=== PATIENT | male | born 1955 | race Caucasian/White ===

== ENCOUNTER 2022-08-20 06:45 | Outpatient (OUT) | payer OTHER, SELFPAY ==
[2022-08-20 09:53] LABS: Alanine Aminotransferase 31 U/L (16-63); Albumin Globulin Ratio 1.2; Albumin Level 3.7 g/dL (3.4-5.0); Alkaline Phosphatase 68 U/L (46-116); Anion Gap 9.7; Aspartate Amino Transferase 19 U/L (15-37); BUN Creatinine Ratio 23.3; Bilirubin Total 0.9 mg/dL (0.2-1.0); Calcium 9.3 mg/dL (8.5-10.1); Chloride 105 mmol/L (98-107); Estimated GFR (African America >60 (>=60); Estimated GFR (Non-African Ame >60 (>=60); Globulin 3.2 g/dL; Glucose 95 mg/dL (74-106); Potassium 4.7 mmol/L (3.5-5.1); Sodium 142 mmol/L (136-145); Total Protein 6.9 g/dL (6.4-8.2)
[2022-08-21 08:12] LABS: PSA, Free 0.71 ng/mL; Prostate Specific Ag 7.3 ng/mL (0.0-4.0)
== END 2022-08-20 06:46 ==
LOC: LAB 06:53
PROVIDERS: PCP Family Medicine; Visit Provider Family Medicine
DX: M54.16 Radiculopathy, lumbar region (principal)
CPT/HCPCS: 36415; 80053; 84153; 84154

== ENCOUNTER 2022-09-18 06:06 | Outpatient (OUT) | payer OTHER, SELFPAY ==
[2022-09-19 05:09] LABS: PSA, Free 0.59 ng/mL; Prostate Specific Ag 4.5 ng/mL (0.0-4.0)
== END 2022-09-18 06:07 | disposition home or self-care (01) ==
LOC: LAB 06:07
PROVIDERS: PCP Family Medicine; Visit Provider Urology
DX: R97.20 Elevated prostate specific antigen [PSA] (principal)
CPT/HCPCS: 36415; 84153; 84154

== ENCOUNTER 2022-11-20 07:47 | Outpatient (OUT) | payer OTHER, SELFPAY ==
--- NOTE | 2022-11-20 07:53 | ECG_ITS ---
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
--- NOTE | 2022-11-20 08:41 | PM.PRESUREVA ---
History of Present Illness History of Present Illness Chief complaint: elevated PSA Narrative: Patient presents for preadmission testing. Please see HPI from Dr. Guillory dated 10/30/2022. Review of Systems ROS Narrative Please see ROS from Dr. Guillory dated 10/30/2022. [facility] Medical History (Updated 11/20/22 @ 08:26 by Felicia Garcia NP) Surgical History (Updated 11/20/22 @ 08:26 by Felicia Garcia NP) Family History (Updated 11/20/22 @ 08:26 by Felicia Garcia NP) Other Family history of diabetes mellitus Family history of heart disease Melanoma Social History (Updated 11/20/22 @ 08:21 by Felicia Garcia NP) Within the past year, how often did you have a drink containing alcohol: never Score interpretation: A score less than 4 is consistent with normal alcohol consumption. Smoking status: Never smoker Highest level of school completed/degree received: high school graduate Meds Home Medications and Allergies Home Medications Medication Instructions Recorded Confirmed Type carvedilol 6.25 mg tablet 6.25 mg PO QDAY 11/20/22 11/20/22 History hydrocodone 5 mg-acetaminophen 325 1 tab PO Q8H PRN pain 11/20/22 11/20/22 History mg tablet magnesium 200 mg tablet 200 mg PO DAILY 11/20/22 11/20/22 History multivitamin (Daily Multi-Vitamin 1 tab PO DAILY 11/20/22 11/20/22 History tablet) sildenafil 100 mg tablet 100 mg PO Q24H PRN sexual activity 11/20/22 11/20/22 History tizanidine 4 mg tablet 8 mg PO QPM PRN muscle spasticity 11/20/22 11/20/22 History Allergies Allergy/AdvReac Type Severity Reaction Status Date / Time Penicillins Allergy Hives Verified 11/20/22 08:17 Exam Narrative Exam Narrative: Constitutional: Awake, alert, comfortable, well-appearing, nontoxic, interactive, vital signs as charted Head: Normocephalic, atraumatic Neck: Supple, normal appearance, normal range of motion, no meningeal signs, no lymphadenopathy Respiratory: No respiratory distress, breath sounds clear Cardiovascular: Regular rate and rhythm, strong and regular heart tones Abdomen: Nontender, normal bowel sounds, soft, no CVA tenderness Musculoskeletal: Normal gait, no swelling or edema Skin: No rashes or induration, no lesions, only visible skin inspected Neuro: No neurological deficits, normal sensation Psychiatric: Oriented ?3, normal affect Assessment and Plan Assessment and Plan (1) BPH with obstruction/lower urinary tract symptoms: (2) Elevated PSA: Plan Transperineal prostate biopsy scheduled with Dr. Guillory 11/30/2022.
[2022-11-20 08:51] LABS: Basophils Absolute Auto 0.1 10^3/uL (0.0-0.1); Basophils Percent Auto 0.6 % (0.2-2.0); Eosinophils Absolute Auto 0.2 10^3/uL (0.0-0.7); Eosinophils Percent Auto 2.4 % (0.9-7.0); Immature Granulocytes Abs Auto 0.09 10^3/uL (0.00-0.03); Immature Granulocytes Pct Auto 0.9 % (0.0-0.5); Lymphocytes Absolute Auto 2.1 10^3/uL (1.2-3.8); Lymphocytes Percent Auto 21.3 % (20.5-60.0); Mean Corpuscular HGB Conc 33.3 g/dL (29.9-35.2); Mean Corpuscular Hemoglobin 32.3 pg (25.9-34.0); Mean Platelet Volume 9.3 fL (9.5-13.5); Monocytes Percent Auto 10.4 % (1.7-12.0); Neutrophils Absolute Auto 6.3 10^3/uL (1.4-6.5); Neutrophils Percent Auto 64.4 % (43.0-75.0); Platelet Count 272 10^3/uL (150-450); Red Blood Count 4.64 10^6/uL (4.70-6.10); Red Cell Distribution Width 12.1 % (11.0-15.0); White Blood Count 9.8 10^3/uL (4.0-11.0)
[2022-11-20 09:00] LABS: Anion Gap 11.3; Calcium 9.8 mg/dL (8.5-10.1); Carbon Dioxide 30.8 mmol/L (21.0-32.0); Chloride 105 mmol/L (98-107); Estimated GFR (African America >60 (>=60); Estimated GFR (Non-African Ame >60 (>=60); Glucose 100 mg/dL (74-106); Potassium 5.1 mmol/L (3.5-5.1); Sodium 142 mmol/L (136-145)
== END 2022-11-20 07:48 | disposition home or self-care (01) ==
LOC: PST 07:48
PROVIDERS: PCP Family Medicine; Visit Provider Urology
DX: Z01.810 Encounter for preprocedural cardiovascular examination (principal); Z01.812 Encounter for preprocedural laboratory examination; R97.20 Elevated prostate specific antigen [PSA]; I10 Essential (primary) hypertension
CPT/HCPCS: 36415; 80048; 85025; 93005; G0463

== ENCOUNTER 2022-11-27 12:08 | Day surgery (SDC) | payer OTHER, SELFPAY ==
[2022-11-20 08:38] VITALS: BP 150/96; PULSE 66; RESP 16; TEMP 36.3; O2SAT 98; BMI 26.0
[2022-11-27] VITALS (12 sets, daily range): BP systolic 133–176; BP diastolic 69–97; PULSE 54–83; RESP 10–21; TEMP 36.3–36.9; O2SAT 96–99; BMI 24.0
[2022-11-27] MEDS: LACTATED RINGER'S SOLUTION 1,000 ML 50 ML IV ×2 (12:42→15:26)
[2022-11-27] MEDS: CEFAZOLIN SODIUM/DEXTROSE,ISO 2 GM/50 ML PIGGYBACK IV (14:05)
[2022-11-27] MEDS: LIDOCAINE HCL 1% 100 MG/10 ML MDV INJ (14:37)
[2022-11-27] MEDS: BACITRACIN OINTMENT 28.4 GM TUBE 1 APPLIC TOPICAL (14:53)
--- NOTE | 2022-11-27 15:04 | P.URON_ITS ---
Urology Surgery Operative Note Operative Note Procedure Date: 11/27/22 Time Out Performed: yes Pre-op Diagnosis: 1. Elevated PSA Post-op Diagnosis: same as pre-op Procedures performed: 1. Needle prostate biopsy, transperineal approach 2. Transrectal ultrasound of prostate and seminal vesicles 3. Nerve block of prostate Anesthesia: MAC (Dr. Loera) Primary Surgeon: Shae Guillory Complications: none Estimated blood loss (mL): 1 Findings: Scattered prostate calcifications. No discrete hypoechoic lesions. GALILEA benign. Uneventful standard transperineal prostate biopsy per below. Specimens: 1. Right posterior medial (2 cores) 2. Right posterior lateral (2 cores) 3. Right base (2 cores) 4. Right anterior lateral (2 cores) 5. Right anterior medial (2 cores) 6. Left anterior medial (2 cores) 7. Left anterior lateral (2 cores) 8. Left base (2 cores) 9. Left posterior lateral (2 cores) 10. Left posterior medial (2 cores) Indications for Procedures: 67 year old male with history of elevated PSA 4.5, 13.1% free on 09/18/22 (decreased from 7.3, 9.7% free on 08/20/22), PSA density 0.14. MP-MRI prostate 10/28/22 negative for concerning lesions. Prostate volume 32 ml. After discussion of risks/benefits of management options and biopsy approaches, he elected to proceed with MRI fusion transperineal prostate biopsy. Risks were discussed to include but not limited to bleeding, pain, infection, damage to surrounding structures, hematuria, difficulty urinating, ecchymosis, swelling, injury from positioning, and need for additional procedures. Detailed description of Procedure: After informed consent was obtained, the patient was brought to the operating suite and transferred onto the operating table in supine position. Sequential c ompression devices were placed on bilateral lower extremities. He received the appropriate dose of preoperative IV antibiotics (Cefazolin 2 g) and MAC was induced. He was positioned in the dorsal lithotomy position with scrotum secured out of the perineum with tape, and the appropriate pressure points padded, prepped and draped in the usual fashion for this procedure. An operative timeout was performed confirming the patient's identity, procedure and safety checks. A digital rectal exam was performed noting mildly enlarged prostate, no firm nodules. A well lubricated biplane transrectal ultrasound probe was inserted into the rectum and the prostate was aligned. The gland was visualized fully in axial and sagittal views to allow for identification of anatomy and location of the urethra as noted in findings. The skin followed by periprostatic local anesthetic lidocaine 1% was delivered. The Precision Point device was placed on the ultrasound probe for transperineal approach. Two biopsies were obtained in a systematic fashion from 10 regions of the prostate including the medial and lateral aspects of the anterior and posterior prostate, as well as base of the right and left lobes. The ultrasound probe was removed and the perineum was cleaned and dressed with antibiotic ointment, fluffs and scrotal support. The patient was awakened from anesthesia and sent to PACU in stable condition. Plan: Void prior to discharge home. Follow up in 1-2 weeks for pathology review. Other Provider present: No Post Operative care instructions: see discharge instructions
--- NOTE | 2022-11-27 16:15 | PC.NURSE ---
PATIENT' BLOOD PRESSURE WAS UP AT ADMISSION SLIGHTLY UP AT DISCHARGE, PATIENT DENIES ANY DISCOMFORT AND WANTED TO LEAVE
== END 2022-11-27 16:18 | disposition home or self-care (01) ==
PROVIDERS: PCP Family Medicine; Visit Provider Urology
PROC: (CPT 55700; principal; 2022-11-27 13:15)
DX: R97.20 Elevated prostate specific antigen [PSA] (principal); I10 Essential (primary) hypertension; N40.1 Benign prostatic hyperplasia with lower urinary tract symptoms; Z90.49 Acquired absence of other specified parts of digestive tract
CPT/HCPCS: 55700; 36415; 88305; J2704

== ENCOUNTER 2023-02-25 08:28 | Outpatient (OUT) | payer OTHER, SELFPAY ==
--- NOTE | 2023-02-25 08:35 | MR_ITS ---
[address] [address] Patient Name: BRADEN PAYNE MRN: [id number] date: 1955 Sex: M Assigned Patient Location: MRI Current Patient Location: MRI Accession/Order Number: [id number] Exam Date: 02/25/2023 08:46 Report Date: 02/25/2023 10:03 At the request of: ESTER CAIN Procedure: MR lumbar spine wo con EXAM: MR lumbar spine wo con HISTORY: Radiculopathy Lumbar Region M54.16, COMPARISON: MR lumbar spine 08/08/2017. TECHNIQUE: Multiplanar multisequence MR imaging of lumbar spine was performed without intravenous contrast. FINDINGS: Alignment: No substantial subluxation. Vertebrae: Vertebral body heights are maintained. No marrow signal abnormalities to suggest neoplasm. Conus medullaris: Conus terminates in normal position at L1. Normal signal and contour. Degenerative changes: T12-L1: Moderate disc height loss greater posteriorly. Mild diffuse disc bulge. Mild facet arthropathy. Mild canal stenosis. Mild bilateral foraminal stenosis. L1-L2: Mild to moderate disc height loss greater posteriorly. Mild diffuse disc bulge. Mild facet arthropathy slightly greater on the left. Minimal thickening of ligamentum flavum. Mild canal stenosis. Minimal bilateral foraminal stenosis. Small Schmorl's node with minimal inferior plate of L1. L2-L3: Probable prior partial discectomy change with improved canal patency compared to 2018. Moderate disc height loss with fatty degenerative endplate change surrounding the disc. Diffuse disc bulge slightly eccentric to left with marginal osteophytic spurring. Mild facet arthropathy. Minimal narrowing of left subarticular recess without substantial canal stenosis. Moderate bilateral foraminal stenosis similar to minimally progressed from 2018. L3-L4: Moderate disc height loss. Diffuse disc bulge with superimposed left central/subarticular protrusion. Moderate facet arthropathy. Posterior decompressive change. No substantial canal stenosis, improved from 2018.. Advanced bilateral foraminal stenosis, similar to prior. L4-L5: Mild to moderate disc height loss. Small Schmorl's node involving the endplates surrounding the disc space. Eccentric right diffuse disc bulge with marginal osteophytic spurring. Mild facet arthropathy. Posterior decompressive change. No substantial canal stenosis. Moderate to advanced bilateral foraminal stenosis. Progressed. L5-S1: No substantial canal or foraminal stenosis. Upper Sacrum: No focal lesion identified. Multifocal fatty replacement of the sacrum greater involving the posterior aspect of the S2 and S3 vertebral bodies, partially visualized and unchanged from 2018. Additional comments: Visualized soft tissues of the abdomen appear grossly unremarkable. MR/MR lumbar spine wo con IMPRESSION: 1. Posterior decompressive change at L3 and L4 with likely interval discectomy at L2-L3 with improved canal patency at L2-L3 and L3-L4 compared to 2018. 2. Moderate degenerative change of lumbar spine as detailed above without substantial canal stenosis. 3. Multilevel moderate and/or advanced foraminal stenosis detailed above. This is similar to minimally progressed from 2018. Electronically authenticated by: ISAEL HERNANDEZ Date: 02/25/2023 10:03
== END 2023-02-25 08:29 | disposition home or self-care (01) ==
LOC: MRI 08:28
PROVIDERS: PCP Family Medicine; Visit Provider Family Medicine
DX: M54.16 Radiculopathy, lumbar region (principal)
CPT/HCPCS: 72148

== ENCOUNTER 2023-03-06 08:06 | Outpatient (OUT) | payer OTHER, SELFPAY ==
--- OUTSIDE RECORDS SUMMARY | 2023-03-06 08:09 | XMS_ITS | CCD ---
Author Name Unknown Address [address] [place] [address] Organization [facility] Care Team Providers Care Custodian [employer] Name Role Phone ESTER CRAVEN Referring Unavailable ESTER CRAVEN Primary Care Unavailable DOMENIC UREÑA Attending Unavailable DOMENIC UREÑA Admitting Unavailable Ester Craven Primary Care Physician Dr. Ester Craven Primary Care Unavail able Edenilson Knight Consulting Unavailable CARLITOSY ., DR NORMAN Primary Care Unavailable LATISHA ., MECHE Admitting Unavailable LATISHA ., MECHE Attending Unavailable LATISHA ., MECHE Consulting Unavailable HOY ., DR NORMAN Admitting Unavailable HOY ., DR NORMAN Primary Care Unavailable HOY ., DR NORMAN Consulting Unavailable HOY ., DR NORMAN Attending Unavailable ZIEBER, DR WILTON Rodriguez Consulting Unavailable HOY ., DR NORMAN Attending Unavailable HOY ., DR NORMAN Admitting Unavailable HOY ., DR NORMAN Primary Care Unavailable HOY ., DR NORMAN Consulting Unavailable ZIEBER, DR WILTON Rodriguez Consulting Unavailable NILL ., DR COWAN Admitting Unavailable NILL ., DR COWAN Attending Unavailable HOY ., DR NORMAN Primary Care Unavailable NILL ., DR COWAN Consulting Unavailable HOY ., DR NORMAN Admitting Unavailable HOY ., DR NORMAN Primary Care Unavailable HOY ., DR NORMAN Consulting Unavailable HOY ., DR NORMAN Attending Unavailable HOY ., DR NORMAN Admandrew Unavailable HOY ., DR NORMAN Primary Care Unavailable HOY ., DR NORMAN Attending Unavailable HOY ., DR NORMAN Admandrew Unavailable HOY ., DR NORMAN Primary Care Unavailable HOY ., DR NORMAN Consulting Unavailable CARLITOSY ., DR NORMAN Attending Unavailable MD Ester Craven Primary Care Provider [phone] MD Shae Guillory Attending Provider [phone] Ester Craven Primary Care Unavailable Shae Guillory Attending Unavailable Shae Guillory Admitting Unavailable NILL, Camryn R Attending Unavailable NILL, Camryn R Attending Unavailable NILL, Camryn R Attending Unavailable Ester Craven Referring Unavailable NILL, Camryn R Attending Unavailable NILL, Camryn R Attending Unavailable Shae Guillory. Attending Unavailable Shae Guillory. Attending Unavailable Shae Guillory. Attending Unavailable Ester Craven Referring Unavailable Shae Guillory. Attending Unavailable Shae Guillory Attending Unavailable Shae Guillory. Attending Unavailable NILL, Camryn R Attending Unavailable NILL, Camryn R Referring Unavailable NILL, Camryn R Admitting Unavailable NILL, Camryn R Admitting Unavailable NILL, Camryn R Attending Unavailable NILL, Camryn R Referring Unavailable Allergies Allergy Classification Reported Allergen(s) Allergy Type Date of Onset Reaction(s) Facility Penicillins (antibiotic) (1 source) Penicillins Drug Allergy 1 [facility] Repository (7 sources) Penicillin; Translations: [penicillin] Drug Allergy Eruption of skin (disorder) [facility] [place] (1 source) Penicillins Drug allergy (disorder) 3 [facility] Repository (1 source) Unable to Assess Drug allergy (disorder) 3 [facility] Repository (1 source) No Known Medication Allergies; Translations: [No Known Medication Allergies] Propensity to adverse reactions (disorder) [facility] Repository Medications Current Medications Medication Drug Class(es) Dates Sig (Normalized) Sig (Original) acetaminophen 325 mg / HYDROcodone bitartrate 5 mg oral tablet (6 sources) Opioid Agonist Start: 09-11-2022 take 1 tablet by mouth every eight hours as needed for pain acetaminophen-hyd rocodone 325 mg-5 mg oral tablet 1 tab(s), Oral, q8hr as needed for pain, Refill(s) 0 Start Date: 09/11/22 Status: Ordered Start: 09-26-2020 take 1 tablet by raya th every eight hours as needed for pain acetaminophen-hydrocodone 300 mg-5 mg or al tablet 1 tab(s), Oral, q8hr as needed for pain, Refill(s) 0 Start Date: 09/26/20 Status: Ordered carvedilol 6.25 mg oral tablet (6 sources) alpha-Adrenergic Janak, beta-Adrenergic Janak Start: 09-11-2022 take 1 tablet by mouth twice daily carvedilol 6.25 mg Tab 6.25 mg = 1 tab(s), Oral, BID, Refills(s) 0 Start Date: 09/11/22 Status: Ordered Start: 04-03-2022 take 1 tablet by raya th twice daily carvedilol 25 mg Tab 25 mg = 1 tab(s), Oral, BID, Refills(s) 0, High blood pressure Start Date: 04/03/22 Status: Ordered Celebrate Multivitamin (5 sources) Start: 04-22-2022 take 1 tablet by mouth once daily Celebrate Multivitamin 1 tab(s), Oral, Daily, Prophylaxis Start Date: 04/22/22 Status: Ordered Fish Oils (3 sources) Start: 04-22-2022 take 1 capsule by mouth once daily Fish Oil 1 cap, Oral, Daily, Prophylaxis Start Date: 04/22/22 Status: Ordered isoniazid 300 mg oral tablet (1 source) Antimycobacterial Start: 09-26-2020 take 1 tablet by mouth once daily isoniazid 300 mg Tab 300 mg = 1 tab(s), Oral, Daily, Refills(s) 0 Start Date: 09/26/20 Status: Ordered lisinopril 20 mg oral tablet (1 source) Angiotensin Converting Enzyme Inhibitor Start: 04-03-2022 take 1 tablet by mouth once daily lisinopril 20 mg Tab 20 mg = 1 tab(s), Oral, Daily, Refills(s) 0 Start Date: 04/03/22 Status: Ordered magnesium oxide 400 mg oral tablet (6 sources) Start: 09-26-2020 take 1 tablet by mouth once daily magnesium oxide 400 mg Tab 400 mg = 1 tab(s), Oral, Daily, Refills(s) 0, Prophylaxis Start Date: 09/26/20 Status: Ordered sildenafil 100 mg oral tablet (2 sources) Phosphodiesterase 5 Inhibitor Start: 09-11-2022 take 1 tablet by mouth once daily as needed sildenafil 100 mg Tab 100 mg = 1 tab(s), Oral, Daily, PRN as needed, Refills(s) 0 Start Date: 09/11/22 Status: Ordered tiZANidine 4 mg oral tablet (6 sources) Central alpha-2 Adrenergic Agonist Start: 04-03-2022 take 2 tablets by mouth at bedtime tiZANidine 4 mg Tab 8 mg = 2 tab(s), Oral, Bedtime, Refills(s) 0, Insomnia Start Date: 04/03/22 Status: Ordered turmeric extract 500 mg oral capsule (5 sources) Start: 04-22-2022 take 1 capsule by mouth once daily turmeric 500 mg oral capsule 500 mg = 1 cap(s), Oral, Daily, Prophylaxis Start Date: 04/22/22 Status: Ordered Problems Problem Classification Problem Date Documented Date Episodic/Chronic Abdominal hernia (16 sources) Hernia of anterior abdominal wall; Translations: [Ventral hernia without obstruction or gangrene] Onset: 03-18-2022 Episodic Abdominal pain (11 sources) Epigastric pain; Translations: [Epigastric pain] Onset: 03-16-2022 Episodic Cardiac dysrhythmias (12 sources) Supraventricular tachycardia; Translations: [Ventricular premature beats] 09-26-2020 Chronic Disorders of lipid metabolism (6 sources) Pure hypercholesterolemia, unspecified; Translations: [Pure hypercholesterolemia] Onset: 03-06-2022 Chronic Diverticulosis and diverticulitis (8 sources) Diverticular disease 09-26-2020 Chronic Essential hypertension (6 sources) Hypertensive disorder 05-27-2019 Chronic Genitourinary symptoms and ill-defined conditions (2 sources) Blood in urine; Translations: [Gross hematuria] Onset: 12-05-2022 Episodic Hemorrhoids (6 sources) Internal hemorrhoids 09-26-2020 Episodic Hyperplasia of prostate (6 sources) Benign prostatic hypertrophy with outflow obstruction; Translations: [Benign prostatic hyperplasia with lower urinary tract symptoms] Onset: 09-04-2022 Chronic Neoplasms of unspecified nature or uncertain behavior (6 sources) Neoplasm of uncertain behavior of skin 05-27-2019 Episodic Other and unspecified benign neoplasm (6 sources) Dermal cellular nevus 06-15-2019 Episodic Other diseases of kidney and ureters (1 source) Urinary tract obstruction; Translations: [Other obstructive and reflux uropathy] Onset: 09-04-2022 Episodic Other non-epithelial cancer of skin (6 sources) 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 05-26-2019 Episodic Other nutritional; endocrine; and metabolic disorders (6 sources) Overweight in adulthood with body mass index of 25 or more but less than 30 04-03-2022 Episodic Other screening for suspected conditions (not mental disorders or infectious disease) (12 sources) Abnormal results of liver function studies; Translations: [Encounter for screening for malignant neoplasm of prostate] Onset: 01-01-2022 Episodic Other skin disorders (6 sources) Inflamed seborrheic keratosis 09-28-2020 Episodic Other skin disorders (6 sources) Senile hyperkeratosis 05-26-2019 Episodic Other skin disorders (6 sources) Skin tag 09-28-2020 Episodic Spondylosis; intervertebral disc disorders; other back problems (6 sources) Lumbar spondylosis 09-26-2020 Chronic Spondylosis; intervertebral disc disorders; other back problems (12 sources) Lumbar radiculopathy; Translations: [Radiculopathy, cervical region] Onset: 01-18-2022 09-26-2020 Episodic Unclassified (6 sources) Patient encounter status 09-28-2020 Varicose veins of lower extremity (2 sources) Varicose veins of lower extremity 09-11-2022 Episodic Results Test Name Value Interpretation Reference Range Facility Reminderson 12-31-2022 Reminders - From: Marika Roberson To: EU - Recalls Lue; Sent: 10/30/2022 12:50:59 EDT Show up: 11/30/2022 12:50:00 EDT Subject: Reminder Message Due Date/Time: 12/30/2022 12:50:00 EDT Pt is to get PSA prior to f/u appt. Order was given to pt. Patient was seen in office 12/05/22 [facility] Lab Reportson 12-23-2022 Lab Reports [id number] .00TIFF [facility] Formson 12-06-2022 Forms [id number] .00CD:127 [facility] Pathology Noteon 12-06-2022 Pathology Note [id number]# 1.00CD:127 [facility] Screenson 12-06-2022 Screens [id number] 1.00CD:[address] [facility] Screens [id number] .00CD:[address] [facility] Patient Educationon 12-06-19 Patient Education Oncology Prostate Cancer Screening Prostate cancer screening is testing that is done to check for the presence of prostate cancer in men. The prostate gland is a walnut-sized gland that is located below the bladder and in front of the rectum in males. The function of the prostate is to add fluid to semen during ejaculation. Prostate cancer is one of the most common types of cancer in men. Who should have prostate cancer screening? Screening recommendations vary based on age and other risk factors, as well as between the professional organizations who make the recommendations. In general, screening is recommended if: ? You are age 50 to 70 and have an average risk for prostate cancer. You should talk with your health care provider about your need for screening and how often screening should be done. Because most prostate cancers are slow growing and will not cause , screening in this age group is generally reserved for men who have a 10- to 15-year life expectancy. ? You are younger than age 50, and you have these risk factors: ? Having a father, brother, or uncle who has been diagnosed with prostate cancer. The risk is higher if your family member's cancer occurred at an early age or if you have multiple family members with prostate cancer at an early age. ? Being a male who is Black or is of [place] or sub-Saharan descent. In general, screening is not recommended if: ? You are younger than age 40. ? You are between the ages of 40 and 49 and you have no risk factors. ? You are 70 years of age or older. At this age, the risks that screening can cause are greater than the benefits that it may provide. If you are at high risk for prostate cancer, your health care provider may recommend that you have screenings more often or that you start screening at a younger age. How is screening for prostate cancer done? The recommended prostate cancer screening test is a blood test called the prostate-specific antigen (PSA) test. PSA is a protein that is made in the prostate. As you age, your prostate naturally produces more PSA. Abnormally high PSA levels may be caused by: ? Prostate cancer. ? An enlarged prostate that is not caused by cancer (benign prostatic hyperplasia, or BPH). This condition is very common in older men. ? A prostate gland infection (prostatitis) or urinary tract infection. ? Certain medicines such as male hormones (like testosterone) or other medicines that raise testosterone levels. A rectal exam may be done as part of prostate cancer screening to help provide information about the size of your prostate gland. When a rectal exam is performed, it should be done after the PSA level is drawn to avoid any effect on the results. Depending on the PSA results, you may need more tests, such as: ? A physical exam to check the size of your prostate gland, if not done as part of screening. ? Blood and imaging tests. ? A procedure to remove tissue samples from your prostate gland for testing (biopsy). This is the only way to know for certain if you have prostate cancer. What are the benefits of prostate cancer screening? ? Screening can help to identify cancer at an early stage, before symptoms start and when the cancer can be treated more easily. ? There is a small chance that screening may lower your risk of dying from prostate cancer. The chance is small because prostate cancer is a slow-growing cancer, and most men with prostate cancer from a different cause. What are the risks of prostate cancer screening? The main risk of prostate cancer screening is diagnosing and treating prostate cancer that would never have caused any symptoms or problems. This is called overdiagnosisand overtreatment. PSA screening cannot tell you if your PSA is high due to cancer or a different cause. A prostate biopsy is the only procedure to diagnose prostate cancer. Even the results of a biopsy may not tell you if your cancer needs to be treated. Slow-growing prostate cancer may not need any treatment other than monitoring, so diagnosing and treating it may cause unnecessary stress or other side effects. Questions to ask your health care provider ? When should I start prostate cancer screening? ? What is my risk for prostate cancer? ? How often do I need screening? ? What type of screening tests do I need? ? How do I get my test results? ? What do my results mean? ? Do I need treatment? Where to find more information ? The [place] [employer]: www.cancer.org ? [place] [employer]: www.auanet.org Contact a health care provider if: ? You have difficulty urinating. ? You have pain when you urinate or ejaculate. ? You have blood in your urine or semen. ? You have pain in your back or in the area of your prostate. Summary ? Prostate cancer is a common type of cancer in men. The prostate gland is located below the bladder and in front of the rectum. This gland adds flu (more content not included)... Normal [facility] Urology Office/Clinic Noteon 12-05-2022 Urology Office/Clinic Note Chief Complaint Pt is here for PO TP biopsy HPI Staff Braden is a 67 y.o. male here for PO TP prostate biopsy. Previous Dx: PBH w/ obstruction/lower urinary tract symptoms, elevated PSA. S/P TP prostate biopsy done on 11/27/22. Dysuria: denies Incomplete bladder emptying: denies Hematuria: last seen a couple days ago Frequency: mild depending on fluid intake Urgency: denies Nocturia: 1x a night Stream: steady stream Leaking: denies Post void dripping: denies Wearing pads/ Depends: denies Urge incontinence: denies Stress incontinence: denies Incontinence without Sensory Awareness: denies Abdominal pain: denies Flank pain: denies Sexual complaints: _ History of Present Illness Tests reviewed: reviewed UA, op note, path I have reviewed the previous health record information and history for this patient from Dr. Guillory. I have reviewed and verified the staff HPI to be accurate for this encounter. There have been no associated fever, chills, flank pain, or blood in the urine. Denies any urinary infections since last encounter. Review of Systems PHQ Score Initial Depression Screen Score: 0 ROS - Provider Constitutional: denies weight loss, denies hot flashes. Eyes: denies eye problems. Gastrointestinal: denies nausea, denies vomiting. Cardiovascular: denies chest pain or angina. Integumentary: no dryness Musculoskeletal: denies musculoskeletal symptoms. ENMT: denies otolaryngeal symptoms. Respiratory: no shortness of breath. Heme/Lymph: denies easy bleeding tendency, denies easy bruising tendency. Psychiatric: no confusion, no anxiety. Genitourinary: See HPI. Physical Exam Vitals & Measurements HT: 72 in HT: 182 cm WT: 84 kg WT: 184.8 lb BMI: 25.36 General Appearance: alert, no distress, well nourished, well developed male. Genitourinary: Flank Pain: none. Bladder: nonpalpable. Assessment/Plan Pt here with family member today. SINDY 14 (15). CT ab 04/11/22 - shows a fat filled ventral hernia approx 5.3 x 5.1 cm in diameter and 1.2cm in thickness protruding through a 1cm wide neck, midway between sternal xiphoid and umbilicus. 1. Elevated PSA (R97.20: Elevated prostate specific antigen [PSA]) PSA: 06/07/19 - 0.54 10/23/20 - 0.58 12/28/21 - 0.69. Testosterone - 766. 08/20/22 - 7.3 & 10% 09/18/22 - 4.5 & 13%. PSAD 0.14. GALILEA 09/04/22 - moderately enlarged prostate, no hard nodule observed, Rt side a little higher then Lt side, non tender [1]. Select [facility] 09/04/22 - 44% likelihood of prostate cancer upon bx. and 17% likelihood of detecting Coleraine scores >=7 cancer. MRI of prostate 10/28/22 - No MRI evidence of prostate malignancy. Prostate Volume 32 mL. No family hx of prostate cancer or contributory malignancies. [1] S/p TP prostate bx 11/27/22 - All benign. No inflammation noted. Reviewed path with pt. Discussed possible causes of false PSA elevation. Discussed further genetic testing with Conf[facility]. Pt would like to proceed Follow up 6 mos with PSA F/T or sooner if needed. Pt understands and agrees with plan. -Send tissue for [facility]. Will call pt with results. -Limit prostate manipulation at least 5 day prior to blood draw. 2. Gross hematuria (R31.0: Gross hematuria) Last saw gross blood a couple days ago. Expected after bx, will cont to monitor for resolution with time (about a month) and healing. 3. BPH with obstruction/lower urinary tract symptoms (N40.1: Benign prostatic hyperplasia with lower urinary tract symptoms) 09/04/22- PVR 13 ml IPSS 11 (1). Still having some soreness from bx for #1. Not taking any BPH meds. States he had episode where he was unable to void for about a day. Started taking d-mannose and OTC prostate supplement, was able to void. Nocturia 1x/night. -Limit/stop fluid 2 hr before bed. -Pt knows to notify the office if sx were to worsen/become bothersome. I spent 35 minutes today with the patient: reviewing tests in preparation to see and discuss them with the patient, documenting clinical information in the electronic health records, and care coordination. Time was spent performing a medical exam and evaluation, counseling and educating the patient/family, and ordering medications, tests, and procedures in caring for the patient. Follow-up With When Contact Information Kahlil JERNIGAN, Shae Powell, URL, URO Additional Instructions: 6 mos with PSA FT Patient Education Prostate Cancer Screening I, Mary Marino, personally scribed for Dr. Guillory on 12/05/2022 13:23:09. . Documentation recorded by the scribe, Mary Marino, accurately reflects the services(s) I performed and decisions made by me. Authenticated by Dr. Guillory on 12/05/2022 13:40:23. Problem List/Past Medical History Ongoing BMI 26.0-26.9,adult BPH with obstruction/lower urinary tract symptoms Cervical radiculopathy Diverticular disease Diverticulosis Elevated PSA Epigastric pain Gross hematur (more content not included)... Normal [facility] Comment on above: Result Comment: Elec tronically Signed By: Shae Guillory MD\.br\Date and Time Signed: 12/05/22 13:41 EDT\.br\Electronically Co-Signed By: Mary Marino\.br\Date and Time Co-Signed: 12/05/22 13:23 EDT Operative Reporton Operative Report [id number] .00CD:[address] [facility] Lab Reportson 11-20-2022 Lab Reports [id number]. 00CD:[address] [facility] Insurance Correspondenceon 0 11-04-2022 Insurance Correspondence [id number]# 1.00CD:127 [facility] Formson 10-31-2022 Forms [id number]# 1.00CD:127 [facility] Forms [id number] .00CD:127 [facility] Ambulatory Visit Summaryon 0 10-30-2022 Ambulatory Visit Summary BRADEN PAYNE :1955 Visit Date:10/30/2022 Ambulatory Visit Instructions Your Diagnosis Elevated PSA BPH with obstruction/lower urinary tract symptoms Your Care Team Attending Physician - Shae Guillory MD Primary Care Physician - Ester Craven MD This Is Your Medications List Contact prescribing physician if questions or concerns Turmeric (turmeric 500 mg oral capsule) acetaminophen-hydroco done (acetaminophen-hydroc odone 325 mg-5 mg oral tablet) carvedilol (carvedilol 6.25 mg Tab) magnesium oxide (magnesium oxide 400 mg Tab) multivitamin with minerals (Celebrate Multivitamin) sildenafil (sildenafil 100 mg Tab) tizanidine (tiZANidine 4 mg Tab) Procedures Performed Laparoscopic repair of obstructed ventral hernia (04/29/2022), Back (03/10/2012), Back (1999), Cholecystectomy (03/10/1993), Excision of lesion of skin, Laminectomy. Discharge Vitals Heart Rate (Peripheral) 73 Blood Pressure 145/92 Height 182 cm Height 72 in Weight 84.36 kg Weight 185.592 lb BMI 25.47 What to do next Scheduled Follow-Up Appointments Friday 9:00 AM EDT With: Shae Guillory MD Where: [facility] Patient Educationon 10-31-19 Patient Education Oncology Prostate Cancer Screening Prostate cancer screening is testing that is done to check for the presence of prostate cancer in men. The prostate gland is a walnut-sized gland that is located below the bladder and in front of the rectum in males. The function of the prostate is to add fluid to semen during ejaculation. Prostate cancer is one of the most common types of cancer in men. Who should have prostate cancer screening? Screening recommendations vary based on age and other risk factors, as well as between the professional organizations who make the recommendations. In general, screening is recommended if: ? You are age 50 to 70 and have an average risk for prostate cancer. You should talk with your health care provider about your need for screening and how often screening should be done. Because most prostate cancers are slow growing and will not cause , screening in this age group is generally reserved for men who have a 10- to 15-year life expectancy. ? You are younger than age 50, and you have these risk factors: ? Having a father, brother, or uncle who has been diagnosed with prostate cancer. The risk is higher if your family member's cancer occurred at an early age or if you have multiple family members with prostate cancer at an early age. ? Being a male who is Black or is of [place] or sub-Saharan descent. In general, screening is not recommended if: ? You are younger than age 40. ? You are between the ages of 40 and 49 and you have no risk factors. ? You are 70 years of age or older. At this age, the risks that screening can cause are greater than the benefits that it may provide. If you are at high risk for prostate cancer, your health care provider may recommend that you have screenings more often or that you start screening at a younger age. How is screening for prostate cancer done? The recommended prostate cancer screening test is a blood test called the prostate-specific antigen (PSA) test. PSA is a protein that is made in the prostate. As you age, your prostate naturally produces more PSA. Abnormally high PSA levels may be caused by: ? Prostate cancer. ? An enlarged prostate that is not caused by cancer (benign prostatic hyperplasia, or BPH). This condition is very common in older men. ? A prostate gland infection (prostatitis) or urinary tract infection. ? Certain medicines such as male hormones (like testosterone) or other medicines that raise testosterone levels. A rectal exam may be done as part of prostate cancer screening to help provide information about the size of your prostate gland. When a rectal exam is performed, it should be done after the PSA level is drawn to avoid any effect on the results. Depending on the PSA results, you may need more tests, such as: ? A physical exam to check the size of your prostate gland, if not done as part of screening. ? Blood and imaging tests. ? A procedure to remove tissue samples from your prostate gland for testing (biopsy). This is the only way to know for certain if you have prostate cancer. What are the benefits of prostate cancer screening? ? Screening can help to identify cancer at an early stage, before symptoms start and when the cancer can be treated more easily. ? There is a small chance that screening may lower your risk of dying from prostate cancer. The chance is small because prostate cancer is a slow-growing cancer, and most men with prostate cancer from a different cause. What are the risks of prostate cancer screening? The main risk of prostate cancer screening is diagnosing and treating prostate cancer that would never have caused any symptoms or problems. This is called overdiagnosisand overtreatment. PSA screening cannot tell you if your PSA is high due to cancer or a different cause. A prostate biopsy is the only procedure to diagnose prostate cancer. Even the results of a biopsy may not tell you if your cancer needs to be treated. Slow-growing prostate cancer may not need any treatment other than monitoring, so diagnosing and treating it may cause unnecessary stress or other side effects. Questions to ask your health care provider ? When should I start prostate cancer screening? ? What is my risk for prostate cancer? ? How often do I need screening? ? What type of screening tests do I need? ? How do I get my test results? ? What do my results mean? ? Do I need treatment? Where to find more information ? The [place] [employer]: www.cancer.org ? [place] [employer]: www.auanet.org Contact a health care provider if: ? You have difficulty urinating. ? You have pain when you urinate or ejaculate. ? You have blood in your urine or semen. ? You have pain in your back or in the area of your prostate. Summary ? Prostate cancer is a common type of cancer in men. The prostate gland is located below the bladder and in front of the rectum. This gland adds flu (more content not included)... [facility] RAD - MRI Reporton RAD - MRI Report [id number] .00CD:[address] [facility] Urology Office/Clinic Noteon 10-30-2022 Urology Office/Clinic Note Chief Complaint 2 month follow up HPI Staff 2 month follow up to review MRI Prostate 10/28/22. Previous DX: BPH w/LUTS, elevated PSA. IPSS 1, SINDY 15. Select MDx done at time of last encounter Repeat PSA F/T 09/18/22 4.5 & 13.1% Dysuria: denies pain or burning Incomplete bladder emptying: denies Hematuria: denies visible blood Frequency: denies Urgency: denies Nocturia: denies Stream: denies hesitancy, denies weak stream Leaking: denies Post void dripping: denies Wearing pads/ Depends: denies Urge incontinence: denies Stress incontinence: denies Incontinence without Sensory Awareness: denies Abdominal pain: denies Flank pain: denies Sexual complaints: denies History of Present Illness Tests reviewed: reviewed UA, MRI, and PSA. I have reviewed the previous health record information and history for this patient from . I have reviewed and verified the staff HPI to be accurate for this encounter. There have been no associated fever, chills, flank pain, or blood in the urine. Denies any urinary infections since last encounter. Review of Systems PHQ Score Initial Depression Screen Score: 0 ROS - Provider Constitutional: denies weight loss, denies hot flashes. Eyes: denies eye problems. Gastrointestinal: denies nausea, denies vomiting. Cardiovascular: denies chest pain or angina. Integumentary: no dryness Musculoskeletal: denies musculoskeletal symptoms. ENMT: denies otolaryngeal symptoms. Respiratory: no shortness of breath. Heme/Lymph: denies easy bleeding tendency, denies easy bruising tendency. Psychiatric: no confusion, no anxiety. Genitourinary: See HPI. Physical Exam Vitals & Measurements HR: 73(Peripheral) BP: 145/92 HT: 72 in HT: 182 cm WT: 84.36 kg WT: 185.592 lb BMI: 25.47 General Appearance: alert, no distress, well nourished, well developed male. Assessment/Plan 67 yo male referred for follow up of elevated PSA. CT ab w04/11/22 - shows a fat filled ventral hernia approx 5.3 x 5.1 cm in diameter and 1.2cm in thickness protruding through a 1cm wide neck, midway between sternal xiphoid and umbilicus 1. Elevated PSA (R97.20: Elevated prostate specific antigen [PSA]) PSA 06/07/19 - 0.54 10/23/20 - 0.58 12/28/21 - 0.69 08/20/22 - 7.3 & 9.7% 09/18/22 - 4.5 & 13.1%, PSAD 0.14 Testosterone 12/28/21 - 766 Select MDX 09/04/22 - shows 44% likelihood of prostate cancer upon bx. and 17% likelihood of detecting Coleraine scores >=7 cancer. MRI Prostate wo/w Con - Prostate Volume 32mL, negative for malignancy Pt denies any family hx of prostate cancer or contributory malignancies. Pt denies any hx of infections. Today I reviewed the patients past history including voiding symptoms, PSA history and test results above. We discussed the controversies that exist in the field of PSA based cancer testing and the absence of exact correlation of PSA data to the presence or absence of prostate cancer on biopsy. I discussed the production of PSA by the prostate gland as well as common causes of elevated serum PSA including infection, inflammation, BPH and prostate cancer. He understood that his PSA level may also be falsely elevated due to any manipulation/instrume ntation around the time of a PSA draw. I discussed the absolute value of PSA as well as PSA velocity and age specific PSA and the implications with the patient. I gave the patient management options moving forward and explained the risks/benefits of each one: -Continue monitoring PSA with repeat in 6-12 months -Proceed with systemic prostate biopsy Plan: -Pt states he would like to get a repeat PSA level done 3 months from last, if still elevated/rising will then proceed with biopsy. Discussed the implications and risks of too frequent PSA checks. -Follow up in 2mos w/PSA F/T. All questions/concerns were discussed. Pt to call the office if he encounters any issues prior. Pt acknowledges understanding. 2. 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 IPSS 1(9), QoL 1(3), ISNDY 15(13) 09/04/22- PVR 13 ml Difficulty voiding, having straining, urgency, frequency and dysuria a few wks ago. Stopped around 08/25/22 after starting D-mannose recommended by . Recently started OTC prostate supplements, improved stream and symptoms. Declines further workup/tx. -Timed voids -Bowel regimen I spent 25 minutes today with the patient: reviewing tests in preparation to see and discuss them with the patient, documenting clinical information in the electronic health records, and care coordination. Time was spent performing a medical exam and evaluation, counseling and educating the patient/family, and ordering tests in caring for the patient. Follow-up With When Contact Information Kahlil JERNIGAN, Shae Powell, URL, URO In 2 months Additional Instructions: w/PSA Patient Education Prostate Cancer Screen (more content not included)... [facility] Comment on above: Result Comment: Elec tronically Signed By: Kahlil JERNIGAN, Shae Powell\.br\Date and Time Signed: 10/30/22 18:20 EDT\.br\Electronically Co-Signed By: Marika Roberson\.br\Date and Time Co-Signed: 10/30/22 11:03 EDT Creatinine (Bld) [Mass/Vol]O rdered By: Shae Guillory on 10-28-2022 Creatinine [Mass/Vol] 1.0 mg/dL 0.6-1.3 [facility] Comment on above: ER/ESD physician is notified/shown all ISTAT results.Critical values may be confirmed by laboratory testing ifdeemed necessary by ER attending doctor. MR prostate wo/w conon 10-28 MR prostate wo/w con [facility] [place] [address] MRI Report Signed Patient: Braden Payne MR#: [id number] : 1955 Acct:[id number] Age/Sex: 67 / M ADM Date: 10/28/22 Loc: MR Room: Type: [facility] Attending Dr: Shae Guillory MD Copies to: Shae Guillory MD Ordering Provider: Shae Guillory MD Date of Service: 10/28/22 MR/MR prostate wo/w con: R97.20 EXAMINATION: MR prostate wo/w con HISTORY: Elevated PSA COMPARISON: NONE TECHNIQUE: Multiparametric imaging of the prostate gland was performed with IV contrast. FINDINGS: Prostate Dimensions: 4.6 x 3.4 x 3.9 cm Prostate Volume: 32 mL Peripheral Zone: Heterogenous inT2 signal suggestive of prior prostatitis. No suspicious T2 or ADC map abnormality is identified to suggest prostate malignancy. Central/Transitional Zone: BPH changes. Seminal Vesicles: Unremarkable Neurovascular bundles: Unremarkable. Lymphadenopathy: No evidence of lymphadenopathy. Bladder: No focal lesion. Bowel: Diverticulosis. Peritoneal Cavity: No free fluid. Bones: No suspicious bony lesion. MR/MR prostate wo/w con IMPRESSION: No MRI evidence of prostate malignancy. BPH changes. Impression dictated by: James Pisano Jr., D.OMauri10/28/2022 1:56 PM Dictation Location: [facility] Transcribed By: [facility] 10/28/22 1356 Dictated By: James Pisano Jr, DO 10/28/22 1351 Signed By: 10/28/22 1356 [facility] Lab Reportson 10-20-2022 Lab Reports [id number] .00CD:[address] [facility] Reminderson 10-16-2022 Reminders - From: Marika Roberson To: EU - Recalls Lue; Sent: 09/04/2022 08:35:23 EDT Show up: 10/02/2022 08:35:00 EDT Subject: Reminder Message Actions: Reminder call the patient with results Due Date/Time: 10/02/2022 08:35:00 EDT Call pt with PSA results and sched MRI if PSA is still elevated. Select MDx also sent today MRI is scheduled for 10/28/22. Select MDx in que and waiting to be dropped into pt's chart. Pt has f/u appt w/r Lue 10/30/22 to review results[address] [facility] Lab Reportson 09-20-2022 Lab Reports [id number] .00CD:[address] [facility] Ambulatory Visit Summaryon 0 09-04-2022 Ambulatory Visit Summary BRADEN PAYNE :1955 Visit Date:09/04/2022 Ambulatory Visit Instructions Your Diagnosis Elevated PSA BPH with obstruction/lower urinary tract symptoms Other obstructive and reflux uropathy Tests Performed Urnls Dip Stick Auto w/o Microscopy POC [id number] Your Care Team Attending Physician - Kahlil JERNIGAN, Shae Powell Primary Care Physician - Ester Craven MD Referring Physician - Ester Craven MD This Is Your Medications List Contact prescribing physician if questions or concerns Fish Oil Turmeric (turmeric 500 mg oral capsule) acetaminophen-hydroco done (acetaminophen-hydroc odone 300 mg-5 mg oral tablet) carvedilol (carvedilol 25 mg Tab) magnesium oxide (magnesium oxide 400 mg Tab) multivitamin with minerals (Celebrate Multivitamin) tizanidine (tiZANidine 4 mg Tab) Procedures Performed Laparoscopic repair of obstructed ventral hernia (04/29/2022), Back (03/10/2012), Back (1999), Cholecystectomy (03/10/1993), Excision of lesion of skin, Laminectomy. Discharge Vitals Heart Rate (Peripheral) 51 Respiratory Rate 16 Blood Pressure 175/98 Height 182.88 cm Height 72 in Weight 84.36 kg Weight 185.592 lb BMI 25.22 What to do next Scheduled Follow-Up Appointments Friday 1:40 PM EDT With: Camryn SNELL MD Where: General Surgery [facility] Formson 09-04-2022 Forms [id number] .00CD:127 [facility] Patient Educationon 09-05-19 23 Patient Education Oncology Prostate Cancer Screening Prostate cancer screening is testing that is done to check for the presence of prostate cancer in men. The prostate gland is a walnut-sized gland that is located below the bladder and in front of the rectum in males. The function of the prostate is to add fluid to semen during ejaculation. Prostate cancer is one of the most common types of cancer in men. Who should have prostate cancer screening? Screening recommendations vary based on age and other risk factors, as well as between the professional organizations who make the recommendations. In general, screening is recommended if: ? You are age 50 to 70 and have an average risk for prostate cancer. You should talk with your health care provider about your need for screening and how often screening should be done. Because most prostate cancers are slow growing and will not cause , screening in this age group is generally reserved for men who have a 10- to 15-year life expectancy. ? You are younger than age 50, and you have these risk factors: ? Having a father, brother, or uncle who has been diagnosed with prostate cancer. The risk is higher if your family member's cancer occurred at an early age or if you have multiple family members with prostate cancer at an early age. ? Being a male who is Black or is of [place] or sub-Saharan descent. In general, screening is not recommended if: ? You are younger than age 40. ? You are between the ages of 40 and 49 and you have no risk factors. ? You are 70 years of age or older. At this age, the risks that screening can cause are greater than the benefits that it may provide. If you are at high risk for prostate cancer, your health care provider may recommend that you have screenings more often or that you start screening at a younger age. How is screening for prostate cancer done? The recommended prostate cancer screening test is a blood test called the prostate-specific antigen (PSA) test. PSA is a protein that is made in the prostate. As you age, your prostate naturally produces more PSA. Abnormally high PSA levels may be caused by: ? Prostate cancer. ? An enlarged prostate that is not caused by cancer (benign prostatic hyperplasia, or BPH). This condition is very common in older men. ? A prostate gland infection (prostatitis) or urinary tract infection. ? Certain medicines such as male hormones (like testosterone) or other medicines that raise testosterone levels. A rectal exam may be done as part of prostate cancer screening to help provide information about the size of your prostate gland. When a rectal exam is performed, it should be done after the PSA level is drawn to avoid any effect on the results. Depending on the PSA results, you may need more tests, such as: ? A physical exam to check the size of your prostate gland, if not done as part of screening. ? Blood and imaging tests. ? A procedure to remove tissue samples from your prostate gland for testing (biopsy). This is the only way to know for certain if you have prostate cancer. What are the benefits of prostate cancer screening? ? Screening can help to identify cancer at an early stage, before symptoms start and when the cancer can be treated more easily. ? There is a small chance that screening may lower your risk of dying from prostate cancer. The chance is small because prostate cancer is a slow-growing cancer, and most men with prostate cancer from a different cause. What are the risks of prostate cancer screening? The main risk of prostate cancer screening is diagnosing and treating prostate cancer that would never have caused any symptoms or problems. This is called overdiagnosisand overtreatment. PSA screening cannot tell you if your PSA is high due to cancer or a different cause. A prostate biopsy is the only procedure to diagnose prostate cancer. Even the results of a biopsy may not tell you if your cancer needs to be treated. Slow-growing prostate cancer may not need any treatment other than monitoring, so diagnosing and treating it may cause unnecessary stress or other side effects. Questions to ask your health care provider ? When should I start prostate cancer screening? ? What is my risk for prostate cancer? ? How often do I need screening? ? What type of screening tests do I need? ? How do I get my test results? ? What do my results mean? ? Do I need treatment? Where to find more information ? The [place] [employer]: www.cancer.org ? [place] [employer]: www.auanet.org Contact a health care provider if: ? You have difficulty urinating. ? You have pain when you urinate or ejaculate. ? You have blood in your urine or semen. ? You have pain in your back or in the area of your prostate. Summary ? Prostate cancer is a common type of cancer in men. The prostate gland is located below the bladder and in front of the rectum. This gland adds flu (more content not included)... [facility] Physician Referralon 023 Physician Referral [id number] .[id number]:[address] [facility] Screenson 09-04-2022 Screens [id number] .00CD:[address] [facility] Screens [id number] .[id number]:127 [facility] Urology Office/Clinic Noteon 09-04-2022 Urology Office/Clinic Note Chief Complaint elevated psa HPI Staff Evaluation requested by Dr Ester Craven due to elevated PSA. Pt is a new pt, never before seen in our office. PSA 06/07/19- 0.54 PSA 10/23/20- 0.58 PSA 12/28/21- 0.69 PSA F/T 08/20/22- 7.3 & 9.7% CT ab 04/11/22 Painful urination: no Blood in urine: no urinary frequency: no urinary urgency: no incomplete emptying: no nocturia: yes 2-3x ongoing for a long time weak stream: no post void dribbling: no urinary incontinence: yes mild intermittently before reaching the restroom. patient states mostly when he's working, he tries to hold it longer to avoid removing his work attire. History of Present Illness Tests reviewed: reviewed UA, external records including PSA I have reviewed the previous health record information and history for this patient from Dr Ester Craven, PCP I have reviewed and verified the staff HPI to be accurate for this encounter. There have been no associated fever, chills, flank pain, or blood in the urine. Review of Systems PHQ Score Initial Depression Screen Score: 0 ROS - Provider Constitutional: denies weight loss, denies hot flashes. Eyes: denies eye problems. Gastrointestinal: denies nausea, denies vomiting. Cardiovascular: denies chest pain or angina. Integumentary: no dryness Musculoskeletal: denies musculoskeletal symptoms. ENMT: denies otolaryngeal symptoms. Respiratory: no shortness of breath. Heme/Lymph: denies easy bleeding tendency, denies easy bruising tendency. Psychiatric: no confusion, no anxiety. Genitourinary: See HPI. Physical Exam Vitals & Measurements HR: 51(Peripheral) RR: 16 BP: 175/98 HT: 72 in HT: 182.88 cm WT: 84.36 kg WT: 185.592 lb BMI: 25.22 General Appearance: alert, no distress, well nourished, well developed male. Head: normocephalic . Eyes: normal orbit and globe. ENMT: normal examination of external ears. Chest: symmetric chest rise, respirations non labored. Cardiovascular: regular rate and rhythm. Abdomen: soft, non distended, no tenderness Genitourinary: Flank Pain: none. Bladder: nonpalpable. Prostate: moderately enlarged prostate, no hard nodule observed, Rt side a little higher then Lt side, non tender Skin: warm, dry, no bruising. Psychiatric: cooperative, affect appropriate for age, normal judgement, euthymic mood. Assessment/Plan 67 yo male referred for new pt evaluation of elevated PSA. CT ab / 04/11/22 - shows a fat filled ventral hernia approx 5.3 x 5.1 cm in diameter and 1.2cm in thickness protruding through a 1cm wide neck, midway between sternal xiphoid and umbilicus 1. Elevated PSA (R97.20: Elevated prostate specific antigen [PSA]) PSA 06/07/19 - 0.54 10/23/20 - 0.58 12/28/21 - 0.69 08/20/22 - 7.3 & 9.7% Testosterone 12/28/21 - 766 Pt denies any family hx of prostate cancer or contributory malignancies. Pt states he started having urinary problems a few weeks ago, it was hard to start voiding, but stopped around 08/25/22 after starting OTC prostate supplements and D-mannose. Pt states he had his most recent PSA tested around this time. Pt denies any hx of infections. Discussed potential etiologies for elevated PSA including infections, inflammation and malignancy. Risks/benefits of management options including repeating PSA level for confirmation, MRI, biomarkers, and/or biopsy. -Select MDx today -Will send an order for repeat PSA F/T in 3 wks. Educated pt to not have any sexual activity/stimulate prostate before his PSA test. -Will call pt w/ PSA results and if still elevated, will order MRI prostate. - Follow up after the above, or sooner if needed. Pt understands and agrees with plan. 2. 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 IPSS 9, QoL 3, SINDY 13 PVR 13 ml Difficulty voiding, having straining, urgency, frequency and dysuria a few wks ago. Stopped around 08/25/22 after starting D-mannose recommended by . Recently started OTC prostate supplements, improved stream and symptoms. Declines further workup/tx. -Timed voids -Bowel regimen I spent 30 minutes today with the patient: reviewing tests in preparation to see and discuss them with the patient, obtaining and reviewing external separately obtained history, documenting clinical information in the electronic health records, and care coordination. Over half the time was spent performing a medical exam and evaluation, and counseling and educating the patient, and ordering tests, procedures in caring for the patient. Follow-up With When Contact Information Kahlil JERNIGAN, Shae Powell, URL, URO In 4 weeks Additional Instructions: w/ PSA Patient Education Prostate Cancer Screening I, Marika Roberson, personally scribed for Dr. Guillory on 09/04/2022 08:37:41. . Documentation recorded by the scri (more content not included)... [facility] Comment on above: Result Comment: Elec tronically Signed By: Shae Guillory MD\.br\Date and Time Signed: 09/04/22 21:05 EDT\.br\Electronically Co-Signed By: Marika Roberson\.br\Date and Time Co-Signed: 09/04/22 08:38 EDT Lab Reportson 09-01-2022 Lab Reports [id number] .[id number]:127 [facility] Physician Referralon 023 Physician Referral [id number] .00CD:127 [facility] Provider Letter FTMCon 06-[address] [facility] June 03, 2022 BRADEN PAYNE [address] [place] [id number] BRADEN PAYNE 1955 To Whom It May Concern, The above named person may return to work without restrictions 06/03/22. Sincerely, Dr. Camryn Snell MD General Surgery [facility] Ambulatory Visit Summaryon 0 05-21-2022 Ambulatory Visit Summary BRADEN PAYNE :1955 MRN:[id number] Visit Date:05/21/2022 Ambulatory Visit Instructions Your Diagnosis Incarcerated epigastric hernia Your Care Team Attending Physician - Camryn SNELL MD Primary Care Physician - Ester Craven MD This Is Your Medications List Contact prescribing physician if questions or concerns Fish Oil Turmeric (turmeric 500 mg oral capsule) acetaminophen-hydroco done (acetaminophen-hydroc odone 300 mg-5 mg oral tablet) carvedilol (carvedilol 25 mg Tab) magnesium oxide (magnesium oxide 400 mg Tab) multivitamin with minerals (Celebrate Multivitamin) tizanidine (tiZANidine 4 mg Tab) Procedures Performed Laparoscopic repair of obstructed ventral hernia (04/29/2022), Back (03/10/2012), Back (1999), Cholecystectomy (03/10/1993), Excision of lesion of skin, Laminectomy. What to do next You Need to Schedule the Following Appointments Follow Up with VAMSI JERNIGAN, Camryn Rodriguez, OJ When: Only if needed Where: [address] [place] [address]- Medications What How Much When Instructions Unchanged acetaminophen-hydroco done (acetaminophen-hydroc odone 300 mg-5 mg oral tablet) 1 Tablets By Mouth Every 8 hours as needed for as needed for pain Contact prescribing physician if questions or concerns Unchanged carvedilol (carvedilol 25 mg Tab) 1 Tablets By Mouth 2 times a day Contact prescribing physician if questions or concerns Unchanged Fish Oil 1 cap By Mouth Every day Contact prescribing physician if questions or concerns Unchanged magnesium oxide (magnesium oxide 400 mg Tab) 1 Tablets By Mouth Every day Contact prescribing physician if questions or concerns Unchanged multivitamin with minerals (Celebrate Multivitamin) 1 Tablets By Mouth Every day Contact prescribing physician if questions or concerns Unchanged tizanidine (tiZANidine 4 mg Tab) 2 Tablets By Mouth At bedtime Contact prescribing physician if questions or concerns Unchanged Turmeric (turmeric 500 mg oral capsule) 1 Capsules By Mouth Every day Contact prescribing physician if questions or concerns Allergies penicillin (Rash) Problems Ongoing - Any problem that you are currently receiving treatment for. 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 Denies pain, no use of pain medication. Denies bleeding or drainage. Bowels moving well. Not wearing abdominal binder. History of Present Illness 3 weeks s/p primary repair of epigastric hernia; doing well, denies pain; no N/V; no drainage from incision. no pain meds. Review of Systems ROS - Provider Constitutional: no fever, no sweats, no weight loss. Eyes: no glasses, no blurred vision, no visual loss. ENMT: no dentures, no hoarseness, no swallowing difficulties, no hearing loss, no ear infection(s), no nose bleeds. Cardiovascular: normal blood pressure, no chest pain, regular heartbeat, no heart murmur. Respiratory: no shortness of breath, no cough, no asthma, no wheezing. Gastrointestinal: no nausea, no vomiting, no diarrhea, no constipation, no blood in stool, no change in bowel habits, no abdominal pain, no hepatitis. Genitourinary: no kidney stones, no urine infection, no dysuria. Musculoskeletal: no pain, no weakness. Skin: no changing moles, no rash, no skin lumps. Neurologic: no seizures, no epilepsy, no headache. Psychiatric: no emotional or psychiatric problem. Heme/Lymph: no bleeding problems, no anemia, no blood clots, no transfusions. Allergy/Immunologic: no swollen lymph nodes/glands, no IV drug abuse. Other: Additional ROS info: Except as noted in the above Review of Systems and in the History of Present Illness, all other systems have been reviewed and are negative or noncontributory. Physical Exam abd: soft, nontender, nondistended, incision healing well, no drainage, minimal erythema around left lateral suture knot; no drainage, no induration, no seroma. Assessment/Plan 1. Incarcerated epigastric hernia (K43.6: Other and unspecified ventral hernia with obstruction, without gangrene) doing well, suture knot removed, keep area clean and dry; in 1 week, gradually resume regular activities; call with problems/questions. 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 Medications acetaminophen-hydroco done 300 mg-5 mg oral tablet, 1 tab(s), Oral, q8hr, PRN carvedilol 25 mg Tab, 25 mg= 1 tab(s), Oral, BID Celebrate Multivitamin, 1 tab(s), Oral, Daily Fish Oil, 1 cap, Oral, Daily magnesium oxide 400 mg Tab, 400 mg= 1 tab(s), Oral, Daily tiZANidine 4 mg Tab, 8 mg= 2 tab(s), Oral, Bedtime turmeric 500 mg oral capsule, 500 mg= 1 cap(s), Oral, Daily Allergies penicillin (Rash) Social History Alcohol - Denies Alcohol Use, 05/27/2019 Substance Abuse - Denies Substance Abuse, 05/27/2019 Tobacco - Denies Tobacco Use, 04/22/2022 Never (less than 100 in lifetime) Tobacco Use:. Never Smokeless Tobacco Use:., 04/03/2022 Family History Breast cancer: Brother. Diabetes mellitus type 2: Father. Hypertension: Mother and Father. Melanoma: Father and Brother. Primary malignant neoplasm of skin: Father. Immunizations Vaccine Date Status Comments influenza virus vaccine, inactivated - Not Given Patient Refuses SARS-CoV-2 (COVID-19) mRNA BNT-162b2 vax 12/29/2020 Recorded SARS-CoV-2 (COVID-19) mRNA BNT-162b2 vax 06/09/2020 Recorded SARS-CoV-2 (COVID-19) mRNA BNT-162b2 vax 05/19/2020 Recorded 2022-03-29: TPV60 influenza virus vaccine, live, trivalent - Not Given Patient Refuses Normal [facility] Comment on above: Result Comment: Elec tronically Signed By: VAMSI JERNIGAN, Camryn Baker\Date and Time Signed: 05/21/22 15:01 EDT Coding Summary.on 05-15-2022 Coding Summary. [id number] G h0bWw+PGhlYWQ+RX0OUOX pF00ybOAljK2yR2QJWQrN SywgQVBQTElOSyIgbmFtZ M7mbPFtDRDz IC8+SN1gDUFmDyggbNGsb 7C4rCX2L69hdg7kBKahiV Y6FLWaLcRtgczgh7riuVv 6IDcuNmluOyBt YPJijU56ZVG0pA83Ic70n QFbbNJpl5jwnSl7PrXiOW KtWPO4mQrhCGeiq6KmRAH lL25llPWty5M5 APXlwGkknLQkWjFpuFC4d Z7qQDrhybppp4dfijjtNm x2bb97wILje9L7tHL9F1I ukcQ1ADDgpKOl EtiqkYGFsC1gcwddp9ryp hasOvSkDMOpAJi9JXg5NP PgnYvuYoNiVY27DAX7HXQ khjIiG3TbDZTm iOcePrY2s9P7Zx5RY4SMK lvkM8QMZXCNCVgykIW+PC 90bf99H8PoGwykZbp5LUP pPYK8wYY4uT3y RLOmBBerh4D6iEU7G6Sin qBjzj1ax8qzUENoIOhzW2 3zkIYxs8X3OIXqyIS5DGW jhWujOyEhuS19 Oyc+QCRooWqpv5QzFxlre 7wkx2aceHk7TvruDQZslb GxnAtjRZF5j9BkUk0uWXO fuDU6nPA5qU8h LtAqPdJ3IUsmL151ChVfp MBtRcqwG77bF7EwwSH+PH TzYhg9BWTbgZdkLM6aZ0U hZGRpbmctbGVm dTcyCL0sIYZuysrwWCGrg K0qHYIsG9i5EsBbNgT9RQ zfT2AlXSCrgihbBz00sY5 kLxOsAqW6LMmi D6CztsF8EJQpwGXrSZslU NW9S73iv8T6DIDtGPCwBL F7aYH5rO4jiPtqvaqtyEA mdDsgdmVydGlj WBteTSwjP087BOIcyHquP kNvZGluZyBEYXRlOiAgMD MvMDgvMjAyMzwvdGQ+PHR yESB2gToaNEFw bGXqYKzbLy4oqMjpzAnuJ Y0wFRPxmikpCYIfuX2vQP YvcPKspAphVW7sQORfixp lc697EbDyZYN4 PHIgqQNtG6LwfS3rDeNrZ PIdGUWjA0TksIXgNYdoC4 19YOeuNxX5AKRfhcJmA1C sLWFsaWduOiB0 c8M6So3Nb2ZkkvbeB2Bkv EFcSlYnKhvyZWj9E1UgAt wvdHI+LS45SXQgTP73QBh 5QKX1uYtlMOwx YGRuT8JbiV0kWpIrZROyS GRkOyc+PHRhYmxlIHdpZH RoPScxMDAlJyBzdHlsZT0 eYt1dGVOoMNUm kLxhcHZqJtStj2buWHSmY MjmMQ0mtAteS3WzbMV4BW Bia2a5Lq31J82lH4CpbMD +KDVwdAW0tTG6 lO3bZtQhRaK7QPgrH881D sGhsVRaNmxgu1ysm1sqcP b9KnO7JAKqkgHalEksGQM 8s8YbBf55K88b IHdpZHRoPSIxNSUiIHZhb Zjdiu2ahK8jAh4+PGNvbC L8bRC5sK6dRuVoCpI6AWp jM373EyGqgKRi Rlbxf2esj8epdVb3GzOeK BPzqaOjnGycJBC8i2TjFe 26H3DbgMifg3CnVwu7mx0 1hUFze6I5jML6 F2PwREErcdakyEBtcJltO S1sNIOolnfyBQPcsJ3fCD GwA1c3IeJcJtA5AEgcO2X xrkL5QYVleOYd SRJjvEILkQ0dejydt4xoe aaaWtRuBZLgOVp7PIl7GQ MomHinExNxZGQ2UoR4VNX 0pXAnvA8haAgn jntguM6mNyt+WWJ7hVCpu JUVTU1xCzbcuYM+PHRkIH P7dNwbDFjkHVYxqJ7ySLJ yC0q6SnKzDdU9 RPakU8AkvjT5IJBprQAzM TDjvENFiP2ttdaoz5rlxv kaVrDwSOKdTXp3POt4NBR saWduOiBsZWZ0 FjO3DHM5xEGvaC2fhMadw xtowQ7hHeg+QmlydGggRG A1TPj5N5GeYcq8SRReeZp hHP6nmLDcVTgl De3zzUiwaVwlFV6wXVBhh jlun361GqIdx4lqKDToxC ArNCzkQAM0Q44fz6F9LLC xFJKvDOW3yDH8 nJ0qaRwksgtsaBApoPntv tSjzDjhRSdnZCejN803LV KndSreZbIbLWw1B1FxEpr 5XDUvcGhfJS0c zGLvWIlsGg2fxFxjuJggF O5iWCLfyvunc600QzEcq4 kvNTUymSBgGCieGCW5H94 zg1M4CDZbPXCi YAS4hGR0mI5lyTpnlrila GVmdDsgdmVydGljYWwtYW ymZ421SCRdiQtzCyMdhJl 8F4GxRox5SCFh gEpoVF8wkOCpHPtuRt5fh TlarDrsWQ7dDCOqtqisz3 38XtPwc5urTOSezDXkPBg fHDP5V57uy2K7 STPuVPKwNCH2qCT8bM5ui GlnbjogbGVmdDsgdmVydG xdEDtiOYmtX683DDOvoPq nPlBhdGllbnQg WImvACz5N6AqZxyheJL+P G99PGCwHN75eBOfeWKul9 nwiLf4NrAvECXqYMZ7kUq dDBblp1AnZXQa Z09qqYBqc3R8JCSodOxtx MYuXvVwhIC9eM8kRSrpju mpr0trysxuMiybl7gxmm7 8cF65N98oSYsx ZHRoPSIzMCUiIHZhbGlnb b5acL2sPc1+TQCwbPM7yL Y4qQ4yXFGiKuV7RWrsT52 9InRvcCIvPjxj b7nyx0efhYr2GjU5ZRNgx dMjsIooCXU0t2UuFx49X8 9sIHdpZHRoPSIyMCUiIHZ daRwjqf0ktW4x Ii8+SFZrmYO7cRN0xP8mV kZlJjO7TYolS837YeLgnE FaLhxhV63oF3MtpCJ+PHR gCvp3JSJfwDen MI2abSKsZXqhMi6qGPI3Q xWgMqPxLRnsE2KzGCCbbw zazfseqTJ0YGAfRCJdzA2 0Hq1pnOwnPKSa oLEEiR2xnikro7eyeuwlJ bDtPWZnNBh4AGr8QTSugN qrOzQeGGU5TkR7QSV8mET yfM2ijXvwjhmm wQ0mR5VmAXOtnbumGr55a M0pMdOdXbX3MZljFey+T0 xJVkVSLCBSSUNIQVJEIEw 8T4IeDjl3ZHMv lPywPO8zaIQwHKmbEo5xe VrqpZcoBR3hXNGjfmrsQB TvzT3zZJIhoOXglBnjFG0 lNGBqlhyyv907 KmLiOOG0WOThrJAtE9Kxh A7pYbHjRCPhVIYqH3CjxT LdSYrnA450DCdqDkG8KMZ mrrSaU9VvUQCj gNouJxY5a6U0Zb2iTA9pT d6gYUL4NO09IS75gYJbg3 S6rTL1J7KnCRMrlobmokb rnUH5BAQhQQTb vL65vWIhBNogFr0pf3P4w 627UUFlKQTloH98Bb6piE pdXXBbwHHRnE5wgkjzc7b vcjogIzAwMDAw GLn3YIq0NCKaiFrqMhAaW MQ0IzL9BYQ2mLXcbM6ruV apnoxvfU6dZve+NjUgWWV blyO8Q1NlPrp6 MKCmnOomHC2xmWBgIEyyJ o1mjPhrqYpjME9mHKOjpr bfGJXrsL1aYNAfbOXtgCm gNO9zYRRlgama c218NpAzMWN0WDVorRVlW 8WowY1fJyMaIQCtJNOnL6 AxhSOvRYapW207HMidQbR 9VEIrqzNyX6Bj JNJrmKpmFvX0z5C0Nq2CZ DgjTD99XH20iNApd3J4jM A7B2MoYNWpulwhjypboDN 7OPKnMTCcdG42 dCRdCShvZh3nq6N5y472J YQiSHQwpL35Zv2ktHouBN AegXRQwC4fpsmkh5cwpln gIzAwMDAwMDt0 RTt9RFTenIqiFvPnCUF4Z gB5XCI3yMCxcW2dbWjvjo fluM2mTjn+C8R5jGY2vBN udDwvdGQ+PC90 al63A5XcHyqmPmz3RALcE RM3dTV2vF9tDUSeXQles1 O2jPO1L0BvulEliq0xe3j sUPGeWPopF81k aUEis2R7UGUbfJP8HMXau EuaGaBbhC63Bpc+PGNvbG tmi5OyLqdrh5gdh4nvqUv 9IjMwJSIgdmFs qMkiMTN1o6XaUu15Y64iM HdpZHRoPSIzMCUiIHZhbG unph4ysK5jOi8+PGNvbCB 5kGS8tB8vRpJi AoW3EZwdX767DxAcdPHmX qhwm7efj6oqvPe9ZfFaER AabxGgkOzmQDI0g7CuDz5 6O1HpuXrar0Ws Bro8qo66oSAns3W0qZC0J 3BhZGRpbmctbGVmdDogMC 6sXIJqlodiHDHuvP6jWSP eV3g0MbZdGeD7 FCmkK9NxfzW8AQKyxZTrD FEmiQHMrQ4fkxzic1nqwg chPoHyKJKfMTw1WDp0LFX saWduOiBsZWZ0 OmH0OGP6dORgzM6axFool jllqW3zAnj+XId6a1iugO VdAT5neZH5XR56EQ70rEG do9L4zDS8S2Ao CXWnxravpbsfhPE2SCJcY ESubP71Cg9mdSkbFm4yEP XkZHT3IZUylGBuE5LgeE6 yOiAjMDAwMDAw Y4HfkRHxACyqR045BKxfJ mS2KAGtvjCvN6HvXIYetX aeFtK7d3E4Oj3HYG76NI3 3RI21zKMfr9O3 dKN1G7HsNIQazsrruieie JF7XBHvOQQeaJ58Kf1rbH qaIs8hFZRiIWG6LTWphEX eI3NexM3kBkDf SOUkJVNwT2GcbYUvIBehN 277ADmgPfD4IHNctuUxK1 DeGTCkuEohEkA9x9V1Tb4 AKz60AH90MT49 mPYrs8I5vDQ5S2MfIHXma fgsbjffqKN4PZEcLVWjrE 05Gr3ejWvgPp8lXFAdWFM 1SUSpyRUbJ5Aq oW3tJxYaSZBvBXAcT1Wma ZLnTWqmT351RNlyXwL5AT TuqjKeO2QiOCPilJgsWkK 4v4O2Br3QQRvt ycr6B5TsYusgqFP+PC90Y EIyAC78bWJboLVlg2asdX k4SoWzLYMiLFS2qRdrEPs ww3VxAWPmL90x bGFw (more content not included)... [facility] Physician Orderon 05-14-2022 Physician Order [id number]#1 .00CD:127 [facility] Formson 05-10-2022 Forms [id number]#1 .00CD:127 [facility] Ambulatory Visit Summaryon 0 05-07-2022 Ambulatory Visit Summary BRADEN PAYNE Lew :1955 Visit Date:05/07/2022 Ambulatory Visit Instructions Your Diagnosis Incarcerated epigastric hernia Your Care Team Attending Physician - VAMSI JERNIGAN, Camryn Rodriguez Primary Care Physician - Ester Craven MD This Is Your Medications List Contact prescribing physician if questions or concerns Fish Oil Turmeric (turmeric 500 mg oral capsule) acetaminophen-hydroco done (acetaminophen-hydroc odone 300 mg-5 mg oral tablet) carvedilol (carvedilol 25 mg Tab) magnesium oxide (magnesium oxide 400 mg Tab) multivitamin with minerals (Celebrate Multivitamin) tizanidine (tiZANidine 4 mg Tab) Procedures Performed Laparoscopic repair of obstructed ventral hernia (04/29/2022), Back (03/10/2012), Back (1999), Cholecystectomy (03/10/1993), Excision of lesion of skin, Laminectomy. What to do next Scheduled Follow-Up Appointments Friday. 2022 2:40 PM EDT With: Camryn SNELL MD Where: General Surgery [facility]Lois [facility] General Surgery Office/Clini c Noteon 05-07-2022 General Surgery Office/Clinic Note Chief Complaint post operative follow up HPI Staff 8 day post operative follow up post incarcerated incisional hernia repair. Minimal discomfort, taking Ibuprofen 600-800mg TID. Denies bleeding or drainage. Bowels moving well. History of Present Illness 8 days s/p primary repair of incarcerated incisional subxiphoid hernia; doing well, mild soreness; no N/V; no drainage from incision; only taking ibuprofen for pain; normal bms; not wearing abd binder. no strenuous activities. Review of Systems ROS - Provider Constitutional: no fever, no sweats, no weight loss. Eyes: no glasses, no blurred vision, no visual loss. ENMT: no dentures, no hoarseness, no swallowing difficulties, no hearing loss, no ear infection(s), no nose bleeds. Cardiovascular: normal blood pressure, no chest pain, regular heartbeat, no heart murmur. Respiratory: no shortness of breath, no cough, no asthma, no wheezing. Gastrointestinal: no nausea, no vomiting, no diarrhea, no constipation, no blood in stool, no change in bowel habits, no abdominal pain, no hepatitis. Genitourinary: no kidney stones, no urine infection, no dysuria. Musculoskeletal: no pain, no weakness. Skin: no changing moles, no rash, no skin lumps. Neurologic: no seizures, no epilepsy, no headache. Psychiatric: no emotional or psychiatric problem. Heme/Lymph: no bleeding problems, no anemia, no blood clots, no transfusions. Allergy/Immunologic: no swollen lymph nodes/glands, no IV drug abuse. Other: Additional ROS info: Except as noted in the above Review of Systems and in the History of Present Illness, all other systems have been reviewed and are negative or noncontributory. Physical Exam abd: soft, normal bs, nontender, nondistended; incision without erythema or drainage, no ecchymoses; glue intact. Assessment/Plan 1. Incarcerated epigastric hernia (K43.6: Other and unspecified ventral hernia with obstruction, without gangrene) doing well; wear abd binder when up; no lifting > 10 lbs for 3 weeks; follow up in 2 weeks; call sooner if problems/questions. 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 Medications acetaminophen-hydroco done 300 mg-5 mg oral tablet, 1 tab(s), Oral, q8hr, PRN carvedilol 25 mg Tab, 25 mg= 1 tab(s), Oral, BID Celebrate Multivitamin, 1 tab(s), Oral, Daily Fish Oil, 1 cap, Oral, Daily magnesium oxide 400 mg Tab, 400 mg= 1 tab(s), Oral, Daily tiZANidine 4 mg Tab, 8 mg= 2 tab(s), Oral, Bedtime turmeric 500 mg oral capsule, 500 mg= 1 cap(s), Oral, Daily Allergies penicillin (Rash) Social History Alcohol - Denies Alcohol Use, 05/27/2019 Substance Abuse - Denies Substance Abuse, 05/27/2019 Tobacco - Denies Tobacco Use, 04/22/2022 Never (less than 100 in lifetime) Tobacco Use:. Never Smokeless Tobacco Use:., 04/03/2022 Family History Breast cancer: Brother. Diabetes mellitus type 2: Father. Hypertension: Mother and Father. Melanoma: Father and Brother. Primary malignant neoplasm of skin: Father. Immunizations Vaccine Date Status Comments influenza virus vaccine, inactivated - Not Given Patient Refuses SARS-CoV-2 (COVID-19) mRNA BNT-162b2 vax 12/29/2020 Recorded SARS-CoV-2 (COVID-19) mRNA BNT-162b2 vax 06/09/2020 Recorded SARS-CoV-2 (COVID-19) mRNA BNT-162b2 vax 05/19/2020 Recorded 2022-03-29: TPV60 influenza virus vaccine, live, trivalent - Not Given Patient Refuses Normal [facility] Comment on above: Result Comment: Elec tronically Signed By: VAMSI JERNIGAN, Camryn Baker\Date and Time Signed: 05/07/22 15:22 EST IntraOperative Documentson 0 05-03-2022 IntraOperative Documents [id number]# 1.00CD:[address] [facility] IntraOperative Documents [id number]# 1.00CD:[address] [facility] Coding Summary.on 05-01-2022 Coding Summary. CD:[id number] G h0bWw+PGhlYWQ+WU2FSJS cU79ghSVktR3OW8qGLI7P OAOHZSBVJM4PCX7flHM5Z XcsM7VfxaBe ZtifwCSlKZ48NAp1WZF5g SgdKKtaiM1bxTSqL9n4Np BmUJ02bJ09RMszAAGdGrT 3LjZpbjsgbWFy S9vnMrHiwOGmMan+PHRhY mxlIHdpZHRoPScxMDAlJy IdjJugXX7kEv0mOGUaHTD vbGxhcHNlOiBj l6qmOXWnGIclSB4naFlqX 7WyfYT4LBBmr3q4Lx57xZ I+FWCvEFN8rOizIPvfe26 3PjKbb7nzDUY0 fVPiFOkwYLI1Z54mb0O1D HDrXADeVIC8rQM1wV7sqZ xjhyuiB7KpbOMcWrZ6FBV 0fOEqfW8paFwz gvgzfT8aZma+P98WKC0PV LDCCA6ADxj3T6MlKtajqB I+SJ03ZJKaFX73dYSthMT ph0iflGy4LkNh OGNbEVR6lWmmCTgjc8CpY FVzJ32zyAIrd7L0ZXBhaY lbtXXrNfLjuWR0nP4rPFy ewjrac7kodifc Crema8uvrw29gR18K49vH KboYUDyHCK7YKTbYYOnuI ccqh6bhO4aBm3+ZEptn7o id2kleQy0HgWy VAJpcdNpdViqCIE6c7JkK i34X4FpcYnoo9JmZxc1wv 02uFHqq4R6sTL4JMhlNDY joW3hIVvnHlT1 IWRdUrFvzW80gKXyAXthI s0puQqwdBctRD3aIHUnwi upEUHcvP4wJOZjjIPxbQg zNF7oMOJzjxuj a062EeWpDTY7FLLtaOWbG 6TebF6xQqToCCXwYMMhJ3 ClrKFaCHraV424FCsiRqI 8PIMbixHfZ2Zo CSCobRzoJxV3p1C7Kt3Bw 5DittzlRYI1GWsyWOKwBy KpXyLnCjQ0D3ClYjd7MQI toRdpII7lF3Hx OMZgeomzhjxfhYZ7RTSjW GEqmD81iZVfSDruXq6ma9 U3r892HKUzMNWbpI34Tn6 udDogMTBwdCBU dK6oqvzus2ycwyanApDhL INcXZa4XHc6VRCwjWufRt XkMFP4EkF4LUF2yNDopI6 zgWjrjlheeW8m Oyc+P27apB5nYNB3AAK4a qnyIWUrvyVwBI33OF25H1 RyPjwvdGFibGU+PGRpdiB maKeaJV3fWgBg g4lte7AuYGehY0ZtIPJvC RshQfh5GZKoWFG4sPS2jL 2kKJPjSYurd8Y7oNL9E8H seoGebx2jl3jf IYPpGThsE66vcDHbx2Y9O MRawHL4BWKtzSogUrNzkV 93Oyc+HBAktOrkq8XgJcj sm8qal4tpzBz4 PqRlCSAaxsMonCyzRQF9p 3EsYs70Q85mBGgpTJHzCW IqPKIgLEQnkUicvx8lbC6 wIi8+PGNvbCB3 kFI3dV0vCOXkYgO3NDqlC 115OwSwdCNlVkhvq1hra1 zqzLp6IcVrPOQdwcGriSe uEVC6w4DjZq23 H58xIYmsYJKkAAWfXMSxW UQwvEstyu9mzY4sXp4+PC 0gs7tzyd00wP03hJK+PHR zZWW8gYwdWGzz GFAvrO6rMMldSeW5RDYhV tDfoW20vUUbILcaTz3jkW thxLanZX6aYVGyjeckh73 3MdJmc7bsPMHn cANhLTldZBK4K37sd3Z4Z DBeECOwQBH9cEM0vH6lbH lnbjogbGVmdDsgdmVydGl jAKnmXSweJ813 IHRvcDsnPlBhdGllbnQgT oZaYQh8L0NgTsf3JNNmwD kcUM0ixUKjFArnKq4qnAv ovGltRS7pSPLm wggqn615XzKys9slXHWpd ZGxCHqgNJE1R88du9C7CY ApSVVeWJT0qER8kA8hvEm nbjogbGVmdDsg xaYfjLfvFZcrKMsaC054P HRvcDsnPkJpcnRoIERhdG N6DU93CI53sVNil2V4iDM 7X1SdOUHfyvhe padawGC9FESwCVNkaP73J p8dgZveBw2cPXSnXRH9AV GbcSCnS9BtbJ4qCxDhJMD cZBOgC2MonMIj PKnbD410LSivQfE6TMEfl xVeX1HiNHGumIqqRpX8f4 A5Ci6XC3L2AC15GH10rHD uc2O7eCF4C9Ul XMNppqgkccynmGC0HMBmS BLjkN80Cf4ivDchTt0qGC HeDRQ2KZUijUErW2GrzF9 yOiAjMDAwMDAw A2ZoqPIqNTauK679JCcsX rU1MMRannGmS7NqTVFuqW xtFoI1l2B3Ut9ILTy4OA1 6VG85aTIcb8P4 vGP4O7LzSYTptexfrsihp VE3YCXgGQIpfJ61Uf4iuX qpBp6tASPnKNY6XVKwpZT bY2FdkA6yPaPj VXZlLVHaH0IcvVMmQWbmI 309ZSlvQzG2AXUuarXgB9 OcVUEruSljPkC6a7Q5Cj1 ZXHRqNL16SAW3 qIA5II06YR01P3ZaCancn GFibGU+PHRhYmxlIHdpZH RoPScxMDAlJyBzdHlsZT0 yCt2pULVlRYGo oJwnyBWlOxCam3qoNKSiX TkhFR3qaGbdK5JelVJ8XB Lho5k5Tq80I61zI6ZbuAK +WZFdjAL1nOO4 iI5wGgFsWdQ0IPeaF742C nEhtHCuUqlyl3jzv5inlT y0RbN3ALPosdJqoZfrSJQ 7i4AzXv69S82z IHdpZHRoPSIxNSUiIHZhb Cenyf1puS5cPe3+PGNvbC O3pDU4nZ2eUtCgLpK8ADk sW029DmSocPXt Vynjq3omp4kwlAt3LiZfZ VLsdjJfcEqoABS4s8WkXa 08P2HnmKykt4ShHvt2yz7 4jRPas8J0wEH1 U6HcYCNmsyoatPZnhLgjK J9hGGMgicwcQYZlqP7eBA NnR1e6ClUaBeI8UGgdM3D yqcU7WCMqqGZn WNerDWX2I49zd7A4DTYcS QHbIHR4jLL6sP8xxMhyxg ogbGVmdDsgdmVydGljYWw oINilC532UBCz fKxrJAAipP0yOENvdBCut UhtDC7tNZQqnsjeLi9SOL ZFUiwgUklDSEFSRCBMPC9 1BT87xYGpa2D5 eUX4O4BjKOBxlpchjcbkz XR2DNJlRQIddC31wTWvOT gyOx1lb2H8t168TVGdGBZ gfL09Ac7ukFfl YMTtrRSWyP8exlcpf2mju bnsSjAzTMXjSPu8USr6EV FzzMqyPnVqBGV7XrR5ZXF 5aOGizG6siCib fsgosI8jEbm+MDEvMDMvM Wt2TQyvyDJ+EAIlJHA8kI sxKMlkXTNmfB9gULHiV9h 2DaZyXnU8VMbw L1GyDDRerocaCo20iQ7fP dXwMtQ0KTghJ5InshT9DR MbgLQlVTcgWOR3B91hh7I 2JCEsNJCcCXG8 cME3yJ7ntPrqzxghrLAsp DsgdmVydGljYWwtYWxpZ2 34AYKboKpbBiH2DPmlCEH tMB85EH21oVVw q8X9nTQ4T7JsWQXcfzrvn tzyhDQ0NLUlJIBmrD41uO WqEWueSx5wm6C3h828OYA aIVBiiO77Gk0h dIexZKGprDWSxM3jfvouq 4fpokfkMvAwKJWpVMx1NW k4ICZypDdcFtRsQBO8FbC 4TZO4nBNplZ8y oKxydlmkrC3fKnw+TWFsZ TwvdGQ+QDKsSUX9jQlcWJ cdXKZhqX3gNBDdJ5h7HeN bNbU8DTzlH7Ia EDXhlfclDc08oA8wZbVfY iU8CYnbC4RnhdN7FIHmzQ BsCFbcFUZ7O61qu2L1RHE qLGLpKQN6pBI9 aC8xjOtxeuemsLBuzOzdy zPolYgzLNuhYGicA657GR RvcDsnPkFtYnVsYXRvcnk nM4XmRNDEGPul G2JxO9EshDlmfPJ+PC90c n32H1WnLohfJef2HHDdYO Q3rVN3tR1cJCExAOivg6J 2fNO9F7MgwiZj hk2cg0ilUOAvPGibY30az DCsr7O1VFEtcQL2SOSoaU zxZaXjiA69Lel+PGNvbGd pd2BbQgxes3qg m1szqTs9ScRxHTTumxObn WvvGBQ4k9IyHi26V68tSV dpZHRoPSIzMCUiIHZhbGl zff6ohT2mDg7+ QHRwiEB8vHB7eM5jPyXrS sH6DJksC308KlKwoHIsWu zlb2eso6rjqTn1GaRcSVF gdmFsaWduPSJ0 u6JlKh82C8HhrLupr2BnF sj4mx14qQRch5L2rMS8S5 BhZGRpbmctbGVmdDogMC4 yMDBpbjtwYWRk tY1eEOUvX2n1DbUqOnU4W TyeB2AnwuH3VUSnsDYiRY BgaZHLwT8aperzc7twfgc gIzAwMDAwMDt0 MBn5YEEfxRjcKdYyAOX4N yU3REI5oMPmfH8acXqjya vgiU6cEtk+BWx4q7azyUV gDK6gqZP1NG16 YB91tHOuq6I5uGV6F6StU WSanrlasghrfHJ8GVSuOA DsnT19Xg1soHngTk4bTNE iKZU6JXNrtPKg M9CvlP0oNhHqKVXpITLzA 0UtsUMkSJblP188CKdrQm O5QDOpqxWzD9QaMQLrfUd nFjH9x5Y1Kk7K LN99YY76RA08bTCqy2C9d PP8V8YzKNZxullffxaxyL K3ZVUxLKBneW68At4owJt jRq5gBJFaQFA3 MFZlwJDbF4VcaA0iJlNaF VJoWVJiG9NjuPSdHMxpK5 71JJleMoV8IPXjknZqR7D sLWFsaWduOiB0 c7I8Ds1NLo98QG47EX27p RJwm4L7aSI2C7LxYROyuf imgojbxOK9BHPzTNZdeQ7 7Nk0doIyaQe0d XYIlPQE9OOWajWOlT4Iwt K7bYzFkISFtJCZeN6KgiX EzFWobR048TLuhSjL1JHX xbqBxL2IwGAWc qSjqZtQ6v7C1Za8ZOKhhx hh7C8XfRdaehNJ+PC90YW VbWW57cYXxfCTgg6zaqUg 8GtUoNKPmZJI2 eWxl (more content not included)... Normal [facility] Progress Note-Physicianon Progress Note-Physician Patient: BRADEN PAYNE Age: 67 years Sex: Male : 1955 Associated Diagnoses: None Author: Rich Abreu MD Postoperative Information Postoperative disposition: Postoperative disposition: To PACU. Optimetrix number: Optimetrix number [id number]. Anesthetic utilized: General. Special techniques: Warming device. Health Status Problem list: All Problems BMI 26.0-26.9,adult / SNOMED CT 6465611469 / Confirmed Diverticulosis / SNOMED CT 4448866713 / Confirmed Epigastric pain / SNOMED CT 815527039 / Confirmed Hernia, epigastric / SNOMED CT 369304835 / Confirmed Hypertension / SNOMED CT 0081452940 / Confirmed Incarcerated epigastric hernia / SNOMED CT 369593569 / Confirmed Inflamed skin tag / SNOMED CT 320756976 / Confirmed Internal hemorrhoid / SNOMED CT 061004112 / Confirmed Intradermal nevus / SNOMED CT 079330458 / Confirmed Lumbar radiculopathy / SNOMED CT 496365353 / Confirmed Lumbar spondylosis / SNOMED CT 072837880 / Confirmed Neoplasm of uncertain behavior of skin / SNOMED CT 963877979 / Confirmed Screening for malignant neoplasm of colon / SNOMED CT 237431991 / Confirmed Seborrheic keratosis / SNOMED CT 4769834169 / Confirmed Seborrheic keratosis, inflamed / SNOMED CT 4017747129 / Confirmed 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 General: Awake, Alert, Appropriate. Respiratory: Adequate air exchange. Cardiovascular: Stable. Neurological: Normal sensory function, Normal motor function. Assessment Anesthetic outcome No anesthetic complications noted. Adequate pain relief. Review / Management Condition: Stable. Plan Transfer/Discharge: Transfer/Discharge Discharge when meets criteria ( From PACU to Ambulatory Surgery Unit, and To home ). Normal [facility] Comment on above: Result Comment: Elec tronically Signed By: Brady JERNIGAN, Rich Aviles.br\Date and Time Signed: 05/01/22 14:10 EST Consent for Anesthesiaon Consent for Anesthesia [id number]# 1.00CD:[address] [facility] Discharge Instructionson Discharge Instructions [id number]# 1.00CD:127 [facility] IntraOperative Documentson 0 04-30-2022 IntraOperative Documents [id number]# 1.00CD:[address] [facility] Main OR Intraoperative Recor don 04-30-2022 Main OR Intraoperative Record IntraOp Document Type FT Summary Primary Physician: Camryn SNELL MD Finalized Date/Time: 04/30/22 14:38:14 Pt. Name: BRADEN PAYNE Lew JeronimoB./Sex: 1955 Male Med Rec #: [id number] Physician: Camryn SNELL MD Financial #: [id number] Pt. Type: A Room/Bed: [place] [address] Admit/Disch: 04/29/22 06:06:35 - 04/29/22 11:30:00 Institution: Case Times FT Entry 1 Patient Times In Room 04/29/22 08:43:00 Out Room 04/29/22 09:34:00 Procedure Times Start 04/29/22 08:58:00 Stop 04/29/22 09:32:00 Anesthesia Times Start 04/29/22 08:43:00 Stop 04/29/22 09:34:00 Last Modified By: June Rowell RN 04/29/22 09:34:44 General Comments: 04/30/22 Chart opened to review and send charges LRoth CSFA Case Attendance FT Entry 1 Entry 2 Entry 3 Case Attendee Robert WIATE, Francis SNELL MD, Camryn Mccann RN, Eugenia Peña Role Performed AIR QUALITY INSTRUMENT SPECIALIST Surgeon - Primary TOLL TRANSMISSION WORKER Time In 04/29/22 08:43:00 04/29/22 08:43:00 04/29/22 08:43:00 Time Out 04/29/22 09:34:00 04/29/22 09:34:00 04/29/22 09:34:00 Procedure HERNIA REPAIR VENTRAL HERNIA REPAIR VENTRAL HERNIA REPAIR VENTRAL ADULT(.) ADULT(.) ADULT(.) Comments Dr. Mendez supervising Last Modified By: Lelia GOMEZ, June Rowell RN, June Pinto RN 04/29/22 09:34:47 04/29/22 09:34:47 04/29/22 09:34:47 Entry 4 Entry 5 Entry 6 Case Attendee Lelia GOMEZ, June Alan RN, Anastacia Votino, Zhang A Martina P Role Performed Javascript Software Engineer - Primary Javascript Software Engineer - Primary Scrub - Primary Time In 04/29/22 08:43:00 04/29/22 08:43:00 04/29/22 08:43:00 Time Out 04/29/22 09:34:00 04/29/22 09:34:00 04/29/22 09:34:00 Procedure HERNIA REPAIR VENTRAL HERNIA REPAIR VENTRAL HERNIA REPAIR VENTRAL ADULT(.) ADULT(.) ADULT(.) Comments Last Modified By: June Rowell RN, RN, June Pinto RN 04/29/22 09:34:47 04/29/22 09:34:47 04/29/22 09:34:47 Entry 7 Case Attendee Parris Griffith Role Performed Scrub - Primary Time In 04/29/22 08:43:00 Time Out 04/29/22 09:18:00 Procedure HERNIA REPAIR VENTRAL ADULT(.) Comments In and out of the room, available staff for scrub. Last Modified By: June Rowell RN 04/29/22 09:34:47 Perioperative Protocols FT Pre-Care Text: Implements protective measures prior to operative or invasive procedure, confirms identity before the operative or invasive procedure, verifies operative procedure, surgical site, and laterality Entry 1 Procedure(s) HERNIA REPAIR VENTRAL Patient Identity Birthday, ID Band ADULT(.) Verified (select at Check, Patient least 2): Participation Consents / H and P Anesthesia Consent, Operative Site N/A Verified HandP, Surgery/Procedure Marking Verified Consent, Transfusion Consent Surgical Site Yes Laterality Verified Yes Verified Procedure Verified Yes Correct Patient Yes Position Verified Availability Equipment, Medication Prep Dry No Verified (If Applicable) PreOp Antibiotic Yes Time Out Francis Jones CRNA, NILL MD, Siobhan Kraus RN, Lelia Bello RN, Waqas Monk RN, Gualberto Saldaña Adam A, Felton, Lauren R Time Out Complete 04/29/22 08:57:00 Outcomes Met? Yes Last Modified By: June Rowell RN 04/29/22 09:22:57 Post-Care Text: The patient is free from signs and symptoms of injury caused by extraneous objects Allergy Information FT Pre-Care Text: Verifies allergies Entry 1 Allergies Reviewed? Yes Allergies Reviewed Self/Patient With Outcomes Met? Yes Last Modified By: June Rowell RN 04/29/22 09:00:50 Post-Care Text: The patient received appropriate medication(s) safely administered during the perioperative period Surgical Procedures FT Entry 1 Procedure Description Procedure HERNIA REPAIR VENTRAL Modifiers . ADULT Surgeon Description EPIGASTRIC HERNIA REPAIR Primary Procedure Yes Primary Surgeon Camryn SNELL MD 04/29/22 08:58:00 Stop 04/29/22 09:32:00 Anesthesia Type General Surgical Service General Wound Class 1 - Clean Last Modified By: June Rowell RN 04/29/22 09:34:53 General Case Data FT Pre-Care Text: Classifies surgical wound, implements aseptic technique, initiates traffic control Entry 1 Case Information OR OR 6 FT Case Level Level 2 Wound Class 1 - Clean Specialty General ASA Class 2 Preop Diagnosis K43.9 EPIGASTRIC HERNIA Postop Same As Preop Yes Postop Diagnosis K43.9 EPIGASTRIC HERNIA Outcomes Met? Yes Last Modified By: Carol Plummer CST 04/30/22 14:35:34 Post-Care Text: The patient is free from signs and symptoms of infection Skin Assessment (Pre Procedure) FT Pre-Care Text: Implements protective measures to prevent skin/ tissue injury due to thermal or mechanical sources Evaluates for signs and symptoms of physical injury to skin and tissue Entry 1 Skin Integrity Intact, [place], Warm, and Skin Abnormality No Dry, Other/See Comments Outcomes Met? Y (more content not included)... Normal [facility] Preoperative Documentson Preoperative Documents [id number]# 1.00CD:[address] [facility] Consent for Treatmenton 04-11 Consent for Treatment [id number]#1 .00CD:[address] [facility] Inpatient Patient Summaryon 04-29-2022 Inpatient Patient Summary [place] [id number] [facility] Clinical Discharge Instructions PERSON INFORMATION Name: [facility]#:[id number] PHYSICIANS Admitting Physician: Camryn SNELL MD Attending Physician: Camryn SNELL MD PCP: Merissa JERNIGAN, Ester Discharge Diagnosis: Incarcerated incisional hernia; Unspecified abdominal pain Comment: PATIENT EDUCATION INFORMATION Instructions: Laparoscopic Ventral Hernia Repair, Care After; Post Op Patient Instructions - FT (CUSTOM) Medication Leaflets: Follow up: With: Address: When: [address], [address], [facility] [address] [place] [address] Business (1) Within 7 to 10 days MEDICATION LIST New Medications [id number], [address], [place] [id number], [phone] acetaminophen-oxycodo ne (acetaminophen-oxycod one 325 mg-5 mg Tab) 1 Tablets By Mouth every 6 hours as needed Pain. take with food or milk. Refills: 0. Medications to Continue with No Changes Other Medications acetaminophen-hydroco done (acetaminophen-hydroc odone 300 mg-5 mg oral tablet) 1 Tablets By Mouth every 8 hours as needed as needed for pain. carvedilol (carvedilol 25 mg Tab) 1 Tablets By Mouth 2 times a day. Fish Oil 1 cap By Mouth every day. magnesium oxide (magnesium oxide 400 mg Tab) 1 Tablets By Mouth every day. multivitamin with minerals (Celebrate Multivitamin) 1 Tablets By Mouth every day. tizanidine (tiZANidine 4 mg Tab) 2 Tablets By Mouth at bedtime. Turmeric (turmeric 500 mg oral capsule) 1 Capsules By Mouth every day. Comment: Normal [facility] Main OR PACU I Recordon 04-11 Main OR PACU I Record PACU Phase I Docum ent Type FT Summary Primary Physician: Camryn SNELL MD Finalized Date/Time: 04/29/22 10:13:04 Pt. Name: BRADEN PAYNE/Sex: 1955 Male Med Rec #: [id number] Physician: Camryn SNELL MD Financial #: [id number] Pt. Type: A Room/Bed: / Admit/Disch: 04/29/22 06:06:35 - Institution: Case Times PACU I FT Pre-Care Text: Identifies barriers to communication and implements measures to provide psychological support Develops individualized plan of care, and ensures continuity of care Maintains patient's dignity and privacy, and maintains patient confidentiality Identifies and reports philosophical, cultural, and spiritual beliefs and values Identifies individual values and wishes concerning care Implements aseptic technique, and administers prescribed antibiotic therapy and immunizing agents as ordered Evaluates postoperative tissue perfusion Implements thermoregulation measures, and monitors body temperature Evaluates postoperative respiratory status Evaluates postoperative cardiac status Evaluates postoperative neurological status Assesses pain control, collaborated in initiating patient-controlled analgesia and implements alternative methods of pain control Verifies allergies, administers prescribed medications and solutions, evaluates response to medications Entry 1 In PACU I 04/29/22 09:39:00 Discharge from PACU 04/29/22 10:09:00 I Outcomes Met? Yes Last Modified By: Lovely Johnson RN 04/29/22 10:12:43 Post-Care Text: The patient demonstrates knowledge of the expected response to the operative or invasive procedure The patient's care is consistent with the individualized perioperative plan of care The patient's right to privacy is maintained The patient's value system, lifestyle, ethnicity, and culture are considered, respected, and incorporated into the perioperative plan of care The patient participates in decisions affecting his or her perioperative plan of care The patient is free from signs and symptoms of infection The patient has wound/tissue perfusion consistent with or improved from baseline levels established preoperatively The patient is at or returning to normothermia at the conclusion of the immediate postoperative period The patient's respiratory function is consistent with or improved from baseline levels established preoperatively The patient's cardiovascular status is consistent with or improved from baseline levels established preoperatively The patient's cardiovascular status is consistent with or improved from baseline levels established preoperatively The patient demonstrates and/or reports adequate pain control throughout the perioperative period The patient received appropriate medication(s), safely administered during the perioperative period Acuity Level PACU I FT Entry 1 Start Time 04/29/22 09:39:00 Stop Time 04/29/22 10:09:00 Acuity Level Acuity Level I Last Modified By: Lovely Johnson RN 04/29/22 10:13:03 Finalized By: Lovely Johnson RN Document Signatures Signed By: Lovely Johnson RN 04/29/22 10:13 [facility] Main OR Preoperative Recordo n 04-29-2022 Main OR Preoperative Record PreOp Document Type FT Summary Primary Physician: Camryn SNELL MD Finalized Date/Time: 04/29/22 08:59:43 Pt. Name: BRADEN PAYNE Lew Myers/Sex: 1955 Male Med Rec #: [id number] Physician: Camryn SNELL MD Financial #: [id number] Pt. Type: A Room/Bed: [place] [address] Admit/Disch: 04/29/22 06:06:35 - Institution: Case Times PreOp FT Pre-Care Text: Verifies consent for planned procedure, identifies individual values and wishes concerning care, includes family members in perioperative teaching Entry 1 Patient Times. In Pre Surgery 04/29/22 06:10:00 Out Pre Surgery 04/29/22 08:41:00 Outcomes Met? Yes Last Modified By: June Rowell RN 04/29/22 08:59:38 Post-Care Text: The patient participates in decisions affecting his or her perioperative plan of care Finalized By: June Rowell RN Document Signatures Signed By: June Rowell RN 04/29/22 08:[address] [facility] Monitor Recordon 04-29-2022 Monitor Record [id number]# 1.00CD:[address] [facility] Operative Reporton Operative Report SURGERY DATE: 04/29/2022 PREOPERATIVE DIAGNOSIS: Incarcerated incisional hernia from laparoscopic cholecystectomy port site in the subxiphoid area POSTOPERATIVE DIAGNOSIS: Incarcerated incisional hernia from laparoscopic cholecystectomy port site in the subxiphoid area OPERATION: Primary repair of incarcerated incisional hernia in the subxiphoid area, defect was 1 cm ANESTHESIA: General with laryngeal mask airway ESTIMATED BLOOD LOSS: Less than 5 mL INDICATIONS AND CONSENT: The patient is a 67 year old male with history of remote laparoscopic cholecystectomy. He developed increasing bulge in the subxiphoid area. Workup revealed an incarcerated fat containing hernia in the subxiphoid area likely from the subxiphoid port from his cholecystectomy. Indications, risks, benefits, alternatives of proceeding with primary repair were explained extensively to the patient including risk of bleeding, infection, scarring, pain, recurrence, bowel injury, blood clot, pulmonary embolus, heart attack, anesthetic complications, need for further surgery. All of his questions were answered. Informed consent was obtained. PROCEDURE: The patient was brought to the Operating Room and placed in the supine position. General anesthesia was induced. He was prepped and drape din the usual sterile fashion. The previous subxiphoid port site incision was opened with a scalpel blade and carried down through subcutaneous tissue using sharp dissection as well as electrocautery. There was noted to be incarcerated preperitoneal fat within a 1 cm defect. Fat was reduced. The defect was freed up circumferentially. It was then closed transversely with interrupted 2-0 Prolene sutures. There was good hemostasis. The deep subcutaneous tissues was reapproximated with interrupted 2-0 Monocryl suture. The subcutaneous tissue was reapproximated with interrupted 3-0 Monocryl suture. The skin was then closed with a running 4-0 subcuticular Monocryl suture. Subcutaneous tissues were infiltrated with Exparel solution for postoperative pain control. Glue as well as a sterile pressure dressing was applied. Sponge and needle counts were correct x2 per Nursing personnel. The patient tolerated the procedure well. Abdominal binder is placed. He was then sent to Recovery Room in good condition. Camryn Snell M.D. FACS lr Dictated: 04/29/2022 [id number] Transcribed: 04/29/2022 cc:Ester Craven M.D. [facility] Comment on above: Result Comment: Elec tronically Signed By: Camryn SNELL MD\.br\Date and Time Signed: 04/29/22 10:49 EST Outpatient Surgery Discharge Instructionon 04-29-2022 Outpatient Surgery Discharge Instruction [place] [id number] Patient Discharge Instructions PERSON INFORMATION Name: BRADEN PAYNE Date of : 1955 Current Date: 04/29/2022 10:19:14 PHYSICIANS Admitting Physician: Camryn SNELL MD Discharge Diagnosis: Incarcerated incisional hernia; Unspecified abdominal pain BRADEN PAYNE has been given the following list of follow-up instructions, prescriptions, and patient education materials: PATIENT FOLLOW-UP INFORMATION Diet: Regular Discharge Activity: Arrange for a responsible adult supervision for 24 hours Discharge Restrictions: No driving, Do not operate machinery or tools, Do not make important decisions for 24 hours, Do not drink alcoholic beverages for 24 hours Call Your Doctor For: Persistent or heavy bleeding, Temperature above 101.5 degrees, Redness, swelling, or pus at operative site, Severe pain at the operative site, Persistent vomiting Wound Care Instructions: Keep incision dry, Remove dressing as instructed Remove Your Dressing In 1 Days Additional Instructions: may shower tomorrow, remove dressing and leave open to air; wear cotton t-shirt under binder so it doesn't rub on incision; wear binder at all times; no lifting > 10 lbs for 4 weeks; no driving while taking the percocet; take ibuprofen scheduled IF UNABLE TO CONTACT YOUR PHYSICIAN AND YOU FEEL IT IS AN EMERGENCY, GO TO THE NEAREST EMERGENCY ROOM OR CALL [address] [place] RICHARD L, have received the attached patient education materials/instruction s and have verbalized understanding: May we do a follow up call? Yes No I was present when discharge instructions were given Patient Signature Date Clinican/Nurse Signature Date Follow up: With: Address: When: [address], [address], [place] [id number] [facility] (1) Within 7 to 10 days Pharmacy Information: You may receive a survey from [employer] asking you to rate your care experience. Your feedback is important and will help us understand what we do well and how we can improve the quality of care we provide to you, your loved ones and our community. It?s an honor to serve you. Thank you for choosing [facility] HERE ARE THE MEDICATION CHANGES THAT OCCURRED DURING YOUR HOSPITAL STAY New Medications [id number], [address], [place] [id number], [phone] acetaminophen-oxycodo ne (acetaminophen-oxycod one 325 mg-5 mg Tab) 1 Tablets By Mouth every 6 hours as needed Pain. take with food or milk. Refills: 0. Medications to Continue with No Changes Other Medications acetaminophen-hydroco done (acetaminophen-hydroc odone 300 mg-5 mg oral tablet) 1 Tablets By Mouth every 8 hours as needed as needed for pain. carvedilol (carvedilol 25 mg Tab) 1 Tablets By Mouth 2 times a day. Fish Oil 1 cap By Mouth every day. magnesium oxide (magnesium oxide 400 mg Tab) 1 Tablets By Mouth every day. multivitamin with minerals (Celebrate Multivitamin) 1 Tablets By Mouth every day. tizanidine (tiZANidine 4 mg Tab) 2 Tablets By Mouth at bedtime. Turmeric (turmeric 500 mg oral capsule) 1 Capsules By Mouth every day. PATIENT EDUCATION INFORMATION Instructions: Laparoscopic Ventral Hernia Repair, Care After This sheet gives you information about how to care for yourself after your procedure. Your health care provider may also give you more specific instructions. If you have problems or questions, contact your health care provider. What can I expect after the procedure? After the procedure, it is common to have: ? Pain, discomfort, or soreness. Follow these instructions at home: Incision care ? Follow instructions from your health care provider about how to take care of your incision. Make sure you: ? Wash your hands with soap and water before you change your bandage (dressing) or before you touch your abdomen. If soap and water are not available, use hand cnc milling machine operator. ? Change your dressing as told by your health care provider. ? Leave stitches (sutures), skin glue, or adhesive strips in place. These skin closures may need to stay in place for 2 weeks or longer. If adhesive strip edges start to loosen and curl up, you may trim the loose edges. Do not remove adhesive strips completely unless your health care provider tells you to do that. ? Check your incision area every day for signs of infection. Check for: ? Redness, swelling, or pain. ? Fluid or blood. ? Warmth. ? Pus or a bad smell. Bathing ? Do not take baths, swim, or use a h (more content not included)... [facility] Patient Education - Texton 0 04-29-2022 Patient Education - Text Gastroenterology Laparoscopic Ventral Hernia Repair, Care After This sheet gives you information about how to care for yourself after your procedure. Your health care provider may also give you more specific instructions. If you have problems or questions, contact your health care provider. What can I expect after the procedure? After the procedure, it is common to have: ? Pain, discomfort, or soreness. Follow these instructions at home: Incision care ? Follow instructions from your health care provider about how to take care of your incision. Make sure you: ? Wash your hands with soap and water before you change your bandage (dressing) or before you touch your abdomen. If soap and water are not available, use hand cnc milling machine operator. ? Change your dressing as told by your health care provider. ? Leave stitches (sutures), skin glue, or adhesive strips in place. These skin closures may need to stay in place for 2 weeks or longer. If adhesive strip edges start to loosen and curl up, you may trim the loose edges. Do not remove adhesive strips completely unless your health care provider tells you to do that. ? Check your incision area every day for signs of infection. Check for: ? Redness, swelling, or pain. ? Fluid or blood. ? Warmth. ? Pus or a bad smell. Bathing ? Do not take baths, swim, or use a hot tub until your health care provider approves. Ask your health care provider if you can take showers. You may only be allowed to take sponge baths for bathing. ? Keep your bandage (dressing) dry until your health care provider says it can be removed. Activity ? Do not lift anything that is heavier than 10 lb (4.5 kg) until your health care provider approves. ? Do not drive or use heavy machinery while taking prescription pain medicine. Ask your health care provider when it is safe for you to drive or use heavy machinery. ? Do not drive for 24 hours if you were given a medicine to help you relax (sedative) during your procedure. ? Rest as told by your health care provider. You may return to your normal activities when your health care provider approves. General instructions ? Take lntg-tsl-egmvvwd and prescription medicines only as told by your health care provider. ? To prevent or treat constipation while you are taking prescription pain medicine, your health care provider may recommend that you: ? Take jmyk-gdt-emnmzbv or prescription medicines. ? Eat foods that are high in fiber, such as fresh fruits and vegetables, whole grains, and beans. ? Limit foods that are high in fat and processed sugars, such as fried and sweet foods. ? Drink enough fluid to keep your urine clear or pale yellow. ? Hold a pillow over your abdomen when you cough or sneeze. This helps with pain. ? Keep all follow-up visits as told by your health care provider. This is important. Contact a health care provider if: ? You have: ? A fever or chills. ? Redness, swelling, or pain around your incision. ? Fluid or blood coming from your incision. ? Pus or a bad smell coming from your incision. ? Pain that gets worse or does not get better with medicine. ? Nausea or vomiting. ? A cough. ? Shortness of breath. ? Your incision feels warm to the touch. ? You have not had a bowel movement in three days. ? You are not able to urinate. Get help right away if: ? You have severe pain in your abdomen. ? You have persistent nausea and vomiting. ? You have redness, warmth, or pain in your leg. ? You have chest pain. ? You have trouble breathing. Summary ? After this procedure, it is common to have pain, discomfort, or soreness. ? Follow instructions from your health care provider about how to take care of your incision. ? Check your incision area every day for signs of infection. Report any signs of infection to your health care provider. ? Keep all follow-up visits as told by your health care provider. This is important. This information is not intended to replace advice given to you by your health care provider. Make sure you discuss any questions you have with your health care provider. Document Released: 02/10/2013 Document Revised: 02/06/2018 Document Reviewed: 10/16/2016 [employer] Patient Education ? 2019 [employer]. [facility] Progress Note-Physicianon Progress Note-Physician Patient: BRADEN PAYNE Age: 67 years Sex: Male : 1955 Associated Diagnoses: None Author: Rich Abreu MD Preoperative Information Anesthesia Preop Info: Time patient last ate or drank 04/28/2022 22:00:00. Anesthesia history: Patient history: None. Family history+: None. Anesthesia results: Reviewed Results: Anesthesia results from flowsheet : Results(Date Range: 04/22/2022 9:01 EST - 04/29/2022 6:21 EST) . Informed consent: Signed by patient. Including risks, benefits, and alternatives related to the: Anesthetic plan. Re-evaluation prior to induction: Rich Abreu MD. Initial evaluation reviewed: No significant change. Review of Systems Eye: Negative. Ear/Nose/Mouth/Throat : Negative. Respiratory: Negative. Cardiovascular: Negative. Gastrointestinal: Negative except as documented in history of present illness. Genitourinary: Negative. Hematology/Lymphatics : Negative. Endocrine: Negative. Musculoskeletal: Negative. Neurologic: Negative. Health Status Allergies: Allergic Reactions (Selected) Severity Not Documented Penicillin- Rash., Allergies (1) Active Reaction penicillin Rash Current medications: (Selected) Inpatient Medications Ordered Lactated Ringers IV Hawa 1000 mL 1,000 mL: 1,000 mL, IV, 150 mL/hr, Routine, Start date 04/29/22 6:30:00 EST, 6.7 hour(s), Total volume (mL): 1,000, 87.4 kg, 2.11, m2 clindamycin additive + Premix Dextrose 5% Diluent 50 mL: 900 mg = 50 mL, Soln-IV, IV Piggyback, PREOP, Routine, Start date 04/29/22 6:30:00 EST, 100 mL/hr, Infuse over 30 minute(s) famotidine 10 mg/mL IV Hawa: 20 mg = 2 mL, Soln-IV, IV Push, Once, Stop date 04/29/22 7:00:00 EST, Routine, Start date 04/29/22 7:00:00 EST, 04/29/22 6:30:00 EST Documented Medications Documented Celebrate Multivitamin: 1 tab(s), Oral, Daily, Prophylaxis Fish Oil: 1 cap, Oral, Daily, Prophylaxis acetaminophen-hydroco done 300 mg-5 mg oral tablet: 1 tab(s), Oral, q8hr as needed for pain, Refill(s) 0 carvedilol 25 mg Tab: 25 mg = 1 tab(s), Oral, BID, Refills(s) 0, High blood pressure magnesium oxide 400 mg Tab: 400 mg = 1 tab(s), Oral, Daily, Refills(s) 0, Prophylaxis tiZANidine 4 mg Tab: 8 mg = 2 tab(s), Oral, Bedtime, Refills(s) 0, Insomnia turmeric 500 mg oral capsule: 500 mg = 1 cap(s), Oral, Daily, Prophylaxis, Home Medications (7) Active acetaminophen-hydroco done 300 mg-5 mg oral tablet 1 tab(s), PRN, Oral, q8hr carvedilol 25 mg Tab 25 mg = 1 tab(s), Oral, BID Celebrate Multivitamin 1 tab(s), Oral, Daily Fish Oil 1 cap, Oral, Daily magnesium oxide 400 mg Tab 400 mg = 1 tab(s), Oral, Daily tiZANidine 4 mg Tab 8 mg = 2 tab(s), Oral, Bedtime turmeric 500 mg oral capsule 500 mg = 1 cap(s), Oral, Daily , Medications (3) Active Scheduled: (2) clindamycin 900 mg/50 mL-D5W + Dextrose 5% Premix Diluent 50 mL 900 mg 50 mL, IV Piggyback, PREOP famotidine 10 mg/mL IV Hawa [F] 20 mg 2 mL, IV Push, Once Continuous: (1) Lactated Ringers 1,000 mL 1,000 mL, IV, 150 mL/hr PRN: (0) Problem list: All Problems BMI 26.0-26.9,adult / SNOMED CT 6024077594 / Confirmed Diverticulosis / SNOMED CT 6730488485 / Confirmed Epigastric pain / SNOMED CT 777518011 / Confirmed Hernia, epigastric / SNOMED CT 525732584 / Confirmed Hypertension / SNOMED CT 8296085159 / Confirmed Incarcerated epigastric hernia / SNOMED CT 016735358 / Confirmed Inflamed skin tag / SNOMED CT 962970004 / Confirmed Internal hemorrhoid / SNOMED CT 643700005 / Confirmed Intradermal nevus / SNOMED CT 726432452 / Confirmed Lumbar radiculopathy / SNOMED CT 762999758 / Confirmed Lumbar spondylosis / SNOMED CT 880489830 / Confirmed Neoplasm of uncertain behavior of skin / SNOMED CT 859825367 / Confirmed Screening for malignant neoplasm of colon / SNOMED CT 132269976 / Confirmed Seborrheic keratosis / SNOMED CT 1769237640 / Confirmed Seborrheic keratosis, inflamed / SNOMED CT 8701471533 / Confirmed 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 / SNOMED CT 9158261882 / Confirmed SVT (supraventricular tachycardia) / SNOMED CT 45062881 / Confirmed Ventricular premature contractions / SNOMED CT 12610264 / Confirmed, Active Problems (18) BMI 26.0-26.9,adult Diverticulosis Epigastric pain Hernia, epigastric Hypertension Incarcerated epigastric hernia Inflamed skin tag Internal hemorrhoid Intradermal nevus Lumbar radiculopathy Lumbar spondylosis Neoplasm of uncertain behavior of skin Screening for malignant neoplasm of colon Seborrheic keratosis Seborrheic keratosis, inflamed 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 Family History: Primary malignant neoplasm of skin Father Breast cancer Brother Hypertension Father Mother Diabetes mellitus type 2 Fat (more content not included)... Normal [facility] Comment on above: Result Comment: Elec tronically Signed By: Brady JERNIGAN, Rich Ortizbr\Date and Time Signed: 04/29/22 06:29 EST Formson 04-26-2022 Forms [id number] .00CD:[address] [facility] Consent for Procedure/Surger yon 04-24-2022 Consent for Procedure/Surgery [id number] .00CD:[address] [facility] Ambulatory Visit Summaryon 0 04-23-2022 Ambulatory Visit Summary BRADEN PAYNE :1955 Visit Date:04/19/2022 Ambulatory Visit Instructions Your Diagnosis Incarcerated epigastric hernia Your Care Team Attending Physician - VAMSI JERNIGAN, Camryn Rodriguez Primary Care Physician - Merissa JERNIGAN, Ester This Is Your Medications List Fish Oil Turmeric (turmeric 500 mg oral capsule) multivitamin with minerals (Celebrate Multivitamin) Contact prescribing physician if questions or concerns acetaminophen-hydroco done (acetaminophen-hydroc odone 300 mg-5 mg oral tablet) carvedilol (carvedilol 25 mg Tab) magnesium oxide (magnesium oxide 400 mg Tab) tizanidine (tiZANidine 4 mg Tab) Procedures Performed Back (03/10/2012), Back (1999), Cholecystectomy (03/10/1993), Excision of lesion of skin, Laminectomy. What to do next Scheduled Follow-Up Appointments Friday 8:30 AM EST Where: [facility] Medications What How Much When Instructions Unchanged Fish Oil 1 cap By Mouth Every day Unchanged multivitamin with minerals (Celebrate Multivitamin) 1 Tablets By Mouth Every day Unchanged Turmeric (turmeric 500 mg oral capsule) 1 Capsules By Mouth Every day Unchanged acetaminophen-hydroco done (acetaminophen-hydroc odone 300 mg-5 mg oral tablet) 1 Tablets By Mouth Every 8 hours as needed for as needed for pain Contact prescribing physician if questions or concerns Unchanged carvedilol (carvedilol 25 mg Tab) 1 Tablets By Mouth 2 times a day Contact prescribing physician if questions or concerns Unchanged magnesium oxide (magnesium oxide 400 mg Tab) 1 Tablets By Mouth Every day Contact prescribing physician if questions or concerns Unchanged tizanidine (tiZANidine 4 mg Tab) 2 Tablets By Mouth At bedtime Contact prescribing physician if questions or concerns Allergies penicillin (Rash) Problems Ongoing - Any problem that you are currently receiving treatment for. 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 BUNon 04-22-2022 Urea nitrogen [Mass/Vol] 25 mg/dL High 5-21 [facility] Comment on above: Performed By: #### 2 683072, 4619767, 6585497, 4513224, 14121300, 6298815 ####[facility] [address] [place] [address] CBC w/Indiceson 04-22-2022 Erythrocyte distribution width (RBC) [Ratio] 12.2 % Normal 10.9-14.2 [facility] Comment on above: Performed By: #### 2 139776, 8688964, 8340823, 8419023, 53572000, 6906392 ####[facility] [address] [place] [address] Hematocrit (Bld) [Volume fraction] 44.4 % Normal 37.7-49.0 [facility] Comment on above: Performed By: #### 2 531687, 9134500, 6263523, 2180541, 66779566, 7271530 ####[facility] [address] [place] [address] Hemoglobin (Bld) [Mass/Vol] 14.8 g/dL Normal 13.5-17.5 [facility] Comment on above: Performed By: #### 2 161796, 0122546, 3807742, 2460215, 25111887, 8870757 ####[facility] [address] [place] [address] MCH (RBC) [Entitic mass] 31.6 pg Normal 27.0-34.0 [facility] Comment on above: Performed By: #### 2 051400, 7175361, 3641840, 9539669, 80829899, 7235430 ####[address] [place] [address] MCHC (RBC) [Mass/Vol] 33.3 g/dL Normal 31.4-36.0 [facility] Comment on above: Performed By: #### 2 771731, 1216478, 0976633, 1950529, 74767152, 9986114 ####[address] [address] MCV (RBC) [Entitic vol] 95.1 fL Normal 80.0-100.0 [facility] Comment on above: Performed By: #### 2 294877, 5737248, 9104765, 1584102, 95281336, 2160785 ####[address] [address] Platelet mean volume (Bld) [Entitic vol] 8.4 fL Normal 6.4-10.8 [facility] Comment on above: Performed By: #### 2 873336, 4367661, 4638304, 3706208, 93521914, 2417820 ####[address] [address] Platelets (Bld) [#/Vol] 286.0 E9/L Normal 150.0-500.0 [facility] Comment on above: Performed By: #### 2 782118, 6395879, 6845854, 2554645, 90725873, 9110363 ####[address] [place] [address] RBC (Bld) [#/Vol] 4.7 E12/L Normal 4.3-5.9 [facility] Comment on above: Performed By: #### 2 728669, 0736992, 7930549, 2613623, 54673103, 7889309 ####[address] [place] [address] WBC corrected for nucl RBC Auto (Bld) [#/Vol] 9.2 E9/L Normal 4.0-11.0 [facility] Comment on above: Performed By: #### 2 820258, 3883051, 3077857, 9378203, 25136145, 7363760 ####[facility] [address] [place] [address] Consent for Procedure/Surger yon 04-22-2022 Consent for Procedure/Surgery [id number] .00CD:[address] [facility] Consent for Treatmenton 04-10 Consent for Treatment [id number] .00CD:[address] [facility] Creatinineon 04-22-2022 Creatinine [Mass/Vol] 1.0 mg/dL Normal 0.5-1.3 [facility] Comment on above: Performed By: #### 2 324859, 1976255, 8684267, 2637813, 70845085, 6318400 ####[facility] [address] [place] [address] Glucoseon 04-22-2022 Glucose [Mass/Vol] 114 mg/dL Normal 55-199 [facility] Comment on above: Performed By: #### 2 640934, 8606256, 5501654, 7712101, 02072839, 6156835 ####[facility] [address] [place] [address] Lyteson 04-22-2022 Anion gap [Moles/Vol] 12 mmol/L Normal 6-16 [facility] Comment on above: Performed By: #### 2 496461, 5608248, 8062766, 6869772, 68207026, 5166760 ####[facility] [address] [place] [address] Chloride [Moles/Vol] 103 mmol/L Normal 101-111 [facility] Comment on above: Performed By: #### 2 078441, 9374976, 5891156, 0632913, 74232671, 0663360 ####[facility] [address] [place] [address] CO2 [Moles/Vol] 27 mmol/L Normal 21-31 [facility] Comment on above: Performed By: #### 2 284024, 0692089, 8214515, 3377550, 01169506, 0543000 ####[facility] [address] [place] [address] Potassium [Moles/Vol] 3.6 mmol/L Normal 3.5-5.3 [facility] Comment on above: Performed By: #### 2 473793, 0032183, 4391681, 8754855, 39631043, 2356702 ####[facility] [address] [place] [address] Sodium [Moles/Vol] 138 mmol/L Normal 135-145 [facility] Comment on above: Performed By: #### 2 878949, 6975005, 7770136, 3116583, 00643502, 9645442 ####[facility] [address] [facility] [place] [place] [address] XR Chest 2 Viewson 3 XR Chest 2 Views Exam Date/Time: 04/22/2022 09:56 EST Reason for Exam: pre op Report IMPRESSION: There are no acute cardiopulmonary changes. CLINICAL HISTORY: pre op TECHNIQUE: AP chest x-ray COMPARISON: FINDINGS: The cardiomediastinal silhouette is unremarkable. The lungs are free of infiltrates effusions or consolidations. There are no acute osseous changes. FINAL REPORT Dictated: 04/22/2022 5:05 pm Filipe Samson MD, V. Signed (Electronic Signature): 04/22/2022 5:05 pm Signed by: Filipe Samson MD, V. Transcribed by: YONAS Technologist: ARLEN Normal [facility] eGFRon 04-22-2022 GFR/1.73 sq M.predicted among blacks MDRD (S/P/Bld) [Vol rate/Area] mL/min/{1.73_m2} Normal >=59 [facility] Comment on above: Order Comment: Order added by Discern Expert. Result Comment: eGFR is race adjusted. AA=. Performed By: #### 2 966088, 6187331, 9029949, 1114175, 74940532, 1221836 ####[facility] [address] [place] [address] GFR/1.73 sq M.predicted among non-blacks MDRD (S/P/Bld) [Vol rate/Area] mL/min/{1.73_m2} Normal >=59 [facility] Comment on above: Order Comment: Order added by Discern Expert. Result Comment: Flexo Operator mars kidney disease could be indicated at eGFR's of less than 60 mL/min/1.73m2. Kidney failure is indicated at less than 15 mL/min/1.73m2. Performed By: #### 2 471115, 1904790, 7962057, 7284696, 37230609, 8650247 ####[facility] [address] [place] [address] General Surgery Office/Clini c Noteon 04-19-2022 General Surgery Office/Clinic Note Chief Complaint discuss ventral hernia repair HPI Staff Presents to discuss recommended primary epigastric hernia repair. CT completed 2/2 with fat filled ventral hernia. Denies change in symptoms since last evaluation. History of Present Illness 67 yo male with h/o htn, lumbar radiculopathy, SVT, presents for reevaluation of epigastric hernia; patient had abd ct scan that revealed epigastric, far- containing hernia; only 1 cm defect; likely at trochar site from LS cholecystectomy; no change since previous evaluation, mild soreness; partially reducible; no skin changes; no N/V or bowel changes; no other abd operations; no asa or NSAID use; no tobacco use. Review of Systems ROS - Provider Constitutional: no fever, no sweats, no weight loss. Eyes: no glasses, no blurred vision, no visual loss. ENMT: no dentures, no hoarseness, no swallowing difficulties, no hearing loss, no ear infection(s), no nose bleeds. Cardiovascular: normal blood pressure, no chest pain, regular heartbeat, no heart murmur. Respiratory: no shortness of breath, no cough, no asthma, no wheezing. Gastrointestinal: no nausea, no vomiting, no diarrhea, no constipation, no blood in stool, no change in bowel habits, yes abdominal pain, no hepatitis. Genitourinary: no kidney stones, no urine infection, no dysuria. Musculoskeletal: no pain, no weakness. Skin: no changing moles, no rash, no skin lumps. Neurologic: no seizures, no epilepsy, no headache. Psychiatric: no emotional or psychiatric problem. Heme/Lymph: no bleeding problems, no anemia, no blood clots, no transfusions. Allergy/Immunologic: no swollen lymph nodes/glands, no IV drug abuse. Other: Additional ROS info: Except as noted in the above Review of Systems and in the History of Present Illness, all other systems have been reviewed and are negative or noncontributory. Physical Exam HEENT: normal conjunctiva, sclera clear, no scleral icterus, EOM intact, PERRLA, oral mucosa moist without lesions. Neck: trachea midline, no mass, symmetric, no thyromegaly or nodules, no adenopathy Respiratory: lungs CTA, respirations non labored. Cardiovascular: regular rate and rhythm, no murmur, no pedal edema or varicosities. Gastrointestinal: soft, non distended, no tenderness, no masses, incarcerated epigastric hernia, partially reducible; no skin changes, nontender, diastasis recti yes, no hepatosplenomegaly; normal bs Lymphatic: no cervical adenopathy, no supraclavicular adenopathy Musculoskeletal: normal gait, digits and nails without infection, nodes, cyanosis, clubbing. Skin: no rashes, no lesions, no ulcers, no subcutaneous nodules, induration. Psychiatric/Neuro: oriented to time, place, person, judgement normal, affect appropriate for age, insight intact, no focal deficits. Tests: labs reviewed, x-rays reviewed, review of old records completed, Discussed surgical options, risks, and possible complications with patient. Assessment/Plan 1. Incarcerated epigastric hernia (K43.6: Other and unspecified ventral hernia with obstruction, without gangrene) 1 cm defect on abd ct scan; plan primary repair under anesthesia; informed consent obtained. 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 Medications acetaminophen-hydroco done 300 mg-5 mg oral tablet, 1 tab(s), Oral, q8hr, Not taking carvedilol 25 mg Tab, 25 mg= 1 tab(s), Oral, BID isoniazid 300 mg Tab, 300 mg= 1 tab(s), Oral, Daily, Not taking lisinopril 20 mg Tab, 20 mg= 1 tab(s), Oral, Daily magnesium oxide 400 mg Tab, 400 mg= 1 tab(s), Oral, Daily, Not taking tiZANidine 4 mg Tab, 8 mg= 2 tab(s), Oral, Bedtime Allergies penicillin (Rash) Social History Alcohol - Denies Alcohol Use, 05/27/2019 Substance Abuse - Denies Substance Abuse, 05/27/2019 Tobacco Never (less than 100 in lifetime) Tobacco Use:. Never Smokeless Tobacco Use:., 04/03/2022 Family History Breast cancer: Brother. Diabetes mellitus type 2: Father. Hypertension: Mother and Father. Melanoma: Father and Brother. Primary malignant neoplasm of skin: Father. Immunizations Vaccine Date Status Comments influenza virus vaccine, inactivated - Not Given Patient Refuses SARS-CoV-2 (COVID-19) mRNA BNT-162b2 vax 12/29/2020 Recorded SARS-CoV-2 (COV (more content not included)... Normal [facility] Comment on above: Result Comment: Elec tronically Signed By: VAMSI JERNIGAN, Camryn Baker\Date and Time Signed: 04/19/22 16:[address] ABDOMEN W CONon 3 CT ABDOMEN W CON EXAMINATION: CT ABDOMEN W CON HISTORY: Epigastric pain , ventral hernia COMPARISON: No relevant comparison available. TECHNIQUE: CT images were created with IV contrast. Axial, Coronal, and Sagittal images. Dose reduction techniques were achieved by using automated exposure control and/or adjustment of mA and/or kV according to patient size and/or use of iterative reconstruction technique FINDINGS: LUNG BASES: No visible pulmonary or pleural disease. LIVER: No enlargement, atrophy, abnormal density, or significant focal lesion. BILIARY: Cholecystectomy. PANCREAS: No lesion, fluid collection, ductal dilatation, or atrophy. SPLEEN: No enlargement or focal lesion. ADRENALS: No mass or enlargement. KIDNEYS: No mass, obstruction, or calcification. BOWEL/MESENTERY: No visible mass, obstruction, or bowel wall thickening. AORTA/VASCULAR: No aneurysm or dissection. RETROPERITONEUM: No mass or adenopathy. ABDOMINAL WALL: Midline ventral hernia approximately 5.3 x 5.1 cm in diameter by 1.2 cm in thickness protruding through a 1.0 cm wide neck, located midway between the sternal xiphoid and umbilicus. No bowel involvement or strangulation. BONES: No bony lesion or fracture. OTHER: Negative. IMPRESSION: 1. Fat filled ventral hernia midway between sternal xiphoid and umbilicus; no strangulation or bowel involvement. Electronically authenticated by: WILTON NICHOLE Date: 2022-04-12 08:12 Normal [facility] Lab Reportson 04-12-2022 Lab Reports [id number] .00CD:[address] [facility] RAD - CT Reporton 04-12-2022 RAD - CT Report [id number] .00CD:[address] [facility] CREATININEon 04-11-2022 Creatinine [Mass/Vol] 0.80 mg/dL Normal 0.70-1.30 [facility] Comment on above: Performed By: #### P [facility], VITAD #### [facility] [address] [address] [address] Max Peck EGFR-AF STATELESS >60 Normal >=60 [facility] Comment on above: Performed By: #### P [facility], VITAD #### [facility] [address] [address] [address] Max Peck EGFR-NON AF STATELESS >60 Normal >=60 [facility] Comment on above: Performed By: #### P [facility], VITAD #### [facility] [address] [address] [address] Max Peck Ambulatory Visit Summaryon 0 04-10-2022 Ambulatory Visit Summary BRADEN PAYNE :1955 Visit Date:04/03/2022 Ambulatory Visit Instructions Your Diagnosis Hernia, epigastric Epigastric pain, Acute epigastric pain Tests Performed CT Abdomen w/ Contrast -- Results Pending -- Please visit your patient portal for your results or contact your primary care physician. Your Care Team Attending Physician - VAMSI JERNIGAN, Camryn Rodriguez Primary Care Physician - Ester Craven MD This Is Your Medications List Contact prescribing physician if questions or concerns acetaminophen-hydroco done (acetaminophen-hydroc odone 300 mg-5 mg oral tablet) carvedilol (carvedilol 25 mg Tab) isoniazid (isoniazid 300 mg Tab) lisinopril (lisinopril 20 mg Tab) magnesium oxide (magnesium oxide 400 mg Tab) tizanidine (tiZANidine 4 mg Tab) Procedures Performed Back (03/10/2012), Back (1999), Cholecystectomy (03/10/1993), Excision of lesion of skin, Laminectomy. Medications What How Much When Instructions Unchanged acetaminophen-hydroco done (acetaminophen-hydroc odone 300 mg-5 mg oral tablet) 1 Tablets By Mouth Every 8 hours Contact prescribing physician if questions or concerns Unchanged carvedilol (carvedilol 25 mg Tab) 1 Tablets By Mouth 2 times a day Contact prescribing physician if questions or concerns Unchanged isoniazid (isoniazid 300 mg Tab) 1 Tablets By Mouth Every day Contact prescribing physician if questions or concerns Unchanged lisinopril (lisinopril 20 mg Tab) 1 Tablets By Mouth Every day Contact prescribing physician if questions or concerns Unchanged magnesium oxide (magnesium oxide 400 mg Tab) 1 Tablets By Mouth Every day Contact prescribing physician if questions or concerns Unchanged tizanidine (tiZANidine 4 mg Tab) 2 Tablets By Mouth At bedtime Contact prescribing physician if questions or concerns Medications and Immunizations Administered Not Given influenza virus vaccine, inactivated, Patient Refuses Allergies penicillin (Rash) Problems Ongoing - Any problem that you are currently receiving treatment for. 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 Facesheeton 04-04-2022 Facesheet [id number] .00CD:[address] [facility] ED Note-Physicianon 03-21-19 ED Note-Physician [id number] .00CD:[address] [facility] RAD - MISCon 03-18-2022 RAD - MISC [id number] .00CD:[address] [facility] XR ABD FLAT UP_PA Kuldip 03-16 XR ABD FLAT UP_PA CH ACUTE ABDOMINAL SERIES WITH CHEST X-RAY HISTORY: Abdominal pain. Comparison: None. FINDINGS: The lungs are clear and the costophrenic angles are sharp. There is no infiltrate, effusion, or pneumothorax seen. There is air and stool seen scattered throughout the colon. There is no evidence for free air or air-fluid levels present. IMPRESSION: No acute cardiopulmonary disease. No evidence of obstruction or ileus. Electronically authenticated by: EDENILSON KNIGHT Date: 2022-03-16 10:42 Normal [facility] LIPID PROFILEon 03-06-2022 CHOL-HDL RATIO NORM SEE BELOW Normal [facility] Comment on above: Result Comment: 3.3 - 4.4 LOW RISK 4.4 - 7.1 AVERAGE RISK 7.1 - 11.0 MODERATE RISK >11.0 HIGH RISK Performed By: #### [facility] #### [facility] [address] [address] [address] Max Peck Cholesterol [Mass/Vol] 163 mg/dL Normal <=200 [facility] Comment on above: Performed By: #### P ANDREE ARIAS #### [facility] [address] [address] [address] Max Peck Cholesterol in HDL [Mass/Vol] 50 mg/dL Normal 40-60 [facility] Comment on above: Performed By: #### P [facility], VITAD #### [facility] [facility] [address] [address] [address] Max Peck Cholesterol in LDL [Mass/Vol] 100.0 mg/dL Normal [facility] Comment on above: Performed By: #### P SASC, VITAD #### [facility] [address] [address] [address] Max Peck Cholesterol.total/Cho lesterol in HDL [Mass ratio] 3.3 {ratio} Normal [facility] Comment on above: Performed By: #### P SASC, VITAD #### [facility] [address] [place] [address] Dr. Max Peck HDL NORMAL > or = 60 mg/dl - LO W CARDIOVASCULAR RISK <40 mg/dl - HIGH CARDIOVASCULAR RISK Normal [facility] Comment on above: Performed By: #### P SASC, VITAD #### [facility] [address] [place] [address] Dr. Max Peck LDL CALC NORMAL SEE BELOW Normal [facility] Comment on above: Result Comment: <100 mg/dl OPTIMAL 100 - 129 mg/dl NEAR OR ABOVE OPTIMAL 130 - 159 mg/dl BORDERLINE HIGH 160 - 189 mg/dl HIGH >190 mg/dl VERY HIGH Performed By: #### P SASC, VITAD #### [facility] [address] [place] [address] Dr. Max Peck Triglyceride [Mass/Vol] 65 mg/dL Normal <=150 [facility] Comment on above: Performed By: #### P SASC, VITAD #### [facility] [address] [address] [address] Max Peck VLDL CALC 13.0 mg/dL Normal [facility] Comment on above: Performed By: #### P SASC, VITAD #### [facility] [address] [place] [address] Dr. Max Peck PROF 14(COMP METB)on 022 Albumin [Mass/Vol] 3.9 g/dL Normal 3.4-5.0 [facility] Comment on above: Performed By: #### P SASC, VITAD #### [facility] [address] [address] [address] Max Peck Albumin/Globulin [Mass ratio] 1.3 {ratio} Normal [facility] Comment on above: Performed By: #### P SASC, VITAD #### [facility] [address] [address] [address] Max Peck ALP [Catalytic activity/Vol] 79 U/L Normal 46-116 [facility] Comment on above: Performed By: #### P SASC, VITAD #### [facility] [address] [address] [address] Max Peck ALT [Catalytic activity/Vol] 24 U/L Normal 16-63 [facility] Comment on above: Performed By: #### P SASC, VITAD #### [facility] [address] [address] [address] Max Peck Anion gap [Moles/Vol] 12.3 mmol/L Normal [facility] Comment on above: Performed By: #### P SASC, VITAD #### [facility] [address] [place] [address] Dr. Max Peck AST [Catalytic activity/Vol] 25 U/L Normal 15-37 [facility] Comment on above: Performed By: #### P SASC, VITAD #### [facility] [address] [address] [address] Max Peck Bilirubin [Mass/Vol] 1.4 mg/dL Critically high 0.2-1.0 [facility] Comment on above: Performed By: #### P SASC, VITAD #### [facility] [address] [place] [address] Dr. Max Peck Calcium [Mass/Vol] 9.1 mg/dL Normal 8.5-10.1 [facility] Comment on above: Performed By: #### P SASC, VITAD #### [facility] [address] [place] [address] Dr. Max Peck Chloride [Moles/Vol] 100 mmol/L Normal 98-107 [facility] Comment on above: Performed By: #### P SASC, VITAD #### [facility] [address] [place] [address] Dr. Max Peck CO2 [Moles/Vol] 30.7 mmol/L Normal 21.0-32.0 [facility] Comment on above: Performed By: #### P SASC, VITAD #### [facility] [address] [place] [address] Dr. Max Peck Creatinine [Mass/Vol] 0.86 mg/dL Normal 0.70-1.30 [facility] Comment on above: Performed By: #### P SASC, VITAD #### [facility] [address] [place] [address] Dr. Max Peck EGFR-AF STATELESS 60 mL/min/1.73m2 Normal >=60 [facility] Comment on above: Performed By: #### P SASC, VITAD #### [facility] [address] [place] [address] Dr. Max Peck EGFR-NON AF STATELESS 60 mL/min/1.73m2 Normal >=60 [facility] Comment on above: Performed By: #### P SASC, VITAD #### [facility] [address] [place] [address] Dr. Max Peck Globulin (S) [Mass/Vol] 3.1 g/dL Normal [facility] Comment on above: Performed By: #### P SASC, VITAD #### [facility] [address] [place] [address] Dr. Max Peck Glucose [Mass/Vol] 102 mg/dL Normal 74-106 [facility] Comment on above: Performed By: #### P SASC, VITAD #### [facility] [address] [place] [address] Dr. Max Peck Potassium [Moles/Vol] 4.0 mmol/L Normal 3.5-5.1 [facility] Comment on above: Performed By: #### P SASC, VITAD #### [facility] [address] [address] [address] Max Peck Protein [Mass/Vol] 7.0 g/dL Normal 6.4-8.2 [facility] Comment on above: Performed By: #### P SASC, VITAD #### [facility] [address] [address] [address] Max Peck Sodium [Moles/Vol] 139 mmol/L Normal 136-145 [facility] Comment on above: Performed By: #### P SASC, VITAD #### [facility] [address] [address] [address] Max Peck Urea nitrogen [Mass/Vol] 10.0 mg/dL Normal 7.0-18.0 [facility] Comment on above: Performed By: #### P SASC, VITAD #### [facility] [address] [place] [address] Dr. Max Peck Urea nitrogen/Creatinine [Mass ratio] 11.6 mg/mg Normal [facility] Comment on above: Performed By: #### P SASC, VITAD #### [facility] [address] [place] [address] Dr. Max Peck XR CSPINE MIN 4 VIEWSon 01-08 XR CSPINE MIN 4 VIEWS EXAMINATION: XR CSPINE MIN 4 VIEWS HISTORY: Cervical radiculopathy ; acute neck pain radiating into right arm, no known injury COMPARISON: No relevant comparison available. FINDINGS: BONES: Straightening of the normal lordotic curvature. No fracture or spondylolisthesis. Mild facet arthropathy. Multilevel moderate foramen narrowing secondary to facet hypertrophy and uncovertebral joint spurring. DISC SPACES: Moderate narrowing C3-C4, C5-C6. Mild narrowing C4-C5 and C6-C7. PARASPINOUS: Negative. No paraspinous abnormality is seen. OTHER: Negative. IMPRESSION: 1. No appreciable acute abnormality. 2. Suspect multilevel moderate foramen narrowing secondary to moderate degenerative disc disease and mild degenerative facet arthropathy. Electronically authenticated by: WILTON NICHOLE Date: 2022-01-19 07:14 Normal [facility] HEPATITIS PANEL, ACUTEon HBsAg Screen Negative Normal Negative [facility] Comment on above: Performed By: #### P SASC, VITAD #### [facility] [address] [address] [address] Max Peck HCV AB <0.1 Normal 0.0-0.9 [facility] Comment on above: Performed By: #### P SASC, VITAD #### [facility] [address] [place] [address] Dr. Max Peck Hep A Ab, IgM Negative Normal Negative [facility] Comment on above: Performed By: #### P SASC, VITAD #### [facility] [address] [place] [address] Dr. Max Peck Hep B Core Ab, IgM Negative Normal Negative [facility] Comment on above: Performed By: #### P SASC, VITAD #### [facility] [address] [place] [address] Dr. Max Peck Interpretation: Comment Normal [facility] Comment on above: Result Comment: Nega tive Not infected with HCV, unless recent infection is suspected or other evidence exists to indicate HCV infection. Performed By: #### P SASC, VITAD #### [facility] [address] [place] [address] Dr. Max Peck INSULINon 12-29-2021 Insulin 15.1 uIU/mL Normal 2.6-24.9 [facility] Comment on above: Performed By: #### P SASC, VITAD #### [facility] [address] [place] [address] Dr. Max Peck TESTOSTERONE, TOTALon 2021 Testosterone [Mass/Vol] 766 ng/dL Normal 264-916 [facility] Comment on above: Result Comment: Adul t male reference interval is based on a population of healthy nonobese males (BMI <30) between 19 and 39 years old. yeni Espinal.al. JCEM 2017,102;1823-5595. PMID: [id number]. Performed By: #### P SASC, VITAD #### [facility] [address] [place] [address] Dr. Max Peck CBC AUTO DIFFon 12-28-2021 BASO # 0.0 103/ul Normal 0.0-0.1 [facility] Comment on above: Performed By: #### P SASC, VITAD #### [facility] [address] [place] [address] Dr. Max Peck Basophils/100 WBC (Bld) 0.4 % Normal 0.2-2.0 [facility] Comment on above: Performed By: #### P SASC, VITAD #### [facility] [address] [place] [address] Dr. Max Peck EO # 0.0 103/ul Normal 0.0-0.7 [facility] Comment on above: Performed By: #### P SASC, VITAD #### [facility] [address] [place] [address] Dr. Max Peck Eosinophils/100 WBC (Bld) 0.3 % Critically low 0.9-7.0 [facility] Comment on above: Performed By: #### P SASC, VITAD #### [facility] [address] [place] [address] Dr. Max Peck Erythrocyte distribution width (RBC) [Ratio] 12.5 % Normal 11.0-15.0 [facility] Comment on above: Performed By: #### P SASC, VITAD #### [facility] [address] [place] [address] Dr. Max Peck Hematocrit (Bld) [Volume fraction] 41.5 % Critically low 42.0-54.0 [facility] Comment on above: Performed By: #### P SASC, VITAD #### [facility] [address] [place] [address] Dr. Max Peck Hemoglobin (Bld) [Mass/Vol] 14.0 g/dL Normal 14.0-18.0 [facility] Comment on above: Performed By: #### P SASC, VITAD #### [facility] [address] [place] [address] Dr. Max Peck IG # 0.09 10e3/ul Critically high 0.00-0.03 [facility] Comment on above: Performed By: #### P SASC, VITAD #### [facility] [address] [address] [address] Max Peck IG % 0.9 % Critically high 0.0-0.5 [facility] Comment on above: Performed By: #### P SASC, VITAD #### [facility] [address] [place] [address] Dr. Max Peck LYMPH # 2.6 103/ul Normal 1.2-3.8 [facility] Comment on above: Performed By: #### P SASC, VITAD #### [facility] [address] [place] [address] Dr. Max Peck Lymphocytes/100 WBC (Bld) 25.0 % Normal 20.5-60.0 [facility] Comment on above: Performed By: #### P SASC, VITAD #### [facility] [address] [place] [address] Dr. Max Peck MANUAL DIFF REQ NO Normal [facility] Comment on above: Performed By: #### P SASC, VITAD #### [facility] [address] [place] [address] Dr. Max Peck MCH (RBC) [Entitic mass] 32.6 pg Normal 25.9-34.0 [facility] Comment on above: Performed By: #### P SASC, VITAD #### [facility] [address] [place] [address] Dr. Max Peck MCHC (RBC) [Mass/Vol] 33.7 g/dL Normal 29.9-35.2 [facility] Comment on above: Performed By: #### P SASC, VITAD #### [facility] [address] [place] [address] Dr. Max Peck MCV (RBC) [Entitic vol] 96.7 fL Critically high 80.0-94.0 [facility] Comment on above: Performed By: #### P SASC, VITAD #### [facility] [address] [place] [address] Dr. Max Peck MONO # 1.2 103/ul Critically high 0.3-0.8 [facility] Comment on above: Performed By: #### P BILLYC, VITAD #### [facility] [address] [place] [address] Dr. Max Peck Monocytes/100 WBC (Bld) 11.1 % Normal 1.7-12.0 [facility] Comment on above: Performed By: #### P BILLYC, VITAD #### [facility] [address] [place] [address] Dr. Max Peck NEUT # 6.4 103/ul Normal 1.4-6.5 [facility] Comment on above: Performed By: #### P BILLYC, VITAD #### [facility] [address] [place] [address] Dr. Max Peck Neutrophils/100 WBC (Bld) 62.3 % Normal 43.0-75.0 [facility] Comment on above: Performed By: #### P HUGO, VITAD #### [facility] [address] [place] [address] Dr. Max Peck Platelet mean volume (Bld) [Entitic vol] 9.6 fL Normal 9.5-13.5 [facility] Comment on above: Performed By: #### P HUGO, VITAD #### [facility] [address] [place] [address] Dr. Max Peck PLT 323 103/ul Normal 150-450 [facility] Comment on above: Performed By: #### P BILLYC, VITAD #### [facility] [address] [place] [address] Dr. Max Peck RBC 4.29 106/ul Critically low 4.70-6.10 [facility] Comment on above: Performed By: #### P SASC, VITAD #### [facility] [address] [place] [address] Dr. Max Peck WBC 10.3 103/ul Normal 4.0-11.0 [facility] Comment on above: Performed By: #### P BILLYC, VITAD #### [facility] [address] [address] [address] Max Peck FREE THYROXINE INDEX T7on FTI 2.41 Normal 1.30-4.50 [facility] Comment on above: Performed By: #### T SH, URIC, T7, LIPID, CMP #### [facility] [address] [address] [address] Max Peck T3U 36.0 % Normal 33.0-40.0 [facility] Comment on above: Performed By: #### T SH, URIC, T7, LIPID, CMP #### [facility] [address] [address] [address] Max Peck T4 [Mass/Vol] 6.70 ug/dL Normal 4.50-12.10 [facility] Comment on above: Performed By: #### T SH, URIC, T7, LIPID, CMP #### [facility] [address] [place] [address] Dr. Max Peck GLYCOHEMOGLOBIN A1Con 2021 ADA RECOMMENDATION SEE BELOW Normal [facility] Comment on above: Result Comment: ADA RECOMMENDED LIMIT 4.0 - 6.0 ADA THERAPEUTIC TARGET < 7.0 ACTION SUGGESTED > 7.0 Performed By: #### P HUGO, VITAD #### [facility] [address] [place] [address] Dr. Max Peck Glucose [Mass/Vol] 97 mg/dL Normal [facility] Comment on above: Performed By: #### P BILLYC, VITAD #### [facility] [address] [place] [address] Dr. Max Peck HbA1c (Bld) [Mass fraction] 5.0 % Normal 4.5-6.2 [facility] Comment on above: Performed By: #### P HUGO, VITAD #### [facility] [address] [place] [address] Dr. Max Peck LIPID PROFILEon 12-28-2021 CHOL-HDL RATIO NORM SEE BELOW Normal [facility] Comment on above: Result Comment: 3.3 - 4.4 LOW RISK 4.4 - 7.1 AVERAGE RISK 7.1 - 11.0 MODERATE RISK >11.0 HIGH RISK Performed By: #### T SH, URIC, T7, LIPID, CMP #### [facility] [address] [address] [address] Max Peck Cholesterol [Mass/Vol] 221 mg/dL Critically high <=200 [facility] Comment on above: Performed By: #### T SH, URIC, T7, LIPID, CMP #### [facility] [address] [address] [address] Max Peck Cholesterol in HDL [Mass/Vol] 41 mg/dL Normal 40-60 [facility] Comment on above: Performed By: #### T SH, URIC, T7, LIPID, CMP #### [facility] [address] [address] [address] Max Peck Cholesterol in LDL [Mass/Vol] 157.2 mg/dL Normal [facility] Comment on above: Performed By: #### T SH, URIC, T7, LIPID, CMP #### [facility] [address] [address] [address] Max Peck Cholesterol.total/Cho lesterol in HDL [Mass ratio] 5.4 {ratio} Normal [facility] Comment on above: Performed By: #### T SH, URIC, T7, LIPID, CMP #### [facility] [address] [address] [address] Max Peck HDL NORMAL > or = 60 mg/dl - LO W CARDIOVASCULAR RISK <40 mg/dl - HIGH CARDIOVASCULAR RISK Normal [facility] Comment on above: Performed By: #### T SH, URIC, T7, LIPID, CMP #### [facility] [address] [address] [address] Max Peck LDL CALC NORMAL SEE BELOW Normal [facility] Comment on above: Result Comment: <100 mg/dl OPTIMAL 100 - 129 mg/dl NEAR OR ABOVE OPTIMAL 130 - 159 mg/dl BORDERLINE HIGH 160 - 189 mg/dl HIGH >190 mg/dl VERY HIGH Performed By: #### T SH, URIC, T7, LIPID, CMP #### [facility] [address] [address] [address] Max Peck Triglyceride [Mass/Vol] 114 mg/dL Normal <=150 [facility] Comment on above: Performed By: #### T SH, URIC, T7, LIPID, CMP #### [facility] [address] [address] [address] Max Peck VLDL CALC 22.8 mg/dL Normal [facility] Comment on above: Performed By: #### T SH, URIC, T7, LIPID, CMP #### [facility] [address] [place] [address] Dr. Max Peck PROF 14(COMP METB)on 022 Albumin [Mass/Vol] 3.9 g/dL Normal 3.4-5.0 [facility] Comment on above: Performed By: #### T SH, URIC, T7, LIPID, CMP #### [facility] [address] [place] [address] Dr. Max Peck Albumin/Globulin [Mass ratio] 1.3 {ratio} Normal [facility] Comment on above: Performed By: #### T SH, URIC, T7, LIPID, CMP #### [facility] [address] [place] [address] Dr. Max Peck ALP [Catalytic activity/Vol] 63 U/L Normal 46-116 [facility] Comment on above: Performed By: #### T SH, URIC, T7, LIPID, CMP #### [facility] [address] [place] [address] Dr. Max Peck ALT [Catalytic activity/Vol] 75 U/L Critically high 16-63 [facility] Comment on above: Performed By: #### T SH, URIC, T7, LIPID, CMP #### [facility] [address] [place] [address] Dr. Max Peck Anion gap [Moles/Vol] 8.8 mmol/L Normal [facility] Comment on above: Performed By: #### T SH, URIC, T7, LIPID, CMP #### [facility] [address] [place] [address] Dr. Max Peck AST [Catalytic activity/Vol] 41 U/L Critically high 15-37 [facility] Comment on above: Performed By: #### T SH, URIC, T7, LIPID, CMP #### [facility] [address] [place] [address] Dr. Max Peck Bilirubin [Mass/Vol] 0.8 mg/dL Normal 0.2-1.0 [facility] Comment on above: Performed By: #### T SH, URIC, T7, LIPID, CMP #### [facility] [address] [place] [address] Dr. Max Peck Calcium [Mass/Vol] 9.1 mg/dL Normal 8.5-10.1 [facility] Comment on above: Performed By: #### T SH, URIC, T7, LIPID, CMP #### [facility] [address] [place] [address] Dr. Max Peck Chloride [Moles/Vol] 102 mmol/L Normal 98-107 [facility] Comment on above: Performed By: #### T SH, URIC, T7, LIPID, CMP #### [facility] [address] [place] [address] Dr. Max Peck CO2 [Moles/Vol] 33.8 mmol/L Critically high 21.0-32.0 [facility] Comment on above: Performed By: #### T SH, URIC, T7, LIPID, CMP #### [facility] [address] [place] [address] Dr. Max Peck Creatinine [Mass/Vol] 0.80 mg/dL Normal 0.70-1.30 [facility] Comment on above: Performed By: #### T SH, URIC, T7, LIPID, CMP #### [facility] [address] [place] [address] Dr. Max Peck EGFR-AF STATELESS >60 Normal >=60 [facility] Comment on above: Performed By: #### T SH, URIC, T7, LIPID, CMP #### [facility] [address] [place] [address] Dr. Max Peck EGFR-NON AF STATELESS >60 Normal >=60 [facility] Comment on above: Performed By: #### T SH, URIC, T7, LIPID, CMP #### [facility] [address] [place], [place] [id number] Dr. Max Peck Globulin (S) [Mass/Vol] 2.9 g/dL Normal [facility] Comment on above: Performed By: #### T SH, URIC, T7, LIPID, CMP #### [facility] [address] [place] [address] Dr. Max Peck Glucose [Mass/Vol] 99 mg/dL Normal 74-106 [facility] Comment on above: Performed By: #### T SH, URIC, T7, LIPID, CMP #### [facility] [address] [place] [address] Dr. Max Peck Potassium [Moles/Vol] 3.6 mmol/L Normal 3.5-5.1 [facility] Comment on above: Performed By: #### T SH, URIC, T7, LIPID, CMP #### [facility] [address] [place] [address] Dr. Max Peck Protein [Mass/Vol] 6.8 g/dL Normal 6.4-8.2 [facility] Comment on above: Performed By: #### T SH, URIC, T7, LIPID, CMP #### [facility] [address] [place] [address] Dr. Max Peck Sodium [Moles/Vol] 141 mmol/L Normal 136-145 [facility] Comment on above: Performed By: #### T SH, URIC, T7, LIPID, CMP #### [facility] [address] [place] [address] Dr. Max Peck Urea nitrogen [Mass/Vol] 16.0 mg/dL Normal 7.0-18.0 [facility] Comment on above: Performed By: #### T SH, URIC, T7, LIPID, CMP #### [facility] [address] [place] [address] Dr. Max Peck Urea nitrogen/Creatinine [Mass ratio] 20.0 mg/mg Normal [facility] Comment on above: Performed By: #### T SH, URIC, T7, LIPID, CMP #### [facility] [address] [place] [address] Dr. Max Peck TSHon 12-28-2021 TSH 1.544 uIU/mL Normal 0.358-3.740 [facility] Comment on above: Performed By: #### T SH, URIC, T7, LIPID, CMP #### [facility] [address] [address] [address] Max Peck URIC ACID SERUMon 12-28-2021 Urate [Mass/Vol] 5.4 mg/dL Normal 3.5-7.2 [facility] Comment on above: Performed By: #### T SH, URIC, T7, LIPID, CMP #### [facility] [address], [place] [address] Dr. Max Peck VITAMIN D 25 OHon 12-28-2021 VIT D 25-OH 51.2 ng/mL Normal [facility] Comment on above: Performed By: #### P SASC, VITAD #### [facility] [address] [place] [address] Dr. Max Peck VIT D RANGES SEE BELOW Normal [facility] Comment on above: Result Comment: <20 ng/mL Vit D deficient 20 - <30 ng/mL Vit D insufficient 30 - 100 ng/mL Vit D sufficient >100 ng/mL Potential Toxicity Performed By: #### P SASC, VITAD #### [facility] [address] [address] [address] Max Peck Cardiovascular Lab Reporton 09-01-2020 Cardiovascular Lab Report [facility] Patient Name: Braden Payne [facility] MR #: [id number] Physician: Domenic Ureña MD Department of Service Date: 07/31/2020 Medicine Birthdate: 1955 Division of Room #: CC Cardiology Adult Cardiovascular Services [place] [id number] Cardiovascular Laboratory Report The patient is a gentleman who is known to have significant symptomatic PVCs, who presented for PVC ablation. On the day of presentation, he was noted to have scant PVCs and hence the decision was made to proceed with administration of Isuprel and see whether he had enough PVC to follow with an ablation. However, the patient was brought to the EP lab but he could not lie down because of back pain and hence the procedure was aborted. This will be rescheduled under anesthesia if he continues to have symptomatic PVCs. Electronically Signed by: Domenic Ureña MD 09/01/2020 11:57 A Domenic Ureña MD Date Dict: 09/01/2020/10:26 A/Domenic Ureña MD Date Trans: 09/01/2020 10:51 A/sergio [id number] cc: Ester Craven M.D. [address], [facility] [address] [facility] LUMBAR SPINE 2 OR 3 VIEWSon 05-19-2019 LUMBAR SPINE 2 OR 3 VIEWS STUDY: LUMBAR SPINE 2 OR 3 VIEWS; 05/19/2019 9:49 am INDICATION: PAIN. COMPARISON: None. ACCESSION NUMBER(S): [id number] ORDERING CLINICIAN: Edgar Fairchild FINDINGS: No fracture or subluxation of the lumbar spine. L3-L5 laminectomy defects. Moderate to severe multilevel degenerative disc height loss with endplate sclerosis and osteophyte formation. Multilevel facet arthropathy. Moderate dextroscoliosis centered at L2. IMPRESSION: Severe degenerative changes of the lumbar spine. L3-L5 laminectomy defects. Normal [facility] Vital Signs Date Time Vital Sign Value Performing Clinician Rob witt 10-30-2022 10:15-0400 Blood Pressure Location Shae Guillory [facility] 10-30-2022 10:15-0400 Diastolic blood pressure 92 mm[Hg] Shae Guillory [facility] 10-30-2022 10:15-0400 Heart rate 73 /min Shae Guillory [facility] 10-30-2022 10:15-0400 Systolic blood pressure 145 mm[Hg] Shae Lue [facility] 10-28-2022 06:50-0400 Body height 182.88 cm MD Ester Craven Work Phone: [facility] 10-28-2022 06:50-0400 Body weight 83.91 kg MD Ester Craven Work Phone: [facility] 09-04-2022 07:45-0400 Blood Pressure Location Shae Lue [facility] 09-04-2022 07:45-0400 Diastolic blood pressure 98 mm[Hg] Shae Lue [facility] 09-04-2022 07:45-0400 Heart rate 51 /min Shae Lue [facility] 09-04-2022 07:45-0400 Respiratory rate 16 /min Shae Lue [facility] 09-04-2022 07:45-0400 Systolic blood pressure 175 mm[Hg] Shae Lue [facility] 04-03-2022 15:00-0500 Blood Pressure Location Camryn MOOREL [facility] 04-03-2022 15:00-0500 Diastolic blood pressure 96 mm[Hg] Camryn MOOREL [facility] [place] 04-03-2022 15:00-0500 Heart rate 80 /min Camyrn MOOREL [facility] 04-03-2022 15:00-0500 Respiratory rate 16 /min Camryn MOOREL [facility] [place] 04-03-2022 15:00-0500 Systolic blood pressure 144 mm[Hg] Camryn SNELL [facility] Encounters Encounter Date Encounter Type Care Provider Facility Start: 04-23-2023 ambulatory Shae M. Lue Facility:[facility] Start: 01-08-2023 ambulatory Shae M. Lue Facility:[facility] Start: 12-05-2022 End: 12-06-2022 ambulatory Shae M. Lue Facility:[facility] Start: 12-05-2022 End: 12-05-2022 Patient encounter procedure Shae M. Laurae [facility] Start: 11-27-2022 End: 11-28-2022 ambulatory Shae M. Laruae Facility:[id number] Start: 10-30-2022 End: 10-31-2022 ambulatory Shae M. Lue Facility:[facility] Start: 10-30-2022 End: 10-30-2022 Patient encounter procedure Shae Sancheze [facility] Start: 10-28-2022 End: 10-28-2022 ambulatory Ester Craven Facility:[facility] Start: 10-28-2022 End: 10-28-2022 ambulatory MD Ester Craven Work Phone: [facility] Work Phone: Start: 10-28-2022 End: 10-28-2022 Patient encounter procedure MD Ester Craven Work Phone: [facility] [place] Work Phone: Start: 09-24-2022 ambulatory Camryn SNELL Facility :[facility] Start: 09-04-2022 End: 09-05-2022 ambulatory Sahe M. Lue Facility:[facility] [place] Start: 09-04-2022 End: 09-04-2022 Patient encounter procedure Shae Manning. Lue [facility] Start: 08-26-2022 ambulatory Camryn SNELL Facility:[facility] Start: 08-16-2022 End: 08-17-2022 ambulatory Camryn R NILL Facility:[facility] Start: 05-21-2022 End: 05-21-2022 Patient encounter procedure Camryn R TERESAL [facility] N[facility]/Said [place] Start: 05-07-2022 End: 05-08-2022 ambulatory Camryn R NILL Facility:[facility] Start: 05-07-2022 End: 05-07-2022 Patient encounter procedure Camryn R TERESAL [facility] Surgery N[place]/[facility] [place] Start: 04-29-2022 End: 04-29-2022 ambulatory Camryn SNELL [facility] Start: 04-22-2022 End: 04-23-[address] Ester Craven Facility:[id number] Start: 04-19-2022 End: 04-20-2022 ambulatory Camryn SNELL Facility:[facility] Start: 04-14-2022 Encounter for preprocedural laboratory examination DR CAMRYN SNELL . [facility] Start: 04-11-2022 End: 04-12-2022 Encounter for preprocedural laboratory examination DR WILTON NICHOLE Facility:[facility] Start: 04-11-2022 End: 04-12-[address] WILTON NICHOLE Facility: Start: 04-03-2022 End: 04-04-2022 ambulatory Camryn SNELL Facility:[facility] Start: 04-03-2022 End: 04-03-2022 Patient encounter procedure Camryn MOOREL [facility] N[facility]/Said [facility] Start: 03-16-2022 End: 03-16-2022 ambulatory Edenilson Knight Facility:[facility] Start: 03-06-2022 End: 03-07-[address] ESTER CRAVEN . Facility:[facility] Start: 01-18-2022 End: 01-19-[address] ESTER CRAVEN . Facility:[facility] Start: 01-02-2022 Encounter for genera l adult medical examination without abnormal findings DR ESTER CRAVEN . [facility] Start: 01-01-2022 End: 01-02-[address] ESTER CRAVEN . Facility:[facility] Start: 12-28-2021 End: 12-29-[address] ESTER CRAVEN . Facility:[facility] Start: 12-28-2021 End: 12-29-2021 Encounter for general adult medical examination without abnormal findings DR ESTER CRAVEN . Facility:[facility] Start: 07-31-2020 End: 08-01-2020 ambulatory ESTER CRAVEN Facility:[facility] Procedures Date Procedure Procedure Detail Performing Clinician Start: 11-27-2022 Transperineal needle biopsy of prostate Shae Sanchezakhil Start: 10-28-2022 MR prostate wo/w con MD Ester Craven Work Phone: Start: 04-29-2022 Laparoscopic repair of obstructed hernia of anterior abdominal wall Camryn MOOREL Start: 12-28-2021 PSA screening Edenilson delgado Comment on above: Performed By: #### P [facility], [facility] #### [facility] [address] [place] [address] Dr. Max Peck Start: 03-10-2012 Back structure, excl uding neck (body structure) Camryn MOOREL Start: 03-10-1999 Back structure, excl uding neck (body structure) Camryn MOOREL Start: 03-10-1993 Cholecystectomy Camryn NILL Excision of lesion of skin Nigel pineda VAMSI Comment on above: latter day and shave les on left neck Laminectomy aCmryn MOOREL Comment on above: x 3-- 2012, 20 00 Plan of Treatment Date Care Activity Detail Author [place] Immunizations Immunization Date Immunization Notes Care Provider Fa felisha 12-29-2020 influenza virus vaccine, unspecified formulation Shae Guillory [facility] 12-29-2020 SARS-CoV-2 (COVID-19 ) mRNA BNT-162b2 vax Camryn NILL [facility] [place] 06-09-2020 SARS-CoV-2 (COVID-19 ) mRNA BNT-162b2 vax Camryn NILL [facility] 05-19-2020 SARS-CoV-2 (COVID-19 ) mRNA BNT-162i3 vax Camryn NILL [facility] Comment on above: Result Comment: 2022: [id number] NEGATED: Highlighted row has not occurred!04-03-2022 influenza virus vaccine, unspecified formulation [facility] NEGATED: Highlighted row has not occurred!05-27-2019 influenza virus vaccine, live, attenuated, for intranasal use [facility] Payers Date Payer Category Payer Self-pay 1957 Private Health Insurance [id number] 1955 Unknown [id number] 1955 Unknown [id number] 2.16.840.1.187420.3.579.2.356 1955 Unknown [id number] 2.16.840.1.909485.3.579.2.593 1955 Unknown [id number] 2.840.1.491955.3.579.2.593 1955 Unknown [id number] 2..840.1.829868.3.579.2.593 1955 Unknown [id number] 2.16.840.1.783759.3.579.2.593 1955 Unknown [id number] 2.16.840.1.118038.3.579.2.593 1955 Unknown [id number] 2.16.840.1.389964.3.579.2.593 1955 Unknown [id number] 2.16.840.1.963926.3.579.2.593 1955 Unknown [id number] 2.16.840.1.130186.3.579.2.72 1955 Unknown [id number] 2.16.840.1.181625.3.579.272 1955 Unknown [id number] 2.16.840.1.771363.3.579.272 1955 Unknown [id number] 2.16.840.1.818895.3.579.272 1955 Unknown [id number] 2.16.840.1.949040.3.579.272 1955 Unknown [id number] 2.16.840.1.279188.3.579.272 1955 Unknown [id number] 2.16.840.1.353825.3.579.272 1955 Unknown [id number] 2.16.840.1.602011.3.579.272 1955 Unknown [id number] 2.16.840.1.675461.3.579.2.72 1955 Unknown [id number] 2.16.840.1.533351.3.579.272 1955 Unknown [id number] 2.16.840.1.966109.3.579.2.72 1955 Unknown [id number] 2.16.840.1.000358.3.579.2.727 1955 Unknown [id number] 2.16.840.1.209043.3.579.2.727 Unknown Regular Insurance [id number] Unknown [id number] 2.16.840.1.449445.3.579.2.531 Social History Date Type Detail Facility Start: 04-03-2022 End: 10-30-2022 Tobacco smoking status Never smoked tobacco (finding) [facility] [place] Tobacco smoking status Never Gener [facility] [place] Sex Assigned At Male [facility] Start: 1955 Sex Assigned At Male [facility] Functional Status Date Assessment Result Facility 12-05-2022 Functional Status N/A [facility] 10-30-2022 Functional Status N/A [facility] 09-04-2022 Functional Status No [facility] 04-03-2022 Functional Status N/A [facility] 04-03-2022 to 12-05-2022 Note Date & Type Note Facility 12-05-2022 Hospital Discharge instructions Patient Education 12/05/2022 12:42:33 Prostate Cancer Screening Prostate Cancer Screening Prostate cancer screening is testing that is done to check for the presence of prostate cancer in men. The prostate gland is a walnut-sized gland that is located below the bladder and in front of the rectum in males. The function of the prostate is to add fluid to semen during ejaculation. Prostate cancer is one of the most common types of cancer in men. Who should have prostate cancer screening? Screening recommendations vary based on age and other risk factors, as well as between the professional organizations who make the recommendations. In general, screening is recommended if: You are age 50 to 70 and have an average risk for prostate cancer. You should talk with your health care provider about your need for screening and how often screening should be done. Because most prostate cancers are slow growing and will not cause , screening in this age group is generally reserved for men who have a 10- to 15-year life expectancy. You are younger than age 50, and you have these risk factors: ?Having a father, brother, or uncle who has been diagnosed with prostate cancer. The risk is higher if your family member's cancer occurred at an early age or if you have multiple family members with prostate cancer at an early age. ?Being a male who is Black or is of [place] or sub-Saharan descent. In general, screening is not recommended if: You are younger than age 40. You are between the ages of 40 and 49 and you have no risk factors. You are 70 years of age or older. At this age, the risks that screening can cause are greater than the benefits that it may provide. If you are at high risk for prostate cancer, your health care provider may recommend that you have screenings more often or that you start screening at a younger age. How is screening for prostate cancer done? The recommended prostate cancer screening test is a blood test called the prostate-specific antigen (PSA) test. PSA is a protein that is made in the prostate. As you age, your prostate naturally produces more PSA. Abnormally high PSA levels may be caused by: Prostate cancer. An enlarged prostate that is not caused by cancer (benign prostatic hyperplasia, or BPH). This condition is very common in older men. A prostate gland infection (prostatitis) or urinary tract infection. Certain medicines such as male hormones (like testosterone) or other medicines that raise testosterone levels. A rectal exam may be done as part of prostate cancer screening to help provide information about the size of your prostate gland. When a rectal exam is performed, it should be done after the PSA level is drawn to avoid any effect on the results. Depending on the PSA results, you may need more tests, such as: A physical exam to check the size of your prostate gland, if not done as part of screening. Blood and imaging tests. A procedure to remove tissue samples from your prostate gland for testing (biopsy). This is the only way to know for certain if you have prostate cancer. What are the benefits of prostate cancer screening? Screening can help to identify cancer at an early stage, before symptoms start and when the cancer can be treated more easily. There is a small chance that screening may lower your risk of dying from prostate cancer. The chance is small because prostate cancer is a slow-growing cancer, and most men with prostate cancer from a different cause. What are the risks of prostate cancer screening? The main risk of prostate cancer screening is diagnosing and treating prostate cancer that would never have caused any symptoms or problems. This is called overdiagnosisand overtreatment. PSA screening cannot tell you if your PSA is high due to cancer or a different cause. A prostate biopsy is the only procedure to diagnose prostate cancer. Even the results of a biopsy may not tell you if your cancer needs to be treated. Slow-growing prostate cancer may not need any treatment other than monitoring, so diagnosing and treating it may cause unnecessary stress or other side effects. Questions to ask your health care provider When should I start prostate cancer screening? What is my risk for prostate cancer? How often do I need screening? What type of screening tests do I need? How do I get my test results? What do my results mean? Do I need treatment? Where to find more information The [place] [employer]: www.cancer.org [place] [employer]: www.auanet.org Contact a health care provider if: You have difficulty urinating. You have pain when you urinate or ejaculate. You have blood in your urine or semen. You have pain in your back or in the area of your prostate. Summary Prostate cancer is a common type of cancer in men. The prostate gland is located below the bladder and in front of the rectum. This gland adds fluid to semen during ejaculation. Prostate cancer screening may identify cancer at an early stage, when the cancer can be treated more easily and is less likely to have spread to other areas of the body. The prostate-specific antigen (PSA) test is the recommended screening test for prostate cancer, but it has associated risks. Discuss the risks and benefits of prostate cancer screening with your health care provider. If you are age 70 or older, the risks that screening can cause are greater than the benefits that it may provide. This information is not intended to replace advice given to you by your health care provider. Make sure you discuss any questions you have with your health care provider. Document Revised: 08/20/2021 Document Reviewed: 08/20/2021 [employer] Patient Education 2022 [employer] Follow Up Care 11/27/2022 14:43:00 With:Kahlil JERNIGAN, MARLENA Salmon, URO Address: When: Unknown [facility] 10-30-2022 Hospital Discharge instructions Patient Education 10/30/2022 11:02:30 Prostate Cancer Screening Prostate Cancer Screening Prostate cancer screening is testing that is done to check for the presence of prostate cancer in men. The prostate gland is a walnut-sized gland that is located below the bladder and in front of the rectum in males. The function of the prostate is to add fluid to semen during ejaculation. Prostate cancer is one of the most common types of cancer in men. Who should have prostate cancer screening? Screening recommendations vary based on age and other risk factors, as well as between the professional organizations who make the recommendations. In general, screening is recommended if: You are age 50 to 70 and have an average risk for prostate cancer. You should talk with your health care provider about your need for screening and how often screening should be done. Because most prostate cancers are slow growing and will not cause , screening in this age group is generally reserved for men who have a 10- to 15-year life expectancy. You are younger than age 50, and you have these risk factors: ?Having a father, brother, or uncle who has been diagnosed with prostate cancer. The risk is higher if your family member's cancer occurred at an early age or if you have multiple family members with prostate cancer at an early age. ?Being a male who is Black or is of [place] or sub-Saharan descent. In general, screening is not recommended if: You are younger than age 40. You are between the ages of 40 and 49 and you have no risk factors. You are 70 years of age or older. At this age, the risks that screening can cause are greater than the benefits that it may provide. If you are at high risk for prostate cancer, your health care provider may recommend that you have screenings more often or that you start screening at a younger age. How is screening for prostate cancer done? The recommended prostate cancer screening test is a blood test called the prostate-specific antigen (PSA) test. PSA is a protein that is made in the prostate. As you age, your prostate naturally produces more PSA. Abnormally high PSA levels may be caused by: Prostate cancer. An enlarged prostate that is not caused by cancer (benign prostatic hyperplasia, or BPH). This condition is very common in older men. A prostate gland infection (prostatitis) or urinary tract infection. Certain medicines such as male hormones (like testosterone) or other medicines that raise testosterone levels. A rectal exam may be done as part of prostate cancer screening to help provide information about the size of your prostate gland. When a rectal exam is performed, it should be done after the PSA level is drawn to avoid any effect on the results. Depending on the PSA results, you may need more tests, such as: A physical exam to check the size of your prostate gland, if not done as part of screening. Blood and imaging tests. A procedure to remove tissue samples from your prostate gland for testing (biopsy). This is the only way to know for certain if you have prostate cancer. What are the benefits of prostate cancer screening? Screening can help to identify cancer at an early stage, before symptoms start and when the cancer can be treated more easily. There is a small chance that screening may lower your risk of dying from prostate cancer. The chance is small because prostate cancer is a slow-growing cancer, and most men with prostate cancer from a different cause. What are the risks of prostate cancer screening? The main risk of prostate cancer screening is diagnosing and treating prostate cancer that would never have caused any symptoms or problems. This is called overdiagnosisand overtreatment. PSA screening cannot tell you if your PSA is high due to cancer or a different cause. A prostate biopsy is the only procedure to diagnose prostate cancer. Even the results of a biopsy may not tell you if your cancer needs to be treated. Slow-growing prostate cancer may not need any treatment other than monitoring, so diagnosing and treating it may cause unnecessary stress or other side effects. Questions to ask your health care provider When should I start prostate cancer screening? What is my risk for prostate cancer? How often do I need screening? What type of screening tests do I need? How do I get my test results? What do my results mean? Do I need treatment? Where to find more information The [place] [employer]: www.cancer.org [place] [employer]: www.auanet.org Contact a health care provider if: You have difficulty urinating. You have pain when you urinate or ejaculate. You have blood in your urine or semen. You have pain in your back or in the area of your prostate. Summary Prostate cancer is a common type of cancer in men. The prostate gland is located below the bladder and in front of the rectum. This gland adds fluid to semen during ejaculation. Prostate cancer screening may identify cancer at an early stage, when the cancer can be treated more easily and is less likely to have spread to other areas of the body. The prostate-specific antigen (PSA) test is the recommended screening test for prostate cancer, but it has associated risks. Discuss the risks and benefits of prostate cancer screening with your health care provider. If you are age 70 or older, the risks that screening can cause are greater than the benefits that it may provide. This information is not intended to replace advice given to you by your health care provider. Make sure you discuss any questions you have with your health care provider. Document Revised: 08/20/2021 Document Reviewed: 08/20/2021 [employer] Patient Education 2022 [employer]. Follow Up Care 09/04/2022 08:48:35 With:Kahlil JERNIGAN, MARLENA Salmon, URO Address: When:Within 2 Month(s) Comments:w/NINA [facility] Hospital Discharge instructions Patient Education 09/04/2022 08:36:45 Prostate Cancer Screening Prostate Cancer Screening Prostate cancer screening is testing that is done to check for the presence of prostate cancer in men. The prostate gland is a walnut-sized gland that is located below the bladder and in front of the rectum in males. The function of the prostate is to add fluid to semen during ejaculation. Prostate cancer is one of the most common types of cancer in men. Who should have prostate cancer screening? Screening recommendations vary based on age and other risk factors, as well as between the professional organizations who make the recommendations. In general, screening is recommended if: You are age 50 to 70 and have an average risk for prostate cancer. You should talk with your health care provider about your need for screening and how often screening should be done. Because most prostate cancers are slow growing and will not cause , screening in this age group is generally reserved for men who have a 10- to 15-year life expectancy. You are younger than age 50, and you have these risk factors: ?Having a father, brother, or uncle who has been diagnosed with prostate cancer. The risk is higher if your family member's cancer occurred at an early age or if you have multiple family members with prostate cancer at an early age. ?Being a male who is Black or is of [place] or sub-Saharan descent. In general, screening is not recommended if: You are younger than age 40. You are between the ages of 40 and 49 and you have no risk factors. You are 70 years of age or older. At this age, the risks that screening can cause are greater than the benefits that it may provide. If you are at high risk for prostate cancer, your health care provider may recommend that you have screenings more often or that you start screening at a younger age. How is screening for prostate cancer done? The recommended prostate cancer screening test is a blood test called the prostate-specific antigen (PSA) test. PSA is a protein that is made in the prostate. As you age, your prostate naturally produces more PSA. Abnormally high PSA levels may be caused by: Prostate cancer. An enlarged prostate that is not caused by cancer (benign prostatic hyperplasia, or BPH). This condition is very common in older men. A prostate gland infection (prostatitis) or urinary tract infection. Certain medicines such as male hormones (like testosterone) or other medicines that raise testosterone levels. A rectal exam may be done as part of prostate cancer screening to help provide information about the size of your prostate gland. When a rectal exam is performed, it should be done after the PSA level is drawn to avoid any effect on the results. Depending on the PSA results, you may need more tests, such as: A physical exam to check the size of your prostate gland, if not done as part of screening. Blood and imaging tests. A procedure to remove tissue samples from your prostate gland for testing (biopsy). This is the only way to know for certain if you have prostate cancer. What are the benefits of prostate cancer screening? Screening can help to identify cancer at an early stage, before symptoms start and when the cancer can be treated more easily. There is a small chance that screening may lower your risk of dying from prostate cancer. The chance is small because prostate cancer is a slow-growing cancer, and most men with prostate cancer from a different cause. What are the risks of prostate cancer screening? The main risk of prostate cancer screening is diagnosing and treating prostate cancer that would never have caused any symptoms or problems. This is called overdiagnosisand overtreatment. PSA screening cannot tell you if your PSA is high due to cancer or a different cause. A prostate biopsy is the only procedure to diagnose prostate cancer. Even the results of a biopsy may not tell you if your cancer needs to be treated. Slow-growing prostate cancer may not need any treatment other than monitoring, so diagnosing and treating it may cause unnecessary stress or other side effects. Questions to ask your health care provider When should I start prostate cancer screening? What is my risk for prostate cancer? How often do I need screening? What type of screening tests do I need? How do I get my test results? What do my results mean? Do I need treatment? Where to find more information The [place] [employer]: www.cancer.org [place] [employer]: www.auanet.org Contact a health care provider if: You have difficulty urinating. You have pain when you urinate or ejaculate. You have blood in your urine or semen. You have pain in your back or in the area of your prostate. Summary Prostate cancer is a common type of cancer in men. The prostate gland is located below the bladder and in front of the rectum. This gland adds fluid to semen during ejaculation. Prostate cancer screening may identify cancer at an early stage, when the cancer can be treated more easily and is less likely to have spread to other areas of the body. The prostate-specific antigen (PSA) test is the recommended screening test for prostate cancer, but it has associated risks. Discuss the risks and benefits of prostate cancer screening with your health care provider. If you are age 70 or older, the risks that screening can cause are greater than the benefits that it may provide. This information is not intended to replace advice given to you by your health care provider. Make sure you discuss any questions you have with your health care provider. Document Revised: 08/20/2021 Document Reviewed: 08/20/2021 [employer] Patient Education 2022 Med.ly. Follow Up Care 08/26/2022 10:02:45 With:Kahlil JERNIGAN, MARLENA Salmon, URO Address: When:Within 4 Week(s) Comments:w/ PSA [facility] 05-07-2022 Hospital Discharge instructions Follow Up Care 05/07/2022 15:08:01 With:VAMSI JERNIGAN, OJ Kraus Address: [address] [place] [id number] When: only if needed General Surgery [place] 04-29-2022 Note Patient: LISETTE PAYNE Age: 67 years Sex: Male : 1955 Associated Diagnoses: None Author: Camryn SNELL MD Subjective no changes to [facility] Comment on above: Result Comment: Elec tronically Signed By: Camryn SNELL MD\.br\Date and Time Signed: 04/29/22 08:33 EST 04-16-2022 Note [id number]:[id number] [facility] 04-03-2022 Note Chief Complaint consultation for ventral hernia HPI Staff 67 year old male presents on consultation from [place] ED for ventral hernia. Presented to ED 03/16 with complaint of LUQ pain and bulge. Had intermittent cough at time of ED visit. Reports bulge has been intermittent since ED visit. He wears a belt around his abdomen which he believes helps with bulge and discomfort. Reports intermittent nausea when bulge is more pronounced. Denies vomiting. Bowels moving well. No imaging completed. History of Present Illness 67 yo male with h/o htn, lumbar radiculopathy, h/o SVT, referred from [facility] ED for possible abd wall hernia; was seen in ED 03/16/22 fro LUQ pain and abd wall bulge, reportedly bulge was reduced and pain resolved; patient reports no h/o previous bulge; only abdominal operation LS cholecystectomy; now reports intermittent bulge that is sore, patient can reduce area, no skin changes, no N/V; no bowel changes; no imaging studies; no tobacco use. Review of Systems PHQ Score Initial Depression Screen Score: 0 ROS - Provider Constitutional: no fever, no sweats, no weight loss. Eyes: no glasses, no blurred vision, no visual loss. ENMT: no dentures, no hoarseness, no swallowing difficulties, no hearing loss, no ear infection(s), no nose bleeds. Cardiovascular: normal blood pressure, no chest pain, regular heartbeat, no heart murmur. Respiratory: no shortness of breath, no cough, no asthma, no wheezing. Gastrointestinal: no nausea, no vomiting, no diarrhea, no constipation, no blood in stool, no change in bowel habits, yes abdominal pain, no hepatitis. Genitourinary: no kidney stones, no urine infection, no dysuria. Musculoskeletal: no pain, no weakness. Skin: no changing moles, no rash, no skin lumps. Neurologic: no seizures, no epilepsy, no headache. Psychiatric: no emotional or psychiatric problem. Heme/Lymph: no bleeding problems, no anemia, no blood clots, no transfusions. Allergy/Immunologic: no swollen lymph nodes/glands, no IV drug abuse. Other: Additional ROS info: Except as noted in the above Review of Systems and in the History of Present Illness, all other systems have been reviewed and are negative or noncontributory. Physical Exam Vitals & Measurements HR: 80(Peripheral) RR: 16 BP: 144/96 HT: 72 in HT: 182.9 cm WT: 89 kg WT: 195.8 lb BMI: 26.6 HEENT: normal conjunctiva, sclera clear, no scleral icterus, EOM intact, PERRLA, oral mucosa moist without lesions. Neck: trachea midline, no mass, symmetric, no thyromegaly or nodules, no adenopathy Respiratory: lungs CTA, respirations non labored. Cardiovascular: regular rate and rhythm, no murmur, no pedal edema or varicosities. Gastrointestinal: obese, soft, non distended, no tenderness, no masses, no reducible epigastric hernia, only noted on standing, unable to palpate size of defect; diastasis recti yes, no hepatosplenomegaly; normal bs Lymphatic: no cervical adenopathy, no supraclavicular adenopathy Musculoskeletal: normal gait, digits and nails without infection, nodes, cyanosis, clubbing. Skin: no rashes, no lesions, no ulcers, no subcutaneous nodules, induration. Psychiatric/Neuro: oriented to time, place, person, judgement normal, affect appropriate for age, insight intact, no focal deficits. Tests: , review of old records completed, Discussed surgical options, risks, and possible complications with patient. Assessment/Plan 1. Hernia, epigastric (K43.9: Ventral hernia without obstruction or gangrene) small, possible port site hernia from cholecystectomy; will check abd ct scan with contrast to evaluate size of defect and degree of diastasis, may be eligible for primary repair, verses robotic-assisted herniorrhaphy with mesh insertion. will call patient with ct scan results; call sooner if problems/questions. 2. 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 Medications acetaminophen-hydrocodone 300 mg-5 mg oral tablet, 1 tab(s), Oral, q8hr, Not taking carvedilol 25 mg Tab, 25 mg= 1 tab(s), Oral, BID isoniazid 300 mg Tab, 300 mg= 1 tab(s), Oral, Daily, Not taking lisinopril 20 mg Tab, 20 mg= 1 tab(s), Oral, Daily magnesium oxide 400 mg Tab, 400 mg= 1 tab(s), Oral, Daily, Not taki (more content not included)... [facility] Comment on above: Result Comment: Elec tronically Signed By: Camryn SNELL MD\.br\Date and Time Signed: 04/03/22 16:28 EST Evaluation + Plan note No data available for this section General Surgery [place] Evaluation + Plan note Future Appointments Appointment Date:05/21/2022 02:40:00 PM Scheduled Provider:Camryn SNELL MD Location:[facility] Appointment Type: Post Op 15 General Surgery [place] Evaluation + Plan note Future Appointments Appointment Date:09/24/2022 01:40:00 PM Scheduled Provider:Camryn SNELL MD Location:[facility] Appointment Type:GS Established 15 Appointment Date:09/25/2022 08:45:00 AM Scheduled Provider:Shae Guillory MD Location:[facility] Appointment Type:URO Office Visit Diagnostic Tests PendingPSA Total 09/04/22PSA Free & Total 09/04/22 [facility] [place] Evaluation + Plan note Future Appointments Appointment Date:01/08/2023 09:00:00 AM Scheduled Provider:Shae Guillory MD Location:[facility] Appointment Type:URO Office Visit Diagnostic Tests PendingPSA Free & Total 10/30/22 [facility] Future Appointments Appointment Date:04/23/2023 09:45:00 AM Scheduled Provider:Shae Guillory MD Location:[facility] Appointment Type:URO Office Visit Diagnostic Tests PendingPSA Free & Total 12/05/22 [facility] [place] Evaluation note No assessment inform ation available [facility] Work Phone: Hospital Discharge instructions No data available for this section General Surgery [place] Progress note No data available for this section General Surgery [facility] Summary Purpose Family History No Family History Records FoundNo Family History Records FoundNo Family History Records FoundNo Family History Records FoundNo Family History Records Found No data available for this section No Family History Records Found Advance Directives No Advanced Directives Records Found Advance Directive Response Recorded Date/ Time Advance Directives No October 01 3:21pm Chief Complaint and Reason for Visit Chief Complaint r97.20 Additional Source Comments (unrecognized sect ion and content) No Status Records FoundNo Status Records FoundNo Status Records FoundNo Status Records FoundNo Status Records FoundNo Status Records Found INFORMATION SOURCE (unrecogn ized section and content) DATE CREATED AUTHOR 05/16/2020 [facility] DATE CREATED AUTHOR AUTHOR'S ORGANIZ ATION 09/06/2020 [facility] DATE CREATED AUTHOR AUTHOR'S ORGANIZ ATION 05/18/2022 [facility] DATE CREATED AUTHOR AUTHOR'S ORGANIZ ATION 06/13/2022 [facility] DATE CREATED AUTHOR AUTHOR'S ORGANIZ ATION 11/06/2022 [facility] DATE CREATED AUTHOR AUTHOR'S ORGANIZ ATION 01/01/2023 [facility] Patient Care team informatio n (unrecognized section and content) Team Status: Active Member Role Status Dates Ester Craven MD Primary Care Provider Active Team Status: Inactive Member Role Status Dates Ester Craven MD Primary Care Provider Active Shae Guillory MD Attending Provider Active Goals (unrecognized section and content) Goals may be documented in a n alternate section FOR RECORDS PERTAINING TO PATIENTS WHO ARE OR HAVE BEEN ENROLLED IN A CHEMICAL DEPENDENCY/SUBSTANCEABUSE PROGRAM, SOME INFORMATION MAY BE OMITTED. This clinical summary was aggregated from multiple sources. Caution should be exercised in using it in the provision of clinical care. This summary normalizes information from multiple sources, and as a consequence, information in this document may materially change the coding, format and clinical context of patient data. In addition, data may be omitted in some cases. CLINICAL DECISIONS SHOULD BE BASED ON THE PRIMARY CLINICAL RECORDS. [employer] provides no warranty or guarantee of the accuracy or completeness of information in this document.
[2023-03-07 04:07] LABS: PSA, Free 0.18 ng/mL; Prostate Specific Ag 0.4 ng/mL (0.0-4.0)
== END 2023-03-06 08:07 | disposition home or self-care (01) ==
LOC: LAB 08:07
PROVIDERS: PCP Family Medicine; Visit Provider Urology
DX: R97.20 Elevated prostate specific antigen [PSA] (principal)
CPT/HCPCS: 36415; 84153; 84154

== ENCOUNTER 2023-03-20 10:00 | Outpatient (RCR) | payer OTHER, SELFPAY | END 2023-04-12 13:59 | disposition home or self-care (01) | LOC: PT 10:00 | PROVIDERS: PCP Family Medicine | DX: M21.379 Foot drop, unspecified foot (principal); R26.9 Unspecified abnormalities of gait and mobility; R26.89 Other abnormalities of gait and mobility | CPT/HCPCS: 97032; 97110; 97162 ==

== ENCOUNTER 2023-03-31 09:07 | Outpatient (REF) | payer OTHER, SELFPAY ==
--- OUTSIDE RECORDS SUMMARY | 2023-03-31 09:13 | XMS_ITS | CCD ---
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 Attending Unavailable Shae Guillory. Attending Unavailable Ester Craven Referring Unavailable Shae Guillory. Attending Unavailable Shae Guillory Attending Unavailable Shae Guillory Attending Unavailable NILL, Camryn R Admitting Unavailable NILL, Camryn R Attending Unavailable NILL, Camryn R Referring Unavailable NILL, Camryn R Attending Unavailable NILL, Camryn R Referring Unavailable NILL, Camryn R Admitting Unavailable Ester Craven MD Primary Care Provider [phone] Allergies Allergy Classification Reported Allergen(s) Allergy Type Date of Onset Reaction(s) Facility Penicillins (antibiotic) (1 source) Penicillins Drug Allergy 1 [facility] Repository (7 sources) Penicillin; Translations: [penicillin] Drug Allergy Eruption of skin (disorder) [facility] [place] (1 source) Penicillins Drug allergy (disorder) 3 [facility] Repository (1 source) Unable to Assess Drug allergy (disorder) 3 [facility] Repository (1 source) No Known Medication Allergies; Translations: [No Known Medication Allergies] Propensity to adverse reactions (disorder) [facility] Repository (1 source) Penicillins Propensity to adverse reactions 7 Rash [facility] Medications Current Medications Medication Drug Class(es) Dates [...] Status: Ordered lisinopril 20 mg oral tablet (2 sources) Angiotensin Converting Enzyme Inhibitor Start: 04-03-2022 take 1 tablet by mouth once daily lisinopril 20 mg Tab 20 mg = 1 tab(s), Oral, Daily, Refills(s) 0 Start Date: 04/03/22 Status: Ordered Start: 07-04-2006 take 1 tablet by raya th once daily lisinopril 10 mg ORAL Tab Take one(1) tablet daily. 0 07/04/2006 Active Comment on above: Take one(1) tablet d aily. magnesium oxide 400 mg oral tablet (6 sources) Start: 09-27-19 take 1 tablet by mouth once daily magnesium oxide 400 mg Tab 400 mg = 1 tab(s), Oral, Daily, Refills(s) 0, Prophylaxis Start Date: 09/26/20 Status: Ordered sildenafil 100 mg oral tablet (2 sources) Phosphodiesterase 5 Inhibitor Start: 09-12-19 take 1 tablet by mouth once daily as needed sildenafil 100 mg Tab 100 mg = 1 tab(s), Oral, Daily, PRN as needed, Refills(s) 0 Start Date: 09/11/22 Status: Ordered tiZANidine 4 mg oral tablet (6 sources) Central alpha-2 Adrenergic Agonist Start: 04-03-19 take 2 tablets by mouth at bedtime tiZANidine 4 mg Tab 8 mg = 2 tab(s), Oral, Bedtime, Refills(s) 0, Insomnia Start Date: 04/03/22 Status: Ordered turmeric extract 500 mg oral capsule (5 sources) Start: 04-22-19 take 1 capsule by mouth once daily turmeric 500 mg oral capsule 500 mg = 1 cap(s), Oral, Daily, Prophylaxis Start Date: 04/22/22 Status: Ordered Completed/Discontinued Medications Medication Drug Class(es) Dates Sig (Normalized) Sig (Original) fluorouracil 50 mg/ml topical cream (1 source) Nucleoside Metabolic Inhibitor Start: 07-04-2006 Fluorouracil 5 % TOPICAL Crea bid 15 days R and L lat face to behind ears as discussed--wait 2 wk before starting 45gm 0 07/04/2006 Active Comment on above: bid 15 days R and L lat face to behind ears as discussed--wait 2 wk before starting Problems Active Problems Problem Classification Problem Date Documented Date [...] lower urinary tract symptoms] Onset: 09-04-2022 Chronic Other and unspecified benign neoplasm (6 sources) [...] Spondylosis; intervertebral disc disorders; other back problems (13 sources) Lumbar radiculopathy; Translations: [Radiculopathy, cervical region] Onset: 01-18-2022 09-26-2020 Episodic Unclassified (6 sources) Patient encounter status 09-28-2020 Varicose veins of lower extremity (2 sources) Varicose veins of lower extremity 09-11-2022 Episodic Past or Other Problems Problem Classification Problem Date Documented Da te Episodic/Chronic Neoplasms of unspecified nature or uncertain behavior (7 sources) Neoplasm of uncertain behavior of skin; Translations: [Neoplasm of uncertain behavior of skin] Onset: 08-05-2008 05-27-2019 Episodic Other and unspecified benign neoplasm (2 sources) Benign neoplasm of skin; Translations: [Other benign neoplasm of skin, unspecified] Onset: 08-05-2008 08-05-2008 Episodic Other skin disorders (1 source) Seborrheic keratosis; Translations: [Other seborrheic keratosis] Onset: 09-08-2008 09-08-2008 Episodic Results Test Name Value Interpretation Reference Range Facility [facility] 03-07-2023 Lab Reports [id number]#1 .00TIFF [facility] Reminderson 12-31-2022 Reminders - From: Marika Roberson To: EU - Recalls Lue; Sent: 10/30/2022 12:50:59 EDT Show up: 11/30/2022 12:50:00 EDT Subject: Reminder Message Due Date/Time: 12/30/2022 12:50:00 EDT Pt is to get PSA prior to f/u appt. Order was given to pt. Patient was seen in office 12/05/22 [facility] 12-23-2022 Lab Reports [id number]#1 .00TIFF [facility] Formson 12-06-2022 Forms [id number]#1 .00CD:127 [facility] Pathology Noteon 12-06-2022 Pathology Note [id number]# 1.00CD:127 [facility] Screenson 12-06-2022 Screens [id number]# 1.00CD:127 [facility] Screens [id number]#1 .00CD:127 [facility] Patient Educationon 12-06-19 Patient Education Oncology Prostate [...] Where to find more information ? The [place] [employer]: www.cancer.org ? [place] [employer]: www.auanet.org Contact a health care [...] adds flu (more content not included)... [facility] Urology Office/Clinic Noteon 12-05-2022 Urology Office/Clinic Note [...] member today. SINDY 14 (15). CT ab w04/11/22 - shows a fat filled ventral hernia approx 5.3 x 5.1 cm in diameter and 1.2cm in thickness protruding through a 1cm wide neck, midway between sternal xiphoid and umbilicus. 1. Elevated PSA (R97.20: Elevated prostate specific antigen [PSA]) PSA: 06/07/19 - 0.54 10/23/20 - 0.58 10/21/22 - 0.69. Testosterone - 766. 08/20/22 - 7.3 & 10% 09/18/22 - 4.5 & 13%. PSAD 0.14. GALILEA 09/04/22 - moderately enlarged prostate, no hard nodule observed, Rt side a little higher then Lt side, non tender [1]. Select MDX 09/04/22 - 44% likelihood of prostate cancer upon bx. and 17% likelihood of detecting Calliham scores >=7 cancer. MRI of prostate 10/28/22 [...] 12/05/2022 13:23:09. . Documentation recorded by the scribakhil, Mary Marino, accurately reflects the services(s) I performed and decisions made by me. Authenticated by Dr. Guillory on 12/05/2022 13:40:23. Problem List/Past Medical History Ongoing BMI 26.0-26.9,adult BPH with obstruction/lower urinary tract symptoms Cervical radiculopathy Diverticular disease Diverticulosis Elevated PSA Epigastric pain Gross hematur (more content not included)... [facility] Comment on above: Result Comment: Elec tronically Signed By: aKhlil JERNIGAN, Shae Powell\.br\Date and Time Signed: 12/05/22 13:41 EDT\.br\Electronically Co-Signed By: Mary Marino\.br\Date and Time Co-Signed: 12/05/22 13:23 EDT Operative Reporton Operative Report [id number]#1 .00CD:127 [facility] 11-20-2022 Lab Reports [id number]#1. 00CD:127 [facility] Insurance Correspondenceon 0 11-04-2022 Insurance Correspondence [id number]# 1.00CD:127 [facility] Formson 10-31-2022 Forms [id number]# 1.00CD:127 [facility] Forms [id number]#1 .00CD:127 [facility] Ambulatory Visit Summaryon 0 10-30-2022 Ambulatory Visit [...] Follow-Up Appointments Friday 9:00 AM EDT With: Kahlil JERNIGAN, Shae Powell Where: [facility] Patient Educationon 10-31-19 Patient Education Oncology Prostate [...] Where to find more information ? The [place] [employer]: www.cancer.org ? [place] [employer]: www.auanet.org Contact a health care [...] adds flu (more content not included)... [facility] RAD - MRI Reporton RAD - MRI Report [id number]#1 .00CD:127 [facility] Urology Office/Clinic Noteon 10-30-2022 Urology Office/Clinic Note [...] follow up of elevated PSA. CT ab 04/11/22 - shows a fat [...] upon bx. and 17% likelihood of detecting Calliham scores >=7 cancer. MRI Prostate wo/w Con [...] blood and infection. IPSS 1(9), QoL 1(3), SINDY 15(13) 09/04/22- PVR 13 ml Difficulty voiding, [...] Follow-up With When Contact Information Kahlil JERNIGAN, MARLENA [place], URO In 2 months Additional Instructions: w/PSA Patient Education Prostate Cancer Screen (more content not included)... [facility] Comment on above: Result Comment: Elec tronically Signed By: Kahlil JERNIGAN, Shae Powell\.br\Date and Time Signed: 10/30/22 18:20 EDT\.br\Electronically Co-Signed By: Marika Roberson\.br\Date and Time Co-Signed: 10/30/22 11:03 EDT Creatinine (Bld) [Mass/Vol]O rdered By: Shae Guillory on 10-28-2022 Creatinine [Mass/Vol] 1.0 mg/dL 0.6-1.3 [facility] Comment on above: ER/ESD physician is notified/shown all ISTAT results.Critical values may be confirmed by laboratory testing ifdeemed necessary by ER attending doctor. MR prostate wo/w conon 10-28 MR prostate wo/w con [facility] Main [place] [address] [place] [address] MRI Report Signed Patient: Braden Payne MR#: [id number] : 1955 Acct:[id number] Age/Sex: 67 / M ADM Date: 10/28/22 Loc: MR Room: Type: [facility] Attending Dr: Shae Guillory MD Copies to: [...] changes. Impression dictated by: James Pisano Jr., D.O.10/28/2022 1:56 PM Dictation Location: [facility]15 Transcribed By: [facility] 10/28/22 1356 Dictated By: James Pisano Jr, DO 10/28/22 1351 Signed By: 10/28/22 1356 [facility] 10-20-2022 Lab Reports [id number]#1 .00CD:127 [facility] Reminderson 10-16-2022 Reminders - From: Marika Roberson To: ALFRED - Jay Guillory; Sent: 09/04/2022 08:35:23 EDT Show up: 10/02/2022 [...] w/r Lue 10/30/22 to review results. 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 The [place] [employer]: www.cancer.org ? [place] [employer]: www.auanet.org Contact a health care [...] adds flu (more content not included)... [facility] Physician Referralon 023 Physician Referral [id number]#1 .00CD:127 [facility] Screenson 09-04-2022 Screens [id number]#1 .00CD:127 [facility] Screens [id number]#1 .00CD:127 [facility] Urology Office/Clinic Noteon 09-04-2022 Urology Office/Clinic Note Chief Complaint elevated psa HPI Staff Evaluation requested by Dr Ester Craven due to elevated PSA. Pt is a new pt, never before seen in our office. PSA 06/07/19- 0.54 PSA 10/23/20- 0.58 PSA 12/28/21- 0.69 PSA F/T 08/20/22- 7.3 & 9.7% CT ab w/ 04/11/22 Painful urination: no Blood in urine: [...] pt evaluation of elevated PSA. CT ab w04/11/22 - [...] With When Contact Information Kahlil JERNIGAN, Shae Powell URLew, URO In 4 weeks Additional Instructions: w/ PSA Patient Education Prostate Cancer Screening I, Marika Roberson, personally scribed for Dr. Guillory on 09/04/2022 08:37:41. . Documentation recorded by the scri (more content not included)... [facility] Comment on above: Result Comment: Elec tronically Signed By: Kahlil JERNIGAN, Shae Powell\.br\Date and Time Signed: 09/04/22 21:05 EDT\.br\Electronically Co-Signed By: Marika Roberson\.br\Date and Time Co-Signed: 09/04/22 08:38 EDT [facility] 09-01-2022 Lab Reports [id number]#1 .00CD:127 [facility] Physician Referralon 023 Physician Referral [id number]#1 .00CD:127 [facility] Provider Letter FTMCon 06-03 Provider Letter [facility] June 03, 2022 BRADEN PAYNE [address] [place] [id number] BRADEN PAYNE 1955 To Whom It May Concern, The above named person may return to work without restrictions 06/03/22. Sincerely, Dr. Camryn Snell MD General Surgery [facility] Ambulatory Visit Summaryon 0 05-21-2022 Ambulatory Visit Summary BRADEN PAYNE :1955 Visit Date:05/21/2022 Ambulatory Visit Instructions Your Diagnosis [...] obstructed ventral hernia (04/29/2022), Back (03/10/2012), Back (2000), Cholecystectomy (03/10/1993), Excision of lesion of skin, Laminectomy. What to do next You Need to Schedule the Following Appointments Follow Up with VAMSI JERNIGAN, OJ Kraus When: Only if needed Where: [address] [facility] [place] [address]- Medications What How Much When Instructions Unchanged [...] SVT (supraventricular tachycardia) Ventricular premature contractions [facility] General Surgery Office/Clini c Noteon 05-21-2022 General [...] VAMSI JERNIGAN, OJ Kraus Only if needed [address] [place] [address]- Additional Instructions: Problem List/Past Medical [...] trivalent - Not Given Patient Refuses [facility] Comment on above: Result Comment: Elec tronically Signed By: VAMSI JERNIGAN, Camryn Baker\Date and Time Signed: 05/21/22 15:01 EDT Coding Summary.on 05-15-2022 Coding Summary. CD:[id number] G h0bWw+PGhlYWQ+TD5ZVCM xX56hqHZhlO3eR0TOYSlA SywgQVBQTElOSyIgbmFtZ E1aeITsQVHn IC8+WM3yCLEtBgudeMIdh 9Z9rUN4T27qsc1qMLcyjV Y8FAMxCuYzocnfl8asaOd 6IDcuNmluOyBt LCUkkO77VVO9lF83Uw38s EWlrYPrb9zxzBx9PyFrPS SjLIZ6dEawOUvxy7WhRFD xA50vqXQwy8K0 EPDpeEvbqMTbViIarJG5c Z6hQKkzmvenp5kjnfsqCo q7mh82iYDme5T2fYL6N3E uiqE3EFMitFRf AcytuRRLlB3eduzis5yli jfoAgFaIIUaOSz3ETp1BO TwzFajRqZkPI53AAN4EYB xvjEfB3FnCDNr kGfnFrB8d6W4Cm2KN8ERA groV9CRHKPGVXdypRB+PC 30xl16Y3GkCblhZsw0MTM rPZV3kBM3yA7k SYYfZFrxf3N6mID4G1Xdr lCtmu7bo6pmEUDiDEinK3 2qqZOqs6X0JUGuzND8WTE rlAqyHdYvuW43 Oyc+CVVayFdfe1KyInohr 3jzx4cdwBc0SfewXTKuvt AwlXozKXV0a9BkMi1uKEH inMG1fKY6kO7f FlJqWgJ1CHyfZ363CbNuj CWzWzzpX38oD4YadIX+PH ZzXxt7PBGreAsmOJ5aP2B hZGRpbmctbGVm tEisSF7rQFSbubwmZODww I0fNRVoI9i9SnKwLcE3PI tsV6RdSZHoqbqhAp05fG7 sHyZcPqZ2SVmx J8IojqY3SXQyjMHjKWbuD CB9E83uv7Y0FDZnTTXfBN N7zZB2oI0ltPuarfappLY mdDsgdmVydGlj YSzaPFciD913RQVhbNvrI kNvZGluZyBEYXRlOiAgMD MvMDgvMjAyMzwvdGQ+PHR mRLD4iZyhOBQb kEImJMqpBa5klAqcsRifM R6cDKVjsopkDAJtsI8nZC QffLFhmSupYM4cUMMcvuz fn349FkOlGAR3 DJWerZBpG2CpkZ0eKsRhB QDpZXLuN7StlQPmEUroU9 92SUxmJaE6KFFkkmYoV0P sLWFsaWduOiB0 c9W8Rv5Nh6ZentylL4Aen VAiWmZlPbbvDYz1D9PfUv wvdHI+PY00CPBdYU87ZZv 2TCA4yWdlHKcl XETbL5JujU1qXzWmZYIuL GRkOyc+PHRhYmxlIHdpZH RoPScxMDAlJyBzdHlsZT0 nFk1yCFSgPELv mDuvtPOuRaGrw4eyMZZfR VspPK5waVxqS1YglDO1BV Uoq0s0Nk40Z82kG5WplOW +RMAukSX6cLP1 iJ1xKzBqLwH1LLwhG277T jYnlHGvCvako8drk3qgvK z9XeJ1OPCtfzLfdFqjGXN 0u7LgXb42Q94g IHdpZHRoPSIxNSUiIHZhb Drfvx4hrF7hUs3+PGNvbC Q6lPS8yC8eNxUrYrO5HLa pH342ArXujMWp Barzh9eqa0orgFu0CjYvM DIhsjNupGgnATV8m6MxNg 25H7OisRqrl1LqZem0jv2 2vPCco4L2mVC2 B0EcHDDkfxmkrILxmKuxA E8aTJSbgharKGUuxE0lGS ZzJ2q2ZdTjHxZ3MPwfS1U lriO8QPMrlAGh PRVqdWJDlQ7knxxey1ygp oktOaFmNIVkBDp7NXq8VK GswLipToVySAJ6MzT9DUL 8dFAfhW2haUpo nluagF5fImc+LKN5zFYzg JTHQR2lAzmcpXS+PHRkIH C7iHaqNDvmYVZdcY7rJRC iQ1u8BmQeVaD6 PLasX2FvvtX1KYIwbBFkH KDvqGYBsN9hiovlh1dyme xcBlRjKHRiFCi6LAa7EHF saWduOiBsZWZ0 HyV2FHF4iIMpfG4eaWdqp bhnyI4cHll+QmlydGggRG R4FAc5V2FyRrw4UHJtgSi wVL8hgPPnPYrl Pf1waLepwXzhLH7lKMUbg qciw126TxPiu2yuZQZowH UtTLjgKVZ7Y54qq6K0KVZ pHKTkJLL0bIF6 hQ7qgHnmwxkaqEOghAgzm wWouNvqDMlmDAefK332EZ GpuFxgCwGwVNz8I5RdYcs 6WSRtpTmgRP1p qLKjQTyyYg7gaAlztGikI S4jAAEyrpcyx396BnZdy2 fbMSQydMVhWKfqDHQ2V94 nx8M9SNIuTTZc PYI7zBQ7mD2xhItlvpzhr GVmdDsgdmVydGljYWwtYW vuM029NOAmcMqbCfTziJy 6G9NwHow1UBQv xKsrJZ9pyPNkNPzjPb5sa IzczBzcUQ5kHXGpkgqny5 60ZfXnx5evTDCdfAVdKSl jNFC7Q63yu1E5 GZZeVIOdDYW6gBD7zB8rd GlnbjogbGVmdDsgdmVydG ipUMgxTXclU584LMLcrUt nPlBhdGllbnQg HBrhNWd4A4BiKjdulAV+P R30PTQbKT96gHQehZFwt7 nvfTe9KiEqRGMnDUS6iJa oJBqdr3PwHYBy M14zyJCsb9G9KYNlxEcnu TGpKsZdkTU2tM2oDBiber ddp5jwxyukArbse5sfjn3 6vO61T74xKZag ZHRoPSIzMCUiIHZhbGlnb v2puE2kYz1+JVLqmUL9eF Y1oK6uDJOrEsW7NBccE42 9InRvcCIvPjxj u2gbh7rufOl2KkC1QNDsi kCwjTbqQWO6n9RrAk50I9 9sIHdpZHRoPSIyMCUiIHZ prBkqxe5xrB4h Ii8+EOGvmDM7nXO9aS8eQ eEzYvM9ERqeG020XkUozB PgKsazJ40rZ3AtiGT+PHR uPbc1RNNkpRcf TB4rgGIkOVnlGg5hEBF5A jEeJuCqXKnkW3TzNQEiti jmidklqBF9DLKrVJLkbO5 5Zx1jkBmlNRQw qMITtC4orcxet1pcxhneV gXhIYUxUWb7CZo7KCFjzC fsRoMyGKP8ZuR7IRU2yHJ ntE4orYnrpwzt eY0tD2HmZEGxjslqMr25z B6jEcZuXbG2IYqbRgu+T0 xJVkVSLCBSSUNIQVJEIEw 4A1OdXsx3BQFb bMjvPV2bfTTfAMuwEi9hf YjkaBjtBZ0zZBGzprmiHT OahI4oBNGgbHChmPqbFR5 eUFRmbvtby049 MdUkVEK3XCFtvQXnA8Lei Q8dGwBoHMAeMIPnR7IibP EkQVsuP810TCysFpV6CVR flgAqF1McOFHk sVdzHlR1b0T6Zx7vHR0wD u5dNXV6JW66NL86mIBqx8 M3bKC0G4AjCJUnvumkwcu npDX9AGUkWZAf sT47qADgRCrbSp8cu0C5d 938UJGdQDQxtD70Rr5elX fqHONioMYRdK4pmhmon7q vcjogIzAwMDAw DFt7FXn3IRTlxCnnIhWhF KT1OeO1YUR4kHEmlY0jiG ajfdonoA3rRjb+NjUgWWV opmE4J8RgUon3 QIJjoQraPG5wrLBdUKljE f5zdNgefKgtWM9bGCJwjf kpCQLhyU9sNKYvfHZkmPd kNL8tKIWnvesn m418UnEmDPE3ZRBkeNAhA 5CurC5cKnFaQGJqXCPbH8 TphPWsJBqrC363CGmuYlX 6MBIrjcJrC3Pa YVRtaWsaSkS3l3F9Yn4VU QlaFI62OP22pIJkc5N7pR X5F7CqAYFibydjkilceEF 3AAGfCEIcoY09 qURaDKfwAq0ia6T3y685C RMjORCgbY48Fs9etRxbQH KmoFBMrR0gqhate5djoys gIzAwMDAwMDt0 ZNy6NWXcfUieKyCsEGE2W mD1DKH6sMVmhN2vhVqyjv bkaC7aEff+K5D6vUQ8rOX udDwvdGQ+PC90 lr89A5FaUavjWms4UBGaY KS4mNK8lK6bOIFbHZxrh2 A8rGB8X6ErifIgyt4zp7x hJGKzLRifD16e rDGek1R8HEUpnZL8IGMah CrdSbEkiS27Elw+PGNvbG pes1ScFuckb4buy5nnpHu 9IjMwJSIgdmFs rUfiNFJ6c3YgXj03C92gL HdpZHRoPSIzMCUiIHZhbG jdzt5itH8tRv0+PGNvbCB 0cVK3qE8eNcUz IqE6JGnzI142QhGgdPMjQ oyiv9yvi0cxtSj6YjPxCY XlwiMcvUrjQSW8w9UpBs6 7W3VkhXybl4Fw Wzn9dm60eYIid5K6aTR9X 3BhZGRpbmctbGVmdDogMC 7qKWHjoaiqXWHasE7zRGE cH3a8ZfJgAyM1 ZJagN0KuqpV1LZCjlIIgQ STpkGNYrL1tushhp2neea pjRcBkAHEbWBi7PFh2REB saWduOiBsZWZ0 PyF4YWH1ySYyyJ6nlYotl wyotB6uKgd+JEb7z3wphA FqGW0xmJK0FP03IX61iVV hu0F1pZB6A5Lw OXMjzjykghamhBV2NFNsJ BLioS59Yd7siPzoDs9cSE YcJMB1EAQsdPNgX2ZhwU7 yOiAjMDAwMDAw X0YnrOMkXSzqU461ISvgC mA8LWNzhpPlU1AfPZVhjZ xqDxH7k2E9Me7XPW11FT9 6KC85bHNgm0V4 tJF9M6ZcQLSjgassevxsi CT8VFRaZJEusN00Tv2jjK ncBf4uLNHjCZD2ZFVteZP hO2BrsH9gKdBq NVMmCNSwD9MysIWmQPueH 652HPpxLaP0VNMjorDyT0 SuUWLcoLjqAeV8x2D7Px6 WFf36XG93KW63 xOEvl0C1dXC7J0VgTYBfr mugfiqndIF3XPRsSSKmvC 47Vv3iwQvfSg1nMJDcDBP 1UDVjhOSyM1Wp wN9tMwMlHMVvSBYtG8Avo WIeOYdrE798EErcKtP4VR ZttuVnT1ZbKLGlmPicRkO 3h0Z9Ym0MNZsd dlk0I4BxPkpgqRK+PC90Y QIiYE02uWQgbZZlg5inaZ n4EnVzWSBbIGR8xJfuDZn gx0AjTNRpB59q bGFw (more content not included)... [facility] Physician Orderon 05-14-2022 Physician Order [id number]#1 .00CD:127 [facility] Formson 05-10-2022 Forms [id number]#1 .00CD:127 [facility] Ambulatory Visit Summaryon 0 05-07-2022 Ambulatory Visit Summary BRADEN PAYNE :1955 Visit Date:05/07/2022 Ambulatory Visit Instructions Your [...] With: Camryn SNELL MD Where: General Surgery Vamsi/oLis B[facility] General Surgery Office/Clini c Noteon 05-07-2022 General [...] - Not Given Patient Refuses Normal [facility] Comment on above: Result Comment: Elec tronically Signed By: VAMSI JERNIGAN, Camryn Baker\Date and Time Signed: 05/07/22 15:22 EST [facility] Documentson 0 05-03-2022 [facility] Documents [id number]# 1.00CD:127 [facility] IntraOperative Documents [id number]# 1.00CD:127 [facility] Coding Summary.on 05-01-2022 Coding Summary. CD:[id number]:[id number] G h0bWw+PGhlYWQ+EE1RRLP uF98vqRBfdX3QJ1fVEN5B UNNBYMXPYB6YTF6mlTZ4O UoaM9AqxoLs ZflbrMIjIM57JCf9LQP8c EtiYUcwbB3zwSKsP5u5Wx ItPA77fD93OIkiRKEzEeO 3LjZpbjsgbWFy I4vgUpVvaMZyUna+PHRhY mxlIHdpZHRoPScxMDAlJy QnpRmbWB0rGs8gETVfFCT vbGxhcHNlOiBj s5raTONvEDoyFT6qiGanI 5GkhBB8RHCpe9b3Xl70rM I+HOFmHRY2xRksRCygo04 9XjGzx7beAMP1 nWTpNFecSKV1K69rd3K4P OCsUWHlDSW1jNY8iB7inL gajwbvO0FkfAEfGaX3XYL 9hURtpX8tdAra hlqyiU3dLvy+T93FNU5VS AGOCV5WMdw1U3CmLcfnoU I+IQ91XJXsTY33qXQvhBK cv2ohrZp3ZlJl JALkCZP9dXnhZInyo4SoD YDlM49mjNNkm6G6SSLbqN xpgTTtDpKbnCN2fU3bGJe tlhnvp9gybwbl Mnlvw2vnvc25oX50U60eL WexMZGaFGZ7XJIdJFFyeI fuwd5hzG6oLw7+DGupm9y sb0eqqMw2BpSf CVEpzcIarCcoTQX0b4AhV f55Y8YwgBdgx3WfNhz5zs 83pENhw5W6aKF2HTbzSZZ tkL4eQCyjWqA3 FEAgElBirN04jMBlMVsqH v9ddMsnfGekMH2xQSTqqh ivFDHjkP9oTQDwkDCbwTe tBL8bTHQzessa k239XbQhFEP7UBBxjBXsO 1FfiX0wMgOtMBFwRKKyU2 WtgHSiITciU000KGifUmC 9LOSmndYpL7Zu PXOksYvnBrF9r4U4Xv8Sa 5VkczocHTB3CHwaTWVbLd NkTfKxMpL6J9ArNdo0VPI eoXpdVA4sY5Qo UJPvricdvwdnvCP5DWKhV LRpeY83vQLwUHliOo6qa9 R9j811VDCcBZBruU71Pw4 udDogMTBwdCBU uN1mugnws1fllwtmCnEvL EEbVGh2FQn2GMNthYkkVw GwAUV8EbC3PLJ9zJRpxR8 mxShkdjrodN0t Oyc+S74xuY1lNZM5DLP1g aldBBNuasFhOA27EH60J3 RyPjwvdGFibGU+PGRpdiB ouYynAA4dMcDb o4lpe2CeGEpnF7ZlMVUoD WmoNpz0MKTmYDX6bJH7qZ 3cGRTmPBbkg0W2lRH6R5Z qcfMxay4xf6tm GNLvPDqbD15zkFYxr9R6Y APbjLU2PDSpjKndErCdhB 93Oyc+CGNrxIanu9QoLtx kp7bte5mvlGn8 PaYiCYXrfrMqwJhxKEN9k 7LzQt67U34hEPvaMXCpWI BcJLPoSHZelSntnv5lzA1 wIi8+PGNvbCB3 kAO8eZ0lMEJlEvM6VOmjY 923YtQhoGIoDnkij5ecy6 uouYa7UkFsWRDrahVjkSx oAKT7k1XwLa54 A87cMCfmTNCvWNRtBYRzL RMqiPhyrk3fbH2gTi5+PC 5nf3fyfp89sZ14vBU+PHR oDXP8jFmzQQzw HIKamI8hMPrcWuN9MSZrK uHyuM93tXBoYCeyMr7fmK jywIosNG8kXCPgoagwh03 2TnUjx0brWLIe jTLzXOqxHKN7J88cu7G2S OYaDNCwIXZ9qKJ9aB1fnN lnbjogbGVmdDsgdmVydGl aCBasBCysB008 IHRvcDsnPlBhdGllbnQgT yZkLEm0D1EqWuc7NHEsaB zoTR9biJGcFIodHa5uoCp xvKosDR7sSEIx ajtst949DhEla6tiLGZhl XMeHXrhOMG9S55ic6E1WG VuNNPlJPQ4rTD3lK7biQy nbjogbGVmdDsg uoBlcGsfLOtaGBcsI831S HRvcDsnPkJpcnRoIERhdG Y6EK64GB59tGPjv6R5nAC 2Z3EkZDHldnrn aerhuRF6FLDtTIYaeH73P q3xbOrbJy4xABVxOWF9JZ PehUQzZ7TzjX4nOrZgREO vUZAmN0WtqHTj KWrnO714FMzsThS5YRRqn tRiE1PyRFPhuWldRdA6k9 O8As8WM6K9PZ35NA39hMO rd9H9pXN6T2Iu ISDsimobkwuzuWR1QVLnV ZPeeM08Gs3spJjwWi0oWJ HtDTN9NRQwwYYlZ3YduN2 yOiAjMDAwMDAw T9BzsZJuXCopJ051JRzyR mY1BYDnqaNbU5OhRIBzjF xhLzE2c1Y7Du4LMVh5HU6 8PX63tRFaq0B0 zEA5U8IzDAQabipustfbp WN4HWKlVZZzjY12Pf8vdG qzSx8mICZbZRG6AHQmsCO wA1PmlH8oCaMh FGNxVJSkW6NbfQShKYrwN 534TVpyAdB8MIOnflBmE9 JuBYYtxAdrUlI8f6J8Xm5 MUQHxKK69TNQ9 tNW5OR46SF77C9LhNmrqu GFibGU+PHRhYmxlIHdpZH RoPScxMDAlJyBzdHlsZT0 aXr3gIVNyTQAf rPwkmASfSrCxs4itOJHzJ UuiFX8ylNvuL4GqsQX6ZI Ifh5p4Px67R63tI4JwhPG +DLGgdJO8yVA6 qF0lHtUaBeZ9ZEbaY096J lIoyVTtGbcqf7nog2mliE f8NjK2ZFWsbgSqaOinPDA 8k0NqYs52B35h IHdpZHRoPSIxNSUiIHZhb Uzlhb6vcP6tZb3+PGNvbC Y8iDW2nH5sBpQrTiB9OUg mT187IcQvdQGh Lbqhn0yxq6pxoNg5AtLxF MBoqoYrvKcyOYK9e4FcIc 87Q5ZvnMwmj1HjHmk0xr1 8tDFhi0R7hDS6 P7IeUYLftlewgKUlfEbpX R7lVBOoqziaFWZcmM0jNA OwY3s3FbIgYvD1QVwcG5M mjwG8JASehBCm OTlzIDS1O29by2G2FFIwZ IArHCC3jEP3wE0uoTfkix ogbGVmdDsgdmVydGljYWw sIAdpR117DCNt yDkbKDPruR2vBQQnmKWee UeeHL5vXXIbmyztLa2VHK ZFUiwgUklDSEFSRCBMPC9 8VR41tAOrx1B5 fFB8D6YtHEMzvgfrvepbq ND0QAFfGVLwzF96dNKbGC vsSh9go7G7u317XXClLGH mxE20Jq9dfMgv AAMpzWAUqD7amdzrw0hcc mywOtRqCHGyDRa2NEi9DA MatPdcYzZnLZV4EhW6JUM 8lVKdbH6agZyw qqvwcG5qLrn+MDEvMDMvM Fs6NAjddQD+XNPjGYM0cB lfENsiRLKkhO4qKRGrS9p 5MsRvVaI1EZan B1VlHFLgnbyqVn85vT7cX nIxCtN7OHgfE2QsqsU4XK ZpuQHdEGfoGVB1Y28mi4D 8JMAqJZZpZQU4 fFQ0dO7khKqdrurcaWTvg DsgdmVydGljYWwtYWxpZ2 94IJIgzGrwMuH5CIxwDCS cVI78FS57cYOd e0I2uWJ8Y5SnBQHcfifwh bcbaZF0DKIvGCPvsF89iZ GvZCneMf8ct5E1x676BNO dRWXhfL91Pc6z yDzrWNNsqESHvG0vysaes 0rxmgxbJlUnLDWjSCq7NZ x6WCXnhXsvBzOuJQE1VkZ 6EAP5sXFtxD4e fVwnmikdbY3iTcz+TWFsZ TwvdGQ+GZYhSOF9qAdzCY dgAGTzcL0jYQRfP4y2CaY xGvF1XGlkZ4Hc ZRGzqswqUx17mL6vKcEyP uN3FKvuJ3MiyzK7FEQkwD RpJKqnFQY1N85ju7R5HTY rIMVlISM0hTE7 yF0wsEfhjmvjcZKwoEbju vAquFcqYBtwBNomD206XY RvcDsnPkFtYnVsYXRvcnk tK9SpINCLMLie W2ZgM0PypXpikZK+PC90c c42H9AvWrffSbc1QVFqLD T8mGP6rX7tCLJnEEcea2Y 3lSQ8E1YrnwCz mf6bb3lbJGPsMIpgO82hw DJxq3T6WLYpcIK2OAOpeB abLgMojT84Fcb+PGNvbGd by2OxRxwcz3lj x0bskPm0CmTuDLEgetLpp EqbVWL4j9VjSj34D09eGK dpZHRoPSIzMCUiIHZhbGl lqv5ucU9sYh3+ MIYtkIY8wQU2lG6dWePsF tZ8LHygL324JvFppKGsGx qde2ulj9jahQa7SqEwOMZ gdmFsaWduPSJ0 c9GoRc25S7UiwWhlw9UzQ fi8yf89cORbe6A4fFX9N8 BhZGRpbmctbGVmdDogMC4 yMDBpbjtwYWRk hO4aMBTkG5n2TcVcPfA4A PgsE0YpylD9SSPtsJAeFU VoqKSOzH8tubimq9nifem gIzAwMDAwMDt0 IHn5UUDiuGjvRdAjXFE2V wJ4RUS6zZGfpM2bdDukfd xsjL7kHdr+TOt2y6xahAO cQD4qgNE1SG79 AM15eFCug9X7yDA3U2UzF LQbcgyvuaqxxAV4YZXjON RexD29Zr6tnBfsXg7jYSI rWUT9GHJaeURg U7LhqG1dVkMkITVcMJNoL 1GheGTkTKhkO836XIzlQy W5QQCrqlZlQ4AmQVJfzUz vXyC4l2J9Dp7E WP93JU15FM63lDKue5I4b BS3T9OoHPWejfwyleatwS V1SYMwZFDlcD77Wv9jwJa aOl7vZDPoAAC7 CTIxwUSqU7EhaJ4zYuYpA USkCYQbD2CtpDCbUBytZ4 15QOanGqB7YDIgcpEwP7K sLWFsaWduOiB0 i9S0Gk3DYb52TY11ID46b YJqe9H0oVH5Y0CqDIVgxk zjicpstXK2GPMmFRCstX8 2Su1nxDupKs6r SXSnVSB6LQOeuDJeE3Ztr H2hCaFbHDUiVZWgK5IpyJ UjYJrmE926FRykGcL5CSR uieNaI6JnWVEt pIplClG7x2N8Ok0NNVzrb tk3W7KxQvowtKE+PC90YW RhKF68uUHgqGOcx9tzsLi 0JiTzZLJkFRQ9 eWxl (more content not included)... Normal [facility] Progress Note-Physicianon Progress Note-Physician Patient: BRADEN PAYNE Age: 67 years Sex: Male : 1955 Associated Diagnoses: None Author: Rich Abreu MD Postoperative Information Postoperative disposition: Postoperative disposition: To PACU. Optimetrix number: Optimetrix number [id number]. Anesthetic utilized: General. Special techniques: Warming device. Health Status Problem list: All Problems BMI 26.0-26.9,adult / SNOMED CT 5871063959 / Confirmed Diverticulosis / SNOMED CT 9892969201 / Confirmed Epigastric pain / SNOMED CT 385677130 / Confirmed Hernia, epigastric / SNOMED CT 062395332 / Confirmed Hypertension / SNOMED CT 8939945824 / Confirmed Incarcerated epigastric hernia / SNOMED CT 966758710 / Confirmed Inflamed skin tag / SNOMED CT 647323245 / Confirmed Internal hemorrhoid / SNOMED CT 180256187 / Confirmed Intradermal nevus / SNOMED CT 358157889 / Confirmed Lumbar radiculopathy / SNOMED CT 046011090 / Confirmed Lumbar spondylosis / SNOMED CT 378404601 / Confirmed Neoplasm of uncertain behavior of skin / SNOMED CT 615039034 / Confirmed Screening for malignant neoplasm of colon / SNOMED CT 219666929 / Confirmed Seborrheic keratosis / SNOMED CT 7337520125 / Confirmed Seborrheic keratosis, inflamed / SNOMED CT 7269693975 / Confirmed 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 [facility] Comment on above: Result Comment: Elec tronically Signed By: Brady JERNIGAN, Rich Aviles.br\Date and Time Signed: 05/01/22 14:10 EST Consent for Anesthesiaon Consent for Anesthesia [id number]# 1.00CD:127 [facility] Discharge Instructionson Discharge Instructions [id number]# 1.00CD:127 [facility] IntraOperative Documentson 0 04-30-2022 IntraOperative Documents [id number]# 1.00CD:127 [facility] Main OR Intraoperative Recor don 04-30-2022 Main OR Intraoperative Record IntraOp Document Type FT Summary Primary Physician: Camryn SNELL MD Finalized Date/Time: 04/30/22 14:38:14 Pt. Name: BRADEN PAYNE/Sex: 1955 Male Med Rec #: [id number] Physician: Camryn SNELL MD Financial #: [id number] Pt. Type: A Room/Bed: Admit/Disch: 04/29/22 06:06:35 - 04/29/22 11:30:00 Institution: [...] Entry 2 Entry 3 Case Attendee Robert WAITE, Francis SNELL MD, Camryn Mccann RN, Eugenia Peña Role Performed [employer] Surgeon - Primary PARTS ROOM ASSISTANT Time In 04/29/22 08:43:00 04/29/22 08:43:00 04/29/22 08:43:00 Time Out 04/29/22 09:34:00 04/29/22 09:34:00 04/29/22 09:34:00 Procedure HERNIA REPAIR VENTRAL HERNIA REPAIR VENTRAL HERNIA REPAIR VENTRAL ADULT(.) ADULT(.) ADULT(.) Comments Dr. Mendez supervising Last Modified By: Lelia RN, June Rowell RN, June Pinto RN 04/29/22 09:34:47 04/29/22 09:34:47 04/29/22 09:34:47 Entry 4 Entry 5 Entry 6 Case Attendee June Rowell RN, RN, Zhang Braun Role Performed Double End Production Grinder - Primary Double End Production Grinder - Primary Scrub - Primary Time In 04/29/22 08:43:00 04/29/22 08:43:00 04/29/22 08:43:00 Time Out 04/29/22 09:34:00 04/29/22 09:34:00 04/29/22 09:34:00 Procedure HERNIA REPAIR VENTRAL HERNIA REPAIR VENTRAL HERNIA REPAIR VENTRAL ADULT(.) ADULT(.) ADULT(.) Comments Last Modified By: Lelia GOMEZ, June Rowell RN, June Pinto RN 04/29/22 09:34:47 04/29/22 09:34:47 04/29/22 09:34:47 Entry 7 Case Attendee Parirs Griffith Role Performed Scrub - Primary Time [...] Procedure Yes Primary Surgeon Camryn SNELL MD Start 04/29/22 08:58:00 Stop 04/29/22 09:32:00 Anesthesia Type [...] and tissue Entry 1 Skin Integrity Intact, [place], Warm, and Skin Abnormality No Dry, Other/See Comments Outcomes Met? Y (more content not included)... Normal [facility] Preoperative Documentson Preoperative Documents [id number]# 1.00CD:127 Normal [facility] Consent for Treatmenton 04-11 Consent for Treatment [id number]#1 .00CD:127 Normal [facility] Inpatient Patient Summaryon 04-29-2022 Inpatient Patient Summary [address] [address] [facility] Clinical Discharge Instructions PERSON INFORMATION Name: BRADEN PAYNE [facility]#:[id number] PHYSICIANS Admitting Physician: Camryn SNELL MD Attending Physician: Camryn SNELL MD PCP: Merissa JERNIGAN, Ester Discharge Diagnosis: Incarcerated incisional hernia; Unspecified abdominal pain Comment: PATIENT EDUCATION INFORMATION Instructions: Laparoscopic Ventral Hernia Repair, Care After; Post Op Patient Instructions - FT (CUSTOM) Medication Leaflets: Follow up: With: Address: When: Camryn SNELL [address] [place] [address], [address], [address] [address] Business (1) Within 7 to 10 days MEDICATION LIST New Medications [id number], [address], [place] [id number], [phone] acetaminophen-oxycodo ne (acetaminophen-oxycod one 325 mg-5 mg [...] Capsules By Mouth every day. Comment: Normal [facility] Main OR PACU I Recordon 04-11 Main OR PACU I Record PACU Phase I Docum ent Type FT Summary Primary Physician: Camryn SNELL MD Finalized Date/Time: 04/29/22 10:13:04 Pt. Name: BRADEN PAYNE./Sex: 1955 Male Med Rec #: [id number] Physician: Camryn SNELL MD Financial #: [id number] Pt. Type: A Room/Bed: [place] [address] Admit/Disch: 04/29/22 06:06:35 - Institution: Case Times [...] Signed By: Lovely Johnson RN 04/29/22 10:13 Normal [facility] Main OR Preoperative Recordo n 04-29-2022 Main OR Preoperative Record PreOp Document Type FT Summary Primary Physician: Camryn SNELL MD Finalized Date/Time: 04/29/22 08:59:43 Pt. Name: BRADEN PAYNE/Sex: 1955 Male Med Rec #: [id number] Physician: Camryn SNELL MD Financial #: [id number] Pt. Type: A Room/Bed: [facility] Admit/Disch: 04/29/22 06:06:35 - Institution: Case Times [...] By: June Rowell RN 04/29/22 08:59 Normal [facility] Monitor Recordon 04-29-2022 Monitor Record [id number]# 1.00CD:127 Normal [facility] Operative Reporton Operative Report SURGERY DATE: 04/29/2022 [...] Camryn Snell M.D. FACS lr Dictated: 04/29/2022 [id number] Transcribed: 04/29/2022 cc:Ester Craven M.D. [facility] Comment on above: Result Comment: Elec tronically Signed By: Camryn SNELL MD\.br\Date and Time Signed: 04/29/22 10:49 EST Outpatient Surgery Discharge Instructionon 04-29-2022 Outpatient Surgery Discharge Instruction [place] [id number] Patient Discharge Instructions PERSON INFORMATION Name: BRADEN PAYNE Date of : 1955 Current Date: 04/29/2022 10:19:14 PHYSICIANS Admitting Physician: Camryn SNELL MD Discharge Diagnosis: Incarcerated incisional hernia; Unspecified abdominal pain ELMER BRADEN Lew has been given the following list of [...] Date Follow up: With: Address: When: Camryn SNELL [facility] [place], [address], [address] [address] Business (1) Within 7 to 10 days Pharmacy [...] to serve you. Thank you for choosing [facility] HERE ARE THE MEDICATION CHANGES THAT OCCURRED DURING YOUR HOSPITAL STAY New Medications [id number], [address], [place] [id number], [phone] acetaminophen-oxycodo ne (acetaminophen-oxycod one 325 mg-5 mg [...] and water are not available, use hand lump room supervisor. ? Change your dressing as told by [...] use a h (more content not included)... Normal [facility] Patient Education - Texton 0 04-29-2022 Patient [...] and water are not available, use hand lump room supervisor. ? Change your dressing as told by [...] care provider approves. General instructions ? Take kfwo-iwn-mhorrdc and prescription medicines only as told by your health care provider. ? To prevent or treat constipation while you are taking prescription pain medicine, your health care provider may recommend that you: ? Take xkma-prg-wzhpfph or prescription medicines. ? Eat foods that [...] 02/10/2013 Document Revised: 02/06/2018 Document Reviewed: 10/16/2016 [employer] Patient Education ? 2019 [employer]. [facility] Progress Note-Physicianon Progress Note-Physician Patient: BRADEN PAYNE [...] All Problems BMI 26.0-26.9,adult / SNOMED CT 8153232863 / Confirmed Diverticulosis / SNOMED CT 5457487166 / Confirmed Epigastric pain / SNOMED CT 446080109 / Confirmed Hernia, epigastric / SNOMED CT 691950032 / Confirmed Hypertension / SNOMED CT 5157883534 / Confirmed Incarcerated epigastric hernia / SNOMED CT 932380864 / Confirmed Inflamed skin tag / SNOMED CT 913763456 / Confirmed Internal hemorrhoid / SNOMED CT 846376461 / Confirmed Intradermal nevus / SNOMED CT 678018133 / Confirmed Lumbar radiculopathy / SNOMED CT 226455045 / Confirmed Lumbar spondylosis / SNOMED CT 555184505 / Confirmed Neoplasm of uncertain behavior of skin / SNOMED CT 685916510 / Confirmed Screening for malignant neoplasm of colon / SNOMED CT 187003631 / Confirmed Seborrheic keratosis / SNOMED CT 8814697445 / Confirmed Seborrheic keratosis, inflamed / SNOMED CT 9300847033 / Confirmed 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 Normal [facility] Comment on above: Result Comment: Elec tronically Signed By: Brady JERNIGAN, Rich Aviles.br\Date and Time Signed: 04/29/22 06:29 EST Formson 04-26-2022 Forms [id number]#1 .00CD:127 Normal [facility] Consent for Procedure/Surger yon 04-24-2022 Consent for Procedure/Surgery [id number]#1 .00CD:127 [facility] Ambulatory Visit Summaryon 0 04-23-2022 Ambulatory Visit Summary BRADEN PAYNE :1955 Visit Date:04/19/2022 Ambulatory Visit Instructions Your Diagnosis Incarcerated epigastric hernia Your Care Team Attending Physician - VAMSI JERNIGAN, Camryn Rodriguez Primary Care Physician - Ester Craven MD This Is Your Medications List Fish Oil [...] Follow-Up Appointments Friday 8:30 AM EST Where: [facility] Surgical Services Medications What How Much When [...] SVT (supraventricular tachycardia) Ventricular premature contractions Normal [facility] BUNon 04-22-2022 Urea nitrogen [Mass/Vol] 25 mg/dL High 5-21 [facility] Comment on above: Performed By: #### 2 278841, 4942355, 6738284, 6705675, 26381700, 8758058 ####[facility] [address] [place] [address] CBC w/Indiceson 04-22-2022 Erythrocyte distribution width (RBC) [Ratio] 12.2 % Normal 10.9-14.2 [facility] Comment on above: Performed By: #### 2 166659, 0733613, 7565466, 6032075, 02999682, 7293660 ####[facility] [address] [place] [address] Hematocrit (Bld) [Volume fraction] 44.4 % Normal 37.7-49.0 [facility] Comment on above: Performed By: #### 2 218416, 1121273, 5794193, 4151069, 42397694, 0779432 ####[place] [address] [place] [address] Hemoglobin (Bld) [Mass/Vol] 14.8 g/dL Normal 13.5-17.5 [facility] Comment on above: Performed By: #### 2 997430, 0670511, 2018543, 1444635, 80581638, 9061184 ####[place] [address] [place] [address] MCH (RBC) [Entitic mass] 31.6 pg Normal 27.0-34.0 [facility] Comment on above: Performed By: #### 2 718216, 3623566, 3817200, 2952939, 79205022, 8055818 ####[facility] [address] [place] [address] MCHC (RBC) [Mass/Vol] 33.3 g/dL Normal 31.4-36.0 [facility] Comment on above: Performed By: #### 2 425563, 8136095, 3825379, 7603179, 89488472, 9221027 ####[address] [address] [place] [address] MCV (RBC) [Entitic vol] 95.1 fL Normal 80.0-100.0 [facility] Comment on above: Performed By: #### 2 718956, 0428740, 9507374, 3357884, 57899121, 3684349 ####[facility] [address] [place] [address] Platelet mean volume (Bld) [Entitic vol] 8.4 fL Normal 6.4-10.8 [facility] Comment on above: Performed By: #### 2 824052, 5044317, 9432173, 5078734, 36553146, 9421746 ####[facility] [address] [place] [address] Platelets (Bld) [#/Vol] 286.0 E9/L Normal 150.0-500.0 [facility] Comment on above: Performed By: #### 2 288558, 3891161, 4353208, 4696762, 58301383, 2605610 ####[address] [address] RBC (Bld) [#/Vol] 4.7 E12/L Normal 4.3-5.9 [facility] Comment on above: Performed By: #### 2 098492, 4199131, 4984937, 6944318, 41678940, 8512525 ####[address] [place] [address] WBC corrected for nucl RBC Auto (Bld) [#/Vol] 9.2 E9/L Normal 4.0-11.0 [facility] Comment on above: Performed By: #### 2 560003, 1303994, 0245732, 3231121, 10009515, 9247472 ####[address] [place] [address] Consent for Procedure/Surger yon 04-22-2022 Consent for Procedure/Surgery [id number]#1 .00CD:127 Normal [facility] Consent for Treatmenton 04-10 Consent for Treatment [id number]#1 .00CD:127 Normal [facility] Creatinineon 04-22-2022 Creatinine [Mass/Vol] 1.0 mg/dL Normal 0.5-1.3 [facility] Comment on above: Performed By: #### 2 307314, 0351946, 2846466, 9313767, 19522756, 2039858 ####[facility] [address] [place] [address] Glucoseon 04-22-2022 Glucose [Mass/Vol] 114 mg/dL Normal 55-199 [facility] Comment on above: Performed By: #### 2 986110, 0787798, 7722458, 9220149, 10618686, 6152228 ####[facility] [address] [facility] [place] [address] Lyteson 04-22-2022 Anion gap [Moles/Vol] 12 mmol/L Normal 6-16 [facility] Comment on above: Performed By: #### 2 376128, 3150689, 5637464, 1866597, 67971479, 0005366 ####[facility] [address] [place] [address] Chloride [Moles/Vol] 103 mmol/L Normal 101-[address] [facility] Comment on above: Performed By: #### 2 918866, 2300248, 5694713, 0310092, 46132288, 3674882 ####[facility] [address] [place] [address] CO2 [Moles/Vol] 27 mmol/L Normal 21-31 [facility] Comment on above: Performed By: #### 2 011677, 1084814, 4065239, 6369261, 27724219, 1816561 ####[facility] [address] [place] [address] Potassium [Moles/Vol] 3.6 mmol/L Normal 3.5-5.3 [facility] Comment on above: Performed By: #### 2 575413, 6873801, 7251591, 9215280, 13001392, 1807214 ####[facility] [address] [place] [address] Sodium [Moles/Vol] 138 mmol/L Normal 135-145 [facility] Comment on above: Performed By: #### 2 449035, 2593665, 1794618, 0559180, 16293889, 1884118 ####[facility] [address] [place] [address] XR Chest 2 Viewson 3 XR Chest [...] V. Transcribed by: YONAS Technologist: ARLEN Normal [facility] eGFRon 04-22-2022 GFR/1.73 sq M.predicted among blacks MDRD (S/P/Bld) [Vol rate/Area] mL/min/{1.73_m2} Normal >=59 [facility] Comment on above: Order Comment: Order added by Discern Expert. Result Comment: eGFR is race adjusted. AA=. Performed By: #### 2 272347, 3535342, 6669862, 4823077, 97227843, 2052232 ####[facility] [address] [place] [address] GFR/1.73 sq M.predicted among non-blacks MDRD (S/P/Bld) [Vol rate/Area] mL/min/{1.73_m2} Normal >=59 [facility] Comment on above: Order Comment: Order added by Discern Expert. Result Comment: Field Sales Agent mars kidney disease could be indicated at eGFR's of less than 60 mL/min/1.73m2. Kidney failure is indicated at less than 15 mL/min/1.73m2. Performed By: #### 2 593725, 6567203, 3009068, 3402069, 89134333, 9277129 ####[facility] [address] [place] [address] General Surgery Office/Clini c Noteon 04-19-2022 General [...] SARS-CoV-2 (COV (more content not included)... Normal [facility] Comment on above: Result Comment: Elec tronically Signed By: VAMSI JERNIGAN, Camryn Will.br\Date and Time Signed: 04/19/22 16:[address] [...] or bowel involvement. Electronically authenticated by: WILTON DIONISIO Date: 2022-04-12 08:12 Normal [facility] Lab Reportson 04-12-2022 Lab Reports [id number]#1 .00CD:127 Normal [facility] RAD - CT Reporton 04-12-2022 RAD - CT Report [id number]#1 .00CD:127 Normal [facility] CREATININEon 04-11-2022 Creatinine [Mass/Vol] 0.80 mg/dL Normal 0.70-1.30 [facility] Comment on above: Performed By: #### P [facility], VITAD #### [facility] [address] [address] [address] Max Peck EGFR-AF MAURITANIAN >60 Normal >=60 [facility] Comment on above: Performed By: #### P [facility], [facility] #### [facility] [address] [address] [address] Max Pekc EGFR-NON AF MAURITANIAN >60 Normal >=60 [facility] Comment on above: Performed By: #### P [facility], [facility] #### [facility] [address] [address] [address] Max Peck Ambulatory Visit Summaryon 0 04-10-2022 Ambulatory Visit Summary ELMERBRADEN :1955 Visit Date:04/03/2022 Ambulatory Visit Instructions Your [...] SVT (supraventricular tachycardia) Ventricular premature contractions Normal [facility] Facesheeton 04-04-2022 Facesheet [id number]#1 .00CD:127 Normal [facility] ED Note-Physicianon 03-21-19 ED Note-Physician [id number]#1 .00CD:127 Normal [facility] RAD - MISCon 03-18-2022 [facility] MIS [id number]#1 .00CD:127 Normal [facility] XR ABD FLAT UP_PA Kuldip 03-16 XR [...] by: EDENILSON KNIGHT Date: 2022-03-16 10:42 Normal [facility] LIPID PROFILEon 03-06-2022 CHOL-HDL RATIO NORM SEE BELOW Normal [facility] Comment on above: Result Comment: 3.3 - 4.4 LOW RISK 4.4 - 7.1 AVERAGE RISK 7.1 - 11.0 MODERATE RISK >11.0 HIGH RISK Performed By: #### P [facility], VITAD #### [facility] [address] [address] [address] Max Peck Cholesterol [Mass/Vol] 163 mg/dL Normal <=200 [facility] Comment on above: Performed By: #### P [facility], VITAD #### [facility] [address] [address] [address] Max Peck Cholesterol in HDL [Mass/Vol] 50 mg/dL Normal 40-60 [facility] Comment on above: Performed By: #### P [facility], VITAD #### [facility] [address] [address] [address] Max Peck Cholesterol in LDL [Mass/Vol] 100.0 mg/dL Normal [facility] Comment on above: Performed By: #### P [facility], VITAD #### [facility] [address] [address] [address] Max Peck Cholesterol.total/Cho lesterol in HDL [Mass ratio] 3.3 {ratio} Normal [facility] Comment on above: Performed By: #### P [facility], VITAD #### [facility] [address] [address] [address] Max Peck HDL NORMAL > or = 60 mg/dl - LO W CARDIOVASCULAR RISK <40 mg/dl - HIGH CARDIOVASCULAR RISK Normal [facility] Comment on above: Performed By: #### P [facility], VITAD #### [facility] [address] [address] [address] Max Peck LDL CALC NORMAL SEE BELOW Normal [facility] Comment on above: Result Comment: <100 mg/dl OPTIMAL 100 - 129 mg/dl NEAR OR ABOVE OPTIMAL 130 - 159 mg/dl BORDERLINE HIGH 160 - 189 mg/dl HIGH >190 mg/dl VERY HIGH Performed By: #### P [facility], VITAD #### [facility] [address] [place] [address] Dr. Max Peck Triglyceride [Mass/Vol] 65 mg/dL Normal <=150 [facility] Comment on above: Performed By: #### P [facility], VITAD #### [facility] [address] [place] [address] Dr. Max Peck VLDL CALC 13.0 mg/dL Normal [facility] Comment on above: Performed By: #### P SASC, VITAD #### [facility] [address] [place] [address] Dr. Mxa Peck PROF 14(COMP METB)on 022 Albumin [Mass/Vol] 3.9 g/dL Normal 3.4-5.0 [facility] Comment on above: Performed By: #### P SASC, VITAD #### [facility] [address] [place] [address] Dr. Max Peck Albumin/Globulin [Mass ratio] 1.3 {ratio} Normal [facility] Comment on above: Performed By: #### P SASC, VITAD #### [facility] [address] [place] [address] Dr. Max Peck ALP [Catalytic activity/Vol] 79 U/L Normal 46-116 [facility] Comment on above: Performed By: #### P SASC, VITAD #### [facility] [address] [address] [address] Max Peck ALT [Catalytic activity/Vol] 24 U/L Normal 16-63 [facility] Comment on above: Performed By: #### P SASC, VITAD #### [facility] [address] [address] [address] Max Peck Anion gap [Moles/Vol] 12.3 mmol/L Normal [facility] Comment on above: Performed By: #### P SASC, VITAD #### [facility] [address] [address] [address] Max Peck AST [Catalytic activity/Vol] 25 U/L Normal 15-37 [facility] Comment on above: Performed By: #### P SASC, VITAD #### [facility] [address] [place] [address] Dr. Max Peck Bilirubin [Mass/Vol] 1.4 mg/dL Critically high 0.2-1.0 [facility] Comment on above: Performed By: #### P SASC, VITAD #### [facility] [address] [address] [address] Max Pcek Calcium [Mass/Vol] 9.1 mg/dL Normal 8.5-10.1 [facility] Comment on above: Performed By: #### P SASC, VITAD #### [facility] [address] [address] [address] Max Peck Chloride [Moles/Vol] 100 mmol/L Normal 98-107 [facility] Comment on above: Performed By: #### P SASC, VITAD #### [facility] [address] [address] [address] Max Peck CO2 [Moles/Vol] 30.7 mmol/L Normal 21.0-32.0 [facility] Comment on above: Performed By: #### P SASC, VITAD #### [facility] [address] [address] [address] Max Peck Creatinine [Mass/Vol] 0.86 mg/dL Normal 0.70-1.30 [facility] Comment on above: Performed By: #### P SASC, VITAD #### [facility] [address] [place] [address] Dr. Max Peck EGFR-AF MAURITANIAN 60 mL/min/1.73m2 Normal >=60 [facility] Comment on above: Performed By: #### P SASC, VITAD #### [facility] [address] [place] [address] Dr. Max Peck EGFR-NON AF MAURITANIAN 60 mL/min/1.73m2 Normal >=60 [facility] Comment on above: Performed By: #### P SASC, VITAD #### [facility] [address] [place] [address] Dr. Max Peck Globulin (S) [Mass/Vol] 3.1 g/dL Normal [facility] Comment on above: Performed By: #### P SASC, VITAD #### [facility] [address] [place] [address] Dr. Max Peck Glucose [Mass/Vol] 102 mg/dL Normal 74-106 [facility] Comment on above: Performed By: #### P SASC, VITAD #### [facility] [address] [place] [address] Dr. Max Peck Potassium [Moles/Vol] 4.0 mmol/L Normal 3.5-5.1 [facility] Comment on above: Performed By: #### P SASC, VITAD #### [facility] [address] [place] [address] Dr. Max Peck Protein [Mass/Vol] 7.0 g/dL Normal 6.4-8.2 [facility] Comment on above: Performed By: #### P SASC, VITAD #### [facility] [address] [place] [address] Dr. Max Peck Sodium [Moles/Vol] 139 mmol/L Normal 136-145 [facility] Comment on above: Performed By: #### P SASC, VITAD #### [facility] [address] [place] [address] Dr. Max Peck Urea nitrogen [Mass/Vol] 10.0 mg/dL Normal 7.0-18.0 [facility] Comment on above: Performed By: #### P HUGO, VITAD #### [facility] [address] [address] [address] Max Peck Urea nitrogen/Creatinine [Mass ratio] 11.6 mg/mg Normal [facility] Comment on above: Performed By: #### P HUGO, VITAD #### [facility] [address] [address] [address] Max Peck XR CSPINE MIN 4 [...] WILTON NICHOLE Date: 2022-01-19 07:14 Normal [facility] HEPATITIS PANEL, ACUTEon HBsAg Screen Negative Normal Negative [facility] Comment on above: Performed By: #### P HUGO, VITAD #### [facility] [address] [place] [address] Dr. Max Peck HCV AB <0.1 Normal 0.0-0.9 [facility] Comment on above: Performed By: #### P HUGO, VITAD #### [facility] [address] [address] [address] Max Peck Hep A Ab, IgM Negative Normal Negative [facility] Comment on above: Performed By: #### P HUGO, VITAD #### [facility] [address] [address] [address] Max Peck Hep B Core Ab, IgM Negative Normal Negative [facility] Comment on above: Performed By: #### P SASC, VITAD #### [facility] [address] [place] [address] Dr. Max Peck Interpretation: Comment Normal [facility] Comment on above: Result Comment: Nega tive Not infected with HCV, unless recent infection is suspected or other evidence exists to indicate HCV infection. Performed By: #### P SASC, VITAD #### [facility] [address] [place] [address] Dr. Max Peck INSULINon 12-29-2021 Insulin 15.1 uIU/mL Normal 2.6-24.9 [facility] Comment on above: Performed By: #### P SASC, VITAD #### [facility] [address] [place] [address] Dr. Max Peck TESTOSTERONE, TOTALon 2021 Testosterone [Mass/Vol] 766 ng/dL Normal 264-916 [facility] Comment on above: Result Comment: Adul t male reference interval is based on a population of healthy nonobese males (BMI <30) between 19 and 39 years old. Teddy, et.al. JCEM 2017,102;2998-5548. PMID: [id number]. Performed By: #### P SASC, VITAD #### [facility] [address] [place] [address] Dr. Max Peck CBC AUTO DIFFon 12-28-2021 BASO # 0.0 103/ul Normal 0.0-0.1 [facility] Comment on above: Performed By: #### P SASC, VITAD #### [facility] [address] [place] [address] Dr. Max Peck Basophils/100 WBC (Bld) 0.4 % Normal 0.2-2.0 [facility] Comment on above: Performed By: #### P SASC, VITAD #### [facility] [address] [place] [address] Dr. Max Peck EO # 0.0 103/ul Normal 0.0-0.7 [facility] Comment on above: Performed By: #### P SASC, VITAD #### [facility] [address] [place] [address] Dr. Max Peck Eosinophils/100 WBC (Bld) 0.3 % Critically low 0.9-7.0 [facility] Comment on above: Performed By: #### P SASC, VITAD #### [facility] [address] [place] [address] Dr. Max Peck Erythrocyte distribution width (RBC) [Ratio] 12.5 % Normal 11.0-15.0 [facility] Comment on above: Performed By: #### P SASC, VITAD #### [facility] [address] [place] [address] Dr. Max Peck Hematocrit (Bld) [Volume fraction] 41.5 % Critically low 42.0-54.0 [facility] Comment on above: Performed By: #### P SASC, VITAD #### [facility] [address] [place] [address] Dr. Max Peck Hemoglobin (Bld) [Mass/Vol] 14.0 g/dL Normal 14.0-18.0 [facility] Comment on above: Performed By: #### P SASC, VITAD #### [facility] [address] [place] [address] Dr. Max Peck IG # 0.09 10e3/ul Critically high 0.00-0.03 [facility] Comment on above: Performed By: #### P SASC, VITAD #### [facility] [address] [place] [address] Dr. Max Peck IG % 0.9 % Critically high 0.0-0.5 [facility] Comment on above: Performed By: #### P SASC, VITAD #### [facility] [address] [place] [address] Dr. Max Peck LYMPH # 2.6 103/ul Normal 1.2-3.8 [facility] Comment on above: Performed By: #### P SASC, VITAD #### [facility] [address] [place] [address] Dr. Max Peck Lymphocytes/100 WBC (Bld) 25.0 % Normal 20.5-60.0 [facility] Comment on above: Performed By: #### P SASC, VITAD #### [facility] [address] [place] [address] Dr. Max Peck MANUAL DIFF REQ NO Normal [facility] Comment on above: Performed By: #### P SASC, VITAD #### [facility] [address] [place] [address] Dr. Max Peck MCH (RBC) [Entitic mass] 32.6 pg Normal 25.9-34.0 [facility] Comment on above: Performed By: #### P SASC, VITAD #### [facility] [address] [place] [address] Dr. Max Peck MCHC (RBC) [Mass/Vol] 33.7 g/dL Normal 29.9-35.2 [facility] Comment on above: Performed By: #### P SASC, VITAD #### [facility] [address] [place] [address] Dr. Max Peck MCV (RBC) [Entitic vol] 96.7 fL Critically high 80.0-94.0 [facility] Comment on above: Performed By: #### P SASC, VITAD #### [facility] [address] [place] [address] Dr. Max Peck MONO # 1.2 103/ul Critically high 0.3-0.8 [facility] Comment on above: Performed By: #### P SASC, VITAD #### [facility] [address] [place] [address] Dr. Max Peck Monocytes/100 WBC (Bld) 11.1 % Normal 1.7-12.0 [facility] Comment on above: Performed By: #### P SASC, VITAD #### [facility] [address] [place] [address] Dr. Max Peck NEUT # 6.4 103/ul Normal 1.4-6.5 [facility] Comment on above: Performed By: #### P SASC, VITAD #### [facility] [address] [place] [address] Dr. Max Peck Neutrophils/100 WBC (Bld) 62.3 % Normal 43.0-75.0 [facility] Comment on above: Performed By: #### P SASC, VITAD #### [facility] [address] [place] [address] Dr. Max Peck Platelet mean volume (Bld) [Entitic vol] 9.6 fL Normal 9.5-13.5 [facility] Comment on above: Performed By: #### P SASC, VITAD #### [facility] [address] [place] [address] Dr. Max Peck PLT 323 103/ul Normal 150-450 [facility] Comment on above: Performed By: #### P SASC, VITAD #### [facility] [address] [place] [address] Dr. Max Peck RBC 4.29 106/ul Critically low 4.70-6.10 [facility] Comment on above: Performed By: #### P SASC, VITAD #### [facility] [address] [place] [address] Dr. Max Peck WBC 10.3 103/ul Normal 4.0-11.0 [facility] Comment on above: Performed By: #### P SASC, VITAD #### [facility] [address] [place] [address] Dr. Mxa Peck FREE THYROXINE INDEX T7on FTI 2.41 Normal 1.30-4.50 [facility] Comment on above: Performed By: #### T SH, URIC, T7, LIPID, CMP #### [facility] [address] [place] [address] Dr. Max Peck T3U 36.0 % Normal 33.0-40.0 [facility] Comment on above: Performed By: #### T SH, URIC, T7, LIPID, CMP #### [facility] [address] [place] [address] Dr. Max Peck T4 [Mass/Vol] 6.70 ug/dL Normal 4.50-12.10 [facility] Comment on above: Performed By: #### T SH, URIC, T7, LIPID, CMP #### [facility] [address] [address] [address] Max Peck GLYCOHEMOGLOBIN A1Con 2021 ADA RECOMMENDATION SEE BELOW Normal [facility] Comment on above: Result Comment: ADA RECOMMENDED LIMIT 4.0 - 6.0 ADA THERAPEUTIC TARGET < 7.0 ACTION SUGGESTED > 7.0 Performed By: #### P SASC, VITAD #### [facility] [address] [address] [address] Max Peck Glucose [Mass/Vol] 97 mg/dL Normal [facility] Comment on above: Performed By: #### P SASC, VITAD #### [facility] [address] [address] [address] Max Peck HbA1c (Bld) [Mass fraction] 5.0 % Normal 4.5-6.2 [facility] Comment on above: Performed By: #### P SASC, VITAD #### [facility] [address] [address] [address] Max Peck LIPID PROFILEon 12-28-2021 CHOL-HDL RATIO NORM SEE BELOW Normal [facility] Comment on above: Result Comment: 3.3 - 4.4 LOW RISK 4.4 - 7.1 AVERAGE RISK 7.1 - 11.0 MODERATE RISK >11.0 HIGH RISK Performed By: #### T SH, URIC, T7, LIPID, CMP #### [facility] [address] [address] [address] Max Peck Cholesterol [Mass/Vol] 221 mg/dL Critically high <=200 [facility] Comment on above: Performed By: #### T SH, URIC, T7, LIPID, CMP #### [facility] [address] [address] [address] Max Peck Cholesterol in HDL [Mass/Vol] 41 mg/dL Normal 40-60 [facility] Comment on above: Performed By: #### T SH, URIC, T7, LIPID, CMP #### [facility] [address] [address] [address] Max Peck Cholesterol in LDL [Mass/Vol] 157.2 mg/dL Normal [facility] Comment on above: Performed By: #### T SH, URIC, T7, LIPID, CMP #### [facility] [address] [address] [address] Max Peck Cholesterol.total/Cho lesterol in HDL [Mass ratio] 5.4 {ratio} Normal [facility] Comment on above: Performed By: #### T SH, URIC, T7, LIPID, CMP #### [facility] [address] [address] [address] Max Peck HDL NORMAL > or = 60 mg/dl - LO W CARDIOVASCULAR RISK <40 mg/dl - HIGH CARDIOVASCULAR RISK Normal [facility] Comment on above: Performed By: #### T SH, URIC, T7, LIPID, CMP #### [facility] [address] [address] [address] Max Peck LDL CALC NORMAL SEE BELOW Normal [facility] Comment on above: Result Comment: <100 mg/dl OPTIMAL 100 - 129 mg/dl NEAR OR ABOVE OPTIMAL 130 - 159 mg/dl BORDERLINE HIGH 160 - 189 mg/dl HIGH >190 mg/dl VERY HIGH Performed By: #### T SH, URIC, T7, LIPID, CMP #### [facility] [address] [address] [address] Max Peck Triglyceride [Mass/Vol] 114 mg/dL Normal <=150 [facility] Comment on above: Performed By: #### T SH, URIC, T7, LIPID, CMP #### [facility] [address] [address] [address] Max Peck VLDL CALC 22.8 mg/dL Normal [facility] Comment on above: Performed By: #### T SH, URIC, T7, LIPID, CMP #### [facility] [address] [address] [address] Max Peck PROF 14(COMP METB)on 12-28- 022 Albumin [Mass/Vol] 3.9 g/dL Normal 3.4-5.0 [facility] Comment on above: Performed By: #### T SH, URIC, T7, LIPID, CMP #### [facility] [address] [place] [address] Dr. Max Peck Albumin/Globulin [Mass ratio] 1.3 {ratio} Normal [facility] Comment on above: Performed By: #### T SH, URIC, T7, LIPID, CMP #### [facility] [address] [place] [address] Dr. Max Peck ALP [Catalytic activity/Vol] 63 U/L Normal 46-116 [facility] Comment on above: Performed By: #### T SH, URIC, T7, LIPID, CMP #### [facility] [address] [place] [address] Dr. Max Peck ALT [Catalytic activity/Vol] 75 U/L Critically high 16-63 [facility] Comment on above: Performed By: #### T SH, URIC, T7, LIPID, CMP #### [facility] [address] [place] [address] Dr. Max Peck Anion gap [Moles/Vol] 8.8 mmol/L Normal [facility] Comment on above: Performed By: #### T SH, URIC, T7, LIPID, CMP #### [facility] [address] [place] [address] Dr. Max Peck AST [Catalytic activity/Vol] 41 U/L Critically high 15-37 [facility] Comment on above: Performed By: #### T SH, URIC, T7, LIPID, CMP #### [facility] [address] [place] [address] Dr. Max Peck Bilirubin [Mass/Vol] 0.8 mg/dL Normal 0.2-1.0 [facility] Comment on above: Performed By: #### T SH, URIC, T7, LIPID, CMP #### [facility] [address] [place] [address] Dr. Max Peck Calcium [Mass/Vol] 9.1 mg/dL Normal 8.5-10.1 [facility] Comment on above: Performed By: #### T SH, URIC, T7, LIPID, CMP #### [facility] [address] [address] [address] Max Peck Chloride [Moles/Vol] 102 mmol/L Normal 98-107 [facility] Comment on above: Performed By: #### T SH, URIC, T7, LIPID, CMP #### [facility] [address] [address] [address] Max Peck CO2 [Moles/Vol] 33.8 mmol/L Critically high 21.0-32.0 [facility] Comment on above: Performed By: #### T SH, URIC, T7, LIPID, CMP #### [facility] [address] [address] [address] Max Peck Creatinine [Mass/Vol] 0.80 mg/dL Normal 0.70-1.30 [facility] Comment on above: Performed By: #### T SH, URIC, T7, LIPID, CMP #### [facility] [address] [place] [address] Dr. Max Peck EGFR-AF MAURITANIAN >60 Normal >=60 [facility] Comment on above: Performed By: #### T SH, URIC, T7, LIPID, CMP #### [facility] [address] [place] [address] Dr. Max Peck EGFR-NON AF MAURITANIAN >60 Normal >=60 [facility] Comment on above: Performed By: #### T SH, URIC, T7, LIPID, CMP #### [facility] [address] [address] [address] Max Peck Globulin (S) [Mass/Vol] 2.9 g/dL Normal [facility] Comment on above: Performed By: #### T SH, URIC, T7, LIPID, CMP #### [facility] [address] [address] [address] Max Peck Glucose [Mass/Vol] 99 mg/dL Normal 74-106 [facility] Comment on above: Performed By: #### T SH, URIC, T7, LIPID, CMP #### [facility] [address] [place] [address] Dr. Max Peck Potassium [Moles/Vol] 3.6 mmol/L Normal 3.5-5.1 [facility] Comment on above: Performed By: #### T SH, URIC, T7, LIPID, CMP #### [facility] [address] [place] [address] Dr. Max Peck Protein [Mass/Vol] 6.8 g/dL Normal 6.4-8.2 [facility] Comment on above: Performed By: #### T SH, URIC, T7, LIPID, CMP #### [facility] [address] [place] [address] Dr. Max Peck Sodium [Moles/Vol] 141 mmol/L Normal 136-145 [facility] Comment on above: Performed By: #### T SH, URIC, T7, LIPID, CMP #### [facility] [address] [place] [address] Dr. Max Peck Urea nitrogen [Mass/Vol] 16.0 mg/dL Normal 7.0-18.0 [facility] Comment on above: Performed By: #### T SH, URIC, T7, LIPID, CMP #### [facility] [address] [place] [address] Dr. Max Peck Urea nitrogen/Creatinine [Mass ratio] 20.0 mg/mg Normal [facility] Comment on above: Performed By: #### T SH, URIC, T7, LIPID, CMP #### [facility] [address] [place] [address] Dr. Max Peck TSHon 12-28-2021 TSH 1.544 uIU/mL Normal 0.358-3.740 [facility] Comment on above: Performed By: #### T SH, URIC, T7, LIPID, CMP #### [facility] [address] [place] [address] Dr. Max Peck URIC ACID SERUMon 12-28-2021 Urate [Mass/Vol] 5.4 mg/dL Normal 3.5-7.2 [facility] Comment on above: Performed By: #### T SH, URIC, T7, LIPID, CMP #### [facility] [address] [place] [address] Dr. Max Peck VITAMIN D 25 OHon 12-28-2021 VIT D 25-OH 51.2 ng/mL Normal [facility] Comment on above: Performed By: #### P SAS, VITAD #### [facility] [address] [address] [address] Max Peck VIT D RANGES SEE BELOW Normal [facility] Comment on above: Result Comment: <20 ng/mL Vit D deficient 20 - <30 ng/mL Vit D insufficient 30 - 100 ng/mL Vit D sufficient >100 ng/mL Potential Toxicity Performed By: #### P SAS, VITAD #### [facility] [address] [address] [address] Max Peck Cardiovascular Lab Reporton 09-01-2020 Cardiovascular Lab Report [facility] Patient Name: Braden Payne [facility] MR #: [id number] Physician: Domenic Ureña MD Department of Service Date: 07/31/2020 Medicine Birthdate: 1955 Division of Room #: CC Cardiology Adult Cardiovascular Services [place] [address] Cardiovascular Laboratory Report The patient is a [...] Ureña MD Date Trans: 09/01/2020 10:51 A/sergio [id number] cc: Ester Craven M.D. [address], Alireza Moncada [facility] [id number] Normal [facility] LUMBAR SPINE 2 OR 3 VIEWSon 05-19-2019 LUMBAR SPINE 2 OR 3 VIEWS STUDY: LUMBAR SPINE 2 OR 3 VIEWS; 05/19/2019 9:49 am INDICATION: PAIN. COMPARISON: None. ACCESSION NUMBER(S): [id number] ORDERING CLINICIAN: Edgar Fairchild FINDINGS: No fracture or subluxation of the lumbar spine. L3-L5 laminectomy defects. Moderate to severe multilevel degenerative disc height loss with endplate sclerosis and osteophyte formation. Multilevel facet arthropathy. Moderate dextroscoliosis centered at L2. IMPRESSION: Severe degenerative changes of the lumbar spine. L3-L5 laminectomy defects. Normal [facility] Vital Signs Date Time Vital Sign Value Performing Clinician Rob witt 10-30-2022 10:15-0400 Blood Pressure Location Shae Lue [facility] 10-30-2022 10:15-0400 Diastolic blood pressure 92 mm[Hg] Shae Lue [facility] 10-30-2022 10:15-0400 Heart rate 73 /min Shae L[facility] 10-30-2022 10:15-0400 Systolic blood pressure 145 mm[Hg] Shae Lue [facility] 10-28-2022 06:50-0400 Body height 182.88 cm MD Ester Craven Work Phone: [facility] 10-28-2022 06:50-0400 Body weight 83.91 kg MD Ester Craven Work Phone: [facility] 09-04-2022 07:45-0400 Blood Pressure Location Shae Lue [facility] 09-04-2022 07:45-0400 Diastolic blood pressure 98 mm[Hg] Shae Lue [facility] 09-04-2022 07:45-0400 Heart rate 51 /min Shae Lue [facility] 09-04-2022 07:45-0400 Respiratory rate 16 /min Shae Lue [facility] 09-04-2022 07:45-0400 Systolic blood pressure 175 mm[Hg] Shae Lue [facility] 04-03-2022 15:00-0500 Blood Pressure Location Camryn TERESAL [facility] [place] 04-03-2022 15:00-0500 Diastolic blood pressure 96 mm[Hg] Camryn NILL [facility] [place] 04-03-2022 15:00-0500 Heart rate 80 /min Camryn NILL [facility] [place] 04-03-2022 15:00-0500 Respiratory rate 16 /min Camryn NILL [facility] [place] 04-03-2022 15:00-0500 Systolic blood pressure 144 mm[Hg] Camryn NILL General [facility] Encounters Encounter Date Encounter Type Care Provider Facility Start: 04-23-2023 ambulatory Shae M. Lue Facility:[facility] Start: 03-19-2023 Chart abstracting Jones landaverde MD Work Phone: Neurology Start: 01-08-2023 ambulatory Shae M. Lue Facility:[facility] Start: 12-05-2022 End: 12-06-2022 ambulatory Shae M. Lue Facility:ALFRED [facility] Start: 12-05-2022 End: 12-05-2022 Patient encounter procedure Shae M. Lue [facility] Start: 11-27-2022 End: 11-28-2022 ambulatory Shae Guillory Facility:[id number] Start: 10-30-2022 End: 10-31-2022 ambulatory Shae Guillory Facility:[facility] Start: 10-30-2022 End: 10-30-2022 Patient encounter procedure Shae Guillory [facility] [place] Start: 10-28-2022 End: 10-28-2022 ambulatory Ester Craven Facility:[facility] Start: 10-28-2022 End: 10-28-2022 ambulatory MD Ester Carven Work Phone: [facility] Work Phone: Start: 10-28-2022 End: 10-28-2022 Patient encounter procedure MD Ester Craven Work Phone: [facility] [place] Work Phone: Start: 09-24-2022 ambulatory Camryn MOOREL Facility :MARIA[facility] [place] Start: 09-04-2022 End: 09-05-2022 ambulatory Shae MMauri Sanchezakhil Facility:[facility] Start: 09-04-2022 End: 09-04-2022 Patient encounter procedure Shae Guillory [facility] Start: 08-26-2022 ambulatory Camryn NILL Facility:[facility] [place] Start: 08-16-2022 End: 08-17-2022 ambulatory Camryn R NILL Facility:[facility] Start: 05-21-2022 End: 05-21-2022 Patient encounter procedure Camryn R TERESAL General Surgery Nill/Said [place] Start: 05-07-2022 End: 05-08-2022 ambulatory Camryn SNELL Facility:[facility] Start: 05-07-2022 End: 05-07-2022 Patient encounter procedure Camryn SNELL General Surgery [facility] Start: 04-29-2022 End: 04-29-2022 ambulatory Camryn SNELL Facility:[facility] Start: 04-22-2022 End: 04-23-[address] Ester Craven Facility:[id number] Start: 04-19-2022 End: 04-20-2022 ambulatory Camryn SNELL Facility:[facility] Start: 04-14-2022 Encounter for preprocedural laboratory examination DR CAMRYN SNELL . [facility] Start: 04-11-2022 End: 04-12-2022 Encounter for preprocedural laboratory examination DR WILTON NICHOLE Facility:H1 Start: 04-11-2022 End: 04-12-[address] WILTON NICHOLE Facility: Start: 04-03-2022 End: 04-04-2022 ambulatory Camryn SNELL Facility:[facility] Start: 04-03-2022 End: 04-03-2022 Patient encounter procedure Camryn SNELL General Surgery [facility]/[facility] Start: 03-16-2022 End: 03-16-2022 ambulatory [facility] Facility:H1 Start: 03-06-2022 End: 03-07-[address] ESTER CRAVEN . Facility:[facility] Start: 01-18-2022 End: 01-19-[address] ESTER CRAVEN . Facility:[facility] Start: 01-02-2022 Encounter for genera l adult medical examination without abnormal findings DR ESTER CRAVEN . [facility] Start: 01-01-2022 End: 01-02-[address] ESTER CRAVEN . Facility:H1 Start: 12-28-2021 End: 12-29-[address] ESTER CRAVEN . Facility:[facility] Start: 12-28-2021 End: 12-29-2021 Encounter for general adult medical examination without abnormal findings DR ESTER CRAVEN . Facility: Start: 07-31-2020 End: 08-01-2020 ambulatory ESTER CRAVEN Facility:[facility] Procedures Date Procedure Procedure Detail Performing Clinician Start: 11-27-2022 Transperineal needle biopsy of prostate Shae Guillory Start: 10-28-2022 MR prostate wo/w con MD Ester Craven Work Phone: Start: 04-29-2022 Laparoscopic repair of obstructed hernia of anterior abdominal wall Camryn SNELL Start: 12-28-2021 PSA screening Edenilson delgado Comment on above: Performed By: #### P SAS, VITAD #### [facility] [address] [place] [address] Dr. Max Peck Start: 03-10-2012 Back structure, excl uding neck (body structure) Camryn NILL Start: 03-10-1999 Back structure, excl uding neck (body structure) Camryn NILL Start: 03-10-1993 Cholecystectomy Camryn NILL Excision of lesion of skin Nigel MOOREL Comment on above: orthodoxy and shave les on left neck Laminectomy Camryn NILL Comment on above: x 3-- 2018, 2012, 20 00 Plan of Treatment Date Care Activity Detail Author Start: 03-10-2023 Advance Directive Discussion Advance Directive Discussion [facility] Start: 03-10-2023 Depression Assessment Depression Ass essment [facility] Start: 11-08-2022 Influenza vaccination Influenza Vacc ine (#1) [facility] Start: 2022 Pneumococcal Vaccine : 65+ (1 of 1 - PCV) Pneumococcal Vaccine: 65+ (1 of 1 - PCV) [facility] Start: 2017 RSV Vaccine (1 - 1-d ose 60+ series) RSV Vaccine (1 - 1-dose 60+ series) [facility] Start: 2012 Prostate specific antigen measurement Prostate Cancer Screening Discussion [facility] Start: 2007 Shingrix Vaccine (1 of 2) Shingrix Vaccine (1 of 2) [facility] Start: 2002 Diabetes Screening Diabetes Screenin g [facility] Start: 2002 Screening for malign ant neoplasm of colon [facility] Start: 1992 Lipid panel Lipid Screening [facility] Start: 1976 Urine microalbumin profile DTaP,Tdap,Td Vaccine (1 - Tdap) [facility] Start: 1975 Hepatitis C screening Hepatitis C Sc irasema [facility] Start: 1957 Covid-19 Vaccine (#1) Covid-19 Vacci ne (#1) [facility] End: 04-19-2024 Radex spine lumbosacral minimum 4 views XR LUMBAR MOTION 4V AP/LAT/ FLEX/EXT Radiology Routine Spinal stenosis, lumbar region with neurogenic claudication 1 Occurrences starting 03/21/2023 until 04/19/2024 [facility] Work Phone: Comment on above: 1 Occurrences starti ng 03/21/2023 until 04/19/2024 [facility] Immunizations Immunization Date Immunization Notes Care Provider Fa [facility] 12-29-2020 influenza virus vaccine, unspecified formulation Shae Guillory [facility] 12-29-2020 SARS-CoV-2 (COVID-19 ) mRNA BNT-162b2 vax 7 [employer] [facility] [facility] [place] 06-09-2020 SARS-CoV-2 (COVID-19 ) mRNA BNT-162b2 vax Camryn NILL [facility] [place] 05-19-2020 SARS-CoV-2 (COVID-19 ) mRNA BNT-162b3 vax Camryn NILL [facility] [place] Comment on above: Result Comment: 2022: [id number] NEGATED: Highlighted row has not occurred!04-03-2022 influenza virus vaccine, unspecified formulation Camryn NILL [facility] [place] NEGATED: Highlighted row has not occurred!05-27-2019 influenza virus vaccine, live, attenuated, for intranasal use Camryn VAMSI [facility] [place] Payers Date Payer Category Payer Self-pay 2015 Private Health Insurance [facility] [employer] CHOICE PLUS [id number] 2015-Present [phone] [address] [address] [place] [address] HMO [id number] 1959 Private Health Insurance [id number] 1957 Unknown [id number] 2.16.840.1.224963.3.579.2 .647 1957 Unknown [id number] 2.16.840.1.216948.3.579.2 .356 1957 Unknown [id number] 2.16.840.1.977108.3.579.2 .593 1957 Unknown [id number] 2.16.840.1.584564.3.579.2 .593 1957 Unknown [id number] 2.16.840.1.107473.3.579.2 .593 1957 Unknown [id number] 2.16.840.1.096618.3.579.2 .593 1957 Unknown [id number] 2.16.840.1.465481.3.579.2 .593 1957 Unknown [id number] 2.16.840.1.735499.3.579.2 .593 1957 Unknown [id number] 2.16.840.1.426655.3.579.2 .593 1957 Unknown [id number] 2.16.840.1.018476.3.579.2 .727 1957 Unknown [id number] 2.16.840.1.761664.3.579.2 .727 1957 Unknown [id number] 2.16.840.1.158658.3.579.2 .7 1957 Unknown [id number] 2.16.840.1.738369.3.579.2 .1957 Unknown [id number] 2.16.840.1.641312.3.579.2 .1957 Unknown [id number] 2.16.840.1.089403.3.579.2 .1957 Unknown [id number] 2.16.840.1.526129.3.579.2 .1957 Unknown [id number] 2.16.840.1.798808.3.579.2 .7 1957 Unknown [id number] 2.16.840.1.272862.3.579.2 .1957 Unknown [id number] 2.16.840.1.188967.3.579.2 .1957 Unknown [id number] 2.16.840.1.087436.3.579.2 .7 1957 Unknown [id number] 2.16.840.1.248995.3.579.2 .1957 Unknown [id number] 2.16.840.1.185207.3.579.2 .72 Unknown Regular Insurance [id number] Unknown [id number] 2.16.840.1.466743.3.579.2 .531 Social History Date Type Detail Facility Start: 04-03-2022 End: 10-30-2022 Tobacco smoking status Never smoked tobacco (finding) [facility] [place] Tobacco smoking status Never [facility] Sex Assigned At Male [facility] Start: 1955 Sex Assigned At Male F [facility] Start: 09-12-2008 Alcohol intake Not Asked Jah wagner [facility] Start: 03-20-2023 Gender identity Identifies as male gender (finding) [facility] Start: 03-20-2023 Sexual orientation Heterosexual (fin haseeb) [facility] Functional Status Date Assessment Result Facility 12-05-2022 Functional Status N/A [facility] 10-30-2022 Functional Status N/A [facility] 09-04-2022 Functional Status No [facility] 04-03-2022 Functional Status N/A [facility] Clinical Notes 04-03-2022 to 03-21-2023 Alfonso Loyd PA-C - 03/21/2023 5:54 AM ESTSims, Gabbi N - 03/19/2023 10:11 AM EST Note Date & Type Note Facility 03-21-2023 Note HNO ID: [id number] Author: ALFONSO LOYD PA-C Service: ? Author Type: Physician Arabic Professor Type: Progress Notes Filed: 03/21/2023 05:56 Note Text: Requesting to see Dr. Keith Left leg pain, trouble walking, numbness in the leg, weakness. He has tried: PT, NSAID, steroids, MR, Tramadol Previous surgery x 3 at [facility] Lumbar MRI report with severe central stenosis of L3-4 and L4-5. XR ordered for an appointment with Dr. Keith. [facility] 03-21-2023 History of Present illness Narrative Requesting to see Dr. Keith Left leg pain, trouble walking, numbness in the leg, weakness. He has tried: PT, NSAID, steroids, MR, Tramadol Previous surgery x 3 at [facility] Lumbar MRI report with severe central stenosis of L3-4 and L4-5. XR ordered for an appointment with Dr. Keith. Patient name: Braden Payne Are you being referred by a Center for Spine Health Provider or Pain Management Provider at [facility]? No If answer is YES please schedule directly with surgeon, triage does not need to be completed. Is this a self-referral No If not, who is the Referring Provider Dr. Tobi Angeles Is this a 2nd opinion from another spine surgeon? Yes Were you offered surgery? No MRI/CT/myelogram within 12 months? Yes If NO , please refer to medical spine or PCP to complete above imaging, triage does not need to be completed If YES, please ask for the name/address of the facility where the MRI/CT/myelogram was completed: [place] [address] MRI/CT/myelogram viewable in Epic: No If not, please provide [phone] to fax in imaging reports for review. Also, please inform patient to hand carry imaging disc to appointment. XR (spine) within 12 months: Yes If YES, please ask for the name/address of the facility where the XR was completed: Dr. Tobi Angeles MD [address], [place] [address] Dr. Davis's patients: Have you had previous EMG/Nerve Conduction Study, Ultrasound, or MRI for these same symptoms? If YES, please ask for the name/address of the facility where they were completed: Requested provider (First and Last name): Dr. Keith Are you interested in a virtual visit if offered? Yes 1. Where are you having symptoms related to this visit? Lumbar spine Back pain No Leg pain Yes L leg Arm pain No Neck pain No 2. Are you having any of the following symptoms: drop foot-L Difficulty walking Yes Numbness Yes tingling/burning outside L leg Weakness Yes L leg Trouble using your hands? No 3. Have you had any injections or physical therapy in the last 12 months? No If YES then please ask for the name/address of the facility where the injections and/or physical therapy was completed Starting PT 03/20/2023 for drop foot [place] [address] [place] [id number] Have you tried any other kinds of non-surgical treatments in the last 12 months? (For example: NSAIDS, muscle relaxants, analgesics, oral steroids, Chiropractor, Acupuncture): oral steroids, muscle relaxants, NSAIDS 4. Are you currently taking daily prescribed narcotic medications for your current symptoms (For example Oxycodone, Hydrocodone, Tramadol, Morphine, Other)? Yes Tramadol 5. Have you had previous spinal surgery for this same symptoms? Yes If YES please ask for the name of facility/address of where the surgery was completed: 1999 laminectomy [facility] 2012 lumbar surgery [facility] 2019 lumbar surgery [facility] Additional Comments [phone] documented in this encounter [facility] 03-19-2023 Note HNO ID: [id number] Author: ?, ?, ? Service: ? Author Type: ? Type: Progress Notes Filed: 03/21/2023 05:56 Note Text: Patient name: Braden Payne Are you being referred by a [facility] Spine Health Provider or Pain Management Provider at [facility]? No If answer is YES please schedule directly with surgeon, triage does not need to be completed. Is this a self-referral No If not, who is the Referring Provider Dr. Tobi Angeles Is this a 2nd opinion from another spine surgeon? Yes Were you offered surgery? No MRI/CT/myelogram within 12 months? Yes If NO , please refer to medical spine or PCP to complete above imaging, triage does not need to be completed If YES,? please ask for the name/address of the facility where the MRI/CT/myelogram was completed: MRI [facility] [address] [place] [address] MRI/CT/myelogram viewable in Epic: No If not, please provide [phone] to fax in imaging reports for review. Also, please inform patient to hand carry imaging disc to appointment. XR (spine) within 12 months: Yes If YES,? please ask for the name/address of the facility where the XR was completed: Dr. Tobi Angeles MD [address], [place] [address] Dr. Davis's patients: Have you had previous EMG/Nerve Conduction Study, Ultrasound, or MRI for these same symptoms? If YES,? please ask for the name/address of the facility where they were completed: Requested provider (First and Last name): Dr. Keith Are you interested in a virtual visit if offered? Yes 1. Where are you having symptoms related to this visit? Lumbar spine Back pain No Leg pain Yes L leg Arm pain No Neck pain No 2. Are you having any of the following symptoms: drop foot-L Difficulty walking Yes Numbness Yes tingling/burning outside L leg Weakness Yes L leg Trouble using your hands? No 3. Have you had any injections or physical therapy in the last 12 months? No If YES then please ask for the name/address of the facility where the injections and/or physical therapy was completed Starting PT 03/20/2023 for drop foot [facility] [address] [place] [address] Have you tried any other kinds of non-surgical treatments in the last 12 months? (For example: NSAIDS, muscle relaxants, analgesics, oral steroids, Chiropractor, Acupuncture): oral steroids, muscle relaxants, NSAIDS 4. Are you currently taking daily prescribed narcotic medications for your current symptoms (For example Oxycodone, Hydrocodone, Tramadol, Morphine, Other)? Yes Tramadol 5. Have you had previous spinal surgery for this same symptoms? Yes If YES? please ask for the name of facility/address of where the surgery was completed: 1999 laminectomy [facility] 2012 lumbar surgery [facility] 2019 lumbar surgery [facility] Additional Comments [phone] [facility] 12-05-2022 Hospital Discharge instructions Patient Education 12/05/2022 [...] treatment? Where to find more information [employer] [employer]: www.cancer.org [place] [employer]: www.auanet.org Contact a health care [...] provider. Document Revised: 08/20/2021 Document Reviewed: 08/20/2021 [employer] Patient Education 2022 [employer]. Follow Up Care 11/27/2022 14:43:00 With:Kahlil JERNIGAN, MARLENA Salmon, URO Address: When: Unknown [facility] 10-30-2022 Hospital Discharge instructions Patient Education 10/30/2022 [...] treatment? Where to find more information The [place] [employer]: www.cancer.org [employer] [employer]: www.auanet.org Contact a health care [...] provider. Document Revised: 08/20/2021 Document Reviewed: 08/20/2021 [employer] Patient Education 2022 [employer]. Follow Up Care 09/04/2022 08:48:35 With:Kahlil JERNIGAN, MARLENA Salmon, URO Address: When:Within 2 Month(s) Comments:w/PSA [facility] 09-04-2022 Hospital Discharge instructions Patient Education 09/04/2022 [...] treatment? Where to find more information The [place] [employer]: www.cancer.org [employer]: www.auanet.org Contact a health care [...] provider. Document Revised: 08/20/2021 Document Reviewed: 08/20/2021 [employer] Patient Education 2022 [employer]. Follow Up Care 08/26/2022 10:02:45 With:Kahlil JERNIGAN, MARLENA Salmon, URO Address: When:Within 4 Week(s) Comments:w/ PSA [facility] 05-07-2022 Hospital Discharge instructions Follow Up Care 05/07/2022 15:08:01 With:VAMSI JERNIGAN, OJ Kraus Address: [address] [place] [phone]- When: only if needed [facility] [place] 04-29-2022 Note Patient: LISETTE PAYNE Age: 67 years Sex: Male : 1955 Associated Diagnoses: None Author: Camryn SNELL MD Subjective no changes to [facility] Comment on above: Result Comment: Elec tronically Signed By: Camryn SNELL MD\.br\Date and Time Signed: 04/29/22 08:33 EST 04-16-2022 Note [id number] [facility] 04-03-2022 Note Chief Complaint consultation for ventral hernia HPI Staff 67 year old male presents on consultation from [place] ED for ventral hernia. Presented to ED [...] htn, lumbar radiculopathy, h/o SVT, referred from [facility] ED for possible abd wall hernia; [...] Daily, Not taki (more content not included)... [facility] Comment on above: Result Comment: Elec tronically Signed By: Camryn SNELL MD\.br\Date and Time Signed: 04/03/22 16:28 EST Evaluation + Plan note No data available for this section [facility] [place] Evaluation + Plan note Future Appointments Appointment Date:05/21/2022 02:40:00 PM Scheduled Provider:Camryn SNELL MD Location:[facility] Appointment Type: Post Op 15 [facility] [place] Evaluation + Plan note Future Appointments Appointment Date:09/24/2022 01:40:00 PM Scheduled Provider:Camryn SNELL MD Location:[facility] Appointment Type: Established 15 Appointment Date:09/25/2022 08:45:00 AM Scheduled Provider:Shae Guillory MD Location:[facility] Appointment Type:URO Office Visit Diagnostic Tests PendingPSA Total 09/04/22PSA Free & Total 09/04/22 [facility] Evaluation + Plan note Future Appointments Appointment Date:01/08/2023 09:00:00 AM Scheduled Provider:Shae Guillory MD Location:[facility] Appointment Type:URO Office Visit Diagnostic Tests PendingPSA Free & Total 10/30/22 [facility] Evaluation + Plan note Future Appointments Appointment Date:04/23/2023 09:45:00 AM Scheduled Provider:Shae Guillory MD Location:[facility] Appointment Type:URO Office Visit Diagnostic Tests PendingPSA Free & Total 12/05/22 [facility] Evaluation note No assessment inform ation available [facility] Work Phone: Evaluation note Diagnosis Spinal stenosis, lumbar region with neurogenic claudication- Primary documented in this encounter [facility] Discharge instructions No data available for this section [facility] [place] Progress note No data available for this section [facility] [place] Reason for referral (narrative)* Diagnostic Procedure Only (Routine) - Pending Review Specialty Diagnoses / Procedures Referred By Lencho atkins Referred To Contact XR IMAGING Diagnoses Spinal stenosis, lumbar region with neurogenic claudication Procedures XR LUMBAR MOTION 4V AP/LAT/ FLEX/EXT RADEX SPINE LUMBOSACRAL MINIMUM 4 VIEWS Alfonso Loyd PA-C [address] [facility] [place] [address] Xr Imaging [id number] Referral ID Status Reason Start Date Expiration Date Visits Requested Visits Authorized [id number] Pending Review Auto-Generat ed Referral 03/21/2023 04/19/2024 1 1 [facility] Summary Purpose Family History No Family History Records FoundNo Family History Records FoundNo Family History Records FoundNo Family History Records FoundNo Family History Records Found No data available for this section No Family History Records FoundNo Family History Records Found Advance Directives No [...] section and content) DATE CREATED AUTHOR 05/16/2020 [facility] DATE CREATED AUTHOR AUTHOR'S ORGANIZ ATION 09/06/2020 [facility] DATE CREATED AUTHOR AUTHOR'S ORGANIZ ATION 05/18/2022 [facility] DATE CREATED AUTHOR AUTHOR'S ORGANIZ ATION 06/13/2022 [facility] DATE CREATED AUTHOR AUTHOR'S ORGANIZ ATION 11/06/2022 [facility] DATE CREATED AUTHOR AUTHOR'S ORGANIZ ATION 03/09/2023 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 [facility] [employer] [facility]. provides no warranty or guarantee of the accuracy or completeness of information in this document.
[2023-03-31 09:43] LABS: SARS-CoV-2 Ag NEGATIVE (NEGATIVE)
== END 2023-03-31 09:08 | disposition home or self-care (01) ==
LOC: LAB 09:07
PROVIDERS: PCP Family Medicine; Visit Provider Family Medicine
DX: R09.81 Nasal congestion (principal)
CPT/HCPCS: 87811

== ENCOUNTER 2023-08-27 17:22 | Outpatient (OUT) | payer OTHER, SELFPAY ==
--- NOTE | 2023-08-27 17:29 | US_ITS ---
The [address] [address] Patient Name: BRADEN PAYNE MRN: [id number] date: 1955 Sex: M Assigned Patient Location: [place] Current Patient Location: Accession/Order Number: [id number] Exam Date: 08/27/2023 17:37 Report Date: 08/28/2023 07:06 At the request of: ESTER CAIN Procedure: US venous doppler LE BI EXAMINATION: US venous doppler LE BI HISTORY: EDEMA R60.9 COMPARISON: No relevant comparison available. FINDINGS: REGION: Bilateral lower extremities THROMBI: None. COMPRESSIBILITY: Normal compressibility. FLOW: Normal waveform and antegrade flow between 5 and 20 cm/s. OTHER: None. US/US venous doppler LE BI IMPRESSION: 1. No deep vein thrombus within the right or left lower extremity. Electronically authenticated by: WILTON NICHOLE Date: 08/28/2023 07:06
== END 2023-08-27 17:23 | disposition home or self-care (01) ==
LOC: US 17:23
PROVIDERS: PCP Family Medicine; Visit Provider Family Medicine
DX: R60.9 Edema, unspecified (principal)
CPT/HCPCS: 93970

== ENCOUNTER 2023-08-28 11:40 | Outpatient (OUT) | payer OTHER, SELFPAY ==
--- OUTSIDE RECORDS SUMMARY | 2023-08-28 11:57 | XMS_ITS | CCD ---
Author Organization [facility] Care Team Providers Care Fumigator And Sterilizer Name Role Phone ESTER CAIN Referring Unavailable ESTER CAIN Primary Care Unavailable DOMENIC KOHLER Attending Unavailable DOMENIC KOHLER Admitting Unavailable Ester Cain Primary Care Physician Dr. Ester Cain Primary Care Unavail able Edenilson Knight Consulting Unavailable HOY ., DR NORMAN Primary Care Unavailable LATISHA [...] Unavailable HOY ., DR NORMAN Consulting Unavailable ANT ., DR NORMAN Attending Unavailable MD Ester Cain Primary Care Provider [phone] MD Shae Guillory Attending Provider [phone] Ester Cain M Primary Care Unavailable Lue, Shae M Attending Unavailable Lue, Shae M Admitting Unavailable NILL, Camryn R Attending Unavailable NILL, Camryn R Attending Unavailable NILL, Camryn R Attending Unavailable Hoy, Ester Referring Unavailable NILL, Camryn R Attending Unavailable NILL, Camryn R Attending Unavailable Lue, Shae M. Attending Unavailable Lue, Shae M. Attending Unavailable Lue, Shae M. Attending Unavailable Hoy, Ester Referring Unavailable Lue, Shae M. Attending Unavailable Lue, Shae M. Attending Unavailable Lue, Shae M. Attending Unavailable NILL, Camryn R Admitting Unavailable NILL, Camryn R Attending Unavailable NILL, Camryn R Referring Unavailable NILL, Camryn R Attending Unavailable NILL, Camryn R Referring Unavailable NILL, Camryn R Admitting Unavailable Ester Cain MD Primary Care Provider [phone] Ester Cain MD Primary Care Provider [phone] PELLE, KATHERINE Referring Unavailable HOY, ESTER M Primary Care Unavailable PELLE, KATHERINE Referring Unavailable HOY, ESTER M Primary Care Unavailable BONUS, ALFONSO M Referring Unavailable HOY, ESTER M Primary Care Unavailable HOY, ESTER M Primary Care Unavailable HOY, ESTER M Primary Care Unavailable HOY, ESTER M Primary Care Unavailable PELLE, KATHERINE Referring Unavailable HOY, ESTER M Primary Care Unavailable PELLE, KATHERINE Referring Unavailable HOY, ESTER M Primary Care Unavailable TELLO GASPAR Referring Unavailable PELLE, KATHERINE Attending Unavailable HOY, ESTER M Primary Care Unavailable BONUS, ALFONSO Referring Unavailable HOY, ESTER M Primary Care Unavailable PELLE, KATHERINE Referring Unavailable HOY, ESTER M Primary Care Unavailable PELLE, KATHERINE Admitting Unavailable PELLE, KATHERINE Attending Unavailable Allergies Allergy Classification Reported Allergen(s) Allergy Type Date of Onset Reaction(s) Facility Penicillins (antibiotic) (1 source) Penicillins Drug Allergy 1 [facility] Rep[facility] (7 sources) Penicillin; Translations: [penicillin] Drug Allergy Eruption of skin (disorder) General [facility] (3 sources) Penicillins; Translations: [PENICILLINS] Drug allergy (disorder) 7 [facility] Repository (1 source) Unable to Assess Drug allergy (disorder) 3 [facility] Repository (1 source) No Known Medication Allergies; Translations: [No Known Medication Allergies] Propensity to adverse reactions (disorder) [facility] Repository (19 sources) Penicillins Propensity to adverse reactions 7 Rash [facility] Medications Current Medications Medication Drug Class(es) [...] 0 Start Date: 09/26/20 Status: Ordered carvedilol 12.5 mg oral tablet (20 sources) alpha-Adrenergic Janak, beta-Adrenergic Janak Start: 03-11-2023 take 1 tablet by mouth twice daily at mealtime carvedilol (COREG) 12.5 mg tablet Take 12.5 mg by mouth two times a day with meals. 0 03/11/2023 Active Start: 09-11-2022 take 1 tablet by raya th twice daily carvedilol 6.25 mg Tab 6.25 mg = 1 tab(s), Oral, BID, Refills(s) 0 Start Date: 09/11/22 Status: Ordered Start: 04-03-2022 take 1 tablet by raya th twice daily carvedilol 25 mg Tab 25 mg = 1 tab(s), Oral, BID, Refills(s) 0, High blood pressure Start Date: 04/03/22 Status: Ordered Comment on above: Take 12.5 mg by mout h two times a day with meals. Celebrate Multivitamin (5 sources) Start: take 1 tablet by mouth once daily Celebrate Multivitamin 1 tab(s), Oral, Daily, Prophylaxis Start Date: 04/22/22 Status: Ordered Fish Oils (3 sources) Start: 023 take 1 capsule by mouth once daily Fish Oil 1 cap, Oral, Daily, Prophylaxis Start Date: 04/22/22 Status: Ordered isoniazid 300 mg oral tablet (1 source) Antimycobacterial Start: 021 take 1 tablet by mouth once daily isoniazid 300 mg Tab 300 mg = 1 tab(s), Oral, Daily, Refills(s) 0 Start Date: 09/26/20 Status: Ordered lisinopril 20 mg oral tablet (18 sources) Angiotensin Converting Enzyme Inhibitor Start: 023 take 1 tablet by mouth once daily lisinopril 20 mg Tab 20 mg = 1 tab(s), Oral, Daily, Refills(s) 0 Start Date: 04/03/22 Status: Ordered Start: 07-04-2006 End: 08-06-2023 take 1 tablet by mouth once daily lisinopril 10 mg ORAL Tab Take one(1) tablet daily. 0 07/04/2006 08/06/2023 Discontinued (Discontinued by Patient) Comment on above: Take one(1) tablet d aily. magnesium oxide 500 mg oral capsule (9 sources) Start: 08-06-2023 take 1 capsule by mouth twice daily Magnesium Oxide 500 mg cap Take 1 capsule by mouth two times a day. 0 08/06/2023 Active Start: 09-26-2020 take 1 tablet by raya th once daily magnesium oxide 400 mg Tab 400 mg = 1 tab(s), Oral, Daily, Refills(s) 0, Prophylaxis Start Date: 09/26/20 Status: Ordered mupirocin 0.02 mg/mg topical ointment (3 sources) RNA Synthetase Inhibitor Antibacterial Start: 08-06-2023 End: 08-11-2023 mupirocin (BACTROBAN) 2 % ointment two times a day for 5 days. Apply 0.5 inch with cotton swab (Q-tip) to each nostril in the morning and evening for 5 days prior to and including day of surgery. 22 g 0 08/06/2023 08/11/2023 Active sildenafil 100 mg oral tablet (2 sources) Phosphodiesterase 5 Inhibitor Start: 09-11-2022 take 1 tablet by mouth once daily as needed sildenafil 100 mg Tab 100 mg = 1 tab(s), Oral, Daily, PRN as needed, Refills(s) 0 Start Date: 09/11/22 Status: Ordered tiZANidine 4 mg oral tablet (20 sources) Central alpha-2 Adrenergic Agonist Start: 03-13-2023 take 2 tablets by mouth once daily at bedtime tiZANidine (ZANAFLEX) 4 mg tablet Take 2 tablets by mouth daily at bedtime. 0 03/13/2023 Active Start: 04-03-2022 take 2 tablets by mo uth at bedtime tiZANidine 4 mg Tab 8 mg = 2 tab(s), Oral, Bedtime, Refills(s) 0, Insomnia Start Date: 04/03/22 Status: Ordered Comment on above: Take 2 tablets by mo uth daily at bedtime. turmeric extract 500 mg oral capsule (5 sources) Start: 04-22-2022 take 1 capsule by mouth once daily turmeric 500 mg oral capsule 500 mg = 1 cap(s), Oral, Daily, Prophylaxis Start Date: 04/22/22 Status: Ordered Completed/Discontinued Medications Medication Drug Class(es) Dates Sig (Normalized) Sig (Original) fluorouracil 50 mg/ml topical cream (17 sources) Nucleoside Metabolic Inhibitor Start: 07-04-2006 End: 08-06-2023 Fluorouracil 5 % TOPICAL Crea bid 15 days R and L lat face to behind ears as discussed--wait 2 wk before starting 45gm 0 07/04/2006 08/06/2023 Discontinued (Discontinued by Patient) Comment on above: bid 15 days R and L lat face to behind ears as discussed--wait 2 wk before starting Problems Active Problems Problem Classification Problem Date Documented Date Episodic/Chronic Abdominal hernia (16 sources) Hernia of anterior abdominal wall; Translations: [Ventral hernia without obstruction or gangrene] Onset: 03-18-2022 Episodic Abdominal pain (11 sources) Epigastric pain; Translations: [Epigastric pain] Onset: 03-16-2022 Episodic Allergic reactions (5 sources) Allergy to penicillin; Translations: [Allergy status to penicillin] Onset: 08-06-2023 08-06-2023 Episodic Cardiac dysrhythmias (17 sources) Supraventricular tachycardia; Translations: [Ventricular premature beats] Onset: 08-06-2023 09-26-2020 Chronic Deficiency and other anemia (1 source) Iron deficiency anemia; Translations: [Iron deficiency anemia, unspecified] 07-11-2023 Episodic Deficiency and other anemia (1 source) Iron deficiency anemia, unspecified; Translations: [Iron deficiency anemia, unspecified iron deficiency anemia type] Onset: 08-06-2023 Episodic Disorders of lipid metabolism (6 sources) Pure hypercholesterolemia, unspecified; Translations: [Pure hypercholesterolemia] Onset: 03-06-2022 Chronic Diverticulosis and diverticulitis (8 sources) Diverticular disease 09-26-2020 Chronic Essential hypertension (11 sources) Hypertensive disorder; Translations: [Essential hypertension] Onset: 08-06-2023 05-27-2019 Chronic Genitourinary symptoms and ill-defined conditions (2 sources) Blood in urine; Translations: [Gross hematuria] Onset: 12-05-2022 Episodic Hemorrhoids (6 sources) Internal hemorrhoids 09-26-2020 Episodic Hyperplasia of prostate (6 sources) Benign prostatic hypertrophy with outflow obstruction; Translations: [Benign prostatic hyperplasia with lower urinary tract symptoms] Onset: 09-04-2022 Chronic Other acquired deformities (5 sources) Other secondary scoliosis, site unspecified; Translations: [Disorder of bone and cartilage, unspecified] Onset: 05-13-2023 04-30-2023 Chronic Other and unspecified benign neoplasm (6 sources) Dermal cellular nevus 06-15-2019 Episodic Other diseases of kidney and ureters (1 source) Urinary tract obstruction; Translations: [Other obstructive and reflux uropathy] Onset: 09-04-2022 Episodic Other nervous system disorders (2 sources) Other chronic pain; Translations: [Chronic low back pain, unspecified back pain laterality, unspecified whether sciatica present] Onset: 05-04-2023 Chronic Other nervous system disorders (1 source) Other acute postprocedural pain; Translations: [Acute post-operative pain] Onset: 08-20-2023 Episodic Other non-epithelial cancer of skin (6 [...] disorders (6 sources) Skin tag 09-28-2020 Episodic Residual codes; unclassified (1 source) H/O Spinal surgery; Translations: [Other specified postprocedural states] 07-11-2023 Episodic Spondylosis; intervertebral disc disorders; other back problems (6 sources) Lumbar spondylosis 09-26-2020 Chronic Unclassified (6 sources) Patient encounter status 09-28-2020 Unclassified (2 sources) Chronic low back pain, unspecified back pain laterality, unspecified whether sciatica present; Translations: [Chronic low back pain, unspecified back pain laterality, unspecified whether sciatica present] Onset: 05-04-2023 Varicose veins of lower extremity (2 sources) Varicose veins of lower extremity 09-11-2022 Episodic Past or Other Problems Problem Classification Problem Date Documented Date Episodic/Chronic Neoplasms of unspecified nature or uncertain behavior (20 sources) Neoplasm of uncertain behavior of skin; Translations: [Neoplasm of uncertain behavior of skin] Onset: 08-05-2008 05-27-2019 Episodic Other and unspecified benign neoplasm (20 sources) Benign neoplasm of skin; Translations: [Other benign neoplasm of skin, unspecified] Onset: 08-05-2008 08-05-2008 Episodic Other skin disorders (19 sources) Seborrheic keratosis; Translations: [Other seborrheic keratosis] Onset: 09-08-2008 09-08-2008 Episodic Residual codes; unclassified (2 sources) Other specified postprocedural states; Translations: [History of laminectomy] Onset: 05-13-2023 Episodic Spondylosis; intervertebral disc disorders; other back problems (18 sources) Lumbar radiculopathy; Translations: [Radiculopathy, cervical region] Onset: 01-18-2022 09-26-2020 Episodic Results Test Name Value Interpretation Reference Range Facility CNCOon 08-25-2023 CNCO Letter Text Normal [facility] Basic metabolic 2000 panelon 08-22-2023 Anion gap [Moles/Vol] 9 mmol/L Normal 8-15 [facility] Comment on above: Order Comment: Speci men Type: BLOOD SPECIMENOrdering Facility: [facility] Address: [address] [id number] Performed By: #### 2 4321-2 ####[facility] LABCLIA [id number] [address] [address] [place] Calcium [Mass/Vol] 9.4 mg/dL Normal 8.5-10.2 [facility] Comment on above: Order Comment: Speci men Type: BLOOD SPECIMENOrdering Facility: [facility] Address: [address] [place], [place] [address] Performed By: #### 2 4321-2 ####[facility] LABCLIA [id number] [place] [address] [place] Chloride [Moles/Vol] 103 mmol/L Normal 98-107 [facility] Comment on above: Order Comment: Speci men Type: BLOOD SPECIMENOrdering Facility: [facility] Address: [address] [place] [address] Performed By: #### 2 4321-2 ####[facility] LABCLIA [id number] [place] [address] [place] CO2 [Moles/Vol] 26 mmol/L Normal 22-30 [facility] Comment on above: Order Comment: Speci men Type: BLOOD SPECIMENOrdering Facility: [facility] Address: [address] [place], [place] [address] Performed By: #### 2 4321-2 ####[facility] LABCLIA [id number] [facility] [place] [id number] [place] Creatinine [Mass/Vol] 0.77 mg/dL Normal 0.73-1.22 [facility] Comment on above: Order Comment: Speci men Type: BLOOD SPECIMENOrdering Facility: [facility] Address: [address] [place], [place] [address] Performed By: #### 2 4321-2 ####[facility] LABCLIA [id number] [place] [address] [place] Creatinine and Glomerular filtration rate.predicted panel (S/P/Bld) 99 mL/min/1.73m??? Normal >=60 [facility] Comment on above: Order Comment: Roberto Carlos lion Type: BLOOD SPECIMENOrdering Facility: [facility] Address: [address] [place] [address] Result Comment: Yesica mated Glomerular Filtration Rate (eGFR) is calculated using the 2020 CKD-EPI creatinine equation. This equation utilizes serum creatinine, sex, and age as parameters. The creatinine assay has traceable calibration to isotope dilution-mass spectrometry. Refer to KDIGO guidelines for clinical interpretation. In patients with unstable renal function, e.g. those with acute kidney injury, the eGFR may not accurately reflect actual GFR. Performed By: #### 2 4321-2 ####[facility] LABCLIA [id number] [place] [address] [place] Glucose [Mass/Vol] 112 mg/dL High 74-99 [facility] Comment on above: Order Comment: Roberto Carlos lion Type: BLOOD SPECIMENOrdering Facility: [facility] Address: [address] [place] [address] Result Comment: The [place] [employer] (ADA) provides guidance for cutoff values for fasting glucose and random glucose. The ADA defines fasting as no caloric intake for at least 8 hours. Fasting plasma glucose results between 100 to 125 mg/dL indicate increased risk for diabetes (prediabetes). Fasting plasma glucose results greater than or equal to 126 mg/dL meet the criteria for diagnosis of diabetes. In the absence of unequivocal hyperglycemia, results should be confirmed by repeat testing. In a patient with classic symptoms of hyperglycemia or hyperglycemic crisis, random plasma glucose results greater than or equal to 200 mg/dL meet the criteria for diagnosis of diabetes. Reference: Standards of Medical Care in Diabetes 2016, [place] [employer]. Diabetes Care. 2016.39(Suppl 1). Performed By: #### 2 4321-2 ####[facility] LABCLIA [id number] [place] [address] [place] Potassium [Moles/Vol] 5.1 mmol/L Normal 3.7-5.1 [facility] Comment on above: Order Comment: Speci men Type: BLOOD SPECIMENOrdering Facility: [facility] Address: [address] [place] [address] Performed By: #### 2 4321-2 ####[facility] LABCLIA [id number] [place] [address] [place] Sodium [Moles/Vol] 138 mmol/L Normal 136-144 [facility] Comment on above: Order Comment: Speci men Type: BLOOD SPECIMENOrdering Facility: [facility] Address: [address] [place] [place] [address] Performed By: #### 2 4321-2 ####[facility] LABCLIA [id number] [place] [address] [place] Urea nitrogen [Mass/Vol] 16 mg/dL Normal 9-24 [facility] Comment on above: Order Comment: Speci men Type: BLOOD SPECIMENOrdering Facility: [facility] Address: [address] [place] [place] [address] Performed By: #### 2 4321-2 ####[facility] LABIA [id number] [place] [address] [place] CBC panel Auto (Bld)on 08-21 Erythrocyte distribution width (RBC) [Ratio] 13.2 % Normal 11.5-15.0 [facility] Comment on above: Order Comment: Speci men Type: BLOOD SPECIMENOrdering Facility: [facility] Address: [address] [place] [address] Performed By: #### 5 8410-2 ####[facility] LABIA [id number] [place] [address] [place] Hematocrit (Bld) [Volume fraction] 34.6 % Low 39.0-51.0 [facility] Comment on above: Order Comment: Speci men Type: BLOOD SPECIMENOrdering Facility: [facility] Address: [address] [place], [place] [id number] Performed By: #### 5 8410-2 ####[facility] LABCLIA [id number] [place] [address] [place] Hemoglobin (Bld) [Mass/Vol] 11.6 g/dL Low 13.0-17.0 [facility] Comment on above: Order Comment: Speci men Type: BLOOD SPECIMENOrdering Facility: [facility] Address: [address] [place] [address] Performed By: #### 5 8410-2 ####[facility] LABIA [id number] [place] [address] [place] MCH (RBC) [Entitic mass] 31.9 pg Normal 26.0-34.0 [facility] Comment on above: Order Comment: Speci men Type: BLOOD SPECIMENOrdering Facility: [facility] Address: [address] [place] [place] [address] Performed By: #### 5 8410-2 ####[facility] LABIA [id number] [place] [address] [place] MCHC (RBC) [Mass/Vol] 33.5 g/dL Normal 30.5-36.0 [facility] Comment on above: Order Comment: Speci men Type: BLOOD SPECIMENOrdering Facility: [facility] Address: [address] [place] [address] Performed By: #### 5 8410-2 ####[facility] LABIA [id number] [place] [address] [place] MCV (RBC) [Entitic vol] 95.1 fL Normal 80.0-100.0 [facility] Comment on above: Order Comment: Speci men Type: BLOOD SPECIMENOrdering Facility: [facility] Address: [address] [place] [address] Performed By: #### 5 8410-2 ####[facility] LABIA [id number] [place] [address] [place] Nucleated RBC (Bld) [#/Vol] 10*3/uL Normal <0.01 [facility] Comment on above: Order Comment: Speci men Type: BLOOD SPECIMENOrdering Facility: [facility] Address: [address] [place] [address] Performed By: #### 5 8410-2 ####[facility] LABCLIA [id number] [place] [address] [place] Platelet mean volume (Bld) [Entitic vol] 9.7 fL Normal 9.0-12.7 [facility] Comment on above: Order Comment: Speci men Type: BLOOD SPECIMENOrdering Facility: [facility] Address: [address] [place] [address] Performed By: #### 5 8410-2 ####[facility] LABCLIA [id number] [place] [address] [place] Platelets (Bld) [#/Vol] 393 10*3/uL Normal 150-400 [facility] Comment on above: Order Comment: Speci men Type: BLOOD SPECIMENOrdering Facility: [facility] Address: [address] [place] [address] Performed By: #### 5 8410-2 ####[facility] LABIA [id number] [place] [address] [place] RBC (Bld) [#/Vol] 3.64 10*6/uL Low 4.20-6.00 [facility] Comment on above: Order Comment: Speci men Type: BLOOD SPECIMENOrdering Facility: [facility] Address: [address] [place] [address] Performed By: #### 5 8410-2 ####[facility] LABCLIA [id number] [place] [address] [place] WBC (Bld) [#/Vol] 17.35 10*3/uL High 3.70-11.00 [facility] Comment on above: Order Comment: Speci men Type: BLOOD SPECIMENOrdering Facility: [facility] Address: [address] [place] [address] Performed By: #### 5 8410-2 ####[facility] LABCLIA [id number] [place] [address] [place] THERAPY NTon 08-22-2023 THERAPY NT HNO ID: [id number] Author: DONN ARDON, PT Service: Physical Therapy Author Type: Physical Therapist Type: Therapy (PT/OT/Speech/Resp) Filed: 08/22/2023 12:08 Note Text: PHYSICAL THERAPY MISSED VISIT SERVICE DATE: 08/22/2023 SERVICE TIME: 1000 ROOM: [address] [address] Patient not seen due to Refused Treatment. Discussed functional mobility with pt, answered all questions within scope. Pt reports no concerns regarding d/c to home, declined ambulation with PT at this time. SIGNATURE: Donn Ardon, PT PATIENT NAME: Braden Rodriguez DATE: August 22, 2023 TIME: 12:08 PM Normal [facility] Basic metabolic 2000 panelon 08-21-2023 Anion gap [Moles/Vol] 10 mmol/L Normal 8-15 [facility] Comment on above: Order Comment: Speci men Type: BLOOD SPECIMENOrdering Facility: [facility] Address: [address] [place] [address] Performed By: #### 2 4321-2 ####[facility] LABCLIA [id number] [place] [address] [place] Calcium [Mass/Vol] 9.5 mg/dL Normal 8.5-10.2 [facility] Comment on above: Order Comment: Speci men Type: BLOOD SPECIMENOrdering Facility: [facility] Address: [address] [place] [address] Performed By: #### 2 4321-2 ####[facility] LABCLIA [id number] [place] [address] [place] Chloride [Moles/Vol] 106 mmol/L Normal 98-107 [facility] Comment on above: Order Comment: Speci men Type: BLOOD SPECIMENOrdering Facility: [facility] Address: [address] [place], [place] [address] Performed By: #### 2 4321-2 ####[facility] LABCLIA [id number] [place] [id number] [place] CO2 [Moles/Vol] 22 mmol/L Normal 22-30 [facility] Comment on above: Order Comment: Speci men Type: BLOOD SPECIMENOrdering Facility: [facility] Address: [address] [place] [address] Performed By: #### 2 4321-2 ####[facility] LABIA [id number] [place] [address] [place] Creatinine [Mass/Vol] 0.84 mg/dL Normal 0.73-1.22 [facility] Comment on above: Order Comment: Speci men Type: BLOOD SPECIMENOrdering Facility: [facility] Address: [address] [place] [address] Performed By: #### 2 4321-2 ####[facility] LABIA [id number] [place] [address] [place] Creatinine and Glomerular filtration rate.predicted panel (S/P/Bld) 96 mL/min/1.73m??? Normal >=60 [facility] Comment on above: Order Comment: Speci men Type: BLOOD SPECIMENOrdering Facility: [facility] Address: [address] [place] [address] Result Comment: Yesica mated Glomerular Filtration Rate (eGFR) is calculated using the 2020 CKD-EPI creatinine equation. This equation utilizes serum creatinine, sex, and age as parameters. The creatinine assay has traceable calibration to isotope dilution-mass spectrometry. Refer to KDIGO guidelines for clinical interpretation. In patients with unstable renal function, e.g. those with acute kidney injury, the eGFR may not accurately reflect actual GFR. Performed By: #### 2 4321-2 ####[facility] LABCLIA [id number] [place] [address] [place] Glucose [Mass/Vol] 140 mg/dL High 74-99 [facility] Comment on above: Order Comment: Speci men Type: BLOOD SPECIMENOrdering Facility: [facility] Address: [address] [place] [address] Result Comment: The [place] Diabetes [employer] (ADA) provides guidance for cutoff values for fasting glucose and random glucose. The ADA defines fasting as no caloric intake for at least 8 hours. Fasting plasma glucose results between 100 to 125 mg/dL indicate increased risk for diabetes (prediabetes). Fasting plasma glucose results greater than or equal to 126 mg/dL meet the criteria for diagnosis of diabetes. In the absence of unequivocal hyperglycemia, results should be confirmed by repeat testing. In a patient with classic symptoms of hyperglycemia or hyperglycemic crisis, random plasma glucose results greater than or equal to 200 mg/dL meet the criteria for diagnosis of diabetes. Reference: Standards of Medical Care in Diabetes 2016, [place] [employer]. Diabetes Care. 2016.39(Suppl 1). Performed By: #### 2 4321-2 ####[facility] LABCLIA [id number] [place] [address] [place] Potassium [Moles/Vol] 4.4 mmol/L Normal 3.7-5.1 [facility] Comment on above: Order Comment: Speci men Type: BLOOD SPECIMENOrdering Facility: [facility] Address: [address] [place] [address] Performed By: #### 2 4321-2 ####[facility] LABCLIA [id number] [place] [address] [place] Sodium [Moles/Vol] 138 mmol/L Normal 136-144 [facility] Comment on above: Order Comment: Speci men Type: BLOOD SPECIMENOrdering Facility: [facility] Address: [address] [place] [address] Performed By: #### 2 4321-2 ####[facility] LABCLIA [id number] [place] [address] [place] Urea nitrogen [Mass/Vol] 14 mg/dL Normal 9-24 [facility] Comment on above: Order Comment: Speci men Type: BLOOD SPECIMENOrdering Facility: [facility] Address: [address] [place] [address] Performed By: #### 2 4321-2 ####[facility] LABCLIA [id number] [place] [id number] [place] CASE MANAGEMon 08-21-2023 CASE MANAGEM HNO ID: [id number] Author: ANGELITO ZENDEJAS RN Service: ? 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 Team aware via [employer] chat. Per spouse Marycarmen [phone] discharge transportation will be provided by a family member. CM to continue to follow. SIGNATURE: Angelito Zendeajs RN PATIENT NAME: Braden Rodriguez DATE: August 21, 2023 TIME: 2:52 PM PAGER/CONTACT #: [phone] Normal [facility] CBC panel Auto (Bld)on 08-20 Erythrocyte distribution width (RBC) [Ratio] 13.1 % Normal 11.5-15.0 [facility] Comment on above: Order Comment: Speci men Type: BLOOD SPECIMENOrdering Facility: [facility] Address: [address] [place] [address] Performed By: #### 5 8410-2 ####[facility] LABIA [id number] [place] [id number] [place] Hematocrit (Bld) [Volume fraction] 34.2 % Low 39.0-51.0 [facility] Comment on above: Order Comment: Speci men Type: BLOOD SPECIMENOrdering Facility: [facility] Address: [address] [place] [address] Performed By: #### 5 8410-2 ####[facility] LABCLIA [id number] [place] [address] [place] Hemoglobin (Bld) [Mass/Vol] 11.6 g/dL Low 13.0-17.0 [facility] Comment on above: Order Comment: Speci men Type: BLOOD SPECIMENOrdering Facility: [facility] Address: [address] [place] [address] Performed By: #### 5 8410-2 ####[facility] LABCLIA [id number] [place] [address] [place] MCH (RBC) [Entitic mass] 31.7 pg Normal 26.0-34.0 [facility] Comment on above: Order Comment: Speci men Type: BLOOD SPECIMENOrdering Facility: [facility] Address: [address] [place] [address] Performed By: #### 5 8410-2 ####[facility] LABCLIA [id number] [place] [address] [place] MCHC (RBC) [Mass/Vol] 33.9 g/dL Normal 30.5-36.0 [facility] Comment on above: Order Comment: Speci men Type: BLOOD SPECIMENOrdering Facility: [facility] Address: [address] [place] [place] [address] Performed By: #### 5 8410-2 ####[facility] LABCLIA [id number] [place] [address] [place] MCV (RBC) [Entitic vol] 93.4 fL Normal 80.0-100.0 [facility] Comment on above: Order Comment: Speci men Type: BLOOD SPECIMENOrdering Facility: [facility] Address: [address] [place] [place] [address] Performed By: #### 5 8410-2 ####[facility] LABCLIA [id number] [place] [address] [place] Nucleated RBC (Bld) [#/Vol] 10*3/uL Normal <0.01 [facility] Comment on above: Order Comment: Speci men Type: BLOOD SPECIMENOrdering Facility: [facility] Address: [address] [place] [place] [address] Performed By: #### 5 8410-2 ####[facility] LABIA [id number] [place] [address] [place] Platelet mean volume (Bld) [Entitic vol] 9.3 fL Normal 9.0-12.7 [facility] Comment on above: Order Comment: Speci men Type: BLOOD SPECIMENOrdering Facility: [facility] Address: [address] [place] [place] [address] Performed By: #### 5 8410-2 ####[facility] LABIA [id number] [place] [address] [place] Platelets (Bld) [#/Vol] 324 10*3/uL Normal 150-400 [facility] Comment on above: Order Comment: Speci men Type: BLOOD SPECIMENOrdering Facility: [facility] Address: [address] [place] [place] [address] Performed By: #### 5 8410-2 ####[facility] LABIA [id number] [place] [address] [place] RBC (Bld) [#/Vol] 3.66 10*6/uL Low 4.20-6.00 [facility] Comment on above: Order Comment: Speci men Type: BLOOD SPECIMENOrdering Facility: [facility] Address: [address] [place] [address] Performed By: #### 5 8410-2 ####[facility] LABIA [id number] [place] [address] [place] WBC (Bld) [#/Vol] 13.46 10*3/uL High 3.70-11.00 [facility] Comment on above: Order Comment: Speci men Type: BLOOD SPECIMENOrdering Facility: [facility] Address: [address] [place] [address] Performed By: #### 5 8410-2 ####[facility] LABCLIA [id number] [id number] THERAPY NTon 08-21-2023 THERAPY NT HNO ID: [id number] Author: DONN ARDON, PT Service: Physical Therapy Author Type: Physical Therapist Type: Therapy (PT/OT/Speech/Resp) Filed: 08/21/2023 15:29 Note Text: Physical Therapy Treatment Summary SERVICE DATE: 08/21/2023 SERVICE TIME: 1429 to 1453 ROOM: [place] [address] PT 6 Clicks Score: 19 DISCHARGE RECOMMENDATIONS Home PT Recommended Discharge Equipment: Wheeled Walker ASSESSMENT Response to Therapy Interventions: Good Participation in Activities, Improved Tolerance for Activity Pt continues to demo appropriate activity tolerance with WW and LLE AFO. Pt reporting he ordered a RLE AFO to have at home. Pt participating in stair training, pt with trendelenburg while weightbearing on RLE, leading to R lateral lean when ascending stairs with R leg leading. Pt instructed to lead with L leg with improved stability. Pt with steady stair navigation requiring CGA and bilateral hand rails, reportedly feeling more confident regarding d/c to home. PRECAUTIONS Spine CURRENT HOSPITAL COURSE 08/18 L2-L5 OLIF and percutaneous PSF Relevant Past Medical History: left foot drop and wears an AFO brace, 3 previous lumbar surgeries with the last in 2019 HOME LIVING Patient Lives With: Spouse Assistance Available: 24-Hour Entry To Home: Stairs Number Of Stairs Into Home: 4 Number Of Stairs To Bed/Bath: 14 Stairs to Bed/Bath with: Unilateral Rail Laundry: Basement - pt and spouse both complete Equipment Owned: Walker- Wheeled PRIOR FUNCTIONAL LEVEL Within Functional Limits Pt reporting IND with ADLs and most iADLs, recently requiring assist d/t pain. Ambulating without AD primarily but occasionally uses a cane. +works. +drives. SUBJECTIVE Agreeable to PT THERAPY DIAGNOSIS Reduced mobility-other, Decreased activities of daily living (ADL), Unsteadiness on feet, Abnormalities of gait and mobility-other TREATMENT INTERVENTIONS Therapeutic Activity (39759), Gait Training (74813) Timed Code Treatment (minutes): 24 Skilled Treatment Time (minutes): 24 TRAINING AND EDUCATION PROVIDED Discharge Planning, Energy Conservation, Equipment, Exercise Program, Expected Functional Level, Falls Prevention, Gait Pattern, Reduction of Deviations, Role of Physical Therapy, Standing Balance, Transfers, Treatment Protocol, Benefits of In-Hospital Mobility THERAPEUTIC SKILLS USED Activity Dosing, Assessment of Tolerance Including Vitals Response to Activity, Cues for Sequencing/Proper Technique for Activity, Cuing Tactile, Cuing Verbal, Cuing Visual, Movement Facilitation, Muscle Activation Facilitation, Physical Assist, Teach-Back for Education FUNCTIONAL STATUS Bed Mobility Rolling: Minimal Assistance Supine To Sit: Minimal Assistance Scooting: Stand By Assistance Transfers Sit To Stand: Stand By Assistance Stand To Sit: Stand By Assistance Bed to Chair Contact Guard Assistance Bed To Chair Transfer Type: Stepping Bed To Chair Transfer Equipment: Wheeled Walker Gait Contact Guard Assistance, Additional Information shoes AND LLE AFO donned Gait Device: Wheeled Walker General Deviations/Observatio ns: Narrow Base of Support, Scissoring of LEs, Step length decreased, UE weight bearing on assistive device excessive Gait Distance (feet): 75 ft x2 Gait Deviations Right Lower Extremity: Foot clearance decreased, Hyperextension during stance, Lacks hip extension beyond mid-stance Stairs Contact Guard Assistance, Additional Information Stairs Device: Rail (Bilateral) Number of Stairs: 10 (2 trials) GOALS Patient will demonstrate progress with functional mobility to allow safe discharge to home with available support and/or physical assistance. Rehab Potential: Excellent Progress Toward Goals: Progressing as expected PLAN PT Frequency: Once Daily (BID PRN) Treatment Interventions: Education, Energy Conservation Training, Self Care / Home Management, Strengthening, Balance Training, Functional Mobility Training, Neuromuscular Re-education Plan for Next Visit: Bed Mobility, Gait Training, Standing Balance, Standing Tolerance, Walker Training, Stair Training SIGNATURE: Donn Ardon PT PATIENT NAME: Braden Rodriguez DATE: August 21, 2023 TIME: 3:29 PM Normal [facility] THERAPY NT HNO ID: [id number] Author: RUBÉN ORTEGA OT/L Service: Occupational Therapy Author Type: Occupational Therapist Type: Therapy (PT/OT/Speech/Resp) Filed: 08/21/2023 15:05 Note Text: OCCUPATIONAL THERAPY MISSED VISIT SERVICE DATE: 08/21/2023 SERVICE TIME: 1502 ROOM: [place] [address] Patient not seen due to (No OT needs). Per conversation with pt and family and staff, no OT needs SIGNATURE: RUBÉN ORTEGA OT/Lew PATIENT NAME: Braden Rodriguez DATE: August 21, 2023 TIME: 3:04 PM Normal [facility] THERAPY NT HNO ID: [id number] Author: DONN ARDON, PT Service: Physical Therapy Author Type: Physical Therapist Type: Therapy (PT/OT/Speech/Resp) Filed: 08/21/2023 11:35 Note Text: PHYSICAL THERAPY MISSED VISIT SERVICE DATE: 08/21/2023 SERVICE TIME: 1127 ROOM: [place] [address] ( [id number]-X-RAY 215) Patient not seen due to Patient Not Available. Transport arrived for x-ray. PT will follow up as able. SIGNATURE: Donn Ardon PT PATIENT NAME: Braden Rodriguez DATE: August 21, 2023 TIME: 11:35 AM Normal [facility] XR LUMBAR 2V AP/LATon 2023 XR LUMBAR 2V AP/LAT * * *Final Report* * * DATE OF EXAM: Aug 21 2023 11:37AM DONALD 5229 - XR LUMBAR 2V AP/LAT / PROCEDURE REASON: Postoperative assessment * * * * Physician Interpretation * * * * EXAMINATION: XR LUMBAR 2V AP/LAT CLINICAL HISTORY: Postoperative assessment TECHNIQUE: XR LUMBAR 2V AP/LAT with views on images MQ: XLS_1 COMPARISON: August 19, 2023 RESULT: Status post recent fusion and instrumentation of the lumbar spine with good alignment and intact hardware. No fracture identified. IMPRESSION: Adequate recent postsurgical changes of the lumbar spine. Observer Helper: PSCB Transcribe Date/Time: Aug 21 2023 11:38A Dictated by : MANA TSAI MD This examination was interpreted and the report reviewed and electronically signed by: MANA TSAI MD on Aug 21 2023 11:39AM EST [id number] Normal [facility] Basic metabolic 2000 panelon 08-20-2023 Anion gap [Moles/Vol] 11 mmol/L Normal 8-15 [facility] Comment on above: Order Comment: Speci men Type: BLOOD SPECIMENOrdering Facility: [facility] Address: [address] [place] [address] Performed By: #### 2 4321-2 ####[facility] LABCLIA [id number] [address] [address] [place] Calcium [Mass/Vol] 9.3 mg/dL Normal 8.5-10.2 [facility] Comment on above: Order Comment: Speci men Type: BLOOD SPECIMENOrdering Facility: [facility] Address: [address] [place] [address] Performed By: #### 2 4321-2 ####[facility] LABCLIA [id number] [place] [address] [place] Chloride [Moles/Vol] 105 mmol/L Normal 98-107 [facility] Comment on above: Order Comment: Speci men Type: BLOOD SPECIMENOrdering Facility: [facility] Address: [address] [place] [address] Performed By: #### 2 4321-2 ####[facility] LABCLIA [id number] [place] [address] [place] CO2 [Moles/Vol] 24 mmol/L Normal 22-30 [facility] Comment on above: Order Comment: Speci men Type: BLOOD SPECIMENOrdering Facility: [facility] Address: [address] [place] [address] Performed By: #### 2 4321-2 ####[facility] LABCLIA [id number] [place] [address] [place] Creatinine [Mass/Vol] 0.86 mg/dL Normal 0.73-1.22 [facility] Comment on above: Order Comment: Speci men Type: BLOOD SPECIMENOrdering Facility: [facility] Address: [address] [place] [address] Performed By: #### 2 4321-2 ####[facility] LABCLIA [id number] [place] [address] [place] Creatinine and Glomerular filtration rate.predicted panel (S/P/Bld) 95 mL/min/1.73m??? Normal >=60 [facility] Comment on above: Order Comment: Roberto Carlos lion Type: BLOOD SPECIMENOrdering Facility: [facility] Address: [address] [place] [address] Result Comment: Yesica mated Glomerular Filtration Rate (eGFR) is calculated using the 2020 CKD-EPI creatinine equation. This equation utilizes serum creatinine, sex, and age as parameters. The creatinine assay has traceable calibration to isotope dilution-mass spectrometry. Refer to KDIGO guidelines for clinical interpretation. In patients with unstable renal function, e.g. those with acute kidney injury, the eGFR may not accurately reflect actual GFR. Performed By: #### 2 4321-2 ####[facility] LABCLIA [id number] [place] [address] [place] Glucose [Mass/Vol] 111 mg/dL High 74-99 [facility] Comment on above: Order Comment: Roberto Carlos lion Type: BLOOD SPECIMENOrdering Facility: [facility] Address: [address] [place] [address] Result Comment: The [place] [employer] (ADA) provides guidance for cutoff values for fasting glucose and random glucose. The ADA defines fasting as no caloric intake for at least 8 hours. Fasting plasma glucose results between 100 to 125 mg/dL indicate increased risk for diabetes (prediabetes). Fasting plasma glucose results greater than or equal to 126 mg/dL meet the criteria for diagnosis of diabetes. In the absence of unequivocal hyperglycemia, results should be confirmed by repeat testing. In a patient with classic symptoms of hyperglycemia or hyperglycemic crisis, random plasma glucose results greater than or equal to 200 mg/dL meet the criteria for diagnosis of diabetes. Reference: Standards of Medical Care in Diabetes 2016, [place] [employer]. Diabetes Care. 2016.39(Suppl 1). Performed By: #### 2 4321-2 ####[facility] LABCLIA [id number] [place] [address] [place] Potassium [Moles/Vol] 4.0 mmol/L Normal 3.7-5.1 [facility] Comment on above: Order Comment: Speci men Type: BLOOD SPECIMENOrdering Facility: [facility] Address: [address] [place] [address] Performed By: #### 2 4321-2 ####[facility] LABCLIA [id number] [place] [address] [place] Sodium [Moles/Vol] 140 mmol/L Normal 136-144 [facility] Comment on above: Order Comment: Speci men Type: BLOOD SPECIMENOrdering Facility: [facility] Address: [address] [place] [place] [address] Performed By: #### 2 4321-2 ####[facility] LABCLIA [id number] [place] [address] [place] Urea nitrogen [Mass/Vol] 10 mg/dL Normal 9-24 [facility] Comment on above: Order Comment: Speci men Type: BLOOD SPECIMENOrdering Facility: [facility] Address: [address] [place] [place] [address] Performed By: #### 2 4321-2 ####[facility] LABCLIA [id number] [place] [address] [place] CBC panel Auto (Bld)on 08-19 Erythrocyte distribution width (RBC) [Ratio] 13.2 % Normal 11.5-15.0 [facility] Comment on above: Order Comment: Speci men Type: BLOOD SPECIMENOrdering Facility: [facility] Address: [address] [place] [address] Performed By: #### 5 8410-2 ####[facility] LABCLIA [id number] [place] [address] [place] Hematocrit (Bld) [Volume fraction] 39.0 % Normal 39.0-51.0 [facility] Comment on above: Order Comment: Speci men Type: BLOOD SPECIMENOrdering Facility: [facility] Address: [address] [place] [place] [address] Performed By: #### 5 8410-2 ####[facility] LABIA [id number] [place] [address] [place] Hemoglobin (Bld) [Mass/Vol] 12.9 g/dL Low 13.0-17.0 [facility] Comment on above: Order Comment: Speci men Type: BLOOD SPECIMENOrdering Facility: [facility] Address: [address] [place] [address] Performed By: #### 5 8410-2 ####[facility] LABIA [id number] [place] [address] [place] MCH (RBC) [Entitic mass] 32.4 pg Normal 26.0-34.0 [facility] Comment on above: Order Comment: Speci men Type: BLOOD SPECIMENOrdering Facility: [facility] Address: [address] [place] [address] Performed By: #### 5 8410-2 ####[facility] LABIA [id number] [place] [address] [place] MCHC (RBC) [Mass/Vol] 33.1 g/dL Normal 30.5-36.0 [facility] Comment on above: Order Comment: Speci men Type: BLOOD SPECIMENOrdering Facility: [facility] Address: [address] [place] [address] Performed By: #### 5 8410-2 ####[facility] LABIA [id number] [place] [address] [place] MCV (RBC) [Entitic vol] 98.0 fL Normal 80.0-100.0 [facility] Comment on above: Order Comment: Speci men Type: BLOOD SPECIMENOrdering Facility: [facility] Address: [address] [place] [place] [address] Performed By: #### 5 8410-2 ####[facility] LABCLIA [id number] [place] [address] [place] Nucleated RBC (Bld) [#/Vol] 10*3/uL Normal <0.01 [facility] Comment on above: Order Comment: Speci men Type: BLOOD SPECIMENOrdering Facility: [facility] Address: [address] [place] [place] [address] Performed By: #### 5 8410-2 ####[facility] LABIA [id number] [place] [address] [place] Platelet mean volume (Bld) [Entitic vol] 9.7 fL Normal 9.0-12.7 [facility] Comment on above: Order Comment: Speci men Type: BLOOD SPECIMENOrdering Facility: [facility] Address: [address] [place] [place] [address] Performed By: #### 5 8410-2 ####[facility] LABIA [id number] [place] [address] [place] Platelets (Bld) [#/Vol] 389 10*3/uL Normal 150-400 [facility] Comment on above: Order Comment: Speci men Type: BLOOD SPECIMENOrdering Facility: [facility] Address: [address] [place] [address] Performed By: #### 5 8410-2 ####[facility] LABIA [id number] [place] [address] [place] RBC (Bld) [#/Vol] 3.98 10*6/uL Low 4.20-6.00 [facility] Comment on above: Order Comment: Speci men Type: BLOOD SPECIMENOrdering Facility: [facility] Address: [address] [place] [place] [address] Performed By: #### 5 8410-2 ####[facility] LABIA [id number] [place] [address] [place] WBC (Bld) [#/Vol] 11.15 10*3/uL High 3.70-11.00 [facility] Comment on above: Order Comment: Speci men Type: BLOOD SPECIMENOrdering Facility: [facility] Address: [address] [place] [address] Performed By: #### 5 8410-2 ####[facility] LABCLIA [id number] [facility][NOTE 3][id number] [address] [place] LUMBAR SPINE WO IVCONon 0 08-20-2023 CT LUMBAR SPINE WO IVCON * * *Final Report* * * DATE OF EXAM: Aug 20 2023 9:34AM [facility] [place] LUMBAR SPINE WO IVCON / PROCEDURE REASON: post op neuro deficit * * * * Physician Interpretation * * * * EXAMINATION: CT LUMBAR SPINE WO IVCON CLINICAL HISTORY: post op neuro deficit TECHNIQUE: Spiral, high resolution axial unenhanced images were obtained from the thoracolumbar junction to the sacrum with sagittal and coronal planar reconstructions. MQ: [id number] CT Radiation dose: Integrated Dose-Length Product (DLP) for this visit = 1073 mGy*cm. CT Dose Reduction Employed: Automated exposure control (AEC) COMPARISON: CT lumbar spine 05/04/2023 RESULT: Counting reference: Lumbosacral junction. For the purposes of this report, L4-5 is considered the level of the iliac crest and there are 5 lumbar-type vertebrae. Anatomic variant: Transitional L5 vertebral body. The most caudal rib-bearing vertebral body is designated T12. Occup Therapist (topogram) images: No additional findings. Alignment: Mild dextrocurvature of the thoracolumbar junction with a rightward apex centered at L1. Bone marrow /fracture: Postoperative findings related dorsal decompression laminectomies at L3-L5. Interval discectomy at L2-L3, L3-L4, and L4-L5 with intra-articular disc spacers at these levels. Interval placement of dorsal fusion hardware with transpedicular screws present bilaterally at L2, L3, L4, and L5. No evidence of acute or chronic fracture. No evidence of hardware failure, loosening, or hardware fracture. Paraspinal soft tissues: Postoperative retroperitoneal and paraspinal intra-abdominal gas left greater than right. Lower thoracic spine: The visualized lower thoracic bony canal and foramina are patent. T11-T12: Canal and foramina are patent. T12-L1: Disc bulge with superimposed left paracentral disc protrusion and mild ligamentous hypertrophy causes mild spinal canal stenosis. The neural foramina are patent. L1-L2: Disc bulge with superimposed left paracentral disc protrusion and mild ligamentous hypertrophy results in mild spinal canal stenosis. Facet hypertrophy contributes to up to mild bilateral neural foraminal stenosis. L2-L3: Canal is patent although suboptimally assessed due to excessive streak artifact at this level. Facet hypertrophy contributes to moderate right and moderate to severe left neural foraminal stenosis. L3-L4: Decompress spinal level dorsally. Residual endplate spurring and facet hypertrophy contributes to mild spinal canal stenosis with moderate right and severe left neural foraminal stenosis. L4-L5: The compressed spinal level dorsally. Residual endplate spurring and facet hypertrophy contributes to moderate to severe right and minimal left neural foraminal stenosis. L5-S1: Canal and foramina are patent Sacrum and iliac wings: The visualized sacrum and iliac wings are within normal limits. IMPRESSION: Interval postoperative changes with discectomies at L2-L5 and placement of inter articular disc spacers with dorsal fusion hardware placement spanning L2-L5. No evidence of hardware failure, loosening, or fracture. Varying degrees of neural foraminal stenosis as detailed above level by level. Anatomic Lumbar Variant: Transitional L5 vertebral body. L4-5 is considered the level of the iliac crest and there are 5 lumbar-type vertebrae. Observer Helper: [facility]ADISONVILLEAdonis Transcribe Date/Time: Aug 20 2023 9:38A Dictated by : RICHARD WEI MD This examination was interpreted and the report reviewed and electronically signed by: JO ANN BARR MD on Aug 20 2023 10:22AM EST [id number] Normal [facility] MRI LUMBAR SPINE WO IVCONon 08-20-2023 MRI LUMBAR SPINE WO IVCON * * *Final Report* * * DATE OF EXAM: Aug 20 2023 10:47PM QBM 0303 - MRI LUMBAR SPINE WO IVCON / PROCEDURE REASON: Post operative complication suspected * * * * Physician Interpretation * * * * EXAMINATION: MRI LUMBAR SPINE WO IVCON CLINICAL HISTORY: Post operative complication suspected. Status post L2-3, L3-4, and L4-5 interbody fusions and posterior spinal instrumentation from L2 through L5 performed 08/19/2023. TECHNIQUE: Routine lumbosacral spine MR protocol without gadolinium. MQ: [id number] COMPARISON: CT lumbar spine 08/20/2023, 05/04/2023 RESULT: Counting reference: Lumbosacral junction. For the purposes of this report, L4-5 is considered the level of the iliac crest and there are 5 lumbar-type vertebrae. Anatomic variant: Transitional L5 vertebral body. Localizer images: No significant findings. Alignment: Alignment is anatomic. Postsurgical changes of L2-L5 dorsal fusion. Status post L3-4 laminectomies. Bone marrow signal/fracture: No evidence of pathologic marrow infiltration. No evidence of prior fracture. Conus: The conus is within normal limits of signal intensity and morphology. Paraspinal soft tissues: Postsurgical changes in the dorsal paraspinal soft tissues. Lower thoracic spine: Mild spinal canal stenosis at T12-L1 due to disc bulge. No significant foraminal stenosis of the lower thoracic spine. L1-L2: Mild narrowing of the left subarticular recess due to disc bulge and facet arthropathy. Spinal canal is otherwise patent. Foramina are patent. L2-L3: Spinal canal is patent status post laminectomy. Mild bilateral foraminal stenosis due to endplate spurring and facet arthropathy. L3-L4: Spinal canal is patent status post laminectomy. Moderate to severe bilateral foraminal stenosis due to endplate spurring and facet arthropathy. L4-L5: Spinal canal is patent status post laminectomy. Moderate to severe bilateral foraminal stenosis due to endplate spurring and facet arthropathy. L5-S1: Spinal canal and foramina are grossly patent. Sacrum and iliac wings: The visualized sacrum and iliac wings are within normal limits. IMPRESSION: 1. Recent postsurgical changes of L2-L5 interbody fusions and posterior fusion hardware. Status post prior L3-4 laminectomies. 2. Multilevel degenerative changes as described with relatively high-grade foraminal stenosis at L3-4 and L4-5. Anatomic Lumbar Variant: None. L4-5 is considered the level of the iliac crest and assume there are 5 lumbar-type vertebrae. Observer Helper: [facility] Transcribe Date/Time: Aug 20 2023 10:48P Dictated by : EMMA JERNIGAN MD This examination was interpreted and the report reviewed and electronically signed by: EMMA JERNIGAN MD on Aug 20 2023 11:01PM EST [id number] Normal [facility] THERAPY NTon 08-20-2023 THERAPY NT HNO ID: [id number] Author: DONN ARDON PT Service: Physical Therapy Author Type: Physical Therapist Type: Therapy (PT/OT/Speech/Resp) Filed: 08/20/2023 15:41 Note Text: Physical Therapy Treatment Summary SERVICE DATE: 08/20/2023 SERVICE TIME: 1455 to 1520 ROOM: [place] [address] PT 6 Clicks Score: 17 DISCHARGE RECOMMENDATIONS Home PT Recommended Discharge Equipment: Wheeled Walker ASSESSMENT Response to Therapy Interventions: Good Participation in Activities, Improved Tolerance for Activity Shoes and LLE AFO donned at onset of session, pt with improved gait pattern and stability. 1 mild LOB with initial stand d/t inappropriate distancing from WW. Pt continues to demo RLE foot drop, compensating with hip and knee flexion during swing. Pt able to ambulate further distance since AM session with improved stability and confidence. PRECAUTIONS Spine CURRENT HOSPITAL COURSE 08/18 L2-L5 OLIF and percutaneous PSF Relevant Past Medical History: left foot drop and wears an AFO brace, 3 previous lumbar surgeries with the last in 2019 HOME LIVING Patient Lives With: Spouse Assistance Available: 24-Hour Entry To Home: Stairs Number Of Stairs Into Home: 4 Number Of Stairs To Bed/Bath: 14 Stairs to Bed/Bath with: Unilateral Rail Laundry: Basement - pt and spouse both complete Equipment Owned: Walker- Wheeled PRIOR FUNCTIONAL LEVEL Within Functional Limits Pt reporting IND with ADLs and most iADLs, recently requiring assist d/t pain. Ambulating without AD primarily but occasionally uses a cane. +works. +drives. SUBJECTIVE Agreeable to PT THERAPY DIAGNOSIS Reduced mobility-other, Decreased activities of daily living (ADL), Unsteadiness on feet, Abnormalities of gait and mobility-other TREATMENT INTERVENTIONS Gait Training (99419), Therapeutic Activity (46060) Timed Code Treatment (minutes): 25 Skilled Treatment Time (minutes): 25 TRAINING AND EDUCATION PROVIDED Discharge Planning, Energy Conservation, Equipment, Exercise Program, Expected Functional Level, Falls Prevention, Gait Pattern, Reduction of Deviations, Role of Physical Therapy, Standing Balance, Transfers, Treatment Protocol, Benefits of In-Hospital Mobility THERAPEUTIC SKILLS USED Activity Dosing, Assessment of Tolerance Including Vitals Response to Activity, Cues for Sequencing/Proper Technique for Activity, Cuing Tactile, Cuing Verbal, Cuing Visual, Movement Facilitation, Muscle Activation Facilitation, Physical Assist, Teach-Back for Education FUNCTIONAL STATUS Bed Mobility Rolling: Minimal Assistance Supine To Sit: Minimal Assistance Scooting: Stand By Assistance Transfers Sit To Stand: Contact Guard Assistance Stand To Sit: Contact Guard Assistance Bed to Chair Contact Guard Assistance Bed To Chair Transfer Type: Stepping Bed To Chair Transfer Equipment: Wheeled Walker Gait Contact Guard Assistance shoes AND LLE AFO donned Gait Device: Wheeled Walker General Deviations/Observatio ns: Narrow Base of Support, Scissoring of LEs, Step length decreased, UE weight bearing on assistive device excessive Gait Distance (feet): 55 Gait Deviations Left Lower Extremity: Foot clearance decreased, Lacks hip extension beyond mid-stance Stairs GOALS Patient will demonstrate progress with functional mobility to allow safe discharge to home with available support and/or physical assistance. Rehab Potential: Excellent Progress Toward Goals: Progressing as expected PLAN PT Frequency: Once Daily (BID PRN) Treatment Interventions: Education, Energy Conservation Training, Self Care / Home Management, Strengthening, Balance Training, Functional Mobility Training, Neuromuscular Re-education Plan for Next Visit: Bed Mobility, Pre-gait Activities, Gait Training, Standing Balance, Standing Tolerance, Walker Training, Stair Training SIGNATURE: Donn Ardon PT PATIENT NAME: Braden Rodriguez DATE: August 20, 2023 TIME: 3:29 PM Normal [facility] THERAPY NT HNO ID: [id number] Author: DONN ARDON PT Service: ? Author Type: Physical Therapist Type: Therapy (PT/OT/Speech/Resp) Filed: 08/20/2023 11:43 Note Text: Physical Therapy Evaluation Summary SERVICE DATE: 08/20/2023 SERVICE TIME: 1025 to 1110 ROOM: [place] [address] PT 6 Clicks Score: 17 DISCHARGE RECOMMENDATIONS Home PT Recommended Discharge Equipment: Wheeled Walker ASSESSMENT Response to Therapy Interventions: Good Participation in Activities Pt cleared for PT by RN. Pt demo good activity tolerance, limited this date by pain. Pt presenting with bilateral foot drop, (L recent baseline, uses AFO) with R foot drop new since surgery. Pt did not have shoes or L AFO at bedside, able to ambulate room distances without AFO and WW but demo gait deviations including scissoring gait pattern, bilateral foot drop compensated with increased hip and knee flexion, hyperextension of R knee during R stance, and shortened step length. Pt with 2-3 mild LOB requiring min A but otherwise ambulating with CGA. Pt hopeful for d/c to home, anticipate pt will continue to progress to safe home d/c with home PT pending continued PT and ambulation with nursing staff while in house. PRECAUTIONS Spine CURRENT HOSPITAL COURSE 08/18 L2-L5 OLIF and percutaneous PSF Relevant Past Medical History: left foot drop and wears an AFO brace, 3 previous lumbar surgeries with the last in 2019 HOME LIVING Patient Lives With: Spouse Assistance Available: 24-Hour Entry To Home: Stairs Number Of Stairs Into Home: 4 Number Of Stairs To Bed/Bath: 14 Stairs to Bed/Bath with: Unilateral Rail Laundry: Basement - pt and spouse both complete Equipment Owned: Walker- Wheeled PRIOR FUNCTIONAL LEVEL Within Functional Limits Pt reporting IND with ADLs and most iADLs, recently requiring assist d/t pain. Ambulating without AD primarily but occasionally uses a cane. +works. +drives. SUBJECTIVE Agreeable to PT THERAPY DIAGNOSIS Reduced mobility-other, Decreased activities of daily living (ADL), Unsteadiness on feet, Abnormalities of gait and mobility-other TREATMENT INTERVENTIONS Evaluation, Therapeutic Activity (46957), Gait Training (42269) Timed Code Treatment (minutes): 30 Skilled Treatment Time (minutes): 45 TRAINING AND EDUCATION PROVIDED Advanced Balance Activities, Assistive Device Use, Bed Mobility, Benefits of In-Hospital Mobility, Discharge Planning, Energy Conservation, Equipment, Exercise Program, Expected Functional Level, Falls Prevention, Gait Pattern, Reduction of Deviations, Home Safety, Home Set-up/Modifications, Precautions/Restricti ons, Positioning, Pre-gait Activities, Role of Physical Therapy, Sitting Balance, Standing Balance, Transfers, Treatment Protocol THERAPEUTIC SKILLS USED Activity Dosing, Assessment of Tolerance Including Vitals Response to Activity, Cues for Sequencing/Proper Technique for Activity, Cuing Tactile, Cuing Verbal, Cuing Visual, Movement Facilitation, Muscle Activation Facilitation, Physical Assist, Teach-Back for Education FUNCTIONAL STATUS Bed Mobility Rolling: Minimal Assistance Supine To Sit: Minimal Assistance Scooting: Stand By Assistance Transfers Sit To Stand: Minimal Assistance Stand To Sit: Contact Guard Assistance Bed to Chair Contact Guard Assistance Bed To Chair Transfer Type: Stepping Bed To Chair Transfer Equipment: Wheeled Walker Gait Contact Guard Assistance, Additional Information 2-3 mild LOB events requiring min A, related to scissoring of LE, R knee hyperextension during stance, and shortened step length Gait Device: Wheeled Walker General Deviations/Observatio ns: Narrow Base of Support, Scissoring of LEs, Step length decreased, UE weight bearing on assistive device excessive Gait Distance (feet): 25 Gait Deviations Right Lower Extremity: Foot clearance decreased, Hyperextension during stance, Lacks hip extension beyond mid-stance Gait Deviations Left Lower Extremity: Foot clearance decreased, Lacks hip extension beyond mid-stance Stairs GOALS Patient will demonstrate progress with functional mobility to allow safe discharge to home with available support and/or physical assistance. Rehab Potential: Excellent PLAN PT Frequency: Once Daily (BID PRN) Treatment Interventions: Education, Energy Conservation Training, Self Care / Home Management, Strengthening, Balance Training, Functional Mobility Training, Neuromuscular Re-education Plan for Next Visit: Bed Mobility, Pre-gait Activities, Gait Training, Standing Balance, Standing Tolerance, Walker Training, Stair Training SIGNATURE: Donn Ardon, PT PATIENT NAME: Braden Rodriguez DATE: August 20, 2023 TIME: 11:43 AM Normal [facility] ANES POSTPROC EVALon 024 ANES POSTPROC EVAL HNO ID: [id number] Author: OMARI PALACIOS MD Service: ? Author Type: Anesthesiologist Type: Anesthesia Postprocedure Evaluation Filed: 08/19/2023 20:50 Note Text: POST ANESTHESIA EVALUATION NOTE : 1955 Procedure Summary Date: 08/19/23 Room / Location: [address] [facility] Anesthesia Start: 1046 Anesthesia Stop: 1906 Procedures: LAT LUMBAR SPINE FUSION (Spine Lumbar) LAT THOR/LUMB, ADD'L SEG (Spine Lumbar) INSERTION INTERBODY BIOMED DEVICE(S) W/ANT INSTR ANCHORING TO DISC SPACE W/INTERBODY FUSION,EA INTERSPACE (Spine) MINIMALLY INVASIVE POSTERIOR NONSEGMENTAL INSTRUMENTATION (Spine Lumbar) Diagnosis: History of laminectomy Degenerative scoliosis in adult patient Pre-op testing (History of laminectomy [Z98.890]) (Degenerative scoliosis in adult patient [M41.50]) (Pre-op testing [Z01.818]) Surgeons: Katherine Keith MD Responsible Provider: Omari Palacios MD Anesthesia Type: general ASA Status: 3 Anesthesia Type: general Airway Type: ETT Last Vitals Vitals Value Taken Time BP 142/66 08/19/232014 Temp 36.5 ?C (97.7 ?F) 08/19/231999 HR SpO2 79 08/19/232014 Resp 20 08/19/232023 SpO2 100 % 08/19/232023 Vitals shown include unfiled device data. Post Anesthesia Patient Status Patient Evaluation: PACU. PACU/ICU Patient Condition: stable. Anticipated Disposition: inpatient floor planned admission. Neurological Status: sleepy but arousable. Pulmonary Status: breathing comfortably on supplemental oxygen Airway Control: returned to baseline unsupported. Cardiovascular Status: stable. Pain Management: clinically adequate Postoperative Hydration: acceptable. Intraoperative Events: no significant anesthesia events Post Operative Nausea/Vomiting Status: no significant post operative nausea or vomiting Recommendation: further care per PACU/ICU/floor team. Anesthesia Observations No Documentation SIGNATURE: Omari Cyr MD PATIENT NAME: Braden Rodriguez DATE: August 19, 2023 TIME: 8:50 PM CSN: [id number] Normal [facility] ANES PRE-OPon 08-19-2023 ANES PRE-OP HNO ID: [id number] Author: AGATA MCLEOD MD Service: ? Author Type: Anesthesiologist Type: Anesthesia Preprocedure Evaluation Filed: 08/19/2023 09:47 Note Text: ANESTHESIOLOGY DAY OF SURGERY NOTE : 1955 Procedure Information Date/Time: 08/19/23 1006 Procedures: LAT LUMBAR SPINE FUSION (Spine Lumbar) LAT THOR/LUMB, ADD'L SEG (Spine Lumbar) INSERTION INTERBODY BIOMED DEVICE(S) W/ANT INSTR ANCHORING TO DISC SPACE W/INTERBODY FUSION,EA INTERSPACE (Spine) MINIMALLY INVASIVE POSTERIOR NONSEGMENTAL INSTRUMENTATION (Spine Lumbar) Location: MAIN [facility] Surgeons: Katherine Keith MD Estimated body mass index is 26.31 kg/m? as calculated from the following: Height as of this encounter: 182.9 cm (6'). Weight as of this encounter: 88 kg (194 lb). Most recent hematocrit and potassium results: Hematocrit 46.3 08/06/2023 Potassium 4.1 08/06/2023 Relevant Problems CARDIO (+) Primary hypertension (+) SVT (supraventricular tachycardia) (HCC) I - PHYSICAL EVALUATION AIRWAY Patient intubated: No. Tracheostomy tube not present Mallampati: III. TM distance: >3 FB. Neck ROM: full ROM without neurological symptoms. Mouth opening: adequate. Short neck: no. Thick neck: no Han present: yes Lip Bite Test: II Microretrognathia/Kd ronagthia/Recessed Chin: No DENTAL Dental findings: teeth intact. Additional exam findings: no II - ANESTHESIA PLAN ASA Score: 3 Anesthetic Plan: general Airway type: ETT NPO Status: adequate Beta Janak Monitoring Plan Monitoring plan: standard ASA. Post Procedure Analgesic Plan Postoperative analgesic plan: multimodal analgesia. Informed Consent Anesthetic risks, benefits, alternatives, personnel and consent discussed: yes. Patient / Responsible Democrat agrees to proceed: yes Patient / Surrogate agrees to blood products: Yes DNR status not reviewed with patient and/or family prior to surgery. Significant changes in the patient condition since the History and Physical, not otherwise documented in primary service progress note: no. Potential Anesthesia issues that may suggest increased risk of complications or contraindication to planned procedure: none. Vitals Value Taken Time BP 180/82 08/19/23 0859 Pulse 54 08/19/23 0859 Resp 18 08/19/23 0859 Temp 36.6 ?C (97.9 ?F) 08/19/23 0859 SpO2 98 % 08/19/23 0859 No current facility-administered medications on file as of 08/19/2023. Outpatient Medications as of 08/19/2023 Medication Sig - carvedilol (COREG) 12.5 mg tablet Take 12.5 mg by mouth two times a day with meals. - tiZANidine (ZANAFLEX) 4 mg tablet Take 2 tablets by mouth daily at bedtime. I have interviewed and examined the patient. I have reviewed the medical record and/or the pre-anesthesia evaluation, pertinent labs, and test results. This contains updated information obtained within 48 hours of Surgery/Procedure. SIGNATURE: Agata Mcleod MD PATIENT NAME: Braden Rodriguez DATE: August 19, 2023 TIME: 9:47 AM CSN: [id number] Normal [facility] BRIEF OP NOTon 08-19-2023 BRIEF OP NOT HNO ID: [id number] Author: SCHUYLER GOFF MD Service: Neurosurgery Author Type: Resident Type: Brief Op Note Filed: 08/19/2023 18:40 Note Text: BRIEF OP NOTE LOG ID: [id number] Surgery/Procedure Date: 08/19/2023 Incision/Procedure Start Time: 12:23 PM Incision Close/Procedure End Time: Surgeon(s)/Procedural ist(s) and Sausage Smoker(s): Surgeon(s) and Role: * Katherine Keith MD - Primary * Schuyler Goff MD - Resident - Assisting * Parris Whyte MD - Fellow Procedure(s): L2-L5 OLIF and percutaneous PSF Anesthesia: General Findings: lumbar radiculopathy Estimated Blood Loss: 50 mls Specimens: * No specimens in log * Implants: Implant Name Type Inv. Item Serial No. Mis Manager Lot No. LRB No. Used Action GRAFT INFUSE 20GA MEDIUM BOVINE COLLAGEN RHBMP-2 2X1IN BONE VIAL ABSORBABLE - [id number] Bone GRAFT INFUSE 20GA MEDIUM BOVINE COLLAGEN RHBMP-2 2X1IN BONE VIAL ABSORBABLE [id number] N/A 1 Implanted SIGNIFY GEL INSTAFILL CARTRIDGE 5CC [id number] Bone [employer] [id number] N/A 1 Implanted SIGNIFY GEL INSTAFILL CARTRIDGE 5CC [id number] Accessories [employer] [id number] N/A 1 Implanted SEALER EVS AQUAMANTYS TRANSCOLLATION .156IN 15D .025IN SPACE FLAT 5.49IN - [id number] Sealant - Tissue SEALER EVS AQUAMANTYS TRANSCOLLATION .156IN 15D .025IN SPACE FLAT 5.49IN [employer] ADVANCED ENERGY [id number] N/A 1 Non-Implant KNIFE BAYONET SURGICAL ANNULOTOMY SPINE Accessories [employer] N/A 1 Non-Implant CREO MIS LOCKING CAP Accessories [employer] N/A 8 Implanted CREO MIS 5.5MM CURVED CRYSTAL TI ALLOY 10CM Crystal [employer] N/A 1 Implanted SPACER RISE-L 3D LORDOTIC [id number] SPINAL NONSTERILE [employer] N/A 1 Implanted CREO MIS 5.5MM CURVED CRYSTAL TI ALLOY 11CM Crystal [employer] N/A 1 Implanted SPACER RISE-L 3D LORDOTIC [id number] SPINAL NONSTERILE [employer] N/A 2 Implanted 4.5X45 Screw [employer] N/A 1 Implanted 5.0X45 Screw [employer] N/A 1 Implanted CREO ONE ROBOTIC MODULAR SCREW 6.5MM X 50MM Screw [employer] N/A 2 Implanted CREO ONE ROBOTIC MODULAR SCREW 6.5MM X 55MM Screw [employer] N/A 4 Implanted Complications: None Pre-Op/Pre-Procedure Diagnosis: lumbar stenosis Post-Op/Post-Procedur e Diagnosis: same as preop SIGNATURE: Schuyler Goff MD PATIENT NAME: Braden Rodriguez DATE: August 19, 2023 TIME: 6:38 PM PAGER/CONTACT #: [phone] [facility] NURSING PROGon 08-19-2023 NURSING PROG HNO ID: [id number] Author: SINCERE RODRIGUEZ RN Service: Nursing Author Type: Registered Nurse Type: Nursing Progress Note Filed: 08/19/2023 20:51 Note Text: Transfer Note: PATIENT NAME: Braden Rodriguez Patient Location: [place] [address] Room: [place] [address] Patient transferred into room/unit [place] [address] in stable condition. Actions taken: No futher actions taken at this time. Will continue to monitor and check with patient. Normal [facility] NURSING PROG HNO ID: [id number] Author: AKASH STARK RN Service: Nursing Author Type: Registered Nurse Type: Nursing Progress Note Filed: 08/19/2023 09:09 Note Text: 0909 Good morning this is M21-14 R Michael reported to me in preop assessment that he fell in hallway and landed on left hip. States left foot drop weak and gave out. No LOC, No abrasion to left hip or leg. SANDY [place] [id number] [facility] OPERATIVE NOon 08-19-2023 OPERATIVE NO HNO ID: [id number] Author: KATHERINE KEITH MD Service: Neurosurgery Author Type: Physician Type: Operative Report Filed: 08/20/2023 08:34 Note Text: OPERATIVE/PROCEDURE REPORT LOG ID: [id number] SURGERY/PROCEDURE DATE: 08/19/2023 INCISION/PROCEDURE START TIME: 12:23 PM INCISION CLOSE/PROCEDURE END TIME: 6:39 PM SURGEON(S)/PROCEDURAL IST(S) AND CAKE DECORATOR(S): Surgeon(s) and Role: * Katherine Keith MD - Primary * Schuyler Goff MD - Resident - Assisting * Parris Whyte MD - Fellow No Additional Staff Dr. Whyte assisted in the absence of a qualified resident. Dr. Goff is architectural intern level and not qualified. SURGERY/PROCEDURE(S): L2-L3 oblique interbody fusion L3-L4 oblique interbody fusion L4-L5 oblique interbody fusion Application of expandable cage at L2-L3, L3-L4, and L4-L5 Use of BMP and allograft for fusion within interbody cage at L2-L3, L3-L4, and L4-L5 Lateral retroperitoneal exposure of the spine from a left-sided approach L2-L5 Posterior spinal instrumentation, L2-L5 Use of intra-operative navigation for interbody prep Use of intra-operative fluoroscopy for interbody placement Use of intra-operative robot for pedicle screw placement and planning ANESTHESIA: General INDICATION: Patient is a 68yo male with multiple prior laminectomies who presented to clinic with numbness in bilateral legs and weakness in left leg. Foot drop on the left requiring AFO since February 2023. His symptoms did not improve with conservative treatment including PT, medication, and injections. Imaging was consistent with prior laminectomies with good central decompression at L2-L5 but degenerative changes leading to lateral recess and foraminal stenosis throughout. Risks, benefits, and alternative options were discussed with the patient and he was indicated for L2-L5 OLIF with percutaneous posterior screw fixation. Risks of surgery were discussed in detail with the patient. Risks of surgery discussed include but are not limited to, the risk of DVT, PE, and/or . Cardiovascular and pulmonary risk, as related to the patient's preoperative clearance and assessment by the perioperative team as well as anesthesia. The risk of neurological injury was discussed in great detail, including discussion of a spectrum of partial dysfunction through complete dysfunction. The risk of nerve root injury was discussed that may result in weakness, paralysis, sensory loss, and/or intractable pain and supplied nerve root that might either be transient and/or permanent in nature. The risk of compressive epidural hematoma and/or compressive epidural abscess was discussed with the patient that may or may not result in transient and/or permanent bowel and bladder dysfunction and/or transient and/or permanent lower extremity dysfunction such as weakness, paralysis, sensory loss, and/or intractable pain. The risk of instability status post surgery was discussed, the risk of superficial and deep infection was discussed. The risk of durotomy, and potential complications of spinal headache, and/or persistent leakage, resulting in the need for further surgery, and/or drain placement was discussed. The risk of no improvement in symptoms despite technically adequate decompression of the compressed structures was discussed in extreme detail. The risk of need for further surgery for any reason was discussed. The risk of complications related to fusion were discussed in detail. The risk of pseudoarthrosis was discussed. The risk of hardware failure including hardware pullout, crystal breakage, screw breakage was discussed. The risk of screw loosening was discussed. The risk of need for further surgery for hardware failure, pseudoarthrosis was discussed. The risk of screw misplacement resulting in radiculopathy or neurological injury was discussed. Discussed hip weakness and pain due to approach and other associated risks that are unique to lateral approach to the spine including but not limited to bowel injury, nerve root injury, psoas weakness, etc etc The risk of need for further surgery to alter trajectory of hardware was discussed. The risk of needing to extend the fusion cephalad and/or caudad and the reasoning behind this was discussed. Adjacent segment breakdown that may or may not be symptomatic was discussed. No guarantees were offered nor implied regarding final outcome status post surgery or presence or absence of complication perioperatively. After a thorough discussion, the patient had many appropriate questions, all questions were answered to the patient's stated satisfaction. The patient voiced excellent understanding of both the reasoning for offering surgery, the potential complications regarding this particular surgery, and has elected to proceed. Informed consent was obtained on the day of surgery. SURGERY/PROCEDURE DETAILS: The patient was brought to the operating room and a safety huddle was (more content not included)... Normal [facility] XR LUMBAR 2V AP/LATon 2023 XR LUMBAR 2V AP/LAT * * *Final Report* * * DATE OF EXAM: Aug 19 2023 6:09PM ESX 5229 - XR LUMBAR 2V AP/LAT / PROCEDURE REASON: intra op * * * * Physician Interpretation * * * * EXAMINATION: XR LUMBAR 2V AP/LAT CLINICAL HISTORY: Intraoperative imaging TECHNIQUE: XR LUMBAR 2V AP/LAT with views on images MQ: XLS_1 COMPARISON: Today RESULT: PA and lateral projection of the lumbar spine demonstrating pedicle screw fixation involving L2 down to L5. IMPRESSION: Intraoperative imaging. Observer Helper: [facility] Transcribe Date/Time: Aug 19 2023 6:11P Dictated by : MANA TSAI MD This examination was interpreted and the report reviewed and electronically signed by: MANA TSAI MD on Aug 19 2023 6:12PM EST [id number] Normal [facility] XR LUMBAR 2V AP/LAT * * *Final Report* * * DATE OF EXAM: Aug 19 2023 5:56PM ESX 5229 - XR LUMBAR 2V AP/LAT / PROCEDURE REASON: INTRA OP * * * * Physician Interpretation * * * * EXAMINATION: XR LUMBAR 2V AP/LAT CLINICAL HISTORY: Intraoperative imaging TECHNIQUE: XR LUMBAR 2V AP/LAT with views on images MQ: XLS_1 COMPARISON: Today RESULT: PA and lateral projection of the lumbar spine for surgical planning of pedicle screw fixation. IMPRESSION: Intraoperative imaging. Observer Helper: [facility] Transcribe Date/Time: Aug 19 2023 5:57P Dictated by : MANA TSAI MD This examination was interpreted and the report reviewed and electronically signed by: MANA TSAI MD on Aug 19 2023 5:58PM EST [id number] Normal [facility] XR LUMBAR 2V AP/LAT * * *Final Report* * * DATE OF EXAM: Aug 19 2023 3:45PM ESX 5229 - XR LUMBAR 2V AP/LAT / PROCEDURE REASON: ?INSERTION INTERBODY BIOMED DEVICE(S) W/ANT INSTR ANCHORING TO DISC SPACE W/INTE * * * * Physician Interpretation * * * * EXAMINATION: XR LUMBAR 2V AP/LAT CLINICAL HISTORY: Intraoperative imaging TECHNIQUE: XR LUMBAR 2V AP/LAT with views on images MQ: XLS_1 COMPARISON: None. RESULT: PA and lateral intraoperative image of lumbar spine for surgical planning of discectomy. IMPRESSION: Intraoperative imaging. Observer Helper: [facility] Transcribe Date/Time: Aug 19 2023 5:21P Dictated by : MANA TSAI MD This examination was interpreted and the report reviewed and electronically signed by: MANA TSAI MD on Aug 19 2023 5:22PM EST [id number] N Normal [facility] 08-11-2023 CNPN Telephone (SPNSMN) MICHAELBRADEN Lew ([id number]) 1955 M Date Time Provider Department 08/11/23 ANGELINA MAJOR [facility] During your visit today, we recorded the following information about you: Angelina Major LSW 08/11/2023 12:57 PM Signed CM was able to leave a brief detailed message on identifed vm requesting call back to discuss post op care. CM provided contact information. Allergies As of Date: 08/11/2023 Noted Allergy Reaction PENICILLINS 07/04/2006 2 - Rash Date Reviewed: 08/06/2023 Reviewed by: Sanam Gill PA-C - Fully Assessed Reason for Visit: Follow Up [171] Prescriptions as of 08/11/2023 - mupirocin (BACTROBAN) 2 % ointment two times a day for 5 days. Apply 0.5 inch with cotton swab (Q-tip) to each nostril in the morning and evening for 5 days prior to and including day of surgery. - Magnesium Oxide 500 mg cap Take 1 capsule by mouth two times a day. - carvedilol (COREG) 12.5 mg tablet Take 12.5 mg by mouth two times a day with meals. - tiZANidine (ZANAFLEX) 4 mg tablet Take 2 tablets by mouth daily at bedtime. Problem List As Of Date 08/11/2023 Noted Resolved BENIGN NEOPLASM SKIN NEC-exam [D23.9] 08/05/2008 UNCERTAIN BEHAV NEOPL SKIN [D48.5] 08/05/2008 BENIGN NEOPLASM SKIN NOS [D23.9] 09/08/2008 SEBORRHEIC KERATOSIS NOS [L82.1] 09/08/2008 Primary hypertension [I10] 08/06/2023 History of penicillin allergy [Z88.0] 08/06/2023 SVT (supraventricular tachycardia) (HCC) [I47.1*08/06/2023 Encounter Status:Closed by ANGELINA MAJOR on 08/11/23 Normal [facility] Basic metabolic 2000 panelon 08-06-2023 Anion gap [Moles/Vol] 13 mmol/L 9 - 18 mmol/L [facility] Calcium [Mass/Vol] 9.2 mg/dL 8.5 - 10. 2 mg/dL [facility] Chloride [Moles/Vol] 100 mmol/L 97 - 10 5 mmol/L [facility] CO2 [Moles/Vol] 24 mmol/L 22 - 30 mmol/L [facility] Creatinine [Mass/Vol] 1.00 mg/dL 0.73 - 1.22 mg/dL [facility] GFR/1.73 sq M.predicted among non-blacks MDRD (S/P/Bld) [Vol rate/Area] 83 mL/min/{1.73_m2} - PINF [facility] Comment on above: Estimated Glomerular Filtration Rate (eGFR) is calculated using the 2020 CKD-EPI creatinine equation. This equation utilizes serum creatinine, sex, and age as parameters. The creatinine assay has traceable calibration to isotope dilution-mass spectrometry. Refer to KDIGO guidelines for clinical interpretation. In patients with unstable renal function, e.g. those with acute kidney injury, the eGFR may not accurately reflect actual GFR. Glucose [Mass/Vol] 100 mg/dL High 74 - 99 mg/dL [facility] Comment on above: The [place] Diab[employer] s Association (ADA) provides guidance for cutoff values for fasting glucose and random glucose. The ADA defines fasting as no caloric intake for at least 8 hours. Fasting plasma glucose results between 100 to 125 mg/dL indicate increased risk for diabetes (prediabetes). Fasting plasma glucose results greater than or equal to 126 mg/dL meet the criteria for diagnosis of diabetes. In the absence of unequivocal hyperglycemia, results should be confirmed by repeat testing. In a patient with classic symptoms of hyperglycemia or hyperglycemic crisis, random plasma glucose results greater than or equal to 200 mg/dL meet the criteria for diagnosis of diabetes. Reference: Standards of Medical Care in Diabetes 2016, [place] [employer]. Diabetes Care. 2016.39(Suppl 1). Interpretation and review of laboratory results Abnormal [facility] Potassium [Moles/Vol] 4.1 mmol/L 3.7 - 5.1 mmol/L [facility] Sodium [Moles/Vol] 137 mmol/L 136 - 144 mmol/L [facility] Urea nitrogen [Mass/Vol] 23 mg/dL 9 - 24 mg/dL [facility] Anion gap [Moles/Vol] 13 mmol/L Normal 9-18 [facility] Comment on above: Order Comment: Speci men Type: BLOOD SPECIMEN Ordering Facility: [facility] Address: [address] [place] [address] Performed By: #### 2 4321-2, 2276-4, 11710-8 #### [facility] CLIA [id number] [address] [place] [address] [place] Calcium [Mass/Vol] 9.2 mg/dL Normal 8.5-10.2 [facility] Comment on above: Order Comment: Speci men Type: BLOOD SPECIMEN Ordering Facility: [facility] Address: [address] [place] [address] Performed By: #### 2 4321-2, 6-4, 11844-7 #### [facility] CLIA [id number] [address] [place] [address] [place] Chloride [Moles/Vol] 100 mmol/L Normal 97-105 [facility] Comment on above: Order Comment: Speci men Type: BLOOD SPECIMEN Ordering Facility: [facility] Address: [address] [place] [address] Performed By: #### 2 4321-2, 6-4, 04051-3 #### [facility] CLIA [id number] [address] [place] [address] [place] CO2 [Moles/Vol] 24 mmol/L Normal 22-30 [facility] Comment on above: Order Comment: Speci men Type: BLOOD SPECIMEN Ordering Facility: [facility] Address: [address] [place] [address] Performed By: #### 2 4321-2, 2276-4, 54797-2 #### [facility] CLIA [id number] [facility] [place] [address] [place] Creatinine [Mass/Vol] 1.00 mg/dL Normal 0.73-1.22 [facility] Comment on above: Order Comment: [facility] Type: BLOOD SPECIMEN Ordering Facility: [facility] Address: [address] [place] [address] Performed By: #### 2 4321-2, 2276-4, 26231-8 #### [facility] CLIA [id number] [address] [place] [address] [place] Creatinine and Glomerular filtration rate.predicted panel (S/P/Bld) 83 mL/min/1.73m??? Normal >=60 [facility] Comment on above: Order Comment: [facility] Type: BLOOD SPECIMEN Ordering Facility: [facility] Address: [address] [place] [address] Result Comment: Yesica mated Glomerular Filtration Rate (eGFR) is calculated using the 2020 CKD-EPI creatinine equation. This equation utilizes serum creatinine, sex, and age as parameters. The creatinine assay has traceable calibration to isotope dilution-mass spectrometry. Refer to KDIGO guidelines for clinical interpretation. In patients with unstable renal function, e.g. those with acute kidney injury, the eGFR may not accurately reflect actual GFR. Performed By: #### 2 4321-2, 2276-4, 33135-9 #### [facility] CLIA [id number] [address] [facility] [place] [address] [place] Glucose [Mass/Vol] 100 mg/dL High 74-99 [facility] Comment on above: Order Comment: [facility] Type: BLOOD SPECIMEN Ordering Facility: [facility] Address: [address] [place] [address] Result Comment: The [place] Diabetes Association (ADA) provides guidance for cutoff values for fasting glucose and random glucose. The ADA defines fasting as no caloric intake for at least 8 hours. Fasting plasma glucose results between 100 to 125 mg/dL indicate increased risk for diabetes (prediabetes). Fasting plasma glucose results greater than or equal to 126 mg/dL meet the criteria for diagnosis of diabetes. In the absence of unequivocal hyperglycemia, results should be confirmed by repeat testing. In a patient with classic symptoms of hyperglycemia or hyperglycemic crisis, random plasma glucose results greater than or equal to 200 mg/dL meet the criteria for diagnosis of diabetes. Reference: Standards of Medical Care in Diabetes 2016, [place] [employer]. Diabetes Care. 2016.39(Suppl 1). Performed By: #### 2 4321-2, 6-4, 01713-4 #### [facility] CLIA [id number] [address] [place] [address] [place] Potassium [Moles/Vol] 4.1 mmol/L Normal 3.7-5.1 [facility] Comment on above: Order Comment: [facility] Type: BLOOD SPECIMEN Ordering Facility: [facility] Address: [address] [place], [place] [address] Performed By: #### 2 4321-2, 6-4, 58253-0 #### [facility] CLIA [id number] [address] [place] [address] [place] Sodium [Moles/Vol] 137 mmol/L Normal 136-144 [facility] Comment on above: Order Comment: [facility] Type: BLOOD SPECIMEN Ordering Facility: [facility] Address: [address] [place], [place] [address] Performed By: #### 2 4321-2, 6-4, 17850-3 #### [facility] CLIA [id number] [place] [address] [place] Urea nitrogen [Mass/Vol] 23 mg/dL Normal 9-24 [facility] Comment on above: Order Comment: Smitai men Type: BLOOD SPECIMEN Ordering Facility: [facility] Address: [address] [place] [place] [address] Performed By: #### 2 4321-2, 6-4, 20721-9 #### [facility] CLIA [id number] [address] [place] [address] [place] CBC W Auto Differential pane l (Bld)on 08-06-2023 Basophils (Bld) [#/Vol] 0.08 10*3/uL Normal <0.11 [facility] Comment on above: Order Comment: Speci men Type: BLOOD SPECIMEN Ordering Facility: [facility] Address: [address] [place] [place] [address] Performed By: #### 5 7021-8 #### [facility] CLIA [id number] [address] [facility] [place] [address] [place] Basophils/100 WBC (Bld) 0.9 % Normal [facility] Comment on above: Order Comment: Speci men Type: BLOOD SPECIMEN Ordering Facility: [facility] Address: [address] [place] [address] Performed By: #### 5 7021-8 #### [facility] CLIA [id number] [address] [place] [address] [place] Differential cell count method Nom (Bld) Auto Normal [facility] Comment on above: Order Comment: Speci men Type: BLOOD SPECIMEN Ordering Facility: [facility] Address: [address] [place] [address] Performed By: #### 5 7021-8 #### [facility] CLIA [id number] [address] [place] [address] [place] Eosinophils (Bld) [#/Vol] 0.43 10*3/uL Normal <0.46 [facility] Comment on above: Order Comment: Speci men Type: BLOOD SPECIMEN Ordering Facility: [facility] Address: [address] [place] [address] Performed By: #### 5 7021-8 #### [facility] CLIA [id number] [address] [facility] [place] [address] [place] Eosinophils/100 WBC (Bld) 4.6 % Normal [facility] Comment on above: Order Comment: Speci men Type: BLOOD SPECIMEN Ordering Facility: [facility] Address: [address] [place] [address] Performed By: #### 5 7021-8 #### [facility] CLIA [id number] [address] [facility] [place], [place] [address] [place] [address] [place] Erythrocyte distribution width (RBC) [Ratio] 12.7 % Normal 11.5-15.0 [facility] Comment on above: Order Comment: Speci men Type: BLOOD SPECIMEN Ordering Facility: [facility] Address: [address] [place] [address] Performed By: #### 5 7021-8 #### [facility] [place] [id number] [address] [place] Hematocrit (Bld) [Volume fraction] 46.3 % Normal 39.0-51.0 [facility] Comment on above: Order Comment: Speci men Type: BLOOD SPECIMEN Ordering Facility: [facility] Address: [address] [place] [address] Performed By: #### 5 7021-8 #### [facility] IA [id number] [address] [place] [address] [place] Hemoglobin (Bld) [Mass/Vol] 15.1 g/dL Normal 13.0-17.0 [facility] Comment on above: Order Comment: Speci men Type: BLOOD SPECIMEN Ordering Facility: [facility] Address: [address] [place] [address] Performed By: #### 5 7021-8 #### [facility] [place] [id number] [address] [place] Immature granulocytes (Bld) [#/Vol] 0.21 10*3/uL High <0.10 [facility] Comment on above: Order Comment: Speci men Type: BLOOD SPECIMEN Ordering Facility: [facility] Address: [address] [place] [address] Performed By: #### 5 7021-8 #### [facility] [place] [id number] [address] [place] Immature granulocytes/100 WBC (Bld) 2.3 % Normal [facility] Comment on above: Order Comment: Speci men Type: BLOOD SPECIMEN Ordering Facility: [facility] Address: [address] [place] [address] Performed By: #### 5 7021-8 #### [facility] IA [id number] [address] [place] [address] [place] Lymphocytes (Bld) [#/Vol] 1.59 10*3/uL Normal 1.00-4.00 [facility] Comment on above: Order Comment: Speci men Type: BLOOD SPECIMEN Ordering Facility: [facility] Address: [address] [place] [address] Performed By: #### 5 7021-8 #### [facility] IA [id number] [address] [place], [place] [id number] [place] [address] [place] Lymphocytes/100 WBC (Bld) 17.2 % Normal [facility] Comment on above: Order Comment: Speci men Type: BLOOD SPECIMEN Ordering Facility: [facility] Address: [address] [place] [address] Performed By: #### 5 7021-8 #### [facility] IA [id number] [place], [place] [id number] [place] MCH (RBC) [Entitic mass] 31.9 pg Normal 26.0-34.0 [facility] Comment on above: Order Comment: Speci men Type: BLOOD SPECIMEN Ordering Facility: [facility] Address: [address] [place] [address] Performed By: #### 5 7021-8 #### [facility] IA [id number] [address] [place] [address] [place] MCHC (RBC) [Mass/Vol] 32.6 g/dL Normal 30.5-36.0 [facility] Comment on above: Order Comment: Speci men Type: BLOOD SPECIMEN Ordering Facility: [facility] Address: [address] [place] [address] Performed By: #### 5 7021-8 #### [facility] IA [id number] [address] [place] [address] [place] MCV (RBC) [Entitic vol] 97.9 fL Normal 80.0-100.0 [facility] Comment on above: Order Comment: Speci men Type: BLOOD SPECIMEN Ordering Facility: [facility] Address: [address] [place] [address] Performed By: #### 5 7021-8 #### [facility] IA [id number] [address] [place] [address] [place] Monocytes (Bld) [#/Vol] 1.13 10*3/uL High <0.87 [facility] Comment on above: Order Comment: Speci men Type: BLOOD SPECIMEN Ordering Facility: [facility] Address: [address] [place] [address] Performed By: #### 5 7021-8 #### [facility] IA [id number] [address] [place] [address] [place] Monocytes/100 WBC (Bld) 12.2 % Normal [facility] Comment on above: Order Comment: Speci men Type: BLOOD SPECIMEN Ordering Facility: [facility] Address: [address] [place] [address] Performed By: #### 5 7021-8 #### [facility] IA [id number] [address] [place] [address] [place] Neutrophils (Bld) [#/Vol] 5.82 10*3/uL Normal 1.45-7.50 [facility] Comment on above: Order Comment: Speci men Type: BLOOD SPECIMEN Ordering Facility: [facility] Address: [address] [place] [address] Performed By: #### 5 7021-8 #### [facility] IA [id number] [address] [place] [address] [place] Neutrophils/100 WBC (Bld) 62.8 % Normal [facility] Comment on above: Order Comment: Speci men Type: BLOOD SPECIMEN Ordering Facility: [facility] Address: [address] [place] [address] Performed By: #### 5 7021-8 #### [facility] IA [id number] [address] [facility] [place] [address] [place] Nucleated RBC (Bld) [#/Vol] 10*3/uL Normal <0.01 [facility] Comment on above: Order Comment: Speci men Type: BLOOD SPECIMEN Ordering Facility: [facility] Address: [address] [place] [address] Performed By: #### 5 7021-8 #### [facility] CLIA [id number] [address] [place] [address] [place] Nucleated RBC/100 WBC (Bld) [Ratio] 0.0 /100 WBC Normal [facility] Comment on above: Order Comment: Speci men Type: BLOOD SPECIMEN Ordering Facility: [facility] Address: [address] [place] [address] Performed By: #### 5 7021-8 #### [facility] CLIA [id number] [address] [place] [address] [place] Platelet mean volume (Bld) [Entitic vol] 9.6 fL Normal 9.0-12.7 [facility] Comment on above: Order Comment: Speci men Type: BLOOD SPECIMEN Ordering Facility: [facility] Address: [address] [place] [address] Performed By: #### 5 7021-8 #### [facility] CLIA [id number] [address] [place] [address] [place] Platelets (Bld) [#/Vol] 270 10*3/uL Normal 150-400 [facility] Comment on above: Order Comment: Speci men Type: BLOOD SPECIMEN Ordering Facility: [facility] Address: [address] [place] [address] Performed By: #### 5 7021-8 #### [facility] CLIA [id number] [address] [place] [address] [place] RBC (Bld) [#/Vol] 4.73 10*6/uL Normal 4.20-6.00 [facility] Comment on above: Order Comment: Speci men Type: BLOOD SPECIMEN Ordering Facility: [facility] Address: [address] [place] [address] Performed By: #### 5 7021-8 #### [facility] CLIA [id number] WBC (Bld) [#/Vol] 9.26 10*3/uL Normal 3.70-11.00 [facility] Comment on above: Order Comment: Speci men Type: BLOOD SPECIMEN Ordering Facility: [facility] Address: [address] [place] [address] Performed By: #### 5 7021-8 #### [facility] CLIA [id number] [address] [place] [address] CONFIRM BLOOD TYPEon 024 ABO O Normal [facility] Comment on above: Order Comment: Speci men Type: BLOOD SPECIMEN Ordering Facility: [facility] Address: [address] [place] [address] Performed By: #### C ONABO #### [facility] [place] [id number] [address] [place] [address] Rh Nom (Bld) Negative Normal [facility] Comment on above: Order Comment: Speci men Type: BLOOD SPECIMEN Ordering Facility: [facility] Address: [address] [place] [address] Performed By: #### C ONABO #### [facility] [place] [id number] [address] [address] Performed By: #### T SCR30 #### [facility] IA [id number] [address] [address] ECG COMPLETEon 08-06-2023 ECG COMPLETE Ventricular Rate : 5 5 BPM Atrial Rate : 55 BPM P-R Interval : 132 ms QRS Duration : 96 ms Q-T Interval : 420 ms QTC Calculation(Bazett) : 401 ms Calculated P Pennock : 57 degrees Calculated R Pennock : 63 degrees Calculated T Pennock : 73 degrees Sinus bradycardia Possible Left atrial enlargement Borderline ECG Confirmed by LEX ACUNA DO ([id number]) on 08/18/2023 10:08:16 AM NAME : BRADEN RODRIGUEZ PID : [id number] : 1955 Gender : Male Race : ORD : [id number] Procedure Date : Aug 06 2023 08:48:24 Edit Date : Aug 18 2023 10:08:19 Diagnosis: Sinus bradycardia Possible Left atrial enlargement Borderline ECG Confirmed by LEX ACUNA DO ([id number]) on 08/18/2023 10:08:16 AM Test Reason : HCS Location : 301 : PACC Overread By : LEX ACUNA DO Edited By : LEX ACUNA DO Referred By : KATHERINE KEITH Acquired by : dm, Normal [facility] Ferritin SerPl-mCncon 2023 Ferritin [Mass/Vol] 322.8 ng/mL Normal 30.3-565.7 [facility] Comment on above: Order Comment: Speci men Type: BLOOD SPECIMEN Ordering Facility: [facility] Address: [facility] [place] [address] Performed By: #### 2 4321-2, 2276-4, 40035-1 #### [facility] CLIA [id number] [place] [address] [facility] HISTORY PHYSICALon HISTORY PHYSICAL HNO ID: [id number] Author: SANAM GILL PA-C Service: ? Author Type: Physician Sausage Smoker Type: H&P Filed: 08/06/2023 12:03 Note Text: HISTORY AND PHYSICAL EXAMINATION SERVICE DATE: 08/06/2023 SERVICE TIME: 9:48 AM PRIMARY CARE PHYSICIAN: Jae Eduardo DO Assessment/Plan 1. Pre-op exam Surgery 08/19/2023 - BASIC METABOLIC PANEL; Future - TYPE AND SCREEN,30 DAY; Future - CONFIRM BLOOD TYPE; Future - ECG COMPLETE 2. Primary hypertension Bp in office 154/69 continue carvedilol (Coreg) Last 14 Encounter BP Readings: Date: BP: 08/06/2023 154/69 04/30/2023 137/69 3. SVT (supraventricular tachycardia) (HCC) Stable with carvedilol (Coreg) and magnesium. Has not felt any palpations in a long time. 4. History of penicillin allergy Patient given Penicillin allergy handout. Allergy testing is highly recommended in the future, but not mandatory. Penicillin allergy consult placed - CONSULT TO PENICILLIN ALLERGY METS: Walking 2.5-5 miles a day Do moderate work around the house such as vacuuming, sweeping floors, or carrying in groceries (3.50 METs) Do yardwork, such as raking leaves, weeding,or pushing a power mower (4.50 METs) Climb a flight of stairs or walk up a hill (5.50 METs) Patient denies any chest pain or undue shortness of breath with the above physical activity. ANESTHESIA FINDINGS: Intubation History: No history of difficult intubation Significant Anesthesia Considerations: None Airway Exam: General: Normal appearance Mallampati Score is CLASS III ULBT: Class I - Lower incisors can bite the upper lip above the rhett line Neck: Normal appearance and function, Distance from hyoid to mentum during neck extension is at least 3 finger breaths Mouth: Normal tongue size and Mouth opening greater than 2 finger breaths Dentition: Intact Airway History: No history of difficult intubation STOP BANG Score: Criteria: Hypertension Age over 50 (68 year old) Male gender Score = 3 REASON FOR VISIT: Braden Rodriguez is a 68 year old year old male who is scheduled for LAT LUMBAR SPINE FUSION LAT THOR/LUMB, ADD'L SEG INSERTION INTERBODY BIOMED DEVICE(S) W/ANT INSTR ANCHORING TO DISC SPACE W/INTERBODY FUSION,EA INTERSPACE MINIMALLY INVASIVE POSTERIOR NONSEGMENTAL INSTRUMENTATION at the request of Katherine Hogue MD for consultation. My final recommendation will be communicated back to the requesting physician by way of shared medical record or letter. The patient has the following: ACTIVE PROBLEM LIST BENIGN NEOPLASM SKIN NEC-exam Neoplasm of Uncertain Behavior of Skin Benign Neoplasm of Skin, Site Unspecified Other Seborrheic Keratosis Primary Hypertension History of Penicillin Allergy Svt (Supraventricular Tachycardia) (Hcc) Subjective CHIEF COMPLAINT: Back pain HPI: Patient is a 68 year old male presenting for pre-anesthesia consultation. Patient has history of back pain with 3 previous lumbar surgeries with the last in 2019. He has a left foot drop and wears an AFO brace. He has been having some left leg pain and spasming over the last year. Relieving factors include [place] and steroids. Aggravating factors include repetitive movement. Patient has been recommended for above surgery. PAST MEDICAL HISTORY Diagnosis Date Benign neoplasm of skin, site unspecified 08/2008 right anterior shoulder; Inflamed seborrheic keratosis 08/2008 left anterior axillary line PAST SURGICAL HISTORY Procedure Laterality Date PAST SURGICAL HISTORY OF 2019 lumbar surgeries x 3 REMOVAL GALLBLADDER REPAIR INCISIONAL HERNIA,REDUCIBLE FAMILY HISTORY Problem Relation Age of Onset Cancer Father malignant melanoma SOCIAL HISTORY: Social History Tobacco Use Smoking status: Never Smokeless tobacco: Former Types: Chew Quit date: 1999 Substance Use Topics Alcohol use: Never Drug use: Never MEDICATIONS: Prior to Admission medications as of 08/06/23 0948 Medication Sig Last Dose Taking carvedilol (COREG) 12.5 mg tablet Take 12.5 mg by mouth two times a day with meals. Taking Yes tiZANidine (ZANAFLEX) 4 mg tablet Take 2 tablets by mouth daily at bedtime. Taking Yes mupirocin (BACTROBAN) 2 % ointment two times a day for 5 days. Apply 0.5 inch with cotton swab (Q-tip) to each nostril in the morning and evening for 5 days prior to and including day of surgery. Magnesium Oxide 500 mg cap Take 1 capsule by mouth two times a day. No medication comments found. CURRENT ALLERGIES: ALLERGIES Allergen Reactions Penicillins Rash COVID VACCINATION STATUS: Covid Immunization Dates Overdue - Covid-19 Vaccine () Overdue since 11/08/2022 12/29/2020 Imm Admin: COVID-19 original vaccine, age 12+ yr, monovalent (PFIZER-BIONTECH - PURPLE TOP) 06/09/2020 Imm Admin: COVID-19 original vaccine, age 12+ yr, monovalent (PFIZER-BIONTECH - PURPLE TOP) 05/19/2020 Imm Admin: COVID-19 original vaccine, a (more content not included)... Normal [facility] Iron and Iron binding capaci ty panelon 08-06-2023 Iron [Mass/Vol] 99 ug/dL Normal 41-186 [facility] ital Comment on above: Order Comment: Roberto Carlos lion Type: BLOOD SPECIMEN Ordering Facility: [facility] Address: [address] [place] [address] Performed By: #### 2 4321-2, 2276-4, 27054-7 #### [facility] CLIA [id number] [facility] [place] [address] [place] Iron binding capacity [Mass/Vol] 252 ug/dL Normal 232-386 [facility] Comment on above: Order Comment: Roberto Carlos lion Type: BLOOD SPECIMEN Ordering Facility: [facility] Address: [address] [place] [address] Performed By: #### 2 4321-2, 2276-4, 13213-3 #### [facility] CLIA [id number] [place] [address] [facility] Iron/TIBC [Molar ratio] 39.3 % Normal 15.0-57.0 [facility] Comment on above: Order Comment: Speci men Type: BLOOD SPECIMEN Ordering Facility: [facility] Address: [address] [place] [place] [address] Performed By: #### 2 4321-2, 2276-4, 86456-2 #### [facility] CLIA [id number] [address] [place] [address] [facility] Laboratory - Blood bankon ABO group Nom (Bld) O [facility] No Panel Informationon 08-05 [facility] STAPHYLOCOCCUS AUREUS AND MR SA SCREEN, PCR, NASALon 08-06-2023 S. aureus and MRSA panel BARBARA+probe (Nose) Not detected Normal Not Detected [facility] Comment on above: Order Comment: Speci men Type: SWAB Ordering Facility: [facility] Address: [address] [place] [place] [address] Performed By: #### S APCR #### [facility] CLIA [id number] [address] [place] [address] [id number] [place] TYPE AND SCREEN,30 DAYon Blood group antibody screen Ql Negative [facility] ABO O Normal [facility] Comment on above: Order Comment: Speci men Type: BLOOD SPECIMEN Ordering Facility: [facility] Address: [address] [place] [address] Performed By: #### T SCR30 #### [facility] CLIA [id number] [address] [place] [address] [facility] [place] HIstorical Ab Scr Status Negative Normal [facility] Comment on above: Order Comment: Speci men Type: BLOOD SPECIMEN Ordering Facility: [facility] Address: [address] [place] [place] [address] Performed By: #### T SCR30 #### [facility] [id number] OF [facility] Linda 08-01-2023 CNPN Telephone (SPNSMN) BRADEN RODRIGUEZ ([id number]) 1955 M Date Time Provider Department 08/01/23 KATHERINE KEITH [facility] During your visit today, we recorded the following information about you: Wellington Castaneda, PATRICIA 08/01/2023 9:02 AM Signed Called patient to offer sooner surgery date Left message to return call to the office [employer] SupervisorMelia Vieyra 08/01/2023 9:43 AM Signed Patient is returning nurse call pertaining to below message, sooner appt call back [phone] Wellington Castaneda RN 08/01/2023 10:53 AM Signed Patient accepts sooner date of 08/18 New education class on 08/11 at 2 PM Will change post ops He voiced appreciation. No further questions. Allergies As of Date: 08/01/2023 Noted Allergy Reaction PENICILLINS 07/04/2006 2 - Rash Date Reviewed: 04/30/2023 Reviewed by: Lynne Ma LPN - Fully Assessed Reason for Visit: Patient Update [1234] Prescriptions as of 08/01/2023 - carvedilol (COREG) 12.5 mg tablet Take 12.5 mg by mouth two times a day with meals. - tiZANidine (ZANAFLEX) 4 mg tablet Take 2 tablets by mouth daily at bedtime. - lisinopril 10 mg ORAL Tab Take one(1) tablet daily. - Fluorouracil 5 % TOPICAL Crea bid 15 days R and L lat face to behind ears as discussed--wait 2 wk before starting Problem List As Of Date 08/01/2023 Noted Resolved BENIGN NEOPLASM SKIN NEC-exam [D23.9] 08/05/2008 UNCERTAIN BEHAV NEOPL SKIN [D48.5] 08/05/2008 BENIGN NEOPLASM SKIN NOS [D23.9] 09/08/2008 SEBORRHEIC KERATOSIS NOS [L82.1] 09/08/2008 Encounter Status:Closed by WELLINGTON CASTANEDA on 08/01/23 [facility] BRAD[facility]IGUE[facility] ([id number]) 1955 M Date Time Provider Department 07/14/23 KATHERINE KEITH [facility] During your visit today, we recorded the following information about you: Alyssa Lomax LPN 07/14/2023 12:15 PM Signed Received, Reviewed [facility] Attending Physician Statement [employer] forms and need signed by Dr. Keith Sent to Dr. Keith via [employer] for signature Leave dates: 09/02/23-11/07/23 No Post op appt scheduled as of yet. Alyssa Maldonado LPN Allergies As of Date: 07/14/2023 Noted Allergy Reaction PENICILLINS 07/04/2006 2 - Rash Date Reviewed: 04/30/2023 Reviewed by: Lynne Ma LPN - Fully Assessed Reason for Visit: Forms [913] Prescriptions as of 07/14/2023 - carvedilol (COREG) 12.5 mg tablet Take 12.5 mg by mouth two times a day with meals. - tiZANidine (ZANAFLEX) 4 mg tablet Take 2 tablets by mouth daily at bedtime. - lisinopril 10 mg ORAL Tab Take one(1) tablet daily. - Fluorouracil 5 % TOPICAL Crea bid 15 days R and L lat face to behind ears as discussed--wait 2 wk before starting Problem List As Of Date 07/14/2023 Noted Resolved BENIGN NEOPLASM SKIN NEC-exam [D23.9] 08/05/2008 UNCERTAIN BEHAV NEOPL SKIN [D48.5] 08/05/2008 BENIGN NEOPLASM SKIN NOS [D23.9] 09/08/2008 SEBORRHEIC KERATOSIS NOS [L82.1] 09/08/2008 Encounter Status:Closed by ALYSSA LOMAX on 07/14/23 Normal [facility] 06-11-2023 CNPN Telephone (SPNSMN) BRADEN RODRIGUEZ ([id number]) 1955 M Date Time Provider Department 06/11/23 KATHERINE KEITH SPNS[facility] During your visit today, we recorded the following information about you: Tara Sarabia 06/11/2023 5:31 PM Signed Received Attending Physician's Statement from [employer]. Sent via [employer] for processing. Alyssa Lomax LPN 06/12/2023 2:44 PM Signed I received [employer] forms for LTD. I called patient to explain we don't complete LTD, but he stated that he is not currently working and have exhausted his STD. He states the form is due 06/12/23. Sending to CC. Oliver to review Wellington Castaneda, PATRICIA 06/12/2023 4:42 PM Signed Neuro SPINE CARE COORDINATION QUICK NOTE Called patient to discuss disability paperwork. His PCP has completed his previous STD paperwork Patient is not scheduled for surgery until August. Discussed this office will be able to complete his disability paperwork postop Advised to reach out to his PCP to continue with disability until surgery. Patient states [employer] needs office note. This office will fax over the office note from 04/30 No further questions. Alyssa Lomax LPN 07/15/2023 8:47 AM Signed Forms completed. Documented in 07/14/23 Telephone encounter. Allergies As of Date: 06/11/2023 Noted Allergy Reaction PENICILLINS 07/04/2006 2 - Rash Date Reviewed: 04/30/2023 Reviewed by: Lynne Ma LPN - Fully Assessed Reason for Visit: Forms [913] Prescriptions as of 07/15/2023 - carvedilol (COREG) 12.5 mg tablet Take 12.5 mg by mouth two times a day with meals. - tiZANidine (ZANAFLEX) 4 mg tablet Take 2 tablets by mouth daily at bedtime. - lisinopril 10 mg ORAL Tab Take one(1) tablet daily. - Fluorouracil 5 % TOPICAL Crea bid 15 days R and L lat face to behind ears as discussed--wait 2 wk before starting Problem List As Of Date 06/11/2023 Noted Resolved BENIGN NEOPLASM SKIN NEC-exam [D23.9] 08/05/2008 UNCERTAIN BEHAV NEOPL SKIN [D48.5] 08/05/2008 BENIGN NEOPLASM SKIN NOS [D23.9] 09/08/2008 SEBORRHEIC KERATOSIS NOS [L82.1] 09/08/2008 Encounter Status:Closed by WELLINGTON CASTANEDA on 06/12/23 [facility]20[facility] BRADEN RODRIGUEZ ([id number]) 1955 M Date Time Provider Department 05/29/23 KATHERINE KEITH [facility] During your visit today, we recorded the following information about you: Wellington Castaneda RN 05/29/2023 1:10 PM Signed Surgery Planning Name: Braden Hackett Michael Age: [age] year old Wt: 91.5 kg (201 lb 11.5 oz) BMI: 27.36 kg/(m2) Procedure: 2-5 ATP Fusion with perc Diagnosis: (Z98.890) History of lumbar laminectomy for spinal cord decompression (primary encounter diagnosis) (M41.50) Degenerative scoliosis in adult patient Length of Surgery:6 Expected Length of Hospital Stay:3 Special needs: n/a PMH: PAST MEDICAL HISTORY Diagnosis Date Benign neoplasm of skin, site unspecified 08/2008 right anterior shoulder; Inflamed seborrheic keratosis 08/2008 left anterior axillary line PSH: No past surgical history on file. Nicotine: Tobacco Use: Never HGBA1C: No results found for: HBA1C CBC:No results found for: HB , HCT , WBC , PLT Optimization Labs:Blood Management Last In-person appointment w/ Dr. Katherine Keith:04/30 Please schedule PAT for [place] the week of 08/04. Please schedule pre op consent with Dr Keith: n/a Please schedule pre op RN education phone call: 08/27 at 10 AM Nurse ROBERTO Please schedule 2 week post op C Bonus ( virtual visit) Please schedule post op Xray before follow up visit Please schedule post op in person with Dr Keith 6-8wks post op [place] call: anytime Blood Thinner: No Consults: Type(s):None Provider: Conservative Therapy: Has done 3 surgeries, injections, PT>6 weeks, OTC and Rx medications for his back issues since onset in 1999. Currently with subacute foot drop as stated above Other Medication/Concerns: n/a Orders Nicotine N/A HGBA1C N/A Blood MGMT X Mupriocin/swab X XRAY X Surg Elective X PACC X Education X Urology/CT Lumbar N/A TREK/ N/A Wellington Castaneda, RN 05/29/2023 1:10 PM Signed Neuro SPINE CARE COORDINATION SURGERY SCHEDULING Patient accepts surgery date of 09/[address] Keith. Planned procedure is 2-5 ATP Fusion with perc . PACC will be in person. Medications reviewed : Yes}. Meds to be stopped prior to surgery : NSAIDS and Vitamins and supplements. Additional pre op clearances needed : none. Any implanted devices : No. Transplant History No Patient will get optimization lab work : Blood Management . Questions answered. Patient verbalizes understanding via teach back. Additional comments : lives at home with who will help with post op care Preoperative Needs Assessment Do you live alone or with someone that can help you? Lives with caregiver Will you have assistance available at home after your surgery to help with physical activities such a toileting or dressing? Always How many steps do you need to climb to get into your home? 1-10 Once in your home, how many steps do you need to climb to access your bedroom or bathroom? 0 Do you use a mobility aid for walking/getting around? (note, if more than one type of aid is used, select the one that is used more frequently) None Anticipated LOS > 5 days: No Significant home social issues or Current history or past history of substance abuse: No Wheelchair baseline, Homebound baseline, Significant gait instability, or History of significant falls: No Thora/lumbar fusion any level planned or 2+ level posterior cervical fusion planned: Yes Myelopathic or Spine tumor: No Probability of non-home discharge disposition : Low [5.2] Wellington Castaneda RN Allergies As of Date: 05/29/2023 Noted Allergy Reaction PENICILLINS 07/04/2006 2 - Rash Date Reviewed: 04/30/2023 Reviewed by: Lynne Ma LPN - Fully Assessed Reason for Visit: Schedule Surgery [1330] Prescriptions as of 05/29/2023 - carvedilol (COREG) 12.5 mg tablet Take 12.5 mg by mouth two times a day with meals. - tiZANidine (ZANAFLEX) 4 mg tablet Take 2 tablets by mouth daily at bedtime. - lisinopril 10 mg ORAL Tab Take one(1) tablet daily. - Fluorouracil 5 % TOPICAL Crea bid 15 days R and L lat face to behind ears as discussed--wait 2 wk before starting Problem List As Of Date 05/29/2023 Noted Resolved BENIGN NEOPLASM SKIN NEC-exam [D23.9] 08/05/2008 UNCERTAIN BEHAV NEOPL SKIN [D48.5] 08/05/2008 BENIGN NEOPLASM SKIN NOS [D23.9] 09/08/2008 SEBORRHEIC KERATOSIS NOS [L82.1] 09/08/2008 Encounter Status:Closed by WELLINGTON CASTANEDA on 05/29/23 Normal [facility] CT LUMBAR SPINE WO IVCONon 0 05-04-2023 CT LUMBAR SPINE WO IVCON * * *Final Report* * * DATE OF EXAM: May 04 2023 8:14AM [facility] 0508 - CT LUMBAR SPINE WO IVCON / PROCEDURE REASON: multiple diagnoses * * * * Physician Interpretation * * * * EXAMINATION: CT LUMBAR SPINE WO IVCON CLINICAL HISTORY: Chronic low back pain, unspecified back pain laterality, unspecified whether sciatica present Chronic low back pain, unspecified back pain laterality, unspecified whether sciatica present TECHNIQUE: Spiral, high resolution axial unenhanced images were obtained from the thoracolumbar junction to the sacrum with sagittal and coronal planar reconstructions. MQ: [id number] CT Radiation dose: Integrated Dose-Length Product (DLP) for this visit = 1348 mGy*cm. CT Dose Reduction Employed: Automated exposure control(AEC) and iterative recon COMPARISON: Scoliosis radiographs 04/30/2023, MRI 02/25/2023 RESULT: Counting reference: Lumbosacral junction. For the purposes of this report, L4-5 is considered the level of the iliac crest and there are 5 lumbar-type vertebrae. Anatomic variant: Transitional L5 vertebral body. The most caudal rib-bearing vertebra is counted as T12. Occup Therapist (topogram) images: No significant additional findings Alignment: Dextroscoliotic curvature of the lumbar spine with apex at L1. Bone marrow /fracture: There are postoperative findings of dorsal decompression laminectomies at L3-L5. Severe degenerative disc space narrowing at multiple levels, most pronounced at the L2-L5 levels, eccentric to the left at L2-L4 from scoliotic curvature with vacuum disc phenomenon, endplate sclerosis and irregularity. Schmorl's nodes with sclerosis along the endplates at the T10-T12 endplates. Chronic fracture of the right L3 pars interarticularis likely contributes to scoliotic curvature. No evidence of a lytic or blastic process in the visualized spine. No evidence of acute fracture. Paraspinal soft tissues: The paraspinal soft tissues planes are maintained. Lower thoracic spine: At T10-T11, mild bilateral foraminal stenoses from facet hypertrophy. Small left paracentral disc protrusion with disc bulging minimally narrows the canal. T11-T12: No significant canal or foraminal stenosis. T12-L1: Eccentric disc height loss and disc bulge with facet and ligamentous hypertrophy result in mild right foraminal stenosis and mild canal stenosis. Left foramen is patent. L1-L2: Disc height loss and bulging with left paracentral disc protrusion, facet and ligamentous hypertrophy result in mild canal and foraminal stenoses. L2-L3: Eccentric disc height loss and disc bulge from scoliotic curvature and facet subluxation result in effacement of the left lateral subarticular zones with mild to moderate canal stenosis. Severe left and moderate right foraminal stenoses. L3-L4: The canal is dorsally decompressed. Severe degenerative disc space narrowing with posterior disc osteophyte complex, eccentric disc bulge from scoliotic curvature result in moderate to severe bilateral foraminal stenoses, worse on the left. There is effacement of the subarticular zones from facet arthropathy. L4-L5: Posterior disc osteophyte complex and disc height loss with facet arthropathy result in moderate left and severe right foraminal stenoses. There is effacement of the right subarticular zone mildly impinging on the traversing right L5 nerve. The canal is dorsally decompressed. L5-S1: Canal and foramina are patent Sacrum and iliac wings: The visualized sacrum and iliac wings are within normal limits. IMPRESSION: Multilevel lumbar spondylosis with scoliotic curvature result in canal and foraminal stenoses as detailed. High-grade foraminal stenoses at L2-L5. Postoperative findings of dorsal decompression at L3-L5 with patent canal. Anatomic Lumbar Variant: Transitional L5 vertebral body. L4-5 is considered the level of the iliac crest and there are 5 lumbar-type vertebrae. Observer Helper: PSCB Transcribe Date/Time: May 04 2023 9:20A Dictated by : CLAIRE LAZAR MD This examination was interpreted and the report reviewed and electronically signed by: CLAIRE LAZAR MD on May 04 2023 9:32AM EST [id number] Normal [facility] CT Lumbar spine WO contrasto n 05-04-2023 [facility] CNOVon 04-30-2023 CNOV Office Visit (SPNSMN ) BRADEN RODRIGUEZ ([id number]) 1955 Date Time Provider Department 04/30/23 12:20 PM KATHERINE KEITH SPNSMN During your visit today, we recorded the following information about you: Pulse Blood pressure Weight Height 78/minute 137/69 91.5 kg 1.829 m Katherine Keith MD 05/12/2023 8:04 AM Signed SPINE SURGERY OUTPATIENT CONSULT This is an in-person visit. Staff note: Previous decompression 2-5 with good central decompression, Advanced degenerative changes leading to LR stenosis and foraminal stenosis throughout L2-L5 ATP Fusion with perc screws, RBAEO reviewed in comprehensive detail, all questions were answered to stated satisfaction, patient elected to proceed Risks of surgery were discussed in detail with the patient. Risks of surgery discussed include but are not limited to, the risk of DVT, PE, and/or . Cardiovascular and pulmonary risk, as related to the patient's preoperative clearance and assessment by the perioperative team as well as anesthesia. The risk of neurological injury was discussed in great detail, including discussion of a spectrum of partial dysfunction through complete dysfunction. The risk of nerve root injury was discussed that may result in weakness, paralysis, sensory loss, and/or intractable pain and supplied nerve root that might either be transient and/or permanent in nature. The risk of compressive epidural hematoma and/or compressive epidural abscess was discussed with the patient that may or may not result in transient and/or permanent bowel and bladder dysfunction and/or transient and/or permanent lower extremity dysfunction such as weakness, paralysis, sensory loss, and/or intractable pain. The risk of instability status post surgery was discussed, the risk of superficial and deep infection was discussed. The risk of durotomy, and potential complications of spinal headache, and/or persistent leakage, resulting in the need for further surgery, and/or drain placement was discussed. The risk of no improvement in symptoms despite technically adequate decompression of the compressed structures was discussed in extreme detail. The risk of need for further surgery for any reason was discussed. The risk of complications related to fusion were discussed in detail. The risk of pseudoarthrosis was discussed. The risk of hardware failure including hardware pullout, crystal breakage, screw breakage was discussed. The risk of screw loosening was discussed. The risk of need for further surgery for hardware failure, pseudoarthrosis was discussed. The risk of screw misplacement resulting in radiculopathy or neurological injury was discussed. Discussed hip weakness and pain due to approach and other associated risks that are unique to lateral approach to the spine including but not limited to bowel injury, nerve root injury, psoas weakness, etc etc The risk of need for further surgery to alter trajectory of hardware was discussed. The risk of needing to extend the fusion cephalad and/or caudad and the reasoning behind this was discussed. Adjacent segment breakdown that may or may not be symptomatic was discussed. No guarantees were offered nor implied regarding final outcome status post surgery or presence or absence of complication perioperatively. After a thorough discussion, the patient had many appropriate questions, all questions were answered to the patient's stated satisfaction. The patient voiced excellent understanding of both the reasoning for offering surgery, the potential complications regarding this particular surgery, and has elected to proceed. We discussed the minimum criteria for elective surgery: A. Imaging fits with history and examination and has surgical correctable findings B. Conservative modalities have been trialed in a meaningful way that have failed to provide relief C. The pain is significant enough to interfere with QOL and undergoing an irreversible surgical procedure makes sense to the patient from a symptom severity standpoint A and B were confirmed by me, C was confirmed by the patient. With this in mind it is reasonable to proceed with: As above Katherine Keith MD SERVICE DATE: 04/30/2023 PCP: Ester Cain MD REFERRING PROVIDER: Tello Gaspar [address] [facility] [place] [address] Consult requested for an opinion regarding the evaluation and treatment of Mr Rodriguez. My final impression and recommendations will be communicated back to the requesting physician by way of the shared medical record or letter via US mail. SUBJECTIVE Braden Rodriguez is a 68 year old male presenting with spouse. CHIEF COMPLAINT: Left Foot Drop, BLE L4 Numbness HISTORY OF PRESENT ILLNESS PRECIPITATING EVENT: Injury at home, sitting in low chair in February 2023 DURATION OF SYMPTOMS (more content not included)... Normal [facility] XR LUMBAR 4V AP/LAT/ FLEX/EX Ton 04-30-2023 XR LUMBAR 4V AP/LAT/ FLEX/EXT * * *Final Report* * * DATE OF EXAM: Apr 30 2023 10:29AM JIX 5231 - XR LUMBAR 4V AP/LAT/ FLEX/EXT / PROCEDURE REASON: Spinal stenosis, lumbar region with neurogenic claudication * * * * Physician Interpretation * * * * HISTORY: Spinal stenosis, lumbar region with neurogenic claudication TECHNIQUE: Lumbar spine, 3 views COMPARISON: None. RESULT: Transitional lumbosacral junction. L5 is partially sacralized with sacralized transverse processes and bony bridging across L5-S1 disc space. There is dextroscoliotic curvature of the lumbar spine. No significant subluxations on the sagittal view. No significant change in alignment between flexion or extension. Postsurgical change from prior posterior decompression L3 and L4. There is severe disc space narrowing eccentrically to the left at L 2-3. Moderate disc space narrowing eccentrically to the right at L3-4. Mild disc space narrowing eccentrically to the right at L4-5. Small multilevel anterior endplate osteophytes. There are lower lumbar facet degenerative changes. IMPRESSION: LUMBAR DEXTROSCOLIOTIC CURVATURE WITH POSTSURGICAL AND DEGENERATIVE CHANGE DESCRIBED. NO INSTABILITY Observer Helper: [facility]on[facility] Transcribe Date/Time: Apr 30 2023 10:33A Dictated by : HANK LUCIO MD This examination was interpreted and the report reviewed and electronically signed by: HANK LUCIO MD on Apr 30 2023 10:37AM EST [id number] Normal [facility] XR Lumbar spine Views W flex ion and W extensionon 04-30-2023 [facility] XR SCOLIOSIS 2V PA STAND/LAT on 04-30-2023 XR SCOLIOSIS 2V PA STAND/LAT * * *Final Report* * * DATE OF EXAM: Apr 30 2023 1:41PM AOX 5251 - XR SCOLIOSIS 2V PA STAND/LAT / PROCEDURE REASON: multiple diagnoses * * * * Physician Interpretation * * * * EXAMINATION: XR SCOLIOSIS 2V PA STAND/LAT HISTORY: Scoliosis. Pain in spine. History of lumbar laminectomy for spinal cord decompression Degenerative scoliosis in adult patient Chronic low back pain, unspecified back pain laterality, unspecified whether sciatica present Chronic low back pain, unspecified back pain laterality, unspecified whether sciatica present. TECHNIQUE: XR SCOLIOSIS 2V PA STAND/LAT Laterality: NOT APPLICABLE Number of different views (projections): 2 M: XB_1 COMPARISON: RESULT: Moderate thoracolumbar scoliosis measuring 21 degrees between T11 and L4-5. Lower lumbar laminectomies. Normal vertebral body heights. Mild to moderate degenerative disc changes more so in the lumbar spine. Maintained sacroiliac joints and pubic symphysis. Hip joints are maintained. No acute fracture or dislocation. There are no bony erosions. IMPRESSION: Moderate thoracolumbar scoliosis. Observer Helper: [facility] Transcribe Date/Time: Apr 30 2023 2:05P Dictated by : CAMRYN MOSES MD This examination was interpreted and the report reviewed and electronically signed by: CAMRYN MOSES MD on Apr 30 2023 2:06PM EST [id number] N Normal [facility] XR Thoracic and lumbar spine Views for scoliosis W standingon 04-30-2023 [facility] Lab Reportson 03-07-2023 Lab Reports [id number]#1 .00TIFF [facility] Reminderson 12-31-2022 Reminders - From: Marika Roberson To: EU - Recalls Lue; Sent: 10/30/2022 12:50:59 EDT Show up: 11/30/2022 12:50:00 EDT Subject: Reminder Message Due Date/Time: 12/30/2022 12:50:00 EDT Pt is to get PSA prior to f/u appt. Order was given to pt. Patient was seen in office 12/05/22 [facility] Lab Reportson 12-23-2022 Lab Reports [id number]#1 .00TIFF [facility] Formson 12-06-2022 Forms [id number]#1 .00CD:127 [facility] Pathology Noteon 12-06-2022 Pathology Note [id number]# 1.00CD:127 [facility] Screenson 12-06-2022 Screens [id number]# 1.00CD:127 [facility] Screens [id number]#1 .00CD:127 [facility] Patient Educationon 12-06-19 23 Patient Education Oncology Prostate Cancer Screening [...] Where to find more information ? The [place] [employer]: www.cancer.org ? [employer]: www.auanet.org Contact a health care [...] flu (more content not included)... Normal [facility] Urology Office/Clinic Noteon 12-05-2022 Urology Office/Clinic Note [...] member today. SINDY 14 (15). CT ab w/ 04/11/22 - shows a fat filled ventral [...] upon bx. and 17% likelihood of detecting Garrick scores >=7 cancer. MRI of prostate 10/28/22 [...] pain Gross hematur (more content not included)... [facility] Comment on above: Result Comment: Elec tronically Signed By: Shae Guillory MD\.br\Date and Time Signed: 12/05/22 13:41 EDT\.br\Electronically Co-Signed By: Mary Marino\.br\Date and Time Co-Signed: 12/05/22 13:23 EDT Operative Reporton Operative Report [id number]#1 .00CD:127 [facility] Lab Reportson 11-20-2022 Lab Reports [id number]#1. 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 The [place] [employer]: www.cancer.org ? [employer]: www.auanet.org Contact a health care [...] adds flu (more content not included)... Normal [facility] RAD - MRI Reporton RAD - MRI Report [id number]#1 .00CD:127 Normal [facility] Urology Office/Clinic Noteon 10-30-2022 Urology Office/Clinic [...] upon bx. and 17% likelihood of detecting Mansfield scores >=7 cancer. MRI Prostate wo/w Con [...] Cancer Screen (more content not included)... Normal [facility] Comment on above: Result Comment: Elec tronically Signed By: Shae Guillory MD\.br\Date and Time Signed: 10/30/22 18:20 EDT\.br\Electronically Co-Signed By: Marika Roberson\.br\Date and Time Co-Signed: 10/30/22 11:03 EDT Creatinine (Bld) [Mass/Vol]O rdered By: Shae Guillory on 10-28-2022 Creatinine [Mass/Vol] 1.0 mg/dL 0.6-1.3 [facility] Comment on above: ER/ESD physician is notified/shown all ISTAT results.Critical values may be confirmed by laboratory testing ifdeemed necessary by ER attending doctor. MR prostate wo/w conon 10-28 MR prostate wo/w con [facility] [place] [address] [place] [address] MRI Report Signed Patient: Braden Rodriguez MR#: [id number] : 1955 Acct:[id number] Age/Sex: 67 / M ADM Date: 10/28/22 Loc: Room: Type: [facility] Attending Dr: Shae Guillory MD Copies to: [...] Pisano Jr., D.O.10/28/2022 1:56 PM Dictation Location: [place] [address] Transcribed By: [facility] 10/28/22 1356 Dictated By: James Pisano Jr DO 10/28/22 1351 Signed By: 10/28/22 1356 [facility] Lab Reportson 10-20-2022 Lab Reports [id number]#1 .00CD:127 Normal [facility] Reminderson 10-16-2022 Reminders - From: Marika Roberson To: ALFRED - Jay Lue; Sent: 09/04/2022 08:35:23 EDT Show up: [...] w/r Lue 10/30/22 to review results. 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 The [place] [employer]: www.cancer.org ? [employer]: www.auanet.org Contact a health care [...] adds flu (more content not included)... Normal [facility] Physician Referralon 023 Physician Referral [id number]#1 .00CD:127 Normal [facility] Screenson 09-04-2022 Screens [id number]#1 .00CD:127 [facility] Screens [id number]#1 .00CD:127 [facility] Urology Office/Clinic Noteon 09-04-2022 Urology Office/Clinic Note Chief Complaint elevated psa HPI Staff Evaluation requested by Dr Ester Cain due to elevated PSA. Pt is a [...] history for this patient from Dr Ester Cain, PCP I have reviewed and verified the [...] pt evaluation of elevated PSA. CT ab w/ 04/11/22 - shows a fat filled ventral [...] by the scri (more content not included)... [facility] Comment on above: Result Comment: Elec tronically Signed By: Shae Guillory MD\.br\Date and Time Signed: 09/04/22 21:05 EDT\.br\Electronically Co-Signed By: Marika Roberson\.br\Date and Time Co-Signed: 09/04/22 08:38 EDT Lab Reportson 09-01-2022 Lab Reports [id number]#1 .00CD:127 [facility] Physician Referralon 023 Physician Referral [id number]#1 .00CD:127 [facility] Provider Letter FTon 06-03 Provider Letter [facility] June 03, 2022 BRADEN RODRIGUEZ [address] [place] [phone] BRADEN RODRIGUEZ 1955 To Whom It May Concern, The above named person may return to work without restrictions 06/03/22. Sincerely, Dr. Camryn Agustin MD General Surgery [facility] Ambulatory Visit Summaryon 0 05-21-2022 Ambulatory Visit Summary BRADEN RODRIGUEZ :1955 Visit Date:05/21/2022 Ambulatory Visit Instructions Your Diagnosis Incarcerated epigastric hernia Your Care Team Attending Physician - VAMSI JERNIGAN, Camryn Rodriguez Primary Care Physician - Ant JERNIGAN, Ester This Is Your Medications List Contact prescribing [...] Kraus When: Only if needed Where: [address] [place] [address]- Medications What How Much When Instructions Unchanged [...] SVT (supraventricular tachycardia) Ventricular premature contractions Normal [facility] General Surgery Office/Clini c Noteon 05-21-2022 General [...] VAMSI JERNIGAN, OJ Kraus Only if needed [address] [place] [address]- Additional Instructions: Problem List/Past Medical [...] - Not Given Patient Refuses Normal [facility] Comment on above: Result Comment: Elec tronically Signed By: VAMSI JERNIGAN, Camryn Baker\Date and Time Signed: 05/21/22 15:01 EDT Coding Summary.on 05-15-2022 Coding Summary. CD:[id number]:[id number] G h0bWw+PGhlYWQ+UA4OCWG xD43ghQZsnB2pY3TZPHkD SywgQVBQTElOSyIgbmFtZ Y1jbQJsGZBc IC8+DK9mDQZaPsngpTPun 1Q8oBI7F73owz1kXPmvhR N2FUYgMiSprfxsd1bscVt 6IDcuNmluOyBt HKIipV08RXG5zK07Zw99i GIylVAqc9ykeDg2HqLgJN GsBSG6sCuoOPuia9RiKDQ hC07eiSFpb6T2 QFOsxFbtuQDiWvVdyCY6v K2oULsclczee7mrumenLa a8be09dMIsy4X5nRV2L4J rifN0NTDtrWNt UpkioOZSjC8uiplns3tfe faeIeChFOIgYEe2HFv4UK DrhBaiPuTbME56DAF1CYG pxaCbS5PtUEYt sFnmVaF1l3C4Da7MZ3XKD sgiI3SNTDPCEEljqWU+PC 74hi49J4SbCvyaVit6IBA uEMY5iVU6qS1p FDXrWYdpk2E8tIQ9B3Myn cYwak5ab1tkVGZaJHqzC2 8opLYss9Q2SQTkmHT4RLZ qoKvtGnVnpL38 Oyc+SWVmbZdyz4PlBaqxc 5arr0tbwFt8GuquUDSvfc QskHwiPRB9p2DqLa4tRFA kyPW5fAC8iD3b BqMjHzV8YPoaM688QoHvw WFsGrktI85iQ3MvlIZ+PH VyDwi0EAOhrHarPF2hV7B hZGRpbmctbGVm bJwmAP3uIOVrnqgbCBRwy O6gKCWdI9b9VwCxMnV1RN svP9CjSBAavzdiKs14eK5 wUlAsKrP0KXhs V0RefwO2UCIafEBhNBiyI RZ6R23zu8S7HOZxGDRgYA T3oGT3aT7xaHwjeeadrNS mdDsgdmVydGlj ICvaAMmyP556JHWskJzlP kNvZGluZyBEYXRlOiAgMD MvMDgvMjAyMzwvdGQ+PHR yDZF2lVxnOOCn eNGqMStsZm7mfXittZfqE X7vKKSzvaatFPKwpU5vZV KofBXowXikKV8eWUWryio bp626AlZvUQL9 OPVlzUOdO0CdbC7tWbXbW BNaEXUlO7XdvDVrLVurQ8 67CRwhBfZ9QZNzxsHqP6Z sLWFsaWduOiB0 j9U1Vj9Ko6QxnmxuG8Vsx TTsQqViUadnZDa6J4ZtGn wvdHI+OO09ISOvTO37GEp 7MNO1gTrjYXzz RAVrP0MqgP8lHaTtEGClT GRkOyc+PHRhYmxlIHdpZH RoPScxMDAlJyBzdHlsZT0 jZo3xQPHlDLMg eDxieVFqGpSmy4dkWBNwM BvlPP3yeYcwG9AamLZ4ZG Ctg7u6To64C29kU7SldRC +XZLppMD0bBC2 pC5iSqPcOlB1POkqQ930T vLzxYTlUaoaj2fxx2ypsR i3WyM0TKOcklZtpGwgDXE 5w3SjNe68E48l IHdpZHRoPSIxNSUiIHZhb Bqyzb2awI7pYr2+PGNvbC I0mRK4gF3zAbDkOpU1OOw qF758OvOztJVp Hgyhs7bly7zqqRk5IgLcK QXxltSkjIpwMRL1z3MuAu 79C8VpuZszm8EbBwe4ab8 2aLXfj5G8sXI3 T1LvXHDmbbblwXVocGmbJ M0hXKIialgoPPPeqM2lZB YtD0s3JaIhEgW0CPvzA5G afnW2NMZwoNVs GDHhoDAFpR5egntrp6wfm iuvWoJpSVHiGYs7KPc8EF AyuThuScQeXHU1SuK5KRD 8aPAjoY2tpFox uedkkR8tVsp+AUN4iHDjj IXLTK3gYqvmyIZ+PHRkIH S1eCbaOBazQPXdoT6tNBR oJ0z0BkIlQuW2 RKveP0OofcB3DLQwlTHbP OUwvPEElD2kumyhj0jbfv upFbFpZVTaFJo2GTo3EFA saWduOiBsZWZ0 JuM0CNY0aZDzpI8xtDxog jsqdT3sGby+QmlydGggRG C6CRb0Z2ByUgv2EQGnyAs lZH3vdRCdCMaw Wx0dvZxvuXskDP2iZTWdn xfom251OjQrh4pvHGCtiC MlDMlbMMJ0U47xe6E0RMB rJGJjZTW6cWI4 vI2dyOrmqablhXPbiKfvp qQnlOqmVQnnCMkrA745AD GvlRsbExBpUVi3D5ZcSxz 6QEFjgWjxGV7l mHWyCAigIb6psZrcnCioA B5cFXBixlkka308GiKcd2 vnKWNgnNMjDMflJGS2N17 yd0S4JMJpHRDt GBX6iKD1qX4grGfwiymgt GVmdDsgdmVydGljYWwtYW prW035JTXrdCeoEsYzzVa 4X0UbXyn5JKJa xNzmEQ6sjWHhSNjdOq1sz TatyLtsGG7bTJLipxqpc1 40GqKhk9zwRVVvsUXuOKw oQRT7K50dg6D9 QJAjZVTqZWZ5xFL7sR9la GlnbjogbGVmdDsgdmVydG nuGCayTKgpL384UIKftCu nPlBhdGllbnQg FWmcSMe9J3TvCckhiOZ+P D50OBSdND74eSWfeBWds7 bzcKv9RsCxFFVyZQW7hQc xUJxkg7VlJCPz C24yyYTmp6Z6SEDeuDfog BWfPiAwoLG1yQ0iOIyzqm xnz7jimsyxAdmar6fkbt4 1oT89J21bLBjj ZHRoPSIzMCUiIHZhbGlnb e3fxA3bUo9+IHNkuKV4xO M7tZ0cYPHeJaD4GKgwO01 9InRvcCIvPjxj b7evi0byuKj4HsL8QJDpv hRdtDocBWI3r8WsLc65W3 9sIHdpZHRoPSIyMCUiIHZ dkXujjs0pyK7k Ii8+SZCxbHL8yUO8gB5vQ qWfGzS4KZshZ203WqSkyN LfMpadA32uL8EjzEG+PHR aSkb2SHFzaCww NR8flBIzTJdxTy5gEQI0Y jDxQmMjDOxfM2IoQFRfgg dskndfvEQ7WKWxFMJskH8 1Vw5tqDbdZBDm rDFZaL3ckwnbr2kravnrG qXfOSOtFUq0DMq5DKWorB vmGzXuZMN2IxS6UZR8yKJ ofO6cmOnprpvg qI7aU6IeLTAapfpeXc43t P2wNsSsUjJ1GGnvLxq+T0 xJVkVSLCBSSUNIQVJEIEw 5W9WwFga9OEBr mPfeTA0awKNkXMssFk7oi ZdfvZydCW5oYYAirvfpGN AaeV9rYGFrlAPuiXknIU8 oIZUsoqlst331 OtAlLHF6VNBueVPvY3Wab F8rQbFsNVWcRPBjM7UyzQ VkYWkwG303CUlsQeE3QRB jkwCuS4OnDWMm nUmeZbH1q0B6Fd9xJM4dD j3oKBZ7RP88MN39hOBix5 V3aIJ6H6TyCRBadkiixdc sxDT9VIWdHWUe qJ55eGNjMSfhGf8fl8J1l 651QSVtFDYbzB04Aq2ptA jkTDAhzFYPqV0xpypsg6j vcjogIzAwMDAw TId2IYk0TVCydZejYtZwD ZN7JiK7BSP6bOHnaP6cmV rcvyqvtK5rHih+NjUgWWV zolF4Y0AhSju0 SNApdHkaLB9mmVYhMFrgW w0xpIhjoCflSS8jGJAxrj kqNIBydY3vFPHlyVMceJa bUI1mHDYrjuvt s548PiIjALW2MWNluQEyT 8GiaW2gVxUgJGDyWAExX5 VqpDCzJPlgM054DQulMiJ 5KZZneiXtW5Yq XQBodNslSmS5v8P8Bz5OB BaaPV29PS69eCBtn5T7xX E6D8ZbHERmqfzzgyuyeBR 2WJNeKVZgbH39 yYVzPQpyCg3fi5D3v155O PZeLCEisH86Aj6isFojGT SooGMYeZ7sghxis4mjvsr gIzAwMDAwMDt0 NYz6ZVUtnZdmUxAkPRH9G uY5SXD7vVTydJ7pzJfoha fskL4eOal+H2M0iHL8rSO udDwvdGQ+PC90 ai88E4LfNmgaKyq2NCXjB OQ6hTP3aT5qWMKjOVpnk2 Q2bRP1P8ArirTmyb1cq8b tXANsPMgaW80t oFQrx0T4CMLnnTG3OGRks UubWiZcmL76Hef+PGNvbG eaq4AkZqqtr3zue7oztMa 9IjMwJSIgdmFs sBbiZZM5q2MdKr03V66yF HdpZHRoPSIzMCUiIHZhbG yirq2qlW3mFh3+PGNvbCB 1zOP2hS6gJnOy SbM3TFiuA391DiVhgGQiV kgfo4jkw9ihdIc1KxWkMQ NwfbGaoDxhQKC7h9AdZv2 0K1UvtBrke3Up Oeo7jb69cYDrg3A7oBV2V 3BhZGRpbmctbGVmdDogMC 6tIQOcdyfdTDEtsV2jEKV aX2e5XkUnNvI9 JMwtF2QpsvQ1ZRLyySDhO LPmwIYIkP1pesceo3yfro zdCpRdQTYqUGk0URy1YOI saWduOiBsZWZ0 CiW2FQI8mCEfqF3vxPtwr kbtsH8qNnf+BIa5v3axoZ NpSN6szBU7FF39VO58pUQ ok7Q5eXQ4Z7Cq BQCcdxtzvqhhiKW0YFFrT SMyjJ79Nk8jvVbkMf6hBH RvOUU9BLWuuTTjZ1VokT2 yOiAjMDAwMDAw B1EoeGFxUWudL265UBlqU oP4XQTornUiO7AsXNIajT aoYxD1v7A5Ye1HFJ34GZ2 4LO01tWRms0G6 fWY0U6NiTAMqcfanocfku IQ0ILOoSWWwuE00Bw0gcF efKb4cDATrSHS3NLFnlWJ dC1XaqC3iGtVq PIUoFYIdH3XgrLYsFBkrP 829ZVgkBlC8MSDphsObU3 KxZYOvpRokQhI5p2G0Gy1 QYk79AG78SB48 hXOde6K4fBI1X5OqVOEyy nccvjxszLQ2TMJvOUMglN 09Tr1ekRiyXa4tAFXhFLC 3XWWriOMgW0Si qN7yDzLfCAZvWMNyT7Tif DHuQMtpK409FTqqIqI6DU AinpShB4DkPZXhaDvyCpK 1k6Y2Lx4GVExd qsp5S7JvPgzkeFZ+PC90Y YEdBF32rFKgkEKgx5xoiQ g4BuKhFEPiKQX6qBpoLTf am3MuECTpC38c bGFw (more content not included)... [facility] Physician Orderon 05-14-2022 Physician Order [id number]#1 .00CD:127 [facility] Formson 05-10-2022 Forms [id number]#1 .00CD:127 [facility] Ambulatory Visit Summaryon 0 05-07-2022 Ambulatory Visit Summary BRADEN RODRIGUEZ :1955 Visit Date:05/07/2022 Ambulatory Visit Instructions Your Diagnosis Incarcerated epigastric hernia Your Care Team Attending Physician - Camryn AGUSTIN MD Primary Care Physician - Ester Cain MD This Is Your Medications List Contact [...] Friday. 2022 2:40 PM EDT With: Camryn AGUSTIN MD Where: General Surgery Nill/Lois Burt [facility] General Surgery Office/Clini c Noteon 05-07-2022 General [...] - Not Given Patient Refuses Normal [facility] Comment on above: Result Comment: Elec tronically Signed By: VAMSI JERNIGAN, Camryn Baker\Date and Time Signed: 05/07/22 15:22 EST IntraOperative Documentson 0 05-03-2022 [employer] [employer] [id number]# 1.00CD:127 Normal [facility] [employer] Documents [id number]# 1.00CD:127 Normal [facility] Coding Summary.on 05-01-2022 Coding Summary. CD:[id number] G h0bWw+PGhlYWQ+PO4JWEC xH65jjTLikJ1GO5zTBC4B TPYEVRKDMI6EMJ1vnEA5G XrzA7XjqaMo KvkggMGcAO39YPq7XNU3i RtjKSxjzT7urCCwH3j3Np WkBN22dS51KQjyLSBsLjI 3LjZpbjsgbWFy L0bdMoPnfZSuDtd+PHRhY mxlIHdpZHRoPScxMDAlJy EncImcWY9tIi9iITDuMQW vbGxhcHNlOiBj p4uaCYXxZYcbKL4ujUzgU 3BdxJF0UDAjb3d2Pm80iL I+VODfRVA5iYwqIHvnd32 7NmSbt3dpFOZ5 dGNdQHlhTXG9L67mu9T3V SVtNFFjCWM4oDJ3eB3toB vzdczvG0DdmDIeSzL8FZH 1jZGacS8deFlh lcbtrM7aZlr+F36YYJ8VU ZAAEK1LWln0S8EvUrainX I+YF64IFSnMH21iUGhfDD ya1olrCz4RjJb XIMsCKD2eAwuLSoyd7BoZ XQmB79dxTYog8B9ITQdxK jsqEKaAnKcaFZ4dA6tHWj ridohx3gavexi Doglc8nvmo65vU53Y17qH ZefUUPdQLN2CNDlALWndU vibt2gmJ8uZn2+IBtrw7h on3jofXt0QmWq IYQevgMhhOasMQY4h5UwH d72Q8EncAzxd8RtBam3hu 41mKIpt5N8dIF7XPolFBY thD9oLJzvIqR9 YIVdZoGvqP97aDEgLOxvW d2piOcpaYbmIV8lCXJcns jjTXDxeP7wMBIesIFsgEf mMI0pLXMxajfr l985GjNgKEM6NHOqgCDbN 0HybY3hHoOcOGWfWQPvC9 MymTQeAOqoL493RXdzBnU 4FFFsfmUzL2Jb OCBetZgyAqN3w2Z1En4Ae 1JypxipFUF3SBevJVUcNi JcTlNgYrK5V5GkIhz7NRO qwYkvGX8hI3Um OKCdndnogtvkxQV2AARnS ANggA58xOYiJCbrCq5jg5 H6l730ZDFlUYEcpG01Ot0 udDogMTBwdCBU xN8swwdcb3amexpbXuRsD PDpJQu6MQc5NNZobNwmCg RjRLR4LbE9BRC0xBCbfZ7 rcYhgapowzN2q Oyc+P78pvW7fUAW1AMD0n jtwNGLqqhGpDW85UP19F9 RyPjwvdGFibGU+PGRpdiB tjLfsOP0uYvCw c5qnl8ZvIQlfW4PqSJMjP HtmJkm8GBMiVCE1yYT7kW 8tZLAnDEuqm3J0eSL3U0Z eypQfwq6tp5ct TDJpLIciK32qpXYeb5B7E DYtiTT7EXEliNzfJiRcxN 93Oyc+CHSliMrvl8WsEwp he9wqu9gaeAs0 LrRnYSVzgyEkiHskRUQ6k 3EsEu63W53mPZphXPHhAJ MdRQPhJHMhsNfsbh4pjX5 wIi8+PGNvbCB3 vGA3lT5wSTOpTaB6GOlfR 694KjYjoTBaPuubq5dvv6 bokBk5TmEkQNTxtcHgrHy vTLP3i8QtCk92 S21tRIvbCIFeWDYbZXNdL PWmaUdrln6zeW8dEn9+PC 7ky0hjnn35jD51wXD+PHR rWBC9xFgpSTse PERxuV0bSUkbSoC0VJPuG fBxxF49mNHjRVwyAy8ulD dmcEmyHY3aZXMzupjvs15 5ZeTzf7jmAVAv tFVuFXxaWRX9U42ln0U0H JCyCPVtBUI9yPP2xI6eaI lnbjogbGVmdDsgdmVydGl vYVryNZazT868 IHRvcDsnPlBhdGllbnQgT bNmRWu7L5TgGsz8BFQqgU ncQU8juRZzFLjcJx9huOv mmEvkCK4kRJCb ptnpb075IgNor2bvKLIst YOrMPueGUI4L66pv5R8FZ PxHCJwQVA8xMM2xC9cjPm nbjogbGVmdDsg bzEetCzwTJodKSbfR068I HRvcDsnPkJpcnRoIERhdG I1IX16MS97vANfr8V7hBB 8S9CxPCObtody fbuflLH9YEJcDEBnzH87I d3yhWgaRz4wECXiEPE4IU JkrTVjE7UoxG4dRiDbTYF oIGZxS2ZwtZNh QQxeK976TTzoRgQ1ZXMzz oJkW2IvZDXtmItoFoW2l6 L8Nq2BO1Z0JS94SC47uQR za8R0zCN3E5Fg KXOjzkwvfvktrGG7UMVqG ALukP35Ad6dgCrkNu8mPE BdFIF4TUSbjCQjF6DekA2 yOiAjMDAwMDAw L3AtkPAuUGqbJ702BQoxF bI9YCSvvfDyD4RqENHtwY flDnS4b8K6Kt5HWNr3AJ4 1DN25vDWwy9D6 tJU3P9CdZEHqnkvaehnnp YH2VMAuPPHazQ57Aj0faH piKb9zXGDoUGR4WVQxaBR eK7XcfS4dJiFe NAXrZYWgL0UexQLaSRsqO 159EUpdZnO1CYWbtwKiQ8 GmKSDasSmjPfY6u9D6Lw8 DSRSwAD80ADR5 nGU2GN86ZK57V4ZsZzgcl GFibGU+PHRhYmxlIHdpZH RoPScxMDAlJyBzdHlsZT0 bCn4dEITiXMMz lMqeoYAmZnKgm8vgIRDzH SwiEF1uaJzuD3BkxTO0VW Eey0v0Tf11D46xI9CnzOC +XYRjfFU7hSQ1 dD5wGaUmUvP6GXxqQ096B bOcdYChUwlod6zbg1ycyD y0SfU4ZSMgmxZxzVhsMFA 2p4GgLt14U10i IHdpZHRoPSIxNSUiIHZhb Glbic9ifZ9aHv7+PGNvbC A6eQA4bY0uMvEfAuX5WXt zC697HeQbtWUn Yenut3lsu0pztQq7PhTdW FBlyhYxzExvCSS2u1EvCd 49Y8HucOyap0GaIoj2ol4 8rVJkd5E4hWS2 R9MzCJNtkdyecUVkzYypP A7bNSMgbzdbLVRxzL9vGL PxK7u9BnQfGhX9BOqoD4P hddQ6KBCgkKCc IQxoLFI3N20ov5A6FXJaB GZzEFV1sGY9sU5fiXdskr ogbGVmdDsgdmVydGljYWw xKSzfR656CMPl oDnzFBKtrF4kRSIzbNSyc VzpQD2aPJTcneqeZu9AOW ZFUiwgUklDSEFSRCBMPC9 3WD68sDOgs7O4 rBR1T2MtCTNxfibxpllxy IA9BXUtELTigB95sIDjOG mlJc0ap5Y3c740MTMmWQM ueP66Vp0puTps KCZaqHBAlL3knyojd6zif wzeMgYqNNTyMOx3FRd2SW GfyMgkKbChZLB7MoD4BJX 2kBDigD6iaAvc avrnbT1hVft+MDEvMDMvM Ij2QOanjBR+NBYxBMQ7wT vwNVgsSNAxyF0jUSWjF6e 2UqVyNcM4NAbl I1EyTGPafxhyMd91hB1xX aTnExP5WSsjD1VdjlS0ES QkqZXyTPqfPMH7N85xt6X 8VKWtYLEtOJB6 eQR2zO6oqScarzqbkVNzl DsgdmVydGljYWwtYWxpZ2 18GJXlpQivRwA6LNshHFS dMN14AB54sMYg p7J1uCP7G8YkYFAasgsoa mgztXP9ZHMkCOXruZ34rR ZfQVmtWy3hk1I8f984WAK rHPIjsI15Wo2x mDdqHOThlKFUwY4fyvhzt 9ormgffBjPkNMHpRAm6EE z8BFIcjZhkLfBcXLM2BpN 8CBW6zBQvrU3v eUvhiedcpS0hVvl+TWFsZ TwvdGQ+AJFaIHD6vKhhDH yxTSFlkR2vJFRfP9n6LpZ qVoT6IFgtR2Uv ZSZrhezeXz66kU0fEmJsY yL8QZitR4JpdpK3LTFjeL TcHHnqNSP0N04fo0S2DQR fPFLoUFK0gMU5 uQ5miDdxxapmgMYzyEswj bZcsPiuQTuyXIphH750YZ RvcDsnPkFtYnVsYXRvcnk sM6ByQOXRLJue B0SoQ7FrhLrqkSF+PC90c d54P5EiXvkvSpo3WFFuQC S1oEB1cK0wLUElKXdlb4G 2rGP7L3JpegNq fo0cu4gcGZRoABfaK99jv PBuh2W5WMLvjIM4HVAeqY hhOuZklF32Rde+PGNvbGd zu8LpTppmr0te e3dyzSx0LtYkEJPkgnOld DmrQGE7c9EsAj43M17mDU dpZHRoPSIzMCUiIHZhbGl kps8jeR9hNj7+ XBUpmOP3sYR3qV4cEhIaL gX3KWziI684UoUwkAInQq oji8obq3yrgTr0AkAgPLU gdmFsaWduPSJ0 s5XxDv25F2EbsCoar3WuE qh5ty63pLFbk6M0cEL8F4 BhZGRpbmctbGVmdDogMC4 yMDBpbjtwYWRk qU0kUYBbT3v3JlNqDtG7W JvcM4AqgzF8TFKixDXvEQ KhqUYJbF8zlvfcu0izpqc gIzAwMDAwMDt0 FTb1SDVscDyuFwZfUZQ6F jK4OTB6mVAodM7miBxbmg adiQ5eQdb+PQm1v7qmcWL kCK4ozOJ0DZ87 OM35mNIos5C5xDP3Q4OyM DMubtxqcjdwvAG8CHXyWS XuyU27Ba8ktBzuGy0qBLY bSHW4RFJrhGVo E9CvhR8yPcEjLOEqMPRdV 1CoyJNqGSndE899FWleKp H6KZYvboKqG9VaGWVilNe lIbO0z9G7He8G IV88GR68FY70rOPch6K2i WA5I1SaHEGznjrtpadzeF R1FASrTZNhsD17Db2cfUy rEb4cLVCbVAX5 WVPwiIEgB2ZayT4iYjKjU HRhODYyR5HrbKYjHUctU2 78TUwoGdZ9IZFdoqJvC3A sLWFsaWduOiB0 r6I9Tw7ACb85VJ10KP62s SSiy7B9oAH4W9CkCIAqkl uciagarTC6WZYkYAIdoP2 8Ia2wxPmxVs2v WDJfJSC9PWTzoOKoN3Pld Z0vCiZpIJOtZJDlY4JjgV HcBYhvU950TXkrFzD6ZTT bnlRpR3TtLNBo bCpfLrR8u1T2Im5DGLxfh ob6A9IsGbibbZP+PC90YW CxDP50aAVvbAOji7hgqNd 6PbHjAKQmZOV0 eWxl (more content not included)... Normal [facility] Progress Note-Physicianon Progress Note-Physician Patient: BRADEN RODRIGUEZ Age: 67 years Sex: Male : 1955 Associated Diagnoses: None Author: Rich Abreu MD Postoperative Information Postoperative disposition: Postoperative disposition: To PACU. Optimetrix number: Optimetrix number [id number]. Anesthetic utilized: General. Special techniques: Warming device. Health Status Problem list: All Problems BMI 26.0-26.9,adult / SNOMED CT 7830187103 / Confirmed Diverticulosis / SNOMED CT 7600463322 / Confirmed Epigastric pain / SNOMED CT 187690923 / Confirmed Hernia, epigastric / SNOMED CT 284131960 / Confirmed Hypertension / SNOMED CT 6401867188 / Confirmed Incarcerated epigastric hernia / SNOMED CT 898933041 / Confirmed Inflamed skin tag / SNOMED CT 980482089 / Confirmed Internal hemorrhoid / SNOMED CT 732637203 / Confirmed Intradermal nevus / SNOMED CT 729488518 / Confirmed Lumbar radiculopathy / SNOMED CT 330682605 / Confirmed Lumbar spondylosis / SNOMED CT 756938802 / Confirmed Neoplasm of uncertain behavior of skin / SNOMED CT 847647855 / Confirmed Screening for malignant neoplasm of colon / SNOMED CT 224980287 / Confirmed Seborrheic keratosis / SNOMED CT 7956911566 / Confirmed Seborrheic keratosis, inflamed / SNOMED CT 7045961977 / Confirmed 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 Normal [facility] Comment on above: Result Comment: Elec tronically Signed By: Brady JERNIGAN, Rich Hernandez\.br\Date and Time Signed: 05/01/22 14:10 EST Consent for Anesthesiaon Consent for Anesthesia [id number]# 1.00CD:127 [facility] Discharge Instructionson Discharge Instructions [id number]# 1.00CD:127 [facility] IntraOperative Documentson 0 04-30-2022 IntraOperative Documents [id number]# 1.00CD:127 [facility] Main OR Intraoperative Recor don 04-30-2022 Main OR Intraoperative Record IntraOp Document Type FT Summary Primary Physician: VAMSI JERNIGAN, Camryn Rodriguez Finalized Date/Time: 04/30/22 14:38:14 Pt. Name: BRADEN RODRIGUEZ/Sex: 1955 Male Med Rec #: [id number] Physician: VAMSI JERNIGAN, Camryn Rodriguez Financial #: [id number] Pt. Type: A Room/Bed: [place] [address] Admit/Disch: 04/29/22 06:06:35 - 04/29/22 11:30:00 Institution: Case Times FT Entry 1 Patient Times In Room 04/29/22 08:43:00 Out Room 04/29/22 09:34:00 Procedure Times Start 04/29/22 08:58:00 Stop 04/29/22 09:32:00 Anesthesia Times Start 04/29/22 08:43:00 Stop 04/29/22 09:34:00 Last Modified By: Lelia GOMEZ, June Moncada 04/29/22 09:34:44 General Comments: 04/30/22 Chart opened to review and send charges LRoth CSFA Case Attendance FT Entry 1 Entry 2 Entry 3 Case Attendee Robert WAITE, Francis AGUSTIN MD, Camryn Mccann RN, Eugenia Peña Role Performed RULES EXAMINER Surgeon - Primary BALANCE RECESSER Time In 04/29/22 08:43:00 04/29/22 08:43:00 04/29/22 08:43:00 Time Out 04/29/22 09:34:00 04/29/22 09:34:00 04/29/22 09:34:00 Procedure HERNIA REPAIR VENTRAL HERNIA REPAIR VENTRAL HERNIA REPAIR VENTRAL ADULT(.) ADULT(.) ADULT(.) Comments Dr. Mendez supervising Last Modified By: Lelia GOMEZ, June Rowell RN, June Pinto RN 04/29/22 09:34:47 04/29/22 09:34:47 04/29/22 09:34:47 Entry 4 Entry 5 Entry 6 Case Attendee Lelia GOMEZ, June Alan RN, Zhang Braun Role Performed Material Manager - Primary Material Manager - Primary Scrub - Primary Time In [...] REPAIR Primary Procedure Yes Primary Surgeon Camryn AGUSTIN MD Start 04/29/22 08:58:00 Stop 04/29/22 09:32:00 [...] and tissue Entry 1 Skin Integrity Intact, [place], Warm, and Skin Abnormality No Dry, Other/See Comments Outcomes Met? Y (more content not included)... Normal [facility] Preoperative Documentson Preoperative Documents [id number]# 1.00CD:127 Normal [facility] Consent for Treatmenton 04-11 Consent for Treatment [id number]#1 .00CD:127 Normal [facility] Inpatient Patient Summaryon 04-29-2022 Inpatient Patient Summary [place] [id number] [facility] Clinical Discharge Instructions PERSON INFORMATION Name: BRADEN RODRIGUEZ [facility]#:[id number] PHYSICIANS Admitting Physician: Camryn AGUSTIN MD Attending Physician: Camryn AGUSTIN MD PCP: Ant JERNIGAN, Ester Discharge Diagnosis: Incarcerated incisional hernia; Unspecified abdominal pain Comment: PATIENT EDUCATION INFORMATION Instructions: Laparoscopic Ventral Hernia Repair, Care After; Post Op Patient Instructions - FT (CUSTOM) Medication Leaflets: Follow up: With: Address: When: Camryn AGUSTIN [facility] [address], [address], [facility] [address] [place] [address] Business (1) Within 7 to 10 days MEDICATION LIST New Medications [id number], [address], [place] [id number], [phone] acetaminophen-oxycodo ne (acetaminophen-oxycod one 325 mg-5 mg [...] Capsules By Mouth every day. Comment: Normal [facility] Main OR PACU I Recordon 04-11 Main OR PACU I Record PACU Phase I Docum ent Type FT Summary Primary Physician: Camryn AGUSTIN MD Finalized Date/Time: 04/29/22 10:13:04 Pt. Name: BRADEN RODRIGUEZ/Sex: 1955 Male Med Rec #: [id number] Physician: Camryn AGUSTIN MD Financial #: [id number] Pt. Type: A Room/Bed: AS04/ Admit/Disch: 04/29/22 06:06:35 - Institution: Case Times [...] By: Lovely Johnson RN 04/29/22 10:13 Normal [facility] Main OR Preoperative Recordo n 04-29-2022 Main OR Preoperative Record PreOp Document Type FT Summary Primary Physician: Camryn AGUSTIN MD Finalized Date/Time: 04/29/22 08:59:43 Pt. Name: BRADEN RODRIGUEZ D.O.B./Sex: 1955 Male Med Rec #: [id number] Physician: Camryn AGUSTIN MD Financial #: [id number] Pt. Type: A Room/Bed: [place] [address] Admit/Disch: 04/29/22 06:06:35 - Institution: Case Times [...] By: June Rowell RN 04/29/22 08:59 Normal [facility] Monitor Recordon 04-29-2022 Monitor Record [id number]# 1.00CD:127 Normal [facility] Operative Reporton 3 Operative Report SURGERY DATE: 04/29/2022 PREOPERATIVE DIAGNOSIS: [...] to Recovery Room in good condition. Camryn Agustin M.D. FACS lr Dictated: 04/29/2022 [id number] Transcribed: 04/29/2022 cc:Ester Cain M.D. [facility] Comment on above: Result Comment: Elec tronically Signed By: Camryn AGUSTIN MD\.br\Date and Time Signed: 04/29/22 10:49 EST Outpatient Surgery Discharge Instructionon 04-29-2022 Outpatient Surgery Discharge Instruction [place] [id number] Patient Discharge Instructions PERSON INFORMATION Name: MICHAELBRADEN Date of : 1955 Current Date: 04/29/2022 10:19:14 PHYSICIANS Admitting Physician: Camryn AGUSTIN MD Discharge Diagnosis: Incarcerated incisional hernia; Unspecified abdominal pain BRADEN RODRIGUEZ has been given the following list of [...] THE NEAREST EMERGENCY ROOM OR CALL 911 MICHAEL Vernon RICHARD L, have received the attached patient education materials/instruction s and have verbalized understanding: May we do a follow up call? Yes No I was present when discharge instructions were given Patient Signature Date Clinican/Nurse Signature Date Follow up: With: Address: When: Camryn [address], [address], [place] [id number] Business (1) Within 7 to 10 days [...] to serve you. Thank you for choosing [facility] HERE ARE THE MEDICATION CHANGES THAT OCCURRED DURING YOUR HOSPITAL STAY New Medications [id number], [address], [place] [id number], [phone] acetaminophen-oxycodo ne (acetaminophen-oxycod one 325 mg-5 mg [...] and water are not available, use hand allocation analyst. ? Change your dressing as told by [...] a h (more content not included)... Normal [facility] Patient Education - Texton 0 04-29-2022 [...] and water are not available, use hand allocation analyst. ? Change your dressing as told by [...] care provider approves. General instructions ? Take cayj-mtv-dlbjksd and prescription medicines only as told by your health care provider. ? To prevent or treat constipation while you are taking prescription pain medicine, your health care provider may recommend that you: ? Take rbbr-kdu-hmzsegt or prescription medicines. ? Eat foods that [...] 02/10/2013 Document Revised: 02/06/2018 Document Reviewed: 10/16/2016 [employer] Patient Education ? 2019 [employer] Paramjit [facility] Progress Note-Physicianon Progress Note-Physician Patient: BRADEN RODRIGUEZ Age: 67 years Sex: Male : 1955 [...] All Problems BMI 26.0-26.9,adult / SNOMED CT 4050344523 / Confirmed Diverticulosis / SNOMED CT 2021937320 / Confirmed Epigastric pain / SNOMED CT 637513339 / Confirmed Hernia, epigastric / SNOMED CT 737023360 / Confirmed Hypertension / SNOMED CT 9004001920 / Confirmed Incarcerated epigastric hernia / SNOMED CT 102360695 / Confirmed Inflamed skin tag / SNOMED CT 073718046 / Confirmed Internal hemorrhoid / SNOMED CT 386524734 / Confirmed Intradermal nevus / SNOMED CT 419467921 / Confirmed Lumbar radiculopathy / SNOMED CT 005330532 / Confirmed Lumbar spondylosis / SNOMED CT 596219361 / Confirmed Neoplasm of uncertain behavior of skin / SNOMED CT 430373749 / Confirmed Screening for malignant neoplasm of colon / SNOMED CT 961289449 / Confirmed Seborrheic keratosis / SNOMED CT 1619185345 / Confirmed Seborrheic keratosis, inflamed / SNOMED CT 2004893953 / Confirmed 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 Normal [facility] Comment on above: Result Comment: Elec tronically Signed By: Brady JERNIGAN, Rich Aviles.br\Date and Time Signed: 04/29/22 06:29 EST Formson 04-26-2022 Forms [id number]#1 .00CD:127 [facility] Consent for Procedure/Surger yon 04-24-2022 Consent for Procedure/Surgery [id number]#1 .00CD:127 [facility] Ambulatory Visit Summaryon 0 04-23-2022 Ambulatory Visit Summary BRADEN RODRIGUEZ :1955 Visit Date:04/19/2022 Ambulatory Visit Instructions Your Diagnosis Incarcerated epigastric hernia Your Care Team Attending Physician - VAMSI JERNIGAN, Camryn Rodriguez Primary Care Physician - Ant JERNIGAN, Ester This Is Your Medications List [...] Follow-Up Appointments Friday 8:30 AM EST Where: [facility] Medications What How Much When [...] SVT (supraventricular tachycardia) Ventricular premature contractions Normal [facility] BUNon 04-22-2022 Urea nitrogen [Mass/Vol] 25 mg/dL High 5-21 [facility] Comment on above: Performed By: #### 2 844682, 4835092, 6633114, 6419216, 57522439, 1117932 ####[facility] [address] [place] [address] CBC w/Indiceson 04-22-2022 Erythrocyte distribution width (RBC) [Ratio] 12.2 % Normal 10.9-14.2 [facility] Comment on above: Performed By: #### 2 156593, 1128197, 5202992, 0976998, 27503336, 2568173 ####[facility] [address] [place] [address] Hematocrit (Bld) [Volume fraction] 44.4 % Normal 37.7-49.0 [facility] Comment on above: Performed By: #### 2 450811, 6048769, 1048928, 3696343, 22787004, 2561958 ####[facility] [address] [place] [address] Hemoglobin (Bld) [Mass/Vol] 14.8 g/dL Normal 13.5-17.5 [facility] Comment on above: Performed By: #### 2 965763, 6655651, 0212631, 6107539, 10811521, 6283992 ####[facility] [address] [place] [address] MCH (RBC) [Entitic mass] 31.6 pg Normal 27.0-34.0 [facility] Comment on above: Performed By: #### 2 398235, 7847311, 1564834, 5068160, 66664266, 0405721 ####[facility] [address] [place] [address] MCHC (RBC) [Mass/Vol] 33.3 g/dL Normal 31.4-36.0 [facility] Comment on above: Performed By: #### 2 888058, 7483097, 8285203, 0994532, 53433724, 1922769 ####[place] [address] [place] [address] MCV (RBC) [Entitic vol] 95.1 fL Normal 80.0-100.0 [facility] Comment on above: Performed By: #### 2 089184, 6094096, 4106635, 2365981, 05072410, 0769137 ####[address] [address] Platelet mean volume (Bld) [Entitic vol] 8.4 fL Normal 6.4-10.8 [facility] Comment on above: Performed By: #### 2 106945, 3476780, 9016401, 6857531, 31427415, 9592883 ####[address] [address] Platelets (Bld) [#/Vol] 286.0 E9/L Normal 150.0-500.0 [facility] Comment on above: Performed By: #### 2 745665, 3654245, 4308222, 2241587, 91164125, 1626597 ####[address] [address] RBC (Bld) [#/Vol] 4.7 E12/L Normal 4.3-5.9 [facility] Comment on above: Performed By: #### 2 052812, 3997628, 9735784, 8461846, 70983037, 2981704 ####[place] [address] [place] [address] WBC corrected for nucl RBC Auto (Bld) [#/Vol] 9.2 E9/L Normal 4.0-11.0 [facility] Comment on above: Performed By: #### 2 144912, 3192370, 4566198, 9590622, 75736223, 1036769 ####[address] [address] Consent for Procedure/Surger yon 04-22-2022 Consent for Procedure/Surgery [id number]#1 .00CD:127 Normal [facility] Consent for Treatmenton 04-10 Consent for Treatment [id number]#1 .00CD:127 Normal [facility] Creatinineon 04-22-2022 Creatinine [Mass/Vol] 1.0 mg/dL Normal 0.5-1.3 [facility] Comment on above: Performed By: #### 2 055383, 7435277, 2612312, 0014082, 74355957, 0726834 ####[facility] [address] [place] [address] Glucoseon 04-22-2022 Glucose [Mass/Vol] 114 mg/dL Normal 55-199 [facility] Comment on above: Performed By: #### 2 112804, 9637814, 3744871, 8926305, 02167781, 9822398 ####[facility] [address] [address] Lyteson 04-22-2022 Anion gap [Moles/Vol] 12 mmol/L Normal 6-16 [facility] Comment on above: Performed By: #### 2 910877, 3169394, 1240714, 2375637, 15417970, 2793744 ####[facility] [address] [place] [address] Chloride [Moles/Vol] 103 mmol/L Normal 101-111 [facility] Comment on above: Performed By: #### 2 756704, 1227076, 7290217, 1450999, 16144792, 8006791 ####[facility] [address] [place] [address] CO2 [Moles/Vol] 27 mmol/L Normal 21-31 [facility] Comment on above: Performed By: #### 2 191461, 0035358, 3303182, 1654961, 93309561, 7602621 ####[facility] [address] [place] [address] Potassium [Moles/Vol] 3.6 mmol/L Normal 3.5-5.3 [facility] Comment on above: Performed By: #### 2 249067, 6864850, 7900554, 3432429, 22139549, 6650845 ####[facility] [address] [place] [address] Sodium [Moles/Vol] 138 mmol/L Normal 135-145 [facility] Comment on above: Performed By: #### 2 830010, 7377921, 6363428, 3816362, 67378330, 2364595 ####[facility] [address] [place] [address] XR Chest 2 Viewson 3 XR Chest [...] Samson MD, V. Transcribed by: YONAS Technologist: Normal [facility] eGFRon 04-22-2022 GFR/1.73 sq M.predicted among blacks MDRD (S/P/Bld) [Vol rate/Area] mL/min/{1.73_m2} Normal >=59 [facility] Comment on above: Order Comment: Order added by Discern Expert. Result Comment: eGFR is race adjusted. AA=. Performed By: #### 2 916943, 2881687, 9264664, 3999585, 50807223, 9709929 ####[facility] [address] [place] [address] GFR/1.73 sq M.predicted among non-blacks MDRD (S/P/Bld) [Vol rate/Area] mL/min/{1.73_m2} Normal >=59 [facility] Comment on above: Order Comment: Order added by Discern Expert. Result Comment: Post Doc [facility] kidney disease could be indicated at eGFR's of less than 60 mL/min/1.73m2. Kidney failure is indicated at less than 15 mL/min/1.73m2. Performed By: #### 2 434156, 3344783, 6654895, 9503297, 92418745, 0836288 ####[facility] [address] [place] [address] General Surgery Office/Clini c Noteon 04-19-2022 General Surgery Office/Clinic Note Chief Complaint discuss ventral hernia repair HPI Staff Presents to discuss recommended primary epigastric hernia repair. CT completed 2/ with fat filled ventral hernia. Denies change [...] (COV (more content not included)... Normal [facility] Comment on above: Result Comment: Elec tronically Signed By: VAMSI JERNIGAN, Camryn Rodriguez\ronald\Date and Time Signed: 04/19/22 16:[address] [...] by: WILTON NICHOLE Date: 2022-04-12 08:12 Normal [facility] Lab Reportson 04-12-2022 Lab Reports [id number]#1 .00CD:127 Normal [facility] RAD - CT Reporton 04-12-[address] - [address] Report [id number]#1 .00CD:127 Normal [facility] CREATININEon 04-11-2022 Creatinine [Mass/Vol] 0.80 mg/dL Normal 0.70-1.30 [facility] Comment on above: Performed By: #### P [facility], VITAD #### [facility] [address] [place] [address] [address] Max Peck EGFR-AF [place]ER >60 Normal >=60 [facility] Comment on above: Performed By: #### P [facility], VITAD #### [facility] [address] [place] [address] [address] Max Peck EGFR-NON AF [place]ER >60 Normal >=60 [facility] Comment on above: Performed By: #### P [facility], VITAD #### [facility] [address] [place] [address] Dr. Max Peck Ambulatory Visit Summaryon 0 04-10-2022 Ambulatory Visit Summary BRADEN RODRIGUEZ :1955 MRN:[id number] Visit Date:04/03/2022 Ambulatory Visit Instructions Your Diagnosis Hernia, epigastric Epigastric pain, Acute epigastric pain Tests Performed CT Abdomen w/ Contrast -- Results Pending -- Please visit your patient portal for your results or contact your primary care physician. Your Care Team Attending Physician - VAMSI JERNIGAN, Camryn Rodriguez Primary Care Physician - Ester Cain MD This Is Your Medications List Contact [...] SVT (supraventricular tachycardia) Ventricular premature contractions Normal [facility] Facesheeton 04-04-2022 Facesheet [id number]#1 .00CD:127 Normal [facility] ED Note-Physicianon 03-21-19 ED Note-Physician [id number]#1 .00CD:127 Normal [facility] RAD - MISCon 03-18-2022 RAD - MISC [id number]#1 .00CD:127 Normal [facility] XR ABD FLAT UP_PA Kuldip 03-16 [...] EDENILSON KNIGHT Date: 2022-03-16 10:42 Normal [facility] LIPID PROFILEon 03-06-2022 CHOL-HDL RATIO NORM SEE BELOW Normal [facility] Comment on above: Result Comment: 3.3 - 4.4 LOW RISK 4.4 - 7.1 AVERAGE RISK 7.1 - 11.0 MODERATE RISK >11.0 HIGH RISK Performed By: #### P SASC, VITAD #### [facility] [address] [address] [address] Max Peck Cholesterol [Mass/Vol] 163 mg/dL Normal <=200 [facility] Comment on above: Performed By: #### P SASC, VITAD #### [facility] [address], [place] [address] Dr. Max Peck Cholesterol in HDL [Mass/Vol] 50 mg/dL Normal 40-60 [facility] Comment on above: Performed By: #### P SASC, VITAD #### [facility] [address], [place] [address] Dr. Max Peck Cholesterol in LDL [Mass/Vol] 100.0 mg/dL Normal [facility] Comment on above: Performed By: #### P SASC, VITAD #### [facility] [address] [place] [address] Dr. Max Peck Cholesterol.total/Cho lesterol in HDL [Mass ratio] 3.3 {ratio} Normal [facility] Comment on above: Performed By: #### P SASC, VITAD #### [facility] [address] [place] [address] Dr. Max Peck HDL NORMAL > or = 60 mg/dl - LO W CARDIOVASCULAR RISK <40 mg/dl - HIGH CARDIOVASCULAR RISK Normal [facility] Comment on above: Performed By: #### P SASC, VITAD #### [facility] [address] [place] [address] Dr. Max Peck LDL CALC NORMAL SEE BELOW Normal [facility] Comment on above: Result Comment: <100 mg/dl OPTIMAL 100 - 129 mg/dl NEAR OR ABOVE OPTIMAL 130 - 159 mg/dl BORDERLINE HIGH 160 - 189 mg/dl HIGH >190 mg/dl VERY HIGH Performed By: #### P SASC, VITAD #### [facility] [address] [place] [address] Dr. Max Peck Triglyceride [Mass/Vol] 65 mg/dL Normal <=150 [facility] Comment on above: Performed By: #### P SASC, VITAD #### [facility] [address] [place] [address] Dr. Max Peck VLDL CALC 13.0 mg/dL Normal [facility] Comment on above: Performed By: #### P SASC, VITAD #### [facility] [address] [place] [address] Dr. Max Peck PROF 14(COMP METB)on 022 Albumin [Mass/Vol] 3.9 g/dL Normal 3.4-5.0 [facility] Comment on above: Performed By: #### P SASC, VITAD #### [facility] [address] [place] [address] Dr. Max Peck Albumin/Globulin [Mass ratio] 1.3 {ratio} Normal [facility] Comment on above: Performed By: #### P SASC, VITAD #### [facility] [address] [address] [address] Max Peck ALP [Catalytic activity/Vol] 79 U/L Normal 46-116 [facility] Comment on above: Performed By: #### P SASC, VITAD #### [facility] [address] [address] [address] Max Peck ALT [Catalytic activity/Vol] 24 U/L Normal 16-63 [facility] Comment on above: Performed By: #### P SASC, VITAD #### [facility] [address] [address] [address] Max Peck Anion gap [Moles/Vol] 12.3 mmol/L Normal [facility] Comment on above: Performed By: #### P SASC, VITAD #### [facility] [address] [address] [address] Max Peck AST [Catalytic activity/Vol] 25 U/L Normal 15-37 [facility] Comment on above: Performed By: #### P SASC, VITAD #### [facility] [address] [address] [address] Max Peck Bilirubin [Mass/Vol] 1.4 mg/dL Critically high 0.2-1.0 [facility] Comment on above: Performed By: #### P SASC, VITAD #### [facility] [address] [address] [address] Max Peck Calcium [Mass/Vol] 9.1 mg/dL Normal 8.5-10.1 [facility] Comment on above: Performed By: #### P SASC, VITAD #### [facility] [address] [address] [address] Max Peck Chloride [Moles/Vol] 100 mmol/L Normal 98-107 [facility] Comment on above: Performed By: #### P SASC, VITAD #### [facility] [address] [address] [address] Max Peck CO2 [Moles/Vol] 30.7 mmol/L Normal 21.0-32.0 [facility] Comment on above: Performed By: #### P SASC, VITAD #### [facility] [address] [place] [address] Dr. Max Peck Creatinine [Mass/Vol] 0.86 mg/dL Normal 0.70-1.30 [facility] Comment on above: Performed By: #### P SASC, VITAD #### [facility] [address] [place] [address] Dr. Max Peck EGFR-AF [place]LANDER 60 mL/min/1.73m2 Normal >=60 [facility] Comment on above: Performed By: #### P SASC, VITAD #### [facility] [address] [place] [address] Dr. Max Peck EGFR-NON AF [place]ER 60 mL/min/1.73m2 Normal >=60 [facility] Comment on above: Performed By: #### P SASC, VITAD #### [facility] [address] [place] [address] Dr. Max Peck Globulin (S) [Mass/Vol] 3.1 g/dL Normal [facility] Comment on above: Performed By: #### P SASC, VITAD #### [facility] [address] [place] [address] Dr. Max Peck Glucose [Mass/Vol] 102 mg/dL Normal 74-106 [facility] Comment on above: Performed By: #### P SASC, VITAD #### [facility] [address] [place] [address] Dr. Max Peck Potassium [Moles/Vol] 4.0 mmol/L Normal 3.5-5.1 [facility] Comment on above: Performed By: #### P SASC, VITAD #### [facility] [address] [place] [address] Dr. Max Peck Protein [Mass/Vol] 7.0 g/dL Normal 6.4-8.2 [facility] Comment on above: Performed By: #### P SASC, VITAD #### [facility] [address] [address] [address] Max Peck Sodium [Moles/Vol] 139 mmol/L Normal 136-145 [facility] Comment on above: Performed By: #### P SASC, VITAD #### [facility] [address] [place] [address] Dr. Max Peck Urea nitrogen [Mass/Vol] 10.0 mg/dL Normal 7.0-18.0 [facility] Comment on above: Performed By: #### P SASC, VITAD #### [facility] [address] [address] [address] Max Peck Urea nitrogen/Creatinine [Mass ratio] 11.6 mg/mg Normal [facility] Comment on above: Performed By: #### P BILLYC, VITAD #### [facility] [address] [place] [address] Dr. Max Peck XR CSPINE MIN 4 [...] WILTON NICHOLE Date: 2022-01-19 07:14 Normal [facility] HEPATITIS PANEL, ACUTEon HBsAg Screen Negative Normal Negative [facility] Comment on above: Performed By: #### P BILLYC, VITAD #### [facility] [address] [place] [address] Dr. Max Peck HCV AB <0.1 Normal 0.0-0.9 [facility] Comment on above: Performed By: #### P SASC, VITAD #### [facility] [address] [address] [address] Max Peck Hep A Ab, IgM Negative Normal Negative [facility] Comment on above: Performed By: #### P SASC, VITAD #### [facility] [address] [address] [address] Max Peck Hep B Core Ab, IgM Negative Normal Negative [facility] Comment on above: Performed By: #### P SASC, VITAD #### [facility] [id number] Max Peck Interpretation: Comment Normal [facility] Comment on above: Result Comment: Nega tive Not infected with HCV, unless recent infection is suspected or other evidence exists to indicate HCV infection. Performed By: #### P SASC, VITAD #### [facility] [address] [place] [address] Dr. Max Peck INSULINon 12-29-2021 Insulin 15.1 uIU/mL Normal 2.6-24.9 [facility] Comment on above: Performed By: #### P SASC, VITAD #### [facility] [address] [address] [address] Max Peck TESTOSTERONE, TOTALon 2021 Testosterone [Mass/Vol] 766 ng/dL Normal 264-916 [facility] Comment on above: Result Comment: Adul t male reference interval is based on a population of healthy nonobese males (BMI <30) between 19 and 39 years old. Teddy et.al. JCEM 2017,102;1715-6873. PMID: [id number]. Performed By: #### P SASC, VITAD #### [facility] [address] [address] [address] Max Peck CBC AUTO DIFFon 12-28-2021 BASO # 0.0 103/ul Normal 0.0-0.1 [facility] Comment on above: Performed By: #### P SASC, VITAD #### [facility] [address] [address] [address] Max Peck Basophils/100 WBC (Bld) 0.4 % Normal 0.2-2.0 [facility] Comment on above: Performed By: #### P SASC, VITAD #### [facility] [address] [place] [address] Dr. Max Peck EO # 0.0 103/ul Normal 0.0-0.7 [facility] Comment on above: Performed By: #### P SASC, VITAD #### [facility] [address] [place] [address] Dr. Max Peck Eosinophils/100 WBC (Bld) 0.3 % Critically low 0.9-7.0 [facility] Comment on above: Performed By: #### P SASC, VITAD #### [facility] [address] [place] [address] Dr. Max Peck Erythrocyte distribution width (RBC) [Ratio] 12.5 % Normal 11.0-15.0 [facility] Comment on above: Performed By: #### P SASC, VITAD #### [facility] [address] [place] [address] Dr. Max Peck Hematocrit (Bld) [Volume fraction] 41.5 % Critically low 42.0-54.0 [facility] Comment on above: Performed By: #### P SASC, VITAD #### [facility] [address] [place] [address] Dr. Max Peck Hemoglobin (Bld) [Mass/Vol] 14.0 g/dL Normal 14.0-18.0 [facility] Comment on above: Performed By: #### P SASC, VITAD #### [facility] [address] [place] [address] Dr. Max Peck IG # 0.09 10e3/ul Critically high 0.00-0.03 [facility] Comment on above: Performed By: #### P SASC, VITAD #### [facility] [address] [place] [address] Dr. Max Peck IG % 0.9 % Critically high 0.0-0.[address] [facility] Comment on above: Performed By: #### P SASC, VITAD #### [facility] [address] [address] [address] Max Peck LYMPH # 2.6 103/ul Normal 1.2-3.8 [facility] Comment on above: Performed By: #### P SASC, VITAD #### [facility] [address] [address] [address] Max Peck Lymphocytes/100 WBC (Bld) 25.0 % Normal 20.5-60.0 [facility] Comment on above: Performed By: #### P SASC, VITAD #### [facility] [address] [place] [address] Dr. Max Peck MANUAL DIFF REQ NO Normal [facility] Comment on above: Performed By: #### P SASC, VITAD #### [facility] [address] [place] [address] Dr. Mxa Peck MCH (RBC) [Entitic mass] 32.6 pg Normal 25.9-34.0 [facility] Comment on above: Performed By: #### P SASC, VITAD #### [facility] [address] [place] [address] Dr. Max Peck MCHC (RBC) [Mass/Vol] 33.7 g/dL Normal 29.9-35.2 [facility] Comment on above: Performed By: #### P SASC, VITAD #### [facility] [address] [place] [address] Dr. Max Peck MCV (RBC) [Entitic vol] 96.7 fL Critically high 80.0-94.0 [facility] Comment on above: Performed By: #### P SASC, VITAD #### [facility] [address] [place] [address] Dr. Max Peck MONO # 1.2 103/ul Critically high 0.3-0.8 [facility] Comment on above: Performed By: #### P SASC, VITAD #### [facility] [address] [place] [address] Dr. Max Peck Monocytes/100 WBC (Bld) 11.1 % Normal 1.7-12.0 [facility] Comment on above: Performed By: #### P SASC, VITAD #### [facility] [address] [place] [address] Dr. Max Peck NEUT # 6.4 103/ul Normal 1.4-6.5 [facility] Comment on above: Performed By: #### P SASC, VITAD #### [facility] [address] [place] [address] Dr. Max Peck Neutrophils/100 WBC (Bld) 62.3 % Normal 43.0-75.0 [facility] Comment on above: Performed By: #### P SASC, VITAD #### [facility] [address] [place] [address] Dr. Max Peck Platelet mean volume (Bld) [Entitic vol] 9.6 fL Normal 9.5-13.5 [facility] Comment on above: Performed By: #### P SASC, VITAD #### [facility] [address] [place] [address] Dr. Max Peck PLT 323 103/ul Normal 150-450 [facility] Comment on above: Performed By: #### P SASC, VITAD #### [facility] [address] [place] [address] Dr. Max Peck RBC 4.29 106/ul Critically low 4.70-6.[address] [facility] Comment on above: Performed By: #### P SASC, VITAD #### [facility] [address] [place] [address] Dr. Max Peck WBC 10.3 103/ul Normal 4.0-11.0 [facility] Comment on above: Performed By: #### P SASC, VITAD #### [facility] [address] [place] [address] Dr. Max Peck FREE THYROXINE INDEX T7on FTI 2.41 Normal 1.30-4.50 [facility] Comment on above: Performed By: #### T SH, URIC, T7, LIPID, CMP #### [facility] [address] [place] [address] Dr. Max Peck T3U 36.0 % Normal 33.0-40.0 [facility] Comment on above: Performed By: #### T SH, URIC, T7, LIPID, CMP #### [facility] [address] [address] [address] Max Peck T4 [Mass/Vol] 6.70 ug/dL Normal 4.50-12.10 [facility] Comment on above: Performed By: #### T SH, URIC, T7, LIPID, CMP #### [facility] [address] [address] [address] Max Peck GLYCOHEMOGLOBIN A1Con 2021 ADA RECOMMENDATION SEE BELOW Normal [facility] Comment on above: Result Comment: ADA RECOMMENDED LIMIT 4.0 - 6.0 ADA THERAPEUTIC TARGET < 7.0 ACTION SUGGESTED > 7.0 Performed By: #### P SASC, VITAD #### [facility] [address] [place] [address] Dr. Max Peck Glucose [Mass/Vol] 97 mg/dL Normal [facility] Comment on above: Performed By: #### P SASC, VITAD #### [facility] [address] [address] [address] Max Peck HbA1c (Bld) [Mass fraction] 5.0 % Normal 4.5-6.2 [facility] Comment on above: Performed By: #### P SASC, VITAD #### [facility] [address] [place] [address] Dr. Max Peck LIPID PROFILEon 12-28-2021 CHOL-HDL RATIO NORM SEE BELOW Normal [facility] Comment on above: Result Comment: 3.3 - 4.4 LOW RISK 4.4 - 7.1 AVERAGE RISK 7.1 - 11.0 MODERATE RISK >11.0 HIGH RISK Performed By: #### T SH, URIC, T7, LIPID, CMP #### [facility] [address] [address] [address] Max Peck Cholesterol [Mass/Vol] 221 mg/dL Critically high <=200 [facility] Comment on above: Performed By: #### T SH, URIC, T7, LIPID, CMP #### [facility] [address] [address] [address] Max Peck Cholesterol in HDL [Mass/Vol] 41 mg/dL Normal 40-60 [facility] Comment on above: Performed By: #### T SH, URIC, T7, LIPID, CMP #### [facility] [address] [address] [address] Max Peck Cholesterol in LDL [Mass/Vol] 157.2 mg/dL Normal [facility] Comment on above: Performed By: #### T SH, URIC, T7, LIPID, CMP #### [facility] [address] [address] [address] Max Peck Cholesterol.total/Cho lesterol in HDL [Mass ratio] 5.4 {ratio} Normal [facility] Comment on above: Performed By: #### T SH, URIC, T7, LIPID, CMP #### [facility] [address] [address] [address] Max Peck HDL NORMAL > or = 60 mg/dl - LO W CARDIOVASCULAR RISK <40 mg/dl - HIGH CARDIOVASCULAR RISK Normal [facility] Comment on above: Performed By: #### T SH, URIC, T7, LIPID, CMP #### [facility] [address] [address] [address] Max Peck LDL CALC NORMAL SEE BELOW Normal [facility] Comment on above: Result Comment: <100 mg/dl OPTIMAL 100 - 129 mg/dl NEAR OR ABOVE OPTIMAL 130 - 159 mg/dl BORDERLINE HIGH 160 - 189 mg/dl HIGH >190 mg/dl VERY HIGH Performed By: #### T SH, URIC, T7, LIPID, CMP #### [facility] [address] [address] [address] Max Peck Triglyceride [Mass/Vol] 114 mg/dL Normal <=150 [facility] Comment on above: Performed By: #### T SH, URIC, T7, LIPID, CMP #### [facility] [address] [address] [address] Max Peck VLDL CALC 22.8 mg/dL Normal [facility] Comment on above: Performed By: #### T SH, URIC, T7, LIPID, CMP #### [facility] [address] [place] [address] Dr. Max Peck PROF 14(COMP METB)on 022 Albumin [Mass/Vol] 3.9 g/dL Normal 3.4-5.0 [facility] Comment on above: Performed By: #### T SH, URIC, T7, LIPID, CMP #### [facility] [address] [place] [address] Dr. Max Peck Albumin/Globulin [Mass ratio] 1.3 {ratio} Normal [facility] Comment on above: Performed By: #### T SH, URIC, T7, LIPID, CMP #### [facility] [address] [place] [address] Dr. Max Peck ALP [Catalytic activity/Vol] 63 U/L Normal 46-116 [facility] Comment on above: Performed By: #### T SH, URIC, T7, LIPID, CMP #### [facility] [address] [place] [address] Dr. Max Peck ALT [Catalytic activity/Vol] 75 U/L Critically high 16-63 [facility] Comment on above: Performed By: #### T SH, URIC, T7, LIPID, CMP #### [facility] [address] [place] [address] Dr. Max Peck Anion gap [Moles/Vol] 8.8 mmol/L Normal [facility] Comment on above: Performed By: #### T SH, URIC, T7, LIPID, CMP #### [facility] [address] [place] [address] Dr. Max Peck AST [Catalytic activity/Vol] 41 U/L Critically high 15-37 [facility] Comment on above: Performed By: #### T SH, URIC, T7, LIPID, CMP #### [facility] [address] [place] [address] Dr. Max Peck Bilirubin [Mass/Vol] 0.8 mg/dL Normal 0.2-1.0 [facility] Comment on above: Performed By: #### T SH, URIC, T7, LIPID, CMP #### [facility] [address] [place] [address] Dr. Max Peck Calcium [Mass/Vol] 9.1 mg/dL Normal 8.5-10.1 [facility] Comment on above: Performed By: #### T SH, URIC, T7, LIPID, CMP #### [facility] [address] [place] [address] Dr. Max Peck Chloride [Moles/Vol] 102 mmol/L Normal 98-107 [facility] Comment on above: Performed By: #### T SH, URIC, T7, LIPID, CMP #### [facility] [address] [place] [address] Dr. Max Peck CO2 [Moles/Vol] 33.8 mmol/L Critically high 21.0-32.0 [facility] Comment on above: Performed By: #### T SH, URIC, T7, LIPID, CMP #### [facility] [address] [place] [address] Dr. Max Peck Creatinine [Mass/Vol] 0.80 mg/dL Normal 0.70-1.30 [facility] Comment on above: Performed By: #### T SH, URIC, T7, LIPID, CMP #### [facility] [address] [place] [address] Dr. Max Peck EGFR-AF [place]OOK ISLANDER >60 Normal >=60 [facility] Comment on above: Performed By: #### T SH, URIC, T7, LIPID, CMP #### [facility] [address] [place] [address] Dr. Max Peck EGFR-NON AF [place] ISLANDER >60 Normal >=60 [facility] Comment on above: Performed By: #### T SH, URIC, T7, LIPID, CMP #### [facility] [address] [place] [address] Dr. Max Peck Globulin (S) [Mass/Vol] 2.9 g/dL Normal [facility] Comment on above: Performed By: #### T SH, URIC, T7, LIPID, CMP #### [facility] [address] [place] [address] Dr. Max Peck Glucose [Mass/Vol] 99 mg/dL Normal 74-106 [facility] Comment on above: Performed By: #### T SH, URIC, T7, LIPID, CMP #### [facility] [address] [place] [address] Dr. Max Peck Potassium [Moles/Vol] 3.6 mmol/L Normal 3.5-5.1 [facility] Comment on above: Performed By: #### T SH, URIC, T7, LIPID, CMP #### [facility] [address] [place] [address] Dr. Max Peck Protein [Mass/Vol] 6.8 g/dL Normal 6.4-8.2 [facility] Comment on above: Performed By: #### T SH, URIC, T7, LIPID, CMP #### [facility] [address] [place] [address] Dr. Max Peck Sodium [Moles/Vol] 141 mmol/L Normal 136-145 [facility] Comment on above: Performed By: #### T SH, URIC, T7, LIPID, CMP #### [facility] [address] [place] [address] Dr. Max Peck Urea nitrogen [Mass/Vol] 16.0 mg/dL Normal 7.0-18.0 [facility] Comment on above: Performed By: #### T SH, URIC, T7, LIPID, CMP #### [facility] [address] [place] [address] Dr. Max Peck Urea nitrogen/Creatinine [Mass ratio] 20.0 mg/mg Normal [facility] Comment on above: Performed By: #### T SH, URIC, T7, LIPID, CMP #### [facility] [address] [place] [address] Dr. Max Peck TSHon 12-28-2021 TSH 1.544 uIU/mL Normal 0.358-3.740 [facility] Comment on above: Performed By: #### T SH, URIC, T7, LIPID, CMP #### [facility] [address] [place] [address] Dr. Max Peck URIC ACID SERUMon 12-28-2021 Urate [Mass/Vol] 5.4 mg/dL Normal 3.5-7.2 [facility] Comment on above: Performed By: #### T SH, URIC, T7, LIPID, CMP #### [facility] [address] [place] [address] Dr. Max Peck VITAMIN D 25 OHon 12-28-2021 VIT D 25-OH 51.2 ng/mL Normal [facility] Comment on above: Performed By: #### P SASC, VITAD #### [facility] [address] [address] [address] Max Peck VIT D RANGES SEE BELOW Normal [facility] Comment on above: Result Comment: <20 ng/mL Vit D deficient 20 - <30 ng/mL Vit D insufficient 30 - 100 ng/mL Vit D sufficient >100 ng/mL Potential Toxicity Performed By: #### P SASC, VITAD #### [facility] [address] [place] [address] Dr. Max Peck Cardiovascular Lab Reporton 09-01-2020 Cardiovascular Lab Report [facility] Patient Name: Braden Rodriguez [facility] MR #: [id number] Physician: Domenic Kohler MD Department of Service Date: 07/31/2020 Medicine Birthdate: 1955 Division of Room #: [facility] Adult Cardi[facility] Services [address] [place] [address] Cardiovascular Laboratory Report The patient is a [...] have symptomatic PVCs. Electronically Signed by: Domenic Kohler MD 09/01/2020 11:57 A Domenic Kohler MD Date Dict: 09/01/2020/10:26 Antwan/Domenic Kohler MD Date Trans: 09/01/2020 10:51 A/sergio [id number] cc: Ester Cain M.D. [address], [facility] [place] [id number] [facility] LUMBAR SPINE 2 OR 3 VIEWSon 05-19-2019 LUMBAR SPINE 2 OR 3 VIEWS STUDY: LUMBAR SPINE 2 OR 3 VIEWS; 05/19/2019 9:49 am INDICATION: PAIN. COMPARISON: None. ACCESSION NUMBER(S): [id number] ORDERING CLINICIAN: Edgar Fairchild FINDINGS: No fracture or subluxation of the lumbar spine. L3-L5 laminectomy defects. Moderate to severe multilevel degenerative disc height loss with endplate sclerosis and osteophyte formation. Multilevel facet arthropathy. Moderate dextroscoliosis centered at L2. IMPRESSION: Severe degenerative changes of the lumbar spine. L3-L5 laminectomy defects. Normal [facility] Vital Signs Date Time Vital Sign Value Performing Clinician Rob witt 08-06-2023 09:43-0400 Body height 182.9 cm Pacc 1 Other Phone: [facility] 08-06-2023 09:43-0400 Body mass index (BMI) [Ratio] 26.43 kg/m2 Pacc 1 Other Phone: [facility] 08-06-2023 09:43-0400 Body temperature 98.1 [degF] Pacc 1 Other Phone: [facility] 08-06-2023 09:43-0400 Body weight 88.4 kg Pacc 1 Other Phone: [facility] 08-06-2023 09:43-0400 Diastolic blood pressure 69 mm[Hg] Pacc 1 Other Phone: [facility] 08-06-2023 09:43-0400 Heart rate 56 /min Pacc 1 Other Phone: [facility] 08-06-2023 09:43-0400 Respiratory rate 18 /min Pacc 1 Other Phone: [facility] 08-06-2023 09:43-0400 SaO2% (BldA) [Mass fraction] 100 % Pacc 1 Other Phone: [facility] 08-06-2023 09:43-0400 Systolic blood pressure 154 mm[Hg] Pacc 1 Other Phone: [facility] 04-30-2023 11:31-0500 Body height 182.9 cm Katherine Keith MD Work Phone: [facility] 04-30-2023 11:31-0500 Body weight 91.5 kg Katherine Keith MD Work Phone: [facility] 04-30-2023 11:31-0500 Diastolic blood pressure 69 mm[Hg] Katherine Keith MD Work Phone: [facility] 04-30-2023 11:31-0500 Heart rate 78 /min Katherine Keith MD Work Phone: [facility] 04-30-2023 11:31-0500 SaO2% (BldA) [Mass fraction] 96 % Katherine Keith MD Work Phone: [facility] 04-30-2023 11:31-0500 Systolic blood pressure 137 mm[Hg] Katherine eKith MD Work Phone: [facility] 10-30-2022 10:15-0400 Blood Pressure Location Shae Lue [facility] 10-30-2022 10:15-0400 Diastolic blood pressure 92 mm[Hg] Shae Lue [facility] 10-30-2022 10:15-0400 Heart rate 73 /min Shae Lue [facility] 10-30-2022 10:15-0400 Systolic blood pressure 145 mm[Hg] Shae Lue [facility] 10-28-2022 06:50-0400 Body height 182.88 cm MD Ester Cain Work Phone: [facility] 10-28-2022 06:50-0400 Body weight 83.91 kg MD Ester Cain Work Phone: [facility] 09-04-2022 07:45-0400 Blood Pressure Location Shae Lue [facility] 09-04-2022 07:45-0400 Diastolic blood pressure 98 mm[Hg] Shae Lue [facility] 09-04-2022 07:45-0400 Heart rate 51 /min Shae Lue [facility] 09-04-2022 07:45-0400 Respiratory rate 16 /min Shae Lue [facility] 09-04-2022 07:45-0400 Systolic blood pressure 175 mm[Hg] Shae Lue [facility] 04-03-2022 15:00-0500 Blood Pressure Location Camryn AGUSTIN [facility] 04-03-2022 15:00-0500 Diastolic blood pressure 96 mm[Hg] Camryn MOOREL [facility] [place] 04-03-2022 15:00-0500 Heart rate 80 /min Camryn AGUSTIN [facility] 04-03-2022 15:00-0500 Respiratory rate 16 /min Camryn AGUSTIN [facility] [place] 04-03-2022 15:00-0500 Systolic blood pressure 144 mm[Hg] Camrny AGUSTIN [facility] [place] Encounters Encounter Date Encounter Type Care Provider Facility Start: 08-22-2023 End: 08-22-2023 Evaluation and management of inpatient ESTER CAIN Facility:[facility] Start: 08-19-2023 End: 08-22-2023 Evaluation and management of inpatient ESTER CAIN Facility:[facility] Start: 08-12-2023 End: 08-12-2023 ambulatory ESTER CAIN Facility:[facility] Start: 08-11-2023 Telephone encounter Angelina Hackett [facility] Comment on above: Follow Up Start: 08-10-2023 ambulatory Sharif Veras RN [place] [address] Comment on above: Blood Management Start: 08-06-2023 End: 08-06-2023 ambulatory ALFONSO LOYD [facility] Start: 08-06-2023 Encounter for other preprocedural examination [facility] Start: 08-06-2023 End: 08-06-2023 Admission to [facility] Pacc Av 1 Other Phone: Pre Anesthesia Start: 08-06-2023 End: 08-06-2023 Patient encounter procedure Pacc Av 1 Other Phone: Pre Anesthesia Comment on above: Pre-op exam (Primary Dx); Primary hypertension; SVT (supraventricular tachycardia) (HCC); History of penicillin allergy Start: 08-06-2023 End: 08-06-2023 Preprocedural examination done Pacc Av 1 Other Phone: [facility] Work Phone: Start: 08-06-2023 End: 08-06-2023 ambulatory [facility] Start: 08-06-2023 Encounter for other preprocedural examination [facility] Start: 08-01-2023 Admission to [facility] Katherine Keith MD Work Phone: [facility] Comment on above: Soon[facility] Surgery Date Start: 08-01-2023 ambulatory Katherine Keith MD Work Phone: [facility] Start: 08-01-2023 Telephone encounter Katherine wright MD Work Phone: [facility] Comment on above: Patient Update Start: 07-30-2023 End: 07-30-2023 ambulatory ESTER CAIN Facility:[facility] Start: 07-14-2023 Telephone encounter Katherine wright MD Work Phone: [facility] Comment on above: Forms Start: 07-11-2023 ambulatory Katherine Keith MD Work Phone: [facility] Start: 07-11-2023 Patient encounter status Margarette Keith MD Work Phone: [facility] Start: 06-22-2023 Admission to [facility] Katherine Keith MD Work Phone: [facility] Comment on above: Surgery date Start: 06-22-2023 ambulatory Katherine Keith MD Work Phone: [facility] Start: 06-11-2023 ambulatory Katherine Keith MD Work Phone: [facility] Start: 06-11-2023 Documentation procedure Mark Keith MD Work Phone: [facility] Comment on above: LTD Documents Start: 06-11-2023 Telephone encounter Katherine wright MD Work Phone: [facility] Comment on above: Forms Start: 05-29-2023 Telephone encounter Katherine wright MD Work Phone: [facility] Comment on above: Schedule Surgery Start: 05-28-2023 Admission to same [facility] Katherine Keith MD Work Phone: [facility] Comment on above: Surgery date Start: 05-28-2023 ambulatory Katherine Keith MD Work Phone: [facility] Start: 05-23-2023 Admission to same [facility] Katherine Keith MD Work Phone: [facility] Comment on above: Surgery date Start: 05-23-2023 ambulatory Katherine Keith MD Work Phone: [facility] Start: 05-19-2023 Admission to [facility] Katherine Keith MD Work Phone: [facility] Comment on above: Surgery schedule Start: 05-19-2023 ambulatory Katherine Keith MD Work Phone: [facility] Start: 05-13-2023 End: 05-13-2023 ambulatory ESTER CAIN Facility:[facility] Start: 05-04-2023 ambulatory KATHERINE KEITH Facility: [facility] Start: 05-04-2023 End: 05-04-2023 Subsequent hospital visit by physician [facility] ([facility] Work Phone: [facility] Radiology CT Scan Comment on above: Chronic low back simba n, unspecified back pain laterality, unspecified whether sciatica present [M54.50, G89.29] Start: 04-30-2023 End: 04-30-2023 ambulatory ESTER CAIN Facility:[facility] Start: 04-30-2023 End: 04-30-2023 Subsequent hospital visit by physician [facility] Main A21 Radiology Comment on above: History of lumbar la minectomy for spinal cord decompression [Z98.890] Start: 04-30-2023 End: 04-30-2023 Patient encounter procedure Katherine Keith MD Work Phone: [facility] Comment on above: History of lumbar la minectomy for spinal cord decompression (Primary Dx); Degenerative scoliosis in adult patient; Chronic low back pain, unspecified back pain laterality, unspecified whether sciatica present Start: 04-30-2023 End: 04-30-2023 ambulatory ESTER CAIN Facility:[facility] Start: 04-30-2023 End: 04-30-2023 Subsequent hospital visit by physician X[facility] Main J1-4 Work Phone: Radiology Comment on above: Spinal stenosis, lum bar region with neurogenic claudication [M48.062] Start: 04-23-2023 ambulatory Shae Guillory Facility:[facility] Start: 03-19-2023 Chart abstracting Katherine landaverde MD Work Phone: Neurology Start: 01-08-2023 ambulatory Shae M. Lue Facility:[facility] Start: 12-05-2022 End: 12-06-2022 ambulatory Shae M. Lue Facility:[facility] Start: 12-05-2022 End: 12-05-2022 Patient encounter procedure Shae Sancheze [facility] Start: 11-27-2022 End: 11-28-2022 ambulatory Shae M. Laurae Facility:CD:[id number] Start: 10-30-2022 End: 10-31-2022 ambulatory Shae M. Lue Facility:[facility] Start: 10-30-2022 End: 10-30-2022 Patient encounter procedure Shae Sancheze [facility] Start: 10-28-2022 End: 10-28-2022 ambulatory Ester Cain Facility:[facility] Start: 10-28-2022 End: 10-28-2022 ambulatory MD Ester Cain Work Phone: [facility] Work Phone: Start: 10-28-2022 End: 10-28-2022 Patient encounter procedure MD Ester Cain Work Phone: [facility] [place] Work Phone: Start: 09-24-2022 ambulatory Camryn R TERESAL Facility :[facility] [place] Start: 09-04-2022 End: 09-05-2022 ambulatory Shae M. Lue Facility:[facility] Start: 09-04-2022 End: 09-04-2022 Patient encounter procedure Shae Powell Lue [facility] Start: 08-26-2022 ambulatory Camryn NILL Facility:[facility] [place] Start: 08-16-2022 End: 08-17-2022 ambulatory Camryn R NILL Facility:[facility] Start: 05-21-2022 End: 05-21-2022 Patient encounter procedure Camryn R NILL General Surgery [facility] Start: 05-07-2022 End: 05-08-2022 ambulatory Camryn R NILL Facility:[facility] Start: 05-07-2022 End: 05-07-2022 Patient encounter procedure Camryn R NILL General Surgery N[facility] [place] Start: 04-29-2022 End: 04-29-2022 ambulatory Camryn R TERESAL Facility:[facility] Start: 04-22-2022 End: 04-23-[address] Ester Cain Facility:[id number] Start: 04-19-2022 End: 04-20-2022 ambulatory Camryn R VAMSI Facility:[facility] Start: 04-14-2022 Encounter for preprocedural laboratory examination DR CAMRYN AGUSTIN . [facility] Start: 04-11-2022 End: 04-12-2022 Encounter for preprocedural laboratory examination DR WILTON NICHOLE Facility: Start: 04-11-2022 End: 04-12-[address] WILTON NICHOLE Facility: Start: 04-03-2022 End: 04-04-2022 ambulatory Camryn AGUSTIN Facility:[facility] Start: 04-03-2022 End: 04-03-2022 Patient encounter procedure Camryn R TERESAL General Surgery [facility] Start: 03-16-2022 End: 03-16-2022 ambulatory Edenilson Knight Facility:[facility] Start: 03-06-2022 End: 03-07-[address] ESTER CAIN . Facility:[facility] Start: 01-18-2022 End: 01-19-[address] ESTER CAIN . Facility:[facility] Start: 01-02-2022 Encounter for genera l adult medical examination without abnormal findings DR ESTER CAIN . [facility] Start: 01-01-2022 End: 01-02-[address] ESTER CAIN . Facility:[facility] Start: 12-28-2021 End: 12-29-[address] ESTER CAIN . Facility:[facility] Start: 12-28-2021 End: 12-29-2021 Encounter for general adult medical examination without abnormal findings DR ESTER CAIN . Facility:[facility] Start: 07-31-2020 End: 08-01-2020 ambulatory ESTER CAIN Facility:[email or web address] Procedures Date Procedure Procedure Detail Performing Clinician Start: 08-06-2023 Antibody screen KATHERINE KEITH Comment on above: Order Comment: Speci men Type: BLOOD SPECIMEN Ordering Facility: [facility] Address: [address] [place] [address] Performed By: #### T [id number] #### [facility] CLIA [id number] [place], [place] [id number] [place] [address] OF [place] Start: 08-06-2023 Ecg routine ecg w/le ast 12 lds i&r only Sanam KHALIL-C Work Phone: Start: 05-04-2023 Ct lumbar spine w/o contrast material Katherine Keith MD Work Phone: Start: 04-30-2023 Radex entir thrc lmb r crv sac spi w/skull 2/3 vw Katherine Keith MD Work Phone: Start: 04-30-2023 Radex spine lumbosac ral minimum 4 views Alfonso Loyd PA-C Work Phone: Start: 11-27-2022 Transperineal needle biopsy of prostate Shae Kahlil Start: 10-28-2022 MR prostate wo/w con MD Ester Cain Work Phone: Start: 04-29-2022 Laparoscopic repair of obstructed hernia of anterior abdominal wall Camryn AGUSTIN Start: 12-28-2021 PSA screening Edenilson delgado Comment on above: Performed By: #### P SASC, VITAD #### [facility] [address] [address] [address] Max Peck Start: 03-10-2012 Back structure, excl uding neck (body structure) Camryn NILL Start: 03-10-1999 Back structure, excl uding neck (body structure) Camryn NILL Start: 03-10-1993 Cholecystectomy Camryn NILL Excision of lesion o f skin Camryn NILL Comment on above: jehovah's witness and shave les on left neck History of excision of lamina of lumbar vertebra for decompression of spinal cord History of lumbar laminectomy for spinal cord decompression Xr A21 History of excision of lamina of lumbar vertebra for decompression of spinal cord History of lumbar laminectomy for spinal cord decompression Katherine Keith MD Work Phone: Laminectomy Camryn NILL Comment on above: x 3-- 2018, 2012, 20 Plan of Treatment Date Care Activity Detail Author Start: 12-28-2026 Prostate specific an tigen measurement Prostate Cancer Screening Discussion [facility] Start: 08-05-2026 Diabetes Screening Diabetes Screenin g [facility] Start: 11-09-2023 Influenza vaccination Influenz a Vaccine (Season Ended) [facility] Start: 10-14-2023 End: 10-14-2023 Patient encounter procedure Radiology Comment on above: post op lumbar post op in person Start: 10-08-2023 End: 10-08-2023 Patient encounter procedure 10/08/2023 12:40 PM EDT Office Visit [facility] [address] [place] [address] Katherine Keith MD [address] [place] [address] post op in person [facility] Comment on above: post op in person Start: 10-08-2023 End: 10-08-2023 Patient encounter procedure 10/08/2023 11:30 AM EDT Appointment Radiology [address] [place] [address] post op lumbar Radiology Comment on above: post op lumbar Start: 09-16-2023 End: 09-16-2023 ambulatory 09/16/2023 10:10 AM EDT [facility] [address] [place] [address] Alfonso Loyd PA-C [address] [place] [address] 2 week post op( virtual visit) [facility] Comment on above: 2 week post op( virt ual visit) Start: 09-02-2023 End: 09-02-2023 Admission to same day surgery center 09/02/2023 7:30 AM EDT - 09/02/2023 2:00 PM EDT Surgery Admitting [address] [place] [address] Katherine Keith MD [address] [place] [address] LAT LUMBAR SPINE FUSION Admitting Comment on above: LAT LUMBAR SPINE FUS ION Start: 09-02-2023 End: 09-02-2023 Arthrodesis lat extracavitary ea addl thrc/lmbr LAT THOR/LUMB, ADD'L SEG History of laminectomy Degenerative scoliosis in adult patient Pre-op testing 09/02/2023 7:30 AM EDT [facility] Start: 09-02-2023 End: 09-02-2023 Arthrodesis lateral extracavitary lumbar LAT LUMBAR SPINE FUSION History of laminectomy Degenerative scoliosis in adult patient Pre-op testing 09/02/2023 7:30 AM EDT [facility] Start: 09-02-2023 End: 09-02-2023 Insj biomchn dev intervertebral dsc spc w/arthrd INSERTION INTERBODY BIOMED DEVICE(S) W/ANT INSTR ANCHORING TO DISC SPACE W/INTERBODY FUSION,EA INTERSPACE History of laminectomy Degenerative scoliosis in adult patient Pre-op testing 09/02/2023 7:30 AM EDT [facility] Start: 09-02-2023 End: 09-02-2023 Posterior non-segmental instrumentation MINIMALLY INVASIVE POSTERIOR NONSEGMENTAL INSTRUMENTATION History of laminectomy Degenerative scoliosis in adult patient Pre-op testing 09/02/2023 7:30 AM EDT [facility] Start: 09-02-2023 Subsequent hospital visit by physician 09/02/2023 7:30 AM EDT Hospital Encounter Admitting [address] [place] [address] Katherine Keith MD [address] [place] [address] History of laminectomy [Z98.890] Admitting Comment on above: History of laminecto my [Z98.890] Start: 08-29-2023 End: 08-29-2023 ambulatory 08/29/2023 8:30 AM EDT [facility] [address] [place] [address] Alfonso Loyd PA-C [address] [place] [address] 2 week post op( virtual visit) [facility] Comment on above: 2 week post op( virt ual visit) Start: 08-28-2023 End: 08-28-2023 ambulatory 08/28/2023 10:00 AM EDT [facility] Patient Outreach [facility] [address] [place] [address] Provider, Nurse dAolfo Keating [address] [place] [address] Nurse KEATING [facility] Comment on above: Nurse KEATING Start: 08-19-2023 End: 08-19-2023 Admission to same day surgery center 08/19/2023 7:30 AM EDT - 08/19/2023 2:00 PM EDT Surgery Admitting [address] [place] [address] Katherine Keith MD [address] [place] [address] LAT LUMBAR SPINE FUSION Admitting Comment on above: LAT LUMBAR SPINE FUS ION Start: 08-19-2023 End: 08-19-2023 Arthrodesis lat extracavitary ea addl thrc/lmbr LAT THOR/LUMB, ADD'L SEG History of laminectomy Degenerative scoliosis in adult patient Pre-op testing 08/19/2023 7:30 AM EDT [facility] Start: 08-19-2023 End: 08-19-2023 Arthrodesis lateral extracavitary lumbar LAT LUMBAR SPINE FUSION History of laminectomy Degenerative scoliosis in adult patient Pre-op testing 08/19/2023 7:30 AM EDT [facility] Start: 08-19-2023 End: 08-19-2023 Insj biomchn dev intervertebral dsc spc w/arthrd INSERTION INTERBODY BIOMED DEVICE(S) W/ANT INSTR ANCHORING TO DISC SPACE W/INTERBODY FUSION,EA INTERSPACE History of laminectomy Degenerative scoliosis in adult patient Pre-op testing 08/19/2023 7:30 AM EDT [facility] Start: 08-19-2023 End: 08-19-2023 Posterior non-segmental instrumentation MINIMALLY INVASIVE POSTERIOR NONSEGMENTAL INSTRUMENTATION History of laminectomy Degenerative scoliosis in adult patient Pre-op testing 08/19/2023 7:30 AM EDT [facility] Start: 08-19-2023 Subsequent hospital visit by physician 08/19/2023 7:30 AM EDT Hospital Encounter Admitting [address] [place] [address] Katherine Keith MD [address] [place] [address] History of laminectomy [Z98.890] Admitting Comment on above: History of laminecto my [Z98.890] Start: 08-12-2023 End: 08-12-2023 ambulatory 08/12/2023 2:00 PM EDT [facility] [address] [place] [address] Provider, Nurse Adolfo Keating [address] [place] [address] Nurse KEATING [facility] Comment on above: Nurse KEATING Start: 08-11-2023 End: 11-10-2023 CBC W Auto Differential panel - Blood COMPLETE BLOOD COUNT AND DIFFERENTIAL Lab Routine History of laminectomy Degenerative scoliosis in adult patient Pre-op testing Iron deficiency anemia, unspecified iron deficiency anemia type Expected: 08/11/2023 (Approximate), Expires: 11/10/2023 [facility] Comment on above: Expected: 08/11/2023 (Approximate), Expires: 11/10/2023 Start: 08-11-2023 End: 11-10-2023 Ferritin [Mass/volume] in Serum or Plasma FERRITIN Lab Routine History of laminectomy Degenerative scoliosis in adult patient Pre-op testing Iron deficiency anemia, unspecified iron deficiency anemia type Expected: 08/11/2023 (Approximate), Expires: 11/10/2023 [facility] Comment on above: Expected: 08/11/2023 (Approximate), Expires: 11/10/2023 Start: 08-11-2023 End: 11-10-2023 Iron and Iron binding capacity panel - Serum or Plasma IRON AND TIBC Lab Routine History of laminectomy Degenerative scoliosis in adult patient Pre-op testing Iron deficiency anemia, unspecified iron deficiency anemia type Expected: 08/11/2023 (Approximate), Expires: 11/10/2023 [facility] Work Phone: Comment on above: Expected: 08/11/2023 (Approximate), Expires: 11/10/2023 Start: 08-11-2023 End: 11-10-2023 STAPHYLOCOCCUS AUREUS & MRSA SCREEN, PCR, NASAL STAPHYLOCOCCUS AUREUS & MRSA SCREEN, PCR, NASAL Lab Routine History of laminectomy Degenerative scoliosis in adult patient Pre-op testing Expected: 08/11/2023 (Approximate), Expires: 11/10/2023 [facility] Comment on above: Expected: 08/11/2023 (Approximate), Expires: 11/10/2023 Start: 08-06-2023 End: 08-06-2023 Patient encounter procedure Pre Anesthesia Comment on above: pre op pre op labs Start: 07-30-2023 End: 07-30-2023 Patient encounter procedure 07/30/2023 10:30 AM EDT Office [place] [id number] pre op gc [employer] [facility] Comment on above: pre op gc Start: 03-10-2023 Advance Directive Discussion Advance Directive Discussion [facility] Start: 03-10-2023 Behavioral Health Screening Behavioral Health Screening [facility] Start: 03-10-2023 Depression Assessment Depression Ass essment [facility] Start: 11-08-2022 Covid-19 Vaccine ( season) Covid-19 Vaccine ( season) [facility] Start: 11-08-2022 Influenza vaccination Influenza Vacc ine (#1) [facility] Start: 2022 Pneumococcal Vaccine : 65+ (1 of 1 - PCV) Pneumococcal Vaccine: 65+ (1 of 1 - PCV) [facility] Start: 2017 RSV Vaccine (1 - 1-d ose 60+ series) RSV Vaccine (1 - 1-dose 60+ series) [facility] Start: 2012 Prostate specific an tigen measurement Prostate Cancer Screening Discussion [facility] Start: 2007 Shingrix Vaccine (1 of 2) Mckinney grix Vaccine (1 of 2) [facility] Start: 2002 Diabetes Screening Diabetes Screenin g [facility] Start: 2002 Screening for malign ant neoplasm of colon [facility] Start: 1992 Lipid panel Lipid Screening [facility] Start: 1976 Urine microalbumin profile DTaP,Tdap,Td Vaccine (1 - Tdap) [facility] Start: 1975 Annual PCP Team Post Doc Fellowship mars Disease Visit Annual PCP Team Chronic Disease Visit [facility] Start: 1975 BP Controlled (<130/80) BP Controlle d (<130/80) [facility] Start: 1975 Hepatitis C screening Hepatitis C Sc irasema [facility] Start: 1957 Covid-19 Vaccine (#1) Covid-19 Vacci ne (#1) [facility] ECG COMPLETE ECG COMPLETE ECG Routine Pre-op exam 08/06/2023 8:48 AM EDT [facility] Work Phone: End: 04-30-2024 EMG(NEURO/NI) EMG(NEURO/NI) EMG Routine History of lumbar laminectomy for spinal cord decompression Degenerative scoliosis in adult patient Chronic low back pain, unspecified back pain laterality, unspecified whether sciatica present 1 Occurrences starting 04/30/2023 until 04/30/2024 [facility] Work Phone: Comment on above: 1 Occurrences starti ng 04/30/2023 until 04/30/2024 End: 04-19-2024 Radex spine lumbosacral minimum 4 views XR LUMBAR MOTION 4V AP/LAT/ FLEX/EXT Radiology Routine Spinal stenosis, lumbar region with neurogenic claudication 1 Occurrences starting 03/21/2023 until 04/19/2024 [facility] Work Phone: Comment on above: 1 Occurrences starti ng 03/21/2023 until 04/19/2024 End: 08-10-2024 XR Lumbar spine AP and Lateral XR LUMBAR LIMITED 2V AP/LAT Radiology Routine History of laminectomy Degenerative scoliosis in adult patient 1 Occurrences starting 07/11/2023 until 08/10/2024 [facility] Comment on above: 1 Occurrences starti ng 07/11/2023 until 08/10/2024 [facility] Immunizations Immunization Date Immunization Notes Care Provider Asmita baeza 12-29-2020 influenza virus vaccine, unspecified formulation Shae Guillory [facility] 12-29-2020 SARS-CoV-2 (COVID-19 ) mRNA BNT-162b2 vax turntable.fmL [facility] 06-09-2020 SARS-CoV-2 (COVID-19 ) mRNA BNT-162b2 vax turntable.fmL [facility] 05-19-2020 SARS-CoV-2 (COVID-19 ) mRNA BNT-162b2 vax turntable.fmL [facility] Comment on above: Result Comment: 2022: [id number] NEGATED: Highlighted row has not occurred!04-03-2022 influenza virus vaccine, unspecified formulation Camryn TERESAL [facility] NEGATED: Highlighted row has not occurred!05-27-2019 influenza virus vaccine, live, attenuated, for intranasal use Camryn AG[facility] [place] Payers Date Payer Category Payer Self-pay 2015 Private Health Insurance [facility] CHOICE PLUS [id number] 2015-Present [phone] [address] [address] [place] [address] HMO [id number] 1959 Private Health Insurance [id number] 1957 Unknown [id number] 2.16.840.1.813438.3.579.2 .647 1957 Unknown [id number] 2.16.840.1.943377.3.579.2 .356 1957 Unknown [id number] 2.16.840.1.984463.3.579.2 .593 1957 Unknown [id number] 2.16.840.1.401113.3.579.2 .593 1957 Unknown [id number] 2.16.840.1.306401.3.579.2 .593 1957 Unknown [id number] 2.16.840.1.731642.3.579.2 .593 1957 Unknown [id number] 2.16.840.1.728532.3.579.2 .593 1957 Unknown [id number] 2.16.840.1.145891.3.579.2 .593 1957 Unknown [id number] 2.16.840.1.606577.3.579.2 .593 1957 Unknown [id number] 2.16.840.1.285524.3.579.2 .727 1957 Unknown [id number] 2.16.840.1.707360.3.579.2 .727 1957 Unknown [id number] 2.16.840.1.826909.3.579.2 .727 1957 Unknown [id number] 2.16.840.1.721831.3.579.2 .727 1957 Unknown [id number] 2.16.840.1.955439.3.579.2 .727 1957 Unknown [id number] 2.16.840.1.122536.3.579.2 .727 1957 Unknown [id number] 2.16.840.1.025001.3.579.2 .727 1957 Unknown [id number] 2.16.840.1.205449.3.579.2 .727 1957 Unknown [id number] 2.16.840.1.442372.3.579.2 .727 1957 Unknown [id number] 2.16.840.1.142528.3.579.2 .727 1957 Unknown [id number] 2.16.840.1.095227.3.579.2 .727 1957 Unknown [id number] 2.16.840.1.979956.3.579.2 .727 1957 Unknown [id number] 2.16.840.1.101416.3.579.2 .727 Unknown Regular Insurance [id number] Unknown [id number] 2.16.840.1.963383.3.579.2 .531 Social History Date Type Detail Facility Start: 04-03-2022 End: 04-30-2023 Tobacco smoking status Never smoked tobacco (finding) [facility] Tobacco smoking status Never [facility] [place] Start: 04-30-2023 End: 08-06-2023 Sex Assigned At Male [facility] Start: 1955 Sex Assigned At Male [facility] Start: 09-12-2008 End: 04-30-2023 Alcohol intake Not Asked [facility] Start: 03-20-2023 Gender identity Identifies as male gender (finding) [facility] Start: 03-20-2023 Sexual orientation Heterosexual (prashanth membreno) [facility] Start: 04-30-2023 Tobacco use and exposure Former smokeless tobacco user [facility] End: 03-10-1999 History of tobacco use Chews Tobacco [facility] Start: 04-30-2023 End: 08-06-2023 History of Social function [facility] Start: 08-06-2023 Alcohol intake Lifetime non-d holger (finding) [facility] Functional Status Date Assessment Result Facility 12-05-2022 Functional Status N/A [facility] 10-30-2022 Functional Status N/A [facility] 09-04-2022 Functional Status No [facility] 04-03-2022 Functional Status N/A [facility] Clinical Notes 04-03-2022 to 08-22-2023 Telephone Encounter - Angelina Major LSW - 08/11/2023 12:57 PM EDTTelephone Encounter - Angelina Major LSW - 08/11/2023 12:57 PM EDTMc Sharif De La Cruz RN - 08/10/2023 10:56 AM EDTPatient Instructions Note Date & Type Note Facility 08-22-2023 Note HNO ID: [id number] Author: JUSTIN BEE CPhT Service: Pharmacy Author Type: Concrete Fence Builder Type: Plan of Care Filed: 08/22/2023 12:33 Note Text: PHARMACY BEDSIDE DELIVERY SERVICE Patient Name: Braden Rodriguez The marked outpatient medications were Filled at: [facility] and delivered to the patient's bedside to patient Medication List START taking these medications acetaminophen 325 mg tablet Commonly known as: TYLENOL 2 tablets by ORAL/FEEDING TUBE route every 4 hours. otc methocarbamol 750 mg tablet Commonly known as: ROBAXIN Take 1 tablet by mouth every 6 hours. Delivered oxyCODONE IR 5 mg immediate release tablet Commonly known as: ROXICODONE Take 1-2 tablets by mouth every 6 hours as needed for up to 7 days. Delivered senna-docusate 8.6-50 mg per tablet Commonly known as: SENNA-S Take 2 tablets by mouth two times a day. otc CONTINUE taking these medications carvedilol 12.5 mg tablet Commonly known as: COREG You might also be taking other medications not listed above. If you have questions about any of your other medications, talk to the person who prescribed them or your Primary Care Provider. STOP taking these medications Magnesium Oxide 500 mg Cap tiZANidine 4 mg tablet Commonly known as: ZANAFLEX Justin Bee CPhT PAGER: [phone] August 22, 2023 12:32 PM [facility] 08-21-2023 Note HNO ID: [id number] Author: SAE HOSKINS ? Service: Pharmacy Author Type: Concrete Fence Builder Type: Plan of Care Filed: 08/21/2023 16:02 Note Text: Insurance investigation completed Patient has active prescription insurance: Yes - Patient's insurance is in-network with [facility] Insurance loaded into [place]: Yes Test claim was completed to verify insurance is active: Successful Any questions, please contact your medication teller coordinator. Pager #: [phone] [facility] 08-21-2023 Note HNO ID: [id number] Author: APRIL COTTO PA-C Service: Neurosurgery Author Type: Physician Sausage Smoker Type: Progress Notes Filed: 08/21/2023 10:31 Note Text: SERVICE DATE: 08/21/2023 SERVICE TIME: 10:30 AM SPINE SURGERY TEAM PROGRESS NOTE After 6 PM (1800) please page Haley Floyd PA-C [phone], backup pager [phone]. Attending: Katherine Hogue MD Location: H060 [id number]/[id number] Hospital Day: 3 08/19/2023 2 Days Post-Op S/P: L2-5 OLIF and percutaneous pedicle screw instrumentation MEDICATIONS: Current medications and allergies reviewed. Recommended/planned medication changes discussed in detail in the A/P section below. INTERVAL HPI (Subjective): is a 68 year old male who reports unchanged foot drop this morning. Reviewed MRI results with patient. Dr. Keith discussed plan of care with patient, plan to continue observation of RLE symptoms. Denies bleeding, drainage, nausea, vomiting, chest pain, shortness of breath, light headedness, and swelling. Overnight events noted: none. Bowel / Bladder dysfunction: No OBJECTIVE: LABS: CBC: Recent Labs 08/21/23 0529 08/20/23 0728 WBC 13.46* 11.15* HB 11.6* 12.9* HCT 34.2* 39.0 PLT 324 389 MCV 93.4 98.0 RDWCV 13.1 13.2 BMP: Recent Labs 08/21/23 0529 08/20/23 0728 GLUC 140* 111* NA 138 140 K 4.4 4.0 CHLOR 106 105 CO2 22 24 ANION 10 11 BUN 14 10 CREAT 0.84 0.86 CHEM: Recent Labs 08/21/23 0529 08/20/23 0728 CA 9.5 9.3 Estimated Creatinine Clearance: 94.9 mL/min (based on SCr of 0.84 mg/dL). 08/21/23 0558 08/21/23 0646 08/21/23 0849 08/21/23 0943 BP: 164/81 139/67 Pulse: (!) 52 (!) 58 Resp: 18 16 15 Temp: 36.4 ?C (97.5 ?F) TempSrc: Oral SpO2: 98% 99% Weight: Height: General: A AND O x Oriented to: person, place, and time, awake and alert. Speech is Normal, full, fluent. Appears stated age, well built, in no apparent distress. Psychiatric: Mood and affect: Appropriate. Skin: Color, texture, turgor normal. No rashes or lesions - Inspection: No evidence of eythema, warmth, bruising, abrasions, scars, deformity, or lacerations. Dressings c/d/i CV: Normal heart sounds, rate, rhythm, pedal pulses. No audible murmurs, carotid bruits, LE edema. Respiratory: unlabored breathing Abdomen: Soft and Non-tender Musculoskeletal: Motor: UE BICEPS TRICEPS DELTS Wrist Ext Wrist Flex Hand Bander HI R 5/5 5/5 5/5 5/5 5/5 5/5 5/5 L 5/5 5/5 5/5 5/5 5/5 5/5 5/5 LE Hip Flex Knee Flex Knee Extend Plantarflex Dorsiflex EHL R 4-/5 (pain limitation 5/5 4+/5 5/5 2/5 3/5 L 4/5 (pain limitation 5/5 4+/5 5/5 0/5 2/5 New RLE foot drop, chronic LLE foot drop per patient Sensory: Diminished sensation in R anterior thigh (baseline per patient) . Gait: not assessed. Reflexes: Long Tract Signs: No clonus, Babinski, or Hoffmans. QUALITY CHECKLIST: Lines, Drains, and Airways Line Duration Peripheral 08/19/23 0906 [facility] Short Right Forearm 20 Gauge 2 days Peripheral 08/19/23 1150 [facility] Short Left Forearm 16 Gauge 1 day Current restraint orders: None Assessment AND Plan Active Hospital Problems as of 08/21/2023 Noted - Resolved POA Hospital Primary hypertension 08/06/2023 - Present Yes Current Assessment AND Plan Assessment: POA PLAN: -Resume coreg SVT (supraventricular tachycardia) (HCC) 08/06/2023 - Present Yes Current Assessment AND Plan Assessment: POA PLAN: -Resume home coreg * (Principal) S/P lumbar fusion 08/19/2023 - Present Yes Current Assessment AND Plan Assessment: S/p L2-5 OLIF with perc screws PLAN: -See degenerative scoliosis POC Acute post-operative pain 08/20/2023 - Present Yes Current Assessment AND Plan Assessment: Post-op pain PLAN: -Improved pain control, continue present regimen Scoliosis of lumbar region due to degenerative disease of spine in adult 08/20/2023 - Present Yes Current Assessment AND Plan Assessment: S/p L2-5 OLIF and percutaneous instrumentation PLAN: -CT and MRI of lumbar spine reviewed -Concern for possible stretch injury from L4-5 cage placement. -Continue dex 4mg q6h x 48h. -Pain control: continue present regimen -PT/OT rec [facility]HC -Upright x-rays when able -DVT ppx: continue IPCs, heparin SQ bid -OOB for meals, mobilize at least 3x daily -Bowel regimen -Anticipate d/c in 1-2 days -D/w Dr. Keith Foot drop, right foot 08/20/2023 - Present No Current Assessment AND Plan Assessment: New RLE foot drop postoperatively PLAN: -CT lumbar reviewed, hardware in good position -Concern for possible stretch injury from L4-5 cage placement. -Dex 4mg q6h x 24 hours -SSI, PPI while on steroids -Monitor for improvement in R foot drop Medication and Non-Pharmacologic VTE Prophylaxis/Anticoagulants Anticoagulant AND Antiplatelet Medications (From admission, onward) Start Dose Route Frequency Last Action Ordered Stop 08/21/23 0900 heparin 5,000 Un (more content not included)... [facility] 08-20-2023 Note HNO ID: [id number] Author: NEREIDA MARQUES RT(R) Service: Radiology Author Type: Inspector And Clipper Type: Progress Notes Filed: 08/20/2023 22:24 Note Text: Radiology Service Progress Note PATIENT NAME: Braden Rodriguez DATE OF SERVICE: August 20, 2023 TIME: 10:23 PM PATIENT IDENTITY VERIFICATION COMPLETED USING TWO (2) IDENTIFIERS: Name and Date of confirmed by patient verbally and Name and Date of confirmed by identification band. FALL SCREENING: Has the patient had 2 falls in the last year or 1 fall with injury or currently using an Ambulatory Assistive Device (Walker, Cane, Wheelchair, Crutches, etc.)? Inpatient: Screened on floor PATIENT GENDER DATA: Male PATIENT RELEVANT IMPLANT DATA REVIEWED: Yes PATIENT PRESENTS WITH AN IMPLANTABLE OR ATTACHED NEWS BROADCASTER: No RADIOLOGY DEPARTMENT: MR; Exam(s) Completed: Spine: Lumbar spine PERIPHERAL IV DATA: Not applicable SIGNED BY: RT Indra(R) August 20, 2023 10:23 PM [facility] 08-20-2023 Note HNO ID: [id number] Author: APRIL COTTO PA-C Service: Neurosurgery Author Type: Physician Sausage Smoker Type: Progress Notes Filed: 08/20/2023 11:04 Note Text: SERVICE DATE: 08/20/2023 SERVICE TIME: 11:04 AM SPINE SURGERY TEAM PROGRESS NOTE After 6 PM (1800) please page Haley Floyd PA-C [phone] or Oly Rowe PA-C [phone], backup pager [phone]. Attending: Katherine Hogue MD Location: [id number]/[id number] Hospital Day: 2 08/19/2023 1 Day Post-Op S/P: L2-5 OLIF and percutaneous pedicle screw instrumentation MEDICATIONS: Current medications and allergies reviewed. Recommended/planned medication changes discussed in detail in the A/P section below. INTERVAL HPI (Subjective): is a 68 year old male who reports severe low back pain following surgery. Denies any radicular pain. Reporting new R foot drop this morning. Has not passed flatus yet. Denies bleeding, drainage, nausea, vomiting, chest pain, shortness of breath, light headedness, and swelling. Overnight events noted: none. Bowel / Bladder dysfunction: No OBJECTIVE: LABS: CBC: Recent Labs 08/20/23 0728 WBC 11.15* HB 12.9* HCT 39.0 PLT 389 MCV 98.0 RDWCV 13.2 BMP: Recent Labs 08/20/23 0728 GLUC 111* NA 140 K 4.0 CHLOR 105 CO2 24 ANION 11 BUN 10 CREAT 0.86 CHEM: Recent Labs 08/20/23 0728 CA 9.3 Estimated Creatinine Clearance: 92.7 mL/min (based on SCr of 0.86 mg/dL). 08/19/23205608/20/23 0139 08/20/23 0513 08/20/23 0945 BP: 146/71 134/72 150/68 142/71 Pulse: 78 82 76 73 Resp: 18 18 18 17 Temp: 36.8 ?C (98.2 ?F) 37.4 ?C (99.3 ?F) 36.4 ?C (97.5 ?F) 37.1 ?C (98.8 ?F) TempSrc: Oral Axillary Oral Oral SpO2: 99% 95% 95% 96% Weight: Height: General: A AND O x Oriented to: person, place, and time, awake and alert. Speech is Normal, full, fluent. Appears stated age, well built, in no apparent distress. Psychiatric: Mood and affect: Appropriate. Skin: Color, texture, turgor normal. No rashes or lesions - Inspection: No evidence of eythema, warmth, bruising, abrasions, scars, deformity, or lacerations. Dressings c/d/i CV: Normal heart sounds, rate, rhythm, pedal pulses. No audible murmurs, carotid bruits, LE edema. Respiratory: unlabored breathing Abdomen: Soft and Non-tender Musculoskeletal: Motor: UE BICEPS TRICEPS DELTS Wrist Ext Wrist Flex Hand Bander HI R 5/5 5/5 5/5 5/5 5/5 5/5 5/5 L 5/5 5/5 5/5 5/5 5/5 5/5 5/5 LE Hip Flex Knee Flex Knee Extend Plantarflex Dorsiflex EHL R 4-/5 (pain limitation 5/5 4+/5 5/5 1/5 3/5 L 4/5 (pain limitation 5/5 4+/5 5/5 0/5 2/5 New RLE foot drop, chronic LLE foot drop per patient Sensory: Diminished sensation in R anterior thigh (baseline per patient) . Gait: not assessed. Reflexes: Long Tract Signs: No clonus, Babinski, or Hoffmans. QUALITY CHECKLIST: Lines, Drains, and Airways Line Duration Peripheral 08/19/23 0906 [facility] Short Right Forearm 20 Gauge 1 day Peripheral 08/19/23 1150 [facility] Short Left Forearm 16 Gauge <1 day Drain Duration Indwelling Urinary Catheter 08/19/23 1200 Coude 16 Fr <1 day D/c romero catheter Current restraint orders: None Assessment AND Plan Active Hospital Problems as of 08/20/2023 Noted - Resolved POA Hospital Primary hypertension 08/06/2023 - Present Yes Current Assessment AND Plan Assessment: POA PLAN: -Resume coreg SVT (supraventricular tachycardia) ([facility]) 08/06/2023 - Present Yes Current Assessment AND Plan Assessment: POA PLAN: -Resume home coreg * (Principal) S/P lumbar fusion 08/19/2023 - Present Yes Current Assessment AND Plan Assessment: S/p L2-5 OLIF with perc screws PLAN: -See degenerative scoliosis POC Acute post-operative pain 08/20/2023 - Present Yes Current Assessment AND Plan Assessment: Post-op pain PLAN: -Add Toradol -Increase robaxin to 750mg q6h -Continue prn oxycodone Scoliosis of lumbar region due to degenerative disease of spine in adult 08/20/2023 - Present Yes Current Assessment AND Plan Assessment: S/p L2-5 OLIF and percutaneous instrumentation PLAN: -CT lumbar reviewed, hardware in good position -Concern for possible stretch injury from L4-5 cage placement. -Dex 10mg x1, followed by 4mg q6h, assess for improvement in R foot drop -Pain control: continue present regimen -PT/OT evals pending -Upright x-rays when able -DVT ppx: continue IPCs, heparin SQ beginning POD2 -OOB for meals, mobilize at least 3x daily -Bowel regimen -D/c romero catheter -Anticipate d/c in 2-3 days -D/w Dr. Keith Foot drop, right foot 08/20/2023 - Present No Current Assessment AND Plan Assessment: New RLE foot drop postoperatively PLAN: -CT lumbar reviewed, hardware in good position -Concern for possible stretch injury from L4-5 cage placement. -Dex 10mg x1, followed by 4mg q6h -SSI, PPI while on steroids -Monitor for improvement in R foot drop Medi (more content not included)... [facility] 08-20-2023 Note HNO ID: [id number] Author: STEPAN ROSALES RT(R) Service: Radiology Author Type: Technologist Type: Progress Notes Filed: 08/20/2023 09:35 Note Text: Radiology Service Progress Note PATIENT NAME: Braden Rodriguez DATE OF SERVICE: August 20, 2023 TIME: 9:35 AM PATIENT IDENTITY VERIFICATION COMPLETED USING TWO (2) IDENTIFIERS: Name and Date of confirmed by patient verbally and Name and Date of confirmed by identification band. FALL SCREENING: Has the patient had 2 falls in the last year or 1 fall with injury or currently using an Ambulatory Assistive Device (Walker, Cane, Wheelchair, Crutches, etc.)? No PATIENT GENDER DATA: Male PATIENT RELEVANT IMPLANT DATA REVIEWED: Not Applicable PATIENT PRESENTS WITH AN IMPLANTABLE OR ATTACHED NEWS BROADCASTER: No RADIOLOGY DEPARTMENT: CT; Exam(s) Completed: Spine PERIPHERAL IV DATA: Not applicable SIGNED BY: RT uTcker(R) August 20, 2023 9:35 AM [facility] 08-20-2023 Note HNO ID: [id number] Author: SCHUYLER GOFF MD Service: Neurosurgery Author Type: Resident Type: Progress Notes Filed: 08/20/2023 06:52 Note Text: ORTHOPAEDIC SPINE SURGERY DAILY PROGRESS NOTE PATIENT NAME: Braden Rodriguez Attending: Katherine Hogue MD Date of Admission: 08/19/2023 8:21 AM Date of Surgery: 08/19/2023 Overnight events: NAEON S: Resting comfortably in bed. Drinking water well. Clear urine. Not passing gas yet. Doing well, pain well controlled, denies n/v/cp/sob VITALS: 08/19/23201408/19/23 2057 08/20/23 0139 08/20/23 0513 BP: 142/66 146/71 134/72 150/68 Pulse: 79 78 82 76 Resp: Temp: 36.8 ?C (98.2 ?F) 37.4 ?C (99.3 ?F) 36.4 ?C (97.5 ?F) TempSrc: Oral Axillary Oral SpO2: 98% 99% 95% 95% Weight: Height: Intake/Output Summary (Last 24 hours) at 08/20/2023 0649 Last data filed at 08/20/2023 0546 Gross per 24 hour Intake 3575 ml Output 2000 ml Net 1575 ml Physical Exam: Gen: awake, alert, converses appropriately, in no acute distress Resp: Unlabored on room air, no obvious wheezing Spine Exam: Dressing clean, dry, intact Spine Exam Upper Extremities UE Arm Abduction Arm Flexion Arm Extension Wrist Ext Wrist Flex Hand Bander HI R 5 5 5 5 5 5 5 L 5 5 5 5 5 5 5 Sensation to light touch intact to bilateral upper extremities Marino negative bilaterally Lower Extremities LE Hip Flex Knee Flex Knee Extend Plantarflex Dorsiflex EHL R 5 5 5 5 1 3 L 4 5 5 5 0 2 Sensation to light touch intact to bilateral lower extremities Clonus negative bilaterally Surgical Site: dressing c/d/i; no surrounding erythema or swelling, Labs: CBC:No results for input(s): WBC , HB , HCT , PLT , MCV , RDWCV , NEUTP , ABSNEUT , LYMPHP , MONOP , EODINP in the last 168 hours. COAG: No results for input(s): APTT , INR in the last 168 hours. BMP: No results for input(s): GLUC , NA , K , CHLOR , CO2 , ANION , BUN , CREAT in the last 168 hours. CHEM: No results for input(s): ALB , TPROT , CA , MG in the last 168 hours. URINALYSIS:No results for input(s): PH , SPGR , UGLUC , UBILI , UKET , UHB , UPROT , UROBIL , UWBC , SSA in the last 168 hours. Invalid input(s): NITR Lines, Drains, and Airways Line Duration Peripheral 08/19/23 0906 [facility] Short Right Forearm 20 Gauge <1 day Peripheral 08/19/23 1150 [facility] Short Left Forearm 16 Gauge <1 day Drain Duration Indwelling Urinary Catheter 08/19/23 1200 Coude 16 Fr <1 day Assessment/Plan Assessment: 68 year old year old male s/p L2-5 OLIF and percutaneous PSF w/ Katherine Keith MD on 08/19/2023 Plan: Weightbearing status: WBAT, no heavy lifting or twisting Activity restrictions: OOBAT Dressing: intact Drain: none Antibiotics: Completing 24 hours of perioperative ancef then DC Imaging: Standing Lumbar XR POD2 Pain - PO and IV breakthrough DVT prophylaxis - SCDs, SQH POD2 HLIV when tolerating sufficient PO Romero: dc POD1 Acute blood loss anemia: pending Electrolytes/renal: pending Discharge planning Physical therapy recs: pending assessment today Case Management: assessment today Disposition: pending assessment Plan of care discussed with: Provider, RN, Patient. Schuyler Goff MD PGY-1 Orthopaedic Surgery [facility] C: [phone] - [employer] message me for any questions or concerns [facility] 08-19-2023 Note HNO ID: [id number] Author: SCHUYLER GOFF MD Service: Neurosurgery Author Type: Resident Type: Progress Notes Filed: 08/20/2023 06:49 Note Text: ORTHOPAEDIC SPINE SURGERY POSTOPERATIVE EXAMINATION PATIENT NAME: Braden Rodriguez Attending: Katherine Keith MD A/P: 68 year old yo male s/p L2-5 OLIF and percutaneous PSF w/ Katherine Keith MD on 08/19/2023. No complications with EBL 50 mL. - Activity: WBAT, no heavy bending lifting or twisting - No drain - Antibiotics x 24 hrs periop - DVT prophylaxis - SCDs, SQH BID starting POD2 - Upright x-rays POD2 - Romero: remove POD1 - Pain - PO and IV breakthrough - Home meds reordered - PT/OT, appreciate recs for discharge Post Op Physical Exam: Gen: awake, alert, converses appropriately, NAD Resp: Unlabored, no wheeze Cardio: regular rate on monitor Neck/Back Upper Extremities UE Arm Abduction Arm Flexion Arm Extension Wrist Ext Wrist Flex Hand Bander HI R 5 5 5 5 5 5 5 L 5 5 5 5 5 5 5 Sensation to light touch intact to bilateral upper extremities Hands warm and well perfused Lower Extremities LE Hip Flex Knee Flex Knee Extend Plantarflex Dorsiflex EHL R 4 4 5 5 3 3 L 4 4 4 5 0 3 Sensation to light touch intact to bilateral lower extremities Feet warm and well perfused Surgical Site: dressing c/d/i; no surrounding erythema or swelling Schuyler Goff MD Orthopaedic Surgery PGY-1 For [facility] floor related issues [place], [place] [phone] If unable to reach the PA team between 6 am and 5 pm, please page me at [phone] At all other times, or if urgent, please page the orthopaedic on-call resident at: [phone] for [facility] patients [id number] for [facility] patients [id number] for [facility] patients [id number] for [facility] patients [id number] for [facility] patients [facility] 08-19-2023 Note HNO ID: [id number] Author: AGATA MCLEOD MD Service: ? 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 and patient sedated or unresponsive Staffing Anesthesiologist: Agata Mcleod MD Resident: Oswaldo Clinton MD Performed by: resident and anesthesiologist Indications and Patient Condition Indications for airway management: anesthesia Preoxygenated: yes anesthesia circuit Patient position: sniffing Method: asleep Difficult Mask: Yes Airway Accessory: oral airway Final Airway Details Final airway type: endotracheal airway Final Endotracheal Airway: ETT Cuffed: yes Successful intubation technique: flexible bronchoscopy Endotracheal tube insertion site: oral ETT size (mm): 7.5 Measured from: lips Measurement (cm): 23 Placement verified by: capnometry Number of attempts at approach: 3 or more Ventilation between attempts: 2 hand mask Other Attempts Unsuccessful attempted endotracheal techniques: video laryngoscopy Airway trauma: lip and oral cavity Airway not difficult Comments 2 attempts with Cisneros video laryngoscopy, able to obtain grade IIa view both times with BURP, however airway anterior and unable to manipulate ETT through glottis despite stylet with Cisneros on 2 attempts. Final airway secured with flexible bronchoscopy without issue. The patient maintained SpO2 >=98% between the intubation attempts with bag mask ventilation without difficulty. SIGNATURE: Oswaldo Clinton MD PATIENT NAME: Braden Rodriguez DATE: August 19, 2023 TIME: 12:30 PM CSN: [id number] [facility] 08-19-2023 Note HNO ID: [id number] Author: SCHUYLER GOFF MD Service: Neurosurgery Author Type: Resident Type: Progress Notes Filed: 08/19/2023 10:40 Note Text: ORTHOPAEDIC SPINE SURGERY PREOPERATIVE EXAMINATION PATIENT NAME: Braden Rodriguez Attending: Katherine Keith MD Braden Rodriguez presents today for surgery on their Lumbar spine. They report no changes to their baseline level of collette or function since last being seen in clinic. Pre-Op Physical Exam: Gen: awake, alert, converses appropriately, NAD Resp: Unlabored, no wheeze Cardio: regular rate to peripheral palpation Spine Exam Neck Full range of motion. No stepoffs/deformities. No tenderness or instability to palpation along spinous processes or paravertebral musculature Back No stepoffs/deformities. No tenderness or instability to palpation along spinous processes or paravertebral musculature Upper Extremities UE BICEPS TRICEPS DELTS Wrist Ext Wrist Flex Hand Bander HI R 5 5 5 5 5 5 5 L 5 5 5 5 5 5 5 Sensation to light touch intact to bilateral upper extremities +2 radial pulse Right: Triceps, Biceps, Brachial normoreflexic Left: Triceps, Biceps, Brachial normoreflexic Marino's: negative Lower Extremities LE Hip Flex Knee Flex Knee Extend Plantarflex Dorsiflex EHL R 5 5 5 5 5 5 L 5 5 5 5 0 2 Sensation to light touch intact to bilateral lower extremities - diminished sensation along L5 bilaterally +2 dorsalis pedis pulse Right: Patellar, Ankle normoreflexic Left: Patellar, Ankle normoreflexic Clonus: 0 Babinski: downgoing Braden Rodriguez is well appearing and appears stated age and is in no acute distress. No changes to previous plan for surgery. All questions answered. Schuyler Goff MD Orthopaedic Surgery PGY-1 For [facility] floor related issues [place] [phone] If unable to reach the PA team between 6 am and 5 pm, please page me at [phone] At all other times, or if urgent, please page the orthopaedic on-call resident at: [phone]) for [facility] patients [id number] for [facility] patients [id number] for [facility] patients [id number] for [facility] patients [phone] for [facility] patients [facility] 08-11-2023 Telephone encounter Note CM was able to leave a brief detailed message on identifed vm requesting call back to discuss post op care. CM provided contact information. [facility] 08-11-2023 Miscellaneous Notes CM was able to leave a brief detailed message on identifed vm requesting call back to discuss post op care. CM provided contact information. documented in this encounter [facility] 08-10-2023 Note HNO ID: [id number] Author: SHARIF VERAS RN Service: ? Author Type: Registered Nurse Type: Progress Notes Filed: 08/10/2023 10:56 Note Text: Patient referred to Blood Management for pre-surgical optimization. Hgb 15.1 which exceeds Blood Management guidelines for intervention. [facility] 08-10-2023 History of Presen t illness Narrative Patient referred to Blood Management for pre-surgical optimization. Hgb 15.1 which exceeds Blood Management guidelines for intervention. documented in this encounter [facility] 08-06-2023 History and physical note HISTORY AND PHYSICAL EXAMINATION SERVICE DATE: 08/06/2023 SERVICE TIME: 9:48 AM PRIMARY CARE PHYSICIAN: Jae Eduardo, DO Assessment/Plan 1. Pre-op exam Surgery 08/19/2023 - BASIC METABOLIC PANEL; Future - TYPE AND SCREEN,30 DAY; Future - CONFIRM BLOOD TYPE; Future - ECG COMPLETE 2. Primary hypertension Bp in office 154/69 continue carvedilol (Coreg) Last 14 Encounter BP Readings: Date: BP: 08/06/2023 154/69 04/30/2023 137/69 3. SVT (supraventricular tachycardia) (HCC) Stable with carvedilol (Coreg) and magnesium. Has not felt any palpations in a long time. 4. History of penicillin allergy Patient given Penicillin allergy handout. Allergy testing is highly recommended in the future, but not mandatory. Penicillin allergy consult placed - CONSULT TO PENICILLIN ALLERGY METS: Walking 2.5-5 miles a day Do moderate work around the house such as vacuuming, sweeping floors, or carrying in groceries (3.50 METs) Do yardwork, such as raking leaves, weeding,or pushing a power mower (4.50 METs) Climb a flight of stairs or walk up a hill (5.50 METs) Patient denies any chest pain or undue shortness of breath with the above physical activity. ANESTHESIA FINDINGS: Intubation History: No history of difficult intubation Significant Anesthesia Considerations: None Airway Exam: General: Normal appearance Mallampati Score is CLASS III ULBT: Class I - Lower incisors can bite the upper lip above the rhett line Neck: Normal appearance and function, Distance from hyoid to mentum during neck extension is at least 3 finger breaths Mouth: Normal tongue size and Mouth opening greater than 2 finger breaths Dentition: Intact Airway History: No history of difficult intubation STOP BANG Score: Criteria: Hypertension Age over 50 (68 year old) Male gender Score = 3 REASON FOR VISIT: Braden Rodriguez is a 68 year old year old male who is scheduled for LAT LUMBAR SPINE FUSION LAT THOR/LUMB, ADD'L SEG INSERTION INTERBODY BIOMED DEVICE(S) W/ANT INSTR ANCHORING TO DISC SPACE W/INTERBODY FUSION,EA INTERSPACE MINIMALLY INVASIVE POSTERIOR NONSEGMENTAL INSTRUMENTATION at the request of Katherine Hogue MD for consultation. My final recommendation will be communicated back to the requesting physician by way of shared medical record or letter. The patient has the following: ACTIVE PROBLEM LIST BENIGN NEOPLASM SKIN NEC-exam Neoplasm of Uncertain Behavior of Skin Benign Neoplasm of Skin, Site Unspecified Other Seborrheic Keratosis Primary Hypertension History of Penicillin Allergy Svt (Supraventricular Tachycardia) (Hcc) Subjective CHIEF COMPLAINT: Back pain HPI: Patient is a 68 year old male presenting for pre-anesthesia consultation. Patient has history of back pain with 3 previous lumbar surgeries with the last in 2019. He has a left foot drop and wears an AFO brace. He has been having some left leg pain and spasming over the last year. Relieving factors include [place] and steroids. Aggravating factors include repetitive movement. Patient has been recommended for above surgery. PAST MEDICAL HISTORY Diagnosis Date Benign neoplasm of skin, site unspecified 08/2008 right anterior shoulder; Inflamed seborrheic keratosis 08/2008 left anterior axillary line PAST SURGICAL HISTORY Procedure Laterality Date PAST SURGICAL HISTORY OF 2019 lumbar surgeries x 3 REMOVAL GALLBLADDER REPAIR INCISIONAL HERNIA,REDUCIBLE FAMILY HISTORY Problem Relation Age of Onset Cancer Father malignant melanoma SOCIAL HISTORY: Social History Tobacco Use Smoking status: Never Smokeless tobacco: Former Types: Chew Quit date: 1999 Substance Use Topics Alcohol use: Never Drug use: Never MEDICATIONS: Prior to Admission medications as of 08/06/23 0948 Medication Sig Last Dose Taking carvedilol (COREG) 12.5 mg tablet Take 12.5 mg by mouth two times a day with meals. Taking Yes tiZANidine (ZANAFLEX) 4 mg tablet Take 2 tablets by mouth daily at bedtime. Taking Yes mupirocin (BACTROBAN) 2 % ointment two times a day for 5 days. Apply 0.5 inch with cotton swab (Q-tip) to each nostril in the morning and evening for 5 days prior to and including day of surgery. Magnesium Oxide 500 mg cap Take 1 capsule by mouth two times a day. No medication comments found. CURRENT ALLERGIES: ALLERGIES Allergen Reactions Penicillins Rash COVID VACCINATION STATUS: Covid Immunization Dates Overdue - Covid-19 Vaccine ( season) Overdue since 11/08/2022 12/29/2020 Imm Admin: COVID-19 original vaccine, age 12+ yr, monovalent ([employer] - PURPLE TOP) 06/09/2020 Imm Admin: COVID-19 original vaccine, age 12+ yr, monovalent ([employer] - PURPLE TOP) 05/19/2020 Imm Admin: COVID-19 original vaccine, age 12+ yr, monovalent ([employer] - PURPLE TOP) REVIEW OF SYSTEMS: PAIN ASSESSMENT: Pain Pain Level: 5 Pain Location: Leg-Left Description: Aching, Burning, Cramping, Numbness, Pulsating, Raw, Sharp, Shooting, Spasm, Throbbing, Tingling Duration Amount of Time: 5 Duration Units: Months Frequency: Continuous Intervention/Comfort measure: Medication General: No weight loss, malaise or fevers. Neuro: No history of TIA's, stroke, DELIVERY TECHNICIAN tumor, impaired sensorium, hemiplegia, paraplegia or quadraplegia. No neurological symptoms or problems. Respiratory: No history of current cough or dyspnea, or pneumonia in the past 6 weeks. No history of respiratory/pulmonary symptoms or problems. Cardiovascular:+htn, SVT Negative for Recent AK, Angina, CAD, Chest Pain GI: No history of GI symptoms or problems. No history of esophageal varices, recent ascites, or ETOH greater than 2 drinks per day. : No history of dysuria, frequency or incontinence,, stones or chronic kidney disease Endocrine: No history of diabetes. Has not taken steroids within the past 30 days. No history of endocrinological symptoms or problems. Hematology: No history of bleeding or clotting disorder. Pt is not taking anti-coagulation or platelet medications. No history of hematological symptoms or problems. Oncology: No history of CA metastasis, chemo within 30 days, or radiotherapy within 90 days. Has not lost 10% of body wt in 6 months. No history of oncological symptoms or problems. Psych: No history of psychiatric symptoms or problems. Musculoskeletal: See HPI Skin: Negative for lesions, rash and itching. Objective PHYSICAL EXAM: VITALS: BP 154/69 Pulse 56 Temp (Src) 98.1 (Temporal) Resp 18 Ht 6' 0 (1.83m) Wt 194 lb 14.2 oz (88.4kg) SpO2 100% BMI 26.43 kg/(m^2). General: Alert and oriented, No acute distress Skin: Normal color, no rash, no lesions. HEENT: EOM, pupils equal, round and reactive. Cardiovascular: Normal S1 & S2, no rubs, murmurs or gallops. No JVD. Pulse regular. No carotid bruits appreciated. Lungs: Normal breath sounds, no wheezes or crackles. Abdomen: Soft, non-tender, no rigidity., Positive bowel sounds Extremities: No deformity, no edema or tenderness, no joint swelling or clubbing. Neurological: Normal cognition and motor skills. Pulses: Carotid and radial pulses normal +2. Diagnostic tests reviewed for today's visit: Lab Value Units Date High Low HB 15.1 g/dL 08/06/2023 17.0 13.0 HCT 46.3 % 08/06/2023 51.0 39.0 WBC 9.26 k/uL 08/06/2023 11.00 3.70 PLT 270 k/uL 08/06/2023 400 150 NA 137 mmol/L 08/06/2023 144 136 K 4.1 mmol/L 08/06/2023 5.1 3.7 GLUC 100 mg/dL 08/06/2023 99 74 BUN 23 mg/dL 08/06/2023 24 9 CREAT 1.00 mg/dL 08/06/2023 1.22 0.73 PTSEC No results within date range. INR No results within date range. APTT No results within date range. ALT No results within date range. AST No results within date range. TBILI No results within date range. TSH No results within date range. Lab Value Units Date High Low HCGQT No results within date range. UHCG No results within date range. HCG, BODY* No results within date range. Lab Value Units Date High Low ABORHD No results within date range. ABSCREEN No results within date range. No results found for: HBA1C All in Epic Most recent EK08/06/2023 preliminary Sinus bradycardia Possible left atrial enlargement Borderline ECG EKG 07/31/20 in care everywhere Sinus bradycardia Otherwise normal ECG No previous ECGs available Confirmed by Domenic Kohler ([id number]) on 07/31/2020 4:09:23 PM PLAN This patient is optimally prepared for surgery CONSULTS: Patient does not require consults for optimization at this time. The Following Tests/Procedures Have Been Initiated: Orders Placed This Encounter BMP Standing Status: Future Number of Occurrences: 1 Standing Expiration Date: 11/05/2023 CONSULT TO PENICILLIN ALLERGY Order Specific Question: Does consulting provider have [facility] Epic access? Answer: Yes Type and Screen, 30 day Standing Status: Future Number of Occurrences: 1 Standing Expiration Date: 11/05/2023 Confirm Blood Type Standing Status: Future Number of Occurrences: 1 Standing Expiration Date: 11/05/2023 Order Specific Question: Did Blood Bank direct you to place this order: Answer: No - Presurgical Workflow mupirocin (BACTROBAN) 2 % ointment Sig: two times a day for 5 days. Apply 0.5 inch with cotton swab (Q-tip) to each nostril in the morning and evening for 5 days prior to and including day of surgery. Dispense: 22 g Refill: 0 Magnesium Oxide 500 mg cap Sig: Take 1 capsule by mouth two times a day. ECG (IN OFFICE) Planned Anesthetic: Per anesthesia choice Instructions Given to Patient: Instructions located in the after visit summary. Patient given verbal and written preop instructions and voices comprehension and compliance. SIGNATURE: Sanam Gill PA-C PATIENT NAME: Braden Rodriguez DATE: 08/06/2023 TIME: 10:18 AM [facility] 08-06-2023 History and physical note HISTORY AND PHYSICAL EXAMINATION SERVICE DATE: 08/06/2023 SERVICE TIME: 9:48 AM PRIMARY CARE PHYSICIAN: Jae Eduardo, Assessment/Plan 1. Pre-op exam Surgery 08/19/2023 - BASIC METABOLIC PANEL; Future - TYPE AND SCREEN,30 DAY; Future - CONFIRM BLOOD TYPE; Future - ECG COMPLETE 2. Primary hypertension Bp in office 154/69 continue carvedilol (Coreg) Last 14 Encounter BP Readings: Date: BP: 08/06/2023 154/69 04/30/2023 137/69 3. SVT (supraventricular tachycardia) (HCC) Stable with carvedilol (Coreg) and magnesium. Has not felt any palpations in a long time. 4. History of penicillin allergy Patient given Penicillin allergy handout. Allergy testing is highly recommended in the future, but not mandatory. Penicillin allergy consult placed - CONSULT TO PENICILLIN ALLERGY METS: Walking 2.5-5 miles a day Do moderate work around the house such as vacuuming, sweeping floors, or carrying in groceries (3.50 METs) Do yardwork, such as raking leaves, weeding,or pushing a power mower (4.50 METs) Climb a flight of stairs or walk up a hill (5.50 METs) Patient denies any chest pain or undue shortness of breath with the above physical activity. ANESTHESIA FINDINGS: Intubation History: No history of difficult intubation Significant Anesthesia Considerations: None Airway Exam: General: Normal appearance Mallampati Score is CLASS III ULBT: Class I - Lower incisors can bite the upper lip above the rhett line Neck: Normal appearance and function, Distance from hyoid to mentum during neck extension is at least 3 finger breaths Mouth: Normal tongue size and Mouth opening greater than 2 finger breaths Dentition: Intact Airway History: No history of difficult intubation STOP BANG Score: Criteria: Hypertension Age over 50 (68 year old) Male gender Score = 3 REASON FOR VISIT: Braden Rodriguez is a 68 year old year old male who is scheduled for LAT LUMBAR SPINE FUSION LAT THOR/LUMB, ADD'L SEG INSERTION INTERBODY BIOMED DEVICE(S) W/ANT INSTR ANCHORING TO DISC SPACE W/INTERBODY FUSION,EA INTERSPACE MINIMALLY INVASIVE POSTERIOR NONSEGMENTAL INSTRUMENTATION at the request of Katherine Hogue MD for consultation. My final recommendation will be communicated back to the requesting physician by way of shared medical record or letter. The patient has the following: ACTIVE PROBLEM LIST BENIGN NEOPLASM SKIN NEC-exam Neoplasm of Uncertain Behavior of Skin Benign Neoplasm of Skin, Site Unspecified Other Seborrheic Keratosis Primary Hypertension History of Penicillin Allergy Svt (Supraventricular Tachycardia) (Hcc) Subjective CHIEF COMPLAINT: Back pain HPI: Patient is a 68 year old male presenting for pre-anesthesia consultation. Patient has history of back pain with 3 previous lumbar surgeries with the last in 2019. He has a left foot drop and wears an AFO brace. He has been having some left leg pain and spasming over the last year. Relieving factors include [place] and steroids. Aggravating factors include repetitive movement. Patient has been recommended for above surgery. PAST MEDICAL HISTORY Diagnosis Date Benign neoplasm of skin, site unspecified 08/2008 right anterior shoulder; Inflamed seborrheic keratosis 08/2008 left anterior axillary line PAST SURGICAL HISTORY Procedure Laterality Date PAST SURGICAL HISTORY OF 2019 lumbar surgeries x 3 REMOVAL GALLBLADDER REPAIR INCISIONAL HERNIA,REDUCIBLE FAMILY HISTORY Problem Relation Age of Onset Cancer Father malignant melanoma SOCIAL HISTORY: Social History Tobacco Use Smoking status: Never Smokeless tobacco: Former Types: Chew Quit date: 1999 Substance Use Topics Alcohol use: Never Drug use: Never MEDICATIONS: Prior to Admission medications as of 08/06/23 0948 Medication Sig Last Dose Taking carvedilol (COREG) 12.5 mg tablet Take 12.5 mg by mouth two times a day with meals. Taking Yes tiZANidine (ZANAFLEX) 4 mg tablet Take 2 tablets by mouth daily at bedtime. Taking Yes mupirocin (BACTROBAN) 2 % ointment two times a day for 5 days. Apply 0.5 inch with cotton swab (Q-tip) to each nostril in the morning and evening for 5 days prior to and including day of surgery. Magnesium Oxide 500 mg cap Take 1 capsule by mouth two times a day. No medication comments found. CURRENT ALLERGIES: ALLERGIES Allergen Reactions Penicillins Rash COVID VACCINATION STATUS: Covid Immunization Dates Overdue - Covid-19 Vaccine () Overdue since 11/08/2022 12/29/2020 Imm Admin: COVID-19 original vaccine, age 12+ yr, monovalent ([employer] - PURPLE TOP) 06/09/2020 Imm Admin: COVID-19 original vaccine, age 12+ yr, monovalent (P[employer] - PURPLE TOP) 05/19/2020 Imm Admin: COVID-19 original vaccine, age 12+ yr, monovalent (P[employer] - PURPLE TOP) REVIEW OF SYSTEMS: PAIN ASSESSMENT: Pain Pain Level: 5 Pain Location: Leg-Left Description: Aching, Burning, Cramping, Numbness, Pulsating, Raw, Sharp, Shooting, Spasm, Throbbing, Tingling Duration Amount of Time: 5 Duration Units: Months Frequency: Continuous Intervention/Comfort measure: Medication General: No weight loss, malaise or fevers. Neuro: No history of TIA's, stroke, DELIVERY TECHNICIAN tumor, impaired sensorium, hemiplegia, paraplegia or quadraplegia. No neurological symptoms or problems. Respiratory: No history of current cough or dyspnea, or pneumonia in the past 6 weeks. No history of respiratory/pulmonary symptoms or problems. Cardiovascular:+htn, SVT Negative for Recent AK, Angina, CAD, Chest Pain GI: No history of GI symptoms or problems. No history of esophageal varices, recent ascites, or ETOH greater than 2 drinks per day. : No history of dysuria, frequency or incontinence,, stones or chronic kidney disease Endocrine: No history of diabetes. Has not taken steroids within the past 30 days. No history of endocrinological symptoms or problems. Hematology: No history of bleeding or clotting disorder. Pt is not taking anti-coagulation or platelet medications. No history of hematological symptoms or problems. Oncology: No history of CA metastasis, chemo within 30 days, or radiotherapy within 90 days. Has not lost 10% of body wt in 6 months. No history of oncological symptoms or problems. Psych: No history of psychiatric symptoms or problems. Musculoskeletal: See HPI Skin: Negative for lesions, rash and itching. Objective PHYSICAL EXAM: VITALS: BP 154/69 Pulse 56 Temp (Src) 98.1 (Temporal) Resp 18 Ht 6' 0 (1.83m) Wt 194 lb 14.2 oz (88.4kg) SpO2 100% BMI 26.43 kg/(m^2). General: Alert and oriented, No acute distress Skin: Normal color, no rash, no lesions. HEENT: EOM, pupils equal, round and reactive. Cardiovascular: Normal S1 & S2, no rubs, murmurs or gallops. No JVD. Pulse regular. No carotid bruits appreciated. Lungs: Normal breath sounds, no wheezes or crackles. Abdomen: Soft, non-tender, no rigidity., Positive bowel sounds Extremities: No deformity, no edema or tenderness, no joint swelling or clubbing. Neurological: Normal cognition and motor skills. Pulses: Carotid and radial pulses normal +2. Diagnostic tests reviewed for today's visit: Lab Value Units Date High Low HB 15.1 g/dL 08/06/2023 17.0 13.0 HCT 46.3 % 08/06/2023 51.0 39.0 WBC 9.26 k/uL 08/06/2023 11.00 3.70 PLT 270 k/uL 08/06/2023 400 150 NA 137 mmol/L 08/06/2023 144 136 K 4.1 mmol/L 08/06/2023 5.1 3.7 GLUC 100 mg/dL 08/06/2023 99 74 BUN 23 mg/dL 08/06/2023 24 9 CREAT 1.00 mg/dL 08/06/2023 1.22 0.73 PTSEC No results within date range. INR No results within date range. APTT No results within date range. ALT No results within date range. AST No results within date range. TBILI No results within date range. TSH No results within date range. Lab Value Units Date High Low HCGQT No results within date range. UHCG No results within date range. HCG, BODY* No results within date range. Lab Value Units Date High Low ABORHD No results within date range. ABSCREEN No results within date range. No results found for: HBA1C All in Epic Most recent EK08/06/2023 preliminary Sinus bradycardia Possible left atrial enlargement Borderline ECG EKG 07/31/20 in care everywhere Sinus bradycardia Otherwise normal ECG No previous ECGs available Confirmed by Domenic Kohler ([id number]) on 07/31/2020 4:09:23 PM PLAN This patient is optimally prepared for surgery CONSULTS: Patient does not require consults for optimization at this time. The Following Tests/Procedures Have Been Initiated: Orders Placed This Encounter BMP Standing Status: Future Number of Occurrences: 1 Standing Expiration Date: 11/05/2023 CONSULT TO PENICILLIN ALLERGY Order Specific Question: Does consulting provider have [facility] access? Answer: Yes Type and Screen, 30 day Standing Status: Future Number of Occurrences: 1 Standing Expiration Date: 11/05/2023 Confirm Blood Type Standing Status: Future Number of Occurrences: 1 Standing Expiration Date: 11/05/2023 Order Specific Question: Did Blood Bank direct you to place this order: Answer: No - Presurgical Workflow mupirocin (BACTROBAN) 2 % ointment Sig: two times a day for 5 days. Apply 0.5 inch with cotton swab (Q-tip) to each nostril in the morning and evening for 5 days prior to and including day of surgery. Dispense: 22 g Refill: 0 Magnesium Oxide 500 mg cap Sig: Take 1 capsule by mouth two times a day. ECG (IN OFFICE) Planned Anesthetic: Per anesthesia choice Instructions Given to Patient: Instructions located in the after visit summary. Patient given verbal and written preop instructions and voices comprehension and compliance. SIGNATURE: Sanam Gill PA-C PATIENT NAME: Braden Rodriguez DATE: 08/06/2023 TIME: 10:18 AM documented in this encounter [facility] 08-01-2023 Telephone encounter Note Duplicate, patient already spoke to RN (see phone encounter). [facility] 08-01-2023 Miscellaneous Notes Duplicate, patient already spoke to RN (see phone encounter). documented in this encounter [facility] 08-01-2023 Telephone encounter Note Patient accepts sooner date of 08/18 New education class on 08/11 at 2 PM Will change post ops He voiced appreciation. No further questions. [facility] 08-01-2023 Miscellaneous Notes Patient accepts sooner date of 08/18 New education class on 08/11 at 2 PM Will change post ops He voiced appreciation. No further questions. Patient is returning nurse call pertaining to below message, sooner appt call back [phone] Called patient to offer sooner surgery date Left message to return call to the office documented in this encounter [facility] 08-01-2023 Telephone encounter Note Patient is returning nurse call pertaining to below message, sooner appt call back [phone] [facility] 08-01-2023 Instructions Sanam Gill PA-C - 08/01/2023 9:35 AM EDT PATIENT PREOPERATIVE INSTRUCTIONS Katherine Keith MD has scheduled you for your procedure at this surgery center: [facility] [place] Scheduling Office: [phone] --[id number] [place] [address]. Please read below carefully for your personalized instructions. Arrival Time for Surgery: - To obtain your arrival time for surgery, call your physician's office the day before your surgery. - If your surgery is scheduled for Friday, call the Friday before. Your surgeon s gusset edger will tell you what time to call the office. - If you have not reached the departmental gusset edger by 5 P.M., call [phone] after 5 P.M. the day before your surgery. Please be aware that emergency situations arise, which may delay or change your surgical time. If this happens, we will notify you as soon as possible and regret any inconvenience. Dietary Restrictions: - No solid food after midnight. - You may have 12 ounces of clear liquids (water, clear juices such as apple juice or gatorade, carbonated beverages, clear tea, black coffee, jello) until 2 hours before scheduled arrival at facility. Medications: Unless instructed differently below, stay on all of your medications until your surgery. Approved medications to take the morning of surgery with a sip of water: carvedilol (Coreg) DO NOT TAKE YOUR lisinopril THE NIGHT BEFORE OR MORNING OF SURGERY If you take any medications for erectile dysfunction-Cialis (Tadalafil), Levitra, Staxyn (Vardenafil) Viagra (Sildenenafil please do not take these for 48 hours before surgery. If you start any new medications after today's visit, please contact the surgeon's office. Blood Thinning Medications: - Stop NSAIDS (Ibuprofen, Advil, Aleve, Motrin, Celebrex, Mobic, etc.) 7 days before surgery, as directed by your surgeon. - Stop Aspirin 7 days before surgery, as directed by your surgeon. - Stop Vitamin E, ALL multi-vitamins, herbals and dietary supplements 7 days before surgery. - You may take Tylenol (Acetaminophen) or any of your pain medications that do not contain aspirin or NSAIDS as needed. Important Reminders: - Use nasal ointment for 5 days before and day of surgery in both nostril 2 times per day. - Candy, mints, and tobacco products are NOT permitted the morning of surgery. - Hearing aids, dentures and glasses may be worn the morning of surgery. - NO jewelry, body piercings, makeup, hairpins or contacts are to be worn the day of surgery. If you develop symptoms such as a fever, cold, or flu, or have other changes to your health within TWO DAYS of scheduled surgery or the morning of surgery, please contact the surgery center above. Personal Belongings: -Please have photo ID and insurance cards. -If you do not have a copy of advance directives on file with us, please bring a copy with you on the day of surgery. - Leave ALL valuables and money at home or with family members. If you already have an Advance Directive, please fax a copy to [phone] or email to for it to be added to your chart. If you do not have an Advance Directive, you can find the appropriate form and more information at [email or web address]. We recommend that you complete the Advance Directive form found on the website and bring it with you the day of your surgery. It can be witnessed and scanned into your chart that day. Sanam Gill PA-C documented in this encounter [facility] 08-01-2023 Telephone encounter Note Called patient to offer sooner surgery date Left message to return call to the office [facility] 07-14-2023 Telephone encounter Note Received, Reviewed Jamey Disability Attending Physician Statement [employer] forms and need signed by Dr. Keith Sent to Dr. Keith via [employer] for signature Leave dates: 09/02/23-11/07/23 No Post op appt scheduled as of yet. Alyssa Maldonado LPN [facility] 07-14-2023 Miscellaneous Notes Received, Reviewed [employer] Disability Attending Physician Statement [employer] forms and need signed by Dr. Keith Sent to Dr. Keith via [employer] for signature Leave dates: 09/02/23-11/07/23 No Post op appt scheduled as of yet. Alyssa Maldonado LPN documented in this encounter [facility] 06-12-2023 Miscellaneous Notes Neuro SPINE CARE COORDINATION QUICK NOTE Called patient to discuss disability paperwork. His PCP has completed his previous STD paperwork Patient is not scheduled for surgery until August. Discussed this office will be able to complete his disability paperwork postop Advised to reach out to his PCP to continue with disability until surgery. Patient states Jamey Chatalog only needs office note. This office will fax over the office note from 04/30 No further questions. I received [employer] forms for LTD. I called patient to explain we don't complete LTD, but he stated that he is not currently working and have exhausted his STD. He states the form is due 06/12/23. Sending to CC. Oliver to review Received Attending Physician's Statement from [email or web address]. Sent via [employer] for processing. documented in this encounter [facility] 05-29-2023 Miscellaneous Notes Neuro SPINE CARE COORDINATION SURGERY SCHEDULING Patient accepts surgery date of 09/[address] Keith. Planned procedure is 2-5 ATP Fusion with perc . PACC will be in person. Medications reviewed : Yes}. Meds to be stopped prior to surgery : NSAIDS and Vitamins and supplements. Additional pre op clearances needed : none. Any implanted devices : No. Transplant History No Patient will get optimization lab work : Blood Management . Questions answered. Patient verbalizes understanding via teach back. Additional comments : lives at home with who will help with post op care Preoperative Needs Assessment Do you live alone or with someone that can help you? Lives with caregiver Will you have assistance available at home after your surgery to help with physical activities such a toileting or dressing? Always How many steps do you need to climb to get into your home? 1-10 Once in your home, how many steps do you need to climb to access your bedroom or bathroom? 0 Do you use a mobility aid for walking/getting around? (note, if more than one type of aid is used, select the one that is used more frequently) None Anticipated LOS > 5 days: No Significant home social issues or Current history or past history of substance abuse: No Wheelchair baseline, Homebound baseline, Significant gait instability, or History of significant falls: No Thora/lumbar fusion any level planned or 2+ level posterior cervical fusion planned: Yes Myelopathic or Spine tumor: No Probability of non-home discharge disposition : Low [5.2] Wellington Castaneda RN Surgery Planning Name: Braden Rodriguez Age: [age] year old Wt: 91.5 kg (201 lb 11.5 oz) BMI: 27.36 kg/(m^2) Procedure: 2-5 ATP Fusion with perc Diagnosis: (Z98.890) History of lumbar laminectomy for spinal cord decompression (primary encounter diagnosis) (M41.50) Degenerative scoliosis in adult patient Length of Surgery:6 Expected Length of Hospital Stay:3 Special needs: n/a PMH: PAST MEDICAL HISTORY Diagnosis Date Benign neoplasm of skin, site unspecified 08/2008 right anterior shoulder; Inflamed seborrheic keratosis 08/2008 left anterior axillary line PSH: No past surgical history on file. Nicotine: Tobacco Use: Never HGBA1C: No results found for: HBA1C CBC:No results found for: HB , HCT , WBC , PLT Optimization Labs:Blood Management Last In-person appointment w/ Dr. Katherine Keith:04/30 Please schedule PAT for Gayathri the week of 08/04. Please schedule pre op consent with Dr Keith: n/a Please schedule pre op RN education phone call: 08/27 at 10 AM Nurse ROBERTO Please schedule 2 week post op C Bonus ( virtual visit) Please schedule post op Xray before follow up visit Please schedule post op in person with Dr Keith 6-8wks post op [place] call: anytime Blood Thinner: No Consults: Type(s):None Provider: Conservative Therapy: Has done 3 surgeries, injections, PT>6 weeks, OTC and Rx medications for his back issues since onset in 1999. Currently with subacute foot drop as stated above Other Medication/Concerns: n/a Orders Nicotine N/A HGBA1C N/A Blood MGMT X Mupriocin/swab X XRAY X Surg Elective X PACC X Education MC X Urology/CT Lumbar N/A TREK/MC N/A documented in this encounter [facility] 05-13-2023 Note HNO ID: [id number] Author: KARAN FERNANDO MD Service: ? Author Type: Physician Type: Progress Notes Filed: 05/13/2023 13:33 Note Text: UNIVERSAL PROTOCOL / SAFETY CHECKLIST Procedure to be Performed: EMG Sign In: A Moment of CARE was completed. Personnel directly involved with the procedure wore the appropriate PPE (Personal Protective Equipment). Patient/Surrogate Stated/Verified: PATIENT VERIFIED(optional for EMERGENT procedures): Patient name, Date of , Relevant allergies, and The intended procedure Time Out Communication: Intended patient and procedure match the source documents. Correct side/site marked and visible. Sign Out: SIGN OUT (optional for EMERGENT procedures): Post-procedure follow-up management communicated and Plan of Care Visit completed when applicable. Blanca Cain, EMG Tech Karan Fernando MD [facility] 05-04-2023 History of Presen t illness Narrative Radiology Service Progress Note PATIENT NAME: Braden Rodriguez DATE OF SERVICE: May 04, 2023 TIME: 8:09 AM PATIENT IDENTITY VERIFICATION COMPLETED USING TWO (2) IDENTIFIERS: Name and Date of confirmed by patient verbally and Name and Date of confirmed by identification band. FALL SCREENING: Has the patient had 2 falls in the last year or 1 fall with injury or currently using an Ambulatory Assistive Device (Walker, Cane, Wheelchair, Crutches, etc.)? No PATIENT GENDER DATA: Male PATIENT RELEVANT IMPLANT DATA REVIEWED: Not Applicable PATIENT PRESENTS WITH AN IMPLANTABLE OR ATTACHED NEWS BROADCASTER: No RADIOLOGY DEPARTMENT: CT; Exam(s) Completed: Spine PERIPHERAL IV DATA: Not applicable SIGNED BY: MARY Gomes) May 04, 2023 8:09 AM documented in this encounter [facility] 05-04-2023 Note HNO ID: [id number] Author: BLANCA PRICE RT (R) Service: Radiology Author Type: Technologist Type: Progress Notes Filed: 05/04/2023 08:09 Note Text: Radiology Service Progress Note PATIENT NAME: Braden Rodriguez DATE OF SERVICE: May 04, 2023 TIME: 8:09 AM PATIENT IDENTITY VERIFICATION COMPLETED USING TWO (2) IDENTIFIERS: Name and Date of confirmed by patient verbally and Name and Date of confirmed by identification band. FALL SCREENING: Has the patient had 2 falls in the last year or 1 fall with injury or currently using an Ambulatory Assistive Device (Walker, Cane, Wheelchair, Crutches, etc.)? No PATIENT GENDER DATA: Male PATIENT RELEVANT IMPLANT DATA REVIEWED: Not Applicable PATIENT PRESENTS WITH AN IMPLANTABLE OR ATTACHED NEWS BROADCASTER: No RADIOLOGY DEPARTMENT: CT; Exam(s) Completed: Spine PERIPHERAL IV DATA: Not applicable SIGNED BY: MARY Gomes) May 04, 2023 8:09 AM [facility] 04-30-2023 History of Presen t illness Narrative Radiology Service Progress Note PATIENT NAME: Braden Rodriguez DATE OF SERVICE: April 30, 2023 TIME: 1:42 PM PATIENT IDENTITY VERIFICATION COMPLETED USING TWO (2) IDENTIFIERS: Name and Date of confirmed by patient verbally. FALL SCREENING: Has the patient had 2 falls in the last year or 1 fall with injury or currently using an Ambulatory Assistive Device (Walker, Cane, Wheelchair, Crutches, etc.)? No PATIENT GENDER DATA: Male PATIENT RELEVANT IMPLANT DATA REVIEWED: Not Applicable PATIENT PRESENTS WITH AN IMPLANTABLE OR ATTACHED NEWS BROADCASTER: No RADIOLOGY DEPARTMENT: General X-ray: Exam(s) Completed: Spine X-Ray(s): Scoliosis Series PERIPHERAL IV DATA: Not applicable SIGNED BY: RT Jimbo(Michael) April 30, 2023 1:42 PM documented in this encounter [facility] 04-30-2023 Note HNO ID: [id number] Author: CHERYL MENCHACA RT(R) Service: Radiology Author Type: Technologist Type: Progress Notes Filed: 04/30/2023 13:42 Note Text: Radiology Service Progress Note PATIENT NAME: Braden Rodriguez DATE OF SERVICE: April 30, 2023 TIME: 1:42 PM PATIENT IDENTITY VERIFICATION COMPLETED USING TWO (2) IDENTIFIERS: Name and Date of confirmed by patient verbally. FALL SCREENING: Has the patient had 2 falls in the last year or 1 fall with injury or currently using an Ambulatory Assistive Device (Walker, Cane, Wheelchair, Crutches, etc.)? No PATIENT GENDER DATA: Male PATIENT RELEVANT IMPLANT DATA REVIEWED: Not Applicable PATIENT PRESENTS WITH AN IMPLANTABLE OR ATTACHED NEWS BROADCASTER: No RADIOLOGY DEPARTMENT: General X-ray: Exam(s) Completed: Spine X-Ray(s): Scoliosis Series PERIPHERAL IV DATA: Not applicable SIGNED BY: RT Jimbo(Michael) April 30, 2023 1:42 PM [facility] 04-30-2023 Note HNO ID: [id number] Author: KATHERINE KEITH MD Service: ? Author Type: Physician Type: Progress Notes Filed: 05/12/2023 08:04 Note Text: SPINE SURGERY OUTPATIENT CONSULT This is an in-person visit. Staff note: Previous decompression 2-5 with good central decompression, Advanced degenerative changes leading to LR stenosis and foraminal stenosis throughout L2-L5 ATP Fusion with perc screws, RBAEO reviewed in comprehensive detail, all questions were answered to stated satisfaction, patient elected to proceed Risks of surgery were discussed in detail with the patient. Risks of surgery discussed include but are not limited to, the risk of DVT, PE, and/or . Cardiovascular and pulmonary risk, as related to the patient's preoperative clearance and assessment by the perioperative team as well as anesthesia. The risk of neurological injury was discussed in great detail, including discussion of a spectrum of partial dysfunction through complete dysfunction. The risk of nerve root injury was discussed that may result in weakness, paralysis, sensory loss, and/or intractable pain and supplied nerve root that might either be transient and/or permanent in nature. The risk of compressive epidural hematoma and/or compressive epidural abscess was discussed with the patient that may or may not result in transient and/or permanent bowel and bladder dysfunction and/or transient and/or permanent lower extremity dysfunction such as weakness, paralysis, sensory loss, and/or intractable pain. The risk of instability status post surgery was discussed, the risk of superficial and deep infection was discussed. The risk of durotomy, and potential complications of spinal headache, and/or persistent leakage, resulting in the need for further surgery, and/or drain placement was discussed. The risk of no improvement in symptoms despite technically adequate decompression of the compressed structures was discussed in extreme detail. The risk of need for further surgery for any reason was discussed. The risk of complications related to fusion were discussed in detail. The risk of pseudoarthrosis was discussed. The risk of hardware failure including hardware pullout, crystal breakage, screw breakage was discussed. The risk of screw loosening was discussed. The risk of need for further surgery for hardware failure, pseudoarthrosis was discussed. The risk of screw misplacement resulting in radiculopathy or neurological injury was discussed. Discussed hip weakness and pain due to approach and other associated risks that are unique to lateral approach to the spine including but not limited to bowel injury, nerve root injury, psoas weakness, etc etc The risk of need for further surgery to alter trajectory of hardware was discussed. The risk of needing to extend the fusion cephalad and/or caudad and the reasoning behind this was discussed. Adjacent segment breakdown that may or may not be symptomatic was discussed. No guarantees were offered nor implied regarding final outcome status post surgery or presence or absence of complication perioperatively. After a thorough discussion, the patient had many appropriate questions, all questions were answered to the patient's stated satisfaction. The patient voiced excellent understanding of both the reasoning for offering surgery, the potential complications regarding this particular surgery, and has elected to proceed. We discussed the minimum criteria for elective surgery: A. Imaging fits with history and examination and has surgical correctable findings B. Conservative modalities have been trialed in a meaningful way that have failed to provide relief C. The pain is significant enough to interfere with QOL and undergoing an irreversible surgical procedure makes sense to the patient from a symptom severity standpoint A and B were confirmed by me, C was confirmed by the patient. With this in mind it is reasonable to proceed with: As above Katherine Keith MD SERVICE DATE: 04/30/2023 PCP: Ester Cain MD REFERRING PROVIDER: Tello Gaspar [id number] [facility] [id number] Consult requested for an opinion regarding the evaluation and treatment of Mr Rodriguez. My final impression and recommendations will be communicated back to the requesting physician by way of the shared medical record or letter via [place] mail. SUBJECTIVE Braden Rodriguez is a 68 year old male presenting with spouse. CHIEF COMPLAINT: Left Foot Drop, BLE L4 Numbness HISTORY OF PRESENT ILLNESS PRECIPITATING EVENT: Injury at home, sitting in low chair in February 2023 DURATION OF SYMPTOMS: Greater Than 6 Weeks 68M with 3 prior Lumbar decompressions for lumbar radiculopathy, all done at outside facilities. In 1999 he had a single level decompression which resolved his LLE radicular pain. In 2012 his sx returned but in the RLE, so a revision at (more content not included)... [facility] 04-30-2023 History of Presen t illness Narrative Images from the original note were not included. SPINE SURGERY OUTPATIENT CONSULT This is an in-person visit. Staff note: Previous decompression 2-5 with good central decompression, Advanced degenerative changes leading to LR stenosis and foraminal stenosis throughout L2-L5 ATP Fusion with perc screws, RBAEO reviewed in comprehensive detail, all questions were answered to stated satisfaction, patient elected to proceed Risks of surgery were discussed in detail with the patient. Risks of surgery discussed include but are not limited to, the risk of DVT, PE, and/or . Cardiovascular and pulmonary risk, as related to the patient's preoperative clearance and assessment by the perioperative team as well as anesthesia. The risk of neurological injury was discussed in great detail, including discussion of a spectrum of partial dysfunction through complete dysfunction. The risk of nerve root injury was discussed that may result in weakness, paralysis, sensory loss, and/or intractable pain and supplied nerve root that might either be transient and/or permanent in nature. The risk of compressive epidural hematoma and/or compressive epidural abscess was discussed with the patient that may or may not result in transient and/or permanent bowel and bladder dysfunction and/or transient and/or permanent lower extremity dysfunction such as weakness, paralysis, sensory loss, and/or intractable pain. The risk of instability status post surgery was discussed, the risk of superficial and deep infection was discussed. The risk of durotomy, and potential complications of spinal headache, and/or persistent leakage, resulting in the need for further surgery, and/or drain placement was discussed. The risk of no improvement in symptoms despite technically adequate decompression of the compressed structures was discussed in extreme detail. The risk of need for further surgery for any reason was discussed. The risk of complications related to fusion were discussed in detail. The risk of pseudoarthrosis was discussed. The risk of hardware failure including hardware pullout, crystal breakage, screw breakage was discussed. The risk of screw loosening was discussed. The risk of need for further surgery for hardware failure, pseudoarthrosis was discussed. The risk of screw misplacement resulting in radiculopathy or neurological injury was discussed. Discussed hip weakness and pain due to approach and other associated risks that are unique to lateral approach to the spine including but not limited to bowel injury, nerve root injury, psoas weakness, etc etc The risk of need for further surgery to alter trajectory of hardware was discussed. The risk of needing to extend the fusion cephalad and/or caudad and the reasoning behind this was discussed. Adjacent segment breakdown that may or may not be symptomatic was discussed. No guarantees were offered nor implied regarding final outcome status post surgery or presence or absence of complication perioperatively. After a thorough discussion, the patient had many appropriate questions, all questions were answered to the patient's stated satisfaction. The patient voiced excellent understanding of both the reasoning for offering surgery, the potential complications regarding this particular surgery, and has elected to proceed. We discussed the minimum criteria for elective surgery: A. Imaging fits with history and examination and has surgical correctable findings B. Conservative modalities have been trialed in a meaningful way that have failed to provide relief C. The pain is significant enough to interfere with QOL and undergoing an irreversible surgical procedure makes sense to the patient from a symptom severity standpoint A and B were confirmed by me, C was confirmed by the patient. With this in mind it is reasonable to proceed with: As above Katherine Keith MD SERVICE DATE: 04/30/2023 PCP: Ester Cain MD REFERRING PROVIDER: Tello Gaspar [id number] [facility] [place] [address] Consult requested for an opinion regarding the evaluation and treatment of Mr Rodriguez. My final impression and recommendations will be communicated back to the requesting physician by way of the shared medical record or letter via [place] mail. SUBJECTIVE Braden Rodriguez is a 68 year old male presenting with spouse. CHIEF COMPLAINT: Left Foot Drop, BLE L4 Numbness HISTORY OF PRESENT ILLNESS PRECIPITATING EVENT: Injury at home, sitting in low chair in February 2023 DURATION OF SYMPTOMS: Greater Than 6 Weeks 68M with 3 prior Lumbar decompressions for lumbar radiculopathy, all done at outside facilities. In 1999 he had a single level decompression which resolved his LLE radicular pain. In 2012 his sx returned but in the RLE, so a revision at the same level was done. This resolved his RLE pain. In 2018, he developed more stenosis with BLE radicular pain resulting in a revision L3-S1 decompression. This worked well until February 2023, when he sat in a low chair resulting in BLE L4 numbness (not pain) and left foot drop requiring AFO. Has since been in PT for 6 weeks which has not helped. Has taken medications and injections in the past for his issues. Failed conservative management thus far. XR and MR obtained listed below. Denies b/b changes. Does note changes in posture. Denies changes in dexterity, denies neck pain. Does have balance issues which he attributes to foot drop PAIN EVALUATION 04/28/2023 1006 Pain Level: 5 Pain Location: Leg-Left Description: Aching;Burning;Cramping;Dull;Num bness;Pulsating;Sharp;Shooting;S tabbing;Throbbing;Tingling Duration Amount of Time: 2 Duration Units: Months Frequency: Intermittent Intervention/Comfort measure: Medication;Exercise;Positioning Pain Radiation: to the left and right foot/feet Aggravating Factors: Extension, Change of position (sit to stand), Standing, Walking Alleviating Factors: Rest, His AFO Pain Ratio: Pain in the leg(s) is greater than in the back DERMATOMAL DISTRIBUTION: Right: L4 Left: L4 AMBULATORY STATUS: Impaired Community Distances ANTIPLATELET OR ANTICOAGULATION STATUS: No PREVIOUS CONSERVATIVE TREATMENTS: Has done 3 surgeries, injections, PT>6 weeks, OTC and Rx medications for his back issues since onset in 1999. Currently with subacute foot drop as stated above PREVIOUS SPINAL SURGERY: Listed above ACTIVE PROBLEM LIST BENIGN NEOPLASM SKIN NEC-exam Neoplasm of Uncertain Behavior of Skin Benign Neoplasm of Skin, Site Unspecified Other Seborrheic Keratosis PAST MEDICAL HISTORY Diagnosis Date Benign neoplasm of skin, site unspecified 08/2008 right anterior shoulder; Inflamed seborrheic keratosis 08/2008 left anterior axillary line No past surgical history on file. FAMILY HISTORY Problem Relation Age of Onset Cancer Father malignant melanoma Social History Tobacco Use Smoking status: Never Smokeless tobacco: Former Types: Chew Quit date: 1999 ALLERGIES Allergen Reactions Penicillins Rash MEDICATIONS: carvedilol (COREG) 12.5 mg tablet Take 12.5 mg by mouth two times a day with meals. tiZANidine (ZANAFLEX) 4 mg tablet Take 2 tablets by mouth daily at bedtime. lisinopril 10 mg ORAL Tab Take one(1) tablet daily. Fluorouracil 5 % TOPICAL Crea bid 15 days R and L lat face to behind ears as discussed--wait 2 wk before starting REVIEW OF SYSTEMS: (Aside from above) GENERAL: No weight loss or malaise MUSCULOSKELETAL: Negative for joint pain, swelling or muscle pain NEURO: No history of headaches, syncope, paralysis, seizures or tremors Patient Entered Questionnaires Spine Questions 04/28/2023 Pain Location: Leg Pain Duration: 1-3 months Symptoms from neck/cervical spine: No Employment Status: Sick leave or maternity leave Off work 1 month or more due to back/neck pain: Yes Applied for/receive disability/WC due to low back/neck pain Yes Involved in law suit/legal claim: No PROMIS Score Percentiles Physical Health 04/28/2023 Physical Function Percentile 2 Sleep Percentile 38 Fatigue Percentile 16* Pain Interference Percentile 7 PROMIS SOCIAL ROLE SCORE 04/28/2023 Social Role Satisfaction Percentile 5 PROMIS Global Health Scale 04/28/2023 Physical Health Percentile 15 Mental Health Percentile 9 Percentiles provide an indication of how the patient's score ranks in relation to the general population. Higher percentile rankings indicate better function/quality of life. 50th percentile is the average of the general population and indicates half of respondents had a worse score. Depression Screening: PHQ-9 04/28/2023 Score 7 PHQ-9 Self-harm Question 04/28/2023 Thoughts that you would be better off , or of hurting yourself in some way 0 PHQ-9 Self-Harm (Item 9) response options: 0 Not at all 1 Several days 2 More than half the days 3 Nearly every day PHQ-9 Levels: 0-4 No to mild depression 5-9 Mild depression 10-14 Moderate depression 15-19 Moderately severe depression 20-27 Severe depression OBJECTIVE: PHYSICAL EXAM BP 137/69 Pulse 78 Ht 182.9 cm (6') Wt 91.5 kg (201 lb 11.5 oz) SpO2 96% BMI 27.36 kg/m GENERAL APPEARANCE: Well nourished, well developed, and no apparent distress. NEURO PSYCH: Patient oriented to person, place, and time. Mood pleasant. Benign affect. MUSCULOSKELETAL VISUAL INSPECTION CERVICAL: WNL THORACIC: WNL LUMBAR: WNL MOTOR: 5/5 in all muscle groups. Except for 0/5 DF left and 2/5 EHL left SENSORY: Normal sensory exam GAIT: Abnormal. Requires AFO. Cannot heel walk or tandem safely without it REFLEXES: +2 to bilateral U/L extremities. PROPRIOCEPTION: Normal. LONG TRACT SIGNS: No clonus. No Hoffmans. Does have inverted reflex in the right hand, but normal reflexes otherwise without Marino STRAIGHT LEG TEST: Ipsilateral: Negative. Contralateral: Negative. L'HERMITTES SIGN: Negative. SPURLING'S TEST: Negative. NEURO TESTS: None DATA REVIEW [facility] records independently reviewed Imaging and outside records independently reviewed XR - LUMBAR DEXTROSCOLIOTIC CURVATURE WITH POSTSURGICAL AND DEGENERATIVE CHANGE. DECOMPRESSION L3-S1 (No fusion) MRI - Adequate decompression L3-S1 with some residual stenosis at L2-3. Multi-level degenerative discs from L2-S1. ASSESSMENT/PLAN (Z98.890) History of lumbar laminectomy for spinal cord decompression (primary encounter diagnosis) (M41.50) Degenerative scoliosis in adult patient (M54.50, G89.29) Chronic low back pain, unspecified back pain laterality, unspecified whether sciatica present Braden Rodriguez has a condition that requires further workup. We will need a CT to assess bone structure given post-surgical changes. We will also need standing Scoliosis XR to better assess total alignment/balance in the coronal and sagittal planes. 1. Imaging: Scoliosis X-Ray and Lumbar CT Without Contrast Preoperative planning, Postop recurring or worsening symptoms, Symptoms of neuro deficit or red flag symptoms listed in HPI, and Failure of conservative treatments as listed in HPI 2. Follow up: Following above Imaging Ordered: For possible Lumbar Spinal Stenosis due to presence of red flags detailed in HPI. I reviewed the information obtained and documented by the fellow. I examined the patient and evaluated all available films and pertinent documents. We discussed the case and I agree with the plans as outlined in this note. Jan Leon MD Fellow SIGNATURE: Katherine Keith MD PATIENT NAME: Braden Rodriguez DATE: April 30, 2023 TIME: 11:51 AM PAGER: documented in this encounter [facility] 04-30-2023 History of Presen t illness Narrative Radiology Service Progress Note PATIENT NAME: Braden Rodriguez DATE OF SERVICE: April 30, 2023 TIME: 10:47 AM PATIENT IDENTITY VERIFICATION COMPLETED USING TWO (2) IDENTIFIERS: Name and Date of confirmed by patient verbally. FALL SCREENING: Has the patient had 2 falls in the last year or 1 fall with injury or currently using an Ambulatory Assistive Device (Walker, Cane, Wheelchair, Crutches, etc.)? No PATIENT GENDER DATA: Male PATIENT RELEVANT IMPLANT DATA REVIEWED: Not Applicable PATIENT PRESENTS WITH AN IMPLANTABLE OR ATTACHED NEWS BROADCASTER: No RADIOLOGY DEPARTMENT: General X-ray: Exam(s) Completed: Spine X-Ray(s): Lumbar AP / LAT / L5-S1 / FLEX-EXT PERIPHERAL IV DATA: Not applicable SIGNED BY: RT Guillermo(R) April 30, 2023 10:47 AM documented in this encounter [facility] 04-30-2023 Note HNO ID: [id number] Author: RIN MAYBERRY RT(R) Service: Radiology Author Type: Technologist Type: Progress Notes Filed: 04/30/2023 10:47 Note Text: Radiology Service Progress Note PATIENT NAME: Braden Rodriguez DATE OF SERVICE: April 30, 2023 TIME: 10:47 AM PATIENT IDENTITY VERIFICATION COMPLETED USING TWO (2) IDENTIFIERS: Name and Date of confirmed by patient verbally. FALL SCREENING: Has the patient had 2 falls in the last year or 1 fall with injury or currently using an Ambulatory Assistive Device (Walker, Cane, Wheelchair, Crutches, etc.)? No PATIENT GENDER DATA: Male PATIENT RELEVANT IMPLANT DATA REVIEWED: Not Applicable PATIENT PRESENTS WITH AN IMPLANTABLE OR ATTACHED NEWS BROADCASTER: No RADIOLOGY DEPARTMENT: General X-ray: Exam(s) Completed: Spine X-Ray(s): Lumbar AP / LAT / L5-S1 / FLEX-EXT PERIPHERAL IV DATA: Not applicable SIGNED BY: RT Guillermo(R) April 30, 2023 10:47 AM [facility] 03-21-2023 Note HNO ID: [id number] Author: ALFONSO LOYD PA-C Service: ? Author Type: Physician Sausage Smoker Type: Progress Notes Filed: 03/21/2023 05:56 Note Text: Requesting to see Dr. Keith Left leg pain, trouble walking, numbness in the leg, weakness. He has tried: PT, NSAID, steroids, MR, Tramadol Previous surgery x 3 at [facility] Lumbar MRI report with severe central stenosis of L3-4 and L4-5. XR ordered for an appointment with Dr. Keith. [facility] 03-21-2023 History of Presen t illness Narrative Requesting to see Dr. Keith Left leg pain, trouble walking, numbness in the leg, weakness. He has tried: PT, NSAID, steroids, MR, Tramadol Previous surgery x 3 at [facility] Lumbar MRI report with severe central stenosis of L3-4 and L4-5. XR ordered for an appointment with Dr. Keith. Patient name: Braden Rodriguez Are you being referred by a Center for [facility] Provider or Pain Management Provider at [facility]? No If answer is YES please schedule directly with surgeon, triage does not need to be completed. Is this a self-referral No If not, who is the Referring Provider Dr. Tello Gaspar Is this a 2nd opinion from another spine surgeon? Yes Were you offered surgery? No MRI/CT/myelogram within 12 months? Yes If NO , please refer to medical spine or PCP to complete above imaging, triage does not need to be completed If YES, please ask for the name/address of the facility where the MRI/CT/myelogram was completed: MRI [facility] [address] [id number] MRI/CT/myelogram viewable in Epic: No If not, please provide [phone] to fax in imaging reports for review. Also, please inform patient to hand carry imaging disc to appointment. XR (spine) within 12 months: Yes If YES, please ask for the name/address of the facility where the XR was completed: Dr. Tello Gaspar MD [address], [place] [address] Dr. Davis's patients: Have you had previous [...] completed Starting PT 03/20/2023 for drop foot [facility] [address] [place] [address] Have you tried any other kinds of [...] where the surgery was completed: 1999 laminectomy [facility] 2012 lumbar surgery [facility] 2019 lumbar surgery [facility] Additional Comments [phone] documented in this encounter [facility] 03-19-2023 Note HNO ID: [id number] Author: ?, ?, ? Service: ? Author Type: ? Type: Progress Notes Filed: 03/21/2023 05:56 Note Text: Patient name: Braden Rodriguez Are you being referred by a [facility] for [facility] Health Provider or Pain Management Provider at [facility]? No If answer is YES please schedule directly with surgeon, triage does not need to be completed. Is this a self-referral No If not, who is the Referring Provider Dr. Tello Gaspar Is this a 2nd opinion from another spine surgeon? Yes Were you offered surgery? No MRI/CT/myelogram within 12 months? Yes If NO , please refer to medical spine or PCP to complete above imaging, triage does not need to be completed If YES,? please ask for the name/address of the facility where the MRI/CT/myelogram was completed: MRI [facility] [place] [facility] [address] [place] [address] MRI/CT/myelogram viewable in Epic: No If not, please provide [phone] to fax in imaging reports for review. Also, please inform patient to hand carry imaging disc to appointment. XR (spine) within 12 months: Yes If YES,? please ask for the name/address of the facility where the XR was completed: Dr. Tello Gaspar MD [address], [place] [address] Dr. Davis's patients: Have you had previous [...] completed Starting PT 03/20/2023 for drop foot [facility] [address] [place] [address] Have you tried any other kinds of [...] where the surgery was completed: 1999 [place] [facility] [place] [facility] 2019 lumbar surgery [facility] Additional Comments [phone] [facility] 12-05-2022 Hospital Discharg e instructions Patient Education 12/05/2022 12:42:33 Prostate Cancer [...] treatment? Where to find more information The [employer]: www.cancer.org [employer] Association: www.auanet.org Contact a health care [...] provider. Document Revised: 08/20/2021 Document Reviewed: 08/20/2021 Elsevier Patient Education 2022 [employer]. Follow Up Care 11/27/2022 14:43:00 With:Kahlil JERNIGAN, MARLENA Salmon, URO Address: When: Unknown [facility] 10-30-2022 Hospital Discharg e instructions Patient Education 10/30/2022 11:02:30 Prostate Cancer [...] treatment? Where to find more information The [place]: www.cancer.org [employer] U[employer] Association: www.auanet.org Contact a health care [...] provider. Document Revised: 08/20/2021 Document Reviewed: 08/20/2021 [employer] Patient Education 2022 [employer] Follow Up Care 09/04/2022 08:48:35 With:Kahlil JERNIGAN, Shae Powell URLew, URO Address: When:Within 2 Month(s) Comments:w/PSA [facility] Hospital Discharg e instructions Patient Education 09/04/2022 08:36:45 Prostate Cancer [...] treatment? Where to find more information The [employer]: www.cancer.org [employer] U[employer] Association: www.auanet.org Contact a health care [...] provider. Document Revised: 08/20/2021 Document Reviewed: 08/20/2021 [employer] Patient Education 2022 [employer]. Follow Up Care 08/26/2022 10:02:45 With:Kahlil JERNIGAN, MARLENA Salmon URO Address: When:Within 4 Week(s) Comments:w/ PSA [facility] 05-07-2022 Hospital Discharg e instructions Follow Up Care 05/07/2022 15:08:01 With:VAMSI JERNIGAN, OJ Kraus Address: [place] [address]- When: only if needed General [facility] [place] 04-29-2022 Note Patient: LISETTE RODRIGUEZ Age: 67 years Sex: Male : 1955 Associated Diagnoses: None Author: Camryn AGUSTIN MD Subjective no changes to H & P [facility] Comment on above: Result Comment: Elec tronically Signed By: Camryn AGUSTIN MD\.br\Date and Time Signed: 04/29/22 08:33 EST 04-16-2022 Note [id number]:127 [facility] 04-03-2022 Note Chief Complaint consultation for ventral hernia HPI Staff 67 year old male presents on consultation from [place] [facility] for ventral hernia. Presented to ED [...] htn, lumbar radiculopathy, h/o SVT, referred from [facility] ED for possible abd wall hernia; [...] Daily, Not taki (more content not included)... [facility] Comment on above: Result Comment: Elec tronically Signed By: Camryn AGUSTIN MD\.br\Date and Time Signed: 04/03/22 16:28 EST Evaluation + Plan note No data available for this section General Surgery [place] Evaluation + Plan note Future Appointments Appointment Date:05/21/2022 02:40:00 PM Scheduled Provider:Camryn AGUSTIN MD Location:[facility] Appointment Type: Post Op 15 General Surgery [place] Evaluation + Plan note Future Appointments Appointment Date:09/24/2022 01:40:00 PM Scheduled Provider:[facility]USTIN [facility]: Established 15 Appointment Date:09/25/2022 08:45:00 AM Scheduled Provider:Shae Guillory MD Location:[facility] Appointment Type:URO Office Visit Diagnostic Tests PendingPSA Total 09/04/22PSA Free & Total 09/04/[address] [facility] Plan note Future Appointments Appointment Date:01/08/2023 09:00:00 AM Scheduled Provider:Shae Guillory MD Location:[facility] Appointment Type:URO Office Visit Diagnostic Tests PendingPSA Free & Total 10/30/22 [facility] Evaluation + Plan note Future Appointments Appointment Date:04/23/2023 09:45:00 AM Scheduled Provider:Shae Guillory MD Location:[facility] Appointment Type:URO Office Visit Diagnostic Tests PendingPSA Free & Total 12/05/22 [facility] Evaluation note No assessment inform ation available [facility] Work Phone: Evaluation note Diagnosis Spinal stenosis, lumbar region with neurogenic claudication- Primary [facility] History of lumbar laminectomy for spinal cord decompression Other postprocedural status Degenerative scoliosis in adult patient Chronic low back pain, unspecified back pain laterality, unspecified whether sciatica present [facility] Diagnosis Spinal stenosis, lumbar region with neurogenic claudication [facility] Diagnosis Chronic low back pain, unspecified back pain laterality, unspecified whether sciatica present [facility] History of lumbar laminectomy for spinal cord decompression- Primary Other postprocedural status Degenerative scoliosis in adult patient Chronic low back pain, unspecified back pain laterality, unspecified whether sciatica present [facility] History of laminectomy- Primary Other postprocedural status Degenerative scoliosis in adult patient Pre-op testing Preoperative examination, unspecified Iron deficiency anemia, unspecified iron deficiency anemia type History of laminectomy Other postprocedural status Degenerative scoliosis in adult patient Pre-op testing Preoperative examination, unspecified [facility] Pre-op exam- Primary Preoperative examination, unspecified Primary hypertension Unspecified essential hypertension SVT (supraventricular tachycardia) (HCC) Other specified cardiac dysrhythmias History of penicillin allergy Personal history of allergy to penicillin History of laminectomy Other postprocedural status Degenerative scoliosis in adult patient Pre-op testing Preoperative examination, unspecified documented in this encounter [facility] Discharge instructions No data available for this section General Surgery [employer] Progress note No data available for this section General Surgery [employer] Reason for referral (narrative)* Diagnostic Procedure Only (Routine) - Pending Review Specialty Diagnoses / Procedures Referred By Contac t Referred To Contact XR IMAGING Diagnoses Spinal stenosis, lumbar region with neurogenic claudication Procedures XR LUMBAR MOTION 4V AP/LAT/ FLEX/EXT RADEX SPINE LUMBOSACRAL MINIMUM 4 VIEWS Alfonso Loyd PA-C [address] [phone] Xr [facility] [place] [address] Referral ID Status Reason Start Date Expiration Date Visits Requested Visits Authorized [id number] Pending Review Auto-Generat ed Referral 03/21/2023 04/19/2024 1 1 [facility] for referral (narrative)* Diagnostic Procedure Only (Routine) - Closed Specialty Diagnoses / Procedures Referred By Contac t Referred To Contact XR IMAGING Diagnoses History of lumbar laminectomy for spinal cord decompression Degenerative scoliosis in adult patient Chronic low back pain, unspecified back pain laterality, unspecified whether sciatica present Procedures XR SCOLIOSIS PA STAND/LAT 2V RADEX ENTIR THRC LMBR CRV SAC SPI W/SKULL 2/3 Katherine Keith MD [address] [phone] [facility] [place] [address] Referral ID Status Reason Start Date Expiration Date V isits Requested Visits Authorized [id number] Closed Auto-Generate d Referral 04/30/2023 05/29/2024 1 1 [facility] for referral (narrative)* Diagnostic Procedure Only (Routine) - Closed Specialty Diagnoses / Procedures Referred By Contac t Referred To Contact XR IMAGING Diagnoses Spinal stenosis, lumbar region with neurogenic claudication Procedures XR LUMBAR MOTION 4V AP/LAT/ FLEX/EXT RADEX SPINE LUMBOSACRAL MINIMUM 4 VIEWS Alfonso Loyd PA-C [address] [place] [address] [facility] Referral ID Status Reason Start Date Expiration Date V isits Requested Visits Authorized [id number] Closed Auto-Generate d Referral 03/21/2023 04/19/2024 1 [facility] Procedure (Routine) - Pending Review Specialty Diagnoses / Procedures Referred By Lencho atkins Referred To [facility] Diagnoses Pre-op exam Procedures ECG COMPLETE ECG ROUTINE ECG W/LEAST 12 LDS W/I&R Sanam Gill PA-C [address] [place] [address] [facility] [address] [phone] Referral ID Status Reason Start Date Expiration Date Visits Requested Visits Authorized [id number] Pending Review Auto-Generat ed Referral 08/06/2023 08/05/2024 1 1 [facility] Summary Purpose Family History No Family [...] and Reason for Visit Chief Complaint r97.20 Reason for Referral Specialty Diagnoses / Procedures Referred By Lencho atkins Referred To Contact Diagnoses History of laminectomy Degenerative scoliosis in adult patient Pre-op testing Procedures REFER TO PACC - PRE ANESTHESIA CONSULTATION CLINIC OFFICE/OUTPATIENT [facility] MDM 60 MINUTES Alfonso Loyd PA-C [address] [place] [address] Referral ID Status Reason Start Date Expiration Date Visits Requested Visits Authorized [id number] Authorized PCP Requested Referral 07/11/2023 07/10/2024 1 1 Specialty Diagnoses / Procedures Referred By Contac t Referred To Contact XR IMAGING Diagnoses History of laminectomy Degenerative scoliosis in adult patient Procedures XR LUMBAR LIMITED 2V AP/LAT RADEX SPINE LUMBOSACRAL 2/3 VIEWS Alfonso Loyd PA-C [address] [place] [address] [facility] Referral ID Status Reason Start Date Expiration Date Visits Requested Visits Authorized [id number] Pending Review Auto-Generat ed Referral 07/11/2023 08/09/2024 1 1 Specialty Diagnoses / Procedures Referred By Contac t Referred [facility] Diagnoses History of lumbar laminectomy for spinal cord decompression Degenerative scoliosis in adult patient Chronic low back pain, unspecified back pain laterality, unspecified whether sciatica present Procedures EMG(NEURO/NI) NERVE CONDUCTION STUDIES 9-10 STUDIES Katherine Keith MD [address] [place] [address] [facility] [address] [place] [address] Referral ID Status Reason Start Date Expiration Date Visits Requested Visits Authorized [id number] Authorized Auto-Generat ed Referral 05/06/2023 03/09/2024 1 1 Specialty Diagnoses / Procedures Referred By Contac t Referred To Contact CT IMAGING Diagnoses Chronic low back pain, unspecified back pain laterality, unspecified whether sciatica present Procedures CT LUMBAR SPINE WO IVCON CT LUMBAR SPINE W/O CONTRAST MATERIAL Katherine Keith MD [address] [phone] [address] [facility] [place] [address] Referral ID Status Reason Start Date Expiration Date V isits Requested Visits Authorized [id number] Closed Auto-Generate d Referral 04/30/2023 05/29/2024 1 1 Specialty Diagnoses / Procedures Referred By Contac t Referred To Contact XR IMAGING Diagnoses History of lumbar laminectomy for spinal cord decompression Degenerative scoliosis in adult patient Chronic low back pain, unspecified back pain laterality, unspecified whether sciatica present Procedures XR SCOLIOSIS PA STAND/LAT 2V RADEX ENTIR THRC LMBR CRV SAC SPI W/SKULL 2/3 VW Katherine Keith MD [address] [place] [address] [place] [address] Referral ID Status Reason Start Date Expiration Date V isits Requested Visits Authorized [id number] Closed Auto-Generate d Referral 04/30/2023 05/29/2024 1 1 Specialty Diagnoses / Procedures Referred By Contac t Referred To Contact CT IMAGING Diagnoses Chronic low back pain, unspecified back pain laterality, unspecified whether sciatica present Procedures CT LUMBAR SPINE WO IVCON CT LUMBAR SPINE W/O CONTRAST MATERIAL Katherine Keith MD [address] [phone] [place] [address] Referral ID Status Reason Start Date Expiration Date V isits Requested Visits Authorized [id number] Closed Auto-Generate d Referral 04/30/2023 05/29/2024 1 1 Additional Source Comments (unrecognized sect ion and content) No Status Records FoundNo Status Records FoundNo Status Records FoundNo Status Records FoundNo Status Records FoundNo Status Records FoundNo Status Records FoundNo Status Records Found INFORMATION SOURCE (unrecogn ized section and content) DATE CREATED AUTHOR 05/16/2020 [facility] DATE CREATED AUTHOR AUTHOR'S ORGANIZ ATION 09/06/2020 [facility] DATE CREATED AUTHOR AUTHOR'S ORGANIZ ATION 05/18/2022 [facility] DATE CREATED AUTHOR AUTHOR'S ORGANIZ ATION 06/13/2022 [facility] DATE CREATED AUTHOR AUTHOR'S ORGANIZ ATION 11/06/2022 [facility] DATE CREATED AUTHOR AUTHOR'S ORGANIZ ATION 03/09/[address] [facility] DATE CREATED AUTHOR AUTHOR'S ORGANIZ ATION 08/18/2023 [facility] DATE CREATED AUTHOR AUTHOR'S ORGANIZ ATION 08/27/2023 [facility] Patient Care team informatio n (unrecognized section and content) Team Status: Active Member Role Status Dates Ester Cain MD Primary Care Provider Active Team Status: Inactive Member Role Status Dates Ester Cain MD Primary Care Provider Active Shae Guillory MD Attending Provider Active F[employer]igator And Sterilizer Relationship Specialty Start Date End Date Ester Cain MD PCP - General 05/05/06 [employer]izer Relationship Specialty Start Date End Date Ester Cain MD PCP - General 05/05/06 [employer]igator And Sterilizer Relationship Specialty Start Date End Date Ester Cain MD PCP - General 05/05/06 F[employer]igator And Sterilizer Relationship Specialty Start Date End Date Ester Cain MD PCP - General 05/05/06 Fumigator And Sterilizer Relationship Specialty Start Date End Date Ester Cain MD PCP - General 05/05/06 Fumigator And Sterilizer Relationship Specialty Start Date End Date Ester Cain MD PCP - General 05/05/06 Fumigator And Sterilizer Relationship Specialty Start Date End Date Ester Cain MD PCP - General 05/05/06 [employer] Relationship Specialty Start Date End Date Ester Cain MD PCP - General 05/05/06 [employer] Relationship Specialty Start Date End Date Ester Cain MD PCP - General 05/05/06 [employer] Relationship Specialty Start Date End Date Ester Cain MD PCP - General 05/05/06 [employer] Relationship Specialty Start Date End Date Ester Cain MD PCP General 05/05/06 [employer] Relationship Specialty Start Date End Date Ester Cain MD PCP - General 05/05/06 Goals (unrecognized [...] or prosecute any alcohol or drug abuse patient.[facility] the event this information is protected by the Federal Confidentiality of Alcohol and Drug Abuse Patient Records regulations: The Federal rules restrict any use of the information to criminally investigate or prosecute any alcohol or drug abuse patient.[facility]In the event this information is protected by the Federal Confidentiality of Alcohol and Drug Abuse Patient Records regulations: The Federal rules restrict any use of the information to criminally investigate or prosecute any alcohol or drug abuse patient.[facility] HospitalIn the event this information is protected by the Federal Confidentiality of Alcohol and Drug Abuse Patient Records regulations: The Federal rules restrict any use of the information to criminally investigate or prosecute any alcohol or drug abuse patient.[facility]In the event this information is protected by the Federal Confidentiality of Alcohol and Drug Abuse Patient Records regulations: The Federal rules restrict any use of the information to criminally investigate or prosecute any alcohol or drug abuse patient.[facility] HospitalIn the event this information is protected by the Federal Confidentiality of Alcohol and Drug Abuse Patient Records regulations: The Federal rules restrict any use of the information to criminally investigate or prosecute any alcohol or drug abuse patient.[facility] HospitalIn the event this information is protected by the Federal Confidentiality of Alcohol and Drug Abuse Patient Records regulations: The Federal rules restrict any use of the information to criminally investigate or prosecute any alcohol or drug abuse patient.[facility]In the event this information is protected by the Federal Confidentiality of Alcohol and Drug Abuse Patient Records regulations: The Federal rules restrict any use of the information to criminally investigate or prosecute any alcohol or drug abuse patient.[facility] HospitalIn the event this information is protected by the Federal Confidentiality of Alcohol and Drug Abuse Patient Records regulations: The Federal rules restrict any use of the information to criminally investigate or prosecute any alcohol or drug abuse patient.[facility] HospitalIn the event this information is protected by the Federal Confidentiality of Alcohol and Drug Abuse Patient Records regulations: The Federal rules restrict any use of the information to criminally investigate or prosecute any alcohol or drug abuse patient.[facility] HospitalIn the event this information is protected by the Federal Confidentiality of Alcohol and Drug Abuse Patient Records regulations: The Federal rules restrict any use of the information to criminally investigate or prosecute any alcohol or drug abuse patient.[facility] HospitalIn the event this information is protected by the Federal Confidentiality of Alcohol and Drug Abuse Patient Records regulations: The Federal rules restrict any use of the information to criminally investigate or prosecute any alcohol or drug abuse patient.[facility] HospitalIn the event this information is protected by the Federal Confidentiality of Alcohol and Drug Abuse Patient Records regulations: The Federal rules restrict any use of the information to criminally investigate or prosecute any alcohol or drug abuse patient.[facility] HospitalIn the event this information is protected by the Federal Confidentiality of Alcohol and Drug Abuse Patient Records regulations: The Federal rules restrict any use of the information to criminally investigate or prosecute any alcohol or drug abuse patient.[facility] HospitalIn the event this information is protected by the Federal Confidentiality of Alcohol and Drug Abuse Patient Records regulations: The Federal rules restrict any use of the information to criminally investigate or prosecute any alcohol or drug abuse patient.[facility] HospitalIn the event this information is protected by the Federal Confidentiality of Alcohol and Drug Abuse Patient Records regulations: The Federal rules restrict any use of the information to criminally investigate or prosecute any alcohol or drug abuse patient.[facility] HospitalIn the event this information is protected by the Federal Confidentiality of Alcohol and Drug Abuse Patient Records regulations: The Federal rules restrict any use of the information to criminally investigate or prosecute any alcohol or drug abuse patient.[facility] HospitalIn the event this information is protected by the Federal Confidentiality of Alcohol and Drug Abuse Patient Records regulations: The Federal rules restrict any use of the information to criminally investigate or prosecute any alcohol or drug abuse patient.[facility] HospitalIn the event this information is protected by the Federal Confidentiality of Alcohol and Drug Abuse Patient Records regulations: The Federal rules restrict any use of the information to criminally investigate or prosecute any alcohol or drug abuse patient.[facility] Reason for Visit (unrecogniz ed section and content) Reason Comments Radio Gen A21 Specialty Diagnoses / Procedures Referred By Contac t Referred To Contact XR IMAGING Diagnoses History of lumbar laminectomy for spinal cord decompression Degenerative scoliosis in adult patient Chronic low back pain, unspecified back pain laterality, unspecified whether sciatica present Procedures XR SCOLIOSIS PA STAND/LAT 2V RADEX ENTIR THRC LMBR CRV SAC SPI W/SKULL 2/3 VW Katherine Keith MD [address] [place] [address] [facility] [place] [address] Referral ID Status Reason Start Date Expiration Date V isits Requested Visits Authorized [id number] Closed Auto-Generate d Referral 04/30/2023 05/29/2024 1 1 Reason Comments Radio Main J1 Specialty Diagnoses / Procedures Referred By Contac t Referred To Contact XR IMAGING Diagnoses Spinal stenosis, lumbar region with neurogenic claudication Procedures XR LUMBAR MOTION 4V AP/LAT/ FLEX/EXT RADEX SPINE LUMBOSACRAL MINIMUM 4 VIEWS Alfonso Loyd PA-C [address] [place] [id number] [facility] [place] [address] Referral ID Status Reason Start Date Expiration Date V isits Requested Visits Authorized [id number] Closed Auto-Generate d Referral 03/21/2023 04/19/2024 1 1 Specialty Diagnoses / Procedures Referred By Contac t Referred To Contact CT IMAGING Diagnoses Chronic low back pain, unspecified back pain laterality, unspecified whether sciatica present Procedures CT LUMBAR SPINE WO IVCON CT LUMBAR SPINE W/O CONTRAST MATERIAL Katherine Keith MD [address] [place] [id number] [place] [id number] Referral ID Status Reason Start Date Expiration Date V isits Requested Visits Authorized [id number] Closed Auto-Generate d Referral 04/30/2023 05/29/2024 1 1 Reason Comments New Patient Reason Comments Schedule Surgery Reason Comments Forms Reason Comments Patient Update Reason Comments Blood Management Reason Comments Follow Up FOR RECORDS PERTAINING TO PATIENTS WHO ARE [...] BE BASED ON THE PRIMARY CLINICAL RECORDS. [facility] [employer] [facility]. provides no warranty or guarantee of the accuracy or completeness of information in this document.
[2023-08-28 11:59] LABS: Hematocrit 35.1 % (42.0-54.0); Hemoglobin 11.5 g/dL (14.0-18.0); Mean Corpuscular HGB Conc 32.8 g/dL (29.9-35.2); Mean Corpuscular Hemoglobin 31.7 pg (25.9-34.0); Mean Corpuscular Volume 96.7 fL (80.0-94.0); Mean Platelet Volume 9.4 fL (9.5-13.5); Platelet Count 406 10^3/uL (150-450); Red Blood Count 3.63 10^6/uL (4.70-6.10); Red Cell Distribution Width 13.2 % (11.0-15.0)
[2023-08-28 12:31] LABS: Alanine Aminotransferase 49 U/L (16-63); Albumin Level 3.2 g/dL (3.4-5.0); Alkaline Phosphatase 97 U/L (46-116); Anion Gap 11.8; Aspartate Amino Transferase 45 U/L (15-37); BUN Creatinine Ratio 22.3; Bilirubin Total 1.1 mg/dL (0.2-1.0); Carbon Dioxide 31.5 mmol/L (21.0-32.0); Chloride 100 mmol/L (98-107); Estimated GFR (African America >60 (>=60); Estimated GFR (Non-African Ame >60 (>=60); Globulin 3.2 g/dL; Glucose 113 mg/dL (74-106); Potassium 4.3 mmol/L (3.5-5.1); Sodium 139 mmol/L (136-145); Total Protein 6.4 g/dL (6.4-8.2)
[2023-08-28 12:55] LABS: Band Neutrophils Absolute 0.1 10^3/uL (0.0-0.3); Basophils Abs Manual 0.26 10^3/uL (0.00-0.10); Lymphocytes Absolute Manual 2.86 10^3/uL (1.20-3.80); Metamyelocytes Absolute Manual 0.78; Monocytes Absolute Manual 1.43 10^3/uL (0.30-0.80); Myelocytes Absolute Manual 0.13; Segmented Neut Absolute Manual 7.41 10^3/uL (1.4-6.5)
== END 2023-08-28 11:41 | disposition home or self-care (01) ==
LOC: LAB 11:42
PROVIDERS: PCP Family Medicine; Visit Provider Family Medicine
DX: R53.83 Other fatigue (principal)
CPT/HCPCS: 36415; 80053; 85007; 85027

== ENCOUNTER 2023-10-16 06:58 | Outpatient (OUT) | payer OTHER, SELFPAY ==
--- OUTSIDE RECORDS SUMMARY | 2023-10-16 07:03 | XMS_ITS | CCD ---
Author Organization [facility] Care Team Providers Care Experimental Display Builder Name Role Phone ESTER CAIN Referring Unavailable ESTER CAIN Primary Care Unavailable DOMENIC KOHLER Attending Unavailable DOMENIC KOHLER Admitting Unavailable Ester Cain Primary Care Physician [phone] Dr. Ester Cain Primary Care Unavail able [...] Unavailable MD Ester Cain Primary Care Provider [phone] MD Shae Guillory Attending Provider Hoy, Ester M Primary Care Unavailable Lue, Shae M [...] Unavailable Ester Cain MD Primary Care Provider [phone] Ester Cain MD Primary Care Provider [phone] PELLE, KATHERINE Referring Unavailable HOY, ESTER M Primary Care Unavailable PELLE, KATHERINE Referring Unavailable HOY, ESTER M Primary Care Unavailable BONUS, ALFONSO M Referring Unavailable HOY, ESTER M Primary Care Unavailable Katherine Sagar JERNIGAN Md Unavailable Unavailable HOY, ESTER M Primary Care Unavailable HOY, ESTER M Primary Care Unavailable PELLE, KATHERINE Referring Unavailable HOY, ESTER M Primary Care Unavailable BONUS, ALFONSO Attending Unavailable PELLE, KATHERINE Referring Unavailable PELLE, KATHERINE Admitting Unavailable PELLE, KATHERINE Attending Unavailable HOY, ESTER M Primary Care Unavailable PELLE, KATHERINE Admitting Unavailable HOY, ESTER M Primary Care Unavailable PELLE, KATHERINE Attending Unavailable HOY, ESTER M Primary Care Unavailable CHRISTIANNE ZIEGLER Admitting Unavailable PELLE, KATHERINE Attending Unavailable HOY, ESTER M Primary Care Unavailable HOY, ESTER M Primary Care Unavailable HOY, ESTER M Primary Care Unavailable BONUS, ALFONSO Referring Unavailable HOY, ESTER M Primary Care Unavailable HOY, ESTER M Primary Care Unavailable TELLO GASPAR Referring Unavailable PELLE, KATHERINE Attending Unavailable PELLE, KATHERINE Referring Unavailable HOY, ESTER M Primary Care Unavailable PELLE, KATHERINE Referring Unavailable HOY, ESTER M Primary Care Unavailable Allergies Allergy Classification Reported Allergen(s) Allergy Type Date of Onset Reaction(s) Facility Penicillins (antibiotic) (4 sources) Penicillins Drug Allergy 7 Rash [facility] Repository (7 sources) Penicillin; Translations: [penicillin] Drug Allergy Eruption of skin (disorder) General Surgery [facility] (3 sources) Penicillins; Translations: [PENICILLINS] Drug allergy (disorder) 7 [facility] Repository (1 source) Unable to Assess Drug allergy (disorder) 3 [facility] Repository (1 source) No Known Medication Allergies; Translations: [No Known Medication Allergies] Propensity to adverse reactions (disorder) [facility] Repository (20 sources) Penicillins Propensity to adverse reactions 7 Rash [facility] Medications Current Medications Medication Drug Class(es) Dates Sig (Normalized) Sig (Original) acetaminophen 325 mg oral tablet (20 sources) Start: 10-04-2023 take 2 tablets enteral route every six hours as needed acetaminophen (TYLENOL) 325 mg tablet 2 tablets by ORAL/FEEDING TUBE route every 6 hours as needed for pain. 0 10/04/2023 Active Start: 08-22-2023 take 2 tablets by mo uth every four hours acetaminophen (TYLENOL) 325 mg tablet 2 tablets by ORAL/FEEDING TUBE route every 4 hours. 0 08/22/2023 Active acetaminophen 325 mg / HYDROcodone bitartrate 5 mg oral tablet (6 sources) Opioid Agonist Start: 09-11-2022 take 1 tablet by mouth every eight hours as needed for pain acetaminophen-hydrocodone 325 mg-5 mg oral tablet 1 tab(s), Oral, q8hr as needed for pain, Refill(s) 0 Start Date: 09/11/22 Status: Ordered Start: 09-26-2020 take 1 tablet by raya th every eight hours as needed for pain acetaminophen-hydrocodone 300 mg-5 mg or al tablet 1 tab(s), Oral, q8hr as needed for pain, Refill(s) 0 Start Date: 09/26/20 Status: Ordered carvedilol 25 mg oral tablet (20 sources) alpha-Adrenergic Janak, beta-Adrenergic Janak Start: 10-04-2023 End: 11-03-2023 take 1 tablet by mouth twice daily at mealtime carvedilol (COREG) 25 mg tablet Take 1 tablet by mouth two times a day with meals. 60 tablet 0 10/04/2023 11/03/2023 Active Start: 03-11-2023 take 1 tablet by raya th twice daily at mealtime carvedilol (COREG) 12.5 [...] Daily, Prophylaxis Start Date: 04/22/22 Status: Ordered diclofenac sodium 0.01 mg/mg topical gel (11 sources) Nonsteroidal Anti-inflammatory Drug Start: End: diclofenac (VOLTAREN ARTHRITIS PAIN) 1 % topical gel Apply 2 g to affected area two times a day. 120 g 1 09/12/2023 11/11/2023 Active docusate sodium 50 mg / sennosides, [facility] 8.6 mg oral tablet (20 sources) Start: take 2 tablets by mouth twice daily senna-docusate (SENNA-S) 8.6-50 mg per tablet Take 2 tablets by mouth two times a day. 20 tablet 0 08/22/2023 Active Fish Oils (3 sources) Start: take 1 capsule by mouth once daily Fish Oil 1 cap, Oral, Daily, Prophylaxis Start Date: 04/22/22 Status: Ordered furosemide 40 mg oral tablet (2 sources) Loop Diuretic take 1 tablet by mouth once daily furosemide (LASIX) 40 mg tablet Take 40 mg by mouth once daily. 0 Active gabapentin 300 mg oral capsule (12 sources) Anti-epileptic Agent Start: End: take 1 capsule by mouth every eight hours gabapentin (NEURONTIN) 300 mg capsule Take 1 capsule by mouth every 8 hours for 30 days. 90 capsule 0 10/09/2023 11/08/2023 Active isoniazid 300 mg oral tablet (1 source) Antimycobacterial Start: take 1 tablet by mouth once daily isoniazid 300 mg Tab 300 mg = 1 tab(s), Oral, Daily, Refills(s) 0 Start Date: 09/26/20 Status: Ordered lidocaine 0.05 mg/mg medicated patch (12 sources) Antiarrhythmic, Amide Local Anesthetic Start: End: lidocaine (LIDODERM) 5 % Take as instructed on package 10 Patch 1 10/09/2023 Active lisinopril 20 mg oral tablet (18 sources) Angiotensin Converting Enzyme Inhibitor Start: take 1 tablet by mouth once [...] surgery. 22 g 0 08/06/2023 08/11/2023 Active oxyCODONE hydrochloride 5 mg oral tablet (20 sources) Opioid Agonist Start: 10-15-2023 End: 10-22-2023 take 1 tablet by mouth every six hours as needed for pain oxyCODONE IR (ROXICODONE) 5 mg immediate release tablet Indications: Post-op pain Take 1 tablet by mouth every 6 hours as needed for pain for up to 7 days. 28 tablet 0 10/15/2023 10/22/2023 Active Start: 10-09-2023 End: 10-16-2023 take 1 tablet by mouth every four hours oxyCODONE IR (ROXICODONE) 5 mg immediate release tablet Indications: Post-op pain Take 1 tablet by mouth every 4 hours for 7 days. 42 tablet 0 10/09/2023 10/15/2023 Discontinued Start: 10-04-2023 End: 10-11-2023 take 1 tablet by mouth every six hours as needed oxyCODONE IR (ROXICODONE) 5 mg immediate release tablet Indications: Acute post-operative pain Take 1-2 tablets by mouth every 6 hours as needed for up to 7 days. 28 tablet 0 10/04/2023 10/11/2023 Active Start: 09-28-2023 End: 10-05-2023 take 1 tablet by mouth every four hours as needed for pain oxyCODONE IR (ROXICODONE) 10 mg tab Indications: S/P lumbar fusion Take 1 tablet by mouth every 4 hours as needed for pain for up to 7 days. Do not start before September 28, 2023. 42 tablet 0 09/28/2023 10/05/2023 Active Start: 09-15-2023 End: 09-26-2023 take 1 tablet by mouth every four hours as needed for pain oxyCODONE IR (ROXICODONE) 10 mg tab Indications: S/P lumbar fusion Take 1 tablet by mouth every 4 hours as needed for pain for up to 7 days. 42 tablet 0 09/19/2023 09/26/2023 Active Start: 09-10-2023 End: 09-17-2023 take 1 tablet by mouth every six hours as needed oxyCODONE IR (ROXICODONE) 10 mg tab Indications: Spondylosis of lumbar region without myelopathy or radiculopathy Take 1 tablet by mouth every 6 hours as needed for up to 7 days. 28 tablet 0 09/10/2023 09/15/2023 Discontinued (Course of therapy completed) Start: 09-04-2023 End: 09-11-2023 take 1 tablet by mouth every six hours as needed for pain oxyCODONE IR (ROXICODONE) 5 mg immediate release tablet Indications: Acute post-operative pain Take 1 tablet by mouth every 6 hours as needed for pain for up to 7 days. Do not start before September 04, 2023. 28 tablet 0 09/04/2023 09/11/2023 Suspended Start: 08-29-2023 End: 09-05-2023 take 1 tablet by mouth every four hours oxyCODONE IR (ROXICODONE) 5 mg immediate release tablet Indications: Acute post-operative pain Take 1 tablet by mouth every 4 hours for 7 days. 42 tablet 0 08/29/2023 09/02/2023 Discontinued Start: 08-22-2023 End: 08-29-2023 take 1 tablet by mouth every six hours as needed oxyCODONE IR (ROXICODONE) 5 mg immediate release tablet Indications: Acute post-operative pain Take 1-2 tablets by mouth every 6 hours as needed for up to 7 days. 56 tablet 0 08/22/2023 08/29/2023 Discontinued sildenafil 100 mg oral tablet (2 sources) Phosphodiesterase 5 Inhibitor Start: 09-11-2022 take 1 tablet by mouth once daily as needed sildenafil 100 mg Tab 100 mg = 1 tab(s), Oral, Daily, PRN as needed, Refills(s) 0 Start Date: 09/11/22 Status: Ordered tiZANidine 2 mg oral tablet (20 sources) Central alpha-2 Adrenergic Agonist Start: 09-10-2023 take 1 tablet by mouth every eight hours tiZANidine (ZANAFLEX) 2 mg tablet Take 3 tablets by mouth every 8 hours. 90 tablet 0 09/10/2023 Active Start: 03-13-2023 take 2 tablets by mo ut once daily at bedtime tiZANidine (ZANAFLEX) 4 [...] ears as discussed--wait 2 wk before starting methocarbamol 750 mg oral tablet (11 sources) Muscle Relaxant Start: 08-22-2023 take 1 tablet by mouth every six hours methocarbamol (ROBAXIN) 750 mg tablet Take 1 tablet by mouth every 6 hours. 60 tablet 0 08/22/2023 Suspended Problems Active Problems Problem Classification Problem Date Documented Date Episodic/Chronic Abdominal hernia (16 sources) Hernia of anterior abdominal wall; Translations: [Ventral hernia without obstruction or gangrene] Onset: 03-18-2022 Episodic Abdominal pain (11 sources) Epigastric pain; Translations: [Epigastric pain] Onset: 03-16-2022 Episodic Acquired foot deformities (20 sources) Right foot drop; Translations: [Foot drop, right foot] Onset: 08-20-2023 08-20-2023 Episodic Allergic reactions (20 sources) Allergy to penicillin; Translations: [Allergy status to penicillin] Onset: 08-06-2023 08-06-2023 Episodic Cardiac dysrhythmias (20 sources) Supraventricular tachycardia; Translations: [Ventricular premature beats] [...] sources) Diverticular disease 09-26-2020 Chronic Essential hypertension (20 sources) Hypertensive disorder; Translations: [Essential hypertension] Onset: 08-06-2023 05-27-2019 Chronic Genitourinary symptoms and ill-defined conditions (2 sources) Blood in urine; Translations: [Gross hematuria] Onset: 12-05-2022 Episodic Hemorrhoids (6 sources) Internal hemorrhoids 09-26-2020 Episodic Hyperplasia of prostate (6 sources) Benign prostatic hypertrophy with outflow obstruction; Translations: [Benign prostatic hyperplasia with lower urinary tract symptoms] Onset: 09-04-2022 Chronic Other acquired deformities (20 sources) Other secondary scoliosis, site unspecified; Translations: [Disorder of bone and cartilage, unspecified] Onset: 04-30-2023 04-30-2023 Chronic Other and unspecified benign neoplasm (6 sources) Dermal cellular nevus 06-15-2019 Episodic Other connective tissue disease (20 sources) History of lumbar fusion; Translations: [Arthrodesis status] Onset: 08-19-2023 08-19-2023 Episodic Other connective tissue disease (14 sources) Swelling of lower limb; Translations: [Other specified soft tissue disorders] Onset: 09-08-2023 09-08-2023 Episodic Other connective tissue disease (14 sources) Pain in lower limb; Translations: [Pain in leg, unspecified] Onset: 09-08-2023 09-08-2023 Episodic Other connective tissue disease (2 sources) Arthrodesis status; Translations: [S/P lumbar spinal fusion] Onset: 09-08-2023 Episodic Other connective tissue disease (2 sources) Other specified soft tissue disorders; Translations: [Localized swelling of lower extremity] Onset: 09-08-2023 Episodic Other connective tissue disease (1 source) Pain in leg, unspecified; Translations: [Pain and swelling of lower extremity, unspecified laterality] Onset: 09-08-2023 Episodic Other diseases of kidney and ureters (1 source) Urinary tract obstruction; Translations: [Other obstructive and reflux uropathy] Onset: 09-04-2022 Episodic Other nervous system disorders (2 sources) Other chronic pain; Translations: [Chronic low back pain, unspecified back pain laterality, unspecified whether sciatica present] Onset: 04-30-2023 Chronic Other nervous system disorders (20 sources) Acute postoperative pain; Translations: [Other acute postprocedural pain] Onset: 08-20-2023 08-29-2023 Episodic Other nervous system disorders (1 source) Other acute postprocedural pain; Translations: [Acute post-operative pain] Onset: 08-20-2023 Episodic Other nervous system disorders (2 sources) Postoperative pain ; Translations: [Other acute postprocedural pain] 10-09-2023 Episodic Other non-epithelial cancer of skin (6 [...] Translations: [Other specified postprocedural states] 07-11-2023 Episodic Residual codes; unclassified (14 sources) Pain; Translations: [Pain, unspecified] Onset: 09-08-2023 09-08-2023 Episodic Residual codes; unclassified (14 sources) Bilateral lower limb edema; Translations: [Localized edema] Onset: 09-08-2023 09-08-2023 Episodic Spondylosis; intervertebral disc disorders; other back problems (7 sources) Lumbar spondylosis; Translations: [Spondylosis without myelopathy or radiculopathy, lumbar region] Onset: 09-07-2023 09-26-2020 Chronic Spondylosis; intervertebral disc disorders; other back problems (20 sources) Lumbar radiculopathy; Translations: [Radiculopathy, cervical region] Onset: 01-18-2022 09-26-2020 Episodic Unclassified (6 sources) Patient encounter status 09-28-2020 Unclassified (2 sources) Chronic low back pain, unspecified back pain laterality, unspecified whether sciatica present; Translations: [Chronic low back pain, unspecified back pain laterality, unspecified whether sciatica present] Onset: 04-30-2023 Varicose veins of lower extremity (2 sources) [...] Onset: 08-05-2008 08-05-2008 Episodic Other skin disorders (20 sources) Seborrheic keratosis; Translations: [Other seborrheic keratosis] Onset: 09-08-2008 09-08-2008 Episodic Residual codes; unclassified (2 sources) Other specified postprocedural states; Translations: [History of laminectomy] Onset: 04-30-2023 Episodic Results Test Name Value Interpretation Reference Range Facility [facility] 10-06-2023 [facility]CO Letter Text Normal [facility] Basic metabolic 2000 panelon 10-04-2023 Anion gap [Moles/Vol] 10 mmol/L Normal 8-15 [facility] Comment on above: Order Comment: Speci men Type: BLOOD SPECIMEN Ordering Facility: [facility] Address: [address] [place] [address] Performed By: #### 2 4321-2 #### [facility] CLIA [id number] [address] [place] [address] [place] Calcium [Mass/Vol] 9.4 mg/dL Normal 8.5-10.2 [facility] Comment on above: Order Comment: Speci men Type: BLOOD SPECIMEN Ordering Facility: [facility] Address: [address] [place] [address] Performed By: #### 2 4321-2 #### [facility] CLIA [id number] [address] [place] [address] [place] Chloride [Moles/Vol] 104 mmol/L Normal 98-107 [facility] Comment on above: Order Comment: Speci men Type: BLOOD SPECIMEN Ordering Facility: [facility] Address: [address] [place] [address] Performed By: #### 2 4321-2 #### [facility] CLIA [id number] [address] [place] [address] [place] CO2 [Moles/Vol] 27 mmol/L Normal 22-30 [facility] Comment on above: Order Comment: Speci men Type: BLOOD SPECIMEN Ordering Facility: [facility] Address: [address] [place] [address] Performed By: #### 2 4321-2 #### [facility] CLIA [id number] [address] [place] [address] [place] Creatinine [Mass/Vol] 0.83 mg/dL Normal 0.73-1.22 [facility] Comment on above: Order Comment: Speci men Type: BLOOD SPECIMEN Ordering Facility: [facility] Address: [address] [place] [address] Performed By: #### 2 4321-2 #### [facility] CLIA [id number] [address] [place] [address] [place] Creatinine and Glomerular filtration rate.predicted panel (S/P/Bld) 97 mL/min/1.73m??? Normal >=60 [facility] Comment on above: Order Comment: Speci men Type: BLOOD SPECIMEN Ordering Facility: [facility] Address: [address] [place] [address] Result Comment: Yesica mated Glomerular Filtration Rate [...] actual GFR. Performed By: #### 2 4321-2 #### [facility] CLIA [id number] [address] [place] [address] [place] Glucose [Mass/Vol] 100 mg/dL High 74-99 [facility] Comment on above: Order Comment: Roberto Carlos lion Type: BLOOD SPECIMEN Ordering Facility: [facility] Address: [address] [place] [address] Result Comment: The [place] Diabetes Association (ADA) provides guidance for cutoff [...] Standards of Medical Care in Diabetes 2016, [place] [employer]. Diabetes Care. 2016.39(Suppl 1). Performed By: #### 2 4321-2 #### [facility] CLIA [id number] [address] [place] [address] [place] Potassium [Moles/Vol] 3.9 mmol/L Normal 3.7-5.1 [facility] Comment on above: Order Comment: Roberto Carlos lion Type: BLOOD SPECIMEN Ordering Facility: [facility] Address: [address] [place] [address] Performed By: #### 2 4321-2 #### [facility] CLIA [id number] [address] [place] [address] [place] Sodium [Moles/Vol] 141 mmol/L Normal 136-144 [facility] Comment on above: Order Comment: Speci men Type: BLOOD SPECIMEN Ordering Facility: [facility] Address: [address] [place] [address] Performed By: #### 2 4321-2 #### [facility] CLIA [id number] [address] [place] [address] [place] Urea nitrogen [Mass/Vol] 15 mg/dL Normal 9-24 [facility] Comment on above: Order Comment: Speci men Type: BLOOD SPECIMEN Ordering Facility: [facility] Address: [address] [place] [address] Performed By: #### 2 4321-2 #### [facility] CLIA [id number] [address] [place] [address] [place] CBC panel Auto (Bld)on 10-03 Erythrocyte distribution width (RBC) [Ratio] 12.4 % Normal 11.5-15.0 [facility] Comment on above: Order Comment: Speci men Type: BLOOD SPECIMEN Ordering Facility: [facility] Address: [address] [place] [address] Performed By: #### 5 8410-2 #### [facility] CLIA [id number] [address] [place] [address] [place] Hematocrit (Bld) [Volume fraction] 37.6 % Low 39.0-51.0 [facility] Comment on above: Order Comment: Speci men Type: BLOOD SPECIMEN Ordering Facility: [facility] Address: [address] [place] [address] Performed By: #### 5 8410-2 #### [facility] CLIA [id number] [address] [place] [address] [place] Hemoglobin (Bld) [Mass/Vol] 12.1 g/dL Low 13.0-17.0 [facility] Comment on above: Order Comment: Speci men Type: BLOOD SPECIMEN Ordering Facility: [facility] Address: [address] [place], [place] [address] Performed By: #### 5 8410-2 #### [facility] CLIA [id number] [address] [place] [address] [place] MCH (RBC) [Entitic mass] 32.5 pg Normal 26.0-34.0 [facility] Comment on above: Order Comment: Speci men Type: BLOOD SPECIMEN Ordering Facility: [facility] Address: [address] [place] [address] Performed By: #### 5 8410-2 #### [facility] CLIA [id number] [address] [place] [address] [place] MCHC (RBC) [Mass/Vol] 32.2 g/dL Normal 30.5-36.0 [facility] Comment on above: Order Comment: Speci men Type: BLOOD SPECIMEN Ordering Facility: [facility] Address: [address] [place] [address] Performed By: #### 5 8410-2 #### [facility] CLIA [id number] [address] [place] [address] [place] MCV (RBC) [Entitic vol] 101.1 fL High 80.0-100.0 [facility] Comment on above: Order Comment: Speci men Type: BLOOD SPECIMEN Ordering Facility: [facility] Address: [address] [place] [address] Performed By: #### 5 8410-2 #### [facility] CLIA [id number] [address] [place] [address] [place] Nucleated RBC (Bld) [#/Vol] 10*3/uL Normal <0.01 [facility] Comment on above: Order Comment: Speci men Type: BLOOD SPECIMEN Ordering Facility: [facility] Address: [address] [place] [address] Performed By: #### 5 8410-2 #### [facility] CLIA [id number] [address] [place] [address] [place] Platelet mean volume (Bld) [Entitic vol] 10.1 fL Normal 9.0-12.7 [facility] Comment on above: Order Comment: Speci men Type: BLOOD SPECIMEN Ordering Facility: [facility] Address: [address] [place] [address] Performed By: #### 5 8410-2 #### [facility] CLIA [id number] [address] [place] [address] [place] Platelets (Bld) [#/Vol] 352 10*3/uL Normal 150-400 [facility] Comment on above: Order Comment: Speci men Type: BLOOD SPECIMEN Ordering Facility: [facility] Address: [address] [place] [address] Performed By: #### 5 8410-2 #### [facility] CLIA [id number] [address] [place] [address] [place] RBC (Bld) [#/Vol] 3.72 10*6/uL Low 4.20-6.00 [facility] Comment on above: Order Comment: Speci men Type: BLOOD SPECIMEN Ordering Facility: [facility] Address: [address] [place] [address] Performed By: #### 5 8410-2 #### [facility] CLIA [id number] [address] [place] [address] [place] WBC (Bld) [#/Vol] 10.84 10*3/uL Normal 3.70-11.00 [facility] Comment on above: Order Comment: Speci men Type: BLOOD SPECIMEN Ordering Facility: [facility] Address: [address] [place] [address] Performed By: #### 5 8410-2 #### [facility] CLIA [id number] [address] [place] [address] [place] THERAPY NTon 10-04-2023 THERAPY NT HNO ID: [id number] Author: RUBÉN HILLS, PT, DPT Service: Physical Therapy Author Type: Physical Therapist Type: Therapy (PT/OT/Speech/Resp) Filed: 10/04/2023 11:16 Note Text: Physical Therapy Treatment Summary SERVICE DATE: 10/04/2023 SERVICE TIME: 1053 to 1105 ROOM: [place] [address] PT 6 Clicks Score: 24 DISCHARGE RECOMMENDATIONS Home Recommended Discharge Disposition Comments: Progression to OP PT ASSESSMENT Response to Therapy Interventions: Good Participation in Activities, Improved Tolerance for Activity Pt pleasant and cooperative, demos good effort and tolerance with long distance hallway ambulation and stairs. Education provided, no further skilled PT needs, d/c PT. PRECAUTIONS Spine, Fall Risk CURRENT HOSPITAL COURSE s/p R L4/5 facetectomy Relevant Past Medical History: SVT, HTN, seborrheic keratosis, scoliosis, prior spine surgeries, navneet foot drop HOME LIVING Patient Lives With: Spouse Assistance Available: 24-Hour Entry To Home: Stairs Number Of Stairs Into Home: 4 Number Of Stairs To Bed/Bath: 1st level set up available Laundry: has assist Equipment Owned: Walker- Wheeled, Rollator, Shower Chair PRIOR FUNCTIONAL LEVEL Within Functional Limits Pt reports mod I with ww, navneet foot drop, has AFOs. 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 Does not perform IADLs. SUBJECTIVE I'm doing better THERAPY DIAGNOSIS Reduced mobility-other TREATMENT INTERVENTIONS Gait Training (92920) Timed Code Treatment (minutes): 12 Skilled Treatment Time (minutes): 12 TRAINING AND EDUCATION PROVIDED Benefits of In-Hospital Mobility, Energy Conservation, Gait Pattern, Reduction of Deviations, Home Safety, Stair Navigation, Transfers, Treatment Protocol THERAPEUTIC SKILLS USED Activity Dosing, Assessment of Tolerance Including Vitals Response to Activity, Cues for Sequencing/Proper Technique for Activity, Cuing Visual, Teach-Back for Education FUNCTIONAL STATUS Bed Mobility Rolling: Modified Independent Supine To Sit: Modified Independent Transfers Sit To Stand: Supervision Stand To Sit: Supervision Bed to Chair Gait Stand By Assistance Improved foot clearance Gait Device: Wheeled Walker General Deviations/Observatio ns: Daphne decreased, Step length decreased Gait Distance (feet): 400 Stairs Stand By Assistance Stairs Device: Rail Number of Stairs: 10 GOALS Patient will demonstrate progress with functional mobility to allow safe discharge to home with available support and/or physical assistance. Rehab Potential: Excellent Progress Toward Goals: Progressing as expected PLAN PT Frequency: Discontinue Therapy Services Reasons Therapy Services Discontinued: Goals met Treatment Interventions: Functional Mobility Training Plan for Next Visit: Stair Training SIGNATURE: Rubén Hills PT, DPT PATIENT NAME: Braden Rodriguez DATE: October 04, 2023 TIME: 11:16 AM Normal [facility] Basic metabolic 2000 panelon 10-03-2023 Anion gap [Moles/Vol] 10 mmol/L Normal 8-15 [facility] Comment on above: Order Comment: Speci men Type: BLOOD SPECIMEN Ordering Facility: [facility] Address: [address] [place] [address] Performed By: #### 2 4321-2 #### [facility] CLIA [id number] [address] [place] [address] [place] Calcium [Mass/Vol] 9.0 mg/dL Normal 8.5-10.2 [facility] Comment on above: Order Comment: Speci men Type: BLOOD SPECIMEN Ordering Facility: [facility] Address: [address] [place] [address] Performed By: #### 2 4321-2 #### [facility] CLIA [id number] [address] [place] [address] [place] Chloride [Moles/Vol] 105 mmol/L Normal 98-107 [facility] Comment on above: Order Comment: Speci men Type: BLOOD SPECIMEN Ordering Facility: [facility] Address: [address] [place] [address] Performed By: #### 2 4321-2 #### [facility] CLIA [id number] [address] [place] [address] [place] CO2 [Moles/Vol] 23 mmol/L Normal 22-30 [facility] Comment on above: Order Comment: Speci men Type: BLOOD SPECIMEN Ordering Facility: [facility] Address: [address] [place] [address] Performed By: #### 2 4321-2 #### [facility] CLIA [id number] [address] [place] [address] [place] Creatinine [Mass/Vol] 0.92 mg/dL Normal 0.73-1.22 [facility] Comment on above: Order Comment: Roberto Carlos lion Type: BLOOD SPECIMEN Ordering Facility: [facility] Address: [address] [place] [address] Performed By: #### 2 4321-2 #### [facility] CLIA [id number] [address] [place] [address] [place] Creatinine and Glomerular filtration rate.predicted panel (S/P/Bld) 92 mL/min/1.73m??? Normal >=60 [facility] Comment on above: Order Comment: Roberto Carlos lion Type: BLOOD SPECIMEN Ordering Facility: [facility] Address: [address] [place] [address] Result Comment: Yesica mated Glomerular Filtration Rate [...] actual GFR. Performed By: #### 2 4321-2 #### [facility] CLIA [id number] [address] [place] [address] [place] Glucose [Mass/Vol] 121 mg/dL High 74-99 [facility] Comment on above: Order Comment: Roberto Carlos lion Type: BLOOD SPECIMEN Ordering Facility: [facility] Address: [address] [place] [address] Result Comment: The [place] Diabetes Association (ADA) provides guidance for cutoff [...] Standards of Medical Care in Diabetes 2016, [place] [employer]. Diabetes Care. 2016.39(Suppl 1). Performed By: #### 2 4321-2 #### [facility] CLIA [id number] [address] [place] [address] [place] Potassium [Moles/Vol] 4.0 mmol/L Normal 3.7-5.1 [facility] Comment on above: Order Comment: Speci men Type: BLOOD SPECIMEN Ordering Facility: [facility] Address: [address] [place] [address] Performed By: #### 2 4321-2 #### [facility] CLIA [id number] [address] [place] [address] [place] Sodium [Moles/Vol] 138 mmol/L Normal 136-144 [facility] Comment on above: Order Comment: Speci men Type: BLOOD SPECIMEN Ordering Facility: [facility] Address: [address] [place] [address] Performed By: #### 2 4321-2 #### [facility] CLIA [id number] [address] [place] [address] [place] Urea nitrogen [Mass/Vol] 21 mg/dL Normal 9-24 [facility] Comment on above: Order Comment: Speci men Type: BLOOD SPECIMEN Ordering Facility: [facility] Address: [address] [place] [address] Performed By: #### 2 4321-2 #### [facility] CLIA [id number] [address] [place] [address] [place] CBC panel Auto (Bld)on 10-02 Erythrocyte distribution width (RBC) [Ratio] 11.9 % Normal 11.5-15.0 [facility] Comment on above: Order Comment: Speci men Type: BLOOD SPECIMEN Ordering Facility: [facility] Address: [address] [place] [address] Performed By: #### 2 4321-2 #### [facility] CLIA [id number] [address] [place] [address] [place] Hematocrit (Bld) [Volume fraction] 35.0 % Low 39.0-51.0 [facility] Comment on above: Order Comment: Speci men Type: BLOOD SPECIMEN Ordering Facility: [facility] Address: [address] [place] [address] Performed By: #### 2 4321-2 #### [facility] CLIA [id number] [address] [place] [address] [place] Hemoglobin (Bld) [Mass/Vol] 11.5 g/dL Low 13.0-17.0 [facility] Comment on above: Order Comment: Speci men Type: BLOOD SPECIMEN Ordering Facility: [facility] Address: [address] [place] [address] Performed By: #### 2 4321-2 #### [facility] CLIA [id number] [address] [place] [address] [place] MCH (RBC) [Entitic mass] 32.0 pg Normal 26.0-34.0 [facility] Comment on above: Order Comment: Speci men Type: BLOOD SPECIMEN Ordering Facility: [facility] Address: [address] [place] [address] Performed By: #### 2 4321-2 #### [facility] CLIA [id number] [address] [place] [address] [place] MCHC (RBC) [Mass/Vol] 32.9 g/dL Normal 30.5-36.0 [facility] Comment on above: Order Comment: Speci men Type: BLOOD SPECIMEN Ordering Facility: [facility] Address: [address] [place] [address] Performed By: #### 2 4321-2 #### [facility] CLIA [id number] [address] [place] [address] [place] MCV (RBC) [Entitic vol] 97.5 fL Normal 80.0-100.0 [facility] Comment on above: Order Comment: Speci men Type: BLOOD SPECIMEN Ordering Facility: [facility] Address: [address] [place] [address] Performed By: #### 2 4321-2 #### [facility] CLIA [id number] [address] [place] [address] [place] Nucleated RBC (Bld) [#/Vol] 10*3/uL Normal <0.01 [facility] Comment on above: Order Comment: Speci men Type: BLOOD SPECIMEN Ordering Facility: [facility] Address: [address] [place] [address] Performed By: #### 2 4321-2 #### [facility] CLIA [id number] [address] [place] [address] [place] Platelet mean volume (Bld) [Entitic vol] 10.4 fL Normal 9.0-12.7 [facility] Comment on above: Order Comment: Speci men Type: BLOOD SPECIMEN Ordering Facility: [facility] Address: [address] [place] [address] Performed By: #### 2 4321-2 #### [facility] CLIA [id number] [address] [place] [address] [place] Platelets (Bld) [#/Vol] 354 10*3/uL Normal 150-400 [facility] Comment on above: Order Comment: Speci men Type: BLOOD SPECIMEN Ordering Facility: [facility] Address: [address] [place] [address] Performed By: #### 2 4321-2 #### [facility] CLIA [id number] [address] [place] [address] [place] RBC (Bld) [#/Vol] 3.59 10*6/uL Low 4.20-6.00 [facility] Comment on above: Order Comment: Speci men Type: BLOOD SPECIMEN Ordering Facility: [facility] Address: [address] [place] [address] Performed By: #### 2 4321-2 #### [facility] CLIA [id number] [address] [place], [place] [address] [place] [address] [place] WBC (Bld) [#/Vol] 11.20 10*3/uL High 3.70-11.00 [facility] Comment on above: Order Comment: Speci men Type: BLOOD SPECIMEN Ordering Facility: [facility] Address: [address] [place] [address] Performed By: #### 2 4321-2 #### [facility] CLIA [id number] [address] [place] [address] [place] CNDSon 10-03-2023 CNDS HNO ID: [id number] Author: KATHERINE KEITH MD Service: Neurosurgery Author Type: Fellow Type: Discharge Summary Filed: 10/07/2023 09:59 Note Text: Attestation signed by Katherine Keith MD at 10/07/2023 9:59 AM Katherine Keith MD DISCHARGE SUMMARY NEUROLOGICAL [facility] PATIENT NAME: Braden Rodriguez ADMISSION DATE: 10/02/2023 DISCHARGE DATE: 10/04/2023 Attending Physician: Katherine Keith MD PCP: Ester Cain MD [phone] Code Status: Prior Discharged Against Medical Advice? No Highest Readmission Risk Score: 18 The 30 day readmissions risk score is derived from an internally validated risk model which evaluates patient level characteristics, utilization history, medication orders and lab results up until the day of discharge. Patients with a score of 40 or above are considered highest risk for readmission. Specific patient level drivers will be listed at the bottom of the summary. The 30 day readmissions risk score is derived from an internally validated risk model which evaluates patient level characteristics, utilization history, medication orders and lab results up until the day of discharge. Patients with a score of 40 or above are considered highest risk for readmission. Specific patient level drivers will be listed at the bottom of the summary Transitions of Care Critical Issues: none LABS AND PROCEDURES PENDING AT DISCHARGE: No pending results. Operations During Hospitalization: 10/02/2023: Right L4/5 facetectomy Operative Duration: 3 Hr 20 Min 57 Sec Implants Used for Surgery: * No implants in log * Surgical Specimens: * No specimens in log * Incision/Procedure Start Time: 3:13 PM Incision Close/Procedure End Time: 5:29 PM Surgeon(s) and Role: * Katherine Keith MD - Primary * Hui Whyte MD - Fellow Sign Manufacturer: Lindsay Lew RN Sign Manufacturer (Relief): Magaly Brasher RN Scrub Orientee: Indiana Orantes RN Scrub Person: Brandi Campos ST Scrub Person (Relief): Lindsay Lew RN Procedures During Hospitalization: No procedures performed Hospital Course: The patient was electively admitted to the [facility] with lumbar radiculopathy. After being optimized for surgery by the PACE teams, Braden Rodriguez was identified and brought into the Operating Room by the anesthesia and nursing teams. Prior to surgery the patient was treated with antibiotics and continued with antibiotics postoperatively. The patient underwent a Right L4/5 facetectomy on 10/02/2023. The patient tolerated the procedure and was taken to PACU, and then to the hospital surgical floor when PACU criteria was made. The patient was then transferred up to H060 007/H060-07 hospital room for postoperative management. Patient was fitted with fitted with sequential compression devices for DVT prophylaxis. The patient was discharged on POD # 2 in stable condition. Complete and comprehensive discharge instructions were provided to the patient as well as necessary prescriptions. The patient had no further questions and was advised to call with any questions, concerns, or problems. Patient's pain was well controlled with Oral Pain Medications. Physical Therapy was started on POD # 1. Patient progressed satisfactorily through physical therapy until discharge. Based upon the appropriate milestones the patient met during the hospital course, Physical Therapy recommended patient be discharged to [facility]- discharged home. Patient was hemodynamically stable postoperatively. Active Hospital Problems as of 10/04/2023 Noted - Resolved A Hospital Primary hypertension 08/06/2023 - Present Yes * (Principal) Low back pain 10/02/2023 - Present Yes Resolved Hospital Problems as of 10/04/2023 None The patient was discharged on POD # 2 Days Post-Op in stable condition. Complete and comprehensive discharge instructions were provided to the patient as well as necessary prescriptions. The patient had no further questions and was advised to call with any questions, concerns, or problems. Consulting Teams During Hospitalization: None Treatment Team: Attending Provider: Katherine Keith MD [facility] bernstein APRN.MICE RAISER Patient's pain was well controlled with Oral Pain Medications. Physical Therapy was started on POD # 1. Patient progressed satisfactorily through physical therapy until discharge. Based upon the appropriate milestones the patient met during the hospital course, Physical Therapy recommended patient be discharged to [facility]- discharged home. Relevant labs included: CBC: Recent Labs 10/04/23 0941 10/03/23 0454 WBC 10.84 11.20* HB 12.1* 11.5* HCT 37.6* 35.0* PLT 352 354 MCV 101.1* 97.5 RD (more content not included)... Normal [facility] THERAPY NTon 10-03-2023 THERAPY NT HNO ID: [id number] Author: XIN BUTLER OT/Lew Service: Occupational Therapy Author Type: Occupational Therapist Type: Therapy (PT/OT/Speech/Resp) Filed: 10/03/2023 09:40 Note Text: OCCUPATIONAL THERAPY MISSED VISIT SERVICE DATE: 10/03/2023 SERVICE TIME: 936 ROOM: [place] [address] Patient not seen due to no skilled OT needs. Occupational Therapy (OT) consult received. Per department protocol, will defer initial discharge planning to Physical Therapy (PT). Per chart review, patient has mobility deficits; but no acute vision, cognition, or upper extremity needs identified. OT will sign off and d/c orders at this time. SIGNATURE: Xin Butler OT/Lew PATIENT NAME: Braden Rodriguez DATE: October 03, 2023 TIME: 9:38 AM Normal [facility] THERAPY NT HNO ID: [id number] Author: RUBÉN HILLS, PT, DPT Service: Physical Therapy Author Type: Physical Therapist Type: Therapy (PT/OT/Speech/Resp) Filed: 10/03/2023 09:23 Note Text: Physical Therapy Evaluation Summary SERVICE DATE: 10/03/2023 SERVICE TIME: 824 to 904 ROOM: [place] [address] PT 6 Clicks Score: 23 DISCHARGE RECOMMENDATIONS Home Recommended Discharge Disposition Comments: Progression to OP PT ASSESSMENT Response to Therapy Interventions: Good Participation in Activities Pt initially dismissive but more cordial as session progressed. Navneet foot drop but able to clear feet well without use of navneet AFOs (which he owns). One instance of LOB when pt standing with 1 hand on ww performing SLS to adjust sock, cues for safety awareness. Pt agreeable to 1 additional PT visit for stair negotiation. PRECAUTIONS Spine, Fall Risk CURRENT HOSPITAL COURSE s/p R L4/5 facetectomy Relevant Past Medical History: SVT, HTN, seborrheic keratosis, scoliosis, prior spine surgeries, navneet foot drop HOME LIVING Patient Lives With: Spouse Assistance Available: 24-Hour Entry To Home: Stairs Number Of Stairs Into Home: 4 Number Of Stairs To Bed/Bath: 1st level set up available Laundry: has assist Equipment Owned: Walker- Wheeled, Rollator, Shower Chair PRIOR FUNCTIONAL LEVEL Within Functional Limits Pt reports mod I with ww, navneet foot drop, has AFOs. 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 Does not perform IADLs. SUBJECTIVE We're not doing this right now. I still have the catheter in and I haven't eaten breakfast THERAPY DIAGNOSIS Reduced mobility-other TREATMENT INTERVENTIONS Evaluation, Therapeutic Activity (49983) Timed Code Treatment (minutes): 25 Skilled Treatment Time (minutes): 40 TRAINING AND EDUCATION PROVIDED Anatomy and Impact on Deficits, Assistive Device Use, Benefits of In-Hospital Mobility, Discharge Planning, Energy Conservation, Exercise Program, Expected Functional Level, Gait Pattern, Reduction of Deviations, Handout Issued, Home Safety, Positioning, Precautions/Restricti ons, Falls Prevention, Role of Physical Therapy, Transfers, Treatment Protocol THERAPEUTIC SKILLS USED Activity Dosing, Assessment of Tolerance Including Vitals Response to Activity, Cuing Verbal, Cuing Visual, Cues for Sequencing/Proper Technique for Activity, Teach-Back for Education FUNCTIONAL STATUS Bed Mobility Rolling: Modified Independent Supine To Sit: Modified Independent Transfers Sit To Stand: Supervision Stand To Sit: Supervision Bed to Chair Gait Stand By Assistance Increased navneet hip flexion to clear feet d/t navneet foot drop Gait Device: Wheeled Walker General Deviations/Observatio ns: Daphne decreased, Improper distancing from assistive device, UE weight bearing on assistive device excessive Gait Distance (feet): 15ft and 400ft Stairs GOALS Patient will demonstrate progress with functional mobility to allow safe discharge to home with available support and/or physical assistance. Rehab Potential: Excellent PLAN PT Frequency: One Additional Visit Treatment Interventions: Functional Mobility Training Plan for Next Visit: Stair Training SIGNATURE: Rubén Hills PT, DPT PATIENT NAME: Braden Rodriguez DATE: October 03, 2023 TIME: 9:23 AM Normal [facility] ANES POSTPROC EVALon 024 ANES POSTPROC EVAL HNO ID: [id number] Author: ANITA VILLAFUERTE MD Service: ? Author Type: Anesthesiologist Type: Anesthesia Postprocedure Evaluation Filed: 10/02/2023 18:47 Note Text: POST ANESTHESIA EVALUATION NOTE : 1955 Procedure Summary Date: 10/02/23 Room / Location: [address] [facility] Anesthesia Start: 1434 Anesthesia Stop: 1800 Procedures: EXPLORATION OF SPINAL FUSION (Spine Lumbar) DECOMPRESSION LAMINECTOMY LUMBAR POSTERIOR LEVEL 1 (Spine level L3) DECOMPRESSION LAMINECTOMY 1ST ADD'L LUMBAR SEGMENT (Spine levels L4-5) POSTERIOR SEGMENTAL INSTRUMENTATION FOLLOWING LUMBAR FUSION 3-6 LEVELS (Spine Lumbar) Diagnosis: S/P lumbar spinal fusion (S/P lumbar spinal fusion [Z98.1]) Surgeons: Katherine Keith MD Responsible Provider: Anita Villafuerte MD Anesthesia Type: general ASA Status: 3 Anesthesia Type: general Airway Type: ETT Last Vitals Vitals Value Taken Time BP 137/68 10/02/23 1845 Temp 36.4 ?C (97.5 ?F) 10/02/23 1800 Pulse 68 10/02/23 1845 Resp 13 10/02/23 1845 SpO2 99 % 10/02/231844 Vitals shown include unfiled device data. Post Anesthesia Patient Status Patient Evaluation: PACU. PACU/ICU Patient Condition: stable. Neurological Status: aware and responsive. Pulmonary Status: breathing comfortably on room air Airway Control: returned to baseline unsupported. Cardiovascular Status: stable. Pain Management: clinically adequate Postoperative Hydration: acceptable. Intraoperative Events: no significant anesthesia events Post Operative Nausea/Vomiting Status: no significant post operative nausea or vomiting Recommendation: continue current plan of care. Anesthesia Observations No Documentation SIGNATURE: Viktor De Guzman MD PATIENT NAME: Braden Rodriguez DATE: October 02, 2023 TIME: 6:46 PM CSN: [id number] Normal [facility] ANES PRE-OPon 10-02-2023 ANES PRE-OP HNO ID: [id number] Author: FELICIA PEREZ MD Service: ? Author Type: Anesthesiologist Type: Anesthesia Preprocedure Evaluation Filed: 10/02/2023 11:43 Note Text: ANESTHESIOLOGY DAY OF SURGERY NOTE : 1955 Procedure Information Date/Time: 10/02/23 1445 Procedures: EXPLORATION OF SPINAL FUSION (Spine Lumbar) DECOMPRESSION LAMINECTOMY LUMBAR POSTERIOR LEVEL 1 (Spine level L3) DECOMPRESSION LAMINECTOMY 1ST ADD'L LUMBAR SEGMENT (Spine levels L4-5) POSTERIOR SEGMENTAL INSTRUMENTATION FOLLOWING LUMBAR FUSION 3-6 LEVELS (Spine Lumbar) Location: [place] [address] [facility] Surgeons: Katherine Keith MD Estimated body mass index is 26.31 kg/m? as calculated from the following: Height as of 08/19/23: 182.9 cm (6'). Weight as of 08/19/23: 88 kg (194 lb). Most recent hematocrit and potassium results: Hematocrit 38.1 09/07/2023 Potassium 4.3 09/10/2023 Relevant Problems CARDIO (+) Primary hypertension (+) SVT (supraventricular tachycardia) (HCC) Treadmill stress test negative, EKG with sinus carly. I - PHYSICAL EVALUATION AIRWAY Patient intubated: No. Tracheostomy tube not present Mallampati: III. TM distance: >3 FB. Neck ROM: full ROM without neurological symptoms. Mouth opening: adequate. Short neck: no. Thick neck: no Han present: yes Lip Bite Test: II DENTAL Dental findings: teeth intact. II - ANESTHESIA PLAN ASA Score: 3 Anesthetic Plan: general Airway type: ETT The patient is not a current smoker. NPO Status: adequate Beta Janak Monitoring Plan Monitoring plan: standard ASA. Post Procedure Analgesic Plan Postoperative analgesic plan: parenteral or oral opioids and multimodal analgesia. Informed Consent Anesthetic risks, benefits, alternatives, personnel and consent discussed: yes. Patient / Responsible Republican agrees to proceed: yes Patient / Surrogate agrees to blood products: Yes Potential Anesthesia issues that may suggest increased risk of complications or contraindication to planned procedure: none. No vitals data found for the desired time range. No current facility-administered medications on file as of . Outpatient Medications as of Medication Sig diclofenac (VOLTAREN ARTHRITIS PAIN) 1 % topical gel Apply 2 g to affected area two times a day. lidocaine (LIDODERM) 5 % Take as instructed on package tiZANidine (ZANAFLEX) 2 mg tablet Take 3 tablets by mouth every 8 hours. gabapentin (NEURONTIN) 300 mg capsule Take 1 capsule by mouth every 8 hours for 30 days. acetaminophen (TYLENOL) 325 mg tablet 2 tablets by ORAL/FEEDING TUBE route every 4 hours. senna-docusate (SENNA-S) 8.6-50 mg per tablet Take 2 tablets by mouth two times a day. carvedilol (COREG) 12.5 mg tablet Take 12.5 mg by mouth two times a day with meals. I have interviewed and examined the patient. I have reviewed the medical record and/or the pre-anesthesia evaluation, pertinent labs, and test results. This contains updated information obtained within 48 hours of Surgery/Procedure. SIGNATURE: Felicia Perez MD PATIENT NAME: Braden Rodriguez DATE: October 02, 2023 TIME: 11:30 AM CSN: [id number] Normal [facility] BRIEF OP NOTon 10-02-2023 BRIEF OP NOT HNO ID: [id number] Author: HUI WHYTE MD Service: Neurosurgery Author Type: Fellow Type: Brief Op Note Filed: 10/02/2023 17:36 Note Text: BRIEF OP NOTE LOG ID: [id number] Surgery/Procedure Date: 10/02/2023 Incision/Procedure Start Time: 3:13 PM Incision Close/Procedure End Time: Surgeon(s)/Procedural ist(s) and Mold Washer(s): Surgeon(s) and Role: * Katherine Keith MD - Primary * Hui Whyte MD - Fellow Pre-Op/Pre-Procedure Diagnosis: lumbar radiculopathy Post-Op/Post-Procedur e Diagnosis: same Procedure(s): Right L4/5 facetectomy Anesthesia: General Estimated Blood Loss: 62 mls Specimens Removed: * No specimens in log * Drain: None Complications: None SIGNATURE: Hui Whyte MD PATIENT NAME: Braden Rodriguez DATE: October 02, 2023 TIME: 5:35 PM PAGER/CONTACT #: [phone] Patient was accompanied to the next level of care by a licensed practitioner from the surgical team pending completion of this brief op note (or operative note) Please page [facility] ([phone]) from 5p-6a and on weekends for any issues. Between 5PM to 7AM, or if urgent, please page the orthopaedic on-call resident at: [phone] ([phone]) for [facility] patients [phone] for [facility] patients Normal [facility] TYPE + SCREENon 10-02-2023 ABO O Normal [facility] Comment on above: Order Comment: Speci men Type: BLOOD SPECIMENOrdering Facility: [facility] Address: [address] [place] [address] Performed By: #### T SCR ####CC MAIN BLOOD BANKCLIA [id number] [place] [address] [place] HISTORICAL AB SCR STATUS Negative Normal [facility] Comment on above: Order Comment: Speci men Type: BLOOD SPECIMENOrdering Facility: [facility] Address: [address] [place] [address] Performed By: #### T SCR ####CC MAIN BLOOD BANKCLIA [id number] [place] [address] [place] Rh Nom (Bld) Negative Normal [facility] Comment on above: Order Comment: Speci men Type: BLOOD SPECIMENOrdering Facility: [facility] Address: [address] [place] [id number] Performed By: #### T SCR ####CC MAIN BLOOD BANKCLIA [id number] [place] [id number] [facility] TYPE AND SCREEN EXPIRATION 10/05/2023 23:59 Normal [facility] Comment on above: Order Comment: Speci men Type: BLOOD SPECIMENOrdering Facility: [facility] Address: [address] [facility] [place] [address] Performed By: #### T SCR ####CC MAIN BLOOD BANKCLIA [id number] [address] XR LUMBAR SPECIFY 1Von 10-01 XR LUMBAR SPECIFY 1V * * *Final Report* * * DATE OF EXAM: Oct 02 2023 4:23PM ESX [id number] - XR LUMBAR SPECIFY 1V / PROCEDURE REASON: DECOMPRESSION LAMINECTOMY LUMBAR POSTERIOR LEVEL 1 * * * * Physician Interpretation * * * * HISTORY: intra op. DECOMPRESSION LAMINECTOMY LUMBAR POSTERIOR LEVEL 1. TECHNIQUE: XR LUMBAR SPECIFY 1V Laterality: RIGHT Number of different views (projections): 3 COMPARISON: August 21, 2023 RESULT: 3 lateral intraoperative images obtained for surgical planning. The patient is status post discectomy and cage fixation as well as pedicle screw fixation at multiple levels lower lumbar spine. IMPRESSION: Intraoperative imaging. 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: PSCB Transcribe Date/Time: Oct 02 2023 4:35P Dictated by : MANA TSAI MD This examination was interpreted and the report reviewed and electronically signed by: MANA TSAI MD on Oct 02 2023 4:37PM EST [id number] Normal [facility] CNNURSEon 09-30-2023 CNNURSE Nurse Visit (SPNSMN) BRADEN [id number]) 1955 Date Time Provider Department 09/30/23 10:00 AM WELLINGTON CASTANEDA SPNSMN During your visit today, we recorded the following information about you: Wellington Castaneda RN 09/30/2023 10:11 AM Signed Neuro SPINE CARE COORDINATION PRE-OP VISIT Met with patient via phone for pre op education. Given both written and verbal instructions re : Skin prep, wound care, pain management and post op restrictions. Provided to patient: [facility] Surgery Guide, skin prep supplies, Spine Surgery Pre/post op education packet. Yes Reviewed with patient to report to desk JRezee for surgery ? Yes. Reviewed with the patient to call [phone] the day before to get surgery report time? Yes. Patient aware eat nothing after midnight prior to surgery, clear liquids only until 2 hours before report time. Yes. Patient aware surgery will be INPATIENT. Discussed care post discharge : Self care and Home Health Care ( PT-OT-nurse). Does patient have transportation to and from surgery ? Yes. Falls Education provided ? Yes Nasal swab obtained ? No. Patient instructed in mupirocin treatment : n/a. Questions answered and patient voice(s) understanding via teach back. Physical Therapy : n/a Additional Comments : Post -op Support lives at home and has support of son and daughter. Wellington Castaneda RN Allergies As of Date: 09/30/2023 Noted Allergy Reaction PENICILLINS 07/04/2006 2 - Rash Date Reviewed: 09/09/2023 Reviewed by: Hui Whyte MD - Fully Assessed Primary Visit Diagnosis:S/P lumbar spinal fusion [Z98.1] Prescriptions as of 09/30/2023 - oxyCODONE IR (ROXICODONE) 10 mg tab Take 1 tablet by mouth every 4 hours as needed for pain for up to 7 days. Do not start before September 28, 2023. - diclofenac (VOLTAREN ARTHRITIS PAIN) 1 % topical gel Apply 2 g to affected area two times a day. - lidocaine (LIDODERM) 5 % Take as instructed on package - tiZANidine (ZANAFLEX) 2 mg tablet Take 3 tablets by mouth every 8 hours. - gabapentin (NEURONTIN) 300 mg capsule Take 1 capsule by mouth every 8 hours for 30 days. - acetaminophen (TYLENOL) 325 mg tablet 2 tablets by ORAL/FEEDING TUBE route every 4 hours. - senna-docusate (SENNA-S) 8.6-50 mg per tablet Take 2 tablets by mouth two times a day. - carvedilol (COREG) 12.5 mg tablet Take 12.5 mg by mouth two times a day with meals. Problem List As Of Date 09/30/2023 Noted Resolved BENIGN NEOPLASM SKIN NEC-exam [D23.9] 08/05/2008 UNCERTAIN BEHAV NEOPL SKIN [D48.5] 08/05/2008 BENIGN NEOPLASM SKIN NOS [D23.9] 09/08/2008 SEBORRHEIC KERATOSIS NOS [L82.1] 09/08/2008 Primary hypertension [I10] 08/06/2023 History of penicillin allergy [Z88.0] 08/06/2023 SVT (supraventricular tachycardia) (HCC) [I47.1*08/06/2023 S/P lumbar fusion [Z98.1] 08/19/2023 Acute post-operative pain [G89.18] 08/20/2023 Scoliosis of lumbar region due to degenerative *08/20/2023 Foot drop, right foot [M21.371] 08/20/2023 Intractable pain [R52] 09/08/2023 Edema of both lower extremities [R60.0] 09/08/2023 Localized swelling of lower extremity [M79.89] 09/08/2023 Pain and swelling of lower extremity [M79.606, *09/08/2023 Encounter Status:Closed by WELLINGTON CASTANEDA on 09/30/23 [facility] BRAD[facility] RODRIGUEZ ([id number]) 1955 M Date Time Provider Department 09/30/23 JULIANNE BROCK ([facility]) OTREMN During your visit today, we recorded the following information about you: Julianne Brock 09/30/2023 3:28 PM Signed I spoke with Braden Rodriguez, over the phone on 09/30/2023 regarding the study IRB# [id number]: Postoperative urinary retention in patients after noncardiac surgery and reversal of neuromuscular block by neostigmine or sugammadex: A randomized control trial. The PI of the study is Dr. Saleem Chen. The study was briefly explained. The patient did not show interest in the research project. If interested, patient will still need to be consented in-person and will sign the approved IRB consent form before surgery. I provided the patient with all of my contact information for any other questions and/or concerns. I thanked the patient for their time and wished him/her luck with the upcoming procedure. Signed, Julianne Brock Medical Student Visiting Researcher OUTCOMES RESEARCH MAIN Allergies As of Date: 09/30/2023 Noted Allergy Reaction PENICILLINS 07/04/2006 2 - Rash Date Reviewed: 09/09/2023 Reviewed by: Hui Whyte MD - Fully Assessed Reason for Visit: Research [293] Prescriptions as of 09/30/2023 - oxyCODONE IR (ROXICODONE) 10 mg tab Take 1 tablet by mouth every 4 hours as needed for pain for up to 7 days. Do not start before September 28, 2023. - diclofenac (VOLTAREN ARTHRITIS PAIN) 1 % topical gel Apply 2 g to affected area two times a day. - lidocaine (LIDODERM) 5 % Take as instructed on package - tiZANidine (ZANAFLEX) 2 mg tablet Take 3 tablets by mouth every 8 hours. - gabapentin (NEURONTIN) 300 mg capsule Take 1 capsule by mouth every 8 hours for 30 days. - acetaminophen (TYLENOL) 325 mg tablet 2 tablets by ORAL/FEEDING TUBE route every 4 hours. - senna-docusate (SENNA-S) 8.6-50 mg per tablet Take 2 tablets by mouth two times a day. - carvedilol (COREG) 12.5 mg tablet Take 12.5 mg by mouth two times a day with meals. Problem List As Of Date 09/30/2023 Noted Resolved BENIGN NEOPLASM SKIN NEC-exam [D23.9] 08/05/2008 UNCERTAIN BEHAV NEOPL SKIN [D48.5] 08/05/2008 BENIGN NEOPLASM SKIN NOS [D23.9] 09/08/2008 SEBORRHEIC KERATOSIS NOS [L82.1] 09/08/2008 Primary hypertension [I10] 08/06/2023 History of penicillin allergy [Z88.0] 08/06/2023 SVT (supraventricular tachycardia) (HCC) [I47.1*08/06/2023 S/P lumbar fusion [Z98.1] 08/19/2023 Acute post-operative pain [G89.18] 08/20/2023 Scoliosis of lumbar region due to degenerative *08/20/2023 Foot drop, right foot [M21.371] 08/20/2023 Intractable pain [R52] 09/08/2023 Edema of both lower extremities [R60.0] 09/08/2023 Localized swelling of lower extremity [M79.89] 09/08/2023 Pain and swelling of lower extremity [M79.606, *09/08/2023 Encounter Status:Closed by JULIANNE BROCK on 09/30/23 [facility] 09-24-2023 CNPN Telephone (SPNSMN) BRADEN RODRIGUEZ ([id number]) 1955 Date Time Provider Department 09/24/23 ANGELINA MAJOR [facility] During your visit today, we recorded the following information about you: Angelina Major LSW 09/24/2023 12:58 PM Signed CM was able to leave a brief detailed message on identified vm requesting call back to discuss post op care. CM provided contact information. Angelina Major LSW 09/24/2023 1:04 PM Signed CARE CONTINUUM ADVISOR ASSESSMENT PRIMARY CARE PHYSICIAN: Ester Cain MD OR Surgery Date: 10/02/23 Health Insurance: [employer] Financial Resources: Retired Primary Contact: Extended Emergency Contact Information Primary Emergency Contact: Marycarmen Rodriguez Address: [address] [place] [address] [place] Mobile Relation: Spouse Secondary Emergency Contact: NORA RODRIGUEZ Mobile Relation: Son Other Important Patient Contacts: None Patient/Representativ e Stated Goals: To have reduction in pain, To have reduction in symptoms, To improve my functional status, and To return home to life as it was 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 Yes, requested copies for chart Does Patient Have Concerns About Advance Directives? No Education Provided: No SOCIAL: Living Arrangement: Home Lives With: Spouse Stairs: 2 story home Do you have any concerns with food and/or affording food?: No Do you have reliable transportation to and from surgery/appointments? : Yes Medication Adherence: Do you have any concerns with your prescription medication?: No Who do you use for pharmacy?: [facility] pharmacy d/c Pre-Hospital Baseline Mental Status: Alert AND Oriented Informant: Self What is your current functional status?: Perform ADLs independently Equipment: Do you currently use any equipment at home for your medical condition or to help you get around? Walker Active Services/Needs: None Fall: none reported Do you have a community mental health worker contact through your insurance or AAA?: No Has the Patient Been in a Residential Facility in the Past 30 days? No FREEDOM OF CHOICE: Level of Care Discussed: Home Care Financial Disclosure Provided: No Financial Disclaimer Provided: No Provider List: Home Care Provider list within the patient's requested geographic area shared with the patient/family: Yes - Within [address] [place] [address] Provider Choices Collected Home Health: no prefernece Interventions: N/A SIGNATURE: DALLAS Barros PATIENT NAME: Braden Rodriguez DATE: September 24, 2023 TIME: 1:00 PM PAGER/CONTACT #: Allergies As of Date: 09/24/2023 Noted Allergy Reaction PENICILLINS 07/04/2006 2 - Rash Date Reviewed: 09/09/2023 Reviewed by: Hui Whyte MD - Fully Assessed Reason for Visit: CARE CONTINUUM ADVISOR ASSESSMENT [Other] Prescriptions as of 09/24/2023 - oxyCODONE IR (ROXICODONE) 10 mg tab Take 1 tablet by mouth every 4 hours as needed for pain for up to 7 days. Do not start before September 28, 2023. - diclofenac (VOLTAREN ARTHRITIS PAIN) 1 % topical gel Apply 2 g to affected area two times a day. - lidocaine (LIDODERM) 5 % Take as instructed on package - tiZANidine (ZANAFLEX) 2 mg tablet Take 3 tablets by mouth every 8 hours. - gabapentin (NEURONTIN) 300 mg capsule Take 1 capsule by mouth every 8 hours for 30 days. - acetaminophen (TYLENOL) 325 mg tablet 2 tablets by ORAL/FEEDING TUBE route every 4 hours. - senna-docusate (SENNA-S) 8.6-50 mg per tablet Take 2 tablets by mouth two times a day. - carvedilol (COREG) 12.5 mg tablet Take 12.5 mg by mouth two times a day with meals. Problem List As Of Date 09/24/2023 Noted Resolved BENIGN NEOPLASM SKIN NEC-exam [D23.9] 08/05/2008 UNCERTAIN BEHAV NEOPL SKIN [D48.5] 08/05/2008 BENIGN NEOPLASM SKIN NOS [D23.9] 09/08/2008 SEBORRHEIC KERATOSIS NOS [L82.1] 09/08/2008 Primary hypertension [I10] 08/06/2023 History of penicillin allergy [Z88.0] 08/06/2023 SVT (supraventricular tachycardia) (HCC) [I47.1*08/06/2023 S/P lumbar fusion [Z98.1] 08/19/2023 Acute post-operative pain [G89.18] 08/20/2023 Scoliosis of lumbar region due to degenerative *08/20/2023 Foot drop, right foot [M21.371] 08/20/2023 Intractable pain [R52] 09/08/2023 Edema of both lower extremities [R60.0] 09/08/2023 Localized swelling of lower extremity [M79.89] 09/08/2023 Pain and swelling of lower extremity [M79.606, *09/08/2023 Encounter Status:Closed by ANGELINA MAJOR on 09/24/23 [facility] MICHAELBRADEN Hackett ([id number]) 1955 M Date Time Provider Department 09/16/23 KATHERINE KEITH During your visit today, we recorded the following information about you: Don Restrooms Or Lounges MaidMelia Vieyra 09/16/2023 3:19 PM Signed Call received for Katherine Keith MD regarding Braden Rodriguez. Caller: Other: Devin with [facility] Patient Identified by Name and : Yes Reason for Call: Devin is calling to notify Dr. Keith that patient has not been seen for PT Devin states patient will not return calls Is there any additional information the provider should know? No, no response needed Last Office Visit: 09/04/2023 Next scheduled appointment: 10/08/2023 Best number to reach caller: Devin [phone] Best time to reach caller: 9 am till 5 pm Is it OK to leave a detailed voice message? Yes Wellington Valenzuela, RN 09/16/2023 3:37 PM Signed Attempted to return call to home care PT Patient is coming back in for surgery in 2 weeks. Does not nee home care at this time. Allergies As of Date: 09/16/2023 Noted Allergy Reaction PENICILLINS 07/04/2006 2 - Rash Date Reviewed: 09/09/2023 Reviewed by: Hui Whyte MD - Fully Assessed Reason for Visit: Patient Update [1234] Prescriptions as of 09/16/2023 - oxyCODONE IR (ROXICODONE) 10 mg tab Take 1 tablet by mouth every 4 hours as needed for pain for up to 7 days. - diclofenac (VOLTAREN ARTHRITIS PAIN) 1 % topical gel Apply 2 g to affected area two times a day. - lidocaine (LIDODERM) 5 % Take as instructed on package - tiZANidine (ZANAFLEX) 2 mg tablet Take 3 tablets by mouth every 8 hours. - gabapentin (NEURONTIN) 300 mg capsule Take 1 capsule by mouth every 8 hours for 30 days. - acetaminophen (TYLENOL) 325 mg tablet 2 tablets by ORAL/FEEDING TUBE route every 4 hours. - senna-docusate (SENNA-S) 8.6-50 mg per tablet Take 2 tablets by mouth two times a day. - carvedilol (COREG) 12.5 mg tablet Take 12.5 mg by mouth two times a day with meals. Problem List As Of Date 09/16/2023 Noted Resolved BENIGN NEOPLASM SKIN NEC-exam [D23.9] 08/05/2008 UNCERTAIN BEHAV NEOPL SKIN [D48.5] 08/05/2008 BENIGN NEOPLASM SKIN NOS [D23.9] 09/08/2008 SEBORRHEIC KERATOSIS NOS [L82.1] 09/08/2008 Primary hypertension [I10] 08/06/2023 History of penicillin allergy [Z88.0] 08/06/2023 SVT (supraventricular tachycardia) (HCC) [I47.1*08/06/2023 S/P lumbar fusion [Z98.1] 08/19/2023 Acute post-operative pain [G89.18] 08/20/2023 Scoliosis of lumbar region due to degenerative *08/20/2023 Foot drop, right foot [M21.371] 08/20/2023 Intractable pain [R52] 09/08/2023 Edema of both lower extremities [R60.0] 09/08/2023 Localized swelling of lower extremity [M79.89] 09/08/2023 Pain and swelling of lower extremity [M79.606, *09/08/2023 Encounter Status:Closed by WELLINGTON CASTANEDA on 09/16/23 Normal [facility] CNCOon 09-15-2023 CNCO Letter Text Normal [facility] ALLIED HEALTHon 09-10-2023 ALLIED HEALTH HNO ID: [id number] Author: ROSAMARIA DOLAN RT(R) Service: Radiology Author Type: Technologist Type: Allied Health Filed: 09/10/2023 13:39 Note Text: Radiology Service Progress Note PATIENT NAME: Braden Rodriguez DATE OF SERVICE: September 10, 2023 TIME: 1:39 PM PATIENT IDENTITY VERIFICATION COMPLETED USING TWO [...] PATIENT PRESENTS WITH AN IMPLANTABLE OR ATTACHED OFFICE AUDITOR: No RADIOLOGY DEPARTMENT: MR; Exam(s) Completed: Spine: Lumbar spine PERIPHERAL IV DATA: Inpatient: see LDA documentation SIGNED BY: Rosamaria Dolan RT(R) September 10, 2023 1:39 PM Normal [facility] Basic metabolic 2000 panelon 09-10-2023 Anion gap [Moles/Vol] 10 mmol/L Normal 8-15 [facility] Comment on above: Order Comment: Speci men Type: BLOOD SPECIMEN [facility] Address: [address] [place] [address] Performed By: #### 2 4321-2 #### [facility] CLIA [id number] [address] [place] [address] [place] Calcium [Mass/Vol] 9.6 mg/dL Normal 8.5-10.2 [facility] Comment on above: Order Comment: Speci men Type: BLOOD SPECIMEN [facility] Address: [address] [place] [address] Performed By: #### 2 4321-2 #### [facility] CLIA [id number] [address] [place] [address] [place] Chloride [Moles/Vol] 102 mmol/L Normal 98-107 [facility] Comment on above: Order Comment: Speci men Type: BLOOD SPECIMEN [facility] Address: [address] [place] [address] Performed By: #### 2 4321-2 #### [facility] CLIA [id number] [address] [place] [address] [place] CO2 [Moles/Vol] 27 mmol/L Normal 22-30 [facility] Comment on above: Order Comment: Speci men Type: BLOOD SPECIMEN [facility] Address: [address] [place] [address] Performed By: #### 2 4321-2 #### [facility] CLIA [id number] [address] [place] [address] [place] Creatinine [Mass/Vol] 0.88 mg/dL Normal 0.73-1.22 [facility] Comment on above: Order Comment: Speci men Type: BLOOD SPECIMEN [facility] Address: [address] [place] [address] Performed By: #### 2 4321-2 #### [facility] CLIA [id number] [address] [place] [address] [place] Creatinine and Glomerular filtration rate.predicted panel (S/P/Bld) 95 mL/min/1.73m??? Normal >=60 [facility] Comment on above: Order Comment: Speci men Type: BLOOD SPECIMEN [facility] Address: [address] [place] [address] Result Comment: Yesica mated Glomerular Filtration Rate [...] actual GFR. Performed By: #### 2 4321-2 #### [facility] CLIA [id number] [address] [place] [address] [place] Glucose [Mass/Vol] 82 mg/dL Normal 74-99 [facility] Comment on above: Order Comment: Speci men Type: BLOOD SPECIMEN [facility] Address: [address] [place] [address] Result Comment: The [place] Diabetes Association (ADA) provides guidance for cutoff [...] Standards of Medical Care in Diabetes 2016, [place] Diabetes Association. Diabetes Care. 2016.39(Suppl 1). Performed By: #### 2 4321-2 #### [facility] CLIA [id number] [address] [place] [address] [place] Potassium [Moles/Vol] 4.3 mmol/L Normal 3.7-5.1 [facility] Comment on above: Order Comment: Speci men Type: BLOOD SPECIMEN [facility] Address: [address] [place] [address] Performed By: #### 2 4321-2 #### [facility] CLIA [id number] [address] [place] [address] [place] Sodium [Moles/Vol] 139 mmol/L Normal 136-144 [facility] Comment on above: Order Comment: Speci men Type: BLOOD SPECIMEN [facility] Address: [address] [place] [address] Performed By: #### 2 4321-2 #### [facility] CLIA [id number] [address] [place] [address] [place] Urea nitrogen [Mass/Vol] 22 mg/dL Normal 9-24 [facility] Comment on above: Order Comment: Speci men Type: BLOOD SPECIMEN [facility] Address: [address] [place] [address] Performed By: #### 2 4321-2 #### [facility] CLIA [id number] [address] [id number] [facility] CASE MANAGEMon 09-10-2023 CASE MANAGEM HNO ID: [id number] Author: MAREK SOL RN Service: ? Author Type: Registered Nurse Type: Care Mgt Progress Note Filed: 09/10/2023 15:45 Note Text: CARE MANAGEMENT DISCHARGE NOTE SERVICE DATE: September 10, 2023 SERVICE TIME: 3:43 PM Admission Date: 09/07/2023 LOS: 2 days Discharge Arrangement Discharge Arrangement: Home with Home Health Services Arranged Medical Services: Skilled Home Health Care Type: Home Health Agency Caregiver Assessment Caregiver is ready, willing and able to meet the patient's needs as recommended by the inter-professional team: No Caregiver needed Transportation Arrangements Transportation Arrangements: Car Date of Trip: 09/10/23 Destination: [address] [place] [id number] Handoff Communication: Handoff to: Primary Care Physician;Other Caregiver Primary Care Physician Name/Phone: Ester Cain MD [phone] Other Caregiver Name/Phone: [facility] Additional Information: N/A Discharge Information Row Name ED to Hosp-Admission (Current) from 09/07/2023 in HOSP MAIN H060 Home Health Care Agency [facility] Start of Care 09/12/23 Patient will discharge home today with [facility]. [facility] accepting with SOC 24-48 hrs from discharge. Contact info for HC agency placed on After Visit Summary for patient. DC paperwork sent to HC agency via [employer]. Daughter to transport. SIGNATURE: Marek Sol RN PATIENT NAME: Braden Rodriguez DATE: September 10, 2023 TIME: 3:42 PM CONTACT #: [phone] [facility] CASE MANAGEM HNO ID: [id number] Author: MAREK SOL RN Service: ? Author Type: Registered Nurse Type: Erik Mgt Progress Note Filed: 09/10/2023 13:16 Note Text: CARE MANAGEMENT PROGRESS NOTE SERVICE DATE: 09/10/2023 SERVICE TIME: 1:11 PM LOS: 2 days CM Update Re-admit for right leg pain and swelling. Anticipate DC home today following MRI. Skilled for Home PT with [facility] accepting. Daughter to transport. CM will follow. SIGNATURE: Marek Sol RN PATIENT NAME: Braden Rodriguez DATE: September 10, 2023 TIME: 1:11 PM PAGER/CONTACT #: [phone] Normal [facility] CNDSon 09-10-2023 CNDS HNO ID: [id number] Author: CHILANGO COTTO PA-C Service: Neurosurgery Author Type: Physician Mold Washer Type: Discharge Summary Filed: 09/10/2023 15:11 Note Text: Attestation signed by Katherine Keith MD at 09/14/2023 11:01 AM Katherine Keith MD DISCHARGE SUMMARY [facility] PATIENT NAME: Braden Rodriguez ADMISSION DATE: 09/07/2023 DISCHARGE DATE: 09/10/2023 Attending Physician: Katherine Keith MD PCP: Ester Cain MD [phone] Code Status: Full Code Discharged Against Medical Advice? No Highest Readmission Risk Score: 15 The 30 day readmissions risk score is derived from an internally validated risk model which evaluates patient level characteristics, utilization history, medication orders and lab results up until the day of discharge. Patients with a score of 40 or above are considered highest risk for readmission. Specific patient level drivers will be listed at the bottom of the summary. The 30 day readmissions risk score is derived from an internally validated risk model which evaluates patient level characteristics, utilization history, medication orders and lab results up until the day of discharge. Patients with a score of 40 or above are considered highest risk for readmission. Specific patient level drivers will be listed at the bottom of the summary HPI: Operations During Hospitalization: : None Operative Duration: * Surgery not found * Implants Used for Surgery: * No surgical log found * Surgical Specimens: * Cannot find log * Incision/Procedure Start Time: Incision Close/Procedure End Time: * Surgery not found * * Surgery not found * Procedures During Hospitalization: No procedures performed Hospital Course: 68 yo M w/ hx of HTN and prior lumbar stenosis s/p laminectomies, most recently s/p L2-5 OLIF (08/19/23, Dr. Keith), who presents with worsening BLE edema and pain. XR lumbar spine shows intact hardware and normal alignment. CT L spine does not show any fractures or lucency around hardware. Patient has bilateral foot drop, which is stable since surgery, with interval development of BLE edema. Incisions are healing well with no evidence of infection or swelling. Etiology of BLE edema unclear, though unlikely related to recent surgery. Patient was admitted to internal medicine service. DVT US was negative and trial of lasix and JULIA hose was completed for lower extremity swelling. MRI of the lumbar spine was unremarkable. Pain medications were titrated. The patient was discharged home with plan to readmit for surgery later this month. Active Hospital Problems as of 09/10/2023 Noted - Resolved [facility] Primary hypertension 08/06/2023 - Present Yes S/P lumbar fusion 08/19/2023 - Present Yes * (Principal) Intractable pain 09/08/2023 - Present Yes Edema of both lower extremities 09/08/2023 - Present Yes Localized swelling of lower extremity 09/08/2023 - Present Unknown Pain and swelling of lower extremity 09/08/2023 - Present Unknown Resolved Hospital Problems as of 09/10/2023 None The patient was discharged on POD # * No surgery found * in stable condition. Complete and comprehensive discharge instructions were provided to the patient as well as necessary prescriptions. The patient had no further questions and was advised to call with any questions, concerns, or problems. Consulting Teams During Hospitalization: Internal Medicine Treatment Team: Attending Provider: Katherine Keith MD Primary Service: Chilango Cotto PA-C Patient's pain was well controlled with Oral Pain Medications. Physical Therapy was started on POD # 1. Patient progressed satisfactorily through physical therapy until discharge. Based upon the appropriate milestones the patient met during the hospital course, Physical Therapy recommended patient be discharged to home with [facility]. Relevant labs included: CBC: Recent Labs 09/07/232047 WBC 13.43* HB 12.5* HCT 38.1* PLT 285 MCV 99.2 RDWCV 13.3 NEUTP 77.4 ABSNEUT 10.39* LYMPHP 12.2 MONOP 10.4 COAG: No results for input(s): APTT , INR in the last 168 hours. BMP: Recent Labs 09/10/23 0858 09/09/23 0808 09/07/232047 GLUC 82 123* 90 NA 139 139 141 K 4.3 4.4 3.8 CHLOR 102 101 105 CO2 27 25 26 ANION 10 13 10 BUN 22 25* 29* CREAT 0.88 0.99 0.93 CHEM: Recent Labs 09/10/2358 09/09/23 0808 09/07/232047 ALB -- 3.9 4.0 TPROT -- -- 6.0* CA 9.6 9.7 9.7 MG -- 2.1 2.1 P -- 3.3 -- HEPATIC: Recent Labs 09/07/232047 ALKPHOS 136* ALT 20 AST 19 TBILI 0.6 URINALYSIS: Recent Labs 09/07/23 2311 SPGR 1.007 UGLUC Negative UBILI Negative UKET Negative UHB Negative UPROT Negative UWBC 0-5 /HPF CARDIAC: Recent Labs 09/07/232047 (more content not included)... Normal [facility] MRI LUMBAR SPINE WO IVCONon 09-10-2023 MRI LUMBAR SPINE WO IVCON * * *Final Report* * * DATE OF EXAM: Sep 10 2023 2:04PM QBM 0303 - MRI LUMBAR SPINE WO IVCON / PROCEDURE REASON: Post operative complication suspected * * * * Physician Interpretation * * * * EXAMINATION: MRI LUMBAR SPINE WO IVCON CLINICAL HISTORY: Post operative complication suspected TECHNIQUE: Routine lumbosacral spine MR protocol without gadolinium. MQ: [id number] COMPARISON: CT lumbar spine 09/07/2023, MRI lumbar spine 08/20/2023 RESULT: Counting reference: Lumbosacral junction. For the purposes of this report, L4-5 is considered the level of the iliac crest and there are 5 lumbar-type vertebrae. Anatomic variant: Transitional L5 vertebral body. Localizer images: No additional findings. Alignment: Dextroconvex curvature of the upper lumbar spine apex at L2. 6 levoconvex curvature of the lower lumbar spine apex at L4. Minimal degenerative retrolisthesis of L1 on L2. Fixed minimal retrolisthesis of L3 on L4. Postoperative changes: Postoperative changes of L3-L5 posterior decompressive laminectomy, L2-L5 discectomy with interbody spacers, and L2-L5 posterior instrumented fixation with transpedicular screws and interconnecting rods. Susceptibility artifact from hardware limits complete evaluation of the adjacent anatomy. Bone marrow signal/fracture: No evidence of pathologic marrow infiltration. No evidence of prior fracture. Scattered degenerative disc disease with disc desiccation and mild height loss at T12-L2. Prominent Schmorl's nodes within the marginating T11-T12 endplates. Conus: The conus terminates at L1 and is within normal limits of morphology and signal. Normal course and caliber of the descending cauda equina nerve roots. Paraspinal soft tissues: Disruption of the posterior paraspinal soft tissues overlying the operative bed. No loculated collections. Lower thoracic spine: Shallow disc bulges at T10-11 and T12-L1 resulting in mild spinal canal narrowing. No high-grade thoracic spinal canal stenosis. Mild bilateral neural foraminal narrowing at T10-T11 secondary to bilateral facet arthropathy. L1-L2: Mild spinal canal and mild RIGHT neural foraminal narrowing secondary to shallow disc bulge, bilateral ligamentum flavum infolding, and bilateral facet arthropathy. L2-L3: Posterior decompression without significant residual spinal canal narrowing. Moderate bilateral neural foraminal narrowing secondary to facet arthropathy and shallow residual annular bulge. L3-L4: Posterior decompression without significant residual spinal canal narrowing. Moderate bilateral neural foraminal narrowing secondary to facet arthropathy and shallow residual annular bulge. L4-L5: Posterior decompression without significant residual spinal canal narrowing. Severe RIGHT and moderate LEFT neural foraminal narrowing secondary to facet arthropathy and shallow residual annular bulge. L5-S1: Canal and foramina are patent Sacrum and iliac wings: The visualized sacrum and iliac wings are within normal limits. IMPRESSION: Postoperative and degenerative changes, as detailed. No evidence of acute complication. Anatomic Lumbar Variant: Transitional L5 vertebral body. L4-5 is considered the level of the iliac crest and there are 5 lumbar-type vertebrae. 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: [employer]on[employer] Transcribe Date/Time: Sep 10 2023 2:41P Dictated by : NEREIDA ORTIZ MD This examination was interpreted and the report reviewed and electronically signed by: NEREIDA ORTIZ MD on Sep 10 2023 2:53PM EST [id number] Normal [facility] THERAPY NTon 09-10-2023 THERAPY NT HNO ID: [id number] Author: TERESA DE GUZMAN, PT Service: Physical Therapy Author Type: Physical Therapist Type: Therapy (PT/OT/Speech/Resp) Filed: 09/10/2023 15:12 Note Text: Physical Therapy Treatment Summary SERVICE DATE: 09/10/2023 SERVICE TIME: 1412 to 1427 ROOM: [place] [address] PT 6 Clicks Score: 20 DISCHARGE RECOMMENDATIONS Home PT Recommended Discharge Equipment: No equipment needs anticipated ASSESSMENT Response to Therapy Interventions: Good Participation in Activities, On-Track to Achieve Discharge Goals, Pain, Requires Additional Time to Complete Activities VSS on RA; Pt seated in chair upon entry with questions regarding discharge and resuming activity prior to scheudled sx on 10/02/23. PT provided verbal and written education concerning home safety. walking program and stair training with pt verbalizing understanding and satisfaction with answers provided. PRECAUTIONS Spine CURRENT HOSPITAL COURSE most recently s/p L2-5 OLIF (08/19/23, Dr. Keith), who presents with worsening BLE edema and pain Relevant Past Medical History: bilateral foot drop, wears an AFO brace, 3 previous lumbar surgeries with the last in 2019, HTN HOME LIVING Patient Lives With: Spouse Assistance Available: 24-Hour Entry To Home: Stairs Number Of Stairs Into Home: 4 Number Of Stairs To Bed/Bath: 14 Stairs to Bed/Bath with: Unilateral Rail Tub/Shower Type: tub combo Laundry: basement, spouse can assist Equipment Owned: Walker- Wheeled, Shower Chair PRIOR FUNCTIONAL LEVEL Within Functional Limits Pt reports prior to most recent surgery, was IND with ADLs and most IADLs 2/2 pain. Since discharged home from hospital earlier this month, requiring assist for LB ADLs and IADLs 2/2 pain. Amb with cane or WW and B AFOs (though unable to wear AFOs with acute edema). SUBJECTIVE pt agreeable to PT THERAPY DIAGNOSIS Reduced mobility-other, Unsteadiness on feet, Abnormalities of gait and mobility-other TREATMENT INTERVENTIONS Therapeutic Activity (53554) Treatment Minutes: 15 $ Therapeutic Activity (23272) Billed Units: 1 unit Therapeutic Activity (96224) Timed Code Treatment (minutes): 15 Skilled Treatment Time (minutes): 15 TRAINING AND EDUCATION PROVIDED Benefits of In-Hospital Mobility, Energy Conservation, Expected Functional Level, Falls Prevention, Home Safety, Patient Exercise/Therapy Program Support Needs, Positioning, Role of Physical Therapy, Sitting Balance, Transfers, Pain Neuroscience, Assistive Device Use THERAPEUTIC SKILLS USED Activity Dosing, Assessment of Tolerance Including Vitals Response to Activity, Cues for Sequencing/Proper Technique for Activity, Cuing Verbal, Cuing Visual, Facilitation of Joint Range of Motion, Movement Facilitation, Physical Assist, Teach-Back for Education, Postural Alignment Correction FUNCTIONAL STATUS Bed Mobility Rolling: Stand By Assistance Supine To Sit: Stand By Assistance Sit to Supine: Stand By Assistance Scooting: Stand By Assistance Transfers Sit To Stand: Contact Guard Assistance Stand To Sit: Contact Guard Assistance Bed to Chair Contact Guard Assistance Bed To Chair Transfer Type: Stepping Bed To Chair Transfer Equipment: Wheeled Walker Gait Contact Guard Assistance Gait Device: Wheeled Walker Gait Distance (feet): 150, 20, 20 (seated rest between trials) (09/09/23) Stairs GOALS Patient will demonstrate progress with functional mobility to allow safe discharge to home with available support and/or physical assistance. Rehab Potential: Good Progress Toward Goals: Progressing as expected PLAN PT Frequency: Discontinue Therapy Services Reasons Therapy Services Discontinued: Goals met Treatment Interventions: Education, Energy Conservation Training, Self Care / Home Management, Joint Mobility, Strengthening, Functional Mobility Training, Balance Training, Neuromuscular Re-education Plan for Next Visit: Gait Training, Stair Training SIGNATURE: Teresa De Guzman, PT PATIENT NAME: Braden Rodriguez DATE: September 10, 2023 TIME: 3:12 PM Normal [facility] Magnesium Camryn-Darren 09-08 Magnesium [Mass/Vol] 2.1 mg/dL Normal 1.7-2.3 [facility] Comment on above: Order Comment: Speci men Type: BLOOD SPECIMEN Ordering Facility: [facility] Address: [address] [place] [address] [place] [address] Performed By: #### 2 4362-6, #### [facility] CLIA [id number] [address] [place] [address] [place] Renal function 2000 panelon 09-09-2023 Albumin [Mass/Vol] 3.9 g/dL Normal 3.9-4.9 [facility] Comment on above: Order Comment: Speci men Type: BLOOD SPECIMEN Ordering Facility: [facility] Address: [address] [place] [address] Performed By: #### 2 4362-6, #### [facility] CLIA [id number] [address] [place] [address] [place] Anion gap [Moles/Vol] 13 mmol/L Normal 8-15 [facility] Comment on above: Order Comment: Speci men Type: BLOOD SPECIMEN Ordering Facility: [facility] Address: [address] [place] [address] Performed By: #### 2 4362-6, #### [facility] CLIA [id number] [address] [place] [address] [place] Calcium [Mass/Vol] 9.7 mg/dL Normal 8.5-10.2 [facility] Comment on above: Order Comment: Speci men Type: BLOOD SPECIMEN Ordering Facility: [facility] Address: [address] [place] [address] Performed By: #### 2 4362-6, #### [facility] CLIA [id number] [address] [place], [place] [id number] [place] Chloride [Moles/Vol] 101 mmol/L Normal 98-107 [facility] Comment on above: Order Comment: Speci men Type: BLOOD SPECIMEN Ordering Facility: [facility] Address: [address] [place] [address] Performed By: #### 2 4362-6, #### [facility] CLIA [id number] [address] [place] [address] [place] CO2 [Moles/Vol] 25 mmol/L Normal 22-30 [facility] Comment on above: Order Comment: Roberto Carlos lion Type: BLOOD SPECIMEN Ordering Facility: [facility] Address: [address] [place] [address] Performed By: #### 2 4362-6, #### [facility] CLIA [id number] [address] [place] [address] [place] Creatinine [Mass/Vol] 0.99 mg/dL Normal 0.73-1.22 [facility] Comment on above: Order Comment: Roberto Carlos lion Type: BLOOD SPECIMEN Ordering Facility: [facility] Address: [address] [place] [address] Performed By: #### 2 4362-6, #### [facility] CLIA [id number] [address] [place] [address] [place] Creatinine and Glomerular filtration rate.predicted panel (S/P/Bld) 84 mL/min/1.73m??? Normal >=60 [facility] Comment on above: Order Comment: Roberto Carlos lion Type: BLOOD SPECIMEN Ordering Facility: [facility] Address: [address] [place] [address] Result Comment: Yesica mated Glomerular Filtration Rate [...] reflect actual GFR. Performed By: #### 2 4362-6, #### [facility] CLIA [id number] [address] [place] [address] [place] Glucose [Mass/Vol] 123 mg/dL High 74-99 [facility] Comment on above: Order Comment: Roberto Carlos lion Type: BLOOD SPECIMEN Ordering Facility: [facility] Address: [address] [place] [address] Result Comment: The [place] Diabetes Association (ADA) provides guidance for cutoff [...] Standards of Medical Care in Diabetes 2016, [place] [employer]. Diabetes Care. 2016.39(Suppl 1). Performed By: #### 2 4362-6, #### [facility] CLIA [id number] [address] [place] [address] [place] Phosphate [Mass/Vol] 3.3 mg/dL Normal 2.7-4.8 [facility] Comment on above: Order Comment: Roberto Carlos lion Type: BLOOD SPECIMEN Ordering Facility: [facility] Address: [address] [place] [address] Performed By: #### 2 4362-6, #### [facility] CLIA [id number] [address] [place] [address] [place] Potassium [Moles/Vol] 4.4 mmol/L Normal 3.7-5.1 [facility] Comment on above: Order Comment: Roberto Carlos lion Type: BLOOD SPECIMEN Ordering Facility: [facility] Address: [address] [place], [place] [address] Performed By: #### 2 4362-6, #### [facility] CLIA [id number] [address] [place], [place] [id number] [place] Sodium [Moles/Vol] 139 mmol/L Normal 136-144 [facility] Comment on above: Order Comment: Speci men Type: BLOOD SPECIMEN Ordering Facility: [facility] Address: [address] [place] [address] Performed By: #### 2 4362-6, #### [facility] CLIA [id number] [address] [place] [address] [place] Urea nitrogen [Mass/Vol] 25 mg/dL High 9-24 [facility] Comment on above: Order Comment: Speci men Type: BLOOD SPECIMEN Ordering Facility: [facility] Address: [address] [place] [address] Performed By: #### 2 4362-6, #### [facility] CLIA [id number] [address] [place] [address] [place] THERAPY NTon 09-09-2023 THERAPY NT HNO ID: [id number] Author: TERESA DE GUZMAN, PT Service: Physical Therapy Author Type: Physical Therapist Type: Therapy (PT/OT/Speech/Resp) Filed: 09/09/2023 13:29 Note Text: Physical Therapy Evaluation Summary SERVICE DATE: 09/09/2023 SERVICE TIME: 1033 to 1128 ROOM: [place] [address] PT 6 Clicks Score: 20 DISCHARGE RECOMMENDATIONS Home PT Recommended Discharge Equipment: To Be Determined ASSESSMENT Response to Therapy Interventions: Good Participation in Activities, On-Track to Achieve Discharge Goals, Low Activity Tolerance, Pain, Requires Additional Time to Complete Activities VSS on RA; Pt tolerated session fairly though with increased pain throughout. Pt able to complete ambulation and seated exercises with CGA and VC for safe completion. PT provided verbal and written educaiton concerning, HEP, pain neuroscience and safe return to function post-op with pt verbalizing understanding. PT to see for one additional visit for stair training prior to d/c. PRECAUTIONS Spine CURRENT HOSPITAL COURSE most recently s/p L2-5 OLIF (08/19/23, Dr. Keith), who presents with worsening BLE edema and pain Relevant Past Medical History: bilateral foot drop, wears an AFO brace, 3 previous lumbar surgeries with the last in 2019, HTN HOME LIVING Patient Lives With: Spouse Assistance Available: 24-Hour Entry To Home: Stairs Number Of Stairs Into Home: 4 Number Of Stairs To Bed/Bath: 14 Stairs to Bed/Bath with: Unilateral Rail Tub/Shower Type: tub combo Laundry: basement, spouse can assist Equipment Owned: Walker- Wheeled, Shower Chair PRIOR FUNCTIONAL LEVEL Within Functional Limits Pt reports prior to most recent surgery, was IND with ADLs and most IADLs 2/2 pain. Since discharged home from hospital earlier this month, requiring assist for LB ADLs and IADLs 2/2 pain. Amb with cane or WW and B AFOs (though unable to wear AFOs with acute edema). SUBJECTIVE pt agreeable to PT THERAPY DIAGNOSIS Reduced mobility-other, Unsteadiness on feet, Abnormalities of gait and mobility-other TREATMENT INTERVENTIONS $ Evaluation-Moderate (20387) Billed Units: 1 unit Therapeutic Exercise (90729) Treatment Minutes: 15 $ Therapeutic Exercise (85825) Billed Units: 1 unit Gait Training (92402) Treatment Minutes: 25 $ Gait Training (74163) Billed Units: 2 units Evaluation, Gait Training (00174), Therapeutic Exercise (33352) Timed Code Treatment (minutes): 40 Skilled Treatment Time (minutes): 55 TRAINING AND EDUCATION PROVIDED Anatomy and Impact on Deficits, Assistive Device Use, Bed Mobility, Benefits of In-Hospital Mobility, Disease Specific Education, Energy Conservation, Expected Functional Level, Exercise Program, Falls Prevention, Gait Pattern, Reduction of Deviations, Handout Issued, Home Safety, Patient Exercise/Therapy Program Support Needs, Positioning, Role of Physical Therapy, Sitting Balance, Standing Balance, Transfers, Pain Neuroscience THERAPEUTIC SKILLS USED Activity Dosing, Assessment of Tolerance Including Vitals Response to Activity, Cues for Sequencing/Proper Technique for Activity, Cuing Verbal, Cuing Visual, Facilitation of Joint Range of Motion, Movement Facilitation, Physical Assist, Teach-Back for Education, Postural Alignment Correction FUNCTIONAL STATUS Bed Mobility Rolling: Stand By Assistance Supine To Sit: Stand By Assistance Sit to Supine: Stand By Assistance Scooting: Stand By Assistance Transfers Sit To Stand: Contact Guard Assistance Stand To Sit: Contact Guard Assistance Bed to Chair Contact Guard Assistance Bed To Chair Transfer Type: Stepping Bed To Chair Transfer Equipment: Wheeled Walker Gait Contact Guard Assistance Gait Device: Wheeled Walker General Deviations/Observatio ns: Daphne decreased, Scissoring of LEs Gait Distance (feet): 150, 20, 20 (seated rest between trials) Gait Deviations Right Lower Extremity: Hip Hike, Steppage gait, Trendelenburg Gait Deviations Left Lower Extremity: Hip Hike, Steppage gait, Trendelenburg Stairs B seated LE exercises w/ red tband; 20x; hip flexion, hip abd, knee ext Exercise completed with cuing and assistance provided for proper pacing, alignment, and technique. GOALS Patient will demonstrate progress with functional mobility to allow safe discharge to home with available support and/or physical assistance. Rehab Potential: Good Progress Toward Goals: Progressing as expected PLAN PT Frequency: One Additional Visit Treatment Interventions: Education, Self Care / Home Management, Energy Conservation Training, Joint Mobility, Strengthening, Functional Mobility Training, Balance Training, Neuromuscular Re-education Plan for Next Visit: Gait Training, Stair Training SIGNATURE: Teresa De Guzman PT PATIENT NAME: Braden Rodriguez DATE: September 09, 2023 TIME: 1:28 PM Normal [facility] THERAPY NT HNO ID: [id number] Author: AGA GREENE OT/L Service: Occupational Therapy Author Type: Occupational Therapist Type: Therapy (PT/OT/Speech/Resp) Filed: 09/09/2023 12:20 Note Text: Occupational Therapy Evaluation Summary SERVICE DATE: 09/09/2023 SERVICE TIME: 1149 to 1208 ROOM: [place] [address] OT 6 Clicks Score: 20 DISCHARGE RECOMMENDATIONS Home Recommended Discharge Disposition Comments: Would benefit from Home OT to optimize independence with I/ADLs in home setting, but pt declining at this time Anticipated Discharge Needs: Physical Assist at Home, Equipment Physical Assist at Home for: Laundry, Cleaning, Meals, Shopping, Self Care, Transportation Recommended Discharge Equipment: Shower Chair, Court Bailiff ASSESSMENT Response to Therapy Interventions: Pain, Good Participation in Activities Pt reports difficulty with ADLs and IADLs post-op; receptive to use of dairy farm manager to assist with LB ADLs, though declining education on additional AE/DME at this time to maximize independendence with ADLs. Pt would likely benefit from Home OT to optimize independence with I/ADLs in home setting, but declining at this time. Pt denies any further OT needs at this time, thus OT will sign off. Please re-consult if additional OT needs arise. PRECAUTIONS Spine CURRENT HOSPITAL COURSE most recently s/p L2-5 OLIF (08/19/23, Dr. Keith), who presents with worsening BLE edema and pain Relevant Past Medical History: bilateral foot drop, wears an AFO brace, 3 previous lumbar surgeries with the last in 2019, HTN HOME LIVING Patient Lives With: Spouse Tub/Shower Type: tub combo Laundry: basement, spouse can assist Equipment Owned: Walker- Wheeled, Shower Chair PRIOR FUNCTIONAL LEVEL Within Functional Limits Pt reports prior to most recent surgery, was IND with ADLs and most IADLs 2/2 pain. Since discharged home from hospital earlier this month, requiring assist for LB ADLs and IADLs 2/2 pain. Amb with cane or WW and B AFOs (though unable to wear AFOs with acute edema). Baseline Cognition: Oriented to self, Oriented to place, Oriented to time, Oriented to situation SUBJECTIVE Honestly I don't think I would use any of that stuff anyway COGNITION Orientation Deficits: (AANDOx4) Responsiveness: Alert, Awake Cog 6 Start of Session Total Points (Max Score = 24): 24 (09/09/23) Cog 6 End of Session Total Points (Max Score = 24): 24 (09/09/23) 4AT Score: 0 (09/09/23) Delirium Positive/Negative: Negative (09/09/23) THERAPY DIAGNOSIS Decreased activities of daily living (ADL), Reduced mobility-other TREATMENT INTERVENTIONS Evaluation Skilled Treatment Time (minutes): 19 TRAINING AND EDUCATION PROVIDED Activity Adaptation/Compensato ry Strategies, Adaptive Equipment/DME, Benefits of In-Hospital Mobility, Disease Specific Education, Discharge Planning, Lower Extremity Dressing, Precautions/Restricti ons, Pain Management, Role of Occupational Therapy, Standing Balance to Improve [place] with ADLs/Self-Care, Transfer - Sit to Stand, Toileting , Transfer - Toilet/Commode THERAPEUTIC SKILLS USED Activity Dosing, Assessment of Tolerance Including Vitals Response to Activity, Cuing Verbal, Cuing Visual, Physical Assist, Therapeutic Use of Self, Task Analysis Learning, Teach-Back for Education FUNCTIONAL STATUS Activities of Daily Living Assist Level Additional Information Feeding Independent Grooming Modified Independent Bathing Upper Body Independent Bathing Lower Body Moderate Assistance Dressing Upper Body Independent Dressing Lower Body Moderate Assistance Toileting Modified Independent Mobility Assist Level Additional Information Bed Mobility Supine To Sit: Verbal Cues Only, Additional Information verbal cues for log roll technique Sit To Supine: Verbal Cues Only, Additional Information verbal cues for log roll technique Sit to Stand Supervision Stand to Sit Supervision Bed to Chair Toilet/Commode Supervision Shower Functional Mobility Supervision Functional Mobility Device: Wheeled Walker GOALS Patient will demonstrate understanding of importance of mobility during hospital stay and resolve all self-care, cognitive and/or coping needs identified. PLAN OT Frequency: Discontinue Therapy Services Reasons Therapy Services Discontinued: Declines care SIGNATURE: Aga Greene OT/L PATIENT NAME: Braden Rodriguez DATE: September 09, 2023 TIME: 12:19 PM Normal [facility] CASE MGT INIT ASSESon 2023 CASE MGT INIT ASSES HNO ID: [id number] Author: ZACHARY QUINTANA RN Service: Nursing Author Type: Registered Nurse Type: Care Mgt Initial Assessment Filed: 09/08/2023 09:49 Note Text: CARE MANAGEMENT: ASSESSMENT AND DISCHARGE PLAN SERVICE DATE: September 08, 2023 SERVICE TIME: 9:45 AM PCP: Ester Cain MD Primary Contact: Extended Emergency Contact Information Primary Emergency Contact: Marycarmen Rodriguez Address: [address] [place] [address] Mobile Relation: Spouse Admission Status: Inpatient Insurance Provider: [facility] CHOICE PLUS Discharge Planning requested by: Per Department Practice Potential Transition Plans To Be Determined Advance Directives Current Living Arrangements and Support Lives with: Spouse/significant other Type of Residence: Private Residence (House) Does the patient have to climb stairs at home?: stairs outside the home;stairs within the home;Yes Support: Spouse/significant other, Family members How do you manage to accomplish the following: Independent: Ambulation;Bathe/Show er;Dress;Meals/Meal Prep;Going to the bathroom;Medication Management;Transporta tion to appointments/communit y Current Services/Equipment Discharge Planning Patient Goal(s): Be able to go home, Increase strength, Less pain [place] [facility] [place] Explained: Are you interested in bedside delivery of your medications? Yes Discharge Planning Participant(s): Patient/Family Comments: Caregiver Assessment: Caregiver is ready, willing and able to meet the patient's needs as recommended by the inter-professional team: Other: See Comment (TBD) Transport at Discharge: Transportation Arrangements: To Be Determined Needs Prior to Discharge: Post-Acute Discharge Plan: Patient admitted 08/19/23-08/22/23 for L2-L5 OLIF and percutaneous PSF and discharged with [facility]. Readmitted on 09/07/23 for worsening BLE edema and pain. Awaiting PT/OT recs. Per Neuro no acute surgical intervention . CM will continue to follow. SIGNATURE: Zachary Quintana RN PATIENT NAME: Braden Rodriguez DATE: September 08, 2023 TIME: 9:45 AM CONTACT #: [phone] [facility] ED PROV NOTEon 09-08-2023 ED PROV NOTE HNO ID: [id number] Author: SINCERE KUHN MD Service: Emergency Medicine Author Type: Physician Type: ED Provider Notes Filed: 09/08/2023 00:38 Note Text: ED Provider Note Patient Name: Braden Rodriguez : 1955 SERVICE DATE: 09/07/23 History Patient presents with: Edema: Pt had L2-5 fusion and has been experiencing more pain in BL legs with swelling. Pt is on steroids, has taken lasix previously, and is not on blood thinners. HPI 68-year-old male status post recent L2 L5 fusion who presents with bilateral lower extremity swelling and significant pain. He has a history of a foot drop but he says it is worse. He is on steroids. He cannot deal with his pain. He is not on any blood thinners. He has no new trauma. He states he thinks his wounds have been doing well otherwise. He is now have to use a walker. He states his right leg was good before the surgery and now he can barely walk. He also states he has not had fevers chills or any infectious symptoms. 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 HENT: Negative for sore throat and trouble swallowing. Eyes: Negative for pain. Cardiovascular: Positive for leg swelling. Negative for chest pain. Gastrointestinal: Negative for abdominal pain, nausea and vomiting. Genitourinary: Negative for dysuria. Musculoskeletal: Positive for arthralgias and back pain. Skin: Negative for rash. Neurological: Negative for light-headedness and headaches. Psychiatric/Behaviora l: Negative for behavioral problems and confusion. Physical Exam Vitals [09/07/231913] BP Pulse Temp Temp src Resp SpO2 Weight Height 168/86 66 36.7 ?C (98 ?F) Oral 16 100 % -- -- Physical Exam Vitals and nursing note reviewed. Constitutional: Appearance: He is well-developed. HENT: Head: Normocephalic and atraumatic. Eyes: Conjunctiva/sclera: Conjunctivae normal. Pupils: Pupils are equal, round, and reactive to light. Cardiovascular: Rate and Rhythm: Normal rate and regular rhythm. Heart sounds: Normal heart sounds. No murmur heard. No friction rub. No gallop. Pulmonary: Effort: Pulmonary effort is normal. No respiratory distress. Breath sounds: Normal breath sounds. Abdominal: General: Bowel sounds are normal. Palpations: Abdomen is soft. Tenderness: There is no abdominal tenderness. Musculoskeletal: General: Normal range of motion. Cervical back: Normal range of motion and neck supple. Comments: Back incisions are clean dry and intact, no swelling, he has some residual bruising from his surgery. Lower extremity with trace pedal edema. Skin: General: Skin is warm and dry. Neurological: Mental Status: He is alert and oriented to person, place, and time. Psychiatric: Behavior: Behavior normal. Diagnostic Testing ED Labs Ordered and Reviewed COMPLETE BLOOD COUNT AND DIFFERENTIAL - Abnormal; Notable for the following components: Result Value Ref Range WBC 13.43 (*) 3.70 - 11.00 k/uL RBC 3.84 (*) 4.20 - 6.00 m/uL Hemoglobin 12.5 (*) 13.0 - 17.0 g/dL Hematocrit 38.1 (*) 39.0 - 51.0 % Abs Neut (Segs + Bands) 10.39 (*) 1.45 - 7.50 k/uL Abs Thayer 1.40 (*) <0.87 k/uL All other components within normal limits Narrative: This is an appended report. These results have been appended to a previously verified report. COMPREHENSIVE METABOLIC PANEL - Abnormal; Notable for the following components: Protein, Total 6.0 (*) 6.3 - 8.0 g/dL Alkaline Phosphatase 136 (*) 38 - 113 U/L BUN 29 (*) 9 - 24 mg/dL All other components within normal limits NT PRO BNP - Abnormal; Notable for the following components: NT Pro BNP 153 (*) <125 pg/mL All other components within normal limits MAGNESIUM - Normal SEDIMENTATION RATE, WESTERGREN - Normal C-REACTIVE PROTEIN - Normal URINALYSIS, WITH MICROSCOPIC Narrative: This test was developed and its performance characteristics determined by [facility]'s [facility] [place] ([facility]). It has not been cleared or approved by the FDA. -[facility] is regulated under CLIA as qualified to perform high-complexity testing. This test is used for clinical purposes. It should not be regarded as investigation (more content not included)... Normal [facility] HISTORY PHYSICALon HISTORY PHYSICAL HNO ID: [id number] Author: TREVOR FRY MD Service: Hospital Medicine Author Type: Physician Type: H&P Filed: 09/08/2023 01:47 Note Text: DEPARTMENT OF HOSPITAL MEDICINE HISTORY AND PHYSICAL EXAM SERVICE DATE: 09/08/2023 SERVICE TIME: 1:23 AM Primary Care Physician: Ester Cain MD NIGHT AND WEEKEND COVERAGE: Days: [phone], please page primary service provider on [facility] for patient issues. Nights: [phone], please page [facility] Hospitalist Night Coverage pager: Subjective CHIEF COMPLAINT: leg pain, leg swelling HPI: This is a 68 year old male with past medical history of HTN, and prior lumbar stenosis s/p laminectomies, most recently s/p L2-5 OLIF (08/19/23, Dr. Keith), who presents with worsening BLE edema and pain. Patient had a left foot drop before surgery and now having consistent right foot drop and weakness of right leg. He was able to walk independently before surgery but now using a walker for ambulation. Also started having bilateral leg edema with numbness, burning, tingling and aching pain, not relieved with home Oxycodone 5mg q6h prn. Denied any bowel or bladder incontinence. Also taking PO steroid in tapering dose. Denied any trauma, headache, fever, chest pain, shortness of breath, cough, palpitation, hemoptysis, abdominal pain, nausea, vomiting, diarrhea or any urinary symptoms. In ER, vitals - stable, afebrile Labs: mild anemia and leucocytosis, otherwise, unremarkable US DVT bilateral : Negative Patient was seen by Neurosurgery who recommended no acute surgical intervention. PAST MEDICAL HISTORY Diagnosis Date Benign neoplasm [...] Alcohol use: Never Drug use: Never MEDICATIONS: Reviewed ALLERGIES Allergen Reactions Penicillins Rash REVIEW OF SYSTEM: 10 points system reviews were done and negative except for those mentioned in HPI. Objective PHYSICAL EXAM: BP 168/86 Pulse 70 Temp (Src) 98 (Oral) Resp 16 SpO2 98% O2 Therapy: Room Air GENERAL: Alert, no distress, cooperative SKIN: Skin color, texture, turgor normal. No rashes or lesions. HEAD/SINUSES: No significant findings EYES: PERRLA, EOMI NECK: No jugulovenous distention, Supple LUNGS: Bilateral equal air entry, no added sounds CARDIAC: Normal S1 and S2; no rubs, murmurs, or gallops ABDOMEN: soft, non-tender, BS normal, No masses or organomegaly EXTREMITIES: no deformities, no ulcers, no pedal edema NEURO: A and O x 3, 3/5 power right LE, 4/5 power right LE, bilateral foot drop+, sensory decreased from thigh PULSES: 2+ radial DATA: Diagnostic tests reviewed for today's visit: Most recent labs and imaging results. Assessment/Plan Patient Active Hospital Problem List: Intractable pain (09/08/2023) Primary hypertension (08/06/2023) S/P lumbar fusion (08/19/2023) Edema of both lower extremities (09/08/2023) 68 year old male with past medical history of HTN, and prior lumbar stenosis s/p laminectomies, most recently s/p L2-5 OLIF (08/19/23, Dr. Keith), who presents with worsening BLE edema and pain. #Intractable pain #lumbar stenosis s/p laminectomies, most recently s/p L2-5 OLIF (08/19/23, Dr. Keith) - Neurosurgery note appreciated - continue with Steroid tapering - Start Gabapentin 300mg tid - continue with Zanaflex 4mg tid prn - increased Oxycodone to 10mg q6h prn - get PT/OT #Bilateral lower extremities edema - no h/o CHF, renal failure or liver disease - likely salt and water retention from steroid, could be aggravated by inactivity post surgery resulting dependent edema - will give Lasix 40mg IV x 1 in am - might need short course of diuretics while on steroid #HTN - BP stable - continue with home Coreg 12.5mg bid CODE STATUS: Full Code VTE Prophylaxis: Heparin 5000 units Sub Q BID Disposition: To be determined Plan of care discussed with: Provider, RN, Patient SIGNATURE: Trevor Fry MD PATIENT NAME: Braden Rodriguez DATE: September 08, 2023 TIME: 1:23 AM Normal [facility] CBC W Auto Differential pane l (Bld)on 09-07-2023 Basophils (Bld) [#/Vol] 0.00 10*3/uL Normal <0.11 [facility] Comment on above: Order Comment: Roberto Carlos lion Type: BLOOD SPECIMEN Ordering Facility: [facility] Address: [address] [place] [address] Performed By: #### 5 7021-8, 4537-7 #### [facility] CLIA [id number] [address] [place] [address] [place] Basophils/100 WBC (Bld) 0.0 % Normal [facility] Comment on above: Order Comment: Roberto Carlos lion Type: BLOOD SPECIMEN Ordering Facility: [facility] Address: [address] [place] [address] Performed By: #### 5 7021-8, 4537-7 #### [facility] CLIA [id number] [address] [place] [address] [place] Differential cell count method Nom (Bld) Manual Normal [facility] Comment on above: Order Comment: Speci men Type: BLOOD SPECIMEN Ordering Facility: [facility] Address: [address] [place] [address] Performed By: #### 5 7021-8, 4537-7 #### [facility] CLIA [id number] [address] [place] [address] [place] Eosinophils (Bld) [#/Vol] 0.00 10*3/uL Normal <0.46 [facility] Comment on above: Order Comment: Speci men Type: BLOOD SPECIMEN Ordering Facility: [facility] Address: [address] [place] [address] Performed By: #### 5 7021-8, 4537-7 #### [facility] CLIA [id number] [address] [place] [address] [place] Eosinophils/100 WBC (Bld) 0.0 % Normal [facility] Comment on above: Order Comment: Speci men Type: BLOOD SPECIMEN Ordering Facility: [facility] Address: [address] [place] [address] Performed By: #### 5 7021-8, 4536-7 #### [facility] CLIA [id number] [address] [place] [address] [place] Erythrocyte distribution width (RBC) [Ratio] 13.3 % Normal 11.5-15.0 [facility] Comment on above: Order Comment: Speci men Type: BLOOD SPECIMEN Ordering Facility: [facility] Address: [address] [place] [address] Performed By: #### 5 7021-8, 7-7 #### [facility] CLIA [id number] [address] [place] [address] [place] Hematocrit (Bld) [Volume fraction] 38.1 % Low 39.0-51.0 [facility] Comment on above: Order Comment: Speci men Type: BLOOD SPECIMEN Ordering Facility: [facility] Address: [address] [place] [address] Performed By: #### 5 7021-8, 453-7 #### [facility] CLIA [id number] [address] [place] [address] [place] Hemoglobin (Bld) [Mass/Vol] 12.5 g/dL Low 13.0-17.0 [facility] Comment on above: Order Comment: Speci men Type: BLOOD SPECIMEN Ordering Facility: [facility] Address: [address] [place] [address] Performed By: #### 5 7021-8, 453-7 #### [facility] CLIA [id number] [address] [place] [address] [place] Lymphocytes (Bld) [#/Vol] 1.64 10*3/uL Normal 1.00-4.00 [facility] Comment on above: Order Comment: Speci men Type: BLOOD SPECIMEN Ordering Facility: [facility] Address: [address] [place] [address] Performed By: #### 5 7021-8, 4536-7 #### [facility] CLIA [id number] [address] [place] [address] [place] Lymphocytes/100 WBC (Bld) 12.2 % Normal [facility] Comment on above: Order Comment: Speci men Type: BLOOD SPECIMEN Ordering Facility: [facility] Address: [address] [place] [address] Performed By: #### 5 7021-8, 4536-7 #### [facility] CLIA [id number] [address] [place] [address] [place] MCH (RBC) [Entitic mass] 32.6 pg Normal 26.0-34.0 [facility] Comment on above: Order Comment: Speci men Type: BLOOD SPECIMEN Ordering Facility: [facility] Address: [address] [place] [address] Performed By: #### 5 7021-8, 4537-7 #### [facility] CLIA [id number] [address] [place] [address] [place] MCHC (RBC) [Mass/Vol] 32.8 g/dL Normal 30.5-36.0 [facility] Comment on above: Order Comment: Speci men Type: BLOOD SPECIMEN Ordering Facility: [facility] Address: [address] [place] [address] Performed By: #### 5 7021-8, 453-7 #### [facility] CLIA [id number] [address] [place] [address] [place] MCV (RBC) [Entitic vol] 99.2 fL Normal 80.0-100.0 [facility] Comment on above: Order Comment: Speci men Type: BLOOD SPECIMEN Ordering Facility: [facility] Address: [address] [place] [address] Performed By: #### 5 7021-8, 453-7 #### [facility] CLIA [id number] [address] [place] [address] [place] Monocytes (Bld) [#/Vol] 1.40 10*3/uL High <0.87 [facility] Comment on above: Order Comment: Speci men Type: BLOOD SPECIMEN Ordering Facility: [facility] Address: [address] [place] [address] Performed By: #### 5 7021-8, 4537-7 #### [facility] CLIA [id number] [address] [place] [address] [place] Monocytes/100 WBC (Bld) 10.4 % Normal [facility] Comment on above: Order Comment: Speci men Type: BLOOD SPECIMEN Ordering Facility: [facility] Address: [address] [place] [address] Performed By: #### 5 7021-8, 4537-7 #### [facility] CLIA [id number] [address] [place] [address] [place] Neutrophils (Bld) [#/Vol] 10.39 10*3/uL High 1.45-7.50 [facility] Comment on above: Order Comment: Speci men Type: BLOOD SPECIMEN Ordering Facility: [facility] Address: [address] [place] [address] Performed By: #### 5 7021-8, 4537-7 #### [facility] CLIA [id number] [address] [place] [address] [place] Neutrophils/100 WBC (Bld) 77.4 % Normal [facility] Comment on above: Order Comment: Speci men Type: BLOOD SPECIMEN Ordering Facility: [facility] Address: [address] [place] [address] Performed By: #### 5 7021-8, 4537-7 #### [facility] CLIA [id number] [address] [place] [address] [place] Nucleated RBC (Bld) [#/Vol] 10*3/uL Normal <0.01 [facility] Comment on above: Order Comment: Speci men Type: BLOOD SPECIMEN Ordering Facility: [facility] Address: [address] [place] [address] Performed By: #### 5 7021-8, 4537-7 #### [facility] CLIA [id number] [address] [place] [address] [place] Nucleated RBC/100 WBC (Bld) [Ratio] 0.0 /100 WBC Normal [facility] Comment on above: Order Comment: Speci men Type: BLOOD SPECIMEN Ordering Facility: [facility] Address: [address] [place] [address] Performed By: #### 5 7021-8, 4537-7 #### [facility] CLIA [id number] [address] [place] [address] [place] Platelet mean volume (Bld) [Entitic vol] 9.9 fL Normal 9.0-12.7 [facility] Comment on above: Order Comment: Speci men Type: BLOOD SPECIMEN Ordering Facility: [facility] Address: [address] [place] [address] Performed By: #### 5 7021-8, 4537-7 #### [facility] CLIA [id number] [address] [place] [address] [place] Platelets (Bld) [#/Vol] 285 10*3/uL Normal 150-400 [facility] Comment on above: Order Comment: Speci men Type: BLOOD SPECIMEN Ordering Facility: [facility] Address: [address] [place] [address] Performed By: #### 5 7021-8, 453-7 #### [facility] CLIA [id number] [address] [place] [address] [place] Platelets Estimate (Bld) [#/Vol] Adequate Normal [facility] Comment on above: Order Comment: Speci men Type: BLOOD SPECIMEN Ordering Facility: [facility] Address: [address] [place] [address] Performed By: #### 5 7021-8, 4536-7 #### [facility] CLIA [id number] [address] [place] [address] [place] RBC (Bld) [#/Vol] 3.84 10*6/uL Low 4.20-6.00 [facility] Comment on above: Order Comment: Speci men Type: BLOOD SPECIMEN Ordering Facility: [facility] Address: [address] [place] [address] Performed By: #### 5 7021-8, 4536-7 #### [facility] CLIA [id number] [address] [place] [address] [place] RED CELL MORPH Reviewed: unremarkable Normal [facility] Comment on above: Order Comment: Speci men Type: BLOOD SPECIMEN Ordering Facility: [facility] Address: [address] [place] [address] Performed By: #### 5 7021-8, 4537-7 #### [facility] CLIA [id number] [address] [place] [address] [place] [address] [place] WBC (Bld) [#/Vol] 13.43 10*3/uL High 3.70-11.00 [facility] Comment on above: Order Comment: Speci men Type: BLOOD SPECIMEN Ordering Facility: [facility] Address: [address] [place] [address] Performed By: #### 5 7021-8, 4537-7 #### [facility] CLIA [id number] [address] [place], [place] [address] [place] CONSULTon 09-07-2023 CONSULT HNO ID: [id number] Author: VIJAY DIEGO MD Service: Neurosurgery Author Type: Resident Type: Consults Filed: 09/08/2023 01:16 Note Text: NEUROSURGERY CONSULT HISTORY AND PHYSICAL EXAMINATION PLEASE DO NOT REMOVE FROM THE CHART OR MODIFY PRINTED COPY Patient Name: Braden Rodriguez CONSULTED BY: ED CONSULTED FOR: BLE pain CHIEF COMPLAINT: BLE edema and pain HPI: 68 yo M w/ hx of HTN and prior lumbar stenosis s/p laminectomies, most recently s/p L2-5 OLIF (08/19/23, Dr. Keith), who presents with worsening BLE edema and pain. XR lumbar spine shows intact hardware and normal alignment. Per patient, he had a prior L foot drop before surgery. Following surgery, he developed a R foot drop. He was started on steroids but has not had any improvement. MRI post op did not show any worsening compression or hematoma. The foot drop has remained constant, but the pain and edema of BLE is worsening. He describes the feeling as constant, aching, 9/10, circumferential, below the knees going towards the toes. Also describes significant symmetric swelling bilaterally, which did not resolve with lasix. He has no prior hx of heart failure or edema. Denies dyspnea or orthopnea. Given persistence of symptoms, patient presents to ER for evaluation. Denies recent episodes of chest pain/SOB, fever/chills, [place], abdominal pain, nausea/emesis, blurry vision, seizures, traumas/falls Anti-platelets/anti-c oagulants: none PAST MEDICAL HISTORY: PAST MEDICAL HISTORY Diagnosis Date Benign neoplasm of skin, site unspecified 08/2008 right anterior shoulder; Inflamed seborrheic keratosis 08/2008 left anterior axillary line PAST SURGICAL HISTORY: PAST SURGICAL HISTORY Procedure Laterality Date PAST SURGICAL HISTORY OF 2019 lumbar surgeries x 3 REMOVAL GALLBLADDER REPAIR INCISIONAL HERNIA,REDUCIBLE FAMILY HISTORY: FAMILY HISTORY Problem Relation Age of Onset Cancer Father malignant melanoma SOCIAL HISTORY: Social History Tobacco Use Smoking status: Never Smokeless tobacco: Former Types: Chew Quit date: 1999 Substance Use Topics Alcohol use: Never Drug use: Never MEDICATIONS: oxyCODONE IR (ROXICODONE) 5 mg immediate release tabletTake 1 tablet by mouth every 6 hours as needed for pain for up to 7 days. Do not start before September 04, 2023.Disp: 28 tabletRfl: 0 acetaminophen (TYLENOL) 325 mg tablet2 tablets by ORAL/FEEDING TUBE route every 4 hours.Disp: Rfl: methocarbamol (ROBAXIN) 750 mg tabletTake 1 tablet by mouth every 6 hours.Disp: 60 tabletRfl: 0 senna-docusate (SENNA-S) 8.6-50 mg per tabletTake 2 tablets by mouth two times a day.Disp: 20 tabletRfl: 0 carvedilol (COREG) 12.5 mg tabletTake 12.5 mg by mouth two times a day with meals.Disp: Rfl: No current facility-administered medications for this encounter. ALLERGIES: ALLERGIES Allergen Reactions Penicillins Rash COMPLETE REVIEW OF SYSTEMS: See HPI PHYSICAL EXAM: AAOx3 EOMI Speech intact No drift RUE Delt 5 Bi 5 Tri 5 HG 5 IO 5 LUE Delt 5 Bi 5 Tri 5 HG 5 IO 5 RLE HF 5 KE 5 DF 0 PF 5 EHL 0 LLE HF 5 KE 5 DF 0 PF 5 EHL 0 Negative Hoffmans Negative clonus Negative babinksi Cannot elicit patellar reflex Numbness bilateral toes, otherwise intact CV: Regular rate/rhythm Chest: Comfortable on room air Abdomen: Soft, NT/ND Back incisions c/d/I, closed with skin adhesive DATA: Radiology: See HPI Laboratory: Recent Labs 09/07/232047 WBC 13.43* HB 12.5* HCT 38.1* PLT 285 NA 141 K 3.8 CHLOR 105 CO2 26 BUN 29* CREAT 0.93 GLUC 90 CA 9.7 MG 2.1 ASSESSMENT AND PLAN: 68 yo M w/ hx of HTN and prior lumbar stenosis s/p laminectomies, most recently s/p L2-5 OLIF (08/19/23, Dr. Keith), who presents with worsening BLE edema and pain. XR lumbar spine shows intact hardware and normal alignment. CT L spine does not show any fractures or lucency around hardware. Patient has bilateral foot drop, which is stable since surgery, with interval development of BLE edema. Incisions are healing well with no evidence of infection or swelling. Etiology of BLE edema unclear, though unlikely related to recent surgery. - no indication for acute neurosurgical intervention at this time - recommend admission to medicine to work up BLE edema/pain - no further imaging from nsgy perspective Rest per primary. We will continue to follow along. Above plan discussed with chief and staff, Dr. Sauceda. Signature: Vijay Diego MD PGY-3, Neurosurgery [facility] On-call pager: [phone] Normal [facility] CRP SerPl-mCncon 09-07-2023 CRP [Mass/Vol] mg/L Normal <0.9 [facility] Comment on above: Order Comment: Speci men Type: BLOOD SPECIMEN Ordering Facility: [facility] Address: [address] [place] [address] Performed By: #### 2 4321-2 #### [facility] CLIA [id number] [address] [place], [place] [address] [place] [address] [place] LUMBAR SPINE WO IVCONon 0 09-07-2023 CT LUMBAR SPINE WO IVCON * * *Final Report* * * DATE OF EXAM: Sep 07 2023 10:36PM [facility] 0508 - CT LUMBAR SPINE WO IVCON / PROCEDURE REASON: Spinal stenosis, lumbar * * * * Physician Interpretation * * * * EXAMINATION: CT LUMBAR SPINE WO IVCON CLINICAL HISTORY: Spinal stenosis, lumbar TECHNIQUE: Spiral, high resolution axial unenhanced images were obtained from the thoracolumbar junction to the sacrum with sagittal and coronal planar reconstructions. MQ: [id number] CT Radiation dose: Integrated Dose-Length Product (DLP) for this visit = 1016 mGy*cm. CT Dose Reduction Employed: No dose reduction techniques were required COMPARISON: MRI L-spine 08/20/2023 RESULT: Counting reference: Lumbosacral junction. For the purposes of this report, L4-5 is considered the level of the iliac crest and there are 5 lumbar-type vertebrae. Anatomic variant: Transitional L5 vertebral body. Spring Assembler (topogram) images: No additional findings. Alignment: Mild curvature of the thoracic lumbar spine, concave to the LEFT. Mild curvature lumbar spine, concave to the RIGHT. Bone marrow /fracture: L3-L4 laminectomy with interbody spacers at L2-L3 through L4-L5 and L2-L5 posterior instrumented fusion with interpedicular screws and rods. No hardware failure or periprosthetic lucency. No evidence of a lytic or blastic process in the visualized spine. No evidence of acute or chronic fracture. Paraspinal soft tissues: Surgical clips present within the gallbladder fossa. Diverticulosis. Lower thoracic spine: The visualized lower thoracic bony canal and foramina are patent. Degenerative change: Multilevel degenerative changes with high-grade foraminal stenosis, for example at L3-L4 level where there is severe bilateral foraminal stenosis. Additional foraminal stenosis most severe at L4-L5 and L2-L3 on the LEFT. No clear high-grade canal stenosis. Sacrum and iliac wings: The visualized sacrum and iliac wings are within normal limits. IMPRESSION: Postoperative and degenerative changes as above. Anatomic Lumbar Variant: None. L4-5 is considered the level of the iliac crest and assume there are 5 lumbar-type vertebrae. 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: CITLALLI Transcribe Date/Time: Sep 07 2023 10:45P Dictated by : CHRIS BOYD, DO This examination was interpreted and the report reviewed and electronically signed by: CHERYL BROWN MD on Sep 07 2023 11:02PM EST [id number] N Normal [facility] Comprehensive metabolic 2000 panelon 09-07-2023 Albumin [Mass/Vol] 4.0 g/dL Normal 3.9-4.9 [facility] Comment on above: Order Comment: Speci men Type: BLOOD SPECIMEN Ordering Facility: [facility] Address: [address] [place] [address] Performed By: #### 2 4321-2 #### [facility] CLIA [id number] [address] [place] [address] [place] ALP [Catalytic activity/Vol] 136 U/L High 38-113 [facility] Comment on above: Order Comment: Speci men Type: BLOOD SPECIMEN Ordering Facility: [facility] Address: [address] [place] [address] Performed By: #### 2 4321-2 #### [facility] CLIA [id number] [address] [place] [address] [place] ALT [Catalytic activity/Vol] 20 U/L Normal 10-54 [facility] Comment on above: Order Comment: Speci men Type: BLOOD SPECIMEN Ordering Facility: [facility] Address: [address] [place] [address] Performed By: #### 2 4321-2 #### [facility] CLIA [id number] [address] [place] [address] [place] Anion gap [Moles/Vol] 10 mmol/L Normal 8-15 [facility] Comment on above: Order Comment: Speci men Type: BLOOD SPECIMEN Ordering Facility: [facility] Address: [address] [place] [address] Performed By: #### 2 4321-2 #### [facility] CLIA [id number] [address] [place] [address] [place] AST [Catalytic activity/Vol] 19 U/L Normal 14-40 [facility] Comment on above: Order Comment: Speci men Type: BLOOD SPECIMEN Ordering Facility: [facility] Address: [address] [place] [address] Performed By: #### 2 4321-2 #### [facility] CLIA [id number] [address] [place] [address] [place] Bilirubin [Mass/Vol] 0.6 mg/dL Normal 0.2-1.3 [facility] Comment on above: Order Comment: Speci men Type: BLOOD SPECIMEN Ordering Facility: [facility] Address: [address] [place] [address] Performed By: #### 2 4321-2 #### [facility] CLIA [id number] [address] [place] [address] [place] Calcium [Mass/Vol] 9.7 mg/dL Normal 8.5-10.2 [facility] Comment on above: Order Comment: Speci men Type: BLOOD SPECIMEN Ordering Facility: [facility] Address: [address] [place] [address] Performed By: #### 2 4321-2 #### [facility] CLIA [id number] [address] [place] [address] [place] Chloride [Moles/Vol] 105 mmol/L Normal 98-107 [facility] Comment on above: Order Comment: Speci men Type: BLOOD SPECIMEN Ordering Facility: [facility] Address: [address] [place] [address] Performed By: #### 2 4321-2 #### [facility] CLIA [id number] [address] [place] [address] [place] CO2 [Moles/Vol] 26 mmol/L Normal 22-30 [facility] Comment on above: Order Comment: Speci men Type: BLOOD SPECIMEN Ordering Facility: [facility] Address: [address] [place] [address] Performed By: #### 2 4321-2 #### [facility] CLIA [id number] [address] [place] [address] [place] Creatinine [Mass/Vol] 0.93 mg/dL Normal 0.73-1.22 [facility] Comment on above: Order Comment: Speci men Type: BLOOD SPECIMEN Ordering Facility: [facility] Address: [address] [place], [place] [address] Performed By: #### 2 4321-2 #### [facility] CLIA [id number] [address] [place] [address] [place] Creatinine and Glomerular filtration rate.predicted panel (S/P/Bld) 91 mL/min/1.73m??? Normal >=60 [facility] Comment on above: Order Comment: Roberto Carlos lion Type: BLOOD SPECIMEN Ordering Facility: [facility] Address: [address] [place] [address] Result Comment: Yesica mated Glomerular Filtration Rate [...] actual GFR. Performed By: #### 2 4321-2 #### [facility] CLIA [id number] [address] [place] [address] [place] Glucose [Mass/Vol] 90 mg/dL Normal 74-99 [facility] Comment on above: Order Comment: Roberto Carlos lion Type: BLOOD SPECIMEN Ordering Facility: [facility] Address: [address] [place] [address] Result Comment: The [place] Diabetes Association (ADA) provides guidance for cutoff [...] Standards of Medical Care in Diabetes 2016, [place] [employer]. Diabetes Care. 2016.39(Suppl 1). Performed By: #### 2 4321-2 #### [facility] CLIA [id number] [address] [place] [address] [place] Potassium [Moles/Vol] 3.8 mmol/L Normal 3.7-5.1 [facility] Comment on above: Order Comment: Speci men Type: BLOOD SPECIMEN Ordering Facility: [facility] Address: [address] [place] [address] Performed By: #### 2 4321-2 #### [facility] CLIA [id number] [address] [place] [address] [place] Protein [Mass/Vol] 6.0 g/dL Low 6.3-8.0 [facility] Comment on above: Order Comment: Speci men Type: BLOOD SPECIMEN Ordering Facility: [facility] Address: [address] [place] [address] Performed By: #### 2 4321-2 #### [facility] CLIA [id number] [address] [place] [address] [place] Sodium [Moles/Vol] 141 mmol/L Normal 136-144 [facility] Comment on above: Order Comment: Speci men Type: BLOOD SPECIMEN Ordering Facility: [facility] Address: [address] [place] [address] Performed By: #### 2 4321-2 #### [facility] CLIA [id number] [address] [place] [address] [place] Urea nitrogen [Mass/Vol] 29 mg/dL High 9-24 [facility] Comment on above: Order Comment: Speci men Type: BLOOD SPECIMEN Ordering Facility: [facility] Address: [address] [place] [address] Performed By: #### 2 4321-2 #### [facility] CLIA [id number] [address] [place] [address] [place] ESR Westergren method (Bld) [Velocity]on 09-07-2023 ESR (Bld) [Velocity] 5 mm/h Normal 0-15 [facility] Comment on above: Order Comment: Speci men Type: BLOOD SPECIMEN Ordering Facility: [facility] Address: [address] [place] [address] Performed By: #### 5 7021-8, 4537-7 #### [facility] CLIA [id number] [address] [place] [address] [place] Magnesium SerPl-mCncon 09-06 Magnesium [Mass/Vol] 2.1 mg/dL Normal 1.7-2.3 [facility] Comment on above: Order Comment: Speci men Type: BLOOD SPECIMEN Ordering Facility: [facility] Address: [address] [place] [address] Performed By: #### 2 4321-2 #### [facility] CLIA [id number] [address] [place] [address] [place] NT-proBNP SerPl-ncon 09-06 Natriuretic peptide.B prohormone N-Terminal [Mass/Vol] 153 pg/mL High <125 [facility] Comment on above: Order Comment: Speci men Type: BLOOD SPECIMEN Ordering Facility: [facility] Address: [address] [place] [address] Performed By: #### 2 4321-2 #### [facility] CLIA [id number] [address] [place] [address] [place] US DVT LOWER BILon 4 US DVT LOWER NAVNEET * * *Final Report* * * DATE OF EXAM: Sep 07 2023 11:43PM [facility] 1005 - US DVT LOWER NAVNEET / PROCEDURE REASON: Leg deep vein thrombosis (DVT) suspected * * * * Physician Interpretation * * * * EXAMINATION: RIGHT AND LEFT LOWER EXTREMITY DEEP VENOUS ULTRASOUND WITH DOPPLER IMAGING CLINICAL HISTORY: Leg pain or tenderness. TECHNIQUE: Grayscale with compression maneuvers, color Doppler and spectral Doppler imaging of the right and left proximal deep veins was performed. Grayscale with compression maneuvers of the right and left peroneal and posterior tibial veins was performed. The right and left great and small saphenous veins were evaluated at their insertion to the deep system. Images were obtained and stored in a permanent archive. MQ: [id number]_1 COMPARISON: None RESULT: RIGHT LOWER EXTREMITY PROXIMAL DEEP VEINS Distal External Iliac, Common Femoral and Proximal Profunda Veins: Compression: Normal Doppler: Normal, spontaneous respirophasic flow. Normal response to augmentation. Femoral vein: Compression: Normal Doppler: Normal, spontaneous respirophasic flow. Normal response to augmentation. Popliteal vein: Compression: Normal Doppler: Normal, spontaneous respirophasic flow. Normal response to augmentation. CALF DEEP VEINS Peroneal veins: Normal compression. Posterior tibial veins: Normal compression. Gastrocnemius and Soleal veins: Not imaged. SUPERFICIAL VEINS Great saphenous: Patent and compressible at insertion into common femoral vein; not otherwise assessed. Small Saphenous: Patent and compressible in the proximal calf, not otherwise assessed. LEFT LOWER EXTREMITY PROXIMAL DEEP VEINS Distal External Iliac, Common Femoral and Proximal Profunda Veins: Compression: Normal Doppler: Normal, spontaneous respirophasic flow. Normal response to augmentation. Femoral vein: Compression: Normal Doppler: Normal, spontaneous respirophasic flow. Normal response to augmentation. Popliteal vein: Compression: Normal Doppler: Normal, spontaneous respirophasic flow. Normal response to augmentation. CALF DEEP VEINS Peroneal veins: Normal compression. Posterior tibial veins: Normal compression. Gastrocnemius and Soleal veins: Not imaged. SUPERFICIAL VEINS Great saphenous: Patent and compressible at insertion into common femoral vein; not otherwise assessed. Small Saphenous: Patent and compressible in the proximal calf, not otherwise assessed. IMPRESSION: Negative study for proximal DVT in the left and right lower extremities. Negative study for calf DVT in the left and right lower extremities. Negative study for superficial thrombophlebitis in the imaged segments of the left and right lower extremities. 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: CITLALLI Transcribe Date/Time: Sep 07 2023 11:44P Dictated by : CHRIS BOYD DO This examination was interpreted and the report reviewed and electronically signed by: BRANDON CARRILLO MD on Sep 08 2023 12:06AM EST [id number] N Normal [facility] Urinalysis complete panel (U )on 09-07-2023 Bacteria LM.HPF (Urine sed) [#/Area] Negative Normal Negative [facility] Comment on above: Order Comment: Speci men Type: BLOOD SPECIMEN Ordering Facility: [facility] Address: [address] [place] [address] Performed By: #### 2 4321-2 #### [facility] CLIA [id number] [address] [place] [id number] [place] Bilirubin Ql (U) Negative Normal Negative [facility] Comment on above: Order Comment: Speci men Type: BLOOD SPECIMEN Ordering Facility: [facility] Address: [address] [place], [place] [address] Performed By: #### 2 4321-2 #### [facility] CLIA [id number] [address] [place] [address] [place] Clarity (Unsp spec) Clear Normal Clear [facility] Comment on above: Order Comment: Speci men Type: BLOOD SPECIMEN Ordering Facility: [facility] Address: [address] [place] [address] Performed By: #### 2 4321-2 #### [facility] CLIA [id number] [address] [place] [address] [place] Color (U) Yellow Normal Yellow [facility] Comment on above: Order Comment: Speci men Type: BLOOD SPECIMEN Ordering Facility: [facility] Address: [address] [place] [address] Performed By: #### 2 4321-2 #### [facility] CLIA [id number] [address] [place] [address] [place] Epithelial cells LM.HPF (Urine sed) [#/Area] None Seen Normal [facility] Comment on above: Order Comment: Speci men Type: BLOOD SPECIMEN Ordering Facility: [facility] Address: [address] [place] [address] Performed By: #### 2 4321-2 #### [facility] CLIA [id number] [address] [place] [address] [place] Glucose Test strip (U) [Mass/Vol] Negative Normal Negative [facility] Comment on above: Order Comment: Speci men Type: BLOOD SPECIMEN Ordering Facility: [facility] Address: [address] [place] [address] Performed By: #### 2 4321-2 #### [facility] CLIA [id number] [address] [place] [address] [place] Hemoglobin Ql (U) Negative Normal Negative [facility] Comment on above: Order Comment: Speci men Type: BLOOD SPECIMEN Ordering Facility: [facility] Address: [address] [place] [address] Performed By: #### 2 4321-2 #### [facility] CLIA [id number] [address] [place] [address] [place] Hyaline casts (Urine sed) [#/Area] 0 /[LPF] Normal 0 /LPF [facility] Comment on above: Order Comment: Speci men Type: BLOOD SPECIMEN Ordering Facility: [facility] Address: [address] [place] [address] Performed By: #### 2 4321-2 #### [facility] CLIA [id number] [address] [place] [address] [place] Ketones Ql (U) Negative Normal Negative [facility] Comment on above: Order Comment: Speci men Type: BLOOD SPECIMEN Ordering Facility: [facility] Address: [address] [place] [address] Performed By: #### 2 4321-2 #### [facility] CLIA [id number] [address] [place] [address] [place] Leukocyte esterase Test strip Ql (U) Negative Normal Negative [facility] Comment on above: Order Comment: Speci men Type: BLOOD SPECIMEN Ordering Facility: [facility] Address: [address] [place], [place] [address] Performed By: #### 2 4321-2 #### [facility] CLIA [id number] [address] [place] [address] [place] Nitrite Ql (U) Negative Normal Negative [facility] Comment on above: Order Comment: Speci men Type: BLOOD SPECIMEN Ordering Facility: [facility] Address: [address] [place] [address] Performed By: #### 2 4321-2 #### [facility] CLIA [id number] [address] [place] [address] [place] pH (U) 7.0 [pH] Normal <8.5 [facility] Comment on above: Order Comment: Speci men Type: BLOOD SPECIMEN Ordering Facility: [facility] Address: [address] [place] [address] Performed By: #### 2 4321-2 #### [facility] CLIA [id number] [address] [place] [address] [place] Protein (U) [Mass/Vol] Negative Normal Negative [facility] Comment on above: Order Comment: Speci men Type: BLOOD SPECIMEN Ordering Facility: [facility] Address: [address] [place] [address] Performed By: #### 2 4321-2 #### [facility] CLIA [id number] [address] [place] [address] [place] RBC LM.HPF (Urine sed) [#/Area] 0-2 /HPF Normal 0-2 /HPF [facility] Comment on above: Order Comment: Speci men Type: BLOOD SPECIMEN Ordering Facility: [facility] Address: [address] [place] [address] Performed By: #### 2 4321-2 #### [facility] CLIA [id number] [address] [place] [address] [place] Specific gravity (U) [Rel density] 1.007 Normal 1.005-1.030 [facility] Comment on above: Order Comment: Speci men Type: BLOOD SPECIMEN Ordering Facility: [facility] Address: [address] [place] [address] Performed By: #### 2 4321-2 #### [facility] CLIA [id number] [address] [place] [address] [place] Urobilinogen Ql (U) 0.2 EU/dL Normal 0.2-1.0 EU/dL Cl [facility] Comment on above: Order Comment: Speci men Type: BLOOD SPECIMEN Ordering Facility: [facility] Address: [address] [place] [address] Performed By: #### 2 4321-2 #### [facility] CLIA [id number] [address] [place] [address] [place] WBC LM.HPF (Urine sed) [#/Area] 0-5 /HPF Normal 0-5 /HPF [facility] Comment on above: Order Comment: Speci men Type: BLOOD SPECIMEN Ordering Facility: [facility] Address: [address] [place] [address] Performed By: #### 2 4321-2 #### [facility] CLIA [id number] [address] [place] [address] [place] XR LUMBAR 3V AP/LAT/L5-S1on 09-07-2023 XR LUMBAR 3V AP/LAT/L5-S1 * * *Final Report* * * DATE OF EXAM: Sep 07 2023 9:25PM [facility] 5228 - XR LUMBAR 3V AP/LAT/L5-S1 / PROCEDURE REASON: Back pain * * * * Physician Interpretation * * * * EXAMINATION: XR LUMBAR 3V AP/LAT/L5-S1 HISTORY: Back pain COMPARISON: 08.21.23 FINDINGS: Bone: No fracture or dislocation . Soft tissue: Moderate fecal accumulation Other: L3-S1 posterior fusion hardware identified with intervertebral disc spacers. Moderate osteoarthritis elsewhere. Right upper quadrant cholecystectomy clips. IMPRESSION: Degenerative changes. Intact orthopedic hardware. 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: PSCB Transcribe Date/Time: Sep 07 2023 9:29P Dictated by : BRANDON CARRILLO MD This examination was interpreted and the report reviewed and electronically signed by: BRANDON CARRILLO MD on Sep 07 2023 9:31PM EST [id number] N Normal [facility] CNPNon 09-04-2023 CNPN Telephone (NI) BRADEN RODRIGUEZ ([id number]) 1955 M Date Time Provider Department 09/04/23 KATHERINE KEITH During your visit today, we recorded the following information about you: Winnie Quesada 09/04/2023 12:57 PM Addendum Pt has an order that is from [facility]. For Home Health Care. Marianne from [facility] called and said pt was refusing Home Health. I did as her to call the ordering PA, she wanted it noted in his chart here, as well Allergies As of Date: 09/04/2023 Noted Allergy Reaction PENICILLINS 07/04/2006 2 - Rash Date Reviewed: 08/22/2023 Reviewed by: Angelito Lees, RN - Fully Assessed Reason for Visit: Patient Update [1234] Prescriptions as of 09/05/2023 - oxyCODONE IR (ROXICODONE) 5 mg immediate release tablet Take 1 tablet by mouth every 6 hours as needed for pain for up to 7 days. Do not start before September 04, 2023. - acetaminophen (TYLENOL) 325 mg tablet 2 tablets by ORAL/FEEDING TUBE route every 4 hours. - methocarbamol (ROBAXIN) 750 mg tablet Take 1 tablet by mouth every 6 hours. - senna-docusate (SENNA-S) 8.6-50 mg per tablet Take 2 tablets by mouth two times a day. - carvedilol (COREG) 12.5 mg tablet Take 12.5 mg by mouth two times a day with meals. Problem List As Of Date 09/04/2023 Noted Resolved BENIGN NEOPLASM SKIN NEC-exam [D23.9] 08/05/2008 UNCERTAIN BEHAV NEOPL SKIN [D48.5] 08/05/2008 BENIGN NEOPLASM SKIN NOS [D23.9] 09/08/2008 SEBORRHEIC KERATOSIS NOS [L82.1] 09/08/2008 Primary hypertension [I10] 08/06/2023 History of penicillin allergy [Z88.0] 08/06/2023 SVT (supraventricular tachycardia) (HCC) [I47.1*08/06/2023 S/P lumbar fusion [Z98.1] 08/19/2023 Acute post-operative pain [G89.18] 08/20/2023 Scoliosis of lumbar region due to degenerative *08/20/2023 Foot drop, right foot [M21.371] 08/20/2023 Encounter Status:Closed by TARA RODRIGUEZ on 09/05/23 Normal [facility] CNPNon 08-29-2023 CNPN Telephone (NIQ) BRADEN RODRIGUEZ ([id number]) 1955 M Date Time Provider Department 08/29/23 KATHERINE KEITH During your visit today, we recorded the following information about you: Winnie Quesada 08/29/2023 9:33 AM Signed Call received for Katherine Keith MD regarding Braden Rodriguez. Caller: Sandeep, Pharmacist [facility] Patient Identified by Name and : Yes Reason for Call: General Question Pharmacist called about refill request for Oxycodone, He had just filled one 4 days ago and the a prescription for Narco. Concerned, about the amount of narcotics. Please advise. Is there any additional information the provider should know? No Last Office Visit: 08/01/2023 Next scheduled appointment: 10/08/2023 Best number to reach caller: [phone] Best time to reach caller: any Is it OK to leave a detailed voice message? Yes Wellington Zendejas, RN 08/29/2023 10:32 AM Signed Returned call to pharmacy. Kori Loyd did speak to patient regarding stopping the [place] and taking Oxy. Also getting his pain medication through us during this post op time period. He voiced appreciation. No further questions. Allergies As of Date: 08/29/2023 Noted Allergy Reaction PENICILLINS 07/04/2006 2 - Rash Date Reviewed: 08/22/2023 Reviewed by: Angelito Lees RN - Fully Assessed Reason for Visit: Medication Problem [65] Prescriptions as of 08/29/2023 - oxyCODONE IR (ROXICODONE) 5 mg immediate release tablet Take 1 tablet by mouth every 4 hours for 7 days. - acetaminophen (TYLENOL) 325 mg tablet 2 tablets by ORAL/FEEDING TUBE route every 4 hours. - methocarbamol (ROBAXIN) 750 mg tablet Take 1 tablet by mouth every 6 hours. - senna-docusate (SENNA-S) 8.6-50 mg per tablet Take 2 tablets by mouth two times a day. - carvedilol (COREG) 12.5 mg tablet Take 12.5 mg by mouth two times a day with meals. Problem List As Of Date 08/29/2023 Noted Resolved BENIGN NEOPLASM SKIN NEC-exam [D23.9] 08/05/2008 UNCERTAIN BEHAV NEOPL SKIN [D48.5] 08/05/2008 BENIGN NEOPLASM SKIN NOS [D23.9] 09/08/2008 SEBORRHEIC KERATOSIS NOS [L82.1] 09/08/2008 Primary hypertension [I10] 08/06/2023 History of penicillin allergy [Z88.0] 08/06/2023 SVT (supraventricular tachycardia) (HCC) [I47.1*08/06/2023 S/P lumbar fusion [Z98.1] 08/19/2023 Acute post-operative pain [G89.18] 08/20/2023 Scoliosis of lumbar region due to degenerative *08/20/2023 Foot drop, right foot [M21.371] 08/20/2023 Encounter Status:Closed by WELLINGTON CASTANEDA on 08/29/23 Normal [facility] CNCOon 08-25-2023 CNCO Letter Text Normal [facility] Basic metabolic 2000 panelon 08-22-2023 Anion gap [Moles/Vol] 9 mmol/L Normal 8-15 [facility] Comment on above: Order Comment: Speci men Type: BLOOD SPECIMENOrdering Facility: [facility] Address: [address] [place] [address] Performed By: #### 2 4321-2 ####[facility] [id number] [address] [address] [place] Calcium [Mass/Vol] 9.4 mg/dL Normal 8.5-10.2 [facility] Comment on above: Order Comment: Speci men Type: BLOOD SPECIMENOrdering Facility: [facility] Address: [address] [place], [place] [address] Performed By: #### 2 4321-2 ####[facility] [id number] [place] [address] [place] Chloride [Moles/Vol] 103 mmol/L Normal 98-107 [facility] Comment on above: Order Comment: Speci men Type: BLOOD SPECIMENOrdering Facility: [facility] Address: [address] [place] [address] Performed By: #### 2 4321-2 ####[facility] [id number] [place] [address] [place] CO2 [Moles/Vol] 26 mmol/L Normal 22-30 [facility] Comment on above: Order Comment: Speci men Type: BLOOD SPECIMENOrdering Facility: [facility] Address: [address] [place], [place] [address] Performed By: #### 2 4321-2 ####[facility] [id number] [place] [address] [place] Creatinine [Mass/Vol] 0.77 mg/dL Normal 0.73-1.22 [facility] Comment on above: Order Comment: Speci men Type: BLOOD SPECIMENOrdering Facility: [facility] Address: [address] [place], [place] [address] Performed By: #### 2 4321-2 ####[facility] [id number] [place] [address] [place] Creatinine and Glomerular filtration rate.predicted panel (S/P/Bld) 99 mL/min/1.73m??? Normal >=60 [facility] Comment on above: Order Comment: Roberto Carlos lion Type: BLOOD SPECIMENOrdering Facility: [facility] Address: [address] [place] [address] Result Comment: Yesica mated Glomerular Filtration Rate [...] actual GFR. Performed By: #### 2 4321-2 ####[facility] [id number] [place] [address] [place] Glucose [Mass/Vol] 112 mg/dL High 74-99 [facility] Comment on above: Order Comment: Roberto Carlos lion Type: BLOOD SPECIMENOrdering Facility: [facility] Address: [address] [place] [address] Result Comment: The [place] Diabetes Association (ADA) provides guidance for cutoff [...] Standards of Medical Care in Diabetes 2016, [employer]. Diabetes Care. 2016.39(Suppl 1). Performed By: #### 2 4321-2 ####[facility] [id number] [place] [address] [place] Potassium [Moles/Vol] 5.1 mmol/L Normal 3.7-5.1 [facility] Comment on above: Order Comment: Speci men Type: BLOOD SPECIMENOrdering Facility: [facility] Address: [address] [place] [address] Performed By: #### 2 4321-2 ####[facility] [id number] [place] [address] [place] Sodium [Moles/Vol] 138 mmol/L Normal 136-144 [facility] Comment on above: Order Comment: Speci men Type: BLOOD SPECIMENOrdering Facility: [facility] Address: [address] [place] [address] Performed By: #### 2 4321-2 ####[facility] [id number] [place] [address] [place] Urea nitrogen [Mass/Vol] 16 mg/dL Normal 9-24 [facility] Comment on above: Order Comment: Speci men Type: BLOOD SPECIMENOrdering Facility: [facility] Address: [address] [place] [address] Performed By: #### 2 4321-2 ####[facility] [id number] [place] [address] [place] CBC panel Auto (Bld)on 08-21 Erythrocyte distribution width (RBC) [Ratio] 13.2 % Normal 11.5-15.0 [facility] Comment on above: Order Comment: Speci men Type: BLOOD SPECIMEN [facility] Address: [address] [place] [address] Performed By: #### 2 4321-2 #### [facility] CLIA [id number] [address] [place] [address] [place] Hematocrit (Bld) [Volume fraction] 34.6 % Low 39.0-51.0 [facility] Comment on above: Order Comment: Speci men Type: BLOOD SPECIMEN [facility] Address: [address] [place] [address] Performed By: #### 2 4321-2 #### [facility] CLIA [id number] [address] [place] [address] [place] Hemoglobin (Bld) [Mass/Vol] 11.6 g/dL Low 13.0-17.0 [facility] Comment on above: Order Comment: Speci men Type: BLOOD SPECIMEN [facility] Address: [address] [place] [address] Performed By: #### 2 4321-2 #### [facility] CLIA [id number] [address] [place] [address] [place] MCH (RBC) [Entitic mass] 31.9 pg Normal 26.0-34.0 [facility] Comment on above: Order Comment: Speci men Type: BLOOD SPECIMEN [facility] Address: [address] [place] [address] Performed By: #### 2 4321-2 #### [facility] CLIA [id number] [address] [place] [address] [place] MCHC (RBC) [Mass/Vol] 33.5 g/dL Normal 30.5-36.0 [facility] Comment on above: Order Comment: Speci men Type: BLOOD SPECIMEN [facility] Address: [address] [place] [address] Performed By: #### 2 4321-2 #### [facility] CLIA [id number] [address] [place] [address] [place] MCV (RBC) [Entitic vol] 95.1 fL Normal 80.0-100.0 [facility] Comment on above: Order Comment: Speci men Type: BLOOD SPECIMEN [facility] Address: [address] [place] [address] Performed By: #### 2 4321-2 #### [facility] CLIA [id number] [address] [place] [address] [place] Nucleated RBC (Bld) [#/Vol] 10*3/uL Normal <0.01 [facility] Comment on above: Order Comment: Speci men Type: BLOOD SPECIMEN [facility] Address: [address] [place] [address] Performed By: #### 2 4321-2 #### [facility] CLIA [id number] [address] [place] [address] [place] Platelet mean volume (Bld) [Entitic vol] 9.7 fL Normal 9.0-12.7 [facility] Comment on above: Order Comment: Speci men Type: BLOOD SPECIMEN [facility] Address: [address] [place] [address] Performed By: #### 2 4321-2 #### [facility] CLIA [id number] [address] [place] [address] [place] Platelets (Bld) [#/Vol] 393 10*3/uL Normal 150-400 [facility] Comment on above: Order Comment: Speci men Type: BLOOD SPECIMEN [facility] Address: [address] [place] [address] Performed By: #### 2 4321-2 #### [facility] CLIA [id number] [address] [place] [address] [place] RBC (Bld) [#/Vol] 3.64 10*6/uL Low 4.20-6.00 [facility] Comment on above: Order Comment: Speci men Type: BLOOD SPECIMEN [facility] Address: [address] [place] [address] Performed By: #### 2 4321-2 #### [facility] CLIA [id number] [address] [place] [address] [place] WBC (Bld) [#/Vol] 17.35 10*3/uL High 3.70-11.00 [facility] Comment on above: Order Comment: Speci men Type: BLOOD SPECIMEN [facility] Address: [address] [place] [address] Performed By: #### 2 4321-2 #### [facility] CLIA [id number] [address] [place] [id number] OF [facility] CNDSon 08-22-2023 CNDS HNO ID: [id number] Author: CHILANGO COTTO PA-C Service: Neurosurgery Author Type: Physician Mold Washer Type: Discharge Summary Filed: 08/22/2023 10:39 Note Text: Attestation signed by Katherine Keith MD at 09/08/2023 11:23 AM Katherine Keith MD DISCHARGE SUMMARY NEUROLOGICAL [facility] PATIENT NAME: Braden Rodriguez ADMISSION DATE: 08/19/2023 DISCHARGE DATE: 08/22/2023 Attending Physician: Katherine Keith MD PCP: Ester Cain MD [phone] Code Status: Not on file Discharged Against Medical Advice? No Highest Readmission Risk Score: 12 The 30 day readmissions risk score is derived from an internally validated risk model which evaluates patient level characteristics, utilization history, medication orders and lab results up until the day of discharge. Patients with a score of 40 or above are considered highest risk for readmission. Specific patient level drivers will be listed at the bottom of the summary. The 30 day readmissions risk score is derived from an internally validated risk model which evaluates patient level characteristics, utilization history, medication orders and lab results up until the day of discharge. Patients with a score of 40 or above are considered highest risk for readmission. Specific patient level drivers will be listed at the bottom of the summary HPI: Operations During Hospitalization: 08/19/2023: L2-L5 OLIF with posterior percutaneous pedicle screw instrumentation Operative Duration: 8 Hr 12 Min 46 Sec Implants Used for Surgery: Implant Name Type Inv. Item Serial No. Clean Rice Broker Lot No. LRB No. Used Action GRAFT INFUSE 20GA MEDIUM BOVINE COLLAGEN RHBMP-2 2X1IN BONE VIAL ABSORBABLE - [id number] Bone GRAFT INFUSE 20GA MEDIUM BOVINE COLLAGEN RHBMP-2 2X1IN BONE VIAL ABSORBABLE [employer]ONIC [id number] N/A 1 Implanted SIGNIFY GEL INSTAFILL CARTRIDGE 5CC [id number] Bone [employer] [id number] N/A 1 Implanted SIGNIFY GEL INSTAFILL CARTRIDGE 5CC [id number] Accessories [employer] [id number] N/A 1 Implanted CREO MIS LOCKING CAP Accessories [employer] N/A 8 Implanted CREO MIS 5.5MM CURVED CRYSTAL TI ALLOY 10CM Crystal [employer] N/A 1 Implanted SPACER RISE-L 3D LORDOTIC [id number] SPINAL NONSTERILE [employer] N/A 1 Implanted CREO MIS 5.5MM CURVED CRYSTAL TI ALLOY 11CM Crystal [employer] N/A 1 Implanted SPACER RISE-L 3D LORDOTIC [id number] SPINAL NONSTERILE [employer] N/A 2 Implanted 4.5X45 Screw [employer] N/A 1 Implanted 5.0X45 Screw [employer] N/A 1 Implanted CREO ONE ROBOTIC MODULAR SCREW 6.5MM X 50MM Screw [employer] N/A 2 Implanted CREO ONE ROBOTIC MODULAR SCREW 6.5MM X 55MM Screw [employer] N/A 4 Implanted Surgical Specimens: * No specimens in log * Incision/Procedure Start Time: 12:23 PM Incision Close/Procedure End Time: 6:39 PM Surgeon(s) and Role: * Katherine Keith MD - Primary * Schuyler Goff MD - Resident - Assisting * Hui Whyte MD - Fellow Sign Manufacturer: Lindsay Lew RN Sign Manufacturer (Relief): Connie Mendosa RN; April Blackmon RN Scrub Person: Radha Chaudhary ST Scrub Person (Relief): Connie Mendosa RN; Jodi Moore ST Procedures During Hospitalization: No procedures performed Hospital Course: 68 y/o M with degenerative scoliosis who presents for elective spine surgery. The patient was electively admitted to the [facility]. After being optimized for surgery by the PACE teams, Braden Rodriguez was identified and brought into the Operating Room by the anesthesia and nursing teams. Prior to surgery the patient was treated with antibiotics and continued with antibiotics postoperatively. The patient underwent a L2-L5 OLIF with posterior percutaneous pedicle screw instrumentation done under General. The patient tolerated the procedure and was taken to PACU, and then to the hospital surgical floor when PACU criteria was made. The patient was then transferred up to [place] [address] [address] hospital room for postoperative management. Patient was fitted with fitted with sequential compression devices and used Heparin for DVT prophylaxis. POD1: New R foot drop after surgery. CT scan demonstrated appropriate position of instrumentation. Started on dexamethasone for suspected stretch injury to nerve POD2: MRI L spine negative for hematoma. Steroids continued. POD3: Patient had BM. On date of discharge pain well controlled on oral medications. Patient mobilizing independently. Patient voiding and passing flatus. Patient was discharged to home in stable condition. Active Hospital Problems as of 08/22/2023 Noted - Resolved POA Hospital Primary hypertension 08/06/2023 - Present Yes Current Assessment AND Plan Assessment: POA PLAN: -Resume coreg (more content not included)... Normal [facility] THERAPY NTon 08-22-2023 THERAPY NT HNO ID: [id number] Author: DONN ARDON PT Service: Physical Therapy Author Type: Physical Therapist Type: Therapy (PT/OT/Speech/Resp) Filed: 08/22/2023 12:08 Note Text: PHYSICAL THERAPY MISSED VISIT SERVICE DATE: 08/22/2023 SERVICE TIME: 1000 ROOM: [place] [address] Patient not seen due to Refused Treatment. Discussed functional mobility with pt, answered all questions within scope. Pt reports no concerns regarding d/c to home, declined ambulation with PT at this time. SIGNATURE: Donn Ardon PT PATIENT NAME: Braden Rodriguez DATE: August 22, 2023 TIME: 12:08 PM Normal [facility] Basic metabolic 2000 panelon 08-21-2023 Anion gap [Moles/Vol] 10 mmol/L Normal 8-15 [facility] Comment on above: Order Comment: Speci men Type: BLOOD SPECIMEN [facility] Address: [address] [place] [address] Performed By: #### 2 4321-2 #### [facility] CLIA [id number] [address] [place] [address] [place] Calcium [Mass/Vol] 9.5 mg/dL Normal 8.5-10.2 [facility] Comment on above: Order Comment: Speci men Type: BLOOD SPECIMEN [facility] Address: [address] [place] [address] Performed By: #### 2 4321-2 #### [facility] CLIA [id number] [address] [place] [address] [place] Chloride [Moles/Vol] 106 mmol/L Normal 98-107 [facility] Comment on above: Order Comment: Speci men Type: BLOOD SPECIMEN [facility] Address: [address] [place] [address] Performed By: #### 2 4321-2 #### [facility] CLIA [id number] [address] [place] [address] [place] CO2 [Moles/Vol] 22 mmol/L Normal 22-30 [facility] Comment on above: Order Comment: Speci men Type: BLOOD SPECIMEN [facility] Address: [address] [place] [address] Performed By: #### 2 4321-2 #### [facility] CLIA [id number] [address] [place] [address] [place] Creatinine [Mass/Vol] 0.84 mg/dL Normal 0.73-1.22 [facility] Comment on above: Order Comment: Speci men Type: BLOOD SPECIMEN [facility] Address: [address] [place] [address] Performed By: #### 2 4321-2 #### [facility] CLIA [id number] [address] [place] [address] [place] Creatinine and Glomerular filtration rate.predicted panel (S/P/Bld) 96 mL/min/1.73m??? Normal >=60 [facility] Comment on above: Order Comment: Roberto Carlos lion Type: BLOOD SPECIMEN [facility] Address: [address] [place] [address] Result Comment: Yesica mated Glomerular Filtration Rate [...] actual GFR. Performed By: #### 2 4321-2 #### [facility] CLIA [id number] [address] [place] [address] [place] Glucose [Mass/Vol] 140 mg/dL High 74-99 [facility] Comment on above: Order Comment: Roberto Carlos lion Type: BLOOD SPECIMEN [facility] Address: [address] [place] [address] Result Comment: The [place] Diabetes Association (ADA) provides guidance for cutoff [...] Standards of Medical Care in Diabetes 2016, [place] Diabetes Association. Diabetes Care. 2016.39(Suppl 1). Performed By: #### 2 4321-2 #### [facility] CLIA [id number] [address] [place] [address] [place] Potassium [Moles/Vol] 4.4 mmol/L Normal 3.7-5.1 [facility] Comment on above: Order Comment: Speci men Type: BLOOD SPECIMEN [facility] Address: [address] [place] [address] Performed By: #### 2 4321-2 #### [facility] CLIA [id number] [address] [place] [address] [place] Sodium [Moles/Vol] 138 mmol/L Normal 136-144 [facility] Comment on above: Order Comment: Speci men Type: BLOOD SPECIMEN [facility] Address: [address] [place] [address] Performed By: #### 2 4321-2 #### [facility] CLIA [id number] [address] [place] [address] [place] Urea nitrogen [Mass/Vol] 14 mg/dL Normal 9-24 [facility] Comment on above: Order Comment: Speci men Type: BLOOD SPECIMEN [facility] Address: [address] [place] [address] Performed By: #### 2 4321-2 #### [facility] CLIA [id number] [address] [place] [address] [place] CASE MANAGEMon 08-21-2023 CASE MANAGEM HNO ID: [id number] Author: ANGELITO ZENDEJAS RN Service: ? 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 Team aware via [employer] chat. Per spouse Marycarmen [phone] discharge transportation will be provided by a family member. CM to continue to follow. SIGNATURE: Angelito Zendejas RN PATIENT NAME: Braden Rodriguez DATE: August 21, 2023 TIME: 2:52 PM PAGER/CONTACT #: [phone] Normal [facility] CBC panel Auto (Bld)on 08-20 Erythrocyte distribution width (RBC) [Ratio] 13.1 % Normal 11.5-15.0 [facility] Comment on above: Order Comment: Speci men Type: BLOOD SPECIMEN [facility] Address: [address] [place] [address] Performed By: #### 2 4321-2 #### [facility] CLIA [id number] [address] [place] [address] [place] Hematocrit (Bld) [Volume fraction] 34.2 % Low 39.0-51.0 [facility] Comment on above: Order Comment: Speci men Type: BLOOD SPECIMEN [facility] Address: [address] [place] [address] Performed By: #### 2 4321-2 #### [facility] CLIA [id number] [address] [place] [address] [place] Hemoglobin (Bld) [Mass/Vol] 11.6 g/dL Low 13.0-17.0 [facility] Comment on above: Order Comment: Speci men Type: BLOOD SPECIMEN [facility] Address: [address] [place] [address] Performed By: #### 2 4321-2 #### [facility] CLIA [id number] [address] [place] [address] [place] MCH (RBC) [Entitic mass] 31.7 pg Normal 26.0-34.0 [facility] Comment on above: Order Comment: Speci men Type: BLOOD SPECIMEN [facility] Address: [address] [place] [address] Performed By: #### 2 4321-2 #### [facility] CLIA [id number] [address] [place] [address] [place] MCHC (RBC) [Mass/Vol] 33.9 g/dL Normal 30.5-36.0 [facility] Comment on above: Order Comment: Speci men Type: BLOOD SPECIMEN [facility] Address: [address] [place] [address] Performed By: #### 2 4321-2 #### [facility] CLIA [id number] [address] [place] [address] [place] MCV (RBC) [Entitic vol] 93.4 fL Normal 80.0-100.0 [facility] Comment on above: Order Comment: Speci men Type: BLOOD SPECIMEN [facility] Address: [address] [place] [address] Performed By: #### 2 4321-2 #### [facility] CLIA [id number] [address] [place] [address] [place] Nucleated RBC (Bld) [#/Vol] 10*3/uL Normal <0.01 [facility] Comment on above: Order Comment: Speci men Type: BLOOD SPECIMEN [facility] Address: [address] [place] [address] Performed By: #### 2 4321-2 #### [facility] CLIA [id number] [address] [place] [address] [place] Platelet mean volume (Bld) [Entitic vol] 9.3 fL Normal 9.0-12.7 [facility] Comment on above: Order Comment: Speci men Type: BLOOD SPECIMEN [facility] Address: [address] [place] [address] Performed By: #### 2 4321-2 #### [facility] CLIA [id number] [address] [place] [address] [place] Platelets (Bld) [#/Vol] 324 10*3/uL Normal 150-400 [facility] Comment on above: Order Comment: Speci men Type: BLOOD SPECIMEN [facility] Address: [address] [place] [address] Performed By: #### 2 4321-2 #### [facility] CLIA [id number] [address] [place] [address] [place] RBC (Bld) [#/Vol] 3.66 10*6/uL Low 4.20-6.00 [facility] Comment on above: Order Comment: Speci men Type: BLOOD SPECIMEN [facility] Address: [address] [place] [address] Performed By: #### 2 4321-2 #### [facility] CLIA [id number] [address] [place] [address] [place] WBC (Bld) [#/Vol] 13.46 10*3/uL High 3.70-11.00 [facility] Comment on above: Order Comment: Speci men Type: BLOOD SPECIMEN [facility] Address: [address] [place] [address] Performed By: #### 2 4321-2 #### [facility] CLIA [id number] [address] [place] [address] [place] THERAPY NTon 08-21-2023 THERAPY NT HNO ID: [id number] Author: DONN ARDON, PT Service: Physical Therapy Author Type: Physical Therapist Type: Therapy (PT/OT/Speech/Resp) Filed: 08/21/2023 15:29 Note Text: Physical Therapy Treatment Summary SERVICE DATE: 08/21/2023 SERVICE TIME: 1429 to 1453 ROOM: [place] [address] PT 6 Clicks Score: 19 DISCHARGE RECOMMENDATIONS [...] gait and mobility-other TREATMENT INTERVENTIONS Therapeutic Activity (44229), Gait Training (30284) Timed Code Treatment (minutes): 24 Skilled Treatment [...] August 21, 2023 TIME: 3:29 PM Normal [facility] THERAPY NT HNO ID: [id number] Author: RUBÉN ORTEGA OT/L Service: Occupational Therapy Author Type: Occupational Therapist Type: Therapy (PT/OT/Speech/Resp) Filed: 08/21/2023 15:05 Note Text: OCCUPATIONAL THERAPY MISSED VISIT SERVICE DATE: 08/21/2023 SERVICE TIME: 1502 ROOM: [place] [address] Patient not seen due to (No OT needs). Per conversation with pt and family and staff, no OT needs SIGNATURE: RUBÉN ORTEGA OT/L PATIENT NAME: Braden Rodriguez DATE: August 21, 2023 TIME: 3:04 PM [facility] THERAPY NT HNO ID: [id number] Author: DONN ARDON, PT Service: Physical Therapy Author Type: Physical Therapist Type: Therapy (PT/OT/Speech/Resp) Filed: 08/21/2023 11:35 Note Text: PHYSICAL THERAPY MISSED VISIT SERVICE DATE: 08/21/2023 SERVICE TIME: 1127 ROOM: [place] [address] ( HB-X-RAY 215) Patient not seen due to Patient Not Available. Transport arrived for x-ray. PT will follow up as able. SIGNATURE: Donn Ardon PT PATIENT NAME: Braden Rodriguez DATE: August 21, 2023 TIME: 11:35 AM Normal [facility] XR LUMBAR 2V AP/LATon 2023 XR LUMBAR [...] recent postsurgical changes of the lumbar spine. 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: PSCB Transcribe Date/Time: Aug 21 2023 11:38A Dictated by : MANA TSAI MD This examination was interpreted and the report reviewed and electronically signed by: MANA TSAI MD on Aug 21 2023 11:39AM EST [id number] Normal [facility] Basic metabolic 2000 panelon 08-20-2023 Anion gap [Moles/Vol] 11 mmol/L Normal 8-15 [facility] Comment on above: Order Comment: Speci men Type: BLOOD SPECIMEN Ordering Facility: [facility] Address: [address] [place] [address] Performed By: #### 2 4321-2 #### [facility] CLIA [id number] [address] [place] [address] [place] Calcium [Mass/Vol] 9.3 mg/dL Normal 8.5-10.2 [facility] Comment on above: Order Comment: Speci men Type: BLOOD SPECIMEN Ordering Facility: [facility] Address: [address] [place] [address] Performed By: #### 2 4321-2 #### [facility] CLIA [id number] [address] [place] [address] [place] Chloride [Moles/Vol] 105 mmol/L Normal 98-107 [facility] Comment on above: Order Comment: Speci men Type: BLOOD SPECIMEN Ordering Facility: [facility] Address: [address] [place] [address] Performed By: #### 2 4321-2 #### [facility] CLIA [id number] [address] [place] [address] [place] CO2 [Moles/Vol] 24 mmol/L Normal 22-30 [facility] Comment on above: Order Comment: Speci men Type: BLOOD SPECIMEN Ordering Facility: [facility] Address: [address] [place] [address] Performed By: #### 2 4321-2 #### [facility] CLIA [id number] [address] [place] [address] [place] Creatinine [Mass/Vol] 0.86 mg/dL Normal 0.73-1.22 [facility] Comment on above: Order Comment: Speci men Type: BLOOD SPECIMEN Ordering Facility: [facility] Address: [address] [place] [address] Performed By: #### 2 4321-2 #### [facility] CLIA [id number] [address] [place] [address] [place] Creatinine and Glomerular filtration rate.predicted panel (S/P/Bld) 95 mL/min/1.73m??? Normal >=60 [facility] Comment on above: Order Comment: Speci men Type: BLOOD SPECIMEN Ordering Facility: [facility] Address: [address] [place] [address] Result Comment: Yesica mated Glomerular Filtration Rate [...] actual GFR. Performed By: #### 2 4321-2 #### [facility] CLIA [id number] [address] [place] [address] [place] Glucose [Mass/Vol] 111 mg/dL High 74-99 [facility] Comment on above: Order Comment: Roberto Carlos lion Type: BLOOD SPECIMEN Ordering Facility: [facility] Address: [address] [place] [address] Result Comment: The [place] Diabetes Association (ADA) provides guidance for cutoff [...] Standards of Medical Care in Diabetes 2016, [place] Diabetes Association. Diabetes Care. 2016.39(Suppl 1). Performed By: #### 2 4321-2 #### [facility] CLIA [id number] [address] [place] [address] [place] Potassium [Moles/Vol] 4.0 mmol/L Normal 3.7-5.1 [facility] Comment on above: Order Comment: Roberto Carlos lion Type: BLOOD SPECIMEN Ordering Facility: [facility] Address: [address] [place] [address] Performed By: #### 2 4321-2 #### [facility] CLIA [id number] [address] [place] [address] [place] Sodium [Moles/Vol] 140 mmol/L Normal 136-144 [facility] [place] Comment on above: Order Comment: Roberto Carlos men Type: BLOOD SPECIMEN Ordering Facility: [facility] Address: [address] [place] [address] Performed By: #### 2 4321-2 #### [facility] CLIA [id number] [address] [place] [address] [place] Urea nitrogen [Mass/Vol] 10 mg/dL Normal 9-24 [facility] Comment on above: Order Comment: Speci men Type: BLOOD SPECIMEN Ordering Facility: [facility] Address: [address] [place] [address] Performed By: #### 2 4321-2 #### [facility] CLIA [id number] [address] [place] [address] [place] CBC panel Auto (Bld)on 08-19 Erythrocyte distribution width (RBC) [Ratio] 13.2 % Normal 11.5-15.0 [facility] Comment on above: Order Comment: Speci men Type: BLOOD SPECIMEN Ordering Facility: [facility] Address: [address] [place] [address] Performed By: #### 2 4321-2 #### [facility] CLIA [id number] [address] [place] [address] [place] Hematocrit (Bld) [Volume fraction] 39.0 % Normal 39.0-51.0 [facility] Comment on above: Order Comment: Speci men Type: BLOOD SPECIMEN Ordering Facility: [facility] Address: [address] [place] [address] Performed By: #### 2 4321-2 #### [facility] CLIA [id number] [address] [place] [address] [place] Hemoglobin (Bld) [Mass/Vol] 12.9 g/dL Low 13.0-17.0 [facility] Comment on above: Order Comment: Speci men Type: BLOOD SPECIMEN Ordering Facility: [facility] Address: [address] [place] [address] Performed By: #### 2 4321-2 #### [facility] CLIA [id number] [address] [place] [address] [place] MCH (RBC) [Entitic mass] 32.4 pg Normal 26.0-34.0 [facility] Comment on above: Order Comment: Speci men Type: BLOOD SPECIMEN Ordering Facility: [facility] Address: [address] [place] [address] Performed By: #### 2 4321-2 #### [facility] CLIA [id number] [address] [place] [address] [place] MCHC (RBC) [Mass/Vol] 33.1 g/dL Normal 30.5-36.0 [facility] Comment on above: Order Comment: Speci men Type: BLOOD SPECIMEN Ordering Facility: [facility] Address: [address] [place] [address] Performed By: #### 2 4321-2 #### [facility] CLIA [id number] [address] [place] [address] [place] MCV (RBC) [Entitic vol] 98.0 fL Normal 80.0-100.0 [facility] Comment on above: Order Comment: Speci men Type: BLOOD SPECIMEN Ordering Facility: [facility] Address: [address] [place] [address] Performed By: #### 2 4321-2 #### [facility] CLIA [id number] [address] [place] [address] [place] Nucleated RBC (Bld) [#/Vol] 10*3/uL Normal <0.01 [facility] Comment on above: Order Comment: Speci men Type: BLOOD SPECIMEN Ordering Facility: [facility] Address: [address] [place] [address] Performed By: #### 2 4321-2 #### [facility] CLIA [id number] [address] [place] [address] [place] Platelet mean volume (Bld) [Entitic vol] 9.7 fL Normal 9.0-12.7 [facility] Comment on above: Order Comment: Speci men Type: BLOOD SPECIMEN Ordering Facility: [facility] Address: [address] [place] [address] Performed By: #### 2 4321-2 #### [facility] CLIA [id number] [address] [place] [address] [place] Platelets (Bld) [#/Vol] 389 10*3/uL Normal 150-400 [facility] Comment on above: Order Comment: Speci men Type: BLOOD SPECIMEN Ordering Facility: [facility] Address: [address] [place] [address] Performed By: #### 2 4321-2 #### [facility] CLIA [id number] [address] [place] [address] [place] RBC (Bld) [#/Vol] 3.98 10*6/uL Low 4.20-6.00 [facility] Comment on above: Order Comment: Speci men Type: BLOOD SPECIMEN Ordering Facility: [facility] Address: [address] [place] [address] Performed By: #### 2 4321-2 #### [facility] CLIA [id number] [address] [place] [address] [place] WBC (Bld) [#/Vol] 11.15 10*3/uL High 3.70-11.00 [facility] Comment on above: Order Comment: Speci men Type: BLOOD SPECIMEN Ordering Facility: [facility] Address: [address] [place] [address] Performed By: #### 2 4321-2 #### [facility] CLIA [id number] [address] [place] [address] [place] LUMBAR SPINE WO IVCONon 0 08-20-2023 CT LUMBAR SPINE WO IVCON * * *Final Report* * * DATE OF EXAM: Aug 20 2023 9:34AM [facility] 0508 - CT LUMBAR SPINE WO IVCON [...] caudal rib-bearing vertebral body is designated T12. Spring Assembler (topogram) images: No additional findings. Alignment: Mild [...] crest and there are 5 lumbar-type vertebrae. 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: CITLALLI Transcribe Date/Time: Aug 20 2023 9:38A Dictated by : RICHARD WEI MD This examination was interpreted and the report reviewed and electronically signed by: JO ANN BARR MD on Aug 20 2023 10:22AM EST [id number] Normal [facility] MRI LUMBAR SPINE WO IVCONon 08-20-2023 MRI [...] and assume there are 5 lumbar-type vertebrae. 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: CITLALLI Transcribe Date/Time: Aug 20 2023 10:48P Dictated by : EMMA JERNIGAN MD This examination was interpreted and the report reviewed and electronically signed by: EMMA JERNIGAN MD on Aug 20 2023 11:01PM EST [id number] Normal [facility] THERAPY NTon 08-20-2023 THERAPY NT HNO ID: [id number] Author: DONN ARDON, PT Service: Physical Therapy Author Type: Physical Therapist Type: Therapy (PT/OT/Speech/Resp) Filed: 08/20/2023 15:41 Note Text: Physical Therapy Treatment Summary SERVICE DATE: 08/20/2023 SERVICE TIME: 1455 to 1520 ROOM: [facility] PT 6 Clicks Score: 17 DISCHARGE RECOMMENDATIONS [...] gait and mobility-other TREATMENT INTERVENTIONS Gait Training (20692), Therapeutic Activity (51663) Timed Code Treatment (minutes): 25 Skilled Treatment [...] August 20, 2023 TIME: 3:29 PM Normal [facility] THERAPY NT HNO ID: [id number] Author: DONN ARDON PT Service: ? Author Type: Physical Therapist Type: Therapy (PT/OT/Speech/Resp) Filed: 08/20/2023 11:43 Note Text: Physical Therapy Evaluation Summary SERVICE DATE: 08/20/2023 SERVICE TIME: 1025 to 1110 ROOM: [place] [address] PT 6 Clicks Score: 17 DISCHARGE RECOMMENDATIONS [...] and mobility-other TREATMENT INTERVENTIONS Evaluation, Therapeutic Activity (81145), Gait Training (25498) Timed Code Treatment (minutes): 30 Skilled Treatment [...] August 20, 2023 TIME: 11:43 AM Normal [facility] POSTPROC EVALon 024 ANES POSTPROC EVAL HNO ID: [id number] Author: OMARI PALACIOS MD Service: ? Author Type: Anesthesiologist Type: Anesthesia Postprocedure Evaluation Filed: 08/19/2023 20:50 Note Text: POST ANESTHESIA EVALUATION NOTE : 1955 Procedure Summary Date: 08/19/23 Room / Location: [address] [facility] Anesthesia Start: 1046 Anesthesia Stop: [...] August 19, 2023 TIME: 8:50 PM CSN: [id number] Normal [facility] ANES PRE-OPon 08-19-2023 ANES PRE-OP HNO ID: [id number] Author: AGATA MCLEOD MD Service: ? Author [...] POSTERIOR NONSEGMENTAL INSTRUMENTATION (Spine Lumbar) Location: MAIN IA[facility] Surgeons: Katherine Keith MD [...] and consent discussed: yes. Patient / Responsible Republican agrees to proceed: yes Patient / Surrogate [...] August 19, 2023 TIME: 9:47 AM CSN: [id number] Normal [facility] BRIEF OP NOTon 08-19-2023 BRIEF OP NOT HNO ID: [id number] Author: SCHUYLER GOFF MD Service: Neurosurgery Author Type: Resident Type: Brief Op Note Filed: 08/19/2023 18:40 Note Text: BRIEF OP NOTE LOG ID: [id number] Surgery/Procedure Date: 08/19/2023 Incision/Procedure Start Time: 12:23 PM Incision Close/Procedure End Time: Surgeon(s)/Procedural ist(s) and Mold Washer(s): Surgeon(s) and Role: * Katherine Keith MD - Primary * Schuyler Goff MD - Resident - Assisting * Hui Whyte MD - Fellow Procedure(s): L2-L5 OLIF and percutaneous PSF Anesthesia: General Findings: lumbar radiculopathy Estimated Blood Loss: 50 mls Specimens: * No specimens in log * Implants: Implant Name Type Inv. Item Serial No. Clean Rice Broker Lot No. LRB No. Used Action GRAFT INFUSE 20GA MEDIUM BOVINE COLLAGEN RHBMP-2 2X1IN BONE VIAL ABSORBABLE - [id number] Bone GRAFT INFUSE 20GA MEDIUM BOVINE COLLAGEN RHBMP-2 2X1IN BONE VIAL ABSORBABLE [id number] N/A 1 Implanted SIGNIFY GEL INSTAFILL CARTRIDGE 5CC [id number] Bone [employer] [id number] N/A 1 Implanted SIGNIFY GEL INSTAFILL CARTRIDGE 5CC [id number] Accessories [employer] [id number] N/A 1 Implanted SEALER EVS AQUAMANTYS TRANSCOLLATION .156IN 15D .025IN SPACE FLAT 5.49IN - [id number] Sealant - Tissue SEALER EVS AQUAMANTYS TRANSCOLLATION .156IN 15D .025IN SPACE FLAT 5.49IN [employer] ADVANCED ENERGY [id number] N/A 1 Non-Implant KNIFE BAYONET SURGICAL ANNULOTOMY SPINE Accessories [employer] N/A 1 Non-Implant CREO MIS LOCKING CAP Accessories [employer] N/A 8 Implanted CREO MIS 5.5MM CURVED CRYSTAL TI ALLOY 10CM Crystal [employer] N/A 1 Implanted SPACER RISE-L 3D LORDOTIC [id number] SPINAL NONSTERILE [employer] N/A 1 Implanted CREO MIS 5.5MM CURVED CRYSTAL TI ALLOY 11CM Crystal [employer] N/A 1 Implanted SPACER RISE-L 3D LORDOTIC [id number] SPINAL NONSTERILE [employer] N/A 2 Implanted [...] 19, 2023 TIME: 6:38 PM PAGER/CONTACT #: [phone] [facility] NURSING PROGon 08-19-2023 NURSING PROG HNO ID: [id number] Author: SINCERE RODRIGUEZ RN Service: Nursing Author Type: Registered Nurse Type: Nursing Progress Note Filed: 08/19/2023 20:51 Note Text: Transfer Note: PATIENT NAME: Braden Rodriguez [address]: [place] [address] Patient transferred into room/unit [place] [address] in stable condition. Actions taken: No futher actions taken at this time. Will continue to monitor and check with patient. Normal [facility] NURSING PROG HNO ID: [id number] Author: AKASH STARK RN Service: Nursing Author Type: Registered Nurse Type: Nursing Progress Note Filed: 08/19/2023 09:09 Note Text: 09 Good morning this is M21-14 R Michael reported to me in preop assessment that he fell in hallway and landed on left hip. States left foot drop weak and gave out. No LOC, No abrasion to left hip or leg. FYI Akash [address] Normal [facility] OPERATIVE NOon 08-19-2023 OPERATIVE NO HNO ID: [id number] Author: KATHERINE KEITH MD Service: Neurosurgery Author Type: Physician Type: Operative Report Filed: 08/20/2023 08:34 Note Text: OPERATIVE/PROCEDURE REPORT LOG ID: [id number] SURGERY/PROCEDURE DATE: 08/19/2023 INCISION/PROCEDURE START TIME: 12:23 PM INCISION CLOSE/PROCEDURE END TIME: 6:39 PM SURGEON(S)/PROCEDURAL IST(S) AND RESIDENTIAL GAS HEAT TECHNICIAN(S): Surgeon(s) and Role: * Katherine Keith MD - Primary * Schuyler Goff MD - Resident - Assisting * Hui Whyte MD - Fellow No Additional Staff Dr. Whyte assisted in the absence of a qualified resident. Dr. Goff is post graduate internship level and not qualified. SURGERY/PROCEDURE(S): L2-L3 oblique [...] huddle was (more content not included)... Normal [facility] XR LUMBAR 2V AP/LATon 2023 XR LUMBAR [...] L2 down to L5. IMPRESSION: Intraoperative imaging. 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: [employer] Transcribe Date/Time: Aug 19 2023 6:11P Dictated by : MANA TSAI MD This examination was interpreted and the report reviewed and electronically signed by: MANA TSAI MD on Aug 19 2023 6:12PM EST [id number] Normal [facility] XR LUMBAR 2V AP/LAT * * *Final [...] of pedicle screw fixation. IMPRESSION: Intraoperative imaging. 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: [employer]Simply Transcribe Date/Time: Aug 19 2023 5:57P Dictated by : MANA TSAI MD This examination was interpreted and the report reviewed and electronically signed by: MANA TSAI MD on Aug 19 2023 5:58PM EST [id number] [facility] XR LUMBAR 2V AP/LAT * * [...] surgical planning of discectomy. IMPRESSION: Intraoperative imaging. 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: PSCB Transcribe Date/Time: Aug 19 2023 5:21P Dictated by : MANA TSAI MD This examination was interpreted and the report reviewed and electronically signed by: MANA TSAI MD on Aug 19 2023 5:22PM EST [id number] Normal [facility] Linda 08-11-2023 CNPN Telephone (SPNSMN) BRADEN RODRIGUEZ ([id number]) 1955 M Date Time Provider Department 08/11/23 ANGELINA MAJOR During your visit today, we recorded the [...] Status:Closed by ANGELINA MAJOR on 08/11/23 Normal [facility] Basic metabolic 2000 panelon 08-06-2023 Anion gap [Moles/Vol] 13 mmol/L 9 - 18 mmol/L [facility] Calcium [Mass/Vol] 9.2 mg/dL 8.5 - 10. 2 mg/dL [facility] Chloride [Moles/Vol] 100 mmol/L 97 - 10 5 mmol/L [facility] CO2 [Moles/Vol] 24 mmol/L 22 - 30 mmol/L [facility] Creatinine [Mass/Vol] 1.00 mg/dL 0.73 - 1.22 mg/dL [facility] GFR/1.73 sq M.predicted among non-blacks MDRD (S/P/Bld) [Vol rate/Area] 83 mL/min/{1.73_m2} - PINF [facility] Comment on above: Estimated Glomerular Filtration [...] 100 mg/dL High 74 - 99 mg/dL [facility] Comment on above: The [place] Diabete s Association (ADA) provides guidance for [...] Standards of Medical Care in Diabetes 2016, [place] Diabetes Association. Diabetes Care. 2016.39(Suppl 1). Interpretation and review of laboratory results Abnormal [facility] Potassium [Moles/Vol] 4.1 mmol/L 3.7 - 5.1 mmol/L [facility] Sodium [Moles/Vol] 137 mmol/L 136 - 144 mmol/L [facility] Urea nitrogen [Mass/Vol] 23 mg/dL 9 - 24 mg/dL [facility] Anion gap [Moles/Vol] 13 mmol/L Normal 9-18 [facility] Comment on above: Order Comment: Roberto Carlos lion Type: BLOOD SPECIMEN Ordering Facility: [facility] Address: [address] [place] [address] Performed By: #### 2 4321-2, 2276-4, 77396-9 #### [facility] CLIA [id number] [address] [place] [address] [place] Calcium [Mass/Vol] 9.2 mg/dL Normal 8.5-10.2 [facility] Comment on above: Order Comment: Roberto Carlos lion Type: BLOOD SPECIMEN Ordering Facility: [facility] Address: [address] [place] [address] Performed By: #### 2 4321-2, 2276-4, 11006-8 #### [facility] CLIA [id number] [address] [place] [address] [place] Chloride [Moles/Vol] 100 mmol/L Normal 97-105 [facility] Comment on above: Order Comment: Speci men Type: BLOOD SPECIMEN Ordering Facility: [facility] Address: [address] [place] [address] Performed By: #### 2 4321-2, 2276-4, 54488-0 #### [facility] CLIA [id number] [address] [place] [address] [place] CO2 [Moles/Vol] 24 mmol/L Normal 22-30 [facility] Comment on above: Order Comment: Speci men Type: BLOOD SPECIMEN Ordering Facility: [facility] Address: [address] [place] [address] Performed By: #### 2 4321-2, 2276-4, 03589-6 #### [facility] CLIA [id number] [address] [place] [address] [place] Creatinine [Mass/Vol] 1.00 mg/dL Normal 0.73-1.22 [facility] Comment on above: Order Comment: Speci men Type: BLOOD SPECIMEN Ordering Facility: [facility] Address: [address] [place] [address] Performed By: #### 2 4321-2, 2276-4, 10692-3 #### [facility] CLIA [id number] [address] [place] [address] [place] Creatinine and Glomerular filtration rate.predicted panel (S/P/Bld) 83 mL/min/1.73m??? Normal >=60 [facility] Comment on above: Order Comment: Speci men Type: BLOOD SPECIMEN Ordering Facility: [facility] Address: [address] [place] [address] Result Comment: Yesica mated Glomerular Filtration Rate [...] actual GFR. Performed By: #### 2 4321-2, 6-4, 99566-0 #### [facility] CLIA [id number] [address] [place] [address] [place] Glucose [Mass/Vol] 100 mg/dL High 74-99 [facility] Comment on above: Order Comment: Speci men Type: BLOOD SPECIMEN Ordering Facility: [facility] Address: [address] [place] [address] Result Comment: The [place] Diabetes Association (ADA) provides guidance for cutoff [...] Standards of Medical Care in Diabetes 2016, [place] Diabetes Association. Diabetes Care. 2016.39(Suppl 1). Performed By: #### 2 4321-2, 6-4, 43557-6 #### [facility] CLIA [id number] [address] [place] [address] [place] Potassium [Moles/Vol] 4.1 mmol/L Normal 3.7-5.1 [facility] Comment on above: Order Comment: Smitai men Type: BLOOD SPECIMEN Ordering Facility: [facility] Address: [address] [place] [address] Performed By: #### 2 4321-2, 6-4, 88676-1 #### [facility] CLIA [id number] [address] [place] [address] [place] Sodium [Moles/Vol] 137 mmol/L Normal 136-144 [facility] Comment on above: Order Comment: Speci men Type: BLOOD SPECIMEN Ordering Facility: [facility] Address: [address] [place] [address] Performed By: #### 2 4321-2, 2276-4, 62822-0 #### [facility] CLIA [id number] [address] [place] [address] [place] Urea nitrogen [Mass/Vol] 23 mg/dL Normal 9-24 [facility] Comment on above: Order Comment: Speci men Type: BLOOD SPECIMEN Ordering Facility: [facility] Address: [address] [place] [address] Performed By: #### 2 4321-2, 6-4, 66103-8 #### [facility] [place] [id number] [address] [place] [address] [place] CBC W Auto Differential pane l (Bld)on 08-06-2023 Basophils (Bld) [#/Vol] 0.08 10*3/uL Normal <0.11 [facility] Comment on above: Order Comment: Speci men Type: BLOOD SPECIMEN Ordering Facility: [facility] Address: [address] [place] [address] Performed By: #### 5 7021-8 #### [facility] IA [id number] [address] [place] [address] [place] Basophils/100 WBC (Bld) 0.9 % Normal [facility] Comment on above: Order Comment: Speci men Type: BLOOD SPECIMEN Ordering Facility: [facility] Address: [address] [place] [address] Performed By: #### 5 7021-8 #### [facility] IA [id number] [address] [place] [address] [place] Differential cell count method Nom (Bld) Auto Normal [facility] Comment on above: Order Comment: Speci men Type: BLOOD SPECIMEN Ordering Facility: [facility] Address: [address] [place] [address] Performed By: #### 5 7021-8 #### [facility] CLIA [id number] [address] [facility] [place] [address] [place] Eosinophils (Bld) [#/Vol] 0.43 10*3/uL Normal <0.46 [facility] Comment on above: Order Comment: Speci men Type: BLOOD SPECIMEN Ordering Facility: [facility] Address: [address] [place] [address] Performed By: #### 5 7021-8 #### [facility] IA [id number] [address] [place] [address] [place] Eosinophils/100 WBC (Bld) 4.6 % Normal [facility] Comment on above: Order Comment: Speci men Type: BLOOD SPECIMEN Ordering Facility: [facility] Address: [address] [place] [address] Performed By: #### 5 7021-8 #### [facility] IA [id number] [address] [place] [address] [place] Erythrocyte distribution width (RBC) [Ratio] 12.7 % Normal 11.5-15.0 [facility] Comment on above: Order Comment: Speci men Type: BLOOD SPECIMEN Ordering Facility: [facility] Address: [address] [place] [address] Performed By: #### 5 7021-8 #### [facility] IA [id number] [address] [place] [address] [place] Hematocrit (Bld) [Volume fraction] 46.3 % Normal 39.0-51.0 [facility] Comment on above: Order Comment: Speci men Type: BLOOD SPECIMEN Ordering Facility: [facility] Address: [address] [place] [address] Performed By: #### 5 7021-8 #### [facility] IA [id number] [address] [place] [address] [place] Hemoglobin (Bld) [Mass/Vol] 15.1 g/dL Normal 13.0-17.0 [facility] Comment on above: Order Comment: Speci men Type: BLOOD SPECIMEN Ordering Facility: [facility] Address: [address] [place] [address] Performed By: #### 5 7021-8 #### [facility] IA [id number] [address] [place] [address] [place] Immature granulocytes (Bld) [#/Vol] 0.21 10*3/uL High <0.10 [facility] Comment on above: Order Comment: Speci men Type: BLOOD SPECIMEN Ordering Facility: [facility] Address: [address] [place] [address] Performed By: #### 5 7021-8 #### [facility] IA [id number] [address] [place] Immature granulocytes/100 WBC (Bld) 2.3 % Normal [facility] Comment on above: Order Comment: Speci men Type: BLOOD SPECIMEN Ordering Facility: [facility] Address: [address] [place] [address] Performed By: #### 5 7021-8 #### [facility] IA [id number] [address] [place] [address] [place] Lymphocytes (Bld) [#/Vol] 1.59 10*3/uL Normal 1.00-4.00 [facility] Comment on above: Order Comment: Speci men Type: BLOOD SPECIMEN Ordering Facility: [facility] Address: [address] [place] [address] Performed By: #### 5 7021-8 #### [facility] IA [id number] [address] [place] [address] [place] Lymphocytes/100 WBC (Bld) 17.2 % Normal [facility] Comment on above: Order Comment: Speci men Type: BLOOD SPECIMEN Ordering Facility: [facility] Address: [address] [place] [address] Performed By: #### 5 7021-8 #### [facility] IA [id number] [address] [place] [address] [place] MCH (RBC) [Entitic mass] 31.9 pg Normal 26.0-34.0 [facility] Comment on above: Order Comment: Speci men Type: BLOOD SPECIMEN Ordering Facility: [facility] Address: [address] [place] [address] Performed By: #### 5 7021-8 #### [facility] IA [id number] [address] [place] [address] [place] MCHC (RBC) [Mass/Vol] 32.6 g/dL Normal 30.5-36.0 [facility] Comment on above: Order Comment: Speci men Type: BLOOD SPECIMEN Ordering Facility: [facility] Address: [address] [place] [address] Performed By: #### 5 7021-8 #### [facility] IA [id number] [place] [address] [place] MCV (RBC) [Entitic vol] 97.9 fL Normal 80.0-100.0 [facility] Comment on above: Order Comment: Speci men Type: BLOOD SPECIMEN Ordering Facility: [facility] Address: [address] [place] [address] Performed By: #### 5 7021-8 #### [facility] IA [id number] [address] [place] [address] [place] Monocytes (Bld) [#/Vol] 1.13 10*3/uL High <0.87 [facility] Comment on above: Order Comment: Speci men Type: BLOOD SPECIMEN Ordering Facility: [facility] Address: [address] [place] [address] Performed By: #### 5 7021-8 #### [facility] CLIA [id number] [address] [place], [place] [address] [place] [address] [place] Monocytes/100 WBC (Bld) 12.2 % Normal [facility] Comment on above: Order Comment: Speci men Type: BLOOD SPECIMEN Ordering Facility: [facility] Address: [address] [place] [address] Performed By: #### 5 7021-8 #### [facility] CLIA [id number] [address] [place] [address] [place] Neutrophils (Bld) [#/Vol] 5.82 10*3/uL Normal 1.45-7.50 [facility] Comment on above: Order Comment: Speci men Type: BLOOD SPECIMEN Ordering Facility: [facility] Address: [address] [place] [address] Performed By: #### 5 7021-8 #### [facility] CLIA [id number] [address] [place] [id number] [place] Neutrophils/100 WBC (Bld) 62.8 % Normal [facility] Comment on above: Order Comment: Speci men Type: BLOOD SPECIMEN Ordering Facility: [facility] Address: [address] [place] [address] Performed By: #### 5 7021-8 #### [facility] CLIA [id number] [address] [place] [address] [place] Nucleated RBC (Bld) [#/Vol] 10*3/uL Normal <0.01 [facility] Comment on above: Order Comment: Speci men Type: BLOOD SPECIMEN Ordering Facility: [facility] Address: [address] [place] [address] Performed By: #### 5 7021-8 #### [facility] IA [id number] [address] [place] Nucleated RBC/100 WBC (Bld) [Ratio] 0.0 /[address] [facility] Comment on above: Order Comment: Speci men Type: BLOOD SPECIMEN Ordering Facility: [facility] Address: [address] [place] [address] Performed By: #### 5 7021-8 #### [facility] CLIA [id number] [address] [place] [id number] [place] Platelet mean volume (Bld) [Entitic vol] 9.6 fL Normal 9.0-12.7 [facility] Comment on above: Order Comment: Speci men Type: BLOOD SPECIMEN Ordering Facility: [facility] Address: [address] [place] [address] Performed By: #### 5 7021-8 #### [facility] CLIA [id number] [address] [facility] [place] [address] [place] Platelets (Bld) [#/Vol] 270 10*3/uL Normal 150-400 [facility] Comment on above: Order Comment: Speci men Type: BLOOD SPECIMEN Ordering Facility: [facility] Address: [address] [place] [address] Performed By: #### 5 7021-8 #### [facility] IA [id number] [address] [place] [address] [place] RBC (Bld) [#/Vol] 4.73 10*6/uL Normal 4.20-6.00 [facility] Comment on above: Order Comment: Speci men Type: BLOOD SPECIMEN Ordering Facility: [facility] Address: [address] [place] [address] Performed By: #### 5 7021-8 #### [facility] IA [id number] [address] [facility] [place] [address] [place] WBC (Bld) [#/Vol] 9.26 10*3/uL Normal 3.70-11.00 [facility] Comment on above: Order Comment: Speci men Type: BLOOD SPECIMEN Ordering Facility: [facility] Address: [address] [place] [address] Performed By: #### 5 7021-8 #### [facility] IA [id number] [address] [place] [address] [facility] [place] CONFIRM BLOOD TYPEon [address] [facility] Comment on above: Order Comment: Speci men Type: BLOOD SPECIMEN Ordering Facility: [facility] Address: [address] [place] [address] Performed By: #### C ONABO #### [facility] CLIA [id number] [address] [place] [address] [place] Rh Nom (Bld) Negative Normal [facility] Comment on above: Order Comment: Speci men Type: BLOOD SPECIMEN Ordering Facility: [facility] Address: [address] [place], [place] [address] Performed By: #### C ONABO #### [facility] CLIA [id number] [address] [place] [address] [facility] Performed By: #### T SCR30 #### [facility] CLIA [id number] [address] [place] [address] [facility] ECG COMPLETEon 08-06-2023 ECG COMPLETE Ventricular Rate : 5 5 BPM Atrial Rate : 55 BPM P-R Interval : 132 ms QRS Duration : 96 ms Q-T Interval : 420 ms QTC Calculation(Bazett) : 401 ms Calculated P Kempton : 57 degrees Calculated R Kempton : 63 degrees Calculated T Kempton : 73 degrees Sinus bradycardia Possible Left atrial enlargement Borderline ECG Confirmed by LEX ACUNA DO ([id number]) on 08/18/2023 10:08:16 AM NAME : BRADEN RODRIGUEZ PID : [id number] : 1955 Gender : Male Race : ORD : [id number] Procedure Date : Aug 06 2023 08:48:24 [...] KATHERINE KEITH Acquired by : dm, Normal [facility] Ferritin SerPl-mCncon 2023 Ferritin [Mass/Vol] 322.8 ng/mL Normal 30.3-565.7 [facility] Comment on above: Order Comment: Speci men Type: BLOOD SPECIMEN Ordering Facility: [facility] Address: [address] [place] [address] Performed By: #### 2 4321-2, 2276-4, 97102-4 #### [facility] CLIA [id number] [address] [facility] [place] [address] [facility] HISTORY PHYSICALon HISTORY PHYSICAL HNO ID: [id number] Author: SANAM GILL PA-C Service: ? Author Type: Physician Mold Washer Type: H&P Filed: 08/06/2023 12:03 Note Text: [...] over the last year. Relieving factors include Brocton and steroids. Aggravating factors include repetitive movement. [...] COVID-19 original vaccine, age 12+ yr, monovalent ([employer] - PURPLE TOP) 06/09/2020 Imm Admin: COVID-19 original vaccine, age 12+ yr, monovalent (PFIZER-BIONTECH - PURPLE TOP) 05/19/2020 Imm Admin: COVID-19 original vaccine, a (more content not included)... Normal [facility] Iron and Iron binding capaci ty panelon 08-06-2023 Iron [Mass/Vol] 99 ug/dL Normal 41-186 [facility] ital Comment on above: Order Comment: Speci men Type: BLOOD SPECIMEN Ordering Facility: [facility] Address: [address] [place] [address] Performed By: #### 2 4321-2, 2276-4, 74564-6 #### [facility] CLIA [id number] [address] [place], [place] [address] [place] [address] Iron binding capacity [Mass/Vol] 252 ug/dL Normal 232-386 [facility] Comment on above: Order Comment: Speci men Type: BLOOD SPECIMEN Ordering Facility: [facility] Address: [address] [place] [address] Performed By: #### 2 4321-2, 2276-4, 33971-8 #### [facility] CLIA [id number] [address] [place], [place] [address] [place] [address] Iron/TIBC [Molar ratio] 39.3 % Normal 15.0-57.0 [facility] Comment on above: Order Comment: Speci men Type: BLOOD SPECIMEN Ordering Facility: [facility] Address: [address] [place] [address] Performed By: #### 2 4321-2, 2276-4, 90785-2 #### [facility] CLIA [id number] [address] [place] [address] [place] Laboratory - Blood bankon ABO group Nom (Bld) O [facility] No Panel Informationon 08-05 [facility] STAPHYLOCOCCUS AUREUS AND MR SA SCREEN, PCR, NASALon 08-06-2023 S. aureus and MRSA panel BARBARA+probe (Nose) Not detected Normal Not Detected [facility] Comment on above: Order Comment: Speci men Type: SWAB Ordering Facility: [facility] Address: [address] [place] [address] Performed By: #### S APCR #### [facility] CLIA [id number] [address] [place] [address] [id number] TYPE AND SCREEN,30 DAYon Blood group antibody screen Ql Negative [facility] ABO O Normal [facility] Comment on above: Order Comment: Speci men Type: BLOOD SPECIMEN Ordering Facility: [facility] Address: [address] [place] [address] Performed By: #### T SCR30 #### [facility] CLIA [id number] [place] HIstorical Ab Scr Status Negative Normal [facility] Comment on above: Order Comment: Speci men Type: BLOOD SPECIMEN Ordering Facility: [facility] Address: [address] [place] [address] Performed By: #### T SCR30 #### [facility] CLIA [id number] [address] CNPNon 08-01-2023 CNPN Telephone (SPNSMN) BRADEN RODRIGUEZ ([id number]) 1955 M Date Time Provider Department 08/01/23 KATHERINE KEITH NSIA During your visit today, we recorded the following information about you: Wellington Castaneda RN 08/01/2023 9:02 AM Signed Called patient to offer sooner surgery date Left message to return call to the office [employer] MaidMelia Vieyra 08/01/2023 9:43 AM Signed Patient is returning nurse call pertaining to below message, sooner appt call back [phone] Wellington Castaneda RN 08/01/2023 10:53 AM Signed [...] Encounter Status:Closed by WELLINGTON CASTANEDA on 08/01/23 [facility] BRAD[facility] RODRIGUEZ ([id number]) 1955 M Date Time Provider Department 07/14/23 KATHERINE KEITH ZEIA During your visit today, we recorded the following information about you: Alyssa Lomax LPN 07/14/2023 12:15 PM Signed [facility]ceived, [facility] Statement [employer] forms and need signed by Dr. Keith Sent to Dr[facility] Keith via [facility] for signature Leave dates: 09/02/23-11/07/23 No Post [...] Encounter Status:Closed by ALYSSA LOMAX on 07/14/23 [facility]20[facility] BRADEN RODRIGUEZ ([id number]) 1955 M Date Time Provider Department 06/11/23 KATHERINE KEITH ZEIA During your visit today, we recorded the following information about you: Tara Rodriguez 06/11/2023 5:31 PM Signed Received Attending Physician's Statement from [facility]. Sent via [employer] for processing. Alyssa Lomax LPN 06/12/2023 2:44 PM Signed I received Jamey [employer] forms for LTD. I called patient to explain we don't complete LTD, but he stated that he is not currently working and have exhausted his STD. He states the form is due 06/12/23. Sending to CC. Oliver to review Wellington Castaneda RN 06/12/2023 4:42 PM Signed Neuro SPINE CARE COORDINATION QUICK NOTE Called patient to discuss disability paperwork. His PCP has completed his previous STD paperwork Patient is not scheduled for surgery until August. Discussed this office will be able to complete his disability paperwork postop Advised to reach out to his PCP to continue with disability until surgery. Patient states [employer] only needs office note. This office will [...] Encounter Status:Closed by WELLINGTON CASTANEDA on 06/12/23 [facility]29[facility]2023 [facility]SP[facility] BRADEN RODRIGUEZ ([id number]) 1955 M Date Time Provider Department 05/29/23 KATHERINE KEITH During your visit today, we recorded the following information about you: Wellington Castaneda, RN 05/29/2023 1:10 PM Signed Surgery Planning Name: Braden Rodriguez Age: [age] [...] phone call: 08/27 at 10 AM Nurse KEATING Please schedule 2 week post op Vikas Loyd ( virtual visit) Please schedule post op [...] X Education MC X Urology/CT Lumbar N/A TREK/ N/A Wellington Castaneda RN 05/29/2023 1:10 PM Signed Neuro SPINE [...] Status:Closed by WELLINGTON CASTANEDA on 05/29/[address] [facility] [address] LUMBAR SPINE WO IVCONon 0 05-04-2023 CT LUMBAR SPINE WO IVCON * * *Final Report* * * DATE OF EXAM: May 04 2023 8:14AM [facility] 0508 - CT LUMBAR SPINE WO IVCON [...] caudal rib-bearing vertebra is counted as T12. Spring Assembler (topogram) images: No significant additional findings Alignment: [...] crest and there are 5 lumbar-type vertebrae. 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: CITLALLI Transcribe Date/Time: May 04 2023 9:20A Dictated by : CLAIRE LAZAR MD This examination was interpreted and the report reviewed and electronically signed by: CLAIRE LAZAR MD on May 04 2023 9:32AM EST [id number] N Normal [facility] CT Lumbar spine WO contrasto n 05-04-2023 [facility] CNOVon 04-30-2023 CNOV Office Visit (SPNSMN ) BRADEN RODRIGUEZ ([id number]) 1955 M Date Time Provider Department 04/30/23 12:20 PM [...] Ester Cain MD REFERRING PROVIDER: Tello Gaspar [address] [facility] [address] Consult requested for an opinion regarding the [...] OF SYMPTOMS (more content not included)... Normal [facility] XR LUMBAR 4V AP/LAT/ FLEX/EX Ton 04-30-2023 [...] POSTSURGICAL AND DEGENERATIVE CHANGE DESCRIBED. NO INSTABILITY 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: PSCB Transcribe Date/Time: Apr 30 2023 10:33A Dictated by : HANK LUCIO MD This examination was interpreted and the report reviewed and electronically signed by: HANK LUCIO MD on Apr 30 2023 10:37AM EST [id number] N Normal [facility] XR Lumbar spine Views W flex ion and W extensionon 04-30-2023 [facility] XR SCOLIOSIS 2V PA STAND/LAT on [...] no bony erosions. IMPRESSION: Moderate thoracolumbar scoliosis. 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: PSCB Transcribe Date/Time: Apr 30 2023 2:05P Dictated by : CAMRYN MOSES MD This examination was interpreted and the report reviewed and electronically signed by: CAMRYN MOSES MD on Apr 30 2023 2:06PM EST [id number] N Normal [facility] XR Thoracic and lumbar spine Views for scoliosis W standingon 04-30-2023 [facility] Lab Reportson 03-07-2023 Lab Reports [id number]#1 .00TIFF Normal [facility] Reminderson 12-31-2022 Reminders - From: Marika Roberson To: EU - Recalls Lue; Sent: 10/30/2022 12:50:59 EDT Show up: 11/30/2022 12:50:00 EDT Subject: Reminder Message Due Date/Time: 12/30/2022 12:50:00 EDT Pt is to get PSA prior to f/u appt. Order was given to pt. Patient was seen in office 12/05/22 [facility] Lab Reportson 12-23-2022 Lab Reports [id number]#1 .00TIFF [facility] Formson 12-06-2022 Forms [id number]#1 .00CD:127 [facility] Pathology Noteon 12-06-2022 Pathology Note [id number]# 1.00CD:127 [facility] Screenson 12-06-2022 Screens [id number]# 1.00CD:127 [facility] Screens [id number]#1 .00CD:127 [facility] Patient Educationon 12-06-19 Patient Education Oncology Prostate [...] Where to find more information ? The [employer]: www.cancer.org ? [employer] Association: www.auanet.org Contact a health care [...] adds flu (more content not included)... Normal [facility] Urology Office/Clinic Noteon 12-05-2022 Urology Office/Clinic Note [...] upon bx. and 17% likelihood of detecting [place] scores >=7 cancer. MRI of prostate 10/28/22 [...] PSA FT Patient Education Prostate Cancer Screening Mary Vernon, personally scribed for Dr. Guillory on 12/05/2022 13:23:09. . Documentation recorded by the scribeMary, accurately reflects the services(s) I performed and decisions made by me. Authenticated by Dr. Guillory on 12/05/2022 13:40:23. Problem List/Past Medical History Ongoing BMI 26.0-26.9,adult BPH with obstruction/lower urinary tract symptoms Cervical radiculopathy Diverticular disease Diverticulosis Elevated PSA Epigastric pain Gross hematur (more content not included)... Normal [facility] Comment on above: Result Comment: Elec tronically Signed By: Kahlil JERNIGAN, Shae Powell\.br\Date and Time Signed: 09/28/23 13:41 EDT\.br\Electronically Co-Signed By: Mary Marino\.br\Date and Time Co-Signed: 12/05/22 13:23 EDT Operative Reporton Operative Report [id number]#1 .00CD:127 [facility] Lab Reportson 11-20-2022 Lab Reports [id number]#1. 00CD:127 [facility] Insurance Correspondenceon 0 11-04-2022 Insurance Correspondence [id number]# 1.00CD:127 [facility] Formson 10-31-2022 Forms [id number]# 1.00CD:127 [facility] Forms [id number]#1 .00CD:127 [facility] Ambulatory Visit Summaryon 0 10-30-2022 Ambulatory Visit Summary BRADEN RODRIGUEZ :1955 Visit Date:10/30/2022 Ambulatory Visit Instructions Your Diagnosis Elevated PSA BPH with obstruction/lower urinary tract symptoms Your Care Team Attending Physician - Kahlil [...] Shae Guillory MD Where: [facility] Javed Normal [facility] Patient Educationon 10-31-19 Patient Education Oncology [...] Where to find more information ? The [employer] Cancer [employer]: www.cancer.org ? [employer] Association: www.auanet.org Contact a health care [...] adds flu (more content not included)... Normal [facility] RAD - MRI Reporton 3 RAD - MRI Report [id number]#1 .00CD:127 Normal [facility] Urology Office/Clinic Noteon 10-30-2022 Urology Office/Clinic [...] follow up of elevated PSA. CT ab / 04/11/22 [...] of detecting Garrick scores >=7 cancer. MRI Prostate wo/w Con [...] the patient. Follow-up With When Contact Information Shae Guillory MD, URL, URO In 2 months Additional Instructions: w/PSA Patient Education Prostate Cancer Screen (more content not included)... Normal [facility] Comment on above: Result Comment: Elec tronically Signed By: Shae Guillory MD\.br\Date and Time Signed: 10/30/22 18:20 EDT\.br\Electronically Co-Signed By: Marika Roberson\.br\Date and Time Co-Signed: 10/30/22 11:03 EDT Creatinine (Bld) [Mass/Vol]O rdered By: Shae Guillory on 10-28-2022 Creatinine [Mass/Vol] 1.0 mg/dL 0.6-1.3 [facility] Comment on above: ER/ESD physician is notified/shown all ISTAT results.Critical values may be confirmed by laboratory testing ifdeemed necessary by ER attending doctor. MR prostate wo/w belinda 10-28 MR prostate wo/[place] [address] MRI Report Signed Patient: Braden Rodriguez MR#: [id number] : 1955 Acct:[id number] Age/Sex: 67 / M ADM Date: 10/28/22 Loc: MR Room: Type: [facility] Attending Dr: Shae Guillory MD Copies to: [...] Pisano Jr., D.O.10/28/2022 1:56 PM Dictation Location: [place] [address] Transcribed By: [facility] 10/28/22 1356 Dictated By: James Pisano Jr, DO 10/28/22 1351 Signed By: 10/28/[address] [place] [address] Lab Reportson 10-20-2022 Lab Reports [id number]#1 .00CD:127 [facility] Reminderson 10-16-2022 Reminders - From: Marika Roberson [...] pt's chart. Pt has f/u appt w/r Laurae 10/30/22 to review results. 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 Patient Educationon 09-05-19 23 Patient Education [...] Where to find more information ? The [employer]: www.cancer.org ? [employer] Association: www.auanet.org Contact a health care [...] adds flu (more content not included)... Normal [facility] Physician Referralon 023 Physician Referral [id number]#1 .00CD:127 Normal [facility] Screenson 09-04-2022 Screens [id number]#1 .00CD:127 Normal [facility] Screens [id number]#1 .00CD:127 Normal [facility] Urology Office/Clinic Noteon 09-04-2022 Urology Office/Clinic Note Chief Complaint elevated psa HPI Staff Evaluation requested by Dr Ester Cain due to elevated PSA. Pt is a new pt, never before seen in our office. PSA 06/07/19- 0.54 PSA 10/23/20- 0.58 PSA 12/28/21- 0.69 PSA F/T 08/20/22- 7.3 & 9.7% CT ab / 04/11/22 Painful urination: no Blood in urine: [...] pt evaluation of elevated PSA. CT ab 04/11/22 - [...] the patient. Follow-up With When Contact Information Shae Guillory MD, URL, URO In 4 weeks Additional Instructions: w/ PSA Patient Education Prostate Cancer Screening I, Marika Roberson, personally scribed for Dr. Guillory on 09/04/2022 08:37:41. . Documentation recorded by the scri (more content not included)... [facility] Comment on above: Result Comment: Elec tronically Signed By: Shae Guillory MD\.br\Date and Time Signed: 09/04/22 21:05 EDT\.br\Electronically Co-Signed By: Marika Roberson\.br\Date and Time Co-Signed: 09/04/22 08:38 EDT Lab Reportson 09-01-2022 Lab Reports [id number]#1 .00CD:127 Normal [facility] Physician Referralon 023 Physician Referral [id number]#1 .00CD:127 [facility] Provider Letter FTon 06-03 Provider Letter [facility] June 03, 2022 BRADEN RODRIGUEZ [address] [place] [address] BRADEN RODRIGUEZ 1955 To Whom It May Concern, The above named person may return to work without restrictions 06/03/22. Sincerely, Dr. Camryn Agustin MD General Surgery [facility] Ambulatory Visit Summaryon 0 05-21-2022 Ambulatory Visit Summary MICHAELBRADEN :1955 Visit Date:05/21/2022 Ambulatory Visit Instructions Your [...] OJ When: Only if needed Where: [address] [place] [address]- Medications What How Much When Instructions Unchanged [...] SVT (supraventricular tachycardia) Ventricular premature contractions Normal [facility] General Surgery Office/Clini c Noteon 05-21-2022 [...] JERNIGAN, OJ Kraus Only if needed [address] [place] [address]- Additional Instructions: Problem List/Past Medical History Ongoing [...] - Not Given Patient Refuses Normal [facility] Comment on above: Result Comment: Elec tronically Signed By: VAMSI JERNIGAN, Camryn Baker\Date and Time Signed: 05/21/22 15:01 EDT Coding Summary.on 05-15-2022 Coding Summary. CD:[id number] G h0bWw+PGhlYWQ+QU6HIII jP28clIDqhQ5uM0HZNIlR SywgQVBQTElOSyIgbmFtZ Q4usERkJFZj IC8+KF2tVQDbMmtkhHOva 4I9nIX6Y87ksy4iOIrfoU V9DZEmNwVasouqa7cayAs 6IDcuNmluOyBt CUGwaK03KRZ1vG18Fd18j HVujTUzi4ilgSo3NaPiPW KeXNY2rBetRMoha9OhPKR jN62uqYQsg6M8 SSPfuJfypGQqOdOewFC3r X3vCXwuqnxbd1htxyatAq m7px18oRFvb7R5cIX6F1P egwX1EAPysXGj CqgcrKEZcC8nvjpfm5icf nrvEzDkFEFgOJu5BRx8MV DisRqaWtSjLW61KXL4EHM hhyMuU5IlLBPp xQhkBmK9n1F8Sb5AG2NNT cltA7XLGKWDXIjyaNZ+PC 59tv79S0SzAvdqAmu1THD zUOE1xHE4cE1r HLAkTOvtn0P2dZH8Z7Ojx mMcet2gn8syXJCuLPqoS2 1zoQCxi1L3DNBbsTL6BWW wkQgnPnCxoV29 Oyc+ZINlgOymp0BdBnbcp 4qpp6xasZm7LipcNUEzbo EmoJlpKKJ5g7DwQb3hFTA brTV9yOT7cE0j UpVmXoU9VMnvK556RlYwc YKiSjwsX80cZ6TbpWQ+PH PtMeq4SUWfkAofCM0xR9Q hZGRpbmctbGVm oAfvYO6oRGQrlgduTVXus I1aIYOdE9g3XuQfOiT9ZA idF0WlOKMudegrMr96zJ8 uHuInYpL1CXhj H9GpmlV2ENIhcMIgYVjhA FH4D55po5M5EKUgHHHtRK Q1tYO4xC7oiAhqgcykpBF mdDsgdmVydGlj GCkiFNpxU871PNAyxGewF kNvZGluZyBEYXRlOiAgMD MvMDgvMjAyMzwvdGQ+PHR sPJJ0vExdSDEu eZVrVGvbXc4lgBjgaVavC T3vPNYbzrqhNKWkhR3bLE EvaORuoXiuWQ1hGQArdeh oa117OhFtTDH5 WTHokGCpW0LvkV4aLgEpV KTvAKNpO2ZiyVRfMAktM5 05IRgbUmN4VQFvvmKoQ0T sLWFsaWduOiB0 o0U5As4Tp1EphpaaP4Oqa KEuPdKqSiqsOWn9H1VnTz wvdHI+VE64AVWoHV44NPq 5ICK0aLqkDOjw YXUlO6CzrG9hDqEwLVQxJ GRkOyc+PHRhYmxlIHdpZH RoPScxMDAlJyBzdHlsZT0 vZf2jKHJrVBRw cBnotFVdGyNib8unQKKoY HpzHT7jpMyoF1JxiCN9KT Nyp8b1Jo84B02oX3LjrCW +UDIzvTD7qYC1 aG3vKbUoGiD3TJfcT302D dZbkNDzMvcxa3doo0ixoG g3DfF8GMBzuwCjhTbmOEV 0o5FaTt96X85d IHdpZHRoPSIxNSUiIHZhb Rypew1tzZ6pZf7+PGNvbC G8eTP8fZ2rLbYdUiX2MSi tP122TpUmuDDy Efzxt8zcz7sbbJw1VlOzK BXwtlBjaYebBHF7v1VpIl 21W4CzlBpox6FqTyc4xa8 3oNKpp0I7lGI5 X6OiPFLdzkfwfYCjcZvsG C8vYLTfiitrWRRzdK1bPZ XlT3m7VhEwEuX1MBwsK7V tkgI2SIHqzLQs YOTmaZRDmG2sjstcs8uim vwrUsOiQCAiNTu7BOt6HQ XrcAnuKmXiLKJ4GjY3RQP 6nTIgiB5rcIqz nfestT7gXvl+WST9iQLsr LCFPD2pYzyntFP+PHRkIH M5iGndCZszCGXkuK2aYHM kT2r1TwJfJnW7 SGntN1ElkdU9LPRnsGLpH OJgoULZaS5gwtgzp4nxdw qqEwFjLBBcUDl3BZy8VUH saWduOiBsZWZ0 HiB3MUX5dIMucD5gpBcyz acubH9hLgz+QmlydGggRG P4VTh6S8PhUyz5OCSzuNu iVC2asSApFWwq Cv6gqFgotKpdPZ2oLYRwy svuj730WeNqw4hbZKUxpT PtQPccUSM5I24hh8F9ZLW hNOApFXY8aVB2 eT9pwZehzgjueTFgsEple vJbkHrcFOdhSQauE495QO MmlHyoCyHaZEl4X8WnXth 1WLSzhBpcQY5c cVQgBGuwRd3qjFhdkTrpE O0dHWMwepney510JxCqq0 xlFNBrfDLhPZjuMWR5Q48 pi7Z5RXHaDJKl XTF8oCD9wX2lgNuuxjjnc GVmdDsgdmVydGljYWwtYW uyO381JMAuwUlsWtXtfGr 3A9GmIgn1KLHa cBcfPM8koTUbMTfhCe1rd RaueAkmFM9tAXZcksivn0 05CyRlz1vdILGfuYRlMZp xQUB2A26hq7A5 GRXnBTWcZUM4mGB0rH6mh GlnbjogbGVmdDsgdmVydG ceTAhhBXevH639XOHftCa nPlBhdGllbnQg CDghMFn0S2IcQfgkbEZ+P U47RPBgAW82uHRmsZTyg5 mncWz6QcRzBQFmTVI5cUa hJXwtf9LsPMOs W04yjOLjf4J3EQZzeDukc XZwYtIgaOJ9lM6eGYplgo szm4jnioqyYdmpk6gxmr4 9sU22S76yMPno ZHRoPSIzMCUiIHZhbGlnb s1acQ6lLr5+RSImsBK3uX T5hS3wSUJtBqN2YOhpN69 9InRvcCIvPjxj b1tts5twyPl7RhP4HXHsy lDmqWesHZS3x6QyOv27B1 9sIHdpZHRoPSIyMCUiIHZ xsUefmu4alE2s Ii8+CCNjsUY1uMH3dY9uE xMwUlR2ZEfbE825DvJejC UfSzsfF84eI3OegXL+PHR dLbp8BERgxIol HR8gaNBxCKvuWd3zXFL6N yQvDuIhIHmdX3TsYTTzoa trgypbdEF4WVPxFWTuhU6 3Vz5wtLjaVPKn lOSIdS0kpwaue6girjkgJ zMvKSGjHOh9TNq3NIPcqH gzMqIqQIT0AfF2SSN4pYB fwW9adWgoqyoo aU9kE5LaBJQwwxvwIm09b V5nCkQgKaV3ELbtXep+T0 xJVkVSLCBSSUNIQVJEIEw 8Q3BlGrn9KSJd aDikRY6sgXJmPThwPu0ox UwxvYbzCG7sFGZyedcbZI MquI4oCHYjeYQtfJbeCD3 pHFDcfjcvp711 QhHiZGY5WSQtwQNbY3Rzd N2yAeLtPAKkULWeX2RdpQ AbBRedH884SHunWqQ5LDB lqrJvX9GuYLCj kLelMoS3d1G7Uh9wLO4bL n8mUQF2VO55ZN43vSHet0 P1sZF3B5AkUIXvasdeqnw xpGI5URPyHFGo wC57tCRdTEpwJl0ug1B2t 587LYLeLBZywT11Wl3ibW qaDGXuzVCCeM1knlzvi1k vcjogIzAwMDAw IMo5GUz4NLUdaXhgQuPiN VK3ZbP4CIC7cAGecQ2phY ebejfiqY9nLzj+NjUgWWV vlxB3S1VvZmx8 QHUlkXqbNI5wcAHgWZwfH e9bdVcluTmjYL0wULBdwo zfYQKtlA2rPDGesXEwaQp tAL9vCUUrivtz e332ZeLcNSK4FIZiyBUrI 2EzyE1sAiGlYSQvVLEoB7 SnxKKbKZvlK953ZJzkTcK 8VFNddrOyE5Fh PQQxjErjUbS7n1V3Wm8AE MacMR71WW90jVDvc7E5sR F9D3HiLCVuchwvuajptOY 0WFUzAMEqiT72 zSMpSCevXz7su4V1p611K BXzEIVccB90Qo1xnPnmVZ PyuBEDxO7nesmvb8tfjdi gIzAwMDAwMDt0 GNm6RADtoRlfUvJtYUZ1C vH2GRD5kCHkvU3kiNpzcp gszH3tLqa+Y4Q3vLZ0mOU udDwvdGQ+PC90 ql63P3ThQhynYjy1BCZqH OQ3oCS3oK4bHVOwSAeet7 T7lND1V0XmizKscd4sz2h kLIKvZLkkH76f bTFsg9Q7ZYEptYP4ACFvp KmhNyYunN44Vxp+PGNvbG wzp9QyGoibp7ykj3imcAo 9IjMwJSIgdmFs gJoeZRJ8p5LqTe75T00bW HdpZHRoPSIzMCUiIHZhbG monr1xhX2zXg6+PGNvbCB 1tIQ5uH2pAgDd PrL5EQgwW914NfQrjDPzV yicf7wsr6cveTm9SpJuOY PxytBraZokRTP1l7IeSk6 0L7OpmSibj0Mn Voc7cc46rCDqq2K1dUY4V 3BhZGRpbmctbGVmdDogMC 6kKYBvzdxnKUIfbJ9vCME aO8w8ZvWiHrE8 QPucB7JgswL2GCMnnWGfS FXhnXKUeV7vukacb1bvka nnYfNtYFWiZJd5REz1JVX saWduOiBsZWZ0 FbD8PVR9cKVypI2vsDymm cuhuO0gZmp+OUm3c1pkxM AtGK1nzRH4KW33HF75oSC ax9T1yVC6V8Vt ZRPvundbhwgmzTR8TJAqW UGgbU17Ul0vaLkkMh9fWR PvDKR2HCQivITdM3NvxT9 yOiAjMDAwMDAw N6NqySVjVQfgK455NHzoG fK1FFAppeXfN7JrWKPhdR ncPpC5t0V2Ja6AQR05UW1 2OM62pJUkn0B4 cJQ9B6NhYLVzgkrxxakkk WP8TNVeCUDtvA80Hb1kbO viQz2lAUYqHCZ7XUJorGG jV8QbwS3pHlQq OZUbZXTvH1FwqVXeSKgjC 013BTxsPcP0JHPlqhEvD1 TjIXJcrGlxOuG8d1Y1Sq9 ZFk50WG35YE34 vWMdq2U1jGZ9E2AcWIBzp cptftxcpYF2EVGzAJWlcD 88Vi0viMnrMg6kNWMyQLG 6ORYhwEJdF1Zy gO3nWdXvYCTcUQWsW2Ahj XViEKqjG865VGrwYbV6EC UhhrLxG3IfLJGevQwbKnB 5c4C0Zo0RWJce hxh8W7YiDaeqmHE+PC90Y UPdJB24hXKphNOsx0aivK o9CiPrBMNbDHD1eQpuXKd wy5CmXJNpZ82p bGFw (more content not included)... Normal [facility] Physician Orderon 05-14-2022 Physician Order [id number]#1 .00CD:127 [facility] Formson 05-10-2022 Forms [id number]#1 .00CD:127 [facility] Ambulatory Visit Summaryon 0 05-07-2022 Ambulatory Visit [...] Camryn AGUSTIN MD Where: General Surgery Vamsi/Lois Yusuf [facility] General Surgery Office/Clini c Noteon 05-07-2022 [...] trivalent - Not Given Patient Refuses Normal [facility] Comment on above: Result Comment: Elec tronically Signed By: VAMSI JERNIGAN, Camryn Rodriguez\ronald\Date and Time Signed: 05/07/22 15:22 EST IntraOperative Documentson 0 05-03-2022 IntraOperative Documents [id number]# 1.00CD:127 [facility] IntraOperative Documents [id number]# 1.00CD:127 [facility] Coding Summary.on 05-01-2022 Coding Summary. CD:[id number] G h0bWw+PGhlYWQ+KU9QLFK zA23ycWCplY3JQ8tDNP4H XYMLDWHKAZ4PXQ0laYK3A JghK1LxucKh AfqdlHJiFZ36CQl0CCX1n JtgQFvwtR0xhFTxC3z1Tw OiFP39pN00YVkrUGGbSkS 3LjZpbjsgbWFy T4hjBjNudBDcBnk+PHRhY mxlIHdpZHRoPScxMDAlJy ReoLobZB5kGm8xCPPkWVG vbGxhcHNlOiBj m4oxFBUaFKdeXL1xaOjwL 1EwpQB6ATKfk7z6Ml92dP I+PNPfFHQ9yRsaOCxid07 0NvWfe0heKHB8 bWSaHNzoSGX6W24yu6W3S GTvOMGdJRR0zDY1aJ3zfD iiprvlV2TqnQAyZfA3DQX 0xMIesS3uxKsw xujpiD0gYwj+S84PMG1TH NWQXZ2RJdi7G7ZqXxxoxU I+NZ83WQAhHL00iHJhiTG hz6mlrLu6WvTn KXBhXZR0eIgoYFdlf0OkO IGzN80lsWReo2H4FTHlaI kdfXZuSnKtcQW2lV0oHEa gprowd1aulgex Kfeim4mvid48iO33M88uB LaeWOBgTZP9NQHgXTBupV sstj9ttC0mFa0+HVyoc6h jo6frjVl7OrTt CCSensXkhByqVYU6c2TrS t58S0IjxKrdc5DvRgt2tl 95kBOzl8A9gMX0IDuzTSQ lzK3wXBmdVlB7 GFUrMbJonM60xRGiKDbbK t9spWqrtNffMZ0mHWExlm upWDBicI8uMPTjdAZqeBv qIN6xLOEjzfjp b928TxXsCGW9XKLblAWlS 6TpdQ0rDwQzVLGxLKQlD1 XpzQWaJIxxZ598MKjhYkW 7VEWrfvDqI7Yw GXVkwZwxTeC3i3M0Lx0Ay 2IismstPCC7EMqeYLDbNm BkZqZuMtT9A6ImZio4GXZ fiMxcWE4uC1Cp QVHpsxwftqvkfXG2FANuQ YNrbB98yDVhUFpjBq1zr6 G1t200ELUnADHijT52Ma0 udDogMTBwdCBU mQ7wczpxt5wcsdlkEdNvL YUhGMf8KTj9SCPnkPtxPd XnJIL4KoA1YNH0hSAcyA2 qyHcmbmclkO6h Oyc+P83ajH5lTTQ1HVG9m nddVQQieuQqHJ97VE84Q5 RyPjwvdGFibGU+PGRpdiB niHesGL2bPrPp q4bss0FwHWabJ3GrACHlS ElhDww0IGGbKGG4bJG4rE 2sIVFtUQgwg0J4iDZ1T9V eztBwbx2yq9el DUNiBAljF84xyTPot0A2Q LYbrNS7URGarAdtKoYyxI 93Oyc+JKBftHfwh5TrEff iu7amh2stmYj6 LkCfLDThpoVmbAzrUDT4c 0IbJq76E84fGYruSMFrQD TiYIMzKYQvrEyrlk2jcF0 wIi8+PGNvbCB3 xVN8eR5kNQHfJyN3OJcgB 379FpRtyHMjAxrxm4rby8 vwaLt8UoTtVCYpcmIzqKo sNOP2q7OgKs82 G49pPMycQODgSCJyRHMnG TMrcLzswr1ugG5tUc3+PC 5ij5mmjb98jX02kEK+PHR cUVL7fEmvAQaf RFXehU6rFGiuGuH2UNFfK mKsqB61mDRqGFazFh1fbX vvfFvmCK4sYKTtbowtw22 6ZsRel5ioRHKb gLNuIWzkAZW4F54ly4N6U CXpWGFhWLG0eYS0eU7sgY lnbjogbGVmdDsgdmVydGl qLGkpSEseY642 IHRvcDsnPlBhdGllbnQgT mCcNPj1G1QbLus8YZFiqK zrIR9lwVLlINyeEl0jhCn szEalXE0qYDVx xxydw406OkCps3vwARZel XOpUBpbSXA0F17xj2X6QL RvWBPmNWY2lSH2eR4weTh nbjogbGVmdDsg jeHmkHtbMEpfNUrwT697V HRvcDsnPkJpcnRoIERhdG K6KZ64QK19aLKbo3G0sKU 6A3MvOJCohyta gezofUU7JKVbOQYvsA54B v7zyHrpZc3tEVDhWIM4PX YzpDBmY1EztU3yJtEsWNB lUKKqV3KngSPq FXwlD594CFwhIjW4PWLiw zBlO4InHRNrbYslWpM5g4 C1Dt4LW6B9ZS34EE74nQL gh9F8iLQ4R9Vv IOUzjlggmedzuXD2AWGsD FDvfR35Mi2fqUogKl0lQX JoEMP6URYcbGGqO0EygW2 yOiAjMDAwMDAw M6RqjGUoZCxvU280ICnjI mF1SUGxhaBsU9ZmMDKcpY ajYcS5n5Y4Ac1OEMv7CW0 9ZG98vAEmk8P4 wQV2Z6YzHIWmesdcuudxl FQ1FJLpIMLbwV75Vb5quF lsMj6lDZHdLMH6BTEkdUA wH0FdtK2bGeQq THRiJXNlP8UdjFHqIWfuV 248LRnmXiH3MFOepeGhJ6 VuPBXgdZezOdW9t8O9Qv7 OQQAkMI35RKL7 iDX9MZ66FH37U4XlPftpa GFibGU+PHRhYmxlIHdpZH RoPScxMDAlJyBzdHlsZT0 iUn6kPOCrKGXa sTswuWZjRzIkk2bkLGDcG ZnpNI1irDkgW2LuqZT6GI Fsu0w2Oc45V65pH4VfqMP +YQFrbKR6aGH7 aH1hZuOcIvA2VKksG476O vHbhEDtJywqk3mpo0mptO k4YhJ8DDLayqFliPcgVIZ 4m5ChDr48I95s IHdpZHRoPSIxNSUiIHZhb Sggfa7ajZ4sPn0+PGNvbC K4fZE3aV7pMhAtIuR9PYf qV965BaScuYKv Dxhqy3flg7avgQk6DjLwK RXwzqEchBquPKD9t4TxWd 97J4DvdBdqs3YuKjt6pk6 1wMYmh8K8gJI2 B6BcCMQnnmoqjPTpyOrqX F8gTKSzwpnjNLTejX0pRW GaO3q2NdUeBrY8LEwpZ6M njtR6UZUhzXSm EDgxFEE6L27tv7I8VFLhL PDkCOL3uBJ7gN8avTnunf ogbGVmdDsgdmVydGljYWw yYMfcT539VLXw cCvdTKWzvQ6pDQPxqJYag KteHK8yMCEmlpokDh3KEL ZFUiwgUklDSEFSRCBMPC9 7RC22nDItt2T1 jTM6S8KgJYJvligcskvat DB0HKHxVNOybA65cINtZD moYv1jb0R2t250FIGyRAC drA34Nm0oyFks VHTneJENiP3nuzucz5orz aadDeAbTNZwRQq3RPt3PT BcgTzuNcAgMAG3JzS6NII 6xVHriZ1lsTad ykuugT6zIrz+MDEvMDMvM Xt0GVaxiCJ+CGDuNFR2uJ mrYLvjRUObxF5yRBKpD4h 0TgBmJeW6AJwa Y3KmDEQozvjwNh99eH3vV zEaAeI9YLqmV2HnjfR1SJ UriUZpHXutDNP4C33ar4S 2JMAiNDIuTQB3 fOQ0tL3qfCsogxcitSGal DsgdmVydGljYWwtYWxpZ2 53VBZhzUfeNwN3DSfkEHH rHX50XX79iDBx f5H6kEE3D5VaWNEbomgdg vefzPA6FRNdFFLfzJ50bF JwSBweUa4kd5D3f201BFG nOQZegY54Lb3p uUynDQJlyXQZiT7zoyhib 8wjurtuRaQuBOUhVNr2ST k9HSQzaEepPfGcMFC6WtT 5XUQ7pKBnkS2t sEpleitvgI1zBml+TWFsZ TwvdGQ+SGDuSCA8gEcxXX wdWWIbjQ2zWCLoS3k8VvU aUvD4TKtdD4Da QRLbavnwAp28hX1oCjMwL jQ2BRpvE8LsmmZ2TXCygB IgHOmvZTC1V39nv7I9OIQ eBSNdUSN3gSL5 pL1vdRraceyzxNQesZjmg aByiSxoTMsjJEecY618WF RvcDsnPkFtYnVsYXRvcnk yK7SxWASYHDtb J5KlM9VgwUfejOM+PC90c q13R7SyYhsyHxe2EKWaXQ X9pAC9gF1dKHExSQtzx0T 0jSY6D2OuimXi ix5vx3mwJBIuNBocY30jv EVfo7Q6OSDreYM1UCRfwB exBuPdvR44Cau+PGNvbGd dd4GeWkboc3da z6wtaRg0EzOxVTAhhsJgp MtzJJG9l0BtGp45R64tCN dpZHRoPSIzMCUiIHZhbGl yxs3fiC8oVf8+ OCHquOX8gNI7oB0wUqTgX zE1ZMgeK990KpEuaIYnPv jau1wng1dkfOn8JhNeJNI gdmFsaWduPSJ0 m3BsUf19S1ZwrTdtg9EqG np7cn58zVQll8M6kBW1Q2 BhZGRpbmctbGVmdDogMC4 yMDBpbjtwYWRk gP3cKPWzP1x7JxTnOyC9C NwiT5LlvrB0KWNkiTYvIQ MlcLWJcD9wwphkz7llesy gIzAwMDAwMDt0 SQk5WWUpnTlhNaAbMRF1S qO8XWJ0jIEctT9thAhyhp vkkY2tKmu+JDi9c1kceBV pOR5uwZA2QA27 BO83dLSus8T3tSU8W9LjK CNgjyxeoeczsIK4OSRfRZ YorS99Xj4qwSvlGy9kVMY mYVT8SMLtoZIb N1KhjA2iDuPgGEKzIKLlF 2XxoXPcBAszM061LOefZd B7KNEpghLtG7FnUDJunLn xDpL6g5J0Lr4M QD53BO28QM74qSWbf3R8s MY8C4MyFWZprqfqdadrfQ P7AQYaEWRhcS53Vn3ipZl jQl6kJDCjKUX3 ZBTxwTFqL0JzvA1mAqMnZ ZBuQHMtL8WieEEhTDybV4 20GXpuTxZ0AJKtkkQkR6M sLWFsaWduOiB0 p3W9Oz0CQr53UK28DP73j KCjc5C8aBQ9J5TfTOUjin bvxiproIG9TUWyUEBphW6 3Mi1rjMynYh6u OMMkLYR9HRFasCNzE2Dvm N8rUvKzOWPpAYZoQ0PczR SxXAatH749FAnkLuV6KHP cbcVgW9HoJHVr yKffFgH0g6I0Ls8TRAnux xf8G6UxFtpfxKH+PC90YW PiOZ91vRNfmOQua1pubCq 2IzOjYPQhAFP0 eWxl (more content not included)... Normal [facility] Progress Note-Physicianon Progress Note-Physician Patient: BRADEN RODRIGUEZ Age: 67 years Sex: Male : 1955 Associated Diagnoses: None Author: Rich Abreu MD Postoperative Information Postoperative disposition: Postoperative disposition: To PACU. Optimetrix number: Optimetrix number [id number]. Anesthetic utilized: General. Special techniques: Warming device. Health Status Problem list: All Problems BMI 26.0-26.9,adult / SNOMED CT 9828952263 / Confirmed Diverticulosis / SNOMED CT 9522220238 / Confirmed Epigastric pain / SNOMED CT 347350225 / Confirmed Hernia, epigastric / SNOMED CT 625965752 / Confirmed Hypertension / SNOMED CT 2110515233 / Confirmed Incarcerated epigastric hernia / SNOMED CT 096244331 / Confirmed Inflamed skin tag / SNOMED CT 923028352 / Confirmed Internal hemorrhoid / SNOMED CT 103064586 / Confirmed Intradermal nevus / SNOMED CT 132857830 / Confirmed Lumbar radiculopathy / SNOMED CT 029047678 / Confirmed Lumbar spondylosis / SNOMED CT 090630045 / Confirmed Neoplasm of uncertain behavior of skin / SNOMED CT 471066928 / Confirmed Screening for malignant neoplasm of colon / SNOMED CT 530789433 / Confirmed Seborrheic keratosis / SNOMED CT 3397655394 / Confirmed Seborrheic keratosis, inflamed / SNOMED CT 9187848539 / Confirmed 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 Normal [facility] Comment on above: Result Comment: Elec tronically Signed By: Rich Abreu MD\.br\Date and Time Signed: 05/01/22 14:10 EST Consent for Anesthesiaon Consent for Anesthesia [id number]# 1.00CD:127 Normal [facility] Discharge Instructionson Discharge Instructions [id number]# 1.00CD:127 Normal [facility] IntraOperative Documentson 0 04-30-2022 IntraOperative Documents [id number]# 1.00CD:127 Normal [facility] Main OR Intraoperative Recor don 04-30-2022 Main OR Intraoperative Record IntraOp Document Type FT Summary Primary Physician: Camryn AGUSTIN MD Finalized Date/Time: 04/30/22 14:38:14 Pt. Name: BRADEN RODRIGUEZO.B./Sex: 1955 Male Med Rec #: [id number] Physician: Camryn AGUSTIN MD Financial #: [id number] Pt. Type: A Room/Bed: [place] [address] Admit/Disch: 04/29/22 06:06:35 - 04/29/22 11:30:00 Institution: [...] Camryn Mccann RN, Eugenia Peña Role Performed MARIANN Surgeon - Primary BEAUTICIAN APPRENTICE Time In 04/29/22 08:43:00 04/29/22 08:43:00 04/29/22 08:43:00 Time Out 04/29/22 09:34:00 04/29/22 09:34:00 04/29/22 09:34:00 Procedure HERNIA REPAIR VENTRAL HERNIA REPAIR VENTRAL HERNIA REPAIR VENTRAL ADULT(.) ADULT(.) ADULT(.) Comments Dr. Mendez supervising Last Modified By: Lelia RN, June Rowell RN, June Rowell RN, June Moncada 04/29/22 09:34:47 04/29/22 09:34:47 04/29/22 09:34:47 Entry 4 Entry 5 Entry 6 Case Attendee Lelia GOMEZ, June Alan RN, Zhang Braun Role Performed Sign Manufacturer - Primary Sign Manufacturer - Primary Scrub - Primary Time In 04/29/22 08:43:00 04/29/22 08:43:00 04/29/22 08:43:00 Time Out 04/29/22 09:34:00 04/29/22 09:34:00 04/29/22 09:34:00 Procedure HERNIA REPAIR VENTRAL HERNIA REPAIR VENTRAL HERNIA REPAIR VENTRAL ADULT(.) ADULT(.) ADULT(.) Comments Last Modified By: Lelia RN, June Rowell RN, June Rowell RN, June Moncada 04/29/22 09:34:47 04/29/22 09:34:47 04/29/22 09:34:47 Entry 7 Case Attendee Hui Griffith Role Performed Scrub - Primary Time [...] RN, Lelia Bello RN, Waqas Monk RN, Gualbetro Saldaña Adam A, Felton, Lauren R Time [...] and tissue Entry 1 Skin Integrity Intact, [place], Warm, and Skin Abnormality No Dry, Other/See Comments Outcomes Met? Y (more content not included)... Normal [facility] Preoperative Documentson Preoperative Documents [id number]# 1.00CD:127 Normal [facility] Consent for Treatmenton 04-11 Consent for Treatment [id number]#1 .00CD:127 Normal [facility] Inpatient Patient Summaryon 04-29-2022 Inpatient Patient Summary [address] [id number] [facility] Clinical Discharge Instructions PERSON INFORMATION Name: BRADEN RODRIGUEZ [facility]#:[id number] PHYSICIANS Admitting Physician: Camryn AGUSTIN MD Attending Physician: Camryn AGUSTIN MD PCP: Ant JERNIGAN, Ester Discharge Diagnosis: Incarcerated incisional hernia; Unspecified abdominal pain Comment: PATIENT EDUCATION INFORMATION Instructions: Laparoscopic Ventral Hernia Repair, Care After; Post Op Patient Instructions - FT (CUSTOM) Medication Leaflets: Follow up: With: Address: When: Camryn AGUSTIN [address] [place] [address], [address], [address] [address] Business (1) Within 7 to 10 days MEDICATION LIST New Medications [id number], [address], [place] [id number], [phone] acetaminophen-oxycodo ne (acetaminophen-oxycod one 325 mg-5 mg [...] Capsules By Mouth every day. Comment: Normal [facility] Main OR PACU I Recordon 04-11 Main OR PACU I Record PACU Phase I Docum ent Type FT Summary Primary Physician: Camryn AGUSTIN MD Finalized Date/Time: 04/29/22 10:13:04 Pt. Name: BRADEN RODRIGUEZ Lew Balderas./Sex: 1955 Male Med Rec #: [id number] Physician: Camryn AGUSTIN MD Financial #: [id number] Pt. Type: A Room/Bed: [place] [address] Admit/Disch: 04/29/22 06:06:35 - Institution: Case Times [...] By: Lovely Johnson RN 04/29/22 10:13 Normal [facility] Main OR Preoperative Recordo n 04-29-2022 Main OR Preoperative Record PreOp Document Type FT Summary Primary Physician: Camryn AGUSTIN MD Finalized Date/Time: 04/29/22 08:59:43 Pt. Name: MICHAELBRADENO.B./Sex: 1955 Male Med Rec #: [id number] Physician: Camryn AGUSTIN MD Financial #: [id number] Pt. Type: A Room/Bed: [place] [address] Admit/Disch: 04/29/22 06:06:35 - Institution: Case Times [...] By: June Rowell RN 04/29/22 08:59 Normal [facility] Monitor Recordon 04-29-2022 Monitor Record [id number]# 1.00CD:127 Normal [facility] Operative Reporton Operative Report SURGERY DATE: [...] sent to Recovery Room in good condition. Diamond Romano FACS Dictated: 04/29/2022 [id number] Transcribed: 04/29/2022 cc:Ester Cain M.D. [facility] Comment on above: Result Comment: Elec tronically Signed By: VAMSI JERNIGAN, Camryn Rodriguez\.br\Date and Time Signed: 04/29/22 10:49 EST Outpatient Surgery Discharge Instructionon 04-29-2022 Outpatient Surgery Discharge Instruction [place] [id number] Patient Discharge Instructions PERSON INFORMATION Name: BRADEN RODRIGUEZ Date of : 1955 Current Date: 04/29/2022 [...] THE NEAREST EMERGENCY ROOM OR CALL 911 I, BRADEN RODRIGUEZ, have received the attached patient education materials/instruction s and have verbalized understanding: May we do a follow up call? Yes No I was present when discharge instructions were given Patient Signature Date Clinican/Nurse Signature Date Follow up: With: Address: When: Camryn Pope, [address], [facility] [address] [place] [address] Business (1) Within 7 to 10 days Pharmacy Information: You may receive a survey from [employer] asking you to rate your care experience. Your feedback is important and will help us understand what we do well and how we can improve the quality of care we provide to you, your loved ones and our community. It?s an honor to serve you. 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 ? Change your dressing as [...] a h (more content not included)... 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 ? Change your dressing as [...] care provider approves. General instructions ? Take vmak-sub-qcapfdw and prescription medicines only as told by your health care provider. ? To prevent or treat constipation while you are taking prescription pain medicine, your health care provider may recommend that you: ? Take dowl-lvj-tbvxdff or prescription medicines. ? Eat foods that [...] 02/10/2013 Document Revised: 02/06/2018 Document Reviewed: 10/16/2016 [employer] Patient Education ? 2019 [employer]. [facility] Progress Note-Physicianon Progress Note-Physician Patient: BRADEN RODRIGUEZ [...] All Problems BMI 26.0-26.9,adult / SNOMED CT 5318502891 / Confirmed Diverticulosis / SNOMED CT 0612031730 / Confirmed Epigastric pain / SNOMED CT 534476481 / Confirmed Hernia, epigastric / SNOMED CT 707811389 / Confirmed Hypertension / SNOMED CT 9286878956 / Confirmed Incarcerated epigastric hernia / SNOMED CT 950830613 / Confirmed Inflamed skin tag / SNOMED CT 295070487 / Confirmed Internal hemorrhoid / SNOMED CT 803520284 / Confirmed Intradermal nevus / SNOMED CT 180832358 / Confirmed Lumbar radiculopathy / SNOMED CT 910821067 / Confirmed Lumbar spondylosis / SNOMED CT 228254804 / Confirmed Neoplasm of uncertain behavior of skin / SNOMED CT 245879330 / Confirmed Screening for malignant neoplasm of colon / SNOMED CT 730076012 / Confirmed Seborrheic keratosis / SNOMED CT 1171766954 / Confirmed Seborrheic keratosis, inflamed / SNOMED CT 0391810257 / Confirmed 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 Normal [facility] Comment on above: Result Comment: Elec tronically Signed By: Brady JERNIGAN, Rich Hernandez\.ju\Date and Time Signed: 04/29/22 06:29 EST Formson 04-26-2022 Forms [id number] .00CD:127 Normal [facility] Consent for Procedure/Surger yon 04-24-2022 Consent for Procedure/Surgery [id number] .00CD:127 Normal [facility] Ambulatory Visit Summaryon 0 04-23-2022 Ambulatory Visit Summary BRADEN RODRIGUEZ Lew :1955 Visit Date:04/19/2022 Ambulatory Visit Instructions Your [...] Follow-Up Appointments Friday 8:30 AM EST Where: [facility] Services Medications What How Much When [...] SVT (supraventricular tachycardia) Ventricular premature contractions Normal [facility] BUNon 04-22-2022 Urea nitrogen [Mass/Vol] 25 mg/dL High 5-21 [facility] Comment on above: Performed By: #### 2 569503, 3502580, 2710000, 9011081, 41957453, 3511700 ####[facility] [address] [place] [address] CBC w/Indiceson 04-22-2022 Erythrocyte distribution width (RBC) [Ratio] 12.2 % Normal 10.9-14.2 [facility] Comment on above: Performed By: #### 2 920449, 9635985, 7958897, 4843934, 76685864, 2381868 ####[facility] [address] [place] [address] Hematocrit (Bld) [Volume fraction] 44.4 % Normal 37.7-49.0 [facility] Comment on above: Performed By: #### 2 218624, 3144821, 0154782, 5634498, 16461070, 9145495 ####[facility] [address] [place] [address] Hemoglobin (Bld) [Mass/Vol] 14.8 g/dL Normal 13.5-17.5 [facility] Comment on above: Performed By: #### 2 883784, 4563193, 7063662, 2708645, 74045574, 3831798 ####[place] [id number] MCH (RBC) [Entitic mass] 31.6 pg Normal 27.0-34.0 [facility] Comment on above: Performed By: #### 2 660866, 7048314, 7979160, 6120229, 27029313, 9656745 ####[place] [address] MCHC (RBC) [Mass/Vol] 33.3 g/dL Normal 31.4-36.0 [facility] Comment on above: Performed By: #### 2 407034, 9001835, 9335127, 2264799, 69781041, 3797709 ####[address] [address] MCV (RBC) [Entitic vol] 95.1 fL Normal 80.0-100.0 [facility] Comment on above: Performed By: #### 2 683580, 3228915, 4343342, 0314284, 52234123, 0370513 ####[address] [address] Platelet mean volume (Bld) [Entitic vol] 8.4 fL Normal 6.4-10.8 [facility] Comment on above: Performed By: #### 2 376735, 1772934, 1548334, 1670935, 54912231, 3114047 ####[place] [address] [place] [address] Platelets (Bld) [#/Vol] 286.0 E9/L Normal 150.0-500.0 [facility] Comment on above: Performed By: #### 2 794587, 2393175, 3778214, 8990254, 84391126, 7700299 ####[facility] [address] [place] [address] RBC (Bld) [#/Vol] 4.7 E12/L Normal 4.3-5.9 [facility] Comment on above: Performed By: #### 2 626996, 0401261, 6155437, 7455922, 53935064, 5127421 ####[facility] [address] [place] [address] WBC corrected for nucl RBC Auto (Bld) [#/Vol] 9.2 E9/L Normal 4.0-11.0 [facility] Comment on above: Performed By: #### 2 415608, 0889654, 1106917, 7911457, 01292890, 1618281 ####[place] [address] [place] [id number] Consent for Procedure/Surger yon 04-22-2022 Consent for Procedure/Surgery [id number] .00CD:127 Normal [facility] Consent for Treatmenton 04-10 Consent for Treatment [id number] .00CD:127 Normal [facility] Creatinineon 04-22-2022 Creatinine [Mass/Vol] 1.0 mg/dL Normal 0.5-1.3 [facility] Comment on above: Performed By: #### 2 082911, 9902872, 8910628, 7340765, 95397813, 3451827 ####[facility] [address] [place] [address] Glucoseon 04-22-2022 Glucose [Mass/Vol] 114 mg/dL Normal 55-199 [facility] Comment on above: Performed By: #### 2 054759, 0359135, 9844848, 6019897, 51397853, 3436828 ####[facility] [address] [place] [address] Lyteson 04-22-2022 Anion gap [Moles/Vol] 12 mmol/L Normal 6-16 [facility] Comment on above: Performed By: #### 2 517218, 1825962, 6184460, 8769362, 36539891, 6022376 ####[facility] [address] [place] [address] Chloride [Moles/Vol] 103 mmol/L Normal 101-111 [facility] Comment on above: Performed By: #### 2 056077, 0375362, 1730203, 5112810, 73839695, 1738677 ####[facility] [address] [place] [address] CO2 [Moles/Vol] 27 mmol/L Normal 21-31 [facility] Comment on above: Performed By: #### 2 606513, 2607346, 2880890, 3338906, 09413355, 7874389 ####[facility] [address] [place] [address] Potassium [Moles/Vol] 3.6 mmol/L Normal 3.5-5.3 [facility] Comment on above: Performed By: #### 2 563293, 9077055, 6642885, 0491756, 87721958, 8036306 ####[facility] [address] [place] [address] Sodium [Moles/Vol] 138 mmol/L Normal 135-145 [facility] Comment on above: Performed By: #### 2 773075, 4396370, 1203226, 2966225, 00861587, 6628538 ####[facility] [address] [place] [address] XR Chest 2 Viewson 3 XR Chest [...] MD, V. Transcribed by: YONAS Technologist: ARLEN Yusuf [facility] eGFRon 04-22-2022 GFR/1.73 sq M.predicted among blacks MDRD (S/P/Bld) [Vol rate/Area] mL/min/{1.73_m2} Normal >=59 [facility] Comment on above: Order Comment: Order added by Discern Expert. Result Comment: eGFR is race adjusted. AA=. Performed By: #### 2 530848, 5209706, 5897513, 5200729, 80821995, 7603893 ####[facility] [address] [place] [address] GFR/1.73 sq M.predicted among non-blacks MDRD (S/P/Bld) [Vol rate/Area] mL/min/{1.73_m2} Normal >=59 [facility] Comment on above: Order Comment: Order added by Discern Expert. Result Comment: Learning Support Teacher mars kidney disease could be indicated at eGFR's of less than 60 mL/min/1.73m2. Kidney failure is indicated at less than 15 mL/min/1.73m2. Performed By: #### 2 830789, 1832401, 1352839, 5737123, 14464578, 8898677 ####[facility] [address] [place] [address] General Surgery Office/Clini c Noteon 04-19-2022 General [...] SARS-CoV-2 (COV (more content not included)... Normal [facility] Comment on above: Result Comment: Elec [...] by: WILTON NICHOLE Date: 2022-04-12 08:12 Normal [facility] Lab Reportson 04-12-2022 Lab Reports [id number] .00CD:127 Normal [facility] RAD - CT Reporton 04-12-2022 RAD - CT Report [id number] .00CD:127 Normal [facility] CREATININEon 04-11-2022 Creatinine [Mass/Vol] 0.80 mg/dL Normal 0.70-1.30 [facility] Comment on above: Performed By: #### P SASC, VITAD #### [facility] [address] [place] [address] [address] Max Peck EGFR-AF MALTESE >60 Normal >=60 [facility] Comment on above: Performed By: #### P SASC, VITAD #### [facility] [address] [place] [address] [address] Max Peck EGFR-NON AF MALTESE >60 Normal >=60 [facility] Comment on above: Performed By: #### P SASC, VITAD #### [facility] [address] [place] [address] [address] Max Peck Ambulatory Visit Summaryon 0 04-10-2022 Ambulatory Visit Summary BRADEN RODRIGUEZ Lew :1955 Visit Date:04/03/2022 Ambulatory Visit Instructions Your [...] SVT (supraventricular tachycardia) Ventricular premature contractions Normal [facility] Facesheeton 04-04-2022 Facesheet [id number] .00CD:127 Normal [facility] ED Note-Physicianon 03-21-19 ED Note-Physician [id number] .00CD:127 Normal [facility] RAD - MISCon 03-18-2022 RAD - MISC [id number] .00CD:127 Normal [facility] XR ABD FLAT UP_PA Kuldip 03-16 [...] by: EDENILSON KNIGHT Date: 2022-03-16 10:42 Normal [facility] LIPID PROFILEon 03-06-2022 CHOL-HDL RATIO NORM SEE BELOW Normal [facility] Comment on above: Result Comment: 3.3 - 4.4 LOW RISK 4.4 - 7.1 AVERAGE RISK 7.1 - 11.0 MODERATE RISK >11.0 HIGH RISK Performed By: #### P SASC, VITAD #### [facility] [address] [address] [address] Max Peck Cholesterol [Mass/Vol] 163 mg/dL Normal <=200 [facility] Comment on above: Performed By: #### P SASC, VITAD #### [facility] [address] [address] [address] Max Peck Cholesterol in HDL [Mass/Vol] 50 mg/dL Normal 40-60 [facility] Comment on above: Performed By: #### P SASC, VITAD #### [facility] [address] [place] [address] Dr. Max Peck Cholesterol in LDL [Mass/Vol] 100.0 mg/dL Normal [facility] Comment on above: Performed By: #### P SASC, VITAD #### [facility] [address] [address] [address] Max Peck Cholesterol.total/Cho lesterol in HDL [Mass ratio] 3.3 {ratio} Normal [facility] Comment on above: Performed By: #### P SASC, VITAD #### [facility] [address] [address] [address] Max Peck HDL NORMAL > or = 60 mg/dl - LO W CARDIOVASCULAR RISK <40 mg/dl - HIGH CARDIOVASCULAR RISK Normal [facility] Comment on above: Performed By: #### P SASC, VITAD #### [facility] [address] [address] [address] Max Peck LDL CALC NORMAL SEE BELOW Normal [facility] Comment on above: Result Comment: <100 mg/dl OPTIMAL 100 - 129 mg/dl NEAR OR ABOVE OPTIMAL 130 - 159 mg/dl BORDERLINE HIGH 160 - 189 mg/dl HIGH >190 mg/dl VERY HIGH Performed By: #### P SASC, VITAD #### [facility] [address] [place] [address] Dr. Max Peck Triglyceride [Mass/Vol] 65 mg/dL Normal <=150 [facility] Comment on above: Performed By: #### P SASC, VITAD #### [facility] [address] [place] [address] Dr. Max Peck VLDL CALC 13.0 mg/dL Normal [facility] Comment on above: Performed By: #### P BILLYC, VITAD #### [facility] [address] [place] [address] Dr. Max Peck PROF 14(COMP METB)on 022 Albumin [Mass/Vol] 3.9 g/dL Normal 3.4-5.0 [facility] Comment on above: Performed By: #### P BILLYC, VITAD #### [facility] [address] [place] [address] Dr. Max Peck Albumin/Globulin [Mass ratio] 1.3 {ratio} Normal [facility] Comment on above: Performed By: #### P BILLYC, VITAD #### [facility] [address] [place] [address] Dr. Max Peck ALP [Catalytic activity/Vol] 79 U/L Normal 46-116 [facility] Comment on above: Performed By: #### P BILLYC, VITAD #### [facility] [address] [place] [address] Dr. Max Peck ALT [Catalytic activity/Vol] 24 U/L Normal 16-63 [facility] Comment on above: Performed By: #### P SASC, VITAD #### [facility] [address] [place] [address] Dr. Max Peck Anion gap [Moles/Vol] 12.3 mmol/L Normal [facility] Comment on above: Performed By: #### P SASC, VITAD #### [facility] [address] [place] [address] Dr. Max Peck AST [Catalytic activity/Vol] 25 U/L Normal 15-37 [facility] Comment on above: Performed By: #### P SASC, VITAD #### [facility] [address] [address] [address] Max Peck Bilirubin [Mass/Vol] 1.4 mg/dL Critically high 0.2-1.0 [facility] Comment on above: Performed By: #### P SASC, VITAD #### [facility] [address] [address] [address] Max Peck Calcium [Mass/Vol] 9.1 mg/dL Normal 8.5-10.1 [facility] Comment on above: Performed By: #### P SASC, VITAD #### [facility] [address] [address] [address] Max Peck Chloride [Moles/Vol] 100 mmol/L Normal 98-107 [facility] Comment on above: Performed By: #### P SASC, VITAD #### [facility] [address] [place] [address] Dr. Max Peck CO2 [Moles/Vol] 30.7 mmol/L Normal 21.0-32.0 [facility] Comment on above: Performed By: #### P SASC, VITAD #### [facility] [address] [address] [address] Max Peck Creatinine [Mass/Vol] 0.86 mg/dL Normal 0.70-1.30 [facility] Comment on above: Performed By: #### P SASC, VITAD #### [facility] [address] [address] [address] Max Peck EGFR-AF MALTESE 60 mL/min/1.73m2 Normal >=60 [facility] Comment on above: Performed By: #### P SASC, VITAD #### [facility] [address] [address] [address] Max Peck EGFR-NON AF MALTESE 60 mL/min/1.73m2 Normal >=60 [facility] Comment on above: Performed By: #### P SASC, VITAD #### [facility] [address] [place] [address] Dr. Max Peck Globulin (S) [Mass/Vol] 3.1 g/dL Normal [facility] Comment on above: Performed By: #### P SASC, VITAD #### [facility] [address] [place] [address] Dr. Max Peck Glucose [Mass/Vol] 102 mg/dL Normal 74-[address] [facility] Comment on above: Performed By: #### P SASC, VITAD #### [facility] [address] [place] [address] Dr. Max Peck Potassium [Moles/Vol] 4.0 mmol/L Normal 3.5-5.1 [facility] Comment on above: Performed By: #### P SASC, VITAD #### [facility] [address] [place] [address] Dr. Max Peck Protein [Mass/Vol] 7.0 g/dL Normal 6.4-8.[address] [facility] Comment on above: Performed By: #### P SASC, VITAD #### [facility] [address] [place] [address] Dr. Max Peck Sodium [Moles/Vol] 139 mmol/L Normal 136-[address] [facility] Comment on above: Performed By: #### P SASC, VITAD #### [facility] [address] [place] [address] Dr. Max Peck Urea nitrogen [Mass/Vol] 10.0 mg/dL Normal 7.0-18.0 [facility] Comment on above: Performed By: #### P SASC, VITAD #### [facility] [address] [place] [address] Dr. Max Peck Urea nitrogen/Creatinine [Mass ratio] 11.6 mg/mg Normal [facility] Comment on above: Performed By: #### P SASC, VITAD #### [facility] [address] [place] [address] Dr. Max Peck XR CSPINE MIN 4 [...] WILTON NICHOLE Date: 2022-01-19 07:14 Normal [facility] HEPATITIS PANEL, ACUTEon HBsAg Screen Negative Normal Negative [facility] Comment on above: Performed By: #### P SASC, VITAD #### [facility] [address] [place] [address] Dr. Max Peck HCV AB <0.1 Normal 0.0-0.9 [facility] Comment on above: Performed By: #### P SASC, VITAD #### [facility] [address] [place] [address] Dr. Max Peck Hep A Ab, IgM Negative Normal Negative [facility] Comment on above: Performed By: #### P SASC, VITAD #### [facility] [address] [address] [address] Max Peck Hep B Core Ab, IgM Negative Normal Negative [facility] Comment on above: Performed By: #### P SASC, VITAD #### [facility] [address] [address] [address] Max Peck Interpretation: Comment Normal [facility] Comment on above: Result Comment: Nega tive Not infected with HCV, unless recent infection is suspected or other evidence exists to indicate HCV infection. Performed By: #### P SASC, VITAD #### [facility] [address] [address] [address] Max Peck INSULINon 12-29-2021 Insulin 15.1 uIU/mL Normal 2.6-24.9 [facility] Comment on above: Performed By: #### P SASC, VITAD #### [facility] [address] [address] [address] Max Peck TESTOSTERONE, TOTALon 2021 Testosterone [Mass/Vol] 766 ng/dL Normal 264-916 [facility] Comment on above: Result Comment: Adul t male reference interval is based on a population of healthy nonobese males (BMI <30) between 19 and 39 years old. Teddy et.al. JCEM 2017,102;8604-6362. PMID: [id number]. Performed By: #### P SASC, VITAD #### [facility] [address] [place] [address] Dr. Max Peck CBC AUTO DIFFon 12-28-2021 BASO # 0.0 103/ul Normal 0.0-0.1 [facility] Comment on above: Performed By: #### P SASC, VITAD #### [facility] [address] [place] [address] Dr. Max Peck Basophils/100 WBC (Bld) 0.4 % Normal 0.2-2.0 [facility] Comment on above: Performed By: #### P SASC, VITAD #### [facility] [address] [address] [address] Max Peck EO # 0.0 103/ul Normal 0.0-0.7 [facility] Comment on above: Performed By: #### P SASC, VITAD #### [facility] [address] [address] [address] Max Peck Eosinophils/100 WBC (Bld) 0.3 % Critically low 0.9-7.0 [facility] Comment on above: Performed By: #### P SASC, VITAD #### [facility] [address] [address] [address] Max Peck Erythrocyte distribution width (RBC) [Ratio] 12.5 % Normal 11.0-15.0 [facility] Comment on above: Performed By: #### P SASC, VITAD #### [facility] [address] [place] [address] Dr. Max Peck Hematocrit (Bld) [Volume fraction] 41.5 % Critically low 42.0-54.0 [facility] Comment on above: Performed By: #### P SASC, VITAD #### [facility] [address] [place] [address] Dr. Max Peck Hemoglobin (Bld) [Mass/Vol] 14.0 g/dL Normal 14.0-18.0 [facility] Comment on above: Performed By: #### P SASC, VITAD #### [facility] [address] [place] [address] Dr. Max Peck IG # 0.09 10e3/ul Critically high 0.00-0.[address] [facility] Comment on above: Performed By: #### P SASC, VITAD #### [facility] [address] [place] [address] Dr. Max Peck IG % 0.9 % Critically high 0.0-0.5 [facility] Comment on above: Performed By: #### P SASC, VITAD #### [facility] [address] [place] [address] Dr. Max Peck LYMPH # 2.6 103/ul Normal 1.2-3.8 [facility] Comment on above: Performed By: #### P SASC, VITAD #### [facility] [address] [place] [address] Dr. Max Peck Lymphocytes/100 WBC (Bld) 25.0 % Normal 20.5-60.0 [facility] Comment on above: Performed By: #### P SASC, VITAD #### [facility] [address] [place] [address] Dr. Max Peck MANUAL DIFF REQ NO Normal [facility] Comment on above: Performed By: #### P SASC, VITAD #### [facility] [address] [place] [address] Dr. Max Peck MCH (RBC) [Entitic mass] 32.6 pg Normal 25.9-34.0 [facility] Comment on above: Performed By: #### P SASC, VITAD #### [facility] [address] [place] [address] Dr. Max Peck MCHC (RBC) [Mass/Vol] 33.7 g/dL Normal 29.9-35.2 [facility] Comment on above: Performed By: #### P SASC, VITAD #### [facility] [address] [place] [address] Dr. Max Peck MCV (RBC) [Entitic vol] 96.7 fL Critically high 80.0-94.0 [facility] Comment on above: Performed By: #### P SASC, VITAD #### [facility] [address] [place] [address] Dr. Max Peck MONO # 1.2 103/ul Critically high 0.3-0.8 [facility] Comment on above: Performed By: #### P SASC, VITAD #### [facility] [address] [place] [address] Dr. Max Peck Monocytes/100 WBC (Bld) 11.1 % Normal 1.7-12.0 [facility] Comment on above: Performed By: #### P SASC, VITAD #### [facility] [address] [place] [address] Dr. Max Peck NEUT # 6.4 103/ul Normal 1.4-6.5 [facility] Comment on above: Performed By: #### P SASC, VITAD #### [facility] [address] [place] [address] Dr. Max Peck Neutrophils/100 WBC (Bld) 62.3 % Normal 43.0-75.0 [facility] Comment on above: Performed By: #### P SASC, VITAD #### [facility] [address] [place] [address] Dr. Max Peck Platelet mean volume (Bld) [Entitic vol] 9.6 fL Normal 9.5-13.5 [facility] Comment on above: Performed By: #### P SASC, VITAD #### [facility] [address] [place] [address] Dr. Max Peck PLT 323 103/ul Normal 150-450 [facility] Comment on above: Performed By: #### P SASC, VITAD #### [facility] [address] [address] [address] Max Peck RBC 4.29 106/ul Critically low 4.70-6.10 [facility] Comment on above: Performed By: #### P SASC, VITAD #### [facility] [address] [place] [address] Dr. Max Peck WBC 10.3 103/ul Normal 4.0-11.0 [facility] Comment on above: Performed By: #### P SASC, VITAD #### [facility] [address] [place] [address] Dr. Max Peck FREE THYROXINE INDEX T7on FTI 2.41 Normal 1.30-4.50 [facility] Comment on above: Performed By: #### T SH, URIC, T7, LIPID, CMP #### [facility] [address] [place] [address] Dr. Max Peck T3U 36.0 % Normal 33.0-40.0 [facility] Comment on above: Performed By: #### T SH, URIC, T7, LIPID, CMP #### [facility] [address] [address] [address] Max Peck T4 [Mass/Vol] 6.70 ug/dL Normal 4.50-12.10 [facility] Comment on above: Performed By: #### T SH, URIC, T7, LIPID, CMP #### [facility] [address] [address] [address] Max Peck GLYCOHEMOGLOBIN A1Con 2021 ADA RECOMMENDATION SEE BELOW Normal [facility] Comment on above: Result Comment: ADA RECOMMENDED LIMIT 4.0 - 6.0 ADA THERAPEUTIC TARGET < 7.0 ACTION SUGGESTED > 7.0 Performed By: #### P SASC, VITAD #### [facility] [address] [place] [address] Dr. Max Peck Glucose [Mass/Vol] 97 mg/dL Normal [facility] Comment on above: Performed By: #### P SASC, VITAD #### [facility] [address] [address] [address] Max Peck HbA1c (Bld) [Mass fraction] 5.0 % Normal 4.5-6.2 [facility] Comment on above: Performed By: #### P SASC, VITAD #### [facility] [address] [address] [address] Max Peck LIPID PROFILEon 12-28-2021 CHOL-HDL RATIO NORM SEE BELOW Normal [facility] Comment on above: Result Comment: 3.3 - 4.4 LOW RISK 4.4 - 7.1 AVERAGE RISK 7.1 - 11.0 MODERATE RISK >11.0 HIGH RISK Performed By: #### T SH, URIC, T7, LIPID, CMP #### [facility] [address] [address] [address] Max Peck Cholesterol [Mass/Vol] 221 mg/dL Critically high <=200 [facility] Comment on above: Performed By: #### T SH, URIC, T7, LIPID, CMP #### [facility] [address] [address] [address] Max Peck Cholesterol in HDL [Mass/Vol] 41 mg/dL Normal 40-60 [facility] Comment on above: Performed By: #### T SH, URIC, T7, LIPID, CMP #### [facility] [address] [address] [address] Max Peck Cholesterol in LDL [Mass/Vol] 157.2 mg/dL Normal [facility] Comment on above: Performed By: #### T SH, URIC, T7, LIPID, CMP #### [facility] [address] [address] [address] Max Peck Cholesterol.total/Cho lesterol in HDL [Mass ratio] 5.4 {ratio} Normal [facility] Comment on above: Performed By: #### T SH, URIC, T7, LIPID, CMP #### [facility] [address] [address] [address] Max Peck HDL NORMAL > or = 60 mg/dl - LO W CARDIOVASCULAR RISK <40 mg/dl - HIGH CARDIOVASCULAR RISK Normal [facility] Comment on above: Performed By: #### T SH, URIC, T7, LIPID, CMP #### [facility] [address] [address] [address] Max Peck LDL CALC NORMAL SEE BELOW Normal [facility] Comment on above: Result Comment: <100 mg/dl OPTIMAL 100 - 129 mg/dl NEAR OR ABOVE OPTIMAL 130 - 159 mg/dl BORDERLINE HIGH 160 - 189 mg/dl HIGH >190 mg/dl VERY HIGH Performed By: #### T SH, URIC, T7, LIPID, CMP #### [facility] [address] [address] [address] Max Peck Triglyceride [Mass/Vol] 114 mg/dL Normal <=150 [facility] Comment on above: Performed By: #### T SH, URIC, T7, LIPID, CMP #### [facility] [address] [address] [address] Max Peck VLDL CALC 22.8 mg/dL Normal [facility] Comment on above: Performed By: #### T SH, URIC, T7, LIPID, CMP #### [facility] [address] [address] [address] Max Peck PROF 14(COMP METB)on 022 Albumin [Mass/Vol] 3.9 g/dL Normal 3.4-5.0 [facility] Comment on above: Performed By: #### T SH, URIC, T7, LIPID, CMP #### [facility] [address] [address] [address] Max Peck Albumin/Globulin [Mass ratio] 1.3 {ratio} Normal [facility] Comment on above: Performed By: #### T SH, URIC, T7, LIPID, CMP #### [facility] [address] [address] [address] Max Peck ALP [Catalytic activity/Vol] 63 U/L Normal 46-116 [facility] Comment on above: Performed By: #### T SH, URIC, T7, LIPID, CMP #### [facility] [address] [address] [address] Max Peck ALT [Catalytic activity/Vol] 75 U/L Critically high 16-63 [facility] Comment on above: Performed By: #### T SH, URIC, T7, LIPID, CMP #### [facility] [address] [place] [address] Dr. Max Peck Anion gap [Moles/Vol] 8.8 mmol/L Normal [facility] Comment on above: Performed By: #### T SH, URIC, T7, LIPID, CMP #### [facility] [address] [place] [address] Dr. Max Peck AST [Catalytic activity/Vol] 41 U/L Critically high 15-37 [facility] Comment on above: Performed By: #### T SH, URIC, T7, LIPID, CMP #### [facility] [address] [place] [address] Dr. Max Peck Bilirubin [Mass/Vol] 0.8 mg/dL Normal 0.2-1.0 [facility] Comment on above: Performed By: #### T SH, URIC, T7, LIPID, CMP #### [facility] [address] [place] [address] Dr. Max Peck Calcium [Mass/Vol] 9.1 mg/dL Normal 8.5-10.1 [facility] Comment on above: Performed By: #### T SH, URIC, T7, LIPID, CMP #### [facility] [address] [place] [address] Dr. Max Peck Chloride [Moles/Vol] 102 mmol/L Normal 98-107 [facility] Comment on above: Performed By: #### T SH, URIC, T7, LIPID, CMP #### [facility] [address] [place] [address] Dr. Max Peck CO2 [Moles/Vol] 33.8 mmol/L Critically high 21.0-32.0 [facility] Comment on above: Performed By: #### T SH, URIC, T7, LIPID, CMP #### [facility] [address] [place] [address] Dr. Max Peck Creatinine [Mass/Vol] 0.80 mg/dL Normal 0.70-1.30 [facility] Comment on above: Performed By: #### T SH, URIC, T7, LIPID, CMP #### [facility] [address] [address] [address] Max Peck EGFR-AF MALTESE >60 Normal >=60 [facility] Comment on above: Performed By: #### T SH, URIC, T7, LIPID, CMP #### [facility] [address] [place] [address] Dr. Max Peck EGFR-NON AF MALTESE >60 Normal >=60 [facility] Comment on above: Performed By: #### T SH, URIC, T7, LIPID, CMP #### [facility] [address] [place] [address] Dr. Max Peck Globulin (S) [Mass/Vol] 2.9 g/dL Normal [facility] Comment on above: Performed By: #### T SH, URIC, T7, LIPID, CMP #### [facility] [address] [place] [address] Dr. Max Peck Glucose [Mass/Vol] 99 mg/dL Normal 74-106 [facility] Comment on above: Performed By: #### T SH, URIC, T7, LIPID, CMP #### [facility] [address] [address] [address] Max Peck Potassium [Moles/Vol] 3.6 mmol/L Normal 3.5-5.1 [facility] Comment on above: Performed By: #### T SH, URIC, T7, LIPID, CMP #### [facility] [address] [place] [address] Dr. Max Peck Protein [Mass/Vol] 6.8 g/dL Normal 6.4-8.[address] [facility] Comment on above: Performed By: #### T SH, URIC, T7, LIPID, CMP #### [facility] [address] [place] [address] Dr. Max Peck Sodium [Moles/Vol] 141 mmol/L Normal 136-145 [facility] Comment on above: Performed By: #### T SH, URIC, T7, LIPID, CMP #### [facility] [address] [place] [address] Dr. Max Peck Urea nitrogen [Mass/Vol] 16.0 mg/dL Normal 7.0-18.0 [facility] Comment on above: Performed By: #### T SH, URIC, T7, LIPID, CMP #### [facility] [address] [place] [address] Dr. Max Peck Urea nitrogen/Creatinine [Mass ratio] 20.0 mg/mg Normal [facility] Comment on above: Performed By: #### T SH, URIC, T7, LIPID, CMP #### [facility] [address] [place] [address] Dr. Max Peck TSHon 12-28-2021 TSH 1.544 uIU/mL Normal 0.358-3.740 [facility] Comment on above: Performed By: #### T SH, URIC, T7, LIPID, CMP #### [facility] [address] [place] [address] Dr. Max Peck URIC ACID SERUMon 12-28-2021 Urate [Mass/Vol] 5.4 mg/dL Normal 3.5-7.2 [facility] Comment on above: Performed By: #### T SH, URIC, T7, LIPID, CMP #### [facility] [address] [place] [address] Dr. Max Peck VITAMIN D 25 OHon 12-28-2021 VIT D 25-OH 51.2 ng/mL Normal [facility] Comment on above: Performed By: #### P HUGO, VITAD #### [facility] [address] [place] [address] Dr. Max Peck VIT D RANGES SEE BELOW Normal [facility] Comment on above: Result Comment: <20 ng/mL Vit D deficient 20 - <30 ng/mL Vit D insufficient 30 - 100 ng/mL Vit D sufficient >100 ng/mL Potential Toxicity Performed By: #### P SASC, VITAD #### [facility] [address] [place] [address] Dr. Max Peck Cardiovascular Lab Reporton 09-01-2020 Cardiovascular Lab Report [facility] Patient Name: Michael Braden [facility] MR #: [id number] Physician: Domenic Kohler MD Department of Service Date: 07/31/2020 Medicine Birthdate: 1955 Division of Room #: [facility] Adult Cardi[facility] Services [address] [place] [address] Cardiovascular Laboratory Report The patient is a [...] A Domenic Kohler MD Date Dict: 09/01/2020/10:26 A/Domenic Kohler MD Date Trans: 09/01/2020 10:51 A/sergio [id number] cc: Ester Cain M.D. [address] [facility] [id number] Normal [facility] LUMBAR SPINE 2 OR 3 VIEWSon 05-19-2019 LUMBAR SPINE 2 OR 3 VIEWS STUDY: LUMBAR SPINE 2 OR 3 VIEWS; 05/19/2019 9:49 am INDICATION: PAIN. COMPARISON: None. ACCESSION NUMBER(S): [id number] ORDERING CLINICIAN: Edgar Fairchild FINDINGS: No fracture or subluxation of the lumbar spine. L3-L5 laminectomy defects. Moderate to severe multilevel degenerative disc height loss with endplate sclerosis and osteophyte formation. Multilevel facet arthropathy. Moderate dextroscoliosis centered at L2. IMPRESSION: Severe degenerative changes of the lumbar spine. L3-L5 laminectomy defects. Normal [facility] Vital Signs Date Time Vital Sign Value Performing Clinician Faci lity 08-06-2023 09:43-0400 Body height 182.9 cm Pacc 1 Other Phone: [facility] 08-06-2023 09:43-0400 Body mass index (BMI) [Ratio] 26.43 kg/m2 Pacc 1 Other Phone: [facility] 08-06-2023 09:43-0400 Body temperature 98.1 [degF] Pacc 1 Other Phone: [facility] 08-06-2023 09:43-0400 Body weight 88.4 kg Pacc 1 Other Phone: [facility] 08-06-2023 09:43-0400 Diastolic blood pressure 69 mm[Hg] Pacc 1 Other Phone: [facility] 08-06-2023 09:43-0400 Heart rate 56 /min Pacc 1 Other Phone: [facility] 08-06-2023 09:43-0400 Respiratory rate 18 /min Pacc 1 Other Phone: [facility] 08-06-2023 09:43-0400 SaO2% (BldA) [Mass fraction] 100 % Pacc 1 Other Phone: [facility] 08-06-2023 09:43-0400 Systolic blood pressure 154 mm[Hg] Pacc 1 Other Phone: [facility] 04-30-2023 11:31-0500 Body height 182.9 cm Katherine Keith MD Work Phone: [facility] 04-30-2023 11:31-0500 Body weight 91.5 kg Katherine Keith MD Work Phone: [facility] 04-30-2023 11:31-0500 Diastolic blood pressure 69 mm[Hg] Katherine Keith MD Work Phone: [facility] 04-30-2023 11:31-0500 Heart rate 78 /min Katherine Keith MD Work Phone: [facility] 04-30-2023 11:31-0500 SaO2% (BldA) [Mass fraction] 96 % Katherine Keith MD Work Phone: [facility] 04-30-2023 11:31-0500 Systolic blood pressure 137 mm[Hg] Katherine Keith MD Work Phone: [facility] 10-30-2022 10:15-0400 Blood Pressure Location Shae Lue [facility] 10-30-2022 10:15-0400 Diastolic blood pressure 92 mm[Hg] Shae Lue [facility] 10-30-2022 10:15-0400 Heart rate 73 /min Shae Lue [facility] 10-30-2022 10:15-0400 Systolic blood pressure 145 mm[Hg] Shae Lue [facility] 10-28-2022 06:50-0400 Body height 182.88 cm MD Ester Cain Work Phone: [facility] 10-28-2022 06:50-0400 Body weight 83.91 kg MD Ester Cain Work Phone: [facility] 09-04-2022 07:45-0400 Blood Pressure Location Shae Lue [facility] 09-04-2022 07:45-0400 Diastolic blood pressure 98 mm[Hg] Shae Lue [facility] 09-04-2022 07:45-0400 Heart rate 51 /min Shae Lue [facility] 09-04-2022 07:45-0400 Respiratory rate 16 /min Shae Lue [facility] 09-04-2022 07:45-0400 Systolic blood pressure 175 mm[Hg] Shae Guillory [facility] 04-03-2022 15:00-0500 Blood Pressure Location Camryn NILL [facility] 04-03-2022 15:00-0500 Diastolic blood pressure 96 mm[Hg] Camryn NILL [facility] 04-03-2022 15:00-0500 Heart rate 80 /min Camryn NILL [facility] 04-03-2022 15:00-0500 Respiratory rate 16 /min Camryn NILL [facility] 04-03-2022 15:00-0500 Systolic blood pressure 144 mm[Hg] Camryn NILL [facility] Encounters Encounter Date Encounter Type Care Provider Facility Start: 10-15-2023 Refill Alfonso Loyd PA-C Work Phone: [facility] Comment on above: Refill Request Start: 10-09-2023 [facility] Get Medical Advice Katherine Keith MD Work Phone: [facility] Comment on above: Script refills Start: 10-02-2023 End: 10-04-2023 Evaluation and management of inpatient KATHERINE KEITH Facility:[facility] Start: 09-30-2023 Telephone encounter Julianne (Rsr [facility] Comment on above: Research Start: 09-30-2023 End: 09-30-2023 Nursing evaluation of patient and report Wellington aCstaneda RN [facility] Comment on above: S/P lumbar spinal fu grace (Primary Dx) Start: 09-30-2023 End: 09-30-2023 ambulatory ESTER CAIN Facility:[facility] Start: 09-24-2023 Telephone encounter Angelina MCKEON [facility] Comment on above: CARE CONTINUUM ADVIS OR ASSESSMENT Start: 09-18-2023 End: 09-18-2023 Refill Stephane Fair PA-C Work Phone: [facility] Comment on above: Refill Request Start: 09-17-2023 ambulatory Katherine Keith MD Work Phone: [facility] Start: 09-17-2023 Patient encounter status Margarette Keith MD Work Phone: [facility] Start: 09-16-2023 ambulatory Katherine Keith MD Work Phone: [facility] Comment on above: Legs swelling Start: 09-16-2023 Telephone encounter Katherine wright MD Work Phone: Neurology Comment on above: Patient Update Start: 09-15-2023 MC Get Medical Advice Katherine Keith MD Work Phone: [facility] Comment on above: Med refill Start: 09-11-2023 ambulatory Katherine Keith MD Work Phone: [facility] Comment on above: Meds at home discuss ion Start: 09-09-2023 ambulatory Alfonso Bonus PA-C Work Phone: [facility] Comment on above: Phyo Ruymilly Braden Rodriguez Start: 09-09-2023 Follow-up encounter Katherine wright MD Work Phone: [facility] Comment on above: Surgery followup Start: 09-07-2023 End: 09-10-2023 Evaluation and management of inpatient ESTER CAIN Facility:[facility] Start: 09-05-2023 Refill Alfonsovitaliy Haqus PA-C Work Phone: Medical Records Comment on above: Refill Request Start: 09-04-2023 Telephone encounter Katherine wright MD Work Phone: Neurology Comment on above: Patient Update Start: 09-02-2023 Refill Alfonso Bonus PA-C Work Phone: [facility] Comment on above: Refill Request Med refill Start: 09-01-2023 Admission to [facility] Katherine Keith MD Work Phone: [facility] Comment on above: 08/19/23 surgery Start: 09-01-2023 ambulatory Katherine Keith MD Work Phone: [facility] Start: 08-29-2023 Telephone encounter Katherine wright MD Work Phone: Neurology Comment on above: Medication Problem Start: 08-29-2023 End: 08-29-2023 ambulatory Alfonso Loyd [facility] Work Phone: [facility] Comment on above: Acute post-operative pain Start: 08-29-2023 End: 08-29-2023 Telemedicine consultation with patient Alfonso Loyd [facility] Work Phone: [facility] Start: 08-22-2023 End: 08-22-2023 Evaluation and management of inpatient ESTER CAIN Facility:[facility] Start: 08-19-2023 End: 08-22-2023 Evaluation and management of inpatient KATHERINE SAGAR Facility:[facility] Start: 08-12-2023 End: 08-12-2023 ambulatory ESTER M ANT Facility:[facility] Start: 08-11-2023 Telephone encounter Angelina Hackett [facility] Comment on above: Follow Up Start: 08-10-2023 ambulatory Sharif Veras RN [facility] [place] [id number] Comment on above: Blood Management Start: 08-06-2023 End: 08-06-2023 ambulatory ALFONSO LOYD Facility:[facility] Start: 08-06-2023 Encounter for other preprocedural examination KATHERINE SAGAR [facility] Start: 08-06-2023 End: 08-06-2023 Admission to establishment [address] [address] Other Phone: Pre Anesthesia Start: 08-06-2023 End: 08-06-2023 Patient encounter procedure Pacc [address] Other Phone: Pre Anesthesia Comment on above: Pre-op exam (Primary Dx); Primary hypertension; SVT (supraventricular tachycardia) (HCC); History of penicillin allergy Start: 08-06-2023 End: 08-06-2023 Preprocedural examination done [address]acc [address] Other Phone: [facility] Work Phone: Start: 08-06-2023 End: 08-06-2023 ambulatory KATHERINE KEITH Facility:[facility] Start: 08-06-2023 Encounter for other preprocedural examination KATHERINE KEITH [facility] Start: 08-01-2023 Admission to [facility] Katherine Keith MD Work Phone: [facility] Comment on above: Sooner Surgery Date Start: 08-01-2023 ambulatory Katherine Keith MD Work Phone: [facility] Start: 08-01-2023 Telephone encounter Katherine wright MD Work Phone: [facility] Comment on above: Patient Update Start: 07-30-2023 End: 07-30-2023 ambulatory ESTER CAIN Facility:[facility] Start: 07-14-2023 Telephone encounter Katherine wright MD Work Phone: [facility] Comment on above: Forms Start: 07-11-2023 ambulatory Katherine Keith MD Work Phone: [facility] Start: 07-11-2023 Patient encounter status Margarette Keith MD Work Phone: [facility] Start: 06-22-2023 Admission to [facility] Katherine Keith MD Work Phone: [facility] Comment on above: Surgery date Start: 06-22-2023 ambulatory Katherine Keith MD Work Phone: [facility] Start: 06-11-2023 ambulatory Katherine Keith MD Work Phone: [facility] Start: 06-11-2023 Documentation procedure Mark Keith MD Work Phone: [facility] Comment on above: LTD Documents Start: 06-11-2023 Telephone encounter Katherine wright MD Work Phone: [facility] Comment on above: Forms Start: 05-29-2023 Telephone encounter Katherine wright MD Work Phone: [facility] Comment on above: Schedule Surgery Start: 05-28-2023 [facility] Katherine Keith MD Work Phone: [facility] Comment on above: Surgery date Start: 05-28-2023 ambulatory Katherine Keith MD Work Phone: [facility] Start: 05-23-2023 Admission to [facility] Katherine Keith MD Work Phone: [facility] Comment on above: Surgery date Start: 05-23-2023 ambulatory Katherine Keith MD Work Phone: [facility] Start: 05-19-2023 Admission to [facility] Katherine Keith MD Work Phone: [facility] Comment on above: Surgery schedule Start: 05-19-2023 ambulatory Katherine Keith MD Work Phone: [facility] Start: 05-13-2023 End: 05-13-[address] [facility] Facility:[facility] Start: 05-04-[address] [facility] Facility: [facility] Start: 05-04-2023 End: 05-04-2023 Subsequent hospital visit by physician Otilia [facility] ([facility]) Work Phone: [facility] Radiology CT Scan Comment on above: Chronic low back simba n, unspecified back pain laterality, unspecified whether sciatica present [M54.50, G89.29] Start: 04-30-2023 End: 04-30-2023 ambulatory [facility] Facility:[facility] Start: 04-30-2023 End: 04-30-2023 Subsequent hospital visit by physician [facility] Radiology Comment on above: History of lumbar la minectomy for spinal cord decompression [Z98.890] Start: 04-30-2023 End: 04-30-2023 Patient encounter procedure Katherine Keith MD Work Phone: [facility] Comment on above: History of lumbar la minectomy for spinal cord decompression (Primary Dx); Degenerative scoliosis in adult patient; Chronic low back pain, unspecified back pain laterality, unspecified whether sciatica present Start: 04-30-2023 End: 04-30-2023 ambulatory ESTER CAIN Facility:[facility] Start: 04-30-2023 End: 04-30-2023 Subsequent hospital visit by physician Vaishnavi Ochoa J1-4 Work Phone: Radiology Comment on above: Spinal stenosis, lum bar region with neurogenic claudication [M48.062] Start: 04-23-2023 ambulatory Shae NigelMauri Guillory Facility:[facility] Start: 03-19-2023 Chart abstracting Katherine landaverde MD Work Phone: Neurology Start: 01-08-2023 ambulatory Shae NigelMauri Guillory Facility:[facility] Start: 12-05-2022 End: 12-06-2022 ambulatory Shaejon Guillory Facility:[facility] Start: 12-05-2022 End: 12-05-2022 Patient encounter procedure Shae MMauri Sanchezdanuta [facility] Umer Start: 11-27-2022 End: 11-28-2022 ambulatory Shae Guillory Facility:[id number] Start: 10-30-2022 End: 10-31-2022 ambulatory Shae Guillory Facility:[facility] Start: 10-30-2022 End: 10-30-2022 Patient encounter procedure Shae MMauri Kahlil [facility] Javed Start: 10-28-2022 End: 10-28-2022 ambulatory Ester Cain Facility:[facility] Start: 10-28-2022 End: 10-28-2022 ambulatory MD Ester Cain Work Phone: [facility] Work Phone: Start: 10-28-2022 End: 10-28-2022 Patient encounter procedure MD Ester Cain Work Phone: [facility] [place] Work Phone: Start: 09-24-2022 ambulatory Camryn R NILL Facility :[facility] Start: 09-04-2022 End: 09-05-2022 ambulatory Shae Guillory Facility:[facility] Start: 09-04-2022 End: 09-04-2022 Patient encounter procedure Shae Guillory [facility] Start: 08-26-2022 ambulatory Camryn NILL Facility:[facility] Start: 08-16-2022 End: 08-17-2022 ambulatory Camryn R NILL Facility:[facility] Start: 05-21-2022 End: 05-21-2022 Patient encounter procedure Camryn R NILL General Surgery Nill/Said Javed Start: 05-07-2022 End: 05-08-2022 ambulatory Camryn R NILL Facility:[facility] Start: 05-07-2022 End: 05-07-2022 Patient encounter procedure Camryn R NILL General Surgery Nill/Said Javed Start: 04-29-2022 End: 04-29-2022 ambulatory Camryn R NILL Facility:[facility] Start: 04-22-2022 End: 04-23-[address] Ester Cain Facility:[id number] Start: 04-19-2022 End: 04-20-2022 ambulatory Camryn R NILL Facility:[facility] Start: 04-14-2022 Encounter for preprocedural laboratory examination DR CAMRYN AGUSTIN . [facility] Start: 04-11-2022 End: 04-12-2022 Encounter for preprocedural laboratory examination DR WILTON NICHOLE Facility:[facility] Start: 04-11-2022 End: 04-12-[address] WILTON NICHOLE Facility:[facility] Start: 04-03-2022 End: 04-04-2022 ambulatory Camryn Rodriguez NILLew Facility:[facility] Start: 04-03-2022 End: 04-03-2022 Patient encounter procedure Camryn AGUSTIN General Surgery Nill/[facility] Start: 03-16-2022 End: 03-16-2022 [facility] Start: 03-06-2022 End: 03-07-[address] ESTER CAIN . Facility:[facility] Start: 01-18-2022 End: 01-19-[address] ESTER CAIN . Facility: Start: 01-02-2022 Encounter for genera l adult medical examination without abnormal findings DR ESTER CAIN . [facility] Start: 01-01-2022 End: 01-02-[address] ESTER CAIN . Facility: Start: 12-28-2021 End: 12-29-[address] ESTER CAIN . Facility:[facility] Start: 12-28-2021 End: 12-29-2021 Encounter for general adult medical examination without abnormal findings DR ESTER CAIN . Facility: Start: 07-31-2020 End: 08-01-2020 ambulatory ESTER CAIN Facility:[facility] Procedures Date Procedure Procedure Detail Performing Clinician Start: 10-02-2023 Antibody screen ESTER CAIN Comment on above: Order Comment: Speci men Type: BLOOD SPECIMENOrdering Facility: [facility] Address: [address] [place] [address] Performed By: #### T SCR ####CC MAIN BLOOD BANKCLIA [id number] [place] [id number] [id number] [facility] Start: 08-06-2023 Antibody screen KATHERINE KEITH Comment on above: Order Comment: Speci men Type: BLOOD SPECIMEN [facility]ing [facility]: [facility] Address: [address] [place] [address] Performed By: #### T SCR30 #### [facility] CLIA [id number] [address] [place] [address] [place] Start: 08-06-2023 Ecg routine ecg w/le ast 12 lds i&r only Sanam Gill PA-C Work Phone: Start: 05-04-2023 Ct lumbar spine [...] Performed By: #### P SASC, VITAD #### [facility] [address] [place] [address] Dr. Max Peck Start: 03-10-2012 Back structure, excl uding neck (body structure) Camryn AGUSTIN Start: 03-10-1999 Back structure, excl uding neck (body structure) Camryn AGUSTIN Start: 03-10-1993 Cholecystectomy Camryn AGUSTIN Excision of lesion of skin Nigel pineda VAMSI Comment on above: presybeterian and shave les on left neck History of excision of lamina of lumbar vertebra for decompression of spinal cord History of lumbar laminectomy for spinal cord decompression Xr A21 History of excision of lamina of lumbar vertebra for decompression of spinal cord History of lumbar laminectomy for spinal cord decompression Katherine Keith MD Work Phone: Laminectomy Camryn AGUSTIN Comment on above: x 3-- 2019, 2012, 20 00 Plan of Treatment Date Care Activity Detail Author Start: 12-28-2026 Prostate specific an tigen measurement Prostate Cancer Screening Discussion [facility] Start: 10-03-2026 Diabetes Screening Diabetes Screenin g [facility] Start: 09-09-2026 Diabetes Screening Diabetes Screenin g [facility] Start: 09-06-2026 Diabetes Screening Diabetes Screenin g [facility] Start: 08-21-2026 Diabetes Screening Diabetes Screenin g [facility] Start: 08-05-2026 Diabetes Screening Diabetes Screenin g [facility] Start: 11-12-2023 End: 11-12-2023 Patient encounter procedure 11/12/2023 2:20 PM EDT Office Visit [facility] [address] [place] [id number] Katherine Keith MD [address] [place] [address] post op in person [facility] Comment on above: post op in person Start: 11-12-2023 End: 11-12-2023 Patient encounter procedure 11/12/2023 1:10 PM EDT Appointment Radiology [address] [place] [phone] post op lumbar Radiology Comment on above: post op lumbar Start: 11-09-2023 [facility] Start: 10-21-2023 End: 10-21-2023 ambulatory 10/21/2023 8:50 AM EDT [facility] [address] [place] [id number] Alfonso Loyd PA-C [address] [place], [place] [id number] [facility] Postop [facility] Comment on above: MYC Postop Start: 10-14-2023 End: 10-14-2023 Patient encounter procedure Radiology Comment on above: post op lumbar post op in person Start: 10-08-2023 End: 10-08-2023 Patient encounter procedure 10/08/2023 12:40 PM EDT Office Visit [facility] [address] [place] [phone] Katherine Keith MD [address] [place] [address] post op in person [facility] Comment on above: post op in person Start: 10-08-2023 End: 10-08-2023 Patient encounter procedure 10/08/2023 11:30 AM EDT Appointment Radiology [address] [place] [address] post op lumbar Radiology Comment on above: post op lumbar Start: 10-02-2023 End: 10-02-2023 Admission to same day surgery center Admitting Comment on above: EXPLORATION OF SPINA L FUSION Start: 10-02-2023 End: 10-02-2023 Exploration spinal fusion [facility] Start: 10-02-2023 End: 10-02-2023 Celaya facetectomy & foramotomy 1 segment lumbar [facility] Start: 10-02-2023 End: 10-02-2023 Celaya facetectomy&foramtomy 1 sgm ea crv thrc/lmbr [facility] Start: 10-02-2023 End: 10-02-2023 Posterior segmental instrumentation 3-6 vrt seg [facility] Start: 10-02-2023 Subsequent hospital visit by physician Admitting Comment on above: S/P lumbar spinal fu grace [Z98.1] Start: 09-30-2023 End: 09-30-2023 Nursing evaluation of patient and report 09/30/2023 10:00 AM EDT Nurse Visit [facility] [address] [place] [address] Wellington Castaneda, RN Phone Education [facility] Comment on above: Phone Education Start: 09-18-2023 End: 09-18-2023 Patient encounter procedure 09/18/2023 2:00 PM EDT Office Visit [facility] Phone Screening [place] [phone] Hillary [facility] Phone Screening Comment on above: Hillary Start: 09-17-2023 End: 12-17-2023 STAPHYLOCOCCUS AUREUS & MRSA SCREEN, PCR, NASAL STAPHYLOCOCCUS AUREUS & MRSA SCREEN, PCR, NASAL Lab Routine S/P lumbar spinal fusion Pre-op testing Expected: 09/17/2023, Expires: 12/17/2023 [facility] Work Phone: Comment on above: Expected: 09/17/2023 , Expires: 12/17/2023 Start: 09-16-2023 End: 09-16-2023 ambulatory 09/16/2023 10:10 AM EDT [facility] [address] [place] [address] Alfonso Loyd PA-C [address] [place] [address] 2 week post op( virtual visit) [facility] Comment on above: 2 week post op( virt ual visit) Start: 09-02-2023 End: 09-02-2023 Admission to same day surgery center 09/02/2023 7:30 AM EDT - 09/02/2023 2:00 PM EDT Surgery Admitting [address] [place] [address] Katherine Keith MD [address] [place] [address] LAT LUMBAR SPINE FUSION Admitting Comment on [...] 7:30 AM EDT Hospital Encounter Admitting [address] [place] [address] Katherine Keith MD [address] [place] [address] History of laminectomy [Z98.890] Admitting Comment on above: History of laminecto my [Z98.890] Start: 08-29-2023 End: 08-29-2023 ambulatory 08/29/2023 8:30 AM EDT [facility] [address] [place] [address] Alfonso Loyd PA-C [address] [place] [address] 2 week post op( virtual visit) [facility] Comment on above: 2 week post op( virt ual visit) Start: 08-28-2023 End: 08-28-2023 ambulatory 08/28/2023 10:00 AM EDT [facility] Patient Outreach [facility] [address] [place] [address] Provider, Nurse Adolfo Keating [address] [place] [address] Nurse KEATING [facility] Comment on above: Nurse KEATING Start: 08-19-2023 End: 08-19-2023 Admission to same day surgery center 08/19/2023 7:30 AM EDT - 08/19/2023 2:00 PM EDT Surgery Admitting [address] [place] [address] Katherine Keith MD [address] [place] [address] LAT LUMBAR SPINE FUSION Admitting Comment on [...] 7:30 AM EDT Hospital Encounter Admitting [address] [place] [address] Katherine Keith MD [address] [place] [address] History of laminectomy [Z98.890] Admitting Comment on above: History of laminecto my [Z98.890] Start: 08-12-2023 End: 08-12-2023 ambulatory 08/12/2023 2:00 PM EDT [facility] Patient Outreach [facility] [address] [place] [address] Provider, Nurse Adolfo Keating [address] [place] [address] Nurse KEATING [facility] Comment on above: Nurse KEATING Start: 08-11-2023 End: 11-10-2023 CBC W Auto Differential panel - Blood COMPLETE BLOOD COUNT AND DIFFERENTIAL Lab Routine History of laminectomy Degenerative scoliosis in adult patient Pre-op testing Iron deficiency anemia, unspecified iron deficiency anemia type Expected: 08/11/2023 (Approximate), Expires: 11/10/2023 [facility] Comment on above: Expected: 08/11/2023 (Approximate), Expires: 11/10/2023 Start: 08-11-2023 End: 11-10-2023 Ferritin [Mass/volume] in Serum or Plasma FERRITIN Lab Routine History of laminectomy Degenerative scoliosis in adult patient Pre-op testing Iron deficiency anemia, unspecified iron deficiency anemia type Expected: 08/11/2023 (Approximate), Expires: 11/10/2023 [facility] Comment on above: Expected: 08/11/2023 (Approximate), Expires: 11/10/2023 Start: 08-11-2023 End: 11-10-2023 Iron and Iron binding capacity panel - Serum or Plasma IRON AND TIBC Lab Routine History of laminectomy Degenerative scoliosis in adult patient Pre-op testing Iron deficiency anemia, unspecified iron deficiency anemia type Expected: 08/11/2023 (Approximate), Expires: 11/10/2023 [facility] Work Phone: Comment on above: Expected: 08/11/2023 (Approximate), Expires: 11/10/2023 Start: 08-11-2023 End: 11-10-2023 STAPHYLOCOCCUS AUREUS & MRSA SCREEN, PCR, NASAL STAPHYLOCOCCUS AUREUS & MRSA SCREEN, PCR, NASAL Lab Routine History of laminectomy Degenerative scoliosis in adult patient Pre-op testing Expected: 08/11/2023 (Approximate), Expires: 11/10/2023 [facility] Comment on above: Expected: 08/11/2023 (Approximate), Expires: 11/10/2023 Start: 08-06-2023 End: 08-06-2023 Patient encounter procedure Pre Anesthesia Comment on above: pre op pre op labs Start: 07-30-2023 End: 07-30-2023 Patient encounter procedure 07/30/2023 10:30 AM EDT Office [place] [phone] pre op gc [facility] Phone Screening Comment on above: pre op gc Start: 03-10-2023 Advance Directive Discussion Advance Directive Discussion [facility] Start: 03-10-2023 Behavioral Health Screening Behavioral Health Screening [facility] Start: 03-10-2023 Depression Assessment Depression Ass essment [facility] Start: 11-08-2022 Covid-19 Vaccine ( season) Covid-19 Vaccine ( season) [facility] Start: 11-08-2022 Influenza vaccination Influenza Vacc ine (#1) [facility] Start: 2022 Pneumococcal Vaccine : 65+ (1 of 1 - PCV) Pneumococcal Vaccine: 65+ (1 of 1 - PCV) [facility] Start: 2017 RSV Vaccine (1 - 1-d ose 60+ series) RSV Vaccine (1 - 1-dose 60+ series) [facility] Start: 2012 Prostate specific an tigen measurement Prostate Cancer Screening Discussion [facility] Start: 2007 Shingrix Vaccine (1 of 2) Mckinney grix Vaccine (1 of 2) [facility] Start: 2002 Diabetes Screening Diabetes Screenin g [facility] Start: 2002 Screening for malign ant neoplasm of colon [facility] Start: 1992 Lipid panel Lipid Screening [facility] Start: 1976 Urine microalbumin profile DTaP,Tdap,Td Vaccine (1 - Tdap) [facility] Start: 1975 Annual PCP Team Learning Support Teacher mars Disease Visit Annual PCP Team Chronic Disease Visit [facility] Start: 1975 Anxiety Screening Anxiety Screening [facility] Start: 1975 BP Controlled (<130/80) BP Controlle d (<130/80) [facility] Start: 1975 Depression Screening Depression Scre ening [facility] Start: 1975 Hepatitis C screening Hepatitis C Sc irasema [facility] Start: 1957 Covid-19 Vaccine (#1) Covid-19 Vacci ne (#1) [facility] ECG COMPLETE ECG COMPLETE ECG Routine Pre-op exam 08/06/2023 8:48 AM EDT [facility] Work Phone: End: 04-30-2024 EMG(NEURO/NI) EMG(NEURO/NI) EMG Routine History of lumbar laminectomy for spinal cord decompression Degenerative scoliosis in adult patient Chronic low back pain, unspecified back pain laterality, unspecified whether sciatica present 1 Occurrences starting 04/30/2023 until 04/30/2024 [facility] Work Phone: Comment on above: 1 Occurrences starti ng 04/30/2023 until 04/30/2024 End: 04-19-2024 Radex spine lumbosacral minimum 4 views XR LUMBAR MOTION 4V AP/LAT/ FLEX/EXT Radiology Routine Spinal stenosis, lumbar region with neurogenic claudication 1 Occurrences starting 03/21/2023 until 04/19/2024 [facility] Work Phone: Comment on above: 1 Occurrences starti ng 03/21/2023 until 04/19/2024 End: 08-10-2024 XR Lumbar spine AP and Lateral XR LUMBAR LIMITED 2V AP/LAT Radiology Routine History of laminectomy Degenerative scoliosis in adult patient 1 Occurrences starting 07/11/2023 until 08/10/2024 [facility] Comment on above: 1 Occurrences starti ng 07/11/2023 until 08/10/2024 [facility] Immunizations Immunization Date Immunization Notes Care Provider [facility] 12-29-2020 influenza virus vaccine, unspecified formulation Shae Kahlil [facility] 12-29-2020 SARS-CoV-2 (COVID-19 ) mRNA BNT-162b2 vax Camryn NILL [facility] 06-09-2020 SARS-CoV-2 (COVID-19 ) mRNA BNT-162b2 vax Camryn NILL [facility] 05-19-2020 SARS-CoV-2 (COVID-19 ) mRNA BNT-162b2 vax Camryn NILL [facility] Comment on above: Result Comment: 2022: [id number] NEGATED: Highlighted row has not occurred!04-03-2022 influenza virus vaccine, unspecified formulation Camryn NILL [facility] NEGATED: Highlighted row has not occurred!05-27-2019 influenza virus vaccine, live, attenuated, for intranasal use Camryn AGUSTIN [facility] Payers Date Payer Category Payer Self-pay 2015 Private Health Insurance [facility] [employer] [id number] 2015-Present [phone] [address] [address] [place] [address] HMO [id number] 1959 Private Health Insurance [id number] 1957 Unknown [id number] 2.16.840.1.756224.3.579.2 .647 1957 Unknown [id number] 2.16.840.1.568284.3.579.2 .356 1957 Unknown [id number] 2.16.840.1.922263.3.579.2 .593 1957 Unknown [id number] 2.16.840.1.441124.3.579.2 .593 1957 Unknown [id number] 2.16.840.1.473327.3.579.2 .593 1957 Unknown [id number] 2.16.840.1.361619.3.579.2 .593 1957 Unknown [id number] 2.16.840.1.181533.3.579.2 .593 1957 Unknown [id number] 2.16.840.1.364598.3.579.2 .593 1957 Unknown [id number] 2.16.840.1.184840.3.579.2 .593 1957 Unknown [id number] 2.16.840.1.060757.3.579.2 .727 1957 Unknown [id number] 2.16.840.1.873940.3.579.2 .727 1957 Unknown [id number] 2.16.840.1.440747.3.579.2 .727 1957 Unknown [id number] 2.16.840.1.271621.3.579.2 .727 1957 Unknown [id number] 2.16.840.1.447764.3.579.2 .727 1957 Unknown [id number] 2.16.840.1.559862.3.579.2 .727 1957 Unknown [id number] 2.16.840.1.670659.3.579.2 .7 1957 Unknown [id number] 2.16.840.1.383195.3.579.2 .727 1957 Unknown [id number] 2.16.840.1.483603.3.579.2 .7 1957 Unknown [id number] 2.16.840.1.274817.3.579.2 .727 1957 Unknown [id number] 2.16.840.1.219366.3.579.2 .7 1957 Unknown [id number] 2.16.840.1.387285.3.579.2 .727 1957 Unknown [id number] 2.16.840.1.268690.3.579.2 .72 Unknown Regular Insurance [id number] Unknown [id number] 2.16.840.1.236336.3.579.2 .531 Social History Date Type Detail Facility Start: 04-03-2022 End: 04-30-2023 Tobacco smoking status Never smoked tobacco (finding) [facility] Tobacco smoking status Never [facility] Start: 04-30-2023 End: 08-06-2023 Sex Assigned At Male [facility] Start: 1955 Sex Assigned At Male [facility] Start: 09-12-2008 End: 04-30-2023 Alcohol intake Not Asked [facility] Start: 03-20-2023 Gender identity Identifies as male gender (finding) [facility] Start: 03-20-2023 Sexual orientation Heterosexual (prashanth membreno) [facility] Start: 04-30-2023 Tobacco use and exposure Former smokeless tobacco user [facility] End: 03-10-1999 History of tobacco use Chews Tobacco [facility] Start: 04-30-2023 End: 08-06-2023 History of Social function [facility] Start: 08-06-2023 Alcohol intake Lifetime non-d holger (finding) [facility] Has the [employer], oil, or water company threatened to shut off services in your home in past 12Mo No [facility] (I/We) worried miranda er (my/our) food would run out before (I/we) got money to buy more. Never true [facility] Medical Equipment Procedure Code Equipment Code Equipment Origin al Text Equipment Identifier Dates Signify Gel Instafill Cartridge 5cc [id number] Start: 08-19-2023 Creo Mis Locking Cap [id number] Sta rt: 08-19-2023 Graft Infuse 20g a Medium Bovine Collagen Rhbmp-2 2x1in Bone Vial Absorbable - [id number] Start: 08-19-2023 Signify Gel Instafill Cartridge 5cc [id number] Start: 08-19-2023 Creo Mis 5.5mm Curved Crystal Ti Alloy 10cm [id number] Start: 08-19-2023 Creo Mis 5.5mm Curved Crystal Ti Alloy 11cm [id number] Start: 08-19-2023 5.0x45 [id number] Start: 08-19-2023 Creo One Robotic Modular Screw 6.5mm X 50mm [id number] Start: 08-19-2023 Creo One Robotic Modular Screw 6.5mm X 55mm [id number] Start: 08-19-2023 4.5x45 [id number] Start: 08-19-2023 Spacer Rise-L 3d Lordotic [id number] Spinal Nonsterile [id number] Start: 08-19-2023 Spacer Rise-L 3d Lordotic [id number] Spinal Nonsterile [id number] Start: 08-19-2023 Functional Status Date Assessment Result Facility 12-05-2022 Functional Status N/A [facility] 10-30-2022 Functional Status N/A [facility] 09-04-2022 Functional Status No [facility] 04-03-2022 Functional Status N/A General [facility] Clinical Notes 04-03-2022 to 10-09-2023 Addendum Note - Alfonso Loyd PA-C - 10/09/2023 3:44 PM EDTAddendum Note - Alfonso Loyd PA-C - 10/09/2023 3:44 PM EDTTelephone Encounter - RadhaJulainne - 09/30/2023 3:28 PM EDT Note Date & Type Note Facility 10-09-2023 Note Addended by: ALFONSO LOYD on: 10/09/2023 03:44 PM Modules accepted: Orders [facility] 10-09-2023 Miscellaneous Notes Addended by: ALFONSO LOYD on: 10/09/2023 03:44 PM Modules accepted: Orders documented in this encounter [facility] 10-04-2023 Note HNO ID: [id number] Author: MANUEL VERA ? Service: Pharmacy Author Type: Drawbench Operator Helper Type: Plan of Care Filed: 10/04/2023 14:27 Note Text: PHARMACY BEDSIDE DELIVERY SERVICE Patient Name: Braden Rodriguez The marked outpatient medications were Filled at: [facility] and delivered to the patient's bedside to patient Medication List CHANGE how you take these medications acetaminophen 325 mg tablet Commonly known as: TYLENOL 2 tablets by ORAL/FEEDING TUBE route every 6 hours as needed for pain. What changed: when to take this reasons to take this carvedilol 25 mg tablet Commonly known as: COREG Take 1 tablet by mouth two times a day with meals. What changed: medication strength how much to take MEDICATION: REFILL TOO SOON oxyCODONE IR 5 mg immediate release tablet Commonly known as: ROXICODONE Take 1-2 tablets by mouth every 6 hours as needed for up to 7 days. What changed: medication strength how much to take when to take this reasons to take this MEDICATION: DELIVERED CONTINUE taking these medications diclofenac 1 % topical gel Commonly known as: VOLTAREN ARTHRITIS PAIN Apply 2 g to affected area two times a day. gabapentin 300 mg capsule Commonly known as: NEURONTIN Take 1 capsule by mouth every 8 hours for 30 days. LASIX 40 mg tablet Generic drug: furosemide lidocaine 5 % Commonly known as: LIDODERM Take as instructed on package senna-docusate 8.6-50 mg per tablet Commonly known as: SENNA-S Take 2 tablets by mouth two times a day. tiZANidine 2 mg tablet Commonly known as: ZANAFLEX Take 3 tablets by mouth every 8 hours. You might also be taking other medications not listed above. If you have questions about any of your other medications, talk to the person who prescribed them or your Primary Care Provider. Manuel Vera PAGER: [phone] October 04, 2023 12:09 PM [facility] 10-04-2023 Note HNO ID: [id number] Author: MANUEL VERA ? Service: Pharmacy Author Type: Drawbench Operator Helper Type: Plan of Care Filed: 10/04/2023 12:09 Note Text: Insurance investigation completed Patient has active prescription insurance: Yes - Patient's insurance is in-network with [facility] Insurance loaded into [employer]: Yes Test claim was completed to verify insurance is active: Successful Any questions, please contact your medication identity access management architect. Pager #: [phone] [facility] 10-04-2023 Note HNO ID: [id number] Author: HUI WHYTE MD Service: Neurosurgery Author Type: Fellow Type: Progress Notes Filed: 10/04/2023 11:43 Note Text: ORTHOPAEDIC SURGERY SPINE PROGRESS NOTE PATIENT NAME: Braden Rodriguez Attending: Katherine Hogue MD Hospital Day: 1 Date of Surgery: 10/02/2023 2 Days Post-Op Assessment: 68 year old yo male s/p right L4/5 facetectomy on above date. Plan: - Activity: WBAT, no heavy bending lifting or twisting - Antibiotics x 24 hrs periop complete - Pain - PO and IV breakthrough - DVT prophylaxis - SCDs, SQH BID starting POD2 - Acute blood loss anemia: H/H stable, no indication for transfusion at this time - PT/OT, appreciate recs for discharge Dispo: home today Subjective: Doing well today. Pre op pain is gone. Has appropriate post operative incisional pain. Denies chest pain, SOB, N/V. Tolerating regular diet and voiding independently. VITALS: 10/03/23 2148 10/04/23 0134 10/04/23 0647 10/04/23 0915 BP: 141/72 113/50 93/50 109/65 Pulse: 66 67 (!) 56 (!) 58 Resp: 18 18 18 17 Temp: 36.9 ?C (98.4 ?F) 37 ?C (98.6 ?F) 36.4 ?C (97.5 ?F) 36.5 ?C (97.7 ?F) TempSrc: Oral Oral Oral Oral SpO2: 98% 97% 97% 100% Weight: Height: Intake/Output Summary (Last 24 hours) at 10/04/2023 1141 Last data filed at 10/04/2023 0930 Gross per 24 hour Intake 2600 ml Output -- Net 2600 ml Physical Exam: Gen: awake, NAD Resp: Unlabored, no wheeze Cardio: regular rate to peripheral palpation Spine Exam Sensation grossly intact L LE: HF 5/5 KE 5/5 DF 2/5 EHL 3/5 PF 5/5 R LE: HF 5/5 KE 5/5 DF 1/5 EHL 1/5 PF 5/5 Labs: CBC: Recent Labs 10/04/23 0941 10/03/23 0454 WBC 10.84 11.20* HB 12.1* 11.5* HCT 37.6* 35.0* PLT 352 354 MCV 101.1* 97.5 RDWCV 12.4 11.9 COAG: No results for input(s): APTT , INR in the last 168 hours. BMP: Recent Labs 10/04/23 0942 10/03/23 0454 GLUC 100* 121* NA 141 138 K 3.9 4.0 CHLOR 104 105 CO2 27 23 ANION 10 10 BUN 15 21 CREAT 0.83 0.92 CHEM: Recent Labs 10/04/23 0942 10/03/23 0454 CA 9.4 9.0 URINALYSIS:No results for input(s): PH , SPGR , UGLUC , UBILI , UKET , UHB , UPROT , UROBIL , UWBC , SSA in the last 168 hours. Invalid input(s): NITR Intake/Output Summary (Last 24 hours) at 10/04/2023 1141 Last data filed at 10/04/2023 0930 Gross per 24 hour Intake 2600 ml Output -- Net 2600 ml Lines, Drains, and Airways Line Duration Peripheral 10/02/23 1245 [facility] Right Hand 18 Gauge 1 day Plan of care discussed with: Provider, RN, Patient. Hui Whyte MD If Urgent/5p-7a/Wknd Main [place]: [facility] Spine Fellow [facility] 10-03-2023 Note HNO ID: [id number] Author: JAYLON CARABALLO LSW Service: Care Management Author Type: Director Of Maintenance Type: Care Mgt Initial Assessment Filed: 10/03/2023 12:11 Note Text: CARE MANAGEMENT: ASSESSMENT AND DISCHARGE PLAN SERVICE DATE: October 03, 2023 SERVICE TIME: 12:09 PM PCP: Ester Cain MD Primary Contact: Extended Emergency Contact Information Primary Emergency Contact: MichaelMarycarmen Address: [address] [place] [address] Mobile Relation: Spouse Secondary Emergency Contact: MICHAEL,ANDY Mobile Relation: Son Admission Status: Inpatient Insurance Provider: [facility] CHO[employer] PL[facility] Post-Acute Discharge Plan: Chart reviewed. PT/OT skilled patient for home. Pt lives at home with his spouse. Pt on Room Air. Pt is not on any notable IV meds at this time. This patient has been screened for Care Management Transitional Planning Services. At this time, it does not appear this patient will require transition planning services. Should this change, and the patient require transition planning services during this admission, please contact Case Management. Please see Treatment Team for Care Management Weekend/Holiday coverage. SIGNATURE: DALLAS Larsen PATIENT NAME: Braden Rodriguez DATE: October 03, 2023 TIME: 12:09 PM CONTACT #: [phone] [facility] 10-03-2023 Note HNO ID: [id number] Author: SARAY NARAYANAN APRN.MICE RAISER Service: Neurosurgery Author Type: Nurse Practitioner Type: Progress Notes Filed: 10/03/2023 11:30 Note Text: SERVICE DATE: 10/03/2023 SERVICE TIME: 11:29 AM SPINE SURGERY TEAM PROGRESS NOTE After 6 PM (1800) please page Camryn Cope PA-C [phone], backup pager [phone]. Attending: Katherine Hogue MD Location: [id number]/[id number] 10/02/2023 1 Day Post-Op S/P: right L4/5 facetectomy MEDICATIONS: Current medications and allergies reviewed. Recommended/planned medication changes discussed in detail in the A/P section below. INTERVAL HPI (Subjective): is a 68 year old male who reports no complaints overnight. Pain is controlled. Skilled for home by PT. Plan to DC romero and dispo home tomorrow. Overnight events noted: none. Bowel / Bladder dysfunction: No OBJECTIVE: LABS: CBC: Recent Labs 10/03/234 WBC 11.20* HB 11.5* HCT 35.0* PLT 354 MCV 97.5 RDWCV 11.9 COAG: No results for input(s): APTT , INR in the last 168 hours. BMP: Recent Labs 10/03/23 0454 GLUC 121* NA 138 K 4.0 CHLOR 105 CO2 23 ANION 10 BUN 21 CREAT 0.92 CHEM: Recent Labs 10/03/234 CA 9.0 HEPATIC: No results for input(s): ALKPHOS , ALT , AST , TBILI , LIPASE in the last 168 hours. URINALYSIS:No results for input(s): PH , SPGR , UGLUC , UBILI , UKET , UHB , UPROT , UROBIL , UWBC , LEUKEST , SSA in the last 168 hours. Invalid input(s): NITR CARDIAC: No results for input(s): CKTEST , CKMB , CKMBP , TROPT , PBNP in the last 168 hours. HbA1C: No results found for: HBA1C CRP: Lab Results Component Value Date CRP <0.3 09/07/2023 ESR: Lab Results Component Value Date WSR 5 09/07/2023 Blood Glucose Checks: Lab Results Component Value Date PCGLUCOSE 130 (A) 08/22/2023 PCGLUCOSE 224 (A) 08/21/2023 PCGLUCOSE 115 (A) 08/21/2023 PCGLUCOSE 175 (A) 08/21/2023 Vitamin D: No results found for: VITD25 CULTURES: N/A Estimated Creatinine Clearance: 95.4 mL/min (based on SCr of 0.92 mg/dL). 10/02/23 2140 10/03/23 0207 10/03/23 0521 10/03/23 0922 BP: 100/56 128/65 106/51 Pulse: 81 71 71 Resp: 16 16 16 Temp: 36.9 ?C (98.4 ?F) 37.1 ?C (98.8 ?F) 36.4 ?C (97.5 ?F) TempSrc: Oral Oral Oral SpO2: 95% 98% 100% Weight: 97 kg (213 lb 13.5 oz) Height: 182.9 cm (6') General: A AND O x Oriented to: person, place, and time, awake, alert, and oriented. Speech is Normal, full, fluent. Appears stated age, well built, in no apparent distress. Psychiatric: Mood and affect: Appropriate. Skin: Color, texture, turgor normal. No rashes or lesions - Inspection: No evidence of eythema, warmth, bruising, abrasions, scars, deformity, or lacerations. -Incision: Cleam, dry and intact CV: Normal heart sounds, rate, rhythm, pedal pulses. No audible murmurs, carotid bruits, LE edema.. Tele: normal sinus rhythm Respiratory: lungs CTA bilat Abdomen: Soft and Non-tender Musculoskeletal: Motor: UE BICEPS TRICEPS DELTS Wrist Ext Wrist Flex Information Technology Manager HI R 5/5 5/5 5/5 5/5 5/5 5/5 5/5 L 5/5 5/5 5/5 5/5 5/5 5/5 5/5 LE Hip Flex Knee Flex Knee Extend Plantarflex Dorsiflex EHL R 5/5 5/5 5/5 4/5 2/5 3/5 L 5/5 5/5 5/5 4/5 1/5 2/5 Sensory: intact. Gait: normal-based. Long Tract Signs: No clonus, Babinski, or Hoffmans. QUALITY CHECKLIST: Lines, Drains, and Airways Line Duration Peripheral 10/02/23 1245 [facility] Facility Right Hand 18 Gauge <1 day Reviewed lines and will discuss with nurse to discontinue. Current restraint orders: None Assessment AND Plan Active Hospital Problems as of 10/03/2023 Noted - Resolved POA Hospital Primary hypertension 08/06/2023 - Present Yes Current Assessment AND Plan Assessment: HTN PLAN: -Continue home CARVEDILOL 12.5 MG TABLET Take 12.5 mg by mouth two times a day with meals. FUROSEMIDE 40 MG TABLET Take 40 mg by mouth once daily. -Monitor: signs, symptoms, disease progression, disease regression. -Evaluate: test results, medication effectiveness, response to treatment. * (Principal) Low back pain 10/02/2023 - Present Yes Current Assessment AND Plan lumbar radiculopathy S/P Right L4/5 facetectomy -Activity: WBAT, no heavy bending lifting or twisting - Antibiotics x 24 hrs periop - Romero: remove POD1 if present - Pain - PO and IV breakthrough - DVT prophylaxis - SCDs, SQH BID starting POD2 - H/H stable, no indication for transfusion at this time - PT/OT, appreciate recs for discharge -To follow up with neurology outpatient for foot drop after discharge Medication and Non-Pharmacologic VTE Prophylaxis/Anticoagulants Anticoagulant AND Antiplatelet Medications (From admission, onward) Start Dose Route Frequency Last Action Ordered Stop 10/04/23 0900 heparin 5,000 Units injection (Surgical Risk Categories) 5,000 Units SUBCUTANEOUS EVERY 12 HOURS Ordered 10/02/232 -- 10/02/23 (more content not included)... [facility] 10-03-2023 Note HNO ID: [id number] Author: TANISHA HERRERA MD Service: Orthopaedic Surgery Author Type: Resident Type: Progress Notes Filed: 10/03/2023 07:58 Note Text: ORTHOPAEDIC SURGERY SPINE PROGRESS NOTE PATIENT NAME: Braden Rodriguez Attending: Katherine Hogue MD Hospital Day: 2 Date of Surgery: 10/02/2023 Day of Surgery Assessment: 68 year old yo male s/p right L4/5 facetectomy on above date. Plan: - Activity: WBAT, no heavy bending lifting or twisting - Antibiotics x 24 hrs periop - Romero: remove POD1 if present - Pain - PO and IV breakthrough - DVT prophylaxis - SCDs, SQH BID starting POD2 - H/H stable, no indication for transfusion at this time - PT/OT, appreciate recs for discharge -To follow up with neurology outpatient for foot drop after discharge Dispo: pending pain/PT Subjective: Recovering post op. Pain controlled.Had a good night rest. No headaches. VITALS: 10/02/23 1900 10/02/23 1915 10/02/23 1930 10/02/231999 BP: 141/71 139/75 136/65 135/69 Pulse: 70 73 68 70 Resp: 14 12 14 12 Temp: 36.4 ?C (97.5 ?F) TempSrc: Temporal SpO2: 98% 99% 97% 98% Weight: Height: Intake/Output Summary (Last 24 hours) at 10/02/20232025 Last data filed at 10/02/20232014 Gross per 24 hour Intake 2498 ml Output 987 ml Net 1511 ml Physical Exam: Gen: awake, NAD Resp: Unlabored, no wheeze Cardio: regular rate to peripheral palpation Spine Exam Sensation grossly intact L LE: HF 5/5 KE 5/5 DF 2/5 EHL 3/5 PF 5/5 R LE: HF 5/5 KE 5/5 DF 1/5 EHL 1/5 PF 5/5 Labs: CBC:No results for input(s): WBC , [...] the last 168 hours. Invalid input(s): NITR Intake/Output Summary (Last 24 hours) at 10/02/20232025 Last data filed at 10/02/20232014 Gross per 24 hour Intake 2498 ml Output 987 ml Net 1511 ml Lines, Drains, and Airways Line Duration Peripheral 10/02/23 1245 [facility] Right Hand 18 Gauge <1 day Drain Duration Indwelling Urinary Catheter 10/02/23 1445 Coude 16 Fr <1 day Plan of care discussed with: Provider, RN, Patient. Tanisha Herrera MD, MS PGY-1 Orthopaedic Surgery Personal cell/pager: [phone] Between 5PM to 7AM, on weekends or if urgent, please page the orthopaedic on-call resident at: [phone] for [facility] patients [phone] for [facility] patients [id number] for [facility] patients [id number] for [facility] patients [phone] for [facility] patients [facility] 10-02-2023 Note HNO ID: [id number] Author: HUI WHYTE MD Service: Neurosurgery Author Type: Fellow Type: Progress Notes Filed: 10/02/2023 17:49 Note Text: ORTHOPAEDIC SURGERY SPINE PROGRESS NOTE PATIENT NAME: Braden Rodriguez Attending: Katherine Hogue MD Hospital Day: 1 Date of Surgery: 10/02/2023 Day of Surgery Assessment: 68 year old yo male s/p right L4/5 facetectomy on above date. Plan: - Activity: WBAT, no heavy bending lifting or twisting - Antibiotics x 24 hrs periop - Romero: remove POD1 if present - Pain - PO and IV breakthrough - DVT prophylaxis - SCDs, SQH BID starting POD2 - Acute blood loss anemia: H/H stable, no indication for transfusion at this time - PT/OT, appreciate recs for discharge Dispo: pending pain/PT Subjective: Recovering post op. Pain controlled. VITALS: 10/02/23 1235 BP: 142/77 Pulse: 67 Resp: 18 Temp: 37 ?C (98.6 ?F) TempSrc: Temporal SpO2: 100% Weight: 91.6 kg (202 lb) Height: 182.9 cm (6') Intake/Output Summary (Last 24 hours) at 10/02/2023 1746 Last data filed at 10/02/2023 1727 Gross per 24 hour Intake 1700 ml Output 62 ml Net 1638 ml Physical Exam: Gen: awake, NAD Resp: Unlabored, no wheeze Cardio: regular rate to peripheral palpation Spine Exam Sensation grossly intact L LE: HF 5/5 KE 5/5 DF 2/5 EHL 3/5 PF 5/5 R LE: HF 5/5 KE 5/5 DF 1/5 EHL 1/5 PF 5/5 Labs: CBC:No results for input(s): WBC , [...] the last 168 hours. Invalid input(s): NITR Intake/Output Summary (Last 24 hours) at 10/02/2023 1746 Last data filed at 10/02/2023 1727 Gross per 24 hour Intake 1700 ml Output 62 ml Net 1638 ml Lines, Drains, and Airways Line Duration Peripheral 10/02/23 1245 [facility] Right Hand 18 Gauge <1 day Drain Duration Indwelling Urinary Catheter 10/02/23 1445 Coude 16 Fr <1 day Plan of care discussed with: Provider, RN, Patient. Hui Whyte MD If Urgent/5p-7a/Wknd [facility] [place] 10-02-2023 Note HNO ID: [id number] Author: DARIUS JONES, DO Service: ? Author Type: Resident Type: Anesthesia Procedure Notes Filed: 10/02/2023 15:08 Note Text: ANESTHESIOLOGY PROCEDURE NOTE Airway General Information Procedure Start Time/Medication Administration: 10/02/2023 2:42 PM Procedure End Time: 10/02/2023 3:08 PM Patient location during procedure: OR Timeout Performed Pre-procedure: timeout performed Consent Obtained: Yes Patient identity confirmed: arm band Staffing Resident: Darius Jones DO Performed by: resident Indications and Patient Condition Indications for airway management: anesthesia Preoxygenated: yes anesthesia circuit Method: sleep Difficult Mask: No Final Airway Details Final airway type: endotracheal airway Final Endotracheal Airway: ETT Cuffed: yes Successful intubation technique: video laryngoscopy Devices used: Glidescope Endotracheal tube insertion site: oral Blade size: #4 ETT size (mm): 7.5 Measured from: lips Measurement (cm): 21 Placement verified by: capnometry Cormack-Lehane Classification: grade I - full view of glottis Number of attempts at approach: 1 Airway not difficult SIGNATURE: Darius Jones DO PATIENT NAME: Braden Rodriguez DATE: October 02, 2023 TIME: 3:07 PM CSN: [id number] [facility] 09-30-2023 Telephone encounter Note Summary: Research Interest: POUR study I spoke with Braden Rodriguez, over the phone on 09/30/2023 regarding the study IRB# [id number]: Postoperative urinary retention in patients after noncardiac surgery and reversal of neuromuscular block by neostigmine or sugammadex: A randomized control trial. The PI of the study is Dr. Saleem Chen. The study was briefly explained. The patient did not show interest in the research project. If interested, patient will still need to be consented in-person and will sign the approved IRB consent form before surgery. I provided the patient with all of my contact information for any other questions and/or concerns. I thanked the patient for their time and wished him/her luck with the upcoming procedure. Julianne Levy Medical Student Visiting Researcher OUTCOMES RESEARCH MAIN [facility] 09-30-2023 Miscellaneous Notes Summary: Research Interest: POUR study I spoke with Braden Rodriguez, over the phone on 09/30/2023 regarding the study IRB# [id number]: Postoperative urinary retention in patients after noncardiac surgery and reversal of neuromuscular block by neostigmine or sugammadex: A randomized control trial. The PI of the study is Dr. Saleem Chen. The study was briefly explained. The patient did not show interest in the research project. If interested, patient will still need to be consented in-person and will sign the approved IRB consent form before surgery. I provided the patient with all of my contact information for any other questions and/or concerns. I thanked the patient for their time and wished him/her luck with the upcoming procedure. Mildred, Julianne Brock Medical Student Visiting Researcher OUTCOMES RESEARCH MAIN documented in this encounter [facility] 09-30-2023 Note HNO ID: [id number] Author: WELLINGTON CASTANEDA, RN Service: ? Author Type: Registered Nurse Type: Progress Notes Filed: 09/30/2023 10:11 Note Text: Neuro SPINE CARE COORDINATION PRE-OP VISIT Met with patient via phone for pre op education. Given both written and verbal instructions re : Skin prep, wound care, pain management and post op restrictions. Provided to patient: [facility] Surgery Guide, skin prep supplies, Spine Surgery Pre/post op education packet. Yes Reviewed with patient to report to desk J19 for surgery ? Yes. Reviewed with the patient to call [phone] the day before to get surgery report time? Yes. Patient aware eat nothing after midnight prior to surgery, clear liquids only until 2 hours before report time. Yes. Patient aware surgery will be INPATIENT. Discussed care post discharge : Self care and Home Health Care ( PT-OT-nurse). Does patient have transportation to and from surgery ? Yes. Falls Education provided ? Yes Nasal swab obtained ? No. Patient instructed in mupirocin treatment : n/a. Questions answered and patient voice(s) understanding via teach back. Physical Therapy : n/a Additional Comments : Post -op Support lives at home and has support of son and daughter. Wellington Castaneda RN [facility] 09-30-2023 History of Presen t illness Narrative Neuro SPINE CARE COORDINATION PRE-OP VISIT Met with patient via phone for pre op education. Given both written and verbal instructions re : Skin prep, wound care, pain management and post op restrictions. Provided to patient: [facility] Surgery Guide, skin prep supplies, Spine Surgery Pre/post op education packet. Yes Reviewed with patient to report to desk J19 for surgery ? Yes. Reviewed with the patient to call [phone] the day before to get surgery report time? Yes. Patient aware eat nothing after midnight prior to surgery, clear liquids only until 2 hours before report time. Yes. Patient aware surgery will be INPATIENT. Discussed care post discharge : Self care and Home Health Care ( PT-OT-nurse). Does patient have transportation to and from surgery ? Yes. Falls Education provided ? Yes Nasal swab obtained ? No. Patient instructed in mupirocin treatment : n/a. Questions answered and patient voice(s) understanding via teach back. Physical Therapy : n/a Additional Comments : Post -op Support lives at home and has support of son and daughter. Wellington Castaneda RN documented in this encounter [facility] 09-24-2023 Telephone encounter Note CARE CONTINUUM ADVISOR ASSESSMENT PRIMARY CARE PHYSICIAN: Ester Cain MD OR Surgery Date: 10/02/23 Health Insurance: [employer] [facility] Financial Resources: Retired Primary Contact: Extended Emergency Contact Information Primary Emergency Contact: Marycarmen Rodriguez Address: [address] [place] [address] OF [facility] Mobile Relation: Spouse Secondary Emergency Contact: NORA RODRIGUEZ Mobile Relation: Son Other Important Patient Contacts: None 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 Yes, requested copies for chart Does Patient Have Concerns About Advance Directives? No Education Provided: No SOCIAL: Living Arrangement: Home Lives With: Spouse Stairs: 2 story home Do you have any concerns with food and/or affording food?: No Do you have reliable transportation to and from surgery/appointments?: Yes Medication Adherence: Do you have any concerns with your prescription medication?: No Who do you use for pharmacy?: [facility] d/c Pre-Hospital Baseline Mental Status: Alert & Oriented Informant: Self What is your current functional status?: Perform ADLs independently Equipment: Do you currently use any equipment at home for your medical condition or to help you get around? Walker Active Services/Needs: None Fall: none reported Do you have a community mental health worker contact through your insurance or WRAAA?: No Has the Patient Been in a Residential Facility in the Past 30 days? No FREEDOM OF CHOICE: Level of Care Discussed: Home Care Financial Disclosure Provided: No Financial Disclaimer Provided: No Provider List: Home Care Provider list within the patient's requested geographic area shared with the patient/family: Yes - Within [address] of [address] [place] [address] Provider Choices Collected Home Health: no prefernece Interventions: N/A SIGNATURE: DALLAS Barros PATIENT NAME: Braden Rodriguez DATE: September 24, 2023 TIME: 1:00 PM PAGER/CONTACT #: [facility] 09-24-2023 Miscellaneous Notes CARE CONTINUUM ADVISOR ASSESSMENT PRIMARY CARE PHYSICIAN: Ester Cain MD OR Surgery Date: 10/02/23 Health Insurance: [employer] [facility] Financial Resources: Retired Primary Contact: Extended Emergency Contact Information Primary Emergency Contact: Marycarmen Rodriguez Address: [address] [place] [address] OF [facility] Mobile Relation: Spouse Secondary Emergency Contact: NORA RODRIGUEZ Mobile Relation: Son Other Important Patient Contacts: None 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 Yes, requested copies for chart Does Patient Have Concerns About Advance Directives? No Education Provided: No SOCIAL: Living Arrangement: Home Lives With: Spouse Stairs: 2 story home Do you have any concerns with food and/or affording food?: No Do you have reliable transportation to and from surgery/appointments?: Yes Medication Adherence: Do you have any concerns with your prescription medication?: No Who do you use for pharmacy?: [facility] d/c Pre-Hospital Baseline Mental Status: Alert & Oriented Informant: Self What is your current functional status?: Perform ADLs independently Equipment: Do you currently use any equipment at home for your medical condition or to help you get around? Walker Active Services/Needs: None Fall: none reported Do you have a community mental health worker contact through your insurance or WRAAA?: No Has the Patient Been in a Residential Facility in the Past 30 days? No FREEDOM OF CHOICE: Level of Care Discussed: Home Care Financial Disclosure Provided: No Financial Disclaimer Provided: No Provider List: Home Care Provider list within the patient's requested geographic area shared with the patient/family: Yes - Within [address] of [address] [place] [address] Provider Choices Collected Home Health: no prefernece Interventions: N/A SIGNATURE: DALLAS Barros PATIENT NAME: Braden Rodriguez DATE: September 24, 2023 TIME: 1:00 PM PAGER/CONTACT #: CM was able to leave a brief detailed message on identified vm requesting call back to discuss post op care. CM provided contact information. documented in this encounter [facility] 09-24-2023 Telephone encounter Note CM was able to leave a brief detailed message on identified vm requesting call back to discuss post op care. CM provided contact information. [facility] 09-16-2023 Telephone encounter Note Attempted to return call to home care PT Patient is coming back in for surgery in 2 weeks. Does not nee home care at this time. [facility] 09-16-2023 Miscellaneous Notes Attempted to return call to home care PT Patient is coming back in for surgery in 2 weeks. Does not nee home care at this time. Call received for Katherine Keith MD regarding Braden Rodriguez. Caller: Other: Devin with [facility] Patient Identified by Name and : Yes Reason for Call: Devin is calling to notify Dr. Keith that patient has not been seen for PT Devin states patient will not return calls Is there any additional information the provider should know? No, no response needed Last Office Visit: 09/04/2023 Next scheduled appointment: 10/08/2023 Best number to reach caller: Devin [phone] Best time to reach caller: 9 am till 5 pm Is it OK to leave a detailed voice message? Yes Melia Vieyra documented in this encounter [facility] 09-16-2023 Telephone encounter Note Call received for Katherine Keith MD regarding Braden Rodriguez. Caller: Other: Devin with [facility] Patient Identified by Name and : Yes Reason for Call: Devin is calling to notify Dr. Keith that patient has not been seen for PT Devin states patient will not return calls Is there any additional information the provider should know? No, no response needed Last Office Visit: 09/04/2023 Next scheduled appointment: 10/08/2023 Best number to reach caller: Devin [phone] Best time to reach caller: 9 am till 5 pm Is it OK to leave a detailed voice message? Yes Melia Vieyra [facility] 09-15-2023 Note Addended by: STEPHANE FAIR on: 09/15/2023 01:41 PM Modules accepted: Orders [facility] 09-15-2023 Miscellaneous Notes Addended by: STEPHANE FAIR on: 09/15/2023 01:41 PM Modules accepted: Orders Reviewed in patient notes Covering provider for Alfonso Loyd PA-C and Katherine Keith MD Patient's request for medication is as follows: Requested Prescriptions Pending Prescriptions Disp Refills oxyCODONE IR (ROXICODONE) 10 mg tab 42 tablet 0 Sig: Take 1 tablet by mouth every 4 hours as needed for pain for up to 7 days. Stephane Fair PA-C Spine Surgery documented in this encounter [facility] 09-15-2023 Telephone encounter Note Reviewed in patient notes Covering provider for Alfonso Loyd PA-C and Katherine Keith MD Patient's request for medication is as follows: Requested Prescriptions Pending Prescriptions Disp Refills oxyCODONE IR (ROXICODONE) 10 mg tab 42 tablet 0 Sig: Take 1 tablet by mouth every 4 hours as needed for pain for up to 7 days. Stephane Fair PA-C Spine Surgery [facility] 09-12-2023 Note Addended by: ALFONSO LOYD on: 09/12/2023 02:35 PM Modules accepted: Orders [facility] 09-12-2023 Miscellaneous Notes Addended by: ALFONSO LOYD on: 09/12/2023 02:35 PM Modules accepted: Orders documented in this encounter [facility] 09-10-2023 Note HNO ID: [id number] Author: MANUEL VERA, ? Service: Pharmacy Author Type: Drawbench Operator Helper Type: Plan of Care Filed: 09/10/2023 16:32 Note Text: PHARMACY BEDSIDE DELIVERY SERVICE Patient Name: Braden Rodriguez The marked outpatient medications were Filled at: [facility] and delivered to the patient's bedside to patient Medication List START taking these medications gabapentin 300 mg capsule Commonly known as: NEURONTIN Take 1 capsule by mouth every 8 hours for 30 days. MEDICATION: DELIVERED tiZANidine 2 mg tablet Commonly known as: ZANAFLEX Take 3 tablets by mouth every 8 hours. MEDICATION: DELIVERED CHANGE how you take these medications oxyCODONE IR 10 mg Tab Commonly known as: ROXICODONE Take 1 tablet by mouth every 6 hours as needed for up to 7 days. What changed: medication strength how much to take reasons to take this MEDICATION: DELIVERED CONTINUE taking these medications acetaminophen 325 mg tablet Commonly known as: TYLENOL 2 tablets by ORAL/FEEDING TUBE route every 4 hours. carvedilol 12.5 mg tablet Commonly known as: COREG senna-docusate 8.6-50 mg per tablet Commonly known as: SENNA-S Take 2 tablets by mouth two times a day. You might also be taking other medications not listed above. If you have questions about any of your other medications, talk to the person who prescribed them or your Primary Care Provider. STOP taking these medications methocarbamol 750 mg tablet Commonly known as: ROBAXIN Manuel Vera PAGER: [phone] September 10, 2023 4:30 PM [facility] 09-10-2023 Note HNO ID: [id number] Author: MANUEL VERA, ? Service: Pharmacy Author Type: Drawbench Operator Helper Type: Plan of Care Filed: 09/10/2023 15:06 Note Text: Insurance investigation completed Patient has active prescription insurance: Yes - Patient's insurance is in-network with [facility] Insurance loaded into [employer]: Yes Test claim was completed to verify insurance is active: Successful Any questions, please contact your medication identity access management architect. Pager #: [phone] [facility] 09-10-2023 Note HNO ID: [id number] Author: CHILANGO COTTO PA-C Service: Neurosurgery Author Type: Physician Mold Washer Type: Progress Notes Filed: 09/10/2023 12:52 Note Text: SERVICE DATE: 09/10/2023 SERVICE TIME: 12:52 PM SPINE SURGERY TEAM PROGRESS NOTE After 6 PM (1800) please page Camryn Cope PA-C [phone], backup pager [phone]. Attending: Katherine Hogue MD Location: [place] [address] Hospital Day: 4 MEDICATIONS: Current medications and allergies reviewed. Recommended/planned medication changes discussed in detail in the A/P section below. INTERVAL HPI (Subjective): is a 68 year old male who reports continued RLE pain although states that it is somewhat improved today after medication changes were made. Reviewed plan for MRI today and likely d/c home afterwards if there are no acute findings. Denies excessive pain, bleeding, drainage, nausea, vomiting, chest pain, shortness of breath, and light headedness. Overnight events noted: none. Bowel / Bladder dysfunction: No OBJECTIVE: LABS: CBC: Recent Labs 09/07/232047 WBC 13.43* HB 12.5* HCT 38.1* PLT 285 MCV 99.2 RDWCV 13.3 NEUTP 77.4 ABSNEUT 10.39* LYMPHP 12.2 MONOP 10.4 COAG: No results for input(s): APTT , INR in the last 168 hours. BMP: Recent Labs 09/10/23 0858 09/09/23 0808 09/07/232047 GLUC 82 123* 90 NA 139 139 141 K 4.3 4.4 3.8 CHLOR 102 101 105 CO2 27 25 26 ANION 10 13 10 BUN 22 25* 29* CREAT 0.88 0.99 0.93 CHEM: Recent Labs 09/10/23 0858 09/09/23 0808 09/07/232047 ALB -- 3.9 4.0 TPROT -- -- 6.0* CA 9.6 9.7 9.7 MG -- 2.1 2.1 P -- 3.3 -- HEPATIC: Recent Labs 09/07/232047 ALKPHOS 136* ALT 20 AST 19 TBILI 0.6 URINALYSIS: Recent Labs 09/07/23 2311 SPGR 1.007 UGLUC Negative UBILI Negative UKET Negative UHB Negative UPROT Negative UWBC 0-5 /HPF LEUKEST Negative CARDIAC: Recent Labs 09/07/232047 PBNP 153* CrCl cannot be calculated (Unknown ideal weight.). 09/09/23203109/10/23 0053 09/10/23 0552 09/10/23 0909 BP: 163/83 125/57 107/55 157/77 Pulse: 72 63 60 (!) 59 Resp: 18 18 18 18 Temp: 36.6 ?C (97.9 ?F) 36.4 ?C (97.5 ?F) TempSrc: Oral Oral Oral Oral SpO2: 99% 100% 97% 100% General: A AND O x Oriented to: person, place, and time, awake and alert. Speech is Normal, full, fluent. Appears stated age, well built, in no apparent distress. Psychiatric: Mood and affect: Appropriate. Skin: Color, texture, turgor normal. No rashes or lesions - Inspection: No evidence of eythema, warmth, bruising, abrasions, scars, deformity, or lacerations. Prior incisions well healing CV: Normal heart sounds, rate, rhythm, pedal pulses. No audible murmurs, carotid bruits, LE edema.. Respiratory: unlabored breathing Abdomen: Soft and Non-tender Musculoskeletal: Motor: UE BICEPS TRICEPS DELTS Wrist Ext Wrist Flex Information Technology Manager HI R 5/5 5/5 5/5 5/5 5/5 5/5 5/5 L 5/5 5/5 5/5 5/5 5/5 5/5 5/5 LE Hip Flex Knee Flex Knee Extend Plantarflex Dorsiflex EHL R 5/5 5/5 5/5 4+/5 0/5 0/5 L 5/5 5/5 5/5 5/5 0/5 0/5 Sensory: Diminished sensation on dorsal aspect of foot bilaterally QUALITY CHECKLIST: Lines, Drains, and Airways Line Duration Peripheral 09/07/232047 [facility] Short Right Antecubital 20 Gauge 2 days Patient does not currently have any lines, drains or airways. Current restraint orders: None Assessment AND Plan Active Hospital Problems as of 09/10/2023 Noted - Resolved POA Hospital Primary hypertension 08/06/2023 - Present Yes Current Assessment AND Plan Assessment: POA PLAN: -Continue present regimen S/P lumbar fusion 08/19/2023 - Present Yes Current Assessment AND Plan Assessment: S/p L2-5 OLIF on 08/18 PLAN: -Pain control: continue present regimen -PT/OT rec [facility]HC -MRI today -DVT ppx: continue IPCs, heparin SQ bid -OOB for meals, mobilize at least 3x daily -Bowel regimen -Likely d/c following MRI pending imaging results -D/w Dr. Keith * (Principal) Intractable pain 09/08/2023 - Present Yes Current Assessment AND Plan Assessment: POA PLAN: -Continued RLE pain, improved with medication adjustments -Continue gabapentin 300 tida -Continue zanaflex -Continue prn oxycodone Edema of both lower extremities 09/08/2023 - Present Yes Localized swelling of lower extremity 09/08/2023 - Present Unknown Pain and swelling of lower extremity 09/08/2023 - Present Unknown Current Assessment AND Plan Assessment: POA PLAN: -DVT scan negative -Continue JULIA hose Medication and Non-Pharmacologic VTE Prophylaxis/Anticoagulants Anticoagulant AND Antiplatelet Medications (From admission, onward) Start Dose Route Frequency Last Action Ordered Stop 09/08/23 0130 heparin 5,000 Units injection (Medical Risk Categories) 5,000 Units SUBCUTANEOUS EVERY 12 HOURS Given, 09/09 0815 09/08/23 0122 -- 09/08/23 1400 graduated compression stockings ([place]) 09/08/23 013 (more content not included)... [facility] 09-09-2023 Note HNO ID: [id number] Author: HUI WHYTE MD Service: Neurosurgery Author Type: Fellow Type: Plan of Care Filed: 09/09/2023 15:57 Note Text: Spine Surgery Note Saw patient this afternoon with Dr. Keith. Patient is s/p 08/19/23 L2-L5 OLIF. Developed right foot drop post-operatively that was painless and was discharged home. Was admitted to medicine service for uncontrolled pain that began a few days after surgery. He now has pain radiating down his right leg in L5 distribution as well as ongoing foot drop. Chronic foot drop on the left without radicular pain. Otherwise NVI. Plan: - Transfer to Dr. Keith's service. This was communicated to the medicine team who is in agreement. - Acute pain consult. Spoke with [facility] team who states they normally do not provide recs this far out from surgery but understand the situation and will make an exception. Appreciate recommendations. Will start by adding Zanaflex to be alternated with oxycodone. - MRI lumbar spine ordered - PT/OT - Discussed with patient and family that his XR and CT show appropriate position of hardware. There is a spike of bone that may be causing stretch and compression on his nerve root. Dr. Keith will be out of town and unable to take patient to the OR until he returns. Plan to take to OR 10/01 for facetectomy. In the meantime, would like to get pain better controlled and appreciate recs from [facility]. Goal to discharge patient home tomorrow if pain is controlled, imaging complete, and cleared by PT/OT. Patient and family in agreement with the plan. Hui Whyte MD Spine Fellow Please page JUDY covering patient or 2BONE for any questions or concerns regarding this patient [facility] 09-09-2023 Note HNO ID: [id number] Author: LISE JONES RN Service: Care Management Author Type: Registered Nurse Type: Care Mgt Progress Note Filed: 09/09/2023 13:13 Note Text: CARE MANAGEMENT PROGRESS NOTE SERVICE DATE: 09/09/2023 SERVICE TIME: 1:12 PM LOS: 1 day Needs Prior to Discharge: To Be Determined DISCHARGE PLAN Discharge plan discussed with: medical team Anticipated Discharge Plan: Home with Home Care, tasked [facility] to build home care referral. Anticipated Discharge Date: Within 48 hours DISCHARGE TRANSPORTATION Patient has been informed that discharge time is 12pm on day of discharge. Discharge Transportation: Patient stated that discharge transportation will be by car, provided by: family. Discharge Barriers: medical clearance CM will continue to follow for discharge needs. SIGNATURE: Lise Jones RN, BSN PATIENT NAME: Braden Rodriguez DATE: September 09, 2023 TIME: 1:12 PM PAGER/CONTACT #: [phone] [facility] 09-09-2023 Note HNO ID: [id number] Author: CHRISTINE WASHINGTON PA-C Service: Hospital Medicine Author Type: Physician Mold Washer Type: Progress Notes Filed: 09/09/2023 10:36 Note Text: DEPARTMENT OF HOSPITAL MEDICINE PROGRESS NOTE SERVICE DATE: 09/09/2023 SERVICE TIME: 8:23 AM Hospital Medicine/Primary Attending: Mamta Redding MD NIGHT AND WEEKEND COVERAGE: Please page me at [phone] from 7:30AM to 5:30PM For Overnight (5:30PM --> 07:30AM): For patients on H80/H81/G80/G81 please page [phone] For patients on Any Other Floor please page [phone] Subjective INTERVAL HPI: Swelling and pain are rather unchanged since yesterday. Swelling of the legs is improved though overall since admission. Will redose 1x dose of IV lasix today. For pain we discussed increasing his Zanaflex. He had tried Robaxin in the past which did not help. Will add lido patches as well. He states he knows he needs to be up moving more frequently and will work on that today, awaiting PT eval. Reports feeling slightly ''backed up and will thus increase his bowel regimen which he agrees with. Current Facility-Administered Medications Medication Dose Route Frequency carvedilol 12.5 mg tab(s) (COREG) 12.5 mg ORAL BID w MEALS oxyCODONE IR 10 mg tab(s) (ROXICODONE) 10 mg ORAL q 6 H PRN senna-docusate 8.6-50 mg 2 tablet (SENNA-S) 2 tablet ORAL/FEEDING TUBE BID gabapentin 300 mg cap(s) (NEURONTIN) 300 mg ORAL q 8 H heparin 5,000 Units injection 5,000 Units SUBCUTANEOUS q 12 H NaCl 0.9% iv flush bag 20 mL INTRAVENOUS PRN predniSONE (DELTASONE) tab(s) 30 mg 30 mg ORAL DAILY tiZANidine 4 mg tab(s) (ZANAFLEX) 4 mg ORAL q 8 H PRN acetaminophen 1,000 mg tab(s) (TYLENOL) 1,000 mg ORAL/FEEDING TUBE q 8 H diclofenac 1 % 2 g topical gel (VOLTAREN) 2 g TOPICAL QID calcium carbonate 500 mg chewable tab(s) (TUMS) 500 mg ORAL BID PRN Objective PHYSICAL EXAM: BP 127/67 Pulse 60 Temp (Src) 97.8 (Oral) Resp 18 SpO2 98% O2 Therapy: Room Air Physical Exam Performed GENERAL: Alert, no distress, cooperative, Sitting up in chair in NAD LUNGS: RA and unlabored in full sentences. CARDIAC: Normal S1 and S2; no rubs, murmurs, or gallops ABDOMEN: Abdomen soft, non-tender, BS normal, No masses or organomegaly EXTREMITIES: 2-3+ LE edema bilaterally without tenderness of the legs. Compression stockings are being worn bilaterally. NEURO: Grossly normal cognition, motor function, and cranial nerves III-XII PULSES: 2+ radial Lines, Drains, and Airways Line Duration Peripheral 09/07/232047 [facility] Short Right Antecubital 20 Gauge 1 day Reviewed lines and needs to be continued: REASONS: Intravenous fluids and Electrolyte replacement DATA: Diagnostic tests reviewed for today's visit: Most recent labs Most recent imaging Assessment/Plan Problem List Intractable pain (POA: Yes) Primary hypertension (POA: Yes) S/P lumbar fusion (POA: Yes) Edema of both lower extremities (POA: Yes) Localized swelling of lower extremity (POA: Status not on file) Pain and swelling of lower extremity (POA: Status not on file) 68 year old male with past medical history of HTN, and prior lumbar stenosis s/p laminectomies, most recently s/p L2-5 OLIF (08/19/23, Dr. Keith), who presents with worsening BLE edema and pain. # Intractable pain # Lumbar stenosis s/p laminectomies, most recently s/p L2-5 OLIF (08/19/23, Dr. Keith) # Bilateral foot drop PLAN: - Neurosurgery note appreciated - Continue with Steroid tapering (to finish on 09/10). - Started Gabapentin 300mg tid (Needs Rx at d/c) - Tylenol 1000mg Q8 - Added voltaren gel. - Add Lidocaine patch - Increase Zanaflex to 6mg TID prn - increased Oxycodone to 10mg q6h prn - Can consider adding Toradol once off steroids. - PT/OT consulted - Pain Medicine follow up (patient reports he lives [place]min from [facility] in [facility] and knows they have a pain center, encouraged him today for an appointment). # Bilateral lower extremities edema No h/o CHF, renal failure or liver disease Likely salt and water retention from steroid, could be aggravated by inactivity post surgery resulting dependent edema PLAN: - Added compression stocking today - Lasix 40mg IV x 1 dose. # HTN - BP stable - continue with home Coreg 12.5mg bid Medication and Non-Pharmacologic VTE Prophylaxis/Anticoagulants Anticoagulant AND Antiplatelet Medications (From admission, onward) Start Dose Route Frequency Last Action Ordered Stop 09/08/23 0130 heparin 5,000 Units injection (Medical Risk Categories) 5,000 Units SUBCUTANEOUS EVERY 12 HOURS Given, 09/07 204909/08/23 0122 -- 09/08/23 1400 graduated compression stockings ([place]) 09/08/23 0130 activity - mobilize patient ([place]) VTE Prophylaxis: VTE prophylaxis appropriate Disposition: To be determined Plan of care discussed with Provider, RN, Patient Plan communicated to: Patient prefers to communicate with family (more content not included)... [facility] 09-09-2023 Note HNO ID: [id number] Author: CHRISTINE POLK MD Service: Neurosurgery Author Type: Resident Type: Progress Notes Filed: 09/09/2023 07:46 Note Text: Neurosurgery Inpatient Progress Note Interval HPI: No acute events overnight. -4.5L urine output. Edema in BLE appears slightly improved compared to day prior. Complaints of leg pain and numbness, denies low back pain. Objective: 09/08/23 1307 09/08/23 1741 09/08/23 2046 09/09/23 0639 BP: (!) 113/45 134/75 132/76 127/67 Pulse: 63 71 65 60 Resp: 18 14 18 18 Temp: 36.7 ?C (98.1 ?F) 36.4 ?C (97.5 ?F) 36.4 ?C (97.5 ?F) 36.6 ?C (97.8 ?F) TempSrc: Oral Oral Oral Oral SpO2: 100% 99% 97% 98% Intake/Output Summary (Last 24 hours) at 09/09/2023 0745 Last data filed at 09/09/2023 0200 Gross per 24 hour Intake 950 ml Output 5425 ml Net -4475 ml EXAM: AO x 3 CN grossly intact Strength: RUE: D 5 Bi 5 Tri 5 HG 5 HI 5 LUE: D 5 Bi 5 Tri 5 HG 5 HI 5 RLE: HF 5 KE 5 DF 0 EHL 0 PF 5 LLE: HF 5 KE 5 DF 0 EHL 0 PF 5 SILT in all dermatomes Clonus negative Reflexes: 0 patellar BLE 2+ pitting edema BP 127/67 Pulse 60 Temp (Src) 97.8 (Oral) Resp 18 SpO2 98% O2 Therapy: Room Air A/P: 68 yo M w/ hx of HTN and prior lumbar stenosis s/p laminectomies, most recently s/p L2-5 OLIF (08/19/23, Dr. Keith), who presents with worsening BLE edema and pain. XR lumbar spine shows intact hardware and normal alignment. CT L spine does not show any fractures or lucency around hardware. Patient has bilateral foot drop, which is stable since surgery, with interval development of BLE edema. Incisions are healing well with no evidence of infection or swelling. - Appreciate medicine care - No acute neurosurgical intervention - Avoid NSAIDs - Pain management per primary - Agree with edema treatment - NSGY to sign off at this time, continue medical management Staff: Dr. Sagar Polk MD PGY-2, Neurological Surgery Pager: [phone] Neurosurgery On-Call: [phone] 4:40 PM 09/08/23 Page [phone] after 6pm and on weekends / holidays [facility] 09-08-2023 Note HNO ID: [id number] Author: CHRISTINE POLK MD Service: Neurosurgery Author Type: Resident Type: Progress Notes Filed: 09/08/2023 16:52 Note Text: Neurosurgery Inpatient Progress Note Interval HPI: No acute events overnight. Diuresis given with increased UOP. Gabapentin started. Steroids tapered. Objective: 09/08/23 0522 09/08/23 0929 09/08/23 0946 09/08/23 1307 BP: 144/61 96/57 99/54 (!) 113/45 Pulse: 70 66 65 63 Resp: 18 14 18 Temp: 36.9 ?C (98.4 ?F) 37.1 ?C (98.8 ?F) 36.7 ?C (98.1 ?F) TempSrc: Oral Oral Oral SpO2: 100% 97% 97% 100% Intake/Output Summary (Last 24 hours) at 09/08/2023 1640 Last data filed at 09/08/2023 1600 Gross per 24 hour Intake -- Output 4925 ml Net -4925 ml EXAM: AO x 3 CN grossly intact Strength: RUE: D 5 Bi 5 Tri 5 HG 5 HI 5 LUE: D 5 Bi 5 Tri 5 HG 5 HI 5 RLE: HF 5 KE 5 DF 0 EHL 0 PF 5 LLE: HF 5 KE 5 DF 0 EHL 0 PF 5 SILT in all dermatomes Clonus negative Reflexes: 0 patellar BLE 2+ pitting edema BP 113/45 Pulse 63 Temp (Src) 98.1 (Oral) Resp 18 SpO2 100% O2 Therapy: Room Air A/P: 68 yo M w/ hx of HTN and prior lumbar stenosis s/p laminectomies, most recently s/p L2-5 OLIF (08/19/23, Dr. Keith), who presents with worsening BLE edema and pain. XR lumbar spine shows intact hardware and normal alignment. CT L spine does not show any fractures or lucency around hardware. Patient has bilateral foot drop, which is stable since surgery, with interval development of BLE edema. Incisions are healing well with no evidence of infection or swelling. - Appreciate medicine care - No acute neurosurgical intervention - Imaging reviewed, no evidence of acute hardware complication - Avoid NSAIDs - Pain management per primary - Agree with edema treatment - We will continue to follow Staff: Dr. Sagar Polk MD PGY-2, Neurological Surgery Pager: [phone] Neurosurgery On-Call: [phone] 4:40 PM 09/08/23 Page [phone] after 6pm and on weekends / holidays [facility] 09-08-2023 Note HNO ID: [id number] Author: CHRISTINE WASHINGTON PA-C Service: Hospital Medicine Author Type: Physician Mold Washer Type: Progress Notes Filed: 09/08/2023 14:01 Note Text: DEPARTMENT OF HOSPITAL MEDICINE PROGRESS NOTE SERVICE DATE: 09/08/2023 SERVICE TIME: 9:05 AM Hospital Medicine/Primary Attending: Mamta Redding MD NIGHT AND WEEKEND COVERAGE: Please page me at [phone] from 7:30AM to 5:30PM For Overnight (5:30PM --> 07:30AM): For patients on H80/H81/G80/G81 please page [phone] For patients on Any Other Floor please page [phone] Subjective INTERVAL HPI: Reports his back pain is what is bothering him most. Reports he has had little to no relief and has been to the point where he has been unable to work with PT at home. Gabapentin was started today. Will adjust tylenol and add voltaren gel today. Reports his swelling is improving since admission. Will hold on further diuretic today and add compression stocking. We discussed he may need another dose of lasix tomorrow but we can hold off. Reports he is urinating a significant amount without issues at this time. Current Facility-Administered Medications Medication Dose Route Frequency acetaminophen 650 mg tab(s) (TYLENOL) 650 mg ORAL/FEEDING TUBE q 6 H PRN carvedilol 12.5 mg tab(s) (COREG) 12.5 mg ORAL BID w MEALS oxyCODONE IR 10 mg tab(s) (ROXICODONE) 10 mg ORAL q 6 H PRN senna-docusate 8.6-50 mg 2 tablet (SENNA-S) 2 tablet ORAL/FEEDING TUBE BID gabapentin 300 mg cap(s) (NEURONTIN) 300 mg ORAL q 8 H heparin 5,000 Units injection 5,000 Units SUBCUTANEOUS q 12 H NaCl 0.9% iv flush bag 20 mL INTRAVENOUS PRN predniSONE 40 mg tab(s) (DELTASONE) 40 mg ORAL DAILY [START ON 09/09/2023] predniSONE (DELTASONE) tab(s) 30 mg 30 mg ORAL DAILY furosemide 40 mg injection (LASIX) 40 mg INTRAVENOUS ONCE tiZANidine 4 mg tab(s) (ZANAFLEX) 4 mg ORAL q 8 H PRN Objective PHYSICAL EXAM: BP 144/61 Pulse 70 Temp (Src) 98.4 (Oral) Resp 18 SpO2 100% O2 Therapy: Room Air Physical Exam Performed GENERAL: Alert, no distress, cooperative, Sitting up ini chair eating lunch LUNGS: Lungs clear to auscultation, Good diaphragmatic excursion, RA CARDIAC: Normal S1 and S2; no rubs, murmurs, or gallops ABDOMEN: Abdomen soft, non-tender, BS normal, No masses or organomegaly EXTREMITIES: 2-3+ bilateral LE edema, non-tender. Noted open wound to right leg just superior to knee. NEURO: Grossly normal cognition, motor function, and cranial nerves III-XII PULSES: 2+ radial Lines, Drains, and Airways Line Duration Peripheral 09/07/232047 [facility] Short Right Antecubital 20 Gauge <1 day Reviewed lines and needs to be continued: REASONS: Telemetry and Electrolyte replacement DATA: Diagnostic tests reviewed for today's visit: Most recent labs Most recent imaging Assessment/Plan Problem List Intractable pain (POA: Yes) Primary hypertension (POA: Yes) S/P lumbar fusion (POA: Yes) Edema of both lower extremities (POA: Yes) 68 year old male with past medical history of HTN, and prior lumbar stenosis s/p laminectomies, most recently s/p L2-5 OLIF (08/19/23, Dr. Keith), who presents with worsening BLE edema and pain. # Intractable pain # Lumbar stenosis s/p laminectomies, most recently s/p L2-5 OLIF (08/19/23, Dr. Keith) # Bilateral foot drop PLAN: - Neurosurgery note appreciated - Continue with Steroid tapering - Start Gabapentin 300mg tid - Tylenol 1000mg Q8 - Add voltaren gel. - Continue with Zanaflex 4mg tid prn - increased Oxycodone to 10mg q6h prn - Can consider adding Toradol once off steroids. - PT/OT consulted # Bilateral lower extremities edema No h/o CHF, renal failure or liver disease Likely salt and water retention from steroid, could be aggravated by inactivity post surgery resulting dependent edema PLAN: - might need short course of diuretics while on steroid - Add compression stocking today - Can redose lasix tomorrow if needed. # HTN - BP stable - continue with home Coreg 12.5mg bid Medication and Non-Pharmacologic VTE Prophylaxis/Anticoagulants Anticoagulant AND Antiplatelet Medications (From admission, onward) Start Dose Route Frequency Last Action Ordered Stop 09/08/23 0130 heparin 5,000 Units injection (Medical Risk Categories) 5,000 Units SUBCUTANEOUS EVERY 12 HOURS Given, 09/07 0134 09/08/23 0122 -- 09/08/23 0130 activity - mobilize patient ([place]) VTE Prophylaxis: VTE prophylaxis appropriate Disposition: To be determined Plan of care discussed with Provider, RN, Patient Plan communicated to: Patient prefers to communicate with family. SIGNATURE: Christine Washington PA-C PATIENT NAME: Braden Rodriguez DATE: September 08, 2023 TIME: 2:00 PM [facility] 09-05-2023 Telephone encounter Note Script was sent on 09/03. [facility] 09-05-2023 Miscellaneous Notes Script was sent on 09/03. documented in this encounter [facility] 09-04-2023 Telephone encounter Note Pt has an order that is from PA. [facility]. Marianne from [facility] called and said pt was refusing Home Health. I did as her to call the ordering PA, she wanted it noted in his chart here, as well [facility] 09-04-2023 Miscellaneous Notes Pt has an order that is from PA. Arianne [facility]. Marianne from [facility] called and said pt was refusing Home Health. I did as her to call the ordering PA, she wanted it noted in his chart here, as well documented in this encounter [facility] 09-02-2023 Telephone encounter Note Patient phones requesting refills as follows: Requested Prescriptions Pending Prescriptions Disp Refills oxyCODONE IR (ROXICODONE) 5 mg immediate release tablet 42 tablet 0 Sig: Take 1 tablet by mouth every 4 hours for 7 days. Last visit: 08/29/2023 Pharmacy: [facility], [id number] Pharmacy Current Dosage: Patient is currently taking 1 tab every 4 hrs; Has enough for several days left. Please review and advise; ph: [phone] Tara Mix [facility] 09-02-2023 Miscellaneous Notes Patient phones requesting refills as follows: Requested Prescriptions Pending Prescriptions Disp Refills oxyCODONE IR (ROXICODONE) 5 mg immediate release tablet 42 tablet 0 Sig: Take 1 tablet by mouth every 4 hours for 7 days. Last visit: 08/29/2023 Pharmacy: [facility], [id number] Pharmacy Current Dosage: Patient is currently taking 1 tab every 4 hrs; Has enough for several days left. Please review and advise; ph: [phone] Tara Gavi Mix documented in this encounter [facility] 09-01-2023 Telephone encounter Note Returned call to patient to further discuss his my chart message. Right foot drop has not improved since hospital discharge. (Left foot drop existed before surgery) Patient states his right leg feels weaker now than while in the hospital. He is able raise his leg against gravity. Feels the weakness only when standing. Pain is still a problem. Discussed spacing out medication to help with pain control coverage. He voiced understanding and will try this. Will review with Dr Keith and follow up. [facility] 09-01-2023 Miscellaneous Notes Returned call to patient to further discuss his my chart message. Right foot drop has not improved since hospital discharge. (Left foot drop existed before surgery) Patient states his right leg feels weaker now than while in the hospital. He is able raise his leg against gravity. Feels the weakness only when standing. Pain is still a problem. Discussed spacing out medication to help with pain control coverage. He voiced understanding and will try this. Will review with Dr Keith and follow up. documented in this encounter [facility] 08-29-2023 Telephone encounter Note Returned call to pharmacy. Kroi Loyd did speak to patient regarding stopping the Brocton and taking Oxy. Also getting his pain medication through us during this post op time period. He voiced appreciation. No further questions. [facility] 08-29-2023 Miscellaneous Notes Returned call to pharmacy. Kori Bean Severino did speak to patient regarding stopping the Brocton and taking Oxy. Also getting his pain medication through us during this post op time period. He voiced appreciation. No further questions. Call received for Katherine Keith MD regarding Braden Simthr. Caller: Viviane Hopkins [facility] Patient Identified by Name and : Yes Reason for Call: General Question Pharmacist called about refill request for Oxycodone, He had just filled one 4 days ago and the a prescription for Narco. Concerned, about the amount of narcotics. Please advise. Is there any additional information the provider should know? No Last Office Visit: 08/01/2023 Next scheduled appointment: 10/08/2023 Best number to reach caller: [phone] Best time to reach caller: any Is it OK to leave a detailed voice message? Yes Winnie Quesada documented in this encounter [facility] 08-29-2023 Telephone encounter Note Call received for Katherine Keith MD regarding Braden Smithr. Caller: Viviane Hopkins [facility] [place] Patient Identified by Name and : Yes Reason for Call: General Question Pharmacist called about refill request for Oxycodone, He had just filled one 4 days ago and the a prescription for Narco. Concerned, about the amount of narcotics. Please advise. Is there any additional information the provider should know? No Last Office Visit: 08/01/2023 Next scheduled appointment: 10/08/2023 Best number to reach caller: [phone] Best time to reach caller: any Is it OK to leave a detailed voice message? Yes Winnie Quesada [facility] 08-29-2023 Note HNO ID: [id number] Author: ALFONSO LOYD PA-C Service: ? Author Type: Physician Mold Washer Type: Progress Notes Filed: 08/29/2023 08:50 Note Text: SPINE SURGERY FOLLOW UP This is a virtual visit using [employer] Video Visit. It required patient-provider interaction for the medical decision making as documented below. I have communicated my name and active licensure. The patient's identity and physical location were verified at the time of this visit. Either the patient or their legal guest service representative has been informed of the risks and benefits of -- and alternatives to -- treatment through a remote evaluation and consents to proceed with the evaluation remotely. SERVICE DATE: 08/29/2023 SURGERY DATE: 08/19/23 SURGERY/PROCEDURE(S): L2-L3 oblique interbody fusion L3-L4 oblique [...] robot for pedicle screw placement and planning Seen virtually for 2 week operative appointment. Since surgery he has continued to have bilateral drop foot (left baseline and right developed after surgery). He continues to use steroids. He saw his local PCP regarding swelling in the legs and US was negative. They started him on lasix and it has improved. Symptoms are slowly improving. Post operative pain is now more tolerable. Using Brocton from his PCP which is not as helpful as the Roxicodone was. Using Zanaflex which helps with the low back pain. Incision is healing well without any complications. Patient Entered Questionnaires 04/28/2023 Spine Questions Pain Location: Leg Pain Duration: 1-3 months Symptoms from neck/cervical spine: No Employment Status: Sick leave or maternity leave Off work 1 month or more due to back/neck pain: Yes Applied for/receive disability/WC due to low back/neck pain Yes Involved in law suit/legal claim: No PROMIS Score Percentiles 04/28/2023 Physical Health Physical Function Percentile 2 Sleep Percentile 38 Fatigue Percentile 16* Pain Interference Percentile 7 04/28/2023 PROMIS SOCIAL ROLE SCORE Social Role Satisfaction Percentile 5 04/28/2023 07/30/2023 PROMIS Global Health Scale Physical Health Percentile 15 22* Mental Health Percentile 9 19* Percentiles provide an indication of how the patient's score ranks in relation to the general population. Higher percentile rankings indicate better function/quality of life. 50th percentile is the average of the general population and indicates half of respondents had a worse score. Depression Screenin04/28/2023 PHQ-9 Score 7 04/28/2023 PHQ-9 Self-harm Question Question 9 Not at all PHQ-9 Self-Harm (Item 9) response options: 0 Not at all 1 Several days 2 More than half the days 3 Nearly every day PHQ-9 Levels: 0-4 No to mild depression 5-9 Mild depression 10-14 Moderate depression 15-19 Moderately severe depression 20-27 Severe depression PHYSICAL EXAM: There were no vitals taken for this visit. Virtual visit DATA REVIEW [facility] records independently reviewed ASSESSMENT/PLAN (G89.18) Acute post-operative pain Seen virtually for post operative check in. He developed a right foot drop after surgery. Revision was discussed but he wanted to hold off and see if it improved with time. He continues to have bilateral foot drop (left baseline). Post operative pain is slowly improving. Did an US with his PCP which was negative for DVT. He was started on Lasix which is helping with the swelling in his legs. His PCP filled his lat prescription for Brocton which is not providing relief. We discussed stopping and restarting the Roxicodone every 4 hours, refill provided. He will continue to use Zanaflex which helps better than the Robaxin. Incision is healing well. Follow up with Dr. Keith at 6 weeks. He will call with any changes. The majority of the visit was spent counseling and/or coordinating care for the patient. Total face to face time was 30 minutes. SIGNATURE: Alfonso Loyd PA-C PATIENT NAME: Braden Rodriguez DATE: August 29, 2023 TIME: 8:20 AM PAGER: [facility] 08-29-2023 History of Presen t illness Narrative SPINE SURGERY FOLLOW UP This is a virtual visit using [employer] Video Visit. It required patient-provider interaction for the medical decision making as documented below. I have communicated my name and active licensure. The patient's identity and physical location were verified at the time of this visit. Either the patient or their legal guest service representative has been informed of the risks and benefits of -- and alternatives to -- treatment through a remote evaluation and consents to proceed with the evaluation remotely. SERVICE DATE: 08/29/2023 SURGERY DATE: 08/19/23 SURGERY/PROCEDURE(S): L2-L3 oblique interbody fusion L3-L4 oblique [...] robot for pedicle screw placement and planning Seen virtually for 2 week operative appointment. Since surgery he has continued to have bilateral drop foot (left baseline and right developed after surgery). He continues to use steroids. He saw his local PCP regarding swelling in the legs and US was negative. They started him on lasix and it has improved. Symptoms are slowly improving. Post operative pain is now more tolerable. Using Brocton from his PCP which is not as helpful as the Roxicodone was. Using Zanaflex which helps with the low back pain. Incision is healing well without any complications. Patient Entered Questionnaires 04/28/2023 Spine Questions Pain Location: Leg Pain Duration: 1-3 months Symptoms from neck/cervical spine: No Employment Status: Sick leave or maternity leave Off work 1 month or more due to back/neck pain: Yes Applied for/receive disability/WC due to low back/neck pain Yes Involved in law suit/legal claim: No PROMIS Score Percentiles 04/28/2023 Physical Health Physical Function Percentile 2 Sleep Percentile 38 Fatigue Percentile 16* Pain Interference Percentile 7 04/28/2023 PROMIS SOCIAL ROLE SCORE Social Role Satisfaction Percentile 5 04/28/2023 07/30/2023 PROMIS Global Health Scale Physical Health Percentile 15 22* Mental Health Percentile 9 19* Percentiles provide an indication of how the patient's score ranks in relation to the general population. Higher percentile rankings indicate better function/quality of life. 50th percentile is the average of the general population and indicates half of respondents had a worse score. Depression Screenin04/28/2023 PHQ-9 Score 7 04/28/2023 PHQ-9 Self-harm Question Question 9 Not at all PHQ-9 Self-Harm (Item 9) response options: 0 Not at all 1 Several days 2 More than half the days 3 Nearly every day PHQ-9 Levels: 0-4 No to mild depression 5-9 Mild depression 10-14 Moderate depression 15-19 Moderately severe depression 20-27 Severe depression PHYSICAL EXAM: There were no vitals taken for this visit. Virtual visit DATA REVIEW [facility] records independently reviewed ASSESSMENT/PLAN (G89.18) Acute post-operative pain Seen virtually for post operative check in. He developed a right foot drop after surgery. Revision was discussed but he wanted to hold off and see if it improved with time. He continues to have bilateral foot drop (left baseline). Post operative pain is slowly improving. Did an US with his PCP which was negative for DVT. He was started on Lasix which is helping with the swelling in his legs. His PCP filled his lat prescription for Brocton which is not providing relief. We discussed stopping and restarting the Roxicodone every 4 hours, refill provided. He will continue to use Zanaflex which helps better than the Robaxin. Incision is healing well. Follow up with Dr. Keith at 6 weeks. He will call with any changes. The majority of the visit was spent counseling and/or coordinating care for the patient. Total face to face time was 30 minutes. SIGNATURE: Alfonso Loyd PA-C PATIENT NAME: Braden Rodriguez DATE: August 29, 2023 TIME: 8:20 AM PAGER: documented in this encounter [facility] 08-22-2023 Note HNO ID: [id number] Author: JUSTIN BEE CPhT Service: Pharmacy Author Type: Drawbench Operator Helper Type: Plan of Care Filed: 08/22/2023 12:33 Note Text: PHARMACY BEDSIDE DELIVERY SERVICE Patient Name: Braden Rodriguez The marked outpatient medications were Filled at: [facility] and delivered to the patient's bedside [...] known as: ZANAFLEX Justin Bee CPhT PAGER: [phone] August 22, 2023 12:32 PM [facility] 08-21-2023 Note HNO ID: [id number] Author: SAE HOSKINS ? Service: Pharmacy Author Type: Drawbench Operator Helper Type: Plan of Care Filed: 08/21/2023 16:02 Note Text: Insurance investigation completed Patient has active prescription insurance: Yes - Patient's insurance is in-network with [facility] Insurance loaded into [employer]: Yes Test claim was completed to verify insurance is active: Successful Any questions, please contact your medication identity access management architect. Pager #: [phone] [facility] 08-21-2023 Note HNO ID: [id number] Author: CHILANGO COTTO PA-C Service: Neurosurgery Author Type: Physician Mold Washer Type: Progress Notes Filed: 08/21/2023 10:31 Note Text: SERVICE DATE: 08/21/2023 SERVICE TIME: 10:30 AM SPINE SURGERY TEAM PROGRESS NOTE After 6 PM (1800) please page Haley Floyd PA-C [phone], backup pager [phone]. Attending: Katherine Hogue MD Location: [id number] [id number]/[id number] [...] BICEPS TRICEPS DELTS Wrist Ext Wrist Flex Information Technology Manager HI R 5/5 5/5 5/5 5/5 5/5 [...] and Airways Line Duration Peripheral 08/19/23 0906 [facility] Short Right Forearm 20 Gauge 2 days Peripheral 08/19/23 1150 [facility] Short Left Forearm 16 Gauge 1 day [...] heparin 5,000 Un (more content not included)... [facility] 08-20-2023 Note HNO ID: [id number] Author: NEREIDA MARQUES RT(R) Service: Radiology Author Type: Criminal Justice Professor Type: Progress Notes Filed: 08/20/2023 22:24 Note [...] PATIENT PRESENTS WITH AN IMPLANTABLE OR ATTACHED OFFICE AUDITOR: No RADIOLOGY DEPARTMENT: MR; Exam(s) Completed: Spine: Lumbar spine PERIPHERAL IV DATA: Not applicable SIGNED BY: RT Indra(R) August 20, 2023 10:23 PM [facility] 08-20-2023 Note HNO ID: [id number] Author: CHILANGO COTTO PA-C Service: Neurosurgery Author Type: Physician Mold Washer Type: Progress Notes Filed: 08/20/2023 11:04 Note Text: SERVICE DATE: 08/20/2023 SERVICE TIME: 11:04 AM SPINE SURGERY TEAM PROGRESS NOTE After 6 PM (1800) please page Haley Floyd PA-C [phone] or Oly Rowe PA-C [phone], backup pager [phone]. Attending: Katherine Hogue MD Location: [id number]/[id number] [...] BICEPS TRICEPS DELTS Wrist Ext Wrist Flex Information Technology Manager HI R 5/5 5/5 5/5 5/5 5/5 [...] and Airways Line Duration Peripheral 08/19/23 0906 [facility] Short Right Forearm 20 Gauge 1 day Peripheral 08/19/23 1150 [facility] Short Left Forearm 16 Gauge <1 day Drain Duration Indwelling Urinary Catheter 08/19/23 1200 [facility] 16 Fr <1 day D/c romero catheter Current restraint orders: None Assessment AND Plan Active Hospital Problems as of 08/20/2023 Noted - Resolved POA Hospital Primary hypertension 08/06/2023 - Present Yes Current Assessment AND Plan Assessment: POA PLAN: -Resume coreg SVT (supraventricular tachycardia) ([facility]) 08/06/2023 - Present Yes Current Assessment AND [...] foot drop Medi (more content not included)... [facility] 08-20-2023 Note HNO ID: [id number] Author: STEPAN ROSALES RT(R) Service: Radiology Author [...] PATIENT PRESENTS WITH AN IMPLANTABLE OR ATTACHED OFFICE AUDITOR: No RADIOLOGY DEPARTMENT: CT; Exam(s) Completed: Spine PERIPHERAL IV DATA: Not applicable SIGNED BY: RT Tucker(R) August 20, 2023 9:35 AM [facility] 08-20-2023 Note HNO ID: [id number] Author: SCHUYLER GOFF MD Service: Neurosurgery Author [...] well, pain well controlled, denies n/v/cp/sob VITALS: 08/19/23201408/19/23205608/20/239 08/20/23512 BP: 142/66 146/71 134/72 150/68 Pulse: 79 [...] Flexion Arm Extension Wrist Ext Wrist Flex Information Technology Manager HI R 5 5 5 5 5 [...] and Airways Line Duration Peripheral 08/19/23 0906 [facility] Short Right Forearm 20 Gauge <1 day Peripheral 08/19/23 1150 [facility] Short Left Forearm 16 Gauge <1 day [...] Patient. Schuyler Goff MD PGY-1 Orthopaedic Surgery [facility] C: [phone] - [facility] message me for any questions or concerns [facility] 08-19-2023 Note HNO ID: [id number] Author: SCHUYLER GOFF MD Service: Neurosurgery Author [...] Flexion Arm Extension Wrist Ext Wrist Flex Information Technology Manager HI R 5 5 5 5 5 [...] Schuyler Goff MD Orthopaedic Surgery PGY-1 For [facility] floor related issues [place], [place] [phone] If unable to reach the PA team between 6 am and 5 pm, please page me at [phone] At all other times, or if urgent, please page the orthopaedic on-call resident at: [phone] ([phone]) for [facility] patients [phone] for [facility] patients [phone] for [facility] patients [phone] for [facility] patients [phone] for [facility] patients [facility] 08-19-2023 Note HNO ID: [id number] Author: AGATA MCLEOD MD Service: ? 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 Staffing Anesthesiologist: [...] August 19, 2023 TIME: 12:30 PM CSN: [id number] [facility] 08-19-2023 Note HNO ID: [id number] Author: SCHUYLER GOFF MD Service: Neurosurgery Author [...] BICEPS TRICEPS DELTS Wrist Ext Wrist Flex Information Technology Manager HI R 5 5 5 5 5 [...] Goff MD Orthopaedic Surgery PGY-1 For [facility] floor related issues [place], [place] [phone] If unable to reach the PA team between 6 am and 5 pm, please page me at [phone] At all other times, or if urgent, please page the orthopaedic on-call resident at: [phone] ([phone]) for [facility] patients [phone] for [facility] patients [address] for [facility] patients [phone] for [facility] patients [phone] for [facility] patients [facility] 08-11-2023 Telephone encounter Note CM was able to leave a brief detailed message on identifed vm requesting call back to discuss post op care. CM provided contact information. [facility] 08-11-2023 Miscellaneous Notes AYANA was able to leave a brief detailed message on identifed vm requesting call back to discuss post op care. AYANA provided contact information. documented in this encounter [facility] 08-10-2023 Note HNO ID: [id number] Author: SHARIF VERAS RN Service: ? Author Type: Registered Nurse Type: Progress Notes Filed: 08/10/2023 10:56 Note Text: Patient referred to Blood Management for pre-surgical optimization. Hgb 15.1 which exceeds Blood Management guidelines for intervention. [facility] 08-10-2023 History of Presen t illness Narrative Patient referred to Blood Management for pre-surgical optimization. Hgb 15.1 which exceeds Blood Management guidelines for intervention. documented in this encounter [facility] 08-06-2023 History and physical note HISTORY [...] over the last year. Relieving factors include Brocton and steroids. Aggravating factors include repetitive movement. [...] fevers. Neuro: No history of TIA's, stroke, CAKE DECORATOR tumor, impaired sensorium, hemiplegia, paraplegia or quadraplegia. No neurological symptoms or problems. Respiratory: No history of current cough or dyspnea, or pneumonia in the past 6 weeks. No history of respiratory/pulmonary symptoms or problems. Cardiovascular:+htn, SVT Negative for Recent [place], Angina, CAD, Chest Pain GI: No history [...] Braden Rodriguez DATE: 08/06/2023 TIME: 10:18 AM [facility] 08-06-2023 History and physical note HISTORY [...] over the last year. Relieving factors include Brocton and steroids. Aggravating factors include repetitive movement. [...] age 12+ yr, monovalent ([facility] [facility]) 06/09/2020 Imm Admin: COVID-19 original vaccine, age 12+ yr, monovalent (PFI[employer]ER-[employer]IONTE[employer] - [employer]) 05/19/2020 Imm Admin: COVID-19 original vaccine, age 12+ yr, monovalent ([facility]TECH - [facility]) REVIEW OF SYSTEMS: PAIN ASSESSMENT: Pain Pain Level: 5 Pain Location: Leg-Left Description: Aching, Burning, Cramping, Numbness, Pulsating, Raw, Sharp, Shooting, Spasm, Throbbing, Tingling Duration Amount of Time: 5 Duration Units: Months Frequency: Continuous Intervention/Comfort measure: Medication General: No weight loss, malaise or fevers. Neuro: No history of TIA's, stroke, CAKE DECORATOR tumor, impaired sensorium, hemiplegia, paraplegia or quadraplegia. No neurological symptoms or problems. Respiratory: No history of current cough or dyspnea, or pneumonia in the past 6 weeks. No history of respiratory/pulmonary symptoms or problems. Cardiovascular:+htn, SVT Negative for Recent [place], Angina, CAD, Chest Pain GI: No history [...] Specific Question: Does consulting provider have [facility] access? Answer: Yes Type and Screen, [...] TIME: 10:18 AM documented in this encounter [facility] 08-01-2023 Telephone encounter Note Duplicate, patient already spoke to RN (see phone encounter). [facility] 08-01-2023 Miscellaneous Notes Duplicate, patient already spoke to RN (see phone encounter). documented in this encounter [facility] 08-01-2023 Telephone encounter Note Patient accepts sooner date of 08/18 New education class on 08/11 at 2 PM Will change post ops He voiced appreciation. No further questions. [facility] 08-01-2023 Miscellaneous Notes Patient accepts sooner date of 08/18 New education class on 08/11 at 2 PM Will change post ops He voiced appreciation. No further questions. Patient is returning nurse call pertaining to below message, sooner appt call back [phone] Called patient to offer sooner surgery date Left message to return call to the office documented in this encounter [facility] 08-01-2023 Telephone encounter Note Patient is returning nurse call pertaining to below message, sooner appt call back [phone] [facility] 08-01-2023 Instructions Sanam Gill PA-C - 08/01/2023 9:35 AM EDT PATIENT PREOPERATIVE INSTRUCTIONS Katherine Keith MD has scheduled you for your procedure at this surgery center: [facility] Scheduling Office: [phone] --[address] [place] [address]. Please read below carefully for your personalized instructions. Arrival Time for Surgery: - To obtain your arrival time for surgery, call your physician's office the day before your surgery. - If your surgery is scheduled for Friday, call the Friday before. Your surgeon s senior software project manager will tell you what time to call the office. - If you have not reached the departmental senior software project manager by 5 P.M., call [phone] after 5 P.M. the day before your [...] Advance Directive, please fax a copy to [phone] or email to for it to be [...] Sanam Gill PA-C documented in this encounter [facility] 08-01-2023 Telephone encounter Note Called patient to offer sooner surgery date Left message to return call to the office [facility] 07-14-2023 Telephone encounter Note Received, Reviewed Jamey Disability Attending Physician Statement [employer] forms and need signed by Dr. Keith Sent to Dr. Keith via [employer] for signature Leave dates: 09/02/23-11/07/23 No Post op appt scheduled as of yet. Alyssa Maldonado LPN [facility] 07-14-2023 Miscellaneous Notes Received, Reviewed Jamey Disability Attending Physician Statement [employer] forms and need signed by Dr. Keith Sent to Dr. Keith via [employer] for signature Leave dates: 09/02/23-11/07/23 No Post op appt scheduled as of yet. Alyssa Maldonado LPN documented in this encounter [facility] 06-12-2023 Miscellaneous Notes Neuro SPINE CARE COORDINATION QUICK NOTE Called patient to discuss disability paperwork. His PCP has completed his previous STD paperwork Patient is not scheduled for surgery until August. Discussed this office will be able to complete his disability paperwork postop Advised to reach out to his PCP to continue with disability until surgery. Patient states [employer] only needs office note. This office will fax over the office note from 04/30 No further questions. I received [employer] forms for LTD. I called patient to explain we don't complete LTD, but he stated that he is not currently working and have exhausted his STD. He states the form is due 06/12/23. Sending to CC. Oliver to review Received Attending Physician's Statement from [employer]. Sent via [employer] for processing. documented in this encounter [facility] 05-29-2023 Miscellaneous Notes Neuro SPINE CARE [...] non-home discharge disposition : Low [5.2] Wellington Castaneda, RN Surgery Planning Name: Braden Rodriguez Age: [...] Dr. Katherine Keith:04/30 Please schedule PAT for [place] the week of 08/04. Please schedule pre [...] X Education [facility] X Urology/CT Lumbar N/A TREK/ N/A documented in this encounter [facility] 05-13-2023 Note HNO ID: [id number] Author: KARAN FERNANDO MD Service: ? Author [...] Care Visit completed when applicable. Blanca Cain, [facility] Tech Karan Fernando MD [facility] 05-04-2023 History of Presen t illness Narrative [...] PATIENT PRESENTS WITH AN IMPLANTABLE OR ATTACHED OFFICE AUDITOR: No RADIOLOGY DEPARTMENT: CT; Exam(s) Completed: Spine PERIPHERAL IV DATA: Not applicable SIGNED BY: MARY Gomes) May 04, 2023 8:09 AM documented in this encounter [facility] 05-04-2023 Note HNO ID: [id number] Author: BLANCA PRICE RT (R) Service: Radiology [...] PATIENT PRESENTS WITH AN IMPLANTABLE OR ATTACHED OFFICE AUDITOR: No RADIOLOGY DEPARTMENT: CT; Exam(s) Completed: Spine PERIPHERAL IV DATA: Not applicable SIGNED BY: MARY Gomes) May 04, 2023 8:[address] [facility] 04-30-2023 History of Presen t illness [...] PATIENT PRESENTS WITH AN IMPLANTABLE OR ATTACHED OFFICE AUDITOR: No RADIOLOGY DEPARTMENT: General X-ray: Exam(s) Completed: Spine X-Ray(s): Scoliosis Series PERIPHERAL IV DATA: Not applicable SIGNED BY: RT Jimbo(Michael) April 30, 2023 1:42 PM documented in this encounter [facility] 04-30-2023 Note HNO ID: [id number] Author: CHERYL MENCHACA RT(Michael) Service: Radiology Author Type: Technologist Type: Progress [...] PATIENT PRESENTS WITH AN IMPLANTABLE OR ATTACHED OFFICE AUDITOR: No RADIOLOGY DEPARTMENT: General X-ray: Exam(s) Completed: Spine X-Ray(s): Scoliosis Series PERIPHERAL IV DATA: Not applicable SIGNED BY: RT Jimbo(Michael) April 30, 2023 1:42 PM [facility] 04-30-2023 Note HNO ID: [id number] Author: KATHERINE KEITH MD Service: ? Author [...] Ester Cain MD REFERRING PROVIDER: Tello Gaspar [id number] [facility]opa[facility] Specialties [place] [id number] Consult requested for an opinion regarding the [...] a revision at (more content not included)... [facility] 04-30-2023 History of Presen t illness Narrative [...] Ester Cain MD REFERRING PROVIDER: Tello Gaspar [address] [facility] Orthopaedics [place] [id number] Consult requested for an opinion regarding the [...] the plans as outlined in this note. Jna Leon MD Fellow SIGNATURE: Katherine Keith MD PATIENT NAME: Braden Rodriguez DATE: April 30, 2023 TIME: 11:51 AM PAGER: documented in this encounter [facility] 04-30-2023 History of Presen t illness [...] PATIENT PRESENTS WITH AN IMPLANTABLE OR ATTACHED OFFICE AUDITOR: No RADIOLOGY DEPARTMENT: General X-ray: Exam(s) Completed: Spine X-Ray(s): Lumbar AP / LAT / L5-S1 / FLEX-EXT PERIPHERAL IV DATA: Not applicable SIGNED BY: RT Guillermo(R) April 30, 2023 10:47 AM documented in this encounter [facility] 04-30-2023 Note HNO ID: [id number] Author: RIN MAYBERRY RT(R) Service: Radiology Author [...] PATIENT PRESENTS WITH AN IMPLANTABLE OR ATTACHED OFFICE AUDITOR: No RADIOLOGY DEPARTMENT: General X-ray: Exam(s) Completed: Spine X-Ray(s): Lumbar AP / LAT / L5-S1 / FLEX-EXT PERIPHERAL IV DATA: Not applicable SIGNED BY: RT Guillermo(Michael) April 30, 2023 10:47 AM [facility] 03-21-2023 Note HNO ID: [id number] Author: ALFONSO LOYD PA-C Service: ? Author Type: Physician Mold Washer Type: Progress Notes Filed: 03/21/2023 05:56 Note Text: Requesting to see Dr. Keith Left leg pain, trouble walking, numbness in the leg, weakness. He has tried: PT, NSAID, steroids, MR, Tramadol Previous surgery x 3 at [place] Lumbar MRI report with severe central stenosis of L3-4 and L4-5. XR ordered for an appointment with Dr. Keith. [facility] 03-21-2023 History of Presen t illness Narrative Requesting to see Dr. Keith Left leg pain, trouble walking, numbness in the leg, weakness. He has tried: PT, NSAID, steroids, MR, Tramadol Previous surgery x 3 at [place] Lumbar MRI report with severe central stenosis of L3-4 and L4-5. XR ordered for an appointment with Dr. Keith. Patient name: Braden Rodriguez Are you being referred by a Center for Spine Health Provider or Pain Management Provider at [facility]? No If answer is YES please [...] where the MRI/CT/myelogram was completed: [facility] [place] [address] [place] [address] MRI/CT/myelogram viewable in Epic: No If not, please provide [phone] to fax in imaging reports for review. Also, please inform patient to hand carry imaging disc to appointment. XR (spine) within 12 months: Yes If YES, please ask for the name/address of the facility where the XR was completed: Dr. Tello Gaspar MD [address], [place] [address] Dr. Davis's patients: Have you had previous [...] completed Starting PT 03/20/2023 for drop foot [facility] [address] [place] [address] Have you tried any other kinds of [...] where the surgery was completed: 1999 laminectomy [place] 2012 lumbar surgery [place] 2019 lumbar surgery [place] [facility] Additional Comments [phone] documented in this encounter [facility] 03-19-2023 Note HNO ID: [id number] Author: ?, ?, ? Service: ? Author Type: ? Type: Progress Notes Filed: 03/21/2023 05:56 Note Text: Patient name: Braden Rodriguez Are you being referred by a [facility] Spine Health Provider or Pain Management Provider at [facility]? No If answer is YES please [...] where the MRI/CT/myelogram was completed: MRI [facility] [address] [place] [id number] MRI/CT/myelogram viewable in Epic: No If not, please provide [phone] to fax in imaging reports for review. Also, please inform patient to hand carry imaging disc to appointment. XR (spine) within 12 months: Yes If YES,? please ask for the name/address of the facility where the XR was completed: Dr. Tello Gaspar MD [address], [place] [address] Dr. Davis's patients: Have you had previous [...] Starting PT 03/20/2023 for drop foot [facility] [place] [address] [place] [address] Have you tried any other kinds of [...] where the surgery was completed: 1999 laminectomy [place] 2012 lumbar surgery [place] 2019 lumbar surgery [place] Additional Comments [phone] [facility] 12-05-2022 Hospital Discharg e instructions Patient Education [...] treatment? Where to find more information The [employer]: www.cancer.org [employer] Association: www.auanet.org Contact a health care [...] Document Reviewed: 08/20/2021 Elsevier Patient Education 2022 CyberSense. Follow Up Care 11/27/2022 14:43:00 With:Kahlil JERNIGAN, MARLENA Salmon, URO Address: When: Unknown [facility] 10-30-2022 Hospital Discharg e instructions [...] treatment? Where to find more information The [employer]: www.cancer.org [employer] U[employer] Association: www.auanet.org Contact a health care [...] provider. Document Revised: 08/20/2021 Document Reviewed: 08/20/2021 Enohm Patient Education 2022 TimeGenius Follow Up Care 09/04/2022 08:48:35 With:Kahlil JERNIGAN, MARLENA Salmon, URO Address: When:Within 2 Month(s) Comments:w/PSA [facility] 09-04-2022 Hospital Discharg e instructions Patient Education [...] treatment? Where to find more information The [employer] Society: www.cancer.org [employer] U[employer] Association: www.auanet.org Contact a health care [...] provider. Document Revised: 08/20/2021 Document Reviewed: 08/20/2021 Enohm Patient Education 2022 [employer]Sense. Follow Up Care 08/26/2022 10:02:45 With:Kahlil JERNIGAN, Shae Powell URL, URO Address: When:Within 4 Week(s) Comments:w/ PSA [facility] 05-07-2022 Hospital Discharg e instructions Follow Up Care 05/07/2022 15:08:01 With:Camryn AGUSTIN MD, SUR Address: [address] [place] [address] [place] [address]- When: only if needed General [facility] 04-29-2022 Note Patient: LISETTE RODRIGUEZ Age: 67 years Sex: Male : 1955 Associated Diagnoses: None Author: Camryn AGUSTIN MD Subjective no changes to H & P [facility] Comment on above: Result Comment: Elec tronically Signed By: Camryn AGUSTIN MD\.br\Date and Time Signed: 04/29/22 08:33 EST 04-16-2022 Note [id number]:[id number] [facility] 04-03-2022 Note Chief Complaint consultation for ventral hernia HPI Staff 67 year old male presents on consultation from [facility] for ventral hernia. Presented to ED [...] htn, lumbar radiculopathy, h/o SVT, referred from [facility] ED for possible abd wall hernia; [...] Daily, Not taki (more content not included)... [facility] Comment on above: Result Comment: Elec tronically Signed By: Camryn AGUSTIN MD\.br\Date and Time Signed: 04/03/22 16:28 EST Evaluation + Plan note No data available for this section General Surgery [facility] Evaluation + Plan note Future Appointments Appointment Date:05/21/2022 02:40:00 PM Scheduled Provider:Camryn AGUTSIN MD Location:[facility] Appointment Type: Post Op 15 General Surgery [facility] Evaluation + Plan note Future Appointments Appointment Date:09/24/2022 01:40:00 PM Scheduled Provider:Camryn AGUSTIN MD Location:[facility] Appointment Type:[place] [id number] Appointment Date:09/25/2022 08:45:00 AM Scheduled Provider:Shae Guillory MD Location:[facility] Appointment Type:URO Office Visit Diagnostic Tests PendingPSA Total 09/04/22PSA Free & Total 09/04/22 [facility] Evaluation + Plan note Future Appointments Appointment Date:01/08/2023 09:00:00 AM Scheduled Provider:Shae Guillory MD Location:[facility] Appointment Type:URO Office Visit Diagnostic Tests PendingPSA Free & Total 10/30/22 [facility] Evaluation + Plan note Future Appointments Appointment Date:04/23/2023 09:45:00 AM Scheduled Provider:Shae Guillory MD Location:[facility] Appointment Type:URO Office Visit Diagnostic Tests PendingPSA Free & Total 12/05/22 [facility] Evaluation note No assessment inform ation available [facility] Work Phone: Evaluation note Diagnosis Spinal stenosis, lumbar region with neurogenic claudication- Primary [facility] Diagnosis History of lumbar laminectomy for spinal cord decompression Other postprocedural status Degenerative scoliosis in adult patient Chronic low back pain, unspecified back pain laterality, unspecified whether sciatica present [facility] Diagnosis Spinal stenosis, lumbar region with neurogenic claudication [facility] Diagnosis Chronic low back pain, unspecified back pain laterality, unspecified whether sciatica present [facility] Diagnosis History of lumbar laminectomy for spinal cord decompression- Primary Other postprocedural status Degenerative scoliosis in adult patient Chronic low back pain, unspecified back pain laterality, unspecified whether sciatica present documented in this encounter [facility] note* Diagnosis History of laminectomy- Primary Other postprocedural status Degenerative scoliosis in adult patient Pre-op testing Preoperative examination, unspecified Iron deficiency anemia, unspecified iron deficiency anemia type History of laminectomy Other postprocedural status Degenerative scoliosis in adult patient Pre-op testing Preoperative examination, unspecified documented in this encounter [facility] note* Diagnosis Pre-op exam- Primary Preoperative examination, unspecified Primary hypertension Unspecified essential hypertension SVT (supraventricular tachycardia) (HCC) Other specified cardiac dysrhythmias History of penicillin allergy Personal history of allergy to penicillin History of laminectomy Other postprocedural status Degenerative scoliosis in adult patient Pre-op testing Preoperative examination, unspecified documented in this encounter [facility] note* Diagnosis Acute post-operative pain documented in this encounter [facility] note* Diagnosis Acute post-operative pain documented in this encounter [facility] note* Diagnosis Acute post-operative pain documented in this encounter [facility] note* Diagnosis S/P lumbar fusion- Primary Arthrodesis status documented in this encounter [facility] note* Diagnosis S/P lumbar spinal fusion- Primary Arthrodesis status Pre-op testing Preoperative examination, unspecified S/P lumbar spinal fusion Arthrodesis status documented in this encounter [facility] note* Diagnosis S/P lumbar fusion Arthrodesis status S/P lumbar spinal fusion Arthrodesis status documented in this encounter [facility] note* Diagnosis S/P lumbar spinal fusion- Primary Arthrodesis status S/P lumbar spinal fusion Arthrodesis status documented in this encounter [facility] note* Diagnosis Post-op pain- Primary Other acute postoperative pain documented in this encounter [facility] note* Diagnosis Post-op pain Other acute postoperative pain documented in this encounter [facility] Discharge instructions No data available for this section [facility] Progress note No data available for this section [facility] Reason for referral (narrative)* Diagnostic Procedure Only (Routine) - Pending Review Specialty Diagnoses / Procedures Referred By Lencho t Referred To Contact XR IMAGING Diagnoses Spinal stenosis, lumbar region with neurogenic claudication Procedures XR LUMBAR MOTION 4V AP/LAT/ FLEX/EXT RADEX SPINE LUMBOSACRAL MINIMUM 4 VIEWS Alfonso Loyd PA-C [address] [place] [id number] Xr Imaging [facility]95 Referral ID Status Reason Start Date Expiration Date Visits Requested Visits Authorized [id number] Pending Review Auto-Generat ed Referral 03/21/2023 04/19/2024 1 1 Medical Center for referral (narrative)* Diagnostic Procedure Only (Routine) [...] SPI W/SKULL 2/3 VW Katherine Keith MD [address] [place] [id number] Xr Imaging [facility] Referral ID Status Reason Start Date Expiration Date V isits Requested Visits Authorized [id number] Closed Auto-Generate d Referral 04/30/2023 05/29/2024 1 1 Medical Center for referral (narrative)* Diagnostic Procedure Only (Routine) - Closed Specialty Diagnoses / Procedures Referred By Contac t Referred To Contact XR IMAGING Diagnoses Spinal stenosis, lumbar region with neurogenic claudication Procedures XR LUMBAR MOTION 4V AP/LAT/ FLEX/EXT RADEX SPINE LUMBOSACRAL MINIMUM 4 VIEWS Alfonso Loyd PA-C [address] [place] [address] Xr Imaging [facility]95 Referral ID Status Reason Start Date Expiration Date V isits Requested Visits Authorized [id number] Closed Auto-Generate d Referral 03/21/2023 04/19/2024 1 1 [facility] Out[facility] Procedure (Routine) - Pending Review Specialty Diagnoses / Procedures Referred By Contac t Referred To [facility] Diagnoses Pre-op exam Procedures ECG COMPLETE ECG ROUTINE ECG W/LEAST 12 LDS W/I&R Sanam Gill PA-C [address] [place] [address] [facility] [place] [address] [place] [address] Referral ID Status Reason Start Date Expiration Date Visits Requested Visits Authorized [id number] Pending Review Auto-Generat ed Referral 08/06/2023 08/05/2024 1 1 [facility] Summary Purpose Family History No Family History Records FoundNo Family History Records FoundNo Family History Records FoundNo Family History Records FoundNo Family History Records Found No data available for this section No Family History Records FoundNo Family History Records FoundNo Family History Records Found Advance Directives Date Activated Date Inactivated Comments 09/08/2023 1:22 AM 09/10/2023 7:51 PM Question Answer Comments Full Code Order Discussed With: Patient Advance Directive Response Recorded Date/ Time Advance Directives No October 01 3:21pm Date Activated Date Inactivated Comments 09/08/2023 1:22 AM Chief Complaint and Reason for Visit Chief Complaint r97.20 Reason for Referral Specialty Diagnoses / Procedures Referred By Contac t Referred To Contact Diagnoses History of laminectomy Degenerative scoliosis in adult patient Pre-op testing Procedures REFER TO PACC - PRE ANESTHESIA CONSULTATION CLINIC OFFICE/OUTPATIENT NEW HIGH MDM 60 MINUTES Alfonso Loyd PA-C [address] [place] [address] Referral ID Status Reason Start Date Expiration Date Visits Requested Visits Authorized [id number] Authorized PCP Requested Referral 07/11/2023 07/10/2024 1 1 Specialty Diagnoses / Procedures Referred By Facundoac t Referred To Contact XR IMAGING Diagnoses History of laminectomy Degenerative scoliosis in adult patient Procedures XR LUMBAR LIMITED 2V AP/LAT RADEX SPINE LUMBOSACRAL 2/3 VIEWS Alfonso Loyd PA-C [address] [place] [address] Xr Imaging [id number] Referral ID Status Reason Start Date Expiration Date Visits Requested Visits Authorized [id number] Pending Review Auto-Generat ed Referral 07/11/2023 08/09/2024 1 1 Specialty Diagnoses / Procedures Referred By Contac t Referred To Contact [facility] Diagnoses History of lumbar laminectomy for spinal cord decompression Degenerative scoliosis in adult patient Chronic low back pain, unspecified back pain laterality, unspecified whether sciatica present Procedures EMG(NEURO/NI) NERVE CONDUCTION STUDIES 9-[place] [address] [place] [address] [facility] [place] [address] [place] [address] Referral ID Status Reason Start Date Expiration Date Visits Requested Visits Authorized [id number] Authorized Auto-Generat ed Referral 05/06/2023 03/09/2024 1 1 Specialty Diagnoses / Procedures Referred By Contac t Referred To Contact CT IMAGING Diagnoses Chronic low back pain, unspecified back pain laterality, unspecified whether sciatica present Procedures CT LUMBAR SPINE WO IVCON CT LUMBAR SPINE W/O CONTRAST MATERIAL Katherine Keith MD [address] [place] [address] Ct Imaging [id number] Referral ID Status Reason Start Date Expiration Date V isits Requested Visits Authorized [id number] Closed Auto-Generate d Referral 04/30/2023 05/29/2024 1 [...] SPI W/SKULL 2/3 VW Katherine Keith MD [address] [place] [address] Xr Imaging [facility] Referral ID Status Reason Start Date Expiration Date V isits Requested Visits Authorized [id number] Closed Auto-Generate d Referral 04/30/2023 05/29/2024 1 1 Specialty Diagnoses / Procedures Referred By Contac t Referred To Contact CT IMAGING Diagnoses Chronic low back pain, unspecified back pain laterality, unspecified whether sciatica present Procedures CT LUMBAR SPINE WO IVCON CT LUMBAR SPINE W/O CONTRAST MATERIAL Katherine Keith MD [address] [place] [id number] Imaging [place] [address] Referral ID Status Reason Start Date Expiration Date V isits Requested Visits Authorized [id number] Closed Auto-Generate d Referral 04/30/2023 05/29/2024 1 1 Additional Source Comments (unrecognized sect ion and content) No Status Records FoundNo Status Records FoundNo Status Records FoundNo Status Records FoundNo Status Records FoundNo Status Records FoundNo Status Records FoundNo Status Records Found INFORMATION SOURCE (unrecogn ized section and content) DATE CREATED AUTHOR 05/16/2020 [facility] DATE CREATED AUTHOR AUTHOR'S ORGANIZ ATION 09/06/2020 [facility] DATE CREATED AUTHOR AUTHOR'S ORGANIZ ATION 05/18/2022 [facility] DATE CREATED AUTHOR AUTHOR'S ORGANIZ ATION 06/13/2022 [facility] DATE CREATED AUTHOR AUTHOR'S ORGANIZ ATION 11/06/2022 [facility] DATE CREATED AUTHOR AUTHOR'S ORGANIZ ATION 03/09/2023 [facility] DATE CREATED AUTHOR AUTHOR'S ORGANIZ ATION 08/18/2023 [facility] DATE CREATED AUTHOR AUTHOR'S ORGANIZ ATION 10/08/2023 [facility] Patient Care team informatio n (unrecognized section and content) Team Status: Active Member Role Status Dates Ester Cain MD Primary Care Provider Active Team Status: Inactive Member Role Status Dates Ester Cain MD Primary Care Provider Active Shae Guillory MD Attending Provider Active Experimental Display Builder Relationship Specialty Start Date End Date Ester Cain MD PCP - General 05/05/06 Experimental Display Builder Relationship Specialty Start Date End Date Ester Cain MD PCP - General 05/05/06 Experimental Display Builder Relationship Specialty Start Date End Date Ester Cain MD PCP - General 05/05/06 Experimental Display Builder Relationship Specialty Start Date End Date Ester Cain MD PCP - General 05/05/06 Experimental Display Builder Relationship Specialty Start Date End Date Ester Cain MD PCP - General 05/05/06 Experimental Display Builder Relationship Specialty Start Date End Date Ester Cain MD PCP - General 05/05/06 Experimental Display Builder Relationship Specialty Start Date End Date Ester Cain MD PCP - General 05/05/06 Experimental Display Builder Relationship Specialty Start Date End Date Ester Cain MD PCP - General 05/05/06 Experimental Display Builder Relationship Specialty Start Date End Date Ester Cian MD PCP - General 05/05/06 Experimental Display Builder Relationship Specialty Start Date End Date Ester Cain MD PCP - General 05/05/06 Experimental Display Builder Relationship Specialty Start Date End Date Ester Cain MD PCP - General 05/05/06 Experimental Display Builder Relationship Specialty Start Date End Date Ester Cain MD PCP - General 05/05/06 Experimental Display Builder Relationship Specialty Start Date End Date Ester Cain MD PCP - General 05/05/06 Experimental Display Builder Relationship Specialty Start Date End Date Ester Cain MD PCP - General 05/05/06 Experimental Display Builder Relationship Specialty Start Date End Date Ester Cain MD PCP - General 05/05/06 Experimental Display Builder Relationship Specialty Start Date End Date Ester Cain MD PCP - General 05/05/06 Experimental Display Builder Relationship Specialty Start Date End Date Ester Cain MD PCP - General 05/05/06 Experimental Display Builder Relationship Specialty Start Date End Date Ester Cain MD PCP - General 05/05/06 Experimental Display Builder Relationship Specialty Start Date End Date Ester Cain MD PCP - General 05/05/06 Katherine Keith Md, [facility] 09/07/23 Experimental Display Builder Relationship Specialty Start Date End Date Ester Cain MD PCP - General 05/05/06 Katherine Keith Md, [facility] 09/07/23 Experimental Display Builder Relationship Specialty Start Date End Date Ester Cain MD PCP - General 05/05/06 Katherine Keith Md, MD [facility]ine [facility] 09/07/23 Experimental Display Builder Relationship Specialty Start Date End Date Ester Cain MD PCP - General 05/05/06 Katherine Keith Md, MD Spine Health 09/07/23 Experimental Display Builder Relationship Specialty Start Date End Date Ester Cain MD PCP - General 05/05/06 Katherine Keith Md, MD [facility] 09/07/23 Experimental Display Builder Relationship Specialty Start Date End Date Ester Cain MD PCP - General 05/05/06 Katherine Keith Md, MD [facility] 09/07/23 Experimental Display Builder Relationship Specialty Start Date End Date Ester Cain MD PCP - General 05/05/06 Katherine Keith Md, MD [facility] 09/07/23 Experimental Display Builder Relationship Specialty Start Date End Date Ester Cain MD PCP - General 05/05/06 Katherine Keith Md, MD [facility] 09/07/23 Experimental Display Builder Relationship Specialty Start Date End Date Ester Cain MD PCP - General 05/05/06 Katherine Keith Md, MD [facility] 09/07/23 Goals (unrecognized section and content) Goals may be documented in a n alternate section Source Comments (unrecognize d section and content) In the event this informatio n is protected by the Federal Confidentiality of Alcohol and Drug Abuse Patient Records regulations: The Federal rules restrict any use of the information to criminally investigate or prosecute any alcohol or drug abuse patient.[facility] the event this information is protected by the Federal Confidentiality of Alcohol and Drug Abuse Patient Records regulations: The Federal rules restrict any use of the information to criminally investigate or prosecute any alcohol or drug abuse patient.[facility] HospitalIn the event this information is protected by the Federal Confidentiality of Alcohol and Drug Abuse Patient Records regulations: The Federal rules restrict any use of the information to criminally investigate or prosecute any alcohol or drug abuse patient.[facility] HospitalIn the event this information is protected by the Federal Confidentiality of Alcohol and Drug Abuse Patient Records regulations: The Federal rules restrict any use of the information to criminally investigate or prosecute any alcohol or drug abuse patient.[facility] HospitalIn the event this information is protected by the Federal Confidentiality of Alcohol and Drug Abuse Patient Records regulations: The Federal rules restrict any use of the information to criminally investigate or prosecute any alcohol or drug abuse patient.[facility] HospitalIn the event this information is protected by the Federal Confidentiality of Alcohol and Drug Abuse Patient Records regulations: The Federal rules restrict any use of the information to criminally investigate or prosecute any alcohol or drug abuse patient.[facility] HospitalIn the event this information is protected by the Federal Confidentiality of Alcohol and Drug Abuse Patient Records regulations: The Federal rules restrict any use of the information to criminally investigate or prosecute any alcohol or drug abuse patient.[facility] HospitalIn the event this information is protected by the Federal Confidentiality of Alcohol and Drug Abuse Patient Records regulations: The Federal rules restrict any use of the information to criminally investigate or prosecute any alcohol or drug abuse patient.[facility] HospitalIn the event this information is protected by the Federal Confidentiality of Alcohol and Drug Abuse Patient Records regulations: The Federal rules restrict any use of the information to criminally investigate or prosecute any alcohol or drug abuse patient.[facility] HospitalIn the event this information is protected by the Federal Confidentiality of Alcohol and Drug Abuse Patient Records regulations: The Federal rules restrict any use of the information to criminally investigate or prosecute any alcohol or drug abuse patient.[facility] HospitalIn the event this information is protected by the Federal Confidentiality of Alcohol and Drug Abuse Patient Records regulations: The Federal rules restrict any use of the information to criminally investigate or prosecute any alcohol or drug abuse patient.[facility] HospitalIn the event this information is protected by the Federal Confidentiality of Alcohol and Drug Abuse Patient Records regulations: The Federal rules restrict any use of the information to criminally investigate or prosecute any alcohol or drug abuse patient.[facility] HospitalIn the event this information is protected by the Federal Confidentiality of Alcohol and Drug Abuse Patient Records regulations: The Federal rules restrict any use of the information to criminally investigate or prosecute any alcohol or drug abuse patient.[facility] the event this information is protected by the Federal Confidentiality of Alcohol and Drug Abuse Patient Records regulations: The Federal rules restrict any use of the information to criminally investigate or prosecute any alcohol or drug abuse patient.[facility] HospitalIn the event this information is protected by the Federal Confidentiality of Alcohol and Drug Abuse Patient Records regulations: The Federal rules restrict any use of the information to criminally investigate or prosecute any alcohol or drug abuse patient.[facility] HospitalIn the event this information is protected by the Federal Confidentiality of Alcohol and Drug Abuse Patient Records regulations: The Federal rules restrict any use of the information to criminally investigate or prosecute any alcohol or drug abuse patient.[facility] the event this information is protected by the Federal Confidentiality of Alcohol and Drug Abuse Patient Records regulations: The Federal rules restrict any use of the information to criminally investigate or prosecute any alcohol or drug abuse patient.[facility] HospitalIn the event this information is protected by the Federal Confidentiality of Alcohol and Drug Abuse Patient Records regulations: The Federal rules restrict any use of the information to criminally investigate or prosecute any alcohol or drug abuse patient.[facility] HospitalIn the event this information is protected by the Federal Confidentiality of Alcohol and Drug Abuse Patient Records regulations: The Federal rules restrict any use of the information to criminally investigate or prosecute any alcohol or drug abuse patient.[facility] HospitalIn the event this information is protected by the Federal Confidentiality of Alcohol and Drug Abuse Patient Records regulations: The Federal rules restrict any use of the information to criminally investigate or prosecute any alcohol or drug abuse patient.[facility] HospitalIn the event this information is protected by the Federal Confidentiality of Alcohol and Drug Abuse Patient Records regulations: The Federal rules restrict any use of the information to criminally investigate or prosecute any alcohol or drug abuse patient.[facility] HospitalIn the event this information is protected by the Federal Confidentiality of Alcohol and Drug Abuse Patient Records regulations: The Federal rules restrict any use of the information to criminally investigate or prosecute any alcohol or drug abuse patient.[facility] HospitalIn the event this information is protected by the Federal Confidentiality of Alcohol and Drug Abuse Patient Records regulations: The Federal rules restrict any use of the information to criminally investigate or prosecute any alcohol or drug abuse patient.[facility] HospitalIn the event this information is protected by the Federal Confidentiality of Alcohol and Drug Abuse Patient Records regulations: The Federal rules restrict any use of the information to criminally investigate or prosecute any alcohol or drug abuse patient.[facility] HospitalIn the event this information is protected by the Federal Confidentiality of Alcohol and Drug Abuse Patient Records regulations: The Federal rules restrict any use of the information to criminally investigate or prosecute any alcohol or drug abuse patient.[facility] HospitalIn the event this information is protected by the Federal Confidentiality of Alcohol and Drug Abuse Patient Records regulations: The Federal rules restrict any use of the information to criminally investigate or prosecute any alcohol or drug abuse patient.[facility] HospitalIn the event this information is protected by the Federal Confidentiality of Alcohol and Drug Abuse Patient Records regulations: The Federal rules restrict any use of the information to criminally investigate or prosecute any alcohol or drug abuse patient.[facility] HospitalIn the event this information is protected by the Federal Confidentiality of Alcohol and Drug Abuse Patient Records regulations: The Federal rules restrict any use of the information to criminally investigate or prosecute any alcohol or drug abuse patient.[facility] HospitalIn the event this information is protected by the Federal Confidentiality of Alcohol and Drug Abuse Patient Records regulations: The Federal rules restrict any use of the information to criminally investigate or prosecute any alcohol or drug abuse patient.[facility] HospitalIn the event this information is protected by the Federal Confidentiality of Alcohol and Drug Abuse Patient Records regulations: The Federal rules restrict any use of the information to criminally investigate or prosecute any alcohol or drug abuse patient.[facility] HospitalIn the event this information is protected by the Federal Confidentiality of Alcohol and Drug Abuse Patient Records regulations: The Federal rules restrict any use of the information to criminally investigate or prosecute any alcohol or drug abuse patient.[facility] HospitalIn the event this information is protected by the Federal Confidentiality of Alcohol and Drug Abuse Patient Records regulations: The Federal rules restrict any use of the information to criminally investigate or prosecute any alcohol or drug abuse patient.[facility] HospitalIn the event this information is protected by the Federal Confidentiality of Alcohol and Drug Abuse Patient Records regulations: The Federal rules restrict any use of the information to criminally investigate or prosecute any alcohol or drug abuse patient.[facility] HospitalIn the event this information is protected by the Federal Confidentiality of Alcohol and Drug Abuse Patient Records regulations: The Federal rules restrict any use of the information to criminally investigate or prosecute any alcohol or drug abuse patient.[facility] HospitalIn the event this information is protected by the Federal Confidentiality of Alcohol and Drug Abuse Patient Records regulations: The Federal rules restrict any use of the information to criminally investigate or prosecute any alcohol or drug abuse patient.[facility] HospitalIn the event this information is protected by the Federal Confidentiality of Alcohol and Drug Abuse Patient Records regulations: The Federal rules restrict any use of the information to criminally investigate or prosecute any alcohol or drug abuse patient.[facility] HospitalIn the event this information is protected by the Federal Confidentiality of Alcohol and Drug Abuse Patient Records regulations: The Federal rules restrict any use of the information to criminally investigate or prosecute any alcohol or drug abuse patient.[facility] HospitalIn the event this information is protected by the Federal Confidentiality of Alcohol and Drug Abuse Patient Records regulations: The Federal rules restrict any use of the information to criminally investigate or prosecute any alcohol or drug abuse patient.[facility] HospitalIn the event this information is protected by the Federal Confidentiality of Alcohol and Drug Abuse Patient Records regulations: The Federal rules restrict any use of the information to criminally investigate or prosecute any alcohol or drug abuse patient.[facility] HospitalIn the event this information is protected by the Federal Confidentiality of Alcohol and Drug Abuse Patient Records regulations: The Federal rules restrict any use of the information to criminally investigate or prosecute any alcohol or drug abuse patient.[facility] HospitalIn the event this information is protected by the Federal Confidentiality of Alcohol and Drug Abuse Patient Records regulations: The Federal rules restrict any use of the information to criminally investigate or prosecute any alcohol or drug abuse patient.[facility] Reason for Visit (unrecogniz ed section [...] SPI W/SKULL 2/3 VW Katherine Keith MD [address] [place] [address] [facility] [place] [address] Referral ID Status Reason Start Date Expiration Date V isits Requested Visits Authorized [id number] Closed Auto-Generate d Referral 04/30/2023 05/29/2024 1 1 Reason Comments Radio Main J1 Specialty Diagnoses / Procedures Referred By Contac t Referred To Contact XR IMAGING Diagnoses Spinal stenosis, lumbar region with neurogenic claudication Procedures XR LUMBAR MOTION 4V AP/LAT/ FLEX/EXT RADEX SPINE LUMBOSACRAL MINIMUM 4 VIEWS Alfonso Loyd PA-C [address] [place] [address] [place] [address] Referral ID Status Reason Start Date Expiration Date V isits Requested Visits Authorized [id number] Closed Auto-Generate d Referral 03/21/2023 04/19/2024 1 1 Specialty Diagnoses / Procedures Referred By Contac t Referred To Contact CT IMAGING Diagnoses Chronic low back pain, unspecified back pain laterality, unspecified whether sciatica present Procedures CT LUMBAR SPINE WO IVCON CT LUMBAR SPINE W/O CONTRAST MATERIAL Katherine Keith MD [address] [place] [address] [place] [address] Referral ID Status Reason Start Date Expiration Date V isits Requested Visits Authorized [id number] Closed Auto-Generate d Referral 04/30/2023 05/29/2024 1 1 Reason Comments New Patient Reason Comments Schedule Surgery Reason Comments Forms Reason Comments Patient Update Reason Comments Blood Management Reason Comments Follow Up Reason Comments Established Patient Reason Comments Medication Problem Reason Onset Date Comments Refill Request 09/02/2023 Reason Onset Date Comments Refill Request 09/05/2023 Reason Onset Date Comments Refill Request 09/18/2023 Reason Comments CARE CONTINUUM ADVISOR ASSESSMENT Reason Comments Research Reason Onset Date Comments Refill Request 10/15/2023 FOR RECORDS PERTAINING TO PATIENTS WHO ARE [...] BE BASED ON THE PRIMARY CLINICAL RECORDS. [employer] provides no warranty or guarantee of the accuracy or completeness of information in this document.
[2023-10-16 07:37] LABS: Basophils Absolute Auto 0.1 10^3/uL (0.0-0.1); Basophils Percent Auto 0.5 % (0.2-2.0); Eosinophils Absolute Auto 0.2 10^3/uL (0.0-0.7); Hematocrit 39.3 % (42.0-54.0); Hemoglobin 13.2 g/dL (14.0-18.0); Immature Granulocytes Abs Auto 0.04 10^3/uL (0.00-0.03); Immature Granulocytes Pct Auto 0.4 % (0.0-0.5); Lymphocytes Absolute Auto 2.5 10^3/uL (1.2-3.8); Lymphocytes Percent Auto 27.6 % (20.5-60.0); Mean Corpuscular HGB Conc 33.6 g/dL (29.9-35.2); Mean Corpuscular Hemoglobin 32.5 pg (25.9-34.0); Mean Corpuscular Volume 96.8 fL (80.0-94.0); Mean Platelet Volume 9.6 fL (9.5-13.5); Monocytes Absolute Auto 0.8 10^3/uL (0.3-0.8); Monocytes Percent Auto 8.7 % (1.7-12.0); Neutrophils Absolute Auto 5.5 10^3/uL (1.4-6.5); Neutrophils Percent Auto 60.8 % (43.0-75.0); Platelet Count 337 10^3/uL (150-450); Red Blood Count 4.06 10^6/uL (4.70-6.10); Red Cell Distribution Width 11.9 % (11.0-15.0); White Blood Count 9.1 10^3/uL (4.0-11.0)
[2023-10-16 07:54] LABS: Alanine Aminotransferase 32 U/L (16-63); Albumin Globulin Ratio 1.2; Albumin Level 3.5 g/dL (3.4-5.0); Alkaline Phosphatase 89 U/L (46-116); Anion Gap 11.8; Aspartate Amino Transferase 22 U/L (15-37); BUN Creatinine Ratio 18.9; Bilirubin Total 0.7 mg/dL (0.2-1.0); Calcium 9.5 mg/dL (8.5-10.1); Carbon Dioxide 29.5 mmol/L (21.0-32.0); Chloride 105 mmol/L (98-107); Estimated GFR (African America >60 (>=60); Estimated GFR (Non-African Ame >60 (>=60); Free T3 2.59 pg/mL (2.18-3.98); Globulin 2.9 g/dL; Glucose 102 mg/dL (74-106); Potassium 4.3 mmol/L (3.5-5.1); Sodium 142 mmol/L (136-145); Thyroid Stimulating Hormone 1.293 uIU/mL (0.358-3.740); Total Protein 6.4 g/dL (6.4-8.2)
[2023-10-16 09:32] LABS: Estimated Average Glucose 91 mg/dL; Glycohemoglobin A1C 4.8 % (4.5-6.2)
[2023-10-17 03:07] LABS: Insulin 13.1 uIU/mL (2.6-24.9)
== END 2023-10-16 06:59 | disposition home or self-care (01) ==
LOC: LAB 06:59
PROVIDERS: PCP Family Medicine; Visit Provider Family Medicine
DX: E16.2 Hypoglycemia, unspecified (principal); M54.12 Radiculopathy, cervical region; M54.16 Radiculopathy, lumbar region; E03.9 Hypothyroidism, unspecified
CPT/HCPCS: 36415; 80053; 83036; 83525; 84436; 84443; 84481; 85025

== ENCOUNTER 2023-10-27 12:57 | Outpatient (RCR) | payer OTHER, SELFPAY | END 2024-01-01 13:26 | disposition home or self-care (01) | LOC: PT 12:57 | PROVIDERS: PCP Family Medicine | DX: R29.898 Other symptoms and signs involving the musculoskeletal system (principal); Z98.1 Arthrodesis status | CPT/HCPCS: 97110; 97162 ==

== ENCOUNTER 2023-11-18 09:36 | Outpatient (OUT) | payer OTHER, SELFPAY | END 2023-11-18 09:37 | disposition home or self-care (01) | LOC: PST 09:36 | PROVIDERS: PCP Family Medicine; Visit Provider Surgery | DX: Z01.818 Encounter for other preprocedural examination (principal); Z12.11 Encounter for screening for malignant neoplasm of colon ==

== ENCOUNTER 2023-11-26 08:03 | Day surgery (SDC) | payer OTHER, SELFPAY ==
--- NOTE | 2023-11-26 | OP_ITS ---
OPERATION DATE: 11/26/2023 PREOPERATIVE DIAGNOSIS: Colorectal screening. POSTOPERATIVE DIAGNOSIS: 1.2 cm cecal sessile polyp, as well as moderate sigmoid diverticulosis. PROCEDURE: Colonoscopy to cecum with cold snare polypectomy x1. SURGEON: Cayetano Snell M.D. ANESTHESIA: Monitored anesthesia care. PREP: The prep was fair. INDICATIONS AND CONSENT: Patient is a 68-year-old male presents for colorectal screening. Indications, risks, benefits, alternatives of proceeding with colonoscopy were explained extensively to the patient, including the risks of bleeding, colon perforation or anesthetic complications. All of his questions were answered. Informed consent was obtained. PROCEDURE: Patient brought to the operating room, placed in the left lateral decubitus position. Monitored anesthesia care was provided. Rectal exam was performed which showed no masses or blood. The scope was inserted into the anal canal. Under direct visualization was advanced. With the aid of abdominal compression, it was advanced to the cecum where cecal markings were clearly identified. There was noted to be a fair prep with some brown liquid stool throughout the colon that was partially irrigated clear. Cecal markings were clearly identified. Within the cecum, there was noted to be a 1.2 cm irregular villous type sessile polyp that was removed with cold snare with good hemostasis. It was retrieved with a Plummer net. No other mass lesions or polyps were noted. There was moderate sigmoid diverticulosis without inflammatory changes or scarring. The scope was retroflexed in the anal canal. There was no significant hemorrhoidal disease. Scope was then withdrawn. Patient tolerated procedure well, was sent to recovery room in good condition. Follow up colonoscopy likely in one year, but will depend on pathology report. CC: Devon Craven M.D. [facility]
[2023-11-26 08:10] VITALS: BP 172/91; PULSE 55; TEMP 36.1; O2SAT 99; BMI 26.8
[2023-11-26] MEDS: LACTATED RINGER'S SOLUTION 1,000 ML 50 ML IV (08:29)
[2023-11-26 10:49] VITALS: BP 108/70; PULSE 54; TEMP 36.8; O2SAT 100
[2023-11-26 11:04] VITALS: BP 156/85; PULSE 60; O2SAT 99
[2023-11-26 11:19] VITALS: BP 149/91; PULSE 62; O2SAT 98
== END 2023-11-26 11:19 | disposition home or self-care (01) ==
PROVIDERS: PCP Family Medicine; Visit Provider Surgery
PROC: (CPT 812; principal; 2023-11-26 09:10)
DX: Z12.11 Encounter for screening for malignant neoplasm of colon (principal); D12.0 Benign neoplasm of cecum; K57.30 Diverticulosis of large intestine without perforation or abscess without bleeding; I10 Essential (primary) hypertension; E78.00 Pure hypercholesterolemia, unspecified; M47.816 Spondylosis without myelopathy or radiculopathy, lumbar region; Z90.49 Acquired absence of other specified parts of digestive tract; N40.0 Benign prostatic hyperplasia without lower urinary tract symptoms
CPT/HCPCS: 45385; 88305; J2704

== ENCOUNTER 2023-12-09 06:16 | Outpatient (OUT) | payer OTHER, SELFPAY ==
--- OUTSIDE RECORDS SUMMARY | 2023-12-09 06:21 | XMS_ITS | CCD ---
Author Organization [facility] Care Team Providers Care Software Technician Name Role Phone ESTER CAIN Referring Unavailable [...] NORMAN Primary Care Unavailable HOY ., DR NORAMN Consulting Unavailable HOY ., DR NORMAN Attending [...] DR NORMAN Consulting Unavailable CARLITOSY ., DR ONRMAN Attending Unavailable MD Ester Cain Primary Care Provider MD Shae Guillory Attending Provider Ester Cain MD Primary Care Provider [phone] Ester Cain MD Primary Care Provider [phone] PELLE, KATHERINE Referring Unavailable HOY, ESTER M Primary Care Unavailable PELLE, KATHERINE Referring Unavailable HOY, ESTER M Primary Care Unavailable BONUS, ALFONSO M Referring Unavailable HOY, ESTER M Primary Care Unavailable Katherine Keith MD, Md Unavailable Unavailable MD Ester Cain Primary Care Provider [phone] MD Camryn Agustin Attending Provider [phone] Shae Guillory Attending Unavailable VAMSI, Camryn Rodriguez Attending Unavailable VAMSI, Camryn Rodriguez Attending Unavailable VAMSI, Camryn Rodriguez Attending Unavailable Shae Guillory Attending Unavailable Shae Guillory Attending Unavailable Hoy, Ester M Primary Care Unavailable Teresal, Camryn Rodriguez Attending Unavailable Camryn Agustin Admitting Unavailable BONUS, ALFONSO Referring Unavailable HOY, ESTER M Primary Care Unavailable HOY, ESTER M Primary Care Unavailable PELLE, KATHERINE Referring Unavailable PELLE, KATHERINE Attending Unavailable HOY, [...] Primary Care Unavailable BONUS, ALFONSO Attending Unavailable HOY, ESTER M Primary Care Unavailable PELLE, KATHERINE Referring Unavailable HOY, ESTER M Primary Care Unavailable HOY, ESTER M Primary Care Unavailable BONUS, ALFONSO Attending Unavailable HOY, ESTER M Primary Care Unavailable BONUS, ALFONSO Referring Unavailable HOY, ESTER M Primary Care Unavailable CHRISTIANNE ZIEGLER Admitting Unavailable HOY, ESTER M Primary Care Unavailable PELLE, KATHERINE Attending Unavailable HOY, ESTER M Primary Care Unavailable PELLE, KATHERINE Admitting Unavailable PELLE, KATHERINE Attending Unavailable HOY, ESTER M Primary Care Unavailable PELLE, KATHERINE Attending Unavailable PELLE, KATHERINE Admitting Unavailable Allergies Allergy Classification Reported Allergen(s) Allergy Type Date of Onset Reaction(s) Facility Penicillins (antibiotic) (4 sources) Penicillins Drug Allergy 7 Rash [facility] Repository (8 sources) Penicillin; Translations: [penicillin] Drug Allergy Eruption of skin (disorder) [facility] [place] (3 sources) Penicillins; Translations: [PENICILLINS] Drug allergy (disorder) 7 [facility] Repository (20 sources) Penicillins Propensity to adverse reactions 7 Rash [facility] (6 sources) Methocarbamol; Translations: [methocarbamol] Drug Allergy 4 Patient reported problems (finding), Intolerance [facility] [place] (1 source) No Known Medication Allergies; Translations: [No Known Medication Allergies] Propensity to adverse reactions (disorder) [facility] Repository (1 source) Unable to Assess Drug allergy (disorder) 3 [facility] Repository Medications Current Medications Medication Drug Class(es) Dates Sig (Normalized) Sig (Original) acetaminophen 325 mg oral tablet (20 sources) Start: 10-04-2023 take 2 tablets enteral route every six hours as needed acetaminophen (TYLENOL) 325 mg tablet 2 tablets by ORAL/FEEDING TUBE route every 6 hours as needed for pain. 10/04/2023 Active Start: 08-22-2023 take 2 tablets by mo uth every four hours acetaminophen (TYLENOL) 325 mg tablet 2 tablets by ORAL/FEEDING TUBE route every 4 hours. 0 08/22/2023 Active carvedilol 25 mg oral tablet (20 sources) alpha-Adrenergic Janak, beta-Adrenergic Janak Start: 11-11-2023 take 1 tablet by mouth once daily carvedilol 25 mg Tab 25 mg = 1 tab(s), Oral, Daily, Refills(s) 0 Start Date: 11/11/23 Status: Ordered Start: 10-04-2023 End: 11-03-2023 take 1 tablet by mouth twice daily at mealtime carvedilol (COREG) 25 mg tablet Take 1 tablet by mouth two times a day with meals. 60 tablet 10/04/2023 Active Start: 03-11-2023 take 1 tablet by raya twice daily at mealtime carvedilol (COREG) 12.5 [...] with meals. Celebrate Multivitamin (5 sources) Start: 2022 take 1 tablet by mouth once daily Celebrate Multivitamin 1 tab(s), Oral, Daily, Prophylaxis Start Date: 04/22/22 Status: Ordered cyclobenzaprine hydrochloride 10 mg oral tablet (1 source) Muscle Relaxant Start: 2023 take 1 tablet by mouth three times daily as needed for muscle spasms cyclobenzaprine 10 mg Tab 10 mg = 1 tab(s), Oral, TID, PRN for spasm, Refills(s) 0 Start Date: 10/23/23 Status: Ordered diclofenac sodium 0.01 mg/mg topical gel (20 sources) Nonsteroidal Anti-inflammatory Drug Start: 2023 End: 2023 diclofenac (VOLTAREN ARTHRITIS PAIN) 1 % topical gel Apply 2 g to affected area two times a day. 120 g 1 09/12/2023 11/11/2023 Active docusate sodium 50 mg / sennosides, skilled nursing 8.6 mg oral tablet (20 sources) Start: 2023 take 2 tablets by mouth twice daily senna-docusate (SENNA-S) 8.6-50 mg per tablet Take 2 tablets by mouth two times a day. 20 tablet 08/22/2023 Active Fish Oils (3 sources) Start: 2022 take 1 capsule by mouth once daily Fish Oil 1 cap, Oral, Daily, Prophylaxis Start Date: 04/22/22 Status: Ordered furosemide 40 mg oral tablet (16 sources) Loop Diuretic take 1 tablet by mouth once daily furosemide (LASIX) 40 mg tablet Take 40 mg by mouth once daily. Active gabapentin 300 mg oral capsule (20 sources) Anti-epileptic Agent Start: 2023 End: 2023 take 1 capsule by mouth every eight hours gabapentin (NEURONTIN) 300 mg capsule Take 1 capsule by mouth every 8 hours for 30 days. 90 capsule 10/09/2023 Active isoniazid 300 mg oral tablet (1 source) Antimycobacterial Start: 2020 take 1 tablet by mouth once daily isoniazid 300 mg Tab 300 mg = 1 tab(s), Oral, Daily, Refills(s) 0 Start Date: 09/26/20 Status: Ordered lidocaine 0.05 mg/mg medicated patch (20 sources) Antiarrhythmic, Amide Local Anesthetic Start: 2023 End: 2023 lidocaine (LIDODERM) 5 % Take as instructed on package 10 Patch 1 10/09/2023 Active lisinopril 20 mg oral tablet (18 sources) Angiotensin Converting Enzyme Inhibitor Start: 2022 take 1 tablet by mouth once daily [...] aily. magnesium oxide 500 mg oral capsule (10 sources) Start: 08-06-2023 take 1 capsule by mouth twice daily Magnesium Oxide 500 mg cap Take 1 capsule by mouth two times a day. 0 08/06/2023 Active Start: 09-26-2020 take 1 tablet by raya th once daily magnesium oxide 400 mg Tab 400 mg = 1 tab(s), Oral, Daily, Refills(s) 0, Prophylaxis Start Date: 09/26/20 Status: Ordered methylPREDNISolone (1 source) Corticosteroid Start: 11-13-2023 End: 11-19-2023 methylPREDNISolone (MEDROL, NIKHIL,) 4 mg Dose-Pack As instructed per package 21 tablet 11/13/2023 11/19/2023 Active mupirocin 0.02 mg/mg topical ointment (3 sources) [...] days. 56 tablet 0 08/22/2023 08/29/2023 Discontinued pregabalin 50 mg oral capsule (5 sources) Start: 10-23-2023 End: 02-10-2024 take 1 capsule by mouth twice daily pregabalin (LYRICA) 50 mg capsule Indications: Adverse effect of treatment, sequela Take 1 capsule by mouth two times a day for 90 days. 60 capsule 2 11/12/2023 02/10/2024 Active sildenafil 100 mg oral tablet (2 [...] by mouth every 8 hours. 90 tablet 09/10/2023 Active Start: 04-03-2022 take 2 tablets by mo uth once daily at bedtime tiZANidine (ZANAFLEX) 4 mg tablet Take 2 tablets by mouth daily at bedtime. 0 03/13/2023 Active Comment on above: Take 2 tablets by [...] / HYDROcodone bitartrate 5 mg oral tablet (18 sources) Opioid Agonist Start: 11-12-2023 End: 11-19-2023 take 1 tablet by mouth every six hours as needed for pain HYDROcodone-aceta minophen (NORCO) 5-325 mg per tablet Indications: Adverse effect of treatment, sequela Take 1 tablet by mouth every 6 hours as needed for pain for up to 7 days. 28 tablet 11/12/2023 11/19/2023 Start: 11-05-2023 End: 11-12-2023 take 1 tablet by mouth twice daily HYDROcodone-acetaminophen (NORCO) 5-325 mg per tablet Indications: Post-op pain Take 1 tablet by mouth two times a day for 7 days. 14 tablet 11/05/2023 11/12/2023 Start: 10-23-2023 End: 11-06-2023 take 1 tablet by mouth every eight hours as needed for pain HYDROcodone-acetaminophen (NORCO) 5-325 mg per tablet Indications: Post-op pain Take 1 tablet by mouth every 8 hours as needed for pain for up to 7 days. 21 tablet 10/30/2023 11/05/2023 Discontinued Start: 09-11-2022 take 1 tablet by raya th every eight hours as needed for pain acetaminophen-hydrocodone 325 mg-5 mg or al tablet 1 tab(s), Oral, q8hr as needed for pain, Refill(s) 0 Start Date: 09/11/22 Status: Ordered Start: 09-26-2020 take 1 tablet by raya th every eight hours as needed for pain acetaminophen-hydrocodone 300 mg-5 mg or al tablet 1 tab(s), Oral, q8hr as needed for pain, Refill(s) 0 Start Date: 09/26/20 Status: Ordered fluorouracil 50 mg/ml topical cream (17 sources) [...] Problem Date Documented Date Episodic/Chronic Abdominal hernia (17 sources) Hernia of anterior abdominal wall; Translations: [Ventral hernia without obstruction or gangrene] Onset: 03-18-2022 Episodic Abdominal pain (12 sources) Epigastric pain; Translations: [Epigastric pain] Onset: 03-16-2022 Episodic Cardiac dysrhythmias (20 sources) Supraventricular tachycardia; Translations: [Ventricular premature beats] Onset: 08-06-2023 09-26-2020 Chronic Complications of surgical procedures or medical care (1 source) Complication of procedure; Translations: [Complication of surgical and medical care, unspecified, sequela] 11-12-2023 Episodic Deficiency and other anemia (1 source) Iron deficiency anemia; Translations: [Iron deficiency anemia, unspecified] 07-11-2023 Episodic Deficiency and other anemia (1 source) Iron deficiency anemia, unspecified; Translations: [Iron deficiency anemia, unspecified iron deficiency anemia type] Onset: 08-06-2023 Episodic Disorders of lipid metabolism (7 sources) Pure hypercholesterolemia, unspecified; Translations: [Pure hypercholesterolemia] Onset: 03-06-2022 Chronic Diverticulosis and diverticulitis (9 sources) Diverticular disease 09-26-2020 Chronic Essential hypertension (20 sources) Hypertensive disorder; Translations: [Essential hypertension] Onset: 08-06-2023 05-27-2019 Chronic Genitourinary symptoms and ill-defined conditions (3 sources) Blood in urine; Translations: [Gross hematuria] Onset: 12-05-2022 Episodic Hemorrhoids (7 sources) Internal hemorrhoids 09-26-2020 Episodic Hyperplasia of prostate (7 sources) Benign prostatic hypertrophy with outflow obstruction; Translations: [Benign prostatic hyperplasia with lower urinary tract symptoms] Onset: 09-04-2022 Chronic Other acquired deformities (20 sources) Other secondary scoliosis, site unspecified; Translations: [Disorder of bone and cartilage, unspecified] Onset: 04-30-2023 04-30-2023 Chronic Other and unspecified benign neoplasm (7 sources) Dermal cellular nevus 06-15-2019 Episodic Other connective tissue disease (20 sources) Swelling of lower limb; Translations: [Other specified soft tissue disorders] Onset: 09-08-2023 09-08-2023 Episodic Other connective tissue disease (20 sources) Pain in lower limb; Translations: [Pain in leg, unspecified] Onset: 09-08-2023 09-08-2023 Episodic Other connective tissue disease (1 source) Other symptoms and signs involving the musculoskeletal system; Translations: [Other musculoskeletal symptoms referable to limbs] 10-21-2023 Episodic Other connective tissue disease (2 sources) [...] Onset: 04-30-2023 Chronic Other nervous system disorders (5 sources) Postoperative pain ; Translations: [Other acute postprocedural pain] 10-09-2023 Episodic Other non-epithelial cancer of skin (7 sources) 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 05-26-2019 Episodic Other nutritional; endocrine; and metabolic disorders (7 sources) Overweight in adulthood with body mass index of 25 or more but less than 30 04-03-2022 Episodic Other nutritional; endocrine; and metabolic disorders (1 source) Overweight 11-11-2023 Episodic Other screening for suspected conditions (not mental disorders or infectious disease) (13 sources) Abnormal results of liver function studies; Translations: [Encounter for screening for malignant neoplasm of prostate] Onset: 01-01-2022 Episodic Other skin disorders (7 sources) Inflamed seborrheic keratosis 09-28-2020 Episodic Other skin disorders (7 sources) Senile hyperkeratosis 05-26-2019 Episodic Other skin disorders (7 sources) Skin tag 09-28-2020 Episodic Residual codes; unclassified (2 sources) H/O Spinal surgery; Translations: [Other specified postprocedural states] 07-11-2023 Episodic Residual codes; unclassified (20 sources) Pain; Translations: [Pain, unspecified] Onset: 09-08-2023 09-08-2023 Episodic Residual codes; unclassified (20 sources) Bilateral lower limb edema; Translations: [Localized edema] Onset: 09-08-2023 09-08-2023 Episodic Spondylosis; intervertebral disc disorders; other back problems (8 sources) Lumbar spondylosis; Translations: [Spondylosis without myelopathy or radiculopathy, lumbar region] Onset: 09-07-2023 09-26-2020 Chronic Unclassified (7 sources) Patient encounter status 09-28-2020 Unclassified (2 sources) Chronic low back pain, unspecified back pain laterality, unspecified whether sciatica present; Translations: [Chronic low back pain, unspecified back pain laterality, unspecified whether sciatica present] Onset: 04-30-2023 Varicose veins of lower extremity (3 sources) Varicose veins of lower extremity 09-11-2022 Episodic Past or Other Problems Problem Classification Problem Date Documented Date Episodic/Chronic Acquired foot deformities (20 sources) Right foot drop; Translations: [Foot drop, right foot] Onset: 08-20-2023 08-20-2023 Episodic Allergic reactions (20 sources) Allergy to penicillin; Translations: [Allergy status to penicillin] Onset: 08-06-2023 08-06-2023 Episodic Neoplasms of unspecified nature or uncertain behavior (20 sources) Neoplasm of uncertain behavior of skin; Translations: [Neoplasm of uncertain behavior of skin] Onset: 08-05-2008 05-27-2019 Episodic Other and unspecified benign neoplasm (20 sources) Benign neoplasm of skin; Translations: [Other benign neoplasm of skin, unspecified] Onset: 08-05-2008 08-05-2008 Episodic Other connective tissue disease (20 sources) History of lumbar fusion; Translations: [Arthrodesis status] Onset: 08-19-2023 08-19-2023 Episodic Other nervous system disorders (20 sources) Acute postoperative pain; Translations: [Other acute postprocedural pain] Onset: 08-20-2023 08-29-2023 Episodic Other nervous system disorders (1 source) Other acute postprocedural pain; Translations: [Acute post-operative pain] Onset: 08-20-2023 Episodic Other skin disorders (20 sources) Seborrheic keratosis; Translations: [Other seborrheic keratosis] Onset: 09-08-2008 09-08-2008 Episodic Residual codes; unclassified (2 sources) Other specified postprocedural states; Translations: [History of laminectomy] Onset: 04-30-2023 Episodic Spondylosis; intervertebral disc disorders; other back problems (20 sources) Lumbar radiculopathy; Translations: [Radiculopathy, cervical region] Onset: 01-18-2022 09-26-2020 Episodic Results Test Name Value Interpretation Reference Range Facility [facility] 12-05-2023 [facility] Telephone ([facility]NSMN) BRADEN RODRIGUEZ ([id number]) 1955 M Date Time Provider Department 9/27/24 KATHERINE KEITH During your visit today, we recorded the following information about you: Wellington Castaneda RN 12/05/2023 9:11 AM Signed Called patient to follow up after steroid taper. No answer. Left message to return call to the office. 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 - gabapentin (NEURONTIN) 300 mg capsule Take 1 capsule by mouth every 8 hours for 30 days. - lidocaine (LIDODERM) 5 % Take as instructed on package - acetaminophen (TYLENOL) 325 mg tablet 2 tablets by ORAL/FEEDING TUBE route every 6 hours as needed for pain. - carvedilol (COREG) 25 mg tablet Take 1 tablet by mouth two times a day with meals. - furosemide (LASIX) 40 mg tablet Take 40 mg by mouth once daily. - tiZANidine (ZANAFLEX) 2 mg tablet Take 3 tablets by mouth every 8 hours. - senna-docusate (SENNA-S) 8.6-50 mg per tablet Take 2 tablets by mouth two times a day. Problem List As Of Date 12/05/2023 Noted Resolved BENIGN NEOPLASM SKIN NEC-exam [D23.9] [...] and swelling of lower extremity [M79.606, *09/08/2023 Low back pain [M54.50] 10/02/2023 Encounter Status:Closed by WELLINGTON CASTANEDA on 12/05/23 Normal [facility] 11-26-2023 L Specimen: [id number] Received: 11/27/23 Status: CASANDRA Thurman Num: [id number] Spec Type: Surgical Subm Dr: Camryn Agustin MD FACS Tissues: A Colon Biopsy (CECAL COLON POLYP) Procedures: HE/2, Gross/Micro L4 Age/ Patient Sex Location Account Attending Physician Braden Rodriguez 68/M [facility] [id number] Camryn Agustin MD FACS SPEC NUM: [id number] RECD: 11/27/23 STATUS: CASANDRA THURMAN NUM: [id number] KIM: 11/26/[address]: Camryn Agustin MD FACS ENTERED: 11/27/[address]: Kale Burt SPEC TYPE: Surgical DEPT: [facility] ENTERED BY: [id number] RECV BY: [id number] ORDERED: HE/2, Gross/Micro L4 ORDERED: HE/2, Gross/Micro L4 Pathological Diagnosis Cecal polyp: Tubulovillous adenoma. Clinical Information Not given Gross Description The specimen is received in formalin with the patient's name and cecal polyp and consists of 3 og portions of soft tissue ranging in size from 0.2 to 1.1 cm in greatest dimension. The largest portion is trisected. The specimen is entirely submitted in cassette A1. CPT Codes 88 305 -------- -------- Specimen: [id number] Received: 11/27/23 Status: CASANDRA Thurman Num: [id number] Spec Type: Surgical Subm Dr: Camryn Agustin MD FACS Tissues: A Colon Biopsy (CECAL COLON POLYP) Procedures: LINDA, Sheree/Jhon Ascencio -------- Patient: Braden Rodriguez [id number] (Continued) -------- Signed (signature on file) Edward Byers MD 12/02/23 8320 Normal [facility] TJOVhanna 11-12-2023 TJOV Office Visit (SPNSMN ) BRADEN RODRIGUEZ ([id number]) 1955 M Date Time Provider Department 11/12/23 2:20 PM KATHERINE KEITH SPNSMN During your visit today, we recorded the following information about you: Pulse Respiration Blood pressure Weight 71/minute 18/minute 146/77 93.1 kg Height 1.829 m Katherine Keith MD 12/05/2023 4:56 AM Signed SPINE SURGERY FOLLOW UP This is an in-person visit. Staff note: We had a long discussion regarding his clinical course, At this juncture I would like to get more imaging and understand this weakness better The pain in his leg is much improved since surgery, however he has not had return of function to the ankle I am uncertain as to why, but I stressed the need to investigate any potential reversible ongoing issues As such imaging was ordered as well as EMG We reviewed current imaging in the office All questions were answered to stated satisfaction Katherine Keith MD SERVICE DATE: 11/12/2023 SURGERY DATE: 08/19/23 L2-L3 oblique interbody fusion L3-L4 oblique interbody [...] robot for pedicle screw placement and planning Operations During Hospitalization: 10/02/2023: Right L4/5 facetectomy Braden Rodriguez is seen for 1 month post operative follow up. Since last visit he is no different with regards to his R foot dorsiflexion weakness. Did get some relief of pain with oral steroid use. PAIN EVALUATION 11/05/2023 1307 11/12/2023 1409 Pain Level: 6 4 Pain Location: -- Leg-Right Description: Cramping;Shooting;Spa sm;Stabbing;Stiffness ;Tenderness;Tightness ;Tingling Throbbing;Pulsating Duration Amount of Time: 3 4 Duration Units: Months Months Frequency: Continuous Continuous Intervention/Comfort measure: Medication;Reposition Relaxation;Medication ;Heat;Exercise;Positi oning Pain Radiation: Pain does not radiate ANTIPLATELET OR ANTICOAGULATION STATUS: No Patient Entered Questionnaires 04/28/2023 09/23/2023 11/05/2023 Spine Questions Pain Location: Leg Leg Leg Pain Duration: 1-3 months 1-3 months Symptoms from neck/cervical spine: No No No Employment Status: Sick leave or maternity leave Disabled due to back pain, permanently or temporarily Off work 1 month or more due to back/neck pain: Yes Yes Applied for/receive disability/WC due to low back/neck pain Yes Yes Involved in law suit/legal claim: No PROMIS Score Percentiles 04/28/2023 09/23/2023 11/05/2023 Physical Health Physical Function Percentile 2 0 2 Sleep Percentile 38 12 27* Fatigue Percentile 16* 31 12 Pain Interference Percentile 7 4 10 04/28/2023 09/23/2023 11/05/2023 PROMIS SOCIAL ROLE SCORE Social Role Satisfaction Percentile 5 12 2 04/28/2023 07/30/2023 11/05/2023 PROMIS Global Health Scale Physical Health Percentile 15 22* 4 Mental Health Percentile 9 19* 9 Percentiles provide an indication of how the patient's score ranks in relation to the general population. Higher percentile rankings indicate better function/quality of life. 50th percentile is the average of the general population and indicates half of respondents had a worse score. Descriptive Summary for PROMIS Physical Function T-score = 30 (Percentile 2) Unable - Do 2 hours of physical labor Unable - Walk at a normal speed. Depression Screenin04/28/2023 09/23/2023 11/05/2023 PHQ-9 Score 7 6 10 04/28/2023 09/23/2023 11/05/2023 PHQ-9 Self-harm Question Question 9 Not at all Not at all Not at all PHQ-9 Self-Harm (Item 9) response options: 0 Not at all 1 Several days 2 More than half the days 3 Nearly every day PHQ-9 Levels: 0-4 No to mild depression 5-9 Mild depression 10-14 Moderate depression 15-19 Moderately severe depression 20-27 Severe depression PHYSICAL EXAM: BP 146/77 Pulse 71 Resp 18 Ht 182.9 cm (6') Wt 93.1 kg (205 lb 4 oz) SpO2 100% BMI 27.84 kg/m? GENERAL APPEARANCE: Well nourished, well developed, and no apparent distress. NEURO PSYCH: Patient oriented to person, place, and time. Mood pleasant. Benign affect. MUSCULOSKELETAL VISUAL INSPECTION CERVICAL: WNL THORACIC: WNL LUMBAR: WNL MOTOR: 2/5 R ankle DF and EHL, 2/5 L ankle DF and EHL SENSORY: Normal sensory exam GAIT: Normal. DATA REVIEW [facility] records independently reviewed XR L spine from today show appropriately placed positioning of hardware with no acute abnormalities ASSESSMENT/PLAN (T88.9XXS) Adverse effect of treatment, seque (more content not included)... Normal [facility] XR LUMBAR 2V AP/LATon 2023 XR LUMBAR 2V AP/LAT * * *Final Report* * * DATE OF EXAM: Nov 12 2023 1:11PM JIX [id number] - XR LUMBAR 2V AP/LAT / PROCEDURE REASON: multiple diagnoses * * * * Physician Interpretation * * * * EXAMINATION / TECHNIQUE: XR LUMBAR 2V AP/LAT HISTORY: post op follow up History of laminectomy Degenerative scoliosis in adult patient COMPARISON: 09/10/2023. RESULT: See impression IMPRESSION: Intact spinal fusion hardware. Vertebral body heights and sagittal alignment are maintained. [employer]iz[employer] Software Developer: [email or web address] Transcribe Date/Time: Nov 12 2023 1:25P Dictated by : LONNIE HERNANDEZ MD This examination was interpreted and the report reviewed and electronically signed by: LONNIE HERNANDEZ MD on Nov 12 2023 1:25PM EST [id number] Normal [facility] XR Lumbar spine AP and Later dustin 11-12-2023 IMPRESSION: Intact spinal fusion hardware. Vertebral body heights and sagittal alignment are maintained. [employer]iz[employer] Software Developer: [email or web address] Transcribe Date/Time: Nov 12 2023 1:25P Dictated by : LONNIE HERNANDEZ MD This examination was interpreted and the report reviewed and electronically signed by: LONNIE HERNANDEZ MD on Nov 12 2023 1:25PM EST DIVISION OF RADIOLOGY * * *Final Report* * * DATE OF EXAM: Nov 12 2023 1:11PM [id number] - XR LUMBAR 2V AP/LAT / PROCEDURE REASON: multiple diagnoses * * * * Physician Interpretation * * * * EXAMINATION / TECHNIQUE: XR LUMBAR 2V AP/LAT HISTORY: post op follow up History of laminectomy Degenerative scoliosis in adult patient COMPARISON: 09/10/2023. RESULT: See impression DIVISION OF RADIOLOGY Provider, Félix Cariascornelius cueto [place] - 11/12/2023 * * *Final Report* * * DATE OF EXAM: Nov 12 2023 1:11PM JIX [id number] - XR LUMBAR 2V AP/LAT / PROCEDURE REASON: multiple diagnoses * * * * Physician Interpretation * * * * EXAMINATION / TECHNIQUE: XR LUMBAR 2V AP/LAT HISTORY: post op follow up History of laminectomy Degenerative scoliosis in adult patient COMPARISON: 09/10/2023. RESULT: See impression IMPRESSION IMPRESSION: Intact spinal fusion hardware. Vertebral body heights and sagittal alignment are maintained. [employer] Software Developer: [facility] Transcribe Date/Time: Nov 12 2023 1:25P Dictated by : LONNIE HERNANDEZ MD This examination was interpreted and the report reviewed and electronically signed by: LONNIE HERNANDEZ MD on Nov 12 2023 1:25PM EST [facility] Radiology Study observation (narrative) [facility] XR Lumbar spine AP and Later alOrdered By: Cctrevin Provider on 11-12-2023 [facility] CNPTrupti [facility] BRADEN RODRIGUEZ ([id number]) 1955 M Date Time Provider Department 11/05/23 ALFONSO LOYD During your visit today, we recorded the following information about you: Tara Rodriguez 11/05/2023 2:07 PM Signed Received a fax from [employer] requesting a prior authorization for: Hydrocodone-Acetamino phen 5-325 MG Tablets [employer] Gibbons: [id number] Pharmacy: [id number] Fax scanned in to pt's chart for our records. Wellington Castaneda RN 11/05/2023 3:43 PM Signed Prior auth completed [id number] Allergies As of Date: 11/05/2023 Noted Allergy Reaction PENICILLINS 07/04/2006 2 - Rash Date Reviewed: 10/04/2023 Reviewed by: Hayley Vivas RN - Fully Assessed Reason for Visit: Insurance Authorization [[id number]] Prescriptions as of 11/05/2023 - HYDROcodone-acetamino phen (NORCO) 5-325 mg per tablet Take 1 tablet by mouth two times a day for 7 days. - gabapentin (NEURONTIN) 300 mg capsule Take 1 capsule by mouth every 8 hours for 30 days. - lidocaine (LIDODERM) 5 % Take as instructed on package - acetaminophen (TYLENOL) 325 mg tablet 2 tablets by ORAL/FEEDING TUBE route every 6 hours as needed for pain. - carvedilol (COREG) 25 mg tablet Take 1 tablet by mouth two times a day with meals. - furosemide (LASIX) 40 mg tablet Take 40 mg by mouth once daily. - diclofenac (VOLTAREN ARTHRITIS PAIN) 1 % topical gel Apply 2 g to affected area two times a day. - tiZANidine (ZANAFLEX) 2 mg tablet Take 3 tablets by mouth every 8 hours. - senna-docusate (SENNA-S) 8.6-50 mg per tablet Take 2 tablets by mouth two times a day. Problem List As Of Date 11/05/2023 Noted Resolved BENIGN NEOPLASM SKIN NEC-exam [D23.9] [...] and swelling of lower extremity [M79.606, *09/08/2023 Low back pain [M54.50] 10/02/2023 Encounter Status:Closed by WELLINGTON CASTANEDA on 11/05/23 [facility] Telephone (SPNSMN) BRADEN RODRIGUEZ ([id number]) 1955 Date Time Provider Department 11/05/23 ALFONSO LOYD [facility] During your visit today, we recorded the following information about you: Mann Benavides 11/05/2023 12:41 PM Signed [facility] re Rx Refill, needs a Pre-auth because insurance only cover 2 refills. Pls do the pre-auth through: covermymeds. The gibbons: [id number] (low/upper is ok). Pls let [facility] know once it's approved by call [phone] Wellington Castaneda RN 11/05/2023 3:44 PM Signed Prior auth completed, awaiting approval Allergies As of Date: 11/05/2023 Noted Allergy Reaction PENICILLINS 07/04/2006 2 - Rash Date Reviewed: 10/04/2023 Reviewed by: Hayley Vivas RN - Fully Assessed Reason for Visit: Refill Request [94] Visit Diagnosis:Post-op pain [G89.18] Order(s):HYDROcodone- acetaminophen (NORCO) 5-325 mg per tabletTake 1 tablet by mouth two times a day for 7 days.Disp: 14 tabletRfl: 0 Prescriptions as of 11/05/2023 - HYDROcodone-acetamino phen (NORCO) 5-325 mg per tablet Take 1 tablet by mouth two times a day for 7 days. - gabapentin (NEURONTIN) 300 mg capsule Take 1 capsule by mouth every 8 hours for 30 days. - lidocaine (LIDODERM) 5 % Take as instructed on package - acetaminophen (TYLENOL) 325 mg tablet 2 tablets by ORAL/FEEDING TUBE route every 6 hours as needed for pain. - carvedilol (COREG) 25 mg tablet Take 1 tablet by mouth two times a day with meals. - furosemide (LASIX) 40 mg tablet Take 40 mg by mouth once daily. - diclofenac (VOLTAREN ARTHRITIS PAIN) 1 % topical gel Apply 2 g to affected area two times a day. - tiZANidine (ZANAFLEX) 2 mg tablet Take 3 tablets by mouth every 8 hours. - senna-docusate (SENNA-S) 8.6-50 mg per tablet Take 2 tablets by mouth two times a day. Problem List As Of Date 11/05/2023 Noted Resolved BENIGN NEOPLASM SKIN NEC-exam [D23.9] [...] and swelling of lower extremity [M79.606, *09/08/2023 Low back pain [M54.50] 10/02/2023 Prescriptions ordered this encounter Disp Refills Start End HYDROCODONE 5 MG-ACETAMINOPHEN 325 M* 14 t* 0 11/05/2023 11/12/2023 Route: ORAL Sig: Take 1 tablet by mouth two times a day for 7 days. Medications Discontinued During This Encounter Prescriptions - HYDROcodone-acetamino phen (NORCO) 5-325 mg per tablet (Discontinued) Take 1 tablet by mouth every 8 hours as needed for pain for up to 7 days. Encounter Status:Closed by ALFONSO LOYD on 11/05/23 [facility] 10-16-2023 [facility] Telephone (NIQ) BRADEN RODRIGUEZ ([id number]) 1955 Date Time Provider Department 10/16/23 KATHERINE KEITH During your visit today, we recorded the following information about you: Vanessa Aguirre 10/16/2023 10:24 AM Signed Naye from Dr. Ester Cain's office called. Pt was seen yesterday complaining of the side effect from Gabapentin and the doctor change the medication to Lyrica 50 mg. Wellington Castaneda RN 10/16/2023 4:59 PM Signed Noted medication update. No Issue for change from surgical standpoint. Allergies As of Date: 10/16/2023 Noted Allergy Reaction PENICILLINS 07/04/2006 2 - Rash Date Reviewed: 10/04/2023 Reviewed by: Hayley Vivas, PATRICIA - Fully Assessed Reason for Visit: medication [Other] Prescriptions as of 10/16/2023 - oxyCODONE IR (ROXICODONE) 5 mg immediate release tablet Take 1 tablet by mouth every 6 hours as needed for pain for up to 7 days. - gabapentin (NEURONTIN) 300 mg capsule Take 1 capsule by mouth every 8 hours for 30 days. - lidocaine (LIDODERM) 5 % Take as instructed on package - acetaminophen (TYLENOL) 325 mg tablet 2 tablets by ORAL/FEEDING TUBE route every 6 hours as needed for pain. - carvedilol (COREG) 25 mg tablet Take 1 tablet by mouth two times a day with meals. - furosemide (LASIX) 40 mg tablet Take 40 mg by mouth once daily. - diclofenac (VOLTAREN ARTHRITIS PAIN) 1 % topical gel Apply 2 g to affected area two times a day. - tiZANidine (ZANAFLEX) 2 mg tablet Take 3 tablets by mouth every 8 hours. - senna-docusate (SENNA-S) 8.6-50 mg per tablet Take 2 tablets by mouth two times a day. Problem List As Of Date 10/16/2023 Noted Resolved BENIGN NEOPLASM SKIN NEC-exam [D23.9] 08/05/2008 UNCERTAIN BEHAV NEOPL SKIN [D48.5] 08/05/2008 BENIGN NEOPLASM SKIN NOS [D23.9] 09/08/2008 SEBORRHEIC KERATOSIS NOS [L82.1] 09/08/2008 Primary hypertension [I10] 08/06/2023 History of penicillin allergy [Z88.0] 08/06/2023 SVT (supraventricular tachycardia) ([facility]) [I47.1*08/06/2023 S/P lumbar fusion [Z98.1] 08/19/2023 Acute post-operative pain [G89.18] 08/20/2023 Scoliosis of lumbar region due to degenerative *08/20/2023 Foot drop, right foot [M21.371] 08/20/2023 Intractable pain [R52] 09/08/2023 Edema of both lower extremities [R60.0] 09/08/2023 Localized swelling of lower extremity [M79.89] 09/08/2023 Pain and swelling of lower extremity [M79.606, *09/08/2023 Low back pain [M54.50] 10/02/2023 Encounter Status:Closed by WELLINGTON CASTANEDA on 10/16/23 Normal [facility] CNCOon 10-06-2023 CNCO Letter Text Normal [facility] Basic metabolic 2000 panelon 10-04-2023 Anion gap [Moles/Vol] 10 mmol/L Normal 8-15 [facility] Comment on above: Order Comment: Speci men Type: BLOOD SPECIMEN Ordering Facility: [facility] Address: [address] [place], [place] [address] Performed By: #### 2 4321-2 #### [facility] CLIA [id number] [address] [place] [address] [place] Calcium [Mass/Vol] 9.4 mg/dL Normal 8.5-10.2 [facility] Comment on above: Order Comment: Speci men Type: BLOOD SPECIMEN Ordering Facility: [facility] Address: [address] [place] [address] Performed By: #### 2 4321-2 #### [facility] CLIA [id number] [address] [place] [address] [place] Chloride [Moles/Vol] 104 mmol/L Normal 98-107 [facility] Comment on above: Order Comment: Speci men Type: BLOOD SPECIMEN Ordering Facility: [facility] Address: [address] [place] [address] Performed By: #### 2 4321-2 #### [facility] CLIA [id number] [address] [place] [address] [place] CO2 [Moles/Vol] 27 mmol/L Normal 22-30 [facility] Comment on above: Order Comment: Speci men Type: BLOOD SPECIMEN Ordering Facility: [facility] Address: [address] [place] [address] Performed By: #### 2 4321-2 #### [facility] CLIA [id number] [address] [place] [id number] [place] Creatinine [Mass/Vol] 0.83 mg/dL Normal 0.73-1.22 [facility] Comment on above: Order Comment: Speci men Type: BLOOD SPECIMEN Ordering Facility: [facility] Address: [address] [place], [place] [address] Performed By: #### 2 4321-2 #### [facility] CLIA [id number] [address] [place] [address] [place] Creatinine and Glomerular filtration rate.predicted panel (S/P/Bld) 97 mL/min/1.73m??? Normal >=60 [facility] Comment on above: Order Comment: Roberto Carlos lion Type: BLOOD SPECIMEN Ordering Facility: [facility] Address: [address] [place] [address] Result Comment: Yesica mated Glomerular Filtration Rate [...] GFR. Performed By: #### 2 4321-2 #### [facility] CLIA [id number] [address] [place] [address] [place] Glucose [Mass/Vol] 100 mg/dL High 74-99 [facility] Comment on above: Order Comment: Roberto Carlos lion Type: BLOOD SPECIMEN Ordering Facility: [facility] Address: [address] [place] [address] Result Comment: The English Diabetes Association (ADA) provides guidance for cutoff [...] Standards of Medical Care in Diabetes 2016, English Diabetes Association. Diabetes Care. 2016.39(Suppl 1). Performed By: #### 2 4321-2 #### [facility] CLIA [id number] [address] [place] [address] [place] Potassium [Moles/Vol] 3.9 mmol/L Normal 3.7-5.1 [facility] Comment on above: Order Comment: Speci men Type: BLOOD SPECIMEN Ordering Facility: [facility] Address: [address] [place] [address] Performed By: #### 2 4321-2 #### [facility] CLIA [id number] [address] [place] [address] [place] Sodium [Moles/Vol] 141 mmol/L Normal 136-144 [facility] Comment on above: Order Comment: Speci men Type: BLOOD SPECIMEN Ordering Facility: [facility] Address: [address] [place] [address] Performed By: #### 2 4321-2 #### [facility] CLIA [id number] [address] [place] [address] [place] Urea nitrogen [Mass/Vol] 15 mg/dL Normal 9-24 [facility] Comment on above: Order Comment: Speci men Type: BLOOD SPECIMEN Ordering Facility: [facility] Address: [address] [place] [address] Performed By: #### 2 4321-2 #### [facility] CLIA [id number] [address] [place] [address] [place] CBC panel Auto (Bld)on 10-03 Erythrocyte distribution width (RBC) [Ratio] 12.4 % Normal 11.5-15.0 [facility] Comment on above: Order Comment: Speci men Type: BLOOD SPECIMEN Ordering Facility: [facility] Address: [address] [place] [address] Performed By: #### 5 8410-2 #### [facility] CLIA [id number] [address] [place] [address] [place] Hematocrit (Bld) [Volume fraction] 37.6 % Low 39.0-51.0 [facility] Comment on above: Order Comment: Speci men Type: BLOOD SPECIMEN Ordering Facility: [facility] Address: [address] [place] [address] Performed By: #### 5 8410-2 #### [facility] CLIA [id number] [address] [place] [address] [place] Hemoglobin (Bld) [Mass/Vol] 12.1 g/dL Low 13.0-17.0 [facility] Comment on above: Order Comment: Speci men Type: BLOOD SPECIMEN Ordering Facility: [facility] Address: [address] [place] [address] Performed By: #### 5 8410-2 #### [facility] CLIA [id number] [address] [place] [address] [place] MCH (RBC) [Entitic mass] 32.5 pg Normal 26.0-34.0 [facility] Comment on above: Order Comment: Speci men Type: BLOOD SPECIMEN Ordering Facility: [facility] Address: [address] [place] [address] Performed By: #### 5 8410-2 #### [facility] CLIA [id number] [address] [place] [address] [place] MCHC (RBC) [Mass/Vol] 32.2 g/dL Normal 30.5-36.0 [facility] Comment on above: Order Comment: Speci men Type: BLOOD SPECIMEN Ordering Facility: [facility] Address: [address] [place] [address] Performed By: #### 5 8410-2 #### [facility] CLIA [id number] [address] [place] [address] [place] MCV (RBC) [Entitic vol] 101.1 fL High 80.0-100.0 [facility] Comment on above: Order Comment: Speci men Type: BLOOD SPECIMEN Ordering Facility: [facility] Address: [address] [place] [address] Performed By: #### 5 8410-2 #### [facility] CLIA [id number] [address] [place] [address] [place] Nucleated RBC (Bld) [#/Vol] 10*3/uL Normal <0.01 [facility] Comment on above: Order Comment: Speci men Type: BLOOD SPECIMEN Ordering Facility: [facility] Address: [address] [place] [address] Performed By: #### 5 8410-2 #### [facility] CLIA [id number] [address] [place] [address] [place] Platelet mean volume (Bld) [Entitic vol] 10.1 fL Normal 9.0-12.7 [facility] Comment on above: Order Comment: Speci men Type: BLOOD SPECIMEN Ordering Facility: [facility] Address: [address] [place] [address] Performed By: #### 5 8410-2 #### [facility] CLIA [id number] [address] [place] [address] [place] Platelets (Bld) [#/Vol] 352 10*3/uL Normal 150-400 [facility] Comment on above: Order Comment: Speci men Type: BLOOD SPECIMEN Ordering Facility: [facility] Address: [address] [place] [address] Performed By: #### 5 8410-2 #### [facility] CLIA [id number] [address] [place] [address] [place] RBC (Bld) [#/Vol] 3.72 10*6/uL Low 4.20-6.00 [facility] Comment on above: Order Comment: Speci men Type: BLOOD SPECIMEN Ordering Facility: [facility] Address: [address] [place] [address] Performed By: #### 5 8410-2 #### [facility] CLIA [id number] [address] [place] [address] [place] WBC (Bld) [#/Vol] 10.84 10*3/uL Normal 3.70-11.00 [facility] Comment on above: Order Comment: Speci men Type: BLOOD SPECIMEN Ordering Facility: [facility] Address: [address] [place] [address] Performed By: #### 5 8410-2 #### [facility] CLIA [id number] [address] [place] [address] [place] [address] [place] THERAPY NTon 10-04-2023 THERAPY NT HNO ID: [id number] Author: RUBÉN HILLS, PT, DPT Service: Physical Therapy Author Type: Physical Therapist Type: Therapy (PT/OT/Speech/Resp) Filed: 10/04/2023 11:16 Note Text: Physical Therapy Treatment Summary SERVICE DATE: 10/04/2023 SERVICE TIME: 1053 to 1105 ROOM: [place] [address] PT 6 Clicks Score: 24 DISCHARGE RECOMMENDATIONS [...] drop, has AFOs. 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 SUBJECTIVE I'm doing better THERAPY DIAGNOSIS Reduced mobility-other TREATMENT INTERVENTIONS Gait Training (65940) Timed Code Treatment (minutes): 12 Skilled Treatment [...] October 04, 2023 TIME: 11:16 AM Normal [facility] Basic metabolic 2000 panelon 10-03-2023 Anion gap [Moles/Vol] 10 mmol/L Normal 8-15 [facility] Comment on above: Order Comment: Speci men Type: BLOOD SPECIMEN Ordering Facility: [facility] Address: [address] [place] [address] Performed By: #### 2 4321-2 #### [facility] CLIA [id number] [address] [place] [address] [place] Calcium [Mass/Vol] 9.0 mg/dL Normal 8.5-10.2 [facility] Comment on above: Order Comment: Speci men Type: BLOOD SPECIMEN Ordering Facility: [facility] Address: [address] [place] [address] Performed By: #### 2 4321-2 #### [facility] CLIA [id number] [address] [place] [address] [place] Chloride [Moles/Vol] 105 mmol/L Normal 98-107 [facility] Comment on above: Order Comment: Speci men Type: BLOOD SPECIMEN Ordering Facility: [facility] Address: [address] [place] [address] Performed By: #### 2 4321-2 #### [facility] CLIA [id number] [address] [place] [address] [place] CO2 [Moles/Vol] 23 mmol/L Normal 22-30 [facility] Comment on above: Order Comment: Smitai ayad Type: BLOOD SPECIMEN Ordering Facility: [facility] Address: [address] [place] [address] Performed By: #### 2 4321-2 #### [facility] CLIA [id number] [address] [place] [address] [place] Creatinine [Mass/Vol] 0.92 mg/dL Normal 0.73-1.22 [facility] Comment on above: Order Comment: Smitai men Type: BLOOD SPECIMEN Ordering Facility: [facility] Address: [address] [place] [address] Performed By: #### 2 4321-2 #### [facility] CLIA [id number] [address] [place] [address] [place] Creatinine and Glomerular filtration rate.predicted panel (S/P/Bld) 92 mL/min/1.73m??? Normal >=60 [facility] Comment on above: Order Comment: Roberto Carlos men Type: BLOOD SPECIMEN Ordering Facility: [facility] Address: [address] [place] [address] Result Comment: Yesica mated Glomerular Filtration Rate [...] GFR. Performed By: #### 2 4321-2 #### [facility] CLIA [id number] [address] [place] [address] [place] Glucose [Mass/Vol] 121 mg/dL High 74-99 [facility] Comment on above: Order Comment: Smitai men Type: BLOOD SPECIMEN Ordering Facility: [facility] Address: [address] [id number] Result Comment: The English Diabetes Association (ADA) provides guidance for cutoff [...] Standards of Medical Care in Diabetes 2016, English Diabetes Association. Diabetes Care. 2016.39(Suppl 1). Performed By: #### 2 4321-2 #### [facility] CLIA [id number] [address] [place] [address] [place] Potassium [Moles/Vol] 4.0 mmol/L Normal 3.7-5.1 [facility] Comment on above: Order Comment: Speci men Type: BLOOD SPECIMEN Ordering Facility: [facility] Address: [address] [place] [address] Performed By: #### 2 4321-2 #### [facility] CLIA [id number] [address] [place] [address] [place] Sodium [Moles/Vol] 138 mmol/L Normal 136-144 [facility] Comment on above: Order Comment: Speci men Type: BLOOD SPECIMEN Ordering Facility: [facility] Address: [address] [place] [address] Performed By: #### 2 4321-2 #### [facility] CLIA [id number] [address] [place] [address] [place] Urea nitrogen [Mass/Vol] 21 mg/dL Normal 9-24 [facility] Comment on above: Order Comment: Speci men Type: BLOOD SPECIMEN Ordering Facility: [facility] Address: [address] [place] [address] Performed By: #### 2 4321-2 #### [facility] CLIA [id number] [address] [place] [address] [place] CBC panel Auto (Bld)on 10-02 Erythrocyte distribution width (RBC) [Ratio] 11.9 % Normal 11.5-15.0 [facility] Comment on above: Order Comment: Speci men Type: BLOOD SPECIMEN Ordering Facility: [facility] Address: [address] [place] [address] Performed By: #### 2 4321-2 #### [facility] CLIA [id number] [address] [place] [address] [place] Hematocrit (Bld) [Volume fraction] 35.0 % Low 39.0-51.0 [facility] Comment on above: Order Comment: Speci men Type: BLOOD SPECIMEN Ordering Facility: [facility] Address: [address] [place] [address] Performed By: #### 2 4321-2 #### [facility] CLIA [id number] [address] [place] [address] [place] Hemoglobin (Bld) [Mass/Vol] 11.5 g/dL Low 13.0-17.0 [facility] Comment on above: Order Comment: Speci men Type: BLOOD SPECIMEN Ordering Facility: [facility] Address: [address] [place] [address] Performed By: #### 2 4321-2 #### [facility] CLIA [id number] [address] [place] [address] [place] MCH (RBC) [Entitic mass] 32.0 pg Normal 26.0-34.0 [facility] Comment on above: Order Comment: Speci men Type: BLOOD SPECIMEN Ordering Facility: [facility] Address: [address] [place] [address] Performed By: #### 2 4321-2 #### [facility] CLIA [id number] [address] [place] [address] [place] MCHC (RBC) [Mass/Vol] 32.9 g/dL Normal 30.5-36.0 [facility] Comment on above: Order Comment: Speci men Type: BLOOD SPECIMEN Ordering Facility: [facility] Address: [address] [place] [address] Performed By: #### 2 4321-2 #### [facility] CLIA [id number] [address] [place] [address] [place] MCV (RBC) [Entitic vol] 97.5 fL Normal 80.0-100.0 [facility] Comment on above: Order Comment: Speci men Type: BLOOD SPECIMEN Ordering Facility: [facility] Address: [address] [place] [address] Performed By: #### 2 4321-2 #### [facility] CLIA [id number] [address] [place] [address] [place] Nucleated RBC (Bld) [#/Vol] 10*3/uL Normal <0.01 [facility] Comment on above: Order Comment: Speci men Type: BLOOD SPECIMEN Ordering Facility: [facility] Address: [address] [place] [address] Performed By: #### 2 4321-2 #### [facility] CLIA [id number] [address] [place] [address] [place] Platelet mean volume (Bld) [Entitic vol] 10.4 fL Normal 9.0-12.7 [facility] Comment on above: Order Comment: Speci men Type: BLOOD SPECIMEN Ordering Facility: [facility] Address: [address] [place] [address] Performed By: #### 2 4321-2 #### [facility] CLIA [id number] [address] [place] [address] [place] Platelets (Bld) [#/Vol] 354 10*3/uL Normal 150-400 [facility] Comment on above: Order Comment: Speci men Type: BLOOD SPECIMEN Ordering Facility: [facility] Address: [address] [place] [address] Performed By: #### 2 4321-2 #### [facility] CLIA [id number] [address] [place] [address] [place] RBC (Bld) [#/Vol] 3.59 10*6/uL Low 4.20-6.00 [facility] Comment on above: Order Comment: Speci men Type: BLOOD SPECIMEN Ordering Facility: [facility] Address: [address] [place] [address] Performed By: #### 2 4321-2 #### [facility] CLIA [id number] [address] [place] [address] [place] WBC (Bld) [#/Vol] 11.20 10*3/uL High 3.70-11.00 [facility] Comment on above: Order Comment: Speci men Type: BLOOD SPECIMEN Ordering Facility: [facility] Address: [address] [place] [address] Performed By: #### 2 4321-2 #### [facility] CLIA [id number] [address] [place] [address] [place] CNDSon 10-03-2023 CNDS HNO ID: [id number] Author: KATHERINE KEITH MD Service: Neurosurgery Author Type: Fellow Type: Discharge Summary Filed: 10/07/2023 09:59 Note Text: Attestation signed by Katherine Keith MD at 10/07/2023 9:59 AM Katherine Keith MD DISCHARGE SUMMARY NEUROLOGICAL [facility] PATIENT NAME: Braden Rodriguez ADMISSION DATE: 10/02/2023 DISCHARGE DATE: 10/04/2023 Attending Physician: Katherine Keith MD PCP: Ester Cain MD [phone] Code Status: Prior Discharged Against Medical Advice? [...] Primary * Hui Whyte MD - Fellow Extractions Technician: Lindsay Lew RN Extractions Technician (Relief): Magaly Brasher RN Scrub Orientee: Indiana Orantes RN Scrub Person: Brandi Campos ST Scrub Person (Relief): Lindsay Lew RN Procedures During Hospitalization: No procedures performed Hospital Course: The patient was electively admitted to the [facility] with lumbar radiculopathy. After being optimized for surgery by the PACE teams, Braden L Michael was identified and brought into the Operating [...] The patient was then transferred up to [place] [address]/H060- hospital room for postoperative management. Patient was [...] Problems as of 10/04/2023 Noted - Resolved [facility] Primary hypertension 08/06/2023 - Present Yes * [...] Attending Provider: Katherine Keith MD Primary Service: Saray Vigil APRN.VISCOSITY TESTER Patient's pain was well controlled with Oral [...] 97.[address] RD (more content not included)... Normal [facility] THERAPY NTon 10-03-2023 THERAPY NT HNO ID: [id number] Author: XIN BUTLER OT/L Service: Occupational Therapy Author Type: Occupational Therapist Type: Therapy (PT/OT/Speech/Resp) Filed: 10/03/2023 09:40 Note Text: OCCUPATIONAL THERAPY MISSED VISIT SERVICE DATE: 10/03/2023 SERVICE TIME: 936 ROOM: [place] [address] Patient not seen due to no skilled [...] October 03, 2023 TIME: 9:38 AM Normal [facility] THERAPY NT HNO ID: [id number] Author: RBUÉN HILLS, PT, DPT Service: Physical Therapy Author Type: Physical Therapist Type: Therapy (PT/OT/Speech/Resp) Filed: 10/03/2023 09:23 Note Text: Physical Therapy Evaluation Summary SERVICE DATE: 10/03/2023 SERVICE TIME: 824 to 904 ROOM: [place] [address] PT 6 Clicks Score: 23 DISCHARGE RECOMMENDATIONS [...] drop, has 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 SUBJECTIVE We're not doing this right now. I still have the catheter in and I haven't eaten breakfast THERAPY DIAGNOSIS Reduced mobility-other TREATMENT INTERVENTIONS Evaluation, Therapeutic Activity (82689) Timed Code Treatment (minutes): 25 Skilled Treatment [...] October 03, 2023 TIME: 9:23 AM Normal [facility] ANES POSTPROC EVALon 024 ANES POSTPROC EVAL HNO ID: [id number] Author: ANITA VILLAFUERTE MD Service: ? Author Type: Anesthesiologist Type: Anesthesia Postprocedure Evaluation Filed: 10/02/2023 18:47 Note Text: POST ANESTHESIA EVALUATION NOTE : 1955 Procedure Summary Date: 10/02/23 Room / Location: [place] [address] / [facility]IN [facility] Anesthesia Start: 1434 Anesthesia Stop: 1800 Procedures: [...] October 02, 2023 TIME: 6:46 PM CSN: [id number] Normal [facility] ANES PRE-OPon 10-02-2023 ANES PRE-OP HNO ID: [id number] Author: FELICIA PEREZ MD Service: ? Author [...] LUMBAR FUSION 3-6 LEVELS (Spine Lumbar) Location: MAIN [facility] Surgeons: Katherine Keith MD [...] October 02, 2023 TIME: 11:30 AM CSN: [id number] Normal [facility] BRIEF OP NOTon 10-02-2023 BRIEF OP NOT HNO ID: [id number] Author: KATHERINE KEITH MD Service: Neurosurgery Author Type: Physician Type: Brief Op Note Filed: 10/27/2023 06:32 Note Text: BRIEF OP NOTE LOG ID: [id number] Surgery/Procedure Date: 10/02/2023 Incision/Procedure Start Time: 3:13 PM Incision Close/Procedure End Time: Incision/Procedure Start Time: 3:13 PM Incision Close/Procedure End Time: 5:29 PM Surgeon(s)/Procedural ist(s) and Emergency Technician(s): Surgeon(s) and Role: * Katherine Keith MD - Primary * Hui Whyte MD - Fellow Pre-Op/Pre-Procedure Diagnosis: lumbar radiculopathy Post-Op/Post-Procedur e Diagnosis: same Procedure(s): Right L4/5 facetectomy Anesthesia: General Estimated Blood Loss: 62 mls Specimens Removed: * No specimens in log * Drain: None Complications: None SIGNATURE: Hui Whyte MD PATIENT NAME: Braden Rodriguez DATE: October 02, 2023 TIME: 5:35 PM PAGER/CONTACT #: [phone] Patient was accompanied to the next level of care by a licensed practitioner from the surgical team pending completion of this brief op note (or operative note) Please page [phone] ([phone]) from 5p-6a and on weekends for any issues. Between 5PM to 7AM, or if urgent, please page the orthopaedic on-call resident at: [phone] ([phone]) for [facility] patients [phone] for [facility] patients Normal [facility] OPERATIVE NOon 10-02-2023 OPERATIVE NO HNO ID: [id number] Author: KATHERINE KEITH MD Service: Neurosurgery Author Type: Physician Type: Operative Report Filed: 10/27/2023 13:01 Note Text: [facility] - Operative Report [address] [place] [address] [place] BRADEN RODRIGUEZ : 1955 AGE: 68. SEX: M PATIENT TYPE: I HOSP [facility] [place] [facility] LOCATION: [id number] ATTENDING PHYSICIAN: Katherine Keith M.D. [facility] NUMBER: [id number] DATE OF SURGERY/PROCEDURE: 10/02/2023 INCISION/PROCEDURE START TIME: 3:13 p.m. INCISION CLOSE/PROCEDURE END TIME: 5:29 p.m. PREOPERATIVE DIAGNOSIS: Right lower extremity foot drop and recalcitrant radiculopathy. POSTOPERATIVE DIAGNOSIS: Right lower extremity foot drop and recalcitrant radiculopathy. SURGEON: Katherine Keith M.D. ACCELERATOR TECHNICIAN: Dr. Hui Whyte. Dr. Whyte assisted in the absence of a qualified resident being available. SURGERY/PROCEDURE: Exploration of spinal fusion at the L4-L5 most caudal level with a right-sided complete facetectomy of L4-L5 for decompressing the exiting nerve root. ANESTHESIA: General endotracheal anesthesia. ESTIMATED BLOOD LOSS: 60 mL. SPECIMENS: None. COMPLICATIONS: None apparent intraoperatively. DRAINS: None. OPERATIVE INDICATIONS: A very pleasant 68-year-old man, who underwent the aforementioned procedure for the aforementioned diagnosis. The patient had previously underwent multilevel lateral fusion and a right lower extremity painless footdrop transition to a painful radiculopathy. Risks, benefits, alternative treatments, and expected outcomes of the aforementioned surgery were discussed in comprehensive detail with the patient and the patient's family preoperatively and consent was written on day of surgery without change in operative plan. DESCRIPTION OF PROCEDURE: The patient was brought to the operating room theater. Appropriate huddle was performed per hospital guideline standards. After the huddle was performed, the patient anesthetized per Anesthesia documentation, flipped prone on Sav table with all bony prominences padded. The previous incision was prepped and draped in a sterile fashion. Audible time-out was performed. An incision was made and the right-sided screws and facet joint at 4-5 was exposed subperiosteally. Localization ensued via [facility] guidelines. After that, the facet joint was fully exposed and removed with a high-speed pneumatic drill after curette was used to develop theplane between the dura and the facet joint due to previous surgery. The facet joint was removed. The exiting traversing root was identified and skeletonized and cleared of all compression. Of note, there was a ventral osteophyte that was removed that resulted in the nerve orienting in a more relaxed position, status post decompression. The wound hemostasis was achieved meticulously. Copious irrigation was used. X-rays were taken to demonstrate the foraminal presence of the surgery. The wound was closed in layers without a drain. I performed the surgery aside from the initial positioning, opening and closing, which was done by Dr. Whyte under my direct supervision. Katherine Keith M.D. DP:[id number] /[id number] Normal [facility] TYPE + SCREENon 10-02-2023 ABO O Normal [facility] Comment on above: Order Comment: Speci men Type: BLOOD SPECIMENOrdering Facility: [facility] Address: [address] [place] [address] Performed By: #### T SCR ####CC MAIN BLOOD BANKCLIA [id number] [address] [place] HISTORICAL AB SCR STATUS Negative Normal [facility] Comment on above: Order Comment: Speci men Type: BLOOD SPECIMENOrdering Facility: [facility] Address: [address] [place] [address] Performed By: #### T SCR ####CC MAIN BLOOD BANKCLIA [id number] [address] [place] Rh Nom (Bld) Negative Normal [facility] Comment on above: Order Comment: Speci men Type: BLOOD SPECIMENOrdering Facility: [facility] Address: [address] [place] [address] Performed By: #### T SCR ####CC MAIN BLOOD BANKCLIA [id number] [address] [place] TYPE AND SCREEN EXPIRATION 10/05/2023 23:59 Normal [facility] Comment on above: Order Comment: Speci men Type: BLOOD SPECIMENOrdering Facility: [facility] Address: [address] [place] [address] Performed By: #### T SCR ####CC [facility] [id number] [facility] [place] [address] [place] XR LUMBAR SPECIFY 1Von 10-01 XR LUMBAR [...] levels lower lumbar spine. IMPRESSION: Intraoperative imaging. Biztalk Software Developer: CITLALLI Transcribe Date/Time: Oct 02 2023 4:35P Dictated by : MANA TSAI MD This examination was interpreted and the report reviewed and electronically signed by: MANA TSAI MD on Oct 02 2023 4:37PM EST [id number] Normal [facility] CNNURSEon 09-30-2023 CNNURSE Nurse Visit (SPNSMN) BRADEN RODRIGUEZ ([id number]) 1955 M Date Time Provider Department 09/30/23 10:00 AM [facility] CASTANEDA SPZEMN During your visit today, we recorded the following information about you: Wellington Castaneda, PATRICIA 09/30/2023 10:11 AM Signed Neuro SPINE CARE COORDINATION PRE-OP VISIT Met with patient via phone for pre op education. Given both written and verbal instructions re : Skin prep, wound care, pain management and post op restrictions. Provided to patient: [facility] Surgery Guide, skin prep supplies, Spine Surgery Pre/post op education packet. Yes Reviewed with patient to report to desk J19 for surgery ? Yes. Reviewed with the patient to call [phone] the day before to get surgery report [...] Encounter Status:Closed by [facility] CASTANEDA on 09/30/23 [facility]AD[facility]ODRIGUE[facility] ([id number]) 1955 Date Time Provider Department 09/30/23 JULIANNE BROCK ([facility]) OTREMN During your visit today, we [...] Encounter Status:Closed by JULIANNE BROCK on 09/30/23 Normal [facility] CNPNon 09-24-2023 CNPN Telephone (SPNSMN) BRADEN RODRIGUEZ ([id number]) 1955 Date Time Provider Department 09/24/23 ANGELINA MAJOR SPNSMN During your visit today, we recorded [...] MD OR Surgery Date: 10/02/23 Health Insurance: [employer] [facility] Financial Resources: Retired Primary Contact: Extended Emergency Contact Information Primary Emergency Contact: Marycarmen Rodriguez Address: [address] [place] [address] [place] Mobile Relation: Spouse Secondary Emergency Contact: NORA RODRIGUEZ Mobile Relation: Son Other Important Patient Contacts: None Patient/Representativ e Stated Goals: To have reduction in pain, To have reduction in symptoms, To improve my functional status, and To return home to life as it was Operating Engineer needed?: No ADVANCE DIRECTIVES: Does Patient Have [...] none reported Do you have a community fundraiser contact through your insurance or WRAAA?: No Has the Patient Been in a Chcf Facility in the Past 30 days? No FREEDOM OF CHOICE: Level of Care Discussed: Home Care Financial Disclosure Provided: No Financial Disclaimer Provided: No Provider List: Home Care Provider list within the patient's requested geographic area shared with the patient/family: Yes - Within [address] of [address] [place] [address] Provider Choices Collected Home Health: no prefernece [...] by ANGELINA MAJOR on 09/24/23 [facility] Linda 09-16-2023 CNPN Telephone (NIQ) BRADEN RODRIGUEZ ([id number]) 1955 M Date Time Provider Department 09/16/23 KATHERINE KEITH During your visit today, we recorded the following information about you: Speed Communication Clerk, Melia 09/16/2023 3:19 PM Signed Call received for Katherine Keith MD regarding Braden Rodriguez. Caller: Other: Devin with [facility] Patient Identified by Name and : Yes Reason for Call: Devin is calling to notify Dr. Keith that patient has not been seen for PT Devin states patient will not return calls Is there any additional information the provider should know? No, no response needed Last Office Visit: 09/04/2023 Next scheduled appointment: 10/08/2023 Best number to reach caller: Devin [phone] Best time to reach caller: 9 am till 5 pm Is it OK to leave a detailed voice message? Yes Melia Ochoa Communication ClerkWellington Kapoor, PATRICIA 09/16/2023 3:37 PM Signed Attempted to return [...] Status:Closed by WELL[facility] CASTANEDA on 09/16/23 Normal [facility] CNCOon 09-15-2023 CNCO Letter Text Normal [facility] ALLIED HEALTHon 09-10-2023 ALLIED HEALTH HNO ID: [id number] Author: ROSAMARIA DOLAN RT(R) Service: Radiology Author [...] PATIENT PRESENTS WITH AN IMPLANTABLE OR ATTACHED ORDER MANAGEMENT SPECIALIST: No RADIOLOGY DEPARTMENT: MR; Exam(s) Completed: Spine: Lumbar spine PERIPHERAL IV DATA: Inpatient: see LDA documentation SIGNED BY: Rosamaria Dolan RT(R) September 10, 2023 1:39 PM Normal [facility] Basic metabolic 2000 panelon 09-10-2023 Anion gap [Moles/Vol] 10 mmol/L Normal 8-15 [facility] Comment on above: Order Comment: Speci men Type: BLOOD SPECIMEN Ordering Facility: [facility] Address: [address] [place] [address] Performed By: #### 2 4321-2 #### [facility] CLIA [id number] [address] [place] [address] [place] Calcium [Mass/Vol] 9.6 mg/dL Normal 8.5-10.2 [facility] Comment on above: Order Comment: Speci men Type: BLOOD SPECIMEN Ordering Facility: [facility] Address: [address] [place] [address] Performed By: #### 2 4321-2 #### [facility] CLIA [id number] [address] [place] [address] [place] Chloride [Moles/Vol] 102 mmol/L Normal 98-107 [facility] Comment on above: Order Comment: Speci men Type: BLOOD SPECIMEN Ordering Facility: [facility] Address: [address] [place] [address] Performed By: #### 2 4321-2 #### [facility] CLIA [id number] [address] [place] [address] [place] CO2 [Moles/Vol] 27 mmol/L Normal 22-30 [facility] Comment on above: Order Comment: Speci men Type: BLOOD SPECIMEN Ordering Facility: [facility] Address: [address] [place] [address] Performed By: #### 2 4321-2 #### [facility] CLIA [id number] [address] [place], [place] [address] [place] Creatinine [Mass/Vol] 0.88 mg/dL Normal 0.73-1.22 [facility] Comment on above: Order Comment: Roberto Carlos lion Type: BLOOD SPECIMEN Ordering Facility: [facility] Address: [address] [place] [address] Performed By: #### 2 4321-2 #### [facility] CLIA [id number] [address] [place] [address] [place] Creatinine and Glomerular filtration rate.predicted panel (S/P/Bld) 95 mL/min/1.73m??? Normal >=60 [facility] Comment on above: Order Comment: Roberto Carlos lion Type: BLOOD SPECIMEN Ordering Facility: [facility] Address: [address] [place] [address] Result Comment: Yesica mated Glomerular Filtration Rate [...] GFR. Performed By: #### 2 4321-2 #### [facility] CLIA [id number] [address] [place] [address] [place] Glucose [Mass/Vol] 82 mg/dL Normal 74-99 [facility] Comment on above: Order Comment: Roberto Carlos lion Type: BLOOD SPECIMEN Ordering Facility: [facility] Address: [address] [place] [address] Result Comment: The English Diabetes Association (ADA) provides guidance for cutoff [...] Standards of Medical Care in Diabetes 2016, English Diabetes Association. Diabetes Care. 2016.39(Suppl 1). Performed By: #### 2 4321-2 #### [facility] CLIA [id number] [address] [place] [address] [place] Potassium [Moles/Vol] 4.3 mmol/L Normal 3.7-5.1 [facility] Comment on above: Order Comment: Speci men Type: BLOOD SPECIMEN Ordering Facility: [facility] Address: [address] [place] [address] Performed By: #### 2 4321-2 #### [facility] CLIA [id number] [address] [place] [address] [place] Sodium [Moles/Vol] 139 mmol/L Normal 136-144 [facility] Comment on above: Order Comment: Speci men Type: BLOOD SPECIMEN Ordering Facility: [facility] Address: [address] [place] [address] Performed By: #### 2 4321-2 #### [facility] CLIA [id number] [address] [place] [address] [place] Urea nitrogen [Mass/Vol] 22 mg/dL Normal 9-24 [facility] Comment on above: Order Comment: Speci men Type: BLOOD SPECIMEN Ordering Facility: [facility] Address: [address] [place] [address] Performed By: #### 2 4321-2 #### [facility] CLIA [id number] [address] [place] [address] [place] CASE MANAGEMon 09-10-2023 CASE MANAGEM HNO ID: [id number] Author: MAREK SOL RN Service: ? Author [...] Arrangements: Car Date of Trip: 09/10/23 Destination: [address] [place] [address] Handoff Communication: Handoff to: Primary Care Physician;Other Caregiver Primary Care Physician Name/Phone: Ester Cain MD [phone] Other Caregiver Name/Phone: [facility] Additional Information: N/A Discharge Information Row Name ED to Hosp-Admission (Current) from 09/07/2023 in HOSP MAIN H060 Home Health Care Agency [facility] Start of Care 09/12/23 Patient will discharge home today with [facility]. [facility] accepting with SOC 24-48 hrs from discharge. Contact info for HC agency placed on After Visit Summary for patient. DC paperwork sent to HC agency via [employer]. Daughter to transport. SIGNATURE: Marek Sol RN PATIENT NAME: Braden Rodriguez DATE: September 10, 2023 TIME: 3:42 PM CONTACT #: [phone] [facility] CASE MANAGEM HNO ID: [id number] Author: MAREK SOL RN Service: ? Author Type: Registered Nurse Type: Care Mgt Progress Note Filed: 09/10/2023 13:16 Note Text: CARE MANAGEMENT PROGRESS NOTE SERVICE DATE: 09/10/2023 SERVICE TIME: 1:11 PM LOS: 2 days CM Update Re-admit for right leg pain and swelling. Anticipate DC home today following MRI. Skilled for Home PT with [facility] accepting. Daughter to transport. CM will follow. SIGNATURE: Marek Sol RN PATIENT NAME: Braden Rodriguez DATE: September 10, 2023 TIME: 1:11 PM PAGER/CONTACT #: [phone] [facility] CNDSon 09-10-2023 CNDS HNO ID: [id number] Author: CHILANGO COTTO PA-C Service: Neurosurgery Author Type: Physician Emergency Technician Type: Discharge Summary Filed: 09/10/2023 15:11 Note Text: Attestation signed by Katherine Keith MD at 09/14/2023 11:01 AM Katherine Keith MD DISCHARGE SUMMARY NEUROLOGICAL [facility] PATIENT NAME: Braden Rodriguez ADMISSION DATE: 09/07/2023 DISCHARGE DATE: 09/10/2023 Attending Physician: Katherine Keith MD PCP: Ester Cain MD [phone] Code Status: Full Code Discharged Against Medical [...] Hospital Primary hypertension 08/06/2023 - Present Yes S/P [...] Provider: Katherine Keith MD Primary Service: Chilango Cotto, EFREN Patient's pain was well controlled with Oral Pain Medications. Physical Therapy was started on POD # 1. Patient progressed satisfactorily through physical therapy until discharge. Based upon the appropriate milestones the patient met during the hospital course, Physical Therapy recommended patient be discharged to home with [facility]. Relevant labs included: CBC: Recent Labs 09/07/23 2048 WBC 13.43* HB 12.5* HCT 38.1* PLT [...] Labs 09/07/232047 (more content not included)... Normal [facility] MRI LUMBAR SPINE WO IVCONon 09-10-2023 MRI [...] crest and there are 5 lumbar-type vertebrae. Biztalk Software Developer: PSCB Transcribe Date/Time: Sep 10 2023 2:41P Dictated by : NEREIDA ORTIZ MD This examination was interpreted and the report reviewed and electronically signed by: NEREIDA ORTIZ MD on Sep 10 2023 2:53PM EST [id number] Normal [facility] THERAPY NTon 09-10-2023 THERAPY NT HNO ID: [id number] Author: TERESA DE GUZMAN PT Service: Physical Therapy Author Type: Physical Therapist Type: Therapy (PT/OT/Speech/Resp) Filed: 09/10/2023 15:12 Note Text: Physical Therapy Treatment Summary SERVICE DATE: 09/10/2023 SERVICE TIME: 1412 to 1427 ROOM: [place] [address] PT 6 Clicks Score: 20 DISCHARGE RECOMMENDATIONS [...] gait and mobility-other TREATMENT INTERVENTIONS Therapeutic Activity (82768) Treatment Minutes: 15 $ Therapeutic Activity (78886) Billed Units: 1 unit Therapeutic Activity (54774) Timed Code Treatment (minutes): 15 Skilled Treatment [...] September 10, 2023 TIME: 3:12 PM Normal [facility] Magnesium SerPl-mCncon 09-08 Magnesium [Mass/Vol] 2.1 mg/dL Normal 1.7-2.3 [facility] Comment on above: Order Comment: Speci men Type: BLOOD SPECIMEN Ordering Facility: [facility] Address: [address] [place] [address] Performed By: #### 2 4362-6, 36404-6 #### [facility] CLIA [id number] [address] [place] [address] [place] Renal function 2000 panelon 09-09-2023 Albumin [Mass/Vol] 3.9 g/dL Normal 3.9-4.9 [facility] Comment on above: Order Comment: Speci men Type: BLOOD SPECIMEN Ordering Facility: [facility] Address: [address] [place] [address] Performed By: #### 2 4362-6, #### [facility] CLIA [id number] [address] [place] [address] [place] Anion gap [Moles/Vol] 13 mmol/L Normal 8-15 [facility] Comment on above: Order Comment: Speci men Type: BLOOD SPECIMEN Ordering Facility: [facility] Address: [address] [place] [address] Performed By: #### 2 4362-6, #### [facility] CLIA [id number] [address] [place] [address] [place] Calcium [Mass/Vol] 9.7 mg/dL Normal 8.5-10.2 [facility] Comment on above: Order Comment: Speci men Type: BLOOD SPECIMEN Ordering Facility: [facility] Address: [address] [place] [address] Performed By: #### 2 436-6, #### [facility] CLIA [id number] [address] [place] [address] [place] Chloride [Moles/Vol] 101 mmol/L Normal 98-107 [facility] Comment on above: Order Comment: Speci men Type: BLOOD SPECIMEN Ordering Facility: [facility] Address: [address] [place] [address] Performed By: #### 2 4362-6, #### [facility] CLIA [id number] [address] [place], [place] [address] [place] CO2 [Moles/Vol] 25 mmol/L Normal 22-30 [facility] Comment on above: Order Comment: Speci men Type: BLOOD SPECIMEN Ordering Facility: [facility] Address: [address] [place], [place] [address] Performed By: #### 2 4362-6, #### [facility] CLIA [id number] [address] [place] [address] [place] Creatinine [Mass/Vol] 0.99 mg/dL Normal 0.73-1.22 [facility] Comment on above: Order Comment: Roberto Carlos lion Type: BLOOD SPECIMEN Ordering Facility: [facility] Address: [address] [place] [address] Performed By: #### 2 4362-6, #### [facility] CLIA [id number] [address] [place] [address] [place] Creatinine and Glomerular filtration rate.predicted panel (S/P/Bld) 84 mL/min/1.73m??? Normal >=60 [facility] Comment on above: Order Comment: Roberto Carlos lion Type: BLOOD SPECIMEN Ordering Facility: [facility] Address: [address] [place] [address] Result Comment: Yesica mated Glomerular Filtration Rate [...] GFR. Performed By: #### 2 4362-6, #### [facility] CLIA [id number] [address] [place] [address] [place] Glucose [Mass/Vol] 123 mg/dL High 74-99 [facility] Comment on above: Order Comment: Roberto Carlos lion Type: BLOOD SPECIMEN Ordering Facility: [facility] Address: [address] [place] [address] Result Comment: The [place] Diabetes Association (ADA) provides guidance for cutoff [...] Standards of Medical Care in Diabetes 2016, English Diabetes Association. Diabetes Care. 2016.39(Suppl 1). Performed By: #### 2 4362-6, #### [facility] CLIA [id number] [address] [place] [address] [place] Phosphate [Mass/Vol] 3.3 mg/dL Normal 2.7-4.8 [facility] Comment on above: Order Comment: Speci men Type: BLOOD SPECIMEN Ordering Facility: [facility] Address: [address] [place] [address] Performed By: #### 2 436-6, #### [facility] CLIA [id number] [address] [place] [address] [place] Potassium [Moles/Vol] 4.4 mmol/L Normal 3.7-5.1 [facility] Comment on above: Order Comment: Speci men Type: BLOOD SPECIMEN Ordering Facility: [facility] Address: [address] [place] [address] Performed By: #### 2 436-6, #### [facility] CLIA [id number] [address] [place] [address] [place] Sodium [Moles/Vol] 139 mmol/L Normal 136-144 [facility] Comment on above: Order Comment: Speci men Type: BLOOD SPECIMEN Ordering Facility: [facility] Address: [address] [place] [address] Performed By: #### 2 4362-6, #### [facility] CLIA [id number] [address] [place], [place] [address] [place] Urea nitrogen [Mass/Vol] 25 mg/dL High 9-24 [facility] Comment on above: Order Comment: Speci men Type: BLOOD SPECIMEN Ordering Facility: [facility] Address: [address] [place] [address] Performed By: #### 2 4362-6, 24890-4 #### [facility] CLIA [id number] [address] [place] [address] [place] [address] [place] THERAPY NTon 09-09-2023 THERAPY NT HNO ID: [id number] Author: TERESA DE GUZMAN, PT Service: Physical Therapy Author Type: Physical Therapist Type: Therapy (PT/OT/Speech/Resp) Filed: 09/09/2023 13:29 Note Text: Physical Therapy Evaluation Summary SERVICE DATE: 09/09/2023 SERVICE TIME: 1033 to 1128 ROOM: [place] [address] PT 6 Clicks Score: 20 DISCHARGE RECOMMENDATIONS [...] gait and mobility-other TREATMENT INTERVENTIONS $ Evaluation-Moderate (40156) Billed Units: 1 unit Therapeutic Exercise (47591) Treatment Minutes: 15 $ Therapeutic Exercise (79158) Billed Units: 1 unit Gait Training (72281) Treatment Minutes: 25 $ Gait Training (12138) Billed Units: 2 units Evaluation, Gait Training (47757), Therapeutic Exercise (62482) Timed Code Treatment (minutes): 40 Skilled Treatment [...] September 09, 2023 TIME: 1:28 PM Normal [facility] THERAPY NT HNO ID: [id number] Author: AGA GREENE, OT/L Service: Occupational Therapy Author Type: Occupational Therapist Type: Therapy (PT/OT/Speech/Resp) Filed: 09/09/2023 12:20 Note Text: Occupational Therapy Evaluation Summary SERVICE DATE: 09/09/2023 SERVICE TIME: 1149 to 1208 ROOM: [place] [address] OT 6 Clicks Score: 20 DISCHARGE RECOMMENDATIONS Home Recommended Discharge Disposition Comments: Would benefit from Home OT to optimize independence with I/ADLs in home setting, but pt declining at this time Anticipated Discharge Needs: Physical Assist at Home, Equipment Physical Assist at Home for: Laundry, Cleaning, Meals, Shopping, Self Care, Transportation Recommended Discharge Equipment: Shower Chair, Cabin Equipment Supervisor ASSESSMENT Response to Therapy Interventions: Pain, Good Participation in Activities Pt reports difficulty with ADLs and IADLs post-op; receptive to use of bag bleacher to assist with LB ADLs, though declining [...] of Occupational Therapy, Standing Balance to Improve [place] with ADLs/Self-Care, Transfer - Sit to Stand, [...] Services Discontinued: Declines care SIGNATURE: Aga Greene OT/Lew PATIENT NAME: Braden Rodriguez DATE: September 09, 2023 TIME: 12:19 PM Normal [facility] CASE MGT INIT [facility] 2023 CASE MGT INIT [facility] HNO ID: [id number] Author: ZACHARY QUINTANA RN Service: Nursing Author Type: Registered Nurse Type: Care Mgt Initial Assessment Filed: 09/08/2023 09:49 Note Text: CARE MANAGEMENT: ASSESSMENT AND DISCHARGE PLAN SERVICE DATE: September 08, 2023 SERVICE TIME: 9:45 AM PCP: Ester Cain MD Primary Contact: Extended Emergency Contact Information Primary Emergency Contact: Marycarmen Rodriguez Address: [address] [place] [address] Mobile Relation: Spouse Admission Status: Inpatient Insurance Provider: [facility] CHOICE PLUS Discharge Planning requested by: Per [...] to go home, Increase strength, Less pain [place] of Choice Explained: Are you interested in [...] OLIF and percutaneous PSF and discharged with [facility]. Readmitted on 09/07/23 for worsening BLE edema and pain. Awaiting PT/OT recs. Per Neuro no acute surgical intervention . CM will continue to follow. SIGNATURE: Zachary Quintana RN PATIENT NAME: Braden Rodriguez DATE: September 08, 2023 TIME: 9:45 AM CONTACT #: [phone] [facility] ED PROV NOTEon 09-08-2023 ED PROV NOTE HNO ID: [id number] Author: SINCERE KUHN MD Service: Emergency Medicine [...] behavioral problems and confusion. Physical Exam Vitals [09/07/23 1914] BP Pulse Temp Temp src Resp SpO2 [...] 10.39 (*) 1.45 - 7.50 k/uL Abs Scott 1.40 (*) <0.87 k/uL All other components [...] developed and its performance characteristics determined by [facility]'s Rich Olmedo [facility] Pathology and Laboratory Medicine [place] ([facility]). It has not been cleared or approved by the FDA. -[facility] is regulated under CLIA as qualified to perform high-complexity testing. This test is used for clinical purposes. It should not be regarded as investigation (more content not included)... Normal [facility] HISTORY PHYSICALon HISTORY PHYSICAL HNO ID: [id number] Author: TREVOR FRY MD Service: Hospital Medicine Author Type: Physician Type: H&P Filed: 09/08/2023 01:47 Note Text: DEPARTMENT OF HOSPITAL MEDICINE HISTORY AND PHYSICAL EXAM SERVICE DATE: 09/08/2023 SERVICE TIME: 1:23 AM Primary Care Physician: Ester Cain MD NIGHT AND WEEKEND COVERAGE: Days: [phone], please page primary service provider on EPIC for patient issues. Nights: [phone], please page [facility] Hospitalist Night Coverage pager: [...] September 08, 2023 TIME: 1:23 AM Normal [facility] CBC W Auto Differential pane l (Bld)on 09-07-2023 Basophils (Bld) [#/Vol] 0.00 10*3/uL Normal <0.11 [facility] Comment on above: Order Comment: Roberto Carlos ilon Type: BLOOD SPECIMEN Ordering Facility: [facility] Address: [address] [place] [address] Performed By: #### 5 7021-8, 4537-7 #### [facility] CLIA [id number] [address] [place] [address] [place] Basophils/100 WBC (Bld) 0.0 % Normal [facility] Comment on above: Order Comment: Roberto Carlos lion Type: BLOOD SPECIMEN Ordering Facility: [facility] Address: [address] [place] [address] Performed By: #### 5 7021-8, 4537-7 #### [facility] CLIA [id number] [address] [place] [address] [place] Differential cell count method Nom (Bld) Manual Normal [facility] Comment on above: Order Comment: Roberto Carlos lion Type: BLOOD SPECIMEN Ordering Facility: [facility] Address: [address] [place] [address] Performed By: #### 5 7021-8, 4537-7 #### [facility] CLIA [id number] [address] [place] [address] [place] Eosinophils (Bld) [#/Vol] 0.00 10*3/uL Normal <0.46 [facility] Comment on above: Order Comment: Speci men Type: BLOOD SPECIMEN Ordering Facility: [facility] Address: [address] [place] [address] Performed By: #### 5 7021-8, 4537-7 #### [facility] CLIA [id number] [address] [place] [address] [place] Eosinophils/100 WBC (Bld) 0.0 % Normal [facility] Comment on above: Order Comment: Speci men Type: BLOOD SPECIMEN Ordering Facility: [facility] Address: [address] [place] [address] Performed By: #### 5 7021-8, 4537-7 #### [facility] CLIA [id number] [address] [place] [address] [place] Erythrocyte distribution width (RBC) [Ratio] 13.3 % Normal 11.5-15.0 [facility] Comment on above: Order Comment: Speci men Type: BLOOD SPECIMEN Ordering Facility: [facility] Address: [address] [place] [address] Performed By: #### 5 7021-8, 4537-7 #### [facility] CLIA [id number] [address] [place] [address] [place] Hematocrit (Bld) [Volume fraction] 38.1 % Low 39.0-51.0 [facility] Comment on above: Order Comment: Speci men Type: BLOOD SPECIMEN Ordering Facility: [facility] Address: [address] [place] [address] Performed By: #### 5 7021-8, 4537-7 #### [facility] CLIA [id number] [address] [place] [address] [place] Hemoglobin (Bld) [Mass/Vol] 12.5 g/dL Low 13.0-17.0 [facility] Comment on above: Order Comment: Speci men Type: BLOOD SPECIMEN Ordering Facility: [facility] Address: [address] [place], [place] [address] Performed By: #### 5 7021-8, 7-7 #### [facility] CLIA [id number] [address] [place] [address] [place] Lymphocytes (Bld) [#/Vol] 1.64 10*3/uL Normal 1.00-4.00 [facility] Comment on above: Order Comment: Speci men Type: BLOOD SPECIMEN Ordering Facility: [facility] Address: [address] [place] [address] Performed By: #### 5 7021-8, 4536-7 #### [facility] CLIA [id number] [address] [place] [address] [place] Lymphocytes/100 WBC (Bld) 12.2 % Normal [facility] Comment on above: Order Comment: Speci men Type: BLOOD SPECIMEN Ordering Facility: [facility] Address: [address] [place] [address] Performed By: #### 5 7021-8, 4536-7 #### [facility] CLIA [id number] [address] [place] [address] [place] MCH (RBC) [Entitic mass] 32.6 pg Normal 26.0-34.0 [facility] Comment on above: Order Comment: Speci men Type: BLOOD SPECIMEN Ordering Facility: [facility] Address: [address] [place] [address] Performed By: #### 5 7021-8, 4536-7 #### [facility] CLIA [id number] [address] [place] [address] [place] MCHC (RBC) [Mass/Vol] 32.8 g/dL Normal 30.5-36.0 [facility] Comment on above: Order Comment: Speci men Type: BLOOD SPECIMEN Ordering Facility: [facility] Address: [address] [place] [address] Performed By: #### 5 7021-8, 4536-7 #### [facility] CLIA [id number] [address] [place] [address] [place] MCV (RBC) [Entitic vol] 99.2 fL Normal 80.0-100.0 [facility] Comment on above: Order Comment: Speci men Type: BLOOD SPECIMEN Ordering Facility: [facility] Address: [address] [place] [address] Performed By: #### 5 7021-8, 4537-7 #### [facility] CLIA [id number] [address] [place] [address] [place] Monocytes (Bld) [#/Vol] 1.40 10*3/uL High <0.87 [facility] Comment on above: Order Comment: Speci men Type: BLOOD SPECIMEN Ordering Facility: [facility] Address: [address] [place] [address] Performed By: #### 5 7021-8, 4537-7 #### [facility] CLIA [id number] [address] [place] [address] [place] Monocytes/100 WBC (Bld) 10.4 % Normal [facility] Comment on above: Order Comment: Speci men Type: BLOOD SPECIMEN Ordering Facility: [facility] Address: [address] [place] [address] Performed By: #### 5 7021-8, 4537-7 #### [facility] CLIA [id number] [address] [place] [address] [place] Neutrophils (Bld) [#/Vol] 10.39 10*3/uL High 1.45-7.50 [facility] Comment on above: Order Comment: Speci men Type: BLOOD SPECIMEN Ordering Facility: [facility] Address: [address] [place] [address] Performed By: #### 5 7021-8, 4537-7 #### [facility] CLIA [id number] [address] [place] [address] [place] Neutrophils/100 WBC (Bld) 77.4 % Normal [facility] Comment on above: Order Comment: Speci men Type: BLOOD SPECIMEN Ordering Facility: [facility] Address: [address] [place] [address] Performed By: #### 5 7021-8, 4537-7 #### [facility] CLIA [id number] [address] [place] [address] [place] Nucleated RBC (Bld) [#/Vol] 10*3/uL Normal <0.01 [facility] Comment on above: Order Comment: Speci men Type: BLOOD SPECIMEN Ordering Facility: [facility] Address: [address] [place] [address] Performed By: #### 5 7021-8, 4537-7 #### [facility] CLIA [id number] [address] [place] [address] [place] Nucleated RBC/100 WBC (Bld) [Ratio] 0.0 /100 WBC Normal [facility] Comment on above: Order Comment: Speci men Type: BLOOD SPECIMEN Ordering Facility: [facility] Address: [address] [place] [address] Performed By: #### 5 7021-8, 4537-7 #### [facility] CLIA [id number] [address] [place] [address] [place] Platelet mean volume (Bld) [Entitic vol] 9.9 fL Normal 9.0-12.7 [facility] Comment on above: Order Comment: Speci men Type: BLOOD SPECIMEN Ordering Facility: [facility] Address: [address] [place] [address] Performed By: #### 5 7021-8, 4537-7 #### [facility] CLIA [id number] [address] [place] [address] [place] Platelets (Bld) [#/Vol] 285 10*3/uL Normal 150-400 [facility] Comment on above: Order Comment: Speci men Type: BLOOD SPECIMEN Ordering Facility: [facility] Address: [address] [place] [address] Performed By: #### 5 7021-8, 4537-7 #### [facility] CLIA [id number] [address] [place] [address] [place] Platelets Estimate (Bld) [#/Vol] Adequate Normal [facility] Comment on above: Order Comment: Speci men Type: BLOOD SPECIMEN Ordering Facility: [facility] Address: [address] [place] [address] Performed By: #### 5 7021-8, 4537-7 #### [facility] CLIA [id number] [address] [place] [address] [place] RBC (Bld) [#/Vol] 3.84 10*6/uL Low 4.20-6.00 [facility] Comment on above: Order Comment: Speci men Type: BLOOD SPECIMEN Ordering Facility: [facility] Address: [address] [place] [address] Performed By: #### 5 7021-8, 4537-7 #### [facility] CLIA [id number] [address] [place] [address] [place] RED CELL MORPH Reviewed: unremarkable Normal [facility] Comment on above: Order Comment: Speci men Type: BLOOD SPECIMEN Ordering Facility: [facility] Address: [address] [place] [address] Performed By: #### 5 7021-8, 4537-7 #### [facility] CLIA [id number] [address] [place] [address] [place] WBC (Bld) [#/Vol] 13.43 10*3/uL High 3.70-11.00 [facility] Comment on above: Order Comment: Speci men Type: BLOOD SPECIMEN Ordering Facility: [facility] Address: [address] [place] [address] Performed By: #### 5 7021-8, 4537-7 #### [facility] CLIA [id number] [address] [place] [address] [place] CONSULTon 09-07-2023 CONSULT HNO ID: [id number] Author: VIJAY DIEGO MD Service: Neurosurgery Author [...] [place]. Signature: Vijay Diego MD PGY-3, Neurosurgery [facility] On-call pager: [phone] Normal [facility] CRP SerPl-mCncon 09-07-2023 CRP [Mass/Vol] mg/L Normal <0.9 [facility] Comment on above: Order Comment: Speci men Type: BLOOD SPECIMEN Ordering Facility: [facility] Address: [address] [place] [address] Performed By: #### 2 4321-2 #### [facility] CLIA [id number] [address] [place] [address] [place] [address] [place] LUMBAR SPINE WO IVCONon 0 09-07-2023 CT LUMBAR SPINE WO IVCON * * *Final Report* * * DATE OF EXAM: Sep 07 2023 10:36PM [facility] 0508 - CT LUMBAR SPINE WO [...] vertebrae. Anatomic variant: Transitional L5 vertebral body. Np (topogram) images: No additional findings. Alignment: Mild [...] and assume there are 5 lumbar-type vertebrae. [employer] Software Developer: [email or web address] Transcribe Date/Time: Sep 07 2023 10:45P Dictated by : CHRIS BOYD, This examination was interpreted and the report reviewed and electronically signed by: CHERYL BROWN MD on Sep 07 2023 11:02PM EST [id number] Normal [facility] Comprehensive metabolic 2000 panelon 09-07-2023 Albumin [Mass/Vol] 4.0 g/dL Normal 3.9-4.9 [facility] Comment on above: Order Comment: Speci men Type: BLOOD SPECIMEN Ordering Facility: [facility] Address: [address] [place] [address] Performed By: #### 2 4321-2 #### [facility] CLIA [id number] [address] [place] [address] [place] ALP [Catalytic activity/Vol] 136 U/L High 38-113 [facility] Comment on above: Order Comment: Speci men Type: BLOOD SPECIMEN Ordering Facility: [facility] Address: [address] [place] [address] Performed By: #### 2 4321-2 #### [facility] CLIA [id number] [address] [place] [address] [place] ALT [Catalytic activity/Vol] 20 U/L Normal 10-54 [facility] Comment on above: Order Comment: Speci men Type: BLOOD SPECIMEN Ordering Facility: [facility] Address: [address] [place] [address] Performed By: #### 2 4321-2 #### [facility] CLIA [id number] [address] [place] [address] [place] Anion gap [Moles/Vol] 10 mmol/L Normal 8-15 [facility] Comment on above: Order Comment: Speci men Type: BLOOD SPECIMEN Ordering Facility: [facility] Address: [address] [place] [address] Performed By: #### 2 4321-2 #### [facility] CLIA [id number] [address] [place] [address] [place] AST [Catalytic activity/Vol] 19 U/L Normal 14-40 [facility] Comment on above: Order Comment: Speci men Type: BLOOD SPECIMEN Ordering Facility: [facility] Address: [address] [place] [address] Performed By: #### 2 4321-2 #### [facility] CLIA [id number] [address] [place] [address] [place] Bilirubin [Mass/Vol] 0.6 mg/dL Normal 0.2-1.3 [facility] Comment on above: Order Comment: Speci men Type: BLOOD SPECIMEN Ordering Facility: [facility] Address: [address] [place] [address] Performed By: #### 2 4321-2 #### [facility] CLIA [id number] [address] [place] [address] [place] Calcium [Mass/Vol] 9.7 mg/dL Normal 8.5-10.2 [facility] Comment on above: Order Comment: Speci men Type: BLOOD SPECIMEN Ordering Facility: [facility] Address: [address] [place] [address] Performed By: #### 2 4321-2 #### [facility] CLIA [id number] [address] [place] [address] [place] Chloride [Moles/Vol] 105 mmol/L Normal 98-107 [facility] Comment on above: Order Comment: Speci men Type: BLOOD SPECIMEN Ordering Facility: [facility] Address: [address] [place] [address] Performed By: #### 2 4321-2 #### [facility] CLIA [id number] [address] [place] [address] [place] CO2 [Moles/Vol] 26 mmol/L Normal 22-30 [facility] Comment on above: Order Comment: Speci men Type: BLOOD SPECIMEN Ordering Facility: [facility] Address: [address] [place] [address] Performed By: #### 2 4321-2 #### [facility] CLIA [id number] [address] [place] [address] [place] Creatinine [Mass/Vol] 0.93 mg/dL Normal 0.73-1.22 [facility] Comment on above: Order Comment: Speci men Type: BLOOD SPECIMEN Ordering Facility: [facility] Address: [address] [place] [address] Performed By: #### 2 4321-2 #### [facility] CLIA [id number] [address] [place] [address] [place] Creatinine and Glomerular filtration rate.predicted panel (S/P/Bld) 91 mL/min/1.73m??? Normal >=60 [facility] Comment on above: Order Comment: Speci men Type: BLOOD SPECIMEN Ordering Facility: [facility] Address: [address] [place] [address] Result Comment: Yesica mated Glomerular Filtration Rate [...] GFR. Performed By: #### 2 4321-2 #### [facility] CLIA [id number] [address] [place] [address] [place] Glucose [Mass/Vol] 90 mg/dL Normal 74-99 [facility] Comment on above: Order Comment: Roberto Carlos lion Type: BLOOD SPECIMEN Ordering Facility: [facility] Address: [address] [place] [address] Result Comment: The English Diabetes Association (ADA) provides guidance for cutoff [...] Standards of Medical Care in Diabetes 2016, English Diabetes Association. Diabetes Care. 2016.39(Suppl 1). Performed By: #### 2 4321-2 #### [facility] CLIA [id number] [address] [place] [address] [place] Potassium [Moles/Vol] 3.8 mmol/L Normal 3.7-5.1 [facility] Comment on above: Order Comment: Roberto Carlos lion Type: BLOOD SPECIMEN Ordering Facility: [facility] Address: [address] [place] [address] Performed By: #### 2 4321-2 #### [facility] CLIA [id number] [address] [place] [address] [place] Protein [Mass/Vol] 6.0 g/dL Low 6.3-8.0 [facility] Comment on above: Order Comment: Roberto Carlos lion Type: BLOOD SPECIMEN Ordering Facility: [facility] Address: [address] [place] [address] Performed By: #### 2 4321-2 #### [facility] CLIA [id number] [address] [place] [address] [place] Sodium [Moles/Vol] 141 mmol/L Normal 136-144 [facility] Comment on above: Order Comment: Speci men Type: BLOOD SPECIMEN Ordering Facility: [facility] Address: [address] [place] [address] Performed By: #### 2 4321-2 #### [facility] CLIA [id number] [address] [place] [address] [place] Urea nitrogen [Mass/Vol] 29 mg/dL High 9-24 [facility] Comment on above: Order Comment: Speci men Type: BLOOD SPECIMEN Ordering Facility: [facility] Address: [address] [place] [address] Performed By: #### 2 4321-2 #### [facility] CLIA [id number] [address] [place] [address] [place] ESR Westergren method (Bld) [Velocity]on 09-07-2023 ESR (Bld) [Velocity] 5 mm/h Normal 0-15 [facility] Comment on above: Order Comment: Speci men Type: BLOOD SPECIMEN Ordering Facility: [facility] Address: [address] [place] [address] Performed By: #### 5 7021-8, 4537-7 #### [facility] CLIA [id number] [address] [place] [address] [place] Magnesium SerPl-mCncon 09-06 Magnesium [Mass/Vol] 2.1 mg/dL Normal 1.7-2.3 [facility] Comment on above: Order Comment: Speci men Type: BLOOD SPECIMEN Ordering Facility: [facility] Address: [address] [place] [address] Performed By: #### 2 4321-2 #### [facility] CLIA [id number] [address] [place] [address] [place] NT-proBNP [facility] 09-06 Natriuretic peptide.B prohormone N-Terminal [Mass/Vol] 153 pg/mL High <125 [facility] Comment on above: Order Comment: Speci men Type: BLOOD SPECIMEN Ordering Facility: [facility] Address: [address] [place] [address] Performed By: #### 2 4321-2 #### [facility] CLIA [id number] [address] [place] [address] [place] US DVT LOWER BILon 4 US DVT LOWER NAVNEET * * *Final Report* * * DATE OF EXAM: Sep 07 2023 11:43PM RIU 1005 - US DVT LOWER NAVNEET / [...] of the left and right lower extremities. [employer]iz[employer] Software Developer: [email or web address] Transcribe Date/Time: Sep 07 2023 11:44P Dictated by : CHRIS BOYD, This examination was interpreted and the report reviewed and electronically signed by: BRANDON CARRILLO MD on Sep 08 2023 12:06AM EST [id number] N Normal [facility] Urinalysis complete panel (U )on 09-07-2023 Bacteria LM.HPF (Urine sed) [#/Area] Negative Normal Negative [facility] Comment on above: Order Comment: Roberto Carlos lion Type: BLOOD SPECIMEN Ordering Facility: [facility] Address: [address] [place] [address] Performed By: #### 2 4321-2 #### [facility] CLIA [id number] [address] [place] [address] [place] Bilirubin Ql (U) Negative Normal Negative [facility] Comment on above: Order Comment: Speci ayad Type: BLOOD SPECIMEN Ordering Facility: [facility] Address: [address] [place] [address] Performed By: #### 2 4321-2 #### [facility] CLIA [id number] [address] [place] [address] [place] Clarity (Unsp spec) Clear Normal Clear [facility] Comment on above: Order Comment: Speci men Type: BLOOD SPECIMEN Ordering Facility: [facility] Address: [address] [place] [address] Performed By: #### 2 4321-2 #### [facility] CLIA [id number] [address] [place] [address] [place] Color (U) Yellow Normal Yellow [facility] Comment on above: Order Comment: Speci men Type: BLOOD SPECIMEN Ordering Facility: [facility] Address: [address] [place] [address] Performed By: #### 2 4321-2 #### [facility] CLIA [id number] [address] [place] [address] [place] Epithelial cells LM.HPF (Urine sed) [#/Area] None Seen Normal [facility] Comment on above: Order Comment: Speci men Type: BLOOD SPECIMEN Ordering Facility: [facility] Address: [address] [place] [address] Performed By: #### 2 4321-2 #### [facility] CLIA [id number] [address] [place] [address] [place] Glucose Test strip (U) [Mass/Vol] Negative Normal Negative [facility] Comment on above: Order Comment: Speci men Type: BLOOD SPECIMEN Ordering Facility: [facility] Address: [address] [place] [address] Performed By: #### 2 4321-2 #### [facility] CLIA [id number] [address] [place] [address] [place] Hemoglobin Ql (U) Negative Normal Negative [facility] Comment on above: Order Comment: Speci men Type: BLOOD SPECIMEN Ordering Facility: [facility] Address: [address] [place] [address] Performed By: #### 2 4321-2 #### [facility] CLIA [id number] [address] [place] [address] [place] Hyaline casts (Urine sed) [#/Area] 0 /[LPF] Normal 0 /LPF [facility] Comment on above: Order Comment: Speci men Type: BLOOD SPECIMEN Ordering Facility: [facility] Address: [address] [place] [address] Performed By: #### 2 4321-2 #### [facility] CLIA [id number] [address] [place] [address] [place] Ketones Ql (U) Negative Normal Negative [facility] Comment on above: Order Comment: Speci men Type: BLOOD SPECIMEN Ordering Facility: [facility] Address: [address] [place] [address] Performed By: #### 2 4321-2 #### [facility] CLIA [id number] [address] [place] [address] [place] Leukocyte esterase Test strip Ql (U) Negative Normal Negative [facility] Comment on above: Order Comment: Speci men Type: BLOOD SPECIMEN Ordering Facility: [facility] Address: [address] [place] [address] Performed By: #### 2 4321-2 #### [facility] CLIA [id number] [address] [place] [address] [place] Nitrite Ql (U) Negative Normal Negative [facility] Comment on above: Order Comment: Speci men Type: BLOOD SPECIMEN Ordering Facility: [facility] Address: [address] [place] [address] Performed By: #### 2 4321-2 #### [facility] CLIA [id number] [address] [place] [address] [place] pH (U) 7.0 [pH] Normal <8.5 [facility] Comment on above: Order Comment: Speci men Type: BLOOD SPECIMEN Ordering Facility: [facility] Address: [address] [place] [address] Performed By: #### 2 4321-2 #### [facility] CLIA [id number] [address] [place] [address] [place] Protein (U) [Mass/Vol] Negative Normal Negative [facility] Comment on above: Order Comment: Speci men Type: BLOOD SPECIMEN Ordering Facility: [facility] Address: [address] [place] [address] Performed By: #### 2 4321-2 #### [facility] CLIA [id number] [address] [place] [address] [place] RBC LM.HPF (Urine sed) [#/Area] 0-2 /HPF Normal 0-2 /HPF [facility] Comment on above: Order Comment: Speci men Type: BLOOD SPECIMEN Ordering Facility: [facility] Address: [address] [place] [address] Performed By: #### 2 4321-2 #### [facility] CLIA [id number] [address] [place] [address] [place] Specific gravity (U) [Rel density] 1.007 Normal 1.005-1.030 [facility] Comment on above: Order Comment: Speci men Type: BLOOD SPECIMEN Ordering Facility: [facility] Address: [address] [place] [address] Performed By: #### 2 4321-2 #### [facility] CLIA [id number] [address] [place] [address] [place] Urobilinogen Ql (U) 0.2 EU/dL Normal 0.2-1.0 EU/dL [facility] Comment on above: Order Comment: Speci men Type: BLOOD SPECIMEN Ordering Facility: [facility] Address: [address] [place] [address] Performed By: #### 2 4321-2 #### [facility] CLIA [id number] [address] [place] [address] [place] WBC LM.HPF (Urine sed) [#/Area] 0-5 /HPF Normal 0-5 /HPF [facility] Comment on above: Order Comment: Speci men Type: BLOOD SPECIMEN Ordering Facility: [facility] Address: [address] [place] [address] Performed By: #### 2 4321-2 #### [facility] CLIA [id number] [address] [place] [address] [id number] [address] [place] XR LUMBAR 3V AP/LAT/L5-S1on [...] clips. IMPRESSION: Degenerative changes. Intact orthopedic hardware. [employer]iztalk Software Developer: PSCB Transcribe Date/Time: Sep 07 2023 9:29P Dictated by : BRANDON CARRILLO MD This examination was interpreted and the report reviewed and electronically signed by: BRANDON CARRILLO MD on Sep 07 2023 9:31PM EST [id number] N Normal [facility] CNPTrupti 09-04-2023 CNPN Telephone (NIQ) BRADEN RODRIGUEZ ([id number]) 1955 M Date Time Provider Department 09/04/23 KATHERINE KEITH During your visit today, we recorded the following information about you: Winnie Quesada 09/04/2023 12:57 PM Addendum Pt has an order that is from [facility]. For Home Health Care. Marianne from [facility] called and said pt was refusing Home [...] Encounter Status:Closed by TARA RODRIGUEZ on 09/05/23 [facility] 08-29-2023 [facility] Telephone (NIQ) BRADEN RODRIGUEZ ([id number]) 1955 M Date Time Provider Department 08/29/23 KATHERINE KEITH During your visit today, we recorded the following information about you: Winnie Quesada 08/29/2023 9:33 AM Signed Call received for Katherine Keith MD regarding Braden Rodriguez. Caller: [facility] Patient Identified by Name and : [...] appointment: 10/08/2023 Best number to reach caller: [phone] Best time to reach caller: any Is it OK to leave a detailed voice message? Yes Wellington Zendejas, RN 08/29/2023 10:32 AM Signed Returned call to pharmacy. Kori Loyd did speak to patient regarding stopping the Sheldon and taking Oxy. Also getting his pain [...] Status:Closed by WELLINGTON CASTANEDA on 08/29/23 Normal [facility] CNCOon 08-25-2023 CNCO Letter Text Normal [facility] Basic metabolic 2000 panelon 08-22-2023 Anion gap [Moles/Vol] 9 mmol/L Normal 8-15 [facility] Comment on above: Order Comment: Speci men Type: BLOOD SPECIMENOrdering Facility: [facility] Address: [address] [place] [address] Performed By: #### 2 4321-2 ####[facility] [id number] [place] [address] [place] Calcium [Mass/Vol] 9.4 mg/dL Normal 8.5-10.2 [facility] Comment on above: Order Comment: Speci men Type: BLOOD SPECIMENOrdering Facility: [facility] Address: [address] [place] [address] Performed By: #### 2 4321-2 ####[facility] [id number] [place] [address] [place] Chloride [Moles/Vol] 103 mmol/L Normal 98-107 [facility] Comment on above: Order Comment: Speci men Type: BLOOD SPECIMENOrdering Facility: [facility] Address: [address] [place] [address] Performed By: #### 2 4321-2 ####[facility] [id number] [place] [address] [place] CO2 [Moles/Vol] 26 mmol/L Normal 22-30 [facility] Comment on above: Order Comment: Speci men Type: BLOOD SPECIMENOrdering Facility: [facility] Address: [address] [place] [address] Performed By: #### 2 4321-2 ####[facility] [id number] [place] [address] [place] [facility] Creatinine [Mass/Vol] 0.77 mg/dL Normal 0.73-1.22 [facility] Comment on above: Order Comment: Speci men Type: BLOOD SPECIMENOrdering Facility: [facility] Address: [address] [place] [address] Performed By: #### 2 4321-2 ####[facility] [id number] [address] [place] Creatinine and Glomerular filtration rate.predicted panel (S/P/Bld) 99 mL/min/1.73m??? Normal >=60 [facility] Comment on above: Order Comment: Speci men Type: BLOOD SPECIMENOrdering Facility: [facility] Address: [address] [place] [address] Result Comment: Yesica mated Glomerular Filtration Rate [...] actual GFR. Performed By: #### 2 4321-2 ####[facility] [id number] [place] [address] [place] Glucose [Mass/Vol] 112 mg/dL High 74-99 [facility] Comment on above: Order Comment: Roberto Carlos lion Type: BLOOD SPECIMENOrdering Facility: [facility] Address: [address] [place] [address] Result Comment: The English Diabetes Association (ADA) provides guidance for cutoff [...] Standards of Medical Care in Diabetes 2016, English Diabetes Association. Diabetes Care. 2016.39(Suppl 1). Performed By: #### 2 4321-2 ####[facility] [id number] [place] [address] [place] Potassium [Moles/Vol] 5.1 mmol/L Normal 3.7-5.1 [facility] Comment on above: Order Comment: Roberto Carlos lion Type: BLOOD SPECIMENOrdering Facility: [facility] Address: [address] [place] [address] Performed By: #### 2 4321-2 ####[facility] [id number] [place] [address] [place] Sodium [Moles/Vol] 138 mmol/L Normal 136-144 [facility] Comment on above: Order Comment: Roberto Carlos lion Type: BLOOD SPECIMENOrdering Facility: [facility] Address: [address] [place] [address] Performed By: #### 2 4321-2 ####[facility] [id number] [place] [address] [place] Urea nitrogen [Mass/Vol] 16 mg/dL Normal 9-24 [facility] Comment on above: Order Comment: Speci men Type: BLOOD SPECIMENOrdering Facility: [facility] Address: [address] [place] [address] Performed By: #### 2 4321-2 ####[facility] [id number] [place] [address] [place] CBC panel Auto (Bld)on 08-21 Erythrocyte distribution width (RBC) [Ratio] 13.2 % Normal 11.5-15.0 [facility] Comment on above: Order Comment: Speci men Type: BLOOD SPECIMEN Ordering Facility: [facility] Address: [address] [place] [address] Performed By: #### 2 4321-2 #### [facility] CLIA [id number] [address] [place] [address] [place] Hematocrit (Bld) [Volume fraction] 34.6 % Low 39.0-51.0 [facility] Comment on above: Order Comment: Speci men Type: BLOOD SPECIMEN Ordering Facility: [facility] Address: [address] [place] [address] Performed By: #### 2 4321-2 #### [facility] CLIA [id number] [address] [place] [address] [place] Hemoglobin (Bld) [Mass/Vol] 11.6 g/dL Low 13.0-17.0 [facility] Comment on above: Order Comment: Speci men Type: BLOOD SPECIMEN Ordering Facility: [facility] Address: [address] [place] [address] Performed By: #### 2 4321-2 #### [facility] CLIA [id number] [address] [place] [address] [place] MCH (RBC) [Entitic mass] 31.9 pg Normal 26.0-34.0 [facility] Comment on above: Order Comment: Speci men Type: BLOOD SPECIMEN Ordering Facility: [facility] Address: [address] [place] [address] Performed By: #### 2 4321-2 #### [facility] CLIA [id number] [address] [place] [address] [place] MCHC (RBC) [Mass/Vol] 33.5 g/dL Normal 30.5-36.0 [facility] Comment on above: Order Comment: Speci men Type: BLOOD SPECIMEN Ordering Facility: [facility] Address: [address] [place] [address] Performed By: #### 2 4321-2 #### [facility] CLIA [id number] [address] [place] [address] [place] MCV (RBC) [Entitic vol] 95.1 fL Normal 80.0-100.0 [facility] Comment on above: Order Comment: Speci men Type: BLOOD SPECIMEN Ordering Facility: [facility] Address: [address] [place] [address] Performed By: #### 2 4321-2 #### [facility] CLIA [id number] [address] [place] [address] [place] Nucleated RBC (Bld) [#/Vol] 10*3/uL Normal <0.01 [facility] Comment on above: Order Comment: Speci men Type: BLOOD SPECIMEN Ordering Facility: [facility] Address: [address] [place] [address] Performed By: #### 2 4321-2 #### [facility] CLIA [id number] [address] [place] [address] [place] Platelet mean volume (Bld) [Entitic vol] 9.7 fL Normal 9.0-12.7 [facility] Comment on above: Order Comment: Speci men Type: BLOOD SPECIMEN Ordering Facility: [facility] Address: [address] [place] [address] Performed By: #### 2 4321-2 #### [facility] CLIA [id number] [address] [place] [address] [place] Platelets (Bld) [#/Vol] 393 10*3/uL Normal 150-400 [facility] Comment on above: Order Comment: Speci men Type: BLOOD SPECIMEN Ordering Facility: [facility] Address: [address] [place] [address] Performed By: #### 2 4321-2 #### [facility] CLIA [id number] [address] [place] [address] [place] RBC (Bld) [#/Vol] 3.64 10*6/uL Low 4.20-6.00 [facility] Comment on above: Order Comment: Speci men Type: BLOOD SPECIMEN Ordering Facility: [facility] Address: [address] [place] [address] Performed By: #### 2 4321-2 #### [facility] CLIA [id number] [address] [place] [address] [place] WBC (Bld) [#/Vol] 17.35 10*3/uL High 3.70-11.00 [facility] Comment on above: Order Comment: Speci men Type: BLOOD SPECIMEN Ordering Facility: [facility] Address: [address] [place] [address] Performed By: #### 2 4321-2 #### [facility] CLIA [id number] [address] [place] [address] [place] CNDSon 08-22-2023 CNDS HNO ID: [id number] Author: CHILANGO COTTO PA-C Service: Neurosurgery Author Type: Physician Emergency Technician Type: Discharge Summary Filed: 08/22/2023 10:39 Note Text: Attestation signed by Katherine Keith MD at 09/08/2023 11:23 AM Katherine Keith MD DISCHARGE SUMMARY NEUROLOGICAL [facility] PATIENT NAME: Braden Rodriguez ADMISSION DATE: 08/19/2023 DISCHARGE DATE: 08/22/2023 Attending Physician: Katherine Keith MD PCP: Ester Cain MD [phone] Code Status: Not on file Discharged Against [...] Implant Name Type Inv. Item Serial No. Fashion Stylist Lot No. LRB No. Used Action GRAFT INFUSE 20GA MEDIUM BOVINE COLLAGEN RHBMP-2 2X1IN BONE VIAL ABSORBABLE - [id number] Bone GRAFT INFUSE 20GA MEDIUM BOVINE COLLAGEN RHBMP-2 2X1IN BONE VIAL ABSORBABLE [employer] [id number] N/A 1 Implanted SIGNIFY GEL INSTAFILL CARTRIDGE 5CC [id number] Bone [employer] [id number] N/A 1 Implanted SIGNIFY GEL INSTAFILL CARTRIDGE 5CC [id number] Accessories [employer] [id number] N/A 1 Implanted CREO MIS LOCKING CAP Accessories [employer] N/A 8 Implanted CREO MIS 5.5MM CURVED CRYSTAL TI ALLOY 10CM Crystal [employer] N/A 1 Implanted SPACER RISE-L 3D LORDOTIC [id number] SPINAL NONSTERILE [employer] N/A 1 Implanted CREO MIS 5.5MM CURVED CRYSTAL TI ALLOY 11CM Crystal [employer] N/A 1 Implanted SPACER RISE-L 3D LORDOTIC [id number] SPINAL NONSTERILE [employer] N/A 2 Implanted [...] Assisting * Hui Whyte MD - Fellow Extractions Technician: Lindsay Lew RN Extractions Technician (Relief): Connie Mendosa RN; April Blackmon RN Scrub Person: Radha Chaudhary ST Scrub Person (Relief): Connie Mendosa RN; Jodi Moore ST Procedures During Hospitalization: No procedures performed Hospital Course: 68 y/o M with degenerative scoliosis who presents for elective spine surgery. The patient was electively admitted to the [facility]. After being optimized for surgery by [...] The patient was then transferred up to [place] [address] [address] hospital room for postoperative management. Patient was [...] Present Yes Current Assessment AND Plan Assessment: [facility] PLAN: -Resume coreg (more content not included)... Normal [facility] THERAPY NTon 08-22-2023 THERAPY NT HNO ID: [id number] Author: DONN ARDON, PT Service: Physical Therapy Author Type: Physical Therapist Type: Therapy (PT/OT/Speech/Resp) Filed: 08/22/2023 12:08 Note Text: PHYSICAL THERAPY MISSED VISIT SERVICE DATE: 08/22/2023 SERVICE TIME: 1000 ROOM: [place] [address] Patient not seen due to Refused Treatment. Discussed functional mobility with pt, answered all questions within scope. Pt reports no concerns regarding d/c to home, declined ambulation with PT at this time. SIGNATURE: Donn Ardon, PT PATIENT NAME: Braden Rodriguez DATE: August 22, 2023 TIME: 12:08 PM Normal [facility] Basic metabolic 2000 panelon 08-21-2023 Anion gap [Moles/Vol] 10 mmol/L Normal 8-15 [facility] Comment on above: Order Comment: Speci men Type: BLOOD SPECIMEN Ordering Facility: [facility] Address: [address] [place] [address] Performed By: #### 2 4321-2 #### [facility] CLIA [id number] [address] [place] [address] [place] [address] [place] Calcium [Mass/Vol] 9.5 mg/dL Normal 8.5-10.2 [facility] Comment on above: Order Comment: Speci men Type: BLOOD SPECIMEN Ordering Facility: [facility] Address: [address] [place] [address] Performed By: #### 2 4321-2 #### [facility] CLIA [id number] [address] [place] [address] [place] Chloride [Moles/Vol] 106 mmol/L Normal 98-107 [facility] Comment on above: Order Comment: Speci men Type: BLOOD SPECIMEN Ordering Facility: [facility] Address: [address] [place] [address] Performed By: #### 2 4321-2 #### [facility] CLIA [id number] [address] [place] [address] [place] CO2 [Moles/Vol] 22 mmol/L Normal 22-30 [facility] Comment on above: Order Comment: Speci men Type: BLOOD SPECIMEN Ordering Facility: [facility] Address: [address] [place] [address] Performed By: #### 2 4321-2 #### [facility] CLIA [id number] [address] [place] [address] [place] Creatinine [Mass/Vol] 0.84 mg/dL Normal 0.73-1.22 [facility] Comment on above: Order Comment: Speci men Type: BLOOD SPECIMEN Ordering Facility: [facility] Address: [address] [place] [address] Performed By: #### 2 4321-2 #### [facility] CLIA [id number] [address] [place] [address] [place] Creatinine and Glomerular filtration rate.predicted panel (S/P/Bld) 96 mL/min/1.73m??? Normal >=60 [facility] Comment on above: Order Comment: Speci men Type: BLOOD SPECIMEN Ordering Facility: [facility] Address: [address] [place] [address] Result Comment: Yesica mated Glomerular Filtration Rate [...] GFR. Performed By: #### 2 4321-2 #### [facility] CLIA [id number] [address] [place] [address] [place] Glucose [Mass/Vol] 140 mg/dL High 74-99 [facility] Comment on above: Order Comment: Roberto Carlos lion Type: BLOOD SPECIMEN Ordering Facility: [facility] Address: [address] [place] [address] Result Comment: The English Diabetes Association (ADA) provides guidance for cutoff [...] Standards of Medical Care in Diabetes 2016, English Diabetes Association. Diabetes Care. 2016.39(Suppl 1). Performed By: #### 2 4321-2 #### [facility] CLIA [id number] [address] [place] [address] [place] Potassium [Moles/Vol] 4.4 mmol/L Normal 3.7-5.1 [facility] Comment on above: Order Comment: Roberto Carlos lion Type: BLOOD SPECIMEN Ordering Facility: [facility] Address: [address] [place] [address] Performed By: #### 2 4321-2 #### [facility] CLIA [id number] [address] [place] [address] [place] Sodium [Moles/Vol] 138 mmol/L Normal 136-144 [facility] Comment on above: Order Comment: Speci men Type: BLOOD SPECIMEN Ordering Facility: [facility] Address: [address] [place] [address] Performed By: #### 2 4321-2 #### [facility] CLIA [id number] [address] [place] [address] [place] Urea nitrogen [Mass/Vol] 14 mg/dL Normal 9-24 [facility] Comment on above: Order Comment: Speci men Type: BLOOD SPECIMEN Ordering Facility: [facility] Address: [address] [place] [address] Performed By: #### 2 4321-2 #### [facility] CLIA [id number] [address] [place] [address] [place] CASE MANAGEMon 08-21-2023 CASE MANAGEM HNO ID: [id number] Author: ANGELITO ZENDEJAS RN Service: ? Author Type: Registered Nurse Type: Care Mgt Progress Note Filed: 08/21/2023 15:10 Note Text: CARE MANAGEMENT PROGRESS NOTE SERVICE DATE: 08/21/2023 SERVICE TIME: 2:52 PM LOS: 2 days Needs Prior to Discharge: To Be Determined Per team anticipated discharge tomorrow, prescription benefit specialist for HHC, no accepting HHC at this time, additional referral sent awaiting response. Team aware via Chatterous chat. Per spouse Marycarmen [phone] discharge transportation will be provided by a family member. CM to continue to follow. SIGNATURE: Angelito Zendejas RN PATIENT NAME: Braden Rodriguez DATE: August 21, 2023 TIME: 2:52 PM PAGER/CONTACT #: [phone] Normal [facility] CBC panel Auto (Bld)on 08-20 Erythrocyte distribution width (RBC) [Ratio] 13.1 % Normal 11.5-15.0 [facility] Comment on above: Order Comment: Speci men Type: BLOOD SPECIMEN Ordering Facility: [facility] Address: [address] [place] [address] Performed By: #### 2 4321-2 #### [facility] CLIA [id number] [address] [place] [address] [place] Hematocrit (Bld) [Volume fraction] 34.2 % Low 39.0-51.0 [facility] Comment on above: Order Comment: Speci men Type: BLOOD SPECIMEN Ordering Facility: [facility] Address: [address] [place] [address] Performed By: #### 2 4321-2 #### [facility] CLIA [id number] [address] [place] [address] [place] Hemoglobin (Bld) [Mass/Vol] 11.6 g/dL Low 13.0-17.0 [facility] Comment on above: Order Comment: Speci men Type: BLOOD SPECIMEN Ordering Facility: [facility] Address: [address] [place] [address] Performed By: #### 2 4321-2 #### [facility] CLIA [id number] [address] [place] [address] [place] MCH (RBC) [Entitic mass] 31.7 pg Normal 26.0-34.0 [facility] Comment on above: Order Comment: Speci men Type: BLOOD SPECIMEN Ordering Facility: [facility] Address: [address] [place] [address] Performed By: #### 2 4321-2 #### [facility] CLIA [id number] [address] [place] [address] [place] MCHC (RBC) [Mass/Vol] 33.9 g/dL Normal 30.5-36.0 [facility] Comment on above: Order Comment: Speci men Type: BLOOD SPECIMEN Ordering Facility: [facility] Address: [address] [place] [address] Performed By: #### 2 4321-2 #### [facility] CLIA [id number] [address] [place] [address] [place] MCV (RBC) [Entitic vol] 93.4 fL Normal 80.0-100.0 [facility] Comment on above: Order Comment: Speci men Type: BLOOD SPECIMEN Ordering Facility: [facility] Address: [address] [place] [address] Performed By: #### 2 4321-2 #### [facility] CLIA [id number] [address] [place] [address] [place] Nucleated RBC (Bld) [#/Vol] 10*3/uL Normal <0.01 [facility] Comment on above: Order Comment: Speci men Type: BLOOD SPECIMEN Ordering Facility: [facility] Address: [address] [place] [address] Performed By: #### 2 4321-2 #### [facility] CLIA [id number] [address] [place] [address] [place] Platelet mean volume (Bld) [Entitic vol] 9.3 fL Normal 9.0-12.7 [facility] Comment on above: Order Comment: Speci men Type: BLOOD SPECIMEN Ordering Facility: [facility] Address: [address] [place] [address] Performed By: #### 2 4321-2 #### [facility] CLIA [id number] [address] [place] [address] [place] Platelets (Bld) [#/Vol] 324 10*3/uL Normal 150-400 [facility] Comment on above: Order Comment: Speci men Type: BLOOD SPECIMEN Ordering Facility: [facility] Address: [address] [place] [address] Performed By: #### 2 4321-2 #### [facility] CLIA [id number] [address] [place] [address] [place] RBC (Bld) [#/Vol] 3.66 10*6/uL Low 4.20-6.00 [facility] Comment on above: Order Comment: Speci men Type: BLOOD SPECIMEN Ordering Facility: [facility] Address: [address] [place] [address] Performed By: #### 2 4321-2 #### [facility] CLIA [id number] [address] [place] [address] [place] WBC (Bld) [#/Vol] 13.46 10*3/uL High 3.70-11.00 [facility] Comment on above: Order Comment: Speci men Type: BLOOD SPECIMEN Ordering Facility: [facility] Address: [address] [place] [address] Performed By: #### 2 4321-2 #### [facility] CLIA [id number] [address] [place] [address] [place] THERAPY NTon 08-21-2023 THERAPY NT HNO ID: [id number] Author: DONN ARDON PT Service: Physical Therapy Author Type: Physical Therapist Type: Therapy (PT/OT/Speech/Resp) Filed: 08/21/2023 15:29 Note Text: Physical Therapy Treatment Summary SERVICE DATE: 08/21/2023 SERVICE TIME: 1429 to 1453 ROOM: [place] [address] PT 6 Clicks Score: 19 DISCHARGE RECOMMENDATIONS [...] gait and mobility-other TREATMENT INTERVENTIONS Therapeutic Activity (94469), Gait Training (78198) Timed Code Treatment (minutes): 24 Skilled Treatment [...] August 21, 2023 TIME: 3:29 PM Normal [facility] THERAPY NT HNO ID: [id number] Author: RUBÉN ORTEGA OT/L Service: Occupational Therapy Author Type: Occupational Therapist Type: Therapy (PT/OT/Speech/Resp) Filed: 08/21/2023 15:05 Note Text: OCCUPATIONAL THERAPY MISSED VISIT SERVICE DATE: 08/21/2023 SERVICE TIME: 1502 ROOM: [place] [address] Patient not seen due to (No OT needs). Per conversation with pt and family and staff, no OT needs SIGNATURE: RUBÉN ORTEGA OT/L PATIENT NAME: Braden Rodriguez DATE: August 21, 2023 TIME: 3:04 PM Normal [facility] NT HNO ID: [id number] Author: DONN ARDON, PT Service: Physical Therapy Author Type: Physical Therapist Type: Therapy (PT/OT/Speech/Resp) Filed: 08/21/2023 11:35 Note Text: PHYSICAL THERAPY MISSED VISIT SERVICE DATE: 08/21/2023 SERVICE TIME: 1127 ROOM: [place] [address] ([facility]-X[facility]RAY 215) Patient not seen due to Patient Not Available. Transport arrived for x-ray. PT will follow up as able. SIGNATURE: Donn Ardon PT PATIENT NAME: Braden Rodriguez DATE: August 21, 2023 TIME: 11:35 AM Normal [facility] XR LUMBAR 2V AP/LATon 2023 XR [...] recent postsurgical changes of the lumbar spine. Biztalk Software Developer: [email or web address] Transcribe Date/Time: Aug 21 2023 11:38A Dictated by : MANA TSAI MD This examination was interpreted and the report reviewed and electronically signed by: MANA TSAI MD on Aug 21 2023 11:39AM EST [id number] Normal [facility] Basic metabolic 2000 panelon 08-20-2023 Anion gap [Moles/Vol] 11 mmol/L Normal 8-15 [facility] Comment on above: Order Comment: Speci men Type: BLOOD SPECIMEN Ordering Facility: [facility] Address: [address] [place] [address] Performed By: #### 2 4321-2 #### [facility] CLIA [id number] [address] [place] [address] [place] Calcium [Mass/Vol] 9.3 mg/dL Normal 8.5-10.2 [facility] Comment on above: Order Comment: Speci men Type: BLOOD SPECIMEN Ordering Facility: [facility] Address: [address] [place] [address] Performed By: #### 2 4321-2 #### [facility] CLIA [id number] [address] [place] [address] [place] Chloride [Moles/Vol] 105 mmol/L Normal 98-107 [facility] Comment on above: Order Comment: Speci men Type: BLOOD SPECIMEN Ordering Facility: [facility] Address: [address] [place] [address] Performed By: #### 2 4321-2 #### [facility] CLIA [id number] [address] [place] [address] [place] CO2 [Moles/Vol] 24 mmol/L Normal 22-30 [facility] Comment on above: Order Comment: Speci men Type: BLOOD SPECIMEN Ordering Facility: [facility] Address: [address] [place] [address] Performed By: #### 2 4321-2 #### [facility] CLIA [id number] [address] [place] [address] [place] Creatinine [Mass/Vol] 0.86 mg/dL Normal 0.73-1.22 [facility] Comment on above: Order Comment: Roberto Carlos lion Type: BLOOD SPECIMEN Ordering Facility: [facility] Address: [address] [place] [address] Performed By: #### 2 4321-2 #### [facility] CLIA [id number] [address] [place] [address] OF [facility] Creatinine and Glomerular filtration rate.predicted panel (S/P/Bld) 95 mL/min/1.73m??? Normal >=60 [facility] Comment on above: Order Comment: Roberto Carlos lion Type: BLOOD SPECIMEN Ordering Facility: [facility] Address: [address] [place] [address] Result Comment: Yesica mated Glomerular Filtration Rate [...] GFR. Performed By: #### 2 4321-2 #### [facility] CLIA [id number] [address] [place] [address] [place] Glucose [Mass/Vol] 111 mg/dL High 74-99 [facility] Comment on above: Order Comment: Roberto Carlos lion Type: BLOOD SPECIMEN Ordering Facility: [facility] Address: [address] [place] [address] Result Comment: The English Diabetes Association (ADA) provides guidance for cutoff [...] Standards of Medical Care in Diabetes 2016, English Diabetes Association. Diabetes Care. 2016.39(Suppl 1). Performed By: #### 2 4321-2 #### [facility] CLIA [id number] [address] [place] [address] [place] Potassium [Moles/Vol] 4.0 mmol/L Normal 3.7-5.1 [facility] Comment on above: Order Comment: Speci men Type: BLOOD SPECIMEN Ordering Facility: [facility] Address: [address] [place] [address] Performed By: #### 2 4321-2 #### [facility] CLIA [id number] [address] [place] [address] [place] Sodium [Moles/Vol] 140 mmol/L Normal 136-144 [facility] Comment on above: Order Comment: Smitai men Type: BLOOD SPECIMEN Ordering Facility: [facility] Address: [address] [place] [address] Performed By: #### 2 4321-2 #### [facility] CLIA [id number] [address] [place] [address] [place] Urea nitrogen [Mass/Vol] 10 mg/dL Normal 9-24 [facility] Comment on above: Order Comment: Smitai men Type: BLOOD SPECIMEN Ordering Facility: [facility] Address: [address] [place] [address] Performed By: #### 2 4321-2 #### [facility] CLIA [id number] [address] [place] [address] [place] CBC panel Auto (Bld)on 08-19 Erythrocyte distribution width (RBC) [Ratio] 13.2 % Normal 11.5-15.0 [facility] Comment on above: Order Comment: Smitai men Type: BLOOD SPECIMEN Ordering Facility: [facility] Address: [address] [place] [address] Performed By: #### 2 4321-2 #### [facility] CLIA [id number] [address] [place] [address] [place] Hematocrit (Bld) [Volume fraction] 39.0 % Normal 39.0-51.0 [facility] Comment on above: Order Comment: Speci men Type: BLOOD SPECIMEN Ordering Facility: [facility] Address: [address] [place] [address] Performed By: #### 2 4321-2 #### [facility] CLIA [id number] [address] [place] [address] [place] Hemoglobin (Bld) [Mass/Vol] 12.9 g/dL Low 13.0-17.0 [facility] Comment on above: Order Comment: Speci men Type: BLOOD SPECIMEN Ordering Facility: [facility] Address: [address] [place] [address] Performed By: #### 2 4321-2 #### [facility] CLIA [id number] [address] [place] [address] [place] MCH (RBC) [Entitic mass] 32.4 pg Normal 26.0-34.0 [facility] Comment on above: Order Comment: Speci men Type: BLOOD SPECIMEN Ordering Facility: [facility] Address: [address] [place] [address] Performed By: #### 2 4321-2 #### [facility] CLIA [id number] [address] [place] [address] [place] MCHC (RBC) [Mass/Vol] 33.1 g/dL Normal 30.5-36.0 [facility] Comment on above: Order Comment: Speci men Type: BLOOD SPECIMEN Ordering Facility: [facility] Address: [address] [place] [address] Performed By: #### 2 4321-2 #### [facility] CLIA [id number] [address] [place] [address] [place] MCV (RBC) [Entitic vol] 98.0 fL Normal 80.0-100.0 [facility] Comment on above: Order Comment: Speci men Type: BLOOD SPECIMEN Ordering Facility: [facility] Address: [address] [place] [address] Performed By: #### 2 4321-2 #### [facility] CLIA [id number] [address] [place] [address] [place] Nucleated RBC (Bld) [#/Vol] 10*3/uL Normal <0.01 [facility] Comment on above: Order Comment: Speci men Type: BLOOD SPECIMEN Ordering Facility: [facility] Address: [address] [place] [address] Performed By: #### 2 4321-2 #### [facility] CLIA [id number] [address] [place] [address] [place] Platelet mean volume (Bld) [Entitic vol] 9.7 fL Normal 9.0-12.7 [facility] Comment on above: Order Comment: Speci men Type: BLOOD SPECIMEN Ordering Facility: [facility] Address: [address] [place] [address] Performed By: #### 2 4321-2 #### [facility] CLIA [id number] [address] [place] [address] [place] Platelets (Bld) [#/Vol] 389 10*3/uL Normal 150-400 [facility] Comment on above: Order Comment: Speci men Type: BLOOD SPECIMEN Ordering Facility: [facility] Address: [address] [place] [address] Performed By: #### 2 4321-2 #### [facility] CLIA [id number] [address] [place] [address] [place] RBC (Bld) [#/Vol] 3.98 10*6/uL Low 4.20-6.00 [facility] Comment on above: Order Comment: Speci men Type: BLOOD SPECIMEN Ordering Facility: [facility] Address: [address] [place] [address] Performed By: #### 2 4321-2 #### [facility] CLIA [id number] [address] [place] [address] [place] WBC (Bld) [#/Vol] 11.15 10*3/uL High 3.70-11.00 [facility] Comment on above: Order Comment: Speci men Type: BLOOD SPECIMEN Ordering Facility: [facility] Address: [address] [place] [address] Performed By: #### 2 4321-2 #### [facility] CLIA [id number] [address] [place] [address] [place] LUMBAR SPINE WO IVCONon 0 08-20-2023 CT LUMBAR SPINE WO IVCON * * *Final Report* * * DATE OF EXAM: Aug 20 2023 9:34AM [facility] 0508 - CT LUMBAR SPINE WO IVCON [...] caudal rib-bearing vertebral body is designated T12. Np (topogram) images: No additional findings. Alignment: Mild [...] crest and there are 5 lumbar-type vertebrae. Biztalk Software Developer: PSCB Transcribe Date/Time: Aug 20 2023 9:38A Dictated by : RICHARD WEI MD This examination was interpreted and the report reviewed and electronically signed by: JO ANN BARR MD on Aug 20 2023 10:22AM EST [id number] Normal [facility] MRI LUMBAR SPINE WO IVCONon 06-12-2024 MRI LUMBAR SPINE WO IVCON * * [...] and assume there are 5 lumbar-type vertebrae. [employer] Software Developer: [email or web address] Transcribe Date/Time: Aug 20 2023 10:48P Dictated by : EMMA JERNIGAN MD This examination was interpreted and the report reviewed and electronically signed by: EMMA JERNIGAN MD on Aug 20 2023 11:01PM EST [id number] Normal [facility] THERAPY NTon 08-20-2023 THERAPY NT HNO ID: [id number] Author: DONN ARDON, PT Service: Physical Therapy Author Type: Physical Therapist Type: Therapy (PT/OT/Speech/Resp) Filed: 08/20/2023 15:41 Note Text: Physical Therapy Treatment Summary SERVICE DATE: 08/20/2023 SERVICE TIME: 1455 to 1520 ROOM: [place] [address] PT 6 Clicks Score: 17 DISCHARGE RECOMMENDATIONS [...] gait and mobility-other TREATMENT INTERVENTIONS Gait Training (52357), Therapeutic Activity (39145) Timed Code Treatment (minutes): 25 Skilled Treatment [...] August 20, 2023 TIME: 3:29 PM Normal [facility] THERAPY NT HNO ID: [id number] Author: DONN ARDON PT Service: ? Author Type: Physical Therapist Type: Therapy (PT/OT/Speech/Resp) Filed: 08/20/2023 11:43 Note Text: Physical Therapy Evaluation Summary SERVICE DATE: 08/20/2023 SERVICE TIME: 1025 to 1110 ROOM: [place] [address] PT 6 Clicks Score: 17 DISCHARGE RECOMMENDATIONS [...] previous lumbar surgeries with the last in 2018 HOME LIVING Patient Lives With: Spouse Assistance [...] and mobility-other TREATMENT INTERVENTIONS Evaluation, Therapeutic Activity (11796), Gait Training (01221) Timed Code Treatment (minutes): 30 Skilled Treatment [...] August 20, 2023 TIME: 11:43 AM Normal [facility] ANES POSTPROC EVALon 024 ANES POSTPROC EVAL HNO ID: [id number] Author: OMARI PALACIOS MD Service: ? Author Type: Anesthesiologist Type: Anesthesia Postprocedure Evaluation Filed: 08/19/2023 20:50 Note Text: POST ANESTHESIA EVALUATION NOTE : 1955 Procedure Summary Date: 08/19/23 Room / Location: [address] [facility] Anesthesia Start: 1047 Anesthesia Stop: 1906 Procedures: LAT LUMBAR SPINE [...] August 19, 2023 TIME: 8:50 PM CSN: [id number] Normal [facility] ANES PRE-OPon 08-19-2023 ANES PRE-OP HNO ID: [id number] Author: AGATA MCLEOD MD Service: ? Author [...] POSTERIOR NONSEGMENTAL INSTRUMENTATION (Spine Lumbar) Location: MAIN IN14 / MAIN [facility]AV[facility] Surgeons: Katherine Keith MD [...] August 19, 2023 TIME: 9:47 AM CSN: [id number] Normal [facility] BRIEF OP NOTon 08-19-2023 BRIEF OP NOT HNO ID: [id number] Author: SCHUYLER GOFF MD Service: Neurosurgery Author Type: Resident Type: Brief Op Note Filed: 08/19/2023 18:40 Note Text: BRIEF OP NOTE LOG ID: [id number] Surgery/Procedure Date: 08/19/2023 Incision/Procedure Start Time: 12:23 PM Incision Close/Procedure End Time: Surgeon(s)/Procedural ist(s) and Emergency Technician(s): Surgeon(s) and Role: * Katherine Keith MD - Primary * Schuyler Goff MD - Resident - Assisting * Hui Whyte MD - Fellow Procedure(s): L2-L5 OLIF and percutaneous PSF Anesthesia: General Findings: lumbar radiculopathy Estimated Blood Loss: 50 mls Specimens: * No specimens in log * Implants: Implant Name Type Inv. Item Serial No. Fashion Stylist Lot No. [id number] No. Used Action GRAFT INFUSE 20GA MEDIUM BOVINE COLLAGEN RHBMP-2 2X1IN BONE VIAL ABSORBABLE - [id number] Bone GRAFT INFUSE 20GA MEDIUM BOVINE COLLAGEN RHBMP-2 2X1IN BONE VIAL ABSORBABLE [employer] [id number] N/A 1 Implanted SIGNIFY GEL INSTAFILL CARTRIDGE 5CC [id number] Bone GLOB[employer] MEDICAL [id number] N/A 1 Implanted SIGNIFY GEL INSTAFILL CARTRIDGE 5CC [id number] Accessories GLOB[employer] MEDICAL [id number] N/A 1 Implanted SEALER EVS AQUAMANTYS TRANSCOLLATION .156IN 15D .025IN SPACE FLAT 5.49IN - [id number] Sealant - Tissue SEALER EVS AQUAMANTYS TRANSCOLLATION .156IN 15D .025IN SPACE FLAT 5.49IN [employer]ED [employer] [id number] N/A 1 Non-Implant KNIFE BAYONET SURGICAL ANNULOTOMY SPINE Accessories [employer] N/A 1 Non-Implant CREO MIS LOCKING CAP Accessories [employer] N/A 8 Implanted CREO MIS 5.5MM CURVED CRYSTAL TI ALLOY 10CM Crystal [employer] N/A 1 Implanted SPACER RISE-L 3D LORDOTIC [id number] SPINAL NONSTERILE [employer] N/A 1 Implanted CREO MIS 5.5MM CURVED CRYSTAL TI ALLOY 11CM Crystal [employer] N/A 1 Implanted SPACER RISE-L 3D LORDOTIC [id number] SPINAL NONSTERILE [employer] N/A 2 Implanted [...] 19, 2023 TIME: 6:38 PM PAGER/CONTACT #: [phone] Normal [facility] NURSING PROGon 08-19-2023 NURSING PROG HNO ID: [id number] Author: SINCERE RODRIGUEZ RN Service: Nursing Author Type: Registered Nurse Type: Nursing Progress Note Filed: 08/19/2023 20:51 Note Text: Transfer Note: PATIENT NAME: Braden Rodriguez Patient Location: [place] [address] Room: [place] [address] Patient transferred into room/unit [place] [address] in stable condition. Actions taken: No futher actions taken at this time. Will continue to monitor and check with patient. Normal [facility] NURSING PROG HNO ID: [id number] Author: AKASH STARK RN Service: Nursing Author Type: Registered Nurse Type: Nursing Progress Note Filed: 08/19/2023 09:09 Note Text: 0909 Good morning this is M21-14 Michael Rodriguez reported to me in preop assessment that he fell in hallway and landed on left hip. States left foot drop weak and gave out. No LOC, No abrasion to left hip or leg. [place] [id number] Normal [facility] OPERATIVE NOon 08-19-2023 OPERATIVE NO HNO ID: [id number] Author: KATHERINE KEITH MD Service: Neurosurgery Author Type: Physician Type: Operative Report Filed: 08/20/2023 08:34 Note Text: OPERATIVE/PROCEDURE REPORT LOG ID: [id number] SURGERY/PROCEDURE DATE: 08/19/2023 INCISION/PROCEDURE START TIME: 12:23 PM INCISION CLOSE/PROCEDURE END TIME: 6:39 PM SURGEON(S)/PROCEDURAL IST(S) AND ACCELERATOR TECHNICIAN(S): Surgeon(s) and Role: * Katherine Keith MD - Primary * Schuyler Goff MD - Resident - Assisting * Hui Whyte MD - Fellow No Additional Staff Dr. Whyte assisted in the absence of a qualified resident. Dr. Goff is web design intern level and not qualified. SURGERY/PROCEDURE(S): L2-L3 [...] huddle was (more content not included)... Normal [facility] XR LUMBAR 2V AP/LATon 2023 XR [...] L2 down to L5. IMPRESSION: Intraoperative imaging. [employer]iz[employer] Software Developer: [facility] Transcribe Date/Time: Aug 19 2023 6:11P Dictated by : MANA TSAI MD This examination was interpreted and the report reviewed and electronically signed by: MANA TSAI MD on Aug 19 2023 6:12PM EST [id number] Normal [facility] XR LUMBAR 2V AP/LAT * [...] of pedicle screw fixation. IMPRESSION: Intraoperative imaging. [employer] Software Developer: [facility] Transcribe Date/Time: Aug 19 2023 5:57P Dictated by : MANA TSAI MD This examination was interpreted and the report reviewed and electronically signed by: MANA TSAI MD on Aug 19 2023 5:58PM EST [id number] Normal [facility] XR LUMBAR 2V AP/LAT * [...] surgical planning of discectomy. IMPRESSION: Intraoperative imaging. [employer] Software Developer: [employer] Transcribe Date/Time: Aug 19 2023 5:21P Dictated by : MANA TSAI MD This examination was interpreted and the report reviewed and electronically signed by: MANA TSAI MD on Aug 19 2023 5:22PM EST [id number] Normal [facility] CNPNon 08-11-2023 CNPN Telephone (SPNSMN) BRADEN RODRIGUEZ ([id number]) 1955 Date Time Provider Department 08/11/23 ANGELINA MAJOR SPNSMN During your visit today, we recorded [...] Status:Closed by ANGELINA MAJOR on 08/11/23 Normal [facility] Basic metabolic 2000 panelon 08-06-2023 Anion gap [Moles/Vol] 13 mmol/L 9 - 18 mmol/L [facility] Calcium [Mass/Vol] 9.2 mg/dL 8.5 - 10. 2 mg/dL [facility] Chloride [Moles/Vol] 100 mmol/L 97 - 10 5 mmol/L [facility] CO2 [Moles/Vol] 24 mmol/L 22 - 30 mmol/L [facility] Creatinine [Mass/Vol] 1.00 mg/dL 0.73 - 1.22 mg/dL [facility] GFR/1.73 sq M.predicted among non-blacks MDRD (S/P/Bld) [Vol rate/Area] 83 mL/min/{1.73_m2} - PINF [facility] Comment on above: Estimated Glomerular Filtration [...] 100 mg/dL High 74 - 99 mg/dL [facility] Comment on above: The English Diabete s Association (ADA) provides guidance for [...] Standards of Medical Care in Diabetes 2016, English Diabetes Association. Diabetes Care. 2016.39(Suppl 1). Interpretation and review of laboratory results Abnormal [facility] Potassium [Moles/Vol] 4.1 mmol/L 3.7 - 5.1 mmol/L [facility] Sodium [Moles/Vol] 137 mmol/L 136 - 144 mmol/L [facility] Urea nitrogen [Mass/Vol] 23 mg/dL 9 - 24 mg/dL [facility] Anion gap [Moles/Vol] 13 mmol/L Normal 9-18 [facility] Comment on above: Order Comment: Roberto Carlos lion Type: BLOOD SPECIMEN Ordering Facility: [facility] Address: [address] [place] [address] Performed By: #### 2 4321-2, 2276-4, 62767-7 #### [facility] CLIA [id number] [address] [place] [address] [place] Calcium [Mass/Vol] 9.2 mg/dL Normal 8.5-10.2 [facility] Comment on above: Order Comment: Roberto Carlos lion Type: BLOOD SPECIMEN Ordering Facility: [facility] Address: [address] [place], [place] [address] Performed By: #### 2 4321-2, 6-4, 97276-8 #### [facility] CLIA [id number] [address] [place] [address] [place] Chloride [Moles/Vol] 100 mmol/L Normal 97-105 [facility] Comment on above: Order Comment: Roberto Carlos lion Type: BLOOD SPECIMEN Ordering Facility: [facility] Address: [address] [place], [place] [address] Performed By: #### 2 4321-2, 2276-4, 44924-2 #### [facility] CLIA [id number] [address] [place] [address] [place] CO2 [Moles/Vol] 24 mmol/L Normal 22-30 [facility] Comment on above: Order Comment: Roberto Carlos lion Type: BLOOD SPECIMEN Ordering Facility: [facility] Address: [address] [place] [address] Performed By: #### 2 4321-2, 2276-4, 84052-0 #### [facility] CLIA [id number] [address] [place] [address] [place] Creatinine [Mass/Vol] 1.00 mg/dL Normal 0.73-1.22 [facility] Comment on above: Order Comment: Roberto Carlos men Type: BLOOD SPECIMEN Ordering Facility: [facility] Address: [address] [place] [address] Performed By: #### 2 4321-2, 2276-4, 91803-7 #### [facility] IA [id number] [address] [place], [place] [id number] [place] [address] [place] Creatinine and Glomerular filtration rate.predicted panel (S/P/Bld) 83 mL/min/1.73m??? Normal >=60 [facility] Comment on above: Order Comment: Roberto Carlos lion Type: BLOOD SPECIMEN Ordering Facility: [facility] Address: [address] [place] [address] Result Comment: Yesica mated Glomerular Filtration Rate [...] GFR. Performed By: #### 2 4321-2, 2276-4, 18844-3 #### [facility] CLIA [id number] [address] [place] [address] [place] Glucose [Mass/Vol] 100 mg/dL High 74-99 [facility] Comment on above: Order Comment: Roberto Carlos lion Type: BLOOD SPECIMEN Ordering Facility: [facility] Address: [address] [place] [id number] Result Comment: The English Diabetes Association (ADA) provides guidance for cutoff [...] Standards of Medical Care in Diabetes 2016, English Diabetes Association. Diabetes Care. 2016.39(Suppl 1). Performed By: #### 2 4321-2, 2276-4, 78651-6 #### [facility] CLIA [id number] [place] [address] [place] Potassium [Moles/Vol] 4.1 mmol/L Normal 3.7-5.1 [facility] Comment on above: Order Comment: Speci men Type: BLOOD SPECIMEN Ordering Facility: [facility] Address: [address] [place] [address] Performed By: #### 2 4321-2, 2276-4, 54640-1 #### [facility] CLIA [id number] [address] [place] [address] [place] Sodium [Moles/Vol] 137 mmol/L Normal 136-144 [facility] Comment on above: Order Comment: Speci men Type: BLOOD SPECIMEN Ordering Facility: [facility] Address: [address] [place] [id number] Performed By: #### 2 4321-2, 2276-4, 78895-1 #### [facility] CLIA [id number] [address] [place] [address] [place] Urea nitrogen [Mass/Vol] 23 mg/dL Normal 9-24 [facility] Comment on above: Order Comment: Speci men Type: BLOOD SPECIMEN Ordering Facility: [facility] Address: [address] [place] [address] Performed By: #### 2 4321-2, 2276-4, 18095-4 #### [facility] CLIA [id number] [address] [place] [address] [place] CBC W Auto Differential pane l (Bld)on 08-06-2023 Basophils (Bld) [#/Vol] 0.08 10*3/uL Normal <0.11 [facility] Comment on above: Order Comment: Speci men Type: BLOOD SPECIMEN Ordering Facility: [facility] Address: [address] [place] [address] Performed By: #### 5 7021-8 #### [facility] CLIA [id number] [address] [place] [address] [place] Basophils/100 WBC (Bld) 0.9 % Normal [facility] Comment on above: Order Comment: Speci men Type: BLOOD SPECIMEN Ordering Facility: [facility] Address: [address] [place] [address] Performed By: #### 5 7021-8 #### [facility] CLIA [id number] [address] [place] [id number] [place] Differential cell count method Nom (Bld) Auto Normal [facility] Comment on above: Order Comment: Speci men Type: BLOOD SPECIMEN Ordering Facility: [facility] Address: [address] [place] [address] Performed By: #### 5 7021-8 #### [facility] CLIA [id number] [address] [place] [address] [place] Eosinophils (Bld) [#/Vol] 0.43 10*3/uL Normal <0.46 [facility] Comment on above: Order Comment: Speci men Type: BLOOD SPECIMEN Ordering Facility: [facility] Address: [address] [place] [address] Performed By: #### 5 7021-8 #### [facility] CLIA [id number] [address] [place] [address] [place] Eosinophils/100 WBC (Bld) 4.6 % Normal [facility] Comment on above: Order Comment: Speci men Type: BLOOD SPECIMEN Ordering Facility: [facility] Address: [address] [place] [address] Performed By: #### 5 7021-8 #### [facility] CLIA [id number] [address] [place] [address] [place] Erythrocyte distribution width (RBC) [Ratio] 12.7 % Normal 11.5-15.0 [facility] Comment on above: Order Comment: Speci men Type: BLOOD SPECIMEN Ordering Facility: [facility] Address: [address] [place] [address] Performed By: #### 5 7021-8 #### [facility] IA [id number] [address] [place] [address] [place] Hematocrit (Bld) [Volume fraction] 46.3 % Normal 39.0-51.0 [facility] Comment on above: Order Comment: Speci men Type: BLOOD SPECIMEN Ordering Facility: [facility] Address: [address] [place] [address] Performed By: #### 5 7021-8 #### [facility] IA [id number] [address] [place] [address] [place] Hemoglobin (Bld) [Mass/Vol] 15.1 g/dL Normal 13.0-17.0 [facility] Comment on above: Order Comment: Speci men Type: BLOOD SPECIMEN Ordering Facility: [facility] Address: [address] [place] [address] Performed By: #### 5 7021-8 #### [facility] CLIA [id number] [address] [place] [address] [place] Immature granulocytes (Bld) [#/Vol] 0.21 10*3/uL High <0.10 [facility] Comment on above: Order Comment: Speci men Type: BLOOD SPECIMEN Ordering Facility: [facility] Address: [address] [place] [address] Performed By: #### 5 7021-8 #### [facility] CLIA [id number] [address] [place] [address] [place] Immature granulocytes/100 WBC (Bld) 2.3 % Normal [facility] Comment on above: Order Comment: Speci men Type: BLOOD SPECIMEN Ordering Facility: [facility] Address: [address] [place] [address] Performed By: #### 5 7021-8 #### [facility] CLIA [id number] [address] [place] [address] [place] Lymphocytes (Bld) [#/Vol] 1.59 10*3/uL Normal 1.00-4.00 [facility] Comment on above: Order Comment: Speci men Type: BLOOD SPECIMEN Ordering Facility: [facility] Address: [address] [place] [address] Performed By: #### 5 7021-8 #### [facility] IA [id number] [address] [place] [address] [place] Lymphocytes/100 WBC (Bld) 17.2 % Normal [facility] Comment on above: Order Comment: Speci men Type: BLOOD SPECIMEN Ordering Facility: [facility] Address: [address] [place] [address] Performed By: #### 5 7021-8 #### [facility] IA [id number] [address] [place] [address] [place] MCH (RBC) [Entitic mass] 31.9 pg Normal 26.0-34.0 [facility] Comment on above: Order Comment: Speci men Type: BLOOD SPECIMEN Ordering Facility: [facility] Address: [address] [place] [address] Performed By: #### 5 7021-8 #### [facility] IA [id number] [address] [place] [address] [place] MCHC (RBC) [Mass/Vol] 32.6 g/dL Normal 30.5-36.0 [facility] Comment on above: Order Comment: Speci men Type: BLOOD SPECIMEN Ordering Facility: [facility] Address: [address] [place] [address] Performed By: #### 5 7021-8 #### [facility] IA [id number] [address] [place] [address] [place] MCV (RBC) [Entitic vol] 97.9 fL Normal 80.0-100.0 [facility] Comment on above: Order Comment: Speci men Type: BLOOD SPECIMEN Ordering Facility: [facility] Address: [address] [place] [address] Performed By: #### 5 7021-8 #### [facility] IA [id number] [address] [place] [address] [place] Monocytes (Bld) [#/Vol] 1.13 10*3/uL High <0.87 [facility] Comment on above: Order Comment: Speci men Type: BLOOD SPECIMEN Ordering Facility: [facility] Address: [address] [place] [address] Performed By: #### 5 7021-8 #### [facility] IA [id number] [address] [place] [address] [place] Monocytes/100 WBC (Bld) 12.2 % Normal [facility] Comment on above: Order Comment: Speci men Type: BLOOD SPECIMEN Ordering Facility: [facility] Address: [address] [place] [address] Performed By: #### 5 7021-8 #### [facility] IA [id number] [address] [place] [address] [place] Neutrophils (Bld) [#/Vol] 5.82 10*3/uL Normal 1.45-7.50 [facility] Comment on above: Order Comment: Speci men Type: BLOOD SPECIMEN Ordering Facility: [facility] Address: [address] [place] [address] Performed By: #### 5 7021-8 #### [facility] IA [id number] [address] [place] [address] [place] Neutrophils/100 WBC (Bld) 62.8 % Normal [facility] Comment on above: Order Comment: Speci men Type: BLOOD SPECIMEN Ordering Facility: [facility] Address: [address] [place] [address] Performed By: #### 5 7021-8 #### [facility] IA [id number] [address] [place] [address] [place] Nucleated RBC (Bld) [#/Vol] 10*3/uL Normal <0.01 [facility] Comment on above: Order Comment: Speci men Type: BLOOD SPECIMEN Ordering Facility: [facility] Address: [address] [place] [address] Performed By: #### 5 7021-8 #### [facility] IA [id number] [address] [place] [address] [place] Nucleated RBC/100 WBC (Bld) [Ratio] 0.0 /100 WBC Normal [facility] Comment on above: Order Comment: Speci men Type: BLOOD SPECIMEN Ordering Facility: [facility] Address: [address] [place] [address] Performed By: #### 5 7021-8 #### [facility] IA [id number] [address] [place] [address] [place] Platelet mean volume (Bld) [Entitic vol] 9.6 fL Normal 9.0-12.7 [facility] Comment on above: Order Comment: Speci men Type: BLOOD SPECIMEN Ordering Facility: [facility] Address: [address] [place] [address] Performed By: #### 5 7021-8 #### [facility] IA [id number] [address] [place] [address] [place] Platelets (Bld) [#/Vol] 270 10*3/uL Normal 150-400 [facility] Comment on above: Order Comment: Speci men Type: BLOOD SPECIMEN Ordering Facility: [facility] Address: [address] [place] [address] Performed By: #### 5 7021-8 #### [facility] IA [id number] [address] [place] [address] [place] RBC (Bld) [#/Vol] 4.73 10*6/uL Normal 4.20-6.00 [facility] Comment on above: Order Comment: Speci men Type: BLOOD SPECIMEN Ordering Facility: [facility] Address: [address] [place] [address] Performed By: #### 5 7021-8 #### [facility] CLIA [id number] [address] [place] [address] [place] WBC (Bld) [#/Vol] 9.26 10*3/uL Normal 3.70-11.00 [facility] Comment on above: Order Comment: Speci men Type: BLOOD SPECIMEN Ordering Facility: [facility] Address: [address] [place] [address] Performed By: #### 5 7021-8 #### [facility] CLIA [id number] [address] [place] BLOOD TYPEon 024 ABO O Normal [facility] Comment on above: Order Comment: Speci men Type: BLOOD SPECIMEN Ordering Facility: [facility] Address: [address] [place] [address] Performed By: #### C ONABO #### [facility] IA [id number] [address] Rh Nom (Bld) Negative Normal [facility] Comment on above: Order Comment: Speci men Type: BLOOD SPECIMEN Ordering Facility: [facility] Address: [address] [place] [address] Performed By: #### C ONABO #### [facility] CLIA [id number] [address] Performed By: #### T SCR30 #### [facility] CLIA [id number] [address] [place] [id number] [facility] [place] ECG COMPLETEon 08-06-2023 ECG COMPLETE Ventricular Rate : 5 5 BPM Atrial Rate : 55 BPM P-R Interval : 132 ms QRS Duration : 96 ms Q-T Interval : 420 ms QTC Calculation(Bazett) : 401 ms Calculated P [place] : 57 degrees Calculated R [place] : 63 degrees Calculated T [place] : 73 degrees Sinus bradycardia Possible Left atrial enlargement Borderline ECG Confirmed by LEX ACUNA DO ([id number]) on 08/18/2023 10:08:16 AM NAME : BRADEN RODRIGUEZ PID : [id number] : 1955 Gender : Male Race : ORD : [id number] Procedure Date : Aug 06 2023 08:48:24 Edit Date : Aug 18 2023 10:08:19 Diagnosis: Sinus bradycardia Possible Left atrial enlargement Borderline ECG Confirmed by LEX ACUNA DO ([id number]) on 08/18/2023 10:08:16 AM Test Reason : HCS Location : 301 : PACC Overread By : LEX ACUNA DO Edited By : LEX ACUNA DO Referred By : KATHERINE KEITH Acquired by : Paramjit machuca [facility] Ferritin SerPl-mCncon 2023 Ferritin [Mass/Vol] 322.8 ng/mL Normal 30.3-565.7 [facility] Comment on above: Order Comment: Speci men Type: BLOOD SPECIMEN Ordering Facility: [facility] Address: [address] [place] [address] Performed By: #### 2 4321-2, 2276-4, 42963-8 #### [facility] CLIA [id number] OF [facility] HISTORY PHYSICALon HISTORY PHYSICAL HNO ID: [id number] Author: SANAM GILL PA-C Service: ? Author Type: Physician Emergency Technician Type: H&P Filed: 08/06/2023 12:03 Note Text: [...] over the last year. Relieving factors include Sheldon and steroids. Aggravating factors include repetitive movement. [...] vaccine, a (more content not included)... Normal [facility] Iron and Iron binding capaci ty panelon 08-06-2023 Iron [Mass/Vol] 99 ug/dL Normal 41-186 [facility] Comment on above: Order Comment: Speci men Type: BLOOD SPECIMEN Ordering Facility: [facility] Address: [address] [place], [place] [address] [address] Performed By: #### 2 4321-2, 2276-4, 74498-4 #### [facility] CLIA [id number] [place] [address] [place] Iron binding capacity [Mass/Vol] 252 ug/dL Normal 232-386 [facility] Comment on above: Order Comment: Speci men Type: BLOOD SPECIMEN Ordering Facility: [facility] Address: [address] [place] [address] Performed By: #### 2 4321-2, 2276-4, 59360-2 #### [facility] CLIA [id number] [address] [place] [address] [place] Iron/TIBC [Molar ratio] 39.3 % Normal 15.0-57.0 [facility] Comment on above: Order Comment: Speci men Type: BLOOD SPECIMEN Ordering Facility: [facility] Address: [address] [place] [address] Performed By: #### 2 4321-2, 2276-4, 48222-4 #### [facility] IA [id number] [address] [place] [address] [place] Laboratory - Blood bankon ABO group Nom (Bld) O [facility] No Panel Informationon 08-05 [facility] STAPHYLOCOCCUS AUREUS AND MR SA SCREEN, PCR, NASALon 08-06-2023 S. aureus and MRSA panel BARBARA+probe (Nose) Not detected Normal Not Detected [facility] Comment on above: Order Comment: Speci men Type: SWAB Ordering Facility: [facility] Address: [address] [place] [address] Performed By: #### S APCR #### [facility] CLIA [id number] [address] [place] [address] [place] [address] [place] TYPE AND SCREEN,30 DAYon Blood group antibody screen Ql Negative [facility] ABO O Normal [facility] Comment on above: Order Comment: Speci men Type: BLOOD SPECIMEN Ordering Facility: [facility] Address: [address] [place] [address] Performed By: #### T SCR30 #### [facility] CLIA [id number] [address] [place] [address] [place] HIstorical Ab Scr Status Negative Normal [facility] Comment on above: Order Comment: Speci men Type: BLOOD SPECIMEN Ordering Facility: [facility] Address: [address] [place] [address] Performed By: #### T SCR30 #### [facility] CLIA [id number] [address] [place] [address] [facility] CNPNon 08-01-2023 CNPN Telephone (SPNSMN) BRADEN RODRIGUEZ ([id number]) 1955 M Date Time Provider Department 08/01/23 KATHERINE KEITH [facility] During your visit today, we recorded the following information about you: Wellington Castaneda RN 08/01/2023 9:02 AM Signed Called patient to offer sooner surgery date Left message to return call to the office Speed Communication ClerkMelia Vieyra 08/01/2023 9:43 AM Signed Patient is returning nurse call pertaining to below message, sooner appt call back [phone] Wellington Castaneda RN 08/01/2023 10:53 AM Signed [...] Encounter Status:Closed by WELLINGTON CASTANEDA on 08/01/23 [facility] BRADEN RODRIGUEZ ([id number]) 1955 M Date Time Provider Department 07/14/23 KATHERINE KEITH [facility] During your visit today, we recorded the following information about you: Alyssa Lomax LPN 07/14/2023 12:15 PM Signed Received, Reviewed [facility] Attending Physician Statement [facility] forms and need signed by Dr. Keith Sent to Dr. Keith via [employer] for signature Leave dates: 09/02/23-11/07/23 No Post [...] by ALYSSA LOMAX on 07/14/23 [facility]11[facility]20[facility] BRADEN RODRIGUEZ ([id number]) 1955 M Date Time Provider Department 06/11/23 KATHERINE KEITH [facility] During your visit today, we recorded the following information about you: Tara Rodriguez 06/11/2023 5:31 PM Signed Received Attending Physician's Statement from [employer]. Sent via [employer] for processing. Alyssa Lomax LPN 06/12/2023 2:44 PM Signed I received [employer] forms for [employer]. I called patient to explain we don't [...] with disability until surgery. Patient states Jamey Clarke only needs office note. This office will [...] Encounter Status:Closed by WELLINGTON CASTANEDA on 06/12/23 [facility]29[facility] BRADEN RODRIGUEZ ([id number]) 1955 M Date Time Provider Department 05/29/23 [...] Urology/CT Lumbar N/A TREK/ N/A Wellington Castaneda, PATRICIA 05/29/2023 1:10 PM Signed Neuro SPINE CARE [...] Status:Closed by WELLINGTON CASTANEDA on 05/29/23 Normal [facility] CT LUMBAR SPINE WO IVCONon 0 05-04-2023 CT LUMBAR SPINE WO IVCON * * *Final Report* * * DATE OF EXAM: May 04 2023 8:14AM [facility] 0508 - CT LUMBAR SPINE WO [...] caudal rib-bearing vertebra is counted as T12. Np (topogram) images: No significant additional findings Alignment: [...] crest and there are 5 lumbar-type vertebrae. [employer] Software Developer: [facility] Transcribe Date/Time: May 04 2023 9:20A Dictated by : CLAIRE LAZAR MD This examination was interpreted and the report reviewed and electronically signed by: CLAIRE LAZAR MD on May 04 2023 9:32AM EST [id number] N Normal [facility] CT Lumbar spine WO contrasto n 05-04-2023 [facility] CNOVon 04-30-2023 CNOV Office Visit (SPNSMN ) MICHAELBRADEN ([id number]) 1955 M Date Time Provider Department 04/30/23 [...] Ester Cain MD REFERRING PROVIDER: Tello Gaspar [address] [facility] [address] Consult requested for an opinion regarding the [...] OF SYMPTOMS (more content not included)... Normal [facility] XR LUMBAR 4V AP/LAT/ FLEX/EX Ton [...] POSTSURGICAL AND DEGENERATIVE CHANGE DESCRIBED. NO INSTABILITY [employer] Software Developer: [facility] Transcribe Date/Time: Apr 30 2023 10:33A Dictated by : HANK LUCIO MD This examination was interpreted and the report reviewed and electronically signed by: HANK LUCIO MD on Apr 30 2023 10:37AM EST [id number] N Normal [facility] XR Lumbar spine Views W flex ion and W extensionon 04-30-2023 [facility] XR SCOLIOSIS 2V PA STAND/LAT on [...] no bony erosions. IMPRESSION: Moderate thoracolumbar scoliosis. [employer] Developer: [employer] Transcribe Date/Time: Apr 30 2023 2:05P Dictated by : CAMRYN MOSES MD This examination was interpreted and the report reviewed and electronically signed by: CAMRYN MOSES MD on Apr 30 2023 2:06PM EST [id number] N Normal [facility] XR Thoracic and lumbar spine Views for scoliosis W standingon 04-30-2023 [facility] Lab Reportson 03-07-2023 Lab Reports [id number] Normal [facility] Formson 12-06-2022 Forms [id number] .00CD:127 Normal [facility] Screenson 12-06-2022 Screens [id number] 1.00CD:127 Normal [facility] Screens [id number] .00CD:127 Normal [facility] Patient Educationon 12-06-19 23 Patient Education [...] Where to find more information ? The [employer]: www.cancer.org ? [employer] U[employer] Association: www.auanet.org Contact a health care [...] adds flu (more content not included)... Normal [facility] Urology Office/Clinic Noteon 12-05-2022 Urology Office/Clinic [...] upon bx. and 17% likelihood of detecting [place] scores >=7 cancer. MRI of prostate 10/28/22 [...] When Contact Information Kahlil JERNIGAN, Shae Powell, URLew, URO Additional Instructions: 6 mos with PSA [...] Gross hematur (more content not included)... Normal [facility] Comment on above: Result Comment: Elec tronically Signed By: Shae Guillory MD\.br\Date and Time Signed: 12/05/22 13:41 EDT\.br\Electronically Co-Signed By: Mary Marino\.br\Date and Time Co-Signed: 12/05/22 13:23 EDT Creatinine (Bld) [Mass/Vol]O rdered By: Shae Guillory on 10-28-2022 Creatinine [Mass/Vol] 1.0 mg/dL 0.6-1.3 [facility] Comment on above: ER/ESD physician is notified/shown all ISTAT results.Critical values may be confirmed by laboratory testing ifdeemed necessary by ER attending doctor. CT ABDOMEN W CONon CT ABDOMEN W CON EXAMINATION: CT ABDOMEN [...] by: WILTON NICHOLE Date: 2022-04-12 08:12 Normal [facility] CREATININEon 04-11-2022 Creatinine [Mass/Vol] 0.80 mg/dL Normal 0.70-1.30 [facility] Comment on above: Performed By: #### P SASC, VITAD #### [facility] [address] [address] [address] Max Peck EGFR-AF MALIAN >60 Normal >=60 [facility] Comment on above: Performed By: #### P SASC, VITAD #### [facility] [address] [address] [address] Max Peck EGFR-NON AF MALIAN >60 Normal >=60 [facility] Comment on above: Performed By: #### P SASC, VITAD #### [facility] [address] [address] [address] Max Peck XR ABD FLAT UP_PA Kuldip 03-16 XR [...] by: EDENILSON KNIGHT Date: 2022-03-16 10:42 Normal [facility] LIPID PROFILEon 03-06-2022 CHOL-HDL RATIO NORM SEE BELOW Normal [facility] Comment on above: Result Comment: 3.3 - 4.4 LOW RISK 4.4 - 7.1 AVERAGE RISK 7.1 - 11.0 MODERATE RISK >11.0 HIGH RISK Performed By: #### P SASC, VITAD #### [facility] [address] [address] [address] Max Peck Cholesterol [Mass/Vol] 163 mg/dL Normal <=200 [facility] Comment on above: Performed By: #### P SASC, VITAD #### [facility] [address] [place] [address] Dr. Max Peck Cholesterol in HDL [Mass/Vol] 50 mg/dL Normal 40-60 [facility] Comment on above: Performed By: #### P SASC, VITAD #### [facility] [address] [address] [address] Max Peck Cholesterol in LDL [Mass/Vol] 100.0 mg/dL Normal [facility] Comment on above: Performed By: #### P SASC, VITAD #### [facility] [address] [place] [address] Dr. Max Peck Cholesterol.total/Ch olesterol in HDL [Mass ratio] 3.3 {ratio} Normal [facility] Comment on above: Performed By: #### P SASC, VITAD #### [facility] [address] [place] [address] Dr. Max Peck HDL NORMAL > or = 60 mg/dl - LO W CARDIOVASCULAR RISK <40 mg/dl - HIGH CARDIOVASCULAR RISK Normal [facility] Comment on above: Performed By: #### P SASC, VITAD #### [facility] [address] [place] [address] Dr. Max Peck LDL CALC NORMAL SEE BELOW Normal [facility] Comment on above: Result Comment: <100 mg/dl OPTIMAL 100 - 129 mg/dl NEAR OR ABOVE OPTIMAL 130 - 159 mg/dl BORDERLINE HIGH 160 - 189 mg/dl HIGH >190 mg/dl VERY HIGH Performed By: #### P SASC, VITAD #### [facility] [address] [place] [address] Dr. Max Peck Triglyceride [Mass/Vol] 65 mg/dL Normal <=150 [facility] Comment on above: Performed By: #### P SASC, VITAD #### [facility] [address] [place] [address] Dr. Max Peck VLDL CALC 13.0 mg/dL Normal [facility] Comment on above: Performed By: #### P SASC, VITAD #### [facility] [address] [place] [address] Dr. Max Peck PROF 14(COMP METB)on 022 Albumin [Mass/Vol] 3.9 g/dL Normal 3.4-5.0 [facility] Comment on above: Performed By: #### P SASC, VITAD #### [facility] [address] [place] [address] Dr. Max Peck Albumin/Globulin [Mass ratio] 1.3 {ratio} Normal [facility] Comment on above: Performed By: #### P SASC, VITAD #### [facility] [address] [place] [address] Dr. Max Peck ALP [Catalytic activity/Vol] 79 U/L Normal 46-116 [facility] Comment on above: Performed By: #### P SASC, VITAD #### [facility] [address] [place] [address] Dr. Max Peck ALT [Catalytic activity/Vol] 24 U/L Normal 16-63 [facility] Comment on above: Performed By: #### P SASC, VITAD #### [facility] [address] [place] [address] Dr. Max Peck Anion gap [Moles/Vol] 12.3 mmol/L Normal [facility] Comment on above: Performed By: #### P SASC, VITAD #### [facility] [address] [place] [address] Dr. Max Peck AST [Catalytic activity/Vol] 25 U/L Normal 15-37 [facility] Comment on above: Performed By: #### P SASC, VITAD #### [facility] [address] [place] [address] Dr. Max Peck Bilirubin [Mass/Vol] 1.4 mg/dL Critically high 0.2-1.0 [facility] Comment on above: Performed By: #### P SASC, VITAD #### [facility] [address] [place] [address] Dr. Max Peck Calcium [Mass/Vol] 9.1 mg/dL Normal 8.5-10.1 [facility] Comment on above: Performed By: #### P SASC, VITAD #### [facility] [address] [place] [address] Dr. Max Peck Chloride [Moles/Vol] 100 mmol/L Normal 98-107 [facility] Comment on above: Performed By: #### P SASC, VITAD #### [facility] [address] [place] [address] Dr. Max Peck CO2 [Moles/Vol] 30.7 mmol/L Normal 21.0-32.0 [facility] Comment on above: Performed By: #### P SASC, VITAD #### [facility] [address] [place] [address] Dr. Max Peck Creatinine [Mass/Vol] 0.86 mg/dL Normal 0.70-1.30 [facility] Comment on above: Performed By: #### P SASC, VITAD #### [facility] [address] [place] [address] Dr. Max Peck EGFR-AF MALIAN 60 mL/min/1.73m2 Normal >=60 [facility] Comment on above: Performed By: #### P SASC, VITAD #### [facility] [address] [place] [address] Dr. Max Peck EGFR-NON AF MALIAN 60 mL/min/1.73m2 Normal >=60 [facility] Comment on above: Performed By: #### P SASC, VITAD #### [facility] [address] [place] [address] Dr. Max Peck Globulin (S) [Mass/Vol] 3.1 g/dL Normal [facility] Comment on above: Performed By: #### P SASC, VITAD #### [facility] [address] [place] [address] Dr. Max Peck Glucose [Mass/Vol] 102 mg/dL Normal 74-106 [facility] Comment on above: Performed By: #### P SASC, VITAD #### [facility] [address] [address] [address] Max Peck Potassium [Moles/Vol] 4.0 mmol/L Normal 3.5-5.1 [facility] Comment on above: Performed By: #### P SASC, VITAD #### [facility] [address] [place] [address] Dr. Max Peck Protein [Mass/Vol] 7.0 g/dL Normal 6.4-8.[address] [facility] Comment on above: Performed By: #### P SASC, VITAD #### [facility] [address] [place] [address] Dr. Max Peck Sodium [Moles/Vol] 139 mmol/L Normal 136-[address] [facility] Comment on above: Performed By: #### P SASC, VITAD #### [facility] [address] [place] [address] Dr. Max Peck Urea nitrogen [Mass/Vol] 10.0 mg/dL Normal 7.0-18.0 [facility] Comment on above: Performed By: #### P SASC, VITAD #### [facility] [address] [place] [address] Dr. Max Peck Urea nitrogen/Creatinine [Mass ratio] 11.6 mg/mg Normal [facility] Comment on above: Performed By: #### P SASC, VITAD #### [facility] [address] [place] [address] Dr. Max Peck XR CSPINE MIN 4 [...] WILTON NICHOLE Date: 2022-01-19 07:14 Normal [facility] HEPATITIS PANEL, ACUTEon HBsAg Screen Negative Normal Negative [facility] Comment on above: Performed By: #### P SASC, VITAD #### [facility] [address] [address] [address] Max Peck HCV AB <0.1 Normal 0.0-0.9 [facility] Comment on above: Performed By: #### P SASC, VITAD #### [facility] [address] [address] [address] Max Peck Hep A Ab, IgM Negative Normal Negative [facility] Comment on above: Performed By: #### P SASC, VITAD #### [facility] [address] [address] [address] Max Peck Hep B Core Ab, IgM Negative Normal Negative [facility] Comment on above: Performed By: #### P SASC, VITAD #### [facility] [address] [address] [address] Max Peck Interpretation: Comment Normal [facility] Comment on above: Result Comment: Nega tive Not infected with HCV, unless recent infection is suspected or other evidence exists to indicate HCV infection. Performed By: #### P SASC, VITAD #### [facility] [address] [address] [address] Max Peck INSULINon 12-29-2021 Insulin 15.1 uIU/mL Normal 2.6-24.9 [facility] Comment on above: Performed By: #### P SASC, VITAD #### [facility] [address] [address] [address] Max Peck TESTOSTERONE, TOTALon 2021 Testosterone [Mass/Vol] 766 ng/dL Normal 264-916 [facility] Comment on above: Result Comment: Adul t male reference interval is based on a population of healthy nonobese males (BMI <30) between 19 and 39 years old. Teddy et.al. JCEM 2017,102;3248-0449. PMID: [id number]. Performed By: #### P SASC, VITAD #### [facility] [address] [place] [address] Dr. Max Peck CBC AUTO DIFFon 12-28-2021 BASO # 0.0 103/ul Normal 0.0-0.1 [facility] Comment on above: Performed By: #### P SASC, VITAD #### [facility] [address] [place] [address] Dr. Max Peck Basophils/100 WBC (Bld) 0.4 % Normal 0.2-2.0 [facility] Comment on above: Performed By: #### P SASC, VITAD #### [facility] [address] [place] [address] Dr. Max Peck EO # 0.0 103/ul Normal 0.0-0.7 [facility] Comment on above: Performed By: #### P SASC, VITAD #### [facility] [address] [place] [address] Dr. Max Peck Eosinophils/100 WBC (Bld) 0.3 % Critically low 0.9-7.0 [facility] Comment on above: Performed By: #### P SASC, VITAD #### [facility] [address] [place] [address] Dr. Max Pekc Erythrocyte distribution width (RBC) [Ratio] 12.5 % Normal 11.0-15.0 [facility] Comment on above: Performed By: #### P SASC, VITAD #### [facility] [address] [place] [address] Dr. Max Peck Hematocrit (Bld) [Volume fraction] 41.5 % Critically low 42.0-54.0 [facility] Comment on above: Performed By: #### P SASC, VITAD #### [facility] [address] [place] [address] Dr. Max Peck Hemoglobin (Bld) [Mass/Vol] 14.0 g/dL Normal 14.0-18.0 [facility] Comment on above: Performed By: #### P SASC, VITAD #### [facility] [address] [address] [address] Max Peck IG # 0.09 10e3/ul Critically high 0.00-0.03 [facility] Comment on above: Performed By: #### P SASC, VITAD #### [facility] [address] [address] [address] Max Peck IG % 0.9 % Critically high 0.0-0.5 [facility] Comment on above: Performed By: #### P SASC, VITAD #### [facility] [address] [address] [address] Max Peck LYMPH # 2.6 103/ul Normal 1.2-3.8 [facility] Comment on above: Performed By: #### P SASC, VITAD #### [facility] [address] [place] [address] Dr. Max Peck Lymphocytes/100 WBC (Bld) 25.0 % Normal 20.5-60.0 [facility] Comment on above: Performed By: #### P SASC, VITAD #### [facility] [address] [address] [address] Max Peck MANUAL DIFF REQ NO Normal [facility] Comment on above: Performed By: #### P SASC, VITAD #### [facility] [address] [address] [address] Max Peck MCH (RBC) [Entitic mass] 32.6 pg Normal 25.9-34.0 [facility] Comment on above: Performed By: #### P SASC, VITAD #### [facility] [address] [address] [address] Max Peck MCHC (RBC) [Mass/Vol] 33.7 g/dL Normal 29.9-35.2 [facility] Comment on above: Performed By: #### P SASC, VITAD #### [facility] [address] [address] [address] Max Peck MCV (RBC) [Entitic vol] 96.7 fL Critically high 80.0-94.0 [facility] Comment on above: Performed By: #### P SASC, VITAD #### [facility] [address] [place] [address] Dr. Max Peck MONO # 1.2 103/ul Critically high 0.3-0.8 [facility] Comment on above: Performed By: #### P SASC, VITAD #### [facility] [address] [place] [address] Dr. Max Peck Monocytes/100 WBC (Bld) 11.1 % Normal 1.7-12.0 [facility] Comment on above: Performed By: #### P SASC, VITAD #### [facility] [address] [place] [address] Dr. Max Peck NEUT # 6.4 103/ul Normal 1.4-6.5 [facility] Comment on above: Performed By: #### P SASC, VITAD #### [facility] [address] [place] [address] Dr. Max Peck Neutrophils/100 WBC (Bld) 62.3 % Normal 43.0-75.0 [facility] Comment on above: Performed By: #### P SASC, VITAD #### [facility] [address] [place] [address] Dr. Max Peck Platelet mean volume (Bld) [Entitic vol] 9.6 fL Normal 9.5-13.5 [facility] Comment on above: Performed By: #### P SASC, VITAD #### [facility] [address] [place] [address] Dr. Max Peck PLT 323 103/ul Normal 150-450 [facility] Comment on above: Performed By: #### P SASC, VITAD #### [facility] [address] [place] [address] Dr. Max Peck RBC 4.29 106/ul Critically low 4.70-6.10 [facility] Comment on above: Performed By: #### P SASC, VITAD #### [facility] [address] [place] [address] Dr. Max Peck WBC 10.3 103/ul Normal 4.0-11.0 [facility] Comment on above: Performed By: #### P SASC, VITAD #### [facility] [address] [place] [address] Dr. Max Peck FREE THYROXINE INDEX T7on FTI 2.41 Normal 1.30-4.50 [facility] Comment on above: Performed By: #### T SH, URIC, T7, LIPID, CMP #### [facility] [address] [place] [address] Dr. Max Peck T3U 36.0 % Normal 33.0-40.0 [facility] Comment on above: Performed By: #### T SH, URIC, T7, LIPID, CMP #### [facility] [address] [place] [address] Dr. Max Peck T4 [Mass/Vol] 6.70 ug/dL Normal 4.50-12.10 [facility] Comment on above: Performed By: #### T SH, URIC, T7, LIPID, CMP #### [facility] [address] [place] [address] Dr. Max Peck GLYCOHEMOGLOBIN A1Con 2021 ADA RECOMMENDATION SEE BELOW Normal [facility] Comment on above: Result Comment: ADA RECOMMENDED LIMIT 4.0 - 6.0 ADA THERAPEUTIC TARGET < 7.0 ACTION SUGGESTED > 7.0 Performed By: #### P SASC, VITAD #### [facility] [address] [place] [address] Dr. Max Peck Glucose [Mass/Vol] 97 mg/dL Normal [facility] Comment on above: Performed By: #### P SASC, VITAD #### [facility] [address] [place] [address] Dr. Max Peck HbA1c (Bld) [Mass fraction] 5.0 % Normal 4.5-6.2 [facility] Comment on above: Performed By: #### P SASC, VITAD #### [facility] [address] [place] [address] Dr. Max Peck LIPID PROFILEon 12-28-2021 CHOL-HDL RATIO NORM SEE BELOW Normal [facility] Comment on above: Result Comment: 3.3 - 4.4 LOW RISK 4.4 - 7.1 AVERAGE RISK 7.1 - 11.0 MODERATE RISK >11.0 HIGH RISK Performed By: #### T SH, URIC, T7, LIPID, CMP #### [facility] [address] [address] [address] Max Peck Cholesterol [Mass/Vol] 221 mg/dL Critically high <=200 [facility] Comment on above: Performed By: #### T SH, URIC, T7, LIPID, CMP #### [facility] [address] [address] [address] Max Peck Cholesterol in HDL [Mass/Vol] 41 mg/dL Normal 40-60 [facility] Comment on above: Performed By: #### T SH, URIC, T7, LIPID, CMP #### [facility] [address] [address] [address] Max Peck Cholesterol in LDL [Mass/Vol] 157.2 mg/dL Normal [facility] Comment on above: Performed By: #### T SH, URIC, T7, LIPID, CMP #### [facility] [address] [address] [address] Max Peck Cholesterol.total/Ch olesterol in HDL [Mass ratio] 5.4 {ratio} Normal [facility] Comment on above: Performed By: #### T SH, URIC, T7, LIPID, CMP #### [facility] [address] [address] [address] Max Peck HDL NORMAL > or = 60 mg/dl - LO W CARDIOVASCULAR RISK <40 mg/dl - HIGH CARDIOVASCULAR RISK Normal [facility] Comment on above: Performed By: #### T SH, URIC, T7, LIPID, CMP #### [facility] [address] [place] [address] Dr. Max Peck LDL CALC NORMAL SEE BELOW Normal [facility] Comment on above: Result Comment: <100 mg/dl OPTIMAL 100 - 129 mg/dl NEAR OR ABOVE OPTIMAL 130 - 159 mg/dl BORDERLINE HIGH 160 - 189 mg/dl HIGH >190 mg/dl VERY HIGH Performed By: #### T SH, URIC, T7, LIPID, CMP #### [facility] [address] [address] [address] Max Peck Triglyceride [Mass/Vol] 114 mg/dL Normal <=150 [facility] Comment on above: Performed By: #### T SH, URIC, T7, LIPID, CMP #### [facility] [address] [address] [address] Max Peck VLDL CALC 22.8 mg/dL Normal [facility] Comment on above: Performed By: #### T SH, URIC, T7, LIPID, CMP #### [facility] [address] [address] [address] Max Peck PROF 14(COMP METB)on 022 Albumin [Mass/Vol] 3.9 g/dL Normal 3.4-5.0 [facility] Comment on above: Performed By: #### T SH, URIC, T7, LIPID, CMP #### [facility] [address] [place] [address] Dr. Max Peck Albumin/Globulin [Mass ratio] 1.3 {ratio} Normal [facility] Comment on above: Performed By: #### T SH, URIC, T7, LIPID, CMP #### [facility] [address] [place] [address] Dr. Max Peck ALP [Catalytic activity/Vol] 63 U/L Normal 46-116 [facility] Comment on above: Performed By: #### T SH, URIC, T7, LIPID, CMP #### [facility] [address] [place] [address] Dr. Max Peck ALT [Catalytic activity/Vol] 75 U/L Critically high 16-63 [facility] Comment on above: Performed By: #### T SH, URIC, T7, LIPID, CMP #### [facility] [address] [place] [address] Dr. Max Peck Anion gap [Moles/Vol] 8.8 mmol/L Normal [facility] Comment on above: Performed By: #### T SH, URIC, T7, LIPID, CMP #### [facility] [address] [place] [address] Dr. Max Peck AST [Catalytic activity/Vol] 41 U/L Critically high 15-37 [facility] Comment on above: Performed By: #### T SH, URIC, T7, LIPID, CMP #### [facility] [address] [place] [address] Dr. Max Peck Bilirubin [Mass/Vol] 0.8 mg/dL Normal 0.2-1.0 [facility] Comment on above: Performed By: #### T SH, URIC, T7, LIPID, CMP #### [facility] [address] [place] [address] Dr. Max Peck Calcium [Mass/Vol] 9.1 mg/dL Normal 8.5-10.1 [facility] Comment on above: Performed By: #### T SH, URIC, T7, LIPID, CMP #### [facility] [address] [place] [address] Dr. Max Peck Chloride [Moles/Vol] 102 mmol/L Normal 98-107 [facility] Comment on above: Performed By: #### T SH, URIC, T7, LIPID, CMP #### [facility] [address] [place] [address] Dr. Max Peck CO2 [Moles/Vol] 33.8 mmol/L Critically high 21.0-32.0 [facility] Comment on above: Performed By: #### T SH, URIC, T7, LIPID, CMP #### [facility] [address] [place] [address] Dr. Max Peck Creatinine [Mass/Vol] 0.80 mg/dL Normal 0.70-1.30 [facility] Comment on above: Performed By: #### T SH, URIC, T7, LIPID, CMP #### [facility] [address] [place] [address] Dr. Max Peck EGFR-AF MALIAN >60 Normal >=60 [facility] Comment on above: Performed By: #### T SH, URIC, T7, LIPID, CMP #### [facility] [address] [place] [address] Dr. Max Peck EGFR-NON AF MALIAN >60 Normal >=60 [facility] Comment on above: Performed By: #### T SH, URIC, T7, LIPID, CMP #### [facility] [address] [address] [address] Max Peck Globulin (S) [Mass/Vol] 2.9 g/dL Normal [facility] Comment on above: Performed By: #### T SH, URIC, T7, LIPID, CMP #### [facility] [address] [address] [address] Max Peck Glucose [Mass/Vol] 99 mg/dL Normal 74-[address] [facility] Comment on above: Performed By: #### T SH, URIC, T7, LIPID, CMP #### [facility] [address] [place] [address] Dr. Max Peck Potassium [Moles/Vol] 3.6 mmol/L Normal 3.5-5.1 [facility] Comment on above: Performed By: #### T SH, URIC, T7, LIPID, CMP #### [facility] [address] [place] [address] Dr. Max Peck Protein [Mass/Vol] 6.8 g/dL Normal 6.4-8.[address] [facility] Comment on above: Performed By: #### T SH, URIC, T7, LIPID, CMP #### [facility] [address] [place] [address] Dr. Max Peck Sodium [Moles/Vol] 141 mmol/L Normal 136-[address] [facility] Comment on above: Performed By: #### T SH, URIC, T7, LIPID, CMP #### [facility] [address] [place] [address] Dr. Max Peck Urea nitrogen [Mass/Vol] 16.0 mg/dL Normal 7.0-18.0 [facility] Comment on above: Performed By: #### T SH, URIC, T7, LIPID, CMP #### [facility] [address] [place] [address] Dr. Max Peck Urea nitrogen/Creatinine [Mass ratio] 20.0 mg/mg Normal [facility] Comment on above: Performed By: #### T SH, URIC, T7, LIPID, CMP #### [facility] [address] [address] [address] Max Peck TSHon 12-28-2021 TSH 1.544 uIU/mL Normal 0.358-3.740 [facility] Comment on above: Performed By: #### T SH, URIC, T7, LIPID, CMP #### [facility] [address] [address] [address] Max Peck URIC ACID SERUMon 12-28-2021 Urate [Mass/Vol] 5.4 mg/dL Normal 3.5-7.2 [facility] Comment on above: Performed By: #### T SH, URIC, T7, LIPID, CMP #### [facility] [address] [address] [address] Max Peck VITAMIN D 25 OHon 12-28-2021 VIT D 25-OH 51.2 ng/mL Normal [facility] Comment on above: Performed By: #### P SASC, VITAD #### [facility] [address] [place] [address] Dr. Max Peck VIT D RANGES SEE BELOW Normal [facility] Comment on above: Result Comment: <20 ng/mL Vit D deficient 20 - <30 ng/mL Vit D insufficient 30 - 100 ng/mL Vit D sufficient >100 ng/mL Potential Toxicity Performed By: #### P SASC, VITAD #### [facility] [address] [place] [address] Dr. Max Peck Cardiovascular Lab Reporton 09-01-2020 Cardiovascular Lab Report [facility] Patient Name: Braden Rodriguez [facility] MR #: [id number] Physician: Domenic Kohler MD Department of Service Date: 07/31/2020 Medicine Birthdate: 1955 Division of Room #: CC Cardiology [facility] [address] [address] Cardiovascular Laboratory Report The patient is a [...] Kohler MD Date Trans: 09/01/2020 10:51 A/sergio [id number] cc: Ester Cain M.D. [address] [id number] Normal [facility] LUMBAR SPINE 2 OR 3 VIEWSon 05-19-2019 LUMBAR SPINE 2 OR 3 VIEWS STUDY: LUMBAR SPINE 2 OR 3 VIEWS; 05/19/2019 9:49 am INDICATION: PAIN. COMPARISON: None. ACCESSION NUMBER(S): [id number] ORDERING CLINICIAN: Edgar Fairchild FINDINGS: No fracture or subluxation of the lumbar spine. L3-L5 laminectomy defects. Moderate to severe multilevel degenerative disc height loss with endplate sclerosis and osteophyte formation. Multilevel facet arthropathy. Moderate dextroscoliosis centered at L2. IMPRESSION: Severe degenerative changes of the lumbar spine. L3-L5 laminectomy defects. Normal [facility] Vital Signs Date Time Vital Sign Value Performing Clinician Facility 11-12-2023 14:[id number] Body height 182.9 cm Katherine Keith MD Work Phone: [facility] 11-12-2023 14:16-040 Body mass index (BMI) [Ratio] 27.84 kg/m2 Katherine Keith MD Work Phone: [facility] 11-12-2023 14:16-0400 Body weight 93.1 kg Katherine Keith MD Work Phone: [facility] 11-12-2023 14:16-0400 Diastolic blood pressure 77 mm[Hg] Katherine Keith MD Work Phone: [facility] 11-12-2023 14:16-0400 Heart rate 71 /min Katherine Keith MD Work Phone: [facility] 11-12-2023 14:16-0400 Respiratory rate 18 /min Katherine Keith MD Work Phone: [facility] 11-12-2023 14:16-0400 SaO2% (BldA) [Mass fraction] 100 % Katherine Keith MD Work Phone: [facility] Comment on above: room air 11-12-2023 14:16-0400 Systolic blood pressure 146 mm[Hg] Katherine Keith MD Work Phone: [facility] 11-11-2023 13:43-0400 Blood Pressure Location Camryn MOORELew [facility] 11-11-2023 13:43-0400 Diastolic blood pressure 96 mm[Hg] Camryn TERESAL [facility] 11-11-2023 13:43-0400 Heart rate 72 /min Camryn VAMSI [facility] 11-11-2023 13:43-0400 Respiratory rate 16 /min Camryn NILLew [facility] 11-11-2023 13:43-0400 Systolic blood pressure 136 mm[Hg] Camryn MOOREL [facility] 08-06-2023 09:43-0400 Body height 182.9 cm Pac 1 Other Phone: [facility] 08-06-2023 09:43-0400 Body mass index (BMI) [Ratio] 26.43 kg/m2 Pacc 1 Other Phone: [facility] 08-06-2023 09:43-0400 Body temperature 98.1 [degF] Pacc 1 Other Phone: [facility] 08-06-2023 09:43-0400 Body weight 88.4 kg Pacc 1 Other Phone: [facility] 08-06-2023 09:43-0400 Diastolic blood pressure 69 mm[Hg] Pacc 1 Other Phone: [facility] 08-06-2023 09:43-0400 Heart rate 56 /min Pacc 1 Other Phone: [facility] 08-06-2023 09:43-0400 Respiratory rate 18 /min Pacc 1 Other Phone: [facility] 08-06-2023 09:43-0400 SaO2% (BldA) [Mass fraction] 100 % Pacc 1 Other Phone: [facility] 08-06-2023 09:43-0400 Systolic blood pressure 154 mm[Hg] Pacc 1 Other Phone: [facility] 04-30-2023 11:31-0500 Body height 182.9 cm Katherine Keith MD Work Phone: [facility] 04-30-2023 11:31-0500 Body weight 91.5 kg Katherine Keith MD Work Phone: [facility] 04-30-2023 11:31-0500 Diastolic blood pressure 69 mm[Hg] Katherine Keith MD Work Phone: [facility] 04-30-2023 11:31-0500 Heart rate 78 /min Katherine Keith MD Work Phone: [facility] 04-30-2023 11:31-0500 SaO2% (BldA) [Mass fraction] 96 % Katherine Keith MD Work Phone: [facility] 04-30-2023 11:31-0500 Systolic blood pressure 137 mm[Hg] Katherine Keith MD Work Phone: [facility] 10-30-2022 10:15-0400 Blood Pressure Location Shae Lue [facility] 10-30-2022 10:15-0400 Diastolic blood pressure 92 mm[Hg] Shae Lue [facility] 10-30-2022 10:15-0400 Heart rate 73 /min Shae Lue [facility] 10-30-2022 10:15-0400 Systolic blood pressure 145 mm[Hg] Shae Lue [facility] 10-28-2022 06:50-0400 Body height 182.88 cm MD Ester Cain Work Phone: [facility] 10-28-2022 06:50-0400 Body weight 83.91 kg MD Ester Cain Work Phone: [facility] 09-04-2022 07:45-0400 Blood Pressure Location Shae Lue [facility] 09-04-2022 07:45-0400 Diastolic blood pressure 98 mm[Hg] Shae Lue [facility] 09-04-2022 07:45-0400 Heart rate 51 /min Shae Lue [facility] 09-04-2022 07:45-0400 Respiratory rate 16 /min Shae Lue [facility] 09-04-2022 07:45-0400 Systolic blood pressure 175 mm[Hg] Shae Lue [facility] 04-03-2022 15:00-0500 Blood Pressure Location Camryn MOORELew [facility] 04-03-2022 15:00-0500 Diastolic blood pressure 96 mm[Hg] Camryn MOOREL [facility] 04-03-2022 15:00-0500 Heart rate 80 /min Camryn MOOREL [facility] 04-03-2022 15:00-0500 Respiratory rate 16 /min Camryn MOOREL [facility] 04-03-2022 15:00-0500 Systolic blood pressure 144 mm[Hg] Camryn MOOREL [facility] Encounters Encounter Date Encounter Type Care Provider Facility Start: 12-05-2023 End: 12-05-2023 Telephone encounter Katherine Keith MD Work Phone: [facility] Comment on above: [employer] Start: 11-26-2023 End: 11-26-2023 ambulatory MD Ester Cain Work Phone: [facility] Work Phone: Start: 11-26-2023 End: 11-26-2023 Departed Referred MD Ester Cain Work Phone: [facility] Start: 11-26-2023 End: 11-26-2023 ambulatory Camryn AGUSTIN Facility:[id number] Start: 11-21-2023 End: 11-24-2023 ambulatory Alfonso Loyd PA-C Work Phone: [facility] Comment on above: Tests Start: 11-12-2023 End: 11-12-2023 Patient encounter procedure Katherine Keith MD Work Phone: [facility] Comment on above: Adverse effect of tr eatment, sequela (Primary Dx); Acute low back pain, unspecified back pain laterality, unspecified whether sciatica present Start: 11-12-2023 End: 11-13-2023 Follow-up encounter Katherine Keith MD Work Phone: [facility] Comment on above: Follow up med reques t Start: 11-12-2023 End: 11-13-2023 ambulatory Katherine Keith MD Work Phone: [facility] Start: 11-12-2023 End: 11-12-2023 Subsequent hospital visit by physician Xr Main J1-4 Work Phone: Radiology Comment on above: History of laminecto my [Z98.890] Start: 11-11-2023 End: 11-11-2023 Follow-up encounter Katherine Keith MD Work Phone: [facility] Comment on above: Surgery followup Start: 11-11-2023 End: 11-11-2023 ambulatory Katherine Keith MD Work Phone: [facility] Start: 11-11-2023 End: 11-11-2023 Patient encounter procedure Camryn AGUSTIN [facility] [place] Start: 11-05-2023 End: 11-05-2023 Telephone encounter Alfonso Bonus PA-C Work Phone: [facility] Comment on above: Refill Request Insurance Authorizat ion Start: 10-29-2023 End: 10-30-2023 Refill Alfonso Bonus PA-C Work Phone: [facility] Comment on above: Refill Request Start: 10-23-2023 ambulatory Alfonso Bonus PA-C Work Phone: [facility] Comment on above: Office number Start: 10-22-2023 ambulatory Alfonso Bonus PA-C Work Phone: [facility] Comment on above: Medication Start: 10-21-2023 End: 10-21-2023 ambulatory Alfonso Bonus PA-C Work Phone: [facility] Comment on above: Right leg weakness ( Primary Dx); S/P lumbar fusion Fax numbers Start: 10-21-2023 End: 10-21-2023 Telemedicine consultation with patient Alfonso Karina SCHWARTZ Work Phone: [facility] Start: 10-16-2023 Telephone encounter Katherine wright MD Work Phone: Neurology Comment on above: medication Start: 10-15-2023 Refill Alfonso Karina SCHWARTZ Work Phone: [facility] Comment on above: Refill Request Start: 10-09-2023 MC Get Medical Advice Katherine Keith MD Work Phone: [facility] Comment on above: Script refills Start: 10-02-2023 End: 10-04-2023 Evaluation and management of inpatient ESTER Manning [facility] Facility:[facility] Start: 09-30-2023 Telephone encounter Julianne (Rsr Roc[facility] Comment on above: Research Start: 09-30-2023 End: 09-30-2023 Nursing evaluation of patient and report Wellington Castaneda RN [facility] Comment on above: S/P lumbar spinal fu grace (Primary Dx) Start: 09-30-2023 End: 09-30-2023 ambulatory ESTER CAIN Facility:[facility] Start: 09-24-2023 Telephone encounter Angelina MCKEON [facility] Comment on above: CARE CONTINUUM ADVIS OR ASSESSMENT Start: 09-18-2023 End: 09-18-2023 Refill Stephane Fair PA-C Work Phone: [facility] Comment on above: Refill Request Start: 09-17-2023 ambulatory Katherine Keith MD Work Phone: [facility] Start: 09-17-2023 Patient encounter status Margarette Keith MD Work Phone: [facility] Start: 09-16-2023 ambulatory Katherine Keith MD Work Phone: [facility] Comment on above: Legs swelling Start: 09-16-2023 Telephone encounter Katherine wright MD Work Phone: Neurology Comment on above: Patient Update Start: 09-15-2023 SELWYN Get Medical Advice Katherine Keith MD Work Phone: [facility] Comment on above: Med refill Start: 09-11-2023 ambulatory Katherine Keith MD Work Phone: [facility] Comment on above: Meds at home discuss ion Start: 09-09-2023 ambulatory Alfonso Bonus PA-C Work Phone: [facility] Comment on above: Phyo Ang Rodriguez Start: 09-09-2023 Follow-up encounter Katherine wright MD Work Phone: [facility] Comment on above: Surgery followup Start: 09-07-2023 End: 09-10-2023 Evaluation and management of inpatient CHRISTIANNE ZIEGLER Facility:[facility] Start: 09-05-2023 Refill Alfonso Bonus PA-C Work Phone: Medical Records Comment on above: Refill Request Start: 09-04-2023 Telephone encounter Katherine wright MD Work Phone: Neurology Comment on above: Patient Update Start: 09-02-2023 Refill Alofnso Bonus PA-C Work Phone: [facility] Comment on above: Refill Request Med refill Start: 09-01-2023 Admission to [facility] Katherine Keith MD Work Phone: [facility] Comment on above: 08/19/23 surgery Start: 09-01-2023 ambulatory Katherine Keith MD Work Phone: [facility] Start: 08-29-2023 Telephone encounter Katherine wright MD Work Phone: Neurology Comment on above: Medication Problem Start: 08-29-2023 End: 08-29-2023 ambulatory Alfonso Bonus PA-C Work Phone: [facility] Comment on above: Acute post-operative pain Start: 08-29-2023 End: 08-29-2023 Telemedicine consultation with patient Alfonso Bonus PA-C Work Phone: [facility] Start: 08-22-2023 End: 08-22-2023 Evaluation and management of inpatient ESTER CAIN Facility:[facility] Start: 08-19-2023 End: 08-22-2023 Evaluation and management of inpatient ESTER CAIN Facility:[facility] Start: 08-12-2023 End: 08-12-2023 ambulatory ESTER CAIN Facility:[facility] Start: 08-11-2023 Telephone encounter Angelina Hackett [facility] Comment on above: Follow Up Start: 08-10-2023 ambulatory Sharif Veras RN [address] [place] [id number] Comment on above: Blood Management Start: 08-06-2023 End: 08-06-2023 ambulatory ALFONSO LOYD Facility:[facility] Start: 08-06-2023 Encounter for other preprocedural examination [facility] Start: 08-06-2023 End: 08-06-2023 Admission to establishment [address] [address] Other Phone: Pre Anesthesia Start: 08-06-2023 End: 08-06-2023 Patient encounter procedure [address] [address] Other Phone: Pre Anesthesia Comment on above: Pre-op exam (Primary Dx); Primary hypertension; SVT (supraventricular tachycardia) (HCC); History of penicillin allergy Start: 08-06-2023 End: 08-06-2023 Preprocedural examination done [address] Other Phone: [facility] Work Phone: Start: 08-06-2023 End: 08-06-2023 ambulatory KATHERINE ALICIADanuta Facility:[facility] Start: 08-06-2023 Encounter for other preprocedural examination [facility] Start: 08-01-2023 Admission to [facility] Katherine Keith MD Work Phone: [facility] Comment on above: Sooner Surgery Date Start: 08-01-2023 ambulatory Katherine Keith MD Work Phone: [facility] Start: 08-01-2023 Telephone encounter Katherine wright MD Work Phone: [facility] Comment on above: Patient Update Start: 07-30-2023 End: 07-30-2023 ambulatory ESTER CAIN Facility:[facility] Start: 07-14-2023 Telephone encounter Katherine wright MD Work Phone: [facility] Comment on above: Forms Start: 07-11-2023 ambulatory Katherine Keith MD Work Phone: [facility] Start: 07-11-2023 Patient encounter status Margarette Keith MD Work Phone: [facility] Start: 06-22-2023 [facility] Katherine Keith MD Work Phone: [facility] Comment on above: Surgery date Start: 06-22-2023 ambulatory Katherine Keith MD Work Phone: [facility] Start: 06-11-2023 ambulatory Katherine Keith MD Work Phone: [facility] Start: 06-11-2023 Documentation procedure Mark Keith MD Work Phone: [facility] Comment on above: LTD Documents Start: 06-11-2023 Telephone encounter Katherine wright MD Work Phone: [facility] Comment on above: Forms Start: 05-29-2023 Telephone encounter Katherine wright MD Work Phone: [facility] Comment on above: Schedule Surgery Start: 05-28-2023 Admission to [facility] Katherine Keith MD Work Phone: [facility] Comment on above: Surgery date Start: 05-28-2023 ambulatory Katherine Keith MD Work Phone: [facility] Start: 05-23-2023 Admission to [facility] Katherine Keith MD Work Phone: [facility] Comment on above: Surgery date Start: 05-23-2023 ambulatory Katherine Keith MD Work Phone: [facility] Start: 05-19-2023 Admission to [facility] surgery center Katherine Keith MD Work Phone: [facility] Comment on above: Surgery schedule Start: 05-19-2023 ambulatory Katehrine Keith MD Work Phone: [facility] Start: 05-13-2023 End: 05-13-2023 ambulatory ESTER CAIN Facility:[facility] Start: 05-04-2023 ambulatory KATHERINE KEITH Facility: [facility] Start: 05-04-2023 End: 05-04-2023 Subsequent hospital visit by physician [facility] Work Phone: [facility] Radiology CT Scan Comment on above: Chronic low back simba n, unspecified back pain laterality, unspecified whether sciatica present [M54.50, G89.29] Start: 04-30-2023 End: 04-30-2023 ambulatory ESTER CAIN Facility:[facility] Start: 04-30-2023 End: 04-30-2023 Subsequent hospital visit by physician Xr Main A21 Radiology Comment on above: History of lumbar la minectomy for spinal cord decompression [Z98.890] Start: 04-30-2023 End: 04-30-2023 Patient encounter procedure Katherine Keith MD Work Phone: [facility] Comment on above: History of lumbar la minectomy for spinal cord decompression (Primary Dx); Degenerative scoliosis in adult patient; Chronic low back pain, unspecified back pain laterality, unspecified whether sciatica present Start: 04-30-2023 End: 04-30-2023 ambulatory ESTER CAIN Facility:[facility] Start: 04-30-2023 End: 04-30-2023 Subsequent hospital visit by physician Xr Main J1-4 Work Phone: Radiology Comment on above: Spinal stenosis, lum bar region with neurogenic claudication [M48.062] Start: 04-23-2023 ambulatory Shae Guillory Facility:[facility] Start: 03-19-2023 Chart abstracting Katherine landaverde MD Work Phone: Neurology Start: 01-08-2023 ambulatory Shae Guillory Facility:[facility] Start: 12-05-2022 End: 12-05-2022 ambulatory Shae M. Kahlil Facility:[facility] Start: 12-05-2022 End: 12-05-2022 Patient encounter procedure Shae Guillory [facility] Start: 10-30-2022 End: 10-30-2022 Patient encounter procedure Shae Guillory [facility] Start: 10-28-2022 End: 10-28-2022 ambulatory MD Ester Cain Work Phone: [facility] Work Phone: Start: 10-28-2022 End: 10-28-2022 Patient encounter procedure MD Ester Cain Work Phone: [facility] [place] Work Phone: Start: 09-04-2022 End: 09-04-2022 Patient encounter procedure Shae Guillory [facility] [facility] Start: 05-21-2022 End: 05-21-2022 Patient encounter procedure Camryn AGUSTNI General Surgery Nill/Said [facility] Start: 05-07-2022 End: 05-07-2022 Patient encounter procedure Camryn AGUSTIN General Surgery Nill/Said [facility] Start: 04-22-[address] Ester Cain Facility: Start: 04-14-2022 Encounter for preprocedural laboratory examination DR CAMRYN AGUSTIN . [facility] Start: 04-11-2022 End: 04-12-2022 Encounter for preprocedural laboratory examination DR WILTON NICHOEL Facility:[facility] Start: 04-11-2022 End: 04-12-[address] WILTON NICHOLE Facility:[facility] Start: 04-03-2022 End: 04-03-2022 Patient encounter procedure Camryn AGUSTIN General Surgery Nill/Lois [facility] Start: 03-16-2022 End: 03-16-2022 ambulatory Edenilson [facility] Facility:[facility]1 Start: 03-06-2022 End: 03-07-[address] ESTER CAIN . Facility:[facility]1 Start: 01-18-2022 End: 01-19-[address] ESTER CAIN . Facility:[facility]1 Start: 01-02-2022 Encounter for genera l adult medical examination without abnormal findings DR ESTER CAIN . [facility] Start: 01-01-2022 End: 01-02-[address] ESTER CAIN . Facility:[facility]1 Start: 12-28-2021 End: 12-29-[address] ESTER CAIN . Facility:[facility] Start: 12-28-2021 End: 12-29-2021 Encounter for general adult medical examination without abnormal findings DR ESTER CAIN . Facility:[facility] Start: 07-31-2020 End: 08-01-2020 ambulatory ESTER CAIN Facility:[facility] Procedures Date Procedure Procedure Detail Performing Clinician Start: 11-12-2023 Radex spine lumbosac ral 2/3 views Alfonso Loyd PA-C Work Phone: Start: 10-02-2023 Antibody screen ALFONSO LOYD Comment on above: Order Comment: Speci men Type: BLOOD SPECIMENOrdering Facility: [facility] Address: [address] [place] [address] Performed By: #### T SCR ####CC MAIN BLOOD BANKCLIA [id number] [place] [address] [place] Start: 10-02-2023 Exploration spinal fusion Camryn AGUSTIN Start: 10-02-2023 Celaya facetectomy&fora mtomy 1 sgm ea crv thrc/lmbr Camryn AGUSTIN Start: 08-06-2023 Antibody screen KATHERINE KEITH Comment on above: Order Comment: Speci men Type: BLOOD SPECIMEN Ordering Facility: [facility] Address: [address] [place] [address] Performed By: #### T [id number] #### [facility] CLIA [id number] [address] [place] [address] [place] Start: 08-06-2023 Ecg routine ecg w/le ast 12 lds i&r only Sanam Gill PA-C Work Phone: Start: 05-04-2023 Ct lumbar spine w/o contrast material Katherine Keith MD Work Phone: Start: 04-30-2023 Radex entir thrc lmb r crv sac spi w/skull 2/3 vw Katehrine Keith MD Work Phone: Start: 04-30-2023 Radex [...] Performed By: #### P SASC, VITAD #### [facility] [address] [place] [address] Dr. 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 Extraction of cataract Sergio el VAMSI History of excision of lamina of lumbar vertebra for decompression of spinal cord History of lumbar laminectomy for spinal cord decompression Xr A21 History of excision of lamina of lumbar vertebra for decompression of spinal cord History of lumbar laminectomy for spinal cord decompression Katherine Keith MD Work Phone: Laminectomy Camryn VAMSI Comment on above: x 3-- 2018, 2012, 20 00 Lumbar spinal fusion Camryn VAMSI Revision of fusion o f lumbar spine Camryn AGUSTIN Plan of Treatment Date Care Activity Detail Author Start: 12-28-2026 Prostate specific an tigen measurement Prostate Cancer Screening Discussion [facility] Start: 10-03-2026 Diabetes Screening Diabetes Screenin g [facility] Start: 09-09-2026 Diabetes Screening Diabetes Screenin g [facility] Start: 09-06-2026 Diabetes Screening Diabetes Screenin g [facility] Start: 08-21-2026 Diabetes Screening Diabetes Screenin g [facility] Start: 08-05-2026 Diabetes Screening Diabetes Screenin g [facility] Start: 01-13-2024 End: 01-13-2024 Patient encounter procedure 01/13/2024 1:40 PM EST Office Visit [facility] [address] [place] [phone] Katherine Keith MD [address] [place] [address] f/u with provider [facility] Comment on above: f/u with provider Start: 01-13-2024 End: 01-13-2024 ambulatory 01/13/2024 9:30 AM EST Procedure Neurology [address] [place] [id number] Adverse effect of treatment, sequela [T88.9XXS] Neurology Comment on above: Adverse effect of tr eatment, sequela [T88.9XXS] Start: 01-13-2024 End: 01-13-2024 Patient encounter procedure 01/13/2024 8:30 AM EST Appointment MRI Q [address] [address] MRI LUMBAR SPINE WO IVCON MRI Q Comment on above: MRI LUMBAR SPINE WO IVCON Start: 01-13-2024 End: 01-13-2024 Patient encounter procedure MRI Q Comment on above: MRI THORACIC SPINE W O IVCON Acute low back pain, unspecified back pain laterality, unspecified whether sciatica present [M54.50] Start: 12-16-2023 ambulatory Ambulatory Facility:[facility] Start: 11-12-2023 End: 11-12-2023 Patient encounter procedure 11/12/2023 2:20 PM EDT Office Visit [facility] [address] [place] [id number] Katherine Keith MD [address] [place] [address] post op in person [facility] Comment on above: post op in person Start: 11-12-2023 End: 11-12-2023 Patient encounter procedure 11/12/2023 1:10 PM EDT Appointment Radiology [address] [place], [place] [phone] post op lumbar Radiology Comment on above: post op lumbar Start: 11-09-2023 Covid-19 Vaccine ( season) Covid-19 Vaccine ( season) [facility] Start: 11-09-2023 Covid-19 Vaccine ( season) Covid-19 Vaccine ( season) [facility] Start: 11-09-2023 Influenza vaccination [facility] Start: 10-21-2023 End: 10-21-2023 ambulatory 10/21/2023 8:50 AM EDT [facility] [address] [place] [address] Alfonso Loyd PA-C [address] [place] [address] MYC Postop [facility] Comment on above: MYC Postop Start: 10-14-2023 End: 10-14-2023 Patient encounter procedure Radiology Comment on above: post op lumbar post op in person Start: 10-08-2023 End: 10-08-2023 Patient encounter procedure 10/08/2023 12:40 PM EDT Office Visit [facility] [address] [place], [place] [phone] Katherine Keith MD [address] [place], [place] [phone] post op in person [facility] Comment on above: post op in person Start: 10-08-2023 End: 10-08-2023 Patient encounter procedure 10/08/2023 11:30 AM EDT Appointment Radiology [address] [place] [address] post op lumbar Radiology Comment on above: [...] 09/30/2023 10:00 AM EDT Nurse Visit [facility] [address] [place], [place] [phone] Wellington Castaneda, PATRICIA Phone Education [facility] Comment on above: Phone Education Start: 09-18-2023 End: 09-18-2023 Patient encounter procedure 09/18/2023 2:00 PM EDT Office Visit [facility] Phone Screening [place] [address] Hillary [facility] Phone Screening Comment on above: Hillary Start: 09-17-2023 End: 12-17-2023 STAPHYLOCOCCUS AUREUS & MRSA SCREEN, PCR, NASAL STAPHYLOCOCCUS AUREUS & MRSA SCREEN, PCR, NASAL Lab Routine S/P lumbar spinal fusion Pre-op testing Expected: 09/17/2023, Expires: 12/17/2023 [facility] Work Phone: Comment on above: Expected: 09/17/2023 , Expires: 12/17/2023 Start: 09-16-2023 End: 09-16-2023 ambulatory 09/16/2023 10:10 AM EDT [facility] [address] [place] [phone] Alfonso Loyd PA-C [address] [place], [place] [phone] 2 week post op( virtual visit) [facility] Comment on above: 2 week post op( virt ual visit) Start: 09-02-2023 End: 09-02-2023 Admission to same day surgery center 09/02/2023 7:30 AM EDT - 09/02/2023 2:00 PM EDT Surgery Admitting [address] [place] [address] Katherine Keith MD [address] [place], [place] [phone] LAT LUMBAR SPINE FUSION Admitting Comment on [...] 7:30 AM EDT Hospital Encounter Admitting [address] [place] [address] Katherine Keith MD [address] [place] [address] History of laminectomy [Z98.890] Admitting Comment on above: History of laminecto my [Z98.890] Start: 08-29-2023 End: 08-29-2023 ambulatory 08/29/2023 8:30 AM EDT [facility] [address] [phone] Alfonso Loyd PA-C [address] [place] [address] 2 week post op( virtual visit) [facility] Comment on above: 2 week post op( virt ual visit) Start: 08-28-2023 End: 08-28-2023 ambulatory 08/28/2023 10:00 AM EDT [facility] Patient Outreach [facility] [address] [place], [place] [phone] Provider, Nurse Adolfo Keating [address] [place] [address] Nurse KEATING [facility] Comment on above: Nurse KEATING Start: 08-19-2023 End: 08-19-2023 Admission to same day surgery center 08/19/2023 7:30 AM EDT - 08/19/2023 2:00 PM EDT Surgery Admitting [address] [place] [address] Katherine Keith MD [address] [place] [address] LAT LUMBAR SPINE FUSION Admitting Comment on [...] 7:30 AM EDT Hospital Encounter Admitting [address] [place] [address] Katherine Keith MD [address] [place] [address] History of laminectomy [Z98.890] Admitting Comment on above: History of laminecto my [Z98.890] Start: 08-12-2023 End: 08-12-2023 ambulatory 08/12/2023 2:00 PM EDT [facility] Patient Outreach [facility] [address] [place] [address] Provider, Nurse Adolfo Keating [address] [place] [phone] Nurse KEATING [facility] Comment on above: Nurse KEATING Start: 08-11-2023 End: 11-10-2023 CBC W Auto Differential panel - Blood COMPLETE BLOOD COUNT AND DIFFERENTIAL Lab Routine History of laminectomy Degenerative scoliosis in adult patient Pre-op testing Iron deficiency anemia, unspecified iron deficiency anemia type Expected: 08/11/2023 (Approximate), Expires: 11/10/2023 [facility] Comment on above: Expected: 08/11/2023 (Approximate), Expires: 11/10/2023 Start: 08-11-2023 End: 11-10-2023 Ferritin [Mass/volume] in Serum or Plasma FERRITIN Lab Routine History of laminectomy Degenerative scoliosis in adult patient Pre-op testing Iron deficiency anemia, unspecified iron deficiency anemia type Expected: 08/11/2023 (Approximate), Expires: 11/10/2023 [facility] Comment on above: Expected: 08/11/2023 (Approximate), Expires: 11/10/2023 Start: 08-11-2023 End: 11-10-2023 Iron and Iron binding capacity panel - Serum or Plasma IRON AND TIBC Lab Routine History of laminectomy Degenerative scoliosis in adult patient Pre-op testing Iron deficiency anemia, unspecified iron deficiency anemia type Expected: 08/11/2023 (Approximate), Expires: 11/10/2023 [facility] Work Phone: Comment on above: Expected: 08/11/2023 (Approximate), Expires: 11/10/2023 Start: 08-11-2023 End: 11-10-2023 STAPHYLOCOCCUS AUREUS & MRSA SCREEN, PCR, NASAL STAPHYLOCOCCUS AUREUS & MRSA SCREEN, PCR, NASAL Lab Routine History of laminectomy Degenerative scoliosis in adult patient Pre-op testing Expected: 08/11/2023 (Approximate), Expires: 11/10/2023 [facility] Comment on above: Expected: 08/11/2023 (Approximate), Expires: 11/10/2023 Start: 08-06-2023 End: 08-06-2023 Patient encounter procedure Pre Anesthesia Comment on above: pre op pre op labs Start: 07-30-2023 End: 07-30-2023 Patient encounter procedure 07/30/2023 10:30 AM EDT Office [place] [phone] pre op gc [facility] Comment on above: pre op gc Start: 03-10-2023 Advance Directive Discussion Advance Directive Discussion [facility] Start: 03-10-2023 Behavioral Health Screening Behavioral Health Screening [facility] Start: 03-10-2023 Depression Assessment Depression Ass essment [facility] Start: 11-08-2022 Covid-19 Vaccine () Covid-19 Vaccine () [facility] Start: 11-08-2022 Influenza vaccination Influenza Vacc ine (#1) [facility] Start: 2022 Pneumococcal Vaccine : 65+ (1 of 1 - PCV) Pneumococcal Vaccine: 65+ (1 of 1 - PCV) [facility] Start: 2017 RSV Vaccine (1 - 1-d ose 60+ series) RSV Vaccine (1 - 1-dose 60+ series) [facility] Start: 2017 RSV Vaccine (1 - Ris k 60-74 years 1-dose series) RSV Vaccine (1 - Risk 60-74 years 1-dose series) [facility] Start: 2012 Prostate specific an tigen measurement Prostate Cancer Screening Discussion [facility] Start: 2007 Shingrix Vaccine (1 of 2) Mckinney grix Vaccine (1 of 2) [facility] Start: 2002 Diabetes Screening Diabetes Screenin g [facility] Start: 2002 Screening for malign ant neoplasm of colon [facility] Start: 1992 Lipid panel [facility] Start: 1976 Urine microalbumin profile DTaP,Tdap,Td Vaccine (1 - Tdap) [facility] Start: 1975 Annual PCP Team [employer] Disease Visit Annual PCP Team Chronic Disease Visit [facility] Start: 1975 Anxiety Screening Anxiety Screening [facility] Start: 1975 BP Controlled (<130/80) BP Controlle d (<130/80) [facility] Start: 1975 Depression Screening Depression Scre ening [facility] Start: 1975 Hepatitis C screening Hepatitis C Sc irasema [facility] Start: 1957 Covid-19 Vaccine (#1) Covid-19 Vacci ne (#1) [facility] End: 12-11-2024 CT Lumbar spine WO contrast CT LUMBAR SPINE WO IVCON Radiology Routine Acute low back pain, unspecified back pain laterality, unspecified whether sciatica present 1 Occurrences starting 11/12/2023 until 12/11/2024 [facility] Comment on above: 1 Occurrences starti ng 11/12/2023 until 12/11/2024 ECG COMPLETE ECG COMPLETE ECG Routine Pre-op exam 08/06/2023 8:48 AM EDT [facility] Work Phone: End: 04-30-2024 EMG(NEURO/NI) EMG(NEURO/NI) EMG Routine History of lumbar laminectomy for spinal cord decompression Degenerative scoliosis in adult patient Chronic low back pain, unspecified back pain laterality, unspecified whether sciatica present 1 Occurrences starting 04/30/2023 until 04/30/2024 [facility] Work Phone: Comment on above: 1 Occurrences starti ng 04/30/2023 until 04/30/2024 End: 11-11-2024 EMG(NEURO/NI) EMG(NEURO/NI) EMG Routine Adverse effect of treatment, sequela 1 Occurrences starting 11/12/2023 until 11/11/2024 [facility] Comment on above: 1 Occurrences starti ng 11/12/2023 until 11/11/2024 End: 12-11-2024 MR Lumbar spine WO contrast MRI LUMBAR SPINE WO IVCON Radiology Routine Adverse effect of treatment, sequela 1 Occurrences starting 11/12/2023 until 12/11/2024 [facility] Comment on above: 1 Occurrences starti ng 11/12/2023 until 12/11/2024 End: 12-11-2024 MR Thoracic spine WO contrast MRI THORACIC SPINE WO IVCON Radiology Routine Adverse effect of treatment, sequela 1 Occurrences starting 11/12/2023 until 12/11/2024 [facility] Work Phone: Comment on above: 1 Occurrences starti ng 11/12/2023 until 12/11/2024 End: 04-19-2024 Radex spine lumbosacral minimum 4 views XR LUMBAR MOTION 4V AP/LAT/ FLEX/EXT Radiology Routine Spinal stenosis, lumbar region with neurogenic claudication 1 Occurrences starting 03/21/2023 until 04/19/2024 [facility] Work Phone: Comment on above: 1 Occurrences starti ng 03/21/2023 until 04/19/2024 End: 08-10-2024 XR Lumbar spine AP and Lateral XR LUMBAR LIMITED 2V AP/LAT Radiology Routine History of laminectomy Degenerative scoliosis in adult patient 1 Occurrences starting 07/11/2023 until 08/10/2024 [facility] Comment on above: 1 Occurrences starti ng 07/11/2023 until 08/10/2024 [facility] Immunizations Immunization Date Immunization Notes Care Provider Asmita baeza 12-29-2020 influenza virus vaccine, unspecified formulation Shae Kahlil [facility] 12-29-2020 SARS-CoV-2 (COVID-19 ) mRNA BNT-162b2 vax Camryn NILL [facility] 06-09-2020 SARS-CoV-2 (COVID-19 ) mRNA BNT-162b2 vax Camryn NILL [facility] 05-19-2020 SARS-CoV-2 (COVID-19 ) mRNA BNT-162b2 vax Camryn NILL [facility] [place] Comment on above: Result Comment: 2022: [id number] NEGATED: Highlighted row has not occurred!04-03-2022 influenza virus vaccine, unspecified formulation Camryn NILL [facility] NEGATED: Highlighted row has not occurred!05-27-2019 influenza virus vaccine, live, attenuated, for intranasal use Camryn NILL [facility] Payers Date Payer Category Payer Self-pay 2015 Private Health Insurance [facility] [id number] 2015-Present [phone] [address] [address] [place] [address] HMO [id number] 1959 Private Health Insurance [id number] 1957 Unknown [id number] [id number] .647 1957 Unknown [id number] 2.16.840.1.001320.3.579.2 .356 1957 Unknown [id number] 2.16.840.1.822859.3.579.2 .593 1957 Unknown [id number] 2.16.840.1.066279.3.579.2 .593 1957 Unknown [id number] 2.16.840.1.745989.3.579.2 .593 1957 Unknown [id number] 2.16.840.1.872352.3.579.2 .593 1957 Unknown [id number] 2.16.840.1.632930.3.579.2 .593 1957 Unknown [id number] 2.16.840.1.331395.3.579.2 .593 1957 Unknown [id number] 2.16.840.1.440600.3.579.2 .593 1957 Unknown [id number] 2.16.840.1.982215.3.579.2 .727 1957 Unknown [id number] 2.16.840.1.958808.3.579.2 .727 1957 Unknown [id number] 2.16.840.1.775572.3.579.2 .727 1957 Unknown [id number] 2.16.840.1.981501.3.579.2 .727 1957 Unknown [id number] 2.16.840.1.248996.3.579.2 .727 1957 Unknown [id number] 2.16.840.1.534765.3.579.2 .727 Unknown Regular Insurance [id number] Unknown [id number] [id number] .531 Social History Date Type Detail Facility Start: 04-03-2022 End: 04-30-2023 Tobacco smoking status Never smoked tobacco (finding) [facility] [place] Tobacco smoking status Never [facility] Start: 04-30-2023 End: 08-06-2023 Sex Assigned At Male [facility] Start: 1955 [facility] Assigned At Male [facility] Start: 09-12-2008 End: 04-30-2023 Alcohol intake Not Asked [facility] Start: 03-20-2023 Gender identity Identifies as male gender (finding) [facility] Start: 03-20-2023 Sexual orientation Heterosexual (fin ding) [facility] Start: 04-30-2023 Tobacco use and exposure Former smokeless tobacco user [facility] End: 03-10-1999 History of tobacco use Chews Tobacco [facility] Start: 04-30-2023 End: 08-06-2023 History of Social function [facility] Start: 08-06-2023 End: 11-12-2023 Alcohol intake Lifetime non-drinker (finding) [facility] Has the Spredfast, Wishpot, or water Pinstant Karma threatened to shut off services in your home in past 12Mo No [facility] (I/We) worried wheth er (my/our) food would run out before (I/we) got money to buy more. Never true [facility] Medical Equipment Procedure Code Equipment Code Equipment Origin al Text Equipment Identifier Dates Signify Gel Instafill Cartridge 5cc [id number] Start: 08-19-2023 Creo Mis Locking Cap [id number] Sta rt: 08-19-2023 Graft Infuse 20g a Medium Bovine Collagen Rhbmp-2 2x1in Bone Vial Absorbable - [id number] Start: 08-19-2023 Signify Gel Instafill Cartridge [...] [id number] Start: 08-19-2023 Spacer Rise-L 3d Lordotic [id number] Spinal Nonsterile [id number] Start: 08-19-2023 Spacer Rise-L 3d Lordotic [id number] Spinal Nonsterile [id number] Start: 08-19-2023 Functional Status Date Assessment Result Facility 11-11-2023 Functional Status N/A [facility] 12-05-2022 Functional Status N/A [facility] 10-30-2022 Functional Status N/A [facility] 09-04-2022 Functional Status No [facility] 04-03-2022 Functional Status N/A [facility] Clinical Notes 05-07-2022 to 12-05-2023 Telephone Encounter - Wellington Castaneda RN - 12/05/2023 9:11 AM EDTTelephone Encounter - Wellington Castaneda RN - 12/05/2023 9:11 AM EDTAddendum Note - Alfonso Loyd PA-C - 11/13/2023 4:25 PM EDT Note Date & Type Note Facility 12-05-2023 Telephone encounter Note Called patient to follow up after steroid taper. No answer. Left message to return call to the office. [facility] 12-05-2023 Miscellaneous Notes Called patient to follow up after steroid taper. No answer. Left message to return call to the office. documented in this encounter [facility] 11-13-2023 Note Addended by: ALFONSO LOYD on: 11/13/2023 04:25 PM Modules accepted: Orders [facility] 11-13-2023 Miscellaneous Notes Addended by: ALFONSO LOYD on: 11/13/2023 04:25 PM Modules accepted: Orders documented in this encounter [facility] 11-12-2023 Note HNO ID: [id number] Author: KATHERINE KEITH MD Service: ? Author Type: Physician Type: Progress Notes Filed: 12/05/2023 04:56 Note Text: SPINE SURGERY FOLLOW UP This is an in-person visit. Staff note: We had a long discussion regarding his clinical course, At this juncture I would like to get more imaging and understand this weakness better The pain in his leg is much improved since surgery, however he has not had return of function to the ankle I am uncertain as to why, but I stressed the need to investigate any potential reversible ongoing issues As such imaging was ordered as well as EMG We reviewed current imaging in the office All questions were answered to stated satisfaction Katherine Keith MD SERVICE DATE: 11/12/2023 SURGERY DATE: 08/19/23 L2-L3 oblique interbody fusion L3-L4 oblique interbody [...] robot for pedicle screw placement and planning Operations During Hospitalization: 10/02/2023: Right L4/5 facetectomy Braden Rodriguez is seen for 1 month post operative follow up. Since last visit he is no different with regards to his R foot dorsiflexion weakness. Did get some relief of pain with oral steroid use. PAIN EVALUATION 11/05/2023 1307 11/12/2023 1409 Pain Level: 6 4 Pain Location: -- Leg-Right Description: Cramping;Shooting;Spasm;Stabbing;S tiffness;Tenderness;Tightness;Ting ling Throbbing;Pulsating Duration Amount of Time: 3 4 Duration Units: Months Months Frequency: Continuous Continuous Intervention/Comfort measure: Medication;Reposition Relaxation;Medication;Heat;Exercis e;Positioning Pain Radiation: Pain does not radiate ANTIPLATELET OR ANTICOAGULATION STATUS: No Patient Entered Questionnaires 04/28/2023 09/23/2023 11/05/2023 Spine Questions Pain Location: Leg Leg Leg Pain Duration: 1-3 months 1-3 months Symptoms from neck/cervical spine: No No No Employment Status: Sick leave or maternity leave Disabled due to back pain, permanently or temporarily Off work 1 month or more due to back/neck pain: Yes Yes Applied for/receive disability/WC due to low back/neck pain Yes Yes Involved in law suit/legal claim: No PROMIS Score Percentiles 04/28/2023 09/23/2023 11/05/2023 Physical Health Physical Function Percentile 2 0 2 Sleep Percentile 38 12 27* Fatigue Percentile 16* 31 12 Pain Interference Percentile 7 4 10 04/28/2023 09/23/2023 11/05/2023 PROMIS SOCIAL ROLE SCORE Social Role Satisfaction Percentile 5 12 2 04/28/2023 07/30/2023 11/05/2023 PROMIS Global Health Scale Physical Health Percentile 15 22* 4 Mental Health Percentile 9 19* 9 Percentiles provide an indication of how the patient's score ranks in relation to the general population. Higher percentile rankings indicate better function/quality of life. 50th percentile is the average of the general population and indicates half of respondents had a worse score. Descriptive Summary for PROMIS Physical Function T-score = 30 (Percentile 2) Unable - Do 2 hours of physical labor Unable - Walk at a normal speed. Depression Screenin04/28/2023 09/23/2023 11/05/2023 PHQ-9 Score 7 6 10 04/28/2023 09/23/2023 11/05/2023 PHQ-9 Self-harm Question Question 9 Not at all Not at all Not at all PHQ-9 Self-Harm (Item 9) response options: 0 Not at all 1 Several days 2 More than half the days 3 Nearly every day PHQ-9 Levels: 0-4 No to mild depression 5-9 Mild depression 10-14 Moderate depression 15-19 Moderately severe depression 20-27 Severe depression PHYSICAL EXAM: BP 146/77 Pulse 71 Resp 18 Ht 182.9 cm (6') Wt 93.1 kg (205 lb 4 oz) SpO2 100% BMI 27.84 kg/m? GENERAL APPEARANCE: Well nourished, well developed, and no apparent distress. NEURO PSYCH: Patient oriented to person, place, and time. Mood pleasant. Benign affect. MUSCULOSKELETAL VISUAL INSPECTION CERVICAL: WNL THORACIC: WNL LUMBAR: WNL MOTOR: 2/5 R ankle DF and EHL, 2/5 L ankle DF and EHL SENSORY: Normal sensory exam GAIT: Normal. DATA REVIEW [facility] records independently reviewed XR L spine from today show appropriately placed positioning of hardware with no acute abnormalities ASSESSMENT/PLAN (T88.9XXS) Adverse effect of treatment, sequela (primary encounter diagnosis) (M54.50) Acute low back pain, unspecified back pain laterality, unspecified whether sciatica present Braden Rodriguez has a condition that requires further workup. 1. MRI T and L spine ordered 2. CT L spine ordered 3. EMG lumbar plexus ordered t (more content not included)... [facility] 11-12-2023 History of Present illness Narrative Images from the original note were not included. SPINE SURGERY FOLLOW UP This is an in-person visit. Staff note: We had a long discussion regarding his clinical course, At this juncture I would like to get more imaging and understand this weakness better The pain in his leg is much improved since surgery, however he has not had return of function to the ankle I am uncertain as to why, but I stressed the need to investigate any potential reversible ongoing issues As such imaging was ordered as well as EMG We reviewed current imaging in the office All questions were answered to stated satisfaction Katherine Keith MD SERVICE DATE: 11/12/2023 SURGERY DATE: 08/19/23 L2-L3 oblique interbody fusion L3-L4 oblique interbody [...] robot for pedicle screw placement and planning Operations During Hospitalization: 10/02/2023: Right L4/5 facetectomy Braden Rodriguez is seen for 1 month post operative follow up. Since last visit he is no different with regards to his R foot dorsiflexion weakness. Did get some relief of pain with oral steroid use. PAIN EVALUATION 11/05/2023 1307 11/12/2023 1409 Pain Level: 6 4 Pain Location: -- Leg-Right Description: Cramping;Shooting;Spasm;Stabbing;S tiffness;Tenderness;Tightness;Ting ling Throbbing;Pulsating Duration Amount of Time: 3 4 Duration Units: Months Months Frequency: Continuous Continuous Intervention/Comfort measure: Medication;Reposition Relaxation;Medication;Heat;Exercis e;Positioning Pain Radiation: Pain does not radiate ANTIPLATELET OR ANTICOAGULATION STATUS: No Patient Entered Questionnaires 04/28/2023 09/23/2023 11/05/2023 Spine Questions Pain Location: Leg Leg Leg Pain Duration: 1-3 months 1-3 months Symptoms from neck/cervical spine: No No No Employment Status: Sick leave or maternity leave Disabled due to back pain, permanently or temporarily Off work 1 month or more due to back/neck pain: Yes Yes Applied for/receive disability/WC due to low back/neck pain Yes Yes Involved in law suit/legal claim: No PROMIS Score Percentiles 04/28/2023 09/23/2023 11/05/2023 Physical Health Physical Function Percentile 2 0 2 Sleep Percentile 38 12 27* Fatigue Percentile 16* 31 12 Pain Interference Percentile 7 4 10 04/28/2023 09/23/2023 11/05/2023 PROMIS SOCIAL ROLE SCORE Social Role Satisfaction Percentile 5 12 2 04/28/2023 07/30/2023 11/05/2023 PROMIS Global Health Scale Physical Health Percentile 15 22* 4 Mental Health Percentile 9 19* 9 Percentiles provide an indication of how the patient's score ranks in relation to the general population. Higher percentile rankings indicate better function/quality of life. 50th percentile is the average of the general population and indicates half of respondents had a worse score. Descriptive Summary for PROMIS Physical Function T-score = 30 (Percentile 2) Unable - Do 2 hours of physical labor Unable - Walk at a normal speed. Depression Screenin04/28/2023 09/23/2023 11/05/2023 PHQ-9 Score 7 6 10 04/28/2023 09/23/2023 11/05/2023 PHQ-9 Self-harm Question Question 9 Not at all Not at all Not at all PHQ-9 Self-Harm (Item 9) response options: 0 Not at all 1 Several days 2 More than half the days 3 Nearly every day PHQ-9 Levels: 0-4 No to mild depression 5-9 Mild depression 10-14 Moderate depression 15-19 Moderately severe depression 20-27 Severe depression PHYSICAL EXAM: BP 146/77 Pulse 71 Resp 18 Ht 182.9 cm (6') Wt 93.1 kg (205 lb 4 oz) SpO2 100% BMI 27.84 kg/m GENERAL APPEARANCE: Well nourished, well developed, and no apparent distress. NEURO PSYCH: Patient oriented to person, place, and time. Mood pleasant. Benign affect. MUSCULOSKELETAL VISUAL INSPECTION CERVICAL: WNL THORACIC: WNL LUMBAR: WNL MOTOR: 2/5 R ankle DF and EHL, 2/5 L ankle DF and EHL SENSORY: Normal sensory exam GAIT: Normal. DATA REVIEW [facility] records independently reviewed XR L spine from today show appropriately placed positioning of hardware with no acute abnormalities ASSESSMENT/PLAN (T88.9XXS) Adverse effect of treatment, sequela (primary encounter diagnosis) (M54.50) Acute low back pain, unspecified back pain laterality, unspecified whether sciatica present Braden Rodriguez has a condition that requires further workup. 1. MRI T and L spine ordered 2. CT L spine ordered 3. EMG lumbar plexus ordered to assess for possible sites of compression 4. Lyrica 50mg BID, norco refilled 2. Follow up: Following above Meenakshi Morin MD Spine Surgery Fellow [phone] [address] [place]: [facility] ([facility]) [facility]: [id number] I reviewed the information obtained and documented by the fellow. I examined the patient and evaluated all available films and pertinent documents. We discussed the case and I agree with the plans as outlined in this note. SIGNATURE: Katherine Keith MD PATIENT NAME: Braden Rodriguez DATE: November 12, 2023 TIME: 2:47 PM PAGER: documented in this encounter [facility] 11-12-2023 History of Present illness Narrative Radiology Service Progress Note PATIENT NAME: Braden Rodriguez DATE OF SERVICE: November 12, 2023 TIME: 1:13 PM PATIENT IDENTITY VERIFICATION COMPLETED USING TWO [...] PATIENT PRESENTS WITH AN IMPLANTABLE OR ATTACHED ORDER MANAGEMENT SPECIALIST: No RADIOLOGY DEPARTMENT: General X-ray: Exam(s) Completed: Spine X-Ray(s): Lumbar AP / LAT / L5-S1 PERIPHERAL IV DATA: Not applicable SIGNED BY: MARY Li) November 12, 2023 1:13 PM documented in this encounter [facility] 11-12-2023 Note HNO ID: [id number] Author: RIN MAYBERRY RT(R) Service: Radiology Author Type: Technologist Type: Progress Notes Filed: 11/12/2023 13:13 Note Text: Radiology Service Progress Note PATIENT NAME: Braden Rodriguez DATE OF SERVICE: November 12, 2023 TIME: 1:13 PM PATIENT IDENTITY VERIFICATION COMPLETED USING TWO [...] PATIENT PRESENTS WITH AN IMPLANTABLE OR ATTACHED ORDER MANAGEMENT SPECIALIST: No RADIOLOGY DEPARTMENT: General X-ray: Exam(s) Completed: Spine X-Ray(s): Lumbar AP / LAT / L5-S1 PERIPHERAL IV DATA: Not applicable SIGNED BY: RT Guillermo(R) November 12, 2023 1:13 PM [facility] 11-11-2023 Telephone encounter Note Patient returned call and was transferred to RN Discussed we will not be able to refill the narcotic until tomorrow, and will review in office tomorrow. Patient also has questions and concerns for the nerve pain and right foot drop that has persisted. No further questions, he voiced appreciation for the call [facility] 11-11-2023 Miscellaneous Notes Patient returned call and was transferred to RN Discussed we will not be able to refill the narcotic until tomorrow, and will review in office tomorrow. Patient also has questions and concerns for the nerve pain and right foot drop that has persisted. No further questions, he voiced appreciation for the call Attempted to contact patient to discuss his my chart message and medication refill request. Left message to return call to the office. documented in this encounter [facility] 11-11-2023 Telephone encounter Note Attempted to contact patient to discuss his my chart message and medication refill request. Left message to return call to the office. [facility] 11-11-2023 Note General Surgery Offi ce/Clinic Note Chief Complaint consultation for colonoscopy HPI Staff 68 year old male presents on consultation from Dr. Cain for anemia. Labs completed 10/15 with H/H 13.2 and 39.3. Patient had surgery 2 weeks prior to labs. Last colonoscopy completed 10/2012 with diverticulosis and internal hemorrhoids. Denies abdominal or rectal pain. No rectal bleeding or change in bowel habits. Denies nausea or vomiting. No unexplained weight loss. No known family history of colon cancer. History of Present Illness 68 yo male with h/o htn, hypercholesterolemia, lumbar spondylosis, h/o SVT, referred for colorectal screening; denies change in bms or blood in stools, no abd complaints; abd operations significant for cholecystectomy and primary repair of epigastric hernia; no asa or NSAID use; no tobacco use; no fmhx of GI malignancy or IBD. Review of Systems PHQ Score Initial Depression Screen Score: 0 SCORE ROS - Provider Constitutional: no fever, no sweats, no weight loss. Eyes: yes glasses, no blurred vision, no visual loss. [...] noncontributory. Physical Exam Vitals & Measurements HR: 72(Peripheral) RR: 16 BP: 136/96 HT: 72 in HT: 182.8 cm WT: 94 kg WT: 206.8 lb BMI: 28.13 HEENT: normal conjunctiva, sclera clear, no scleral icterus, EOM intact, PERRLA, oral mucosa moist without lesions. Neck: trachea midline, no mass, symmetric, no thyromegaly or nodules, no adenopathy Respiratory: lungs CTA, respirations non labored. Cardiovascular: regular rate and rhythm, no murmur, no pedal edema or varicosities. Gastrointestinal: soft, non distended, no tenderness, no masses, no palpable hernias, diastasis recti no, no hepatosplenomegaly; normal bs Lymphatic: no cervical adenopathy, no supraclavicular adenopathy. Musculoskeletal: normal gait, digits and nails without infection, nodes, cyanosis, clubbing. Skin: no rashes, no lesions, no ulcers, no subcutaneous nodules, induration. Psychiatric/Neuro: oriented to time, place, person, judgement normal, affect appropriate for age, insight intact, no focal deficits. Tests: labs reviewed, , review of old records completed , Discussed surgical options, risks, and possible complications with patient. Assessment/Plan 1. Screening for malignant neoplasm of colon (Z12.11: Encounter for screening for malignant neoplasm of colon) plan colonoscopy under anesthesia, informed consent obtained. 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 SVT (supraventricular tachycardia) Varicose veins of lower extremity Ventricular premature contractions Historical Epigastric pain Inflamed skin tag Neoplasm of uncertain behavior of skin Seborrheic keratosis Procedure/Surgical History Exploration of spinal fusion (10/02/2023), Laminectomy, facetectomy and foraminotomy (unilateral or bilateral with decompression of spinal cord, cauda equina and/or nerve root[s], [eg, spinal or lateral recess stenosis]), single vertebral segment; each additional vertebral segment, cervical, thora (10/02/2023), Transperineal needle biopsy of prostate (11/27/2022), Laparoscopic repair of obstructed ventral hernia (04/29/2022), Colonoscopy (10/2012), Cholecystectomy (03/10/1993), Cataract extraction, Excision of lesion of skin, Laminectomy, Lumbar spinal fusion, Revision of fusion of lumbar spine. Medications carvedilol 25 mg Tab, 25 mg= 1 tab(s), Oral, Daily cyclobenzaprine 10 mg Tab, 10 mg= 1 tab(s), Oral, TID, PRN Lyrica 50 mg Cap, 50 mg= 1 cap( (more content not included)... [facility] Comment on above: Result Comment: Elec tronically Signed By: VAMSI JERNIGAN, Camryn Baker\Date and Time Signed: 11/11/23 14:24 EDT 11-05-2023 Telephone encounter Note Prior auth completed, awaiting approval [facility] 11-05-2023 Miscellaneous Notes Prior auth completed, awaiting approval [facility] called re Rx Refill, needs a Pre-auth because insurance only cover 2 refills. Pls do the pre-auth through: covermymeds. The gibbons: [id number] (low/upper is ok). Pls let [facility] know once it's approved by call [phone] documented in this encounter [facility] 11-05-2023 Telephone encounter Note Prior auth completed [id number] [facility] 11-05-2023 Miscellaneous Notes Prior auth completed [id number] Received a fax from [employer] requesting a prior authorization for: Hydrocodone-Acetaminophen 5-325 MG Tablets Cover [employer] Gibbons: [id number] Pharmacy: [id number] Fax scanned in to pt's chart for our records. documented in this encounter [facility] 11-05-2023 Telephone encounter Note Received a fax from [employer] requesting a prior authorization for: Hydrocodone-Acetaminophen 5-325 MG Tablets Cover My Meds Gibbons: [id number] Pharmacy: [facility] #[id number] Fax scanned in to pt's chart for our records. [facility] 11-05-2023 Telephone encounter Note [facility] called re Rx Refill, needs a Pre-auth because insurance only cover 2 refills. Pls do the pre-auth through: covermymeds. The gibbons: [id number] (low/upper is ok). Pls let [facility] know once it's approved by call [phone] [facility] 10-23-2023 Note Addended by: ALFONSO LOYD on: 10/23/2023 11:22 AM Modules accepted: Orders [facility] 10-23-2023 Miscellaneous Notes Addended by: ALFONSO LOYD on: 10/23/2023 11:22 AM Modules accepted: Orders Called [facility] pharmacy and confirmed they do not have the Sheldon available. Pharmacist cancelled order. Will update JUDY to send to new pharmacy listed. documented in this encounter [facility] 10-23-2023 Telephone encounter Note Called [facility] pharmacy and confirmed they do not have the Sheldon available. Pharmacist cancelled order. Will update JUDY to send to new pharmacy listed. [facility] 10-21-2023 Note HNO ID: [id number] Author: ALFONSO LOYD PA-C Service: ? Author Type: Physician Emergency Technician Type: Progress Notes Filed: 10/21/2023 09:03 Note Text: SPINE SURGERY FOLLOW UP This is a virtual visit using [employer] Video Visit. It required patient-provider interaction for the medical decision making as documented below. I have communicated my name and active licensure. The patient's identity and physical location were verified at the time of this visit. Either the patient or their legal student services representative has been informed of the risks and benefits of -- and alternatives to -- treatment through a remote evaluation and consents to proceed with the evaluation remotely. SERVICE DATE: 10/21/2023 SURGERY DATE: 08/19/23 SURGERY/PROCEDURE(S): L2-L3 oblique interbody [...] robot for pedicle screw placement and planning Operations During Hospitalization: 10/02/2023: Right L4/5 facetectomy Seen virtually for 2 week post operative appointment. Since surgery he has noticed no improvement with his right leg weakness. He's still experiencing a drop foot. No new symptoms. He stopped using all medications. Incision is healing without any complications. Patient Entered Questionnaires 04/28/2023 09/23/2023 Spine Questions Pain Location: Leg Leg Pain Duration: 1-3 months Symptoms from neck/cervical spine: No No Employment Status: Sick leave or maternity leave Disabled due to back pain, permanently or temporarily Off work 1 month or more due to back/neck pain: Yes Yes Applied for/receive disability/WC due to low back/neck pain Yes Yes Involved in law suit/legal claim: No PROMIS Score Percentiles 04/28/2023 09/23/2023 Physical Health Physical Function Percentile 2 0 Sleep Percentile 38 12 Fatigue Percentile 16* 31 Pain Interference Percentile 7 4 04/28/2023 09/23/2023 PROMIS SOCIAL ROLE SCORE Social Role Satisfaction Percentile 5 12 04/28/2023 07/30/2023 PROMIS Global Health Scale Physical Health Percentile 15 22* Mental Health Percentile 9 19* Percentiles provide an indication of how the patient's score ranks in relation to the general population. Higher percentile rankings indicate better function/quality of life. 50th percentile is the average of the general population and indicates half of respondents had a worse score. Descriptive Summary for PROMIS Physical Function T-score = 24 (Percentile 0) Unable - Do chores such as vacuuming or yard work. Much difficulty - Run errands and shop. Much difficulty - Walk about the house. Depression Screenin04/28/2023 09/23/2023 PHQ-9 Score 7 6 04/28/2023 09/23/2023 PHQ-9 Self-harm Question Question 9 Not at all Not at all PHQ-9 Self-Harm (Item 9) [...] DATA REVIEW [facility] records independently reviewed ASSESSMENT/PLAN (R29.898) Right leg weakness (primary encounter diagnosis) (Z98.1) S/P lumbar fusion Seen virtually for 2 week post operative appointment. He continues to notices right sided weakness and foot drop which occurred after his first surgery in August. He has not noticed any improvements at this time. He's no longer using any medications. We discussed plan of starting PT with restrictions. Order placed and will be faxed to a local facility once he decides where he will be going. Follow up at [address] Keith as scheduled. Call with any changes prior. The majority of the visit was spent counseling and/or coordinating care for the patient. Total face to face time was 30 minutes. SIGNATURE: Alfonso Loyd PA-C PATIENT NAME: Braden Rodriguez DATE: October 21, 2023 TIME: 8:40 AM PAGER: [facility] 10-21-2023 History of Present illness Narrative SPINE SURGERY FOLLOW UP This is a virtual visit using [employer] Video Visit. It required patient-provider interaction for the medical decision making as documented below. I have communicated my name and active licensure. The patient's identity and physical location were verified at the time of this visit. Either the patient or their legal student services representative has been informed of the risks and benefits of -- and alternatives to -- treatment through a remote evaluation and consents to proceed with the evaluation remotely. SERVICE DATE: 10/21/2023 SURGERY DATE: 08/19/23 SURGERY/PROCEDURE(S): L2-L3 oblique interbody [...] robot for pedicle screw placement and planning Operations During Hospitalization: 10/02/2023: Right L4/5 facetectomy Seen virtually for 2 week post operative appointment. Since surgery he has noticed no improvement with his right leg weakness. He's still experiencing a drop foot. No new symptoms. He stopped using all medications. Incision is healing without any complications. Patient Entered Questionnaires 04/28/2023 09/23/2023 Spine Questions Pain Location: Leg Leg Pain Duration: 1-3 months Symptoms from neck/cervical spine: No No Employment Status: Sick leave or maternity leave Disabled due to back pain, permanently or temporarily Off work 1 month or more due to back/neck pain: Yes Yes Applied for/receive disability/WC due to low back/neck pain Yes Yes Involved in law suit/legal claim: No PROMIS Score Percentiles 04/28/2023 09/23/2023 Physical Health Physical Function Percentile 2 0 Sleep Percentile 38 12 Fatigue Percentile 16* 31 Pain Interference Percentile 7 4 04/28/2023 09/23/2023 PROMIS SOCIAL ROLE SCORE Social Role Satisfaction Percentile 5 12 04/28/2023 07/30/2023 PROMIS Global Health Scale Physical Health Percentile 15 22* Mental Health Percentile 9 19* Percentiles provide an indication of how the patient's score ranks in relation to the general population. Higher percentile rankings indicate better function/quality of life. 50th percentile is the average of the general population and indicates half of respondents had a worse score. Descriptive Summary for PROMIS Physical Function T-score = 24 (Percentile 0) Unable - Do chores such as vacuuming or yard work. Much difficulty - Run errands and shop. Much difficulty - Walk about the house. Depression Screenin04/28/2023 09/23/2023 PHQ-9 Score 7 6 04/28/2023 09/23/2023 PHQ-9 Self-harm Question Question 9 Not at all Not at all PHQ-9 Self-Harm (Item 9) [...] DATA REVIEW [facility] records independently reviewed ASSESSMENT/PLAN (U12.601) Right leg weakness (primary encounter diagnosis) (Z98.1) S/P lumbar fusion Seen virtually for 2 week post operative appointment. He continues to notices right sided weakness and foot drop which occurred after his first surgery in August. He has not noticed any improvements at this time. He's no longer using any medications. We discussed plan of starting PT with restrictions. Order placed and will be faxed to a local facility once he decides where he will be going. Follow up at [address] Keith as scheduled. Call with any changes prior. The majority of the visit was spent counseling and/or coordinating care for the patient. Total face to face time was 30 minutes. SIGNATURE: Alfonso Loyd PA-C PATIENT NAME: Braden Rodriguez DATE: October 21, 2023 TIME: 8:40 AM PAGER: documented in this encounter [facility] 10-16-2023 Telephone encounter Note Noted medication update. No Issue for change from surgical standpoint. [facility] 10-16-2023 Miscellaneous Notes Noted medication update. No Issue for change from surgical standpoint. Naye from Dr. Ester Cain's office called. Pt was seen yesterday complaining of the side effect from Gabapentin and the doctor change the medication to Lyrica 50 mg. documented in this encounter [facility] 10-16-2023 Telephone encounter Note Naye from Dr. Ester Cain's office called. Pt was seen yesterday complaining of the side effect from Gabapentin and the doctor change the medication to Lyrica 50 mg. [facility] Work Phone: 10-09-2023 Note Addended by: ALFONSO LOYD on: 10/09/2023 03:44 PM Modules accepted: Orders [facility] 10-09-2023 Miscellaneous Notes Addended by: ALFONSO LOYD on: 10/09/2023 03:44 PM Modules accepted: Orders documented in this encounter [facility] 10-04-2023 Note HNO ID: [id number] Author: MANUEL VERA ? Service: Pharmacy Author Type: Medical Insurance Coder Type: Plan of Care Filed: 10/04/2023 14:27 Note Text: PHARMACY BEDSIDE DELIVERY SERVICE Patient Name: Braden Rodriguez The marked outpatient medications were Filled at: [facility] and delivered to the [...] your Primary Care Provider. Manuel Vera PAGER: [phone] October 04, 2023 12:09 PM [facility] 10-04-2023 Note HNO ID: [id number] Author: MANUEL VERA ? Service: Pharmacy Author Type: Medical Insurance Coder Type: Plan of Care Filed: 10/04/2023 12:09 Note Text: Insurance investigation completed Patient has active prescription insurance: Yes - Patient's insurance is in-network with [facility] Insurance loaded into [place]: Yes Test claim was completed to verify insurance is active: Successful Any questions, please contact your medication employee benefits coordinator. Pager #: [phone] [facility] 10-04-2023 Note HNO ID: [id number] Author: HUI WHYTE MD Service: Neurosurgery Author [...] EHL 3/5 PF 5/5 R LE: HF 5/ KE 5/5 DF 1/5 EHL 1/ PF 5/5 Labs: CBC: Recent Labs 10/04/23 [...] and Airways Line Duration Peripheral 10/02/23 1245 [facility] Right Hand 18 Gauge 1 day Plan of care discussed with: Provider, RN, Patient. Hui Whyte MD If Urgent/5p-7a/Wknd Main [place]: [id number] Spine Fellow [facility] 10-03-2023 Note HNO ID: [id number] Author: JAYLON CARABALLO LSW Service: Care Management Author Type: Field Assistant Type: Care Mgt Initial Assessment Filed: 10/03/2023 12:11 Note Text: CARE MANAGEMENT: ASSESSMENT AND DISCHARGE PLAN SERVICE DATE: October 03, 2023 SERVICE TIME: 12:09 PM PCP: Ester Cain MD Primary Contact: Extended Emergency Contact Information Primary Emergency Contact: Marycarmen Rodriguez Address: [address] [place] [address] Mobile Relation: Spouse Secondary Emergency Contact: NORA RODRIGUEZ Mobile Relation: Son Admission Status: Inpatient Insurance Provider: [facility] UMR CHOICE PLUS Post-Acute Discharge Plan: Chart [...] 03, 2023 TIME: 12:09 PM CONTACT #: [phone] [facility] 10-03-2023 Note HNO ID: [id number] Author: SARAY VIGIL APRN.CNP Service: Neurosurgery Author Type: Nurse Practitioner Type: Progress Notes Filed: 10/03/2023 11:30 Note Text: SERVICE DATE: 10/03/2023 SERVICE TIME: 11:29 AM SPINE SURGERY TEAM PROGRESS NOTE After 6 PM (1800) please page Camryn Cope PA-C [phone], backup pager [phone]. Attending: Katherine Hogue MD Location: H060 [id number]/[id number] [...] dysfunction: No OBJECTIVE: LABS: CBC: Recent Labs 10/03/23453 WBC 11.20* HB 11.5* HCT 35.0* PLT 354 MCV 97.5 RDWCV 11.9 COAG: No results for input(s): APTT , INR in the last 168 hours. BMP: Recent Labs 10/03/23453 GLUC 121* NA 138 K 4.0 CHLOR 105 CO2 23 ANION 10 BUN 21 CREAT 0.92 CHEM: Recent Labs 10/03/23453 CA 9.0 HEPATIC: No results for input(s): [...] BICEPS TRICEPS DELTS Wrist Ext Wrist Flex Hospital Pharmacist HI R 5/5 5/5 5/5 5/5 5/5 [...] and Airways Line Duration Peripheral 10/02/23 1245 [facility] Right Hand 18 Gauge <1 day Reviewed lines and will discuss with nurse to discontinue. Current restraint orders: None Assessment AND Plan Active Hospital Problems as of 10/03/2023 Noted - Resolved [facility] Primary hypertension 08/06/2023 - Present Yes Current [...] 10/02/232 -- 10/02/23 (more content not included)... [facility] 10-03-2023 Note HNO ID: [id number] Author: TANISHA HERRERA MD Service: Orthopaedic Surgery [...] HF 5/5 KE 5/5 DF 1/5 EHL 1/ PF 5/5 Labs: CBC:No results for input(s): [...] and Airways Line Duration Peripheral 10/02/23 1245 [facility] Right Hand 18 Gauge <1 day Drain Duration Indwelling Urinary Catheter 10/02/23 1445 [place] 16 Fr <1 day Plan of care discussed with: Provider, RN, Patient. Tanisha Herrera MD, MS PGY-1 Orthopaedic Surgery Personal cell/pager: [phone] Between 5PM to 7AM, on weekends or if urgent, please page the orthopaedic on-call resident at: [phone] ([phone]) for [facility] patients [phone] for [facility] patients [phone] for [facility] patients [phone] for [facility] patients 59076 for [facility] patients [facility] 10-02-2023 Note HNO ID: [id number] Author: HUI WHYTE MD Service: Neurosurgery Author [...] and Airways Line Duration Peripheral 10/02/23 1245 [facility] Right Hand 18 Gauge <1 day Drain Duration Indwelling Urinary Catheter 10/02/23 1445 [place] 16 Fr <1 day Plan of care discussed with: Provider, RN, Patient. Hui Whyte MD If Urgent/5p-7a/Wknd Main [place]: [facility] [place] Spine Fellow [facility] 10-02-2023 Note HNO ID: [id number] Author: DARIUS JONES DO Service: ? Author Type: Resident Type: Anesthesia Procedure Notes Filed: 10/02/2023 15:08 Note Text: ANESTHESIOLOGY PROCEDURE NOTE Airway General Information Procedure Start Time/Medication Administration: 10/02/2023 2:42 PM Procedure End Time: 10/02/2023 3:08 PM Patient location during procedure: OR Timeout Performed Pre-procedure: timeout performed Consent Obtained: Yes Patient identity confirmed: arm band Staffing Resident: Darius Jonse DO Performed by: resident Indications and Patient [...] October 02, 2023 TIME: 3:07 PM CSN: [id number] [facility] 09-30-2023 Telephone encounter Note Summary: Research Interest: [...] Medical Student Visiting Researcher OUTCOMES RESEARCH MAIN [facility] 09-30-2023 Miscellaneous Notes Summary: Research Interest: [...] OUTCOMES RESEARCH MAIN documented in this encounter [facility] 09-30-2023 Note HNO ID: [id number] Author: WELLINGTON CASTANEDA RN Service: ? Author Type: Registered Nurse Type: Progress Notes Filed: 09/30/2023 10:11 Note Text: Neuro SPINE CARE COORDINATION PRE-OP VISIT Met with patient via phone for pre op education. Given both written and verbal instructions re : Skin prep, wound care, pain management and post op restrictions. Provided to patient: [facility] Surgery Guide, skin prep supplies, Spine Surgery Pre/post op education packet. Yes Reviewed with patient to report to desk J19 for surgery ? Yes. Reviewed with the patient to call [phone] the day before to get surgery report [...] of son and daughter. Wellington Castaneda RN [facility] 09-30-2023 History of Present illness Narrative Neuro SPINE CARE COORDINATION PRE-OP VISIT Met with patient via phone for pre op education. Given both written and verbal instructions re : Skin prep, wound care, pain management and post op restrictions. Provided to patient: [facility] Surgery Guide, skin prep supplies, Spine Surgery Pre/post op education packet. Yes Reviewed with patient to report to desk J19 for surgery ? Yes. Reviewed with the patient to call [phone] the day before to get surgery report [...] Wellington Castaneda RN documented in this encounter [facility] 09-24-2023 Telephone encounter Note CARE CONTINUUM ADVISOR ASSESSMENT PRIMARY CARE PHYSICIAN: Ester Cain MD OR Surgery Date: 10/02/23 Health Insurance: [employer] [facility] Financial Resources: Retired Primary Contact: Extended Emergency Contact Information Primary Emergency Contact: Marycarmen Rodriguez Address: [address] [place] [address] Mobile Relation: Spouse Secondary Emergency Contact: NORA RODRIGUEZ Mobile Relation: Son Other Important Patient Contacts: None 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 No FREEDOM OF CHOICE: Level of Care Discussed: Home Care Financial Disclosure Provided: No Financial Disclaimer Provided: No Provider List: Home Care Provider list within the patient's requested geographic area shared with the patient/family: Yes - Within [address] of [address] [place] [address] Provider Choices Collected Home Health: no prefernece Interventions: N/A SIGNATURE: DALLAS Barros PATIENT NAME: Braden Rodriguez DATE: September 24, 2023 TIME: 1:00 PM PAGER/CONTACT #: [facility] 09-24-2023 Miscellaneous Notes CARE CONTINUUM ADVISOR ASSESSMENT PRIMARY CARE PHYSICIAN: Ester aCin MD OR Surgery Date: 10/02/23 Health Insurance: [employer] [facility] Financial Resources: Retired Primary Contact: Extended Emergency Contact Information Primary Emergency Contact: Marycarmen Rodriguez Address: [address] [place] [address] Mobile Relation: Spouse Secondary Emergency Contact: NORA RODRIGUEZ Mobile Relation: Son Other Important Patient Contacts: None 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 No FREEDOM OF CHOICE: Level of Care Discussed: Home Care Financial Disclosure Provided: No Financial Disclaimer Provided: No Provider List: Home Care Provider list within the patient's requested geographic area shared with the patient/family: Yes - Within [address] miles of [address] [place] [address] PAC Provider Choices Collected Home Health: no prefernece Interventions: N/A SIGNATURE: DALLAS Barros PATIENT NAME: Braden Rodriguez DATE: September 24, 2023 TIME: 1:00 PM PAGER/CONTACT #: CM was able to leave a brief detailed message on identified vm requesting call back to discuss post op care. CM provided contact information. documented in this encounter [facility] 09-24-2023 Telephone encounter Note AYANA was able to leave a brief detailed message on identified vm requesting call back to discuss post op care. AYANA provided contact information. [facility] 09-16-2023 Telephone encounter Note Attempted to return call to home care PT Patient is coming back in for surgery in 2 weeks. Does not nee home care at this time. [facility] 09-16-2023 Miscellaneous Notes Attempted to return call to home care PT Patient is coming back in for surgery in 2 weeks. Does not nee home care at this time. Call received for Katherine Keith MD regarding Braden Rodriguez. Caller: Other: Devin with [facility] Patient Identified by Name and : Yes Reason for Call: Devin is calling to notify Dr. Keith that patient has not been seen for PT Devin states patient will not return calls Is there any additional information the provider should know? No, no response needed Last Office Visit: 09/04/2023 Next scheduled appointment: 10/08/2023 Best number to reach caller: Devin [phone] Best time to reach caller: 9 am till 5 pm Is it OK to leave a detailed voice message? Yes Melia Ochoa Communication Clerk documented in this encounter [facility] 09-16-2023 Telephone encounter Note Call received for Katherine Keith MD regarding Braden Rodriguez. Caller: Other: [facility] Patient Identified by Name and : Yes Reason for Call: Devin is calling to notify Dr. Keith that patient has not been seen for PT Devin states patient will not return calls Is there any additional information the provider should know? No, no response needed Last Office Visit: 09/04/2023 Next scheduled appointment: 10/08/2023 Best number to reach caller: Devin [phone] Best time to reach caller: 9 am till 5 pm Is it OK to leave a detailed voice message? Yes Melia Ochoa Communication Clerk [facility] 09-15-2023 Note Addended by: STEPHANE FAIR on: 09/15/2023 01:41 PM Modules accepted: Orders [facility] 09-15-2023 Miscellaneous Notes Addended by: STEPHANE [...] PA-C Spine Surgery documented in this encounter [facility] 09-15-2023 Telephone encounter Note Reviewed in [...] 7 days. Stephane Fair PA-C Spine Surgery [facility] 09-12-2023 Note Addended by: ALFONSO LOYD on: 09/12/2023 02:35 PM Modules accepted: Orders [facility] 09-12-2023 Miscellaneous Notes Addended by: ALFONSO LOYD on: 09/12/2023 02:35 PM Modules accepted: Orders documented in this encounter [facility] 09-10-2023 Note HNO ID: [id number] Author: MANUEL VERA ? Service: Pharmacy Author Type: Medical Insurance Coder Type: Plan of Care Filed: 09/10/2023 16:32 Note Text: PHARMACY BEDSIDE DELIVERY SERVICE Patient Name: Braden Rodriguez The marked outpatient medications were Filled at: [facility] and delivered to the [...] Commonly known as: ROBAXIN Manuel Vera PAGER: [phone] September 10, 2023 4:30 PM [facility] 09-10-2023 Note HNO ID: [id number] Author: MANUEL VERA, ? Service: Pharmacy Author Type: Medical Insurance Coder Type: Plan of Care Filed: 09/10/2023 15:06 Note Text: Insurance investigation completed Patient has active prescription insurance: Yes - Patient's insurance is in-network with [facility] Insurance loaded into [place]: Yes Test claim was completed to verify insurance is active: Successful Any questions, please contact your medication employee benefits coordinator. Pager #: [phone] [facility] 09-10-2023 Note HNO ID: [id number] Author: CHILANGO COTTO PA-C Service: Neurosurgery Author Type: Physician Emergency Technician Type: Progress Notes Filed: 09/10/2023 12:52 Note Text: SERVICE DATE: 09/10/2023 SERVICE TIME: 12:52 PM SPINE SURGERY TEAM PROGRESS NOTE After 6 PM (1800) please page Camryn Cope PA-C [phone], backup pager [phone]. Attending: Katherine Hogue MD Location: [place] [address] Hospital Day: 4 MEDICATIONS: Current medications and [...] CrCl cannot be calculated (Unknown ideal weight.). 09/09/232 09/10/23 0053 09/10/23 0552 09/10/23 0909 BP: 163/83 [...] BICEPS TRICEPS DELTS Wrist Ext Wrist Flex Hospital Pharmacist HI R 5/5 5/5 5/5 5/5 5/5 5/5 5/5 L 5/5 5/5 5/5 5/5 5/5 5/5 5/5 LE Hip Flex Knee Flex Knee Extend Plantarflex Dorsiflex EHL R 5/5 5/5 5/5 4+/5 0/5 0/5 L 5/5 5/5 5/5 5/5 0/5 0/5 Sensory: Diminished sensation on dorsal aspect of foot bilaterally QUALITY CHECKLIST: Lines, Drains, and Airways Line Duration Peripheral 09/07/232047 [facility] Short Right Antecubital 20 Gauge 2 days Patient does not currently have any lines, drains or airways. Current restraint orders: None Assessment AND Plan Active Hospital Problems as of 09/10/2023 Noted - Resolved [facility] Primary hypertension 08/06/2023 - Present Yes Current Assessment AND Plan Assessment: POA PLAN: -Continue present regimen S/P lumbar fusion 08/19/2023 - Present Yes Current Assessment AND Plan Assessment: S/p L2-5 OLIF on 08/18 PLAN: -Pain control: continue present regimen -PT/OT rec [facility] -MRI today -DVT ppx: continue IPCs, heparin [...] 0122 -- 09/08/23 1400 graduated compression stockings ([place]) 09/08/23 013 (more content not included)... [facility] 09-09-2023 Note HNO ID: [id number] Author: HUI WHYTE MD Service: Neurosurgery Author [...] any questions or concerns regarding this patient [facility] 09-09-2023 Note HNO ID: [id number] Author: LISE JONES RN Service: Care Management Author Type: Registered Nurse Type: Care Mgt Progress Note Filed: 09/09/2023 13:13 Note Text: CARE MANAGEMENT PROGRESS NOTE SERVICE DATE: 09/09/2023 SERVICE TIME: 1:12 PM LOS: 1 day Needs Prior to Discharge: To Be Determined DISCHARGE PLAN Discharge plan discussed with: medical team Anticipated Discharge Plan: Home with Home Care, tasked [facility] to build home care referral. Anticipated Discharge [...] 09, 2023 TIME: 1:12 PM PAGER/CONTACT #: [phone] [facility] 09-09-2023 Note HNO ID: [id number] Author: CHRISTINE WASHINGTON PA-C Service: Hospital Medicine Author Type: Physician Emergency Technician Type: Progress Notes Filed: 09/09/2023 10:36 Note Text: DEPARTMENT OF HOSPITAL MEDICINE PROGRESS NOTE SERVICE DATE: 09/09/2023 SERVICE TIME: 8:23 AM Hospital Medicine/Primary Attending: Mamta Redding MD NIGHT AND WEEKEND COVERAGE: Please page me at [phone] from 7:30AM to 5:30PM For Overnight (5:30PM --> 07:30AM): For patients on H80/H81/G80/G81 please page [phone] For patients on Any Other Floor please page [phone] Subjective INTERVAL HPI: Swelling and pain are [...] Drains, and Airways Line Duration Peripheral 09/07/232047 [facility] Short Right Antecubital 20 Gauge 1 [...] up (patient reports he lives 5min from [facility] in [facility] and knows they have a pain center, [...] 0122 -- 09/08/23 1400 graduated compression stockings ([place], [place]) 09/08/23 0130 activity - mobilize patient ([place]) VTE Prophylaxis: VTE prophylaxis appropriate Disposition: To be determined Plan of care discussed with Provider, RN, Patient Plan communicated to: Patient prefers to communicate with family (more content not included)... [facility] 09-09-2023 Note HNO ID: [id number] Author: CHRISTINE POLK MD Service: Neurosurgery Author [...] Sagar Polk MD PGY-2, Neurological Surgery Pager: [phone] Neurosurgery On-Call: [phone] 4:40 PM 09/08/23 Page [phone] after 6pm and on weekends / holidays [place] [address]-01-2024 Note HNO ID: [id number] Author: CHRISTINE POLK MD Service: Neurosurgery Author [...] Sagar Polk MD PGY-2, Neurological Surgery Pager: [phone] Neurosurgery On-Call: 4:40 PM 09/08/23 Page [phone] after 6pm and on weekends / holidays [facility] 09-08-2023 Note HNO ID: [id number] Author: CHRISTINE WASHINGTON PA-C Service: Hospital Medicine Author Type: Physician Emergency Technician Type: Progress Notes Filed: 09/08/2023 14:01 Note Text: DEPARTMENT OF HOSPITAL MEDICINE PROGRESS NOTE SERVICE DATE: 09/08/2023 SERVICE TIME: 9:05 AM Hospital Medicine/Primary Attending: Mamta Redding MD NIGHT AND WEEKEND COVERAGE: Please page me at [phone] from 7:30AM to 5:30PM For Overnight (5:30PM --> 07:30AM): For patients on H80/H81/G80/G81 please page [phone] For patients on Any Other Floor please page [phone] Subjective INTERVAL HPI: Reports his back pain [...] Drains, and Airways Line Duration Peripheral 09/07/232047 [facility] Short Right Antecubital 20 Gauge <1 [...] Route Frequency Last Action Ordered Stop 09/08/23 013 heparin 5,000 Units injection (Medical Risk Categories) 5,000 Units SUBCUTANEOUS EVERY 12 HOURS Given, 09/07 13309/08/23 0122 -- 09/08/23 0130 activity - mobilize patient ([place]) VTE Prophylaxis: VTE prophylaxis appropriate Disposition: To be determined Plan of care discussed with Provider, RN, Patient Plan communicated to: Patient prefers to communicate with family. SIGNATURE: Christine Washington PA-C PATIENT NAME: Braden Rodriguez DATE: September 08, 2023 TIME: 2:00 PM [facility] 09-05-2023 Telephone encounter Note Script was sent on 09/03. [facility] 09-05-2023 Miscellaneous Notes Script was sent on 09/03. documented in this encounter [facility] 09-04-2023 Telephone encounter Note Pt has an order that is from PA. Arianne For Home [facility]. Marianne from [facility] called and said pt was refusing Home Health. I did as her to call the ordering PA, she wanted it noted in his chart here, as well [facility] 09-04-2023 Miscellaneous Notes Pt has an order that is from PA. Arianne For Home [facility]. Marianne from [facility] called and said pt was refusing Home Health. I did as her to call the ordering PA, she wanted it noted in his chart here, as well documented in this encounter [facility] 09-02-2023 Telephone encounter Note Patient phones requesting refills as follows: Requested Prescriptions Pending Prescriptions Disp Refills oxyCODONE IR (ROXICODONE) 5 mg immediate release tablet 42 tablet 0 Sig: Take 1 tablet by mouth every 4 hours for 7 days. Last visit: 08/29/2023 Pharmacy: [facility], #[id number] Pharmacy Current Dosage: Patient is currently taking 1 tab every 4 hrs; Has enough for several days left. Please review and advise; ph: [phone] Tara Mix [facility] 09-02-2023 Miscellaneous Notes Patient phones requesting refills as follows: Requested Prescriptions Pending Prescriptions Disp Refills oxyCODONE IR (ROXICODONE) 5 mg immediate release tablet 42 tablet 0 Sig: Take 1 tablet by mouth every 4 hours for 7 days. Last visit: 08/29/2023 Pharmacy: [facility], #[id number] Pharmacy Current Dosage: Patient is currently taking 1 tab every 4 hrs; Has enough for several days left. Please review and advise; ph: [phone] Tara Dawkins documented in this encounter [facility] 09-01-2023 Telephone encounter Note Returned call [...] review with Dr Keith and follow up. [facility] 09-01-2023 Miscellaneous Notes Returned call to [...] and follow up. documented in this encounter [facility] 08-29-2023 Telephone encounter Note Returned call to pharmacy. Advised Vikas Loyd did speak to patient regarding stopping the Sheldon and taking Oxy. Also getting his pain medication through us during this post op time period. He voiced appreciation. No further questions. [facility] 08-29-2023 Miscellaneous Notes Returned call to pharmacy. Advised Vikas Loyd did speak to patient regarding stopping the Sheldon and taking Oxy. Also getting his pain medication through us during this post op time period. He voiced appreciation. No further questions. Call received for Katherine Keith MD regarding Braden Rodriguez. Caller: Sandeep, Pharmacist [facility] Patient Identified by Name and : [...] appointment: 10/08/2023 Best number to reach caller: [phone] Best time to reach caller: any Is it OK to leave a detailed voice message? Yes Winnie Quesada documented in this encounter [facility] 08-29-2023 Telephone encounter Note Call received for Katherine Keith MD regarding Braden Rodriguez. Caller: Sandeep, Pharmacist [facility] Patient Identified by Name and : [...] appointment: 10/08/2023 Best number to reach caller: [phone] Best time to reach caller: any Is it OK to leave a detailed voice message? Yes Winnie Quesada [facility] 08-29-2023 Note HNO ID: [id number] Author: ALFONSO LOYD PA-C Service: ? Author Type: Physician Emergency Technician Type: Progress Notes Filed: 08/29/2023 08:50 Note Text: SPINE SURGERY FOLLOW UP This is a virtual visit using [employer] Zoom Video Visit. It required patient-provider interaction for the medical decision making as documented below. I have communicated my name and active licensure. The patient's identity and physical location were verified at the time of this visit. Either the patient or their legal student services representative has been informed of the risks [...] operative pain is now more tolerable. Using Sheldon from his PCP which is not as [...] His PCP filled his lat prescription for Sheldon which is not providing relief. We discussed [...] August 29, 2023 TIME: 8:20 AM PAGER: [facility] 08-29-2023 History of Present illness Narrative SPINE SURGERY FOLLOW UP This is a virtual visit using [employer] Video Visit. It required patient-provider interaction for the medical decision making as documented below. I have communicated my name and active licensure. The patient's identity and physical location were verified at the time of this visit. Either the patient or their legal student services representative has been informed of the risks [...] operative pain is now more tolerable. Using Sheldon from his PCP which is not as [...] His PCP filled his lat prescription for Sheldon which is not providing relief. We discussed [...] 8:20 AM PAGER: documented in this encounter [facility] 08-22-2023 Note HNO ID: [id number] Author: JUSTIN BEE CPhT Service: Pharmacy Author Type: Medical Insurance Coder Type: Plan of Care Filed: 08/22/2023 12:33 Note Text: PHARMACY BEDSIDE DELIVERY SERVICE Patient Name: Braden Rodriguez The marked outpatient medications were Filled at: [facility] and delivered to the [...] known as: [employer]ANA[employer] Justin Bee CPhT PAGER: [phone] August 22, 2023 12:32 PM [facility] 08-21-2023 Note HNO ID: [id number] Author: SAE HOSKINS ? Service: Pharmacy Author Type: Medical Insurance Coder Type: Plan of Care Filed: 08/21/2023 16:02 Note Text: Insurance investigation completed Patient has active prescription insurance: Yes - Patient's insurance is in-network with [facility] Insurance loaded into [place]: Yes Test claim was completed to verify insurance is active: Successful Any questions, please contact your medication employee benefits coordinator. Pager #: [phone] [facility] 08-21-2023 Note HNO ID: [id number] Author: CHILANGO COTTO PA-C Service: Neurosurgery Author Type: Physician Emergency Technician Type: Progress Notes Filed: 08/21/2023 10:31 Note Text: SERVICE DATE: 08/21/2023 SERVICE TIME: 10:30 AM SPINE SURGERY TEAM PROGRESS NOTE After 6 PM (1800) please page Haley Floyd PA-C [phone], backup pager [phone]. Attending: Katherine Hogue MD Location: H060 027/H060-27 [...] BICEPS TRICEPS DELTS Wrist Ext [facility] Pharmacist HI R 5/5 5/5 5/5 5/5 5/5 [...] and Airways Line Duration Peripheral 08/19/23 0906 [facility] Short Right Forearm 20 Gauge 2 days Peripheral 08/19/23 1150 [facility] Short Left Forearm 16 Gauge 1 [...] heparin 5,000 Un (more content not included)... [facility] 08-20-2023 Note HNO ID: [id number] Author: NEREIDA MARQUES RT(R) Service: Radiology Author Type: Customer Support Technician Type: Progress Notes Filed: 08/20/2023 22:24 Note [...] PATIENT PRESENTS WITH AN IMPLANTABLE OR ATTACHED ORDER MANAGEMENT SPECIALIST: No RADIOLOGY DEPARTMENT: MR; Exam(s) Completed: Spine: Lumbar spine PERIPHERAL IV DATA: Not applicable SIGNED BY: RT Indra(R) August 20, 2023 10:23 PM [facility] 08-20-2023 Note HNO ID: [id number] Author: CHILANGO COTTO PA-C Service: Neurosurgery Author Type: Physician Emergency Technician Type: Progress Notes Filed: 08/20/2023 11:04 Note Text: SERVICE DATE: 08/20/2023 SERVICE TIME: 11:04 AM SPINE SURGERY TEAM PROGRESS NOTE After 6 PM (1800) please page Haley Floyd PA-C [phone] or Oly Rowe PA-C [phone], backup pager [phone]. Attending: Katherine Hogue MD Location: H060 027/H060-27 [...] mL/min (based on SCr of 0.86 mg/dL). 08/19/237 08/20/23 0139 08/20/23 0513 08/20/23 0945 BP: 146/71 [...] BICEPS TRICEPS DELTS Wrist Ext [facility] Pharmacist HI R 5/5 5/5 5/5 5/5 5/5 [...] and Airways Line Duration Peripheral 08/19/23 0906 [facility] Short Right Forearm 20 Gauge 1 day Peripheral 08/19/23 1150 [facility] Short Left Forearm 16 Gauge <1 [...] foot drop Medi (more content not included)... [facility] 08-20-2023 Note HNO ID: [id number] Author: STEPAN ROSALES RT(Michael) Service: Radiology Author Type: Technologist Type: [...] PATIENT PRESENTS WITH AN IMPLANTABLE OR ATTACHED ORDER MANAGEMENT SPECIALIST: No RADIOLOGY DEPARTMENT: CT; Exam(s) Completed: Spine PERIPHERAL IV DATA: Not applicable SIGNED BY: RT Tucker(Michael) August 20, 2023 9:35 AM [facility] 08-20-2023 Note HNO ID: [id number] Author: SCHUYLER GOFF MD Service: Neurosurgery Author [...] 150/68 Pulse: 79 [phone] 76 Resp: 16 18 18 18 Temp: 36.8 ?C (98.2 ?F) 37.4 ?C [...] Flexion Arm Extension Wrist Ext [facility] Pharmacist HI R 5 5 5 5 5 [...] and Airways Line Duration Peripheral 08/19/23 0906 [facility] Short Right Forearm 20 Gauge <1 day Peripheral 08/19/23 1150 [facility] Short Left Forearm 16 Gauge <1 [...] Patient. Schuyler Goff MD PGY-1 Orthopaedic Surgery [facility] C: [phone] - Docin message me for any questions or concerns [facility] 08-19-2023 Note HNO ID: [id number] Author: SCHUYLER GOFF MD Service: Neurosurgery Author [...] Flexion Arm Extension Wrist Ext [facility] Pharmacist HI R 5 5 5 5 5 [...] Goff MD Orthopaedic Surgery PGY-1 For [facility] floor related issues [place] [phone] If unable to reach the PA team between 6 am and 5 pm, please page me at [phone] At all other times, or if urgent, please page the orthopaedic on-call resident at: [phone] for [facility] patients [address] for [facility] patients [address] for [facility] patients [address] for [facility] patients [address] for [facility] patients [facility] 08-19-2023 Note HNO ID: [id number] Author: AGATA MCLEOD MD Service: ? 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 Staffing Anesthesiologist: [...] August 19, 2023 TIME: 12:30 PM CSN: [id number] [facility] 08-19-2023 Note HNO ID: [id number] Author: SCHUYLER GOFF MD Service: Neurosurgery Author [...] BICEPS TRICEPS DELTS Wrist Ext [facility] Pharmacist HI R 5 5 5 5 5 [...] Goff MD Orthopaedic Surgery PGY-1 [facility] floor related issues [place], [place] [phone] If unable to reach the PA team between 6 am and 5 pm, please page me at [phone] At all other times, or if urgent, please page the orthopaedic on-call resident at: [phone] for [facility] patients [address] for [facility] patients [address] for [facility] patients [address] for [facility] patients [address] for [facility] patients [facility] 08-11-2023 Telephone encounter Note CM was able to leave a brief detailed message on identifed vm requesting call back to discuss post op care. CM provided contact information. [facility] 08-11-2023 Miscellaneous Notes CM was able to leave a brief detailed message on identifed vm requesting call back to discuss post op care. CM provided contact information. documented in this encounter [facility] 08-10-2023 Note HNO ID: [id number] Author: SHARIF VERAS RN Service: ? Author Type: Registered Nurse Type: Progress Notes Filed: 08/10/2023 10:56 Note Text: Patient referred to Blood Management for pre-surgical optimization. Hgb 15.1 which exceeds Blood Management guidelines for intervention. [facility] 08-10-2023 History of Present illness Narrative Patient referred to Blood Management for pre-surgical optimization. Hgb 15.1 which exceeds Blood Management guidelines for intervention. documented in this encounter [facility] 08-06-2023 History and physical note HISTORY [...] over the last year. Relieving factors include Sheldon and steroids. Aggravating factors include repetitive movement. [...] fevers. 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 No neurological symptoms or problems. Respiratory: No history of current cough or dyspnea, or pneumonia in the past 6 weeks. No history of respiratory/pulmonary symptoms or problems. Cardiovascular:+htn, SVT Negative for Recent NE, Angina, CAD, Chest Pain GI: No history [...] Specific Question: Does consulting provider have [facility] access? Answer: Yes Type and Screen, 30 [...] Braden Rodriguez DATE: 08/06/2023 TIME: 10:18 AM [facility] 08-06-2023 History and physical note HISTORY [...] over the last year. Relieving factors include Sheldon and steroids. Aggravating factors include repetitive movement. [...] fevers. 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 No neurological symptoms or problems. Respiratory: No history of current cough or dyspnea, or pneumonia in the past 6 weeks. No history of respiratory/pulmonary symptoms or problems. Cardiovascular:+htn, SVT Negative for Recent NE, Angina, CAD, Chest Pain GI: No history [...] No results found for: HBA1C All in [facility] Most recent EK08/06/2023 preliminary Sinus bradycardia Possible [...] TIME: 10:18 AM documented in this encounter [facility] 08-01-2023 Telephone encounter Note Duplicate, patient already spoke to RN (see phone encounter). [facility] 08-01-2023 Miscellaneous Notes Duplicate, patient already spoke to RN (see phone encounter). documented in this encounter [facility] 08-01-2023 Telephone encounter Note Patient accepts sooner date of 08/18 New education class on 08/11 at 2 PM Will change post ops He voiced appreciation. No further questions. [facility] 08-01-2023 Miscellaneous Notes Patient accepts sooner date of 08/18 New education class on 08/11 at 2 PM Will change post ops He voiced appreciation. No further questions. Patient is returning nurse call pertaining to below message, sooner appt call back [phone] Called patient to offer sooner surgery date Left message to return call to the office documented in this encounter [facility] 08-01-2023 Telephone encounter Note Patient is returning nurse call pertaining to below message, sooner appt call back [phone] [facility] 08-01-2023 Instructions Sanam Gill PA-C - 08/01/2023 9:35 AM EDT PATIENT PREOPERATIVE INSTRUCTIONS Katherine Keith MD has scheduled you for your procedure at this surgery center: [facility] [place] Scheduling Office: [phone] [address] [place] [address]. Please read below carefully for your personalized instructions. Arrival Time for Surgery: - To obtain your arrival time for surgery, call your physician's office the day before your surgery. - If your surgery is scheduled for Friday, call the Friday before. Your surgeon s energy scheduler will tell you what time to call the office. - If you have not reached the departmental energy scheduler by 5 P.M., call [phone] after 5 P.M. the day before your [...] Advance Directive, please fax a copy to [phone] or email to for it to be [...] Sanam Gill PA-C documented in this encounter [facility] 08-01-2023 Telephone encounter Note Called patient to offer sooner surgery date Left message to return call to the office [facility] 07-14-2023 Telephone encounter Note Received, Reviewed Jamey Disability Attending Physician Statement [employer] forms and need signed by Dr. Keith Sent to Dr. Keith via Doc2can for signature Leave dates: 09/02/23-11/07/23 No Post op appt scheduled as of yet. Alyssa Maldonado LPN [facility] 07-14-2023 Miscellaneous Notes Received, Reviewed Jamey Disability Attending Physician Statement [employer] forms and need signed by Dr. Keith Sent to Dr. Keith via Gl[employer]Box for signature Leave dates: 09/02/23-11/07/23 No Post op appt scheduled as of yet. Alyssa Maldonado LPN documented in this encounter [facility] 06-12-2023 Miscellaneous Notes Neuro SPINE CARE COORDINATION QUICK NOTE Called patient to discuss disability paperwork. His PCP has completed his previous STD paperwork Patient is not scheduled for surgery until August. Discussed this office will be able to complete his disability paperwork postop Advised to reach out to his PCP to continue with disability until surgery. Patient states [employer] needs office note. This office will fax over the office note from 04/30 No further questions. I received [employer] forms for LTD. I called patient to explain we don't complete LTD, but he stated that he is not currently working and have exhausted his STD. He states the form is due 06/12/23. Sending to CC. Oliver to review Received Attending Physician's Statement from [employer]. Sent via [employer] for processing. documented in this encounter [facility] 05-29-2023 Miscellaneous Notes Neuro SPINE CARE [...] Dr. Katherine Keith:04/30 Please schedule PAT for [place] the week of 08/04. Please schedule pre op consent with Dr Keith: n/a Please schedule pre op RN education phone call: 08/27 at 10 AM Nurse ROBERTO Please schedule 2 week post op Vikas [...] N/A TREK/ N/A documented in this encounter [facility] 05-13-2023 Note HNO ID: [id number] Author: KARAN FERNANDO MD Service: ? Author [...] Blanca Cain, EMG Tech Karan Fernando MD [facility] 05-04-2023 History of Present illness Narrative Radiology Service Progress Note PATIENT [...] PATIENT PRESENTS WITH AN IMPLANTABLE OR ATTACHED ORDER MANAGEMENT SPECIALIST: No RADIOLOGY DEPARTMENT: CT; Exam(s) Completed: Spine PERIPHERAL IV DATA: Not applicable SIGNED BY: RT Eliseo(R) May 04, 2023 8:09 AM documented in this encounter [facility] 05-04-2023 Note HNO ID: [id number] Author: BLANCA PRICE RT(Michael) Service: Radiology Author Type: Technologist Type: [...] PATIENT PRESENTS WITH AN IMPLANTABLE OR ATTACHED ORDER MANAGEMENT SPECIALIST: No RADIOLOGY DEPARTMENT: CT; Exam(s) Completed: Spine PERIPHERAL IV DATA: Not applicable SIGNED BY: RT Eliseo(R) May 04, 2023 8:09 AM [facility] 04-30-2023 History of Present illness Narrative Radiology Service Progress Note PATIENT [...] PATIENT PRESENTS WITH AN IMPLANTABLE OR ATTACHED ORDER MANAGEMENT SPECIALIST: No RADIOLOGY DEPARTMENT: General X-ray: Exam(s) Completed: Spine X-Ray(s): Scoliosis Series PERIPHERAL IV DATA: Not applicable SIGNED BY: RT Jimbo(Michael) April 30, 2023 1:42 PM documented in this encounter [facility] 04-30-2023 Note HNO ID: [id number] Author: CHERYL MENCHACA RT(Michael) Service: Radiology Author [...] PATIENT PRESENTS WITH AN IMPLANTABLE OR ATTACHED ORDER MANAGEMENT SPECIALIST: No RADIOLOGY DEPARTMENT: General X-ray: Exam(s) Completed: Spine X-Ray(s): Scoliosis Series PERIPHERAL IV DATA: Not applicable SIGNED BY: RT Jimbo(Michael) April 30, 2023 1:42 PM [facility] 04-30-2023 Note HNO ID: [id number] Author: KATHERINE KEITH MD Service: ? Author [...] Ester Cain MD REFERRING PROVIDER: Tello Gaspar [address] [facility] [address] Consult requested for an opinion regarding the [...] a revision at (more content not included)... [facility] 04-30-2023 History of Present illness Narrative Images from the original note [...] Ester Cain MD REFERRING PROVIDER: Tello Gaspar [address] [facility] [address] Consult requested for an opinion regarding the [...] Pain Level: 5 Pain Location: Leg-Left Description: Aching;Burning;Cramping;Dull;Numbn ess;Pulsating;Sharp;Shooting;Stabb ing;Throbbing;Tingling Duration Amount of Time: 2 Duration Units: [...] 11:51 AM PAGER: documented in this encounter [facility] 04-30-2023 History of Present illness Narrative Radiology Service Progress Note PATIENT [...] PATIENT PRESENTS WITH AN IMPLANTABLE OR ATTACHED ORDER MANAGEMENT SPECIALIST: No RADIOLOGY DEPARTMENT: General X-ray: Exam(s) Completed: Spine X-Ray(s): Lumbar AP / LAT / L5-S1 / FLEX-EXT PERIPHERAL IV DATA: Not applicable SIGNED BY: RT Li (R) April 30, 2023 10:47 AM documented in this encounter [facility] 04-30-2023 Note HNO ID: [id number] Author: RIN MAYBERRY RT (R) Service: Radiology Author Type: Technologist [...] PATIENT PRESENTS WITH AN IMPLANTABLE OR ATTACHED ORDER MANAGEMENT SPECIALIST: No RADIOLOGY DEPARTMENT: General X-ray: Exam(s) Completed: Spine X-Ray(s): Lumbar AP / LAT / L5-S1 / FLEX-EXT PERIPHERAL IV DATA: Not applicable SIGNED BY: RT Guillermo(R) April 30, 2023 10:47 AM [facility] 03-21-2023 Note HNO ID: [id number] Author: ALFONSO LOYD PA-C Service: ? Author Type: Physician Emergency Technician Type: Progress Notes Filed: 03/21/2023 05:56 Note Text: Requesting to see Dr. Keith Left leg pain, trouble walking, numbness in the leg, weakness. He has tried: PT, NSAID, steroids, MR, Tramadol Previous surgery x 3 at [facility] Lumbar MRI report with severe central stenosis of L3-4 and L4-5. XR ordered for an appointment with Dr. Keith. [facility] 03-21-2023 History of Present illness Narrative Requesting to see Dr. Keith Left leg pain, trouble walking, numbness in the leg, weakness. He has tried: PT, NSAID, steroids, MR, Tramadol Previous surgery x 3 at [facility] Lumbar MRI report with severe central stenosis of L3-4 and L4-5. XR ordered for an appointment with Dr. Keith. Patient name: Braden Rodriguez Are you being referred by a Center for Spine Health Provider or Pain Management Provider at [facility]? No If answer is YES [...] where the MRI/CT/myelogram was completed: MRI [facility] [address] [place] [address] MRI/CT/myelogram viewable in Epic: No If not, please provide [phone] to fax in imaging reports for review. Also, please inform patient to hand carry imaging disc to appointment. XR (spine) within 12 months: Yes If YES, please ask for the name/address of the facility where the XR was completed: Dr. Tello Gaspar MD [address], [place] [address] Dr. Davis's patients: Have you had previous [...] Starting PT 03/20/2023 for drop foot [facility] [address] [place] [address] Have you tried any other kinds of [...] where the surgery was completed: 1999 laminectomy [facility] 2012 lumbar surgery [facility] 2019 lumbar surgery [facility] Additional Comments [phone] documented in this encounter [facility] 03-19-2023 Note HNO ID: [id number] Author: ?, ?, ? Service: ? Author Type: ? Type: Progress Notes Filed: 03/21/2023 05:56 Note Text: Patient name: Braden Rodriguez Are you being referred by a Center for Spine Health Provider or Pain Management Provider at [facility]? No If answer is YES [...] facility where the MRI/CT/myelogram was completed: [facility] [address] [place] [address] MRI/CT/myelogram viewable in Epic: No If not, please provide [phone] to fax in imaging reports for review. Also, please inform patient to hand carry imaging disc to appointment. XR (spine) within 12 months: Yes If YES,? please ask for the name/address of the facility where the XR was completed: Dr. Tello Gaspar MD [address], [place] [address] Dr. Davis's patients: Have you had previous [...] completed Starting PT 03/20/2023 for drop foot [facility] [address] [id number] Have you tried any other kinds of [...] where the surgery was completed: 1999 laminectomy [facility] 2012 lumbar surgery [facility] 2019 lumbar surgery [facility] Additional Comments [phone] [facility] 12-05-2022 Hospital Discharge instructions Patient Education [...] treatment? Where to find more information The [employer]: www.cancer.org English U[employer] Association: www.auanet.org Contact a health care [...] provider. Document Revised: 08/20/2021 Document Reviewed: 08/20/2021 [employer] Patient Education 2022 [employer]. Follow Up Care 11/27/2022 14:43:00 With:Kahlil JERNIGAN, MARLENA Salmon, URO Address: When: Unknown [facility] [place] 10-30-2022 Hospital Discharge instructions Patient Education 10/30/2022 [...] treatment? Where to find more information The [employer]: www.cancer.org English U[employer] Association: www.auanet.org Contact a health care [...] provider. Document Revised: 08/20/2021 Document Reviewed: 08/20/2021 [employer] Patient Education 2022 [employer]. Follow Up Care 09/04/2022 08:48:35 With:Kahlil JERNIGAN, MARLENA Salmon, URO Address: When:Within 2 Month(s) Comments:w/NINA [facility] [place] 09-04-2022 Hospital Discharge instructions Patient Education 09/04/2022 [...] treatment? Where to find more information The [employer]: www.cancer.org English U[employer] Association: www.auanet.org Contact a health care [...] provider. Document Revised: 08/20/2021 Document Reviewed: 08/20/2021 [employer] Patient Education 2022 [employer]. Follow Up Care 08/26/2022 10:02:45 With:Shae Guillory MD, MARLENA, URO Address: When:Within 4 Week(s) Comments:w/ PSA [facility] [place] 05-07-2022 Hospital Discharge instructions Follow Up Care 05/07/2022 15:08:01 With:Camryn AGUSTIN MD, SUR Address: [address] [place] [address]- When: only if needed General Surgery WebEvents Evaluation + Plan note No data available for this section General Surgery Javed Evaluation + Plan note Future Appointments Appointment Date:05/21/2022 02:40:00 PM Scheduled Provider:Camryn AGUSTIN MD Location:[facility] Appointment Type:GS Post Op 15 General Surgery Javed Evaluation + Plan note Future Appointments Appointment Date:09/24/2022 01:40:00 PM Scheduled Provider:[facility] Type:GS Established 15 Appointment Date:09/25/2022 08:45:00 AM Scheduled Provider:Shae Guillory MD Location:[facility] Appointment Type:URO Office Visit Diagnostic Tests PendingPSA Total 09/04/22PSA Free & Total 09/04/22 [facility] Plan note Future Appointments Appointment Date:01/08/2023 09:00:00 AM Scheduled Provider:Shae Guillory MD Location:[facility] Appointment Type:URO Office Visit Diagnostic Tests PendingPSA Free & Total 10/30/22 [facility] Evaluation + Plan note Future Appointments Appointment Date:04/23/2023 09:45:00 AM Scheduled Provider:Shae Guillory MD Location:[facility] Appointment Type:URO Office Visit Diagnostic Tests PendingPSA Free & Total 12/05/22 [facility] [place] Evaluation note No assessment inform ation available [facility] Work Phone: Evaluation note Diagnosis Spinal [...] Preoperative examination, unspecified [facility] Diagnosis Pre-op exam- Primary Preoperative examination, unspecified Primary hypertension Unspecified essential hypertension SVT (supraventricular tachycardia) (HCC) Other specified cardiac dysrhythmias History of penicillin allergy Personal history of allergy to penicillin History of laminectomy Other postprocedural status Degenerative scoliosis in adult patient Pre-op testing Preoperative examination, unspecified documented in this [facility] Diagnosis Acute post-operative pain documented in this [facility]* Diagnosis Acute post-operative pain documented in this encounter [facility] note* Diagnosis Acute post-operative pain documented in this [facility]* Diagnosis S/P lumbar fusion- Primary Arthrodesis status [facility] Diagnosis S/P lumbar spinal fusion- Primary Arthrodesis status Pre-op testing Preoperative examination, unspecified S/P lumbar spinal fusion Arthrodesis status documented in this encounter [facility] note* Diagnosis S/P lumbar fusion Arthrodesis status S/P lumbar spinal fusion Arthrodesis status [facility] Diagnosis S/P lumbar spinal fusion- Primary Arthrodesis status S/P lumbar spinal fusion Arthrodesis status documented [facility] this [facility] Diagnosis Post-op pain- Primary Other acute postoperative pain [facility] Diagnosis Post-op pain Other acute postoperative pain documented in this [facility] Diagnosis Right leg weakness- Primary Other musculoskeletal symptoms referable to limbs S/P lumbar fusion Arthrodesis status [facility] Diagnosis Post-op pain Other acute postoperative pain [facility] Diagnosis Acute post-operative pain SVT (supraventricular tachycardia) (HCC) Other specified cardiac dysrhythmias Acute post-operative pain Scoliosis of lumbar region due to degenerative disease of spine in adult Intractable pain- Primary Other chronic pain Pain and swelling of lower extremity, unspecified laterality Foot drop, right foot S/P lumbar fusion Arthrodesis status Primary hypertension Unspecified essential hypertension Acute post-operative pain Localized swelling of lower extremity 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 without myelopathy S/P lumbar fusion Arthrodesis status Edema of both lower extremities Localized swelling of lower extremity Pain and swelling of lower extremity Low back pain- Primary Lumbago Acute post-operative pain Primary hypertension Unspecified essential hypertension Post-op pain Other acute postoperative pain [facility] Diagnosis Acute post-operative pain SVT (supraventricular tachycardia) (HCC) Other specified cardiac dysrhythmias Acute post-operative pain Scoliosis of lumbar region due to degenerative disease of spine in adult Intractable pain- Primary Other chronic pain Pain and swelling of lower extremity, unspecified laterality Foot drop, right foot S/P lumbar fusion Arthrodesis status Primary hypertension Unspecified essential hypertension Acute post-operative pain Localized swelling of lower extremity 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 without myelopathy S/P lumbar fusion Arthrodesis status Edema of both lower extremities Localized swelling of lower extremity Pain and swelling of lower extremity Low back pain- Primary Lumbago Acute post-operative pain Primary hypertension Unspecified essential hypertension Post-op pain Other acute postoperative pain [facility] Diagnosis Acute post-operative pain SVT (supraventricular tachycardia) (HCC) Other specified cardiac dysrhythmias Acute post-operative pain Scoliosis of lumbar region due to degenerative disease of spine in adult Intractable pain- Primary Other chronic pain Pain and swelling of lower extremity, unspecified laterality Foot drop, right foot S/P lumbar fusion Arthrodesis status Primary hypertension Unspecified essential hypertension Acute post-operative pain Localized swelling of lower extremity 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 without myelopathy S/P lumbar fusion Arthrodesis status Edema of both lower extremities Localized swelling of lower extremity Pain and swelling of lower extremity Low back pain- Primary Lumbago Acute post-operative pain Primary hypertension Unspecified essential hypertension History of laminectomy Other postprocedural status Degenerative scoliosis in adult patient [facility] Diagnosis Acute post-operative pain SVT (supraventricular tachycardia) (HCC) Other specified cardiac dysrhythmias Acute post-operative pain Scoliosis of lumbar region due to degenerative disease of spine in adult Intractable pain- Primary Other chronic pain Pain and swelling of lower extremity, unspecified laterality Foot drop, right foot S/P lumbar fusion Arthrodesis status Primary hypertension Unspecified essential hypertension Acute post-operative pain Localized swelling of lower extremity 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 without myelopathy S/P lumbar fusion Arthrodesis status Edema of both lower extremities Localized swelling of lower extremity Pain and swelling of lower extremity Low back pain- Primary Lumbago Acute post-operative pain Primary hypertension Unspecified essential hypertension Adverse effect of treatment, sequela- Primary Acute low back pain, unspecified back pain laterality, unspecified whether sciatica present documented in this encounter [facility] Discharge instructions No data available for this section [facility] [place] Progress note No data available for this section [facility] [place] Reason for referral (narrative)* Diagnostic Procedure Only (Routine) - Pending Review Specialty Diagnoses / Procedures Referred By Contac t Referred To Contact XR IMAGING Diagnoses Spinal stenosis, lumbar region with neurogenic claudication Procedures XR LUMBAR MOTION 4V AP/LAT/ FLEX/EXT RADEX SPINE LUMBOSACRAL MINIMUM 4 VIEWS Alfonso Loyd PA-C [address] [id number] Xr Imaging [facility] Referral ID Status Reason Start Date Expiration Date Visits Requested Visits Authorized [id number] Pending Review Auto-Generat ed Referral 03/21/2023 04/19/2024 1 1 [facility] for referral (narrative)* Diagnostic Procedure Only (Routine) [...] SAC SPI W/SKULL 2/3 Katherine Keith MD [address] [place] [address] X[facility] [place] [address] Referral ID Status Reason Start Date Expiration Date V isits Requested Visits Authorized [id number] Closed Auto-Generate d Referral 04/30/2023 05/29/2024 1 1 [facility] for referral (narrative)* Diagnostic Procedure Only (Routine) - Closed Specialty Diagnoses / Procedures Referred By Contac t Referred To Contact XR IMAGING Diagnoses Spinal stenosis, lumbar region with neurogenic claudication Procedures XR LUMBAR MOTION 4V AP/LAT/ FLEX/EXT RADEX SPINE LUMBOSACRAL MINIMUM 4 VIEWS Alfonso Loyd PA-C [address] [place] [address] [place] [address] Referral ID Status Reason Start Date Expiration Date V isits Requested Visits Authorized [id number] Closed Auto-Generate d Referral 03/21/2023 04/19/2024 1 1 [facility] for referral (narrative)* Outpatient Procedure (Routine) - Pending Review Specialty Diagnoses / Procedures Referred By Contac t Referred To Contact [facility] Diagnoses Pre-op exam Procedures ECG COMPLETE ECG ROUTINE ECG W/LEAST 12 LDS W/I&R Sanam Gill PA-C [address] [place] [address] [facility] [place] [address] [place] [address] Referral ID Status Reason Start Date Expiration Date Visits Requested Visits Authorized [id number] Pending Review Auto-Generat ed Referral 08/06/2023 08/05/2024 1 1 [facility] for referral (narrative)* Diagnostic Procedure Only (Routine) - Closed Specialty Diagnoses / Procedures Referred By Contac t Referred To Contact XR IMAGING Diagnoses History of laminectomy Degenerative scoliosis in adult patient Procedures XR LUMBAR LIMITED 2V AP/LAT RADEX SPINE LUMBOSACRAL 2/3 VIEWS Alfonso Loyd PA-C [address] [place] [address] [place] [address] Referral ID Status Reason Start Date Expiration Date V isits Requested Visits Authorized [id number] Closed Auto-Generate d Referral 07/11/2023 08/09/2024 1 1 [facility] for referral (narrative)* Outpatient Procedure (Routine) - Pending Review Specialty Diagnoses / Procedures Referred By Contac t Referred To Contact [facility] Diagnoses Adverse effect of treatment, sequela Procedures EMG(NEURO/NI) NERVE CONDUCTION STUDIES 9-10 STUDIES Katherine Keith MD [address] [place] [address] [facility] [place] [address] [place] [address] Referral ID Status Reason Start Date Expiration Date Visits Requested Visits Authorized [id number] Pending Review Auto-Generat ed Referral 11/12/2023 11/11/2024 1 1 * MRI/CT (Routine) - Authorized Specialty Diagnoses / Procedures Referred By Contac t Referred To Contact CT IMAGING Diagnoses Acute low back pain, unspecified back pain laterality, unspecified whether sciatica present Procedures CT LUMBAR SPINE WO IVCON CT LUMBAR SPINE W/O CONTRAST MATERIAL Katherine Keith MD [address] [place] [address] Ct [facility] [place] [address] Referral ID Status Reason Start Date Expiration Date Visits Requested Visits Authorized [id number] Authorized Auto-Generat ed Referral 11/12/2023 12/11/2024 1 1 * MRI/CT (Routine) - Authorized Specialty Diagnoses / Procedures Referred By Contac t Referred To Contact MR IMAGING Diagnoses Adverse effect of treatment, sequela Procedures MRI LUMBAR SPINE WO IVCON MRI SPINAL CANAL LUMBAR W/O CONTRAST MATERIAL Katherine Keith MD [address] [place] [address] Mr Imaging [id number] Referral ID Status Reason Start Date Expiration Date Visits Requested Visits Authorized [id number] Authorized Auto-Generat ed Referral 11/12/2023 12/11/2024 1 1 * MRI/CT (Routine) - Authorized Specialty Diagnoses / Procedures Referred By Lencho t Referred To Contact MR IMAGING Diagnoses Adverse effect of treatment, sequela Procedures MRI THORACIC SPINE WO IVCON MRI SPINAL CANAL THORACIC W/O CONTRAST Katherine Solomon MD [address] [place] [address] [place] [address] Referral ID Status Reason Start Date Expiration Date Visits Requested Visits Authorized [id number] Authorized Auto-Generat ed Referral 11/12/2023 12/11/2024 1 1 [facility] Summary Purpose Family History No Family History Records FoundNo Family History Records FoundNo Family History Records FoundNo Family History Records Found No data available for this section No Family History Records Found No data available for this section No Family History Records FoundNo Family History Records FoundNo Family History Records Found Advance Directives No Advanced Directives Records Found Date Activated Date Inactivated Comments 09/08/2023 1:22 AM 09/10/2023 7:51 PM Question Answer Comments Full Code Order Discussed With: Patient Advance Directive Response Recorded Date/ Time Advance Directives No October 01 3:21pm Date Activated Date Inactivated Comments 09/08/2023 1:22 AM Date Activated Date Inactivated Comments 09/08/2023 1:22 AM 09/10/2023 7:51 PM Question Answer Comments Full Code Order Discussed With: Patient Chief Complaint and Reason for Visit Chief Complaint r97.20 Chief Complaint Unknown Reason for Referral Specialty Diagnoses / Procedures Referred By Lencho t Referred To Contact [facility] Diagnoses Right leg weakness S/P lumbar fusion Procedures CONSULT TO PHYSICAL THERAPY PHYSICAL THERAPY EVALUATION HIGH COMPLEX 45 MINS Alfonso Loyd PA-C [address] [place] [address] [facility] [place] [address] [place] [address] Referral ID Status Reason Start Date Expiration Date Visits Requested Visits Authorized [id number] Pending Review Auto-Generat ed Referral 10/21/2023 10/20/2024 1 1 Specialty Diagnoses / Procedures Referred By Contac t Referred To Contact Diagnoses History of laminectomy Degenerative scoliosis in adult patient Pre-op testing Procedures REFER TO PACC - PRE ANESTHESIA CONSULTATION CLINIC OFFICE/OUTPATIENT [facility] 60 MINUTES Alfonso Loyd PA-C [address] [place] [address] Referral ID Status Reason Start Date Expiration Date Visits Requested Visits Authorized [id number] Authorized PCP Requested Referral 07/11/2023 07/10/2024 1 1 Specialty Diagnoses / Procedures Referred By Contac t Referred To Contact XR IMAGING Diagnoses History of laminectomy Degenerative scoliosis in adult patient Procedures XR LUMBAR LIMITED 2V AP/LAT RADEX SPINE LUMBOSACRAL 2/3 VIEWS Alfonso Loyd PA-C [address] [place] [phone] Xr [facility] [place] [address] Referral ID Status Reason Start Date Expiration Date Visits Requested Visits Authorized [id number] Pending Review Auto-Generat ed Referral 07/11/2023 08/09/2024 1 1 Specialty Diagnoses / Procedures Referred By Contac t Referred To Contact [facility] Diagnoses History of lumbar laminectomy for spinal cord decompression Degenerative scoliosis in adult patient Chronic low back pain, unspecified back pain laterality, unspecified whether sciatica present Procedures EMG(NEURO/NI) NERVE CONDUCTION STUDIES 9-10 STUDIES Katherine Keith MD [address] [place] [phone] [facility] [place] [address] [place] [address] Referral ID Status Reason Start Date Expiration Date Visits Requested Visits Authorized [id number] Authorized Auto-Generat ed Referral 05/06/2023 03/09/2024 1 1 Specialty Diagnoses / Procedures Referred By Contac t Referred To Contact CT IMAGING Diagnoses Chronic low back pain, unspecified back pain laterality, unspecified whether sciatica present Procedures CT LUMBAR SPINE WO IVCON CT LUMBAR SPINE W/O CONTRAST MATERIAL Katherine Keith MD [address] [place] [phone] [facility] [place] [address] Referral ID Status Reason Start Date Expiration Date V isits Requested Visits Authorized [id number] Closed Auto-Generate d Referral 04/30/2023 05/29/2024 1 [...] SPI W/SKULL 2/3 VW Katherine Keith MD [address] [place] [address] [place] [facility] Referral ID Status Reason Start Date Expiration Date V isits Requested Visits Authorized [id number] Closed Auto-Generate d Referral 04/30/2023 05/29/2024 1 1 Specialty Diagnoses / Procedures Referred By Contac t Referred To Contact CT IMAGING Diagnoses Chronic low back pain, unspecified back pain laterality, unspecified whether sciatica present Procedures CT LUMBAR SPINE WO IVCON CT LUMBAR SPINE W/O CONTRAST MATERIAL Katherine Keith MD [address] [place] [address] Ct [facility] [place] [address] Referral ID Status Reason Start Date Expiration Date V isits Requested Visits Authorized [id number] Closed Auto-Generate d Referral 04/30/2023 05/29/2024 1 1 Additional Source Comments (unrecognized sect ion and content) No Status Records FoundNo Status Records FoundNo Status Records FoundNo Status Records FoundNo Status Records FoundNo Status Records FoundNo Status Records FoundNo Status Records Found INFORMATION SOURCE (unrecogn ized section and content) DATE CREATED AUTHOR 05/16/2020 [facility] DATE CREATED AUTHOR AUTHOR'S ORGANIZ ATION 09/06/2020 [facility] DATE CREATED AUTHOR AUTHOR'S ORGANIZ ATION 05/18/2022 [facility] DATE CREATED AUTHOR AUTHOR'S ORGANIZ ATION 06/13/[address] [facility] DATE CREATED AUTHOR AUTHOR'S ORGANIZ ATION 08/18/2023 [facility] DATE CREATED AUTHOR AUTHOR'S ORGANIZ ATION 12/04/2023 [facility] DATE CREATED AUTHOR AUTHOR'S ORGANIZ ATION 12/05/2023 [facility] DATE CREATED AUTHOR AUTHOR'S ORGANIZ ATION 12/06/2023 [facility] Patient Care team informatio n (unrecognized section and content) Team Status: Active Member Role Status Dates Ester Cain MD Primary Care Provider Active Team Status: Inactive Member Role Status Dates Ester aCin MD Primary Care Provider Active Shae Guillory MD Attending Provider Active Software Technician Relationship Specialty Start Date End Date Ester Cain MD PCP - General 05/05/06 Software Technician Relationship Specialty Start Date End Date Ester Cain MD PCP - General 05/05/06 Software Technician Relationship Specialty Start Date End Date Ester Cain MD PCP - General 05/05/06 Software Technician Relationship Specialty Start Date End Date Ester Cain MD PCP - General 05/05/06 Software Technician Relationship Specialty Start Date End Date Ester Cain MD PCP - General 05/05/06 Software Technician Relationship Specialty Start Date End Date Ester Cain MD PCP - General 05/05/06 Software Technician Relationship Specialty Start Date End Date Ester Cain MD PCP - General 05/05/06 Software Technician Relationship Specialty Start Date End Date Ester Cain MD PCP - General 05/05/06 Software Technician Relationship Specialty Start Date End Date Ester Cain MD PCP - General 05/05/06 Software Technician Relationship Specialty Start Date End Date Ester Cain MD PCP - General 05/05/06 Software Technician Relationship Specialty Start Date End Date Ester Cain MD PCP - General 05/05/06 Software Technician Relationship Specialty Start Date End Date Ester Cain MD PCP - General 05/05/06 Software Technician Relationship Specialty Start Date End Date Ester Cain MD PCP - General 05/05/06 Software Technician Relationship Specialty Start Date End Date Ester Cain MD PCP - General 05/05/06 Software Technician Relationship Specialty Start Date End Date Ester Cain MD PCP - General 05/05/06 Software Technician Relationship Specialty Start Date End Date Ester Cain MD PCP - General 05/05/06 Software Technician Relationship Specialty Start Date End Date Ester Cain MD PCP - General 05/05/06 Software Technician Relationship Specialty Start Date End Date Ester Cain MD PCP - General 05/05/06 Software Technician Relationship Specialty Start Date End Date Ester Cain MD PCP - General 05/05/06 Katherine Keith Md, [facility] 09/07/23 Software Technician Relationship Specialty Start Date End Date Ester Cain MD PCP - General 05/05/06 Katherine Keith Md, [facility] 09/07/23 Software Technician Relationship Specialty Start Date End Date Ester Cain MD PCP - General 05/05/06 Katherine Keith Md, [facility] 09/07/23 Software Technician Relationship Specialty Start Date End Date Ester Cain MD PCP - General 05/05/06 Katherine Keith Md, [facility] 09/07/23 Software Technician Relationship Specialty Start Date End Date Ester Cain MD PCP - General 05/05/06 Katherine Keith Md, [facility] 09/07/23 Software Technician Relationship Specialty Start Date End Date Ester Cain MD PCP - General 05/05/06 Katherine Keith Md, [facility] 09/07/23 Software Technician Relationship Specialty Start Date End Date Ester Cain MD PCP - General 05/05/06 Katherine Keith Md, [facility] 09/07/23 Software Technician Relationship Specialty Start Date End Date Ester Cain MD PCP - General 05/05/06 Katherien Keith Md, MD [facility] 09/07/23 Software Technician Relationship Specialty Start Date End Date Ester Cain MD PCP - General 05/05/06 Katherine Keith Md, [facility] 09/07/23 Software Technician Relationship Specialty Start Date End Date Ester Cain MD PCP - General 05/05/06 Katherine Keith Md, [facility] 09/07/23 Software Technician Relationship Specialty Start Date End Date Ester Cain MD PCP - General 05/05/06 Katherine Keith Md, [facility] 09/07/23 Software Technician Relationship Specialty Start Date End Date Ester Cain MD PCP - General 05/05/06 Katherine Keith Md, [facility] 09/07/23 Software Technician Relationship Specialty Start Date End Date Ester Cain MD PCP - General 05/05/06 Katherine Keith Md, [facility] 09/07/23 Software Technician Relationship Specialty Start Date End Date Ester Cain MD PCP - General 05/05/06 Katherine Keith Md, [facility] 09/07/23 Software Technician Relationship Specialty Start Date End Date Ester Cain MD PCP - General 05/05/06 Katherine Keith Md, [facility] 09/07/23 Software Technician Relationship Specialty Start Date End Date Ester Cain MD PCP - General 05/05/06 Katherine Keith Md, [facility] 09/07/23 Software Technician Relationship Specialty Start Date End Date Ester Cain MD PCP - General 05/05/06 Katherine Keith Md, MD [facility] 09/07/23 Team Status: Inactive Member Role Status Dates Ester Cain MD Primary Care Provider Active Start: November 26, 2023 End: November 26, 2023 Camryn Agustin MD [facility] Attending Provider Active Start: November 26, 2023 End: November 26, 2023 Software Technician Relationship Specialty Start Date End Date Ester Cain MD PCP - General 05/05/06 Katherine Keith Md, MD [facility] 09/07/23 Software Technician Relationship Specialty Start Date End Date Ester [...] or prosecute any alcohol or drug abuse patient.[facility] the event this information is protected by the Federal Confidentiality of Alcohol and Drug Abuse Patient Records regulations: The Federal rules restrict any use of the information to criminally investigate or prosecute any alcohol or drug abuse patient.[facility] the event this information is protected by the Federal Confidentiality of Alcohol and Drug Abuse Patient Records regulations: The Federal rules restrict any use of the information to criminally investigate or prosecute any alcohol or drug abuse patient.[facility] the event this information is protected by the Federal Confidentiality of Alcohol and Drug Abuse Patient Records regulations: The Federal rules restrict any use of the information to criminally investigate or prosecute any alcohol or drug abuse patient.[facility] the event this information is protected by the Federal Confidentiality of Alcohol and Drug Abuse Patient Records regulations: The Federal rules restrict any use of the information to criminally investigate or prosecute any alcohol or drug abuse patient.[facility] the event this information is protected by the Federal Confidentiality of Alcohol and Drug Abuse Patient Records regulations: The Federal rules restrict any use of the information to criminally investigate or prosecute any alcohol or drug abuse patient.[facility] the event this information is protected by the Federal Confidentiality of Alcohol and Drug Abuse Patient Records regulations: The Federal rules restrict any use of the information to criminally investigate or prosecute any alcohol or drug abuse patient.[facility] the event this information is protected by the Federal Confidentiality of Alcohol and Drug Abuse Patient Records regulations: The Federal rules restrict any use of the information to criminally investigate or prosecute any alcohol or drug abuse patient.[facility] the event this information is protected by the Federal Confidentiality of Alcohol and Drug Abuse Patient Records regulations: The Federal rules restrict any use of the information to criminally investigate or prosecute any alcohol or drug abuse patient.[facility] the event this information is protected by the Federal Confidentiality of Alcohol and Drug Abuse Patient Records regulations: The Federal rules restrict any use of the information to criminally investigate or prosecute any alcohol or drug abuse patient.[facility] the event this information is protected by the Federal Confidentiality of Alcohol and Drug Abuse Patient Records regulations: The Federal rules restrict any use of the information to criminally investigate or prosecute any alcohol or drug abuse patient.[facility] the event this information is protected by the Federal Confidentiality of Alcohol and Drug Abuse Patient Records regulations: The Federal rules restrict any use of the information to criminally investigate or prosecute any alcohol or drug abuse patient.[facility] the event this information is protected by the Federal Confidentiality of Alcohol and Drug Abuse Patient Records regulations: The Federal rules restrict any use of the information to criminally investigate or prosecute any alcohol or drug abuse patient.[facility] the event this information is protected by the Federal Confidentiality of Alcohol and Drug Abuse Patient Records regulations: The Federal rules restrict any use of the information to criminally investigate or prosecute any alcohol or drug abuse patient.[facility] the event this information is protected by the Federal Confidentiality of Alcohol and Drug Abuse Patient Records regulations: The Federal rules restrict any use of the information to criminally investigate or prosecute any alcohol or drug abuse patient.[facility] HospitalIn the event this information is protected by the Federal Confidentiality of Alcohol and Drug Abuse Patient Records regulations: The Federal rules restrict any use of the information to criminally investigate or prosecute any alcohol or drug abuse patient.[facility] HospitalIn the event this information is protected by the Federal Confidentiality of Alcohol and Drug Abuse Patient Records regulations: The Federal rules restrict any use of the information to criminally investigate or prosecute any alcohol or drug abuse patient.[facility] HospitalIn the event this information is protected by the Federal Confidentiality of Alcohol and Drug Abuse Patient Records regulations: The Federal rules restrict any use of the information to criminally investigate or prosecute any alcohol or drug abuse patient.[facility] HospitalIn the event this information is protected by the Federal Confidentiality of Alcohol and Drug Abuse Patient Records regulations: The Federal rules restrict any use of the information to criminally investigate or prosecute any alcohol or drug abuse patient.[facility] HospitalIn the event this information is protected by the Federal Confidentiality of Alcohol and Drug Abuse Patient Records regulations: The Federal rules restrict any use of the information to criminally investigate or prosecute any alcohol or drug abuse patient.[facility] HospitalIn the event this information is protected by the Federal Confidentiality of Alcohol and Drug Abuse Patient Records regulations: The Federal rules restrict any use of the information to criminally investigate or prosecute any alcohol or drug abuse patient.[facility] HospitalIn the event this information is protected by the Federal Confidentiality of Alcohol and Drug Abuse Patient Records regulations: The Federal rules restrict any use of the information to criminally investigate or prosecute any alcohol or drug abuse patient.[facility] HospitalIn the event this information is protected by the Federal Confidentiality of Alcohol and Drug Abuse Patient Records regulations: The Federal rules restrict any use of the information to criminally investigate or prosecute any alcohol or drug abuse patient.[facility] HospitalIn the event this information is protected by the Federal Confidentiality of Alcohol and Drug Abuse Patient Records regulations: The Federal rules restrict any use of the information to criminally investigate or prosecute any alcohol or drug abuse patient.[facility] HospitalIn the event this information is protected by the Federal Confidentiality of Alcohol and Drug Abuse Patient Records regulations: The Federal rules restrict any use of the information to criminally investigate or prosecute any alcohol or drug abuse patient.[facility] HospitalIn the event this information is protected by the Federal Confidentiality of Alcohol and Drug Abuse Patient Records regulations: The Federal rules restrict any use of the information to criminally investigate or prosecute any alcohol or drug abuse patient.[facility] HospitalIn the event this information is protected by the Federal Confidentiality of Alcohol and Drug Abuse Patient Records regulations: The Federal rules restrict any use of the information to criminally investigate or prosecute any alcohol or drug abuse patient.[facility] HospitalIn the event this information is protected by the Federal Confidentiality of Alcohol and Drug Abuse Patient Records regulations: The Federal rules restrict any use of the information to criminally investigate or prosecute any alcohol or drug abuse patient.[facility] HospitalIn the event this information is protected by the Federal Confidentiality of Alcohol and Drug Abuse Patient Records regulations: The Federal rules restrict any use of the information to criminally investigate or prosecute any alcohol or drug abuse patient.[facility] HospitalIn the event this information is protected by the Federal Confidentiality of Alcohol and Drug Abuse Patient Records regulations: The Federal rules restrict any use of the information to criminally investigate or prosecute any alcohol or drug abuse patient.[facility] HospitalIn the event this information is protected by the Federal Confidentiality of Alcohol and Drug Abuse Patient Records regulations: The Federal rules restrict any use of the information to criminally investigate or prosecute any alcohol or drug abuse patient.[facility] HospitalIn the event this information is protected by the Federal Confidentiality of Alcohol and Drug Abuse Patient Records regulations: The Federal rules restrict any use of the information to criminally investigate or prosecute any alcohol or drug abuse patient.[facility] HospitalIn the event this information is protected by the Federal Confidentiality of Alcohol and Drug Abuse Patient Records regulations: The Federal rules restrict any use of the information to criminally investigate or prosecute any alcohol or drug abuse patient.[facility] HospitalIn the event this information is protected by the Federal Confidentiality of Alcohol and Drug Abuse Patient Records regulations: The Federal rules restrict any use of the information to criminally investigate or prosecute any alcohol or drug abuse patient.[facility] HospitalIn the event this information is protected by the Federal Confidentiality of Alcohol and Drug Abuse Patient Records regulations: The Federal rules restrict any use of the information to criminally investigate or prosecute any alcohol or drug abuse patient.[facility] HospitalIn the event this information is protected by the Federal Confidentiality of Alcohol and Drug Abuse Patient Records regulations: The Federal rules restrict any use of the information to criminally investigate or prosecute any alcohol or drug abuse patient.[facility] HospitalIn the event this information is protected by the Federal Confidentiality of Alcohol and Drug Abuse Patient Records regulations: The Federal rules restrict any use of the information to criminally investigate or prosecute any alcohol or drug abuse patient.[facility] HospitalIn the event this information is protected by the Federal Confidentiality of Alcohol and Drug Abuse Patient Records regulations: The Federal rules restrict any use of the information to criminally investigate or prosecute any alcohol or drug abuse patient.[facility] HospitalIn the event this information is protected by the Federal Confidentiality of Alcohol and Drug Abuse Patient Records regulations: The Federal rules restrict any use of the information to criminally investigate or prosecute any alcohol or drug abuse patient.[facility] HospitalIn the event this information is protected by the Federal Confidentiality of Alcohol and Drug Abuse Patient Records regulations: The Federal rules restrict any use of the information to criminally investigate or prosecute any alcohol or drug abuse patient.[facility] HospitalIn the event this information is protected by the Federal Confidentiality of Alcohol and Drug Abuse Patient Records regulations: The Federal rules restrict any use of the information to criminally investigate or prosecute any alcohol or drug abuse patient.[facility] HospitalIn the event this information is protected by the Federal Confidentiality of Alcohol and Drug Abuse Patient Records regulations: The Federal rules restrict any use of the information to criminally investigate or prosecute any alcohol or drug abuse patient.[facility] HospitalIn the event this information is protected by the Federal Confidentiality of Alcohol and Drug Abuse Patient Records regulations: The Federal rules restrict any use of the information to criminally investigate or prosecute any alcohol or drug abuse patient.[facility] HospitalIn the event this information is protected by the Federal Confidentiality of Alcohol and Drug Abuse Patient Records regulations: The Federal rules restrict any use of the information to criminally investigate or prosecute any alcohol or drug abuse patient.[facility] HospitalIn the event this information is protected by the Federal Confidentiality of Alcohol and Drug Abuse Patient Records regulations: The Federal rules restrict any use of the information to criminally investigate or prosecute any alcohol or drug abuse patient.[facility] HospitalIn the event this information is protected by the Federal Confidentiality of Alcohol and Drug Abuse Patient Records regulations: The Federal rules restrict any use of the information to criminally investigate or prosecute any alcohol or drug abuse patient.[facility] HospitalIn the event this information is protected by the Federal Confidentiality of Alcohol and Drug Abuse Patient Records regulations: The Federal rules restrict any use of the information to criminally investigate or prosecute any alcohol or drug abuse patient.[facility] HospitalIn the event this information is protected by the Federal Confidentiality of Alcohol and Drug Abuse Patient Records regulations: The Federal rules restrict any use of the information to criminally investigate or prosecute any alcohol or drug abuse patient.[facility] HospitalIn the event this information is protected by the Federal Confidentiality of Alcohol and Drug Abuse Patient Records regulations: The Federal rules restrict any use of the information to criminally investigate or prosecute any alcohol or drug abuse patient.[facility] HospitalIn the event this information is protected by the Federal Confidentiality of Alcohol and Drug Abuse Patient Records regulations: The Federal rules restrict any use of the information to criminally investigate or prosecute any alcohol or drug abuse patient.[facility] HospitalIn the event this information is protected by the Federal Confidentiality of Alcohol and Drug Abuse Patient Records regulations: The Federal rules restrict any use of the information to criminally investigate or prosecute any alcohol or drug abuse patient.[facility] HospitalIn the event this information is protected by the Federal Confidentiality of Alcohol and Drug Abuse Patient Records regulations: The Federal rules restrict any use of the information to criminally investigate or prosecute any alcohol or drug abuse patient.[facility] HospitalIn the event this information is protected by the Federal Confidentiality of Alcohol and Drug Abuse Patient Records regulations: The Federal rules restrict any use of the information to criminally investigate or prosecute any alcohol or drug abuse patient.[facility] HospitalIn the event this information is protected by the Federal Confidentiality of Alcohol and Drug Abuse Patient Records regulations: The Federal rules restrict any use of the information to criminally investigate or prosecute any alcohol or drug abuse patient.[facility] HospitalIn the event this information is protected by the Federal Confidentiality of Alcohol and Drug Abuse Patient Records regulations: The Federal rules restrict any use of the information to criminally investigate or prosecute any alcohol or drug abuse patient.[facility] Reason for Visit (unrecogniz ed section [...] SPI W/SKULL 2/3 VW Katherine Keith MD [address] [facility] [place] [id number] [facility] [place] [facility] Referral ID Status Reason Start Date Expiration Date V isits Requested Visits Authorized [id number] Closed Auto-Generate d Referral 04/30/2023 05/29/2024 1 1 Reason Comments Radio Main J1 Specialty Diagnoses / Procedures Referred By Contac t Referred To Contact XR IMAGING Diagnoses Spinal stenosis, lumbar region with neurogenic claudication Procedures XR LUMBAR MOTION 4V AP/LAT/ FLEX/EXT RADEX SPINE LUMBOSACRAL MINIMUM 4 VIEWS Alfonso Loyd PA-C [address] [place] [address] Xr Imaging [place] [address] Referral ID Status Reason Start Date Expiration Date V isits Requested Visits Authorized [id number] Closed Auto-Generate d Referral 03/21/2023 04/19/2024 1 1 Specialty Diagnoses / Procedures Referred By Contac t Referred To Contact CT IMAGING Diagnoses Chronic low back pain, unspecified back pain laterality, unspecified whether sciatica present Procedures CT LUMBAR SPINE WO IVCON CT LUMBAR SPINE W/O CONTRAST MATERIAL Katherine Keith MD [address] [place] [address] [place] [address] Referral ID Status Reason Start Date Expiration Date V isits Requested Visits Authorized [id number] Closed Auto-Generate d Referral 04/30/2023 05/29/2024 1 [...] Reason Onset Date Comments Refill Request 10/15/2023 Reason Comments medication Reason Comments Established Patient Reason Onset Date Comments Refill Request 10/29/2023 Reason Onset Date Comments Refill Request 11/05/2023 Reason Comments Insurance Authorization Specialty Diagnoses / Procedures Referred By Lencho t Referred To Contact XR IMAGING Diagnoses History of laminectomy Degenerative scoliosis in adult patient Procedures XR LUMBAR LIMITED 2V AP/LAT RADEX SPINE LUMBOSACRAL 2/3 VIEWS Alfonso Loyd PA-C [address] [place] [phone] [place] [address] Referral ID Status Reason Start Date Expiration Date V isits Requested Visits Authorized [id number] Closed Auto-Generate d Referral 07/11/2023 08/09/2024 1 1 Reason Comments Post Op Reason Comments [employer] - Other FOR RECORDS PERTAINING TO PATIENTS WHO ARE [...] BE BASED ON THE PRIMARY CLINICAL RECORDS. [employer] provides no warranty or guarantee of the accuracy or completeness of information in this document.
[2023-12-09 07:13] LABS: Cholesterol 163 mg/dL (<=200); HDL Cholesterol 54 mg/dL (40-60); LDL Cholesterol Calculated 93.2 mg/dL; Triglycerides 79 mg/dL (<=150); VLDL CHOLESTEROL 15.8 mg/dL
== END 2023-12-09 06:17 | disposition home or self-care (01) ==
LOC: LAB 06:17
PROVIDERS: PCP Family Medicine; Visit Provider Family Medicine
DX: E78.00 Pure hypercholesterolemia, unspecified (principal)
CPT/HCPCS: 36415; 80061

== ENCOUNTER 2024-05-03 16:05 | Outpatient (OUT) | payer OTHER, SELFPAY ==
--- NOTE | 2024-05-03 16:26 | XR_ITS ---
The [address] [address] Patient Name: BRADEN PAYNE MRN: [id number] date: 1955 Sex: M Assigned Patient Location: RAD Current Patient Location: [facility] Accession/Order Number: [id number] Exam Date: 05/03/2024 16:35 Report Date: 05/03/2024 16:41 At the request of: ESTER CAIN MD Procedure: XR ankle LT min 3V LEFT ANKLE - 3 views CLINICAL DATA: Patient fell 2 weeks ago and has continued medial left ankle pain. COMPARISON: None AP, lateral and oblique views were obtained. There is question of a subtle bony spicule along the tip of the medial malleolus. An avulsion injury is not completely excluded however there is no associated asymmetric soft tissue swelling. The remaining bony structures are intact. No dislocation is seen. Atherosclerotic disease is noted. XR/XR ankle LT min 3V IMPRESSION: EQUIVOCAL AVULSION INJURY AT THE TIP OF THE MEDIAL MALLEOLUS. FOCAL CLINICAL CORRELATION IS SUGGESTED. Impression dictated by: Charlene Souza M.D.05/03/2024 4:41 PM Dictation Location: [place] [address] Electronically authenticated by: [id number] Y Date: 05/03/2024 16:41
== END 2024-05-03 16:06 | disposition home or self-care (01) ==
LOC: RAD 16:09
PROVIDERS: PCP Family Medicine; Visit Provider Family Medicine
DX: S93.409A Sprain of unspecified ligament of unspecified ankle, initial encounter (principal)
CPT/HCPCS: 73610

== ENCOUNTER 2024-06-29 17:09 | Outpatient (OUT) | payer OTHER, SELFPAY ==
--- NOTE | 2024-06-29 17:25 | XR_ITS ---
[place] [id number] Patient Name: BRADEN PAYNE MRN: [id number] date: 1955 Sex: M Assigned Patient Location: [facility] Current Patient Location: [facility] Accession/Order Number: [id number] Exam Date: 06/29/2024 17:59 Report Date: 06/29/2024 18:00 At the request of: NON-STAFF PHYSICIAN MD Procedure: XR cervical spine 2-3V CERVICAL SPINE 3 views: CLINICAL HISTORY: S/P cervical spinal fusion, Z98.1 COMPARISON: Cervical spine 01/18/2022 FINDINGS: Posterior hardware fixation C4-C6 without hardware complication. Vertebral body heights appear maintained. Diffuse moderate disc space narrowing. No prevertebral soft tissue swelling. XR/XR cervical spine 2-3V IMPRESSION: NO HARDWARE COMPLICATION. Impression dictated by: James Pisano Jr., D.O.06/29/2024 6:00 PM Dictation Location: [employer] Electronically authenticated by: [id number] Y Date: 06/29/2024 18:00
== END 2024-06-29 17:10 | disposition home or self-care (01) ==
LOC: RAD 17:10
PROVIDERS: PCP Family Medicine
DX: M43.22 Fusion of spine, cervical region (principal); Z98.1 Arthrodesis status
CPT/HCPCS: 72040

== ENCOUNTER 2024-07-06 06:38 | Outpatient (OUT) | payer OTHER, SELFPAY ==
[2024-07-06 07:09] LABS: Basophils Absolute Auto 0.1 10^3/uL (0.0-0.1); Basophils Percent Auto 0.7 % (0.2-2.0); Eosinophils Absolute Auto 0.4 10^3/uL (0.0-0.7); Eosinophils Percent Auto 5.3 % (0.9-7.0); Hematocrit 37.4 % (42.0-54.0); Hemoglobin 12.8 g/dL (14.0-18.0); Immature Granulocytes Abs Auto 0.05 10^3/uL (0.00-0.03); Immature Granulocytes Pct Auto 0.7 % (0.0-0.5); Lymphocytes Absolute Auto 2.7 10^3/uL (1.2-3.8); Mean Corpuscular HGB Conc 34.2 g/dL (29.9-35.2); Mean Corpuscular Hemoglobin 32.3 pg (25.9-34.0); Mean Corpuscular Volume 94.4 fL (80.0-94.0); Monocytes Percent Auto 14.1 % (1.7-12.0); Neutrophils Absolute Auto 2.8 10^3/uL (1.4-6.5); Neutrophils Percent Auto 40.2 % (43.0-75.0); Platelet Count 226 10^3/uL (150-450); Red Blood Count 3.96 10^6/uL (4.70-6.10); Red Cell Distribution Width 12.5 % (11.0-15.0); White Blood Count 6.9 10^3/uL (4.0-11.0)
[2024-07-06 07:10] LABS: Estimated Average Glucose 105 mg/dL; Glycohemoglobin A1C 5.3 % (4.5-6.2)
[2024-07-06 08:17] LABS: Alanine Aminotransferase 14 U/L (16-63); Albumin Globulin Ratio 1.4; Albumin Level 3.6 g/dL (3.4-5.0); Alkaline Phosphatase 67 U/L (46-116); Anion Gap 14.5; Aspartate Amino Transferase 17 U/L (15-37); BUN Creatinine Ratio 21.1; Bilirubin Total 0.9 mg/dL (0.2-1.0); Calcium 9.2 mg/dL (8.5-10.1); Carbon Dioxide 27.4 mmol/L (21.0-32.0); Chloride 105 mmol/L (98-107); Chol HDL Ratio 3.8; Cholesterol 165 mg/dL (<=200); Estimated GFR (African America >60 (>=60 mL/min/1.73m^2); Estimated GFR (Non-African Ame >60 (>=60 mL/min/1.73m^2); Free T3 3.52 pg/mL (2.18-3.98); Globulin 2.5 g/dL; Glucose 88 mg/dL (74-106); HDL Cholesterol 44 mg/dL (40-60); LDL Cholesterol Calculated 101.4 mg/dL; Potassium 3.9 mmol/L (3.5-5.1); Sodium 143 mmol/L (136-145); Thyroid Stimulating Hormone 2.326 uIU/mL (0.358-3.740); Total Protein 6.1 g/dL (6.4-8.2); Triglycerides 98 mg/dL (<=150); VLDL CHOLESTEROL 19.6 mg/dL
[2024-07-06 08:22] LABS: Prostate Specific Antigen Scrn 1.08 ng/mL (<=4.00)
== END 2024-07-06 06:39 | disposition home or self-care (01) ==
LOC: LAB 06:39
PROVIDERS: PCP Family Medicine; Visit Provider Family Medicine
DX: E16.2 Hypoglycemia, unspecified (principal); Z12.5 Encounter for screening for malignant neoplasm of prostate; I50.30 Unspecified diastolic (congestive) heart failure; R77.8 Other specified abnormalities of plasma proteins; I11.0 Hypertensive heart disease with heart failure
CPT/HCPCS: 36415; 80053; 80061; 83036; 83880; 84436; 84443; 84481; 84484; 85025; G0103

== ENCOUNTER 2024-07-26 10:00 | Outpatient (RCR) | payer OTHER, SELFPAY | END 2024-10-30 13:07 | disposition home or self-care (01) | LOC: PT 10:00 | PROVIDERS: PCP Family Medicine; Visit Provider Physician Assistant | DX: M79.671 Pain in right foot (principal); Z98.1 Arthrodesis status; M79.672 Pain in left foot; M21.379 Foot drop, unspecified foot; R26.81 Unsteadiness on feet | CPT/HCPCS: 97014; 97110; 97112; 97161 ==

== ENCOUNTER 2024-09-28 06:47 | Outpatient (OUT) | payer OTHER, SELFPAY ==
--- OUTSIDE RECORDS SUMMARY | 2023-04-30 08:20 | XMS_ITS | Continuity of Care Document ---
Author Organization [facility] o Address [address] [place] [address] Phone Care Team Providers Care Hand Former Helper Name Role Phone Tobi Angeles MD Unavailable [...] BUCCAL - Active Procedures Procedure Date Office/outpatient visit,[facility] 2023 X-ray exam lower spine 2-3 views 2023 Advance Directives Directive Yes / No Effective Date File Name No Information Encounters Encounter Description Practice Location Reason(s) For Visit Diagnoses Date Provider Providers [facility]ied on [facility] [address] [place], [place], [facility], tel:[phone] No Information 4 Bridgette Britton. [address], [place], [place], [id number] , [place]. tel:[phone] Referring Provider: Tobi Musa, [address], [place], [address] . tel:[phone] Office/outpat ient visit,[facility], [facility] [place], [address], [place] tel:[phone] POS[facility] Alejandra Radiculopath y, lumbar region 4 Bridgette Britton. [address], [place], [place], [id number] , [place]. tel:[phone] Referring Provider: Tobi Musa, [address], [place], [address] . tel:[phone] [facility] [place], [address], [place], [address], [place] tel:[phone] POSI Alejandra No Information 4 Bridgette Britton. [address], [place], [place], [id number] , [place]. tel:[phone] Family History Family Member Type Diagnosis Age At Onset No Information Payers Payer name Insurance type Covered alliance party ID Marcin greer(s) UMR - [id number] Social History Type Description Quantity Date Captured [...]
--- OUTSIDE RECORDS SUMMARY | 2024-09-13 06:15 | XMS_ITS ---
Author Organization [facility] in [place] Address [address] [place] [address] Care Team Providers Care Rubber Extrusion Machine Operator Name Role Phone Micheal Craven Primary Care Provider [phone] Allergies Allergen (clinical drug ingredient) Drug/Non Drug Allergy documented on EMR Reaction Allergy Type Onset Date Status methocarbamol Robaxin Unknown Drug Allergy Act samy Penicillin hives Drug Allergy Active REASON FOR VISIT Presents to office alone for recheck on Toe. Says it is no any better. Medications Medication SIG (Take, Route, Frequency, Duration) Notes Start Date End Date Status Magnesium 400 MG 1 tablet Orally once daily Active Lasix 20 MG 1 tablet Orally Once a day for 30 days 09/22/2023 Active Mupirocin 2 % 1 application Sausage Linker ally Twice a day for 5 days 09/13/2024 Active Bactrim DS 800-160 MG 1 tablet Orally bi d for 10 days 09/13/2024 Active Ferrous Sulfate 325 (65 Fe) MG 1 tablet Orally bid for 30 days 07/06/2024 Active Cialis 5 MG 1 tables Orally jona y for 30 days 12/22/2023 Active oxyCODONE HCl 5 MG 1 tablets Orally janeth ry 4 hours for 14 days 09/13/2024 Active Cymbalta 30 MG 1 capsule Orally Onc e a day for 14 days 09/13/2024 Active Terbinafine HCl 250 MG 1 tablet Orally O nce a day for 30 days 08/16/2024 Active tiZANidine HCl 4 MG TAKE 2 TABLETS BY [facility] ONCE DAILY AT BEDTIME for 90 Active Cipro 500 MG 1 tablet Orally ever y 12 hrs for 3 day(s) 09/13/2024 Active Social History Tobacco Use: Social History Observation Description Date Details (start date - stop date) Never Smoker NA - NA Tobacco Use/Smoking Question Answer Notes Patient is a nonsmoker AUDIT-C (Standard) Question Answer Notes Did you have a drink containing alcohol in the p ast year? No Points 0 Interpretation Negative Vital Signs Weight 210.6 lbs 09/13/2024 Height 72 in 09/13/2024 Blood pressure systolic 164 mm Hg 09/14/19 25 Blood pressure diastolic 96 mm Hg 025 BMI 28.56 kg/m2 09/13/2024 Encounters Encounter Location Date Provider Diagnosis [facility] [address] [place] [address] 09/13/2024 Micheal Craven Cellulitis L03.9 0 Assessments Encounter Date Diagnosis (ICD Code) Assessment Notes Treatment Notes Treatment Clinical Notes Section Notes 09/13/2024 Cellulitis (ICD-10 - L03.90) Plan Of Treatment Medication Medication Name Sig Start Date Stop Date Notes Amitriptyline HCl 50 MG 1 tablet at bedt clotilde Orally Once a day 08/16/2024 Mupirocin 2 % 1 application Sausage Linker ally Twice a day for 5 days 09/13/2024 Bactrim DS 800-160 MG 1 tablet Orally bid for 10 days 09/2024 oxyCODONE HCl 5 MG 1 tablets Orally janeth ry 4 hours for 14 days 09/13/2024 Cymbalta 30 MG 1 capsule Orally Onc e a day for 14 days 09/13/2024 Lyrica 100 MG 1 cap Orally 1 in am and 2 at hs 08/30/2024 Cipro 500 MG 1 tablet Orally ever y 12 hrs for 3 day(s) 09/13/2024 Next Appt Details Provider Name:Micheal Craven, 09:00:00 AM, [address] [place], [address], Medications Administered Medication Instructions Date of Administration Dosage Notes Ketorolac Tromethamine 09/13/2024 60 mg Orphenadrine Citrate 09/13/2024 60 mg Progress Notes * Raza RODRIGUEZ LDOB: [birth year] (69 yo M)Acc No.[id number]:09/13/2024 Progress Note Patient: Raza HUITRON Provider: Mary Craven ([facility])MD :1955 A ge:69 Y S ex:Male Date:09/13/2024 Address:[address] [place] [address], [id number] Check In:10:13 AM ESTCheck O ut:11:24 AM EST Subjective: * Chief Complaints: * P resents to office alone for recheck on Toe. Says it is no any better. * HPI: G eneral: Left great toe =- underside with open area seeing Dr Jeter in 5 day stil onmeds for antifungal. * Active Problem List M54.16 Radiculopathy, lumba r region Modified On:06/06/2023 Status:confirmed E78.00 Pure hypercholestero lemia, unspecified Modified On:07/01/2022 Status:confirmed M54.12 Radiculopathy, cervi miranda region Modified On:07/01/2022 Status:confirmed M75.40 Impingement syndrome of unspecified shoulder Modified On:07/01/2022 Status:confirmed E16.2 Hypoglycemia, unspec ified Modified On:07/01/2022 Status:confirmed I83.90 Asymptomatic varicos e veins of unspecified lower extremity Modified On:07/01/2022 Status:confirmed I47.1 Supraventricular tac hycardia Modified On:07/01/2022 Status:confirmed I49.3 Ventricular prematur e depolarization Modified On:07/01/2022 Status:confirmed M46.1 Sacroiliitis, not el sewhere classified Modified On:07/01/2022 Status:confirmed I10 Essential (primary) hypertension Modified On:01/01/2023 Status:confirmed K57.90 Diverticulosis of in testine, part unspecified, without perforation or abscess without bleeding Modified On:07/01/2022 Status:confirmed R97.20 Elevated prostate sp ecific antigen [PSA] Modified On:06/14/2023W/U Status:confirmed K63.5 Cecal polyp Modified On:11/28/2023W/U Status:confirmed N40.0 BPH (benign prostati c hyperplasia) Modified On:12/22/2023/U Status:confirmed S93.409A Ankle sprain Modified On:05/03/2024/U Status:confirmed M54.12 Cervical radiculopat hy Modified On:05/13/2024/U Status:confirmed L03.90 Cellulitis Modified On:08/16/2024/U Status:confirmed * Medical History: * Surgical History: h ernia repair 05/02laminectomy, lumbar exc Bx lesion nasal bridge 11/2016Lumbar Fusion L2-L5 08/19/2023olonoscopy- Dr. Snell 11/26/2023Laminoplasty Cervical Spine 06/01 * Hospitalization/Major Diagno stic Procedure: s ee above * Family History: F ather: , Melanoma, diagnosed with Unspecified heart disease. M other: , CVA. B rother(s): alive, one from Melanoma. 3 brother(s) . . * Social History: T obacco Use: T obacco Use/Smoking P atient is a n onsmoker D rug/Alcohol: A TAY-C (Standard) D id you have a drink containing alcohol in the past year? N o P oints 0 I nterpretation N egative * Medications: T akingAmitriptyline HCl 50 MG Tablet 1 tablet at bedtime Orally Once a day Cialis(Tadalafil) 5 MG Tablet 1 tables Orally daily Ferrous Sulfate 325 (65 Fe) MG Tablet 1 tablet Orally bid Lasix(Furosemide) 20 MG Tablet 1 tablet Orally Once a day Lyrica(Pregabalin) 100 MG Capsule 1 cap Orally 1 in am and 2 at hs Magnesium 400 MG Tablet 1 tablet Orally once daily oxyCODONE HCl 5 MG Tablet 1 tablets Orally every 4 hours Terbinafine HCl 250 MG Tablet 1 tablet Orally Once a day tiZANidine HCl 4 MG Tablet TAKE 2 TABLETS BY MOUTH ONCE DAILY AT BEDTIME Taking Amitriptyline HCl 50 MG Tablet 1 tablet at bedtime Orally Once a day Taking Cialis(Tadalafil) 5 MG Tablet 1 tables Orally daily Taking Ferrous Sulfate 325 (65 Fe) MG Tablet 1 tablet Orally bid Taking Lasix(Furosemide) 20 MG Tablet 1 tablet Orally Once a day Taking Lyrica(Pregabalin) 100 MG Capsule 1 cap Orally 1 in am and 2 at hs Taking Magnesium 400 MG Tablet 1 tablet Orally once daily Taking oxyCODONE HCl 5 MG Tablet 1 tablets Orally every 4 hours Taking Terbinafine HCl 250 MG Tablet 1 tablet Orally Once a day Taking tiZANidine HCl 4 MG Tablet TAKE 2 TABLETS BY MOUTH ONCE DAILY AT BEDTIME DiscontinuedCefdinir 300 MG Capsule 2 capsule Orally once a day Doxycycline Monohydrate 100 MG Capsule 1 capsule Orally bid Mupirocin 2 % Ointment 1 application Externally Twice a day Medication List reviewed and reconciled with the patientDiscontinued Cefdinir 300 MG Capsule 2 capsule Orally once a day Discontinued Doxycycline Monohydrate 100 MG Capsule 1 capsule Orally bid Discontinued Mupirocin 2 % Ointment 1 application Externally Twice a day Medication List reviewed and reconciled with the patient * Allergies: P enicillin: hives - AllergyRobaxin: Side Effectsno[Allergies Verified] Objective: * Vitals: W t:210.6lbs, Ht: 72 in, BP:164/96mm Hg, BMI:28.56Index, Ht-cm: 182.88 cm, Wt-k.53 kg. * Physical Examination: L eft grae to toe stage 2 decubitus. Assessment: * Assessment: 1Mauri zapien - L03.90 (Primary) Plan: * Treatment: * Therapeutic Injections: Ketorolac Tromethamine : 60 mg (Route: Intramuscular) given by Zayra Livingston , MR on right deltoid (Cellulitis) Orphenadrine Citrate : 60 mg (Route: Intramuscular) given by Zayra Livingston , MR on left deltoid (Cellulitis) * Procedure Codes: 9 [id number] THERAP.INJ. OF MED. INTRAMUSCULAR OR [id number] TORADOL, PER 15 MG, Units: 4.00 , Modifiers: JAYLIN [id number] NORFLEX,UP TO 60MG. * Preventive Medicine: Screenings/Counseling: B RI ACTION PLAN Above Normal BMI Follow-up D ietary management education, guidance, and counseling See treatment section of progress note for complete details of management plan. F ALL RISK SCREENING Fall Risk Assessment: N o falls in the past year * * Sign off status: Completed Visit Status: C HK (Check Out) true * Provider: Mary Craven ([facility])MD Date: 0 09/13/2024 Generated for James crane/Luis Angel/eTransmitting on: 0 09/28/2024 06:52 AM EDT History and Physical Notes * HPI (History of Present Illness) Category Sub-Category Detail Notes Category Not es General Left great toe =- underside with open area seeing Dr Jeter in 5 day stil onmeds for antifungal Physical Examination Category Sub-Category Detail Notes Section Note s Left grae to to e stage 2 decubitus
--- OUTSIDE RECORDS SUMMARY | 2024-09-17 10:30 | XMS_ITS | Encounter Summary ---
Author Organization [facility] Address [address] [place] [address] Care Team Providers Care Head Gauge Unit Operator Name Role Phone Devon Craven MD Primary Care Provider [phone] Reason for Referral * Imaging (Urgent) - Authorized Specialty Diagnoses / Procedures Referred By Contnel t Referred To Contact Radiology Diagnoses Neurogenic ulcer, 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) PAD (peripheral artery disease) Absent pulse Procedures VASC US PVR WITH MARCIAL Mahamed Jeter DPM [address] [address] Phone: tel: fax: [facility] [address] [place] [address] fax: Referral ID Status Reason Start Date Expiration Date V isits Requested Visits Authorized [id number] Authorized 09/17/2024 03/16/2025 1 1 Encounter Details Date Type Department Care Team (Late st Contact Info) Description 09/17/2024 10:30 AM EDT Office Visit [facility] [address] [facility] [address] [place] [address] Mahamed Jeter DPM [address] [facility] [address] [place] [address] Neurogenic ulcer, 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); PAD (peripheral artery disease); Absent pulse Social History Tobacco Use Types Packs/Day Years Used Date Smoking Tobacco: Never Smokeless Tobacco: Never Tobacco Cessation:Counseling Given: Not Answered Alcohol Use Standard Drinks/Week Comments Never 0 (1 standard drink = 0.6 oz pur e alcohol) Sex and Gender Information Value Date Recorded Sex Assigned at Not on file Legal Sex Male 7:12 PM EDT Gender Identity Not on file Sexual Orientation Not on file documented as of this encounter Last Filed Vital Signs Vital Sign Reading Time Taken Comments Blood Pressure 94/56 09/17/2024 10:41 AM EDT Pulse 58 09/17/2024 10:41 AM EDT Temperature 37.1 C (98.7 F) 09/17/2024 10:41 AM EDT Respiratory Rate - - Oxygen Saturation - - Inhaled Oxygen Concentration - - Weight - - Height - - Body Mass Index - - documented in this encounter Plan of Treatment Upcoming Encounters Date Type Department Care Team (Late st Contact Info) Description 10/06/2024 4:15 PM EDT Office Visit [facility] [address] [place] [phone] Mahamed Jeter DPM [address] [place] [address] Scheduled Orders Name Type Priority Associated Diagnoses Orde r Schedule VASC US PVR WITH MARCIAL Imaging High Priority Neurogenic ulcer, 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) PAD (peripheral artery disease) Absent pulse Expected: 09/17/2024 (Approximate), Expires: 09/17/2025 documented as of this encounter Procedures Procedure Name Priority Date/Time Associated Diagnosis Comments SED RATE BY MODIFIED WESTERGREN Routine 09/17/2024 12:44 PM EDT Neurogenic ulcer, 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) CBC (INCLUDES DIFF/PLT) Routine 09/17/2024 12:44 PM EDT Neurogenic ulcer, 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) C-REACTIVE PROTEIN Routine 09/17/2024 12 :44 PM EDT Neurogenic ulcer, 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) PREALBUMIN Routine 09/17/2024 12:44 PM EDT Neurogenic ulcer, 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) COMPREHENSIVE METABOLIC PANEL Routine 09/17/2024 12:44 PM EDT Neurogenic ulcer, 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) documented in this encounter Results * Prealbumin (09/17/2024 12:44 PM EDT) PREALBUMIN 26 10 - 36 mg/dL [facility] Blood Venous blood specimen / Unknown 09/17/2024 12:44 PM EDT 09/17/2024 Narrative [facility] - 09/18/2024 6:07 AM EDT Performed at: [address] [id number] Date Night Sitter: Scout Ludwig PhD, Phone: [phone] Mahamed Jeter DPM LAB BLOOD ORDERABLES Final R esult [facility] * (ABNORMAL) Comprehensive metabolic panel (09/17/2024 12:44 PM EDT) Glucose 89 70 - 99 mg/dL [facility] BUN 23 8 - 27 mg/dL [facility] Creat 1.23 0.76 - 1.27 mg/dL [facility] EGFR 64 >59 mL/min/1.7 3 [facility] BUN/Creat Ratio 19 10 - 24 [facility] Sodium 139 134 - 144 mmol/L [facility] Potassium 5.5(H) 3.5 - 5.2 mmol/L [facility] Chloride 101 96 - 106 mmol/L [facility] Carbon Dioxide 24 20 - 29 mmol/L [facility] Calcium 9.3 8.6 - 10.2 mg/dL [facility] Protein Total 5.8(L) 6.0 - 8.5 g/dL [facility] Albumin 4.2 3.9 - 4.9 g/dL [facility] Globulin Total 1.6 1.5 - 4.5 g/dL [facility] Bili Total 0.5 0.0 - 1.2 mg/dL [facility] Alk Phosphatase 67 44 - 121 IU/L [facility] AST 31 0 - 40 IU/L [facility] ALT 22 0 - 44 IU/L [facility] Blood Venous blood specimen / Unknown 09/17/2024 12:44 PM EDT 09/17/2024 Narrative [facility] - 09/18/2024 6:07 AM EDT Performed at: [address] [place] [id number] Date Night Sitter: Scout Ludwig PhD, Phone: [phone] us Mahamed Jeter DPM LAB BLOOD ORDERABLES Final R esult [facility] * Sedimentation rate, automated (09/17/2024 12:44 PM EDT) [facility] Sed Rate-Westergren 5 0 - 30 mm/hr [facility] Blood Venous blood specimen / Unknown 09/17/2024 12:44 PM EDT 09/17/2024 Narrative [facility] - 09/18/2024 6:07 AM EDT Performed at: [address] [id number] Date Night Sitter: Scout Ludwig PhD, Phone: [phone] us Mahamed Jeter DPM LAB BLOOD ORDERABLES Final R esult Performing Organization Address City/[facility]/ZIP Co de Phone Number [facility] * C-reactive protein (09/17/2024 12:44 PM EDT) [facility] C-Reactive Protein Quant 9 0 - 10 mg/L [facility] Blood Venous blood specimen / Unknown 09/17/2024 12:44 PM EDT 09/17/2024 Narrative [facility] - 09/18/2024 6:07 AM EDT Performed at: [address] [place] [id number] Date Night Sitter: Scout Ludwig PhD, Phone: [phone] us Mahamed R Kubitz DPM LAB BLOOD ORDERABLES Final R esult [facility] * (ABNORMAL) CBC and differential (09/17/2024 12:44 PM EDT) WBC 9.2 3.4 - 10.8 x10E3/uL [facility] RBC 4.11(L) 4.14 - 5.80 x10E6/uL [facility] Hgb 12.8(L) 13.0 - 17.7 g/dL [facility] Hct 39.0 37.5 - 51.0 % [facility] MCV 95 79 - 97 fL [facility] MCH 31.1 26.6 - 33.0 pg [facility] MCHC 32.8 31.5 - 35.7 g/dL [facility] RDW 13.2 11.6 - 15.4 % [facility] Platelets 235 150 - 450 x10E3/uL [facility] Neutrophils 52 Not Estab. % [facility] Lymphs 31 Not Estab. % [facility] Monocytes 12 Not Estab. % [facility] Eos 3 Not Estab. % [facility] Basos 1 Not Estab. % [facility] Neutrophils Abs 4.8 1.4 - 7.0 x10E3/uL [facility] Lymphs Abs 2.9 0.7 - 3.1 x10E3/uL [facility] MonocytesAbs 1.1(H) 0.1 - 0.9 x10E3/uL [facility] Eos Abs 0.2 0.0 - 0.4 x10E3/uL [facility] Baso Abs 0.1 0.0 - 0.2 x10E3/uL [facility] Immature Granulocytes 1 Not Estab. % [facility] Immature Grans Abs 0.1 0.0 - 0.1 x10E3/uL [facility] Blood Venous blood specimen / Unknown 09/17/2024 12:44 PM EDT 09/17/2024 Narrative [facility] - 09/18/2024 6:07 AM EDT Performed at: 01 - [facility] [id number] Date Night Sitter: Scout Ludwig PhD, Phone: [phone] Mahamed Jeter DPM LAB BLOOD ORDERABLES Final R esult [facility] documented in this encounter Visit Diagnoses Diagnosis Neurogenic ulcer, 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) PAD (peripheral artery disease) Unspecified peripheral vascular disease Absent pulse Other symptoms involving cardiovascular system documented in this encounter Care Teams Head Gauge Unit Operator Relationship Specialty Start Date End Date Devon Craven MD [address] [place] [id number] PCP - General Family Medicine 09/08/24 documented as of this encounter
--- OUTSIDE RECORDS SUMMARY | 2024-09-27 05:00 | XMS_ITS ---
Author Organization [facility] in [place] Address [address] [place] [address] Care Team Providers Care Ocularist Name Role Phone Micheal Craven Primary Care Provider Allergies Allergen (clinical drug ingredient) Drug/Non Drug Allergy documented on EMR Reaction Allergy Type Onset Date Status methocarbamol Robaxin Unknown Drug Allergy Act samy Penicillin hives Drug Allergy Active REASON FOR VISIT patient said for the past week in the morning his bs is around 122 Medications Medication SIG (Take, Route, Frequency, Duration) Notes Start Date End Date Status tiZANidine HCl 4 MG TAKE 2 TABLETS BY MO [facility] ONCE DAILY AT BEDTIME for 90 Active oxyCODONE HCl 5 MG 1 tablets Orally janeth ry 4 hours for 14 days 09/13/2024 Active Magnesium 400 MG 1 tablet Orally once daily Active Ferrous Sulfate 325 (65 Fe) MG 1 tablet Orally bid for 30 days 07/06/2024 Active Cialis 5 MG 1 tables Orally jona y for 30 days 12/22/2023 Active Social History Tobacco Use: Social History Observation Description Date Details (start date - stop date) Never Smoker NA - NA Tobacco Use/Smoking Question Answer Notes Patient is a nonsmoker AUDIT-C (Standard) Question Answer Notes Did you have a drink containing alcohol in the p ast year? No Points 0 Interpretation Negative Problems Problem Type SNOMED Code ICD Code Onset Dates Problem Status W/U Status Risk Notes Problem Acute anemia (D64.9) Active confirmed Vital Signs Weight 213.4 lbs 09/27/2024 Height 72 in 09/27/2024 Blood pressure systolic 122 mm Hg 09/28/19 25 Blood pressure diastolic 82 mm Hg 025 BMI 28.94 kg/m2 09/27/2024 Encounters Encounter Location Date Provider Diagnosis [facility] [address] [place] [address] 09/27/2024 Micheal Craven Hypoglycemia, unspecified E16.2 ; Acute anemia D64.9 and Radiculopathy, lumbar region M54.16 Assessments Encounter Date Diagnosis (ICD Code) Assessment Notes Treatment Notes Treatment Clinical Notes Section Notes 09/27/2024 Hypoglycemia, unspecified (ICD-10 - E16.2) 09/27/2024 Acute anemia (ICD-10 - D64.9) 09/27/2024 Radiculopathy, lumbar region (ICD-10 - M54.16) Plan Of Treatment Medication Medication Name Sig Start Date Stop Date Notes oxyCODONE HCl 5 MG 1 tablets Orally janeth ry 4 hours for 14 days 09/13/2024 Pending Test Test Name Order Date HEMOGLOBIN A1C (GLYCO) 09/27/2024 IRON 09/27/2024 CMP (COMP MET OCASIO) w/eGFR CKD-EPI 2024 CBC WITH DIFF 09/27/2024 Next Appt Details Provider Name:Micheal Craven, 09:00:00 AM, [address] [place], [address], Medications Administered Medication Instructions Date of Administration Dosage Notes Ketorolac Tromethamine 09/27/2024 60 mg Orphenadrine Citrate 09/27/2024 60 mg Progress Notes * Raza RODRIGUEZ LDOB: [birth year] (69 yo M)Acc No.[id number]:09/27/2024 UNLOCKED PROGRESS NOTE Progress Note Patient: Raza HUITRON Provider: Mary Craven ([facility])MD :1955 A ge:69 Y S ex:Male Date:09/27/2024 Address:[address] [place], [place] [id number] Check In:08:50 AM ESTCheck O ut:10:02 AM EST Subjective: * Chief Complaints: * 1 . Patient said for the past week in the morning his bs is around 122. * HPI: G eneral: foot ulcer - still there but better withthe AB - using a cream to put on it from podiatry - seeing htem next week - discussed sugars - running - 85 is the lowest - sugar running 120's Doin vascular studies - later today. * ROS: E ENT: hearing changes d enies. v isual changes d enies.?non-healing mouth sores d enies. s wollen glands or neck lumps d enies. h oarseness d enies. s ore throat d enies. d ifficulty swallowing d enies. n ose bleeds d enies. n dahlia congestion d enies. e ar ache d enies. e ar discharge?denies. r inging in ears d enies. l ight sensitivity d enies. e ye pain d enies. b lurring d enies. e ye irritation d enies. d ouble vision d enies.?vision loss d enies. G eneral/Constitutional: Sweats: D enies. F atigue d enies. S leep problems d enies. A norexia d enies. M alaise d enies. W eight loss d enies.?Fatigue or Weakness d enies. F ever or Chills d enies. C ardiovascular: Shortness of Breath w/lying flat d enies. L ightheadedness/dizziness d enies. C hest tightness/ heavy pressure d enies. S welling of legs, ankles, or feet d enies. W aking up with shortness of breath d enies. C hest pain denies. P alpitations d enies. W eight gain d enies. R espiratory: Chronic or frequent cough d enies. C oughing up blood?denies. D ifficulty breathing d enies. P roductive cough d enies. S noring?denies. S hortness of breath that awakens from sleep (PND) d enies. C hest pain d enies. S putum production d enies. W heezing d enies. M usculoskeletal: Joint pain d enies. J oint Fluid d enies. B ack pain d enies. K nee pain d enies. N fidelia pain d enies. J oint Stiffness d enies. M uscle cramps d enies. W eakness of muscles d enies. A rthritis d enies. M uscle aches d enies. P ain in shoulder(s) d enies. S wollen joints d enies. * Medical History: B ack pain, Cervical radiculopathy, COVID-19, Diverticulosis, Hypertension, Hypoglycemia, Lumbar disc disease, Lumbar radiculopathy, Pure hypercholesterolemia, Shoulder impingement syndrome, Other specified cardiac arrhythmias, Ventricular tachycardia, PVC (premature ventricular contraction), Varicose veins. * Surgical History: h ernia repair 05/02, laminectomy, lumbar , exc Bx lesion nasal bridge 11/2016, Lumbar Fusion L2-L5 08/19/2023, Colonoscopy- Dr. Snell 11/26/2023, Laminoplasty Cervical Spine 06/01. * Hospitalization/Major Diagno stic Procedure: s ee above . * Family History: F ather: , Melanoma, [...] I nterpretation N egative * Medications: T aking Cialis(Tadalafil) 5 MG Tablet 1 tables Orally daily , Taking Ferrous Sulfate 325 (65 Fe) MG Tablet 1 tablet Orally bid , Taking Magnesium 400 MG Tablet 1 tablet Orally once daily , Taking oxyCODONE HCl 5 MG Tablet 1 tablets Orally every 4 hours , Taking tiZANidine HCl 4 MG Tablet TAKE 2 TABLETS BY MOUTH ONCE DAILY AT BEDTIME , Medication List reviewed and reconciled with the patient * Allergies: P enicillin: hives - Allergy, Robaxin: Side Effects. Objective: * Vitals: W t:213.4lbs, Ht: 72 in, BP:122/82mm Hg, BMI:28.94Index, Ht-cm: 182.88 cm, Wt-k.8 kg. * Examination: P hysical Exam: GENERAL: w ell developed, well nourished, in no acute distress. HEAD: n ormocephalic/atraumatic. EYES: p upils equal, round and reactive to light, conjunctivae and sclerae normal. EARS: n o deformity or lesion of external ear, canals and TM appear normal bilaterally, TM's intact, not inflamed with normal light reflex, hearing grossly normal to conversational speech. NOSE: n o deformity, discharge, inflammation, or lesions.? MOUTH: m ucous membranes moist, normal oropharynx and posterior pharynx without lesions or exudates, tongue normal, dentition normal. NECK: n fidelia supple, no masses or palpable cervical nodes, trachea midline, thyroid without nodules, masses, tenderness, or enlargement. CHEST: n o chest wall deformity, no chest wall tenderness.? LUNGS: n ormal respiratory effort and clear to auscultation, no wheezes, rales, or rhonchi, good air exchange. CARDIO: r egular rate and rhythm, normal S1 and S2, nor murmur, rub, or gallop. PULSES: n ormal capillary refill. ABDOMEN: s oft, non-distended, non-tender, no masses. MUSCULOSKELETAL: n o deformity or scoliosis noted, normal range of motion, joints normal, no erythema, edema, effusion, or ecchymosis. EXTREMITY: n o clubbing, cyanosis, edema, or deformity with normal ROM in both upper and lower bilateral extremities. NEUROLOGIC: g rossly normal. SKIN: n o rashes, ulcerations, or suspicious lesions. LYMPH NODES: n o cervical adenopathy, nodes normal. MENTAL STATUS: a lert and oriented x3, normal mood and affect. Assessment: * Assessment: 1. H ypoglycemia, unspecified - E16.2 (Primary) 2 . A cute anemia - D64.9? 3. R adiculopathy, lumbar region - M54.16 Plan: * Treatment: 2. A cute anemia L AB: HEMOGLOBIN A1C (GLYCO) L AB: IRON L AB: CMP (COMP MET OCASIO) w/eGFR CKD-EPI L AB: CBC WITH DIFF 3. R adiculopathy, lumbar region Refill oxyCODONE HCl Tablet, 5 MG, 1 tablets, Orally, every 4 hours, 14 days, 84 Tablet, Refills 0.? * Therapeutic Injections: Ketorolac Tromethamine : 60 mg (Route: Intramuscular) given by Zayra Livingston , MR on right deltoid (Radiculopathy, lumbar region) Orphenadrine Citrate : 60 mg (Route: Intramuscular) given by Zayra Livingston , MR on right deltoid (Radiculopathy, lumbar region) * Procedure Codes: J 1885 TORADOL, PER 15 MG, 32632 THERAP.INJ. OF MED. INTRAMUSCULAR OR SUBCUTANEOUS, J2360 NORFLEX,UP TO 60MG. * Preventive Medicine: Screenings/Counseling: B AR ACTION PLAN Above Normal BMI Follow-up D ietary management education, guidance, and counseling See treatment section of progress note for complete details of management plan. F ALL RISK SCREENING Fall Risk Assessment: N o falls in the past year * * Electronic signature of Micheal Craven MD, [phone] on 09/28/2024 at 06:53 AM EDT Sign off status: Pending Visit Status: C HK (Check Out) * Provider: Mary Craven ([facility])MD Date: 0 09/27/2024 Generated for Printi ng/Luis Angel/eTransmitting on: 0 09/28/2024 06:53 AM EDT History and Physical Notes * HPI (History of Present Illness) Category Sub-Category Detail Notes Category Not es General foot ulcer - still there but better withthe AB - using a cream to put on it from podiatry - seeing htem next week - discussed sugars - running - 85 is the lowest - sugar running 120's Doin vascular studies - later today Examination Category Sub-Category Detail Notes Category Not es Physical Exam GENERAL: well developed, well nourished, in no acute distress HEAD: normocephalic/atraum atic EYES: pupils equal, round and reactive to light, conjunctivae and sclerae normal EARS: no deformity or lesi on of external ear, canals and TM appear normal bilaterally, TM's intact, not inflamed with normal light reflex, hearing grossly normal to conversational speech NOSE: no deformity, discha rge, inflammation, or lesions MOUTH: mucous membranes sumeet st, normal oropharynx and posterior pharynx without lesions or exudates, tongue normal, dentition normal NECK: neck supple, no mass es or palpable cervical nodes, trachea midline, thyroid without nodules, masses, tenderness, or enlargement CHEST: no chest wall deform ity, no chest wall tenderness LUNGS: normal respiratory e ffort and clear to auscultation, no wheezes, rales, or rhonchi, good air exchange CARDIO: regular rate and rhy thm, normal S1 and S2, nor murmur, rub, or gallop PULSES: normal capillary ref ill ABDOMEN: soft, non-distended, non-tender, no masses RECTAL: MUSCULOSKELETAL: no deformity or scol iosis noted, normal range of motion, joints normal, no erythema, edema, effusion, or ecchymosis EXTREMITY: no clubbing, cyanosi s, edema, or deformity with normal ROM in both upper and lower bilateral extremities NEUROLOGIC: grossly normal SKIN: no rashes, ulceratio ns, or suspicious lesions LYMPH NODES: no cervical adenopat hy, nodes normal MENTAL STATUS: alert and oriented x 3, normal mood and affect
--- OUTSIDE RECORDS SUMMARY | 2024-09-27 07:46 | XMS_ITS ---
Author Organization [facility] in [place] Address [address] [place] [address] Care Team Providers Care Ware Finisher Name Role Phone Micheal Craven Primary Care Provider REASON FOR VISIT refill Medications Medication SIG (Take, Route, Fr equency, Duration) Notes Start Date End Date Status oxyCODONE HCl 5 MG 1 tablets Orally janeth ry 4 hours for 14 days 09/27/2024 Active Encounters Encounter Location Date Provider Diagnosis [facility] [address] [place] [address] 09/27/2024 Micheal Craven Radiculopathy, lumb ar region M54.16 Assessments Encounter Date Diagnosis (ICD Code) Assessment Notes Treatment Notes Treatment Clinical Notes Section Notes 09/27/2024 Radiculopathy, lumbar region (ICD-10 - M54.16) Plan Of Treatment Medication Medication Name Sig Start Date Stop Date Notes oxyCODONE HCl 5 MG 1 tablets Orally janeth ry 4 hours for 14 days 09/27/2024 Next Appt Details Provider Name:Micheal Craven, 09:00:00 AM, [address] [place], [address], Progress Notes * Raza RODRIGUEZ LDOB: [birth year] (69 yo M)Acc No.[id number]:09/27/2024 Patient: Raza HUITRON :1955 A ge:69 Y S ex:Male Address:[address] [place] [address], [id number] * Refills Refill oxyCODONE HCl Tablet, 5 MG, Orally, 84 Tablet, 1 tablets, every 4 hours, 14 days, Refills=0 * true * Date: Generated for James crane/Luis Angel/Kofiitting on: 0 09/28/2024 06:53 AM EDT
--- OUTSIDE RECORDS SUMMARY | 2024-09-28 06:53 | XMS_ITS | Encounter Summary ---
Author Organization [facility] Address [address] [place] [address] Care Team Providers Care Professor Of Oceanography Name Role Phone Devon Craven MD Primary Care Provider [phone] Jones Keith Md MD Unavailable Unavailable Source Comments In the event this information is protected by the Federal Confidentiality of Alcohol and Drug AbusePatient Records regulations: The Federal rules restrict any use of the information to criminally investigate or prosecute any alcohol or drug abuse patient.[facility] Encounter Details Date Type Department Care Team (Late st Contact Info) Description 06/29/2024 Patient Msg Cardiology [address] [place] [address] Provider, [facility] Appointment Cancellation Request Social History Tobacco Use Types Packs/Day Years Used Date Smoking Tobacco: Never Smokeless Tobacco: Former Chew Quit: 1999 Alcohol Use Standard Drinks/Week Comments Never 0 (1 standard drink = 0.6 oz pur e alcohol) [facility] Utilities Answer Date Recorded In the past 12 months has e electric, gas, oil, or water company threatened to shut off services in your home? No 08/20/2023 PHQ-2 Answer Date Recorded PHQ-2 score 2 06/14/2024 Hunger Vital Sign Answer Date Recorded Within the past 12 months, y ou worried that your food would run out before you got the money to buy more. Never true 08/20/19 24 Within the past 12 months, t he food you bought just didn't last and you didn't have money to get more. Never true 08/20/2023 PRAPARE - Transportation Answer Date Re corded In the past 12 months, has l ack of transportation kept you from medical appointments or from getting medications? No 08/08 In the past 12 months, has l ack of transportation kept you from meetings, work, or from getting things needed for daily living? No 08/20/2023 Housing Stability Vital Sign Answer Andrews e Recorded In the last 12 months, was t here a time when you were not able to pay the mortgage or rent on time? No 08/20/2023 [address] of [address] Lived in the Last Year Not on f ile 08/20/2023 In the last 12 months, was t here a time when you did not have a steady place to sleep or slept in a half-way (including now)? No 08/20/2023 Area Deprivation Index Answer Date Cole rded National Score (1-100), lower number is lower ri sk 61 08/06/2023 State Score (1-10), lower number is lower risk 4 08/06/2023 Data from: https://www.neighborhoodatlas.medicine.[facility].edu/. Last address used for calculation [address] 08/06/2023 Sex and Gender Information Value Date Recorded Sex Assigned at Male 03/20/2023 4:19 AM EST Legal Sex Male 10:36 AM EST Gender Identity Male 03/20/2023 4:19 AM EST Sexual Orientation Straight 03/20/2023 4: 19 AM EST documented as of this encounter Functional Status * Are you deaf or do you have serious difficulty hearing? Answer Date of Assessment Author No 06/08/2024 3:04 PM Gin Crews, PATRICIA * Are you blind or do you have serious difficulty seeing, even when wearing glasses? Answer Date of Assessment Author No 06/08/2024 3:04 PM Gin Crews, PATRICIA * Do you have serious difficulty walking or climbing stairs? Answer Date of Assessment Author No 06/08/2024 3:04 PM Gin Crews RN * Do you have difficulty dressing or bathing? Answer Date of Assessment Author Yes 06/08/2024 3:04 PM Gin Crews RN * Because of a physical, mental, or emotional condition, do you have difficulty doing errands alone such as visiting a doctor's office or shopping? Answer Date of Assessment Author Yes 06/08/2024 3:04 PM Gin Crews RN documented as of this encounter Mental Status * Because of a physical, mental, or emotional condition, do you have serious difficulty concentrating, remembering, or making decisions? Answer Entry Date Author Yes 06/08/2024 3:04 PM Gin Crews RN documented in this encounter Plan of Treatment Not on file documented as of this encounter Visit Diagnoses Not on filedocumented in this encounter Care Teams Professor Of Oceanography Relationship Specialty Start Date End Date Devon Craven MD PCP - General 05/05/06 Jones Keith Md, Spine Health 09/07/23 documented as of this encounter
--- OUTSIDE RECORDS SUMMARY | 2024-09-28 06:53 | XMS_ITS | Encounter Summary ---
Author Organization [facility] Address [address] [place], [place] [id number] Care Team Providers Care Coke Handling Supervisor Name Role Phone Devon Craven MD Primary Care Provider [phone] Jones Keith Md MD Unavailable Unavailable Source Comments In the event this information is protected by the Federal Confidentiality of Alcohol and Drug AbusePatient Records regulations: The Federal rules restrict any use of the information to criminally investigate or prosecute any alcohol or drug abuse patient.[facility] Encounter Details Date Type Department Care Team (Late st Contact Info) Description 08/06/2023 Patient Msg Pre Anesthesia [address] [place], [place] [id number] Mayelin Long PA-C [address] [place], [place] [id number] Penicilin Allergy Testing Social History Tobacco Use Types Packs/Day Years Used Date Smoking Tobacco: Never Smokeless Tobacco: Former Chew Quit: 1999 Alcohol Use Standard Drinks/Week Comments Never 0 (1 standard drink = 0.6 oz pur e alcohol) PHQ-2 Answer Date Recorded PHQ-2 score 3 04/28/2023 Area Deprivation Index Answer Date Cole rded National Score (1-100), lower number is lower ri sk 61 08/06/2023 State Score (1-10), lower number is lower risk 4 08/06/2023 Data from: https://www.neighborhoodatlas.medicine.[facility].edu/. Last address used for calculation [address] 08/06/2023 Sex and Gender Information Value Date Recorded Sex Assigned at Male 03/20/2023 4:19 AM EST Legal Sex Male 10:36 AM EST Gender Identity Male 03/20/2023 4:19 AM EST Sexual Orientation Straight 03/20/2023 4: 19 AM EST documented as of this encounter Plan of Treatment Not on file documented as of this encounter Visit Diagnoses Not on filedocumented in this encounter Care Teams Coke Handling Supervisor Relationship Specialty Start Date End Date Devon Craven MD PCP - General 05/05/06 Jones Keith Md, MD Spine Health 09/07/23 documented as of this encounter
--- OUTSIDE RECORDS SUMMARY | 2024-09-28 06:53 | XMS_ITS | Encounter Summary ---
Author Organization [facility] Address [address] [place] [address] Care Team Providers Care Drum Carrier Name Role Phone Devon Craven MD Primary Care Provider [phone] Jones Keith Md MD Unavailable Unavailable Source Comments In the event this information is protected by the Federal Confidentiality of Alcohol and Drug AbusePatient Records regulations: The Federal rules restrict any use of the information to criminally investigate or prosecute any alcohol or drug abuse patient.[facility] Encounter Details Date Type Department Care Team (Late st Contact Info) Description 06/01/2024 Patient Msg Spine [place] [address] [place] [address] Provider, [facility] ACTION REQUIRED: Skin Preparation before your surgery Social History Tobacco Use Types Packs/Day Years Used Date Smoking Tobacco: Never Smokeless Tobacco: Former Chew Quit: 1999 Alcohol Use Standard Drinks/Week Comments Never 0 (1 standard drink = 0.6 oz pur e alcohol) [facility] Utilities Answer Date Recorded In the past 12 months has [employer] electric, gas, oil, or water company threatened to shut off services in your home? No 08/20/2023 PHQ-2 Answer Date Recorded PHQ-2 score 2 05/07/2024 Hunger Vital Sign Answer Date Recorded Within [...] place to sleep or slept in a usp (including now)? No 08/20/2023 Area Deprivation Index Answer Date Cole rded National Score (1-100), lower number is lower ri sk 61 08/06/2023 State Score (1-10), lower number is lower risk 4 08/06/2023 Data from: https://www.neighborhoodatlas.medicine.[facility].edu/. Last address used for calculation [address] [...] hearing? Answer Date of Assessment Author No 10/04/2023 11:49 AM Luis Parrish RN * Are you blind or do you have serious difficulty seeing, even when wearing glasses? Answer Date of Assessment Author No 10/04/2023 11:49 AM Luis Parrish RN * Do you have serious difficulty walking or climbing stairs? Answer Date of Assessment Author No 10/04/2023 11:49 AM Luis Parrish RN * Do you have difficulty dressing or bathing? Answer Date of Assessment Author No 10/04/2023 11:49 AM Luis Parrish RN * Because of a physical, mental, or emotional condition, do you have difficulty doing errands alone such as visiting a doctor's office or shopping? Answer Date of Assessment Author No 10/04/2023 11:49 AM Luis Parrish RN documented as of this encounter Mental Status * Because of a physical, mental, or emotional condition, do you have serious difficulty concentrating, remembering, or making decisions? Answer Entry Date Author No 10/04/2023 11:49 AM Luis Parrish RN documented in this encounter Plan of Treatment Not on file documented as of this encounter Visit Diagnoses Not on filedocumented in this encounter Care Teams Drum Carrier Relationship Specialty Start Date End Date Devon Craven MD PCP - General 05/05/06 Jones Keith Md, Spine Health 09/07/23 documented as of this encounter
--- OUTSIDE RECORDS SUMMARY | 2024-09-28 06:53 | XMS_ITS | Encounter Summary ---
Author Organization [facility] Address [address] [place], [place] [id number] Care Team Providers Care Golf Ball Inspector Name Role Phone Devon Craven MD Primary Care Provider [phone] Jones Keith Md MD Unavailable Unavailable Source Comments In the event this information is protected by the Federal Confidentiality of Alcohol and Drug AbusePatient Records regulations: The Federal rules restrict any use of the information to criminally investigate or prosecute any alcohol or drug abuse patient.[facility] Encounter Details Date Type Department Care Team (Late st Contact Info) Description 01/14/2024 [place] [address] Provider, [facility] Actionable Imaging Result Notification Patient Outreach Social History Tobacco Use Types Packs/Day Years Used Date Smoking Tobacco: Never Smokeless Tobacco: Former Chew Quit: 1999 Alcohol Use Standard Drinks/Week Comments Never 0 (1 standard drink = 0.6 oz pur e alcohol) [facility] Utilities Answer Date Recorded In the past 12 months has e electric, gas, oil, or water company threatened to shut off services in your home? No 08/20/2023 PHQ-2 Answer Date Recorded PHQ-2 score 4 11/05/2023 Hunger Vital Sign Answer Date Recorded Within [...] place to sleep or slept in a nursing home (including now)? No 08/20/2023 Area Deprivation Index Answer Date Cole rded National Score (1-100), lower number is lower ri sk 61 08/06/2023 State Score (1-10), lower number is lower risk 4 08/06/2023 Data from: https://www.neighborhoodatlas.medicine.[facility].edu/. Last address used for calculation [address] [...] on filedocumented in this encounter Care Teams Golf Ball Inspector Relationship Specialty Start Date End Date Devon Craven MD PCP - General 05/05/06 Jones Keith Md, Spine Health 09/07/23 documented as of this encounter
--- OUTSIDE RECORDS SUMMARY | 2024-09-28 06:53 | XMS_ITS | Encounter Summary ---
Author Organization [facility] Address [address] [place] [address] Care Team Providers Care Websphere Commerce Consultant Name Role Phone Devon Craven MD Primary Care Provider [phone] Keith Md MD Unavailable Unavailable Source Comments In the event this information is protected by the Federal Confidentiality of Alcohol and Drug AbusePatient Records regulations: The Federal rules restrict any use of the information to criminally investigate or prosecute any alcohol or drug abuse patient.[facility] Encounter Details Date Type Department Care Team (Late st Contact Info) Description 09/18/2023 Patient Msg Spine [place] [address] [place] [address] Provider, Ccf Important Reminder for Preparing Your Skin for Surgery Social History Tobacco Use Types Packs/Day Years Used Date Smoking Tobacco: Never Smokeless Tobacco: Former Chew Quit: 1999 Alcohol Use Standard Drinks/Week Comments Never 0 (1 standard drink = 0.6 oz pur e alcohol) [facility] Utilities Answer Date Recorded In the past 12 months has [employer] electric, gas, oil, or water company threatened to shut off services in your home? No 08/20/2023 PHQ-2 Answer Date Recorded PHQ-2 score 3 04/28/2023 Hunger Vital Sign Answer Date Recorded Within [...] place to sleep or slept in a chcf (including now)? No 08/20/2023 Area Deprivation Index Answer Date Cole rded National Score (1-100), lower number is lower ri sk 61 08/06/2023 State Score (1-10), lower number is lower risk 4 08/06/2023 Data from: https://www.neighborhoodatlas.medicine.[facility].edu/. Last address used for calculation [address] [...] hearing? Answer Date of Assessment Author No 09/10/2023 4:31 PM Yoseph Ritter LPN * Are you blind or do you have serious difficulty seeing, even when wearing glasses? Answer Date of Assessment Author No 09/10/2023 4:31 PM Yoseph Ritter LPN * Do you have serious difficulty walking or climbing stairs? Answer Date of Assessment Author No 09/10/2023 4:31 PM EDYoseph Ellison LPN * Do you have difficulty dressing or bathing? Answer Date of Assessment Author No 09/10/2023 4:31 PM EDYoseph Ellison LPN * Because of a physical, mental, or emotional condition, do you have difficulty doing errands alone such as visiting a doctor's office or shopping? Answer Date of Assessment Author No 09/10/2023 4:31 PM EDYoseph Ellison LPN documented as of this encounter Mental Status * Because of a physical, mental, or emotional condition, do you have serious difficulty concentrating, remembering, or making decisions? Answer Entry Date Author No 09/10/2023 4:31 PM Yoseph Ritter LPN documented in this encounter Plan of Treatment Not on file documented as of this encounter Visit Diagnoses Not on filedocumented in this encounter Care Teams Websphere Commerce Consultant Relationship Specialty Start Date End Date Devon Craven MD PCP - General 05/05/06 Jones Keith Md, Spine Health 09/07/23 documented as of this encounter
--- OUTSIDE RECORDS SUMMARY | 2024-09-28 06:53 | XMS_ITS | Encounter Summary ---
Author Organization [facility] Address [address] [place] [address] Care Team Providers Care Drive Tester Name Role Phone Devon Craven MD Primary Care Provider [phone] Jones Keith Md MD Unavailable Unavailable Source Comments In the event this information is protected by the Federal Confidentiality of Alcohol and Drug AbusePatient Records regulations: The Federal rules restrict any use of the information to criminally investigate or prosecute any alcohol or drug abuse patient.[facility] Encounter Details Date Type Department Care Team (Late st Contact Info) Description 05/06/2024 Patient Msg Spine [place] [address] [place] [address] Provider, Ccf PRE-OP appt are scheduled and PLEASE read all instructions. Social History Tobacco Use Types Packs/Day Years Used Date Smoking Tobacco: Never Smokeless Tobacco: Former Chew Quit: 1999 Alcohol Use Standard Drinks/Week Comments Never 0 (1 standard drink = 0.6 oz pur e alcohol) [facility] Utilities Answer Date Recorded In the past 12 months has [employer] electric, gas, oil, or water company threatened [...] is lower risk 4 08/06/2023 Data from: https://www.neighborhoodatlas.medicine.[facility].edu/. Last address used for calculation [...] on filedocumented in this encounter Care Teams Drive Tester Relationship Specialty Start Date End Date Devon Craven MD PCP - General 05/05/06 Jones Keith Md, Spine Health 09/07/23 documented as of this encounter
--- OUTSIDE RECORDS SUMMARY | 2024-09-28 06:53 | XMS_ITS | Encounter Summary ---
Author Organization [facility] Address [address] [place] [address] Care Team Providers Care Automatic Nailing Machine Feeder Name Role Phone Devon Craven MD Primary Care Provider [phone] Jones Keith Md MD Unavailable Unavailable Source Comments In the event this information is protected by the Federal Confidentiality of Alcohol and Drug AbusePatient Records regulations: The Federal rules restrict any use of the information to criminally investigate or prosecute any alcohol or drug abuse patient.[facility] Encounter Details Date Type Department Care Team (Late st Contact Info) Description 08/11/2023 Patient Msg Spine [place] [address] [place] [address] Provider, Félix Preop Education Class 6/4 @ 2pm Social History Tobacco Use Types Packs/Day Years [...] is lower risk 4 08/06/2023 Data from: https://www.neighborhoodatlas.[facility].edu/. Last address used for calculation [address] [...] on filedocumented in this encounter Care Teams Automatic Nailing Machine Feeder Relationship Specialty Start Date End Date Devon Craven MD PCP - General 05/05/06 Jones Keith Md, MD Spine Health 09/07/23 documented as of this encounter
--- OUTSIDE RECORDS SUMMARY | 2024-09-28 06:53 | XMS_ITS | Encounter Summary ---
Author Organization [facility] Address [address] [place] [address] Care Team Providers Care Extension Clerk Name Role Phone Devon Craven MD Primary Care Provider [phone] Jones Keith Md MD Unavailable Unavailable Source Comments In the event this information is protected by the Federal Confidentiality of Alcohol and Drug AbusePatient Records regulations: The Federal rules restrict any use of the information to criminally investigate or prosecute any alcohol or drug abuse patient.[facility] Encounter Details Date Type Department Care Team (Late st Contact Info) Description 08/29/2023 Get Medical Advice Spine [place] [address] [place] [address] Vivian Collins PA-C [address] [place] [address] Back brace Social History Tobacco Use Types Packs/Day Years Used Date Smoking Tobacco: Never Smokeless Tobacco: Former Chew Quit: 1999 Alcohol Use Standard Drinks/Week Comments Never 0 (1 standard drink = 0.6 oz pur e alcohol) [facility] Utilities Answer Date Recorded In the past 12 months has th e electric, gas, oil, or water company [...] place to sleep or slept in a snf (including now)? No 08/20/2023 Area Deprivation Index Answer Date Cole rded National Score (1-100), lower number is lower ri sk 61 08/06/2023 State Score (1-10), lower number is lower risk 4 08/06/2023 Data from: https://www.neighborhoodatlas.medicine.[facility].edu/. Last address used for calculation [...] on filedocumented in this encounter Care Teams Extension Clerk Relationship Specialty Start Date End Date Devon Craven MD PCP - General 05/05/06 Jones Keith Md, Spine Health 09/07/23 documented as of this encounter
--- OUTSIDE RECORDS SUMMARY | 2024-09-28 06:53 | XMS_ITS | Encounter Summary ---
Author Organization [facility] Address [address] [place] [address] Care Team Providers Care [employer] Name Role Phone Devon Craven MD Primary Care Provider [phone] Jones Keith Md MD Unavailable Unavailable Source Comments In the event this information is protected by the Federal Confidentiality of Alcohol and Drug AbusePatient Records regulations: The Federal rules restrict any use of the information to criminally investigate or prosecute any alcohol or drug abuse patient.[facility] Encounter Details Date Type Department Care Team (Late st Contact Info) Description 02/26/2024 Patient Msg Spine [place] [address] [place] [address] Vivian Collins PA-C [address] [place] [address] MRI Social History Tobacco Use Types Packs/Day Years Used Date Smoking Tobacco: Never Smokeless Tobacco: Former Chew Quit: 1999 Alcohol Use Standard Drinks/Week Comments Never 0 (1 standard drink = 0.6 oz pur e alcohol) [facility] Utilities Answer Date Recorded In the [...] place to sleep or slept in a retirement (including now)? No 08/20/2023 Area Deprivation Index Answer Date Cole rded National Score (1-100), lower number is lower ri sk 61 08/06/2023 State Score (1-10), lower number is lower risk 4 08/06/2023 Data from: https://www.neighborhoodatlas.medicine.[facility].edu/. Last address used for calculation [address] [...] on filedocumented in this encounter Care Teams [employer] Relationship Specialty Start Date End Date Devon Craven MD PCP - General 05/05/06 Jones Keith Md, Spine Health 09/07/23 documented as of this encounter
--- OUTSIDE RECORDS SUMMARY | 2024-09-28 06:53 | XMS_ITS | Encounter Summary ---
Author Organization [facility] Address [address] [place] [address] Care Team Providers Care Piping Supervisor Name Role Phone Devon Craven MD Primary Care Provider [phone] Encounter Details Date Type Department Care Team (Latest Contact Info) Description 09/17/2024 Travel Social History Tobacco Use Types Packs/Day Years Used Date Smoking Tobacco: Never Smokeless Tobacco: Never Alcohol Use Standard Drinks/Week Comments Never 0 (1 standard drink = 0.6 oz pur e alcohol) Sex and Gender Information Value Date Recorded Sex Assigned at Not on file Legal Sex Male 7:12 PM EDT Gender Identity Not on file Sexual Orientation Not on file documented as of this encounter Plan of Treatment Upcoming Encounters Date Type Department Care Team (Late st Contact Info) Description 10/06/2024 4:15 PM EDT Office Visit [facility] [address] [facility] [address] [place] [address] Mahamed Jeter, DPM [address] [facility] [address] [place] [address] documented as of this encounter Visit Diagnoses Not on filedocumented in this encounter Care Teams Piping Supervisor Relationship Specialty Start Date End Date Devon Craven MD [address] [place] [address] PCP - General Family Medicine 09/08/24 documented as of this encounter
--- OUTSIDE RECORDS SUMMARY | 2024-09-28 06:53 | XMS_ITS | Encounter Summary ---
Author Organization [facility] Address [address] [place] [address] Care Team Providers Care Policy Writer Name Role Phone Devon Craven MD Primary Care Provider [phone] Jones Keith Md MD Unavailable Unavailable Source Comments In the event this information is protected by the Federal Confidentiality of Alcohol and Drug AbusePatient Records regulations: The Federal rules restrict any use of the information to criminally investigate or prosecute any alcohol or drug abuse patient.[facility] Encounter Details Date Type Department Care Team (Late st Contact Info) Description 06/06/2023 Get Medical Advice Spine [place] [address] [place] [address] Jones Keith MD [address] [place] [address] Surgery schedule Social History Tobacco Use Types Packs/Day Years Used Date Smoking Tobacco: Never Smokeless Tobacco: Former Chew Quit: 1999 Alcohol Use Standard Drinks/Week Comments Not Asked 0 (1 standard drink = 0.6 oz pur e alcohol) PHQ-2 Answer Date Recorded PHQ-2 score 3 04/28/2023 Area Deprivation Index Answer Date Cole rded National Score (1-100), lower number is lower ri sk 61 04/30/2023 State Score (1-10), lower number is lower risk 4 04/30/2023 Data from: https://www.neighborhoodatlas.medicine.[facility].edu/. Last address used for calculation [address] 04/30/2023 Sex and Gender Information Value Date Recorded Sex Assigned at Male 03/20/2023 4:19 AM EST Legal Sex Male 10:36 AM EST Gender Identity Male 03/20/2023 4:19 AM EST Sexual Orientation Straight 03/20/2023 4: 19 AM EST documented as of this encounter Plan of Treatment Not on file documented as of this encounter Visit Diagnoses Not on filedocumented in this encounter Care Teams Policy Writer Relationship Specialty Start Date End Date Devon Craven MD PCP - General 05/05/06 Jones Keith Md, Spine Health 09/07/23 documented as of this encounter
--- OUTSIDE RECORDS SUMMARY | 2024-09-28 06:53 | XMS_ITS | Encounter Summary ---
Author Organization [facility] Address [address] [place] [address] Care Team Providers Care Rewinder Operator Helper Name Role Phone Devon Craven MD Primary Care Provider [phone] Jones Keith Md MD Unavailable Unavailable Source Comments In the event this information is protected by the Federal Confidentiality of Alcohol and Drug AbusePatient Records regulations: The Federal rules restrict any use of the information to criminally investigate or prosecute any alcohol or drug abuse patient.[facility] Encounter Details Date Type Department Care Team (Late st Contact Info) Description 06/29/2024 Patient Msg Cardiology [address] [place] [address] Provider, Ccf Appointment Cancellation Request Social History Tobacco Use Types Packs/Day Years Used Date Smoking Tobacco: Never Smokeless Tobacco: Former Chew Quit: 1999 Alcohol Use Standard Drinks/Week Comments Never 0 (1 standard drink = 0.6 oz pur e alcohol) [facility] Utilities Answer Date Recorded In the past [...] place to sleep or slept in a mcc (including now)? No 08/20/2023 Area Deprivation Index Answer Date Cole rded National Score (1-100), lower number is lower ri sk 61 08/06/2023 State Score (1-10), lower number is lower risk 4 08/06/2023 Data from: https://www.neighborhoodatlas.medicine.[facility].edu/. Last address used for calculation [address] [...] on filedocumented in this encounter Care Teams Rewinder Operator Helper Relationship Specialty Start Date End Date Devon Craven MD PCP - General 05/05/06 Jones Keith Md, Spine Health 09/07/23 documented as of this encounter
--- OUTSIDE RECORDS SUMMARY | 2024-09-28 06:53 | XMS_ITS | Encounter Summary ---
Author Organization [facility] Address [address] [place] [address] Care Team Providers Care Nuclear Technologist Name Role Phone Devon Craven MD Primary Care Provider [phone] Jones Keith Md MD Unavailable Unavailable Source Comments In the event this information is protected by the Federal Confidentiality of Alcohol and Drug AbusePatient Records regulations: The Federal rules restrict any use of the information to criminally investigate or prosecute any alcohol or drug abuse patient.[facility] Encounter Details Date Type Department Care Team (Late st Contact Info) Description 10/01/2023 Patient Msg Spine [place] [address] [place] [address] Provider, Ccf ACTION REQUIRED: Skin Preparation before your surgery Social History Tobacco Use Types Packs/Day Years Used Date Smoking Tobacco: Never Smokeless Tobacco: Former Chew Quit: 1999 Alcohol Use Standard Drinks/Week Comments Never 0 (1 standard drink = 0.6 oz pur e alcohol) [facility] Utilities Answer Date Recorded In the past 12 months has [employer] electric, gas, oil, or water company threatened to shut off services in your home? No 08/20/2023 PHQ-2 Answer Date Recorded PHQ-2 score 2 09/23/2023 Hunger Vital Sign Answer Date Recorded Within [...] place to sleep or slept in a [place] [facility] facility (including now)? No 08/20/2023 Area Deprivation Index Answer Date Cole rded National Score (1-100), lower number is lower ri sk 61 08/06/2023 State Score (1-10), lower number is lower risk 4 08/06/2023 Data from: https://www.neighborhoodatlas.medicine.[facility].edu/. Last address used for calculation [address] [...] on filedocumented in this encounter Care Teams Nuclear Technologist Relationship Specialty Start Date End Date Devon Craven MD PCP - General 05/05/06 Jones Keith Md, Spine Health 09/07/23 documented as of this encounter
--- OUTSIDE RECORDS SUMMARY | 2024-09-28 06:53 | XMS_ITS | Encounter Summary ---
Author Organization [facility] Address [address] [place] [address] Care Team Providers Care Amalgamator Name Role Phone Devon Craven MD Primary Care Provider [phone] Jones Keith Md MD Unavailable Unavailable Source Comments In the event this information is protected by the Federal Confidentiality of Alcohol and Drug AbusePatient Records regulations: The Federal rules restrict any use of the information to criminally investigate or prosecute any alcohol or drug abuse patient.[facility] Encounter Details Date Type Department Care Team (Late st Contact Info) Description 02/26/2024 Patient Msg Spine [place] [address] [place] [address] Vivian Collins PA-C [address] [place] [address] Appointment Request Social History Tobacco Use Types Packs/Day Years Used Date Smoking Tobacco: Never Smokeless Tobacco: Former Chew Quit: 1999 Alcohol Use Standard Drinks/Week Comments Never 0 (1 standard drink = 0.6 oz pur e alcohol) [facility] Utilities Answer Date Recorded In the [...] place to sleep or slept in a prison (including now)? No 08/20/2023 Area Deprivation Index Answer Date Cole rded National Score (1-100), lower number is lower ri sk 61 08/06/2023 State Score (1-10), lower number is lower risk 4 08/06/2023 Data from: https://www.neighborhoodatlas.medicine.[facility].edu/. Last address used for calculation [address] [...] on filedocumented in this encounter Care Teams Amalgamator Relationship Specialty Start Date End Date Devon Craven MD PCP - General 05/05/06 Jones Keith Md, Spine Health 09/07/23 documented as of this encounter
--- OUTSIDE RECORDS SUMMARY | 2024-09-28 06:53 | XMS_ITS | Encounter Summary ---
Author Organization [facility] Address [address] [place] [address] Care Team Providers Care Meter And Service Line Inspector Name Role Phone Devon Craven MD Primary Care Provider [phone] Jones Keith Md MD Unavailable Unavailable Source Comments In the event this information is protected by the Federal Confidentiality of Alcohol and Drug AbusePatient Records regulations: The Federal rules restrict any use of the information to criminally investigate or prosecute any alcohol or drug abuse patient.[facility] Reason for Visit * Reason Onset Date Comments Refill Request 11/19/2023 Encounter Details Date Type Department Care Team (Late st Contact Info) Description 11/19/2023 Refill Spine [place] [address] [place] [id number] Vivian Collins PA-C [address] [place] [address] Refill Request Social History Tobacco Use Types Packs/Day Years Used Date Smoking Tobacco: Never Smokeless Tobacco: Former Chew Quit: 1999 Alcohol Use Standard Drinks/Week Comments Never 0 (1 standard drink = 0.6 oz pur e alcohol) [facility] Utilities Answer Date Recorded In the past [...] place to sleep or slept in a halfway (including now)? No 08/20/2023 Area Deprivation Index Answer Date Cole rded National Score (1-100), lower number is lower ri sk 61 08/06/2023 State Score (1-10), lower number is lower risk 4 08/06/2023 Data from: https://www.neighborhoodatlas.medicine.[facility].edu/. Last address used for calculation [address] [...] of Assessment Author No 10/04/2023 11:49 AM EDT Tayer, K jenny, RN * Are you blind or do [...] Luis Parrish RN documented in this encounter Miscellaneous Notes * Telephone Encounter - Melody Castaneda RN - 11/19/2023 12:25 PM EDT Attempted to return call to patient. When he saw Dr Keith last week he was advised that was his last refill. Left detailed message to return call with any further questions. documented in this encounter Plan of Treatment Not on file documented as of this encounter Visit Diagnoses Diagnosis Post-op pain Other acute postoperative pain documented in this encounter Care Teams Meter And Service Line Inspector Relationship Specialty Start Date End Date Devon Craven MD PCP - General 05/05/06 Jones Keith Md, MD Spine Health 09/07/23 documented as of this encounter
--- OUTSIDE RECORDS SUMMARY | 2024-09-28 06:53 | XMS_ITS | Encounter Summary ---
Author Organization [facility] Address [address] [place] [address] Care Team Providers Care Documentation Engineer Name Role Phone Devon Craven MD Primary Care Provider [phone] Jones Keith Md MD Unavailable Unavailable Source Comments In the event this information is protected by the Federal Confidentiality of Alcohol and Drug AbusePatient Records regulations: The Federal rules restrict any use of the information to criminally investigate or prosecute any alcohol or drug abuse patient.[facility] Encounter Details Date Type Department Care Team (Late st Contact Info) Description 06/29/2024 Patient Msg Cardiology [address] [place] [address] Maco Tse MD [address] [place] [address] Appointment Cancellation Request Social History Tobacco Use Types Packs/Day Years Used Date Smoking Tobacco: Never Smokeless Tobacco: Former Chew Quit: 1999 Alcohol Use Standard Drinks/Week Comments Never 0 (1 standard drink = 0.6 oz pur e alcohol) [facility] Utilities Answer Date Recorded In the [...] is lower risk 4 08/06/2023 Data from: https://www.neighborhoodatlas.medicine.[facility].edu/. Last address used for calculation [...] 06/08/2024 3:04 PM Gin Crews RN * Are you blind or do you have serious difficulty seeing, even when wearing glasses? Answer Date of Assessment Author No 06/08/2024 3:04 PM Gin Crews RN * Do you have serious difficulty [...] on filedocumented in this encounter Care Teams Documentation Engineer Relationship Specialty Start Date End Date Devon Craven MD PCP - General 05/05/06 Jones Keith Md, MD Spine Health 09/07/23 documented as of this encounter
--- OUTSIDE RECORDS SUMMARY | 2024-09-28 06:53 | XMS_ITS | Clinical Summary ---
Author Organization [facility] Address [address] [place] [address] Phone Care Team Providers Care Sack Filler Name Role Phone Devon Craven MD Primary Care Provider [phone] Social History Tobacco Use Types Packs/Day Years Used Date Smoking Tobacco: Never Assessed Sex and Gender Information Value Date Recorded Sex Assigned at Not on file Legal Sex Male 11:16 PM EST Gender Identity Not on file Sexual Orientation Not on file Plan of Treatment Health Maintenance Due Date Last Done Comments CT Colonography 1957 Colonoscopy 1957 Colorectal Cancer Screening 1957 FIT-DNA (Cologuard) 1957 FIT 1957 Lipid Panel 1957 Sigmoidoscopy 1957 Yearly Adult Physical 1957 MMR Vaccines (1 of 1 - Stand justino series) 1958 Hepatitis C Screening 1975 DTaP/Tdap/Td Vaccines (1 - Tdap) 1979 Pneumococcal Vaccine (1 of 1 - PCV) 2007 Zoster Vaccines (1 of 2) 2007 COVID-19 Vaccine ( - 2023-2 5 season) 2023 Influenza Vaccine (#1) 2024 RSV High Risk: (Elderly (60+ ) or Population) (1 - 1-dose 75+ series) 2032 HIB Vaccines Aged Out No longer eligi ble based on patient's age to complete this topic HPV Vaccines Aged Out No longer eligi ble based on patient's age to complete this topic Hepatitis A Vaccines Aged Out No long er eligible based on patient's age to complete this topic Hepatitis B Vaccines Aged Out No long er eligible based on patient's age to complete this topic IPV Vaccines Aged Out No longer eligi ble based on patient's age to complete this topic Meningococcal Vaccine Aged Out No earline lilia eligible based on patient's age to complete this topic Rotavirus Vaccines Aged Out No longer eligible based on patient's age to complete this topic Care Teams Sack Filler Relationship Specialty Start Date End Date Devon Craven MD [address] [id number] PCP - General 05/03/11
--- OUTSIDE RECORDS SUMMARY | 2024-09-28 06:53 | XMS_ITS | Encounter Summary ---
Author Organization [facility] Address [address] [place] [address] Care Team Providers Care Local City Driver Name Role Phone Devon Craven MD Primary Care Provider [phone] Jones Keith Md MD Unavailable Unavailable Source Comments In the event this information is protected by the Federal Confidentiality of Alcohol and Drug AbusePatient Records regulations: The Federal rules restrict any use of the information to criminally investigate or prosecute any alcohol or drug abuse patient.[facility] Encounter Details Date Type Department Care Team (Late st Contact Info) Description 05/19/2024 Patient Msg [facility] [place] [address] [place] [address] Provider, [facility] Important Reminder for Preparing Your Skin for Surgery Social History Tobacco Use Types Packs/Day Years Used Date Smoking Tobacco: Never Smokeless Tobacco: Former Chew Quit: 1999 Alcohol Use Standard Drinks/Week Comments Never 0 (1 standard drink = 0.6 oz pur e alcohol) [facility] Utilities Answer Date Recorded In the past 12 months has Exec electric, gas, oil, or water company threatened [...] is lower risk 4 08/06/2023 Data from: https://www.neighborhoodatlas.medicine.[facility].edu/. Last address used for calculation [address] [...] on filedocumented in this encounter Care Teams Local City Driver Relationship Specialty Start Date End Date Devon Craven MD PCP - General 05/05/06 Jones Keith Md, Spine Health 09/07/23 documented as of this encounter
--- OUTSIDE RECORDS SUMMARY | 2024-09-28 06:53 | XMS_ITS | Encounter Summary ---
Author Organization [facility] Address [address] [place] [address] Care Team Providers Care Dialysis Tech Name Role Phone Devon Craven MD Primary Care Provider [phone] Reason for Visit * Reason Onset Date Comments Lab results 09/18/2024 Encounter Details Date Type Department Care Team (Late st Contact Info) Description 09/18/2024 Results Follow-Up [facility] [address] [facility] [address] [place] [phone] Mahamed Jeter, DPM [address] [facility] [address] [place] [address] Social History Tobacco Use Types Packs/Day Years [...] on file documented as of this encounter Miscellaneous Notes * Telephone Encounter - RT. Michael Keating - 09/20/2024 10:26 AM EDT LM on patient's voice mail. Also, sent a [employer] message. * Telephone Encounter - RT. Michael Keating - 09/20/2024 10:26 AM EDT ----- Message from Dr. Mahamed Jeter sent at 09/18/2024 3:57 PM EDT ----- Please inform patient that all labs look good. ----- Message ----- From: Stormy, [facility] Lab Results In Sent: 09/18/2024 6:07 AM EDT To: Mahamed Jeter DPM * Result Encounter Note - Mahamed Jeter DPM - 09/18/2024 3:57 PM EDT Please inform patient that all labs look good. documented in this encounter Plan of Treatment Upcoming Encounters Date Type Department Care Team (Late st Contact Info) Description 10/06/2024 4:15 PM EDT Office Visit [facility] [address] [address] [place] [phone] Mahamed Jeter DPM [address] [place] [address] [place] [address] documented as of this encounter Visit Diagnoses Not on filedocumented in this encounter Care Teams Dialysis Tech Relationship Specialty Start Date End Date Devon Craven MD [address] [place] [phone] PCP - General Family Medicine 09/08/24 documented as of this encounter
--- OUTSIDE RECORDS SUMMARY | 2024-09-28 06:53 | XMS_ITS | Encounter Summary ---
Author Organization [facility] Address [address] [place] [address] Care Team Providers Care Hoop Maker Machine Name Role Phone Devon Craven MD Primary Care Provider [phone] Keith Md MD Unavailable Unavailable Source Comments In the event this information is protected by the Federal Confidentiality of Alcohol and Drug AbusePatient Records regulations: The Federal rules restrict any use of the information to criminally investigate or prosecute any alcohol or drug abuse patient.[facility] Reason for Visit * Reason Onset Date Comments Refill Request 10/23/2023 Encounter Details Date Type Department Care Team (Late st Contact Info) Description 10/23/2023 Refill [facility] [address] [phone] Vivian Collins PA-C [address] [place] [address] Refill Request Social History Tobacco Use Types Packs/Day Years Used Date Smoking Tobacco: Never Smokeless Tobacco: Former Chew Quit: 1999 Alcohol Use Standard Drinks/Week Comments Never 0 (1 standard drink = 0.6 oz pur e alcohol) [facility] Utilities Answer Date Recorded In the [...] place to sleep or slept in a fdc (including now)? No 08/20/2023 Area Deprivation Index Answer Date Cole rded National Score (1-100), lower number is lower ri sk 61 08/06/2023 State Score (1-10), lower number is lower risk 4 08/06/2023 Data from: https://www.neighborhoodatlas.medicine.[facility].edu/. Last address used for calculation [address] [...] Assessment Author No 10/04/2023 11:49 AM EDT Luis Vivas RN * Do you have serious difficulty walking or climbing stairs? Answer Date of Assessment Author No 10/04/2023 11:49 AM Luis Parrish RN * Do you have difficulty dressing or bathing? Answer Date of Assessment Author No 10/04/2023 11:49 AM EDT Luis Vivas RN * Because of a physical, mental, [...] Telephone Encounter - Melody Castaneda RN - 10/23/2023 10:39 AM EDT Already filled [place] documented in this encounter Plan of Treatment Not on file documented as of this encounter Visit Diagnoses Diagnosis Post-op pain Other acute postoperative pain documented in this encounter Care Teams Hoop Maker Machine Relationship Specialty Start Date End Date Devon Craven MD PCP - General 05/05/06 Jones Keith Md, Spine Health 09/07/23 documented as of this encounter
--- OUTSIDE RECORDS SUMMARY | 2024-09-28 06:53 | XMS_ITS | Clinical Summary ---
Author Organization [facility] Address [address] [place] [address] Care Team Providers Care Scow Derrick Operator Name Role Phone Unavailable Primary Care Provider Unavailabl e Social History Tobacco Use Types Packs/Day Years Used Date Smoking Tobacco: Never Assessed Sex and Gender Information Value Date Recorded Sex Assigned at Not on file Legal Sex Male 11:07 PM EDT Gender Identity Not on file Sexual Orientation Not on file Last Filed Vital Signs Vital Sign Reading Time Taken Comments Blood Pressure 128/78 05/30/2020 8:55 AM EDT Pulse 58 05/30/2020 8:54 AM EDT Temperature - - Respiratory Rate - - Oxygen Saturation 98% 05/30/2020 8:54 AM EDT Inhaled Oxygen Concentration - - Weight 113 kg (249 lb) 06/27/2020 10:24 AM EDT Height 182.9 cm (6') 06/27/2020 10:21 AM EDT Body Mass Index 33.77 06/27/2020 10:21 AM EDT Plan of Treatment Not on file
--- OUTSIDE RECORDS SUMMARY | 2024-09-28 06:53 | XMS_ITS | Encounter Summary ---
Author Organization [facility] Address [address] [place] [address] Care Team Providers Care Computer Systems Auditor Name Role Phone Devon Craven MD Primary Care Provider [phone] Reason for Visit * Reason Onset Date Comments Complete 09-17-2024 office note for Smita 0 09/27/2024 Encounter Details Date Type Department Care Team (Late st Contact Info) Description 09/27/2024 Telephone [facility] [address] [place] [address] [place] [phone] [place] RT. R Complete 09-17-2024 office note for Smita Social History Tobacco Use Types Packs/Day Years [...] Telephone Encounter - RT. Michael Keating - 09/27/2024 10:44 AM EDT Smita needs patient's 09-17-2024 office notes so they can do precert for his brace. Please complete note so I can fax it to them. FAX # [phone]. Thanks. documented in this encounter Plan of Treatment Upcoming Encounters Date Type Department Care Team (Late st Contact Info) Description 10/06/2024 4:15 PM EDT Office Visit [facility] [address] [facility] [address] [place] [phone] Mahamed Jeter DPM [address] [facility] [address] [place] [address] documented as of this encounter Visit Diagnoses Not on filedocumented in this encounter Care Teams Computer Systems Auditor Relationship Specialty Start Date End Date Devon Craven MD [address] [place] [address] PCP - General Family Medicine 09/08/24 documented as of this encounter
--- OUTSIDE RECORDS SUMMARY | 2024-09-28 06:53 | XMS_ITS | Patient Health Record ---
Author Organization [facility] in [place] Address [address] [place] [address] Care Team Providers Care Medical Assistant Dermatology Name Role Phone Micheal Cain Primary Care Provider Allergies Allergen (clinical drug ingredient) Drug/Non Drug Allergy documented on EMR Reaction Allergy Type Onset Date Status methocarbamol Robaxin Unknown Drug Allergy Act samy Penicillin hives Drug Allergy Active Results Component Value Reference Range Notes INSULIN Reviewed date:10/19/2023 10:23:04 AM Interpretation: Performing Lab: Notes/Report: [facility] , Insulin 13.1 2.6-24.9 uIU/mL Microbiology Lab Analyst: Scout Ludwig PhD, Phone: [phone] Performed at: [address] [id number] Performing Lab: see note - [facility] LB XR ankle LT min 3V Reviewed date:05/03/2024 08:28:40 PM Interpretation: Performing Lab: Notes/Report: Source Facility: [place] [address] [place] [address] XRay Report Signed Patient: RAZA RODRIGUEZ MR#: [id number] : 1955 Acct:[id number] Age/Sex: 69 / M ADM Date: 05/03/24 Loc: RAD Attending Dr: Ester Cain M.D. Ordering Physician: Ester Cain M.D. Date of Service: 05/03/24 Procedure(s): XR ankle LT min 3V Accession Number(s): [id number] cc: Ester Cain M.D. [address] [address] Patient Name: RAZA RODRIGUEZ MRN: [id number] date: 1955 Sex: M Assigned Patient Location: [facility] Current Patient Location: [facility] Accession/Order Number: [id number] Exam Date: 05/03/2024 16:35 Report Date: 05/03/2024 16:41 At the request of: ESTER CAIN MD Procedure: XR ankle LT min 3V LEFT ANKLE - 3 views CLINICAL DATA: Patient fell 2 weeks ago and has continued medial left ankle pain. COMPARISON: None AP, lateral and oblique views were obtained. There is question of a subtle bony spicule along the tip of the medial malleolus. An avulsion injury is not completely excluded however there is no associated asymmetric soft tissue swelling. The remaining bony structures are intact. No dislocation is seen. Atherosclerotic disease is noted. XR/XR ankle LT min 3V IMPRESSION: EQUIVOCAL AVULSION INJURY AT THE TIP OF THE MEDIAL MALLEOLUS. FOCAL CLINICAL CORRELATION IS SUGGESTED. Impression dictated by: Charlene Souza M.D.05/03/2024 4:41 PM Dictation Location: [place] [address] Electronically authenticated by: [id number] Y Date: 05/03/2024 16:41 Dictated By: Charlene Souza M.D. Signed By: 05/03/241643 DD/ 40 TD/TT: Floors Buffer: The [address] [address] XRay Report Signed Patient: MARSHA RODRIGUEZ MR#: [id number] : 1955 Acct:[id number] Age/Sex: 69 / M ADM Date: 05/03/24 Loc: RAD Attending Dr: Saeed Cain M.D. Ordering Physician: Ester Cain M.D. Date of Service: 05/03/24 Procedure(s): XR ank le LT min 3V Accession Number(s): [id number] cc: Ester Cain M.D. The [place] [id number] Patient Name: RAZA RODRIGUEZ MRN: [id number] date: 1955 Sex: M Assigned Patient Location: RAD Current Patient Location: RAD Accession/Order Numb er: [id number] Exam Date: 05/03/2024 16:35 Report Date: 05/03/2024 16:41 At the request of: ESTER CAIN MD Procedure: XR ankle LT min 3V LEFT ANKLE - 3 views CLINICAL DATA: Patie nt fell 2 weeks ago and has continued medial left ankle pain. COMPARISON: None AP, lateral and obli que views were obtained. There is question of a subtle bony spicule along t he tip of the medial malleolus. An avulsion injury is not completely excluded however there is no associated asymmetric soft tissue swelling. The remain ing bony structures are intact. No dislocation is seen. Atherosclerotic dise ase is noted. XR/XR ankle LT min 3V IMPRESSION: EQUIVOCAL AVULSION INJURY AT THE TIP OF THE MEDIAL MALLEOLUS. FOCAL CLINICAL CORRELATION IS SUGGESTED. Impression dictated by: Charlene Souza M.D.05/03/2024 4:41 PM Dictation Location: [place] [address] Electronically authenticated by: [id number] Y Date: 05/03/2024 16:41 Dictated By: Charlene Souza M.D. Signed By: 05/03/24 1644 DD/ 40 TD/TT: Floors Buffer: TSH Reviewed date:10/16/2023 06:12:21 PM Interpretation: Performing Lab: Notes/Report: [facility] , Thyroid Stimulating Hormone 1.293 0.358-3.740 uIU/mL Performing Lab: see note ML - [facility] LB T4 Reviewed date:10/16/2023 06:12:21 PM Interpretation: Performing Lab: Notes/Report: [facility] , T4 Thyroxine 5.20 4.50-12.10 ug/dL Performing Lab: see note ML - [facility] LB PROF 14(COMP METB) Reviewed date:10/16/2023 06:12:21 PM Interpretation: Performing Lab: Notes/Report: [facility] , Sodium 142 136-145 mmol/L Potassium 4.3 3.5-5.1 mmol/L Chloride 105 98-107 mmol/L Carbon Dioxide 29.5 21.0-32.0 mmol/L Anion Gap 11.8 Glucose 102 74-106 mg/dL Blood Urea Nitrogen 18.0 7.0-18.0 mg/dL Creatinine 0.95 0.70-1.30 mg/dL Estimated GFR ( Eugenie >60 >=60 Estimated GFR (Non- Gracie >60 >=60 BUN Creatinine Ratio 18.9 Calcium 9.5 8.5-10.1 mg/dL Bilirubin Total 0.7 0.2-1.0 mg/dL Aspartate Amino Transferase 22 15-37 U/L Alanine Aminotransferase 32 16-63 U/L Alkaline Phosphatase 89 46-116 U/L Total Protein 6.4 6.4-8.2 g/dL Albumin Level 3.5 3.4-5.0 g/dL Globulin 2.9 Albumin Globulin Ratio 1.2 Performing Lab: see note ML - [facility] LB GLYCOHEMOGLOBIN A1C Reviewed date:10/16/2023 06:12:21 PM Interpretation: Performing Lab: Notes/Report: [facility] , Glycohemoglobin A1C 4.8 4.5-6.2 % ADA RECOMMENDED LIMIT 4.0 - 6.0 ADA THERAPEUTIC TARGET < 7.0 ACTION SUGGESTED > 7.0 Estimated Average Glucose 91 Performing Lab: see note ML - [facility] LB FREE T3 Reviewed date:10/16/2023 06:12:21 PM Interpretation: Performing Lab: Notes/Report: [facility] , Free T3 2.59 2.18-3.98 pg/mL Performing Lab: see note ML - [facility] LB CBC AUTO DIFF Reviewed date:10/16/2023 06:12:21 PM Interpretation: Performing Lab: Notes/Report: [facility] , White Blood Count 9.1 4.0-11.0 10 3/uL Red Blood Count 4.06 4.70-6.10 10 6/uL Hemoglobin 13.2 14.0-18.0 g/dL Hematocrit 39.3 42.0-54.0 % Mean Corpuscular Volume 96.8 80.0-94.0 fL Mean Corpuscular Hemoglobin 32.5 25.9-34.0 pg Mean Corpuscular HGB Conc 33.6 29.9-35.2 g/dL Red Cell Distribution Width 11.9 11.0-15.0 % Platelet Count 337 150-450 10 3/uL Mean Platelet Volume 9.6 9.5-13.5 fL Neutrophils Percent Auto 60.8 43.0-75.0 % Lymphocytes Percent Auto 27.6 20.5-60.0 % Monocytes Percent Auto 8.7 1.7-12.0 % Eosinophils Percent Auto 2.0 0.9-7.0 % Basophils Percent Auto 0.5 0.2-2.0 % Immature Granulocytes Pct Auto 0.4 0.0-0.5 % Neutrophils Absolute Auto 5.5 1.4-6.5 10 3/uL Lymphocytes Absolute Auto 2.5 1.2-3.8 10 3/uL Monocytes Absolute Auto 0.8 0.3-0.8 10 3/uL Eosinophils Absolute Auto 0.2 0.0-0.7 10 3/uL Basophils Absolute Auto 0.1 0.0-0.1 10 3/uL Immature Granulocytes Abs Auto 0.04 0.00-0.03 10 3/uL Performing Lab: see note ML - [facility] LB LIPID PROFILE Reviewed date:12/09/2023 07:13:27 PM Interpretation: Performing Lab: Notes/Report: [facility] , Triglycerides 79 <=150 mg/dL Cholesterol 163 <=200 mg/dL HDL Cholesterol 54 40-60 mg/dL <40 mg/dl - HIGH CARDIOVASCULAR RISK > or =60 mg/dl - LOW CARDIOVASCULAR RISK LDL Cholesterol Calculated 93.2 100-129 mg/dl NEAR OR ABOVE OPTIMAL <100 mg/dl OPTIMAL 160-189 mg/dl HIGH >190 mg/dl VERY HIGH 130-159 mg/dl BORDERLINE HIGH VLDL CHOLESTEROL 15.8 Chol HDL Ratio 3.0 >11.0 HIGH RISK 7.1 - 11.0 MODERATE RISK 4.4 - 7.1 AVERAGE RISK 3.3 - 4.4 LOW RISK Performing Lab: see note ML - [facility] LB BNP Reviewed date:07/06/2024 12:21:03 PM Interpretation: Performing Lab: Notes/Report: [facility] , NT Pro B Type Natriuretic Pept 226.0 <=900.0 pg/mL Performing Lab: see note ML - [facility] LB Troponin I High Sensitivity Reviewed date:07/06/2024 12:21:03 PM Interpretation: Performing Lab: Notes/Report: [facility] , Troponin I High Sensitivity 10.0 4.0-76.1 pg/mL USED IN ISOLATION BUT SHOULD BE INTERPRETED IN CONJUNCTION WITH OTHER DIAGNOSTIC AND CLINICAL INFORMATION. CUT-OFF POINTS HAVE BEEN ESTABLISHED BASED ON THE FOURTH UNIVERSAL DEFINITION OF MYOCARDIAL INFARCTION. THE UPPER NOTE: HIGH-SENSITIVITY TROPONIN ASSAY IS NOT INTENDED TO BE DIAGNOSIS. HAS BEEN CONFIRMED THE DECISION THRESHOLD FOR IA 99TH PERCENTILE = 76.2 PG/ML PERCENTILE OF cTnI DISTRIBUTION IN A REFERENCE POPULATION, REFERENCE LIMIT (URL) OF TROPONIN, DEFINED THE 99TH Performing Lab: see note ML - [facility] LB TSH Reviewed date:07/06/2024 12:21:03 PM Interpretation: Performing Lab: Notes/Report: [facility] , Thyroid Stimulating Hormone 2.326 0.358-3.740 uIU/mL Performing Lab: see note ML - [facility] LB T4 Reviewed date:07/06/2024 12:21:03 PM Interpretation: Performing Lab: Notes/Report: [facility] , T4 Thyroxine 5.40 4.50-12.10 ug/dL Performing Lab: see note ML - [facility] LB PSA SCREENING Reviewed date:07/06/2024 12:21:03 PM Interpretation: Performing Lab: Notes/Report: [facility] , Prostate Specific Antigen Scrn 1.08 <=4.00 ng/mL Performing Lab: see note ML - [facility] LB PROF 14(COMP METB) Reviewed date:07/06/2024 12:21:03 PM Interpretation: Performing Lab: Notes/Report: [facility] , Sodium 143 136-145 mmol/L Potassium 3.9 3.5-5.1 mmol/L Chloride 105 98-107 mmol/L Carbon Dioxide 27.4 21.0-32.0 mmol/L Anion Gap 14.5 Glucose 88 74-106 mg/dL Blood Urea Nitrogen 20.0 7.0-18.0 mg/dL Creatinine 0.95 0.70-1.30 mg/dL Estimated GFR ( Eugenie >60 >=60 mL/min/1.73m 2 Estimated GFR (Non- Gracie >60 >=60 mL/min/1.73m 2 BUN Creatinine Ratio 21.1 Calcium 9.2 8.5-10.1 mg/dL Bilirubin Total 0.9 0.2-1.0 mg/dL Aspartate Amino Transferase 17 15-37 U/L Alanine Aminotransferase 14 16-63 U/L Alkaline Phosphatase 67 46-116 U/L Total Protein 6.1 6.4-8.2 g/dL Albumin Level 3.6 3.4-5.0 g/dL Globulin 2.5 Albumin Globulin Ratio 1.4 Performing Lab: see note ML - [facility] LB LIPID PROFILE Reviewed date:07/06/2024 12:21:03 PM Interpretation: Performing Lab: Notes/Report: [facility] , Triglycerides 98 <=150 mg/dL Cholesterol 165 <=200 mg/dL HDL Cholesterol 44 40-60 mg/dL <40 mg/dl - HIGH CARDIOVASCULAR RISK > or =60 mg/dl - LOW CARDIOVASCULAR RISK LDL Cholesterol Calculated 101.4 >190 mg/dl VERY HIGH 130-159 mg/dl BORDERLINE HIGH 160-189 mg/dl HIGH <100 mg/dl OPTIMAL 100-129 mg/dl NEAR OR ABOVE OPTIMAL VLDL CHOLESTEROL 19.6 Chol HDL Ratio 3.8 3.3 - 4.4 LOW RISK 7.1 - 11.0 MODERATE RISK 4.4 - 7.1 AVERAGE RISK >11.0 HIGH RISK Performing Lab: see note ML - [facility] LB GLYCOHEMOGLOBIN A1C Reviewed date:07/06/2024 12:21:03 PM Interpretation: Performing Lab: Notes/Report: [facility] , Glycohemoglobin A1C 5.3 4.5-6.2 % ACTION SUGGESTED ADA RECOMMENDED LIMIT 4.0 - 6.0 ADA THERAPEUTIC TARGET < 7.0 > 7.0 Estimated Average Glucose 105 Performing Lab: see note ML - [facility] LB FREE T3 Reviewed date:07/06/2024 12:21:03 PM Interpretation: Performing Lab: Notes/Report: [facility] , Free T3 3.52 2.18-3.98 pg/mL Performing Lab: see note ML - [facility] CBC AUTO DIFF Reviewed date:07/06/2024 12:21:03 PM Interpretation: Performing Lab: Notes/Report: [facility] , White Blood Count 6.9 4.0-11.0 10 3/uL Red Blood Count 3.96 4.70-6.10 10 6/uL Hemoglobin 12.8 14.0-18.0 g/dL Hematocrit 37.4 42.0-54.0 % Mean Corpuscular Volume 94.4 80.0-94.0 fL Mean Corpuscular Hemoglobin 32.3 25.9-34.0 pg Mean Corpuscular HGB Conc 34.2 29.9-35.2 g/dL Red Cell Distribution Width 12.5 11.0-15.0 % Platelet Count 226 150-450 10 3/uL Mean Platelet Volume 10.0 9.5-13.5 fL Neutrophils Percent Auto 40.2 43.0-75.0 % Lymphocytes Percent Auto 39.0 20.5-60.0 % Monocytes Percent Auto 14.1 1.7-12.0 % Eosinophils Percent Auto 5.3 0.9-7.0 % Basophils Percent Auto 0.7 0.2-2.0 % Immature Granulocytes Pct Auto 0.7 0.0-0.5 % Neutrophils Absolute Auto 2.8 1.4-6.5 10 3/uL Lymphocytes Absolute Auto 2.7 1.2-3.8 10 3/uL Monocytes Absolute Auto 1.0 0.3-0.8 10 3/uL Eosinophils Absolute Auto 0.4 0.0-0.7 10 3/uL Basophils Absolute Auto 0.1 0.0-0.1 10 3/uL Immature Granulocytes Abs Auto 0.05 0.00-0.03 10 3/uL Performing Lab: see note ML - [facility] LB XR cervical spine 2-3V Reviewed date:06/29/2024 08:32:50 PM Interpretation: Performing Lab: Notes/Report: Source Facility: [facility]-[address] [place] [address] [place] [address] XRay Report Signed Patient: RAZA RODRIGUEZ MR#: [id number] : 1955 Acct:[id number] Age/Sex: 69 / M ADM Date: 06/29/24 Loc: RAD Attending Dr: Trupti-Staff Physician Fields Ordering Physician: Jennyfer Garber M.D. Date of Service: 06/29/24 Procedure(s): XR cervical spine 2-3V Accession Number(s): [id number] cc: Ester Cain M.D.; PhysicianJennyfer M.D. [address] [address] Patient Name: RAZA RODRIGUEZ MRN: [id number] date: 1955 Sex: M Assigned Patient Location: [facility] Current Patient Location: RAD Accession/Order Number: [id number] Exam Date: 06/29/2024 17:59 Report Date: 06/29/2024 18:00 At the request of: NON-STAFF PHYSICIAN Procedure: XR cervical spine 2-3V CERVICAL SPINE 3 views: CLINICAL HISTORY: S/P cervical spinal fusion, Z98.1 COMPARISON: Cervical spine 01/18/2022 FINDINGS: Posterior hardware fixation C4-C6 without hardware complication. Vertebral body heights appear maintained. Diffuse moderate disc space narrowing. No prevertebral soft tissue swelling. XR/XR cervical spine 2-3V IMPRESSION: NO HARDWARE COMPLICATION. Impression dictated by: James Pisano Jr. DMauriOMauri06/29/2024 6:00 PM Dictation Location: [place] [address] Electronically authenticated by: [id number] Y Date: 06/29/2024 18:00 Dictated By: James Pisano M.D. Signed By: 06/29/241801 DD/ 1800 TD/TT: Floors Buffer: The [place] [id number] XRay Report Signed Patient: MARSHA RODRIGUEZ MR#: [id number] : 1955 Acct:[id number] Age/Sex: 69 / M ADM Date: 06/29/24 Loc: [facility] Attending Dr: Dasia Garber M.D. Ordering Physician: Jennyfer Garber M.D. Date of Service: 06/29/24 Procedure(s): XR cervical spine 2-3V Accession Number(s): [id number] cc: Ester Cain M.D. ; PhysicianJennyfer M.D. The [address] [address] Patient Name: RAZA RODRIGUEZ MRN: [id number] date: 1955 Sex: M Assigned Patient Location: [facility] Current Patient Location: [facility] Accession/Order Ney er: [id number] Exam Date: 06/29/2024 17:59 Report Date: 06/29/2024 18:00 At the request of: NON-STAFF PHYSICIAN MD Procedure: XR cervic al spine 2-3V CERVICAL SPINE 3 views: CLINICAL HISTORY: S/ P cervical spinal fusion, Z98.1 COMPARISON: Cervical spine 01/18/2022 FINDINGS: Posterior hardware fixation C4-C6 without hardware complication. Vertebral body heights appear maintained. Diffuse moderate disc space narrowing. No prevertebral soft tissue swelling. XR/XR cervical spine 2-3V IMPRESSION: NO HARDWARE COMPLICATION. Impression dictated by: James Pisano Jr., D.O.06/29/2024 6:00 PM Dictation Location: [place] [address] Electronically authenticated by: [id number] Y Date: 06/29/2024 18:00 Dictated By: James Pisano M.D. Signed By: 06/29/241801 DD/ 99 TD/TT: Floors Buffer: Reason For Referral Diagnosis 1 Screening for colon cancer (Z12.11) Referral Organization [facility] Referring Provider First Name Micheal Referring Provider Last Name Merissa Referring Provider Speciality Family [facility] branden Referred Provider Cayetano Snell Referred Provider Specialty General Surg talia Referral Priority Routine Medications Medication SIG (Take, Route, Frequency, Duration) Notes Start Date End Date Status tiZANidine HCl 4 MG TAKE 2 TABLETS BY [facility] ONCE DAILY AT BEDTIME for 90 Active oxyCODONE HCl 5 MG 1 tablets Orally janeth ry 4 hours for 14 days 09/27/2024 Active Magnesium 400 MG 1 tablet Orally [...] Question Answer Notes Patient is a nonsmoker Alcohol Screen (Audit-C) Question Answer Notes Did you have a drink containing alcohol in the p ast year? No Points 0 Interpretation Negative AUDIT-C (Standard) Question Answer Notes Did you have a drink containing alcohol in the p ast year? No Points 0 Interpretation Negative Problems Problem Type SNOMED Code ICD Code Onset Dates Problem Status W/U Status Risk Notes Problem 19889673 Essential (primary) hypertension (I10) Active confirmed Problem 232648303 Hypoglycemia, unspecified (E16.2) Active confirmed Problem 0087666 Supraventricular tachycardia (I47.1) Active confirmed Problem 858249394 Ventricular premature depolarization (I49.3) Active confirmed Problem 44823471 Asymptomatic varicose veins of unspecified lower extremity (I83.90) Active confirmed Problem 090880784 Diverticulosis o f intestine, part unspecified, without perforation or abscess without bleeding (K57.90) Active confirmed Problem 39058607578837854 Sacroiliitis, not elsewhere classified (M46.1) Active confirmed Problem 11115146 Radiculopathy, cervical region (M54.12) Active confirmed Problem 256906450 Radiculopathy, lumbar region (M54.16) Active confirmed Problem 015180615 Impingement syndrome of unspecified shoulder (M75.40) Active confirmed Problem Cervical radiculopathy (11081783) Cervical radiculopathy (M54.12) Active confirmed Problem Benign prostatic hyperplasia (597035274) BPH (benign prostatic hyperplasia) (N40.0) Active confirmed Problem Ankle sprain (08046869) Ankle sprain (S93.409A) Active confirmed Problem Cellulitis (309494178) Cellulitis (L03.90) Active confirmed Problem 744652864 Pure hypercholesterolem ia, unspecified (E78.00) Active confirmed Problem 785822896 Elevated prostat e specific antigen [PSA] (R97.20) Active confirmed Problem Anemia (655026665) Acute anemia (D64.9) Active confirmed Problem Cecal polyp (730834117) Cecal polyp (K63.5) Active confirmed Vital Signs Temperature 97.9 degrees Fahrenheit 12/22/2023 Blood pressure diastolic 82 mm Hg 09/27/2024 Height 72 in 09/27/2024 Blood pressure systolic 122 mm Hg 09/27/2024 Weight 213.4 lbs 09/27/2024 BMI 28.94 kg/m2 09/27/2024 Encounters Encounter Location Date Provider Diagnosis [facility] [address] [place] [address] 10/15/2023 Micheal Hoy Hypoglycemia, unspecified E16.2 ; Radiculopathy, cervical region M54.12 and Radiculopathy, lumbar region M54.16 [facility] [address] [place] [address] 11/17/2023 Micheal Hoy Radiculopathy, lumba r region M54.16 [facility] [address] [place] [address] 12/22/2023 Micheal Hoy BPH (benign prostati c hyperplasia) N40.0 and Impingement syndrome of unspecified shoulder M75.40 [facility] [address] [place] [address] 01/21/2024 Micheal Hoy Radiculopathy, lumba r region M54.16 [facility] [address] [place] [address] 02/11/2024 Micheal Hoy Radiculopathy, lumba r region M54.16 and Radiculopathy, cervical region M54.12 [facility] [address] [place] [address] 03/01/2024 Micheal Hoy Radiculopathy, lumba r region M54.16 ; Pure hypercholesterolemia, unspecified E78.00 ; Essential (primary) hypertension I10 and Radiculopathy, cervical region M54.12 [facility] [address] [place] [address] 2024 Micheal Hoy Radiculopathy, lumba r region M54.16 and Radiculopathy, cervical region M54.12 [facility] [address] [place] [address] 05/03/2024 Micheal Hoy Ankle sprain S93.409 A ; Essential (primary) hypertension I10 ; Hypoglycemia, unspecified E16.2 ; BPH (benign prostatic hyperplasia) N40.0 and Pure hypercholesterolemia, unspecified E78.00 [facility] [address] [place] [address] 05/13/2024 Micheal Hoy Radiculopathy, lumba r region M54.16 and Cervical radiculopathy M54.12 [facility] [address] [place] [address] 07/05/2024 Micheal Hoy Elevated troponin R7 7.8 ; Essential (primary) hypertension I10 ; Hypoglycemia, unspecified E16.2 and Iron deficiency E61.1 [facility] [address] [place] [address] 08/16/2024 Micheal Hoy Cellulitis L03.90 [facility] [address] [place] [address] 09/13/2024 Micheal Hoy Cellulitis L03.90 [facility] [address] [place] [address] 09/27/2024 Micheal Hoy Hypoglycemia, unspecified E16.2 ; Acute anemia D64.9 and Radiculopathy, lumbar region M54.16 [facility] [address] [place] [address] 10/16/2023 Micheal Hoy [facility] [address] [place] [address] 10/16/2023 Micheal Hoy Screening for colon cancer Z12.11 [facility] [address] [place] [address] 10/23/2023 Micheal Hoy [facility] [address] [place] [address] 11/17/2023 Micheal Hoy [facility] [address] [place] [address] 12/04/2023 Micheal Hoy Pure hypercholesterolemia, unspecified E78.00 [facility] [address] [place] [address] 12/09/2023 Micheal Hoy [facility] [address] [place] [address] 12/16/2023 Micheal Hoy [facility] [address] [place] [address] 01/15/2024 Micheal Hoy BPH (benign prostati c hyperplasia) N40.0 [facility] [address] [place] [address] 01/23/2024 Micheal Hoy [facility] [address] [place] [address] 02/27/2024 Micheal Hoy [facility] [address] [place] [address] 03/15/2024 Micheal Hoy Radiculopathy, lumba r region M54.16 [facility] [address] [place] [address] 03/29/2024 Micheal Hoy Radiculopathy, lumba r region M54.16 and BPH (benign prostatic hyperplasia) N40.0 [facility] [address] [place] [address] 03/29/2024 Micheal Hoy [facility] [address] [place] [address] 04/12/2024 Micheal Hoy Radiculopathy, lumba r region M54.16 [facility] [address] [place] [address] 04/26/2024 Micheal Hoy Radiculopathy, lumba r region M54.16 [facility] [address] [place] [address] 05/03/2024 Micheal Hoy [facility] [address] [place] [address] 05/06/2024 Micheal Hoy [facility] [address] [place] [address] 05/10/2024 Micheal Hoy Radiculopathy, lumba r region M54.16 [facility] [address] [place] [address] 05/24/2024 Micheal Hoy Radiculopathy, lumba r region M54.16 [facility] [address] [place] [address] 06/11/2024 Micheal Hoy Radiculopathy, lumb ar region M54.16 [facility] [address] [place] [address] 07/06/2024 Micheal Hoy [facility] [address] [place] [address] 07/19/2024 Micheal Hoy Elevated troponin R7 7.8 [facility] [address] [place] [address] 08/03/2024 Micheal Hoy Elevated troponin R7 7.8 [facility] [address] [place] [address] 08/16/2024 Micheal Hoy [facility] [address] [place] [address] 08/30/2024 Micheal Hoy Cellulitis L03.90 [facility] [address] [place] [address] 09/27/2024 Micheal Hoy Radiculopathy, lumb ar region M54.16 Assessments Encounter Date Diagnosis (ICD Code) Assessment Notes Treatment Notes Treatment Clinical Notes Section Notes 10/15/2023 Hypoglycemia, unspecified (ICD-10 - E16.2) 10/15/2023 Radiculopathy, cervical region (ICD-10 - M54.12) 11/17/2023 Radiculopathy, lumbar region (ICD-10 - M54.16) 7 weeks since secdon surgery - R hip and R leg pain persisting - getting more testing in nov - avoidin narcotix 12/22/2023 Impingement syndrome of unspecified shoulder (ICD-10 - M75.40) 12/22/2023 BPH (benign prostatic hyperplasia) (ICD-10 - N40.0) 01/21/2024 Radiculopathy, lumbar region (ICD-10 - M54.16) 02/11/2024 Radiculopathy, cervical region (ICD-10 - M54.12) 02/11/2024 Radiculopathy, lumbar region (ICD-10 - M54.16) 03/01/2024 Radiculopathy, lumbar region (ICD-10 - M54.16) 03/01/2024 Pure hypercholesterole laurent, unspecified (ICD-10 - E78.00) 2024 Radiculopathy, cervical region (ICD-10 - M54.12) 2024 Radiculopathy, lumbar region (ICD-10 - M54.16) 05/03/2024 Essential (primary) hypertension (ICD-10 - I10) 05/03/2024 Hypoglycemia, unspecified (ICD-10 - E16.2) 05/03/2024 BPH (benign prostatic hyperplasia) (ICD-10 - N40.0) 05/03/2024 Ankle sprain (ICD-10 - S93.409A) 05/03/2024 Pure hypercholesterole laurent, unspecified (ICD-10 - E78.00) 05/13/2024 Radiculopathy, lumbar region (ICD-10 - M54.16) Unalbe to work due to cervical radiculopathy still wtih l;umbar radiculopathy 05/13/2024 Cervical radiculopathy (ICD-10 - M54.12) 07/05/2024 Essential (primary) hypertension (ICD-10 - I10) 09/27/2024 Acute anemia (ICD-10 - D64.9) 10/16/2023 Screening for colon cancer (ICD-10 - Z12.11) 12/04/2023 Pure hypercholesterole laurent, unspecified (ICD-10 - E78.00) 01/15/2024 BPH (benign prostatic hyperplasia) (ICD-10 - N40.0) 03/15/2024 Radiculopathy, lumbar region (ICD-10 - M54.16) 03/29/2024 Radiculopathy, lumbar region (ICD-10 - M54.16) 07/05/2024 Elevated troponin (ICD-10 - R77.8) repeating - trop - he prefers - to repeat labs - sebas do stress lexiscan 08/16/2024 Cellulitis (ICD-10 - L03.90) 09/13/2024 Cellulitis (ICD-10 - L03.90) 09/27/2024 Hypoglycemia, unspecified (ICD-10 - E16.2) 04/12/2024 Radiculopathy, lumbar region (ICD-10 - M54.16) 04/26/2024 Radiculopathy, lumbar region (ICD-10 - M54.16) 05/10/2024 Radiculopathy, lumbar region (ICD-10 - M54.16) 05/24/2024 Radiculopathy, lumbar region (ICD-10 - M54.16) 06/11/2024 Radiculopathy, lumbar region (ICD-10 - M54.16) 07/19/2024 Elevated troponin (ICD-10 - R77.8) 08/03/2024 Elevated troponin (ICD-10 - R77.8) 08/30/2024 Cellulitis (ICD-10 - L03.90) 09/27/2024 Radiculopathy, lumbar region (ICD-10 - M54.16) 09/27/2024 Radiculopathy, lumbar region (ICD-10 - M54.16) 03/29/2024 BPH (benign prostatic hyperplasia) (ICD-10 - N40.0) 07/05/2024 Hypoglycemia, unspecified (ICD-10 - E16.2) 03/01/2024 Essential (primary) hypertension (ICD-10 - I10) 10/15/2023 Radiculopathy, lumbar region (ICD-10 - M54.16) 03/01/2024 Radiculopathy, cervical region (ICD-10 - M54.12) cervical mri iwht severe senosis but pt doesnt want surgeyr 07/05/2024 Iron deficiency (ICD-10 - E61.1) 11/17/2023 Other Recommended to rest and use a heating pad on the area. Take NSAIDs for pain as needed 02/11/2024 Other Recommended to rest and use a heating pad on the area. Take NSAIDs for pain as needed 2024 Other Recommended to rest and use a heating pad on the area. Take NSAIDs for pain as needed Plan Of Treatment Pending Test Test Name Order Date Colonoscopy 08/15/2022 CMP (COMPLETE METABOLIC PANEL) CMP (COMPLETE METABOLIC PANEL) HEMOGLOBIN A1C (GLYCO) 05/03/2024 HEMOGLOBIN A1C (GLYCO) 10/15/2023 HEMOGLOBIN A1C (GLYCO) 07/05/2024 HEMOGLOBIN A1C (GLYCO) 09/27/2024 LIPID PANEL (CHOL/TRIG/HDL/LDL) 07/06/19 25 LIPID PANEL (CHOL/TRIG/HDL/LDL) 05/03/19 25 CBC WITH DIFF 05/03/2024 CBC WITH DIFF 10/15/2023 Insulin Level 10/15/2023 CBC W/AUTO DIFF 08/28/2023 PSA, TOTAL 08/19/2022 High Sensitivity Troponin 07/05/2024 IRON 09/27/2024 PROF 14(COMP METB) 08/19/2022 MRI LSPINE WO CON 02/19/2023 US TANMAY DOP LEG LT 08/27/2023 US TANMAY DOP LEG RT 08/27/2023 XR ANKLE LT MIN 3 V 05/03/2024 THYROID PANEL (T4/TSH/FREE T3) 5 THYROID PANEL (T4/TSH/FREE T3) 4 THYROID PANEL (T4/TSH/FREE T3) 5 Free PSA 08/19/2022 PSA, SCREENING 05/03/2024 PSA, SCREENING 07/05/2024 CMP (COMP MET OCASIO) w/eGFR CKD-EPI 2024 CMP (COMP MET OCASIO) w/eGFR CKD-EPI 2024 CMP (COMP MET OCASIO) w/eGFR CKD-EPI 2024 CBC WITH DIFF 09/27/2024 CBC WITH DIFF 07/05/2024 Next Appt Details Provider Name:Micheal Cain, 09:00:00 AM, [address] [place], [address], Insurance Providers Payer Name Payer Address Payer Phone Subscriber Number Group Number Insured Name Patient Relationship to Insured Coverage Start Date Coverage End Date [employer] [address] [address] [place] [address] [id number] Raza Rodriguez Self - patient is the insured 6 Medications Administered Medication Instructions Date of Administration Dosage Notes DEPO-Medrol 07/01/2022 80 mg 80 Dexamethasone, 4mg/mL 09/30/2022 12 mg 12 Kenalog-40 07/24/2022 120 mg 120 mg Kenalog-40 08/08/2022 120 mg 120 Kenalog-40 01/01/2023 120 mg 120 Kenalog-40 01/29/2023 80 mg Kenalog-40 02/19/2023 120 mg 120 Kenalog-40 02/20/2023 120 mg Kenalog-40 06/06/2023 120 mg 120 Kenalog-40 11/17/2023 120 mg Ketorolac Tromethamine 07/01/2022 60 mg 60 Ketorolac Tromethamine 08/08/2022 60 60 Ketorolac Tromethamine 08/19/2022 60 mg 60 Ketorolac Tromethamine 09/30/2022 60 mg 69 Ketorolac Tromethamine 10/30/2022 60 mg 60 Ketorolac Tromethamine 01/01/2023 60 mg 60 Ketorolac Tromethamine 01/29/2023 60 mg Ketorolac Tromethamine 02/19/2023 60 mg 60 Ketorolac Tromethamine 02/20/2023 60 mg Ketorolac Tromethamine 06/06/2023 60 mg 60 Ketorolac Tromethamine 09/22/2023 60 mg Ketorolac Tromethamine 10/15/2023 60 mg Ketorolac Tromethamine 11/17/2023 60 mg Ketorolac Tromethamine 08/16/2024 60 mg Ketorolac Tromethamine 09/13/2024 60 mg Ketorolac Tromethamine 09/27/2024 60 mg Orphenadrine Citrate 07/01/2022 60 mg 60 Orphenadrine Citrate 08/08/2022 60 mg 60 Orphenadrine Citrate 08/19/2022 60 mg 60 Orphenadrine Citrate 09/30/2022 60 mg 60 Orphenadrine Citrate 10/30/2022 60 mg 60 Orphenadrine Citrate 01/01/2023 60 mg 60 Orphenadrine Citrate 01/29/2023 60 mg Orphenadrine Citrate 02/19/2023 60 mg 60 Orphenadrine Citrate 02/20/2023 60 mg Orphenadrine Citrate 06/06/2023 60 mg 60 Orphenadrine Citrate 09/22/2023 60 mg Orphenadrine Citrate 10/15/2023 60 mg Orphenadrine Citrate 08/16/2024 60 mg Orphenadrine Citrate 09/13/2024 60 mg Orphenadrine Citrate 09/27/2024 60 mg Medical (General) History Medical History History ICD Code Back pain M54.9 Cervical radiculopathy M54.12 COVID-19 U07.1 Diverticulosis K57.90 Hypertension I10 Hypoglycemia E16.2 Lumbar disc disease M51.9 Lumbar radiculopathy M54.16 Pure hypercholesterolemia E78.00 Shoulder impingement syndrome M75.40 Other specified cardiac arrhythmias I49. 8 Ventricular tachycardia I47.20 PVC (premature ventricular contraction) I49.3 Varicose veins I86.8 Surgical History Surgery Date(Month/Year) hernia repair 05/02 laminectomy, lumbar exc Bx lesion nasal bridge 11/2016 Lumbar Fusion L2-L5 08/19/2023 Colonoscopy- Dr. Snell 11/26/2023 Laminoplasty Cervical Spine 06/01 Hospitalization History Reason Date(Month/Year) see above
--- OUTSIDE RECORDS SUMMARY | 2024-09-28 06:53 | XMS_ITS | Encounter Summary ---
Author Organization [facility] Address [address] [facility] [place] [address] Care Team Providers Care Crm Coordinator Name Role Phone Devon Craven MD Primary Care Provider [phone] Reason for Visit * Reason Onset Date Comments Smita 09/21/2024 Encounter Details Date Type Department Care Team (Late st Contact Info) Description 09/21/2024 Telephone [facility] [address] [place] [address] [place] RT. R Smita Social History Tobacco Use Types Packs/Day [...] Telephone Encounter - RT. Michael Keating - 09/24/2024 3:[address] Jeter spoke to Wes today. * Telephone Encounter - RT. Michael Keating - 09/21/2024 3:57 PM EDT Wes at [facility] left a message wanting Dr. Jeter to call him regarding treatment plan for patient. Please call [phone]. documented in this encounter Plan of Treatment Upcoming Encounters Date Type Department Care Team (Late st Contact Info) Description 10/06/2024 4:15 PM EDT Office Visit [facility] [address] [facility] [address] [place] [address] Mahamed Jeter, DPM [address] [facility] [address] [place] [address] documented as of this encounter Visit Diagnoses Not on filedocumented in this encounter Care Teams Crm Coordinator Relationship Specialty Start Date End Date Devon Craven MD [address] [place] [address] PCP - General Family Medicine 09/08/24 documented as of this encounter
--- OUTSIDE RECORDS SUMMARY | 2024-09-28 06:53 | XMS_ITS | Encounter Summary ---
Author Organization [facility] Address [address] [place] [address] Care Team Providers Care Floor Specialist Name Role Phone Devon Craven MD Primary Care Provider [phone] Jones Keith Md MD Unavailable Unavailable Source Comments In the event this information is protected by the Federal Confidentiality of Alcohol and Drug AbusePatient Records regulations: The Federal rules restrict any use of the information to criminally investigate or prosecute any alcohol or drug abuse patient.[facility] Encounter Details Date Type Department Care Team (Late st Contact Info) Description 05/06/2024 Patient Msg Spine [place] [address] [place] [address] Provider, Ccf Spine surgery information Social History Tobacco Use Types Packs/Day Years Used Date Smoking Tobacco: Never Smokeless Tobacco: Former Chew Quit: 1999 Alcohol Use Standard Drinks/Week Comments Never 0 (1 standard drink = 0.6 oz pur e alcohol) [facility] Utilities Answer Date Recorded In [...] place to sleep or slept in a senior care (including now)? No 08/20/2023 Area Deprivation Index Answer Date Cole rded National Score (1-100), lower number is lower ri sk 61 08/06/2023 State Score (1-10), lower number is lower risk 4 08/06/2023 Data from: https://www.neighborhoodatlas.medicine.[facility].edu/. Last address used for calculation [address] [...] on filedocumented in this encounter Care Teams Floor Specialist Relationship Specialty Start Date End Date Devon Craven MD PCP - General 05/05/06 Jones Keith Md, MD Spine Health 09/07/23 documented as of this encounter
--- OUTSIDE RECORDS SUMMARY | 2024-09-28 06:53 | XMS_ITS | Encounter Summary ---
Author Organization [facility] Address [address] [place] [address] Care Team Providers Care Tooth Cutter Name Role Phone Devon Craven MD Primary Care Provider [phone] Encounter Details Date Type Department Care Team ([facility] Contact Info) Description 09/17/2024 Bamboo flowsheet [facility] [address] [place] [address] Mahamed Jeter DPM [address] [place] [address] Social History Tobacco Use Types Packs/Day Years [...] Encounters Date Type Department Care Team (Late Contact Info) Description 10/06/2024 4:15 PM EDT Office Visit [facility] [address] [place] [phone] Mahamed Jeter DPM [address] [place] [address] documented as of this encounter Visit Diagnoses Not on filedocumented in this encounter Care Teams Tooth Cutter Relationship Specialty Start Date End Date Devon Craven MD [address] [place] [address] PCP - General Family Medicine 09/08/24 documented as of this encounter
--- OUTSIDE RECORDS SUMMARY | 2024-09-28 06:53 | XMS_ITS | Encounter Summary ---
Author Organization [facility] Address [address] [place] [address] Care Team Providers Care Diesel Mechanic Name Role Phone Devon Craven MD Primary Care Provider [phone] Jones Keith Md MD Unavailable Unavailable Source Comments In the event this information is protected by the Federal Confidentiality of Alcohol and Drug AbusePatient Records regulations: The Federal rules restrict any use of the information to criminally investigate or prosecute any alcohol or drug abuse patient.[facility] Encounter Details Date Type Department Care Team (Late st Contact Info) Description 02/03/2024 Get Medical Advice Spine [place] [address] [place] [address] Jones Keith MD [address] [place] [address] Cervical mri Social History Tobacco Use Types Packs/Day Years Used Date Smoking Tobacco: Never Smokeless Tobacco: Former Chew Quit: 1999 Alcohol Use Standard Drinks/Week Comments Never 0 (1 standard drink = 0.6 oz pur e alcohol) [facility] Utilities Answer Date Recorded In the past 12 months has [employer], gas, oil, or water company threatened to [...] place to sleep or slept in a assisted (including now)? No 08/20/2023 Area Deprivation Index Answer Date Cole rded National Score (1-100), lower number is lower ri sk 61 08/06/2023 State Score (1-10), lower number is lower risk 4 08/06/2023 Data from: https://www.neighborhoodatlas.medicine.[facility].edu/. Last address used for calculation [address] [...] on filedocumented in this encounter Care Teams Diesel Mechanic Relationship Specialty Start Date End Date Devon Craven MD PCP - General 05/05/06 Jones Keith Md, Spine Health 09/07/23 documented as of this encounter
--- OUTSIDE RECORDS SUMMARY | 2024-09-28 06:53 | XMS_ITS | Encounter Summary ---
Author Organization [facility] Address [address] [place], [place] [id number] Care Team Providers Care Patrol Sergeant Name Role Phone Devon Craven MD Primary Care Provider [phone] Jones Keith Md MD Unavailable Unavailable Source Comments In the event this information is protected by the Federal Confidentiality of Alcohol and Drug AbusePatient Records regulations: The Federal rules restrict any use of the information to criminally investigate or prosecute any alcohol or drug abuse patient.[facility] Encounter Details Date Type Department Care Team (Late st Contact Info) Description 07/31/2023 Patient Msg Pre Anesthesia [address] [place], [place] [id number] Provider, [facility] appt check in Social History Tobacco Use Types Packs/Day Years [...] is lower risk 4 04/30/2023 Data from: https://www.neighborhoodatlas.[facility].edu/. Last address used for calculation [...] on filedocumented in this encounter Care Teams Patrol Sergeant Relationship Specialty Start Date End Date Devon Craven MD PCP - General 05/05/06 Jones Keith Md, MD Spine Health 09/07/23 documented as of this encounter
--- OUTSIDE RECORDS SUMMARY | 2024-09-28 06:54 | XMS_ITS | Clinical Summary ---
Author Organization [facility] Address [address] [place] [address] Care Team Providers Care Back Closer Name Role Phone Devon Craven MD Primary Care Provider [phone] Allergies Active Allergy Reactions Criticality Noted Date Comments Penicillins Hives 09/17/2024 Methocarbamol 09/17/2024 Medications Magnesium 400 MG capsule Take 1 tablet by mouth Daily Active ferrous sulfate 325 (65 Fe) MG EC tablet Take 325 mg by mouth in the morning and 325 mg in the evening. Take with meals. Do not crush, chew, or split. Active oxyCODONE (Oxy-IR) 5 MG immediate release capsule Take 5 mg by mouth every 4 (four) hours if needed for severe pain Active tiZANidine (Zanaflex) 4 MG capsule Take 8 mg by mouth at bedtime Active tadalafil (Cialis) 5 MG tablet Take 5 mg by mouth Daily Active sulfamethoxazol e-trimethoprim (Bactrim DS) 800-160 MG per tablet Take 1 tablet by mouth every 12 (twelve) hours 09/13/2024 09/23/19 25 Encounters Date Type Department Care Team Description 09/27/2024 Telephone [facility] [address] [place] [address] [place], RT. R Complete 09-17-2024 office note for Smita 09/21/2024 Telephone [facility] [address] [place] [address] [place], RT. 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); PAD (peripheral artery disease); Absent pulse 09/17/2024 Bamboo flowsheet [facility] [address] [place] [address] Mahamed Jeter DPM 09/17/2024 Travel from Last 3 Months Family History Medical History Relation Name Comments Melanoma Brother Heart disease Father Melanoma Father cva Mother Relation Name Status Comments Brother Father Mother Social History Tobacco Use Types Packs/Day Years [...] - - Body Mass Index - - Plan of Treatment Upcoming Encounters Date Type Department Care Team (Late st Contact Info) Description 10/06/2024 4:15 PM EDT Office Visit [facility] [address] [place] [phone] Mahamed Jeter DPM [address] [place] [address] Health Maintenance Due Date Last Done Comments CT Colonography 1957 FIT-DNA 1957 FIT 1957 FOBT 1957 Sigmoidoscopy 1955 Pneumococcal Vaccine: 65+ Years (1 of 1 - PCV) 008 Influenza Vaccine (#1) 2024 12/29/2020 Colonoscopy 11/25/2033 11/26/2023 Colorectal Cancer Screening 11/25/2033 Procedures Procedure Name Priority Date/Time Associated Diagnosis Comments PREALBUMIN Routine 09/17/2024 12:44 PM EDT Neurogenic ulcer, 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) COMPREHENSIVE METABOLIC PANEL Routine 09/17/2024 12:44 PM EDT Neurogenic ulcer, 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) SED RATE BY MODIFIED WESTERGREN Routine 09/17/2024 12:44 PM EDT Neurogenic ulcer, 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) C-REACTIVE PROTEIN Routine 09/17/2024 12 :44 PM EDT Neurogenic ulcer, 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) CBC (INCLUDES DIFF/PLT) Routine 09/17/2024 12:44 PM EDT Neurogenic ulcer, 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) from Last 3 Months Results * Sedimentation rate, automated (09/17/2024 12:44 PM EDT) Sed Rate-Westergren 5 0 - 30 mm/hr [facility] Blood Venous blood specimen / Unknown 09/17/2024 12:44 PM EDT 09/17/2024 Narrative [facility] - 09/18/2024 6:07 AM EDT Performed at: 01 - [facility] [id number] Industrial Maintenance Tech: Scout Ludwig PhD, Phone: [phone] us Mahamed Jeter DPM LAB BLOOD ORDERABLES [...] 6:07 AM EDT Performed at: 01 - [facility] [id number] Industrial Maintenance Tech: Scout Ludwig PhD, Phone: [phone] Mahamed Jeter DPM LAB BLOOD ORDERABLES Final R esult [facility] * C-reactive protein (09/17/2024 12:44 PM EDT) [facility] C-Reactive Protein Quant 9 0 - 10 mg/L [facility] Blood Venous blood specimen / Unknown 09/17/2024 12:44 PM EDT 09/17/2024 Narrative [facility] - 09/18/2024 6:07 AM EDT Performed at: [address] [id number] Industrial Maintenance Tech: Scout Ludwig PhD, Phone: [phone] us Mahamed Jeter DPM LAB BLOOD ORDERABLES Final R esult Performing Organization Address [facility] Co de Phone Number [facility] * Prealbumin (09/17/2024 12:44 PM EDT) [facility] PREALBUMIN 26 10 - 36 mg/dL [facility] Blood Venous blood specimen / Unknown 09/17/2024 12:44 PM EDT 09/17/2024 Narrative [facility] - 09/18/2024 6:07 AM EDT Performed at: [address] [id number] Industrial Maintenance Tech: Scout Ludwig PhD, Phone: [phone] us Mahamed Jeter DPM LAB BLOOD ORDERABLES Final R esult Performing Organization Address City/[facility]/ZIP Co de Phone Number [facility] * (ABNORMAL) Comprehensive metabolic panel (09/17/2024 12:44 PM EDT) Pathologist [facility] Glucose 89 70 - 99 mg/dL [facility] [...] 6:07 AM EDT Performed at: 01 - [facility] [address] [id number] Industrial Maintenance Tech: Scout Ludwig PhD, Phone: [phone] Mahamed Jeter DPM LAB BLOOD ORDERABLES Final R esult [facility] from Last 3 Months Insurance [facility] Care Teams Back Closer Relationship Specialty Start Date End Date Devon Craven MD [address] [place] [address] PCP - General Family Medicine 09/08/24
--- OUTSIDE RECORDS SUMMARY | 2024-09-28 06:54 | XMS_ITS | CCD ---
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 Ester Cain Primary Care Unavail able [...] DR NORMAN Consulting Unavailable CARLITOSY ., DR NROMAN Attending Unavailable MD Ester Cain Primary Care Provider [phone] MD Shae Guillory Attending Provider [phone] Ester Cain MD Primary Care Provider [phone] Ester Cain MD Primary Care Provider PELLE, KATHERINE Referring Unavailable HOY, ESTER M Primary Care Unavailable PELLE, KATHERINE Referring Unavailable HOY, ESTER M Primary Care Unavailable BONUS, ALFONSO M Referring Unavailable HOY, ESTER M Primary Care Unavailable Katherine Sagar JERNIGAN Md Unavailable Unavailable MD Ester Cain M Primary Care Provider [phone] MD Camryn Agustin Attending Provider [phone] Hoy, Ester M Primary Care Unavailable Nill, Camryn Rodriguez Attending Unavailable Vamsi, Camryn Rodriguez Admitting Unavailable Shae Guillory Attending Unavailable VAMSI, Camryn Rodriguez Attending Unavailable VAMSI, Camryn Rodriguez Attending Unavailable VAMSI, Camryn Rodriguez Attending Unavailable Shae Guillory Attending Unavailable PELLE, KATHERINE Referring Unavailable HOY, ESTER M Primary Care Unavailable HOY, ESTER M Primary Care Unavailable BONUS, ALFONSO Attending Unavailable HOY, ESTER M Primary Care Unavailable BONUS, ALFONSO Referring Unavailable HOY, ESTER M Primary Care Unavailable PELLE, KATHERINE Referring Unavailable HOY, ESTER M Primary Care Unavailable PELLE, KATHERINE Attending Unavailable PELLE, KATHERINE Attending Unavailable PELLE, KATHERINE Referring Unavailable HOY, ESTER M Primary Care Unavailable HOY, ESTER M Primary Care Unavailable HOY, ESTER M Primary Care Unavailable PELLE, KATHERINE Referring Unavailable HOY, ESTER M Primary Care Unavailable HOY, ESTER M Primary Care Unavailable PELLE, KATHERINE Referring Unavailable PELLE, KATHERINE Referring Unavailable HOY, ESTER [...] Primary Care Unavailable PELLE, KATHERINE Referring Unavailable BONUS, ALFONSO Attending Unavailable HOY, ESTER M Primary Care Unavailable HOY, ESTER M Primary Care Unavailable HOY, ESTER M Primary Care Unavailable PELLE, KATHERINE Attending Unavailable PELLE, KATHERINE Admitting Unavailable HOY, ESTER M Primary Care Unavailable PELLE, KATHERINE Admitting Unavailable HOY, ESTER M Primary Care Unavailable PELLE, KATHERINE Attending Unavailable PELLE, KATHERINE Admitting Unavailable PELLE, KATHERINE Attending Unavailable HOY, ESTER M Primary Care Unavailable MUSCUTARRHONA Attending Unavailable PELLE, KATHERINE Referring Unavailable HOY, ESTER M Primary Care Unavailable PELLE, KATHERINE Referring Unavailable HOY, ESTER M Primary Care Unavailable PELLE, KATHERINE Referring Unavailable HOY, ESTER M Primary Care Unavailable PELLE, KATHERINE Referring Unavailable BONUS, ALFONSO Attending Unavailable HOY, ESTER M Primary Care Unavailable PELLE, KATHERINE Referring Unavailable BONUS, ALFONSO Attending Unavailable HOY, ESTER M Primary Care Unavailable HOY, ESTER M Primary Care Unavailable PELLE, KATHERINE Referring Unavailable Ester Cain MD Primary Care Provider [phone] MAHAMED GRAY Attending Unavailable Ester Cain MD Primary Care Provider [phone] Mahamed Gray DPM Attending Provider Allergies Allergy Classification Reported Allergen(s) Allergy Type Date of Onset Reaction(s) Facility Penicillins (antibiotic) (4 sources) Penicillins Drug Allergy 7 Rash [facility] Repository (9 sources) Penicillin; Translations: [penicillin] Drug Allergy Eruption of skin (disorder) [facility] [place] (13 sources) Penicillins; Translations: [PENICILLINS] Drug allergy (disorder) 7 Rash [facility] Repository (20 sources) Penicillins Propensity to adverse reactions 7 Rash [facility] (20 sources) Methocarbamol; Translations: [methocarbamol] Drug Allergy 4 Patient reported problems (finding), Intolerance [facility] [place] (1 source) Unable to Assess Drug allergy (disorder) 3 [facility] Repository (1 source) No Known Medication Allergies; Translations: [No Known Medication Allergies] Propensity to adverse reactions (disorder) [facility] Repository (15 sources) Penicillins Propensity to adverse reactions 7 Rash [facility] Medications Current Medications Medication Drug Class(es) Dates [...] route every 4 hours. 0 08/22/2023 Active aspirin 81 mg delayed release oral tablet (15 sources) Platelet Aggregation Inhibitor, Nonsteroidal Anti-inflammatory Drug Start: 06-08-2024 take 1 tablet by mouth once daily aspirin, enteric coated (ASPIRIN, ENTERIC COATED) 81 mg EC tablet Take 1 tablet by mouth once daily. 06/08/2024 Active carvedilol 25 mg oral tablet (20 [...] Ordered cyclobenzaprine hydrochloride 10 mg oral tablet (2 sources) Muscle Relaxant Start: take 1 tablet by mouth three times daily as needed for muscle spasms cyclobenzaprine 10 mg Tab 10 mg = 1 tab(s), Oral, TID, PRN for spasm, Refills(s) 0 Start Date: 10/23/23 Status: Ordered diclofenac sodium 0.01 mg/mg topical gel (20 sources) Nonsteroidal Anti-inflammatory Drug Start: End: diclofenac (VOLTAREN ARTHRITIS PAIN) 1 % topical gel Apply 2 g to affected area two times a day. 120 g 1 09/12/2023 11/11/2023 Active docusate sodium 50 mg / sennosides, fci 8.6 mg oral tablet (20 sources) Start: take 2 tablets by mouth every twelve hours as needed senna-docusate (SENNA-S) 8.6-50 mg per tablet Take 2 tablets by mouth two times a day as needed for constipation. 20 tablet 06/08/2024 Active Start: 08-22-2023 take 2 tablets by [facility] twice daily senna-docusate (SENNA-S) 8.6-50 mg per tablet Take 2 tablets by mouth two times a day. 20 tablet 08/22/2023 Suspended Fish Oils (3 sources) Start: 04-22-2022 take 1 capsule by mouth once daily Fish Oil 1 cap, Oral, Daily, Prophylaxis Start Date: 04/22/22 Status: Ordered furosemide 40 mg oral tablet (20 sources) Loop Diuretic take 1 tablet by mouth once daily furosemide (LASIX) 40 mg tablet Take 40 mg by mouth once daily. Active gabapentin 300 mg oral capsule (20 sources) Anti-epileptic Agent Start: 09-10-2023 End: 11-08-2023 take 1 capsule by mouth every eight [...] (20 sources) Antiarrhythmic, Amide Local Anesthetic Start: 09-12-2023 End: 10-09-2023 lidocaine (LIDODERM) 5 % Take as instructed on package 10 Patch 1 10/09/2023 Active lisinopril 20 mg oral tablet (18 sources) Angiotensin Converting Enzyme Inhibitor Start: 04-03-2022 [...] aily. magnesium oxide 500 mg oral capsule (11 sources) Start: 08-06-2023 take 1 capsule by [...] surgery. 22 g 0 08/06/2023 08/11/2023 Active naloxone 4 mg/actuation nasal spray (NARCAN) (15 sources) Start: 06-08-2024 naloxone 4 mg/actuation nasal spray (NARCAN) Indications: Acute postoperative pain , S/P cervical spinal fusion , Cervical spondylosis with myelopathy Use 1 spray in one nostril as needed for overdose. May repeat every 2 to 3 min in alternating nostrils until medical assistance is available 2 Each 06/08/2024 Active oxyCODONE hydrochloride 5 mg oral tablet (20 sources) Opioid Agonist Start: 06-21-2024 End: 07-05-2024 take 1 tablet by mouth every six hours as needed for pain oxyCODONE IR (ROXICODONE) 5 mg immediate release tablet Indications: Post-op pain Take 1 tablet by mouth every 6 hours as needed for pain for up to 7 days. 28 tablet 06/28/2024 07/05/2024 Active Start: 06-15-2024 End: 06-22-2024 take 1 tablet by mouth every four hours oxyCODONE IR (ROXICODONE) 5 mg immediate release tablet Indications: Post-op pain Take 1 tablet by mouth every 4 hours for 7 days. 42 tablet 06/15/2024 06/21/2024 Discontinued Start: 06-08-2024 End: 06-13-2024 take 1 tablet by mouth every four hours as needed oxyCODONE IR (ROXICODONE) 5 mg immediate release tablet Indications: Acute postoperative pain , S/P cervical spinal fusion , Cervical spondylosis with myelopathy Take 1-2 tablets by mouth every 4 hours as needed for pain (Moderate to severe postop pain) for up to 5 days. 60 tablet 06/08/2024 2:54 PM EDT 06/08/2024 06/13/2024 Active Start: 10-15-2023 End: 10-22-2023 take 1 tablet [...] to 7 days. 42 tablet 0 09/19/2023 09/21/2023 Discontinued Start: 09-10-2023 End: 09-17-2023 take 1 tablet [...] 08/29/2023 Discontinued pregabalin 50 mg oral capsule (20 sources) Start: 06-08-2024 End: 09-06-2024 take 2 capsules by mouth three times daily pregabalin (LYRICA) 50 mg capsule Indications: Adverse effect of treatment, sequela Take 2 capsules by mouth three times a day for 90 days. 180 capsule 2 06/08/2024 09/06/2024 Active Start: 10-23-2023 End: 02-10-2024 take 1 capsule by mouth twice daily pregabalin (LYRICA) 50 mg capsule Indications: Adverse effect of treatment, sequela Take 1 capsule by mouth two times a day for 90 days. 60 capsule 2 11/12/2023 Suspended sildenafil 100 mg oral tablet (2 sources) Phosphodiesterase 5 Inhibitor Start: 09-11-2022 take 1 tablet by mouth once daily as needed sildenafil 100 mg Tab 100 mg = 1 tab(s), Oral, Daily, PRN as needed, Refills(s) 0 Start Date: 09/11/22 Status: Ordered tiZANidine 2 mg oral tablet (20 sources) Central alpha-2 Adrenergic Agonist Start: 06-08-2024 End: 06-15-2024 take 1 tablet by mouth every eight hours as needed tiZANidine (ZANAFLEX) 2 mg tablet Indications: Acute postoperative pain , S/P cervical spinal fusion , Cervical spondylosis with myelopathy Take 3 tablets by mouth every 8 hours as needed for up to 7 days. 20 tablet 06/08/2024 2:54 PM EDT 06/08/2024 06/15/2024 Active Start: 09-10-2023 take 1 tablet by raya th every eight hours in the evening tiZANidine (ZANAFLEX) 2 mg tablet Take 3 tablets by mouth every 8 hours. 90 tablet 09/10/2023 3:56 PM EDT 09/10/2023 Suspended Start: 04-03-2022 take 2 tablets by mo [...] before starting methocarbamol 750 mg oral tablet (12 sources) Muscle Relaxant Start: 08-22-2023 take 1 tablet by mouth every six hours methocarbamol (ROBAXIN) 750 mg tablet Take 1 tablet by mouth every 6 hours. 60 tablet 0 08/22/2023 Suspended predniSONE 20 mg oral tablet (1 source) take 1 tablet by mouth once daily predniSONE (DELTASONE) 20 mg tablet Take 20 mg by mouth once daily. Suspended Problems Active Problems Problem Classification Problem Date Documented Date Episodic/Chronic Abdominal hernia (18 sources) Hernia of anterior abdominal wall; Translations: [Ventral hernia without obstruction or gangrene] Onset: 03-18-2022 Episodic Abdominal pain (13 sources) Epigastric pain; Translations: [Epigastric pain] Onset: 03-16-2022 Episodic Cardiac dysrhythmias (20 sources) Supraventricular tachycardia; Translations: [Ventricular premature beats] Onset: 08-06-2023 09-26-2020 Chronic Deficiency and other anemia (2 sources) Iron deficiency anemia; Translations: [Iron deficiency anemia, unspecified] 07-11-2023 Episodic Deficiency and other anemia (2 sources) Iron deficiency anemia, unspecified; Translations: [Iron deficiency anemia, unspecified iron deficiency anemia type] Onset: 08-06-2023 Episodic Disorders of lipid metabolism (8 sources) Pure hypercholesterolemia, unspecified; Translations: [Pure hypercholesterolemia] Onset: 03-06-2022 Chronic Diverticulosis and diverticulitis (12 sources) Diverticular disease; Translations: [Diverticula of intestine] Onset: 12-16-2023 09-26-2020 Chronic Essential hypertension (20 sources) Hypertensive disorder; Translations: [Essential hypertension] Onset: 08-06-2023 05-27-2019 Chronic Genitourinary symptoms and ill-defined conditions (4 sources) Blood in urine; Translations: [Gross hematuria] Onset: 12-05-2022 Episodic Hemorrhoids (8 sources) Internal hemorrhoids 09-26-2020 Episodic Hyperplasia of prostate (8 sources) Benign prostatic hypertrophy with outflow obstruction; Translations: [Benign prostatic hyperplasia with lower urinary tract symptoms] Onset: 09-04-2022 Chronic Malaise and fatigue (1 source) Asthenia; Translations: [Weakness] 01-14-2024 Episodic Other acquired deformities (20 sources) Other secondary scoliosis, site unspecified; Translations: [Disorder of bone and cartilage, unspecified] Onset: 08-06-2023 04-30-2023 Chronic Other acquired deformities (1 source) Spondylolysis; Translations: [Spondylolysis, lumbar region] 06-29-2024 Episodic Other acquired deformities (1 source) Spondylolysis, lumbar region; Translations: [Spondylolysis, lumbar region] Onset: 06-29-2024 Episodic Other aftercare (1 source) Surgical follow-up; Translations: [Encounter for removal of sutures] 06-16-2024 Episodic Other and unspecified benign neoplasm (8 sources) Dermal cellular nevus 06-15-2019 Episodic Other and unspecified benign neoplasm (1 source) Benign neoplasm of colon; Translations: [Benign neoplasm of colon, unspecified] Onset: 12-16-2023 Episodic Other and unspecified benign neoplasm (1 source) Adenomatous polyp of colon 12-16-2023 Episodic Other connective tissue disease (17 sources) History of cervical spine fusion; Translations: [Arthrodesis status] Onset: 06-08-2024 06-08-2024 Episodic Other connective tissue disease (3 sources) Arthrodesis status; Translations: [S/P cervical spinal fusion] Onset: 09-08-2023 Episodic Other diseases of kidney and ureters (1 source) Urinary tract obstruction; Translations: [Other obstructive and reflux uropathy] Onset: 09-04-2022 Episodic Other nervous system disorders (1 source) Other chronic pain; Translations: [Chronic low back pain, unspecified back pain laterality, unspecified whether sciatica present] Onset: 05-04-2023 Chronic Other nervous system disorders (1 source) Lumbosacral plexus neuropathy; Translations: [Lumbosacral plexus disorders] 01-14-2024 Chronic Other nervous system disorders (20 sources) Acute postoperative pain; Translations: [Other acute postprocedural pain] Onset: 08-20-2023 08-29-2023 Episodic Other nervous system disorders (7 sources) Postoperative pain ; Translations: [Other acute postprocedural pain] 10-09-2023 Episodic Other nervous system disorders (1 source) Finding related to ability to move; Translations: [Other abnormalities of gait and mobility] 01-14-2024 Episodic Other nervous system disorders (3 sources) Other acute postprocedural pain; Translations: [Postoperative pain after spinal surgery] Onset: 08-20-2023 Episodic Other non-epithelial cancer of skin (8 sources) 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 05-26-2019 Episodic Other nutritional; endocrine; and metabolic disorders (8 sources) Overweight in adulthood with body mass index of 25 or more but less than 30 04-03-2022 Episodic Other nutritional; endocrine; and metabolic disorders (2 sources) Overweight 11-11-2023 Episodic Other screening for suspected conditions (not mental disorders or infectious disease) (20 sources) Abnormal results of liver function studies; Translations: [Encounter for screening for malignant neoplasm of prostate] Onset: 01-01-2022 Episodic Other skin disorders (8 sources) Inflamed seborrheic keratosis 09-28-2020 Episodic Other skin disorders (8 sources) Senile hyperkeratosis 05-26-2019 Episodic Other skin disorders (8 sources) Skin tag 09-28-2020 Episodic Residual codes; unclassified (2 sources) H/O Spinal surgery; Translations: [Other specified postprocedural states] 07-11-2023 Episodic Residual codes; unclassified (1 source) Other specified postprocedural states; Translations: [History of laminectomy] Onset: 08-06-2023 Episodic Spondylosis; intervertebral disc disorders; other back problems (20 sources) Lumbar spondylosis; Translations: [Cervical spondylosis] Onset: 09-07-2023 09-26-2020 Chronic Unclassified (8 sources) Patient encounter status 09-28-2020 Unclassified (1 source) Chronic low back pain, unspecified back pain laterality, unspecified whether sciatica present; Translations: [Chronic low back pain, unspecified back pain laterality, unspecified whether sciatica present] Onset: 05-04-2023 Varicose veins of lower extremity (4 sources) Varicose veins of lower extremity 09-11-2022 Episodic Past or Other Problems Problem Classification Problem Date Documented Date Episodic/Chronic Acquired foot deformities (20 sources) Right foot drop; Translations: [Foot drop, right foot] Onset: 08-20-2023 08-20-2023 Episodic Allergic reactions (20 sources) Allergy to penicillin; Translations: [Allergy status to penicillin] Onset: 08-06-2023 08-06-2023 Episodic Complications of surgical procedures or medical care (5 sources) Complication of procedure; Translations: [Complication of surgical and medical care, unspecified, sequela] Onset: 01-13-2024 11-12-2023 Episodic Neoplasms of unspecified nature or uncertain [...] 08-19-2023 08-19-2023 Episodic Other connective tissue disease (20 sources) Swelling of lower limb; Translations: [Other specified soft tissue disorders] Onset: 09-08-2023 09-08-2023 Episodic Other connective tissue disease (20 sources) Pain in lower limb; Translations: [Pain in leg, unspecified] Onset: 09-08-2023 09-08-2023 Episodic Other connective tissue disease (3 sources) Other symptoms and signs involving the musculoskeletal system; Translations: [Other musculoskeletal symptoms referable to limbs] Onset: 01-13-2024 10-21-2023 Episodic Other connective tissue disease (2 sources) Other specified soft tissue disorders; Translations: [Localized swelling of lower extremity] Onset: 09-08-2023 Episodic Other connective tissue disease (1 source) Pain in leg, unspecified; Translations: [Pain and swelling of lower extremity, unspecified laterality] Onset: 09-08-2023 Episodic Other skin disorders (20 sources) Seborrheic keratosis; Translations: [Other seborrheic keratosis] Onset: 09-08-2008 09-08-2008 Episodic Residual codes; unclassified (20 sources) Pain; Translations: [Pain, unspecified] Onset: 09-08-2023 09-08-2023 Episodic Residual codes; unclassified (20 sources) Bilateral lower limb edema; Translations: [Localized edema] Onset: 09-08-2023 09-08-2023 Episodic Spondylosis; intervertebral disc disorders; other back problems (20 sources) Lumbar radiculopathy; Translations: [Radiculopathy, cervical region] Onset: 01-18-2022 09-26-2020 Episodic Unclassified (2 sources) History of cervical spine fusion 06-29-2024 Results Test Name Value Interpretation Reference Range Facility CNOVon 06-16-2024 CNOV Normal [facility] CNPNon 06-11-2024 CNPN Normal [facility] 25(OH)D3 SerPl-mCncon 2024 25-hydroxyvitamin D3 [Mass/Vol] 42.5 ng/mL Normal 31.0-80.0 [facility] Comment on above: Order Comment: Roberto Carlos lion Type: BLOOD SPECIMENOrdering Facility: [facility] Address: [address] [place] [address] Result Comment: Clas sification of 25 [place] Vitamin D status:Deficiency/Insufficiency: < or = 30 ng/ml.Sufficiency/Optimal Levels: 31-80 ng/mLToxicity: > 100 ng/mL.Test performed by chemiluminescent immunoassay. Performed By: #### 1 989-3 ####[facility] LABCLIA [id number] [place] [address] [place] CBC panel Auto (Bld)on 06-08 Erythrocyte distribution width (RBC) [Ratio] 12.7 % Normal 11.5-15.0 [facility] Comment on above: Order Comment: Roberto Carlos lion Type: BLOOD SPECIMENOrdering Facility: [facility] Address: [address] [place] [address] Performed By: #### 5 8410-2 ####[facility] LABCLIA [id number] [place] [address] [place] Hematocrit (Bld) [Volume fraction] 40.4 % Normal 39.0-51.0 [facility] Comment on above: Order Comment: Speci men Type: BLOOD SPECIMENOrdering Facility: [facility] Address: [address] [place] [address] Performed By: #### 5 8410-2 ####[facility] LABIA [id number] [place] [address] [place] Hemoglobin (Bld) [Mass/Vol] 13.2 g/dL Normal 13.0-17.0 [facility] Comment on above: Order Comment: Speci men Type: BLOOD SPECIMENOrdering Facility: [facility] Address: [address] [place] [address] Performed By: #### 5 8410-2 ####[facility] LABIA [id number] [place] [address] [place] MCH (RBC) [Entitic mass] 30.9 pg Normal 26.0-34.0 [facility] Comment on above: Order Comment: Speci men Type: BLOOD SPECIMENOrdering Facility: [facility] Address: [address] [place] [address] Performed By: #### 5 8410-2 ####[facility] LABCLIA [id number] [place] [address] [place] MCHC (RBC) [Mass/Vol] 32.7 g/dL Normal 30.5-36.0 [facility] Comment on above: Order Comment: Speci men Type: BLOOD SPECIMENOrdering Facility: [facility] Address: [address] [place] [address] Performed By: #### 5 8410-2 ####[facility] LABCLIA [id number] [place] [address] [place] MCV (RBC) [Entitic vol] 94.6 fL Normal 80.0-100.0 [facility] Comment on above: Order Comment: Speci men Type: BLOOD SPECIMENOrdering Facility: [facility] Address: [address] [place] [address] Performed By: #### 5 8410-2 ####[facility] LABIA [id number] [place] [address] [place] Nucleated RBC (Bld) [#/Vol] 10*3/uL Normal <0.01 [facility] Comment on above: Order Comment: Speci men Type: BLOOD SPECIMENOrdering Facility: [facility] Address: [address] [place] [address] Performed By: #### 5 8410-2 ####[facility] LABIA [id number] [place] [address] [place] Platelet mean volume (Bld) [Entitic vol] 10.7 fL Normal 9.0-12.7 [facility] Comment on above: Order Comment: Speci men Type: BLOOD SPECIMENOrdering Facility: [facility] Address: [address] [place] [address] Performed By: #### 5 8410-2 ####[facility] LABIA [id number] [place] [address] [place] Platelets (Bld) [#/Vol] 277 10*3/uL Normal 150-400 [facility] Comment on above: Order Comment: Speci men Type: BLOOD SPECIMENOrdering Facility: [facility] Address: [address] [place] [address] Performed By: #### 5 8410-2 ####[facility] LABCLIA [id number] [place] [address] [place] RBC (Bld) [#/Vol] 4.27 10*6/uL Normal 4.20-6.00 [facility] Comment on above: Order Comment: Speci men Type: BLOOD SPECIMENOrdering Facility: [facility] Address: [address] [place] [address] Performed By: #### 5 8410-2 ####[facility] LABCLIA [id number] [facility] [address] [place] [address] [place] WBC (Bld) [#/Vol] 8.97 10*3/uL Normal 3.70-11.00 [facility] Comment on above: Order Comment: Speci men Type: BLOOD SPECIMENOrdering Facility: [facility] Address: [address] [place] [address] Performed By: #### 5 8410-2 ####[facility] LABCLIA [id number] [address] [place] [address] [place] CNDSon 06-08-2024 CNDS Normal [facility] Comprehensive metabolic 2000 panelon 06-08-2024 Albumin [Mass/Vol] 3.5 g/dL Low 3.9-4.9 [facility] Comment on above: Order Comment: Speci men Type: BLOOD SPECIMENOrdering Facility: [facility] Address: [address] [place] [address] Performed By: #### 1 9123-9, 47224-6, HSTNT, 2777-1 ####[facility] LABCLIA [id number] [address] [place] [address] [place] ALP [Catalytic activity/Vol] 80 U/L Normal 38-113 [facility] Comment on above: Order Comment: Speci men Type: BLOOD SPECIMENOrdering Facility: [facility] Address: [address] [place], [place] [id number] Performed By: #### 1 9123-9, 25719-8, HSTNT, 2777-1 ####[facility] LABCLIA [id number] [facility] C[facility] [id number], [place] [address] [place] ALT [Catalytic activity/Vol] 10 U/L Normal 10-54 [facility] Comment on above: Order Comment: Speci men Type: BLOOD SPECIMENOrdering Facility: [facility] Address: [address] [place] [address] Performed By: #### 1 9123-9, 78839-8, HSTNT, 2777-1 ####[facility] LABCLIA [id number] [facility] [address] [place] [address] [place] Anion gap [Moles/Vol] 13 mmol/L Normal 8-15 [facility] Comment on above: Order Comment: Speci men Type: BLOOD SPECIMENOrdering Facility: [facility] Address: [address] [place] [address] Performed By: #### 1 9123-9, 20775-9, HSTNT, 277-1 ####[facility] LABCLIA [id number] [address] [address] [place] AST [Catalytic activity/Vol] 25 U/L Normal 14-40 [facility] Comment on above: Order Comment: Speci men Type: BLOOD SPECIMENOrdering Facility: [facility] Address: [address] [place] [address] Result Comment: Resu lts may be falsely increased due to interference from hemolysis. Suggest reorder as clinically indicated. Performed By: #### 1 9123-9, 73585-8, HSTNT, 277-1 ####[facility] LABCLIA [id number] [address] [place] [address] [place] Bilirubin [Mass/Vol] 0.8 mg/dL Normal 0.2-1.3 [facility] Comment on above: Order Comment: Speci men Type: BLOOD SPECIMENOrdering Facility: [facility] Address: [address] [place] [address] Performed By: #### 1 9123-9, 29956-4, HSTNT, 2777-1 ####[facility] LABCLIA [id number] [address] [address] [place] Calcium [Mass/Vol] 9.5 mg/dL Normal 8.5-10.2 [facility] Comment on above: Order Comment: Speci men Type: BLOOD SPECIMENOrdering Facility: [facility] Address: [address] [place] [address] Performed By: #### 1 9123-9, 03611-8, HSTNT, 2777-1 ####[facility] LABCLIA [id number] [place] [address] [place] Chloride [Moles/Vol] 106 mmol/L Normal 98-107 [facility] Comment on above: Order Comment: Speci men Type: BLOOD SPECIMENOrdering Facility: [facility] Address: [address] [place] [address] Performed By: #### 1 9123-9, 62779-3, HSTNT, 2777-1 ####[facility] LABIA [id number] [place] [address] [place] CO2 [Moles/Vol] 24 mmol/L Normal 22-30 [facility] Comment on above: Order Comment: Speci men Type: BLOOD SPECIMENOrdering Facility: [facility] Address: [address] [place] [address] Performed By: #### 1 9123-9, 74717-8, HSTNT, 2777-1 ####[facility] LABIA [id number] [place] [address] [place] Creatinine [Mass/Vol] 0.76 mg/dL Normal 0.73-1.22 [facility] Comment on above: Order Comment: Speci men Type: BLOOD SPECIMENOrdering Facility: [facility] Address: [address] [place] [address] Performed By: #### 1 9123-9, 83399-5, HSTNT, 2777-1 ####[facility] LABCLIA [id number] [address] [address] [place] Creatinine and Glomerular filtration rate.predicted panel (S/P/Bld) 99 mL/min/1.73m??? Normal >=60 [facility] Comment on above: Order Comment: Roberto Carlos lion Type: BLOOD SPECIMENOrdering Facility: [facility] Address: [address] [place] [address] Result Comment: Yesica mated Glomerular Filtration Rate [...] accurately reflect actual GFR. Performed By: #### 1 9123-9, 71570-5, HSTNT, 2776- ####[facility] LABCLIA [id number] [place] [id number] [place] Glucose [Mass/Vol] 90 mg/dL Normal 74-99 [facility] Comment on above: Order Comment: Roberto Carlos lion Type: BLOOD SPECIMENOrdering Facility: [facility] Address: [address] [place] [address] Result Comment: The [place] Diabetes [employer] (ADA) provides guidance for cutoff values for fasting glucose and random glucose. The ADA defines fasting as no caloric intake for at least 8 hours. Fasting plasma glucose results between 100 to 125 mg/dL indicate increased risk for diabetes (prediabetes).Fasting plasma glucose results greater than or equal to 126 mg/dL meet the criteria for diagnosis of diabetes. In the absence of unequivocal hyperglycemia, results should be confirmed by repeat testing. In a patient with classic symptoms of hyperglycemia or hyperglycemic crisis, random plasma glucose results greater than or equal to 200 mg/dL meet the criteria for diagnosis of diabetes.Reference: Standards of Medical Care in Diabetes 2016, [place] [employer]. Diabetes Care. 2016.39(Suppl 1). Performed By: #### 1 9123-9, 63823-6, HSTNT, 277- ####[facility] LABCLIA [id number] [address] [address] [place] Potassium [Moles/Vol] 4.2 mmol/L Normal 3.7-5.1 [facility] Comment on above: Order Comment: Speci men Type: BLOOD SPECIMENOrdering Facility: [facility] Address: [address] [place] [address] Performed By: #### 1 9123-9, 14895-1, HSTNT, 2777-1 ####[facility] LABCLIA [id number] [facility] [address] [place] [address] [place] Protein [Mass/Vol] 6.1 g/dL Low 6.3-8.0 [facility] Comment on above: Order Comment: Speci men Type: BLOOD SPECIMENOrdering Facility: [facility] Address: [address] [place] [address] Performed By: #### 1 9123-9, 53898-4, HSTNT, 2777-1 ####[facility] LABCLIA [id number] [address], [facility] [place] Sodium [Moles/Vol] 143 mmol/L Normal 136-144 [facility] Comment on above: Order Comment: Speci men Type: BLOOD SPECIMENOrdering Facility: [facility] Address: [address] [place] [address] Performed By: #### 1 9123-9, 42803-4, HSTNT, 2777-1 ####[facility] LABCLIA [id number] [address] [place] [address] [place] Urea nitrogen [Mass/Vol] 16 mg/dL Normal 9-24 [facility] Comment on above: Order Comment: Speci men Type: BLOOD SPECIMENOrdering Facility: [facility] Address: [address] [place] [address] Performed By: #### 1 9123-9, 33367-1, HSTNT, 2777-1 ####[facility] LABCLIA [id number] [facility] [address] [place] [address] [place] ECG COMPLETEon 06-08-2024 ECG COMPLETE Normal [facility] HIGH SENSITIVITY TROPONIN To n 06-08-2024 Troponin T.cardiac High sensitivity method [Mass/Vol] 28 ng/L High <12 [facility] Comment on above: Order Comment: Speci men Type: BLOOD SPECIMENOrdering Facility: [facility] Address: [address] [place] [address] Performed By: #### 1 9123-9, 83646-1, HSTNT, 2777-1 ####[facility] LABCLIA [id number] [place] [id number] [place] Magnesium SerPl-mCncon 06-08 Magnesium [Mass/Vol] 2.0 mg/dL Normal 1.7-2.3 [facility] Comment on above: Order Comment: Speci men Type: BLOOD SPECIMENOrdering Facility: [facility] Address: [address] [place] [address] Performed By: #### 1 9123-9, 85991-2, HSTNT, 2777-1 ####[facility] LABCLIA [id number] [place] [id number] [place] Phosphate SerPl-mCncon 06-08 Phosphate [Mass/Vol] 3.3 mg/dL Normal 2.7-4.8 [facility] Comment on above: Order Comment: Speci men Type: BLOOD SPECIMENOrdering Facility: [facility] Address: [address] [place] [address] Performed By: #### 1 9123-9, 83839-7, HSTNT, 2777-1 ####[facility] LABIA [id number] [place] [id number] [place] CASE MANAGEMon 06-07-2024 CASE MANAGEM Normal [facility] CBC W Auto Differential pane l (Bld)on 06-07-2024 Basophils (Bld) [#/Vol] 0.06 10*3/uL Normal <0.11 [facility] Comment on above: Order Comment: Speci men Type: BLOOD SPECIMENOrdering Facility: [facility] Address: [address] [place] [address] Performed By: #### 5 7021-8 ####[facility] LABCLIA [id number] [address] [place] [address] [place] Basophils/100 WBC (Bld) 0.6 % Normal [facility] Comment on above: Order Comment: Speci men Type: BLOOD SPECIMENOrdering Facility: [facility] Address: [address] [place] [address] Performed By: #### 5 7021-8 ####[facility] LABCLIA [id number] [address], [place] [address] [place] Differential cell count method Nom (Bld) Auto Normal [facility] Comment on above: Order Comment: Speci men Type: BLOOD SPECIMENOrdering Facility: [facility] Address: [address] [place] [address] Performed By: #### 5 7021-8 ####[facility] LABCLIA [id number] [address], [place] [address] [place] Eosinophils (Bld) [#/Vol] 0.32 10*3/uL Normal <0.46 [facility] Comment on above: Order Comment: Speci men Type: BLOOD SPECIMENOrdering Facility: [facility] Address: [address] [place] [address] Performed By: #### 5 7021-8 ####[facility] LABCLIA [id number] [facility] [address], [facility] [place] Eosinophils/100 WBC (Bld) 3.2 % Normal [facility] Comment on above: Order Comment: Speci men Type: BLOOD SPECIMENOrdering Facility: [facility] Address: [address] [place] [address] Performed By: #### 5 7021-8 ####[facility] LABCLIA [id number] [place] [id number] [place] Erythrocyte distribution width (RBC) [Ratio] 13.0 % Normal 11.5-15.0 [facility] Comment on above: Order Comment: Speci men Type: BLOOD SPECIMENOrdering Facility: [facility] Address: [address] [place] [address] Performed By: #### 5 7021-8 ####[facility] LABIA [id number] [place] [address] [place] Hematocrit (Bld) [Volume fraction] 37.7 % Low 39.0-51.0 [facility] Comment on above: Order Comment: Speci men Type: BLOOD SPECIMENOrdering Facility: [facility] Address: [address] [place] [address] Performed By: #### 5 7021-8 ####[facility] LABIA [id number] [place] [address] [place] Hemoglobin (Bld) [Mass/Vol] 12.4 g/dL Low 13.0-17.0 [facility] Comment on above: Order Comment: Speci men Type: BLOOD SPECIMENOrdering Facility: [facility] Address: [address] [place] [address] Performed By: #### 5 7021-8 ####[facility] LABIA [id number] [place] [address] [place] Immature granulocytes (Bld) [#/Vol] 0.14 10*3/uL High <0.10 [facility] Comment on above: Order Comment: Speci men Type: BLOOD SPECIMENOrdering Facility: [facility] Address: [address] [place] [address] Performed By: #### 5 7021-8 ####[facility] LABIA [id number] [place] [address] [place] Immature granulocytes/100 WBC (Bld) 1.4 % Normal [facility] Comment on above: Order Comment: Speci men Type: BLOOD SPECIMENOrdering Facility: [facility] Address: [address] [place] [address] Performed By: #### 5 7021-8 ####[facility] LABCLIA [id number] [place] [address] [place] Lymphocytes (Bld) [#/Vol] 2.70 10*3/uL Normal 1.00-4.00 [facility] Comment on above: Order Comment: Speci men Type: BLOOD SPECIMENOrdering Facility: [facility] Address: [address] [place] [address] Performed By: #### 5 7021-8 ####[facility] LABCLIA [id number] [place] [address] [place] Lymphocytes/100 WBC (Bld) 26.8 % Normal [facility] Comment on above: Order Comment: Speci men Type: BLOOD SPECIMENOrdering Facility: [facility] Address: [address] [place] [address] Performed By: #### 5 7021-8 ####[facility] LABCLIA [id number] [place] [address] [place] MCH (RBC) [Entitic mass] 31.1 pg Normal 26.0-34.0 [facility] Comment on above: Order Comment: Speci men Type: BLOOD SPECIMENOrdering Facility: [facility] Address: [address] [place] [address] Performed By: #### 5 7021-8 ####[facility] LABCLIA [id number] [place] [address] [place] MCHC (RBC) [Mass/Vol] 32.9 g/dL Normal 30.5-36.0 [facility] Comment on above: Order Comment: Speci men Type: BLOOD SPECIMENOrdering Facility: [facility] Address: [address] [place] [address] Performed By: #### 5 7021-8 ####[facility] LABCLIA [id number] [place] [id number] [place] MCV (RBC) [Entitic vol] 94.5 fL Normal 80.0-100.0 [facility] Comment on above: Order Comment: Speci men Type: BLOOD SPECIMENOrdering Facility: [facility] Address: [address] [place] [address] Performed By: #### 5 7021-8 ####[facility] LABCLIA [id number] [place] [address] [place] Monocytes (Bld) [#/Vol] 1.26 10*3/uL High <0.87 [facility] Comment on above: Order Comment: Speci men Type: BLOOD SPECIMENOrdering Facility: [facility] Address: [address] [place] [address] Performed By: #### 5 7021-8 ####[facility] LABCLIA [id number] [place] [address] [place] Monocytes/100 WBC (Bld) 12.5 % Normal [facility] Comment on above: Order Comment: Speci men Type: BLOOD SPECIMENOrdering Facility: [facility] Address: [address] [place] [address] Performed By: #### 5 7021-8 ####[facility] LABCLIA [id number] [place] [address] [place] Neutrophils (Bld) [#/Vol] 5.60 10*3/uL Normal 1.45-7.50 [facility] Comment on above: Order Comment: Speci men Type: BLOOD SPECIMENOrdering Facility: [facility] Address: [address] [place] [address] Performed By: #### 5 7021-8 ####[facility] LABCLIA [id number] [place] [id number] [place] Neutrophils/100 WBC (Bld) 55.5 % Normal [facility] Comment on above: Order Comment: Speci men Type: BLOOD SPECIMENOrdering Facility: [facility] Address: [address] [place] [address] Performed By: #### 5 7021-8 ####[facility] LABIA [id number] [place] [id number] [place] Nucleated RBC (Bld) [#/Vol] 10*3/uL Normal <0.01 [facility] Comment on above: Order Comment: Speci men Type: BLOOD SPECIMENOrdering Facility: [facility] Address: [address] [place] [address] Performed By: #### 5 7021-8 ####[facility] LABIA [id number] [place] [address] [place] Nucleated RBC/100 WBC (Bld) [Ratio] 0.0 /100 WBC Normal [facility] Comment on above: Order Comment: Speci men Type: BLOOD SPECIMENOrdering Facility: [facility] Address: [address] [place] [address] Performed By: #### 5 7021-8 ####[facility] LABIA [id number] [place] [address] [place] Platelet mean volume (Bld) [Entitic vol] 10.2 fL Normal 9.0-12.7 [facility] Comment on above: Order Comment: Speci men Type: BLOOD SPECIMENOrdering Facility: [facility] Address: [address] [place] [address] Performed By: #### 5 7021-8 ####[facility] LABIA [id number] [place] [id number] [place] Platelets (Bld) [#/Vol] 290 10*3/uL Normal 150-400 [facility] Comment on above: Order Comment: Speci men Type: BLOOD SPECIMENOrdering Facility: [facility] Address: [address] [place] [address] Performed By: #### 5 7021-8 ####[facility] LABCLIA [id number] [address] [address] [place] RBC (Bld) [#/Vol] 3.99 10*6/uL Low 4.20-6.00 [facility] Comment on above: Order Comment: Speci men Type: BLOOD SPECIMENOrdering Facility: [facility] Address: [address] [place] [address] Performed By: #### 5 7021-8 ####[facility] LABIA [id number] [address] [address] [place] WBC (Bld) [#/Vol] 10.08 10*3/uL Normal 3.70-11.00 [facility] Comment on above: Order Comment: Speci men Type: BLOOD SPECIMENOrdering Facility: [facility] Address: [address] [place] [address] Performed By: #### 5 7021-8 ####[facility] LABIA [id number] [place] [id number] [place] Comprehensive metabolic 2000 panelon 06-07-2024 Albumin [Mass/Vol] 3.9 g/dL Normal 3.9-4.9 [facility] Comment on above: Order Comment: Speci men Type: BLOOD SPECIMENOrdering Facility: [facility] Address: [address] [place] [address] Performed By: #### 1 9123-9, 2777-1, 58800-9, HSTNT ####[facility] [id number] [place] [id number] [place] ALP [Catalytic activity/Vol] 76 U/L Normal 38-113 [facility] Comment on above: Order Comment: Speci men Type: BLOOD SPECIMENOrdering Facility: [facility] Address: [address] [place] [address] Performed By: #### 1 9123-9, 2777-1, 52140-4, HSTNT ####[facility] LABCLIA [id number] [address] [address] [place] ALT [Catalytic activity/Vol] 12 U/L Normal 10-54 [facility] Comment on above: Order Comment: Speci men Type: BLOOD SPECIMENOrdering Facility: [facility] Address: [address] [place] [address] Performed By: #### 1 9123-9, 2777-1, 04978-5, HSTNT ####[facility] LABCLIA [id number] [address] [address] [place] Anion gap [Moles/Vol] 16 mmol/L High 8-15 [facility] Comment on above: Order Comment: Speci men Type: BLOOD SPECIMENOrdering Facility: [facility] Address: [address] [place] [address] Performed By: #### 1 9123-9, 2777-, 13208-9, HSTNT ####[facility] LABCLIA [id number] [address] [address] [place] AST [Catalytic activity/Vol] 24 U/L Normal 14-40 [facility] Comment on above: Order Comment: Speci men Type: BLOOD SPECIMENOrdering Facility: [facility] Address: [address] [place] [address] Performed By: #### 1 9123-9, 2777-1, 92226-5, HSTNT ####[facility] LABCLIA [id number] [address] [address] [place] Bilirubin [Mass/Vol] 1.0 mg/dL Normal 0.2-1.3 [facility] Comment on above: Order Comment: Speci men Type: BLOOD SPECIMENOrdering Facility: [facility] Address: [address] [place], [place] [address] Performed By: #### 1 9123-9, 2777-1, 65612-2, HSTNT ####[facility] LABCLIA [id number] [address] [address] [place] Calcium [Mass/Vol] 9.6 mg/dL Normal 8.5-10.2 [facility] Comment on above: Order Comment: Speci men Type: BLOOD SPECIMENOrdering Facility: [facility] Address: [address] [place], [place] [address] Performed By: #### 1 9123-9, 2777-, 43267-7, HSTNT ####[facility] LABCLIA [id number] [address] [address] [place] Chloride [Moles/Vol] 99 mmol/L Normal 98-107 [facility] Comment on above: Order Comment: Speci men Type: BLOOD SPECIMENOrdering Facility: [facility] Address: [address] [place] [address] Performed By: #### 1 9123-9, 277-, 45868-8, HSTNT ####[facility] LABCLIA [id number] [address] [address] [place] CO2 [Moles/Vol] 24 mmol/L Normal 22-30 [facility] Comment on above: Order Comment: Speci men Type: BLOOD SPECIMENOrdering Facility: [facility] Address: [address] [place], [place] [address] Performed By: #### 1 9123-9, 277-, 48287-7, HSTNT ####[facility] LABCLIA [id number] [address] [address] [place] Creatinine [Mass/Vol] 1.04 mg/dL Normal 0.73-1.22 [facility] Comment on above: Order Comment: Speci men Type: BLOOD SPECIMENOrdering Facility: [facility] Address: [address] [place], [place] [address] Performed By: #### 1 9123-9, 2777-1, 40297-1, HSTNT ####[facility] LABCLIA [id number] [place] [address] [place] Creatinine and Glomerular filtration rate.predicted panel (S/P/Bld) 79 mL/min/1.73m??? Normal >=60 [facility] Comment on above: Order Comment: Roberto Carlos lion Type: BLOOD SPECIMENOrdering Facility: [facility] Address: [address] [place] [address] Result Comment: Yesica mated Glomerular Filtration Rate [...] accurately reflect actual GFR. Performed By: #### 1 9123-9, 2777-1, 95606-6, HSTNT ####[facility] [id number] [place] [address] [place] Glucose [Mass/Vol] 110 mg/dL High 74-99 [facility] Comment on above: Order Comment: Roberto Carlos lion Type: BLOOD SPECIMENOrdering Facility: [facility] Address: [address] [place] [address] Result Comment: The [place] [employer] (ADA) provides guidance for cutoff values for fasting glucose and random glucose. The ADA defines fasting as no caloric intake for at least 8 hours. Fasting plasma glucose results between 100 to 125 mg/dL indicate increased risk for diabetes (prediabetes).Fasting plasma glucose results greater than or equal to 126 mg/dL meet the criteria for diagnosis of diabetes. In the absence of unequivocal hyperglycemia, results should be confirmed by repeat testing. In a patient with classic symptoms of hyperglycemia or hyperglycemic crisis, random plasma glucose results greater than or equal to 200 mg/dL meet the criteria for diagnosis of diabetes.Reference: Standards of Medical Care in Diabetes 2016, [place] [employer]. Diabetes Care. 2016.39(Suppl 1). Performed By: #### 1 9123-9, 2777-1, 38433-3, HSTNT ####[facility] LABCLIA [id number] [address] [address] [place] Potassium [Moles/Vol] 3.9 mmol/L Normal 3.7-5.1 [facility] Comment on above: Order Comment: Speci men Type: BLOOD SPECIMENOrdering Facility: [facility] Address: [address] [place] [address] Performed By: #### 1 9123-9, 2777-1, 52666-1, HSTNT ####[facility] LABCLIA [id number] [address] [address] [place] Protein [Mass/Vol] 6.3 g/dL Normal 6.3-8.0 [facility] Comment on above: Order Comment: Speci men Type: BLOOD SPECIMENOrdering Facility: [facility] Address: [address] [place] [address] Performed By: #### 1 9123-9, 27709-07, 46034-9, HSTNT ####[facility] LABCLIA [id number] [address] [address] [place] Sodium [Moles/Vol] 139 mmol/L Normal 136-144 [facility] Comment on above: Order Comment: Speci men Type: BLOOD SPECIMENOrdering Facility: [facility] Address: [address] [place] [address] Performed By: #### 1 9123-9, 277-, 33306-7, HSTNT ####[facility] LABCLIA [id number] [address] [address] [place] Urea nitrogen [Mass/Vol] 17 mg/dL Normal 9-24 [facility] Comment on above: Order Comment: Speci men Type: BLOOD SPECIMENOrdering Facility: [facility] Address: [address] [place], [place] [address] Performed By: #### 1 9123-9, 2777-, 08981-9, HSTNT ####[facility] LABCLIA [id number] [address] [address] [place] ECG COMPLETEon 06-07-2024 ECG COMPLETE Normal [place] [facility] HIGH SENSITIVITY TROPONIN To n 06-07-2024 Troponin T.cardiac High sensitivity method [Mass/Vol] 31 ng/L High <12 [facility] Comment on above: Order Comment: Speci men Type: BLOOD SPECIMENOrdering Facility: [facility] Address: [address] [place] [address] Performed By: #### 1 9123-9, 2777-1, 16495-2, HSTNT ####[facility] LABCLIA [id number] [place] [id number] [place] MEDICAL EMERon 06-07-2024 MEDICAL KAITLYN Normal [facility] Magnesium SerPl-mCncon 06-07 Magnesium [Mass/Vol] 1.9 mg/dL Normal 1.7-2.3 [facility] Comment on above: Order Comment: Speci men Type: BLOOD SPECIMENOrdering Facility: [facility] Address: [address] [place] [address] Performed By: #### 1 9123-9, 277-1, 17402-0, HSTNT ####[facility] LABCLIA [id number] [place] [id number] [place] NURSING PROGon 06-07-2024 NURSING PROG Normal [facility] NURSING PROG Normal [facility] Phosphate SerPl-mCncon 06-07 Phosphate [Mass/Vol] 3.3 mg/dL Normal 2.7-4.8 [facility] Comment on above: Order Comment: Speci men Type: BLOOD SPECIMENOrdering Facility: [facility] Address: [address] [place] [address] Performed By: #### 1 9123-9, 2777-1, 03612-6, HSTNT ####[facility] LABCLIA [id number] [address] [address] [place] ARTERIAL BLOOD GASESon 06-06 Base excess Calc (Bld) [Moles/Vol] 4 mmol/L High 0-2 [facility] Comment on above: Order Comment: Speci men Type: ARTERIAL BLOOD SPECIMENOrdering Facility: [facility] Address: [address] [place] [address] Performed By: #### A LLBG ####[facility] LABCLIA [id number] [address] [place] Body temperature 98.6 [degF] Normal [facility] Comment on above: Order Comment: Speci men Type: ARTERIAL BLOOD SPECIMENOrdering Facility: [facility] Address: [address] [place] [address] Performed By: #### A LLBG ####[facility] LABCLIA [id number] [address] [place] Calcium.ionized (Bld) [Mass/Vol] 1.23 mmol/L Normal 1.08-1.30 [facility] Comment on above: Order Comment: Speci men Type: ARTERIAL BLOOD SPECIMENOrdering Facility: [facility] Address: [address] [place] [address] Performed By: #### A LLBG ####[facility] LABIA [id number] [address] [place] Calcium.ionized adjusted to pH 7.4 (BldA) [Moles/Vol] 1.26 mmol/L Normal 1.08-1.30 [facility] Comment on above: Order Comment: Speci men Type: ARTERIAL BLOOD SPECIMENOrdering Facility: [facility] Address: [address] [place] [address] Performed By: #### A LLBG ####[facility] LABCLIA [id number] [place] [id number] [place] Carboxyhemoglobin (BldA) [Mass fraction] 1.2 % Normal 0.0-2.0 [facility] Comment on above: Order Comment: Speci men Type: ARTERIAL BLOOD SPECIMENOrdering Facility: [facility] Address: [address] [place] [address] Result Comment: Carb oxyhemoglobin Reference Range for Smokers: 2.0-8.0% Performed By: #### A LLBG ####[facility] LABCLIA [id number] [place] [address] [place] CO2 (Bld) [Partial pressure] 39 mm Hg Normal 36-46 [facility] Comment on above: Order Comment: Speci men Type: ARTERIAL BLOOD SPECIMENOrdering Facility: [facility] Address: [address] [place] [address] Performed By: #### A LLBG ####[facility] LABCLIA [id number] [place] [address] [place] Glucose [Mass/Vol] 116 mg/dL High 60-105 [facility] Comment on above: Order Comment: Speci men Type: ARTERIAL BLOOD SPECIMENOrdering Facility: [facility] Address: [address] [place] [address] Performed By: #### A LLBG ####[facility] LABCLIA [id number] [place] [address] [place] HCO3 (Bld) [Moles/Vol] 27 mmol/L High 22-26 [facility] Comment on above: Order Comment: Speci men Type: ARTERIAL BLOOD SPECIMENOrdering Facility: [facility] Address: [address] [place] [address] Performed By: #### A LLBG ####[facility] LABCLIA [id number] [place] [address] [place] Hematocrit (Bld) [Volume fraction] 39.5 % Normal 39.0-51.0 [facility] Comment on above: Order Comment: Speci men Type: ARTERIAL BLOOD SPECIMENOrdering Facility: [facility] Address: [address] [place] [address] Performed By: #### A LLBG ####[facility] LABCLIA [id number] [address] [address] [place] Hemoglobin (Bld) [Mass/Vol] 12.9 g/dL Low 13.0-17.0 [facility] Comment on above: Order Comment: Speci men Type: ARTERIAL BLOOD SPECIMENOrdering Facility: [facility] Address: [address] [place] [address] Performed By: #### A LLBG ####[facility] LABCLIA [id number] [address] [address] [place] Lactate [Moles/Vol] 0.6 mmol/L Normal 0.5-2.2 [facility] Comment on above: Order Comment: Speci men Type: ARTERIAL BLOOD SPECIMENOrdering Facility: [facility] Address: [address] [place] [address] Performed By: #### A LLBG ####[facility] LABIA [id number] [place] [address] [place] Methemoglobin (Bld) [Mass fraction] 0.5 % Normal 0.0-1.5 [facility] Comment on above: Order Comment: Speci men Type: ARTERIAL BLOOD SPECIMENOrdering Facility: [facility] Address: [address] [place] [address] Performed By: #### A LLBG ####[facility] LABIA [id number] [place] [id number] [place] O2 THERAPY RA=Room Air Normal [facility] Comment on above: Order Comment: Speci men Type: ARTERIAL BLOOD SPECIMENOrdering Facility: [facility] Address: [address] [place] [address] Performed By: #### A LLBG ####[facility] LABIA [id number] [address] [address] [place] Oxygen (Bld) [Partial pressure] 74 mm Hg Low 85-95 [facility] Comment on above: Order Comment: Speci men Type: ARTERIAL BLOOD SPECIMENOrdering Facility: [facility] Address: [address] [place] [address] Performed By: #### A LLBG ####[facility] LABCLIA [id number] [address] [address] [place] Oxyhemoglobin (BldA) [Mass fraction] 94 % Low 95-98 [facility] Comment on above: Order Comment: Speci men Type: ARTERIAL BLOOD SPECIMENOrdering Facility: [facility] Address: [address] [place] [address] Performed By: #### A LLBG ####[facility] LABIA [id number] [place] [id number] [place] pH (Bld) 7.46 [pH] High 7.35-7.45 [facility] Comment on above: Order Comment: Speci men Type: ARTERIAL BLOOD SPECIMENOrdering Facility: [facility] Address: [address] [place] [address] Performed By: #### A LLBG ####[facility] LABCLIA [id number] [place] [address] [place] PO2 / FIO2 RATIO 352 mmHg Normal >300 [facility] Comment on above: Order Comment: Speci men Type: ARTERIAL BLOOD SPECIMENOrdering Facility: [facility] Address: [address] [place] [address] Performed By: #### A LLBG ####[facility] LABCLIA [id number] [place] [id number] [place] Potassium [Moles/Vol] 3.8 mmol/L Normal 3.5-5.0 [facility] Comment on above: Order Comment: Speci men Type: ARTERIAL BLOOD SPECIMENOrdering Facility: [facility] Address: [address] [place] [address] Performed By: #### A LLBG ####[facility] LABCLIA [id number] [place] [id number] [place] Sodium [Moles/Vol] 137 mmol/L Normal 136-144 [facility] Comment on above: Order Comment: Speci men Type: ARTERIAL BLOOD SPECIMENOrdering Facility: [facility] Address: [address] [place] [address] Performed By: #### A LLBG ####[facility] LABCLIA [id number] [place] [address] [place] Basic metabolic 2000 panelon 06-06-2024 Anion gap [Moles/Vol] 11 mmol/L Normal 8-15 [facility] Comment on above: Order Comment: Speci men Type: BLOOD SPECIMENOrdering Facility: [facility] Address: [address] [place] [address] Performed By: #### 2 4321-2, HSTNT ####[facility] LABCLIA [id number] [place] [address] [place] Calcium [Mass/Vol] 9.8 mg/dL Normal 8.5-10.2 [facility] Comment on above: Order Comment: Speci men Type: BLOOD SPECIMENOrdering Facility: [facility] Address: [address] [place] [address] Performed By: #### 2 4321-2, HSTNT ####[facility] LABCLIA [id number] [place] [address] [place] Chloride [Moles/Vol] 102 mmol/L Normal 98-107 [facility] Comment on above: Order Comment: Speci men Type: BLOOD SPECIMENOrdering Facility: [facility] Address: [address] [place] [address] Performed By: #### 2 4321-2, HSTNT ####[facility] LABCLIA [id number] [place] [id number] [place] CO2 [Moles/Vol] 27 mmol/L Normal 22-30 [facility] Comment on above: Order Comment: Speci men Type: BLOOD SPECIMENOrdering Facility: [facility] Address: [address] [place] [address] Performed By: #### 2 4321-2, HSTNT ####[facility] LABCLIA [id number] [address] [address] [place] Creatinine [Mass/Vol] 1.00 mg/dL Normal 0.73-1.22 [facility] Comment on above: Order Comment: Speci men Type: BLOOD SPECIMENOrdering Facility: [facility] Address: [address] [place] [address] Performed By: #### 2 4321-2, HSTNT ####[facility] LABCLIA [id number] [place] [address] [place] Creatinine and Glomerular filtration rate.predicted panel (S/P/Bld) 82 mL/min/1.73m??? Normal >=60 [facility] Comment on above: Order Comment: Speci men Type: BLOOD SPECIMENOrdering Facility: [facility] Address: [address] [place] [address] Result Comment: Yesica mated Glomerular Filtration Rate [...] actual GFR. Performed By: #### 2 4321-2, HSTNT ####[facility] LABCLIA [id number] [address] [address] [place] Glucose [Mass/Vol] 94 mg/dL Normal 74-99 [facility] Comment on above: Order Comment: Speci men Type: BLOOD SPECIMENOrdering Facility: [facility] Address: [address] [place], [place] [address] Result Comment: The [place] [employer] (ADA) provides guidance for cutoff values for fasting glucose and random glucose. The ADA defines fasting as no caloric intake for at least 8 hours. Fasting plasma glucose results between 100 to 125 mg/dL indicate increased risk for diabetes (prediabetes).Fasting plasma glucose results greater than or equal to 126 mg/dL meet the criteria for diagnosis of diabetes. In the absence of unequivocal hyperglycemia, results should be confirmed by repeat testing. In a patient with classic symptoms of hyperglycemia or hyperglycemic crisis, random plasma glucose results greater than or equal to 200 mg/dL meet the criteria for diagnosis of diabetes.Reference: Standards of Medical Care in Diabetes 2016, [place] [employer]. Diabetes Care. 2016.39(Suppl 1). Performed By: #### 2 4321-2, HSTNT ####[facility] LABCLIA [id number] [place] [address] [place] Potassium [Moles/Vol] 4.3 mmol/L Normal 3.7-5.1 [facility] Comment on above: Order Comment: Speci men Type: BLOOD SPECIMENOrdering Facility: [facility] Address: [address] [place] [address] Performed By: #### 2 4321-2, HSTNT ####[facility] LABCLIA [id number] [place] [address] [place] Sodium [Moles/Vol] 140 mmol/L Normal 136-144 [facility] Comment on above: Order Comment: Speci men Type: BLOOD SPECIMENOrdering Facility: [facility] Address: [address] [place] [address] Performed By: #### 2 4321-2, HSTNT ####[facility] LABCLIA [id number] [place] [id number] [place] Urea nitrogen [Mass/Vol] 16 mg/dL Normal 9-24 [facility] Comment on above: Order Comment: Speci men Type: BLOOD SPECIMENOrdering Facility: [facility] Address: [address] [place] [address] Performed By: #### 2 4321-2, HSTNT ####[facility] LABCLIA [id number] [place] [address] [place] CBC panel Auto (Bld)on 06-06 Erythrocyte distribution width (RBC) [Ratio] 13.0 % Normal 11.5-15.0 [facility] Comment on above: Order Comment: Speci men Type: BLOOD SPECIMENOrdering Facility: [facility] Address: [address] [place] [address] Performed By: #### 5 8410-2 ####[facility] LABIA [id number] [place] [address] [place] Hematocrit (Bld) [Volume fraction] 39.7 % Normal 39.0-51.0 [facility] Comment on above: Order Comment: Speci men Type: BLOOD SPECIMENOrdering Facility: [facility] Address: [address] [place] [address] Performed By: #### 5 8410-2 ####[facility] LABIA [id number] [address] [place] Hemoglobin (Bld) [Mass/Vol] 13.0 g/dL Normal 13.0-17.0 [facility] Comment on above: Order Comment: Speci men Type: BLOOD SPECIMENOrdering Facility: [facility] Address: [address] [place] [address] Performed By: #### 5 8410-2 ####[facility] LABIA [id number] [place] [address] [place] MCH (RBC) [Entitic mass] 31.5 pg Normal 26.0-34.0 [facility] Comment on above: Order Comment: Speci men Type: BLOOD SPECIMENOrdering Facility: [facility] Address: [address] [place] [address] Performed By: #### 5 8410-2 ####[facility] LABIA [id number] [place] [address] [place] MCHC (RBC) [Mass/Vol] 32.7 g/dL Normal 30.5-36.0 [facility] Comment on above: Order Comment: Speci men Type: BLOOD SPECIMENOrdering Facility: [facility] Address: [address] [place] [address] Performed By: #### 5 8410-2 ####[facility] LABCLIA [id number] [place] [address] [place] MCV (RBC) [Entitic vol] 96.1 fL Normal 80.0-100.0 [facility] Comment on above: Order Comment: Speci men Type: BLOOD SPECIMENOrdering Facility: [facility] Address: [address] [place] [address] Performed By: #### 5 8410-2 ####[facility] LABIA [id number] [place] [address] [place] Nucleated RBC (Bld) [#/Vol] 10*3/uL Normal <0.01 [facility] Comment on above: Order Comment: Speci men Type: BLOOD SPECIMENOrdering Facility: [facility] Address: [address] [place] [address] Performed By: #### 5 8410-2 ####[facility] LABIA [id number] [place] [address] [place] Platelet mean volume (Bld) [Entitic vol] 10.4 fL Normal 9.0-12.7 [facility] Comment on above: Order Comment: Speci men Type: BLOOD SPECIMENOrdering Facility: [facility] Address: [address] [place] [address] Performed By: #### 5 8410-2 ####[facility] LABCLIA [id number] [place] [address] [place] Platelets (Bld) [#/Vol] 320 10*3/uL Normal 150-400 [facility] Comment on above: Order Comment: Speci men Type: BLOOD SPECIMENOrdering Facility: [facility] Address: [address] [place] [address] Performed By: #### 5 8410-2 ####[facility] LABIA [id number] [place] [address] [place] RBC (Bld) [#/Vol] 4.13 10*6/uL Low 4.20-6.00 [facility] Comment on above: Order Comment: Speci men Type: BLOOD SPECIMENOrdering Facility: [facility] Address: [address] [place] [address] Performed By: #### 5 8410-2 ####[facility] [id number] [place] [address] [place] WBC (Bld) [#/Vol] 9.89 10*3/uL Normal 3.70-11.00 [facility] Comment on above: Order Comment: Speci men Type: BLOOD SPECIMENOrdering Facility: [facility] Address: [address] [place] [address] Performed By: #### 5 8410-2 ####[facility] [id number] [place] [address] [place] HIGH SENSITIVITY TROPONIN To n 06-06-2024 Troponin T.cardiac High sensitivity method [Mass/Vol] 25 ng/L High <12 [facility] Comment on above: Order Comment: Speci men Type: BLOOD SPECIMENOrdering Facility: [facility] Address: [address] [place] [address] Performed By: #### 2 4321-2, HSTNT ####[facility] [id number] [place] [id number] [place] NURSING PROGon 06-06-2024 NURSING PROG Normal [facility] NURSING PROG Normal [facility] XR CERVICAL 2V AP/LATon - XR CERVICAL 2V AP/LAT Normal [facility] APAP SerPl-mCncon 06-04-2024 Acetaminophen [Mass/Vol] ug/mL Low 10-30 [facility] Comment on above: Order Comment: Speci men Type: BLOOD SPECIMENOrdering Facility: [facility] Address: [address] [place] [address] Result Comment: Toxi c > 150 ug/mL 4 hours post ingestionThe Anahi Terrell nomogram can be used to estimate the probability of hepatotoxicity via the relationship of plasma acetaminophen concentration to the post ingestion interval. (Greg. Pediatrics. 1975. 55:871 to 876 and Anahi et al. Arch [employer] Super[employer] Med. 1981. 141:380 to 385).Reference ranges and high/low indicator flags are provided as general guidelines only. The treating physician must determine appropriate target levels/dosing based on the specific clinical situation. Performed By: #### 3 298-7 ####[facility] LABCLIA [id number] [place] [address] [place] Basic metabolic 2000 panelon 06-04-2024 Anion gap [Moles/Vol] 9 mmol/L Normal 8-15 [facility] Comment on above: Order Comment: Roberto Carlos lion Type: BLOOD SPECIMENOrdering Facility: [facility] Address: [address] [place] [address] Performed By: #### 2 4321-2 ####[facility] LABCLIA [id number] [place] [address] [place] Calcium [Mass/Vol] 9.4 mg/dL Normal 8.5-10.2 [facility] Comment on above: Order Comment: Smitai ayad Type: BLOOD SPECIMENOrdering Facility: [facility] Address: [address] [place] [address] Performed By: #### 2 4321-2 ####[facility] LABCLIA [id number] [place] [address] [place] Chloride [Moles/Vol] 106 mmol/L Normal 98-107 [facility] Comment on above: Order Comment: Speci men Type: BLOOD SPECIMENOrdering Facility: [facility] Address: [address] [place] [id number] Performed By: #### 2 4321-2 ####[facility] LABCLIA [id number] [address] [address] [place] CO2 [Moles/Vol] 27 mmol/L Normal 22-30 [facility] Comment on above: Order Comment: Speci men Type: BLOOD SPECIMENOrdering Facility: [facility] Address: [address] [place] [address] Performed By: #### 2 4321-2 ####[facility] LABCLIA [id number] [address] [address] [place] Creatinine [Mass/Vol] 1.07 mg/dL Normal 0.73-1.22 [facility] Comment on above: Order Comment: Speci men Type: BLOOD SPECIMENOrdering Facility: [facility] Address: [address] [place] [address] Performed By: #### 2 4321-2 ####[facility] LABIA [id number] [address] [address] [place] Creatinine and Glomerular filtration rate.predicted panel (S/P/Bld) 76 mL/min/1.73m??? Normal >=60 [facility] Comment on above: Order Comment: Speci men Type: BLOOD SPECIMENOrdering Facility: [facility] Address: [address] [place] [address] Result Comment: Yesica mated Glomerular Filtration Rate [...] actual GFR. Performed By: #### 2 4321-2 ####[facility] LABCLIA [id number] [address] [address] [place] Glucose [Mass/Vol] 98 mg/dL Normal 74-99 [facility] Comment on above: Order Comment: Speci men Type: BLOOD SPECIMENOrdering Facility: [facility] Address: [address] [place] [address] Result Comment: The [place] [employer] (ADA) provides guidance for cutoff values for fasting glucose and random glucose. The ADA defines fasting as no caloric intake for at least 8 hours. Fasting plasma glucose results between 100 to 125 mg/dL indicate increased risk for diabetes (prediabetes).Fasting plasma glucose results greater than or equal to 126 mg/dL meet the criteria for diagnosis of diabetes. In the absence of unequivocal hyperglycemia, results should be confirmed by repeat testing. In a patient with classic symptoms of hyperglycemia or hyperglycemic crisis, random plasma glucose results greater than or equal to 200 mg/dL meet the criteria for diagnosis of diabetes.Reference: Standards of Medical Care in Diabetes 2016, [place] [employer]. Diabetes Care. 2016.39(Suppl 1). Performed By: #### 2 4321-2 ####[facility] LABCLIA [id number] [place] [address] [place] Potassium [Moles/Vol] 4.3 mmol/L Normal 3.7-5.1 [facility] Comment on above: Order Comment: Speci men Type: BLOOD SPECIMENOrdering Facility: [facility] Address: [address] [place] [address] Performed By: #### 2 4321-2 ####[facility] LABCLIA [id number] [place] [id number] [place] Sodium [Moles/Vol] 142 mmol/L Normal 136-144 [facility] Comment on above: Order Comment: Speci men Type: BLOOD SPECIMENOrdering Facility: [facility] Address: [address] [place], [place] [address] Performed By: #### 2 4321-2 ####[facility] LABCLIA [id number] [facility] [address] [address] [place] Urea nitrogen [Mass/Vol] 12 mg/dL Normal 9-24 [facility] Comment on above: Order Comment: Speci men Type: BLOOD SPECIMENOrdering Facility: [facility] Address: [address] [place] [address] Performed By: #### 2 4321-2 ####[facility] [id number] [place] [address] [place] CBC panel Auto (Bld)on 06-04 Erythrocyte distribution width (RBC) [Ratio] 13.5 % Normal 11.5-15.0 [facility] Comment on above: Order Comment: Speci men Type: BLOOD SPECIMENOrdering Facility: [facility] Address: [address] [place] [address] Performed By: #### 5 8410-2 ####[facility] [id number] [place] [address] [place] Hematocrit (Bld) [Volume fraction] 38.8 % Low 39.0-51.0 [facility] Comment on above: Order Comment: Speci men Type: BLOOD SPECIMENOrdering Facility: [facility] Address: [address] [place] [address] Performed By: #### 5 8410-2 ####[facility] [id number] [place] [address] [place] Hemoglobin (Bld) [Mass/Vol] 12.2 g/dL Low 13.0-17.0 [facility] Comment on above: Order Comment: Speci men Type: BLOOD SPECIMENOrdering Facility: [facility] Address: [address] [place] [address] Performed By: #### 5 8410-2 ####[facility] [id number] [place] [id number] [place] MCH (RBC) [Entitic mass] 31.1 pg Normal 26.0-34.0 [facility] Comment on above: Order Comment: Speci men Type: BLOOD SPECIMENOrdering Facility: [facility] Address: [address] [place] [address] Performed By: #### 5 8410-2 ####[facility] [id number] [place] [address] [place] MCHC (RBC) [Mass/Vol] 31.4 g/dL Normal 30.5-36.0 [facility] Comment on above: Order Comment: Speci men Type: BLOOD SPECIMENOrdering Facility: [facility] Address: [address] [place] [address] Performed By: #### 5 8410-2 ####[facility] [id number] [place] [address] [place] MCV (RBC) [Entitic vol] 99.0 fL Normal 80.0-100.0 [facility] Comment on above: Order Comment: Speci men Type: BLOOD SPECIMENOrdering Facility: [facility] Address: [address] [place] [address] Performed By: #### 5 8410-2 ####[facility] [id number] [place] [address] [place] Nucleated RBC (Bld) [#/Vol] 10*3/uL Normal <0.01 [facility] Comment on above: Order Comment: Speci men Type: BLOOD SPECIMENOrdering Facility: [facility] Address: [address] [place] [address] Performed By: #### 5 8410-2 ####[facility] [id number] [place] [address] [place] Platelet mean volume (Bld) [Entitic vol] 10.2 fL Normal 9.0-12.7 [facility] Comment on above: Order Comment: Speci men Type: BLOOD SPECIMENOrdering Facility: [facility] Address: [address] [place] [address] Performed By: #### 5 8410-2 ####[facility] [id number] [place] [address] [place] Platelets (Bld) [#/Vol] 239 10*3/uL Normal 150-400 [facility] Comment on above: Order Comment: Speci men Type: BLOOD SPECIMENOrdering Facility: [facility] Address: [address] [place] [address] Performed By: #### 5 8410-2 ####[facility] [id number] [place] [address] [place] RBC (Bld) [#/Vol] 3.92 10*6/uL Low 4.20-6.00 [facility] Comment on above: Order Comment: Speci men Type: BLOOD SPECIMENOrdering Facility: [facility] Address: [address] [place] [address] Performed By: #### 5 8410-2 ####[facility] [id number] [place] [address] [place] WBC (Bld) [#/Vol] 10.60 10*3/uL Normal 3.70-11.00 [facility] Comment on above: Order Comment: Speci men Type: BLOOD SPECIMENOrdering Facility: [facility] Address: [address] [place] [address] Performed By: #### 5 8410-2 ####[facility] [id number] [place] [id number] [place] Hepatic function 2000 panelo n 06-04-2024 Albumin [Mass/Vol] 4.0 g/dL Normal 3.9-4.9 [facility] Comment on above: Order Comment: Speci men Type: BLOOD SPECIMENOrdering Facility: [facility] Address: [address] [place] [address] Performed By: #### 2 4325-3 ####[facility] [id number] [place] [id number] [place] ALP [Catalytic activity/Vol] 62 U/L Normal 38-113 [facility] Comment on above: Order Comment: Speci men Type: BLOOD SPECIMENOrdering Facility: [facility] Address: [address] [place], [place] [address] Performed By: #### 2 4325-3 ####[facility] [id number] [address] [address] [place] ALT [Catalytic activity/Vol] 9 U/L Low 10-54 [facility] Comment on above: Order Comment: Speci men Type: BLOOD SPECIMENOrdering Facility: [facility] Address: [address] [place] [address] Performed By: #### 2 4325-3 ####[facility] [id number] [place] [address] [place] AST [Catalytic activity/Vol] 26 U/L Normal 14-40 [facility] Comment on above: Order Comment: Speci men Type: BLOOD SPECIMENOrdering Facility: [facility] Address: [address] [place] [address] Performed By: #### 2 4325-3 ####[facility] [id number] [place] [id number] [place] Bilirubin [Mass/Vol] 0.5 mg/dL Normal 0.2-1.3 [facility] Comment on above: Order Comment: Speci men Type: BLOOD SPECIMENOrdering Facility: [facility] Address: [address] [place] [address] Performed By: #### 2 4325-3 ####[facility] [id number] [place] [id number] [place] Bilirubin.conjugated [Mass/Vol] 0.2 mg/dL Normal <0.3 [facility] Comment on above: Order Comment: Speci men Type: BLOOD SPECIMENOrdering Facility: [facility] Address: [address] [place] [address] Performed By: #### 2 4325-3 ####[facility] [id number] [address] [address] [place] Protein [Mass/Vol] 6.0 g/dL Low 6.3-8.0 [facility] Comment on above: Order Comment: Speci men Type: BLOOD SPECIMENOrdering Facility: [facility] Address: [address] [place], [place] [id number] Performed By: #### 2 4325-3 ####[facility] LABIA [id number] [place] [id number] [place] THERAPY NTon 06-04-2024 THERAPY NT Normal [facility] XR CERVICAL 2V AP/LATon 05-09 XR CERVICAL 2V AP/LAT Normal [facility] Basic metabolic 2000 panelon 06-03-2024 Anion gap [Moles/Vol] 14 mmol/L Normal 8-15 [facility] Comment on above: Order Comment: Speci men Type: BLOOD SPECIMENOrdering Facility: [facility] Address: [address] [place], [place] [id number] Performed By: #### 2 4321-2 ####[facility] LAB[facility] [id number] [place] [id number] [place] Calcium [Mass/Vol] 9.5 mg/dL Normal 8.5-10.2 [facility] Comment on above: Order Comment: Speci men Type: BLOOD SPECIMENOrdering Facility: [facility] Address: [address] [place], [place] [address] Performed By: #### 2 4321-2 ####[facility] LABIA [id number] [address] [address] [place] Chloride [Moles/Vol] 103 mmol/L Normal 98-107 [facility] Comment on above: Order Comment: Speci men Type: BLOOD SPECIMENOrdering Facility: [facility] Address: [address] [place] [address] Performed By: #### 2 4321-2 ####[facility] [id number] [place] [id number] [place] CO2 [Moles/Vol] 23 mmol/L Normal 22-30 [facility] Comment on above: Order Comment: Speci men Type: BLOOD SPECIMENOrdering Facility: [facility] Address: [address] [place] [address] Performed By: #### 2 4321-2 ####[facility] LABIA [id number] [place] [address] [place] Creatinine [Mass/Vol] 0.88 mg/dL Normal 0.73-1.22 [facility] Comment on above: Order Comment: Speci men Type: BLOOD SPECIMENOrdering Facility: [facility] Address: [address] [place] [address] Performed By: #### 2 4321-2 ####[facility] [id number] [place] [address] [place] Creatinine and Glomerular filtration rate.predicted panel (S/P/Bld) 94 mL/min/1.73m??? Normal >=60 [facility] Comment on above: Order Comment: Speci men Type: BLOOD SPECIMENOrdering Facility: [facility] Address: [address] [place] [address] Result Comment: Yesica mated Glomerular Filtration Rate [...] actual GFR. Performed By: #### 2 4321-2 ####[facility] LABIA [id number] [place] [id number] [place] Glucose [Mass/Vol] 135 mg/dL High 74-99 [facility] Comment on above: Order Comment: Speci men Type: BLOOD SPECIMENOrdering Facility: [facility] Address: [address] [place] [phone] Result Comment: The [place] [employer] (ADA) provides guidance for cutoff values for fasting glucose and random glucose. The ADA defines fasting as no caloric intake for at least 8 hours. Fasting plasma glucose results between 100 to 125 mg/dL indicate increased risk for diabetes (prediabetes).Fasting plasma glucose results greater than or equal to 126 mg/dL meet the criteria for diagnosis of diabetes. In the absence of unequivocal hyperglycemia, results should be confirmed by repeat testing. In a patient with classic symptoms of hyperglycemia or hyperglycemic crisis, random plasma glucose results greater than or equal to 200 mg/dL meet the criteria for diagnosis of diabetes.Reference: Standards of Medical Care in Diabetes 2016, [place] [employer]. Diabetes Care. 2016.39(Suppl 1). Performed By: #### 2 4321-2 ####[facility] LABIA [id number] [place] [address] [place] Potassium [Moles/Vol] 4.2 mmol/L Normal 3.7-5.1 [facility] Comment on above: Order Comment: Speci men Type: BLOOD SPECIMENOrdering Facility: [facility] Address: [address] [place] [phone] Performed By: #### 2 4321-2 ####[facility] LABIA [id number] [place] [address] [place] Sodium [Moles/Vol] 140 mmol/L Normal 136-144 [facility] Comment on above: Order Comment: Speci men Type: BLOOD SPECIMENOrdering Facility: [facility] Address: [address] [place] [phone] Performed By: #### 2 4321-2 ####[facility] LABIA [id number] [place] [address] [place] Urea nitrogen [Mass/Vol] 15 mg/dL Normal 9-24 [facility] Comment on above: Order Comment: Speci men Type: BLOOD SPECIMENOrdering Facility: [facility] Address: [address] [place] [address] Performed By: #### 2 4321-2 ####[facility] LABIA [id number] [place] [id number] [place] CASE MGT INIT ASSESon 2024 CASE MGT INIT ASSES Normal [facility] CBC panel Auto (Bld)on 06-03 Erythrocyte distribution width (RBC) [Ratio] 13.0 % Normal 11.5-15.0 [facility] Comment on above: Order Comment: Speci men Type: BLOOD SPECIMENOrdering Facility: [facility] Address: [address] [place] [address] Performed By: #### 5 8410-2 ####[facility] LABIA [id number] [place] [address] [place] Hematocrit (Bld) [Volume fraction] 37.5 % Low 39.0-51.0 [facility] Comment on above: Order Comment: Speci men Type: BLOOD SPECIMENOrdering Facility: [facility] Address: [address] [place] [address] Performed By: #### 5 8410-2 ####[facility] LABIA [id number] [place] [address] [place] Hemoglobin (Bld) [Mass/Vol] 12.4 g/dL Low 13.0-17.0 [facility] Comment on above: Order Comment: Speci men Type: BLOOD SPECIMENOrdering Facility: [facility] Address: [address] [place] [address] Performed By: #### 5 8410-2 ####[facility] LABIA [id number] [place] [id number] [place] MCH (RBC) [Entitic mass] 31.2 pg Normal 26.0-34.0 [facility] Comment on above: Order Comment: Speci men Type: BLOOD SPECIMENOrdering Facility: [facility] Address: [address] [place] [address] Performed By: #### 5 8410-2 ####[facility] LABIA [id number] [place] [address] [place] MCHC (RBC) [Mass/Vol] 33.1 g/dL Normal 30.5-36.0 [facility] Comment on above: Order Comment: Speci men Type: BLOOD SPECIMENOrdering Facility: [facility] Address: [address] [place] [address] Performed By: #### 5 8410-2 ####[facility] LABIA [id number] [place] [address] [place] MCV (RBC) [Entitic vol] 94.5 fL Normal 80.0-100.0 [facility] Comment on above: Order Comment: Speci men Type: BLOOD SPECIMENOrdering Facility: [facility] Address: [address] [place] [address] Performed By: #### 5 8410-2 ####[facility] LABIA [id number] [place] [address] [place] Nucleated RBC (Bld) [#/Vol] 10*3/uL Normal <0.01 [facility] Comment on above: Order Comment: Speci men Type: BLOOD SPECIMENOrdering Facility: [facility] Address: [address] [place] [address] Performed By: #### 5 8410-2 ####[facility] LABIA [id number] [place] [address] [place] Platelet mean volume (Bld) [Entitic vol] 10.4 fL Normal 9.0-12.7 [facility] Comment on above: Order Comment: Speci men Type: BLOOD SPECIMENOrdering Facility: [facility] Address: [address] [place] [address] Performed By: #### 5 8410-2 ####[facility] LABIA [id number] [place] [address] [place] Platelets (Bld) [#/Vol] 266 10*3/uL Normal 150-400 [facility] Comment on above: Order Comment: Speci men Type: BLOOD SPECIMENOrdering Facility: [facility] Address: [address] [place] [address] Performed By: #### 5 8410-2 ####[facility] LABCLIA [id number] [place] [address] [place] RBC (Bld) [#/Vol] 3.97 10*6/uL Low 4.20-6.00 [facility] Comment on above: Order Comment: Speci men Type: BLOOD SPECIMENOrdering Facility: [facility] Address: [address] [place] [address] Performed By: #### 5 8410-2 ####[facility] LABCLIA [id number] [place] [address] [place] WBC (Bld) [#/Vol] 13.37 10*3/uL High 3.70-11.00 [facility] Comment on above: Order Comment: Speci men Type: BLOOD SPECIMENOrdering Facility: [facility] Address: [address] [place] [address] Performed By: #### 5 8410-2 ####[facility] LABCLIA [id number] [place] [address] [place] THERAPY NTon 06-03-2024 THERAPY NT Normal [facility] ANES POSTPROC EVALon 025 ANES POSTPROC EVAL Normal [facility] ANES PRE-OPon 06-02-2024 ANES PRE-OP Normal [facility] BRIEF OP NOTon 06-02-2024 BRIEF OP NOT Normal [facility] OPERATIVE NOon 06-02-2024 OPERATIVE NO Normal [facility] XR CERVICAL SPECIFY 1Von XR CERVICAL SPECIFY 1V Normal [facility] XR VERIFY LEVEL [id number] 06-02-2024 XR VERIFY LEVEL C-SPINE-NB Normal [facility] CT Cervical spine WO contras ton 05-16-2024 IMPRESSION: Developmental cervical canal stenosis with superimposed degenerative changes that are most prominent at C5-6 where there is severe cord compression. Multilevel bony foraminal narrowing as detailed above. Anatomic Variant: None. Assume 7 cervical vertebrae with counting from the craniocervical junction. [employer] Buff[employer] Machine Operator: CITLALLI Transcribe Date/Time: May 16 2024 7:44A Dictated by : DOMENIC FORD MD This examination was interpreted and the report reviewed and electronically signed by: DOMENIC FORD MD on May 16 2024 7:54AM EST [facility] * * *Final Report* * * DATE OF EXAM: May 14 2024 9:37AM [facility] 0505 - CT CERVICAL SPINE WO IVCON / PROCEDURE REASON: Spinal stenosis of cervical region * * * * Physician Interpretation * * * * EXAMINATION: CT CERVICAL SPINE WO IVCON CLINICAL HISTORY: Intermittent hand numbness, reduced manually dexterity and imbalance. Cervical spondylosis. TECHNIQUE: Spiral, high resolution axial unenhanced images were obtained from the skull base to the cervicothoracic junction with sagittal and coronal planar reconstructions. MQ: CTCSPWO_5 CT Radiation dose: Integrated CT Dose-Length Product (DLP) for this visit = 484.44 mGy*cm CT Dose Reduction Employed: Automated exposure control(AEC) and iterative recon COMPARISON: 02/21/2024 RESULT: Counting reference: Craniocervical junction. Anatomic Variants: None. Building Associate (topogram) images: No additional findings. Alignment: There is straightening and slight reversal of the normal cervical lordosis. Severe disc space narrowing is noted at C3-4 and C5-6 and moderate disc space narrowing is noted at C4-5 and C6-7. There is relative narrowing of the canal and foramina on a developmental basis. Craniocervical junction: Alignment at the craniocervical junction is within normal limits. Osseous structures/fracture: No evidence of a lytic or blastic process in the visualized spine. No evidence of acute or chronic fracture. 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 Cervical soft tissues: The paraspinal soft tissues are within normal limits. C2-C3: The canal and left neural foramen are patent. Facet degenerative changes cause mild right foraminal stenosis. No significant change. C3-C4: Mild disc osteophyte complex which is eccentric to the right of midline and accounts for mild eccentric cord compression. Facet and uncinate processes hypertrophy cause severe right and moderate left foraminal stenosis. C4-C5: Mild disc osteophyte complex which is eccentric to the left of midline which, in conjunction with ossification of posterior longitudinal ligament, accounts for mild eccentric cord compression. Facet and uncinate processes hypertrophy cause mild bilateral foraminal stenosis. C5-C6: Moderate disc osteophyte complex, ossification of posterior longitudinal ligament, and dorsal ligamentous hypertrophy cause severe cord compression. Facet and uncinate processes hypertrophy cause moderate to severe bilateral foraminal stenosis. C6-C7: Mild disc osteophyte complex and ossification of posterior longitudinal ligament mildly impinge on the adjacent spinal cord. Facet and uncinate processes hypertrophy cause moderate left foraminal stenosis. C7-T1: The canal remains patent. Facet degenerative changes cause mild bilateral foraminal stenosis. [facility] Provider, [facility] - 05/16/2024 * * *Final Report* * * DATE OF EXAM: May 14 2024 9:37AM [facility] [address] - CT CERVICAL SPINE WO IVCON / PROCEDURE REASON: Spinal stenosis of cervical region * * * * Physician Interpretation * * * * EXAMINATION: CT CERVICAL SPINE WO IVCON CLINICAL HISTORY: Intermittent hand numbness, reduced manually dexterity and imbalance. Cervical spondylosis. TECHNIQUE: Spiral, high resolution axial unenhanced images were obtained from the skull base to the cervicothoracic junction with sagittal and coronal planar reconstructions. MQ: CTCSPWO_5 CT Radiation dose: Integrated CT Dose-Length Product (DLP) for this visit = 484.44 mGy*cm CT Dose Reduction Employed: Automated exposure control(AEC) and iterative recon COMPARISON: 02/21/2024 RESULT: Counting reference: Craniocervical junction. Anatomic Variants: None. Building Associate (topogram) images: No additional findings. Alignment: There is straightening and slight reversal of the normal cervical lordosis. Severe disc space narrowing is noted at C3-4 and C5-6 and moderate disc space narrowing is noted at C4-5 and C6-7. There is relative narrowing of the canal and foramina on a developmental basis. Craniocervical junction: Alignment at the craniocervical junction is within normal limits. Osseous structures/fracture: No evidence of a lytic or blastic process in the visualized spine. No evidence of acute or chronic fracture. 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 Cervical soft tissues: The paraspinal soft tissues are within normal limits. C2-C3: The canal and left neural foramen are patent. Facet degenerative changes cause mild right foraminal stenosis. No significant change. C3-C4: Mild disc osteophyte complex which is eccentric to the right of midline and accounts for mild eccentric cord compression. Facet and uncinate processes hypertrophy cause severe right and moderate left foraminal stenosis. C4-C5: Mild disc osteophyte complex which is eccentric to the left of midline which, in conjunction with ossification of posterior longitudinal ligament, accounts for mild eccentric cord compression. Facet and uncinate processes hypertrophy cause mild bilateral foraminal stenosis. C5-C6: Moderate disc osteophyte complex, ossification of posterior longitudinal ligament, and dorsal ligamentous hypertrophy cause severe cord compression. Facet and uncinate processes hypertrophy cause moderate to severe bilateral foraminal stenosis. C6-C7: Mild disc osteophyte complex and ossification of posterior longitudinal ligament mildly impinge on the adjacent spinal cord. Facet and uncinate processes hypertrophy cause moderate left foraminal stenosis. C7-T1: The canal remains patent. Facet degenerative changes cause mild bilateral foraminal stenosis. IMPRESSION IMPRESSION: Developmental cervical canal stenosis with superimposed degenerative changes that are most prominent at C5-6 where there is severe cord compression. Multilevel bony foraminal narrowing as detailed above. Anatomic Variant: None. Assume 7 cervical vertebrae with counting from the craniocervical junction. Silverware Buffing Machine Operator: PSCB Transcribe Date/Time: May 16 2024 7:44A Dictated by : DOMENIC FORD MD This examination was interpreted and the report reviewed and electronically signed by: DOMENIC FORD MD on May 16 2024 7:54AM EST [facility] CT Cervical spine WO cam tOrdered By: [facility] Provider on 05-16-[address] [facility] [address] CERVICAL SPINE WO IVCONon 05-14-2024 CT CERVICAL SPINE WO IVCON * * *Final Report* * * DATE OF EXAM: May 14 2024 9:37AM [facility] [address] - CT CERVICAL SPINE WO IVCON / PROCEDURE REASON: Spinal stenosis of cervical region * * * * Physician Interpretation * * * * EXAMINATION: CT CERVICAL SPINE WO IVCON CLINICAL HISTORY: Intermittent hand numbness, reduced manually dexterity and imbalance. Cervical spondylosis. TECHNIQUE: Spiral, high resolution axial unenhanced images were obtained from the skull base to the cervicothoracic junction with sagittal and coronal planar reconstructions. MQ: CTCSPWO_5 CT Radiation dose: Integrated CT Dose-Length Product (DLP) for this visit = 484.44 mGy*cm CT Dose Reduction Employed: Automated exposure control(AEC) and iterative recon COMPARISON: 02/21/2024 RESULT: Counting reference: Craniocervical junction. Anatomic Variants: None. Building Associate (topogram) images: No additional findings. Alignment: There is straightening and slight reversal of the normal cervical lordosis. Severe disc space narrowing is noted at C3-4 and C5-6 and moderate disc space narrowing is noted at C4-5 and C6-7. There is relative narrowing of the canal and foramina on a developmental basis. Craniocervical junction: Alignment at the craniocervical junction is within normal limits. Osseous structures/fracture: No evidence of a lytic or blastic process in the visualized spine. No evidence of acute or chronic fracture. 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 Cervical soft tissues: The paraspinal soft tissues are within normal limits. C2-C3: The canal and left neural foramen are patent. Facet degenerative changes cause mild right foraminal stenosis. No significant change. C3-C4: Mild disc osteophyte complex which is eccentric to the right of midline and accounts for mild eccentric cord compression. Facet and uncinate processes hypertrophy cause severe right and moderate left foraminal stenosis. C4-C5: Mild disc osteophyte complex which is eccentric to the left of midline which, in conjunction with ossification of posterior longitudinal ligament, accounts for mild eccentric cord compression. Facet and uncinate processes hypertrophy cause mild bilateral foraminal stenosis. C5-C6: Moderate disc osteophyte complex, ossification of posterior longitudinal ligament, and dorsal ligamentous hypertrophy cause severe cord compression. Facet and uncinate processes hypertrophy cause moderate to severe bilateral foraminal stenosis. C6-C7: Mild disc osteophyte complex and ossification of posterior longitudinal ligament mildly impinge on the adjacent spinal cord. Facet and uncinate processes hypertrophy cause moderate left foraminal stenosis. C7-T1: The canal remains patent. Facet degenerative changes cause mild bilateral foraminal stenosis. IMPRESSION: Developmental cervical canal stenosis with superimposed degenerative changes that are most prominent at C5-6 where there is severe cord compression. Multilevel bony foraminal narrowing as detailed above. Anatomic Variant: None. Assume 7 cervical vertebrae with counting from the craniocervical junction. [employer] Buff[employer] Machine Operator: CITLALLI Transcribe Date/Time: May 16 2024 7:44A Dictated by : DOMENIC FORD MD This examination was interpreted and the report reviewed and electronically signed by: DOMENIC FORD MD on May 16 2024 7:54AM EST [id number] Normal [facility] CT Cervical spine WO contras ton 05-14-2024 Radiology Study observation (narrative) [facility] Basic metabolic 2000 panelon 05-12-2024 Anion gap [Moles/Vol] 11 mmol/L 8 - 15 mmol/L [facility] Calcium [Mass/Vol] 9.8 mg/dL 8.5 - 10. 2 mg/dL [facility] Chloride [Moles/Vol] 99 mmol/L 98 - 10 7 mmol/L [facility] CO2 [Moles/Vol] 28 mmol/L 22 - 30 mmol/L [facility] Creatinine [Mass/Vol] 0.91 mg/dL 0.73 - 1.22 mg/dL [facility] GFR/1.73 sq M.predicted among non-blacks MDRD (S/P/Bld) [Vol rate/Area] 92 mL/min/{1.73_m2} - PINF [facility] Comment on above: Estimated Glomerular Filtration Rate [...] not accurately reflect actual GFR. Glucose [Mass/Vol] 120 mg/dL High 74 - 99 mg/dL [facility] Comment on above: The [place] Diabete s Association (ADA) provides guidance for [...] Standards of Medical Care in Diabetes 2016, [place] [employer]. Diabetes Care. 2016.39(Suppl 1). Interpretation and review of laboratory results Abnormal [facility] Potassium [Moles/Vol] 4.4 mmol/L 3.7 - 5.1 mmol/L [facility] Sodium [Moles/Vol] 138 mmol/L 136 - 144 mmol/L [facility] Urea nitrogen [Mass/Vol] 23 mg/dL 9 - 24 mg/dL [facility] Anion gap [Moles/Vol] 11 mmol/L Normal 8-15 [facility] Comment on above: Order Comment: Speci men Type: BLOOD SPECIMENOrdering Facility: [facility] Address: [address] [place] [address] Performed By: #### 5 0190-8, 55992-6, 2275-06 ####[facility] LABIA [id number] [place] [address] [place] Calcium [Mass/Vol] 9.8 mg/dL Normal 8.5-10.2 [facility] Comment on above: Order Comment: Speci men Type: BLOOD SPECIMENOrdering Facility: [facility] Address: [address] [place] [address] Performed By: #### 5 0190-8, 29517-5, 2275-06 ####[facility] LABIA [id number] [place] [address] [place] Chloride [Moles/Vol] 99 mmol/L Normal 98-107 [facility] Comment on above: Order Comment: Speci men Type: BLOOD SPECIMENOrdering Facility: [facility] Address: [address] [place] [address] Performed By: #### 5 0190-8, 46702-7, 2275-06 ####[facility] LABIA [id number] [address] [address] [place] CO2 [Moles/Vol] 28 mmol/L Normal 22-30 [facility] Comment on above: Order Comment: Speci men Type: BLOOD SPECIMENOrdering Facility: [facility] Address: [address] [place] [address] Performed By: #### 5 0190-8, 00539-7, 2275-06 ####[facility] LABIA [id number] [address] [address] [place] Creatinine [Mass/Vol] 0.91 mg/dL Normal 0.73-1.22 [facility] Comment on above: Order Comment: Speci men Type: BLOOD SPECIMENOrdering Facility: [facility] Address: [address] [place] [address] Performed By: #### 5 0190-8, , 2275-06 ####[facility] LABIA [id number] [address] [address] [place] Creatinine and Glomerular filtration rate.predicted panel (S/P/Bld) 92 mL/min/1.73m??? Normal >=60 [facility] Comment on above: Order Comment: Speci men Type: BLOOD SPECIMENOrdering Facility: [facility] Address: [address] [place] [address] Result Comment: Yesica mated Glomerular Filtration Rate [...] accurately reflect actual GFR. Performed By: #### 5 0190-8, 10035-0, 2275-06 ####[facility] LABIA [id number] [address] [place] [address] [place] Glucose [Mass/Vol] 120 mg/dL High 74-99 [facility] Comment on above: Order Comment: Speci men Type: BLOOD SPECIMENOrdering Facility: [facility] Address: [address] [place] [address] Result Comment: The [place] Diabetes Association (ADA) provides guidance for cutoff values for fasting glucose and random glucose. The ADA defines fasting as no caloric intake for at least 8 hours. Fasting plasma glucose results between 100 to 125 mg/dL indicate increased risk for diabetes (prediabetes).Fasting plasma glucose results greater than or equal to 126 mg/dL meet the criteria for diagnosis of diabetes. In the absence of unequivocal hyperglycemia, results should be confirmed by repeat testing. In a patient with classic symptoms of hyperglycemia or hyperglycemic crisis, random plasma glucose results greater than or equal to 200 mg/dL meet the criteria for diagnosis of diabetes.Reference: Standards of Medical Care in Diabetes 2016, [place] Diabetes Association. Diabetes Care. 2016.39(Suppl 1). Performed By: #### 5 0190-8, 51499-1, 2275- ####[facility] LABCLIA [id number] [place] [address] [place] Potassium [Moles/Vol] 4.4 mmol/L Normal 3.7-5.1 [facility] Comment on above: Order Comment: Speci men Type: BLOOD SPECIMENOrdering Facility: [facility] Address: [address] [place] [address] Performed By: #### 5 0190-8, 45392-6, 2275-06 ####[facility] LABCLIA [id number] [place] [address] [place] Sodium [Moles/Vol] 138 mmol/L Normal 136-144 [facility] Comment on above: Order Comment: Speci men Type: BLOOD SPECIMENOrdering Facility: [facility] Address: [address] [place] [address] Performed By: #### 5 0190-8, 43391-4, 2275- ####[facility] LABCLIA [id number] [place] [address] [place] Urea nitrogen [Mass/Vol] 23 mg/dL Normal 9-24 [facility] Comment on above: Order Comment: Speci men Type: BLOOD SPECIMENOrdering Facility: [facility] Address: [address] [place] [address] Performed By: #### 5 0190-8, 99570-6, 2276-4 ####[facility] LABCLIA [id number] [place] [address] [place] CBC W Auto Differential pane l (Bld)on 05-12-2024 Basophils (Bld) [#/Vol] 0.03 10*3/uL Normal <0.11 [facility] Comment on above: Order Comment: Speci men Type: BLOOD SPECIMENOrdering Facility: [facility] Address: [address] [place] [address] Performed By: #### 5 7021-8 ####[facility] LABCLIA [id number] [place] [address] [place] Basophils/100 WBC (Bld) 0.3 % Normal [facility] Comment on above: Order Comment: Speci men Type: BLOOD SPECIMENOrdering Facility: [facility] Address: [address] [place] [address] Performed By: #### 5 7021-8 ####[facility] LABCLIA [id number] [place] [address] [place] Differential cell count method Nom (Bld) Auto Normal [facility] Comment on above: Order Comment: Speci men Type: BLOOD SPECIMENOrdering Facility: [facility] Address: [address] [place] [address] Performed By: #### 5 7021-8 ####[facility] LABCLIA [id number] [place] [id number] [place] Eosinophils (Bld) [#/Vol] 10*3/uL Normal <0.46 [facility] Comment on above: Order Comment: Speci men Type: BLOOD SPECIMENOrdering Facility: [facility] Address: [address] [place] [address] Performed By: #### 5 7021-8 ####[facility] LABCLIA [id number] [address] [address] [place] Eosinophils/100 WBC (Bld) 0.1 % Normal [facility] Comment on above: Order Comment: Speci men Type: BLOOD SPECIMENOrdering Facility: [facility] Address: [address] [place] [address] Performed By: #### 5 7021-8 ####[facility] LABCLIA [id number] [place] [address] [place] Erythrocyte distribution width (RBC) [Ratio] 12.4 % Normal 11.5-15.0 [facility] Comment on above: Order Comment: Speci men Type: BLOOD SPECIMENOrdering Facility: [facility] Address: [address] [place] [address] Performed By: #### 5 7021-8 ####[facility] LABCLIA [id number] [place] [address] [place] Hematocrit (Bld) [Volume fraction] 45.6 % Normal 39.0-51.0 [facility] Comment on above: Order Comment: Speci men Type: BLOOD SPECIMENOrdering Facility: [facility] Address: [address] [place] [address] Performed By: #### 5 7021-8 ####[facility] LABCLIA [id number] [address] [address] [place] Hemoglobin (Bld) [Mass/Vol] 14.9 g/dL Normal 13.0-17.0 [facility] Comment on above: Order Comment: Speci men Type: BLOOD SPECIMENOrdering Facility: [facility] Address: [address] [place] [address] Performed By: #### 5 7021-8 ####[facility] LABCLIA [id number] [place] [address] [place] Immature granulocytes (Bld) [#/Vol] 0.11 10*3/uL High <0.10 [facility] Comment on above: Order Comment: Speci men Type: BLOOD SPECIMENOrdering Facility: [facility] Address: [address] [place] [address] Performed By: #### 5 7021-8 ####[facility] LABCLIA [id number] [place] [address] [place] Immature granulocytes/100 WBC (Bld) 1.3 % Normal [facility] Comment on above: Order Comment: Speci men Type: BLOOD SPECIMENOrdering Facility: [facility] Address: [address] [place] [address] Performed By: #### 5 7021-8 ####[facility] LABCLIA [id number] [place] [address] [place] Lymphocytes (Bld) [#/Vol] 0.83 10*3/uL Low 1.00-4.00 [facility] Comment on above: Order Comment: Speci men Type: BLOOD SPECIMENOrdering Facility: [facility] Address: [address] [place] [address] Performed By: #### 5 7021-8 ####[facility] LABCLIA [id number] [place] [address] [place] Lymphocytes/100 WBC (Bld) 9.5 % Normal [facility] Comment on above: Order Comment: Speci men Type: BLOOD SPECIMENOrdering Facility: [facility] Address: [address] [place] [address] Performed By: #### 5 7021-8 ####[facility] LABCLIA [id number] [place] [address] [place] MCH (RBC) [Entitic mass] 31.0 pg Normal 26.0-34.0 [facility] Comment on above: Order Comment: Speci men Type: BLOOD SPECIMENOrdering Facility: [facility] Address: [address] [place] [address] Performed By: #### 5 7021-8 ####[facility] LABIA [id number] [place] [address] [place] MCHC (RBC) [Mass/Vol] 32.7 g/dL Normal 30.5-36.0 [facility] Comment on above: Order Comment: Speci men Type: BLOOD SPECIMENOrdering Facility: [facility] Address: [address] [place] [address] Performed By: #### 5 7021-8 ####[facility] LABIA [id number] [place] [address] [place] MCV (RBC) [Entitic vol] 94.8 fL Normal 80.0-100.0 [facility] Comment on above: Order Comment: Speci men Type: BLOOD SPECIMENOrdering Facility: [facility] Address: [address] [place] [address] Performed By: #### 5 7021-8 ####[facility] LABIA [id number] [place] [address] [place] Monocytes (Bld) [#/Vol] 0.26 10*3/uL Normal <0.87 [facility] Comment on above: Order Comment: Speci men Type: BLOOD SPECIMENOrdering Facility: [facility] Address: [address] [place] [address] Performed By: #### 5 7021-8 ####[facility] LABIA [id number] [address] [place] Monocytes/100 WBC (Bld) 3.0 % Normal [facility] Comment on above: Order Comment: Speci men Type: BLOOD SPECIMENOrdering Facility: [facility] Address: [address] [place] [address] Performed By: #### 5 7021-8 ####[facility] LABCLIA [id number] [address] [address] [place] Neutrophils (Bld) [#/Vol] 7.47 10*3/uL Normal 1.45-7.50 [facility] Comment on above: Order Comment: Speci men Type: BLOOD SPECIMENOrdering Facility: [facility] Address: [address] [place] [address] Performed By: #### 5 7021-8 ####[facility] LABCLIA [id number] [place] [address] [place] Neutrophils/100 WBC (Bld) 85.8 % Normal [facility] Comment on above: Order Comment: Speci men Type: BLOOD SPECIMENOrdering Facility: [facility] Address: [address] [place] [address] Performed By: #### 5 7021-8 ####[facility] LABCLIA [id number] [place] [address] [place] Nucleated RBC (Bld) [#/Vol] 10*3/uL Normal <0.01 [facility] Comment on above: Order Comment: Speci men Type: BLOOD SPECIMENOrdering Facility: [facility] Address: [address] [place] [address] Performed By: #### 5 7021-8 ####[facility] LABCLIA [id number] [facility] [place] [address] [place] Nucleated RBC/100 WBC (Bld) [Ratio] 0.0 /100 WBC Normal [facility] Comment on above: Order Comment: Speci men Type: BLOOD SPECIMENOrdering Facility: [facility] Address: [address] [place] [address] Performed By: #### 5 7021-8 ####[facility] LABCLIA [id number] [address], [facility] [place] Platelet mean volume (Bld) [Entitic vol] 10.0 fL Normal 9.0-12.7 [facility] Comment on above: Order Comment: Speci men Type: BLOOD SPECIMENOrdering Facility: [facility] Address: [address] [place] [address] Performed By: #### 5 7021-8 ####[facility] LABCLIA [id number] [facility] [place] [address] [place] Platelets (Bld) [#/Vol] 394 10*3/uL Normal 150-400 [facility] Comment on above: Order Comment: Speci men Type: BLOOD SPECIMENOrdering Facility: [facility] Address: [address] [place] [address] Performed By: #### 5 7021-8 ####[facility] LABCLIA [id number] [place] [address] [place] RBC (Bld) [#/Vol] 4.81 10*6/uL Normal 4.20-6.00 [facility] Comment on above: Order Comment: Speci men Type: BLOOD SPECIMENOrdering Facility: [facility] Address: [address] [place] [address] Performed By: #### 5 7021-8 ####[facility] LABCLIA [id number] [place] [address] [place] WBC (Bld) [#/Vol] 8.71 10*3/uL Normal 3.70-11.00 [facility] Comment on above: Order Comment: Speci men Type: BLOOD SPECIMENOrdering Facility: [facility] Address: [address] [place] [address] Performed By: #### 5 7021-8 ####[facility] LABCLIA [id number] [place] [id number] [place] CNOVon 05-12-2024 CNOV Normal [facility] Ferritin SerPl-mCncon 2024 Ferritin [Mass/Vol] 204.0 ng/mL Normal 30.3-565.7 [facility] Comment on above: Order Comment: Speci men Type: BLOOD SPECIMENOrdering Facility: [facility] Address: [address] [place] [address] Performed By: #### 5 0190-8, 30450-5, 2275- ####[facility] LABCLIA [id number] [address] [address] [place] HISTORY PHYSICALon HISTORY PHYSICAL Normal [facility] Iron and Iron binding capaci ty panelon 05-12-2024 Iron [Mass/Vol] 81 ug/dL Normal 41-186 [facility] Comment on above: Order Comment: Speci men Type: BLOOD SPECIMENOrdering Facility: [facility] Address: [address] [place] [address] Performed By: #### 5 0190-8, 80577-1, 2275-06 ####[facility] LABCLIA [id number] [place] [id number] [place] Iron binding capacity [Mass/Vol] 342 ug/dL Normal 232-386 [facility] Comment on above: Order Comment: Speci men Type: BLOOD SPECIMENOrdering Facility: [facility] Address: [address] [place] [address] Performed By: #### 5 0190-8, 80537-8, 2275-06 ####[facility] LABCLIA [id number] [place] [id number] [place] Iron/TIBC [Molar ratio] 23.7 % Normal 15.0-57.0 [facility] Comment on above: Order Comment: Speci men Type: BLOOD SPECIMENOrdering Facility: [facility] Address: [address] [place] [address] Performed By: #### 5 0190-8, 47609-2, 2275-06 ####[facility] LABCLIA [id number] [place] [id number] [place] STAPHYLOCOCCUS AUREUS AND MR SA SCREEN, PCR, NASALon 05-12-2024 S. aureus and MRSA panel BARBARA+probe (Nose) Not detected Normal Not Detected [facility] Comment on above: Order Comment: Speci ayad Type: SWABOrdering Facility: [facility] Address: [address] [place] [address] Performed By: #### S APCR ####[facility] LABCLIA [id number] [place] [address] [place] TYPE AND SCREEN,30 DAYon ABO group Nom (Bld) O [facility] Blood group antibody screen Ql Negative [facility] Rh Nom (Bld) Negative [facility] ABO O Normal [facility] Comment on above: Order Comment: Speci men Type: BLOOD SPECIMENOrdering Facility: [facility] Address: [address] [place] [address] Performed By: #### T SCR30 ####[facility] BLOOD BANKCLIA [id number] [address] [place] Rh Nom (Bld) Negative Normal [facility] Comment on above: Order Comment: Smitai ayad Type: BLOOD SPECIMENOrdering Facility: [facility] Address: [address] [place] [address] Performed By: #### T SCR30 ####[facility] BLOOD BANKCLIA [id number] [place] [address] [place] MR Cervical spine WO contras ton 02-21-2024 IMPRESSION: Advanced multilevel degenerative canal stenoses, most pronounced at C5-6 where there is severe canal narrowing with significant cord compression. No definite cord signal abnormality, although degree of canal stenosis in this region somewhat limits evaluation for cord signal abnormality. Additional severe canal stenoses at C4-5 and C6-7, with areas of cord compression and deformity as discussed Severe scattered neural foraminal stenoses, most pronounced at C3-4 on the right, C4-5 on the left, C5-6 bilaterally, and C6-7 bilaterally. Questionable partial ossification of the posterior longitudinal ligament from C3 to C5 which would be better evaluated on the basis of CT. Anatomic Variant: None. Assume 7 cervical vertebrae with counting from the craniocervical junction. COMMUNICATION: Communicated to ALFONSO LOYD on 02/21/2024 5:11 PM via [employer] staff message. [employer] Buffing Machine Operator: CITLALLI Transcribe Date/Time: Feb 21 2024 4:44P Dictated by : KEVIN MASON MD This examination was interpreted and the report reviewed and electronically signed by: KEVIN MASON MD on Feb 21 2024 8:57PM [facility] DIVISION OF RADIOLOGY * * *Final Report* * * DATE OF EXAM: Feb 21 2024 4:37PM QBM [id number] - MRI CERVICAL SPINE WO IVCON / PROCEDURE REASON: Spinal stenosis of cervical region * * * * Physician Interpretation * * * * EXAMINATION: MRI CERVICAL SPINE WO IVCON CLINICAL HISTORY: Spinal stenosis of cervical region TECHNIQUE: Routine cervical spine MR protocol without gadolinium. MQ: [id number] COMPARISON: None available RESULT: Counting reference: Craniocervical junction. Anatomic Variants: None. Localizer images: No additional findings Alignment: Straightening of the normal cervical lordosis. Craniocervical junction: Craniocervical junction is normal. Cord: Multilevel areas of cord deformity/compression, as described below. No definite cord signal abnormality. Bone marrow signal/fracture: There is a T1/T2 hyperintense focus within the T1 vertebral body which likely represents an intraosseous hemangioma or area of focal fat. No evidence of prior fracture. Multilevel disc height loss and degenerative endplate changes. There could be an element of ossification of the posterior longitudinal ligament from C3 to C5. Cervical soft tissues: The paraspinal soft tissues are within normal limits. C2-C3: No significant canal stenosis. Mild bilateral neural foraminal stenosis due to uncovertebral and facet hypertrophy. C3-C4: Moderate to severe canal stenosis with contributions from a disc bulge with overlying osteophytes and right paracentral protrusion and dorsal ligamentum flavum thickening, causing complete effacement of the ventral and dorsal CSF spaces. There could be partial ossification of the posterior longitudinal ligament in this region. There is right ventral cord flattening. Severe right and moderate left neural foraminal stenosis due to uncovertebral and facet hypertrophy. C4-C5: Severe canal stenosis with contributions from a disc osteophyte complex/protrusion eccentric to the left, as well as dorsal ligamentum flavum thickening, causing complete effacement of the ventral and dorsal CSF spaces and left ventral cord deformity. There could be ossification of the posterior longitudinal ligament in this region. Moderate right and severe left neural foraminal stenosis due to uncovertebral and facet hypertrophy. C5-C6: Severe canal stenosis with contributions from a large suspected disc extrusion with superior migration, and potential osteophyte, as well as dorsal ligamentum flavum thickening, causing complete circumferential effacement of CSF. There is significant ventral cord compression and mild dorsal cord compression. There could be ossification of the posterior longitudinal ligament in this region Severe bilateral neural foraminal stenosis due to uncovertebral and facet hypertrophy. C6-C7: Severe canal stenosis with contributions from a disc extrusion with superior migration and probable underlying osteophyte, as well as dorsal ligamentum flavum thickening. There is complete effacement of the ventral and dorsal CSF spaces with mild ventral cord deformity. Moderate to severe right and severe left neural foraminal stenosis due to uncovertebral and facet hypertrophy. C7-T1: No significant canal stenosis. Moderate bilateral neural foraminal stenosis due to uncovertebral and facet hypertrophy DIVISION OF RADIOLOGY Provider, [facility] - 02/21/2024 * * *Final Report* * * DATE OF EXAM: Feb 21 2024 4:37PM QBM [id number] - MRI CERVICAL SPINE WO IVCON / PROCEDURE REASON: Spinal stenosis of cervical region * * * * Physician Interpretation * * * * EXAMINATION: MRI CERVICAL SPINE WO IVCON CLINICAL HISTORY: Spinal stenosis of cervical region TECHNIQUE: Routine cervical spine MR protocol without gadolinium. MQ: [id number] COMPARISON: None available RESULT: Counting reference: Craniocervical junction. Anatomic Variants: None. Localizer images: No additional findings Alignment: Straightening of the normal cervical lordosis. Craniocervical junction: Craniocervical junction is normal. Cord: Multilevel areas of cord deformity/compression, as described below. No definite cord signal abnormality. Bone marrow signal/fracture: There is a T1/T2 hyperintense focus within the T1 vertebral body which likely represents an intraosseous hemangioma or area of focal fat. No evidence of prior fracture. Multilevel disc height loss and degenerative endplate changes. There could be an element of ossification of the posterior longitudinal ligament from C3 to C5. Cervical soft tissues: The paraspinal soft tissues are within normal limits. C2-C3: No significant canal stenosis. Mild bilateral neural foraminal stenosis due to uncovertebral and facet hypertrophy. C3-C4: Moderate to severe canal stenosis with contributions from a disc bulge with overlying osteophytes and right paracentral protrusion and dorsal ligamentum flavum thickening, causing complete effacement of the ventral and dorsal CSF spaces. There could be partial ossification of the posterior longitudinal ligament in this region. There is right ventral cord flattening. Severe right and moderate left neural foraminal stenosis due to uncovertebral and facet hypertrophy. C4-C5: Severe canal stenosis with contributions from a disc osteophyte complex/protrusion eccentric to the left, as well as dorsal ligamentum flavum thickening, causing complete effacement of the ventral and dorsal CSF spaces and left ventral cord deformity. There could be ossification of the posterior longitudinal ligament in this region. Moderate right and severe left neural foraminal stenosis due to uncovertebral and facet hypertrophy. C5-C6: Severe canal stenosis with contributions from a large suspected disc extrusion with superior migration, and potential osteophyte, as well as dorsal ligamentum flavum thickening, causing complete circumferential effacement of CSF. There is significant ventral cord compression and mild dorsal cord compression. There could be ossification of the posterior longitudinal ligament in this region Severe bilateral neural foraminal stenosis due to uncovertebral and facet hypertrophy. C6-C7: Severe canal stenosis with contributions from a disc extrusion with superior migration and probable underlying osteophyte, as well as dorsal ligamentum flavum thickening. There is complete effacement of the ventral and dorsal CSF spaces with mild ventral cord deformity. Moderate to severe right and severe left neural foraminal stenosis due to uncovertebral and facet hypertrophy. C7-T1: No significant canal stenosis. Moderate bilateral neural foraminal stenosis due to uncovertebral and facet hypertrophy IMPRESSION IMPRESSION: Advanced multilevel degenerative canal stenoses, most pronounced at C5-6 where there is severe canal narrowing with significant cord compression. No definite cord signal abnormality, although degree of canal stenosis in this region somewhat limits evaluation for cord signal abnormality. Additional severe canal stenoses at C4-5 and C6-7, with areas of cord compression and deformity as discussed Severe scattered neural foraminal stenoses, most pronounced at C3-4 on the right, C4-5 on the left, C5-6 bilaterally, and C6-7 bilaterally. Questionable partial ossification of the posterior longitudinal ligament from C3 to C5 which would be better evaluated on the basis of CT. Anatomic Variant: None. Assume 7 cervical vertebrae with counting from the craniocervical junction. COMMUNICATION: Communicated to ALFONSO LOYD on 02/21/2024 5:11 PM via [employer] staff message. [employer] Machine Operator: CITLALLI Transcribe Date/Time: Feb 21 2024 4:44P Dictated by : KEVIN MASON MD This examination was interpreted and the report reviewed and electronically signed by: KEVIN MASON MD on Feb 21 2024 8:57PM EST [facility] Study observation (narrative) [facility] MR Cervical spine WO contras tOrdered By: [facility] Provider on 02-21-2024 [facility] MRI CERVICAL SPINE WO IVCONo n 02-21-2024 MRI CERVICAL SPINE WO IVCON Normal [facility] CNPNon 02-03-2024 CNPN Normal [facility] CNOVon 01-13-2024 CNOV Normal [facility] CT LUMBAR SPINE WO IVCONon 1 03-14-2023 CT LUMBAR SPINE WO IVCON Normal [facility] CT Lumbar spine WO contrasto n 01-13-2024 IMPRESSION: Interval L4-5 right facetectomy. Stable additional prior postoperative changes as described. Healing fracture along L5 pedicle screws. 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 Anatomic Lumbar Variant: Transitional L5 vertebral body. L4-5 is considered the level of the iliac crest and there are 5 lumbar-type vertebrae. [employer] Machine Operator: CITLALLI Transcribe Date/Time: Jan 13 2024 9:06A Dictated by : MORGAN SANCHEZ MD This examination was interpreted and the report reviewed and electronically signed by: ADALBERTO MAYS MD on Jan 13 2024 11:37AM [facility] DIVISION OF RADIOLOGY * * *Final Report* * * DATE OF EXAM: Jan 13 2024 8:57AM [facility] [place] [address] - CT LUMBAR SPINE WO IVCON / PROCEDURE REASON: Acute low back pain, unspecified back pain laterality, unspecified whether sciat * * * * Physician Interpretation * * * * EXAMINATION: CT LUMBAR SPINE WO IVCON CLINICAL HISTORY: Status post L2/L5 OLIF 08/19/2023 and right L4/5 facetectomy 10/02/2023. Persistent right foot dorsiflexion weakness one month postop. TECHNIQUE: Spiral, high resolution axial unenhanced images were obtained from the thoracolumbar junction to the sacrum with sagittal and coronal planar reconstructions. MQ: CTLSPWO_3 CT Radiation dose: Integrated Dose-Length Product (DLP) for this visit = 812 mGy*cm. CT Dose Reduction Employed: Automated exposure control(AEC) and iterative recon COMPARISON: CT lumbar spine 09/07/2023, MRI lumbar spine 09/10/2023 RESULT: Counting reference: Lumbosacral junction. For the purposes of this report, L4-5 is considered the level of the iliac crest and there are 5 lumbar-type vertebrae. Anatomic variant: Transitional L5 vertebral body. Building Associate (topogram) images: No additional findings. Alignment: There is mild levoscoliosis of the lumbar spine. Bone marrow /fracture: Osteopenic decreased bone density. Interval L4-5 right facetectomy. L3-L4 laminectomy. Interbody spaces at L2-L3, L3-L4, and L4-L5. L2-L5 posterior fusion with interpeduncular screws and rods. No evidence of hardware failure or periprosthetic lucency. Otherwise remote remaining surgical changes of L4-L3 decompression and L2-L3-L4-L5 bilateral pedicle screws. The pedicle screws are traversing through the bone without any extension into the central canal except for there is a small medial breech of the pedicle cortex without compromise of the subarticular recesses at L2 level. Remaining pedicle screws extending through the bone. Linear lucencies are identified in relation to the pedicle screws at L5 vertebral body best appreciated on coronal sequences seen on series 4 image 52 extending superiorly. These may represent remote hardware placement related fractures with partial healing. This does not extend through the opposite cortex and there is no clear displacement of the bony fragments. No evidence of a lytic or blastic process in the visualized spine. No evidence of additional fracture Paraspinal soft tissues: The paraspinal soft tissues planes are maintained. Sigmoid diverticulosis. Lower thoracic spine: The visualized lower thoracic bony canal and foramina are patent. T12 -- L1: Patent canal and foramina. L1 -- 2: Joint degeneration. Patent canal and foramina. L2 -- 3: Joint degeneration. Patent canal and right foramina. Moderate left subarticular recesses and foramina narrowing potentially impinging exiting left L2 and traversing left L3 nerves. L3 -- 4: Satisfactory decompression. Patent canal. Mild right and moderate left foramina narrowing. Left subarticular recesses disc osteophyte narrows it and potentially impinges upon the traversing left L4 nerve. L4 -- 5: Disc/joint degeneration. Patent canal. Soft tissue within the right subarticular recess and foramina is likely epidural scar encasing the exiting right L4 nerve. Patent left foramina. L5 -- S1: Patent canal and foramina (transitional vertebral body). Sacrum and iliac wings: The visualized sacrum and iliac wings are within normal limits. DIVISION OF RADIOLOGY Provider, [facility] - 01/13/2024 * * *Final Report* * * DATE OF EXAM: Jan 13 2024 8:57AM [facility] [place] [address] - CT LUMBAR SPINE WO IVCON / PROCEDURE REASON: Acute low back pain, unspecified back pain laterality, unspecified whether sciat * * * * Physician Interpretation * * * * EXAMINATION: CT LUMBAR SPINE WO IVCON CLINICAL HISTORY: Status post L2/L5 OLIF 08/19/2023 and right L4/5 facetectomy 10/02/2023. Persistent right foot dorsiflexion weakness one month postop. TECHNIQUE: Spiral, high resolution axial unenhanced images were obtained from the thoracolumbar junction to the sacrum with sagittal and coronal planar reconstructions. MQ: CTLSPWO_3 CT Radiation dose: Integrated Dose-Length Product (DLP) for this visit = 812 mGy*cm. CT Dose Reduction Employed: Automated exposure control(AEC) and iterative recon COMPARISON: CT lumbar spine 09/07/2023, MRI lumbar spine 09/10/2023 RESULT: Counting reference: Lumbosacral junction. For the purposes of this report, L4-5 is considered the level of the iliac crest and there are 5 lumbar-type vertebrae. Anatomic variant: Transitional L5 vertebral body. Building Associate (topogram) images: No additional findings. Alignment: There is mild levoscoliosis of the lumbar spine. Bone marrow /fracture: Osteopenic decreased bone density. Interval L4-5 right facetectomy. L3-L4 laminectomy. Interbody spaces at L2-L3, L3-L4, and L4-L5. L2-L5 posterior fusion with interpeduncular screws and rods. No evidence of hardware failure or periprosthetic lucency. Otherwise remote remaining surgical changes of L4-L3 decompression and L2-L3-L4-L5 bilateral pedicle screws. The pedicle screws are traversing through the bone without any extension into the central canal except for there is a small medial breech of the pedicle cortex without compromise of the subarticular recesses at L2 level. Remaining pedicle screws extending through the bone. Linear lucencies are identified in relation to the pedicle screws at L5 vertebral body best appreciated on coronal sequences seen on series 4 image 52 extending superiorly. These may represent remote hardware placement related fractures with partial healing. This does not extend through the opposite cortex and there is no clear displacement of the bony fragments. No evidence of a lytic or blastic process in the visualized spine. No evidence of additional fracture Paraspinal soft tissues: The paraspinal soft tissues planes are maintained. Sigmoid diverticulosis. Lower thoracic spine: The visualized lower thoracic bony canal and foramina are patent. T12 -- L1: Patent canal and foramina. L1 -- 2: Joint degeneration. Patent canal and foramina. L2 -- 3: Joint degeneration. Patent canal and right foramina. Moderate left subarticular recesses and foramina narrowing potentially impinging exiting left L2 and traversing left L3 nerves. L3 -- 4: Satisfactory decompression. Patent canal. Mild right and moderate left foramina narrowing. Left subarticular recesses disc osteophyte narrows it and potentially impinges upon the traversing left L4 nerve. L4 -- 5: Disc/joint degeneration. Patent canal. Soft tissue within the right subarticular recess and foramina is likely epidural scar encasing the exiting right L4 nerve. Patent left foramina. L5 -- S1: Patent canal and foramina (transitional vertebral body). Sacrum and iliac wings: The visualized sacrum and iliac wings are within normal limits. IMPRESSION IMPRESSION: Interval L4-5 right facetectomy. Stable additional prior postoperative changes as described. Healing fracture along L5 pedicle screws. 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 Anatomic Lumbar Variant: Transitional L5 vertebral body. L4-5 is considered the level of the iliac crest and there are 5 lumbar-type vertebrae. Silverware Buffing Machine Operator: CITLALLI Transcribe Date/Time: Jan 13 2024 9:06A Dictated by : MORGAN SANCHEZ MD This examination was interpreted and the report reviewed and electronically signed by: ADALBERTO MAYS MD on Jan 13 2024 11:37AM EST [facility] CT Lumbar spine WO contrastO rdered By: [facility] Provider on 01-13-2024 [facility](NEURO/NI)on 01-13-2024 Results can be seen in attached scanned documents. If you are a patient reviewing this test result, call the doctor who ordered the test with any questions. [facility] MR Lumbar spine WO contrasto n 01-13-2024 * * *Final Report* * * DATE OF EXAM: Jan 13 2024 8:38AM [facility] [id number] - MRI LUMBAR SPINE WO IVCON / PROCEDURE REASON: Adverse effect of treatment, sequela * * * * Physician Interpretation * * * * EXAMINATION: MRI THORACIC SPINE WO IVCON, MRI LUMBAR SPINE WO IVCON CLINICAL HISTORY: Adverse effect of treatment, sequela TECHNIQUE: Routine lumbosacral and thoracic spine MR protocol without gadolinium. MQ: [id number]_3 COMPARISON: Concurrent CT lumbar spine MRI lumbar spine 09/10/2023 RESULT: THORACIC: Counting reference: Craniocervical and lumbosacral junctions. For the purposes of this report, L4-5 is considered the level of the iliac crest and assume there are 5 lumbar-type vertebrae. Anatomic variant: None. Localizer images: Multilevel degenerative changes through the cervical spine such as at at C5-C6 causing at least moderate spinal canal stenosis. Mild dextrocurvature of the thoracolumbar spine centered at T12-L1 Alignment: Alignment is near anatomic. Cord: The thoracic spinal cord is within normal limits of signal intensity and morphology. Bone marrow signal/fracture: No evidence of pathologic marrow infiltration. No evidence of prior fracture. Multilevel mild and moderate disc height reduction and Schmorl's nodes. No marrow edema. Multilevel mild facet joint arthrosis. Thoracic soft tissues: The paraspinal soft tissues are within normal limits. Canal and foramina: Multilevel mild disc protrusion with partial effacement of the anterior subarachnoid space. At T12-L1, diffuse moderate disc height reduction, posterior disc bulge asymmetric to the right causing partial effacement of the anterior subarachnoid space and mild to moderate spinal canal stenosis and mild right foraminal stenosis. No left foraminal stenosis. Elsewhere, no significant spinal canal or foraminal stenosis. No mass effect upon the spinal cord. LUMBAR: Counting reference: Craniocervical and lumbosacral junctions. For the purposes of this report, L4-5 is considered the level of the iliac crest and assume there are 5 lumbar-type vertebrae. Anatomic variant: None. Localizer images: No additional findings. Alignment: Alignment is near anatomic. Mild dextrocurvature of the thoracolumbar spine centered at T12-L1. Bone marrow signal/fracture: Susceptibility artifacts from interbody spacers and posterior fusion hardware at L2-L5. Refer to concurrent CT lumbar spine for detailed evaluation of the hardware. No evidence of pathologic marrow infiltration in the visualized osseous structures. No evidence of prior fracture. Conus: The conus is within normal limits of signal intensity and morphology, and terminates at T12-L1. Paraspinal soft tissues: Postsurgical changes including fat stranding, soft tissue swelling, and scar formation. Loculated fluid collection centered at L4 laminectomy site in the right paramidline measuring 3.4 x 2.4 x 4.9 cm in axial and craniocaudal dimensions (18/30 and 15/10). Fluid collection is new in comparison to prior MRI lumbar spine 09/10/2023 L1-L2: Mild disc height reduction. Diffuse mild posterior disc bulge. Facet joint arthrosis. Prominent posterior epidural fat. Mild spinal canal stenosis. No foraminal stenosis. Mild narrowing of the bilateral lateral recesses. L2-L3: Limited evaluation due to susceptibility artifacts from fusion hardware and interbody spacers. Decompressed spinal canal. Moderate to severe left foraminal stenosis. Mild right foraminal stenosis. L3-L4: Limited evaluation due to susceptibility artifacts from fusion hardware and interbody spacers. Decompressed spinal canal. Bilateral moderate to severe foraminal stenosis. L4-L5: Limited evaluation due to susceptibility artifacts from fusion hardware and interbody spacers. Decompressed spinal canal. Severe right foraminal stenosis. Mild left foraminal stenosis. L5-S1: Rudimentary disc at L5-S1. Mild facet joint arthrosis. Canal and foramina are patent Sacrum and iliac wings: The visualized sacrum and iliac wings are within normal limits. The presacral soft tissues are normal in appearance. DIVISION OF RADIOLOGY Provider, [facility] - 01/13/2024 * * *Final Report* * * DATE OF EXAM: Jan 13 2024 8:38AM [facility] [id number] - MRI LUMBAR SPINE WO IVCON / PROCEDURE REASON: Adverse effect of treatment, sequela * * * * Physician Interpretation * * * * EXAMINATION: MRI THORACIC SPINE WO IVCON, MRI LUMBAR SPINE WO IVCON CLINICAL HISTORY: Adverse effect of treatment, sequela TECHNIQUE: Routine lumbosacral and thoracic spine MR protocol without gadolinium. MQ: MRTLWO_3 COMPARISON: Concurrent CT lumbar spine MRI lumbar spine 09/10/2023 RESULT: THORACIC: Counting reference: Craniocervical and lumbosacral junctions. For the purposes of this report, L4-5 is considered the level of the iliac crest and assume there are 5 lumbar-type vertebrae. Anatomic variant: None. Localizer images: Multilevel degenerative changes through the cervical spine such as at at C5-C6 causing at least moderate spinal canal stenosis. Mild dextrocurvature of the thoracolumbar spine centered at T12-L1 Alignment: Alignment is near anatomic. Cord: The thoracic spinal cord is within normal limits of signal intensity and morphology. Bone marrow signal/fracture: No evidence of pathologic marrow infiltration. No evidence of prior fracture. Multilevel mild and moderate disc height reduction and Schmorl's nodes. No marrow edema. Multilevel mild facet joint arthrosis. Thoracic soft tissues: The paraspinal soft tissues are within normal limits. Canal and foramina: Multilevel mild disc protrusion with partial effacement of the anterior subarachnoid space. At T12-L1, diffuse moderate disc height reduction, posterior disc bulge asymmetric to the right causing partial effacement of the anterior subarachnoid space and mild to moderate spinal canal stenosis and mild right foraminal stenosis. No left foraminal stenosis. Elsewhere, no significant spinal canal or foraminal stenosis. No mass effect upon the spinal cord. LUMBAR: Counting reference: Craniocervical and lumbosacral junctions. For the purposes of this report, L4-5 is considered the level of the iliac crest and assume there are 5 lumbar-type vertebrae. Anatomic variant: None. Localizer images: No additional findings. Alignment: Alignment is near anatomic. Mild dextrocurvature of the thoracolumbar spine centered at T12-L1. Bone marrow signal/fracture: Susceptibility artifacts from interbody spacers and posterior fusion hardware at L2-L5. Refer to concurrent CT lumbar spine for detailed evaluation of the hardware. No evidence of pathologic marrow infiltration in the visualized osseous structures. No evidence of prior fracture. Conus: The conus is within normal limits of signal intensity and morphology, and terminates at T12-L1. Paraspinal soft tissues: Postsurgical changes including fat stranding, soft tissue swelling, and scar formation. Loculated fluid collection centered at L4 laminectomy site in the right paramidline measuring 3.4 x 2.4 x 4.9 cm in axial and craniocaudal dimensions (18/30 and 15/10). Fluid collection is new in comparison to prior MRI lumbar spine 09/10/2023 L1-L2: Mild disc height reduction. Diffuse mild posterior disc bulge. Facet joint arthrosis. Prominent posterior epidural fat. Mild spinal canal stenosis. No foraminal stenosis. Mild narrowing of the bilateral lateral recesses. L2-L3: Limited evaluation due to susceptibility artifacts from fusion hardware and interbody spacers. Decompressed spinal canal. Moderate to severe left foraminal stenosis. Mild right foraminal stenosis. L3-L4: Limited evaluation due to susceptibility artifacts from fusion hardware and interbody spacers. Decompressed spinal canal. Bilateral moderate to severe foraminal stenosis. L4-L5: Limited evaluation due to susceptibility artifacts from fusion hardware and interbody spacers. Decompressed spinal canal. Severe right foraminal stenosis. Mild left foraminal stenosis. L5-S1: Rudimentary disc at L5-S1. Mild facet joint arthrosis. Canal and foramina are patent Sacrum and iliac wings: The visualized sacrum and iliac wings are within normal limits. The presacral soft tissues are normal in appearance. IMPRESSION IMPRESSION: * Susceptibility artifacts from posterior fusion hardware at L2 L5 and interbody spacers at L2-L3 through L4-L5. Refer to concurrent CT lumbar spine for detailed evaluation of the fusion hardware and interbody spacers. * Postsurgical changes from prior laminectomies between L2-L3 and L4-L5. In comparison to prior MRI lumbar spine 09/10/2023, interval fluid collection at the L4 laminectomy site on the right likely secondary to postoperative seroma versus pseudomeningocele. Differential also includes abscess formation, although thought to be less likely. Correlate clinically. Fluid sampling might be obtained if clinically judy (more content not included)... [facility] Study observation (narrative) [facility] MR Thoracic spine WO contras ton 01-13-2024 * * *Final Report* * * DATE OF EXAM: Jan 13 2024 8:38AM [id number] - MRI THORACIC SPINE WO IVCON / PROCEDURE REASON: Adverse effect of treatment, sequela * * * * Physician Interpretation * * * * EXAMINATION: MRI THORACIC SPINE WO IVCON, MRI LUMBAR SPINE WO IVCON CLINICAL HISTORY: Adverse effect of treatment, sequela TECHNIQUE: Routine lumbosacral and thoracic spine MR protocol without gadolinium. MQ: MRTLWO_3 COMPARISON: Concurrent CT lumbar spine MRI lumbar spine 09/10/2023 RESULT: THORACIC: Counting reference: Craniocervical and lumbosacral junctions. For the purposes of this report, L4-5 is considered the level of the iliac crest and assume there are 5 lumbar-type vertebrae. Anatomic variant: None. Localizer images: Multilevel degenerative changes through the cervical spine such as at at C5-C6 causing at least moderate spinal canal stenosis. Mild dextrocurvature of the thoracolumbar spine centered at T12-L1 Alignment: Alignment is near anatomic. Cord: The thoracic spinal cord is within normal limits of signal intensity and morphology. Bone marrow signal/fracture: No evidence of pathologic marrow infiltration. No evidence of prior fracture. Multilevel mild and moderate disc height reduction and Schmorl's nodes. No marrow edema. Multilevel mild facet joint arthrosis. Thoracic soft tissues: The paraspinal soft tissues are within normal limits. Canal and foramina: Multilevel mild disc protrusion with partial effacement of the anterior subarachnoid space. At T12-L1, diffuse moderate disc height reduction, posterior disc bulge asymmetric to the right causing partial effacement of the anterior subarachnoid space and mild to moderate spinal canal stenosis and mild right foraminal stenosis. No left foraminal stenosis. Elsewhere, no significant spinal canal or foraminal stenosis. No mass effect upon the spinal cord. LUMBAR: Counting reference: Craniocervical and lumbosacral junctions. For the purposes of this report, L4-5 is considered the level of the iliac crest and assume there are 5 lumbar-type vertebrae. Anatomic variant: None. Localizer images: No additional findings. Alignment: Alignment is near anatomic. Mild dextrocurvature of the thoracolumbar spine centered at T12-L1. Bone marrow signal/fracture: Susceptibility artifacts from interbody spacers and posterior fusion hardware at L2-L5. Refer to concurrent CT lumbar spine for detailed evaluation of the hardware. No evidence of pathologic marrow infiltration in the visualized osseous structures. No evidence of prior fracture. Conus: The conus is within normal limits of signal intensity and morphology, and terminates at T12-L1. Paraspinal soft tissues: Postsurgical changes including fat stranding, soft tissue swelling, and scar formation. Loculated fluid collection centered at L4 laminectomy site in the right paramidline measuring 3.4 x 2.4 x 4.9 cm in axial and craniocaudal dimensions (18/30 and 15/10). Fluid collection is new in comparison to prior MRI lumbar spine 09/10/2023 L1-L2: Mild disc height reduction. Diffuse mild posterior disc bulge. Facet joint arthrosis. Prominent posterior epidural fat. Mild spinal canal stenosis. No foraminal stenosis. Mild narrowing of the bilateral lateral recesses. L2-L3: Limited evaluation due to susceptibility artifacts from fusion hardware and interbody spacers. Decompressed spinal canal. Moderate to severe left foraminal stenosis. Mild right foraminal stenosis. L3-L4: Limited evaluation due to susceptibility artifacts from fusion hardware and interbody spacers. Decompressed spinal canal. Bilateral moderate to severe foraminal stenosis. L4-L5: Limited evaluation due to susceptibility artifacts from fusion hardware and interbody spacers. Decompressed spinal canal. Severe right foraminal stenosis. Mild left foraminal stenosis. L5-S1: Rudimentary disc at L5-S1. Mild facet joint arthrosis. Canal and foramina are patent Sacrum and iliac wings: The visualized sacrum and iliac wings are within normal limits. The presacral soft tissues are normal in appearance. DIVISION OF RADIOLOGY Provider, [facility] - 01/13/2024 * * *Final Report* * * DATE OF EXAM: Jan 13 2024 8:38AM QBM 0325 - MRI THORACIC SPINE WO IVCON / PROCEDURE REASON: Adverse effect of treatment, sequela * * * * Physician Interpretation * * * * EXAMINATION: MRI THORACIC SPINE WO IVCON, MRI LUMBAR SPINE WO IVCON CLINICAL HISTORY: Adverse effect of treatment, sequela TECHNIQUE: Routine lumbosacral and thoracic spine MR protocol without gadolinium. MQ: [id number] COMPARISON: Concurrent CT lumbar spine MRI lumbar spine 09/10/2023 RESULT: THORACIC: Counting reference: Craniocervical and lumbosacral junctions. For the purposes of this report, L4-5 is considered the level of the iliac crest and assume there are 5 lumbar-type vertebrae. Anatomic variant: None. Localizer images: Multilevel degenerative changes through the cervical spine such as at at C5-C6 causing at least moderate spinal canal stenosis. Mild dextrocurvature of the thoracolumbar spine centered at T12-L1 Alignment: Alignment is near anatomic. Cord: The thoracic spinal cord is within normal limits of signal intensity and morphology. Bone marrow signal/fracture: No evidence of pathologic marrow infiltration. No evidence of prior fracture. Multilevel mild and moderate disc height reduction and Schmorl's nodes. No marrow edema. Multilevel mild facet joint arthrosis. Thoracic soft tissues: The paraspinal soft tissues are within normal limits. Canal and foramina: Multilevel mild disc protrusion with partial effacement of the anterior subarachnoid space. At T12-L1, diffuse moderate disc height reduction, posterior disc bulge asymmetric to the right causing partial effacement of the anterior subarachnoid space and mild to moderate spinal canal stenosis and mild right foraminal stenosis. No left foraminal stenosis. Elsewhere, no significant spinal canal or foraminal stenosis. No mass effect upon the spinal cord. LUMBAR: Counting reference: Craniocervical and lumbosacral junctions. For the purposes of this report, L4-5 is considered the level of the iliac crest and assume there are 5 lumbar-type vertebrae. Anatomic variant: None. Localizer images: No additional findings. Alignment: Alignment is near anatomic. Mild dextrocurvature of the thoracolumbar spine centered at T12-L1. Bone marrow signal/fracture: Susceptibility artifacts from interbody spacers and posterior fusion hardware at L2-L5. Refer to concurrent CT lumbar spine for detailed evaluation of the hardware. No evidence of pathologic marrow infiltration in the visualized osseous structures. No evidence of prior fracture. Conus: The conus is within normal limits of signal intensity and morphology, and terminates at T12-L1. Paraspinal soft tissues: Postsurgical changes including fat stranding, soft tissue swelling, and scar formation. Loculated fluid collection centered at L4 laminectomy site in the right paramidline measuring 3.4 x 2.4 x 4.9 cm in axial and craniocaudal dimensions (18/30 and 15/10). Fluid collection is new in comparison to prior MRI lumbar spine 09/10/2023 L1-L2: Mild disc height reduction. Diffuse mild posterior disc bulge. Facet joint arthrosis. Prominent posterior epidural fat. Mild spinal canal stenosis. No foraminal stenosis. Mild narrowing of the bilateral lateral recesses. L2-L3: Limited evaluation due to susceptibility artifacts from fusion hardware and interbody spacers. Decompressed spinal canal. Moderate to severe left foraminal stenosis. Mild right foraminal stenosis. L3-L4: Limited evaluation due to susceptibility artifacts from fusion hardware and interbody spacers. Decompressed spinal canal. Bilateral moderate to severe foraminal stenosis. L4-L5: Limited evaluation due to susceptibility artifacts from fusion hardware and interbody spacers. Decompressed spinal canal. Severe right foraminal stenosis. Mild left foraminal stenosis. L5-S1: Rudimentary disc at L5-S1. Mild facet joint arthrosis. Canal and foramina are patent Sacrum and iliac wings: The visualized sacrum and iliac wings are within normal limits. The presacral soft tissues are normal in appearance. IMPRESSION IMPRESSION: * Susceptibility artifacts from posterior fusion hardware at L2 L5 and interbody spacers at L2-L3 through L4-L5. Refer to concurrent CT lumbar spine for detailed evaluation of the fusion hardware and interbody spacers. * Postsurgical changes from prior laminectomies between L2-L3 and L4-L5. In comparison to prior MRI lumbar spine 09/10/2023, interval fluid collection at the L4 laminectomy site on the right likely secondary to postoperative seroma versus pseudomeningocele. Differential also includes abscess formation, although thought to be less likely. Correlate clinically. Fluid sampling might be obtained if clinically a (more content not included)... [facility] MRI LUMBAR SPINE WO IVCONon 01-13-2024 MRI LUMBAR SPINE WO IVCON Invalid Interpretation Code [facility] MRI THORACIC SPINE WO IVCONo n 01-13-2024 MRI THORACIC SPINE WO IVCON Invalid Interpretation Code [facility] No Panel InformationOrdered By: [facility] Provider on 01-13-2024 Interpretation and review of laboratory results Abnormal [facility] Radiology Result ACTIONABLE Abnormal [facility] Comment on above: This report contains an incidental or actionable finding. This finding may be a new finding separate from the reason your provider ordered the imaging test or it may be an already known finding that needs additional or continued follow-up. Because of this incidental or actionable finding, you may need another test (imaging or a different type of test). Please contact your provider for the next steps. [facility] No Panel Informationon 01-12 IMPRESSION: * Susceptibility artifacts from posterior fusion hardware at L2 L5 and interbody spacers at L2-L3 through L4-L5. Refer to concurrent CT lumbar spine for detailed evaluation of the fusion hardware and interbody spacers. * Postsurgical changes from prior laminectomies between L2-L3 and L4-L5. In comparison to prior MRI lumbar spine 09/10/2023, interval fluid collection at the L4 laminectomy site on the right likely secondary to postoperative seroma versus pseudomeningocele. Differential also includes abscess formation, although thought to be less likely. Correlate clinically. Fluid sampling might be obtained if clinically appropriate. * No high-grade spinal canal stenosis. Varying degrees of foraminal narrowing as above including severe right foraminal stenosis at L4-L5 . * Degenerative changes through the cervical spine such as at C5-C6 at least moderate spinal canal stenosis. Further imaging with dedicated nonurgent MRI cervical spine might be obtained if clinically deemed appropriate. Anatomic Thoracic/Lumbar Variant: None. L4-5 is considered the level of the iliac crest and assume there are 5 lumbar-type vertebrae. Rudimentary disc at L5-S1 and S1-S2. ACTIONABLE RESULT: FOLLOW-UP Acuity: Actionable Findings: Neurological System-SPINE Routing Code: NI_2 Recommendation: Unlisted Recommendation (see report) Time Frame: At the discretion of the clinical team. COMMUNICATION: Results will be communicated with the ordering provider via [employer] staff message or phone message by [employer] within 2 business days of report finalization. --END OF FINDING-- ACTIONABLE RESULT: FOLLOW-UP Acuity: Actionable Findings: Neurological System-SPINE Routing Code: NI_2 Recommendation: Unlisted Recommendation (see report) Time Frame: At the discretion of the clinical team. COMMUNICATION: Results will be communicated with the ordering provider via [employer] staff message or phone message by [facility] within 2 business days of report finalization. --END OF FINDING-- Silverware Buffing Machine Operator: CITLALLI Transcribe Date/Time: Jan 13 2024 8:57A Dictated by : TWAN SANTO MD This examination was interpreted and the report reviewed and electronically signed by: TWAN SANTO MD on Jan 13 2024 3:52PM [facility] DIVISION OF RADIOLOGY Radiology Study observation (narrative) [facility] Ambulatory Visit Summaryon 1 Ambulatory Visit Summary Ambulatory Visit Summary BRADEN RODRIGUEZ :1955 Visit Date:12/16/2023 Ambulatory Visit Instructions Your Diagnosis Tubulovillous adenoma of colon Sigmoid diverticulosis Your Care Team Attending Physician - VAMSI JERNIGAN, Camryn Rodriguez Primary Care Physician - Ant JERNIGAN, Ester This Is Your Medications List carvedilol (carvedilol 25 mg Tab) cyclobenzaprine (cyclobenzaprine 10 mg Tab) magnesium oxide (magnesium oxide 400 mg Tab) pregabalin (Lyrica 50 mg Cap) tizanidine (tiZANidine 4 mg Tab) Procedures Performed Colonoscopy (11/26/2023), Exploration of spinal fusion (10/02/2023), Laminectomy, facetectomy [...] Revision of fusion of lumbar spine. Medications What How Much When Instructions Unchanged carvedilol (carvedilol 25 mg Tab) 1 Tablets By Mouth Every day Unchanged cyclobenzaprine (cyclobenzaprine 10 mg Tab) 1 Tablets By Mouth 3 times a day as needed for for spasm Unchanged magnesium oxide (magnesium oxide 400 mg Tab) 1 Tablets By Mouth Every day Unchanged pregabalin (Lyrica 50 mg Cap) 1 Capsules By Mouth At bedtime Unchanged tizanidine (tiZANidine 4 mg Tab) 2 Tablets By Mouth At bedtime Allergies Robaxin (Patient reported problems) penicillin (Rash) Problems Ongoing - Any problem that you are currently receiving treatment for. 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 Epigastric pain Inflamed skin tag Neoplasm of uncertain behavior of skin Seborrheic keratosis Patient Survey You may receive a survey via text or e-mail asking about your office visit. Please share your experience with us by completing your survey. We appreciate your feedback and thank you for choosing us for your care. Normal [facility] General Surgery Office/Clini c Noteon 12-16-2023 General Surgery Office/Clinic Note General Surgery Office/Clinic Note Chief Complaint colonoscopy follow up HPI Staff 20 day post operative follow up post colonoscopy with cecal polypectomy. History of Present Illness s/p colonoscopy for colorectal screening; patient had 1.5 cm tubulovillous adenoma removed from cecum; also moderate sigmoid diverticulosis noted; doing well, denies abd pain or blood in stools. Review of Systems ROS - Provider Constitutional: [...] been reviewed and are negative or noncontributory. Assessment/Plan 1. Tubulovillous adenoma of colon (D12.6: Benign neoplasm of colon, unspecified) recommend surveillance colonoscopy in 1 year, call sooner if problems/questions. 2. Sigmoid diverticulosis (K57.30: Diverticulosis of large intestine without perforation or abscess without bleeding) high fiber diet and daily fiber supplement. 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 Ventricular premature contractions Historical Epigastric pain Inflamed skin tag Neoplasm of uncertain behavior of skin Seborrheic keratosis Procedure/Surgical History Colonoscopy (11/26/2023), Exploration of spinal fusion (10/02/2023), Laminectomy, facetectomy [...] Lyrica 50 mg Cap, 50 mg= 1 cap(s), Oral, Bedtime magnesium oxide 400 mg Tab, 400 mg= 1 tab(s), Oral, Daily tiZANidine 4 mg Tab, 8 mg= 2 tab(s), Oral, Bedtime Allergies Robaxin (Patient reported problems) penicillin (Rash) Social History Alcohol - Denies Alcohol Use, 05/27/2019 Substance Abuse - Denies Substance Abuse, 05/27/2019 Tobacco - Denies Tobacco Use, 04/22/2022 Never (less than 100 in lifetime) Tobacco Use:. Never Smokeless Tobacco Use:., 11/11/2023 Family History Breast cancer: Brother. Diabetes mellitus type 2: Father. Hypertension: Mother and Father. Melanoma: Father and Brother. Primary malignant neoplasm of skin: Father. Immunizations Vaccine Date Status Comments influenza virus vaccine, inactivated - Not Given Patient Refuses influenza virus vaccine, inactivated 12/29/2020 Recorded SARS-CoV-2 (COVID-19) mRNA BNT-162b2 vax 12/29/2020 Recorded SARS-CoV-2 (COVID-19) mRNA BNT-162b2 vax 06/09/2020 Recorded SARS-CoV-2 (COVID-19) mRNA BNT-162b2 vax 05/19/2020 Recorded 2022-03-29: TPV60 influenza virus vaccine, live, trivalent - Not Given Patient Refuses Normal [facility] Comment on above: Result Comment: Elec tronically Signed By: VAMSI JERNIGAN, Camryn Baker\Date and Time Signed: 12/16/23 13:13 EDT Reminderson 12-16-2023 Reminders Reminders From: Caroline Bird LPN To: N - Clinical; Sent: 12/16/2023 13:08:21 EDT Show up: 10/25/2024 07:00:00 EDT Subject: colonoscopy follow up Due Date/Time: 11/25/2024 07:00:00 EDT Reminder/Recall Patient due for screening colonoscopy 11/25/2024 due to history of villous adenoma. Correction, this is surveillance. Normal [facility] CNPNon 12-05-2023 CNPN Normal [facility] Balta 11-26-2023 L Specimen: [id number] Received: 11/27/23 Status: CASANDRA Thurman Num: [id number] Spec Type: Surgical Subm Dr: Camryn Agustin MD FACS Tissues: A Colon Biopsy (CECAL COLON POLYP) Procedures: HE/2, Gross/Micro L4 Age/ Patient Sex Location Account Attending Physician Braden Rodriguez 68/M LABELL [id number] Camryn Agustin MD FACS SPEC NUM: [id number] RECD: 11/27/23 STATUS: CASANDRA THURMAN NUM: [id number] KIM: 11/26/[address] [facility] DR: Camryn Agustin MD FACS ENTERED: 11/27/[address] [facility] [address]: Javed,Lab SPEC TYPE: Surgical DEPT: ANI MCWILLIAMS ENTERED BY: [id number] RECV BY: [id number] ORDERED: HE/2, Gross/Micro L4 ORDERED: HE/2, Gross/Micro [...] in cassette A1. CPT Codes 88 305 Specimen: [id number] Received: 11/27/23 Status: CASANDRA Thurman Num: [id number] Spec Type: Surgical Subm Dr: Camryn Agustin MD FACS Tissues: A Colon Biopsy (CECAL COLON POLYP) Procedures: HE/2, Gross/Micro L4 Patient: Braden Rodriguez [id number] (Continued) Signed (signature on file) Edward Byers MD 12/02/23 1557 Normal [facility] CNOVon 11-12-2023 CNOV Normal [facility] XR LUMBAR 2V AP/LATon 2023 XR LUMBAR 2V AP/LAT Normal [facility] XR Lumbar spine AP and Later dustin 11-12-2023 IMPRESSION: Intact spinal fusion hardware. Vertebral body heights and sagittal alignment are maintained. [employer] Operator: PSCB Transcribe Date/Time: Nov 12 2023 1:25P Dictated by : LONNIE HERNANDEZ MD This examination was interpreted and the report reviewed and electronically signed by: LONNIE HERNANDEZ MD on Nov 12 2023 1:25PM [facility] DIVISION OF RADIOLOGY * * *Final Report* [...] See impression DIVISION OF RADIOLOGY Provider, Félix Rahman - 11/12/2023 * * *Final Report* * [...] body heights and sagittal alignment are maintained. Silver[employer] Buffing Machine Operator: CITLALLI Transcribe Date/Time: Nov 12 2023 1:25P Dictated by : LONNIE HERNANDEZ MD This examination was interpreted and the report reviewed and electronically signed by: LONNIE HERNANDEZ MD on Nov 12 2023 1:25PM EST [facility] Radiology Study observation (narrative) [facility] XR Lumbar spine AP and Later alOrdered By: [facility] Provider on 11-12-2023 [facility] CNPNon 11-05-2023 CNPN Normal [facility] CNPNon 10-16-2023 CNPN Normal [facility] CNCOon 10-06-2023 CNCO Letter Text Normal [facility] Basic metabolic 2000 panelon 10-04-2023 Anion gap [Moles/Vol] 10 mmol/L Normal 8-15 [facility] Comment on above: Order Comment: Speci men Type: BLOOD SPECIMENOrdering Facility: [facility] Address: [address] [place] [address] Performed By: #### 2 4321-2 ####[facility] LABIA [id number] [place] [address] [place] Calcium [Mass/Vol] 9.4 mg/dL Normal 8.5-10.2 [facility] Comment on above: Order Comment: Speci men Type: BLOOD SPECIMENOrdering Facility: [facility] Address: [address] [place] [address] Performed By: #### 2 4321-2 ####[facility] LABCLIA [id number] [place] [address] [place] Chloride [Moles/Vol] 104 mmol/L Normal 98-107 [facility] Comment on above: Order Comment: Speci men Type: BLOOD SPECIMENOrdering Facility: [facility] Address: [address] [place] [address] Performed By: #### 2 4321-2 ####[facility] LABCLIA [id number] [place] [id number] [place] CO2 [Moles/Vol] 27 mmol/L Normal 22-30 [facility] Comment on above: Order Comment: Speci men Type: BLOOD SPECIMENOrdering Facility: [facility] Address: [address] [place] [address] Performed By: #### 2 4321-2 ####[facility] LABCLIA [id number] [place] [address] [place] Creatinine [Mass/Vol] 0.83 mg/dL Normal 0.73-1.22 [facility] Comment on above: Order Comment: Speci men Type: BLOOD SPECIMENOrdering Facility: [facility] Address: [address] [place] [address] Performed By: #### 2 4321-2 ####[facility] LABIA [id number] [place] [address] [place] Creatinine and Glomerular filtration rate.predicted panel (S/P/Bld) 97 mL/min/1.73m??? Normal >=60 [facility] Comment on above: Order Comment: Speci men Type: BLOOD SPECIMENOrdering Facility: [facility] Address: [address] [place] [address] Result Comment: Yesica mated Glomerular Filtration Rate [...] actual GFR. Performed By: #### 2 4321-2 ####[facility] LABCLIA [id number] [place] [id number] [place] Glucose [Mass/Vol] 100 mg/dL High 74-99 [facility] Comment on above: Order Comment: Speci men Type: BLOOD SPECIMENOrdering Facility: [facility] Address: [address] [place] [address] Result Comment: The [place] [employer] (ADA) provides guidance for cutoff values for fasting glucose and random glucose. The ADA defines fasting as no caloric intake for at least 8 hours. Fasting plasma glucose results between 100 to 125 mg/dL indicate increased risk for diabetes (prediabetes).Fasting plasma glucose results greater than or equal to 126 mg/dL meet the criteria for diagnosis of diabetes. In the absence of unequivocal hyperglycemia, results should be confirmed by repeat testing. In a patient with classic symptoms of hyperglycemia or hyperglycemic crisis, random plasma glucose results greater than or equal to 200 mg/dL meet the criteria for diagnosis of diabetes.Reference: Standards of Medical Care in Diabetes 2016, [place] [employer]. Diabetes Care. 2016.39(Suppl 1). Performed By: #### 2 4321-2 ####[facility] LABCLIA [id number] [place] [address] [place] Potassium [Moles/Vol] 3.9 mmol/L Normal 3.7-5.1 [facility] Comment on above: Order Comment: Speci men Type: BLOOD SPECIMENOrdering Facility: [facility] Address: [address] [place] [address] Performed By: #### 2 4321-2 ####[facility] LABCLIA [id number] [place] [address] [place] Sodium [Moles/Vol] 141 mmol/L Normal 136-144 [facility] Comment on above: Order Comment: Speci men Type: BLOOD SPECIMENOrdering Facility: [facility] Address: [address] [place] [address] Performed By: #### 2 4321-2 ####[facility] LABCLIA [id number] [place] [address] [place] Urea nitrogen [Mass/Vol] 15 mg/dL Normal 9-24 [facility] Comment on above: Order Comment: Speci men Type: BLOOD SPECIMENOrdering Facility: [facility] Address: [address] [place] [address] Performed By: #### 2 4321-2 ####[facility] LABIA [id number] [place] [address] [place] CBC panel Auto (Bld)on 10-03 Erythrocyte distribution width (RBC) [Ratio] 12.4 % Normal 11.5-15.0 [facility] Comment on above: Order Comment: Speci men Type: BLOOD SPECIMENOrdering Facility: [facility] Address: [address] [place] [address] Performed By: #### 5 8410-2 ####[facility] [id number] [place] [address] [place] Hematocrit (Bld) [Volume fraction] 37.6 % Low 39.0-51.0 [facility] Comment on above: Order Comment: Speci men Type: BLOOD SPECIMENOrdering Facility: [facility] Address: [address] [place] [address] Performed By: #### 5 8410-2 ####[facility] [id number] [place] [address] [place] Hemoglobin (Bld) [Mass/Vol] 12.1 g/dL Low 13.0-17.0 [facility] Comment on above: Order Comment: Speci men Type: BLOOD SPECIMENOrdering Facility: [facility] Address: [address] [place] [address] Performed By: #### 5 8410-2 ####[facility] LABIA [id number] [place] [address] [place] MCH (RBC) [Entitic mass] 32.5 pg Normal 26.0-34.0 [facility] Comment on above: Order Comment: Speci men Type: BLOOD SPECIMENOrdering Facility: [facility] Address: [address] [place] [address] Performed By: #### 5 8410-2 ####[facility] LABCLIA [id number] [place] [address] [place] MCHC (RBC) [Mass/Vol] 32.2 g/dL Normal 30.5-36.0 [facility] Comment on above: Order Comment: Speci men Type: BLOOD SPECIMENOrdering Facility: [facility] Address: [address] [place] [address] Performed By: #### 5 8410-2 ####[facility] LABCLIA [id number] [place] [address] [place] MCV (RBC) [Entitic vol] 101.1 fL High 80.0-100.0 [facility] Comment on above: Order Comment: Speci men Type: BLOOD SPECIMENOrdering Facility: [facility] Address: [address] [place] [address] Performed By: #### 5 8410-2 ####[facility] LABIA [id number] [place] [address] [place] Nucleated RBC (Bld) [#/Vol] 10*3/uL Normal <0.01 [facility] Comment on above: Order Comment: Speci men Type: BLOOD SPECIMENOrdering Facility: [facility] Address: [address] [place] [address] Performed By: #### 5 8410-2 ####[facility] LABIA [id number] [place] [address] [place] Platelet mean volume (Bld) [Entitic vol] 10.1 fL Normal 9.0-12.7 [facility] Comment on above: Order Comment: Speci men Type: BLOOD SPECIMENOrdering Facility: [facility] Address: [address] [place] [address] Performed By: #### 5 8410-2 ####[facility] LABIA [id number] [place] [address] [place] Platelets (Bld) [#/Vol] 352 10*3/uL Normal 150-400 [facility] Comment on above: Order Comment: Speci men Type: BLOOD SPECIMENOrdering Facility: [facility] Address: [address] [place] [address] Performed By: #### 5 8410-2 ####[facility] LABCLIA [id number] [place] [address] [place] RBC (Bld) [#/Vol] 3.72 10*6/uL Low 4.20-6.00 [facility] Comment on above: Order Comment: Speci men Type: BLOOD SPECIMENOrdering Facility: [facility] Address: [address] [place] [address] Performed By: #### 5 8410-2 ####[facility] LABCLIA [id number] [place] [address] [place] WBC (Bld) [#/Vol] 10.84 10*3/uL Normal 3.70-11.00 [facility] Comment on above: Order Comment: Speci men Type: BLOOD SPECIMENOrdering Facility: [facility] Address: [address] [place] [address] Performed By: #### 5 8410-2 ####[facility] LABCLIA [id number] [place] [address] [place] THERAPY NTon 10-04-2023 THERAPY NT Normal [facility] Basic metabolic 2000 panelon 10-03-2023 Anion gap [Moles/Vol] 10 mmol/L Normal 8-15 [facility] Comment on above: Order Comment: Speci men Type: BLOOD SPECIMENOrdering Facility: [facility] Address: [address] [place] [address] Performed By: #### 2 4321-2 ####[facility] LABCLIA [id number] [place] [address] [place] Calcium [Mass/Vol] 9.0 mg/dL Normal 8.5-10.2 [facility] Comment on above: Order Comment: Speci men Type: BLOOD SPECIMENOrdering Facility: [facility] Address: [address] [place] [address] Performed By: #### 2 4321-2 ####[facility] LABCLIA [id number] [place] [address] [place] Chloride [Moles/Vol] 105 mmol/L Normal 98-107 [facility] Comment on above: Order Comment: Speci men Type: BLOOD SPECIMENOrdering Facility: [facility] Address: [address] [place] [address] Performed By: #### 2 4321-2 ####[facility] LABCLIA [id number] [place] [address] [place] CO2 [Moles/Vol] 23 mmol/L Normal 22-30 [facility] Comment on above: Order Comment: Speci men Type: BLOOD SPECIMENOrdering Facility: [facility] Address: [address] [place] [address] Performed By: #### 2 4321-2 ####[facility] LABCLIA [id number] [place] [address] [place] Creatinine [Mass/Vol] 0.92 mg/dL Normal 0.73-1.22 [facility] Comment on above: Order Comment: Speci men Type: BLOOD SPECIMENOrdering Facility: [facility] Address: [address] [place] [address] Performed By: #### 2 4321-2 ####[facility] LABCLIA [id number] [place] [address] [place] Creatinine and Glomerular filtration rate.predicted panel (S/P/Bld) 92 mL/min/1.73m??? Normal >=60 [facility] Comment on above: Order Comment: Speci men Type: BLOOD SPECIMENOrdering Facility: [facility] Address: [address] [place] [address] Result Comment: Yesica mated Glomerular Filtration Rate [...] actual GFR. Performed By: #### 2 4321-2 ####[facility] LABIA [id number] [place] [address] [place] Glucose [Mass/Vol] 121 mg/dL High 74-99 [facility] Comment on above: Order Comment: Specmartha lion Type: BLOOD SPECIMENOrdering Facility: [facility] Address: [address] [place] [address] Result Comment: The [place] [employer] (ADA) provides guidance for cutoff values for fasting glucose and random glucose. The ADA defines fasting as no caloric intake for at least 8 hours. Fasting plasma glucose results between 100 to 125 mg/dL indicate increased risk for diabetes (prediabetes).Fasting plasma glucose results greater than or equal to 126 mg/dL meet the criteria for diagnosis of diabetes. In the absence of unequivocal hyperglycemia, results should be confirmed by repeat testing. In a patient with classic symptoms of hyperglycemia or hyperglycemic crisis, random plasma glucose results greater than or equal to 200 mg/dL meet the criteria for diagnosis of diabetes.Reference: Standards of Medical Care in Diabetes 2016, [place] [employer]. Diabetes Care. 2016.39(Suppl 1). Performed By: #### 2 4321-2 ####[facility] LABIA [id number] [place] [address] [place] Potassium [Moles/Vol] 4.0 mmol/L Normal 3.7-5.1 [facility] Comment on above: Order Comment: Roberto Carlos lion Type: BLOOD SPECIMENOrdering Facility: [facility] Address: [address] [place] [address] Performed By: #### 2 4321-2 ####[facility] LABIA [id number] [place] [address] [place] Sodium [Moles/Vol] 138 mmol/L Normal 136-144 [facility] Comment on above: Order Comment: Speci men Type: BLOOD SPECIMENOrdering Facility: [facility] Address: [address] [place] [address] Performed By: #### 2 4321-2 ####[facility] LABCLIA [id number] [place] [address] [place] Urea nitrogen [Mass/Vol] 21 mg/dL Normal 9-24 [facility] Comment on above: Order Comment: Speci men Type: BLOOD SPECIMENOrdering Facility: [facility] Address: [address] [place] [address] Performed By: #### 2 4321-2 ####[facility] LABIA [id number] [place] [address] [place] CASE MGT INIT ASSESon 2023 CASE MGT INIT ASSES Normal [facility] CBC panel Auto (Bld)on 10-02 Erythrocyte distribution width (RBC) [Ratio] 11.9 % Normal 11.5-15.0 [facility] Comment on above: Order Comment: Speci men Type: BLOOD SPECIMENOrdering Facility: [facility] Address: [address] [place] [address] Performed By: #### 5 8410-2 ####[facility] LABIA [id number] [place] [address] [place] Hematocrit (Bld) [Volume fraction] 35.0 % Low 39.0-51.0 [facility] Comment on above: Order Comment: Speci men Type: BLOOD SPECIMENOrdering Facility: [facility] Address: [address] [place] [address] Performed By: #### 5 8410-2 ####[facility] LABCLIA [id number] [place] [address] [place] Hemoglobin (Bld) [Mass/Vol] 11.5 g/dL Low 13.0-17.0 [facility] Comment on above: Order Comment: Speci men Type: BLOOD SPECIMENOrdering Facility: [facility] Address: [address] [place] [address] Performed By: #### 5 8410-2 ####[facility] LABCLIA [id number] [place] [address] [place] MCH (RBC) [Entitic mass] 32.0 pg Normal 26.0-34.0 [facility] Comment on above: Order Comment: Speci men Type: BLOOD SPECIMENOrdering Facility: [facility] Address: [address] [place] [address] Performed By: #### 5 8410-2 ####[facility] LABIA [id number] [address] [place] MCHC (RBC) [Mass/Vol] 32.9 g/dL Normal 30.5-36.0 [facility] Comment on above: Order Comment: Speci men Type: BLOOD SPECIMENOrdering Facility: [facility] Address: [address] [place] [address] Performed By: #### 5 8410-2 ####[facility] LABIA [id number] [place] [address] [place] MCV (RBC) [Entitic vol] 97.5 fL Normal 80.0-100.0 [facility] Comment on above: Order Comment: Speci men Type: BLOOD SPECIMENOrdering Facility: [facility] Address: [address] [place] [address] Performed By: #### 5 8410-2 ####[facility] LABIA [id number] [place] [address] [place] Nucleated RBC (Bld) [#/Vol] 10*3/uL Normal <0.01 [facility] Comment on above: Order Comment: Speci men Type: BLOOD SPECIMENOrdering Facility: [facility] Address: [address] [place] [address] Performed By: #### 5 8410-2 ####[facility] LABIA [id number] [place] [address] [place] Platelet mean volume (Bld) [Entitic vol] 10.4 fL Normal 9.0-12.7 [facility] Comment on above: Order Comment: Speci men Type: BLOOD SPECIMENOrdering Facility: [facility] Address: [address] [place] [address] Performed By: #### 5 8410-2 ####[facility] LABIA [id number] [place] [address] [place] Platelets (Bld) [#/Vol] 354 10*3/uL Normal 150-400 [facility] Comment on above: Order Comment: Speci men Type: BLOOD SPECIMENOrdering Facility: [facility] Address: [address] [place] [address] Performed By: #### 5 8410-2 ####[facility] LABIA [id number] [place] [address] [place] RBC (Bld) [#/Vol] 3.59 10*6/uL Low 4.20-6.00 [facility] Comment on above: Order Comment: Speci men Type: BLOOD SPECIMENOrdering Facility: [facility] Address: [address] [place] [address] Performed By: #### 5 8410-2 ####[facility] LABIA [id number] [place] [address] [place] WBC (Bld) [#/Vol] 11.20 10*3/uL High 3.70-11.00 [facility] Comment on above: Order Comment: Speci men Type: BLOOD SPECIMENOrdering Facility: [facility] Address: [address] [place] [address] Performed By: #### 5 8410-2 ####[facility] LABCLIA [id number] [place] [address] [place] CNDSon 10-03-2023 CNDS Normal [facility] THERAPY NTon 10-03-2023 THERAPY NT Normal [facility] THERAPY NT Normal [facility] ANES POSTPROC EVALon 024 ANES POSTPROC EVAL Normal [facility] ANES PRE-OPon 10-02-2023 ANES PRE-OP Normal [facility] BRIEF OP NOTon 10-02-2023 BRIEF OP NOT Normal [facility] OPERATIVE NOon 10-02-2023 OPERATIVE NO Normal [facility] TYPE + SCREENon 10-02-2023 ABO O Normal [facility] Comment on above: Order Comment: Speci men Type: BLOOD SPECIMENOrdering Facility: [facility] Address: [address] [place] [address] Performed By: #### T SCR ####[facility] BANKCLIA [id number] [place] [address] [place] HISTORICAL AB SCR STATUS Negative Normal [facility] Comment on above: Order Comment: Speci men Type: BLOOD SPECIMENOrdering Facility: [facility] Address: [address] [place] [address] Performed By: #### T SCR ####[facility]LO[facility] BANKCLIA [id number] [place] [address] [place] Rh Nom (Bld) Negative Normal [facility] Comment on above: Order Comment: Speci men Type: BLOOD SPECIMENOrdering Facility: [facility] Address: [address] [place] [address] Performed By: #### T SCR ####[facility] BLOOD BANKCLIA [id number] [place] [id number] [place] TYPE AND SCREEN EXPIRATION 10/05/2023 23:59 Normal [facility] Comment on above: Order Comment: Speci men Type: BLOOD SPECIMENOrdering Facility: [facility] Address: [address] [place] [address] Performed By: #### T SCR ####[facility] [id number] [place] [address] [place] XR LUMBAR SPECIFY 1Von 10-01 XR LUMBAR SPECIFY 1V Normal [facility] CNNURSEon 09-30-2023 CNNURSE Normal [facility] CNPNon 09-30-2023 CNPN Normal [facility] CNPNon 09-24-2023 CNPN Normal [facility] CNPNon 09-16-2023 CNPN Normal [facility] CNCOon 09-15-2023 CNCO Letter Text Normal [facility] ALLIED HEALTHon 09-10-2023 ALLIED HEALTH Normal [facility] Basic metabolic 2000 panelon 09-10-2023 Anion gap [Moles/Vol] 10 mmol/L Normal 8-15 [facility] Comment on above: Order Comment: Speci men Type: BLOOD SPECIMENOrdering Facility: [facility] Address: [address] [place] [address] Performed By: #### 2 4321-2 ####[facility] LABIA [id number] [place] [address] [place] Calcium [Mass/Vol] 9.6 mg/dL Normal 8.5-10.2 [facility] Comment on above: Order Comment: Speci men Type: BLOOD SPECIMENOrdering Facility: [facility] Address: [address] [place] [address] Performed By: #### 2 4321-2 ####[facility] LABIA [id number] [place] [address] [place] Chloride [Moles/Vol] 102 mmol/L Normal 98-107 [facility] Comment on above: Order Comment: Speci men Type: BLOOD SPECIMENOrdering Facility: [facility] Address: [address] [place] [address] Performed By: #### 2 4321-2 ####[facility] LABCLIA [id number] [place] [address] [place] CO2 [Moles/Vol] 27 mmol/L Normal 22-30 [facility] Comment on above: Order Comment: Speci men Type: BLOOD SPECIMENOrdering Facility: [facility] Address: [address] [place] [address] Performed By: #### 2 4321-2 ####[facility] LABIA [id number] [place] [address] [place] Creatinine [Mass/Vol] 0.88 mg/dL Normal 0.73-1.22 [facility] Comment on above: Order Comment: Speci men Type: BLOOD SPECIMENOrdering Facility: [facility] Address: [address] [place] [address] Performed By: #### 2 4321-2 ####[facility] [id number] [place] [address] [place] Creatinine and Glomerular filtration rate.predicted panel (S/P/Bld) 95 mL/min/1.73m??? Normal >=60 [facility] Comment on above: Order Comment: Speci men Type: BLOOD SPECIMENOrdering Facility: [facility] Address: [address] [place] [address] Result Comment: Yesica mated Glomerular Filtration Rate [...] actual GFR. Performed By: #### 2 4321-2 ####[facility] LABIA [id number] [place] [address] [place] Glucose [Mass/Vol] 82 mg/dL Normal 74-99 [facility] Comment on above: Order Comment: Speci men Type: BLOOD SPECIMENOrdering Facility: [facility] Address: [address] [place] [address] Result Comment: The [place] [employer] (ADA) provides guidance for cutoff values for fasting glucose and random glucose. The ADA defines fasting as no caloric intake for at least 8 hours. Fasting plasma glucose results between 100 to 125 mg/dL indicate increased risk for diabetes (prediabetes).Fasting plasma glucose results greater than or equal to 126 mg/dL meet the criteria for diagnosis of diabetes. In the absence of unequivocal hyperglycemia, results should be confirmed by repeat testing. In a patient with classic symptoms of hyperglycemia or hyperglycemic crisis, random plasma glucose results greater than or equal to 200 mg/dL meet the criteria for diagnosis of diabetes.Reference: Standards of Medical Care in Diabetes 2016, [place] [employer]. Diabetes Care. 2016.39(Suppl 1). Performed By: #### 2 4321-2 ####[facility] LABCLIA [id number] [place] [address] [place] Potassium [Moles/Vol] 4.3 mmol/L Normal 3.7-5.1 [facility] Comment on above: Order Comment: Speci men Type: BLOOD SPECIMENOrdering Facility: [facility] Address: [address] [place] [address] Performed By: #### 2 4321-2 ####[facility] LABIA [id number] [place] [address] [place] Sodium [Moles/Vol] 139 mmol/L Normal 136-144 [facility] Comment on above: Order Comment: Speci men Type: BLOOD SPECIMENOrdering Facility: [facility] Address: [address] [place] [address] Performed By: #### 2 4321-2 ####[facility] LABIA [id number] [place] [address] [place] Urea nitrogen [Mass/Vol] 22 mg/dL Normal 9-24 [facility] Comment on above: Order Comment: Speci men Type: BLOOD SPECIMENOrdering Facility: [facility] Address: [address] [place] [address] Performed By: #### 2 4321-2 ####[facility] LABCLIA [id number] [address] [address] [place] CASE MANAGEMon 09-10-2023 CASE MANAGEM Normal [facility] CASE MANAGEM Normal [facility] CNDSon 09-10-2023 CNDS Normal [facility] MRI LUMBAR SPINE WO IVCONon 09-10-2023 MRI LUMBAR SPINE WO IVCON Normal [facility] THERAPY NTon 09-10-2023 THERAPY NT Normal [facility] CASE MANAGEMon 09-09-2023 CASE MANAGEM Normal [facility] Magnesium SerPl-mCncon 09-08 Magnesium [Mass/Vol] 2.1 mg/dL Normal 1.7-2.3 [facility] Comment on above: Order Comment: Speci men Type: BLOOD SPECIMENOrdering Facility: [facility] Address: [address] [place] [address] Performed By: #### 1 9123-9, 40201-8 ####[facility] LABCLIA [id number] [place] [id number] [place] Renal function 2000 panelon 09-09-2023 Albumin [Mass/Vol] 3.9 g/dL Normal 3.9-4.9 [facility] Comment on above: Order Comment: Speci men Type: BLOOD SPECIMENOrdering Facility: [facility] Address: [address] [place] [address] Performed By: #### 1 9123-9, 74871-9 ####[facility] LABCLIA [id number] [place] [id number] [place] Anion gap [Moles/Vol] 13 mmol/L Normal 8-15 [facility] Comment on above: Order Comment: Speci men Type: BLOOD SPECIMENOrdering Facility: [facility] Address: [address] [place] [address] Performed By: #### 1 9123-9, 98032-2 ####[facility] LABCLIA [id number] [address] [address] [place] Calcium [Mass/Vol] 9.7 mg/dL Normal 8.5-10.2 [facility] Comment on above: Order Comment: Speci men Type: BLOOD SPECIMENOrdering Facility: [facility] Address: [address] [place] [address] Performed By: #### 1 9123-9, 66608-1 ####[facility] LABCLIA [id number] [place] [address] [place] Chloride [Moles/Vol] 101 mmol/L Normal 98-107 [facility] Comment on above: Order Comment: Speci men Type: BLOOD SPECIMENOrdering Facility: [facility] Address: [address] [place] [address] Performed By: #### 1 9123-9, 37707-5 ####[facility] LABCLIA [id number] [place] [address] [place] CO2 [Moles/Vol] 25 mmol/L Normal 22-30 [facility] Comment on above: Order Comment: Speci men Type: BLOOD SPECIMENOrdering Facility: [facility] Address: [address] [place] [address] Performed By: #### 1 9123-9, 39970-0 ####[facility] LABCLIA [id number] [place] [address] [place] Creatinine [Mass/Vol] 0.99 mg/dL Normal 0.73-1.22 [facility] Comment on above: Order Comment: Speci men Type: BLOOD SPECIMENOrdering Facility: [facility] Address: [address] [place] [address] Performed By: #### 1 9123-9, 02569-3 ####[facility] LABCLIA [id number] [place] [address] [place] Creatinine and Glomerular filtration rate.predicted panel (S/P/Bld) 84 mL/min/1.73m??? Normal >=60 [facility] Comment on above: Order Comment: Roberto Carlos lion Type: BLOOD SPECIMENOrdering Facility: [facility] Address: [address] [place] [address] Result Comment: Yesica mated Glomerular Filtration Rate [...] accurately reflect actual GFR. Performed By: #### 1 9123-9, 27672-3 ####[facility] LABCLIA [id number] [place] [address] [place] Glucose [Mass/Vol] 123 mg/dL High 74-99 [facility] Comment on above: Order Comment: Roberto Carlos lion Type: BLOOD SPECIMENOrdering Facility: [facility] Address: [address] [place] [address] Result Comment: The [place] [employer] (ADA) provides guidance for cutoff values for fasting glucose and random glucose. The ADA defines fasting as no caloric intake for at least 8 hours. Fasting plasma glucose results between 100 to 125 mg/dL indicate increased risk for diabetes (prediabetes).Fasting plasma glucose results greater than or equal to 126 mg/dL meet the criteria for diagnosis of diabetes. In the absence of unequivocal hyperglycemia, results should be confirmed by repeat testing. In a patient with classic symptoms of hyperglycemia or hyperglycemic crisis, random plasma glucose results greater than or equal to 200 mg/dL meet the criteria for diagnosis of diabetes.Reference: Standards of Medical Care in Diabetes 2016, [place] [employer]. Diabetes Care. 2016.39(Suppl 1). Performed By: #### 1 9123-9, 96748-0 ####[facility] LABCLIA [id number] [place] [address] [place] Phosphate [Mass/Vol] 3.3 mg/dL Normal 2.7-4.8 [facility] Comment on above: Order Comment: Speci men Type: BLOOD SPECIMENOrdering Facility: [facility] Address: [address] [place], [place] [id number] Performed By: #### 1 9123-9, 56087-5 ####[facility] LABCLIA [id number] [address] [address] [place] Potassium [Moles/Vol] 4.4 mmol/L Normal 3.7-5.1 [facility] Comment on above: Order Comment: Speci men Type: BLOOD SPECIMENOrdering Facility: [facility] Address: [address] [place] [address] Performed By: #### 1 9123-9, 02366-4 ####[facility] LABCLIA [id number] [place] [address] [place] Sodium [Moles/Vol] 139 mmol/L Normal 136-144 [facility] Comment on above: Order Comment: Speci men Type: BLOOD SPECIMENOrdering Facility: [facility] Address: [address] [place] [address] Performed By: #### 1 9123-9, 47978-8 ####[facility] LABCLIA [id number] [place] [address] [place] Urea nitrogen [Mass/Vol] 25 mg/dL High 9-24 [facility] Comment on above: Order Comment: Speci men Type: BLOOD SPECIMENOrdering Facility: [facility] Address: [address] [place], [place] [id number] Performed By: #### 1 9123-9, 57542-6 ####[facility] LABCLIA [id number] [place] [id number] [place] THERAPY NTon 09-09-2023 THERAPY NT Normal [facility] THERAPY NT Normal [facility] CASE MGT INIT ASSESon 2023 CASE MGT INIT ASSES Normal [facility] ED PROV NOTEon 09-08-2023 ED PROV NOTE Normal [facility] HISTORY PHYSICALon HISTORY PHYSICAL [facility] CBC W Auto Differential pane l (Bld)on 09-07-2023 Basophils (Bld) [#/Vol] 0.00 10*3/uL Normal <0.11 [facility] Comment on above: Order Comment: Speci men Type: BLOOD SPECIMENOrdering Facility: [facility] Address: [address] [place] [address] Performed By: #### 5 7021-8, 4536-7 ####[facility] LABCLIA [id number] [place] [address] [place] Basophils/100 WBC (Bld) 0.0 % Normal [facility] Comment on above: Order Comment: Speci men Type: BLOOD SPECIMENOrdering Facility: [facility] Address: [address] [place] [address] Performed By: #### 5 7021-8, 4536-7 ####[facility] LABCLIA [id number] [place] [address] [place] Differential cell count method Nom (Bld) Manual Normal [facility] Comment on above: Order Comment: Speci men Type: BLOOD SPECIMENOrdering Facility: [facility] Address: [address] [place] [address] Performed By: #### 5 7021-8, 7-7 ####[facility] LABCLIA [id number] [place] [address] [place] Eosinophils (Bld) [#/Vol] 0.00 10*3/uL Normal <0.46 [facility] Comment on above: Order Comment: Speci men Type: BLOOD SPECIMENOrdering Facility: [facility] Address: [address] [place] [address] Performed By: #### 5 7021-8, 7-7 ####[facility] LABCLIA [id number] [place] [address] [place] Eosinophils/100 WBC (Bld) 0.0 % Normal [facility] Comment on above: Order Comment: Speci men Type: BLOOD SPECIMENOrdering Facility: [facility] Address: [address] [place] [address] Performed By: #### 5 7021-8, 4537-7 ####[facility] LABCLIA [id number] [place] [address] [place] Erythrocyte distribution width (RBC) [Ratio] 13.3 % Normal 11.5-15.0 [facility] Comment on above: Order Comment: Speci men Type: BLOOD SPECIMENOrdering Facility: [facility] Address: [address] [place] [address] Performed By: #### 5 7021-8, 4537-7 ####[facility] LABCLIA [id number] [place] [address] [place] Hematocrit (Bld) [Volume fraction] 38.1 % Low 39.0-51.0 [facility] Comment on above: Order Comment: Speci men Type: BLOOD SPECIMENOrdering Facility: [facility] Address: [address] [place] [address] Performed By: #### 5 7021-8, 7-7 ####[facility] LABCLIA [id number] [place] [address] [place] Hemoglobin (Bld) [Mass/Vol] 12.5 g/dL Low 13.0-17.0 [facility] Comment on above: Order Comment: Speci men Type: BLOOD SPECIMENOrdering Facility: [facility] Address: [address] [place] [address] Performed By: #### 5 7021-8, 4537-7 ####[facility] LABCLIA [id number] [place] [address] [place] Lymphocytes (Bld) [#/Vol] 1.64 10*3/uL Normal 1.00-4.00 [facility] Comment on above: Order Comment: Speci men Type: BLOOD SPECIMENOrdering Facility: [facility] Address: [address] [place] [address] Performed By: #### 5 7021-8, 4536-7 ####[facility] LABCLIA [id number] [place] [address] [place] Lymphocytes/100 WBC (Bld) 12.2 % Normal [facility] Comment on above: Order Comment: Speci men Type: BLOOD SPECIMENOrdering Facility: [facility] Address: [address] [place] [address] Performed By: #### 5 7021-8, 4536-7 ####[facility] LABCLIA [id number] [place] [address] [place] MCH (RBC) [Entitic mass] 32.6 pg Normal 26.0-34.0 [facility] Comment on above: Order Comment: Speci men Type: BLOOD SPECIMENOrdering Facility: [facility] Address: [address] [place] [address] Performed By: #### 5 7021-8, 4536-7 ####[facility] LABIA [id number] [place] [address] [place] MCHC (RBC) [Mass/Vol] 32.8 g/dL Normal 30.5-36.0 [facility] Comment on above: Order Comment: Speci men Type: BLOOD SPECIMENOrdering Facility: [facility] Address: [address] [place] [address] Performed By: #### 5 7021-8, 4536-7 ####[facility] LABIA [id number] [place] [address] [place] MCV (RBC) [Entitic vol] 99.2 fL Normal 80.0-100.0 [facility] Comment on above: Order Comment: Speci men Type: BLOOD SPECIMENOrdering Facility: [facility] Address: [address] [place], [place] [id number] Performed By: #### 5 7021-8, 7-7 ####[facility] LABCLIA [id number] [place] [address] [place] Monocytes (Bld) [#/Vol] 1.40 10*3/uL High <0.87 [facility] Comment on above: Order Comment: Speci men Type: BLOOD SPECIMENOrdering Facility: [facility] Address: [address] [place] [address] Performed By: #### 5 7021-8, 4536-7 ####[facility] LABCLIA [id number] [place] [address] [place] Monocytes/100 WBC (Bld) 10.4 % Normal [facility] Comment on above: Order Comment: Speci men Type: BLOOD SPECIMENOrdering Facility: [facility] Address: [address] [place] [address] Performed By: #### 5 7021-8, 4536-7 ####[facility] LABCLIA [id number] [place] [address] [place] Neutrophils (Bld) [#/Vol] 10.39 10*3/uL High 1.45-7.50 [facility] Comment on above: Order Comment: Speci men Type: BLOOD SPECIMENOrdering Facility: [facility] Address: [address] [place] [address] Performed By: #### 5 7021-8, 4536-7 ####[facility] LABCLIA [id number] [place] [address] [place] Neutrophils/100 WBC (Bld) 77.4 % Normal [facility] Comment on above: Order Comment: Speci men Type: BLOOD SPECIMENOrdering Facility: [facility] Address: [address] [place] [address] Performed By: #### 5 7021-8, 4537-7 ####[facility] LABCLIA [id number] [place] [address] [place] Nucleated RBC (Bld) [#/Vol] 10*3/uL Normal <0.01 [facility] Comment on above: Order Comment: Speci men Type: BLOOD SPECIMENOrdering Facility: [facility] Address: [address] [place] [address] Performed By: #### 5 7021-8, 4536-7 ####[facility] LABCLIA [id number] [place] [address] [place] Nucleated RBC/100 WBC (Bld) [Ratio] 0.0 /100 WBC Normal [facility] Comment on above: Order Comment: Speci men Type: BLOOD SPECIMENOrdering Facility: [facility] Address: [address] [place] [address] Performed By: #### 5 7021-8, 4536-7 ####[facility] LABIA [id number] [place] [address] [place] Platelet mean volume (Bld) [Entitic vol] 9.9 fL Normal 9.0-12.7 [facility] Comment on above: Order Comment: Speci men Type: BLOOD SPECIMENOrdering Facility: [facility] Address: [address] [place] [address] Performed By: #### 5 7021-8, 4536-7 ####[facility] LABIA [id number] [place] [address] [place] Platelets (Bld) [#/Vol] 285 10*3/uL Normal 150-400 [facility] Comment on above: Order Comment: Speci men Type: BLOOD SPECIMENOrdering Facility: [facility] Address: [address] [place] [address] Performed By: #### 5 7021-8, 4536-7 ####[facility] LABCLIA [id number] [place] [address] [place] Platelets Estimate (Bld) [#/Vol] Adequate Normal [facility] Comment on above: Order Comment: Speci men Type: BLOOD SPECIMENOrdering Facility: [facility] Address: [address] [place] [address] Performed By: #### 5 7021-8, 4537-7 ####[facility] LABCLIA [id number] [address] [address] [place] RBC (Bld) [#/Vol] 3.84 10*6/uL Low 4.20-6.00 [facility] Comment on above: Order Comment: Speci men Type: BLOOD SPECIMENOrdering Facility: [facility] Address: [address] [place] [address] Performed By: #### 5 7021-8, 4537-7 ####[facility] LABCLIA [id number] [place] [address] [place] RED CELL MORPH Reviewed: unremarkable Normal [facility] Comment on above: Order Comment: Speci men Type: BLOOD SPECIMENOrdering Facility: [facility] Address: [address] [place] [address] Performed By: #### 5 7021-8, 4537-7 ####[facility] LABCLIA [id number] [place] [address] [place] WBC (Bld) [#/Vol] 13.43 10*3/uL High 3.70-11.00 [facility] Comment on above: Order Comment: Speci men Type: BLOOD SPECIMENOrdering Facility: [facility] Address: [address] [place] [address] Performed By: #### 5 7021-8, 4537-7 ####[facility] LABCLIA [id number] [place] [address] [place] CONSULTon 09-07-2023 CONSULT Normal [facility] CRP SerPl-mCncon 09-07-2023 CRP [Mass/Vol] mg/L Normal <0.9 [facility] Comment on above: Order Comment: Speci men Type: BLOOD SPECIMENOrdering Facility: [facility] Address: [address] [place] [address] Performed By: #### 2 432-8, 1987-07, , ####[facility] LABCLIA [id number] [place] [id number] [place] LUMBAR SPINE WO IVCONon 0 09-07-2023 CT LUMBAR SPINE WO IVCON Normal [facility] metabolic 2000 panelon 09-07-2023 Albumin [Mass/Vol] 4.0 g/dL Normal 3.9-4.9 [facility] Comment on above: Order Comment: Speci men Type: BLOOD SPECIMENOrdering Facility: [facility] Address: [address] [place] [address] Performed By: #### 2 4328, 1987-07, , ####[facility] LABCLIA [id number] [place] [address] [place] ALP [Catalytic activity/Vol] 136 U/L High 38-113 [facility] Comment on above: Order Comment: Speci men Type: BLOOD SPECIMENOrdering Facility: [facility] Address: [address] [place] [address] Performed By: #### 2 4323-8, 1987-07, , ####[facility] LABCLIA [id number] [place] [id number] [place] ALT [Catalytic activity/Vol] 20 U/L Normal 10-54 [facility] Comment on above: Order Comment: Speci men Type: BLOOD SPECIMENOrdering Facility: [facility] Address: [address] [place] [address] Performed By: #### 2 4323-8, 1987-07, , ####[facility] LABCLIA [id number] [place] [id number] [place] Anion gap [Moles/Vol] 10 mmol/L Normal 8-15 [facility] Comment on above: Order Comment: Speci men Type: BLOOD SPECIMENOrdering Facility: [facility] Address: [address] [place] [address] Performed By: #### 2 432-8, 1987-07, , 13804-3 ####[facility] LABCLIA [id number] [place] [address] [place] AST [Catalytic activity/Vol] 19 U/L Normal 14-40 [facility] Comment on above: Order Comment: Speci men Type: BLOOD SPECIMENOrdering Facility: [facility] Address: [address] [place] [address] Performed By: #### 2 4328, 1987-07, , 00703-7 ####[facility] LABCLIA [id number] [place] [address] [place] Bilirubin [Mass/Vol] 0.6 mg/dL Normal 0.2-1.3 [facility] Comment on above: Order Comment: Speci men Type: BLOOD SPECIMENOrdering Facility: [facility] Address: [address] [place] [address] Performed By: #### 2 4328, 1987-07, , 84850-0 ####[facility] LABCLIA [id number] [place] [id number] [place] Calcium [Mass/Vol] 9.7 mg/dL Normal 8.5-10.2 [facility] Comment on above: Order Comment: Speci men Type: BLOOD SPECIMENOrdering Facility: [facility] Address: [address] [place] [address] Performed By: #### 2 432-8, 1987-07, , 46134-9 ####[facility] LABCLIA [id number] [place] [address] [place] Chloride [Moles/Vol] 105 mmol/L Normal 98-107 [facility] Comment on above: Order Comment: Speci men Type: BLOOD SPECIMENOrdering Facility: [facility] Address: [address] [place] [address] Performed By: #### 2 4323-8, 1987-07, , 67236-6 ####[facility] LABCLIA [id number] [place] [address] [place] CO2 [Moles/Vol] 26 mmol/L Normal 22-30 [facility] Comment on above: Order Comment: Speci men Type: BLOOD SPECIMENOrdering Facility: [facility] Address: [address] [place] [address] Performed By: #### 2 4323-8, 1987-07, , 29911-4 ####[facility] LABCLIA [id number] [place] [address] [place] Creatinine [Mass/Vol] 0.93 mg/dL Normal 0.73-1.22 [facility] Comment on above: Order Comment: Speci men Type: BLOOD SPECIMENOrdering Facility: [facility] Address: [address] [place] [address] Performed By: #### 2 4323-8, 1987-07, , 61708-5 ####[facility] LABCLIA [id number] [place] [address] [place] Creatinine and Glomerular filtration rate.predicted panel (S/P/Bld) 91 mL/min/1.73m??? Normal >=60 [facility] Comment on above: Order Comment: Speci men Type: BLOOD SPECIMENOrdering Facility: [facility] Address: [address] [place] [address] Result Comment: Yesica mated Glomerular Filtration Rate [...] reflect actual GFR. Performed By: #### 2 4322-10, 1987-07, , ####[facility] LABCLIA [id number] [facility] [address] [address] [place] Glucose [Mass/Vol] 90 mg/dL Normal 74-99 [facility] Comment on above: Order Comment: Roberto Carlos lion Type: BLOOD SPECIMENOrdering Facility: [facility] Address: [address] [place] [address] Result Comment: The [place] [employer] (ADA) provides guidance for cutoff values for fasting glucose and random glucose. The ADA defines fasting as no caloric intake for at least 8 hours. Fasting plasma glucose results between 100 to 125 mg/dL indicate increased risk for diabetes (prediabetes).Fasting plasma glucose results greater than or equal to 126 mg/dL meet the criteria for diagnosis of diabetes. In the absence of unequivocal hyperglycemia, results should be confirmed by repeat testing. In a patient with classic symptoms of hyperglycemia or hyperglycemic crisis, random plasma glucose results greater than or equal to 200 mg/dL meet the criteria for diagnosis of diabetes.Reference: Standards of Medical Care in Diabetes 2016, [place] [employer]. Diabetes Care. 2016.39(Suppl 1). Performed By: #### 2 4322-10, 1987-07, , 54819-8 ####[facility] LABCLIA [id number] [facility] [place] [id number] [place] Potassium [Moles/Vol] 3.8 mmol/L Normal 3.7-5.1 [facility] Comment on above: Order Comment: Roberto Carlos lion Type: BLOOD SPECIMENOrdering Facility: [facility] Address: [address] [place] [address] Performed By: #### 2 4322-10, 1987-07, , 18160-2 ####[facility] LABCLIA [id number] [facility] [place] [id number] [address] [place] Protein [Mass/Vol] 6.0 g/dL Low 6.3-8.0 [facility] Comment on above: Order Comment: Speci men Type: BLOOD SPECIMENOrdering Facility: [facility] Address: [address] [place] [address] Performed By: #### 2 4323-8, 1987-07, , 10072-6 ####[facility] LABCLIA [id number] [place] [address] [place] Sodium [Moles/Vol] 141 mmol/L Normal 136-144 [facility] Comment on above: Order Comment: Speci men Type: BLOOD SPECIMENOrdering Facility: [facility] Address: [address] [place] [address] Performed By: #### 2 432-8, 1987-07, , 05870-6 ####[facility] LABCLIA [id number] [place] [address] [place] Urea nitrogen [Mass/Vol] 29 mg/dL High 9-24 [facility] Comment on above: Order Comment: Speci men Type: BLOOD SPECIMENOrdering Facility: [facility] Address: [address] [place] [address] Performed By: #### 2 4323-8, 1987-07, , 19547-1 ####[facility] LABCLIA [id number] [place] [id number] [place] ESR Westergren method (Bld) [Velocity]on 09-07-2023 ESR (Bld) [Velocity] 5 mm/h Normal 0-15 [facility] Comment on above: Order Comment: Speci men Type: BLOOD SPECIMENOrdering Facility: [facility] Address: [address] [place] [address] Performed By: #### 5 7021-8, 4537-7 ####[facility] LABCLIA [id number] [place] [address] [place] Magnesium [facility] 09-06 Magnesium [Mass/Vol] 2.1 mg/dL Normal 1.7-2.3 [facility] Comment on above: Order Comment: Speci men Type: BLOOD SPECIMENOrdering Facility: [facility] Address: [address] [place] [address] Performed By: #### 2 4323-8, 1987-07, , 48745-9 ####[facility] LABIA [id number] [place] [address] [place] NT-proBNP [facility] 09-06 Natriuretic peptide.B prohormone N-Terminal [Mass/Vol] 153 pg/mL High <125 [facility] Comment on above: Order Comment: Speci men Type: BLOOD SPECIMENOrdering Facility: [facility] Address: [address] [place] [address] Performed By: #### 2 4323-8, 1987-07, , 45954-8 ####[facility] LABIA [id number] [place] [address] [place] US DVT LOWER BILon US DVT LOWER JAYDON Normal [facility] Urinalysis complete panel (U )on 09-07-2023 Bacteria LM.HPF (Urine sed) [#/Area] Negative Normal Negative [facility] Comment on above: Order Comment: Speci men Type: URINE SPECIMENOrdering Facility: [facility] Address: [address] [place] [address] Performed By: #### 2 4356-8 ####[facility] LABIA [id number] [place] [address] [place] Bilirubin Ql (U) Negative Normal Negative [facility] Comment on above: Order Comment: Speci men Type: URINE SPECIMENOrdering Facility: [facility] Address: [address] [place] [address] Performed By: #### 2 4356-8 ####[facility] LABCLIA [id number] [place] [address] [place] Clarity (Unsp spec) Clear Normal Clear [facility] Comment on above: Order Comment: Speci men Type: URINE SPECIMENOrdering Facility: [facility] Address: [address] [place] [address] Performed By: #### 2 4356-8 ####[facility] LABCLIA [id number] [place] [address] [place] Color (U) Yellow Normal Yellow [facility] Comment on above: Order Comment: Speci men Type: URINE SPECIMENOrdering Facility: [facility] Address: [address] [place] [address] Performed By: #### 2 4356-8 ####[facility] LABCLIA [id number] [place] [address] [place] Epithelial cells LM.HPF (Urine sed) [#/Area] None Seen Normal [facility] Comment on above: Order Comment: Speci men Type: URINE SPECIMENOrdering Facility: [facility] Address: [address] [place] [address] Performed By: #### 2 4356-8 ####[facility] LABCLIA [id number] [place] [address] [place] Glucose Test strip (U) [Mass/Vol] Negative Normal Negative [facility] Comment on above: Order Comment: Speci men Type: URINE SPECIMENOrdering Facility: [facility] Address: [address] [place] [address] Performed By: #### 2 4356-8 ####[facility] LABCLIA [id number] [place] [address] [place] Hemoglobin Ql (U) Negative Normal Negative [facility] Comment on above: Order Comment: Speci men Type: URINE SPECIMENOrdering Facility: [facility] Address: [address] [place] [address] Performed By: #### 2 4356-8 ####[facility] LABCLIA [id number] [place] [address] [place] Hyaline casts (Urine sed) [#/Area] 0 /[LPF] Normal 0 /LPF [facility] Comment on above: Order Comment: Speci men Type: URINE SPECIMENOrdering Facility: [facility] Address: [address] [place] [address] Performed By: #### 2 4356-8 ####[facility] LABCLIA [id number] [place] [address] [place] Ketones Ql (U) Negative Normal Negative [facility] Comment on above: Order Comment: Speci men Type: URINE SPECIMENOrdering Facility: [facility] Address: [address] [place] [address] Performed By: #### 2 4356-8 ####[facility] LABCLIA [id number] [place] [address] [place] Leukocyte esterase Test strip Ql (U) Negative Normal Negative [facility] Comment on above: Order Comment: Speci men Type: URINE SPECIMENOrdering Facility: [facility] Address: [address] [place] [address] Performed By: #### 2 4356-8 ####[facility] LABCLIA [id number] [place] [address] [place] Nitrite Ql (U) Negative Normal Negative [facility] Comment on above: Order Comment: Speci men Type: URINE SPECIMENOrdering Facility: [facility] Address: [address] [place] [address] Performed By: #### 2 4356-8 ####[facility] LABCLIA [id number] [place] [address] [place] pH (U) 7.0 [pH] Normal <8.5 [facility] Comment on above: Order Comment: Speci men Type: URINE SPECIMENOrdering Facility: [facility] Address: [address] [place] [address] Performed By: #### 2 4356-8 ####[facility] [id number] [place] [address] [place] Protein (U) [Mass/Vol] Negative Normal Negative [facility] Comment on above: Order Comment: Speci men Type: URINE SPECIMENOrdering Facility: [facility] Address: [address] [place] [address] Performed By: #### 2 4356-8 ####[facility] [id number] [place] [address] [place] RBC LM.HPF (Urine sed) [#/Area] 0-2 /HPF Normal 0-2 /HPF [facility] Comment on above: Order Comment: Speci men Type: URINE SPECIMENOrdering Facility: [facility] Address: [address] [place] [address] Performed By: #### 2 4356-8 ####[facility] [id number] [place] [address] [place] Specific gravity (U) [Rel density] 1.007 Normal 1.005-1.030 [facility] Comment on above: Order Comment: Speci men Type: URINE SPECIMENOrdering Facility: [facility] Address: [address] [place] [address] Performed By: #### 2 4356-8 ####[facility] [id number] [place] [address] [place] Urobilinogen Ql (U) 0.2 EU/dL Normal 0.2-1.0 EU/dL [facility] Comment on above: Order Comment: Speci men Type: URINE SPECIMENOrdering Facility: [facility] Address: [address] [place] [address] Performed By: #### 2 4356-8 ####[facility] LABCLIA [id number] [place] [address] [place] WBC LM.HPF (Urine sed) [#/Area] 0-5 /HPF Normal 0-5 /HPF [facility] Comment on above: Order Comment: Speci men Type: URINE SPECIMENOrdering Facility: [facility] Address: [address] [place] [address] Performed By: #### 2 4356-8 ####[facility] LABCLIA [id number] [place] [address] [place] XR LUMBAR 3V AP/LAT/L5-S1on 09-07-2023 XR LUMBAR 3V AP/LAT/L5-S1 Normal [facility] CNPNon 09-04-2023 CNPN Normal [facility] CNPNon 08-29-2023 CNPN Normal [facility] CNCOon 08-25-2023 CNCO Letter Text Normal [facility] Basic metabolic 2000 panelon 08-22-2023 Anion gap [Moles/Vol] 9 mmol/L Normal 8-15 [facility] Comment on above: Order Comment: Speci men Type: BLOOD SPECIMENOrdering Facility: [facility] Address: [address] [place] [address] Performed By: #### 2 4321-2 ####[facility] LABIA [id number] [place] [address] [place] Calcium [Mass/Vol] 9.4 mg/dL Normal 8.5-10.2 [facility] Comment on above: Order Comment: Speci men Type: BLOOD SPECIMENOrdering Facility: [facility] Address: [address] [place] [address] Performed By: #### 2 4321-2 ####[facility] LABCLIA [id number] [place] [address] [place] Chloride [Moles/Vol] 103 mmol/L Normal 98-107 [facility] Comment on above: Order Comment: Speci men Type: BLOOD SPECIMENOrdering Facility: [facility] Address: [address] [place] [address] Performed By: #### 2 4321-2 ####[facility] LABCLIA [id number] [place] [address] [place] CO2 [Moles/Vol] 26 mmol/L Normal 22-30 [facility] Comment on above: Order Comment: Speci men Type: BLOOD SPECIMENOrdering Facility: [facility] Address: [address] [place] [address] Performed By: #### 2 4321-2 ####[facility] LABIA [id number] [address] [place] Creatinine [Mass/Vol] 0.77 mg/dL Normal 0.73-1.22 [facility] Comment on above: Order Comment: Speci men Type: BLOOD SPECIMENOrdering Facility: [facility] Address: [address] [place] [address] Performed By: #### 2 4321-2 ####[facility] LABIA [id number] [address] [place] Creatinine and Glomerular filtration rate.predicted panel (S/P/Bld) 99 mL/min/1.73m??? Normal >=60 [facility] Comment on above: Order Comment: Speci men Type: BLOOD SPECIMENOrdering Facility: [facility] Address: [address] [place] [address] Result Comment: Yeisca mated Glomerular Filtration Rate (eGFR) is calculated [...] actual GFR. Performed By: #### 2 4321-2 ####[facility] LABIA [id number] [place] [address] [place] Glucose [Mass/Vol] 112 mg/dL High 74-99 [facility] Comment on above: Order Comment: Speci men Type: BLOOD SPECIMENOrdering Facility: [facility] Address: [address] [place] [address] Result Comment: The [place] [employer] (ADA) provides guidance for cutoff values for fasting glucose and random glucose. The ADA defines fasting as no caloric intake for at least 8 hours. Fasting plasma glucose results between 100 to 125 mg/dL indicate increased risk for diabetes (prediabetes).Fasting plasma glucose results greater than or equal to 126 mg/dL meet the criteria for diagnosis of diabetes. In the absence of unequivocal hyperglycemia, results should be confirmed by repeat testing. In a patient with classic symptoms of hyperglycemia or hyperglycemic crisis, random plasma glucose results greater than or equal to 200 mg/dL meet the criteria for diagnosis of diabetes.Reference: Standards of Medical Care in Diabetes 2016, [place] [employer]. Diabetes Care. 2016.39(Suppl 1). Performed By: #### 2 4321-2 ####[facility] LABCLIA [id number] [place] [address] [place] Potassium [Moles/Vol] 5.1 mmol/L Normal 3.7-5.1 [facility] Comment on above: Order Comment: Speci men Type: BLOOD SPECIMENOrdering Facility: [facility] Address: [address] [place] [address] Performed By: #### 2 4321-2 ####[facility] LABCLIA [id number] [place] [address] [place] Sodium [Moles/Vol] 138 mmol/L Normal 136-144 [facility] Comment on above: Order Comment: Speci men Type: BLOOD SPECIMENOrdering Facility: [facility] Address: [address] [place] [address] Performed By: #### 2 4321-2 ####[facility] LABCLIA [id number] [place] [address] [place] Urea nitrogen [Mass/Vol] 16 mg/dL Normal 9-24 [facility] Comment on above: Order Comment: Speci men Type: BLOOD SPECIMENOrdering Facility: [facility] Address: [address] [place] [address] Performed By: #### 2 4321-2 ####[facility] LABCLIA [id number] [place] [address] [place] CBC panel Auto (Bld)on 08-21 Erythrocyte distribution width (RBC) [Ratio] 13.2 % Normal 11.5-15.0 [facility] Comment on above: Order Comment: Speci men Type: BLOOD SPECIMENOrdering Facility: [facility] Address: [address] [place] [address] Performed By: #### 5 8410-2 ####[facility] LABCLIA [id number] [place] [address] [place] Hematocrit (Bld) [Volume fraction] 34.6 % Low 39.0-51.0 [facility] Comment on above: Order Comment: Speci men Type: BLOOD SPECIMENOrdering Facility: [facility] Address: [address] [place] [address] Performed By: #### 5 8410-2 ####[facility] LABCLIA [id number] [place] [address] [place] Hemoglobin (Bld) [Mass/Vol] 11.6 g/dL Low 13.0-17.0 [facility] Comment on above: Order Comment: Speci men Type: BLOOD SPECIMENOrdering Facility: [facility] Address: [address] [place] [address] Performed By: #### 5 8410-2 ####[facility] LABCLIA [id number] [place] [address] [place] MCH (RBC) [Entitic mass] 31.9 pg Normal 26.0-34.0 [facility] Comment on above: Order Comment: Speci men Type: BLOOD SPECIMENOrdering Facility: [facility] Address: [address] [place] [address] Performed By: #### 5 8410-2 ####[facility] LABCLIA [id number] [place] [address] [place] MCHC (RBC) [Mass/Vol] 33.5 g/dL Normal 30.5-36.0 [facility] Comment on above: Order Comment: Speci men Type: BLOOD SPECIMENOrdering Facility: [facility] Address: [address] [place] [address] Performed By: #### 5 8410-2 ####[facility] LABCLIA [id number] [place] [address] [place] MCV (RBC) [Entitic vol] 95.1 fL Normal 80.0-100.0 [facility] Comment on above: Order Comment: Speci men Type: BLOOD SPECIMENOrdering Facility: [facility] Address: [address] [place] [address] Performed By: #### 5 8410-2 ####[facility] LABIA [id number] [place] [address] [place] Nucleated RBC (Bld) [#/Vol] 10*3/uL Normal <0.01 [facility] Comment on above: Order Comment: Speci men Type: BLOOD SPECIMENOrdering Facility: [facility] Address: [address] [place] [address] Performed By: #### 5 8410-2 ####[facility] LABCLIA [id number] [place] [address] [place] Platelet mean volume (Bld) [Entitic vol] 9.7 fL Normal 9.0-12.7 [facility] Comment on above: Order Comment: Speci men Type: BLOOD SPECIMENOrdering Facility: [facility] Address: [address] [place] [address] Performed By: #### 5 8410-2 ####[facility] LABCLIA [id number] [address] [address] [place] Platelets (Bld) [#/Vol] 393 10*3/uL Normal 150-400 [facility] Comment on above: Order Comment: Speci men Type: BLOOD SPECIMENOrdering Facility: [facility] Address: [address] [place] [address] Performed By: #### 5 8410-2 ####[facility] [id number] [place] [address] [place] RBC (Bld) [#/Vol] 3.64 10*6/uL Low 4.20-6.00 [facility] Comment on above: Order Comment: Speci men Type: BLOOD SPECIMENOrdering Facility: [facility] Address: [address] [place] [address] Performed By: #### 5 8410-2 ####[facility] [id number] [place] [address] [place] WBC (Bld) [#/Vol] 17.35 10*3/uL High 3.70-11.00 [facility] Comment on above: Order Comment: Speci men Type: BLOOD SPECIMENOrdering Facility: [facility] Address: [address] [place] [address] Performed By: #### 5 8410-2 ####[facility] [id number] [place] [address] [place] CNDSon 08-22-2023 CNDS Normal [facility] THERAPY NTon 08-22-2023 THERAPY NT Normal [facility] Basic metabolic 2000 panelon 08-21-2023 Anion gap [Moles/Vol] 10 mmol/L Normal 8-15 [facility] Comment on above: Order Comment: Speci men Type: BLOOD SPECIMENOrdering Facility: [facility] Address: [address] [place] [address] Performed By: #### 2 4321-2 ####[facility] LABCLIA [id number] [address] [address] [place] Calcium [Mass/Vol] 9.5 mg/dL Normal 8.5-10.2 [facility] Comment on above: Order Comment: Speci men Type: BLOOD SPECIMENOrdering Facility: [facility] Address: [address] [place] [address] Performed By: #### 2 4321-2 ####[facility] LABCLIA [id number] [place] [address] [place] Chloride [Moles/Vol] 106 mmol/L Normal 98-107 [facility] Comment on above: Order Comment: Speci men Type: BLOOD SPECIMENOrdering Facility: [facility] Address: [address] [place] [address] Performed By: #### 2 4321-2 ####[facility] LABCLIA [id number] [place] [address] [place] CO2 [Moles/Vol] 22 mmol/L Normal 22-30 [facility] Comment on above: Order Comment: Speci men Type: BLOOD SPECIMENOrdering Facility: [facility] Address: [address] [place] [address] Performed By: #### 2 4321-2 ####[facility] LABCLIA [id number] [place] [address] [place] Creatinine [Mass/Vol] 0.84 mg/dL Normal 0.73-1.22 [facility] Comment on above: Order Comment: Speci men Type: BLOOD SPECIMENOrdering Facility: [facility] Address: [address] [place] [address] Performed By: #### 2 4321-2 ####[facility] LABCLIA [id number] [place] [address] [place] Creatinine and Glomerular filtration rate.predicted panel (S/P/Bld) 96 mL/min/1.73m??? Normal >=60 [facility] Comment on above: Order Comment: Roberto Carlos lion Type: BLOOD SPECIMENOrdering Facility: [facility] Address: [address] [place] [address] Result Comment: Yesica mated Glomerular Filtration Rate [...] actual GFR. Performed By: #### 2 4321-2 ####[facility] [id number] [place] [address] [place] Glucose [Mass/Vol] 140 mg/dL High 74-99 [facility] Comment on above: Order Comment: Roberto Carlos lion Type: BLOOD SPECIMENOrdering Facility: [facility] Address: [address] [place] [address] Result Comment: The [place] [employer] (ADA) provides guidance for cutoff values for fasting glucose and random glucose. The ADA defines fasting as no caloric intake for at least 8 hours. Fasting plasma glucose results between 100 to 125 mg/dL indicate increased risk for diabetes (prediabetes).Fasting plasma glucose results greater than or equal to 126 mg/dL meet the criteria for diagnosis of diabetes. In the absence of unequivocal hyperglycemia, results should be confirmed by repeat testing. In a patient with classic symptoms of hyperglycemia or hyperglycemic crisis, random plasma glucose results greater than or equal to 200 mg/dL meet the criteria for diagnosis of diabetes.Reference: Standards of Medical Care in Diabetes 2016, [place] [employer]. Diabetes Care. 2016.39(Suppl 1). Performed By: #### 2 4321-2 ####[facility] [id number] [place] [address] [place] Potassium [Moles/Vol] 4.4 mmol/L Normal 3.7-5.1 [facility] Comment on above: Order Comment: Roberto Carlos lion Type: BLOOD SPECIMENOrdering Facility: [facility] Address: [address] [place] [address] Performed By: #### 2 4321-2 ####[facility] LABCLIA [id number] [place] [id number] [place] Sodium [Moles/Vol] 138 mmol/L Normal 136-144 [facility] Comment on above: Order Comment: Speci men Type: BLOOD SPECIMENOrdering Facility: [facility] Address: [address] [place] [address] Performed By: #### 2 4321-2 ####[facility] LABCLIA [id number] [place] [address] [place] Urea nitrogen [Mass/Vol] 14 mg/dL Normal 9-24 [facility] Comment on above: Order Comment: Speci men Type: BLOOD SPECIMENOrdering Facility: [facility] Address: [address] [place] [address] Performed By: #### 2 4321-2 ####[facility] LABCLIA [id number] [place] [id number] [place] CASE MANAGEMon 08-21-2023 CASE MANAGEM Normal [facility] CBC panel Auto (Bld)on 08-20 Erythrocyte distribution width (RBC) [Ratio] 13.1 % Normal 11.5-15.0 [facility] Comment on above: Order Comment: Speci men Type: BLOOD SPECIMENOrdering Facility: [facility] Address: [address] [place] [address] Performed By: #### 5 8410-2 ####[facility] LABCLIA [id number] [place] [id number] [place] Hematocrit (Bld) [Volume fraction] 34.2 % Low 39.0-51.0 [facility] Comment on above: Order Comment: Speci men Type: BLOOD SPECIMENOrdering Facility: [facility] Address: [address] [place] [address] Performed By: #### 5 8410-2 ####[facility] LABIA [id number] [place] [address] [place] Hemoglobin (Bld) [Mass/Vol] 11.6 g/dL Low 13.0-17.0 [facility] Comment on above: Order Comment: Speci men Type: BLOOD SPECIMENOrdering Facility: [facility] Address: [address] [place] [address] Performed By: #### 5 8410-2 ####[facility] LABIA [id number] [place] [address] [place] MCH (RBC) [Entitic mass] 31.7 pg Normal 26.0-34.0 [facility] Comment on above: Order Comment: Speci men Type: BLOOD SPECIMENOrdering Facility: [facility] Address: [address] [place] [address] Performed By: #### 5 8410-2 ####[facility] [id number] [place] [address] [place] MCHC (RBC) [Mass/Vol] 33.9 g/dL Normal 30.5-36.0 [facility] Comment on above: Order Comment: Speci men Type: BLOOD SPECIMENOrdering Facility: [facility] Address: [address] [place] [address] Performed By: #### 5 8410-2 ####[facility] LABIA [id number] [place] [address] [place] MCV (RBC) [Entitic vol] 93.4 fL Normal 80.0-100.0 [facility] Comment on above: Order Comment: Speci men Type: BLOOD SPECIMENOrdering Facility: [facility] Address: [address] [place] [address] Performed By: #### 5 8410-2 ####[facility] LABIA [id number] [place] [address] [place] Nucleated RBC (Bld) [#/Vol] 10*3/uL Normal <0.01 [facility] Comment on above: Order Comment: Speci men Type: BLOOD SPECIMENOrdering Facility: [facility] Address: [address] [place] [address] Performed By: #### 5 8410-2 ####[facility] LABCLIA [id number] [place] [address] [place] Platelet mean volume (Bld) [Entitic vol] 9.3 fL Normal 9.0-12.7 [facility] Comment on above: Order Comment: Speci men Type: BLOOD SPECIMENOrdering Facility: [facility] Address: [address] [place] [address] Performed By: #### 5 8410-2 ####[facility] LABCLIA [id number] [place] [address] [place] Platelets (Bld) [#/Vol] 324 10*3/uL Normal 150-400 [facility] Comment on above: Order Comment: Speci men Type: BLOOD SPECIMENOrdering Facility: [facility] Address: [address] [place] [address] Performed By: #### 5 8410-2 ####[facility] LABIA [id number] [place] [address] [place] RBC (Bld) [#/Vol] 3.66 10*6/uL Low 4.20-6.00 [facility] Comment on above: Order Comment: Speci men Type: BLOOD SPECIMENOrdering Facility: [facility] Address: [address] [place] [address] Performed By: #### 5 8410-2 ####[facility] LABCLIA [id number] [place] [address] [place] WBC (Bld) [#/Vol] 13.46 10*3/uL High 3.70-11.00 [facility] Comment on above: Order Comment: Speci men Type: BLOOD SPECIMENOrdering Facility: [facility] Address: [address] [place], [place] [id number] Performed By: #### 5 8410-2 ####[facility] LABCLIA [id number] [place] [address] [place] THERAPY NTon 08-21-2023 THERAPY NT Normal [facility] THERAPY NT Normal [facility] THERAPY NT Normal [facility] XR LUMBAR 2V AP/LATon 2023 XR LUMBAR 2V AP/LAT Normal [facility] Basic metabolic 2000 panelon 08-20-2023 Anion gap [Moles/Vol] 11 mmol/L Normal 8-15 [facility] Comment on above: Order Comment: Speci men Type: BLOOD SPECIMENOrdering Facility: [facility] Address: [address] [place] [address] Performed By: #### 2 4321-2 ####[facility] LABCLIA [id number] [place] [address] [place] Calcium [Mass/Vol] 9.3 mg/dL Normal 8.5-10.2 [facility] Comment on above: Order Comment: Speci men Type: BLOOD SPECIMENOrdering Facility: [facility] Address: [address] [place] [address] Performed By: #### 2 4321-2 ####[facility] LABCLIA [id number] [place] [address] [place] Chloride [Moles/Vol] 105 mmol/L Normal 98-107 [facility] Comment on above: Order Comment: Speci men Type: BLOOD SPECIMENOrdering Facility: [facility] Address: [address] [place] [address] Performed By: #### 2 4321-2 ####[facility] LABCLIA [id number] [place] [address] [place] CO2 [Moles/Vol] 24 mmol/L Normal 22-30 [facility] Comment on above: Order Comment: Speci men Type: BLOOD SPECIMENOrdering Facility: [facility] Address: [address] [place] [address] Performed By: #### 2 4321-2 ####[facility] LABIA [id number] [place] [address] [place] Creatinine [Mass/Vol] 0.86 mg/dL Normal 0.73-1.22 [facility] Comment on above: Order Comment: Speci men Type: BLOOD SPECIMENOrdering Facility: [facility] Address: [address] [place] [address] Performed By: #### 2 4321-2 ####[facility] LABIA [id number] [place] [address] [place] Creatinine and Glomerular filtration rate.predicted panel (S/P/Bld) 95 mL/min/1.73m??? Normal >=60 [facility] Comment on above: Order Comment: Speci men Type: BLOOD SPECIMENOrdering Facility: [facility] Address: [address] [place] [address] Result Comment: Yesica mated Glomerular Filtration Rate [...] actual GFR. Performed By: #### 2 4321-2 ####[facility] LABIA [id number] [place] [address] [place] Glucose [Mass/Vol] 111 mg/dL High 74-99 [facility] Comment on above: Order Comment: Speci men Type: BLOOD SPECIMENOrdering Facility: [facility] Address: [address] [place] [address] Result Comment: The [place] [employer] (ADA) provides guidance for cutoff values for fasting glucose and random glucose. The ADA defines fasting as no caloric intake for at least 8 hours. Fasting plasma glucose results between 100 to 125 mg/dL indicate increased risk for diabetes (prediabetes).Fasting plasma glucose results greater than or equal to 126 mg/dL meet the criteria for diagnosis of diabetes. In the absence of unequivocal hyperglycemia, results should be confirmed by repeat testing. In a patient with classic symptoms of hyperglycemia or hyperglycemic crisis, random plasma glucose results greater than or equal to 200 mg/dL meet the criteria for diagnosis of diabetes.Reference: Standards of Medical Care in Diabetes 2016, [place] [employer]. Diabetes Care. 2016.39(Suppl 1). Performed By: #### 2 4321-2 ####[facility] LABCLIA [id number] [place] [address] [place] Potassium [Moles/Vol] 4.0 mmol/L Normal 3.7-5.1 [facility] Comment on above: Order Comment: Speci men Type: BLOOD SPECIMENOrdering Facility: [facility] Address: [address] [place] [address] Performed By: #### 2 1-2 ####[facility] LABIA [id number] [place] [address] [place] Sodium [Moles/Vol] 140 mmol/L Normal 136-144 [facility] Comment on above: Order Comment: Roberto Carlos lion Type: BLOOD SPECIMENOrdering Facility: [facility] Address: [address] [place] [address] Performed By: #### 2 1-2 ####[facility] LABCLIA [id number] [place] [address] [place] Urea nitrogen [Mass/Vol] 10 mg/dL Normal 9-24 [facility] Comment on above: Order Comment: Smitai men Type: BLOOD SPECIMENOrdering Facility: [facility] Address: [address] [place] [address] Performed By: #### 2 4321-2 ####[facility] LABCLIA [id number] [place] [address] [place] CBC panel Auto (Bld)on 08-19 Erythrocyte distribution width (RBC) [Ratio] 13.2 % Normal 11.5-15.0 [facility] Comment on above: Order Comment: Speci men Type: BLOOD SPECIMENOrdering Facility: [facility] Address: [address] [place] [address] Performed By: #### 5 8410-2 ####[facility] LABCLIA [id number] [place] [address] [place] Hematocrit (Bld) [Volume fraction] 39.0 % Normal 39.0-51.0 [facility] Comment on above: Order Comment: Speci men Type: BLOOD SPECIMENOrdering Facility: [facility] Address: [address] [place] [address] Performed By: #### 5 8410-2 ####[facility] LABCLIA [id number] [address] [place] Hemoglobin (Bld) [Mass/Vol] 12.9 g/dL Low 13.0-17.0 [facility] Comment on above: Order Comment: Speci men Type: BLOOD SPECIMENOrdering Facility: [facility] Address: [address] [place] [address] Performed By: #### 5 8410-2 ####[facility] LABIA [id number] [place] [address] [place] MCH (RBC) [Entitic mass] 32.4 pg Normal 26.0-34.0 [facility] Comment on above: Order Comment: Speci men Type: BLOOD SPECIMENOrdering Facility: [facility] Address: [address] [place] [address] Performed By: #### 5 8410-2 ####[facility] LABCLIA [id number] [place] [address] [place] MCHC (RBC) [Mass/Vol] 33.1 g/dL Normal 30.5-36.0 [facility] Comment on above: Order Comment: Speci men Type: BLOOD SPECIMENOrdering Facility: [facility] Address: [address] [place] [address] Performed By: #### 5 8410-2 ####[facility] LABIA [id number] [place] [address] [place] MCV (RBC) [Entitic vol] 98.0 fL Normal 80.0-100.0 [facility] Comment on above: Order Comment: Speci men Type: BLOOD SPECIMENOrdering Facility: [facility] Address: [address] [place] [address] Performed By: #### 5 8410-2 ####[facility] LABIA [id number] [place] [address] [place] Nucleated RBC (Bld) [#/Vol] 10*3/uL Normal <0.01 [facility] Comment on above: Order Comment: Speci men Type: BLOOD SPECIMENOrdering Facility: [facility] Address: [address] [place] [address] Performed By: #### 5 8410-2 ####[facility] LABIA [id number] [place] [address] [place] Platelet mean volume (Bld) [Entitic vol] 9.7 fL Normal 9.0-12.7 [facility] Comment on above: Order Comment: Speci men Type: BLOOD SPECIMENOrdering Facility: [facility] Address: [address] [place] [address] Performed By: #### 5 8410-2 ####[facility] LABIA [id number] [place] [address] [place] Platelets (Bld) [#/Vol] 389 10*3/uL Normal 150-400 [facility] Comment on above: Order Comment: Speci men Type: BLOOD SPECIMENOrdering Facility: [facility] Address: [address] [place] [address] Performed By: #### 5 8410-2 ####[facility] LABCLIA [id number] [address] [address] [place] RBC (Bld) [#/Vol] 3.98 10*6/uL Low 4.20-6.00 [facility] Comment on above: Order Comment: Speci men Type: BLOOD SPECIMENOrdering Facility: [facility] Address: [address] [place] [address] Performed By: #### 5 8410-2 ####[facility] LABCLIA [id number] [place] [address] [place] WBC (Bld) [#/Vol] 11.15 10*3/uL High 3.70-11.00 [facility] Comment on above: Order Comment: Speci men Type: BLOOD SPECIMENOrdering Facility: [facility] Address: [address] [place] [address] Performed By: #### 5 8410-2 ####[facility] LABCLIA [id number] [place] [address] [place] LUMBAR SPINE WO IVCONon 0 08-20-2023 CT LUMBAR SPINE WO IVCON Normal [facility] MRI LUMBAR SPINE WO IVCONon 08-20-2023 MRI LUMBAR SPINE WO IVCON Normal [facility] THERAPY NTon 08-20-2023 THERAPY NT Normal [facility] THERAPY NT Normal [facility] ANES POSTPROC EVALon 024 ANES POSTPROC EVAL Normal [facility] ANES PRE-OPon 08-19-2023 ANES PRE-OP Normal [facility] BRIEF OP NOTon 08-19-2023 BRIEF OP NOT Normal [facility] NURSING PROGon 08-19-2023 NURSING PROG Normal [facility] NURSING PROG Normal [facility] OPERATIVE NOon 08-19-2023 OPERATIVE NO Normal [facility] XR LUMBAR 2V AP/LATon 2023 XR LUMBAR 2V AP/LAT Normal [facility] XR LUMBAR 2V AP/LAT Normal [facility] XR LUMBAR 2V AP/LAT Normal [facility] CNPNon 08-11-2023 CNPN Normal [facility] Basic metabolic 2000 panelon 08-06-2023 Anion gap [Moles/Vol] 13 mmol/L 9 - 18 mmol/L [facility] Calcium [Mass/Vol] 9.2 mg/dL 8.5 - 10. 2 mg/dL [facility] Chloride [Moles/Vol] 100 mmol/L 97 - 10 5 mmol/L [facility] CO2 [Moles/Vol] 24 mmol/L 22 - 30 mmol/L [facility] Creatinine [Mass/Vol] 1.00 mg/dL 0.73 - 1.22 mg/dL [facility] GFR/1.73 sq M.predicted among non-blacks MDRD (S/P/Bld) [Vol rate/Area] 83 mL/min/{1.73_m2} - PINF [facility] Comment on above: Estimated Glomerular Filtration Rate [...] 100 mg/dL High 74 - 99 mg/dL [facility] Comment on above: The [place] Diabete s Association (ADA) provides guidance for [...] Standards of Medical Care in Diabetes 2016, [place] Diabetes Association. Diabetes Care. 2016.39(Suppl 1). Interpretation and review of laboratory results Abnormal [facility] Potassium [Moles/Vol] 4.1 mmol/L 3.7 - 5.1 mmol/L [facility] Sodium [Moles/Vol] 137 mmol/L 136 - 144 mmol/L [facility] Urea nitrogen [Mass/Vol] 23 mg/dL 9 - 24 mg/dL [facility] Anion gap [Moles/Vol] 13 mmol/L Normal 9-18 [facility] Comment on above: Order Comment: Speci men Type: BLOOD SPECIMEN [facility] Address: [address] [place] [address] Performed By: #### 2 4321-2, 6-4, 24327-3 #### [facility] CLIA [id number] [address] [place] [address] [place] Calcium [Mass/Vol] 9.2 mg/dL Normal 8.5-10.2 [facility] Comment on above: Order Comment: Speci men Type: BLOOD SPECIMEN [facility] Address: [address] [place] [address] Performed By: #### 2 4321-2, 6-4, 73261-4 #### [facility] CLIA [id number] [address] [place] [address] [place] Chloride [Moles/Vol] 100 mmol/L Normal 97-105 [facility] Comment on above: Order Comment: Speci men Type: BLOOD SPECIMEN [facility] Address: [address] [place] [address] Performed By: #### 2 4321-2, 6-4, 38220-2 #### [facility] CLIA [id number] [address] [place] [address] [place] CO2 [Moles/Vol] 24 mmol/L Normal 22-30 [facility] ital Comment on above: Order Comment: Speci men Type: BLOOD SPECIMEN [facility] Address: [address] [place], [place] [address] Performed By: #### 2 4321-2, 6-4, 13016-4 #### [facility] CLIA [id number] [address] [place] [address] [place] Creatinine [Mass/Vol] 1.00 mg/dL Normal 0.73-1.22 [facility] Comment on above: Order Comment: Roberto Carlos lion Type: BLOOD SPECIMEN [facility] Address: [address] [place] [address] Performed By: #### 2 4321-2, 2276-4, 15652-3 #### [facility] CLIA [id number] [address] [place] [address] [place] Creatinine and Glomerular filtration rate.predicted panel (S/P/Bld) 83 mL/min/1.73m??? Normal >=60 [facility] Comment on above: Order Comment: Roberto Carlos lion Type: BLOOD SPECIMEN [facility] Address: [address] [place] [address] Result Comment: Yesica mated Glomerular Filtration Rate [...] GFR. Performed By: #### 2 4321-2, 2276-4, 94400-2 #### [facility] CLIA [id number] [address] [place] [address] [place] Glucose [Mass/Vol] 100 mg/dL High 74-99 [facility] Comment on above: Order Comment: Roberto Carlos lion Type: BLOOD SPECIMEN [facility] Address: [address] [place] [address] Result Comment: The [place] Diabetes Association (ADA) provides guidance for cutoff [...] Standards of Medical Care in Diabetes 2016, [place] Diabetes Association. Diabetes Care. 2016.39(Suppl 1). Performed By: #### 2 4321-2, 6-4, 53277-7 #### [facility] CLIA [id number] [address] [place] [address] [place] Potassium [Moles/Vol] 4.1 mmol/L Normal 3.7-5.1 [facility] Comment on above: Order Comment: Speci men Type: BLOOD SPECIMEN [facility] Address: [address] [place], [place] [address] Performed By: #### 2 4321-2, 6-4, 85195-3 #### [facility] CLIA [id number] [address] [place] [address] [place] Sodium [Moles/Vol] 137 mmol/L Normal 136-144 [facility] Comment on above: Order Comment: Speci men Type: BLOOD SPECIMEN [facility] Address: [address] [place], [place] [address] Performed By: #### 2 4321-2, 6-4, 81193-0 #### [facility] CLIA [id number] [address] [place] [address] [place] Urea nitrogen [Mass/Vol] 23 mg/dL Normal 9-24 [facility] Comment on above: Order Comment: Speci men Type: BLOOD SPECIMEN [facility] Address: [address] [place] [address] Performed By: #### 2 4321-2, 6-4, 46071-3 #### [facility] CLIA [id number] [address] [place] [address] [place] CBC W Auto Differential pane l (Bld)on 08-06-2023 Basophils (Bld) [#/Vol] 0.08 10*3/uL Normal <0.11 [facility] Comment on above: Order Comment: Speci men Type: BLOOD SPECIMEN [facility] Address: [address] [place], [place] [address] Performed By: #### 5 7021-8 #### [facility] CLIA [id number] [address] [place] [address] [place] Basophils/100 WBC (Bld) 0.9 % Normal [facility] Comment on above: Order Comment: Speci men Type: BLOOD SPECIMEN [facility] Address: [address] [place] [address] Performed By: #### 5 7021-8 #### [facility] IA [id number] [address] [place] [address] [place] Differential cell count method Nom (Bld) Auto Normal [facility] Comment on above: Order Comment: Speci men Type: BLOOD SPECIMEN [facility] Address: [address] [place] [address] Performed By: #### 5 7021-8 #### [facility] IA [id number] [address] [place] [address] [place] Eosinophils (Bld) [#/Vol] 0.43 10*3/uL Normal <0.46 [facility] Comment on above: Order Comment: Speci men Type: BLOOD SPECIMEN [facility] Address: [address] [place] [address] Performed By: #### 5 7021-8 #### [facility] IA [id number] [address] [place] [address] [place] Eosinophils/100 WBC (Bld) 4.6 % Normal [facility] Comment on above: Order Comment: Speci men Type: BLOOD SPECIMEN [facility] Address: [address] [place] [address] Performed By: #### 5 7021-8 #### [facility] IA [id number] [address] [place] Erythrocyte distribution width (RBC) [Ratio] 12.7 % Normal 11.5-15.0 [facility] Comment on above: Order Comment: Speci men Type: BLOOD SPECIMEN [facility] Address: [address] [place] [address] Performed By: #### 5 7021-8 #### [facility] IA [id number] [address] [place] [address] [place] Hematocrit (Bld) [Volume fraction] 46.3 % Normal 39.0-51.0 [facility] Comment on above: Order Comment: Speci men Type: BLOOD SPECIMEN [facility] Address: [address] [place] [address] Performed By: #### 5 7021-8 #### [facility] IA [id number] [address] [place] [address] [place] Hemoglobin (Bld) [Mass/Vol] 15.1 g/dL Normal 13.0-17.0 [facility] Comment on above: Order Comment: Speci men Type: BLOOD SPECIMEN [facility] Address: [address] [place] [address] Performed By: #### 5 7021-8 #### [facility] IA [id number] [address] [place] [address] [place] Immature granulocytes (Bld) [#/Vol] 0.21 10*3/uL High <0.10 [facility] Comment on above: Order Comment: Speci men Type: BLOOD SPECIMEN [facility] Address: [address] [place] [address] Performed By: #### 5 7021-8 #### [facility] IA [id number] [address] [place] [address] [place] Immature granulocytes/100 WBC (Bld) 2.3 % Normal [facility] Comment on above: Order Comment: Speci men Type: BLOOD SPECIMEN [facility] Address: [facility] [place] [address] Performed By: #### 5 7021-8 #### [facility] IA [id number] [address] [place] [address] [place] Lymphocytes (Bld) [#/Vol] 1.59 10*3/uL Normal 1.00-4.00 [facility] Comment on above: Order Comment: Speci men Type: BLOOD SPECIMEN [facility] Address: [address] [place] [address] Performed By: #### 5 7021-8 #### [facility] CLIA [id number] [place] Lymphocytes/100 WBC (Bld) 17.2 % Normal [facility] Comment on above: Order Comment: Speci men Type: BLOOD SPECIMEN [facility] Address: [address] [place] [address] Performed By: #### 5 7021-8 #### [facility] IA [id number] [address] [place] [address] [place] MCH (RBC) [Entitic mass] 31.9 pg Normal 26.0-34.0 [facility] Comment on above: Order Comment: Speci men Type: BLOOD SPECIMEN [facility] Address: [address] [place] [address] Performed By: #### 5 7021-8 #### [facility] IA [id number] [address] [place] [address] [place] MCHC (RBC) [Mass/Vol] 32.6 g/dL Normal 30.5-36.0 [facility] Comment on above: Order Comment: Speci men Type: BLOOD SPECIMEN [facility] Address: [address] [place] [address] Performed By: #### 5 7021-8 #### [facility] CLIA [id number] [address] [place] [address] [place] MCV (RBC) [Entitic vol] 97.9 fL Normal 80.0-100.0 [facility] Comment on above: Order Comment: Speci men Type: BLOOD SPECIMEN [facility] Address: [address] [place] [address] Performed By: #### 5 7021-8 #### [facility] CLIA [id number] [address] [place] [address] [place] Monocytes (Bld) [#/Vol] 1.13 10*3/uL High <0.87 [facility] Comment on above: Order Comment: Speci men Type: BLOOD SPECIMEN [facility] Address: [address] [place] [address] Performed By: #### 5 7021-8 #### [facility] CLIA [id number] [address] [place] [address] [place] Monocytes/100 WBC (Bld) 12.2 % Normal [facility] Comment on above: Order Comment: Speci men Type: BLOOD SPECIMEN [facility] Address: [address] [place] [address] Performed By: #### 5 7021-8 #### [facility] CLIA [id number] [address] [place] [address] [place] Neutrophils (Bld) [#/Vol] 5.82 10*3/uL Normal 1.45-7.50 [facility] Comment on above: Order Comment: Speci men Type: BLOOD SPECIMEN [facility] Address: [address] [place] [address] Performed By: #### 5 7021-8 #### [facility] CLIA [id number] [address] [place] [address] [place] Neutrophils/100 WBC (Bld) 62.8 % Normal [facility] Comment on above: Order Comment: Speci men Type: BLOOD SPECIMEN [facility] Address: [address] [place] [address] Performed By: #### 5 7021-8 #### [facility] CLIA [id number] [address] [place] [address] [place] Nucleated RBC (Bld) [#/Vol] 10*3/uL Normal <0.01 [facility] Comment on above: Order Comment: Speci men Type: BLOOD SPECIMEN [facility] Address: [address] [place] [address] Performed By: #### 5 7021-8 #### [facility] IA [id number] [address] [place] [address] [place] Nucleated RBC/100 WBC (Bld) [Ratio] 0.0 /100 WBC Normal [facility] Comment on above: Order Comment: Speci men Type: BLOOD SPECIMEN [facility] Address: [address] [place] [address] Performed By: #### 5 7021-8 #### [facility] IA [id number] [address] [place] [address] [place] Platelet mean volume (Bld) [Entitic vol] 9.6 fL Normal 9.0-12.7 [facility] Comment on above: Order Comment: Speci men Type: BLOOD SPECIMEN [facility] Address: [address] [place] [address] Performed By: #### 5 7021-8 #### [facility] IA [id number] [address] [place] [address] [place] Platelets (Bld) [#/Vol] 270 10*3/uL Normal 150-400 [facility] Comment on above: Order Comment: Speci men Type: BLOOD SPECIMEN [facility] Address: [address] [place] [address] Performed By: #### 5 7021-8 #### [facility] IA [id number] [address] [place] [address] [place] RBC (Bld) [#/Vol] 4.73 10*6/uL Normal 4.20-6.00 [facility] Comment on above: Order Comment: Speci men Type: BLOOD SPECIMEN [facility] Address: [address] [place] [address] Performed By: #### 5 7021-8 #### [facility] IA [id number] [address] [place] [address] [place] WBC (Bld) [#/Vol] 9.26 10*3/uL Normal 3.70-11.00 [facility] Comment on above: Order Comment: Speci men Type: BLOOD SPECIMEN [facility] Address: [address] [place] [address] Performed By: #### 5 7021-8 #### [facility] CLIA [id number] [address] [place] [address] [facility] BLOOD TYPEon 024 ABO O Normal [facility] Comment on above: Order Comment: Speci men Type: BLOOD SPECIMEN [facility] Address: [address] [place] [address] Performed By: #### C ONABO #### [facility] CLIA [id number] [address] Rh Nom (Bld) Negative Normal [facility] Comment on above: Order Comment: Speci men Type: BLOOD SPECIMEN [facility] Address: [address] [place] [address] Performed By: #### C ONABO #### [facility] CLIA [id number] OF [facility] Performed By: #### T SCR30 #### [facility] CLIA [id number] [address] [place] [id number] [place] ECG COMPLETEon 08-06-2023 ECG COMPLETE Ventricular Rate : 5 5 BPM Atrial Rate : 55 BPM P-R Interval : 132 ms QRS Duration : 96 ms Q-T Interval : 420 ms QTC Calculation(Bazett) : 401 ms Calculated P [place] : 57 degrees Calculated R [place] : 63 degrees Calculated T [place] : 73 degrees Sinus bradycardia Possible Left atrial enlargement Borderline ECG Confirmed by LEX ACUNA DO ([id number]) on 08/18/2023 10:08:16 AM NAME : BRADEN RODRIGUEZ PID : [id number] : 1955 Gender : Male Race : ORD : [id number] Procedure Date : Aug 06 2023 08:48:24 [...] KATHERINE KEITH Acquired by : dm, Normal [facility] Ferritin SerPl-mCncon 2023 Ferritin [Mass/Vol] 322.8 ng/mL Normal 30.3-565.7 [facility] Comment on above: Order Comment: Speci men Type: BLOOD SPECIMEN [facility] Address: [address] [place] [address] Performed By: #### 2 4321-2, 2276-4, 02845-9 #### [facility] CLIA [id number] [address] [place] [address] [place] HISTORY PHYSICALon HISTORY PHYSICAL HNO ID: [id number] Author: SANAM GILL PA-C Service: ? Author Type: Physician Store Lead Type: H&P Filed: 08/06/2023 12:03 Note Text: [...] over the last year. Relieving factors include [place] and steroids. Aggravating factors include repetitive movement. [...] [facility] Iron and Iron binding capaci [facility] 08-06-2023 Iron [Mass/Vol] 99 ug/dL Normal 41-186 [facility] Comment on above: Order Comment: Speci men Type: BLOOD SPECIMEN [facility] Address: [address] [place] [address] Performed By: #### 2 4321-2, 2276-4, 69893-9 #### [facility] CLIA [id number] [address] [facility] [place] [address] [place] Iron binding capacity [Mass/Vol] 252 ug/dL Normal 232-386 [facility] Comment on above: Order Comment: Speci men Type: BLOOD SPECIMEN [facility] Address: [address] [place] [address] Performed By: #### 2 4321-2, 2276-4, 21840-2 #### [facility] CLIA [id number] [address] [place] [address]. [place], [place] [address] [place] [address] [place] Iron/TIBC [Molar ratio] 39.3 % Normal 15.0-57.0 [facility] Comment on above: Order Comment: Speci men Type: BLOOD SPECIMEN [facility] Address: [address] [place] [address] Performed By: #### 2 4321-2, 2276-4, 59621-6 #### [facility] CLIA [id number] [address] [place] [address]. [address] [place] Laboratory - Blood bankon ABO group Nom (d) O [facility] No Panel Informationon 08-05 [facility] STAPHYLOCOCCUS AUREUS AND MR SA SCREEN, PCR, NASALon 08-06-2023 S. aureus and MRSA panel BARBARA+probe (Nose) Not detected Normal Not Detected [facility] Comment on above: Order Comment: Speci men Type: SWAB [facility] Address: [address] [place] [address] Performed By: #### S APCR #### [facility] CLIA [id number] [address] [place], [place] [address] [id number] [place] [address] [place] TYPE AND SCREEN,30 DAYon Blood group antibody screen Ql Negative [facility] ABO O Normal [facility] Comment on above: Order Comment: Speci men Type: BLOOD SPECIMEN [facility] Address: [address] [place] [address] Performed By: #### T SCR30 #### [facility] CLIA [id number] [address] [place] [address] [place] HIstorical Ab Scr Status Negative Normal [facility] Comment on above: Order Comment: Speci men Type: BLOOD SPECIMEN [facility] Address: [address] [place] [address] Performed By: #### T SCR30 #### [facility] CLIA [id number] [address] [place] [address] [place] CNPNon 08-01-2023 CNPN Normal [facility] CT LUMBAR SPINE WO IVCONon 0 05-04-2023 CT LUMBAR SPINE WO IVCON * * *Final Report* * * DATE OF EXAM: May 04 2023 8:14AM [facility] 0508 - CT LUMBAR SPINE WO IVCON [...] caudal rib-bearing vertebra is counted as T12. Building Associate (topogram) images: No significant additional findings Alignment: [...] crest and there are 5 lumbar-type vertebrae. 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 IFF Normal [facility] Creatinine (Bld) [Mass/Vol]O rdered By: Shae Guillory on 10-28-2022 Creatinine [Mass/Vol] 1.0 mg/dL 0.6-1.3 [facility] Comment on above: ER/ESD physician is notified/shown all ISTAT results.Critical values may be confirmed by laboratory testing ifdeemed necessary by ER attending doctor. CT ABDOMEN W CONon CT ABDOMEN W CON EXAMINATION: CT ABDO MEN W CON HISTORY: Epigastric pain , ventral [...] by: WILTON NICHOLE Date: 2022-04-12 08:12 Normal [facility] CREATININEon 04-11-2022 Creatinine [Mass/Vol] 0.80 mg/dL Normal 0.70-1.30 [facility] Comment on above: Performed By: #### P SAS, VITAD #### [facility] [address] [place] [address] Dr. Max Peck EGFR-AF LUXEMBOURGER >60 Normal >=60 [facility] Comment on above: Performed By: #### P SASC, VITAD #### [facility] [address] [address] [address] Max Peck EGFR-NON AF LUXEMBOURGER >60 Normal >=60 [facility] Comment on above: Performed By: #### P SASC, VITAD #### [facility] [address] [place] [address] Dr. Max Peck XR ABD FLAT UP_PA Kuldip 03-16 XR ABD FLAT UP_PA CH ACUTE ABDOMINAL SER IES WITH CHEST X-RAY HISTORY: Abdominal pain. Comparison: [...] by: EDENILSON KNIGHT Date: 2022-03-16 10:42 Normal [facility] LIPID PROFILEon 03-06-2022 CHOL-HDL RATIO NORM SEE BELOW Normal [facility] Comment on above: Result Comment: 3.3 - 4.4 LOW RISK 4.4 - 7.1 AVERAGE RISK 7.1 - 11.0 MODERATE RISK >11.0 HIGH RISK Performed By: #### P SASC, VITAD #### [facility] [address] [place] [address] Dr. Max Peck Cholesterol [Mass/Vol] 163 mg/dL Normal <=200 [facility] Comment on above: Performed By: #### P SASC, VITAD #### [facility] [address] [place] [address] Dr. Max Peck Cholesterol in HDL [Mass/Vol] 50 mg/dL Normal 40-60 [facility] Comment on above: Performed By: #### P SASC, VITAD #### [facility] [address] [place] [address] Dr. Max Peck Cholesterol in LDL [Mass/Vol] 100.0 mg/dL Normal [facility] Comment on above: Performed By: #### P SASC, VITAD #### [facility] [address] [address] [address] Max Peck Cholesterol.total/Cho lesterol in HDL [Mass ratio] 3.3 {ratio} Normal [facility] Comment on above: Performed By: #### P SASC, VITAD #### [facility] [address] [address] [address] Max Peck HDL NORMAL > or = 60 mg/dl - LO W CARDIOVASCULAR RISK <40 mg/dl - HIGH CARDIOVASCULAR RISK Normal [facility] Comment on above: Performed By: #### P SASC, VITAD #### [facility] [address] [place] [address] Dr. Max Peck LDL CALC NORMAL SEE BELOW Normal [facility] Comment on above: Result Comment: <100 mg/dl OPTIMAL 100 - 129 mg/dl NEAR OR ABOVE OPTIMAL 130 - 159 mg/dl BORDERLINE HIGH 160 - 189 mg/dl HIGH >190 mg/dl VERY HIGH Performed By: #### P SASC, VITAD #### [facility] [address] [place] [address] Dr. Max Peck Triglyceride [Mass/Vol] 65 mg/dL Normal <=150 [facility] Comment on above: Performed By: #### P SASC, VITAD #### [facility] [address] [place] [address] Dr. Max Peck VLDL CALC 13.0 mg/dL Normal [facility] Comment on above: Performed By: #### P SASC, VITAD #### [facility] [address] [place] [address] Dr. Max Peck PROF 14(COMP METB)on 022 Albumin [Mass/Vol] 3.9 g/dL Normal 3.4-5.0 [facility] Comment on above: Performed By: #### P SASC, VITAD #### [facility] [address] [place] [address] Dr. Max Peck Albumin/Globulin [Mass ratio] 1.3 {ratio} Normal [facility] Comment on above: Performed By: #### P SASC, VITAD #### [facility] [address] [address] [address] Max Peck ALP [Catalytic activity/Vol] 79 U/L Normal 46-116 [facility] Comment on above: Performed By: #### P SASC, VITAD #### [facility] [address] [address] [address] Max Peck ALT [Catalytic activity/Vol] 24 U/L Normal 16-63 [facility] Comment on above: Performed By: #### P SASC, VITAD #### [facility] [address] [address] [address] Max Peck Anion gap [Moles/Vol] 12.3 mmol/L Normal [facility] Comment on above: Performed By: #### P SASC, VITAD #### [facility] [address] [place] [address] Dr. Max Peck AST [Catalytic activity/Vol] 25 U/L Normal 15-37 [facility] Comment on above: Performed By: #### P SASC, VITAD #### [facility] [address] [address] [address] Max Peck Bilirubin [Mass/Vol] 1.4 mg/dL Critically high 0.2-1.0 [facility] Comment on above: Performed By: #### P SASC, VITAD #### [facility] [address] [address] [address] Max Peck Calcium [Mass/Vol] 9.1 mg/dL Normal 8.5-10.1 [facility] Comment on above: Performed By: #### P SASC, VITAD #### [facility] [address] [address] [address] Max Peck Chloride [Moles/Vol] 100 mmol/L Normal 98-107 [facility] Comment on above: Performed By: #### P SASC, VITAD #### [facility] [address] [address] [address] Max Peck CO2 [Moles/Vol] 30.7 mmol/L Normal 21.0-32.0 [facility] Comment on above: Performed By: #### P SASC, VITAD #### [facility] [address] [place] [address] Dr. Max Peck Creatinine [Mass/Vol] 0.86 mg/dL Normal 0.70-1.30 [facility] Comment on above: Performed By: #### P SASC, VITAD #### [facility] [address] [place] [address] Dr. Max Peck EGFR-AF LUXEMBOURGER 60 mL/min/1.73m2 Normal >=60 [facility] Comment on above: Performed By: #### P SASC, VITAD #### [facility] [address] [place] [address] Dr. Max Peck EGFR-NON AF LUXEMBOURGER 60 mL/min/1.73m2 Normal >=60 [facility] Comment on above: Performed By: #### P SASC, VITAD #### [facility] [address] [place] [address] Dr. Max Peck Globulin (S) [Mass/Vol] 3.1 g/dL Normal [facility] Comment on above: Performed By: #### P SASC, VITAD #### [facility] [address] [place] [address] Dr. Max Peck Glucose [Mass/Vol] 102 mg/dL Normal 74-106 [facility] Comment on above: Performed By: #### P SASC, VITAD #### [facility] [address] [place] [address] Dr. Max Peck Potassium [Moles/Vol] 4.0 mmol/L Normal 3.5-5.1 [facility] Comment on above: Performed By: #### P SASC, VITAD #### [facility] [address] [place] [address] Dr. Max Peck Protein [Mass/Vol] 7.0 g/dL Normal 6.4-8.2 [facility] Comment on above: Performed By: #### P SASC, VITAD #### [facility] [address] [place] [address] Dr. Max Peck Sodium [Moles/Vol] 139 mmol/L Normal 136-145 [facility] Comment on above: Performed By: #### P HUGO, VITAD #### [facility] [address] [address] [address] Max Peck Urea nitrogen [Mass/Vol] 10.0 mg/dL Normal 7.0-18.0 [facility] Comment on above: Performed By: #### P BILLYC, VITAD #### [facility] [address] [place] [address] Dr. Max Peck Urea nitrogen/Creatinine [Mass ratio] 11.6 mg/mg Normal [facility] Comment on above: Performed By: #### P HUGO, VITAD #### [facility] [address] [place] [address] Dr. Max Peck XR CSPINE MIN 4 VIEWSon 01-08 XR CSPINE MIN 4 VIEWS EXAMINATION: XR CS PINE MIN 4 VIEWS HISTORY: Cervical radiculopathy ; [...] WILTON NICHOLE Date: 2022-01-19 07:14 Normal [facility] HEPATITIS PANEL, ACUTEon HBsAg Screen Negative Normal Negative [facility] Comment on above: Performed By: #### P HUGO, VITAD #### [facility] [address] [place] [address] Dr. Max Peck HCV AB <0.1 Normal 0.0-0.9 [facility] Comment on above: Performed By: #### P BILLYC, VITAD #### [facility] [address] [address] [address] Max Peck Hep A Ab, IgM Negative Normal Negative [facility] Comment on above: Performed By: #### P SASC, VITAD #### [facility] [address] [address] [address] Max Peck Hep B Core Ab, IgM Negative Normal Negative [facility] Comment on above: Performed By: #### P SASC, VITAD #### [facility] [id number] Max Peck Interpretation: Comment Normal [facility] Comment on above: Result Comment: Nega tive Not infected with HCV, unless recent infection is suspected or other evidence exists to indicate HCV infection. Performed By: #### P SASC, VITAD #### [facility] [address] [place] [address] Dr. Max Peck INSULINon 12-29-2021 Insulin 15.1 uIU/mL Normal 2.6-24.9 [facility] Comment on above: Performed By: #### P SASC, VITAD #### [facility] [address] [address] [address] Max Peck TESTOSTERONE, TOTALon 2021 Testosterone [Mass/Vol] 766 ng/dL Normal 264-916 [facility] Comment on above: Result Comment: Adul t male reference interval is based on a population of healthy nonobese males (BMI <30) between 19 and 39 years old. Teddy et.al. JCEM 2017,102;3105-5939. PMID: [id number]. Performed By: #### P SASC, VITAD #### [facility] [address] [address] [address] Max Peck CBC AUTO DIFFon 12-28-2021 BASO # 0.0 103/ul Normal 0.0-0.1 [facility] Comment on above: Performed By: #### P SASC, VITAD #### [facility] [address] [address] [address] Max Peck Basophils/100 WBC (Bld) 0.4 % Normal 0.2-2.0 [facility] Comment on above: Performed By: #### P SASC, VITAD #### [facility] [address] [place] [address] Dr. Max Peck EO # 0.0 103/ul Normal 0.0-0.7 [facility] Comment on above: Performed By: #### P SASC, VITAD #### [facility] [address] [place] [address] Dr. Max Peck Eosinophils/100 WBC (Bld) 0.3 % Critically low 0.9-7.0 [facility] Comment on above: Performed By: #### P SASC, VITAD #### [facility] [address] [place] [address] Dr. Max Peck Erythrocyte distribution width (RBC) [Ratio] 12.5 % Normal 11.0-15.0 [facility] Comment on above: Performed By: #### P SASC, VITAD #### [facility] [address] [place] [address] Dr. Max Peck Hematocrit (Bld) [Volume fraction] 41.5 % Critically low 42.0-54.0 [facility] Comment on above: Performed By: #### P SASC, VITAD #### [facility] [address] [place] [address] Dr. Max Peck Hemoglobin (Bld) [Mass/Vol] 14.0 g/dL Normal 14.0-18.0 [facility] Comment on above: Performed By: #### P SASC, VITAD #### [facility] [address] [place] [address] Dr. Max Peck IG # 0.09 10e3/ul Critically high 0.00-0.03 [facility] Comment on above: Performed By: #### P SASC, VITAD #### [facility] [address] [place] [address] Dr. Max Peck IG % 0.9 % Critically high 0.0-0.5 [facility] Comment on above: Performed By: #### P SASC, VITAD #### [facility] [address] [place] [address] Dr. Max Peck LYMPH # 2.6 103/ul Normal 1.2-3.8 [facility] Comment on above: Performed By: #### P SASC, VITAD #### [facility] [address] [place] [address] Dr. Max Peck Lymphocytes/100 WBC (Bld) 25.0 % Normal 20.5-60.0 [facility] Comment on above: Performed By: #### P SASC, VITAD #### [facility] [address] [place] [address] Dr. Max Peck MANUAL DIFF REQ NO Normal [facility] Comment on above: Performed By: #### P SASC, VITAD #### [facility] [address] [place] [address] Dr. Max Peck MCH (RBC) [Entitic mass] 32.6 pg Normal 25.9-34.0 [facility] Comment on above: Performed By: #### P SASC, VITAD #### [facility] [address] [place] [address] Dr. Max Peck MCHC (RBC) [Mass/Vol] 33.7 g/dL Normal 29.9-35.2 [facility] Comment on above: Performed By: #### P SASC, VITAD #### [facility] [address] [place] [address] Dr. Max Peck MCV (RBC) [Entitic vol] 96.7 fL Critically high 80.0-94.0 [facility] Comment on above: Performed By: #### P SASC, VITAD #### [facility] [address] [place] [address] Dr. Max Peck MONO # 1.2 103/ul Critically high 0.3-0.8 [facility] Comment on above: Performed By: #### P SASC, VITAD #### [facility] [address] [place] [address] Dr. Max Peck Monocytes/100 WBC (Bld) 11.1 % Normal 1.7-12.0 [facility] Comment on above: Performed By: #### P SASC, VITAD #### [facility] [address] [place] [address] Dr. Max Peck NEUT # 6.4 103/ul Normal 1.4-6.5 [facility] Comment on above: Performed By: #### P SASC, VITAD #### [facility] [address] [place] [address] Dr. Max Peck Neutrophils/100 WBC (Bld) 62.3 % Normal 43.0-75.0 [facility] Comment on above: Performed By: #### P SASC, VITAD #### [facility] [address] [place] [address] Dr. Max Peck Platelet mean volume (Bld) [Entitic vol] 9.6 fL Normal 9.5-13.5 [facility] Comment on above: Performed By: #### P SASC, VITAD #### [facility] [address] [place] [address] Dr. Max Peck PLT 323 103/ul Normal 150-450 [facility] Comment on above: Performed By: #### P SASC, VITAD #### [facility] [address] [place] [address] Dr. Max Peck RBC 4.29 106/ul Critically low 4.70-6.10 [facility] Comment on above: Performed By: #### P SASC, VITAD #### [facility] [address] [place] [address] Dr. Max Peck WBC 10.3 103/ul Normal 4.0-11.0 [facility] Comment on above: Performed By: #### P SASC, VITAD #### [facility] [address] [place] [address] Dr. Max Peck FREE THYROXINE INDEX T7on FTI 2.41 Normal 1.30-4.50 [facility] Comment on above: Performed By: #### T SH, URIC, T7, LIPID, CMP #### [facility] [address] [place] [address] Dr. Max Peck T3U 36.0 % Normal 33.0-40.0 [facility] Comment on above: Performed By: #### T SH, URIC, T7, LIPID, CMP #### [facility] [address] [address] [address] Mxa Peck T4 [Mass/Vol] 6.70 ug/dL Normal 4.50-12.10 [facility] Comment on above: Performed By: #### T SH, URIC, T7, LIPID, CMP #### [facility] [address] [address] [address] Max Peck GLYCOHEMOGLOBIN A1Con 2021 ADA RECOMMENDATION SEE BELOW Normal [facility] Comment on above: Result Comment: ADA RECOMMENDED LIMIT 4.0 - 6.0 ADA THERAPEUTIC TARGET < 7.0 ACTION SUGGESTED > 7.0 Performed By: #### P SASC, VITAD #### [facility] [address] [address] [address] Max Peck Glucose [Mass/Vol] 97 mg/dL Normal [facility] Comment on above: Performed By: #### P SASC, VITAD #### [facility] [address] [address] [address] Max Peck HbA1c (Bld) [Mass fraction] 5.0 % Normal 4.5-6.2 [facility] Comment on above: Performed By: #### P SASC, VITAD #### [facility] [address] [address] [address] Max Peck LIPID PROFILEon 12-28-2021 CHOL-HDL RATIO NORM SEE BELOW Normal [facility] Comment on above: Result Comment: 3.3 - 4.4 LOW RISK 4.4 - 7.1 AVERAGE RISK 7.1 - 11.0 MODERATE RISK >11.0 HIGH RISK Performed By: #### T SH, URIC, T7, LIPID, CMP #### [facility] [address] [place] [address] Dr. Max Peck Cholesterol [Mass/Vol] 221 mg/dL Critically high <=200 [facility] Comment on above: Performed By: #### T SH, URIC, T7, LIPID, CMP #### [facility] [address] [address] [address] Max Peck Cholesterol in HDL [Mass/Vol] 41 mg/dL Normal 40-60 [facility] Comment on above: Performed By: #### T SH, URIC, T7, LIPID, CMP #### [facility] [address] [address] [address] Max Peck Cholesterol in LDL [Mass/Vol] 157.2 mg/dL Normal [facility] Comment on above: Performed By: #### T SH, URIC, T7, LIPID, CMP #### [facility] [address] [address] [address] Max Peck Cholesterol.total/Cho lesterol in HDL [Mass ratio] 5.4 {ratio} Normal [facility] Comment on above: Performed By: #### T SH, URIC, T7, LIPID, CMP #### [facility] [address] [address] [address] Max Peck HDL NORMAL > or = 60 mg/dl - LO W CARDIOVASCULAR RISK <40 mg/dl - HIGH CARDIOVASCULAR RISK Normal [facility] Comment on above: Performed By: #### T SH, URIC, T7, LIPID, CMP #### [facility] [address] [address] [address] Max Peck LDL CALC NORMAL SEE BELOW Normal [facility] Comment on above: Result Comment: <100 mg/dl OPTIMAL 100 - 129 mg/dl NEAR OR ABOVE OPTIMAL 130 - 159 mg/dl BORDERLINE HIGH 160 - 189 mg/dl HIGH >190 mg/dl VERY HIGH Performed By: #### T SH, URIC, T7, LIPID, CMP #### [facility] [address] [address] [address] Max Peck Triglyceride [Mass/Vol] 114 mg/dL Normal <=150 [facility] Comment on above: Performed By: #### T SH, URIC, T7, LIPID, CMP #### [facility] [address] [address] [address] Max Peck VLDL CALC 22.8 mg/dL Normal [facility] Comment on above: Performed By: #### T SH, URIC, T7, LIPID, CMP #### [facility] [address] [place] [address] Dr. Max Peck PROF 14(COMP METB)on 022 Albumin [Mass/Vol] 3.9 g/dL Normal 3.4-5.0 [facility] Comment on above: Performed By: #### T SH, URIC, T7, LIPID, CMP #### [facility] [address] [place] [address] Dr. Max Peck Albumin/Globulin [Mass ratio] 1.3 {ratio} Normal [facility] Comment on above: Performed By: #### T SH, URIC, T7, LIPID, CMP #### [facility] [address] [place] [address] Dr. Max Peck ALP [Catalytic activity/Vol] 63 U/L Normal 46-116 [facility] Comment on above: Performed By: #### T SH, URIC, T7, LIPID, CMP #### [facility] [address] [place] [address] Dr. Max Peck ALT [Catalytic activity/Vol] 75 U/L Critically high 16-63 [facility] Comment on above: Performed By: #### T SH, URIC, T7, LIPID, CMP #### [facility] [address] [place] [address] Dr. Max Peck Anion gap [Moles/Vol] 8.8 mmol/L Normal [facility] Comment on above: Performed By: #### T SH, URIC, T7, LIPID, CMP #### [facility] [address] [place] [address] Dr. Max Peck AST [Catalytic activity/Vol] 41 U/L Critically high 15-37 [facility] Comment on above: Performed By: #### T SH, URIC, T7, LIPID, CMP #### [facility] [address] [place] [address] Dr. Max Peck Bilirubin [Mass/Vol] 0.8 mg/dL Normal 0.2-1.0 [facility] Comment on above: Performed By: #### T SH, URIC, T7, LIPID, CMP #### [facility] [address] [address] [address] Max Peck Calcium [Mass/Vol] 9.1 mg/dL Normal 8.5-10.1 [facility] Comment on above: Performed By: #### T SH, URIC, T7, LIPID, CMP #### [facility] [address] [address] [address] Max Peck Chloride [Moles/Vol] 102 mmol/L Normal 98-107 [facility] Comment on above: Performed By: #### T SH, URIC, T7, LIPID, CMP #### [facility] [address] [address] [address] Max Peck CO2 [Moles/Vol] 33.8 mmol/L Critically high 21.0-32.0 [facility] Comment on above: Performed By: #### T SH, URIC, T7, LIPID, CMP #### [facility] [address] [place] [address] Dr. Max Peck Creatinine [Mass/Vol] 0.80 mg/dL Normal 0.70-1.30 [facility] Comment on above: Performed By: #### T SH, URIC, T7, LIPID, CMP #### [facility] [address] [address] [address] Max Peck EGFR-AF LUXEMBOURGER >60 Normal >=60 [facility] Comment on above: Performed By: #### T SH, URIC, T7, LIPID, CMP #### [facility] [address] [place] [address] Dr. Max Peck EGFR-NON AF LUXEMBOURGER >60 Normal >=60 [facility] Comment on above: Performed By: #### T SH, URIC, T7, LIPID, CMP #### [facility] [address] [address] [address] Max Peck Globulin (S) [Mass/Vol] 2.9 g/dL Normal [facility] Comment on above: Performed By: #### T SH, URIC, T7, LIPID, CMP #### [facility] [address] [address] [address] Max Peck Glucose [Mass/Vol] 99 mg/dL Normal 74-106 [facility] Comment on above: Performed By: #### T SH, URIC, T7, LIPID, CMP #### [facility] [address] [place] [address] Dr. Max Peck Potassium [Moles/Vol] 3.6 mmol/L Normal 3.5-5.1 [facility] Comment on above: Performed By: #### T SH, URIC, T7, LIPID, CMP #### [facility] [address] [place] [address] Dr. Max Peck Protein [Mass/Vol] 6.8 g/dL Normal 6.4-8.2 [facility] Comment on above: Performed By: #### T SH, URIC, T7, LIPID, CMP #### [facility] [address] [place] [address] Dr. Max Peck Sodium [Moles/Vol] 141 mmol/L Normal 136-145 [facility] Comment on above: Performed By: #### T SH, URIC, T7, LIPID, CMP #### [facility] [address] [place] [address] Dr. Max Peck Urea nitrogen [Mass/Vol] 16.0 mg/dL Normal 7.0-18.0 [facility] Comment on above: Performed By: #### T SH, URIC, T7, LIPID, CMP #### [facility] [address] [place] [address] Dr. Max Peck Urea nitrogen/Creatinine [Mass ratio] 20.0 mg/mg Normal [facility] Comment on above: Performed By: #### T SH, URIC, T7, LIPID, CMP #### [facility] [address] [place] [address] Dr. Max Peck TSHon 12-28-2021 TSH 1.544 uIU/mL Normal 0.358-3.740 [facility] Comment on above: Performed By: #### T SH, URIC, T7, LIPID, CMP #### [facility] [address] [place] [address] Dr. Max Peck URIC ACID SERUMon 12-28-2021 Urate [Mass/Vol] 5.4 mg/dL Normal 3.5-7.2 [facility] Comment on above: Performed By: #### T SH, URIC, T7, LIPID, CMP #### [facility] [address] [address] [address] Max Peck VITAMIN D 25 OHon 12-28-2021 VIT D 25-OH 51.2 ng/mL Normal [facility] Comment on above: Performed By: #### P SASC, VITAD #### [facility] [address] [address] [address] Max Peck VIT D RANGES SEE BELOW Normal [facility] Comment on above: Result Comment: <20 ng/mL Vit D deficient 20 - <30 ng/mL Vit D insufficient 30 - 100 ng/mL Vit D sufficient >100 ng/mL Potential Toxicity Performed By: #### P SASC, VITAD #### [facility] [address] [address] [address] Max Peck Cardiovascular Lab Reporton 09-01-2020 Cardiovascular Lab Report [facility] Patient Name: Braden Rodriguez [facility] MR #: [id number] Physician: Domenic Kohler MD Department of Service Date: 07/31/2020 Medicine Birthdate: 1955 Division of Room #: CC Cardiology Adult Cardiovascular Services [address] [place] [address] Cardiovascular Laboratory Report The patient is a [...] Kohler MD Date Trans: 09/01/2020 10:51 A/sergio [id number]_[id number] cc: Ester Cain M.D. [address], [facility] [place] [address] [place] [facility] LUMBAR SPINE 2 OR 3 VIEWSon 05-19-2019 LUMBAR SPINE 2 OR 3 VIEWS STUDY: LUMBAR SPINE 2 OR 3 VIEWS; 05/19/2019 9:49 am INDICATION: PAIN. COMPARISON: None. ACCESSION NUMBER(S): [id number] ORDERING CLINICIAN: Edgar Fairchild FINDINGS: No fracture or subluxation of the lumbar spine. L3-L5 laminectomy defects. Moderate to severe multilevel degenerative disc height loss with endplate sclerosis and osteophyte formation. Multilevel facet arthropathy. Moderate dextroscoliosis centered at L2. IMPRESSION: Severe degenerative changes of the lumbar spine. L3-L5 laminectomy defects. Normal [facility] Vital Signs Date Time Vital Sign Value Performing Clinician Facility 06-16-2024 09:53-0400 Body temperature 98.29 [degF] Nurse S70 [facility] 06-16-2024 09:53-0400 Diastolic blood pressure 79 mm[Hg] Nurse S70 Malik casper [facility] 06-16-2024 09:53-0400 Heart rate 59 /min Nurse S70 [facility] 06-16-2024 09:53-0400 SaO2% (BldA) [Mass fraction] 97 % Nurse S70 [facility] 06-16-2024 09:53-0400 Systolic blood pressure 141 mm[Hg] Nurse S70 Jah hernandez [facility] 06-06-2024 20:51-0400 SaO2% (BldA) [Mass fraction] 96 % ESTER CAIN [facility] Comment on above: Order Comment: Specimen Type: ARTERIAL B LOOD SPECIMENOrdering Facility: [facility] Address: [address] [place] [id number] Performed By: #### A LL ####[facility] LABCLIA [id number] [address] [address] [place] 05-12-2024 11:13-0500 Body height 182.9 cm Katherine Keith MD Work Phone: [facility] 05-12-2024 11:13-0500 Body mass index (BMI) [Ratio] 27.8 kg/m2 Katherine Keith MD Work Phone: [facility] 05-12-2024 11:13-0500 Body weight 92.99 kg Katherine Keith MD Work Phone: [facility] 05-12-2024 11:13-0500 Diastolic blood pressure 79 mm[Hg] Katherine Hernandez Work Phone: [facility] 05-12-2024 11:13-0500 Heart rate 73 /min Katherine Keith MD Work Phone: [facility] 05-12-2024 11:13-0500 Respiratory rate 19 /min Katherine Keith MD Work Phone: [facility] 05-12-2024 11:13-0500 Systolic blood pressure 141 mm[Hg] Katherine Keith MD Work Phone: [facility] 05-12-2024 08:41-0500 Body height 182.9 cm Rhona Boss MD Work Phone: [facility] 05-12-2024 08:41-0500 Body mass index (BMI) [Ratio] 28.79 kg/m2 Rhona Boss MD Work Phone: [facility] 05-12-2024 08:41-0500 Body temperature 97 [degF] Rhona Boss MD Work Phone: [facility] 05-12-2024 08:41-0500 Body weight 96.3 kg Rhona Boss MD Work Phone: [facility] 05-12-2024 08:41-0500 Diastolic blood pressure 73 mm[Hg] Rhona Boss MD Work Phone: [facility] 05-12-2024 08:41-0500 Heart rate 67 /min Rhona Boss MD Work Phone: [facility] 05-12-2024 08:41-0500 SaO2% (BldA) [Mass fraction] 100 % Rhona Boss MD Work Phone: [facility] 05-12-2024 08:41-0500 Systolic blood pressure 157 mm[Hg] Rhona Hernandez Work Phone: [facility] 01-13-2024 13:17-0500 Body height 182.9 cm Katherine Keith MD Work Phone: [facility] 01-13-2024 13:17-0500 Body mass index (BMI) [Ratio] 27.8 kg/m2 Katherine Keith MD Work Phone: [facility] 01-13-2024 13:17-0500 Body weight 92.99 kg Katherine Keith MD Work Phone: [facility] 01-13-2024 13:17-0500 Diastolic blood pressure 68 mm[Hg] Katherine Hernandez Work Phone: [facility] 01-13-2024 13:17-0500 Heart rate 84 /min Katherine Keith MD Work Phone: [facility] 01-13-2024 13:17-0500 Systolic blood pressure 136 mm[Hg] Katherine Keith MD Work Phone: [facility] 11-12-2023 14:16-0400 Body height 182.9 cm Katherine Keith MD Work Phone: [facility] 11-12-2023 14:16-0400 Body mass index (BMI) [Ratio] 27.84 kg/m2 Katherine Keith MD Work Phone: [facility] 11-12-2023 14:16-0400 Body weight 93.1 kg Katherine Keith MD Work Phone: [facility] 11-12-2023 14:16-0400 Diastolic blood pressure 77 mm[Hg] Katherine Hernandez Work Phone: [facility] 11-12-2023 14:16-0400 Heart rate 71 /min Katherine Keith MD Work Phone: [facility] 11-12-2023 14:16-0400 Respiratory rate 18 /min Katherine Keith MD Work Phone: [facility] 11-12-2023 14:16-0400 SaO2% (BldA) [Mass fraction] 100 % Katherine Keith MD Work Phone: [facility] Comment on above: room air 11-12-2023 14:16-0400 Systolic blood pressure 146 mm[Hg] Katherine Keith MD Work Phone: [facility] 11-11-2023 13:43-0400 Blood Pressure Location Camryn MOOREL [facility] 11-11-2023 13:43-0400 Diastolic blood pressure 96 mm[Hg] Camryn NILL [facility] 11-11-2023 13:43-0400 Heart rate 72 /min Camryn NILL [facility] 11-11-2023 13:43-0400 Respiratory rate 16 /min Camryn NILL [facility] 11-11-2023 13:43-0400 Systolic blood pressure 136 mm[Hg] Camryn NILL [facility] 08-06-2023 09:43-0400 Body height 182.9 cm Pacc 1 Other Phone: [facility] 08-06-2023 09:43-0400 Body mass index (BMI) [Ratio] 26.43 kg/m2 Pacc 1 Other Phone: [facility] 08-06-2023 09:43-0400 Body temperature 98.1 [degF] Pacc 1 Other Phone: [facility] 08-06-2023 09:43-0400 Body weight 88.4 kg Pacc 1 Other Phone: [facility] 08-06-2023 09:43-0400 Diastolic blood pressure 69 mm[Hg] Pacc 1 Other Phone: [facility] 08-06-2023 09:43-0400 Heart rate 56 /min Pacc 1 Other Phone: [facility] 08-06-2023 09:43-0400 Respiratory rate 18 /min Pacc 1 Other Phone: [facility] 08-06-2023 09:43-0400 SaO2% (BldA) [Mass fraction] 100 % Pacc 1 Other Phone: [facility] 08-06-2023 09:43-0400 Systolic blood pressure 154 mm[Hg] Pacc 1 Other Phone: [facility] 04-30-2023 11:31-0500 Body height 182.9 cm Katherine Keith MD Work Phone: [facility] 04-30-2023 11:31-0500 Body weight 91.5 kg Katherine Keith MD Work Phone: [facility] 04-30-2023 11:31-0500 Diastolic blood pressure 69 mm[Hg] Katherine Hernandez Work Phone: [facility] 04-30-2023 11:31-0500 Heart rate 78 /min Katherine Keith MD Work Phone: [facility] 04-30-2023 11:31-0500 SaO2% (BldA) [Mass fraction] 96 % Katherine Keith MD Work Phone: [facility] 04-30-2023 11:31-0500 Systolic blood pressure 137 mm[Hg] Katherine Keith MD Work Phone: [facility] 10-30-2022 10:15-0400 Blood Pressure Location Shae Lue [facility] 10-30-2022 10:15-0400 Diastolic blood pressure 92 mm[Hg] Shae Lue [facility] 10-30-2022 10:15-0400 Heart rate 73 /min Shae Lue [facility] 10-30-2022 10:15-0400 Systolic blood pressure 145 mm[Hg] Shae Lue [facility] 10-28-2022 06:50-0400 Body height 182.88 cm MD Ester Cain Work Phone: [facility] 10-28-2022 06:50-0400 Body weight 83.91 kg MD Ester Cain Work Phone: [facility] 09-04-2022 07:45-0400 Blood Pressure Location Shae Lue [facility] 09-04-2022 07:45-0400 Diastolic blood pressure 98 mm[Hg] Shae Lue [facility] 09-04-2022 07:45-0400 Heart rate 51 /min Shae Lue [facility] 09-04-2022 07:45-0400 Respiratory rate 16 /min Shae Lue [facility] 09-04-2022 07:45-0400 Systolic blood pressure 175 mm[Hg] Shae Lue [facility] 04-03-2022 15:00-0500 Blood Pressure Location Camryn NILL [facility] [place] 04-03-2022 15:00-0500 Diastolic blood pressure 96 mm[Hg] Camryn MOORELew [facility] [place] 04-03-2022 15:00-0500 Heart rate 80 /min Camryn MOORELew [facility] [place] 04-03-2022 15:00-0500 Respiratory rate 16 /min Camryn MOORELew [facility] [place] 04-03-2022 15:00-0500 Systolic blood pressure 144 mm[Hg] Camryn MOOREL [facility] [place] Encounters Encounter Date Encounter Type Care Provider Facility Start: 09-27-2024 End: 09-27-2024 ambulatory Ester Cain MD Work Phone: [facility] Work Phone: Start: 09-27-2024 End: 09-27-2024 Patient encounter procedure CWS Mahamed Gray DPM [place] -Ultras[facility] Work Phone: Start: 09-17-2024 End: 09-17-2024 Bamboo flowsheet Mahamed Gray DPM Work Phone: [facility] Start: 09-17-2024 End: 09-17-2024 Bamboo flowsheet Mahamed Gray DPM Work Phone: [facility] Start: 09-17-2024 End: 09-17-2024 ambulatory MAHAMED GRAY Not Available Start: 07-19-2024 End: 07-19-2024 Admission to same day surgery center Alfonso Haqus PA-C Work Phone: Sp[facility] Surgery Comment on above: Therapy Start: 07-19-2024 End: 07-19-2024 ambulatory Alfonso Bonus PA-C Work Phone: [facility] Start: 07-15-2024 End: 07-15-2024 Admission to same day surgery center Alfonso Bonus PA-C Work Phone: [facility] Surgery Comment on above: S/P cervical spinal fusion (Primary Dx) Start: 07-15-2024 End: 07-15-2024 Telemedicine consultation with patient Alfonso Bonus PA-C Work Phone: [facility] Start: 07-15-2024 End: 07-15-2024 ambulatory KATHERINE KEITH Facility:[facility] Start: 06-29-2024 End: 06-29-2024 Telemedicine consultation with patient Alfonso Bonus PA-C Work Phone: [facility] [place] Start: 06-29-2024 End: 06-29-2024 ambulatory Alfonso Bonus PA-C Work Phone: [facility] [place] Comment on above: Spondylolysis, lumba r region (Primary Dx); S/P cervical spinal fusion X-ray scheduling Start: 06-28-2024 End: 06-28-2024 Refill Alfonso Bonus PA-C Work Phone: [facility] [place] Comment on above: Refill Request Start: 06-22-2024 End: 06-22-2024 ambulatory Alfonso Bonus PA-C Work Phone: [facility] [place] Comment on above: Add Prednisone? Start: 06-21-2024 End: 06-21-2024 Admission to same day surgery center Katherine Keith MD Work Phone: [facility] [place] Comment on above: Post surgery symptom s Refill Request Start: 06-21-2024 End: 06-21-2024 ambulatory Katherine Keith MD Work Phone: [facility] [place] Start: 06-16-2024 End: 06-16-2024 ambulatory ESTER Manning CARLITOSCandice Facility:[facility] Start: 06-16-2024 End: 06-16-2024 Patient encounter procedure Nurse Spine [facility] Main S[facility] [place] Comment on above: Encounter for remova l of sara (Primary Dx) Start: 06-14-2024 End: 06-14-2024 MC Get Medical Advice Alfonso Bonus PA-C Work Phone: [facility] [place] Comment on above: Med Refill Start: 06-11-2024 End: 06-11-2024 Telephone encounter Katherine Keith MD Work Phone: [facility] [place] Comment on above: Transition Of Care Start: 06-10-2024 End: 06-10-2024 ambulatory Alfonso Bonus PA-C Work Phone: [facility] [place] Comment on above: Sara removal Start: 06-09-2024 End: 06-09-2024 ambulatory Alfonso Bonus PA-C Work Phone: [facility] [place] Comment on above: Bathing instructions Start: 06-08-2024 End: 06-09-2024 Orders Only Maco Tse MD Work Phone: Cardiology Comment on above: SVT (supraventricula r tachycardia) (HCC) (Primary Dx); Elevated troponin Discharge Start: 06-04-2024 End: 06-04-2024 ambulatory Alfonso Bonus PA-C Work Phone: [facility] [place] Comment on above: Neck brace Start: 06-02-2024 End: 06-08-2024 Evaluation and management of inpatient KATHERINE KEITH Facility:[facility] Start: 06-01-2024 End: 06-01-2024 Admission to same day surgery center Alfonso Bonus PA-C Work Phone: [facility] [place] Comment on above: Phone number for charlette debbie time Start: 06-01-2024 End: 06-01-2024 ambulatory Alfonso Bonus PA-C Work Phone: [facility] [place] Start: 05-17-2024 End: 05-17-2024 ambulatory Olesya Veras RNdriver's license reviewing officer [facility] Start: 05-14-2024 ambulatory [facility] Facility: [facility] Start: 05-14-2024 End: 05-14-2024 Subsequent hospital visit by physician [facility] Work Phone: [facility] Comment on above: Spinal stenosis of c ervical region [M48.02] Start: 05-12-2024 End: 05-12-2024 ambulatory [facility] Facility:[facility] Start: 05-12-2024 End: 05-12-2024 Patient encounter procedure Katherine Keith MD Work Phone: [facility] [place] Comment on above: Cervical spondylosis with myelopathy (Primary Dx); Spinal stenosis of cervical region Start: 05-12-2024 End: 05-12-2024 Admission to establishment Rhona Boss MD Work Phone: [facility] Start: 05-12-2024 End: 05-12-2024 Preprocedural examination done Rhona Boss MD Work Phone: [facility] Work Phone: Start: 05-12-2024 End: 05-12-2024 ambulatory Rhona Boss MD Work Phone: [facility] Comment on above: Pre-op evaluation (P rimary Dx); Spinal stenosis of lumbar region, unspecified whether neurogenic claudication present; Primary hypertension Start: 05-12-2024 Encounter for other preprocedural examination RHONA BOSS [facility] Start: 05-10-2024 End: 05-10-2024 ambulatory ESTER CAIN Facility:[facility] Start: 05-06-2024 End: 05-06-2024 ambulatory Katherine Keith MD Work Phone: [facility] [place] Start: 05-06-2024 End: 05-06-2024 Patient encounter status Katherine Keith MD Work Phone: [facility] Start: 05-05-2024 End: 05-05-2024 Telemedicine consultation with patient Katherine Keith MD Work Phone: [facility] [place] Start: 05-05-2024 End: 05-05-2024 Admission to same day surgery center Katherine Keith MD Work Phone: [facility] [place] Comment on above: Neck surgery Start: 05-05-2024 End: 05-05-2024 ambulatory Katherine Keith MD Work Phone: [facility] [place] Comment on above: Cervical spondylosis with myelopathy (Primary Dx) Start: 04-06-2024 End: 04-06-2024 ambulatory Alfonso Loyd PA-C Work Phone: [facility] [place] Comment on above: Request for Medical records Start: 02-21-2024 End: 02-21-2024 ambulatory ESTER CAIN Facility:[facility] Start: 02-21-2024 End: 02-21-2024 Subsequent hospital visit by physician Mri 7 Radio Main Q (I-Stat/1.5t/3t) Work Phone: MRI Q Comment on above: Spinal stenosis of c ervical region [M48.02] Start: 02-03-2024 End: 02-03-2024 Orders Only Alfonso Karina SCHWARTZ Work Phone: [facility] [place] Comment on above: Spinal stenosis of c ervical region (Primary Dx) Start: 01-13-2024 End: 01-13-2024 Patient encounter procedure Katherine Keith MD Work Phone: [facility] [place] Comment on above: S/P lumbar fusion (P rimary Dx); Right leg weakness Start: 01-13-2024 End: 01-13-2024 ambulatory ESTER CAIN Facility:[facility] Start: 01-13-2024 End: 01-13-2024 Patient encounter procedure Emg 1 Neur Main (Max Weight: 1000) Work Phone: Neurology Start: 01-13-2024 End: 01-13-2024 ambulatory ESTER CAIN Neurology Comment on above: EMG Start: 01-13-2024 End: 01-13-2024 ambulatory KATHERINE KEITH Facility:[facility] Start: 01-13-2024 End: 01-13-2024 Subsequent hospital visit by physician Mri 4 Radio Main Q (I-Stat/1.5t/3t) Work Phone: MRI Q Comment on above: Adverse effect of tr eatment, sequela [T88.9XXS] Acute low back pain, unspecified back pain laterality, unspecified whether sciatica present [M54.50] Start: 12-16-2023 End: 12-16-2023 ambulatory Camryn AGUSTIN Facility:[facility] Start: 12-16-2023 End: 12-16-2023 Patient encounter procedure Camryn AGUSTIN [facility] [place] Start: 12-05-2023 End: 12-05-2023 Telephone encounter Katherine Keith MD Work Phone: [facility] [place] 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 Work Phone: Start: 11-26-2023 End: 11-26-2023 Departed Referred MD Ester Cain Work Phone: [facility] Start: 11-26-2023 End: 11-26-2023 ambulatory Camryn AGUSTIN Facility:[id number] Start: 11-21-2023 End: 11-24-2023 ambulatory Alfonso Loyd PA-C Work Phone: [facility] [place] Comment on above: Tests Start: 11-12-2023 End: 11-12-2023 Patient encounter procedure Katherine Keith MD Work Phone: [facility] [place] Comment on above: Adverse effect of tr eatment, sequela (Primary Dx); Acute low back pain, unspecified back pain laterality, unspecified whether sciatica present Start: 11-12-2023 End: 11-13-2023 Follow-up encounter Katherine Keith MD Work Phone: [facility] [place] Comment on above: Follow up med reques t Start: 11-12-2023 End: 11-13-2023 ambulatory Katherine Keith MD Work Phone: [facility] [place] Start: 11-12-2023 End: 11-12-2023 Subsequent hospital visit by physician Vaishnavi Main J1-4 Work Phone: Radiology Comment on above: History of laminecto my [Z98.890] Start: 11-11-2023 End: 11-11-2023 Follow-up encounter Katherine Keith MD Work Phone: [facility] [place] Comment on above: Surgery followup Start: 11-11-2023 End: 11-11-2023 ambulatory Katherine Keith MD Work Phone: [facility] [place] Start: 11-11-2023 End: 11-11-2023 Patient encounter procedure Camryn AGUSTIN [facility] Start: 11-05-2023 End: 11-05-2023 Telephone encounter Alfonso Bonus PA-C Work Phone: [facility] [place] Comment on above: Refill Request Insurance Authorizat ion Start: 10-29-2023 End: 10-30-2023 Refill Alfonso Bonus PA-C Work Phone: [facility] [place] Comment on above: Refill Request Start: 10-23-2023 ambulatory Alfonso Bonus PA-C Work Phone: [facility] [place] Comment on above: Office number Start: 10-22-2023 ambulatory Alfonso Bonus PA-C Work Phone: [facility] [place] Comment on above: Medication Start: 10-21-2023 End: 10-21-2023 ambulatory Alfonso Bonus PA-C Work Phone: [facility] [place] Comment on above: Right leg weakness ( Primary Dx); S/P lumbar fusion Fax numbers Start: 10-21-2023 End: 10-21-2023 Telemedicine consultation with patient Alfonso Bonus PA-C Work Phone: [facility] [place] Start: 10-16-2023 Telephone encounter Katherine wright MD Work Phone: Neurology Comment on above: medication Start: 10-15-2023 Refill Alfonso Bonus PA-C Work Phone: [facility] [place] Comment on above: Refill Request Start: 10-09-2023 MC Get Medical Advice Katherine Keith MD Work Phone: [facility] [place] Comment on above: Script refills Start: 10-02-2023 End: 10-04-2023 Evaluation and management of inpatient KATHERINE KEITH Facility:[facility] Start: 09-30-2023 Telephone encounter Aaron (Rsr [facility] Comment on above: Research Start: 09-30-2023 End: 09-30-2023 Nursing evaluation of patient and report Melody Castaneda RN [facility] [place] [facility] Comment on above: S/P lumbar spinal fu grace (Primary Dx) Start: 09-30-2023 End: 09-30-2023 ambulatory ESTER CAIN Facility:[facility] Start: 09-24-2023 Telephone encounter Judi Hackett [facility] [place] [facility] Comment on above: CARE CONTINUUM ADVIS OR ASSESSMENT Start: 09-21-2023 Refill Alfonso CANELAC Work Phone: [facility] [place] Comment on above: Refill Request Start: 09-18-2023 End: 09-18-2023 Refill Stephane CANELAC Work Phone: [facility] [place] Comment on above: Refill Request Start: 09-17-2023 ambulatory Katherine Keith MD Work Phone: [facility] [place] Start: 09-17-2023 Patient encounter status Margarette Keith MD Work Phone: [facility] Start: 09-16-2023 ambulatory Katherine Keith MD Work Phone: [facility] [place] Comment on above: Legs swelling Start: 09-16-2023 Telephone encounter Katherine wright MD Work Phone: Neurology Comment on above: Patient Update Start: 09-15-2023 MC Get Medical Advice Katherine Keith MD Work Phone: [facility] [place] Comment on above: Med refill Start: 09-11-2023 ambulatory Katherine Keith MD Work Phone: [facility] [place] Comment on above: Meds at home discuss ion Start: 09-09-2023 ambulatory Alfonso KHALIL-C Work Phone: [facility] [place] Comment on above: Trevor Rodriguez Start: 09-09-2023 Follow-up encounter Katherine wright MD Work Phone: [facility] [place] Comment on above: Surgery followup Start: 09-07-2023 End: 09-10-2023 Evaluation and management of inpatient CHRISTIANNE ZIEGLER Facility:[facility] Start: 09-05-2023 Refill Alfonso Haqus PA-C Work Phone: Medical Records Comment on above: Refill Request Start: 09-04-2023 Telephone encounter Katherine wright MD Work Phone: Neurology Comment on above: Patient Update Start: 09-02-2023 Refill Alfonso Bonus PA-C Work Phone: [facility] [place] Comment on above: Refill Request Med refill Start: 09-01-2023 Admission to [facility] Katherine Keith MD Work Phone: [facility] [place] Comment on above: 08/19/23 surgery Start: 09-01-2023 ambulatory Katherine Keith MD Work Phone: [facility] [place] Start: 08-29-2023 Telephone encounter Katherine wright MD Work Phone: Neurology Comment on above: Medication Problem Start: 08-29-2023 End: 08-29-2023 ambulatory Alfonso Bonus PA-C Work Phone: [facility] [place] Comment on above: Acute post-operative pain Start: 08-29-2023 End: 08-29-2023 Telemedicine consultation with patient Alfonso Haqus PA-C Work Phone: [facility] [place] Start: 08-26-2023 MC Get Medical Advice Katherine Keith MD Work Phone: [facility] [place] Comment on above: Oxicodone medication refill Start: 08-22-2023 End: 08-22-2023 Evaluation and management of inpatient ETSER M ANT Facility:[facility] Start: 08-19-2023 End: 08-22-2023 Evaluation and management of inpatient KATHERINEJON VARGASE Facility:[facility] Start: 08-12-2023 End: 08-12-2023 ambulatory KATHERINE PELLE Facility:[facility] Start: 08-11-2023 Telephone encounter Judi MCKEON [facility] [place] Comment on above: Follow Up Start: 08-10-2023 ambulatory Olesya Veras RN [place] [id number] Comment on above: Blood Management Start: 08-06-2023 End: 08-06-2023 ambulatory ALFONSO LOYD [facility] Start: 08-06-2023 Encounter for other preprocedural examination [facility] Start: 08-06-2023 End: 08-06-2023 Admission to establishment [address] Other Phone: Pre Anesthesia Start: 08-06-2023 End: 08-06-2023 Patient encounter procedure Pacc Av 1 Other Phone: Pre Anesthesia Comment on above: Pre-op exam (Primary Dx); Primary hypertension; SVT (supraventricular tachycardia) (HCC); History of penicillin allergy Start: 08-06-2023 End: 08-06-2023 Preprocedural examination done Pacc [address] Other Phone: [facility] Work Phone: Start: 08-06-2023 End: 08-06-2023 ambulatory KATHERINE KEITH [facility] Start: 08-06-2023 Encounter for other preprocedural examination [facility] Start: 08-01-2023 Admission to [facility] Katherine Keith MD Work Phone: [facility] [place] Comment on above: Sooner Surgery Date Start: 08-01-2023 ambulatory Katherine Keith MD Work Phone: [facility] [place] Start: 08-01-2023 Telephone encounter Katherine wright MD Work Phone: [facility] [place] Comment on above: Patient Update Start: 07-30-2023 End: 07-30-2023 ambulatory ESTER CAIN Facility:[facility] Start: 07-14-2023 Telephone encounter Katherine wright MD Work Phone: [facility] [place] Comment on above: Forms Start: 07-11-2023 ambulatory Katherine Keith MD Work Phone: [facility] [place] Start: 07-11-2023 Patient encounter status Margarette Keith MD Work Phone: [facility] Start: 06-22-2023 Admission to same da y surgery center Katherine Keith MD Work Phone: [facility] [place] Comment on above: Surgery date Start: 06-22-2023 ambulatory Katherine Keith MD Work Phone: [facility] Start: 06-11-2023 ambulatory Katherine Keith MD Work Phone: [facility] Start: 06-11-2023 Documentation procedure Mark Keith MD Work Phone: [facility] Comment on above: LTD Documents Start: 06-11-2023 Telephone encounter Katherine wright MD Work Phone: [facility] Comment on above: Forms Start: 05-29-2023 Telephone encounter Katherine wright MD Work Phone: [facility] Comment on above: Schedule Surgery Start: 05-28-2023 Admission to same da y surgery center Katherine Keith MD Work Phone: [facility] Comment on above: Surgery date Start: 05-28-2023 ambulatory Katherine Keith MD Work Phone: [facility] Start: 05-23-2023 Admission to same da y surgery center Katherien Keith MD Work Phone: [facility] Comment on above: Surgery date Start: 05-23-2023 ambulatory Katherine Keith MD Work Phone: [facility] Start: 05-19-2023 Admission to same da y surgery center Katherine Keith MD Work Phone: [facility] Comment on above: Surgery schedule Start: 05-19-2023 ambulatory Katherine Keith MD Work Phone: [facility] Start: 05-04-2023 monet KEITH Facility: [facility] Start: 05-04-2023 End: 05-04-2023 Subsequent hospital visit by physician [facility] ([facility]) Work Phone: [facility] Radiology CT Scan Comment on above: Chronic low back simba n, unspecified back pain laterality, unspecified whether sciatica present [M54.50, G89.29] Start: 04-30-2023 End: 04-30-2023 Subsequent hospital visit by physician Vaishnavi Main A21 Radiology Comment on above: History of lumbar la minectomy for spinal cord decompression [Z98.890] Start: 04-30-2023 End: 04-30-2023 Patient encounter procedure Katherine Keith MD Work Phone: [facility] Comment on above: History of lumbar la minectomy for spinal cord decompression (Primary Dx); Degenerative scoliosis in adult patient; Chronic low back pain, unspecified back pain laterality, unspecified whether sciatica present Start: 04-30-2023 End: 04-30-2023 Subsequent hospital visit by physician Vaishnavi Main J1-4 Work Phone: Radiology Comment on above: Spinal stenosis, lum bar region with neurogenic claudication [M48.062] Start: 04-23-2023 ambulatory Shae Guillory Facility:[facility] Start: 03-19-2023 Chart abstracting Katherine landaverde MD Work Phone: Neurology Start: 01-08-2023 ambulatory Shae Guillory Facility:[facility] [place] Start: 12-05-2022 End: 12-05-2022 Patient encounter procedure Shae Guillory [facility] Start: 10-30-2022 End: 10-30-2022 Patient encounter procedure Shae Guillory [facility] Start: 10-28-2022 End: 10-28-2022 ambulatory MD Ester Cain Work Phone: [facility] Work Phone: Start: 10-28-2022 End: 10-28-2022 Patient encounter procedure MD Ester Cain Work Phone: [facility] [place] Work Phone: Start: 09-04-2022 End: 09-04-2022 Patient encounter procedure Shae Guillory [facility] Start: 05-21-2022 End: 05-21-2022 Patient encounter procedure Camryn AGUSTIN General Surgery Nill/[facility] Start: 05-07-2022 End: 05-07-2022 Patient encounter procedure Camryn AGUSTIN General Surgery Nill/S[facility] [place] Start: 04-22-[address] Ester Cain Facility:[id number] Start: 04-14-2022 Encounter for preprocedural laboratory examination DR CAMRYN AGUSTIN . [facility] Start: 04-11-2022 End: 04-12-2022 Encounter for preprocedural laboratory examination DR WILTON NICHOLE Facility:[facility]1 Start: 04-11-2022 End: 04-12-[address] WILTON NICHOLE Facility:[facility] Start: 04-03-2022 End: 04-03-2022 Patient encounter procedure Camryn AGUSTIN General Surgery Nill/Said [place] Start: 03-16-2022 End: 03-16-2022 ambulatory [facility] Facility:H1 Start: 03-06-2022 End: 03-07-[address] ESTER CAIN . Facility:[facility]1 Start: 01-18-2022 End: 01-19-[address] ESTER CAIN . Facility:[facility]1 Start: 01-02-2022 Encounter for genera l adult medical examination without abnormal findings DR ESTER CAIN . [facility] Start: 01-01-2022 End: 01-02-[address] ESTER CAIN . Facility:[facility] Start: 12-28-2021 End: 12-29-[address] ESTER CAIN . Facility:[facility] Start: 12-28-2021 End: 12-29-2021 Encounter for general adult medical examination without abnormal findings DR ESTER CAIN . Facility:[facility] Start: 07-31-2020 End: 08-01-2020 ambulatory ESTER CAIN Facility:[facility] Procedures Date Procedure Procedure Detail Performing Clinician Start: 05-12-2024 Antibody screen ESTER CAIN Comment on above: Order Comment: Speci men Type: BLOOD SPECIMENOrdering Facility: [facility] Address: [address] [place] [address] Performed By: #### T SCR30 ####CC MAIN BLOOD BANKCLIA [id number] [address] Start: 02-21-2024 Mri spinal canal cer vical w/o contrast matrl Alfonso KHALIL-Vikas Work Phone: Start: 01-13-2024 Nerve conduction suri dies 5-6 studies Meenakshi Morin MD Work Phone: Start: 01-13-2024 Ct lumbar spine w/o contrast material Meenakshi Morin MD Work Phone: Start: 01-13-2024 Mri spinal canal lum bar w/o contrast material Meenakshi Morin MD Work Phone: Start: 11-26-2023 Colonoscopy Mahamed Kusaúl odalis DPM Work Phone: Start: 11-26-2023 Colonoscopy Camryn MOODY LL Start: 11-12-2023 Radex spine lumbosac ral 2/3 views Alfonso Loyd PA-C Work Phone: Start: 10-02-2023 Antibody screen ESTER CAIN Comment on above: Order Comment: Speci men Type: BLOOD SPECIMENOrdering Facility: [facility] Address: [address] [place] [address] Performed By: #### T SCR ####CC MAIN BLOOD BANKCLIA [id number] [address] Start: 10-02-2023 Exploration spinal fusion Camryn AGUSTIN Start: 10-02-2023 Celaya facetectomy&fora mtomy 1 sgm ea crv thrc/lmbr Camryn AGUSTIN Start: 08-06-2023 Antibody screen KATHERINE KEITH Comment on above: Order Comment: Speci men Type: BLOOD SPECIMEN [facility] Facility[facility] Address: [address] [place] [address] [place] [address] Performed By: #### T SCR30 #### [facility] CLIA [id number] [address] [place], [place] [id number] [place] [address] Start: 08-06-2023 Ecg routine ecg w/le ast 12 lds i&r only Sanam KHALIL-C Work Phone: Start: 05-04-2023 Ct lumbar spine w/o contrast material Katherine Keith MD Work Phone: Start: 04-30-2023 Radex entir thrc lmb r crv sac spi w/skull 2/3 vw Katherine Keith MD Work Phone: Start: 04-30-2023 Radex spine lumbosac ral minimum 4 views Alfonso KHALIL-C Work Phone: Start: 11-27-2022 Transperineal needle biopsy of prostate Shae Guillory Start: 10-28-2022 MR prostate wo/w con MD Ester Cain Work Phone: Start: 04-29-2022 Laparoscopic repair of obstructed hernia of anterior abdominal wall Camryn AGUSTIN Start: 12-28-2021 PSA screening Edenilson delgado Comment on above: Performed By: #### P SASC, VITAD #### [facility] [address] [place] [address] Dr. Max Peck Start: 10-08-2012 Colonoscopy Camryn MOODY LL Start: 03-10-2012 Back structure, excl uding neck (body structure) Camryn AGUSTIN Start: 03-10-1999 Back structure, excl uding neck (body structure) Camryn AGUSTIN Start: 03-10-1993 Cholecystectomy Camryn AGUSTIN Excision of lesion of skin Nigel AGUSTIN Comment on above: tenriism and shave les on left neck Extraction of cataract Sergio AGUSTIN History of excision of lamina of lumbar vertebra for decompression of spinal cord History of lumbar laminectomy for spinal cord decompression Xr A21 History of excision of lamina of lumbar vertebra for decompression of spinal cord History of lumbar laminectomy for spinal cord decompression Katherine Keith MD Work Phone: Laminectomy Camryn AGUSTIN Comment on above: x 3-- 2019, 2013, 20 00 Lumbar spinal fusion Camryn AGUSTIN Revision of fusion o f lumbar spine Camryn AGUSTIN Plan of Treatment Date Care Activity Detail Author Start: 11-25-2033 Screening for malignant neoplasm of colon [facility] Start: 06-09-2027 Diabetes Screening Diabetes Screening [facility] Start: 06-05-2027 Diabetes Screening Diabetes Screening [facility] Start: 05-13-2027 Diabetes Screening Diabetes Screening [facility] Start: 12-28-2026 Prostate specific antigen measurement Prostate Cancer Screening Discussion [facility] Start: 10-03-2026 Diabetes Screening Diabetes Screening [facility] Start: 09-09-2026 Diabetes Screening Diabetes Screening [facility] Start: 09-06-2026 Diabetes Screening Diabetes Screening [facility] Start: 08-21-2026 Diabetes Screening Diabetes Screening [facility] Start: 08-05-2026 Diabetes Screening Diabetes Screening [facility] Start: 11-08-2024 Influenza vaccination [facility] Start: 09-27-2024 Pulse volume recorder pneumoplethysmography [facility] Start: 09-17-2024 End: 09-17-2024 Patient encounter procedure 09/17/2024 10:30 AM EDT Office Visit [facility] [address] [place] [address] Mahamed Gray DPM [address] [place] [address] Arrived [facility] Comment on above: Arrived Start: 07-15-2024 End: 07-15-2024 Admission to same day surgery center 07/15/2024 9:[address] [facility] [address] [place] [address] [address] [place] [address] Alfonso Loyd PA-C [address] [place] [address] POST-OP 6-8WKS Spine Surgery Comment on above: POST-OP 6-8WKS Start: 07-09-2024 End: 07-09-2024 Patient encounter procedure Radiology Comment on above: POST-OP Elevated troponin af ter spine surgery Start: 06-29-2024 End: 06-29-2024 ambulatory 06/29/2024 9:[address] [facility] [address] [place] [address] Alfonso Loyd PA-C [address] [place] [address] POST-2WKS [facility] Comment on above: POST-2WKS Start: 06-16-2024 End: 06-16-2024 Patient encounter procedure 06/16/2024 10:00 AM EDT Office Visit [facility] [address] [place], [place] [phone] Staple Removal [facility] Comment on above: Staple Removal Start: 06-16-2024 End: 06-16-2024 ambulatory 06/16/2024 9:[address] [facility] [address] [place] [address] Alfonso Loyd PA-C [address] [place] [address] POST-2WKS [facility] Comment on above: POST-2WKS Start: 06-02-2024 End: 06-02-2024 Admission to same day surgery center [facility] Comment on above: Schedule surgery CERVICAL LAMINOPLAST Y WITH DECOMPRESSION 2 OR MORE SEGMENTS Start: 06-02-2024 End: 06-02-2024 Admission to same day surgery center 06/02/2024 8:30 AM EDT - 06/02/2024 11:27 AM EDT Surgery Admitting [address] [place] [address] Katherine Keith MD [address] [place] [address] CERVICAL LAMINOPLASTY WITH DECOMPRESSION 2 OR MORE SEGMENTS Admitting Comment on above: CERVICAL LAMINOPLASTY WITH DECOMPRESSION 2 OR MORE SEGMENTS Start: 06-02-2024 End: 06-02-2024 Lamop cervical w/dcmprn spi cord 2/> vert seg [facility] Start: 06-02-2024 End: 06-02-2024 Lamoplasty cervical dcmprn cord 2/> seg rcnstj [facility] Start: 06-02-2024 Subsequent hospital visit by physician Admitting Comment on above: Spinal stenosis of cervical region [M48. 02] Start: 05-12-2024 End: 06-02-2024 STAPHYLOCOCCUS AUREUS & MRSA SCREEN, PCR, NASAL STAPHYLOCOCCUS AUREUS & MRSA SCREEN, PCR, NASAL Lab Routine Pre-op testing Expected: 05/12/2024 (Approximate), Expires: 06/02/2024 [facility] Comment on above: Expected: 05/12/2024 (Approximate), Expi res: 06/02/2024 Start: 05-12-2024 End: 05-12-2024 Patient encounter procedure 05/12/2024 11:30 AM EST Office Visit [facility] [address] [place] [address] Katherine Keith MD [address] [place] [address] PRE-OP CLEARANCE [facility] Comment on above: PRE-OP CLEARANCE Start: 05-12-2024 End: 05-12-2024 Patient encounter procedure Admitting Comment on above: PRE-OP CLEARANCE Start: 05-12-2024 End: 05-12-2024 Anesthesia consultation 05/12/2024 9:20 AM EST PAT Pre Anesthesia [address] [place] [address] 9, Pacc Main [address] [place] [address] PRE-OP CLEARANCE Pre Anesthesia Comment on above: PRE-OP CLEARANCE Start: 05-10-2024 End: 05-10-2024 Patient encounter procedure 05/10/2024 10:00 AM EST Office Visit [facility] Screening [place] [address] REGISTRATION [facility] Screening Comment on above: REGISTRATION Start: 05-06-2024 End: 06-02-2024 CBC W Auto Differential panel - Blood COMPLETE BLOOD COUNT AND DIFFERENTIAL Lab Routine Iron deficiency anemia, unspecified iron deficiency anemia type Expected: 05/06/2024 (Approximate), Expires: 06/02/2024 [facility] Comment on above: Expected: 05/06/2024 (Approximate), Expi res: 06/02/2024 Start: 05-06-2024 End: 06-02-2024 Ferritin [Mass/volume] in Serum or Plasma FERRITIN Lab Routine Iron deficiency anemia, unspecified iron deficiency anemia type Expected: 05/06/2024 (Approximate), Expires: 06/02/2024 [facility] Comment on above: Expected: 05/06/2024 (Approximate), Expi res: 06/02/2024 Start: 05-06-2024 End: 06-02-2024 Iron and Iron binding capacity panel - Serum or Plasma IRON AND TIBC Lab Routine Iron deficiency anemia, unspecified iron deficiency anemia type Expected: 05/06/2024 (Approximate), Expires: 06/02/2024 [facility] Work Phone: Comment on above: Expected: 05/06/2024 (Approximate), Expi res: 06/02/2024 Start: 03-10-2024 Advance Directive Discussion Advance Directive Discussion [facility] Start: 01-13-2024 End: 01-13-2024 Patient encounter procedure 01/13/2024 1:40 PM EST Office Visit [facility] [address] [place] [address] Katherine Keith MD [address] [place] [address] f/u with provider [facility] Comment on above: f/u with provider Start: 01-13-2024 End: 01-13-2024 ambulatory 01/13/2024 9:30 AM EST Procedure Neurology [address] [place] [address] Adverse effect of treatment, sequela [T88.9XXS] Neurology Comment on above: Adverse effect of treatment, sequela [T8 8.9XXS] Start: 01-13-2024 End: 01-13-2024 Patient encounter procedure 01/13/2024 8:30 AM EST Appointment MRI Q [address] [address] MRI LUMBAR SPINE WO IVCON MRI Q Comment on above: MRI LUMBAR SPINE WO IVCON Start: 01-13-2024 End: 01-13-2024 Patient encounter procedure MRI Q Comment on above: MRI THORACIC SPINE WO IVCON Acute low back pain, unspecified back pain laterality, unspecified whether sciatica present [M54.50] Start: 11-12-2023 End: 11-12-2023 Patient encounter procedure 11/12/2023 2:20 PM EDT Office Visit [facility] [address] [place] [address] Katherine Keith MD [address] [place] [address] post op in person [facility] Comment on above: post op in person Start: 11-12-2023 End: 11-12-2023 Patient encounter procedure 11/12/2023 1:10 PM EDT Appointment Radiology [address] [place] [address] post op lumbar Radiology Comment on above: post op lumbar Start: 11-09-2023 Covid-19 Vaccine () Covid-19 Vaccine () [facility] Start: 11-09-2023 Covid-19 Vaccine ( season) Covid-19 Vaccine ( season) [facility] Start: 11-09-2023 Influenza vaccination [facility] Start: 10-21-2023 End: 10-21-2023 ambulatory 10/21/2023 8:[address] [facility] [address] [place] [address] Alfonso Loyd PA-C [address] [place] [address] MYC Postop [facility] Comment on above: MYC Postop Start: 10-14-2023 End: 10-14-2023 Patient encounter procedure Radiology Comment on above: post op lumbar post op in person Start: 10-08-2023 End: 10-08-2023 Patient encounter procedure 10/08/2023 12:40 PM EDT Office Visit [facility] [address] [place], [place] [phone] Katherine Keith MD [address] [place] [address] post op in person [facility] Comment on above: post op in person Start: 10-08-2023 End: 10-08-2023 Patient encounter procedure 10/08/2023 11:30 AM EDT Appointment Radiology [address] [place], [place] [phone] post op lumbar Radiology Comment on above: post op lumbar Start: 10-02-2023 End: 10-02-2023 Admission to same day surgery center Admitting Comment on above: EXPLORATION OF SPINAL FUSION Start: 10-02-2023 End: 10-02-2023 Exploration spinal fusion [facility] Start: 10-02-2023 End: 10-02-2023 Celaya facetectomy & foramotomy 1 segment lumbar [facility] Start: 10-02-2023 End: 10-02-2023 Celaya facetectomy&foramtomy 1 sgm ea crv thrc/lmbr [facility] Start: 10-02-2023 End: 10-02-2023 Posterior segmental instrumentation 3-6 vrt seg [facility] Start: 10-02-2023 Subsequent hospital visit by physician Admitting Comment on above: S/P lumbar spinal fusion [Z98.1] Start: 09-30-2023 End: 09-30-2023 Nursing evaluation of patient and report 09/30/2023 10:00 AM EDT Nurse Visit [facility] [address] [place], [place] [phone] Melody Castaneda, RN Phone Education [facility] Comment on above: Phone Education Start: 09-18-2023 End: 09-18-2023 Patient encounter procedure 09/18/2023 2:00 PM EDT Office Visit [facility] Screening [place] [phone] Hillary [employer] [facility] Screening Comment on above: Hillary Start: 09-17-2023 End: 12-17-2023 STAPHYLOCOCCUS AUREUS & MRSA SCREEN, PCR, NASAL STAPHYLOCOCCUS AUREUS & MRSA SCREEN, PCR, NASAL Lab Routine S/P lumbar spinal fusion Pre-op testing Expected: 09/17/2023, Expires: 12/17/2023 [facility] Work Phone: Comment on above: Expected: 09/17/2023, Expires: Start: 09-16-2023 End: 09-16-2023 ambulatory 09/16/2023 10:[address] [facility] [address] [place], [place] [phone] Alfonso Loyd PA-C [address] [place] [address] 2 week post op( virtual visit) [facility] Comment on above: 2 week post op( virtual visit) Start: 09-02-2023 End: 09-02-2023 Admission to same day surgery center 09/02/2023 7:30 AM EDT - 09/02/2023 2:00 PM EDT Surgery Admitting [address] [place] [address] Katherine Keith MD [address] [place] [address] LAT LUMBAR SPINE FUSION Admitting Comment on above: LAT LUMBAR SPINE FUSION Start: 09-02-2023 End: 09-02-2023 Arthrodesis lat extracavitary [...] 09/02/2023 7:30 AM EDT Hospital Encounter Admitting [address] [place] [address] Katherine Keith MD [address] [place] [address] History of laminectomy [Z98.890] Admitting Comment on above: History of laminectomy [Z98.890] Start: 08-29-2023 End: 08-29-2023 ambulatory 08/29/2023 8:[address] [facility] [address] [place] [id number] Alfonso Loyd PA-C [address] [place] [address] 2 week post op( virtual visit) [facility] Comment on above: 2 week post op( virtual visit) Start: 08-28-2023 End: 08-28-2023 ambulatory 08/28/2023 10:[address] [facility] Patient Outreach [facility] [address] [place] [phone] Provider, Nurse Adolfo Keating [address] [place] [address] Nurse KEATING [facility] Comment on above: ROBERTO Start: 08-19-2023 End: 08-19-2023 Admission to same day surgery center 08/19/2023 7:30 AM EDT - 08/19/2023 2:00 PM EDT Surgery Admitting [address] [place] [address] Katherine Keith MD [address] [place] [id number] LAT LUMBAR SPINE FUSION Admitting Comment on above: LAT LUMBAR SPINE FUSION Start: 08-19-2023 End: 08-19-2023 Arthrodesis lat extracavitary [...] 7:30 AM EDT Hospital Encounter Admitting [address] [place] [address] Katherine Keith MD [address] [place] [address] History of laminectomy [Z98.890] Admitting Comment on above: History of laminectomy [Z98.890] Start: 08-12-2023 End: 08-12-2023 ambulatory 08/12/2023 2:[address] [facility] [address] [place] [address] Provider, Nurse Adolfo Keating [address] [place] [address] Nurse KEATING [facility] Comment on above: Nurse KEATING Start: 08-11-2023 End: 11-10-2023 CBC W Auto Differential panel - Blood COMPLETE BLOOD COUNT AND DIFFERENTIAL Lab Routine History of laminectomy Degenerative scoliosis in adult patient Pre-op testing Iron deficiency anemia, unspecified iron deficiency anemia type Expected: 08/11/2023 (Approximate), Expires: 11/10/2023 [facility] Comment on above: Expected: 08/11/2023 (Approximate), Expi res: 11/10/2023 Start: 08-11-2023 End: 11-10-2023 Ferritin [Mass/volume] in Serum or Plasma FERRITIN Lab Routine History of laminectomy Degenerative scoliosis in adult patient Pre-op testing Iron deficiency anemia, unspecified iron deficiency anemia type Expected: 08/11/2023 (Approximate), Expires: 11/10/2023 [facility] Comment on above: Expected: 08/11/2023 (Approximate), Expi res: 11/10/2023 Start: 08-11-2023 End: 11-10-2023 Iron and Iron binding capacity panel - Serum or Plasma IRON AND TIBC Lab Routine History of laminectomy Degenerative scoliosis in adult patient Pre-op testing Iron deficiency anemia, unspecified iron deficiency anemia type Expected: 08/11/2023 (Approximate), Expires: 11/10/2023 [facility] Work Phone: Comment on above: Expected: 08/11/2023 (Approximate), Expi res: 11/10/2023 Start: 08-11-2023 End: 11-10-2023 STAPHYLOCOCCUS AUREUS & MRSA SCREEN, PCR, NASAL STAPHYLOCOCCUS AUREUS & MRSA SCREEN, PCR, NASAL Lab Routine History of laminectomy Degenerative scoliosis in adult patient Pre-op testing Expected: 08/11/2023 (Approximate), Expires: 11/10/2023 [facility] Comment on above: Expected: 08/11/2023 (Approximate), Expi res: 11/10/2023 Start: 08-06-2023 End: 08-06-2023 Patient encounter procedure Pre Anesthes ia Comment on above: pre op pre op labs Start: 07-30-2023 End: 07-30-2023 Patient encounter procedure 07/30/2023 10:30 AM EDT Office [place] [phone] pre op gc [employer] Screening Comment on above: pre op gc Start: 03-10-2023 Advance Directive Discussion Advance Directive Discussion [facility] Start: 03-10-2023 Behavioral Health Screening Behavioral Health Screening [facility] Start: 03-10-2023 Depression Assessment Depression Assessment [facility] Start: 11-08-2022 Covid-19 Vaccine ( season) Covid-19 Vaccine ( season) [facility] Start: 11-08-2022 Influenza [facility] Start: 2022 Pneumococcal Vaccine: 65+ (1 of 1 - PCV) Pneumococcal Vaccine: 65+ (1 of 1 - PCV) [facility] Start: 2017 RSV Vaccine (1 - 1-dose 60+ series) RSV Vaccine (1 - 1-dose 60+ series) [facility] Start: 2017 RSV Vaccine (1 - Risk 60-74 years 1-dose series) RSV Vaccine (1 - Risk 60-74 years 1-dose series) [facility] Start: 2012 Prostate specific antigen measurement Prostate Cancer Screening Discussion [facility] Start: 2007 Pneumococcal Vaccine: 50+ (1 of 1 - PCV) Pneumococcal Vaccine: 50+ (1 of 1 - PCV) [facility] Start: 2007 Pneumococcal Vaccine: 65+ Years (1 of 1 - PCV) Pneumococcal Vaccine: 65+ Years (1 of 1 - PCV) [facility] Start: 2007 Shingrix Vaccine (1 of 2) Shingrix Vaccine (1 of 2) [facility] Start: 2002 Diabetes Screening Diabetes Screening [facility] Start: 2002 Screening for malignant neoplasm of colon [facility] Start: 1992 Lipid panel Lipid Screening [facility] Start: 1976 Urine microalbumin profile DTaP,Tdap,Td Vaccine (1 - Tdap) [facility] Start: 1975 Annual PCP Team Chronic Disease Visit Annual PCP Team Chronic Disease Visit [facility] Start: 1975 Anxiety Screening Anxiety Screening [facility] Start: 1975 BP Controlled (<130/80) BP Controlled (<130/80) [facility] Start: 1975 Depression Screening Depression Screening [facility] Start: 1975 Hepatitis C screening Hepatitis C Screening [facility] Start: 1957 Covid-19 Vaccine (#1) Covid-19 Vaccine (#1) [facility] Start: 1957 Screening for malignant neoplasm of colon [facility] CT Cervical spine WO contrast CT CERVICAL SPINE WO IVCON Radiology Routine Spinal stenosis of cervical region 05/14/2024 9:43 AM EST [facility] Work Phone: End: 12-11-2024 CT Lumbar spine WO contrast CT LUMBAR SPINE WO IVCON Radiology Routine Acute low back pain, unspecified back pain laterality, unspecified whether sciatica present 1 Occurrences starting 11/12/2023 until 12/11/2024 [facility] Comment on above: 1 Occurrences starting 11/12/2023 until 12/11/2024 ECG COMPLETE ECG COMPLETE ECG Routine Pre-op exam 08/06/2023 8:48 AM EDT [facility] Work Phone: End: 06-08-2025 ECG COMPLETE ECG COMPLETE ECG Routine SVT (supraventricular tachycardia) (HCC) Elevated troponin 1 Occurrences starting 06/08/2024 until 06/08/2025 [facility] Work Phone: Comment on above: 1 Occurrences starting 06/08/2024 until 06/08/2025 End: 04-30-2024 EMG(NEURO/NI) EMG(NEURO/NI) EMG Routine History of lumbar laminectomy for spinal cord decompression Degenerative scoliosis in adult patient Chronic low back pain, unspecified back pain laterality, unspecified whether sciatica present 1 Occurrences starting 04/30/2023 until 04/30/2024 [facility] Work Phone: Comment on above: 1 Occurrences starting 04/30/2023 until 04/30/2024 End: 11-11-2024 EMG(NEURO/NI) EMG(NEURO/NI) EMG Routine Adverse effect of treatment, sequela 1 Occurrences starting 11/12/2023 until 11/11/2024 [facility] Comment on above: 1 Occurrences starting 11/12/2023 until 11/11/2024 End: 03-04-2025 MR Cervical spine WO contrast MRI CERVICAL SPINE WO IVCON Radiology Routine Spinal stenosis of cervical region 1 Occurrences starting 02/03/2024 until 03/04/2025 [facility] Work Phone: Comment on above: 1 Occurrences starting 02/03/2024 until 03/04/2025 End: 12-11-2024 MR Lumbar spine WO contrast MRI LUMBAR SPINE WO IVCON Radiology Routine Adverse effect of treatment, sequela 1 Occurrences starting 11/12/2023 until 12/11/2024 [facility] Comment on above: 1 Occurrences starting 11/12/2023 until 12/11/2024 End: 12-11-2024 MR Thoracic spine WO contrast MRI THORACIC SPINE WO IVCON Radiology Routine Adverse effect of treatment, sequela 1 Occurrences starting 11/12/2023 until 12/11/2024 [facility] Work Phone: Comment on above: 1 Occurrences starting 11/12/2023 until 12/11/2024 End: 04-19-2024 Radex spine lumbosacral minimum 4 views XR LUMBAR MOTION 4V AP/LAT/ FLEX/EXT Radiology Routine Spinal stenosis, lumbar region with neurogenic claudication 1 Occurrences starting 03/21/2023 until 04/19/2024 [facility] Work Phone: Comment on above: 1 Occurrences starting 03/21/2023 until 04/19/2024 End: 06-05-2025 XR Cervical spine AP and Lateral XR CERV GENERAL 2V AP/LAT Radiology Routine Spinal stenosis of cervical region 1 Occurrences starting 05/06/2024 until 06/05/2025 [facility] Comment on above: 1 Occurrences starting 05/06/2024 until 06/05/2025 End: 07-29-2025 XR Cervical spine AP and Lateral XR CERV GENERAL 2V AP/LAT Radiology Routine S/P cervical spinal fusion 1 Occurrences starting 06/29/2024 until 07/29/2025 [facility] Work Phone: Comment on above: 1 Occurrences starting 06/29/2024 until 07/29/2025 End: 08-10-2024 XR Lumbar spine AP and Lateral XR LUMBAR LIMITED 2V AP/LAT Radiology Routine History of laminectomy Degenerative scoliosis in adult patient 1 Occurrences starting 07/11/2023 until 08/10/2024 [facility] Comment on above: 1 Occurrences starting 07/11/2023 until 08/10/2024 [facility] Immunizations Immunization Date Immunization Notes Care Provider Asmita [facility] 12-29-2020 influenza virus vaccine, unspecified formulation Shae Kahlil [facility] 12-29-2020 SARS-CoV-2 (COVID-19 ) mRNA BNT-162b2 vax Camryn NILL [facility] 06-09-2020 SARS-CoV-2 (COVID-19 ) mRNA BNT-162b2 vax Camryn NILL [facility] 05-19-2020 SARS-CoV-2 (COVID-19 ) mRNA BNT-162b2 vax Camryn NILL [facility] Comment on above: Result Comment: 2022: [id number] NEGATED: Highlighted row has not occurred!04-03-2022 influenza virus vaccine, unspecified formulation [place] NILL [facility]: Highlighted row has not occurred!05-27-2019 influenza virus vaccine, live, attenuated, for intranasal use Camryn AGUSTIN [facility] [place] Payers Date Payer Category Payer Self-pay 2015 Private Health Insurance [id number] 1959 Private Health Insurance [id number] 1957 Unknown [id number] 1957 Unknown [id number] 1957 Unknown [id number] 1957 Unknown [id number] 1957 Unknown [id number] 1957 Unknown [id number] [id number] 1957 Unknown [id number] [id number] 1957 Unknown [id number] [id number] 1957 Unknown [id number] [id number] 1957 Unknown [id number] [id number] 1957 Unknown [id number] [id number] 1957 Unknown [id number] [id number] 1957 Unknown [id number] [id number] 1957 Unknown [id number] [id number] Unknown Regular Insurance [id number] Social History Date Type Detail Facility Start: 04-03-2022 End: 04-30-2023 Tobacco smoking status Never smoked tobacco (finding) [facility] Tobacco smoking status Never [facility] [place] Start: 04-30-2023 End: 08-06-2023 Sex Assigned At Male Johny Aleman [facility] Start: 1955 Sex Assigned At Male [facility] Start: 09-12-2008 End: 04-30-2023 Alcohol intake Not Asked [facility] Start: 03-20-2023 Gender identity Identifies as male gender (finding) [facility] Start: 03-20-2023 Sexual orientation Heterosexual (finding) [facility] Start: 04-30-2023 Tobacco use and exposure Former smokeless tobacco user [facility] End: 03-10-1999 History of tobacco use Chews Tobacco [facility] Start: 04-30-2023 End: 08-06-2023 History of Social function [facility] Start: 08-06-2023 End: 05-12-2024 Alcohol intake Lifetime non-drinker (finding) [facility] Has the [employer], [employer], or water [employer] threatened to shut off services in your home in past 12Mo No [facility] (I/We) worried miranda er (my/our) food would run out before (I/we) got money to buy more. Never true [facility] Tobacco smoking stat us NHIS Tobacco smoking consumption unknown [facility] Start: 1955 Sex assigned at Not on file [facility] Sex Male (finding) [facility] Medical Equipment Procedure Code Equipment Code Equipment Origin al Text Equipment Identifier Dates Signify Gel Inst afill Cartridge 5cc [id number] Start: 06-11-2024 Creo Mis Locking Cap [id number] Sta rt: 08-19-2023 Graft Infuse 20g a Medium Bovine Collagen Rhbmp-2 2x1in Bone Vial Absorbable - [id number] Start: 08-19-2023 Signify Gel Inst afill Cartridge 5cc [id number] Start: 08-19-2023 Creo Mis 5.5mm C urved Jw Ti Alloy 10cm [id number] Start: 08-19-2023 Creo Mis 5.5mm C urved Jw Ti Alloy 11cm [id number] Start: 08-19-2023 5.0x45 [id number] Start: 08-19-2023 Creo One Robotic Modular Screw 6.5mm X 50mm [id number] Start: 08-19-2023 Creo One Robotic Modular Screw 6.5mm X 55mm [id number] Start: 08-19-2023 4.5x45 [id number] Start: 08-19-2023 Spacer Rise-L 3d Lordotic [id number] Spinal Nonsterile [id number] Start: 08-19-2023 Spacer Rise-L 3d Lordotic [id number] Spinal Nonsterile [id number] Start: 08-19-2023 Plate Canopy 9mm Bone Shelf Inline Spine - [id number] Start: 06-02-2024 Screw Canopy 2.6 mm 4mm Bone Self Drill Laminoplasty Spine - [id number] Start: 06-02-2024 Canopy 2.6mm Scr ew Self-Drilling 6mm [id number] Start: 06-02-2024 Functional Status Date Assessment Result Facility 06-08-2024 Are you deaf, or do you have serious difficulty hearing No 06/08/2024 3:04 PM Markus Crews RN No [facility] 06-08-2024 Are you blind, or do you have serious difficulty seeing, even when wearing glasses No 06/08/2024 3:04 PM Markus Crews, PATRICIA No [facility] 06-08-2024 Do you have serious difficulty walking or climbing stairs No 06/08/2024 3:04 PM Markus Crews RN No [facility] 06-08-2024 Do you have difficul ty dressing or bathing Yes 06/08/2024 3:04 PM Markus Crews, PATRICIA Yes [facility] 06-08-2024 Because of a physica l, mental, or emotional condition, do you have difficulty doing errands alone such as visiting a physician's office or shopping Yes 06/08/2024 3:04 PM Markus Crews, RN Yes [facility] 11-11-2023 Functional Status N/A [facility] 10-04-2023 Are you deaf, or do you have serious difficulty hearing No 10/04/2023 11:49 AM Hayley Parrish, PATRICIA No [facility] 10-04-2023 Are you blind, or do you have serious difficulty seeing, even when wearing glasses No 10/04/2023 11:49 AM Hayley Parrish, PATRICIA No [facility] 10-04-2023 Do you have serious difficulty walking or climbing stairs No 10/04/2023 11:49 AM Hayley Parrish, PATRICIA No [facility] 10-04-2023 Do you have difficul ty dressing or bathing No 10/04/2023 11:49 AM Hayley Parrish, PATRICIA No [facility] 10-04-2023 Because of a physica l, mental, or emotional condition, do you have difficulty doing errands alone such as visiting a physician's office or shopping No 10/04/2023 11:49 AM Hayley Parrish, PATRICIA No [facility] 12-05-2022 Functional Status N/A [facility] 10-30-2022 Functional Status N/A [facility] 09-04-2022 Functional Status No [facility] 04-03-2022 Functional Status N/A [facility] Mental Status Date Assessment Result Facility 06-08-2024 Because of a physica l, mental, or emotional condition, do you have serious difficulty concentrating, remembering, or making decisions Yes 06/08/2024 3:04 PM EDT Markus Mccord, PATRICIA Yes [facility] 10-04-2023 Because of a physica l, mental, or emotional condition, do you have serious difficulty concentrating, remembering, or making decisions No 10/04/2023 11:49 AM EDT Hayley Vivas RN No [facility] Clinical Notes 05-07-2022 to 07-15-2024 Alfonso Loyd PA-C - 07/15/2024 9:04 AM EDTBAlfonso schwartz PA-C - 06/29/2024 9:18 AM EDTTelephone Encounter - Khushboo Mazariegos RN - 06/21/2024 8:30 AM Garcia Dorantes LPN - 06/16/2024 9:46 AM EDT Note Date & Type Note Facility 07-15-2024 Note [facility] 07-15-2024 History of Present illness Narrative Images from the original note were not included. SPINE SURGERY FOLLOW UP This is a virtual visit using [employer] Video Visit. It required patient-provider interaction for the medical decision making as documented below. I have communicated my name and active licensure. The patient's identity and physical location were verified at the time of this visit. Either the patient or their legal high school admissions representative has been informed of the risks and benefits of -- and alternatives to -- treatment through a remote evaluation and consents to proceed with the evaluation remotely. SERVICE DATE: 07/15/2024 SURGERY DATE: 06/02/24 Cervical laminoplasty Seen virtually for 6 week post operative check in. Since surgery he has been doing very well. He stopped wearing the C-collar last week and he's noticing improvements each day. Some aching in the neck but overall tolerable and improving. No new symptoms. No radiating pain. No numbness or weakness. He still feels somewhat off balance with walking but relates that more to his legs. Using Robaxin at bedtime and Tylenol/NSAIDs during the day PRN. Patient Entered Questionnaires 01/06/2024 05/07/2024 06/14/2024 Spine Questions Pain Location: Leg Leg Neck Pain Duration: 3-6 months Pain over last 6 months: At least half the days in the past 6 months Symptoms from neck/cervical spine: No No Yes Employment Status: Disabled for reasons other than back pain Disabled due to back pain, permanently or temporarily Off work 1 month or more due to back/neck pain: Yes Applied for/receive disability/WC due to low back/neck pain Yes Involved in law suit/legal claim: No 06/14/2024 Neck Questionnaires Benzel Modified CIRILO Score 15 (Mild Myelopathy Symptoms) PROMIS Score Percentiles 01/06/2024 05/07/2024 06/14/2024 Physical Health Physical Function Percentile 18* 5 0 Sleep Percentile 50 50 58 Fatigue Percentile 24* 16* 8 Pain Interference Percentile 18* 10 8 01/06/2024 05/07/2024 06/14/2024 PROMIS SOCIAL ROLE SCORE Social Role Satisfaction Percentile 12 8 5 07/30/2023 11/05/2023 05/07/2024 PROMIS Global Health Scale Physical Health Percentile 22* 4 22* Mental Health Percentile 19* 9 34 Patient-reported Percentiles provide an indication of how the patient's score ranks in relation to the general population. Higher percentile rankings indicate better function/quality of life. 50th percentile is the average of the general population and indicates half of respondents had a worse score. Depression Screenin11/05/2023 05/07/2024 06/14/2024 PHQ-9 Score 10 6 5 01/06/2024 05/07/2024 06/14/2024 PHQ-9 Self-harm Question Question 9 Not at [...] no vitals taken for this visit. Virtual DATA REVIEW [facility] records independently reviewed ASSESSMENT/PLAN No diagnosis found. Seen virtually for 6 week post operative appointment. He continues to do very well throughout the recovery process. He has noticed improvements with his neck pain since removing the c-collar last week. His X-Rays are stable and show a good alignment compared to his original post op. Incision fully healed without any complications. Discussed normal recovery goals and expectations. Reviewed plan of slowly increasing activity and lifting restrictions. Referral placed for PT. Mailed home. Continue to use Robaxin for pain control. He will call in a couple of weeks to let us know if he wants his next follow up to be virtual vs in person with Dr. Keith. The majority of the visit was spent counseling and/or coordinating care for the patient. Total face to face time was 20 minutes. SIGNATURE: Alfonso Loyd PA-C PATIENT NAME: Braden Rodriguez DATE: July 15, 2024 TIME: 9:13 AM PAGER: documented in this encounter [facility] 06-29-2024 Note [facility] 06-29-2024 History of Present illness Narrative Images from the original note were not included. SPINE SURGERY FOLLOW UP This is a virtual visit using [employer] Zoom Video Visit. It required patient-provider interaction for the medical decision making as documented below. I have communicated my name and active licensure. The patient's identity and physical location were verified at the time of this visit. Either the patient or their legal high school admissions representative has been informed of the risks and benefits of -- and alternatives to -- treatment through a remote evaluation and consents to proceed with the evaluation remotely. SERVICE DATE: 06/29/2024 SURGERY DATE: Braden is a 69-year-old male presenting for follow-up after recent surgery. Braden reports some improvement in pain control since his recent surgery. He is currently wearing a cervical collar. Arm pain has improved and overall pain has improved. He reports improvement in shooting pain in his arms and does not endorse any changes in numbness, dexterity, or balance. He experiences shoulder pain on both sides of the incision site, which he attributes to the healing process. He is taking oxycodone and muscle relaxers as prescribed but reduces the muscle relaxer dose during the day to avoid drowsiness, taking the full dose at night. He reports that the drowsiness is becoming less bothersome over time. He has an adequate supply of muscle relaxers and does not need refills. He continues to take Lasix and wear compression stockings to manage swelling from the knees down, which he experiences after every surgery. He does not report any new pain or redness in the calves. Sara were removed. Incision is healing well. Patient Entered Questionnaires 01/06/2024 05/07/2024 06/14/2024 Spine Questions Pain Location: Leg Leg Neck Pain Duration: 3-6 months Pain over last 6 months: At least half the days in the past 6 months Symptoms from neck/cervical spine: No No Yes Employment Status: Disabled for reasons other than back pain Disabled due to back pain, permanently or temporarily Off work 1 month or more due to back/neck pain: Yes Applied for/receive disability/WC due to low back/neck pain Yes Involved in law suit/legal claim: No 06/14/2024 Neck Questionnaires Benzel Modified CIRILO Score 15 (Mild Myelopathy Symptoms) PROMIS Score Percentiles 01/06/2024 05/07/2024 06/14/2024 Physical Health Physical Function Percentile 18* 5 0 Sleep Percentile 50 50 58 Fatigue Percentile 24* 16* 8 Pain Interference Percentile 18* 10 8 01/06/2024 05/07/2024 06/14/2024 PROMIS SOCIAL ROLE SCORE Social Role Satisfaction Percentile 12 8 5 07/30/2023 11/05/2023 05/07/2024 PROMIS Global Health Scale Physical Health Percentile 22* 4 22* Mental Health Percentile 19* 9 34 Patient-reported Percentiles provide an indication of how the patient's score ranks in relation to the general population. Higher percentile rankings indicate better function/quality of life. 50th percentile is the average of the general population and indicates half of respondents had a worse score. Descriptive Summary for PROMIS Physical Function T-score = 23 (Percentile 0) Unable - Do chores such as vacuuming or yard work. Much difficulty - Run errands and shop. Much difficulty - Walk about the house. 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 S/P cervical spinal fusion (Z98.1) - Post-operative status following cervical spinal fusion; patient currently in a cervical collar. - Ordered repeat cervical spine X-ray to assess alignment and healing; - If X-ray demonstrates appropriate alignment, will initiate weaning off cervical collar; advised to use collar during car rides and prolonged standing initially. - Advised against initiating physical therapy or strenuous activity until 6 weeks post-operatively; next evaluation scheduled for July 15 to assess readiness for increased activity and potential initiation of physical therapy. - Patient managing post-operative pain with oxycodone and muscle relaxants; taking full dose of muscle relaxants at night to minimize drowsiness during the day. - Monitoring for any changes in numbness, dexterity, or balance; no significant changes reported at this time. - Patient experiencing lower extremity edema, managed with Lasix and compression stockings; no signs of DVT. - Patient has follow-up with PCP for elevated troponin levels; advised to coordinate cardiology care with existing wig maker in [place] since he does not want to come to [facility]. The majority of the visit was spent counseling and/or coordinating care for the patient. Total face to face time was 30 minutes. SIGNATURE: Alfonso Loyd PA-C PATIENT NAME: Braden Rodriguez DATE: June 29, 2024 TIME: 9:20 AM PAGER: documented in this encounter [facility] 06-21-2024 Telephone encounter Note Neuro SPINE CARE COORDINATION QUICK NOTE Patient requesting oxycodone refill. Last filled: 06/15/24 Surgery: 06/02/24 F/U: 06/29/24 [facility] 06-21-2024 Miscellaneous Notes Neuro SPINE CARE COORDINATION QUICK NOTE Patient requesting oxycodone refill. Last filled: 06/15/24 Surgery: 06/02/24 F/U: 06/29/24 documented in this encounter [facility] 06-16-2024 Note [facility] 06-16-2024 History of Present illness Narrative Images from the original note were not included. Neuro SPINE CARE COORDINATION POST OP FOLLOW UP Verified name and date of with patient who is 14 days post C-LAMINOPLASTY W/GRAFT/PLATE . Presents today for removal of sara Pain is well controlled with pain meds Incisions is clean and dry (Picture Below) Ambulatory / Activity : walking well unassisted Additional patient concerns : None Follow up : 06/29/24 VV with Alfonso Loyd PA-C Additional Notes : The surgical incision is healing as expected, without complication or concern of infection. There is no evidence of dehiscence, redness, swelling, or drainage. The area was swabbed with Betadine. Patient tolerated well. Patient instructed on proper wound care and all questions answered. Patient will continue to monitor site for any red flags, and contact the office with any questions or concerns. Garcia Lomax LPN documented in this encounter [facility] 06-14-2024 Telephone encounter Note Had on 06/02/2024 SURGERY/PROCEDURE: 1. C4 through C6 instrumented laminoplasty. 2. Partial C3 laminectomy, dome laminectomy in inferior portion of C3, partial C7 laminectomy, dome laminectomy of the superior portion of C7. Spoke to patient states that he gets pain off to side of where his incision. His incision looks great. No redness or drainage. Pain level is a 6 today. Is taking the Tizanidine every 8 hours Taking Oxycodone 2 every 5 hours. [facility] 06-14-2024 Miscellaneous Notes Had on 06/02/2024 SURGERY/PROCEDURE: 1. C4 through C6 instrumented laminoplasty. 2. Partial C3 laminectomy, dome laminectomy in inferior portion of C3, partial C7 laminectomy, dome laminectomy of the superior portion of C7. Spoke to patient states that he gets pain off to side of where his incision. His incision looks great. No redness or drainage. Pain level is a 6 today. Is taking the Tizanidine every 8 hours Taking Oxycodone 2 every 5 hours. documented in this encounter [facility] 06-11-2024 Telephone encounter Note Neuro SPINE CARE COORDINATION POST OP FOLLOW UP Spoke to patient who is 9 days post C3, C7 dome laminectomy, C4-6 laminoplasty on 06/02. Pain is well controlled with Oxy 1.5 tabs every 4 hours, Tizanidine 1 tab BID, and Tylenol as needed Incision is clean, dry; sara; patient will schedule at for staple removal Ambulatory/Activity: walking well unassisted Additional patient concerns: none Follow up: VV with JUDY Bonus 06/29 Daily Plan of Care Visit during inpatient stay: no Plan of Care Visit helpful: n/a Additional Notes: Encouraged to call Dr. Keith's office if any questions/concerns prior to his follow up appointment Viridiana Luciano RN June 11, 2024 11:30 AM [facility] Work Phone: 06-11-2024 Miscellaneous Notes Neuro SPINE CARE COORDINATION POST OP FOLLOW UP Spoke to patient who is 9 days post C3, C7 dome laminectomy, C4-6 laminoplasty on 06/02. Pain is well controlled with Oxy 1.5 tabs every 4 hours, Tizanidine 1 tab BID, and Tylenol as needed Incision is clean, dry; sara; patient will schedule at for staple removal Ambulatory/Activity: walking well unassisted Additional patient concerns: none Follow up: VV with JUDY Karina 06/29 Daily Plan of Care Visit during inpatient stay: no Plan of Care Visit helpful: n/a Additional Notes: Encouraged to call Dr. Keith's office if any questions/concerns prior to his follow up appointment Viridiana Luciano RN June 11, 2024 11:30 AM documented in this encounter [facility] 06-10-2024 Telephone encounter Note Operations During Hospitalization: 06/02/2024: C3, C7 dome laminectomy, C4-6 laminoplasty [facility] 06-10-2024 Miscellaneous Notes Operations During Hospitalization: 06/02/2024: C3, C7 dome laminectomy, C4-6 laminoplasty documented in this encounter [facility] 06-09-2024 Telephone encounter Note Operations During Hospitalization: 06/02/2024: C3, C7 dome laminectomy, C4-6 laminoplasty Shared with RN team for review. [facility] 06-09-2024 Miscellaneous Notes Operations During Hospitalization: 06/02/2024: C3, C7 dome laminectomy, C4-6 laminoplasty Shared with RN team for review. documented in this encounter [facility] 06-08-2024 Note [facility] 06-08-2024 Note [facility] 06-08-2024 Note [facility] 06-07-2024 Note HNO ID: [id number] Author: MARKUS MCCORD RN Service: Nursing Author Type: Registered Nurse Type: Nursing Progress Note Filed: 06/07/2024 18:52 Note Text: Pt refusing telemetry. Mariel Oswaldlkarni notified. [facility] 06-07-2024 Note [facility] 06-07-2024 Note [facility] 06-06-2024 Note [facility] 06-05-2024 Note [facility] 06-04-2024 Note [facility] 06-03-2024 Note [facility] 06-03-2024 Note [facility] [facility] 06-03-2024 Note [facility] 06-03-2024 Note [facility] 06-03-2024 Note [facility] 06-02-2024 Note [facility] 06-02-2024 Note [facility] 06-02-2024 Note [facility] 06-02-2024 Note [facility] 05-17-2024 Note [facility] 05-17-2024 History of Present illness Narrative Patient referred to Blood Management for pre-surgical optimization. Hgb 14.9 which exceeds Blood Management guidelines for intervention. documented in this encounter [facility] 05-14-2024 History of Present illness Narrative Radiology Service Progress Note PATIENT NAME: Braden Rodriguez DATE OF SERVICE: May 14, 2024 TIME: 9:44 AM PATIENT IDENTITY VERIFICATION COMPLETED USING TWO (2) IDENTIFIERS: Name and Date of confirmed by patient verbally. FALL SCREENING: Has the patient had 2 falls in the last year or 1 fall with injury or currently using an Ambulatory Assistive Device (Walker, Cane, Wheelchair, Crutches, etc.)? No PATIENT GENDER DATA: Assigned male at PATIENT RELEVANT IMPLANT DATA REVIEWED: Not Applicable PATIENT PRESENTS WITH AN IMPLANTABLE OR ATTACHED PASSENGER BARGE MASTER: No RADIOLOGY DEPARTMENT: CT; Exam(s) Completed: CSP PERIPHERAL IV DATA: Not applicable SIGNED BY: DEON Sierra May 14, 2024 9:44 AM documented in this encounter [facility] 05-14-2024 Note HNO ID: [id number] Author: ZHANG RODRÍGUEZ CT Service: Radiology Author Type: Technologist Type: Progress Notes Filed: 05/14/2024 09:44 Note Text: Radiology Service Progress Note PATIENT NAME: Braden Rodriguez DATE OF SERVICE: May 14, 2024 TIME: 9:44 AM PATIENT IDENTITY VERIFICATION COMPLETED USING TWO (2) IDENTIFIERS: Name and Date of confirmed by patient verbally. FALL SCREENING: Has the patient had 2 falls in the last year or 1 fall with injury or currently using an Ambulatory Assistive Device (Walker, Cane, Wheelchair, Crutches, etc.)? No PATIENT GENDER DATA: Assigned male at PATIENT RELEVANT IMPLANT DATA REVIEWED: Not Applicable PATIENT PRESENTS WITH AN IMPLANTABLE OR ATTACHED PASSENGER BARGE MASTER: No RADIOLOGY DEPARTMENT: CT; Exam(s) Completed: CSP PERIPHERAL IV DATA: Not applicable SIGNED BY: DEON Sierra May 14, 2024 9:44 AM [facility] 05-12-2024 Note [facility] 05-12-2024 History of Present illness Narrative Images from the original note were not included. SPINE SURGERY ESTABLISHED VISIT This is an in-person visit. Staff note: Severe c spine stenosis Continues to have issues with gait (lumbar and c spine mediated? ) We discussed the minimum criteria for elective [...] is reasonable to proceed with: As above Laminoplasty The risks and benefits of surgery were discussed in very specific detail with the patient. Our discussion included but is not limited to the following: DVT, PE, and/or . Cardiovascular, pulmonary, or other visceral organ complication as discussed by her preoperative clearance team and/or anesthesia. I discussed the nature of the surgery the patient is undergoing. I discussed how a cervical spine surgery is different from a lumbar spine surgery in terms of being at spinal cord level. With this in mind, we discussed the risk of spinal cord injury. We discussed the risk of spinal cord injury from either positioning, maneuvering/reduction, contusion, or any other reason for spinal cord injury whether immediately evident or not evident during surgery. We discussed the clinical manifestations of a complete spinal cord injury resulting in tetraplegia, and depending upon the level either ventilator-dependent status or . We discussed that spinal cord injury may be incomplete and discussed the various manifestations of incomplete spinal cord injury. Vertebral artery injury was discussed, including a unilateral arterial injury that may result in excessive blood loss, and/or postoperative stroke, and the clinical manifestations of postoperative stroke were described. We discussed the risk of bilateral vertebral artery injury and that this may result in . We discussed the risk of pseudoarthrosis. We discussed the risk of C5 nerve root palsy and described the clinical entity of C5 nerve root palsy. We discussed hardware complications, such as hardware failure, screw breakage, jw breakage, hardware pullout, neurological injury resulting from hardware placement, and/or need for further surgery resulting from hardware complication or pseudoarthrosis or need for further surgery due to any other reason. We discussed the risk of adjacent segment breakdown whether clinically symptomatic or not, and the potential need for further surgery due to adjacent segment breakdown. We discussed myelopathy and the natural history of myelopathy in detail. We discussed that halting symptoms is more predictable than improving symptoms here, and we discussed how that pertained to the patient's particular clinical presentation. We discussed epidural hematoma, and potential for complete and/or partial spinal cord injury from a compressive epidural hematoma, and we discussed the various techniques use to mitigate this risk. We discussed the risk of infection, including superficial infection and/or deep infection that may or may not result in compressive epidural abscess and may or may not result in complete or incomplete spinal cord injury, and discussed the various techniques used to mitigate this risk. We discussed wound complications in the setting of posterior cervical surgery, we discussed long-term and/or permanent pain especially interscapular pain as related to posterior cervical surgery. We had a very lengthy discussion regarding these risks, positives and breaks were taken for the patient to absorb the information as well as to voiced their understanding of the information. The patient demonstrated excellent understanding of the risks, potential complications, and/or potential benefits of surgery. Appropriate time was given for the patient to ask questions. The patient's questions were all answered to their stated satisfaction. No guarantees were offered nor implied regarding final outcome and/or presence of or lack thereof complication as related to the surgery and/or perioperatively. The patient has elected to proceed with operative intervention Katherine Keith MD DATE OF SERVICE: 05/12/2024 DATE OF LAST VISIT: 01/13/2024 SUBJECTIVE: HPI:Braden Rodriguez is a 69 year old male presenting with spouse 8 and 7 months s/p L2-5 OLIF then right sided L4/5 facetectomy. Persistent bilateral foot drop with left starting to get slightly better. Has intermittent hand numbness, loss of dexterity and cramping, ongoing balance issues. Uses cane. MEDICATIONS: lidocaine (LIDODERM) 5 % Take as instructed on package acetaminophen (TYLENOL) 325 mg tablet 2 tablets by ORAL/FEEDING TUBE route every 6 hours as needed for pain. furosemide (LASIX) 40 mg tablet Take 40 mg by mouth once daily. tiZANidine (ZANAFLEX) 2 mg tablet Take 3 tablets by mouth every 8 hours. senna-docusate (SENNA-S) 8.6-50 mg per tablet Take 2 tablets by mouth two times a day. pregabalin (LYRICA) 50 mg capsule Take 1 capsule by mouth two times a day for 90 days. gabapentin (NEURONTIN) 300 mg capsule Take 1 capsule by mouth every 8 hours for 30 days. carvedilol (COREG) 25 mg tablet Take 1 tablet by mouth two times a day with meals. Patient Entered Questionnaires 11/05/2023 01/06/2024 05/07/2024 Spine Questions Pain Location: Leg Leg Leg Pain Duration: 1-3 months 3-6 months Pain over last 6 months: At least half the days in the past 6 months Symptoms from neck/cervical spine: No No No Employment Status: Disabled for reasons other than back pain Disabled due to back pain, permanently or temporarily Off work 1 month or more due to back/neck pain: Yes Applied for/receive disability/WC due to low back/neck pain Yes Involved in law suit/legal claim: No PROMIS Score Percentiles 11/05/2023 01/06/2024 05/07/2024 Physical Health Physical Function Percentile 2 18* 5 Sleep Percentile 27* 50 50 Fatigue Percentile 12 24* 16* Pain Interference Percentile 10 18* 10 11/05/2023 01/06/2024 05/07/2024 PROMIS SOCIAL ROLE SCORE Social Role Satisfaction Percentile 2 12 8 07/30/2023 11/05/2023 05/07/2024 PROMIS Global Health Scale Physical Health Percentile 22* 4 22* Mental Health Percentile 19* 9 34 Patient-reported Percentiles provide an indication of how the patient's score ranks in relation to the general population. Higher percentile rankings indicate better function/quality of life. 50th percentile is the average of the general population and indicates half of respondents had a worse score. Descriptive Summary for PROMIS Physical Function T-score = 34 (Percentile 5) Much difficulty - Carry a laundry basket up a flight of stairs. Some difficulty - Walk at a normal speed. Unable - Walk more than a mile (1.6 km). Depression Screenin09/23/2023 11/05/2023 05/07/2024 PHQ-9 Score 6 10 6 11/05/2023 01/06/2024 05/07/2024 PHQ-9 Self-harm Question Question 9 Not at all Not at all Not at all PHQ-9 Self-Harm (Item 9) response options: 0 Not at all 1 Several days 2 More than half the days 3 Nearly every day PHQ-9 Levels: 0-4 No to mild depression 5-9 Mild depression 10-14 Moderate depression 15-19 Moderately severe depression 20-27 Severe depression OBJECTIVE: PHYSICAL EXAM: GENERAL APPEARANCE: Well nourished, well developed, and no apparent distress. NEURO PSYCH: Patient oriented to person, place, and time. Mood pleasant. Benign affect. MOTOR: D, EF, EE, HG, Fabd 5 Full sensation BUE HF, KE, PF 5 EHL 2 on L, DF 0 EHL 0 on R, DF 0 Numbness in BLE on medial aspect of dorsum of foot No Babinski or AJ reflex BLE 3+ R KJ, 1+ L KJ No Marino, no clonus Wears bilateral AFOs ASSESSMENT/PLAN No diagnosis found. Braden Rodriguez presenting s/p L2-5 OLIF and R L4/5 facetectomy persistent bilateral foot drops left starting to get slightly better. Has balance and hand dexterity issues correlating with severe multilevel cervical stenosis on MRI. Will obtain Xrs and CT then discuss possible laminoplasty. SIGNATURE: Katherine Keith MD PATIENT NAME: Braden Rodriguez DATE: May 12, 2024 TIME: 12:22 PM PAGER: documented in this encounter [facility] 05-12-2024 Instructions Rhona Boss MD - 05/12/2024 8:53 AM EST Images from the original note were not included. [facility] PATIENT PREOPERATIVE INSTRUCTIONS Katherine Keith MD has scheduled you for your procedure at this surgery center: [facility] [place] Scheduling Office: [phone] --[address] [place] [address]. Please read below carefully for your personalized instructions. Dietary Restrictions: - You may have 12 ounces of clear liquids (water, clear juices such as apple juice or gatorade, carbonated beverages, clear tea, black coffee, jello) until 2 hours before scheduled arrival at facility. Medications: Unless instructed differently below, stay on all of your medications until your surgery. If you start any new medications after today's visit, please contact your surgeon. On the morning of surgery day take the following medicines: Carvedilol, Lyrica No outpatient medications have been marked as taking for the 05/12/24 encounter (PAT) with Rhona Boss MD. If you take any medications for erectile dysfunction-Cialis (Tadalafil), Levitra, Staxyn (Vardenafil) Viagra (Sildenenafil please do not take these for 48 hours before surgery. If you start any new medications after today's visit, please contact the surgeon's office. If you are currently using a cyoo-qzb-bpyi injectable or oral medication for diabetes or weight loss such as Dulaglutide (Trulicity), Exenatide (Byetta, Bydureon), Liraglutide (Victoza, Saxenda), Semaglutide (Ozempic, Wegovy, Rybelsus), or Tirzepatide (Mounjaro), the medicine should be stopped at least 7 days before surgery. These medicines can cause food to remain in your stomach for a very long time and increase the risks from surgery and anesthesia. Not stopping the medication for a long enough time may result in your surgery being rescheduled. Blood Thinning Medications: - Stop NSAIDS (Ibuprofen, Advil, Aleve, Motrin, Celebrex, Mobic, etc.) 7 days before surgery, as directed by your surgeon. - Do NOT stop aspirin or other anticoagulants without consulting with your wig maker or prescribing physician. - Stop ALL herbal and dietary supplements 7 days before surgery. - You may take Tylenol (Acetaminophen) or any of your pain medications that do not contain aspirin or NSAIDS as needed. Important Reminders: - If you use CPAP/BIPAP, bring the machine with you to the surgery center. - If you are prescribed inhalers for breathing, continue using them. If you are on dialysis, please check with your dialysis center or network relations consultant to see if any adjustments need to be made to your schedule for the week of your surgery - Candy, mints, and tobacco products are [...] money at home or with family members. - Please bring high-quality footwear, such as sneakers, to the hospital for ambulating post-surgery. For Outpatient Procedures: - YOU MUST HAVE A RESPONSIBLE OPTICS TECHNICAL OFFICER TAKE YOU HOME. A CASE MANAGER SPECIALIST OR CIGAR BANDER HAND CANNOT BE MADE A RESPONSIBLE OPTICS TECHNICAL OFFICER. - We recommend that a responsible person stays with you overnight to take care of you. - You cannot stay in a hotel alone after outpatient surgery. You will not be permitted to have your surgery, if you do not have someone to take care of you. Arrival Time for Surgery: - To obtain your arrival time for surgery, call your physician's office the day before your surgery. - If you have received different instructions about finding out your arrival time from your surgeon, please follow those instructions. - If your surgery is scheduled for Friday, call the Friday before. Your surgeon s monotype caster will tell you what time to call the office. - If you have not reached the departmental monotype caster by 5 P.M., call [phone] after 5 P.M. the day before your surgery. Please be aware that emergency situations arise, which may delay or change your surgical time. If this happens, we will notify you as soon as possible and regret any inconvenience. If you already have an Advance Directive, please fax a copy to [phone] or email to for it to be [...] and scanned into your chart that day. Rhona Boss MD documented in this encounter [facility] 05-12-2024 History and physical note Images from the original note were not included. [facility] HISTORY AND PHYSICAL EXAMINATION SERVICE DATE: 05/12/2024 SERVICE TIME: 8:38 AM PRIMARY CARE PHYSICIAN: Ester Cain MD Assessment Patient has the following medical conditions which may affect farzaneh-operative course: Braden Rodriguez is a 69 year old right male with PMH of HTN, SVT, s/p L2-5 OLIF on 08/31 and L4-5 right sided facetectomy on 09/[address] Keith. Patient walks with a cane and wears ankle braces due to feet drop. He is not on gabapentin anymore, he takes Lyrica. Primary hypertension - is on carvedilol 12.5 bid ( has not taken it yet today) H/o SVT (supraventricular tachycardia) (HCC) -Stable on carvedilol ANESTHESIA FINDINGS: Intubation History: No history of difficult intubation Significant Anesthesia Considerations: none Airway History: No history of difficult airway Rivas Activity Status Index: METS: Walk indoors, such as around the house (1.75 METs) Do light work around the house, such as dusting or washing dishes (2.70 METs) Take care of self; that is eating, dressing, bathing, using the toilet (2.75 METs) Walk a block or two on level ground (2.75 METs) Do moderate work around the house, such as vacuuming, sweeping floors, or carrying in groceries (3.50 METs) Climb a flight of stairs or walk up a hill (5.50 METs) Participate in moderate recreational activites, such as golf, bowling, dancing, doubles tennis, or throwing a baseball or football (6.00 METs) DASI Score: 24.95 I - PHYSICAL EVALUATION AIRWAY Patient intubated: No. Tracheostomy tube not present Mallampati: III. TM distance: >3 FB. Neck ROM: full ROM without neurological symptoms. Mouth opening: adequate. Short neck: no. Thick neck: no II - ANESTHESIA PLAN Beta Janak Monitoring Plan Post Procedure Analgesic Plan Prepared for Surgery: optimally prepared for surgery, pending [see comment]. labs CONSULTS: Planned Anesthetic: The Following Tests/Procedures Have Been Initiated: Orders Placed This Encounter BMP Standing Status: Future Expected Date: 05/12/2024 Expiration Date: 08/11/2024 Type and Screen, 30 day Standing Status: Future Expected Date: 05/12/2024 Expiration Date: 08/11/2024 [facility] Surgery or Procedure:: [facility] [place] Status of surgery/procedure:: Scheduled Date of surgery/procedure:: 06/02/2024 REASON FOR VISIT: Braden Rodriguez is a 69 year old male who is scheduled for Procedure(s): CERVICAL LAMINOPLASTY WITH DECOMPRESSION 2 OR MORE SEGMENTS (N/A) C-LAMINOPLASTY W/GRAFT/PLATE (N/A) at the request of Katherine Hogue MD for consultation. My final recommendation will be communicated back to the requesting physician by way of shared medical record or letter. Subjective The patient has the following: COVID-19 Immunization Status Current Care Gaps Covid-19 Vaccine ( season) Overdue since 11/09/2023 12/29/2020 Imm Admin: COVID-19 original vaccine, age 12+ yr, monovalent (PFIZER-BIONTECH - PURPLE TOP) 06/09/2020 Imm Admin: COVID-19 original vaccine, age 12+ yr, monovalent (PFIZER-BIONTECH - PURPLE TOP) 05/19/2020 Imm Admin: COVID-19 original vaccine, age 12+ yr, monovalent (PFIZER-BIONTECH - PURPLE TOP) Only the first 3 history entries have been loaded, but more history exists. CHIEF COMPLAINT: HPI: Braden Rodriguez is a 69 year old right male with PMH of HTN, SVT, s/p L2-5 OLIF on 08/31 and L4-5 right sided facetectomy on 09/[address] Keith. REVIEW OF SYSTEMS: General: No weight loss, malaise or fevers. Neurological: No history of TIA's, stroke, LUNCHEONETTE OPERATOR tumor, impaired sensorium, hemiplegia, paraplegia or quadraplegia. No neurological symptoms or problems. Respiratory: No history of current cough or dyspnea, or pneumonia in the past 6 weeks. No history of respiratory/pulmonary symptoms or problems. Cardiovascular: Positive for: hypertension GI: No history of GI symptoms or problems. No history of esophageal varices, recent ascites, or ETOH greater than 2 drinks per day. : No history of dysuria, frequency or incontinence, stones or chronic kidney disease. No difficulty urinating, nocturia > 1 time per night or hematuria. Endocrine: No history of diabetes. Has not taken steroids within the past 30 days. No history of endocrinological symptoms or problems. Hematology: No history of bleeding or clotting disorder. Patient is not taking anti-coagulation or platelet medications. No history of hematological symptoms or problems. Oncology: No history of CA metastasis, chemo within 30 days, or radiotherapy within 90 days. No history of oncological symptoms or problems. Psych: No history of psychiatric symptoms or problems. Musculoskeletal: Negative for joint pain or swelling, back pain or muscle pain. Skin: Negative for lesions, rash and itching. PAST MEDICAL HISTORY Diagnosis Date Benign neoplasm [...] Topics Alcohol use: Never Drug use: Never Prior to Admission medications as of 01/13/24 1317 Medication Sig Last Dose Taking pregabalin (LYRICA) 50 mg capsule Take 1 capsule by mouth two times a day for 90 days. gabapentin (NEURONTIN) 300 mg capsule Take 1 capsule by mouth every 8 hours for 30 days. lidocaine (LIDODERM) 5 % Take as instructed on package acetaminophen (TYLENOL) 325 mg tablet 2 tablets by ORAL/FEEDING TUBE route every 6 hours as needed for pain. carvedilol (COREG) 25 mg tablet Take 1 tablet by mouth two times a day with meals. furosemide (LASIX) 40 mg tablet Take 40 mg by mouth once daily. Patient not taking: Reported on 01/13/2024 tiZANidine (ZANAFLEX) 2 mg tablet Take 3 tablets by mouth every 8 hours. senna-docusate (SENNA-S) 8.6-50 mg per tablet Take 2 tablets by mouth two times a day. No medication comments found. ALLERGIES Allergen Reactions Penicillins Rash Robaxin [Methocarba* Intolerance Objective PHYSICAL EXAM: General: alert and oriented. Skin: normal color, no rash or lesions. HEENT: EOM intact. Cardiovascular: regular rate and rhythm, normal S1 and S2, no rub, murmurs, or gallop. Respiratory: normal breath sounds, no wheezes or crackles. Abdomen: bowel sounds present and soft. Pertinent negatives noted - not tender. Extremities: no deformity, no edema or tenderness, no joint swelling or clubbing. Neurological: normal cognition and motor skills. PAIN ASSESSMENT: Pain Pain Level: 2 Pain Location: (Patient-Rptd) Ankle-Left Description: (Patient-Rptd) Aching, Cramping, Numbness, Stiffness Duration Amount of Time: (Patient-Rptd) 2 Duration Units: (Patient-Rptd) Months Frequency: (Patient-Rptd) Continuous Intervention/Comfort measure: (Patient-Rptd) Medication, Relaxation, Cold, Heat VITALS: BP 157/73 Pulse 67 Temp (Src) 97 (Temporal) Ht 6' 0 (1.83m) Wt 212 lb 4.9 oz (96.3kg) SpO2 100% BMI 28.79 kg/(m^2). Diagnostic tests reviewed for today's visit: Lab Value Units Date High Low HB No results within date range. HCT No results within date range. WBC No results within date range. PLT No results within date range. NA No results within date range. K No results within date range. GLUC No results within date range. BUN No results within date range. CREAT No results within date range. PTSEC No results within date range. INR [...] date range. No results found for: HBA1C Recent Results (from the past 8760 hours) ECG COMPLETE Collection Time: 09/07/23 9:35 PM Result Value Ventricular Rate 63 Atrial Rate 63 P-R Interval 120 QRS Duration 82 QT Interval 402 QTC Calculation (Bazett) 411 Calculated P [place] 59 Calculated R [place] 48 Calculated T [place] 72 Impression NORMAL SINUS RHYTHM POSSIBLE LEFT ATRIAL ENLARGEMENT BORDERLINE ECG No results found for this or any previous visit (from the past 99032 hours). Instructions Given to Patient: Instructions located in the after visit summary. Patient given verbal and written preop instructions and voices comprehension and compliance. SIGNATURE: Rhona Boss MD PATIENT NAME: Braden Rodriguez DATE: May 12, 2024 TIME: 8:38 AM PAGER/CONTACT #: [facility] 05-12-2024 History and physical note Images from the original note were not included. [facility] HISTORY AND PHYSICAL EXAMINATION SERVICE DATE: 05/12/2024 SERVICE TIME: 8:38 AM PRIMARY CARE PHYSICIAN: Ester Cain MD Assessment Patient has the following medical conditions which may affect farzaneh-operative course: Braden Rodriguez is a 69 year old right male with PMH of HTN, SVT, s/p L2-5 OLIF on 08/31 and L4-5 right sided facetectomy on 09/[address] Keith. Patient walks with a cane and wears ankle braces due to feet drop. He is not on gabapentin anymore, he takes Lyrica. Primary hypertension - is on carvedilol 12.5 bid ( has not taken it yet today) H/o SVT (supraventricular tachycardia) (HCC) -Stable on carvedilol ANESTHESIA FINDINGS: Intubation History: No history of difficult intubation Significant Anesthesia Considerations: none Airway History: No history of difficult airway Rivas Activity Status Index: METS: Walk indoors, such as around the house (1.75 METs) Do light work around the house, such as dusting or washing dishes (2.70 METs) Take care of self; that is eating, dressing, bathing, using the toilet (2.75 METs) Walk a block or two on level ground (2.75 METs) Do moderate work around the house, such as vacuuming, sweeping floors, or carrying in groceries (3.50 METs) Climb a flight of stairs or walk up a hill (5.50 METs) Participate in moderate recreational activites, such as golf, bowling, dancing, doubles tennis, or throwing a baseball or football (6.00 METs) DASI Score: 24.95 I - PHYSICAL EVALUATION AIRWAY Patient intubated: No. Tracheostomy tube not present Mallampati: III. TM distance: >3 FB. Neck ROM: full ROM without neurological symptoms. Mouth opening: adequate. Short neck: no. Thick neck: no II - ANESTHESIA PLAN Beta Janak Monitoring Plan Post Procedure Analgesic Plan Prepared for Surgery: optimally prepared for surgery, pending [see comment]. labs CONSULTS: Planned Anesthetic: The Following Tests/Procedures Have Been Initiated: Orders Placed This Encounter BMP Standing Status: Future Expected Date: 05/12/2024 Expiration Date: 08/11/2024 Type and Screen, 30 day Standing Status: Future Expected Date: 05/12/2024 Expiration Date: 08/11/2024 Hospital of Planned Surgery or Procedure:: [facility] [place] Status of surgery/procedure:: Scheduled Date of surgery/procedure:: 06/02/2024 REASON FOR VISIT: Braden Rodriguez is a 69 year old male who is scheduled for Procedure(s): CERVICAL LAMINOPLASTY WITH DECOMPRESSION 2 OR MORE SEGMENTS (N/A) C-LAMINOPLASTY W/GRAFT/PLATE (N/A) at the request of Katherine Hogue MD for consultation. My final recommendation will be communicated back to the requesting physician by way of shared medical record or letter. Subjective The patient has the following: COVID-19 Immunization Status Current Care Gaps Covid-19 Vaccine () Overdue since 11/09/2023 12/29/2020 Imm Admin: COVID-19 original vaccine, age 12+ yr, monovalent (PFIZER-BIONTECH - PURPLE TOP) 06/09/2020 Imm Admin: COVID-19 original vaccine, age 12+ yr, monovalent (PFIZER-BIONTECH - PURPLE TOP) 05/19/2020 Imm Admin: COVID-19 original vaccine, age 12+ yr, monovalent (PFIZER-BIONTECH - PURPLE TOP) Only the first 3 history entries have been loaded, but more history exists. CHIEF COMPLAINT: HPI: Braden Rodriguez is a 69 year old right male with PMH of HTN, SVT, s/p L2-5 OLIF on 08/31 and L4-5 right sided facetectomy on 09/[address] Keith. REVIEW OF SYSTEMS: General: No weight loss, malaise or fevers. Neurological: No history of TIA's, stroke, LUNCHEONETTE OPERATOR tumor, impaired sensorium, hemiplegia, paraplegia or quadraplegia. No neurological symptoms or problems. Respiratory: No history of current cough or dyspnea, or pneumonia in the past 6 weeks. No history of respiratory/pulmonary symptoms or problems. Cardiovascular: Positive for: hypertension GI: No history of GI symptoms or problems. No history of esophageal varices, recent ascites, or ETOH greater than 2 drinks per day. : No history of dysuria, frequency or incontinence, stones or chronic kidney disease. No difficulty urinating, nocturia > 1 time per night or hematuria. Endocrine: No history of diabetes. Has not taken steroids within the past 30 days. No history of endocrinological symptoms or problems. Hematology: No history of bleeding or clotting disorder. Patient is not taking anti-coagulation or platelet medications. No history of hematological symptoms or problems. Oncology: No history of CA metastasis, chemo within 30 days, or radiotherapy within 90 days. No history of oncological symptoms or problems. Psych: No history of psychiatric symptoms or problems. Musculoskeletal: Negative for joint pain or swelling, back pain or muscle pain. Skin: Negative for lesions, rash and itching. PAST MEDICAL HISTORY Diagnosis Date Benign neoplasm [...] Topics Alcohol use: Never Drug use: Never Prior to Admission medications as of 01/13/24 1317 Medication Sig Last Dose Taking pregabalin (LYRICA) 50 mg capsule Take 1 capsule by mouth two times a day for 90 days. gabapentin (NEURONTIN) 300 mg capsule Take 1 capsule by mouth every 8 hours for 30 days. lidocaine (LIDODERM) 5 % Take as instructed on package acetaminophen (TYLENOL) 325 mg tablet 2 tablets by ORAL/FEEDING TUBE route every 6 hours as needed for pain. carvedilol (COREG) 25 mg tablet Take 1 tablet by mouth two times a day with meals. furosemide (LASIX) 40 mg tablet Take 40 mg by mouth once daily. Patient not taking: Reported on 01/13/2024 tiZANidine (ZANAFLEX) 2 mg tablet Take 3 tablets by mouth every 8 hours. senna-docusate (SENNA-S) 8.6-50 mg per tablet Take 2 tablets by mouth two times a day. No medication comments found. ALLERGIES Allergen Reactions Penicillins Rash Robaxin [Methocarba* Intolerance Objective PHYSICAL EXAM: General: alert and oriented. Skin: normal color, no rash or lesions. HEENT: EOM intact. Cardiovascular: regular rate and rhythm, normal S1 and S2, no rub, murmurs, or gallop. Respiratory: normal breath sounds, no wheezes or crackles. Abdomen: bowel sounds present and soft. Pertinent negatives noted - not tender. Extremities: no deformity, no edema or tenderness, no joint swelling or clubbing. Neurological: normal cognition and motor skills. PAIN ASSESSMENT: Pain Pain Level: 2 Pain Location: (Patient-Rptd) Ankle-Left Description: (Patient-Rptd) Aching, Cramping, Numbness, Stiffness Duration Amount of Time: (Patient-Rptd) 2 Duration Units: (Patient-Rptd) Months Frequency: (Patient-Rptd) Continuous Intervention/Comfort measure: (Patient-Rptd) Medication, Relaxation, Cold, Heat VITALS: BP 157/73 Pulse 67 Temp (Src) 97 (Temporal) Ht 6' 0 (1.83m) Wt 212 lb 4.9 oz (96.3kg) SpO2 100% BMI 28.79 kg/(m^2). Diagnostic tests reviewed for today's visit: Lab Value Units Date High Low HB No results within date range. HCT No results within date range. WBC No results within date range. PLT No results within date range. NA No results within date range. K No results within date range. GLUC No results within date range. BUN No results within date range. CREAT No results within date range. PTSEC No results within date range. INR [...] date range. No results found for: HBA1C Recent Results (from the past 8760 hours) ECG COMPLETE Collection Time: 09/07/23 9:35 PM Result Value Ventricular Rate 63 Atrial Rate 63 P-R Interval 120 QRS Duration 82 QT Interval 402 QTC Calculation (Bazett) 411 Calculated P [place] 59 Calculated R [place] 48 Calculated T [place] 72 Impression NORMAL SINUS RHYTHM POSSIBLE LEFT ATRIAL ENLARGEMENT BORDERLINE ECG No results found for this or any previous visit (from the past 87175 hours). Instructions Given to Patient: Instructions located in the after visit summary. Patient given verbal and written preop instructions and voices comprehension and compliance. SIGNATURE: Rhona Boss MD PATIENT NAME: Braden Rodriguez DATE: May 12, 2024 TIME: 8:38 AM PAGER/CONTACT #: documented in this encounter [facility] 05-05-2024 Note [facility] 05-05-2024 History of Present illness Narrative Virtual visit: I have communicated my name and active licensure. The patient's identity and physical location were verified at the time of this visit. Either the patient or their legal high school admissions representative has been informed of the risks and benefits of -- and alternatives to -- treatment through a remote evaluation and consents to proceed with the evaluation remotely. 10 minutes Follow up virtual visit. Last seen 01/12/25 and we decided to continuing to monitor his right foot drop which persisted. His left foot was starting to make some progress. 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 He feels like his walking is starting to get worse again. He feels like his foot drop is continuing to impact his balance and stability. He denies any numbness in the hands or declining dexterity. He denies any severe pain. Some neck pain when he's driving or has his arms extended forward. Cervical MRI was completed after the examination of patient and review of t spine mri Cervical MRI shows severe central stenosis with SC compression. We discussed cervical myelopathy, surgical intervention, red flags and goals in great detail. 1. Cervical laminoplasty Katherine Keith MD documented in this encounter [facility] 02-21-2024 History of Present illness Narrative Radiology Service Progress Note PATIENT NAME: Braden Rodriguez DATE OF SERVICE: February 21, 2024 TIME: 4:25 PM PATIENT IDENTITY VERIFICATION COMPLETED USING TWO (2) IDENTIFIERS: Name and Date of confirmed by identification band and Name and Date of obtained from a relative, guardian or prior caregiver.. FALL SCREENING: Has the patient had 2 falls in the last year or 1 fall with injury or currently using an Ambulatory Assistive Device (Walker, Cane, Wheelchair, Crutches, etc.)? No PATIENT GENDER DATA: Male PATIENT RELEVANT IMPLANT DATA REVIEWED: Yes PATIENT PRESENTS WITH AN IMPLANTABLE OR ATTACHED PASSENGER BARGE MASTER: No RADIOLOGY DEPARTMENT: MR; Exam(s) Completed: Spine: Cervical spine PERIPHERAL IV DATA: Not applicable SIGNED BY: RT Lydia(R) February 21, 2024 4:25 PM documented in this encounter [facility] 02-21-2024 Note [facility] 02-03-2024 Telephone encounter Note Attempted to contact patient regarding Cervical MRI that was ordered Left detailed message on patient identified voicemail. Number to schedule provided. [facility] 02-03-2024 Miscellaneous Notes Attempted to contact patient regarding Cervical MRI that was ordered Left detailed message on patient identified voicemail. Number to schedule provided. documented in this encounter [facility] 01-13-2024 Note [facility] 01-13-2024 History of Present illness Narrative Images from the original note were not included. Spine SURGERY CLINIC FOLLOW UP NOTE Encounter Date: 01/13/2024 Staff note: Patient seen and examined independently, Right foot drop persists , LEFT foot is starting to make improvements, MRI shows adequate decompression per my read, CT with facetectomy on the right EMG equivocal, radiculopathy vs neuropathy I would like to see some more improvement, OK for gym and golf Follow closely, ok for virtual, 3 month FU I had a long discussion with the patient in the office today, they had many appropriate questions, all were answered to their satisfaction, no guarantees were offer nor implied in our discussion. Katherine Keith MD Chief complaint: Bilateral foot drop History of present illness: Braden Rodriguez is a 68 year old right handed male who returns to clinic today s/p L2-5 OLIF on 08/31 and L4-5 right sided facetectomy on 09/[address] Keith. Braden Rodriguez was last seen on 11/12/23 at which time plan was to obtain CT L spine, MRI T,L spine, and EMG BLLE. Braden Rodriguez reports he is still experiencing bilateral lower extremity foot drop. He reports his RLE radicular pain has improved since surgery. He continues to attend PT sessions. He presents today wearing semi-rigid AFOs. Past Medical History PAST MEDICAL HISTORY Diagnosis Date Benign neoplasm of skin, site unspecified 08/2008 right anterior shoulder; Inflamed seborrheic keratosis 08/2008 left anterior axillary line Past Surgical History PAST SURGICAL HISTORY Procedure Laterality Date PAST SURGICAL HISTORY OF 2019 lumbar surgeries x 3 REMOVAL GALLBLADDER REPAIR INCISIONAL HERNIA,REDUCIBLE Social History Social History Tobacco Use Smoking status: Never Smokeless tobacco: Former Types: Chew Quit date: 1999 Substance Use Topics Alcohol use: Never Drug use: Never Family History Not contributory to consult. Review of Systems Per HPI Physical Exam BP 136/68 Pulse 84 Ht 182.9 cm (6') Wt 93 kg (205 lb) BMI 27.80 kg/m A&Ox3, NAD Breathing comfortably at rest RRR to peripheral palpation Focused Musculoskeletal Exam Spine Exam There was no gross deformity of the spine or obvious scoliosis Active range of motion of the neck normal with full flexion, extension, left and right rotation, left and right lateral bending Sensation to light touch: Upper Extremities Right Left Lateral arm (C5) present present Radial forearm, thumb (C6) present present Long finger (C7) present present Small finger (C8) present present Ulnar forearm (T1) present present Lower Extremities Medial upper thigh (L2) present present Medial knee (L3) present present Medial distal tibia (L4) reduced reduced Dorsum of first MTP (L5) reduced reduced Lateral heel (S1) reduced reduced Motor function: Upper Extremities Right Left Shoulder abduction (C5) 5/5 5/5 Elbow flexion (C6) 5/5 5/5 Elbow extension (C7) 5/5 5/5 Finger flexion (C8) 5/5 5/5 Finger abduction (T1) 5/5 5/5 Lower Extremities Hip flexion (L2) 5/5 5/5 Knee extension (L3) 5/5 5/5 Ankle dorsiflexion (L4) 1/5 1/5 Great toe extension (L5) 1/5 3/5 Ankle plantarflexion (S1) 5/5 5/5 Long tract signs: Upper Extremities Right Left Spasticity Absent Absent Co-contraction Absent Absent Marino's sign Absent Absent Lower Extremities Spasticity Absent Absent Babinski Downgoing Downgoing Clonus Absent Absent Rectal tone: deferred INVESTIGATIONS Imaging Studies MRI: T/L spine preliminary read from today: Susceptibility artifacts from posterior fusion hardware at L2 L5 and interbody spacers at L2-L3 through L4-L5. Refer to concurrent CT lumbar spine for detailed evaluation of the fusion hardware. * Postsurgical changes from prior laminectomies between L2-L3 and L4-L5. In comparison to prior MRI lumbar spine 09/10/2023, interval fluid collection at the L4 laminectomy site on the right likely secondary to postoperative seroma versus pseudomeningocele. Differential also includes abscess formation, although thought to be less likely. Correlate clinically. Fluid sampling might be obtained if clinically appropriate. * No high-grade spinal canal stenosis. Varying degrees of foraminal narrowing as above including severe right foraminal stenosis at L4-L5 . * Degenerative changes through the cervical spine such as at C5-C6 at least moderate spinal canal stenosis. Further imaging with dedicated nonurgent MRI cervical spine might be obtained if clinically deemed appropriate. CT scan from today: Interval L4-5 right facetectomy. Stable additional prior postoperative changes as described. Healing fracture along L5 pedicle screws. 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 Assessment/Plan ASSESSMENT Mr. Rodriguez is a 68 year old male who returns to clinic today s/p L2-5 OLIF on 08/31 and L4-5 right sided facetectomy on 09/[address] Keith. Patient continues to have bilateral foot drop. We discussed that given patient is 3 months post surgery, he will continue to recover from the surgery. PLAN Would like to continue following patient Plan for in person or virtual follow up in 3 months OK to discontinue physical therapy per patient's wishes Sampson Christopher MD (AJ) documented in this encounter [facility] 01-13-2024 Note [facility] 01-13-2024 History of Present illness Narrative UNIVERSAL PROTOCOL / SAFETY CHECKLIST Procedure to [...] Plan of Care Visit completed when applicable. Mis Grimes, electronic warfare specialist Brian Mckeon MD documented in this encounter [facility] 01-13-2024 History of Present illness Narrative Radiology Service Progress Note PATIENT NAME: Braden Rodriguez DATE OF SERVICE: January 13, 2024 TIME: 7:51 AM PATIENT IDENTITY VERIFICATION COMPLETED USING TWO [...] PATIENT PRESENTS WITH AN IMPLANTABLE OR ATTACHED PASSENGER BARGE MASTER: No RADIOLOGY DEPARTMENT: MR; Exam(s) Completed: Spine: Thoracic spine and Lumbar spine PERIPHERAL IV DATA: Not applicable SIGNED BY: RT Blossom(R) January 13, 2024 7:51 AM documented in this encounter [facility] 01-13-2024 Note [facility] 01-13-2024 History of Present illness Narrative Radiology Service Progress Note PATIENT NAME: Braden Rodriguez DATE OF SERVICE: January 13, 2024 TIME: 8:52 AM PATIENT IDENTITY VERIFICATION COMPLETED USING TWO [...] PATIENT PRESENTS WITH AN IMPLANTABLE OR ATTACHED PASSENGER BARGE MASTER: No RADIOLOGY DEPARTMENT: CT; Exam(s) Completed: Spine PERIPHERAL IV DATA: Not applicable SIGNED BY: RT Cj(R) January 13, 2024 8:52 AM documented in this encounter [facility] 01-13-2024 Note [facility] 12-05-2023 Telephone encounter Note Called patient to follow up after steroid taper. No answer. Left message to return call to the office. [facility] 12-05-2023 Miscellaneous Notes Called patient to follow up after steroid taper. No answer. Left message to return call to the office. documented in this encounter [facility] 11-13-2023 Note Addended by: ALFONSO LOYD on: 11/13/2023 04:25 PM Modules accepted: Orders [facility] 11-13-2023 Miscellaneous Notes Addended by: ALFONSO LODY on: 11/13/2023 04:25 PM Modules accepted: Orders documented in this encounter [facility] 11-12-2023 Note [facility] 11-12-2023 History of Present illness Narrative [...] above Meenakshi Morin MD Spine Surgery Fellow [phone] [facility] [place]: [id number] ([id number]) [facility]: [id number] I reviewed the information obtained and documented by the fellow. I examined the patient and evaluated all available films and pertinent documents. We discussed the case and I agree with the plans as outlined in this note. SIGNATURE: Katherine Keith MD PATIENT NAME: Braden Rodriguez DATE: November 12, 2023 TIME: 2:47 PM PAGER: documented in this encounter [facility] 11-12-2023 History of Present illness Narrative Radiology [...] PATIENT PRESENTS WITH AN IMPLANTABLE OR ATTACHED PASSENGER BARGE MASTER: No RADIOLOGY DEPARTMENT: General X-ray: Exam(s) Completed: Spine X-Ray(s): Lumbar AP / LAT / L5-S1 PERIPHERAL IV DATA: Not applicable SIGNED BY: RT Guillermo(Michael) November 12, 2023 1:13 PM documented in this encounter [facility] 11-12-2023 Note [facility] 11-11-2023 Telephone encounter Note Patient returned call and was transferred to RN Discussed we will not be able to refill the narcotic until tomorrow, and will review in office tomorrow. Patient also has questions and concerns for the nerve pain and right foot drop that has persisted. No further questions, he voiced appreciation for the call [facility] 11-11-2023 Miscellaneous Notes Patient returned call and [...] to the office. documented in this encounter [facility] 11-11-2023 Telephone encounter Note Attempted to contact patient to discuss his my chart message and medication refill request. Left message to return call to the office. [facility] 11-11-2023 Note General Surgery Offi ce/Clinic Note [...] mg= 1 cap( (more content not included)... [facility] Comment on above: Result Comment: Elec tronically Signed By: VAMSI JERNIGAN, Camryn Rodriguez\.ju\Date and Time Signed: 11/11/23 14:24 EDT 11-05-2023 Telephone encounter Note Prior auth completed, awaiting approval [facility] 11-05-2023 Miscellaneous Notes Prior auth completed, awaiting approval [facility] called re Rx Refill, needs a Pre-auth because insurance only cover 2 refills. Pls do the pre-auth through: covermymeds. The gibbons: [id number] (low/upper is ok). Pls let [facility] know once it's approved by call [phone] documented in this encounter [facility] 11-05-2023 Telephone encounter Note Prior auth completed [id number] [facility] 11-05-2023 Miscellaneous Notes Prior auth completed [id number] Received a fax from Cover My Meds requesting a prior authorization for: Hydrocodone-Acetaminophen 5-325 MG Tablets Cover My Meds Gibbons: [id number] Pharmacy: [id number] Fax scanned in to pt's chart for our records. documented in this encounter [facility] 11-05-2023 Telephone encounter Note Received a fax from Cover My Med[employer] requesting a prior authorization for: Hydrocodone-Acetaminophen 5-325 MG Tablets Cover My Meds Gibbons: [id number] Pharmacy: [id number] Fax scanned in to pt's chart for our records. [facility] 11-05-2023 Telephone encounter Note [facility] called re Rx Refill, needs a Pre-auth because insurance only cover 2 refills. Pls do the pre-auth through: covermymeds. The gibbons: [id number] (low/upper is ok). Pls let [facility] know once it's approved by call [phone] [facility] 10-23-2023 Note Addended by: ALFONSO LOYD on: 10/23/2023 11:22 AM Modules accepted: Orders [facility] 10-23-2023 Miscellaneous Notes Addended by: ALFONSO LOYD on: 10/23/2023 11:22 AM Modules accepted: Orders Called [facility] pharmacy and confirmed they do not have the [place] available. Pharmacist cancelled order. Will update JUDY to send to new pharmacy listed. documented in this encounter [facility] 10-23-2023 Telephone encounter Note Called [facility] pharmacy and confirmed they do not have the [place] available. Pharmacist cancelled order. Will update JUDY to send to new pharmacy listed. [facility] 10-21-2023 Note [facility] 10-21-2023 History of Present illness Narrative SPINE SURGERY FOLLOW UP This is a virtual visit using [employer] Video Visit. It required patient-provider interaction for the medical decision making as documented below. I have communicated my name and active licensure. The patient's identity and physical location were verified at the time of this visit. Either the patient or their legal high school admissions representative has been informed of the risks [...] 8:40 AM PAGER: documented in this encounter [facility] 10-16-2023 Telephone encounter Note Noted medication update. No Issue for change from surgical standpoint. [facility] 10-16-2023 Miscellaneous Notes Noted medication update. No Issue for change from surgical standpoint. Naye from Dr. Ester Cain's office called. Pt was seen yesterday complaining of the side effect from Gabapentin and the doctor change the medication to Lyrica 50 mg. documented in this encounter [facility] 10-16-2023 Telephone encounter Note Naye from Dr. Ester Cain's office called. Pt was seen yesterday complaining of the side effect from Gabapentin and the doctor change the medication to Lyrica 50 mg. [facility] Work Phone: 10-09-2023 Note Addended by: ALFONSO LOYD on: 10/09/2023 03:44 PM Modules accepted: Orders [facility] 10-09-2023 Miscellaneous Notes Addended by: ALFONSO LOYD on: 10/09/2023 03:44 PM Modules accepted: Orders documented in this encounter [facility] 10-04-2023 Note [facility] 10-04-2023 Note [facility] 10-04-2023 Note [facility] 10-03-2023 Note [facility] 10-03-2023 Note [facility] 10-02-2023 Note [facility] 10-02-2023 Note [facility] 09-30-2023 Telephone encounter Note Summary: Research [...] him/her luck with the upcoming procedure. Signed, Aaron Garcia Medical Student Visiting Researcher OUTCOMES RESEARCH MAIN [facility] 09-30-2023 Miscellaneous Notes Summary: Research Interest: POUR [...] wished him/her luck with the upcoming procedure. Aaron Levy Medical Student Visiting Researcher OUTCOMES RESEARCH MAIN documented in this encounter [facility] 09-30-2023 Note [facility] 09-30-2023 History of Present illness Narrative Neuro SPINE CARE COORDINATION PRE-OP VISIT Met with patient via phone for pre op education. Given both written and verbal instructions re : Skin prep, wound care, pain management and post op restrictions. Provided to patient: [facility] Surgery Guide, skin prep supplies, Spine Surgery Pre/post op education packet. Yes Reviewed with [facility] ? Yes. Reviewed with the patient to call [phone] the day before to get surgery report [...] and has support of son and daughter. 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 No FREEDOM OF CHOICE: Level of Care Discussed: Home Care Financial Disclosure Provided: No Financial Disclaimer Provided: No Provider List: Home Care Provider list within the patient's requested geographic area shared with the patient/family: Yes - Within [address] of [address] [place] [address] Provider Choices Collected Home Health: no prefernece Interventions: N/A SIGNATURE: DALLAS Barros PATIENT NAME: Braden Rodriguez DATE: September 24, 2023 TIME: 1:00 PM PAGER/CONTACT #: [facility] 09-24-2023 Miscellaneous Notes CARE CONTINUUM ADVISOR ASSESSMENT PRIMARY CARE PHYSICIAN: Ester Cain MD OR Surgery Date: 10/02/23 Health Insurance: [facility] Financial Resources: Retired Primary Contact: Extended Emergency Contact Information Primary Emergency Contact: Marycarmen Rodriguez Address: [address] [place] [address] Mobile Relation: Spouse Secondary Emergency Contact: NORA RODRIGUEZ Mobile Relation: Son Other Important Patient Contacts: 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 No FREEDOM OF CHOICE: Level of Care Discussed: Home Care Financial Disclosure Provided: No Financial Disclaimer Provided: No Provider List: Home Care Provider list within the patient's requested geographic area shared with the patient/family: Yes - Within [address] of [address] [place] [address] Provider Choices Collected Home Health: no prefernece Interventions: N/A SIGNATURE: DALLAS Barros PATIENT NAME: Braden Rodriguez DATE: September 24, 2023 TIME: 1:00 PM PAGER/CONTACT #: CM was able to leave a brief detailed message on identified vm requesting call back to discuss post op care. CM provided contact information. documented in this encounter [facility] 09-24-2023 Telephone encounter Note CM was able to leave a brief detailed message on identified vm requesting call back to discuss post op care. CM provided contact information. [facility] 09-16-2023 Telephone encounter Note Attempted to return call to home care PT Patient is coming back in for surgery in 2 weeks. Does not nee home care at this time. [facility] 09-16-2023 Miscellaneous Notes Attempted to return call to home care PT Patient is coming back in for surgery in 2 weeks. Does not nee home care at this time. Call received for Katherine Keith MD regarding Braden Rodriguez. Caller: Other: Devin with [facility] Patient Identified by Name and : Yes Reason for Call: Devin is calling to notify Dr. Keith that patient has not been seen for PT Devin states patient will not return calls Is there any additional information the provider should know? No, no response needed Last Office Visit: 09/04/2023 Next scheduled appointment: 10/08/2023 Best number to reach caller: Devin [phone] Best time to reach caller: 9 am till 5 pm Is it OK to leave a detailed voice message? Yes Melia Vieyra documented in this encounter [facility] 09-16-2023 Telephone encounter Note Call received for Katherine Keith MD regarding Braden Rodriguez. Caller: Other: Devin with [facility] Patient Identified by Name and : Yes Reason for Call: Devin is calling to notify Dr. Keith that patient has not been seen for PT Devin states patient will not return calls Is there any additional information the provider should know? No, no response needed Last Office Visit: 09/04/2023 Next scheduled appointment: 10/08/2023 Best number to reach caller: Devin [phone] Best time to reach caller: 9 am till 5 pm Is it OK to leave a detailed voice message? Yes Melia Ruizt [facility] 09-15-2023 Note Addended by: STEPHANE FAIR on: 09/15/2023 01:41 PM Modules accepted: Orders [facility] 09-15-2023 Miscellaneous Notes Addended by: STEPHANE FAIR [...] PA-C Spine Surgery documented in this encounter [facility] 09-15-2023 Telephone encounter Note Reviewed in patient notes Covering provider for Alfonso Loyd PA-C and Katherine Keith MD Patient's request for medication is as follows: Requested Prescriptions Pending Prescriptions Disp Refills oxyCODONE IR (ROXICODONE) 10 mg tab 42 tablet 0 Sig: Take 1 tablet by mouth every 4 hours as needed for pain for up to 7 days. Stephane Fair PA-C Spine Surgery [facility] 09-12-2023 Note Addended by: ALFONSO LOYD on: 09/12/2023 02:35 PM Modules accepted: Orders [facility] 09-12-2023 Miscellaneous Notes Addended by: ALFONSO LOYD on: 09/12/2023 02:35 PM Modules accepted: Orders documented in this encounter [facility] 09-10-2023 Note [facility] 09-10-2023 Note [facility] 09-10-2023 Note [facility] 09-09-2023 Note [facility] 09-09-2023 Note [facility] 09-09-2023 Note [facility] 09-08-2023 Note [facility] 09-08-2023 Note [facility] 09-05-2023 Telephone encounter Note Script was sent on 09/03. [facility] 09-05-2023 Miscellaneous Notes Script was sent on 09/03. documented in this encounter [facility] 09-04-2023 Telephone encounter Note Pt has an order that is from PA. Arianne For Home [facility]. Marianne from [facility] called and said pt was refusing Home Health. I did as her to call the ordering PA, she wanted it noted in his chart here, as well [facility] 09-04-2023 Miscellaneous Notes Pt has an order that is from PA. Arianne For [facility]. Marianne from [facility] called and said pt was refusing Home Health. I did as her to call the ordering PA, she wanted it noted in his chart here, as well documented in this encounter [facility] 09-02-2023 Telephone encounter Note Patient phones requesting refills as follows: Requested Prescriptions Pending Prescriptions Disp Refills oxyCODONE IR (ROXICODONE) 5 mg immediate release tablet 42 tablet 0 Sig: Take 1 tablet by mouth every 4 hours for 7 days. Last visit: 08/29/2023 Pharmacy: [id number] Pharm[facility] Current Dosage: Patient is currently taking 1 tab every 4 hrs; Has enough for several days left. Please review and advise; ph: [phone] Tara Mix [facility] 09-02-2023 Miscellaneous Notes Patient phones requesting refills as follows: Requested Prescriptions Pending Prescriptions Disp Refills oxyCODONE IR (ROXICODONE) 5 mg immediate release tablet 42 tablet 0 Sig: Take 1 tablet by mouth every 4 hours for 7 days. Last visit: 08/29/2023 Pharmacy: [id number] Pharm[facility] Current Dosage: Patient is currently taking 1 tab every 4 hrs; Has enough for several days left. Please review and advise; ph: [phone] Tara Mix documented in this encounter [facility] 09-01-2023 Telephone encounter Note Returned call to [...] review with Dr Keith and follow up. [facility] 09-01-2023 Miscellaneous Notes Returned call to patient [...] and follow up. documented in this encounter [facility] 08-29-2023 Telephone encounter Note Returned call to pharmacy. Kori Loyd did speak to patient regarding stopping the Rio Dell and taking Oxy. Also getting his pain medication through us during this post op time period. He voiced appreciation. No further questions. [facility] 08-29-2023 Miscellaneous Notes Returned call to pharmacy. Kori Loyd did speak to patient regarding stopping the Rio Dell and taking Oxy. Also getting his pain medication through us during this post op time period. He voiced appreciation. No further questions. Call received for Katherine Keith MD regarding Braden Rodriguez. Caller: Sandeep, Viviane [facility] Adelia MA Patient Identified by Name and : Yes [...] appointment: 10/08/2023 Best number to reach caller: [phone] Best time to reach caller: any Is it OK to leave a detailed voice message? Yes Winnie Quesada documented in this encounter [facility] 08-29-2023 Telephone encounter Note Call received for Katherine Keith MD regarding Braden Smithr. Caller: Viviane Hopkins [facility] Adelia MA Patient Identified by Name and : Yes [...] appointment: 10/08/2023 Best number to reach caller: [phone] Best time to reach caller: any Is it OK to leave a detailed voice message? Yes Winnie Quesada [facility] 08-29-2023 Note [facility] 08-29-2023 History of Present illness Narrative SPINE SURGERY FOLLOW UP This is a virtual visit using [employer] Video Visit. It required patient-provider interaction for the medical decision making as documented below. I have communicated my name and active licensure. The patient's identity and physical location were verified at the time of this visit. 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 Using Rio Dell from his PCP which is not as [...] His PCP filled his lat prescription for Rio Dell which is not providing relief. We discussed [...] 8:20 AM PAGER: documented in this encounter [facility] 08-22-2023 Note [facility] 08-21-2023 Note [facility] 08-21-2023 Note [facility] 08-20-2023 Note [facility] 08-20-2023 Note [facility] 08-20-2023 Note [facility] 08-20-2023 Note [facility] 08-19-2023 Note [facility] 08-19-2023 Note [facility] 08-19-2023 Note [facility] 08-11-2023 Telephone encounter Note CM was able to leave a brief detailed message on identifed vm requesting call back to discuss post op care. CM provided contact information. [facility] 08-11-2023 Miscellaneous Notes CM was able to leave a brief detailed message on identifed vm requesting call back to discuss post op care. CM provided contact information. documented in this encounter [facility] 08-10-2023 Note [facility] 08-10-2023 History of Present illness Narrative Patient referred to Blood Management for pre-surgical optimization. Hgb 15.1 which exceeds Blood Management guidelines for intervention. documented in this encounter [facility] 08-06-2023 History and physical note HISTORY AND [...] over the last year. Relieving factors include Rio Dell and steroids. Aggravating factors include repetitive movement. [...] fevers. Neuro: No history of TIA's, stroke, LUNCHEONETTE OPERATOR tumor, impaired sensorium, hemiplegia, paraplegia or quadraplegia. No neurological symptoms or problems. Respiratory: No history of current cough or dyspnea, or pneumonia in the past 6 weeks. No history of respiratory/pulmonary symptoms or problems. Cardiovascular:+htn, SVT Negative for Recent PA, Angina, CAD, Chest Pain GI: No history [...] Specific Question: Does consulting provider have [facility] access? Answer: Yes Type and Screen, [...] Braden Rodriguez DATE: 08/06/2023 TIME: 10:18 AM [facility] 08-06-2023 History and physical note HISTORY AND [...] over the last year. Relieving factors include Rio Dell and steroids. Aggravating factors include repetitive movement. [...] fevers. Neuro: No history of TIA's, stroke, LUNCHEONETTE OPERATOR tumor, impaired sensorium, hemiplegia, paraplegia or quadraplegia. No neurological symptoms or problems. Respiratory: No history of current cough or dyspnea, or pneumonia in the past 6 weeks. No history of respiratory/pulmonary symptoms or problems. Cardiovascular:+htn, SVT Negative for Recent PA, Angina, CAD, Chest Pain GI: No history [...] TIME: 10:18 AM documented in this encounter [facility] 08-01-2023 Telephone encounter Note Duplicate, patient already spoke to RN (see phone encounter). [facility] 08-01-2023 Miscellaneous Notes Duplicate, patient already spoke to RN (see phone encounter). documented in this encounter [facility] 08-01-2023 Telephone encounter Note Patient accepts sooner date of 08/18 New education class on 08/11 at 2 PM Will change post ops He voiced appreciation. No further questions. [facility] 08-01-2023 Miscellaneous Notes Patient accepts sooner date of 08/18 New education class on 08/11 at 2 PM Will change post ops He voiced appreciation. No further questions. Patient is returning nurse call pertaining to below message, sooner appt call back [phone] Called patient to offer sooner surgery date Left message to return call to the office documented in this encounter [facility] 08-01-2023 Telephone encounter Note Patient is returning nurse call pertaining to below message, sooner appt call back [phone] [facility] 08-01-2023 Instructions Sanam Gill PA-C - 08/01/2023 9:35 AM EDT PATIENT PREOPERATIVE INSTRUCTIONS Katherine Keith MD has scheduled you for your procedure at this surgery center: [facility] [place] Scheduling Office: [phone] --[address] [place] [address]. Please read below carefully for your personalized instructions. Arrival Time for Surgery: - To obtain your arrival time for surgery, call your physician's office the day before your surgery. - If your surgery is scheduled for Friday, call the Friday before. Your surgeon s monotype caster will tell you what time to call the office. - If you have not reached the departmental monotype caster by 5 P.M., call [phone] after 5 P.M. the day before your [...] Advance Directive, please fax a copy to [phone] or email to for it to be [...] Sanam Gill PA-C documented in this encounter [facility] 08-01-2023 Telephone encounter Note Called patient to offer sooner surgery date Left message to return call to the office [facility] 07-14-2023 Telephone encounter Note Received, Reviewed Jamey Disability Attending Physician Statement [employer] forms and need signed by Dr. Keith Sent to Dr. Keith via [employer] for signature Leave dates: 09/02/23-11/07/23 No Post op appt scheduled as of yet. Garcia Maldonado LPN [facility] 07-14-2023 Miscellaneous Notes Received, Reviewed Jamey Disability Attending Physician Statement [employer] forms and need signed by Dr. Keith Sent to Dr. Keith via [employer] for signature Leave dates: 09/02/23-11/07/23 No Post op appt scheduled as of yet. Garcia Maldonado LPN documented in this encounter [facility] 06-12-2023 Miscellaneous Notes Neuro SPINE CARE COORDINATION QUICK NOTE Called patient to discuss disability paperwork. His PCP has completed his previous STD paperwork Patient is not scheduled for surgery until August. Discussed this office will be able to complete his disability paperwork postop Advised to reach out to his PCP to continue with disability until surgery. Patient states [employer] only needs office note. This office will fax over the office note from 04/30 No further questions. I received [employer] forms for LTD. I called patient to explain we don't complete LTD, but he stated that he is not currently working and have exhausted his STD. He states the form is due 06/12/23. Sending to CC. Oliver to review Received Attending Physician's Statement from [employer]. Sent via [employer] for processing. documented in this encounter [facility] 05-29-2023 Miscellaneous Notes Neuro SPINE CARE COORDINATION [...] of non-home discharge disposition : Low [5.2] Melody Castaneda RN Surgery Planning Name: Braden Rodriguez [...] schedule post op in person with Dr Pelle 6-8wks post op [place] call: anytime [...] N/A TREK/MC N/A documented in this encounter [facility] 05-04-2023 History of Present illness Narrative Radiology [...] PATIENT PRESENTS WITH AN IMPLANTABLE OR ATTACHED PASSENGER BARGE MASTER: No RADIOLOGY DEPARTMENT: CT; Exam(s) Completed: Spine PERIPHERAL IV DATA: Not applicable SIGNED BY: MARY Gomes) May 04, 2023 8:09 AM documented in this encounter [facility] 05-04-2023 Note HNO ID: [id number] Author: BLANCA PRICE RT(R) Service: Radiology Author Type: Technologist Type: [...] PATIENT PRESENTS WITH AN IMPLANTABLE OR ATTACHED PASSENGER BARGE MASTER: No RADIOLOGY DEPARTMENT: CT; Exam(s) Completed: Spine [...] PATIENT PRESENTS WITH AN IMPLANTABLE OR ATTACHED PASSENGER BARGE MASTER: No RADIOLOGY DEPARTMENT: General X-ray: Exam(s) Completed: Spine X-Ray(s): Scoliosis Series PERIPHERAL IV DATA: Not applicable SIGNED BY: RT Jimbo(R) April 30, 2023 1:42 PM documented in this encounter [facility] 04-30-2023 History of Present illness Narrative Images [...] risk of hardware failure including hardware pullout, jw breakage, screw breakage was discussed. The risk [...] 04/30/2023 PCP: Ester Cain MD REFERRING PROVIDER: Tobi Angeles [id number] [facility] [place] [address] Consult requested for an opinion regarding the [...] 11:51 AM PAGER: documented in this encounter [facility] 04-30-2023 History of Present illness Narrative Radiology [...] PATIENT PRESENTS WITH AN IMPLANTABLE OR ATTACHED PASSENGER BARGE MASTER: No RADIOLOGY DEPARTMENT: General X-ray: Exam(s) Completed: Spine X-Ray(s): Lumbar AP / LAT / L5-S1 / FLEX-EXT PERIPHERAL IV DATA: Not applicable SIGNED BY: RT Guillermo(R) April 30, 2023 10:47 AM documented in this encounter [facility] 03-21-2023 History of Present illness Narrative Requesting to see Dr. Keith Left leg pain, trouble walking, numbness in the leg, weakness. He has tried: PT, NSAID, steroids, MR, Tramadol Previous surgery x 3 at [place] Lumbar MRI report with severe central stenosis of L3-4 and L4-5. XR ordered for an appointment with Dr. Keith. Patient name: Braden Rodriguez Are you being referred by a [place] for Spine Health Provider or Pain Management Provider at [facility]? No If answer is YES please [...] where the MRI/CT/myelogram was completed: MRI [facility] [address] [place] [address] MRI/CT/myelogram viewable in Epic: No If not, please provide [phone] to fax in imaging reports for review. Also, please inform patient to hand carry imaging disc to appointment. XR (spine) within 12 months: Yes If YES, please ask for the name/address of the facility where the XR was completed: Dr. Tobi Angeles MD [address], [place] [address] Dr. Davis's patients: Have you had previous [...] Starting PT 03/20/2023 for drop foot [facility] [address] [place] [address] Have you tried any other kinds of [...] where the surgery was completed: 1999 laminectomy [facility] [place] lumbar [facility] [place] 2019 lumbar surgery [facility] Additional Comments [phone] documented in this encounter [facility] 12-05-2022 Hospital Discharge instructions Patient Education 12/05/2022 [...] treatment? Where to find more information The [employer]: www.cancer.org [place]: www.auanet.org Contact a health care [...] provider. Document Revised: 08/20/2021 Document Reviewed: 08/20/2021 [employer] Patient Education 2022 [employer] [place]. Follow Up Care 11/27/2022 14:43:00 With:Kahlil JERNIGAN, MALRENA Salmon, URO Address: When: Unknown [facility] 10-30-2022 Hospital Discharge instructions Patient Education [...] treatment? Where to find more information The [employer]: www.cancer.org [place] Association: www.auanet.org Contact a health care [...] provider. Document Revised: 08/20/2021 Document Reviewed: 08/20/2021 [employer] Patient Education 2022 [employer] [place]. Follow Up Care 09/04/2022 08:48:35 With:Kahlil JERNIGAN, MARLENA Salmon, URO Address: When:Within 2 Month(s) Comments:w/PSA [facility] 09-04-2022 Hospital Discharge instructions Patient Education 09/04/2022 [...] treatment? Where to find more information The [place]: www.cancer.org [employer] Association: www.auanet.org Contact a health care [...] provider. Document Revised: 08/20/2021 Document Reviewed: 08/20/2021 [employer] Patient Education 2022 [employer] [place]. Follow Up Care 08/26/2022 10:02:45 With:Kahlil JERNIGAN, MARLENA Salmon URO Address: When:Within 4 Week(s) Comments:w/ PSA [facility] 05-07-2022 Hospital Discharge instructions Follow Up Care 05/07/2022 15:08:01 With:Camryn AGUSTIN MD, SUR Address: [address] [place] [id number]- When: only if needed General Surgery Javed Evaluation + Plan note No data available for this section General Surgery [employer] Evaluation + Plan note Future Appointments Appointment Date:05/21/2022 02:40:00 PM Scheduled Provider:Camryn AGUSTIN MD Location:[facility] Appointment Type: Post Op 15 General Surgery [place] Evaluation + Plan note Future Appointments Appointment Date:09/24/2022 01:40:00 PM Scheduled Provider:Camryn AGUSTIN MD Location:[facility] Appointment Type: Established 15 Appointment Date:09/25/2022 08:45:00 AM Scheduled Provider:Shae Guillory MD Location:[facility] Appointment Type:URO Office Visit Diagnostic Tests PendingPSA Total 09/04/22PSA Free & Total 09/04/[address] [facility] Evaluation + Plan note Future Appointments Appointment Date:01/08/2023 09:00:00 AM Scheduled Provider:Shae Guillory MD Location:[facility] Appointment Type:URO Office Visit Diagnostic Tests PendingPSA Free & Total 10/30/[address] [facility] Evaluation + Plan note Future Appointments Appointment Date:04/23/2023 09:45:00 AM Scheduled Provider:Shae Guillory MD Location:[facility] Appointment Type:URO Office Visit Diagnostic Tests PendingPSA Free & Total 12/05/22 [facility] Evaluation note No assessment inform ation available [facility] Work Phone: Evaluation note Diagnosis Spinal stenosis, lumbar region with neurogenic claudication- Primary [facility] Diagnosis History of lumbar laminectomy for spinal cord decompression Other postprocedural status Degenerative scoliosis in adult patient Chronic low back pain, unspecified back pain laterality, unspecified whether sciatica present [facility] Diagnosis Spinal stenosis, lumbar region with neurogenic claudication [facility] Diagnosis Chronic low back pain, unspecified back pain laterality, unspecified whether sciatica present [facility]* Diagnosis History of lumbar laminectomy for spinal cord decompression- Primary Other postprocedural status Degenerative scoliosis in adult patient Chronic low back pain, unspecified back pain laterality, unspecified whether sciatica present [facility]* Diagnosis History of laminectomy- Primary Other postprocedural status Degenerative scoliosis in adult patient Pre-op testing Preoperative examination, unspecified Iron deficiency anemia, unspecified iron deficiency anemia type History of laminectomy Other postprocedural status Degenerative scoliosis in adult patient Pre-op testing Preoperative examination, unspecified [facility]* Diagnosis Pre-op exam- Primary Preoperative examination, unspecified Primary hypertension Unspecified essential hypertension SVT (supraventricular tachycardia) (HCC) Other specified cardiac dysrhythmias History of penicillin allergy Personal history of allergy to penicillin History of laminectomy Other postprocedural status Degenerative scoliosis in adult patient Pre-op testing Preoperative examination, unspecified documented in this encounter [facility] Diagnosis Acute post-operative pain documented in this encounter [facility] Diagnosis Acute post-operative pain documented [facility] this [facility]* Diagnosis Acute post-operative pain documented in this encounter [facility]* Diagnosis S/P lumbar fusion- Primary Arthrodesis status documented in this encounter [facility]* Diagnosis S/P lumbar spinal fusion- Primary Arthrodesis status Pre-op testing Preoperative examination, unspecified S/P lumbar spinal fusion Arthrodesis status documented [facility] this [facility]* Diagnosis S/P lumbar fusion Arthrodesis status S/P lumbar spinal fusion Arthrodesis status documented [facility]* Diagnosis S/P lumbar spinal fusion- Primary Arthrodesis status S/P lumbar spinal fusion Arthrodesis status documented [facility]* Diagnosis Post-op pain- Primary Other acute postoperative pain [facility]* Diagnosis Post-op pain Other acute postoperative pain [facility]* Diagnosis Right leg weakness- Primary Other musculoskeletal symptoms referable to limbs S/P lumbar fusion Arthrodesis status [facility]* Diagnosis Post-op pain Other acute postoperative pain [facility]* Diagnosis Acute post-operative pain SVT (supraventricular [...] acute postoperative pain [facility]* Diagnosis Acute post-operative pain SVT (supraventricular [...] [facility] Acute post-operative pain SVT (supraventricular [...] in adult [facility] Diagnosis Acute post-operative pain SVT (supraventricular [...] whether sciatica present [facility] Diagnosis Acute post-operative [...] post-operative pain Primary hypertension Unspecified essential hypertension S/P lumbar fusion- Primary Arthrodesis status Right leg weakness Other musculoskeletal symptoms referable to limbs [facility]* Diagnosis Acute post-operative pain SVT (supraventricular [...] Unspecified essential hypertension Adverse effect of treatment, sequela [facility]* Diagnosis Acute post-operative pain SVT (supraventricular [...] Unspecified essential hypertension Adverse effect of treatment, sequela documented [facility] this [facility]* Diagnosis Acute post-operative [...] post-operative pain Primary hypertension Unspecified essential hypertension Acute low back pain, unspecified back pain laterality, unspecified whether sciatica present documented [facility] this [facility]* Diagnosis Acute post-operative [...] post-operative pain Primary hypertension Unspecified essential hypertension Lumbosacral plexus disorders- Primary Lumbosacral plexus lesions Adverse effect of treatment, sequela Radiculopathy, lumbosacral region Thoracic or lumbosacral neuritis or radiculitis, unspecified Other abnormalities of gait and mobility Weakness generalized Other malaise and fatigue [facility]* Diagnosis Acute post-operative pain SVT (supraventricular [...] post-operative pain Primary hypertension Unspecified essential hypertension Spinal stenosis of cervical region- Primary Spinal stenosis in cervical region documented [facility] Diagnosis Acute post-operative [...] post-operative pain Primary hypertension Unspecified essential hypertension Spinal stenosis of cervical region Spinal stenosis in cervical region documented in this [facility]* Diagnosis Acute post-operative [...] post-operative pain Primary hypertension Unspecified essential hypertension Spinal stenosis of cervical region- Primary Spinal stenosis in cervical region Iron deficiency anemia, unspecified iron deficiency anemia type Pre-op testing Preoperative examination, unspecified Spinal stenosis of cervical region Spinal stenosis in cervical region [facility]* Diagnosis Acute post-operative pain SVT (supraventricular [...] post-operative pain Primary hypertension Unspecified essential hypertension Pre-op evaluation- Primary Preoperative examination, unspecified Spinal stenosis of lumbar region, unspecified whether neurogenic claudication present Primary hypertension Unspecified essential hypertension Spinal stenosis of cervical region Spinal stenosis in cervical region [facility]* Diagnosis Acute post-operative pain SVT (supraventricular [...] post-operative pain Primary hypertension Unspecified essential hypertension Spinal stenosis of cervical region Spinal stenosis in cervical region Spinal stenosis of cervical region Spinal stenosis in cervical region [facility] Acute post-operative pain SVT [...] post-operative pain Primary hypertension Unspecified essential hypertension Cervical spondylosis with myelopathy- Primary Spinal stenosis of cervical region Spinal stenosis in cervical region [facility]* Diagnosis Acute post-operative pain SVT (supraventricular [...] post-operative pain Primary hypertension Unspecified essential hypertension Cervical spondylosis with myelopathy- Primary Spinal stenosis of cervical region Spinal stenosis in cervical region Spinal stenosis of cervical region Spinal stenosis in cervical region Spinal stenosis of cervical region Spinal stenosis in cervical region [facility]* Diagnosis Acute post-operative pain Scoliosis of lumbar region due to degenerative disease of spine in adult Intractable pain- Primary Other chronic pain Pain and swelling of lower extremity, unspecified laterality Foot drop, right foot S/P lumbar fusion Arthrodesis status Primary hypertension Unspecified essential hypertension Acute post-operative pain Localized swelling of lower extremity 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 without myelopathy Edema of both lower extremities Localized swelling of lower extremity Pain and swelling of lower extremity Low back pain- Primary Lumbago Acute post-operative pain Cervical spondylosis with myelopathy- Primary Postoperative pain after spinal surgery Adverse effect of treatment, sequela Acute postoperative pain Other acute postoperative pain S/P cervical spinal fusion Arthrodesis status Cervical spondylosis with myelopathy Primary hypertension Unspecified essential hypertension S/P cervical spinal fusion Arthrodesis status Acute postoperative pain Other acute postoperative pain Elevated troponin Other abnormal blood chemistry SVT (supraventricular tachycardia) (HCC)- Primary Other specified cardiac dysrhythmias Elevated troponin Other abnormal blood chemistry [facility]* Diagnosis Acute post-operative pain Scoliosis of lumbar region due to degenerative disease of spine in adult Intractable pain- Primary Other chronic pain Pain and swelling of lower extremity, unspecified laterality Foot drop, right foot S/P lumbar fusion Arthrodesis status Primary hypertension Unspecified essential hypertension Acute post-operative pain Localized swelling of lower extremity 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 without myelopathy Edema of both lower extremities Localized swelling of lower extremity Pain and swelling of lower extremity Low back pain- Primary Lumbago Acute post-operative pain Cervical spondylosis with myelopathy- Primary Postoperative pain after spinal surgery Adverse effect of treatment, sequela Acute postoperative pain Other acute postoperative pain S/P cervical spinal fusion Arthrodesis status Cervical spondylosis with myelopathy Primary hypertension Unspecified essential hypertension S/P cervical spinal fusion Arthrodesis status Acute postoperative pain Other acute postoperative pain Elevated troponin Other abnormal blood chemistry Encounter for removal of sara- Primary Encounter for removal of sutures [facility]* Diagnosis Acute post-operative pain Scoliosis of lumbar region due to degenerative disease of spine in adult Intractable pain- Primary Other chronic pain Pain and swelling of lower extremity, unspecified laterality Foot drop, right foot S/P lumbar fusion Arthrodesis status Primary hypertension Unspecified essential hypertension Acute post-operative pain Localized swelling of lower extremity 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 without myelopathy Edema of both lower extremities Localized swelling of lower extremity Pain and swelling of lower extremity Low back pain- Primary Lumbago Acute post-operative pain Cervical spondylosis with myelopathy- Primary Postoperative pain after spinal surgery Adverse effect of treatment, sequela Acute postoperative pain Other acute postoperative pain S/P cervical spinal fusion Arthrodesis status Cervical spondylosis with myelopathy Primary hypertension Unspecified essential hypertension S/P cervical spinal fusion Arthrodesis status Acute postoperative pain Other acute postoperative pain Elevated troponin Other abnormal blood chemistry Post-op pain Other acute postoperative pain documented in this encounter [facility]* Diagnosis Acute post-operative pain Scoliosis of lumbar region due to degenerative disease of spine in adult Intractable pain- Primary Other chronic pain Pain and swelling of lower extremity, unspecified laterality Foot drop, right foot S/P lumbar fusion Arthrodesis status Primary hypertension Unspecified essential hypertension Acute post-operative pain Localized swelling of lower extremity 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 without myelopathy Edema of both lower extremities Localized swelling of lower extremity Pain and swelling of lower extremity Low back pain- Primary Lumbago Acute post-operative pain Cervical spondylosis with myelopathy- Primary Postoperative pain after spinal surgery Adverse effect of treatment, sequela Acute postoperative pain Other acute postoperative pain S/P cervical spinal fusion Arthrodesis status Cervical spondylosis with myelopathy Primary hypertension Unspecified essential hypertension S/P cervical spinal fusion Arthrodesis status Acute postoperative pain Other acute postoperative pain Elevated troponin Other abnormal blood chemistry Post-op pain Other acute postoperative pain documented in this [facility]* Diagnosis Acute post-operative pain Scoliosis of lumbar region due to degenerative disease of spine in adult Intractable pain- Primary Other chronic pain Pain and swelling of lower extremity, unspecified laterality Foot drop, right foot S/P lumbar fusion Arthrodesis status Primary hypertension Unspecified essential hypertension Acute post-operative pain Localized swelling of lower extremity 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 without myelopathy Edema of both lower extremities Localized swelling of lower extremity Pain and swelling of lower extremity Low back pain- Primary Lumbago Acute post-operative pain Cervical spondylosis with myelopathy- Primary Postoperative pain after spinal surgery Adverse effect of treatment, sequela Acute postoperative pain Other acute postoperative pain S/P cervical spinal fusion Arthrodesis status Cervical spondylosis with myelopathy Primary hypertension Unspecified essential hypertension S/P cervical spinal fusion Arthrodesis status Acute postoperative pain Other acute postoperative pain Elevated troponin Other abnormal blood chemistry Spondylolysis, lumbar region- Primary Acquired spondylolisthesis S/P cervical spinal fusion Arthrodesis status [facility] Diagnosis Acute post-operative pain Scoliosis of lumbar region due to degenerative disease of spine in adult Intractable pain- Primary Other chronic pain Pain and swelling of lower extremity, unspecified laterality Foot drop, right foot S/P lumbar fusion Arthrodesis status Primary hypertension Unspecified essential hypertension Acute post-operative pain Localized swelling of lower extremity 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 without myelopathy Edema of both lower extremities Localized swelling of lower extremity Pain and swelling of lower extremity Low back pain- Primary Lumbago Acute post-operative pain Cervical spondylosis with myelopathy- Primary Postoperative pain after spinal surgery Adverse effect of treatment, sequela Acute postoperative pain Other acute postoperative pain S/P cervical spinal fusion Arthrodesis status Cervical spondylosis with myelopathy Primary hypertension Unspecified essential hypertension S/P cervical spinal fusion Arthrodesis status Acute postoperative pain Other acute postoperative pain Elevated troponin Other abnormal blood chemistry S/P cervical spinal fusion- Primary Arthrodesis status documented in this encounter [facility] Discharge instructions No data available for this section General Surgery [employer] note No data available for this section General Surgery [employer] [facility] (narrative)* Diagnostic Procedure Only (Routine) - Pending Review Specialty Diagnoses / Procedures Referred By Lencho t Referred To Contact XR IMAGING Diagnoses Spinal stenosis, lumbar region with neurogenic claudication Procedures XR LUMBAR MOTION 4V AP/LAT/ FLEX/EXT RADEX SPINE LUMBOSACRAL MINIMUM 4 VIEWS Alfonso Loyd PA-C [address] [place] [address] [place] [address] Referral ID Status Reason Start Date Expiration Date Visits Requested Visits Authorized [id number] Pending Review Auto-Generat ed Referral 03/21/2023 04/19/2024 1 1 [facility] for referral (narrative)* Diagnostic Procedure Only [...] SAC SPI W/SKULL 2/3 Katherine Keith MD [address] [place] [address] [id number] Referral ID Status Reason Start Date Expiration Date V isits Requested Visits Authorized [id number] Closed Auto-Generate d Referral 04/30/2023 05/29/2024 1 1 [facility] for referral (narrative)* Diagnostic Procedure Only (Routine) - Closed Specialty Diagnoses / Procedures Referred By Contac t Referred To Contact XR IMAGING Diagnoses Spinal stenosis, lumbar region with neurogenic claudication Procedures XR LUMBAR MOTION 4V AP/LAT/ FLEX/EXT RADEX SPINE LUMBOSACRAL MINIMUM 4 VIEWS Alfonso Loyd PA-C [address] [place] [address] [id number] Referral ID Status Reason Start Date Expiration Date V isits Requested Visits Authorized [id number] Closed Auto-Generate d Referral 03/21/2023 04/19/2024 1 1 [facility] for referral (narrative)* Outpatient Procedure (Routine) - Pending Review Specialty Diagnoses / Procedures Referred By Contac t Referred To Contact [facility] Diagnoses Pre-op exam Procedures ECG COMPLETE ECG ROUTINE ECG W/LEAST 12 LDS W/I&R Sanam Gill PA-C [address] [place] [address] [facility] [place] [address] [place] [address] Referral ID Status Reason Start Date Expiration Date Visits Requested Visits Authorized [id number] Pending Review Auto-Generat ed Referral 08/06/2023 08/05/2024 1 1 [facility] for referral (narrative)* Diagnostic Procedure Only (Routine) - Closed Specialty Diagnoses / Procedures Referred By Contac t Referred To Contact XR IMAGING Diagnoses History of laminectomy Degenerative scoliosis in adult patient Procedures XR LUMBAR LIMITED 2V AP/LAT RADEX SPINE LUMBOSACRAL 2/3 VIEWS Alfonso Loyd PA-C [address] [facility] [place] [address] Xr Imaging [place] [address] Referral ID Status Reason Start Date Expiration Date V isits Requested Visits Authorized [id number] Closed Auto-Generate d Referral 07/11/2023 08/09/2024 1 1 [facility] for referral (narrative)* Outpatient Procedure (Routine) - Pending Review Specialty Diagnoses / Procedures Referred By Contac t Referred To Contact [facility] Diagnoses Adverse effect of treatment, sequela Procedures EMG(NEURO/NI) NERVE CONDUCTION STUDIES 9-10 STUDIES Katherine Keith MD [address] [place] [address] [facility] [place] [address] [place] [address] Referral ID Status Reason Start Date Expiration Date Visits Requested Visits Authorized [id number] Pending Review Auto-Generat ed Referral 11/12/2023 11/11/2024 1 1 * MRI/CT (Routine) - Authorized Specialty Diagnoses / Procedures Referred By Contac t Referred To Contact CT IMAGING Diagnoses Acute low back pain, unspecified back pain laterality, unspecified whether sciatica present Procedures CT LUMBAR SPINE WO IVCON CT LUMBAR SPINE W/O CONTRAST MATERIAL Katherine Keith MD [address] [place] [id number] [facility] [place] [address] Referral ID Status Reason Start Date Expiration Date Visits Requested Visits Authorized [id number] Authorized Auto-Generat ed Referral 11/12/2023 12/11/2024 1 1 * MRI/CT (Routine) - Authorized Specialty Diagnoses / Procedures Referred By Contac t Referred To Contact MR IMAGING Diagnoses Adverse effect of treatment, sequela Procedures MRI LUMBAR SPINE WO IVCON MRI SPINAL CANAL LUMBAR W/O CONTRAST MATERIAL Katherine Keith MD [address] [facility] [place] [id number] Mr Imaging [id number] Referral ID Status Reason Start Date Expiration Date Visits Requested Visits Authorized [id number] Authorized Auto-Generat ed Referral 11/12/2023 12/11/2024 1 1 * MRI/CT (Routine) - Authorized Specialty Diagnoses / Procedures Referred By Contac t Referred To Contact MR IMAGING Diagnoses Adverse effect of treatment, sequela Procedures MRI THORACIC SPINE WO IVCON MRI SPINAL CANAL THORACIC W/O CONTRAST CHRISTIANL Katherine Keith MD [address] [place] [address] [id number] Referral ID Status Reason Start Date Expiration Date Visits Requested Visits Authorized [id number] Authorized Auto-Generat ed Referral 11/12/2023 12/11/2024 1 1 [facility] for referral (narrative)* Diagnostic Procedure Only (Routine) - Closed Specialty Diagnoses / Procedures Referred By Contac t Referred To Contact MR IMAGING Diagnoses Spinal stenosis of cervical region Procedures MRI CERVICAL SPINE WO IVCON MRI SPINAL CANAL CERVICAL W/O CONTRAST Alfonso Campos PA-C [address] [place] [address] [id number] Referral ID Status Reason Start Date Expiration Date V isits Requested Visits Authorized [id number] Closed Auto-Generate d Referral 02/21/2024 03/09/2024 1 1 [facility] Reason for visit Narrative* MRI/CT (Routine) - Closed Specialty Diagnoses / Procedures Referred By Contac t Referred To Contact CT IMAGING Diagnoses Spinal stenosis of cervical region Procedures CT CERVICAL SPINE WO IVCON CT CERVICAL SPINE W/O CONTRAST MATERIAL Katherine Keith MD [address] [place] [address] Phone: tel: fax: CT IMAGING [id number] Referral ID Status Reason Start Date Expiration Date V isits Requested Visits Authorized [id number] Closed Auto-Generate d Referral 05/14/2024 03/09/2025 1 1 [facility] Summary Purpose Family History No Family History [...] Visit Chief Complaint r97.20 Chief Complaint Unknown Chief Complaint Admit Date L98.491 I73.9 R09.89 September 27, 2024 1:1 4pm Reason for Referral Specialty Diagnoses / Procedures Referred By Contac t Referred To Contact MR IMAGING Diagnoses Spinal stenosis of cervical region Procedures MRI CERVICAL SPINE WO IVCON MRI SPINAL CANAL CERVICAL W/O CONTRAST MATRL Alfonso Loyd PA-C [address] [place] [address] [id number] Referral ID Status Reason Start Date Expiration Date Visits Requested Visits Authorized [id number] New Request Auto-Generat ed Referral 03/04/2025 1 1 Specialty Diagnoses / Procedures Referred By Contac t Referred To Contact CT IMAGING Diagnoses Acute low back pain, unspecified back pain laterality, unspecified whether sciatica present Procedures CT LUMBAR SPINE WO IVCON CT LUMBAR SPINE W/O CONTRAST MATERIAL Katherine Keith MD [address] [facility] [place] [id number] [id number] Referral ID Status Reason Start Date Expiration Date V isits Requested Visits Authorized [id number] Closed Auto-Generate d Referral 11/12/2023 12/11/2024 1 1 Specialty Diagnoses / Procedures Referred By Contac t Referred To Contact MR IMAGING Diagnoses Adverse effect of treatment, sequela Procedures MRI LUMBAR SPINE WO IVCON MRI SPINAL CANAL LUMBAR W/O CONTRAST MATERIAL Katherine Keith MD [address] [facility] [place] [phone] Mr Imaging [id number] Referral ID Status Reason Start Date Expiration Date V isits Requested Visits Authorized [id number] Closed Auto-Generate d Referral 11/12/2023 12/11/2024 1 1 Specialty Diagnoses / Procedures Referred By Contac t Referred To Contact [facility] Diagnoses Right leg weakness S/P lumbar fusion Procedures CONSULT TO PHYSICAL THERAPY PHYSICAL THERAPY EVALUATION HIGH COMPLEX 45 MINS Alfonso Loyd PA-C [address] [place] [address] [facility] [place] [id number] Referral ID Status Reason Start Date Expiration Date Visits Requested Visits Authorized [id number] Pending Review Auto-Generat ed Referral 10/21/2023 10/20/2024 1 1 Specialty Diagnoses / Procedures Referred By Contac t Referred To Contact Diagnoses History of laminectomy Degenerative scoliosis in adult patient Pre-op testing Procedures REFER TO [facility] - PRE ANESTHESIA CONSULTATION CLINIC OFFICE/OUTPATIENT NEW HIGH MDM 60 MINUTES Alfonso Loyd PA-C [address] [place] [address] Referral ID Status Reason Start Date Expiration Date Visits Requested Visits Authorized [id number] Authorized PCP Requested Referral 07/11/2023 07/10/2024 1 1 Specialty Diagnoses / Procedures Referred By Contac t Referred To Contact XR IMAGING Diagnoses History of laminectomy Degenerative scoliosis in adult patient Procedures XR LUMBAR LIMITED 2V AP/LAT RADEX SPINE LUMBOSACRAL 2/3 VIEWS Alfonso Loyd PA-C [address] [place] [address] Xr Imaging [place] [address] Referral ID Status Reason Start Date Expiration Date Visits Requested Visits Authorized [id number] Pending Review Auto-Generat ed Referral 07/11/2023 08/09/2024 1 1 Specialty Diagnoses / Procedures Referred By Contac t Referred To Contact [facility] Diagnoses History of lumbar laminectomy for spinal cord decompression Degenerative scoliosis in adult patient Chronic low back pain, unspecified back pain laterality, unspecified whether sciatica present Procedures EMG(NEURO/NI) NERVE CONDUCTION STUDIES 9-10 STUDIES Katherine Keith MD [address] [place] [address] [facility] [place] [address] [place] [address] Referral ID Status Reason Start Date Expiration Date Visits Requested Visits Authorized [id number] Authorized Auto-Generat ed Referral 05/06/2023 03/09/2024 1 1 Specialty Diagnoses / Procedures Referred By Contac t Referred To Contact CT IMAGING Diagnoses Chronic low back pain, unspecified back pain laterality, unspecified whether sciatica present Procedures CT LUMBAR SPINE WO IVCON CT LUMBAR SPINE W/O CONTRAST MATERIAL Katherine Keith MD [address] [place] [address] Ct Imaging [place] [id number] Referral ID Status Reason Start Date Expiration Date V isits Requested Visits Authorized [id number] Closed Auto-Generate d Referral 04/30/2023 05/29/2024 1 [...] W/SKULL 2/3 VW Katherine Keith MD [address] [place] [address] Xr Imaging [place] [id number] Referral ID Status Reason Start Date Expiration Date V isits Requested Visits Authorized [id number] Closed Auto-Generate d Referral 04/30/2023 05/29/2024 1 1 Specialty Diagnoses / Procedures Referred By Contac t Referred To Contact CT IMAGING Diagnoses Chronic low back pain, unspecified back pain laterality, unspecified whether sciatica present Procedures CT LUMBAR SPINE WO IVCON CT LUMBAR SPINE W/O CONTRAST MATERIAL Katherine Keith MD [address] [facility] [place] [address] Ct Imaging [place] [id number] Referral ID Status Reason Start Date Expiration Date V isits Requested Visits Authorized [id number] Closed Auto-Generate d Referral 04/30/2023 05/29/2024 1 1 Additional Source Comments (unrecognized sect ion and content) No Status Records FoundNo Status Records FoundNo Status Records FoundNo Status Records FoundNo Status Records FoundNo Status Records FoundNo Status Records FoundNo Status Records FoundNo Status Records FoundNo Status Records Found INFORMATION SOURCE (unrecogn ized section and content) DATE CREATED AUTHOR 05/16/2020 [facility] DATE CREATED AUTHOR AUTHOR'S ORGANIZ ATION 09/06/2020 [facility] DATE CREATED AUTHOR AUTHOR'S ORGANIZ ATION 05/18/2022 [facility] DATE CREATED AUTHOR AUTHOR'S ORGANIZ ATION 06/13/2022 [facility] DATE CREATED AUTHOR AUTHOR'S ORGANIZ ATION 08/18/2023 [facility] DATE CREATED AUTHOR AUTHOR'S ORGANIZ ATION 12/05/2023 [facility] DATE CREATED AUTHOR AUTHOR'S ORGANIZ ATION 12/18/2023 [facility] DATE CREATED AUTHOR AUTHOR'S ORGANIZ ATION 05/16/2024 [facility] DATE CREATED AUTHOR AUTHOR'S ORGANIZ ATION 07/17/2024 [facility] DATE CREATED AUTHOR AUTHOR'S ORGANIZ ATION 09/21/2024 [facility] EPIC Patient Care team informatio n (unrecognized section and content) Team Status: Active Member Role Status Dates Ester Cain MD Primary Care Provider Active Team Status: Inactive Member Role Status Dates Ester Cain MD Primary Care Provider Active Shae Guillory MD Attending Provider Active [employer] Relationship Specialty Start Date End Date Ester Cain MD PCP - General 05/05/06 [employer] Relationship Specialty Start Date End Date Ester Cain MD PCP - General 05/05/06 [employer] Relationship Specialty Start Date End Date Ester Cain MD PCP - General 05/05/06 [employer] Operator Relationship Specialty Start Date End Date Ester Cain MD PCP - General 05/05/06 [employer] Operator Relationship Specialty Start Date End Date Ester Cain MD PCP - General 05/05/06 [employer] Operator Relationship Specialty Start Date End Date Ester Cain MD PCP - General 05/05/06 [employer] Operator Relationship Specialty Start Date End Date Ester Cain MD PCP - General 05/05/06 [employer] Operator Relationship Specialty Start Date End Date Ester Cain MD PCP - General 05/05/06 [employer] Operator Relationship Specialty Start Date End Date Ester Cain MD PCP - General 05/05/06 [employer] Operator Relationship Specialty Start Date End Date Ester Cain MD PCP - General 05/05/06 [employer] Operator Relationship Specialty Start Date End Date Ester Cain MD PCP - General 05/05/06 [employer] Operator Relationship Specialty Start Date End Date Ester Cain MD PCP - General 05/05/06 [employer] Operator Relationship Specialty Start Date End Date Ester Cain MD PCP - General 05/05/06 [employer] Operator Relationship Specialty Start Date End Date Ester Cain MD PCP - General 05/05/06 [employer] Operator Relationship Specialty Start Date End Date Ester Cain MD PCP - General 05/05/06 [employer] Operator Relationship Specialty Start Date End Date Ester Cain MD PCP - General 05/05/06 [employer] Operator Relationship Specialty Start Date End Date Ester Cain MD PCP - General 05/05/06 [employer] Operator Relationship Specialty Start Date End Date Ester Cain MD PCP - General 05/05/06 [employer] Operator Relationship Specialty Start Date End Date Ester Cain MD PCP - General 05/05/06 Katherine Keith Md, [facility] 09/07/23 [employer] Operator Relationship Specialty Start Date End Date Ester Cain MD PCP - General 05/05/06 Katherine Keith Md, MD [facility] 09/07/23 [employer] Operator Relationship Specialty Start Date End Date Ester Cain MD PCP - General 05/05/06 Katherine Keith Md, [facility] 09/07/23 [employer] Operator Relationship Specialty Start Date End Date Ester Cain MD PCP - General 05/05/06 Katherine Keith Md, [facility] 09/07/23 [employer] Operator Relationship Specialty Start Date End Date Ester Cain MD PCP - General 05/05/06 Katherine Keith Md, [facility] 09/07/23 [employer] Operator Relationship Specialty Start Date End Date Ester Cain MD PCP - General 05/05/06 Katherine Keith Md, [facility] 09/07/23 [employer] Operator Relationship Specialty Start Date End Date Ester Cain MD PCP - General 05/05/06 Katherine Keith Md, [facility] 09/07/23 [employer] Operator Relationship Specialty Start Date End Date Ester Cain MD PCP - General 05/05/06 Katherine Keith Md, [facility] 09/07/23 [employer] Operator Relationship Specialty Start Date End Date Ester Cain MD PCP - General 05/05/06 Katherine Keith Md, [facility] 09/07/23 [employer] Operator Relationship Specialty Start Date End Date Ester Cain MD PCP - General 05/05/06 Katherine Keith Md, [facility] 09/07/23 [employer] Operator Relationship Specialty Start Date End Date Ester Cain MD PCP - General 05/05/06 Katherine Keith Md, [facility] 09/07/23 [employer] Operator Relationship Specialty Start Date End Date Ester Cain MD PCP - General 05/05/06 Katherine Keith Md, [facility] 09/07/23 [employer] Operator Relationship Specialty Start Date End Date Ester Cain MD PCP - General 05/05/06 Katherine Keith Md, [facility] 09/07/23 [employer] Operator Relationship Specialty Start Date End Date Ester Cain MD PCP - General 05/05/06 Katherine Keith Md, [facility] 09/07/23 [employer] Operator Relationship Specialty Start Date End Date Ester Cain MD PCP - General 05/05/06 Katherine Keith Md, [facility] 09/07/23 [employer] Operator Relationship Specialty Start Date End Date Ester Cain MD PCP - General 05/05/06 Katherine Keith Md, [facility] 09/07/23 [employer] Operator Relationship Specialty Start Date End Date Ester Cain MD PCP - General 05/05/06 Katherine Keith Md, [facility] 09/07/23 Team Status: Inactive Member Role Status Dates Ester Cain MD Primary Care Provider Active Start: November 26, 2023 End: November 26, 2023 Camryn Agustin MD [facility] Attending Provider Active Start: November 26, 2023 End: November 26, 2023 [employer] Operator Relationship Specialty Start Date End Date Ester Cain MD PCP - General 05/05/06 Katherine Keith Md, [facility] 09/07/23 [employer] Operator Relationship Specialty Start Date End Date Ester Cain MD PCP - General 05/05/06 Katherine Keith Md, [facility] 09/07/23 [employer] Operator Relationship Specialty Start Date End Date Ester Cain MD PCP - General 05/05/06 Katherine Keith Md, [facility] 09/07/23 [employer] Operator Relationship Specialty Start Date End Date Ester Cain MD PCP - General 05/05/06 Katherine Keith Md, [facility] 09/07/23 [employer] Operator Relationship Specialty Start Date End Date Ester Cain MD PCP - General 05/05/06 Katherine Keith Md, [facility] 09/07/23 [employer] Operator Relationship Specialty Start Date End Date Ester Cain MD PCP - General 05/05/06 Katherine Keith Md, MD [facility] 09/07/23 [employer] Operator Relationship Specialty Start Date End Date Ester Cain MD PCP - General 05/05/06 Katherine Keith Md, [facility] 09/07/23 [employer] Operator Relationship Specialty Start Date End Date Ester Cain MD PCP - General 05/05/06 Katherine Keith Md, [facility] 09/07/23 [employer] Operator Relationship Specialty Start Date End Date Ester Cain MD PCP - General 05/05/06 Katherine Keith Md, [facility] 09/07/23 [employer] Operator Relationship Specialty Start Date End Date Ester Cain MD PCP - General 05/05/06 Katherine Keith Md, MD [facility] 09/07/23 [employer] Operator Relationship Specialty Start Date End Date Ester Cain MD PCP - General 05/05/06 Katherine Keith Md, MD [facility] 09/07/23 [employer] Operator Relationship Specialty Start Date End Date Ester Cain MD PCP - General 05/05/06 Katherine Keith Md, [facility] 09/07/23 [employer] Operator Relationship Specialty Start Date End Date Ester Cain MD PCP - General 05/05/06 Katherine Keith Md, MD [facility] 09/07/23 [employer] Operator Relationship Specialty Start Date End Date Ester Cain MD PCP - General 05/05/06 Katherine Keith Md, MD [facility] 09/07/23 [employer] Operator Relationship Specialty Start Date End Date Ester Cain MD PCP - General 05/05/06 Katherine Keith Md, MD [facility] 09/07/23 [employer] Operator Relationship Specialty Start Date End Date Ester Cain MD PCP - General 05/05/06 Katherine Keith Md, [facility] 09/07/23 [employer] Operator Relationship Specialty Start Date End Date Ester Cain MD PCP - General 05/05/06 Katherine Keith Md, MD [facility] 09/07/23 [employer] Operator Relationship Specialty Start Date End Date Ester Cain MD PCP - General 05/05/06 Katherine Keith Md, MD [facility] 09/07/23 [employer] Operator Relationship Specialty Start Date End Date Ester Cain MD PCP - General 05/05/06 Katherine Keith Md, MD [facility] 09/07/23 [employer] Operator Relationship Specialty Start Date End Date Ester Cain MD PCP - General 05/05/06 Katherine Keith Md, [facility] 09/07/23 [employer] Operator Relationship Specialty Start Date End Date Ester Cain MD PCP - General 05/05/06 Katherine Keith Md, MD [facility] 09/07/23 [employer] Operator Relationship Specialty Start Date End Date Ester Cain MD PCP - General 05/05/06 Katherine Keith Md, MD [facility] 09/07/23 [employer] Operator Relationship Specialty Start Date End Date Ester Cain MD PCP - General 05/05/06 Katherine Keith Md, MD [facility] 09/07/23 [employer] Operator Relationship Specialty Start Date End Date Ester Cain MD PCP - General 05/05/06 Katherine Keith Md, MD [facility] 09/07/23 [employer] Operator Relationship Specialty Start Date End Date Ester Cain MD [address] [place] [address] PCP - General Family Medicine 09/08/24 Team Status: Inactive Member Role Status Dates Ester Cain MD Primary Care Provider Active Start: September 27, 2024 End: September 27, 2024 Mahamed Gray DPM Attending Provider Active Start: September 27, 2024 End: September 27, 2024 Goals (unrecognized section and content) Goals may be documented in a n alternate section Source Comments (unrecognize d section and content) In the event this informatio n is protected by the Federal Confidentiality of Alcohol and Drug Abuse Patient Records regulations: The Federal rules restrict any use of the information to criminally investigate or prosecute any alcohol or drug abuse patient.TrihealthIn the event this information is protected by the Federal Confidentiality of Alcohol and Drug Abuse Patient Records regulations: The Federal rules restrict any use of the information to criminally investigate or prosecute any alcohol or drug abuse patient.TrihealthIn the event this information is protected by the Federal Confidentiality of Alcohol and Drug Abuse Patient Records regulations: The Federal rules restrict any use of the information to criminally investigate or prosecute any alcohol or drug abuse patient.TrihealthIn the event this information is protected by the Federal Confidentiality of Alcohol and Drug Abuse Patient Records regulations: The Federal rules restrict any use of the information to criminally investigate or prosecute any alcohol or drug abuse patient.TrihealthIn the event this information is protected by the Federal Confidentiality of Alcohol and Drug Abuse Patient Records regulations: The Federal rules restrict any use of the information to criminally investigate or prosecute any alcohol or drug abuse patient.TrihealthIn the event this information is protected by the Federal Confidentiality of Alcohol and Drug Abuse Patient Records regulations: The Federal rules restrict any use of the information to criminally investigate or prosecute any alcohol or drug abuse patient.TrihealthIn the event this information is protected by the Federal Confidentiality of Alcohol and Drug Abuse Patient Records regulations: The Federal rules restrict any use of the information to criminally investigate or prosecute any alcohol or drug abuse patient.TrihealthIn the event this information is protected by the Federal Confidentiality of Alcohol and Drug Abuse Patient Records regulations: The Federal rules restrict any use of the information to criminally investigate or prosecute any alcohol or drug abuse patient.TrihealthIn the event this information is protected by [...] or prosecute any alcohol or drug abuse patient.TrihealthIn the event this information is protected by the Federal Confidentiality of Alcohol and Drug Abuse Patient Records regulations: The Federal rules restrict any use of the information to criminally investigate or prosecute any alcohol or drug abuse patient.TrihealthIn the event this information is protected by the Federal Confidentiality of Alcohol and Drug Abuse Patient Records regulations: The Federal rules restrict any use of the information to criminally investigate or prosecute any alcohol or drug abuse patient.TrihealthIn the event this information is protected by the Federal Confidentiality of Alcohol and Drug Abuse Patient Records regulations: The Federal rules restrict any use of the information to criminally investigate or prosecute any alcohol or drug abuse patient.TrihealthIn the event this information is protected by the Federal Confidentiality of Alcohol and Drug Abuse Patient Records regulations: The Federal rules restrict any use of the information to criminally investigate or prosecute any alcohol or drug abuse patient.TrihealthIn the event this information is protected by the Federal Confidentiality of Alcohol and Drug Abuse Patient Records regulations: The Federal rules restrict any use of the information to criminally investigate or prosecute any alcohol or drug abuse patient.TrihealthIn the event this information is protected by the Federal Confidentiality of Alcohol and Drug Abuse Patient Records regulations: The Federal rules restrict any use of the information to criminally investigate or prosecute any alcohol or drug abuse patient.TrihealthIn the event this information is protected by the Federal Confidentiality of Alcohol and Drug Abuse Patient Records regulations: The Federal rules restrict any use of the information to criminally investigate or prosecute any alcohol or drug abuse patient.TrihealthIn the event this information is protected by the Federal Confidentiality of Alcohol and Drug Abuse Patient Records regulations: The Federal rules restrict any use of the information to criminally investigate or prosecute any alcohol or drug abuse patient.TrihealthIn the event this information is protected by the Federal Confidentiality of Alcohol and Drug Abuse Patient Records regulations: The Federal rules restrict any use of the information to criminally investigate or prosecute any alcohol or drug abuse patient.TrihealthIn the event this information is protected by the Federal Confidentiality of Alcohol and Drug Abuse Patient Records regulations: The Federal rules restrict any use of the information to criminally investigate or prosecute any alcohol or drug abuse patient.TrihealthIn the event this information is protected by the Federal Confidentiality of Alcohol and Drug Abuse Patient Records regulations: The Federal rules restrict any use of the information to criminally investigate or prosecute any alcohol or drug abuse patient.TrihealthIn the event this information is protected by the Federal Confidentiality of Alcohol and Drug Abuse Patient Records regulations: The Federal rules restrict any use of the information to criminally investigate or prosecute any alcohol or drug abuse patient.TrihealthIn the event this information is protected by the Federal Confidentiality of Alcohol and Drug Abuse Patient Records regulations: The Federal rules restrict any use of the information to criminally investigate or prosecute any alcohol or drug abuse patient.TrihealthIn the event this information is protected by the Federal Confidentiality of Alcohol and Drug Abuse Patient Records regulations: The Federal rules restrict any use of the information to criminally investigate or prosecute any alcohol or drug abuse patient.TrihealthIn the event this information is protected by the Federal Confidentiality of Alcohol and Drug Abuse Patient Records regulations: The Federal rules restrict any use of the information to criminally investigate or prosecute any alcohol or drug abuse patient.TrihealthIn the event this information is protected by the Federal Confidentiality of Alcohol and Drug Abuse Patient Records regulations: The Federal rules restrict any use of the information to criminally investigate or prosecute any alcohol or drug abuse patient.TrihealthIn the event this information is protected by the Federal Confidentiality of Alcohol and Drug Abuse Patient Records regulations: The Federal rules restrict any use of the information to criminally investigate or prosecute any alcohol or drug abuse patient.TrihealthIn the event this information is protected by the Federal Confidentiality of Alcohol and Drug Abuse Patient Records regulations: The Federal rules restrict any use of the information to criminally investigate or prosecute any alcohol or drug abuse patient.TrihealthIn the event this information is protected by the Federal Confidentiality of Alcohol and Drug Abuse Patient Records regulations: The Federal rules restrict any use of the information to criminally investigate or prosecute any alcohol or drug abuse patient.TrihealthIn the event this information is protected by the Federal Confidentiality of Alcohol and Drug Abuse Patient Records regulations: The Federal rules restrict any use of the information to criminally investigate or prosecute any alcohol or drug abuse patient.TrihealthIn the event this information is protected by the Federal Confidentiality of Alcohol and Drug Abuse Patient Records regulations: The Federal rules restrict any use of the information to criminally investigate or prosecute any alcohol or drug abuse patient.TrihealthIn the event this information is protected by the Federal Confidentiality of Alcohol and Drug Abuse Patient Records regulations: The Federal rules restrict any use of the information to criminally investigate or prosecute any alcohol or drug abuse patient.TrihealthIn the event this information is protected by the Federal Confidentiality of Alcohol and Drug Abuse Patient Records regulations: The Federal rules restrict any use of the information to criminally investigate or prosecute any alcohol or drug abuse patient.TrihealthIn the event this information is protected by the Federal Confidentiality of Alcohol and Drug Abuse Patient Records regulations: The Federal rules restrict any use of the information to criminally investigate or prosecute any alcohol or drug abuse patient.TrihealthIn the event this information is protected by the Federal Confidentiality of Alcohol and Drug Abuse Patient Records regulations: The Federal rules restrict any use of the information to criminally investigate or prosecute any alcohol or drug abuse patient.TrihealthIn the event this information is protected by the Federal Confidentiality of Alcohol and Drug Abuse Patient Records regulations: The Federal rules restrict any use of the information to criminally investigate or prosecute any alcohol or drug abuse patient.TrihealthIn the event this information is protected by the Federal Confidentiality of Alcohol and Drug Abuse Patient Records regulations: The Federal rules restrict any use of the information to criminally investigate or prosecute any alcohol or drug abuse patient.TrihealthIn the event this information is protected by the Federal Confidentiality of Alcohol and Drug Abuse Patient Records regulations: The Federal rules restrict any use of the information to criminally investigate or prosecute any alcohol or drug abuse patient.TrihealthIn the event this information is protected by the Federal Confidentiality of Alcohol and Drug Abuse Patient Records regulations: The Federal rules restrict any use of the information to criminally investigate or prosecute any alcohol or drug abuse patient.TrihealthIn the event this information is protected by the Federal Confidentiality of Alcohol and Drug Abuse Patient Records regulations: The Federal rules restrict any use of the information to criminally investigate or prosecute any alcohol or drug abuse patient.TrihealthIn the event this information is protected by the Federal Confidentiality of Alcohol and Drug Abuse Patient Records regulations: The Federal rules restrict any use of the information to criminally investigate or prosecute any alcohol or drug abuse patient.TrihealthIn the event this information is protected by the Federal Confidentiality of Alcohol and Drug Abuse Patient Records regulations: The Federal rules restrict any use of the information to criminally investigate or prosecute any alcohol or drug abuse patient.TrihealthIn the event this information is protected by the Federal Confidentiality of Alcohol and Drug Abuse Patient Records regulations: The Federal rules restrict any use of the information to criminally investigate or prosecute any alcohol or drug abuse patient.TrihealthIn the event this information is protected by the Federal Confidentiality of Alcohol and Drug Abuse Patient Records regulations: The Federal rules restrict any use of the information to criminally investigate or prosecute any alcohol or drug abuse patient.TrihealthIn the event this information is protected by the Federal Confidentiality of Alcohol and Drug Abuse Patient Records regulations: The Federal rules restrict any use of the information to criminally investigate or prosecute any alcohol or drug abuse patient.TrihealthIn the event this information is protected by the Federal Confidentiality of Alcohol and Drug Abuse Patient Records regulations: The Federal rules restrict any use of the information to criminally investigate or prosecute any alcohol or drug abuse patient.TrihealthIn the event this information is protected by the Federal Confidentiality of Alcohol and Drug Abuse Patient Records regulations: The Federal rules restrict any use of the information to criminally investigate or prosecute any alcohol or drug abuse patient.TrihealthIn the event this information is protected by the Federal Confidentiality of Alcohol and Drug Abuse Patient Records regulations: The Federal rules restrict any use of the information to criminally investigate or prosecute any alcohol or drug abuse patient.TrihealthIn the event this information is protected by the Federal Confidentiality of Alcohol and Drug Abuse Patient Records regulations: The Federal rules restrict any use of the information to criminally investigate or prosecute any alcohol or drug abuse patient.TrihealthIn the event this information is protected by the Federal Confidentiality of Alcohol and Drug Abuse Patient Records regulations: The Federal rules restrict any use of the information to criminally investigate or prosecute any alcohol or drug abuse patient.TrihealthIn the event this information is protected by the Federal Confidentiality of Alcohol and Drug Abuse Patient Records regulations: The Federal rules restrict any use of the information to criminally investigate or prosecute any alcohol or drug abuse patient.TrihealthIn the event this information is protected by the Federal Confidentiality of Alcohol and Drug Abuse Patient Records regulations: The Federal rules restrict any use of the information to criminally investigate or prosecute any alcohol or drug abuse patient.TrihealthIn the event this information is protected by the Federal Confidentiality of Alcohol and Drug Abuse Patient Records regulations: The Federal rules restrict any use of the information to criminally investigate or prosecute any alcohol or drug abuse patient.TrihealthIn the event this information is protected by the Federal Confidentiality of Alcohol and Drug Abuse Patient Records regulations: The Federal rules restrict any use of the information to criminally investigate or prosecute any alcohol or drug abuse patient.TrihealthIn the event this information is protected by the Federal Confidentiality of Alcohol and Drug Abuse Patient Records regulations: The Federal rules restrict any use of the information to criminally investigate or prosecute any alcohol or drug abuse patient.TrihealthIn the event this information is protected by the Federal Confidentiality of Alcohol and Drug Abuse Patient Records regulations: The Federal rules restrict any use of the information to criminally investigate or prosecute any alcohol or drug abuse patient.TrihealthIn the event this information is protected by the Federal Confidentiality of Alcohol and Drug Abuse Patient Records regulations: The Federal rules restrict any use of the information to criminally investigate or prosecute any alcohol or drug abuse patient.TrihealthIn the event this information is protected by the Federal Confidentiality of Alcohol and Drug Abuse Patient Records regulations: The Federal rules restrict any use of the information to criminally investigate or prosecute any alcohol or drug abuse patient.TrihealthIn the event this information is protected by [...] or prosecute any alcohol or drug abuse patient.TrihealthIn the event this information is protected by the Federal Confidentiality of Alcohol and Drug Abuse Patient Records regulations: The Federal rules restrict any use of the information to criminally investigate or prosecute any alcohol or drug abuse patient.TrihealthIn the event this information is protected by the Federal Confidentiality of Alcohol and Drug Abuse Patient Records regulations: The Federal rules restrict any use of the information to criminally investigate or prosecute any alcohol or drug abuse patient.TrihealthIn the event this information is protected by the Federal Confidentiality of Alcohol and Drug Abuse Patient Records regulations: The Federal rules restrict any use of the information to criminally investigate or prosecute any alcohol or drug abuse patient.TrihealthIn the event this information is protected by the Federal Confidentiality of Alcohol and Drug Abuse Patient Records regulations: The Federal rules restrict any use of the information to criminally investigate or prosecute any alcohol or drug abuse patient.TrihealthIn the event this information is protected by the Federal Confidentiality of Alcohol and Drug Abuse Patient Records regulations: The Federal rules restrict any use of the information to criminally investigate or prosecute any alcohol or drug abuse patient.TrihealthIn the event this information is protected by the Federal Confidentiality of Alcohol and Drug Abuse Patient Records regulations: The Federal rules restrict any use of the information to criminally investigate or prosecute any alcohol or drug abuse patient.TrihealthIn the event this information is protected by the Federal Confidentiality of Alcohol and Drug Abuse Patient Records regulations: The Federal rules restrict any use of the information to criminally investigate or prosecute any alcohol or drug abuse patient.TrihealthIn the event this information is protected by the Federal Confidentiality of Alcohol and Drug Abuse Patient Records regulations: The Federal rules restrict any use of the information to criminally investigate or prosecute any alcohol or drug abuse patient.TrihealthIn the event this information is protected by the Federal Confidentiality of Alcohol and Drug Abuse Patient Records regulations: The Federal rules restrict any use of the information to criminally investigate or prosecute any alcohol or drug abuse patient.TrihealthIn the event this information is protected by the Federal Confidentiality of Alcohol and Drug Abuse Patient Records regulations: The Federal rules restrict any use of the information to criminally investigate or prosecute any alcohol or drug abuse patient.TrihealthIn the event this information is protected by the Federal Confidentiality of Alcohol and Drug Abuse Patient Records regulations: The Federal rules restrict any use of the information to criminally investigate or prosecute any alcohol or drug abuse patient.TrihealthIn the event this information is protected by the Federal Confidentiality of Alcohol and Drug Abuse Patient Records regulations: The Federal rules restrict any use of the information to criminally investigate or prosecute any alcohol or drug abuse patient.TrihealthIn the event this information is protected by the Federal Confidentiality of Alcohol and Drug Abuse Patient Records regulations: The Federal rules restrict any use of the information to criminally investigate or prosecute any alcohol or drug abuse patient.TrihealthIn the event this information is protected by the Federal Confidentiality of Alcohol and Drug Abuse Patient Records regulations: The Federal rules restrict any use of the information to criminally investigate or prosecute any alcohol or drug abuse patient.TrihealthIn the event this information is protected by the Federal Confidentiality of Alcohol and Drug Abuse Patient Records regulations: The Federal rules restrict any use of the information to criminally investigate or prosecute any alcohol or drug abuse patient.TrihealthIn the event this information is protected by the Federal Confidentiality of Alcohol and Drug Abuse Patient Records regulations: The Federal rules restrict any use of the information to criminally investigate or prosecute any alcohol or drug abuse patient.TrihealthIn the event this information is protected by the Federal Confidentiality of Alcohol and Drug Abuse Patient Records regulations: The Federal rules restrict any use of the information to criminally investigate or prosecute any alcohol or drug abuse patient.TrihealthIn the event this information is protected by the Federal Confidentiality of Alcohol and Drug Abuse Patient Records regulations: The Federal rules restrict any use of the information to criminally investigate or prosecute any alcohol or drug abuse patient.TrihealthIn the event this information is protected by the Federal Confidentiality of Alcohol and Drug Abuse Patient Records regulations: The Federal rules restrict any use of the information to criminally investigate or prosecute any alcohol or drug abuse patient.TrihealthIn the event this information is protected by the Federal Confidentiality of Alcohol and Drug Abuse Patient Records regulations: The Federal rules restrict any use of the information to criminally investigate or prosecute any alcohol or drug abuse patient.TrihealthIn the event this information is protected by the Federal Confidentiality of Alcohol and Drug Abuse Patient Records regulations: The Federal rules restrict any use of the information to criminally investigate or prosecute any alcohol or drug abuse patient.TrihealthIn the event this information is protected by the Federal Confidentiality of Alcohol and Drug Abuse Patient Records regulations: The Federal rules restrict any use of the information to criminally investigate or prosecute any alcohol or drug abuse patient.TrihealthIn the event this information is protected by the Federal Confidentiality of Alcohol and Drug Abuse Patient Records regulations: The Federal rules restrict any use of the information to criminally investigate or prosecute any alcohol or drug abuse patient.TrihealthIn the event this information is protected by the Federal Confidentiality of Alcohol and Drug Abuse Patient Records regulations: The Federal rules restrict any use of the information to criminally investigate or prosecute any alcohol or drug abuse patient.TrihealthIn the event this information is protected by the Federal Confidentiality of Alcohol and Drug Abuse Patient Records regulations: The Federal rules restrict any use of the information to criminally investigate or prosecute any alcohol or drug abuse patient.TrihealthIn the event this information is protected by the Federal Confidentiality of Alcohol and Drug Abuse Patient Records regulations: The Federal rules restrict any use of the information to criminally investigate or prosecute any alcohol or drug abuse patient.TrihealthIn the event this information is protected by the Federal Confidentiality of Alcohol and Drug Abuse Patient Records regulations: The Federal rules restrict any use of the information to criminally investigate or prosecute any alcohol or drug abuse patient.TrihealthIn the event this information is protected by the Federal Confidentiality of Alcohol and Drug Abuse Patient Records regulations: The Federal rules restrict any use of the information to criminally investigate or prosecute any alcohol or drug abuse patient.TrihealthIn the event this information is protected by the Federal Confidentiality of Alcohol and Drug Abuse Patient Records regulations: The Federal rules restrict any use of the information to criminally investigate or prosecute any alcohol or drug abuse patient.TrihealthIn the event this information is protected by the Federal Confidentiality of Alcohol and Drug Abuse Patient Records regulations: The Federal rules restrict any use of the information to criminally investigate or prosecute any alcohol or drug abuse patient.[facility] Reason for Visit (unrecogniz ed section and [...] SPI W/SKULL 2/3 VW Katherine Keith MD [address] [place] [address] [facility] [place] [facility] Referral ID Status Reason Start Date Expiration Date V isits Requested Visits Authorized [id number] Closed Auto-Generate d Referral 04/30/2023 05/29/2024 1 1 Reason Comments Radio Main J1 Specialty Diagnoses / Procedures Referred By Contac t Referred To Contact XR IMAGING Diagnoses Spinal stenosis, lumbar region with neurogenic claudication Procedures XR LUMBAR MOTION 4V AP/LAT/ FLEX/EXT RADEX SPINE LUMBOSACRAL MINIMUM 4 VIEWS Alfonso Loyd PA-C [address] [place] [address] [facility] [place] [facility] Referral ID Status Reason Start Date Expiration Date V isits Requested Visits Authorized [id number] Closed Auto-Generate d Referral 03/21/2023 04/19/2024 1 1 Specialty Diagnoses / Procedures Referred By Contac t Referred To Contact CT IMAGING Diagnoses Chronic low back pain, unspecified back pain laterality, unspecified whether sciatica present Procedures CT LUMBAR SPINE WO IVCON CT LUMBAR SPINE W/O CONTRAST MATERIAL Katherine Keith MD [address] [place] [address] [place] [address] Referral ID Status Reason Start Date Expiration Date V isits Requested Visits Authorized [id number] Closed Auto-Generate d Referral 04/30/2023 05/29/2024 1 [...] Authorization Specialty Diagnoses / Procedures Referred By Contac t Referred To Contact XR IMAGING Diagnoses History of laminectomy Degenerative scoliosis in adult patient Procedures XR LUMBAR LIMITED 2V AP/LAT RADEX SPINE LUMBOSACRAL 2/3 VIEWS Alfonso Loyd PA-C [address] [place] [address] [facility] [place] [facility] Referral ID Status Reason Start Date Expiration Date V isits Requested Visits Authorized [id number] Closed Auto-Generate d Referral 07/11/2023 08/09/2024 1 1 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 Comments 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 Onset Date Comments Refill Request 09/21/2023 Reason Comments Established Patient Follow Up Specialty Diagnoses / Procedures Referred By Contac t Referred To Contact MR IMAGING Diagnoses Adverse effect of treatment, sequela Procedures MRI LUMBAR SPINE WO IVCON MRI SPINAL CANAL LUMBAR W/O CONTRAST MATERIAL Katherine Keith MD [id number] [place] [address] Referral ID Status Reason Start Date Expiration Date V isits Requested Visits Authorized [id number] Closed Auto-Generate d Referral 11/12/2023 12/11/2024 1 1 Specialty Diagnoses / Procedures Referred By Contac t Referred To Contact MR IMAGING Diagnoses Adverse effect of treatment, sequela Procedures MRI THORACIC SPINE WO IVCON MRI SPINAL CANAL THORACIC W/O CONTRAST MATRL Katherine Keith MD [phone] [place] [address] Referral ID Status Reason Start Date Expiration Date V isits Requested Visits Authorized [id number] Closed Auto-Generate d Referral 11/12/2023 12/11/2024 1 1 Specialty Diagnoses / Procedures Referred By Contac t Referred To Contact CT IMAGING Diagnoses Acute low back pain, unspecified back pain laterality, unspecified whether sciatica present Procedures CT LUMBAR SPINE WO IVCON CT LUMBAR SPINE W/O CONTRAST MATERIAL Katherine Keith MD [phone] [facility] [place] [address] Referral ID Status Reason Start Date Expiration Date V isits Requested Visits Authorized [id number] Closed Auto-Generate d Referral 11/12/2023 12/11/2024 1 1 Reason Onset Date Comments [facility] 01/14/2024 Specialty Diagnoses / Procedures Referred By Contac t Referred To Contact [facility] Diagnoses Adverse effect of treatment, sequela Procedures [facility](NEURO/NI) NERVE CONDUCTION STUDIES 9-10 STUDIES Katherine Keith MD [address] [phone] [facility] [place] [address] [place] [address] Referral ID Status Reason Start Date Expiration Date V isits Requested Visits Authorized [id number] Closed Auto-Generate d Referral 01/13/2024 03/09/2024 1 1 Reason Comments Radiology MRI Specialty Diagnoses / Procedures Referred By Contac t Referred To Contact MR IMAGING Diagnoses Spinal stenosis of cervical region Procedures MRI CERVICAL SPINE WO IVCON MRI SPINAL CANAL CERVICAL W/O CONTRAST CHRISTIANL Alfonso Loyd PA-C [phone] [facility] [place] [address] Referral ID Status Reason Start Date Expiration Date V isits Requested Visits Authorized [id number] Closed Auto-Generate d Referral 02/21/2024 03/09/2024 1 1 Reason Comments Transition Of Care Reason Comments Post Op Reason Onset Date Comments Refill Request 06/21/2024 Reason Onset Date Comments Refill Request 06/28/2024 FOR RECORDS PERTAINING TO PATIENTS WHO ARE [...] BE BASED ON THE PRIMARY CLINICAL RECORDS. [facility] [employer] [facility]. provides no warranty or guarantee of the accuracy or completeness of information in this document.
--- OUTSIDE RECORDS SUMMARY | 2024-09-28 06:54 | XMS_ITS | Clinical Summary ---
Author Organization [facility] Address [address] [place], [place] [address] Care Team Providers Care Pilot Submersible Name Role Phone Devon Craven MD Primary Care Provider [phone] Jones Keith Md MD Unavailable Unavailable Allergies Active Allergy Reactions Criticality Noted Date Comments Penicillins Rash 07/04/2006 Methocarbamol Intolerance 11/12/2023 Medications furosemide (LASIX) 40 mg tablet Take 40 mg by mouth once daily. Active acetaminophen (TYLENOL) 325 mg tablet 2 tablets by ORAL/FEEDING TUBE route every 6 hours as needed for pain. 4 Active carvedilol (COREG) 25 mg tablet Take 1 tablet by mouth two times a day with meals. 60 tablet 4 Active lidocaine (LIDODERM) 5 % Take as instructed on package 10 Patch 1 4 Active pregabalin (LYRICA) 50 mg capsuleIndication s:Adverse effect of treatment, sequela Take 2 capsules by mouth three times a day for 90 days. 180 capsule 2 5 Active senna-docusate (SENNA-S) 8.6-50 mg per tablet Take 2 tablets by mouth two times a day as needed for constipation. 20 tablet 5 Active naloxone 4 mg/actuation nasal spray (NARCAN)Indicatio ns:Acute postoperative pain,S/P cervical spinal fusion,Cervical spondylosis with myelopathy Use 1 spray in one nostril as needed for overdose. May repeat every 2 to 3 min in alternating nostrils until medical assistance is available 2 Each 5 Active aspirin, enteric coated (ASPIRIN, ENTERIC COATED) 81 mg EC tablet Take 1 tablet by mouth once daily. 5 Active Active Problems Problem Noted Date Diagnosed Date S/P cervical spinal fusion 06/08/2024 Assessment & Plan (06/08/2024 10:15 AM EDT): Assessment: s/p cervical spinal fusion PLAN: -PT/OT continue -Out of bed to chair for meals. -Ambulate pt 3-4 x daily as able. -Monitor: signs, symptoms, disease progression, disease regression. -Evaluate: test results, medication effectiveness, response to treatment. -Pain control: analgesics titrated per consultation with Jones Hogue MD -Plan discussed with Jones Hogue MD Acute postoperative pain 06/08/2024 Assessment & Plan (06/08/2024 10:15 AM EDT): Assessment: Acute postop pain PLAN: -PRN analgesics. -PT/OT continue -Monitor: signs, symptoms, disease progression, disease regression. -Evaluate: test results, medication effectiveness, response to treatment. -Pain control: analgesics titrated per consultation with Jones Hogue MD -Plan discussed with Jones Hogue MD Elevated troponin 06/08/2024 Assessment & Plan (06/08/2024 2:03 PM EDT): Assessment: Elevated troponin PLAN: -f/u on Cards recs. Appreciate your assistance. -TTE as an outpatient -ASA 81 mg PO daily. -Monitor: signs, symptoms, disease progression, disease regression. -Evaluate: test results Assessment & Plan (06/08/2024 10:16 AM EDT): Assessment: Elevated troponin PLAN: -f/u on Cards recs. Appreciate your assistance. -TTE -Monitor: signs, symptoms, disease progression, disease regression. -Evaluate: test results Cervical spondylosis with myelopathy 06/03/2024 Assessment & Plan (06/08/2024 10:15 AM EDT): Assessment: Cervical spondylosis with myelopathy PLAN: -PT/OT continue -Out of bed to chair for meals. -Ambulate pt 3-4 x daily as able. -Monitor: signs, symptoms, disease progression, disease regression. -Evaluate: test results, medication effectiveness, response to treatment. -Pain control: analgesics titrated per consultation with Jones Hogue MD -Plan discussed with Jones Hogue MD -DC planning. Planned Date of Discharge: Within 24 hours Discharge Disposition: Home Assessment & Plan (06/07/2024 12:05 PM EDT): Assessment: S/p C3, C7 dome laminectomy, C4-6 laminoplasty PLAN: -Pain control: oxycodone decreased to 5mg q4h prn -PT/OT rec outpatient PT -Upright x-rays reviewed with Dr. Keith. Recommend patient wear a [place] cervical collar for 4 weeks after surgery -DVT ppx: continue IPCs, heparin SQ beginning POD2 -OOB for meals, mobilize at least 3x daily -Bowel regimen -Anticipate d/c tomorrow -D/w Dr. Keith Assessment & Plan (06/04/2024 12:55 PM EDT): Assessment: S/p C3, C7 dome laminectomy, C4-6 laminoplasty PLAN: -Pain control: continue present regimen -Trend drain output -PT/OT rec outpatient PT -Upright x-rays reviewed with Dr. Keith. Recommend patient wear a [place] J cervical collar for 4 weeks after surgery -DVT ppx: continue IPCs, heparin SQ beginning POD2 -OOB for meals, mobilize at least 3x daily -Bowel regimen -Anticipate d/c in 1-2 days -D/w Dr. Keith Assessment & Plan (06/03/2024 12:29 PM EDT): Assessment: S/p C3, C7 dome laminectomy, C4-6 laminoplasty PLAN: -Pain control: continue present regimen -Trend drain output -PT/OT evals pending -Upright x-rays when able -DVT ppx: continue IPCs, heparin SQ beginning POD2 -OOB for meals, mobilize at least 3x daily -Bowel regimen -Anticipate d/c in 2-3 days -D/w Dr. Keith Low back pain 10/02/2023 Assessment & Plan (10/03/2023 11:16 AM EDT): lumbar radiculopathy S/P Right L4/5 facetectomy -Activity: WBAT, no heavy bending lifting or twisting - Antibiotics x 24 hrs periop - George: remove POD1 if present - Pain - PO and IV breakthrough - DVT prophylaxis - SCDs, SQH BID starting POD2 - H/H stable, no indication for transfusion at this time - PT/OT, appreciate recs for discharge -To follow up with neurology outpatient for foot drop after discharge Intractable pain 09/08/2023 Assessment & Plan (09/10/2023 12:52 PM EDT): Assessment: POA PLAN: -Continued RLE pain, improved with medication adjustments -Continue gabapentin 300 tida -Continue zanaflex -Continue prn oxycodone Edema of both lower extremities 09/08/2023 Localized swelling of lower extremity 09/08/2023 Pain and swelling of lower extremity 09/08/2023 Assessment & Plan (09/10/2023 12:51 PM EDT): Assessment: POA PLAN: -DVT scan negative -Continue JULIA hose Scoliosis of lumbar region d ue to degenerative disease of spine in adult 08/20/2023 Assessment & Plan (08/22/2023 10:36 AM EDT): Assessment: S/p L2-5 OLIF and percutaneous instrumentation PLAN: -CT and MRI of lumbar spine reviewed -Concern for possible stretch injury from L4-5 cage placement. -48 hour course of dex completed -Pain control: continue present regimen -PT/OT rec HHC -Upright x-rays when able -DVT ppx: continue IPCs, heparin SQ bid -OOB for meals, mobilize at least 3x daily -Bowel regimen -Discharge today with plan for close follow-up for continued monitoring of R foot drop symptoms -D/w Dr. Keith Assessment & Plan (08/21/2023 10:30 AM EDT): Assessment: S/p L2-5 OLIF and percutaneous instrumentation [...] d/c in 1-2 days -D/w Dr. Keith Assessment & Plan (08/20/2023 11:02 AM EDT): Assessment: S/p L2-5 OLIF and percutaneous instrumentation [...] at least 3x daily -Bowel regimen -D/c george catheter -Anticipate d/c in 2-3 days -D/w Dr. Keith Foot drop, right foot 08/20/2023 Assessment & Plan (08/22/2023 10:37 AM EDT): Assessment: New RLE foot drop postoperatively PLAN: -CT lumbar reviewed, hardware in good position -Concern for possible stretch injury from L4-5 cage placement. -48 hour course of dex completed -Plan for discharge today with close follow-up for continued monitoring of R foot drop symptoms Assessment & Plan (08/21/2023 10:30 AM EDT): Assessment: New RLE foot drop postoperatively PLAN: -CT lumbar reviewed, hardware in good position -Concern for possible stretch injury from L4-5 cage placement. -Dex 4mg q6h x 24 hours -SSI, PPI while on steroids -Monitor for improvement in R foot drop Assessment & Plan (08/20/2023 11:04 AM EDT): Assessment: New RLE foot drop postoperatively PLAN: -CT lumbar reviewed, hardware in good position -Concern for possible stretch injury from L4-5 cage placement. -Dex 10mg x1, followed by 4mg q6h -SSI, PPI while on steroids -Monitor for improvement in R foot drop S/P lumbar fusion 08/19/2023 Assessment & Plan (09/10/2023 12:51 PM EDT): Assessment: S/p L2-5 OLIF on 08/18 PLAN: -Pain control: continue present regimen -PT/OT rec C -MRI today -DVT ppx: continue IPCs, heparin SQ bid -OOB for meals, mobilize at least 3x daily -Bowel regimen -Likely d/c following MRI pending imaging results -D/w Dr. Keith Assessment & Plan (08/22/2023 10:36 AM EDT): Assessment: S/p L2-5 OLIF with perc screws PLAN: -See degenerative scoliosis POC Assessment & Plan (08/21/2023 10:30 AM EDT): Assessment: S/p L2-5 OLIF with perc screws PLAN: -See degenerative scoliosis POC Assessment & Plan (08/20/2023 11:03 AM EDT): Assessment: S/p L2-5 OLIF with perc screws PLAN: -See degenerative scoliosis POC Primary hypertension 08/06/2023 Assessment & Plan (06/08/2024 10:16 AM EDT): Assessment: HTN PLAN: -Continue home FUROSEMIDE 40 MG TABLET Take 40 mg by mouth once daily. -Continue home CARVEDILOL 25 MG TABLET PO bid -Monitor: signs, symptoms, disease progression, disease regression. -Evaluate: test results, medication effectiveness, response to treatment. Assessment & Plan (06/07/2024 12:05 PM EDT): Assessment: POA PLAN: -Resume home coreg and furosemide Assessment & Plan (06/04/2024 12:54 PM EDT): Assessment: POA PLAN: -Resume home coreg and furosemide Assessment & Plan (06/03/2024 12:29 PM EDT): Assessment: POA PLAN: -Resume home coreg and furosemide Assessment & Plan (10/03/2023 11:16 AM EDT): Assessment: HTN PLAN: -Continue home CARVEDILOL 12.5 MG TABLET Take 12.5 mg by mouth two times a day with meals. FUROSEMIDE 40 MG TABLET Take 40 mg by mouth once daily. -Monitor: signs, symptoms, disease progression, disease regression. -Evaluate: test results, medication effectiveness, response to treatment. Assessment & Plan (09/10/2023 12:51 PM EDT): Assessment: POA PLAN: -Continue present regimen Assessment & Plan (08/22/2023 10:36 AM EDT): Assessment: POA PLAN: -Resume coreg Assessment & Plan (08/21/2023 10:30 AM EDT): Assessment: POA PLAN: -Resume coreg Assessment & Plan (08/20/2023 11:03 AM EDT): Assessment: POA PLAN: -Resume coreg History of penicillin allergy 08/06/2023 SVT (supraventricular tachycardia) 08/06/2023 Assessment & Plan (06/07/2024 12:05 PM EDT): Assessment: POA PLAN: -Resume home coreg Assessment & Plan (06/04/2024 12:54 PM EDT): Assessment: POA PLAN: -Resume home coreg Assessment & Plan (06/03/2024 12:29 PM EDT): Assessment: POA PLAN: -Resume home coreg Assessment & Plan (08/22/2023 10:35 AM EDT): Assessment: POA PLAN: -Resume home coreg Assessment & Plan (08/21/2023 10:29 AM EDT): Assessment: POA PLAN: -Resume home coreg Assessment & Plan (08/20/2023 11:00 AM EDT): Assessment: POA PLAN: -Resume home coreg Benign neoplasm of skin, site unspecified 2008 Other seborrheic keratosis 09/08/2008 BENIGN NEOPLASM SKIN NEC-exam 08/05/2008 Neoplasm of uncertain behavior of skin 9 Encounters Date Type Department Care Team Description 07/19/2024 [facility] [place] [facility] [place] [address] [id number] Vivian Collins PA-C Therapy 07/15/2024 9:00 AM EDT [facility] Spine Surgery [address] [facility] [address] [id number] Vivian Collins PA-C S/P cervical spinal fusion (Primary Dx) 06/29/2024 9:30 AM EDT [facility] [address] [place], [place] [phone] Vivian Collins PA-C Spondylolysis, lumbar region (Primary Dx); S/P cervical spinal fusion 06/29/2024 [facility] [place] [facility] [address] [place] [address] Vivian Collins PA-C X-ray scheduling 06/29/2024 [facility] [address] [place], [place] [phone] Maco Tse MD Appointment Cancellation Request 06/29/2024 Patient [facility] [address] [place], [place] [phone] Provider, [facility] Appointment Cancellation Request 06/29/2024 [facility] [address] [place], [place] [phone] Provider, [facility]cf Appointment Cancellation Request from Last 3 Months Family History Medical History Relation Comments Cancer Father malignant melano ma Relation Status Comments Father Social History Tobacco Use Types Packs/Day Years Used Date Smoking Tobacco: Never Smokeless Tobacco: Former Chew Quit: 1999 Tobacco Cessation:Counseling Given: Not Answered Alcohol Use Standard Drinks/Week Comments Never 0 (1 standard drink = 0.6 oz pur e alcohol) [facility] Utilities Answer Date Recorded In [...] Data from: https://www.neighborhoodatlas.medicine.[facility].edu/. Last address used for calculation [address] 08/06/2023 Sex and Gender Information Value Date Recorded Sex Assigned at Male 03/20/2023 4:19 AM EST Legal Sex Male 10:36 AM EST Gender Identity Male 03/20/2023 4:19 AM EST Sexual Orientation Straight 03/20/2023 4: 19 AM EST Last Filed Vital Signs Vital Sign Reading Time Taken Comments Blood Pressure 141/79 06/16/2024 9:53 AM EDT Pulse 59 06/16/2024 9:53 AM EDT Temperature 36.8 C (98.3 F) 06/16/2024 9:53 AM EDT Respiratory Rate 16 06/08/2024 1:48 PM EDT Oxygen Saturation 97% 06/16/2024 9:53 AM EDT Inhaled Oxygen Concentration - - Weight 93 kg (205 lb) 05/12/2024 11:13 AM EST Height 182.9 cm (6') 05/12/2024 11:13 AM EST Body Mass Index 27.8 05/12/2024 11:13 AM EST Plan of Treatment Health Maintenance Due Date Last Done Comments Annual PCP Team Chronic Dise ase Visit 1975 Anxiety Screening 1975 Depression Screening 1975 Hepatitis C Screening 1975 DTaP,Tdap,Td Vaccine (1 - Tdap) [address] Colonography 2002 Cologuard (FIT-DNA) 2002 Colonoscopy 2002 Colorectal Cancer Screening 2002 Fecal Occult Blood 2002 Sigmoidoscopy 2002 Pneumococcal Vaccine: 50+ (1 of 1 - PCV) 2007 Shingrix Vaccine (1 of 2) 2007 RSV Vaccine (1 - Risk 60-74 years 1-dose series) 2017 Covid-19 Vaccine (4 - 2023-2 5 season) 2023 12/29/2020, 06/09/2020, 05/19/2020 Advance Directive Discussion 03/10/2024 Influenza Vaccine (#1) 2024 12/29/2020 Prostate Cancer Screening Discussion 12/28/2026 12/28/2021 Diabetes Screening 06/09/2027 06/08/2024, 0 06/07/2024, 06/06/2024, Additional history exists Medical Devices Implanted Type Area Personnel Specialist Device Identifier Shelf Expiration Date Model / Serial / Lot Signify Gel Instafill Cartridge 5cc [id number] Implanted:Qty: 1 on 08/19/2023 at [facility] Accessories N/A: Spine - Lumbar [employer] 04/28/2027 [id number] S / / [id number] Creo Mis Locking Cap Implanted:Qty: 8 on 08/19/2023 at [facility] Accessories N/A: Spine - Lumbar [employer] 1134.0010 / / Graft Infuse 20ga Medium Bovine Collagen Rhbmp-2 2x1in Bone Vial Absorbable - [id number] Implanted:Qty: 1 on 08/19/2023 by Jones Keith MD at [facility] Bone N/A: Spine - Lumbar [employer]K 04/10/2025 [id number] / / [id number] C Signify Gel Instafill Cartridge 5cc [id number] Implanted:Qty: 1 on 08/19/2023 at [facility] Bone N/A: Spine - Lumbar [employer] 04/28/2027 8112.5105 S / / [id number] Plate Canopy 9mm Bone Shelf Inline Spine - [id number] Implanted:Qty: 3 on 06/02/2024 at [facility] Plate N/A: Spine - Cervical [employer] 1102.3009 / / Creo Mis 5.5mm Curved Asa Ti Alloy 10cm Implanted:Qty: 1 on 08/19/2023 at [facility] Asa N/A: Spine - Lumbar [employer] 1134.7100 / / Creo Mis 5.5mm Curved Asa Ti Alloy 11cm Implanted:Qty: 1 on 08/19/2023 at [facility] Asa N/A: Spine - Lumbar [employer] 1134.7110 / / [id number] Implanted:Qty: 1 on 08/19/2023 at [facility] Screw N/A: Spine - Lumbar [employer] 1134.1445 / / 5.0x45 Implanted:Qty: 1 on 08/19/2023 at [facility] Screw N/A: Spine - Lumbar [employer] 1134.1445 / / Creo One Robotic Modular Screw 6.5mm X 50mm Implanted:Qty: 2 on 08/19/2023 at [facility] Screw N/A: Spine - Lumbar [employer] 1134.1650 / / Creo One Robotic Modular Screw 6.5mm X 55mm Implanted:Qty: 4 on 08/19/2023 at [facility] Screw N/A: Spine - Lumbar [employer] 1134.1655 / / Screw Canopy 2.6mm 4mm Bone Self Drill Laminoplasty Spine - [id number] Implanted:Qty: 5 on 06/02/2024 at [facility] Screw N/A: Spine - Cervical [employer] 1102.6004 / / Canopy 2.6mm Screw Self-Drilling 6mm Implanted:Qty: 6 on 06/02/2024 at [facility] Screw N/A: Spine - Cervical [employer] 1102.6006 / / Bilat Iol 11/2022 Eye - Cornea Spacer Rise-L 3d Lordotic [id number] Spinal Nonsterile Implanted:Qty: 1 on 08/19/2023 at [facility] N/A: Spine - Lumbar [employer] 193.506 / / Spacer Rise-L 3d Lordotic [id number] Spinal Nonsterile Implanted:Qty: 2 on 08/19/2023 at [facility] N/A: Spine - Lumbar [employer] 193.505 / / Procedures Procedure Name Priority Date/Time Associated Diagnosis Comments XR OUTSIDE CD DICOM IMPORT 06/29/2024 COMPREHENSIVE METABOLIC PANEL Routine 06/08/2024 6:26 AM EDT from Last 3 Months or Most Recently Relevant to Health Maintenance Results * OT-XR CERVICAL SPINE 2-3V IMPORT (06/29/2024) Anatomical Region Laterality Modality Other 06/29/2024 Narrative 07/01/2024 4:06 AM EDT Images were obtained outside of [facility] Procedure Note Provider, f Imaging [facility] - 07/01/2024 Images were obtained outside of [facility] us Ccf Provider RADIOLOGY Final Result * (ABNORMAL) COMPREHENSIVE METABOLIC PANEL (06/08/2024 6:26 AM EDT) Pathologist [facility] Protein, Total 6.1(L) 6.3 - 8.0 g/dL 06/08/2024 9:32 AM EDT [facility] Albumin 3.5(L) 3.9 - 4.9 g/dL 06/08/2024 9:32 AM [facility] Calcium, Total 9.5 8.5 - 10.2 mg/dL 06/08/2024 9:32 AM [facility] Bilirubin, Total 0.8 0.2 - 1.3 mg/dL 06/08/2024 9:32 AM [facility] Alkaline Phosphatase 80 38 - 113 U/L 06/08/2024 9:32 AM [facility] AST 25 14 - 40 U/L 06/08/2024 9:32 AM [facility] Comment:Results may be false ly increased due to interference from hemolysis. Suggest reorder as clinically indicated. ALT 10 10 - 54 U/L 06/08/2024 9:32 AM [facility] Glucose 90 74 - 99 mg/dL 06/08/2024 9:32 AM [facility] Comment: The [place] Diabetes Association (ADA) provides guidance for cutoff [...] Standards of Medical Care in Diabetes 2016, [place] Diabetes Association. Diabetes Care. 2016.39(Suppl 1). BUN 16 9 - 24 mg/dL 06/08/2024 9:32 AM [facility] Creatinine 0.76 0.73 - 1.22 mg/dL 06/08/2024 9:32 AM [facility] Sodium 143 136 - 144 mmol/L 06/08/2024 9:32 AM [facility] Potassium 4.2 3.7 - 5.1 mmol/L 06/08/2024 9:32 AM [facility] Chloride 106 98 - 107 mmol/L 06/08/2024 9:32 AM [facility] CO2 24 22 - 30 mmol/L 06/08/2024 9:32 AM EDT [facility] Anion Gap 13 8 - 15 mmol/L 06/08/2024 9:32 AM EDT [facility] Estimated Glomerular Filtration Rate 99 >=60 mL/min/1.7 3m 06/08/2024 9:32 AM EDT [facility] Comment:Estimated Glomerular Filtration Rate (eGFR) is calculated using the 2020 CKD-EPI creatinine equation. This equation utilizes serum creatinine, sex, and age as parameters. The creatinine assay has traceable calibration to isotope dilution- mass spectrometry. Refer to KDIGO guidelines for clinical interpretation. In patients with unstable renal function, e.g. those with acute kidney injury, the eGFR may not accurately reflect actual GFR. Blood BLOOD SPECIMEN / Unknown Venipuncture / Unknown 06/08/2024 6:26 AM EDT 06/08/2024 7:[address] ANESTHESIA DIRECTOR.[facility] Final Result [facility] [address] [place] [address], from Last 3 Months or Most Recently Relevant to Health Maintenance Insurance [employer] Advance Directives * Full Code (Latest Code Status on File) Date Activated Date Inactivated Comments 09/08/2023 1:22 AM 09/10/2023 7:51 PM Question Answer Comments Full Code Order Discussed With: Patient Care Teams Pilot Submersible Relationship Specialty Start Date End Date Devon Craven MD PCP - General 05/05/06 Jones Keith Md, Spine Health 09/07/23
--- OUTSIDE RECORDS SUMMARY | 2024-09-28 06:54 | XMS_ITS | Encounter Summary ---
Author Organization [facility] Address [address] [place] [address] Care Team Providers Care Steel Engraver Name Role Phone Devon Craven MD Primary Care Provider [phone] Jones Keith Md MD Unavailable Unavailable Source Comments In the event this information is protected by the Federal Confidentiality of Alcohol and Drug AbusePatient Records regulations: The Federal rules restrict any use of the information to criminally investigate or prosecute any alcohol or drug abuse patient.[facility] Reason for Visit * Reason Onset Date Comments Refill Request 11/11/2023 Encounter Details Date Type Department Care Team (Late st Contact Info) Description 11/11/2023 Refill [facility] [place] [address] [id number] Vivian Collins PA-C [address] [place] [address] Refill Request Social History Tobacco Use Types Packs/Day Years Used Date Smoking Tobacco: Never Smokeless Tobacco: Former Chew Quit: 1999 Alcohol Use Standard Drinks/Week Comments Never 0 (1 standard drink = 0.6 oz pur e alcohol) [facility] Utilities Answer Date Recorded In [...] is lower risk 4 08/06/2023 Data from: https://www.neighborhoodatlas.medicine.[facility].edu/. Last address used for calculation [...] Telephone Encounter - Melody Castaneda RN - 11/12/2023 3:58 PM EDT Patient was seen in clinic and medication was refilled documented in this encounter Plan of Treatment Not on file documented as of this encounter Visit Diagnoses Diagnosis Post-op pain Other acute postoperative pain documented in this encounter Care Teams Steel Engraver Relationship Specialty Start Date End Date Devon Craven MD PCP - General 05/05/06 Jones Keith Md, MD [facility] 09/07/23 documented as of this encounter
[2024-09-28 07:06] LABS: Hematocrit 40.9 % (42.0-54.0); Hemoglobin 13.9 g/dL (14.0-18.0); Immature Granulocytes Abs Auto 0.05 10^3/uL (0.00-0.03); Immature Granulocytes Pct Auto 0.8 % (0.0-0.5); Lymphocytes Absolute Auto 2.0 10^3/uL (1.2-3.8); Mean Corpuscular HGB Conc 34.0 g/dL (29.9-35.2); Mean Corpuscular Hemoglobin 31.2 pg (25.9-34.0); Mean Corpuscular Volume 91.7 fL (80.0-94.0); Platelet Count 301 10^3/uL (150-450); Red Blood Count 4.46 10^6/uL (4.70-6.10); White Blood Count 6.3 10^3/uL (4.0-11.0)
[2024-09-28 07:25] LABS: Alanine Aminotransferase 29 U/L (16-63); Albumin Globulin Ratio 1.4; Albumin Level 3.8 g/dL (3.4-5.0); Alkaline Phosphatase 68 U/L (46-116); Anion Gap 12.8; Aspartate Amino Transferase 29 U/L (15-37); Blood Urea Nitrogen 26.0 mg/dL (7.0-18.0); Calcium 9.5 mg/dL (8.5-10.1); Carbon Dioxide 27.9 mmol/L (21.0-32.0); Chloride 105 mmol/L (98-107); Estimated GFR (African America >60 (>=60 mL/min/1.73m^2); Estimated GFR (Non-African Ame >60 (>=60 mL/min/1.73m^2); Globulin 2.8 g/dL; Glucose 96 mg/dL (74-106); Potassium 4.7 mmol/L (3.5-5.1); Sodium 141 mmol/L (136-145); Total Protein 6.6 g/dL (6.4-8.2)
[2024-09-28 07:59] LABS: Iron 111.0 ug/dL (65.0-175.0)
== END 2024-09-28 06:48 | disposition home or self-care (01) ==
LOC: LAB 06:51
PROVIDERS: PCP Family Medicine; Visit Provider Family Medicine
DX: R73.09 Other abnormal glucose (principal); D64.9 Anemia, unspecified
CPT/HCPCS: 36415; 80053; 83036; 83540; 85025

== ENCOUNTER 2024-10-18 08:47 | Outpatient (OUT) | payer OTHER, SELFPAY ==
--- NOTE | 2024-10-18 09:18 | CA_ITS ---
Patient Name: BRADEN PAYNE MR#: [id number] : 1955 Exam Date: 10/18/2024 Ordering Doctor: DR ESTER CAIN . ECHOCARDIOGRAM REPORT PROCEDURE: CA ECHO DOPPLER COMPLETE INDICATIONS: Edema COMPARISON: None. DESCRIPTION: COMPLETE ECHOCARDIOGRAM Real-time transthoracic echocardiography with 2D, M-mode, spectral and color flow Doppler performed. QUALITY: Technical quality was good. LEFT VENTRICLE: Normal chamber size. Borderline left ventricular hypertrophy. Global left ventricular systolic function is normal. LV EF: Estimated left ventricular ejection fraction is 70%. DIASTOLIC: Normal diastolic function. ATRIAL SEPTUM: LEFT ATRIUM: Moderate dilatation. RIGHT ATRIUM: Moderate dilatation. RIGHT VENTRICLE: Normal chamber size. Normal right ventricular systolic function. TRICUSPID VALVE: Normal mobility and thickness. No stenosis with trivial regurgitation. No evidence of pulmonary hypertension. RVSP 31 mmHg MITRAL VALVE: Normal mobility and thickness. No evidence of mitral valve stenosis. Mild mitral annular calcification. Trivial mitral regurgitation. AORTIC VALVE: Normal trileaflet appearance. No visible sclerosis. Normal leaflet mobility. No evidence of aortic valve stenosis. No aortic regurgitation. AORTIC ROOT: Normal diameter and appearance, measuring 3.6 cm. The ascending aorta measures 3.6 cm. PULMONIC VALVE: Normal thickness and mobility. No stenosis. Trivial regurgitation. PERICARDIUM: No evidence of pericardial effusion. IVC: Collapses with inspirations. Normal size. PLEURA: CONCLUSION: 1. Borderline left ventricular hypertrophy with normal systolic function. Estimated LVEF is 70%. 2. Normal right ventricular size and systolic function. 3. Normal diastolic function. 4. Moderate biatrial dilatation. 5. No significant valvular dysfunction. 6. Normal right-sided pressures. Adult Echocardiography Procedure Report Left Ventricle LVEDD (3.7 - 5.6 cm): 4.82 cm LVESD (2.2 - 4.0 cm): 3.25 cm LVIVS thickness (0.6 - 1.2 cm): 1.14 cm LVPW thickness (0.5 - 1.0 cm): 0.96 cm e': 0.10 m/s E - e': 7.11 LVOT Max Gradient: 3.97 mm[Hg] LVOT Area (cm2): 1.00 m/s Peak Velocity (LVOT): 1.00 m/s Mean Velocity (LVOT): 0.56 m/s LVOT Diameter 2.31 cm Left Ventricular Ejection Fraction: 70 % Left Atrium LA Volume Index (2D A2C): 58.87 ml/m2 Left Atrium Systolic Dimension: 5.17 cm Mitral Valve MV E to A Ratio: 0.77 Mitral Valve A-Wave Peak Velocity: 0.90 m/s Mitral Valve E-Wave Peak Velocity: 0.69 m/s Right Ventricle RV Internal Diastolic Dimension: 3.72 cm Aorta AO Root Diam: 3.61 cm Ascending Ao Diam: 3.56 cm Aortic Valve AoV Area (Peak Bladimir): 3.47 cm2, 3.47 cm2 AoV Area (VTI): 3.59 cm2, 3.59 cm2 Peak Velocity(Antegrade Flow): 1.20 m/s Peak Gradient(Antegrade Flow): 5.76 mm[Hg] Mean Velocity(Antegrade Flow): 0.77 m/s Mean Gradient(Antegrade Flow): 2.81 mm[Hg] Velocity Time Integral: 28.07 cm Tricuspid Valve Peak Velocity (Regurgitant Flow): 2.12 m/s, 2.30 m/s, 2.09 m/s Pulmonic Valve Peak Velocity: 0.82 m/s Peak Gradient: 2.47 mm[Hg], 2.93 mm[Hg] Right Atrium Right Atrium Systolic Pressure: 75.92 ml, 75.92 ml Dictated by: Tobi Mccullough M.D. on 10/18/2024 at 18:58 Approved by: Tobi Mccullough M.D. on 10/18/2024 at 19:01
== END 2024-10-18 08:48 | disposition home or self-care (01) ==
PROVIDERS: PCP Family Medicine; Visit Provider Family Medicine
DX: R60.9 Edema, unspecified (principal)
CPT/HCPCS: 93306

== ENCOUNTER 2024-11-03 12:46 | Outpatient (OUT) | payer OTHER, SELFPAY ==
--- OUTSIDE RECORDS SUMMARY | 2024-10-11 05:00 | XMS_ITS ---
Author Organization [facility] in [place] Address [address] [place] [address] Care Team Providers Care Pump House Engineer Name Role Phone Micheal Craven Primary Care Provider [phone] Allergies Allergen (clinical drug ingredient) Drug/Non Drug Allergy documented on EMR Reaction Allergy Type Onset Date Status methocarbamol Robaxin Unknown Drug Allergy Act samy Penicillin hives Drug Allergy Active REASON FOR VISIT Presents to office alone asking for his case to be reviewed and get a letter for disability, b/p very high today Medications Medication SIG (Take, Route, Frequency, Duration) Notes Start Date End Date Status Lisinopril 10 MG 1 tablet Orally Once a day for 30 days 10/11/2024 Active tiZANidine HCl 4 MG TAKE 2 TABLETS BY [facility] ONCE DAILY AT BEDTIME for 90 Active Cialis 5 MG 1 tables Orally jona y for 30 days 12/22/2023 Active Ferrous Sulfate 325 (65 Fe) MG 1 tablet Orally bid for 30 days 07/06/2024 Active Coreg 25 MG 1 tablet with food O rally Twice a day for 30 days 10/11/2024 Active Magnesium 400 MG 1 tablet Orally once daily Active oxyCODONE HCl 5 MG 1 tablets Orally janeth ry 4 hours for 14 days 10/11/2024 Active Social History Tobacco Use: Social History [...] Problem Status W/U Status Risk Notes Problem Lumbar radiculopathy ([id number]) Lumbar radiculopathy (M54.16) Active confirmed Vital Signs Blood pressure systolic 184 mm Hg 10/12/19 25 Blood pressure diastolic 106 mm Hg 025 Height 72 in 10/11/2024 Weight 215.6 lbs 10/11/2024 BMI 29.24 kg/m2 10/11/2024 Encounters Encounter Location Date Provider Diagnosis [facility] [address] [place] [address] 10/11/2024 Micheal Craven Essential (primary) hypertension I10 and Lumbar radiculopathy M54.16 Assessments Encounter Date Diagnosis (ICD Code) Assessment Notes Treatment Notes Treatment Clinical Notes Section Notes 10/11/2024 Essential (primary) hypertension (ICD-10 - I10) 10/11/2024 Lumbar radiculopathy (ICD-10 - M54.16) refill pain mes Stil in PT anadha sfoot drop wearing AFO breace due to faicled lumbar disk surgery Plan Of Treatment Medication Medication Name Sig Start Date Stop Date Notes Lisinopril 10 MG 1 tablet Orally Once a day for 30 days Coreg 25 MG 1 tablet with food O rally Twice a day for 30 days 10/11/2024 oxyCODONE HCl 5 MG 1 tablets Orally janeth ry 4 hours for 14 days 10/11/2024 Treatment Notes Assessment Notes Lumbar radiculopathy refill pain mes Stil in PT anadha sfoot drop wearing AFO breace due to faicled lumbar disk surgery Progress Notes * Raza RODRIGUEZ LDOB: [birth year] (69 yo M)Acc No.[id number]:10/11/2024 Progress Note Patient: Raza HUITRON Provider: Mary Craven ([facility])MD :1955 A ge:69 Y S ex:Male Date:10/11/2024 Address:[address] [place], [place] [id number] Check In:08:56 AM ESTCheck O ut:09:35 AM EST Subjective: * Chief Complaints: * P resents to office alone asking for his case to be reviewed and get a letter for disabilityB/p very high today * HPI: G eneral: Wa tried on lisinopril but dindt want to take it doesnt recall SE Back stil acting up - needs refil meds awaitkjng call about ultrasounds. * ROS: E ENT: hearing changes d [...] enies. S wollen joints d enies. * Active Problem List M54.16 Radiculopathy, lumba [...] Elevated prostate sp ecific antigen [PSA] Modified On:08/21/2022 Status:confirmed K63.5 Cecal polyp Modified On:11/28/2023 Status:confirmed N40.0 BPH (benign prostati c hyperplasia) Modified On:12/22/2023 Status:confirmed S93.409A Ankle sprain Modified On:05/03/2024 Status:confirmed M54.12 Cervical radiculopat hy Modified On:05/13/2024/U Status:confirmed L03.90 Cellulitis Modified On:08/16/2024/U Status:confirmed D64.9 Acute anemia Modified On:09/27/2024/U Status:confirmed R60.9 Edema Modified On:10/07/2024/U Status:confirmed I86.8 Varicose veins Modified On:10/07/2024/U Status:confirmed M54.16 Lumbar radiculopathy Modified On:10/11/2024/U Status:confirmed * Medical History: * Surgical History: [...] I nterpretation N egative * Medications: T akingCialis(Tadalafil) 5 MG Tablet 1 tables Orally daily Ferrous Sulfate 325 (65 Fe) MG Tablet 1 tablet Orally bid Magnesium 400 MG Tablet 1 tablet Orally once daily oxyCODONE HCl 5 MG Tablet 1 tablets Orally every 4 hours tiZANidine HCl 4 MG Tablet TAKE 2 TABLETS BY MOUTH ONCE DAILY AT BEDTIME Medication List reviewed and reconciled with the patientTaking Cialis(Tadalafil) 5 MG Tablet 1 tables Orally daily Taking Ferrous Sulfate 325 (65 Fe) MG Tablet 1 tablet Orally bid Taking Magnesium 400 MG Tablet 1 tablet Orally once daily Taking oxyCODONE HCl 5 MG Tablet 1 tablets Orally every 4 hours Taking tiZANidine HCl 4 MG Tablet TAKE 2 TABLETS BY MOUTH ONCE DAILY AT BEDTIME Medication List reviewed and reconciled with the patient * Allergies: P enicillin: hives - AllergyRobaxin: Side Effectsno[Allergies Verified] Objective: * Vitals: W t:215.6lbs, Ht: 72 in, BP:184/106mm Hg, BMI:29.24Index, Ht-cm: 182.88 cm, Wt-k.8 kg. * Examination: [...] mood and affect. Assessment: * Assessment: 1. E ssential (primary) hypertension - I10 (Primary) 2 . L umbar radiculopathy - M54.16 Plan: * Treatment: 2. L umbar radiculopathy Notes: refill pain mes Stil in PT anadha sfoot drop wearing AFO breace due to faicled lumbar disk surgery * Procedure Codes: * Preventive Medicine: Screenings/Counseling: B ND ACTION PLAN Above Normal BMI Follow-up D ietary management education, guidance, and counseling See treatment section of progress note for complete details of management plan. * * Sign off status: Completed Visit Status: C HK (Check Out) true * Provider: Mary Craven ([facility])MD Date: 10/11/2024 Generated for Printi ng/Faxing/eTransmitting on: 11/03/2024 12:48 PM EDT History and Physical Notes * HPI (History of Present Illness) Category Sub-Category Detail Notes Category Not es General Wa tried on lisinopril but dindt want to take it doesnt recall SE Back stil acting up - needs refil meds awaitkjng call about ultrasounds Examination Category Sub-Category Detail Notes Category Not [...]
--- OUTSIDE RECORDS SUMMARY | 2024-10-18 15:56 | XMS_ITS ---
Author Organization The [facility] in [place] Address [address] [place] [address] Care Team Providers Care Body Shop Floorperson Name Role Phone Micheal Craven Primary Care Provider [phone] REASON FOR VISIT echo Medications Medication SIG (Take, Route, Fr equency, Duration) Notes Start Date End Date Status Lisinopril 20 MG 1 tablet Orally Once a day for 30 days 10/11/2024 Active Encounters Encounter Location Date Provider Diagnosis [facility] [address] [place] [address] 10/18/2024 Micheal Craven Essential (primary) hypertension I10 Assessments Encounter Date Diagnosis (ICD Code) Assessment Notes Treatment Notes Treatment Clinical Notes Section Notes 10/18/2024 Essential (primary) hypertension (ICD-10 - I10) Plan Of Treatment Medication Medication Name Sig Start Date Stop Date Notes Lisinopril 20 MG 1 tablet Orally Once a day for 30 days Progress Notes * Raza RODRIGUEZ LDOB: [birth year] (69 yo M)Acc No.[id number]:10/18/2024 Patient: Vitaliy CHA Raza Hackett :1955 A ge:69 Y S ex:Male Address:[address] [place] [address], [address] * Refills Refill Lisinopril Tablet, 20 MG, Orally, 30, 1 tablet, Once a day, 30 days, Refills=11 * true * Date: Generated for Printi ng/Fanormag/eTransmitting on: 0 11/03/2024 12:50 PM EDT
--- OUTSIDE RECORDS SUMMARY | 2024-10-25 07:04 | XMS_ITS ---
Author Organization The [facility] in [place] Address [address] [place] [address] Care Team Providers Care Operations Leader Name Role Phone Micheal Craven Primary Care Provider REASON FOR VISIT Refill Oxycodone Medications Medication SIG (Take, Route, Fr equency, Duration) Notes Start Date End Date Status oxyCODONE HCl 5 MG 1 tablets Orally janeth ry 4 hours for 14 days 10/25/2024 Active Encounters Encounter Location Date Provider Diagnosis [facility] [address] [place] [address] 10/25/2024 Micheal Craven Essential (primary) hypertension I10 Assessments Encounter Date Diagnosis (ICD Code) Assessment Notes Treatment Notes Treatment Clinical Notes Section Notes 10/25/2024 Essential (primary) hypertension (ICD-10 - I10) Plan Of Treatment Medication Medication Name Sig Start Date Stop Date Notes oxyCODONE HCl 5 MG 1 tablets Orally janeth ry 4 hours for 14 days 10/25/2024 Progress Notes * Raza RODRIGUEZ LDOB: [birth year] (69 yo M)Acc No.[id number]:10/25/2024 Patient: Vitaliy CHA Raza Hackett :1955 A ge:69 Y S ex:Male Address:[address] [place] [address], [id number] * Refills Refill oxyCODONE HCl Tablet, 5 MG, Orally, 84 Tablet, 1 tablets, every 4 hours, 14 days, Refills=0 * true * Date: Generated for James crane/Luis Angel/Kofiitting on: 0 11/03/2024 12:48 PM EDT
--- OUTSIDE RECORDS SUMMARY | 2024-11-03 12:48 | XMS_ITS | Encounter Summary ---
Author Organization [facility] Address [address] [place] [address] Care Team Providers Care Rack Cleaner Name Role Phone Devon Craven MD Primary Care Provider [phone] Keith Md MD Unavailable Unavailable Source Comments In the event this information is protected by the Federal Confidentiality of Alcohol and Drug AbusePatient Records regulations: The Federal rules restrict any use of the information to criminally investigate or prosecute any alcohol or drug abuse patient.[facility] Encounter Details Date Type Department Care Team (Late st Contact Info) Description 10/01/2023 Patient Msg [facility] [place] [address] [place] [address] Provider, [facility] ACTION REQUIRED: Skin Preparation before your surgery Social History Tobacco Use Types Packs/Day Years Used Date Smoking Tobacco: Never Smokeless Tobacco: Former Chew Quit: 1999 Alcohol Use Standard Drinks/Week Comments Never 0 (1 standard drink = 0.6 oz pur e alcohol) [facility] Utilities Answer Date Recorded In the past 12 months has [employer] electric, gas, oil, or water company threatened [...] is lower risk 4 08/06/2023 Data from: https://www.neighborhoodatlas.medicine.[facility].edu/. Last address used for calculation [...] on filedocumented in this encounter Care Teams Rack Cleaner Relationship Specialty Start Date End Date Devon Craven MD PCP - General 05/05/06 Jones Keith Md, [facility] 09/07/23 documented as of this encounter
--- OUTSIDE RECORDS SUMMARY | 2024-11-03 12:48 | XMS_ITS | Clinical Summary ---
Author Organization [facility] Address [address] [place] [address] Care Team Providers Care Rn Acls Name Role Phone Unavailable Primary Care Provider [...]
--- OUTSIDE RECORDS SUMMARY | 2024-11-03 12:48 | XMS_ITS | Encounter Summary ---
Author Organization [facility] Address [address] [place] [address] Care Team Providers Care Poultry Killer Name Role Phone Devon Craven MD Primary Care Provider [phone] Jones Keith Md MD Unavailable Unavailable Source Comments In the event this information is protected by the Federal Confidentiality of Alcohol and Drug AbusePatient Records regulations: The Federal rules restrict any use of the information to criminally investigate or prosecute any alcohol or drug abuse patient.[facility] Encounter Details Date Type Department Care Team (Late st Contact Info) Description 06/06/2023 Get Medical Advice [facility] [place] [address] [place] [address] Jones Keith MD [address] [place] [address] Surgery schedule Social History Tobacco [...] is lower risk 4 04/30/2023 Data from: https://www.neighborhoodatlas.medicine.[facility].edu/. Last address used for calculation [...] on filedocumented in this encounter Care Teams Poultry Killer Relationship Specialty Start Date End Date Devon Craven MD PCP - General 05/05/06 Jones Keith Md, Sp[facility] 09/07/23 documented as of this encounter
--- OUTSIDE RECORDS SUMMARY | 2024-11-03 12:48 | XMS_ITS | Encounter Summary ---
Author Organization [facility] Address [address] [place] [address] Care Team Providers Care Protein Specialist Name Role Phone Devon Craven MD Primary Care Provider [phone] Jones Keith Md MD Unavailable Unavailable Source Comments In the event this information is protected by the Federal Confidentiality of Alcohol and Drug AbusePatient Records regulations: The Federal rules restrict any use of the information to criminally investigate or prosecute any alcohol or drug abuse patient.[facility] Encounter Details Date Type Department Care Team (Late st Contact Info) Description 02/26/2024 Patient Msg [facility] [place] [facility] [address] [place] [address] Vivian Collins PA-C [address] [place] [address] MRI Social History Tobacco Use Types Packs/Day Years Used Date Smoking Tobacco: Never Smokeless Tobacco: Former Chew Quit: 1999 Alcohol Use Standard Drinks/Week Comments Never 0 (1 standard drink = 0.6 oz pur e alcohol) [facility] Utilities Answer Date Recorded In the [...] place to sleep or slept in a correction (including now)? No 08/20/2023 Area Deprivation Index Answer Date Cole rded National Score (1-100), lower number is lower ri sk 61 08/06/2023 State Score (1-10), lower number is lower risk 4 08/06/2023 Data from: https://www.neighborhoodatlas.medicine.[facility].edu/. Last address used for calculation [address] [...] on filedocumented in this encounter Care Teams Protein Specialist Relationship Specialty Start Date End Date Devon Craven MD PCP - General 05/05/06 Jones Keith Md, Sp[facility] 09/07/23 documented as of this encounter
--- OUTSIDE RECORDS SUMMARY | 2024-11-03 12:48 | XMS_ITS | Encounter Summary ---
Author Organization [facility] Address [address] [place] [address] Care Team Providers Care Glassware Selector Name Role Phone Devon Craevn MD Primary Care Provider [phone] Jones Keith Md MD Unavailable Unavailable Source Comments In the event this information is protected by the Federal Confidentiality of Alcohol and Drug AbusePatient Records regulations: The Federal rules restrict any use of the information to criminally investigate or prosecute any alcohol or drug abuse patient.[facility] Encounter Details Date Type Department Care Team (Late st Contact Info) Description 08/11/2023 Patient Msg [facility] [place] [address] [place] [address] Provider, Félix Preop Education Class [...] is lower risk 4 08/06/2023 Data from: https://www.neighborhoodatlas.[facility].edu/. Last address used for calculation [address] [...] on filedocumented in this encounter Care Teams Glassware Selector Relationship Specialty Start Date End Date Devon Craven MD PCP - General 05/05/06 Jones Keith Md, MD [facility] 09/07/23 documented as of this encounter
--- OUTSIDE RECORDS SUMMARY | 2024-11-03 12:48 | XMS_ITS | Patient Health Record ---
Author Organization [facility] in [place] Address [address] [place] [address] Care Team Providers Care Newsagent Name Role Phone Micheal Cain Primary Care Provider [phone] Allergies Allergen (clinical drug ingredient) Drug/Non Drug Allergy documented on EMR Reaction Allergy Type Onset Date Status methocarbamol Robaxin Unknown Drug Allergy Act samy Penicillin hives Drug Allergy Active Results Component Value Reference Range Notes BNP Reviewed date:07/06/2024 12:21:03 PM Interpretation: Performing Lab: Notes/Report: [facility] , NT Pro B Type Natriuretic Pept 226.0 <=900.0 pg/mL Performing Lab: see note ML - [facility] IRON Reviewed date:09/28/2024 04:08:58 PM Interpretation: Performing Lab: Notes/Report: [facility] , Iron 111.0 65.0-175.0 ug/dL Performing Lab: see note ML - [facility] LB LIPID PROFILE Reviewed date:12/09/2023 07:13:27 PM Interpretation: Performing Lab: Notes/Report: [facility] , Triglycerides 79 <=150 mg/dL Cholesterol 163 <=200 mg/dL HDL Cholesterol 54 40-60 mg/dL > or =60 mg/dl - LOW CARDIOVASCULAR RISK <40 mg/dl - HIGH CARDIOVASCULAR RISK LDL Cholesterol Calculated 93.2 100-129 mg/dl NEAR OR ABOVE OPTIMAL <100 mg/dl OPTIMAL 160-189 mg/dl HIGH >190 mg/dl VERY HIGH 130-159 mg/dl BORDERLINE HIGH VLDL CHOLESTEROL 15.8 Chol HDL Ratio 3.0 >11.0 HIGH RISK 7.1 - 11.0 MODERATE RISK 4.4 - 7.1 AVERAGE RISK 3.3 - 4.4 LOW RISK Performing Lab: see note ML - [facility] FREE T3 Reviewed date:07/06/2024 12:21:03 PM Interpretation: Performing Lab: Notes/Report: [facility] , Free T3 3.52 2.18-3.98 pg/mL Performing Lab: see note ML - [facility] LB LIPID PROFILE Reviewed date:07/06/2024 12:21:03 PM Interpretation: Performing Lab: Notes/Report: [facility] , Triglycerides 98 <=150 mg/dL Cholesterol [...] RISK Performing Lab: see note ML - [facility] PROF 14(COMP METB) Reviewed date:07/06/2024 12:21:03 PM Interpretation: Performing Lab: Notes/Report: [facility] , Sodium 143 136-145 mmol/L Potassium [...] 1.4 Performing Lab: see note ML - [facility] LB T4 Reviewed date:07/06/2024 12:21:03 PM Interpretation: Performing Lab: Notes/Report: [facility] , T4 Thyroxine 5.40 4.50-12.10 ug/dL Performing Lab: see note ML - [facility] LB TSH Reviewed date:07/06/2024 12:21:03 PM Interpretation: Performing Lab: Notes/Report: [facility] , Thyroid Stimulating Hormone 2.326 0.358-3.740 uIU/mL Performing Lab: see note ML - [facility] LB Troponin I High Sensitivity Reviewed date:07/06/2024 12:21:03 PM Interpretation: Performing Lab: Notes/Report: [facility] , Troponin I High Sensitivity 10.0 4.0-76.1 pg/mL WITH OTHER DIAGNOSTIC AND CLINICAL INFORMATION. CUT-OFF POINTS HAVE BEEN ESTABLISHED BASED ON THE FOURTH USED IN ISOLATION BUT SHOULD BE INTERPRETED IN CONJUNCTION UNIVERSAL DEFINITION OF MYOCARDIAL INFARCTION. THE UPPER NOTE: HIGH-SENSITIVITY TROPONIN ASSAY IS NOT INTENDED TO BE DIAGNOSIS. HAS BEEN CONFIRMED THE DECISION THRESHOLD FOR OR 99TH PERCENTILE = 76.2 PG/ML PERCENTILE OF cTnI DISTRIBUTION IN A REFERENCE POPULATION, REFERENCE LIMIT (URL) OF TROPONIN, DEFINED THE 99TH Performing Lab: see note ML - [facility] LB CBC AUTO DIFF Reviewed date:09/28/2024 04:08:58 PM Interpretation: Performing Lab: Notes/Report: [facility] , White Blood Count 6.3 4.0-11.0 10 3/uL Red Blood Count 4.46 4.70-6.10 10 6/uL Hemoglobin 13.9 14.0-18.0 g/dL Hematocrit 40.9 42.0-54.0 % Mean Corpuscular Volume 91.7 80.0-94.0 fL Mean Corpuscular Hemoglobin 31.2 25.9-34.0 pg Mean Corpuscular HGB Conc 34.0 29.9-35.2 g/dL Red Cell Distribution Width 13.7 11.0-15.0 % Platelet Count 301 150-450 10 3/uL Mean Platelet Volume 9.4 9.5-13.5 fL Neutrophils Percent Auto 49.8 43.0-75.0 % Lymphocytes Percent Auto 32.1 20.5-60.0 % Monocytes Percent Auto 12.6 1.7-12.0 % Eosinophils Percent Auto 3.9 0.9-7.0 % Basophils Percent Auto 0.8 0.2-2.0 % Immature Granulocytes Pct Auto 0.8 0.0-0.5 % Neutrophils Absolute Auto 3.2 1.4-6.5 10 3/uL Lymphocytes Absolute Auto 2.0 1.2-3.8 10 3/uL Monocytes Absolute Auto 0.8 0.3-0.8 10 3/uL Eosinophils Absolute Auto 0.3 0.0-0.7 10 3/uL Basophils Absolute Auto 0.1 0.0-0.1 10 3/uL Immature Granulocytes Abs Auto 0.05 0.00-0.03 10 3/uL Performing Lab: see note ML - [facility] LB GLYCOHEMOGLOBIN A1C Reviewed date:09/28/2024 04:08:58 PM Interpretation: Performing Lab: Notes/Report: [facility] , Glycohemoglobin A1C 5.5 4.5-6.2 % > 7.0 ADA RECOMMENDED LIMIT 4.0 - 6.0 ACTION SUGGESTED ADA THERAPEUTIC TARGET < 7.0 Estimated Average Glucose 111 Performing Lab: see note - [facility] LB PROF 14(COMP METB) Reviewed date:09/28/2024 04:08:58 PM Interpretation: Performing Lab: Notes/Report: [facility] , Sodium 141 136-145 mmol/L Potassium 4.7 3.5-5.1 mmol/L Chloride 105 98-107 mmol/L Carbon Dioxide 27.9 21.0-32.0 mmol/L Anion Gap 12.8 Glucose 96 74-106 mg/dL Blood Urea Nitrogen 26.0 7.0-18.0 mg/dL Creatinine 1.02 0.70-1.30 mg/dL Estimated GFR ( Eugenie >60 >=60 mL/min/1.73m 2 Estimated GFR (Non- Gracie >60 >=60 mL/min/1.73m 2 BUN Creatinine Ratio 25.5 Calcium 9.5 8.5-10.1 mg/dL Bilirubin Total 1.0 0.2-1.0 mg/dL Aspartate Amino Transferase 29 15-37 U/L Alanine Aminotransferase 29 16-63 U/L Alkaline Phosphatase 68 46-116 U/L Total Protein 6.6 6.4-8.2 g/dL Albumin Level 3.8 3.4-5.0 g/dL Globulin 2.8 Albumin Globulin Ratio 1.4 Performing Lab: see note ML - [facility] LB CA echo doppler complete Reviewed date:10/18/2024 07:58:21 PM Interpretation: Performing Lab: Notes/Report: Source Facility: [place] [address] Cardiology Report Signed Patient: RAZA RODRIGUEZ MR#: [id number] : 1955 Acct:[id number] Age/Sex: 69 / M ADM Date: 10/18/24 Loc: CARD Attending Dr: Ester Cain M.D. Ordering Physician: Ester Cain M.D. Date of Service: 10/18/24 Procedure(s): CA echo doppler complete Accession Number(s): [id number] cc: Ester Cain M.D. Patient Name: RAZA RODRIGUEZ MR#: [id number] : 1955 Exam Date: 10/18/2024 Ordering Doctor: DR ESTER CAIN . ECHOCARDIOGRAM REPORT PROCEDURE: CA ECHO DOPPLER COMPLETE INDICATIONS: Edema COMPARISON: None. DESCRIPTION: COMPLETE ECHOCARDIOGRAM Real-time transthoracic echocardiography with 2D, M-mode, spectral and color flow Doppler performed. QUALITY: Technical quality was good. LEFT VENTRICLE: Normal chamber size. Borderline left ventricular hypertrophy. Global left ventricular systolic function is normal. LV EF: Estimated left ventricular ejection fraction is 70%. DIASTOLIC: Normal diastolic function. ATRIAL SEPTUM: LEFT ATRIUM: Moderate dilatation. RIGHT ATRIUM: Moderate dilatation. RIGHT VENTRICLE: Normal chamber size. Normal right ventricular systolic function. TRICUSPID VALVE: Normal mobility and thickness. No stenosis with trivial regurgitation. No evidence of pulmonary hypertension. RVSP 31 mmHg MITRAL VALVE: Normal mobility and thickness. No evidence of mitral valve stenosis. Mild mitral annular calcification. Trivial mitral regurgitation. AORTIC VALVE: Normal trileaflet appearance. No visible sclerosis. Normal leaflet mobility. No evidence of aortic valve stenosis. No aortic regurgitation. AORTIC ROOT: Normal diameter and appearance, measuring 3.6 cm. The ascending aorta measures 3.6 cm. PULMONIC VALVE: Normal thickness and mobility. No stenosis. Trivial regurgitation. PERICARDIUM: No evidence of pericardial effusion. IVC: Collapses with inspirations. Normal size. PLEURA: CONCLUSION: 1. Borderline left ventricular hypertrophy with normal systolic function. Estimated LVEF is 70%. 2. Normal right ventricular size and systolic function. 3. Normal diastolic function. 4. Moderate biatrial dilatation. 5. No significant valvular dysfunction. 6. Normal right-sided pressures. Adult Echocardiography Procedure Report Left Ventricle LVEDD (3.7 - 5.6 cm): 4.82 cm LVESD (2.2 - 4.0 cm): 3.25 cm LVIVS thickness (0.6 - 1.2 cm): 1.14 cm LVPW thickness (0.5 - 1.0 cm): 0.96 cm e': 0.10 m/s E - e': 7.11 LVOT Max Gradient: 3.97 mm[Hg] LVOT Area (cm2): 1.00 m/s Peak Velocity (LVOT): 1.00 m/s Mean Velocity (LVOT): 0.56 m/s LVOT Diameter 2.31 cm Left Ventricular Ejection Fraction: 70 % Left Atrium LA Volume Index (2D A2C): 58.87 ml/m2 Left Atrium Systolic Dimension: 5.17 cm Mitral Valve MV E to A Ratio: 0.77 Mitral Valve A-Wave Peak Velocity: 0.90 m/s Mitral Valve E-Wave Peak Velocity: 0.69 m/s Right Ventricle RV Internal Diastolic Dimension: 3.72 cm Aorta AO Root Diam: 3.61 cm Ascending Ao Diam: 3.56 cm Aortic Valve AoV Area (Peak Bladimir): 3.47 cm2, 3.47 cm2 AoV Area (VTI): 3.59 cm2, 3.59 cm2 Peak Velocity(Antegrade Flow): 1.20 m/s Peak Gradient(Antegrade Flow): 5.76 mm[Hg] Mean Velocity(Antegrade Flow): 0.77 m/s Mean Gradient(Antegrade Flow): 2.81 mm[Hg] Velocity Time Integral: 28.07 cm Tricuspid Valve Peak Velocity (Regurgitant Flow): 2.12 m/s, 2.30 m/s, 2.09 m/s Pulmonic Valve Peak Velocity: 0.82 m/s Peak Gradient: 2.47 mm[Hg], 2.93 mm[Hg] Right Atrium Right Atrium Systolic Pressure: 75.92 ml, 75.92 ml Dictated by: Tello Mccullough M.D. on 10/18/2024 at 18:58 Approved by: Tello Mccullough M.D. on 10/18/2024 at 19:01 Dictated By: TELLO MCCULLOUGH Signed By: 10/18/241901 DD/ 00 TD/TT: Tiler'S Assistant: [place] [address] Cardiology Report Signed Patient: MARSHA RODRIGUEZ MR#: [id number] : 1955 Acct:[id number] Age/Sex: 69 / M ADM Date: 10/18/24 Loc: CARD Attending Dr: Saeed Cain M.D. Ordering Physician: Ester Cain M.D. Date of Service: 10/18/24 Procedure(s): CA ech o doppler complete Accession Number(s): [id number] cc: Ester Cain M.D. Patient Name: RAZA RODRIGUEZ MR#: [id number] : 1955 Exam Date: 10/18/2024 Ordering Doctor: DR ESTER CAIN . ECHOCARDIOGRAM REPORT PROCEDURE: CA ECHO DOPPLER COMPLETE INDICATIONS: Edema COMPARISON: None. DESCRIPTION: COMPLET E ECHOCARDIOGRAM Real-time transthoracic echocardiography wit h 2D, M-mode, spectral and color flow Doppler performed. QUALITY: Technical quality was good. LEFT VENTRICLE: Norm al chamber size. Borderline left ventricular hypertrophy. Global left ventricular systolic function is normal. LV EF: Estimated lef t ventricular ejection fraction is 70%. DIASTOLIC: Normal diastolic function. ATRIAL SEPTUM: LEFT ATRIUM: Moderat e dilatation. RIGHT ATRIUM: Modera te dilatation. RIGHT VENTRICLE: Nor mal chamber size. Normal right ventricular systolic function. TRICUSPID VALVE: Nor mal mobility and thickness. No stenosis with trivial regurgitation. No evidence of pulmonary hypertension. RVSP 31 mmHg MITRAL VALVE: Normal mobility and thickness. No evidence of mitral valve stenosis. Mild ally l annular calcification. Trivial mitral regurgitation. AORTIC VALVE: Normal trileaflet appearance. No visible sclerosis. Normal leaflet mobility. No evidence of aortic valve stenosis. No aortic regurgitation. AORTIC ROOT: Normal diameter and appearance, measuring 3.6 cm. The ascending aorta gordon ures 3.6 cm. PULMONIC VALVE: Norm al thickness and mobility. No stenosis. Trivial regurgitation. PERICARDIUM: No evid ence of pericardial effusion. IVC: Collapses with inspirations. Normal size. PLEURA: CONCLUSION: 1. Borderline left ventricular hypertrophy with normal systolic function. Estimated LVEF is 70%. 2. Normal right ventricular size and systolic function. 3. Normal diastolic function. 4. Moderate biatrial dilatation. 5. No significant valvular dysfunction. 6. Normal right-side d pressures. Adult Echocardiograp hy Procedure Report Left Ventricle LVEDD (3.7 - 5.6 cm) : 4.82 cm LVESD (2.2 - 4.0 cm) : 3.25 cm LVIVS thickness (0.6 - 1.2 cm): 1.14 cm LVPW thickness (0.5 - 1.0 cm): 0.96 cm e': 0.10 m/s E - e': 7.11 LVOT Max Gradient: 3 .97 mm[Hg] LVOT Area (cm2): 1.0 0 m/s Peak Velocity (LVOT) : 1.00 m/s Mean Velocity (LVOT) : 0.56 m/s LVOT Diameter 2.31 cm Left Ventricular Ejection Fraction: 70 % Left Atrium LA Volume Index (2D A2C): 58.87 ml/m2 Left Atrium Systolic Dimension: 5.17 cm Mitral Valve MV E to A Ratio: 0.77 Mitral Valve A-Wave Peak Velocity: 0.90 m/s Mitral Valve E-Wave Peak Velocity: 0.69 m/s Right Ventricle RV Internal Diastoli c Dimension: 3.72 cm Aorta AO Root Diam: 3.61 cm Ascending Ao Diam: 3 .56 cm Aortic Valve AoV Area (Peak Bladimir): 3.47 cm2, 3.47 cm2 AoV Area (VTI): 3.59 cm2, 3.59 cm2 Peak Velocity(Antegr daily Flow): 1.20 m/s Peak Gradient(Antegr daily Flow): 5.76 mm[Hg] Mean Velocity(Antegr daily Flow): 0.77 m/s Mean Gradient(Antegr daily Flow): 2.81 mm[Hg] Velocity Time Integr al: 28.07 cm Tricuspid Valve Peak Velocity (Regurgitant Flow): 2.12 m/s, 2.30 m/s, 2.09 m/s Pulmonic Valve Peak Velocity: 0.82 m/s Peak Gradient: 2.47 mm[Hg], 2.93 mm[Hg] Right Atrium Right Atrium Systoli c Pressure: 75.92 ml, 75.92 ml Dictated by: Tello Mccullough M.D. on 10/18/2024 at 18:58 Approved by: Tello Mccullough M.D. on 10/18/2024 at 19:01 Dictated By: TELLO MCCULLOUGH Signed By: 10/18/241901 DD/ 00 TD/TT: Tiler'S Assistant: XR ankle LT min 3V Reviewed date:05/03/2024 08:28:40 PM Interpretation: Performing Lab: Notes/Report: Source Facility: [place] [address] XRay Report Signed Patient: RAZA RODRIGUEZ MR#: [id number] : 1955 Acct:[id number] Age/Sex: 69 / M ADM Date: 05/03/24 Loc: [facility] Attending Dr: Ester Cain M.D. Ordering Physician: Ester Cain M.D. Date of Service: 05/03/24 Procedure(s): XR ankle LT min 3V Accession Number(s): [id number] cc: Ester Cain M.D. [place] [address] Patient Name: RAZA RODRIGUEZ MRN: [id number] date: 1955 Sex: M Assigned Patient Location: [facility] Current Patient Location: [facility] Accession/Order Number: [id number] Exam Date: 05/03/2024 16:35 Report Date: 05/03/2024 [...] Charlene Souza M.D.05/03/2024 4:41 PM Dictation Location: [place] [address] Electronically authenticated by: [id number] Y Date: 05/03/2024 16:41 Dictated By: Charlene Souza M.D. Signed By: 05/03/241643 DD/ 40 TD/TT: Tiler'S Assistant: [place] [address] XRay Report Signed Patient: MARSHA RODRIGUEZ MR#: [id number] : 1955 Acct:[id number] Age/Sex: 69 / M ADM Date: 05/03/24 Loc: [facility] Attending Dr: Saeed Cain M.D. Ordering Physician: Ester Cain M.D. Date of Service: 05/03/24 Procedure(s): XR ank le LT min 3V Accession Number(s): [id number] cc: Ester Cain M.D. [place] [id number] Patient Name: RAZA RODRIGUEZ MRN: [id number] date: 1955 Sex: M Assigned Patient Location: [facility] Current Patient Location: [facility] Accession/Order Numb er: [id number] Exam Date: 05/03/2024 16:35 Report Date: 05/03/2024 [...] is seen. Atherosclerotic dise ase is noted. X R/XR ankle LT min 3V IMPRESSION: EQUIVOCAL AVULSION INJURY AT THE TIP OF THE MEDIAL MALLEOLUS. FOCAL CLINICAL CORRELATION IS SUGGESTED. Impression dictated by: Charlene Souza M.D.05/03/2024 4:41 PM Dictation Location: [place] [address] Electronically authenticated by: [id number] Y Date: 05/03/2024 16:41 Dictated By: Charlene Souza M.D. Signed By: 05/03/24 1644 DD/ 164 TD/TT: Tiler'S Assistant: PSA SCREENING Reviewed date:07/06/2024 12:21:03 PM Interpretation: Performing Lab: Notes/Report: [facility] , Prostate Specific Antigen Scrn 1.08 <=4.00 ng/mL Performing Lab: see note ML - [facility] LB GLYCOHEMOGLOBIN A1C Reviewed date:07/06/2024 12:21:03 PM Interpretation: Performing Lab: Notes/Report: [facility] , Glycohemoglobin A1C 5.3 4.5-6.2 % ACTION SUGGESTED ADA THERAPEUTIC TARGET < 7.0 ADA RECOMMENDED LIMIT 4.0 - 6.0 > 7.0 Estimated Average Glucose 105 Performing Lab: see note ML - [facility] LB CBC AUTO DIFF Reviewed date:07/06/2024 12:21:03 PM Interpretation: Performing Lab: Notes/Report: [facility] , White Blood Count 6.9 4.0-11.0 [...] 3/uL Performing Lab: see note ML - [facility] LB XR cervical spine 2-3V Reviewed date:06/29/2024 08:32:50 PM Interpretation: Performing Lab: Notes/Report: Source Facility: [place] [address] XRay Report Signed Patient: RAZA RODRIGUEZ MR#: [id number] : 1955 Acct:[id number] Age/Sex: 69 / M ADM Date: 06/29/24 Loc: RAD Attending Dr: StevoStaff Physician Fields Ordering Physician: Jennyfer Garber M.D. Date of Service: 06/29/24 Procedure(s): XR cervical spine 2-3V Accession Number(s): [id number] cc: Ester Cain M.D.; Jennyfer Garber M.D. [place] [address] Patient Name: RAZA RODRIGUEZ MRN: [id number] date: 1955 Sex: M Assigned Patient Location: [facility] Current Patient Location: [facility] Accession/Order Number: [id number] Exam Date: 06/29/2024 17:59 Report Date: 06/29/2024 [...] COMPLICATION. Impression dictated by: James Pisano Jr., DMauriOMauri06/29/2024 6:00 PM Dictation Location: [place] [address] Electronically authenticated by: [id number] Y Date: 06/29/2024 18:00 Dictated By: James Pisano M.D. Signed By: 06/29/241801 DD/ 1800 TD/TT: Tiler'S Assistant: [place] [address] XRay Report Signed Patient: MARSHA RODRIGUEZ MR#: [id number] : 1955 Acct:[id number] Age/Sex: 69 / M ADM Date: 06/29/24 Loc: [facility] Attending Dr: Dasia Garber M.D. Ordering Physician: PhysicianNon-Staff Diamond Date of Service: 06/29/24 Procedure(s): XR cervical spine 2-3V Accession Number(s): [id number] cc: Ester Cain M.D. ; PhysicianStevoStaff Diamond The [place] [id number] Patient Name: RAZA RODRIGUEZ MRN: [facility]:[id number] date: 1955 Sex: M Assigned Patient Location: RAD Current Patient Location: RAD Accession/Order Numb er: [id number] Exam Date: 06/29/2024 17:59 Report Date: 06/29/2024 18:00 At the request of: NON-STAFF PHYSICIAN Procedure: XR cervic al spine 2-3V CERVICAL SPINE 3 views: CLINICAL HISTORY: S/ P cervical spinal fusion, Z98.1 COMPARISON: Cervical spine 01/18/2022 FINDINGS: Posterior hardware fixation C4-C6 without hardware complication. Vertebral body heights appear maintained. Diffuse moderate disc space narrowing. No prevertebral soft ti ssue swelling. X R/XR cervical spine 2-3V IMPRESSION: NO HARDWARE COMPLICATION. Impression dictated by: James Pisano Jr., D.O.06/29/2024 6:00 PM Dictation Location: [employer] Electronically authenticated by: [id number] Y Date: 06/29/2024 18:00 Dictated By: James Pisano M.D. Signed By: 06/29/241801 DD/ 99 TD/TT: Tiler'S Assistant: Reason For Referral No Information Medications Medication SIG (Take, Route, Frequency, Duration) Notes Start Date End Date Status oxyCODONE HCl 5 MG 1 tablets Orally janeth ry 4 hours for 14 days 10/25/2024 Active Magnesium 400 MG 1 tablet Orally once daily Active tiZANidine HCl 4 MG TAKE 2 TABLETS BY [facility] ONCE DAILY AT BEDTIME for 90 Active Cialis 5 MG 1 tables Orally jona y for 30 days 12/22/2023 Active Ferrous Sulfate 325 (65 Fe) MG 1 tablet Orally bid for 30 days 07/06/2024 Active Coreg 25 MG 1 tablet with food O rally Twice a day for 30 days 10/11/2024 Active Lisinopril 20 MG 1 tablet Orally Once a day for 30 days 10/11/2024 Active Social History Tobacco Use: [...] Problem Status W/U Status Risk Notes Problem 90454945 Essential (primary) hypertension (I10) Active confirmed Problem 776089631 Hypoglycemia, unspecified (E16.2) Active confirmed Problem 5602791 Supraventricular tachycardia (I47.1) Active confirmed Problem 790779163 Ventricular premature depolarization (I49.3) Active confirmed Problem 01799716 Asymptomatic varicose veins of unspecified lower extremity (I83.90) Active confirmed Problem 539285809 Diverticulosis o f intestine, part unspecified, without perforation or abscess without bleeding (K57.90) Active confirmed Problem 79184076059843853 Sacroiliitis, not elsewhere classified (M46.1) Active confirmed Problem 16965374 Radiculopathy, cervical region (M54.12) Active confirmed Problem 745386305 Radiculopathy, lumbar region (M54.16) Active confirmed Problem 110217592 Impingement syndrome of unspecified shoulder (M75.40) Active confirmed Problem Cervical radiculopathy (12454639) Cervical radiculopathy (M54.12) Active confirmed Problem Edema (88938132) Edema (R60.9) Active confirmed Problem Benign prostatic hyperplasia (874215652) BPH (benign prostatic hyperplasia) (N40.0) Active confirmed Problem Lumbar radiculopathy (718087237) Lumbar radiculopathy (M54.16) Active confirmed Problem Ankle sprain (89737330) Ankle sprain (S93.409A) Active confirmed Problem Varicose veins (444283553) Varicose veins (I86.8) Active confirmed Problem Cellulitis (236213531) Cellulitis (L03.90) Active confirmed Problem 965187206 Pure hypercholesterolem ia, unspecified (E78.00) Active confirmed Problem 383105303 Elevated prostat e specific antigen [PSA] (R97.20) Active confirmed Problem Anemia (618715074) Acute anemia (D64.9) Active confirmed Problem Cecal polyp (104055326) Cecal polyp (K63.5) Active confirmed Vital Signs Temperature 97.9 degrees Fahrenheit 12/22/2023 Blood pressure diastolic 106 mm Hg 10/11/2024 Height 72 in 10/11/2024 Blood pressure systolic 184 mm Hg 10/11/2024 Weight 215.6 lbs 10/11/2024 BMI 29.24 kg/m2 10/11/2024 Procedures Procedure Date Ordered Date Performed Result Body Sit e CARDIO Echocardiogram 10/07/2024 N/A Encounters Encounter Location Date Provider Diagnosis [place] [id number] [place] [address] 09/13/2024 Micheal Hoy Cellulitis L03.[address] [place] [address] 01/21/2024 Micheal Hoy Radiculopathy, lumba r region M54.[address] [place] [address] 08/16/2024 Micheal Hoy Cellulitis L03.[address] [place] [address] 10/11/2024 Micheal Hoy Essential (primary) hypertension I10 and Lumbar radiculopathy M54.[address] [place] [address] 02/11/2024 Micheal Hoy Radiculopathy, lumba r region M54.16 and Radiculopathy, cervical region M54.[address] [place] [address] 2024 Micheal Hoy Radiculopathy, lumba r region M54.16 and Radiculopathy, cervical region M54.[address] [place] [address] 05/03/2024 Micheal Hoy Ankle sprain S93.409 A ; Essential (primary) hypertension I10 ; Hypoglycemia, unspecified E16.2 ; BPH (benign prostatic hyperplasia) N40.0 and Pure hypercholesterolemia, unspecified E78.[address] [place] [address] 05/13/2024 Micheal Hoy Radiculopathy, lumba r region M54.16 and Cervical radiculopathy M54.[address] [place] [address] 07/05/2024 Micheal Hoy Elevated troponin R7 7.8 ; Essential (primary) hypertension I10 ; Hypoglycemia, unspecified E16.2 and Iron deficiency E61.[address] [address] 11/17/2023 Micheal Hoy Radiculopathy, lumba r region M54.16 [facility] [address] [facility] [place] [address] 12/22/2023 Micheal Hoy BPH (benign prostati c hyperplasia) N40.0 and Impingement syndrome of unspecified shoulder M75.40 [facility] [address] [place] [address] 09/27/2024 Micheal Hoy Hypoglycemia, unspecified E16.2 ; Acute anemia D64.9 and Radiculopathy, lumbar region M54.16 [facility] [address] [place] [address] 10/07/2024 Micheal Hoy Edema R60.9 and Vari cose veins I86.8 [facility] [address] [facility] [place] [address] 03/01/2024 Micheal Hoy Radiculopathy, lumba r region M54.16 ; Pure hypercholesterolemia, unspecified E78.00 ; Essential (primary) hypertension I10 and Radiculopathy, cervical region M54.12 [facility] [address] [facility] [place] [address] 11/17/2023 Micheal Hoy [facility] [address] [facility] [place] [address] 12/04/2023 Micheal Hoy Pure hypercholesterolemia, unspecified E78.00 [facility] [address] [address] 12/09/2023 Micheal Hoy [facility] [address] [place] [address] 12/16/2023 Micheal Hoy [facility] [address] [place] [address] 01/15/2024 Micheal Hoy BPH (benign prostati c hyperplasia) N40.0 [facility] [address] [place] [address] 01/23/2024 Micheal Hoy [facility] [address] [place] [address] 02/27/2024 Micheal Hoy [facility] [address] [place] [address] 03/15/2024 Micheal Hoy Radiculopathy, lumba r region M54.16 [facility] [address] [place] [address] 03/29/2024 Micheal Hoy Radiculopathy, lumba r region M54.16 and BPH (benign prostatic hyperplasia) N40.0 [facility] [address] [place] [address] 03/29/2024 Micheal Hoy [facility] [address] [place] [address] 04/12/2024 Micheal Hoy Radiculopathy, lumba r region M54.16 [facility] [address] [facility] [place] [address] 04/26/2024 Micheal Hoy Radiculopathy, lumba r region M54.16 [facility] [address] [facility] [place] [address] 05/03/2024 Micheal Hoy [facility] [address] [facility] [place] [address] 05/06/2024 Micheal Hoy [facility] [address] [facility] [place] [address] 05/10/2024 Micheal Hoy Radiculopathy, lumba r region M54.16 [facility] [address] [facility] [place] [address] 05/24/2024 Micheal Hoy Radiculopathy, lumba r region M54.16 [facility] [address] [place] [place] [address] 06/11/2024 Micheal Hoy Radiculopathy, lumb ar region M54.16 [facility] [address] [place] [address] 07/06/2024 Micheal Hoy [facility] [address] [facility] [place] [address] 07/19/2024 Micheal Hoy Elevated troponin R7 7.8 [facility] [address] [place] [address] 08/03/2024 Micheal Hoy Elevated troponin R7 7.8 [facility] [address] [place] [place] [address] 08/16/2024 Micheal Hoy [facility] [address] [facility] [place] [address] 08/30/2024 Micheal Hoy Cellulitis L03.90 [facility] [address] [place] [address] 09/27/2024 Micheal Hoy Radiculopathy, lumb ar region M54.16 [facility] [address] [facility] [place] [address] 09/28/2024 Micheal Hoy [facility] [address] [facility] [place] [address] 10/18/2024 Micheal Hoy Essential (primary) hypertension I10 [facility] [address] [place] [address] 10/25/2024 Micheal Hoy Essential (primary) hypertension I10 Assessments Encounter Date Diagnosis (ICD Code) Assessment Notes Treatment Notes Treatment Clinical Notes Section Notes 11/17/2023 Radiculopathy, lumbar region (ICD-10 - M54.16) 7 weeks since secdon surgery - R hip and R leg pain persisting - getting more testing in nov - avoidin narcotix 12/22/2023 BPH (benign prostatic hyperplasia) (ICD-10 - N40.0) 12/22/2023 Impingement syndrome of unspecified shoulder (ICD-10 - M75.40) 01/21/2024 Radiculopathy, lumbar region (ICD-10 - M54.16) 02/11/2024 Radiculopathy, lumbar region (ICD-10 - M54.16) 02/11/2024 Radiculopathy, cervical region (ICD-10 - M54.12) 03/01/2024 Radiculopathy, lumbar region (ICD-10 - M54.16) 03/01/2024 Pure hypercholesterole laurent, unspecified (ICD-10 - E78.00) 10/07/2024 Edema (ICD-10 - R60.9) 10/07/2024 Varicose veins (ICD-10 - I86.8) 12/04/2023 Pure hypercholesterole laurent, unspecified (ICD-10 - E78.00) 01/15/2024 BPH (benign prostatic hyperplasia) (ICD-10 - N40.0) 03/15/2024 Radiculopathy, lumbar region (ICD-10 - M54.16) 03/29/2024 Radiculopathy, lumbar region (ICD-10 - M54.16) 2024 Radiculopathy, lumbar region (ICD-10 - M54.16) 2024 Radiculopathy, cervical region (ICD-10 - M54.12) 05/03/2024 Ankle sprain (ICD-10 - S93.409A) 05/03/2024 Essential (primary) hypertension (ICD-10 - I10) 05/03/2024 Hypoglycemia, unspecified (ICD-10 - E16.2) 05/03/2024 BPH (benign prostatic hyperplasia) (ICD-10 - N40.0) 05/03/2024 Pure hypercholesterole laurent, unspecified (ICD-10 - E78.00) 05/13/2024 Radiculopathy, lumbar region (ICD-10 - M54.16) Unalbe to work due to cervical radiculopathy still wtih l;umbar radiculopathy 05/13/2024 Cervical radiculopathy (ICD-10 - M54.12) 07/05/2024 Elevated troponin (ICD-10 - R77.8) repeating - trop - he prefers - to repeat labs - sebas do stress lexiscan 07/05/2024 Essential (primary) hypertension (ICD-10 - I10) 04/12/2024 Radiculopathy, lumbar region (ICD-10 - M54.16) 04/26/2024 Radiculopathy, lumbar region (ICD-10 - M54.16) 05/10/2024 Radiculopathy, lumbar region (ICD-10 - M54.16) 05/24/2024 Radiculopathy, lumbar region (ICD-10 - M54.16) 06/11/2024 Radiculopathy, lumbar region (ICD-10 - M54.16) 07/19/2024 Elevated troponin (ICD-10 - R77.8) 08/03/2024 Elevated troponin (ICD-10 - R77.8) 08/30/2024 Cellulitis (ICD-10 - L03.90) 09/27/2024 Radiculopathy, lumbar region (ICD-10 - M54.16) 10/18/2024 Essential (primary) hypertension (ICD-10 - I10) 10/25/2024 Essential (primary) hypertension (ICD-10 - I10) 08/16/2024 Cellulitis (ICD-10 - L03.90) 10/11/2024 Essential (primary) hypertension (ICD-10 - I10) 10/11/2024 Lumbar radiculopathy (ICD-10 - M54.16) refill pain mes Stil in PT anadha sfoot drop wearing AFO breace due to faicled lumbar disk surgery 09/13/2024 Cellulitis (ICD-10 - L03.90) 09/27/2024 Hypoglycemia, unspecified (ICD-10 - E16.2) 09/27/2024 Acute anemia (ICD-10 - D64.9) 09/27/2024 Radiculopathy, lumbar region (ICD-10 - M54.16) 07/05/2024 Hypoglycemia, unspecified (ICD-10 - E16.2) 03/29/2024 BPH (benign prostatic hyperplasia) (ICD-10 - N40.0) 03/01/2024 Essential (primary) hypertension (ICD-10 - I10) 03/01/2024 Radiculopathy, cervical region (ICD-10 - M54.12) [...] Date Colonoscopy 08/15/2022 CMP (COMPLETE METABOLIC PANEL) 4 CMP (COMPLETE METABOLIC PANEL) 4 HEMOGLOBIN A1C (GLYCO) 05/03/2024 HEMOGLOBIN A1C (GLYCO) 10/15/2023 HEMOGLOBIN A1C (GLYCO) 07/05/2024 HEMOGLOBIN A1C (GLYCO) 09/27/2024 LIPID PANEL (CHOL/TRIG/HDL/LDL) 07/06/19 25 LIPID PANEL (CHOL/TRIG/HDL/LDL) 05/03/19 25 CBC WITH DIFF 05/03/2024 CBC WITH DIFF 10/15/2023 CARDIO Echocardiogram 10/07/2024 Insulin Level 10/15/2023 CBC W/AUTO DIFF 08/28/2023 PSA, TOTAL 08/19/2022 High Sensitivity Troponin 07/05/2024 PROF 14(COMP METB) 08/19/2022 MRI LSPINE WO CON 02/19/2023 US TANMAY DOP LEG LT 08/27/2023 US TANMAY DOP LEG RT 08/27/2023 VC VENOUS REFLUX JAYDON LMT 10/07/2024 XR ANKLE LT MIN 3 V 05/03/2024 THYROID PANEL (T4/TSH/FREE T3) 5 THYROID PANEL (T4/TSH/FREE T3) 4 THYROID PANEL (T4/TSH/FREE T3) 5 Free PSA 08/19/2022 PSA, SCREENING 05/03/2024 PSA, SCREENING 07/05/2024 CMP (COMP MET OCASIO) w/eGFR CKD-EPI 2024 CMP (COMP MET OCASIO) w/eGFR CKD-EPI 2024 CMP (COMP MET OCASIO) w/eGFR CKD-EPI 2024 CBC WITH DIFF 09/27/2024 CBC WITH DIFF 07/05/2024 Insurance Providers Payer Name Payer Address Payer Phone Subscriber Number Group Number Insured Name Patient Relationship to Insured Coverage Start Date Coverage End Date R [address] [address] [place] [address] [id number] Raza Rodriguez Self - patient is the [...] 60 mg Ketorolac Tromethamine 09/27/2024 60 mg Ketorolac Tromethamine 10/07/2024 60 mg Orphenadrine Citrate 07/01/2022 60 mg [...] 60 mg Orphenadrine Citrate 09/27/2024 60 mg Orphenadrine Citrate 10/07/2024 60 mg Medical (General) History Medical History History ICD Code Back pain M54.9 Cervical radiculopathy M54.12 COVID-19 U07.1 Diverticulosis K57.90 Hypertension I10 Hypoglycemia E16.2 Lumbar disc disease M51.9 Lumbar radiculopathy M54.16 Pure hypercholesterolemia E78.00 Shoulder impingement syndrome M75.40 Other specified cardiac arrhythmias I49. 8 Ventricular tachycardia I47.20 PVC (premature ventricular contraction) I49.3 Varicose veins I86.8 LVH and atrial enlargement Surgical History Surgery Date(Month/Year) hernia repair 05/02 Colonoscopy- Dr. Snell 11/26/2023 Lumbar Fusion L2-L5 08/19/2023 exc Bx lesion nasal bridge 11/2016 laminectomy, lumbar Laminoplasty Cervical Spine 06/01 Hospitalization History Reason Date(Month/Year) see above
--- OUTSIDE RECORDS SUMMARY | 2024-11-03 12:48 | XMS_ITS | Encounter Summary ---
Author Organization [facility] Address [address] [place] [address] Care Team Providers Care Detacker Name Role Phone Devon Craven MD Primary Care Provider [phone] Jones Keith Md MD Unavailable Unavailable Source Comments In the event this information is protected by the Federal Confidentiality of Alcohol and Drug AbusePatient Records regulations: The Federal rules restrict any use of the information to criminally investigate or prosecute any alcohol or drug abuse patient.[facility] Encounter Details Date Type Department Care Team (Late st Contact Info) Description 06/29/2024 Patient Msg Cardiology [address] [place] [address] Maco Tse MD [address] [place] [address] Appointment Cancellation Request Social History Tobacco Use Types Packs/Day Years Used Date Smoking Tobacco: Never Smokeless Tobacco: Former Chew Quit: 1999 Alcohol Use Standard Drinks/Week Comments Never 0 (1 standard drink = 0.6 oz pur e alcohol) [facility] Utilities Answer Date Recorded In the [...] is lower risk 4 08/06/2023 Data from: https://www.neighborhoodatlas.medicine.[facility].edu/. Last address used for calculation [address] [...] on filedocumented in this encounter Care Teams Detacker Relationship Specialty Start Date End Date Devon Craven MD PCP - General 05/05/06 Jones Keith Md, MD Spine Health 09/07/23 documented as of this encounter
--- OUTSIDE RECORDS SUMMARY | 2024-11-03 12:48 | XMS_ITS | Encounter Summary ---
Author Organization [facility] Address [address] [place] [address] Care Team Providers Care Letterset Press Set Up Operator Name Role Phone Devon Craven MD Primary Care Provider [phone] Jones Keith Md MD Unavailable Unavailable Source Comments In the event this information is protected by the Federal Confidentiality of Alcohol and Drug AbusePatient Records regulations: The Federal rules restrict any use of the information to criminally investigate or prosecute any alcohol or drug abuse patient.[facility] Encounter Details Date Type Department Care Team (Late st Contact Info) Description 05/06/2024 Patient Msg Spine [place] [address] [place] [address] Provider, Ccf Spine surgery information Social History Tobacco Use Types Packs/Day Years Used Date Smoking Tobacco: Never Smokeless Tobacco: Former Chew Quit: 1999 Alcohol Use Standard Drinks/Week Comments Never 0 (1 standard drink = 0.6 oz pur e alcohol) [facility] Utilities Answer Date Recorded In the [...] place to sleep or slept in a jail (including now)? No 08/20/2023 Area Deprivation Index Answer Date Cole rded National Score (1-100), lower number is lower ri sk 61 08/06/2023 State Score (1-10), lower number is lower risk 4 08/06/2023 Data from: https://www.neighborhoodatlas.medicine.[facility].edu/. Last address used for calculation [address] [...] on filedocumented in this encounter Care Teams Letterset Press Set Up Operator Relationship Specialty Start Date End Date Devon Craven MD PCP - General 05/05/06 Jones Keith Md, MD Spine Health 09/07/23 documented as of this encounter
--- OUTSIDE RECORDS SUMMARY | 2024-11-03 12:48 | XMS_ITS | Encounter Summary ---
Author Organization [facility] Address [address] [place] [address] Care Team Providers Care Boilermaker Loftsman Name Role Phone Devon Craven MD Primary Care Provider [phone] Jones Keith Md MD Unavailable Unavailable Source [...] Info) Description 08/29/2023 Get Medical Advice [facility] [place] [address] [place] [address] Vivian Collins PA-C [address] [place] [address] Back brace Social History Tobacco Use Types Packs/Day Years Used Date Smoking Tobacco: Never Smokeless Tobacco: Former Chew Quit: 1999 Alcohol Use Standard Drinks/Week Comments Never 0 (1 standard drink = 0.6 oz pur e alcohol) [facility] Utilities Answer Date Recorded In the [...] is lower risk 4 08/06/2023 Data from: https://www.neighborhoodatlas.medicine.[facility].edu/. Last address used for calculation [address] [...] on filedocumented in this encounter Care Teams Boilermaker Loftsman Relationship Specialty Start Date End Date Devon Craven MD PCP - General 05/05/06 Jones Keith Md, Spine Health 09/07/23 documented as of this encounter
--- OUTSIDE RECORDS SUMMARY | 2024-11-03 12:48 | XMS_ITS | Encounter Summary ---
Author Organization [facility] Address [address] [place] [address] Care Team Providers Care Hog Scraper Name Role Phone Devon Craven MD Primary Care Provider [phone] Jones Keith Md MD Unavailable Unavailable Source [...] Contact Info) Description 09/18/2023 Patient Msg Spine [place] [address] [place] [address] Provider, Ccf Important Reminder for Preparing Your Skin for Surgery Social History Tobacco Use Types Packs/Day Years Used Date Smoking Tobacco: Never Smokeless Tobacco: Former Chew Quit: 1999 Alcohol Use Standard Drinks/Week Comments Never 0 (1 standard drink = 0.6 oz pur e alcohol) [facility] Utilities Answer Date Recorded In the past 12 months has [employer], gas, oil, or water company threatened [...] place to sleep or slept in a fpc (including now)? No 08/20/2023 Area Deprivation Index Answer Date Cole rded National Score (1-100), lower number is lower ri sk 61 08/06/2023 State Score (1-10), lower number is lower risk 4 08/06/2023 Data from: https://www.neighborhoodatlas.medicine.[facility].edu/. Last address used for calculation [...] on filedocumented in this encounter Care Teams Hog Scraper Relationship Specialty Start Date End Date Devon Craven MD PCP - General 05/05/06 Jones Keith Md, Spine Health 09/07/23 documented as of this encounter
--- OUTSIDE RECORDS SUMMARY | 2024-11-03 12:48 | XMS_ITS | Encounter Summary ---
Author Organization [facility] Address [address] [place] [address] Care Team Providers Care Mill Work Name Role Phone Devon Craven MD Primary Care Provider [phone] Jones Keith Md MD Unavailable Unavailable Source Comments In the event this information is protected by the Federal Confidentiality of Alcohol and Drug AbusePatient Records regulations: The Federal rules restrict any use of the information to criminally investigate or prosecute any alcohol or drug abuse patient.[facility] Encounter Details Date Type Department Care Team (Late st Contact Info) Description 06/01/2024 Patient Msg Spine [place] [address] [place] [address] Provider, Ccf ACTION REQUIRED: Skin Preparation before your surgery Social History Tobacco Use Types Packs/Day Years Used Date Smoking Tobacco: Never Smokeless Tobacco: Former Chew Quit: 1999 Alcohol Use Standard Drinks/Week Comments Never 0 (1 standard drink = 0.6 oz pur e alcohol) [facility] Utilities Answer Date Recorded In the past 12 months has [employer], gas, oil, or water company threatened [...] risk 4 08/06/2023 Data from: https://www.neighborhoodatlas.medicine.[facility].edu/. Last address used for calculation [address] [...] on filedocumented in this encounter Care Teams Mill Work Relationship Specialty Start Date End Date Devon Craven MD PCP - General 05/05/06 Jones Keith Md, Spine Health 09/07/23 documented as of this encounter
--- OUTSIDE RECORDS SUMMARY | 2024-11-03 12:48 | XMS_ITS | Encounter Summary ---
Author Organization [facility] Address [address] [place] [address] Care Team Providers Care Order Picker/Assembler Name Role Phone Devon Craven MD Primary Care Provider [phone] Jones Keith Md MD Unavailable Unavailable Source Comments In the event this information is protected by the Federal Confidentiality of Alcohol and Drug AbusePatient Records regulations: The Federal rules restrict any use of the information to criminally investigate or prosecute any alcohol or drug abuse patient.[facility] Encounter Details Date Type Department Care Team (Late st Contact Info) Description 05/06/2024 Patient Msg Spine [place] [address] [place] [address] Provider, Ccf PRE-OP appt are scheduled and PLEASE read all instructions. Social History Tobacco Use Types Packs/Day Years Used Date Smoking Tobacco: Never Smokeless Tobacco: Former Chew Quit: 1999 Alcohol Use Standard Drinks/Week Comments Never 0 (1 standard drink = 0.6 oz pur e alcohol) [facility] Utilities Answer Date Recorded In the past 12 months has [employer], gas, oil, or water company threatened [...] is lower risk 4 08/06/2023 Data from: https://www.neighborhoodatlas.medicine.[facility].edu/. Last address used for calculation [address] [...] on filedocumented in this encounter Care Teams Order Picker/Assembler Relationship Specialty Start Date End Date Devon Craven MD PCP - General 05/05/06 Jones Keith Md, Spine Health 09/07/23 documented as of this encounter
--- OUTSIDE RECORDS SUMMARY | 2024-11-03 12:48 | XMS_ITS | Encounter Summary ---
Author Organization [facility] Address [address] [place] [address] Care Team Providers Care Informatica Mdm Architect Name Role Phone Devon Craven MD Primary Care Provider [phone] Jones Keith Md MD Unavailable Unavailable Source Comments In the event this information is protected by the Federal Confidentiality of Alcohol and Drug AbusePatient Records regulations: The Federal rules restrict any use of the information to criminally investigate or prosecute any alcohol or drug abuse patient.[facility] Encounter Details Date Type Department Care Team (Late st Contact Info) Description 02/26/2024 Patient Msg Spine [place] [address] [place] [address] Vivian Collins PA-C [address] [place] [address] Appointment Request Social History Tobacco Use Types Packs/Day Years Used Date Smoking Tobacco: Never Smokeless Tobacco: Former Chew Quit: 1999 Alcohol Use Standard Drinks/Week Comments Never 0 (1 standard drink = 0.6 oz pur e alcohol) [facility] Utilities Answer Date Recorded In the [...] is lower risk 4 08/06/2023 Data from: https://www.neighborhoodatlas.medicine.[facility].edu/. Last address used for calculation [address] [...] on filedocumented in this encounter Care Teams Informatica Mdm Architect Relationship Specialty Start Date End Date Devon Craven MD PCP - General 05/05/06 Jones Keith Md, Spine Health 09/07/23 documented as of this encounter
--- OUTSIDE RECORDS SUMMARY | 2024-11-03 12:48 | XMS_ITS | Encounter Summary ---
Author Organization [facility] Address [address] [place] [address] Care Team Providers Care Cultural Centre Manager Name Role Phone Devon Craven MD Primary Care Provider [phone] Jones Keith Md MD Unavailable Unavailable Source Comments In the event this information is protected by the Federal Confidentiality of Alcohol and Drug AbusePatient Records regulations: The Federal rules restrict any use of the information to criminally investigate or prosecute any alcohol or drug abuse patient.[facility] Encounter Details Date Type Department Care Team (Late st Contact Info) Description 02/03/2024 Get Medical Advice Spine [place] [address] [place] [address] Jones Keith MD [address] [place] [address] Cervical mri Social History Tobacco Use Types Packs/Day Years Used Date Smoking Tobacco: Never Smokeless Tobacco: Former Chew Quit: 1999 Alcohol Use Standard Drinks/Week Comments Never 0 (1 standard drink = 0.6 oz pur e alcohol) [facility] Utilities Answer Date Recorded In the past 12 months has e [employer], gas, oil, or water company threatened to [...] is lower risk 4 08/06/2023 Data from: https://www.neighborhoodatlas.medicine.[facility].edu/. Last address used for calculation [...] on filedocumented in this encounter Care Teams Cultural Centre Manager Relationship Specialty Start Date End Date Devon Craven MD PCP - General 05/05/06 Jones Keith Md, Spine Health 09/07/23 documented as of this encounter
--- OUTSIDE RECORDS SUMMARY | 2024-11-03 12:48 | XMS_ITS | Encounter Summary ---
Author Organization [facility] Address [address] [place] [address] Care Team Providers Care Venetian Blind Tape Cutter Name Role Phone Devon Craven MD Primary Care Provider [phone] Jones Keith Md MD Unavailable Unavailable Source [...] Info) Description 06/29/2024 Patient Msg Cardiology [address] [place] [address] Provider, Ccf Appointment Cancellation Request Social History Tobacco Use Types Packs/Day Years Used Date Smoking Tobacco: Never Smokeless Tobacco: Former Chew Quit: 1999 Alcohol Use Standard Drinks/Week Comments Never 0 (1 standard drink = 0.6 oz pur e alcohol) [facility] Utilities Answer Date Recorded In [...] place to sleep or slept in a group home (including now)? No 08/20/2023 Area Deprivation Index Answer Date Cole rded National Score (1-100), lower number is lower ri sk 61 08/06/2023 State Score (1-10), lower number is lower risk 4 08/06/2023 Data from: https://www.neighborhoodatlas.medicine.[facility].edu/. Last address used for calculation [address] [...] on filedocumented in this encounter Care Teams Venetian Blind Tape Cutter Relationship Specialty Start Date End Date Devon Craven MD PCP - General 05/05/06 Jones Keith Md, Spine Health 09/07/23 documented as of this encounter
--- OUTSIDE RECORDS SUMMARY | 2024-11-03 12:48 | XMS_ITS | Encounter Summary ---
Author Organization [facility] Address [address] [place] [address] Care Team Providers Care Co Founder And President Name Role Phone Devon Craven MD Primary Care Provider [phone] Jones Keith Md MD Unavailable Unavailable Source [...] Info) Description 06/29/2024 Patient Msg Cardiology [address] [place] [address] Provider, Ccf Appointment Cancellation Request Social History Tobacco Use Types Packs/Day Years Used Date Smoking Tobacco: Never Smokeless Tobacco: Former Chew Quit: 1999 Alcohol Use Standard Drinks/Week Comments Never 0 (1 standard drink = 0.6 oz pur e alcohol) [facility] Utilities Answer Date Recorded In the [...] place to sleep or slept in a intermediate (including now)? No 08/20/2023 Area Deprivation Index Answer Date Cole rded National Score (1-100), lower number is lower ri sk 61 08/06/2023 State Score (1-10), lower number is lower risk 4 08/06/2023 Data from: https://www.neighborhoodatlas.medicine.[facility].edu/. Last address used for [...] on filedocumented in this encounter Care Teams Co Founder And President Relationship Specialty Start Date End Date Devon Craven MD PCP - General 05/05/06 Jones Keith Md, Spine Health 09/07/23 documented as of this encounter
--- OUTSIDE RECORDS SUMMARY | 2024-11-03 12:48 | XMS_ITS | Encounter Summary ---
Author Organization [facility] Address [address] [place] [address] Care Team Providers Care Care Support Representative Name Role Phone Devon Craven MD Primary Care Provider [phone] Jones Keith Md MD Unavailable Unavailable Source [...] Contact Info) Description 05/19/2024 Patient Msg [facility] [place] [address] [place] [address] Provider, Ccf Important Reminder for Preparing Your Skin for Surgery Social History Tobacco Use Types Packs/Day Years Used Date Smoking Tobacco: Never Smokeless Tobacco: Former Chew Quit: 1999 Alcohol Use Standard Drinks/Week Comments Never 0 (1 standard drink = 0.6 oz pur e alcohol) [facility] Utilities Answer Date Recorded In the past 12 months has [employer] electric, gas, oil, or water company threatened [...] lower risk 4 08/06/2023 Data from: https://www.neighborhoodatlas.medicine.[facility].edu/. Last address used for calculation [...] on filedocumented in this encounter Care Teams Care Support Representative Relationship Specialty Start Date End Date Devon Craven MD PCP - General 05/05/06 Jones Keith Md, Spine Health 09/07/23 documented as of this encounter
--- OUTSIDE RECORDS SUMMARY | 2024-11-03 12:48 | XMS_ITS | Encounter Summary ---
Author Organization [facility] Address [address] [place], [place] [id number] Care Team Providers Care Account Assistant Name Role Phone Devon Craven MD Primary Care Provider [phone] Jones Keith Md MD Unavailable Unavailable Source Comments In the event this information is protected by the Federal Confidentiality of Alcohol and Drug AbusePatient Records regulations: The Federal rules restrict any use of the information to criminally investigate or prosecute any alcohol or drug abuse patient.[facility] Encounter Details Date Type Department Care Team (Late st Contact Info) Description 07/31/2023 Patient Msg Pre Anesthesia [address] [place], [place] [id number] Provider, Ccf PACC appt check in Social [...] is lower risk 4 04/30/2023 Data from: https://www.neighborhoodatlas.[facility].edu/. Last address used for calculation [address] [...] on filedocumented in this encounter Care Teams Account Assistant Relationship Specialty Start Date End Date Devon Craven MD PCP - General 05/05/06 Jones Keith Md, MD Spine Health 09/07/23 documented as of this encounter
--- OUTSIDE RECORDS SUMMARY | 2024-11-03 12:50 | XMS_ITS | Encounter Summary ---
Author Organization [facility] Address [address] [place], [place] [id number] Care Team Providers Care Aircraft Refueler Name Role Phone Devon Craven MD Primary Care Provider [phone] Jones Keith Md MD Unavailable Unavailable Source Comments In the event this information is protected by the Federal Confidentiality of Alcohol and Drug AbusePatient Records regulations: The Federal rules restrict any use of the information to criminally investigate or prosecute any alcohol or drug abuse patient.[facility] Encounter Details Date Type Department Care Team (Late st Contact Info) Description 01/14/2024 [place] [address] Provider, Ccf Actionable Imaging Result Notification Patient Outreach Social History Tobacco Use Types Packs/Day Years Used Date Smoking Tobacco: Never Smokeless Tobacco: Former Chew Quit: 1999 Alcohol Use Standard Drinks/Week Comments Never 0 (1 standard drink = 0.6 oz pur e alcohol) [facility] Utilities Answer Date Recorded In [...] risk 4 08/06/2023 Data from: https://www.neighborhoodatlas.medicine.[facility].edu/. Last address used for calculation [address] [...] of Assessment Author No 10/04/2023 11:49 AM Lius Parrish RN * Because of a physical, [...] on filedocumented in this encounter Care Teams Aircraft Refueler Relationship Specialty Start Date End Date Devon Craven MD PCP - General 05/05/06 Jones Keith Md, Spine Health 09/07/23 documented as of this encounter
--- OUTSIDE RECORDS SUMMARY | 2024-11-03 12:50 | XMS_ITS | Encounter Summary ---
Author Organization [facility] Address [address] [place] [address] Care Team Providers Care Discotheque Dancer Name Role Phone Devon Craven MD Primary Care Provider [phone] Reason for Referral * Consultation (Stat) - Authorized Specialty Diagnoses / Procedures Referred By Lencho atkins Referred To Contact Vascular Surgery Diagnoses Neurogenic ulcer, 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) PAD (peripheral artery disease) Absent pulse Procedures [place] OFFICE/OUTPATIENT NEW HIGH MDM 60 MINUTES Mahamed Jeter DPM [address] [place] [address] Phone: tel: fax: Xander Zayas MD [address] [place] [address] Phone: tel: fax: Referral ID Status Reason Start Date Expiration Date Visits Requested Visits Authorized [id number] Authorized Specialty Services Required 09/28/2024 03/27/2025 1 1 Reason for Visit * Reason Onset Date Comments Vascular referral 09/28/2024 Encounter Details Date Type Department Care Team (Late st Contact Info) Description 09/28/2024 Results Follow-Up [facility] [address] [place] [address] Mahamed Jeter DPM [address] [place] [address] VASC US PVR/SEGMENTAL PRESSURES LOWER Social History Tobacco Use Types Packs/Day Years [...] Telephone Encounter - RT. Michael Keating - 09/28/2024 7:37 PM EDT LM for patient to contact office so I can let him know about referral to Vascular. Also sent patient a [employer] message. * Telephone Encounter - RT. Michael Keating - 09/28/2024 7:33 PM EDT Vascular consult ordered and sent to referral department to have approved by insurance and scheduled. * Telephone Encounter - RT. Michael Keating - 09/28/2024 7:33 PM EDT ----- Message from Dr. Mahamed Jeter sent at 09/28/2024 8:38 AM EDT ----- I would order a vascular Referral/consultation after seeing these results. ----- Message ----- From: Interface, Radiology Results In Sent: 09/28/2024 7:59 AM EDT To: Mahamed Jeter DPM * Result Encounter Note - Mahamed Jeter DPM - 09/28/2024 8:38 AM EDT I would order a vascular Referral/consultation after seeing these results. documented in this encounter Plan of Treatment Scheduled Referrals Name Type Priority Associated Diagnoses Order Schedule Ambulatory referral to Vascular Surgery Outpatient Referral STAT Neurogenic ulcer, 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) PAD (peripheral artery disease) Absent pulse Expected: 09/28/2024 (Approximate), Expires: 03/31/2025 documented as of this encounter Visit Diagnoses Diagnosis Neurogenic ulcer, 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) PAD (peripheral artery disease) Unspecified peripheral vascular disease Absent pulse Other symptoms involving cardiovascular system documented in this encounter Care Teams Discotheque Dancer Relationship Specialty Start Date End Date Devon Craven MD [address] [place] [address] PCP - General Family Medicine 09/08/24 documented as of this encounter
--- OUTSIDE RECORDS SUMMARY | 2024-11-03 12:50 | XMS_ITS | Encounter Summary ---
Author Organization [facility] Address [address] [place] [address] Care Team Providers Care Broach Grinder Name Role Phone Devon Craven MD Primary Care Provider [phone] Jones Keith Md MD Unavailable Unavailable Source Comments In the event this information is protected by the Federal Confidentiality of Alcohol and Drug AbusePatient Records regulations: The Federal rules restrict any use of the information to criminally investigate or prosecute any alcohol or drug abuse patient.[facility] Reason for Visit * Reason Onset Date Comments Refill Request 10/23/2023 Encounter Details Date Type Department Care Team (Late st Contact Info) Description 10/23/2023 Refill [facility] [place] [address] [place] [id number] Vivian Collins PA-C [address] [place] [address] Refill Request Social History Tobacco Use Types Packs/Day Years Used Date Smoking Tobacco: Never Smokeless Tobacco: Former Chew Quit: 1999 Alcohol Use Standard Drinks/Week Comments Never 0 (1 standard drink = 0.6 oz pur e alcohol) [facility] Utilities Answer Date Recorded In the [...] place to sleep or slept in a penitentiary (including now)? No 08/20/2023 Area Deprivation Index Answer Date Cole rded National Score (1-100), lower number is lower ri sk 61 08/06/2023 State Score (1-10), lower number is lower risk 4 08/06/2023 Data from: https://www.neighborhoodatlas.medicine.[facility].edu/. Last address used for calculation [address] [...] - 10/23/2023 10:39 AM EDT Already filled [facility] documented in this encounter Plan of Treatment Not on file documented as of this encounter Visit Diagnoses Diagnosis Post-op pain Other acute postoperative pain documented in this encounter Care Teams Broach Grinder Relationship Specialty Start Date End Date Devon Craven MD PCP - General 05/05/06 Jones Keith Md, Spine Health 09/07/23 documented as of this encounter
--- OUTSIDE RECORDS SUMMARY | 2024-11-03 12:50 | XMS_ITS | Encounter Summary ---
Author Organization [facility] Address [address] [place] [address] Care Team Providers Care Garment Tag Stringer Name Role Phone Devon Craven MD Primary Care Provider [phone] Reason for Visit * Reason Onset Date Comments Complete 09-17-2024 office note for Smita 0 09/27/2024 Encounter Details Date Type Department Care Team (Late st Contact Info) Description 09/27/2024 Telephone [facility] [address] [place] [address] [place] RT. R Complete 09-17-2024 office [...] Telephone Encounter - RT. Michael Keating - 10/20/2024 7:43 AM EDT Note still open. * Telephone Encounter - RT. Michael Keating - 10/05/2024 12:42 PM EDT Note still open. * Telephone Encounter - Mary Ann Alegria - 10/01/2024 9:57 AM EDT Florinda from [facility] she need clinical notes for 09/17/24 to proceed in getting pt stuff. * Telephone Encounter - RT. Zuri R - 09/27/2024 10:44 AM EDT Smita needs patient's 09-17-2024 office notes so they can do precert for his brace. Please complete note so I can fax it to them. FAX # [phone]. Thanks. documented in this encounter Plan of Treatment Not on file documented as of this encounter Visit Diagnoses Not on filedocumented in this encounter Care Teams Garment Tag Stringer Relationship Specialty Start Date End Date Devon Craven MD [address] [place] [address] PCP - General Family Medicine 09/08/24 documented as of this encounter
--- OUTSIDE RECORDS SUMMARY | 2024-11-03 12:50 | XMS_ITS | Clinical Summary ---
Author Organization [facility] Address [address] [place] [address] Phone Care Team Providers Care Chef'S Assistant Name Role Phone Devon Craven MD Primary Care Provider [phone] Social History Tobacco Use Types Packs/Day Years [...] 1975 DTaP/Tdap/Td Vaccines (1 - Tdap) 1979 PSA Prostate Cancer Screening 2007 Pneumococcal Vaccine (1 of 1 - PCV) [...] age to complete this topic Care Teams Chef'S Assistant Relationship Specialty Start Date End Date Devon Craven MD [address] [facility] [place] [address] PCP - General 05/03/11
--- OUTSIDE RECORDS SUMMARY | 2024-11-03 12:50 | XMS_ITS | Encounter Summary ---
Author Organization [facility] Address [address] [place] [address] Care Team Providers Care Sound Engineering Technician Name Role Phone Devon Craven MD Primary Care Provider [phone] Jones Keith Md MD Unavailable Unavailable Source Comments In the event this information is protected by the Federal Confidentiality of Alcohol and Drug AbusePatient Records regulations: The Federal rules restrict any use of the information to criminally investigate or prosecute any alcohol or drug abuse patient.[facility] Reason for Visit * Reason Onset Date Comments Refill Request 11/19/2023 Encounter Details Date Type Department Care Team (Late st Contact Info) Description 11/19/2023 Refill [facility] [place] [address] [id number] Vivian Collins PA-C [address] [place] [address] Refill Request Social History Tobacco Use Types Packs/Day Years Used Date Smoking Tobacco: Never Smokeless Tobacco: Former Chew Quit: 1999 Alcohol Use Standard Drinks/Week Comments Never 0 (1 standard drink = 0.6 oz pur e alcohol) [facility] Utilities Answer Date Recorded In the [...] is lower risk 4 08/06/2023 Data from: https://www.neighborhoodatlas.medicine.[facility].edu/. Last address used for calculation [address] [...] pain documented in this encounter Care Teams Sound Engineering Technician Relationship Specialty Start Date End Date Devon Craven MD PCP - General 05/05/06 Jones Keith Md, MD Spine Health 09/07/23 documented as of this encounter
--- OUTSIDE RECORDS SUMMARY | 2024-11-03 12:50 | XMS_ITS | Encounter Summary ---
Author Organization [facility] Address [address] [place] [address] Care Team Providers Care Draw Machine Operator Name Role Phone Devon Craven MD Primary Care Provider [phone] Encounter Details Date Type Department Care Team (Late st Contact Info) Description 09/28/2024 External Result Encounter [facility] External Department Unsolicited Mahamed Jeter, DPM [address] [place] [address] Social History Tobacco Use Types Packs/Day Years [...] on file documented as of this encounter Procedures Procedure Name Priority Date/Time Associated Diagnosis Comments VAS US PVR/SEGMENTAL PRESSURES LOWER 09/28/2024 7:55 AM EDT documented in this encounter Results * VASC US PVR/SEGMENTAL PRESSURES LOWER (09/28/2024 7:55 AM EDT) Anatomical Region Laterality Modality Right Ultrasound 09/28/2024 7:55 AM EDT Impressions 09/28/2024 7:58 AM EDT MILD PERIPHERAL ARTERIAL DISEASE OF THE bilateral LOWER EXTREMITY AT REST. THE PATIENT IS MOST LIKELY TO HAVE diffuse DISEASE OF THE bilateral LOWER EXTREMITY. Significant vessel calcification was identified in the bilateral lower extremities. However, based on waveform analysis the patient has mild disease. Impression dictated by: Xander Zayas MD,FACS,FSVS 09/28/2024 7:56 AM Dictation Location: [place] [address] Tech: Shania Aguilar Transcribed By: ERYN 09/28/24755 Dictated By: Xander Zayas MD 09/28/24754 Signed By: <Electronically signed by Xander Zayas MD in OV> 09/28/24755 Narrative 09/28/2024 7:58 AM EDT [place] [id number] Ultrasound Report Signed Patient: Raza Rodriguez MR#: [id number] : 1955 Acct:[id number] Age/Sex: 69 / M ADM Date: 09/27/24 Loc: Room: Type: [facility] Attending Dr: Mahamed Jeter DPM, Ordering Provider: Mahamed Jeter DPM, MS, CWS Date of Service: 09/27/24 US/US arterial pvr rest LE: L96.491, i73.9, R09.89 Copies to: Mahamed Jeter DPM, MS, CWS LOWER EXTREMITY SEGMENTAL ARTERIAL DOPSCAN (PVR) INDICATION: Bilateral great toe ulcers, left heel wound. PROCEDURE: Right arm blood pressure is 148 , left is 142 . Pressures throughout the right leg are cno at the high thigh, 207 at the low thigh, cno at the calf, cno at the ankle using the posterior tibial artery and cno at the ankle using the dorsalis pedis artery with ankle- brachial index of -NC- -NC- . Pressures throughout the left leg are cno at the high thigh, 211 at the low thigh, cno at the calf, cno at the ankle using the posterior tibial artery and cno at the ankle using the dorsalis pedis artery with ankle-brachial index of -NC- -NC- . Wave forms by plethysmography are multiphasic, bilaterally. US/US arterial pvr rest LE Procedure Note Xander Zayas MD - 09/28/[address] [place] [address] Ultrasound Report Signed Patient: Raza Rodriguez LMR#: [id number] : 8Acct:[id number] Age/Sex: 69 / MADM Date: 09/27/24 Loc: Room:Type: [facility] CLI Attending Dr: Mahamed Jeter DPM, Ordering Provider: Mahamed Jeter DPM, MS, CWS Date of Service: 09/27/24 US/US arterial pvr rest LE: L96.491, i73.9,R09.89 Copies to: Mahamed Jeter DPM, MS, CWS LOWER EXTREMITY SEGMENTAL ARTERIAL DOPSCAN (PVR) INDICATION: Bilateral great toe ulcers, left heel wound. PROCEDURE: Right arm blood pressure is 148 , left is 142 . Pressuresthroughout the right leg are cno at the high thigh, 207 at the low thigh, cno at the calf,cno at the ankle using the posterior tibial artery and cno at the ankle using the dorsalis pedisartery with ankle- brachial index of -NC- -NC- . Pressures throughout the left leg are cno at the high thigh, 211 at thelow thigh, cno at the calf, cno at the ankle using the posterior tibial artery and cno at theankle using the dorsalis pedis artery with ankle-brachial index of -NC- -NC- . Wave forms by plethysmography are multiphasic, bilaterally. US/US arterial pvr rest LE IMPRESSION: MILD PERIPHERAL ARTERIAL DISEASE OF THE bilateral LOWER EXTREMITY AT REST.THE PATIENT IS MOST LIKELY TO HAVE diffuse DISEASE OF THE bilateral LOWER EXTREMITY.Significant vessel calcification was identified in the bilateral lower extremities. However, based onwaveform analysis the patient has mild disease. Impression dictated by: Xander Zayas MD,FACS,FSVS 09/28/2024 7:56AM [facility] Tech: Shania Aguilar Transcribed By: ERYN 09/28/24 0756 Dictated By: Xander Zayas MD 09/28/24 0755 Signed By: <Electronically signed by Xander Zayas MD inOV> 09/28/24 0756 us Mahamed Jeter DPM IMG US PROCEDURES Final Resu lt documented in this encounter Visit Diagnoses Not on filedocumented in this encounter Care Teams Draw Machine Operator Relationship Specialty Start Date End Date Devon Craven MD [address] [place] [address] PCP - General Family Medicine 09/08/24 documented as of this encounter
--- OUTSIDE RECORDS SUMMARY | 2024-11-03 12:51 | XMS_ITS | Clinical Summary ---
Author Organization [facility] Address [address] [place], [place] [id number] Care Team Providers Care House Rn Name Role Phone Devon Craven MD Primary Care Provider [phone] Jones Keith Md MD Unavailable Unavailable Allergies [...] with Jones Hogue MD -Plan discussed with Joens Hogue MD Acute postoperative pain 06/08/2024 Assessment [...] with Dr. Keith. Recommend patient wear a [place] J cervical collar for 4 weeks after [...] with Dr. Keith. Recommend patient wear a [place] J cervical collar for 4 weeks after [...] Neoplasm of uncertain behavior of skin 9 Family History Medical History Relation Comments Cancer [...] the past 12 months has th e [employer], gas, oil, or water [employer] threatened to shut off services in your [...] place to sleep or slept in a alf (including now)? No 08/20/2023 Area Deprivation Index Answer Date Cole rded National Score (1-100), lower number is lower ri sk 61 08/06/2023 State Score (1-10), lower number is lower risk 4 08/06/2023 Data from: https://www.neighborhoodatlas.medicine.[facility].edu/. Last address used for calculation [...] - Risk 60-74 years 1-dose series) 2017 Advance Directive Discussion 03/10/2024 Influenza Vaccine (#1) 2024 12/29/2020 Prostate Cancer Screening Discussion 12/28/2026 12/28/2021 Diabetes Screening 06/09/2027 06/08/2024, 0 06/07/2024, 06/06/2024, Additional history exists Medical Devices Implanted Type Area Ela Teacher Device Identifier Shelf Expiration Date Model / Serial / Lot Signify Gel Instafill Cartridge 5cc [id number] Implanted:Qty: 1 on 08/19/2023 at [facility] Accessories N/A: Spine - Lumbar [employer] 04/28/2027 8112.5105 S / / [id number] Creo Mis Locking Cap Implanted:Qty: 8 on 08/19/2023 at [facility] Accessories N/A: Spine - Lumbar [employer] 1134.0010 / / Graft Infuse 20ga Medium Bovine Collagen Rhbmp-2 2x1in Bone Vial Absorbable - [id number] Implanted:Qty: 1 on 08/19/2023 by Jones Keith MD at [facility] Bone N/A: Spine - Lumbar [employer]K 04/10/2025 [id number] / / [id number] C Signify Gel Instafill Cartridge 5cc [id number] Implanted:Qty: 1 on 08/19/2023 at [facility] Bone N/A: Spine - Lumbar [employer] 04/28/2027 8112.5105 S / / [id number] Plate Canopy 9mm Bone Shelf Inline Spine - [id number] Implanted:Qty: 3 on 06/02/2024 at [facility] Plate N/A: Spine - Cervical [employer] 1102.3009 / / Creo Mis 5.5mm Curved Asa Ti Alloy 10cm Implanted:Qty: 1 on 08/19/2023 at [facility] Asa N/A: Spine - Lumbar [employer] 1134.7100 / / Creo Mis 5.5mm Curved Asa Ti Alloy 11cm Implanted:Qty: 1 on 08/19/2023 at [facility] Asa N/A: Spine - Lumbar [employer] 1134.7110 / / 4.5x45 Implanted:Qty: 1 on 08/19/2023 at [facility] Screw N/A: Spine - Lumbar [employer] 1134.1445 / / 5.0x45 Implanted:Qty: 1 on 08/19/2023 at [facility] Screw N/A: Spine - Lumbar [employer] 1134.1445 / / Creo One Robotic Modular Screw 6.5mm X 50mm Implanted:Qty: 2 on 08/19/2023 at [facility] Screw N/A: Spine - Lumbar [employer] 1134.1650 / / Creo One Robotic Modular Screw 6.5mm X 55mm Implanted:Qty: 4 on 08/19/2023 at [facility] Screw N/A: Spine - Lumbar [employer] 1134.1655 / / Screw Canopy 2.6mm 4mm Bone Self Drill Laminoplasty Spine - [id number] Implanted:Qty: 5 on 06/02/2024 at [facility] Screw N/A: Spine - Cervical [facility] 1102.6004 / / Canopy 2.6mm Screw Self-Drilling 6mm Implanted:Qty: 6 on 06/02/2024 at [facility] Screw N/A: Spine - Cervical [facility] MEDICAL 1102.6006 / / Bilat Iol 11/2022 Eye - Cornea Spacer Rise-L 3d Lordotic [id number] Spinal Nonsterile Implanted:Qty: 1 on 08/19/2023 at [facility] N/A: Spine - Lumbar [employer] 193.506 / / Spacer Rise-L 3d Lordotic [id number] Spinal Nonsterile Implanted:Qty: 2 on 08/19/2023 at [facility] N/A: Spine - Lumbar [facility] MEDICAL 193.505 / / Procedures Procedure Name Priority Date/Time Associated Diagnosis Comments COMPREHENSIVE METABOLIC PANEL Routine 06/08/2024 6:26 AM EDT from Last 3 Months or Most Recently Relevant to Health Maintenance Results * (ABNORMAL) COMPREHENSIVE METABOLIC PANEL (06/08/2024 6:26 AM EDT) Pathologist [facility] Protein, Total 6.1(L) 6.3 - 8.0 g/dL 06/08/2024 9:32 AM EDT [facility] Albumin 3.5(L) 3.9 - 4.9 g/dL 06/08/2024 9:32 AM EDT [facility] Calcium, Total 9.5 8.5 - 10.2 mg/dL 06/08/2024 9:32 AM [facility] Bilirubin, Total 0.8 0.2 - 1.3 mg/dL 06/08/2024 9:32 AM [facility] Alkaline Phosphatase 80 38 - 113 U/L 06/08/2024 9:32 AM [facility] AST 25 14 - 40 U/L 06/08/2024 9:32 AM [facility] Comment:Results may be false ly increased due to interference from hemolysis. Suggest reorder as clinically indicated. ALT 10 10 - 54 U/L 06/08/2024 9:32 AM [facility] Glucose 90 74 - 99 mg/dL 06/08/2024 9:32 AM [facility] Comment: The [place] Diabetes Association (ADA) provides guidance for cutoff [...] Standards of Medical Care in Diabetes 2016, [place] Diabetes Association. Diabetes Care. 2016.39(Suppl 1). BUN 16 9 - 24 mg/dL 06/08/2024 9:32 AM [facility] Creatinine 0.76 0.73 - 1.22 mg/dL 06/08/2024 9:32 AM [facility] Sodium 143 136 - 144 mmol/L 06/08/2024 9:32 AM [facility] Potassium 4.2 3.7 - 5.1 mmol/L 06/08/2024 9:32 AM [facility] Chloride 106 98 - 107 mmol/L 06/08/2024 9:32 AM [facility] CO2 24 22 - 30 mmol/L 06/08/2024 9:32 AM EDT [facility] Anion Gap 13 8 - 15 mmol/L 06/08/2024 9:32 AM EDT [facility] Estimated Glomerular Filtration Rate 99 >=60 mL/min/1.7 3m 06/08/2024 9:32 AM EDT [facility] Comment:Estimated Glomerular Filtration Rate (eGFR) is [...] 06/08/2024 7:[address] TREATING MACHINE OPERATOR.CRITICAL CARE TRANSPORT NURSE LABORATORY Final Result [facility] [address] [place] [address], from Last 3 Months or Most Recently Relevant to Health Maintenance Insurance [facility] [employer] CHOICE PLUS Advance Directives * Full Code (Latest Code Status on File) Date Activated Date Inactivated Comments 09/08/2023 1:22 AM 09/10/2023 7:51 PM Question Answer Comments Full Code Order Discussed With: Patient Care Teams House Rn Relationship Specialty Start Date End Date Devon Craven MD PCP - General 05/05/06 Jones Keith Md, Spine [facility] 09/07/23
--- OUTSIDE RECORDS SUMMARY | 2024-11-03 12:51 | XMS_ITS | Encounter Summary ---
Author Organization [facility] Address [address] [place] [address] Care Team Providers Care Recycling Specialist Name Role Phone Devon Craven MD Primary Care Provider [phone] Jones Keith Md MD Unavailable Unavailable Source Comments In the event this information is protected by the Federal Confidentiality of Alcohol and Drug AbusePatient Records regulations: The Federal rules restrict any use of the information to criminally investigate or prosecute any alcohol or drug abuse patient.[facility] Reason for Visit * Reason Onset Date Comments Refill Request 11/11/2023 Encounter Details Date Type Department Care Team (Late st Contact Info) Description 11/11/2023 Refill [facility] [place] [address] [id number] Vivian Collins PA-C [address] [place] [address] Refill Request Social History Tobacco Use Types Packs/Day Years Used Date Smoking Tobacco: Never Smokeless Tobacco: Former Chew Quit: 1999 Alcohol Use Standard Drinks/Week Comments Never 0 (1 standard drink = 0.6 oz pur e alcohol) [facility] Utilities Answer Date Recorded In the [...] place to sleep or slept in a skilled nursing (including now)? No 08/20/2023 Area Deprivation Index Answer Date Cole rded National Score (1-100), lower number is lower ri sk 61 08/06/2023 State Score (1-10), lower number is lower risk 4 08/06/2023 Data from: https://www.neighborhoodatlas.medicine.[facility].edu/. Last address used for calculation [...] Assessment Author No 10/04/2023 11:49 AM Luis Parirsh RN * Do you have serious difficulty [...] pain documented in this encounter Care Teams Recycling Specialist Relationship Specialty Start Date End Date Devon Craven MD PCP - General 05/05/06 Jones Keith Md, MD [facility] 09/07/23 documented as of this encounter
--- OUTSIDE RECORDS SUMMARY | 2024-11-03 12:51 | XMS_ITS | Clinical Summary ---
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 R Complete 09-17-2024 office note for Smita 09/21/2024 Telephone [facility] [place] [facility] [address] [place] [address] [place] RT. 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); PAD (peripheral artery disease); Absent pulse 09/17/2024 Bamboo flowsheet [facility] [place] [facility] [address] [place] [address] Mahamed Jeter DPM 09/17/2024 Travel from Last [...] Sign Reading Time Taken Comments Blood Pressure 148/80 10/06/2024 4:07 PM EDT Pulse 48 10/06/2024 4:07 PM EDT Temperature 37.1 C (98.7 F) 10/06/2024 4:07 PM EDT Respiratory Rate - - Oxygen Saturation - - Inhaled Oxygen Concentration - - Weight - - Height - - Body Mass Index - - Plan of Treatment Health Maintenance Due Date Last Done Comments CT Colonography 1957 FIT-DNA 1957 FIT 1957 FOBT 1955 Sigmoidoscopy 1955 Pneumococcal Vaccine: 65+ Years (1 of 1 - PCV) 008 Influenza Vaccine (#1) 2024 12/29/2020 Colonoscopy 11/25/2033 11/26/2023 Colorectal Cancer Screening 11/25/2033 Procedures Procedure Name Priority Date/Time Associated Diagnosis Comments VASC US PVR/SEGMENTAL PRESSURES LOWER 09/28/2024 7:55 AM EDT PREALBUMIN Routine 09/17/2024 12:44 PM EDT Neurogenic [...] (HCC) from Last 3 Months Results * VASC US PVR/SEGMENTAL PRESSURES LOWER [...] Zayas MD,FACS,FSVS 09/28/2024 7:56 AM Dictation Location: [place] [address] Tech: Shania Aguilar Transcribed By: ERYN 09/28/24755 Dictated By: Xander Zayas MD 09/28/24754 Signed By: <Electronically signed by Xander Zayas MD in OV> 09/28/24755 Narrative 09/28/2024 7:58 AM EDT [facility] Main [place] [address] [place] [address] Ultrasound Report Signed Patient: Raza Rodriguez MR#: [id number] : 1955 Acct:[id number] Age/Sex: 69 / M ADM Date: 09/27/24 Loc: Room: Type: [facility] Attending Dr: Mahamed Jeter DPM, Ordering Provider: Mahamed Jeter DPM, , [place] Date of Service: 09/27/24 US/US arterial pvr rest LE: L96.491, i73.9, R09.89 Copies to: Mahamed Jeter DPM, , [place] LOWER EXTREMITY SEGMENTAL ARTERIAL DOPSCAN (PVR) INDICATION: [...] Procedure Note Xander Zayas MD - 09/28/2024 [facility] Main [place] [address] [place] [address] Ultrasound Report Signed Patient: Raza Rodriguez LMR#: [id number] : 8Acct:[id number] Age/Sex: 69 / MADM Date: 09/27/24 Loc: Room:Type: [facility] Attending Dr: Mahamed Jeter DPM, Ordering Provider: Mahamed Jeter DPM, , [place] Date of Service: 09/27/24 US/US arterial pvr rest LE: L96.491, i73.9,R09.89 Copies to: Mahamed Jeter DPM, , [place] LOWER EXTREMITY SEGMENTAL ARTERIAL DOPSCAN (PVR) INDICATION: [...] Xander Zayas MD,FACS,FSVS 09/28/2024 7:56AM Dictation Location: [place] [address] Tech: Shania Aguilar Transcribed By: ERYN 09/28/24 075 Dictated By: Xander Zayas MD 09/28/24754 Signed By: <Electronically signed by Xander Zayas MD inOV> 09/28/24 075 us Mahamed Jeter DPM IMG US PROCEDURES Final Resu lt * Sedimentation rate, automated (09/17/2024 12:44 PM EDT) [facility] Sed Rate-Westergren 5 0 - 30 mm/hr [facility] Blood Venous blood specimen / Unknown 09/17/2024 12:44 PM EDT 09/17/2024 Narrative [facility] - 09/18/2024 6:07 AM EDT Performed at: - [place] [id number] Tripoler: Scout Ludwig PhD, Phone: [phone] us Mahamed Jeter DPM LAB BLOOD ORDERABLES Final R esult [facility] * (ABNORMAL) CBC and differential (09/17/2024 12:44 PM EDT) [facility] WBC 9.2 3.4 - 10.8 x10E3/uL [facility] [...] - 09/18/2024 6:07 AM EDT Performed at: [address] [place] [id number] Tripoler: Scout Ludwig PhD, Phone: [phone] Mahamed Jeter [facility] LAB BLOOD ORDERABLES Final R esult Performing Organization Address [facility] de Phone Number [facility] * C-reactive protein (09/17/2024 12:44 PM EDT) [facility] C-Reactive Protein Quant 9 0 - 10 mg/L [facility] Blood Venous blood specimen / Unknown 09/17/2024 12:44 PM EDT 09/17/2024 Narrative [facility] - 09/18/2024 6:07 AM EDT Performed at: [address] [place] [id number] Tripoler: Scout Ludwig PhD, Phone: [phone] Mahamed Jeter DP LAB BLOOD ORDERABLES Final R esult Performing Organization Address City/[facility]/ZIP Co de Phone Number [facility] * Prealbumin (09/17/2024 12:44 PM EDT) [facility] PREALBUMIN 26 10 - 36 mg/dL [facility] Blood Venous blood specimen / Unknown 09/17/2024 12:44 PM EDT 09/17/2024 Narrative [facility] - 09/18/2024 6:07 AM EDT Performed at: 01 - [facility] [id number] Tripoler: Scout Ludwig PhD, Phone: [phone] Mahamed Jeter DPM LAB BLOOD ORDERABLES Final R esult [facility] * (ABNORMAL) Comprehensive metabolic panel (09/17/2024 12:44 PM EDT) [facility] Glucose 89 70 - 99 mg/dL [facility] [...] 6:07 AM EDT Performed at: [address] - [facility] [id number] Tripoler: Scout Ludwig PhD, Phone: [phone] Mahamed Jeter DPM LAB BLOOD ORDERABLES Final R esult [facility] from Last 3 Months Insurance [facility] Care Teams Stenographer Secretary Relationship Specialty Start Date End Date Devon Craven MD [address] [place] [address] PCP - General Family Medicine 09/08/24
--- OUTSIDE RECORDS SUMMARY | 2024-11-03 13:00 | XMS_ITS | CCD ---
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 Name Role Phone ESTER CAIN Referring Unavailable [...] Unavailable MD Ester Cain Primary Care Provider [phone] MD Shae Guillory Attending Provider [phone] Ester Cain MD M Primary Care Provider [phone] Ester Cain MD M Primary Care Provider [phone] PELLE, KATHERINE Referring Unavailable HOY, ESTER M Primary Care Unavailable PELLE, KATHERINE Referring Unavailable HOY, ESTER M Primary Care Unavailable BONUS, ALFONSO M Referring Unavailable HOY, ESTER M Primary Care Unavailable Katherine Sagar JERNIGAN Md Unavailable Unavailable MD Ester Cain M Primary Care Provider [phone] MD Camryn Agustin Attending Provider PELLE, KATHERINE Referring Unavailable HOY, ESTER [...] Unavailable HOY, ESTER M Primary Care Unavailable RHONA BOSS Attending Unavailable PELLE, KATHERINE Referring Unavailable HOY, [...] Unavailable Ester Cain MD Primary Care Provider [phone] Ester Cain MD Primary Care Provider [phone] Mahamed Gray DPM Attending Provider [phone] Camryn Agustin Attending Unavailable Merliny, Ester M Primary Care Unavailable Camryn Agustin Admitting Unavailable Hoy, Ester M Primary Care Unavailable Mahamed Gray Admitting Unavailable Mahamed Gray Attending Unavailable Citlali Purcell Attending Provider MAHAMED GRAY Attending Unavailable MAHAMED GRAY Attending Unavailable NILLCamryn Attending Unavailable NILLCamryn Attending Unavailable NILLCamryn Attending Unavailable Allergies Allergy Classification Reported Allergen(s) Allergy Type Date of Onset Reaction(s) Facility Penicillins (antibiotic) (4 sources) Penicillins Drug Allergy 7 Rash [facility] Repository (9 sources) Penicillin; Translations: [penicillin] Drug Allergy Eruption of skin (disorder) [facility] [place] (13 sources) Penicillins; Translations: [PENICILLINS] Drug allergy (disorder) 7 Rash [facility] Repository (20 sources) Penicillins Propensity to adverse reactions 7 Rash [facility] (20 sources) Methocarbamol; Translations: [methocarbamol] Drug Allergy 4 Patient reported problems (finding), Intolerance [facility] [place] (15 sources) Penicillins Propensity to adverse reactions 7 Rash [facility] (1 source) Unable to Assess Drug allergy (disorder) 3 [facility] Repository (1 source) Methocarbamol Drug Allergy 5 [facility] (1 source) Penicillins Propensity to adverse reactions 5 Hives [facility] (1 source) No Known Medication Allergies; Translations: [No Known Medication Allergies] Propensity to adverse reactions (disorder) [facility] Repository Medications Current Medications Medication Drug Class(es) Dates Sig (Normalized) Sig (Original) acetaminophen 325 mg oral tablet (20 sources) Start: 10-04-2023 take 2 tablets enteral route every six hours as needed acetaminophen (TYLENOL) 325 mg tablet 2 tablets by ORAL/FEEDING TUBE route every 6 hours as needed for pain. 10/04/2023 Active Start: 08-22-2023 take 2 tablets by mo [facility] every four hours acetaminophen (TYLENOL) 325 mg [...] (20 sources) alpha-Adrenergic Janak, beta-Adrenergic Janak Start: 10-06-2024 take 1 tablet by mouth twice daily at mealtime Carvedilol (Coreg) 25 mg tablet Active 25 MG PO Twice daily October 06, 2024 12:00am must administer with a meal/food Complies with drug therapy Start: 11-11-2023 take 1 tablet by mouth once da alejandro carvedilol 25 mg Tab 25 mg = [...] 8.6 mg oral tablet (20 sources) Start: 025 take 2 tablets by mouth every twelve hours as needed senna-docusate (SENNA-S) 8.6-50 mg per tablet Take 2 tablets by mouth two times a day as needed for constipation. 20 tablet 06/08/2024 Active Start: 08-22-2023 take 2 tablets by mo [facility] twice daily senna-docusate (SENNA-S) 8.6-50 mg per tablet Take 2 tablets by mouth two times a day. 20 tablet 08/22/2023 Suspended ferrous sulfate 325 mg delayed release oral tablet (1 source) take 1 tablet by mouth in the morning ferrous sulfate 325 (65 Fe) MG EC tablet Take 325 mg by mouth in the morning and 325 mg in the evening. Take with meals. Do not crush, chew, or split. Active Fish Oils (3 sources) Start: 04-22-19 take 1 capsule by mouth once daily Fish Oil 1 cap, Oral, Daily, Prophylaxis Start Date: 04/22/22 Status: Ordered furosemide 40 mg oral tablet (20 sources) Loop Diuretic take 1 tablet by mouth once daily furosemide (LASIX) 40 mg tablet Take 40 mg by mouth once daily. Active gabapentin 300 mg oral capsule (20 sources) Anti-epileptic Agent Start: 09-10-19 End: 11-08-19 take 1 capsule by mouth every eight hours gabapentin (NEURONTIN) 300 mg capsule Take 1 capsule by mouth every 8 hours for 30 days. 90 capsule 10/09/2023 Active isoniazid 300 mg oral tablet (1 source) Antimycobacterial Start: 09-27-19 take 1 tablet by mouth once daily isoniazid 300 mg Tab 300 mg = 1 tab(s), Oral, Daily, Refills(s) 0 Start Date: 09/26/20 Status: Ordered lidocaine 0.05 mg/mg medicated patch (20 sources) Antiarrhythmic, Amide Local Anesthetic Start: 09-12-19 End: 10-09-19 lidocaine (LIDODERM) 5 % Take as instructed on package 10 Patch 1 10/09/2023 Active lisinopril 20 mg oral tablet (18 sources) Angiotensin Converting Enzyme Inhibitor Start: 04-03-19 take 1 tablet by mouth once daily lisinopril 20 mg Tab 20 mg = 1 tab(s), Oral, Daily, Refills(s) 0 Start Date: 04/03/22 Status: Ordered Start: 07-04-2006 End: 08-06-2023 take 1 tablet by mouth once daily lisinopril 10 mg ORAL Tab Take one(1) tablet daily. 0 07/04/2006 08/06/2023 Discontinued (Discontinued by Patient) Comment on above: Take one(1) tablet d aily. Magnesium (1 source) take 1 tablet by mouth once daily Magnesium 400 MG capsule Take 1 tablet by mouth Daily Active magnesium oxide 500 mg oral capsule (11 [...] oral tablet (20 sources) Opioid Agonist Start: 10-06-2024 Oxycodone 5 mg tablet Active MG PO October 06, 2024 12:00am Complies with drug therapy Start: 06-21-2024 End: 07-05-2024 take 1 tablet [...] days. 56 tablet 0 08/22/2023 08/29/2023 Discontinued take 1 capsule by [facility] every four hours as needed for pain oxyCODONE (Oxy-IR) 5 MG immediate release capsule Take 5 mg by mouth every 4 (four) hours if needed for severe pain Active pregabalin 50 mg oral capsule (20 sources) [...] Refills(s) 0 Start Date: 09/11/22 Status: Ordered tadalafil 5 mg oral tablet (1 source) Phosphodiesterase 5 Inhibitor take 1 tablet by mouth once daily tadalafil (Cialis) 5 MG tablet Take 5 mg by mouth Daily Active tiZANidine 4 mg oral tablet (20 sources) Central alpha-2 Adrenergic Agonist Start: 10-06-2024 Tizanidine 4 mg tablet Active MG PO October 06, 2024 12:00am Complies with drug therapy Start: 06-08-2024 End: 06-15-2024 take 1 tablet [...] 0, Insomnia Start Date: 04/03/22 Status: Ordered tiZANidine (George flex) 4 MG capsule Take 8 mg by mouth at bedtime Active Comment on above: Take 2 tablets [...] colon 12-16-2023 Episodic Other connective tissue disease (20 sources) History of lumbar fusion; Translations: [Arthrodesis status] Onset: 08-19-2023 08-19-2023 Episodic Other connective tissue disease (17 sources) [...] disorders (8 sources) Skin tag 09-28-2020 Episodic Peripheral and visceral atherosclerosis (1 source) Peripheral vascular disease, unspecified; Translations: [Peripheral vascular disease, unspecified] Onset: 09-27-2024 Chronic Residual codes; unclassified (4 sources) H/O Spinal surgery; Translations: [Other specified postprocedural states] 07-11-2023 Episodic Residual codes; unclassified (1 source) Other specified postprocedural states; Translations: [History of laminectomy] Onset: 08-06-2023 Episodic Residual codes; unclassified (1 source) History of hernia repair; Translations: [Other specified postprocedural states] 10-06-2024 Episodic Spondylosis; intervertebral disc disorders; other back [...] Name Value Interpretation Reference Range Facility [facility] 10-29-2024 Reminders Reminders From: Caroline Bird LPN To: N - Clinical; Sent: 12/16/2023 13:08:21 EDT Show up: 10/25/2024 07:00:00 EDT Subject: colonoscopy follow up Due Date/Time: 11/25/2024 07:00:00 EDT Reminder/Recall Patient due for screening colonoscopy 11/25/2024 due to history of villous adenoma. Correction, this is surveillance. Voice mail full. Will call again at later time. Mailbox is full. Will call again at later time. Normal [facility] US arterial pvr rest Coy US arterial pvr rest [place] [address] Ultrasound Report Signed Patient: Braden Rodriguez MR#: [id number] : 1955 Acct:[id number] Age/Sex: 69 / M ADM Date: 09/27/24 Loc: Room: Type: [facility] Attending Dr: Mahamed Gray DPM, Ordering Provider: Mahamed Gray DPM, MS, CWS Date of Service: 09/27/24 US/US arterial pvr rest LE: L96.491, i73.9, R09.89 Copies to: Mahamed Gray,DPM, MS, CWS LOWER EXTREMITY SEGMENTAL ARTERIAL DOPSCAN [...] Zayas MD,FACS,FSVS 09/28/2024 7:56 AM Dictation Location: [place] [address] Tech: Shania Aguilar Transcribed By: ERYN 09/28/24 075 Dictated By: Xander Zayas MD 09/28/24 0755 Signed By: 09/28/24 0756 Normal [facility] CNOVon 06-16-2024 CNOV Normal [facility] CNPNon 06-11-2024 CNPN Normal [facility] 25(OH)D3 SerPl-mCncon 2024 25-hydroxyvitamin D3 [Mass/Vol] 42.5 ng/mL Normal 31.0-80.0 [facility] Comment on above: Order Comment: Speci men Type: BLOOD SPECIMENOrdering Facility: [facility] Address: [address] [place] [address] Result Comment: Clas sification of 25 OH Vitamin D status:Deficiency/Insufficiency: < or = 30 ng/ml.Sufficiency/Optimal Levels: 31-80 ng/mLToxicity: > 100 ng/mL.Test performed by chemiluminescent immunoassay. Performed By: #### 1 989-3 ####[facility] [id number] [address] [address] [place] CBC panel Auto (Bld)on 06-08 Erythrocyte distribution width (RBC) [Ratio] 12.7 % Normal 11.5-15.0 [facility] Comment on above: Order Comment: Speci men Type: BLOOD SPECIMENOrdering Facility: [facility] Address: [address] [place] [address] Performed By: #### 5 8410-2 ####[facility] [id number] [address] [place] Hematocrit (Bld) [Volume fraction] 40.4 % Normal 39.0-51.0 [facility] Comment on above: Order Comment: Speci men Type: BLOOD SPECIMENOrdering Facility: [facility] Address: [address] [place] [address] Performed By: #### 5 8410-2 ####[facility] [id number] [address] [place] Hemoglobin (Bld) [Mass/Vol] 13.2 g/dL Normal 13.0-17.0 [facility] Comment on above: Order Comment: Speci men Type: BLOOD SPECIMENOrdering Facility: [facility] Address: [address] [place] [address] Performed By: #### 5 8410-2 ####[facility] [id number] [place] [id number] [place] MCH (RBC) [Entitic mass] 30.9 pg Normal 26.0-34.0 [facility] Comment on above: Order Comment: Speci men Type: BLOOD SPECIMENOrdering Facility: [facility] Address: [address] [place] [address] Performed By: #### 5 8410-2 ####[facility] LABCLIA [id number] [place] [address] [place] MCHC (RBC) [Mass/Vol] 32.7 g/dL Normal 30.5-36.0 [facility] Comment on above: Order Comment: Speci men Type: BLOOD SPECIMENOrdering Facility: [facility] Address: [address] [place] [address] Performed By: #### 5 8410-2 ####[facility] LABIA [id number] [place] [address] [place] MCV (RBC) [Entitic vol] 94.6 fL Normal 80.0-100.0 [facility] Comment on above: Order Comment: Speci men Type: BLOOD SPECIMENOrdering Facility: [facility] Address: [address] [place] [address] Performed By: #### 5 8410-2 ####[facility] LABIA [id number] [place] [address] [place] Nucleated RBC (Bld) [#/Vol] 10*3/uL Normal <0.01 [facility] Comment on above: Order Comment: Speci men Type: BLOOD SPECIMENOrdering Facility: [facility] Address: [address] [place] [address] Performed By: #### 5 8410-2 ####[facility] LABIA [id number] [place] [address] [place] Platelet mean volume (Bld) [Entitic vol] 10.7 fL Normal 9.0-12.7 [facility] Comment on above: Order Comment: Speci men Type: BLOOD SPECIMENOrdering Facility: [facility] Address: [address] [place] [address] Performed By: #### 5 8410-2 ####[facility] LABIA [id number] [address] [address] [place] Platelets (Bld) [#/Vol] 277 10*3/uL Normal 150-400 [facility] Comment on above: Order Comment: Speci men Type: BLOOD SPECIMENOrdering Facility: [facility] Address: [address] [place] [address] Performed By: #### 5 8410-2 ####[facility] LABCLIA [id number] [place] [address] [place] RBC (Bld) [#/Vol] 4.27 10*6/uL Normal 4.20-6.[address] [facility] Comment on above: Order Comment: Speci men Type: BLOOD SPECIMENOrdering Facility: [facility] Address: [address] [place] [address] Performed By: #### 5 8410-2 ####[facility] LABCLIA [id number] [place] [address] [place] WBC (Bld) [#/Vol] 8.97 10*3/uL Normal 3.70-11.[address] [facility] Comment on above: Order Comment: Speci men Type: BLOOD SPECIMENOrdering Facility: [facility] Address: [address] [place] [address] Performed By: #### 5 8410-2 ####[facility] LABCLIA [id number] [place] [address] [place] CNDSon 06-08-2024 CNDS Normal [facility] Comprehensive metabolic 2000 panelon 06-08-2024 Albumin [Mass/Vol] 3.5 g/dL Low 3.9-4.9 [facility] Comment on above: Order Comment: Speci men Type: BLOOD SPECIMENOrdering Facility: [facility] Address: [address] [place] [address] Performed By: #### 1 9123-9, 94023-8, HSTNT, 2777-1 ####[facility] LABCLIA [id number] [place] [address] [place] ALP [Catalytic activity/Vol] 80 U/L Normal 38-113 [facility] Comment on above: Order Comment: Speci men Type: BLOOD SPECIMENOrdering Facility: [facility] Address: [address] [place] [address] Performed By: #### 1 9123-9, 74604-5, HSTNT, 2777-1 ####[facility] LABCLIA [id number] [place] [address] [place] ALT [Catalytic activity/Vol] 10 U/L Normal 10-54 [facility] Comment on above: Order Comment: Speci men Type: BLOOD SPECIMENOrdering Facility: [facility] Address: [address] [place] [address] Performed By: #### 1 9123-9, 71599-6, HSTNT, 277-1 ####[facility] LABCLIA [id number] [place] [address] [place] Anion gap [Moles/Vol] 13 mmol/L Normal 8-15 [facility] Comment on above: Order Comment: Speci men Type: BLOOD SPECIMENOrdering Facility: [facility] Address: [address] [place] [address] Performed By: #### 1 9123-9, 68832-9, HSTNT, 277-1 ####[facility] LABCLIA [id number] [place] [address] [place] AST [Catalytic activity/Vol] 25 U/L Normal 14-40 [facility] Comment on above: Order Comment: Speci men Type: BLOOD SPECIMENOrdering Facility: [facility] Address: [address] [place] [address] Result Comment: Resu lts may be falsely increased due to interference from hemolysis. Suggest reorder as clinically indicated. Performed By: #### 1 9123-9, 26038-3, HSTNT, 2777-1 ####[facility] LABCLIA [id number] [address] [address] [place] Bilirubin [Mass/Vol] 0.8 mg/dL Normal 0.2-1.3 [facility] Comment on above: Order Comment: Speci men Type: BLOOD SPECIMENOrdering Facility: [facility] Address: [address] [place] [address] Performed By: #### 1 9123-9, 69483-6, HSTNT, 277-1 ####[facility] LABCLIA [id number] [place] [id number] [place] Calcium [Mass/Vol] 9.5 mg/dL Normal 8.5-10.2 [facility] Comment on above: Order Comment: Speci men Type: BLOOD SPECIMENOrdering Facility: [facility] Address: [address] [place] [address] Performed By: #### 1 9123-9, 12623-1, HSTNT, 2776- ####[facility] LABCLIA [id number] [place] [id number] [place] Chloride [Moles/Vol] 106 mmol/L Normal 98-107 [facility] Comment on above: Order Comment: Speci men Type: BLOOD SPECIMENOrdering Facility: [facility] Address: [address] [place] [address] Performed By: #### 1 9123-9, 58132-4, HSTNT, 277- ####[facility] LABCLIA [id number] [address] [address] [place] CO2 [Moles/Vol] 24 mmol/L Normal 22-30 [facility] Comment on above: Order Comment: Speci men Type: BLOOD SPECIMENOrdering Facility: [facility] Address: [address] [place], [place] [address] Performed By: #### 1 9123-9, 08967-2, HSTNT, 277-1 ####[facility] LABCLIA [id number] [place] [address] [place] Creatinine [Mass/Vol] 0.76 mg/dL Normal 0.73-1.22 [facility] Comment on above: Order Comment: Speci men Type: BLOOD SPECIMENOrdering Facility: [facility] Address: [address] [place] [address] Performed By: #### 1 9123-9, 14823-8, T, 2777-1 ####[facility] LABIA [id number] [place] [address] [place] Creatinine and Glomerular filtration rate.predicted panel (S/P/Bld) 99 mL/min/1.73m??? Normal >=60 [facility] Comment on above: Order Comment: Roberto Carlos lion Type: BLOOD SPECIMENOrdering Facility: [facility] Address: [address] [place] [address] Result Comment: Yesica mated Glomerular Filtration Rate [...] actual GFR. Performed By: #### 1 9123-9, 24185-7, [facility], 277-1 ####[facility] LABIA [id number] [place] [id number] [place] Glucose [Mass/Vol] 90 mg/dL Normal 74-99 [facility] Comment on above: Order Comment: Speci men Type: BLOOD SPECIMENOrdering Facility: [facility] Address: [address] [place] [address] Result Comment: The [place] [employer] (ADA) provides guidance for cutoff [...] Standards of Medical Care in Diabetes 2016, [place] [employer]. Diabetes Care. 2016.39(Suppl 1). Performed By: #### 1 9123-9, 00352-4, HSTNT, 2776-1 ####[facility] LABCLIA [id number] [address] [address] [place] Potassium [Moles/Vol] 4.2 mmol/L Normal 3.7-5.1 [facility] Comment on above: Order Comment: Speci men Type: BLOOD SPECIMENOrdering Facility: [facility] Address: [address] [place] [address] Performed By: #### 1 9123-9, 69100-1, HSTNT, 2776- ####[facility] LABIA [id number] [place] [id number] [place] Protein [Mass/Vol] 6.1 g/dL Low 6.3-8.0 [facility] Comment on above: Order Comment: Speci men Type: BLOOD SPECIMENOrdering Facility: [facility] Address: [address] [place] [address] Performed By: #### 1 9123-9, 08112-5, HSTNT, 2776- ####[facility] LABCLIA [id number] [place] [id number] [place] Sodium [Moles/Vol] 143 mmol/L Normal 136-144 [facility] Comment on above: Order Comment: Speci men Type: BLOOD SPECIMENOrdering Facility: [facility] Address: [address] [place] [address] Performed By: #### 1 9123-9, 56866-9, HSTNT, 277- ####[facility] LABCLIA [id number] [address] [address] [place] Urea nitrogen [Mass/Vol] 16 mg/dL Normal 9-24 [facility] Comment on above: Order Comment: Speci men Type: BLOOD SPECIMENOrdering Facility: [facility] Address: [address] [place] [address] Performed By: #### 1 9123-9, 90602-5, HSTNT, 2777-1 ####[facility] LABCLIA [id number] [address] [address] [place] ECG COMPLETEon 06-08-2024 ECG COMPLETE Normal [facility] HIGH SENSITIVITY TROPONIN To n 06-08-2024 Troponin T.cardiac High sensitivity method [Mass/Vol] 28 ng/L High <12 [facility] Comment on above: Order Comment: Speci men Type: BLOOD SPECIMENOrdering Facility: [facility] Address: [address] [place] [address] Performed By: #### 1 9123-9, 96862-9, HSTNT, 2777-1 ####[facility] LABIA [id number] [place] [id number] [place] Magnesium SerPl-mCncon 06-08 Magnesium [Mass/Vol] 2.0 mg/dL Normal 1.7-2.3 [facility] Comment on above: Order Comment: Speci men Type: BLOOD SPECIMENOrdering Facility: [facility] Address: [address] [place] [address] Performed By: #### 1 9123-9, 15675-6, HSTNT, 2777-1 ####[facility] LABIA [id number] [place] [id number] [place] Phosphate SerPl-mCncon 06-08 Phosphate [Mass/Vol] 3.3 mg/dL Normal 2.7-4.8 [facility] Comment on above: Order Comment: Speci men Type: BLOOD SPECIMENOrdering Facility: [facility] Address: [address] [place] [address] Performed By: #### 1 9123-9, 78118-6, HSTNT, 2777-1 ####[facility] LABCLIA [id number] [place] [address] [place] CASE MANAGEMon 06-07-2024 CASE MANAGEM Normal [facility] CBC W Auto Differential pane l (Bld)on 06-07-2024 Basophils (Bld) [#/Vol] 0.06 10*3/uL Normal <0.11 [facility] Comment on above: Order Comment: Speci men Type: BLOOD SPECIMENOrdering Facility: [facility] Address: [address] [place] [address] Performed By: #### 5 7021-8 ####[facility] LABCLIA [id number] [place] [address] [place] Basophils/100 WBC (Bld) 0.6 % Normal [facility] Comment on above: Order Comment: Speci men Type: BLOOD SPECIMENOrdering Facility: [facility] Address: [address] [place] [address] Performed By: #### 5 7021-8 ####[facility] LABCLIA [id number] [place] [address] [place] Differential cell count method Nom (Bld) Auto Normal [facility] Comment on above: Order Comment: Speci men Type: BLOOD SPECIMENOrdering Facility: [facility] Address: [address] [place] [address] Performed By: #### 5 7021-8 ####[facility] LABCLIA [id number] [place] [address] [place] Eosinophils (Bld) [#/Vol] 0.32 10*3/uL Normal <0.46 [facility] Comment on above: Order Comment: Speci men Type: BLOOD SPECIMENOrdering Facility: [facility] Address: [address] [place] [address] Performed By: #### 5 7021-8 ####[facility] LABCLIA [id number] [address], [facility] [place] Eosinophils/100 WBC (Bld) 3.2 % Normal [facility] Comment on above: Order Comment: Speci men Type: BLOOD SPECIMENOrdering Facility: [facility] Address: [address] [place] [address] Performed By: #### 5 7021-8 ####[facility] LABCLIA [id number] [address], [place] [address] [place] Erythrocyte distribution width (RBC) [Ratio] 13.0 % Normal 11.5-15.0 [facility] Comment on above: Order Comment: Speci men Type: BLOOD SPECIMENOrdering Facility: [facility] Address: [address] [place] [address] Performed By: #### 5 7021-8 ####[facility] LABIA [id number] [address], [facility]95 [place] Hematocrit (Bld) [Volume fraction] 37.7 % Low 39.0-51.0 [facility] Comment on above: Order Comment: Speci men Type: BLOOD SPECIMENOrdering Facility: [facility] Address: [address] [place] [address] Performed By: #### 5 7021-8 ####[facility] LABCLIA [id number] [address], [facility]95 [place] Hemoglobin (Bld) [Mass/Vol] 12.4 g/dL Low 13.0-17.0 [facility] Comment on above: Order Comment: Speci men Type: BLOOD SPECIMENOrdering Facility: [facility] Address: [address] [place] [address] Performed By: #### 5 7021-8 ####[facility] LABIA [id number] [address], [facility]95 [place] Immature granulocytes (Bld) [#/Vol] 0.14 10*3/uL High <0.10 [facility] Comment on above: Order Comment: Speci men Type: BLOOD SPECIMENOrdering Facility: [facility] Address: [address] [place] [address] Performed By: #### 5 7021-8 ####[facility] LABCLIA [id number] [place] [address] [place] Immature granulocytes/100 WBC (Bld) 1.4 % Normal [facility] Comment on above: Order Comment: Speci men Type: BLOOD SPECIMENOrdering Facility: [facility] Address: [address] [place] [address] Performed By: #### 5 7021-8 ####[facility] LABCLIA [id number] [place] [address] [place] Lymphocytes (Bld) [#/Vol] 2.70 10*3/uL Normal 1.00-4.00 [facility] Comment on above: Order Comment: Speci men Type: BLOOD SPECIMENOrdering Facility: [facility] Address: [address] [place] [address] Performed By: #### 5 7021-8 ####[facility] LABCLIA [id number] [place] [address] [place] Lymphocytes/100 WBC (Bld) 26.8 % Normal [facility] Comment on above: Order Comment: Speci men Type: BLOOD SPECIMENOrdering Facility: [facility] Address: [address] [place] [address] Performed By: #### 5 7021-8 ####[facility] LABCLIA [id number] [place] [address] [place] MCH (RBC) [Entitic mass] 31.1 pg Normal 26.0-34.0 [facility] Comment on above: Order Comment: Speci men Type: BLOOD SPECIMENOrdering Facility: [facility] Address: [address] [place] [address] Performed By: #### 5 7021-8 ####[facility] LABCLIA [id number] [place] [address] [place] MCHC (RBC) [Mass/Vol] 32.9 g/dL Normal 30.5-36.0 [facility] Comment on above: Order Comment: Speci men Type: BLOOD SPECIMENOrdering Facility: [facility] Address: [address] [place] [address] Performed By: #### 5 7021-8 ####[facility] LABIA [id number] [place] [address] [place] MCV (RBC) [Entitic vol] 94.5 fL Normal 80.0-100.0 [facility] Comment on above: Order Comment: Speci men Type: BLOOD SPECIMENOrdering Facility: [facility] Address: [address] [place] [address] Performed By: #### 5 7021-8 ####[facility] LABIA [id number] [place] [address] [place] Monocytes (Bld) [#/Vol] 1.26 10*3/uL High <0.87 [facility] Comment on above: Order Comment: Speci men Type: BLOOD SPECIMENOrdering Facility: [facility] Address: [address] [place] [address] Performed By: #### 5 7021-8 ####[facility] LABCLIA [id number] [place] [address] [place] Monocytes/100 WBC (Bld) 12.5 % Normal [facility] Comment on above: Order Comment: Speci men Type: BLOOD SPECIMENOrdering Facility: [facility] Address: [address] [place] [address] Performed By: #### 5 7021-8 ####[facility] LABCLIA [id number] [place] [address] [place] Neutrophils (Bld) [#/Vol] 5.60 10*3/uL Normal 1.45-7.50 [facility] Comment on above: Order Comment: Speci men Type: BLOOD SPECIMENOrdering Facility: [facility] Address: [address] [place] [address] Performed By: #### 5 7021-8 ####[facility] LABCLIA [id number] [facility] [place] [address] [place] Neutrophils/100 WBC (Bld) 55.5 % Normal [facility] Comment on above: Order Comment: Speci men Type: BLOOD SPECIMENOrdering Facility: [facility] Address: [address] [place] [address] Performed By: #### 5 7021-8 ####[facility] LABCLIA [id number] [place] [address] [place] Nucleated RBC (Bld) [#/Vol] 10*3/uL Normal <0.01 [facility] Comment on above: Order Comment: Speci men Type: BLOOD SPECIMENOrdering Facility: [facility] Address: [address] [place] [address] Performed By: #### 5 7021-8 ####[facility] LABCLIA [id number] [facility] [place] [address] [place] Nucleated RBC/100 WBC (Bld) [Ratio] 0.0 /100 WBC Normal [facility] Comment on above: Order Comment: Speci men Type: BLOOD SPECIMENOrdering Facility: [facility] Address: [address] [place] [address] Performed By: #### 5 7021-8 ####[facility] LABCLIA [id number] [place] [address] [place] Platelet mean volume (Bld) [Entitic vol] 10.2 fL Normal 9.0-12.7 [facility] Comment on above: Order Comment: Speci men Type: BLOOD SPECIMENOrdering Facility: [facility] Address: [address] [place] [address] Performed By: #### 5 7021-8 ####[facility] LABIA [id number] [place] [id number] [place] Platelets (Bld) [#/Vol] 290 10*3/uL Normal 150-400 [facility] Comment on above: Order Comment: Speci men Type: BLOOD SPECIMENOrdering Facility: [facility] Address: [address] [place] [address] Performed By: #### 5 7021-8 ####[facility] LABIA [id number] [place] [address] [place] RBC (Bld) [#/Vol] 3.99 10*6/uL Low 4.20-6.[address] [facility] Comment on above: Order Comment: Speci men Type: BLOOD SPECIMENOrdering Facility: [facility] Address: [address] [place] [address] Performed By: #### 5 7021-8 ####[facility] LABIA [id number] [place] [address] [place] WBC (Bld) [#/Vol] 10.08 10*3/uL Normal 3.70-11.00 [facility] Comment on above: Order Comment: Speci men Type: BLOOD SPECIMENOrdering Facility: [facility] Address: [address] [place] [address] Performed By: #### 5 7021-8 ####[facility] LABIA [id number] [place] [id number] [place] Comprehensive metabolic 2000 panelon 06-07-2024 Albumin [Mass/Vol] 3.9 g/dL Normal 3.9-4.9 [facility] Comment on above: Order Comment: Speci men Type: BLOOD SPECIMENOrdering Facility: [facility] Address: [address] [place] [address] Performed By: #### 1 9123-9, 2777-1, 28467-3, HSTNT ####[facility] LABIA [id number] [address] [address] [place] ALP [Catalytic activity/Vol] 76 U/L Normal 38-113 [facility] Comment on above: Order Comment: Speci men Type: BLOOD SPECIMENOrdering Facility: [facility] Address: [address] [place] [address] Performed By: #### 1 9123-9, 2777-1, 49215-5, HSTNT ####[facility] LABIA [id number] [place] [address] [place] ALT [Catalytic activity/Vol] 12 U/L Normal 10-54 [facility] Comment on above: Order Comment: Speci men Type: BLOOD SPECIMENOrdering Facility: [facility] Address: [address] [place] [address] Performed By: #### 1 9123-9, 2777-1, 92422-1, HSTNT ####[facility] [id number] [place] [id number] [place] Anion gap [Moles/Vol] 16 mmol/L High 8-15 [facility] Comment on above: Order Comment: Speci men Type: BLOOD SPECIMENOrdering Facility: [facility] Address: [address] [place] [address] Performed By: #### 1 9123-9, 2777-1, 96236-6, HSTNT ####[facility] LABIA [id number] [place] [id number] [place] AST [Catalytic activity/Vol] 24 U/L Normal 14-40 [facility] Comment on above: Order Comment: Speci men Type: BLOOD SPECIMENOrdering Facility: [facility] Address: [address] [place] [address] Performed By: #### 1 9123-9, 2777-1, 63510-0, HSTNT ####[facility] LABCLIA [id number] [address] [address] [place] Bilirubin [Mass/Vol] 1.0 mg/dL Normal 0.2-1.3 [facility] Comment on above: Order Comment: Speci men Type: BLOOD SPECIMENOrdering Facility: [facility] Address: [address] [place] [address] Performed By: #### 1 9123-9, 2777-, 16575-9, HSTNT ####[facility] LABCLIA [id number] [place] [id number] [place] Calcium [Mass/Vol] 9.6 mg/dL Normal 8.5-10.2 [facility] Comment on above: Order Comment: Speci men Type: BLOOD SPECIMENOrdering Facility: [facility] Address: [address] [place] [address] Performed By: #### 1 9123-9, 277-, 40133-6, HSTNT ####[facility] LABCLIA [id number] [place] [id number] [place] Chloride [Moles/Vol] 99 mmol/L Normal 98-107 [facility] Comment on above: Order Comment: Speci men Type: BLOOD SPECIMENOrdering Facility: [facility] Address: [address] [place], [place] [address] Performed By: #### 1 9123-9, 277-, 76543-0, HSTNT ####[facility] LABCLIA [id number] [place] [id number] [place] CO2 [Moles/Vol] 24 mmol/L Normal 22-30 [facility] Comment on above: Order Comment: Speci men Type: BLOOD SPECIMENOrdering Facility: [facility] Address: [address] [place] [address] Performed By: #### 1 9123-9, 2777-1, 03965-4, HSTNT ####[facility] LABIA [id number] [address] [address] [place] Creatinine [Mass/Vol] 1.04 mg/dL Normal 0.73-1.22 [facility] Comment on above: Order Comment: Speci men Type: BLOOD SPECIMENOrdering Facility: [facility] Address: [address] [place] [address] Performed By: #### 1 9123-9, 277-, 47229-9, HSTNT ####[facility] [id number] [place] [address] [place] Creatinine and Glomerular filtration rate.predicted panel (S/P/Bld) 79 mL/min/1.73m??? Normal >=60 [facility] Comment on above: Order Comment: [facility] Type: BLOOD SPECIMENOrdering Facility: [facility] Address: [address] [place] [address] Result Comment: Yesica mated Glomerular Filtration Rate [...] actual GFR. Performed By: #### 1 9123-9, 27709-07, 04504-9, HSTNT ####[facility] LABIA [id number] [address] [address] [place] Glucose [Mass/Vol] 110 mg/dL High 74-99 [facility] Comment on above: Order Comment: Speci men Type: BLOOD SPECIMENOrdering Facility: [facility] Address: [address] [place] [address] Result Comment: The [place] [employer] (ADA) provides guidance for cutoff [...] Standards of Medical Care in Diabetes 2016, [place] [employer]. Diabetes Care. 2016.39(Suppl 1). Performed By: #### 1 9123-9, 2777-, 87515-1, HSTNT ####[facility] LABIA [id number] [place] [id number] [place] Potassium [Moles/Vol] 3.9 mmol/L Normal 3.7-5.1 [facility] Comment on above: Order Comment: Speci men Type: BLOOD SPECIMENOrdering Facility: [facility] Address: [address] [place] [address] Performed By: #### 1 9123-9, 2777, 02772-0, HSTNT ####[facility] LABIA [id number] [place] [id number] [place] Protein [Mass/Vol] 6.3 g/dL Normal 6.3-8.0 [facility] Comment on above: Order Comment: Speci men Type: BLOOD SPECIMENOrdering Facility: [facility] Address: [address] [place], [place] [address] Performed By: #### 1 9123-9, 27709-07, 19971-8, HSTNT ####[facility] LABIA [id number] [place] [id number] [place] Sodium [Moles/Vol] 139 mmol/L Normal 136-144 [facility] Comment on above: Order Comment: Speci men Type: BLOOD SPECIMENOrdering Facility: [facility] Address: [address] [place], [place] [address] Performed By: #### 1 9123-9, 2777-1, 58786-8, HSTNT ####[facility] LABCLIA [id number] [address] [address] [place] Urea nitrogen [Mass/Vol] 17 mg/dL Normal 9-24 [facility] Comment on above: Order Comment: Speci men Type: BLOOD SPECIMENOrdering Facility: [facility] Address: [address] [place] [address] Performed By: #### 1 9123-9, 2777-1, 12992-7, HSTNT ####[facility] LABCLIA [id number] [address] [address] [place] ECG COMPLETEon 06-07-2024 ECG COMPLETE Normal [facility] HIGH SENSITIVITY TROPONIN To n 06-07-2024 Troponin T.cardiac High sensitivity method [Mass/Vol] 31 ng/L High <12 [facility] Comment on above: Order Comment: Speci men Type: BLOOD SPECIMENOrdering Facility: [facility] Address: [address] [place] [address] Performed By: #### 1 9123-9, 277-1, 85904-9, HSTNT ####[facility] LABCLIA [id number] [address] [address] [place] MEDICAL EMERon 06-07-2024 MEDICAL KAITLYN Normal [facility] Magnesium SerPl-mCncon 06-07 Magnesium [Mass/Vol] 1.9 mg/dL Normal 1.7-2.3 [facility] Comment on above: Order Comment: Speci men Type: BLOOD SPECIMENOrdering Facility: [facility] Address: [address] [place], [place] [address] Performed By: #### 1 9123-9, 2777-1, 42747-2, HSTNT ####[facility] LABCLIA [id number] [address] [address] [place] NURSING PROGon 06-07-2024 NURSING PROG Normal [facility] NURSING PROG Normal [facility] Phosphate SerPl-mCncon 06-07 Phosphate [Mass/Vol] 3.3 mg/dL Normal 2.7-4.8 [facility] Comment on above: Order Comment: Speci men Type: BLOOD SPECIMENOrdering Facility: [facility] Address: [address] [place] [address] Performed By: #### 1 9123-9, 2777-1, 92702-6, HSTNT ####[facility] LABCLIA [id number] [place] [address] [place] ARTERIAL BLOOD GASESon 06-06 Base excess Calc (Bld) [Moles/Vol] 4 mmol/L High 0-2 [facility] Comment on above: Order Comment: Speci men Type: ARTERIAL BLOOD SPECIMENOrdering Facility: [facility] Address: [address] [place] [address] Performed By: #### A LLBG ####[facility] LABCLIA [id number] [place] [address] [place] Body temperature 98.6 [degF] Normal [facility] Comment on above: Order Comment: Speci men Type: ARTERIAL BLOOD SPECIMENOrdering Facility: [facility] Address: [address] [place] [address] Performed By: #### A LLBG ####[facility] LABCLIA [id number] [place] [address] [place] Calcium.ionized (Bld) [Mass/Vol] 1.23 mmol/L Normal 1.08-1.30 [facility] Comment on above: Order Comment: Speci men Type: ARTERIAL BLOOD SPECIMENOrdering Facility: [facility] Address: [address] [place] [address] Performed By: #### A LLBG ####[facility] LABCLIA [id number] [place] [address] [place] Calcium.ionized adjusted to pH 7.4 (BldA) [Moles/Vol] 1.26 mmol/L Normal 1.08-1.30 [facility] Comment on above: Order Comment: Speci men Type: ARTERIAL BLOOD SPECIMENOrdering Facility: [facility] Address: [address] [place] [address] Performed By: #### A LLBG ####[facility] LABCLIA [id number] [place] [address] [place] Carboxyhemoglobin (BldA) [Mass fraction] 1.2 % Normal 0.0-2.0 [facility] Comment on above: Order Comment: Speci men Type: ARTERIAL BLOOD SPECIMENOrdering Facility: [facility] Address: [address] [place] [address] Result Comment: Carb oxyhemoglobin Reference Range for Smokers: 2.0-8.0% Performed By: #### A LLBG ####[facility] LABCLIA [id number] [place] [address] [place] CO2 (Bld) [Partial pressure] 39 mm Hg Normal 36-46 [facility] Comment on above: Order Comment: Speci men Type: ARTERIAL BLOOD SPECIMENOrdering Facility: [facility] Address: [address] [place] [address] Performed By: #### A LLBG ####[facility] LABCLIA [id number] [place] [address] [place] Glucose [Mass/Vol] 116 mg/dL High 60-105 [facility] Comment on above: Order Comment: Speci men Type: ARTERIAL BLOOD SPECIMENOrdering Facility: [facility] Address: [address] [place] [address] Performed By: #### A LLBG ####[facility] LABCLIA [id number] [place] [address] [place] HCO3 (Bld) [Moles/Vol] 27 mmol/L High 22-26 [facility] Comment on above: Order Comment: Speci men Type: ARTERIAL BLOOD SPECIMENOrdering Facility: [facility] Address: [address] [place] [address] Performed By: #### A LLBG ####[facility] LABCLIA [id number] [place] [address] [place] Hematocrit (Bld) [Volume fraction] 39.5 % Normal 39.0-51.0 [facility] Comment on above: Order Comment: Speci men Type: ARTERIAL BLOOD SPECIMENOrdering Facility: [facility] Address: [address] [place] [address] Performed By: #### A LLBG ####[facility] LABCLIA [id number] [place] [address] [place] Hemoglobin (Bld) [Mass/Vol] 12.9 g/dL Low 13.0-17.0 [facility] Comment on above: Order Comment: Speci men Type: ARTERIAL BLOOD SPECIMENOrdering Facility: [facility] Address: [address] [place] [address] Performed By: #### A LLBG ####[facility] LABCLIA [id number] [place] [address] [place] Lactate [Moles/Vol] 0.6 mmol/L Normal 0.5-2.[address] [facility] Comment on above: Order Comment: Speci men Type: ARTERIAL BLOOD SPECIMENOrdering Facility: [facility] Address: [address] [place] [address] Performed By: #### A LLBG ####[facility] LABCLIA [id number] [place] [id number] [place] Methemoglobin (Bld) [Mass fraction] 0.5 % Normal 0.0-1.5 [facility] Comment on above: Order Comment: Speci men Type: ARTERIAL BLOOD SPECIMENOrdering Facility: [facility] Address: [address] [place] [address] Performed By: #### A LLBG ####[facility] LABCLIA [id number] [address] [address] [place] O2 THERAPY RA=Room Air Normal [facility] Comment on above: Order Comment: Speci men Type: ARTERIAL BLOOD SPECIMENOrdering Facility: [facility] Address: [address] [place], [place] [address] Performed By: #### A LLBG ####[facility] LABCLIA [id number] [address] [address] [place] Oxygen (Bld) [Partial pressure] 74 mm Hg Low 85-95 [facility] Comment on above: Order Comment: Speci men Type: ARTERIAL BLOOD SPECIMENOrdering Facility: [facility] Address: [address] [place] [address] Performed By: #### A LLBG ####[facility] LABCLIA [id number] [place] [id number] [place] Oxyhemoglobin (BldA) [Mass fraction] 94 % Low 95-98 [facility] Comment on above: Order Comment: Speci men Type: ARTERIAL BLOOD SPECIMENOrdering Facility: [facility] Address: [address] [place] [address] Performed By: #### A LLBG ####[facility] LABCLIA [id number] [address] [address] [place] pH (Bld) 7.46 [pH] High 7.35-7.45 [facility] Comment on above: Order Comment: Speci men Type: ARTERIAL BLOOD SPECIMENOrdering Facility: [facility] Address: [address] [place], [place] [address] Performed By: #### A LLBG ####[facility] LABCLIA [id number] [address] [address] [place] PO2 / FIO2 RATIO 352 mmHg Normal >300 [facility] Comment on above: Order Comment: Speci men Type: ARTERIAL BLOOD SPECIMENOrdering Facility: [facility] Address: [address] [place] [address] Performed By: #### A LLBG ####[facility] LABCLIA [id number] [place] [id number] [place] Potassium [Moles/Vol] 3.8 mmol/L Normal 3.5-5.0 [facility] Comment on above: Order Comment: Speci men Type: ARTERIAL BLOOD SPECIMENOrdering Facility: [facility] Address: [address] [place] [address] Performed By: #### A LLBG ####[facility] LABCLIA [id number] [place] [id number] [place] Sodium [Moles/Vol] 137 mmol/L Normal 136-144 [facility] Comment on above: Order Comment: Speci men Type: ARTERIAL BLOOD SPECIMENOrdering Facility: [facility] Address: [address] [place] [address] Performed By: #### A LLBG ####[facility] LABCLIA [id number] [place] [id number] [place] Basic metabolic 2000 panelon 06-06-2024 Anion gap [Moles/Vol] 11 mmol/L Normal 8-15 [facility] Comment on above: Order Comment: Speci men Type: BLOOD SPECIMENOrdering Facility: [facility] Address: [address] [place] [address] Performed By: #### 2 4321-2, HSTNT ####[facility] LABCLIA [id number] [place] [id number] [place] Calcium [Mass/Vol] 9.8 mg/dL Normal 8.5-10.2 [facility] Comment on above: Order Comment: Speci men Type: BLOOD SPECIMENOrdering Facility: [facility] Address: [address] [place], [place] [address] Performed By: #### 2 4321-2, HSTNT ####[facility] LABCLIA [id number] [place] [id number] [place] Chloride [Moles/Vol] 102 mmol/L Normal 98-107 [facility] Comment on above: Order Comment: Speci men Type: BLOOD SPECIMENOrdering Facility: [facility] Address: [address] [place] [address] Performed By: #### 2 4321-2, HSTNT ####[facility] LABCLIA [id number] [place] [address] [place] CO2 [Moles/Vol] 27 mmol/L Normal 22-30 [facility] Comment on above: Order Comment: Speci men Type: BLOOD SPECIMENOrdering Facility: [facility] Address: [address] [place] [address] Performed By: #### 2 4321-2, HSTNT ####[facility] LABCLIA [id number] [address] [place] Creatinine [Mass/Vol] 1.00 mg/dL Normal 0.73-1.22 [facility] Comment on above: Order Comment: Speci men Type: BLOOD SPECIMENOrdering Facility: [facility] Address: [address] [place] [address] Performed By: #### 2 4321-2, HSTNT ####[facility] LABIA [id number] [address] OF [facility] Creatinine and Glomerular filtration rate.predicted panel (S/P/Bld) 82 mL/min/1.73m??? Normal >=60 [facility] Comment on above: Order Comment: Speci men Type: BLOOD SPECIMENOrdering Facility: [facility] Address: [address] [place] [address] Result Comment: Yesica mated Glomerular Filtration Rate [...] GFR. Performed By: #### 2 4321-2, HSTNT ####[facility] LABCLIA [id number] [place] [id number] [place] Glucose [Mass/Vol] 94 mg/dL Normal 74-99 [facility] Comment on above: Order Comment: Roberto Carlos men Type: BLOOD SPECIMENOrdering Facility: [facility] Address: [address] [place] [address] Result Comment: The [place] [employer] (ADA) provides guidance for cutoff [...] Standards of Medical Care in Diabetes 2016, [place] [employer]. Diabetes Care. 2016.39(Suppl 1). Performed By: #### 2 4321-2, HSTNT ####[facility] LABCLIA [id number] [place] [id number] [place] Potassium [Moles/Vol] 4.3 mmol/L Normal 3.7-5.1 [facility] Comment on above: Order Comment: Roberto Carlos men Type: BLOOD SPECIMENOrdering Facility: [facility] Address: [address] [place] [id number] Performed By: #### 2 4321-2, HSTNT ####[facility] LABIA [id number] [place] [id number] [place] Sodium [Moles/Vol] 140 mmol/L Normal 136-144 [facility] Comment on above: Order Comment: Roberto Carlos men Type: BLOOD SPECIMENOrdering Facility: [facility] Address: [address] [place] [address] Performed By: #### 2 4321-2, HSTNT ####[facility] LABCLIA [id number] [place] [id number] [place] Urea nitrogen [Mass/Vol] 16 mg/dL Normal 9-24 [facility] Comment on above: Order Comment: Speci men Type: BLOOD SPECIMENOrdering Facility: [facility] Address: [address] [place] [address] Performed By: #### 2 4321-2, HSTNT ####[facility] LABCLIA [id number] [place] [address] [place] CBC panel Auto (Bld)on 06-06 Erythrocyte distribution width (RBC) [Ratio] 13.0 % Normal 11.5-15.0 [facility] Comment on above: Order Comment: Speci men Type: BLOOD SPECIMENOrdering Facility: [facility] Address: [address] [place] [address] Performed By: #### 5 8410-2 ####[facility] LABCLIA [id number] [place] [address] [place] Hematocrit (Bld) [Volume fraction] 39.7 % Normal 39.0-51.0 [facility] Comment on above: Order Comment: Speci men Type: BLOOD SPECIMENOrdering Facility: [facility] Address: [address] [place] [address] Performed By: #### 5 8410-2 ####[facility] LABCLIA [id number] [place] [id number] [place] Hemoglobin (Bld) [Mass/Vol] 13.0 g/dL Normal 13.0-17.0 [facility] Comment on above: Order Comment: Speci men Type: BLOOD SPECIMENOrdering Facility: [facility] Address: [address] [place] [address] Performed By: #### 5 8410-2 ####[facility] LABIA [id number] [place] [address] [place] MCH (RBC) [Entitic mass] 31.5 pg Normal 26.0-34.0 [facility] Comment on above: Order Comment: Speci men Type: BLOOD SPECIMENOrdering Facility: [facility] Address: [address] [place] [address] Performed By: #### 5 8410-2 ####[facility] [id number] [place] [address] [place] MCHC (RBC) [Mass/Vol] 32.7 g/dL Normal 30.5-36.0 [facility] Comment on above: Order Comment: Speci men Type: BLOOD SPECIMENOrdering Facility: [facility] Address: [address] [place] [address] Performed By: #### 5 8410-2 ####[facility] [id number] [place] [address] [place] MCV (RBC) [Entitic vol] 96.1 fL Normal 80.0-100.0 [facility] Comment on above: Order Comment: Speci men Type: BLOOD SPECIMENOrdering Facility: [facility] Address: [address] [place] [address] Performed By: #### 5 8410-2 ####[facility] [id number] [place] [address] [place] Nucleated RBC (Bld) [#/Vol] 10*3/uL Normal <0.01 [facility] Comment on above: Order Comment: Speci men Type: BLOOD SPECIMENOrdering Facility: [facility] Address: [address] [place] [address] Performed By: #### 5 8410-2 ####[facility] LABS[facility] [id number] [place] [address] [place] Platelet mean volume (Bld) [Entitic vol] 10.4 fL Normal 9.0-12.7 [facility] Comment on above: Order Comment: Speci men Type: BLOOD SPECIMENOrdering Facility: [facility] Address: [address] [place] [address] Performed By: #### 5 8410-2 ####[facility] LABCLIA [id number] [place] [address] [place] Platelets (Bld) [#/Vol] 320 10*3/uL Normal 150-400 [facility] Comment on above: Order Comment: Speci men Type: BLOOD SPECIMENOrdering Facility: [facility] Address: [address] [place] [address] Performed By: #### 5 8410-2 ####[facility] LABCLIA [id number] [place] [address] [place] RBC (Bld) [#/Vol] 4.13 10*6/uL Low 4.20-6.[address] [facility] Comment on above: Order Comment: Speci men Type: BLOOD SPECIMENOrdering Facility: [facility] Address: [address] [place] [address] Performed By: #### 5 8410-2 ####[facility] LABIA [id number] [place] [address] [place] WBC (Bld) [#/Vol] 9.89 10*3/uL Normal 3.70-11.[address] [facility] Comment on above: Order Comment: Speci men Type: BLOOD SPECIMENOrdering Facility: [facility] Address: [address] [place] [address] Performed By: #### 5 8410-2 ####[facility] LABIA [id number] [place] [id number] [place] HIGH SENSITIVITY TROPONIN To n 06-06-2024 Troponin T.cardiac High sensitivity method [Mass/Vol] 25 ng/L High <12 [facility] Comment on above: Order Comment: Speci men Type: BLOOD SPECIMENOrdering Facility: [facility] Address: [address] [place] [id number] Performed By: #### 2 4321-2, HSTNT ####[facility] LABCLIA [id number] [address] [address] [place] NURSING PROGon 06-06-2024 NURSING PROG Normal [facility] NURSING PROG Normal [facility] XR CERVICAL 2V AP/LATon 05-09 XR CERVICAL 2V AP/LAT Normal [facility] APAP SerPl-mCncon 06-04-2024 Acetaminophen [Mass/Vol] ug/mL Low - [facility] Comment on above: Order Comment: Roberto Carlos men Type: BLOOD SPECIMENOrdering Facility: [facility] Address: [address] [place] [address] Result Comment: Toxi c > 150 ug/mL 4 hours post ingestionThe Anahi Terrell nomogram can be used to estimate the probability of hepatotoxicity via the relationship of plasma acetaminophen concentration to the post ingestion interval. (Greg. Pediatrics. 1975. 55:871 to 876 and Anahi et al. Arch Senior Report Developer Med. 1981. 141:380 to 385).Reference ranges and high/low indicator flags are provided as general guidelines only. The treating physician must determine appropriate target levels/dosing based on the specific clinical situation. Performed By: #### 3 298-7 ####[facility] LABCLIA [id number] [place] [id number] [place] Basic metabolic 2000 panelon 06-04-2024 Anion gap [Moles/Vol] 9 mmol/L Normal 8-15 [facility] Comment on above: Order Comment: Roberto Carlos lion Type: BLOOD SPECIMENOrdering Facility: [facility] Address: [address] [place] [address] Performed By: #### 2 4321-2 ####[facility] LABCLIA [id number] [facility] [place] [id number] [place] Calcium [Mass/Vol] 9.4 mg/dL Normal 8.5-10.2 [facility] Comment on above: Order Comment: Speci men Type: BLOOD SPECIMENOrdering Facility: [facility] Address: [address] [place] [address] Performed By: #### 2 4321-2 ####[facility] LABCLIA [id number] [facility] [address] [address] [place] Chloride [Moles/Vol] 106 mmol/L Normal 98-107 [facility] Comment on above: Order Comment: Speci men Type: BLOOD SPECIMENOrdering Facility: [facility] Address: [address] [place] [address] Performed By: #### 2 4321-2 ####[facility] LABCLIA [id number] [facility] [place] [address] [place] CO2 [Moles/Vol] 27 mmol/L Normal 22-30 [facility] Comment on above: Order Comment: Speci men Type: BLOOD SPECIMENOrdering Facility: [facility] Address: [address] [place] [address] Performed By: #### 2 4321-2 ####[facility] LABCLIA [id number] [place] [address] [place] Creatinine [Mass/Vol] 1.07 mg/dL Normal 0.73-1.22 [facility] Comment on above: Order Comment: Speci men Type: BLOOD SPECIMENOrdering Facility: [facility] Address: [address] [place] [address] Performed By: #### 2 4321-2 ####[facility] LABCLIA [id number] [place] [id number] [place] Creatinine and Glomerular filtration rate.predicted panel (S/P/Bld) 76 mL/min/1.73m??? Normal >=60 [facility] Comment on above: Order Comment: Speci men Type: BLOOD SPECIMENOrdering Facility: [facility] Address: [address] [place], [place] [address] Result Comment: Yesica mated Glomerular Filtration Rate [...] actual GFR. Performed By: #### 2 4321-2 ####[facility] LABIA [id number] [place] [address] [place] Glucose [Mass/Vol] 98 mg/dL Normal 74-99 [facility] Comment on above: Order Comment: Specmartha lion Type: BLOOD SPECIMENOrdering Facility: [facility] Address: [address] [place] [address] Result Comment: The [place] [employer] (ADA) provides guidance for cutoff [...] Standards of Medical Care in Diabetes 2016, [place] [employer]. Diabetes Care. 2016.39(Suppl 1). Performed By: #### 2 4321-2 ####[facility] LABIA [id number] [place] [address] [place] Potassium [Moles/Vol] 4.3 mmol/L Normal 3.7-5.1 [facility] Comment on above: Order Comment: Roberto Carlos lion Type: BLOOD SPECIMENOrdering Facility: [facility] Address: [address] [place] [address] Performed By: #### 2 4321-2 ####[facility] LABIA [id number] [place] [address] [place] Sodium [Moles/Vol] 142 mmol/L Normal 136-144 [facility] Comment on above: Order Comment: Speci men Type: BLOOD SPECIMENOrdering Facility: [facility] Address: [address] [place] [address] Performed By: #### 2 4321-2 ####[facility] LABCLIA [id number] [place] [address] [place] Urea nitrogen [Mass/Vol] 12 mg/dL Normal 9-24 [facility] Comment on above: Order Comment: Speci men Type: BLOOD SPECIMENOrdering Facility: [facility] Address: [address] [place] [address] Performed By: #### 2 4321-2 ####[facility] LABCLIA [id number] [place] [address] [place] CBC panel Auto (Bld)on 06-04 Erythrocyte distribution width (RBC) [Ratio] 13.5 % Normal 11.5-15.0 [facility] Comment on above: Order Comment: Speci men Type: BLOOD SPECIMENOrdering Facility: [facility] Address: [address] [place] [address] Performed By: #### 5 8410-2 ####[facility] LABCLIA [id number] [place] [address] [place] Hematocrit (Bld) [Volume fraction] 38.8 % Low 39.0-51.0 [facility] Comment on above: Order Comment: Speci men Type: BLOOD SPECIMENOrdering Facility: [facility] Address: [address] [place] [address] Performed By: #### 5 8410-2 ####[facility] LABCLIA [id number] [place] [id number] [place] Hemoglobin (Bld) [Mass/Vol] 12.2 g/dL Low 13.0-17.0 [facility] Comment on above: Order Comment: Speci men Type: BLOOD SPECIMENOrdering Facility: [facility] Address: [address] [place] [address] Performed By: #### 5 8410-2 ####[facility] LABIA [id number] [place] [address] [place] MCH (RBC) [Entitic mass] 31.1 pg Normal 26.0-34.0 [facility] Comment on above: Order Comment: Speci men Type: BLOOD SPECIMENOrdering Facility: [facility] Address: [address] [place] [address] Performed By: #### 5 8410-2 ####[facility] LABIA [id number] [place] [address] [place] MCHC (RBC) [Mass/Vol] 31.4 g/dL Normal 30.5-36.0 [facility] Comment on above: Order Comment: Speci men Type: BLOOD SPECIMENOrdering Facility: [facility] Address: [address] [place] [address] Performed By: #### 5 8410-2 ####[facility] LABIA [id number] [place] [address] [place] MCV (RBC) [Entitic vol] 99.0 fL Normal 80.0-100.0 [facility] Comment on above: Order Comment: Speci men Type: BLOOD SPECIMENOrdering Facility: [facility] Address: [address] [place] [address] Performed By: #### 5 8410-2 ####[facility] LABIA [id number] [place] [address] [place] Nucleated RBC (Bld) [#/Vol] 10*3/uL Normal <0.01 [facility] Comment on above: Order Comment: Speci men Type: BLOOD SPECIMENOrdering Facility: [facility] Address: [address] [place] [address] Performed By: #### 5 8410-2 ####[facility] LABCLIA [id number] [address] [place] [address] [place] Platelet mean volume (Bld) [Entitic vol] 10.2 fL Normal 9.0-12.7 [facility] Comment on above: Order Comment: Speci men Type: BLOOD SPECIMENOrdering Facility: [facility] Address: [address] [place] [address] Performed By: #### 5 8410-2 ####[facility] LABCLIA [id number] [address] [place] [address] [place] Platelets (Bld) [#/Vol] 239 10*3/uL Normal 150-400 [facility] Comment on above: Order Comment: Speci men Type: BLOOD SPECIMENOrdering Facility: [facility] Address: [address] [place] [address] Performed By: #### 5 8410-2 ####[facility] LABIA [id number] [place] [address] [place] RBC (Bld) [#/Vol] 3.92 10*6/uL Low 4.20-6.[address] [facility] Comment on above: Order Comment: Speci men Type: BLOOD SPECIMENOrdering Facility: [facility] Address: [address] [place] [address] Performed By: #### 5 8410-2 ####[facility] LABCLIA [id number] [address] [address] [place] WBC (Bld) [#/Vol] 10.60 10*3/uL Normal 3.70-11.00 [facility] Comment on above: Order Comment: Speci men Type: BLOOD SPECIMENOrdering Facility: [facility] Address: [address] [place] [address] Performed By: #### 5 8410-2 ####[facility] LABCLIA [id number] [address] [address] [place] Hepatic function 2000 panelo n 06-04-2024 Albumin [Mass/Vol] 4.0 g/dL Normal 3.9-4.9 [facility] Comment on above: Order Comment: Speci men Type: BLOOD SPECIMENOrdering Facility: [facility] Address: [address] [place] [address] Performed By: #### 2 4325-3 ####[facility] LABCLIA [id number] [place] [address] [place] ALP [Catalytic activity/Vol] 62 U/L Normal 38-113 [facility] Comment on above: Order Comment: Speci men Type: BLOOD SPECIMENOrdering Facility: [facility] Address: [address] [place] [address] Performed By: #### 2 4325-3 ####[facility] LABCLIA [id number] [place] [address] [place] ALT [Catalytic activity/Vol] 9 U/L Low 10-54 [facility] Comment on above: Order Comment: Speci men Type: BLOOD SPECIMENOrdering Facility: [facility] Address: [address] [place] [address] Performed By: #### 2 4325-3 ####[facility] LABCLIA [id number] [place] [id number] [place] AST [Catalytic activity/Vol] 26 U/L Normal 14-40 [facility] Comment on above: Order Comment: Speci men Type: BLOOD SPECIMENOrdering Facility: [facility] Address: [address] [place] [address] Performed By: #### 2 4325-3 ####[facility] LABCLIA [id number] [place] [id number] [place] Bilirubin [Mass/Vol] 0.5 mg/dL Normal 0.2-1.3 [facility] Comment on above: Order Comment: Speci men Type: BLOOD SPECIMENOrdering Facility: [facility] Address: [address] [place], [place] [address] Performed By: #### 2 4325-3 ####[facility] LABCLIA [id number] [place] [address] [place] Bilirubin.conjugated [Mass/Vol] 0.2 mg/dL Normal <0.3 [facility] Comment on above: Order Comment: Speci men Type: BLOOD SPECIMENOrdering Facility: [facility] Address: [address] [place] [address] Performed By: #### 2 4325-3 ####[facility] LABCLIA [id number] [place] [address] [place] Protein [Mass/Vol] 6.0 g/dL Low 6.3-8.0 [facility] Comment on above: Order Comment: Speci men Type: BLOOD SPECIMENOrdering Facility: [facility] Address: [address] [place] [address] Performed By: #### 2 4325-3 ####[facility] LABIA [id number] [place] [id number] [place] THERAPY NTon 06-04-2024 THERAPY NT Normal [facility] XR CERVICAL 2V AP/LATon 05-09 XR CERVICAL 2V AP/LAT Normal [facility] Basic metabolic 2000 panelon 06-03-2024 Anion gap [Moles/Vol] 14 mmol/L Normal 8-15 [facility] Comment on above: Order Comment: Speci men Type: BLOOD SPECIMENOrdering Facility: [facility] Address: [address] [place], [place] [address] Performed By: #### 2 4321-2 ####[facility] LABIA [id number] [place] [id number] [place] Calcium [Mass/Vol] 9.5 mg/dL Normal 8.5-10.2 [facility] Comment on above: Order Comment: Speci men Type: BLOOD SPECIMENOrdering Facility: [facility] Address: [address] [place] [address] Performed By: #### 2 4321-2 ####[facility] LABCLIA [id number] [place] [id number] [place] Chloride [Moles/Vol] 103 mmol/L Normal 98-107 [facility] Comment on above: Order Comment: Speci men Type: BLOOD SPECIMENOrdering Facility: [facility] Address: [address] [place] [address] Performed By: #### 2 4321-2 ####[facility] LABCLIA [id number] [place] [address] [place] CO2 [Moles/Vol] 23 mmol/L Normal 22-30 [facility] Comment on above: Order Comment: Speci men Type: BLOOD SPECIMENOrdering Facility: [facility] Address: [address] [place] [address] Performed By: #### 2 4321-2 ####[facility] LABCLIA [id number] [place] [id number] [place] Creatinine [Mass/Vol] 0.88 mg/dL Normal 0.73-1.22 [facility] Comment on above: Order Comment: Speci men Type: BLOOD SPECIMENOrdering Facility: [facility] Address: [address] [place] [address] Performed By: #### 2 4321-2 ####[facility] LABCLIA [id number] [place] [id number] [place] Creatinine and Glomerular filtration rate.predicted panel (S/P/Bld) 94 mL/min/1.73m??? Normal >=60 [facility] Comment on above: Order Comment: Speci men Type: BLOOD SPECIMENOrdering Facility: [facility] Address: [address] [place] [address] Result Comment: Yesica mated Glomerular Filtration Rate [...] actual GFR. Performed By: #### 2 4321-2 ####[facility] LABCLIA [id number] [address] [address] [place] Glucose [Mass/Vol] 135 mg/dL High 74-99 [facility] Comment on above: Order Comment: Specmartha lion Type: BLOOD SPECIMENOrdering Facility: [facility] Address: [address] [place] [address] Result Comment: The [place] [employer] (ADA) provides guidance for cutoff [...] Standards of Medical Care in Diabetes 2016, [place] [employer]. Diabetes Care. 2016.39(Suppl 1). Performed By: #### 2 4321-2 ####[facility] LABCLIA [id number] [address] [address] [place] Potassium [Moles/Vol] 4.2 mmol/L Normal 3.7-5.1 [facility] Comment on above: Order Comment: Roberto Carlos lion Type: BLOOD SPECIMENOrdering Facility: [facility] Address: [address] [place] [address] Performed By: #### 2 4321-2 ####[facility] LABCLIA [id number] [facility] [address] [address] [place] Sodium [Moles/Vol] 140 mmol/L Normal 136-144 [facility] Comment on above: Order Comment: Speci men Type: BLOOD SPECIMENOrdering Facility: [facility] Address: [address] [place] [address] Performed By: #### 2 4321-2 ####[facility] LABCLIA [id number] [address] [place] [address] [place] Urea nitrogen [Mass/Vol] 15 mg/dL Normal 9-24 [facility] Comment on above: Order Comment: Speci men Type: BLOOD SPECIMENOrdering Facility: [facility] Address: [address] [place] [address] Performed By: #### 2 4321-2 ####[facility] LABCLIA [id number] [address], [place] [address] [place] CASE MGT INIT ASSESon 2024 CASE MGT INIT ASSES Normal [facility] CBC panel Auto (Bld)on 06-03 Erythrocyte distribution width (RBC) [Ratio] 13.0 % Normal 11.5-15.0 [facility] Comment on above: Order Comment: Speci men Type: BLOOD SPECIMENOrdering Facility: [facility] Address: [address] [place] [address] Performed By: #### 5 8410-2 ####[facility] LABCLIA [id number] [place] [id number] [place] Hematocrit (Bld) [Volume fraction] 37.5 % Low 39.0-51.0 [facility] Comment on above: Order Comment: Speci men Type: BLOOD SPECIMENOrdering Facility: [facility] Address: [address] [place] [address] Performed By: #### 5 8410-2 ####[facility] LABCLIA [id number] [facility] [address] [place] [address] [place] Hemoglobin (Bld) [Mass/Vol] 12.4 g/dL Low 13.0-17.0 [facility] Comment on above: Order Comment: Speci men Type: BLOOD SPECIMENOrdering Facility: [facility] Address: [address] [place] [address] Performed By: #### 5 8410-2 ####[facility] LABIA [id number] [place] [address] [place] MCH (RBC) [Entitic mass] 31.2 pg Normal 26.0-34.0 [facility] Comment on above: Order Comment: Speci men Type: BLOOD SPECIMENOrdering Facility: [facility] Address: [address] [place] [address] Performed By: #### 5 8410-2 ####[facility] LABIA [id number] [place] [address] [place] MCHC (RBC) [Mass/Vol] 33.1 g/dL Normal 30.5-36.0 [facility] Comment on above: Order Comment: Speci men Type: BLOOD SPECIMENOrdering Facility: [facility] Address: [address] [place] [address] Performed By: #### 5 8410-2 ####[facility] [id number] [place] [address] [place] MCV (RBC) [Entitic vol] 94.5 fL Normal 80.0-100.0 [facility] Comment on above: Order Comment: Speci men Type: BLOOD SPECIMENOrdering Facility: [facility] Address: [address] [place] [address] Performed By: #### 5 8410-2 ####[facility] LABIA [id number] [place] [address] [place] Nucleated RBC (Bld) [#/Vol] 10*3/uL Normal <0.01 [facility] Comment on above: Order Comment: Speci men Type: BLOOD SPECIMENOrdering Facility: [facility] Address: [address] [place] [address] Performed By: #### 5 8410-2 ####[facility] LABCLIA [id number] [address] [place] [address] [place] Platelet mean volume (Bld) [Entitic vol] 10.4 fL Normal 9.0-12.7 [facility] Comment on above: Order Comment: Speci men Type: BLOOD SPECIMENOrdering Facility: [facility] Address: [address] [place] [address] Performed By: #### 5 8410-2 ####[facility] LABCLIA [id number] [address] [place] [address] [place] Platelets (Bld) [#/Vol] 266 10*3/uL Normal 150-400 [facility] Comment on above: Order Comment: Speci men Type: BLOOD SPECIMENOrdering Facility: [facility] Address: [address] [place] [address] Performed By: #### 5 8410-2 ####[facility] LABIA [id number] [address] [place] [address] [place] RBC (Bld) [#/Vol] 3.97 10*6/uL Low 4.20-6.[address] [facility] Comment on above: Order Comment: Speci men Type: BLOOD SPECIMENOrdering Facility: [facility] Address: [address] [place] [address] Performed By: #### 5 8410-2 ####[facility] LABIA [id number] [address] [address] [place] WBC (Bld) [#/Vol] 13.37 10*3/uL High 3.70-11.00 [facility] Comment on above: Order Comment: Speci men Type: BLOOD SPECIMENOrdering Facility: [facility] Address: [address] [place] [address] Performed By: #### 5 8410-2 ####[facility] LABCLIA [id number] [address] [address] [place] THERAPY NTon 06-03-2024 THERAPY NT Normal [facility] ANES POSTPROC EVALon 025 ANES POSTPROC EVAL Normal [facility] ANES PRE-OPon 06-02-2024 ANES PRE-OP Normal [facility] BRIEF OP NOTon 06-02-2024 BRIEF OP NOT Normal [facility] OPERATIVE NOon 06-02-2024 OPERATIVE NO Normal [facility] XR CERVICAL SPECIFY 1Von XR CERVICAL SPECIFY 1V Normal [facility] XR VERIFY LEVEL M-YCMKG-MJxb 06-02-2024 XR VERIFY LEVEL C-SPINE-NB Normal [facility] CT Cervical spine WO contras ton 05-16-2024 IMPRESSION: Developmental cervical canal stenosis with superimposed degenerative changes that are most prominent at C5-6 where there is severe cord compression. Multilevel bony foraminal narrowing as detailed above. Anatomic Variant: None. Assume 7 cervical vertebrae with counting from the craniocervical junction. 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 Anatomic Variants: None. Manager Gallery (topogram) images: No additional findings. Alignment: There [...] degenerative changes cause mild bilateral foraminal stenosis. [facility] Provider, [facility] - 05/16/2024 * * *Final Report* * * DATE OF EXAM: May 14 2024 9:37AM [facility] 0505 - CT CERVICAL SPINE WO IVCON [...] Counting reference: Craniocervical junction. Anatomic Variants: None. Manager Gallery (topogram) images: No additional findings. Alignment: There [...] vertebrae with counting from the craniocervical junction. Wireless Network Engineer: [employer] Transcribe Date/Time: May 16 2024 7:44A Dictated by : DOMENIC FORD MD This examination was interpreted and the report reviewed and electronically signed by: DOMENIC FORD MD on May 16 2024 7:54AM EST [facility] CT Cervical spine WO contras tOrdered By: Ccf Provider on 05-16-2024 [facility] [address] CERVICAL SPINE WO IVCONon 05-14-2024 CT CERVICAL SPINE WO IVCON * * *Final Report* * * DATE OF EXAM: May 14 2024 9:37AM [facility] 0505 - CT CERVICAL SPINE WO IVCON [...] Counting reference: Craniocervical junction. Anatomic Variants: None. Manager Gallery (topogram) images: No additional findings. Alignment: There [...] vertebrae with counting from the craniocervical junction. Wireless Network Engineer[facility] Transcribe Date/Time: May 16 2024 7:44A Dictated by : DOMENIC FORD MD This examination was interpreted and the report reviewed and electronically signed by: DOMENIC FORD MD on May 16 2024 7:54AM EST [id number] Normal [facility] CT Cervical spine WO contras ton 05-14-2024 Radiology Study observation (narrative) [facility] Basic metabolic 2000 panelon 05-12-2024 Anion gap [Moles/Vol] 11 mmol/L 8 - 15 mmol/L [facility] Calcium [Mass/Vol] 9.8 mg/dL 8.5 - 10. 2 mg/dL [facility] Chloride [Moles/Vol] 99 mmol/L 98 - 10 7 mmol/L [facility] CO2 [Moles/Vol] 28 mmol/L 22 - 30 mmol/L [facility] Creatinine [Mass/Vol] 0.91 mg/dL 0.73 - 1.22 mg/dL [facility] GFR/1.73 sq M.predicted among non-blacks MDRD (S/P/Bld) [Vol rate/Area] 92 mL/min/{1.73_m2} - PINF [facility] Comment on above: Estimated Glomerular Filtration Rate [...] 120 mg/dL High 74 - 99 mg/dL [facility] Comment on above: The [place] Di[employer] Association (ADA) provides guidance for [...] Standards of Medical Care in Diabetes 2016, [place] [employer]. Diabetes Care. 2016.39(Suppl 1). Interpretation and review of laboratory results Abnormal [facility] Potassium [Moles/Vol] 4.4 mmol/L 3.7 - 5.1 mmol/L [facility] Sodium [Moles/Vol] 138 mmol/L 136 - 144 mmol/L [facility] Urea nitrogen [Mass/Vol] 23 mg/dL 9 - 24 mg/dL [facility] Anion gap [Moles/Vol] 11 mmol/L Normal 8-15 [facility] Comment on above: Order Comment: Roberto Carlos lion Type: BLOOD SPECIMENOrdering Facility: [facility] Address: [address] [place] [address] Performed By: #### 5 0190-8, 69735-5, 2276-4 ####[facility] LABCLIA [id number] [place] [address] [place] Calcium [Mass/Vol] 9.8 mg/dL Normal 8.5-10.2 [facility] Comment on above: Order Comment: Roberto Carlos lion Type: BLOOD SPECIMENOrdering Facility: [facility] Address: [address] [place] [address] Performed By: #### 5 0190-8, 86549-0, 2275-4 ####[facility] LABIA [id number] [place] [address] [place] Chloride [Moles/Vol] 99 mmol/L Normal 98-107 [facility] Comment on above: Order Comment: Speci men Type: BLOOD SPECIMENOrdering Facility: [facility] Address: [address] [place] [address] Performed By: #### 5 0190-8, 08928-7, 2275- ####[facility] LABIA [id number] [place] [address] [place] CO2 [Moles/Vol] 28 mmol/L Normal 22-30 [facility] Comment on above: Order Comment: Speci men Type: BLOOD SPECIMENOrdering Facility: [facility] Address: [address] [place] [address] Performed By: #### 5 0190-8, 63056-8, 2275-06 ####[facility] LABIA [id number] [place] [address] [place] Creatinine [Mass/Vol] 0.91 mg/dL Normal 0.73-1.22 [facility] Comment on above: Order Comment: Speci men Type: BLOOD SPECIMENOrdering Facility: [facility] Address: [address] [place] [address] Performed By: #### 5 0190-8, 97436-6, 2275-06 ####[facility] LABIA [id number] [place] [address] [place] Creatinine and Glomerular filtration rate.predicted panel (S/P/Bld) 92 mL/min/1.73m??? Normal >=60 [facility] Comment on above: Order Comment: Speci men Type: BLOOD SPECIMENOrdering Facility: [facility] Address: [address] [place] [address] Result Comment: Yesica mated Glomerular Filtration Rate [...] actual GFR. Performed By: #### 5 0190-8, 99411-7, 2275- ####[facility] LABCLIA [id number] [place] [address] [place] Glucose [Mass/Vol] 120 mg/dL High 74-99 [facility] Comment on above: Order Comment: Speci men Type: BLOOD SPECIMENOrdering Facility: [facility] Address: [address] [place] [address] Result Comment: The [place] Diabetes Association (ADA) provides guidance for cutoff [...] Standards of Medical Care in Diabetes 2016, [place] [employer]. Diabetes Care. 2016.39(Suppl 1). Performed By: #### 5 0190-8, 86869-5, 2275-06 ####[facility] LABIA [id number] [place] [id number] [place] Potassium [Moles/Vol] 4.4 mmol/L Normal 3.7-5.1 [facility] Comment on above: Order Comment: Speci men Type: BLOOD SPECIMENOrdering Facility: [facility] Address: [address] [place] [address] Performed By: #### 5 0190-8, 16217-8, 2275- ####[facility] LABCLIA [id number] [address] [address] [place] Sodium [Moles/Vol] 138 mmol/L Normal 136-144 [facility] Comment on above: Order Comment: Speci men Type: BLOOD SPECIMENOrdering Facility: [facility] Address: [address] [place] [address] Performed By: #### 5 0190-8, 22141-6, 2275-06 ####[facility] LABCLIA [id number] [place] [address] [place] Urea nitrogen [Mass/Vol] 23 mg/dL Normal 9-24 [facility] Comment on above: Order Comment: Speci men Type: BLOOD SPECIMENOrdering Facility: [facility] Address: [address] [place] [address] Performed By: #### 5 0190-8, 09838-7, 2275-06 ####[facility] LABCLIA [id number] [place] [id number] [place] CBC W Auto Differential pane l (Bld)on 05-12-2024 Basophils (Bld) [#/Vol] 0.03 10*3/uL Normal <0.11 [facility] Comment on above: Order Comment: Speci men Type: BLOOD SPECIMENOrdering Facility: [facility] Address: [address] [place] [address] Performed By: #### 5 7021-8 ####[facility] LABCLIA [id number] [place] [id number] [place] Basophils/100 WBC (Bld) 0.3 % Normal [facility] Comment on above: Order Comment: Speci men Type: BLOOD SPECIMENOrdering Facility: [facility] Address: [address] [place] [address] Performed By: #### 5 7021-8 ####[facility] LABCLIA [id number] [address], [facility]95 [place] Differential cell count method Nom (Bld) Auto Normal [facility] Comment on above: Order Comment: Speci men Type: BLOOD SPECIMENOrdering Facility: [facility] Address: [address] [place] [address] Performed By: #### 5 7021-8 ####[facility] LABCLIA [id number] [address], [place] [address] [place] Eosinophils (Bld) [#/Vol] 10*3/uL Normal <0.46 [facility] Comment on above: Order Comment: Speci men Type: BLOOD SPECIMENOrdering Facility: [facility] Address: [address] [place] [address] Performed By: #### 5 7021-8 ####[facility] LABCLIA [id number] [address], [place] [address] [place] Eosinophils/100 WBC (Bld) 0.1 % Normal [facility] Comment on above: Order Comment: Speci men Type: BLOOD SPECIMENOrdering Facility: [facility] Address: [address] [place] [address] Performed By: #### 5 7021-8 ####[facility] LABCLIA [id number] [address], [place] [address] [place] Erythrocyte distribution width (RBC) [Ratio] 12.4 % Normal 11.5-15.0 [facility] Comment on above: Order Comment: Speci men Type: BLOOD SPECIMENOrdering Facility: [facility] Address: [address] [place] [address] Performed By: #### 5 7021-8 ####[facility] LABCLIA [id number] [address], [facility]95 [place] Hematocrit (Bld) [Volume fraction] 45.6 % Normal 39.0-51.0 [facility] Comment on above: Order Comment: Speci men Type: BLOOD SPECIMENOrdering Facility: [facility] Address: [address] [place] [address] Performed By: #### 5 7021-8 ####[facility] LABCLIA [id number] [place] [address] [place] Hemoglobin (Bld) [Mass/Vol] 14.9 g/dL Normal 13.0-17.0 [facility] Comment on above: Order Comment: Speci men Type: BLOOD SPECIMENOrdering Facility: [facility] Address: [address] [place] [address] Performed By: #### 5 7021-8 ####[facility] LABCLIA [id number] [place] [address] [place] Immature granulocytes (Bld) [#/Vol] 0.11 10*3/uL High <0.10 [facility] Comment on above: Order Comment: Speci men Type: BLOOD SPECIMENOrdering Facility: [facility] Address: [address] [place] [address] Performed By: #### 5 7021-8 ####[facility] LABCLIA [id number] [place] [address] [place] Immature granulocytes/100 WBC (Bld) 1.3 % Normal [facility] Comment on above: Order Comment: Speci men Type: BLOOD SPECIMENOrdering Facility: [facility] Address: [address] [place] [address] Performed By: #### 5 7021-8 ####[facility] LABCLIA [id number] [place] [address] [place] Lymphocytes (Bld) [#/Vol] 0.83 10*3/uL Low 1.00-4.00 [facility] Comment on above: Order Comment: Speci men Type: BLOOD SPECIMENOrdering Facility: [facility] Address: [address] [place] [address] Performed By: #### 5 7021-8 ####[facility] LABCLIA [id number] [place] [address] [place] Lymphocytes/100 WBC (Bld) 9.5 % Normal [facility] Comment on above: Order Comment: Speci men Type: BLOOD SPECIMENOrdering Facility: [facility] Address: [address] [place] [address] Performed By: #### 5 7021-8 ####[facility] LABIA [id number] [place] [address] [place] MCH (RBC) [Entitic mass] 31.0 pg Normal 26.0-34.0 [facility] Comment on above: Order Comment: Speci men Type: BLOOD SPECIMENOrdering Facility: [facility] Address: [address] [place] [address] Performed By: #### 5 7021-8 ####[facility] LABS[facility] [id number] [place] [address] [place] MCHC (RBC) [Mass/Vol] 32.7 g/dL Normal 30.5-36.0 [facility] Comment on above: Order Comment: Speci men Type: BLOOD SPECIMENOrdering Facility: [facility] Address: [address] [place] [address] Performed By: #### 5 7021-8 ####[facility] LABS[facility] [id number] [place] [address] [place] MCV (RBC) [Entitic vol] 94.8 fL Normal 80.0-100.0 [facility] Comment on above: Order Comment: Speci men Type: BLOOD SPECIMENOrdering Facility: [facility] Address: [address] [place] [address] Performed By: #### 5 7021-8 ####[facility] LABIA [id number] [place] [address] [place] Monocytes (Bld) [#/Vol] 0.26 10*3/uL Normal <0.87 [facility] Comment on above: Order Comment: Speci men Type: BLOOD SPECIMENOrdering Facility: [facility] Address: [address] [place] [address] Performed By: #### 5 7021-8 ####[facility] LABCLIA [id number] [address] [address] [place] Monocytes/100 WBC (Bld) 3.0 % Normal [facility] Comment on above: Order Comment: Speci men Type: BLOOD SPECIMENOrdering Facility: [facility] Address: [address] [place] [address] Performed By: #### 5 7021-8 ####[facility] LABCLIA [id number] [address], [facility]95 [place] Neutrophils (Bld) [#/Vol] 7.47 10*3/uL Normal 1.45-7.50 [facility] Comment on above: Order Comment: Speci men Type: BLOOD SPECIMENOrdering Facility: [facility] Address: [address] [place] [address] Performed By: #### 5 7021-8 ####[facility] LABCLIA [id number] [place] [id number] [place] Neutrophils/100 WBC (Bld) 85.8 % Normal [facility] Comment on above: Order Comment: Speci men Type: BLOOD SPECIMENOrdering Facility: [facility] Address: [address] [place], [place] [address] Performed By: #### 5 7021-8 ####[facility] LABCLIA [id number] [address] [address] [place] Nucleated RBC (Bld) [#/Vol] 10*3/uL Normal <0.01 [facility] Comment on above: Order Comment: Speci men Type: BLOOD SPECIMENOrdering Facility: [facility] Address: [address] [place], [place] [address] Performed By: #### 5 7021-8 ####[facility] LABCLIA [id number] [place] [address] [place] Nucleated RBC/100 WBC (Bld) [Ratio] 0.0 /100 WBC Normal [facility] Comment on above: Order Comment: Speci men Type: BLOOD SPECIMENOrdering Facility: [facility] Address: [address] [place] [address] Performed By: #### 5 7021-8 ####[facility] LABCLIA [id number] [place] [address] [place] Platelet mean volume (Bld) [Entitic vol] 10.0 fL Normal 9.0-12.7 [facility] Comment on above: Order Comment: Speci men Type: BLOOD SPECIMENOrdering Facility: [facility] Address: [address] [place] [address] Performed By: #### 5 7021-8 ####[facility] LABIA [id number] [place] [address] [place] Platelets (Bld) [#/Vol] 394 10*3/uL Normal 150-400 [facility] Comment on above: Order Comment: Speci men Type: BLOOD SPECIMENOrdering Facility: [facility] Address: [address] [place] [address] Performed By: #### 5 7021-8 ####[facility] LABIA [id number] [place] [address] [place] RBC (Bld) [#/Vol] 4.81 10*6/uL Normal 4.20-6.[address] [facility] Comment on above: Order Comment: Speci men Type: BLOOD SPECIMENOrdering Facility: [facility] Address: [address] [place] [address] Performed By: #### 5 7021-8 ####[facility] LABIA [id number] [place] [address] [place] WBC (Bld) [#/Vol] 8.71 10*3/uL Normal 3.70-11.[address] [facility] Comment on above: Order Comment: Speci men Type: BLOOD SPECIMENOrdering Facility: [facility] Address: [address] [place] [address] Performed By: #### 5 7021-8 ####[facility] LABCLIA [id number] [place] [address] [place] CNOVon 05-12-2024 CNOV Normal [facility] Ferritin SerPl-mCncon 2024 Ferritin [Mass/Vol] 204.0 ng/mL Normal 30.3-565.7 [facility] Comment on above: Order Comment: Speci men Type: BLOOD SPECIMENOrdering Facility: [facility] Address: [address] [place] [address] Performed By: #### 5 0190-8, 62305-2, 2275-4 ####[facility] LABCLIA [id number] [place] [address] [place] HISTORY PHYSICALon HISTORY PHYSICAL Normal [facility] Iron and Iron binding capaci ty panelon 05-12-2024 Iron [Mass/Vol] 81 ug/dL Normal 41-186 [facility] Comment on above: Order Comment: Speci men Type: BLOOD SPECIMENOrdering Facility: [facility] Address: [address] [place] [address] Performed By: #### 5 0190-8, 17878-7, 2275-4 ####[facility] LABCLIA [id number] [place] [id number] [place] Iron binding capacity [Mass/Vol] 342 ug/dL Normal 232-386 [facility] Comment on above: Order Comment: Speci men Type: BLOOD SPECIMENOrdering Facility: [facility] Address: [address] [place] [address] Performed By: #### 5 0190-8, 99018-2, 2275-4 ####[facility] LABCLIA [id number] [place] [address] [place] Iron/TIBC [Molar ratio] 23.7 % Normal 15.0-57.0 [facility] Comment on above: Order Comment: Speci men Type: BLOOD SPECIMENOrdering Facility: [facility] Address: [address] [place] [address] Performed By: #### 5 0190-8, 46531-9, 2276-4 ####[facility] LABCLIA [id number] [place] [address] [place] STAPHYLOCOCCUS AUREUS AND MR SA SCREEN, PCR, NASALon 05-12-2024 S. aureus and MRSA panel BARBARA+probe (Nose) Not detected Normal Not Detected [facility] Comment on above: Order Comment: Speci men Type: SWABOrdering Facility: [facility] Address: [address] [place] [address] Performed By: #### S APCR ####[facility] LABCLIA [id number] [place] [address] [place] TYPE AND SCREEN,30 DAYon ABO group Nom (Bld) O [facility] Blood group antibody screen Ql Negative [facility] Rh Nom (Bld) Negative [facility] ABO O Normal [facility] Comment on above: Order Comment: Speci men Type: BLOOD SPECIMENOrdering Facility: [facility] Address: [address] [place] [address] Performed By: #### T SCR30 ####[facility] BLOOD BANKCLIA [id number] [place] [address] [place] Rh Nom (Bld) Negative Normal [facility] Comment on above: Order Comment: Speci men Type: BLOOD SPECIMENOrdering Facility: [facility] Address: [address] [place] [address] Performed By: #### T SCR30 ####[facility] BLOOD BANKIA [id number] [address] [address] [place] MR Cervical spine WO cam ton 02-21-2024 IMPRESSION: Advanced multilevel degenerative canal [...] ALFONSO LOYD on 02/21/2024 5:11 PM via [employer] message. Wireless Network Engineer: [employer] Transcribe Date/Time: Feb 21 2024 4:44P Dictated by : KEVIN MASON MD This examination was interpreted and the report reviewed and electronically signed by: KEVIN MASON MD on Feb 21 2024 8:57PM [facility] DIVISION OF RADIOLOGY * * *Final Report* * * DATE OF EXAM: Feb 21 2024 4:37PM [facility] 0297 - MRI CERVICAL SPINE WO IVCON [...] and facet hypertrophy DIVISION OF RADIOLOGY Provider, [facility] - 02/21/2024 * * *Final Report* * [...] ALFONSO LOYD on 02/21/2024 5:11 PM via [employer] message. Wireless Network Engineer: [facility] Transcribe Date/Time: Feb 21 2024 4:44P Dictated by : KEVIN MASON MD This examination was interpreted and the report reviewed and electronically signed by: KEVIN MASON MD on Feb 21 2024 8:57PM EST [facility] Radiology Study observation (narrative) [facility] MR Cervical spine WO contras tOrdered By: Ccf Provider on 02-21-2024 [facility] MRI CERVICAL SPINE WO IVCONo n 02-21-2024 MRI CERVICAL SPINE WO IVCON Normal [facility] CNPNon 02-03-2024 CNPN Normal [facility] CNOVon 01-13-2024 CNOV Normal [facility] CT LUMBAR SPINE WO IVCONon 1 03-14-2023 CT LUMBAR SPINE WO IVCON Normal [facility] CT Lumbar spine WO contrasto n 01-13-2024 IMPRESSION: Interval L4-5 right facetectomy. Stable additional prior postoperative changes as described. Healing fracture along L5 pedicle screws. 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 Anatomic Lumbar Variant: Transitional L5 vertebral body. L4-5 is considered the level of the iliac crest and there are 5 lumbar-type vertebrae. Wireless Network Engineer: [facility] Transcribe Date/Time: Jan 13 2024 9:06A Dictated by : MORGAN SANCHEZ MD This examination was interpreted and the report reviewed and electronically signed by: ADALBERTO MAYS MD on Jan 13 2024 11:37AM [facility] DIVISION OF RADIOLOGY * * *Final Report* * * DATE OF EXAM: Jan 13 2024 8:57AM [facility] [place] LUMBAR SPINE WO IVCON [...] vertebrae. Anatomic variant: Transitional L5 vertebral body. Manager Gallery (topogram) images: No additional findings. Alignment: There [...] within normal limits. DIVISION OF RADIOLOGY Provider, [facility] - 01/13/2024 * * *Final Report* * * DATE OF EXAM: Jan 13 2024 8:57AM [facility] [place] LUMBAR SPINE WO IVCON [...] vertebrae. Anatomic variant: Transitional L5 vertebral body. Manager Gallery (topogram) images: No additional findings. Alignment: There [...] crest and there are 5 lumbar-type vertebrae. Wireless Network Engineer: [employer] Transcribe Date/Time: Jan 13 2024 9:06A Dictated by : MORGAN SANCHEZ MD This examination was interpreted and the report reviewed and electronically signed by: ADALBERTO MAYS MD on Jan 13 2024 11:37AM EST [facility] CT Lumbar spine WO contrastO rdered By: Ccf Provider on 01-13-2024 [facility] EMG(NEURO/NI)on 01-13-2024 Results can be seen in attached scanned documents. If you are a patient reviewing this test result, call the doctor who ordered the test with any questions. [facility] MR Lumbar spine WO contrasto n 01-13-2024 [...] normal in appearance. DIVISION OF RADIOLOGY Provider, [facility] - 01/13/2024 * * *Final Report* * [...] if clinically judy (more content not included)... [facility] Radiology Study observation (narrative) [facility] MR Thoracic spine WO contras ton 01-13-2024 [...] normal in appearance. DIVISION OF RADIOLOGY [facility] * * *Final Report* [...] 4.9 cm in axial and craniocaudal dimensions (1830 and 15/10). Fluid collection is new in [...] if clinically a (more content not included)... [facility] MRI LUMBAR SPINE WO IVCONon 01-13-2024 MRI LUMBAR SPINE WO IVCON Invalid Interpretation Code [facility] MRI THORACIC SPINE WO IVCONo n 01-13-2024 MRI THORACIC SPINE WO IVCON Invalid Interpretation Code [facility] No Panel InformationOrdered By: Ccf Provider on 01-13-2024 Interpretation and review of laboratory results Abnormal [facility] Radiology Result ACTIONABLE Abnormal [facility] Comment on above: This report contains an [...] contact your provider for the next steps. [facility] No Panel Informationon 01-12 IMPRESSION: * Susceptibility [...] be communicated with the ordering provider via [employer] staff message or phone message by [employer] within 2 business days of report finalization. --END OF FINDING-- ACTIONABLE RESULT: FOLLOW-UP Acuity: Actionable Findings: Neurological System-SPINE Routing Code: NI_2 Recommendation: Unlisted Recommendation (see report) Time Frame: At the discretion of the clinical team. COMMUNICATION: Results will be communicated with the ordering provider via [employer] staff message or phone message by [employer] within 2 business days of report finalization. --END OF FINDING-- Wireless Network Engineer: [employer] Transcribe Date/Time: Jan 13 2024 8:57A Dictated by : TWAN SANTO MD This examination was interpreted and the report reviewed and electronically signed by: TWAN SANTO MD on Jan 13 2024 3:52PM [facility] DIVISION OF RADIOLOGY Radiology Study observation (narrative) [facility] Ambulatory Visit Summaryon 1 Ambulatory Visit Summary Ambulatory Visit Summary BRADEN RODRIGUEZ :1955 Visit Date:12/16/2023 Ambulatory Visit Instructions Your Diagnosis Tubulovillous adenoma of colon Sigmoid diverticulosis Your Care Team Attending Physician - VAMSI JERNIGAN, Camryn Rodriguez Primary Care Physician - Ester Cain MD This Is Your Medications List carvedilol (carvedilol [...] you for choosing us for your care. [facility] General Surgery Office/Clini c Noteon 12-16-2023 [...] trivalent - Not Given Patient Refuses Normal [facility] Comment on above: Result Comment: Elec tronically Signed By: VAMSI JERNIGAN, Camryn Baker\Date and Time Signed: 12/16/23 13:13 EDT CNPNon 12-05-2023 CNPN Normal [facility] 11-26-2023 L Specimen: [id number] Received: 11/27/23 Status: CASANDRA Thurman Num: [id number] Spec Type: Surgical Subm Dr: Camryn Agustin MD FACS Tissues: A Colon Biopsy (CECAL COLON POLYP) Procedures: HE/2, Gross/Micro L4 Age/ Patient Sex Location Account Attending Physician Braden Rodriguez 68/M [place]ELL [id number] Camryn Agustin MD FACS SPEC NUM: [id number] RECD: 11/27/23 STATUS: CASANDRA THURMAN NUM: [id number] KIM: 11/26/23 [facility] DR: Camryn Agustin MD FACS ENTERED: 11/27/23 [facility] DR: Javed,Kale SPEC TYPE: Surgical DEPT: ANI [facility]WILLI[facility] ENTERED BY: [id number] RECV BY: [id number] ORDERED: HE/2, Gross/Micro L4 ORDERED: HE/2, Gross/Micro [...] cassette A1. CPT Codes 88 305 Specimen: [id number] Received: 11/27/23 Status: CASANDRA Thurman Num: [id number] Spec Type: Surgical Subm Dr: Camryn Agustin MD FACS Tissues: A Colon Biopsy (CECAL COLON POLYP) Procedures: HE/2, Gross/Micro L4 Patient: Braden Rodriguez [id number] (Continued) Signed (signature on file) Edward Byers MD 12/02/23 1557 Normal [facility] CNOVon 11-12-2023 CNOV Normal [facility] XR LUMBAR 2V AP/LATon 2023 XR LUMBAR 2V AP/LAT Normal [facility] XR Lumbar spine AP and Later dustin 11-12-2023 IMPRESSION: Intact spinal fusion hardware. Vertebral body heights and sagittal alignment are maintained. Wireless Network Engineer: [facility] Transcribe Date/Time: Nov 12 2023 1:25P Dictated by : LONNIE HERNANDEZ MD This examination was interpreted and the report reviewed and electronically signed by: LONNIE HERNANDEZ MD on Nov 12 2023 1:25PM [facility] DIVISION OF RADIOLOGY * * *Final [...] body heights and sagittal alignment are maintained. Wireless Network Engineer: [employer] Transcribe Date/Time: Nov 12 2023 1:25P Dictated by : LONNIE HERNANDEZ MD This examination was interpreted and the report reviewed and electronically signed by: LONNIE HERNANDEZ MD on Nov 12 2023 1:25PM EST [facility] Radiology Study observation (narrative) [facility] XR Lumbar spine AP and Later alOrdered By: Ccf Provider on 11-12-2023 [facility] CNPNon 11-05-2023 CNPN Normal [facility] CNPNon 10-16-2023 CNPN Normal [facility] CNCOon 10-06-2023 CNCO Letter Text Normal [facility] Basic metabolic 2000 panelon 10-04-2023 Anion gap [Moles/Vol] 10 mmol/L Normal 8-15 [facility] Comment on above: Order Comment: Speci men Type: BLOOD SPECIMENOrdering Facility: [facility] Address: [address] [place] [address] Performed By: #### 2 4321-2 ####[facility] LABIA [id number] [place] [address] [place] Calcium [Mass/Vol] 9.4 mg/dL Normal 8.5-10.2 [facility] Comment on above: Order Comment: Speci men Type: BLOOD SPECIMENOrdering Facility: [facility] Address: [address] [place] [address] Performed By: #### 2 4321-2 ####[facility] LABCLIA [id number] [place] [address] [place] Chloride [Moles/Vol] 104 mmol/L Normal 98-107 [facility] Comment on above: Order Comment: Speci men Type: BLOOD SPECIMENOrdering Facility: [facility] Address: [address] [place] [address] Performed By: #### 2 4321-2 ####[facility] LABCLIA [id number] [place] [address] [place] CO2 [Moles/Vol] 27 mmol/L Normal 22-30 [facility] Comment on above: Order Comment: Speci men Type: BLOOD SPECIMENOrdering Facility: [facility] Address: [address] [place] [address] Performed By: #### 2 4321-2 ####[facility] LABCLIA [id number] [place] [address] [place] Creatinine [Mass/Vol] 0.83 mg/dL Normal 0.73-1.22 [facility] Comment on above: Order Comment: Speci men Type: BLOOD SPECIMENOrdering Facility: [facility] Address: [address] [place] [address] Performed By: #### 2 4321-2 ####[facility] LABIA [id number] [place] [address] [place] Creatinine and Glomerular filtration rate.predicted panel (S/P/Bld) 97 mL/min/1.73m??? Normal >=60 [facility] Comment on above: Order Comment: Speci men Type: BLOOD SPECIMENOrdering Facility: [facility] Address: [address] [place] [address] Result Comment: Yesica mated Glomerular Filtration Rate [...] actual GFR. Performed By: #### 2 4321-2 ####[facility] LABCLIA [id number] [place] [address] [place] Glucose [Mass/Vol] 100 mg/dL High 74-99 [facility] Comment on above: Order Comment: Speci men Type: BLOOD SPECIMENOrdering Facility: [facility] Address: [address] [place] [address] Result Comment: The [place] [employer] (ADA) provides guidance for cutoff [...] Standards of Medical Care in Diabetes 2016, [place] [employer]. Diabetes Care. 2016.39(Suppl 1). Performed By: #### 2 4321-2 ####[facility] LABCLIA [id number] [place] [address] [place] Potassium [Moles/Vol] 3.9 mmol/L Normal 3.7-5.1 [facility] Comment on above: Order Comment: Speci men Type: BLOOD SPECIMENOrdering Facility: [facility] Address: [address] [place] [address] Performed By: #### 2 4321-2 ####[facility] LABCLIA [id number] [place] [address] [place] Sodium [Moles/Vol] 141 mmol/L Normal 136-144 [facility] Comment on above: Order Comment: Speci men Type: BLOOD SPECIMENOrdering Facility: [facility] Address: [address] [place] [address] Performed By: #### 2 4321-2 ####[facility] LABCLIA [id number] [place] [address] [place] Urea nitrogen [Mass/Vol] 15 mg/dL Normal 9-24 [facility] Comment on above: Order Comment: Speci men Type: BLOOD SPECIMENOrdering Facility: [facility] Address: [address] [place] [address] Performed By: #### 2 4321-2 ####[facility] LABCLIA [id number] [place] [address] [place] CBC panel Auto (Bld)on 10-03 Erythrocyte distribution width (RBC) [Ratio] 12.4 % Normal 11.5-15.0 [facility] Comment on above: Order Comment: Speci men Type: BLOOD SPECIMENOrdering Facility: [facility] Address: [address] [place] [address] Performed By: #### 5 8410-2 ####[facility] LABIA [id number] [place] [address] [place] Hematocrit (Bld) [Volume fraction] 37.6 % Low 39.0-51.0 [facility] Comment on above: Order Comment: Speci men Type: BLOOD SPECIMENOrdering Facility: [facility] Address: [address] [place] [address] Performed By: #### 5 8410-2 ####[facility] LABIA [id number] [place] [address] [place] Hemoglobin (Bld) [Mass/Vol] 12.1 g/dL Low 13.0-17.0 [facility] Comment on above: Order Comment: Speci men Type: BLOOD SPECIMENOrdering Facility: [facility] Address: [address] [place] [address] Performed By: #### 5 8410-2 ####[facility] LABIA [id number] [place] [address] [place] MCH (RBC) [Entitic mass] 32.5 pg Normal 26.0-34.0 [facility] Comment on above: Order Comment: Speci men Type: BLOOD SPECIMENOrdering Facility: [facility] Address: [address] [place] [address] Performed By: #### 5 8410-2 ####[facility] LABCLIA [id number] [place] [address] [place] MCHC (RBC) [Mass/Vol] 32.2 g/dL Normal 30.5-36.0 [facility] Comment on above: Order Comment: Speci men Type: BLOOD SPECIMENOrdering Facility: [facility] Address: [address] [place] [address] Performed By: #### 5 8410-2 ####[facility] LABCLIA [id number] [place] [address] [place] MCV (RBC) [Entitic vol] 101.1 fL High 80.0-100.0 [facility] Comment on above: Order Comment: Speci men Type: BLOOD SPECIMENOrdering Facility: [facility] Address: [address] [place] [address] Performed By: #### 5 8410-2 ####[facility] LABIA [id number] [place] [address] [place] Nucleated RBC (Bld) [#/Vol] 10*3/uL Normal <0.01 [facility] Comment on above: Order Comment: Speci men Type: BLOOD SPECIMENOrdering Facility: [facility] Address: [address] [place] [address] Performed By: #### 5 8410-2 ####[facility] LABCLIA [id number] [place] [address] [place] Platelet mean volume (Bld) [Entitic vol] 10.1 fL Normal 9.0-12.7 [facility] Comment on above: Order Comment: Speci men Type: BLOOD SPECIMENOrdering Facility: [facility] Address: [address] [place] [address] Performed By: #### 5 8410-2 ####[facility] LABCLIA [id number] [place] [address] [place] Platelets (Bld) [#/Vol] 352 10*3/uL Normal 150-400 [facility] Comment on above: Order Comment: Speci men Type: BLOOD SPECIMENOrdering Facility: [facility] Address: [address] [place] [address] Performed By: #### 5 8410-2 ####[facility] LABIA [id number] [place] [address] [place] RBC (Bld) [#/Vol] 3.72 10*6/uL Low 4.20-6.[address] [facility] Comment on above: Order Comment: Speci men Type: BLOOD SPECIMENOrdering Facility: [facility] Address: [address] [place] [address] Performed By: #### 5 8410-2 ####[facility] LABIA [id number] [place] [address] [place] WBC (Bld) [#/Vol] 10.84 10*3/uL Normal 3.70-11.00 [facility] Comment on above: Order Comment: Speci men Type: BLOOD SPECIMENOrdering Facility: [facility] Address: [address] [place] [address] Performed By: #### 5 8410-2 ####[facility] LABIA [id number] [place] [address] [place] THERAPY NTon 10-04-2023 THERAPY NT Normal [facility] Basic metabolic 2000 panelon 10-03-2023 Anion gap [Moles/Vol] 10 mmol/L Normal 8-15 [facility] Comment on above: Order Comment: Speci men Type: BLOOD SPECIMENOrdering Facility: [facility] Address: [address] [place] [address] Performed By: #### 2 4321-2 ####[facility] LABCLIA [id number] [id number] [address] [place] Calcium [Mass/Vol] 9.0 mg/dL Normal 8.5-10.2 [facility] Comment on above: Order Comment: Speci men Type: BLOOD SPECIMENOrdering Facility: [facility] Address: [address] [place] [address] Performed By: #### 2 4321-2 ####[facility] LABCLIA [id number] [place] [address] [place] Chloride [Moles/Vol] 105 mmol/L Normal 98-107 [facility] Comment on above: Order Comment: Speci men Type: BLOOD SPECIMENOrdering Facility: [facility] Address: [address] [place] [address] Performed By: #### 2 4321-2 ####[facility] LABCLIA [id number] [place] [address] [place] CO2 [Moles/Vol] 23 mmol/L Normal 22-30 [facility] Comment on above: Order Comment: Speci men Type: BLOOD SPECIMENOrdering Facility: [facility] Address: [address] [place] [address] Performed By: #### 2 4321-2 ####[facility] LABCLIA [id number] [place] [address] [place] Creatinine [Mass/Vol] 0.92 mg/dL Normal 0.73-1.22 [facility] Comment on above: Order Comment: Speci men Type: BLOOD SPECIMENOrdering Facility: [facility] Address: [address] [place] [address] Performed By: #### 2 4321-2 ####[facility] LABCLIA [id number] [place] [address] [place] Creatinine and Glomerular filtration rate.predicted panel (S/P/Bld) 92 mL/min/1.73m??? Normal >=60 [facility] Comment on above: Order Comment: Speci men Type: BLOOD SPECIMENOrdering Facility: [facility] Address: [address] [place] [address] Result Comment: Yesica mated Glomerular Filtration Rate [...] actual GFR. Performed By: #### 2 4321-2 ####[facility] [id number] [place] [address] [place] Glucose [Mass/Vol] 121 mg/dL High 74-99 [facility] Comment on above: Order Comment: Roberto Carlos lion Type: BLOOD SPECIMENOrdering Facility: [facility] Address: [address] [place] [address] Result Comment: The [place] [employer] (ADA) provides guidance for cutoff [...] Standards of Medical Care in Diabetes 2016, [place] [employer]. Diabetes Care. 2016.39(Suppl 1). Performed By: #### 2 4321-2 ####[facility] [id number] [place] [address] [place] Potassium [Moles/Vol] 4.0 mmol/L Normal 3.7-5.1 [facility] Comment on above: Order Comment: Roberto Carlos lion Type: BLOOD SPECIMENOrdering Facility: [facility] Address: [address] [place] [address] Performed By: #### 2 4321-2 ####[facility] LABCLIA [id number] [place] [address] [place] Sodium [Moles/Vol] 138 mmol/L Normal 136-144 [facility] Comment on above: Order Comment: Speci men Type: BLOOD SPECIMENOrdering Facility: [facility] Address: [address] [place] [address] Performed By: #### 2 4321-2 ####[facility] LABCLIA [id number] [place] [address] [place] Urea nitrogen [Mass/Vol] 21 mg/dL Normal 9-24 [facility] Comment on above: Order Comment: Speci men Type: BLOOD SPECIMENOrdering Facility: [facility] Address: [address] [place] [address] Performed By: #### 2 4321-2 ####[facility] LABIA [id number] [place] [address] [place] CASE MGT INIT ASSESon 2023 CASE MGT INIT ASSES Normal [facility] CBC panel Auto (Bld)on 10-02 Erythrocyte distribution width (RBC) [Ratio] 11.9 % Normal 11.5-15.0 [facility] Comment on above: Order Comment: Speci men Type: BLOOD SPECIMENOrdering Facility: [facility] Address: [address] [place] [address] Performed By: #### 5 8410-2 ####[facility] LABIA [id number] [place] [address] [place] Hematocrit (Bld) [Volume fraction] 35.0 % Low 39.0-51.0 [facility] Comment on above: Order Comment: Speci men Type: BLOOD SPECIMENOrdering Facility: [facility] Address: [address] [place] [address] Performed By: #### 5 8410-2 ####[facility] LABCLIA [id number] [place] [address] [place] Hemoglobin (Bld) [Mass/Vol] 11.5 g/dL Low 13.0-17.0 [facility] Comment on above: Order Comment: Speci men Type: BLOOD SPECIMENOrdering Facility: [facility] Address: [address] [place] [address] Performed By: #### 5 8410-2 ####[facility] LABIA [id number] [place] [address] [place] MCH (RBC) [Entitic mass] 32.0 pg Normal 26.0-34.0 [facility] Comment on above: Order Comment: Speci men Type: BLOOD SPECIMENOrdering Facility: [facility] Address: [address] [place] [address] Performed By: #### 5 8410-2 ####[facility] LABIA [id number] [place] [address] [place] MCHC (RBC) [Mass/Vol] 32.9 g/dL Normal 30.5-36.0 [facility] Comment on above: Order Comment: Speci men Type: BLOOD SPECIMENOrdering Facility: [facility] Address: [address] [place] [address] Performed By: #### 5 8410-2 ####[facility] LABIA [id number] [place] [address] [place] MCV (RBC) [Entitic vol] 97.5 fL Normal 80.0-100.0 [facility] Comment on above: Order Comment: Speci men Type: BLOOD SPECIMENOrdering Facility: [facility] Address: [address] [place] [address] Performed By: #### 5 8410-2 ####[facility] LABCLIA [id number] [place] [address] [place] Nucleated RBC (Bld) [#/Vol] 10*3/uL Normal <0.01 [facility] Comment on above: Order Comment: Speci men Type: BLOOD SPECIMENOrdering Facility: [facility] Address: [address] [place] [address] Performed By: #### 5 8410-2 ####[facility] LABIA [id number] [place] [address] [place] Platelet mean volume (Bld) [Entitic vol] 10.4 fL Normal 9.0-12.7 [facility] Comment on above: Order Comment: Speci men Type: BLOOD SPECIMENOrdering Facility: [facility] Address: [address] [place] [address] Performed By: #### 5 8410-2 ####[facility] LABIA [id number] [place] [address] [place] Platelets (Bld) [#/Vol] 354 10*3/uL Normal 150-400 [facility] Comment on above: Order Comment: Speci men Type: BLOOD SPECIMENOrdering Facility: [facility] Address: [address] [place] [address] Performed By: #### 5 8410-2 ####[facility] LABIA [id number] [place] [address] [place] RBC (Bld) [#/Vol] 3.59 10*6/uL Low 4.20-6.[address] [facility] Comment on above: Order Comment: Speci men Type: BLOOD SPECIMENOrdering Facility: [facility] Address: [address] [place] [address] Performed By: #### 5 8410-2 ####[facility] LABIA [id number] [place] [address] [place] WBC (Bld) [#/Vol] 11.20 10*3/uL High 3.70-11.00 [facility] Comment on above: Order Comment: Speci men Type: BLOOD SPECIMENOrdering Facility: [facility] Address: [address] [place] [address] Performed By: #### 5 8410-2 ####[facility] LABCLIA [id number] [place] [address] [place] CNDSon 10-03-2023 CNDS Normal [facility] THERAPY NTon 10-03-2023 THERAPY NT Normal [facility] NT Normal [facility] ANES POSTPROC EVALon 024 ANES POSTPROC EVAL Normal [facility] ANES PRE-OPon 10-02-2023 ANES PRE-OP Normal [facility] BRIEF OP NOTon 10-02-2023 BRIEF OP NOT Normal [facility] OPERATIVE NOon 10-02-2023 OPERATIVE NO Normal [facility] TYPE + SCREENon 10-02-2023 ABO O Normal [facility] Comment on above: Order Comment: Speci men Type: BLOOD SPECIMENOrdering Facility: [facility] Address: [address] [place] [address] Performed By: #### T SCR ####[facility]ANKCLIA [id number] [place] [address] [place] HISTORICAL AB SCR STATUS Negative Normal [facility] Comment on above: Order Comment: Speci men Type: BLOOD SPECIMENOrdering Facility: [facility] Address: [address] [place] [address] Performed By: #### T SCR ####[facility] BLOOD BANKCLIA [id number] [place] [address] [place] Rh Nom (Bld) Negative Normal [facility] Comment on above: Order Comment: Speci men Type: BLOOD SPECIMENOrdering Facility: [facility] Address: [address] [place] [address] Performed By: #### T SCR ####[facility] BLOOD BANKCLIA [id number] [place] [address] [place] TYPE AND SCREEN EXPIRATION 10/05/2023 23:59 Normal [facility] Comment on above: Order Comment: Speci men Type: BLOOD SPECIMENOrdering Facility: [facility] Address: [address] [place] [address] Performed By: #### T SCR ####CC [facility] [id number] [place] [address] [place] XR LUMBAR SPECIFY 1Von 10-01 XR LUMBAR SPECIFY 1V Normal [facility] CNNURSEon 09-30-2023 CNNURSE Normal [facility] CNPNon 09-30-2023 CNPN Normal [facility] CNPNon 09-24-2023 CNPN Normal [facility] CNPNon 09-16-2023 CNPN Normal [facility] CNCOon 09-15-2023 CNCO Letter Text Normal [facility] ALLIED HEALTHon 09-10-2023 ALLIED HEALTH Normal [facility] Basic metabolic 2000 panelon 09-10-2023 Anion gap [Moles/Vol] 10 mmol/L Normal 8-15 [facility] Comment on above: Order Comment: Speci men Type: BLOOD SPECIMENOrdering Facility: [facility] Address: [address] [place] [address] Performed By: #### 2 4321-2 ####[facility] LABIA [id number] [place] [address] [place] Calcium [Mass/Vol] 9.6 mg/dL Normal 8.5-10.2 [facility] Comment on above: Order Comment: Speci men Type: BLOOD SPECIMENOrdering Facility: [facility] Address: [address] [place] [address] Performed By: #### 2 4321-2 ####[facility] LABIA [id number] [place] [address] [place] Chloride [Moles/Vol] 102 mmol/L Normal 98-107 [facility] Comment on above: Order Comment: Speci men Type: BLOOD SPECIMENOrdering Facility: [facility] Address: [address] [place] [address] Performed By: #### 2 4321-2 ####[facility] LABCLIA [id number] [place] [address] [place] CO2 [Moles/Vol] 27 mmol/L Normal 22-30 [facility] Comment on above: Order Comment: Speci men Type: BLOOD SPECIMENOrdering Facility: [facility] Address: [address] [place] [address] Performed By: #### 2 4321-2 ####[facility] LABIA [id number] [place] [address] [place] Creatinine [Mass/Vol] 0.88 mg/dL Normal 0.73-1.22 [facility] Comment on above: Order Comment: Speci men Type: BLOOD SPECIMENOrdering Facility: [facility] Address: [address] [place] [address] Performed By: #### 2 4321-2 ####[facility] LABIA [id number] [place] [address] [place] Creatinine and Glomerular filtration rate.predicted panel (S/P/Bld) 95 mL/min/1.73m??? Normal >=60 [facility] Comment on above: Order Comment: Speci men Type: BLOOD SPECIMENOrdering Facility: [facility] Address: [address] [place] [address] Result Comment: Yesica mated Glomerular Filtration Rate [...] actual GFR. Performed By: #### 2 4321-2 ####[facility] LABIA [id number] [place] [id number] [place] Glucose [Mass/Vol] 82 mg/dL Normal 74-99 [facility] Comment on above: Order Comment: Speci men Type: BLOOD SPECIMENOrdering Facility: [facility] Address: [address] [place] [address] Result Comment: The [place] [employer] (ADA) provides guidance for cutoff [...] Standards of Medical Care in Diabetes 2016, [place] [employer]. Diabetes Care. 2016.39(Suppl 1). Performed By: #### 2 4321-2 ####[facility] LABCLIA [id number] [place] [address] [place] Potassium [Moles/Vol] 4.3 mmol/L Normal 3.7-5.1 [facility] Comment on above: Order Comment: Speci men Type: BLOOD SPECIMENOrdering Facility: [facility] Address: [address] [place] [id number] Performed By: #### 2 4321-2 ####[facility] LABCLIA [id number] [place] [address] [place] Sodium [Moles/Vol] 139 mmol/L Normal 136-144 [facility] Comment on above: Order Comment: Speci men Type: BLOOD SPECIMENOrdering Facility: [facility] Address: [address] [place] [address] Performed By: #### 2 4321-2 ####[facility] LABCLIA [id number] [place] [address] [place] Urea nitrogen [Mass/Vol] 22 mg/dL Normal 9-24 [facility] Comment on above: Order Comment: Speci men Type: BLOOD SPECIMENOrdering Facility: [facility] Address: [address] [place], [place] [address] Performed By: #### 2 4321-2 ####[facility] LABCLIA [id number] [place] [address] [place] CASE MANAGEMon 09-10-2023 CASE MANAGEM Normal [facility] CASE MANAGEM Normal [facility] CNDSon 09-10-2023 CNDS Normal [facility] MRI LUMBAR SPINE WO IVCONon 09-10-2023 MRI LUMBAR SPINE WO IVCON Normal [facility] THERAPY NTon 09-10-2023 THERAPY NT Normal [facility] CASE MANAGEMon 09-09-2023 CASE MANAGEM Normal [facility] Magnesium SerPl-mCncon 09-08 Magnesium [Mass/Vol] 2.1 mg/dL Normal 1.7-2.3 [facility] Comment on above: Order Comment: Speci men Type: BLOOD SPECIMENOrdering Facility: [facility] Address: [address] [place] [address] Performed By: #### 1 9123-9, 27818-3 ####[facility] LABCLIA [id number] [place] [address] [place] Renal function 2000 panelon 09-09-2023 Albumin [Mass/Vol] 3.9 g/dL Normal 3.9-4.9 [facility] Comment on above: Order Comment: Speci men Type: BLOOD SPECIMENOrdering Facility: [facility] Address: [address] [place] [address] Performed By: #### 1 9123-9, 54730-0 ####[facility] LABCLIA [id number] [place] [address] [place] Anion gap [Moles/Vol] 13 mmol/L Normal 8-15 [facility] Comment on above: Order Comment: Speci men Type: BLOOD SPECIMENOrdering Facility: [facility] Address: [address] [place] [address] Performed By: #### 1 9123-9, 88488-8 ####[facility] LABCLIA [id number] [place] [address] [place] Calcium [Mass/Vol] 9.7 mg/dL Normal 8.5-10.2 [facility] Comment on above: Order Comment: Speci men Type: BLOOD SPECIMENOrdering Facility: [facility] Address: [address] [place] [address] Performed By: #### 1 9123-9, 17483-5 ####[facility] LABCLIA [id number] [place] [address] [place] Chloride [Moles/Vol] 101 mmol/L Normal 98-107 [facility] Comment on above: Order Comment: Speci men Type: BLOOD SPECIMENOrdering Facility: [facility] Address: [address] [place] [address] Performed By: #### 1 9123-9, 87186-3 ####[facility] LABCLIA [id number] [place] [address] [place] CO2 [Moles/Vol] 25 mmol/L Normal 22-30 [facility] Comment on above: Order Comment: Speci men Type: BLOOD SPECIMENOrdering Facility: [facility] Address: [address] [place] [address] Performed By: #### 1 9123-9, 11410-7 ####[facility] LABCLIA [id number] [place] [address] [place] Creatinine [Mass/Vol] 0.99 mg/dL Normal 0.73-1.22 [facility] Comment on above: Order Comment: Speci men Type: BLOOD SPECIMENOrdering Facility: [facility] Address: [address] [place] [address] Performed By: #### 1 9123-9, 28245-7 ####[facility] LABCLIA [id number] [place] [address] [place] Creatinine and Glomerular filtration rate.predicted panel (S/P/Bld) 84 mL/min/1.73m??? Normal >=60 [facility] Comment on above: Order Comment: Roberto Carlos lion Type: BLOOD SPECIMENOrdering Facility: [facility] Address: [address] [place] [address] Result Comment: Yesica mated Glomerular Filtration Rate [...] actual GFR. Performed By: #### 1 9123-9, 61827-6 ####[facility] LABCLIA [id number] [place] [address] [place] Glucose [Mass/Vol] 123 mg/dL High 74-99 [facility] Comment on above: Order Comment: Roberto Carlos lion Type: BLOOD SPECIMENOrdering Facility: [facility] Address: [address] [place] [address] Result Comment: The [place] [employer] (ADA) provides guidance for cutoff [...] Standards of Medical Care in Diabetes 2016, [place] [employer]. Diabetes Care. 2016.39(Suppl 1). Performed By: #### 1 9123-9, 03310-5 ####[facility] LABIA [id number] [place] [address] [place] Phosphate [Mass/Vol] 3.3 mg/dL Normal 2.7-4.8 [facility] Comment on above: Order Comment: Speci men Type: BLOOD SPECIMENOrdering Facility: [facility] Address: [address] [place] [address] Performed By: #### 1 9123-9, 96320-3 ####[facility] LABCLIA [id number] [place] [address] [place] Potassium [Moles/Vol] 4.4 mmol/L Normal 3.7-5.1 [facility] Comment on above: Order Comment: Speci men Type: BLOOD SPECIMENOrdering Facility: [facility] Address: [address] [place] [address] Performed By: #### 1 9123-9, 31994-1 ####[facility] LABCLIA [id number] [place] [address] [place] Sodium [Moles/Vol] 139 mmol/L Normal 136-144 [facility] Comment on above: Order Comment: Speci men Type: BLOOD SPECIMENOrdering Facility: [facility] Address: [address] [place] [address] Performed By: #### 1 9123-9, 75074-7 ####[facility] LABCLIA [id number] [place] [address] [place] Urea nitrogen [Mass/Vol] 25 mg/dL High 9-24 [facility] Comment on above: Order Comment: Speci men Type: BLOOD SPECIMENOrdering Facility: [facility] Address: [address] [place] [address] Performed By: #### 1 9123-9, 75031-8 ####[facility] LABCLIA [id number] [place] [address] [place] THERAPY NTon 09-09-2023 THERAPY NT Normal [facility] THERAPY NT Normal [facility] CASE MGT INIT ASSESon 2023 CASE MGT INIT ASSES Normal [facility] ED PROV NOTEon 09-08-2023 ED PROV NOTE Normal [facility] HISTORY PHYSICALon HISTORY PHYSICAL Normal [facility] CBC W Auto Differential pane l (Bld)on 09-07-2023 Basophils (Bld) [#/Vol] 0.00 10*3/uL Normal <0.11 [facility] Comment on above: Order Comment: Speci men Type: BLOOD SPECIMENOrdering Facility: [facility] Address: [address] [place] [address] Performed By: #### 5 7021-8, 4537-7 ####[facility] LABCLIA [id number] [place] [address] [place] Basophils/100 WBC (Bld) 0.0 % Normal [facility] Comment on above: Order Comment: Speci men Type: BLOOD SPECIMENOrdering Facility: [facility] Address: [address] [place] [address] Performed By: #### 5 7021-8, 4537-7 ####[facility] LABCLIA [id number] [place] [address] [place] Differential cell count method Nom (Bld) Manual Normal [facility] Comment on above: Order Comment: Speci men Type: BLOOD SPECIMENOrdering Facility: [facility] Address: [address] [place] [address] Performed By: #### 5 7021-8, 4537-7 ####[facility] LABCLIA [id number] [place] [address] [place] Eosinophils (Bld) [#/Vol] 0.00 10*3/uL Normal <0.46 [facility] Comment on above: Order Comment: Speci men Type: BLOOD SPECIMENOrdering Facility: [facility] Address: [address] [place] [address] Performed By: #### 5 7021-8, 4537-7 ####[facility] LABCLIA [id number] [place] [address] [place] Eosinophils/100 WBC (Bld) 0.0 % Normal [facility] Comment on above: Order Comment: Speci men Type: BLOOD SPECIMENOrdering Facility: [facility] Address: [address] [place] [address] Performed By: #### 5 7021-8, 4537-7 ####[facility] LABCLIA [id number] [place] [address] [place] Erythrocyte distribution width (RBC) [Ratio] 13.3 % Normal 11.5-15.0 [facility] Comment on above: Order Comment: Speci men Type: BLOOD SPECIMENOrdering Facility: [facility] Address: [address] [place] [address] Performed By: #### 5 7021-8, 4537-7 ####[facility] LABCLIA [id number] [place] [address] [place] Hematocrit (Bld) [Volume fraction] 38.1 % Low 39.0-51.0 [facility] Comment on above: Order Comment: Speci men Type: BLOOD SPECIMENOrdering Facility: [facility] Address: [address] [place] [address] Performed By: #### 5 7021-8, 4537-7 ####[facility] LABCLIA [id number] [place] [address] [place] Hemoglobin (Bld) [Mass/Vol] 12.5 g/dL Low 13.0-17.0 [facility] Comment on above: Order Comment: Speci men Type: BLOOD SPECIMENOrdering Facility: [facility] Address: [address] [place] [address] Performed By: #### 5 7021-8, 4537-7 ####[facility] LABCLIA [id number] [place] [address] [place] Lymphocytes (Bld) [#/Vol] 1.64 10*3/uL Normal 1.00-4.00 [facility] Comment on above: Order Comment: Speci men Type: BLOOD SPECIMENOrdering Facility: [facility] Address: [address] [place] [address] Performed By: #### 5 7021-8, 4537-7 ####[facility] LABCLIA [id number] [place] [address] [place] Lymphocytes/100 WBC (Bld) 12.2 % Normal [facility] Comment on above: Order Comment: Speci men Type: BLOOD SPECIMENOrdering Facility: [facility] Address: [address] [place] [address] Performed By: #### 5 7021-8, 453-7 ####[facility] LABCLIA [id number] [place] [address] [place] MCH (RBC) [Entitic mass] 32.6 pg Normal 26.0-34.0 [facility] Comment on above: Order Comment: Speci men Type: BLOOD SPECIMENOrdering Facility: [facility] Address: [address] [place] [address] Performed By: #### 5 7021-8, 4537-7 ####[facility] LABIA [id number] [place] [address] [place] MCHC (RBC) [Mass/Vol] 32.8 g/dL Normal 30.5-36.0 [facility] Comment on above: Order Comment: Speci men Type: BLOOD SPECIMENOrdering Facility: [facility] Address: [address] [place] [address] Performed By: #### 5 7021-8, 4537-7 ####[facility] LABCLIA [id number] [place] [address] [place] MCV (RBC) [Entitic vol] 99.2 fL Normal 80.0-100.0 [facility] Comment on above: Order Comment: Speci men Type: BLOOD SPECIMENOrdering Facility: [facility] Address: [address] [place] [address] Performed By: #### 5 7021-8, 4536-7 ####[facility] LABCLIA [id number] [place] [address] [place] Monocytes (Bld) [#/Vol] 1.40 10*3/uL High <0.87 [facility] Comment on above: Order Comment: Speci men Type: BLOOD SPECIMENOrdering Facility: [facility] Address: [address] [place] [address] Performed By: #### 5 7021-8, 7 ####[facility] LABCLIA [id number] [place] [address] [place] Monocytes/100 WBC (Bld) 10.4 % Normal [facility] Comment on above: Order Comment: Speci men Type: BLOOD SPECIMENOrdering Facility: [facility] Address: [address] [place] [address] Performed By: #### 5 7021-8, 7 ####[facility] LABCLIA [id number] [place] [address] [place] Neutrophils (Bld) [#/Vol] 10.39 10*3/uL High 1.45-7.50 [facility] Comment on above: Order Comment: Speci men Type: BLOOD SPECIMENOrdering Facility: [facility] Address: [address] [place] [address] Performed By: #### 5 7021-8, 7 ####[facility] LABCLIA [id number] [place] [address] [place] Neutrophils/100 WBC (Bld) 77.4 % Normal [facility] Comment on above: Order Comment: Speci men Type: BLOOD SPECIMENOrdering Facility: [facility] Address: [address] [place] [address] Performed By: #### 5 7021-8, 4536-09 ####[facility] LABCLIA [id number] [place] [address] [place] Nucleated RBC (Bld) [#/Vol] 10*3/uL Normal <0.01 [facility] Comment on above: Order Comment: Speci men Type: BLOOD SPECIMENOrdering Facility: [facility] Address: [address] [place] [address] Performed By: #### 5 7021-8, 4536-7 ####[facility] LABIA [id number] [place] [address] [place] Nucleated RBC/100 WBC (Bld) [Ratio] 0.0 /100 WBC Normal [facility] Comment on above: Order Comment: Speci men Type: BLOOD SPECIMENOrdering Facility: [facility] Address: [address] [place] [address] Performed By: #### 5 7021-8, 4536-7 ####[facility] LABIA [id number] [place] [address] [place] Platelet mean volume (Bld) [Entitic vol] 9.9 fL Normal 9.0-12.7 [facility] Comment on above: Order Comment: Speci men Type: BLOOD SPECIMENOrdering Facility: [facility] Address: [address] [place] [address] Performed By: #### 5 7021-8, 7 ####[facility] LABIA [id number] [place] [address] [place] Platelets (Bld) [#/Vol] 285 10*3/uL Normal 150-400 [facility] Comment on above: Order Comment: Speci men Type: BLOOD SPECIMENOrdering Facility: [facility] Address: [address] [place] [address] Performed By: #### 5 7021-8, 7-7 ####[facility] LABIA [id number] [place] [address] [place] Platelets Estimate (Bld) [#/Vol] Adequate Normal [facility] Comment on above: Order Comment: Speci men Type: BLOOD SPECIMENOrdering Facility: [facility] Address: [address] [place] [address] Performed By: #### 5 7021-8, 4537-7 ####[facility] LABCLIA [id number] [place] [address] [place] RBC (Bld) [#/Vol] 3.84 10*6/uL Low 4.20-6.[address] [facility] Comment on above: Order Comment: Speci men Type: BLOOD SPECIMENOrdering Facility: [facility] Address: [address] [place] [address] Performed By: #### 5 7021-8, 4537-7 ####[facility] LABCLIA [id number] [place] [address] [place] RED CELL MORPH Reviewed: unremarkable Normal [facility] Comment on above: Order Comment: Speci men Type: BLOOD SPECIMENOrdering Facility: [facility] Address: [address] [place] [address] Performed By: #### 5 7021-8, 4537-7 ####[facility] LABCLIA [id number] [place] [address] [place] WBC (Bld) [#/Vol] 13.43 10*3/uL High 3.70-11.00 [facility] Comment on above: Order Comment: Speci men Type: BLOOD SPECIMENOrdering Facility: [facility] Address: [address] [place] [address] Performed By: #### 5 7021-8, 4537-7 ####[facility] LABCLIA [id number] [place] [address] [place] CONSULTon 09-07-2023 CONSULT Normal [facility] CRP SerPl-mCncon 09-07-2023 CRP [Mass/Vol] mg/L Normal <0.9 [facility] Comment on above: Order Comment: Speci men Type: BLOOD SPECIMENOrdering Facility: [facility] Address: [address] [place] [address] Performed By: #### 2 432-8, 1987-07, , ####[facility] LABCLIA [id number] [address] [address] [place] LUMBAR SPINE WO IVCONon 0 09-07-2023 CT LUMBAR SPINE WO IVCON Normal [facility] Comprehensive metabolic 2000 panelon 09-07-2023 Albumin [Mass/Vol] 4.0 g/dL Normal 3.9-4.9 [facility] Comment on above: Order Comment: Speci men Type: BLOOD SPECIMENOrdering Facility: [facility] Address: [address] [place] [address] Performed By: #### 2 4328, 1987-07, , ####[facility] LABCLIA [id number] [place] [id number] [place] ALP [Catalytic activity/Vol] 136 U/L High 38-113 [facility] Comment on above: Order Comment: Speci men Type: BLOOD SPECIMENOrdering Facility: [facility] Address: [address] [place] [address] Performed By: #### 2 4328, 1987-07, , ####[facility] LABCLIA [id number] [address] [address] [place] ALT [Catalytic activity/Vol] 20 U/L Normal 10-54 [facility] Comment on above: Order Comment: Speci men Type: BLOOD SPECIMENOrdering Facility: [facility] Address: [address] [place] [address] Performed By: #### 2 432-8, 1987-07, , ####[facility] LABCLIA [id number] [address] [address] [place] Anion gap [Moles/Vol] 10 mmol/L Normal 8-15 [facility] Comment on above: Order Comment: Speci men Type: BLOOD SPECIMENOrdering Facility: [facility] Address: [address] [place] [address] Performed By: #### 2 4323-8, 1987-07, , 87682-2 ####[facility] LABCLIA [id number] [address] [address] [place] AST [Catalytic activity/Vol] 19 U/L Normal 14-40 [facility] Comment on above: Order Comment: Speci men Type: BLOOD SPECIMENOrdering Facility: [facility] Address: [address] [place] [address] Performed By: #### 2 432-8, 1987-07, , 27795-4 ####[facility] LABCLIA [id number] [place] [address] [place] Bilirubin [Mass/Vol] 0.6 mg/dL Normal 0.2-1.3 [facility] Comment on above: Order Comment: Speci men Type: BLOOD SPECIMENOrdering Facility: [facility] Address: [address] [place] [address] Performed By: #### 2 4323-8, 1987-07, , 71474-8 ####[facility] LABCLIA [id number] [place] [address] [place] Calcium [Mass/Vol] 9.7 mg/dL Normal 8.5-10.2 [facility] Comment on above: Order Comment: Speci men Type: BLOOD SPECIMENOrdering Facility: [facility] Address: [address] [place] [address] Performed By: #### 2 4323-8, 1987-07, , 15604-7 ####[facility] LABCLIA [id number] [address] [address] [place] Chloride [Moles/Vol] 105 mmol/L Normal 98-107 [facility] Comment on above: Order Comment: Speci men Type: BLOOD SPECIMENOrdering Facility: [facility] Address: [address] [place] [address] Performed By: #### 2 4323-8, 1987-07, , 80979-9 ####[facility] LABCLIA [id number] [place] [address] [place] CO2 [Moles/Vol] 26 mmol/L Normal 22-30 [facility] Comment on above: Order Comment: Speci men Type: BLOOD SPECIMENOrdering Facility: [facility] Address: [address] [place] [address] Performed By: #### 2 4323-8, 1987-07, , 09411-0 ####[facility] LABIA [id number] [place] [address] [place] Creatinine [Mass/Vol] 0.93 mg/dL Normal 0.73-1.22 [facility] Comment on above: Order Comment: Speci men Type: BLOOD SPECIMENOrdering Facility: [facility] Address: [address] [place] [address] Performed By: #### 2 4323-8, 1987-07, , 74963-5 ####[facility] LABIA [id number] [place] [address] [place] Creatinine and Glomerular filtration rate.predicted panel (S/P/Bld) 91 mL/min/1.73m??? Normal >=60 [facility] Comment on above: Order Comment: Speci men Type: BLOOD SPECIMENOrdering Facility: [facility] Address: [address] [place] [address] Result Comment: Yesica mated Glomerular Filtration Rate [...] Performed By: #### 2 4322-10, 1987-07, , 18928-2 ####[facility] LABCLIA [id number] [address] [address] [place] Glucose [Mass/Vol] 90 mg/dL Normal 74-99 [facility] Comment on above: Order Comment: Speci men Type: BLOOD SPECIMENOrdering Facility: [facility] Address: [address] [place] [address] Result Comment: The [place] [employer] (ADA) provides guidance for cutoff [...] Standards of Medical Care in Diabetes 2016, [place] [employer]. Diabetes Care. 2016.39(Suppl 1). Performed By: #### 2 4322-10, 1987-07, , 43822-5 ####[facility] LABCLIA [id number] [address] [address] [place] Potassium [Moles/Vol] 3.8 mmol/L Normal 3.7-5.1 [facility] Comment on above: Order Comment: Roberto Carlos lion Type: BLOOD SPECIMENOrdering Facility: [facility] Address: [address] [place] [address] Performed By: #### 2 4322-10, 1987-07, , 97226-2 ####[facility] LABCLIA [id number] [address] [address] [place] Protein [Mass/Vol] 6.0 g/dL Low 6.3-8.0 [facility] Comment on above: Order Comment: Speci men Type: BLOOD SPECIMENOrdering Facility: [facility] Address: [address] [place] [address] Performed By: #### 2 4323-8, 1987-07, , 06954-6 ####[facility] LABIA [id number] [place] [address] [place] Sodium [Moles/Vol] 141 mmol/L Normal 136-144 [facility] Comment on above: Order Comment: Speci men Type: BLOOD SPECIMENOrdering Facility: [facility] Address: [address] [place] [address] Performed By: #### 2 4323-8, 1987-07, , 63831-6 ####[facility] LABIA [id number] [place] [id number] [place] Urea nitrogen [Mass/Vol] 29 mg/dL High 9-24 [facility] Comment on above: Order Comment: Speci men Type: BLOOD SPECIMENOrdering Facility: [facility] Address: [address] [place] [address] Performed By: #### 2 4323-8, 1987-07, , 69126-0 ####[facility] LABIA [id number] [address] [address] [place] ESR Westergren method (Bld) [Velocity]on 09-07-2023 ESR (Bld) [Velocity] 5 mm/h Normal 0-15 [facility] Comment on above: Order Comment: Speci men Type: BLOOD SPECIMENOrdering Facility: [facility] Address: [address] [place] [address] Performed By: #### 5 7021-8, 4537-7 ####[facility] LABCLIA [id number] [place] [address] [place] Magnesium [facility] 09-06 Magnesium [Mass/Vol] 2.1 mg/dL Normal 1.7-2.3 [facility] Comment on above: Order Comment: Speci men Type: BLOOD SPECIMENOrdering Facility: [facility] Address: [address] [place] [address] Performed By: #### 2 4323-8, 1987-07, , 50216-8 ####[facility] LABIA [id number] [place] [address] [place] NT-proBNP [facility] 09-06 Natriuretic peptide.B prohormone N-Terminal [Mass/Vol] 153 pg/mL High <125 [facility] Comment on above: Order Comment: Speci men Type: BLOOD SPECIMENOrdering Facility: [facility] Address: [address] [place] [address] Performed By: #### 2 4323-8, 1987-07, , 23986-9 ####[facility] LABIA [id number] [place] [address] [place] US DVT LOWER BILon US DVT LOWER JAYDON Normal [facility] Urinalysis complete panel (U )on 09-07-2023 Bacteria LM.HPF (Urine sed) [#/Area] Negative Normal Negative [facility] Comment on above: Order Comment: Speci men Type: URINE SPECIMENOrdering Facility: [facility] Address: [address] [place] [address] Performed By: #### 2 4356-8 ####[facility] LABIA [id number] [place] [address] [place] Bilirubin Ql (U) Negative Normal Negative [facility] Comment on above: Order Comment: Speci men Type: URINE SPECIMENOrdering Facility: [facility] Address: [address] [place] [address] Performed By: #### 2 4356-8 ####[facility] LABCLIA [id number] [place] [address] [place] Clarity (Unsp spec) Clear Normal Clear [facility] Comment on above: Order Comment: Speci men Type: URINE SPECIMENOrdering Facility: [facility] Address: [address] [place] [address] Performed By: #### 2 4356-8 ####[facility] LABCLIA [id number] [place] [address] [place] Color (U) Yellow Normal Yellow [facility] Comment on above: Order Comment: Speci men Type: URINE SPECIMENOrdering Facility: [facility] Address: [address] [place] [address] Performed By: #### 2 4356-8 ####[facility] LABCLIA [id number] [place] [address] [place] Epithelial cells LM.HPF (Urine sed) [#/Area] None Seen Normal [facility] Comment on above: Order Comment: Speci men Type: URINE SPECIMENOrdering Facility: [facility] Address: [address] [place] [address] Performed By: #### 2 4356-8 ####[facility] LABCLIA [id number] [place] [address] [place] Glucose Test strip (U) [Mass/Vol] Negative Normal Negative [facility] Comment on above: Order Comment: Speci men Type: URINE SPECIMENOrdering Facility: [facility] Address: [address] [place] [address] Performed By: #### 2 4356-8 ####[facility] LABCLIA [id number] [place] [address] [place] Hemoglobin Ql (U) Negative Normal Negative [facility] Comment on above: Order Comment: Speci men Type: URINE SPECIMENOrdering Facility: [facility] Address: [address] [place] [address] Performed By: #### 2 4356-8 ####[facility] LABCLIA [id number] [place] [address] [place] Hyaline casts (Urine sed) [#/Area] 0 /[LPF] Normal 0 /LPF [facility] Comment on above: Order Comment: Speci men Type: URINE SPECIMENOrdering Facility: [facility] Address: [address] [place] [address] Performed By: #### 2 4356-8 ####[facility] LABCLIA [id number] [place] [address] [place] Ketones Ql (U) Negative Normal Negative [facility] Comment on above: Order Comment: Speci men Type: URINE SPECIMENOrdering Facility: [facility] Address: [address] [place] [address] Performed By: #### 2 4356-8 ####[facility] LABCLIA [id number] [place] [address] [place] Leukocyte esterase Test strip Ql (U) Negative Normal Negative [facility] Comment on above: Order Comment: Speci men Type: URINE SPECIMENOrdering Facility: [facility] Address: [address] [place] [address] Performed By: #### 2 4356-8 ####[facility] LABCLIA [id number] [place] [address] [place] Nitrite Ql (U) Negative Normal Negative [facility] Comment on above: Order Comment: Speci men Type: URINE SPECIMENOrdering Facility: [facility] Address: [address] [place] [address] Performed By: #### 2 4356-8 ####[facility] LABCLIA [id number] [place] [address] [place] pH (U) 7.0 [pH] Normal <8.5 [facility] Comment on above: Order Comment: Speci men Type: URINE SPECIMENOrdering Facility: [facility] Address: [address] [place] [address] Performed By: #### 2 4356-8 ####[facility] LABIA [id number] [place] [address] [place] Protein (U) [Mass/Vol] Negative Normal Negative [facility] Comment on above: Order Comment: Speci men Type: URINE SPECIMENOrdering Facility: [facility] Address: [address] [place] [address] Performed By: #### 2 4356-8 ####[facility] LABIA [id number] [place] [address] [place] RBC LM.HPF (Urine sed) [#/Area] 0-2 /HPF Normal 0-2 /HPF [facility] Comment on above: Order Comment: Speci men Type: URINE SPECIMENOrdering Facility: [facility] Address: [address] [place] [address] Performed By: #### 2 4356-8 ####[facility] [id number] [place] [address] [place] Specific gravity (U) [Rel density] 1.007 Normal 1.005-1.030 [facility] Comment on above: Order Comment: Speci men Type: URINE SPECIMENOrdering Facility: [facility] Address: [address] [place] [address] Performed By: #### 2 4356-8 ####[facility] LABIA [id number] [place] [address] [place] Urobilinogen Ql (U) 0.2 EU/dL Normal 0.2-1.0 EU/dL [facility] Comment on above: Order Comment: Speci men Type: URINE SPECIMENOrdering Facility: [facility] Address: [address] [place] [address] Performed By: #### 2 4356-8 ####[facility] LABCLIA [id number] [place] [address] [place] WBC LM.HPF (Urine sed) [#/Area] 0-5 /HPF Normal 0-5 /HPF [facility] Comment on above: Order Comment: Speci men Type: URINE SPECIMENOrdering Facility: [facility] Address: [address] [place] [address] Performed By: #### 2 4356-8 ####[facility] LABIA [id number] [place] [address] [place] XR LUMBAR 3V AP/LAT/L5-S1on 09-07-2023 XR LUMBAR 3V AP/LAT/L5-S1 Normal [facility] CNPNon 09-04-2023 CNPN Normal [facility] CNPNon 08-29-2023 CNPN Normal [facility] CNCOon 08-25-2023 CNCO Letter Text Normal [facility] Basic metabolic 2000 panelon 08-22-2023 Anion gap [Moles/Vol] 9 mmol/L Normal 8-15 [facility] Comment on above: Order Comment: Speci men Type: BLOOD SPECIMENOrdering Facility: [facility] Address: [address] [place] [address] Performed By: #### 2 4321-2 ####[facility] LABCLIA [id number] [place] [address] [place] Calcium [Mass/Vol] 9.4 mg/dL Normal 8.5-10.2 [facility] Comment on above: Order Comment: Speci men Type: BLOOD SPECIMENOrdering Facility: [facility] Address: [address] [place], [place] [address] Performed By: #### 2 4321-2 ####[facility] LABCLIA [id number] [place] [address] [place] Chloride [Moles/Vol] 103 mmol/L Normal 98-107 [facility] Comment on above: Order Comment: Speci men Type: BLOOD SPECIMENOrdering Facility: [facility] Address: [address] [place] [address] Performed By: #### 2 4321-2 ####[facility] LABCLIA [id number] [place] [id number] [place] CO2 [Moles/Vol] 26 mmol/L Normal 22-30 [facility] Comment on above: Order Comment: Speci men Type: BLOOD SPECIMENOrdering Facility: [facility] Address: [address] [place] [address] Performed By: #### 2 4321-2 ####[facility] LABCLIA [id number] [address] STATES OF [facility] Creatinine [Mass/Vol] 0.77 mg/dL Normal 0.73-1.22 [facility] Comment on above: Order Comment: Speci men Type: BLOOD SPECIMENOrdering Facility: [facility] Address: [address] [place] [address] Performed By: #### 2 4321-2 ####[facility] LABCLIA [id number] [address] OF [facility] Creatinine and Glomerular filtration rate.predicted panel (S/P/Bld) 99 mL/min/1.73m??? Normal >=60 [facility] Comment on above: Order Comment: Speci men Type: BLOOD SPECIMENOrdering Facility: [facility] Address: [address] [place] [address] Result Comment: Yesica mated Glomerular Filtration Rate [...] actual GFR. Performed By: #### 2 4321-2 ####[facility] LABCLIA [id number] [place] [address] [place] Glucose [Mass/Vol] 112 mg/dL High 74-99 [facility] Comment on above: Order Comment: Speci men Type: BLOOD SPECIMENOrdering Facility: [facility] Address: [address] [place] [address] Result Comment: The [place] [employer] (ADA) provides guidance for cutoff [...] Standards of Medical Care in Diabetes 2016, [place] [employer]. Diabetes Care. 2016.39(Suppl 1). Performed By: #### 2 4321-2 ####[facility] LABCLIA [id number] [place] [address] [place] Potassium [Moles/Vol] 5.1 mmol/L Normal 3.7-5.1 [facility] Comment on above: Order Comment: Speci men Type: BLOOD SPECIMENOrdering Facility: [facility] Address: [address] [place] [address] Performed By: #### 2 4321-2 ####[facility] LABIA [id number] [place] [address] [place] Sodium [Moles/Vol] 138 mmol/L Normal 136-144 [facility] Comment on above: Order Comment: Speci men Type: BLOOD SPECIMENOrdering Facility: [facility] Address: [address] [place] [address] Performed By: #### 2 4321-2 ####[facility] LABIA [id number] [place] [address] [place] Urea nitrogen [Mass/Vol] 16 mg/dL Normal 9-24 [facility] Comment on above: Order Comment: Speci men Type: BLOOD SPECIMENOrdering Facility: [facility] Address: [address] [place] [address] Performed By: #### 2 4321-2 ####[facility] LABCLIA [id number] [place] [address] [place] CBC panel Auto (Bld)on 08-21 Erythrocyte distribution width (RBC) [Ratio] 13.2 % Normal 11.5-15.0 [facility] Comment on above: Order Comment: Speci men Type: BLOOD SPECIMENOrdering Facility: [facility] Address: [address] [place] [address] Performed By: #### 5 8410-2 ####[facility] LABCLIA [id number] [place] [address] [place] Hematocrit (Bld) [Volume fraction] 34.6 % Low 39.0-51.0 [facility] Comment on above: Order Comment: Speci men Type: BLOOD SPECIMENOrdering Facility: [facility] Address: [address] [place] [address] Performed By: #### 5 8410-2 ####[facility] LABCLIA [id number] [place] [address] [place] Hemoglobin (Bld) [Mass/Vol] 11.6 g/dL Low 13.0-17.0 [facility] Comment on above: Order Comment: Speci men Type: BLOOD SPECIMENOrdering Facility: [facility] Address: [address] [place] [address] Performed By: #### 5 8410-2 ####[facility] LABCLIA [id number] [place] [address] [place] MCH (RBC) [Entitic mass] 31.9 pg Normal 26.0-34.0 [facility] Comment on above: Order Comment: Speci men Type: BLOOD SPECIMENOrdering Facility: [facility] Address: [address] [place] [address] Performed By: #### 5 8410-2 ####[facility] LABCLIA [id number] [place] [address] [place] MCHC (RBC) [Mass/Vol] 33.5 g/dL Normal 30.5-36.0 [facility] Comment on above: Order Comment: Speci men Type: BLOOD SPECIMENOrdering Facility: [facility] Address: [address] [place] [address] Performed By: #### 5 8410-2 ####[facility] LABIA [id number] [place] [address] [place] MCV (RBC) [Entitic vol] 95.1 fL Normal 80.0-100.0 [facility] Comment on above: Order Comment: Speci men Type: BLOOD SPECIMENOrdering Facility: [facility] Address: [address] [place] [address] Performed By: #### 5 8410-2 ####[facility] LABIA [id number] [place] [address] [place] Nucleated RBC (Bld) [#/Vol] 10*3/uL Normal <0.01 [facility] Comment on above: Order Comment: Speci men Type: BLOOD SPECIMENOrdering Facility: [facility] Address: [address] [place] [address] Performed By: #### 5 8410-2 ####[facility] LABIA [id number] [place] [address] [place] Platelet mean volume (Bld) [Entitic vol] 9.7 fL Normal 9.0-12.7 [facility] Comment on above: Order Comment: Speci men Type: BLOOD SPECIMENOrdering Facility: [facility] Address: [address] [place] [address] Performed By: #### 5 8410-2 ####[facility] LABIA [id number] [address] [address] [place] Platelets (Bld) [#/Vol] 393 10*3/uL Normal 150-400 [facility] Comment on above: Order Comment: Speci men Type: BLOOD SPECIMENOrdering Facility: [facility] Address: [address] [place] [address] Performed By: #### 5 8410-2 ####[facility] LABIA [id number] [place] [address] [place] RBC (Bld) [#/Vol] 3.64 10*6/uL Low 4.20-6.[address] [facility] Comment on above: Order Comment: Speci men Type: BLOOD SPECIMENOrdering Facility: [facility] Address: [address] [place] [address] Performed By: #### 5 8410-2 ####[facility] [id number] [place] [address] [place] WBC (Bld) [#/Vol] 17.35 10*3/uL High 3.70-11.00 [facility] Comment on above: Order Comment: Speci men Type: BLOOD SPECIMENOrdering Facility: [facility] Address: [address] [place] [address] Performed By: #### 5 8410-2 ####[facility] [id number] [place] [id number] [place] CNDSon 08-22-2023 CNDS Normal [facility] THERAPY NTon 08-22-2023 THERAPY NT Normal [facility] Basic metabolic 2000 panelon 08-21-2023 Anion gap [Moles/Vol] 10 mmol/L Normal 8-15 [facility] Comment on above: Order Comment: Speci men Type: BLOOD SPECIMENOrdering Facility: [facility] Address: [address] [place] [address] Performed By: #### 2 4321-2 ####[facility] LABCLIA [id number] [place] [address] [place] Calcium [Mass/Vol] 9.5 mg/dL Normal 8.5-10.2 [facility] Comment on above: Order Comment: Speci men Type: BLOOD SPECIMENOrdering Facility: [facility] Address: [address] [place] [address] Performed By: #### 2 4321-2 ####[facility] LABCLIA [id number] [place] [address] [place] Chloride [Moles/Vol] 106 mmol/L Normal 98-107 [facility] Comment on above: Order Comment: Speci men Type: BLOOD SPECIMENOrdering Facility: [facility] Address: [address] [place] [address] Performed By: #### 2 4321-2 ####[facility] LABCLIA [id number] [place] [address] [place] CO2 [Moles/Vol] 22 mmol/L Normal 22-30 [facility] Comment on above: Order Comment: Speci men Type: BLOOD SPECIMENOrdering Facility: [facility] Address: [address] [place] [address] Performed By: #### 2 4321-2 ####[facility] LABCLIA [id number] [place] [address] [place] Creatinine [Mass/Vol] 0.84 mg/dL Normal 0.73-1.22 [facility] Comment on above: Order Comment: Speci men Type: BLOOD SPECIMENOrdering Facility: [facility] Address: [address] [place] [address] Performed By: #### 2 4321-2 ####[facility] LABCLIA [id number] [place] [address] [place] Creatinine and Glomerular filtration rate.predicted panel (S/P/Bld) 96 mL/min/1.73m??? Normal >=60 [facility] Comment on above: Order Comment: Roberto Carlos lion Type: BLOOD SPECIMENOrdering Facility: [facility] Address: [address] [place] [address] Result Comment: Yesica mated Glomerular Filtration Rate [...] actual GFR. Performed By: #### 2 4321-2 ####[facility] LABIA [id number] [place] [address] [place] Glucose [Mass/Vol] 140 mg/dL High 74-99 [facility] Comment on above: Order Comment: Roberto Carlos lino Type: BLOOD SPECIMENOrdering Facility: [facility] Address: [address] [place] [address] Result Comment: The [place] [employer] (ADA) provides guidance for cutoff [...] Standards of Medical Care in Diabetes 2016, [place] [employer]. Diabetes Care. 2016.39(Suppl 1). Performed By: #### 2 4321-2 ####[facility] LABIA [id number] [place] [address] [place] Potassium [Moles/Vol] 4.4 mmol/L Normal 3.7-5.1 [facility] Comment on above: Order Comment: Speci men Type: BLOOD SPECIMENOrdering Facility: [facility] Address: [address] [place] [address] Performed By: #### 2 4321-2 ####[facility] LABCLIA [id number] [address] [address] [place] Sodium [Moles/Vol] 138 mmol/L Normal 136-144 [facility] Comment on above: Order Comment: Speci men Type: BLOOD SPECIMENOrdering Facility: [facility] Address: [address] [place] [address] Performed By: #### 2 4321-2 ####[facility] LABCLIA [id number] [place] [address] [place] Urea nitrogen [Mass/Vol] 14 mg/dL Normal 9-24 [facility] Comment on above: Order Comment: Speci men Type: BLOOD SPECIMENOrdering Facility: [facility] Address: [address] [place] [address] Performed By: #### 2 4321-2 ####[facility] LABIA [id number] [place] [address] [place] CASE MANAGEMon 08-21-2023 CASE MANAGEM Normal [facility] CBC panel Auto (Bld)on 08-20 Erythrocyte distribution width (RBC) [Ratio] 13.1 % Normal 11.5-15.0 [facility] Comment on above: Order Comment: Speci men Type: BLOOD SPECIMENOrdering Facility: [facility] Address: [address] [place] [address] Performed By: #### 5 8410-2 ####[facility] LABCLIA [id number] [place] [address] [place] Hematocrit (Bld) [Volume fraction] 34.2 % Low 39.0-51.0 [facility] Comment on above: Order Comment: Speci men Type: BLOOD SPECIMENOrdering Facility: [facility] Address: [address] [place] [address] Performed By: #### 5 8410-2 ####[facility] LABIA [id number] [place] [address] [place] Hemoglobin (Bld) [Mass/Vol] 11.6 g/dL Low 13.0-17.0 [facility] Comment on above: Order Comment: Speci men Type: BLOOD SPECIMENOrdering Facility: [facility] Address: [address] [place] [address] Performed By: #### 5 8410-2 ####[facility] LABIA [id number] [place] [address] [place] MCH (RBC) [Entitic mass] 31.7 pg Normal 26.0-34.0 [facility] Comment on above: Order Comment: Speci men Type: BLOOD SPECIMENOrdering Facility: [facility] Address: [address] [place] [address] Performed By: #### 5 8410-2 ####[facility] LABIA [id number] [place] [address] [place] MCHC (RBC) [Mass/Vol] 33.9 g/dL Normal 30.5-36.0 [facility] Comment on above: Order Comment: Speci men Type: BLOOD SPECIMENOrdering Facility: [facility] Address: [address] [place] [address] Performed By: #### 5 8410-2 ####[facility] LABIA [id number] [place] [address] [place] MCV (RBC) [Entitic vol] 93.4 fL Normal 80.0-100.0 [facility] Comment on above: Order Comment: Speci men Type: BLOOD SPECIMENOrdering Facility: [facility] Address: [address] [place] [address] Performed By: #### 5 8410-2 ####[facility] LABIA [id number] [place] [address] [place] Nucleated RBC (Bld) [#/Vol] 10*3/uL Normal <0.01 [facility] Comment on above: Order Comment: Speci men Type: BLOOD SPECIMENOrdering Facility: [facility] Address: [address] [place] [address] Performed By: #### 5 8410-2 ####[facility] LABCLIA [id number] [place] [address] [place] Platelet mean volume (Bld) [Entitic vol] 9.3 fL Normal 9.0-12.7 [facility] Comment on above: Order Comment: Speci men Type: BLOOD SPECIMENOrdering Facility: [facility] Address: [address] [place] [address] Performed By: #### 5 8410-2 ####[facility] LABCLIA [id number] [place] [address] [place] Platelets (Bld) [#/Vol] 324 10*3/uL Normal 150-400 [facility] Comment on above: Order Comment: Speci men Type: BLOOD SPECIMENOrdering Facility: [facility] Address: [address] [place] [address] Performed By: #### 5 8410-2 ####[facility] LABCLIA [id number] [place] [address] [place] RBC (Bld) [#/Vol] 3.66 10*6/uL Low 4.20-6.[address] [facility] Comment on above: Order Comment: Speci men Type: BLOOD SPECIMENOrdering Facility: [facility] Address: [address] [place] [address] Performed By: #### 5 8410-2 ####[facility] LABCLIA [id number] [place] [address] [place] WBC (Bld) [#/Vol] 13.46 10*3/uL High 3.70-11.00 [facility] Comment on above: Order Comment: Speci men Type: BLOOD SPECIMENOrdering Facility: [facility] Address: [address] [place], [place] [address] Performed By: #### 5 8410-2 ####[facility] LABCLIA [id number] [address] [address] [place] THERAPY NTon 08-21-2023 THERAPY NT Normal [facility] THERAPY NT Normal [facility] THERAPY NT Normal [facility] XR LUMBAR 2V AP/LATon 2023 XR LUMBAR 2V AP/LAT Normal [facility] Basic metabolic 2000 panelon 08-20-2023 Anion gap [Moles/Vol] 11 mmol/L Normal 8-15 [facility] Comment on above: Order Comment: Speci men Type: BLOOD SPECIMENOrdering Facility: [facility] Address: [address] [place] [address] Performed By: #### 2 4321-2 ####[facility] LABCLIA [id number] [place] [address] [place] Calcium [Mass/Vol] 9.3 mg/dL Normal 8.5-10.2 [facility] Comment on above: Order Comment: Speci men Type: BLOOD SPECIMENOrdering Facility: [facility] Address: [address] [place] [address] Performed By: #### 2 4321-2 ####[facility] LABCLIA [id number] [place] [address] [place] Chloride [Moles/Vol] 105 mmol/L Normal 98-107 [facility] Comment on above: Order Comment: Speci men Type: BLOOD SPECIMENOrdering Facility: [facility] Address: [address] [place] [address] Performed By: #### 2 4321-2 ####[facility] LABCLIA [id number] [place] [address] [place] CO2 [Moles/Vol] 24 mmol/L Normal 22-30 [facility] Comment on above: Order Comment: Speci men Type: BLOOD SPECIMENOrdering Facility: [facility] Address: [address] [place] [address] Performed By: #### 2 4321-2 ####[facility] LABCLIA [id number] [place] [address] [place] Creatinine [Mass/Vol] 0.86 mg/dL Normal 0.73-1.22 [facility] Comment on above: Order Comment: Speci men Type: BLOOD SPECIMENOrdering Facility: [facility] Address: [address] [place] [address] Performed By: #### 2 4321-2 ####[facility] LABCLIA [id number] [place] [address] [place] Creatinine and Glomerular filtration rate.predicted panel (S/P/Bld) 95 mL/min/1.73m??? Normal >=60 [facility] Comment on above: Order Comment: Speci men Type: BLOOD SPECIMENOrdering Facility: [facility] Address: [address] [place] [address] Result Comment: Yesica mated Glomerular Filtration Rate [...] actual GFR. Performed By: #### 2 4321-2 ####[facility] LABIA [id number] [place] [address] [place] Glucose [Mass/Vol] 111 mg/dL High 74-99 [facility] Comment on above: Order Comment: Speci men Type: BLOOD SPECIMENOrdering Facility: [facility] Address: [address] [place] [address] Result Comment: The [place] [employer] (ADA) provides guidance for cutoff [...] Standards of Medical Care in Diabetes 2016, [place] [employer]. Diabetes Care. 2016.39(Suppl 1). Performed By: #### 2 4321-2 ####[facility] LABCLIA [id number] [place] [address] [place] Potassium [Moles/Vol] 4.0 mmol/L Normal 3.7-5.1 [facility] Comment on above: Order Comment: Speci men Type: BLOOD SPECIMENOrdering Facility: [facility] Address: [address] [place] [address] Performed By: #### 2 4321-2 ####[facility] LABIA [id number] [place] [address] [place] Sodium [Moles/Vol] 140 mmol/L Normal 136-144 [facility] Comment on above: Order Comment: Speci men Type: BLOOD SPECIMENOrdering Facility: [facility] Address: [address] [place] [address] Performed By: #### 2 4321-2 ####[facility] LABCLIA [id number] [place] [address] [place] Urea nitrogen [Mass/Vol] 10 mg/dL Normal 9-24 [facility] Comment on above: Order Comment: Speci men Type: BLOOD SPECIMENOrdering Facility: [facility] Address: [address] [place] [address] Performed By: #### 2 4321-2 ####[facility] LABCLIA [id number] [place] [address] [place] CBC panel Auto (Bld)on 08-19 Erythrocyte distribution width (RBC) [Ratio] 13.2 % Normal 11.5-15.0 [facility] Comment on above: Order Comment: Speci men Type: BLOOD SPECIMENOrdering Facility: [facility] Address: [address] [place] [address] Performed By: #### 5 8410-2 ####[facility] LABCLIA [id number] [address] [place] Hematocrit (Bld) [Volume fraction] 39.0 % Normal 39.0-51.0 [facility] Comment on above: Order Comment: Speci men Type: BLOOD SPECIMENOrdering Facility: [facility] Address: [address] [place] [address] Performed By: #### 5 8410-2 ####[facility] LABCLIA [id number] [address] [place] Hemoglobin (Bld) [Mass/Vol] 12.9 g/dL Low 13.0-17.0 [facility] Comment on above: Order Comment: Speci men Type: BLOOD SPECIMENOrdering Facility: [facility] Address: [address] [place] [address] Performed By: #### 5 8410-2 ####[facility] LABIA [id number] [place] [address] [place] MCH (RBC) [Entitic mass] 32.4 pg Normal 26.0-34.0 [facility] Comment on above: Order Comment: Speci men Type: BLOOD SPECIMENOrdering Facility: [facility] Address: [address] [place] [address] Performed By: #### 5 8410-2 ####[facility] LABCLIA [id number] [place] [address] [place] MCHC (RBC) [Mass/Vol] 33.1 g/dL Normal 30.5-36.0 [facility] Comment on above: Order Comment: Speci men Type: BLOOD SPECIMENOrdering Facility: [facility] Address: [address] [place] [address] Performed By: #### 5 8410-2 ####[facility] [id number] [address] [address] [place] MCV (RBC) [Entitic vol] 98.0 fL Normal 80.0-100.0 [facility] Comment on above: Order Comment: Speci men Type: BLOOD SPECIMENOrdering Facility: [facility] Address: [address] [place] [address] Performed By: #### 5 8410-2 ####[facility] LABS[facility] [id number] [place] [address] [place] Nucleated RBC (Bld) [#/Vol] 10*3/uL Normal <0.01 [facility] Comment on above: Order Comment: Speci men Type: BLOOD SPECIMENOrdering Facility: [facility] Address: [address] [place] [address] Performed By: #### 5 8410-2 ####[facility] LABS[facility] [id number] [place] [address] [place] Platelet mean volume (Bld) [Entitic vol] 9.7 fL Normal 9.0-12.7 [facility] Comment on above: Order Comment: Speci men Type: BLOOD SPECIMENOrdering Facility: [facility] Address: [address] [place] [address] Performed By: #### 5 8410-2 ####[facility] LABIA [id number] [place] [address] [place] Platelets (Bld) [#/Vol] 389 10*3/uL Normal 150-400 [facility] Comment on above: Order Comment: Speci men Type: BLOOD SPECIMENOrdering Facility: [facility] Address: [address] [place] [address] Performed By: #### 5 8410-2 ####[facility] LABCLIA [id number] [address] [address] [place] RBC (Bld) [#/Vol] 3.98 10*6/uL Low 4.20-6.[address] [facility] Comment on above: Order Comment: Speci men Type: BLOOD SPECIMENOrdering Facility: [facility] Address: [address] [place], [place] [address] Performed By: #### 5 8410-2 ####[facility] LABCLIA [id number] [place] [address] [place] WBC (Bld) [#/Vol] 11.15 10*3/uL High 3.70-11.00 [facility] Comment on above: Order Comment: Speci men Type: BLOOD SPECIMENOrdering Facility: [facility] Address: [address] [place], [place] [address] Performed By: #### 5 8410-2 ####[facility] LABCLIA [id number] [place] [id number] [place] LUMBAR SPINE WO IVCONon 0 08-20-2023 CT LUMBAR SPINE WO IVCON Normal [facility] MRI LUMBAR SPINE WO IVCONon 08-20-2023 MRI LUMBAR SPINE WO IVCON Normal [facility] THERAPY NTon 08-20-2023 THERAPY NT Normal [facility] THERAPY NT Normal [facility] ANES POSTPROC EVALon 024 ANES POSTPROC EVAL Normal [facility] ANES PRE-OPon 08-19-2023 ANES PRE-OP Normal [facility] BRIEF OP NOTon 08-19-2023 BRIEF OP NOT Normal [facility] NURSING PROGon 08-19-2023 NURSING PROG Normal [facility] NURSING PROG Normal [facility] OPERATIVE NOon 08-19-2023 OPERATIVE NO Normal [facility] XR LUMBAR 2V AP/LATon 2023 XR LUMBAR 2V AP/LAT Normal [facility] XR LUMBAR 2V AP/LAT Normal [facility] XR LUMBAR 2V AP/LAT Normal [facility] CNPNon 08-11-2023 CNPN Normal [facility] Basic metabolic 2000 panelon 08-06-2023 Anion gap [Moles/Vol] 13 mmol/L 9 - 18 mmol/L [facility] Calcium [Mass/Vol] 9.2 mg/dL 8.5 - 10. 2 mg/dL [facility] Chloride [Moles/Vol] 100 mmol/L 97 - 10 5 mmol/L [facility] CO2 [Moles/Vol] 24 mmol/L 22 - 30 mmol/L [facility] Creatinine [Mass/Vol] 1.00 mg/dL 0.73 - 1.22 mg/dL [facility] GFR/1.73 sq M.predicted among non-blacks MDRD (S/P/Bld) [Vol rate/Area] 83 mL/min/{1.73_m2} - PINF [facility] Comment on above: Estimated Glomerular Filtration Rate [...] 100 mg/dL High 74 - 99 mg/dL [facility] Comment on above: The [place] [employer] Association (ADA) provides guidance for [...] Standards of Medical Care in Diabetes 2016, [place] [employer]. Diabetes Care. 2016.39(Suppl 1). Interpretation and review of laboratory results Abnormal [facility] Potassium [Moles/Vol] 4.1 mmol/L 3.7 - 5.1 mmol/L [facility] Sodium [Moles/Vol] 137 mmol/L 136 - 144 mmol/L [facility] Urea nitrogen [Mass/Vol] 23 mg/dL 9 - 24 mg/dL [facility] Anion gap [Moles/Vol] 13 mmol/L Normal 9-18 [facility] Comment on above: Order Comment: Speci men Type: BLOOD SPECIMEN [facility] Address: [address] [place] [address] Performed By: #### 2 4321-2, 2276-4, 83033-3 #### [facility] CLIA [id number] [address] [place] [address] [place] Calcium [Mass/Vol] 9.2 mg/dL Normal 8.5-10.2 [facility] Comment on above: Order Comment: Speci men Type: BLOOD SPECIMEN [facility] Facility: [facility] Address: [address] [place] [address] Performed By: #### 2 4321-2, 2276-4, 64511-0 #### [facility] CLIA [id number] [address] [place] [address] [place] Chloride [Moles/Vol] 100 mmol/L Normal 97-105 [facility] Comment on above: Order Comment: Speci men Type: BLOOD SPECIMEN [facility] Address: [address] [place] [address] Performed By: #### 2 4321-2, 2276-4, 15256-3 #### [facility] CLIA [id number] [address] [place] [address] [place] CO2 [Moles/Vol] 24 mmol/L Normal 22-30 [facility] Comment on above: Order Comment: Speci men Type: BLOOD SPECIMEN [facility] Address: [address] [place] [address] Performed By: #### 2 4321-2, 2276-4, 87162-5 #### [facility] CLIA [id number] [address] [place] [address] [place] Creatinine [Mass/Vol] 1.00 mg/dL Normal 0.73-1.22 [facility] Comment on above: Order Comment: Roberto Carlos lion Type: BLOOD SPECIMEN [facility] Address: [address] [place] [id number] Performed By: #### 2 4321-2, 2276-4, 61217-8 #### [facility] CLIA [id number] [address] [place] [address] [place] Creatinine and Glomerular filtration rate.predicted panel (S/P/Bld) 83 mL/min/1.73m??? Normal >=60 [facility] Comment on above: Order Comment: Roberto Carlos lion Type: BLOOD SPECIMEN Ordering Facility: [facility] Address: [address] [place] [address] Result Comment: Yesica mated Glomerular Filtration Rate [...] GFR. Performed By: #### 2 4321-2, 2276-4, 53146-1 #### [facility] CLIA [id number] [address] [place] [address] [place] Glucose [Mass/Vol] 100 mg/dL High 74-99 [facility] Comment on above: Order Comment: Roberto Carlos lion Type: BLOOD SPECIMEN Ordering Facility: [facility] Address: [address] [place] [address] Result Comment: The [place] [employer] (ADA) provides guidance for cutoff [...] Standards of Medical Care in Diabetes 2016, [place] [employer]. Diabetes Care. 2016.39(Suppl 1). Performed By: #### 2 4321-2, 6-4, 20525-9 #### [facility] CLIA [id number] [address] [place] [address] [place] Potassium [Moles/Vol] 4.1 mmol/L Normal 3.7-5.1 [facility] Comment on above: Order Comment: Speci men Type: BLOOD SPECIMEN Ordering Facility: [facility] Address: [address] [place] [address] Performed By: #### 2 4321-2, 6-4, 06036-6 #### [facility] CLIA [id number] [address] [place] [address] [place] Sodium [Moles/Vol] 137 mmol/L Normal 136-144 [facility] Comment on above: Order Comment: Speci men Type: BLOOD SPECIMEN Ordering Facility: [facility] Address: [address] [place], [place] [address] Performed By: #### 2 4321-2, 6-4, 53066-4 #### [facility] CLIA [id number] [address] [place] [address] [place] Urea nitrogen [Mass/Vol] 23 mg/dL Normal 9-24 [facility] Comment on above: Order Comment: Speci men Type: BLOOD SPECIMEN Ordering Facility: [facility] Address: [address] [place], [place] [address] Performed By: #### 2 4321-2, 6-4, 31763-1 #### [facility] CLIA [id number] [address] [place] [address] [place] CBC W Auto Differential pane l (Bld)on 08-06-2023 Basophils (Bld) [#/Vol] 0.08 10*3/uL Normal <0.11 [facility] Comment on above: Order Comment: Speci men Type: BLOOD SPECIMEN Ordering Facility: [facility] Address: [address] [place] [address] Performed By: #### 5 7021-8 #### [facility] CLIA [id number] [address] [place] [address] [place] Basophils/100 WBC (Bld) 0.9 % Normal [facility] Comment on above: Order Comment: Speci men Type: BLOOD SPECIMEN Ordering Facility: [facility] Address: [address] [place] [address] Performed By: #### 5 7021-8 #### [facility] CLIA [id number] [address] [place] [address] [place] Differential cell count method Nom (Bld) Auto Normal [facility] Comment on above: Order Comment: Speci men Type: BLOOD SPECIMEN Ordering Facility: [facility] Address: [address] [place] [address] Performed By: #### 5 7021-8 #### [facility] IA [id number] [address] [place] [address] [place] Eosinophils (Bld) [#/Vol] 0.43 10*3/uL Normal <0.46 [facility] Comment on above: Order Comment: Speci men Type: BLOOD SPECIMEN Ordering Facility: [facility] Address: [address] [place] [address] Performed By: #### 5 7021-8 #### [facility] IA [id number] [address] [place] [address] [place] Eosinophils/100 WBC (Bld) 4.6 % Normal [facility] Comment on above: Order Comment: Speci men Type: BLOOD SPECIMEN Ordering Facility: [facility] Address: [address] [place] [address] Performed By: #### 5 7021-8 #### [facility] CLIA [id number] [address] [place] [address] [place] Erythrocyte distribution width (RBC) [Ratio] 12.7 % Normal 11.5-15.0 [facility] Comment on above: Order Comment: Speci men Type: BLOOD SPECIMEN Ordering Facility: [facility] Address: [address] [place] [address] Performed By: #### 5 7021-8 #### [facility] IA [id number] [address] [place] [address] [place] Hematocrit (Bld) [Volume fraction] 46.3 % Normal 39.0-51.0 [facility] Comment on above: Order Comment: Speci men Type: BLOOD SPECIMEN Ordering Facility: [facility] Address: [address] [place] [address] Performed By: #### 5 7021-8 #### [facility] IA [id number] [address] [place] [address] [place] Hemoglobin (Bld) [Mass/Vol] 15.1 g/dL Normal 13.0-17.0 [facility] Comment on above: Order Comment: Speci men Type: BLOOD SPECIMEN Ordering Facility: [facility] Address: [address] [place] [address] Performed By: #### 5 7021-8 #### [facility] IA [id number] [address] [place] [address] [place] Immature granulocytes (Bld) [#/Vol] 0.21 10*3/uL High <0.10 [facility] Comment on above: Order Comment: Speci men Type: BLOOD SPECIMEN Ordering Facility: [facility] Address: [address] [place] [address] Performed By: #### 5 7021-8 #### [facility] IA [id number] [address] [place] [address] [place] Immature granulocytes/100 WBC (Bld) 2.3 % Normal [facility] Comment on above: Order Comment: Speci men Type: BLOOD SPECIMEN Ordering Facility: [facility] Address: [address] [place] [address] Performed By: #### 5 7021-8 #### [facility] IA [id number] [address] [place] [address] [place] Lymphocytes (Bld) [#/Vol] 1.59 10*3/uL Normal 1.00-4.00 [facility] Comment on above: Order Comment: Speci men Type: BLOOD SPECIMEN Ordering Facility: [facility] Address: [address] [place] [address] Performed By: #### 5 7021-8 #### [facility] CLIA [id number] [address] [place] Lymphocytes/100 WBC (Bld) 17.2 % Normal [facility] Comment on above: Order Comment: Speci men Type: BLOOD SPECIMEN Ordering Facility: [facility] Address: [address] [place] [address] Performed By: #### 5 7021-8 #### [facility] CLIA [id number] [address] [place] [address] [place] MCH (RBC) [Entitic mass] 31.9 pg Normal 26.0-34.0 [facility] Comment on above: Order Comment: Speci men Type: BLOOD SPECIMEN Ordering Facility: [facility] Address: [address] [place] [address] Performed By: #### 5 7021-8 #### [facility] CLIA [id number] [address] [place] [address] [place] MCHC (RBC) [Mass/Vol] 32.6 g/dL Normal 30.5-36.0 [facility] Comment on above: Order Comment: Speci men Type: BLOOD SPECIMEN Ordering Facility: [facility] Address: [address] [place] [address] Performed By: #### 5 7021-8 #### [facility] CLIA [id number] [address] [place] [address] [place] MCV (RBC) [Entitic vol] 97.9 fL Normal 80.0-100.0 [facility] Comment on above: Order Comment: Speci men Type: BLOOD SPECIMEN Ordering Facility: [facility] Address: [address] [place] [address] Performed By: #### 5 7021-8 #### [facility] CLIA [id number] [address] [place] [address] [place] Monocytes (Bld) [#/Vol] 1.13 10*3/uL High <0.87 [facility] Comment on above: Order Comment: Speci men Type: BLOOD SPECIMEN Ordering Facility: [facility] Address: [address] [place] [address] Performed By: #### 5 7021-8 #### [facility] CLIA [id number] [address] [place] [address] [place] Monocytes/100 WBC (Bld) 12.2 % Normal [facility] Comment on above: Order Comment: Speci men Type: BLOOD SPECIMEN Ordering Facility: [facility] Address: [address] [place] [address] Performed By: #### 5 7021-8 #### [facility] CLIA [id number] [address] [place] [address] [place] Neutrophils (Bld) [#/Vol] 5.82 10*3/uL Normal 1.45-7.50 [facility] Comment on above: Order Comment: Speci men Type: BLOOD SPECIMEN Ordering Facility: [facility] Address: [address] [place] [address] Performed By: #### 5 7021-8 #### [facility] CLIA [id number] [address] [place] [address] [place] Neutrophils/100 WBC (Bld) 62.8 % Normal [facility] Comment on above: Order Comment: Speci men Type: BLOOD SPECIMEN Ordering Facility: [facility] Address: [address] [place] [address] Performed By: #### 5 7021-8 #### [facility] CLIA [id number] [address] [place] [address] [place] Nucleated RBC (Bld) [#/Vol] 10*3/uL Normal <0.01 [facility] Comment on above: Order Comment: Speci men Type: BLOOD SPECIMEN Ordering Facility: [facility] Address: [address] [place] [address] Performed By: #### 5 7021-8 #### [facility] IA [id number] [address] [place] [address] [place] Nucleated RBC/100 WBC (Bld) [Ratio] 0.0 /100 WBC Normal [facility] Comment on above: Order Comment: Speci men Type: BLOOD SPECIMEN Ordering Facility: [facility] Address: [address] [place] [address] Performed By: #### 5 7021-8 #### [facility] IA [id number] [address] [place] [address] [place] Platelet mean volume (Bld) [Entitic vol] 9.6 fL Normal 9.0-12.7 [facility] Comment on above: Order Comment: Speci men Type: BLOOD SPECIMEN Ordering Facility: [facility] Address: [address] [place] [address] Performed By: #### 5 7021-8 #### [facility] IA [id number] [address] [place] [address] [place] Platelets (Bld) [#/Vol] 270 10*3/uL Normal 150-400 [facility] Comment on above: Order Comment: Speci men Type: BLOOD SPECIMEN Ordering Facility: [facility] Address: [address] [place] [address] Performed By: #### 5 7021-8 #### [facility] IA [id number] [address] [place] [address] [place] RBC (Bld) [#/Vol] 4.73 10*6/uL Normal 4.20-6.00 [facility] Comment on above: Order Comment: Speci men Type: BLOOD SPECIMEN Ordering Facility: [facility] Address: [address] [place] [address] Performed By: #### 5 7021-8 #### [facility] IA [id number] [address] [place] [address] [place] WBC (Bld) [#/Vol] 9.26 10*3/uL Normal 3.70-11.00 [facility] Comment on above: Order Comment: Speci men Type: BLOOD SPECIMEN Ordering Facility: [facility] Address: [address] [place] [address] Performed By: #### 5 7021-8 #### [facility] CLIA [id number] [address] [place] [address] [facility] BLOOD TYPEon 024 ABO O Normal [facility] Comment on above: Order Comment: Speci men Type: BLOOD SPECIMEN Ordering Facility: [facility] Address: [address] [place] [address] Performed By: #### C ONABO #### [facility] CLIA [id number] [address] [place] [address] [place] Rh Nom (Bld) Negative Normal [facility] Comment on above: Order Comment: Speci men Type: BLOOD SPECIMEN Ordering Facility: [facility] Address: [address] [place] [address] Performed By: #### C ONABO #### [facility] CLIA [id number] [address] [place] [address] [place] Performed By: #### T SCR30 #### [facility] CLIA [id number] [address] [place] [address] [place] ECG COMPLETEon 08-06-2023 ECG COMPLETE Ventricular Rate : 5 5 BPM Atrial Rate : 55 BPM P-R Interval : 132 ms QRS Duration : 96 ms Q-T Interval : 420 ms QTC Calculation(Bazett) : 401 ms Calculated P Wellton : 57 degrees Calculated R [place] : 63 degrees Calculated T [place] : 73 degrees Sinus bradycardia Possible Left atrial enlargement Borderline ECG Confirmed by LEX ACUNA DO ([id number]) on 08/18/2023 10:08:16 AM NAME : BRADEN RODRIGUEZ PID : [id number] : 1955 Gender : Male Race : ORD : [id number] Procedure Date : Aug 06 2023 08:48:24 [...] KATHERINE KEITH Acquired by : dm, Normal [facility] Ferritin SerPl-mCncon 2023 Ferritin [Mass/Vol] 322.8 ng/mL Normal 30.3-565.7 [facility] Comment on above: Order Comment: Speci men Type: BLOOD SPECIMEN Ordering Facility: [facility] Address: [address] [place] [address] Performed By: #### 2 4321-2, 2276-4, 82412-7 #### [facility] CLIA [id number] [address] [facility] [place] [address] [place] HISTORY PHYSICALon HISTORY PHYSICAL HNO ID: [id number] Author: SANAM GILL PA-C Service: ? Author Type: Physician Curriculum Coordinator Type: H&P Filed: 08/06/2023 12:03 Note Text: [...] over the last year. Relieving factors include [employer] and steroids. Aggravating factors include repetitive movement. [...] vaccine, a (more content not included)... Normal [facility] Iron and Iron binding capaci [facility] 08-06-2023 Iron [Mass/Vol] 99 ug/dL Normal 41-186 [facility] Comment on above: Order Comment: Specmartha lion Type: BLOOD SPECIMEN Ordering Facility: [facility] Address: [address] [place] [address] Performed By: #### 2 4321-2, 6-4, 37165-3 #### [facility] CLIA [id number] [address] [place] [address] [place] Iron binding capacity [Mass/Vol] 252 ug/dL Normal 232-386 [facility] Comment on above: Order Comment: Speci men Type: BLOOD SPECIMEN Ordering Facility: [facility] Address: [address] [place] [address] Performed By: #### 2 4321-2, 6-4, 45326-1 #### [facility] CLIA [id number] [address] [place] [address] [place] Iron/TIBC [Molar ratio] 39.3 % Normal 15.0-57.0 [facility] Comment on above: Order Comment: Speci men Type: BLOOD SPECIMEN Ordering Facility: [facility] Address: [address] [place] [address] Performed By: #### 2 4321-2, 2276-4, 54820-3 #### [facility] CLIA [id number] [address] [place] [address] [facility] [place] Laboratory - Blood bankon ABO group Nom (Bld) O [facility] No Panel Informationon 08-05 [facility] STAPHYLOCOCCUS AUREUS AND MR SA SCREEN, PCR, NASALon 08-06-2023 S. aureus and MRSA panel BARBARA+probe (Nose) Not detected Normal Not Detected [facility] Comment on above: Order Comment: Speci men Type: SWAB Ordering Facility: [facility] Address: [address] [place] [address] Performed By: #### S APCR #### [facility] CLIA [id number] [address] [place] [address] [place] TYPE AND SCREEN,30 DAYon Blood group antibody screen Ql Negative [facility] ABO O Normal [facility] Comment on above: Order Comment: Speci men Type: BLOOD SPECIMEN Ordering Facility: [facility] Address: [address] [place] [address] Performed By: #### T SCR30 #### [facility] CLIA [id number] [address] [place] [address] [place] HIstorical Ab Scr Status Negative Normal [facility] Comment on above: Order Comment: Speci men Type: BLOOD SPECIMEN Ordering Facility: [facility] Address: [address] [place] [address] Performed By: #### T SCR30 #### [facility] CLIA [id number] [address] [place] [address] [place] CNPNon 08-01-2023 CNPN Normal [facility] CT LUMBAR SPINE WO IVCONon 0 05-04-2023 CT LUMBAR SPINE WO IVCON * * *Final Report* * * DATE OF EXAM: May 04 2023 8:14AM [facility] 0508 - CT LUMBAR SPINE [...] caudal rib-bearing vertebra is counted as T12. Manager Gallery (topogram) images: No significant additional findings Alignment: [...] crest and there are 5 lumbar-type vertebrae. Wireless Network Engineer: PSCB Transcribe Date/Time: May 04 2023 9:20A Dictated by : CLAIRE LAZAR MD This examination was interpreted and the report reviewed and electronically signed by: CLAIRE LAZAR MD on May 04 2023 9:32AM EST [id number] Normal [facility] CT Lumbar spine WO contrasto n 05-04-2023 [facility] XR Lumbar spine Views W flex ion and W extensionon 04-30-2023 [facility] XR Thoracic and lumbar spine Views for scoliosis W standingon 04-30-2023 [facility] Creatinine (Bld) [Mass/Vol]O rdered By: Shae Kahlil on 10-28-2022 Creatinine [Mass/Vol] 1.0 mg/dL 0.6-1.3 [facility] Comment on above: ER/ESD physician [...] WILTON NICHOLE Date: 2022-04-12 08:12 Normal [facility] CREATININEon 04-11-2022 Creatinine [Mass/Vol] 0.80 mg/dL Normal 0.70-1.30 [facility] Comment on above: Performed By: #### [facility] #### [facility] [address] [place] [address] Dr. Max Peck EGFR-AF [place]IZ[place] >60 Normal >=60 [facility] Comment on above: Performed By: #### P SASC, VITAD #### [facility] [address] [address] [address] Max Peck EGFR-NON AF [place] >60 Normal >=60 [facility] Comment on above: Performed By: #### P HUGO, VITAD #### [facility] [address] [address] [address] Max Peck XR ABD FLAT UP_PA [...] by: EDENILSON KNIGHT Date: 2022-03-16 10:42 Normal [facility] LIPID PROFILEon 03-06-2022 CHOL-HDL RATIO NORM SEE BELOW Normal [facility] Comment on above: Result Comment: 3.3 - 4.4 LOW RISK 4.4 - 7.1 AVERAGE RISK 7.1 - 11.0 MODERATE RISK >11.0 HIGH RISK Performed By: #### P HUGO, VITAD #### [facility] [address] [place] [address] Dr. Max Peck Cholesterol [Mass/Vol] 163 mg/dL Normal <=200 [facility] Comment on above: Performed By: #### P HUGO, VITAD #### [facility] [address] [address] [address] Max Peck Cholesterol in HDL [Mass/Vol] 50 mg/dL Normal 40-60 [facility] Comment on above: Performed By: #### P HUGO, VITAD #### [facility] [address] [place] [address] Dr. Max Peck Cholesterol in LDL [Mass/Vol] 100.0 mg/dL Normal [facility] Comment on above: Performed By: #### P HUGO, VITAD #### [facility] [address] [address] [address] Max Peck Cholesterol.total/Cho lesterol in HDL [Mass ratio] 3.3 {ratio} Normal [facility] Comment on above: Performed By: #### P SASC, VITAD #### [facility] [address] [place] [address] Dr. Max Peck HDL NORMAL > or = 60 mg/dl - LO W CARDIOVASCULAR RISK <40 mg/dl - HIGH CARDIOVASCULAR RISK Normal [facility] Comment on above: Performed By: #### P SASC, VITAD #### [facility] [address] [place] [address] Dr. Max Peck LDL CALC NORMAL SEE BELOW Normal [facility] Comment on above: Result Comment: <100 mg/dl OPTIMAL 100 - 129 mg/dl NEAR OR ABOVE OPTIMAL 130 - 159 mg/dl BORDERLINE HIGH 160 - 189 mg/dl HIGH >190 mg/dl VERY HIGH Performed By: #### P SASC, VITAD #### [facility] [address] [place] [address] Dr. Max Peck Triglyceride [Mass/Vol] 65 mg/dL Normal <=150 [facility] Comment on above: Performed By: #### P BILLYC, VITAD #### [facility] [address] [place] [address] Dr. Max Peck VLDL CALC 13.0 mg/dL Normal [facility] Comment on above: Performed By: #### P SASC, VITAD #### [facility] [address] [place] [address] Dr. Max Peck PROF 14(COMP METB)on 022 Albumin [Mass/Vol] 3.9 g/dL Normal 3.4-5.0 [facility] Comment on above: Performed By: #### P SASC, VITAD #### [facility] [address] [place] [address] Dr. Max Peck Albumin/Globulin [Mass ratio] 1.3 {ratio} Normal [facility] Comment on above: Performed By: #### P SASC, VITAD #### [facility] [address] [place] [address] Dr. Max Peck ALP [Catalytic activity/Vol] 79 U/L Normal 46-116 [facility] Comment on above: Performed By: #### P SASC, VITAD #### [facility] [address] [address] [address] Max Peck ALT [Catalytic activity/Vol] 24 U/L Normal 16-63 [facility] Comment on above: Performed By: #### P SASC, VITAD #### [facility] [address] [address] [address] Max Peck Anion gap [Moles/Vol] 12.3 mmol/L Normal [facility] Comment on above: Performed By: #### P SASC, VITAD #### [facility] [address] [place] [address] Dr. Max Peck AST [Catalytic activity/Vol] 25 U/L Normal 15-37 [facility] Comment on above: Performed By: #### P SASC, VITAD #### [facility] [address] [place] [address] Dr. Max Peck Bilirubin [Mass/Vol] 1.4 mg/dL Critically high 0.2-1.0 [facility] Comment on above: Performed By: #### P SASC, VITAD #### [facility] [address] [place] [address] Dr. Max Peck Calcium [Mass/Vol] 9.1 mg/dL Normal 8.5-10.1 [facility] Comment on above: Performed By: #### P SASC, VITAD #### [facility] [address] [place] [address] Dr. Max Peck Chloride [Moles/Vol] 100 mmol/L Normal 98-107 [facility] Comment on above: Performed By: #### P SASC, VITAD #### [facility] [address] [place] [address] Dr. Max Peck CO2 [Moles/Vol] 30.7 mmol/L Normal 21.0-32.0 [facility] Comment on above: Performed By: #### P SASC, VITAD #### [facility] [address] [address] [address] Max Peck Creatinine [Mass/Vol] 0.86 mg/dL Normal 0.70-1.30 [facility] Comment on above: Performed By: #### P SASC, VITAD #### [facility] [address] [address] [address] Max Peck EGFR-AF [place] 60 mL/min/1.73m2 Normal >=60 [facility] Comment on above: Performed By: #### P SASC, VITAD #### [facility] [address] [place] [address] Dr. Max Peck EGFR-NON AF [place] 60 mL/min/1.73m2 Normal >=60 [facility] Comment on above: Performed By: #### P SASC, VITAD #### [facility] [address] [place] [address] Dr. Max Peck Globulin (S) [Mass/Vol] 3.1 g/dL Normal [facility] Comment on above: Performed By: #### P SASC, VITAD #### [facility] [address] [place] [address] Dr. Max Peck Glucose [Mass/Vol] 102 mg/dL Normal 74-106 [facility] Comment on above: Performed By: #### P SASC, VITAD #### [facility] [address] [place] [address] Dr. Max Peck Potassium [Moles/Vol] 4.0 mmol/L Normal 3.5-5.1 [facility] Comment on above: Performed By: #### P SASC, VITAD #### [facility] [address] [place] [address] Dr. Max Peck Protein [Mass/Vol] 7.0 g/dL Normal 6.4-8.2 [facility] Comment on above: Performed By: #### P SASC, VITAD #### [facility] [address] [place] [address] Dr. Max Peck Sodium [Moles/Vol] 139 mmol/L Normal 136-145 [facility] Comment on above: Performed By: #### P SASC, VITAD #### [facility] [address] [address] [address] Max Peck Urea nitrogen [Mass/Vol] 10.0 mg/dL Normal 7.0-18.0 [facility] Comment on above: Performed By: #### P SASC, VITAD #### [facility] [address] [address] [address] Max Peck Urea nitrogen/Creatinine [Mass ratio] 11.6 mg/mg Normal [facility] Comment on above: Performed By: #### P SASC, VITAD #### [facility] [address] [address] [address] Max Peck XR CSPINE MIN 4 [...] WILTON NICHOLE Date: 2022-01-19 07:14 Normal [facility] HEPATITIS PANEL, ACUTEon HBsAg Screen Negative Normal Negative [facility] Comment on above: Performed By: #### P SASC, VITAD #### [facility] [address] [address] [address] Max Peck HCV AB <0.1 Normal 0.0-0.9 [facility] Comment on above: Performed By: #### P SASC, VITAD #### [facility] [address] [address] [address] Max Peck Hep A Ab, IgM Negative Normal Negative [facility] Comment on above: Performed By: #### P SASC, VITAD #### [facility] [address] [address] [address] Max Peck Hep B Core Ab, IgM Negative Normal Negative [facility] Comment on above: Performed By: #### P SASC, VITAD #### [facility] [address] [address] [address] Max Peck Interpretation: Comment Normal [facility] Comment on above: Result Comment: Nega tive Not infected with HCV, unless recent infection is suspected or other evidence exists to indicate HCV infection. Performed By: #### P SASC, VITAD #### [facility] [address] [place] [address] Dr. Max Peck INSULINon 12-29-2021 Insulin 15.1 uIU/mL Normal 2.6-24.9 [facility] Comment on above: Performed By: #### P SASC, VITAD #### [facility] [address] [place] [address] Dr. Max Peck TESTOSTERONE, TOTALon 2021 Testosterone [Mass/Vol] 766 ng/dL Normal 264-916 [facility] Comment on above: Result Comment: Adul t male reference interval is based on a population of healthy nonobese males (BMI <30) between 19 and 39 years old. yeni Espinal.al. JCEM 2017,102;[id number]. PMID: [id number]. Performed By: #### P SASC, VITAD #### [facility] [address] [place] [address] Dr. Max Peck CBC AUTO DIFFon 12-28-2021 BASO # 0.0 103/ul Normal 0.0-0.1 [facility] [facility] Comment on above: Performed By: #### P SASC, VITAD #### [facility] [address] [place] [address] Dr. Max Peck Basophils/100 WBC (Bld) 0.4 % Normal 0.2-2.0 [facility] Comment on above: Performed By: #### P SASC, VITAD #### [facility] [address] [place] [address] Dr. Max Peck EO # 0.0 103/ul Normal 0.0-0.7 [facility] Comment on above: Performed By: #### P SASC, VITAD #### [facility] [address] [place] [address] Dr. Max Peck Eosinophils/100 WBC (Bld) 0.3 % Critically low 0.9-7.0 [facility] Comment on above: Performed By: #### P SASC, VITAD #### [facility] [address] [place] [address] Dr. Max Peck Erythrocyte distribution width (RBC) [Ratio] 12.5 % Normal 11.0-15.0 [facility] Comment on above: Performed By: #### P SASC, VITAD #### [facility] [address] [place] [address] Dr. Max Peck Hematocrit (Bld) [Volume fraction] 41.5 % Critically low 42.0-54.0 [facility] Comment on above: Performed By: #### P SASC, VITAD #### [facility] [address] [place] [address] Dr. Max Peck Hemoglobin (Bld) [Mass/Vol] 14.0 g/dL Normal 14.0-18.0 [facility] Comment on above: Performed By: #### P SASC, VITAD #### [facility] [address] [place] [address] Dr. Max Peck IG # 0.09 10e3/ul Critically high 0.00-0.03 [facility] Comment on above: Performed By: #### P SASC, VITAD #### [facility] [address] [place] [address] Dr. Max Peck IG % 0.9 % Critically high 0.0-0.5 [facility] Comment on above: Performed By: #### P SASC, VITAD #### [facility] [address] [place] [address] Dr. Max Peck LYMPH # 2.6 103/ul Normal 1.2-3.8 [facility] Comment on above: Performed By: #### P SASC, VITAD #### [facility] [address] [place] [address] Dr. Max Peck Lymphocytes/100 WBC (Bld) 25.0 % Normal 20.5-60.0 [facility] Comment on above: Performed By: #### P SASC, VITAD #### [facility] [address] [place] [address] Dr. Max Peck MANUAL DIFF REQ NO Normal [facility] Comment on above: Performed By: #### P SASC, VITAD #### [facility] [address] [place] [address] Dr. Max Peck MCH (RBC) [Entitic mass] 32.6 pg Normal 25.9-34.0 [facility] Comment on above: Performed By: #### P SASC, VITAD #### [facility] [address] [place] [address] Dr. Max Peck MCHC (RBC) [Mass/Vol] 33.7 g/dL Normal 29.9-35.2 [facility] Comment on above: Performed By: #### P SASC, VITAD #### [facility] [address] [place] [address] Dr. Max Peck MCV (RBC) [Entitic vol] 96.7 fL Critically high 80.0-94.0 [facility] Comment on above: Performed By: #### P SASC, VITAD #### [facility] [address] [place] [address] Dr. Max Peck MONO # 1.2 103/ul Critically high 0.3-0.8 [facility] Comment on above: Performed By: #### P SASC, VITAD #### [facility] [address] [place] [address] Dr. Max Peck Monocytes/100 WBC (Bld) 11.1 % Normal 1.7-12.0 [facility] Comment on above: Performed By: #### P SASC, VITAD #### [facility] [address] [place] [address] Dr. Max Peck NEUT # 6.4 103/ul Normal 1.4-6.5 [facility] Comment on above: Performed By: #### P BILLYC, VITAD #### [facility] [address] [place] [address] Dr. Max Peck Neutrophils/100 WBC (Bld) 62.3 % Normal 43.0-75.0 [facility] Comment on above: Performed By: #### P SASC, VITAD #### [facility] [address] [place] [address] Dr. Max Peck Platelet mean volume (Bld) [Entitic vol] 9.6 fL Normal 9.5-13.5 [facility] Comment on above: Performed By: #### P SASC, VITAD #### [facility] [address] [place] [address] Dr. Max Peck PLT 323 103/ul Normal 150-450 [facility] Comment on above: Performed By: #### P BILLYC, VITAD #### [facility] [address] [place] [address] Dr. Max Peck RBC 4.29 106/ul Critically low 4.70-6.10 [facility] Comment on above: Performed By: #### P SASC, VITAD #### [facility] [address] [place] [address] Dr. Max Peck WBC 10.3 103/ul Normal 4.0-11.0 [facility] Comment on above: Performed By: #### P SASC, VITAD #### [facility] [address] [place] [address] Dr. Max Peck FREE THYROXINE INDEX T7on FTI 2.41 Normal 1.30-4.50 [facility] Comment on above: Performed By: #### T SH, URIC, T7, LIPID, CMP #### [facility] [address] [place] [address] Dr. Max Peck T3U 36.0 % Normal 33.0-40.0 [facility] Comment on above: Performed By: #### T SH, URIC, T7, LIPID, CMP #### [facility] [address] [address] [address] Max Peck T4 [Mass/Vol] 6.70 ug/dL Normal 4.50-12.10 [facility] Comment on above: Performed By: #### T SH, URIC, T7, LIPID, CMP #### [facility] [address] [address] [address] Max Peck GLYCOHEMOGLOBIN A1Con 2021 ADA RECOMMENDATION SEE BELOW Normal [facility] Comment on above: Result Comment: ADA RECOMMENDED LIMIT 4.0 - 6.0 ADA THERAPEUTIC TARGET < 7.0 ACTION SUGGESTED > 7.0 Performed By: #### P SASC, VITAD #### [facility] [address] [place] [address] Dr. Max Peck Glucose [Mass/Vol] 97 mg/dL Normal [facility] Comment on above: Performed By: #### P SASC, VITAD #### [facility] [address] [place] [address] Dr. Max Peck HbA1c (Bld) [Mass fraction] 5.0 % Normal 4.5-6.2 [facility] Comment on above: Performed By: #### P SASC, VITAD #### [facility] [address] [place] [address] Dr. Max Peck LIPID PROFILEon 12-28-2021 CHOL-HDL RATIO NORM SEE BELOW Normal [facility] Comment on above: Result Comment: 3.3 - 4.4 LOW RISK 4.4 - 7.1 AVERAGE RISK 7.1 - 11.0 MODERATE RISK >11.0 HIGH RISK Performed By: #### T SH, URIC, T7, LIPID, CMP #### [facility] [address] [place] [address] Dr. Max Peck Cholesterol [Mass/Vol] 221 mg/dL Critically high <=200 [facility] Comment on above: Performed By: #### T SH, URIC, T7, LIPID, CMP #### [facility] [address] [place] [address] Dr. Max Pcek Cholesterol in HDL [Mass/Vol] 41 mg/dL Normal 40-60 [facility] Comment on above: Performed By: #### T SH, URIC, T7, LIPID, CMP #### [facility] [address] [address] [address] Max Peck Cholesterol in LDL [Mass/Vol] 157.2 mg/dL Normal [facility] Comment on above: Performed By: #### T SH, URIC, T7, LIPID, CMP #### [facility] [address] [address] [address] Max Peck Cholesterol.total/Cho lesterol in HDL [Mass ratio] 5.4 {ratio} Normal [facility] Comment on above: Performed By: #### T SH, URIC, T7, LIPID, CMP #### [facility] [address] [place] [address] Dr. Max Peck HDL NORMAL > or = 60 mg/dl - LO W CARDIOVASCULAR RISK <40 mg/dl - HIGH CARDIOVASCULAR RISK Normal [facility] Comment on above: Performed By: #### T SH, URIC, T7, LIPID, CMP #### [facility] [address] [place] [address] Dr. Max Peck LDL CALC NORMAL SEE BELOW Normal [facility] Comment on above: Result Comment: <100 mg/dl OPTIMAL 100 - 129 mg/dl NEAR OR ABOVE OPTIMAL 130 - 159 mg/dl BORDERLINE HIGH 160 - 189 mg/dl HIGH >190 mg/dl VERY HIGH Performed By: #### T SH, URIC, T7, LIPID, CMP #### [facility] [address] [address] [address] Max Peck Triglyceride [Mass/Vol] 114 mg/dL Normal <=150 [facility] Comment on above: Performed By: #### T SH, URIC, T7, LIPID, CMP #### [facility] [address] [place] [address] Dr. Max Peck VLDL CALC 22.8 mg/dL Normal [facility] Comment on above: Performed By: #### T SH, URIC, T7, LIPID, CMP #### [facility] [address] [place] [address] Dr. Max Peck PROF 14(COMP METB)on 022 Albumin [Mass/Vol] 3.9 g/dL Normal 3.4-5.0 [facility] Comment on above: Performed By: #### T SH, URIC, T7, LIPID, CMP #### [facility] [address] [address] [address] Max Peck Albumin/Globulin [Mass ratio] 1.3 {ratio} Normal [facility] Comment on above: Performed By: #### T SH, URIC, T7, LIPID, CMP #### [facility] [address] [address] [address] Max Peck ALP [Catalytic activity/Vol] 63 U/L Normal 46-116 [facility] Comment on above: Performed By: #### T SH, URIC, T7, LIPID, CMP #### [facility] [address] [place] [address] Dr. Max Peck ALT [Catalytic activity/Vol] 75 U/L Critically high 16-63 [facility] Comment on above: Performed By: #### T SH, URIC, T7, LIPID, CMP #### [facility] [address] [address] [address] Max Peck Anion gap [Moles/Vol] 8.8 mmol/L Normal [facility] Comment on above: Performed By: #### T SH, URIC, T7, LIPID, CMP #### [facility] [address] [address] [address] Max Peck AST [Catalytic activity/Vol] 41 U/L Critically high 15-37 [facility] Comment on above: Performed By: #### T SH, URIC, T7, LIPID, CMP #### [facility] [address] [address] [address] Max Peck Bilirubin [Mass/Vol] 0.8 mg/dL Normal 0.2-1.0 [facility] Comment on above: Performed By: #### T SH, URIC, T7, LIPID, CMP #### [facility] [address] [address] [address] Max Peck Calcium [Mass/Vol] 9.1 mg/dL Normal 8.5-10.1 [facility] Comment on above: Performed By: #### T SH, URIC, T7, LIPID, CMP #### [facility] [address] [place] [address] Dr. Max Peck Chloride [Moles/Vol] 102 mmol/L Normal 98-107 [facility] Comment on above: Performed By: #### T SH, URIC, T7, LIPID, CMP #### [facility] [address] [address] [address] Max Peck CO2 [Moles/Vol] 33.8 mmol/L Critically high 21.0-32.0 [facility] Comment on above: Performed By: #### T SH, URIC, T7, LIPID, CMP #### [facility] [address] [place] [address] Dr. Max Peck Creatinine [Mass/Vol] 0.80 mg/dL Normal 0.70-1.30 [facility] Comment on above: Performed By: #### T SH, URIC, T7, LIPID, CMP #### [facility] [address] [place] [address] Dr. Max Peck EGFR-AF [place] >60 Normal >=60 [facility] Comment on above: Performed By: #### T SH, URIC, T7, LIPID, CMP #### [facility] [address] [place] [address] Dr. Max Peck EGFR-NON AF [place] >60 Normal >=60 [facility] Comment on above: Performed By: #### T SH, URIC, T7, LIPID, CMP #### [facility] [address] [place] [address] Dr. Max Peck Globulin (S) [Mass/Vol] 2.9 g/dL Normal [facility] Comment on above: Performed By: #### T SH, URIC, T7, LIPID, CMP #### [facility] [address] [place] [address] Dr. Max Peck Glucose [Mass/Vol] 99 mg/dL Normal 74-106 [facility] Comment on above: Performed By: #### T SH, URIC, T7, LIPID, CMP #### [facility] [address] [place] [address] Dr. Max Peck Potassium [Moles/Vol] 3.6 mmol/L Normal 3.5-5.1 [facility] Comment on above: Performed By: #### T SH, URIC, T7, LIPID, CMP #### [facility] [address] [place] [address] Dr. Max Peck Protein [Mass/Vol] 6.8 g/dL Normal 6.4-8.2 [facility] Comment on above: Performed By: #### T SH, URIC, T7, LIPID, CMP #### [facility] [address] [place] [address] Dr. Max Peck Sodium [Moles/Vol] 141 mmol/L Normal 136-145 [facility] Comment on above: Performed By: #### T SH, URIC, T7, LIPID, CMP #### [facility] [address] [place] [address] Dr. Max Peck Urea nitrogen [Mass/Vol] 16.0 mg/dL Normal 7.0-18.0 [facility] Comment on above: Performed By: #### T SH, URIC, T7, LIPID, CMP #### [facility] [address] [place] [address] Dr. Max Peck Urea nitrogen/Creatinine [Mass ratio] 20.0 mg/mg Normal [facility] Comment on above: Performed By: #### T SH, URIC, T7, LIPID, CMP #### [facility] [address] [place] [address] Dr. Max Peck TSHon 12-28-2021 TSH 1.544 uIU/mL Normal 0.358-3.740 [facility] Comment on above: Performed By: #### T SH, URIC, T7, LIPID, CMP #### [facility] [address] [place] [address] Dr. Max Peck URIC ACID SERUMon 12-28-2021 Urate [Mass/Vol] 5.4 mg/dL Normal 3.5-7.2 [facility] Comment on above: Performed By: #### T SH, URIC, T7, LIPID, CMP #### [facility] [address] [address] [address] Max Peck VITAMIN D 25 OHon 12-28-2021 VIT D 25-OH 51.2 ng/mL Normal [facility] Comment on above: Performed By: #### P SASC, VITAD #### [facility] [address] [id number] Max Peck VIT D RANGES SEE BELOW Normal [facility] Comment on above: Result Comment: <20 ng/mL Vit D deficient 20 - <30 ng/mL Vit D insufficient 30 - 100 ng/mL Vit D sufficient >100 ng/mL Potential Toxicity Performed By: #### P SASC, VITAD #### [facility] [address] [address] [address] Max Peck Cardiovascular Lab Reporton 09-01-2020 Cardiovascular Lab Report [facility] Patient Name: Braden Rodriguez [facility] MR #: [id number] Physician: Domenic Kohler MD Department of Service Date: 07/31/2020 Medicine Birthdate: 1955 Division of Room #: CC Cardiology Adult Cardiovascular Services [facility] [address] [address] Cardiovascular Laboratory Report The patient is a [...] Kohler MD Date Trans: 09/01/2020 10:51 A/sergio [id number] cc: Ester Cain M.D. [address], [place] [address] [facility] LUMBAR SPINE 2 OR 3 VIEWSon 05-19-2019 LUMBAR SPINE 2 OR 3 VIEWS STUDY: LUMBAR SPINE 2 OR 3 VIEWS; 05/19/2019 9:49 am INDICATION: PAIN. COMPARISON: None. ACCESSION NUMBER(S): [id number] ORDERING CLINICIAN: Edgar Fairchild FINDINGS: No fracture or subluxation of the lumbar spine. L3-L5 laminectomy defects. Moderate to severe multilevel degenerative disc height loss with endplate sclerosis and osteophyte formation. Multilevel facet arthropathy. Moderate dextroscoliosis centered at L2. IMPRESSION: Severe degenerative changes of the lumbar spine. L3-L5 laminectomy defects. Normal [facility] Vital Signs Date Time Vital Sign Value Performing Clinician Facility 10-06-2024 10:36-0400 Body height 182.88 cm Ester Cain MD [facility] Phone[facility] 10-06-2024 10:36-0400 Body mass index (BMI) [Ratio] 28.5 kg/m2 Ester Cain MD Work Phone: [facility] 10-06-2024 10:36-0400 Body temperature 97.4 [degF] Ester Cain MD Work Phone: [facility] 10-06-2024 10:36-0400 Body weight 95.25 kg Ester Cain MD Work Phone: [facility] 10-06-2024 10:36-0400 Diastolic blood pressure 60 mm[Hg] Ester Cain MD Work Phone: [facility] 10-06-2024 10:36-0400 Heart rate 50 /min Ester Cain MD Work Phone: [facility] 10-06-2024 10:36-0400 SaO2% (BldA) [Mass fraction] 100 % Ester Cain MD Work Phone: [facility] 10-06-2024 10:36-0400 Systolic blood pressure 150 mm[Hg] Ester Cain MD Work Phone: [facility] 06-16-2024 09:53-0400 Body temperature 98.29 [degF] Nurse [facility] 06-16-2024 09:53-0400 Diastolic blood pressure 79 mm[Hg] [facility] 06-16-2024 09:53-0400 Heart rate 59 /min Nurse S70 [facility] 06-16-2024 09:53-0400 SaO2% (BldA) [Mass fraction] 97 % Nurse S70 [facility] 06-16-2024 09:53-0400 Systolic blood pressure 141 mm[Hg] [facility] 06-06-2024 20:51-0400 SaO2% (BldA) [Mass fraction] 96 % ESTER CAIN [facility] Comment on above: Order Comment: Specimen Type: ARTERIAL B LOOD SPECIMENOrdering Facility: [facility] Address: [address] [place] [address] Performed By: #### A LLBG ####[facility] LABCLIA [id number] [place] [address] [place] 05-12-2024 11:13-0500 Body height 182.9 cm Katherine Keith MD Work Phone: [facility] 05-12-2024 11:13-0500 Body mass index (BMI) [Ratio] 27.8 kg/m2 Katherine Keith MD Work Phone: [facility] 05-12-2024 11:13-0500 Body weight 92.99 kg Katherine Keith MD Work Phone: [facility] 05-12-2024 11:13-0500 Diastolic blood pressure 79 mm[Hg] Katherine Hernandez Work Phone: [facility] 05-12-2024 11:13-0500 Heart rate 73 /min Katherine Keith MD Work Phone: [facility] 05-12-2024 11:13-0500 Respiratory rate 19 /min Katherine Keith MD Work Phone: [facility] 05-12-2024 11:13-0500 Systolic blood pressure 141 mm[Hg] Katherine Keith MD Work Phone: [facility] 05-12-2024 08:41-0500 Body height 182.9 cm Rhona Boss MD Work Phone: [facility] 05-12-2024 08:41-0500 Body mass index (BMI) [Ratio] 28.79 kg/m2 Rhona Boss MD Work Phone: [facility] 05-12-2024 08:41-0500 Body temperature 97 [degF] Rhona Boss MD Work Phone: [facility] 05-12-2024 08:41-0500 Body weight 96.3 kg Rhona Boss MD Work Phone: [facility] 05-12-2024 08:41-0500 Diastolic blood pressure 73 mm[Hg] Rhona Boss MD Work Phone: [facility] 05-12-2024 08:41-0500 Heart rate 67 /min Rhona Boss MD Work Phone: [facility] 05-12-2024 08:41-0500 SaO2% (BldA) [Mass fraction] 100 % Rhona Boss MD Work Phone: [facility] 05-12-2024 08:41-0500 Systolic blood pressure 157 mm[Hg] Rhona Hernandez Work Phone: [facility] 01-13-2024 13:17-0500 Body height 182.9 cm Katherine Keith MD Work Phone: [facility] 01-13-2024 13:17-0500 Body mass index (BMI) [Ratio] 27.8 kg/m2 Katherine Keith MD Work Phone: [facility] 01-13-2024 13:17-0500 Body weight 92.99 kg Katherine Keith MD Work Phone: [facility] 01-13-2024 13:17-0500 Diastolic blood pressure 68 mm[Hg] Katherine Hernandez Work Phone: [facility] 01-13-2024 13:17-0500 Heart rate 84 /min Katherine Keith MD Work Phone: [facility] 01-13-2024 13:17-0500 Systolic blood pressure 136 mm[Hg] Katherine Keith MD Work Phone: [facility] 11-12-2023 14:16-0400 Body height 182.9 cm Katherine Keith MD Work Phone: [facility] 11-12-2023 14:16-0400 Body mass index (BMI) [Ratio] 27.84 kg/m2 Katherine Keith MD Work Phone: [facility] 11-12-2023 14:16-0400 Body weight 93.1 kg Katherine Keith MD Work Phone: [facility] 11-12-2023 14:16-0400 Diastolic blood pressure 77 mm[Hg] Katherine Hernandez Work Phone: [facility] 11-12-2023 14:16-0400 Heart rate 71 /min Katherine Keith MD Work Phone: [facility] 11-12-2023 14:16-0400 Respiratory rate 18 /min Katherine Keith MD Work Phone: [facility] 11-12-2023 14:16-0400 SaO2% (BldA) [Mass fraction] 100 % Katherine Keith MD Work Phone: [facility] Comment on above: room air 11-12-2023 14:16-0400 Systolic blood pressure 146 mm[Hg] Katherine Keith MD Work Phone: [facility] 11-11-2023 13:43-0400 Blood Pressure Location Camryn NILL [facility] 11-11-2023 13:43-0400 Diastolic blood pressure 96 mm[Hg] Camryn NILL [facility] 11-11-2023 13:43-0400 Heart rate 72 /min Camryn NILL [facility] 11-11-2023 13:43-0400 Respiratory rate 16 /min Camryn NILL [facility] 11-11-2023 13:43-0400 Systolic blood pressure 136 mm[Hg] Camryn NILL [facility] 08-06-2023 09:43-0400 Body height 182.9 cm Pacc 1 Other Phone: [facility] 08-06-2023 09:43-0400 Body mass index (BMI) [Ratio] 26.43 kg/m2 Pacc 1 Other Phone: [facility] 08-06-2023 09:43-0400 Body temperature 98.1 [degF] Pacc 1 Other Phone: [facility] 08-06-2023 09:43-0400 Body weight 88.4 kg Pacc 1 Other Phone: [facility] 08-06-2023 09:43-0400 Diastolic blood pressure 69 mm[Hg] Pacc 1 Other Phone: [facility] 08-06-2023 09:43-0400 Heart rate 56 /min Pacc 1 Other Phone: [facility] 08-06-2023 09:43-0400 Respiratory rate 18 /min Pacc 1 Other Phone: [facility] 08-06-2023 09:43-0400 SaO2% (BldA) [Mass fraction] 100 % Pacc 1 Other Phone: [place] [address]-29-2024 09:43-0400 Systolic blood pressure 154 mm[Hg] Pacc 1 Other Phone: [facility] 04-30-2023 11:31-0500 Body height 182.9 cm Katherine Keith MD Work Phone: [facility] 04-30-2023 11:31-0500 Body weight 91.5 kg Katherine Keith MD Work Phone: [facility] 04-30-2023 11:31-0500 Diastolic blood pressure 69 mm[Hg] Katherine Hernandez Work Phone: [facility] 04-30-2023 11:31-0500 Heart rate 78 /min Katherine Keith MD Work Phone: [facility] 04-30-2023 11:31-0500 SaO2% (BldA) [Mass fraction] 96 % Katherine Keith MD Work Phone: [facility] 04-30-2023 11:31-0500 Systolic blood pressure 137 mm[Hg] Katherine Keith MD Work Phone: [facility] 10-30-2022 10:15-0400 Blood Pressure Location Shae Lue [facility] 10-30-2022 10:15-0400 Diastolic blood pressure 92 mm[Hg] Shae Lue [facility] 10-30-2022 10:15-0400 Heart rate 73 /min Shae Lue [facility] 10-30-2022 10:15-0400 Systolic blood pressure 145 mm[Hg] Shae Lue [facility] 10-28-2022 06:50-0400 Body height 182.88 cm MD Ester Cain Work Phone: [facility] 10-28-2022 06:50-0400 Body weight 83.91 kg MD Ester Cain Work Phone: [facility] 09-04-2022 07:45-0400 Blood Pressure Location Shae Lue [facility] 09-04-2022 07:45-0400 Diastolic blood pressure 98 mm[Hg] Shae Lue [facility] 09-04-2022 07:45-0400 Heart rate 51 /min Shae Lue [facility] 09-04-2022 07:45-0400 Respiratory rate 16 /min Shae Lue [facility] 09-04-2022 07:45-0400 Systolic blood pressure 175 mm[Hg] Shae Lue [facility] 04-03-2022 15:00-0500 Blood Pressure Location Camryn MOOREL [facility] 04-03-2022 15:00-0500 Diastolic blood pressure 96 mm[Hg] Camryn MOOREL [facility] 04-03-2022 15:00-0500 Heart rate 80 /min Camryn MOOREL [facility] 04-03-2022 15:00-0500 Respiratory rate 16 /min Camryn NILL [facility] 04-03-2022 15:00-0500 Systolic blood pressure 144 mm[Hg] Camryn MOOREL [facility] Encounters Encounter Date Encounter Type Care Provider Facility Start: 10-06-2024 End: 10-06-2024 ambulatory MAHAMED GRAY Not Available Start: 10-06-2024 End: 10-06-2024 Bamboo flowsheet Mahamed Gray DPM Work Phone: [facility] Start: 10-06-2024 End: 10-06-2024 Bamboo flowsheet Mahamed Gray DPM Work Phone: [facility] Start: 10-06-2024 End: 10-06-2024 ambulatory Ester Cain MD [facility] Phone: [facility] [facility] Work Phone: Start: 10-06-2024 End: 10-06-2024 Patient encounter procedure Citlali Black APRN -[facility] Work Phone: Start: 09-27-2024 End: 09-27-2024 Patient encounter procedure CWS Mahamed Gray DPM MS -Ultrasound Main [place] Work Phone: Start: 09-27-2024 End: 09-27-2024 ambulatory Ester Cain MD Work Phone: [facility] Work Phone: Start: 09-17-2024 End: 09-17-2024 Bamboo flowsheet Mahamed Gray DPM Work Phone: [facility] Start: 09-17-2024 End: 09-17-2024 Bamboo flowsheet Mahamed Gray DPM Work Phone: [facility] Start: 09-17-2024 End: 09-17-2024 ambulatory MAHAMED GRAY Not Available Start: 07-19-2024 End: 07-19-2024 Admission to same day surgery center Alfonso Loyd PA-C Work Phone: Spine Surgery Comment on above: Therapy Start: 07-19-2024 End: 07-19-2024 ambulatory Alfonso Bonus PA-C Work Phone: Spine Surgery Start: 07-15-2024 End: 07-15-2024 Admission to same day surgery center Alfonso Bonus PA-C Work Phone: Spine Surgery Comment on above: S/P cervical spinal fusion (Primary Dx) Start: 07-15-2024 End: 07-15-2024 Telemedicine consultation with patient Alfonso Loyd PA-C Work Phone: Spine Surgery Start: 07-15-2024 End: 07-15-2024 ambulatory KATHERINE KEITH Facility:[facility] Start: 06-29-2024 End: 06-29-2024 Telemedicine consultation with patient Alfonso Loyd PA-C Work Phone: [facility] [place] Start: 06-29-2024 End: 06-29-2024 ambulatory Alfonso Bonus PA-C Work Phone: [facility] [place] Comment on above: Spondylolysis, lumba r region (Primary Dx); S/P cervical spinal fusion X-ray scheduling Start: 06-28-2024 End: 06-28-2024 Refill Alfonso Bonus PA-C Work Phone: [facility] [place] Comment on above: Refill Request Start: 06-22-2024 End: 06-22-2024 ambulatory Alfonso Bonus PA-C Work Phone: [facility] [place] Comment on above: Add Prednisone? Start: 06-21-2024 End: 06-21-2024 Admission to same day surgery center Katherine Keith MD Work Phone: [facility] [place] Comment on above: Post surgery symptom s Refill Request Start: 06-21-2024 End: 06-21-2024 ambulatory Katherine Keith MD Work Phone: [facility] [place] Start: 06-16-2024 End: 06-16-2024 ambulatory ESTER CAIN Facility:[facility] Start: 06-16-2024 End: 06-16-2024 Patient encounter procedure Nurse Spine Surg Main [facility] [place] Comment on above: Encounter for remova l of sara (Primary Dx) Start: 06-14-2024 End: 06-14-2024 MC Get Medical Advice Alfonso Haqus PA-C Work Phone: [facility] [place] Comment on above: Med Refill Start: 06-11-2024 End: 06-11-2024 Telephone encounter Katherine Keith MD Work Phone: [facility] [place] Comment on above: Transition Of Care Start: 06-10-2024 End: 06-10-2024 ambulatory Alfonso Bonus PA-C Work Phone: [facility] [place] Comment on above: [place] removal Start: 06-09-2024 End: 06-09-2024 ambulatory Alfonso Bonus PA-C Work Phone: [facility] [place] Comment on above: Bathing instructions Start: 06-08-2024 End: 06-09-2024 Orders Only Maco Tse MD Work Phone: Cardiology Comment on above: SVT (supraventricula r tachycardia) (HCC) (Primary Dx); Elevated troponin Discharge Start: 06-04-2024 End: 06-04-2024 ambulatory Alfonso Bonus PA-C Work Phone: [facility] [place] Comment on above: Neck brace Start: 06-02-2024 End: 06-08-2024 Evaluation and management of inpatient KATHERINE PELLE Facility:[facility] Start: 06-01-2024 End: 06-01-2024 Admission to same day surgery center Alfonso Bonus PA-C Work Phone: [facility] [place] Comment on above: Phone number for charlette debbie time Start: 06-01-2024 End: 06-01-2024 ambulatory Alfonso Bonus PA-C Work Phone: [facility] [place] Start: 05-17-2024 End: 05-17-2024 ambulatory Olesya Veras RNcapacitor tester [facility] Start: 05-14-2024 [facility] Start: 05-14-2024 End: 05-14-2024 Subsequent hospital visit by physician [facility] Work Phone: RADIO [facility] Comment on above: Spinal stenosis of c ervical region [M48.02] Start: 05-12-2024 End: 05-12-2024 [facility] Start: 05-12-2024 End: 05-12-2024 Patient encounter procedure Katherine Keith MD Work Phone: [facility] [place] Comment on above: Cervical spondylosis with myelopathy (Primary Dx); Spinal stenosis of cervical region Start: 05-12-2024 End: 05-12-2024 Admission to establishment Rhona Boss MD Work Phone: [facility] Start: 05-12-2024 End: 05-12-2024 Preprocedural examination done Rhona Boss MD Work Phone: [facility] Work Phone: Start: 05-12-2024 End: 05-12-2024 ambulatory Rhona Boss MD Work Phone: [facility] Comment on above: Pre-op evaluation (P rimary Dx); Spinal stenosis of lumbar region, unspecified whether neurogenic claudication present; Primary hypertension Start: 05-12-2024 Encounter for other preprocedural examination RHONA BOSS [facility] Start: 05-10-2024 End: 05-10-2024 ambulatory ESTER CAIN Facility:[facility] Start: 05-06-2024 End: 05-06-2024 ambulatory Katherine Keith MD Work Phone: [facility] [place] Start: 05-06-2024 End: 05-06-2024 Patient encounter status Katherine Keith MD Work Phone: [facility] Start: 05-05-2024 End: 05-05-2024 Telemedicine consultation with patient Katherine Keith MD Work Phone: [facility] [place] Start: 05-05-2024 End: 05-05-2024 Admission to same day surgery center Katherine Keith MD Work Phone: [facility] [place] Comment on above: Neck surgery Start: 05-05-2024 End: 05-05-2024 ambulatory Katherine Keith MD Work Phone: [facility] [place] Comment on above: Cervical spondylosis with myelopathy (Primary Dx) Start: 04-06-2024 End: 04-06-2024 ambulatory Alfonso Karina SCHWARTZ Work Phone: [facility] [place] Comment on above: Request for Medical records Start: 02-21-2024 End: 02-21-2024 ambulatory ESTER CAIN Facility:[facility] Start: 02-21-2024 End: 02-21-2024 Subsequent hospital visit by physician Mri 7 Radio Main Q (I-Stat/1.5t/3t) Work Phone: MRI Q Comment on above: Spinal stenosis of c ervical region [M48.02] Start: 02-03-2024 End: 02-03-2024 Orders Only Alfonso Karina SCHWARTZ Work Phone: [facility] [place] Comment on above: Spinal stenosis of c ervical region (Primary Dx) Start: 01-13-2024 End: 01-13-2024 Patient encounter procedure Katherine Keith MD Work Phone: [facility] [place] Comment on above: S/P lumbar fusion (P rimary Dx); Right leg weakness Start: 01-13-2024 End: 01-13-2024 ambulatory ESTER CAIN Facility:[facility] Start: 01-13-2024 End: 01-13-2024 Patient encounter procedure Emg 1 Neur Main (Max Weight: 1000) Work Phone: Neurology Start: 01-13-2024 End: 01-13-2024 ambulatory ESTER CAIN Neurology Comment on above: EMG Start: 01-13-2024 End: 01-13-2024 ambulatory KATHERINE KEITH Facility:[facility] Start: 01-13-2024 End: 01-13-2024 Subsequent hospital visit by physician Mri 4 Radio Main Q (I-Stat/1.5t/3t) Work Phone: MRI Q Comment on above: Adverse effect of tr eatment, sequela [T88.9XXS] Acute low back pain, unspecified back pain laterality, unspecified whether sciatica present [M54.50] Start: 12-16-2023 End: 12-16-2023 ambulatory Camryn AGUSTIN Facility: [facility] Start: 12-16-2023 End: 12-16-2023 Patient encounter procedure Camryn AGUSTIN [facility] [place] Start: 12-05-2023 End: 12-05-2023 Telephone encounter Katherine Keith MD Work Phone: [facility] [place] Comment on above: Textbook [employer] - O ther Start: 11-26-2023 End: 11-26-2023 ambulatory MD Ester Cain Work Phone: [facility] Work Phone: Start: 11-26-2023 End: 11-26-2023 Departed Referred MD Ester Cain Work Phone: [facility] Start: 11-26-2023 End: 11-26-2023 ambulatory Camryn Rodriguez [facility] Facility::[id number] Start: 11-21-2023 End: 11-24-2023 ambulatory Alfonso CANELAC Work Phone: [facility] [place] Comment on above: Tests Start: 11-12-2023 End: 11-12-2023 Patient encounter procedure Katherine Keith MD Work Phone: [facility] [place] Comment on above: Adverse effect of tr eatment, sequela (Primary Dx); Acute low back pain, unspecified back pain laterality, unspecified whether sciatica present Start: 11-12-2023 End: 11-13-2023 Follow-up encounter Katherine Keith MD Work Phone: [facility] [place] Comment on above: Follow up med reques t Start: 11-12-2023 End: 11-13-2023 ambulatory Katherine Keith MD Work Phone: [facility] [place] Start: 11-12-2023 End: 11-12-2023 Subsequent hospital visit by physician Vaishnavi Ochoa J1-4 Work Phone: Radiology Comment on above: History of laminecto my [Z98.890] Start: 11-11-2023 End: 11-11-2023 Follow-up encounter Katherine Keith MD Work Phone: [facility] [place] Comment on above: Surgery followup Start: 11-11-2023 End: 11-11-2023 ambulatory Katherine Keith MD Work Phone: [facility] [place] Start: 11-11-2023 End: 11-11-2023 Patient encounter procedure Camryn AGUSTIN [facility] [place] Start: 11-05-2023 End: 11-05-2023 Telephone encounter Alfonso Bonus PA-C Work Phone: [facility] [place] Comment on above: Refill Request Insurance Authorizat ion Start: 10-29-2023 End: 10-30-2023 Refill Alfonso Bonus PA-C Work Phone: [facility] [place] Comment on above: Refill Request Start: 10-23-2023 ambulatory Alfonso Bonus PA-C Work Phone: [facility] [place] Comment on above: Office number Start: 10-22-2023 ambulatory Alfonso Bonus PA-C Work Phone: [facility] [place] Comment on above: Medication Start: 10-21-2023 End: 10-21-2023 ambulatory Alfonso Bonus PA-C Work Phone: [facility] [place] Comment on above: Right leg weakness ( Primary Dx); S/P lumbar fusion Fax numbers Start: 10-21-2023 End: 10-21-2023 Telemedicine consultation with patient Alfonso Bonus PA-C Work Phone: [facility] [place] Start: 10-16-2023 Telephone encounter Katherine wright MD Work Phone: Neurology Comment on above: medication Start: 10-15-2023 Refill Alfonso Bonus PA-C Work Phone: [facility] [place] Comment on above: Refill Request Start: 10-09-2023 MC Get Medical Advice Katherine Keith MD Work Phone: [facility] [place] Comment on above: Script refills Start: 10-02-2023 End: 10-04-2023 Evaluation and management of inpatient KATHERINE KEITH Facility:[facility] Start: 09-30-2023 Telephone encounter Aaron (Rsr Rocio Mcleod Comment on above: Research Start: 09-30-2023 End: 09-30-2023 Nursing evaluation of patient and report Melody Castaneda RN [facility] [place] Comment on above: S/P lumbar spinal fu grace (Primary Dx) Start: 09-30-2023 End: 09-30-2023 ambulatory ESTER CAIN Facility:[facility] Start: 09-24-2023 Telephone encounter Judi MCKEON [facility] [place] Comment on above: CARE CONTINUUM ADVIS OR ASSESSMENT Start: 09-21-2023 Refill Alfonso Loyd PA-C Work Phone: [facility] [place] Comment on above: Refill Request Start: 09-18-2023 End: 09-18-2023 Refill Stephane KHALIL-C Work Phone: [facility] [place] Comment on above: Refill Request Start: 09-17-2023 ambulatory Katherine Keith MD Work Phone: [facility] [place] Start: 09-17-2023 Patient encounter status Margarette Keith MD Work Phone: [facility] Start: 09-16-2023 ambulatory Katherine Keith MD Work Phone: [facility] [place] Comment on above: Legs swelling Start: 09-16-2023 Telephone encounter Katherine wright MD Work Phone: Neurology Comment on above: Patient Update Start: 09-15-2023 MC Get Medical Advice Katherine Keith MD Work Phone: [facility] [place] Comment on above: Med refill Start: 09-11-2023 ambulatory Katherine Keith MD Work Phone: [facility] [place] Comment on above: Meds at home discuss ion Start: 09-09-2023 ambulatory Alfonso Loyd PA-C Work Phone: [facility] [place] Comment on above: Phyo Ruyt Braden Rodriguez Start: 09-09-2023 Follow-up encounter Katherine wright MD Work Phone: [facility] [place] Comment on above: Surgery followup Start: 09-07-2023 End: 09-10-2023 Evaluation and management of inpatient CHRISTIANNE ZIEGLER Facility:[facility] Start: 09-05-2023 Refill Alfonso Haqus PA-C Work Phone: Medical Records Comment on above: Refill Request Start: 09-04-2023 Telephone encounter Katherine wright MD Work Phone: Neurology Comment on above: Patient Update Start: 09-02-2023 Refill Alfonso Bonus PA-C Work Phone: [facility] [place] Comment on above: Refill Request Med refill Start: 09-01-2023 Admission to [facility] Katherine Keith MD Work Phone: [facility] [place] Comment on above: 08/19/23 surgery Start: 09-01-2023 ambulatory Katherine Keith MD Work Phone: [facility] [place] Start: 08-29-2023 Telephone encounter Katherine wright MD Work Phone: Neurology Comment on above: Medication Problem Start: 08-29-2023 End: 08-29-2023 ambulatory Alfonso Loyd PA-C Work Phone: [facility] [place] Comment on above: Acute post-operative pain Start: 08-29-2023 End: 08-29-2023 Telemedicine consultation with patient Alfonso Loyd PA-C Work Phone: [facility] [place] Start: 08-26-2023 Get Medical Advice Katherine Keith MD Work Phone: [facility] [place] Comment on above: Oxicodone medication refill Start: 08-22-2023 End: 08-22-2023 Evaluation and management of inpatient ESTER CAIN Facility:[facility] Start: 08-19-2023 End: 08-22-2023 Evaluation and management of inpatient KATHERINE KEITH Facility:[facility] Start: 08-12-2023 End: 08-12-2023 ambulatory KATHERINEJON KEITH Facility:[facility] Start: 08-11-2023 Telephone encounter Judi MCKEON [facility] [place] Comment on above: Follow Up Start: 08-10-2023 ambulatory Olesya Veras RN [facility] [place] [id number] Comment on above: Blood Management Start: 08-06-2023 End: 08-06-2023 ambulatory ALFONSO LOYD [facility] Start: 08-06-2023 Encounter for other preprocedural examination [facility] Start: 08-06-2023 End: 08-06-2023 Admission to establishment [address]acc [address] Other Phone: Pre Anesthesia Start: 08-06-2023 End: 08-06-2023 Patient encounter procedure Pacc Av 1 Other Phone: Pre Anesthesia Comment on above: Pre-op exam (Primary Dx); Primary hypertension; SVT (supraventricular tachycardia) (HCC); History of penicillin allergy Start: 08-06-2023 End: 08-06-2023 Preprocedural examination done Pacc Av 1 Other Phone: [facility] Work Phone: Start: 08-06-2023 End: 08-06-2023 ambulatory KATHERINE KEITH Facility:[facility] Start: 08-06-2023 Encounter for other preprocedural examination [facility] Start: 08-01-2023 Admission to [facility] Katherine Keith MD Work Phone: [facility] [place] Comment on above: Sooner Surgery Date Start: 08-01-2023 ambulatory Katherine Keith MD Work Phone: [facility] [place] Start: 08-01-2023 Telephone encounter Katherine wright MD Work Phone: [facility] [place] Comment on above: Patient Update Start: 07-30-2023 End: 07-30-2023 ambulatory ESTER M ANT Facility:[facility] Start: 07-14-2023 Telephone encounter Katherine wright MD Work Phone: [facility] [place] Comment on above: Forms Start: 07-11-2023 ambulatory Katherine Keith MD Work Phone: [facility] [place] Start: 07-11-2023 Patient encounter status Margarette Keith MD Work Phone: [facility] Start: 06-22-2023 Admission to same da y surgery center Katherine Keith MD Work Phone: [facility] [place] Comment on above: Surgery date Start: 06-22-2023 ambulatory Katherine Keith MD Work Phone: [facility] Start: 06-11-2023 ambulatory Katherine Keith MD Work Phone: [facility] Start: 06-11-2023 Documentation procedure Mark Keith MD Work Phone: [facility] [place] Comment on above: LTD Documents Start: 06-11-2023 Telephone encounter Katherine wright MD Work Phone: [facility] [place] Comment on above: Forms Start: 05-29-2023 Telephone encounter Katherine wright MD Work Phone: [facility] [place] Comment on above: Schedule Surgery Start: 05-28-2023 Admission to same da y surgery center Katherine Keith MD Work Phone: [facility] [place] Comment on above: Surgery date Start: 05-28-2023 ambulatory Katherine Keith MD Work Phone: [facility] Start: 05-23-2023 Admission to same da y surgery center Katherine Keith MD Work Phone: [facility] [place] Comment on above: Surgery date Start: 05-23-2023 ambulatory Katherine Keith MD Work Phone: [facility] Start: 05-19-2023 Admission to same da y surgery center Katherine Keith MD Work Phone: [facility] [place] Comment on above: Surgery schedule Start: 05-19-2023 ambulatory Katherine Keith MD Work Phone: [facility] Start: 05-04-2023 ambulatory KATHERINE KEITH Facility: [facility] Start: 05-04-2023 End: 05-04-2023 Subsequent hospital visit by physician [facility] (I-Stat) Work Phone: [facility] Radiology CT Scan Comment on above: Chronic low back simba n, unspecified back pain laterality, unspecified whether sciatica present [M54.50, G89.29] Start: 04-30-2023 End: 04-30-2023 Subsequent hospital visit by physician Xr Main A21 Radiology Comment on above: History of lumbar la minectomy for spinal cord decompression [Z98.890] Start: 04-30-2023 End: 04-30-2023 Patient encounter procedure Katherine Keith MD Work Phone: [facility] [place] Comment on above: History of lumbar la minectomy for spinal cord decompression (Primary Dx); Degenerative scoliosis in adult patient; Chronic low back pain, unspecified back pain laterality, unspecified whether sciatica present Start: 04-30-2023 End: 04-30-2023 Subsequent hospital visit by physician Xr Main J1-4 Work Phone: Radiology Comment on above: Spinal stenosis, lum bar region with neurogenic claudication [M48.062] Start: 03-19-2023 Chart abstracting Katherine landaverde MD Work Phone: Neurology Start: 12-05-2022 End: 12-05-2022 Patient encounter procedure Shae Guillory [facility] Start: 10-30-2022 End: 10-30-2022 Patient encounter procedure Shae Guillory [facility] [place] Start: 10-28-2022 End: 10-28-2022 ambulatory MD Ester Cain Work Phone: [facility] Work Phone: Start: 10-28-2022 End: 10-28-2022 Patient encounter procedure MD Ester Cain Work Phone: [facility]-MRI Main [place] Work Phone: Start: 09-04-2022 End: 09-04-2022 Patient encounter procedure Shae Guillory [facility] Start: 05-21-2022 End: 05-21-2022 Patient encounter procedure Camryn MOOREL General Surgery Nill/Said [facility] Start: 05-07-2022 End: 05-07-2022 Patient encounter procedure Camryn MOOREL General Surgery Nill/Said [place] Start: 04-22-[address] Ester Cain Facility:[id number] Start: 04-14-2022 Encounter for preprocedural laboratory examination DR CAMRYN AGUSTIN . [facility] Start: 04-11-2022 End: 04-12-2022 Encounter for preprocedural laboratory examination DR WILTON NICHOLE Facility:[facility] Start: 04-11-2022 End: 04-12-[address] WILTON NICHOLE Facility:[facility] Start: 04-03-2022 End: 04-03-2022 Patient encounter procedure Camryn MOOREL General Surgery Nill/Said [facility] Start: 03-16-2022 End: 03-16-[address] [facility] Facility:[facility] Start: 03-06-2022 End: 03-07-[address] ESTER CAIN . Facility:[facility] Start: 01-18-2022 End: 01-19-[address] ESTER CAIN . Facility:[facility] Start: 01-02-2022 Encounter for genera l adult medical examination without abnormal findings DR ESTER CAIN . [facility] Start: 01-01-2022 End: 01-02-[address] ESTER CAIN . Facility:[facility] Start: 12-28-2021 End: 12-29-[address] ESTER CAIN . Facility:[facility] Start: 12-28-2021 End: 12-29-2021 Encounter for general adult medical examination without abnormal findings DR ESTER CAIN . Facility: Start: 07-31-2020 End: 08-01-2020 ambulatory ESTER CAIN Facility:[facility] Procedures Date Procedure Procedure Detail Performing Clinician Start: 09-27-2024 Pulse volume recorder pneumoplethysmography Ester Cain MD Work Phone: Start: 05-12-2024 Antibody screen ESTER CAIN Comment on above: Order Comment: Specimen Type: BLOOD SPEC IMENOrdering Facility: [facility] Address: [address] [place] [address] Performed By: #### T SCR30 ####CC MAIN BLOOD BANKCLIA [id number] [address] Start: 02-21-2024 Mri spinal canal cervical w/o contrast matrl Alfonso Loyd PA-C Work Phone: Start: 01-13-2024 Nerve conduction studies 5-6 studies Meenakshi Morin MD Work Phone: Start: 01-13-2024 Ct lumbar spine w/o contrast material Meenakshi Morin MD Work Phone: Start: 01-13-2024 Mri spinal canal lumbar w/o contrast material Meenakshi Morin MD Work Phone: Start: 11-26-2023 Colonoscopy Mahamed Gray DPM Work Phone: Start: 11-26-2023 Colonoscopy Camryn NILL Start: 11-12-2023 Radex spine lumbosacral 2/3 views Alfonso KHALIL-C Work Phone: Start: 10-02-2023 Antibody screen ESTER CAIN Comment on above: Order Comment: Specimen Type: BLOOD SPEC IMENOrdering Facility: [facility] Address: [address] [place] [address] Performed By: #### T SCR ####CC MAIN BLOOD BANKCLIA [id number] [address] [place] Start: 10-02-2023 Exploration spinal fusion Camryn AGUSTIN Start: 10-02-2023 Celaya facetectomy&foramtomy 1 sgm ea crv thrc/lmbr Camryn AGUSTIN Start: 08-06-2023 Antibody screen KATHERINE KEITH Comment on above: Order Comment: Specimen Type: BLOOD SPEC IMEN Ordering Facility: [facility] Address: [address] [place] [address] [place] [address] Performed By: #### T SCR30 #### [facility] CLIA [id number] [place], [place] [id number] [place] [address] [facility] Start: 08-06-2023 Ecg routine ecg w/least 12 lds i&r only Sanam KHALIL-C Work Phone: Start: 05-04-2023 Ct lumbar spine w/o contrast material Katherine Keith MD Work Phone: Start: 04-30-2023 Radex entir thrc lmbr crv sac spi w/skull 2/3 vw Katherine Keith MD Work Phone: Start: 04-30-2023 Radex spine lumbosacral minimum 4 views Alfonso CANELAC Work Phone: Start: 11-27-2022 Transperineal needle biopsy of prostate Shae Guillory Start: 10-28-2022 MR prostate wo/w con MD Ester Cain Work Phone: Start: 04-29-2022 Laparoscopic repair of obstructed hernia of anterior abdominal wall Camryn AGUSTIN Start: 12-28-2021 PSA screening Edenilson Knight Comment on above: Performed By: #### PSASC, VITAD #### [facility] [address] [place] [address] Dr. 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: sikhism and shave leson left neck Extraction of cataract Sergio yifan AGUSTIN History of cholecystectomy S/P cholecyste ctomy Ester Cain MD Work Phone: History of excision of lamina of lumbar vertebra for decompression of spinal cord History of lumbar laminectomy for spinal cord decompression Xr A21 History of excision of lamina of lumbar vertebra for decompression of spinal cord History of lumbar laminectomy for spinal cord decompression Katherine Keith MD Work Phone: Laminectomy Camryn AGUSTIN Comment on above: x 3-- 1999 Lumbar spinal fusion Camryn AGUSTIN Revision of fusion o f lumbar spine Camryn AGUSTIN Plan of Treatment Date Care Activity Detail Author Start: 11-25-2033 Screening for malignant neoplasm of colon [facility] Start: 06-09-2027 Diabetes Screening Diabetes Screening [facility] Start: 06-05-2027 Diabetes Screening Diabetes Screening [facility] Start: 05-13-2027 Diabetes Screening Diabetes Screening [facility] Start: 12-28-2026 Prostate specific antigen measurement Prostate Cancer Screening Discussion [facility] Start: 10-03-2026 Diabetes Screening Diabetes Screening [facility] Start: 09-09-2026 Diabetes Screening Diabetes Screening [facility] Start: 09-06-2026 Diabetes Screening Diabetes Screening [facility] Start: 08-21-2026 Diabetes Screening Diabetes Screening [facility] Start: 08-05-2026 Diabetes Screening Diabetes Screening [facility] Start: 11-08-2024 Influenza vaccination [facility] Start: 10-06-2024 End: 10-06-2024 Patient encounter procedure 10/06/2024 4:15 PM EDT Office Visit [facility] [address] [place] [address] Mahamed Gray, DPM [address] [place] [address] [facility] Comment on above: Arrived Start: 09-27-2024 Pulse volume recorder pneumoplethysmography [facility] Start: 09-17-2024 End: 09-17-2024 Patient encounter procedure 09/17/2024 10:30 AM EDT Office Visit [facility] [address] [place] [address] Mahamed Gray, DPM [address] [place] [address] Arrived [facility] Comment on above: Arrived Start: 07-15-2024 End: 07-15-2024 Admission to same day surgery center 07/15/2024 9:00 AM EDT [facility] Spine Surgery [address] [place] [address] Alfonso Loyd PA-C [address] [place] [address] POST-OP 6-8WKS Spine Surgery Comment on above: POST-OP 6-8WKS Start: 07-09-2024 End: 07-09-2024 Patient encounter procedure Radiology Comment on above: POST-OP Elevated troponin af ter spine surgery Start: 06-29-2024 End: 06-29-2024 ambulatory 06/29/2024 9:30 AM EDT [facility] [place] [address] [id number] Alfonso Loyd PA-C [address] [place] [address] POST-2WKS [facility] Comment on above: POST-2WKS Start: 06-16-2024 End: 06-16-2024 Patient encounter procedure 06/16/2024 10:00 AM EDT Office Visit [facility] [address] [place] [address] Staple Removal [facility] Comment on above: Staple Removal Start: 06-16-2024 End: 06-16-2024 ambulatory 06/16/2024 9:00 AM EDT [facility] [place] [address] [place] [address] Alfonso Loyd PA-C [address] [place] [address] POST-2WKS [facility] [place] Comment on above: POST-2WKS Start: 06-02-2024 End: 06-02-2024 Admission to same day surgery center [facility] Comment on above: Schedule surgery CERVICAL LAMINOPLAST Y WITH DECOMPRESSION 2 OR MORE SEGMENTS Start: 06-02-2024 End: 06-02-2024 Admission to same day surgery center 06/02/2024 8:30 AM EDT - 06/02/2024 11:27 AM EDT Surgery Admitting [address] [place] [address] Katherine Keith MD [address] [place] [address] CERVICAL LAMINOPLASTY WITH DECOMPRESSION 2 OR MORE [...] Pre-op testing Expected: 05/12/2024 (Approximate), Expires: 06/02/2024 [facility] Comment on above: Expected: 05/12/2024 (Approximate), Expi res: 06/02/2024 Start: 05-12-2024 End: 05-12-2024 Patient encounter procedure 05/12/2024 11:30 AM EST Office Visit [facility] [place] [address] [place] [address] Katherine Keith MD [address] [place] [address] PRE-OP CLEARANCE [facility] Comment on above: PRE-OP CLEARANCE Start: 05-12-2024 End: 05-12-2024 Patient encounter procedure Admitting Comment on above: PRE-OP CLEARANCE Start: 05-12-2024 End: 05-12-2024 Anesthesia consultation 05/12/2024 9:20 AM EST PAT Pre Anesthesia [address] [place] [address] 9, Pacc [address] [place] [address] PRE-OP CLEARANCE Pre Anesthesia Comment on above: PRE-OP CLEARANCE Start: 05-10-2024 End: 05-10-2024 Patient encounter procedure 05/10/2024 10:00 AM EST Office Visit Financial Clearance Phone Screening [facility] REGISTRATION Financial Clearance Phone Screening Comment on above: REGISTRATION Start: 05-06-2024 End: 06-02-2024 CBC W Auto Differential panel - Blood COMPLETE BLOOD COUNT AND DIFFERENTIAL Lab Routine Iron deficiency anemia, unspecified iron deficiency anemia type Expected: 05/06/2024 (Approximate), Expires: 06/02/2024 [facility] Comment on above: Expected: 05/06/2024 (Approximate), Expi res: 06/02/2024 Start: 05-06-2024 End: 06-02-2024 Ferritin [Mass/volume] in Serum or Plasma FERRITIN Lab Routine Iron deficiency anemia, unspecified iron deficiency anemia type Expected: 05/06/2024 (Approximate), Expires: 06/02/2024 [facility] Comment on above: Expected: 05/06/2024 (Approximate), Expi res: 06/02/2024 Start: 05-06-2024 End: 06-02-2024 Iron and Iron binding capacity panel - Serum or Plasma IRON AND TIBC Lab Routine Iron deficiency anemia, unspecified iron deficiency anemia type Expected: 05/06/2024 (Approximate), Expires: 06/02/2024 [place] Work Phone: Comment on above: Expected: 05/06/2024 (Approximate), Expi res: 06/02/2024 Start: 03-10-2024 Advance Directive Discussion Advance Directive Discussion [facility] Start: 01-13-2024 End: 01-13-2024 Patient encounter procedure 01/13/2024 1:40 PM EST Office Visit [facility] [address] [place] [id number] Katherine Keith MD [address] [place] [address] f/u with provider [facility] Comment on above: f/u with provider Start: 01-13-2024 End: 01-13-2024 ambulatory 01/13/2024 9:30 AM EST Procedure Neurology [address] [place] [address] Adverse effect of treatment, sequela [T88.9XXS] Neurology Comment on above: Adverse effect of treatment, sequela [T8 8.9XXS] Start: 01-13-2024 End: 01-13-2024 Patient encounter procedure 01/13/2024 8:30 AM EST Appointment MRI Q [address] [address] MRI LUMBAR SPINE WO IVCON MRI Q Comment on above: MRI LUMBAR SPINE WO IVCON Start: 01-13-2024 End: 01-13-2024 Patient encounter procedure MRI Q Comment on above: MRI THORACIC SPINE WO IVCON Acute low back pain, unspecified back pain laterality, unspecified whether sciatica present [M54.50] Start: 11-12-2023 End: 11-12-2023 Patient encounter procedure 11/12/2023 2:20 PM EDT Office Visit [facility] [place] [address] [place] [address] Katherine Keith MD [address] [place], [place] [phone] post op in person [facility] Comment on above: post op in person Start: 11-12-2023 End: 11-12-2023 Patient encounter procedure 11/12/2023 1:10 PM EDT Appointment Radiology [address] [phone] post op lumbar Radiology Comment on above: post op lumbar Start: 11-09-2023 Covid-19 Vaccine () Covid-19 Vaccine () [facility] Start: 11-09-2023 Covid-19 Vaccine () Covid-19 Vaccine () [facility] Start: 11-09-2023 Influenza vaccination [facility] Start: 10-21-2023 End: 10-21-2023 ambulatory 10/21/2023 8:50 AM EDT [facility] [place] [address] [place], [place] [phone] Alfonso Loyd PA-C [address] [place] [address] MYC Postop [facility] [place] Comment on above: MYC Postop Start: 10-14-2023 End: 10-14-2023 Patient encounter procedure Radiology Comment on above: post op lumbar post op in person Start: 10-08-2023 End: 10-08-2023 Patient encounter procedure 10/08/2023 12:40 PM EDT Office Visit [facility] [address] [place] [address] Katherine Keith MD [address] [place] [address] post op in person [facility] Comment on above: post op in person Start: 10-08-2023 End: 10-08-2023 Patient encounter procedure 10/08/2023 11:30 AM EDT Appointment Radiology [address] [place] [address] post op lumbar Radiology Comment on above: [...] 09/30/2023 10:00 AM EDT Nurse Visit [facility] [address] [place] [address] Melody Castaneda, PATRICIA Phone Education [facility] Comment on above: Phone Education Start: 09-18-2023 End: 09-18-2023 Patient encounter procedure 09/18/2023 2:00 PM EDT Office Visit Financial Clearance Phone Screening [place] [address] Hillary [employer] Clear[employer] Phone Screening Comment on above: Hillary Start: 09-17-2023 End: 12-17-2023 STAPHYLOCOCCUS AUREUS & MRSA SCREEN, PCR, NASAL STAPHYLOCOCCUS AUREUS & MRSA SCREEN, PCR, NASAL Lab Routine S/P lumbar spinal fusion Pre-op testing Expected: 09/17/2023, Expires: 12/17/2023 [place] Work Phone: Comment on above: Expected: 09/17/2023, Expires: Start: 09-16-2023 End: 09-16-2023 ambulatory 09/16/2023 10:10 AM EDT [facility] [place] [address] [place], [place] [id number] Alfonso Loyd PA-C [address] [phone] 2 week post op( virtual visit) [facility] Comment on above: 2 week post op( virtual visit) Start: 09-02-2023 End: 09-02-2023 Admission to same day surgery center 09/02/2023 7:30 AM EDT - 09/02/2023 2:00 PM EDT Surgery Admitting [address] [place] [address] Katherine Keith MD [address] [place] [address] LAT LUMBAR SPINE FUSION Admitting Comment on [...] 7:30 AM EDT Hospital Encounter Admitting [address] [place] [address] Katherine Keith MD [address] [facility] [place] [address] History of laminectomy [Z98.890] Admitting Comment on above: History of laminectomy [Z98.890] Start: 08-29-2023 End: 08-29-2023 ambulatory 08/29/2023 8:30 AM EDT [facility] [place] [address] [place] [address] Alfonso Loyd PA-C [address] [place] [address] 2 week post op( virtual visit) [facility] Comment on above: 2 week post op( virtual visit) Start: 08-28-2023 End: 08-28-2023 ambulatory 08/28/2023 10:00 AM EDT [facility] Patient Outreach [facility] [place] [address] [place] [address] Provider, Nurse Adolfo Keating [address] [place] [address] Nurse ROBERTO [facility] Comment on above: Nurse SEA Start: 08-19-2023 End: 08-19-2023 Admission to same day surgery center 08/19/2023 7:30 AM EDT - 08/19/2023 2:00 PM EDT Surgery Admitting [address] [place] [address] Katherine Keith MD [address] [place] [address] LAT LUMBAR SPINE FUSION Admitting Comment on [...] 7:30 AM EDT Hospital Encounter Admitting [address] [place] [address] Katherine Keith MD [address] [place] [address] History of laminectomy [Z98.890] Admitting Comment on above: History of laminectomy [Z98.890] Start: 08-12-2023 End: 08-12-2023 ambulatory 08/12/2023 2:00 PM EDT [facility] Patient Outreach [facility] [place] [address] [place] [id number] Provider, Nurse Adolfo Keating [address] [place] [address] Nurse KEATING [facility] Comment on above: Nurse KEATING Start: 08-11-2023 End: 11-10-2023 CBC W Auto Differential panel - Blood COMPLETE BLOOD COUNT AND DIFFERENTIAL Lab Routine History of laminectomy Degenerative scoliosis in adult patient Pre-op testing Iron deficiency anemia, unspecified iron deficiency anemia type Expected: 08/11/2023 (Approximate), Expires: 11/10/2023 [facility] Comment on above: Expected: 08/11/2023 (Approximate), Expi res: 11/10/2023 Start: 08-11-2023 End: 11-10-2023 Ferritin [Mass/volume] in Serum or Plasma FERRITIN Lab Routine History of laminectomy Degenerative scoliosis in adult patient Pre-op testing Iron deficiency anemia, unspecified iron deficiency anemia type Expected: 08/11/2023 (Approximate), Expires: 11/10/2023 [facility] Comment on above: Expected: 08/11/2023 (Approximate), Expi res: 11/10/2023 Start: 08-11-2023 End: 11-10-2023 Iron and Iron binding capacity panel - Serum or Plasma IRON AND TIBC Lab Routine History of laminectomy Degenerative scoliosis in adult patient Pre-op testing Iron deficiency anemia, unspecified iron deficiency anemia type Expected: 08/11/2023 (Approximate), Expires: 11/10/2023 [place] Work Phone: Comment on above: Expected: 08/11/2023 (Approximate), Expi res: 11/10/2023 Start: 08-11-2023 End: 11-10-2023 STAPHYLOCOCCUS AUREUS & MRSA SCREEN, PCR, NASAL STAPHYLOCOCCUS AUREUS & MRSA SCREEN, PCR, NASAL Lab Routine History of laminectomy Degenerative scoliosis in adult patient Pre-op testing Expected: 08/11/2023 (Approximate), Expires: 11/10/2023 [facility] Comment on above: Expected: 08/11/2023 (Approximate), Expi res: 11/10/2023 Start: 08-06-2023 End: 08-06-2023 Patient encounter procedure Pre Anesthes ia Comment on above: pre op pre op labs Start: 07-30-2023 End: 07-30-2023 Patient encounter procedure 07/30/2023 10:30 AM EDT Office [place] [id number] pre op gc [employer] Phone Screening Comment on above: pre op gc Start: 03-10-2023 Advance Directive Discussion Advance Directive Discussion [facility] Start: 03-10-2023 Behavioral Health Screening Behavioral Health Screening [facility] Start: 03-10-2023 Depression Assessment Depression Assessment [facility] Start: 11-08-2022 Covid-19 Vaccine () Covid-19 Vaccine () [facility] Start: 11-08-2022 Influenza vaccination [facility] Vacc[facility] Start: 2022 Pneumococcal Vaccine: 65+ (1 of 1 - PCV) Pneumococcal Vaccine: 65+ (1 of 1 - PCV) [facility] Start: 2017 RSV Vaccine (1 - 1-dose 60+ series) RSV Vaccine (1 - 1-dose 60+ series) [facility] Start: 2017 RSV Vaccine (1 - Risk 60-74 years 1-dose series) RSV Vaccine (1 - Risk 60-74 years 1-dose series) [facility] Start: 2012 Prostate specific antigen measurement Prostate Cancer Screening Discussion [facility] Start: 2007 Pneumococcal Vaccine: 50+ (1 of 1 - PCV) Pneumococcal Vaccine: 50+ (1 of 1 - PCV) [facility] Start: 2007 Pneumococcal Vaccine: 65+ Years (1 of 1 - PCV) Pneumococcal Vaccine: 65+ Years (1 of 1 - PCV) [facility] Start: 2007 Shingrix Vaccine (1 of 2) Shingrix Vaccine (1 of 2) [facility] Start: 2002 Diabetes Screening Diabetes Screening [facility] Start: 2002 Screening for malignant neoplasm of colon [facility] Start: 1992 Lipid panel Lipid Screening [facility] Start: 1976 Urine microalbumin profile DTaP,Tdap,Td Vaccine (1 - Tdap) [facility] Start: 1975 Annual PCP Team Chronic Disease Visit Annual PCP Team Chronic Disease Visit [facility] Start: 1975 Anxiety Screening Anxiety Screening [facility] Start: 1975 BP Controlled (<130/80) BP Controlled (<130/80) [facility] Start: 1975 Depression Screening Depression Screening [facility] Start: 1975 Hepatitis C screening Hepatitis C Screening [facility] Start: 1957 Covid-19 Vaccine (#1) Covid-19 Vaccine (#1) [facility] Start: 1957 Screening for malignant neoplasm of colon [facility] CT Cervical spine WO contrast CT CERVICAL SPINE WO IVCON Radiology Routine Spinal stenosis of cervical region 05/14/2024 9:43 AM EST [place] Work Phone: End: 12-11-2024 CT Lumbar spine WO contrast CT LUMBAR SPINE WO IVCON Radiology Routine Acute low back pain, unspecified back pain laterality, unspecified whether sciatica present 1 Occurrences starting 11/12/2023 until 12/11/2024 [facility] Comment on above: 1 Occurrences starting 11/12/2023 until 12/11/2024 ECG COMPLETE ECG COMPLETE ECG Routine Pre-op exam 08/06/2023 8:48 AM EDT [place] Work Phone: End: 06-08-2025 ECG COMPLETE ECG COMPLETE ECG Routine SVT (supraventricular tachycardia) (HCC) Elevated troponin 1 Occurrences starting 06/08/2024 until 06/08/2025 [place] Work Phone: Comment on above: 1 Occurrences starting 06/08/2024 until 06/08/2025 End: 04-30-2024 EMG(NEURO/NI) EMG(NEURO/NI) EMG Routine History of lumbar laminectomy for spinal cord decompression Degenerative scoliosis in adult patient Chronic low back pain, unspecified back pain laterality, unspecified whether sciatica present 1 Occurrences starting 04/30/2023 until 04/30/2024 [place] Work Phone: Comment on above: 1 Occurrences starting 04/30/2023 until 04/30/2024 End: 11-11-2024 EMG(NEURO/NI) EMG(NEURO/NI) EMG Routine Adverse effect of treatment, sequela 1 Occurrences starting 11/12/2023 until 11/11/2024 [facility] Comment on above: 1 Occurrences starting 11/12/2023 until 11/11/2024 End: 03-04-2025 MR Cervical spine WO contrast MRI CERVICAL SPINE WO IVCON Radiology Routine Spinal stenosis of cervical region 1 Occurrences starting 02/03/2024 until 03/04/2025 [place] Work Phone: Comment on above: 1 Occurrences starting 02/03/2024 until 03/04/2025 End: 12-11-2024 MR Lumbar spine WO contrast MRI LUMBAR SPINE WO IVCON Radiology Routine Adverse effect of treatment, sequela 1 Occurrences starting 11/12/2023 until 12/11/2024 [facility] Comment on above: 1 Occurrences starting 11/12/2023 until 12/11/2024 End: 12-11-2024 MR Thoracic spine WO contrast MRI THORACIC SPINE WO IVCON Radiology Routine Adverse effect of treatment, sequela 1 Occurrences starting 11/12/2023 until 12/11/2024 [place] Work Phone: Comment on above: 1 Occurrences starting 11/12/2023 until 12/11/2024 End: 04-19-2024 Radex spine lumbosacral minimum 4 views XR LUMBAR MOTION 4V AP/LAT/ FLEX/EXT Radiology Routine Spinal stenosis, lumbar region with neurogenic claudication 1 Occurrences starting 03/21/2023 until 04/19/2024 [place] Work Phone: Comment on above: 1 Occurrences starting 03/21/2023 until 04/19/2024 End: 06-05-2025 XR Cervical spine AP and Lateral XR CERV GENERAL 2V AP/LAT Radiology Routine Spinal stenosis of cervical region 1 Occurrences starting 05/06/2024 until 06/05/2025 [facility] Comment on above: 1 Occurrences starting 05/06/2024 until 06/05/2025 End: 07-29-2025 XR Cervical spine AP and Lateral XR CERV GENERAL 2V AP/LAT Radiology Routine S/P cervical spinal fusion 1 Occurrences starting 06/29/2024 until 07/29/2025 [place] Work Phone: Comment on above: 1 Occurrences starting 06/29/2024 until 07/29/2025 End: 08-10-2024 XR Lumbar spine AP and Lateral XR LUMBAR LIMITED 2V AP/LAT Radiology Routine History of laminectomy Degenerative scoliosis in adult patient 1 Occurrences starting 07/11/2023 until 08/10/2024 [facility] Comment on above: 1 Occurrences starting 07/11/2023 until 08/10/2024 [facility] Immunizations Immunization Date Immunization Notes Care Provider [facility] 12-29-2020 influenza virus vaccine, unspecified formulation Shae Guillory [facility] 12-29-2020 SARS-CoV-2 (COVID-19 ) mRNA BNT-162b2 yolanda AGUSTIN [facility] [place] 06-09-2020 SARS-CoV-2 (COVID-19 ) mRNA BNT-162b2 yolanda AGUSTIN [facility] [place] 05-19-2020 SARS-CoV-2 (COVID-19 ) mRNA BNT-162b2 vax Camryn AGUSTIN [facility] Comment on above: Result Comment: 2022: [id number] NEGATED: Highlighted row has not occurred!04-03-2022 influenza virus vaccine, unspecified formulation Camryn AGUSTIN [facility] NEGATED: Highlighted row has not occurred!05-27-2019 influenza virus vaccine, live, attenuated, for intranasal use [employer] [facility] [place] Payers Date Payer Category Payer Self-pay 2015 Private Health Insurance [id number] 1959 Private Health Insurance [id number] 1957 Unknown [id number] 1957 Unknown [id number] 1957 Unknown [id number] 1957 Unknown [id number] [id number] 1957 Unknown [id number] [id number] 1957 Unknown [id number] [id number] 1957 Unknown [id number] [id number] 1957 Unknown [id number] [id number] 1957 Unknown [id number] [id number] 1957 Unknown [id number] [id number] 1957 Unknown [id number] [id number] 1957 Unknown [id number] [id number] 1957 Unknown [id number] [id number] Unknown Regular Insurance [id number] Unknown [id number] Unknown [id number] Social History Date Type Detail Facility Start: 04-03-2022 End: 09-17-2024 Tobacco smoking status Never smoked tobacco (finding) [facility] Tobacco smoking status Never [facility] Start: 04-30-2023 End: 09-17-2024 Sex Assigned At Male [facility] Start: 1955 Sex Assigned At Male [facility] Start: 09-12-2008 End: 04-30-2023 Alcohol intake Not Asked [facility] Start: 03-20-2023 Gender identity Identifies as male gender (finding) [facility] Start: 03-20-2023 Sexual orientation Heterosexual (finding) [facility] Start: 04-30-2023 Tobacco use and exposure Former smokeless tobacco user [facility] End: 03-10-1999 History of tobacco use Chews Tobacco [facility] Start: 04-30-2023 End: 09-17-2024 History of Social function [facility] Start: 08-06-2023 End: 09-17-2024 Alcohol intake Lifetime non-drinker (finding) [facility] Has the electric, [employer], oil, or water company threatened to shut off services in your home in past 12Mo No [facility] (I/We) worried wheth er (my/our) food would run out before (I/we) got money to buy more. Never true [facility] smoking consumption unknown [facility] Start: 1955 Sex assigned at Not on file [facility] Sex Male (finding) [facility] Start: 09-17-2024 Tobacco use and exposure Smokeless tobacco non-user [facility] Medical Equipment Procedure Code Equipment Code Equipment Origin al Text Equipment Identifier Dates Signify Gel Inst afill Cartridge 5cc [id number] Start: 08-19-2023 Creo Mis Locking Cap [id number] Sta rt: 08-19-2023 Graft Infuse 20g a Medium Bovine Collagen Rhbmp-2 2x1in Bone Vial Absorbable - [id number] Start: 08-19-2023 Signify Gel Inst afill [...] [id number] Start: 08-19-2023 Spacer Rise-L 3d Lordotic [id number] Spinal Nonsterile [id number] Start: 08-19-2023 Spacer Rise-L 3d Lordotic [id number] Spinal Nonsterile [id number] Start: 08-19-2023 Plate Canopy 9mm Bone Shelf Inline Spine - [id number] Start: 06-02-2024 Screw Canopy 2.6 mm 4mm Bone Self Drill Laminoplasty Spine - [id number] Start: 06-02-2024 Canopy 2.6mm Scr ew Self-Drilling 6mm [id number] Start: 06-02-2024 Functional Status Date Assessment Result Facility 06-08-2024 Are you deaf, or do you have serious difficulty hearing No 06/08/2024 3:04 PM Markus Crews RN No [facility] 06-08-2024 Are you blind, or do you have serious difficulty seeing, even when wearing glasses No 06/08/2024 3:04 PM Markus Crews RN No [facility] 06-08-2024 Do you have serious difficulty walking or climbing stairs No 06/08/2024 3:04 PM Markus Crews, PATRICIA No [facility] 06-08-2024 Do you have difficul ty dressing or bathing Yes 06/08/2024 3:04 PM Markus Crews, PATRICIA Yes [facility] 06-08-2024 Because of a physica l, mental, or emotional condition, do you have difficulty doing errands alone such as visiting a physician's office or shopping Yes 06/08/2024 3:04 PM Markus Crews, PATRICIA Yes [facility] 11-11-2023 Functional Status N/A [facility] 10-04-2023 Are you deaf, or do you have serious difficulty hearing No 10/04/2023 11:49 AM Hayley Parrish, PATRICIA No [facility] 10-04-2023 Are you blind, or do you have serious difficulty seeing, even when wearing glasses No 10/04/2023 11:49 AM Hayley Parrish RN No [facility] 10-04-2023 Do you have serious difficulty walking or climbing stairs No 10/04/2023 11:49 AM Hayley Parrish, PATRICIA No [facility] 10-04-2023 Do you have difficul ty dressing or bathing No 10/04/2023 11:49 AM Hayley Parrish, PATRICIA No [facility] 10-04-2023 Because of a physica l, mental, or emotional condition, do you have difficulty doing errands alone such as visiting a physician's office or shopping No 10/04/2023 11:49 AM Hayley Parrish, RN No [facility] 12-05-2022 Functional Status N/A [facility] 10-30-2022 Functional Status N/A [facility] [facility] 09-04-2022 Functional Status No [facility] 04-03-2022 Functional Status N/A [facility] Status Date Assessment Result Facility 06-08-2024 Because of a physica l, mental, or emotional condition, do you have serious difficulty concentrating, remembering, or making decisions Yes 06/08/2024 3:04 PM EDT Markus Mccord, PATRICIA Yes [facility] 10-04-2023 Because of a physica l, mental, or emotional condition, do you have serious difficulty concentrating, remembering, or making decisions No 10/04/2023 11:49 AM EDT Hayley Vivas RN No [facility] Clinical Notes 05-07-2022 to 07-15-2024 Alfonso Loyd PA-C - 07/15/2024 9:04 AM Alfonso Anne PA-C - 06/29/2024 9:18 AM EDTTelephone Encounter - Khushboo Mazariegos RN - 06/21/2024 8:30 AM Garcia Doranets LPN - 06/16/2024 9:46 AM EDT Note Date & Type Note Facility 07-15-2024 Note [facility] 07-15-2024 History of Present illness Narrative Images from the original note were not included. SPINE SURGERY FOLLOW UP This is a virtual visit using [employer] Video Visit. It required patient-provider interaction for the medical decision making as documented below. I have communicated my name and active licensure. The patient's identity and physical location were verified at the time of this visit. Either the patient or their legal pharmaceutical representative has been informed of the risks [...] 9:13 AM PAGER: documented in this encounter [facility] 06-29-2024 Note [facility] 06-29-2024 History of Present illness Narrative Images from the original note were not included. SPINE SURGERY FOLLOW UP This is a virtual visit using [employer] Video Visit. It required patient-provider interaction for the medical decision making as documented below. I have communicated my name and active licensure. The patient's identity and physical location were verified at the time of this visit. Either the patient or their legal pharmaceutical representative has been informed of the risks [...] advised to coordinate cardiology care with existing roller structural mill in [place] since he does not want to come to [facility]. The majority of the visit was spent counseling and/or coordinating care for the patient. Total face to face time was 30 minutes. SIGNATURE: Alfonso Loyd PA-C PATIENT NAME: Braden Rodriguez DATE: June 29, 2024 TIME: 9:20 AM PAGER: documented in this encounter [facility] 06-21-2024 Telephone encounter Note Neuro SPINE CARE COORDINATION QUICK NOTE Patient requesting oxycodone refill. Last filled: 06/15/24 Surgery: 06/02/24 F/U: 06/29/24 [facility] 06-21-2024 Miscellaneous Notes Neuro SPINE CARE COORDINATION QUICK NOTE Patient requesting oxycodone refill. Last filled: 06/15/24 Surgery: 06/02/24 F/U: 06/29/24 documented in this encounter [facility] 06-16-2024 Note [facility] 06-16-2024 History of Present illness Narrative [...] Garcia Lomax LPN documented in this encounter [facility] 06-14-2024 Telephone encounter Note Had on 06/02/2024 [...] hours Taking Oxycodone 2 every 5 hours. [facility] 06-14-2024 Miscellaneous Notes Had on 06/02/2024 SURGERY/PROCEDURE: [...] every 5 hours. documented in this encounter [facility] 06-11-2024 Telephone encounter Note Neuro SPINE CARE [...] Luciano RN June 11, 2024 11:30 AM [facility] Work Phone: 06-11-2024 Miscellaneous Notes Neuro SPINE [...] 2024 11:30 AM documented in this encounter [facility] 06-10-2024 Telephone encounter Note Operations During Hospitalization: 06/02/2024: C3, C7 dome laminectomy, C4-6 laminoplasty [facility] 06-10-2024 Miscellaneous Notes Operations During Hospitalization: 06/02/2024: C3, C7 dome laminectomy, C4-6 laminoplasty documented in this encounter [facility] 06-09-2024 Telephone encounter Note Operations During Hospitalization: 06/02/2024: C3, C7 dome laminectomy, C4-6 laminoplasty Shared with RN team for review. [facility] 06-09-2024 Miscellaneous Notes Operations During Hospitalization: 06/02/2024: C3, C7 dome laminectomy, C4-6 laminoplasty Shared with RN team for review. documented in this encounter [facility] 06-08-2024 Note [facility] 06-08-2024 Note [facility] 06-08-2024 Note [facility] 06-07-2024 Note HNO ID: [id number] Author: MARKUS MCCORD RN Service: Nursing Author Type: Registered Nurse Type: Nursing Progress Note Filed: 06/07/2024 18:52 Note Text: Pt refusing telemetry. Mariel De Leon notified. [facility] 06-07-2024 Note [facility] 06-07-2024 Note [facility] 06-06-2024 Note [facility] 06-05-2024 Note [facility] 06-04-2024 Note [facility] 06-03-2024 Note [facility] 06-03-2024 Note [facility] 06-03-2024 Note [facility] 06-03-2024 Note [facility] 06-03-2024 Note [facility] 06-02-2024 Note [facility] 06-02-2024 Note [facility] 06-02-2024 Note [facility] 06-02-2024 Note [facility] 05-17-2024 Note [facility] 05-17-2024 History of Present illness Narrative Patient referred to Blood Management for pre-surgical optimization. Hgb 14.9 which exceeds Blood Management guidelines for intervention. documented in this encounter [facility] 05-14-2024 History of Present illness Narrative Radiology [...] PATIENT PRESENTS WITH AN IMPLANTABLE OR ATTACHED GAS DISTRIBUTION SUPERVISOR: No RADIOLOGY DEPARTMENT: CT; Exam(s) Completed: [facility] PERIPHERAL IV DATA: Not applicable SIGNED BY: DEON Sierra May 14, 2024 9:44 AM documented in this encounter [facility] 05-14-2024 Note HNO ID: [id number] Author: ZHANG RODRÍGUEZ CT Service: Radiology Author [...] PATIENT PRESENTS WITH AN IMPLANTABLE OR ATTACHED GAS DISTRIBUTION SUPERVISOR: No RADIOLOGY DEPARTMENT: CT; Exam(s) Completed: [facility] PERIPHERAL IV DATA: Not applicable SIGNED BY: DEON Sierra May 14, 2024 9:44 AM [facility] 05-12-2024 Note [facility] 05-12-2024 History of Present illness Narrative [...] 12:22 PM PAGER: documented in this encounter [facility] 05-12-2024 Instructions Rhona Boss MD - 05/12/2024 8:53 AM EST Images from the original note were not included. [facility] PATIENT PREOPERATIVE INSTRUCTIONS Katherine Keith MD has scheduled you for your procedure at this surgery center: [facility] [place] Scheduling Office: [phone] --[address] [place] [address]. Please read below carefully for your personalized [...] office. If you are currently using a [id number] injectable or oral medication for diabetes or [...] or other anticoagulants without consulting with your roller structural mill or prescribing physician. - Stop ALL herbal [...] please check with your dialysis center or securities dealer to see if any adjustments need to [...] Procedures: - YOU MUST HAVE A RESPONSIBLE LABORER ORCHARD TAKE YOU HOME. A WOOD SCRAP HANDLER OR GLASS GLAZIER CANNOT BE MADE A RESPONSIBLE LABORER ORCHARD. - We recommend that a responsible person [...] call the Friday before. Your surgeon s master scheduler will tell you what time to call the office. - If you have not reached the departmental master scheduler by 5 P.M., call [phone] after 5 P.M. the day before your surgery. Please be aware that emergency situations arise, which may delay or change your surgical time. If this happens, we will notify you as soon as possible and regret any inconvenience. If you already have an Advance Directive, please fax a copy to [phone] or email to for it to be [...] Rhona Boss MD documented in this encounter [facility] 05-12-2024 History and physical note Images from [...] [facility]:: [facility] Status of surgery/procedure:: Scheduled Date of surgery/procedure:: [...] fevers. Neurological: No history of TIA's, stroke, OIL BAY TECHNICIAN tumor, impaired sensorium, hemiplegia, paraplegia or [...] 402 QTC Calculation (Bazett) 411 Calculated P [place] 59 Calculated R Well[place] 48 Calculated T [place] 72 Impression NORMAL SINUS RHYTHM POSSIBLE LEFT ATRIAL ENLARGEMENT BORDERLINE ECG No results found for this or any previous visit (from the past 39234 hours). Instructions Given to Patient: Instructions located in the after visit summary. Patient given verbal and written preop instructions and voices comprehension and compliance. SIGNATURE: Rhona Boss MD PATIENT NAME: Braden Rodriguez DATE: May 12, 2024 TIME: 8:38 AM PAGER/CONTACT #: [facility] 05-12-2024 History and physical note Images from [...] [facility]:: [facility] Status of surgery/procedure:: Scheduled Date of surgery/procedure:: [...] fevers. Neurological: No history of TIA's, stroke, OIL BAY TECHNICIAN tumor, impaired sensorium, hemiplegia, paraplegia or [...] 402 QTC Calculation (Bazett) 411 Calculated P [place] 59 Calculated R [place] 48 Calculated T [place] 72 Impression NORMAL SINUS RHYTHM POSSIBLE LEFT ATRIAL ENLARGEMENT BORDERLINE ECG No results found for this or any previous visit (from the past 34051 hours). Instructions Given to Patient: Instructions located in the after visit summary. Patient given verbal and written preop instructions and voices comprehension and compliance. SIGNATURE: Rhona Boss MD PATIENT NAME: Braden Rodriguez DATE: May 12, 2024 TIME: 8:38 AM PAGER/CONTACT #: documented in this encounter [facility] 05-05-2024 Note [facility] 05-05-2024 History of Present illness Narrative Virtual visit: I have communicated my name and active licensure. The patient's identity and physical location were verified at the time of this visit. Either the patient or their legal pharmaceutical representative has been informed of the risks and benefits of -- and alternatives to -- treatment through a remote evaluation and consents to proceed with the evaluation remotely. 10 minutes Follow up virtual visit. Last seen 01/12/25 and we decided to continuing to monitor his right foot drop which persisted. His left foot was starting to make some progress. He reports no roving changer the last 3 months. He feels like [...] Katherine Keith MD documented in this encounter [facility] 02-21-2024 History of Present illness Narrative Radiology [...] PATIENT PRESENTS WITH AN IMPLANTABLE OR ATTACHED GAS DISTRIBUTION SUPERVISOR: No RADIOLOGY DEPARTMENT: MR; Exam(s) Completed: Spine: Cervical spine PERIPHERAL IV DATA: Not applicable SIGNED BY: RT Lydia(R) February 21, 2024 4:25 PM documented in this encounter [facility] 02-21-2024 Note [facility] 02-03-2024 Telephone encounter Note Attempted to contact patient regarding Cervical MRI that was ordered Left detailed message on patient identified voicemail. Number to schedule provided. [facility] 02-03-2024 Miscellaneous Notes Attempted to contact patient regarding Cervical MRI that was ordered Left detailed message on patient identified voicemail. Number to schedule provided. documented in this encounter [facility] 01-13-2024 Note [facility] 01-13-2024 History of Present illness Narrative [...] Christopher MD (AJ) documented in this encounter [facility] 01-13-2024 Note [facility] 01-13-2024 History of Present illness Narrative [...] Care Visit completed when applicable. Mis Grimes, head of mobile Brian Mckeon MD documented in this encounter [facility] 01-13-2024 History of Present illness Narrative Radiology [...] PATIENT PRESENTS WITH AN IMPLANTABLE OR ATTACHED GAS DISTRIBUTION SUPERVISOR: No RADIOLOGY DEPARTMENT: MR; Exam(s) Completed: Spine: Thoracic spine and Lumbar spine PERIPHERAL IV DATA: Not applicable SIGNED BY: RT Blossom(R) January 13, 2024 7:51 AM documented in this encounter [facility] 01-13-2024 Note [facility] 01-13-2024 History of Present illness Narrative [...] PATIENT PRESENTS WITH AN IMPLANTABLE OR ATTACHED GAS DISTRIBUTION SUPERVISOR: No RADIOLOGY DEPARTMENT: CT; Exam(s) Completed: Spine PERIPHERAL IV DATA: Not applicable SIGNED BY: RT Cj(R) January 13, 2024 8:52 AM documented in this encounter [facility] 01-13-2024 Note [facility] 12-05-2023 Telephone encounter Note Called patient to follow up after steroid taper. No answer. Left message to return call to the office. [facility] 12-05-2023 Miscellaneous Notes Called patient to follow up after steroid taper. No answer. Left message to return call to the office. documented in this encounter [facility] 11-13-2023 Note Addended by: ALFONSO LOYD on: 11/13/2023 04:25 PM Modules accepted: Orders [facility] 11-13-2023 Miscellaneous Notes Addended by: ALFONSO LOYD on: 11/13/2023 04:25 PM Modules accepted: Orders documented in this encounter [facility] 11-12-2023 Note [facility] 11-12-2023 History of Present illness Narrative [...] above Meenakshi Morin MD Spine Surgery Fellow [phone] [facility]: [facility]: [id number] I reviewed the information obtained and documented by the fellow. I examined the patient and evaluated all available films and pertinent documents. We discussed the case and I agree with the plans as outlined in this note. SIGNATURE: Katherine Keith MD PATIENT NAME: Braden Rodriguez DATE: November 12, 2023 TIME: 2:47 PM PAGER: documented in this encounter [facility] 11-12-2023 History of Present illness Narrative Radiology [...] PATIENT PRESENTS WITH AN IMPLANTABLE OR ATTACHED GAS DISTRIBUTION SUPERVISOR: No RADIOLOGY DEPARTMENT: General X-ray: Exam(s) Completed: Spine X-Ray(s): Lumbar AP / LAT / L5-S1 PERIPHERAL IV DATA: Not applicable SIGNED BY: RT Guillermo(R) November 12, 2023 1:13 PM documented in this encounter [facility] 11-12-2023 Note [facility] 11-11-2023 Telephone encounter Note Patient returned call and was transferred to RN Discussed we will not be able to refill the narcotic until tomorrow, and will review in office tomorrow. Patient also has questions and concerns for the nerve pain and right foot drop that has persisted. No further questions, he voiced appreciation for the call [facility] 11-11-2023 Miscellaneous Notes Patient returned call and [...] to the office. documented in this encounter [facility] 11-11-2023 Telephone encounter Note Attempted to contact patient to discuss his my chart message and medication refill request. Left message to return call to the office. [facility] 11-11-2023 Note General Surgery Offi ce/Clinic Note [...] mg= 1 cap( (more content not included)... [facility] Comment on above: Result Comment: Elec tronically Signed By: VAMSI JERNIGAN, Camryn Baker\Date and Time Signed: 11/11/23 14:24 EDT 11-05-2023 Telephone encounter Note Prior auth completed, awaiting approval [facility] 11-05-2023 Miscellaneous Notes Prior auth completed, awaiting approval [facility] called re Rx Refill, needs a Pre-auth because insurance only cover 2 refills. Pls do the pre-auth through: covermymeds. The gibbons: [id number] (low/upper is ok). Pls let [facility] know once it's approved by call [phone] documented in this encounter [facility] 11-05-2023 Telephone encounter Note Prior auth completed [id number] [facility] 11-05-2023 Miscellaneous Notes Prior auth completed [id number] Received a fax from Cover My Meds requesting a prior authorization for: Hydrocodone-Acetaminophen 5-325 MG Tablets Cover My Meds Gibbons: [id number] Pharmacy: [id number] Fax scanned in to pt's chart for our records. documented in this encounter [facility] 11-05-2023 Telephone encounter Note Received a fax from Cover My Meds requesting a prior authorization for: Hydrocodone-Acetaminophen 5-325 MG Tablets Cover My Meds Gibbons: [id number] Pharmacy: [id number] Fax scanned in to pt's chart for our records. [facility] 11-05-2023 Telephone encounter Note [facility] called re Rx Refill, needs a Pre-auth because insurance only cover 2 refills. Pls do the pre-auth through: covermymeds. The gibbons: [id number] (low/upper is ok). Pls let [facility] know once it's approved by call [phone] [facility] 10-23-2023 Note Addended by: ALFONSO LOYD on: 10/23/2023 11:22 AM Modules accepted: Orders [facility] 10-23-2023 Miscellaneous Notes Addended by: ALFONSO LOYD on: 10/23/2023 11:22 AM Modules accepted: Orders Called [facility] pharmacy and confirmed they do not have the [place] available. Pharmacist cancelled order. Will update JUDY to send to new pharmacy listed. documented in this encounter [facility] 10-23-2023 Telephone encounter Note Called [facility] pharmacy and confirmed they do not have the [place] available. Pharmacist cancelled order. Will update JUDY to send to new pharmacy listed. [facility] 10-21-2023 Note [facility] 10-21-2023 History of Present illness Narrative SPINE SURGERY FOLLOW UP This is a virtual visit using [employer] Video Visit. It required patient-provider interaction for the medical decision making as documented below. I have communicated my name and active licensure. The patient's identity and physical location were verified at the time of this visit. Either the patient or their legal pharmaceutical representative has been informed of the risks [...] 8:40 AM PAGER: documented in this encounter [facility] 10-16-2023 Telephone encounter Note Noted medication update. No Issue for change from surgical standpoint. [facility] 10-16-2023 Miscellaneous Notes Noted medication update. No Issue for change from surgical standpoint. Naye from Dr. Ester Cain's office called. Pt was seen yesterday complaining of the side effect from Gabapentin and the doctor change the medication to Lyrica 50 mg. documented in this encounter [facility] 10-16-2023 Telephone encounter Note Naye from Dr. Ester Cain's office called. Pt was seen yesterday complaining of the side effect from Gabapentin and the doctor change the medication to Lyrica 50 mg. [facility] Work Phone: 10-09-2023 Note Addended by: ALFONSO LOYD on: 10/09/2023 03:44 PM Modules accepted: Orders [facility] 10-09-2023 Miscellaneous Notes Addended by: ALFONSO LOYD on: 10/09/2023 03:44 PM Modules accepted: Orders documented in this encounter [facility] 10-04-2023 Note [facility] 10-04-2023 Note [facility] 10-04-2023 Note [facility] 10-03-2023 Note [facility] 10-03-2023 Note [facility] 10-02-2023 Note [facility] 10-02-2023 Note [facility] 09-30-2023 Telephone encounter Note Summary: Research [...] Medical Student Visiting Researcher OUTCOMES RESEARCH MAIN [facility] 09-30-2023 Miscellaneous Notes Summary: Research Interest: POUR [...] OUTCOMES RESEARCH MAIN documented in this encounter [facility] 09-30-2023 Note [facility] 09-30-2023 History of Present illness Narrative Neuro SPINE CARE COORDINATION PRE-OP VISIT Met with patient via phone for pre op education. Given both written and verbal instructions re : Skin prep, wound care, pain management and post op restrictions. Provided to patient: [facility] Surgery Guide, skin prep supplies, Spine Surgery Pre/post op education packet. Yes Reviewed with patient to report to desk J19 for surgery ? Yes. Reviewed with the patient to call [phone] the day before to get surgery report [...] Melody Castaneda RN documented in this encounter [facility] 09-24-2023 Telephone encounter Note CARE CONTINUUM ADVISOR ASSESSMENT PRIMARY CARE PHYSICIAN: Ester Cain MD OR Surgery Date: 10/02/23 Health Insurance: Group [employer] [facility] Financial Resources: Retired Primary Contact: Extended Emergency Contact Information Primary Emergency Contact: Marycarmen Rodriguez Address: [address] [place] [address] [facility] Mobile Relation: Spouse Secondary Emergency Contact: NORA RODRIGUEZ Mobile Relation: Son Other Important Patient Contacts: None 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 No FREEDOM OF CHOICE: Level of Care Discussed: Home Care Financial Disclosure Provided: No Financial Disclaimer Provided: No Provider List: Home Care Provider list within the patient's requested geographic area shared with the patient/family: Yes - Within [address] of [address] [place] [address] PAC Provider Choices Collected Home Health: no prefernece Interventions: N/A SIGNATURE: DALLAS Barros PATIENT NAME: Braden Rodriguez DATE: September 24, 2023 TIME: 1:00 PM PAGER/CONTACT #: [facility] 09-24-2023 Miscellaneous Notes CARE CONTINUUM ADVISOR ASSESSMENT PRIMARY CARE PHYSICIAN: Ester Cain MD OR Surgery Date: 10/02/23 Health Insurance: [employer] Financial Resources: Retired Primary Contact: Extended Emergency Contact Information Primary Emergency Contact: Marycarmen Rodriguez Address: [address] [place] [address] Mobile Relation: Spouse Secondary Emergency Contact: NORA RODRIGUEZ Mobile Relation: Son Other Important Patient Contacts: None 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 No FREEDOM OF CHOICE: Level of Care Discussed: Home Care Financial Disclosure Provided: No Financial Disclaimer Provided: No Provider List: Home Care Provider list within the patient's requested geographic area shared with the patient/family: Yes - Within [address] of [address] [place] [address] PAC Provider Choices Collected Home Health: no prefernece Interventions: N/A SIGNATURE: DALLAS Barros PATIENT NAME: Braden Rodriguez DATE: September 24, 2023 TIME: 1:00 PM PAGER/CONTACT #: CM was able to leave a brief detailed message on identified vm requesting call back to discuss post op care. CM provided contact information. documented in this encounter [facility] 09-24-2023 Telephone encounter Note CM was able to leave a brief detailed message on identified vm requesting call back to discuss post op care. CM provided contact information. [facility] 09-16-2023 Telephone encounter Note Attempted to return call to home care PT Patient is coming back in for surgery in 2 weeks. Does not nee home care at this time. [facility] 09-16-2023 Miscellaneous Notes Attempted to return call to home care PT Patient is coming back in for surgery in 2 weeks. Does not nee home care at this time. Call received for Katherine Keith MD regarding Braden Rodriguez. Caller: Other: Devin with [facility] Patient Identified by Name and : Yes Reason for Call: Devin is calling to notify Dr. Keith that patient has not been seen for PT Devin states patient will not return calls Is there any additional information the provider should know? No, no response needed Last Office Visit: 09/04/2023 Next scheduled appointment: 10/08/2023 Best number to reach caller: Devin [phone] Best time to reach caller: 9 am till 5 pm Is it OK to leave a detailed voice message? Yes Melia Vieyra documented in this encounter [facility] 09-16-2023 Telephone encounter Note Call received for Katherine Keith MD regarding Braden Rodriguez. Caller: Other: Devin with [facility] Patient Identified by Name and : Yes Reason for Call: Devin is calling to notify Dr. Keith that patient has not been seen for PT Devin states patient will not return calls Is there any additional information the provider should know? No, no response needed Last Office Visit: 09/04/2023 Next scheduled appointment: 10/08/2023 Best number to reach caller: Devin [phone] Best time to reach caller: 9 am till 5 pm Is it OK to leave a detailed voice message? Yes Melia Vieyra [facility] 09-15-2023 Note Addended by: STEPHANE FAIR on: 09/15/2023 01:41 PM Modules accepted: Orders [facility] 09-15-2023 Miscellaneous Notes Addended by: STEPHANE FAIR [...] PA-C Spine Surgery documented in this encounter [facility] 09-15-2023 Telephone encounter Note Reviewed in patient notes Covering provider for Alfonso Loyd PA-C and Katherine Keith MD Patient's request for medication is as follows: Requested Prescriptions Pending Prescriptions Disp Refills oxyCODONE IR (ROXICODONE) 10 mg tab 42 tablet 0 Sig: Take 1 tablet by mouth every 4 hours as needed for pain for up to 7 days. Stephane Fair PA-C Spine Surgery [facility] 09-12-2023 Note Addended by: ALFONSO LOYD on: 09/12/2023 02:35 PM Modules accepted: Orders [facility] 09-12-2023 Miscellaneous Notes Addended by: ALFONSO LOYD on: 09/12/2023 02:35 PM Modules accepted: Orders documented in this encounter [facility] 09-10-2023 Note [facility] 09-10-2023 Note [facility] 09-10-2023 Note [facility] 09-09-2023 Note [facility] 09-09-2023 Note [facility] 09-09-2023 Note [facility] 09-08-2023 Note [facility] 09-08-2023 Note [facility] 09-05-2023 Telephone encounter Note Script was sent on 09/03. [facility] 09-05-2023 Miscellaneous Notes Script was sent on 09/03. documented in this encounter [facility] 09-04-2023 Telephone encounter Note Pt has an order that is from PA. Arianne [facility]. Marianne from [facility] called and said pt was refusing Home Health. I did as her to call the ordering PA, she wanted it noted in his chart here, as well [facility] 09-04-2023 Miscellaneous Notes Pt has an order that is from PA. Arianne [facility]. Marianne from [facility] called and said pt was refusing Home Health. I did as her to call the ordering PA, she wanted it noted in his chart here, as well documented in this encounter [facility] 09-02-2023 Telephone encounter Note Patient phones requesting refills as follows: Requested Prescriptions Pending Prescriptions Disp Refills oxyCODONE IR (ROXICODONE) 5 mg immediate release tablet 42 tablet 0 Sig: Take 1 tablet by mouth every 4 hours for 7 days. Last visit: 08/29/[address]: [facility], [id number] Pharmacy Current Dosage: Patient is currently taking 1 tab every 4 hrs; Has enough for several days left. Please review and advise; ph: [phone] 09-02-2023 Miscellaneous Notes Patient phones requesting refills as follows: Requested Prescriptions Pending Prescriptions Disp Refills oxyCODONE IR (ROXICODONE) 5 mg immediate release tablet 42 tablet 0 Sig: Take 1 tablet by mouth every 4 hours for 7 days. Last visit: 08/29/2023 Pharmacy: [facility], [id number] Pharmacy Current Dosage: Patient is currently taking 1 tab every 4 hrs; Has enough for several days left. Please review and advise; ph: [phone] [facility] documented in this encounter [facility] 09-01-2023 Telephone encounter Note Returned call to [...] review with Dr Keith and follow up. [facility] 09-01-2023 Miscellaneous Notes Returned call to patient [...] and follow up. documented in this encounter [facility] 08-29-2023 Telephone encounter Note Returned call to pharmacy. Advised Vikas Loyd did speak to patient regarding stopping the [employer] and taking Oxy. Also getting his pain medication through us during this post op time period. He voiced appreciation. No further questions. [facility] 08-29-2023 Miscellaneous Notes Returned call to pharmacy. Advised Vikas Loyd did speak to patient regarding stopping the [employer] and taking Oxy. Also getting his pain medication through us during this post op time period. He voiced appreciation. No further questions. Call received for Katherine Keith MD regarding Braden Rodriguez. Caller: Viviane Hopkins [facility] [place] Patient Identified by Name and : Yes [...] appointment: 10/08/2023 Best number to reach caller: [phone] Best time to reach caller: any Is it OK to leave a detailed voice message? Yes Winnie Quesada documented in this encounter [facility] 08-29-2023 Telephone encounter Note Call received for Katherine Keith MD regarding Braden Rodriguez. Caller: Viviane Hopkins [facility] [place] Patient Identified by Name and : Yes [...] appointment: 10/08/2023 Best number to reach caller: [phone] Best time to reach caller: any Is it OK to leave a detailed voice message? Yes Winnie Quesada [facility] 08-29-2023 Note [facility] 08-29-2023 History of Present illness Narrative SPINE SURGERY FOLLOW UP This is a virtual visit using [employer] Zoom Video Visit. It required patient-provider interaction for the medical decision making as documented below. I have communicated my name and active licensure. The patient's identity and physical location were verified at the time of this visit. Either the patient or their legal pharmaceutical representative has been informed of the risks [...] operative pain is now more tolerable. Using [employer] from his PCP which is not as [...] His PCP filled his lat prescription for [employer] which is not providing relief. We discussed [...] 8:20 AM PAGER: documented in this encounter [facility] 08-22-2023 Note [facility] 08-21-2023 Note [facility] 08-21-2023 Note [facility] 08-20-2023 Note [facility] 08-20-2023 Note [facility] 08-20-2023 Note [facility] 08-20-2023 Note [facility] 08-19-2023 Note [facility] 08-19-2023 Note [facility] 08-19-2023 Note [facility] 08-11-2023 Telephone encounter Note CM was able to leave a brief detailed message on identifed vm requesting call back to discuss post op care. CM provided contact information. [facility] 08-11-2023 Miscellaneous Notes CM was able to leave a brief detailed message on identifed vm requesting call back to discuss post op care. CM provided contact information. documented in this encounter [facility] 08-10-2023 Note [facility] 08-10-2023 History of Present illness Narrative Patient referred to Blood Management for pre-surgical optimization. Hgb 15.1 which exceeds Blood Management guidelines for intervention. documented in this encounter [facility] 08-06-2023 History and physical note HISTORY AND [...] over the last year. Relieving factors include [employer] and steroids. Aggravating factors include repetitive movement. [...] fevers. Neuro: No history of TIA's, stroke, [employer]IL [employer]AY TECHNIC[employer] tumor, impaired sensorium, hemiplegia, paraplegia or quadraplegia. No neurological symptoms or problems. Respiratory: No history of current cough or dyspnea, or pneumonia in the past 6 weeks. No history of respiratory/pulmonary symptoms or problems. Cardiovascular:+htn, SVT Negative for Recent CA, Angina, CAD, Chest Pain GI: No history [...] Braden Rodriguez DATE: 08/06/2023 TIME: 10:18 AM [facility] 08-06-2023 History and physical note HISTORY AND [...] over the last year. Relieving factors include [employer] and steroids. Aggravating factors include repetitive movement. [...] fevers. Neuro: No history of TIA's, stroke, [employer]CHNIC[employer] tumor, impaired sensorium, hemiplegia, paraplegia or quadraplegia. No neurological symptoms or problems. Respiratory: No history of current cough or dyspnea, or pneumonia in the past 6 weeks. No history of respiratory/pulmonary symptoms or problems. Cardiovascular:+htn, SVT Negative for Recent CA, Angina, CAD, Chest Pain GI: No history [...] Specific Question: Does consulting provider have [facility] access? Answer: Yes Type and Screen, [...] TIME: 10:18 AM documented in this encounter [facility] 08-01-2023 Telephone encounter Note Duplicate, patient already spoke to RN (see phone encounter). [facility] 08-01-2023 Miscellaneous Notes Duplicate, patient already spoke to RN (see phone encounter). documented in this encounter [facility] 08-01-2023 Telephone encounter Note Patient accepts sooner date of 08/18 New education class on 08/11 at 2 PM Will change post ops He voiced appreciation. No further questions. [facility] 08-01-2023 Miscellaneous Notes Patient accepts sooner date of 08/18 New education class on 08/11 at 2 PM Will change post ops He voiced appreciation. No further questions. Patient is returning nurse call pertaining to below message, sooner appt call back [phone] Called patient to offer sooner surgery date Left message to return call to the office documented in this encounter [facility] 08-01-2023 Telephone encounter Note Patient is returning nurse call pertaining to below message, sooner appt call back [phone] [facility] 08-01-2023 Instructions Sanam Gill PA-C - 08/01/2023 9:35 AM EDT PATIENT PREOPERATIVE INSTRUCTIONS Katherine Keith MD has scheduled you for your procedure at this surgery center: [facility] [place] Scheduling Office: [phone] [address] [place] [address]. Please read below carefully for your personalized instructions. Arrival Time for Surgery: - To obtain your arrival time for surgery, call your physician's office the day before your surgery. - If your surgery is scheduled for Friday, call the Friday before. Your surgeon s master scheduler will tell you what time to call the office. - If you have not reached the departmental master scheduler by 5 P.M., call [phone] after 5 P.M. the day before your [...] Advance Directive, please fax a copy to [phone] or email to for it to be [...] Sanam Gill PA-C documented in this encounter [facility] 08-01-2023 Telephone encounter Note Called patient to offer sooner surgery date Left message to return call to the office [facility] 07-14-2023 Telephone encounter Note Received, Reviewed [facility] Attending Physician Statement [employer] forms and need signed by Dr. Keith Sent to Dr. Keith via [employer] for signature Leave dates: 09/02/23-11/07/23 No Post op appt scheduled as of yet. Garcia Maldonado LPN [facility] 07-14-2023 Miscellaneous Notes Received, Reviewed [employer] Attending Physician Statement [employer] forms and need signed by Dr. Keith Sent to Dr. Keith via [email or web address] for signature Leave dates: 09/02/23-11/07/23 No Post op appt scheduled as of yet. Garcia Maldonado LPN documented in this encounter [facility] 06-12-2023 Miscellaneous Notes Neuro SPINE CARE COORDINATION QUICK NOTE Called patient to discuss disability paperwork. His PCP has completed his previous STD paperwork Patient is not scheduled for surgery until August. Discussed this office will be able to complete his disability paperwork postop Advised to reach out to his PCP to continue with disability until surgery. Patient states [facility] only needs office note. This office will fax over the office note from 04/30 No further questions. I received [employer] forms for LTD. I called patient to explain we don't complete LTD, but he stated that he is not currently working and have exhausted his STD. He states the form is due 06/12/23. Sending to CC. Oliver to review Received Attending Physician's Statement from [employer] . Sent via [employer] for processing. documented in this encounter [facility] 05-29-2023 Miscellaneous Notes Neuro SPINE CARE COORDINATION [...] phone call: 08/27 at 10 AM Nurse SEA Please schedule 2 week post op C [...] N/A TREK/MC N/A documented in this encounter [facility] 05-04-2023 History of Present illness Narrative Radiology [...] PATIENT PRESENTS WITH AN IMPLANTABLE OR ATTACHED GAS DISTRIBUTION SUPERVISOR: No RADIOLOGY DEPARTMENT: CT; Exam(s) Completed: Spine PERIPHERAL IV DATA: Not applicable SIGNED BY: RT Eliseo(R) May 04, 2023 8:09 AM documented in this encounter [facility] 05-04-2023 Note HNO ID: [id number] Author: BLANCA PRICE RT(R) Service: Radiology Author [...] PATIENT PRESENTS WITH AN IMPLANTABLE OR ATTACHED GAS DISTRIBUTION SUPERVISOR: No RADIOLOGY DEPARTMENT: CT; Exam(s) Completed: Spine PERIPHERAL IV DATA: Not applicable SIGNED BY: MARY Gomes) May 04, 2023 8:09 AM [facility] 04-30-2023 History of Present illness Narrative Radiology [...] PATIENT PRESENTS WITH AN IMPLANTABLE OR ATTACHED GAS DISTRIBUTION SUPERVISOR: No RADIOLOGY DEPARTMENT: General X-ray: Exam(s) Completed: Spine X-Ray(s): Scoliosis Series PERIPHERAL IV DATA: Not applicable SIGNED BY: MARY Choi) April 30, 2023 1:42 PM documented in this encounter [facility] 04-30-2023 History of Present illness Narrative Images [...] Ester Cain MD REFERRING PROVIDER: Tobi Angeles [id number] [facility] [place] [id number] Consult requested for an opinion regarding the [...] this note. Jan Leon MD Fellow SIGNATURE: Kathernie Keith MD PATIENT NAME: Braden Rodriguez DATE: April 30, 2023 TIME: 11:51 AM PAGER: documented in this encounter [facility] 04-30-2023 History of Present illness Narrative Radiology [...] PATIENT PRESENTS WITH AN IMPLANTABLE OR ATTACHED GAS DISTRIBUTION SUPERVISOR: No RADIOLOGY DEPARTMENT: General X-ray: Exam(s) Completed: Spine X-Ray(s): Lumbar AP / LAT / L5-S1 / FLEX-EXT PERIPHERAL IV DATA: Not applicable SIGNED BY: RT Guillermo(R) April 30, 2023 10:47 AM documented in this encounter [facility] 03-21-2023 History of Present illness Narrative Requesting to see Dr. Keith Left leg pain, trouble walking, numbness in the leg, weakness. He has tried: PT, NSAID, steroids, MR, Tramadol Previous surgery x 3 at [facility] Lumbar MRI report with severe central stenosis of L3-4 and L4-5. XR ordered for an appointment with Dr. Keith. Patient name: Braden Rodriguez Are you being referred by a [place] for Spine Health Provider or Pain Management Provider at [facility]? No If answer is YES please [...] where the MRI/CT/myelogram was completed: MRI [facility] [address] [place] [address] MRI/CT/myelogram viewable in Epic: No If not, please provide [phone] to fax in imaging reports for review. Also, please inform patient to hand carry imaging disc to appointment. XR (spine) within 12 months: Yes If YES, please ask for the name/address of the facility where the XR was completed: Dr. Tobi Angeles MD [address], [place] [address] Dr. Davis's patients: Have you had previous [...] Starting PT 03/20/2023 for drop foot [facility] [place] [address] [place] [address] Have you tried any other kinds of [...] where the surgery was completed: 1999 laminectomy [facility] 2012 lumbar surgery [facility] 2019 lumbar surgery [facility] Additional Comments [phone] documented in this encounter [facility] 12-05-2022 Hospital Discharge instructions Patient Education 12/05/2022 [...] treatment? Where to find more information [employer] [place] [employer]: www.cancer.org [place] [employer]: www.auanet.org Contact a health care [...] Document Reviewed: 08/20/2021 Elsevier Patient Education 2022 Music Messenger (MM). Follow Up Care 11/27/2022 14:43:00 With:Kahlil JERNIGAN, MARLENA Salmon, URO Address: When: Unknown [facility] 10-30-2022 Hospital Discharge instructions Patient Education 10/30/2022 [...] treatment? Where to find more information [employer] [place] [employer]: www.cancer.org [place] [employer]: www.auanet.org Contact a health care [...] provider. Document Revised: 08/20/2021 Document Reviewed: 08/20/2021 [employer] Patient Education 2022 [employer] Follow Up Care 09/04/2022 08:48:35 With:Kahlil JERNIGAN, MARLENA Salmon, URO Address: When:Within 2 Month(s) Comments:w/PSA [facility] 09-04-2022 Hospital Discharge instructions Patient Education 09/04/2022 [...] treatment? Where to find more information The [place] [employer]: www.cancer.org [place] [employer]: www.auanet.org Contact a health care [...] provider. Document Revised: 08/20/2021 Document Reviewed: 08/20/2021 [employer] Patient Education 2022 Music Messenger (MM). Follow Up Care 08/26/2022 10:02:45 With:Kahlil JERNIGAN, Shae Powell, URL, URO Address: When:Within 4 Week(s) Comments:w/ PSA [facility] 05-07-2022 Hospital Discharge instructions Follow Up Care 05/07/2022 15:08:01 With:Camryn AGUSTIN MD, SUR Address: [address] [place] [address] [place] [address]- When: only if needed General Surgery [place] Evaluation + Plan note No data available for this section General Surgery [place] Evaluation + Plan note Future Appointments Appointment Date:05/21/2022 02:40:00 PM Scheduled Provider:Camryn AGUSTIN MD Location:[facility] Appointment Type: Post Op 15 General Surgery Javed Evaluation + Plan note Future Appointments Appointment Date:09/24/2022 01:40:00 PM Scheduled Provider:Camryn AGUSTIN MD Location:[facility] Appointment Type: Established 15 Appointment Date:09/25/2022 08:45:00 AM Scheduled Provider:Shae Guillory MD Location:[facility] Appointment Type:URO Office Visit Diagnostic Tests PendingPSA Total 09/04/22PSA Free & Total 09/04/22 [facility] Evaluation + Plan note Future Appointments Appointment Date:01/08/2023 09:00:00 AM Scheduled Provider:Shae Guillory MD Location:[facility] Appointment Type:URO Office Visit Diagnostic Tests PendingPSA Free & Total 10/30/22 [facility] Evaluation + Plan note Future Appointments Appointment Date:04/23/2023 09:45:00 AM Scheduled Provider:Shae Guillory MD Location:[facility] Appointment Type:URO Office Visit Diagnostic Tests PendingPSA Free & Total 12/05/22 [facility] Evaluation note No assessment inform ation available [facility] Work Phone: Evaluation note Diagnosis Spinal stenosis, lumbar region with neurogenic claudication- Primary [facility] Diagnosis History of lumbar laminectomy for spinal cord decompression Other postprocedural status Degenerative scoliosis in adult patient Chronic low back pain, unspecified back pain laterality, unspecified whether sciatica present [facility] Diagnosis Spinal stenosis, lumbar region with neurogenic claudication [facility] Diagnosis Chronic low back pain, unspecified back pain laterality, unspecified whether sciatica present [facility] Diagnosis History of lumbar laminectomy for spinal cord decompression- Primary Other postprocedural status Degenerative scoliosis in adult patient Chronic low back pain, unspecified back pain laterality, unspecified whether sciatica present [facility] Diagnosis History of laminectomy- Primary Other postprocedural status Degenerative scoliosis in adult patient Pre-op testing Preoperative examination, unspecified Iron deficiency anemia, unspecified iron deficiency anemia type History of laminectomy Other postprocedural status Degenerative scoliosis in adult patient Pre-op testing Preoperative examination, unspecified [facility] Diagnosis Pre-op exam- Primary Preoperative examination, unspecified Primary hypertension Unspecified essential hypertension SVT (supraventricular tachycardia) (HCC) Other specified cardiac dysrhythmias History of penicillin allergy Personal history of allergy to penicillin History of laminectomy Other postprocedural status Degenerative scoliosis in adult patient Pre-op testing Preoperative examination, unspecified [facility] Diagnosis Acute post-operative pain [facility] Diagnosis Acute post-operative pain [facility] Diagnosis Acute post-operative pain [facility] Diagnosis S/P lumbar fusion- Primary Arthrodesis status [facility] Diagnosis S/P lumbar spinal fusion- Primary Arthrodesis status Pre-op testing Preoperative examination, unspecified S/P lumbar spinal fusion Arthrodesis status [facility] Diagnosis S/P lumbar fusion Arthrodesis status S/P lumbar spinal fusion Arthrodesis status [facility] Diagnosis S/P lumbar spinal fusion- Primary Arthrodesis status S/P lumbar spinal fusion Arthrodesis status [facility] Diagnosis Post-op pain- Primary Other acute postoperative pain [facility] [facility] Diagnosis Post-op pain Other acute postoperative pain [facility] Diagnosis Right leg weakness- Primary Other musculoskeletal symptoms referable to limbs S/P lumbar fusion Arthrodesis status documented [facility] Diagnosis Post-op pain Other acute postoperative pain documented [facility] Diagnosis Acute post-operative pain SVT (supraventricular [...] acute postoperative pain [facility] Diagnosis Acute post-operative pain SVT (supraventricular [...] acute postoperative pain [facility] Diagnosis Acute post-operative pain SVT (supraventricular [...] in adult patient [facility] Diagnosis Acute post-operative pain SVT (supraventricular [...] whether sciatica present [facility] Diagnosis Acute post-operative pain SVT (supraventricular [...] referable to limbs [facility] Diagnosis Acute post-operative pain SVT (supraventricular [...] of treatment, sequela [facility] Diagnosis Acute post-operative pain SVT (supraventricular [...] of treatment, sequela [facility] Acute post-operative pain SVT [...] whether sciatica present [facility] Diagnosis Acute post-operative pain SVT (supraventricular [...] malaise and fatigue [facility] Diagnosis Acute post-operative pain SVT (supraventricular [...] in cervical region [facility] Diagnosis Acute post-operative pain SVT (supraventricular [...] in cervical region [facility] Diagnosis Acute post-operative pain SVT (supraventricular [...] in cervical region [facility] Diagnosis Acute post-operative pain SVT (supraventricular [...] in cervical region [facility] Diagnosis Acute post-operative pain SVT (supraventricular [...] in cervical region [facility] Diagnosis Acute post-operative pain SVT (supraventricular [...] in cervical region [facility] Diagnosis Acute post-operative pain SVT (supraventricular [...] in cervical region [facility] Diagnosis Acute post-operative pain Scoliosis of [...] abnormal blood chemistry documented [facility] Diagnosis Acute post-operative pain Scoliosis of [...] removal of sutures [facility] Diagnosis Acute post-operative pain Scoliosis of [...] acute postoperative pain [facility] Diagnosis Acute post-operative pain Scoliosis of [...] acute postoperative pain [facility] Diagnosis Acute post-operative pain Scoliosis of [...] fusion Arthrodesis status documented in this encounter [facility] note* Diagnosis Acute post-operative pain Scoliosis of [...] Primary Arthrodesis status documented in this encounter [facility] Discharge instructions No data available for this section General Surgery [employer] note No data available for this section General Surgery [employer] Reason for referral (narrative)* Diagnostic Procedure Only (Routine) - Pending Review Specialty Diagnoses / Procedures Referred By Contac t Referred To Contact XR IMAGING Diagnoses Spinal stenosis, lumbar region with neurogenic claudication Procedures XR LUMBAR MOTION 4V AP/LAT/ FLEX/EXT RADEX SPINE LUMBOSACRAL MINIMUM 4 VIEWS Alfonso Loyd PA-C [address] [place] [address] [place] [address] Referral ID Status Reason Start Date Expiration Date Visits Requested Visits Authorized [id number] Pending Review Auto-Generat ed Referral 03/21/2023 04/19/2024 1 1 [facility] for referral (narrative)* Diagnostic Procedure [...] W/SKULL 2/3 VW Katherine Keith MD [address] [place] [phone] Xr Imaging [facility] Referral ID Status Reason Start Date Expiration Date V isits Requested Visits Authorized [id number] Closed Auto-Generate d Referral 04/30/2023 05/29/2024 1 1 [facility] for referral (narrative)* Diagnostic Procedure Only (Routine) - Closed Specialty Diagnoses / Procedures Referred By Contac t Referred To Contact XR IMAGING Diagnoses Spinal stenosis, lumbar region with neurogenic claudication Procedures XR LUMBAR MOTION 4V AP/LAT/ FLEX/EXT RADEX SPINE LUMBOSACRAL MINIMUM 4 VIEWS Alfonso Loyd PA-C [address] [place] [address] [place] [address] Referral ID Status Reason Start Date Expiration Date V isits Requested Visits Authorized [id number] Closed Auto-Generate d Referral 03/21/2023 04/19/2024 1 1 [facility] for referral (narrative)* Outpatient Procedure (Routine) - Pending Review Specialty Diagnoses / Procedures Referred By Contac t Referred To Contact [facility] Diagnoses Pre-op exam Procedures ECG COMPLETE ECG ROUTINE ECG W/LEAST 12 LDS W/I&R Sanam Gill PA-C [address] [place] [address] [facility] [place] [address] [place] [address] Referral ID Status Reason Start Date Expiration Date Visits Requested Visits Authorized [id number] Pending Review Auto-Generat ed Referral 08/06/2023 08/05/2024 1 1 [facility] for referral (narrative)* Diagnostic Procedure Only (Routine) - Closed Specialty Diagnoses / Procedures Referred By Lencho t Referred To Contact XR IMAGING Diagnoses History of laminectomy Degenerative scoliosis in adult patient Procedures XR LUMBAR LIMITED 2V AP/LAT RADEX SPINE LUMBOSACRAL 2/3 VIEWS Alfonso Loyd PA-C [address] [place] [address] Xr Imaging [facility] Referral ID Status Reason Start Date Expiration Date V isits Requested Visits Authorized [id number] Closed Auto-Generate d Referral 07/11/2023 08/09/2024 1 1 [facility] for referral (narrative)* Outpatient Procedure (Routine) - Pending Review Specialty Diagnoses / Procedures Referred By Contac t Referred To Contact [facility] Diagnoses Adverse effect of treatment, sequela Procedures EMG(NEURO/NI) NERVE CONDUCTION STUDIES 9-10 STUDIES Katherine Keith MD [address] [place] [address] [facility] [place] [address] [place] [address] Referral ID Status Reason Start Date Expiration Date Visits Requested Visits Authorized [id number] Pending Review Auto-Generat ed Referral 11/12/2023 11/11/2024 1 1 * MRI/CT (Routine) - Authorized Specialty Diagnoses / Procedures Referred By Contac t Referred To Contact CT IMAGING Diagnoses Acute low back pain, unspecified back pain laterality, unspecified whether sciatica present Procedures CT LUMBAR SPINE WO IVCON CT LUMBAR SPINE W/O CONTRAST MATERIAL Katherine Keith MD [phone] Imaging [facility] Referral ID Status Reason Start Date Expiration Date Visits Requested Visits Authorized [id number] Authorized Auto-Generat ed Referral 11/12/2023 12/11/2024 1 1 * MRI/CT (Routine) - Authorized Specialty Diagnoses / Procedures Referred By Contac t Referred To Contact MR IMAGING Diagnoses Adverse effect of treatment, sequela Procedures MRI LUMBAR SPINE WO IVCON MRI SPINAL CANAL LUMBAR W/O CONTRAST MATERIAL Katherine Keith MD [address] [place] [address] Mr Imaging [facility] Referral ID Status Reason Start Date Expiration Date Visits Requested Visits Authorized [id number] Authorized Auto-Generat ed Referral 11/12/2023 12/11/2024 1 1 * MRI/CT (Routine) - Authorized Specialty Diagnoses / Procedures Referred By Contac t Referred To Contact MR IMAGING Diagnoses Adverse effect of treatment, sequela Procedures MRI THORACIC SPINE WO IVCON MRI SPINAL CANAL THORACIC W/O CONTRAST MATRL Katherine Keith MD [address] [place] [address] Mr Imaging [facility] Referral ID Status Reason Start Date Expiration Date Visits Requested Visits Authorized [id number] Authorized Auto-Generat ed Referral 11/12/2023 12/11/2024 1 1 [facility] for referral (narrative)* Diagnostic Procedure Only (Routine) - Closed Specialty Diagnoses / Procedures Referred By Contac t Referred To Contact MR IMAGING Diagnoses Spinal stenosis of cervical region Procedures MRI CERVICAL SPINE WO IVCON MRI SPINAL CANAL CERVICAL W/O CONTRAST MATRL Alfonso Loyd PA-C [address] [place] [address] Mr Imaging [place] [address] Referral ID Status Reason Start Date Expiration Date V isits Requested Visits Authorized [id number] Closed Auto-Generate d Referral 02/21/2024 03/09/2024 1 1 [facility] for referral (narrative)No reason for [facility]: Reason for visit Narrative* MRI/CT (Routine) - Closed Specialty Diagnoses / Procedures Referred By Contac t Referred To Contact CT IMAGING Diagnoses Spinal stenosis of cervical region Procedures CT CERVICAL SPINE WO IVCON CT CERVICAL SPINE W/O CONTRAST MATERIAL Katherine Keith MD [address] [place] [address] Phone: tel: fax: CT IMAGING [facility] Referral ID Status Reason Start Date Expiration Date V isits Requested Visits Authorized [id number] Closed Auto-Generate d Referral 05/14/2024 03/09/2025 1 1 [facility] Summary Purpose Family History No Family History Records FoundNo Family History Records FoundNo Family History Records FoundNo Family History Records Found No data available for this section No Family History Records Found No data available for this section No data available for this section No [...] I73.9 R09.89 September 27, 2024 1:1 4pm Chief Complaint Admit Date L98.491 I73.9 R09.89 September 27, 2024 1:1 4pm Ref by [place], absent pulses chronic ulc er of skin October 06, 2024 10:18am Reason for Referral Specialty Diagnoses / Procedures Referred By Contac t Referred To Contact MR IMAGING Diagnoses Spinal stenosis of cervical region Procedures MRI CERVICAL SPINE WO IVCON MRI SPINAL CANAL CERVICAL W/O CONTRAST Alfonso Campos PA-C [address] [place] [phone] Mr Imaging [place] [address] Referral ID Status Reason Start Date Expiration Date Visits Requested Visits Authorized [id number] New Request Auto-Generat ed Referral 03/04/2025 1 1 Specialty Diagnoses / Procedures Referred By Contac t Referred To Contact CT IMAGING Diagnoses Acute low back pain, unspecified back pain laterality, unspecified whether sciatica present Procedures CT LUMBAR SPINE WO IVCON CT LUMBAR SPINE W/O CONTRAST MATERIAL Katherine Keith MD [phone] Imaging [facility] Referral ID Status Reason Start Date Expiration Date V isits Requested Visits Authorized [id number] Closed Auto-Generate d Referral 11/12/2023 12/11/2024 1 1 Specialty Diagnoses / Procedures Referred By Contac t Referred To Contact MR IMAGING Diagnoses Adverse effect of treatment, sequela Procedures MRI LUMBAR SPINE WO IVCON MRI SPINAL CANAL LUMBAR W/O CONTRAST MATERIAL Katherine Keith MD [address] [place] [address] Mr Imaging [facility] Referral ID Status Reason Start Date Expiration Date V isits Requested Visits Authorized [id number] Closed Auto-Generate d Referral 11/12/2023 12/11/2024 1 1 Specialty Diagnoses / Procedures Referred By Contac t Referred To Contact [facility] Diagnoses Right leg weakness S/P lumbar fusion Procedures CONSULT TO PHYSICAL THERAPY PHYSICAL THERAPY EVALUATION [facility] 45 MINS Alfonso Loyd PA-C [address] [place] [phone] [facility] [place] [address] [place], [place] [id number] Referral ID Status Reason Start Date Expiration Date Visits Requested Visits Authorized [id number] Pending Review Auto-Generat ed Referral 10/21/2023 10/20/2024 1 1 Specialty Diagnoses / Procedures Referred By Contac t Referred To Contact Diagnoses History of laminectomy Degenerative scoliosis in adult patient Pre-op testing Procedures REFER TO [facility]ACC - PRE ANESTHESIA CONSULTATION CLINIC OFFICE/OUTPATIENT [facility] 60 MINUTES Alfonso Loyd PA-C [address] [place] [address] Referral ID Status Reason Start Date Expiration Date Visits Requested Visits Authorized [id number] Authorized PCP Requested Referral 07/11/2023 07/10/2024 1 1 Specialty Diagnoses / Procedures Referred By Contac t Referred To Contact XR IMAGING Diagnoses History of laminectomy Degenerative scoliosis in adult patient Procedures XR LUMBAR LIMITED 2V AP/LAT RADEX SPINE LUMBOSACRAL 2/3 VIEWS Alfonso Loyd PA-C [address] [place] [address] Xr Imaging [place] [address] Referral ID Status Reason Start Date Expiration Date Visits Requested Visits Authorized [id number] Pending Review Auto-Generat ed Referral 07/11/2023 08/09/2024 1 1 Specialty Diagnoses / Procedures Referred By Contac t Referred To Contact [facility] Diagnoses History of lumbar laminectomy for spinal cord decompression Degenerative scoliosis in adult patient Chronic low back pain, unspecified back pain laterality, unspecified whether sciatica present Procedures EMG(NEURO/NI) NERVE CONDUCTION STUDIES 9-10 STUDIES Katherine Keith MD [address] [place] [address] [facility] [place] [address] [place], [place] [phone] Referral ID Status Reason Start Date Expiration Date Visits Requested Visits Authorized [id number] Authorized Auto-Generat ed Referral 05/06/2023 03/09/2024 1 1 Specialty Diagnoses / Procedures Referred By Contac t Referred To Contact CT IMAGING Diagnoses Chronic low back pain, unspecified back pain laterality, unspecified whether sciatica present Procedures CT LUMBAR SPINE WO IVCON CT LUMBAR SPINE W/O CONTRAST MATERIAL Katherine Keith MD [address] [place] [address] Ct Imaging [place] [address] Referral ID Status Reason Start Date Expiration Date V isits Requested Visits Authorized [id number] Closed Auto-Generate d Referral 04/30/2023 05/29/2024 1 [...] SPI W/SKULL 2/3 VW Katherine Keith MD [address] [place] [address] Xr Imaging [place] [address] Referral ID Status Reason Start Date Expiration Date V isits Requested Visits Authorized [id number] Closed Auto-Generate d Referral 04/30/2023 05/29/2024 1 1 Specialty Diagnoses / Procedures Referred By Contac t Referred To Contact CT IMAGING Diagnoses Chronic low back pain, unspecified back pain laterality, unspecified whether sciatica present Procedures CT LUMBAR SPINE WO IVCON CT LUMBAR SPINE W/O CONTRAST MATERIAL Katherine Keith MD [address] [place] [address] Ct Imaging [facility] Referral ID Status Reason Start Date Expiration Date V isits Requested Visits Authorized [id number] Closed Auto-Generate d Referral 04/30/2023 05/29/2024 1 1 Additional Source Comments (unrecognized sect ion and content) No Status Records FoundNo Status Records FoundNo Status Records FoundNo Status Records FoundNo Status Records FoundNo Status Records FoundNo Status Records FoundNo Status Records FoundNo Status Records FoundNo Status Records Found INFORMATION SOURCE (unrecogn ized section and content) DATE CREATED AUTHOR 05/16/2020 [facility] DATE CREATED AUTHOR AUTHOR'S ORGANIZ ATION 09/06/2020 [facility] DATE CREATED AUTHOR AUTHOR'S ORGANIZ ATION 05/18/2022 [facility] DATE CREATED AUTHOR AUTHOR'S ORGANIZ ATION 06/13/2022 [facility] DATE CREATED AUTHOR AUTHOR'S ORGANIZ ATION 08/18/2023 [facility] DATE CREATED AUTHOR AUTHOR'S ORGANIZ ATION 05/16/2024 [facility] DATE CREATED AUTHOR AUTHOR'S ORGANIZ ATION 07/17/2024 [facility] DATE CREATED AUTHOR AUTHOR'S ORGANIZ ATION 10/02/2024 [facility] DATE CREATED AUTHOR AUTHOR'S ORGANIZ ATION 10/08/2024 [facility] DATE CREATED AUTHOR AUTHOR'S ORGANIZ ATION 10/31/2024 [facility] Patient Care team informatio n (unrecognized section and content) Team Status: Active Member Role Status Dates Ester Cain MD Primary Care Provider Active Team Status: Inactive Member Role Status Dates Ester Cain MD Primary Care Provider Active Shae Guillory MD Attending Provider Active [employer] Relationship Specialty Start Date End Date Ester Cain MD PCP - General 05/05/06 [employer] Relationship Specialty Start Date End Date Ester Cain MD PCP - General 05/05/06 [employer] Relationship Specialty Start Date End Date Ester Cain MD PCP - General 05/05/06 [employer] Relationship Specialty Start Date End Date Ester Cain MD PCP - General 05/05/06 [employer] Relationship Specialty Start Date End Date Ester Cain MD PCP - General 05/05/06 [employer] Relationship Specialty Start Date End Date Ester Cain MD PCP - General 05/05/06 [employer] Relationship Specialty Start Date End Date Ester Cain MD PCP - General 05/05/06 [employer] Relationship Specialty Start Date End Date Ester Cain MD PCP - General 05/05/06 [employer] Relationship Specialty Start Date End Date Ester Cain MD PCP - General 05/05/06 [employer] Relationship Specialty Start Date End Date Ester Cain MD PCP - General 05/05/06 [employer] Relationship Specialty Start Date End Date Ester Cain MD PCP - General 05/05/06 [employer] Relationship Specialty Start Date End Date Ester Cain MD PCP - General 05/05/06 [employer] Relationship Specialty Start Date End Date Ester Cain MD PCP - General 05/05/06 [employer] Relationship Specialty Start Date End Date Ester Cain MD PCP - General 05/05/06 [employer] Relationship Specialty Start Date End Date Ester Cain MD PCP - General 05/05/06 [employer] Relationship Specialty Start Date End Date Ester Cain MD PCP - General 05/05/06 [employer] Relationship Specialty Start Date End Date Ester Cain MD PCP - General 05/05/06 [employer] Relationship Specialty Start Date End Date Ester Cain MD PCP - General 05/05/06 [employer] Relationship Specialty Start Date End Date Ester Cain MD PCP - General 05/05/06 Katherine Keith Md, [facility] 09/07/23 [employer] Relationship Specialty Start Date End Date Ester Cain MD PCP - General 05/05/06 Katherine Keith Md, [facility] 09/07/23 [employer] Relationship Specialty Start Date End Date Ester Cain MD PCP - General 05/05/06 Katherine Keith Md, [facility] 09/07/23 [employer] Relationship Specialty Start Date End Date Ester Cain MD PCP - General 05/05/06 Katherine Keith Md, [facility] 09/07/23 [employer] Relationship Specialty Start Date End Date Ester Cain MD PCP - General 05/05/06 Katherine Keith Md, [facility] 09/07/23 [employer] Relationship Specialty Start Date End Date Ester Cain MD PCP - General 05/05/06 Katherine Keith Md, [facility] 09/07/23 [employer] Relationship Specialty Start Date End Date Ester Cain MD PCP - General 05/05/06 Katherine Keith Md, [facility] 09/07/23 [employer] Relationship Specialty Start Date End Date Ester Cain MD PCP - General 05/05/06 Katherine Keith Md, [facility] 09/07/23 [employer] Relationship Specialty Start Date End Date Ester Cain MD PCP - General 05/05/06 Katherine Keith Md, [facility] 09/07/23 [employer] Relationship Specialty Start Date End Date Ester Cain MD PCP - General 05/05/06 Katherine Keith Md, [facility] 09/07/23 [employer] Relationship Specialty Start Date End Date Ester Cain MD PCP - General 05/05/06 Katherine Keith Md, [facility] 09/07/23 [employer] Relationship Specialty Start Date End Date Ester Cain MD PCP - General 05/05/06 Katherine Keith Md, [facility] 09/07/23 [employer] Relationship Specialty Start Date End Date Ester Cain MD PCP - General 05/05/06 Katherine Keith Md, [facility] 09/07/23 [employer] Relationship Specialty Start Date End Date Ester Cain MD PCP - General 05/05/06 Katherine Keith Md, MD [facility] 09/07/23 [employer] Relationship Specialty Start Date End Date Ester Cain MD PCP - General 05/05/06 Katherine Keith Md, [facility] 09/07/23 [employer] Relationship Specialty Start Date End Date Ester Cain MD PCP - General 05/05/06 Katherine Keith Md, MD [facility] 09/07/23 [employer] Relationship Specialty Start Date End Date Ester Cain MD PCP - General 05/05/06 Katherine Keith Md, [facility] 09/07/23 Team Status: Inactive Member Role Status Dates Ester Cain MD Primary Care Provider Active Start: November 26, 2023 End: November 26, 2023 Camryn Agustin MD [facility] Attending Provider Active Start: November 26, 2023 End: November 26, 2023 [employer] Relationship Specialty Start Date End Date Ester Cain MD PCP - General 05/05/06 Katherine Keith Md, [facility] 09/07/23 [employer] Relationship Specialty Start Date End Date Ester Cain MD PCP - General 05/05/06 Katherine Keith Md, [facility] 09/07/23 [employer] Relationship Specialty Start Date End Date Ester Cain MD PCP - General 05/05/06 Katherine Keith Md, MD [facility] 09/07/23 [employer] Relationship Specialty Start Date End Date Ester Cain MD PCP - General 05/05/06 Katherine Keith Md, MD [facility] 09/07/23 [employer] Relationship Specialty Start Date End Date Ester Cain MD PCP - General 05/05/06 Katherine Keith Md, [facility] 09/07/23 [employer] Relationship Specialty Start Date End Date Ester Cain MD PCP - General 05/05/06 Katherine Keith Md, MD [facility] 09/07/23 [employer] Relationship Specialty Start Date End Date Ester Cain MD PCP - General 05/05/06 Katherine Keith Md, MD [facility] 09/07/23 [employer] Relationship Specialty Start Date End Date Ester Cain MD PCP - General 05/05/06 Katherine Keith Md, MD [facility] 09/07/23 [employer] Relationship Specialty Start Date End Date Ester Cain MD PCP - General 05/05/06 Katherine Keith Md, [facility] 09/07/23 [employer] Relationship Specialty Start Date End Date Ester Cain MD PCP - General 05/05/06 Katherine Keith Md, [facility] 09/07/23 [employer] Relationship Specialty Start Date End Date Ester Cain MD PCP - General 05/05/06 Katherine Keith Md, MD [facility] 09/07/23 [employer] Relationship Specialty Start Date End Date Ester Cain MD PCP - General 05/05/06 Katherine Keith Md, MD [facility] 09/07/23 [employer] Relationship Specialty Start Date End Date Ester Cain MD PCP - General 05/05/06 Katherine Keith Md, [facility] 09/07/23 [employer] Relationship Specialty Start Date End Date Ester Cain MD PCP - General 05/05/06 Katherine Keith Md, [facility] 09/07/23 [employer] Relationship Specialty Start Date End Date Ester Cain MD PCP - General 05/05/06 Katherine Keith Md, [facility] 09/07/23 [employer] Relationship Specialty Start Date End Date Ester Cain MD PCP - General 05/05/06 Katherine Keith Md, [facility] 09/07/23 [employer] Relationship Specialty Start Date End Date Ester Cain MD PCP - General 05/05/06 Katherine Keith Md, [facility] 09/07/23 [employer] Relationship Specialty Start Date End Date Ester Cain MD PCP - General 05/05/06 Katherine Keith Md, [facility] 09/07/23 [employer] Relationship Specialty Start Date End Date Ester Cain MD PCP - General 05/05/06 Katherine Keith Md, [facility] 09/07/23 [employer] Relationship Specialty Start Date End Date Ester Cain MD PCP - General 05/05/06 Katherine Keith Md, [facility] 09/07/23 [employer] Relationship Specialty Start Date End Date Ester Cain MD PCP - General 05/05/06 Katherine Keith Md, [facility] 09/07/23 [employer] Engine [employer] Relationship Specialty Start Date End Date Ester Cain MD PCP - General 05/05/06 Katherine Keith Md, [facility] 09/07/23 [employer] Relationship Specialty Start Date End Date Ester Cain MD PCP - General 05/05/06 Katherine Keith Md, [facility] 09/07/23 [employer] Engine [employer] Relationship Specialty Start Date End Date Ester Cain MD PCP - General 05/05/06 Katherine Keith Md, [facility] 09/07/23 [employer] Relationship Specialty Start Date End Date Ester Cain MD [address] [place] [id number] PCP - General Family Medicine 09/08/24 Team Status: Inactive Member Role Status Dates Ester Cain MD Primary Care Provider Active Start: September 27, 2024 End: September 27, 2024 Mahamed R. Kubitz , DPM Attending Provider Active Start: September 27, 2024 End: September 27, 2024 Team Status: Inactive Member Role Status Dates Ester Cain MD Primary Care Provider Active Start: October 06, 2024 End: October 06, 2024 Citlali Black NP-C Attending Provider Active Start: October 06, 2024 End: October 06, 2024 [employer] Relationship Specialty Start Date End Date Ester Cain MD [address] [place] [id number] PCP - General Family Medicine 09/08/24 Goals (unrecognized section and content) Goals may be documented in a n alternate section Source Comments (unrecognize d section and content) In the event this informatio n is protected by the Federal Confidentiality of Alcohol and Drug Abuse Patient Records regulations: The Federal rules restrict any use of the information to criminally investigate or prosecute any alcohol or drug abuse patient.[facility]In the event this information is protected by the Federal Confidentiality of Alcohol and Drug Abuse Patient Records regulations: The Federal rules restrict any use of the information to criminally investigate or prosecute any alcohol or drug abuse patient.[facility] CenterIn the event this information is protected by the Federal Confidentiality of Alcohol and Drug Abuse Patient Records regulations: The Federal rules restrict any use of the information to criminally investigate or prosecute any alcohol or drug abuse patient.[facility] CenterIn the event this information is protected by the Federal Confidentiality of Alcohol and Drug Abuse Patient Records regulations: The Federal rules restrict any use of the information to criminally investigate or prosecute any alcohol or drug abuse patient.[facility] CenterIn the event this information is protected by the Federal Confidentiality of Alcohol and Drug Abuse Patient Records regulations: The Federal rules restrict any use of the information to criminally investigate or prosecute any alcohol or drug abuse patient.[facility] CenterIn the event this information is protected by the Federal Confidentiality of Alcohol and Drug Abuse Patient Records regulations: The Federal rules restrict any use of the information to criminally investigate or prosecute any alcohol or drug abuse patient.[facility] CenterIn the event this information is protected by the Federal Confidentiality of Alcohol and Drug Abuse Patient Records regulations: The Federal rules restrict any use of the information to criminally investigate or prosecute any alcohol or drug abuse patient.[facility] CenterIn the event this information is protected by the Federal Confidentiality of Alcohol and Drug Abuse Patient Records regulations: The Federal rules restrict any use of the information to criminally investigate or prosecute any alcohol or drug abuse patient.[facility] CenterIn the event this information is protected by the Federal Confidentiality of Alcohol and Drug Abuse Patient Records regulations: The Federal rules restrict any use of the information to criminally investigate or prosecute any alcohol or drug abuse patient.[facility] CenterIn the event this information is protected by the Federal Confidentiality of Alcohol and Drug Abuse Patient Records regulations: The Federal rules restrict any use of the information to criminally investigate or prosecute any alcohol or drug abuse patient.[facility] CenterIn the event this information is protected by the Federal Confidentiality of Alcohol and Drug Abuse Patient Records regulations: The Federal rules restrict any use of the information to criminally investigate or prosecute any alcohol or drug abuse patient.[facility] CenterIn the event this information is protected by the Federal Confidentiality of Alcohol and Drug Abuse Patient Records regulations: The Federal rules restrict any use of the information to criminally investigate or prosecute any alcohol or drug abuse patient.[facility] CenterIn the event this information is protected by the Federal Confidentiality of Alcohol and Drug Abuse Patient Records regulations: The Federal rules restrict any use of the information to criminally investigate or prosecute any alcohol or drug abuse patient.[facility] CenterIn the event this information is protected by the Federal Confidentiality of Alcohol and Drug Abuse Patient Records regulations: The Federal rules restrict any use of the information to criminally investigate or prosecute any alcohol or drug abuse patient.[facility] CenterIn the event this information is protected by the Federal Confidentiality of Alcohol and Drug Abuse Patient Records regulations: The Federal rules restrict any use of the information to criminally investigate or prosecute any alcohol or drug abuse patient.[facility] CenterIn the event this information is protected by the Federal Confidentiality of Alcohol and Drug Abuse Patient Records regulations: The Federal rules restrict any use of the information to criminally investigate or prosecute any alcohol or drug abuse patient.[facility] CenterIn the event this information is protected by the Federal Confidentiality of Alcohol and Drug Abuse Patient Records regulations: The Federal rules restrict any use of the information to criminally investigate or prosecute any alcohol or drug abuse patient.[facility] CenterIn the event this information is protected by the Federal Confidentiality of Alcohol and Drug Abuse Patient Records regulations: The Federal rules restrict any use of the information to criminally investigate or prosecute any alcohol or drug abuse patient.[facility] CenterIn the event this information is protected by the Federal Confidentiality of Alcohol and Drug Abuse Patient Records regulations: The Federal rules restrict any use of the information to criminally investigate or prosecute any alcohol or drug abuse patient.[facility] CenterIn the event this information is protected by the Federal Confidentiality of Alcohol and Drug Abuse Patient Records regulations: The Federal rules restrict any use of the information to criminally investigate or prosecute any alcohol or drug abuse patient.[facility] CenterIn the event this information is protected by the Federal Confidentiality of Alcohol and Drug Abuse Patient Records regulations: The Federal rules restrict any use of the information to criminally investigate or prosecute any alcohol or drug abuse patient.[facility] CenterIn the event this information is protected by the Federal Confidentiality of Alcohol and Drug Abuse Patient Records regulations: The Federal rules restrict any use of the information to criminally investigate or prosecute any alcohol or drug abuse patient.[facility] CenterIn the event this information is protected by the Federal Confidentiality of Alcohol and Drug Abuse Patient Records regulations: The Federal rules restrict any use of the information to criminally investigate or prosecute any alcohol or drug abuse patient.[facility] CenterIn the event this information is protected by the Federal Confidentiality of Alcohol and Drug Abuse Patient Records regulations: The Federal rules restrict any use of the information to criminally investigate or prosecute any alcohol or drug abuse patient.[facility] CenterIn the event this information is protected by the Federal Confidentiality of Alcohol and Drug Abuse Patient Records regulations: The Federal rules restrict any use of the information to criminally investigate or prosecute any alcohol or drug abuse patient.[facility] CenterIn the event this information is protected by the Federal Confidentiality of Alcohol and Drug Abuse Patient Records regulations: The Federal rules restrict any use of the information to criminally investigate or prosecute any alcohol or drug abuse patient.[facility] CenterIn the event this information is protected by the Federal Confidentiality of Alcohol and Drug Abuse Patient Records regulations: The Federal rules restrict any use of the information to criminally investigate or prosecute any alcohol or drug abuse patient.[facility] CenterIn the event this information is protected by the Federal Confidentiality of Alcohol and Drug Abuse Patient Records regulations: The Federal rules restrict any use of the information to criminally investigate or prosecute any alcohol or drug abuse patient.[facility] CenterIn the event this information is protected by the Federal Confidentiality of Alcohol and Drug Abuse Patient Records regulations: The Federal rules restrict any use of the information to criminally investigate or prosecute any alcohol or drug abuse patient.[facility] CenterIn the event this information is protected by the Federal Confidentiality of Alcohol and Drug Abuse Patient Records regulations: The Federal rules restrict any use of the information to criminally investigate or prosecute any alcohol or drug abuse patient.[facility] CenterIn the event this information is protected by the Federal Confidentiality of Alcohol and Drug Abuse Patient Records regulations: The Federal rules restrict any use of the information to criminally investigate or prosecute any alcohol or drug abuse patient.[facility] CenterIn the event this information is protected by the Federal Confidentiality of Alcohol and Drug Abuse Patient Records regulations: The Federal rules restrict any use of the information to criminally investigate or prosecute any alcohol or drug abuse patient.[facility] CenterIn the event this information is protected by the Federal Confidentiality of Alcohol and Drug Abuse Patient Records regulations: The Federal rules restrict any use of the information to criminally investigate or prosecute any alcohol or drug abuse patient.[facility] CenterIn the event this information is protected by the Federal Confidentiality of Alcohol and Drug Abuse Patient Records regulations: The Federal rules restrict any use of the information to criminally investigate or prosecute any alcohol or drug abuse patient.[facility] CenterIn the event this information is protected by the Federal Confidentiality of Alcohol and Drug Abuse Patient Records regulations: The Federal rules restrict any use of the information to criminally investigate or prosecute any alcohol or drug abuse patient.[facility] CenterIn the event this information is protected by the Federal Confidentiality of Alcohol and Drug Abuse Patient Records regulations: The Federal rules restrict any use of the information to criminally investigate or prosecute any alcohol or drug abuse patient.[facility] CenterIn the event this information is protected by the Federal Confidentiality of Alcohol and Drug Abuse Patient Records regulations: The Federal rules restrict any use of the information to criminally investigate or prosecute any alcohol or drug abuse patient.[facility] CenterIn the event this information is protected by the Federal Confidentiality of Alcohol and Drug Abuse Patient Records regulations: The Federal rules restrict any use of the information to criminally investigate or prosecute any alcohol or drug abuse patient.[facility] CenterIn the event this information is protected by the Federal Confidentiality of Alcohol and Drug Abuse Patient Records regulations: The Federal rules restrict any use of the information to criminally investigate or prosecute any alcohol or drug abuse patient.[facility] CenterIn the event this information is protected by the Federal Confidentiality of Alcohol and Drug Abuse Patient Records regulations: The Federal rules restrict any use of the information to criminally investigate or prosecute any alcohol or drug abuse patient.[facility] CenterIn the event this information is protected by [...] or prosecute any alcohol or drug abuse patient.[facility] CenterIn the event this information is protected by the Federal Confidentiality of Alcohol and Drug Abuse Patient Records regulations: The Federal rules restrict any use of the information to criminally investigate or prosecute any alcohol or drug abuse patient.[facility] CenterIn the event this information is protected by the Federal Confidentiality of Alcohol and Drug Abuse Patient Records regulations: The Federal rules restrict any use of the information to criminally investigate or prosecute any alcohol or drug abuse patient.[facility] CenterIn the event this information is protected by the Federal Confidentiality of Alcohol and Drug Abuse Patient Records regulations: The Federal rules restrict any use of the information to criminally investigate or prosecute any alcohol or drug abuse patient.[facility] CenterIn the event this information is protected by the Federal Confidentiality of Alcohol and Drug Abuse Patient Records regulations: The Federal rules restrict any use of the information to criminally investigate or prosecute any alcohol or drug abuse patient.[facility] CenterIn the event this information is protected by the Federal Confidentiality of Alcohol and Drug Abuse Patient Records regulations: The Federal rules restrict any use of the information to criminally investigate or prosecute any alcohol or drug abuse patient.[facility] CenterIn the event this information is protected by the Federal Confidentiality of Alcohol and Drug Abuse Patient Records regulations: The Federal rules restrict any use of the information to criminally investigate or prosecute any alcohol or drug abuse patient.[facility] CenterIn the event this information is protected by the Federal Confidentiality of Alcohol and Drug Abuse Patient Records regulations: The Federal rules restrict any use of the information to criminally investigate or prosecute any alcohol or drug abuse patient.[facility] CenterIn the event this information is protected by the Federal Confidentiality of Alcohol and Drug Abuse Patient Records regulations: The Federal rules restrict any use of the information to criminally investigate or prosecute any alcohol or drug abuse patient.[facility] CenterIn the event this information is protected by the Federal Confidentiality of Alcohol and Drug Abuse Patient Records regulations: The Federal rules restrict any use of the information to criminally investigate or prosecute any alcohol or drug abuse patient.[facility] CenterIn the event this information is protected by the Federal Confidentiality of Alcohol and Drug Abuse Patient Records regulations: The Federal rules restrict any use of the information to criminally investigate or prosecute any alcohol or drug abuse patient.[facility] CenterIn the event this information is protected by the Federal Confidentiality of Alcohol and Drug Abuse Patient Records regulations: The Federal rules restrict any use of the information to criminally investigate or prosecute any alcohol or drug abuse patient.[facility] CenterIn the event this information is protected by the Federal Confidentiality of Alcohol and Drug Abuse Patient Records regulations: The Federal rules restrict any use of the information to criminally investigate or prosecute any alcohol or drug abuse patient.[facility] CenterIn the event this information is protected by the Federal Confidentiality of Alcohol and Drug Abuse Patient Records regulations: The Federal rules restrict any use of the information to criminally investigate or prosecute any alcohol or drug abuse patient.[facility] CenterIn the event this information is protected by the Federal Confidentiality of Alcohol and Drug Abuse Patient Records regulations: The Federal rules restrict any use of the information to criminally investigate or prosecute any alcohol or drug abuse patient.[facility] CenterIn the event this information is protected by the Federal Confidentiality of Alcohol and Drug Abuse Patient Records regulations: The Federal rules restrict any use of the information to criminally investigate or prosecute any alcohol or drug abuse patient.[facility] CenterIn the event this information is protected by the Federal Confidentiality of Alcohol and Drug Abuse Patient Records regulations: The Federal rules restrict any use of the information to criminally investigate or prosecute any alcohol or drug abuse patient.[facility] CenterIn the event this information is protected by the Federal Confidentiality of Alcohol and Drug Abuse Patient Records regulations: The Federal rules restrict any use of the information to criminally investigate or prosecute any alcohol or drug abuse patient.[facility] CenterIn the event this information is protected by the Federal Confidentiality of Alcohol and Drug Abuse Patient Records regulations: The Federal rules restrict any use of the information to criminally investigate or prosecute any alcohol or drug abuse patient.[facility] CenterIn the event this information is protected by the Federal Confidentiality of Alcohol and Drug Abuse Patient Records regulations: The Federal rules restrict any use of the information to criminally investigate or prosecute any alcohol or drug abuse patient.[facility] CenterIn the event this information is protected by the Federal Confidentiality of Alcohol and Drug Abuse Patient Records regulations: The Federal rules restrict any use of the information to criminally investigate or prosecute any alcohol or drug abuse patient.[facility] CenterIn the event this information is protected by the Federal Confidentiality of Alcohol and Drug Abuse Patient Records regulations: The Federal rules restrict any use of the information to criminally investigate or prosecute any alcohol or drug abuse patient.[facility] CenterIn the event this information is protected by the Federal Confidentiality of Alcohol and Drug Abuse Patient Records regulations: The Federal rules restrict any use of the information to criminally investigate or prosecute any alcohol or drug abuse patient.[facility] CenterIn the event this information is protected by the Federal Confidentiality of Alcohol and Drug Abuse Patient Records regulations: The Federal rules restrict any use of the information to criminally investigate or prosecute any alcohol or drug abuse patient.[facility] CenterIn the event this information is protected by the Federal Confidentiality of Alcohol and Drug Abuse Patient Records regulations: The Federal rules restrict any use of the information to criminally investigate or prosecute any alcohol or drug abuse patient.[facility] CenterIn the event this information is protected by the Federal Confidentiality of Alcohol and Drug Abuse Patient Records regulations: The Federal rules restrict any use of the information to criminally investigate or prosecute any alcohol or drug abuse patient.[facility] CenterIn the event this information is protected by the Federal Confidentiality of Alcohol and Drug Abuse Patient Records regulations: The Federal rules restrict any use of the information to criminally investigate or prosecute any alcohol or drug abuse patient.[facility] CenterIn the event this information is protected by the Federal Confidentiality of Alcohol and Drug Abuse Patient Records regulations: The Federal rules restrict any use of the information to criminally investigate or prosecute any alcohol or drug abuse patient.[facility] CenterIn the event this information is protected by the Federal Confidentiality of Alcohol and Drug Abuse Patient Records regulations: The Federal rules restrict any use of the information to criminally investigate or prosecute any alcohol or drug abuse patient.[facility] CenterIn the event this information is protected by the Federal Confidentiality of Alcohol and Drug Abuse Patient Records regulations: The Federal rules restrict any use of the information to criminally investigate or prosecute any alcohol or drug abuse patient.[facility] CenterIn the event this information is protected by the Federal Confidentiality of Alcohol and Drug Abuse Patient Records regulations: The Federal rules restrict any use of the information to criminally investigate or prosecute any alcohol or drug abuse patient.[facility] CenterIn the event this information is protected by the Federal Confidentiality of Alcohol and Drug Abuse Patient Records regulations: The Federal rules restrict any use of the information to criminally investigate or prosecute any alcohol or drug abuse patient.[facility] CenterIn the event this information is protected by the Federal Confidentiality of Alcohol and Drug Abuse Patient Records regulations: The Federal rules restrict any use of the information to criminally investigate or prosecute any alcohol or drug abuse patient.[facility] CenterIn the event this information is protected by the Federal Confidentiality of Alcohol and Drug Abuse Patient Records regulations: The Federal rules restrict any use of the information to criminally investigate or prosecute any alcohol or drug abuse patient.[facility] CenterIn the event this information is protected by the Federal Confidentiality of Alcohol and Drug Abuse Patient Records regulations: The Federal rules restrict any use of the information to criminally investigate or prosecute any alcohol or drug abuse patient.[facility] CenterIn the event this information is protected by the Federal Confidentiality of Alcohol and Drug Abuse Patient Records regulations: The Federal rules restrict any use of the information to criminally investigate or prosecute any alcohol or drug abuse patient.[facility] CenterIn the event this information is protected by the Federal Confidentiality of Alcohol and Drug Abuse Patient Records regulations: The Federal rules restrict any use of the information to criminally investigate or prosecute any alcohol or drug abuse patient.[facility] CenterIn the event this information is protected by the Federal Confidentiality of Alcohol and Drug Abuse Patient Records regulations: The Federal rules restrict any use of the information to criminally investigate or prosecute any alcohol or drug abuse patient.[facility] CenterIn the event this information is protected by the Federal Confidentiality of Alcohol and Drug Abuse Patient Records regulations: The Federal rules restrict any use of the information to criminally investigate or prosecute any alcohol or drug abuse patient.[facility] CenterIn the event this information is protected by the Federal Confidentiality of Alcohol and Drug Abuse Patient Records regulations: The Federal rules restrict any use of the information to criminally investigate or prosecute any alcohol or drug abuse patient.[facility] CenterIn the event this information is protected by the Federal Confidentiality of Alcohol and Drug Abuse Patient Records regulations: The Federal rules restrict any use of the information to criminally investigate or prosecute any alcohol or drug abuse patient.[facility] CenterIn the event this information is protected by the Federal Confidentiality of Alcohol and Drug Abuse Patient Records regulations: The Federal rules restrict any use of the information to criminally investigate or prosecute any alcohol or drug abuse patient.[facility] CenterIn the event this information is protected by the Federal Confidentiality of Alcohol and Drug Abuse Patient Records regulations: The Federal rules restrict any use of the information to criminally investigate or prosecute any alcohol or drug abuse patient.[facility] CenterIn the event this information is protected by the Federal Confidentiality of Alcohol and Drug Abuse Patient Records regulations: The Federal rules restrict any use of the information to criminally investigate or prosecute any alcohol or drug abuse patient.[facility] CenterIn the event this information is protected by the Federal Confidentiality of Alcohol and Drug Abuse Patient Records regulations: The Federal rules restrict any use of the information to criminally investigate or prosecute any alcohol or drug abuse patient.[facility] CenterIn the event this information is protected by the Federal Confidentiality of Alcohol and Drug Abuse Patient Records regulations: The Federal rules restrict any use of the information to criminally investigate or prosecute any alcohol or drug abuse patient.[facility] CenterIn the event this information is protected by the Federal Confidentiality of Alcohol and Drug Abuse Patient Records regulations: The Federal rules restrict any use of the information to criminally investigate or prosecute any alcohol or drug abuse patient.[facility] CenterIn the event this information is protected by the Federal Confidentiality of Alcohol and Drug Abuse Patient Records regulations: The Federal rules restrict any use of the information to criminally investigate or prosecute any alcohol or drug abuse patient.[facility] CenterIn the event this information is protected by the Federal Confidentiality of Alcohol and Drug Abuse Patient Records regulations: The Federal rules restrict any use of the information to criminally investigate or prosecute any alcohol or drug abuse patient.[facility] Reason for Visit (unrecogniz ed section and [...] LMBR CRV SAC SPI W/SKULL 2/3 Katherine Dover MD [address] [place] [address] [place] [address] Referral ID Status Reason Start Date Expiration Date V isits Requested Visits Authorized [id number] Closed Auto-Generate d Referral 04/30/2023 05/29/2024 1 1 Reason Comments Radio Main J1 Specialty Diagnoses / Procedures Referred By Contac t Referred To Contact XR IMAGING Diagnoses Spinal stenosis, lumbar region with neurogenic claudication Procedures XR LUMBAR MOTION 4V AP/LAT/ FLEX/EXT RADEX SPINE LUMBOSACRAL MINIMUM 4 VIEWS Alfonso Loyd, PA-C [address] [facility] [place] [phone] [place] [address] Referral ID Status Reason Start Date Expiration Date V isits Requested Visits Authorized [id number] Closed Auto-Generate d Referral 03/21/2023 04/19/2024 1 1 Specialty Diagnoses / Procedures Referred By Contac t Referred To Contact CT IMAGING Diagnoses Chronic low back pain, unspecified back pain laterality, unspecified whether sciatica present Procedures CT LUMBAR SPINE WO IVCON CT LUMBAR SPINE W/O CONTRAST MATERIAL Katherine Keith MD [address] [place] [address] Ct Imaging [facility] Referral ID Status Reason Start Date Expiration Date V isits Requested Visits Authorized [id number] Closed Auto-Generate d Referral 04/30/2023 05/29/2024 1 [...] AP/LAT RADEX SPINE LUMBOSACRAL 2/3 VIEWS Alfonso Loyd, PA-C [address] [place] [phone] Xr Imaging [facility] Referral ID Status Reason Start Date Expiration Date V isits Requested Visits Authorized [id number] Closed Auto-Generate d Referral 07/11/2023 08/09/2024 1 1 Reason Comments 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 Reason Onset Date Comments Refill Request 09/21/2023 Reason Comments Established Patient Follow Up Specialty Diagnoses / Procedures Referred By Contac t Referred To Contact MR IMAGING Diagnoses Adverse effect of treatment, sequela Procedures MRI LUMBAR SPINE WO IVCON MRI SPINAL CANAL LUMBAR W/O CONTRAST MATERIAL Katherine Keith MD [address] [place] [phone] [facility] [place] [address] Referral ID Status Reason Start Date Expiration Date V isits Requested Visits Authorized [id number] Closed Auto-Generate d Referral 11/12/2023 12/11/2024 1 1 Specialty Diagnoses / Procedures Referred By Contac t Referred To Contact MR IMAGING Diagnoses Adverse effect of treatment, sequela Procedures MRI THORACIC SPINE WO IVCON MRI SPINAL CANAL THORACIC W/O CONTRAST MATRL Katherine Keith MD [address] [place] [address] [facility] [place] [address] Referral ID Status Reason Start Date Expiration Date V isits Requested Visits Authorized [id number] Closed Auto-Generate d Referral 11/12/2023 12/11/2024 1 1 Specialty Diagnoses / Procedures Referred By Contac t Referred To Contact CT IMAGING Diagnoses Acute low back pain, unspecified back pain laterality, unspecified whether sciatica present Procedures CT LUMBAR SPINE WO IVCON CT LUMBAR SPINE W/O CONTRAST MATERIAL Katherine Keith MD [address] [place] [phone] Imaging [facility] Referral ID Status Reason Start Date Expiration Date V isits Requested Visits Authorized [id number] Closed Auto-Generate d Referral 11/12/2023 12/11/2024 1 1 Reason Onset Date Comments EMG 01/14/2024 Specialty Diagnoses / Procedures Referred By Contac t Referred To Contact [facility] Diagnoses Adverse effect of treatment, sequela Procedures [facility](NEURO/NI) NERVE CONDUCTION STUDIES 9-10 STUDIES Katherine Keith MD [address] [place] [phone] [facility] [place] [address] [place] [phone] Referral ID Status Reason Start Date Expiration Date V isits Requested Visits Authorized [id number] Closed Auto-Generate d Referral 01/13/2024 03/09/2024 1 1 Reason Comments Radiology MRI Specialty Diagnoses / Procedures Referred By Contac t Referred To Contact MR IMAGING Diagnoses Spinal stenosis of cervical region Procedures MRI CERVICAL SPINE WO IVCON MRI SPINAL CANAL CERVICAL W/O CONTRAST Alfonso Campos PA-C [address] [place] [address] [place] [address] Referral ID Status Reason Start Date Expiration Date V isits Requested Visits Authorized [id number] Closed Auto-Generate d Referral 02/21/2024 03/09/2024 1 [...] BE BASED ON THE PRIMARY CLINICAL RECORDS. [employer] provides no warranty or guarantee of the accuracy or completeness of information in this document.
== END 2024-11-03 12:47 | disposition home or self-care (01) ==
LOC: US 12:46
PROVIDERS: PCP Family Medicine; Visit Provider Family Medicine
DX: R60.0 Localized edema (principal); R60.9 Edema, unspecified
CPT/HCPCS: 93970

== ENCOUNTER 2024-11-05 13:35 | Outpatient (OUT) | payer OTHER, SELFPAY ==
--- OUTSIDE RECORDS SUMMARY | 2024-11-05 13:44 | XMS_ITS | CCD ---
Author Organization [facility] Care Team Providers Care English Lecturer Name Role Phone ESTER CAIN Referring Unavailable ESTER CAIN Primary Care Unavailable DOMENIC KOHLER Attending Unavailable DOMENIC KOHLER Admitting Unavailable Ester Cain Primary Care Physician [phone] Dr. Ester Cain Primary Care Unavail able [...] Unavailable MD Ester Cain Primary Care Provider [phone] MD Shae Guillory Attending Provider Ester Cain MD M Primary Care Provider [phone] Ester Cain MD M Primary Care Provider [phone] PELLE, KATHERINE Referring Unavailable HOY, ESTER M Primary Care Unavailable PELLE, KATHERINE Referring Unavailable HOY, ESTER M Primary Care Unavailable BONUS, ALFONSO M Referring Unavailable HOY, ESTER M Primary Care Unavailable Katherine Sagar JERNIGAN Md Unavailable Unavailable MD Ester Cain M Primary Care Provider [phone] MD Camryn Agustin Attending Provider PELLE, KATHERINE [...] Unavailable Ester Cain MD Primary Care Provider [phone] Ester Cain MD Primary Care Provider [phone] Mahamed Gray DPM Attending Provider Camryn Agustin Attending Unavailable Merliny, Ester M [...] sources) Penicillins Drug Allergy 7 Rash [facility] Repository (9 sources) Penicillin; Translations: [penicillin] Drug Allergy Eruption of skin (disorder) General Surgery [facility] (13 sources) Penicillins; Translations: [PENICILLINS] Drug allergy (disorder) 7 Rash [facility] Repository (20 sources) Penicillins Propensity to adverse reactions 7 Rash [facility] (20 sources) Methocarbamol; Translations: [methocarbamol] Drug Allergy 4 Patient reported problems (finding), Intolerance [facility] General Surgery Presho (15 sources) Penicillins Propensity to adverse reactions 7 Rash [facility] (1 source) Unable to Assess Drug allergy (disorder) 3 [facility] Repository (1 source) Methocarbamol Drug Allergy 5 [facility] (1 source) Penicillins Propensity to adverse reactions 5 Hives [facility] (1 source) No Known Medication Allergies; Translations: [No Known Medication Allergies] Propensity to adverse reactions (disorder) [facility] Repository Medications Current Medications Medication Drug Class(es) Dates Sig (Normalized) Sig (Original) acetaminophen 325 mg oral tablet (20 sources) Start: 10-04-2023 take 2 tablets enteral route every six hours as needed acetaminophen (TYLENOL) 325 mg tablet 2 tablets by ORAL/FEEDING TUBE route every 6 hours as needed for pain. 10/04/2023 Active Start: 08-22-2023 take 2 tablets by mo [facility] every four hours acetaminophen (TYLENOL) 325 mg [...] Active docusate sodium 50 mg / sennosides, snf 8.6 mg oral tablet (20 sources) Start: [...] 08/22/2023 08/29/2023 Discontinued take 1 capsule by [facility] every four hours as needed for pain [...] Will call again at later time. Normal [facility] US arterial pvr rest Coy US arterial pvr rest [facility] [place] [address] Ultrasound Report Signed Patient: Braden Rodriguez MR#: [id number] : 1955 Acct:[id number] Age/Sex: 69 / M ADM Date: 09/27/24 Loc: Room: Type: [facility] Attending Dr: Mahamed Gray DPM, Ordering Provider: [...] Zayas MD,FACS,FSVS 09/28/2024 7:56 AM Dictation Location: [place] [address] Tech: Shanai Aguilar Transcribed By: ERYN 09/28/24 075 Dictated By: Xander Zayas MD 09/28/24 0755 Signed By: 09/28/24 0756 [facility] CNOVon 06-16-2024 CNOV Normal [facility] CNPNon 06-11-2024 CNPN Normal [facility] 25(OH)D3 SerPl-mCncon 2024 25-hydroxyvitamin D3 [Mass/Vol] 42.5 ng/mL Normal 31.0-80.0 [facility] Comment on above: Order Comment: Speci men Type: BLOOD SPECIMENOrdering Facility: [facility] Address: [address] [place] [address] Result Comment: Clas sification of 25 OH Vitamin D status:Deficiency/Insufficiency: < or = 30 ng/ml.Sufficiency/Optimal Levels: 31-80 ng/mLToxicity: > 100 ng/mL.Test performed by chemiluminescent immunoassay. Performed By: #### 1 989-3 ####[facility] [id number] [address] [address] [place] CBC panel Auto (Bld)on 06-08 Erythrocyte distribution width (RBC) [Ratio] 12.7 % Normal 11.5-15.0 [facility] Comment on above: Order Comment: Speci men Type: BLOOD SPECIMENOrdering Facility: [facility] Address: [address] [place] [address] Performed By: #### 5 8410-2 ####[facility] [id number] [address] [place] Hematocrit (Bld) [Volume fraction] 40.4 % Normal 39.0-51.0 [facility] Comment on above: Order Comment: Speci men Type: BLOOD SPECIMENOrdering Facility: [facility] Address: [address] [place] [address] Performed By: #### 5 8410-2 ####[facility] [id number] [address] [place] Hemoglobin (Bld) [Mass/Vol] 13.2 g/dL Normal 13.0-17.0 [facility] Comment on above: Order Comment: Speci men Type: BLOOD SPECIMENOrdering Facility: [facility] Address: [address] [place] [address] Performed By: #### 5 8410-2 ####[facility] [id number] [place] [id number] [place] MCH (RBC) [Entitic mass] 30.9 pg Normal 26.0-34.0 [facility] Comment on above: Order Comment: Speci men Type: BLOOD SPECIMENOrdering Facility: [facility] Address: [address] [place] [address] Performed By: #### 5 8410-2 ####[facility] LABCLIA [id number] [place] [address] [place] MCHC (RBC) [Mass/Vol] 32.7 g/dL Normal 30.5-36.0 [facility] Comment on above: Order Comment: Speci men Type: BLOOD SPECIMENOrdering Facility: [facility] Address: [address] [place] [address] Performed By: #### 5 8410-2 ####[facility] LABIA [id number] [place] [address] [place] MCV (RBC) [Entitic vol] 94.6 fL Normal 80.0-100.0 [facility] Comment on above: Order Comment: Speci men Type: BLOOD SPECIMENOrdering Facility: [facility] Address: [address] [place] [address] Performed By: #### 5 8410-2 ####[facility] LABIA [id number] [place] [address] [place] Nucleated RBC (Bld) [#/Vol] 10*3/uL Normal <0.01 [facility] Comment on above: Order Comment: Speci men Type: BLOOD SPECIMENOrdering Facility: [facility] Address: [address] [place] [address] Performed By: #### 5 8410-2 ####[facility] LABIA [id number] [place] [address] [place] Platelet mean volume (Bld) [Entitic vol] 10.7 fL Normal 9.0-12.7 [facility] Comment on above: Order Comment: Speci men Type: BLOOD SPECIMENOrdering Facility: [facility] Address: [address] [place] [address] Performed By: #### 5 8410-2 ####[facility] LABIA [id number] [address] [address] [place] Platelets (Bld) [#/Vol] 277 10*3/uL Normal 150-400 [facility] Comment on above: Order Comment: Speci men Type: BLOOD SPECIMENOrdering Facility: [facility] Address: [address] [place] [address] Performed By: #### 5 8410-2 ####[facility] LABCLIA [id number] [place] [address] [place] RBC (Bld) [#/Vol] 4.27 10*6/uL Normal 4.20-6.00 [facility] Comment on above: Order Comment: Speci men Type: BLOOD SPECIMENOrdering Facility: [facility] Address: [address] [place] [address] Performed By: #### 5 8410-2 ####[facility] LABCLIA [id number] [place] [address] [place] WBC (Bld) [#/Vol] 8.97 10*3/uL Normal 3.70-11.00 [facility] Comment on above: Order Comment: Speci men Type: BLOOD SPECIMENOrdering Facility: [facility] Address: [address] [place] [address] Performed By: #### 5 8410-2 ####[facility] LABCLIA [id number] [place] [address] [place] CNDSon 06-08-2024 CNDS Normal [facility] Comprehensive metabolic 2000 panelon 06-08-2024 Albumin [Mass/Vol] 3.5 g/dL Low 3.9-4.9 [facility] Comment on above: Order Comment: Speci men Type: BLOOD SPECIMENOrdering Facility: [facility] Address: [address] [place] [address] Performed By: #### 1 9123-9, 38340-4, HSTNT, 2777-1 ####[facility] LABCLIA [id number] [place] [address] [place] ALP [Catalytic activity/Vol] 80 U/L Normal 38-113 [facility] Comment on above: Order Comment: Speci men Type: BLOOD SPECIMENOrdering Facility: [facility] Address: [address] [place] [address] Performed By: #### 1 9123-9, 66880-5, HSTNT, 2777-1 ####[facility] LABCLIA [id number] [place] [address] [place] ALT [Catalytic activity/Vol] 10 U/L Normal 10-54 [facility] Comment on above: Order Comment: Speci men Type: BLOOD SPECIMENOrdering Facility: [facility] Address: [address] [place] [address] Performed By: #### 1 9123-9, 32332-8, HSTNT, 277-1 ####[facility] LABCLIA [id number] [place] [address] [place] Anion gap [Moles/Vol] 13 mmol/L Normal 8-15 [facility] Comment on above: Order Comment: Speci men Type: BLOOD SPECIMENOrdering Facility: [facility] Address: [address] [place] [address] Performed By: #### 1 9123-9, 28723-6, HSTNT, 277-1 ####[facility] LABCLIA [id number] [place] [address] [place] AST [Catalytic activity/Vol] 25 U/L Normal 14-40 [facility] Comment on above: Order Comment: Speci men Type: BLOOD SPECIMENOrdering Facility: [facility] Address: [address] [place] [address] Result Comment: Resu lts may be falsely increased due to interference from hemolysis. Suggest reorder as clinically indicated. Performed By: #### 1 9123-9, 68024-5, HSTNT, 2777-1 ####[facility] LABCLIA [id number] [address] [address] [place] Bilirubin [Mass/Vol] 0.8 mg/dL Normal 0.2-1.3 [facility] Comment on above: Order Comment: Speci men Type: BLOOD SPECIMENOrdering Facility: [facility] Address: [address] [place] [address] Performed By: #### 1 9123-9, 50368-0, HSTNT, 277-1 ####[facility] LABCLIA [id number] [place] [id number] [place] Calcium [Mass/Vol] 9.5 mg/dL Normal 8.5-10.2 [facility] Comment on above: Order Comment: Speci men Type: BLOOD SPECIMENOrdering Facility: [facility] Address: [address] [place] [address] Performed By: #### 1 9123-9, 20745-3, HSTNT, 2776- ####[facility] LABCLIA [id number] [place] [id number] [place] Chloride [Moles/Vol] 106 mmol/L Normal 98-107 [facility] Comment on above: Order Comment: Speci men Type: BLOOD SPECIMENOrdering Facility: [facility] Address: [address] [place] [address] Performed By: #### 1 9123-9, 46214-7, HSTNT, 277- ####[facility] LABCLIA [id number] [address] [address] [place] CO2 [Moles/Vol] 24 mmol/L Normal 22-30 [facility] Comment on above: Order Comment: Speci men Type: BLOOD SPECIMENOrdering Facility: [facility] Address: [address] [place], [place] [address] Performed By: #### 1 9123-9, 96487-8, HSTNT, 277-1 ####[facility] LABCLIA [id number] [place] [address] [place] Creatinine [Mass/Vol] 0.76 mg/dL Normal 0.73-1.22 [facility] Comment on above: Order Comment: Speci men Type: BLOOD SPECIMENOrdering Facility: [facility] Address: [address] [place] [address] Performed By: #### 1 9123-9, 61602-5, T, 2777-1 ####[facility] LABIA [id number] [place] [address] [place] Creatinine and Glomerular filtration rate.predicted panel (S/P/Bld) 99 mL/min/1.73m??? Normal >=60 [facility] Comment on above: Order Comment: Roberto Carlos lion Type: BLOOD SPECIMENOrdering Facility: [facility] Address: [address] [place] [address] Result Comment: Yesica mated Glomerular Filtration Rate [...] actual GFR. Performed By: #### 1 9123-9, 19926-3, [facility], 277-1 ####[facility] LABIA [id number] [place] [id number] [place] Glucose [Mass/Vol] 90 mg/dL Normal 74-99 [facility] Comment on above: Order Comment: Speci men Type: BLOOD SPECIMENOrdering Facility: [facility] Address: [address] [place] [address] Result Comment: The [place] [employer] (ADA) provides guidance for cutoff [...] Standards of Medical Care in Diabetes 2016, [place] [employer]. Diabetes Care. 2016.39(Suppl 1). Performed By: #### 1 9123-9, 40447-1, HSTNT, 2776-1 ####[facility] LABCLIA [id number] [address] [address] [place] Potassium [Moles/Vol] 4.2 mmol/L Normal 3.7-5.1 [facility] Comment on above: Order Comment: Speci men Type: BLOOD SPECIMENOrdering Facility: [facility] Address: [address] [place] [address] Performed By: #### 1 9123-9, 38860-0, HSTNT, 2776- ####[facility] LABIA [id number] [place] [id number] [place] Protein [Mass/Vol] 6.1 g/dL Low 6.3-8.0 [facility] Comment on above: Order Comment: Speci men Type: BLOOD SPECIMENOrdering Facility: [facility] Address: [address] [place] [address] Performed By: #### 1 9123-9, 16897-1, HSTNT, 2776- ####[facility] LABCLIA [id number] [place] [id number] [place] Sodium [Moles/Vol] 143 mmol/L Normal 136-144 [facility] Comment on above: Order Comment: Speci men Type: BLOOD SPECIMENOrdering Facility: [facility] Address: [address] [place] [address] Performed By: #### 1 9123-9, 12055-4, HSTNT, 277- ####[facility] LABCLIA [id number] [address] [address] [place] Urea nitrogen [Mass/Vol] 16 mg/dL Normal 9-24 [facility] Comment on above: Order Comment: Speci men Type: BLOOD SPECIMENOrdering Facility: [facility] Address: [address] [place] [address] Performed By: #### 1 9123-9, 48722-6, HSTNT, 2777-1 ####[facility] LABCLIA [id number] [address] [address] [place] ECG COMPLETEon 06-08-2024 ECG COMPLETE Normal [facility] HIGH SENSITIVITY TROPONIN To n 06-08-2024 Troponin T.cardiac High sensitivity method [Mass/Vol] 28 ng/L High <12 [facility] Comment on above: Order Comment: Speci men Type: BLOOD SPECIMENOrdering Facility: [facility] Address: [address] [place] [address] Performed By: #### 1 9123-9, 90594-2, HSTNT, 2777-1 ####[facility] LABIA [id number] [place] [id number] [place] Magnesium SerPl-mCncon 06-08 Magnesium [Mass/Vol] 2.0 mg/dL Normal 1.7-2.3 [facility] Comment on above: Order Comment: Speci men Type: BLOOD SPECIMENOrdering Facility: [facility] Address: [address] [place] [address] Performed By: #### 1 9123-9, 91230-0, HSTNT, 2777-1 ####[facility] LABIA [id number] [place] [id number] [place] Phosphate SerPl-mCncon 06-08 Phosphate [Mass/Vol] 3.3 mg/dL Normal 2.7-4.8 [facility] Comment on above: Order Comment: Speci men Type: BLOOD SPECIMENOrdering Facility: [facility] Address: [address] [place] [address] Performed By: #### 1 9123-9, 63167-9, HSTNT, 2777-1 ####[facility] LABCLIA [id number] [place] [address] [place] CASE MANAGEMon 06-07-2024 CASE MANAGEM Normal [facility] CBC W Auto Differential pane l (Bld)on 06-07-2024 Basophils (Bld) [#/Vol] 0.06 10*3/uL Normal <0.11 [facility] Comment on above: Order Comment: Speci men Type: BLOOD SPECIMENOrdering Facility: [facility] Address: [address] [place] [address] Performed By: #### 5 7021-8 ####[facility] LABCLIA [id number] [place] [address] [place] Basophils/100 WBC (Bld) 0.6 % Normal [facility] Comment on above: Order Comment: Speci men Type: BLOOD SPECIMENOrdering Facility: [facility] Address: [address] [place] [address] Performed By: #### 5 7021-8 ####[facility] LABCLIA [id number] [place] [address] [place] Differential cell count method Nom (Bld) Auto Normal [facility] Comment on above: Order Comment: Speci men Type: BLOOD SPECIMENOrdering Facility: [facility] Address: [address] [place] [address] Performed By: #### 5 7021-8 ####[facility] LABCLIA [id number] [place] [address] [place] Eosinophils (Bld) [#/Vol] 0.32 10*3/uL Normal <0.46 [facility] Comment on above: Order Comment: Speci men Type: BLOOD SPECIMENOrdering Facility: [facility] Address: [address] [place] [address] Performed By: #### 5 7021-8 ####[facility] LABCLIA [id number] [address], [facility] [place] Eosinophils/100 WBC (Bld) 3.2 % Normal [facility] Comment on above: Order Comment: Speci men Type: BLOOD SPECIMENOrdering Facility: [facility] Address: [address] [place] [address] Performed By: #### 5 7021-8 ####[facility] LABCLIA [id number] [address], [place] [address] [place] Erythrocyte distribution width (RBC) [Ratio] 13.0 % Normal 11.5-15.0 [facility] Comment on above: Order Comment: Speci men Type: BLOOD SPECIMENOrdering Facility: [facility] Address: [address] [place] [address] Performed By: #### 5 7021-8 ####[facility] LABIA [id number] [address], [facility] [place] Hematocrit (Bld) [Volume fraction] 37.7 % Low 39.0-51.0 [facility] Comment on above: Order Comment: Speci men Type: BLOOD SPECIMENOrdering Facility: [facility] Address: [address] [place] [address] Performed By: #### 5 7021-8 ####[facility] LABCLIA [id number] [address], [facility] [place] Hemoglobin (Bld) [Mass/Vol] 12.4 g/dL Low 13.0-17.0 [facility] Comment on above: Order Comment: Speci men Type: BLOOD SPECIMENOrdering Facility: [facility] Address: [address] [place] [address] Performed By: #### 5 7021-8 ####[facility] LABIA [id number] [address], [facility] [place] Immature granulocytes (Bld) [#/Vol] 0.14 10*3/uL High <0.10 [facility] Comment on above: Order Comment: Speci men Type: BLOOD SPECIMENOrdering Facility: [facility] Address: [address] [place] [address] Performed By: #### 5 7021-8 ####[facility] LABCLIA [id number] [place] [address] [place] Immature granulocytes/100 WBC (Bld) 1.4 % Normal [facility] Comment on above: Order Comment: Speci men Type: BLOOD SPECIMENOrdering Facility: [facility] Address: [address] [place] [address] Performed By: #### 5 7021-8 ####[facility] LABCLIA [id number] [place] [address] [place] Lymphocytes (Bld) [#/Vol] 2.70 10*3/uL Normal 1.00-4.00 [facility] Comment on above: Order Comment: Speci men Type: BLOOD SPECIMENOrdering Facility: [facility] Address: [address] [place] [address] Performed By: #### 5 7021-8 ####[facility] LABCLIA [id number] [place] [address] [place] Lymphocytes/100 WBC (Bld) 26.8 % Normal [facility] Comment on above: Order Comment: Speci men Type: BLOOD SPECIMENOrdering Facility: [facility] Address: [address] [place] [address] Performed By: #### 5 7021-8 ####[facility] LABCLIA [id number] [place] [address] [place] MCH (RBC) [Entitic mass] 31.1 pg Normal 26.0-34.0 [facility] Comment on above: Order Comment: Speci men Type: BLOOD SPECIMENOrdering Facility: [facility] Address: [address] [place] [address] Performed By: #### 5 7021-8 ####[facility] LABCLIA [id number] [place] [address] [place] MCHC (RBC) [Mass/Vol] 32.9 g/dL Normal 30.5-36.0 [facility] Comment on above: Order Comment: Speci men Type: BLOOD SPECIMENOrdering Facility: [facility] Address: [address] [place] [address] Performed By: #### 5 7021-8 ####[facility] LABIA [id number] [place] [address] [place] MCV (RBC) [Entitic vol] 94.5 fL Normal 80.0-100.0 [facility] Comment on above: Order Comment: Speci men Type: BLOOD SPECIMENOrdering Facility: [facility] Address: [address] [place] [address] Performed By: #### 5 7021-8 ####[facility] LABIA [id number] [place] [address] [place] Monocytes (Bld) [#/Vol] 1.26 10*3/uL High <0.87 [facility] Comment on above: Order Comment: Speci men Type: BLOOD SPECIMENOrdering Facility: [facility] Address: [address] [place] [address] Performed By: #### 5 7021-8 ####[facility] LABCLIA [id number] [place] [address] [place] Monocytes/100 WBC (Bld) 12.5 % Normal [facility] Comment on above: Order Comment: Speci men Type: BLOOD SPECIMENOrdering Facility: [facility] Address: [address] [place] [address] Performed By: #### 5 7021-8 ####[facility] LABCLIA [id number] [place] [address] [place] Neutrophils (Bld) [#/Vol] 5.60 10*3/uL Normal 1.45-7.50 [facility] Comment on above: Order Comment: Speci men Type: BLOOD SPECIMENOrdering Facility: [facility] Address: [address] [place] [address] Performed By: #### 5 7021-8 ####[facility] LABCLIA [id number] [facility] [place] [address] [place] Neutrophils/100 WBC (Bld) 55.5 % Normal [facility] Comment on above: Order Comment: Speci men Type: BLOOD SPECIMENOrdering Facility: [facility] Address: [address] [place] [address] Performed By: #### 5 7021-8 ####[facility] LABCLIA [id number] [place] [address] [place] Nucleated RBC (Bld) [#/Vol] 10*3/uL Normal <0.01 [facility] Comment on above: Order Comment: Speci men Type: BLOOD SPECIMENOrdering Facility: [facility] Address: [address] [place] [address] Performed By: #### 5 7021-8 ####[facility] LABCLIA [id number] [facility] [place] [address] [place] Nucleated RBC/100 WBC (Bld) [Ratio] 0.0 /100 WBC Normal [facility] Comment on above: Order Comment: Speci men Type: BLOOD SPECIMENOrdering Facility: [facility] Address: [address] [place] [address] Performed By: #### 5 7021-8 ####[facility] LABCLIA [id number] [place] [address] [place] Platelet mean volume (Bld) [Entitic vol] 10.2 fL Normal 9.0-12.7 [facility] Comment on above: Order Comment: Speci men Type: BLOOD SPECIMENOrdering Facility: [facility] Address: [address] [place] [address] Performed By: #### 5 7021-8 ####[facility] LABIA [id number] [place] [id number] [place] Platelets (Bld) [#/Vol] 290 10*3/uL Normal 150-400 [facility] Comment on above: Order Comment: Speci men Type: BLOOD SPECIMENOrdering Facility: [facility] Address: [address] [place] [address] Performed By: #### 5 7021-8 ####[facility] LABIA [id number] [place] [address] [place] RBC (Bld) [#/Vol] 3.99 10*6/uL Low 4.20-6.00 [facility] Comment on above: Order Comment: Speci men Type: BLOOD SPECIMENOrdering Facility: [facility] Address: [address] [place] [address] Performed By: #### 5 7021-8 ####[facility] LABIA [id number] [place] [address] [place] WBC (Bld) [#/Vol] 10.08 10*3/uL Normal 3.70-11.00 [facility] Comment on above: Order Comment: Speci men Type: BLOOD SPECIMENOrdering Facility: [facility] Address: [address] [place] [address] Performed By: #### 5 7021-8 ####[facility] LABIA [id number] [place] [id number] [place] Comprehensive metabolic 2000 panelon 06-07-2024 Albumin [Mass/Vol] 3.9 g/dL Normal 3.9-4.9 [facility] Comment on above: Order Comment: Speci men Type: BLOOD SPECIMENOrdering Facility: [facility] Address: [address] [place] [address] Performed By: #### 1 9123-9, 2777-1, 86432-1, HSTNT ####[facility] LABIA [id number] [address] [address] [place] ALP [Catalytic activity/Vol] 76 U/L Normal 38-113 [facility] Comment on above: Order Comment: Speci men Type: BLOOD SPECIMENOrdering Facility: [facility] Address: [address] [place] [address] Performed By: #### 1 9123-9, 2777-1, 36168-2, HSTNT ####[facility] LABIA [id number] [place] [address] [place] ALT [Catalytic activity/Vol] 12 U/L Normal 10-54 [facility] Comment on above: Order Comment: Speci men Type: BLOOD SPECIMENOrdering Facility: [facility] Address: [address] [place] [address] Performed By: #### 1 9123-9, 2777-1, 33214-8, HSTNT ####[facility] [id number] [place] [id number] [place] Anion gap [Moles/Vol] 16 mmol/L High 8-15 [facility] Comment on above: Order Comment: Speci men Type: BLOOD SPECIMENOrdering Facility: [facility] Address: [address] [place] [address] Performed By: #### 1 9123-9, 2777-1, 11264-4, HSTNT ####[facility] LABIA [id number] [place] [id number] [place] AST [Catalytic activity/Vol] 24 U/L Normal 14-40 [facility] Comment on above: Order Comment: Speci men Type: BLOOD SPECIMENOrdering Facility: [facility] Address: [address] [place] [address] Performed By: #### 1 9123-9, 2777-1, 95995-5, HSTNT ####[facility] LABCLIA [id number] [address] [address] [place] Bilirubin [Mass/Vol] 1.0 mg/dL Normal 0.2-1.3 [facility] Comment on above: Order Comment: Speci men Type: BLOOD SPECIMENOrdering Facility: [facility] Address: [address] [place] [address] Performed By: #### 1 9123-9, 2777-, 92809-9, HSTNT ####[facility] LABCLIA [id number] [place] [id number] [place] Calcium [Mass/Vol] 9.6 mg/dL Normal 8.5-10.2 [facility] Comment on above: Order Comment: Speci men Type: BLOOD SPECIMENOrdering Facility: [facility] Address: [address] [place] [address] Performed By: #### 1 9123-9, 277-, 98012-1, HSTNT ####[facility] LABCLIA [id number] [place] [id number] [place] Chloride [Moles/Vol] 99 mmol/L Normal 98-107 [facility] Comment on above: Order Comment: Speci men Type: BLOOD SPECIMENOrdering Facility: [facility] Address: [address] [place], [place] [address] Performed By: #### 1 9123-9, 277-, 26930-3, HSTNT ####[facility] LABCLIA [id number] [place] [id number] [place] CO2 [Moles/Vol] 24 mmol/L Normal 22-30 [facility] Comment on above: Order Comment: Speci men Type: BLOOD SPECIMENOrdering Facility: [facility] Address: [address] [place] [address] Performed By: #### 1 9123-9, 2777-1, 25471-4, HSTNT ####[facility] LABIA [id number] [address] [address] [place] Creatinine [Mass/Vol] 1.04 mg/dL Normal 0.73-1.22 [facility] Comment on above: Order Comment: Speci men Type: BLOOD SPECIMENOrdering Facility: [facility] Address: [address] [place] [address] Performed By: #### 1 9123-9, 277-, 37878-1, HSTNT ####[facility] [id number] [place] [address] [place] Creatinine and Glomerular filtration rate.predicted panel (S/P/Bld) 79 mL/min/1.73m??? Normal >=60 [facility] Comment on above: Order Comment: Roberto Carlos [facility] Type: BLOOD SPECIMENOrdering Facility: [facility] Address: [address] [place] [address] Result Comment: Yesica mated Glomerular Filtration Rate [...] GFR. Performed By: #### 1 9123-9, 27709-07, 55219-3, HSTNT ####[facility] LABIA [id number] [address] [address] [place] Glucose [Mass/Vol] 110 mg/dL High 74-99 [facility] Comment on above: Order Comment: Speci men Type: BLOOD SPECIMENOrdering Facility: [facility] Address: [address] [place] [address] Result Comment: The [place] [employer] (ADA) provides guidance for cutoff [...] Standards of Medical Care in Diabetes 2016, [place] [employer]. Diabetes Care. 2016.39(Suppl 1). Performed By: #### 1 9123-9, 2777-, 73464-2, HSTNT ####[facility] LABIA [id number] [place] [id number] [place] Potassium [Moles/Vol] 3.9 mmol/L Normal 3.7-5.1 [facility] Comment on above: Order Comment: Speci men Type: BLOOD SPECIMENOrdering Facility: [facility] Address: [address] [place] [address] Performed By: #### 1 9123-9, 2777, 78988-9, HSTNT ####[facility] LABIA [id number] [place] [id number] [place] Protein [Mass/Vol] 6.3 g/dL Normal 6.3-8.0 [facility] Comment on above: Order Comment: Speci men Type: BLOOD SPECIMENOrdering Facility: [facility] Address: [address] [place], [place] [address] Performed By: #### 1 9123-9, 27709-07, 96344-0, HSTNT ####[facility] LABIA [id number] [place] [id number] [place] Sodium [Moles/Vol] 139 mmol/L Normal 136-144 [facility] Comment on above: Order Comment: Speci men Type: BLOOD SPECIMENOrdering Facility: [facility] Address: [address] [place], [place] [address] Performed By: #### 1 9123-9, 2777-1, 96764-2, HSTNT ####[facility] LABCLIA [id number] [address] [address] [place] Urea nitrogen [Mass/Vol] 17 mg/dL Normal 9-24 [facility] Comment on above: Order Comment: Speci men Type: BLOOD SPECIMENOrdering Facility: [facility] Address: [address] [place] [address] Performed By: #### 1 9123-9, 2777-1, 67413-1, HSTNT ####[facility] LABCLIA [id number] [address] [address] [place] ECG COMPLETEon 06-07-2024 ECG COMPLETE Normal [facility] HIGH SENSITIVITY TROPONIN To n 06-07-2024 Troponin T.cardiac High sensitivity method [Mass/Vol] 31 ng/L High <12 [facility] Comment on above: Order Comment: Speci men Type: BLOOD SPECIMENOrdering Facility: [facility] Address: [address] [place] [address] Performed By: #### 1 9123-9, 277-1, 40051-0, HSTNT ####[facility] LABCLIA [id number] [address] [address] [place] MEDICAL EMERon 06-07-2024 MEDICAL KAITLYN Normal [facility] Magnesium SerPl-mCncon 06-07 Magnesium [Mass/Vol] 1.9 mg/dL Normal 1.7-2.3 [facility] Comment on above: Order Comment: Speci men Type: BLOOD SPECIMENOrdering Facility: [facility] Address: [address] [place], [place] [address] Performed By: #### 1 9123-9, 2777-1, 20580-4, HSTNT ####[facility] LABCLIA [id number] [address] [address] [place] NURSING PROGon 06-07-2024 NURSING PROG Normal [facility] NURSING PROG Normal [facility] Phosphate SerPl-mCncon 06-07 Phosphate [Mass/Vol] 3.3 mg/dL Normal 2.7-4.8 [facility] Comment on above: Order Comment: Speci men Type: BLOOD SPECIMENOrdering Facility: [facility] Address: [address] [place] [address] Performed By: #### 1 9123-9, 2777-1, 87184-1, HSTNT ####[facility] LABCLIA [id number] [place] [address] [place] ARTERIAL BLOOD GASESon 06-06 Base excess Calc (Bld) [Moles/Vol] 4 mmol/L High 0-2 [facility] Comment on above: Order Comment: Speci men Type: ARTERIAL BLOOD SPECIMENOrdering Facility: [facility] Address: [address] [place] [address] Performed By: #### A LLBG ####[facility] LABCLIA [id number] [place] [address] [place] Body temperature 98.6 [degF] Normal [facility] Comment on above: Order Comment: Speci men Type: ARTERIAL BLOOD SPECIMENOrdering Facility: [facility] Address: [address] [place] [address] Performed By: #### A LLBG ####[facility] LABCLIA [id number] [place] [address] [place] Calcium.ionized (Bld) [Mass/Vol] 1.23 mmol/L Normal 1.08-1.30 [facility] Comment on above: Order Comment: Speci men Type: ARTERIAL BLOOD SPECIMENOrdering Facility: [facility] Address: [address] [place] [address] Performed By: #### A LLBG ####[facility] LABCLIA [id number] [place] [address] [place] Calcium.ionized adjusted to pH 7.4 (BldA) [Moles/Vol] 1.26 mmol/L Normal 1.08-1.30 [facility] Comment on above: Order Comment: Speci men Type: ARTERIAL BLOOD SPECIMENOrdering Facility: [facility] Address: [address] [place] [address] Performed By: #### A LLBG ####[facility] LABCLIA [id number] [place] [address] [place] Carboxyhemoglobin (BldA) [Mass fraction] 1.2 % Normal 0.0-2.0 [facility] Comment on above: Order Comment: Speci men Type: ARTERIAL BLOOD SPECIMENOrdering Facility: [facility] Address: [address] [place] [address] Result Comment: Carb oxyhemoglobin Reference Range for Smokers: 2.0-8.0% Performed By: #### A LLBG ####[facility] LABCLIA [id number] [place] [address] [place] CO2 (Bld) [Partial pressure] 39 mm Hg Normal 36-46 [facility] Comment on above: Order Comment: Speci men Type: ARTERIAL BLOOD SPECIMENOrdering Facility: [facility] Address: [address] [place] [address] Performed By: #### A LLBG ####[facility] LABCLIA [id number] [place] [address] [place] Glucose [Mass/Vol] 116 mg/dL High 60-105 [facility] Comment on above: Order Comment: Speci men Type: ARTERIAL BLOOD SPECIMENOrdering Facility: [facility] Address: [address] [place] [address] Performed By: #### A LLBG ####[facility] LABCLIA [id number] [place] [address] [place] HCO3 (Bld) [Moles/Vol] 27 mmol/L High 22-26 [facility] Comment on above: Order Comment: Speci men Type: ARTERIAL BLOOD SPECIMENOrdering Facility: [facility] Address: [address] [place] [address] Performed By: #### A LLBG ####[facility] LABCLIA [id number] [place] [address] [place] Hematocrit (Bld) [Volume fraction] 39.5 % Normal 39.0-51.0 [facility] Comment on above: Order Comment: Speci men Type: ARTERIAL BLOOD SPECIMENOrdering Facility: [facility] Address: [address] [place] [address] Performed By: #### A LLBG ####[facility] LABCLIA [id number] [place] [address] [place] Hemoglobin (Bld) [Mass/Vol] 12.9 g/dL Low 13.0-17.0 [facility] Comment on above: Order Comment: Speci men Type: ARTERIAL BLOOD SPECIMENOrdering Facility: [facility] Address: [address] [place] [address] Performed By: #### A LLBG ####[facility] LABCLIA [id number] [place] [address] [place] Lactate [Moles/Vol] 0.6 mmol/L Normal 0.5-2.2 [facility] Comment on above: Order Comment: Speci men Type: ARTERIAL BLOOD SPECIMENOrdering Facility: [facility] Address: [address] [place] [address] Performed By: #### A LLBG ####[facility] LABCLIA [id number] [place] [id number] [place] Methemoglobin (Bld) [Mass fraction] 0.5 % Normal 0.0-1.5 [facility] Comment on above: Order Comment: Speci men Type: ARTERIAL BLOOD SPECIMENOrdering Facility: [facility] Address: [address] [place] [address] Performed By: #### A LLBG ####[facility] LABCLIA [id number] [address] [address] [place] O2 THERAPY RA=Room Air Normal [facility] Comment on above: Order Comment: Speci men Type: ARTERIAL BLOOD SPECIMENOrdering Facility: [facility] Address: [address] [place], [place] [address] Performed By: #### A LLBG ####[facility] LABCLIA [id number] [address] [address] [place] Oxygen (Bld) [Partial pressure] 74 mm Hg Low 85-95 [facility] Comment on above: Order Comment: Speci men Type: ARTERIAL BLOOD SPECIMENOrdering Facility: [facility] Address: [address] [place] [address] Performed By: #### A LLBG ####[facility] LABCLIA [id number] [place] [id number] [place] Oxyhemoglobin (BldA) [Mass fraction] 94 % Low 95-98 [facility] Comment on above: Order Comment: Speci men Type: ARTERIAL BLOOD SPECIMENOrdering Facility: [facility] Address: [address] [place] [address] Performed By: #### A LLBG ####[facility] LABCLIA [id number] [address] [address] [place] pH (Bld) 7.46 [pH] High 7.35-7.45 [facility] Comment on above: Order Comment: Speci men Type: ARTERIAL BLOOD SPECIMENOrdering Facility: [facility] Address: [address] [place], [place] [address] Performed By: #### A LLBG ####[facility] LABCLIA [id number] [address] [address] [place] PO2 / FIO2 RATIO 352 mmHg Normal >300 [facility] Comment on above: Order Comment: Speci men Type: ARTERIAL BLOOD SPECIMENOrdering Facility: [facility] Address: [address] [place] [address] Performed By: #### A LLBG ####[facility] LABCLIA [id number] [place] [id number] [place] Potassium [Moles/Vol] 3.8 mmol/L Normal 3.5-5.0 [facility] Comment on above: Order Comment: Speci men Type: ARTERIAL BLOOD SPECIMENOrdering Facility: [facility] Address: [address] [place] [address] Performed By: #### A LLBG ####[facility] LABCLIA [id number] [place] [id number] [place] Sodium [Moles/Vol] 137 mmol/L Normal 136-144 [facility] Comment on above: Order Comment: Speci men Type: ARTERIAL BLOOD SPECIMENOrdering Facility: [facility] Address: [address] [place] [address] Performed By: #### A LLBG ####[facility] LABCLIA [id number] [place] [id number] [place] Basic metabolic 2000 panelon 06-06-2024 Anion gap [Moles/Vol] 11 mmol/L Normal 8-15 [facility] Comment on above: Order Comment: Speci men Type: BLOOD SPECIMENOrdering Facility: [facility] Address: [address] [place] [address] Performed By: #### 2 4321-2, HSTNT ####[facility] LABCLIA [id number] [place] [id number] [place] Calcium [Mass/Vol] 9.8 mg/dL Normal 8.5-10.2 [facility] Comment on above: Order Comment: Speci men Type: BLOOD SPECIMENOrdering Facility: [facility] Address: [address] [place], [place] [address] Performed By: #### 2 4321-2, HSTNT ####[facility] LABCLIA [id number] [place] [id number] [place] Chloride [Moles/Vol] 102 mmol/L Normal 98-107 [facility] Comment on above: Order Comment: Speci men Type: BLOOD SPECIMENOrdering Facility: [facility] Address: [address] [place] [address] Performed By: #### 2 4321-2, HSTNT ####[facility] LABCLIA [id number] [place] [address] [place] CO2 [Moles/Vol] 27 mmol/L Normal 22-30 [facility] Comment on above: Order Comment: Speci men Type: BLOOD SPECIMENOrdering Facility: [facility] Address: [address] [place] [address] Performed By: #### 2 4321-2, HSTNT ####[facility] LABCLIA [id number] [address] [place] Creatinine [Mass/Vol] 1.00 mg/dL Normal 0.73-1.22 [facility] Comment on above: Order Comment: Speci men Type: BLOOD SPECIMENOrdering Facility: [facility] Address: [address] [place] [address] Performed By: #### 2 4321-2, HSTNT ####[facility] LABIA [id number] [address] [facility] Creatinine and Glomerular filtration rate.predicted panel (S/P/Bld) 82 mL/min/1.73m??? Normal >=60 [facility] Comment on above: Order Comment: Speci men Type: BLOOD SPECIMENOrdering Facility: [facility] Address: [address] [place] [address] Result Comment: Yesica mated Glomerular Filtration Rate [...] GFR. Performed By: #### 2 4321-2, HSTNT ####[facility] LABCLIA [id number] [place] [id number] [place] Glucose [Mass/Vol] 94 mg/dL Normal 74-99 [facility] Comment on above: Order Comment: Roberto Carlos men Type: BLOOD SPECIMENOrdering Facility: [facility] Address: [address] [place] [address] Result Comment: The [place] [employer] (ADA) provides guidance for cutoff [...] Standards of Medical Care in Diabetes 2016, [place] [employer]. Diabetes Care. 2016.39(Suppl 1). Performed By: #### 2 4321-2, HSTNT ####[facility] LABCLIA [id number] [place] [id number] [place] Potassium [Moles/Vol] 4.3 mmol/L Normal 3.7-5.1 [facility] Comment on above: Order Comment: Roberto Carlos men Type: BLOOD SPECIMENOrdering Facility: [facility] Address: [address] [place] [address] Performed By: #### 2 4321-2, HSTNT ####[facility] LABIA [id number] [place] [id number] [place] Sodium [Moles/Vol] 140 mmol/L Normal 136-144 [facility] Comment on above: Order Comment: Roberto Carlos men Type: BLOOD SPECIMENOrdering Facility: [facility] Address: [address] [place] [address] Performed By: #### 2 4321-2, HSTNT ####[facility] LABCLIA [id number] [place] [id number] [place] Urea nitrogen [Mass/Vol] 16 mg/dL Normal 9-24 [facility] Comment on above: Order Comment: Speci men Type: BLOOD SPECIMENOrdering Facility: [facility] Address: [address] [place] [address] Performed By: #### 2 4321-2, HSTNT ####[facility] LABCLIA [id number] [place] [address] [place] CBC panel Auto (Bld)on 06-06 Erythrocyte distribution width (RBC) [Ratio] 13.0 % Normal 11.5-15.0 [facility] Comment on above: Order Comment: Speci men Type: BLOOD SPECIMENOrdering Facility: [facility] Address: [address] [place] [address] Performed By: #### 5 8410-2 ####[facility] LABCLIA [id number] [place] [address] [place] Hematocrit (Bld) [Volume fraction] 39.7 % Normal 39.0-51.0 [facility] Comment on above: Order Comment: Speci men Type: BLOOD SPECIMENOrdering Facility: [facility] Address: [address] [place] [address] Performed By: #### 5 8410-2 ####[facility] LABCLIA [id number] [place] [id number] [place] Hemoglobin (Bld) [Mass/Vol] 13.0 g/dL Normal 13.0-17.0 [facility] Comment on above: Order Comment: Speci men Type: BLOOD SPECIMENOrdering Facility: [facility] Address: [address] [place] [address] Performed By: #### 5 8410-2 ####[facility] LABIA [id number] [place] [address] [place] MCH (RBC) [Entitic mass] 31.5 pg Normal 26.0-34.0 [facility] Comment on above: Order Comment: Speci men Type: BLOOD SPECIMENOrdering Facility: [facility] Address: [address] [place] [address] Performed By: #### 5 8410-2 ####[facility] [id number] [place] [address] [place] MCHC (RBC) [Mass/Vol] 32.7 g/dL Normal 30.5-36.0 [facility] Comment on above: Order Comment: Speci men Type: BLOOD SPECIMENOrdering Facility: [facility] Address: [address] [place] [address] Performed By: #### 5 8410-2 ####[facility] [id number] [place] [address] [place] MCV (RBC) [Entitic vol] 96.1 fL Normal 80.0-100.0 [facility] Comment on above: Order Comment: Speci men Type: BLOOD SPECIMENOrdering Facility: [facility] Address: [address] [place] [address] Performed By: #### 5 8410-2 ####[facility] [id number] [place] [address] [place] Nucleated RBC (Bld) [#/Vol] 10*3/uL Normal <0.01 [facility] Comment on above: Order Comment: Speci men Type: BLOOD SPECIMENOrdering Facility: [facility] Address: [address] [place] [address] Performed By: #### 5 8410-2 ####[facility] [id number] [place] [address] [place] Platelet mean volume (Bld) [Entitic vol] 10.4 fL Normal 9.0-12.7 [facility] Comment on above: Order Comment: Speci men Type: BLOOD SPECIMENOrdering Facility: [facility] Address: [address] [place] [address] Performed By: #### 5 8410-2 ####[facility] LABCL[facility] [id number] [place] [address] [place] Platelets (Bld) [#/Vol] 320 10*3/uL Normal 150-400 [facility] Comment on above: Order Comment: Speci men Type: BLOOD SPECIMENOrdering Facility: [facility] Address: [address] [place] [address] Performed By: #### 5 8410-2 ####[facility] [id number] [place] [address] [place] RBC (Bld) [#/Vol] 4.13 10*6/uL Low 4.20-6.00 [facility] Comment on above: Order Comment: Speci men Type: BLOOD SPECIMENOrdering Facility: [facility] Address: [address] [place] [address] Performed By: #### 5 8410-2 ####[facility] LABIA [id number] [place] [address] [place] WBC (Bld) [#/Vol] 9.89 10*3/uL Normal 3.70-11.00 [facility] Comment on above: Order Comment: Speci men Type: BLOOD SPECIMENOrdering Facility: [facility] Address: [address] [place] [address] Performed By: #### 5 8410-2 ####[facility] LABIA [id number] [place] [id number] [place] HIGH SENSITIVITY TROPONIN To n 06-06-2024 Troponin T.cardiac High sensitivity method [Mass/Vol] 25 ng/L High <12 [facility] Comment on above: Order Comment: Speci men Type: BLOOD SPECIMENOrdering Facility: [facility] Address: [address] [place] [id number] Performed By: #### 2 4321-2, HSTNT ####[facility] [id number] [address] [address] [place] NURSING PROGon 06-06-2024 NURSING PROG Normal [facility] NURSING PROG Normal [facility] XR CERVICAL 2V AP/LATon 05-09 XR CERVICAL 2V AP/LAT Normal [facility] APAP SerPl-mCncon 06-04-2024 Acetaminophen [Mass/Vol] ug/mL Low - [facility] Comment on above: Order Comment: Roberto Carlos men Type: BLOOD SPECIMENOrdering Facility: [facility] Address: [address] [place] [address] Result Comment: Toxi c > 150 ug/mL 4 hours post ingestionThe Anahi Terrell nomogram can be used to estimate the probability of hepatotoxicity via the relationship of plasma acetaminophen concentration to the post ingestion interval. (Greg. Pediatrics. 1975. 55:871 to 876 and Anahi et al. Arch [employer] Med. 1981. 141:380 to 385).Reference ranges and high/low indicator flags are provided as general guidelines only. The treating physician must determine appropriate target levels/dosing based on the specific clinical situation. Performed By: #### 3 298-7 ####[facility]CL[facility] [id number] [place] [id number] [place] Basic metabolic 2000 panelon 06-04-2024 Anion gap [Moles/Vol] 9 mmol/L Normal 8-15 [facility] Comment on above: Order Comment: Roberto Carlos lion Type: BLOOD SPECIMENOrdering Facility: [facility] Address: [address] [place] [address] Performed By: #### 2 4321-2 ####[facility]CL[facility] [id number] [facility] [place] [id number] [place] Calcium [Mass/Vol] 9.4 mg/dL Normal 8.5-10.2 [facility] Comment on above: Order Comment: Speci men Type: BLOOD SPECIMENOrdering Facility: [facility] Address: [address] [place] [address] Performed By: #### 2 4321-2 ####[facility] [id number] [facility] [address] [address] [place] Chloride [Moles/Vol] 106 mmol/L Normal 98-107 [facility] Comment on above: Order Comment: Speci men Type: BLOOD SPECIMENOrdering Facility: [facility] Address: [address] [place] [address] Performed By: #### 2 4321-2 ####[facility] [id number] [facility] [place] [address] [place] CO2 [Moles/Vol] 27 mmol/L Normal 22-30 [facility] Comment on above: Order Comment: Speci men Type: BLOOD SPECIMENOrdering Facility: [facility] Address: [address] [place] [address] Performed By: #### 2 4321-2 ####[facility] [id number] [place] [address] [place] Creatinine [Mass/Vol] 1.07 mg/dL Normal 0.73-1.22 [facility] Comment on above: Order Comment: Speci men Type: BLOOD SPECIMENOrdering Facility: [facility] Address: [address] [place] [address] Performed By: #### 2 4321-2 ####[facility]CL[facility] [id number] [place] [id number] [place] Creatinine and Glomerular filtration rate.predicted panel (S/P/Bld) 76 mL/min/1.73m??? Normal >=60 [facility] Comment on above: Order Comment: Speci men Type: BLOOD SPECIMENOrdering Facility: [facility] Address: [address] [place], [place] [id number] Result Comment: Yesica mated Glomerular Filtration Rate [...] actual GFR. Performed By: #### 2 4321-2 ####[facility] LABIA [id number] [place] [address] [place] Glucose [Mass/Vol] 98 mg/dL Normal 74-99 [facility] Comment on above: Order Comment: Specmartha lion Type: BLOOD SPECIMENOrdering Facility: [facility] Address: [address] [place] [address] Result Comment: The [place] [employer] (ADA) provides guidance for cutoff [...] Standards of Medical Care in Diabetes 2016, [place] [employer]. Diabetes Care. 2016.39(Suppl 1). Performed By: #### 2 4321-2 ####[facility] LABIA [id number] [place] [address] [place] Potassium [Moles/Vol] 4.3 mmol/L Normal 3.7-5.1 [facility] Comment on above: Order Comment: Roberto Carlos lion Type: BLOOD SPECIMENOrdering Facility: [facility] Address: [address] [place] [address] Performed By: #### 2 4321-2 ####[facility] LABIA [id number] [place] [address] [place] Sodium [Moles/Vol] 142 mmol/L Normal 136-144 [facility] Comment on above: Order Comment: Speci men Type: BLOOD SPECIMENOrdering Facility: [facility] Address: [address] [place] [address] Performed By: #### 2 4321-2 ####[facility]CL[facility] [id number] [place] [address] [place] Urea nitrogen [Mass/Vol] 12 mg/dL Normal 9-24 [facility] Comment on above: Order Comment: Speci men Type: BLOOD SPECIMENOrdering Facility: [facility] Address: [address] [place] [address] Performed By: #### 2 4321-2 ####[facility]CL[facility] [id number] [place] [address] [place] CBC panel Auto (Bld)on 06-04 Erythrocyte distribution width (RBC) [Ratio] 13.5 % Normal 11.5-15.0 [facility] Comment on above: Order Comment: Speci men Type: BLOOD SPECIMENOrdering Facility: [facility] Address: [address] [place] [address] Performed By: #### 5 8410-2 ####[facility]CL[facility] [id number] [place] [address] [place] Hematocrit (Bld) [Volume fraction] 38.8 % Low 39.0-51.0 [facility] Comment on above: Order Comment: Speci men Type: BLOOD SPECIMENOrdering Facility: [facility] Address: [address] [place] [address] Performed By: #### 5 8410-2 ####[facility]CL[facility] [id number] [place] [id number] [place] Hemoglobin (Bld) [Mass/Vol] 12.2 g/dL Low 13.0-17.0 [facility] Comment on above: Order Comment: Speci men Type: BLOOD SPECIMENOrdering Facility: [facility] Address: [address] [place] [address] Performed By: #### 5 8410-2 ####[facility] LABIA [id number] [place] [address] [place] MCH (RBC) [Entitic mass] 31.1 pg Normal 26.0-34.0 [facility] Comment on above: Order Comment: Speci men Type: BLOOD SPECIMENOrdering Facility: [facility] Address: [address] [place] [address] Performed By: #### 5 8410-2 ####[facility] LABIA [id number] [place] [address] [place] MCHC (RBC) [Mass/Vol] 31.4 g/dL Normal 30.5-36.0 [facility] Comment on above: Order Comment: Speci men Type: BLOOD SPECIMENOrdering Facility: [facility] Address: [address] [place] [address] Performed By: #### 5 8410-2 ####[facility] LABIA [id number] [place] [address] [place] MCV (RBC) [Entitic vol] 99.0 fL Normal 80.0-100.0 [facility] Comment on above: Order Comment: Speci men Type: BLOOD SPECIMENOrdering Facility: [facility] Address: [address] [place] [address] Performed By: #### 5 8410-2 ####[facility] LABIA [id number] [place] [address] [place] Nucleated RBC (Bld) [#/Vol] 10*3/uL Normal <0.01 [facility] Comment on above: Order Comment: Speci men Type: BLOOD SPECIMENOrdering Facility: [facility] Address: [address] [place] [address] Performed By: #### 5 8410-2 ####[facility] LABCLIA [id number] [address] [place] [address] [place] Platelet mean volume (Bld) [Entitic vol] 10.2 fL Normal 9.0-12.7 [facility] Comment on above: Order Comment: Speci men Type: BLOOD SPECIMENOrdering Facility: [facility] Address: [address] [place] [address] Performed By: #### 5 8410-2 ####[facility] LABCLIA [id number] [address] [place] [address] [place] Platelets (Bld) [#/Vol] 239 10*3/uL Normal 150-400 [facility] Comment on above: Order Comment: Speci men Type: BLOOD SPECIMENOrdering Facility: [facility] Address: [address] [place] [address] Performed By: #### 5 8410-2 ####[facility] LABIA [id number] [place] [address] [place] RBC (Bld) [#/Vol] 3.92 10*6/uL Low 4.20-6.00 [facility] Comment on above: Order Comment: Speci men Type: BLOOD SPECIMENOrdering Facility: [facility] Address: [address] [place] [address] Performed By: #### 5 8410-2 ####[facility]CL[facility] [id number] [address] [address] [place] WBC (Bld) [#/Vol] 10.60 10*3/uL Normal 3.70-11.00 [facility] Comment on above: Order Comment: Speci men Type: BLOOD SPECIMENOrdering Facility: [facility] Address: [address] [place] [address] Performed By: #### 5 8410-2 ####[facility]CL[facility] [id number] [address] [address] [place] Hepatic function 2000 panelo n 06-04-2024 Albumin [Mass/Vol] 4.0 g/dL Normal 3.9-4.9 [facility] Comment on above: Order Comment: Speci men Type: BLOOD SPECIMENOrdering Facility: [facility] Address: [address] [place] [address] Performed By: #### 2 4325-3 ####[facility]CL[facility] [id number] [place] [address] [place] ALP [Catalytic activity/Vol] 62 U/L Normal 38-113 [facility] Comment on above: Order Comment: Speci men Type: BLOOD SPECIMENOrdering Facility: [facility] Address: [address] [place] [address] Performed By: #### 2 4325-3 ####[facility] LABCL[facility] [id number] [place] [address] [place] ALT [Catalytic activity/Vol] 9 U/L Low 10-54 [facility] Comment on above: Order Comment: Speci men Type: BLOOD SPECIMENOrdering Facility: [facility] Address: [address] [place] [address] Performed By: #### 2 4325-3 ####[facility] LABCLIA [id number] [place] [id number] [place] AST [Catalytic activity/Vol] 26 U/L Normal 14-40 [facility] Comment on above: Order Comment: Speci men Type: BLOOD SPECIMENOrdering Facility: [facility] Address: [address] [place] [address] Performed By: #### 2 4325-3 ####[facility]CL[facility] [id number] [place] [id number] [place] Bilirubin [Mass/Vol] 0.5 mg/dL Normal 0.2-1.3 [facility] Comment on above: Order Comment: Speci men Type: BLOOD SPECIMENOrdering Facility: [facility] Address: [address] [place], [place] [address] Performed By: #### 2 4325-3 ####[facility]CL[facility] [id number] [place] [address] [place] Bilirubin.conjugated [Mass/Vol] 0.2 mg/dL Normal <0.3 [facility] Comment on above: Order Comment: Speci men Type: BLOOD SPECIMENOrdering Facility: [facility] Address: [address] [place] [address] Performed By: #### 2 4325-3 ####[facility]CLIA [id number] [place] [address] [place] Protein [Mass/Vol] 6.0 g/dL Low 6.3-8.0 [facility] Comment on above: Order Comment: Speci men Type: BLOOD SPECIMENOrdering Facility: [facility] Address: [address] [place] [address] Performed By: #### 2 4325-3 ####[facility] LABIA [id number] [place] [id number] [place] THERAPY NTon 06-04-2024 THERAPY NT Normal [facility] XR CERVICAL 2V AP/LATon 05-09 XR CERVICAL 2V AP/LAT Normal [facility] Basic metabolic 2000 panelon 06-03-2024 Anion gap [Moles/Vol] 14 mmol/L Normal 8-15 [facility] Comment on above: Order Comment: Speci men Type: BLOOD SPECIMENOrdering Facility: [facility] Address: [address] [place], [place] [address] Performed By: #### 2 4321-2 ####[facility] LABIA [id number] [place] [id number] [place] Calcium [Mass/Vol] 9.5 mg/dL Normal 8.5-10.2 [facility] Comment on above: Order Comment: Speci men Type: BLOOD SPECIMENOrdering Facility: [facility] Address: [address] [place] [address] Performed By: #### 2 4321-2 ####[facility] LABCLIA [id number] [place] [id number] [place] Chloride [Moles/Vol] 103 mmol/L Normal 98-107 [facility] Comment on above: Order Comment: Speci men Type: BLOOD SPECIMENOrdering Facility: [facility] Address: [address] [place] [address] Performed By: #### 2 4321-2 ####[facility] LABCLIA [id number] [place] [address] [place] CO2 [Moles/Vol] 23 mmol/L Normal 22-30 [facility] Comment on above: Order Comment: Speci men Type: BLOOD SPECIMENOrdering Facility: [facility] Address: [address] [place] [address] Performed By: #### 2 4321-2 ####[facility]CL[facility] [id number] [place] [id number] [place] Creatinine [Mass/Vol] 0.88 mg/dL Normal 0.73-1.22 [facility] Comment on above: Order Comment: Speci men Type: BLOOD SPECIMENOrdering Facility: [facility] Address: [address] [place] [address] Performed By: #### 2 4321-2 ####[facility]CL[facility] [id number] [place] [id number] [place] Creatinine and Glomerular filtration rate.predicted panel (S/P/Bld) 94 mL/min/1.73m??? Normal >=60 [facility] Comment on above: Order Comment: Speci men Type: BLOOD SPECIMENOrdering Facility: [facility] Address: [address] [place] [address] Result Comment: Yesica mated Glomerular Filtration Rate [...] actual GFR. Performed By: #### 2 4321-2 ####[facility] LABCLIA [id number] [address] [address] [place] Glucose [Mass/Vol] 135 mg/dL High 74-99 [facility] Comment on above: Order Comment: Specmartha lion Type: BLOOD SPECIMENOrdering Facility: [facility] Address: [address] [place] [address] Result Comment: The [place] [employer] (ADA) provides guidance for cutoff [...] Standards of Medical Care in Diabetes 2016, [place] [employer]. Diabetes Care. 2016.39(Suppl 1). Performed By: #### 2 4321-2 ####[facility] LABCLIA [id number] [address] [address] [place] Potassium [Moles/Vol] 4.2 mmol/L Normal 3.7-5.1 [facility] Comment on above: Order Comment: Roberto Carlos lion Type: BLOOD SPECIMENOrdering Facility: [facility] Address: [address] [place] [address] Performed By: #### 2 4321-2 ####[facility]CL[facility] [id number] [facility] [address] [address] [place] Sodium [Moles/Vol] 140 mmol/L Normal 136-144 [facility] Comment on above: Order Comment: Speci men Type: BLOOD SPECIMENOrdering Facility: [facility] Address: [address] [place] [address] Performed By: #### 2 4321-2 ####[facility]CL[facility] [id number] [address] [place] [address] [place] Urea nitrogen [Mass/Vol] 15 mg/dL Normal 9-24 [facility] Comment on above: Order Comment: Speci men Type: BLOOD SPECIMENOrdering Facility: [facility] Address: [address] [place] [address] Performed By: #### 2 4321-2 ####[facility]CLIA [id number] [address], [place] [address] [place] CASE MGT INIT ASSESon 2024 CASE MGT INIT ASSES Normal [facility] CBC panel Auto (Bld)on 06-03 Erythrocyte distribution width (RBC) [Ratio] 13.0 % Normal 11.5-15.0 [facility] Comment on above: Order Comment: Speci men Type: BLOOD SPECIMENOrdering Facility: [facility] Address: [address] [place] [address] Performed By: #### 5 8410-2 ####[facility] LABCLIA [id number] [place] [id number] [place] Hematocrit (Bld) [Volume fraction] 37.5 % Low 39.0-51.0 [facility] Comment on above: Order Comment: Speci men Type: BLOOD SPECIMENOrdering Facility: [facility] Address: [address] [place] [address] Performed By: #### 5 8410-2 ####[facility] LABCLIA [id number] [facility] [address] [place] [address] [place] Hemoglobin (Bld) [Mass/Vol] 12.4 g/dL Low 13.0-17.0 [facility] Comment on above: Order Comment: Speci men Type: BLOOD SPECIMENOrdering Facility: [facility] Address: [address] [place] [address] Performed By: #### 5 8410-2 ####[facility] LABIA [id number] [place] [address] [place] MCH (RBC) [Entitic mass] 31.2 pg Normal 26.0-34.0 [facility] Comment on above: Order Comment: Speci men Type: BLOOD SPECIMENOrdering Facility: [facility] Address: [address] [place] [address] Performed By: #### 5 8410-2 ####[facility] LABIA [id number] [place] [address] [place] MCHC (RBC) [Mass/Vol] 33.1 g/dL Normal 30.5-36.0 [facility] Comment on above: Order Comment: Speci men Type: BLOOD SPECIMENOrdering Facility: [facility] Address: [address] [place] [address] Performed By: #### 5 8410-2 ####[facility] [id number] [place] [address] [place] MCV (RBC) [Entitic vol] 94.5 fL Normal 80.0-100.0 [facility] Comment on above: Order Comment: Speci men Type: BLOOD SPECIMENOrdering Facility: [facility] Address: [address] [place] [address] Performed By: #### 5 8410-2 ####[facility] LABIA [id number] [place] [address] [place] Nucleated RBC (Bld) [#/Vol] 10*3/uL Normal <0.01 [facility] Comment on above: Order Comment: Speci men Type: BLOOD SPECIMENOrdering Facility: [facility] Address: [address] [place] [address] Performed By: #### 5 8410-2 ####[facility] LABCLIA [id number] [address] [place] [address] [place] Platelet mean volume (Bld) [Entitic vol] 10.4 fL Normal 9.0-12.7 [facility] Comment on above: Order Comment: Speci men Type: BLOOD SPECIMENOrdering Facility: [facility] Address: [address] [place] [address] Performed By: #### 5 8410-2 ####[facility] LABCLIA [id number] [address] [place] [address] [place] Platelets (Bld) [#/Vol] 266 10*3/uL Normal 150-400 [facility] Comment on above: Order Comment: Speci men Type: BLOOD SPECIMENOrdering Facility: [facility] Address: [address] [place] [address] Performed By: #### 5 8410-2 ####[facility] LABIA [id number] [address] [place] [address] [place] RBC (Bld) [#/Vol] 3.97 10*6/uL Low 4.20-6.00 [facility] Comment on above: Order Comment: Speci men Type: BLOOD SPECIMENOrdering Facility: [facility] Address: [address] [place] [address] Performed By: #### 5 8410-2 ####[facility] LABIA [id number] [address] [address] [place] WBC (Bld) [#/Vol] 13.37 10*3/uL High 3.70-11.00 [facility] Comment on above: Order Comment: Speci men Type: BLOOD SPECIMENOrdering Facility: [facility] Address: [address] [place] [address] Performed By: #### 5 8410-2 ####[facility] LABCLIA [id number] [address] [address] [place] THERAPY NTon 06-03-2024 THERAPY NT Normal [facility] ANES POSTPROC EVALon 025 ANES POSTPROC EVAL Normal [facility] ANES PRE-OPon 06-02-2024 ANES PRE-OP Normal [facility] BRIEF OP NOTon 06-02-2024 BRIEF OP NOT Normal [facility] OPERATIVE NOon 06-02-2024 OPERATIVE NO Normal [facility] XR CERVICAL SPECIFY 1Von XR CERVICAL SPECIFY 1V Normal [facility] XR VERIFY LEVEL [id number] 06-02-2024 XR VERIFY LEVEL C-[id number]-NB Normal [facility] CT Cervical spine WO contras ton 05-16-2024 IMPRESSION: Developmental cervical canal stenosis with superimposed degenerative changes that are most prominent at C5-6 where there is severe cord compression. Multilevel bony foraminal narrowing as detailed above. Anatomic Variant: None. Assume 7 cervical vertebrae with counting from the craniocervical junction. Control Room [facility] Transcribe Date/Time: May 16 2024 7:44A Dictated by : DOMENIC FORD MD This examination was interpreted and the report reviewed and electronically signed by: DOMENIC FORD MD on May 16 2024 7:54AM [facility] RADIOLOGY REAL SAMURAIO * * *Final Report* * * DATE OF EXAM: May 14 2024 9:37AM [facility] 0505 - CT CERVICAL SPINE WO IVCON [...] Counting reference: Craniocervical junction. Anatomic Variants: None. Thread Spinner (topogram) images: No additional findings. Alignment: There [...] degenerative changes cause mild bilateral foraminal stenosis. [facility] Provider, [facility] - 05/16/2024 * * *Final Report* * * DATE OF EXAM: May 14 2024 9:37AM [facility] 0505 - CT CERVICAL SPINE WO IVCON [...] Counting reference: Craniocervical junction. Anatomic Variants: None. Thread Spinner (topogram) images: No additional findings. Alignment: There [...] vertebrae with counting from the craniocervical junction. Control Room Supervisor: CITLALLI Transcribe Date/Time: May 16 2024 7:44A Dictated by : DOMENIC FORD MD This examination was interpreted and the report reviewed and electronically signed by: DOMENIC FORD MD on May 16 2024 7:54AM EST [facility] CT Cervical spine WO contras tOrdered By: Ccf Provider on 05-16-[address] [facility] [address] CERVICAL SPINE WO IVCONon 05-14-2024 CT CERVICAL SPINE WO IVCON * * *Final Report* * * DATE OF EXAM: May 14 2024 9:37AM [facility] 0505 - CT CERVICAL SPINE WO IVCON [...] Counting reference: Craniocervical junction. Anatomic Variants: None. Thread Spinner (topogram) images: No additional findings. Alignment: There [...] vertebrae with counting from the craniocervical junction. Control Room [facility] Transcribe Date/Time: May 16 2024 7:44A Dictated by : DOMENIC FORD MD This examination was interpreted and the report reviewed and electronically signed by: DOMENIC FORD MD on May 16 2024 7:54AM EST [id number] Normal [facility] CT Cervical spine WO contras ton 05-14-2024 Radiology Study observation (narrative) [facility] Basic metabolic 2000 panelon 05-12-2024 Anion gap [Moles/Vol] 11 mmol/L 8 - 15 mmol/L [facility] Calcium [Mass/Vol] 9.8 mg/dL 8.5 - 10. 2 mg/dL [facility] Chloride [Moles/Vol] 99 mmol/L 98 - 10 7 mmol/L [facility] CO2 [Moles/Vol] 28 mmol/L 22 - 30 mmol/L [facility] Creatinine [Mass/Vol] 0.91 mg/dL 0.73 - 1.22 mg/dL [facility] GFR/1.73 sq M.predicted among non-blacks MDRD (S/P/Bld) [Vol rate/Area] 92 mL/min/{1.73_m2} - PINF [facility] Comment on above: Estimated Glomerular Filtration Rate [...] 120 mg/dL High 74 - 99 mg/dL [facility] Comment on above: The [place] Di[employer] Association (ADA) provides guidance for [...] Standards of Medical Care in Diabetes 2016, [place] [employer]. Diabetes Care. 2016.39(Suppl 1). Interpretation and review of laboratory results Abnormal [facility] Potassium [Moles/Vol] 4.4 mmol/L 3.7 - 5.1 mmol/L [facility] Sodium [Moles/Vol] 138 mmol/L 136 - 144 mmol/L [facility] Urea nitrogen [Mass/Vol] 23 mg/dL 9 - 24 mg/dL [facility] Anion gap [Moles/Vol] 11 mmol/L Normal 8-15 [facility] Comment on above: Order Comment: Roberto Carlos lion Type: BLOOD SPECIMENOrdering Facility: [facility] Address: [address] [place] [address] Performed By: #### 5 0190-8, 40574-9, 2276-4 ####[facility] LABCLIA [id number] [place] [address] [place] Calcium [Mass/Vol] 9.8 mg/dL Normal 8.5-10.2 [facility] Comment on above: Order Comment: Roberto Carlos lion Type: BLOOD SPECIMENOrdering Facility: [facility] Address: [address] [place] [address] Performed By: #### 5 0190-8, 28108-1, 2275-4 ####[facility] LABIA [id number] [place] [address] [place] Chloride [Moles/Vol] 99 mmol/L Normal 98-107 [facility] Comment on above: Order Comment: Speci men Type: BLOOD SPECIMENOrdering Facility: [facility] Address: [address] [place] [address] Performed By: #### 5 0190-8, 88780-4, 2275- ####[facility] LABIA [id number] [place] [address] [place] CO2 [Moles/Vol] 28 mmol/L Normal 22-30 [facility] Comment on above: Order Comment: Speci men Type: BLOOD SPECIMENOrdering Facility: [facility] Address: [address] [place] [address] Performed By: #### 5 0190-8, 14324-8, 2275-06 ####[facility] LABIA [id number] [place] [address] [place] Creatinine [Mass/Vol] 0.91 mg/dL Normal 0.73-1.22 [facility] Comment on above: Order Comment: Speci men Type: BLOOD SPECIMENOrdering Facility: [facility] Address: [address] [place] [address] Performed By: #### 5 0190-8, 21061-4, 2275-06 ####[facility] LABIA [id number] [place] [address] [place] Creatinine and Glomerular filtration rate.predicted panel (S/P/Bld) 92 mL/min/1.73m??? Normal >=60 [facility] Comment on above: Order Comment: Speci men Type: BLOOD SPECIMENOrdering Facility: [facility] Address: [address] [place] [address] Result Comment: Yesica mated Glomerular Filtration Rate [...] actual GFR. Performed By: #### 5 0190-8, 79411-9, 2275- ####[facility] LABCLIA [id number] [place] [address] [place] Glucose [Mass/Vol] 120 mg/dL High 74-99 [facility] Comment on above: Order Comment: Speci men Type: BLOOD SPECIMENOrdering Facility: [facility] Address: [address] [place] [address] Result Comment: The [place] Diabetes Association (ADA) provides guidance for cutoff [...] Standards of Medical Care in Diabetes 2016, [place] [employer]. Diabetes Care. 2016.39(Suppl 1). Performed By: #### 5 0190-8, 64732-5, 2275-06 ####[facility] LABIA [id number] [place] [id number] [place] Potassium [Moles/Vol] 4.4 mmol/L Normal 3.7-5.1 [facility] Comment on above: Order Comment: Speci men Type: BLOOD SPECIMENOrdering Facility: [facility] Address: [address] [place] [address] Performed By: #### 5 0190-8, 77588-5, 2275- ####[facility] LABCLIA [id number] [address] [address] [place] Sodium [Moles/Vol] 138 mmol/L Normal 136-144 [facility] Comment on above: Order Comment: Speci men Type: BLOOD SPECIMENOrdering Facility: [facility] Address: [address] [place] [address] Performed By: #### 5 0190-8, 00184-1, 2275-06 ####[facility] LABCLIA [id number] [place] [address] [place] Urea nitrogen [Mass/Vol] 23 mg/dL Normal 9-24 [facility] Comment on above: Order Comment: Speci men Type: BLOOD SPECIMENOrdering Facility: [facility] Address: [address] [place] [address] Performed By: #### 5 0190-8, 66114-0, 2275-06 ####[facility] LABCLIA [id number] [place] [id number] [place] CBC W Auto Differential pane l (Bld)on 05-12-2024 Basophils (Bld) [#/Vol] 0.03 10*3/uL Normal <0.11 [facility] Comment on above: Order Comment: Speci men Type: BLOOD SPECIMENOrdering Facility: [facility] Address: [address] [place] [address] Performed By: #### 5 7021-8 ####[facility] LABCLIA [id number] [place] [id number] [place] Basophils/100 WBC (Bld) 0.3 % Normal [facility] Comment on above: Order Comment: Speci men Type: BLOOD SPECIMENOrdering Facility: [facility] Address: [address] [place] [address] Performed By: #### 5 7021-8 ####[facility] LABCLIA [id number] [address], [facility] [place] Differential cell count method Nom (Bld) Auto Normal [facility] Comment on above: Order Comment: Speci men Type: BLOOD SPECIMENOrdering Facility: [facility] Address: [address] [place] [address] Performed By: #### 5 7021-8 ####[facility] LABCLIA [id number] [address], [place] [address] [place] Eosinophils (Bld) [#/Vol] 10*3/uL Normal <0.46 [facility] Comment on above: Order Comment: Speci men Type: BLOOD SPECIMENOrdering Facility: [facility] Address: [address] [place] [address] Performed By: #### 5 7021-8 ####[facility] LABCLIA [id number] [address], [place] [address] [place] Eosinophils/100 WBC (Bld) 0.1 % Normal [facility] Comment on above: Order Comment: Speci men Type: BLOOD SPECIMENOrdering Facility: [facility] Address: [address] [place] [address] Performed By: #### 5 7021-8 ####[facility] LABCLIA [id number] [address], [place] [address] [place] Erythrocyte distribution width (RBC) [Ratio] 12.4 % Normal 11.5-15.0 [facility] Comment on above: Order Comment: Speci men Type: BLOOD SPECIMENOrdering Facility: [facility] Address: [address] [place] [address] Performed By: #### 5 7021-8 ####[facility] LABCLIA [id number] [address], [facility] [place] Hematocrit (Bld) [Volume fraction] 45.6 % Normal 39.0-51.0 [facility] Comment on above: Order Comment: Speci men Type: BLOOD SPECIMENOrdering Facility: [facility] Address: [address] [place] [address] Performed By: #### 5 7021-8 ####[facility] LABCLIA [id number] [place] [address] [place] Hemoglobin (Bld) [Mass/Vol] 14.9 g/dL Normal 13.0-17.0 [facility] Comment on above: Order Comment: Speci men Type: BLOOD SPECIMENOrdering Facility: [facility] Address: [address] [place] [address] Performed By: #### 5 7021-8 ####[facility] LABCLIA [id number] [place] [address] [place] Immature granulocytes (Bld) [#/Vol] 0.11 10*3/uL High <0.10 [facility] Comment on above: Order Comment: Speci men Type: BLOOD SPECIMENOrdering Facility: [facility] Address: [address] [place] [address] Performed By: #### 5 7021-8 ####[facility] LABCLIA [id number] [place] [address] [place] Immature granulocytes/100 WBC (Bld) 1.3 % Normal [facility] Comment on above: Order Comment: Speci men Type: BLOOD SPECIMENOrdering Facility: [facility] Address: [address] [place] [address] Performed By: #### 5 7021-8 ####[facility] LABCLIA [id number] [place] [address] [place] Lymphocytes (Bld) [#/Vol] 0.83 10*3/uL Low 1.00-4.00 [facility] Comment on above: Order Comment: Speci men Type: BLOOD SPECIMENOrdering Facility: [facility] Address: [address] [place] [address] Performed By: #### 5 7021-8 ####[facility] LABCLIA [id number] [place] [address] [place] Lymphocytes/100 WBC (Bld) 9.5 % Normal [facility] Comment on above: Order Comment: Speci men Type: BLOOD SPECIMENOrdering Facility: [facility] Address: [address] [place] [address] Performed By: #### 5 7021-8 ####[facility] LABIA [id number] [place] [address] [place] MCH (RBC) [Entitic mass] 31.0 pg Normal 26.0-34.0 [facility] Comment on above: Order Comment: Speci men Type: BLOOD SPECIMENOrdering Facility: [facility] Address: [address] [place] [address] Performed By: #### 5 7021-8 ####[facility] [id number] [place] [address] [place] MCHC (RBC) [Mass/Vol] 32.7 g/dL Normal 30.5-36.0 [facility] Comment on above: Order Comment: Speci men Type: BLOOD SPECIMENOrdering Facility: [facility] Address: [address] [place] [address] Performed By: #### 5 7021-8 ####[facility] [id number] [place] [address] [place] MCV (RBC) [Entitic vol] 94.8 fL Normal 80.0-100.0 [facility] Comment on above: Order Comment: Speci men Type: BLOOD SPECIMENOrdering Facility: [facility] Address: [address] [place] [address] Performed By: #### 5 7021-8 ####[facility] LABIA [id number] [place] [address] [place] Monocytes (Bld) [#/Vol] 0.26 10*3/uL Normal <0.87 [facility] Comment on above: Order Comment: Speci men Type: BLOOD SPECIMENOrdering Facility: [facility] Address: [address] [place] [address] Performed By: #### 5 7021-8 ####[facility] LABCLIA [id number] [address] [address] [place] Monocytes/100 WBC (Bld) 3.0 % Normal [facility] Comment on above: Order Comment: Speci men Type: BLOOD SPECIMENOrdering Facility: [facility] Address: [address] [place] [address] Performed By: #### 5 7021-8 ####[facility] LABCLIA [id number] [address], [facility] [place] Neutrophils (Bld) [#/Vol] 7.47 10*3/uL Normal 1.45-7.50 [facility] Comment on above: Order Comment: Speci men Type: BLOOD SPECIMENOrdering Facility: [facility] Address: [address] [place] [address] Performed By: #### 5 7021-8 ####[facility] LABCLIA [id number] [place] [id number] [place] Neutrophils/100 WBC (Bld) 85.8 % Normal [facility] Comment on above: Order Comment: Speci men Type: BLOOD SPECIMENOrdering Facility: [facility] Address: [address] [place], [place] [address] Performed By: #### 5 7021-8 ####[facility] LABCLIA [id number] [address] [address] [place] Nucleated RBC (Bld) [#/Vol] 10*3/uL Normal <0.01 [facility] Comment on above: Order Comment: Speci men Type: BLOOD SPECIMENOrdering Facility: [facility] Address: [address] [place], [place] [address] Performed By: #### 5 7021-8 ####[facility] LABCLIA [id number] [place] [address] [place] Nucleated RBC/100 WBC (Bld) [Ratio] 0.0 /100 WBC Normal [facility] Comment on above: Order Comment: Speci men Type: BLOOD SPECIMENOrdering Facility: [facility] Address: [address] [place] [address] Performed By: #### 5 7021-8 ####[facility] LABCLIA [id number] [place] [address] [place] Platelet mean volume (Bld) [Entitic vol] 10.0 fL Normal 9.0-12.7 [facility] Comment on above: Order Comment: Speci men Type: BLOOD SPECIMENOrdering Facility: [facility] Address: [address] [place] [address] Performed By: #### 5 7021-8 ####[facility] LABIA [id number] [place] [address] [place] Platelets (Bld) [#/Vol] 394 10*3/uL Normal 150-400 [facility] Comment on above: Order Comment: Speci men Type: BLOOD SPECIMENOrdering Facility: [facility] Address: [address] [place] [address] Performed By: #### 5 7021-8 ####[facility] LABIA [id number] [place] [address] [place] RBC (Bld) [#/Vol] 4.81 10*6/uL Normal 4.20-6.00 [facility] Comment on above: Order Comment: Speci men Type: BLOOD SPECIMENOrdering Facility: [facility] Address: [address] [place] [address] Performed By: #### 5 7021-8 ####[facility] LABIA [id number] [place] [address] [place] WBC (Bld) [#/Vol] 8.71 10*3/uL Normal 3.70-11.00 [facility] Comment on above: Order Comment: Speci men Type: BLOOD SPECIMENOrdering Facility: [facility] Address: [address] [place] [address] Performed By: #### 5 7021-8 ####[facility] LABCLIA [id number] [place] [address] [place] CNOVon 05-12-2024 CNOV Normal [facility] Ferritin SerPl-mCncon 2024 Ferritin [Mass/Vol] 204.0 ng/mL Normal 30.3-565.7 [facility] Comment on above: Order Comment: Speci men Type: BLOOD SPECIMENOrdering Facility: [facility] Address: [address] [place] [address] Performed By: #### 5 0190-8, 84537-0, 2275-4 ####[facility] LABCLIA [id number] [place] [address] [place] HISTORY PHYSICALon HISTORY PHYSICAL Normal [facility] Iron and Iron binding capaci ty panelon 05-12-2024 Iron [Mass/Vol] 81 ug/dL Normal 41-186 [facility] Comment on above: Order Comment: Speci men Type: BLOOD SPECIMENOrdering Facility: [facility] Address: [address] [place] [address] Performed By: #### 5 0190-8, 12640-1, 2275-4 ####[facility] LABCLIA [id number] [place] [id number] [place] Iron binding capacity [Mass/Vol] 342 ug/dL Normal 232-386 [facility] Comment on above: Order Comment: Speci men Type: BLOOD SPECIMENOrdering Facility: [facility] Address: [address] [place] [address] Performed By: #### 5 0190-8, 25951-0, 2275-4 ####[facility] LABCLIA [id number] [place] [address] [place] Iron/TIBC [Molar ratio] 23.7 % Normal 15.0-57.0 [facility] Comment on above: Order Comment: Speci men Type: BLOOD SPECIMENOrdering Facility: [facility] Address: [address] [place] [address] Performed By: #### 5 0190-8, 90573-1, 2276-4 ####[facility] LABCLIA [id number] [place] [address] [place] STAPHYLOCOCCUS AUREUS AND MR SA SCREEN, PCR, NASALon 05-12-2024 S. aureus and MRSA panel BARBARA+probe (Nose) Not detected Normal Not Detected [facility] Comment on above: Order Comment: Speci men Type: SWABOrdering Facility: [facility] Address: [address] [place] [address] Performed By: #### S APCR ####[facility] LABCLIA [id number] [place] [address] [place] TYPE AND SCREEN,30 DAYon ABO group Nom (Bld) O [facility] Blood group antibody screen Ql Negative [facility] Rh Nom (Bld) Negative [facility] ABO O Normal [facility] Comment on above: Order Comment: Speci men Type: BLOOD SPECIMENOrdering Facility: [facility] Address: [address] [place] [address] Performed By: #### T SCR30 ####[facility] BLOOD BANKCLIA [id number] [place] [address] [place] Rh Nom (Bld) Negative Normal [facility] Comment on above: Order Comment: Speci men Type: BLOOD SPECIMENOrdering Facility: [facility] Address: [address] [place] [address] Performed By: #### T SCR30 ####[facility] BLOOD BANKIA [id number] [address] [address] [place] MR Cervical spine [...] ALFONSO LOYD on 02/21/2024 5:11 PM via [employer] message. Control Room Supervisor: [employer] Transcribe Date/Time: Feb 21 2024 4:44P Dictated by : KEVIN MASON MD This examination was interpreted and the report reviewed and electronically signed by: KEVIN MASON MD on Feb 21 2024 8:57PM [facility] DIVISION OF RADIOLOGY * * *Final Report* * * DATE OF EXAM: Feb 21 2024 4:37PM [facility] - MRI CERVICAL SPINE WO IVCON [...] and facet hypertrophy DIVISION OF RADIOLOGY Provider, [facility] - 02/21/2024 * * *Final Report* [...] ALFONSO LOYD on 02/21/2024 5:11 PM via [employer] message. Control Room Super[facility]: [facility] Transcribe Date/Time: Feb 21 2024 4:44P Dictated by : KEVIN MASON MD This examination was interpreted and the report reviewed and electronically signed by: KEVIN MASON MD on Feb 21 2024 8:57PM EST [facility] Radiology Study observation (narrative) [facility] MR Cervical spine WO contras tOrdered By: Ccf Provider on 02-21-2024 [facility] MRI CERVICAL SPINE WO IVCONo n 02-21-2024 MRI CERVICAL SPINE WO IVCON Normal [facility] CNPNon 02-03-2024 CNPN Normal [facility] CNOVon 01-13-2024 CNOV Normal [facility] CT LUMBAR SPINE WO IVCONon 1 03-14-2023 CT LUMBAR SPINE WO IVCON Normal [facility] CT Lumbar spine WO contrasto n 01-13-2024 IMPRESSION: Interval L4-5 right facetectomy. Stable additional prior postoperative changes as described. Healing fracture along L5 pedicle screws. 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 Anatomic Lumbar Variant: Transitional L5 vertebral body. L4-5 is considered the level of the iliac crest and there are 5 lumbar-type vertebrae. Control Room Supervisor[facility] Transcribe Date/Time: Jan 13 2024 9:06A Dictated by : MORGAN SANCHEZ MD This examination was interpreted and the report reviewed and electronically signed by: ADALBERTO MAYS MD on Jan 13 2024 11:37AM [facility] DIVISION OF RADIOLOGY * * *Final Report* * * DATE OF EXAM: Jan 13 2024 8:57AM [facility] 0508 - CT LUMBAR SPINE WO IVCON [...] vertebrae. Anatomic variant: Transitional L5 vertebral body. Thread Spinner (topogram) images: No additional findings. Alignment: There [...] within normal limits. DIVISION OF RADIOLOGY Provider, [facility] - 01/13/2024 * * *Final Report* * * DATE OF EXAM: Jan 13 2024 8:57AM [facility] 0508 - CT LUMBAR SPINE WO IVCON [...] vertebrae. Anatomic variant: Transitional L5 vertebral body. Thread Spinner (topogram) images: No additional findings. Alignment: There [...] crest and there are 5 lumbar-type vertebrae. Control Room Supervisor: [employer] Transcribe Date/Time: Jan 13 2024 9:06A Dictated by : MORGAN SANCHEZ MD This examination was interpreted and the report reviewed and electronically signed by: ADALBERTO MAYS MD on Jan 13 2024 11:37AM EST [facility] CT Lumbar spine WO contrastO rdered By: Ccf Provider on 01-13-2024 [facility] EMG(NEURO/NI)on 01-13-2024 Results can be seen in attached scanned documents. If you are a patient reviewing this test result, call the doctor who ordered the test with any questions. [facility] MR Lumbar spine WO contrasto n 01-13-2024 [...] normal in appearance. DIVISION OF RADIOLOGY Provider, [facility] - 01/13/2024 * * *Final Report* [...] if clinically judy (more content not included)... [facility] Radiology Study observation (narrative) [facility] MR Thoracic spine WO contras ton 01-13-2024 [...] normal in appearance. DIVISION OF RADIOLOGY Provider[facility] * [...] if clinically a (more content not included)... [facility] MRI LUMBAR SPINE WO IVCONon 01-13-2024 MRI LUMBAR SPINE WO IVCON Invalid Interpretation Code [facility] MRI THORACIC SPINE WO IVCONo n 01-13-2024 MRI THORACIC SPINE WO IVCON Invalid Interpretation Code [facility] No Panel InformationOrdered By: Ccf Provider on 01-13-2024 Interpretation and review of laboratory results Abnormal [facility] Radiology Result ACTIONABLE Abnormal [facility] Comment on above: This report contains [...] contact your provider for the next steps. [facility] No Panel Informationon 01-12 IMPRESSION: * Susceptibility [...] be communicated with the ordering provider via [employer] staff message or phone message by [facility] [employer] [facility] within 2 business days of report finalization. --END OF FINDING-- ACTIONABLE RESULT: FOLLOW-UP Acuity: Actionable Findings: Neurological System-SPINE Routing Code: NI_2 Recommendation: Unlisted Recommendation (see report) Time Frame: At the discretion of the clinical team. COMMUNICATION: Results will be communicated with the ordering provider via [employer] staff message or phone message by [facility] within 2 business days of report finalization. --END OF FINDING-- Control Room Supervisor: CITLALLI Transcribe Date/Time: Jan 13 2024 8:57A Dictated by : TWAN SANTO MD This examination was interpreted and the report reviewed and electronically signed by: TWAN SANTO MD on Jan 13 2024 3:52PM [facility] DIVISION OF RADIOLOGY Radiology Study observation (narrative) [facility] Ambulatory Visit Summaryon 1 Ambulatory Visit Summary [...] for choosing us for your care. Paramjit [facility] General Surgery Office/Clini c Noteon 12-16-2023 [...] trivalent - Not Given Patient Refuses Normal [facility] Comment on above: Result Comment: Elec tronically Signed By: VAMSI JERNIGAN, Camryn Baker\Date and Time Signed: 12/16/23 13:13 EDT CNPNon 12-05-2023 CNPN Normal [facility] 11-26-2023 L Specimen: [id number] Received: 11/27/23 Status: CASANDRA Thurman Num: [id number] Spec Type: Surgical Subm Dr: Camryn Agustin MD FACS Tissues: A Colon Biopsy (CECAL COLON POLYP) Procedures: HE/2, Gross/Micro L4 Age/ Patient Sex Location Account Attending Physician Braden Rodriguez 68/M LABELL [id number] Camryn Agustin MD FACS SPEC NUM: [id number] RECD: 11/27/23 STATUS: CASANDRA THURMAN NUM: [id number] KIM: 11/26/[address] [facility] [address]: Camrny Agustin MD FACS ENTERED: 11/27/[address] [facility] [address]: Javed,Kale SPEC TYPE: Surgical DEPT: ANI [facility]WILLI[facility] ENTERED BY: [id number] RECV BY: [id number] ORDERED: HE/2, Gross/Micro L4 ORDERED: HE/2, Gross/Micro [...] cassette A1. CPT Codes 88 305 Specimen: [id number] Received: 11/27/23 Status: CASANDRA Thurman Num: [id number] Spec Type: Surgical Subm Dr: Camryn Agustin MD FACS Tissues: A Colon Biopsy (CECAL COLON POLYP) Procedures: HE/2, Gross/Micro L4 Patient: Braden Rodriguez [id number] (Continued) Signed (signature on file) Edward Byers MD 12/02/23 1557 Normal [facility] CNOVon 11-12-2023 CNOV Normal [facility] XR LUMBAR 2V AP/LATon 2023 XR LUMBAR 2V AP/LAT Normal [facility] XR Lumbar spine AP and Later dustin 11-12-2023 IMPRESSION: Intact spinal fusion hardware. Vertebral body heights and sagittal alignment are maintained. Control Room Supervisor: [facility] Transcribe Date/Time: Nov 12 2023 1:25P Dictated by : LONNIE HERNANDEZ MD This examination was interpreted and the report reviewed and electronically signed by: LONNIE HERNANDEZ MD on Nov 12 2023 1:25PM [facility] DIVISION OF RADIOLOGY * * *Final Report* [...] body heights and sagittal alignment are maintained. Control Room Supervisor: PSCB Transcribe Date/Time: Nov 12 2023 1:25P Dictated by : LONNIE HERNANDEZ MD This examination was interpreted and the report reviewed and electronically signed by: LONNIE HERNANDEZ MD on Nov 12 2023 1:25PM EST [facility] Radiology Study observation (narrative) [facility] XR Lumbar spine AP and Later alOrdered By: Ccf Provider on 11-12-2023 [facility] CNPNon 11-05-2023 CNPN Normal [facility] CNPNon 10-16-2023 CNPN Normal [facility] CNCOon 10-06-2023 CNCO Letter Text Normal [facility] Basic metabolic 2000 panelon 10-04-2023 Anion gap [Moles/Vol] 10 mmol/L Normal 8-15 [facility] Comment on above: Order Comment: Speci men Type: BLOOD SPECIMENOrdering Facility: [facility] Address: [address] [place] [address] Performed By: #### 2 4321-2 ####[facility] LABIA [id number] [place] [address] [place] Calcium [Mass/Vol] 9.4 mg/dL Normal 8.5-10.2 [facility] Comment on above: Order Comment: Speci men Type: BLOOD SPECIMENOrdering Facility: [facility] Address: [address] [place] [address] Performed By: #### 2 4321-2 ####[facility] LABCLIA [id number] [place] [address] [place] Chloride [Moles/Vol] 104 mmol/L Normal 98-107 [facility] Comment on above: Order Comment: Speci men Type: BLOOD SPECIMENOrdering Facility: [facility] Address: [address] [place] [address] Performed By: #### 2 4321-2 ####[facility] LABCLIA [id number] [place] [address] [place] CO2 [Moles/Vol] 27 mmol/L Normal 22-30 [facility] Comment on above: Order Comment: Speci men Type: BLOOD SPECIMENOrdering Facility: [facility] Address: [address] [place] [address] Performed By: #### 2 4321-2 ####[facility] LABCLIA [id number] [place] [address] [place] Creatinine [Mass/Vol] 0.83 mg/dL Normal 0.73-1.22 [facility] Comment on above: Order Comment: Speci men Type: BLOOD SPECIMENOrdering Facility: [facility] Address: [address] [place] [address] Performed By: #### 2 4321-2 ####[facility] LABIA [id number] [place] [address] [place] Creatinine and Glomerular filtration rate.predicted panel (S/P/Bld) 97 mL/min/1.73m??? Normal >=60 [facility] Comment on above: Order Comment: Speci men Type: BLOOD SPECIMENOrdering Facility: [facility] Address: [address] [place] [address] Result Comment: Yesica mated Glomerular Filtration Rate [...] actual GFR. Performed By: #### 2 4321-2 ####[facility] LABCLIA [id number] [place] [address] [place] Glucose [Mass/Vol] 100 mg/dL High 74-99 [facility] Comment on above: Order Comment: Speci men Type: BLOOD SPECIMENOrdering Facility: [facility] Address: [address] [place] [address] Result Comment: The [place] [employer] (ADA) provides guidance for cutoff [...] Standards of Medical Care in Diabetes 2016, [place] [employer]. Diabetes Care. 2016.39(Suppl 1). Performed By: #### 2 4321-2 ####[facility] LABCLIA [id number] [place] [address] [place] Potassium [Moles/Vol] 3.9 mmol/L Normal 3.7-5.1 [facility] Comment on above: Order Comment: Speci men Type: BLOOD SPECIMENOrdering Facility: [facility] Address: [address] [place] [address] Performed By: #### 2 4321-2 ####[facility] LABCLIA [id number] [place] [address] [place] Sodium [Moles/Vol] 141 mmol/L Normal 136-144 [facility] Comment on above: Order Comment: Speci men Type: BLOOD SPECIMENOrdering Facility: [facility] Address: [address] [place] [address] Performed By: #### 2 4321-2 ####[facility] LABCLIA [id number] [place] [address] [place] Urea nitrogen [Mass/Vol] 15 mg/dL Normal 9-24 [facility] Comment on above: Order Comment: Speci men Type: BLOOD SPECIMENOrdering Facility: [facility] Address: [address] [place] [address] Performed By: #### 2 4321-2 ####[facility] LABCLIA [id number] [place] [address] [place] CBC panel Auto (Bld)on 10-03 Erythrocyte distribution width (RBC) [Ratio] 12.4 % Normal 11.5-15.0 [facility] Comment on above: Order Comment: Speci men Type: BLOOD SPECIMENOrdering Facility: [facility] Address: [address] [place] [address] Performed By: #### 5 8410-2 ####[facility] LABIA [id number] [place] [address] [place] Hematocrit (Bld) [Volume fraction] 37.6 % Low 39.0-51.0 [facility] Comment on above: Order Comment: Speci men Type: BLOOD SPECIMENOrdering Facility: [facility] Address: [address] [place] [address] Performed By: #### 5 8410-2 ####[facility] LABIA [id number] [place] [address] [place] Hemoglobin (Bld) [Mass/Vol] 12.1 g/dL Low 13.0-17.0 [facility] Comment on above: Order Comment: Speci men Type: BLOOD SPECIMENOrdering Facility: [facility] Address: [address] [place] [address] Performed By: #### 5 8410-2 ####[facility] LABIA [id number] [place] [address] [place] MCH (RBC) [Entitic mass] 32.5 pg Normal 26.0-34.0 [facility] Comment on above: Order Comment: Speci men Type: BLOOD SPECIMENOrdering Facility: [facility] Address: [address] [place] [address] Performed By: #### 5 8410-2 ####[facility] LABCLIA [id number] [place] [address] [place] MCHC (RBC) [Mass/Vol] 32.2 g/dL Normal 30.5-36.0 [facility] Comment on above: Order Comment: Speci men Type: BLOOD SPECIMENOrdering Facility: [facility] Address: [address] [place] [address] Performed By: #### 5 8410-2 ####[facility] LABCLIA [id number] [place] [address] [place] MCV (RBC) [Entitic vol] 101.1 fL High 80.0-100.0 [facility] Comment on above: Order Comment: Speci men Type: BLOOD SPECIMENOrdering Facility: [facility] Address: [address] [place] [address] Performed By: #### 5 8410-2 ####[facility] LABIA [id number] [place] [address] [place] Nucleated RBC (Bld) [#/Vol] 10*3/uL Normal <0.01 [facility] Comment on above: Order Comment: Speci men Type: BLOOD SPECIMENOrdering Facility: [facility] Address: [address] [place] [address] Performed By: #### 5 8410-2 ####[facility] LABCLIA [id number] [place] [address] [place] Platelet mean volume (Bld) [Entitic vol] 10.1 fL Normal 9.0-12.7 [facility] Comment on above: Order Comment: Speci men Type: BLOOD SPECIMENOrdering Facility: [facility] Address: [address] [place] [address] Performed By: #### 5 8410-2 ####[facility] LABCLIA [id number] [place] [address] [place] Platelets (Bld) [#/Vol] 352 10*3/uL Normal 150-400 [facility] Comment on above: Order Comment: Speci men Type: BLOOD SPECIMENOrdering Facility: [facility] Address: [address] [place] [address] Performed By: #### 5 8410-2 ####[facility] LABIA [id number] [place] [address] [place] RBC (Bld) [#/Vol] 3.72 10*6/uL Low 4.20-6.00 [facility] Comment on above: Order Comment: Speci men Type: BLOOD SPECIMENOrdering Facility: [facility] Address: [address] [place] [address] Performed By: #### 5 8410-2 ####[facility] LABIA [id number] [place] [address] [place] WBC (Bld) [#/Vol] 10.84 10*3/uL Normal 3.70-11.00 [facility] Comment on above: Order Comment: Speci men Type: BLOOD SPECIMENOrdering Facility: [facility] Address: [address] [place] [address] Performed By: #### 5 8410-2 ####[facility] LABIA [id number] [place] [address] [place] THERAPY NTon 10-04-2023 THERAPY NT Normal [facility] Basic metabolic 2000 panelon 10-03-2023 Anion gap [Moles/Vol] 10 mmol/L Normal 8-15 [facility] Comment on above: Order Comment: Speci men Type: BLOOD SPECIMENOrdering Facility: [facility] Address: [address] [place] [address] Performed By: #### 2 4321-2 ####[facility] LABCLIA [id number] [id number] [address] [place] Calcium [Mass/Vol] 9.0 mg/dL Normal 8.5-10.2 [facility] Comment on above: Order Comment: Speci men Type: BLOOD SPECIMENOrdering Facility: [facility] Address: [address] [place] [address] Performed By: #### 2 4321-2 ####[facility] LABCLIA [id number] [place] [address] [place] Chloride [Moles/Vol] 105 mmol/L Normal 98-107 [facility] Comment on above: Order Comment: Speci men Type: BLOOD SPECIMENOrdering Facility: [facility] Address: [address] [place] [address] Performed By: #### 2 4321-2 ####[facility] LABCLIA [id number] [place] [address] [place] CO2 [Moles/Vol] 23 mmol/L Normal 22-30 [facility] Comment on above: Order Comment: Speci men Type: BLOOD SPECIMENOrdering Facility: [facility] Address: [address] [place] [address] Performed By: #### 2 4321-2 ####[facility] LABCLIA [id number] [place] [address] [place] Creatinine [Mass/Vol] 0.92 mg/dL Normal 0.73-1.22 [facility] Comment on above: Order Comment: Speci men Type: BLOOD SPECIMENOrdering Facility: [facility] Address: [address] [place] [address] Performed By: #### 2 4321-2 ####[facility] LABCLIA [id number] [place] [address] [place] Creatinine and Glomerular filtration rate.predicted panel (S/P/Bld) 92 mL/min/1.73m??? Normal >=60 [facility] Comment on above: Order Comment: Speci men Type: BLOOD SPECIMENOrdering Facility: [facility] Address: [address] [place] [address] Result Comment: Yesica mated Glomerular Filtration Rate [...] actual GFR. Performed By: #### 2 4321-2 ####[facility] [id number] [place] [address] [place] Glucose [Mass/Vol] 121 mg/dL High 74-99 [facility] Comment on above: Order Comment: Roberto Carlos lion Type: BLOOD SPECIMENOrdering Facility: [facility] Address: [address] [place] [address] Result Comment: The [place] [employer] (ADA) provides guidance for cutoff [...] Standards of Medical Care in Diabetes 2016, [place] [employer]. Diabetes Care. 2016.39(Suppl 1). Performed By: #### 2 4321-2 ####[facility] [id number] [place] [address] [place] Potassium [Moles/Vol] 4.0 mmol/L Normal 3.7-5.1 [facility] Comment on above: Order Comment: Roberto Carlos lion Type: BLOOD SPECIMENOrdering Facility: [facility] Address: [address] [place] [address] Performed By: #### 2 4321-2 ####[facility] LABCLIA [id number] [place] [address] [place] Sodium [Moles/Vol] 138 mmol/L Normal 136-144 [facility] Comment on above: Order Comment: Speci men Type: BLOOD SPECIMENOrdering Facility: [facility] Address: [address] [place] [address] Performed By: #### 2 4321-2 ####[facility] LABCLIA [id number] [place] [address] [place] Urea nitrogen [Mass/Vol] 21 mg/dL Normal 9-24 [facility] Comment on above: Order Comment: Speci men Type: BLOOD SPECIMENOrdering Facility: [facility] Address: [address] [place] [address] Performed By: #### 2 4321-2 ####[facility] LABIA [id number] [place] [address] [place] CASE MGT INIT ASSESon 2023 CASE MGT INIT ASSES Normal [facility] CBC panel Auto (Bld)on 10-02 Erythrocyte distribution width (RBC) [Ratio] 11.9 % Normal 11.5-15.0 [facility] Comment on above: Order Comment: Speci men Type: BLOOD SPECIMENOrdering Facility: [facility] Address: [address] [place] [address] Performed By: #### 5 8410-2 ####[facility] LABIA [id number] [place] [address] [place] Hematocrit (Bld) [Volume fraction] 35.0 % Low 39.0-51.0 [facility] Comment on above: Order Comment: Speci men Type: BLOOD SPECIMENOrdering Facility: [facility] Address: [address] [place] [address] Performed By: #### 5 8410-2 ####[facility] LABCLIA [id number] [place] [address] [place] Hemoglobin (Bld) [Mass/Vol] 11.5 g/dL Low 13.0-17.0 [facility] Comment on above: Order Comment: Speci men Type: BLOOD SPECIMENOrdering Facility: [facility] Address: [address] [place] [address] Performed By: #### 5 8410-2 ####[facility] LABIA [id number] [place] [address] [place] MCH (RBC) [Entitic mass] 32.0 pg Normal 26.0-34.0 [facility] Comment on above: Order Comment: Speci men Type: BLOOD SPECIMENOrdering Facility: [facility] Address: [address] [place] [address] Performed By: #### 5 8410-2 ####[facility] LABIA [id number] [place] [address] [place] MCHC (RBC) [Mass/Vol] 32.9 g/dL Normal 30.5-36.0 [facility] Comment on above: Order Comment: Speci men Type: BLOOD SPECIMENOrdering Facility: [facility] Address: [address] [place] [address] Performed By: #### 5 8410-2 ####[facility] LABIA [id number] [place] [address] [place] MCV (RBC) [Entitic vol] 97.5 fL Normal 80.0-100.0 [facility] Comment on above: Order Comment: Speci men Type: BLOOD SPECIMENOrdering Facility: [facility] Address: [address] [place] [address] Performed By: #### 5 8410-2 ####[facility] LABCLIA [id number] [place] [address] [place] Nucleated RBC (Bld) [#/Vol] 10*3/uL Normal <0.01 [facility] Comment on above: Order Comment: Speci men Type: BLOOD SPECIMENOrdering Facility: [facility] Address: [address] [place] [address] Performed By: #### 5 8410-2 ####[facility] LABIA [id number] [place] [address] [place] Platelet mean volume (Bld) [Entitic vol] 10.4 fL Normal 9.0-12.7 [facility] Comment on above: Order Comment: Speci men Type: BLOOD SPECIMENOrdering Facility: [facility] Address: [address] [place] [address] Performed By: #### 5 8410-2 ####[facility] LABIA [id number] [place] [address] [place] Platelets (Bld) [#/Vol] 354 10*3/uL Normal 150-400 [facility] Comment on above: Order Comment: Speci men Type: BLOOD SPECIMENOrdering Facility: [facility] Address: [address] [place] [address] Performed By: #### 5 8410-2 ####[facility] LABIA [id number] [place] [address] [place] RBC (Bld) [#/Vol] 3.59 10*6/uL Low 4.20-6.00 [facility] Comment on above: Order Comment: Speci men Type: BLOOD SPECIMENOrdering Facility: [facility] Address: [address] [place] [address] Performed By: #### 5 8410-2 ####[facility] LABIA [id number] [place] [address] [place] WBC (Bld) [#/Vol] 11.20 10*3/uL High 3.70-11.00 [facility] Comment on above: Order Comment: Speci men Type: BLOOD SPECIMENOrdering Facility: [facility] Address: [address] [place] [address] Performed By: #### 5 8410-2 ####[facility] LABCLIA [id number] [place] [address] [place] CNDSon 10-03-2023 CNDS Normal [facility] THERAPY NTon 10-03-2023 THERAPY NT Normal [facility] NT Normal [facility] ANES POSTPROC EVALon 024 ANES POSTPROC EVAL Normal [facility] ANES PRE-OPon 10-02-2023 ANES PRE-OP Normal [facility] BRIEF OP NOTon 10-02-2023 BRIEF OP NOT Normal [facility] OPERATIVE NOon 10-02-2023 OPERATIVE NO Normal [facility] TYPE + SCREENon 10-02-2023 ABO O Normal [facility] Comment on above: Order Comment: Speci men Type: BLOOD SPECIMENOrdering Facility: [facility] Address: [address] [place] [address] Performed By: #### T SCR ####[facility] BANKCLIA [id number] [place] [address] [place] HISTORICAL AB SCR STATUS Negative Normal [facility] Comment on above: Order Comment: Speci men Type: BLOOD SPECIMENOrdering Facility: [facility] Address: [address] [place] [address] Performed By: #### T SCR ####[facility] MA[facility] BLOOD BANKCLIA [id number] [place] [address] [place] Rh Nom (Bld) Negative Normal [facility] Comment on above: Order Comment: Speci men Type: BLOOD SPECIMENOrdering Facility: [facility] Address: [address] [place] [address] Performed By: #### T SCR ####[facility] BLOOD BANKCLIA [id number] [place] [address] [place] TYPE AND SCREEN EXPIRATION 10/05/2023 23:59 Normal [facility] Comment on above: Order Comment: Speci men Type: BLOOD SPECIMENOrdering Facility: [facility] Address: [address] [place] [address] Performed By: #### T SCR ####CC [facility] [id number] [place] [address] [place] XR LUMBAR SPECIFY 1Von 10-01 XR LUMBAR SPECIFY 1V Normal [facility] CNNURSEon 09-30-2023 CNNURSE Normal [facility] CNPNon 09-30-2023 CNPN Normal [facility] CNPNon 09-24-2023 CNPN Normal [facility] CNPNon 09-16-2023 CNPN Normal [facility] CNCOon 09-15-2023 CNCO Letter Text Normal [facility] ALLIED HEALTHon 09-10-2023 ALLIED HEALTH Normal [facility] Basic metabolic 2000 panelon 09-10-2023 Anion gap [Moles/Vol] 10 mmol/L Normal 8-15 [facility] Comment on above: Order Comment: Speci men Type: BLOOD SPECIMENOrdering Facility: [facility] Address: [address] [place] [address] Performed By: #### 2 4321-2 ####[facility] LABIA [id number] [place] [address] [place] Calcium [Mass/Vol] 9.6 mg/dL Normal 8.5-10.2 [facility] Comment on above: Order Comment: Speci men Type: BLOOD SPECIMENOrdering Facility: [facility] Address: [address] [place] [address] Performed By: #### 2 4321-2 ####[facility] LABIA [id number] [place] [address] [place] Chloride [Moles/Vol] 102 mmol/L Normal 98-107 [facility] Comment on above: Order Comment: Speci men Type: BLOOD SPECIMENOrdering Facility: [facility] Address: [address] [place] [address] Performed By: #### 2 4321-2 ####[facility] LABCLIA [id number] [place] [address] [place] CO2 [Moles/Vol] 27 mmol/L Normal 22-30 [facility] Comment on above: Order Comment: Speci men Type: BLOOD SPECIMENOrdering Facility: [facility] Address: [address] [place] [address] Performed By: #### 2 4321-2 ####[facility] LABIA [id number] [place] [address] [place] Creatinine [Mass/Vol] 0.88 mg/dL Normal 0.73-1.22 [facility] Comment on above: Order Comment: Speci men Type: BLOOD SPECIMENOrdering Facility: [facility] Address: [address] [place] [address] Performed By: #### 2 4321-2 ####[facility] LABIA [id number] [place] [address] [place] Creatinine and Glomerular filtration rate.predicted panel (S/P/Bld) 95 mL/min/1.73m??? Normal >=60 [facility] Comment on above: Order Comment: Speci men Type: BLOOD SPECIMENOrdering Facility: [facility] Address: [address] [place] [address] Result Comment: Yesica mated Glomerular Filtration Rate [...] actual GFR. Performed By: #### 2 4321-2 ####[facility] LABIA [id number] [place] [id number] [place] Glucose [Mass/Vol] 82 mg/dL Normal 74-99 [facility] Comment on above: Order Comment: Speci men Type: BLOOD SPECIMENOrdering Facility: [facility] Address: [address] [place] [address] Result Comment: The [place] [employer] (ADA) provides guidance for cutoff [...] Standards of Medical Care in Diabetes 2016, [place] [employer]. Diabetes Care. 2016.39(Suppl 1). Performed By: #### 2 4321-2 ####[facility] LABCLIA [id number] [place] [address] [place] Potassium [Moles/Vol] 4.3 mmol/L Normal 3.7-5.1 [facility] Comment on above: Order Comment: Speci men Type: BLOOD SPECIMENOrdering Facility: [facility] Address: [address] [place] [id number] Performed By: #### 2 4321-2 ####[facility] LABCLIA [id number] [place] [address] [place] Sodium [Moles/Vol] 139 mmol/L Normal 136-144 [facility] Comment on above: Order Comment: Speci men Type: BLOOD SPECIMENOrdering Facility: [facility] Address: [address] [place] [address] Performed By: #### 2 4321-2 ####[facility] LABCLIA [id number] [place] [address] [place] Urea nitrogen [Mass/Vol] 22 mg/dL Normal 9-24 [facility] Comment on above: Order Comment: Speci men Type: BLOOD SPECIMENOrdering Facility: [facility] Address: [address] [place], [place] [address] Performed By: #### 2 4321-2 ####[facility] LABCLIA [id number] [place] [id number] [place] CASE MANAGEMon 09-10-2023 CASE MANAGEM Normal [facility] CASE MANAGEM Normal [facility] CNDSon 09-10-2023 CNDS Normal [facility] MRI LUMBAR SPINE WO IVCONon 09-10-2023 MRI LUMBAR SPINE WO IVCON Normal [facility] THERAPY NTon 09-10-2023 THERAPY NT Normal [facility] CASE MANAGEMon 09-09-2023 CASE MANAGEM Normal [facility] Magnesium SerPl-mCncon 09-08 Magnesium [Mass/Vol] 2.1 mg/dL Normal 1.7-2.3 [facility] Comment on above: Order Comment: Speci men Type: BLOOD SPECIMENOrdering Facility: [facility] Address: [address] [place] [address] Performed By: #### 1 9123-9, 51949-7 ####[facility] LABCLIA [id number] [place] [address] [place] Renal function 2000 panelon 09-09-2023 Albumin [Mass/Vol] 3.9 g/dL Normal 3.9-4.9 [facility] Comment on above: Order Comment: Speci men Type: BLOOD SPECIMENOrdering Facility: [facility] Address: [address] [place] [address] Performed By: #### 1 9123-9, 61386-6 ####[facility] LABCLIA [id number] [place] [address] [place] Anion gap [Moles/Vol] 13 mmol/L Normal 8-15 [facility] Comment on above: Order Comment: Speci men Type: BLOOD SPECIMENOrdering Facility: [facility] Address: [address] [place] [address] Performed By: #### 1 9123-9, 21420-5 ####[facility] LABCLIA [id number] [facility] [address] [place] Calcium [Mass/Vol] 9.7 mg/dL Normal 8.5-10.2 [facility] Comment on above: Order Comment: Speci men Type: BLOOD SPECIMENOrdering Facility: [facility] Address: [address] [place] [address] Performed By: #### 1 9123-9, 40002-0 ####[facility] LABCLIA [id number] [place] [address] [place] Chloride [Moles/Vol] 101 mmol/L Normal 98-107 [facility] Comment on above: Order Comment: Speci men Type: BLOOD SPECIMENOrdering Facility: [facility] Address: [address] [place] [address] Performed By: #### 1 9123-9, 02318-7 ####[facility] LABCLIA [id number] [place] [address] [place] CO2 [Moles/Vol] 25 mmol/L Normal 22-30 [facility] Comment on above: Order Comment: Speci men Type: BLOOD SPECIMENOrdering Facility: [facility] Address: [address] [place] [address] Performed By: #### 1 9123-9, 97811-5 ####[facility] LABCLIA [id number] [place] [address] [place] Creatinine [Mass/Vol] 0.99 mg/dL Normal 0.73-1.22 [facility] Comment on above: Order Comment: Speci men Type: BLOOD SPECIMENOrdering Facility: [facility] Address: [address] [place] [address] Performed By: #### 1 9123-9, 68763-2 ####[facility] LABCLIA [id number] [place] [address] [place] Creatinine and Glomerular filtration rate.predicted panel (S/P/Bld) 84 mL/min/1.73m??? Normal >=60 [facility] Comment on above: Order Comment: Roberto Carlos lion Type: BLOOD SPECIMENOrdering Facility: [facility] Address: [address] [place] [address] Result Comment: Yesica mated Glomerular Filtration Rate [...] actual GFR. Performed By: #### 1 9123-9, 16206-5 ####[facility] LABCLIA [id number] [place] [address] [place] Glucose [Mass/Vol] 123 mg/dL High 74-99 [facility] Comment on above: Order Comment: Roberto Carlos lion Type: BLOOD SPECIMENOrdering Facility: [facility] Address: [address] [place] [address] Result Comment: The [place] Diabetes Association (ADA) provides guidance for cutoff [...] Standards of Medical Care in Diabetes 2016, [place] [employer]. Diabetes Care. 2016.39(Suppl 1). Performed By: #### 1 9123-9, 41941-4 ####[facility] LABIA [id number] [place] [address] [place] Phosphate [Mass/Vol] 3.3 mg/dL Normal 2.7-4.8 [facility] Comment on above: Order Comment: Speci men Type: BLOOD SPECIMENOrdering Facility: [facility] Address: [address] [place] [address] Performed By: #### 1 9123-9, 92271-3 ####[facility] LABCLIA [id number] [place] [address] [place] Potassium [Moles/Vol] 4.4 mmol/L Normal 3.7-5.1 [facility] Comment on above: Order Comment: Speci men Type: BLOOD SPECIMENOrdering Facility: [facility] Address: [address] [place] [address] Performed By: #### 1 9123-9, 28580-3 ####[facility] LABCLIA [id number] [place] [address] [place] Sodium [Moles/Vol] 139 mmol/L Normal 136-144 [facility] Comment on above: Order Comment: Speci men Type: BLOOD SPECIMENOrdering Facility: [facility] Address: [address] [place] [address] Performed By: #### 1 9123-9, 78729-2 ####[facility] LABCLIA [id number] [place] [address] [place] Urea nitrogen [Mass/Vol] 25 mg/dL High 9-24 [facility] Comment on above: Order Comment: Speci men Type: BLOOD SPECIMENOrdering Facility: [facility] Address: [address] [place] [address] Performed By: #### 1 9123-9, 77925-1 ####[facility] LABCLIA [id number] [place] [id number] [place] THERAPY NTon 09-09-2023 THERAPY NT Normal [facility] THERAPY NT Normal [facility] CASE MGT INIT ASSESon 2023 CASE MGT INIT ASSES Normal [facility] ED PROV NOTEon 09-08-2023 ED PROV NOTE Normal [facility] HISTORY PHYSICALon HISTORY PHYSICAL Normal [facility] CBC W Auto Differential pane l (Bld)on 09-07-2023 Basophils (Bld) [#/Vol] 0.00 10*3/uL Normal <0.11 [facility] Comment on above: Order Comment: Speci men Type: BLOOD SPECIMENOrdering Facility: [facility] Address: [address] [place] [address] Performed By: #### 5 7021-8, 4537-7 ####[facility] LABCLIA [id number] [place] [address] [place] Basophils/100 WBC (Bld) 0.0 % Normal [facility] Comment on above: Order Comment: Speci men Type: BLOOD SPECIMENOrdering Facility: [facility] Address: [address] [place] [address] Performed By: #### 5 7021-8, 4537-7 ####[facility] LABCLIA [id number] [place] [address] [place] Differential cell count method Nom (Bld) Manual Normal [facility] Comment on above: Order Comment: Speci men Type: BLOOD SPECIMENOrdering Facility: [facility] Address: [address] [place] [address] Performed By: #### 5 7021-8, 4537-7 ####[facility] LABCLIA [id number] [facility] [place] [address] [place] Eosinophils (Bld) [#/Vol] 0.00 10*3/uL Normal <0.46 [facility] Comment on above: Order Comment: Speci men Type: BLOOD SPECIMENOrdering Facility: [facility] Address: [address] [place] [address] Performed By: #### 5 7021-8, 4537-7 ####[facility] LABCLIA [id number] [place] [address] [place] Eosinophils/100 WBC (Bld) 0.0 % Normal [facility] Comment on above: Order Comment: Speci men Type: BLOOD SPECIMENOrdering Facility: [facility] Address: [address] [place] [address] Performed By: #### 5 7021-8, 4537-7 ####[facility] LABCLIA [id number] [place] [address] [place] Erythrocyte distribution width (RBC) [Ratio] 13.3 % Normal 11.5-15.0 [facility] Comment on above: Order Comment: Speci men Type: BLOOD SPECIMENOrdering Facility: [facility] Address: [address] [place] [address] Performed By: #### 5 7021-8, 4537-7 ####[facility] LABCLIA [id number] [place] [address] [place] Hematocrit (Bld) [Volume fraction] 38.1 % Low 39.0-51.0 [facility] Comment on above: Order Comment: Speci men Type: BLOOD SPECIMENOrdering Facility: [facility] Address: [address] [place] [address] Performed By: #### 5 7021-8, 4537-7 ####[facility] LABCLIA [id number] [place] [address] [place] Hemoglobin (Bld) [Mass/Vol] 12.5 g/dL Low 13.0-17.0 [facility] Comment on above: Order Comment: Speci men Type: BLOOD SPECIMENOrdering Facility: [facility] Address: [address] [place] [address] Performed By: #### 5 7021-8, 4537-7 ####[facility] LABCLIA [id number] [place] [address] [place] Lymphocytes (Bld) [#/Vol] 1.64 10*3/uL Normal 1.00-4.00 [facility] Comment on above: Order Comment: Speci men Type: BLOOD SPECIMENOrdering Facility: [facility] Address: [address] [place] [address] Performed By: #### 5 7021-8, 4537-7 ####[facility] LABCLIA [id number] [place] [address] [place] Lymphocytes/100 WBC (Bld) 12.2 % Normal [facility] Comment on above: Order Comment: Speci men Type: BLOOD SPECIMENOrdering Facility: [facility] Address: [address] [place] [address] Performed By: #### 5 7021-8, 453-7 ####[facility] LABCLIA [id number] [place] [address] [place] MCH (RBC) [Entitic mass] 32.6 pg Normal 26.0-34.0 [facility] Comment on above: Order Comment: Speci men Type: BLOOD SPECIMENOrdering Facility: [facility] Address: [address] [place] [address] Performed By: #### 5 7021-8, 4537-7 ####[facility] LABIA [id number] [place] [address] [place] MCHC (RBC) [Mass/Vol] 32.8 g/dL Normal 30.5-36.0 [facility] Comment on above: Order Comment: Speci men Type: BLOOD SPECIMENOrdering Facility: [facility] Address: [address] [place] [address] Performed By: #### 5 7021-8, 4537-7 ####[facility] LABCLIA [id number] [place] [address] [place] MCV (RBC) [Entitic vol] 99.2 fL Normal 80.0-100.0 [facility] Comment on above: Order Comment: Speci men Type: BLOOD SPECIMENOrdering Facility: [facility] Address: [address] [place] [address] Performed By: #### 5 7021-8, 4536-7 ####[facility] LABCLIA [id number] [place] [address] [place] Monocytes (Bld) [#/Vol] 1.40 10*3/uL High <0.87 [facility] Comment on above: Order Comment: Speci men Type: BLOOD SPECIMENOrdering Facility: [facility] Address: [address] [place] [address] Performed By: #### 5 7021-8, 7 ####[facility] LABCLIA [id number] [place] [address] [place] Monocytes/100 WBC (Bld) 10.4 % Normal [facility] Comment on above: Order Comment: Speci men Type: BLOOD SPECIMENOrdering Facility: [facility] Address: [address] [place] [address] Performed By: #### 5 7021-8, 7 ####[facility] LABCLIA [id number] [place] [address] [place] Neutrophils (Bld) [#/Vol] 10.39 10*3/uL High 1.45-7.50 [facility] Comment on above: Order Comment: Speci men Type: BLOOD SPECIMENOrdering Facility: [facility] Address: [address] [place] [address] Performed By: #### 5 7021-8, 7 ####[facility] LABCLIA [id number] [place] [address] [place] Neutrophils/100 WBC (Bld) 77.4 % Normal [facility] Comment on above: Order Comment: Speci men Type: BLOOD SPECIMENOrdering Facility: [facility] Address: [address] [place] [address] Performed By: #### 5 7021-8, 4536-09 ####[facility] LABCLIA [id number] [place] [address] [place] Nucleated RBC (Bld) [#/Vol] 10*3/uL Normal <0.01 [facility] Comment on above: Order Comment: Speci men Type: BLOOD SPECIMENOrdering Facility: [facility] Address: [address] [place] [address] Performed By: #### 5 7021-8, 4536-7 ####[facility] LABIA [id number] [place] [address] [place] Nucleated RBC/100 WBC (Bld) [Ratio] 0.0 /100 WBC Normal [facility] Comment on above: Order Comment: Speci men Type: BLOOD SPECIMENOrdering Facility: [facility] Address: [address] [place] [address] Performed By: #### 5 7021-8, 4536-7 ####[facility] LABIA [id number] [place] [address] [place] Platelet mean volume (Bld) [Entitic vol] 9.9 fL Normal 9.0-12.7 [facility] Comment on above: Order Comment: Speci men Type: BLOOD SPECIMENOrdering Facility: [facility] Address: [address] [place] [address] Performed By: #### 5 7021-8, 7 ####[facility] LABIA [id number] [place] [address] [place] Platelets (Bld) [#/Vol] 285 10*3/uL Normal 150-400 [facility] Comment on above: Order Comment: Speci men Type: BLOOD SPECIMENOrdering Facility: [facility] Address: [address] [place] [address] Performed By: #### 5 7021-8, 7-7 ####[facility] LABIA [id number] [place] [address] [place] Platelets Estimate (Bld) [#/Vol] Adequate Normal [facility] Comment on above: Order Comment: Speci men Type: BLOOD SPECIMENOrdering Facility: [facility] Address: [address] [place] [address] Performed By: #### 5 7021-8, 4537-7 ####[facility] LABCLIA [id number] [place] [address] [place] RBC (Bld) [#/Vol] 3.84 10*6/uL Low 4.20-6.00 [facility] Comment on above: Order Comment: Speci men Type: BLOOD SPECIMENOrdering Facility: [facility] Address: [address] [place] [address] Performed By: #### 5 7021-8, 4537-7 ####[facility] LABCLIA [id number] [place] [address] [place] RED CELL MORPH Reviewed: unremarkable Normal [facility] Comment on above: Order Comment: Speci men Type: BLOOD SPECIMENOrdering Facility: [facility] Address: [address] [place] [address] Performed By: #### 5 7021-8, 4537-7 ####[facility] LABCLIA [id number] [place] [address] [place] WBC (Bld) [#/Vol] 13.43 10*3/uL High 3.70-11.00 [facility] Comment on above: Order Comment: Speci men Type: BLOOD SPECIMENOrdering Facility: [facility] Address: [address] [place] [address] Performed By: #### 5 7021-8, 4537-7 ####[facility] LABCLIA [id number] [place] [address] [place] CONSULTon 09-07-2023 CONSULT Normal [facility] CRP SerPl-mCncon 09-07-2023 CRP [Mass/Vol] mg/L Normal <0.9 [facility] Comment on above: Order Comment: Speci men Type: BLOOD SPECIMENOrdering Facility: [facility] Address: [address] [place] [address] Performed By: #### 2 432-8, 1987-07, , ####[facility] LABCLIA [id number] [address] [address] [place] LUMBAR SPINE WO IVCONon 0 09-07-2023 CT LUMBAR SPINE WO IVCON Normal [facility] Comprehensive metabolic 2000 panelon 09-07-2023 Albumin [Mass/Vol] 4.0 g/dL Normal 3.9-4.9 [facility] Comment on above: Order Comment: Speci men Type: BLOOD SPECIMENOrdering Facility: [facility] Address: [address] [place] [address] Performed By: #### 2 4328, 1987-07, , ####[facility] LABCLIA [id number] [place] [id number] [place] ALP [Catalytic activity/Vol] 136 U/L High 38-113 [facility] Comment on above: Order Comment: Speci men Type: BLOOD SPECIMENOrdering Facility: [facility] Address: [address] [place] [address] Performed By: #### 2 4328, 1987-07, , ####[facility] LABCLIA [id number] [address] [address] [place] ALT [Catalytic activity/Vol] 20 U/L Normal 10-54 [facility] Comment on above: Order Comment: Speci men Type: BLOOD SPECIMENOrdering Facility: [facility] Address: [address] [place] [address] Performed By: #### 2 432-8, 1987-07, , ####[facility] LABCLIA [id number] [address] [address] [place] Anion gap [Moles/Vol] 10 mmol/L Normal 8-15 [facility] Comment on above: Order Comment: Speci men Type: BLOOD SPECIMENOrdering Facility: [facility] Address: [address] [place] [address] Performed By: #### 2 4323-8, 1987-07, , 29846-1 ####[facility] LABCLIA [id number] [address] [address] [place] AST [Catalytic activity/Vol] 19 U/L Normal 14-40 [facility] Comment on above: Order Comment: Speci men Type: BLOOD SPECIMENOrdering Facility: [facility] Address: [address] [place] [address] Performed By: #### 2 432-8, 1987-07, , 35995-9 ####[facility] LABCLIA [id number] [place] [address] [place] Bilirubin [Mass/Vol] 0.6 mg/dL Normal 0.2-1.3 [facility] Comment on above: Order Comment: Speci men Type: BLOOD SPECIMENOrdering Facility: [facility] Address: [address] [place] [address] Performed By: #### 2 4323-8, 1987-07, , 68286-1 ####[facility] LABCLIA [id number] [place] [id number] [place] Calcium [Mass/Vol] 9.7 mg/dL Normal 8.5-10.2 [facility] Comment on above: Order Comment: Speci men Type: BLOOD SPECIMENOrdering Facility: [facility] Address: [address] [place] [address] Performed By: #### 2 4323-8, 1987-07, , 10573-4 ####[facility] LABCLIA [id number] [address] [address] [place] Chloride [Moles/Vol] 105 mmol/L Normal 98-107 [facility] Comment on above: Order Comment: Speci men Type: BLOOD SPECIMENOrdering Facility: [facility] Address: [address] [place] [address] Performed By: #### 2 4323-8, 1987-07, , 24288-4 ####[facility] LABCLIA [id number] [place] [id number] [place] CO2 [Moles/Vol] 26 mmol/L Normal 22-30 [facility] Comment on above: Order Comment: Speci men Type: BLOOD SPECIMENOrdering Facility: [facility] Address: [address] [place] [address] Performed By: #### 2 4323-8, 1987-07, , 11289-1 ####[facility] LABIA [id number] [place] [address] [place] Creatinine [Mass/Vol] 0.93 mg/dL Normal 0.73-1.22 [facility] Comment on above: Order Comment: Speci men Type: BLOOD SPECIMENOrdering Facility: [facility] Address: [address] [place] [address] Performed By: #### 2 4323-8, 1987-07, , 10600-4 ####[facility] LABIA [id number] [place] [id number] [place] Creatinine and Glomerular filtration rate.predicted panel (S/P/Bld) 91 mL/min/1.73m??? Normal >=60 [facility] Comment on above: Order Comment: Speci men Type: BLOOD SPECIMENOrdering Facility: [facility] Address: [address] [place] [address] Result Comment: Yesica mated Glomerular Filtration Rate [...] Performed By: #### 2 4322-10, 1987-07, , 55941-5 ####[facility] LABCLIA [id number] [address] [address] [place] Glucose [Mass/Vol] 90 mg/dL Normal 74-99 [facility] Comment on above: Order Comment: Speci men Type: BLOOD SPECIMENOrdering Facility: [facility] Address: [address] [place] [address] Result Comment: The [place] [employer] (ADA) provides guidance for cutoff [...] Standards of Medical Care in Diabetes 2016, [place] [employer]. Diabetes Care. 2016.39(Suppl 1). Performed By: #### 2 4322-10, 1987-07, , 75433-4 ####[facility] LABCLIA [id number] [address] [address] [place] Potassium [Moles/Vol] 3.8 mmol/L Normal 3.7-5.1 [facility] Comment on above: Order Comment: Roberto Carlos lion Type: BLOOD SPECIMENOrdering Facility: [facility] Address: [address] [place] [address] Performed By: #### 2 4322-10, 1987-07, , 15310-1 ####[facility] LABCLIA [id number] [address] [address] [place] Protein [Mass/Vol] 6.0 g/dL Low 6.3-8.0 [facility] Comment on above: Order Comment: Speci men Type: BLOOD SPECIMENOrdering Facility: [facility] Address: [address] [place] [address] Performed By: #### 2 4323-8, 1987-07, , 72280-4 ####[facility] LABIA [id number] [place] [id number] [place] Sodium [Moles/Vol] 141 mmol/L Normal 136-144 [facility] Comment on above: Order Comment: Speci men Type: BLOOD SPECIMENOrdering Facility: [facility] Address: [address] [place] [address] Performed By: #### 2 4323-8, 1987-07, , 48630-9 ####[facility] LABIA [id number] [place] [id number] [place] Urea nitrogen [Mass/Vol] 29 mg/dL High 9-24 [facility] Comment on above: Order Comment: Speci men Type: BLOOD SPECIMENOrdering Facility: [facility] Address: [address] [place] [address] Performed By: #### 2 4323-8, 1987-07, , 60445-2 ####[facility] LABIA [id number] [address] [address] [place] ESR Westergren method (Bld) [Velocity]on 09-07-2023 ESR (Bld) [Velocity] 5 mm/h Normal 0-15 [facility] Comment on above: Order Comment: Speci men Type: BLOOD SPECIMENOrdering Facility: [facility] Address: [address] [place] [address] Performed By: #### 5 7021-8, 4537-7 ####[facility] LABCLIA [id number] [place] [address] [place] Magnesium [facility] 09-06 Magnesium [Mass/Vol] 2.1 mg/dL Normal 1.7-2.3 [facility] Comment on above: Order Comment: Speci men Type: BLOOD SPECIMENOrdering Facility: [facility] Address: [address] [place] [address] Performed By: #### 2 4323-8, 1987-07, , 43364-4 ####[facility] LABIA [id number] [place] [address] [place] NT-proBNP [facility] 09-06 Natriuretic peptide.B prohormone N-Terminal [Mass/Vol] 153 pg/mL High <125 [facility] Comment on above: Order Comment: Speci men Type: BLOOD SPECIMENOrdering Facility: [facility] Address: [address] [place] [address] Performed By: #### 2 4323-8, 1987-07, , 93821-6 ####[facility] LABIA [id number] [place] [address] [place] US DVT LOWER BILon US DVT LOWER JAYDON Normal [facility] Urinalysis complete panel (U )on 09-07-2023 Bacteria LM.HPF (Urine sed) [#/Area] Negative Normal Negative [facility] Comment on above: Order Comment: Speci men Type: URINE SPECIMENOrdering Facility: [facility] Address: [address] [place] [address] Performed By: #### 2 4356-8 ####[facility] LABIA [id number] [place] [address] [place] Bilirubin Ql (U) Negative Normal Negative [facility] Comment on above: Order Comment: Speci men Type: URINE SPECIMENOrdering Facility: [facility] Address: [address] [place] [address] Performed By: #### 2 4356-8 ####[facility] LABCLIA [id number] [place] [address] [place] Clarity (Unsp spec) Clear Normal Clear [facility] Comment on above: Order Comment: Speci men Type: URINE SPECIMENOrdering Facility: [facility] Address: [address] [place] [address] Performed By: #### 2 4356-8 ####[facility] LABCLIA [id number] [place] [address] [place] Color (U) Yellow Normal Yellow [facility] Comment on above: Order Comment: Speci men Type: URINE SPECIMENOrdering Facility: [facility] Address: [address] [place] [address] Performed By: #### 2 4356-8 ####[facility] LABCLIA [id number] [place] [address] [place] Epithelial cells LM.HPF (Urine sed) [#/Area] None Seen Normal [facility] Comment on above: Order Comment: Speci men Type: URINE SPECIMENOrdering Facility: [facility] Address: [address] [place] [address] Performed By: #### 2 4356-8 ####[facility] LABCLIA [id number] [place] [address] [place] Glucose Test strip (U) [Mass/Vol] Negative Normal Negative [facility] Comment on above: Order Comment: Speci men Type: URINE SPECIMENOrdering Facility: [facility] Address: [address] [place] [address] Performed By: #### 2 4356-8 ####[facility] LABCLIA [id number] [place] [address] [place] Hemoglobin Ql (U) Negative Normal Negative [facility] Comment on above: Order Comment: Speci men Type: URINE SPECIMENOrdering Facility: [facility] Address: [address] [place] [address] Performed By: #### 2 4356-8 ####[facility] LABCLIA [id number] [place] [address] [place] Hyaline casts (Urine sed) [#/Area] 0 /[LPF] Normal 0 /LPF [facility] Comment on above: Order Comment: Speci men Type: URINE SPECIMENOrdering Facility: [facility] Address: [address] [place] [address] Performed By: #### 2 4356-8 ####[facility] LABCLIA [id number] [place] [address] [place] Ketones Ql (U) Negative Normal Negative [facility] Comment on above: Order Comment: Speci men Type: URINE SPECIMENOrdering Facility: [facility] Address: [address] [place] [address] Performed By: #### 2 4356-8 ####[facility] LABCLIA [id number] [place] [address] [place] Leukocyte esterase Test strip Ql (U) Negative Normal Negative [facility] Comment on above: Order Comment: Speci men Type: URINE SPECIMENOrdering Facility: [facility] Address: [address] [place] [address] Performed By: #### 2 4356-8 ####[facility] LABCLIA [id number] [place] [address] [place] Nitrite Ql (U) Negative Normal Negative [facility] Comment on above: Order Comment: Speci men Type: URINE SPECIMENOrdering Facility: [facility] Address: [address] [place] [address] Performed By: #### 2 4356-8 ####[facility] LABCLIA [id number] [place] [address] [place] pH (U) 7.0 [pH] Normal <8.5 [facility] Comment on above: Order Comment: Speci men Type: URINE SPECIMENOrdering Facility: [facility] Address: [address] [place] [address] Performed By: #### 2 4356-8 ####[facility] LABIA [id number] [place] [address] [place] Protein (U) [Mass/Vol] Negative Normal Negative [facility] Comment on above: Order Comment: Speci men Type: URINE SPECIMENOrdering Facility: [facility] Address: [address] [place] [address] Performed By: #### 2 4356-8 ####[facility] LABIA [id number] [place] [address] [place] RBC LM.HPF (Urine sed) [#/Area] 0-2 /HPF Normal 0-2 /HPF [facility] Comment on above: Order Comment: Speci men Type: URINE SPECIMENOrdering Facility: [facility] Address: [address] [place] [address] Performed By: #### 2 4356-8 ####[facility] [id number] [place] [address] [place] Specific gravity (U) [Rel density] 1.007 Normal 1.005-1.030 [facility] Comment on above: Order Comment: Speci men Type: URINE SPECIMENOrdering Facility: [facility] Address: [address] [place] [address] Performed By: #### 2 4356-8 ####[facility] LABIA [id number] [place] [address] [place] Urobilinogen Ql (U) 0.2 EU/dL Normal 0.2-1.0 EU/dL [facility] Comment on above: Order Comment: Speci men Type: URINE SPECIMENOrdering Facility: [facility] Address: [address] [place] [address] Performed By: #### 2 4356-8 ####[facility] LABCLIA [id number] [place] [address] [place] WBC LM.HPF (Urine sed) [#/Area] 0-5 /HPF Normal 0-5 /HPF [facility] Comment on above: Order Comment: Speci men Type: URINE SPECIMENOrdering Facility: [facility] Address: [address] [place] [address] Performed By: #### 2 4356-8 ####[facility] LABIA [id number] [place] [address] [place] XR LUMBAR 3V AP/LAT/L5-S1on 09-07-2023 XR LUMBAR 3V AP/LAT/L5-S1 Normal [facility] CNPNon 09-04-2023 CNPN Normal [facility] CNPNon 08-29-2023 CNPN Normal [facility] CNCOon 08-25-2023 CNCO Letter Text Normal [facility] Basic metabolic 2000 panelon 08-22-2023 Anion gap [Moles/Vol] 9 mmol/L Normal 8-15 [facility] Comment on above: Order Comment: Speci men Type: BLOOD SPECIMENOrdering Facility: [facility] Address: [address] [place] [address] Performed By: #### 2 4321-2 ####[facility] LABCLIA [id number] [place] [address] [place] Calcium [Mass/Vol] 9.4 mg/dL Normal 8.5-10.2 [facility] Comment on above: Order Comment: Speci men Type: BLOOD SPECIMENOrdering Facility: [facility] Address: [address] [place], [place] [address] Performed By: #### 2 4321-2 ####[facility] LABCLIA [id number] [place] [address] [place] Chloride [Moles/Vol] 103 mmol/L Normal 98-107 [facility] Comment on above: Order Comment: Speci men Type: BLOOD SPECIMENOrdering Facility: [facility] Address: [address] [place] [address] Performed By: #### 2 4321-2 ####[facility] LABCLIA [id number] [place] [id number] [place] CO2 [Moles/Vol] 26 mmol/L Normal 22-30 [facility] Comment on above: Order Comment: Speci men Type: BLOOD SPECIMENOrdering Facility: [facility] Address: [address] [place] [address] Performed By: #### 2 4321-2 ####[facility] LABCLIA [id number] [address] STATES OF [facility] Creatinine [Mass/Vol] 0.77 mg/dL Normal 0.73-1.22 [facility] Comment on above: Order Comment: Speci men Type: BLOOD SPECIMENOrdering Facility: [facility] Address: [address] [place] [address] Performed By: #### 2 4321-2 ####[facility] LABCLIA [id number] [address] OF [facility] Creatinine and Glomerular filtration rate.predicted panel (S/P/Bld) 99 mL/min/1.73m??? Normal >=60 [facility] Comment on above: Order Comment: Speci men Type: BLOOD SPECIMENOrdering Facility: [facility] Address: [address] [place] [address] Result Comment: Yesica mated Glomerular Filtration Rate [...] actual GFR. Performed By: #### 2 4321-2 ####[facility] LABCLIA [id number] [place] [address] [place] Glucose [Mass/Vol] 112 mg/dL High 74-99 [facility] Comment on above: Order Comment: Speci men Type: BLOOD SPECIMENOrdering Facility: [facility] Address: [address] [place] [address] Result Comment: The [place] [employer] (ADA) provides guidance for cutoff [...] Standards of Medical Care in Diabetes 2016, [place] [employer]. Diabetes Care. 2016.39(Suppl 1). Performed By: #### 2 4321-2 ####[facility] LABCLIA [id number] [place] [address] [place] Potassium [Moles/Vol] 5.1 mmol/L Normal 3.7-5.1 [facility] Comment on above: Order Comment: Speci men Type: BLOOD SPECIMENOrdering Facility: [facility] Address: [address] [place] [address] Performed By: #### 2 4321-2 ####[facility] LABIA [id number] [place] [address] [place] Sodium [Moles/Vol] 138 mmol/L Normal 136-144 [facility] Comment on above: Order Comment: Speci men Type: BLOOD SPECIMENOrdering Facility: [facility] Address: [address] [place] [address] Performed By: #### 2 4321-2 ####[facility] LABIA [id number] [place] [address] [place] Urea nitrogen [Mass/Vol] 16 mg/dL Normal 9-24 [facility] Comment on above: Order Comment: Speci men Type: BLOOD SPECIMENOrdering Facility: [facility] Address: [address] [place] [address] Performed By: #### 2 4321-2 ####[facility] LABCLIA [id number] [place] [address] [place] CBC panel Auto (Bld)on 08-21 Erythrocyte distribution width (RBC) [Ratio] 13.2 % Normal 11.5-15.0 [facility] Comment on above: Order Comment: Speci men Type: BLOOD SPECIMENOrdering Facility: [facility] Address: [address] [place] [address] Performed By: #### 5 8410-2 ####[facility] LABCLIA [id number] [place] [address] [place] Hematocrit (Bld) [Volume fraction] 34.6 % Low 39.0-51.0 [facility] Comment on above: Order Comment: Speci men Type: BLOOD SPECIMENOrdering Facility: [facility] Address: [address] [place] [address] Performed By: #### 5 8410-2 ####[facility] LABCLIA [id number] [place] [address] [place] Hemoglobin (Bld) [Mass/Vol] 11.6 g/dL Low 13.0-17.0 [facility] Comment on above: Order Comment: Speci men Type: BLOOD SPECIMENOrdering Facility: [facility] Address: [address] [place] [address] Performed By: #### 5 8410-2 ####[facility] LABCLIA [id number] [place] [address] [place] MCH (RBC) [Entitic mass] 31.9 pg Normal 26.0-34.0 [facility] Comment on above: Order Comment: Speci men Type: BLOOD SPECIMENOrdering Facility: [facility] Address: [address] [place] [address] Performed By: #### 5 8410-2 ####[facility] LABCLIA [id number] [place] [address] [place] MCHC (RBC) [Mass/Vol] 33.5 g/dL Normal 30.5-36.0 [facility] Comment on above: Order Comment: Speci men Type: BLOOD SPECIMENOrdering Facility: [facility] Address: [address] [place] [address] Performed By: #### 5 8410-2 ####[facility] LABIA [id number] [place] [address] [place] MCV (RBC) [Entitic vol] 95.1 fL Normal 80.0-100.0 [facility] Comment on above: Order Comment: Speci men Type: BLOOD SPECIMENOrdering Facility: [facility] Address: [address] [place] [address] Performed By: #### 5 8410-2 ####[facility] LABIA [id number] [place] [address] [place] Nucleated RBC (Bld) [#/Vol] 10*3/uL Normal <0.01 [facility] Comment on above: Order Comment: Speci men Type: BLOOD SPECIMENOrdering Facility: [facility] Address: [address] [place] [address] Performed By: #### 5 8410-2 ####[facility] LABIA [id number] [place] [address] [place] Platelet mean volume (Bld) [Entitic vol] 9.7 fL Normal 9.0-12.7 [facility] Comment on above: Order Comment: Speci men Type: BLOOD SPECIMENOrdering Facility: [facility] Address: [address] [place] [address] Performed By: #### 5 8410-2 ####[facility] LABIA [id number] [address] [address] [place] Platelets (Bld) [#/Vol] 393 10*3/uL Normal 150-400 [facility] Comment on above: Order Comment: Speci men Type: BLOOD SPECIMENOrdering Facility: [facility] Address: [address] [place] [address] Performed By: #### 5 8410-2 ####[facility] LABIA [id number] [place] [address] [place] RBC (Bld) [#/Vol] 3.64 10*6/uL Low 4.20-6.00 [facility] Comment on above: Order Comment: Speci men Type: BLOOD SPECIMENOrdering Facility: [facility] Address: [address] [place] [address] Performed By: #### 5 8410-2 ####[facility] [id number] [place] [address] [place] WBC (Bld) [#/Vol] 17.35 10*3/uL High 3.70-11.00 [facility] Comment on above: Order Comment: Speci men Type: BLOOD SPECIMENOrdering Facility: [facility] Address: [address] [place] [address] Performed By: #### 5 8410-2 ####[facility] [id number] [place] [id number] [place] CNDSon 08-22-2023 CNDS Normal [facility] THERAPY NTon 08-22-2023 THERAPY NT Normal [facility] Basic metabolic 2000 panelon 08-21-2023 Anion gap [Moles/Vol] 10 mmol/L Normal 8-15 [facility] Comment on above: Order Comment: Speci men Type: BLOOD SPECIMENOrdering Facility: [facility] Address: [address] [place] [address] Performed By: #### 2 4321-2 ####[facility] LABCLIA [id number] [place] [address] [place] Calcium [Mass/Vol] 9.5 mg/dL Normal 8.5-10.2 [facility] Comment on above: Order Comment: Speci men Type: BLOOD SPECIMENOrdering Facility: [facility] Address: [address] [place] [address] Performed By: #### 2 4321-2 ####[facility] LABCLIA [id number] [place] [address] [place] Chloride [Moles/Vol] 106 mmol/L Normal 98-107 [facility] Comment on above: Order Comment: Speci men Type: BLOOD SPECIMENOrdering Facility: [facility] Address: [address] [place] [address] Performed By: #### 2 4321-2 ####[facility] LABCLIA [id number] [place] [address] [place] CO2 [Moles/Vol] 22 mmol/L Normal 22-30 [facility] Comment on above: Order Comment: Speci men Type: BLOOD SPECIMENOrdering Facility: [facility] Address: [address] [place] [address] Performed By: #### 2 4321-2 ####[facility] LABCLIA [id number] [place] [address] [place] Creatinine [Mass/Vol] 0.84 mg/dL Normal 0.73-1.22 [facility] Comment on above: Order Comment: Speci men Type: BLOOD SPECIMENOrdering Facility: [facility] Address: [address] [place] [address] Performed By: #### 2 4321-2 ####[facility] LABCLIA [id number] [place] [address] [place] Creatinine and Glomerular filtration rate.predicted panel (S/P/Bld) 96 mL/min/1.73m??? Normal >=60 [facility] Comment on above: Order Comment: Roberto Carlos lion Type: BLOOD SPECIMENOrdering Facility: [facility] Address: [address] [place] [address] Result Comment: Yesica mated Glomerular Filtration Rate [...] actual GFR. Performed By: #### 2 4321-2 ####[facility] LABIA [id number] [place] [address] [place] Glucose [Mass/Vol] 140 mg/dL High 74-99 [facility] Comment on above: Order Comment: Roberto Carlos lion Type: BLOOD SPECIMENOrdering Facility: [facility] Address: [address] [place] [address] Result Comment: The [place] [employer] (ADA) provides guidance for cutoff [...] Standards of Medical Care in Diabetes 2016, [place] [employer]. Diabetes Care. 2016.39(Suppl 1). Performed By: #### 2 4321-2 ####[facility] LABIA [id number] [place] [address] [place] Potassium [Moles/Vol] 4.4 mmol/L Normal 3.7-5.1 [facility] Comment on above: Order Comment: Speci men Type: BLOOD SPECIMENOrdering Facility: [facility] Address: [address] [place] [address] Performed By: #### 2 4321-2 ####[facility] LABCLIA [id number] [address] [address] [place] Sodium [Moles/Vol] 138 mmol/L Normal 136-144 [facility] Comment on above: Order Comment: Speci men Type: BLOOD SPECIMENOrdering Facility: [facility] Address: [address] [place] [address] Performed By: #### 2 4321-2 ####[facility] LABCLIA [id number] [place] [address] [place] Urea nitrogen [Mass/Vol] 14 mg/dL Normal 9-24 [facility] Comment on above: Order Comment: Speci men Type: BLOOD SPECIMENOrdering Facility: [facility] Address: [address] [place] [address] Performed By: #### 2 4321-2 ####[facility] LABIA [id number] [place] [id number] [place] CASE MANAGEMon 08-21-2023 CASE MANAGEM Normal [facility] CBC panel Auto (Bld)on 08-20 Erythrocyte distribution width (RBC) [Ratio] 13.1 % Normal 11.5-15.0 [facility] Comment on above: Order Comment: Speci men Type: BLOOD SPECIMENOrdering Facility: [facility] Address: [address] [place] [address] Performed By: #### 5 8410-2 ####[facility] LABCLIA [id number] [place] [address] [place] Hematocrit (Bld) [Volume fraction] 34.2 % Low 39.0-51.0 [facility] Comment on above: Order Comment: Speci men Type: BLOOD SPECIMENOrdering Facility: [facility] Address: [address] [place] [address] Performed By: #### 5 8410-2 ####[facility] LABIA [id number] [place] [address] [place] Hemoglobin (Bld) [Mass/Vol] 11.6 g/dL Low 13.0-17.0 [facility] Comment on above: Order Comment: Speci men Type: BLOOD SPECIMENOrdering Facility: [facility] Address: [address] [place] [address] Performed By: #### 5 8410-2 ####[facility] LABIA [id number] [place] [address] [place] MCH (RBC) [Entitic mass] 31.7 pg Normal 26.0-34.0 [facility] Comment on above: Order Comment: Speci men Type: BLOOD SPECIMENOrdering Facility: [facility] Address: [address] [place] [address] Performed By: #### 5 8410-2 ####[facility] LABIA [id number] [place] [address] [place] MCHC (RBC) [Mass/Vol] 33.9 g/dL Normal 30.5-36.0 [facility] Comment on above: Order Comment: Speci men Type: BLOOD SPECIMENOrdering Facility: [facility] Address: [address] [place] [address] Performed By: #### 5 8410-2 ####[facility] LABIA [id number] [place] [address] [place] MCV (RBC) [Entitic vol] 93.4 fL Normal 80.0-100.0 [facility] Comment on above: Order Comment: Speci men Type: BLOOD SPECIMENOrdering Facility: [facility] Address: [address] [place] [address] Performed By: #### 5 8410-2 ####[facility] LABIA [id number] [place] [address] [place] Nucleated RBC (Bld) [#/Vol] 10*3/uL Normal <0.01 [facility] Comment on above: Order Comment: Speci men Type: BLOOD SPECIMENOrdering Facility: [facility] Address: [address] [place] [address] Performed By: #### 5 8410-2 ####[facility] LABCLIA [id number] [place] [address] [place] Platelet mean volume (Bld) [Entitic vol] 9.3 fL Normal 9.0-12.7 [facility] Comment on above: Order Comment: Speci men Type: BLOOD SPECIMENOrdering Facility: [facility] Address: [address] [place] [address] Performed By: #### 5 8410-2 ####[facility] LABCLIA [id number] [place] [address] [place] Platelets (Bld) [#/Vol] 324 10*3/uL Normal 150-400 [facility] Comment on above: Order Comment: Speci men Type: BLOOD SPECIMENOrdering Facility: [facility] Address: [address] [place] [address] Performed By: #### 5 8410-2 ####[facility] LABCLIA [id number] [place] [address] [place] RBC (Bld) [#/Vol] 3.66 10*6/uL Low 4.20-6.00 [facility] Comment on above: Order Comment: Speci men Type: BLOOD SPECIMENOrdering Facility: [facility] Address: [address] [place] [address] Performed By: #### 5 8410-2 ####[facility] LABCLIA [id number] [place] [address] [place] WBC (Bld) [#/Vol] 13.46 10*3/uL High 3.70-11.00 [facility] Comment on above: Order Comment: Speci men Type: BLOOD SPECIMENOrdering Facility: [facility] Address: [address] [place], [place] [address] Performed By: #### 5 8410-2 ####[facility] LABCLIA [id number] [address] [address] [place] THERAPY NTon 08-21-2023 THERAPY NT Normal [facility] THERAPY NT Normal [facility] THERAPY NT Normal [facility] XR LUMBAR 2V AP/LATon 2023 XR LUMBAR 2V AP/LAT Normal [facility] Basic metabolic 2000 panelon 08-20-2023 Anion gap [Moles/Vol] 11 mmol/L Normal 8-15 [facility] Comment on above: Order Comment: Speci men Type: BLOOD SPECIMENOrdering Facility: [facility] Address: [address] [place] [address] Performed By: #### 2 4321-2 ####[facility] LABCLIA [id number] [place] [address] [place] Calcium [Mass/Vol] 9.3 mg/dL Normal 8.5-10.2 [facility] Comment on above: Order Comment: Speci men Type: BLOOD SPECIMENOrdering Facility: [facility] Address: [address] [place] [address] Performed By: #### 2 4321-2 ####[facility] LABCLIA [id number] [place] [address] [place] Chloride [Moles/Vol] 105 mmol/L Normal 98-107 [facility] Comment on above: Order Comment: Speci men Type: BLOOD SPECIMENOrdering Facility: [facility] Address: [address] [place] [address] Performed By: #### 2 4321-2 ####[facility] LABCLIA [id number] [place] [address] [place] CO2 [Moles/Vol] 24 mmol/L Normal 22-30 [facility] Comment on above: Order Comment: Speci men Type: BLOOD SPECIMENOrdering Facility: [facility] Address: [address] [place] [address] Performed By: #### 2 4321-2 ####[facility] LABCLIA [id number] [place] [address] [place] Creatinine [Mass/Vol] 0.86 mg/dL Normal 0.73-1.22 [facility] Comment on above: Order Comment: Speci men Type: BLOOD SPECIMENOrdering Facility: [facility] Address: [address] [place] [address] Performed By: #### 2 4321-2 ####[facility] LABCLIA [id number] [place] [address] [place] Creatinine and Glomerular filtration rate.predicted panel (S/P/Bld) 95 mL/min/1.73m??? Normal >=60 [facility] Comment on above: Order Comment: Speci men Type: BLOOD SPECIMENOrdering Facility: [facility] Address: [address] [place] [address] Result Comment: Yesica mated Glomerular Filtration Rate [...] actual GFR. Performed By: #### 2 4321-2 ####[facility] LABIA [id number] [place] [address] [place] Glucose [Mass/Vol] 111 mg/dL High 74-99 [facility] Comment on above: Order Comment: Speci men Type: BLOOD SPECIMENOrdering Facility: [facility] Address: [address] [place] [address] Result Comment: The [place] [employer] (ADA) provides guidance for cutoff [...] Standards of Medical Care in Diabetes 2016, [place] [employer]. Diabetes Care. 2016.39(Suppl 1). Performed By: #### 2 4321-2 ####[facility] LABCLIA [id number] [place] [address] [place] Potassium [Moles/Vol] 4.0 mmol/L Normal 3.7-5.1 [facility] Comment on above: Order Comment: Speci men Type: BLOOD SPECIMENOrdering Facility: [facility] Address: [address] [place] [address] Performed By: #### 2 4321-2 ####[facility] LABIA [id number] [place] [address] [place] Sodium [Moles/Vol] 140 mmol/L Normal 136-144 [facility] Comment on above: Order Comment: Speci men Type: BLOOD SPECIMENOrdering Facility: [facility] Address: [address] [place] [address] Performed By: #### 2 4321-2 ####[facility] LABCLIA [id number] [place] [address] [place] Urea nitrogen [Mass/Vol] 10 mg/dL Normal 9-24 [facility] Comment on above: Order Comment: Speci men Type: BLOOD SPECIMENOrdering Facility: [facility] Address: [address] [place] [address] Performed By: #### 2 4321-2 ####[facility] LABCLIA [id number] [place] [address] [place] CBC panel Auto (Bld)on 08-19 Erythrocyte distribution width (RBC) [Ratio] 13.2 % Normal 11.5-15.0 [facility] Comment on above: Order Comment: Speci men Type: BLOOD SPECIMENOrdering Facility: [facility] Address: [address] [place] [address] Performed By: #### 5 8410-2 ####[facility] LABCLIA [id number] [address] [place] Hematocrit (Bld) [Volume fraction] 39.0 % Normal 39.0-51.0 [facility] Comment on above: Order Comment: Speci men Type: BLOOD SPECIMENOrdering Facility: [facility] Address: [address] [place] [address] Performed By: #### 5 8410-2 ####[facility] LABCLIA [id number] [address] [place] Hemoglobin (Bld) [Mass/Vol] 12.9 g/dL Low 13.0-17.0 [facility] Comment on above: Order Comment: Speci men Type: BLOOD SPECIMENOrdering Facility: [facility] Address: [address] [place] [address] Performed By: #### 5 8410-2 ####[facility] LABIA [id number] [place] [address] [place] MCH (RBC) [Entitic mass] 32.4 pg Normal 26.0-34.0 [facility] Comment on above: Order Comment: Speci men Type: BLOOD SPECIMENOrdering Facility: [facility] Address: [address] [place] [address] Performed By: #### 5 8410-2 ####[facility] LABCLIA [id number] [place] [address] [place] MCHC (RBC) [Mass/Vol] 33.1 g/dL Normal 30.5-36.0 [facility] Comment on above: Order Comment: Speci men Type: BLOOD SPECIMENOrdering Facility: [facility] Address: [address] [place] [address] Performed By: #### 5 8410-2 ####[facility] [id number] [address] [address] [place] MCV (RBC) [Entitic vol] 98.0 fL Normal 80.0-100.0 [facility] Comment on above: Order Comment: Speci men Type: BLOOD SPECIMENOrdering Facility: [facility] Address: [address] [place] [address] Performed By: #### 5 8410-2 ####[facility] [id number] [place] [address] [place] Nucleated RBC (Bld) [#/Vol] 10*3/uL Normal <0.01 [facility] Comment on above: Order Comment: Speci men Type: BLOOD SPECIMENOrdering Facility: [facility] Address: [address] [place] [address] Performed By: #### 5 8410-2 ####[facility] [id number] [place] [address] [place] Platelet mean volume (Bld) [Entitic vol] 9.7 fL Normal 9.0-12.7 [facility] Comment on above: Order Comment: Speci men Type: BLOOD SPECIMENOrdering Facility: [facility] Address: [address] [place] [address] Performed By: #### 5 8410-2 ####[facility] LABIA [id number] [place] [address] [place] Platelets (Bld) [#/Vol] 389 10*3/uL Normal 150-400 [facility] Comment on above: Order Comment: Speci men Type: BLOOD SPECIMENOrdering Facility: [facility] Address: [address] [place] [address] Performed By: #### 5 8410-2 ####[facility] LABCLIA [id number] [address] [address] [place] RBC (Bld) [#/Vol] 3.98 10*6/uL Low 4.20-6.00 [facility] Comment on above: Order Comment: Speci men Type: BLOOD SPECIMENOrdering Facility: [facility] Address: [address] [place], [place] [address] Performed By: #### 5 8410-2 ####[facility] LABCLIA [id number] [place] [id number] [place] WBC (Bld) [#/Vol] 11.15 10*3/uL High 3.70-11.00 [facility] Comment on above: Order Comment: Speci men Type: BLOOD SPECIMENOrdering Facility: [facility] Address: [address] [place], [place] [address] Performed By: #### 5 8410-2 ####[facility] LABCLIA [id number] [place] [id number] [place] LUMBAR SPINE WO IVCONon 0 08-20-2023 CT LUMBAR SPINE WO IVCON Normal [facility] MRI LUMBAR SPINE WO IVCONon 08-20-2023 MRI LUMBAR SPINE WO IVCON Normal [facility] THERAPY NTon 08-20-2023 THERAPY NT Normal [facility] THERAPY NT Normal [facility] ANES POSTPROC EVALon 024 ANES POSTPROC EVAL Normal [facility] ANES PRE-OPon 08-19-2023 ANES PRE-OP Normal [facility] BRIEF OP NOTon 08-19-2023 BRIEF OP NOT Normal [facility] NURSING PROGon 08-19-2023 NURSING PROG Normal [facility] NURSING PROG Normal [facility] OPERATIVE NOon 08-19-2023 OPERATIVE NO Normal [facility] XR LUMBAR 2V AP/LATon 2023 XR LUMBAR 2V AP/LAT Normal [facility] XR LUMBAR 2V AP/LAT Normal [facility] XR LUMBAR 2V AP/LAT Normal [facility] CNPNon 08-11-2023 CNPN Normal [facility] Basic metabolic 2000 panelon 08-06-2023 Anion gap [Moles/Vol] 13 mmol/L 9 - 18 mmol/L [facility] Calcium [Mass/Vol] 9.2 mg/dL 8.5 - 10. 2 mg/dL [facility] Chloride [Moles/Vol] 100 mmol/L 97 - 10 5 mmol/L [facility] CO2 [Moles/Vol] 24 mmol/L 22 - 30 mmol/L [facility] Creatinine [Mass/Vol] 1.00 mg/dL 0.73 - 1.22 mg/dL [facility] GFR/1.73 sq M.predicted among non-blacks MDRD (S/P/Bld) [Vol rate/Area] 83 mL/min/{1.73_m2} - PINF [facility] Comment on above: Estimated Glomerular Filtration Rate [...] 100 mg/dL High 74 - 99 mg/dL [facility] Comment on above: The [place] [employer] (ADA) provides guidance for [...] Standards of Medical Care in Diabetes 2016, [place] [employer]. Diabetes Care. 2016.39(Suppl 1). Interpretation and review of laboratory results Abnormal [facility] Potassium [Moles/Vol] 4.1 mmol/L 3.7 - 5.1 mmol/L [facility] Sodium [Moles/Vol] 137 mmol/L 136 - 144 mmol/L [facility] Urea nitrogen [Mass/Vol] 23 mg/dL 9 - 24 mg/dL [facility] Anion gap [Moles/Vol] 13 mmol/L Normal 9-18 [facility] Comment on above: Order Comment: Speci men Type: BLOOD SPECIMEN [facility] Address: [address] [place] [address] Performed By: #### 2 4321-2, 2276-4, 91241-1 #### [facility] CLIA [id number] [place] [address] [place] Calcium [Mass/Vol] 9.2 mg/dL Normal 8.5-10.2 [facility] Comment on above: Order Comment: Speci men Type: BLOOD SPECIMEN [facility] Address: [address] [place] [address] Performed By: #### 2 4321-2, 2276-4, 00104-7 #### [facility] CLIA [id number] [place] [address] [place] Chloride [Moles/Vol] 100 mmol/L Normal 97-105 [facility] Comment on above: Order Comment: Speci men Type: BLOOD SPECIMEN [facility] Address: [address] [place] [address] Performed By: #### 2 4321-2, 2276-4, 71478-5 #### [facility] CLIA [id number] [place] [address] [place] CO2 [Moles/Vol] 24 mmol/L Normal 22-30 [facility] Comment on above: Order Comment: Speci men Type: BLOOD SPECIMEN [facility] Address: [address] [place] [address] Performed By: #### 2 4321-2, 2276-4, 39195-8 #### [facility] CLIA [id number] [address] [place] [address] [place] Creatinine [Mass/Vol] 1.00 mg/dL Normal 0.73-1.22 [facility] Comment on above: Order Comment: Roberto Carlos lion Type: BLOOD SPECIMEN [facility]ing [facility] Address: [address] [place] [address] Performed By: #### 2 4321-2, 2276-4, 66956-1 #### [facility] CLIA [id number] [address] [place] [address] [place] Creatinine and Glomerular filtration rate.predicted panel (S/P/Bld) 83 mL/min/1.73m??? Normal >=60 [facility] Comment on above: Order Comment: Roberto Carlos lion Type: BLOOD SPECIMEN [facility]ing [facility] Address: [address] [place] [address] Result Comment: Yesica mated Glomerular Filtration Rate [...] GFR. Performed By: #### 2 4321-2, 2276-4, 21423-4 #### [facility] CLIA [id number] [address] [place] [address] [place] Glucose [Mass/Vol] 100 mg/dL High 74-99 [facility] Comment on above: Order Comment: Roberto Carlos lion Type: BLOOD SPECIMEN [facility]ing [facility] Address: [address] [place] [address] Result Comment: The [place] [employer] (ADA) provides guidance for cutoff [...] Standards of Medical Care in Diabetes 2016, [place] [employer]. Diabetes Care. 2016.39(Suppl 1). Performed By: #### 2 4321-2, 6-4, 13225-0 #### [facility] CLIA [id number] [place] [address] [place] Potassium [Moles/Vol] 4.1 mmol/L Normal 3.7-5.1 [facility] Comment on above: Order Comment: Speci men Type: BLOOD SPECIMEN [facility]ing [facility] Address: [address] [place] [address] Performed By: #### 2 4321-2, 6-4, 11600-4 #### [facility] CLIA [id number] [place] [address] [place] Sodium [Moles/Vol] 137 mmol/L Normal 136-144 [facility] Comment on above: Order Comment: Speci men Type: BLOOD SPECIMEN Ordering Facility: [facility] Address: [address] [place], [place] [address] Performed By: #### 2 4321-2, 6-4, 26364-3 #### [facility] CLIA [id number] [address] [place] [address] [place] Urea nitrogen [Mass/Vol] 23 mg/dL Normal 9-24 [facility] Comment on above: Order Comment: Speci men Type: BLOOD SPECIMEN [facility]ing [facility] Address: [address] [place], [place] [address] Performed By: #### 2 4321-2, 6-4, 20314-7 #### [facility] CLIA [id number] [address] [place] [address] [place] CBC W Auto Differential pane l (Bld)on 08-06-2023 Basophils (Bld) [#/Vol] 0.08 10*3/uL Normal <0.11 [facility] Comment on above: Order Comment: Speci men Type: BLOOD SPECIMEN [facility]ing [facility] Address: [address] [place] [address] Performed By: #### 5 7021-8 #### [facility] CLIA [id number] [address] [place] [address] [place] Basophils/100 WBC (Bld) 0.9 % Normal [facility] Comment on above: Order Comment: Speci men Type: BLOOD SPECIMEN [facility]ing Facility: [facility] Address: [address] [place] [address] Performed By: #### 5 7021-8 #### [facility] CLIA [id number] [address] [place] [address] [place] Differential cell count method Nom (Bld) Auto Normal [facility] Comment on above: Order Comment: Speci men Type: BLOOD SPECIMEN [facility]ing [facility]: [facility] Address: [address] [place] [address] Performed By: #### 5 7021-8 #### [facility] IA [id number] [address] [place] [address] [place] Eosinophils (Bld) [#/Vol] 0.43 10*3/uL Normal <0.46 [facility] Comment on above: Order Comment: Speci men Type: BLOOD SPECIMEN Ordering [facility]: [facility] Address: [address] [place] [address] Performed By: #### 5 7021-8 #### [facility] IA [id number] [address] [place] [address] [place] Eosinophils/100 WBC (Bld) 4.6 % Normal [facility] Comment on above: Order Comment: Speci men Type: BLOOD SPECIMEN Ordering [facility]: [facility] Address: [address] [place] [address] Performed By: #### 5 7021-8 #### [facility] CLIA [id number] [place] [address] [place] Erythrocyte distribution width (RBC) [Ratio] 12.7 % Normal 11.5-15.0 [facility] Comment on above: Order Comment: Speci men Type: BLOOD SPECIMEN Ordering Facility: [facility] Address: [address] [place] [address] Performed By: #### 5 7021-8 #### [facility] IA [id number] [address] [place] [address] [place] Hematocrit (Bld) [Volume fraction] 46.3 % Normal 39.0-51.0 [facility] Comment on above: Order Comment: Speci men Type: BLOOD SPECIMEN Ordering Facility: [facility] Address: [address] [place] [address] Performed By: #### 5 7021-8 #### [facility] IA [id number] [address] [place] [address] [place] Hemoglobin (Bld) [Mass/Vol] 15.1 g/dL Normal 13.0-17.0 [facility] Comment on above: Order Comment: Speci men Type: BLOOD SPECIMEN Ordering Facility: [facility] Address: [address] [place] [address] Performed By: #### 5 7021-8 #### [facility] IA [id number] [address] [place] [address] [place] Immature granulocytes (Bld) [#/Vol] 0.21 10*3/uL High <0.10 [facility] Comment on above: Order Comment: Speci men Type: BLOOD SPECIMEN Ordering Facility: [facility] Address: [address] [place] [address] Performed By: #### 5 7021-8 #### [facility] IA [id number] [address] [place] [address] [place] Immature granulocytes/100 WBC (Bld) 2.3 % Normal [facility] Comment on above: Order Comment: Speci men Type: BLOOD SPECIMEN Ordering Facility: [facility] Address: [address] [place] [address] Performed By: #### 5 7021-8 #### [facility] IA [id number] [address] [place] [address] [place] Lymphocytes (Bld) [#/Vol] 1.59 10*3/uL Normal 1.00-4.00 [facility] Comment on above: Order Comment: Speci men Type: BLOOD SPECIMEN Ordering Facility: [facility] Address: [address] [place] [address] Performed By: #### 5 7021-8 #### [facility] CLIA [id number] [place] Lymphocytes/100 WBC (Bld) 17.2 % Normal [facility] Comment on above: Order Comment: Speci men Type: BLOOD SPECIMEN Ordering Facility: [facility] Address: [address] [place] [address] Performed By: #### 5 7021-8 #### [facility] CLIA [id number] [address] [place] [address] [place] MCH (RBC) [Entitic mass] 31.9 pg Normal 26.0-34.0 [facility] Comment on above: Order Comment: Speci men Type: BLOOD SPECIMEN Ordering Facility: [facility] Address: [address] [place] [address] Performed By: #### 5 7021-8 #### [facility] CLIA [id number] [address] [place] [address] [place] MCHC (RBC) [Mass/Vol] 32.6 g/dL Normal 30.5-36.0 [facility] Comment on above: Order Comment: Speci men Type: BLOOD SPECIMEN Ordering Facility: [facility] Address: [address] [place] [address] Performed By: #### 5 7021-8 #### [facility] CLIA [id number] [address] [place] [address] [place] MCV (RBC) [Entitic vol] 97.9 fL Normal 80.0-100.0 [facility] Comment on above: Order Comment: Speci men Type: BLOOD SPECIMEN Ordering Facility: [facility] Address: [address] [place] [address] Performed By: #### 5 7021-8 #### [facility] CLIA [id number] [place] [address] [place] Monocytes (Bld) [#/Vol] 1.13 10*3/uL High <0.87 [facility] Comment on above: Order Comment: Speci men Type: BLOOD SPECIMEN Ordering Facility: [facility] Address: [address] [place] [address] Performed By: #### 5 7021-8 #### [facility] CLIA [id number] [address] [place] [address] [place] Monocytes/100 WBC (Bld) 12.2 % Normal [facility] Comment on above: Order Comment: Speci men Type: BLOOD SPECIMEN Ordering Facility: [facility] Address: [address] [place] [address] Performed By: #### 5 7021-8 #### [facility] CLIA [id number] [address] [place] [address] [place] Neutrophils (Bld) [#/Vol] 5.82 10*3/uL Normal 1.45-7.50 [facility] Comment on above: Order Comment: Speci men Type: BLOOD SPECIMEN Ordering Facility: [facility] Address: [address] [place] [address] Performed By: #### 5 7021-8 #### [facility] CLIA [id number] [address] [place] [address] [place] Neutrophils/100 WBC (Bld) 62.8 % Normal [facility] Comment on above: Order Comment: Speci men Type: BLOOD SPECIMEN Ordering Facility: [facility] Address: [address] [place] [address] Performed By: #### 5 7021-8 #### [facility] CLIA [id number] [place] [address] [place] Nucleated RBC (Bld) [#/Vol] 10*3/uL Normal <0.01 [facility] Comment on above: Order Comment: Speci men Type: BLOOD SPECIMEN Ordering Facility: [facility] Address: [address] [place] [address] Performed By: #### 5 7021-8 #### [facility] IA [id number] [address] [place] [address] [place] Nucleated RBC/100 WBC (Bld) [Ratio] 0.0 /100 WBC Normal [facility] Comment on above: Order Comment: Speci men Type: BLOOD SPECIMEN Ordering Facility: [facility] Address: [address] [place] [address] Performed By: #### 5 7021-8 #### [facility] IA [id number] [address] [place] [address] [place] Platelet mean volume (Bld) [Entitic vol] 9.6 fL Normal 9.0-12.7 [facility] Comment on above: Order Comment: Speci men Type: BLOOD SPECIMEN Ordering Facility: [facility] Address: [address] [place] [address] Performed By: #### 5 7021-8 #### [facility] IA [id number] [address] [place] [address] [place] Platelets (Bld) [#/Vol] 270 10*3/uL Normal 150-400 [facility] Comment on above: Order Comment: Speci men Type: BLOOD SPECIMEN Ordering Facility: [facility] Address: [address] [place] [address] Performed By: #### 5 7021-8 #### [facility] IA [id number] [address] [place] [address] [place] RBC (Bld) [#/Vol] 4.73 10*6/uL Normal 4.20-6.00 [facility] Comment on above: Order Comment: Speci men Type: BLOOD SPECIMEN Ordering Facility: [facility] Address: [address] [place] [address] Performed By: #### 5 7021-8 #### [facility] IA [id number] [address] [place] [address] [place] WBC (Bld) [#/Vol] 9.26 10*3/uL Normal 3.70-11.00 [facility] Comment on above: Order Comment: Speci men Type: BLOOD SPECIMEN Ordering Facility: [facility] Address: [address] [place] [address] Performed By: #### 5 7021-8 #### [facility] CLIA [id number] [facility] [place] [address] [facility] CONFIRM BLOOD TYPEon 024 ABO O Normal [facility] Comment on above: Order Comment: Speci men Type: BLOOD SPECIMEN Ordering Facility: [facility] Address: [address] [place] [address] Performed By: #### C ONABO #### [facility] CLIA [id number] [address] [place] [address] [place] Rh Nom (Bld) Negative Normal [facility] Comment on above: Order Comment: Speci men Type: BLOOD SPECIMEN Ordering Facility: [facility] Address: [address] [place] [address] Performed By: #### C ONABO #### [facility] CLIA [id number] [address] [place] [address] [place] Performed By: #### T SCR30 #### [facility] CLIA [id number] [address] [place] [address] [place] ECG COMPLETEon 08-06-2023 ECG COMPLETE Ventricular Rate : 5 5 BPM Atrial Rate : 55 BPM P-R Interval : 132 ms QRS Duration : 96 ms Q-T Interval : 420 ms QTC Calculation(Bazett) : 401 ms Calculated P [place] : 57 degrees Calculated R [place] : 63 degrees Calculated T [place] : 73 degrees Sinus bradycardia Possible Left atrial enlargement Borderline ECG Confirmed by LEX ACUNA DO ([id number]) on 08/18/2023 10:08:16 AM NAME : BRADEN RODRIGUEZ PID : [id number] : 1955 Gender : Male Race : ORD : [id number] Procedure Date : Aug 06 2023 08:48:24 [...] KATHERINE KEITH Acquired by : dm, Normal [facility] Ferritin SerPl-mCncon 2023 Ferritin [Mass/Vol] 322.8 ng/mL Normal 30.3-565.7 [facility] Comment on above: Order Comment: Speci men Type: BLOOD SPECIMEN Ordering Facility: [facility] Address: [address] [place] [address] Performed By: #### 2 4321-2, 2276-4, 07956-1 #### [facility] CLIA [id number] [address] [place] HISTORY PHYSICALon HISTORY PHYSICAL HNO ID: [id number] Author: SANAM GILL PA-C Service: ? Author Type: Physician System Development Manager Type: H&P Filed: 08/06/2023 12:03 Note Text: [...] over the last year. Relieving factors include Bledsoe and steroids. Aggravating factors include repetitive movement. [...] vaccine, a (more content not included)... Normal [facility] Iron and Iron binding capaci [facility] 08-06-2023 Iron [Mass/Vol] 99 ug/dL Normal 41-186 [facility] ital Comment on above: Order Comment: Specmartha lion Type: BLOOD SPECIMEN Ordering Facility: [facility] Address: [address] [place] [address] Performed By: #### 2 4321-2, 6-4, 38539-5 #### [facility] CLIA [id number] [facility] [place] [address] [place] Iron binding capacity [Mass/Vol] 252 ug/dL Normal 232-386 [facility] Comment on above: Order Comment: Speci men Type: BLOOD SPECIMEN Ordering Facility: [facility] Address: [address] [place] [address] Performed By: #### 2 4321-2, 6-4, 80629-8 #### [facility] CLIA [id number] [facility] [place] [address] [place] Iron/TIBC [Molar ratio] 39.3 % Normal 15.0-57.0 [facility] Comment on above: Order Comment: Speci men Type: BLOOD SPECIMEN Ordering Facility: [facility] Address: [address] [place] [address] Performed By: #### 2 4321-2, 2276-4, 79885-4 #### [facility] CLIA [id number] [facility] [place] [address] [facility] [place] Laboratory - Blood bankon ABO group Nom (Bld) O [facility] No Panel Informationon 08-05 [facility] STAPHYLOCOCCUS AUREUS AND MR SA SCREEN, PCR, NASALon 08-06-2023 S. aureus and MRSA panel BARBARA+probe (Nose) Not detected Normal Not Detected [facility] Comment on above: Order Comment: Speci men Type: SWAB Ordering Facility: [facility] Address: [address] [place] [address] Performed By: #### S APCR #### [facility] CLIA [id number] [address] [place] [address] [place] TYPE AND SCREEN,30 DAYon Blood group antibody screen Ql Negative [facility] ABO O Normal [facility] Comment on above: Order Comment: Speci men Type: BLOOD SPECIMEN Ordering Facility: [facility] Address: [address] [place] [address] Performed By: #### T SCR30 #### [facility] CLIA [id number] [address] [place] [address] [place] HIstorical Ab Scr Status Negative Normal [facility] Comment on above: Order Comment: Speci men Type: BLOOD SPECIMEN Ordering Facility: [facility] Address: [address] [place] [address] Performed By: #### T SCR30 #### [facility] CLIA [id number] [address] [place] [address] [place] CNPNon 08-01-2023 CNPN Normal [facility] CT LUMBAR SPINE WO IVCONon 0 05-04-2023 CT LUMBAR SPINE WO IVCON * * *Final Report* * * DATE OF EXAM: May 04 2023 8:14AM [facility] 0508 - CT LUMBAR SPINE WO [...] caudal rib-bearing vertebra is counted as T12. Thread Spinner (topogram) images: No significant additional findings Alignment: [...] crest and there are 5 lumbar-type vertebrae. Control Room Supervisor: PSCB Transcribe Date/Time: May 04 2023 9:20A Dictated by : CLAIRE LAZAR MD This examination was interpreted and the report reviewed and electronically signed by: CLAIRE LAZAR MD on May 04 2023 9:32AM EST [id number] Normal [facility] CT Lumbar spine WO contrasto n 05-04-2023 [facility] XR Lumbar spine Views W flex ion and W extensionon 04-30-2023 [facility] XR Thoracic and lumbar spine Views for scoliosis W standingon 04-30-2023 [facility] Creatinine (Bld) [Mass/Vol]O rdered By: Shae Kahlil on 10-28-2022 Creatinine [Mass/Vol] 1.0 mg/dL 0.6-1.3 [facility] Comment on above: ER/ESD physician is [...] WILTON NICHOLE Date: 2022-04-12 08:12 Normal [facility] CREATININEon 04-11-2022 Creatinine [Mass/Vol] 0.80 mg/dL Normal 0.70-1.30 [facility] Comment on above: Performed By: #### P [facility], VITAD #### [facility] [address] [place] [address] Dr. Max Peck EGFR-AF CYMRO >60 Normal >=60 [facility] Comment on above: Performed By: #### P SASC, VITAD #### [facility] [address] [address] [address] Max Peck EGFR-NON AF CYMRO >60 Normal >=60 [facility] Comment on above: Performed By: #### P HUGO, VITAD #### [facility] [address] [address] [address] Max Peck XR ABD FLAT UP_PA [...] by: EDENILSON KNIGHT Date: 2022-03-16 10:42 Normal [facility] LIPID PROFILEon 03-06-2022 CHOL-HDL RATIO NORM SEE BELOW Normal [facility] Comment on above: Result Comment: 3.3 - 4.4 LOW RISK 4.4 - 7.1 AVERAGE RISK 7.1 - 11.0 MODERATE RISK >11.0 HIGH RISK Performed By: #### P HUGO, VITAD #### [facility] [address] [place] [address] Dr. Max Peck Cholesterol [Mass/Vol] 163 mg/dL Normal <=200 [facility] Comment on above: Performed By: #### P HUGO, VITAD #### [facility] [address] [address] [address] Max Peck Cholesterol in HDL [Mass/Vol] 50 mg/dL Normal 40-60 [facility] Comment on above: Performed By: #### P HUGO, VITAD #### [facility] [address] [place] [address] Dr. Max Peck Cholesterol in LDL [Mass/Vol] 100.0 mg/dL Normal [facility] Comment on above: Performed By: #### P HUGO, VITAD #### [facility] [address] [address] [address] Max Peck Cholesterol.total/Cho lesterol in HDL [Mass ratio] 3.3 {ratio} Normal [facility] Comment on above: Performed By: #### P SASC, VITAD #### [facility] [address] [place] [address] Dr. Max Peck HDL NORMAL > or = 60 mg/dl - LO W CARDIOVASCULAR RISK <40 mg/dl - HIGH CARDIOVASCULAR RISK Normal [facility] Comment on above: Performed By: #### P SASC, VITAD #### [facility] [address] [place] [address] Dr. Max Peck LDL CALC NORMAL SEE BELOW Normal [facility] Comment on above: Result Comment: <100 mg/dl OPTIMAL 100 - 129 mg/dl NEAR OR ABOVE OPTIMAL 130 - 159 mg/dl BORDERLINE HIGH 160 - 189 mg/dl HIGH >190 mg/dl VERY HIGH Performed By: #### P SASC, VITAD #### [facility] [address] [place] [address] Dr. Max Peck Triglyceride [Mass/Vol] 65 mg/dL Normal <=150 [facility] Comment on above: Performed By: #### P BILLYC, VITAD #### [facility] [address] [place] [address] Dr. Max Peck VLDL CALC 13.0 mg/dL Normal [facility] Comment on above: Performed By: #### P SASC, VITAD #### [facility] [address] [place] [address] Dr. Max Peck PROF 14(COMP METB)on 022 Albumin [Mass/Vol] 3.9 g/dL Normal 3.4-5.0 [facility] Comment on above: Performed By: #### P SASC, VITAD #### [facility] [address] [place] [address] Dr. Max Peck Albumin/Globulin [Mass ratio] 1.3 {ratio} Normal [facility] Comment on above: Performed By: #### P SASC, VITAD #### [facility] [address] [place] [address] Dr. Max Peck ALP [Catalytic activity/Vol] 79 U/L Normal 46-116 [facility] Comment on above: Performed By: #### P SASC, VITAD #### [facility] [address] [address] [address] Max Peck ALT [Catalytic activity/Vol] 24 U/L Normal 16-63 [facility] Comment on above: Performed By: #### P SASC, VITAD #### [facility] [address] [address] [address] Max Peck Anion gap [Moles/Vol] 12.3 mmol/L Normal [facility] Comment on above: Performed By: #### P SASC, VITAD #### [facility] [address] [place] [address] Dr. Max Peck AST [Catalytic activity/Vol] 25 U/L Normal 15-37 [facility] Comment on above: Performed By: #### P SASC, VITAD #### [facility] [address] [place] [address] Dr. Max Peck Bilirubin [Mass/Vol] 1.4 mg/dL Critically high 0.2-1.0 [facility] Comment on above: Performed By: #### P SASC, VITAD #### [facility] [address] [place] [address] Dr. Max Peck Calcium [Mass/Vol] 9.1 mg/dL Normal 8.5-10.1 [facility] Comment on above: Performed By: #### P SASC, VITAD #### [facility] [address] [place] [address] Dr. Max Peck Chloride [Moles/Vol] 100 mmol/L Normal 98-107 [facility] Comment on above: Performed By: #### P SASC, VITAD #### [facility] [address] [place] [address] Dr. Max Peck CO2 [Moles/Vol] 30.7 mmol/L Normal 21.0-32.0 [facility] Comment on above: Performed By: #### P SASC, VITAD #### [facility] [address] [address] [address] Max Peck Creatinine [Mass/Vol] 0.86 mg/dL Normal 0.70-1.30 [facility] Comment on above: Performed By: #### P SASC, VITAD #### [facility] [address] [address] [address] Max Peck EGFR-AF CYMRO 60 mL/min/1.73m2 Normal >=60 [facility] Comment on above: Performed By: #### P SASC, VITAD #### [facility] [address] [place] [address] Dr. Max Peck EGFR-NON AF CYMRO 60 mL/min/1.73m2 Normal >=60 [facility] Comment on above: Performed By: #### P SASC, VITAD #### [facility] [address] [place] [address] Dr. Max Peck Globulin (S) [Mass/Vol] 3.1 g/dL Normal [facility] Comment on above: Performed By: #### P SASC, VITAD #### [facility] [address] [place] [address] Dr. Max Peck Glucose [Mass/Vol] 102 mg/dL Normal 74-106 [facility] Comment on above: Performed By: #### P SASC, VITAD #### [facility] [address] [place] [address] Dr. Max Peck Potassium [Moles/Vol] 4.0 mmol/L Normal 3.5-5.1 [facility] Comment on above: Performed By: #### P SASC, VITAD #### [facility] [address] [place] [address] Dr. Max Peck Protein [Mass/Vol] 7.0 g/dL Normal 6.4-8.2 [facility] Comment on above: Performed By: #### P SASC, VITAD #### [facility] [address] [place] [address] Dr. Max Peck Sodium [Moles/Vol] 139 mmol/L Normal 136-145 [facility] Comment on above: Performed By: #### P SASC, VITAD #### [facility] [address] [address] [address] Max Peck Urea nitrogen [Mass/Vol] 10.0 mg/dL Normal 7.0-18.0 [facility] Comment on above: Performed By: #### P SASC, VITAD #### [facility] [address] [address] [address] Max Peck Urea nitrogen/Creatinine [Mass ratio] 11.6 mg/mg Normal [facility] Comment on above: Performed By: #### P SASC, VITAD #### [facility] [address] [address] [address] Max Peck XR CSPINE MIN 4 [...] WILTON NICHOLE Date: 2022-01-19 07:14 Normal [facility] HEPATITIS PANEL, ACUTEon HBsAg Screen Negative Normal Negative [facility] Comment on above: Performed By: #### P SASC, VITAD #### [facility] [address] [address] [address] Max Peck HCV AB <0.1 Normal 0.0-0.9 [facility] Comment on above: Performed By: #### P SASC, VITAD #### [facility] [address] [address] [address] Max Peck Hep A Ab, IgM Negative Normal Negative [facility] Comment on above: Performed By: #### P SASC, VITAD #### [facility] [address] [address] [address] Max Peck Hep B Core Ab, IgM Negative Normal Negative [facility] Comment on above: Performed By: #### P SASC, VITAD #### [facility] [address] [address] [address] Max Peck Interpretation: Comment Normal [facility] Comment on above: Result Comment: Nega tive Not infected with HCV, unless recent infection is suspected or other evidence exists to indicate HCV infection. Performed By: #### P SASC, VITAD #### [facility] [address] [place] [address] Dr. Max Peck INSULINon 12-29-2021 Insulin 15.1 uIU/mL Normal 2.6-24.9 [facility] Comment on above: Performed By: #### P SASC, VITAD #### [facility] [address] [place] [address] Dr. Max Peck TESTOSTERONE, TOTALon 2021 Testosterone [Mass/Vol] 766 ng/dL Normal 264-916 [facility] Comment on above: Result Comment: Adul t male reference interval is based on a population of healthy nonobese males (BMI <30) between 19 and 39 years old. yeni Espinal.al. JCEM 2017,102;2288-7074. PMID: [id number]. Performed By: #### P SASC, VITAD #### [facility] [address] [place] [address] Dr. Max Peck CBC AUTO DIFFon 12-28-2021 BASO # 0.0 103/ul Normal 0.0-0.1 [facility] Comment on above: Performed By: #### P SASC, VITAD #### [facility] [address] [place] [address] Dr. Max Peck Basophils/100 WBC (Bld) 0.4 % Normal 0.2-2.0 [facility] Comment on above: Performed By: #### P SASC, VITAD #### [facility] [address] [place] [address] Dr. Max Peck EO # 0.0 103/ul Normal 0.0-0.7 [facility] Comment on above: Performed By: #### P SASC, VITAD #### [facility] [address] [place] [address] Dr. Max Peck Eosinophils/100 WBC (Bld) 0.3 % Critically low 0.9-7.0 [facility] Comment on above: Performed By: #### P SASC, VITAD #### [facility] [address] [place] [address] Dr. Max Peck Erythrocyte distribution width (RBC) [Ratio] 12.5 % Normal 11.0-15.0 [facility] Comment on above: Performed By: #### P SASC, VITAD #### [facility] [address] [place] [address] Dr. Max Peck Hematocrit (Bld) [Volume fraction] 41.5 % Critically low 42.0-54.0 [facility] Comment on above: Performed By: #### P SASC, VITAD #### [facility] [address] [place] [address] Dr. Max Peck Hemoglobin (Bld) [Mass/Vol] 14.0 g/dL Normal 14.0-18.0 [facility] Comment on above: Performed By: #### P SASC, VITAD #### [facility] [address] [place] [address] Dr. Max Peck IG # 0.09 10e3/ul Critically high 0.00-0.03 [facility] Comment on above: Performed By: #### P SASC, VITAD #### [facility] [address] [place] [address] Dr. Max Peck IG % 0.9 % Critically high 0.0-0.5 [facility] Comment on above: Performed By: #### P SASC, VITAD #### [facility] [address] [place] [address] Dr. Max Peck LYMPH # 2.6 103/ul Normal 1.2-3.8 [facility] Comment on above: Performed By: #### P SASC, VITAD #### [facility] [address] [place] [address] Dr. Max Peck Lymphocytes/100 WBC (Bld) 25.0 % Normal 20.5-60.0 [facility] Comment on above: Performed By: #### P SASC, VITAD #### [facility] [address] [place] [address] Dr. Max Peck MANUAL DIFF REQ NO Normal [facility] Comment on above: Performed By: #### P SASC, VITAD #### [facility] [address] [place] [address] Dr. Max Peck MCH (RBC) [Entitic mass] 32.6 pg Normal 25.9-34.0 [facility] Comment on above: Performed By: #### P SASC, VITAD #### [facility] [address] [place] [address] Dr. Max Peck MCHC (RBC) [Mass/Vol] 33.7 g/dL Normal 29.9-35.2 [facility] Comment on above: Performed By: #### P SASC, VITAD #### [facility] [address] [place] [address] Dr. Max Peck MCV (RBC) [Entitic vol] 96.7 fL Critically high 80.0-94.0 [facility] Comment on above: Performed By: #### P SASC, VITAD #### [facility] [address] [place] [address] Dr. Max Peck MONO # 1.2 103/ul Critically high 0.3-0.8 [facility] Comment on above: Performed By: #### P SASC, VITAD #### [facility] [address] [place] [address] Dr. Max Peck Monocytes/100 WBC (Bld) 11.1 % Normal 1.7-12.0 [facility] Comment on above: Performed By: #### P SASC, VITAD #### [facility] [address] [place] [address] Dr. Max Peck NEUT # 6.4 103/ul Normal 1.4-6.5 [facility] Comment on above: Performed By: #### P BILLYC, VITAD #### [facility] [address] [place] [address] Dr. Max Peck Neutrophils/100 WBC (Bld) 62.3 % Normal 43.0-75.0 [facility] Comment on above: Performed By: #### P SASC, VITAD #### [facility] [address] [place] [address] Dr. Max Peck Platelet mean volume (Bld) [Entitic vol] 9.6 fL Normal 9.5-13.5 [facility] Comment on above: Performed By: #### P SASC, VITAD #### [facility] [address] [place] [address] Dr. Max Peck PLT 323 103/ul Normal 150-450 [facility] Comment on above: Performed By: #### P BILLYC, VITAD #### [facility] [address] [place] [address] Dr. Max Peck RBC 4.29 106/ul Critically low 4.70-6.10 [facility] Comment on above: Performed By: #### P SASC, VITAD #### [facility] [address] [place] [address] Dr. Max Peck WBC 10.3 103/ul Normal 4.0-11.0 [facility] Comment on above: Performed By: #### P SASC, VITAD #### [facility] [address] [place] [address] Dr. Max Peck FREE THYROXINE INDEX T7on FTI 2.41 Normal 1.30-4.50 [facility] Comment on above: Performed By: #### T SH, URIC, T7, LIPID, CMP #### [facility] [address] [place] [address] Dr. Max Peck T3U 36.0 % Normal 33.0-40.0 [facility] Comment on above: Performed By: #### T SH, URIC, T7, LIPID, CMP #### [facility] [address] [address] [address] Max Peck T4 [Mass/Vol] 6.70 ug/dL Normal 4.50-12.10 [facility] Comment on above: Performed By: #### T SH, URIC, T7, LIPID, CMP #### [facility] [address] [address] [address] Max Peck GLYCOHEMOGLOBIN A1Con 2021 ADA RECOMMENDATION SEE BELOW Normal [facility] Comment on above: Result Comment: ADA RECOMMENDED LIMIT 4.0 - 6.0 ADA THERAPEUTIC TARGET < 7.0 ACTION SUGGESTED > 7.0 Performed By: #### P SASC, VITAD #### [facility] [address] [place] [address] Dr. Max Peck Glucose [Mass/Vol] 97 mg/dL Normal [facility] Comment on above: Performed By: #### P SASC, VITAD #### [facility] [address] [place] [address] Dr. Max Peck HbA1c (Bld) [Mass fraction] 5.0 % Normal 4.5-6.2 [facility] Comment on above: Performed By: #### P SASC, VITAD #### [facility] [address] [place] [address] Dr. Max Peck LIPID PROFILEon 12-28-2021 CHOL-HDL RATIO NORM SEE BELOW Normal [facility] Comment on above: Result Comment: 3.3 - 4.4 LOW RISK 4.4 - 7.1 AVERAGE RISK 7.1 - 11.0 MODERATE RISK >11.0 HIGH RISK Performed By: #### T SH, URIC, T7, LIPID, CMP #### [facility] [address] [place] [address] Dr. Max Peck Cholesterol [Mass/Vol] 221 mg/dL Critically high <=200 [facility] Comment on above: Performed By: #### T SH, URIC, T7, LIPID, CMP #### [facility] [address] [place] [address] Dr. Max Peck Cholesterol in HDL [Mass/Vol] 41 mg/dL Normal 40-60 [facility] Comment on above: Performed By: #### T SH, URIC, T7, LIPID, CMP #### [facility] [address] [address] [address] Max Peck Cholesterol in LDL [Mass/Vol] 157.2 mg/dL Normal [facility] Comment on above: Performed By: #### T SH, URIC, T7, LIPID, CMP #### [facility] [address] [address] [address] Max Peck Cholesterol.total/Cho lesterol in HDL [Mass ratio] 5.4 {ratio} Normal [facility] Comment on above: Performed By: #### T SH, URIC, T7, LIPID, CMP #### [facility] [address] [place] [address] Dr. Max Peck HDL NORMAL > or = 60 mg/dl - LO W CARDIOVASCULAR RISK <40 mg/dl - HIGH CARDIOVASCULAR RISK Normal [facility] Comment on above: Performed By: #### T SH, URIC, T7, LIPID, CMP #### [facility] [address] [place] [address] Dr. Max Peck LDL CALC NORMAL SEE BELOW Normal [facility] Comment on above: Result Comment: <100 mg/dl OPTIMAL 100 - 129 mg/dl NEAR OR ABOVE OPTIMAL 130 - 159 mg/dl BORDERLINE HIGH 160 - 189 mg/dl HIGH >190 mg/dl VERY HIGH Performed By: #### T SH, URIC, T7, LIPID, CMP #### [facility] [address] [address] [address] Max Peck Triglyceride [Mass/Vol] 114 mg/dL Normal <=150 [facility] Comment on above: Performed By: #### T SH, URIC, T7, LIPID, CMP #### [facility] [address] [place] [address] Dr. Max Peck VLDL CALC 22.8 mg/dL Normal [facility] Comment on above: Performed By: #### T SH, URIC, T7, LIPID, CMP #### [facility] [address] [place] [address] Dr. Max Peck PROF 14(COMP METB)on 022 Albumin [Mass/Vol] 3.9 g/dL Normal 3.4-5.0 [facility] Comment on above: Performed By: #### T SH, URIC, T7, LIPID, CMP #### [facility] [address] [address] [address] Max Peck Albumin/Globulin [Mass ratio] 1.3 {ratio} Normal [facility] Comment on above: Performed By: #### T SH, URIC, T7, LIPID, CMP #### [facility] [address] [address] [address] Max Peck ALP [Catalytic activity/Vol] 63 U/L Normal 46-116 [facility] Comment on above: Performed By: #### T SH, URIC, T7, LIPID, CMP #### [facility] [address] [place] [address] Dr. Max Peck ALT [Catalytic activity/Vol] 75 U/L Critically high 16-63 [facility] Comment on above: Performed By: #### T SH, URIC, T7, LIPID, CMP #### [facility] [address] [address] [address] Max Peck Anion gap [Moles/Vol] 8.8 mmol/L Normal [facility] Comment on above: Performed By: #### T SH, URIC, T7, LIPID, CMP #### [facility] [address] [address] [address] Max Peck AST [Catalytic activity/Vol] 41 U/L Critically high 15-37 [facility] Comment on above: Performed By: #### T SH, URIC, T7, LIPID, CMP #### [facility] [address] [address] [address] Max Peck Bilirubin [Mass/Vol] 0.8 mg/dL Normal 0.2-1.0 [facility] Comment on above: Performed By: #### T SH, URIC, T7, LIPID, CMP #### [facility] [address] [address] [address] Max Peck Calcium [Mass/Vol] 9.1 mg/dL Normal 8.5-10.1 [facility] Comment on above: Performed By: #### T SH, URIC, T7, LIPID, CMP #### [facility] [address] [place] [address] Dr. Max Peck Chloride [Moles/Vol] 102 mmol/L Normal 98-107 [facility] Comment on above: Performed By: #### T SH, URIC, T7, LIPID, CMP #### [facility] [address] [address] [address] Max Peck CO2 [Moles/Vol] 33.8 mmol/L Critically high 21.0-32.0 [facility] Comment on above: Performed By: #### T SH, URIC, T7, LIPID, CMP #### [facility] [address] [place] [address] Dr. Max Peck Creatinine [Mass/Vol] 0.80 mg/dL Normal 0.70-1.30 [facility] Comment on above: Performed By: #### T SH, URIC, T7, LIPID, CMP #### [facility] [address] [place] [address] Dr. Max Peck EGFR-AF CYMRO >60 Normal >=60 [facility] Comment on above: Performed By: #### T SH, URIC, T7, LIPID, CMP #### [facility] [address] [place] [address] Dr. Max Peck EGFR-NON AF CYMRO >60 Normal >=60 [facility] Comment on above: Performed By: #### T SH, URIC, T7, LIPID, CMP #### [facility] [address] [place] [address] Dr. Max Peck Globulin (S) [Mass/Vol] 2.9 g/dL Normal [facility] Comment on above: Performed By: #### T SH, URIC, T7, LIPID, CMP #### [facility] [address] [place] [address] Dr. Max Peck Glucose [Mass/Vol] 99 mg/dL Normal 74-106 [facility] Comment on above: Performed By: #### T SH, URIC, T7, LIPID, CMP #### [facility] [address] [place] [address] Dr. Max Peck Potassium [Moles/Vol] 3.6 mmol/L Normal 3.5-5.1 [facility] Comment on above: Performed By: #### T SH, URIC, T7, LIPID, CMP #### [facility] [address] [place] [address] Dr. Max Peck Protein [Mass/Vol] 6.8 g/dL Normal 6.4-8.2 [facility] Comment on above: Performed By: #### T SH, URIC, T7, LIPID, CMP #### [facility] [address] [place] [address] Dr. Max Peck Sodium [Moles/Vol] 141 mmol/L Normal 136-145 [facility] Comment on above: Performed By: #### T SH, URIC, T7, LIPID, CMP #### [facility] [address] [place] [address] Dr. Max Peck Urea nitrogen [Mass/Vol] 16.0 mg/dL Normal 7.0-18.0 [facility] Comment on above: Performed By: #### T SH, URIC, T7, LIPID, CMP #### [facility] [address] [place] [address] Dr. Max Peck Urea nitrogen/Creatinine [Mass ratio] 20.0 mg/mg Normal [facility] Comment on above: Performed By: #### T SH, URIC, T7, LIPID, CMP #### [facility] [address] [place] [address] Dr. Max Peck TSHon 12-28-2021 TSH 1.544 uIU/mL Normal 0.358-3.740 [facility] Comment on above: Performed By: #### T SH, URIC, T7, LIPID, CMP #### [facility] [address] [place] [address] Dr. Max Peck URIC ACID SERUMon 12-28-2021 Urate [Mass/Vol] 5.4 mg/dL Normal 3.5-7.2 [facility] Comment on above: Performed By: #### T SH, URIC, T7, LIPID, CMP #### [facility] [address] [address] [address] Max Peck VITAMIN D 25 OHon 12-28-2021 VIT D 25-OH 51.2 ng/mL Normal [facility] Comment on above: Performed By: #### P SASC, VITAD #### [facility] [id number] Max Peck VIT D RANGES SEE BELOW Normal [facility] Comment on above: Result Comment: <20 ng/mL Vit D deficient 20 - <30 ng/mL Vit D insufficient 30 - 100 ng/mL Vit D sufficient >100 ng/mL Potential Toxicity Performed By: #### P SASC, VITAD #### [facility] [address] [address] [address] Max Peck Cardiovascular Lab Reporton 09-01-2020 Cardiovascular Lab Report [facility] Patient Name: Braden Rodriguez [facility] MR #: [id number] Physician: Domenic Kohler MD Department of Service Date: 07/31/2020 Medicine Birthdate: 1955 Division of Room #: CC Cardiology Adult Cardiovascular Services [facility] [address] [address] Cardiovascular Laboratory Report The patient is a [...] Kohler MD Date Trans: 09/01/2020 10:51 A/sergio [id number] cc: Ester Cain M.D. [address], [place] [address] [facility] LUMBAR SPINE 2 OR 3 VIEWSon 05-19-2019 LUMBAR SPINE 2 OR 3 VIEWS STUDY: LUMBAR SPINE 2 OR 3 VIEWS; 05/19/2019 9:49 am INDICATION: PAIN. COMPARISON: None. ACCESSION NUMBER(S): [id number] ORDERING CLINICIAN: Edgar Fairchild FINDINGS: No fracture or subluxation of the lumbar spine. L3-L5 laminectomy defects. Moderate to severe multilevel degenerative disc height loss with endplate sclerosis and osteophyte formation. Multilevel facet arthropathy. Moderate dextroscoliosis centered at L2. IMPRESSION: Severe degenerative changes of the lumbar spine. L3-L5 laminectomy defects. Normal [facility] Vital Signs Date Time Vital Sign Value Performing Clinician Facility 10-06-2024 10:36-0400 Body height 182.88 cm Ester Cain MD Work Phone: [facility] 10-06-2024 10:36-0400 Body mass index (BMI) [Ratio] 28.5 kg/m2 Ester Cain MD Work Phone: [facility] 10-06-2024 10:36-0400 Body temperature 97.4 [degF] Ester Cain MD Work Phone: [facility] 10-06-2024 10:36-0400 Body weight 95.25 kg Ester Cain MD Work Phone: [facility] 10-06-2024 10:36-0400 Diastolic blood pressure 60 mm[Hg] Ester Cain MD Work Phone: [facility] 10-06-2024 10:36-0400 Heart rate 50 /min Ester Cain MD Work Phone: [facility] 10-06-2024 10:36-0400 SaO2% (BldA) [Mass fraction] 100 % Ester Cain MD Work Phone: [facility] 10-06-2024 10:36-0400 Systolic blood pressure 150 mm[Hg] Ester Cain MD Work Phone: [facility] 06-16-2024 09:53-0400 Body temperature 98.29 [degF] Nurse [facility] 06-16-2024 09:53-0400 Diastolic blood pressure 79 mm[Hg] Nurse [facility] 06-16-2024 09:53-0400 Heart rate 59 /min Nurse S70 [facility] 06-16-2024 09:53-0400 SaO2% (BldA) [Mass fraction] 97 % Nurse S70 [facility] 06-16-2024 09:53-0400 Systolic blood pressure 141 mm[Hg] [facility] 06-06-2024 20:51-0400 SaO2% (BldA) [Mass fraction] 96 % ESTER CAIN [facility] Comment on above: Order Comment: Specimen Type: ARTERIAL B LOOD SPECIMENOrdering Facility: [facility] Address: [address] [place] [address] Performed By: #### A LLBG ####[facility] LABCLIA [id number] [place] [address] [place] 05-12-2024 11:13-0500 Body height 182.9 cm Katherine Keith MD Work Phone: [facility] 05-12-2024 11:13-0500 Body mass index (BMI) [Ratio] 27.8 kg/m2 Katherine Keith MD Work Phone: [facility] 05-12-2024 11:13-0500 Body weight 92.99 kg Katherine Keith MD Work Phone: [facility] 05-12-2024 11:13-0500 Diastolic blood pressure 79 mm[Hg] Katherine Hernandez Work Phone: [facility] 05-12-2024 11:13-0500 Heart rate 73 /min Katherine Keith MD Work Phone: [facility] 05-12-2024 11:13-0500 Respiratory rate 19 /min Katherine Keith MD Work Phone: [facility] 05-12-2024 11:13-0500 Systolic blood pressure 141 mm[Hg] Katherine Keith MD Work Phone: [facility] 05-12-2024 08:41-0500 Body height 182.9 cm Rhona Boss MD Work Phone: [facility] 05-12-2024 08:41-0500 Body mass index (BMI) [Ratio] 28.79 kg/m2 Rhona Boss MD Work Phone: [facility] 05-12-2024 08:41-0500 Body temperature 97 [degF] Rhona Boss MD Work Phone: [facility] 05-12-2024 08:41-0500 Body weight 96.3 kg Rhona Boss MD Work Phone: [facility] 05-12-2024 08:41-0500 Diastolic blood pressure 73 mm[Hg] Rhona Boss MD Work Phone: [facility] 05-12-2024 08:41-0500 Heart rate 67 /min Rhona Boss MD Work Phone: [facility] 05-12-2024 08:41-0500 SaO2% (BldA) [Mass fraction] 100 % Rhona Boss MD Work Phone: [facility] 05-12-2024 08:41-0500 Systolic blood pressure 157 mm[Hg] Rhona Hernandez Work Phone: [facility] 01-13-2024 13:17-0500 Body height 182.9 cm Katherine Keith MD Work Phone: [facility] 01-13-2024 13:17-0500 Body mass index (BMI) [Ratio] 27.8 kg/m2 Katherine Keith MD Work Phone: [facility] 01-13-2024 13:17-0500 Body weight 92.99 kg Katherine Keith MD Work Phone: [facility] 01-13-2024 13:17-0500 Diastolic blood pressure 68 mm[Hg] Katherine Hernandez Work Phone: [facility] 01-13-2024 13:17-0500 Heart rate 84 /min Katherine Keith MD Work Phone: [facility] 01-13-2024 13:17-0500 Systolic blood pressure 136 mm[Hg] Katherine Keith MD Work Phone: [facility] 11-12-2023 14:16-0400 Body height 182.9 cm Katherine Keith MD Work Phone: [facility] 11-12-2023 14:16-0400 Body mass index (BMI) [Ratio] 27.84 kg/m2 Katherine Keith MD Work Phone: [facility] 11-12-2023 14:16-0400 Body weight 93.1 kg Katherine Keith MD Work Phone: [facility] 11-12-2023 14:16-0400 Diastolic blood pressure 77 mm[Hg] Katherine Hernandez Work Phone: [facility] 11-12-2023 14:16-0400 Heart rate 71 /min Katherine Keith MD Work Phone: [facility] 11-12-2023 14:16-0400 Respiratory rate 18 /min Katherine Keith MD Work Phone: [facility] 11-12-2023 14:16-0400 SaO2% (BldA) [Mass fraction] 100 % Katherine Keith MD Work Phone: [facility] Comment on above: room air 11-12-2023 14:16-0400 Systolic blood pressure 146 mm[Hg] Katherine Keith MD Work Phone: [facility] 11-11-2023 13:43-0400 Blood Pressure Location Camryn NILL [facility] 11-11-2023 13:43-0400 Diastolic blood pressure 96 mm[Hg] Camryn NILL [facility] 11-11-2023 13:43-0400 Heart rate 72 /min Camryn NILL [facility] 11-11-2023 13:43-0400 Respiratory rate 16 /min Camryn NILL [facility] 11-11-2023 13:43-0400 Systolic blood pressure 136 mm[Hg] Camryn NILL [facility] 08-06-2023 09:43-0400 Body height 182.9 cm Pacc 1 Other Phone: [facility] 08-06-2023 09:43-0400 Body mass index (BMI) [Ratio] 26.43 kg/m2 Pacc 1 Other Phone: [facility] 08-06-2023 09:43-0400 Body temperature 98.1 [degF] Pacc 1 Other Phone: [facility] 08-06-2023 09:43-0400 Body weight 88.4 kg Pacc 1 Other Phone: [facility] 08-06-2023 09:43-0400 Diastolic blood pressure 69 mm[Hg] Pacc 1 Other Phone: [facility] 08-06-2023 09:43-0400 Heart rate 56 /min Pacc 1 Other Phone: [facility] 08-06-2023 09:43-0400 Respiratory rate 18 /min Pacc 1 Other Phone: [facility] 08-06-2023 09:43-0400 SaO2% (BldA) [Mass fraction] 100 % Pacc 1 Other Phone: [address] [address]-29-2024 09:43-0400 Systolic blood pressure 154 mm[Hg] Pacc 1 Other Phone: [facility] 04-30-2023 11:31-0500 Body height 182.9 cm Katherine Keith MD Work Phone: [facility] 04-30-2023 11:31-0500 Body weight 91.5 kg Katherine Keith MD Work Phone: [facility] 04-30-2023 11:31-0500 Diastolic blood pressure 69 mm[Hg] Katherine Hernandez Work Phone: [facility] 04-30-2023 11:31-0500 Heart rate 78 /min Katherien Keith MD Work Phone: [facility] 04-30-2023 11:31-0500 SaO2% (BldA) [Mass fraction] 96 % Katherine Keith MD Work Phone: [facility] 04-30-2023 11:31-0500 Systolic blood pressure 137 mm[Hg] Katherine Keith MD Work Phone: [facility] 10-30-2022 10:15-0400 Blood Pressure Location Shae Lue [facility] 10-30-2022 10:15-0400 Diastolic blood pressure 92 mm[Hg] Shae Lue [facility] 10-30-2022 10:15-0400 Heart rate 73 /min Shae Lue [facility] 10-30-2022 10:15-0400 Systolic blood pressure 145 mm[Hg] Shae Lue [facility] 10-28-2022 06:50-0400 Body height 182.88 cm MD Ester Cain Work Phone: [facility] 10-28-2022 06:50-0400 Body weight 83.91 kg MD Ester Cain Work Phone: [facility] 09-04-2022 07:45-0400 Blood Pressure Location Shae Lue [facility] 09-04-2022 07:45-0400 Diastolic blood pressure 98 mm[Hg] Shae Lue [facility] 09-04-2022 07:45-0400 Heart rate 51 /min Shae Lue [facility] 09-04-2022 07:45-0400 Respiratory rate 16 /min Shae Lue [facility] 09-04-2022 07:45-0400 Systolic blood pressure 175 mm[Hg] Shae Lue [facility] 04-03-2022 15:00-0500 Blood Pressure Location Camryn MOOREL [facility] 04-03-2022 15:00-0500 Diastolic blood pressure 96 mm[Hg] Camryn MOOREL [facility] 04-03-2022 15:00-0500 Heart rate 80 /min Camryn MOOREL [facility] 04-03-2022 15:00-0500 Respiratory rate 16 /min Camryn NILL [facility] 04-03-2022 15:00-0500 Systolic blood pressure 144 mm[Hg] Camryn MOOREL [facility] Encounters Encounter Date Encounter Type Care Provider Facility Start: 10-06-2024 End: 10-06-2024 ambulatory MAHAMED GRAY Not Available Start: 10-06-2024 End: 10-06-2024 Bamboo flowsheet Mahamed Gray DPM Work Phone: [facility] Start: 10-06-2024 End: 10-06-2024 Bamboo flowsheet Mahamed Gray DPM Work Phone: [facility] Start: 10-06-2024 End: 10-06-2024 ambulatory Ester Cain MD Work Phone: [facility] Work Phone: Start: 10-06-2024 End: 10-06-2024 Patient encounter procedure Citlali Black APRN -[facility] Work Phone: Start: 09-27-2024 End: 09-27-2024 Patient encounter procedure CWS Mahamed Gray DPM [facility] Work Phone: Start: 09-27-2024 End: 09-27-2024 ambulatory Ester Cain MD Work Phone: [facility] Work Phone: Start: 09-17-2024 End: 09-17-2024 Bamboo flowsheet Mahamed Gray DPM Work Phone: [facility] Start: 09-17-2024 End: 09-17-2024 Bamboo flowsheet Mahamed Gray DPM Work Phone: [facility] Start: 09-17-2024 End: 09-17-2024 ambulatory MAHAMED GRAY Not Available Start: 07-19-2024 End: 07-19-2024 Admission to same day surgery center Alfonso Lody PA-C Work Phone: [facility] Comment on [...] Start: 07-15-2024 End: 07-15-2024 ambulatory KATHERINE KEITH Facility:[facility] Start: 06-29-2024 End: 06-29-2024 Telemedicine consultation with patient Alfonso Loyd PA-C Work Phone: [facility] Start: 06-29-2024 End: 06-29-2024 ambulatory Alfonso Bonus PA-C Work Phone: [facility] Comment on above: Spondylolysis, lumba r region (Primary Dx); S/P cervical spinal fusion X-ray scheduling Start: 06-28-2024 End: 06-28-2024 Refill Alfonso Bonus PA-C Work Phone: [facility] Comment on above: Refill Request Start: 06-22-2024 End: 06-22-2024 ambulatory Alfonso Bonus PA-C Work Phone: [facility] Comment on above: Add Prednisone? Start: 06-21-2024 End: 06-21-2024 Admission to same day surgery center Katherine Keith MD Work Phone: [facility] Comment on above: Post surgery symptom s Refill Request Start: 06-21-2024 End: 06-21-2024 ambulatory Katherine Keith MD Work Phone: [facility] Start: 06-16-2024 End: 06-16-2024 ambulatory ESTER CAIN Facility:[facility] Start: 06-16-2024 End: 06-16-2024 Patient encounter procedure Nurse [facility] Comment on above: Encounter for remova l of sara (Primary Dx) Start: 06-14-2024 End: 06-14-2024 MC Get Medical Advice Alfonso Haqus PA-C Work Phone: [facility] Comment on above: Med Refill Start: 06-11-2024 End: 06-11-2024 Telephone encounter Katherine Keith MD Work Phone: [facility] Comment on above: Transition Of Care Start: 06-10-2024 End: 06-10-2024 ambulatory Alfonso Bonus PA-C Work Phone: [facility] Comment on above: [place] removal Start: 06-09-2024 End: 06-09-2024 ambulatory Alfonso Bonus PA-C Work Phone: [facility] Comment on above: Bathing instructions Start: 06-08-2024 End: 06-09-2024 Orders Only Maco Tse MD Work Phone: Cardiology Comment on above: SVT (supraventricula r tachycardia) (HCC) (Primary Dx); Elevated troponin Discharge Start: 06-04-2024 End: 06-04-2024 ambulatory Alfonso Bonus PA-C Work Phone: [facility] Comment on above: Neck brace Start: 06-02-2024 End: 06-08-2024 Evaluation and management of inpatient KATHERINE PELLE Facility:[facility] Start: 06-01-2024 End: 06-01-2024 Admission to same day surgery center Alfonso Bonus PA-C Work Phone: [facility] Comment on above: Phone number for charlette debbie time Start: 06-01-2024 End: 06-01-2024 ambulatory Alfonso Bonus PA-C Work Phone: [facility] Start: 05-17-2024 End: 05-17-2024 ambulatory Olesya Veras RNsupervisor drapery hanging [facility] Start: 05-14-20[facility] Start: 05-14-2024 End: 05-14-2024 Subsequent hospital visit by physician Ct [facility] Work Phone: [facility] Comment on above: Spinal stenosis of c ervical region [M48.02] Start: 05-12-2024 End: 05-12-2024 [facility] Start: 05-12-2024 End: 05-12-2024 Patient encounter procedure Katherine Keith MD Work Phone: [facility] Comment on above: Cervical spondylosis with myelopathy (Primary Dx); Spinal stenosis of cervical region Start: 05-12-2024 End: 05-12-2024 Admission to establishment Rhona Boss MD Work Phone: [facility] Start: 05-12-2024 End: 05-12-2024 Preprocedural examination done Rhona Boss MD Work Phone: [facility] Work Phone: Start: 05-12-2024 End: 05-12-2024 ambulatory Rhona Boss MD Work Phone: [facility] Comment on above: Pre-op evaluation (P rimary Dx); Spinal stenosis of lumbar region, unspecified whether neurogenic claudication present; Primary hypertension Start: 05-12-2024 Encounter for other preprocedural examination RHONA BOSS [facility] Start: 05-10-2024 End: 05-10-2024 ambulatory ESTER CAIN Facility:[facility] Start: 05-06-2024 End: 05-06-2024 ambulatory Katherine Keith MD Work Phone: [facility] Start: 05-06-2024 End: 05-06-2024 Patient encounter status Katherine Keith MD Work Phone: [facility] Start: 05-05-2024 End: 05-05-2024 Telemedicine consultation with patient Katherine Keith MD Work Phone: [facility] Start: 05-05-2024 End: 05-05-2024 Admission to same day surgery center Katherine Keith MD Work Phone: [facility] Comment on above: Neck surgery Start: 05-05-2024 End: 05-05-2024 ambulatory Katherine Keith MD Work Phone: [facility] Comment on above: Cervical spondylosis with myelopathy (Primary Dx) Start: 04-06-2024 End: 04-06-2024 ambulatory Alfonso Karina SCHWARTZ Work Phone: [facility] Comment on above: Request for Medical records Start: 02-21-2024 End: 02-21-2024 ambulatory ESTER CAIN Facility:[facility] Start: 02-21-2024 End: 02-21-2024 Subsequent hospital visit by physician Mri 7 Radio Main Q (I-Stat/1.5t/3t) Work Phone: MRI Q Comment on above: Spinal stenosis of c ervical region [M48.02] Start: 02-03-2024 End: 02-03-2024 Orders Only Alfonso Karina SCHWARTZ Work Phone: [facility] Comment on above: Spinal stenosis of c ervical region (Primary Dx) Start: 01-13-2024 End: 01-13-2024 Patient encounter procedure Katherine Keith MD Work Phone: [facility] Comment on above: S/P lumbar fusion (P rimary Dx); Right leg weakness Start: 01-13-2024 End: 01-13-2024 ambulatory ESTER CAIN Facility:[facility] Start: 01-13-2024 End: 01-13-2024 Patient encounter procedure Emg 1 Neur Main (Max Weight: 1000) Work Phone: Neurology Start: 01-13-2024 End: 01-13-2024 ambulatory ESTER CAIN Neurology Comment on above: EMG Start: 01-13-2024 End: 01-13-2024 ambulatory KATHERINE KEITH Facility:[facility] Start: 01-13-2024 End: 01-13-2024 Subsequent hospital visit by physician Mri 4 Radio Main Q (I-Stat/1.5t/3t) Work Phone: MRI Q Comment on above: Adverse effect of tr eatment, sequela [T88.9XXS] Acute low back pain, unspecified back pain laterality, unspecified whether sciatica present [M54.50] Start: 12-16-2023 End: 12-16-2023 ambulatory Camryn AGUSTIN Facility: [facility] Start: 12-16-2023 End: 12-16-2023 Patient encounter procedure Camryn AGUSTIN [facility] [place] Start: 12-05-2023 End: 12-05-2023 Telephone encounter Katherine Keith MD Work Phone: [facility] Comment on above: 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 - O ther Start: 11-26-2023 End: 11-26-2023 ambulatory MD Ester Cain Work Phone: [facility] Work Phone: Start: 11-26-2023 End: 11-26-2023 Departed Referred MD Ester Cain Work Phone: [facility] Start: 11-26-2023 End: 11-26-2023 ambulatory Camryn Rodriguez [facility] Facility::[id number] Start: 11-21-2023 End: 11-24-2023 ambulatory Alfonso CANELAC Work Phone: [facility] Comment on above: Tests Start: 11-12-2023 End: 11-12-2023 Patient encounter procedure Katherine Keith MD Work Phone: [facility] Comment on above: Adverse effect of tr eatment, sequela (Primary Dx); Acute low back pain, unspecified back pain laterality, unspecified whether sciatica present Start: 11-12-2023 End: 11-13-2023 Follow-up encounter Katherine Keith MD Work Phone: [facility] Comment on above: Follow up med reques t Start: 11-12-2023 End: 11-13-2023 ambulatory Katherine Keith MD Work Phone: [facility] Start: 11-12-2023 End: 11-12-2023 Subsequent hospital visit by physician Vaishnavi Ochoa J1-4 Work Phone: Radiology Comment on above: History of laminecto my [Z98.890] Start: 11-11-2023 End: 11-11-2023 Follow-up encounter Katherine Keith MD Work Phone: [facility] Comment on above: Surgery followup Start: 11-11-2023 End: 11-11-2023 ambulatory Katherine Keith MD Work Phone: [facility] Start: 11-11-2023 End: 11-11-2023 Patient encounter procedure Camryn AGUSTIN [facility] [place] Start: 11-05-2023 End: 11-05-2023 Telephone encounter Alfonso Bonus PA-C Work Phone: [facility] Comment on above: Refill Request Insurance Authorizat ion Start: 10-29-2023 End: 10-30-2023 Refill Alfonso Bonus PA-C Work Phone: [facility] Comment on above: Refill Request Start: 10-23-2023 ambulatory Alfonso Bonus PA-C Work Phone: [facility] Comment on above: Office number Start: 10-22-2023 ambulatory Alfonso Bonus PA-C Work Phone: [facility] Comment on above: Medication Start: 10-21-2023 End: 10-21-2023 ambulatory Alfonso Bonus PA-C Work Phone: [facility] Comment on above: Right leg weakness ( Primary Dx); S/P lumbar fusion Fax numbers Start: 10-21-2023 End: 10-21-2023 Telemedicine consultation with patient Alfonso Bonus PA-C Work Phone: [facility] Start: 10-16-2023 Telephone encounter Katherine wright MD Work Phone: Neurology Comment on above: medication Start: 10-15-2023 Refill Alfonso Bonus PA-C Work Phone: [facility] Comment on above: Refill Request Start: 10-09-2023 MC Get Medical Advice Katherine Keith MD Work Phone: [facility] Comment on above: Script refills Start: 10-02-2023 End: 10-04-2023 Evaluation and management of inpatient KATHERINE KEITH Facility:[facility] Start: 09-30-2023 Telephone encounter Aaron (Rsr Rocio Mcleod Comment on above: Research Start: 09-30-2023 End: 09-30-2023 Nursing evaluation of patient and report Melody Castaneda RN [facility] Comment on above: S/P lumbar spinal fu grace (Primary Dx) Start: 09-30-2023 End: 09-30-2023 ambulatory ESTER CAIN Facility:[facility] Start: 09-24-2023 Telephone encounter Judi MCKEON [facility] Comment on above: CARE CONTINUUM ADVIS OR ASSESSMENT Start: 09-21-2023 Refill Alfonso Loyd PA-C Work Phone: [facility] Comment on above: Refill Request Start: 09-18-2023 End: 09-18-2023 Refill Stephane KHALIL-C Work Phone: [facility] Comment on above: Refill Request Start: 09-17-2023 ambulatory Katherine Keith MD Work Phone: [facility] Start: 09-17-2023 Patient encounter status Margarette Keith MD Work Phone: [facility] Start: 09-16-2023 ambulatory Katherine Keith MD Work Phone: [facility] Comment on above: Legs swelling Start: 09-16-2023 Telephone encounter Katherine wright MD Work Phone: Neurology Comment on above: Patient Update Start: 09-15-2023 MC Get Medical Advice Katherine Keith MD Work Phone: [facility] Comment on above: Med refill Start: 09-11-2023 ambulatory Katherine Keith MD Work Phone: [facility] Comment on above: Meds at home discuss ion Start: 09-09-2023 ambulatory Alfonso Loyd PA-C Work Phone: [facility] Comment on above: Phyo Ruyt Braden Rodriguez Start: 09-09-2023 Follow-up encounter Katherine wright MD Work Phone: [facility] Comment on above: Surgery followup Start: 09-07-2023 End: 09-10-2023 Evaluation and management of inpatient CHRISTIANNE ZIEGLER Facility:[facility] Start: 09-05-2023 Refill Alfonso Haqus PA-C Work Phone: Medical Records Comment on above: Refill Request Start: 09-04-2023 Telephone encounter Katherine wright MD Work Phone: Neurology Comment on above: Patient Update Start: 09-02-2023 Refill Alfonso Bonus PA-C Work Phone: [facility] Comment on above: Refill Request Med refill Start: 09-01-2023 Admission to [facility] Katherine Keith MD Work Phone: [facility] Comment on above: 08/19/23 surgery Start: 09-01-2023 ambulatory Katherine Keith MD Work Phone: [facility] Start: 08-29-2023 Telephone encounter Katherine wright MD Work Phone: Neurology Comment on above: Medication Problem Start: 08-29-2023 End: 08-29-2023 ambulatory Alfonso Loyd PA-C Work Phone: [facility] Comment on above: Acute post-operative pain Start: 08-29-2023 End: 08-29-2023 Telemedicine consultation with patient Alfonso Loyd PA-C Work Phone: [facility] Start: 08-26-2023 Get Medical Advice Katherine Keith MD Work Phone: [facility] Comment on above: Oxicodone medication refill Start: 08-22-2023 End: 08-22-2023 Evaluation and management of inpatient ESTER CAIN Facility:[facility] Start: 08-19-2023 End: 08-22-2023 Evaluation and management of inpatient KATHERINE KEITH Facility:[facility] Start: 08-12-2023 End: 08-12-2023 ambulatory KATHERINEJON KEITH Facility:[facility] Start: 08-11-2023 Telephone encounter Judi MCKEON [facility] Comment on above: Follow Up Start: 08-10-2023 ambulatory Olesya Veras RN [place] [address] Comment on above: Blood Management Start: 08-06-2023 End: 08-06-2023 ambulatory ALFONSO LOYD [facility] Start: 08-06-2023 Encounter for other preprocedural examination [facility] Start: 08-06-2023 End: 08-06-2023 Admission to establishment [address]acc [address] Other Phone: Pre Anesthesia Start: 08-06-2023 End: 08-06-2023 Patient encounter procedure Pacc Av 1 Other Phone: Pre Anesthesia Comment on above: Pre-op exam (Primary Dx); Primary hypertension; SVT (supraventricular tachycardia) (HCC); History of penicillin allergy Start: 08-06-2023 End: 08-06-2023 Preprocedural examination done Pacc Av 1 Other Phone: [facility] Work Phone: Start: 08-06-2023 End: 08-06-2023 ambulatory KATHERINE KEITH Facility:[facility] Start: 08-06-2023 Encounter for other preprocedural examination [facility] Start: 08-01-2023 Admission to [facility] Katherine Keith MD Work Phone: [facility] Comment on above: Sooner Surgery Date Start: 08-01-2023 ambulatory Katherine Keith MD Work Phone: [facility] Start: 08-01-2023 Telephone encounter Katherine wright MD Work Phone: [facility] Comment on above: Patient Update Start: 07-30-2023 End: 07-30-2023 ambulatory ESTER M ANT Facility:[facility] Start: 07-14-2023 Telephone encounter Katherine wright MD Work Phone: [facility] Comment on above: Forms Start: 07-11-2023 ambulatory Katherine Keith MD Work Phone: [facility] Start: 07-11-2023 Patient encounter status Margarette Keith MD Work Phone: [facility] Start: 06-22-2023 Admission to same da y surgery center Katherine Keith MD Work Phone: [facility] Comment on above: Surgery date Start: 06-22-2023 ambulatory Katherine Keith MD Work Phone: [facility] Start: 06-11-2023 ambulatory Katherine Keith MD Work Phone: [facility] Start: 06-11-2023 Documentation procedure Mark Keith MD Work Phone: [facility] Comment on above: LTD Documents Start: 06-11-2023 Telephone encounter Katherine wright MD Work Phone: [facility] Comment on above: Forms Start: 05-29-2023 Telephone encounter Katherine wright MD Work Phone: [facility] Comment on above: Schedule Surgery Start: 05-28-2023 Admission to same da y surgery center Katherine Keith MD Work Phone: [facility] Comment on above: Surgery date Start: 05-28-2023 ambulatory Katherine Keith MD Work Phone: [facility] Start: 05-23-2023 Admission to same da y surgery center Katherine Keith MD Work Phone: [facility] Comment on above: Surgery date Start: 05-23-2023 ambulatory Katherine Keith MD Work Phone: [facility] Start: 05-19-2023 Admission to same da y surgery center Katherine Keith MD Work Phone: [facility] Comment on above: Surgery schedule Start: 05-19-2023 ambulatory Katherine Keith MD Work Phone: [facility] Start: 05-04-2023 ambulatory KATHERINE KEITH Facility: [facility] Start: 05-04-2023 End: 05-04-2023 Subsequent hospital visit by physician [facility] (I-Stat) Work Phone: [facility] Radiology CT Scan Comment on above: Chronic low back simba n, unspecified back pain laterality, unspecified whether sciatica present [M54.50, G89.29] Start: 04-30-2023 End: 04-30-2023 Subsequent hospital visit by physician Xr Main A21 Radiology Comment on above: History of lumbar la minectomy for spinal cord decompression [Z98.890] Start: 04-30-2023 End: 04-30-2023 Patient encounter procedure Katherine Keith MD Work Phone: [facility] Comment on above: History of lumbar la [...] encounter procedure Shae Guillory [facility] Start: 10-30-2022 End: 10-30-2022 Patient encounter procedure Shae Guillory [facility] Start: 10-28-2022 End: 10-28-2022 ambulatory MD Ester Cain Work Phone: [facility] Work Phone: Start: 10-28-2022 End: 10-28-2022 Patient encounter procedure MD Ester Cain Work Phone: [facility] Work Phone: Start: 09-04-2022 End: 09-04-2022 Patient encounter procedure Shae Guillory [facility] Start: 05-21-2022 End: 05-21-2022 Patient encounter procedure Camryn MOOREL General Surgery N[facility]/Said [facility] Start: 05-07-2022 End: 05-07-2022 Patient encounter procedure Camryn MOOREL General Surgery Nill/Said [place] Start: 04-22-[address] Ester Cani Facility:[id number] Start: 04-14-2022 Encounter for preprocedural laboratory examination DR CAMRYN AGUSTIN . [facility] Start: 04-11-2022 End: 04-12-2022 Encounter for preprocedural laboratory examination DR WILTON NICHOLE Facility:[facility] Start: 04-11-2022 End: 04-12-[address] WILTON NICHOLE Facility:[facility] Start: 04-03-2022 End: 04-03-2022 Patient encounter procedure Camryn MOOREL General Surgery N[facility]aid [facility] Start: 03-16-2022 End: 03-16-2022 ambulatory [facility] Facility:[facility] Start: 03-06-2022 End: 03-07-[address] ESTER CAIN . Facility:[facility] Start: 01-18-2022 End: 01-19-[address] ESTER CAIN . Facility:[facility] Start: 01-02-2022 Encounter for genera l adult medical examination without abnormal findings DR ESTER CAIN . [facility] Start: 01-01-2022 End: 01-02-[address] ESTER CAIN . Facility:[facility] Start: 12-28-2021 End: 12-29-[address] ESTER CAIN . Facility:[facility] Start: 12-28-2021 End: 12-29-2021 Encounter for general adult medical examination without abnormal findings DR ESTER CAIN . Facility: Start: 07-31-2020 End: 08-01-2020 ambulatory ESTER CAIN Facility:[facility] Procedures Date Procedure Procedure Detail Performing Clinician Start: 09-27-2024 Pulse volume recorder pneumoplethysmography Ester Cain MD Work Phone: Start: 05-12-2024 Antibody screen ESTER CAIN Comment on above: Order Comment: Specimen Type: BLOOD SPEC IMENOrdering Facility: [facility] Address: [address] [place] [address] Performed By: #### T SCR30 ####CC MAIN BLOOD BANKCLIA [id number] [address] Start: 02-21-2024 Mri spinal canal cervical [...] Comment: Specimen Type: BLOOD SPEC IMENOrdering Facility: [facility] Address: [address] [place] [address] Performed By: #### T SCR ####CC MAIN BLOOD BANKCLIA [id number] [address] [place] Start: 10-02-2023 Exploration spinal fusion Camryn AGUSTIN Start: 10-02-2023 Celaya facetectomy&foramtomy 1 sgm ea crv thrc/lmbr Camryn AGUSTIN Start: 08-06-2023 Antibody screen KATHERINE KEITH Comment on above: Order Comment: Specimen Type: BLOOD SPEC IMEN Ordering Facility: [facility] Address: [address] [place] [address] [place] [address] Performed By: #### T SCR30 #### [facility] CLIA [id number] [address] [place], [place] [id number] [place] [address] [facility] Start: 08-06-2023 Ecg routine ecg w/least [...] above: Performed By: #### PSASC, VITAD #### [facility] [address] [place] [address] Dr. 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 Extraction of [...] 11-25-2033 Screening for malignant neoplasm of colon [facility] Start: 06-09-2027 Diabetes Screening Diabetes Screening [facility] Start: 06-05-2027 Diabetes Screening Diabetes Screening [facility] Start: 05-13-2027 Diabetes Screening Diabetes Screening [facility] Start: 12-28-2026 Prostate specific antigen measurement Prostate Cancer Screening Discussion [facility] Start: 10-03-2026 Diabetes Screening Diabetes Screening [facility] Start: 09-09-2026 Diabetes Screening Diabetes Screening [facility] Start: 09-06-2026 Diabetes Screening Diabetes Screening [facility] Start: 08-21-2026 Diabetes Screening Diabetes Screening [facility] Start: 08-05-2026 Diabetes Screening Diabetes Screening [facility] Start: 11-08-2024 Influenza vaccination [facility] Start: 10-06-2024 End: 10-06-2024 Patient encounter procedure 10/06/2024 4:15 PM EDT Office Visit [facility] [address] [place] [address] Mahamed Gray, DPM [address] [place] [address] [facility]rived [facility] Comment on above: Arrived Start: 09-27-2024 Pulse volume recorder pneumoplethysmography [facility] Start: 09-17-2024 End: 09-17-2024 Patient encounter procedure 09/17/2024 10:30 AM EDT Office Visit [facility] [address] [place] [address] Mahamed Gray, DPM [address] [place] [address] Arrived [facility] Comment on above: Arrived Start: 07-15-2024 End: 07-15-2024 Admission to same day surgery center 07/15/2024 9:00 AM EDT [facility] [address] [place] [address] Alfonso Loyd PA-C [address] [place] [address] POST-OP 6-8WKS Spine [facility] Comment on above: POST-OP 6-8WKS Start: 07-09-2024 End: 07-09-2024 Patient encounter procedure Radiology Comment on above: POST-OP Elevated troponin af ter spine surgery Start: 06-29-2024 End: 06-29-2024 ambulatory 06/29/2024 9:30 AM EDT [facility] [address] [place] [id number] Alfonso Loyd PA-C [address] [place] [address] POST-2WKS [facility] Comment on above: POST-2WKS Start: 06-16-2024 End: 06-16-2024 Patient encounter procedure 06/16/2024 10:00 AM EDT Office Visit [facility] [address] [place] [address] Staple Removal [facility] Comment on above: Staple Removal Start: 06-16-2024 End: 06-16-2024 ambulatory 06/16/2024 9:00 AM EDT [facility] [address] [place] [address] Alfonso Loyd PA-C [address] [place] [address] POST-2WKS [facility] Comment on above: POST-2WKS Start: 06-02-2024 End: 06-02-2024 Admission to same day surgery center [facility] Comment on above: Schedule surgery CERVICAL LAMINOPLAST Y WITH DECOMPRESSION 2 OR MORE SEGMENTS Start: 06-02-2024 End: 06-02-2024 Admission to same day surgery center 06/02/2024 8:30 AM EDT - 06/02/2024 11:27 AM EDT Surgery Admitting [address] [place] [address] Katherine Keith MD [address] [place] [address] CERVICAL LAMINOPLASTY WITH DECOMPRESSION 2 OR MORE [...] Pre-op testing Expected: 05/12/2024 (Approximate), Expires: 06/02/2024 [facility] Comment on above: Expected: 05/12/2024 (Approximate), Expi res: 06/02/2024 Start: 05-12-2024 End: 05-12-2024 Patient encounter procedure 05/12/2024 11:30 AM EST Office Visit [facility] [address] [place] [address] Katherine Keith MD [address] [place] [address] PRE-OP CLEARANCE [facility] Comment on above: PRE-OP CLEARANCE Start: 05-12-2024 End: 05-12-2024 Patient encounter procedure Admitting Comment on above: PRE-OP CLEARANCE Start: 05-12-2024 End: 05-12-2024 Anesthesia consultation 05/12/2024 9:20 AM EST PAT Pre Anesthesia [address] [place] [address] 9, Pacc Main [address] [place] [address] PRE-OP CLEARANCE Pre Anesthesia Comment on above: PRE-OP CLEARANCE Start: 05-10-2024 End: 05-10-2024 Patient encounter procedure 05/10/2024 10:00 AM EST Office Visit Financial Clearance Phone Screening [id number] REGISTRATION Financial Clearance Phone Screening Comment on above: REGISTRATION Start: 05-06-2024 End: 06-02-2024 CBC W Auto Differential panel - Blood COMPLETE BLOOD COUNT AND DIFFERENTIAL Lab Routine Iron deficiency anemia, unspecified iron deficiency anemia type Expected: 05/06/2024 (Approximate), Expires: 06/02/2024 [facility] Comment on above: Expected: 05/06/2024 (Approximate), Expi res: 06/02/2024 Start: 05-06-2024 End: 06-02-2024 Ferritin [Mass/volume] in Serum or Plasma FERRITIN Lab Routine Iron deficiency anemia, unspecified iron deficiency anemia type Expected: 05/06/2024 (Approximate), Expires: 06/02/2024 [facility] Comment on above: Expected: 05/06/2024 (Approximate), Expi res: 06/02/2024 Start: 05-06-2024 End: 06-02-2024 Iron and Iron binding capacity panel - Serum or Plasma IRON AND TIBC Lab Routine Iron deficiency anemia, unspecified iron deficiency anemia type Expected: 05/06/2024 (Approximate), Expires: 06/02/2024 [facility] Work Phone: Comment on above: Expected: 05/06/2024 (Approximate), Expi res: 06/02/2024 Start: 03-10-2024 Advance Directive Discussion Advance Directive Discussion [facility] Start: 01-13-2024 End: 01-13-2024 Patient encounter procedure 01/13/2024 1:40 PM EST Office Visit [facility] [address] [place] [id number] Katherine Keith MD [address] [place] [address] f/u with provider [facility] Comment on above: f/u with provider Start: 01-13-2024 End: 01-13-2024 ambulatory 01/13/2024 9:30 AM EST Procedure Neurology [address] [place] [address] Adverse effect of treatment, sequela [T88.9XXS] Neurology Comment on above: Adverse effect of treatment, sequela [T8 8.9XXS] Start: 01-13-2024 End: 01-13-2024 Patient encounter procedure 01/13/2024 8:30 AM EST Appointment MRI Q [address] [address] MRI LUMBAR SPINE WO IVCON MRI Q Comment on above: MRI LUMBAR SPINE WO IVCON Start: 01-13-2024 End: 01-13-2024 Patient encounter procedure MRI Q Comment on above: MRI THORACIC SPINE WO IVCON Acute low back pain, unspecified back pain laterality, unspecified whether sciatica present [M54.50] Start: 11-12-2023 End: 11-12-2023 Patient encounter procedure 11/12/2023 2:20 PM EDT Office Visit [facility] [address] [place] [id number] Katherine Keith MD [address] [place], [place] [phone] post op in person [facility] Comment on above: post op in person Start: 11-12-2023 End: 11-12-2023 Patient encounter procedure 11/12/2023 1:10 PM EDT Appointment Radiology [address] [place] [phone] post op lumbar Radiology Comment on above: post op lumbar Start: 11-09-2023 Covid-19 Vaccine () Covid-19 Vaccine () [facility] Start: 11-09-2023 Covid-19 Vaccine () Covid-19 Vaccine () [facility] Start: 11-09-2023 Influenza vaccination [facility] Start: 10-21-2023 End: 10-21-2023 ambulatory 10/21/2023 8:50 AM EDT [facility] [address] [place], [place] [id number] Alfonso Loyd PA-C [address] [place] [address] MYC Postop [facility] Comment on above: MYC Postop Start: 10-14-2023 End: 10-14-2023 Patient encounter procedure Radiology Comment on above: post op lumbar post op in person Start: 10-08-2023 End: 10-08-2023 Patient encounter procedure 10/08/2023 12:40 PM EDT Office [facility] [address] [place] [address] Katherine Keith MD [address] [place] [address] post op in person [facility] Comment on above: post op in person Start: 10-08-2023 End: 10-08-2023 Patient encounter procedure 10/08/2023 11:30 AM EDT Appointment Radiology [address] [place] [address] post op lumbar Radiology Comment on above: [...] 09/30/2023 10:00 AM EDT Nurse Visit [facility] [address] [place] [address] Melody Castaneda, PATRICIA Phone Education [facility] Comment on above: Phone Education Start: 09-18-2023 End: 09-18-2023 Patient encounter procedure 09/18/2023 2:00 PM EDT Office Visit [facility] Phone Screening [place] [address] Hillary [facility] Phone Screening Comment on above: Hillary Start: 09-17-2023 End: 12-17-2023 STAPHYLOCOCCUS AUREUS & MRSA SCREEN, PCR, NASAL STAPHYLOCOCCUS AUREUS & MRSA SCREEN, PCR, NASAL Lab Routine S/P lumbar spinal fusion Pre-op testing Expected: 09/17/2023, Expires: 12/17/2023 [facility] Work Phone: Comment on above: Expected: 09/17/2023, Expires: Start: 09-16-2023 End: 09-16-2023 ambulatory 09/16/2023 10:10 AM EDT [facility] [address] [place], [place] [id number] Alfonso Loyd PA-C [address] [place] [id number] 2 week post op( virtual visit) [facility] Comment on above: 2 week post op( virtual visit) Start: 09-02-2023 End: 09-02-2023 Admission to same day surgery center 09/02/2023 7:30 AM EDT - 09/02/2023 2:00 PM EDT Surgery Admitting [address] [place] [address] Katherine Keith MD [address] [place] [address] LAT LUMBAR SPINE FUSION Admitting Comment on [...] 7:30 AM EDT Hospital Encounter Admitting [address] [place] [address] Katherine Keith MD [address] [facility] [address] History of laminectomy [Z98.890] Admitting Comment on above: History of laminectomy [Z98.890] Start: 08-29-2023 End: 08-29-2023 ambulatory 08/29/2023 8:30 AM EDT [facility] [address] [place] [address] Alfonso Loyd PA-C [address] [place] [address] 2 week post op( virtual visit) [facility] Comment on above: 2 week post op( virtual visit) Start: 08-28-2023 End: 08-28-2023 ambulatory 08/28/2023 10:00 AM EDT [facility] [address] [place] [address] Provider, Nurse Adolfo Keating [address] [place] [address] Nurse ROBERTO [facility] Comment on above: Nurse SEA Start: 08-19-2023 End: 08-19-2023 Admission to same day surgery center 08/19/2023 7:30 AM EDT - 08/19/2023 2:00 PM EDT Surgery Admitting [address] [place] [address] Katherine Keith MD [address] [place] [address] LAT LUMBAR SPINE FUSION Admitting Comment on [...] 7:30 AM EDT Hospital Encounter Admitting [address] [place] [address] Katherine Keith MD [address] [place] [address] History of laminectomy [Z98.890] Admitting Comment on above: History of laminectomy [Z98.890] Start: 08-12-2023 End: 08-12-2023 ambulatory 08/12/2023 2:00 PM EDT [facility] [address] [place] [address] Provider, Nurse Adolfo Keating [address] [place] [address] Nurse KEATING [facility] Comment on above: Nurse KEATING Start: 08-11-2023 End: 11-10-2023 CBC W Auto Differential panel - Blood COMPLETE BLOOD COUNT AND DIFFERENTIAL Lab Routine History of laminectomy Degenerative scoliosis in adult patient Pre-op testing Iron deficiency anemia, unspecified iron deficiency anemia type Expected: 08/11/2023 (Approximate), Expires: 11/10/2023 [facility] Comment on above: Expected: 08/11/2023 (Approximate), Expi res: 11/10/2023 Start: 08-11-2023 End: 11-10-2023 Ferritin [Mass/volume] in Serum or Plasma FERRITIN Lab Routine History of laminectomy Degenerative scoliosis in adult patient Pre-op testing Iron deficiency anemia, unspecified iron deficiency anemia type Expected: 08/11/2023 (Approximate), Expires: 11/10/2023 [facility] Comment on above: Expected: 08/11/2023 (Approximate), Expi res: 11/10/2023 Start: 08-11-2023 End: 11-10-2023 Iron and Iron binding capacity panel - Serum or Plasma IRON AND TIBC Lab Routine History of laminectomy Degenerative scoliosis in adult patient Pre-op testing Iron deficiency anemia, unspecified iron deficiency anemia type Expected: 08/11/2023 (Approximate), Expires: 11/10/2023 [facility] Work Phone: Comment on above: Expected: 08/11/2023 (Approximate), Expi res: 11/10/2023 Start: 08-11-2023 End: 11-10-2023 STAPHYLOCOCCUS AUREUS & MRSA SCREEN, PCR, NASAL STAPHYLOCOCCUS AUREUS & MRSA SCREEN, PCR, NASAL Lab Routine History of laminectomy Degenerative scoliosis in adult patient Pre-op testing Expected: 08/11/2023 (Approximate), Expires: 11/10/2023 [facility] Comment on above: Expected: 08/11/2023 (Approximate), Expi res: 11/10/2023 Start: 08-06-2023 End: 08-06-2023 Patient encounter procedure Pre Anesthes ia Comment on above: pre op pre op labs Start: 07-30-2023 End: 07-30-2023 Patient encounter procedure 07/30/2023 10:30 AM EDT Office [place] [address] pre op gc [employer] Phone Screening Comment on above: pre op gc Start: 03-10-2023 Advance Directive Discussion Advance Directive Discussion [facility] Start: 03-10-2023 Behavioral Health Screening Behavioral Health Screening [facility] Start: 03-10-2023 Depression Assessment Depression Assessment [facility] Start: 11-08-2022 Covid-19 Vaccine () Covid-19 Vaccine () [facility] Start: 11-08-2022 Influenza vaccination [facility] Start: 2022 Pneumococcal Vaccine: 65+ (1 of 1 - PCV) Pneumococcal Vaccine: 65+ (1 of 1 - PCV) [facility] Start: 2017 RSV Vaccine (1 - 1-dose 60+ series) RSV Vaccine (1 - 1-dose 60+ series) [facility] Start: 2017 RSV Vaccine (1 - Risk 60-74 years 1-dose series) RSV Vaccine (1 - Risk 60-74 years 1-dose series) [facility] Start: 2012 Prostate specific antigen measurement Prostate Cancer Screening Discussion [facility] Start: 2007 Pneumococcal Vaccine: 50+ (1 of 1 - PCV) Pneumococcal Vaccine: 50+ (1 of 1 - PCV) [facility] Start: 2007 Pneumococcal Vaccine: 65+ Years (1 of 1 - PCV) Pneumococcal Vaccine: 65+ Years (1 of 1 - PCV) [facility] Start: 2007 Shingrix Vaccine (1 of 2) Shingrix Vaccine (1 of 2) [facility] Start: 2002 Diabetes Screening Diabetes Screening [facility] Start: 2002 Screening for malignant neoplasm of colon [facility] Start: 1992 Lipid panel Lipid Screening [facility] Start: 1976 Urine microalbumin profile DTaP,Tdap,Td Vaccine (1 - Tdap) [facility] Start: 1975 Annual PCP Team Chronic Disease Visit Annual PCP Team Chronic Disease Visit [facility] Start: 1975 Anxiety Screening Anxiety Screening [facility] Start: 1975 BP Controlled (<130/80) BP Controlled (<130/80) [facility] Start: 1975 Depression Screening Depression Screening [facility] Start: 1975 Hepatitis C screening Hepatitis C Screening [facility] Start: 1957 Covid-19 Vaccine (#1) Covid-19 Vaccine (#1) [facility] Start: 1957 Screening for malignant neoplasm of colon [facility] CT Cervical spine WO contrast CT CERVICAL SPINE WO IVCON Radiology Routine Spinal stenosis of cervical region 05/14/2024 9:43 AM EST [facility] Work Phone: End: 12-11-2024 CT Lumbar spine WO contrast CT LUMBAR SPINE WO IVCON Radiology Routine Acute low back pain, unspecified back pain laterality, unspecified whether sciatica present 1 Occurrences starting 11/12/2023 until 12/11/2024 [facility] Comment on above: 1 Occurrences starting 11/12/2023 until 12/11/2024 ECG COMPLETE ECG COMPLETE ECG Routine Pre-op exam 08/06/2023 8:48 AM EDT [facility] Work Phone: End: 06-08-2025 ECG COMPLETE ECG COMPLETE ECG Routine SVT (supraventricular tachycardia) (HCC) Elevated troponin 1 Occurrences starting 06/08/2024 until 06/08/2025 [facility] Work Phone: Comment on above: 1 Occurrences starting 06/08/2024 until 06/08/2025 End: 04-30-2024 EMG(NEURO/NI) EMG(NEURO/NI) EMG Routine History of lumbar laminectomy for spinal cord decompression Degenerative scoliosis in adult patient Chronic low back pain, unspecified back pain laterality, unspecified whether sciatica present 1 Occurrences starting 04/30/2023 until 04/30/2024 [facility] Work Phone: Comment on above: 1 Occurrences starting 04/30/2023 until 04/30/2024 End: 11-11-2024 EMG(NEURO/NI) EMG(NEURO/NI) EMG Routine Adverse effect of treatment, sequela 1 Occurrences starting 11/12/2023 until 11/11/2024 [facility] Comment on above: 1 Occurrences starting 11/12/2023 until 11/11/2024 End: 03-04-2025 MR Cervical spine WO contrast MRI CERVICAL SPINE WO IVCON Radiology Routine Spinal stenosis of cervical region 1 Occurrences starting 02/03/2024 until 03/04/2025 [facility] Work Phone: Comment on above: 1 Occurrences starting 02/03/2024 until 03/04/2025 End: 12-11-2024 MR Lumbar spine WO contrast MRI LUMBAR SPINE WO IVCON Radiology Routine Adverse effect of treatment, sequela 1 Occurrences starting 11/12/2023 until 12/11/2024 [facility] Comment on above: 1 Occurrences starting 11/12/2023 until 12/11/2024 End: 12-11-2024 MR Thoracic spine WO contrast MRI THORACIC SPINE WO IVCON Radiology Routine Adverse effect of treatment, sequela 1 Occurrences starting 11/12/2023 until 12/11/2024 [facility] Work Phone: Comment on above: 1 Occurrences starting 11/12/2023 until 12/11/2024 End: 04-19-2024 Radex spine lumbosacral minimum 4 views XR LUMBAR MOTION 4V AP/LAT/ FLEX/EXT Radiology Routine Spinal stenosis, lumbar region with neurogenic claudication 1 Occurrences starting 03/21/2023 until 04/19/2024 [facility] Work Phone: Comment on above: 1 Occurrences starting 03/21/2023 until 04/19/2024 End: 06-05-2025 XR Cervical spine AP and Lateral XR CERV GENERAL 2V AP/LAT Radiology Routine Spinal stenosis of cervical region 1 Occurrences starting 05/06/2024 until 06/05/2025 [facility] Comment on above: 1 Occurrences starting 05/06/2024 until 06/05/2025 End: 07-29-2025 XR Cervical spine AP and Lateral XR CERV GENERAL 2V AP/LAT Radiology Routine S/P cervical spinal fusion 1 Occurrences starting 06/29/2024 until 07/29/2025 [facility] Work Phone: Comment on above: 1 Occurrences starting 06/29/2024 until 07/29/2025 End: 08-10-2024 XR Lumbar spine AP and Lateral XR LUMBAR LIMITED 2V AP/LAT Radiology Routine History of laminectomy Degenerative scoliosis in adult patient 1 Occurrences starting 07/11/2023 until 08/10/2024 [facility] Comment on above: 1 Occurrences starting 07/11/2023 until 08/10/2024 [facility] Immunizations Immunization Date Immunization Notes Care Provider [facility] 12-29-2020 influenza virus vaccine, unspecified formulation Shae Guillory [facility] 12-29-2020 SARS-CoV-2 (COVID-19 ) mRNA BNT-162b2 yolanda AGUSTIN [facility] [place] 06-09-2020 SARS-CoV-2 (COVID-19 ) mRNA BNT-162b2 yolanda AGUSTIN [facility] [place] 05-19-2020 SARS-CoV-2 (COVID-19 ) mRNA BNT-162b2 vax Camryn AGUSTIN [facility] Comment on above: Result Comment: 2022: [id number] NEGATED: Highlighted row has not occurred!04-03-2022 influenza virus vaccine, unspecified formulation Camryn AGUSTIN [facility] NEGATED: Highlighted row has not occurred!05-27-2019 influenza virus vaccine, live, attenuated, for intranasal use Camryn [facility] Payers Date Payer Category Payer Self-pay 2015 Private Health Insurance [id number] 1959 Private Health Insurance [id number] 1957 Unknown [id number] 1957 Unknown [id number] 1957 Unknown [id number] 1957 Unknown [id number] [id number] 1957 Unknown [id number] 1957 Unknown [id number] 1957 Unknown [id number] [id number] 1957 Unknown [id number] [id number] 1957 Unknown [id number] [id number] 1957 Unknown [id number] [id number] 1957 Unknown [id number] [id number] 1957 Unknown [id number] [id number] 1957 Unknown [id number] [id number] Unknown Regular Insurance [id number] Unknown [id number] Unknown [id number] Social History Date Type Detail Facility Start: 04-03-2022 End: 09-17-2024 Tobacco smoking status Never smoked tobacco (finding) [facility] Tobacco smoking status Never [facility] Start: 04-30-2023 End: 09-17-2024 Sex Assigned At Male [facility] Start: 1955 Sex Assigned At Male [facility] Start: 09-12-2008 End: 04-30-2023 Alcohol intake Not Asked [facility] Start: 03-20-2023 Gender identity Identifies as male gender (finding) [facility] Start: 03-20-2023 Sexual orientation Heterosexual (finding) [facility] Start: 04-30-2023 Tobacco use and exposure Former smokeless tobacco user [facility] End: 03-10-1999 History of tobacco use Chews Tobacco [facility] Start: 04-30-2023 End: 09-17-2024 History of Social function [facility] Start: 08-06-2023 End: 09-17-2024 Alcohol intake Lifetime non-drinker (finding) [facility] Has the electric, [employer], oil, or water company threatened to shut off services in your home in past 12Mo No [facility] (I/We) worried wheth er (my/our) food would run out before (I/we) got money to buy more. Never true [facility] consumption unknown [facility] Start: 1955 Sex assigned at Not on file [facility] Sex Male (finding) [facility] Start: 09-17-2024 Tobacco use and exposure Smokeless tobacco non-user [facility] Medical Equipment Procedure Code Equipment Code Equipment Origin al Text Equipment Identifier Dates Signify Gel Inst afill Cartridge 5cc [id number] Start: 08-19-2023 Creo Mis Locking Cap [id number] Sta rt: 08-19-2023 Graft Infuse 20g a Medium Bovine Collagen Rhbmp-2 2x1in Bone Vial Absorbable - [id number] Start: 08-19-2023 Signify Gel Inst afill [...] [id number] Start: 08-19-2023 Spacer Rise-L 3d Lordotic [id number] Spinal Nonsterile [id number] Start: 08-19-2023 Spacer Rise-L 3d Lordotic [id number] Spinal Nonsterile [id number] Start: 08-19-2023 Plate Canopy 9mm Bone Shelf Inline Spine - [id number] Start: 06-02-2024 Screw Canopy 2.6 mm 4mm Bone Self Drill Laminoplasty Spine - [id number] Start: 06-02-2024 Canopy 2.6mm Scr ew Self-Drilling 6mm [id number] Start: 06-02-2024 Functional Status Date Assessment Result Facility 06-08-2024 Are you deaf, or do you have serious difficulty hearing No 06/08/2024 3:04 PM Markus Crews RN No [facility] 06-08-2024 Are you blind, or do you have serious difficulty seeing, even when wearing glasses No 06/08/2024 3:04 PM Markus Crews RN No [facility] 06-08-2024 Do you have serious difficulty walking or climbing stairs No 06/08/2024 3:04 PM Markus Crews, PATRICIA No [facility] 06-08-2024 Do you have difficul ty dressing or bathing Yes 06/08/2024 3:04 PM Markus Crews, PATRICIA Yes [facility] 06-08-2024 Because of a physica l, mental, or emotional condition, do you have difficulty doing errands alone such as visiting a physician's office or shopping Yes 06/08/2024 3:04 PM Markus Crews, PATRICIA Yes [facility] 11-11-2023 Functional Status N/A [facility] 10-04-2023 Are you deaf, or do you have serious difficulty hearing No 10/04/2023 11:49 AM Hayley Parrish, PATRICIA No [facility] 10-04-2023 Are you blind, or do you have serious difficulty seeing, even when wearing glasses No 10/04/2023 11:49 AM Hayley Parrish RN No [facility] 10-04-2023 Do you have serious difficulty walking or climbing stairs No 10/04/2023 11:49 AM Hayley Parrish, PATRICIA No [facility] 10-04-2023 Do you have difficul ty dressing or bathing No 10/04/2023 11:49 AM Hayley Parrish, PATRICIA No [facility] 10-04-2023 Because of a physica l, mental, or emotional condition, do you have difficulty doing errands alone such as visiting a physician's office or shopping No 10/04/2023 11:49 AM Hayley Parrish, RN No [facility] 12-05-2022 Functional Status N/A [facility] [place] 10-30-2022 Functional Status N/A [facility] 09-04-2022 Functional Status No [facility] 04-03-2022 Functional Status N/A [facility] Mental Status Date Assessment Result Facility 06-08-2024 Because of a physica l, mental, or emotional condition, do you have serious difficulty concentrating, remembering, or making decisions Yes 06/08/2024 3:04 PM EDT Markus Mccord, PATRICIA Yes [facility] 10-04-2023 Because of a physica l, mental, or emotional condition, do you have serious difficulty concentrating, remembering, or making decisions No 10/04/2023 11:49 AM EDT Hayley Vivas RN No [facility] Clinical Notes 05-07-2022 to 07-15-2024 Alfonso Loyd PA-C - 07/15/2024 9:04 AM Alfonso Anne PA-C - 06/29/2024 9:18 AM EDTTelephone Encounter - Khushboo Mazariegos RN - 06/21/2024 8:30 AM Garcia Dorantes LPN - 06/16/2024 9:46 AM EDT Note Date & Type Note Facility 07-15-2024 Note [facility] 07-15-2024 History of Present illness Narrative Images from the original note were not included. SPINE SURGERY FOLLOW UP This is a virtual visit using [employer] Video Visit. It required patient-provider interaction for the medical decision making as documented below. I have communicated my name and active licensure. The patient's identity and physical location were verified at the time of this visit. Either the patient or their legal home furnishings sales representative has been informed of the risks [...] 9:13 AM PAGER: documented in this encounter [facility] 06-29-2024 Note [facility] 06-29-2024 History of Present illness Narrative Images from the original note were not included. SPINE SURGERY FOLLOW UP This is a virtual visit using [employer] Visit. It required patient-provider interaction for the medical decision making as documented below. I have communicated my name and active licensure. The patient's identity and physical location were verified at the time of this visit. Either the patient or their legal home furnishings sales representative has been informed of the risks [...] advised to coordinate cardiology care with existing active directory engineer in [place] since he does not want to come to [facility]. The majority of the visit was spent counseling and/or coordinating care for the patient. Total face to face time was 30 minutes. SIGNATURE: Alfonso Loyd PA-C PATIENT NAME: Braden Rodriguez DATE: June 29, 2024 TIME: 9:20 AM PAGER: documented in this encounter [facility] 06-21-2024 Telephone encounter Note Neuro SPINE CARE COORDINATION QUICK NOTE Patient requesting oxycodone refill. Last filled: 06/15/24 Surgery: 06/02/24 F/U: 06/29/24 [facility] 06-21-2024 Miscellaneous Notes Neuro SPINE CARE COORDINATION QUICK NOTE Patient requesting oxycodone refill. Last filled: 06/15/24 Surgery: 06/02/24 F/U: 06/29/24 documented in this encounter [facility] 06-16-2024 Note [facility] 06-16-2024 History of Present illness Narrative Images [...] Garcia Lomax LPN documented in this encounter [facility] 06-14-2024 Telephone encounter Note Had on 06/02/2024 [...] hours Taking Oxycodone 2 every 5 hours. [facility] 06-14-2024 Miscellaneous Notes Had on 06/02/2024 SURGERY/PROCEDURE: [...] every 5 hours. documented in this encounter [facility] 06-11-2024 Telephone encounter Note Neuro SPINE CARE [...] Luciano RN June 11, 2024 11:30 AM [facility] Work Phone: 06-11-2024 Miscellaneous Notes Neuro SPINE [...] 2024 11:30 AM documented in this encounter [facility] 06-10-2024 Telephone encounter Note Operations During Hospitalization: 06/02/2024: C3, C7 dome laminectomy, C4-6 laminoplasty [facility] 06-10-2024 Miscellaneous Notes Operations During Hospitalization: 06/02/2024: C3, C7 dome laminectomy, C4-6 laminoplasty documented in this encounter [facility] 06-09-2024 Telephone encounter Note Operations During Hospitalization: 06/02/2024: C3, C7 dome laminectomy, C4-6 laminoplasty Shared with RN team for review. [facility] 06-09-2024 Miscellaneous Notes Operations During Hospitalization: 06/02/2024: C3, C7 dome laminectomy, C4-6 laminoplasty Shared with RN team for review. documented in this encounter [facility] 06-08-2024 Note [facility] 06-08-2024 Note [facility] 06-08-2024 Note [facility] 06-07-2024 Note HNO ID: [id number] Author: MARKUS MCCORD RN Service: Nursing Author Type: Registered Nurse Type: Nursing Progress Note Filed: 06/07/2024 18:52 Note Text: Pt refusing telemetry. Mariel De Leon notified. [facility] 06-07-2024 Note [facility] 06-07-2024 Note [facility] 06-06-2024 Note [facility] 06-05-2024 Note [facility] 06-04-2024 Note [facility] 06-03-2024 Note [facility] 06-03-2024 Note [facility] 06-03-2024 Note [facility] 06-03-2024 Note [facility] 06-03-2024 Note [facility] 06-02-2024 Note [facility] 06-02-2024 Note [facility] 06-02-2024 Note [facility] 06-02-2024 Note [facility] 05-17-2024 Note [facility] 05-17-2024 History of Present illness Narrative Patient referred to Blood Management for pre-surgical optimization. Hgb 14.9 which exceeds Blood Management guidelines for intervention. documented in this encounter [facility] 05-14-2024 History of Present illness Narrative Radiology [...] PATIENT PRESENTS WITH AN IMPLANTABLE OR ATTACHED RAIL PROJECT ENGINEER: No RADIOLOGY DEPARTMENT: CT; Exam(s) Completed: [facility] PERIPHERAL IV DATA: Not applicable SIGNED BY: DEON Sierra May 14, 2024 9:44 AM documented in this encounter [facility] 05-14-2024 Note HNO ID: [id number] Author: ZHANG RODRÍGUEZ CT Service: Radiology Author [...] PATIENT PRESENTS WITH AN IMPLANTABLE OR ATTACHED RAIL PROJECT ENGINEER: No RADIOLOGY DEPARTMENT: CT; Exam(s) Completed: [facility] PERIPHERAL IV DATA: Not applicable SIGNED BY: DEON Sierra May 14, 2024 9:44 AM [facility] 05-12-2024 Note [facility] 05-12-2024 History of Present illness Narrative Images [...] 12:22 PM PAGER: documented in this encounter [facility] 05-12-2024 Instructions Rhona Boss MD - 05/12/2024 8:53 AM EST Images from the original note were not included. [facility] PATIENT PREOPERATIVE INSTRUCTIONS Katherine Keith MD has scheduled you for your procedure at this surgery center: [facility] [place] Scheduling Office: [phone] --[address] [place] [address]. Please read below carefully for your personalized [...] office. If you are currently using a trac-yuo-wjut injectable or oral medication for diabetes or [...] or other anticoagulants without consulting with your active directory engineer or prescribing physician. - Stop ALL herbal [...] please check with your dialysis center or small business director to see if any adjustments need to [...] Procedures: - YOU MUST HAVE A RESPONSIBLE BOLT HEADER TAKE YOU HOME. A LIQUIFIED NATURAL GAS TECHNICIAN OR LAMINATED PLASTICS ASSEMBLER AND GLUER CANNOT BE MADE A RESPONSIBLE BOLT HEADER. - We recommend that a responsible person [...] call the Friday before. Your surgeon s operations scheduler will tell you what time to call the office. - If you have not reached the departmental operations scheduler by 5 P.M., call [phone] after 5 P.M. the day before your surgery. Please be aware that emergency situations arise, which may delay or change your surgical time. If this happens, we will notify you as soon as possible and regret any inconvenience. If you already have an Advance Directive, please fax a copy to [phone] or email to for it to be [...] Rhona Boss MD documented in this encounter [facility] 05-12-2024 History and physical note Images from [...] [facility] Procedure:: [facility] Status of surgery/procedure:: Scheduled Date of surgery/procedure:: [...] fevers. Neurological: No history of TIA's, stroke, LINE ERECTOR APPRENTICE tumor, impaired sensorium, hemiplegia, paraplegia or quadraplegia. [...] 402 QTC Calculation (Bazett) 411 Calculated P [place] 59 Calculated R [place] 48 Calculated T [place] 72 Impression NORMAL SINUS RHYTHM POSSIBLE LEFT ATRIAL ENLARGEMENT BORDERLINE ECG No results found for this or any previous visit (from the past 74960 hours). Instructions Given to Patient: Instructions located in the after visit summary. Patient given verbal and written preop instructions and voices comprehension and compliance. SIGNATURE: Rhona Boss MD PATIENT NAME: Braden Rodriguez DATE: May 12, 2024 TIME: 8:38 AM PAGER/CONTACT #: [facility] 05-12-2024 History and physical note Images from [...] [facility] or Procedure:: [facility] Status of surgery/procedure:: Scheduled Date of surgery/procedure:: [...] fevers. Neurological: No history of TIA's, stroke, LINE ERECTOR APPRENTICE tumor, impaired sensorium, hemiplegia, paraplegia or quadraplegia. [...] 402 QTC Calculation (Bazett) 411 Calculated P [place] 59 Calculated R [place] 48 Calculated T [place] 72 Impression NORMAL SINUS RHYTHM POSSIBLE LEFT ATRIAL ENLARGEMENT BORDERLINE ECG No results found for this or any previous visit (from the past 12391 hours). Instructions Given to Patient: Instructions located in the after visit summary. Patient given verbal and written preop instructions and voices comprehension and compliance. SIGNATURE: Rhona Boss MD PATIENT NAME: Braden Rodriguez DATE: May 12, 2024 TIME: 8:38 AM PAGER/CONTACT #: documented in this encounter [facility] 05-05-2024 Note [facility] 05-05-2024 History of Present illness Narrative Virtual visit: I have communicated my name and active licensure. The patient's identity and physical location were verified at the time of this visit. Either the patient or their legal home furnishings sales representative has been informed of the risks and benefits of -- and alternatives to -- treatment through a remote evaluation and consents to proceed with the evaluation remotely. 10 minutes Follow up virtual visit. Last seen 01/12/25 and we decided to continuing to monitor his right foot drop which persisted. His left foot was starting to make some progress. He reports no knife changer the last 3 months. He feels [...] Katherine Keith MD documented in this encounter [facility] 02-21-2024 History of Present illness Narrative Radiology [...] PATIENT PRESENTS WITH AN IMPLANTABLE OR ATTACHED RAIL PROJECT ENGINEER: No RADIOLOGY DEPARTMENT: MR; Exam(s) Completed: Spine: Cervical spine PERIPHERAL IV DATA: Not applicable SIGNED BY: RT Lydia(R) February 21, 2024 4:25 PM documented in this encounter [facility] 02-21-2024 Note [facility] 02-03-2024 Telephone encounter Note Attempted to contact patient regarding Cervical MRI that was ordered Left detailed message on patient identified voicemail. Number to schedule provided. [facility] 02-03-2024 Miscellaneous Notes Attempted to contact patient regarding Cervical MRI that was ordered Left detailed message on patient identified voicemail. Number to schedule provided. documented in this encounter [facility] 01-13-2024 Note [facility] 01-13-2024 History of Present illness Narrative Images [...] Christopher MD (AJ) documented in this encounter [facility] 01-13-2024 Note [facility] 01-13-2024 History of Present illness Narrative UNIVERSAL [...] Care Visit completed when applicable. Mis Grimes, teacher of the hearing impaired Brian Mckeon MD documented in this encounter [facility] 01-13-2024 History of Present illness Narrative Radiology [...] PATIENT PRESENTS WITH AN IMPLANTABLE OR ATTACHED RAIL PROJECT ENGINEER: No RADIOLOGY DEPARTMENT: MR; Exam(s) Completed: Spine: Thoracic spine and Lumbar spine PERIPHERAL IV DATA: Not applicable SIGNED BY: RT Blossom(R) January 13, 2024 7:51 AM documented in this encounter [facility] 01-13-2024 Note [facility] 01-13-2024 History of Present illness Narrative Radiology [...] PATIENT PRESENTS WITH AN IMPLANTABLE OR ATTACHED RAIL PROJECT ENGINEER: No RADIOLOGY DEPARTMENT: CT; Exam(s) Completed: Spine PERIPHERAL IV DATA: Not applicable SIGNED BY: RT Cj(R) January 13, 2024 8:52 AM documented in this encounter [facility] 01-13-2024 Note [facility] 12-05-2023 Telephone encounter Note Called patient to follow up after steroid taper. No answer. Left message to return call to the office. [facility] 12-05-2023 Miscellaneous Notes Called patient to follow up after steroid taper. No answer. Left message to return call to the office. documented in this encounter [facility] 11-13-2023 Note Addended by: ALFONSO LOYD on: 11/13/2023 04:25 PM Modules accepted: Orders [facility] 11-13-2023 Miscellaneous Notes Addended by: ALFONSO LOYD on: 11/13/2023 04:25 PM Modules accepted: Orders documented in this encounter [facility] 11-12-2023 Note [facility] 11-12-2023 History of Present illness Narrative Images [...] above Meenakshi Morin MD Spine Surgery Fellow [phone] [facility]: [facility] ([facility]) Alevism: [id number] I reviewed the information obtained and documented by the fellow. I examined the patient and evaluated all available films and pertinent documents. We discussed the case and I agree with the plans as outlined in this note. SIGNATURE: Katherine Keith MD PATIENT NAME: Braden Rodriguez DATE: November 12, 2023 TIME: 2:47 PM PAGER: documented in this encounter [facility] 11-12-2023 History of Present illness Narrative Radiology [...] PATIENT PRESENTS WITH AN IMPLANTABLE OR ATTACHED RAIL PROJECT ENGINEER: No RADIOLOGY DEPARTMENT: General X-ray: Exam(s) Completed: Spine X-Ray(s): Lumbar AP / LAT / L5-S1 PERIPHERAL IV DATA: Not applicable SIGNED BY: RT Guillermo(R) November 12, 2023 1:13 PM documented in this encounter [facility] 11-12-2023 Note [facility] 11-11-2023 Telephone encounter Note Patient returned call and was transferred to RN Discussed we will not be able to refill the narcotic until tomorrow, and will review in office tomorrow. Patient also has questions and concerns for the nerve pain and right foot drop that has persisted. No further questions, he voiced appreciation for the call [facility] 11-11-2023 Miscellaneous Notes Patient returned call and [...] to the office. documented in this encounter [facility] 11-11-2023 Telephone encounter Note Attempted to contact patient to discuss his my chart message and medication refill request. Left message to return call to the office. [facility] 11-11-2023 Note General Surgery Offi ce/Clinic Note [...] mg= 1 cap( (more content not included)... [facility] Comment on above: Result Comment: Elec tronically Signed By: VASMI JERNIGAN, Camryn Baker\Date and Time Signed: 11/11/23 14:24 EDT 11-05-2023 Telephone encounter Note Prior auth completed, awaiting approval [facility] 11-05-2023 Miscellaneous Notes Prior auth completed, awaiting approval [facility] called re Rx Refill, needs a Pre-auth because insurance only cover 2 refills. Pls do the pre-auth through: covermymeds. The gibbons: [id number] (low/upper is ok). Pls let [facility] know once it's approved by call [phone] documented in this encounter [facility] 11-05-2023 Telephone encounter Note Prior auth completed [id number] [facility] 11-05-2023 Miscellaneous Notes Prior auth completed [id number] Received a fax from [employer] My [employer] requesting a prior authorization for: Hydrocodone-Acetaminophen 5-325 MG Tablets Cover My Meds Gibbons: [id number] Pharmacy: [facility] #[id number] Fax scanned in to pt's chart for our records. documented in this encounter [facility] 11-05-2023 Telephone encounter Note Received a fax from [employer] requesting a prior authorization for: Hydrocodone-Acetaminophen 5-325 MG Tablets Cover My Meds Gibbons: [id number] Pharmacy: [facility] #[id number] Fax scanned in to pt's chart for our records. [facility] 11-05-2023 Telephone encounter Note [facility] called re Rx Refill, needs a Pre-auth because insurance only cover 2 refills. Pls do the pre-auth through: covermymeds. The gibbons: [id number] (low/upper is ok). Pls let [facility] know once it's approved by call [phone] [facility] 10-23-2023 Note Addended by: ALFONSO LOYD on: 10/23/2023 11:22 AM Modules accepted: Orders [facility] 10-23-2023 Miscellaneous Notes Addended by: ALFONSO LOYD on: 10/23/2023 11:22 AM Modules accepted: Orders Called [facility] pharmacy and confirmed they do not have the Bledsoe available. Pharmacist cancelled order. Will update JUDY to send to new pharmacy listed. documented in this encounter [facility] 10-23-2023 Telephone encounter Note Called [facility] pharmacy and confirmed they do not have the Bledsoe available. Pharmacist cancelled order. Will update JUDY to send to new pharmacy listed. [facility] 10-21-2023 Note [facility] 10-21-2023 History of Present illness Narrative SPINE SURGERY FOLLOW UP This is a virtual visit using [employer] Video Visit. It required patient-provider interaction for the medical decision making as documented below. I have communicated my name and active licensure. The patient's identity and physical location were verified at the time of this visit. Either the patient or their legal home furnishings sales representative has been informed of the risks [...] 8:40 AM PAGER: documented in this encounter [facility] 10-16-2023 Telephone encounter Note Noted medication update. No Issue for change from surgical standpoint. [facility] 10-16-2023 Miscellaneous Notes Noted medication update. No Issue for change from surgical standpoint. Naye from Dr. Ester Cain's office called. Pt was seen yesterday complaining of the side effect from Gabapentin and the doctor change the medication to Lyrica 50 mg. documented in this encounter [facility] 10-16-2023 Telephone encounter Note Naye from Dr. Ester Cain's office called. Pt was seen yesterday complaining of the side effect from Gabapentin and the doctor change the medication to Lyrica 50 mg. [facility] Work Phone: 10-09-2023 Note Addended by: ALFONSO LOYD on: 10/09/2023 03:44 PM Modules accepted: Orders [facility] 10-09-2023 Miscellaneous Notes Addended by: ALFONSO LOYD on: 10/09/2023 03:44 PM Modules accepted: Orders documented in this encounter [facility] 10-04-2023 Note [facility] 10-04-2023 Note [facility] 10-04-2023 Note [facility] 10-03-2023 Note [facility] 10-03-2023 Note [facility] 10-02-2023 Note [facility] 10-02-2023 Note [facility] 09-30-2023 Telephone encounter Note Summary: Research Interest: [...] Medical Student Visiting Researcher OUTCOMES RESEARCH MAIN [facility] 09-30-2023 Miscellaneous Notes Summary: Research Interest: POUR [...] OUTCOMES RESEARCH MAIN documented in this encounter [facility] 09-30-2023 Note [facility] 09-30-2023 History of Present illness Narrative Neuro SPINE CARE COORDINATION PRE-OP VISIT Met with patient via phone for pre op education. Given both written and verbal instructions re : Skin prep, wound care, pain management and post op restrictions. Provided to patient: [facility] Surgery Guide, skin prep supplies, Spine Surgery Pre/post op education packet. Yes Reviewed with patient to report to desk J19 for surgery ? Yes. Reviewed with the patient to call [phone] the day before to get surgery report [...] Melody Castaneda RN documented in this encounter [facility] 09-24-2023 Telephone encounter Note CARE CONTINUUM ADVISOR ASSESSMENT PRIMARY CARE PHYSICIAN: Ester Cain MD OR Surgery Date: 10/02/23 Health Insurance: [employer] Financial Resources: Retired Primary Contact: Extended Emergency Contact Information Primary Emergency Contact: Marycarmen Rodriguez Address: [address] [place] [address] [facility] Mobile Relation: Spouse Secondary Emergency Contact: NORA RODRIGUEZ Mobile Relation: Son Other Important Patient Contacts: None Patient/Moveman Stated Goals: To have reduction in pain, To have reduction in symptoms, To improve my functional status, and To return home to life as it was Industrial Automation Specialist needed?: No ADVANCE DIRECTIVES: Does Patient Have [...] Fall: none reported Do you have a director community health nursing contact through your insurance or WRAAA?: No Has the Patient Been in a Penitentiary Facility in the Past 30 days? No FREEDOM OF CHOICE: Level of Care Discussed: Home Care Financial Disclosure Provided: No Financial Disclaimer Provided: No Provider List: Home Care Provider list within the patient's requested geographic area shared with the patient/family: Yes - Within [address] [place] [address] [place] [address] PAC Provider Choices Collected Home Health: no prefernece Interventions: N/A SIGNATURE: DALLAS Barros PATIENT NAME: Braden Rodriguez DATE: September 24, 2023 TIME: 1:00 PM PAGER/CONTACT #: [facility] 09-24-2023 Miscellaneous Notes CARE CONTINUUM ADVISOR ASSESSMENT PRIMARY CARE PHYSICIAN: Ester Cain MD OR Surgery Date: 10/02/23 Health Insurance: [employer] Financial Resources: Retired Primary Contact: Extended Emergency Contact Information Primary Emergency Contact: Marycarmen Rodriguez Address: [address] [place] [address] Mobile Relation: Spouse Secondary Emergency Contact: NORA RODRIGUEZ Mobile Relation: Son Other Important Patient Contacts: None Patient/Moveman Stated Goals: To have reduction in pain, To have reduction in symptoms, To improve my functional status, and To return home to life as it was Industrial Automation Specialist needed?: No ADVANCE DIRECTIVES: Does Patient Have [...] Fall: none reported Do you have a director community health nursing contact through your insurance or hive01AAA?: No Has the Patient Been in a Penitentiary Facility in the Past 30 days? No FREEDOM OF CHOICE: Level of Care Discussed: Home Care Financial Disclosure Provided: No Financial Disclaimer Provided: No Provider List: Home Care Provider list within the patient's requested geographic area shared with the patient/family: Yes - Within [address] [place] [address] PAC Provider Choices Collected Home Health: no prefernece Interventions: N/A SIGNATURE: DALLAS Barros PATIENT NAME: Braden Rodriguez DATE: September 24, 2023 TIME: 1:00 PM PAGER/CONTACT #: CM was able to leave a brief detailed message on identified vm requesting call back to discuss post op care. CM provided contact information. documented in this encounter [facility] 09-24-2023 Telephone encounter Note CM was able to leave a brief detailed message on identified vm requesting call back to discuss post op care. CM provided contact information. [facility] 09-16-2023 Telephone encounter Note Attempted to return call to home care PT Patient is coming back in for surgery in 2 weeks. Does not nee home care at this time. [facility] 09-16-2023 Miscellaneous Notes Attempted to return call to home care PT Patient is coming back in for surgery in 2 weeks. Does not nee home care at this time. Call received for Katherine Keith MD regarding Braden Rodriguez. Caller: Other: Devin with [facility] Patient Identified by Name and : Yes Reason for Call: Devin is calling to notify Dr. Keith that patient has not been seen for PT Devin states patient will not return calls Is there any additional information the provider should know? No, no response needed Last Office Visit: 09/04/2023 Next scheduled appointment: 10/08/2023 Best number to reach caller: Devin [phone] Best time to reach caller: 9 am till 5 pm Is it OK to leave a detailed voice message? Yes Melia Vieyra documented in this encounter [facility] 09-16-2023 Telephone encounter Note Call received for Katherine Keith MD regarding Braden Rodriguez. Caller: Other: Devin with [facility] Patient Identified by Name and : Yes Reason for Call: Devin is calling to notify Dr. Keith that patient has not been seen for PT Devin states patient will not return calls Is there any additional information the provider should know? No, no response needed Last Office Visit: 09/04/2023 Next scheduled appointment: 10/08/2023 Best number to reach caller: Devin [phone] Best time to reach caller: 9 am till 5 pm Is it OK to leave a detailed voice message? Yes Melia Vieyra [facility] 09-15-2023 Note Addended by: STEPHANE FAIR on: 09/15/2023 01:41 PM Modules accepted: Orders [facility] 09-15-2023 Miscellaneous Notes Addended by: STEPHANE FAIR [...] PA-C Spine Surgery documented in this encounter [facility] 09-15-2023 Telephone encounter Note Reviewed in patient notes Covering provider for Alfonso Loyd PA-C and Katherine Keith MD Patient's request for medication is as follows: Requested Prescriptions Pending Prescriptions Disp Refills oxyCODONE IR (ROXICODONE) 10 mg tab 42 tablet 0 Sig: Take 1 tablet by mouth every 4 hours as needed for pain for up to 7 days. Stephane Fair PA-C Spine Surgery [facility] 09-12-2023 Note Addended by: ALFONSO LOYD on: 09/12/2023 02:35 PM Modules accepted: Orders [facility] 09-12-2023 Miscellaneous Notes Addended by: ALFONSO LOYD on: 09/12/2023 02:35 PM Modules accepted: Orders documented in this encounter [facility] 09-10-2023 Note [facility] 09-10-2023 Note [facility] 09-10-2023 Note [facility] 09-09-2023 Note [facility] 09-09-2023 Note [facility] 09-09-2023 Note [facility] 09-08-2023 Note [facility] 09-08-2023 Note [facility] 09-05-2023 Telephone encounter Note Script was sent on 09/03. [facility] 09-05-2023 Miscellaneous Notes Script was sent on 09/03. documented in this encounter [facility] 09-04-2023 Telephone encounter Note Pt has an order that is from PA. A[facility]. Marianne from [facility] called and said pt was refusing Home Health. I did as her to call the ordering PA, she wanted it noted in his chart here, as well [facility] 09-04-2023 Miscellaneous Notes Pt has an order that is from PA. Arian[facility]. Marianne from [facility] called and said pt was refusing Home Health. I did as her to call the ordering PA, she wanted it noted in his chart here, as well documented in this encounter [facility] 09-02-2023 Telephone encounter Note Patient phones requesting refills as follows: Requested Prescriptions Pending Prescriptions Disp Refills oxyCODONE IR (ROXICODONE) 5 mg immediate release tablet 42 tablet 0 Sig: Take 1 tablet by mouth every 4 hours for 7 days. Last visit: 08/29/2023 Pharmacy: [facility], #[id number] Pharmacy Current Dosage: Patient is currently taking 1 tab every 4 hrs; Has enough for several days left. Please review and advise; [facility]: [phone] 09-02-2023 Miscellaneous Notes Patient phones requesting refills as follows: Requested Prescriptions Pending Prescriptions Disp Refills oxyCODONE IR (ROXICODONE) 5 mg immediate release tablet 42 tablet 0 Sig: Take 1 tablet by mouth every 4 hours for 7 days. Last visit: 08/29/2023 Pharmacy: [facility], #[id number] Pharmacy Current Dosage: Patient is currently taking 1 tab every 4 hrs; Has enough for several days left. Please review and advise; ph: [phone] [facility] documented in this encounter [facility] 09-01-2023 Telephone encounter Note Returned call to [...] review with Dr Keith and follow up. [facility] 09-01-2023 Miscellaneous Notes Returned call to patient [...] and follow up. documented in this encounter [facility] 08-29-2023 Telephone encounter Note Returned call to pharmacy. Advised Vikas Loyd did speak to patient regarding stopping the Bledsoe and taking Oxy. Also getting his pain medication through us during this post op time period. He voiced appreciation. No further questions. [facility] 08-29-2023 Miscellaneous Notes Returned call to pharmacy. Advised Vikas Loyd did speak to patient regarding stopping the Bledsoe and taking Oxy. Also getting his pain medication through us during this post op time period. He voiced appreciation. No further questions. Call received for Katherine Keith MD regarding Braden Rodriguez. Caller: Viviane Hopkins [facility] [place] Patient Identified by Name and : Yes [...] appointment: 10/08/2023 Best number to reach caller: [phone] Best time to reach caller: any Is it OK to leave a detailed voice message? Yes Winnie Quesada documented in this encounter [facility] 08-29-2023 Telephone encounter Note Call received for Katherine Keith MD regarding Braden Rodriguez. Caller: Viviane Hopkins [facility] [place] Patient Identified by Name and : Yes [...] appointment: 10/08/2023 Best number to reach caller: [phone] Best time to reach caller: any Is it OK to leave a detailed voice message? Yes Winnie Quesada [facility] 08-29-2023 Note [facility] 08-29-2023 History of Present illness Narrative SPINE SURGERY FOLLOW UP This is a virtual visit using anfix Zoom Video Visit. It required patient-provider interaction for the medical decision making as documented below. I have communicated my name and active licensure. The patient's identity and physical location were verified at the time of this visit. Either the patient or their legal home furnishings sales representative has been informed of the risks [...] operative pain is now more tolerable. Using Bledsoe from his PCP which is not as [...] His PCP filled his lat prescription for Bledsoe which is not providing relief. We discussed [...] 8:20 AM PAGER: documented in this encounter [facility] 08-22-2023 Note [facility] 08-21-2023 Note [facility] 08-21-2023 Note [facility] 08-20-2023 Note [facility] 08-20-2023 Note [facility] 08-20-2023 Note [facility] 08-20-2023 Note [facility] 08-19-2023 Note [facility] 08-19-2023 Note [facility] 08-19-2023 Note [facility] 08-11-2023 Telephone encounter Note CM was able to leave a brief detailed message on identifed vm requesting call back to discuss post op care. CM provided contact information. [facility] 08-11-2023 Miscellaneous Notes CM was able to leave a brief detailed message on identifed vm requesting call back to discuss post op care. CM provided contact information. documented in this encounter [facility] 08-10-2023 Note [facility] 08-10-2023 History of Present illness Narrative Patient [...] over the last year. Relieving factors include Bledsoe and steroids. Aggravating factors include repetitive movement. [...] fevers. Neuro: No history of TIA's, stroke, LINE ERECTOR APPRENTICE tumor, impaired sensorium, hemiplegia, paraplegia or quadraplegia. No neurological symptoms or problems. Respiratory: No history of current cough or dyspnea, or pneumonia in the past 6 weeks. No history of respiratory/pulmonary symptoms or problems. Cardiovascular:+htn, SVT Negative for Recent [place], Angina, CAD, Chest Pain GI: No history [...] Braden Rodriguez DATE: 08/06/2023 TIME: 10:18 AM [facility] 08-06-2023 History and physical note HISTORY AND [...] over the last year. Relieving factors include Bledsoe and steroids. Aggravating factors include repetitive movement. [...] fevers. Neuro: No history of TIA's, stroke, LINE ERECTOR APPRENTICE tumor, impaired sensorium, hemiplegia, paraplegia or quadraplegia. No neurological symptoms or problems. Respiratory: No history of current cough or dyspnea, or pneumonia in the past 6 weeks. No history of respiratory/pulmonary symptoms or problems. Cardiovascular:+htn, SVT Negative for Recent IL, Angina, CAD, Chest Pain GI: No history [...] Specific Question: Does consulting provider have [facility] access? Answer: Yes Type and Screen, 30 [...] TIME: 10:18 AM documented in this encounter [facility] 08-01-2023 Telephone encounter Note Duplicate, patient already spoke to RN (see phone encounter). [facility] 08-01-2023 Miscellaneous Notes Duplicate, patient already spoke to RN (see phone encounter). documented in this encounter [facility] 08-01-2023 Telephone encounter Note Patient accepts sooner date of 08/18 New education class on 08/11 at 2 PM Will change post ops He voiced appreciation. No further questions. [facility] 08-01-2023 Miscellaneous Notes Patient accepts sooner date of 08/18 New education class on 08/11 at 2 PM Will change post ops He voiced appreciation. No further questions. Patient is returning nurse call pertaining to below message, sooner appt call back [phone] Called patient to offer sooner surgery date Left message to return call to the office documented in this encounter [facility] 08-01-2023 Telephone encounter Note Patient is returning nurse call pertaining to below message, sooner appt call back [phone] [facility] 08-01-2023 Instructions Sanam Gill PA-C - 08/01/2023 9:35 AM EDT PATIENT PREOPERATIVE INSTRUCTIONS Katherine Keith MD has scheduled you for your procedure at this surgery center: [facility] Scheduling Office: [phone] --[address] [place] [address]. Please read below carefully for your personalized instructions. Arrival Time for Surgery: - To obtain your arrival time for surgery, call your physician's office the day before your surgery. - If your surgery is scheduled for Friday, call the Friday before. Your surgeon s operations scheduler will tell you what time to call the office. - If you have not reached the departmental operations scheduler by 5 P.M., call [phone] after 5 P.M. the day before your [...] Advance Directive, please fax a copy to [phone] or email to for it to be [...] Sanam Gill PA-C documented in this encounter [facility] 08-01-2023 Telephone encounter Note Called patient to offer sooner surgery date Left message to return call to the office [facility] 07-14-2023 Telephone encounter Note Received, Reviewed [facility] Attending Physician Statement [employer] forms and need signed by Dr. Keith Sent to Dr. Keith via [employer] for signature Leave dates: 09/02/23-11/07/23 No Post op appt scheduled as of yet. Garcia Maldonado LPN [facility] 07-14-2023 Miscellaneous Notes Received, Reviewed [employer] Attending Physician Statement [employer] forms and need signed by Dr. Keith Sent to Dr. Keith via [employer] for signature Leave dates: 09/02/23-11/07/23 No Post op appt scheduled as of yet. Garcia Maldonado LPN documented in this encounter [facility] 06-12-2023 Miscellaneous Notes Neuro SPINE CARE COORDINATION QUICK NOTE Called patient to discuss disability paperwork. His PCP has completed his previous STD paperwork Patient is not scheduled for surgery until August. Discussed this office will be able to complete his disability paperwork postop Advised to reach out to his PCP to continue with disability until surgery. Patient states [employer] only needs office note. This office will fax over the office note from 04/30 No further questions. I received [employer] forms for LTD. I called patient to explain we don't complete LTD, but he stated that he is not currently working and have exhausted his STD. He states the form is due 06/12/23. Sending to CC. Oliver to review Received Attending Physician's Statement from [employer] . Sent via [employer] for processing. documented in this encounter [facility] 05-29-2023 Miscellaneous Notes Neuro SPINE CARE COORDINATION [...] N/A TREK/MC N/A documented in this encounter [facility] 05-04-2023 History of Present illness Narrative Radiology [...] PATIENT PRESENTS WITH AN IMPLANTABLE OR ATTACHED RAIL PROJECT ENGINEER: No RADIOLOGY DEPARTMENT: CT; Exam(s) Completed: Spine PERIPHERAL IV DATA: Not applicable SIGNED BY: RT Eliseo(R) May 04, 2023 8:09 AM documented in this encounter [facility] 05-04-2023 Note HNO ID: [id number] Author: BLANCA PRICE RT(R) Service: Radiology Author [...] PATIENT PRESENTS WITH AN IMPLANTABLE OR ATTACHED RAIL PROJECT ENGINEER: No RADIOLOGY DEPARTMENT: CT; Exam(s) Completed: Spine PERIPHERAL IV DATA: Not applicable SIGNED BY: MARY Gomes) May 04, 2023 8:09 AM [facility] 04-30-2023 History of Present illness Narrative [...] PATIENT PRESENTS WITH AN IMPLANTABLE OR ATTACHED RAIL PROJECT ENGINEER: No RADIOLOGY DEPARTMENT: General X-ray: Exam(s) Completed: Spine X-Ray(s): Scoliosis Series PERIPHERAL IV DATA: Not applicable SIGNED BY: MARY Choi) April 30, 2023 1:42 PM documented in this encounter [facility] 04-30-2023 History of Present illness Narrative Images [...] Ester Cain MD REFERRING PROVIDER: Tobi Angeles [address] [facility] [place] [id number] Consult requested for an opinion regarding the [...] 11:51 AM PAGER: documented in this encounter [facility] 04-30-2023 History of Present illness Narrative Radiology [...] PATIENT PRESENTS WITH AN IMPLANTABLE OR ATTACHED RAIL PROJECT ENGINEER: No RADIOLOGY DEPARTMENT: General X-ray: Exam(s) Completed: Spine X-Ray(s): Lumbar AP / LAT / L5-S1 / FLEX-EXT PERIPHERAL IV DATA: Not applicable SIGNED BY: RT Guillermo(R) April 30, 2023 10:47 AM documented in this encounter [facility] 03-21-2023 History of Present illness Narrative Requesting to see Dr. Keith Left leg pain, trouble walking, numbness in the leg, weakness. He has tried: PT, NSAID, steroids, MR, Tramadol Previous surgery x 3 at [place] Lumbar MRI report with severe central stenosis of L3-4 and L4-5. XR ordered for an appointment with Dr. Keith. Patient name: Braden Rodriguez Are you being referred by a [facility] for Spine Health Provider or Pain Management Provider at [facility]? No If answer is YES please schedule [...] where the MRI/CT/myelogram was completed: MRI [facility] [address] [place] [address] MRI/CT/myelogram viewable in Epic: No If not, please provide [phone] to fax in imaging reports for review. Also, please inform patient to hand carry imaging disc to appointment. XR (spine) within 12 months: Yes If YES, please ask for the name/address of the facility where the XR was completed: Dr. Tobi Angeles MD [address], [place] [address] Dr. Davis's patients: Have you had previous [...] Starting PT 03/20/2023 for drop foot [facility] [place] [address] [place] [address] Have you tried any other kinds of [...] where the surgery was completed: 1999 laminectomy [place] 2012 lumbar surgery [place] 2019 lumbar surgery [place] Additional Comments [phone] documented in this encounter [facility] 12-05-2022 Hospital Discharge instructions Patient Education 12/05/2022 [...] treatment? Where to find more information The [employer]: www.cancer.org [place] [employer]: www.auanet.org Contact a health care [...] Document Reviewed: 08/20/2021 Elsevier Patient Education 2022 [employer]. Follow Up Care 11/27/2022 14:43:00 With:Kahlil JERNIGAN, MARLENA Salmon, URO Address: When: Unknown [facility] 10-30-2022 Hospital Discharge instructions Patient Education [...] treatment? Where to find more information The [place] [employer]: www.cancer.org [place] [employer] Association: www.auanet.org Contact a health care [...] provider. Document Revised: 08/20/2021 Document Reviewed: 08/20/2021 [employer] Patient Education 2022 [employer] Follow Up Care 09/04/2022 08:48:35 With:Kahlil JERNIGAN, MARLENA Salmon, URO Address: When:Within 2 Month(s) Comments:w/PSA [facility] 09-04-2022 Hospital Discharge instructions Patient Education [...] treatment? Where to find more information The [place] [employer]: www.cancer.org [employer] [employer]: www.auanet.org Contact a health care [...] provider. Document Revised: 08/20/2021 Document Reviewed: 08/20/2021 [employer] Patient Education 2022 [employer]. Follow Up Care 08/26/2022 10:02:45 With:Kahlil JERNIGAN, Shae Powell, URL, URO Address: When:Within 4 Week(s) Comments:w/ PSA [facility] 05-07-2022 Hospital Discharge instructions Follow Up Care 05/07/2022 15:08:01 With:Camryn AGUSTIN MD, SUR Address: [address] [place] [address] [place] [address]- When: only if needed General Surgery [facility] Evaluation + Plan note No data available for this section General Surgery Nelson Evaluation + Plan note Future Appointments Appointment Date:05/21/2022 02:40:00 PM Scheduled Provider:Camryn AGUSTIN MD Location:[facility] Appointment Type: Post Op 15 General Surgery Jvaed Evaluation + Plan note Future Appointments Appointment Date:09/24/2022 01:40:00 PM Scheduled Provider:Camryn AGUSTIN MD Location:[facility] Appointment Type: Established 15 Appointment Date:09/25/2022 08:45:00 AM Scheduled Provider:Shae Guillory MD Location:[facility] Appointment Type:URO Office Visit Diagnostic Tests PendingPSA Total 09/04/22PSA Free & Total 09/04/22 [facility] Evaluation + Plan note Future Appointments Appointment Date:01/08/2023 09:00:00 AM Scheduled Provider:Shae Guillory MD Location:[facility] Appointment Type:URO Office Visit Diagnostic Tests PendingPSA Free & Total 10/30/[address] [facility] Evaluation + Plan note Future Appointments Appointment Date:04/23/2023 09:45:00 AM Scheduled Provider:Shae Guillory MD Location:[facility] Appointment Type:URO Office Visit Diagnostic Tests PendingPSA Free & Total 12/05/22 [facility] Evaluation note No assessment inform ation available [facility] Work Phone: Evaluation note Diagnosis Spinal stenosis, lumbar region with neurogenic claudication- Primary [facility] Diagnosis History of lumbar laminectomy for spinal cord decompression Other postprocedural status Degenerative scoliosis in adult patient Chronic low back pain, unspecified back pain laterality, unspecified whether sciatica present [facility] Diagnosis Spinal stenosis, lumbar region with neurogenic claudication [facility] Diagnosis Chronic low back pain, unspecified back pain laterality, unspecified whether sciatica present [facility]* Diagnosis History of lumbar laminectomy for spinal cord decompression- Primary Other postprocedural status Degenerative scoliosis in adult patient Chronic low back pain, unspecified back pain laterality, unspecified whether sciatica present [facility] Diagnosis History of laminectomy- Primary Other postprocedural status Degenerative scoliosis in adult patient Pre-op testing Preoperative examination, unspecified Iron deficiency anemia, unspecified iron deficiency anemia type History of laminectomy Other postprocedural status Degenerative scoliosis in adult patient Pre-op testing Preoperative examination, unspecified [facility]* Diagnosis Pre-op exam- Primary Preoperative examination, unspecified Primary hypertension Unspecified essential hypertension SVT (supraventricular tachycardia) (HCC) Other specified cardiac dysrhythmias History of penicillin allergy Personal history of allergy to penicillin History of laminectomy Other postprocedural status Degenerative scoliosis in adult patient Pre-op testing Preoperative examination, unspecified [facility] Diagnosis Acute post-operative pain [facility] Diagnosis Acute post-operative pain [facility] Diagnosis Acute post-operative pain [facility] Diagnosis S/P lumbar fusion- Primary Arthrodesis status [facility] Diagnosis S/P lumbar spinal fusion- Primary Arthrodesis status Pre-op testing Preoperative examination, unspecified S/P lumbar spinal fusion Arthrodesis status [facility] Diagnosis S/P lumbar fusion Arthrodesis status S/P lumbar spinal fusion Arthrodesis status [facility] Diagnosis S/P lumbar spinal fusion- Primary Arthrodesis status S/P lumbar spinal fusion Arthrodesis status [facility] Diagnosis Post-op pain- Primary Other acute postoperative pain [facility] Diagnosis Post-op pain Other acute postoperative pain [facility] Diagnosis Right leg weakness- Primary Other musculoskeletal symptoms referable to limbs S/P lumbar fusion Arthrodesis status [facility] Diagnosis Post-op pain Other acute postoperative pain [facility]* Diagnosis Acute post-operative pain SVT (supraventricular [...] acute postoperative pain [facility] Diagnosis Acute post-operative pain SVT (supraventricular [...] pain [facility] Diagnosis Acute post-operative pain SVT (supraventricular [...] in adult patient [facility] Diagnosis Acute post-operative pain SVT (supraventricular [...] whether sciatica present [facility] Diagnosis Acute post-operative pain SVT (supraventricular [...] referable to limbs [facility] Diagnosis Acute post-operative pain SVT (supraventricular [...] of treatment, sequela [facility] Diagnosis Acute post-operative pain SVT (supraventricular [...] whether sciatica present [facility] Diagnosis Acute post-operative pain SVT (supraventricular [...] malaise and fatigue [facility] Diagnosis Acute post-operative pain SVT (supraventricular [...] in cervical region [facility] Diagnosis Acute post-operative pain SVT (supraventricular [...] in cervical region [facility] Diagnosis Acute post-operative pain SVT (supraventricular [...] in cervical region [facility] Diagnosis Acute post-operative pain SVT (supraventricular [...] in cervical region [facility] Diagnosis Acute post-operative pain SVT (supraventricular [...] in cervical region [facility] Diagnosis Acute post-operative pain SVT (supraventricular [...] in cervical region [facility] Diagnosis Acute post-operative pain SVT (supraventricular [...] in cervical region [facility] Diagnosis Acute post-operative pain Scoliosis of [...] abnormal blood chemistry [facility] Diagnosis Acute post-operative pain Scoliosis of [...] removal of sutures [facility] Diagnosis Acute post-operative pain Scoliosis of [...] acute postoperative pain [facility] Acute post-operative pain Scoliosis [...] status documented in this encounter [facility] note* Diagnosis Acute post-operative pain Scoliosis of [...] Primary Arthrodesis status documented in this encounter [facility] Discharge instructions No data available for this section General Surgery Javed Progress note No data available for this section General Surgery [employer] Reason for referral (narrative)* Diagnostic Procedure Only (Routine) - Pending Review Specialty Diagnoses / Procedures Referred By Contac t Referred To Contact XR IMAGING Diagnoses Spinal stenosis, lumbar region with neurogenic claudication Procedures XR LUMBAR MOTION 4V AP/LAT/ FLEX/EXT RADEX SPINE LUMBOSACRAL MINIMUM 4 VIEWS Alfonso Loyd PA-C [address] [place] [address] [place] [address] Referral ID Status Reason Start Date Expiration Date Visits Requested Visits Authorized [id number] Pending Review Auto-Generat ed Referral 03/21/2023 04/19/2024 1 1 [facility] for referral (narrative)* Diagnostic Procedure Only [...] W/SKULL 2/3 VW Katherine Keith MD [address] [place] [id number] Xr Imaging [id number] Referral ID Status Reason Start Date Expiration Date V isits Requested Visits Authorized [id number] Closed Auto-Generate d Referral 04/30/2023 05/29/2024 1 1 [facility] for referral (narrative)* Diagnostic Procedure Only (Routine) - Closed Specialty Diagnoses / Procedures Referred By Contac t Referred To Contact XR IMAGING Diagnoses Spinal stenosis, lumbar region with neurogenic claudication Procedures XR LUMBAR MOTION 4V AP/LAT/ FLEX/EXT RADEX SPINE LUMBOSACRAL MINIMUM 4 VIEWS Alfonso Loyd PA-C [address] [place] [address] [place] [address] Referral ID Status Reason Start Date Expiration Date V isits Requested Visits Authorized [id number] Closed Auto-Generate d Referral 03/21/2023 04/19/2024 1 1 [facility] for referral (narrative)* Outpatient Procedure (Routine) - Pending Review Specialty Diagnoses / Procedures Referred By Contac t Referred To Contact [facility] Diagnoses Pre-op exam Procedures ECG COMPLETE ECG ROUTINE ECG W/LEAST 12 LDS W/I&R Sanam Gill PA-C [address] [place] [address] [facility] [place] [address] [place] [address] Referral ID Status Reason Start Date Expiration Date Visits Requested Visits Authorized [id number] Pending Review Auto-Generat ed Referral 08/06/2023 08/05/2024 1 1 T [facility] for referral (narrative)* Diagnostic Procedure Only (Routine) - Closed Specialty Diagnoses / Procedures Referred By Lencho t Referred To Contact XR IMAGING Diagnoses History of laminectomy Degenerative scoliosis in adult patient Procedures XR LUMBAR LIMITED 2V AP/LAT RADEX SPINE LUMBOSACRAL 2/3 VIEWS Alfonso Loyd PA-C [address] [place] [address] Xr Imaging [id number] Referral ID Status Reason Start Date Expiration Date V isits Requested Visits Authorized [id number] Closed Auto-Generate d Referral 07/11/2023 08/09/2024 1 1 [facility] for referral (narrative)* Outpatient Procedure (Routine) - Pending Review Specialty Diagnoses / Procedures Referred By Contac t Referred To Contact [facility] Diagnoses Adverse effect of treatment, sequela Procedures EMG(NEURO/NI) NERVE CONDUCTION STUDIES 9-10 STUDIES Katherine Keith MD [address] [place] [address] [facility] [place] [address] [place] [id number] Referral ID Status Reason Start Date Expiration Date Visits Requested Visits Authorized [id number] Pending Review Auto-Generat ed Referral 11/12/2023 11/11/2024 1 1 * MRI/CT (Routine) - Authorized Specialty Diagnoses / Procedures Referred By Contac t Referred To Contact CT IMAGING Diagnoses Acute low back pain, unspecified back pain laterality, unspecified whether sciatica present Procedures CT LUMBAR SPINE WO IVCON CT LUMBAR SPINE W/O CONTRAST MATERIAL Katherine Keith MD [id number] [id number] Referral ID Status Reason Start Date Expiration Date Visits Requested Visits Authorized [id number] Authorized Auto-Generat ed Referral 11/12/2023 12/11/2024 1 1 * MRI/CT (Routine) - Authorized Specialty Diagnoses / Procedures Referred By Contac t Referred To Contact MR IMAGING Diagnoses Adverse effect of treatment, sequela Procedures MRI LUMBAR SPINE WO IVCON MRI SPINAL CANAL LUMBAR W/O CONTRAST MATERIAL Katherine Keith MD [address] [place] [address] Mr Imaging [id number] Referral ID Status Reason Start Date Expiration Date Visits Requested Visits Authorized [id number] Authorized Auto-Generat ed Referral 11/12/2023 12/11/2024 1 1 * MRI/CT (Routine) - Authorized Specialty Diagnoses / Procedures Referred By Contac t Referred To Contact MR IMAGING Diagnoses Adverse effect of treatment, sequela Procedures MRI THORACIC SPINE WO IVCON MRI SPINAL CANAL THORACIC W/O CONTRAST MATRL Katherine Keith MD [address] [place] [address] Mr Imaging [id number] Referral ID Status Reason Start Date Expiration Date Visits Requested Visits Authorized [id number] Authorized Auto-Generat ed Referral 11/12/2023 12/11/2024 1 1 [facility] for referral (narrative)* Diagnostic Procedure Only (Routine) - Closed Specialty Diagnoses / Procedures Referred By Contac t Referred To Contact MR IMAGING Diagnoses Spinal stenosis of cervical region Procedures MRI CERVICAL SPINE WO IVCON MRI SPINAL CANAL CERVICAL W/O CONTRAST MATRL Alfonso Loyd PA-C [address] [place] [address] Mr Imaging [place] [address] Referral ID Status Reason Start Date Expiration Date V isits Requested Visits Authorized [id number] Closed Auto-Generate d Referral 02/21/2024 03/09/2024 1 1 [facility] for referral (narrative)No reason for referral information [facility] Phone: Reason for visit Narrative* MRI/CT (Routine) - Closed Specialty Diagnoses / Procedures Referred By Contac t Referred To Contact CT IMAGING Diagnoses Spinal stenosis of cervical region Procedures CT CERVICAL SPINE WO IVCON CT CERVICAL SPINE W/O CONTRAST MATERIAL Katherine Keith MD [address] [place] [address] Phone: tel: fax: CT IM[id number] Referral ID Status Reason Start Date Expiration Date V isits Requested Visits Authorized [id number] Closed Auto-Generate d Referral 05/14/2024 03/09/2025 1 1 [facility] Summary Purpose Family History No Family History [...] CERVICAL W/O CONTRAST Alfonso Campos PA-C [address] [id number] [facility] [place] [address] Referral ID Status Reason Start Date Expiration Date Visits Requested Visits Authorized [id number] New Request Auto-Generat ed Referral 03/04/2025 1 1 Specialty Diagnoses / Procedures Referred By Contac t Referred To Contact CT IMAGING Diagnoses Acute low back pain, unspecified back pain laterality, unspecified whether sciatica present Procedures CT LUMBAR SPINE WO IVCON CT LUMBAR SPINE W/O CONTRAST MATERIAL Katherine Keith MD [id number] [id number] Referral ID Status Reason Start Date Expiration Date V isits Requested Visits Authorized [id number] Closed Auto-Generate d Referral 11/12/2023 12/11/2024 1 1 Specialty Diagnoses / Procedures Referred By Contac t Referred To Contact MR IMAGING Diagnoses Adverse effect of treatment, sequela Procedures MRI LUMBAR SPINE WO IVCON MRI SPINAL CANAL LUMBAR W/O CONTRAST MATERIAL Katherine eKith MD [address] [place] [address] Mr Imaging [id number] Referral ID Status Reason Start Date Expiration Date V isits Requested Visits Authorized [id number] Closed Auto-Generate d Referral 11/12/2023 12/11/2024 1 1 Specialty Diagnoses / Procedures Referred By Contac t Referred To Contact [facility] Diagnoses Right leg weakness S/P lumbar fusion Procedures CONSULT TO PHYSICAL THERAPY PHYSICAL THERAPY EVALUATION [facility] 45 MINS Alfonso Loyd PA-C [address] [id number] [facility] [place] [address] [place], [place] [id number] Referral ID Status Reason Start Date Expiration Date Visits Requested Visits Authorized [id number] Pending Review Auto-Generat ed Referral 10/21/2023 10/20/2024 1 1 Specialty Diagnoses / Procedures Referred By Contac t Referred To Contact Diagnoses History of laminectomy Degenerative scoliosis in adult patient Pre-op testing Procedures REFER TO [facility] - PRE ANESTHESIA CONSULTATION CLINIC OFFICE/OUTPATIENT [facility]ARE [facility] 60 MINUTES Alfnoso Loyd PA-C [address] [place] [address] Referral ID Status Reason Start Date Expiration Date Visits Requested Visits Authorized [id number] Authorized PCP Requested Referral 07/11/2023 07/10/2024 1 1 Specialty Diagnoses / Procedures Referred By Contac t Referred To Contact XR IMAGING Diagnoses History of laminectomy Degenerative scoliosis in adult patient Procedures XR LUMBAR LIMITED 2V AP/LAT RADEX SPINE LUMBOSACRAL 2/3 VIEWS Alfonso Loyd PA-C [address] [place] [address] X[facility] [place] [address] Referral ID Status Reason Start Date Expiration Date Visits Requested Visits Authorized [id number] Pending Review Auto-Generat ed Referral 07/11/2023 08/09/2024 1 1 Specialty Diagnoses / Procedures Referred By Contac t Referred To Contact [facility] Diagnoses History of lumbar laminectomy for spinal cord decompression Degenerative scoliosis in adult patient Chronic low back pain, unspecified back pain laterality, unspecified whether sciatica present Procedures EMG(NEURO/NI) NERVE CONDUCTION STUDIES 9-10 STUDIES Katherine Keith MD [address] [place] [address] [facility] [place] [address] [place], [place] [id number] Referral ID Status Reason Start Date Expiration Date Visits Requested Visits Authorized [id number] Authorized Auto-Generat ed Referral 05/06/2023 03/09/2024 1 1 Specialty Diagnoses / Procedures Referred By Contac t Referred To Contact CT IMAGING Diagnoses Chronic low back pain, unspecified back pain laterality, unspecified whether sciatica present Procedures CT LUMBAR SPINE WO IVCON CT LUMBAR SPINE W/O CONTRAST MATERIAL Katherine Keith MD [address] [place] [address] Ct [facility] [place] [address] Referral ID Status Reason Start Date Expiration Date V isits Requested Visits Authorized [id number] Closed Auto-Generate d Referral 04/30/2023 05/29/2024 1 [...] SPI W/SKULL 2/3 VW Katherine Keith MD [address] [place] [address] Xr [facility] [place] [address] Referral ID Status Reason Start Date Expiration Date V isits Requested Visits Authorized [id number] Closed Auto-Generate d Referral 04/30/2023 05/29/2024 1 1 Specialty Diagnoses / Procedures Referred By Contac t Referred To Contact CT IMAGING Diagnoses Chronic low back pain, unspecified back pain laterality, unspecified whether sciatica present Procedures CT LUMBAR SPINE WO IVCON CT LUMBAR SPINE W/O CONTRAST MATERIAL Katherine Keith MD [address] [facility] [place] [address] Ct Imaging [id number] Referral ID Status Reason Start Date Expiration Date V isits Requested Visits Authorized [id number] Closed Auto-Generate d Referral 04/30/2023 05/29/2024 1 1 Additional Source Comments (unrecognized sect ion and content) No Status Records FoundNo Status Records FoundNo Status Records FoundNo Status Records FoundNo Status Records FoundNo Status Records FoundNo Status Records FoundNo Status Records FoundNo Status Records FoundNo Status Records Found INFORMATION SOURCE (unrecogn ized section and content) DATE CREATED AUTHOR 05/16/2020 [facility] DATE CREATED AUTHOR AUTHOR'S ORGANIZ ATION 09/06/2020 [facility] DATE CREATED AUTHOR AUTHOR'S ORGANIZ ATION 05/18/2022 [facility] DATE CREATED AUTHOR AUTHOR'S ORGANIZ ATION 06/13/2022 [facility] DATE CREATED AUTHOR AUTHOR'S ORGANIZ ATION 08/18/2023 [facility] DATE CREATED AUTHOR AUTHOR'S ORGANIZ ATION 05/16/2024 [facility] DATE CREATED AUTHOR AUTHOR'S ORGANIZ ATION 07/17/2024 [facility] DATE CREATED AUTHOR AUTHOR'S ORGANIZ ATION 10/02/2024 [facility] DATE CREATED AUTHOR AUTHOR'S ORGANIZ ATION 10/08/2024 [facility] DATE CREATED AUTHOR AUTHOR'S ORGANIZ ATION 10/31/2024 [facility] Patient Care team informatio n (unrecognized section and content) Team Status: Active Member Role Status Dates Ester Cain MD Primary Care Provider Active Team Status: Inactive Member Role Status Dates Ester Cain MD Primary Care Provider Active Shae Guillory MD Attending Provider Active English Lecturer Relationship Specialty Start Date End Date Ester Cain MD PCP - General 05/05/06 English Lecturer Relationship Specialty Start Date End Date Ester Cain MD PCP - General 05/05/06 English Lecturer Relationship Specialty Start Date End Date Ester Cain MD PCP - General 05/05/06 English Lecturer Relationship Specialty Start Date End Date Ester Cain MD PCP - General 05/05/06 English Lecturer Relationship Specialty Start Date End Date Ester Cain MD PCP - General 05/05/06 English Lecturer Relationship Specialty Start Date End Date Ester Cain MD PCP - General 05/05/06 English Lecturer Relationship Specialty Start Date End Date Ester Cain MD PCP - General 05/05/06 English Lecturer Relationship Specialty Start Date End Date Ester Cain MD PCP - General 05/05/06 English Lecturer Relationship Specialty Start Date End Date Ester Cain MD PCP - General 05/05/06 English Lecturer Relationship Specialty Start Date End Date Ester Cain MD PCP - General 05/05/06 English Lecturer Relationship Specialty Start Date End Date Ester Cain MD PCP - General 05/05/06 English Lecturer Relationship Specialty Start Date End Date Ester Cain MD PCP - General 05/05/06 English Lecturer Relationship Specialty Start Date End Date Ester Cain MD PCP - General 05/05/06 English Lecturer Relationship Specialty Start Date End Date Ester Cain MD PCP - General 05/05/06 English Lecturer Relationship Specialty Start Date End Date Ester Cain MD PCP - General 05/05/06 English Lecturer Relationship Specialty Start Date End Date Ester Cain MD PCP - General 05/05/06 English Lecturer Relationship Specialty Start Date End Date Ester Cain MD PCP - General 05/05/06 English Lecturer Relationship Specialty Start Date End Date Ester Cain MD PCP - General 05/05/06 English Lecturer Relationship Specialty Start Date End Date Ester Cain MD PCP - General 05/05/06 Katherine Keith Md, [facility] 09/07/23 English Lecturer Relationship Specialty Start Date End Date Ester Cain MD PCP - General 05/05/06 Katherine Keith Md, [facility] 09/07/23 English Lecturer Relationship Specialty Start Date End Date Ester Cain MD PCP - General 05/05/06 Katherine Keith Md, [facility] 09/07/23 English Lecturer Relationship Specialty Start Date End Date Ester Cain MD PCP - General 05/05/06 Katherine Keith Md, [facility] 09/07/23 English Lecturer Relationship Specialty Start Date End Date Ester Cain MD PCP - General 05/05/06 Katherine Keith Md, [facility] 09/07/23 English Lecturer Relationship Specialty Start Date End Date Ester Cain MD PCP - General 05/05/06 Katherine Keith Md, [facility] 09/07/23 English Lecturer Relationship Specialty Start Date End Date Ester Cain MD PCP - General 05/05/06 Katherine Keith Md, [facility] 09/07/23 English Lecturer Relationship Specialty Start Date End Date Ester Cain MD PCP - General 05/05/06 Katherine Keith Md, [facility] 09/07/23 English Lecturer Relationship Specialty Start Date End Date Ester Cain MD PCP - General 05/05/06 Katherine Keith Md, [facility] 09/07/23 English Lecturer Relationship Specialty Start Date End Date Ester Cain MD PCP - General 05/05/06 Katherine Keith Md, [facility] 09/07/23 English Lecturer Relationship Specialty Start Date End Date Ester Cain MD PCP - General 05/05/06 Katherine Keith Md, [facility] 09/07/23 English Lecturer Relationship Specialty Start Date End Date Ester Cain MD PCP - General 05/05/06 Katherine Keith Md, [facility] 09/07/23 English Lecturer Relationship Specialty Start Date End Date Ester Cain MD PCP - General 05/05/06 Katherine Keith Md, [facility] 09/07/23 English Lecturer Relationship Specialty Start Date End Date Ester Cain MD PCP - General 05/05/06 Katherine Keith Md, MD [facility] 09/07/23 English Lecturer Relationship Specialty Start Date End Date Ester Cain MD PCP - General 05/05/06 Katherine Keith Md, [facility] 09/07/23 English Lecturer Relationship Specialty Start Date End Date Ester Cain MD PCP - General 05/05/06 Katherine Keith Md, MD [facility] 09/07/23 English Lecturer Relationship Specialty Start Date End Date Ester Cain MD PCP - General 05/05/06 Katherine Keith Md, [facility] 09/07/23 Team Status: Inactive Member Role Status Dates Ester Cain MD Primary Care Provider Active Start: November 26, 2023 End: November 26, 2023 Camryn Agustin MD [facility] Attending Provider Active Start: November 26, 2023 End: November 26, 2023 English Lecturer Relationship Specialty Start Date End Date Ester Cain MD PCP - General 05/05/06 Katherine Keith Md, [facility] 09/07/23 English Lecturer Relationship Specialty Start Date End Date Ester Cain MD PCP - General 05/05/06 Katherine Keith Md, [facility] 09/07/23 English Lecturer Relationship Specialty Start Date End Date Ester Cain MD PCP - General 05/05/06 Katherine Keith Md, MD [facility] 09/07/23 English Lecturer Relationship Specialty Start Date End Date Ester Cain MD PCP - General 05/05/06 Katherine Keith Md, MD [facility] 09/07/23 English Lecturer Relationship Specialty Start Date End Date Ester Cain MD PCP - General 05/05/06 Katherine Keith Md, [facility] 09/07/23 English Lecturer Relationship Specialty Start Date End Date Ester Cain MD PCP - General 05/05/06 Katherine Keith Md, MD [facility] 09/07/23 English Lecturer Relationship Specialty Start Date End Date Ester Cain MD PCP - General 05/05/06 Katherine Keith Md, MD [facility] 09/07/23 English Lecturer Relationship Specialty Start Date End Date Ester Cain MD PCP - General 05/05/06 Katherine Keith Md, MD [facility] 09/07/23 English Lecturer Relationship Specialty Start Date End Date Ester Cain MD PCP - General 05/05/06 Katherine Keith Md, [facility] 09/07/23 English Lecturer Relationship Specialty Start Date End Date Ester Cain MD PCP - General 05/05/06 Katherine Keith Md, [facility] 09/07/23 English Lecturer Relationship Specialty Start Date End Date Ester Cain MD PCP - General 05/05/06 Katherine Keith Md, MD [facility] 09/07/23 English Lecturer Relationship Specialty Start Date End Date Ester Cain MD PCP - General 05/05/06 Katherine Keith Md, MD [facility] 09/07/23 English Lecturer Relationship Specialty Start Date End Date Ester Cain MD PCP - General 05/05/06 Katherine Keith Md, [facility] 09/07/23 English Lecturer Relationship Specialty Start Date End Date Ester Cain MD PCP - General 05/05/06 Katherine Keith Md, [facility] 09/07/23 English Lecturer Relationship Specialty Start Date End Date Ester Cain MD PCP - General 05/05/06 Katherine Keith Md, [facility] 09/07/23 English Lecturer Relationship Specialty Start Date End Date Ester Cain MD PCP - General 05/05/06 Katherine Keith Md, [facility] 09/07/23 English Lecturer Relationship Specialty Start Date End Date Ester Cain MD PCP - General 05/05/06 Katherine Keith Md, [facility] 09/07/23 English Lecturer Relationship Specialty Start Date End Date Ester Cain MD PCP - General 05/05/06 Katherine Keith Md, [facility] 09/07/23 English Lecturer Relationship Specialty Start Date End Date Ester Cain MD PCP - General 05/05/06 Katherine Keith Md, [facility] 09/07/23 English Lecturer Relationship Specialty Start Date End Date Ester Cain MD PCP - General 05/05/06 Katherine Keith Md, [facility] 09/07/23 English Lecturer Relationship Specialty Start Date End Date Ester Cain MD PCP - General 05/05/06 Katherine Keith Md, Spine [facility] 09/07/23 English Lecturer Relationship Specialty Start Date End Date Ester Cain MD PCP - General 05/05/06 Katherine Keith Md, [facility] 09/07/23 English Lecturer Relationship Specialty Start Date End Date Ester Cain MD PCP - General 05/05/06 Katherine Keith Md, [facility] 09/07/23 English Lecturer Relationship Specialty Start Date End Date Ester Cain MD PCP - General 05/05/06 Katherine Keith Md, [facility] 09/07/23 English Lecturer Relationship Specialty Start Date End Date Ester Cain MD [address] [place] [address] PCP - General Family Medicine 09/08/24 Team [...] October 06, 2024 End: October 06, 2024 English Lecturer Relationship Specialty Start Date End Date Ester Cain MD [address] [place] [id number] PCP - General Family Medicine 09/08/24 Goals [...] or prosecute any alcohol or drug abuse patient.[facility] SystemIn the event this information is protected by the Federal Confidentiality of Alcohol and Drug Abuse Patient Records regulations: The Federal rules restrict any use of the information to criminally investigate or prosecute any alcohol or drug abuse patient.[facility] SystemIn the event this information is protected by the Federal Confidentiality of Alcohol and Drug Abuse Patient Records regulations: The Federal rules restrict any use of the information to criminally investigate or prosecute any alcohol or drug abuse patient.[facility] SystemIn the event this information is protected by the Federal Confidentiality of Alcohol and Drug Abuse Patient Records regulations: The Federal rules restrict any use of the information to criminally investigate or prosecute any alcohol or drug abuse patient.[facility] SystemIn the event this information is protected by the Federal Confidentiality of Alcohol and Drug Abuse Patient Records regulations: The Federal rules restrict any use of the information to criminally investigate or prosecute any alcohol or drug abuse patient.[facility] SystemIn the event this information is protected by the Federal Confidentiality of Alcohol and Drug Abuse Patient Records regulations: The Federal rules restrict any use of the information to criminally investigate or prosecute any alcohol or drug abuse patient.[facility] SystemIn the event this information is protected by the Federal Confidentiality of Alcohol and Drug Abuse Patient Records regulations: The Federal rules restrict any use of the information to criminally investigate or prosecute any alcohol or drug abuse patient.[facility] SystemIn the event this information is protected by the Federal Confidentiality of Alcohol and Drug Abuse Patient Records regulations: The Federal rules restrict any use of the information to criminally investigate or prosecute any alcohol or drug abuse patient.[facility] SystemIn the event this information is protected by the Federal Confidentiality of Alcohol and Drug Abuse Patient Records regulations: The Federal rules restrict any use of the information to criminally investigate or prosecute any alcohol or drug abuse patient.[facility] SystemIn the event this information is protected by the Federal Confidentiality of Alcohol and Drug Abuse Patient Records regulations: The Federal rules restrict any use of the information to criminally investigate or prosecute any alcohol or drug abuse patient.[facility] SystemIn the event this information is protected by the Federal Confidentiality of Alcohol and Drug Abuse Patient Records regulations: The Federal rules restrict any use of the information to criminally investigate or prosecute any alcohol or drug abuse patient.[facility] SystemIn the event this information is protected by the Federal Confidentiality of Alcohol and Drug Abuse Patient Records regulations: The Federal rules restrict any use of the information to criminally investigate or prosecute any alcohol or drug abuse patient.[facility] SystemIn the event this information is protected by the Federal Confidentiality of Alcohol and Drug Abuse Patient Records regulations: The Federal rules restrict any use of the information to criminally investigate or prosecute any alcohol or drug abuse patient.[facility] SystemIn the event this information is protected by the Federal Confidentiality of Alcohol and Drug Abuse Patient Records regulations: The Federal rules restrict any use of the information to criminally investigate or prosecute any alcohol or drug abuse patient.[facility] SystemIn the event this information is protected by the Federal Confidentiality of Alcohol and Drug Abuse Patient Records regulations: The Federal rules restrict any use of the information to criminally investigate or prosecute any alcohol or drug abuse patient.[facility] SystemIn the event this information is protected by the Federal Confidentiality of Alcohol and Drug Abuse Patient Records regulations: The Federal rules restrict any use of the information to criminally investigate or prosecute any alcohol or drug abuse patient.[facility] SystemIn the event this information is protected by the Federal Confidentiality of Alcohol and Drug Abuse Patient Records regulations: The Federal rules restrict any use of the information to criminally investigate or prosecute any alcohol or drug abuse patient.[facility] SystemIn the event this information is protected by the Federal Confidentiality of Alcohol and Drug Abuse Patient Records regulations: The Federal rules restrict any use of the information to criminally investigate or prosecute any alcohol or drug abuse patient.[facility] SystemIn the event this information is protected by the Federal Confidentiality of Alcohol and Drug Abuse Patient Records regulations: The Federal rules restrict any use of the information to criminally investigate or prosecute any alcohol or drug abuse patient.[facility] SystemIn the event this information is protected by the Federal Confidentiality of Alcohol and Drug Abuse Patient Records regulations: The Federal rules restrict any use of the information to criminally investigate or prosecute any alcohol or drug abuse patient.[facility] SystemIn the event this information is protected by the Federal Confidentiality of Alcohol and Drug Abuse Patient Records regulations: The Federal rules restrict any use of the information to criminally investigate or prosecute any alcohol or drug abuse patient.[facility] SystemIn the event this information is protected by the Federal Confidentiality of Alcohol and Drug Abuse Patient Records regulations: The Federal rules restrict any use of the information to criminally investigate or prosecute any alcohol or drug abuse patient.[facility] SystemIn the event this information is protected by the Federal Confidentiality of Alcohol and Drug Abuse Patient Records regulations: The Federal rules restrict any use of the information to criminally investigate or prosecute any alcohol or drug abuse patient.[facility] SystemIn the event this information is protected by the Federal Confidentiality of Alcohol and Drug Abuse Patient Records regulations: The Federal rules restrict any use of the information to criminally investigate or prosecute any alcohol or drug abuse patient.[facility] SystemIn the event this information is protected by the Federal Confidentiality of Alcohol and Drug Abuse Patient Records regulations: The Federal rules restrict any use of the information to criminally investigate or prosecute any alcohol or drug abuse patient.[facility] SystemIn the event this information is protected by the Federal Confidentiality of Alcohol and Drug Abuse Patient Records regulations: The Federal rules restrict any use of the information to criminally investigate or prosecute any alcohol or drug abuse patient.[facility] SystemIn the event this information is protected by the Federal Confidentiality of Alcohol and Drug Abuse Patient Records regulations: The Federal rules restrict any use of the information to criminally investigate or prosecute any alcohol or drug abuse patient.[facility] SystemIn the event this information is protected by the Federal Confidentiality of Alcohol and Drug Abuse Patient Records regulations: The Federal rules restrict any use of the information to criminally investigate or prosecute any alcohol or drug abuse patient.[facility] SystemIn the event this information is protected by the Federal Confidentiality of Alcohol and Drug Abuse Patient Records regulations: The Federal rules restrict any use of the information to criminally investigate or prosecute any alcohol or drug abuse patient.[facility] SystemIn the event this information is protected by the Federal Confidentiality of Alcohol and Drug Abuse Patient Records regulations: The Federal rules restrict any use of the information to criminally investigate or prosecute any alcohol or drug abuse patient.[facility] SystemIn the event this information is protected by the Federal Confidentiality of Alcohol and Drug Abuse Patient Records regulations: The Federal rules restrict any use of the information to criminally investigate or prosecute any alcohol or drug abuse patient.[facility] SystemIn the event this information is protected by the Federal Confidentiality of Alcohol and Drug Abuse Patient Records regulations: The Federal rules restrict any use of the information to criminally investigate or prosecute any alcohol or drug abuse patient.[facility] SystemIn the event this information is protected by the Federal Confidentiality of Alcohol and Drug Abuse Patient Records regulations: The Federal rules restrict any use of the information to criminally investigate or prosecute any alcohol or drug abuse patient.[facility] SystemIn the event this information is protected by the Federal Confidentiality of Alcohol and Drug Abuse Patient Records regulations: The Federal rules restrict any use of the information to criminally investigate or prosecute any alcohol or drug abuse patient.[facility] SystemIn the event this information is protected by the Federal Confidentiality of Alcohol and Drug Abuse Patient Records regulations: The Federal rules restrict any use of the information to criminally investigate or prosecute any alcohol or drug abuse patient.[facility] SystemIn the event this information is protected by the Federal Confidentiality of Alcohol and Drug Abuse Patient Records regulations: The Federal rules restrict any use of the information to criminally investigate or prosecute any alcohol or drug abuse patient.[facility] SystemIn the event this information is protected by the Federal Confidentiality of Alcohol and Drug Abuse Patient Records regulations: The Federal rules restrict any use of the information to criminally investigate or prosecute any alcohol or drug abuse patient.[facility] SystemIn the event this information is protected by the Federal Confidentiality of Alcohol and Drug Abuse Patient Records regulations: The Federal rules restrict any use of the information to criminally investigate or prosecute any alcohol or drug abuse patient.[facility] SystemIn the event this information is protected by the Federal Confidentiality of Alcohol and Drug Abuse Patient Records regulations: The Federal rules restrict any use of the information to criminally investigate or prosecute any alcohol or drug abuse patient.[facility] SystemIn the event this information is protected by the Federal Confidentiality of Alcohol and Drug Abuse Patient Records regulations: The Federal rules restrict any use of the information to criminally investigate or prosecute any alcohol or drug abuse patient.[facility] SystemIn the event this information is protected by [...] or prosecute any alcohol or drug abuse patient.[facility] SystemIn the event this information is protected by the Federal Confidentiality of Alcohol and Drug Abuse Patient Records regulations: The Federal rules restrict any use of the information to criminally investigate or prosecute any alcohol or drug abuse patient.[facility] SystemIn the event this information is protected by the Federal Confidentiality of Alcohol and Drug Abuse Patient Records regulations: The Federal rules restrict any use of the information to criminally investigate or prosecute any alcohol or drug abuse patient.[facility] SystemIn the event this information is protected by the Federal Confidentiality of Alcohol and Drug Abuse Patient Records regulations: The Federal rules restrict any use of the information to criminally investigate or prosecute any alcohol or drug abuse patient.[facility] SystemIn the event this information is protected by the Federal Confidentiality of Alcohol and Drug Abuse Patient Records regulations: The Federal rules restrict any use of the information to criminally investigate or prosecute any alcohol or drug abuse patient.[facility] SystemIn the event this information is protected by the Federal Confidentiality of Alcohol and Drug Abuse Patient Records regulations: The Federal rules restrict any use of the information to criminally investigate or prosecute any alcohol or drug abuse patient.[facility] SystemIn the event this information is protected by the Federal Confidentiality of Alcohol and Drug Abuse Patient Records regulations: The Federal rules restrict any use of the information to criminally investigate or prosecute any alcohol or drug abuse patient.[facility] SystemIn the event this information is protected by the Federal Confidentiality of Alcohol and Drug Abuse Patient Records regulations: The Federal rules restrict any use of the information to criminally investigate or prosecute any alcohol or drug abuse patient.[facility] SystemIn the event this information is protected by the Federal Confidentiality of Alcohol and Drug Abuse Patient Records regulations: The Federal rules restrict any use of the information to criminally investigate or prosecute any alcohol or drug abuse patient.[facility] SystemIn the event this information is protected by the Federal Confidentiality of Alcohol and Drug Abuse Patient Records regulations: The Federal rules restrict any use of the information to criminally investigate or prosecute any alcohol or drug abuse patient.[facility] SystemIn the event this information is protected by the Federal Confidentiality of Alcohol and Drug Abuse Patient Records regulations: The Federal rules restrict any use of the information to criminally investigate or prosecute any alcohol or drug abuse patient.[facility] SystemIn the event this information is protected by the Federal Confidentiality of Alcohol and Drug Abuse Patient Records regulations: The Federal rules restrict any use of the information to criminally investigate or prosecute any alcohol or drug abuse patient.[facility] SystemIn the event this information is protected by the Federal Confidentiality of Alcohol and Drug Abuse Patient Records regulations: The Federal rules restrict any use of the information to criminally investigate or prosecute any alcohol or drug abuse patient.[facility] SystemIn the event this information is protected by the Federal Confidentiality of Alcohol and Drug Abuse Patient Records regulations: The Federal rules restrict any use of the information to criminally investigate or prosecute any alcohol or drug abuse patient.[facility] SystemIn the event this information is protected by the Federal Confidentiality of Alcohol and Drug Abuse Patient Records regulations: The Federal rules restrict any use of the information to criminally investigate or prosecute any alcohol or drug abuse patient.[facility] SystemIn the event this information is protected by the Federal Confidentiality of Alcohol and Drug Abuse Patient Records regulations: The Federal rules restrict any use of the information to criminally investigate or prosecute any alcohol or drug abuse patient.[facility] SystemIn the event this information is protected by the Federal Confidentiality of Alcohol and Drug Abuse Patient Records regulations: The Federal rules restrict any use of the information to criminally investigate or prosecute any alcohol or drug abuse patient.[facility] SystemIn the event this information is protected by the Federal Confidentiality of Alcohol and Drug Abuse Patient Records regulations: The Federal rules restrict any use of the information to criminally investigate or prosecute any alcohol or drug abuse patient.[facility] SystemIn the event this information is protected by the Federal Confidentiality of Alcohol and Drug Abuse Patient Records regulations: The Federal rules restrict any use of the information to criminally investigate or prosecute any alcohol or drug abuse patient.[facility] SystemIn the event this information is protected by the Federal Confidentiality of Alcohol and Drug Abuse Patient Records regulations: The Federal rules restrict any use of the information to criminally investigate or prosecute any alcohol or drug abuse patient.[facility] SystemIn the event this information is protected by the Federal Confidentiality of Alcohol and Drug Abuse Patient Records regulations: The Federal rules restrict any use of the information to criminally investigate or prosecute any alcohol or drug abuse patient.[facility] SystemIn the event this information is protected by the Federal Confidentiality of Alcohol and Drug Abuse Patient Records regulations: The Federal rules restrict any use of the information to criminally investigate or prosecute any alcohol or drug abuse patient.[facility] SystemIn the event this information is protected by the Federal Confidentiality of Alcohol and Drug Abuse Patient Records regulations: The Federal rules restrict any use of the information to criminally investigate or prosecute any alcohol or drug abuse patient.[facility] SystemIn the event this information is protected by the Federal Confidentiality of Alcohol and Drug Abuse Patient Records regulations: The Federal rules restrict any use of the information to criminally investigate or prosecute any alcohol or drug abuse patient.[facility] SystemIn the event this information is protected by the Federal Confidentiality of Alcohol and Drug Abuse Patient Records regulations: The Federal rules restrict any use of the information to criminally investigate or prosecute any alcohol or drug abuse patient.[facility] SystemIn the event this information is protected by the Federal Confidentiality of Alcohol and Drug Abuse Patient Records regulations: The Federal rules restrict any use of the information to criminally investigate or prosecute any alcohol or drug abuse patient.[facility] SystemIn the event this information is protected by the Federal Confidentiality of Alcohol and Drug Abuse Patient Records regulations: The Federal rules restrict any use of the information to criminally investigate or prosecute any alcohol or drug abuse patient.[facility] SystemIn the event this information is protected by the Federal Confidentiality of Alcohol and Drug Abuse Patient Records regulations: The Federal rules restrict any use of the information to criminally investigate or prosecute any alcohol or drug abuse patient.[facility] SystemIn the event this information is protected by the Federal Confidentiality of Alcohol and Drug Abuse Patient Records regulations: The Federal rules restrict any use of the information to criminally investigate or prosecute any alcohol or drug abuse patient.[facility] SystemIn the event this information is protected by the Federal Confidentiality of Alcohol and Drug Abuse Patient Records regulations: The Federal rules restrict any use of the information to criminally investigate or prosecute any alcohol or drug abuse patient.[facility] SystemIn the event this information is protected by the Federal Confidentiality of Alcohol and Drug Abuse Patient Records regulations: The Federal rules restrict any use of the information to criminally investigate or prosecute any alcohol or drug abuse patient.[facility] SystemIn the event this information is protected by the Federal Confidentiality of Alcohol and Drug Abuse Patient Records regulations: The Federal rules restrict any use of the information to criminally investigate or prosecute any alcohol or drug abuse patient.[facility] SystemIn the event this information is protected by the Federal Confidentiality of Alcohol and Drug Abuse Patient Records regulations: The Federal rules restrict any use of the information to criminally investigate or prosecute any alcohol or drug abuse patient.[facility] SystemIn the event this information is protected by the Federal Confidentiality of Alcohol and Drug Abuse Patient Records regulations: The Federal rules restrict any use of the information to criminally investigate or prosecute any alcohol or drug abuse patient.[facility] SystemIn the event this information is protected by the Federal Confidentiality of Alcohol and Drug Abuse Patient Records regulations: The Federal rules restrict any use of the information to criminally investigate or prosecute any alcohol or drug abuse patient.[facility] SystemIn the event this information is protected by the Federal Confidentiality of Alcohol and Drug Abuse Patient Records regulations: The Federal rules restrict any use of the information to criminally investigate or prosecute any alcohol or drug abuse patient.[facility] SystemIn the event this information is protected by the Federal Confidentiality of Alcohol and Drug Abuse Patient Records regulations: The Federal rules restrict any use of the information to criminally investigate or prosecute any alcohol or drug abuse patient.[facility] SystemIn the event this information is protected by the Federal Confidentiality of Alcohol and Drug Abuse Patient Records regulations: The Federal rules restrict any use of the information to criminally investigate or prosecute any alcohol or drug abuse patient.[facility] SystemIn the event this information is protected by the Federal Confidentiality of Alcohol and Drug Abuse Patient Records regulations: The Federal rules restrict any use of the information to criminally investigate or prosecute any alcohol or drug abuse patient.[facility] SystemIn the event this information is protected by the Federal Confidentiality of Alcohol and Drug Abuse Patient Records regulations: The Federal rules restrict any use of the information to criminally investigate or prosecute any alcohol or drug abuse patient.[facility] SystemIn the event this information is protected by the Federal Confidentiality of Alcohol and Drug Abuse Patient Records regulations: The Federal rules restrict any use of the information to criminally investigate or prosecute any alcohol or drug abuse patient.[facility] SystemIn the event this information is protected by the Federal Confidentiality of Alcohol and Drug Abuse Patient Records regulations: The Federal rules restrict any use of the information to criminally investigate or prosecute any alcohol or drug abuse patient.[facility] SystemIn the event this information is protected by the Federal Confidentiality of Alcohol and Drug Abuse Patient Records regulations: The Federal rules restrict any use of the information to criminally investigate or prosecute any alcohol or drug abuse patient.[facility] SystemIn the event this information is protected by the Federal Confidentiality of Alcohol and Drug Abuse Patient Records regulations: The Federal rules restrict any use of the information to criminally investigate or prosecute any alcohol or drug abuse patient.[facility] SystemIn the event this information is protected by the Federal Confidentiality of Alcohol and Drug Abuse Patient Records regulations: The Federal rules restrict any use of the information to criminally investigate or prosecute any alcohol or drug abuse patient.[facility] SystemIn the event this information is protected by the Federal Confidentiality of Alcohol and Drug Abuse Patient Records regulations: The Federal rules restrict any use of the information to criminally investigate or prosecute any alcohol or drug abuse patient.[facility] SystemIn the event this information is protected by the Federal Confidentiality of Alcohol and Drug Abuse Patient Records regulations: The Federal rules restrict any use of the information to criminally investigate or prosecute any alcohol or drug abuse patient.[facility] SystemIn the event this information is protected by the Federal Confidentiality of Alcohol and Drug Abuse Patient Records regulations: The Federal rules restrict any use of the information to criminally investigate or prosecute any alcohol or drug abuse patient.[facility] SystemIn the event this information is protected by the Federal Confidentiality of Alcohol and Drug Abuse Patient Records regulations: The Federal rules restrict any use of the information to criminally investigate or prosecute any alcohol or drug abuse patient.[facility] Reason for Visit (unrecogniz ed section and [...] SAC SPI W/SKULL 2/3 Katherine Dover MD [address] [place] [address] [place] [address] Referral ID Status Reason Start Date Expiration Date V isits Requested Visits Authorized [id number] Closed Auto-Generate d Referral 04/30/2023 05/29/2024 1 1 Reason Comments Radio Main J1 Specialty Diagnoses / Procedures Referred By Contac t Referred To Contact XR IMAGING Diagnoses Spinal stenosis, lumbar region with neurogenic claudication Procedures XR LUMBAR MOTION 4V AP/LAT/ FLEX/EXT RADEX SPINE LUMBOSACRAL MINIMUM 4 VIEWS Alfonso Loyd, PA-C [address] [place] [id number] [place] [address] Referral ID Status Reason Start Date Expiration Date V isits Requested Visits Authorized [id number] Closed Auto-Generate d Referral 03/21/2023 04/19/2024 1 1 Specialty Diagnoses / Procedures Referred By Contac t Referred To Contact CT IMAGING Diagnoses Chronic low back pain, unspecified back pain laterality, unspecified whether sciatica present Procedures CT LUMBAR SPINE WO IVCON CT LUMBAR SPINE W/O CONTRAST MATERIAL Katherine Keith MD [address] [place] [address] Ct [id number] Referral ID Status Reason Start Date Expiration Date V isits Requested Visits Authorized [id number] Closed Auto-Generate d Referral 04/30/2023 05/29/2024 1 [...] LUMBOSACRAL 2/3 VIEWS Alfonso Loyd, PA-C [address] [place] [id number] X[id number] Referral ID Status Reason Start Date Expiration Date V isits Requested Visits Authorized [id number] Closed Auto-Generate d Referral 07/11/2023 08/09/2024 1 1 Reason Comments Post Op Reason Comments 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 - Other Reason Onset Date Comments Refill Request 09/21/2023 Reason Comments Established Patient Follow Up Specialty Diagnoses / Procedures Referred By Contac t Referred To Contact MR IMAGING Diagnoses Adverse effect of treatment, sequela Procedures MRI LUMBAR SPINE WO IVCON MRI SPINAL CANAL LUMBAR W/O CONTRAST MATERIAL Katherine Keith MD [address] [place] [id number] [facility] [place] [address] Referral ID Status Reason Start Date Expiration Date V isits Requested Visits Authorized [id number] Closed Auto-Generate d Referral 11/12/2023 12/11/2024 1 1 Specialty Diagnoses / Procedures Referred By Contac t Referred To Contact MR IMAGING Diagnoses Adverse effect of treatment, sequela Procedures MRI THORACIC SPINE WO IVCON MRI SPINAL CANAL THORACIC W/O CONTRAST MATRL Katherine Keith MD [address] [place] [address] [facility] [place] [address] Referral ID Status Reason Start Date Expiration Date V isits Requested Visits Authorized [id number] Closed Auto-Generate d Referral 11/12/2023 12/11/2024 1 1 Specialty Diagnoses / Procedures Referred By Contac t Referred To Contact CT IMAGING Diagnoses Acute low back pain, unspecified back pain laterality, unspecified whether sciatica present Procedures CT LUMBAR SPINE WO IVCON CT LUMBAR SPINE W/O CONTRAST MATERIAL Katherine Keith MD [id number] Imaging [id number] Referral ID Status Reason Start Date Expiration Date V isits Requested Visits Authorized [id number] Closed Auto-Generate d Referral 11/12/2023 12/11/2024 1 1 Reason Onset Date Comments [facility] 01/14/2024 Specialty Diagnoses / Procedures Referred By Contac t Referred To Contact [facility] Diagnoses Adverse effect of treatment, sequela Procedures [facility](NEURO/NI) NERVE CONDUCTION STUDIES 9-10 STUDIES Katherine Keith MD [address] [place] [id number] [facility] [place] [address] [place] [id number] Referral ID Status Reason Start Date Expiration Date V isits Requested Visits Authorized [id number] Closed Auto-Generate d Referral 01/13/2024 03/09/2024 1 1 Reason Comments Radiology MRI Specialty Diagnoses / Procedures Referred By Contac t Referred To Contact MR IMAGING Diagnoses Spinal stenosis of cervical region Procedures MRI CERVICAL SPINE WO IVCON MRI SPINAL CANAL CERVICAL W/O CONTRAST Alfonso Campos PA-C [address] [place] [address] [place] [address] Referral ID Status Reason Start Date Expiration Date V isits Requested Visits Authorized [id number] Closed Auto-Generate d Referral 02/21/2024 03/09/2024 1 [...] BE BASED ON THE PRIMARY CLINICAL RECORDS. [employer] provides no warranty or guarantee of the accuracy or completeness of information in this document.
[2024-11-05 14:47] LABS: Free T3 2.51 pg/mL (2.18-3.98); Thyroid Stimulating Hormone 0.378 uIU/mL (0.358-3.740)
== END 2024-11-05 13:36 | disposition home or self-care (01) ==
PROVIDERS: PCP Family Medicine; Visit Provider Family Medicine
DX: I10 Essential (primary) hypertension (principal)
CPT/HCPCS: 36415; 84436; 84443; 84481

== ENCOUNTER 2024-12-10 10:57 | Outpatient (RCR) | payer OTHER, SELFPAY | END 2025-01-26 07:02 | disposition home or self-care (01) | LOC: PT 10:57 | PROVIDERS: PCP Family Medicine; Visit Provider Family Medicine | DX: M75.40 Impingement syndrome of unspecified shoulder (principal); M54.16 Radiculopathy, lumbar region; R26.81 Unsteadiness on feet; M54.2 Cervicalgia; M25.512 Pain in left shoulder | CPT/HCPCS: 97110; 97140; 97161 ==

== ENCOUNTER 2024-12-23 09:43 | Outpatient (OUT) | payer OTHER, SELFPAY ==
--- OUTSIDE RECORDS SUMMARY | 2024-12-23 09:50 | XMS_ITS | CCD ---
Author Organization [facility] Care Team Providers Care Pre Billing Clinician Name Role Phone ESTER CAIN Referring Unavailable [...] Unavailable HOY ., DR NORMAN Consulting Unavailable MERLINY ., DR NORMAN Attending Unavailable MD Ester Cain Primary Care Provider [phone] MD Shae Guillory Attending Provider [phone] Ester Cain MD Primary Care Provider [phone] Hoy MD, Ester M Primary Care Provider [phone] PELLE, KATHERINE Referring Unavailable HOY, ESTER M Primary Care Unavailable PELLE, KATHERINE Referring Unavailable HOY, ESTER M Primary Care Unavailable BONUS, ALFONSO M Referring Unavailable HOY, ESTER M Primary Care Unavailable Katherine Sagar JERNIGAN Md Unavailable Unavailable MD Ester Cain M Primary Care Provider [phone] MD Camryn Agustin Attending Provider [phone] PELLE, KATHERINE Referring Unavailable HOY, ESTER M [...] Unavailable Ester Cain MD Primary Care Provider [phone] Ester Cain MD Primary Care Provider Mahamed Gray DPM Attending Provider Camryn Agustin Attending Unavailable Merissa, Ester M Primary Care Unavailable Camryn Agustin R Admitting Unavailable Merliny, Ester M Primary Care Unavailable Mahamed Gray. Admitting Unavailable Mahamed Gray Attending Unavailable Citlali Purcell Attending Provider MAHAMED GRAY Attending Unavailable MAHAMED GRAY Attending Unavailable TERESALCamryn Attending Unavailable NILLCamryn Attending Unavailable NILL, Camryn Rodriguez Attending Unavailable Allergies Allergy Classification Reported Allergen(s) Allergy Type Date of Onset Reaction(s) Facility Penicillins (antibiotic) (4 sources) Penicillins Drug Allergy 7 Rash [facility] Repository (10 sources) Penicillin; Translations: [penicillin] Drug Allergy Eruption of skin (disorder) General Surgery [place] (13 sources) Penicillins; Translations: [PENICILLINS] Drug allergy (disorder) 7 Rash [facility] Repository (20 sources) Penicillins Propensity to adverse reactions 7 Rash [facility] (20 sources) Methocarbamol; Translations: [methocarbamol] Drug Allergy 4 Patient reported problems (finding), Intolerance [facility] General Surgery [place] (15 sources) Penicillins Propensity to adverse reactions 7 Rash [facility] (1 source) Unable to Assess Drug allergy (disorder) 3 [facility] Repository (5 sources) Methocarbamol Drug Allergy 5 [facility] (5 sources) Penicillins Propensity to adverse reactions 5 Hives [facility] (1 source) No Known Medication Allergies; Translations: [No Known Medication Allergies] Propensity to adverse reactions (disorder) [facility] Repository Medications Current Medications Medication Drug [...] route every 4 hours. 0 08/22/2023 Active amLODIPine 5 mg oral tablet (1 source) Dihydropyridine Calcium Channel Janak Start: 11-15-2024 take 1 tablet by mouth once daily amLODIPine 5 mg Tab 5 mg = 1 tab(s), Oral, Daily, Refills(s) 0 Start Date: 11/15/24 Status: Ordered Repeat number: 1 aspirin 81 mg delayed release oral tablet [...] Refills(s) 0 Start Date: 11/11/23 Status: Ordered Repeat number: 1 Start: 10-04-2023 End: 11-03-2023 take 1 tablet [...] with meals. Celebrate Multivitamin (5 sources) Start: 023 take 1 tablet by mouth once daily Celebrate Multivitamin 1 tab(s), Oral, Daily, Prophylaxis Start Date: 04/22/22 Status: Ordered cyclobenzaprine hydrochloride 10 mg oral tablet (2 sources) Muscle Relaxant Start: 024 take 1 tablet by mouth three times daily as needed for muscle spasms cyclobenzaprine 10 mg Tab 10 mg = 1 tab(s), Oral, TID, PRN for spasm, Refills(s) 0 Start Date: 10/23/23 Status: Ordered diclofenac sodium 0.03 mg/mg topical gel (20 sources) Nonsteroidal Anti-inflammatory Drug Start: 025 diclofenac topical 3% topical gel 1 judy, Topical, BID, Refill(s) 0 Start Date: 11/15/24 Status: Ordered Repeat number: 1 Start: 09-12-2023 End: 11-11-2023 diclofenac (VOLTAREN ARTHRIT IS PAIN) 1 % topical gel Apply 2 g to affected area two times a day. 120 g 1 09/12/2023 11/11/2023 Active docusate sodium 50 mg / sennosides, nursing home 8.6 mg oral tablet (20 sources) Start: 06-08-2024 take 2 tablets by mouth every twelve hours as needed senna-docusate (SENNA-S) 8.6-50 mg per tablet Take 2 tablets by mouth two times a day as needed for constipation. 20 tablet 06/08/2024 Active Start: 08-22-2023 [facility] senna-docusate (SENNA-S) 8.6-50 mg per tablet Take 2 tablets by mouth two times a day. 20 tablet 08/22/2023 Suspended ferrous sulfate 325 mg delayed release oral tablet (5 sources) take 1 tablet by mouth in the [...] (20 sources) Antiarrhythmic, Amide Local Anesthetic Start: 11-16-19 lidocaine Top 5% film Patch 1 patch(es), Topical, Daily, Refill(s) 0 Start Date: 11/15/24 Status: Ordered Repeat number: 1 Start: 09-12-2023 End: 10-09-2023 lidocaine (LIDODERM) 5 % Naman e as instructed on package 10 Patch 1 [...] above: Take one(1) tablet d aily. Magnesium (5 sources) take 1 tablet by mouth once daily Magnesium 400 MG capsule Take 1 tablet by mouth Daily Active magnesium oxide 500 mg oral capsule (12 sources) Start: 08-06-2023 take 1 capsule by mouth twice daily Magnesium Oxide 500 mg cap Take 1 capsule by mouth two times a day. 0 08/06/2023 Active Start: 09-26-2020 take 1 tablet by raya th once daily magnesium oxide 400 mg Tab 400 mg = 1 tab(s), Oral, Daily, Refills(s) 0, Prophylaxis Start Date: 09/26/20 Status: Ordered Repeat number: 1 methylPREDNISolone (1 source) Corticosteroid Start: 11-13-2023 End: [...] oral tablet (20 sources) Opioid Agonist Start: 11-15-2024 oxyCODONE 5 mg Tab as directed, Refills(s) 0 Start Date: 11/15/24 Status: Ordered Repeat number: 1 Start: 10-06-2024 Oxycodone 5 mg tablet Active [...] 08/22/2023 08/29/2023 Discontinued take 1 capsule [facility] every four hours as needed for pain [...] Status: Ordered tadalafil 5 mg oral tablet (6 sources) Phosphodiesterase 5 Inhibitor Start: 11-15-2024 take 1 tablet by mouth once daily as needed tadalafil 5 mg oral tablet 5 mg = 1 tab(s), Oral, Daily, PRN erectile dysfunction, Refills(s) 0 Start Date: 11/15/24 Status: Ordered Repeat number: 1 tiZANidine 4 mg oral tablet (20 sources) [...] Start: 09-10-2023 take 1 tablet by raya every eight hours in the evening tiZANidine (ZANAFLEX) 2 mg tablet Take 3 tablets by mouth every 8 hours. 90 tablet 09/10/2023 3:56 PM EDT 09/10/2023 Suspended Start: 04-03-2022 take 2 tablets by mo uth at bedtime tiZANidine 4 mg Tab 8 mg = 2 tab(s), Oral, Bedtime, Refills(s) 0, Insomnia Start Date: 04/03/22 Status: Ordered Repeat number: 1 tiZANidine (George flex) 4 MG capsule Take [...] 20 mg by mouth once daily. Suspended sulfamethoxazole 800 mg / trimethoprim 160 mg oral tablet (2 sources) Dihydrofolate Reductase Inhibitor Antibacterial, Sulfonamide Antimicrobial Start: 09-13-2024 End: 09-22-2024 take 1 tablet by mouth every twelve hours sulfamethoxazole-tri methoprim (Bactrim DS) 800-160 MG per tablet Take 1 tablet by mouth every 12 (twelve) hours 09/13/2024 09/22/2024 Problems Active Problems Problem Classification Problem Date Documented Date Episodic/Chronic Abdominal hernia (19 sources) Hernia of anterior abdominal wall; Translations: [Ventral hernia without obstruction or gangrene] Onset: 03-18-2022 Episodic Abdominal pain (14 sources) Epigastric pain; Translations: [Epigastric pain] Onset: 03-16-2022 Episodic Acquired foot deformities (20 sources) Right foot drop; Translations: [Foot drop, right foot] Onset: 08-20-2023 08-20-2023 Episodic Cardiac dysrhythmias (20 sources) Supraventricular tachycardia; Translations: [Ventricular premature beats] Onset: 08-06-2023 09-26-2020 Chronic Chronic ulcer of skin (6 sources) Neuropathic ulcer; Translations: [Non-pressure chronic ulcer of skin of other sites limited to breakdown of skin] 09-20-2024 Chronic Deficiency and other anemia (2 sources) Iron deficiency anemia; Translations: [Iron deficiency anemia, unspecified] 07-11-2023 Episodic Deficiency and other anemia (2 sources) Iron deficiency anemia, unspecified; Translations: [Iron deficiency anemia, unspecified iron deficiency anemia type] Onset: 08-06-2023 Episodic Disorders of lipid metabolism (9 sources) Pure hypercholesterolemia, unspecified; Translations: [Pure hypercholesterolemia] Onset: 03-06-2022 Chronic Diverticulosis and diverticulitis (14 sources) Diverticular disease; Translations: [Diverticula of intestine] Onset: 12-16-2023 09-26-2020 Chronic Essential hypertension (20 sources) Hypertensive disorder; Translations: [Essential hypertension] Onset: 08-06-2023 05-27-2019 Chronic Genitourinary symptoms and ill-defined conditions (5 sources) Blood in urine; Translations: [Gross hematuria] Onset: 12-05-2022 Episodic Hemorrhoids (9 sources) Internal hemorrhoids 09-26-2020 Episodic Hyperplasia of prostate (9 sources) Benign prostatic hypertrophy with outflow obstruction; Translations: [Benign prostatic hyperplasia with lower urinary tract symptoms] Onset: 09-04-2022 Chronic Malaise and fatigue (1 source) Asthenia; Translations: [Weakness] 01-14-2024 Episodic Neoplasms of unspecified nature or uncertain behavior (20 sources) Neoplasm of uncertain behavior of skin; Translations: [Neoplasm of uncertain behavior of skin] Onset: 08-05-2008 05-27-2019 Episodic Other acquired deformities (20 sources) Other [...] 06-16-2024 Episodic Other and unspecified benign neoplasm (9 sources) Dermal cellular nevus 06-15-2019 Episodic Other and unspecified benign neoplasm (1 source) Benign neoplasm of colon; Translations: [Benign neoplasm of colon, unspecified] Onset: 12-16-2023 Episodic Other and unspecified benign neoplasm (2 sources) Adenomatous polyp of colon 12-16-2023 Episodic Other and unspecified benign neoplasm (2 sources) History of polyp of colon; Translations: [Personal history of adenomatous and serrated colon polyps] Onset: 11-23-2024 Episodic Other circulatory disease (6 sources) Absent pulse; Translations: [Other specified symptoms and signs involving the circulatory and respiratory systems] 09-20-2024 Episodic Other connective tissue disease (20 sources) [...] disorders] 01-14-2024 Chronic Other nervous system disorders (4 sources) Idiopathic peripheral neuropathy; Translations: [Hereditary and idiopathic neuropathy, unspecified] 12-10-2024 Chronic Other nervous system disorders (20 sources) [...] 08-20-2023 Episodic Other non-epithelial cancer of skin (9 sources) 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 05-26-2019 Episodic Other nutritional; endocrine; and metabolic disorders (9 sources) Overweight in adulthood with body mass index of 25 or more but less than 30 04-03-2022 Episodic Other nutritional; endocrine; and metabolic disorders (3 sources) Overweight 11-11-2023 Episodic Other screening for suspected conditions (not mental disorders or infectious disease) (20 sources) Abnormal results of liver function studies; Translations: [Encounter for screening for malignant neoplasm of prostate] Onset: 01-01-2022 Episodic Other skin disorders (9 sources) Inflamed seborrheic keratosis 09-28-2020 Episodic Other skin disorders (9 sources) Senile hyperkeratosis 05-26-2019 Episodic Other skin disorders (9 sources) Skin tag 09-28-2020 Episodic Peripheral and visceral atherosclerosis (5 sources) Peripheral vascular disease, unspecified; Translations: [Peripheral vascular disease, unspecified] Onset: 09-27-2024 09-17-2024 Chronic Residual codes; unclassified (4 sources) H/O [...] Translations: [Cervical spondylosis] Onset: 09-07-2023 09-26-2020 Chronic Spondylosis; intervertebral disc disorders; other back problems (20 sources) Lumbar radiculopathy; Translations: [Radiculopathy, cervical region] Onset: 01-18-2022 09-26-2020 Episodic Unclassified (9 sources) Patient encounter status 09-28-2020 Unclassified (1 source) Chronic low back pain, unspecified back pain laterality, unspecified whether sciatica present; Translations: [Chronic low back pain, unspecified back pain laterality, unspecified whether sciatica present] Onset: 05-04-2023 Varicose veins of lower extremity (5 sources) Varicose veins of lower extremity 09-11-2022 Episodic Past or Other Problems Problem Classification Problem Date Documented Date Episodic/Chronic Allergic reactions (20 sources) Allergy to penicillin; Translations: [Allergy status to penicillin] Onset: 08-06-2023 08-06-2023 Episodic Complications of surgical procedures or medical care (5 sources) Complication of procedure; Translations: [Complication of surgical and medical care, unspecified, sequela] Onset: 01-13-2024 11-12-2023 Episodic Other and unspecified benign neoplasm (20 [...] Translations: [Localized edema] Onset: 09-08-2023 09-08-2023 Episodic Unclassified (2 sources) History of cervical spine fusion 06-29-2024 Unclassified (2 sources) PAD (peripheral artery disease) 09-20-2024 Results Test Name Value Interpretation Reference Range Facility Ambulatory Visit Summaryon 0 11-23-2024 Ambulatory Visit Summary Ambulatory Visit Summary BRADEN RODRIGUEZ :1955 Visit Date:11/23/2024 Ambulatory Visit Instructions Your Diagnosis Personal history of adenomatous and serrated colon polyps Your Care Team Attending Physician - VAMSI JERNIGAN, Camryn Rodriguez Primary Care Physician - Ester Cain MD This Is Your Medications List Contact prescribing physician if questions or concerns amlodipine (amLODIPine 5 mg Tab) carvedilol (carvedilol 25 mg Tab) diclofenac topical (diclofenac topical 3% topical gel) lidocaine topical (lidocaine Top 5% film Patch) magnesium oxide (magnesium oxide 400 mg Tab) oxycodone (oxyCODONE 5 mg Tab) tadalafil (tadalafil 5 mg oral tablet) tizanidine (tiZANidine 4 mg Tab) Procedures Performed [...] (04/29/2022), Colonoscopy (10/2012), Cholecystectomy (03/10/1993), Cataract extraction, Cervical laminectomy, Excision of lesion of skin, Laminectomy, Lumbar spinal fusion, Revision of fusion of lumbar spine. Discharge Vitals Heart Rate (Peripheral) 76 Respiratory Rate 16 Blood Pressure 118/76 Height 182.8 cm Height 72 in Weight 95.7 kg Weight 210.982 lb BMI 28.64 Medications What How Much When Instructions Unchanged amlodipine (amLODIPine 5 mg Tab) 1 Tablets By Mouth Every day Contact prescribing physician if questions or concerns Unchanged carvedilol (carvedilol 25 mg Tab) 1 Tablets By Mouth Every day Contact prescribing physician if questions or concerns Unchanged diclofenac topical (diclofenac topical 3% topical gel) 1 Application Topical 2 times a day Contact prescribing physician if questions or concerns Unchanged lidocaine topical (lidocaine Top 5% film Patch) 1 Patches Topical Every day Contact prescribing physician if questions or concerns Unchanged magnesium oxide (magnesium oxide 400 mg Tab) 1 Tablets By Mouth Every day Contact prescribing physician if questions or concerns Unchanged oxycodone (oxyCODONE 5 mg Tab) as directed Contact prescribing physician if questions or concerns Unchanged tadalafil (tadalafil 5 mg oral tablet) 1 Tablets By Mouth Every day as needed for erectile dysfunction Contact prescribing physician if questions or concerns Unchanged tizanidine (tiZANidine 4 mg Tab) 2 Tablets By Mouth At bedtime Contact prescribing physician if questions or concerns Allergies Robaxin (Patient reported problems) penicillin (Rash) Problems Ongoing - Any problem that you are currently receiving treatment for. BMI 28.0-28.9,adult BPH with obstruction/lower urinary tract symptoms Cervical radiculopathy Diverticulosis Elevated PSA Gross hematuria Hypertension Incarcerated epigastric hernia Internal hemorrhoid Intradermal nevus Lumbar radiculopathy Lumbar spondylosis Overweight Personal history of adenomatous and serrated colon polyps Pure hypercholesterolemia Screening for malignant neoplasm of [...] you for choosing us for your care. Patient Portal You may access all of your results and other medical record information on our secure patient portal. If you are not signed up for this yet, please contact [employer] at [phone] to get signed up today. Language Information Language assistance services are available as needed. Paramjit [facility] Ambulatory Visit Summary Ambulatory Visit Summary BRADEN RODRIGUEZ :1955 Visit Date:11/23/2024 Ambulatory Visit Instructions Your Care Team Attending Physician - VAMSI JERNIGAN, Camryn Rodriguez Primary Care Physician - Merissa JERNIGAN, Ester This Is Your Medications List Contact prescribing physician if questions or concerns amlodipine (amLODIPine 5 mg Tab) carvedilol (carvedilol 25 mg Tab) diclofenac topical (diclofenac topical 3% topical gel) lidocaine topical (lidocaine Top 5% film Patch) magnesium oxide (magnesium oxide 400 mg Tab) oxycodone (oxyCODONE 5 mg Tab) tadalafil (tadalafil 5 mg oral tablet) tizanidine (tiZANidine 4 mg Tab) Procedures Performed [...] (04/29/2022), Colonoscopy (10/2012), Cholecystectomy (03/10/1993), Cataract extraction, Cervical laminectomy, Excision of lesion of skin, Laminectomy, Lumbar spinal fusion, Revision of fusion of lumbar spine. Discharge Vitals Heart Rate (Peripheral) 76 Respiratory Rate 16 Blood Pressure 118/76 Height 182.8 cm Height 72 in Weight 95.7 kg Weight 210.982 lb BMI 28.64 Medications What How Much When Instructions Unchanged amlodipine (amLODIPine 5 mg Tab) 1 Tablets By Mouth Every day Contact prescribing physician if questions or concerns Unchanged carvedilol (carvedilol 25 mg Tab) 1 Tablets By Mouth Every day Contact prescribing physician if questions or concerns Unchanged diclofenac topical (diclofenac topical 3% topical gel) 1 Application Topical 2 times a day Contact prescribing physician if questions or concerns Unchanged lidocaine topical (lidocaine Top 5% film Patch) 1 Patches Topical Every day Contact prescribing physician if questions or concerns Unchanged magnesium oxide (magnesium oxide 400 mg Tab) 1 Tablets By Mouth Every day Contact prescribing physician if questions or concerns Unchanged oxycodone (oxyCODONE 5 mg Tab) as directed Contact prescribing physician if questions or concerns Unchanged tadalafil (tadalafil 5 mg oral tablet) 1 Tablets By Mouth Every day as needed for erectile dysfunction Contact prescribing physician if questions or concerns Unchanged tizanidine (tiZANidine 4 mg Tab) 2 Tablets By Mouth At bedtime Contact prescribing physician if questions or concerns Allergies Robaxin (Patient reported problems) penicillin (Rash) [...] you for choosing us for your care. Patient Portal You may access all of your results and other medical record information on our secure patient portal. If you are not signed up for this yet, please contact [employer] at [phone] to get signed up today. Language Information Language assistance services are available as needed. Paramjit [facility] Provider Letteron 11-04-2024 Provider Letter Provider Letter November 04, 2024 BRADEN RODRIGUEZ [address] [place] [id number] : 1955 Dear Braden , We have been trying to reach you with no success. This letter is a reminder you are due for a colonoscopy in November due to high risk polyp that was found during colonoscopy completed last year. Please call the office to schedule an appointment to discuss. Thank you for your prompt attention to this matter. Sincerely, Dr. Camryn Agustin MD General Surgery [phone] [facility] Reminderson 11-04-2024 Reminders Reminders From: Caroline Bird LPN To: [...] at later time. Mailbox is full. Will mail letter. Normal [facility] US arterial pvr rest Coy US arterial pvr rest LE [facility] [place] [address] Ultrasound Report Signed Patient: Braden Rodriguez MR#: [id number] : 1955 Acct:[id number] Age/Sex: 69 / M ADM Date: 09/27/24 Loc: Room: Type: [facility] Attending Dr: Mahamed Gray DPM, Ordering Provider: Mahamed Gray DPM, MS, LENNIES Date of Service: 09/27/24 US/US arterial pvr rest LE: L96.491, i73.9, R09.89 Copies to: Mahamed Gray DPM, MS, CWS LOWER EXTREMITY SEGMENTAL ARTERIAL [...] Zayas MD,FACS,FSVS 09/28/2024 7:56 AM Dictation Location: [place] [address] Tech: Shania Aguilar Transcribed By: ERYN 09/28/24 0756 Dictated By: Xander Zayas MD 09/28/24 075 Signed By: 09/28/24 075 Normal [facility] CBC W Auto Differential pane l (Bld)on 09-18-2024 Basophils (Bld) [#/Vol] 0.1 10*3/uL [facility] Healthcare Basophils/100 WBC (Bld) 1 % Not Estab. [facility] Eosinophils (Bld) [#/Vol] 0.2 10*3/uL [facility] Eosinophils/100 WBC (Bld) 3 % Not Estab. [facility] Erythrocyte distribution width (RBC) [Ratio] 13.2 % 11.6 - 15.4 % [facility] Hematocrit (Bld) [Volume fraction] 39 % 37.5 - 51.0 % [facility] Hemoglobin (Bld) [Mass/Vol] 12.8 g/dL Low 13.0 - 17.7 g/dL [facility] Immature granulocytes (Bld) [#/Vol] 0.1 10*3/uL [facility] Immature granulocytes/100 WBC (Bld) 1 % Not Estab. [facility] Lymphocytes (Bld) [#/Vol] 2.9 10*3/uL [facility] Lymphocytes/100 WBC (Bld) 31 % Not Estab. [facility] MCH (RBC) [Entitic mass] 31.1 pg 26.6 - 33.0 pg [facility] MCHC (RBC) [Mass/Vol] 32.8 g/dL 31.5 - 35.7 g/dL [facility] MCV (RBC) [Entitic vol] 95 fL 79 - 97 fL [facility] Monocytes (Bld) [#/Vol] 1.1 10*3/uL High [facility] Monocytes/100 WBC (Bld) 12 % Not Estab. [facility] Neutrophils (Bld) [#/Vol] 4.8 10*3/uL [facility] Neutrophils/100 WBC (Bld) 52 % Not Estab. [facility] Platelets (Bld) [#/Vol] 235 10*3/uL [facility] RBC (Bld) [#/Vol] 4.11 10*6/uL Low [facility] WBC (Bld) [#/Vol] 9.2 10*3/uL [facility] Laboratory - Chemistry and C hemistry - challengeon 09-18-2024 Albumin [Mass/Vol] 4.2 g/dL 3.9 - 4.9 g/dL [facility] ALP [Catalytic activity/Vol] 67 U/L [facility] ALT [Catalytic activity/Vol] 22 U/L [facility] AST [Catalytic activity/Vol] 31 U/L [facility] Bilirubin [Mass/Vol] 0.5 mg/dL 0.0 - 1 .2 mg/dL [facility] Calcium [Mass/Vol] 9.3 mg/dL 8.6 - 10. 2 mg/dL [facility] Chloride [Moles/Vol] 101 mmol/L 96 - 10 6 mmol/L [facility] CO2 [Moles/Vol] 24 mmol/L 20 - 29 mmol/L [facility] Creatinine [Mass/Vol] 1.23 mg/dL 0.76 - 1.27 mg/dL [facility] CRP [Mass/Vol] 9 mg/L 0 - 10 mg/L [facility] GFR/1.73 sq M.predicted among non-blacks MDRD (S/P/Bld) [Vol rate/Area] 64 mL/min/{1.73_m2} 59 - PINF mL/min/1.73 [facility] Globulin (S) [Mass/Vol] 1.6 g/dL 1.5 - 4.5 g/dL [facility] Glucose [Mass/Vol] 89 mg/dL 70 - 99 mg/dL [facility] Potassium [Moles/Vol] 5.5 mmol/L High 3.5 - 5.2 mmol/L [facility] Prealbumin [Mass/Vol] 26 mg/dL 10 - 3 6 mg/dL [facility] Protein [Mass/Vol] 5.8 g/dL Low 6.0 - 8.5 g/dL [facility] Sodium [Moles/Vol] 139 mmol/L 134 - 144 mmol/L [facility] Urea nitrogen [Mass/Vol] 23 mg/dL 8 - 27 mg/dL [facility] Urea nitrogen/Creatinine [Mass ratio] 19 mg/mg 10 - 24 [facility] Laboratory - Hematology and Cell countson 09-18-2024 ESR (Bld) [Velocity] 5 mm/h [facility] No Panel Informationon 09-18 Interpretation and review of laboratory results Abnormal [facility] Performed at: 01 - [address] [id number] Industrial Equipment Mechanic: Scout Ludwig PhD, Phone: [phone] [facility]OV[facility] 06-16-2024 CNOV Normal [facility] CNPNon 06-11-2024 CNPN Normal [facility] 25(OH)D3 SerPl-mCncon 2024 25-hydroxyvitamin D3 [Mass/Vol] 42.5 ng/mL Normal 31.0-80.0 [facility] Comment on above: Order Comment: Speci men Type: BLOOD SPECIMENOrdering Facility: [facility] Address: [address] [place] [address] Result Comment: Clas sification of 25 OH Vitamin D status:Deficiency/Insufficiency: < or = 30 ng/ml.Sufficiency/Optimal Levels: 31-80 ng/mLToxicity: > 100 ng/mL.Test performed by chemiluminescent immunoassay. Performed By: #### 1 989-3 ####[facility] LABCLIA [id number] [place] [address] [place] CBC panel Auto (Bld)on 06-08 Erythrocyte distribution width (RBC) [Ratio] 12.7 % Normal 11.5-15.0 [facility] Comment on above: Order Comment: Speci men Type: BLOOD SPECIMENOrdering Facility: [facility] Address: [address] [place] [address] Performed By: #### 5 8410-2 ####[facility] LABIA [id number] [place] [address] [place] Hematocrit (Bld) [Volume fraction] 40.4 % Normal 39.0-51.0 [facility] Comment on above: Order Comment: Speci men Type: BLOOD SPECIMENOrdering Facility: [facility] Address: [address] [place] [address] Performed By: #### 5 8410-2 ####[facility] LABIA [id number] [place] [address] [place] Hemoglobin (Bld) [Mass/Vol] 13.2 g/dL Normal 13.0-17.0 [facility] Comment on above: Order Comment: Speci men Type: BLOOD SPECIMENOrdering Facility: [facility] Address: [address] [place] [address] Performed By: #### 5 8410-2 ####[facility] LABIA [id number] [place] [address] [place] MCH (RBC) [Entitic mass] 30.9 pg Normal 26.0-34.0 [facility] Comment on above: Order Comment: Speci men Type: BLOOD SPECIMENOrdering Facility: [facility] Address: [address] [place] [address] Performed By: #### 5 8410-2 ####[facility] LABIA [id number] [place] [address] [place] MCHC (RBC) [Mass/Vol] 32.7 g/dL Normal 30.5-36.0 [facility] Comment on above: Order Comment: Speci men Type: BLOOD SPECIMENOrdering Facility: [facility] Address: [address] [place] [address] Performed By: #### 5 8410-2 ####[facility] LABIA [id number] [place] [address] [place] MCV (RBC) [Entitic vol] 94.6 fL Normal 80.0-100.0 [facility] Comment on above: Order Comment: Speci men Type: BLOOD SPECIMENOrdering Facility: [facility] Address: [address] [place] [address] Performed By: #### 5 8410-2 ####[facility] LABIA [id number] [place] [address] [place] Nucleated RBC (Bld) [#/Vol] 10*3/uL Normal <0.01 [facility] Comment on above: Order Comment: Speci men Type: BLOOD SPECIMENOrdering Facility: [facility] Address: [address] [place] [address] Performed By: #### 5 8410-2 ####[facility] LABIA [id number] [place] [address] [place] Platelet mean volume (Bld) [Entitic vol] 10.7 fL Normal 9.0-12.7 [facility] Comment on above: Order Comment: Speci men Type: BLOOD SPECIMENOrdering Facility: [facility] Address: [address] [place] [address] Performed By: #### 5 8410-2 ####[facility] LABIA [id number] [place] [address] [place] Platelets (Bld) [#/Vol] 277 10*3/uL Normal 150-400 [facility] Comment on above: Order Comment: Speci men Type: BLOOD SPECIMENOrdering Facility: [facility] Address: [address] [place] [address] Performed By: #### 5 8410-2 ####[facility] LABIA [id number] [place] [address] [place] RBC (Bld) [#/Vol] 4.27 10*6/uL Normal 4.20-6.00 [facility] Comment on above: Order Comment: Speci men Type: BLOOD SPECIMENOrdering Facility: [facility] Address: [address] [place] [address] Performed By: #### 5 8410-2 ####[facility] LABCLIA [id number] [address], [facility] [place] WBC (Bld) [#/Vol] 8.97 10*3/uL Normal 3.70-11.00 [facility] Comment on above: Order Comment: Speci men Type: BLOOD SPECIMENOrdering Facility: [facility] Address: [address] [place] [address] Performed By: #### 5 8410-2 ####[facility] LABCLIA [id number] [place] [address] [place] CNDSon 06-08-2024 CNDS Normal [facility] Comprehensive metabolic 2000 panelon 06-08-2024 Albumin [Mass/Vol] 3.5 g/dL Low 3.9-4.9 [facility] Comment on above: Order Comment: Speci men Type: BLOOD SPECIMENOrdering Facility: [facility] Address: [address] [place] [address] Performed By: #### 1 9123-9, 89267-7, HSTNT, 2777-1 ####[facility] LABCLIA [id number] [address], [facility] [place] ALP [Catalytic activity/Vol] 80 U/L Normal 38-113 [facility] Comment on above: Order Comment: Speci men Type: BLOOD SPECIMENOrdering Facility: [facility] Address: [address] [place] [address] Performed By: #### 1 9123-9, 55038-6, HSTNT, 2777-1 ####[facility] LABCLIA [id number] [address] [address] [place] ALT [Catalytic activity/Vol] 10 U/L Normal 10-54 [facility] Comment on above: Order Comment: Speci men Type: BLOOD SPECIMENOrdering Facility: [facility] Address: [address] [place] [address] Performed By: #### 1 9123-9, 97553-7, HSTNT, 2777-1 ####[facility] LABCLIA [id number] [place] [address] [place] Anion gap [Moles/Vol] 13 mmol/L Normal 8-15 [facility] Comment on above: Order Comment: Speci men Type: BLOOD SPECIMENOrdering Facility: [facility] Address: [address] [place] [address] Performed By: #### 1 9123-9, 47464-5, HSTNT, 2777-1 ####[facility] LABCLIA [id number] [place] [address] [place] AST [Catalytic activity/Vol] 25 U/L Normal 14-40 [facility] Comment on above: Order Comment: Speci men Type: BLOOD SPECIMENOrdering Facility: [facility] Address: [address] [place] [address] Result Comment: Resu lts may be falsely increased due to interference from hemolysis. Suggest reorder as clinically indicated. Performed By: #### 1 9123-9, 37128-5, HSTNT, 2777-1 ####[facility] LABCLIA [id number] [place] [address] [place] Bilirubin [Mass/Vol] 0.8 mg/dL Normal 0.2-1.3 [facility] Comment on above: Order Comment: Speci men Type: BLOOD SPECIMENOrdering Facility: [facility] Address: [address] [place] [address] Performed By: #### 1 9123-9, 18854-6, HSTNT, 2777-1 ####[facility] LABCLIA [id number] [address] [address] [place] Calcium [Mass/Vol] 9.5 mg/dL Normal 8.5-10.2 [facility] Comment on above: Order Comment: Speci men Type: BLOOD SPECIMENOrdering Facility: [facility] Address: [address] [place] [address] Performed By: #### 1 9123-9, 45713-2, HSTNT, 277-1 ####[facility] LABCLIA [id number] [address] [address] [place] Chloride [Moles/Vol] 106 mmol/L Normal 98-107 [facility] Comment on above: Order Comment: Speci men Type: BLOOD SPECIMENOrdering Facility: [facility] Address: [address] [place] [address] Performed By: #### 1 9123-9, 10230-9, HSTNT, 277-1 ####[facility] LABCLIA [id number] [place] [address] [place] CO2 [Moles/Vol] 24 mmol/L Normal 22-30 [facility] Comment on above: Order Comment: Speci men Type: BLOOD SPECIMENOrdering Facility: [facility] Address: [address] [place] [address] Performed By: #### 1 9123-9, 27110-4, HSTNT, 277-1 ####[facility] LABCLIA [id number] [address] [address] [place] Creatinine [Mass/Vol] 0.76 mg/dL Normal 0.73-1.22 [facility] Comment on above: Order Comment: Speci men Type: BLOOD SPECIMENOrdering Facility: [facility] Address: [address] [place] [address] Performed By: #### 1 9123-9, 02745-5, HSTNT, 2777-1 ####[facility] LABCLIA [id number] [place] [address] [place] Creatinine and Glomerular filtration rate.predicted panel (S/P/Bld) 99 mL/min/1.73m??? Normal >=60 [facility] Comment on above: Order Comment: Roberto Carlos lion Type: BLOOD SPECIMENOrdering Facility: [facility] Address: [address] [place] [address] Result Comment: Yesica mated Glomerular Filtration Rate [...] actual GFR. Performed By: #### 1 9123-9, 31245-9, HSTNT, 2777-1 ####[facility] [id number] [place] [address] [place] Glucose [Mass/Vol] 90 mg/dL Normal 74-99 [facility] Comment on above: Order Comment: Roberto Carlos lion Type: BLOOD SPECIMENOrdering Facility: [facility] Address: [address] [place] [address] Result Comment: The [place] Diabetes Association (ADA) provides guidance for cutoff [...] Standards of Medical Care in Diabetes 2016, [place] [employer]. Diabetes Care. 2016.39(Suppl 1). Performed By: #### 1 9123-9, 84774-6, HSTNT, 2777-1 ####[facility] LABCLIA [id number] [address] [address] [place] Potassium [Moles/Vol] 4.2 mmol/L Normal 3.7-5.1 [facility] Comment on above: Order Comment: Speci men Type: BLOOD SPECIMENOrdering Facility: [facility] Address: [address] [place] [address] Performed By: #### 1 9123-9, 86169-4, HSTNT, 277-1 ####[facility] LABCLIA [id number] [place] [address] [place] Protein [Mass/Vol] 6.1 g/dL Low 6.3-8.0 [facility] Comment on above: Order Comment: Speci men Type: BLOOD SPECIMENOrdering Facility: [facility] Address: [address] [place] [address] Performed By: #### 1 23-9, 95055-5, HSTNT, 2776-1 ####[facility] LABCLIA [id number] [place] [address] [place] Sodium [Moles/Vol] 143 mmol/L Normal 136-144 [facility] Comment on above: Order Comment: Speci men Type: BLOOD SPECIMENOrdering Facility: [facility] Address: [address] [place] [address] Performed By: #### 1 23-9, 29816-1, HSTNT, 277-1 ####[facility] LABCLIA [id number] [place] [address] [place] Urea nitrogen [Mass/Vol] 16 mg/dL Normal 9-24 [facility] Comment on above: Order Comment: Speci men Type: BLOOD SPECIMENOrdering Facility: [facility] Address: [address] [place] [address] Performed By: #### 1 9123-9, 24434-3, HSTNT, 2777-1 ####[facility] LABCLIA [id number] [place] [address] [place] ECG COMPLETEon 06-08-2024 ECG COMPLETE Normal [facility] HIGH SENSITIVITY TROPONIN To n 06-08-2024 Troponin T.cardiac High sensitivity method [Mass/Vol] 28 ng/L High <12 [facility] Comment on above: Order Comment: Speci men Type: BLOOD SPECIMENOrdering Facility: [facility] Address: [address] [place] [address] Performed By: #### 1 9123-9, 54365-4, HSTNT, 2777-1 ####[facility] LABIA [id number] [place] [address] [place] Magnesium SerPl-mCncon 06-08 Magnesium [Mass/Vol] 2.0 mg/dL Normal 1.7-2.3 [facility] Comment on above: Order Comment: Speci men Type: BLOOD SPECIMENOrdering Facility: [facility] Address: [address] [place] [address] Performed By: #### 1 9123-9, 68883-1, HSTNT, 2777-1 ####[facility] LABIA [id number] [place] [address] [place] Phosphate SerPl-mCncon 06-08 Phosphate [Mass/Vol] 3.3 mg/dL Normal 2.7-4.8 [facility] Comment on above: Order Comment: Speci men Type: BLOOD SPECIMENOrdering Facility: [facility] Address: [address] [place] [address] Performed By: #### 1 9123-9, 65665-6, HSTNT, 2777-1 ####[facility] LABIA [id number] [place] [address] [place] CASE MANAGEMon 06-07-2024 CASE MANAGEM Normal [facility] CBC W Auto Differential pane l (Bld)on 06-07-2024 Basophils (Bld) [#/Vol] 0.06 10*3/uL Normal <0.11 [facility] Comment on above: Order Comment: Speci men Type: BLOOD SPECIMENOrdering Facility: [facility] Address: [address] [place] [address] Performed By: #### 5 7021-8 ####[facility] LABCLIA [id number] [place] [address] [place] Basophils/100 WBC (Bld) 0.6 % Normal [facility] Comment on above: Order Comment: Speci men Type: BLOOD SPECIMENOrdering Facility: [facility] Address: [address] [place] [address] Performed By: #### 5 7021-8 ####[facility] LABCLIA [id number] [address], [place] [address] [place] Differential cell count method Nom (Bld) Auto Normal [facility] Comment on above: Order Comment: Speci men Type: BLOOD SPECIMENOrdering Facility: [facility] Address: [address] [place] [address] Performed By: #### 5 7021-8 ####[facility] LABCLIA [id number] [place] [address] [place] Eosinophils (Bld) [#/Vol] 0.32 10*3/uL Normal <0.46 [facility] Comment on above: Order Comment: Speci men Type: BLOOD SPECIMENOrdering Facility: [facility] Address: [address] [place] [address] Performed By: #### 5 7021-8 ####[facility] LABCLIA [id number] [place] [address] [place] Eosinophils/100 WBC (Bld) 3.2 % Normal [facility] Comment on above: Order Comment: Speci men Type: BLOOD SPECIMENOrdering Facility: [facility] Address: [address] [place] [address] Performed By: #### 5 7021-8 ####[facility] LABCLIA [id number] [place] [address] [place] Erythrocyte distribution width (RBC) [Ratio] 13.0 % Normal 11.5-15.0 [facility] Comment on above: Order Comment: Speci men Type: BLOOD SPECIMENOrdering Facility: [facility] Address: [address] [place] [address] Performed By: #### 5 7021-8 ####[facility] LABIA [id number] [place] [address] [place] Hematocrit (Bld) [Volume fraction] 37.7 % Low 39.0-51.0 [facility] Comment on above: Order Comment: Speci men Type: BLOOD SPECIMENOrdering Facility: [facility] Address: [address] [place] [address] Performed By: #### 5 7021-8 ####[facility] LABIA [id number] [place] [address] [place] Hemoglobin (Bld) [Mass/Vol] 12.4 g/dL Low 13.0-17.0 [facility] Comment on above: Order Comment: Speci men Type: BLOOD SPECIMENOrdering Facility: [facility] Address: [address] [place] [address] Performed By: #### 5 7021-8 ####[facility] LABIA [id number] [place] [address] [place] Immature granulocytes (Bld) [#/Vol] 0.14 10*3/uL High <0.10 [facility] Comment on above: Order Comment: Speci men Type: BLOOD SPECIMENOrdering Facility: [facility] Address: [address] [place] [address] Performed By: #### 5 7021-8 ####[facility] LABIA [id number] [place] [address] [place] Immature granulocytes/100 WBC (Bld) 1.4 % Normal [facility] Comment on above: Order Comment: Speci men Type: BLOOD SPECIMENOrdering Facility: [facility] Address: [address] [place] [address] Performed By: #### 5 7021-8 ####[facility] LABCLIA [id number] [place] [address] [place] Lymphocytes (Bld) [#/Vol] 2.70 10*3/uL Normal 1.00-4.00 [facility] Comment on above: Order Comment: Speci men Type: BLOOD SPECIMENOrdering Facility: [facility] Address: [address] [place] [address] Performed By: #### 5 7021-8 ####[facility] LABCLIA [id number] [place] [address] [place] Lymphocytes/100 WBC (Bld) 26.8 % Normal [facility] Comment on above: Order Comment: Speci men Type: BLOOD SPECIMENOrdering Facility: [facility] Address: [address] [place] [address] Performed By: #### 5 7021-8 ####[facility] LABCLIA [id number] [place] [address] [place] MCH (RBC) [Entitic mass] 31.1 pg Normal 26.0-34.0 [facility] Comment on above: Order Comment: Speci men Type: BLOOD SPECIMENOrdering Facility: [facility] Address: [address] [place] [address] Performed By: #### 5 7021-8 ####[facility] LABCLIA [id number] [place] [address] [place] MCHC (RBC) [Mass/Vol] 32.9 g/dL Normal 30.5-36.0 [facility] Comment on above: Order Comment: Speci men Type: BLOOD SPECIMENOrdering Facility: [facility] Address: [address] [place] [address] Performed By: #### 5 7021-8 ####[facility] LABCLIA [id number] [address], [facility] [place] MCV (RBC) [Entitic vol] 94.5 fL Normal 80.0-100.0 [facility] Comment on above: Order Comment: Speci men Type: BLOOD SPECIMENOrdering Facility: [facility] Address: [address] [place] [address] Performed By: #### 5 7021-8 ####[facility] LABCLIA [id number] [address], [facility] [place] Monocytes (Bld) [#/Vol] 1.26 10*3/uL High <0.87 [facility] Comment on above: Order Comment: Speci men Type: BLOOD SPECIMENOrdering Facility: [facility] Address: [address] [place] [address] Performed By: #### 5 7021-8 ####[facility] LABCLIA [id number] [address], [facility] [place] Monocytes/100 WBC (Bld) 12.5 % Normal [facility] Comment on above: Order Comment: Speci men Type: BLOOD SPECIMENOrdering Facility: [facility] Address: [address] [place] [address] Performed By: #### 5 7021-8 ####[facility] LABCLIA [id number] [address] [place] [address] [place] Neutrophils (Bld) [#/Vol] 5.60 10*3/uL Normal 1.45-7.50 [facility] Comment on above: Order Comment: Speci men Type: BLOOD SPECIMENOrdering Facility: [facility] Address: [address] [place] [address] Performed By: #### 5 7021-8 ####[facility] LABCLIA [id number] [address] [place] [address] [place] Neutrophils/100 WBC (Bld) 55.5 % Normal [facility] Comment on above: Order Comment: Speci men Type: BLOOD SPECIMENOrdering Facility: [facility] Address: [address] [place] [address] Performed By: #### 5 7021-8 ####[facility] LABCLIA [id number] [facility] [place] [address] [place] Nucleated RBC (Bld) [#/Vol] 10*3/uL Normal <0.01 [facility] Comment on above: Order Comment: Speci men Type: BLOOD SPECIMENOrdering Facility: [facility] Address: [address] [place] [address] Performed By: #### 5 7021-8 ####[facility] LABCLIA [id number] [place] [address] [place] Nucleated RBC/100 WBC (Bld) [Ratio] 0.0 /100 WBC Normal [facility] Comment on above: Order Comment: Speci men Type: BLOOD SPECIMENOrdering Facility: [facility] Address: [address] [place] [address] Performed By: #### 5 7021-8 ####[facility] LABCLIA [id number] [place] [address] [place] Platelet mean volume (Bld) [Entitic vol] 10.2 fL Normal 9.0-12.7 [facility] Comment on above: Order Comment: Speci men Type: BLOOD SPECIMENOrdering Facility: [facility] Address: [address] [place] [address] Performed By: #### 5 7021-8 ####[facility]CLIA [id number] [place] [address] [place] Platelets (Bld) [#/Vol] 290 10*3/uL Normal 150-400 [facility] Comment on above: Order Comment: Speci men Type: BLOOD SPECIMENOrdering Facility: [facility] Address: [address] [place] [address] Performed By: #### 5 7021-8 ####[facility] LABIA [id number] [place] [id number] [place] RBC (Bld) [#/Vol] 3.99 10*6/uL Low 4.20-6.00 [facility] Comment on above: Order Comment: Speci men Type: BLOOD SPECIMENOrdering Facility: [facility] Address: [address] [place] [address] Performed By: #### 5 7021-8 ####[facility] LABIA [id number] [place] [id number] [place] WBC (Bld) [#/Vol] 10.08 10*3/uL Normal 3.70-11.00 [facility] Comment on above: Order Comment: Speci men Type: BLOOD SPECIMENOrdering Facility: [facility] Address: [address] [place] [address] Performed By: #### 5 7021-8 ####[facility] [id number] [place] [id number] [place] Comprehensive metabolic 2000 panelon 06-07-2024 Albumin [Mass/Vol] 3.9 g/dL Normal 3.9-4.9 [facility] Comment on above: Order Comment: Speci men Type: BLOOD SPECIMENOrdering Facility: [facility] Address: [address] [place] [address] Performed By: #### 1 9123-9, 2777-1, 96405-2, HSTNT ####[facility] [id number] [place] [id number] [place] ALP [Catalytic activity/Vol] 76 U/L Normal 38-113 [facility] Comment on above: Order Comment: Speci men Type: BLOOD SPECIMENOrdering Facility: [facility] Address: [address] [place] [address] Performed By: #### 1 9123-9, 2777-1, 54177-4, HSTNT ####[facility] LABCLIA [id number] [address] [address] [place] ALT [Catalytic activity/Vol] 12 U/L Normal 10-54 [facility] Comment on above: Order Comment: Speci men Type: BLOOD SPECIMENOrdering Facility: [facility] Address: [address] [place] [address] Performed By: #### 1 9123-9, 2777-1, 58918-1, HSTNT ####[facility] LABIA [id number] [address] [address] [place] Anion gap [Moles/Vol] 16 mmol/L High 8-15 [facility] Comment on above: Order Comment: Speci men Type: BLOOD SPECIMENOrdering Facility: [facility] Address: [address] [place] [address] Performed By: #### 1 9123-9, 2777-1, 15931-4, HSTNT ####[facility] LABIA [id number] [address] [address] [place] AST [Catalytic activity/Vol] 24 U/L Normal 14-40 [facility] Comment on above: Order Comment: Speci men Type: BLOOD SPECIMENOrdering Facility: [facility] Address: [address] [place], [place] [address] Performed By: #### 1 9123-9, 2777-1, 11639-8, HSTNT ####[facility]IA [id number] [address] [address] [place] Bilirubin [Mass/Vol] 1.0 mg/dL Normal 0.2-1.3 [facility] Comment on above: Order Comment: Speci men Type: BLOOD SPECIMENOrdering Facility: [facility] Address: [address] [place], [place] [address] Performed By: #### 1 9123-9, 2777-1, 15818-1, HSTNT ####[facility] LABCLIA [id number] [address] [address] [place] Calcium [Mass/Vol] 9.6 mg/dL Normal 8.5-10.2 [facility] Comment on above: Order Comment: Speci men Type: BLOOD SPECIMENOrdering Facility: [facility] Address: [address] [place], [place] [id number] Performed By: #### 1 9123-9, 2777-, 83587-2, HSTNT ####[facility] LABCLIA [id number] [address] [address] [place] Chloride [Moles/Vol] 99 mmol/L Normal 98-107 [facility] Comment on above: Order Comment: Speci men Type: BLOOD SPECIMENOrdering Facility: [facility] Address: [address] [place], [place] [address] Performed By: #### 1 9123-9, 27709-07, 43946-6, HSTNT ####[facility] LABIA [id number] [address] [address] [place] CO2 [Moles/Vol] 24 mmol/L Normal 22-30 [facility] Comment on above: Order Comment: Speci men Type: BLOOD SPECIMENOrdering Facility: [facility] Address: [address] [place] [address] Performed By: #### 1 9123-9, 277-, 28678-6, HSTNT ####[facility] LABIA [id number] [address] [address] [place] Creatinine [Mass/Vol] 1.04 mg/dL Normal 0.73-1.22 [facility] Comment on above: Order Comment: Speci men Type: BLOOD SPECIMENOrdering Facility: [facility] Address: [address] [place] [address] Performed By: #### 1 9123-9, 2777-1, 23708-6, HSTNT ####[facility] LABIA [id number] [place] [address] [place] Creatinine and Glomerular filtration rate.predicted panel (S/P/Bld) 79 mL/min/1.73m??? Normal >=60 [facility] Comment on above: Order Comment: Roberto Carlos lion Type: BLOOD SPECIMENOrdering Facility: [facility] Address: [address] [place] [address] Result Comment: Yesica mated Glomerular Filtration Rate [...] GFR. Performed By: #### 1 9123-9, 2777-1, 72372-6, HSTNT ####[facility] LABIA [id number] [place] [id number] [place] Glucose [Mass/Vol] 110 mg/dL High 74-99 [facility] Comment on above: Order Comment: Roberto Carlos lion Type: BLOOD SPECIMENOrdering Facility: [facility] Address: [address] [place] [address] Result Comment: The [place] Diabetes Association (ADA) provides guidance for cutoff [...] Standards of Medical Care in Diabetes 2016, [place] Diabetes Association. Diabetes Care. 2016.39(Suppl 1). Performed By: #### 1 9123-9, 7-, 38897-6, HSTNT ####[facility] LABCLIA [id number] [address] [address] [place] Potassium [Moles/Vol] 3.9 mmol/L Normal 3.7-5.1 [facility] Comment on above: Order Comment: Speci men Type: BLOOD SPECIMENOrdering Facility: [facility] Address: [address] [place], [place] [address] Performed By: #### 1 9123-9, 2776-, 01094-3, HSTNT ####[facility] LABIA [id number] [address] [address] [place] Protein [Mass/Vol] 6.3 g/dL Normal 6.3-8.0 [facility] Comment on above: Order Comment: Speci men Type: BLOOD SPECIMENOrdering Facility: [facility] Address: [address] [place], [place] [address] Performed By: #### 1 9123-9, 2776-03, 86489-5, HSTNT ####[facility] LABIA [id number] [address] [address] [place] Sodium [Moles/Vol] 139 mmol/L Normal 136-144 [facility] Comment on above: Order Comment: Speci men Type: BLOOD SPECIMENOrdering Facility: [facility] Address: [address] [place], [place] [address] Performed By: #### 1 9123-9, 2776-03, 38100-8, HSTNT ####[facility] LABIA [id number] [address] [address] [place] Urea nitrogen [Mass/Vol] 17 mg/dL Normal 9-24 [facility] Comment on above: Order Comment: Speci men Type: BLOOD SPECIMENOrdering Facility: [facility] Address: [address] [place], [place] [address] Performed By: #### 1 9123-9, 2777-1, 16564-5, HSTNT ####[facility] LABCLIA [id number] [place] [id number] [place] ECG COMPLETEon 06-07-2024 ECG COMPLETE Normal [facility] HIGH SENSITIVITY TROPONIN To n 06-07-2024 Troponin T.cardiac High sensitivity method [Mass/Vol] 31 ng/L High <12 [facility] Comment on above: Order Comment: Speci men Type: BLOOD SPECIMENOrdering Facility: [facility] Address: [address] [place] [address] Performed By: #### 1 9123-9, 277-1, 29589-2, HSTNT ####[facility] LABCLIA [id number] [place] [address] [place] MEDICAL EMERon 06-07-2024 MEDICAL KAITLYN Normal [facility] Magnesium [Mass/Vol] 1.9 mg/dL Normal 1.7-2.3 [facility] Comment on above: Order Comment: Speci men Type: BLOOD SPECIMENOrdering Facility: [facility] Address: [address] [place] [address] Performed By: #### 1 9123-9, 2776-, 56845-2, HSTNT ####[facility] LABCLIA [id number] [place] [address] [place] NURSING PROGon 06-07-2024 NURSING PROG Normal [facility] NURSING PROG Normal [facility] Phosphate SerPl-mCncon 06-07 Phosphate [Mass/Vol] 3.3 mg/dL Normal 2.7-4.8 [facility] Comment on above: Order Comment: Speci men Type: BLOOD SPECIMENOrdering Facility: [facility] Address: [address] [place] [address] Performed By: #### 1 9123-9, 2777-1, 33487-4, HSTNT ####[facility] LABCLIA [id number] [place] [address] [place] ARTERIAL BLOOD GASESon 06-06 Base excess Calc (Bld) [Moles/Vol] 4 mmol/L High 0-2 [facility] Comment on above: Order Comment: Speci men Type: ARTERIAL BLOOD SPECIMENOrdering Facility: [facility] Address: [address] [place] [address] Performed By: #### A LLBG ####[facility] [id number] [place] [address] [place] Body temperature 98.6 [degF] Normal [facility] Comment on above: Order Comment: Speci men Type: ARTERIAL BLOOD SPECIMENOrdering Facility: [facility] Address: [address] [place] [address] Performed By: #### A LLBG ####[facility] [id number] [place] [address] [place] Calcium.ionized (Bld) [Mass/Vol] 1.23 mmol/L Normal 1.08-1.30 [facility] Comment on above: Order Comment: Speci men Type: ARTERIAL BLOOD SPECIMENOrdering Facility: [facility] Address: [address] [place] [address] Performed By: #### A LLBG ####[facility] [id number] [place] [address] [place] Calcium.ionized adjusted to pH 7.4 (BldA) [Moles/Vol] 1.26 mmol/L Normal 1.08-1.30 [facility] Comment on above: Order Comment: Speci men Type: ARTERIAL BLOOD SPECIMENOrdering Facility: [facility] Address: [address] [place] [address] Performed By: #### A LLBG ####[facility] [id number] [place] [address] [place] Carboxyhemoglobin (BldA) [Mass fraction] 1.2 % Normal 0.0-2.0 [facility] Comment on above: Order Comment: Speci men Type: ARTERIAL BLOOD SPECIMENOrdering Facility: [facility] Address: [address] [place] [address] Result Comment: Carb oxyhemoglobin Reference Range for Smokers: 2.0-8.0% Performed By: #### A LLBG ####[facility] LABCLIA [id number] [place] [address] [place] CO2 (Bld) [Partial pressure] 39 mm Hg Normal 36-46 [facility] Comment on above: Order Comment: Speci men Type: ARTERIAL BLOOD SPECIMENOrdering Facility: [facility] Address: [address] [place] [address] Performed By: #### A LLBG ####[facility] LABCLIA [id number] [place] [address] [place] Glucose [Mass/Vol] 116 mg/dL High 60-105 [facility] Comment on above: Order Comment: Speci men Type: ARTERIAL BLOOD SPECIMENOrdering Facility: [facility] Address: [address] [place] [address] Performed By: #### A LLBG ####[facility] LABCLIA [id number] [place] [address] [place] HCO3 (Bld) [Moles/Vol] 27 mmol/L High 22-26 [facility] Comment on above: Order Comment: Speci men Type: ARTERIAL BLOOD SPECIMENOrdering Facility: [facility] Address: [address] [place] [address] Performed By: #### A LLBG ####[facility] LABCLIA [id number] [place] [id number] [place] Hematocrit (Bld) [Volume fraction] 39.5 % Normal 39.0-51.0 [facility] Comment on above: Order Comment: Speci men Type: ARTERIAL BLOOD SPECIMENOrdering Facility: [facility] Address: [address] [place] [address] Performed By: #### A LLBG ####[facility] LABIA [id number] [place] [address] [place] Hemoglobin (Bld) [Mass/Vol] 12.9 g/dL Low 13.0-17.0 [facility] Comment on above: Order Comment: Speci men Type: ARTERIAL BLOOD SPECIMENOrdering Facility: [facility] Address: [address] [place] [address] Performed By: #### A LLBG ####[facility] LABIA [id number] [place] [address] [place] Lactate [Moles/Vol] 0.6 mmol/L Normal 0.5-2.2 [facility] Comment on above: Order Comment: Speci men Type: ARTERIAL BLOOD SPECIMENOrdering Facility: [facility] Address: [address] [place] [address] Performed By: #### A LLBG ####[facility] LABIA [id number] [place] [address] [place] Methemoglobin (Bld) [Mass fraction] 0.5 % Normal 0.0-1.5 [facility] Comment on above: Order Comment: Speci men Type: ARTERIAL BLOOD SPECIMENOrdering Facility: [facility] Address: [address] [place] [address] Performed By: #### A LLBG ####[facility] LABCLIA [id number] [place] [address] [place] O2 THERAPY RA=Room Air Normal [facility] Comment on above: Order Comment: Speci men Type: ARTERIAL BLOOD SPECIMENOrdering Facility: [facility] Address: [address] [place] [address] Performed By: #### A LLBG ####[facility] LABIA [id number] [id number] [address] [place] Oxygen (Bld) [Partial pressure] 74 mm Hg Low 85-95 [facility] Comment on above: Order Comment: Speci men Type: ARTERIAL BLOOD SPECIMENOrdering Facility: [facility] Address: [address] [place] [address] Performed By: #### A LLBG ####[facility] LABCLIA [id number] [place] [address] [place] Oxyhemoglobin (BldA) [Mass fraction] 94 % Low 95-98 [facility] Comment on above: Order Comment: Speci men Type: ARTERIAL BLOOD SPECIMENOrdering Facility: [facility] Address: [address] [place] [address] Performed By: #### A LLBG ####[facility] LABCLIA [id number] [place] [address] [place] pH (Bld) 7.46 [pH] High 7.35-7.45 [facility] Comment on above: Order Comment: Speci men Type: ARTERIAL BLOOD SPECIMENOrdering Facility: [facility] Address: [address] [place] [address] Performed By: #### A LLBG ####[facility] LABCLIA [id number] [place] [address] [place] PO2 / FIO2 RATIO 352 mmHg Normal >300 [facility] Comment on above: Order Comment: Speci men Type: ARTERIAL BLOOD SPECIMENOrdering Facility: [facility] Address: [address] [place] [address] Performed By: #### A LLBG ####[facility] LABCLIA [id number] [place] [address] [place] Potassium [Moles/Vol] 3.8 mmol/L Normal 3.5-5.0 [facility] Comment on above: Order Comment: Speci men Type: ARTERIAL BLOOD SPECIMENOrdering Facility: [facility] Address: [address] [place] [address] Performed By: #### A LLBG ####[facility] LABCLIA [id number] [address] [address] [place] Sodium [Moles/Vol] 137 mmol/L Normal 136-144 [facility] Comment on above: Order Comment: Speci men Type: ARTERIAL BLOOD SPECIMENOrdering Facility: [facility] Address: [address] [place] [address] Performed By: #### A LLBG ####[facility] LABCLIA [id number] [address] [address] [place] Basic metabolic 2000 panelon 06-06-2024 Anion gap [Moles/Vol] 11 mmol/L Normal 8-15 [facility] Comment on above: Order Comment: Speci men Type: BLOOD SPECIMENOrdering Facility: [facility] Address: [address] [place] [address] Performed By: #### 2 4321-2, HSTNT ####[facility] LABIA [id number] [place] [id number] [place] Calcium [Mass/Vol] 9.8 mg/dL Normal 8.5-10.2 [facility] Comment on above: Order Comment: Speci men Type: BLOOD SPECIMENOrdering Facility: [facility] Address: [address] [place] [address] Performed By: #### 2 4321-2, HSTNT ####[facility] LABCLIA [id number] [address] [address] [place] Chloride [Moles/Vol] 102 mmol/L Normal 98-107 [facility] Comment on above: Order Comment: Speci men Type: BLOOD SPECIMENOrdering Facility: [facility] Address: [address] [place], [place] [address] Performed By: #### 2 4321-2, HSTNT ####[facility] LABCLIA [id number] [place] [id number] [place] CO2 [Moles/Vol] 27 mmol/L Normal 22-30 [facility] Comment on above: Order Comment: Speci men Type: BLOOD SPECIMENOrdering Facility: [facility] Address: [address] [place] [address] Performed By: #### 2 4321-2, HSTNT ####[facility] LABCLIA [id number] [place] [address] [place] Creatinine [Mass/Vol] 1.00 mg/dL Normal 0.73-1.22 [facility] Comment on above: Order Comment: Speci men Type: BLOOD SPECIMENOrdering Facility: [facility] Address: [address] [place] [address] Performed By: #### 2 4321-2, HSTNT ####[facility] LABCLIA [id number] [address] [facility] Creatinine and Glomerular filtration rate.predicted panel (S/P/Bld) 82 mL/min/1.73m??? Normal >=60 [facility] Comment on above: Order Comment: Speci men Type: BLOOD SPECIMENOrdering Facility: [facility] Address: [address] [place] [address] Result Comment: Yesica mated Glomerular Filtration Rate [...] GFR. Performed By: #### 2 4321-2, HSTNT ####[facility] LABCLIA [id number] [place] [address] [place] Glucose [Mass/Vol] 94 mg/dL Normal 74-99 [facility] Comment on above: Order Comment: Speci men Type: BLOOD SPECIMENOrdering Facility: [facility] Address: [address] [place] [address] Result Comment: The [place] Diabetes Association (ADA) provides guidance for cutoff [...] Standards of Medical Care in Diabetes 2016, [place] Diabetes Association. Diabetes Care. 2016.39(Suppl 1). Performed By: #### 2 4321-2, HSTNT ####[facility] LABCLIA [id number] [place] [address] [place] Potassium [Moles/Vol] 4.3 mmol/L Normal 3.7-5.1 [facility] Comment on above: Order Comment: Speci men Type: BLOOD SPECIMENOrdering Facility: [facility] Address: [address] [place] [address] Performed By: #### 2 4321-2, HSTNT ####[facility] [id number] [place] [address] [place] Sodium [Moles/Vol] 140 mmol/L Normal 136-144 [facility] Comment on above: Order Comment: Speci men Type: BLOOD SPECIMENOrdering Facility: [facility] Address: [address] [place] [address] Performed By: #### 2 4321-2, HSTNT ####[facility] LABIA [id number] [place] [address] [place] Urea nitrogen [Mass/Vol] 16 mg/dL Normal 9-24 [facility] Comment on above: Order Comment: Speci men Type: BLOOD SPECIMENOrdering Facility: [facility] Address: [address] [place] [address] Performed By: #### 2 4321-2, HSTNT ####[facility] LABIA [id number] [place] [address] [place] CBC panel Auto (Bld)on 06-06 Erythrocyte distribution width (RBC) [Ratio] 13.0 % Normal 11.5-15.0 [facility] Comment on above: Order Comment: Speci men Type: BLOOD SPECIMENOrdering Facility: [facility] Address: [address] [place] [address] Performed By: #### 5 8410-2 ####[facility] LABIA [id number] [place] [address] [place] Hematocrit (Bld) [Volume fraction] 39.7 % Normal 39.0-51.0 [facility] Comment on above: Order Comment: Speci men Type: BLOOD SPECIMENOrdering Facility: [facility] Address: [address] [place] [address] Performed By: #### 5 8410-2 ####[facility] LABIA [id number] [place] [address] [place] Hemoglobin (Bld) [Mass/Vol] 13.0 g/dL Normal 13.0-17.0 [facility] Comment on above: Order Comment: Speci men Type: BLOOD SPECIMENOrdering Facility: [facility] Address: [address] [place] [address] Performed By: #### 5 8410-2 ####[facility] LABCLIA [id number] [place] [id number] [place] MCH (RBC) [Entitic mass] 31.5 pg Normal 26.0-34.0 [facility] Comment on above: Order Comment: Speci men Type: BLOOD SPECIMENOrdering Facility: [facility] Address: [address] [place] [address] Performed By: #### 5 8410-2 ####[facility] LABCLIA [id number] [place] [address] [place] MCHC (RBC) [Mass/Vol] 32.7 g/dL Normal 30.5-36.0 [facility] Comment on above: Order Comment: Speci men Type: BLOOD SPECIMENOrdering Facility: [facility] Address: [address] [place] [address] Performed By: #### 5 8410-2 ####[facility] LABCLIA [id number] [place] [address] [place] MCV (RBC) [Entitic vol] 96.1 fL Normal 80.0-100.0 [facility] Comment on above: Order Comment: Speci men Type: BLOOD SPECIMENOrdering Facility: [facility] Address: [address] [place] [address] Performed By: #### 5 8410-2 ####[facility] LABCLIA [id number] [place] [address] [place] Nucleated RBC (Bld) [#/Vol] 10*3/uL Normal <0.01 [facility] Comment on above: Order Comment: Speci men Type: BLOOD SPECIMENOrdering Facility: [facility] Address: [address] [place] [address] Performed By: #### 5 8410-2 ####[facility]CLIA [id number] [place] [address] [place] Platelet mean volume (Bld) [Entitic vol] 10.4 fL Normal 9.0-12.7 [facility] Comment on above: Order Comment: Speci men Type: BLOOD SPECIMENOrdering Facility: [facility] Address: [address] [place] [address] Performed By: #### 5 8410-2 ####[facility]CLIA [id number] [place] [address] [place] Platelets (Bld) [#/Vol] 320 10*3/uL Normal 150-400 [facility] Comment on above: Order Comment: Speci men Type: BLOOD SPECIMENOrdering Facility: [facility] Address: [address] [place] [address] Performed By: #### 5 8410-2 ####[facility] [id number] [place] [address] [place] RBC (Bld) [#/Vol] 4.13 10*6/uL Low 4.20-6.00 [facility] Comment on above: Order Comment: Speci men Type: BLOOD SPECIMENOrdering Facility: [facility] Address: [address] [place] [address] Performed By: #### 5 8410-2 ####[facility]IA [id number] [place] [address] [place] WBC (Bld) [#/Vol] 9.89 10*3/uL Normal 3.70-11.00 [facility] Comment on above: Order Comment: Speci men Type: BLOOD SPECIMENOrdering Facility: [facility] Address: [address] [place] [address] Performed By: #### 5 8410-2 ####[facility] [id number] [place] [address] [place] HIGH SENSITIVITY TROPONIN To n 06-06-2024 Troponin T.cardiac High sensitivity method [Mass/Vol] 25 ng/L High <12 [facility] Comment on above: Order Comment: Speci men Type: BLOOD SPECIMENOrdering Facility: [facility] Address: [address] [place] [address] Performed By: #### 2 4321-2, HSTNT ####[facility]IA [id number] [place] [address] [place] NURSING PROGon 06-06-2024 NURSING PROG Normal [facility] NURSING PROG Normal [facility] XR CERVICAL 2V AP/LATon 03-2 9-2025 XR CERVICAL 2V AP/LAT Normal [facility] APAP SerPl-mCncon 06-04-2024 Acetaminophen [Mass/Vol] ug/mL Low 10-30 [facility] Comment on above: Order Comment: Roberto Carlos lion Type: BLOOD SPECIMENOrdering Facility: [facility] Address: [address] [place] [address] Result Comment: Toxi c > 150 ug/mL 4 hours post ingestionThe Anahi Terrell nomogram can be used to estimate the probability of hepatotoxicity via the relationship of plasma acetaminophen concentration to the post ingestion interval. (Greg. Pediatrics. 1975. 55:871 to 876 and Anahi et al. Arch Reference Data Expert Med. 1981. 141:380 to 385).Reference ranges and high/low indicator flags are provided as general guidelines only. The treating physician must determine appropriate target levels/dosing based on the specific clinical situation. Performed By: #### 3 298-7 ####[facility] [id number] [place] [address] [place] Basic metabolic 2000 panelon 06-04-2024 Anion gap [Moles/Vol] 9 mmol/L Normal 8-15 [facility] Comment on above: Order Comment: Roberto Carlos lion Type: BLOOD SPECIMENOrdering Facility: [facility] Address: [address] [place] [address] Performed By: #### 2 4321-2 ####[facility] [id number] [place] [address] [place] Calcium [Mass/Vol] 9.4 mg/dL Normal 8.5-10.2 [facility] Comment on above: Order Comment: Roberto Carlos lion Type: BLOOD SPECIMENOrdering Facility: [facility] Address: [address] [place] [address] Performed By: #### 2 4321-2 ####[facility] LABCLIA [id number] [place] [id number] [place] Chloride [Moles/Vol] 106 mmol/L Normal 98-107 [facility] Comment on above: Order Comment: Speci men Type: BLOOD SPECIMENOrdering Facility: [facility] Address: [address] [place] [address] Performed By: #### 2 4321-2 ####[facility] [id number] [place] [id number] [place] CO2 [Moles/Vol] 27 mmol/L Normal 22-30 [facility] Comment on above: Order Comment: Speci men Type: BLOOD SPECIMENOrdering Facility: [facility] Address: [address] [place] [address] Performed By: #### 2 4321-2 ####[facility] [id number] [address] [place] Creatinine [Mass/Vol] 1.07 mg/dL Normal 0.73-1.22 [facility] Comment on above: Order Comment: Speci men Type: BLOOD SPECIMENOrdering Facility: [facility] Address: [address] [place] [address] Performed By: #### 2 4321-2 ####[facility] [id number] [address] Creatinine and Glomerular filtration rate.predicted panel (S/P/Bld) 76 mL/min/1.73m??? Normal >=60 [facility] Comment on above: Order Comment: Speci men Type: BLOOD SPECIMENOrdering Facility: [facility] Address: [address] [place] [address] Result Comment: Yesica mated Glomerular Filtration Rate [...] actual GFR. Performed By: #### 2 4321-2 ####[facility] LABCLIA [id number] [place] [address] [place] Glucose [Mass/Vol] 98 mg/dL Normal 74-99 [facility] Comment on above: Order Comment: Speci men Type: BLOOD SPECIMENOrdering Facility: [facility] Address: [address] [place] [address] Result Comment: The [place] Diabetes Association (ADA) provides guidance for cutoff [...] Standards of Medical Care in Diabetes 2016, [place] Diabetes Association. Diabetes Care. 2016.39(Suppl 1). Performed By: #### 2 4321-2 ####[facility] LABCLIA [id number] [place] [address] [place] Potassium [Moles/Vol] 4.3 mmol/L Normal 3.7-5.1 [facility] Comment on above: Order Comment: Smitai men Type: BLOOD SPECIMENOrdering Facility: [facility] Address: [address] [place] [address] Performed By: #### 2 4321-2 ####[facility] LABCLIA [id number] [place] [address] [place] Sodium [Moles/Vol] 142 mmol/L Normal 136-144 [facility] Comment on above: Order Comment: Speci men Type: BLOOD SPECIMENOrdering Facility: [facility] Address: [address] [place] [address] Performed By: #### 2 4321-2 ####[facility] LABCLIA [id number] [place] [address] [place] Urea nitrogen [Mass/Vol] 12 mg/dL Normal 9-24 [facility] Comment on above: Order Comment: Speci men Type: BLOOD SPECIMENOrdering Facility: [facility] Address: [address] [place] [address] Performed By: #### 2 4321-2 ####[facility] LABCLIA [id number] [place] [address] [place] CBC panel Auto (Bld)on 06-04 Erythrocyte distribution width (RBC) [Ratio] 13.5 % Normal 11.5-15.0 [facility] Comment on above: Order Comment: Speci men Type: BLOOD SPECIMENOrdering Facility: [facility] Address: [address] [place] [address] Performed By: #### 5 8410-2 ####[facility] LABIA [id number] [address] [place] Hematocrit (Bld) [Volume fraction] 38.8 % Low 39.0-51.0 [facility] Comment on above: Order Comment: Speci men Type: BLOOD SPECIMENOrdering Facility: [facility] Address: [address] [place] [address] Performed By: #### 5 8410-2 ####[facility]CLIA [id number] [address] [place] Hemoglobin (Bld) [Mass/Vol] 12.2 g/dL Low 13.0-17.0 [facility] Comment on above: Order Comment: Speci men Type: BLOOD SPECIMENOrdering Facility: [facility] Address: [address] [place] [address] Performed By: #### 5 8410-2 ####[facility] LABCLIA [id number] [place] [id number] [place] MCH (RBC) [Entitic mass] 31.1 pg Normal 26.0-34.0 [facility] Comment on above: Order Comment: Speci men Type: BLOOD SPECIMENOrdering Facility: [facility] Address: [address] [place] [address] Performed By: #### 5 8410-2 ####[facility] LABCLIA [id number] [place] [address] [place] MCHC (RBC) [Mass/Vol] 31.4 g/dL Normal 30.5-36.0 [facility] Comment on above: Order Comment: Speci men Type: BLOOD SPECIMENOrdering Facility: [facility] Address: [address] [place] [address] Performed By: #### 5 8410-2 ####[facility] LABIA [id number] [place] [address] [place] MCV (RBC) [Entitic vol] 99.0 fL Normal 80.0-100.0 [facility] Comment on above: Order Comment: Speci men Type: BLOOD SPECIMENOrdering Facility: [facility] Address: [address] [place] [address] Performed By: #### 5 8410-2 ####[facility] LABIA [id number] [place] [address] [place] Nucleated RBC (Bld) [#/Vol] 10*3/uL Normal <0.01 [facility] Comment on above: Order Comment: Speci men Type: BLOOD SPECIMENOrdering Facility: [facility] Address: [address] [place] [address] Performed By: #### 5 8410-2 ####[facility] LABCLIA [id number] [place] [address] [place] Platelet mean volume (Bld) [Entitic vol] 10.2 fL Normal 9.0-12.7 [facility] Comment on above: Order Comment: Speci men Type: BLOOD SPECIMENOrdering Facility: [facility] Address: [address] [place] [address] Performed By: #### 5 8410-2 ####[facility] LABCLIA [id number] [address] [place] [address] [place] Platelets (Bld) [#/Vol] 239 10*3/uL Normal 150-400 [facility] Comment on above: Order Comment: Speci men Type: BLOOD SPECIMENOrdering Facility: [facility] Address: [address] [place] [address] Performed By: #### 5 8410-2 ####[facility] LABIA [id number] [address] [address] [place] RBC (Bld) [#/Vol] 3.92 10*6/uL Low 4.20-6.00 [facility] Comment on above: Order Comment: Speci men Type: BLOOD SPECIMENOrdering Facility: [facility] Address: [address] [place] [address] Performed By: #### 5 8410-2 ####[facility] LABIA [id number] [place] [address] [place] WBC (Bld) [#/Vol] 10.60 10*3/uL Normal 3.70-11.00 [facility] Comment on above: Order Comment: Speci men Type: BLOOD SPECIMENOrdering Facility: [facility] Address: [address] [place] [address] Performed By: #### 5 8410-2 ####[facility] LABIA [id number] [place] [id number] [place] Hepatic function 2000 panelo n 06-04-2024 Albumin [Mass/Vol] 4.0 g/dL Normal 3.9-4.9 [facility] Comment on above: Order Comment: Speci men Type: BLOOD SPECIMENOrdering Facility: [facility] Address: [address] [place] [address] Performed By: #### 2 4325-3 ####[facility] LABIA [id number] [address] [address] [place] ALP [Catalytic activity/Vol] 62 U/L Normal 38-113 [facility] Comment on above: Order Comment: Speci men Type: BLOOD SPECIMENOrdering Facility: [facility] Address: [address] [place] [address] Performed By: #### 2 4325-3 ####[facility] LABCLIA [id number] [place] [address] [place] ALT [Catalytic activity/Vol] 9 U/L Low 10-54 [facility] Comment on above: Order Comment: Speci men Type: BLOOD SPECIMENOrdering Facility: [facility] Address: [address] [place] [address] Performed By: #### 2 4325-3 ####[facility] LABCLIA [id number] [place] [address] [place] AST [Catalytic activity/Vol] 26 U/L Normal 14-40 [facility] Comment on above: Order Comment: Speci men Type: BLOOD SPECIMENOrdering Facility: [facility] Address: [address] [place] [address] Performed By: #### 2 4325-3 ####[facility] LABCLIA [id number] [place] [address] [place] Bilirubin [Mass/Vol] 0.5 mg/dL Normal 0.2-1.3 [facility] Comment on above: Order Comment: Speci men Type: BLOOD SPECIMENOrdering Facility: [facility] Address: [address] [place], [place] [address] Performed By: #### 2 4325-3 ####[facility] LABCLIA [id number] [place] [address] [place] Bilirubin.conjugated [Mass/Vol] 0.2 mg/dL Normal <0.3 [facility] Comment on above: Order Comment: Speci men Type: BLOOD SPECIMENOrdering Facility: [facility] Address: [address] [place] [address] Performed By: #### 2 4325-3 ####[facility] LABCLIA [id number] [address] [address] [place] Protein [Mass/Vol] 6.0 g/dL Low 6.3-8.0 [facility] Comment on above: Order Comment: Speci men Type: BLOOD SPECIMENOrdering Facility: [facility] Address: [address] [place] [id number] Performed By: #### 2 4325-3 ####[facility] LABCLIA [id number] [address] [address] [place] THERAPY NTon 06-04-2024 THERAPY NT Normal [facility] XR CERVICAL 2V AP/LATon 05-09 XR CERVICAL 2V AP/LAT Normal [facility] Basic metabolic 2000 panelon 06-03-2024 Anion gap [Moles/Vol] 14 mmol/L Normal 8-15 [facility] Comment on above: Order Comment: Speci men Type: BLOOD SPECIMENOrdering Facility: [facility] Address: [address] [place] [address] Performed By: #### 2 4321-2 ####[facility] LABCLIA [id number] [address] [address] [place] Calcium [Mass/Vol] 9.5 mg/dL Normal 8.5-10.2 [facility] Comment on above: Order Comment: Speci men Type: BLOOD SPECIMENOrdering Facility: [facility] Address: [address] [place] [address] Performed By: #### 2 4321-2 ####[facility] LABCLIA [id number] [place] [address] [place] Chloride [Moles/Vol] 103 mmol/L Normal 98-107 [facility] Comment on above: Order Comment: Speci men Type: BLOOD SPECIMENOrdering Facility: [facility] Address: [address] [place] [address] Performed By: #### 2 4321-2 ####[facility] LABCLIA [id number] [address] [address] [place] CO2 [Moles/Vol] 23 mmol/L Normal 22-30 [facility] Comment on above: Order Comment: Speci men Type: BLOOD SPECIMENOrdering Facility: [facility] Address: [address] [place] [address] Performed By: #### 2 4321-2 ####[facility] LABIA [id number] [address] [address] [place] Creatinine [Mass/Vol] 0.88 mg/dL Normal 0.73-1.22 [facility] Comment on above: Order Comment: Speci men Type: BLOOD SPECIMENOrdering Facility: [facility] Address: [address] [place] [address] Performed By: #### 2 4321-2 ####[facility] LABIA [id number] [place] [address] [place] Creatinine and Glomerular filtration rate.predicted panel (S/P/Bld) 94 mL/min/1.73m??? Normal >=60 [facility] Comment on above: Order Comment: Speci men Type: BLOOD SPECIMENOrdering Facility: [facility] Address: [address] [place] [address] Result Comment: Yesica mated Glomerular Filtration Rate [...] actual GFR. Performed By: #### 2 4321-2 ####[facility] LABCLIA [id number] [address] [address] [place] Glucose [Mass/Vol] 135 mg/dL High 74-99 [facility] Comment on above: Order Comment: Speci men Type: BLOOD SPECIMENOrdering Facility: [facility] Address: [address] [place] [address] Result Comment: The [place] Diabetes Association (ADA) provides guidance for cutoff [...] Standards of Medical Care in Diabetes 2016, [place] Diabetes Association. Diabetes Care. 2016.39(Suppl 1). Performed By: #### 2 4321-2 ####[facility] LABCLIA [id number] [place] [address] [place] Potassium [Moles/Vol] 4.2 mmol/L Normal 3.7-5.1 [facility] Comment on above: Order Comment: Speci men Type: BLOOD SPECIMENOrdering Facility: [facility] Address: [address] [place] [address] Performed By: #### 2 4321-2 ####[facility] LABCLIA [id number] [place] [id number] [place] Sodium [Moles/Vol] 140 mmol/L Normal 136-144 [facility] Comment on above: Order Comment: Speci men Type: BLOOD SPECIMENOrdering Facility: [facility] Address: [address] [place] [address] Performed By: #### 2 4321-2 ####[facility] LABCLIA [id number] [address] [address] [place] Urea nitrogen [Mass/Vol] 15 mg/dL Normal 9-24 [facility] Comment on above: Order Comment: Speci men Type: BLOOD SPECIMENOrdering Facility: [facility] Address: [address] [place] [address] Performed By: #### 2 4321-2 ####[facility] LABCLIA [id number] [place] [address] [place] CASE MGT INIT ASSESon 2024 CASE MGT INIT ASSES Normal [facility] CBC panel Auto (Bld)on 06-03 Erythrocyte distribution width (RBC) [Ratio] 13.0 % Normal 11.5-15.0 [facility] Comment on above: Order Comment: Speci men Type: BLOOD SPECIMENOrdering Facility: [facility] Address: [address] [place] [address] Performed By: #### 5 8410-2 ####[facility] LABIA [id number] [place] [address] [place] Hematocrit (Bld) [Volume fraction] 37.5 % Low 39.0-51.0 [facility] Comment on above: Order Comment: Speci men Type: BLOOD SPECIMENOrdering Facility: [facility] Address: [address] [place] [address] Performed By: #### 5 8410-2 ####[facility] LABIA [id number] [place] [address] [place] Hemoglobin (Bld) [Mass/Vol] 12.4 g/dL Low 13.0-17.0 [facility] Comment on above: Order Comment: Speci men Type: BLOOD SPECIMENOrdering Facility: [facility] Address: [address] [place] [address] Performed By: #### 5 8410-2 ####[facility] LABIA [id number] [place] [address] [place] MCH (RBC) [Entitic mass] 31.2 pg Normal 26.0-34.0 [facility] Comment on above: Order Comment: Speci men Type: BLOOD SPECIMENOrdering Facility: [facility] Address: [address] [place] [address] Performed By: #### 5 8410-2 ####[facility] LABCLIA [id number] [place] [address] [place] MCHC (RBC) [Mass/Vol] 33.1 g/dL Normal 30.5-36.0 [facility] Comment on above: Order Comment: Speci men Type: BLOOD SPECIMENOrdering Facility: [facility] Address: [address] [place] [address] Performed By: #### 5 8410-2 ####[facility] LABCLIA [id number] [place] [address] [place] MCV (RBC) [Entitic vol] 94.5 fL Normal 80.0-100.0 [facility] Comment on above: Order Comment: Speci men Type: BLOOD SPECIMENOrdering Facility: [facility] Address: [address] [place] [address] Performed By: #### 5 8410-2 ####[facility] LABIA [id number] [place] [address] [place] Nucleated RBC (Bld) [#/Vol] 10*3/uL Normal <0.01 [facility] Comment on above: Order Comment: Speci men Type: BLOOD SPECIMENOrdering Facility: [facility] Address: [address] [place] [address] Performed By: #### 5 8410-2 ####[facility] LABCLIA [id number] [place] [address] [place] Platelet mean volume (Bld) [Entitic vol] 10.4 fL Normal 9.0-12.7 [facility] Comment on above: Order Comment: Speci men Type: BLOOD SPECIMENOrdering Facility: [facility] Address: [address] [place] [address] Performed By: #### 5 8410-2 ####[facility] LABCLIA [id number] [place] [address] [place] Platelets (Bld) [#/Vol] 266 10*3/uL Normal 150-400 [facility] Comment on above: Order Comment: Speci men Type: BLOOD SPECIMENOrdering Facility: [facility] Address: [address] [place] [address] Performed By: #### 5 8410-2 ####[facility] [id number] [place] [address] [place] RBC (Bld) [#/Vol] 3.97 10*6/uL Low 4.20-6.00 [facility] Comment on above: Order Comment: Speci men Type: BLOOD SPECIMENOrdering Facility: [facility] Address: [address] [place] [address] Performed By: #### 5 8410-2 ####[facility] [id number] [place] [address] [place] WBC (Bld) [#/Vol] 13.37 10*3/uL High 3.70-11.00 [facility] Comment on above: Order Comment: Speci men Type: BLOOD SPECIMENOrdering Facility: [facility] Address: [address] [place] [address] Performed By: #### 5 8410-2 ####[facility] [id number] [place] [address] [place] THERAPY NTon 06-03-2024 THERAPY NT Normal [facility] ANES POSTPROC EVALon 025 ANES POSTPROC EVAL Normal [facility] ANES PRE-OPon 06-02-2024 ANES PRE-OP Normal [facility] BRIEF OP NOTon 06-02-2024 BRIEF OP NOT Normal [facility] OPERATIVE NOon 06-02-2024 OPERATIVE NO Normal [facility] XR CERVICAL SPECIFY 1Von XR CERVICAL SPECIFY 1V Normal [facility] XR VERIFY LEVEL T-YDGIX-GLuv 06-02-2024 XR VERIFY LEVEL C-SPINE-NB Normal [facility] CT Cervical spine WO contras ton 05-16-2024 IMPRESSION: Developmental cervical canal stenosis with superimposed degenerative changes that are most prominent at C5-6 where there is severe cord compression. Multilevel bony foraminal narrowing as detailed above. Anatomic Variant: None. Assume 7 cervical vertebrae with counting from the craniocervical junction. Outpatient Services Director: PSCB Transcribe Date/Time: May 16 2024 7:44A Dictated by : DOMENIC FORD MD This examination was interpreted and the report reviewed and electronically signed by: DOMENIC FORD MD on May 16 2024 7:54AM [facility] * * *Final Report* * * DATE OF EXAM: May 14 2024 9:37AM [facility] 0505 - CT CERVICAL SPINE [...] Counting reference: Craniocervical junction. Anatomic Variants: None. Vp Genetic (topogram) images: No additional findings. Alignment: There [...] degenerative changes cause mild bilateral foraminal stenosis. [place] [facility] Provider, [facility] - 05/16/2024 * * *Final Report* * * DATE OF EXAM: May 14 2024 9:37AM [facility] 0505 - CT CERVICAL SPINE [...] Counting reference: Craniocervical junction. Anatomic Variants: None. Vp Genetic (topogram) images: No additional findings. Alignment: There [...] vertebrae with counting from the craniocervical junction. Outpatient Services Director: PSCB Transcribe Date/Time: May 16 2024 7:44A Dictated by : DOMENIC FORD MD This examination was interpreted and the report reviewed and electronically signed by: DOMENIC FORD MD on May 16 2024 7:54AM EST [facility] CT Cervical spine WO contras tOrdered By: Ccf Provider on 05-16-[address] [facility] [address] CERVICAL SPINE WO IVCONon 05-14-2024 CT CERVICAL SPINE WO IVCON * * *Final Report* * * DATE OF EXAM: May 14 2024 9:37AM [facility] 0505 - CT CERVICAL SPINE [...] Counting reference: Craniocervical junction. Anatomic Variants: None. Vp Genetic (topogram) images: No additional findings. Alignment: There [...] vertebrae with counting from the craniocervical junction. Outpatient Services Director: PSCB Transcribe Date/Time: May 16 2024 7:44A Dictated by : DOMENIC FORD MD This examination was interpreted and the report reviewed and electronically signed by: DOMENIC FORD MD on May 16 2024 7:54AM EST [id number] Normal [facility] CT Cervical spine WO contras ton 05-14-2024 Radiology Study observation (narrative) [facility] Basic metabolic 2000 panelon 05-12-2024 Anion gap [Moles/Vol] 11 mmol/L 8 - 15 mmol/L [facility] Calcium [Mass/Vol] 9.8 mg/dL 8.5 - 10. 2 mg/dL [facility] Chloride [Moles/Vol] 99 mmol/L 98 - 10 7 mmol/L [facility] CO2 [Moles/Vol] 28 mmol/L 22 - 30 mmol/L [facility] Creatinine [Mass/Vol] 0.91 mg/dL 0.73 - 1.22 mg/dL [facility] GFR/1.73 sq M.predicted among non-blacks MDRD (S/P/Bld) [Vol rate/Area] 92 mL/min/{1.73_m2} - PINF [facility] Comment on above: Estimated Glomerular Filtration Rate [...] 120 mg/dL High 74 - 99 mg/dL [facility] Comment on above: The [place] Diabete s Association (ADA) provides guidance for [...] Standards of Medical Care in Diabetes 2016, [place] Diabetes Association. Diabetes Care. 2016.39(Suppl 1). Interpretation and review of laboratory results Abnormal [facility] Potassium [Moles/Vol] 4.4 mmol/L 3.7 - 5.1 mmol/L [facility] Sodium [Moles/Vol] 138 mmol/L 136 - 144 mmol/L [facility] Urea nitrogen [Mass/Vol] 23 mg/dL 9 - 24 mg/dL [facility] Anion gap [Moles/Vol] 11 mmol/L Normal 8-15 [facility] Comment on above: Order Comment: Speci men Type: BLOOD SPECIMENOrdering Facility: [facility] Address: [address] [place] [address] Performed By: #### 5 0190-8, 88420-6, 2275-4 ####[facility] LABIA [id number] [place] [address] [place] Calcium [Mass/Vol] 9.8 mg/dL Normal 8.5-10.2 [facility] Comment on above: Order Comment: Speci men Type: BLOOD SPECIMENOrdering Facility: [facility] Address: [address] [place] [address] Performed By: #### 5 0190-8, 38288-1, 6-4 ####[facility] LABCLIA [id number] [place] [address] [place] Chloride [Moles/Vol] 99 mmol/L Normal 98-107 [facility] Comment on above: Order Comment: Speci men Type: BLOOD SPECIMENOrdering Facility: [facility] Address: [address] [place] [address] Performed By: #### 5 0190-8, 38888-9, 6-4 ####[facility] LABCLIA [id number] [place] [id number] [place] CO2 [Moles/Vol] 28 mmol/L Normal 22-30 [facility] Comment on above: Order Comment: Speci men Type: BLOOD SPECIMENOrdering Facility: [facility] Address: [address] [place] [address] Performed By: #### 5 0190-8, 02158-8, 2275-4 ####[facility] LABCLIA [id number] [place] [address] [place] Creatinine [Mass/Vol] 0.91 mg/dL Normal 0.73-1.22 [facility] Comment on above: Order Comment: Speci men Type: BLOOD SPECIMENOrdering Facility: [facility] Address: [address] [place] [address] Performed By: #### 5 0190-8, 22185-2, 2275-06 ####[facility] LABIA [id number] [place] [address] [place] Creatinine and Glomerular filtration rate.predicted panel (S/P/Bld) 92 mL/min/1.73m??? Normal >=60 [facility] Comment on above: Order Comment: Speci men Type: BLOOD SPECIMENOrdering Facility: [facility] Address: [address] [place] [address] Result Comment: Yesica mated Glomerular Filtration Rate [...] actual GFR. Performed By: #### 5 0190-8, 81551-4, 2275-4 ####[facility] LABCLIA [id number] [place] [address] [place] Glucose [Mass/Vol] 120 mg/dL High 74-99 [facility] Comment on above: Order Comment: Speci men Type: BLOOD SPECIMENOrdering Facility: [facility] Address: [address] [place] [address] Result Comment: The [place] Diabetes Association (ADA) provides guidance for cutoff [...] Standards of Medical Care in Diabetes 2016, [place] Diabetes Association. Diabetes Care. 2016.39(Suppl 1). Performed By: #### 5 0190-8, 39435-0, 2275-4 ####[facility] LABIA [id number] [place] [address] [place] Potassium [Moles/Vol] 4.4 mmol/L Normal 3.7-5.1 [facility] Comment on above: Order Comment: Speci men Type: BLOOD SPECIMENOrdering Facility: [facility] Address: [address] [place] [address] Performed By: #### 5 0190-8, 72410-8, 2275-4 ####[facility] [id number] [place] [address] [place] Sodium [Moles/Vol] 138 mmol/L Normal 136-144 [facility] Comment on above: Order Comment: Speci men Type: BLOOD SPECIMENOrdering Facility: [facility] Address: [address] [place] [address] Performed By: #### 5 0190-8, 84281-1, 2275-4 ####[facility] LABCLIA [id number] [address] [place] [address] [place] Urea nitrogen [Mass/Vol] 23 mg/dL Normal 9-24 [facility] Comment on above: Order Comment: Speci men Type: BLOOD SPECIMENOrdering Facility: [facility] Address: [address] [place] [address] Performed By: #### 5 0190-8, 25846-8, 2275-4 ####[facility] LABCLIA [id number] [address] [place] [address] [place] CBC W Auto Differential pane l (Bld)on 05-12-2024 Basophils (Bld) [#/Vol] 0.03 10*3/uL Normal <0.11 [facility] Comment on above: Order Comment: Speci men Type: BLOOD SPECIMENOrdering Facility: [facility] Address: [address] [place] [address] Performed By: #### 5 7021-8 ####[facility] LABCLIA [id number] [place] [address] [place] Basophils/100 WBC (Bld) 0.3 % Normal [facility] Comment on above: Order Comment: Speci men Type: BLOOD SPECIMENOrdering Facility: [facility] Address: [address] [place] [address] Performed By: #### 5 7021-8 ####[facility] LABCLIA [id number] [address] [place] [address] [place] Differential cell count method Nom (Bld) Auto Normal [facility] Comment on above: Order Comment: Speci men Type: BLOOD SPECIMENOrdering Facility: [facility] Address: [address] [place] [address] Performed By: #### 5 7021-8 ####[facility] LABCLIA [id number] [address] [address] [place] Eosinophils (Bld) [#/Vol] 10*3/uL Normal <0.46 [facility] Comment on above: Order Comment: Speci men Type: BLOOD SPECIMENOrdering Facility: [facility] Address: [address] [place] [address] Performed By: #### 5 7021-8 ####[facility] LABCLIA [id number] [facility] AV[facility]UEKAIS[facility] [address], [place] [address] [place] Eosinophils/100 WBC (Bld) 0.1 % Normal [facility] Comment on above: Order Comment: Speci men Type: BLOOD SPECIMENOrdering Facility: [facility] Address: [address] [place] [address] Performed By: #### 5 7021-8 ####[facility] LABIA [id number] [facility] [address], [place] [address] [place] Erythrocyte distribution width (RBC) [Ratio] 12.4 % Normal 11.5-15.0 [facility] Comment on above: Order Comment: Speci men Type: BLOOD SPECIMENOrdering Facility: [facility] Address: [address] [place] [address] Performed By: #### 5 7021-8 ####[facility] LABCLIA [id number] [place] [address] [place] Hematocrit (Bld) [Volume fraction] 45.6 % Normal 39.0-51.0 [facility] Comment on above: Order Comment: Speci men Type: BLOOD SPECIMENOrdering Facility: [facility] Address: [address] [place] [address] Performed By: #### 5 7021-8 ####[facility] LABIA [id number] [place] [address] [place] Hemoglobin (Bld) [Mass/Vol] 14.9 g/dL Normal 13.0-17.0 [facility] Comment on above: Order Comment: Speci men Type: BLOOD SPECIMENOrdering Facility: [facility] Address: [address] [place] [address] Performed By: #### 5 7021-8 ####[facility] LABCLIA [id number] [place] [address] [place] Immature granulocytes (Bld) [#/Vol] 0.11 10*3/uL High <0.10 [facility] Comment on above: Order Comment: Speci men Type: BLOOD SPECIMENOrdering Facility: [facility] Address: [address] [place] [address] Performed By: #### 5 7021-8 ####[facility] LABCLIA [id number] [place] [address] [place] Immature granulocytes/100 WBC (Bld) 1.3 % Normal [facility] Comment on above: Order Comment: Speci men Type: BLOOD SPECIMENOrdering Facility: [facility] Address: [address] [place] [address] Performed By: #### 5 7021-8 ####[facility] LABCLIA [id number] [place] [address] [place] Lymphocytes (Bld) [#/Vol] 0.83 10*3/uL Low 1.00-4.00 [facility] Comment on above: Order Comment: Speci men Type: BLOOD SPECIMENOrdering Facility: [facility] Address: [address] [place] [address] Performed By: #### 5 7021-8 ####[facility] LABCLIA [id number] [place] [address] [place] Lymphocytes/100 WBC (Bld) 9.5 % Normal [facility] Comment on above: Order Comment: Speci men Type: BLOOD SPECIMENOrdering Facility: [facility] Address: [address] [place] [address] Performed By: #### 5 7021-8 ####[facility] LABCLIA [id number] [place] [id number] [place] MCH (RBC) [Entitic mass] 31.0 pg Normal 26.0-34.0 [facility] Comment on above: Order Comment: Speci men Type: BLOOD SPECIMENOrdering Facility: [facility] Address: [address] [place] [address] Performed By: #### 5 7021-8 ####[facility] LABCLIA [id number] [place] [address] [place] MCHC (RBC) [Mass/Vol] 32.7 g/dL Normal 30.5-36.0 [facility] Comment on above: Order Comment: Speci men Type: BLOOD SPECIMENOrdering Facility: [facility] Address: [address] [place] [address] Performed By: #### 5 7021-8 ####[facility] LABCLIA [id number] [place] [address] [place] MCV (RBC) [Entitic vol] 94.8 fL Normal 80.0-100.0 [facility] Comment on above: Order Comment: Speci men Type: BLOOD SPECIMENOrdering Facility: [facility] Address: [address] [place] [address] Performed By: #### 5 7021-8 ####[facility] LABIA [id number] [place] [address] [place] Monocytes (Bld) [#/Vol] 0.26 10*3/uL Normal <0.87 [facility] Comment on above: Order Comment: Speci men Type: BLOOD SPECIMENOrdering Facility: [facility] Address: [address] [place] [address] Performed By: #### 5 7021-8 ####[facility] LABCLIA [id number] [address] [place] Monocytes/100 WBC (Bld) 3.0 % Normal [facility] Comment on above: Order Comment: Speci men Type: BLOOD SPECIMENOrdering Facility: [facility] Address: [address] [place] [address] Performed By: #### 5 7021-8 ####[facility] LABCLIA [id number] [place] [address] [place] Neutrophils (Bld) [#/Vol] 7.47 10*3/uL Normal 1.45-7.50 [facility] Comment on above: Order Comment: Speci men Type: BLOOD SPECIMENOrdering Facility: [facility] Address: [address] [place] [address] Performed By: #### 5 7021-8 ####[facility] LABCLIA [id number] [place] [address] [place] Neutrophils/100 WBC (Bld) 85.8 % Normal [facility] Comment on above: Order Comment: Speci men Type: BLOOD SPECIMENOrdering Facility: [facility] Address: [address] [place] [address] Performed By: #### 5 7021-8 ####[facility] LABCLIA [id number] [place] [address] [place] Nucleated RBC (Bld) [#/Vol] 10*3/uL Normal <0.01 [facility] Comment on above: Order Comment: Speci men Type: BLOOD SPECIMENOrdering Facility: [facility] Address: [address] [place] [address] Performed By: #### 5 7021-8 ####[facility] LABCLIA [id number] [facility] [address], [facility] [place] Nucleated RBC/100 WBC (Bld) [Ratio] 0.0 /100 WBC Normal [facility] Comment on above: Order Comment: Speci men Type: BLOOD SPECIMENOrdering Facility: [facility] Address: [address] [place] [address] Performed By: #### 5 7021-8 ####[facility] LABCLIA [id number] [place] [address] [place] Platelet mean volume (Bld) [Entitic vol] 10.0 fL Normal 9.0-12.7 [facility] Comment on above: Order Comment: Speci men Type: BLOOD SPECIMENOrdering Facility: [facility] Address: [address] [place] [address] Performed By: #### 5 7021-8 ####[facility] LABIA [id number] [place] [address] [place] Platelets (Bld) [#/Vol] 394 10*3/uL Normal 150-400 [facility] Comment on above: Order Comment: Speci men Type: BLOOD SPECIMENOrdering Facility: [facility] Address: [address] [place] [address] Performed By: #### 5 7021-8 ####[facility] LABIA [id number] [place] [address] [place] RBC (Bld) [#/Vol] 4.81 10*6/uL Normal 4.20-6.00 [facility] Comment on above: Order Comment: Speci men Type: BLOOD SPECIMENOrdering Facility: [facility] Address: [address] [place] [address] Performed By: #### 5 7021-8 ####[facility] [id number] [place] [address] [place] WBC (Bld) [#/Vol] 8.71 10*3/uL Normal 3.70-11.00 [facility] Comment on above: Order Comment: Speci men Type: BLOOD SPECIMENOrdering Facility: [facility] Address: [address] [place] [address] Performed By: #### 5 7021-8 ####[facility] LABIA [id number] [place] [address] [place] CNOVon 05-12-2024 CNOV Normal [facility] Ferritin SerPl-mCncon 2024 Ferritin [Mass/Vol] 204.0 ng/mL Normal 30.3-565.7 [facility] Comment on above: Order Comment: Speci men Type: BLOOD SPECIMENOrdering Facility: [facility] Address: [address] [place] [address] Performed By: #### 5 0190-8, 21868-4, 2275- ####[facility] LABCLIA [id number] [place] [address] [place] HISTORY PHYSICALon HISTORY PHYSICAL Normal [facility] Iron and Iron binding capaci ty panelon 05-12-2024 Iron [Mass/Vol] 81 ug/dL Normal 41-186 [facility] Comment on above: Order Comment: Speci men Type: BLOOD SPECIMENOrdering Facility: [facility] Address: [address] [place] [address] Performed By: #### 5 0190-8, 93670-9, 2275-06 ####[facility] LABCLIA [id number] [place] [address] [place] Iron binding capacity [Mass/Vol] 342 ug/dL Normal 232-386 [facility] Comment on above: Order Comment: Speci men Type: BLOOD SPECIMENOrdering Facility: [facility] Address: [address] [place] [address] Performed By: #### 5 0190-8, 48218-0, 2275-06 ####[facility] LABCLIA [id number] [place] [address] [place] Iron/TIBC [Molar ratio] 23.7 % Normal 15.0-57.0 [facility] Comment on above: Order Comment: Speci men Type: BLOOD SPECIMENOrdering Facility: [facility] Address: [address] [place] [address] Performed By: #### 5 0190-8, 32927-6, 2275- ####[facility] LABCLIA [id number] [address] [place] STAPHYLOCOCCUS AUREUS AND MR SA SCREEN, PCR, NASALon 05-12-2024 S. aureus and MRSA panel BARBARA+probe (Nose) Not detected Normal Not Detected [facility] Comment on above: Order Comment: Speci ayad Type: SWABOrdering Facility: [facility] Address: [address] [place] [address] Performed By: #### S APCR ####[facility] LABCLIA [id number] [address] [place] TYPE AND SCREEN,30 DAYon ABO group Nom (Bld) O [facility] Blood group antibody screen Ql Negative [facility] Rh Nom (Bld) Negative [facility] ABO O Normal [facility] Comment on above: Order Comment: Speci men Type: BLOOD SPECIMENOrdering Facility: [facility] Address: [address] [place] [address] Performed By: #### T SCR30 ####[facility] BLOOD BANKIA [id number] [address] [place] Rh Nom (Bld) Negative Normal [facility] Comment on above: Order Comment: Speci men Type: BLOOD SPECIMENOrdering Facility: [facility] Address: [address] [place] [address] Performed By: #### T SCR30 ####[facility] BLOOD BANKIA [id number] [place] [address] [place] MR Cervical spine [...] the craniocervical junction. COMMUNICATION: Communicated to ALFONSO LODY on 02/21/2024 5:11 PM via [employer] staff message. Outpatient Services Director: CITLALLI Transcribe Date/Time: Feb 21 2024 4:44P Dictated by : KEVIN MASON MD This examination was interpreted and the report reviewed and electronically signed by: KEVIN MASON MD on Feb 21 2024 8:57PM [facility] DIVISION OF RADIOLOGY * * *Final [...] and facet hypertrophy DIVISION OF RADIOLOGY Provider, [facility] - 02/21/2024 * * *Final [...] ALFONSO LOYD on 02/21/2024 5:11 PM via [employer] staff message. [facility] Transcribe Date/Time: Feb 21 2024 4:44P Dictated by : KEVIN MASON MD This examination was interpreted and the report reviewed and electronically signed by: KEVIN MASON MD on Feb 21 2024 8:57PM EST [facility] Radiology Study observation (narrative) [facility] MR Cervical spine WO contras tOrdered By: Ccf Provider on 02-21-2024 [facility] MRI CERVICAL SPINE WO IVCONo n 02-21-2024 MRI CERVICAL SPINE WO IVCON Normal [facility] CNPNon 02-03-2024 CNPN Normal [facility] CNOVon 01-13-2024 CNOV Normal [facility] CT LUMBAR SPINE WO IVCONon 1 03-14-2023 CT LUMBAR SPINE WO IVCON Normal [facility] CT Lumbar spine WO contrasto n 01-13-2024 IMPRESSION: Interval L4-5 right facetectomy. Stable additional prior postoperative changes as described. Healing fracture along L5 pedicle screws. 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 Anatomic Lumbar Variant: Transitional L5 vertebral body. L4-5 is considered the level of the iliac crest and there are 5 lumbar-type vertebrae. Outpatient Services Director: [facility] Transcribe Date/Time: Jan 13 2024 9:06A Dictated by : MORGAN SANCHEZ MD This examination was interpreted and the report reviewed and electronically signed by: ADALBERTO MAYS MD on Jan 13 2024 11:37AM [facility] DIVISION OF RADIOLOGY * * *Final Report* * * DATE OF EXAM: Jan 13 2024 8:57AM [facility] 0508 - CT [...] vertebrae. Anatomic variant: Transitional L5 vertebral body. Vp Genetic (topogram) images: No additional findings. Alignment: There [...] within normal limits. DIVISION OF RADIOLOGY Provider, [facility] - 01/13/2024 * * *Final Report* * * DATE OF EXAM: Jan 13 2024 8:57AM [facility] 0508 - CT [...] vertebrae. Anatomic variant: Transitional L5 vertebral body. Vp Genetic (topogram) images: No additional findings. Alignment: There [...] crest and there are 5 lumbar-type vertebrae. Outpatient Services Director: CITLALLI Transcribe Date/Time: Jan 13 2024 9:06A Dictated by : MORGAN SANCHEZ MD This examination was interpreted and the report reviewed and electronically signed by: ADALBERTO MAYS MD on Jan 13 2024 11:37AM EST [facility] CT Lumbar spine WO contrastO rdered By: Ccf Provider on 01-13-2024 [facility] EMG(NEURO/NI)on 01-13-2024 Results can be seen in attached scanned documents. If you are a patient reviewing this test result, call the doctor who ordered the test with any questions. [facility] MR Lumbar spine WO contrasto n 01-13-2024 [...] normal in appearance. DIVISION OF RADIOLOGY Provider, Félxi Espinal [facility] - 01/13/2024 * * *Final Report* [...] if clinically judy (more content not included)... [facility] Radiology Study observation (narrative) [facility] MR Thoracic spine WO contras ton 11-05-2024 * * *Final Report* * * DATE [...] normal in appearance. DIVISION OF RADIOLOGY Provider, [facility] - 01/13/2024 * * *Final [...] if clinically a (more content not included)... [facility] MRI LUMBAR SPINE WO IVCONon 01-13-2024 MRI LUMBAR SPINE WO IVCON Invalid Interpretation Code [facility] MRI THORACIC SPINE WO IVCONo n 01-13-2024 MRI THORACIC SPINE WO IVCON Invalid Interpretation Code [facility] No Panel InformationOrdered By: Ccf Provider on 01-13-2024 Interpretation and review of laboratory results Abnormal [facility] Radiology Result ACTIONABLE Abnormal [facility] Comment on above: This report contains [...] contact your provider for the next steps. [facility] No Panel Informationon 01-12 IMPRESSION: * Susceptibility [...] be communicated with the ordering provider via [employer] staff message or phone message by [facility] [employer] within 2 business days of report finalization. --END OF FINDING-- ACTIONABLE RESULT: FOLLOW-UP Acuity: Actionable Findings: Neurological System-SPINE Routing Code: NI_2 Recommendation: Unlisted Recommendation (see report) Time Frame: At the discretion of the clinical team. COMMUNICATION: Results will be communicated with the ordering provider via [employer] staff message or phone message by [facility] within 2 business days of report finalization. --END OF FINDING-- Outpatient Services Director: CITLALLI Transcribe Date/Time: Jan 13 2024 8:57A Dictated by : TWAN SANTO MD This examination was interpreted and the report reviewed and electronically signed by: TWAN SANTO MD on Jan 13 2024 3:52PM [facility] DIVISION OF RADIOLOGY Radiology Study observation (narrative) [facility] Ambulatory Visit Summaryon 1 Ambulatory Visit Summary [...] for choosing us for your care. Paramjit Mcclain [facility] General Surgery Office/Clini c Noteon 12-16-2023 General [...] trivalent - Not Given Patient Refuses Normal [facility] Comment on above: Result Comment: Elec tronically Signed By: VAMSI JERNIGAN, Camryn Rodriguez\.br\Date and Time Signed: 12/16/23 13:13 EDT CNPNon 12-05-2023 CNPN Normal [facility] Balta 11-26-2023 L Specimen: [id number] Received: 11/27/23 Status: CASANDRA Thurman Num: [id number] Spec Type: Surgical Subm Dr: Camryn Agustin MD FACS Tissues: A Colon Biopsy (CECAL COLON POLYP) Procedures: HE/2, Gross/Micro L4 Age/ Patient Sex Location Account Attending Physician Braden Rodriguez 68/M LABELL [id number] Camryn Agustin MD FACS SPEC NUM: [id number] RECD: 11/27/23 STATUS: CASANDRA THURMAN NUM: [id number] KIM: 11/26/23-[address]: Camryn Agustin MD FACS ENTERED: 11/27/[address]: Kale Burt SPEC TYPE: Surgical DEPT: [facility] ENTERED BY: [id number] RECV BY: [id number] ORDERED: HE/2, Gross/Micro L4 ORDERED: Gross/Micro L4 Pathological Diagnosis Cecal polyp: Tubulovillous [...] cassette A1. CPT Codes 88 305 Specimen: [id number] Received: 11/27/23 Status: CASANDRA Thurman Num: [id number] Spec Type: Surgical Subm Dr: Camryn Agustin MD FACS Tissues: A Colon Biopsy (CECAL COLON POLYP) Procedures: ANICETOPaulino, Gross/Micro L4 Patient: Braden Rodriguez [id number] (Continued) Signed (signature on file) Edward Byers MD 12/02/23 1557 Normal [facility] CNOVon 11-12-2023 CNOV Normal [facility] XR LUMBAR 2V AP/LATon 2023 XR LUMBAR 2V AP/LAT Normal [facility] XR Lumbar spine AP and Later dustin 11-12-2023 IMPRESSION: Intact spinal fusion hardware. Vertebral body heights and sagittal alignment are maintained. Outpatient Services Director[facility] Transcribe Date/Time: Nov 12 2023 1:25P Dictated by : LONNIE HERNANDEZ MD This examination was interpreted and the report reviewed and electronically signed by: LONNIE HERNANDEZ MD on Nov 12 2023 1:25PM [facility] DIVISION OF RADIOLOGY * * *Final [...] RESULT: See impression DIVISION OF RADIOLOGY Provider, [facility] Kylie [facility] - 11/12/2023 * * *Final Report* * [...] body heights and sagittal alignment are maintained. Outpatient Services Director: Wor[place] Transcribe Date/Time: Nov 12 2023 1:25P Dictated by : LONNIE HERNANDEZ MD This examination was interpreted and the report reviewed and electronically signed by: LONNIE HERNANDEZ MD on Nov 12 2023 1:25PM EST [facility] Radiology Study observation (narrative) [facility] XR Lumbar spine AP and Later alOrdered By: Ccf Provider on 11-12-2023 [facility] CNPNon 11-05-2023 CNPN Normal [facility] CNPNon 10-16-2023 CNPN Normal [facility] CNCOon 10-06-2023 CNCO Letter Text Normal [facility] Basic metabolic 2000 panelon 10-04-2023 Anion gap [Moles/Vol] 10 mmol/L Normal 8-15 [facility] Comment on above: Order Comment: Speci men Type: BLOOD SPECIMENOrdering Facility: [facility] Address: [address] [place] [address] Performed By: #### 2 4321-2 ####[facility] LABCLIA [id number] [place] [address] [place] Calcium [Mass/Vol] 9.4 mg/dL Normal 8.5-10.2 [facility] Comment on above: Order Comment: Speci men Type: BLOOD SPECIMENOrdering Facility: [facility] Address: [address] [place] [address] Performed By: #### 2 4321-2 ####[facility] LABCLIA [id number] [place] [address] [place] Chloride [Moles/Vol] 104 mmol/L Normal 98-107 [facility] Comment on above: Order Comment: Speci men Type: BLOOD SPECIMENOrdering Facility: [facility] Address: [address] [place] [address] Performed By: #### 2 4321-2 ####[facility] LABCLIA [id number] [place] [address] [place] CO2 [Moles/Vol] 27 mmol/L Normal 22-30 [facility] Comment on above: Order Comment: Speci men Type: BLOOD SPECIMENOrdering Facility: [facility] Address: [address] [place] [address] Performed By: #### 2 4321-2 ####[facility] LABCLIA [id number] [place] [id number] [place] Creatinine [Mass/Vol] 0.83 mg/dL Normal 0.73-1.22 [facility] Comment on above: Order Comment: Speci men Type: BLOOD SPECIMENOrdering Facility: [facility] Address: [address] [place] [address] Performed By: #### 2 4321-2 ####[facility] LABCLIA [id number] [place] [address] [place] Creatinine and Glomerular filtration rate.predicted panel (S/P/Bld) 97 mL/min/1.73m??? Normal >=60 [facility] Comment on above: Order Comment: Speci men Type: BLOOD SPECIMENOrdering Facility: [facility] Address: [address] [place] [address] Result Comment: Yesica mated Glomerular Filtration Rate [...] actual GFR. Performed By: #### 2 4321-2 ####[facility] LABIA [id number] [place] [id number] [place] Glucose [Mass/Vol] 100 mg/dL High 74-99 [facility] Comment on above: Order Comment: Speci men Type: BLOOD SPECIMENOrdering Facility: [facility] Address: [address] [place] [address] Result Comment: The [place] Diabetes Association (ADA) provides guidance for cutoff [...] Standards of Medical Care in Diabetes 2016, [place] [employer] Association. Diabetes Care. 2016.39(Suppl 1). Performed By: #### 2 4321-2 ####[facility] LABCLIA [id number] [place] [address] [place] Potassium [Moles/Vol] 3.9 mmol/L Normal 3.7-5.1 [facility] Comment on above: Order Comment: Speci men Type: BLOOD SPECIMENOrdering Facility: [facility] Address: [address] [place] [address] Performed By: #### 2 4321-2 ####[facility] LABIA [id number] [place] [address] [place] Sodium [Moles/Vol] 141 mmol/L Normal 136-144 [facility] Comment on above: Order Comment: Roberto Carlos lion Type: BLOOD SPECIMENOrdering Facility: [facility] Address: [address] [place] [address] Performed By: #### 2 4321-2 ####[facility] LABIA [id number] [place] [address] [place] Urea nitrogen [Mass/Vol] 15 mg/dL Normal 9-24 [facility] Comment on above: Order Comment: Smitai men Type: BLOOD SPECIMENOrdering Facility: [facility] Address: [address] [place] [address] Performed By: #### 2 4321-2 ####[facility] [id number] [place] [address] [place] CBC panel Auto (Bld)on 10-03 Erythrocyte distribution width (RBC) [Ratio] 12.4 % Normal 11.5-15.0 [facility] Comment on above: Order Comment: Speci men Type: BLOOD SPECIMENOrdering Facility: [facility] Address: [address] [place] [address] Performed By: #### 5 8410-2 ####[facility] [id number] [place] [address] [place] Hematocrit (Bld) [Volume fraction] 37.6 % Low 39.0-51.0 [facility] Comment on above: Order Comment: Speci men Type: BLOOD SPECIMENOrdering Facility: [facility] Address: [address] [place] [address] Performed By: #### 5 8410-2 ####[facility] [id number] [place] [address] [place] Hemoglobin (Bld) [Mass/Vol] 12.1 g/dL Low 13.0-17.0 [facility] Comment on above: Order Comment: Speci men Type: BLOOD SPECIMENOrdering Facility: [facility] Address: [address] [place] [address] Performed By: #### 5 8410-2 ####[facility] [id number] [place] [address] [place] MCH (RBC) [Entitic mass] 32.5 pg Normal 26.0-34.0 [facility] Comment on above: Order Comment: Speci men Type: BLOOD SPECIMENOrdering Facility: [facility] Address: [address] [place] [address] Performed By: #### 5 8410-2 ####[facility] [id number] [place] [address] [place] MCHC (RBC) [Mass/Vol] 32.2 g/dL Normal 30.5-36.0 [facility] Comment on above: Order Comment: Speci men Type: BLOOD SPECIMENOrdering Facility: [facility] Address: [address] [place] [address] Performed By: #### 5 8410-2 ####[facility] [id number] [place] [address] [place] MCV (RBC) [Entitic vol] 101.1 fL High 80.0-100.0 [facility] Comment on above: Order Comment: Speci men Type: BLOOD SPECIMENOrdering Facility: [facility] Address: [address] [place] [address] Performed By: #### 5 8410-2 ####[facility] [id number] [place] [address] [place] Nucleated RBC (Bld) [#/Vol] 10*3/uL Normal <0.01 [facility] Comment on above: Order Comment: Speci men Type: BLOOD SPECIMENOrdering Facility: [facility] Address: [address] [place] [address] Performed By: #### 5 8410-2 ####[facility] [id number] [place] [address] [place] Platelet mean volume (Bld) [Entitic vol] 10.1 fL Normal 9.0-12.7 [facility] Comment on above: Order Comment: Speci men Type: BLOOD SPECIMENOrdering Facility: [facility] Address: [address] [place] [address] Performed By: #### 5 8410-2 ####[facility] [id number] [place] [address] [place] Platelets (Bld) [#/Vol] 352 10*3/uL Normal 150-400 [facility] Comment on above: Order Comment: Speci men Type: BLOOD SPECIMENOrdering Facility: [facility] Address: [address] [place] [address] Performed By: #### 5 8410-2 ####[facility] [id number] [place] [address] [place] RBC (Bld) [#/Vol] 3.72 10*6/uL Low 4.20-6.00 [facility] Comment on above: Order Comment: Speci men Type: BLOOD SPECIMENOrdering Facility: [facility] Address: [address] [place] [address] Performed By: #### 5 8410-2 ####[facility] LABCLIA [id number] [place] [address] [place] WBC (Bld) [#/Vol] 10.84 10*3/uL Normal 3.70-11.00 [facility] Comment on above: Order Comment: Speci men Type: BLOOD SPECIMENOrdering Facility: [facility] Address: [address] [place] [address] Performed By: #### 5 8410-2 ####[facility] LABCLIA [id number] [place] [address] [place] THERAPY NTon 10-04-2023 THERAPY NT Normal [facility] Basic metabolic 2000 panelon 10-03-2023 Anion gap [Moles/Vol] 10 mmol/L Normal 8-15 [facility] Comment on above: Order Comment: Speci men Type: BLOOD SPECIMENOrdering Facility: [facility] Address: [address] [place] [address] Performed By: #### 2 4321-2 ####[facility]CLIA [id number] [place] [address] [place] Calcium [Mass/Vol] 9.0 mg/dL Normal 8.5-10.2 [facility] Comment on above: Order Comment: Speci men Type: BLOOD SPECIMENOrdering Facility: [facility] Address: [address] [place] [address] Performed By: #### 2 4321-2 ####[facility]CLIA [id number] [place] [address] [place] Chloride [Moles/Vol] 105 mmol/L Normal 98-107 [facility] Comment on above: Order Comment: Speci men Type: BLOOD SPECIMENOrdering Facility: [facility] Address: [address] [place] [address] Performed By: #### 2 4321-2 ####[facility] LABCLIA [id number] [place] [id number] [place] CO2 [Moles/Vol] 23 mmol/L Normal 22-30 [facility] Comment on above: Order Comment: Speci men Type: BLOOD SPECIMENOrdering Facility: [facility] Address: [address] [place] [address] Performed By: #### 2 4321-2 ####[facility] LABCLIA [id number] [address] STATES OF [facility] Creatinine [Mass/Vol] 0.92 mg/dL Normal 0.73-1.22 [facility] Comment on above: Order Comment: Speci men Type: BLOOD SPECIMENOrdering Facility: [facility] Address: [address] [place] [address] Performed By: #### 2 4321-2 ####[facility] [id number] [address] STATES [facility] Creatinine and Glomerular filtration rate.predicted panel (S/P/Bld) 92 mL/min/1.73m??? Normal >=60 [facility] Comment on above: Order Comment: Speci men Type: BLOOD SPECIMENOrdering Facility: [facility] Address: [address] [place] [address] Result Comment: Yesica mated Glomerular Filtration Rate [...] actual GFR. Performed By: #### 2 4321-2 ####[facility] LABCLIA [id number] [place] [address] [place] Glucose [Mass/Vol] 121 mg/dL High 74-99 [facility] Comment on above: Order Comment: Speci men Type: BLOOD SPECIMENOrdering Facility: [facility] Address: [address] [place] [address] Result Comment: The [place] Diabetes Association (ADA) provides guidance for cutoff [...] Standards of Medical Care in Diabetes 2016, [place] [employer]. Diabetes Care. 2016.39(Suppl 1). Performed By: #### 2 4321-2 ####[facility] LABCLIA [id number] [place] [address] [place] Potassium [Moles/Vol] 4.0 mmol/L Normal 3.7-5.1 [facility] Comment on above: Order Comment: Speci men Type: BLOOD SPECIMENOrdering Facility: [facility] Address: [address] [place] [address] Performed By: #### 2 4321-2 ####[facility]CLIA [id number] [place] [address] [place] Sodium [Moles/Vol] 138 mmol/L Normal 136-144 [facility] Comment on above: Order Comment: Speci men Type: BLOOD SPECIMENOrdering Facility: [facility] Address: [address] [place] [address] Performed By: #### 2 4321-2 ####[facility]CLIA [id number] [place] [address] [place] Urea nitrogen [Mass/Vol] 21 mg/dL Normal 9-24 [facility] Comment on above: Order Comment: Speci men Type: BLOOD SPECIMENOrdering Facility: [facility] Address: [address] [place] [address] Performed By: #### 2 4321-2 ####[facility] LABCLIA [id number] [place] [address] [place] CASE MGT INIT ASSESon 2023 CASE MGT INIT ASSES Normal [facility] CBC panel Auto (Bld)on 10-02 Erythrocyte distribution width (RBC) [Ratio] 11.9 % Normal 11.5-15.0 [facility] Comment on above: Order Comment: Speci men Type: BLOOD SPECIMENOrdering Facility: [facility] Address: [address] [place] [address] Performed By: #### 5 8410-2 ####[facility] [id number] [place] [address] [place] Hematocrit (Bld) [Volume fraction] 35.0 % Low 39.0-51.0 [facility] Comment on above: Order Comment: Speci men Type: BLOOD SPECIMENOrdering Facility: [facility] Address: [address] [place] [address] Performed By: #### 5 8410-2 ####[facility]CLIA [id number] [place] [address] [place] Hemoglobin (Bld) [Mass/Vol] 11.5 g/dL Low 13.0-17.0 [facility] Comment on above: Order Comment: Speci men Type: BLOOD SPECIMENOrdering Facility: [facility] Address: [address] [place] [address] Performed By: #### 5 8410-2 ####[facility]CLIA [id number] [place] [address] [place] MCH (RBC) [Entitic mass] 32.0 pg Normal 26.0-34.0 [facility] Comment on above: Order Comment: Speci men Type: BLOOD SPECIMENOrdering Facility: [facility] Address: [address] [place] [address] Performed By: #### 5 8410-2 ####[facility]CLIA [id number] [place] [address] [place] MCHC (RBC) [Mass/Vol] 32.9 g/dL Normal 30.5-36.0 [facility] Comment on above: Order Comment: Speci men Type: BLOOD SPECIMENOrdering Facility: [facility] Address: [address] [place] [address] Performed By: #### 5 8410-2 ####[facility]CLIA [id number] [place] [address] [place] MCV (RBC) [Entitic vol] 97.5 fL Normal 80.0-100.0 [facility] Comment on above: Order Comment: Speci men Type: BLOOD SPECIMENOrdering Facility: [facility] Address: [address] [place] [address] Performed By: #### 5 8410-2 ####[facility] [id number] [place] [address] [place] Nucleated RBC (Bld) [#/Vol] 10*3/uL Normal <0.01 [facility] Comment on above: Order Comment: Speci men Type: BLOOD SPECIMENOrdering Facility: [facility] Address: [address] [place] [address] Performed By: #### 5 8410-2 ####[facility]CLIA [id number] [place] [address] [place] Platelet mean volume (Bld) [Entitic vol] 10.4 fL Normal 9.0-12.7 [facility] Comment on above: Order Comment: Speci men Type: BLOOD SPECIMENOrdering Facility: [facility] Address: [address] [place] [address] Performed By: #### 5 8410-2 ####[facility] [id number] [place] [address] [place] Platelets (Bld) [#/Vol] 354 10*3/uL Normal 150-400 [facility] Comment on above: Order Comment: Speci men Type: BLOOD SPECIMENOrdering Facility: [facility] Address: [address] [place] [address] Performed By: #### 5 8410-2 ####[facility] [id number] [place] [address] [place] RBC (Bld) [#/Vol] 3.59 10*6/uL Low 4.20-6.00 [facility] Comment on above: Order Comment: Speci men Type: BLOOD SPECIMENOrdering Facility: [facility] Address: [address] [place] [address] Performed By: #### 5 8410-2 ####[facility] [id number] [place] [address] [place] WBC (Bld) [#/Vol] 11.20 10*3/uL High 3.70-11.00 [facility] Comment on above: Order Comment: Speci men Type: BLOOD SPECIMENOrdering Facility: [facility] Address: [address] [place] [address] Performed By: #### 5 8410-2 ####[facility] [id number] [place] [address] [place] CNDSon 10-03-2023 CNDS Normal [facility] THERAPY NTon 10-03-2023 THERAPY NT Normal [facility] THERAPY NT Normal [facility] ANES POSTPROC EVALon 024 ANES POSTPROC EVAL Normal [facility] ANES PRE-OPon 10-02-2023 ANES PRE-OP Normal [facility] BRIEF OP NOTon 10-02-2023 BRIEF OP NOT Normal [facility] OPERATIVE NOon 10-02-2023 OPERATIVE NO Normal [facility] TYPE + SCREENon 10-02-2023 ABO O Normal [facility] Comment on above: Order Comment: Speci men Type: BLOOD SPECIMENOrdering Facility: [facility] Address: [address] [place] [address] Performed By: #### T SCR ####[facility] BANKCLIA [id number] [place] [address] [place] HISTORICAL AB SCR STATUS Negative Normal [facility] Comment on above: Order Comment: Speci men Type: BLOOD SPECIMENOrdering Facility: [facility] Address: [address] [place] [address] Performed By: #### T SCR ####[facility] BANKCLIA [id number] [place] [address] [place] Rh Nom (Bld) Negative Normal [facility] Comment on above: Order Comment: Speci men Type: BLOOD SPECIMENOrdering Facility: [facility] Address: [address] [place] [address] Performed By: #### T SCR ####[facility]LO[facility] BANKCLIA [id number] [place] [address] [place] TYPE AND SCREEN EXPIRATION 10/05/2023 23:59 Normal [facility] Comment on above: Order Comment: Speci men Type: BLOOD SPECIMENOrdering Facility: [facility] Address: [address] [place] [address] Performed By: #### T SCR ####[facility] BLO[facility] BANKCLIA [id number] [place] [address] [place] XR LUMBAR SPECIFY 1Von 10-01 XR LUMBAR SPECIFY 1V [facility] CNNURSEon 09-30-2023 CNNURSE Normal [facility] CNPNon 09-30-2023 CNPN Normal [facility] CNPNon 09-24-2023 CNPN Normal [facility] CNPNon 09-16-2023 CNPN Normal [facility] CNCOon 09-15-2023 CNCO Letter Text Normal [facility] ALLIED HEALTHon 09-10-2023 ALLIED HEALTH Normal [facility] Basic metabolic 2000 panelon 09-10-2023 Anion gap [Moles/Vol] 10 mmol/L Normal 8-15 [facility] Comment on above: Order Comment: Speci men Type: BLOOD SPECIMENOrdering Facility: [facility] Address: [address] [place] [address] Performed By: #### 2 4321-2 ####[facility] LABCLIA [id number] [place] [address] [place] Calcium [Mass/Vol] 9.6 mg/dL Normal 8.5-10.2 [facility] Comment on above: Order Comment: Speci men Type: BLOOD SPECIMENOrdering Facility: [facility] Address: [address] [place], [place] [address] Performed By: #### 2 4321-2 ####[facility]CLIA [id number] [place] [address] [place] Chloride [Moles/Vol] 102 mmol/L Normal 98-107 [facility] Comment on above: Order Comment: Speci men Type: BLOOD SPECIMENOrdering Facility: [facility] Address: [address] [place] [address] Performed By: #### 2 4321-2 ####[facility] LABCLIA [id number] [place] [id number] [place] CO2 [Moles/Vol] 27 mmol/L Normal 22-30 [facility] Comment on above: Order Comment: Speci men Type: BLOOD SPECIMENOrdering Facility: [facility] Address: [address] [place], [place] [address] Performed By: #### 2 4321-2 ####[facility] LABCLIA [id number] [place] [address] [place] Creatinine [Mass/Vol] 0.88 mg/dL Normal 0.73-1.22 [facility] Comment on above: Order Comment: Roberto Carlos lion Type: BLOOD SPECIMENOrdering Facility: [facility] Address: [address] [place] [address] Performed By: #### 2 4321-2 ####[facility] [id number] [place] [address] [place] Creatinine and Glomerular filtration rate.predicted panel (S/P/Bld) 95 mL/min/1.73m??? Normal >=60 [facility] Comment on above: Order Comment: Roberto Carlos lion Type: BLOOD SPECIMENOrdering Facility: [facility] Address: [address] [place] [address] Result Comment: Yesica mated Glomerular Filtration Rate [...] actual GFR. Performed By: #### 2 4321-2 ####[facility] [id number] [place] [address] [place] Glucose [Mass/Vol] 82 mg/dL Normal 74-99 [facility] Comment on above: Order Comment: Roberto Carlos lion Type: BLOOD SPECIMENOrdering Facility: [facility] Address: [address] [place] [address] Result Comment: The [place] Diabetes Association (ADA) provides guidance for cutoff [...] Standards of Medical Care in Diabetes 2016, [place] Diabetes Association. Diabetes Care. 2016.39(Suppl 1). Performed By: #### 2 4321-2 ####[facility] LABCLIA [id number] [place] [address] [place] Potassium [Moles/Vol] 4.3 mmol/L Normal 3.7-5.1 [facility] Comment on above: Order Comment: Speci men Type: BLOOD SPECIMENOrdering Facility: [facility] Address: [address] [place] [address] Performed By: #### 2 4321-2 ####[facility]CLIA [id number] [place] [address] [place] Sodium [Moles/Vol] 139 mmol/L Normal 136-144 [facility] Comment on above: Order Comment: Speci men Type: BLOOD SPECIMENOrdering Facility: [facility] Address: [address] [place] [address] Performed By: #### 2 4321-2 ####[facility] [id number] [place] [address] [place] Urea nitrogen [Mass/Vol] 22 mg/dL Normal 9-24 [facility] Comment on above: Order Comment: Speci men Type: BLOOD SPECIMENOrdering Facility: [facility] Address: [address] [place] [address] Performed By: #### 2 4321-2 ####[facility] [id number] [place] [id number] [place] CASE MANAGEMon 09-10-2023 CASE MANAGEM Normal [facility] CASE MANAGEM Normal [facility] CNDSon 09-10-2023 CNDS Normal [facility] MRI LUMBAR SPINE WO IVCONon 09-10-2023 MRI LUMBAR SPINE WO IVCON Normal [facility] THERAPY NTon 09-10-2023 THERAPY NT Normal [facility] CASE MANAGEMon 09-09-2023 CASE MANAGEM Normal [facility] Magnesium SerPl-mCncon 09-08 Magnesium [Mass/Vol] 2.1 mg/dL Normal 1.7-2.3 [facility] Comment on above: Order Comment: Speci men Type: BLOOD SPECIMENOrdering Facility: [facility] Address: [address] [place] [address] Performed By: #### 1 9123-9, 89037-2 ####[facility] LABCLIA [id number] [place] [address] [place] Renal function 2000 panelon 09-09-2023 Albumin [Mass/Vol] 3.9 g/dL Normal 3.9-4.9 [facility] Comment on above: Order Comment: Speci men Type: BLOOD SPECIMENOrdering Facility: [facility] Address: [address] [place] [address] Performed By: #### 1 9123-9, 15023-5 ####[facility] LABCLIA [id number] [place] [address] [place] Anion gap [Moles/Vol] 13 mmol/L Normal 8-15 [facility] Comment on above: Order Comment: Speci men Type: BLOOD SPECIMENOrdering Facility: [facility] Address: [address] [place] [address] Performed By: #### 1 9123-9, 11030-0 ####[facility] [id number] [place] [id number] [place] Calcium [Mass/Vol] 9.7 mg/dL Normal 8.5-10.2 [facility] Comment on above: Order Comment: Speci men Type: BLOOD SPECIMENOrdering Facility: [facility] Address: [address] [place] [address] Performed By: #### 1 9123-9, 59517-0 ####[facility]CLIA [id number] [place] [id number] [place] Chloride [Moles/Vol] 101 mmol/L Normal 98-107 [facility] Comment on above: Order Comment: Speci men Type: BLOOD SPECIMENOrdering Facility: [facility] Address: [address] [place] [address] Performed By: #### 1 9123-9, 14552-6 ####[facility]CLIA [id number] [place] [address] [place] CO2 [Moles/Vol] 25 mmol/L Normal 22-30 [facility] Comment on above: Order Comment: Speci men Type: BLOOD SPECIMENOrdering Facility: [facility] Address: [address] [place] [address] Performed By: #### 1 9123-9, 44203-1 ####[facility]CLIA [id number] [place] [address] [place] Creatinine [Mass/Vol] 0.99 mg/dL Normal 0.73-1.22 [facility] Comment on above: Order Comment: Speci men Type: BLOOD SPECIMENOrdering Facility: [facility] Address: [address] [place] [address] Performed By: #### 1 9123-9, 38246-1 ####[facility] [id number] [place] [address] [place] Creatinine and Glomerular filtration rate.predicted panel (S/P/Bld) 84 mL/min/1.73m??? Normal >=60 [facility] Comment on above: Order Comment: Speci men Type: BLOOD SPECIMENOrdering Facility: [facility] Address: [address] [place] [address] Result Comment: Yesica mated Glomerular Filtration Rate [...] actual GFR. Performed By: #### 1 9123-9, 63009-6 ####[facility] LABCLIA [id number] [address] [address] [place] Glucose [Mass/Vol] 123 mg/dL High 74-99 [facility] Comment on above: Order Comment: Roberto Carlos lion Type: BLOOD SPECIMENOrdering Facility: [facility] Address: [address] [place] [address] Result Comment: The [place] Diabetes Association (ADA) provides guidance for cutoff [...] Standards of Medical Care in Diabetes 2016, [place] Diabetes Association. Diabetes Care. 2016.39(Suppl 1). Performed By: #### 1 9123-9, 46884-7 ####[facility] LABCLIA [id number] [address] [address] [place] Phosphate [Mass/Vol] 3.3 mg/dL Normal 2.7-4.8 [facility] Comment on above: Order Comment: Roberto Carlos lion Type: BLOOD SPECIMENOrdering Facility: [facility] Address: [address] [place] [address] Performed By: #### 1 9123-9, 81896-9 ####[facility] LABCLIA [id number] [address] [address] [place] Potassium [Moles/Vol] 4.4 mmol/L Normal 3.7-5.1 [facility] Comment on above: Order Comment: Speci men Type: BLOOD SPECIMENOrdering Facility: [facility] Address: [address] [place] [address] Performed By: #### 1 9123-9, 28859-4 ####[facility] LABCLIA [id number] [address] [address] [place] Sodium [Moles/Vol] 139 mmol/L Normal 136-144 [facility] Comment on above: Order Comment: Speci men Type: BLOOD SPECIMENOrdering Facility: [facility] Address: [address] [place] [address] Performed By: #### 1 9123-9, 27936-1 ####[facility] LABCLIA [id number] [place] [address] [place] Urea nitrogen [Mass/Vol] 25 mg/dL High 9-24 [facility] Comment on above: Order Comment: Speci men Type: BLOOD SPECIMENOrdering Facility: [facility] Address: [address] [place] [address] Performed By: #### 1 9123-9, 14339-1 ####[facility] LABIA [id number] [place] [id number] [place] THERAPY NTon 09-09-2023 THERAPY NT Normal [facility] THERAPY NT Normal [facility] CASE MGT INIT ASSESon 2023 CASE MGT INIT ASSES Normal [facility] ED PROV NOTEon 09-08-2023 ED PROV NOTE Normal [facility] HISTORY PHYSICALon HISTORY PHYSICAL Normal [facility] CBC W Auto Differential pane l (Bld)on 09-07-2023 Basophils (Bld) [#/Vol] 0.00 10*3/uL Normal <0.11 [facility] Comment on above: Order Comment: Speci men Type: BLOOD SPECIMENOrdering Facility: [facility] Address: [address] [place] [address] Performed By: #### 5 7021-8, 4536-7 ####[facility] LABCLIA [id number] [place] [address] [place] Basophils/100 WBC (Bld) 0.0 % Normal [facility] Comment on above: Order Comment: Speci men Type: BLOOD SPECIMENOrdering Facility: [facility] Address: [address] [place] [address] Performed By: #### 5 7021-8, 7 ####[facility]CLIA [id number] [place] [address] [place] Differential cell count method Nom (Bld) Manual Normal [facility] Comment on above: Order Comment: Speci men Type: BLOOD SPECIMENOrdering Facility: [facility] Address: [address] [place] [address] Performed By: #### 5 7021-8, 7 ####[facility] LABCLIA [id number] [place] [address] [place] Eosinophils (Bld) [#/Vol] 0.00 10*3/uL Normal <0.46 [facility] Comment on above: Order Comment: Speci men Type: BLOOD SPECIMENOrdering Facility: [facility] Address: [address] [place] [address] Performed By: #### 5 7021-8, 7 ####[facility] LABCLIA [id number] [place] [address] [place] Eosinophils/100 WBC (Bld) 0.0 % Normal [facility] Comment on above: Order Comment: Speci men Type: BLOOD SPECIMENOrdering Facility: [facility] Address: [address] [place] [address] Performed By: #### 5 7021-8, 4536-7 ####[facility]CLIA [id number] [place] [address] [place] Erythrocyte distribution width (RBC) [Ratio] 13.3 % Normal 11.5-15.0 [facility] Comment on above: Order Comment: Speci men Type: BLOOD SPECIMENOrdering Facility: [facility] Address: [address] [place] [address] Performed By: #### 5 7021-8, 7-7 ####[facility] LABCLIA [id number] [place] [address] [place] Hematocrit (Bld) [Volume fraction] 38.1 % Low 39.0-51.0 [facility] Comment on above: Order Comment: Speci men Type: BLOOD SPECIMENOrdering Facility: [facility] Address: [address] [place] [address] Performed By: #### 5 7021-8, 7-7 ####[facility]CLIA [id number] [place] [address] [place] Hemoglobin (Bld) [Mass/Vol] 12.5 g/dL Low 13.0-17.0 [facility] Comment on above: Order Comment: Speci men Type: BLOOD SPECIMENOrdering Facility: [facility] Address: [address] [place] [address] Performed By: #### 5 7021-8, 4536-7 ####[facility]CLIA [id number] [place] [address] [place] Lymphocytes (Bld) [#/Vol] 1.64 10*3/uL Normal 1.00-4.00 [facility] Comment on above: Order Comment: Speci men Type: BLOOD SPECIMENOrdering Facility: [facility] Address: [address] [place] [address] Performed By: #### 5 7021-8, 4536-7 ####[facility]CLIA [id number] [place] [address] [place] Lymphocytes/100 WBC (Bld) 12.2 % Normal [facility] Comment on above: Order Comment: Speci men Type: BLOOD SPECIMENOrdering Facility: [facility] Address: [address] [place] [address] Performed By: #### 5 7021-8, 4537-7 ####[facility]CLIA [id number] [place] [address] [place] MCH (RBC) [Entitic mass] 32.6 pg Normal 26.0-34.0 [facility] Comment on above: Order Comment: Speci men Type: BLOOD SPECIMENOrdering Facility: [facility] Address: [address] [place] [address] Performed By: #### 5 7021-8, 4537-7 ####[facility]CLIA [id number] [place] [address] [place] MCHC (RBC) [Mass/Vol] 32.8 g/dL Normal 30.5-36.0 [facility] Comment on above: Order Comment: Speci men Type: BLOOD SPECIMENOrdering Facility: [facility] Address: [address] [place] [address] Performed By: #### 5 7021-8, 4537-7 ####[facility]CLIA [id number] [place] [address] [place] MCV (RBC) [Entitic vol] 99.2 fL Normal 80.0-100.0 [facility] Comment on above: Order Comment: Speci men Type: BLOOD SPECIMENOrdering Facility: [facility] Address: [address] [place] [address] Performed By: #### 5 7021-8, 4537-7 ####[facility]CLIA [id number] [place] [address] [place] Monocytes (Bld) [#/Vol] 1.40 10*3/uL High <0.87 [facility] Comment on above: Order Comment: Speci men Type: BLOOD SPECIMENOrdering Facility: [facility] Address: [address] [place] [address] Performed By: #### 5 7021-8, 7-7 ####[facility]CLIA [id number] [place] [address] [place] Monocytes/100 WBC (Bld) 10.4 % Normal [facility] Comment on above: Order Comment: Speci men Type: BLOOD SPECIMENOrdering Facility: [facility] Address: [address] [place] [address] Performed By: #### 5 7021-8, 4536-7 ####[facility]CLIA [id number] [place] [address] [place] Neutrophils (Bld) [#/Vol] 10.39 10*3/uL High 1.45-7.50 [facility] Comment on above: Order Comment: Speci men Type: BLOOD SPECIMENOrdering Facility: [facility] Address: [address] [place] [address] Performed By: #### 5 7021-8, 4536-7 ####[facility]CLIA [id number] [place] [address] [place] Neutrophils/100 WBC (Bld) 77.4 % Normal [facility] Comment on above: Order Comment: Speci men Type: BLOOD SPECIMENOrdering Facility: [facility] Address: [address] [place] [address] Performed By: #### 5 7021-8, 4536-7 ####[facility]CLIA [id number] [place] [address] [place] Nucleated RBC (Bld) [#/Vol] 10*3/uL Normal <0.01 [facility] Comment on above: Order Comment: Speci men Type: BLOOD SPECIMENOrdering Facility: [facility] Address: [address] [place] [address] Performed By: #### 5 7021-8, 4536-7 ####[facility]CLIA [id number] [place] [address] [place] Nucleated RBC/100 WBC (Bld) [Ratio] 0.0 /100 WBC Normal [facility] Comment on above: Order Comment: Speci men Type: BLOOD SPECIMENOrdering Facility: [facility] Address: [address] [place] [address] Performed By: #### 5 7021-8, 7-7 ####[facility] LABIA [id number] [place] [address] [place] Platelet mean volume (Bld) [Entitic vol] 9.9 fL Normal 9.0-12.7 [facility] Comment on above: Order Comment: Speci men Type: BLOOD SPECIMENOrdering Facility: [facility] Address: [address] [place] [address] Performed By: #### 5 7021-8, 4536-7 ####[facility] LABIA [id number] [place] [address] [place] Platelets (Bld) [#/Vol] 285 10*3/uL Normal 150-400 [facility] Comment on above: Order Comment: Speci men Type: BLOOD SPECIMENOrdering Facility: [facility] Address: [address] [place] [address] Performed By: #### 5 7021-8, 4536-7 ####[facility] LABIA [id number] [place] [address] [place] Platelets Estimate (Bld) [#/Vol] Adequate Normal [facility] Comment on above: Order Comment: Speci men Type: BLOOD SPECIMENOrdering Facility: [facility] Address: [address] [place] [address] Performed By: #### 5 7021-8, 7-7 ####[facility] LABIA [id number] [place] [address] [place] RBC (Bld) [#/Vol] 3.84 10*6/uL Low 4.20-6.00 [facility] Comment on above: Order Comment: Speci men Type: BLOOD SPECIMENOrdering Facility: [facility] Address: [address] [place] [address] Performed By: #### 5 7021-8, 4537-7 ####[facility] LABCLIA [id number] [place] [address] [place] RED CELL MORPH Reviewed: unremarkable Normal [facility] Comment on above: Order Comment: Speci men Type: BLOOD SPECIMENOrdering Facility: [facility] Address: [address] [place] [address] Performed By: #### 5 7021-8, 4537-7 ####[facility] LABCLIA [id number] [place] [address] [place] WBC (Bld) [#/Vol] 13.43 10*3/uL High 3.70-11.00 [facility] Comment on above: Order Comment: Speci men Type: BLOOD SPECIMENOrdering Facility: [facility] Address: [address] [place] [address] Performed By: #### 5 7021-8, 4537-7 ####[facility] LABCLIA [id number] [place] [address] [place] CONSULTon 09-07-2023 CONSULT Normal [facility] CRP SerPl-mCncon 09-07-2023 CRP [Mass/Vol] mg/L Normal <0.9 [facility] Comment on above: Order Comment: Speci men Type: BLOOD SPECIMENOrdering Facility: [facility] Address: [address] [place] [address] Performed By: #### 2 4323-8, 1987-, 01932-5, 36549-1 ####[facility] LABCLIA [id number] [place] [address] [place] LUMBAR SPINE WO IVCONon 0 6-30-2024 CT LUMBAR SPINE WO IVCON Normal [facility] Comprehensive metabolic 2000 panelon 09-07-2023 Albumin [Mass/Vol] 4.0 g/dL Normal 3.9-4.9 [facility] Comment on above: Order Comment: Speci men Type: BLOOD SPECIMENOrdering Facility: [facility] Address: [address] [place] [address] Performed By: #### 2 432-8, 1987-07, , ####[facility] LABCLIA [id number] [address] [address] [place] ALP [Catalytic activity/Vol] 136 U/L High 38-113 [facility] Comment on above: Order Comment: Speci men Type: BLOOD SPECIMENOrdering Facility: [facility] Address: [address] [place] [address] Performed By: #### 2 4328, 1987-07, , ####[facility] LABCLIA [id number] [place] [id number] [place] ALT [Catalytic activity/Vol] 20 U/L Normal 10-54 [facility] Comment on above: Order Comment: Speci men Type: BLOOD SPECIMENOrdering Facility: [facility] Address: [address] [place] [address] Performed By: #### 2 4328, 1987-07, , 14535-6 ####[facility] LABCLIA [id number] [address] [address] [place] Anion gap [Moles/Vol] 10 mmol/L Normal 8-15 [facility] Comment on above: Order Comment: Speci men Type: BLOOD SPECIMENOrdering Facility: [facility] Address: [address] [place] [address] Performed By: #### 2 4328, 1987-07, , 18701-6 ####[facility] LABCLIA [id number] [place] [id number] [place] AST [Catalytic activity/Vol] 19 U/L Normal 14-40 [facility] Comment on above: Order Comment: Speci men Type: BLOOD SPECIMENOrdering Facility: [facility] Address: [address] [place] [address] Performed By: #### 2 4323-8, 1987-07, , 13236-0 ####[facility] LABCLIA [id number] [place] [address] [place] Bilirubin [Mass/Vol] 0.6 mg/dL Normal 0.2-1.3 [facility] Comment on above: Order Comment: Speci men Type: BLOOD SPECIMENOrdering Facility: [facility] Address: [address] [place] [address] Performed By: #### 2 432-8, 1987-07, , 98796-1 ####[facility] LABCLIA [id number] [place] [address] [place] Calcium [Mass/Vol] 9.7 mg/dL Normal 8.5-10.2 [facility] Comment on above: Order Comment: Speci men Type: BLOOD SPECIMENOrdering Facility: [facility] Address: [address] [place] [address] Performed By: #### 2 43238, 1987-07, , 31735-8 ####[facility] LABCLIA [id number] [place] [id number] [place] Chloride [Moles/Vol] 105 mmol/L Normal 98-107 [facility] Comment on above: Order Comment: Speci men Type: BLOOD SPECIMENOrdering Facility: [facility] Address: [address] [place] [address] Performed By: #### 2 4323-8, 1987-07, , 30550-9 ####[facility] LABCLIA [id number] [place] [id number] [place] CO2 [Moles/Vol] 26 mmol/L Normal 22-30 [facility] Comment on above: Order Comment: Speci men Type: BLOOD SPECIMENOrdering Facility: [facility] Address: [address] [place] [address] Performed By: #### 2 4323-8, 1987-07, , 02469-4 ####[facility] LABCLIA [id number] [place] [id number] [place] Creatinine [Mass/Vol] 0.93 mg/dL Normal 0.73-1.22 [facility] Comment on above: Order Comment: Speci men Type: BLOOD SPECIMENOrdering Facility: [facility] Address: [address] [place] [address] Performed By: #### 2 4328, 1987-07, , ####[facility] LABIA [id number] [place] [address] [place] Creatinine and Glomerular filtration rate.predicted panel (S/P/Bld) 91 mL/min/1.73m??? Normal >=60 [facility] Comment on above: Order Comment: Speci men Type: BLOOD SPECIMENOrdering Facility: [facility] Address: [address] [place] [address] Result Comment: Yesica mated Glomerular Filtration Rate [...] reflect actual GFR. Performed By: #### 2 4323-8, 1987-07, , 94779-8 ####[facility] LABCLIA [id number] [place] [id number] [place] Glucose [Mass/Vol] 90 mg/dL Normal 74-99 [facility] Comment on above: Order Comment: Speci men Type: BLOOD SPECIMENOrdering Facility: [facility] Address: [address] [place] [address] Result Comment: The [place] Diabetes Association (ADA) provides guidance for cutoff [...] Standards of Medical Care in Diabetes 2016, [place] [employer]. Diabetes Care. 2016.39(Suppl 1). Performed By: #### 2 43238, 1987-07, , 41916-3 ####[facility] LABCLIA [id number] [place] [address] [place] Potassium [Moles/Vol] 3.8 mmol/L Normal 3.7-5.1 [facility] Comment on above: Order Comment: Speci men Type: BLOOD SPECIMENOrdering Facility: [facility] Address: [address] [place] [address] Performed By: #### 2 43238, , 78372-1 ####[facility] LABCLIA [id number] [place] [id number] [place] Protein [Mass/Vol] 6.0 g/dL Low 6.3-8.0 [facility] Comment on above: Order Comment: Speci men Type: BLOOD SPECIMENOrdering Facility: [facility] Address: [address] [place] [address] Performed By: #### 2 4328, 1987-07, , 27928-1 ####[facility] LABCLIA [id number] [place] [id number] [place] Sodium [Moles/Vol] 141 mmol/L Normal 136-144 [facility] Comment on above: Order Comment: Speci men Type: BLOOD SPECIMENOrdering Facility: [facility] Address: [address] [place], [place] [address] Performed By: #### 2 4323-8, 1987-07, , 55655-7 ####[facility] [id number] [place] [id number] [place] Urea nitrogen [Mass/Vol] 29 mg/dL High 9-24 [facility] Comment on above: Order Comment: Speci men Type: BLOOD SPECIMENOrdering Facility: [facility] Address: [address] [place], [place] [address] Performed By: #### 2 4323-8, 1987-07, , 54802-5 ####[facility] [id number] [place] [id number] [place] ESR Westergren method (Bld) [Velocity]on 09-07-2023 ESR (Bld) [Velocity] 5 mm/h Normal 0-15 [facility] Comment on above: Order Comment: Speci men Type: BLOOD SPECIMENOrdering Facility: [facility] Address: [address] [place] [address] Performed By: #### 5 7021-8, 4537-7 ####[facility] [id number] [place] [id number] [place] Magnesium SerPl-mCncon 09-06 Magnesium [Mass/Vol] 2.1 mg/dL Normal 1.7-2.3 [facility] Comment on above: Order Comment: Speci men Type: BLOOD SPECIMENOrdering Facility: [facility] Address: [address] [place] [address] Performed By: #### 2 4323-8, 1987-07, , ####[facility] LABCLIA [id number] [place] [address] [place] NT-proBNP SerPl-mCncon 09-06 Natriuretic peptide.B prohormone N-Terminal [Mass/Vol] 153 pg/mL High <125 [facility] Comment on above: Order Comment: Speci men Type: BLOOD SPECIMENOrdering Facility: [facility] Address: [address] [place] [address] Performed By: #### 2 4323-8, 1987-, , ####[facility] LABIA [id number] [place] [address] [place] B[place] US DVT LOWER BILon US DVT LOWER JAYDON Normal [facility] Urinalysis complete panel (U )on 09-07-2023 Bacteria LM.HPF (Urine sed) [#/Area] Negative Normal Negative [facility] Comment on above: Order Comment: Speci men Type: URINE SPECIMENOrdering Facility: [facility] Address: [address] [place] [address] Performed By: #### 2 4356-8 ####[facility] LABIA [id number] [place] [address] [place] Bilirubin Ql (U) Negative Normal Negative [facility] Comment on above: Order Comment: Speci men Type: URINE SPECIMENOrdering Facility: [facility] Address: [address] [place] [address] Performed By: #### 2 4356-8 ####[facility] LABIA [id number] [place] [address] [place] Clarity (Unsp spec) Clear Normal Clear [facility] Comment on above: Order Comment: Speci men Type: URINE SPECIMENOrdering Facility: [facility] Address: [address] [place] [address] Performed By: #### 2 4356-8 ####[facility] LABCLIA [id number] [place] [address] [place] Color (U) Yellow Normal Yellow [facility] Comment on above: Order Comment: Speci men Type: URINE SPECIMENOrdering Facility: [facility] Address: [address] [place] [address] Performed By: #### 2 4356-8 ####[facility] LABCLIA [id number] [place] [address] [place] Epithelial cells LM.HPF (Urine sed) [#/Area] None Seen Normal [facility] Comment on above: Order Comment: Speci men Type: URINE SPECIMENOrdering Facility: [facility] Address: [address] [place] [address] Performed By: #### 2 4356-8 ####[facility] LABCLIA [id number] [place] [address] [place] Glucose Test strip (U) [Mass/Vol] Negative Normal Negative [facility] Comment on above: Order Comment: Speci men Type: URINE SPECIMENOrdering Facility: [facility] Address: [address] [place] [address] Performed By: #### 2 4356-8 ####[facility] LABCLIA [id number] [place] [address] [place] Hemoglobin Ql (U) Negative Normal Negative [facility] Comment on above: Order Comment: Speci men Type: URINE SPECIMENOrdering Facility: [facility] Address: [address] [place] [address] Performed By: #### 2 4356-8 ####[facility] LABCLIA [id number] [place] [address] [place] Hyaline casts (Urine sed) [#/Area] 0 /[LPF] Normal 0 /LPF [facility] Comment on above: Order Comment: Speci men Type: URINE SPECIMENOrdering Facility: [facility] Address: [address] [place] [address] Performed By: #### 2 4356-8 ####[facility] LABCLIA [id number] [place] [address] [place] Ketones Ql (U) Negative Normal Negative [facility] Comment on above: Order Comment: Speci men Type: URINE SPECIMENOrdering Facility: [facility] Address: [address] [place] [address] Performed By: #### 2 4356-8 ####[facility]CLIA [id number] [place] [address] [place] Leukocyte esterase Test strip Ql (U) Negative Normal Negative [facility] Comment on above: Order Comment: Speci men Type: URINE SPECIMENOrdering Facility: [facility] Address: [address] [place] [address] Performed By: #### 2 4356-8 ####[facility]CLIA [id number] [place] [address] [place] Nitrite Ql (U) Negative Normal Negative [facility] Comment on above: Order Comment: Speci men Type: URINE SPECIMENOrdering Facility: [facility] Address: [address] [place] [address] Performed By: #### 2 4356-8 ####[facility] LABCLIA [id number] [place] [address] [place] pH (U) 7.0 [pH] Normal <8.5 [facility] Comment on above: Order Comment: Speci men Type: URINE SPECIMENOrdering Facility: [facility] Address: [address] [place] [address] Performed By: #### 2 4356-8 ####[facility] LABCLIA [id number] [place] [address] [place] Protein (U) [Mass/Vol] Negative Normal Negative [facility] Comment on above: Order Comment: Speci men Type: URINE SPECIMENOrdering Facility: [facility] Address: [address] [place] [address] Performed By: #### 2 4356-8 ####[facility] [id number] [place] [address] [place] RBC LM.HPF (Urine sed) [#/Area] 0-2 /HPF Normal 0-2 /HPF [facility] Comment on above: Order Comment: Speci men Type: URINE SPECIMENOrdering Facility: [facility] Address: [address] [place] [address] Performed By: #### 2 4356-8 ####[facility] [id number] [place] [address] [place] Specific gravity (U) [Rel density] 1.007 Normal 1.005-1.030 [facility] Comment on above: Order Comment: Speci men Type: URINE SPECIMENOrdering Facility: [facility] Address: [address] [place] [address] Performed By: #### 2 4356-8 ####[facility] [id number] [place] [address] [place] Urobilinogen Ql (U) 0.2 EU/dL Normal 0.2-1.0 EU/dL [facility] Comment on above: Order Comment: Speci men Type: URINE SPECIMENOrdering Facility: [facility] Address: [address] [place] [address] Performed By: #### 2 4356-8 ####[facility] [id number] [place] [address] [place] WBC LM.HPF (Urine sed) [#/Area] 0-5 /HPF Normal 0-5 /HPF [facility] Comment on above: Order Comment: Speci men Type: URINE SPECIMENOrdering Facility: [facility] Address: [address] [place] [address] Performed By: #### 2 4356-8 ####[facility] [id number] [place] [address] [place] XR LUMBAR 3V AP/LAT/L5-S1on 09-07-2023 XR LUMBAR 3V AP/LAT/L5-S1 Normal [facility] CNPNon 09-04-2023 CNPN Normal [facility] CNPNon 08-29-2023 CNPN Normal [facility] CNCOon 08-25-2023 CNCO Letter Text Normal [facility] Basic metabolic 2000 panelon 08-22-2023 Anion gap [Moles/Vol] 9 mmol/L Normal 8-15 [facility] Comment on above: Order Comment: Speci men Type: BLOOD SPECIMENOrdering Facility: [facility] Address: [address] [place] [address] Performed By: #### 2 4321-2 ####[facility] LABCLIA [id number] [place] [address] [place] Calcium [Mass/Vol] 9.4 mg/dL Normal 8.5-10.2 [facility] Comment on above: Order Comment: Speci men Type: BLOOD SPECIMENOrdering Facility: [facility] Address: [address] [place] [address] Performed By: #### 2 4321-2 ####[facility] LABCLIA [id number] [place] [address] [place] Chloride [Moles/Vol] 103 mmol/L Normal 98-107 [facility] Comment on above: Order Comment: Speci men Type: BLOOD SPECIMENOrdering Facility: [facility] Address: [address] [place] [address] Performed By: #### 2 4321-2 ####[facility] LABCLIA [id number] [place] [address] [place] CO2 [Moles/Vol] 26 mmol/L Normal 22-30 [facility] Comment on above: Order Comment: Speci men Type: BLOOD SPECIMENOrdering Facility: [facility] Address: [address] [id number] Performed By: #### 2 4321-2 ####[facility] LABIA [id number] [place] [address] [place] Creatinine [Mass/Vol] 0.77 mg/dL Normal 0.73-1.22 [facility] Comment on above: Order Comment: Speci men Type: BLOOD SPECIMENOrdering Facility: [facility] Address: [address] [place] [address] Performed By: #### 2 4321-2 ####[facility] LABIA [id number] [place] [address] [place] Creatinine and Glomerular filtration rate.predicted panel (S/P/Bld) 99 mL/min/1.73m??? Normal >=60 [facility] Comment on above: Order Comment: Speci men Type: BLOOD SPECIMENOrdering Facility: [facility] Address: [address] [place] [address] Result Comment: Yesica mated Glomerular Filtration Rate [...] actual GFR. Performed By: #### 2 4321-2 ####[facility] LABIA [id number] [place] [address] [place] Glucose [Mass/Vol] 112 mg/dL High 74-99 [facility] Comment on above: Order Comment: Speci men Type: BLOOD SPECIMENOrdering Facility: [facility] Address: [address] [place] [address] Result Comment: The [place] Diabetes Association (ADA) provides guidance for cutoff [...] Standards of Medical Care in Diabetes 2016, [place] Diabetes Association. Diabetes Care. 2016.39(Suppl 1). Performed By: #### 2 4321-2 ####[facility] LABCLIA [id number] [place] [address] [place] Potassium [Moles/Vol] 5.1 mmol/L Normal 3.7-5.1 [facility] Comment on above: Order Comment: Roberto Carlos lion Type: BLOOD SPECIMENOrdering Facility: [facility] Address: [address] [place] [address] Performed By: #### 2 4321-2 ####[facility] LABIA [id number] [place] [address] [place] Sodium [Moles/Vol] 138 mmol/L Normal 136-144 [facility] Comment on above: Order Comment: Roberto Carlos lion Type: BLOOD SPECIMENOrdering Facility: [facility] Address: [address] [place] [address] Performed By: #### 2 4321-2 ####[facility] LABCLIA [id number] [place] [address] [place] Urea nitrogen [Mass/Vol] 16 mg/dL Normal 9-24 [facility] Comment on above: Order Comment: Smitai men Type: BLOOD SPECIMENOrdering Facility: [facility] Address: [address] [place] [address] Performed By: #### 2 4321-2 ####[facility] LABCLIA [id number] [place] [address] [place] CBC panel Auto (Bld)on 08-21 Erythrocyte distribution width (RBC) [Ratio] 13.2 % Normal 11.5-15.0 [facility] Comment on above: Order Comment: Speci men Type: BLOOD SPECIMENOrdering Facility: [facility] Address: [address] [place] [address] Performed By: #### 5 8410-2 ####[facility] LABCLIA [id number] [place] [address] [place] Hematocrit (Bld) [Volume fraction] 34.6 % Low 39.0-51.0 [facility] Comment on above: Order Comment: Speci men Type: BLOOD SPECIMENOrdering Facility: [facility] Address: [address] [place] [address] Performed By: #### 5 8410-2 ####[facility] LABCLIA [id number] [place] [address] [place] Hemoglobin (Bld) [Mass/Vol] 11.6 g/dL Low 13.0-17.0 [facility] Comment on above: Order Comment: Speci men Type: BLOOD SPECIMENOrdering Facility: [facility] Address: [address] [place] [address] Performed By: #### 5 8410-2 ####[facility] LABCLIA [id number] [place] [address] [place] MCH (RBC) [Entitic mass] 31.9 pg Normal 26.0-34.0 [facility] Comment on above: Order Comment: Speci men Type: BLOOD SPECIMENOrdering Facility: [facility] Address: [address] [place] [address] Performed By: #### 5 8410-2 ####[facility] LABCLIA [id number] [place] [address] [place] MCHC (RBC) [Mass/Vol] 33.5 g/dL Normal 30.5-36.0 [facility] Comment on above: Order Comment: Speci men Type: BLOOD SPECIMENOrdering Facility: [facility] Address: [address] [place] [address] Performed By: #### 5 8410-2 ####[facility] LABCLIA [id number] [place] [address] [place] MCV (RBC) [Entitic vol] 95.1 fL Normal 80.0-100.0 [facility] Comment on above: Order Comment: Speci men Type: BLOOD SPECIMENOrdering Facility: [facility] Address: [address] [place] [address] Performed By: #### 5 8410-2 ####[facility] LABIA [id number] [place] [address] [place] Nucleated RBC (Bld) [#/Vol] 10*3/uL Normal <0.01 [facility] Comment on above: Order Comment: Speci men Type: BLOOD SPECIMENOrdering Facility: [facility] Address: [address] [place] [address] Performed By: #### 5 8410-2 ####[facility] LABIA [id number] [place] [address] [place] Platelet mean volume (Bld) [Entitic vol] 9.7 fL Normal 9.0-12.7 [facility] Comment on above: Order Comment: Speci men Type: BLOOD SPECIMENOrdering Facility: [facility] Address: [address] [place] [address] Performed By: #### 5 8410-2 ####[facility] LABCLIA [id number] [place] [address] [place] Platelets (Bld) [#/Vol] 393 10*3/uL Normal 150-400 [facility] Comment on above: Order Comment: Speci men Type: BLOOD SPECIMENOrdering Facility: [facility] Address: [address] [place] [address] Performed By: #### 5 8410-2 ####[facility] LABCLIA [id number] [address] [address] [place] RBC (Bld) [#/Vol] 3.64 10*6/uL Low 4.20-6.00 [facility] Comment on above: Order Comment: Speci men Type: BLOOD SPECIMENOrdering Facility: [facility] Address: [address] [place] [address] Performed By: #### 5 8410-2 ####[facility] [id number] [place] [address] [place] WBC (Bld) [#/Vol] 17.35 10*3/uL High 3.70-11.00 [facility] Comment on above: Order Comment: Speci men Type: BLOOD SPECIMENOrdering Facility: [facility] Address: [address] [place] [address] Performed By: #### 5 8410-2 ####[facility] [id number] [place] [address] [place] CNDSon 08-22-2023 CNDS Normal [facility] THERAPY NTon 08-22-2023 THERAPY NT Normal [facility] Basic metabolic 2000 panelon 08-21-2023 Anion gap [Moles/Vol] 10 mmol/L Normal 8-15 [facility] Comment on above: Order Comment: Speci men Type: BLOOD SPECIMENOrdering Facility: [facility] Address: [address] [place] [address] Performed By: #### 2 4321-2 ####[facility] [id number] [place] [id number] [place] Calcium [Mass/Vol] 9.5 mg/dL Normal 8.5-10.2 [facility] Comment on above: Order Comment: Speci men Type: BLOOD SPECIMENOrdering Facility: [facility] Address: [address] [place] [address] Performed By: #### 2 4321-2 ####[facility] LABCLIA [id number] [place] [address] [place] Chloride [Moles/Vol] 106 mmol/L Normal 98-107 [facility] Comment on above: Order Comment: Speci men Type: BLOOD SPECIMENOrdering Facility: [facility] Address: [address] [place] [address] Performed By: #### 2 4321-2 ####[facility] LABIA [id number] [place] [address] [place] CO2 [Moles/Vol] 22 mmol/L Normal 22-30 [facility] Comment on above: Order Comment: Speci men Type: BLOOD SPECIMENOrdering Facility: [facility] Address: [address] [place] [address] Performed By: #### 2 4321-2 ####[facility] LABIA [id number] [place] [address] [place] Creatinine [Mass/Vol] 0.84 mg/dL Normal 0.73-1.22 [facility] Comment on above: Order Comment: Speci men Type: BLOOD SPECIMENOrdering Facility: [facility] Address: [address] [place] [address] Performed By: #### 2 4321-2 ####[facility] LABIA [id number] [address] [place] Creatinine and Glomerular filtration rate.predicted panel (S/P/Bld) 96 mL/min/1.73m??? Normal >=60 [facility] Comment on above: Order Comment: Speci men Type: BLOOD SPECIMENOrdering Facility: [facility] Address: [address] [place] [address] Result Comment: Yesica mated Glomerular Filtration Rate [...] actual GFR. Performed By: #### 2 4321-2 ####[facility] LABIA [id number] [place] [address] [place] Glucose [Mass/Vol] 140 mg/dL High 74-99 [facility] Comment on above: Order Comment: Roberto Carlos lion Type: BLOOD SPECIMENOrdering Facility: [facility] Address: [address] [place] [address] Result Comment: The [place] Diabetes Association (ADA) provides guidance for cutoff [...] Standards of Medical Care in Diabetes 2016, [place] Diabetes Association. Diabetes Care. 2016.39(Suppl 1). Performed By: #### 2 4321-2 ####[facility] LABIA [id number] [place] [address] [place] Potassium [Moles/Vol] 4.4 mmol/L Normal 3.7-5.1 [facility] Comment on above: Order Comment: Roberto Carlos lion Type: BLOOD SPECIMENOrdering Facility: [facility] Address: [address] [place] [address] Performed By: #### 2 4321-2 ####[facility] LABIA [id number] [place] [address] [place] Sodium [Moles/Vol] 138 mmol/L Normal 136-144 [facility] Comment on above: Order Comment: Roberto Carlos lion Type: BLOOD SPECIMENOrdering Facility: [facility] Address: [address] [place] [address] Performed By: #### 2 4321-2 ####[facility] LABCLIA [id number] [place] [address] [place] Urea nitrogen [Mass/Vol] 14 mg/dL Normal 9-24 [facility] Comment on above: Order Comment: Speci men Type: BLOOD SPECIMENOrdering Facility: [facility] Address: [address] [place] [address] Performed By: #### 2 4321-2 ####[facility] LABCLIA [id number] [place] [id number] [place] CASE MANAGEMon 08-21-2023 CASE MANAGEM Normal [facility] CBC panel Auto (Bld)on 08-20 Erythrocyte distribution width (RBC) [Ratio] 13.1 % Normal 11.5-15.0 [facility] Comment on above: Order Comment: Speci men Type: BLOOD SPECIMENOrdering Facility: [facility] Address: [address] [place] [address] Performed By: #### 5 8410-2 ####[facility] LABIA [id number] [place] [address] [place] Hematocrit (Bld) [Volume fraction] 34.2 % Low 39.0-51.0 [facility] Comment on above: Order Comment: Speci men Type: BLOOD SPECIMENOrdering Facility: [facility] Address: [address] [place] [address] Performed By: #### 5 8410-2 ####[facility] LABIA [id number] [place] [id number] [place] Hemoglobin (Bld) [Mass/Vol] 11.6 g/dL Low 13.0-17.0 [facility] Comment on above: Order Comment: Speci men Type: BLOOD SPECIMENOrdering Facility: [facility] Address: [address] [place] [address] Performed By: #### 5 8410-2 ####[facility] LABIA [id number] [place] [address] [place] MCH (RBC) [Entitic mass] 31.7 pg Normal 26.0-34.0 [facility] Comment on above: Order Comment: Speci men Type: BLOOD SPECIMENOrdering Facility: [facility] Address: [address] [place] [address] Performed By: #### 5 8410-2 ####[facility] LABIA [id number] [place] [address] [place] MCHC (RBC) [Mass/Vol] 33.9 g/dL Normal 30.5-36.0 [facility] Comment on above: Order Comment: Speci men Type: BLOOD SPECIMENOrdering Facility: [facility] Address: [address] [place] [address] Performed By: #### 5 8410-2 ####[facility] [id number] [place] [address] [place] MCV (RBC) [Entitic vol] 93.4 fL Normal 80.0-100.0 [facility] Comment on above: Order Comment: Speci men Type: BLOOD SPECIMENOrdering Facility: [facility] Address: [address] [place] [address] Performed By: #### 5 8410-2 ####[facility] [id number] [place] [address] [place] Nucleated RBC (Bld) [#/Vol] 10*3/uL Normal <0.01 [facility] Comment on above: Order Comment: Speci men Type: BLOOD SPECIMENOrdering Facility: [facility] Address: [address] [place] [address] Performed By: #### 5 8410-2 ####[facility] [id number] [place] [address] [place] Platelet mean volume (Bld) [Entitic vol] 9.3 fL Normal 9.0-12.7 [facility] Comment on above: Order Comment: Speci men Type: BLOOD SPECIMENOrdering Facility: [facility] Address: [address] [place] [address] Performed By: #### 5 8410-2 ####[facility] LABCLIA [id number] [place] [address] [place] Platelets (Bld) [#/Vol] 324 10*3/uL Normal 150-400 [facility] Comment on above: Order Comment: Speci men Type: BLOOD SPECIMENOrdering Facility: [facility] Address: [address] [place] [address] Performed By: #### 5 8410-2 ####[facility] LABIA [id number] [place] [address] [place] RBC (Bld) [#/Vol] 3.66 10*6/uL Low 4.20-6.00 [facility] Comment on above: Order Comment: Speci men Type: BLOOD SPECIMENOrdering Facility: [facility] Address: [address] [place] [address] Performed By: #### 5 8410-2 ####[facility] LABIA [id number] [place] [address] [place] WBC (Bld) [#/Vol] 13.46 10*3/uL High 3.70-11.00 [facility] Comment on above: Order Comment: Speci men Type: BLOOD SPECIMENOrdering Facility: [facility] Address: [address] [place] [address] Performed By: #### 5 8410-2 ####[facility] LABCLIA [id number] [place] [id number] [place] THERAPY NTon 08-21-2023 THERAPY NT Normal [facility] THERAPY NT Normal [facility] THERAPY NT Normal [facility] XR LUMBAR 2V AP/LATon 2023 XR LUMBAR 2V AP/LAT Normal [facility] Basic metabolic 2000 panelon 08-20-2023 Anion gap [Moles/Vol] 11 mmol/L Normal 8-15 [facility] Comment on above: Order Comment: Speci men Type: BLOOD SPECIMENOrdering Facility: [facility] Address: [address] [place] [address] Performed By: #### 2 4321-2 ####[facility] LABCLIA [id number] [place] [address] [place] Calcium [Mass/Vol] 9.3 mg/dL Normal 8.5-10.2 [facility] Comment on above: Order Comment: Speci men Type: BLOOD SPECIMENOrdering Facility: [facility] Address: [address] [place] [address] Performed By: #### 2 4321-2 ####[facility] LABCLIA [id number] [place] [address] [place] Chloride [Moles/Vol] 105 mmol/L Normal 98-107 [facility] Comment on above: Order Comment: Speci men Type: BLOOD SPECIMENOrdering Facility: [facility] Address: [address] [place] [address] Performed By: #### 2 4321-2 ####[facility] LABCLIA [id number] [place] [address] [place] CO2 [Moles/Vol] 24 mmol/L Normal 22-30 [facility] Comment on above: Order Comment: Speci men Type: BLOOD SPECIMENOrdering Facility: [facility] Address: [address] [place] [address] Performed By: #### 2 4321-2 ####[facility] LABCLIA [id number] [place] [address] [place] Creatinine [Mass/Vol] 0.86 mg/dL Normal 0.73-1.22 [facility] Comment on above: Order Comment: Speci men Type: BLOOD SPECIMENOrdering Facility: [facility] Address: [address] [place] [address] Performed By: #### 2 4321-2 ####[facility] LABIA [id number] [place] [address] [place] Creatinine and Glomerular filtration rate.predicted panel (S/P/Bld) 95 mL/min/1.73m??? Normal >=60 [facility] Comment on above: Order Comment: Roberto Carlos lion Type: BLOOD SPECIMENOrdering Facility: [facility] Address: [address] [place] [address] Result Comment: Yesica mated Glomerular Filtration Rate [...] actual GFR. Performed By: #### 2 4321-2 ####[facility] LABIA [id number] [place] [address] [place] Glucose [Mass/Vol] 111 mg/dL High 74-99 [facility] Comment on above: Order Comment: Roberto Carlos lion Type: BLOOD SPECIMENOrdering Facility: [facility] Address: [address] [place] [address] Result Comment: The [place] Diabetes Association (ADA) provides guidance for cutoff [...] Standards of Medical Care in Diabetes 2016, [place] Diabetes Association. Diabetes Care. 2016.39(Suppl 1). Performed By: #### 2 4321-2 ####[facility] LABCLIA [id number] [place] [address] [place] Potassium [Moles/Vol] 4.0 mmol/L Normal 3.7-5.1 [facility] Comment on above: Order Comment: Speci men Type: BLOOD SPECIMENOrdering Facility: [facility] Address: [address] [place] [address] Performed By: #### 2 4321-2 ####[facility] LABCLIA [id number] [place] [address] [place] Sodium [Moles/Vol] 140 mmol/L Normal 136-144 [facility] Comment on above: Order Comment: Speci men Type: BLOOD SPECIMENOrdering Facility: [facility] Address: [address] [place] [address] Performed By: #### 2 4321-2 ####[facility] LABCLIA [id number] [place] [address] [place] Urea nitrogen [Mass/Vol] 10 mg/dL Normal 9-24 [facility] Comment on above: Order Comment: Speci men Type: BLOOD SPECIMENOrdering Facility: [facility] Address: [address] [place] [address] Performed By: #### 2 4321-2 ####[facility] LABCLIA [id number] [place] [address] [place] CBC panel Auto (Bld)on 08-19 Erythrocyte distribution width (RBC) [Ratio] 13.2 % Normal 11.5-15.0 [facility] Comment on above: Order Comment: Speci men Type: BLOOD SPECIMENOrdering Facility: [facility] Address: [address] [place] [address] Performed By: #### 5 8410-2 ####[facility] LABIA [id number] [place] [address] [place] Hematocrit (Bld) [Volume fraction] 39.0 % Normal 39.0-51.0 [facility] Comment on above: Order Comment: Speci men Type: BLOOD SPECIMENOrdering Facility: [facility] Address: [address] [place] [address] Performed By: #### 5 8410-2 ####[facility] LABCLIA [id number] [place] [address] [place] Hemoglobin (Bld) [Mass/Vol] 12.9 g/dL Low 13.0-17.0 [facility] Comment on above: Order Comment: Speci men Type: BLOOD SPECIMENOrdering Facility: [facility] Address: [address] [place] [address] Performed By: #### 5 8410-2 ####[facility] LABCLIA [id number] [place] [address] [place] MCH (RBC) [Entitic mass] 32.4 pg Normal 26.0-34.0 [facility] Comment on above: Order Comment: Speci men Type: BLOOD SPECIMENOrdering Facility: [facility] Address: [address] [place] [address] Performed By: #### 5 8410-2 ####[facility] LABIA [id number] [place] [address] [place] MCHC (RBC) [Mass/Vol] 33.1 g/dL Normal 30.5-36.0 [facility] Comment on above: Order Comment: Speci men Type: BLOOD SPECIMENOrdering Facility: [facility] Address: [address] [place] [address] Performed By: #### 5 8410-2 ####[facility] LABCLIA [id number] [place] [address] [place] MCV (RBC) [Entitic vol] 98.0 fL Normal 80.0-100.0 [facility] Comment on above: Order Comment: Speci men Type: BLOOD SPECIMENOrdering Facility: [facility] Address: [address] [place] [address] Performed By: #### 5 8410-2 ####[facility] LABIA [id number] [place] [address] [place] Nucleated RBC (Bld) [#/Vol] 10*3/uL Normal <0.01 [facility] Comment on above: Order Comment: Speci men Type: BLOOD SPECIMENOrdering Facility: [facility] Address: [address] [place] [address] Performed By: #### 5 8410-2 ####[facility] LABIA [id number] [place] [address] [place] Platelet mean volume (Bld) [Entitic vol] 9.7 fL Normal 9.0-12.7 [facility] Comment on above: Order Comment: Speci men Type: BLOOD SPECIMENOrdering Facility: [facility] Address: [address] [place] [address] Performed By: #### 5 8410-2 ####[facility] LABIA [id number] [place] [address] [place] Platelets (Bld) [#/Vol] 389 10*3/uL Normal 150-400 [facility] Comment on above: Order Comment: Speci men Type: BLOOD SPECIMENOrdering Facility: [facility] Address: [address] [place] [address] Performed By: #### 5 8410-2 ####[facility]IA [id number] [place] [address] [place] RBC (Bld) [#/Vol] 3.98 10*6/uL Low 4.20-6.00 [facility] Comment on above: Order Comment: Speci men Type: BLOOD SPECIMENOrdering Facility: [facility] Address: [address] [place] [address] Performed By: #### 5 8410-2 ####[facility] LABCLIA [id number] [place] [id number] [place] WBC (Bld) [#/Vol] 11.15 10*3/uL High 3.70-11.00 [facility] Comment on above: Order Comment: Speci men Type: BLOOD SPECIMENOrdering Facility: [facility] Address: [address] [place] [address] Performed By: #### 5 8410-2 ####[facility] LABCLIA [id number] [place] [address] [place] LUMBAR SPINE WO IVCONon 0 08-20-2023 CT LUMBAR SPINE WO IVCON Normal [facility] MRI LUMBAR SPINE WO IVCONon 08-20-2023 MRI LUMBAR SPINE WO IVCON Normal [facility] THERAPY NTon 08-20-2023 THERAPY NT Normal [facility] THERAPY NT Normal [facility] ANES POSTPROC EVALon 024 ANES POSTPROC EVAL Normal [facility] ANES PRE-OPon 08-19-2023 ANES PRE-OP Normal [facility] BRIEF OP NOTon 08-19-2023 BRIEF OP NOT Normal [facility] NURSING PROGon 08-19-2023 NURSING PROG Normal [facility] NURSING PROG Normal [facility] OPERATIVE NOon 08-19-2023 OPERATIVE NO Normal [facility] XR LUMBAR 2V AP/LATon 2023 XR LUMBAR 2V AP/LAT Normal [facility] XR LUMBAR 2V AP/LAT Normal [facility] XR LUMBAR 2V AP/LAT Normal [facility] CNPNon 08-11-2023 CNPN Normal [facility] Basic metabolic 2000 panelon 08-06-2023 Anion gap [Moles/Vol] 13 mmol/L 9 - 18 mmol/L [facility] Calcium [Mass/Vol] 9.2 mg/dL 8.5 - 10. 2 mg/dL [facility] Chloride [Moles/Vol] 100 mmol/L 97 - 10 5 mmol/L [facility] CO2 [Moles/Vol] 24 mmol/L 22 - 30 mmol/L [facility] Creatinine [Mass/Vol] 1.00 mg/dL 0.73 - 1.22 mg/dL [facility] GFR/1.73 sq M.predicted among non-blacks MDRD (S/P/Bld) [Vol rate/Area] 83 mL/min/{1.73_m2} - PINF [facility] Comment on above: Estimated Glomerular Filtration Rate [...] 100 mg/dL High 74 - 99 mg/dL [facility] Comment on above: The [place] Diabete s Association (ADA) provides guidance for [...] Standards of Medical Care in Diabetes 2016, [place] Diabetes Association. Diabetes Care. 2016.39(Suppl 1). Interpretation and review of laboratory results Abnormal [facility] Potassium [Moles/Vol] 4.1 mmol/L 3.7 - 5.1 mmol/L [facility] Sodium [Moles/Vol] 137 mmol/L 136 - 144 mmol/L [facility] Urea nitrogen [Mass/Vol] 23 mg/dL 9 - 24 mg/dL [facility] Anion gap [Moles/Vol] 13 mmol/L Normal 9-18 [facility] Comment on above: Order Comment: Speci men Type: BLOOD SPECIMEN Ordering Facility: [facility] Address: [address] [place] [address] Performed By: #### 2 3991-2, 5796-4, 42148-5 #### [facility] CLIA [id number] [address] [place] [address] [place] Calcium [Mass/Vol] 9.2 mg/dL Normal 8.5-10.2 [facility] Comment on above: Order Comment: Speci men Type: BLOOD SPECIMEN Ordering Facility: [facility] Address: [address] [place] [address] Performed By: #### 2 4321-2, 2275-4, 83060-4 #### [facility] CLIA [id number] [address] [place] [address] [place] Chloride [Moles/Vol] 100 mmol/L Normal 97-105 [facility] Comment on above: Order Comment: Speci men Type: BLOOD SPECIMEN Ordering Facility: [facility] Address: [address] [place] [address] Performed By: #### 2 4321-2, 2275-06, 14227-2 #### [facility] [place] [id number] [address] [place] [address] [place] CO2 [Moles/Vol] 24 mmol/L Normal 22-30 [facility] Comment on above: Order Comment: Speci men Type: BLOOD SPECIMEN Ordering Facility: [facility] Address: [address] [place] [address] Performed By: #### 2 4321-2, 4, 90350-3 #### [facility] CLIA [id number] [address] [place] [address] [place] Creatinine [Mass/Vol] 1.00 mg/dL Normal 0.73-1.22 [facility] Comment on above: Order Comment: Speci men Type: BLOOD SPECIMEN Ordering Facility: [facility] Address: [address] [place] [address] Performed By: #### 2 4321-2, 2275-4, 69515-6 #### [facility] CLIA [id number] [address] [place] [address] [place] Creatinine and Glomerular filtration rate.predicted panel (S/P/Bld) 83 mL/min/1.73m??? Normal >=60 [facility] Comment on above: Order Comment: Roberto Carlos lion Type: BLOOD SPECIMEN Ordering Facility: [facility] Address: [address] [place] [address] Result Comment: Yesica mated Glomerular Filtration Rate [...] GFR. Performed By: #### 2 4321-2, 2276-4, 15040-0 #### [facility] CLIA [id number] [address] [facility] [place] [address] [place] Glucose [Mass/Vol] 100 mg/dL High 74-99 [facility] Comment on above: Order Comment: Roberto Carlos lion Type: BLOOD SPECIMEN Ordering Facility: [facility] Address: [address] [place] [address] Result Comment: The [place] Diabetes Association (ADA) provides guidance for cutoff [...] Standards of Medical Care in Diabetes 2016, [place] Diabetes Association. Diabetes Care. 2016.39(Suppl 1). Performed By: #### 2 4321-2, 2276-4, 00807-0 #### [facility] CLIA [id number] [address] [facility] [place] [address] [place] Potassium [Moles/Vol] 4.1 mmol/L Normal 3.7-5.1 [facility] Comment on above: Order Comment: Speci men Type: BLOOD SPECIMEN Ordering Facility: [facility] Address: [address] [place] [address] Performed By: #### 2 4321-2, 2276-4, 32501-9 #### [facility] CLIA [id number] [address] [place] [address] [place] Sodium [Moles/Vol] 137 mmol/L Normal 136-144 [facility] Comment on above: Order Comment: Speci men Type: BLOOD SPECIMEN Ordering Facility: [facility] Address: [address] [place] [address] Performed By: #### 2 4321-2, 6-4, 35828-8 #### [facility] CLIA [id number] [address] [place] [address] [place] Urea nitrogen [Mass/Vol] 23 mg/dL Normal 9-24 [facility] Comment on above: Order Comment: Speci men Type: BLOOD SPECIMEN Ordering Facility: [facility] Address: [address] [place] [address] Performed By: #### 2 4321-2, 2276-4, 28707-0 #### [facility] CLIA [id number] [address] [place] [address] [place] CBC W Auto Differential pane l (Bld)on 08-06-2023 Basophils (Bld) [#/Vol] 0.08 10*3/uL Normal <0.11 [facility] Comment on above: Order Comment: Speci men Type: BLOOD SPECIMEN Ordering Facility: [facility] Address: [address] [place] [address] Performed By: #### 5 7021-8 #### [facility] CLIA [id number] [address] [place] [id number] [place] Basophils/100 WBC (Bld) 0.9 % Normal [facility] Comment on above: Order Comment: Speci men Type: BLOOD SPECIMEN Ordering Facility: [facility] Address: [address] [place] [address] Performed By: #### 5 7021-8 #### [facility] CLIA [id number] [address] [facility] [place] [address] [place] Differential cell count method Nom (Bld) Auto Normal [facility] Comment on above: Order Comment: Speci men Type: BLOOD SPECIMEN Ordering Facility: [facility] Address: [address] [place] [address] Performed By: #### 5 7021-8 #### [facility] CLIA [id number] [address] [place] [address] [place] Eosinophils (Bld) [#/Vol] 0.43 10*3/uL Normal <0.46 [facility] Comment on above: Order Comment: Speci men Type: BLOOD SPECIMEN Ordering Facility: [facility] Address: [address] [place] [address] Performed By: #### 5 7021-8 #### [facility] CLIA [id number] [address] [place] [address] [place] Eosinophils/100 WBC (Bld) 4.6 % Normal [facility] Comment on above: Order Comment: Speci men Type: BLOOD SPECIMEN Ordering Facility: [facility] Address: [address] [place] [address] Performed By: #### 5 7021-8 #### [facility] [place] [id number] [address] [place] Erythrocyte distribution width (RBC) [Ratio] 12.7 % Normal 11.5-15.0 [facility] Comment on above: Order Comment: Speci men Type: BLOOD SPECIMEN Ordering Facility: [facility] Address: [address] [place] [address] Performed By: #### 5 7021-8 #### [facility] CLIA [id number] [address] [place] Hematocrit (Bld) [Volume fraction] 46.3 % Normal 39.0-51.0 [facility] Comment on above: Order Comment: Speci men Type: BLOOD SPECIMEN Ordering Facility: [facility] Address: [address] [place] [address] Performed By: #### 5 7021-8 #### [facility] CLIA [id number] [address] [place] [address] [place] Hemoglobin (Bld) [Mass/Vol] 15.1 g/dL Normal 13.0-17.0 [facility] Comment on above: Order Comment: Speci men Type: BLOOD SPECIMEN Ordering Facility: [facility] Address: [address] [place] [address] Performed By: #### 5 7021-8 #### [facility] CLIA [id number] [address] [place] [address] [place] Immature granulocytes (Bld) [#/Vol] 0.21 10*3/uL High <0.10 [facility] Comment on above: Order Comment: Speci men Type: BLOOD SPECIMEN Ordering Facility: [facility] Address: [address] [place] [address] Performed By: #### 5 7021-8 #### [facility] IA [id number] [address] [place] [address] [place] Immature granulocytes/100 WBC (Bld) 2.3 % Normal [facility] Comment on above: Order Comment: Speci men Type: BLOOD SPECIMEN Ordering Facility: [facility] Address: [address] [place] [address] Performed By: #### 5 7021-8 #### [facility] IA [id number] [address] [place] [address] [place] Lymphocytes (Bld) [#/Vol] 1.59 10*3/uL Normal 1.00-4.00 [facility] Comment on above: Order Comment: Speci men Type: BLOOD SPECIMEN Ordering Facility: [facility] Address: [facility] [place] [address] Performed By: #### 5 7021-8 #### [facility] CLIA [id number] [address] [place] [address] [place] Lymphocytes/100 WBC (Bld) 17.2 % Normal [facility] Comment on above: Order Comment: Speci men Type: BLOOD SPECIMEN Ordering Facility: [facility] Address: [address] [place] [address] Performed By: #### 5 7021-8 #### [facility] [place] [id number] [address] [place] MCH (RBC) [Entitic mass] 31.9 pg Normal 26.0-34.0 [facility] Comment on above: Order Comment: Speci men Type: BLOOD SPECIMEN Ordering Facility: [facility] Address: [address] [place] [address] Performed By: #### 5 7021-8 #### [facility] IA [id number] [address] [place] [address] [place] MCHC (RBC) [Mass/Vol] 32.6 g/dL Normal 30.5-36.0 [facility] Comment on above: Order Comment: Speci men Type: BLOOD SPECIMEN Ordering Facility: [facility] Address: [address] [place] [address] Performed By: #### 5 7021-8 #### [facility] [place] [id number] [address] [place] MCV (RBC) [Entitic vol] 97.9 fL Normal 80.0-100.0 [facility] Comment on above: Order Comment: Speci men Type: BLOOD SPECIMEN Ordering Facility: [facility] Address: [address] [place] [address] Performed By: #### 5 7021-8 #### [facility] IA [id number] [address] [place] [address] [place] Monocytes (Bld) [#/Vol] 1.13 10*3/uL High <0.87 [facility] Comment on above: Order Comment: Speci men Type: BLOOD SPECIMEN Ordering Facility: [facility] Address: [address] [place] [address] Performed By: #### 5 7021-8 #### [facility] IA [id number] [address] [address] [place] Monocytes/100 WBC (Bld) 12.2 % Normal [facility] Comment on above: Order Comment: Speci men Type: BLOOD SPECIMEN Ordering Facility: [facility] Address: [address] [place] [address] Performed By: #### 5 7021-8 #### [facility] CLIA [id number] [address] [place] [address] [place] Neutrophils (Bld) [#/Vol] 5.82 10*3/uL Normal 1.45-7.50 [facility] Comment on above: Order Comment: Speci men Type: BLOOD SPECIMEN Ordering Facility: [facility] Address: [address] [place] [address] Performed By: #### 5 7021-8 #### [facility] CLIA [id number] [address] [place] [address] [place] Neutrophils/100 WBC (Bld) 62.8 % Normal [facility] Comment on above: Order Comment: Speci men Type: BLOOD SPECIMEN Ordering Facility: [facility] Address: [address] [place] [address] Performed By: #### 5 7021-8 #### [facility] CLIA [id number] [address] [place] [address] [place] Nucleated RBC (Bld) [#/Vol] 10*3/uL Normal <0.01 [facility] Comment on above: Order Comment: Speci men Type: BLOOD SPECIMEN Ordering Facility: [facility] Address: [address] [place] [address] Performed By: #### 5 7021-8 #### [facility] CLIA [id number] [address] [place] [id number] [place] Nucleated RBC/100 WBC (Bld) [Ratio] 0.0 /100 WBC Normal [facility] Comment on above: Order Comment: Speci men Type: BLOOD SPECIMEN Ordering Facility: [facility] Address: [address] [place] [address] Performed By: #### 5 7021-8 #### [facility] CLIA [id number] [address] [place] [address] [place] Platelet mean volume (Bld) [Entitic vol] 9.6 fL Normal 9.0-12.7 [facility] Comment on above: Order Comment: Speci men Type: BLOOD SPECIMEN Ordering Facility: [facility] Address: [address] [place] [address] Performed By: #### 5 7021-8 #### [facility] IA [id number] [address] [place] [address] [place] Platelets (Bld) [#/Vol] 270 10*3/uL Normal 150-400 [facility] Comment on above: Order Comment: Speci men Type: BLOOD SPECIMEN Ordering Facility: [facility] Address: [address] [place] [address] Performed By: #### 5 7021-8 #### [facility] IA [id number] [address] [place] [address] [place] RBC (Bld) [#/Vol] 4.73 10*6/uL Normal 4.20-6.00 [facility] Comment on above: Order Comment: Speci men Type: BLOOD SPECIMEN Ordering Facility: [facility] Address: [address] [place] [address] Performed By: #### 5 7021-8 #### [facility] IA [id number] [address] [place] [address] [place] WBC (Bld) [#/Vol] 9.26 10*3/uL Normal 3.70-11.00 [facility] Comment on above: Order Comment: Speci men Type: BLOOD SPECIMEN Ordering Facility: [facility] Address: [address] [place] [address] Performed By: #### 5 7021-8 #### [facility] IA [id number] [address] [place] [address] [facility] BLOOD TYPEon 08-05- 024 ABO O Normal [facility] Comment on above: Order Comment: Speci men Type: BLOOD SPECIMEN Ordering Facility: [facility] Address: [address] [place] [address] Performed By: #### C ONABO #### [facility] CLIA [id number] [address] [place] [address] [facility] Rh Nom (Bld) Negative Normal [facility] Comment on above: Order Comment: Speci men Type: BLOOD SPECIMEN Ordering Facility: [facility] Address: [address] [place] [address] Performed By: #### C ONABO #### [facility] CLIA [id number] [address] [place] [address] [facility] Performed By: #### T SCR30 #### [facility] CLIA [id number] [address] [place] [id number] [facility] ECG COMPLETEon 08-06-2023 ECG COMPLETE Ventricular Rate : 5 5 BPM Atrial Rate : 55 BPM P-R Interval : 132 ms QRS Duration : 96 ms Q-T Interval : 420 ms QTC Calculation(Bazett) : 401 ms Calculated P Ventress : 57 degrees Calculated R Ventress : 63 degrees Calculated T Ventress : 73 degrees Sinus bradycardia Possible Left atrial enlargement Borderline ECG Confirmed by LEX ACUNA DO ([id number]) on 08/18/2023 10:08:16 AM NAME : BRADEN RODRIGUEZ PID : [id number] : 1955 Gender : Male Race : ORD : [id number] Procedure Date : Aug 06 2023 08:48:24 Edit Date : Aug 18 2023 10:08:19 Diagnosis: Sinus bradycardia Possible Left atrial enlargement Borderline ECG Confirmed by LEX ACUNA DO ([id number]) on 08/18/2023 10:08:16 AM Test Reason : HCS Location : 301 : [facility] Overread By : LEX ACUNA DO Edited By : LEX ACUNA DO Referred By : KATHERINE KEITH Acquired by : dm, Normal [facility] Ferritin SerPl-mCncon 2023 Ferritin [Mass/Vol] 322.8 ng/mL Normal 30.3-565.7 [facility] Comment on above: Order Comment: Speci men Type: BLOOD SPECIMEN Ordering Facility: [facility] Address: [address] [place] [address] Performed By: #### 2 4321-2, 2276-4, 48949-5 #### [facility] CLIA [id number] [address] [facility] [place] [address] [place] HISTORY PHYSICALon HISTORY PHYSICAL HNO ID: [id number] Author: SANAM GILL PA-C Service: ? 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 Relieving factors include Randolph and steroids. Aggravating factors include repetitive movement. [...] Covid Immunization Dates Overdue - Covid-19 Vaccine (2022- season) Overdue since 11/08/2022 12/29/2020 Imm Admin: COVID-19 original vaccine, age 12+ yr, monovalent (PFIZER-BIONTECH - PURPLE TOP) 06/09/2020 Imm Admin: COVID-19 original vaccine, age 12+ yr, monovalent (PFIZER-BIONTECH - PURPLE TOP) 05/19/2020 Imm Admin: COVID-19 original vaccine, a (more content not included)... Normal [facility] Iron and Iron binding capaci ty formerly [facility] 08-06-2023 Iron [Mass/Vol] 99 ug/dL Normal 41-186 [facility] Comment on above: Order Comment: Speci men Type: BLOOD SPECIMEN Ordering Facility: [facility] Address: [address] [place] [address] Performed By: #### 2 4321-2, 2276-4, 61812-3 #### [facility] CLIA [id number] [address] [place] [address] [place] Iron binding capacity [Mass/Vol] 252 ug/dL Normal 232-386 [facility] Comment on above: Order Comment: Speci men Type: BLOOD SPECIMEN Ordering Facility: [facility] Address: [address] [place] [id number] Performed By: #### 2 4321-2, 2276-4, 56665-9 #### [facility] CLIA [id number] [address] [place] [address] [place] Iron/TIBC [Molar ratio] 39.3 % Normal 15.0-57.0 [facility] Comment on above: Order Comment: Speci men Type: BLOOD SPECIMEN Ordering Facility: [facility] Address: [address] [place] [id number] Performed By: #### 2 4321-2, 2276-4, 54444-5 #### [facility] CLIA [id number] [address] [facility] [place] [address] [place] Laboratory - Blood bankon ABO group Nom (Bld) O [facility] No Panel Informationon 08-05 [facility] STAPHYLOCOCCUS AUREUS AND MR SA SCREEN, PCR, NASALon 08-06-2023 S. aureus and MRSA panel BARBARA+probe (Nose) Not detected Normal Not Detected [facility] Comment on above: Order Comment: Speci men Type: SWAB Ordering Facility: [facility] Address: [address] [place] [address] Performed By: #### S APCR #### [facility] CLIA [id number] [address] [place] [address] [place] TYPE AND SCREEN,30 DAYon Blood group antibody screen Ql Negative [facility] ABO O Normal [facility] Comment on above: Order Comment: Speci men Type: BLOOD SPECIMEN Ordering Facility: [facility] Address: [address] [place] [address] Performed By: #### T SCR30 #### [facility] [place] [id number] [address] [place] [address] [place] HIstorical Ab Scr Status Negative Normal [facility] Comment on above: Order Comment: Speci men Type: BLOOD SPECIMEN Ordering Facility: [facility] Address: [address] [place] [address] Performed By: #### T SCR30 #### [facility] [place] [id number] [address] [place], [place] [id number] [place] CNPNon 08-01-2023 CNPN Normal [facility] CT LUMBAR SPINE WO IVCONon 0 05-04-2023 CT LUMBAR SPINE WO IVCON * * *Final Report* * * DATE OF EXAM: May 04 2023 8:14AM [facility] 0508 - CT LUMBAR SPINE [...] caudal rib-bearing vertebra is counted as T12. Vp Genetic (topogram) images: No significant additional findings Alignment: [...] crest and there are 5 lumbar-type vertebrae. [facility] Transcribe Date/Time: May 04 2023 9:20A Dictated by : CLAIRE LAZAR MD This examination was interpreted and the report reviewed and electronically signed by: CLAIRE LAZAR MD on May 04 2023 9:32AM EST [id number] Normal [facility] CT Lumbar spine WO contrasto n 05-04-2023 [facility] XR Lumbar spine Views W flex ion and W extensionon 04-30-2023 [facility] XR Thoracic and lumbar spine Views for scoliosis W standingon 04-30-2023 [facility] Creatinine (Bld) [Mass/Vol]O rdered By: Shae Guillory [...] WILTON NICHOLE Date: 2022-04-12 08:12 Normal [facility] CREATININEon 04-11-2022 Creatinine [Mass/Vol] 0.80 mg/dL Normal 0.70-1.30 [facility] Comment on above: Performed By: #### P [facility], VITAD #### [facility] [address] [place] [address] [address] Max Peck EGFR-AF CHINESE >60 Normal >=60 [facility] Comment on above: Performed By: #### P [facility], VITAD #### [facility] [address] [place] [address] [address] Max Peck EGFR-NON AF CHINESE >60 Normal >=60 [facility] Comment on above: Performed By: #### P [facility], [facility] #### [facility] [address] [place] [address] [address] Max Peck XR ABD FLAT UP_PA [...] by: EDENILSON KNIGHT Date: 2022-03-16 10:42 Normal [facility] LIPID PROFILEon 03-06-2022 CHOL-HDL RATIO NORM SEE BELOW Normal [facility] Comment on above: Result Comment: 3.3 - 4.4 LOW RISK 4.4 - 7.1 AVERAGE RISK 7.1 - 11.0 MODERATE RISK >11.0 HIGH RISK Performed By: #### P SASC, VITAD #### [facility] [address] [place] [address] [address] Max Peck Cholesterol [Mass/Vol] 163 mg/dL Normal <=200 [facility] Comment on above: Performed By: #### P SASC, VITAD #### [facility] [address] [place] [address] [address] Max Peck Cholesterol in HDL [Mass/Vol] 50 mg/dL Normal 40-60 [facility] Comment on above: Performed By: #### P [facility], VITAD #### [facility] [address] [place] [address] [address] Max Peck Cholesterol in LDL [Mass/Vol] 100.0 mg/dL Normal [facility] Comment on above: Performed By: #### P SASC, VITAD #### [facility] [address] [address] [address] Max Peck Cholesterol.total/Cho lesterol in HDL [Mass ratio] 3.3 {ratio} Normal [facility] Comment on above: Performed By: #### P SASC, VITAD #### [facility] [address] [address] [address] Max Peck HDL NORMAL > or = 60 mg/dl - LO W CARDIOVASCULAR RISK <40 mg/dl - HIGH CARDIOVASCULAR RISK Normal [facility] Comment on above: Performed By: #### P SASC, VITAD #### [facility] [address] [place] [address] Dr. Max Peck LDL CALC NORMAL SEE BELOW Normal [facility] Comment on above: Result Comment: <100 mg/dl OPTIMAL 100 - 129 mg/dl NEAR OR ABOVE OPTIMAL 130 - 159 mg/dl BORDERLINE HIGH 160 - 189 mg/dl HIGH >190 mg/dl VERY HIGH Performed By: #### P SASC, VITAD #### [facility] [address] [place] [address] Dr. Max Peck Triglyceride [Mass/Vol] 65 mg/dL Normal <=150 [facility] Comment on above: Performed By: #### P SASC, VITAD #### [facility] [address] [place] [address] Dr. Max Peck VLDL CALC 13.0 mg/dL Normal [facility] Comment on above: Performed By: #### P SASC, VITAD #### [facility] [address] [place] [address] Dr. Max Peck PROF 14(COMP METB)on 022 Albumin [Mass/Vol] 3.9 g/dL Normal 3.4-5.0 [facility] Comment on above: Performed By: #### P SASC, VITAD #### [facility] [address] [place] [address] Dr. Max Peck Albumin/Globulin [Mass ratio] 1.3 {ratio} Normal [facility] Comment on above: Performed By: #### P SASC, VITAD #### [facility] [address] [place] [address] Dr. Max Peck ALP [Catalytic activity/Vol] 79 U/L Normal 46-116 [facility] Comment on above: Performed By: #### P SASC, VITAD #### [facility] [address] [place] [address] Dr. Max Peck ALT [Catalytic activity/Vol] 24 U/L Normal 16-63 [facility] Comment on above: Performed By: #### P SASC, VITAD #### [facility] [address] [place] [address] Dr. Max Peck Anion gap [Moles/Vol] 12.3 mmol/L Normal Th [facility] Comment on above: Performed By: #### P SASC, VITAD #### [facility] [address] [place] [address] Dr. Max Peck AST [Catalytic activity/Vol] 25 U/L Normal 15-37 [facility] Comment on above: Performed By: #### P SASC, VITAD #### [facility] [address] [place] [address] Dr. Max Peck Bilirubin [Mass/Vol] 1.4 mg/dL Critically high 0.2-1.0 [facility] Comment on above: Performed By: #### P SASC, VITAD #### [facility] [address] [place] [address] Dr. Max Peck Calcium [Mass/Vol] 9.1 mg/dL Normal 8.5-10.1 [facility] Comment on above: Performed By: #### P SASC, VITAD #### [facility] [address] [place] [address] Dr. Max Peck Chloride [Moles/Vol] 100 mmol/L Normal 98-107 [facility] Comment on above: Performed By: #### P SASC, VITAD #### [facility] [address] [place] [address] Dr. Max Peck CO2 [Moles/Vol] 30.7 mmol/L Normal 21.0-32.0 [facility] Comment on above: Performed By: #### P SASC, VITAD #### [facility] [address] [place] [address] Dr. Max Peck Creatinine [Mass/Vol] 0.86 mg/dL Normal 0.70-1.30 [facility] Comment on above: Performed By: #### P SASC, VITAD #### [facility] [address] [place] [address] Dr. Max Peck EGFR-AF CHINESE 60 mL/min/1.73m2 Normal >=[address] [facility] Comment on above: Performed By: #### P SASC, VITAD #### [facility] [address] [address] [address] Max Peck EGFR-NON AF CHINESE 60 mL/min/1.73m2 Normal >=60 [facility] Comment on above: Performed By: #### P SASC, VITAD #### [facility] [address] [address] [address] Max Peck Globulin (S) [Mass/Vol] 3.1 g/dL Normal [facility] Comment on above: Performed By: #### P SASC, VITAD #### [facility] [address] [address] [address] Max Peck Glucose [Mass/Vol] 102 mg/dL Normal 74-106 [facility] Comment on above: Performed By: #### P SASC, VITAD #### [facility] [address] [place] [address] Dr. Max Peck Potassium [Moles/Vol] 4.0 mmol/L Normal 3.5-5.1 [facility] Comment on above: Performed By: #### P SASC, VITAD #### [facility] [address] [address] [address] Max Peck Protein [Mass/Vol] 7.0 g/dL Normal 6.4-8.2 [facility] Comment on above: Performed By: #### P SASC, VITAD #### [facility] [address] [address] [address] Max Peck Sodium [Moles/Vol] 139 mmol/L Normal 136-145 [facility] Comment on above: Performed By: #### P SASC, VITAD #### [facility] [address] [address] [address] Max Peck Urea nitrogen [Mass/Vol] 10.0 mg/dL Normal 7.0-18.0 [facility] Comment on above: Performed By: #### P SASC, VITAD #### [facility] [address] [address] [address] Max Peck Urea nitrogen/Creatinine [Mass ratio] 11.6 mg/mg Normal [facility] Comment on above: Performed By: #### P SASC, VITAD #### [facility] [address] [address] [address] Max Peck XR CSPINE MIN 4 [...] WILTON NICHOLE Date: 2022-01-19 07:14 Normal [facility] HEPATITIS PANEL, ACUTEon HBsAg Screen Negative Normal Negative [facility] Comment on above: Performed By: #### P SASC, VITAD #### [facility] [address] [place] [address] Dr. Max Peck HCV AB <0.1 Normal 0.0-0.9 [facility] Comment on above: Performed By: #### P SASC, VITAD #### [facility] [address] [address] [address] Max Peck Hep A Ab, IgM Negative Normal Negative [facility] Comment on above: Performed By: #### P SASC, VITAD #### [facility] [address] [address] [address] Max Peck Hep B Core Ab, IgM Negative Normal Negative [facility] Comment on above: Performed By: #### P SASC, VITAD #### [facility] [address] [place] [address] Dr. Max Peck Interpretation: Comment Normal [facility] Comment on above: Result Comment: Nega tive Not infected with HCV, unless recent infection is suspected or other evidence exists to indicate HCV infection. Performed By: #### P SASC, VITAD #### [facility] [address] [place] [address] Dr. Max Peck INSULINon 12-29-2021 Insulin 15.1 uIU/mL Normal 2.6-24.9 [facility] Comment on above: Performed By: #### P SASC, VITAD #### [facility] [address] [place] [address] Dr. Max Peck TESTOSTERONE, TOTALon 2021 Testosterone [Mass/Vol] 766 ng/dL Normal 264-916 [facility] Comment on above: Result Comment: Adul t male reference interval is based on a population of healthy nonobese males (BMI <30) between 19 and 39 years old. yeni Espinal.al. JCEM 2017,102;0668-0670. PMID: [id number]. Performed By: #### P BILLYC, VITAD #### [facility] [address] [place] [address] Dr. Max Peck CBC AUTO DIFFon 12-28-2021 BASO # 0.0 103/ul Normal 0.0-0.1 [facility] Comment on above: Performed By: #### P HUGO, VITAD #### [facility] [address] [place] [address] Dr. Max Peck Basophils/100 WBC (Bld) 0.4 % Normal 0.2-2.0 [facility] Comment on above: Performed By: #### P SASC, VITAD #### [facility] [address] [place] [address] Dr. Max Peck EO # 0.0 103/ul Normal 0.0-0.7 [facility] Comment on above: Performed By: #### P SASC, VITAD #### [facility] [address] [place] [address] Dr. Max Peck Eosinophils/100 WBC (Bld) 0.3 % Critically low 0.9-7.0 [facility] Comment on above: Performed By: #### P SASC, VITAD #### [facility] [address] [place] [address] Dr. Max Peck Erythrocyte distribution width (RBC) [Ratio] 12.5 % Normal 11.0-15.0 [facility] Comment on above: Performed By: #### P SASC, VITAD #### [facility] [address] [place] [address] Dr. Max Peck Hematocrit (Bld) [Volume fraction] 41.5 % Critically low 42.0-54.0 [facility] Comment on above: Performed By: #### P SASC, VITAD #### [facility] [address] [place] [address] Dr. Max Peck Hemoglobin (Bld) [Mass/Vol] 14.0 g/dL Normal 14.0-18.0 [facility] Comment on above: Performed By: #### P SASC, VITAD #### [facility] [address] [place] [address] Dr. Max Peck IG # 0.09 10e3/ul Critically high 0.00-0.03 [facility] Comment on above: Performed By: #### P SASC, VITAD #### [facility] [address] [place] [address] Dr. Max Peck IG % 0.9 % Critically high 0.0-0.5 [facility] Comment on above: Performed By: #### P SASC, VITAD #### [facility] [address] [place] [address] Dr. Max Peck LYMPH # 2.6 103/ul Normal 1.2-3.8 [facility] Comment on above: Performed By: #### P SASC, VITAD #### [facility] [address] [place] [address] Dr. Max Peck Lymphocytes/100 WBC (Bld) 25.0 % Normal 20.5-60.0 [facility] Comment on above: Performed By: #### P SASC, VITAD #### [facility] [address] [place] [address] Dr. Max Peck MANUAL DIFF REQ NO Normal [facility] Comment on above: Performed By: #### P SASC, VITAD #### [facility] [address] [place] [address] Dr. Max Peck MCH (RBC) [Entitic mass] 32.6 pg Normal 25.9-34.0 [facility] Comment on above: Performed By: #### P SASC, VITAD #### [facility] [address] [place] [address] Dr. Max Peck MCHC (RBC) [Mass/Vol] 33.7 g/dL Normal 29.9-35.2 [facility] Comment on above: Performed By: #### P SASC, VITAD #### [facility] [address] [place] [address] Dr. Max Peck MCV (RBC) [Entitic vol] 96.7 fL Critically high 80.0-94.0 [facility] Comment on above: Performed By: #### P SASC, VITAD #### [facility] [address] [place] [address] Dr. Max Peck MONO # 1.2 103/ul Critically high 0.3-0.8 [facility] Comment on above: Performed By: #### P SASC, VITAD #### [facility] [address] [place] [address] Dr. Max Peck Monocytes/100 WBC (Bld) 11.1 % Normal 1.7-12.0 [facility] Comment on above: Performed By: #### P SASC, VITAD #### [facility] [address] [place] [address] Dr. Max Peck NEUT # 6.4 103/ul Normal 1.4-6.5 [facility] Comment on above: Performed By: #### P SASC, VITAD #### [facility] [address] [place] [address] Dr. Max Peck Neutrophils/100 WBC (Bld) 62.3 % Normal 43.0-75.0 [facility] Comment on above: Performed By: #### P SASC, VITAD #### [facility] [address] [address] [address] Max Peck Platelet mean volume (Bld) [Entitic vol] 9.6 fL Normal 9.5-13.5 [facility] Comment on above: Performed By: #### P SASC, VITAD #### [facility] [address] [address] [address] Max Peck PLT 323 103/ul Normal 150-450 [facility] Comment on above: Performed By: #### P SASC, VITAD #### [facility] [address] [address] [address] Max Peck RBC 4.29 106/ul Critically low 4.70-6.10 [facility] Comment on above: Performed By: #### P SASC, VITAD #### [facility] [address] [address] [address] Max Peck WBC 10.3 103/ul Normal 4.0-11.0 [facility] Comment on above: Performed By: #### P SASC, VITAD #### [facility] [address] [address] [address] Max Peck FREE THYROXINE INDEX T7on FTI 2.41 Normal 1.30-4.50 [facility] Comment on above: Performed By: #### T SH, URIC, T7, LIPID, CMP #### [facility] [address] [address] [address] Max Peck T3U 36.0 % Normal 33.0-40.0 [facility] Comment on above: Performed By: #### T SH, URIC, T7, LIPID, CMP #### [facility] [address] [address] [address] Max Peck T4 [Mass/Vol] 6.70 ug/dL Normal 4.50-12.10 [facility] Comment on above: Performed By: #### T SH, URIC, T7, LIPID, CMP #### [facility] [address] [address] [address] Max Peck GLYCOHEMOGLOBIN A1Con 2021 ADA RECOMMENDATION SEE BELOW Normal [facility] Comment on above: Result Comment: ADA RECOMMENDED LIMIT 4.0 - 6.0 ADA THERAPEUTIC TARGET < 7.0 ACTION SUGGESTED > 7.0 Performed By: #### P SASC, VITAD #### [facility] [address] [place] [address] Dr. Max Peck Glucose [Mass/Vol] 97 mg/dL Normal [facility] Comment on above: Performed By: #### P SASC, VITAD #### [facility] [address] [place] [address] Dr. Max Peck HbA1c (Bld) [Mass fraction] 5.0 % Normal 4.5-6.2 [facility] Comment on above: Performed By: #### P SASC, VITAD #### [facility] [address] [place] [address] Dr. Max Peck LIPID PROFILEon 12-28-2021 CHOL-HDL RATIO NORM SEE BELOW Normal [facility] Comment on above: Result Comment: 3.3 - 4.4 LOW RISK 4.4 - 7.1 AVERAGE RISK 7.1 - 11.0 MODERATE RISK >11.0 HIGH RISK Performed By: #### T SH, URIC, T7, LIPID, CMP #### [facility] [address] [place] [address] Dr. Max Peck Cholesterol [Mass/Vol] 221 mg/dL Critically high <=200 [facility] Comment on above: Performed By: #### T SH, URIC, T7, LIPID, CMP #### [facility] [address] [place] [address] Dr. Max Peck Cholesterol in HDL [Mass/Vol] 41 mg/dL Normal 40-60 [facility] Comment on above: Performed By: #### T SH, URIC, T7, LIPID, CMP #### [facility] [address] [place] [address] Dr. Max Peck Cholesterol in LDL [Mass/Vol] 157.2 mg/dL Normal [facility] Comment on above: Performed By: #### T SH, URIC, T7, LIPID, CMP #### [facility] [address] [place] [address] Dr. Max Peck Cholesterol.total/Cho lesterol in HDL [Mass ratio] 5.4 {ratio} Normal [facility] Comment on above: Performed By: #### T SH, URIC, T7, LIPID, CMP #### [facility] [address] [place] [address] Dr. Max Peck HDL NORMAL > or = 60 mg/dl - LO W CARDIOVASCULAR RISK <40 mg/dl - HIGH CARDIOVASCULAR RISK Normal [facility] Comment on above: Performed By: #### T SH, URIC, T7, LIPID, CMP #### [facility] [address] [address] [address] Max Peck LDL CALC NORMAL SEE BELOW Normal [facility] Comment on above: Result Comment: <100 mg/dl OPTIMAL 100 - 129 mg/dl NEAR OR ABOVE OPTIMAL 130 - 159 mg/dl BORDERLINE HIGH 160 - 189 mg/dl HIGH >190 mg/dl VERY HIGH Performed By: #### T SH, URIC, T7, LIPID, CMP #### [facility] [address] [address] [address] Max Peck Triglyceride [Mass/Vol] 114 mg/dL Normal <=150 [facility] Comment on above: Performed By: #### T SH, URIC, T7, LIPID, CMP #### [facility] [address] [address] [address] Max Peck VLDL CALC 22.8 mg/dL Normal [facility] Comment on above: Performed By: #### T SH, URIC, T7, LIPID, CMP #### [facility] [address] [place] [address] Dr. Max Peck PROF 14(COMP METB)on 022 Albumin [Mass/Vol] 3.9 g/dL Normal 3.4-5.0 [facility] Comment on above: Performed By: #### T SH, URIC, T7, LIPID, CMP #### [facility] [address] [place] [address] Dr. Max Peck Albumin/Globulin [Mass ratio] 1.3 {ratio} Normal [facility] Comment on above: Performed By: #### T SH, URIC, T7, LIPID, CMP #### [facility] [address] [place] [address] Dr. Max Peck ALP [Catalytic activity/Vol] 63 U/L Normal 46-116 [facility] Comment on above: Performed By: #### T SH, URIC, T7, LIPID, CMP #### [facility] [address] [place] [address] Dr. Max Peck ALT [Catalytic activity/Vol] 75 U/L Critically high 16-63 [facility] Comment on above: Performed By: #### T SH, URIC, T7, LIPID, CMP #### [facility] [address] [place] [address] Dr. Max Peck Anion gap [Moles/Vol] 8.8 mmol/L Normal [facility] Comment on above: Performed By: #### T SH, URIC, T7, LIPID, CMP #### [facility] [address] [place] [address] Dr. Max Peck AST [Catalytic activity/Vol] 41 U/L Critically high 15-37 [facility] Comment on above: Performed By: #### T SH, URIC, T7, LIPID, CMP #### [facility] [address] [place] [address] Dr. Max Peck Bilirubin [Mass/Vol] 0.8 mg/dL Normal 0.2-1.0 [facility] Comment on above: Performed By: #### T SH, URIC, T7, LIPID, CMP #### [facility] [address] [place] [address] Dr. Max Peck Calcium [Mass/Vol] 9.1 mg/dL Normal 8.5-10.1 [facility] Comment on above: Performed By: #### T SH, URIC, T7, LIPID, CMP #### [facility] [address] [place] [address] Dr. Max Peck Chloride [Moles/Vol] 102 mmol/L Normal 98-107 [facility] Comment on above: Performed By: #### T SH, URIC, T7, LIPID, CMP #### [facility] [address] [place] [address] Dr. Max Peck CO2 [Moles/Vol] 33.8 mmol/L Critically high 21.0-32.0 [facility] Comment on above: Performed By: #### T SH, URIC, T7, LIPID, CMP #### [facility] [address] [address] [address] Max Peck Creatinine [Mass/Vol] 0.80 mg/dL Normal 0.70-1.30 [facility] Comment on above: Performed By: #### T SH, URIC, T7, LIPID, CMP #### [facility] [address] [address] [address] Max Peck EGFR-AF CHINESE >60 Normal >=60 [facility] Comment on above: Performed By: #### T SH, URIC, T7, LIPID, CMP #### [facility] [address] [place] [address] Dr. Max Peck EGFR-NON AF CHINESE >60 Normal >=60 [facility] Comment on above: Performed By: #### T SH, URIC, T7, LIPID, CMP #### [facility] [address] [address] [address] Max Peck Globulin (S) [Mass/Vol] 2.9 g/dL Normal [facility] Comment on above: Performed By: #### T SH, URIC, T7, LIPID, CMP #### [facility] [address] [address] [address] Max Peck Glucose [Mass/Vol] 99 mg/dL Normal 74-106 [facility] Comment on above: Performed By: #### T SH, URIC, T7, LIPID, CMP #### [facility] [address] [address] [address] Max Peck Potassium [Moles/Vol] 3.6 mmol/L Normal 3.5-5.1 [facility] Comment on above: Performed By: #### T SH, URIC, T7, LIPID, CMP #### [facility] [address] [address] [address] Max Peck Protein [Mass/Vol] 6.8 g/dL Normal 6.4-8.2 [facility] Comment on above: Performed By: #### T SH, URIC, T7, LIPID, CMP #### [facility] [address] [address] [address] Max Peck Sodium [Moles/Vol] 141 mmol/L Normal 136-145 [facility] Comment on above: Performed By: #### T SH, URIC, T7, LIPID, CMP #### [facility] [address] [address] [address] Max Peck Urea nitrogen [Mass/Vol] 16.0 mg/dL Normal 7.0-18.0 [facility] Comment on above: Performed By: #### T SH, URIC, T7, LIPID, CMP #### [facility] [address] [place] [address] Dr. Max Peck Urea nitrogen/Creatinine [Mass ratio] 20.0 mg/mg Normal [facility] Comment on above: Performed By: #### T SH, URIC, T7, LIPID, CMP #### [facility] [address] [place] [address] Dr. Max Peck TSHon 12-28-2021 TSH 1.544 uIU/mL Normal 0.358-3.740 [facility] Comment on above: Performed By: #### T SH, URIC, T7, LIPID, CMP #### [facility] [address] [place] [address] Dr. Max Peck URIC ACID SERUMon 12-28-2021 Urate [Mass/Vol] 5.4 mg/dL Normal 3.5-7.2 [facility] Comment on above: Performed By: #### T SH, URIC, T7, LIPID, CMP #### [facility] [address] [place] [address] Dr. Max Peck VITAMIN D 25 OHon 12-28-2021 VIT D 25-OH 51.2 ng/mL Normal [facility] Comment on above: Performed By: #### P SASC, VITAD #### [facility] [address] [place] [address] Dr. Max Peck VIT D RANGES SEE BELOW Normal [facility] Comment on above: Result Comment: <20 ng/mL Vit D deficient 20 - <30 ng/mL Vit D insufficient 30 - 100 ng/mL Vit D sufficient >100 ng/mL Potential Toxicity Performed By: #### P SASC, VITAD #### [facility] [id number] Max Peck Cardiovascular Lab Reporton 09-01-2020 Cardiovascular Lab Report [facility] Patient Name: Braden Rodriguez [facility] MR #: [id number] Physician: Domenic Kohler MD Department of Service Date: 07/31/2020 Medicine Birthdate: 1955 Division of Room #: CC Cardiology Adult Cardiovascular Services [facility] [address] [facility] [place] [address] Cardiovascular Laboratory Report The patient is a [...] A Domenic Kohler MD Date Dict: 09/01/2020/10:26 A/oDmenic Kohler MD Date Trans: 09/01/2020 10:51 A/sergio [id number] cc: Ester Cain M.D. [facility] [address] Alireza Moncada [facility] [id number] [place] [facility] LUMBAR SPINE 2 OR 3 VIEWSon 05-19-2019 LUMBAR SPINE 2 OR 3 VIEWS STUDY: LUMBAR SPINE 2 OR 3 VIEWS; 05/19/2019 9:49 am INDICATION: PAIN. COMPARISON: None. ACCESSION NUMBER(S): [id number] ORDERING CLINICIAN: Edgar Fairchild FINDINGS: No fracture or subluxation of the lumbar spine. L3-L5 laminectomy defects. Moderate to severe multilevel degenerative disc height loss with endplate sclerosis and osteophyte formation. Multilevel facet arthropathy. Moderate dextroscoliosis centered at L2. IMPRESSION: Severe degenerative changes of the lumbar spine. L3-L5 laminectomy defects. Normal [facility] Vital Signs Date Time Vital Sign Value Performing Clinician Facility 10-06-2024 16:07-0400 Body temperature 98.71 [degF] Mahamed Gray DPM Work Phone: [facility] 10-06-2024 16:07-0400 Diastolic blood pressure 80 mm[Hg] Mahamed Gray D PM Work Phone: [facility] 10-06-2024 16:07-0400 Heart rate 48 /min Mahamed Gray DPM Work Phone: [facility] 10-06-2024 16:07-0400 Systolic blood pressure 148 mm[Hg] Mahamed Gray DP M Work Phone: [facility] 10-06-2024 10:36-0400 Body height 182.88 cm Ester Cain MD Work Phone: [facility] 10-06-2024 10:36-0400 Body mass index (BMI) [Ratio] 28.5 kg/m2 Ester Cain MD Work Phone: [facility] 10-06-2024 10:36-0400 Body temperature 97.4 [degF] Ester Cain MD Work Phone: [facility] 10-06-2024 10:36-0400 Body weight 95.25 kg Ester Cain MD Work Phone: [facility] 10-06-2024 10:36-0400 Diastolic blood pressure 60 mm[Hg] Ester Cain MD Work Phone: [facility] 10-06-2024 10:36-0400 Heart rate 50 /min Ester Cain MD Work Phone: [facility] 10-06-2024 10:36-0400 SaO2% (BldA) [Mass fraction] 100 % Ester Cain MD Work Phone: [facility] 10-06-2024 10:36-0400 Systolic blood pressure 150 mm[Hg] Ester Cain MD Work Phone: [facility] 09-17-2024 10:41-0400 Body temperature 98.71 [degF] Mahamed Kubitz DPM Work Phone: [facility] 09-17-2024 10:41-0400 Diastolic blood pressure 56 mm[Hg] Mahamed Kubitz D PM Work Phone: [facility] 09-17-2024 10:41-0400 Heart rate 58 /min Mahamed Kubitz DPM Work Phone: [facility] 09-17-2024 10:41-0400 Systolic blood pressure 94 mm[Hg] Mahamed Kubitz DP M Work Phone: [facility] 06-16-2024 09:53-0400 Body temperature 98.29 [degF] Nurse [facility] 06-16-2024 09:53-0400 Diastolic blood pressure 79 mm[Hg] [facility] 06-16-2024 09:53-0400 Heart rate 59 /min Nurse S70 [facility] 06-16-2024 09:53-0400 SaO2% (BldA) [Mass fraction] 97 % Nurse S70 [facility] 06-16-2024 09:53-0400 Systolic blood pressure 141 mm[Hg] [facility] 06-06-2024 20:51-0400 SaO2% (BldA) [Mass fraction] 96 % ESTER CAIN [facility] Comment on above: Order Comment: Specimen Type: ARTERIAL B LOOD SPECIMENOrdering Facility: [facility] Address: [address] [place] [address] Performed By: #### A LLBG ####[facility] LABCLIA [id number] [place] [address] [place] 05-12-2024 11:13-0500 Body height 182.9 cm Katherine Keith MD Work Phone: [facility] 05-12-2024 11:13-0500 Body mass index (BMI) [Ratio] 27.8 kg/m2 Katherine Keith MD Work Phone: [facility] 05-12-2024 11:13-0500 Body weight 92.99 kg Katherine Keith MD Work Phone: [facility] 05-12-2024 11:13-0500 Diastolic blood pressure 79 mm[Hg] Katherine Hernandez Work Phone: [facility] 05-12-2024 11:13-0500 Heart rate 73 /min Katherine Keith MD Work Phone: [facility] 05-12-2024 11:13-0500 Respiratory rate 19 /min Katherine Keith MD Work Phone: [facility] 05-12-2024 11:13-0500 Systolic blood pressure 141 mm[Hg] Katherine Keith MD Work Phone: [facility] 05-12-2024 08:41-0500 Body height 182.9 cm Rhona Boss MD Work Phone: [facility] 05-12-2024 08:41-0500 Body mass index (BMI) [Ratio] 28.79 kg/m2 Rhona Boss MD Work Phone: [facility] 05-12-2024 08:41-0500 Body temperature 97 [degF] Rhona Boss MD Work Phone: [facility] 05-12-2024 08:41-0500 Body weight 96.3 kg Rhona Boss MD Work Phone: [facility] 05-12-2024 08:41-0500 Diastolic blood pressure 73 mm[Hg] Rhona Boss MD Work Phone: [facility] 05-12-2024 08:41-0500 Heart rate 67 /min Rhona Boss MD Work Phone: [facility] 05-12-2024 08:41-0500 SaO2% (BldA) [Mass fraction] 100 % Rhona Boss MD Work Phone: [facility] 05-12-2024 08:41-0500 Systolic blood pressure 157 mm[Hg] Rhona Hernandez Work Phone: [facility] 01-13-2024 13:17-0500 Body height 182.9 cm Katherine Keith MD Work Phone: [facility] 01-13-2024 13:17-0500 Body mass index (BMI) [Ratio] 27.8 kg/m2 Katherine Keith MD Work Phone: [facility] 01-13-2024 13:17-0500 Body weight 92.99 kg Katherine Keith MD Work Phone: [facility] 01-13-2024 13:17-0500 Diastolic blood pressure 68 mm[Hg] Katherine Hernandez Work Phone: [facility] 01-13-2024 13:17-0500 Heart rate 84 /min Katherine Keith MD Work Phone: [facility] 01-13-2024 13:17-0500 Systolic blood pressure 136 mm[Hg] Katherine Keith MD Work Phone: [facility] 11-12-2023 14:16-0400 Body height 182.9 cm Katherine Keith MD Work Phone: [facility] 11-12-2023 14:16-0400 Body mass index (BMI) [Ratio] 27.84 kg/m2 Katherine Keith MD Work Phone: [facility] 11-12-2023 14:16-0400 Body weight 93.1 kg Katherine Keith MD Work Phone: [facility] 11-12-2023 14:16-0400 Diastolic blood pressure 77 mm[Hg] Katherine Hernandez Work Phone: [facility] 11-12-2023 14:16-0400 Heart rate 71 /min Katherine Keith MD Work Phone: [facility] 11-12-2023 14:16-0400 Respiratory rate 18 /min Katherine Keith MD Work Phone: [facility] 11-12-2023 14:16-0400 SaO2% (BldA) [Mass fraction] 100 % Katherine Keith MD Work Phone: [facility] Comment on above: room air 11-12-2023 14:16-0400 Systolic blood pressure 146 mm[Hg] Katherine Keith MD Work Phone: [facility] 11-11-2023 13:43-0400 Blood Pressure Location Camryn AGUSTIN [facility] 11-11-2023 13:43-0400 Diastolic blood pressure 96 mm[Hg] Camryn AGUSTIN [facility] 11-11-2023 13:43-0400 Heart rate 72 /min Camryn VAMSI [facility] 11-11-2023 13:43-0400 Respiratory rate 16 /min Camryn VAMSI [facility] 11-11-2023 13:43-0400 Systolic blood pressure 136 mm[Hg] Camryn AGUSTIN [facility] 08-06-2023 09:43-0400 Body height 182.9 cm Pacc 1 Other Phone: [facility] 08-06-2023 09:43-0400 Body mass index (BMI) [Ratio] 26.43 kg/m2 Pacc 1 Other Phone: [facility] 08-06-2023 09:43-0400 Body temperature 98.1 [degF] Pacc 1 Other Phone: [facility] 08-06-2023 09:43-0400 Body weight 88.4 kg Pacc 1 Other Phone: [facility] 08-06-2023 09:43-0400 Diastolic blood pressure 69 mm[Hg] Pacc 1 Other Phone: [facility] 08-06-2023 09:43-0400 Heart rate 56 /min Pacc 1 Other Phone: [facility] 08-06-2023 09:43-0400 Respiratory rate 18 /min Pacc 1 Other Phone: [facility] 08-06-2023 09:43-0400 SaO2% (BldA) [Mass fraction] 100 % Pacc 1 Other Phone: [facility] 08-06-2023 09:43-0400 Systolic blood pressure 154 mm[Hg] Pacc 1 Other Phone: [facility] 04-30-2023 11:31-0500 Body height 182.9 cm Katherine Keith MD Work Phone: [facility] 04-30-2023 11:31-0500 Body weight 91.5 kg Katherine Keith MD Work Phone: [facility] 04-30-2023 11:31-0500 Diastolic blood pressure 69 mm[Hg] Katherine Hernandez Work Phone: [facility] 04-30-2023 11:31-0500 Heart rate 78 /min Katherine Keith MD Work Phone: [facility] 04-30-2023 11:31-0500 SaO2% (BldA) [Mass fraction] 96 % Katherine Keith MD Work Phone: [facility] 04-30-2023 11:31-0500 Systolic blood pressure 137 mm[Hg] Katherine Keith MD Work Phone: [facility] 10-30-2022 10:15-0400 Blood Pressure Location Shae Lue [facility] 10-30-2022 10:15-0400 Diastolic blood pressure 92 mm[Hg] Shae Lue [facility] 10-30-2022 10:15-0400 Heart rate 73 /min Shae Lue [facility] 10-30-2022 10:15-0400 Systolic blood pressure 145 mm[Hg] Shae Lue [facility] 10-28-2022 06:50-0400 Body height 182.88 cm MD Ester Cain Work Phone: [facility] 10-28-2022 06:50-0400 Body weight 83.91 kg MD Ester Cain Work Phone: [facility] 09-04-2022 07:45-0400 Blood Pressure Location Shae Lue [facility] 09-04-2022 07:45-0400 Diastolic blood pressure 98 mm[Hg] Shae Lue [facility] 09-04-2022 07:45-0400 Heart rate 51 /min Shae Lue [facility] 09-04-2022 07:45-0400 Respiratory rate 16 /min Shae Lue [facility] 09-04-2022 07:45-0400 Systolic blood pressure 175 mm[Hg] Shae Lue [facility] 04-03-2022 15:00-0500 Blood Pressure Location Camryn AGUSTIN [facility] [place] 04-03-2022 15:00-0500 Diastolic blood pressure 96 mm[Hg] Camryn AGUSTIN [facility] [place] 04-03-2022 15:00-0500 Heart rate 80 /min Camryn VAMSI [facility] [place] 04-03-2022 15:00-0500 Respiratory rate 16 /min Camryn VAMSI [facility] [place] 04-03-2022 15:00-0500 Systolic blood pressure 144 mm[Hg] Camryn AGUSTIN [facility] [place] Encounters Encounter Date Encounter Type Care Provider Facility Start: 11-23-2024 End: 11-23-2024 ambulatory Camryn AGUSTIN Facility:[facility] Start: 11-23-2024 End: 11-23-2024 Patient encounter procedure Camryn AGUSTIN [facility] [place] Start: 10-06-2024 End: 10-06-2024 Office outpatient visit 15 minutes Mahamed Gray DPM Work Phone: [facility] Comment on above: Foot drop, bilateral (Primary Dx); Neurogenic ulcer, 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); PAD (peripheral artery disease); Absent pulse; Idiopathic peripheral neuropathy Start: 10-06-2024 End: 10-06-2024 ambulatory MAHAMED GRAY Not Available Start: 10-06-2024 End: 10-06-2024 Bamboo flowsheet Mahamed Gray DPM Work Phone: [facility] Start: 10-06-2024 End: 10-06-2024 Bamboo flowsheet Mahamed Gray DPM Work Phone: [facility] Start: 10-06-2024 End: 10-06-2024 ambulatory Ester Cain MD Work Phone: [facility] Work Phone: Start: 10-06-2024 End: 10-06-2024 Patient encounter procedure Citlali Black [facility] Work Phone: Start: 09-27-2024 End: 09-27-2024 Patient encounter procedure CWS Mahamed Gray DPM [facility] [place] Work Phone: Start: 09-27-2024 End: 09-27-2024 ambulatory Ester Cain MD Work Phone: [facility] Work Phone: Start: 09-17-2024 End: 09-17-2024 Bamboo flowsheet Mahamed Gray DPM Work Phone: [facility] Start: 09-17-2024 End: 09-17-2024 Bamboo flowsheet Mahamed Gray DPM Work Phone: [facility] Start: 09-17-2024 End: 09-17-2024 Office outpatient new 30 minutes Mahamed Gray DPM Work Phone: [facility] Comment on above: Idiopathic periphera l neuropathy (Primary Dx); Neurogenic ulcer, 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); PAD (peripheral artery disease); Absent pulse; Foot drop, bilateral Start: 09-17-2024 End: 09-17-2024 ambulatory MAHAMED GRAY Not Available Start: 07-19-2024 End: 07-19-2024 Admission to same day surgery center Alfonso Loyd PA-C Work Phone: [facility] Comment on above: Therapy Start: 07-19-2024 End: 07-19-2024 ambulatory Alfonso Loyd PA-C Work Phone: [facility] Start: 07-15-2024 End: 07-15-2024 Admission to same day surgery center Alfonso Loyd PA-C Work Phone: [facility] Comment on above: S/P cervical spinal fusion (Primary Dx) Start: 07-15-2024 End: 07-15-2024 Telemedicine consultation with patient Alfonso Loyd PA-C Work Phone: [facility] Start: 07-15-2024 End: 07-15-2024 ambulatory KATHERINE KEITH Facility:[facility] Start: 06-29-2024 End: 06-29-2024 Telemedicine consultation with patient Alfonso Loyd PA-C Work Phone: [facility] [place] Start: 06-29-2024 End: 06-29-2024 ambulatory Alfonso Loyd PA-C Work Phone: [facility] [place] [facility] Comment on above: Spondylolysis, lumba r region (Primary Dx); S/P cervical spinal fusion X-ray scheduling Start: 06-28-2024 End: 06-28-2024 Refill Alfonso Loyd PA-C Work Phone: [facility] Comment on above: Refill Request Start: 06-22-2024 End: 06-22-2024 ambulatory Alfonso Severino PA-C Work Phone: [facility] Comment on above: Add Prednisone? Start: 06-21-2024 End: 06-21-2024 Admission to same day surgery center Katherine Keith MD Work Phone: [facility] Comment on above: Post surgery symptom s Refill Request Start: 06-21-2024 End: 06-21-2024 ambulatory Katherine Keith MD Work Phone: [facility] [place] [facility] Start: 06-16-2024 End: 06-16-2024 ambulatory ESTER Manning MERLINCandice Facility:[facility] Start: 06-16-2024 End: 06-16-2024 Patient encounter procedure Nurse Spine [facility] Main [facility] [place] Comment on above: Encounter for remova l of sara (Primary Dx) Start: 06-14-2024 End: 06-14-2024 MC Get Medical Advice Alfonso Karina PA-C Work Phone: [facility] [place] Comment on above: Med Refill Start: 06-11-2024 End: 06-11-2024 Telephone encounter Katherine Keith MD Work Phone: [facility] Comment on above: Transition Of Care Start: 06-10-2024 End: 06-10-2024 ambulatory Alfonso Bonus PA-C Work Phone: [facility] Comment on above: Sara removal Start: 06-09-2024 End: 06-09-2024 ambulatory Alfonso Bonus PA-C Work Phone: [facility] Comment on above: Bathing instructions Start: 06-08-2024 End: 06-09-2024 Orders Only Maco Tse MD Work Phone: Cardiology Comment on above: SVT (supraventricula r tachycardia) (HCC) (Primary Dx); Elevated troponin Discharge Start: 06-04-2024 End: 06-04-2024 ambulatory Alfonso Bonus PA-C Work Phone: [facility] [place] Comment on above: Neck brace Start: 06-02-2024 End: 06-08-2024 Evaluation and management of inpatient [facility] Facility:[facility] Start: 06-01-2024 End: 06-01-2024 Admission to same day surgery center Alfonso Bonus PA-C Work Phone: [facility] [place] Comment on above: Phone number for charlette rodriguesy time Start: 06-01-2024 End: 06-01-2024 ambulatory Alfonso Bonus PA-C Work Phone: [facility] [place] Start: 05-17-2024 End: 05-17-2024 ambulatory Olesya Veras RNchild development instructor [facility] Start: 05-14-2024 ambulatory [facility] Facility: [facility] Start: 05-14-2024 End: 05-14-2024 Subsequent hospital visit by physician [facility] Work Phone: [facility] Comment on above: Spinal stenosis of c ervical region [M48.02] Start: 05-12-2024 End: 05-12-2024 ambulatory [facility] Facility:[facility] Start: 05-12-2024 End: 05-12-2024 Patient encounter procedure Katherine Keith MD Work Phone: [facility] [place] [facility] Comment on above: Cervical spondylosis with myelopathy (Primary Dx); Spinal stenosis of cervical region Start: 05-12-2024 End: 05-12-2024 Admission to establishment Rhona Boss MD Work Phone: [facility] Start: 05-12-2024 End: 05-12-2024 Preprocedural examination done Rhona Boss MD Work Phone: [facility] Work Phone: Start: 05-12-2024 End: 05-12-2024 ambulatory Rhona Boss MD Work Phone: [facility] Comment on above: Pre-op evaluation (P rimary Dx); Spinal stenosis of lumbar region, unspecified whether neurogenic claudication present; Primary hypertension Start: 05-12-2024 Encounter for other preprocedural examination RHONA BOSS [facility] Start: 05-10-2024 End: 05-10-2024 ambulatory ESTER CAIN Facility:[facility] Start: 05-06-2024 End: 05-06-2024 ambulatory Katherine Keith MD Work Phone: [facility] Start: 05-06-2024 End: 05-06-2024 Patient encounter status Katherine Keith MD Work Phone: [facility] Start: 05-05-2024 End: 05-05-2024 Telemedicine consultation with patient Katherine Keith MD Work Phone: [facility] [place] Start: 05-05-2024 End: 05-05-2024 Admission to same day surgery center Katherine Keith MD Work Phone: [facility] [place] Comment on above: Neck surgery Start: 05-05-2024 End: 05-05-2024 ambulatory Katherine Keith MD Work Phone: [facility] [place] Comment on above: Cervical spondylosis with myelopathy (Primary Dx) Start: 04-06-2024 End: 04-06-2024 ambulatory Alfonso Loyd PA-C Work Phone: [facility] [place] Comment on above: Request for Medical records Start: 02-21-2024 End: 02-21-2024 ambulatory ESTER CAIN Facility:[facility] Start: 02-21-2024 End: 02-21-2024 Subsequent hospital visit by physician Mri 7 Radio Main Q (I-Stat/1.5t/3t) Work Phone: MRI [facility] Comment on above: Spinal stenosis of c ervical region [M48.02] Start: 02-03-2024 End: 02-03-2024 Orders Only Alfonso Loyd PA-C Work Phone: [facility] Comment on above: Spinal stenosis of c ervical region (Primary Dx) Start: 01-13-2024 End: 01-13-2024 Patient encounter procedure Katherine Keith MD Work Phone: [facility] [place] [facility] Comment on above: S/P lumbar fusion (P rimary Dx); Right leg weakness Start: 01-13-2024 End: 01-13-2024 ambulatory ESTER CAIN Facility:[facility] Start: 01-13-2024 End: 01-13-2024 Patient encounter procedure Emg 1 Neur Main (Max Weight: 1000) Work Phone: Neurology Start: 01-13-2024 End: 01-13-2024 ambulatory ESTER CAIN Neurology Comment on above: EMG Start: 01-13-2024 End: 01-13-2024 ambulatory KATHERINE KEITH Facility:[facility] Start: 01-13-2024 End: 01-13-2024 Subsequent hospital visit by physician Mri 4 Radio Main Q (I-Stat/1.5t/3t) Work Phone: [facility] Comment on above: Adverse effect of tr eatment, sequela [T88.9XXS] Acute low back pain, unspecified back pain laterality, unspecified whether sciatica present [M54.50] Start: 12-16-2023 End: 12-16-2023 ambulatory Camryn AGUSTIN Facility:[facility] Start: 12-16-2023 End: 12-16-2023 Patient encounter procedure Camryn AGUSTIN [facility] [place] Start: 12-05-2023 End: 12-05-2023 Telephone encounter Katherine Keith MD Work Phone: [facility] [place] [facility] Comment on above: 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 Start: 11-26-2023 End: 11-26-2023 ambulatory MD Ester Cain Work Phone: [facility] Work Phone: Start: 11-26-2023 End: 11-26-2023 Departed Referred MD Ester Cain Work Phone: [facility] Start: 11-26-2023 End: 11-26-2023 ambulatory Camryn Rodriguez VAMSI Facility:[id number] Start: 11-21-2023 End: 11-24-2023 ambulatory Alfonso Loyd PA-C Work Phone: [facility] [place] [facility] Comment on above: Tests Start: 11-12-2023 End: 11-12-2023 Patient encounter procedure Katherine Keith MD Work Phone: [facility] [place] [facility] Comment on above: Adverse effect of tr eatment, sequela (Primary Dx); Acute low back pain, unspecified back pain laterality, unspecified whether sciatica present Start: 11-12-2023 End: 11-13-2023 Follow-up encounter Katherine Keith MD Work Phone: [facility] [place] Comment on above: Follow up med reques t Start: 11-12-2023 End: 11-13-2023 ambulatory Katherine Keith MD Work Phone: [facility] [place] Start: 11-12-2023 End: 11-12-2023 Subsequent hospital visit by physician Xr Main J1-4 Work Phone: Radiology Comment on above: History of laminecto my [Z98.890] Start: 11-11-2023 End: 11-11-2023 ambulatory Katherine Keith MD Work Phone: [facility] Start: 11-11-2023 End: 11-11-2023 Follow-up encounter Katherine Keith MD Work Phone: [facility] [place] Comment on above: Surgery followup Start: 11-11-2023 End: 11-11-2023 Patient encounter procedure Camryn R VAMSI [facility] [place] Start: 11-05-2023 End: 11-05-2023 Telephone encounter Alfonso Bonus PA-C Work Phone: [facility] [place] [facility] Comment on above: Refill Request Insurance Authorizat ion Start: 10-29-2023 End: 10-30-2023 Refill Alfonso Bonus PA-C Work Phone: [facility] [place] Comment on above: Refill Request Start: 10-23-2023 ambulatory Alfonso Bonus PA-C Work Phone: [facility] [place] Comment on above: Office number Start: 10-22-2023 ambulatory Alfonso Bonus PA-C Work Phone: [facility] [place] Comment on above: Medication Start: 10-21-2023 End: 10-21-2023 ambulatory Alfonso Bonus PA-C Work Phone: [facility] [place] Comment on above: Right leg weakness ( Primary Dx); S/P lumbar fusion Fax numbers Start: 10-21-2023 End: 10-21-2023 Telemedicine consultation with patient Alfonso Bonus PA-C Work Phone: [facility] [place] Start: 10-16-2023 Telephone encounter Katherine wright MD Work Phone: Neurology Comment on above: medication Start: 10-15-2023 Refill Alfonso Bonus PA-C Work Phone: [facility] [place] Comment on above: Refill Request Start: 10-09-2023 MC Get Medical Advice Katherine Keith MD Work Phone: [facility] [place] Comment on above: Script refills Start: 10-02-2023 End: 10-04-2023 Evaluation and management of inpatient KATHERINE KEITH Facility:[facility] Start: 09-30-2023 Telephone encounter Aaron MurdockRsmichael Rocio Mcleod Comment on above: Research Start: 09-30-2023 End: 09-30-2023 Nursing evaluation of patient and report Melody Castaneda RN [facility] Comment on above: S/P lumbar spinal fu grace (Primary Dx) Start: 09-30-2023 End: 09-30-2023 ambulatory ESTER CAIN Facility:[facility] Start: 09-24-2023 Telephone encounter Judi Mclean Lew MCKEON [facility] [place] Comment on above: CARE CONTINUUM ADVIS OR ASSESSMENT Start: 09-21-2023 Refill Alfonso CANELAC Work Phone: [facility] [place] Comment on above: Refill Request Start: 09-18-2023 End: 09-18-2023 Refill Stephane Fair PA-C Work Phone: [facility] [place] Comment on above: Refill Request Start: 09-17-2023 ambulatory Katherine Keith MD Work Phone: [facility] [place] Start: 09-17-2023 Patient encounter status Margarette Keith MD Work Phone: [facility] Start: 09-16-2023 ambulatory Katherine Keith MD Work Phone: [facility] [place] Comment on above: Legs swelling Start: 09-16-2023 Telephone encounter Katherine wright MD Work Phone: Neurology Comment on above: Patient Update Start: 09-15-2023 MC Get Medical Advice Katherine Keith MD Work Phone: [facility] [place] Comment on above: Med refill Start: 09-11-2023 ambulatory Katherine Keith MD Work Phone: [facility] [place] Comment on above: Meds at home discuss ion Start: 09-09-2023 ambulatory Alfonso Loyd PA-C Work Phone: [facility] [place] Comment on above: Phzoila Rodriguez Start: 09-09-2023 Follow-up encounter Katherine wright MD Work Phone: [facility] [place] Comment on above: Surgery followup Start: 09-07-2023 End: 09-10-2023 Evaluation and management of inpatient CHRISTIANNE ZIEGLER Facility:[facility] Start: 09-05-2023 Refill Alfonso Loyd PA-C Work Phone: Medical Records Comment on above: Refill Request Start: 09-04-2023 Telephone encounter Katherine wright MD Work Phone: Neurology Comment on above: Patient Update Start: 09-02-2023 Refill Alfonso Loyd PA-C Work Phone: [facility] [place] Comment on above: Refill Request Med refill Start: 09-01-2023 Admission to [facility] Katherine Keith MD Work Phone: [facility] [place] Comment on above: 08/19/23 surgery Start: 09-01-2023 ambulatory Katherine Keith MD Work Phone: [facility] [place] Start: 08-29-2023 Telephone encounter Katherine wright MD Work Phone: Neurology Comment on above: Medication Problem Start: 08-29-2023 End: 08-29-2023 ambulatory Alfonso Loyd PA-C Work Phone: [facility] [place] Comment on above: Acute post-operative pain Start: 08-29-2023 End: 08-29-2023 Telemedicine consultation with patient Alfonso Loyd PA-C Work Phone: [facility] [place] Start: 08-26-2023 MC Get Medical Advice Katherine Keith MD Work Phone: [facility] [place] Comment on above: Oxicodone medication refill Start: 08-22-2023 End: 08-22-2023 Evaluation and management of inpatient ESTER M HOY Facility:[facility] Start: 08-19-2023 End: 08-22-2023 Evaluation and management of inpatient KATHERINE PELLE Facility:[facility] Start: 08-12-2023 End: 08-12-2023 ambulatory KATHERINE PELLE Facility:[facility] Start: 08-11-2023 Telephone encounter Judi Hackett [facility] [place] Comment on above: Follow Up Start: 08-10-2023 ambulatory Olesya Veras RN [place] [place] [id number] Comment on above: Blood Management Start: 08-06-2023 End: 08-06-2023 ambulatory ALFONSO LOYD Facility:[facility] Start: 08-06-2023 Encounter for other preprocedural examination [facility] Start: 08-06-2023 End: 08-06-2023 Admission to establishment [address] Other Phone: Pre Anesthesia Start: 08-06-2023 End: 08-06-2023 Patient encounter procedure Pacc [address] Other Phone: Pre Anesthesia Comment on above: Pre-op exam (Primary Dx); Primary hypertension; SVT (supraventricular tachycardia) (HCC); History of penicillin allergy Start: 08-06-2023 End: 08-06-2023 Preprocedural examination done Pacc [address] Other Phone: [facility] Work Phone: Start: 08-06-2023 End: 08-06-2023 ambulatory KATHERINE KEITH Facility:[facility] Start: 08-06-2023 Encounter for other preprocedural examination [facility] Start: 08-01-2023 Admission to [facility] Katherien Keith MD Work Phone: [facility] [place] Comment on above: Sooner Surgery Date Start: 08-01-2023 ambulatory Katherine Keith MD Work Phone: [facility] [place] Start: 08-01-2023 Telephone encounter Katherine wright MD Work Phone: [facility] [place] Comment on above: Patient Update Start: 07-30-2023 End: 07-30-2023 ambulatory ESTER M MERLINCandice Facility:[facility] Start: 07-14-2023 Telephone encounter Katherine wright MD Work Phone: [facility] [place] Comment on above: Forms Start: 07-11-2023 ambulatory Katherine Keith MD Work Phone: [facility] [place] Start: 07-11-2023 Patient encounter status Margarette Keith MD Work Phone: [facility] Start: 06-22-2023 Admission to [facility] Katherine Keith MD Work Phone: [facility] [place] [facility] Comment on above: Surgery date Start: 06-22-2023 ambulatory Kathreine Keith MD Work Phone: [facility] Start: 06-11-2023 ambulatory Katherine Keith MD Work Phone: [facility] Start: 06-11-2023 Documentation procedure Mark Keith MD Work Phone: [facility] [place] Comment on above: LTD Documents Start: 06-11-2023 Telephone encounter Katherine wright MD Work Phone: [facility] [place] Comment on above: Forms Start: 05-29-2023 Telephone encounter Katherine wright MD Work Phone: [facility] [place] Comment on above: Schedule Surgery Start: 05-28-2023 Admission to same da y surgery center Katherine Keith MD Work Phone: [facility] [place] Comment on above: Surgery date Start: 05-28-2023 ambulatory Katherine Keith MD Work Phone: [facility] Start: 05-23-2023 Admission to same da y surgery [place] Katherine Keith MD Work Phone: [facility] [place] Comment on above: Surgery date Start: 05-23-2023 ambulatory Katherine Keith MD Work Phone: [facility] Start: 05-19-2023 Admission to same da y surgery [place] Katherine Keith MD Work Phone: [facility] [place] Comment on above: Surgery schedule Start: 05-19-2023 ambulatory Katherine Keith MD Work Phone: [facility] Start: 05-04-2023 ambulatory KATHERINE KEITH Facility: [facility] Start: 05-04-2023 End: 05-04-2023 Subsequent hospital visit by physician [facility] Work Phone: [facility] Radiology CT Scan Comment on above: Chronic low back simba n, unspecified back pain laterality, unspecified whether sciatica present [M54.50, G89.29] Start: 04-30-2023 End: 04-30-2023 Subsequent hospital visit by physician [facility] Radiology Comment on above: History of lumbar la minectomy for spinal cord decompression [Z98.890] Start: 04-30-2023 End: 04-30-2023 Patient encounter procedure Katherine Keith MD Work Phone: [facility] [place] Comment on above: History of lumbar la [...] encounter procedure Shae Guillory [facility] Start: 10-30-2022 End: 10-30-2022 Patient encounter procedure Shae Guillory [facility] Start: 10-28-2022 End: 10-28-2022 ambulatory MD Ester Cain Work Phone: [facility] Work Phone: Start: 10-28-2022 End: 10-28-2022 Patient encounter procedure MD Ester Cain Work Phone: [facility] [place] Work Phone: Start: 09-04-2022 End: 09-04-2022 Patient encounter procedure Shae Guillory [facility] Start: 05-21-2022 End: 05-21-2022 Patient encounter procedure Camryn R NILL General Surgery Nill/Said [facility] Start: 05-07-2022 End: 05-07-2022 Patient encounter procedure Camryn R NILL General Surgery Nill/Said Javed Start: 04-22-[address] Ester Cain Facility:[id number] Start: 04-14-2022 Encounter for preprocedural laboratory examination DR CAMRYN AGUSTIN . [facility] Start: 04-11-2022 End: 04-12-2022 Encounter for preprocedural laboratory examination DR WILTON NICHOLE Facility:[facility]1 Start: 04-11-2022 End: 04-12-[address] WILTON NICHOLE Facility:[facility]1 Start: 04-03-2022 End: 04-03-2022 Patient encounter procedure Camryn R NILL General Surgery Nill/Said Javed Start: 03-16-2022 End: 03-16-2022 ambulatory [facility] Facility:H1 Start: 03-06-2022 End: 03-07-[address] ESTER CAIN . Facility:H1 Start: 01-18-2022 End: 01-19-[address] ESTER CAIN . Facility:[facility]1 Start: 01-02-2022 Encounter for genera l adult medical examination without abnormal findings DR ESTER CAIN . [facility] Start: 01-01-2022 End: 01-02-[address] ESTER CAIN . Facility:H1 Start: 12-28-2021 End: 12-29-[address] ESTER CAIN . Facility:[facility]1 Start: 12-28-2021 End: 12-29-2021 Encounter for general adult medical examination without abnormal findings DR ESTER CAIN . Facility:[facility]1 Start: 07-31-2020 End: 08-01-2020 ambulatory ESTER CAIN Facility:[facility] Procedures Date Procedure Procedure Detail Performing Clinician Start: 09-27-2024 Pulse volume recorder pneumoplethysmography Ester Cain MD Work Phone: Start: 09-17-2024 C-reactive protein Mahamed Gray DPM Work Phone: Start: 09-17-2024 Complete blood count with white cell differential, automated Mahamed Gray DPM Work Phone: Start: 09-17-2024 Comprehensive metabolic panel Mahamed pendleton DPM Work Phone: Start: 05-12-2024 Antibody screen ESTER CAIN Comment on above: Order Comment: Specimen Type: BLOOD SPEC IMENOrdering Facility: [facility] Address: [address] [place] [address] Performed By: #### T SCR30 ####CC [facility] [id number] [address] [place] Start: 02-21-2024 Mri spinal canal cervical w/o [...] DPM Work Phone: Start: 11-26-2023 Colonoscopy Camryn AGUSTIN Start: 11-12-2023 Radex spine lumbosacral 2/3 views Alfonso Loyd PA-C Work Phone: Start: 10-02-2023 Antibody screen ESTER CAIN Comment on above: Order Comment: Specimen Type: BLOOD SPEC IMENOrdering Facility: [facility] Address: [address] [place] [address] Performed By: #### T SCR ####CC MAIN BLOOD BANKCLIA [id number] [facility] [id number] [address] [facility] Start: 10-02-2023 Exploration spinal fusion Camryn AGUSTIN Start: 10-02-2023 Celaya facetectomy&foramtomy 1 sgm ea crv thrc/lmbr Camryn AGUSTIN Start: 08-06-2023 Antibody screen KATHERINE KEITH Comment on above: Order Comment: Specimen Type: BLOOD SPEC IMEN Ordering Facility: [facility] Address: [address] [place] [address] Performed By: #### T SCR30 #### ALEJANDRO BLOOD BANK CLIA [id number] [place] [address] [facility] Start: 08-06-2023 Ecg routine ecg w/least 12 lds i&r only Sanam CANELAC Work Phone: Start: 05-04-2023 Ct lumbar spine w/o contrast material Katherine Keith MD Work Phone: Start: 04-30-2023 Radex entir thrc lmbr crv sac spi w/skull 2/3 vw Katherine Keith MD Work Phone: Start: 04-30-2023 Radex spine lumbosacral minimum 4 views Alfonso Loyd PA-C Work Phone: Start: 11-27-2022 Transperineal needle biopsy of prostate Shae Sanchezdanuta Start: 10-28-2022 MR prostate wo/w con MD Ester Cain Work Phone: Start: 04-29-2022 Laparoscopic repair of obstructed hernia of anterior abdominal wall Camryn AGUSTIN Start: 12-28-2021 PSA screening Edenilson Knight Comment on above: Performed By: #### PSASC, VITAD #### [facility] [address] [place] [address] Dr. Max Peck Start: 10-08-2012 Colonoscopy Camryn AGUSTIN Start: 03-10-2012 Back structure, excluding neck (body structure) Camryn MOOREL Start: 03-10-1999 Back structure, excluding neck (body structure) Camryn MOOREL Start: 03-10-1993 Cholecystectomy Camryn MOOREL Cervical laminectomy Camryn MOOREL Excision of lesion of skin M miriam MOOREL Comment on above: jehovah's witness and shave leson left neck Extraction of [...] Camryn AGUSTIN Comment on above: x 3-- 2012, 1999 Lumbar spinal fusion Camryn MOOREL Revision of fusion o f lumbar spine Camryn MOOREL Plan of Treatment Date Care Activity Detail Author Start: 11-25-2033 Screening for malignant neoplasm of colon [facility] Start: 06-09-2027 Diabetes Screening Diabetes Screening [facility] Start: 06-05-2027 Diabetes Screening Diabetes Screening [facility] Start: 05-13-2027 Diabetes Screening Diabetes Screening [facility] Start: 12-28-2026 Prostate specific antigen measurement Prostate Cancer Screening Discussion [facility] Start: 10-03-2026 Diabetes Screening Diabetes Screening [facility] Start: 09-09-2026 Diabetes Screening Diabetes Screening [facility] Start: 09-06-2026 Diabetes Screening Diabetes Screening [facility] Start: 08-21-2026 Diabetes Screening Diabetes Screening [facility] Start: 08-05-2026 Diabetes Screening Diabetes Screening [facility] Start: 11-08-2024 Influenza vaccination [facility] Start: 10-06-2024 End: 10-06-2024 Patient encounter procedure 10/06/2024 4:15 PM EDT Office Visit [facility] [address] [place] [id number] Mahamed Gray, DPM [address] [place] [address] Arrived [facility] Comment on above: Arrived Start: 09-27-2024 Pulse volume recorder pneumoplethysmography [facility] Start: 09-17-2024 End: 09-17-2025 US.doppler Extremity arteries - bilateral for physiologic artery study at rest and with exercise VASC US PVR WITH MARCIAL Imaging High Priority Neurogenic ulcer, 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) PAD (peripheral artery disease) Absent pulse Expected: 09/17/2024 (Approximate), Expires: 09/17/2025 [facility] Work Phone: Comment on above: Expected: 09/17/2024 (Approximate), Expi res: 09/17/2025 Start: 09-17-2024 End: 09-17-2024 Patient encounter procedure 09/17/2024 10:30 AM EDT Office Visit [facility] [address] [place] [id number] Mahamed Gray, DPM [address] [place] [address] Arrived [facility] Comment on above: Arrived Start: 07-15-2024 End: 07-15-2024 Admission to same day surgery center 07/15/2024 9:00 AM EDT [facility] [address] [place] [address] [address] [place] [address] Alfonso Loyd PA-C [address] [place] [address] POST-OP 6-8WKS [facility] Comment on above: POST-OP 6-8WKS Start: 07-09-2024 End: 07-09-2024 Patient encounter procedure Radiology Comment on above: POST-OP Elevated troponin af ter spine surgery Start: 06-29-2024 End: 06-29-2024 ambulatory 06/29/2024 9:30 AM EDT [facility] [place] [address] [place] [address] Alfonso Loyd PA-C [address] [place] [address] POST-2WKS [facility] [place] Comment on above: POST-2WKS Start: 06-16-2024 End: 06-16-2024 Patient encounter procedure 06/16/2024 10:00 AM EDT Office Visit [facility] [address] [place] [address] Staple [employer] [place] [facility] Comment on above: Staple Removal Start: 06-16-2024 End: 06-16-2024 ambulatory 06/16/2024 9:00 AM EDT [facility] [place] [address] [place] [address] Alfonso Loyd PA-C [address] [place] [address] POST-2WKS [facility] [place] [facility] Comment on above: POST-2WKS Start: 06-02-2024 End: 06-02-2024 Admission to same day surgery center [facility] Comment on above: Schedule surgery CERVICAL LAMINOPLAST Y WITH DECOMPRESSION 2 OR MORE SEGMENTS Start: 06-02-2024 End: 06-02-2024 Admission to same day surgery center 06/02/2024 8:30 AM EDT - 06/02/2024 11:27 AM EDT Surgery Admitting [address] [place] [address] Katherine Keith MD [address] [place] [address] CERVICAL LAMINOPLASTY WITH DECOMPRESSION 2 OR MORE [...] Pre-op testing Expected: 05/12/2024 (Approximate), Expires: 06/02/2024 [facility] Comment on above: Expected: 05/12/2024 (Approximate), Expi res: 06/02/2024 Start: 05-12-2024 End: 05-12-2024 Patient encounter procedure 05/12/2024 11:30 AM EST Office Visit [facility] [address] [place] [address] Katherine Keith MD [address] [place] [address] PRE-OP CLEARANCE [facility] Comment on above: PRE-OP CLEARANCE Start: 05-12-2024 End: 05-12-2024 Patient encounter procedure Admitting Comment on above: PRE-OP CLEARANCE Start: 05-12-2024 End: 05-12-2024 Anesthesia consultation 05/12/2024 9:20 AM EST PAT Pre Anesthesia [address] [place] [address] 9, Pacc Main [address] [place] [address] PRE-OP CLEARANCE Pre Anesthesia Comment on above: PRE-OP CLEARANCE Start: 05-10-2024 End: 05-10-2024 Patient encounter procedure 05/10/2024 10:00 AM EST Office Visit [facility] Phone Screening [place] [address] REGISTRATION [facility] Phone Screening Comment on above: REGISTRATION Start: 05-06-2024 End: 06-02-2024 CBC W Auto Differential panel - Blood COMPLETE BLOOD COUNT AND DIFFERENTIAL Lab Routine Iron deficiency anemia, unspecified iron deficiency anemia type Expected: 05/06/2024 (Approximate), Expires: 06/02/2024 [facility] Comment on above: Expected: 05/06/2024 (Approximate), Expi res: 06/02/2024 Start: 05-06-2024 End: 06-02-2024 Ferritin [Mass/volume] in Serum or Plasma FERRITIN Lab Routine Iron deficiency anemia, unspecified iron deficiency anemia type Expected: 05/06/2024 (Approximate), Expires: 06/02/2024 [facility] Comment on above: Expected: 05/06/2024 (Approximate), Expi res: 06/02/2024 Start: 05-06-2024 End: 06-02-2024 Iron and Iron binding capacity panel - Serum or Plasma IRON AND TIBC Lab Routine Iron deficiency anemia, unspecified iron deficiency anemia type Expected: 05/06/2024 (Approximate), Expires: 06/02/2024 [facility] Work Phone: Comment on above: Expected: 05/06/2024 (Approximate), Expi res: 06/02/2024 Start: 03-10-2024 Advance Directive Discussion Advance Directive Discussion [facility] Start: 01-13-2024 End: 01-13-2024 Patient encounter procedure 01/13/2024 1:40 PM EST Office Visit [facility] [address] [place] [address] Katherine Keith MD [address] [place] [address] f/u with provider [facility] Comment on above: f/u with provider Start: 01-13-2024 End: 01-13-2024 ambulatory 01/13/2024 9:30 AM EST Procedure Neurology [address] [place] [id number] Adverse effect of treatment, sequela [T88.9XXS] Neurology Comment on above: Adverse effect of treatment, sequela [T8 8.9XXS] Start: 01-13-2024 End: 01-13-2024 Patient encounter procedure 01/13/2024 8:30 AM EST Appointment MRI Q [address] [address] MRI LUMBAR SPINE WO IVCON MRI Q Comment on above: MRI LUMBAR SPINE WO IVCON Start: 01-13-2024 End: 01-13-2024 Patient encounter procedure MRI Q Comment on above: MRI THORACIC SPINE WO IVCON Acute low back pain, unspecified back pain laterality, unspecified whether sciatica present [M54.50] Start: 11-12-2023 End: 11-12-2023 Patient encounter procedure 11/12/2023 2:20 PM EDT Office Visit [facility] [address] [place] [address] Katherine Keith MD [address] [place] [address] post op in person [facility] Comment on above: post op in person Start: 11-12-2023 End: 11-12-2023 Patient encounter procedure 11/12/2023 1:10 PM EDT Appointment Radiology [address] [place] [address] post op lumbar Radiology Comment on above: post op lumbar Start: 11-09-2023 Covid-19 Vaccine ( season) Covid-19 Vaccine ( season) [facility] Start: 11-09-2023 Covid-19 Vaccine ( season) Covid-19 Vaccine ( season) [facility] Start: 11-09-2023 Influenza vaccination [facility] Start: 10-21-2023 End: 10-21-2023 ambulatory 10/21/2023 8:50 AM EDT [facility] [place] [address] [place] [address] Alfonso Loyd PA-C [address] [place] [address] MYC Postop [facility] Comment on above: MYC Postop Start: 10-14-2023 End: 10-14-2023 Patient encounter procedure Radiology Comment on above: post op lumbar post op in person Start: 10-08-2023 End: 10-08-2023 Patient encounter procedure 10/08/2023 12:40 PM EDT Office Visit [facility] [address] [place], [place] [phone] Katherine Keith MD [address] [place] [address] post op in person [facility] [place] [facility] Comment on above: post op in person Start: 10-08-2023 End: 10-08-2023 Patient encounter procedure 10/08/2023 11:30 AM EDT Appointment Radiology [address] [place] [address] post op lumbar Radiology Comment on above: [...] 09/30/2023 10:00 AM EDT Nurse Visit [facility] [address] [place] [address] Melody Castaneda, PATRICIA Phone Education [facility] Comment on above: Phone Education Start: 09-18-2023 End: 09-18-2023 Patient encounter procedure 09/18/2023 2:00 PM EDT Office Visit [facility] Phone Screening [place] [address] Hillary [employer] [facility] Phone Screening Comment on above: Hillary Start: 09-17-2023 End: 12-17-2023 STAPHYLOCOCCUS AUREUS & MRSA SCREEN, PCR, NASAL STAPHYLOCOCCUS AUREUS & MRSA SCREEN, PCR, NASAL Lab Routine S/P lumbar spinal fusion Pre-op testing Expected: 09/17/2023, Expires: 12/17/2023 [facility] Work Phone: Comment on above: Expected: 09/17/2023, Expires: Start: 09-16-2023 End: 09-16-2023 ambulatory 09/16/2023 10:10 AM EDT [facility] [place] [address] [place] [id number] Alfonso Loyd PA-C [address] [place] [address] 2 week post op( virtual visit) [facility] [place] [facility] Comment on above: 2 week post op( virtual visit) Start: 09-02-2023 End: 09-02-2023 Admission to same day surgery center 09/02/2023 7:30 AM EDT - 09/02/2023 2:00 PM EDT Surgery Admitting [address] [place] [address] Katherine Keith MD [address] [place], [place] [phone] LAT LUMBAR SPINE FUSION Admitting Comment on [...] 7:30 AM EDT Hospital Encounter Admitting [address] [place] [address] Katherine Keith MD [address] [place] [address] History of laminectomy [Z98.890] Admitting Comment on above: History of laminectomy [Z98.890] Start: 08-29-2023 End: 08-29-2023 ambulatory 08/29/2023 8:30 AM EDT [facility] [place] [address] [place] [address] Alfonso Loyd PA-C [address] [place] [address] 2 week post op( virtual visit) [facility] [place] [facility] Comment on above: 2 week post op( virtual visit) Start: 08-28-2023 End: 08-28-2023 ambulatory 08/28/2023 10:00 AM EDT [facility]reach [facility] [address] [place], [place] [phone] Provider, Nurse Adolfo Keating [address] [place] [address] Nurse KEATING [facility] Comment on above: Nurse KEATING Start: 08-19-2023 End: 08-19-2023 Admission to same day surgery center 08/19/2023 7:30 AM EDT - 08/19/2023 2:00 PM EDT Surgery Admitting [address] [place] [address] Ktaherine Keith MD [address] [place] [address] LAT LUMBAR SPINE FUSION Admitting Comment on [...] 08/19/2023 7:30 AM EDT Hospital Encounter Admitting [address] [place] [address] Katherien Keith MD [address] [place] [address] History of laminectomy [Z98.890] Admitting Comment on above: History of laminectomy [Z98.890] Start: 08-12-2023 End: 08-12-2023 ambulatory 08/12/2023 2:00 PM EDT [facility] [place] [facility] [address] [place] [address] Provider, Nurse [facility] [address] [place] [address] ROBERTO [facility] [place] Comment on above: Nurse KEATING Start: 08-11-2023 End: 11-10-2023 CBC W Auto Differential panel - Blood COMPLETE BLOOD COUNT AND DIFFERENTIAL Lab Routine History of laminectomy Degenerative scoliosis in adult patient Pre-op testing Iron deficiency anemia, unspecified iron deficiency anemia type Expected: 08/11/2023 (Approximate), Expires: 11/10/2023 [facility] Comment on above: Expected: 08/11/2023 (Approximate), Expi res: 11/10/2023 Start: 08-11-2023 End: 11-10-2023 Ferritin [Mass/volume] in Serum or Plasma FERRITIN Lab Routine History of laminectomy Degenerative scoliosis in adult patient Pre-op testing Iron deficiency anemia, unspecified iron deficiency anemia type Expected: 08/11/2023 (Approximate), Expires: 11/10/2023 [facility] Comment on above: Expected: 08/11/2023 (Approximate), Expi res: 11/10/2023 Start: 08-11-2023 End: 11-10-2023 Iron and Iron binding capacity panel - Serum or Plasma IRON AND TIBC Lab Routine History of laminectomy Degenerative scoliosis in adult patient Pre-op testing Iron deficiency anemia, unspecified iron deficiency anemia type Expected: 08/11/2023 (Approximate), Expires: 11/10/2023 [facility] Work Phone: Comment on above: Expected: 08/11/2023 (Approximate), Expi res: 11/10/2023 Start: 08-11-2023 End: 11-10-2023 STAPHYLOCOCCUS AUREUS & MRSA SCREEN, PCR, NASAL STAPHYLOCOCCUS AUREUS & MRSA SCREEN, PCR, NASAL Lab Routine History of laminectomy Degenerative scoliosis in adult patient Pre-op testing Expected: 08/11/2023 (Approximate), Expires: 11/10/2023 [facility] Comment on above: Expected: 08/11/2023 (Approximate), Expi res: 11/10/2023 Start: 08-06-2023 End: 08-06-2023 Patient encounter procedure Pre Anesthes ia Comment on above: pre op pre op labs Start: 07-30-2023 End: 07-30-2023 Patient encounter procedure 07/30/2023 10:30 AM EDT Office [place] [phone] pre op gc [employer] Phone Screening Comment on above: pre op gc Start: 03-10-2023 Advance Directive Discussion Advance Directive Discussion [facility] Start: 03-10-2023 Behavioral Health Screening Behavioral Health Screening [facility] Start: 03-10-2023 Depression Assessment Depression Assessment [facility] Start: 11-08-2022 Covid-19 Vaccine () Covid-19 Vaccine ( season) [facility] Start: 11-08-2022 Influenza vaccination Influenza Vaccine (#1) [facility] Start: 2022 Pneumococcal Vaccine: 65+ (1 of 1 - PCV) Pneumococcal Vaccine: 65+ (1 of 1 - PCV) [facility] Start: 2017 RSV Vaccine (1 - 1-dose 60+ series) RSV Vaccine (1 - 1-dose 60+ series) [facility] Start: 2017 RSV Vaccine (1 - Risk 60-74 years 1-dose series) RSV Vaccine (1 - Risk 60-74 years 1-dose series) [facility] Start: 2012 Prostate specific antigen measurement Prostate Cancer Screening Discussion [facility] Start: 2007 Pneumococcal Vaccine: 50+ (1 of 1 - PCV) Pneumococcal Vaccine: 50+ (1 of 1 - PCV) [facility] Start: 2007 Pneumococcal Vaccine: 65+ Years (1 of 1 - PCV) Pneumococcal Vaccine: 65+ Years (1 of 1 - PCV) [facility] Start: 2007 Shingrix Vaccine (1 of 2) Shingrix Vaccine (1 of 2) [facility] Start: 2002 Diabetes Screening Diabetes Screening [facility] Start: 2002 Screening for malignant neoplasm of colon [facility] Start: 1992 Lipid panel Lipid Screening [facility] Start: 1976 Urine microalbumin profile DTaP,Tdap,Td Vaccine (1 - Tdap) [facility] Start: 1975 Annual PCP Team Chronic Disease Visit Annual PCP Team Chronic Disease Visit [facility] Start: 1975 Anxiety Screening Anxiety Screening [facility] Start: 1975 BP Controlled (<130/80) BP Controlled (<130/80) [facility] Start: 1975 Depression Screening Depression Screening [facility] Start: 1975 Hepatitis C screening Hepatitis C Screening [facility] Start: 1957 Covid-19 Vaccine (#1) Covid-19 Vaccine (#1) [facility] Start: 1957 Screening for malignant neoplasm of colon [facility] CT Cervical spine WO contrast CT CERVICAL SPINE WO IVCON Radiology Routine Spinal stenosis of cervical region 05/14/2024 9:43 AM EST [facility] Work Phone: End: 12-11-2024 CT Lumbar spine WO contrast CT LUMBAR SPINE WO IVCON Radiology Routine Acute low back pain, unspecified back pain laterality, unspecified whether sciatica present 1 Occurrences starting 11/12/2023 until 12/11/2024 [facility] Comment on above: 1 Occurrences starting 11/12/2023 until 12/11/2024 ECG COMPLETE ECG COMPLETE ECG Routine Pre-op exam 08/06/2023 8:48 AM EDT [facility] Work Phone: End: 06-08-2025 ECG COMPLETE ECG COMPLETE ECG Routine SVT (supraventricular tachycardia) (HCC) Elevated troponin 1 Occurrences starting 06/08/2024 until 06/08/2025 [facility] Work Phone: Comment on above: 1 Occurrences starting 06/08/2024 until 06/08/2025 End: 04-30-2024 EMG(NEURO/NI) EMG(NEURO/NI) EMG Routine History of lumbar laminectomy for spinal cord decompression Degenerative scoliosis in adult patient Chronic low back pain, unspecified back pain laterality, unspecified whether sciatica present 1 Occurrences starting 04/30/2023 until 04/30/2024 [facility] Work Phone: Comment on above: 1 Occurrences starting 04/30/2023 until 04/30/2024 End: 11-11-2024 EMG(NEURO/NI) EMG(NEURO/NI) EMG Routine Adverse effect of treatment, sequela 1 Occurrences starting 11/12/2023 until 11/11/2024 [facility] Comment on above: 1 Occurrences starting 11/12/2023 until 11/11/2024 End: 03-04-2025 MR Cervical spine WO contrast MRI CERVICAL SPINE WO IVCON Radiology Routine Spinal stenosis of cervical region 1 Occurrences starting 02/03/2024 until 03/04/2025 [facility] Work Phone: Comment on above: 1 Occurrences starting 02/03/2024 until 03/04/2025 End: 12-11-2024 MR Lumbar spine WO contrast MRI LUMBAR SPINE WO IVCON Radiology Routine Adverse effect of treatment, sequela 1 Occurrences starting 11/12/2023 until 12/11/2024 [facility] Comment on above: 1 Occurrences starting 11/12/2023 until 12/11/2024 End: 12-11-2024 MR Thoracic spine WO contrast MRI THORACIC SPINE WO IVCON Radiology Routine Adverse effect of treatment, sequela 1 Occurrences starting 11/12/2023 until 12/11/2024 [facility] Work Phone: Comment on above: 1 Occurrences starting 11/12/2023 until 12/11/2024 End: 04-19-2024 Radex spine lumbosacral minimum 4 views XR LUMBAR MOTION 4V AP/LAT/ FLEX/EXT Radiology Routine Spinal stenosis, lumbar region with neurogenic claudication 1 Occurrences starting 03/21/2023 until 04/19/2024 [facility] Work Phone: Comment on above: 1 Occurrences starting 03/21/2023 until 04/19/2024 End: 06-05-2025 XR Cervical spine AP and Lateral XR CERV GENERAL 2V AP/LAT Radiology Routine Spinal stenosis of cervical region 1 Occurrences starting 05/06/2024 until 06/05/2025 [facility] Comment on above: 1 Occurrences starting 05/06/2024 until 06/05/2025 End: 07-29-2025 XR Cervical spine AP and Lateral XR CERV GENERAL 2V AP/LAT Radiology Routine S/P cervical spinal fusion 1 Occurrences starting 06/29/2024 until 07/29/2025 [facility] Work Phone: Comment on above: 1 Occurrences starting 06/29/2024 until 07/29/2025 End: 08-10-2024 XR Lumbar spine AP and Lateral XR LUMBAR LIMITED 2V AP/LAT Radiology Routine History of laminectomy Degenerative scoliosis in adult patient 1 Occurrences starting 07/11/2023 until 08/10/2024 [facility] Comment on above: 1 Occurrences starting 07/11/2023 until 08/10/2024 [facility] Immunizations Immunization Date Immunization Notes Care Provider Asmita baeza 12-29-2020 influenza virus vaccine, unspecified formulation Shae Guillory [facility] 12-29-2020 SARS-CoV-2 (COVID-19 ) mRNA BNT-162b2 vax Camryn NILL [facility] [place] 06-09-2020 SARS-CoV-2 (COVID-19 ) mRNA BNT-162b2 vax Camryn NILL [facility] 05-19-2020 SARS-CoV-2 (COVID-19 ) mRNA [id number] [employer] Heckyl [facility] [place] Comment on above: Result Comment: 2022: [id number] NEGATED: Highlighted row has not occurred!04-03-2022 influenza virus vaccine, unspecified formulation [facility] NEGATED: Highlighted row has not occurred!05-27-2019 influenza virus vaccine, live, attenuated, for intranasal use [employer] [facility] Payers Date Payer Category Payer Self-pay 2015 Private Health Insurance [id number] 1959 Private Health Insurance [id number] 1957 Unknown [id number] 1957 Unknown [id number] 1957 Unknown [id number] 1957 Unknown [id number] 1957 Unknown [id number] 1957 Unknown [id number] 1957 Unknown [id number] [id number] 1957 Unknown [id number] [id number] 1957 Unknown [id number] [id number] 1957 Unknown [id number] [id number] 1957 Unknown [id number] [id number] 1957 Unknown [id number] [id number] 1957 Unknown [id number] [id number] Unknown Regular Insurance [id number] Unknown [id number] Unknown [id number] Social History Date Type Detail Facility Start: 04-03-2022 End: 09-17-2024 Tobacco smoking status Never smoked tobacco (finding) [facility] Tobacco smoking status Never [facility] Start: 04-30-2023 End: 10-06-2024 Sex Assigned At Male [facility] Start: 1955 Sex Assigned At Male [facility] Start: 09-12-2008 End: 04-30-2023 Alcohol intake Not Asked [facility] Start: 03-20-2023 Gender identity Identifies as male gender (finding) [facility] Start: 03-20-2023 Sexual orientation Heterosexual (finding) [facility] Start: 04-30-2023 Tobacco use and exposure Former smokeless tobacco user [facility] End: 03-10-1999 History of tobacco use Chews Tobacco [facility] Start: 04-30-2023 End: 10-06-2024 History of Social function [facility] Start: 08-06-2023 End: 10-06-2024 Alcohol intake Lifetime non-drinker (finding) [facility] Has the Service Route, [employer], oil, or water company threatened to shut off services in your home in past 12Mo No [facility] (I/We) worried [facility] (my/our) food would run out before (I/we) got money to buy more. Never true [facility] Tobacco smoking stat [facility] Tobacco smoking consumption unknown [facility] Start: 1955 Sex assigned at Not on file [facility] Start: 05-28-2018 Sex Male (finding) [facility] Start: 09-17-2024 Tobacco use and exposure Smokeless tobacco non-user [facility] Sexual Orientation [facility] Medical Equipment Procedure Code Equipment Code Equipment Origin al Text Equipment Identifier Dates Signify Gel Inst afill Cartridge 5cc [id number] Start: 08-19-2023 Creo Mis Locking Cap [id number] Sta rt: 08-19-2023 Graft Infuse 20g a Medium Bovine Collagen Rhbmp-2 2x1in Bone Vial Absorbable - [id number] Start: 08-19-2023 Signify Gel Inst afill [...] [id number] Start: 08-19-2023 Spacer Rise-L 3d Lordotic [id number] Spinal Nonsterile [id number] Start: 08-19-2023 Spacer Rise-L 3d Lordotic [id number] Spinal Nonsterile [id number] Start: 08-19-2023 Plate Canopy 9mm Bone Shelf Inline Spine - [id number] Start: 06-02-2024 Screw Canopy 2.6 mm 4mm Bone Self Drill Laminoplasty Spine - [id number] Start: 06-02-2024 Canopy 2.6mm Scr ew Self-Drilling 6mm [id number] Start: 06-02-2024 Functional Status Date Assessment Result Facility 06-08-2024 Are you deaf, or do you have serious difficulty hearing No 06/08/2024 3:04 PM Markus Crews RN No [facility] 06-08-2024 Are you blind, or do you have serious difficulty seeing, even when wearing glasses No 06/08/2024 3:04 PM Markus Crews RN No [facility] 06-08-2024 Do you have serious difficulty walking or climbing stairs No 06/08/2024 3:04 PM Markus Crews RN No [facility] 06-08-2024 Do you have difficul ty dressing or bathing Yes 06/08/2024 3:04 PM Markus Crews RN Yes [facility] 06-08-2024 Because of a physica l, mental, or emotional condition, do you have difficulty doing errands alone such as visiting a physician's office or shopping Yes 06/08/2024 3:04 PM Markus Crews, PATRICIA Yes [facility] 11-11-2023 Functional Status N/A [facility] 10-04-2023 Are you deaf, or do you have serious difficulty hearing No 10/04/2023 11:49 AM Hayley Parrish RN No [facility] 10-04-2023 Are you blind, or do you have serious difficulty seeing, even when wearing glasses No 10/04/2023 11:49 AM Hayley Parrish, PATRICIA No [facility] 10-04-2023 Do you have serious difficulty walking or climbing stairs No 10/04/2023 11:49 AM Hayley Parrish RN No [facility] 10-04-2023 Do you have difficul ty dressing or bathing No 10/04/2023 11:49 AM Hayley Parrish RN No [facility] 10-04-2023 Because of a physica l, mental, or emotional condition, do you have difficulty doing errands alone such as visiting a physician's office or shopping No 10/04/2023 11:49 AM Hayley Parrish RN No [facility] 12-05-2022 Functional Status N/A [facility] 10-30-2022 Functional Status N/A [facility] 09-04-2022 Functional Status No [facility] 04-03-2022 Functional Status N/A [facility] Mental Status Date Assessment Result Facility 06-08-2024 Because of a physica l, mental, or emotional condition, do you have serious difficulty concentrating, remembering, or making decisions Yes 06/08/2024 3:04 PM Markus Crews, PATRICIA Yes [facility] 10-04-2023 Because of a physica l, mental, or emotional condition, do you have serious difficulty concentrating, remembering, or making decisions No 10/04/2023 11:49 AM Hayley Parrish RN No [facility] Clinical Notes 05-07-2022 to 11-23-2024 Mahamed Gray DPM - 10/06/2024 4:15 PM Anahi Gray DPM - 09/17/2024 10:30 AM Alfonso AnneEFREN - 07/15/2024 9:04 AM Dayana AlfonsoEFREN - 06/29/2024 9:18 AM EDT Note Date & Type Note Facility 11-23-2024 Note General Surgery Offi ce/Clinic Note Chief Complaint consultation for colonoscopy HPI Staff 69 year old male presents on consultation for surveillance colonoscopy. Last colonoscopy completed 11/2023 with cecal tubulovillous adenoma. Denies abdominal or rectal pain. No rectal bleeding or change in bowel habits. Denies nausea, vomiting or weight loss. History of Present Illness 69 yo male with h/o htn, hypercholesterolemia, SVT, lumbar radiculopathy/spondylosis, presents for surveillance colonoscopy; last screening colonoscopy 1 year ago with removal of 1.5 cm tubulovillous adenoma, no dysplasia, also sigmoid diverticulosis; denies change in bms or blood in stools, no abd complaints; abd operations significant for cholecystectomy and robotic assisted ventral hernia repair; no asa or NSAID use; no tobacco [...] noncontributory. Physical Exam Vitals & Measurements HR: 76(Peripheral) RR: 16 BP: 118/76 HT: 72 in HT: 182.8 cm WT: 210.982 lb WT: 95.7 kg BMI: 28.64 HEENT: normal conjunctiva, sclera clear, no scleral [...] diastasis recti no, no hepatosplenomegaly; normal bs Musculoskeletal: normal gait, digits and nails without infection, nodes, cyanosis, clubbing. Skin: no rashes, no lesions, no ulcers, no subcutaneous nodules, induration. Psychiatric/Neuro: oriented to time, place, person, judgement normal, affect appropriate for age, insight intact, no focal deficits. Tests: , review of old records completed , Discussed surgical options, risks, and possible complications with patient. Assessment/Plan 1. Personal history of adenomatous and serrated colon polyps (Z86.0101: Personal history of adenomatous and serrated colon polyps) plan surveillance colonoscopy under anesthesia, informed consent obtained. Follow-up No qualifying data available Problem List/Past Medical History Ongoing BMI 28.0-28.9,adult BPH with obstruction/lower urinary tract symptoms Cervical radiculopathy Diverticulosis Elevated PSA Gross hematuria Hypertension Incarcerated epigastric hernia Internal hemorrhoid Intradermal nevus Lumbar radiculopathy Lumbar spondylosis Overweight Personal history of adenomatous and serrated colon polyps Pure hypercholesterolemia Screening for malignant neoplasm of [...] (04/29/2022), Colonoscopy (10/2012), Cholecystectomy (03/10/1993), Cataract extraction, Cervical laminectomy, Excision of lesion of skin, Laminectomy, Lumbar spinal fusion, Revision of fusion of lumbar spine. Medications amLODIPine 5 mg Tab, 5 mg= 1 t (more content not included)... [facility] Comment on above: Result Comment: Elec tronically Signed By: VAMSI JERNIGAN, Camryn Baker\Date and Time Signed: 11/23/24 15:15 EDT 10-06-2024 History of Present illness Narrative Images from the original note were not included. Reason for Visit: Established Patient: Recheck LT plantar hallux ulcer Second Complaint: NEW COMPLAINT: RT hallux ulcer Wound care : Established patient presents for follow up examination of LT plantar hallux ulcer. Patient is applying Vashe, Amerigel and DSD once daily to LT hallux ulcer. Pain to the LT hallux has improved since last office visit. Patient has completed both the Cipro and Bactrim DS antibiotics. Patient denies pain, fever, chills, vomiting, diarrhea, chest or calf pain. He does note some nausea. Patient is wearing slip on casual shoe LT foot with OTC ankle-foot orthotics/ AFO intact bilaterally due to drop foot bilaterally. Patient is not diabetic. Patient completed the MARCIAL/PVR study on 09-27-2024 and was notified on 09-28-2024 that a referral to the Vascular Surgeons was being placed. Patient was seen by Dr. Zayas today and he told him he is fine and his blood flow is good. Second Complaint: Patient has NEW COMPLAINT of RT plantar medial hallux ulcer for about a week. He is cleaning ulcer daily with Vashe, Amerigel and DSD. He states that there has not been any drainage from ulcer. Review of Systems: General: Chills denies. Fatigue denies. Fever denies. Night sweats denies. Endocrine: Hyperpigmentation denies. Diabetes denies. Weakness denies. Cardiovascular: Chest pain denies. Shortness of breath denies. Gastrointestinal: Constipation denies. Diarrhea denies. Nausea denies. Vomiting denies. Hematology: Anemia denies. Bleeding problems denies. Easy bruising denies. Musculoskeletal: Bone/joint symptoms denies. Leg cramps denies. Peripheral Vascular: Edema denies. Rest pain denies. Varicose veins denies. Raynaud's denies. Skin: Ulceration admits. Nail changes denies. Rash denies. Skin lesion(s)denies. Neurologic: Dizziness denies. Gait abnormality denies. Headache denies. Tingling/Numbness denies. Physical Exam The skin on the foot is cool and pulses are weak. Examination General Examination: GENERAL EXAMINATION: awake, aware of surroundings, in no acute distress. FOOT EXAM: Date of Last Foot Exam September 17, 2024 Sensory testing performed: sensations September 17, 2024 Sensory and motor testing performed: strength September 17, 2024 Pedal pulse taking performed: September 17, 2024 Vascular: DORSALIS PEDIS PULSE: barely palpable bilateral. POSTERIOR TIBIAL PULSE: non-palpable bilateral. TEMPERATURE GRADIENT: cool to cold EDEMA: minimal bilaterally VARICOSITIES: none CAPILLARY FILLING TIME(sec): 2 seconds bilateral. Patient has peripheral arterial disease at this time and with the ulceration patient will need assistance after further noninvasive vascular studies are obtained and will be ordered soon. Ankle / Foot: MUSCLE STRENGTH: Significant weakness with bilateral foot drop with OTC AFO intact. Patient has difficulty standing without holding on to my counter top at chair side. Significant weakness as expected. Neurologic: SEMMES-YESSI 5.07 MONOFILAMENT: absent to the bilateral foot. NEUROLOGIC: Peripheral neuropathy to the bilateral lower extremity. Dermatologic: SKIN FINDINGS: Skin is thin, shiny, atrophic and dry with absent pedal hair to the bilateral lower extremity. HYPERKERATOSIS: Pre-ulcerative callus: Bilateral plantar medial hallux. NAIL PATHOLOGY: Intact toenails to 1-5 bilaterally. TINEA PEDIS: none. ULCER: Plantar medial left hallux ULCER #1: Location: plantar left hallux Thickness: full Stage: neuro trophic ulcer Previous Measurement: none, Date of Exam not available. Pre Debridement Size: 0.5 cm x 0.3 cm x 0.2 cm. Post Debridement Size: no debridement performed. Tracking: none. Drainage: scant serous. Malodor: none. Base: pink healthy granular base. Wound edges: thin hyperkeratosis. Surrounding Tissue: thin dry skin with hyperkeratosis Surrounding SOI: none. ULCER #1: Location: plantar Right hallux Thickness: full Stage: neuro trophic ulcer Previous Measurement: none, Date of Exam not available. Pre Debridement Size: 0.3 cm x 0.2 cm x 0.1 cm. Post Debridement Size: no debridement performed. Tracking: none. Drainage: scant serous. Malodor: none. Base: pink healthy granular base. Wound edges: thin hyperkeratosis. Surrounding Tissue: thin dry skin with hyperkeratosis Surrounding SOI: none. Orthopedic: JOINT RANGE OF MOTION: normal. ORTHOPEDIC: bilateral foot drop SHOE GEAR EVALUATION: slip on casual shoe LT foot with OTC ankle-foot orthotics/ AFO intact bilaterally due to drop foot bilaterally. Please note ankle-foot orthotic is very weak and a more appropriate custom made device would benefit patient greatly. Imaging: Deferred. 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 Patient presents today for follow up office visit. Patient presents with NEW CHIEF COMPLAINT of now right hallux plantar ulceration. Physical examination was performed. 2. Patient was advised about wound care again. 3. Copious sterile saline flush was applied bilateral hallux ulceration followed by a thin layer of Amerigel , cover with dry sterile dressing. Patient should continue daily at home Until healed. 4.The foot should be washed daily, but not exposed to water unless covered with a waterproof bandage. 5. Offloading of the ulceration is imperative.The patient should avoid walking on the ulcer and use a walker instead. 6. Maintain complete offloading of both ulcerations. 7. Once patient obtain new custom ankle-foot orthotics with offloading of hallux ulceration locations: Ulceration should heal. 8. Patient was advised if ulcerations worsen or signs of infection would occur contact office or if after hours or on weekends or holidays please go to local emergency room. 9. Reappoint: 1 week. Please note ulceration is a very thin and could possibly heal before next week's office visit. Bilateral foot drop 1. Patient was seen today for follow up office visit. Physical examination was performed No changes as expected.. 2.The patient has drop foot in both feet as a result of back surgeries, per patient's statement. The current over the counter AFOs need modification to reduce pressure on the wound that has there was full pressure on the rigid AFO underneath the ulceration. Ulceration has no chance of healing until completely offloading. 3. Patient was advised that we did contact [facility] and they would be able to see patient's soon and evaluate for custom made ankle-foot orthotics with offloading of the area of hallux ulceration plantarly bilaterally. Physical Exam documented in this encounter [facility] 09-17-2024 History of Present illness Narrative Images from the original note were not included. Reason for Visit: NEW PATIENT: LT plantar hallux ulcer and Drop foot bilaterally Wound care : NEW PATIENT presents for ulcer on the LT plantar hallux which has been present for one month. Patient has drop foot bilaterally. Ulcer has been being treated by Dr. Cain. Patient was applying hydrocortisone cream and band aid to the ulcer until last week when he started applying Neosporin. Patient was prescribed Mupirocin 2% ointment on 09-13-[address] Cain to apply to the ulcer but patient did not know it was prescribed. Dr. Cain also prescribed a 3 day dosage of Cipro and a 10 day dosage of Bactrim DS for the patient. Patient denies pain, fever, chills,vomiting, diarrhea, chest or calf pain. Patient is having nausea and sweats but he relates this to taking the antibiotics. Patient has pain to the LT hallux. Patient is wearing slip on casual shoe LT foot with OTC ankle-foot orthotics/ AFO intact bilaterally due to drop foot bilaterally. Patient is not diabetic. Review of Systems: General: Chills denies. Fatigue denies. Fever denies. Night sweats denies. Endocrine: Hyperpigmentation denies. Diabetes denies. Weakness denies. Cardiovascular: Chest pain denies. Shortness of breath denies. Gastrointestinal: Constipation denies. Diarrhea denies. Nausea denies. Vomiting denies. Hematology: Anemia denies. Bleeding problems denies. Easy bruising denies. Musculoskeletal: Bone/joint symptoms denies. Leg cramps denies. Peripheral Vascular: Edema denies. Rest pain denies. Varicose veins denies. Raynaud's denies. Skin: Ulceration admits. Nail changes denies. Rash denies. Skin lesion(s)denies. Neurologic: Dizziness denies. Gait abnormality denies. Headache denies. Tingling/Numbness denies. Physical Exam The skin on the foot is cool and pulses are weak. Examination General Examination: GENERAL EXAMINATION: awake, aware of surroundings, in no acute distress. FOOT EXAM: Date of Last Foot Exam September 17, 2024 Sensory testing performed: sensations September 17, 2024 Sensory and motor testing performed: strength September 17, 2024 Pedal pulse taking performed: September 17, 2024 Vascular: DORSALIS PEDIS PULSE: barely palpable bilateral. POSTERIOR TIBIAL PULSE: non-palpable bilateral. TEMPERATURE GRADIENT: cool to cold EDEMA: minimal bilaterally VARICOSITIES: none CAPILLARY FILLING TIME(sec): 2 seconds bilateral. Patient has peripheral arterial disease at this time and with the ulceration patient will need assistance after further noninvasive vascular studies are obtained and will be ordered soon. Ankle / Foot: MUSCLE STRENGTH: Significant weakness with bilateral foot drop with OTC AFO intact. Patient has difficulty standing without holding on to my counter top at chair side. Significant weakness as expected. Neurologic: SEMMES-YESSI 5.07 MONOFILAMENT: absent to the bilateral foot. NEUROLOGIC: Peripheral neuropathy to the bilateral lower extremity. Dermatologic: SKIN FINDINGS: Skin is thin, shiny, atrophic and dry with absent pedal hair to the bilateral lower extremity. HYPERKERATOSIS: Pre-ulcerative callus: Bilateral plantar medial hallux. NAIL PATHOLOGY: Intact toenails to 1-5 bilaterally. TINEA PEDIS: none. ULCER: Plantar medial left hallux ULCER #1: Location: plantar left hallux Thickness: full Stage: neuro trophic ulcer Previous Measurement: none, Date of Exam not available. Pre Debridement Size: 0.5 cm x 0.3 cm x 0.2 cm. Post Debridement Size: no debridement performed. Tracking: none. Drainage: scant serous. Malodor: none. Base: pink healthy granular base. Wound edges: thin hyperkeratosis. Surrounding Tissue: thin dry skin with hyperkeratosis Surrounding SOI: none. Orthopedic: JOINT RANGE OF MOTION: normal. ORTHOPEDIC: bilateral foot drop SHOE GEAR EVALUATION: slip on casual shoe LT foot with OTC ankle-foot orthotics/ AFO intact bilaterally due to drop foot bilaterally. Please note ankle-foot orthotic is very weak and a more appropriate custom made device would benefit patient greatly. Imaging: Deferred. 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 Patient presents today for original office visit. Physical examination was performed. 2. Patient was advised about wound care at length. Patient seems to understand the concept very well. 3.The wound is clean and healthy, but there is a concern about blood flow. Neuropathy is a significant risk factor for wound development, and it also affects skin integrity, making it more prone to wounds. The goal is to treat the current wound and prevent future ones. Blood flow is suboptimal, and the skin temperature is lower than expected. The wound does not appear infected, so a culture will not be taken as it would likely be contaminated. The pain is likely due to the wound rather than neuropathy. 4. Noninvasive vascular study should be obtained to assist with limb salvage in increased vascularity if needed. 5.The dressing will be changed with Vashe and Amerigel once daily, or twice if the foot becomes sweaty. Patient was dispensed 1 tube of Amerigel and advised this would not be covered through insurance. Patient voiced understanding and acceptance. 6.The foot should be washed daily, but not exposed to water unless covered with a waterproof bandage. 7. Offloading of the ulceration is imperative.The patient should avoid walking on the ulcer and use a walker instead. 8. Labs: Labs were ordered to check protein levels, as adequate nutrition is crucial for wound healing. The patient should increase protein intake. 9. Patient was given extensive education about neuropathy, ulcers, and wound care. He was given educational handout on the same and advised to read this multiple times provided handout on foot care, which is applicable due to the neuropathy. 10.The patient should continue taking antibiotics until the course is completed to prevent resistance. Bilateral foot drop 1. Patient was seen today for original office visit. Physical examination was performed. 2.The patient has drop foot in both feet as a result of back surgeries, per patient's statement. The current over the counter AFOs need modification to reduce pressure on the wound that has there was full pressure on the rigid AFO underneath the ulceration. Ulceration has no chance of healing until completely offloading. 3. Patient was advised that we will contact [facility] that specializes in braces to see if they can modify the existing AFOs. If they can not, alternative options will be explored. The patient should use the walker to avoid putting pressure on the foot. 3. Neuropathy. 1. Patient is seen today for original office visit. Physical examination was performed. 2. Patient was advised about the possible risks and complications of neuropathy at length verbally as well as educational handout. We discussed sensory, motor, autonomic neuropathy as well as balance issues. 3.Neuropathy is contributing to the patient's wound and affecting skin integrity. The patient should follow the neuropathy foot care guidelines provided in the handout. 4. Reappoint: 1 week. documented in this encounter [facility] 07-15-2024 Note [facility] 07-15-2024 History of Present illness Narrative Images from the original note were not included. SPINE SURGERY FOLLOW UP This is a virtual visit using [employer] Video Visit. It required patient-provider interaction for the medical decision making as documented below. I have communicated my name and active licensure. The patient's identity and physical location were verified at the time of this visit. Either the patient or their legal airline security representative has been informed of the risks [...] 9:13 AM PAGER: documented in this encounter [facility] 06-29-2024 Note [facility] 06-29-2024 History of Present illness Narrative Images from the original note were not included. SPINE SURGERY FOLLOW UP This is a virtual visit using [employer] Video Visit. It required patient-provider interaction for the medical decision making as documented below. I have communicated my name and active licensure. The patient's identity and physical location were verified at the time of this visit. Either the patient or their legal airline security representative has been informed of the risks [...] advised to coordinate cardiology care with existing management trainee in [place] since he does not want to come to [facility]. The majority of the visit was spent counseling and/or coordinating care for the patient. Total face to face time was 30 minutes. SIGNATURE: Alfonso Loyd PA-C PATIENT NAME: Braden Rodriguez DATE: June 29, 2024 TIME: 9:20 AM PAGER: documented in this encounter [facility] 06-21-2024 Telephone encounter Note Neuro SPINE CARE COORDINATION QUICK NOTE Patient requesting oxycodone refill. Last filled: 06/15/24 Surgery: 06/02/24 F/U: 06/29/24 [facility] 06-21-2024 Miscellaneous Notes Neuro SPINE CARE COORDINATION QUICK NOTE Patient requesting oxycodone refill. Last filled: 06/15/24 Surgery: 06/02/24 F/U: 06/29/24 documented in this encounter [facility] 06-16-2024 Note [facility] 06-16-2024 History of Present illness Narrative [...] Garcia Lomax LPN documented in this encounter [facility] 06-14-2024 Telephone encounter Note Had on 06/02/2024 [...] hours Taking Oxycodone 2 every 5 hours. [facility] 06-14-2024 Miscellaneous Notes Had on 06/02/2024 SURGERY/PROCEDURE: [...] every 5 hours. documented in this encounter [facility] 06-11-2024 Telephone encounter Note Neuro SPINE CARE [...] Luciano RN June 11, 2024 11:30 AM [facility] Work Phone: 06-11-2024 Miscellaneous Notes Neuro SPINE [...] 2024 11:30 AM documented in this encounter [facility] 06-10-2024 Telephone encounter Note Operations During Hospitalization: 06/02/2024: C3, C7 dome laminectomy, C4-6 laminoplasty [facility] 06-10-2024 Miscellaneous Notes Operations During Hospitalization: 06/02/2024: C3, C7 dome laminectomy, C4-6 laminoplasty documented in this encounter [facility] 06-09-2024 Telephone encounter Note Operations During Hospitalization: 06/02/2024: C3, C7 dome laminectomy, C4-6 laminoplasty Shared with RN team for review. [facility] 06-09-2024 Miscellaneous Notes Operations During Hospitalization: 06/02/2024: C3, C7 dome laminectomy, C4-6 laminoplasty Shared with RN team for review. documented in this encounter [facility] 06-08-2024 Note [facility] 06-08-2024 Note [facility] 06-08-2024 Note [facility] 06-07-2024 Note HNO ID: [id number] Author: VIVEROS, MARKUS, RN Service: Nursing Author Type: Registered Nurse Type: Nursing Progress Note Filed: 06/07/2024 18:52 Note Text: Pt refusing telemetry. Mariel Haley notified. [facility] 06-07-2024 Note [facility] 06-07-2024 Note [facility] 06-06-2024 Note [facility] 06-05-2024 Note [facility] 06-04-2024 Note [facility] 06-03-2024 Note [facility] 06-03-2024 Note [facility] 06-03-2024 Note [facility] 06-03-2024 Note [facility] 06-03-2024 Note [facility] 06-02-2024 Note [facility] 06-02-2024 Note [facility] 06-02-2024 Note [facility] 06-02-2024 Note [facility] 05-17-2024 Note [facility] 05-17-2024 History of Present illness Narrative Patient referred to Blood Management for pre-surgical optimization. Hgb 14.9 which exceeds Blood Management guidelines for intervention. documented in this encounter [facility] 05-14-2024 History of Present illness Narrative Radiology [...] PATIENT PRESENTS WITH AN IMPLANTABLE OR ATTACHED SUPPLIER MANAGER: No RADIOLOGY DEPARTMENT: CT; Exam(s) Completed: CSP PERIPHERAL IV DATA: Not applicable SIGNED BY: DEON Sierra May 14, 2024 9:44 AM documented in this encounter [facility] 05-14-2024 Note HNO ID: [id number] Author: ZHANG RODRÍGUEZ CT Service: Radiology Author [...] PATIENT PRESENTS WITH AN IMPLANTABLE OR ATTACHED SUPPLIER MANAGER: No RADIOLOGY DEPARTMENT: CT; Exam(s) Completed: CSP PERIPHERAL IV DATA: Not applicable SIGNED BY: DEON Sierra May 14, 2024 9:44 AM [facility] 05-12-2024 Note [facility] 05-12-2024 History of Present illness Narrative [...] CT then discuss possible laminoplasty. SIGNATURE: Katherine Pelle, MD PATIENT NAME: Braden Rodriguez DATE: May 12, 2024 TIME: 12:22 PM PAGER: documented in this encounter [facility] 05-12-2024 Instructions Rhona Boss MD - 05/12/2024 8:53 AM EST Images from the original note were not included. [facility]est[facility] PATIENT PREOPERATIVE INSTRUCTIONS Katherine Keith MD has scheduled you for your procedure at this surgery center: [facility] [place] Scheduling Office: [phone] --[address] [place] [address]. Please read below carefully for your personalized [...] office. If you are currently using a [id number] injectable or oral medication for diabetes or [...] or other anticoagulants without consulting with your management trainee or prescribing physician. - Stop ALL herbal [...] please check with your dialysis center or log manager to see if any adjustments need to [...] Procedures: - YOU MUST HAVE A RESPONSIBLE PUNCH FINISHER TAKE YOU HOME. A SSAS DEVELOPER OR ALUMINUM WELDER CANNOT BE MADE A RESPONSIBLE PUNCH FINISHER. - We recommend that a responsible person [...] call the Friday before. Your surgeon s scheduler conveyor will tell you what time to call the office. - If you have not reached the departmental scheduler conveyor by 5 P.M., call [phone] after 5 P.M. the day before your surgery. Please be aware that emergency situations arise, which may delay or change your surgical time. If this happens, we will notify you as soon as possible and regret any inconvenience. If you already have an Advance Directive, please fax a copy to [phone] or email to for it to be [...] Rhona Boss MD documented in this encounter [facility] 05-12-2024 History and physical note Images from [...] [facility] Procedure:: [facility] Status of surgery/procedure:: Scheduled Date of surgery/procedure:: [...] fevers. Neurological: No history of TIA's, stroke, MARKETING AGENT tumor, impaired sensorium, hemiplegia, paraplegia or quadraplegia. [...] 402 QTC Calculation (Bazett) 411 Calculated P Ventress 59 Calculated R Ventress 48 Calculated T Ventress 72 Impression NORMAL SINUS RHYTHM POSSIBLE LEFT ATRIAL ENLARGEMENT BORDERLINE ECG No results found for this or any previous visit (from the past 26212 hours). Instructions Given to Patient: Instructions located in the after visit summary. Patient given verbal and written preop instructions and voices comprehension and compliance. SIGNATURE: Rhona Boss MD PATIENT NAME: Braden Rdoriguez DATE: May 12, 2024 TIME: 8:38 AM PAGER/CONTACT #: [facility] 05-12-2024 History and physical note Images from the original note were not included. [facility] HISTORY AND PHYSICAL EXAMINATION SERVICE DATE: 05/12/2024 SERVICE TIME: 8:38 AM PRIMARY CARE PHYSICIAN: Ester Cain MD Assessment Patient has the following medical conditions which may affect frazaneh-operative course: Braden Rodriguez is a 69 year [...] [facility] Status of surgery/procedure:: Scheduled Date of surgery/procedure:: [...] fevers. Neurological: No history of TIA's, stroke, MARKETING AGENT tumor, impaired sensorium, hemiplegia, paraplegia or quadraplegia. [...] 402 QTC Calculation (Bazett) 411 Calculated P Ventress 59 Calculated R Ventress 48 Calculated T Ventress 72 Impression NORMAL SINUS RHYTHM POSSIBLE LEFT ATRIAL ENLARGEMENT BORDERLINE ECG No results found for this or any previous visit (from the past 22350 hours). Instructions Given to Patient: Instructions located in the after visit summary. Patient given verbal and written preop instructions and voices comprehension and compliance. SIGNATURE: Rhona Boss MD PATIENT NAME: Braden Rodriguez DATE: May 12, 2024 TIME: 8:38 AM PAGER/CONTACT #: documented in this encounter [facility] 05-05-2024 Note [facility] 02-26-2025 History of Present illness Narrative Virtual visit: I have communicated my name and active licensure. The patient's identity and physical location were verified at the time of this visit. Either the patient or their legal airline security representative has been informed of the risks and benefits of -- and alternatives to -- treatment through a remote evaluation and consents to proceed with the evaluation remotely. 10 minutes Follow up virtual visit. Last seen 01/12/25 and we decided to continuing to monitor his right foot drop which persisted. His left foot was starting to make some progress. He reports no change control specialist the last 3 months. He feels like [...] Katherine Keith MD documented in this encounter [facility] 02-21-2024 History of Present illness Narrative Radiology [...] PATIENT PRESENTS WITH AN IMPLANTABLE OR ATTACHED SUPPLIER MANAGER: No RADIOLOGY DEPARTMENT: MR; Exam(s) Completed: Spine: Cervical spine PERIPHERAL IV DATA: Not applicable SIGNED BY: RT Lydia(R) February 21, 2024 4:25 PM documented in this encounter [facility] 02-21-2024 Note [facility] 02-03-2024 Telephone encounter Note Attempted to contact patient regarding Cervical MRI that was ordered Left detailed message on patient identified voicemail. Number to schedule provided. [facility] 02-03-2024 Miscellaneous Notes Attempted to contact patient regarding Cervical MRI that was ordered Left detailed message on patient identified voicemail. Number to schedule provided. documented in this encounter [facility] 01-13-2024 Note [facility] 01-13-2024 History of Present illness Narrative [...] Christopher MD (AJ) documented in this encounter [facility] 01-13-2024 Note [facility] 01-13-2024 History of Present illness Narrative [...] Care Visit completed when applicable. Mis Grimes, assembler truck trailer Brian Mckeon MD documented in this encounter [facility] 01-13-2024 History of Present illness Narrative Radiology [...] PATIENT PRESENTS WITH AN IMPLANTABLE OR ATTACHED SUPPLIER MANAGER: No RADIOLOGY DEPARTMENT: MR; Exam(s) Completed: Spine: Thoracic spine and Lumbar spine PERIPHERAL IV DATA: Not applicable SIGNED BY: RT Blossom(R) January 13, 2024 7:51 AM documented in this encounter [facility] 01-13-2024 Note [facility] 01-13-2024 History of Present illness Narrative [...] PATIENT PRESENTS WITH AN IMPLANTABLE OR ATTACHED SUPPLIER MANAGER: No RADIOLOGY DEPARTMENT: CT; Exam(s) Completed: Spine PERIPHERAL IV DATA: Not applicable SIGNED BY: RT Cj(R) January 13, 2024 8:52 AM documented in this encounter [facility] 01-13-2024 Note [facility] 12-05-2023 Telephone encounter Note Called patient to follow up after steroid taper. No answer. Left message to return call to the office. [facility] 12-05-2023 Miscellaneous Notes Called patient to follow up after steroid taper. No answer. Left message to return call to the office. documented in this encounter [facility] 11-13-2023 Note Addended by: ALFONSO LOYD on: 11/13/2023 04:25 PM Modules accepted: Orders [facility] 11-13-2023 Miscellaneous Notes Addended by: ALFONSO LOYD on: 11/13/2023 04:25 PM Modules accepted: Orders documented in this encounter [facility] 11-12-2023 Note [facility] 11-12-2023 History of Present illness Narrative [...] above Meenakshi Morin MD Spine Surgery Fellow [id number] [facility]: [facility] ([facility]) [facility]: [id number] I reviewed the information obtained and documented by the fellow. I examined the patient and evaluated all available films and pertinent documents. We discussed the case and I agree with the plans as outlined in this note. SIGNATURE: Katherine Keith MD PATIENT NAME: Braden Rodriguez DATE: November 12, 2023 TIME: 2:47 PM PAGER: documented in this encounter [facility] 11-12-2023 History of Present illness Narrative Radiology [...] PATIENT PRESENTS WITH AN IMPLANTABLE OR ATTACHED SUPPLIER MANAGER: No RADIOLOGY DEPARTMENT: General X-ray: Exam(s) Completed: Spine X-Ray(s): Lumbar AP / LAT / L5-S1 PERIPHERAL IV DATA: Not applicable SIGNED BY: RT Guillermo(Michael) November 12, 2023 1:13 PM documented in this encounter [facility] 11-12-2023 Note [facility] 11-11-2023 Telephone encounter Note Patient returned call and was transferred to RN Discussed we will not be able to refill the narcotic until tomorrow, and will review in office tomorrow. Patient also has questions and concerns for the nerve pain and right foot drop that has persisted. No further questions, he voiced appreciation for the call [facility] 11-11-2023 Miscellaneous Notes Patient returned call and [...] to the office. documented in this encounter [facility] 11-11-2023 Telephone encounter Note Attempted to contact patient to discuss his my chart message and medication refill request. Left message to return call to the office. [facility] 11-05-2023 Telephone encounter Note Prior auth completed, awaiting approval [facility] 11-05-2023 Miscellaneous Notes Prior auth completed, awaiting approval [facility] called re Rx Refill, needs a Pre-auth because insurance only cover 2 refills. Pls do the pre-auth through: covermymeds. The gibbons: [id number] (low/upper is ok). Pls let [facility] know once it's approved by call [phone] documented in this encounter [facility] 11-05-2023 Telephone encounter Note Prior auth completed [id number] [facility] 11-05-2023 Miscellaneous Notes Prior auth completed [id number] Received a fax from Cover My Meds requesting a prior authorization for: Hydrocodone-Acetaminophen 5-325 MG Tablets Cover My Meds Gibbons: [id number] Pharmacy: [id number] Fax scanned in to pt's chart for our records. documented in this encounter [facility] 11-05-2023 Telephone encounter Note Received a fax from [employer] My [employer] requesting a prior authorization for: Hydrocodone-Acetaminophen 5-325 MG Tablets Cover My Meds Gibbons: [id number] Pharmacy: [id number] Fax scanned in to pt's chart for our records. [facility] 11-05-2023 Telephone encounter Note [facility] called re Rx Refill, needs a Pre-auth because insurance only cover 2 refills. Pls do the pre-auth through: covermymeds. The gibbons: [id number] (low/upper is ok). Pls let [facility] know once it's approved by call [phone] [facility] 10-23-2023 Note Addended by: ALFONSO LOYD on: 10/23/2023 11:22 AM Modules accepted: Orders [facility] 10-23-2023 Miscellaneous Notes Addended by: ALFONSO LOYD on: 10/23/2023 11:22 AM Modules accepted: Orders Called [facility] pharmacy and confirmed they do not have the Randolph available. Pharmacist cancelled order. Will update JUDY to send to new pharmacy listed. documented in this encounter [facility] 10-23-2023 Telephone encounter Note Called [facility] pharmacy and confirmed they do not have the Randolph available. Pharmacist cancelled order. Will update JUDY to send to new pharmacy listed. [facility] 10-21-2023 Note [facility] 10-21-2023 History of Present illness Narrative SPINE SURGERY FOLLOW UP This is a virtual visit using [employer] Video Visit. It required patient-provider interaction for the medical decision making as documented below. I have communicated my name and active licensure. The patient's identity and physical location were verified at the time of this visit. Either the patient or their legal airline security representative has been informed of the risks [...] DATA REVIEW [facility] records independently reviewed ASSESSMENT/PLAN (Y31.894) Right leg weakness (primary encounter diagnosis) (Z98.1) [...] 8:40 AM PAGER: documented in this encounter [facility] 10-16-2023 Telephone encounter Note Noted medication update. No Issue for change from surgical standpoint. [facility] 10-16-2023 Miscellaneous Notes Noted medication update. No Issue for change from surgical standpoint. Naye from Dr. Ester Cain's office called. Pt was seen yesterday complaining of the side effect from Gabapentin and the doctor change the medication to Lyrica 50 mg. documented in this encounter [facility] 10-16-2023 Telephone encounter Note Naye from Dr. Ester Cain's office called. Pt was seen yesterday complaining of the side effect from Gabapentin and the doctor change the medication to Lyrica 50 mg. [facility] Work Phone: 10-09-2023 Note Addended by: ALFONSO LOYD on: 10/09/2023 03:44 PM Modules accepted: Orders [facility] 10-09-2023 Miscellaneous Notes Addended by: ALFONSO LOYD on: 10/09/2023 03:44 PM Modules accepted: Orders documented in this encounter [facility] 10-04-2023 Note [facility] 10-04-2023 Note [facility] 10-04-2023 Note [facility] 10-03-2023 Note [facility] 10-03-2023 Note [facility] 10-02-2023 Note [facility] 10-02-2023 Note [facility] 09-30-2023 Telephone encounter Note Summary: Research [...] Medical Student Visiting Researcher OUTCOMES RESEARCH MAIN [facility] 09-30-2023 Miscellaneous Notes Summary: Research Interest: POUR [...] OUTCOMES RESEARCH MAIN documented in this encounter [facility] 09-30-2023 Note [facility] 09-30-2023 History of Present illness Narrative Neuro SPINE CARE COORDINATION PRE-OP VISIT Met with patient via phone for pre op education. Given both written and verbal instructions re : Skin prep, wound care, pain management and post op restrictions. Provided to patient: [facility] Surgery Guide, skin prep supplies, Spine Surgery Pre/post op education packet. Yes Reviewed with patient to report to desk [employer] for surgery ? Yes. Reviewed with the patient to call [phone] the day before to get surgery report [...] Melody Castaneda RN documented in this encounter [facility] 09-24-2023 Telephone encounter Note CARE CONTINUUM ADVISOR ASSESSMENT PRIMARY CARE PHYSICIAN: Ester Cain MD OR Surgery Date: 10/02/23 Health Insurance: [employer] Financial Resources: Retired Primary Contact: Extended Emergency Contact Information Primary Emergency Contact: Marycarmen Rodriguez Address: [address] [place] [address] Mobile Relation: Spouse Secondary Emergency Contact: NORA RODRIGUEZ Mobile Relation: Son Other Important Patient Contacts: None 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 No FREEDOM OF CHOICE: Level of Care Discussed: Home Care Financial Disclosure Provided: No Financial Disclaimer Provided: No Provider List: Home Care Provider list within the patient's requested geographic area shared with the patient/family: Yes - Within [address] of [address] [place] [address] Provider Choices Collected Home Health: no prefernece Interventions: N/A SIGNATURE: DALLAS Barros PATIENT NAME: Braden Rodriguez DATE: September 24, 2023 TIME: 1:00 PM PAGER/CONTACT #: [facility] 09-24-2023 Miscellaneous Notes CARE CONTINUUM ADVISOR ASSESSMENT PRIMARY CARE PHYSICIAN: Ester Cain MD OR Surgery Date: 10/02/23 Health Insurance: [employer] [facility] [place] Financial Resources: Retired Primary Contact: Extended Emergency Contact Information Primary Emergency Contact: Marycarmen Rodriguez Address: [address] [place] [address] Mobile Relation: Spouse Secondary Emergency Contact: NORA RODRIGUEZ Mobile Relation: Son Other Important Patient Contacts: None 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 No FREEDOM OF CHOICE: Level of Care Discussed: Home Care Financial Disclosure Provided: No Financial Disclaimer Provided: No Provider List: Home Care Provider list within the patient's requested geographic area shared with the patient/family: Yes - Within [address] of [address] [place] [address] PAC Provider Choices Collected Home Health: no prefernece Interventions: N/A SIGNATURE: DALLAS Barros PATIENT NAME: Braden Rodriguez DATE: September 24, 2023 TIME: 1:00 PM PAGER/CONTACT #: CM was able to leave a brief detailed message on identified vm requesting call back to discuss post op care. AYANA provided contact information. documented in this encounter [facility] 09-24-2023 Telephone encounter Note CM was able to leave a brief detailed message on identified vm requesting call back to discuss post op care. CM provided contact information. [facility] 09-16-2023 Telephone encounter Note Attempted to return call to home care PT Patient is coming back in for surgery in 2 weeks. Does not nee home care at this time. [facility] 09-16-2023 Miscellaneous Notes Attempted to return call to home care PT Patient is coming back in for surgery in 2 weeks. Does not nee home care at this time. Call received for Katherine Keith MD regarding Braden Rodriguez. Caller: Other: [facility] Patient Identified by Name and : Yes Reason for Call: Devin is calling to notify Dr. Keith that patient has not been seen for PT Devin states patient will not return calls Is there any additional information the provider should know? No, no response needed Last Office Visit: 09/04/2023 Next scheduled appointment: 10/08/2023 Best number to reach caller: Devin [phone] Best time to reach caller: 9 am till 5 pm Is it OK to leave a detailed voice message? Yes Melia Vieyra documented in this encounter [facility] 09-16-2023 Telephone encounter Note Call received for Katherine Keith MD regarding Braden Rodriguez. Caller: Other: Devin with [facility] Patient Identified by Name and : Yes Reason for Call: Devin is calling to notify Dr. Keith that patient has not been seen for PT Devin states patient will not return calls Is there any additional information the provider should know? No, no response needed Last Office Visit: 09/04/2023 Next scheduled appointment: 10/08/2023 Best number to reach caller: Devin [phone] Best time to reach caller: 9 am till 5 pm Is it OK to leave a detailed voice message? Yes Melia Ochoa Bilingual Sales Representative [facility] 09-15-2023 Note Addended by: STEPHANE FAIR on: 09/15/2023 01:41 PM Modules accepted: Orders [facility] 09-15-2023 Miscellaneous Notes Addended by: STEPHANE FAIR [...] PA-C Spine Surgery documented in this encounter [facility] 09-15-2023 Telephone encounter Note Reviewed in patient notes Covering provider for Alfonso Loyd PA-C and Katherine Keith MD Patient's request for medication is as follows: Requested Prescriptions Pending Prescriptions Disp Refills oxyCODONE IR (ROXICODONE) 10 mg tab 42 tablet 0 Sig: Take 1 tablet by mouth every 4 hours as needed for pain for up to 7 days. Stephane Fair PA-C Spine Surgery [facility] 09-12-2023 Note Addended by: ALFONSO LOYD on: 09/12/2023 02:35 PM Modules accepted: Orders [facility] 09-12-2023 Miscellaneous Notes Addended by: ALFONSO LOYD on: 09/12/2023 02:35 PM Modules accepted: Orders documented in this encounter [facility] 09-10-2023 Note [facility] 09-10-2023 Note [facility] 09-10-2023 Note [facility] 09-09-2023 Note [facility] 09-09-2023 Note [facility] 09-09-2023 Note [facility] 09-08-2023 Note [facility] 09-08-2023 Note [facility] 09-05-2023 Telephone encounter Note Script was sent on 09/03. [facility] 09-05-2023 Miscellaneous Notes Script was sent on 09/03. documented in this encounter [facility] 09-04-2023 Telephone encounter Note Pt has an order that is from PA. Arianne For Home Health Care. Marianne from [facility] called and said pt was refusing Home Health. I did as her to call the ordering PA, she wanted it noted in his chart here, as well [facility] 09-04-2023 Miscellaneous Notes Pt has an order that is from REMI Acuña. For Home Health Care. Marianne from [facility] called and said pt was refusing Home Health. I did as her to call the ordering PA, she wanted it noted in his chart here, as well documented in this encounter [facility] 09-02-2023 Telephone encounter Note Patient phones requesting refills as follows: Requested Prescriptions Pending Prescriptions Disp Refills oxyCODONE IR (ROXICODONE) 5 mg immediate release tablet 42 tablet 0 Sig: Take 1 tablet by mouth every 4 hours for 7 days. Last visit: 08/29/2023 Pharmacy: [id number] Pharm[facility] Current Dosage: Patient is currently taking 1 tab every 4 hrs; Has enough for several days left. Please review and advise; ph: [phone] Tara Gatica KAHR medicalrenee [facility] 09-02-2023 Miscellaneous Notes Patient phones requesting refills as follows: Requested Prescriptions Pending Prescriptions Disp Refills oxyCODONE IR (ROXICODONE) 5 mg immediate release tablet 42 tablet 0 Sig: Take 1 tablet by mouth every 4 hours for 7 days. Last visit: 08/29/2023 Pharmacy: [id number] Pharmacy Current Dosage: Patient is currently taking 1 tab every 4 hrs; Has enough for several days left. Please review and advise; ph: [phone] Tara DomingoRevolve Roboticsrenee documented in this encounter [facility] 09-01-2023 Telephone encounter Note Returned call to [...] review with Dr Keith and follow up. [facility] 09-01-2023 Miscellaneous Notes Returned call to patient [...] and follow up. documented in this encounter [facility] 08-29-2023 Telephone encounter Note Returned call to pharmacy. Advised Vikas Loyd did speak to patient regarding stopping the Randolph and taking Oxy. Also getting his pain medication through us during this post op time period. He voiced appreciation. No further questions. [facility] 08-29-2023 Miscellaneous Notes Returned call to pharmacy. Advised Vikas Loyd did speak to patient regarding stopping the Randolph and taking Oxy. Also getting his pain medication through us during this post op time period. He voiced appreciation. No further questions. Call received for Katherine Keith MD regarding Braden Rodriguez. Caller: Sandeep, Pharmacist [facility] Patient Identified by Name and : [...] appointment: 10/08/2023 Best number to reach caller: [phone] Best time to reach caller: any Is it OK to leave a detailed voice message? Yes Winnie Quesada documented in this encounter [facility] 08-29-2023 Telephone encounter Note Call received for Katherine Keith MD regarding Braden Rodriguez. Caller: Viviane Hopkins [facility] Patient Identified by Name and : [...] appointment: 10/08/2023 Best number to reach caller: [phone] Best time to reach caller: any Is it OK to leave a detailed voice message? Yes Winnie Quesada [facility] 08-29-2023 Note [facility] 08-29-2023 History of Present illness Narrative SPINE SURGERY FOLLOW UP This is a virtual visit using [employer] Video Visit. It required patient-provider interaction for the medical decision making as documented below. I have communicated my name and active licensure. The patient's identity and physical location were verified at the time of this visit. Either the patient or their legal airline security representative has been informed of the risks [...] operative pain is now more tolerable. Using Randolph from his PCP which is not as [...] His PCP filled his lat prescription for Randolph which is not providing relief. We discussed [...] 8:20 AM PAGER: documented in this encounter [facility] 08-22-2023 Note [facility] 08-21-2023 Note [facility] 08-21-2023 Note [facility] 08-20-2023 Note [facility] 08-20-2023 Note [facility] 08-20-2023 Note [facility] 08-20-2023 Note [facility] 08-19-2023 Note [facility] 08-19-2023 Note [facility] 08-19-2023 Note [facility] 08-11-2023 Telephone encounter Note CM was able to leave a brief detailed message on identifed vm requesting call back to discuss post op care. CM provided contact information. [facility] 08-11-2023 Miscellaneous Notes CM was able to leave a brief detailed message on identifed vm requesting call back to discuss post op care. CM provided contact information. documented in this encounter [facility] 08-10-2023 Note [facility] 08-10-2023 History of Present illness Narrative Patient referred to Blood Management for pre-surgical optimization. Hgb 15.1 which exceeds Blood Management guidelines for intervention. documented in this encounter [facility] 08-06-2023 History and physical note HISTORY AND [...] over the last year. Relieving factors include Randolph and steroids. Aggravating factors include repetitive movement. [...] fevers. Neuro: No history of TIA's, stroke, MARKETING AGENT tumor, impaired sensorium, hemiplegia, paraplegia or quadraplegia. No neurological symptoms or problems. Respiratory: No history of current cough or dyspnea, or pneumonia in the past 6 weeks. No history of respiratory/pulmonary symptoms or problems. Cardiovascular:+htn, SVT Negative for Recent VT, Angina, CAD, Chest Pain GI: No history [...] Braden Rodriguez DATE: 08/06/2023 TIME: 10:18 AM T [facility] 08-06-2023 History and physical note HISTORY AND [...] over the last year. Relieving factors include Randolph and steroids. Aggravating factors include repetitive movement. [...] COVID-19 original vaccine, age 12+ yr, monovalent ([email or web address] - PURPLE TOP) 06/09/2020 Imm Admin: COVID-19 original vaccine, age 12+ yr, monovalent ([email or web address] - PURPLE TOP) 05/19/2020 Imm Admin: COVID-19 original vaccine, age 12+ yr, monovalent ([employer] - PURPLE TOP) REVIEW OF SYSTEMS: PAIN ASSESSMENT: Pain Pain Level: 5 Pain Location: Leg-Left Description: Aching, Burning, Cramping, Numbness, Pulsating, Raw, Sharp, Shooting, Spasm, Throbbing, Tingling Duration Amount of Time: 5 Duration Units: Months Frequency: Continuous Intervention/Comfort measure: Medication General: No weight loss, malaise or fevers. Neuro: No history of TIA's, stroke, MARKETING AGENT tumor, impaired sensorium, hemiplegia, paraplegia or quadraplegia. No neurological symptoms or problems. Respiratory: No history of current cough or dyspnea, or pneumonia in the past 6 weeks. No history of respiratory/pulmonary symptoms or problems. Cardiovascular:+htn, SVT Negative for Recent VT, Angina, CAD, Chest Pain GI: No history [...] TIME: 10:18 AM documented in this encounter [facility] 08-01-2023 Telephone encounter Note Duplicate, patient already spoke to RN (see phone encounter). [facility] 08-01-2023 Miscellaneous Notes Duplicate, patient already spoke to RN (see phone encounter). documented in this encounter [facility] 08-01-2023 Telephone encounter Note Patient accepts sooner date of 08/18 New education class on 08/11 at 2 PM Will change post ops He voiced appreciation. No further questions. [facility] 08-01-2023 Miscellaneous Notes Patient accepts sooner date of 08/18 New education class on 08/11 at 2 PM Will change post ops He voiced appreciation. No further questions. Patient is returning nurse call pertaining to below message, sooner appt call back [phone] Called patient to offer sooner surgery date Left message to return call to the office documented in this encounter [facility] 08-01-2023 Telephone encounter Note Patient is returning nurse call pertaining to below message, sooner appt call back [phone] [facility] 08-01-2023 Instructions Sanam Gill PA-C - 08/01/2023 9:35 AM EDT PATIENT PREOPERATIVE INSTRUCTIONS Katherine Keith MD has scheduled you for your procedure at this surgery center: [facility] Scheduling Office: [phone] [address] [place] [address]. Please read below carefully for your personalized instructions. Arrival Time for Surgery: - To obtain your arrival time for surgery, call your physician's office the day before your surgery. - If your surgery is scheduled for Friday, call the Friday before. Your surgeon s scheduler conveyor will tell you what time to call the office. - If you have not reached the departmental scheduler conveyor by 5 P.M., call [phone] after 5 P.M. the day before your [...] Advance Directive, please fax a copy to [phone] or email to for it to be [...] Sanam Gill PA-C documented in this encounter [facility] 08-01-2023 Telephone encounter Note Called patient to offer sooner surgery date Left message to return call to the office [facility] 07-14-2023 Telephone encounter Note Received, Reviewed [employer] Disability Attending Physician Statement FLMA forms and need signed by Dr. Keith Sent to Dr. Keith via Docusign for signature Leave dates: 09/02/23-11/07/23 No Post op appt scheduled as of yet. Garcia Maldonado LPN [facility] 07-14-2023 Miscellaneous Notes Received, Reviewed [employer] Disability Attending Physician Statement FL[employer] forms and need signed by Dr. Keith Sent to Dr. Keith via Docusign for signature Leave dates: 09/02/23-11/07/23 No Post op appt scheduled as of yet. Garcia Maldonado LPN documented in this encounter [facility] 06-12-2023 Miscellaneous Notes Neuro SPINE CARE COORDINATION QUICK NOTE Called patient to discuss disability paperwork. His PCP has completed his previous STD paperwork Patient is not scheduled for surgery until August. Discussed this office will be able to complete his disability paperwork postop Advised to reach out to his PCP to continue with disability until surgery. Patient states [employer] only needs office note. This office will fax over the office note from 04/30 No further questions. I received [employer] ([employer]) forms for LTD. I called patient to explain we don't complete LTD, but he stated that he is not currently working and have exhausted his STD. He states the form is due 06/12/23. Sending to CC. Oliver to review Received Attending Physician's Statement from [employer]. Sent via [employer] for processing. documented in this encounter [facility] 05-29-2023 Miscellaneous Notes Neuro SPINE CARE COORDINATION [...] non-home discharge disposition : Low [5.2] Melody Tonya, RN Surgery Planning Name: Braden Rodriguez Age: [...] Dr. Katherine Keith:04/30 Please schedule PAT for [place] the week of 08/04. Please schedule pre op consent with Dr Keith: n/a Please schedule pre op RN education phone call: 08/27 at 10 AM Nurse ROBERTO Please schedule 2 week post op C Karina ( virtual visit) Please schedule post op [...] N/A TREK/ N/A documented in this encounter [facility] 05-04-2023 History of Present illness Narrative Radiology [...] PATIENT PRESENTS WITH AN IMPLANTABLE OR ATTACHED SUPPLIER MANAGER: No RADIOLOGY DEPARTMENT: CT; Exam(s) Completed: Spine PERIPHERAL IV DATA: Not applicable SIGNED BY: MARY Gomes) May 04, 2023 8:09 AM documented in this encounter [facility] 05-04-2023 Note HNO ID: [id number] Author: BLANCA PRICE RT (R) Service: Radiology [...] PATIENT PRESENTS WITH AN IMPLANTABLE OR ATTACHED SUPPLIER MANAGER: No RADIOLOGY DEPARTMENT: CT; Exam(s) Completed: Spine PERIPHERAL IV DATA: Not applicable SIGNED BY: MARY Gomes) May 04, 2023 8:09 AM [facility] 04-30-2023 History of Present illness Narrative Radiology [...] PATIENT PRESENTS WITH AN IMPLANTABLE OR ATTACHED SUPPLIER MANAGER: No RADIOLOGY DEPARTMENT: General X-ray: Exam(s) Completed: Spine X-Ray(s): Scoliosis Series PERIPHERAL IV DATA: Not applicable SIGNED BY: RT Jimbo(R) April 30, 2023 1:42 PM documented in this encounter [facility] 04-30-2023 History of Present illness Narrative Images [...] Ester Cain MD REFERRING PROVIDER: Tobi Angeles [id number] [facility] [place] [id number] Consult requested for an opinion regarding the [...] 11:51 AM PAGER: documented in this encounter [facility] 04-30-2023 History of Present illness Narrative Radiology [...] PATIENT PRESENTS WITH AN IMPLANTABLE OR ATTACHED SUPPLIER MANAGER: No RADIOLOGY DEPARTMENT: General X-ray: Exam(s) Completed: Spine X-Ray(s): Lumbar AP / LAT / L5-S1 / FLEX-EXT PERIPHERAL IV DATA: Not applicable SIGNED BY: RT Guillermo(Michael) April 30, 2023 10:47 AM documented in this encounter [facility] 03-21-2023 History of Present illness Narrative Requesting to see Dr. Keith Left leg pain, trouble walking, numbness in the leg, weakness. He has tried: PT, NSAID, steroids, MR, Tramadol Previous surgery x 3 at [facility] Lumbar MRI report with severe central stenosis of L3-4 and L4-5. XR ordered for an appointment with Dr. Keith. Patient name: Braden Rodriguez Are you being referred by a Center for Spine Health Provider or Pain Management Provider at [facility]? No If answer is YES [...] facility where the MRI/CT/myelogram was completed: MRI [facility] [address] [place] [id number] MRI/CT/myelogram viewable in Epic: No If not, please provide [phone] to fax in imaging reports for review. Also, please inform patient to hand carry imaging disc to appointment. XR (spine) within 12 months: Yes If YES, please ask for the name/address of the facility where the XR was completed: Dr. Tobi Angeles MD [address], [place] [address] Dr. Davis's patients: Have you had previous [...] completed Starting PT 03/20/2023 for drop foot [facility] [address] [place] [id number] Have you tried any other kinds of [...] [facility] the [facility] Additional Comments [phone] documented in this encounter [facility] 12-05-2022 Hospital Discharge instructions Patient Education 12/05/2022 [...] treatment? Where to find more information The [employer]: www.cancer.org [place] [employer] Association: www.auanet.org Contact a health care [...] provider. Document Revised: 08/20/2021 Document Reviewed: 08/20/2021 [employer] Patient Education 2022 [employer]. Follow Up Care 11/27/2022 14:43:00 With:Kahlil JERNIGAN, MARLENA Salmon, URO Address: When: Unknown [facility] 10-30-2022 Hospital Discharge instructions [...] treatment? Where to find more information The [place] [employer]: www.cancer.org [place] U[employer] Association: www.auanet.org Contact a health care [...] provider. Document Revised: 08/20/2021 Document Reviewed: 08/20/2021 [employer] Patient Education 2022 [employer]. Follow Up Care 09/04/2022 08:48:35 With:Kahlil JERNIGAN, MARLENA Salmon, URO Address: When:Within 2 Month(s) Comments:w/PSA [facility] [place] 09-04-2022 Hospital Discharge instructions Patient Education 09/04/2022 [...] treatment? Where to find more information The [place] [employer]: www.cancer.org [place] U[employer] Association: www.auanet.org Contact a health care [...] provider. Document Revised: 08/20/2021 Document Reviewed: 08/20/2021 [employer] Patient Education 2022 [employer]. Follow Up Care 08/26/2022 10:02:45 With:Kahlil JERNIGAN, Shae Powell, MARLENA, URO Address: When:Within 4 Week(s) Comments:w/ NINA [facility] 05-07-2022 Hospital Discharge instructions Follow Up Care 05/07/2022 15:08:01 With:Camryn AGUSTIN MD, SUR Address: [address] [place] [address]- When: only if needed General Surgery [facility] Evaluation + Plan note No data available for this section General Surgery [place] Evaluation + Plan note Future Appointments Appointment Date:05/21/2022 02:40:00 PM Scheduled Provider:Camryn AGUSTIN MD Location:[facility] Appointment Type:GS Post Op 15 General Surgery Psonar Evaluation + Plan note Future Appointments Appointment Date:09/24/2022 01:40:00 PM Scheduled Provider:Camryn AGUSTIN MD Location:[facility] Appointment Type:GS Established 15 Appointment Date:09/25/2022 08:45:00 AM Scheduled Provider:Shae Guillory MD Location:[facility] Appointment Type:URO Office Visit Diagnostic Tests PendingPSA Total 09/04/22PSA Free & Total 09/04/22 [facility] Evaluation + Plan note Future Appointments Appointment Date:01/08/2023 09:00:00 AM Scheduled Provider:Shae Guillory MD Location:[facility] Appointment Type:URO Office Visit Diagnostic Tests PendingPSA Free & Total 10/30/22 [facility] [place] Evaluation + Plan note Future Appointments Appointment Date:04/23/2023 09:45:00 AM Scheduled Provider:Shae Guillory MD Location:[facility] Appointment Type:URO Office Visit Diagnostic Tests PendingPSA Free & Total 12/05/22 [facility] Evaluation note No assessment inform ation available [facility] Work Phone: Evaluation note Diagnosis Spinal [...] [facility] Acute post-operative pain [facility]* Diagnosis Acute post-operative pain documented in this encounter [facility] [place]* Diagnosis Acute post-operative pain documented in this encounter [facility] note* Diagnosis S/P lumbar fusion- Primary Arthrodesis status documented in this encounter [facility] note* Diagnosis S/P lumbar spinal fusion- Primary Arthrodesis status Pre-op testing Preoperative examination, unspecified S/P lumbar spinal fusion Arthrodesis status documented in this encounter [facility] note* Diagnosis S/P lumbar fusion Arthrodesis status S/P lumbar spinal fusion Arthrodesis status documented in this encounter [facility]* Diagnosis S/P lumbar spinal fusion- Primary Arthrodesis status S/P lumbar spinal fusion Arthrodesis status documented in this encounter [facility] note* Diagnosis Post-op pain- Primary Other acute postoperative pain documented in this encounter [facility] note* Diagnosis Post-op pain Other acute postoperative pain documented in this encounter [facility] note* Diagnosis Right leg weakness- Primary Other musculoskeletal symptoms referable to limbs S/P lumbar fusion Arthrodesis status documented in this encounter [facility] note* Diagnosis Post-op pain Other acute postoperative pain documented in this encounter [facility] note* Diagnosis Acute post-operative pain SVT (supraventricular [...] acute postoperative pain documented [facility] this encounter [facility] [place]* Diagnosis Acute post-operative pain SVT (supraventricular [...] acute postoperative pain [facility] Acute post-operative pain SVT (supraventricular [...] in adult patient [facility] Diagnosis Acute post-operative pain SVT (supraventricular [...] whether sciatica present [facility] Diagnosis Acute post-operative pain SVT (supraventricular [...] referable to limbs [facility] [place] Diagnosis Acute post-operative pain SVT (supraventricular [...] of treatment, sequela [facility] Diagnosis Acute post-operative pain SVT (supraventricular [...] of treatment, sequela [facility] Diagnosis Acute post-operative pain SVT (supraventricular [...] whether sciatica present [facility] [place] Diagnosis Acute post-operative pain SVT (supraventricular [...] malaise and fatigue [facility] [place] [facility] Diagnosis Acute post-operative pain SVT (supraventricular [...] in cervical region [facility] Diagnosis Acute post-operative pain SVT (supraventricular [...] in cervical region [facility] Diagnosis Acute post-operative pain SVT (supraventricular [...] in cervical region [facility] Diagnosis Acute post-operative pain SVT (supraventricular [...] in cervical region [facility] [place] Diagnosis Acute post-operative pain SVT (supraventricular [...] in cervical region [facility] [place] [facility] Diagnosis Acute post-operative pain SVT (supraventricular [...] in cervical region [facility] [place] [facility] Diagnosis Acute post-operative pain SVT (supraventricular [...] in cervical region [facility] [place] [facility] Diagnosis Acute post-operative pain Scoliosis of [...] abnormal blood chemistry [facility] Acute post-operative pain Scoliosis of [...] removal of sutures [facility] Diagnosis Acute post-operative pain Scoliosis of [...] acute postoperative pain [facility] [place] Diagnosis Acute post-operative pain Scoliosis of [...] acute postoperative pain [facility] [place] [facility] Diagnosis Acute post-operative pain Scoliosis of [...] fusion Arthrodesis [facility] Diagnosis Acute post-operative pain Scoliosis of [...] Primary Arthrodesis status documented in this encounter [facility] note* Diagnosis Idiopathic peripheral neuropathy- Primary Unspecified hereditary and idiopathic peripheral neuropathy Neurogenic ulcer, 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) PAD (peripheral artery disease) Unspecified peripheral vascular disease Absent pulse Other symptoms involving cardiovascular system Foot drop, bilateral Other acquired deformity of ankle and foot documented in this encounter [facility] note* Diagnosis Foot drop, bilateral- Primary Other acquired deformity of ankle and foot Neurogenic ulcer, 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) PAD (peripheral artery disease) Unspecified peripheral vascular disease Absent pulse Other symptoms involving cardiovascular system Idiopathic peripheral neuropathy Unspecified hereditary and idiopathic peripheral neuropathy [facility] No data available for this section General Surgery [place] note No data available for this section General Surgery Javed Reason for referral (narrative)* Diagnostic Procedure Only (Routine) - Pending Review Specialty Diagnoses / Procedures Referred By Lencho atkins Referred To Contact XR IMAGING Diagnoses Spinal stenosis, lumbar region with neurogenic claudication Procedures XR LUMBAR MOTION 4V AP/LAT/ FLEX/EXT RADEX SPINE LUMBOSACRAL MINIMUM 4 VIEWS Alfonso Loyd PA-C [address] [place] [address] Xr Imaging [place] [address] Referral ID Status Reason Start Date Expiration Date Visits Requested Visits Authorized [id number] Pending Review Auto-Generat ed Referral 03/21/2023 04/19/2024 1 1 [facility] for referral (narrative)* Diagnostic Procedure Only (Routine) [...] W/SKULL 2/3 VW Katherine Keith MD [address] [place] [address] [place] [address] Referral ID Status Reason Start Date Expiration Date V isits Requested Visits Authorized [id number] Closed Auto-Generate d Referral 04/30/2023 05/29/2024 1 1 [facility] for referral (narrative)* Diagnostic Procedure Only (Routine) - Closed Specialty Diagnoses / Procedures Referred By Contac t Referred To Contact XR IMAGING Diagnoses Spinal stenosis, lumbar region with neurogenic claudication Procedures XR LUMBAR MOTION 4V AP/LAT/ FLEX/EXT RADEX SPINE LUMBOSACRAL MINIMUM 4 VIEWS Alfonso Loyd PA-C [address] [place] [id number] Xr Imaging [facility] Referral ID Status Reason Start Date Expiration Date V isits Requested Visits Authorized [id number] Closed Auto-Generate d Referral 03/21/2023 04/19/2024 1 1 [facility] for referral (narrative)* Outpatient Procedure (Routine) - Pending Review Specialty Diagnoses / Procedures Referred By Contac t Referred To Contact [facility] Diagnoses Pre-op exam Procedures ECG COMPLETE ECG ROUTINE ECG W/LEAST 12 LDS W/I&R Sanam Gill PA-C [address] [place] [address] [facility] [place] [address] [place] [address] Referral ID Status Reason Start Date Expiration Date Visits Requested Visits Authorized [id number] Pending Review Auto-Generat ed Referral 08/06/2023 08/05/2024 1 1 [facility] for referral (narrative)* Diagnostic Procedure Only (Routine) - Closed Specialty Diagnoses / Procedures [facility] To Contact XR IMAGING Diagnoses History of laminectomy Degenerative scoliosis in adult patient Procedures XR LUMBAR LIMITED 2V AP/LAT RADEX SPINE LUMBOSACRAL 2/3 VIEWS Alfonso Loyd PA-C [address] [place] [address] Xr Imaging [place] [address] Referral ID Status Reason Start Date Expiration Date V isits Requested Visits Authorized [id number] Closed Auto-Generate d Referral 07/11/2023 08/09/2024 1 1 [facility] for referral (narrative)* Outpatient Procedure (Routine) - Pending Review Specialty Diagnoses / Procedures [facility] To [facility] Diagnoses Adverse effect of treatment, sequela Procedures EMG(NEURO/NI) NERVE CONDUCTION STUDIES 9-10 STUDIES Katherine Keith MD [address] [place] [address] Neurological [place] [address] [place] [address] Referral ID Status Reason Start Date Expiration Date Visits Requested Visits Authorized [id number] Pending Review Auto-Generat ed Referral 11/12/2023 11/11/2024 1 1 * MRI/CT (Routine) - Authorized Specialty Diagnoses / Procedures [facility] Ref[facility] To Contact CT IMAGING Diagnoses Acute low back pain, unspecified back pain laterality, unspecified whether sciatica present Procedures CT LUMBAR SPINE WO IVCON CT LUMBAR SPINE W/O CONTRAST MATERIAL Katherine Keith MD [id number] Imaging [place] [address] Referral ID Status Reason Start Date Expiration Date Visits Requested Visits Authorized [id number] Authorized Auto-Generat ed Referral 11/12/2023 12/11/2024 1 1 * MRI/CT (Routine) - Authorized Specialty Diagnoses / Procedures Referred By Contac t Referred To Contact MR IMAGING Diagnoses Adverse effect of treatment, sequela Procedures MRI LUMBAR SPINE WO IVCON MRI SPINAL CANAL LUMBAR W/O CONTRAST MATERIAL Katherine Keith MD [address] [facility] [place] [address] Mr Imaging [place] [address] Referral ID Status Reason Start Date Expiration Date Visits Requested Visits Authorized [id number] Authorized Auto-Generat ed Referral 11/12/2023 12/11/2024 1 1 * MRI/CT (Routine) - Authorized Specialty Diagnoses / Procedures Referred By Contac t Referred To Contact MR IMAGING Diagnoses Adverse effect of treatment, sequela Procedures MRI THORACIC SPINE WO IVCON MRI SPINAL CANAL THORACIC W/O CONTRAST MATRL Katherine Keith MD [address] [place] [address] Mr Imaging [place] [address] Referral ID Status Reason Start Date Expiration Date Visits Requested Visits Authorized [id number] Authorized Auto-Generat ed Referral 11/12/2023 12/11/2024 1 1 [facility] for referral (narrative)* Diagnostic Procedure Only (Routine) - Closed Specialty Diagnoses / Procedures Referred By Contac t Referred To Contact MR IMAGING Diagnoses Spinal stenosis of cervical region Procedures MRI CERVICAL SPINE WO IVCON MRI SPINAL CANAL CERVICAL W/O CONTRAST Alfonso Campos PA-C [address] [facility] [place] [address] Mr Imaging [facility] Referral ID Status Reason Start Date Expiration Date V isits Requested Visits Authorized [id number] Closed Auto-Generate d Referral 02/21/2024 03/09/2024 1 1 [facility] for referral (narrative)No reason for [facility] Phone: Reason for visit Narrative* MRI/CT (Routine) - Closed Specialty Diagnoses / Procedures Referred By Lencho t Referred To Contact CT IMAGING Diagnoses Spinal stenosis of cervical region Procedures CT CERVICAL SPINE WO IVCON CT CERVICAL SPINE W/O CONTRAST MATERIAL Katherine Keith MD [address] [place] [address] Phone: tel: fax: CT IMAGING [place] [address] Referral ID Status Reason Start Date Expiration Date V isits Requested Visits Authorized [id number] Closed Auto-Generate d Referral 05/14/2024 03/09/2025 1 1 [facility] Summary Purpose Family History No Family History [...] No Family History Records Found Advance Directives Date [...] September 27, 2024 1:1 4pm Ref by Kubitz, absent pulses chronic ulc er of skin October 06, 2024 10:18am Reason for Referral Specialty Diagnoses / Procedures Referred By Lencho atkins Referred To Contact MR IMAGING Diagnoses Spinal stenosis of cervical region Procedures MRI CERVICAL SPINE WO IVCON MRI SPINAL CANAL CERVICAL W/O CONTRAST MATRL Alfonso Loyd PA-C [address] [place] [phone] Mr Imaging [facility] Referral ID Status Reason Start Date Expiration Date Visits Requested Visits Authorized [id number] New Request Auto-Generat ed Referral 03/04/2025 1 1 Specialty Diagnoses / Procedures Referred By Contac t Referred To Contact CT IMAGING Diagnoses Acute low back pain, unspecified back pain laterality, unspecified whether sciatica present Procedures CT LUMBAR SPINE WO IVCON CT LUMBAR SPINE W/O CONTRAST MATERIAL Katherine Keith MD [address] [facility] [place] [id number] Imaging [facility] Referral ID Status Reason Start Date Expiration Date V isits Requested Visits Authorized [id number] Closed Auto-Generate d Referral 11/12/2023 12/11/2024 1 1 Specialty Diagnoses / Procedures Referred By Contac t Referred To Contact MR IMAGING Diagnoses Adverse effect of treatment, sequela Procedures MRI LUMBAR SPINE WO IVCON MRI SPINAL CANAL LUMBAR W/O CONTRAST MATERIAL Katherine Keith MD [address] [facility] [place] [address] Mr Imaging [id number] Referral ID Status Reason Start Date Expiration Date V isits Requested Visits Authorized [id number] Closed Auto-Generate d Referral 11/12/2023 12/11/2024 1 1 Specialty Diagnoses / Procedures Referred By Contac t Referred To Contact [facility] Diagnoses Right leg weakness S/P lumbar fusion Procedures CONSULT TO PHYSICAL THERAPY PHYSICAL THERAPY EVALUATION HIGH COMPLEX 45 MINS Alfonso Loyd PA-C [address] [place] [address] [facility] [place] [id number] [place] [address] Referral ID Status Reason Start Date Expiration Date Visits Requested Visits Authorized [id number] Pending Review Auto-Generat ed Referral 10/21/2023 10/20/2024 1 1 Specialty Diagnoses / Procedures Referred By Contac t Referred To Contact Diagnoses History of laminectomy Degenerative scoliosis in adult patient Pre-op testing Procedures REFER TO [facility] - PRE ANESTHESIA CONSULTATION CLINIC OFFICE/OUTPATIENT [facility] MDM 60 MINUTES Alfonso Loyd PA-C [address] [place] [address] Referral ID Status Reason Start Date Expiration Date Visits Requested Visits Authorized [id number] Authorized PCP Requested Referral 07/11/2023 07/10/2024 1 1 Specialty Diagnoses / Procedures Referred By Contac t Referred To Contact XR IMAGING Diagnoses History of laminectomy Degenerative scoliosis in adult patient Procedures XR LUMBAR LIMITED 2V AP/LAT RADEX SPINE LUMBOSACRAL 2/3 VIEWS Alfonso Loyd PA-C [address] [place] [address] Xr Imaging [place] [address] Referral ID Status Reason Start Date Expiration Date Visits Requested Visits Authorized [id number] Pending Review Auto-Generat ed Referral 07/11/2023 08/09/2024 1 1 Specialty Diagnoses / Procedures Referred By Contac t Referred To Contact [facility] Diagnoses History of lumbar laminectomy for spinal cord decompression Degenerative scoliosis in adult patient Chronic low back pain, unspecified back pain laterality, unspecified whether sciatica present Procedures EMG(NEURO/NI) NERVE CONDUCTION STUDIES 9-10 STUDIES Katherine Keith MD [address] [place] [address] Neurological [place] [address] [place] [address] Referral ID Status Reason Start Date Expiration Date Visits Requested Visits Authorized [id number] Authorized Auto-Generat ed Referral 05/06/2023 03/09/2024 1 1 Specialty Diagnoses / Procedures Referred By Contac t Referred To Contact CT IMAGING Diagnoses Chronic low back pain, unspecified back pain laterality, unspecified whether sciatica present Procedures CT LUMBAR SPINE WO IVCON CT LUMBAR SPINE W/O CONTRAST MATERIAL Katherine Keith MD [address] [place] [address] Ct Imaging [place] [address] Referral ID Status Reason Start Date Expiration Date V isits Requested Visits Authorized [id number] Closed Auto-Generate d Referral 04/30/2023 05/29/2024 1 [...] VW Katherine Keith MD [address] [place] [address] Xr Imaging [place] [address] Referral ID Status Reason Start Date Expiration Date V isits Requested Visits Authorized [id number] Closed Auto-Generate d Referral 04/30/2023 05/29/2024 1 1 Specialty Diagnoses / Procedures Referred By Contac t Referred To Contact CT IMAGING Diagnoses Chronic low back pain, unspecified back pain laterality, unspecified whether sciatica present Procedures CT LUMBAR SPINE WO IVCON CT LUMBAR SPINE W/O CONTRAST MATERIAL Katherine Keith MD [address] [facility] [place] [address] Ct Imaging [place] [address] Referral ID Status Reason Start Date Expiration Date V isits Requested Visits Authorized [id number] Closed Auto-Generate d Referral 04/30/2023 05/29/2024 1 1 Additional Source Comments (unrecognized sect ion and content) No Status Records FoundNo Status Records FoundNo Status Records FoundNo Status Records FoundNo Status Records FoundNo Status Records FoundNo Status Records FoundNo Status Records FoundNo Status Records FoundNo Status Records Found INFORMATION SOURCE (unrecogn ized section and content) DATE CREATED AUTHOR 05/16/2020 [facility] DATE CREATED AUTHOR AUTHOR'S ORGANIZ ATION 09/06/2020 [facility] DATE CREATED AUTHOR AUTHOR'S ORGANIZ ATION 05/18/2022 [facility] DATE CREATED AUTHOR AUTHOR'S ORGANIZ ATION 06/13/2022 [facility] DATE CREATED AUTHOR AUTHOR'S ORGANIZ ATION 08/18/2023 [facility] DATE CREATED AUTHOR AUTHOR'S ORGANIZ ATION 05/16/2024 [facility] DATE CREATED AUTHOR AUTHOR'S ORGANIZ ATION 07/17/2024 [facility] DATE CREATED AUTHOR AUTHOR'S ORGANIZ ATION 10/02/2024 [facility] DATE CREATED AUTHOR AUTHOR'S ORGANIZ ATION 10/08/2024 [facility]IC DATE CREATED AUTHOR AUTHOR'S ORGANIZ ATION 11/24/2024 [facility] Patient Care team informatio n (unrecognized section and content) Team Status: Active Member Role Status Dates Ester Cain MD Primary Care Provider Active Team Status: Inactive Member Role Status Dates Ester Cain MD Primary Care Provider Active Shae Guillory MD Attending Provider Active Pre Billing Clinician Relationship Specialty Start Date End Date Ester Cain MD PCP - General 05/05/06 Pre Billing Clinician Relationship Specialty Start Date End Date Ester Cain MD PCP - General 05/05/06 Pre Billing Clinician Relationship Specialty Start Date End Date Ester Cain MD PCP - General 05/05/06 Pre Billing Clinician Relationship Specialty Start Date End Date Ester Cain MD PCP - General 05/05/06 Pre Billing Clinician Relationship Specialty Start Date End Date Ester Cain MD PCP - General 05/05/06 Pre Billing Clinician Relationship Specialty Start Date End Date Ester Cain MD PCP - General 05/05/06 Pre Billing Clinician Relationship Specialty Start Date End Date Ester Cain MD PCP - General 05/05/06 Pre Billing Clinician Relationship Specialty Start Date End Date Ester Cain MD PCP - General 05/05/06 Pre Billing Clinician Relationship Specialty Start Date End Date Ester Cain MD PCP - General 05/05/06 Pre Billing Clinician Relationship Specialty Start Date End Date Ester Cain MD PCP - General 05/05/06 Pre Billing Clinician Relationship Specialty Start Date End Date Ester Cain MD PCP - General 05/05/06 Pre Billing Clinician Relationship Specialty Start Date End Date Ester Cain MD PCP - General 05/05/06 Pre Billing Clinician Relationship Specialty Start Date End Date Ester Cain MD PCP - General 05/05/06 Pre Billing Clinician Relationship Specialty Start Date End Date Ester Cain MD PCP - General 05/05/06 Pre Billing Clinician Relationship Specialty Start Date End Date Ester Cain MD PCP - General 05/05/06 Pre Billing Clinician Relationship Specialty Start Date End Date Ester Cain MD PCP - General 05/05/06 Pre Billing Clinician Relationship Specialty Start Date End Date Ester Cain MD PCP - General 05/05/06 Pre Billing Clinician Relationship Specialty Start Date End Date Ester Cain MD PCP - General 05/05/06 Pre Billing Clinician Relationship Specialty Start Date End Date Ester Cain MD PCP - General 05/05/06 Katherine Keith Md, [facility] 09/07/23 Pre Billing Clinician Relationship Specialty Start Date End Date Ester Cain MD PCP - General 05/05/06 Katherine Keith Md, [facility] 09/07/23 Pre Billing Clinician Relationship Specialty Start Date End Date Ester Cain MD PCP - General 05/05/06 Katherine Keith Md, [facility] 09/07/23 Pre Billing Clinician Relationship Specialty Start Date End Date Ester Cain MD PCP - General 05/05/06 Katherine Keith Md, [facility] 09/07/23 Pre Billing Clinician Relationship Specialty Start Date End Date Ester Cain MD PCP - General 05/05/06 Katherine Keith Md, [facility] 09/07/23 Pre Billing Clinician Relationship Specialty Start Date End Date Ester Cain MD PCP - General 05/05/06 Katherine Keith Md, [facility] 09/07/23 Pre Billing Clinician Relationship Specialty Start Date End Date Ester Cain MD PCP - General 05/05/06 Katherine Keith Md, [facility] 09/07/23 Pre Billing Clinician Relationship Specialty Start Date End Date Ester Cain MD PCP - General 05/05/06 Katherine Keith Md, [facility] 09/07/23 Pre Billing Clinician Relationship Specialty Start Date End Date Ester Cain MD PCP - General 05/05/06 Katherine Keith Md, [facility] 09/07/23 Pre Billing Clinician Relationship Specialty Start Date End Date Ester Cain MD PCP - General 05/05/06 Katherine Keith Md, [facility] 09/07/23 Pre Billing Clinician Relationship Specialty Start Date End Date Ester Cain MD PCP - General 05/05/06 Katherine Keith Md, [facility] 09/07/23 Pre Billing Clinician Relationship Specialty Start Date End Date Ester Cain MD PCP - General 05/05/06 Katherine Keith Md, [facility] 09/07/23 Pre Billing Clinician Relationship Specialty Start Date End Date Ester Cain MD PCP - General 05/05/06 Katherine Keith Md, [facility] 09/07/23 Pre Billing Clinician Relationship Specialty Start Date End Date Ester Cain MD PCP - General 05/05/06 Katherine Keith Md, [facility] 09/07/23 Pre Billing Clinician Relationship Specialty Start Date End Date Ester Cain MD PCP - General 05/05/06 Katherine Keith Md, [facility] 09/07/23 Pre Billing Clinician Relationship Specialty Start Date End Date Ester Cain MD PCP - General 05/05/06 Katherine Keith Md, [facility] 09/07/23 Pre Billing Clinician Relationship Specialty Start Date End Date Ester Cain MD PCP - General 05/05/06 Katherine Keith Md, [facility] 09/07/23 Team Status: Inactive Member Role Status Dates Ester Cain MD Primary Care Provider Active Start: November 26, 2023 End: November 26, 2023 Camryn Agustin MD [facility] Attending Provider Active Start: November 26, 2023 End: November 26, 2023 Pre Billing Clinician Relationship Specialty Start Date End Date Ester Cain MD PCP - General 05/05/06 Katherine Keith Md, [facility] 09/07/23 Pre Billing Clinician Relationship Specialty Start Date End Date Ester Cain MD PCP - General 05/05/06 Katherine Keith Md, MD [facility] 09/07/23 Pre Billing Clinician Relationship Specialty Start Date End Date Ester Cain MD PCP - General 05/05/06 Katherine Keith Md, [facility] 09/07/23 Pre Billing Clinician Relationship Specialty Start Date End Date Ester Cain MD PCP - General 05/05/06 Katherine Keith Md, [facility] 09/07/23 Pre Billing Clinician Relationship Specialty Start Date End Date Ester Cain MD PCP - General 05/05/06 Katherine Keith Md, [facility] 09/07/23 Pre Billing Clinician Relationship Specialty Start Date End Date Ester Cain MD PCP - General 05/05/06 Katherine Keith Md, [facility] 09/07/23 Pre Billing Clinician Relationship Specialty Start Date End Date Ester Cain MD PCP - General 05/05/06 Katherine Keith Md, [facility] 09/07/23 Pre Billing Clinician Relationship Specialty Start Date End Date Ester Cain MD PCP - General 05/05/06 Katherine Keith Md, [facility] 09/07/23 Pre Billing Clinician Relationship Specialty Start Date End Date Ester Cain MD PCP - General 05/05/06 Katherine Keith Md, [facility] 09/07/23 Pre Billing Clinician Relationship Specialty Start Date End Date Ester Cain MD PCP - General 05/05/06 Katherine Keith Md, [facility] 09/07/23 Pre Billing Clinician Relationship Specialty Start Date End Date Ester Cain MD PCP - General 05/05/06 Katherine Keith Md, [facility] 09/07/23 Pre Billing Clinician Relationship Specialty Start Date End Date Ester Cain MD PCP - General 05/05/06 Katherine Keith Md, [facility] 09/07/23 Pre Billing Clinician Relationship Specialty Start Date End Date Ester Cain MD PCP - General 05/05/06 Katherine Keith Md, MD [facility] 09/07/23 Pre Billing Clinician Relationship Specialty Start Date End Date Ester Cain MD PCP - General 05/05/06 Katherine Keith Md, MD [facility] 09/07/23 Pre Billing Clinician Relationship Specialty Start Date End Date Ester Cain MD PCP - General 05/05/06 Katherine Keith Md, MD [facility] 09/07/23 Pre Billing Clinician Relationship Specialty Start Date End Date Ester Cain MD PCP - General 05/05/06 Katherine Keith Md, [facility] 09/07/23 Pre Billing Clinician Relationship Specialty Start Date End Date Ester Cain MD PCP - General 05/05/06 Katherine Keith Md, MD [facility] 09/07/23 Pre Billing Clinician Relationship Specialty Start Date End Date Ester Cain MD PCP - General 05/05/06 Katherine Keith Md, MD [facility] 09/07/23 Pre Billing Clinician Relationship Specialty Start Date End Date Ester Cain MD PCP - General 05/05/06 Katherine Keith Md, MD [facility] 09/07/23 Pre Billing Clinician Relationship Specialty Start Date End Date Ester Cain MD PCP - General 05/05/06 Katherine Keith Md, [facility] 09/07/23 Pre Billing Clinician Relationship Specialty Start Date End Date Ester Cain MD PCP - General 05/05/06 Katherine Keith Md, [facility] 09/07/23 Pre Billing Clinician Relationship Specialty Start Date End Date Ester Cain MD PCP - General 05/05/06 Katherine Keith Md, [facility] 09/07/23 Pre Billing Clinician Relationship Specialty Start Date End Date Ester Cain MD PCP - General 05/05/06 Katherine Keith Md, MD [facility] 09/07/23 Pre Billing Clinician Relationship Specialty Start Date End Date Ester Cain MD PCP - General 05/05/06 Katherine Keith Md, [facility] 09/07/23 Pre Billing Clinician Relationship Specialty Start Date End Date Ester Cain MD [address] [place] [address] PCP - General Family Medicine 09/08/24 Team [...] October 06, 2024 End: October 06, 2024 NICKI MccordC Attending Provider Active Start: October 06, 2024 End: October 06, 2024 Pre Billing Clinician Relationship Specialty Start Date End Date Ester Cain MD [address] [place] [address] PCP - General Family Medicine 09/08/24 Pre Billing Clinician Relationship Specialty Start Date End Date Ester Cain MD [address] [place] [address] PCP - General Family Medicine 09/08/24 Pre Billing Clinician Relationship Specialty [place] [address] [place] [phone] PCP - General Family Medicine 09/08/24 Goals [...] or prosecute any alcohol or drug abuse patient.[facility] Health[facility] the event this information is protected by the Federal Confidentiality of Alcohol and Drug Abuse Patient Records regulations: The Federal rules restrict any use of the information to criminally investigate or prosecute any alcohol or drug abuse patient.[facility] HealthIn the event this information is protected by the Federal Confidentiality of Alcohol and Drug Abuse Patient Records regulations: The Federal rules restrict any use of the information to criminally investigate or prosecute any alcohol or drug abuse patient.[facility] Health[facility] the event this information is protected by the Federal Confidentiality of Alcohol and Drug Abuse Patient Records regulations: The Federal rules restrict any use of the information to criminally investigate or prosecute any alcohol or drug abuse patient.[facility] HealthIn the event this information is protected by the Federal Confidentiality of Alcohol and Drug Abuse Patient Records regulations: The Federal rules restrict any use of the information to criminally investigate or prosecute any alcohol or drug abuse patient.[facility] HealthIn the event this information is protected by the Federal Confidentiality of Alcohol and Drug Abuse Patient Records regulations: The Federal rules restrict any use of the information to criminally investigate or prosecute any alcohol or drug abuse patient.[facility] HealthIn the event this information is protected by the Federal Confidentiality of Alcohol and Drug Abuse Patient Records regulations: The Federal rules restrict any use of the information to criminally investigate or prosecute any alcohol or drug abuse patient.[facility] HealthIn the event this information is protected by the Federal Confidentiality of Alcohol and Drug Abuse Patient Records regulations: The Federal rules restrict any use of the information to criminally investigate or prosecute any alcohol or drug abuse patient.[facility] HealthIn the event this information is protected by the Federal Confidentiality of Alcohol and Drug Abuse Patient Records regulations: The Federal rules restrict any use of the information to criminally investigate or prosecute any alcohol or drug abuse patient.[facility] HealthIn the event this information is protected by the Federal Confidentiality of Alcohol and Drug Abuse Patient Records regulations: The Federal rules restrict any use of the information to criminally investigate or prosecute any alcohol or drug abuse patient.[facility] HealthIn the event this information is protected by the Federal Confidentiality of Alcohol and Drug Abuse Patient Records regulations: The Federal rules restrict any use of the information to criminally investigate or prosecute any alcohol or drug abuse patient.[facility] HealthIn the event this information is protected by the Federal Confidentiality of Alcohol and Drug Abuse Patient Records regulations: The Federal rules restrict any use of the information to criminally investigate or prosecute any alcohol or drug abuse patient.[facility] HealthIn the event this information is protected by the Federal Confidentiality of Alcohol and Drug Abuse Patient Records regulations: The Federal rules restrict any use of the information to criminally investigate or prosecute any alcohol or drug abuse patient.[facility] HealthIn the event this information is protected by the Federal Confidentiality of Alcohol and Drug Abuse Patient Records regulations: The Federal rules restrict any use of the information to criminally investigate or prosecute any alcohol or drug abuse patient.[facility] HealthIn the event this information is protected by the Federal Confidentiality of Alcohol and Drug Abuse Patient Records regulations: The Federal rules restrict any use of the information to criminally investigate or prosecute any alcohol or drug abuse patient.[facility] HealthIn the event this information is protected by the Federal Confidentiality of Alcohol and Drug Abuse Patient Records regulations: The Federal rules restrict any use of the information to criminally investigate or prosecute any alcohol or drug abuse patient.[facility] HealthIn the event this information is protected by the Federal Confidentiality of Alcohol and Drug Abuse Patient Records regulations: The Federal rules restrict any use of the information to criminally investigate or prosecute any alcohol or drug abuse patient.[facility] HealthIn the event this information is protected by the Federal Confidentiality of Alcohol and Drug Abuse Patient Records regulations: The Federal rules restrict any use of the information to criminally investigate or prosecute any alcohol or drug abuse patient.[facility] HealthIn the event this information is protected by the Federal Confidentiality of Alcohol and Drug Abuse Patient Records regulations: The Federal rules restrict any use of the information to criminally investigate or prosecute any alcohol or drug abuse patient.[facility] HealthIn the event this information is protected by the Federal Confidentiality of Alcohol and Drug Abuse Patient Records regulations: The Federal rules restrict any use of the information to criminally investigate or prosecute any alcohol or drug abuse patient.[facility] HealthIn the event this information is protected by the Federal Confidentiality of Alcohol and Drug Abuse Patient Records regulations: The Federal rules restrict any use of the information to criminally investigate or prosecute any alcohol or drug abuse patient.[facility] HealthIn the event this information is protected by the Federal Confidentiality of Alcohol and Drug Abuse Patient Records regulations: The Federal rules restrict any use of the information to criminally investigate or prosecute any alcohol or drug abuse patient.[facility] HealthIn the event this information is protected by the Federal Confidentiality of Alcohol and Drug Abuse Patient Records regulations: The Federal rules restrict any use of the information to criminally investigate or prosecute any alcohol or drug abuse patient.[facility] HealthIn the event this information is protected by the Federal Confidentiality of Alcohol and Drug Abuse Patient Records regulations: The Federal rules restrict any use of the information to criminally investigate or prosecute any alcohol or drug abuse patient.[facility] HealthIn the event this information is protected by the Federal Confidentiality of Alcohol and Drug Abuse Patient Records regulations: The Federal rules restrict any use of the information to criminally investigate or prosecute any alcohol or drug abuse patient.[facility] HealthIn the event this information is protected by the Federal Confidentiality of Alcohol and Drug Abuse Patient Records regulations: The Federal rules restrict any use of the information to criminally investigate or prosecute any alcohol or drug abuse patient.[facility] HealthIn the event this information is protected by the Federal Confidentiality of Alcohol and Drug Abuse Patient Records regulations: The Federal rules restrict any use of the information to criminally investigate or prosecute any alcohol or drug abuse patient.[facility] HealthIn the event this information is protected by the Federal Confidentiality of Alcohol and Drug Abuse Patient Records regulations: The Federal rules restrict any use of the information to criminally investigate or prosecute any alcohol or drug abuse patient.[facility] HealthIn the event this information is protected by the Federal Confidentiality of Alcohol and Drug Abuse Patient Records regulations: The Federal rules restrict any use of the information to criminally investigate or prosecute any alcohol or drug abuse patient.[facility] HealthIn the event this information is protected by the Federal Confidentiality of Alcohol and Drug Abuse Patient Records regulations: The Federal rules restrict any use of the information to criminally investigate or prosecute any alcohol or drug abuse patient.[facility] HealthIn the event this information is protected by the Federal Confidentiality of Alcohol and Drug Abuse Patient Records regulations: The Federal rules restrict any use of the information to criminally investigate or prosecute any alcohol or drug abuse patient.[facility] HealthIn the event this information is protected by the Federal Confidentiality of Alcohol and Drug Abuse Patient Records regulations: The Federal rules restrict any use of the information to criminally investigate or prosecute any alcohol or drug abuse patient.[facility] HealthIn the event this information is protected by the Federal Confidentiality of Alcohol and Drug Abuse Patient Records regulations: The Federal rules restrict any use of the information to criminally investigate or prosecute any alcohol or drug abuse patient.[facility] HealthIn the event this information is protected by the Federal Confidentiality of Alcohol and Drug Abuse Patient Records regulations: The Federal rules restrict any use of the information to criminally investigate or prosecute any alcohol or drug abuse patient.[facility] HealthIn the event this information is protected by the Federal Confidentiality of Alcohol and Drug Abuse Patient Records regulations: The Federal rules restrict any use of the information to criminally investigate or prosecute any alcohol or drug abuse patient.[facility] HealthIn the event this information is protected by the Federal Confidentiality of Alcohol and Drug Abuse Patient Records regulations: The Federal rules restrict any use of the information to criminally investigate or prosecute any alcohol or drug abuse patient.[facility] HealthIn the event this information is protected by the Federal Confidentiality of Alcohol and Drug Abuse Patient Records regulations: The Federal rules restrict any use of the information to criminally investigate or prosecute any alcohol or drug abuse patient.[facility] HealthIn the event this information is protected by the Federal Confidentiality of Alcohol and Drug Abuse Patient Records regulations: The Federal rules restrict any use of the information to criminally investigate or prosecute any alcohol or drug abuse patient.[facility] HealthIn the event this information is protected by the Federal Confidentiality of Alcohol and Drug Abuse Patient Records regulations: The Federal rules restrict any use of the information to criminally investigate or prosecute any alcohol or drug abuse patient.[facility] HealthIn the event this information is protected by the Federal Confidentiality of Alcohol and Drug Abuse Patient Records regulations: The Federal rules restrict any use of the information to criminally investigate or prosecute any alcohol or drug abuse patient.[facility] HealthIn the event this information is protected by the Federal Confidentiality of Alcohol and Drug Abuse Patient Records regulations: The Federal rules restrict any use of the information to criminally investigate or prosecute any alcohol or drug abuse patient.[facility] HealthIn the event this information is protected by the Federal Confidentiality of Alcohol and Drug Abuse Patient Records regulations: The Federal rules restrict any use of the information to criminally investigate or prosecute any alcohol or drug abuse patient.[facility] HealthIn the event this information is protected by the Federal Confidentiality of Alcohol and Drug Abuse Patient Records regulations: The Federal rules restrict any use of the information to criminally investigate or prosecute any alcohol or drug abuse patient.[facility] HealthIn the event this information is protected by the Federal Confidentiality of Alcohol and Drug Abuse Patient Records regulations: The Federal rules restrict any use of the information to criminally investigate or prosecute any alcohol or drug abuse patient.[facility] HealthIn the event this information is protected by the Federal Confidentiality of Alcohol and Drug Abuse Patient Records regulations: The Federal rules restrict any use of the information to criminally investigate or prosecute any alcohol or drug abuse patient.[facility] HealthIn the event this information is protected by the Federal Confidentiality of Alcohol and Drug Abuse Patient Records regulations: The Federal rules restrict any use of the information to criminally investigate or prosecute any alcohol or drug abuse patient.[facility] HealthIn the event this information is protected by the Federal Confidentiality of Alcohol and Drug Abuse Patient Records regulations: The Federal rules restrict any use of the information to criminally investigate or prosecute any alcohol or drug abuse patient.[facility] HealthIn the event this information is protected by the Federal Confidentiality of Alcohol and Drug Abuse Patient Records regulations: The Federal rules restrict any use of the information to criminally investigate or prosecute any alcohol or drug abuse patient.[facility] HealthIn the event this information is protected by the Federal Confidentiality of Alcohol and Drug Abuse Patient Records regulations: The Federal rules restrict any use of the information to criminally investigate or prosecute any alcohol or drug abuse patient.[facility] HealthIn the event this information is protected by the Federal Confidentiality of Alcohol and Drug Abuse Patient Records regulations: The Federal rules restrict any use of the information to criminally investigate or prosecute any alcohol or drug abuse patient.[facility] HealthIn the event this information is protected by the Federal Confidentiality of Alcohol and Drug Abuse Patient Records regulations: The Federal rules restrict any use of the information to criminally investigate or prosecute any alcohol or drug abuse patient.[facility] HealthIn the event this information is protected by the Federal Confidentiality of Alcohol and Drug Abuse Patient Records regulations: The Federal rules restrict any use of the information to criminally investigate or prosecute any alcohol or drug abuse patient.[facility] HealthIn the event this information is protected by the Federal Confidentiality of Alcohol and Drug Abuse Patient Records regulations: The Federal rules restrict any use of the information to criminally investigate or prosecute any alcohol or drug abuse patient.[facility] HealthIn the event this information is protected by the Federal Confidentiality of Alcohol and Drug Abuse Patient Records regulations: The Federal rules restrict any use of the information to criminally investigate or prosecute any alcohol or drug abuse patient.[facility] HealthIn the event this information is protected by the Federal Confidentiality of Alcohol and Drug Abuse Patient Records regulations: The Federal rules restrict any use of the information to criminally investigate or prosecute any alcohol or drug abuse patient.[facility] HealthIn the event this information is protected by the Federal Confidentiality of Alcohol and Drug Abuse Patient Records regulations: The Federal rules restrict any use of the information to criminally investigate or prosecute any alcohol or drug abuse patient.[facility] HealthIn the event this information is protected by the Federal Confidentiality of Alcohol and Drug Abuse Patient Records regulations: The Federal rules restrict any use of the information to criminally investigate or prosecute any alcohol or drug abuse patient.[facility] HealthIn the event this information is protected by the Federal Confidentiality of Alcohol and Drug Abuse Patient Records regulations: The Federal rules restrict any use of the information to criminally investigate or prosecute any alcohol or drug abuse patient.[facility] HealthIn the event this information is protected by the Federal Confidentiality of Alcohol and Drug Abuse Patient Records regulations: The Federal rules restrict any use of the information to criminally investigate or prosecute any alcohol or drug abuse patient.[facility] HealthIn the event this information is protected by the Federal Confidentiality of Alcohol and Drug Abuse Patient Records regulations: The Federal rules restrict any use of the information to criminally investigate or prosecute any alcohol or drug abuse patient.[facility] HealthIn the event this information is protected by the Federal Confidentiality of Alcohol and Drug Abuse Patient Records regulations: The Federal rules restrict any use of the information to criminally investigate or prosecute any alcohol or drug abuse patient.[facility] HealthIn the event this information is protected by the Federal Confidentiality of Alcohol and Drug Abuse Patient Records regulations: The Federal rules restrict any use of the information to criminally investigate or prosecute any alcohol or drug abuse patient.[facility] HealthIn the event this information is protected by the Federal Confidentiality of Alcohol and Drug Abuse Patient Records regulations: The Federal rules restrict any use of the information to criminally investigate or prosecute any alcohol or drug abuse patient.[facility] HealthIn the event this information is protected by the Federal Confidentiality of Alcohol and Drug Abuse Patient Records regulations: The Federal rules restrict any use of the information to criminally investigate or prosecute any alcohol or drug abuse patient.[facility] HealthIn the event this information is protected by the Federal Confidentiality of Alcohol and Drug Abuse Patient Records regulations: The Federal rules restrict any use of the information to criminally investigate or prosecute any alcohol or drug abuse patient.[facility] HealthIn the event this information is protected by the Federal Confidentiality of Alcohol and Drug Abuse Patient Records regulations: The Federal rules restrict any use of the information to criminally investigate or prosecute any alcohol or drug abuse patient.[facility] HealthIn the event this information is protected by the Federal Confidentiality of Alcohol and Drug Abuse Patient Records regulations: The Federal rules restrict any use of the information to criminally investigate or prosecute any alcohol or drug abuse patient.[facility] HealthIn the event this information is protected by the Federal Confidentiality of Alcohol and Drug Abuse Patient Records regulations: The Federal rules restrict any use of the information to criminally investigate or prosecute any alcohol or drug abuse patient.[facility] HealthIn the event this information is protected by the Federal Confidentiality of Alcohol and Drug Abuse Patient Records regulations: The Federal rules restrict any use of the information to criminally investigate or prosecute any alcohol or drug abuse patient.[facility] HealthIn the event this information is protected by the Federal Confidentiality of Alcohol and Drug Abuse Patient Records regulations: The Federal rules restrict any use of the information to criminally investigate or prosecute any alcohol or drug abuse patient.[facility] HealthIn the event this information is protected by the Federal Confidentiality of Alcohol and Drug Abuse Patient Records regulations: The Federal rules restrict any use of the information to criminally investigate or prosecute any alcohol or drug abuse patient.[facility] HealthIn the event this information is protected by the Federal Confidentiality of Alcohol and Drug Abuse Patient Records regulations: The Federal rules restrict any use of the information to criminally investigate or prosecute any alcohol or drug abuse patient.[facility] HealthIn the event this information is protected by the Federal Confidentiality of Alcohol and Drug Abuse Patient Records regulations: The Federal rules restrict any use of the information to criminally investigate or prosecute any alcohol or drug abuse patient.[facility] HealthIn the event this information is protected by the Federal Confidentiality of Alcohol and Drug Abuse Patient Records regulations: The Federal rules restrict any use of the information to criminally investigate or prosecute any alcohol or drug abuse patient.[facility] HealthIn the event this information is protected by the Federal Confidentiality of Alcohol and Drug Abuse Patient Records regulations: The Federal rules restrict any use of the information to criminally investigate or prosecute any alcohol or drug abuse patient.[facility] HealthIn the event this information is protected by the Federal Confidentiality of Alcohol and Drug Abuse Patient Records regulations: The Federal rules restrict any use of the information to criminally investigate or prosecute any alcohol or drug abuse patient.[facility] HealthIn the event this information is protected by the Federal Confidentiality of Alcohol and Drug Abuse Patient Records regulations: The Federal rules restrict any use of the information to criminally investigate or prosecute any alcohol or drug abuse patient.[facility] HealthIn the event this information is protected by the Federal Confidentiality of Alcohol and Drug Abuse Patient Records regulations: The Federal rules restrict any use of the information to criminally investigate or prosecute any alcohol or drug abuse patient.[facility] HealthIn the event this information is protected by the Federal Confidentiality of Alcohol and Drug Abuse Patient Records regulations: The Federal rules restrict any use of the information to criminally investigate or prosecute any alcohol or drug abuse patient.[facility] HealthIn the event this information is protected by the Federal Confidentiality of Alcohol and Drug Abuse Patient Records regulations: The Federal rules restrict any use of the information to criminally investigate or prosecute any alcohol or drug abuse patient.[facility] HealthIn the event this information is protected by the Federal Confidentiality of Alcohol and Drug Abuse Patient Records regulations: The Federal rules restrict any use of the information to criminally investigate or prosecute any alcohol or drug abuse patient.[facility] HealthIn the event this information is protected by the Federal Confidentiality of Alcohol and Drug Abuse Patient Records regulations: The Federal rules restrict any use of the information to criminally investigate or prosecute any alcohol or drug abuse patient.[facility] HealthIn the event this information is protected by the Federal Confidentiality of Alcohol and Drug Abuse Patient Records regulations: The Federal rules restrict any use of the information to criminally investigate or prosecute any alcohol or drug abuse patient.[facility] HealthIn the event this information is protected by the Federal Confidentiality of Alcohol and Drug Abuse Patient Records regulations: The Federal rules restrict any use of the information to criminally investigate or prosecute any alcohol or drug abuse patient.[facility] HealthIn the event this information is protected by the Federal Confidentiality of Alcohol and Drug Abuse Patient Records regulations: The Federal rules restrict any use of the information to criminally investigate or prosecute any alcohol or drug abuse patient.[facility] HealthIn the event this information is protected by the Federal Confidentiality of Alcohol and Drug Abuse Patient Records regulations: The Federal rules restrict any use of the information to criminally investigate or prosecute any alcohol or drug abuse patient.[facility] HealthIn the event this information is protected by the Federal Confidentiality of Alcohol and Drug Abuse Patient Records regulations: The Federal rules restrict any use of the information to criminally investigate or prosecute any alcohol or drug abuse patient.[facility] HealthIn the event this information is protected by the Federal Confidentiality of Alcohol and Drug Abuse Patient Records regulations: The Federal rules restrict any use of the information to criminally investigate or prosecute any alcohol or drug abuse patient.[facility] HealthIn the event this information is protected by the Federal Confidentiality of Alcohol and Drug Abuse Patient Records regulations: The Federal rules restrict any use of the information to criminally investigate or prosecute any alcohol or drug abuse patient.[facility] HealthIn the event this information is protected by the Federal Confidentiality of Alcohol and Drug Abuse Patient Records regulations: The Federal rules restrict any use of the information to criminally investigate or prosecute any alcohol or drug abuse patient.[facility] Reason for Visit (unrecogniz ed section and [...] SAC SPI W/SKULL 2/3 Katherine Dover MD [address] [place] [address] [place] [id number] Referral ID Status Reason Start Date Expiration Date V isits Requested Visits Authorized [id number] Closed Auto-Generate d Referral 04/30/2023 05/29/2024 1 1 Reason Comments Radio Main J1 Specialty Diagnoses / Procedures Referred By Contac t Referred To Contact XR IMAGING Diagnoses Spinal stenosis, lumbar region with neurogenic claudication Procedures XR LUMBAR MOTION 4V AP/LAT/ FLEX/EXT RADEX SPINE LUMBOSACRAL MINIMUM 4 VIEWS Alfonso Loyd PA-C [address] [facility] [place] [id number] [place] [address] Referral ID Status Reason Start Date Expiration Date V isits Requested Visits Authorized [id number] Closed Auto-Generate d Referral 03/21/2023 04/19/2024 1 1 Specialty Diagnoses / Procedures Referred By Contac t Referred To Contact CT IMAGING Diagnoses Chronic low back pain, unspecified back pain laterality, unspecified whether sciatica present Procedures CT LUMBAR SPINE WO IVCON CT LUMBAR SPINE W/O CONTRAST MATERIAL Katherine Keith MD [address] [place] [address] Ct Imaging [place] [address] Referral ID Status Reason Start Date Expiration Date V isits Requested Visits Authorized [id number] Closed Auto-Generate d Referral 04/30/2023 05/29/2024 1 [...] SPINE LUMBOSACRAL 2/3 VIEWS Alfonso Loyd PA-C [address] [facility] [place] [id number] [facility] [place] [address] Referral ID Status Reason Start Date Expiration Date V isits Requested Visits Authorized [id number] Closed Auto-Generate d Referral 07/11/2023 08/09/2024 1 1 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 Date Comments Refill Request 09/21/2023 Reason Comments Established Patient Follow Up Specialty Diagnoses / Procedures Referred By Contac t Referred To Contact MR IMAGING Diagnoses Adverse effect of treatment, sequela Procedures MRI LUMBAR SPINE WO IVCON MRI SPINAL CANAL LUMBAR W/O CONTRAST MATERIAL Katherine Keith MD [address] [place] [address] Mr Imaging [place] [address] Referral ID Status Reason Start Date Expiration Date V isits Requested Visits Authorized [id number] Closed Auto-Generate d Referral 11/12/2023 12/11/2024 1 1 Specialty Diagnoses / Procedures Referred By Contac t Referred To Contact MR IMAGING Diagnoses Adverse effect of treatment, sequela Procedures MRI THORACIC SPINE WO IVCON MRI SPINAL CANAL THORACIC W/O CONTRAST MATRL Katherine Keith MD [address] [facility] [address] Mr Imaging [place] [address] Referral ID Status Reason Start Date Expiration Date V isits Requested Visits Authorized [id number] Closed Auto-Generate d Referral 11/12/2023 12/11/2024 1 1 Specialty Diagnoses / Procedures Referred By Contac t Referred To Contact CT IMAGING Diagnoses Acute low back pain, unspecified back pain laterality, unspecified whether sciatica present Procedures CT LUMBAR SPINE WO IVCON CT LUMBAR SPINE W/O CONTRAST MATERIAL Katherine Keith MD [address] [facility] [address] Ct Imaging [place] [address] Referral ID Status Reason Start Date Expiration Date V isits Requested Visits Authorized [id number] Closed Auto-Generate d Referral 11/12/2023 12/11/2024 1 1 Reason Onset Date Comments EMG 01/14/2024 Specialty Diagnoses / Procedures Referred By Contac t Referred To Contact [facility] Diagnoses Adverse effect of treatment, sequela Procedures EMG(NEURO/NI) NERVE CONDUCTION STUDIES 9-10 STUDIES Katherine Keith MD [address] [place] [address] Neurological [place] [address] [place] [id number] Referral ID Status Reason Start Date Expiration Date V isits Requested Visits Authorized [id number] Closed Auto-Generate d Referral 01/13/2024 03/09/2024 1 1 Reason Comments Radiology MRI Specialty Diagnoses / Procedures Referred By Contac t Referred To Contact MR IMAGING Diagnoses Spinal stenosis of cervical region Procedures MRI CERVICAL SPINE WO IVCON MRI SPINAL CANAL CERVICAL W/O CONTRAST Alfonso Campos PA-C [address] [place] [id number] Mr Imaging [facility] Referral ID Status Reason Start Date Expiration Date V isits Requested Visits Authorized [id number] Closed Auto-Generate d Referral 02/21/2024 03/09/2024 1 [...] BE BASED ON THE PRIMARY CLINICAL RECORDS. [employer] [facility]. provides no warranty or guarantee of the accuracy or completeness of information in this document.
== END 2024-12-23 09:44 | disposition home or self-care (01) ==
LOC: PST 09:43
PROVIDERS: PCP Family Medicine; Visit Provider Surgery
DX: Z01.818 Encounter for other preprocedural examination (principal); Z86.0101 Personal history of adenomatous and serrated colon polyps

== ENCOUNTER 2025-01-05 07:14 | Day surgery (SDC) | payer OTHER, SELFPAY ==
--- OUTSIDE RECORDS SUMMARY | 2024-12-24 15:30 | XMS_ITS | Encounter Summary ---
Author Organization [facility] Address [address] [place] [address] Care Team Providers Care Food Service Driver Name Role Phone Devon Craven MD Primary Care Provider [phone] Encounter Details DateTypeDepartmentCare Team (Latest Contact Info)Xioxyoxffoz43/17/2025 3:30 PM EDTOffice Visit [facility] [address] [place] [address] Tobi Mccullough MD [address] [facility] [address] [facility] [place] [address] Primary hypertension (Primary Dx); LVH (left ventricular hypertrophy) Social History Tobacco UseTypesPacks/DayYears UsedDateSmoking Tobacco: NeverSmokeless Tobacco: Never Tobacco Cessation:Counseling Given: Not Answered Alcohol UseStandard Drinks/WeekCommentsNot Currently0 (1 standard drink = 0.6 oz pure alcohol)Sex and Gender InformationValueDate RecordedSex Assigned at Male12/20/2024 2:00 PM EDTLegal ZtnInqi9909/05/2021 11:07 PM EDTGender Identity Male12/20/2024 2:00 PM EDTSexual OrientationHeterosexual or Fxavquqp51/13/2025 2:00 PM EDTdocumented as of this encounter Last Filed Vital Signs Vital SignReadingTime TakenCommentsBlood Pproizxf231/7112/24/2024 3:36 PM EDT Rgxxr553112/24/2024 3:36 PM EDTTemperature--Respiratory Rate--Oxygen Pjvmnjzppx04% 12/24/2024 3:36 PM EDTInhaled Oxygen Concentration--Vrzloo92.4 kg (206 lb) 12/24/2024 3:36 PM EDTHeight--Body Mass Index27.9404 10:21 AM EDT documented in this encounter Functional Status * BPAnswerDate of UrjhfixjxfFemugl751/7110 3:36 PM EDNatacha Corona MA * PulseAnswerDate of PuqcgwxdjeJnhrwj8111/17/2025 3:36 PM EDNatacha Corona MA * Patient PositionAnswerDate of BhkbtzfinrSaeszdErehzjz67/17/2025 3:36 PM EDT Natacha Fraire MA * BPAnswerDate of LhdinqekddFpuxdj658/7112/24/2024 3:36 PM EDNatacha Corona MA * PulseAnswerDate of WhklmgepumNzuypq0318/17/2025 3:36 PM EDNatacha Corona MA * WbR1UyzuiyXuks of QrixgiuuoeLnmtnz9144/17/2025 3:36 PM EDNatacha Corona MA * BP LocationAnswerDate of AssessmentAuthorLeft arm12/24/2024 3:36 PM EDT Natacha Fraire MA * Patient PositionAnswerDate of XhjthmngahAewdstIskfaoi44/17/2025 3:36 PM EDT Natacha Fraire MA documented as of this encounter Progress Notes * Tobi Mccullough MD - 12/24/2024 3:30 PM EDT Images from the original note were not included. [place] [facility] Subjective Raza Rodriguez is a 69 y.o. year old male patient being seen to re-establish care with Cardiologyfor hypertension per PCP. Patient states he was on Coreg for a long time and it was no longer working for him, patient states he was them put on Amlodipine and it made him sick, then he was put on another medication which he can't recall the name of and is no longer taking that medication. Patient f ell am due to dizziness. Patient did not seek medical treatment fall. Patient denies chest pain, SOB/SMITH, leg swelling/pain, racing heart/palpitation. Patient complains of occasional dizziness/lightheadedness. Patient Active Problem List Diagnosis Acute postoperative pain Benign neoplasm of skin Cervical spondylosis with myelopathy Edema of both lower extremities Elevated troponin Foot drop, right foot History of penicillin allergy Intractable pain Localized swelling of lower extremity Low back pain Other seborrheic keratosis Pain and swelling of lower extremity Palpitations Primary hypertension S/P cervical spinal fusion Scoliosis of lumbar region due to degenerative disease of spine in adult SVT (supraventricular tachycardia) Adenomatous polyp of colon Anemia Ankle sprain Benign prostatic hyperplasia BPH with obstruction/lower urinary tract symptoms BMI 28.0-28.9,adult Cecal polyp Cellulitis Diverticulosis of intestine, part unspecified, without perforation or abscess without bleeding Edema Gross hematuria Hypoglycemia Impingement syndrome of both shoulders Incarcerated epigastric hernia Internal hemorrhoid Intradermal nevus Overweight Personal history of adenomatous and serrated colon polyps Pure hypercholesterolemia Previous back surgery Sacroiliitis, not elsewhere classified Screening for malignant neoplasm of colon Sigmoid diverticulosis 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 I had seen him in the past in 2019. At that time he had history of PVCs and I had investigated symptoms of shortness of breath with echocardiogram and a stress test that were nonrevealing. Prior history significant for bilateral dropfoot and uses a walker to assist with ambulation. Today he is referred from his PCPs office for uncontrolled hypertension and difficult to treat. He is currently maintained on carvedilol 25 mg twice daily. He used to be on amlodipine which he stopped due to nausea. He also was on irbesartan which he had side effects with. He stopped it. Currently denies chest pain and shortness of breath. He has no leg swelling. He reports occasional dizziness and lightheadedness. He underwent an echocardiogram in October 2024 that showed borderline left ventricular hypertrophy but otherwise within normal limits. His blood pressure today is elevated. He reports that this is similar to readings he would get at home. Review of Systems Neurological: Positive for dizziness and light-headedness. Objective Visit Vitals BP 147/71 (BP Location: Left arm, Patient Position: Sitting) Pulse 66 Wt 93.4 kg (206 lb) SpO2 95% BMI 27.94 kg/m?? Smoking Status Never BSA 2.18 m?? Physical Exam Constitutional: Appearance: He is well-developed. He is not ill-appearing. HENT: Head: Normocephalic and atraumatic. Nose: Nose normal. Eyes: General: No scleral icterus. Pupils: Pupils are equal, round, and reactive to light. Neck: Thyroid: No thyromegaly. Vascular: No JVD. Cardiovascular: Rate and Rhythm: Normal rate and regular rhythm. Pulses: Radial pulses are 2+ on the right side and 2+ on the left side. Heart sounds: Normal heart sounds. No murmur heard. No friction rub. No gallop. Pulmonary: Effort: Pulmonary effort is normal. No respiratory distress. Breath sounds: Normal breath sounds. No wheezing or rales. Chest: Chest wall: No tenderness. Abdominal: General: Bowel sounds are normal. There is no distension. Palpations: Abdomen is soft. Tenderness: There is no abdominal tenderness. Musculoskeletal: General: No swelling. Cervical back: Neck supple. Comments: Uses a walker to assist with ambulation. Skin: General: Skin is warm and dry. Neurological: General: No focal deficit present. Mental Status: He is alert and oriented to person, place, and time. Psychiatric: Mood and Affect: Mood normal. Behavior: Behavior is cooperative. Judgment: Judgment normal. Allergies Allergies[1] Medications Current Medications[2] Recent Labs No visits with results within 6 Month(s) from this visit. Latest known visit with results is: [facility] Encounter on 07/31/2020 Component Date Value Ventricular Rate 07/31/2020 49 Atrial Rate 07/31/2020 49 [place] Interval 07/31/2020 138 QRS DURATION 07/31/2020 86 QT Interval 07/31/2020 446 QTC CALCULATION(BAZETT) 07/31/2020 402 P Carey 07/31/2020 36 R-Carey 07/31/2020 38 T Wave Carey 07/31/2020 40 Diagnosis 07/31/2020 Value:Sinus bradycardia Otherwise normal ECG No previous ECGs available Confirmed by Domenic Ureña ([id number]) on 07/31/2020 4:09:23 PM Blood testing 07/06/2024: Hemoglobin 12.8, platelets 226, potassium 3.9, BUN 20, creatinine 0.95, eGFR more than 60, LFTs within normal limits, high-sensitivity troponin 10, NT proBNP 226, triglycerides 98, cholesterol 165, LDL 101, HDL 44. TSH 2.3. Blood testing 09/28/2024: Hemoglobin 13.9, platelets 301, potassium 4.7, BUN 26, creatinine 1.02, eGFR more than 60, LFTs normal. Imaging and other tests Echocardiogram 10/18/2024: CONCLUSION: 1. Borderline left ventricular hypertrophy with normal systolic function. Estimated LVEF is 70%. 2. Normal right ventricular size and systolic function. 3. Normal diastolic function. 4. Moderate biatrial dilatation. 5. No significant valvular dysfunction. 6. Normal right-sided pressures. ECG 11/20/2022: Sinus rhythm. stress test 07/21/2020: Submaximal stress test limited by lightheadedness. No ischemic EKG changes seen. Ventricular bigeminy at the time of lightheadedness and Rivas score 5 consistent with low risk estimates and annual cardiovascular mortality 0% and a 5-year survival of 95% using the Rivas score there is low probability of any angiographic coronary disease. Assessment/Plan Diagnoses and all orders for this visit: Primary hypertension - hydroCHLOROthiazide (HYDRODiuril) 25 mg tablet; Take 0.5 tablet once daily. - Basic metabolic panel; Future LVH (left ventricular hypertrophy) He has uncontrolled hypertension. He does not have any significant cardiac symptoms. Namely he doesnot have chest pain, shortness of breath or leg edema. His ambulation is limited by his bilateral dropfoot. He uses a walker to assist with ambulation. I reviewed with him the results of the recent echocardiogram that showed borderline LVH which indicates that his blood pressure had been uncontrolled. Currently on carvedilol 25 mg twice daily. Review of his recent blood testing shows normal renalfunction and electrolytes. His LFTs are normal. Thyroid function is normal. I explained to him thatmost people with hypertension require more than 1 agent to control blood pressure. I am going to add hydrochlorothiazide 12.5 mg once daily. I asked him to monitor blood pressure at home and send me readings so that I can make additional recommendation. I will check a BMP in 2 weeks. I will plan onseeing him in follow-up in 6 months. Follow up in about 6 months (around 06/24/2025). Tobi Mccullough MD [1] Allergies Allergen Reactions Amlodipine Nausea Only Methocarbamol GI intolerance Penicillins Hives and Rash [2] Current Outpatient Medications: carvedilol (Coreg) 25 mg tablet, Take 25 mg by mouth with breakfast and with evening meal., Disp: ,Rfl: ferrous sulfate 325 (65 Fe) MG tablet, Take 325 mg by mouth if needed., Disp: , Rfl: furosemide (Lasix) 20 mg tablet, Take 20 mg by mouth if needed., Disp: , Rfl: magnesium aspart,citrate,oxide (Triple Magnesium Complex) 400 mg magnesium capsule, Take 1 tablet by mouth in the morning., Disp: , Rfl: oxyCODONE (Roxicodone) 5 mg immediate release tablet, Take 5 mg by mouth if needed each day., Disp:, Rfl: tadalafil (Cialis) 5 mg tablet, Take 5 mg by mouth in the morning. (Patient taking differently: Take 5 mg by mouth if needed.), Disp: , Rfl: hydroCHLOROthiazide (HYDRODiuril) 25 mg tablet, Take 0.5 tablet once daily., Disp: 45 tablet, Rfl: 3 irbesartan (Avapro) 150 mg tablet, Take 150 mg by mouth in the morning. (Patient not taking: Reported on 12/24/2024), Disp: , Rfl: documented in this encounter Plan of Treatment NameTypePriorityAssociated DiagnosesOrder ScheduleBasic metabolic panelLab Routine Primary hypertension Expected: 01/07/2025 (Approximate), Expires: 12/24/2025documented as of this encounter Visit Diagnoses Diagnosis Primary hypertension- Primary Unspecified essential hypertension LVH (left ventricular hypertrophy) Cardiomegaly documented in this encounter Care Teams Team MemberRelationshipSpecialtyStart DateEnd Date Devon Craven MD [address] [place] [address] PCP - Rtflmgi45/12/25documented as of this encounter
--- NOTE | 2025-01-05 | OP_ITS ---
OPERATION DATE: 01/05/2025 PREOPERATIVE DIAGNOSIS: Personal history of tubulovillous adenoma. POSTOPERATIVE DIAGNOSIS: Severe sigmoid diverticulosis. PROCEDURE: Colonoscopy to cecum. SURGEON: Cayetano Snell M.D. ANESTHESIA: Monitored anesthesia care. ESTIMATED BLOOD LOSS: Zero. PREP: Fair with some brown liquid stool throughout the colon, as well as some solid areas of stool that were partially irrigated clear. INDICATIONS AND CONSENT: Patient is a 69-year-old male with history of a tubulovillous adenoma, 1.5 cm within the cecum, that was removed one year ago. Now presents for surveillance colonoscopy. Indications, risks, benefits, alternatives of proceeding with colonoscopy were explained extensively to the patient, including the risks of bleeding, colon perforation or anesthetic complications. All of his questions were answered. Informed consent was obtained. PROCEDURE: Patient brought to the operating room, placed in the left lateral decubitus position. Monitored anesthesia care was provided. Rectal exam was performed which showed no masses or blood. The scope was inserted into the anal canal. Under direct visualization was advanced. With the aid of abdominal compression, it was advanced to the cecum where cecal markings were clearly identified. There was noted to be a fair prep, with some brown liquid stool and semi-solid stool throughout the colon that was partially irrigated clear. Upon withdrawal of the scope, mucosal surfaces were carefully examined. There were no mass lesions or polyps. No inflammatory changes or ulcerations. In the sigmoid colon, there was noted to be severe sigmoid diverticulosis, without inflammatory changes or scarring.. The scope was retroflexed in the anal canal. There were some prominent rectal veins. No significant hemorrhoidal disease. The scope was then withdrawn. Patient tolerated procedure well, was sent to recovery room in good condition. Follow up colonoscopy should be in three years, due to his history. CC: Devon Craven M.D. SALMA
[2025-01-05 07:20] VITALS: BP 160/80; PULSE 51; TEMP 36.1; O2SAT 99; BMI 27.6
--- OUTSIDE RECORDS SUMMARY | 2025-01-05 07:23 | XMS_ITS | Clinical Summary ---
Author Organization [facility] Address [address] [place] [address] Phone Care Team Providers Care Towboat Operator Name Role Phone Devon Craven MD Primary Care Provider [phone] Social History Tobacco UseTypesPacks/DayYears UsedDateSmoking Tobacco: Never AssessedSex and Gender InformationValueDate RecordedSex Assigned at BirthNot on fileLegal Sex Male02/01/2022 11:16 PM ESTGender IdentityNot on fileSexual OrientationNot on file Plan of Treatment Health MaintenanceDue DateLast DoneCommentsCT Hzcsbavxwlbp18/03/1958Colonoscopy 1957Colorectal Cancer Umkebyyok00/03/1958FIT-DNA (Cologuard)1957FIT 1957Lipid Panel1957 4091Adhccgertbkjq89/03/1958Yearly Adult Physical 1957MMR Vaccines (1 of 1 - Standard series)1958Hepatitis C Screening 1975DTaP/Tdap/Td Vaccines (1 - Tdap)1979PSA Prostate Cancer Zftojjgoa99/03/2008Pneumococcal Vaccine (1 of 1 - PCV)2007Zoster Vaccines (1 of 2)2007Influenza Vaccine (#1)5COVID-19 Vaccine (1 - 2024- season)2024RSV High Risk: (Elderly (60+) or Population) (1 - 1- dose 75+ series)2032HIB VaccinesAged OutNo longer eligible based on patient's age to complete this topicHPV VaccinesAged OutNo longer eligible based on patient's age to complete this topicHepatitis A VaccinesAged OutNo longer eligible based on patient's age to complete this topicHepatitis B VaccinesAged OutNo longer eligible based on patient's age to complete this topicIPV Vaccines Aged OutNo longer eligible based on patient's age to complete this topic Meningococcal VaccineAged OutNo longer eligible based on patient's age to complete this topicRotavirus VaccinesAged OutNo longer eligible based on patient's age to complete this topic Care Teams Team MemberRelationshipSpecialtyStart DateEnd Devon Craven MD [address] [place] [address] [facility]05/03/11
--- OUTSIDE RECORDS SUMMARY | 2025-01-05 07:23 | XMS_ITS | CCD ---
Author Organization [facility] Care Team Providers Care Correctional Officer Lieutenant Name Role Phone ESTER CAIN Referring Unavailable [...] Unavailable MD Ester Cain Primary Care Provider [phone] MD Shae Guillory Attending Provider Ester Cain MD M Primary Care Provider [phone] Ester Cain MD M Primary Care Provider [phone] PELLE, KATHERINE Referring Unavailable HOY, ESTER M Primary Care Unavailable PELLE, KATHERINE Referring Unavailable HOY, ESTER M Primary Care Unavailable BONUS, ALFONSO M Referring Unavailable HOY, ESTER M Primary Care Unavailable Katherine Sagar JERNIGAN Md Unavailable Unavailable MD Ester Cain M Primary Care Provider [phone] MD Camryn Agustin Attending Provider [phone] PELLE, KATHERINE Referring Unavailable HOY, ESTER M [...] Unavailable Ester Cain MD Primary Care Provider [id number] Ester Cain MD Primary Care Provider [phone] Mahamed Gray DPM Attending Provider [phone] Cmaryn Agustin Attending Unavailable Hoy, Ester M Primary Care Unavailable Camryn Agustin Admitting Unavailable Hoy, Ester M Primary Care Unavailable Mahamed Gray Admitting Unavailable Mahamed Gray Attending Unavailable Citlali Purcell Attending Provider MAHAMED GRAY Attending Unavailable MAHAMED GRAY Attending Unavailable NILL, Camryn Rodriguez Attending Unavailable NILL, Camryn Rodriguez Attending Unavailable NILL, Camryn Rodriguez Attending Unavailable MOUKARBELTELLO Attending Unavailable Allergies Allergy ClassificationReported Allergen(s)Allergy TypeDate of OnsetReaction(s) FacilityPenicillins (antibiotic) (4 sources)PenicillinsDrug Ipwbhls20-30-4482UohkCkwPark[facility] (10 sources)Penicillin; Translations: [penicillin]Drug AllergyEruption of skin (disorder)[facility] (14 sources)Penicillins; Translations: [PENICILLINS]Drug allergy (disorder) 14-90-8079WhmvWzmUC [facility] (20 sources)PenicillinsPropensity to adverse fajtjnclx27-41-5552XygwVwsunpktq Clinic (20 sources)Methocarbamol; Translations: [methocarbamol]Drug Omzvbcy77-33-1785 Patient reported problems (finding), [facility] (15 sources)PenicillinsPropensity to adverse onqvemsyc60-40-6624EkukFbntzsavv Clinic (1 source)Unable to AssessDrug allergy (disorder)65-28-8042VsjlwviriRegency [facility] (5 sources)MethocarbamolDrug Kxxbxef92-92-6771MT[facility] (5 sources)PenicillinsPropensity to adverse kjpffxbly34-92-0804EwkvxFVOL Healthcare (1 source)No Known Medication Allergies; Translations: [No Known Medication Allergies]Propensity to adverse reactions (disorder)[facility] (1 source)amLODIPine; Translations: [AMLODIPINE]Drug Ktvofjt32-98-5312LmahdtxtysAultman Hospital Rep[facility] Medications Current Medications MedicationDrug Class(es)DatesSig (Normalized)Sig (Original)acetaminophen 325 mg oral tablet (20 sources)Start: 17-92-6959gyox 2 tablets enteral route every six hours as neededacetaminophen (TYLENOL) 325 mg tablet 2 tablets by ORAL/FEEDING TUBE route every 6 hours as needed for pain. 10/04/2023 ActiveStart: 94-96-5378tmys 2 tablets by mouth every four hoursacetaminophen (TYLENOL) 325 mg tablet 2 tablets by ORAL/FEEDING TUBE route every 4 hours. 0 08/22/2023 ActiveamLODIPine 5 mg oral tablet (1 source)Dihydropyridine Calcium Channel BlockerStart: 96-42-7597qpba 1 tablet by mouth once dailyamLODIPine 5 mg Tab 5 mg = 1 tab(s), Oral, Daily, Refills(s) 0 Start Date: 11/15/24 Status: Ordered Repeat number: 1aspirin 81 mg delayed release oral tablet (15 sources)Platelet Aggregation Inhibitor, Nonsteroidal Anti-inflammatory Drug Start: 43-72-8657ppgo 1 tablet by mouth once dailyaspirin, enteric coated (ASPIRIN, ENTERIC COATED) 81 mg EC tablet Take 1 tablet by mouth once daily. 06/08/2024 Activecarvedilol 25 mg oral tablet (20 sources)alpha-Adrenergic Janak, beta-Adrenergic BlockerStart: 10-06-2024 take 1 tablet by mouth twice daily at mealtimeCarvedilol (Coreg) 25 mg tablet Active 25 MG PO Twice daily October 06, 2024 12:00am must administerwith a meal/food Complies with drug therapyStart: 61-09-4887qloa 1 tablet by mouth once dailycarvedilol 25 mg Tab 25 mg = 1 tab(s), Oral, Daily, Refills(s) 0 Start Date: 11/11/23 Status: OrderedRepeat number: 1Start: 10-04-2023 End: 21-52-5425kdlz 1 tablet by mouth twice daily at mealtimecarvedilol (COREG) 25 mg tablet Take 1 tablet by mouth two times a day with meals. 60 tablet 10/04/2023 ActiveStart: 57-69-4104kozk 1 tablet by mouth twice daily at mealtime carvedilol (COREG) 12.5 mg tablet Take 12.5 mg by mouth two times a day with meals. 0 03/11/2023 ActiveStart: 72-51-1556yqps 1 tablet by mouth twice daily carvedilol 6.25 mg Tab 6.25 mg = 1 tab(s), Oral, BID, Refills(s) 0 Start Date: 09/11/22 Status: OrderedStart: 45-13-3197ljpz 1 tablet by mouth twice daily carvedilol 25 mg Tab 25 mg = 1 tab(s), Oral, BID, Refills(s) 0, High blood pressure Start Date: 04/03/22 Status: OrderedComment on above:Take 12.5 mg by mouth two times a day with meals.Celebrate Multivitamin (5 sources)Start: 85-78-4825hoxc 1 tablet by mouth once dailyCelebrate Multivitamin 1 tab(s), Oral, Daily, Prophylaxis Start Date: 04/22/22 Status: Orderedcyclobenzaprine hydrochloride 10 mg oral tablet (2 sources)Muscle RelaxantStart: 39-83-1734boeb 1 tablet by mouth three times daily as needed for muscle spasmscyclobenzaprine 10 mg Tab 10 mg = 1 tab(s), Oral, TID, PRN for spasm, Refills(s) 0 Start Date: 10/23/23 Status: Ordered diclofenac sodium 0.03 mg/mg topical gel (20 sources)Nonsteroidal Anti-inflammatory DrugStart: 43-50-0647oourlqpbkz topical 3% topical gel 1 judy, Topical, BID, Refill(s) 0 Start Date: 11/15/24 Status: Ordered Repeat number: 1Start: 09-12-2023 End: 34-27-0629sabtlgaxcg (VOLTAREN ARTHRITIS PAIN) 1 % topical gel Apply 2 g to affected area two times a day. 120 g 1 09/12/2023 11/11/2023 Activedocusate sodium 50 mg / sennosides, skilled nursing 8.6 mg oral tablet (20 sources)Start: 08-29-4576qfhy 2 tablets by mouth every twelve hours as neededsenna-docusate (SENNA-S) 8.6-50 mg per tablet Take 2 tablets by mouth two times a day as needed forconstipation. 20 tablet 06/08/2024 ActiveStart: 05-89-6970owck 2 tablets by mouth twice dailysenna-docusate (SENNA-S) 8.6-50 mg per tablet Take 2 tablets by mouth two times a day. 20 tablet 08/22/2023 Suspendedferrous sulfate 325 mg delayed release oral tablet (5 sources)take 1 tablet by mouth in the morningferrous sulfate 325 (65 Fe) MG EC tablet Take 325 mg by mouth in the morning and 325 mg in the evening. Take with meals. Do not crush, chew, or split. ActiveFish Oils (3 sources)Start: 32-88-4702auqu 1 capsule by mouth once dailyFish Oil 1 cap, Oral, Daily, Prophylaxis Start Date: 04/22/22 Status: Orderedfurosemide 40 mg oral tablet (20 sources)Loop Diuretictake 1 tablet by mouth once dailyfurosemide (LASIX) 40 mg tablet Take 40 mg by mouth once daily. Activegabapentin 300 mg oral capsule (20 sources)Anti-epileptic AgentStart: 09-10-2023 End: 27-42-2078juek 1 capsule by mouth every eight hoursgabapentin (NEURONTIN) 300 mg capsule Take 1 capsule by mouth every 8 hours for 30 days. 90 capsule 10/09/2023 Activeisoniazid 300 mg oral tablet (1 source)AntimycobacterialStart: 78-42-7068jrim 1 tablet by mouth once daily isoniazid 300 mg Tab 300 mg = 1 tab(s), Oral, Daily, Refills(s) 0 Start Date: 09/26/20 Status: Orderedlidocaine 0.05 mg/mg medicated patch (20 sources)Antiarrhythmic, Amide Local AnestheticStart: 10-31-6032leydtfxup Top 5% film Patch 1 patch(es), Topical, Daily, Refill(s) 0 Start Date: 11/15/24 Status: Ordered Repeat number: 1Start: 09-12-2023 End: 08-97-6368uieulqvrb (LIDODERM) 5 % Take as instructed on package 10 Patch 1 10/09/2023 Activelisinopril 20 mg oral tablet (18 sources)Angiotensin Converting Enzyme InhibitorStart: 49-51-2942tvru 1 tablet by mouth once dailylisinopril 20 mg Tab 20 mg = 1 tab(s), Oral, Daily, Refills(s) 0 Start Date: 04/03/22 Status: OrderedStart: 07-04-2006 End: 98-13-2940lgem 1 tablet by mouth once dailylisinopril 10 mg ORAL Tab Take one(1) tablet daily. 0 07/04/2006 08/06/2023 Discontinued (Discontinued by Patient)Comment on above:Take one(1) tablet daily.Magnesium (5 sources)take 1 tablet by mouth once dailyMagnesium 400 MG capsule Take 1 tablet by mouth Daily Activemagnesium oxide 500 mg oral capsule (12 sources)Start: 32-38-6947lcjr 1 capsule by mouth twice dailyMagnesium Oxide 500 mg cap Take 1 capsule by mouth two times a day. 0 08/06/2023 ActiveStart: 83-37-6837pshz 1 tablet by mouth once dailymagnesium oxide 400 mg Tab 400 mg = 1 tab(s), Oral, Daily, Refills(s) 0, Prophylaxis Start Date: 09/26/20 Status: Ordered Repeat number: 1methylPREDNISolone (1 source)CorticosteroidStart: 11-13-2023 End: 47-06-7365zfvhmfVBEJYGDdjzgx (MEDROL, NIKHIL,) 4 mg Dose-Pack As instructed per package 21 tablet 11/13/2023 11/19/2023 Activemupirocin 0.02 mg/mg topical ointment (3 sources)RNA Synthetase Inhibitor AntibacterialStart: 08-06-2023 End: 21-28-3266hsuwxunwt (BACTROBAN) 2 % ointment two times a day for 5 days. Apply 0.5 inch with cotton swab (Q-tip) to each nostril in the morning and evening for 5 days prior to and including day of surgery. 22 g 0 08/06/2023 08/11/2023 Activenaloxone 4 mg/actuation nasal spray (NARCAN) (15 sources)Start: 26-73-2286xrbwlges 4 mg/actuation nasal spray (NARCAN) Indications: Acute postoperative pain , S/P cervical spinal fusion , Cervical spondylosis with myelopathy Use 1 spray in one nostril as needed for overdose. May repeat every 2 to 3 min in alternating nostrils until medical assistance is available 2 Each 06/08/2024 ActiveoxyCODONE hydrochloride 5 mg oral tablet (20 sources)Opioid AgonistStart: 88-73-9944ubwCRCKSD 5 mg Tab as directed, Refills(s) 0 Start Date: 11/15/24 Status: Ordered Repeat number: 1Start: 27-16-3749Aselbkmwa 5 mg tablet Active MG PO October 06, 2024 12:00am Complies with drug therapyStart: 06-21-2024 End: 84-62-5084xrga 1 tablet by mouth every six hours as needed for pain oxyCODONE IR (ROXICODONE) 5 mg immediate release tablet Indications: Post-op pain Take 1 tablet by mouth every 6 hours as needed for pain for up to 7 days. 28 tablet 06/28/2024 07/05/2024 ActiveStart: 06-15-2024 End: 19-36-9703uwcw 1 tablet by mouth every four hoursoxyCODONE IR (ROXICODONE) 5 mg immediate release tablet Indications: Post-op pain Take 1 tablet by mouth every 4 hours for 7 days. 42 tablet 06/15/2024 06/21/2024 DiscontinuedStart: 06-08-2024 End: 18-07-6499jrpm 1 tablet by mouth every four hours as neededoxyCODONE IR (ROXICODONE) 5 mg immediate release tablet Indications: Acute postoperative pain , S/Pcervical spinal fusion , Cervical spondylosis with myelopathy Take 1-2 tablets by mouth every 4 hours as needed for pain (Moderate to severe postop pain) for up to 5 days. 60 tablet 06/08/2024 2:54 PM EDT 06/08/2024 06/13/2024 ActiveStart: 10-15-2023 End: 97-82-4337yexd 1 tablet by mouth every six hours as needed for pain oxyCODONE IR (ROXICODONE) 5 mg immediate release tablet Indications: Post-op pain Take 1 tablet by mouth every 6 hours as needed for pain for up to 7 days. 28 tablet 0 10/15/2023 10/22/2023 ActiveStart: 10-09-2023 End: 37-80-4306ltql 1 tablet by mouth every four hoursoxyCODONE IR (ROXICODONE) 5 mg immediate release tablet Indications: Post-op pain Take 1 tablet by mouth every 4 hours for 7 days. 42 tablet 0 10/09/2023 10/15/2023 DiscontinuedStart: 10-04-2023 End: 70-19-3644sgic 1 tablet by mouth every six hours as neededoxyCODONE IR (ROXICODONE) 5 mg immediate release tablet Indications: Acute post-operative pain Take1-2 tablets by mouth every 6 hours as needed for up to 7 days. 28 tablet 0 10/04/2023 10/11/2023 ActiveStart: 09-28-2023 End: 58-87-4947sbdk 1 tablet by mouth every four hours as needed for pain oxyCODONE IR (ROXICODONE) 10 mg tab Indications: S/P lumbar fusion Take 1 tablet by mouth every 4 hours as needed for pain for up to 7 days. Do not start before September 28, 2023. 42 tablet 0 09/28/2023 10/05/2023 ActiveStart: 09-15-2023 End: 09-38-8236nbog 1 tablet by mouth every four hours as needed for pain oxyCODONE IR (ROXICODONE) 10 mg tab Indications: S/P lumbar fusion Take 1 tablet by mouth every 4 hours as needed for pain for up to 7 days. 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 28 tablet 0 09/10/2023 09/15/2023 Discontinued (Course of therapy completed)Start: 09-04-2023 End: 84-26-1485qazl 1 tablet by mouth every six hours as needed for pain oxyCODONE IR (ROXICODONE) 5 mg immediate release tablet Indications: Acute post- operative pain Take1 tablet by mouth every 6 hours as needed for pain for up to 7 days. Do not start before September 04, 2023. 28 tablet 0 09/04/2023 09/11/2023 SuspendedStart: 08-29-2023 End: 84-73-7121njtm 1 tablet by mouth every four hoursoxyCODONE IR (ROXICODONE) 5 mg immediate release tablet Indications: Acute post-operative pain Take1 tablet by mouth every 4 hours for 7 days. 42 tablet 0 08/29/2023 09/02/2023 DiscontinuedStart: 08-22-2023 End: 81-14-2498vjem 1 tablet by mouth every six hours as neededoxyCODONE IR (ROXICODONE) 5 mg immediate release tablet Indications: Acute post-operative pain Take1-2 tablets by mouth every 6 hours as needed for up to 7 days. 56 tablet 0 08/22/2023 08/29/2023 Discontinuedtake 1 capsule by mouth every four hours as needed for painoxyCODONE (Oxy-IR) 5 MG immediate release capsule Take 5 mg by mouth every 4 (four) hours if neededfor severe pain Activepregabalin 50 mg oral capsule (20 sources)Start: 06-08-2024 End: 40-67-6587mumj 2 capsules by mouth three times dailypregabalin (LYRICA) 50 mg capsule Indications: Adverse effect of treatment, sequela Take 2 capsulesby mouth three times a day for 90 days. 180 capsule 2 06/08/2024 09/06/2024 Active Start: 10-23-2023 End: 49-94-7180wzdd 1 capsule by mouth twice dailypregabalin (LYRICA) 50 mg capsule Indications: Adverse effect of treatment, sequela Take 1 capsule by mouth two times a day for 90 days. 60 capsule 2 11/12/2023 Suspendedsildenafil 100 mg oral tablet (2 sources)Phosphodiesterase 5 InhibitorStart: 20-64-4362jrob 1 tablet by mouth once daily as neededsildenafil 100 mg Tab 100 mg = 1 tab(s), Oral, Daily, PRN as needed, Refills(s) 0 Start Date: 09/11/22 Status: Orderedtadalafil 5 mg oral tablet (6 sources)Phosphodiesterase 5 InhibitorStart: 32-58-7645tunh 1 tablet by mouth once daily as neededtadalafil 5 mg oral tablet 5 mg = 1 tab(s), Oral, Daily, PRN erectile dysfunction, Refills(s) 0 Start Date: 11/15/24 Status: Ordered Repeat number: 1tiZANidine 4 mg oral tablet (20 sources)Central alpha-2 Adrenergic AgonistStart: 50-32-4904Igfbwwzlkw 4 mg tablet Active MG PO October 06, 2024 12:00am Complies with drug therapyStart: 06-08-2024 End: 65-66-9039icht 1 tablet by mouth every eight hours as neededtiZANidine (ZANAFLEX) 2 mg tablet Indications: Acute postoperative pain , S/P cervical spinal fusion , Cervical spondylosis with myelopathy Take 3 tablets by mouth every 8 hours as needed for up to 7days. 20 tablet 06/08/2024 2:54 PM EDT 06/08/2024 06/15/2024 ActiveStart: 67-18-8701wtfe 1 tablet by mouth every eight hours in the eveningtiZANidine (ZANAFLEX) 2 mg tablet Take 3 tablets by mouth every 8 hours. 90 tablet 09/10/2023 3:56 PM EDT 09/10/2023 SuspendedStart: 64-63-9953jkxv 2 tablets by mouth at bedtimetiZANidine 4 mg Tab 8 mg = 2 tab(s), Oral, Bedtime, Refills(s) 0, Insomnia Start Date: 04/03/22 Status: Ordered Repeat number: 1tiZANidine (Zanaflex) 4 MG capsule Take 8 mg by mouth at bedtime ActiveComment on above:Take 2 tablets by mouth daily at bedtime.turmeric extract 500 mg oral capsule (5 sources)Start: 91-79-5099knwm 1 capsule by mouth once dailyturmeric 500 mg oral capsule 500 mg = 1 cap(s), Oral, Daily, Prophylaxis Start Date: 04/22/22 Status: Ordered Completed/Discontinued Medications MedicationDrug Class(es)DatesSig (Normalized)Sig (Original)acetaminophen 325 mg / HYDROcodone bitartrate 5 mg oral tablet (18 sources)Opioid AgonistStart: 11-12-2023 End: 59-76-8430unpq 1 tablet by mouth every six hours as needed for pain HYDROcodone-acetaminophen (NORCO) 5-325 mg per tablet Indications: Adverse effect of treatment, sequela Take 1 tablet by mouth every 6 hours as needed for pain for up to 7 days. 28 tablet 11/12/2023 11/19/2023 ExpiredStart: 11-05-2023 End: 56-09-3861qifw 1 tablet by mouth twice dailyHYDROcodone-acetaminophen (NORCO) 5-325 mg per tablet Indications: Post-op pain Take 1 tablet by mouth two times a day for 7 days. 14 tablet 11/05/2023 11/12/2023 ExpiredStart: 10-23-2023 End: 84-49-8246mvbj 1 tablet by mouth every eight hours as needed for pain HYDROcodone-acetaminophen (NORCO) 5-325 mg per tablet Indications: Post-op pain Take 1 tablet by mouth every 8 hours as needed for pain for up to 7 days. 21 tablet 10/30/2023 11/05/2023 DiscontinuedStart: 30-23-4820ziyr 1 tablet by mouth every eight hours as needed for painacetaminophen-hydrocodone 325 mg-5 mg oral tablet 1 tab(s), Oral, q8hr as needed for pain, Refill(s) 0 Start Date: 09/11/22 Status: OrderedStart: 90-53-0926bzxa 1 tablet by mouth every eight hours as needed for painacetaminophen-hydrocodone 300 mg-5 mg oral tablet 1 tab(s), Oral, q8hr as needed for pain, Refill(s) 0 Start Date: 09/26/20 Status: Ordered fluorouracil 50 mg/ml topical cream (17 sources)Nucleoside Metabolic InhibitorStart: 07-04-2006 End: 28-34-2405Clnofglppjmh 5 % TOPICAL Crea bid 15 days R and L lat face to behind ears as discussed--wait 2 wk before starting 45gm 0 07/04/2006 08/06/2023 Discontinued (Discontinued by Patient)Comment on above:bid 15 days R and L lat face to behind ears as discussed--wait 2 wk before startingmethocarbamol 750 mg oral tablet (12 sources)Muscle RelaxantStart: 60-13-8355vjpv 1 tablet by mouth every six hoursmethocarbamol (ROBAXIN) 750 mg tablet Take 1 tablet by mouth every 6 hours. 60 tablet 0 08/22/2023 SuspendedpredniSONE 20 mg oral tablet (1 source)take 1 tablet by mouth once dailypredniSONE (DELTASONE) 20 mg tablet Take 20 mg by mouth once daily. Suspendedsulfamethoxazole 800 mg / trimethoprim 160 mg oral tablet (2 sources)Dihydrofolate Reductase Inhibitor Antibacterial, Sulfonamide AntimicrobialStart: 09-13-2024 End: 53-18-2646lqnv 1 tablet by mouth every twelve hourssulfamethoxazole- trimethoprim (Bactrim DS) 800-160 MG per tablet Take 1 tablet by mouth every 12 (twelve) hours 09/13/2024 09/22/2024 Problems Active Problems Problem ClassificationProblemDateDocumented DateEpisodic/ChronicAbdominal hernia (19 sources)Hernia of anterior abdominal wall; Translations: [Ventral hernia without obstruction or gangrene]Onset: 28-20-3389MqpqqxaqQcbdmmxjr pain (14 sources)Epigastric pain; Translations: [Epigastric pain]Onset: 03-16-2022 EpisodicAcquired foot deformities (20 sources)Right foot drop; Translations: [Foot drop, right foot]Onset: 567770-56-2765WvyzzjjyJuxfnpg dysrhythmias (20 sources)Supraventricular tachycardia; Translations: [Ventricular premature beats]Onset: 960747-43-7988DhyervfWrxuhlo ulcer of skin (6 sources)Neuropathic ulcer; Translations: [Non-pressure chronic ulcer of skin of other sites limited to breakdown of skin]04-68-7746RheyhayXzwnpkxurs and other anemia (2 sources)Iron deficiency anemia; Translations: [Iron deficiency anemia, unspecified]31-90-5806LuwzamtxAmuuobpifj and other anemia (2 sources)Iron deficiency anemia, unspecified; Translations: [Iron deficiency anemia, unspecified iron deficiency anemia type]Onset: 87-24-4301Hyapkimk Disorders of lipid metabolism (9 sources)Pure hypercholesterolemia, unspecified; Translations: [Pure hypercholesterolemia]Onset: 20-15-4606GzfjzaeZghwannauxtqdi and diverticulitis (14 sources)Diverticular disease; Translations: [Diverticula of intestine]Onset: 954338-23-4467QmapunxMjfqegoky hypertension (20 sources)Hypertensive disorder; Translations: [Essential hypertension]Onset: 469078-32-1985PbcugafCrxvmnvmrcgua symptoms and ill-defined conditions (5 sources)Blood in urine; Translations: [Gross hematuria]Onset: 12-05-2022 EpisodicHemorrhoids (9 sources)Internal bqpaxsqrgan37-08-6751VgropadaOwupbwwgjqr of prostate (9 sources)Benign prostatic hypertrophy with outflow obstruction; Translations: [Benign prostatic hyperplasia with lower urinary tract symptoms]Onset: 11-71-1711ZbdhlvtJjlgiss and fatigue (1 source)Asthenia; Translations: [Weakness]06-77-8616FuswfngeKywbdopfw of unspecified nature or uncertain behavior (20 sources)Neoplasm of uncertain behavior of skin; Translations: [Neoplasm of uncertain behavior of skin]Onset: 748544-56-7109AinohuevRwbge acquired deformities (20 sources)Other secondary scoliosis, site unspecified; Translations: [Disorder of bone and cartilage, unspecified]Onset: 830503-97-9372ZujvycdXccdo acquired deformities (1 source)Spondylolysis; Translations: [Spondylolysis, lumbar region]06-29-2024 EpisodicOther acquired deformities (1 source)Spondylolysis, lumbar region; Translations: [Spondylolysis, lumbar region]Onset: 31-48-5089DyvcarhgYhzqr aftercare (1 source)Surgical follow-up; Translations: [Encounter for removal of sutures] 43-30-6275YeiniqcvXuyvs and ill-defined heart disease (2 sources)Cardiomegaly; Translations: [Cardiomegaly]Onset: 44-16-3968Dyxjftg Other and unspecified benign neoplasm (9 sources)Dermal cellular doesj91-38-7894SoaosafaLszfe and unspecified benign neoplasm (1 source)Benign neoplasm of colon; Translations: [Benign neoplasm of colon, unspecified]Onset: 65-07-2379StvzkvyiGkxmk and unspecified benign neoplasm (2 sources)Adenomatous polyp of lawyy79-85-2009KttlyuawFwpvn and unspecified benign neoplasm (2 sources)History of polyp of colon; Translations: [Personal history of adenomatous and serrated colon polyps]Onset: 62-35-2890KlxipdsrDbjsa circulatory disease (6 sources)Absent pulse; Translations: [Other specified symptoms and signs involving the circulatory and respiratory systems]24-94-3854IrpqortsBsmzq connective tissue disease (20 sources)History of lumbar fusion; Translations: [Arthrodesis status]Onset: 693493-90-3125MmokhomxHkdwr connective tissue disease (17 sources)History of cervical spine fusion; Translations: [Arthrodesis status] Onset: 588037-16-0122SoitbcukPsybi connective tissue disease (3 sources)Arthrodesis status; Translations: [S/P cervical spinal fusion]Onset: 17-32-5160SgipyfaiDsuzx diseases of kidney and ureters (1 source)Urinary tract obstruction; Translations: [Other obstructive and reflux uropathy]Onset: 22-36-3971JwvurqamJlqgg nervous system disorders (1 source)Other chronic pain; Translations: [Chronic low back pain, unspecified back pain laterality, unspecified whether sciatica present]Onset: 05-04-2023 ChronicOther nervous system disorders (1 source)Lumbosacral plexus neuropathy; Translations: [Lumbosacral plexus disorders]97-12-8714EqjrqgcQfpcx nervous system disorders (4 sources)Idiopathic peripheral neuropathy; Translations: [Hereditary and idiopathic neuropathy, unspecified]35-51-4085BpsayzyGvgow nervous system disorders (20 sources)Acute postoperative pain; Translations: [Other acute postprocedural pain]Onset: 687734-74-7555IrfwfgpsJxhzc nervous system disorders (7 sources)Postoperative pain ; Translations: [Other acute postprocedural pain] 85-21-1765KubaffsoEbplw nervous system disorders (1 source)Finding related to ability to move; Translations: [Other abnormalities of gait and mobility]93-42-9097RdsmyiwyAjegk nervous system disorders (3 sources)Other acute postprocedural pain; Translations: [Postoperative pain after spinal surgery]Onset: 10-41-0403YqkttzujVmfee non-epithelial cancer of skin (9 sources)Squamous cell carcinoma of bridge of njob72-51-1199NsjwtkjbYqlkx nutritional; endocrine; and metabolic disorders (9 sources)Overweight in adulthood with body mass index of 25 or more but less than 3014-38-1906KbnlkdigCwxeh nutritional; endocrine; and metabolic disorders (3 sources)Fgxbofubaz38-42-8063AuvpmypbZkuqm screening for suspected conditions (not mental disorders or infectious disease) (20 sources)Abnormal results of liver function studies; Translations: [Encounter for screening for malignant neoplasm of prostate]Onset: 87-22-0429NtivmclqCugmn skin disorders (9 sources)Inflamed seborrheic lytzmxlpu80-13-6413XygjfmgcJundo skin disorders (9 sources)Senile onqdqrulmyrgke96-52-8773XbvbwqtvMgybm skin disorders (9 sources)Skin jlb62-38-9385XpmrflmcAjqlkxyzzs and visceral atherosclerosis (5 sources)Peripheral vascular disease, unspecified; Translations: [Peripheral vascular disease, unspecified]Onset: 629761-78-9937MaglaltTdymlakw codes; unclassified (4 sources)H/O Spinal surgery; Translations: [Other specified postprocedural states]42-45-3169IttudmajFmuhyjjc codes; unclassified (1 source)Other specified postprocedural states; Translations: [History of laminectomy]Onset: 92-30-6335ZoecxvpuVuhwbxqx codes; unclassified (1 source)History of hernia repair; Translations: [Other specified postprocedural states]73-53-7129QsklralpXhriqfbmxvm; intervertebral disc disorders; other back problems (20 sources)Lumbar spondylosis; Translations: [Cervical spondylosis]Onset: 439041-14-3923YdfhnktLtrqrooguxf; intervertebral disc disorders; other back problems (20 sources)Lumbar radiculopathy; Translations: [Radiculopathy, cervical region] Onset: 908305-91-5993GnkfidfaEdlfvgftngwj (9 sources)Patient encounter -50-6037Xgotcvyidhke (1 source)Chronic low back pain, unspecified back pain laterality, unspecified whether sciatica present; Translations: [Chronic low back pain, unspecified back pain laterality, unspecified whether sciatica present]Onset: 70-37-6373Cadbbzwc veins of lower extremity (5 sources)Varicose veins of lower dnsvywamt95-77-3915Skszfbcl Past or Other Problems Problem ClassificationProblemDateDocumented DateEpisodic/ChronicAllergic reactions (20 sources)Allergy to penicillin; Translations: [Allergy status to penicillin] Onset: 223802-28-5500FzsgycneZdepuckcsuatr of surgical procedures or medical care (5 sources)Complication of procedure; Translations: [Complication of surgical and medical care, unspecified, sequela]Onset: 140987-31-6223BpvlyqruYssjk and unspecified benign neoplasm (20 sources)Benign neoplasm of skin; Translations: [Other benign neoplasm of skin, unspecified]Onset: 756264-37-5166DtdemjnzKtbjj connective tissue disease (20 sources)Swelling of lower limb; Translations: [Other specified soft tissue disorders]Onset: 793905-61-6464AtssncqzKmjem connective tissue disease (20 sources)Pain in lower limb; Translations: [Pain in leg, unspecified]Onset: 437719-82-3463ChattosvQikoe connective tissue disease (3 sources)Other symptoms and signs involving the musculoskeletal system; Translations: [Other musculoskeletalsymptoms referable to limbs]Onset: 149167-41-8347XsxxiyodIskni connective tissue disease (2 sources)Other specified soft tissue disorders; Translations: [Localized swelling of lower extremity]Onset: 51-59-2700OdusefakEqamb connective tissue disease (1 source)Pain in leg, unspecified; Translations: [Pain and swelling of lower extremity, unspecified laterality]Onset: 83-21-1222JrxatrbeDbdcp skin disorders (20 sources)Seborrheic keratosis; Translations: [Other seborrheic keratosis] Onset: 956974-66-8812NdgzwiudBlcrncst codes; unclassified (20 sources)Pain; Translations: [Pain, unspecified]Onset: EpisodicResidual codes; unclassified (20 sources)Bilateral lower limb edema; Translations: [Localized edema]Onset: 704795-47-5776YmqdudtaNakhqyummcvm (2 sources)History of cervical spine aatbkp00-36-9130Lztabhanmolr (2 sources)PAD (peripheral artery disease)09-20-2024 Results Test NameValueInterpretationReference RangeFacilityOffice Visiton 12-24-2024 Follow-up [id number] Braden Rodriguez 1955 M Date Provider Department Center 12/24/2024 TELLO FRIAS CLAUDIA Montero Family History Problem Relation Age of Onset Stroke Mother Melanoma Father Coronary artery disease Father Melanoma Brother Family Status - Relation Status Age at Mother Father Brother Level of Service:28639 RI OFFICE/OP CONSLTJ NEW/EST PT LOW MDM 30 MINUTESNormal [facility] HospitalOrders Onlyon 20-21-6594Skrbjz [id number] Braden Rodriguez 1955 M Date Provider Department Center 12/22/2024 [id number], MITA CLAUDIA Montero Family History Problem Relation Age of Onset Stroke Mother Melanoma Father Coronary artery disease Father Melanoma Brother Family Status - Relation Status Age at Mother Father Brother DeceasedNormalUniMercy Health West HospitalAmbulatory Visit Summaryon 85-22-2057Puhoqawfyw Visit SummaryAmbulatory Visit Summary BRADEN RODRIGUEZ :1955 Visit Date:11/23/2024 [...] laminectomy, Excision of lesion of skin, Laminectomy, Lumbarspinal fusion, Revision of fusion of lumbar spine. [...] signed up for this yet, please contact eMagin at [phone] to get signed up today. Language Information Language assistance services are available as needed. [facility] HospitalAmb[facility] Summary Ambulatory Visit Summary BRADEN RODRIGUEZ [...] laminectomy, Excision of lesion of skin, Laminectomy, Lumbarspinal fusion, Revision of fusion of lumbar spine. [...] signed up for this yet, please contact eMagin at [phone] to get signed up today. Language Information Language assistance services are available as needed. [facility] HospitalProvider Letteron 11-04-2024 Provider LetterProvider Letter November 04, 2024 BRADEN RODRIGUEZ [address] [place] [phone] : 1955 Dear Braden , We have [...] Sincerely, Dr. Camryn Agustin MD General Surgery [phone] Valley Health System Bluffton HospitalReminderson 38-19-1586Krvmuiqev Reminders From: Caroline Bird LPN To: GSN - Clinical; Sent: 12/16/2023 13:08:21 EDT Show up: 10/25/2024 07:00:00 EDT Subject: colonoscopy follow up Due Date/Time: 11/25/2024 07:00:00 EDT Reminder/Recall Patient due for screening colonoscopy 11/25/2024 due to history of villous adenoma. Correction, this is surveillance. Voice mail full. Will call again at later time. Mailbox is full. Will call again at later time. Mailbox is full. Will mail letter.[facility] HospitalUS arterial pvr rest Coy 74-83-7531QA arterial pvr rest [facility] Main [address] [address] Ultrasound Report Signed Patient: Braden Rodriguez MR#: [id number] : 1955 Acct:[id number] Age/Sex: 69 / M ADM Date: 09/27/24 Loc: Room: Type: [facility] Attending Dr: Mahamed Gray DPM, Ordering [...] Zayas MD,FACS,FSVS 09/28/2024 7:56 AM Dictation Location: [place] [address] Tech: Shania Aguilar Transcribed By: ERYN 09/28/24 0756 Dictated By: Xander Zayas MD 09/28/24 0755 Signed By: 09/28/24 0756[facility] GroupCAVERNA [facility] W Auto Differential panel (Bld)on 15-59-0225Uqitzobqx (Bld) [#/Vol]0.1 10*3/uLNOMS HealthcareBasophils/100 WBC (Bld)1 %Not Estab.NOMS HealthcareEosinophils (Bld) [#/Vol]0.2 10*3/uLNOMS HealthcareEosinophils/100 WBC (Bld)3 %Not Estab.NOMS HealthcareErythrocyte distribution width (RBC) [Ratio]13.2 %11.6 - 15.4 %[facility]OMS HealthcareHematocrit (Bld) [Volume fraction]39 %37.5 - 51.0 %[facility] HealthcareHemoglobin (Bld) [Mass/Vol]12.8 g/dLLow13.0 - 17.7 g/dLNOMS HealthcareImmature granulocytes (Bld) [#/Vol]0.1 10*3/uLNOMS HealthcareImmature granulocytes/100 WBC (Bld)1 %Not Estab.[facility] HealthcareLymphocytes (Bld) [#/Vol]2.9 10*3/uLNOMS Healthcare Lymphocytes/100 WBC (Bld)31 %Not Estab.[facility] HealthcareMCH (RBC) [Entitic mass] 31.1 pg26.6 - 33.0 pgNOChildren's Mercy HospitalMCHC (RBC) [Mass/Vol]32.8 g/dL31.5 - 35.7 g/dLNOChildren's Mercy HospitalMCV (RBC) [Entitic vol]95 fL79 - 97 fLJORDAN VALLEY [facility]ICAL [facility]ENTER Healthcare Monocytes (Bld) [#/Vol]1.1 10*3/uLHighNOMS HealthcareMonocytes/100 WBC (Bld)12 % Not Estab.[facility] HealthcareNeutrophils (Bld) [#/Vol]4.8 10*3/uLNOMS Healthcare Neutrophils/100 WBC (Bld)52 %Not Estab.[facility] HealthcarePlatelets (Bld) [#/Vol]235 10*3/uLNOMS HealthcareRBC (Bld) [#/Vol]4.11 10*6/uLLowNOMS HealthcareWBC (Bld) [#/Vol]9.2 10*3/uLNOMS HealthcareLaboratory - Chemistry and Chemistry - challengeon 27-18-6414Ilynljk [Mass/Vol]4.2 g/dL3.9 - 4.9 g/dLNOMS HealthcareALP [Catalytic activity/Vol]67 U/LNOMS HealthcareALT [Catalytic activity/Vol]22 U/L NOMS HealthcareAST [Catalytic activity/Vol]31 U/LNOMS HealthcareBilirubin [Mass/Vol]0.5 mg/dL0.0 - 1.2 mg/dLNOMS HealthcareCalcium [Mass/Vol]9.3 mg/dL8.6 - 10.2 mg/dLNOMS HealthcareChloride [Moles/Vol]101 mmol/L96 - 106 mmol/LNOMS HealthcareCO2 [Moles/Vol]24 mmol/L20 - 29 mmol/LNOMS HealthcareCreatinine [Mass/Vol]1.23 mg/dL0.76 - 1.27 mg/dLNOWV HealthcareCRP [Mass/Vol]9 mg/L0 - 10 mg/LNOMS HealthcareGFR/1.73 sq M.predicted among non-blacks MDRD (S/P/Bld) [Vol rate/Area]64 mL/min/{1.73_m2}59 - PINF mL/min/1.73NOMS HealthcareGlobulin (S) [Mass/Vol]1.6 g/dL1.5 - 4.5 g/dLNOWV HealthcareGlucose [Mass/Vol]89 mg/dL70 - 99 mg/dLNOWV HealthcarePotassium [Moles/Vol]5.5 mmol/LHigh3.5 - 5.2 mmol/LNOMS HealthcarePrealbumin [Mass/Vol]26 mg/dL10 - 36 mg/dLNOWV HealthcareProtein [Mass/Vol]5.8 g/dLLow6.0 - 8.5 g/dLNOWV HealthcareSodium [Moles/Vol]139 mmol/L 134 - 144 mmol/LNOMS HealthcareUrea nitrogen [Mass/Vol]23 mg/dL8 - 27 mg/dLNOChildren's Mercy HospitalUrea nitrogen/Creatinine [Mass ratio]19 mg/mg10 - 24NOChildren's Mercy Hospital Laboratory - Hematology and Cell countson 00-59-0384MXK (Bld) [Velocity]5 mm/h [facility] HealthcareNo Panel Informationon 73-36-7559Egryraqukrvkzm and review of laboratory resultsAbSelect Specialty HospitalPerformed at: - [facility] [address] [id number] Complaint Supervisor: Scout Ludwig PhD, Phone: [phone] HealthcareCNOV on 61-54-0041BCLTDvoancGskrqktmq Clinic ClevelandCNPNon 51-59-5177GGGJEhfcsh [facility]25([place])D3 SerPl-mCncon 370053-ewjfylqwyjhctu D3 [Mass/Vol]42.5 ng/cTYvhptw30.0-80.0[facility] NorthComment on above: Order Comment: Specimen Type: BLOOD SPECIMENOrdering Facility: [facility] Address:[address] [place], [place] [address]Result Comment: Classification of 25 [place] Vitamin D status:Deficiency/Insufficiency: < or = 30 ng/ml.Sufficiency/Optimal Levels: 31-80 ng/mLToxicity: > 100 ng/mL.Test performed by chemiluminescent immunoassay.Performed By: #### 1989-3 ####[facility]PITALIA [id number] [place] [address] COMM[facility] HOSPITALCBC panel Auto (Bld)on 06-08-2024 Erythrocyte distribution width (RBC) [Ratio]12.7 %Krsyvu32.5-15.0[facility] NorthComment on above:Order Comment: Specimen Type: BLOOD SPECIMENOrdering Facility: [facility] Address:[address] [place], [place] [address]Performed By: #### 28603-1 ####[facility] [id number] [place] [address] COMMUNITY HOSPITALHematocrit (Bld) [Volume fraction]40.4 %Vdgkae55.0-51.0[facility] NorthComment on above:Order Comment: Specimen Type: BLOOD SPECIMENOrdering Facility: [facility] Address:[address] [place], [place] [address]Performed By: #### 56653-2 ####[facility]IA [id number] [place] [address] [place] [facility] Hemoglobin (Bld) [Mass/Vol]13.2 g/zTIwjyxy58.0-17.0[facility] Comment on above:Order Comment: Specimen Type: BLOOD SPECIMENOrdering Facility: [facility] Address:[address] [place] [address] Performed By: #### 72588-6 ####[facility] [id number] [address] [address] [place] MCH (RBC) [Entitic mass]30.9 wgXcsrjt81.0-34.0[facility] on above:Order Comment: Specimen Type: BLOOD SPECIMENOrdering Facility: [facility] Address:[address] [place] [address] Performed By: #### 63849-7 ####[facility] [id number] [place] [address] [place] MCHC (RBC) [Mass/Vol]32.7 g/fKUifbrk01.5-36.0[facility] on above:Order Comment: Specimen Type: BLOOD SPECIMENOrdering Facility: [facility] Address:[address] [place] [address] Performed By: #### 95372-9 ####[facility] [id number] [place] [address] [place] MCV (RBC) [Entitic vol]94.6 rJGlubpl71.0-100.0[facility] on above:Order Comment: Specimen Type: BLOOD SPECIMENOrdering Facility: [facility] Address:[address] [place] [address] Performed By: #### 51559-0 ####[facility]ITALIA [id number] [place] [address] [place] Nucleated RBC (Bld) [#/Vol]10*3/uLNormal<0.01[facility] on above:Order Comment: Specimen Type: BLOOD SPECIMENOrdering Facility: [facility] Address:[address] [place] [address] Performed By: #### 35447-7 ####[facility] [id number] [place] [address] [place] Platelet mean volume (Bld) [Entitic vol]10.7 fLNormal9.0-12.7CG[facility] on above:Order Comment: Specimen Type: BLOOD SPECIMENOrdering Facility: [facility] Address:[address] [place], [place] [address]Performed By: #### 64971-6 ####[facility] LABCLIA [id number] [place] [address] [place] Platelets (Bld) [#/Vol]277 10*3/zQSzfoen811-821AxblstzuoSelect [facility] on above:Order Comment: Specimen Type: BLOOD SPECIMENOrdering Facility: [facility] Address:[address] [place] [address] Performed By: #### 94991-2 ####[facility] [id number] [address] [place] RBC (Bld) [#/Vol]4.27 10*6/uLNormal4.20-6.00[facility] on above:Order Comment: Specimen Type: BLOOD SPECIMENOrdering Facility: [facility] Address:[address] [place], [place] [address]Performed By: #### 92882-2 ####[facility]ITALIA [id number] [place] [address] [place] AMERICAWBC (Bld) [#/Vol]8.97 10*3/uLNormal3.70-11.00[facility] on above:Order Comment: Specimen Type: BLOOD SPECIMENOrdering Facility: [facility] Address:[address] [place], [place] [address]Performed By: #### 64240-5 ####[facility] [id number] [place] [address] [place] AMERICACNDSon 24-66-3622NMYNEganfv [facility] NorthComprehensive metabolic 2000 panelon 68-85-3206Zcjkrzo [Mass/Vol]3.5 g/dLLow3.9-4.9CGreen Cross Hospital on above:Order Comment: Specimen Type: BLOOD SPECIMENOrdering Facility: [facility] Address:[address] [place], [place] [address]Performed By: #### 48964- 9, 16407-4, HSTNT, 2777-1 ####[facility] LABCLIA [id number] [place] [address] [place] AMERICAALP [Catalytic activity/Vol]80 U/GUyrivc30-359SdlajmzdbSelect [facility] on above:Order Comment: Specimen Type: BLOOD SPECIMENOrdering Facility: [facility] Address:[address] [place], [place] [address]Performed By: #### 35281-7, 62202-2, HSTNT, 2777-1 ####[facility] [id number] [place] [address] [place] ALT [Catalytic activity/Vol]10 U/NVvscjh69-17KdatflxhlSelect Medical [facility]ty [facility] on above:Order Comment: Specimen Type: BLOOD SPECIMENOrdering Facility: [facility] Address:[address] [place] [address] Performed By: #### 40179-3, 18278-5, HSTNT, 2777-1 ####[facility]ITALIA [id number] [place] [address] [place] AMERICAAnion gap [Moles/Vol]13 mmol/LNormal8-15[facility] on above:Order Comment: Specimen Type: BLOOD SPECIMENOrdering Facility: [facility] Address:[address] [place], [place] [address]Performed By: #### 29937-3, 26191-2, HSTNT, 2777-1 ####[facility]IA [id number] [place] [address] [place] AMERICAAST [Catalytic activity/Vol]25 U/QImfuzv54-96GvxkqinsxSelect [facility] on above:Order Comment: Specimen Type: BLOOD SPECIMENOrdering Facility: [facility] Address:[address] [place], [place] [address]Result Comment: Results may be falsely increased due to interference from hemolysis. Suggest reorder as clinically indicated.Performed By: #### 77808-0, 15882-3, HSTNT, 2777-1 ####[facility] LABCLIA [id number] [place] [address] [place] AMERICABilirubin [Mass/Vol]0.8 mg/dLNormal0.2-1.3ClevelNovant Health Charlotte Orth[facility] Comment on above:Order Comment: Specimen Type: BLOOD SPECIMENOrdering Facility: [facility] Address:[address] [place] [address] Performed By: #### 42348-7, 38096-7, HSTNT, 2777-1 ####[facility] LABCLIA [id number] [place] [address] [place] AMERICACalcium [Mass/Vol]9.5 mg/dLNormal8.5-10.2ClevelNovant Health Charlotte Orthopaedic HospitalComment on above:Order Comment: Specimen Type: BLOOD SPECIMENOrdering Facility: [facility] Address:[address] [place], [place] [address]Performed By: #### 38670-4, 09809-1, HSTNT, 2776-1 ####[facility] LABCLIA [id number] [place] [address] [place] AMERICAChloride [Moles/Vol]106 mmol/GGtvqyp21-323YexkajbxuSelect Medical Specialty Hospital - [facility] NorthComment on above:Order Comment: Specimen Type: BLOOD SPECIMENOrdering Facility: [facility] Address:[address] [place], [place] [address]Performed By: #### 73098-9, 03808-2, HSTNT, 2777-1 ####[facility] LABCLIA [id number] [place] [address] [place] AMERICACO2 [Moles/Vol]24 mmol/LNormal 22-30[facility] NorthComsheridan community hospital on above:Order Comment: Specimen Type: BLOOD SPECIMENOrdering Facility: [facility] Address:[address] [place], [place] [address]Performed By: #### 67251-6, 92510-4, HSTNT, 277-1 ####[facility] [id number] [address] [address] [place] AMERICACreatinine [Mass/Vol]0.76 mg/dL Normal0.73-1.22[facility] on above:Order Comment: Specimen Type: BLOOD SPECIMENOrdering Facility: [facility] Address:[address] [place], [place] [address]Performed By: #### 34004-5, 11496-0, HSTNT, 2776- ####[facility] [id number] [place] [address] [place] AMERICACreatinine and Glomerular filtration rate.predicted panel (S/P/Bld)99 mL/min/1.73m???Normal>=60 [facility] on above:Order Comment: Specimen Type: BLOOD SPECIMENOrdering Facility: [facility] Address:[address] [place], [place] [address]Result Comment: Estimated Glomerular Filtration Rate (eGFR) is calculated using the 2020 CKD-EPI creatinine equation. This equation utilizes serum creatinine, sex, and age as parameters. The creatinine assay has traceable calibration to isotope dilution-mass spectrometry. Refer to KDIGO guidelines for clinical interpretation. In patients with unstable renal function, e.g. those with acute kidney injury, the eGFR may not accurately reflect actual GFR.Performed By: #### 02394-1, 66352-2, HSTNT, 2776- ####[facility]IA [id number] [address] [address] [place] AMERICAGlucose [Mass/Vol]90 mg/dLNormal 74-99[facility] on above:Order Comment: Specimen Type: BLOOD SPECIMENOrdering Facility: [facility] Address:[address] [place], [place] [address]Result Comment: The [place] Diabetes [employer] (ADA) provides guidance for cutoff [...] unequivocal hyperglycemia, results should be confirmed by repeattesting. In a patient with classic symptoms of hyperglycemia or hyperglycemic crisis, random plasmaglucose results greater than or equal to 200 mg/dL meet the criteria for diagnosis of diabetes.Reference: Standards of Medical Care in Diabetes 2016, [place] [employer]. Diabetes Care. 2016.39(Suppl 1).Performed By: #### 32916- 9, 52579-4, HSTNT, 2777- ####[facility] [id number] [place] [address] [place] Potassium [Moles/Vol]4.2 mmol/LNormal3.7-5.1CGreen Cross Hospital on above:Order Comment: Specimen Type: BLOOD SPECIMENOrdering Facility: [facility] Address:[address] [place], [place] [address]Performed By: #### 61806-3, 79414-4, HSTNT, 2776- ####[facility]ITALIA [id number] [place] [address] [place] Protein [Mass/Vol]6.1 g/dLLow6.3-8.0[facility] on above: Order Comment: Specimen Type: BLOOD SPECIMENOrdering Facility: [facility] Address:[address] [place], [place] [address]Performed By: #### 88804- 9, 96055-0, HSTNT, 277- ####[facility] [id number] [address] STATES OF AMERICASodium [Moles/Vol]143 mmol/FDneavt877-690JfsttagpkSelect [facility] on above: Order Comment: Specimen Type: BLOOD SPECIMENOrdering Facility: [facility] Address:[address] [place], [place] [address]Performed By: #### 31914- 9, 44968-9, HSTNT, 2777-1 ####[facility] LABCLIA [id number] [place] [address] [place] AMERICAUrea nitrogen [Mass/Vol]16 mg/dLNormal9-24[facility] on above: Order Comment: Specimen Type: BLOOD SPECIMENOrdering Facility: [facility] Address:[address] [place], [place] [address]Performed By: #### 99480- 9, 99577-1, HSTNT, 2777-1 ####[facility] LABCLIA [id number] [place] [address] [place] AMERICAECG COMPLETEon 33-80-7047SCF COMPLETENormalCUC West Chester HospitalHIGH SENSITIVITY TROPONIN Ton 99-81-7126Syflryoi T.cardiac High sensitivity method [Mass/Vol]28 ng/LHigh<12[facility] on above:Order Comment: Specimen Type: BLOOD SPECIMENOrdering Facility: [facility] Address:[address] [place], [place] [address]Performed By: #### 08004- 9, 22734-4, HSTNT, 2777-1 ####[facility] LABCLIA [id number] [place] [address] [place] Magnesium SerPl-mCncon 06-56-2217Rhczdoiug [Mass/Vol]2.0 mg/dLNormal1.7-2.3 [facility] on above:Order Comment: Specimen Type: BLOOD SPECIMENOrdering Facility: [facility] Address:[address] [place], [place] [address]Performed By: #### 19985-7, 66730-0, HSTNT, 2777-1 ####[facility] LABCLIA [id number] [place] [address] [place] AMERICAPhosphate SerPl-mCncon 06-08-2024 Phosphate [Mass/Vol]3.3 mg/dLNormal2.7-4.8ClevelNovant Health Charlotte Orthopaedic HospitalComment on above:Order Comment: Specimen Type: BLOOD SPECIMENOrdering Facility: [facility] Address:[address] [place], [place] [address]Performed By: #### 19890-5, 23962-0, HSTNT, 2777-1 ####[facility] LABCLIA [id number] [place] [address] [place] CASE MANAGEMon 15-89-7051FFRH MANAGEMNormalLakeHealth TriPoint [facility] Center W Auto Differential panel (Bld)on 18-90-7922Lulwrwfas (Bld) [#/Vol]0.06 10*3/uLNormal <0.11ClevelNovant Health Charlotte Orthopaedic HospitalComsheridan community hospital on above:Order Comment: Specimen Type: BLOOD SPECIMENOrdering Facility: [facility] Address:[address] [place], [place] [address]Performed By: #### 01476-4 ####[facility] LABCLIA [id number] [place] [address] [place] AMERICABasophils/100 WBC (Bld)0.6 %NormalSelect Medical [facility]ty [facility] Comment on above:Order Comment: Specimen Type: BLOOD SPECIMENOrdering Facility: [facility] Address:[address] [place] [address] Performed By: #### 52818-5 ####[facility] LABCLIA [id number] [place] [address] [place] Differential cell count method Nom (Bld)AutoNormalClevelNovant Health Charlotte Orthopaedic Hospital Comment on above:Order Comment: Specimen Type: BLOOD SPECIMENOrdering Facility: [facility] Address:[address] [place] [address] Performed By: #### 21909-3 ####[facility] LABCLIA [id number] [place] [address] [place] Eosinophils (Bld) [#/Vol]0.32 10*3/uLNormal<0.46[facility] Comment on above:Order Comment: Specimen Type: BLOOD SPECIMENOrdering Facility: [facility] Address:[address] [place] [address] Performed By: #### 09300-4 ####[facility] LABCLIA [id number] [place] [address] [place] Eosinophils/100 WBC (Bld)3.2 %NormalSelect Medical Specialty [facility] on above: Order Comment: Specimen Type: BLOOD SPECIMENOrdering Facility: [facility] Address:[address] [place], [place] [address]Performed By: #### 25601- 8 ####[facility] LABIA [id number] [place] [address] [place] AMERICAErythrocyte distribution width (RBC) [Ratio]13.0 %Ibupaf44.5-15.0Genesis Hospitalment on above: Order Comment: Specimen Type: BLOOD SPECIMENOrdering Facility: [facility] Address:[address] [place], [place] [address]Performed By: #### 68038- 8 ####[facility] LABIA [id number] [place] [address] [place] AMERICAHematocrit (Bld) [Volume fraction]37.7 %Low39.0-51.0[facility] on above:Order Comment: Specimen Type: BLOOD SPECIMENOrdering Facility: [facility] Address:[address] [place], [place] [address]Performed By: #### 70926- 8 ####[facility] LABIA [id number] [place] [address] [place] AMERICAHemoglobin (Bld) [Mass/Vol]12.4 g/dLLow13.0-17.0[facility] on above:Order Comment: Specimen Type: BLOOD SPECIMENOrdering Facility: [facility] Address:[address] [place], [place] [address]Performed By: #### 28128-4 ####[facility] LABCLIA [id number] [place] [address] [place] AMERICAImmature granulocytes (Bld) [#/Vol]0.14 10*3/uLHigh<0.10[facility] on above:Order Comment: Specimen Type: BLOOD SPECIMENOrdering Facility: [facility] Address:[address] [place], [place] [address]Performed By: #### 91143- 8 ####[facility] LABIA [id number] [address], [place] [address] [place] AMERICAImmature granulocytes/100 WBC (Bld)1.4 %NormalSelect Medical Specialty [facility] on above:Order Comment: Specimen Type: BLOOD SPECIMENOrdering Facility: [facility] Address:[address] [place], [place] [address]Performed By: #### 78944-5 ####[facility] LABIA [id number] [place] [address] [place] AMERICALymphocytes (Bld) [#/Vol]2.70 10*3/uLNormal1.00-4.00[facility] on above:Order Comment: Specimen Type: BLOOD SPECIMENOrdering Facility: [facility] Address:[address] [place], [place] [address]Performed By: #### 23986-6 ####[facility] LABCLIA [id number] [place] [address] [place] AMERICALymphocytes/100 WBC (Bld)26.8 % NormalSelect Medical Specialty [facility] on above:Order Comment: Specimen Type: BLOOD SPECIMENOrdering Facility: [facility] Address:[address] [place], [place] [address]Performed By: #### 88987-1 ####[facility] LABCLIA [id number] [place] [address] [place] [facility] - CANTONMCH (RBC) [Entitic mass]31.1 ntVcyzen88.0-34.0[facility] on above:Order Comment: Specimen Type: BLOOD SPECIMENOrdering Facility: [facility] Address:[address] [place], [place] [address]Performed By: #### 15406-1 ####[facility] LABIA [id number] [place] [address] [place] MCHC (RBC) [Mass/Vol]32.9 g/zWUwipdc28.5-36.0[facility] on above:Order Comment: Specimen Type: BLOOD SPECIMENOrdering Facility: [facility] Address:[address] [place] [address] Performed By: #### 78118-2 ####[facility] LABCLIA [id number] [place] [address] [place] MCV (RBC) [Entitic vol]94.5 vAHdtrds18.0-100.0[facility] on above:Order Comment: Specimen Type: BLOOD SPECIMENOrdering Facility: [facility] Address:[address] [place] [address] Performed By: #### 33459-3 ####[facility] LABIA [id number] [place] [address] [place] Monocytes (Bld) [#/Vol]1.26 10*3/uLHigh<0.87[facility] on above:Order Comment: Specimen Type: BLOOD SPECIMENOrdering Facility: [facility] Address:[address] [place], [place] [address]Performed By: #### 43532-6 ####[facility] LABCLIA [id number] [place] [address] [place] AMERICAMonocytes/100 WBC (Bld)12.5 %NormalSelect Medical Specialty [facility] on above:Order Comment: Specimen Type: BLOOD SPECIMENOrdering Facility: [facility] Address:[address] [place], [place] [address]Performed By: #### 37179-9 ####[facility] LABCLIA [id number] [place] [address] [place] AMERICANeutrophils (Bld) [#/Vol]5.60 10*3/uLNormal1.45-7.50[facility] on above:Order Comment: Specimen Type: BLOOD SPECIMENOrdering Facility: [facility] Address:[address] [place], [place] [address]Performed By: #### 53170-9 ####[facility] LABCLIA [id number] [place] [address] [place] AMERICANeutrophils/100 WBC (Bld)55.5 % NormalSelect Medical Specialty Hospital - [facility] NorthComment on above:Order Comment: Specimen Type: BLOOD SPECIMENOrdering Facility: [facility] Address:[address] [place], [place] [address]Performed By: #### 95418-4 ####[facility] LABCLIA [id number] [place] [address] [place] AMERICANucleated RBC (Bld) [#/Vol]10*3/uLNormal<0.01[facility] on above:Order Comment: Specimen Type: BLOOD SPECIMENOrdering Facility: [facility] Address:[address] [place], [place] [address]Performed By: #### 00139-6 ####[facility] LABCLIA [id number] [place] [address] [place] Nucleated RBC/100 WBC (Bld) [Ratio]0.0 /100 WBCNormalCUC [facility] Comment on above:Order Comment: Specimen Type: BLOOD SPECIMENOrdering Facility: [facility] Address:[address] [place] [address] Performed By: #### 93631-4 ####[facility] LABCLIA [id number] [place] [address] [place] Platelet mean volume (Bld) [Entitic vol]10.2 fLNormal9.0-12.7CG[facility] on above:Order Comment: Specimen Type: BLOOD SPECIMENOrdering Facility: [facility] Address:[address] [place], [place] [address]Performed By: #### 43018-1 ####[facility] LABIA [id number] [place] [address] [place] Platelets (Bld) [#/Vol]290 10*3/rIFjmife565-288ImhxmcjcxSelect [facility] on above:Order Comment: Specimen Type: BLOOD SPECIMENOrdering Facility: [facility] Address:[address] [place] [address] Performed By: #### 37913-0 ####[facility] LABIA [id number] [place] [address] [place] RBC (Bld) [#/Vol]3.99 10*6/uLLow4.20-6.00[facility] on above:Order Comment: Specimen Type: BLOOD SPECIMENOrdering Facility: [facility] Address:[address] [place], [place] [address]Performed By: #### 34636-7 ####[facility] LABIA [id number] [place] [address] [place] AMERICAWBC (Bld) [#/Vol]10.08 10*3/uLNormal3.70-11.00[facility] on above:Order Comment: Specimen Type: BLOOD SPECIMENOrdering Facility: [facility] Address:[address] [place], [place] [address]Performed By: #### 31506- 8 ####[facility] LABIA [id number] [place] [address] [place] AMERICAComprehensive metabolic 2000 panelon 72-03-8111Dkunmzq [Mass/Vol]3.9 g/dLNormal3.9-4.9CG[facility] on above:Order Comment: Specimen Type: BLOOD SPECIMENOrdering Facility: [facility] Address:[address] [place], [place] [address]Performed By: #### 36308-2, 2777-1, 31481-1, HSTNT ####[facility] LABCLIA [id number] [place] [address] [place] AMERICAALP [Catalytic activity/Vol]76 U/TSvrixh37-540EdpiatgknSelect Medical Specialty Hospital [facility] on above:Order Comment: Specimen Type: BLOOD SPECIMENOrdering Facility: [facility] Address:[address] [place], [place] [address]Performed By: #### 40666-7, 2777-1, 88857-1, HSTNT ####[facility] LABCLIA [id number] [address] STATES OF AMERICAALT [Catalytic activity/Vol]12 U/UWgiwqy27-61HqgstuvsqSelect Medical Special[facility] on above:Order Comment: Specimen Type: BLOOD SPECIMENOrdering Facility: [facility] Address:[address] [place], [place] [address]Performed By: #### 05723-3, 2777-1, 80532-4, HSTNT ####[facility] LABIA [id number] [place] [address] [place] OF AMERICAAnion gap [Moles/Vol]16 mmol/L High8-15[facility] on above:Order Comment: Specimen Type: BLOOD SPECIMENOrdering Facility: [facility] Address:[address] [place], [place] [address]Performed By: #### 65477-5, 2777-1, 43817-2, HSTNT ####[facility] LABCLIA [id number] [place] [address] [place] AMERICAAST [Catalytic activity/Vol]24 U/NIgsyuy65-81OjphyxxyjSelect [facility] on above:Order Comment: Specimen Type: BLOOD SPECIMENOrdering Facility: [facility] Address:[address] [place], [place] [address]Performed By: #### 34060-5, 2777-1, 41217-8, HSTNT ####[facility] LABCLIA [id number] [place] [address] [place] AMERICABilirubin [Mass/Vol]1.0 mg/dL Normal0.2-1.3CG[facility] on above:Order Comment: Specimen Type: BLOOD SPECIMENOrdering Facility: [facility] Address:[address] [place], [place] [address]Performed By: #### 03765-9, 2777-1, 39571-5, HSTNT ####[facility] LABCLIA [id number] [place] [address] [place] AMERICACalcium [Mass/Vol]9.6 mg/dLNormal 8.5-10.2CG[facility] on above:Order Comment: Specimen Type: BLOOD SPECIMENOrdering Facility: [facility] Address:[address] [place], [place] [address]Performed By: #### 47374-0, 2777-1, 87095-1, HSTNT ####[facility] LABCLIA [id number] [place] [address] [place] AMERICAChloride [Moles/Vol]99 mmol/L Krlhqt24-630KpmvnlnivSelect Medical Specialty Hospital [facility] on above:Order Comment: Specimen Type: BLOOD SPECIMENOrdering Facility: [facility] Address:[address] [place], [place] [address]Performed By: #### 55559-6, 2777-1, 73739-7, HSTNT ####[facility] LABCLIA [id number] [place] [address] [place] AMERICACO2 [Moles/Vol]24 mmol/LNormal 22-30[facility] on above:Order Comment: Specimen Type: BLOOD SPECIMENOrdering Facility: [facility] Address:[address] [place], [place] [address]Performed By: #### 00160-5, 2777-1, 82605-3, HSTNT ####[facility] LABCLIA [id number] [place] [address] [place] AMERICACreatinine [Mass/Vol]1.04 mg/dL Normal0.73-1.22[facility] on above:Order Comment: Specimen Type: BLOOD SPECIMENOrdering Facility: [facility] Address:[address] [place], [place] [address]Performed By: #### 52363-5, 277-, 96688-7, HSTNT ####[facility] LABIA [id number] [place] [address] [place] AMERICACreatinine and Glomerular filtration rate.predicted panel (S/P/Bld)79 mL/min/1.73m???Normal>=60 [facility] on above:Order Comment: Specimen Type: BLOOD SPECIMENOrdering Facility: [facility] Address:[address] [place], [place] [address]Result Comment: Estimated Glomerular Filtration Rate (eGFR) is calculated using the 2020 CKD-EPI creatinine equation. This equation utilizes serum creatinine, sex, and age as parameters. The creatinine assay has traceable calibration to isotope dilution-mass spectrometry. Refer to KDIGO guidelines for clinical interpretation. In patients with unstable renal function, e.g. those with acute kidney injury, the eGFR may not accurately reflect actual GFR.Performed By: #### 57304-2, 2777-1, 62587-3, HSTNT ####[facility] LABCLIA [id number] [address] [address] [place] AMERICAGlucose [Mass/Vol]110 mg/dLHigh 74-99[facility] on above:Order Comment: Specimen Type: BLOOD SPECIMENOrdering Facility: [facility] Address:[facility] [place] [address]Hyuady Comment: The [place] Diabetes Association (ADA) provides guidance for cutoff [...] unequivocal hyperglycemia, results should be confirmed by repeattesting. In a patient with classic symptoms of hyperglycemia or hyperglycemic crisis, random plasmaglucose results greater than or equal to 200 mg/dL meet the criteria for diagnosis of diabetes.Reference: Standards of Medical Care in Diabetes 2016, [place] [employer]. Diabetes Care. 2016.39(Suppl 1).Performed By: #### 49924- 9, 277-, 01590-2, HSTNT ####[facility] LABCLIA [id number] [place] [address] [place] Potassium [Moles/Vol]3.9 mmol/LNormal3.7-5.1CG[facility] on above:Order Comment: Specimen Type: BLOOD SPECIMENOrdering Facility: [facility] Address:[address] [place], [place] [address]Performed By: #### 51771-8, 27709-07, , HSTNT ####[facility] LABCLIA [id number] [place] [address] [place] Protein [Mass/Vol]6.3 g/dLNormal6.3-8.0[facility] on above:Order Comment: Specimen Type: BLOOD SPECIMENOrdering Facility: [facility] Address:[address] [place], [place] [address]Performed By: #### 08613-0, 27709-07, , HSTNT ####[facility] LABCLIA [id number] [place] [address] [place] Sodium [Moles/Vol]139 mmol/EVihxjp557-832HvfhvudtySelect Medical Specialty [facility] on above:Order Comment: Specimen Type: BLOOD SPECIMENOrdering Facility: [facility] Address:[address] [place], [place] [address]Performed By: #### 92106-1, 2777-1, 19341-3, HSTNT ####[facility] LABCLIA [id number] [place] [address] [place] Urea nitrogen [Mass/Vol]17 mg/dLNormal9-24[facility] on above:Order Comment: Specimen Type: BLOOD SPECIMENOrdering Facility: [facility] Address:[address] [place], [place] [address]Performed By: #### 53099-4, 2776-1, 92644-9, HSTNT ####[facility] LABCLIA [id number] [place] [address] [place] ECG COMPLETEon 10-77-3994GPK COMPLETENormalCUC West Chester HospitalHIGH SENSITIVITY TROPONIN Ton 74-32-3132Duhsceuv T.cardiac High sensitivity method [Mass/Vol]31 ng/LHigh<12[facility] on above:Order Comment: Specimen Type: BLOOD SPECIMENOrdering Facility: [facility] Address:[address] [place], [place] [address]Performed By: #### 70453- 9, 2776-, 77069-1, HSTNT ####[facility] LABCLIA [id number] [place] [address] [place] AMERICAMEDICAL EMERon 21-44-3517JLOPCQX EMERNormalCUC West Chester HospitalMagnesium SerPl-mCncon 34-67-5767Nuffhvwft [Mass/Vol]1.9 mg/dLNormal1.7-2.3CG[facility] on above:Order Comment: Specimen Type: BLOOD SPECIMENOrdering Facility: [facility] Address:[address] [place], [place] [address]Performed By: #### 24136-2, 2777-1, 86006-3, HSTNT ####[facility] LABCLIA [id number] [address] [address] [place] OF ARMENIANURSING PROGon 24-45-5293FACEHHS PROGNormalSelect Medical Specialty Hospital [facility] NorthNURSING PROGNormalSelect [facility] Phosphate SerPl-mCncon 97-23-4418Krngjjzpm [Mass/Vol]3.3 mg/dLNormal2.7-4.8 [facility] NorthComsheridan community hospital on above:Order Comment: Specimen Type: BLOOD SPECIMENOrdering Facility: [facility] Address:[address] [place], [place] [address]Performed By: #### 24317-9, 2777-1, 55855-7, HSTNT ####[facility] LABCLIA [id number] [place] [address] [place] AMERICAARTERIAL BLOOD GASESon 06-06-2024 Base excess Calc (Bld) [Moles/Vol]4 mmol/LHigh0-2[facility] Comment on above:Order Comment: Specimen Type: ARTERIAL BLOOD SPECIMENOrdering Facility: [facility]Address: [facility] [place], [place] [address]Performed By: #### ALLBG ####[facility] LABCLIA [id number] [place] [address] [place] Body lfbrjcbcoqq00.6 [degF]NormalSelect Medical Specialty [facility] on above: Order Comment: Specimen Type: ARTERIAL BLOOD SPECIMENOrdering Facility: [facility]Address: [address] [place] [id number] Performed By: #### ALLBG ####[facility] LABIA [id number] [place] [address] [place] Calcium.ionized (Bld) [Mass/Vol]1.23 mmol/LNormal1.08-1.30[facility] on above:Order Comment: Specimen Type: ARTERIAL BLOOD SPECIMENOrdering Facility: [facility]Address: [address] [place], [place] [address]Performed By: #### ALLBG ####[facility] LABIA [id number] [place] [address] [place] AMERICACalcium.ionized adjusted to pH 7.4 (BldA) [Moles/Vol]1.26 mmol/LNormal 1.08-1.30[facility] on above:Order Comment: Specimen Type: ARTERIAL BLOOD SPECIMENOrdering Facility: [facility] Address: [address] [place], [place] [address]Performed By: #### ALLBG ####[facility] LABIA [id number] [address] STATES OF [facility] CANTONCarboxyhemoglobin (BldA) [Mass fraction]1.2 %Normal0.0-2.0[facility] on above:Order Comment: Specimen Type: ARTERIAL BLOOD SPECIMENOrdering Facility: [facility]Address: [address] [place], [place] [address]Result Comment: Carboxyhemoglobin Reference Range for Smokers: 2.0-8.0%Performed By: #### ALLBG ####[facility] LABIA [id number] [place] [address] [place] AMERICACO2 (Bld) [Partial pressure]39 mm UzLztnbv64-14YfukgnscmSelect Medical Specialty [facility] on above:Order Comment: Specimen Type: ARTERIAL BLOOD SPECIMENOrdering Facility: [facility] Address: [address] [place], [place] [address]Performed By: #### ALLBG ####[facility] LABIA [id number] [place] [address] [place] AMERICAGlucose [Mass/Vol]116 mg/dLHigh 60-105[facility] on above:Order Comment: Specimen Type: ARTERIAL BLOOD SPECIMENOrdering Facility: [facility]Address: [address] [place], [place] [address]Performed By: #### ALLBG ####[facility] LABCLIA [id number] [facility]D [address] [place] [address] [place] AMERICAHCO3 (Bld) [Moles/Vol]27 mmol/KKsuy71-72CnuufxwlnSelect Medical Specialty [facility] on above:Order Comment: Specimen Type: ARTERIAL BLOOD SPECIMENOrdering Facility: [facility]Address: [address] [place], [place] [address]Performed By: #### ALLBG ####[facility] LABIA [id number] [address] [place] [address] [place] AMERICAHematocrit (Bld) [Volume fraction]39.5 %Vgncvw45.0-51.0[facility] NorthComment on above:Order Comment: Specimen Type: ARTERIAL BLOOD SPECIMENOrdering Facility: [facility]Address: [address] [place] [id number] By: #### ALLBG ####[facility] LABIA [id number] [place] [address] [place] AMERICAHemoglobin (Bld) [Mass/Vol]12.9 g/dLLow13.0-17.0[facility] on above:Order Comment: Specimen Type: ARTERIAL BLOOD SPECIMENOrdering Facility: [facility]Address: [address] [facility]ITALMary [place] [id number] By: #### ALLBG ####[facility] LABIA [id number] [place] [address] [place] AMERICALactate [Moles/Vol]0.6 mmol/LNormal0.5-2.2[facility] Comment on above:Order Comment: Specimen Type: ARTERIAL BLOOD SPECIMENOrdering Facility: [facility]Address: [address] [facility]ITALMary [place] [id number] By: #### ALLBG ####[facility] LABIA [id number] [address] [address] [place] Methemoglobin (Bld) [Mass fraction]0.5 %Normal0.0-1.5[facility] Comment on above:Order Comment: Specimen Type: ARTERIAL BLOOD SPECIMENOrdering Facility: [facility]Address: [address] [place], [place] [address]Performed By: #### ALLBG ####[facility] LABCLIA [id number] [address] O2 THERAPYRA=Room AirNormalCGreen Cross Hospital on above:Order Comment: Specimen Type: ARTERIAL BLOOD SPECIMENOrdering Facility: [facility]Address: [address] [place], [place] [address]Performed By: #### ALLBG ####[facility] LABCLIA [id number] [place] [address] [place] [facility]ANTONOxygen (Bld) [Partial pressure]74 mm YxKrc22-36QuixcgiiyGenesis Hospitalment on above:Order Comment: Specimen Type: ARTERIAL BLOOD SPECIMENOrdering Facility: [facility] Address: [address] [place], [place] [address]Performed By: #### ALLBG ####[facility] [id number] [address] OF [facility] CANTONOxyhemoglobin (BldA) [Mass fraction]94 %Efb76-17OdpxuukevSelect Medical Specialty [facility] on above:Order Comment: Specimen Type: ARTERIAL BLOOD SPECIMENOrdering Facility: [facility]Address: [address] [facility]Mary [place], [place] [address]Performed By: #### ALLBG ####[facility] [id number] [place] [id number] [place] AMERICApH (Bld)7.46 [pH]High7.35-7.45 [facility] on above:Order Comment: Specimen Type: ARTERIAL BLOOD SPECIMENOrdering Facility: [facility]Address: [address] [place], [place] [address]Performed By: #### ALLBG ####[facility] [id number] [address] [address] [place] OF AMERICAPO2 / FIO2 USLVU312 mmHgNormal>300[facility] on above:Order Comment: Specimen Type: ARTERIAL BLOOD SPECIMENOrdering Facility: [facility]Address: [address] [place], [place] [address]Performed By: #### ALLBG ####[facility] [id number] [address], [facility]95 [place] AMERICAPotassium [Moles/Vol]3.8 mmol/LNormal3.5-5.0[facility] Comment on above:Order Comment: Specimen Type: ARTERIAL BLOOD SPECIMENOrdering Facility: [facility]Address: [address] [place], [place] [address]Performed By: #### ALLBG ####[facility] [id number] [place] [address] [place] Sodium [Moles/Vol]137 mmol/SCxcfgz098-612YfpyzbvkySelect Medical Specialty [facility] on above:Order Comment: Specimen Type: ARTERIAL BLOOD SPECIMENOrdering Facility: [facility]Address: [address] [place] [address] Performed By: #### ALLBG ####[facility] [id number] [place] [address] [place] AMERICABasic metabolic 2000 panelon 89-94-0825Hdozb gap [Moles/Vol]11 mmol/LNormal8-15 [facility] on above:Order Comment: Specimen Type: BLOOD SPECIMENOrdering Facility: [facility] Address:[address] [place], [place] [address]Performed By: #### 39986-1, HSTNT ####[facility] [id number] [address] [address] [place] AMERICACalcium [Mass/Vol]9.8 mg/dLNormal8.5-10.2[facility] on above:Order Comment: Specimen Type: BLOOD SPECIMENOrdering Facility: [facility] Address:[address] [place], [place] [address]Performed By: #### 70005-1, HSTNT ####[facility] [id number] [place] [address] [place] Chloride [Moles/Vol]102 mmol/NXidoee27-779KpofbvlvnSelect Medical [facility]ty [facility] on above:Order Comment: Specimen Type: BLOOD SPECIMENOrdering Facility: [facility] Address:[address] [place], [place] [address]Performed By: #### 57989-6, HSTNT ####[facility] [id number] [place] [address] [place] AMERICACO2 [Moles/Vol]27 mmol/MIwsary93-01KwmmnmrxeSelect Medical Specialty [facility] on above:Order Comment: Specimen Type: BLOOD SPECIMENOrdering Facility: [facility] Address:[address] [place], [place] [address]Performed By: #### 98580-1, HSTNT ####[facility] LABIA [id number] [place] [address] [place] AMERICACreatinine [Mass/Vol]1.00 mg/dL Normal0.73-1.22[facility] on above:Order Comment: Specimen Type: BLOOD SPECIMENOrdering Facility: [facility] Address:[address] [place], [place] [address]Performed By: #### 95039-8, HSTNT ####[facility] LABIA [id number] [place] [address] [place] AMERICACreatinine and Glomerular filtration rate.predicted panel (S/P/Bld)82 mL/min/1.73m???Normal>=60[facility] on above:Order Comment: Specimen Type: BLOOD SPECIMENOrdering Facility: [facility] Address:[address] [place], [place] [address]Result Comment: Estimated Glomerular Filtration Rate (eGFR) is calculated using the 2020 CKD-EPI creatinine equation. This equation utilizes serum creatinine, sex, and age as parameters. The creatinine assay has traceable calibration to isotope dilution-mass spectrometry. Refer to KDIGO guidelines for clinical interpretation. In patients with unstable renal function, e.g. those with acute kidney injury, the eGFR may not accurately reflect actual GFR.Performed By: #### 72000-0, HSTNT ####[facility] [id number] [address] [address] [place] AMERICAGlucose [Mass/Vol]94 mg/rNMqqidj67-18DxmbpbgjbSelect [facility] Comment on above:Order Comment: Specimen Type: BLOOD SPECIMENOrdering Facility: [facility] Address:[address] [place], [place] [address]Result Comment: The [place] Diabetes Association (ADA) provides guidance for cutoff values for fasting glucose and random glucose. The ADA defines fasting as no caloric intake for at least 8 hours. Fasting plasma glucose results between 100 to 125 mg/dL indicate increased risk for diabetes (prediabetes).Fasting plasma glucose results greater than or equal to 126 mg/dL meet the criteria for diagno sis of diabetes. In the absence of unequivocal hyperglycemia, results should be confirmed by repeattesting. In a patient with classic symptoms of hyperglycemia or hyperglycemic crisis, random plasmaglucose results greater than or equal to 200 mg/dL meet the criteria for diagnosis of diabetes.Reference: Standards of Medical Care in Diabetes 2016, [place] [employer]. Diabetes Care. 2016.39(Suppl 1).Performed By: #### 36790-8, HSTNT ####[facility] [id number] [address] [address] [place] AMERICAPotassium [Moles/Vol]4.3 mmol/LNormal3.7-5.1ClevelNovant Health Charlotte Orthopaedic HospitalComment on above:Order Comment: Specimen Type: BLOOD SPECIMENOrdering Facility: [facility] Address:[address] [place] [id number] By: #### 69240-9, HSTNT ####[facility]CL[facility] [id number] [place] [address] [place] Sodium [Moles/Vol]140 mmol/KCwycol358-319KoqzzfwnzSelect [facility] on above:Order Comment: Specimen Type: BLOOD SPECIMENOrdering Facility: [facility] Address:[address] [place], [place] [address]Performed By: #### 55653-8, HSTNT ####[facility] LABIA [id number] [place] [address] [place] [facility] CANTONUrea nitrogen [Mass/Vol]16 mg/dLNormal9-24[facility] on above:Order Comment: Specimen Type: BLOOD SPECIMENOrdering Facility: [facility] Address:[address] [place], [place] [address]Performed By: #### 03919- 2, HSTNT ####[facility] [id number] [address] STATES OF [facility] CANTONCBC panel Auto (Bld)on 05-53-4472Rwwoqzkxpxa distribution width (RBC) [Ratio]13.0 %Klmpvt21.5-15.0 [facility] on above:Order Comment: Specimen Type: BLOOD SPECIMENOrdering Facility: [facility] Address:[address] [place], [place] [address]Performed By: #### 69993-4 ####[facility] LABIA [id number] [address] STATES OF [facility] CANTONHematocrit (Bld) [Volume fraction]39.7 %Wapahk89.0-51.0[facility] on above:Order Comment: Specimen Type: BLOOD SPECIMENOrdering Facility: [facility] Address:[address] [place], [place] [address]Performed By: #### 30912-5 ####[facility] LABIA [id number] [place] [address] [place] Hemoglobin (Bld) [Mass/Vol]13.0 g/fIZhqisr89.0-17.0[facility] Comment on above:Order Comment: Specimen Type: BLOOD SPECIMENOrdering Facility: [facility] Address:[address] [place] [address] Performed By: #### 14899-9 ####[facility] LABIA [id number] [place] [address] [place] MCH (RBC) [Entitic mass]31.5 plNhouwe33.0-34.0[facility] NorthComsheridan community hospital on above:Order Comment: Specimen Type: BLOOD SPECIMENOrdering Facility: [facility] Address:[address] [place] [address] Performed By: #### 37435-3 ####[facility] [id number] [place] [address] [place] MCHC (RBC) [Mass/Vol]32.7 g/bNMeqtxa21.5-36.0[facility] NorthComment on above:Order Comment: Specimen Type: BLOOD SPECIMENOrdering Facility: [facility] Address:[address] [place] [address] Performed By: #### 08852-9 ####[facility] [id number] [place] [address] [place] MCV (RBC) [Entitic vol]96.1 pZJomsrk82.0-100.0[facility] on above:Order Comment: Specimen Type: BLOOD SPECIMENOrdering Facility: [facility] Address:[address] [place] [address] Performed By: #### 35015-5 ####[facility] LABIA [id number] [place] [address] [place] Nucleated RBC (Bld) [#/Vol]10*3/uLNormal<0.01[facility] on above:Order Comment: Specimen Type: BLOOD SPECIMENOrdering Facility: [facility] Address:[address] [place] [address] Performed By: #### 03036-2 ####[facility] LABIA [id number] [place] [address] [place] Platelet mean volume (Bld) [Entitic vol]10.4 fLNormal9.0-12.7CG[facility] on above:Order Comment: Specimen Type: BLOOD SPECIMENOrdering Facility: [facility] Address:[address] [place], [place] [address]Performed By: #### 39046-6 ####[facility] LABIA [id number] [place] [address] [place] Platelets (Bld) [#/Vol]320 10*3/fIIwndgi048-605ZiftiycgbSelect Medical Specialty [facility] on above:Order Comment: Specimen Type: BLOOD SPECIMENOrdering Facility: [facility] Address:[address] [place] [address] Performed By: #### 57569-3 ####[facility] LABIA [id number] [place] [address] [place] RBC (Bld) [#/Vol]4.13 10*6/uLLow4.20-6.00[facility] on above:Order Comment: Specimen Type: BLOOD SPECIMENOrdering Facility: [facility] Address:[address] [place], [place] [address]Performed By: #### 64155-9 ####[facility] LABIA [id number] [place] [address] [place] AMERICAWBC (Bld) [#/Vol]9.89 10*3/uLNormal3.70-11.00[facility] on above:Order Comment: Specimen Type: BLOOD SPECIMENOrdering Facility: [facility] Address:[address] [place], [place] [address]Performed By: #### 44807-0 ####[facility] LABCL[facility] [id number] [place] [address] [place] AMERICAHIGH SENSITIVITY TROPONIN Ton 41-96-3156Etilaktg T.cardiac High sensitivity method [Mass/Vol]25 ng/LHigh<12 [facility] NorthComment on above:Order Comment: Specimen Type: BLOOD SPECIMENOrdering Facility: [facility] Address:[address] [place], [place] [address]Performed By: #### 32955-6, HSTNT ####[facility] LABCLIA [id number] [address] STATES OF ARMENIANURSING PROGon 81-23-2008LLRMSOA PROGNormalSelect Medical Specialty Hospital [facility] NorthNURSING PROGNormalSelect Medical Specialty Hospital [facility] NorthXR CERVICAL 2V AP/LATon 31-96-7558FF CERVICAL 2V AP/LATNormalCUC West Chester HospitalAPAP SerPl-mCncon 76-74-2794Xwdmpgifguzee [Mass/Vol]ug/fZUhv79-00JdonhbvvrSelect [facility] Comment on above:Order Comment: Specimen Type: BLOOD SPECIMENOrdering Facility: [facility] Address:[address] [place], [place] [address]Result Comment: Toxic > 150 ug/mL 4 hours post ingestionThe Anahi Terrell nomogram can be used to estimate the probability of hepatotoxicity via the relationship of plasma acetaminophen concentration to the post ingestion interval. (Greg. Pediatrics. 1975. 55:871 to 876 and Anahiet al. Arch Fruit Room Hand Med. 1981. 141:380 to 385).Reference ranges and high/low indicator flags are provided as general guidelines only. The treating physician must determine appropriate target levels/dosing based on the specific clinical situation.Performed By: #### 3298-7 ####[facility] LABCLIA [id number] [place] [address] [place] AMERICABasic metabolic 2000 panelon 21-56-2575Mrqwo gap [Moles/Vol]9 mmol/LNormal8-15[facility] NorthComment on above:Order Comment: Specimen Type: BLOOD SPECIMENOrdering Facility: [facility] Address:[address] [place], [place] [address]Performed By: #### 73374-6 ####[facility]CL[facility] [id number] [address] [address] [place] Calcium [Mass/Vol]9.4 mg/dLNormal8.5-10.2CG[facility] on above:Order Comment: Specimen Type: BLOOD SPECIMENOrdering Facility: [facility] Address:[address] [place], [place] [address]Performed By: #### 25135-6 ####[facility] LABCL[facility] [id number] [place] [address] [place] AMERICAChloride [Moles/Vol] 106 mmol/XOdfcbz27-099MpdculgbzSelect [facility] on above:Order Comment: Specimen Type: BLOOD SPECIMENOrdering Facility: [facility] Address:[address] [place], [place] [address]Performed By: #### 56754-5 ####[facility]CL[facility] [id number] [place] [address] [place] AMERICACO2 [Moles/Vol]27 mmol/LNormal 22-30[facility] on above:Order Comment: Specimen Type: BLOOD SPECIMENOrdering Facility: [facility] Address:[address] [place], [place] [address]Performed By: #### 38470-2 ####[facility]CL[facility] [id number] [address] [address] [place] AMERICACreatinine [Mass/Vol]1.07 mg/dLNormal0.73-1.22[facility] on above:Order Comment: Specimen Type: BLOOD SPECIMENOrdering Facility: [facility] Address:[address] [place], [place] [address]Performed By: #### 46459-8 ####[facility]CL[facility] [id number] [place] [address] [place] Creatinine and Glomerular filtration rate.predicted panel (S/P/Bld)76 mL/min/1.73m???Normal>=60[facility] on above:Order Comment: Specimen Type: BLOOD SPECIMENOrdering Facility: [facility] Address:[address] [place], [place] [address]Result Comment: Estimated Glomerular Filtration Rate (eGFR) is calculated using the 2020 CKD-EPI cre atinine equation. This equation utilizes serum creatinine, sex, and age as parameters. The creatinine assay has traceable calibration to isotope dilution- mass spectrometry. Refer to KDIGO guidelines for clinical interpretation. In patients with unstable renal function, e.g. those with acute kidney injury, the eGFR may not accurately reflect actual GFR.Performed By: #### 22039-9 ####[facility] LABIA [id number] [address] [address] [place] AMERICAGlucose [Mass/Vol]98 mg/dLNormal 74-99[facility] on above:Order Comment: Specimen Type: BLOOD SPECIMENOrdering Facility: [facility] Address:[address] [place], [place] [address]Result Comment: The [place] Diabetes Association (ADA) provides guidance for cutoff [...] unequivocal hyperglycemia, results should be confirmed by repeattesting. In a patient with classic symptoms of hyperglycemia or hyperglycemic crisis, random plasmaglucose results greater than or equal to 200 mg/dL meet the criteria for diagnosis of diabetes.Reference: Standards of Medical Care in Diabetes 2016, [place] [employer]. Diabetes Care. 2016.39(Suppl 1).Performed By: #### 79018-1 ####[facility] LABIA [id number] [address] [address] [place] AMERICAPotassium [Moles/Vol]4.3 mmol/L Normal3.7-5.1[facility] on above:Order Comment: Specimen Type: BLOOD SPECIMENOrdering Facility: [facility] Address:[address] [place], [place] [address]Performed By: #### 54076-5 ####[facility] LABCL[facility] [id number] [place] [address] [place] AMERICASodium [Moles/Vol]142 mmol/KSdlupo031-498LfhtzniazSelect Medical Specialty [facility] on above:Order Comment: Specimen Type: BLOOD SPECIMENOrdering Facility: [facility] Address:[address] [place], [place] [address]Performed By: #### 21841-4 ####[facility] LABIA [id number] [place] [address] [place] AMERICAUrea nitrogen [Mass/Vol]12 mg/dLNormal9-24[facility] Comment on above:Order Comment: Specimen Type: BLOOD SPECIMENOrdering Facility: [facility] Address:[address] [place] [address] Performed By: #### 67740-4 ####[facility] LABIA [id number] [place] [address] [place] CBC panel Auto (Bld)on 40-35-3977Ptbottyxhui distribution width (RBC) [Ratio] 13.5 %Hnfrxx62.5-15.0[facility] on above:Order Comment: Specimen Type: BLOOD SPECIMENOrdering Facility: [facility] Address:[address] [place], [place] [address]Performed By: #### 13565-2 ####[facility] LABIA [id number] [place] [address] [place] AMERICAHematocrit (Bld) [Volume fraction]38.8 %Low39.0-51.0[facility] on above:Order Comment: Specimen Type: BLOOD SPECIMENOrdering Facility: [facility] Address:[address] [place], [place] [address]Performed By: #### 90050- 2 ####[facility] LABIA [id number] [address] STREETHemoglobin (Bld) [Mass/Vol]12.2 g/dLLow13.0-17.0[facility] on above:Order Comment: Specimen Type: BLOOD SPECIMENOrdering Facility: [facility] Address:[address] [place], [place] [address]Performed By: #### 91081-4 ####[facility] LABIA [id number] [address] (RBC) [Entitic mass]31.1 pg Qvrmtj20.0-34.0[facility] on above:Order Comment: Specimen Type: BLOOD SPECIMENOrdering Facility: [facility] Address:[address] [place], [place] [address]Performed By: #### 73778-9 ####[facility] LABIA [id number] [address]ETMCHC (RBC) [Mass/Vol]31.4 g/dL Xyzlih96.5-36.0[facility] on above:Order Comment: Specimen Type: BLOOD SPECIMENOrdering Facility: [facility] Address:[address] [place], [place] [address]Performed By: #### 80657-8 ####[facility] LABIA [id number] [place] [address] [facility]MARYV (RBC) [Entitic vol]99.0 fL Nbcxpd77.0-100.0[facility] on above:Order Comment: Specimen Type: BLOOD SPECIMENOrdering Facility: [facility] Address:[address] [place], [place] [address]Performed By: #### 11214-1 ####[facility] LABCLIA [id number] [address] [place] [address] [place] AMERICANucleated RBC (Bld) [#/Vol] 10*3/uLNormal<0.01[facility] on above:Order Comment: Specimen Type: BLOOD SPECIMENOrdering Facility: [facility] Address:[address] [place], [place] [address]Performed By: #### 57809-8 ####[facility] LABIA [id number] [address], [place] [address] [place] AMERICAPlatelet mean volume (Bld) [Entitic vol]10.2 fLNormal9.0-12.7[facility] on above: Order Comment: Specimen Type: BLOOD SPECIMENOrdering Facility: [facility] Address:[address] [place], [place] [address]Performed By: #### 08786- 2 ####[facility] LABIA [id number] [place] [address] [place] AMERICAPlatelets (Bld) [#/Vol]239 10*3/qWBebdve857-664BpdincfuySelect [facility] on above:Order Comment: Specimen Type: BLOOD SPECIMENOrdering Facility: [facility] Address:[address] [place], [place] [address]Performed By: #### 55322-5 ####[facility] LABIA [id number] [place] [address] [place] AMERICARBC (Bld) [#/Vol]3.92 10*6/uLLow 4.20-6.00[facility] on above:Order Comment: Specimen Type: BLOOD SPECIMENOrdering Facility: [facility] Address:[address] [place], [place] [address]Performed By: #### 29044-1 ####[facility] LABIA [id number] [place] [address] [place] AMERICAWBC (Bld) [#/Vol]10.60 10*3/uLNormal3.70-11.00[facility] on above:Order Comment: Specimen Type: BLOOD SPECIMENOrdering Facility: [facility] Address:[address] [place], [place] [address]Performed By: #### 19381-4 ####[facility] LABCLIA [id number] [place] [address] [place] AMERICAHepatic function 2000 panelon 57-96-6896Ltomukp [Mass/Vol]4.0 g/dLNormal 3.9-4.9[facility] on above:Order Comment: Specimen Type: BLOOD SPECIMENOrdering Facility: [facility] Address:[address] [place], [place] [address]Performed By: #### 85263-9 ####[facility] LABCLIA [id number] [place] [address] [place] AMERICAALP [Catalytic activity/Vol]62 U/MUdctsg89-635PifeqpuwcSelect [facility] on above:Order Comment: Specimen Type: BLOOD SPECIMENOrdering Facility: [facility] Address:[address] [place], [place] [address]Performed By: #### 15762-3 ####[facility] LABCLIA [id number] [place] [address] [place] ALT [Catalytic activity/Vol]9 U/EGnc64-09QodpmyfgbSelect Medical [facility] on above:Order Comment: Specimen Type: BLOOD SPECIMENOrdering Facility: [facility] Address:[address] [place], [place] [address]Performed By: #### 21034-8 ####[facility] LABCLIA [id number] [place] [address] [place] AMERICAAST [Catalytic activity/Vol]26 U/PMuanyd37-71QwgdwpzxjSelect [facility] on above:Order Comment: Specimen Type: BLOOD SPECIMENOrdering Facility: [facility] Address:[address] [place], [place] [address]Performed By: #### 41925- 3 ####[facility] [id number] [place] [address] [place] AMERICABilirubin [Mass/Vol]0.5 mg/dL Normal0.2-1.3[facility] on above:Order Comment: Specimen Type: BLOOD SPECIMENOrdering Facility: [facility] Address:[address] [place], [place] [address]Performed By: #### 47252-6 ####[facility] [id number] [place] [address] [place] AMERICABilirubin.conjugated [Mass/Vol]0.2 mg/dLNormal<0.3 [facility] on above:Order Comment: Specimen Type: BLOOD SPECIMENOrdering Facility: [facility] Address:[address] [place], [place] [address]Performed By: #### 51427-0 ####[facility] [id number] [place] [address] [place] AMERICAProtein [Mass/Vol]6.0 g/dLLow6.3-8.0[facility] on above:Order Comment: Specimen Type: BLOOD SPECIMENOrdering Facility: [facility] Address:[address] [place], [place] [address]Performed By: #### 38248-9 ####[facility] [id number] [place] [address] [place] AMERICATHERAPY NTon 62-83-7146EDPJFAD NTNormalCUC West Chester HospitalXR CERVICAL 2V AP/LATon 77-24-8159UP CERVICAL 2V AP/LATNormalCUC West Chester HospitalBasi metabolic 2000 panelon 40-19-1805Pjmwp gap [Moles/Vol]14 mmol/LNormal8-15[facility] on above:Order Comment: Specimen Type: BLOOD SPECIMENOrdering Facility: [facility] Address:[address] [place], [place] [address]Performed By: #### 48840-8 ####[facility] LABCLIA [id number] [address] [address] [place] Calcium [Mass/Vol]9.5 mg/dLNormal8.5-10.2[facility] on above:Order Comment: Specimen Type: BLOOD SPECIMENOrdering Facility: [facility] Address:[address] [place], [place] [address]Performed By: #### 37712-1 ####[facility] LABCLIA [id number] [address] [address] [place] AMERICAChloride [Moles/Vol] 103 mmol/BVxtxjb65-995AjlrkufbqSelect [facility] on above:Order Comment: Specimen Type: BLOOD SPECIMENOrdering Facility: [facility] Address:[address] [place], [place] [address]Performed By: #### 41081-6 ####[facility] LABCLIA [id number] [address] [address] [place] AMERICACO2 [Moles/Vol]23 mmol/LNormal 22-30[facility] on above:Order Comment: Specimen Type: BLOOD SPECIMENOrdering Facility: [facility] Address:[address] [place], [place] [address]Performed By: #### 00808-7 ####[facility] LABCLIA [id number] [address] [address] [place] AMERICACreatinine [Mass/Vol]0.88 mg/dLNormal0.73-1.22[facility] on above:Order Comment: Specimen Type: BLOOD SPECIMENOrdering Facility: [facility] Address:[address] [place], [place] [address]Performed By: #### 43827-8 ####[facility] LABCLIA [id number] [address] [address] [place] Creatinine and Glomerular filtration rate.predicted panel (S/P/Bld)94 mL/min/1.73m???Normal>=60[facility] on above:Order Comment: Specimen Type: BLOOD SPECIMENOrdering Facility: [facility] Address:[address] [place], [place] [address]Result Comment: Estimated Glomerular Filtration Rate (eGFR) is calculated using the 2020 CKD-EPI cre atinine equation. This equation utilizes serum creatinine, sex, and age as parameters. The creatinine assay has traceable calibration to isotope dilution- mass spectrometry. Refer to KDIGO guidelines for clinical interpretation. In patients with unstable renal function, e.g. those with acute kidney injury, the eGFR may not accurately reflect actual GFR.Performed By: #### 48541-2 ####[facility] LABCLIA [id number] [place] [address] [place] AMERICAGlucose [Mass/Vol]135 mg/dLHigh 74-99[facility] on above:Order Comment: Specimen Type: BLOOD SPECIMENOrdering Facility: [facility] Address:[address] [place], [place] [address]Result Comment: The [place] Diabetes Association (ADA) provides guidance for cutoff [...] unequivocal hyperglycemia, results should be confirmed by repeattesting. In a patient with classic symptoms of hyperglycemia or hyperglycemic crisis, random plasmaglucose results greater than or equal to 200 mg/dL meet the criteria for diagnosis of diabetes.Reference: Standards of Medical Care in Diabetes 2016, [place] [employer]. Diabetes Care. 2016.39(Suppl 1).Performed By: #### 06190-0 ####[facility] LABCLIA [id number] [place] [address] [place] AMERICAPotassium [Moles/Vol]4.2 mmol/L Normal3.7-5.1[facility] on above:Order Comment: Specimen Type: BLOOD SPECIMENOrdering Facility: [facility] Address:[address] [place], [place] [address]Performed By: #### 48129-3 ####[facility] LABCL[facility] [id number] [place] [address] [place] AMERICASodium [Moles/Vol]140 mmol/FSvfyna661-144QnpexrhhaSelect Medical [facility]ty [facility] on above:Order Comment: Specimen Type: BLOOD SPECIMENOrdering Facility: [facility] Address:[address] [place], [place] [address]Performed By: #### 93383-1 ####[facility] [id number] [place] [address] [place] AMERICAUrea nitrogen [Mass/Vol]15 mg/dLNormal9-24[facility] Comment on above:Order Comment: Specimen Type: BLOOD SPECIMENOrdering Facility: [facility] Address:[address] [place] [address] Performed By: #### 72001-0 ####[facility] [id number] [place] [address] [place] CASE MGT INIT ASSESon 94-92-8460SRCN MGT INIT [facility] CampusCB panel Auto (Bld)on 78-40-2832Xbqjwlxbtnq distribution width (RBC) [Ratio]13.0 %Tqfqpe97.5-15.0[facility] on above:Order Comment: Specimen Type: BLOOD SPECIMENOrdering Facility: [facility] Address:[address] [place], [place] [address]Performed By: #### 59272- 2 ####[facility] LABCL[facility] [id number] [place] [address] [place] AMERICAHematocrit (Bld) [Volume fraction]37.5 %Low39.0-51.0[facility] on above:Order Comment: Specimen Type: BLOOD SPECIMENOrdering Facility: [facility] Address:[address] [place], [place] [address]Performed By: #### 33102- 2 ####[facility] [id number] [address] SHEL[address] STREETHemoglobin (Bld) [Mass/Vol]12.4 g/dLLow13.0-17.0[facility] on above:Order Comment: Specimen Type: BLOOD SPECIMENOrdering Facility: [facility] Address:[address] [place], [place] [address]Performed By: #### 00377-2 ####[facility] [id number] [address] (RBC) [Entitic mass]31.2 pg Gdcxgc09.0-34.0[facility] on above:Order Comment: Specimen Type: BLOOD SPECIMENOrdering Facility: [facility] Address:[address] [place], [place] [address]Performed By: #### 69368-1 ####[facility] LABROCKINGH[facility] MEM[facility] [id number] [address]ETMCHC (RBC) [Mass/Vol]33.1 g/dL Fkumob47.5-36.0[facility] on above:Order Comment: Specimen Type: BLOOD SPECIMENOrdering Facility: [facility] Address:[address] [place], [place] [address]Performed By: #### 12763-6 ####[facility] [id number] [address] (RBC) [Entitic vol]94.5 fL Rlpzwh10.0-100.0[facility] on above:Order Comment: Specimen Type: BLOOD SPECIMENOrdering Facility: [facility] Address:[address] [place], [place] [address]Performed By: #### 95589-6 ####[facility] LABCLIA [id number] [address] [place] [address] [place] AMERICANucleated RBC (Bld) [#/Vol] 10*3/uLNormal<0.01[facility] on above:Order Comment: Specimen Type: BLOOD SPECIMENOrdering Facility: [facility] Address:[address] [place], [place] [address]Performed By: #### 76013-5 ####[facility] LABCLIA [id number] [address] [place] [address] [place] AMERICAPlatelet mean volume (Bld) [Entitic vol]10.4 fLNormal9.0-12.7[facility] on above: Order Comment: Specimen Type: BLOOD SPECIMENOrdering Facility: [facility] Address:[address] [place], [place] [address]Performed By: #### 62444- 2 ####[facility] LABCLIA [id number] [place] [address] [place] AMERICAPlatelets (Bld) [#/Vol]266 10*3/vCBmfukt618-114FejlufijhSelect Medical Specialty [facility] on above:Order Comment: Specimen Type: BLOOD SPECIMENOrdering Facility: [facility] Address:[address] [place], [place] [address]Performed By: #### 04629-8 ####[facility] LABCL[facility] [id number] [address] [address] [place] [facility] H[facility]PITAL - CANTONRBC (Bld) [#/Vol]3.97 10*6/uLLow 4.20-6.00[facility] on above:Order Comment: Specimen Type: BLOOD SPECIMENOrdering Facility: [facility] Address:[address] [place], [place] [address]Performed By: #### 64414-0 ####[facility] [id number] [address] OF AMERICAWBC (Bld) [#/Vol]13.37 10*3/uLHigh3.70-11.00[facility] NorthComment on above:Order Comment: Specimen Type: BLOOD SPECIMENOrdering Facility: [facility] Address:[address] [place], [place] [address]Performed By: #### 56132-3 ####[facility] LABCLIA [id number] [address] OF AMERICATHERAPY NTon 38-27-3299HKANPED NTNormalCUC West Chester HospitalANES POSTPROC EVALon 23-72-3304IBGX POSTPROC EVALNormalCUC West Chester HospitalANES PRE-OPon 59-36-7533IVAV PRE-OPNormalSelect Medical Specialty Hospital - [facility] NorthBRIEF OP NOTon 15-03-7554UEHEF OP NOTNormJoint Township District Memorial HospitalOPERATIVE NOon 06-02-2024 OPERATIVE NONormalSelect Medical Specialty Hospital - [facility] NorthXR CERVICAL SPECIFY 1Von 06-02-2024 XR CERVICAL SPECIFY 1VNormalCUC West Chester HospitalXR VERIFY LEVEL C-SPINE-NB on 11-80-2567EU VERIFY LEVEL D-SPNTU-HSXmglipUibzkuntp Clinic ClevelandCT Cervical spine WO contraston 93-38-2479LRNPASKRLC: Developmental cervical canal stenosis with superimposed degenerative changes that are most prominent at C5-6 where there is severe cord compression. Multilevel bony foraminal narrowing as detailed above. Anatomic Variant: None. Assume 7 cervical vertebrae with counting from the craniocervical junction. Mental Health Advanced Practice Nurse: PSCB Transcribe Date/Time: May 16 2024 7:44A Dictated by : DOMENIC FORD MD This examination was interpreted and the report reviewed and electronically signed by: DOMENIC FORD MD on May 16 2024 7:54AM [facility] SYNGO* * *Final Report* * * DATE OF EXAM: May 14 2024 9:37AM [facility] 0505 - CT CERVICAL SPINE WO IVCON [...] Counting reference: Craniocervical junction. Anatomic Variants: None. Tour Conductor (topogram) images: No additional findings. Alignment: There [...] degenerative changes cause mild bilateral foraminal stenosis. [facility] RADIOLOG[facility] SYNGOProvider, [facility] [place] - 05/16/2024 * * *Final Report* * * DATE OF EXAM: May 14 2024 9:37AM [facility] 0505 - CT CERVICAL SPINE WO IVCON [...] Counting reference: Craniocervical junction. Anatomic Variants: None. Tour Conductor (topogram) images: No additional findings. Alignment: There [...] vertebrae with counting from the craniocervical junction. Mental Health Advanced Practice Nurse: PSCB Transcribe Date/Time: May 16 2024 7:44A Dictated by : DOMENIC FORD MD This examination was interpreted and the report reviewed and electronically signed by: DOMENIC FORD MD on May 16 2024 7:54AM EST [facility] Cervical spine WO contrastOrdered By: Ccf Provider on 23-20-6833Rmnvtdgoh ClinicCT CERVICAL SPINE WO IVCONon 98-63-6308FO CERVICAL SPINE WO IVCON* * *Final Report* * * DATE OF EXAM: May 14 2024 9:37AM [facility] 0505 - CT CERVICAL SPINE WO IVCON [...] Counting reference: Craniocervical junction. Anatomic Variants: None. Tour Conductor (topogram) images: No additional findings. Alignment: There [...] vertebrae with counting from the craniocervical junction. Mental Health Advanced Practice Nurse: [facility] Transcribe Date/Time: May 16 2024 7:44A Dictated by : DOMENIC FORD MD This examination was interpreted and the report reviewed and electronically signed by: DOMENIC FORD MD on May 16 2024 7:54AM EST [id number] Regional HospitalCT Cervical spine WO contraston 23-06-5853Ztatlksjf Study observation (narrative)[facility] Basic metabolic 2000 panelon 79-55-5461Morhy gap [Moles/Vol]11 mmol/L8 - 15 mmol/LCleveland ClinicCalcium [Mass/Vol]9.8 mg/dL8.5 - 10.2 mg/dLRegency Hospital ToledoChloride [Moles/Vol]99 mmol/L98 - 107 mmol/LCleveland ClinicCO2 [Moles/Vol]28 mmol/L22 - 30 mmol/LCleveland ClinicCreatinine [Mass/Vol]0.91 mg/dL0.73 - 1.22 mg/dLRegency Hospital ToledoGFR/1.73 sq M.predicted among non-blacks MDRD (S/P/Bld) [Vol rate/Area]92 mL/min/{1.73_m2}- PINFCTrinity Health SystemComment on above:Estimated Glomerular Filtration Rate (eGFR) is calculated using the 2020 CKD-EPI creatinine equation. This equation utilizes serum creatinine, sex, and age as parameters. The creatinine assay has traceable calibration to isotope dilution-mass spectrometry. Refer to KDIGO guidelines for clinical inte rpretation. In patients with unstable renal function, e.g. those with acute kidney injury, the eGFRmay not accurately reflect actual GFR.Glucose [Mass/Vol] 120 mg/tJSunl65 - 99 mg/dLKettering Memorial Hospital on above:The [place] Diabetes Association (ADA) provides guidance for cutoff [...] Standards of Medical Care in Diabetes 2016, [place] Diabetes Association. Diabetes Care. 2016.39(Suppl 1). Interpretation and review of laboratory resultsAbnormalCleveland ClinicPotassium [Moles/Vol]4.4 mmol/L3.7 - 5.1 mmol/LCleveland ClinicSodium [Moles/Vol]138 mmol/L136 - 144 mmol/LCleveland ClinicUrea nitrogen [Mass/Vol]23 mg/dL9 - 24 mg/dLFlower HospitalAnion gap [Moles/Vol]11 mmol/LNormal8-15 [facility] on above:Order Comment: Specimen Type: BLOOD SPECIMENOrdering Facility: [facility] Address:[address] [place], [place] [address]Performed By: #### 99349-5, 50925-9, 2275-06 ####[facility] LABCLIA [id number] [address] [place] AMERICACalcium [Mass/Vol]9.8 mg/dLNormal8.5-10.2CG[facility] on above:Order Comment: Specimen Type: BLOOD SPECIMENOrdering Facility: [facility] Address:[address] [place], [place] [address]Performed By: #### 88164-3, 99553-5, 2275-06 ####[facility] LABCLIA [id number] VIL[place] [address] [place] AMERICAChloride [Moles/Vol]99 mmol/JLzaozv21-669PvcswggliSelect Medical [facility]ty [facility] on above:Order Comment: Specimen Type: BLOOD SPECIMENOrdering Facility: [facility] Address:[address] [place], [place] [address]Performed By: #### 03743-9, 48447-9, 2275-06 ####[facility] LABCLIA [id number][place] [address] [place] AMERICACO2 [Moles/Vol]28 mmol/PTtuhal23-18FyjvtumgzSelect [facility] on above:Order Comment: Specimen Type: BLOOD SPECIMENOrdering Facility: [facility] Address:[address] [place], [place] [address]Performed By: #### 65085-3, 70897-4, 2275-06 ####[facility] LABCLIA [id number] VILLE [address] [place] AMERICACreatinine [Mass/Vol]0.91 mg/dLNormal0.73-1.22 [facility] on above:Order Comment: Specimen Type: BLOOD SPECIMENOrdering Facility: [facility] Address:[address] [place], [place] [address]Performed By: #### 80475-5, 76621-6, 6-4 ####[facility] [id number][place] [address] [place] AMERICACreatinine and Glomerular filtration rate.predicted panel (S/P/Bld)92 mL/min/1.73m???Normal>=60[facility] on above:Order Comment: Specimen Type: BLOOD SPECIMENOrdering Facility: [facility] Address:[address] [place], [place] [address]Result Comment: Estimated Glomerular Filtration Rate (eGFR) is calculated using the 2020 CKD-EPI creatinine equation. This equation utilizes serum creatinine, sex, and age as parameters. The creatinine assay has traceable calibration to isotope dilution-mass spectrometry. Refer to KDIGO guidelines for clinical interpretation. In patients with unstable renal function, e.g. those with acute kidney injury, the eGFR may not accurately reflect actual GFR. Performed By: #### 47329-8, 12399-0, 6-4 ####[facility] LABROCKINGHAM MEM[facility]IAL [facility] [id number] VILLE [address] [place] AMERICAGlucose [Mass/Vol]120 mg/kKEppy19-70PsrbruclgSelect Medical [facility]ty [facility] on above:Order Comment: Specimen Type: BLOOD SPECIMENOrdering Facility: [facility] Address:[address] [place], [place] [address]Result Comment: The [place] Diabetes Association (ADA) provides guidance for cutoff [...] unequivocal hyperglycemia, results should be confirmed by repeattesting. In a patient with classic symptoms of hyperglycemia or hyperglycemic crisis, random plasmaglucose results greater than or equal to 200 mg/dL meet the criteria for diagnosis of diabetes.Reference: Standards of Medical Care in Diabetes 2016, [place] Diabetes [employer]. Diabetes Care. 2016.39(Suppl 1).Performed By: #### 20237-7, 70673-7, 6-4 ####[facility] [id number] [address] [place] AMERICAPotassium [Moles/Vol]4.4 mmol/LNormal3.7-5.1 [facility] on above:Order Comment: Specimen Type: BLOOD SPECIMENOrdering Facility: [facility] Address:[address] [place], [place] [address]Performed By: #### 58643-3, 74086-9, 2275- ####[facility] LABROCKINGHAM MEMORIAL [facility]OSPITAL [id number] VILLE [address] [place] [facility] HOSPITALSodium [Moles/Vol]138 mmol/UCzjkcb573-917TutofbgltSelect [facility] on above:Order Comment: Specimen Type: BLOOD SPECIMENOrdering Facility: [facility] Address:[address] [place], [place] [address]Performed By: #### 54843-6, 05698-5, 2275-06 ####[facility] [id number] VIL[place] [address] [place] OF [facility] - CANTONUrea nitrogen [Mass/Vol]23 mg/dLNormal9-24 [facility] on above:Order Comment: Specimen Type: BLOOD SPECIMENOrdering Facility: [facility] Address:[address] [place], [place] [address]Performed By: #### 33355-1, 97959-2, 2275-06 ####[facility] [id number] [address] [facility] W Auto Differential panel (Bld)on 05-12-2024 Basophils (Bld) [#/Vol]0.03 10*3/uLNormal<0.11[facility] on above:Order Comment: Specimen Type: BLOOD SPECIMENOrdering Facility: [facility] Address:[address] [place] [address] Performed By: #### 83253-5 ####[facility] LABCLIA [id number] [address], [place] [address] [place] Basophils/100 WBC (Bld)0.3 %NormalSelect Medical Specialty [facility] on above: Order Comment: Specimen Type: BLOOD SPECIMENOrdering Facility: [facility] Address:[address] [place], [place] [address]Performed By: #### 09542- 8 ####[facility] LABCLIA [id number] [address], [place] [address] [place] AMERICADifferential cell count method Nom (Bld)AutoNormalCGreen Cross Hospital on above:Order Comment: Specimen Type: BLOOD SPECIMENOrdering Facility: [facility] Address:[address] [place], [place] [address]Performed By: #### 00023-5 ####[facility] LABCLIA [id number] [place] [address] [place] AMERICAEosinophils (Bld) [#/Vol]10*3/uL Normal<0.46[facility] on above:Order Comment: Specimen Type: BLOOD SPECIMENOrdering Facility: [facility] Address:[address] [place], [place] [address]Performed By: #### 98139-6 ####[facility] LABCL[facility] [id number] [place] [address] [place] [facility] - CANTONEosinophils/100 WBC (Bld)0.1 %NormalSelect Medical Specialty [facility] on above:Order Comment: Specimen Type: BLOOD SPECIMENOrdering Facility: [facility] Address:[address] [place], [place] [address]Performed By: #### 35471-3 ####[facility] LABCL[facility] [id number] [place] [address] [place] Erythrocyte distribution width (RBC) [Ratio]12.4 %Bhhgut02.5-15.0[facility] on above:Order Comment: Specimen Type: BLOOD SPECIMENOrdering Facility: [facility] Address:[address] [place], [place] [address]Performed By: #### 03004-9 ####[facility] [id number] [place] [address] [place] AMERICAHematocrit (Bld) [Volume fraction]45.6 %Thdogm29.0-51.0[facility] on above:Order Comment: Specimen Type: BLOOD SPECIMENOrdering Facility: [facility] Address:[address] [place], [place] [address]Performed By: #### 57521-1 ####[facility] [id number] [place] [address] [place] Hemoglobin (Bld) [Mass/Vol]14.9 g/jJJhbusq26.0-17.0[facility] Comment on above:Order Comment: Specimen Type: BLOOD SPECIMENOrdering Facility: [facility] Address:[address] [place] [address] Performed By: #### 08683-0 ####[facility]ITALIA [id number] [place] [address] [place] Immature granulocytes (Bld) [#/Vol]0.11 10*3/uLHigh<0.10[facility] on above:Order Comment: Specimen Type: BLOOD SPECIMENOrdering Facility: [facility] [facility] Address:[address] [place], [place] [address]Performed By: #### 08227-0 ####[facility] LABIA [id number] [place] [address] [place] Immature granulocytes/100 WBC (Bld)1.3 %NormalSelect [facility]ty [facility] on above:Order Comment: Specimen Type: BLOOD SPECIMENOrdering Facility: [facility] Address:[address] [place] [address] Performed By: #### 05360-9 ####[facility] LABCLIA [id number] [address], [place] [address] [place] Lymphocytes (Bld) [#/Vol]0.83 10*3/uLLow1.00-4.00[facility] Comment on above:Order Comment: Specimen Type: BLOOD SPECIMENOrdering Facility: [facility] Address:[address] [place] [address] Performed By: #### 75283-4 ####[facility] LABCLIA [id number] [address], [address] [place] Lymphocytes/100 WBC (Bld)9.5 %NormalSelect Medical Specialty Hospital [facility] on above: Order Comment: Specimen Type: BLOOD SPECIMENOrdering Facility: [facility] Address:[address] [place], [place] [address]Performed By: #### 61849- 8 ####[facility] [id number] [address] (RBC) [Entitic mass]31.0 pg Tyvubj13.0-34.0[facility] NorthComment on above:Order Comment: Specimen Type: BLOOD SPECIMENOrdering Facility: [facility] Address:[address] [place], [place] [address]Performed By: #### 92494-1 ####[facility] [id number] [place] [address] [facility] (RBC) [Mass/Vol]32.7 g/dL Qxicgf89.5-36.0[facility] on above:Order Comment: Specimen Type: BLOOD SPECIMENOrdering Facility: [facility] Address:[address] [place], [place] [address]Performed By: #### 77256-3 ####[facility] [id number] [place] [address] [facility] (RBC) [Entitic vol]94.8 fL Qjrfaq60.0-100.0[facility] on above:Order Comment: Specimen Type: BLOOD SPECIMENOrdering Facility: [facility] Address:[address] [place], [place] [address]Performed By: #### 09453-0 ####[facility] LABCLIA [id number] [address] [address] [place] AMERICAMonocytes (Bld) [#/Vol]0.26 10*3/uLNormal<0.87[facility] on above:Order Comment: Specimen Type: BLOOD SPECIMENOrdering Facility: [facility] Address:[address] [place], [place] [address]Performed By: #### 83577-7 ####[facility] LABCLIA [id number] [place] [address] [place] AMERICAMonocytes/100 WBC (Bld)3.0 % NormalSelect Medical Specialty [facility] on above:Order Comment: Specimen Type: BLOOD SPECIMENOrdering Facility: [facility] Address:[address] [place], [place] [address]Performed By: #### 73189-8 ####[facility] LABCLIA [id number] [place] [address] [place] AMERICANeutrophils (Bld) [#/Vol]7.47 10*3/uLNormal1.45-7.50[facility] on above:Order Comment: Specimen Type: BLOOD SPECIMENOrdering Facility: [facility] Address:[address] [place], [place] [address]Performed By: #### 93716-3 ####[facility] LABCLIA [id number] [place] [address] [place] AMERICANeutrophils/100 WBC (Bld)85.8 %NormalSelect Medical Specialty [facility] on above:Order Comment: Specimen Type: BLOOD SPECIMENOrdering Facility: [facility] Address:[address] [place] [address] Performed By: #### 67994-7 ####[facility] LABCLIA [id number] [place] [address] [place] Nucleated RBC (Bld) [#/Vol]10*3/uLNormal<0.01[facility] on above:Order Comment: Specimen Type: BLOOD SPECIMENOrdering Facility: [facility] Address:[address] [place] [address] Performed By: #### 98515-5 ####[facility] LABCLIA [id number] [place] [address] [place] Nucleated RBC/100 WBC (Bld) [Ratio]0.0 /100 WBCNormalCUC [facility] Comment on above:Order Comment: Specimen Type: BLOOD SPECIMENOrdering Facility: [facility] Address:[address] [place] [address] Performed By: #### 83511-1 ####[facility] [id number] [place] [address] [place] Platelet mean volume (Bld) [Entitic vol]10.0 fLNormal9.0-12.7CGreen [facility] on above:Order Comment: Specimen Type: BLOOD SPECIMENOrdering Facility: [facility] Address:[address] [place], [place] [address]Performed By: #### 85851-2 ####[facility] [id number] [place] [address] [place] Platelets (Bld) [#/Vol]394 10*3/iNLdsarh863-652NvokrxkewSelect Medical Specialty [facility] on above:Order Comment: Specimen Type: BLOOD SPECIMENOrdering Facility: [facility] Address:[address] [place] [address] Performed By: #### 67371-6 ####[facility] [id number] [place] [address] [place] RBC (Bld) [#/Vol]4.81 10*6/uLNormal4.20-6.00[facility] on above:Order Comment: Specimen Type: BLOOD SPECIMENOrdering Facility: [facility] Address:[address] [place], [place] [address]Performed By: #### 90379-8 ####[facility] LABCLIA [id number] [address]ETWBC (Bld) [#/Vol]8.71 10*3/uLNormal3.70-11.00[facility] on above:Order Comment: Specimen Type: BLOOD SPECIMENOrdering Facility: [facility] Address:[address] [place], [place] [address]Performed By: #### 71860-4 ####[facility] [id number] [address] STATES OF [facility] - CANTONCNOVon 75-71-7879HENHTtlefq [facility] NorthFerritin SerPl-mCncon 23-38-5065Qjfaletr [Mass/Vol] 204.0 ng/gRDbbwjx59.3-565.7CGreen [facility] on above:Order Comment: Specimen Type: BLOOD SPECIMENOrdering Facility: [facility] Address:[address] [place], [place] [address]Performed By: #### 61777- 8, 82309-6, 2276-4 ####[facility] LABCLIA [id number] [address] STATES OF [facility] - CANTONHISTORY PHYSICALon 52-27-2025AONKSSM PHYSICALNormalCUC West Chester HospitalIron and Iron binding capacity panelon 10-98-0350Xnnf [Mass/Vol]81 ug/xVXtddcc70-780TbrvhgzduSelect Medical Specialty [facility] on above:Order Comment: Specimen Type: BLOOD SPECIMENOrdering Facility: [facility] Address:[address] [place], [place] [address]Performed By: #### 08896-7, 79140-0, 2275-06 ####[facility] LABCLIA [id number] VILLE [address] [place] AMERICAIron binding capacity [Mass/Vol]342 ug/yEIszhys849-022YkiqsncteSelect Medical Specialty [facility] on above:Order Comment: Specimen Type: BLOOD SPECIMENOrdering Facility: [facility] Address:[address] [place], [place] [address]Performed By: #### 86277-6, 14396-1, 2275-06 ####[facility] [id number] VILLE [address] [place] AMERICAIron/TIBC [Molar ratio]23.7 %Bjgvvc79.0-57.0 [facility] on above:Order Comment: Specimen Type: BLOOD SPECIMENOrdering Facility: [facility] Address:[address] [place], [place] [address]Performed By: #### 72112-3, 49428-9, 2275-06 ####[facility] [id number] VIL[place] [address] [place] AMERICASTAPHYLOCOCCUS AUREUS AND MRSA SCREEN, PCR, NASAL on 05-12-2024S. aureus and MRSA panel BARBARA+probe (Nose)Not detectedNormalNot DetectedSelect Medical Specialty [facility] on above:Order Comment: Specimen Type: SWABOrdering Facility: [facility] Address: [address] [place], [place] [address]Performed By: #### SAPCR ####[facility] [id number] [place] [address] [place] AMERICATYPE AND SCREEN,30 DAYon 51-28-7380PBS group Nom (Bld)OClevelMercy Health St. Anne Hospital Blood group antibody screen QlNegativeRegency Hospital ToledoRh Nom (Bld)Negative Flower HospitalABOONormalSelect [facility] on above:Order Comment: Specimen Type: BLOOD SPECIMENOrdering Facility: [facility] Address:[address] [place], [place] [address] [id number] By: #### [id number] ####[facility] BLOOD BANKCLIA [id number] [place] [id number] [place] AMERICARh Nom (Bld)NegativeNormal [facility] NorthComment on above:Order Comment: Specimen Type: BLOOD SPECIMENOrdering Facility: [facility] Address:[address] [place], [place] [address]Performed By: #### TSCR30 ####[facility] BLOOD BANKCLIA [id number] [address] STATES OF AMERICAMR Cervical spine WO contraston 83-44-6870CJWCBONCMK: Advanced multilevel degenerative canal stenoses, most pronounced [...] ALFONSO LOYD on 02/21/2024 5:11 PM via [employer] staff message. Mental Health Advanced Practice Nurse: PSCB Transcribe Date/Time: Feb 21 2024 4:44P Dictated by : KEVIN MASON MD This examination was interpreted and the report reviewed and electronically signed by: KEVIN MASON MD on Feb 21 2024 8:57PM [facility] DIVISION OF RADIOLOGY* * *Final Report* * * DATE OF [...] to uncovertebral and facet hypertrophy DIVISION OF RADIOLOGYProvider, [facility] - 02/21/2024 * * *Final Report* * [...] ALFONSO LOYD on 02/21/2024 5:11 PM via [employer] staff message. Mental Health Advanced Practice Nurse: PSCB Transcribe Date/Time: Feb 21 2024 4:44P Dictated by : KEVIN MASON MD This examination was interpreted and the report reviewed and electronically signed by: KEVIN MASON MD on Feb 21 2024 8:57PM [facility] HospitalRadiology Study observation (narrative)[facility] Hospital ToledoMR Cervical spine WO contrastOrdered By: Ccf Provider on 51-33-5178Jkqlbfohs Clinic MRI CERVICAL SPINE WO IVCONon 47-26-6098AMJ CERVICAL SPINE WO IVCONNormal [facility] NorthCNPNon 33-45-2535TUKDYmzgmdMivqcrxjr [facility] CNOVon 92-67-9605NZPKFwnjikZjdfhthnn Clinic ClevelandCT LUMBAR SPINE WO IVCONon 31-08-2202PX LUMBAR SPINE WO IVCONNormalMercy Health Lumbar spine WO contraston 96-89-0955SQBARQTHSN: Interval L4-5 right facetectomy. Stable additional prior postoperative changes as described. Healing fracture along L5 pedicle screws. 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 Anatomic Lumbar Variant: Transitional L5 vertebral body. L4-5 is considered the level of the iliac crest and there are 5 lumbar-type vertebrae. Mental Health Advanced Practice Nurse: CITLALLI Transcribe Date/Time: Jan 13 2024 9:06A Dictated by : MORGAN SANCHEZ MD This examination was interpreted and the report reviewed and electronically signed by: ADALBERTO MAYS MD on Jan 13 2024 11:37AM [facility] DIVISION OF RADIOLOGY* * *Final Report* * * DATE OF EXAM: Jan 13 2024 8:57AM [facility] 0[facility] - CT LUMBAR SPINE WO IVCON [...] vertebrae. Anatomic variant: Transitional L5 vertebral body. Tour Conductor (topogram) images: No additional findings. Alignment: There [...] wings are within normal limits. DIVISION OF RADIOLOGYProvider, [facility] - 01/13/2024 * * *Final Report* * * DATE OF EXAM: Jan 13 2024 8:57AM [facility] 0508 - CT LUMBAR SPINE WO IVCON [...] vertebrae. Anatomic variant: Transitional L5 vertebral body. Tour Conductor (topogram) images: No additional findings. Alignment: There [...] crest and there are 5 lumbar-type vertebrae. Mental Health Advanced Practice Nurse: PSCAdonis Transcribe Date/Time: Jan 13 2024 9:06A Dictated by : MORGAN SANCHEZ MD This examination was interpreted and the report reviewed and electronically signed by: ADALBERTO MAYS MD on Jan 13 2024 11:37AM EST [facility] Lumbar spine WO contrastOrdered By: Ccf Provider on 55-60-2951Acgtdnjcm ClinicEMG(NEURO/NI)on 95-10-1018Jtzkhkt can be seen in attached scanned documents. If you are a patient reviewing this test result, call the doctor who ordered the test with any questions. [facility] Lumbar spine WO contraston 01-13-2024* * *Final Report* * * DATE OF [...] tissues are normal in appearance. DIVISION OF RADIOLOGYProvider, [facility] - 01/13/2024 * * *Final Report* * [...] obtained if clinically judy (more content not included)...[facility] ToledoRadiology Study observation (narrative)[facility] Thoracic spine WO contraston 01-13-2024* * *Final Report* * * DATE OF [...] tissues are normal in appearance. DIVISION OF RADIOLOGYProvider, [facility] - 01/13/2024 * * *Final Report* * [...] obtained if clinically a (more content not included)...[facility] LUMBAR SPINE WO IVCONon 71-82-5014GAT LUMBAR SPINE WO IVCONInvalid Interpretation CodeAultman Hospital THORACIC SPINE WO IVCONon 30-51-2787PUW THORACIC SPINE WO IVCON Invalid Interpretation CodeMercy Health Clermont Hospital Panel InformationOrdered By: Ccf Provider on 71-81-1963Wxbehxzpmzbqjh and review of laboratory results AbnormalRegency Hospital ToledoRadiology ResultACTIONABLEAbnormalCTrinity Health System Comment on above:This report contains an incidental or actionable finding. [...] contact your provider for the next steps. [facility] Panel Informationon 32-63-2931GNHUMRIGTE: * Susceptibility artifacts from posterior fusion hardware [...] be communicated with the ordering provider via [employer]) staff message or phone message by [facility] within 2 business days of report finalization. --END OF FINDING-- ACTIONABLE RESULT: FOLLOW-UP Acuity: Actionable Findings: Neurological System-SPINE Routing Code: NI_2 Recommendation: Unlisted Recommendation (see report) Time Frame: At the discretion of the clinical team. COMMUNICATION: Results will be communicated with the ordering provider via [employer]) staff message or phone message by [facility] within 2 business days of report finalization. --END OF FINDING-- Mental Health Advanced Practice Nurse: CITLALLI Transcribe Date/Time: Jan 13 2024 8:57A Dictated by : TWAN SANTO MD This examination was interpreted and the report reviewed and electronically signed by: TWAN SANTO MD on Jan 13 2024 3:52PM [facility] DIVISION OF RADIOLOGYRadiology Study observation (narrative)[facility] Ambulatory Visit Summaryon 68-84-1604Htoprceuwl Visit SummaryAmbulatory Visit Summary BRADEN RODRIGUEZ :1955 Visit Date:12/16/2023 [...] you for choosing us for your care. [facility] HospitalGeneral Surgery Office/Clinic Noteon 09-39-2129Ebtlawl Surgery Office/Clinic NoteGeneral Surgery Office/Clinic Note Chief Complaint colonoscopy follow [...] swallowing difficulties, no hearing loss, no ear infection(s),no nose bleeds. Cardiovascular: normal blood pressure, no [...] Diverticulosis of large intestine without perforation or abscesswithout bleeding) high fiber diet and daily fiber [...] vaccine, live, trivalent - Not Given Patient RefusesNoBlanchard Valley Health System Bluffton HospitalComment on above:Result Comment: Electronically Signed By: VAMSI JERNIGAN, Camryn Baker\Date and Time Signed: 12/16/23 13:13 EDTCNPNon 12-05-2023 CNPNNormalAshtabula County Medical Center 65-30-6413YUartfebn: [id number] Received: 11/27/23 Status: SHIRAMax Thurman Num: [id number] Spec Type: Surgical Subm Dr: Camryn Agustin MD FACS Tissues: A Colon Biopsy (CECAL COLON POLYP) Procedures: HE/2, Gross/Micro L4 Age/ Patient Sex Location Account Attending Physician Braden Rodriguez 68/M LABELL [id number] Camryn Agustin MD FACS SPEC NUM: [id number] RECD: 11/27/23 STATUS: CASANDRA THURMAN NUM: [id number] KIM: 11/26/[address] [facility] [address]: Camryn Agustin MD FACS ENTERED: 11/27/[address] [facility] [address]: Javed,Lab SPEC TYPE: Surgical DEPT: ANI [facility]WILLIAMS ENTERED BY: [id number] RECV BY: [id number] ORDERED: HE/2, Gross/Micro L4 ORDERED: HE/2, Gross/Micro [...] cassette A1. CPT Codes 88 305 Specimen: [id number] Received: 11/27/23-1453 Status: CASANDRA Thurman Num: [id number] Spec Type: Surgical Subm Dr: Camryn Agustin MD FACS Tissues: A Colon Biopsy (CECAL COLON POLYP) Procedures: HE/2, Gross/Micro L4 Patient: Braden Rodriguez [id number] (Continued) Signed (signature on file) Edward Byers MD 12/02/[address] [place] [address] Physician GroupCNOVon 27-03-9835IUYUSptcqbLyjxghsvg Clinic ClevelandXR LUMBAR 2V AP/LATon 37-27-9594UF LUMBAR 2V AP/LATNormal [facility] NorthXR Lumbar spine AP and Lateralon 06-62-9038MRKGAXBAOC: Intact spinal fusion hardware. Vertebral body heights and sagittal alignment are maintained. Mental Health Advanced Practice Nurse: [facility] Transcribe Date/Time: Nov 12 2023 1:25P Dictated by : LONNIE HERNANDEZ MD This examination was interpreted and the report reviewed and electronically signed by: LONNIE HERNANDEZ MD on Nov 12 2023 1:25PM EST DIVISION OF RADIOLOGY* * *Final Report* * * DATE OF EXAM: Nov 12 2023 1:11PM JIX 5229 - XR LUMBAR 2V AP/LAT / PROCEDURE REASON: multiple diagnoses * * * * Physician Interpretation * * * * EXAMINATION / TECHNIQUE: XR LUMBAR 2V AP/LAT HISTORY: post op follow up History of laminectomy Degenerative scoliosis in adult patient COMPARISON: 09/10/2023. RESULT: See impression DIVISION OF RADIOLOGYProvider, [facility] - 11/12/2023 * * *Final Report* * [...] body heights and sagittal alignment are maintained. Mental Health Advanced Practice Nurse: [facility] Transcribe Date/Time: Nov 12 2023 1:25P Dictated by : LONNIE HERNANDEZ MD This examination was interpreted and the report reviewed and electronically signed by: LONNIE HERNANDEZ MD on Nov 12 2023 1:25PM EST [facility] ToledoRadiology Study observation (narrative)[facility] ToledoXR Lumbar spine AP and LateralOrdered By: [facility] Provider on 01-87-8164Gwlwvwqfi ClinicCNPNon 99-65-3567XUALVzzzodJntojkvjp Clinic ClevelandCNPNon 19-46-6757LERDStqdcc [facility] NorthCNCOon 33-99-2503KKNSDysqgc TextNormalCUC West [facility] HospitalBasaint elizabeth edgewood metabolic 2000 panelon 41-33-2677Ryteh gap [Moles/Vol]10 mmol/L Normal8-15[facility] NorthComment on above:Order Comment: Specimen Type: BLOOD SPECIMENOrdering Facility: [facility] Address:[address] [place], [place] [address]Performed By: #### 88064-2 ####[facility] LABCLIA [id number] [place] [address] [place] AMERICACalcium [Mass/Vol]9.4 mg/dLNormal8.5-10.2CGreen Cross Hospital on above:Order Comment: Specimen Type: BLOOD SPECIMENOrdering Facility: [facility] Address:[address] [place], [place] [address]Performed By: #### 93846-2 ####[facility] LABCLIA [id number] [place] [address] [place] AMERICAChloride [Moles/Vol]104 mmol/YAjjvjj29-322IknorzxgrSelect Medical Specialty Hospital [facility] Comment on above:Order Comment: Specimen Type: BLOOD SPECIMENOrdering Facility: [facility] Address:[address] [place] [address] Performed By: #### 73350-4 ####[facility] LABCLIA [id number] [place] [address] [place] CO2 [Moles/Vol]27 mmol/FXmwqot47-46GawblkrmnSelect Medical Specialty [facility] on above: Order Comment: Specimen Type: BLOOD SPECIMENOrdering Facility: [facility] Address:[address] [place], [place] [address]Performed By: #### 28943- 2 ####[facility] LABIA [id number] [place] [address] [place] AMERICACreatinine [Mass/Vol]0.83 mg/dL Normal0.73-1.22[facility] NorthComsheridan community hospital on above:Order Comment: Specimen Type: BLOOD SPECIMENOrdering Facility: [facility] Address:[address] [place], [place] [address]Performed By: #### 97081-4 ####[facility] LABIA [id number] [place] [address] [place] AMERICACreatinine and Glomerular filtration rate.predicted panel (S/P/Bld)97 mL/min/1.73m???Normal>=60Genesis Hospitalment on above:Order Comment: Specimen Type: BLOOD SPECIMENOrdering Facility: [facility] Address:[address] [place] [id number] Comment: Estimated Glomerular Filtration Rate (eGFR) is calculated using the 2020 CKD-EPI creatinine equation. This equation utilizes serum creatinine, sex, and age as parameters. The creatinine assay has traceable calibration to isotope dilution-mass spectrometry. Refer to KDIGO guidelines for clinical interpretation. In patients with unstable renal function, e.g. those with acute kidney injury, the eGFR may not accurately reflect actual GFR.Performed By: #### 77488-3 ####[facility] LABIA [id number] [place] [id number] [place] AMERICAGlucose [Mass/Vol]100 mg/bMNhbx62-96GmzqvclieSelect Medical Specialty [facility] on above:Order Comment: Specimen Type: BLOOD SPECIMENOrdering Facility: [facility] Address:[address] [place], [place] [address]Result Comment: The [place] Diabetes Association (ADA) provides guidance for cutoff [...] unequivocal hyperglycemia, results should be confirmed by repeattesting. In a patient with classic symptoms of hyperglycemia or hyperglycemic crisis, random plasmaglucose results greater than or equal to 200 mg/dL meet the criteria for diagnosis of diabetes.Reference: Standards of Medical Care in Diabetes 2016, [place] [employer]. Diabetes Care. 2016.39(Suppl 1).Performed By: #### 63545-3 ####[facility] LABIA [id number] [place] [id number] [place] AMERICAPotassium [Moles/Vol]3.9 mmol/LNormal3.7-5.1[facility] Comment on above:Order Comment: Specimen Type: BLOOD SPECIMENOrdering Facility: [facility] Address:[address] [place] [id number] Performed By: #### 63967-3 ####[facility] LABCLIA [id number] [place] [address] [place] Sodium [Moles/Vol]141 mmol/YHcudlu699-165EknomzqiiSelect Medical Specialty Hospital [facility] on above:Order Comment: Specimen Type: BLOOD SPECIMENOrdering Facility: [facility] Address:[address] [place], [place] [address]Performed By: #### 80233-5 ####[facility] LABIA [id number] [place] [address] [place] AMERICAUrea nitrogen [Mass/Vol]15 mg/dLNormal9-24[facility] on above:Order Comment: Specimen Type: BLOOD SPECIMENOrdering Facility: [facility] Address:[address] [place], [place] [address]Performed By: #### 21466- 2 ####[facility] LABIA [id number] [place] [address] [place] AMERICACBC panel Auto (Bld)on 10-04-2023 Erythrocyte distribution width (RBC) [Ratio]12.4 %Vnjuje56.5-15.0[facility] on above:Order Comment: Specimen Type: BLOOD SPECIMENOrdering Facility: [facility] Address:[address] [place], [place] [address]Performed By: #### 64479-2 ####[facility] LABIA [id number] [place] [id number] [place] OF AMERICAHematocrit (Bld) [Volume fraction]37.6 %Low39.0-51.0[facility] on above:Order Comment: Specimen Type: BLOOD SPECIMENOrdering Facility: [facility] Address:[address] [place], [place] [address]Performed By: #### 49839-8 ####[facility] [id number] [place] [address] [place] Hemoglobin (Bld) [Mass/Vol]12.1 g/dLLow13.0-17.0[facility] Comment on above:Order Comment: Specimen Type: BLOOD SPECIMENOrdering Facility: [facility] Address:[address] [place] [address] Performed By: #### 70439-8 ####[facility] [id number] [place] [address] [place] MCH (RBC) [Entitic mass]32.5 nzQkxkas66.0-34.0[facility] Hospitalment on above:Order Comment: Specimen Type: BLOOD SPECIMENOrdering Facility: [facility] Address:[address] [place] [address] Performed By: #### 97093-5 ####[facility] [id number] [place] [address] [place] MCHC (RBC) [Mass/Vol]32.2 g/aQZvfgjj31.5-36.0[facility] Hospitalment on above:Order Comment: Specimen Type: BLOOD SPECIMENOrdering Facility: [facility] Address:[address] [place] [address] Performed By: #### 74619-2 ####[facility] [id number] [place] [address] [place] MCV (RBC) [Entitic vol]101.1 fGQgsr06.0-100.0[facility] on above:Order Comment: Specimen Type: BLOOD SPECIMENOrdering Facility: [facility] Address:[address] [place] [address] Performed By: #### 63889-1 ####[facility] [id number] [place] [address] [place] Nucleated RBC (Bld) [#/Vol]10*3/uLNormal<0.01[facility] on above:Order Comment: Specimen Type: BLOOD SPECIMENOrdering Facility: [facility] Address:[address] [place] [address] Performed By: #### 97401-6 ####[facility] LABCLIA [id number] [place] [address] [place] Platelet mean volume (Bld) [Entitic vol]10.1 fLNormal9.0-12.7[facility] on above:Order Comment: Specimen Type: BLOOD SPECIMENOrdering Facility: [facility] Address:[address] [place], [place] [address]Performed By: #### 77997-2 ####[facility] LABCLIA [id number] [place] [address] [place] Platelets (Bld) [#/Vol]352 10*3/fJHtojbg468-584AnaiwdyyfSelect [facility] on above:Order Comment: Specimen Type: BLOOD SPECIMENOrdering Facility: [facility] Address:[address] [place] [address] Performed By: #### 65539-2 ####[facility] [id number] [place] [address] [place] RBC (Bld) [#/Vol]3.72 10*6/uLLow4.20-6.00[facility] on above:Order Comment: Specimen Type: BLOOD SPECIMENOrdering Facility: [facility] Address:[address] [place], [place] [address]Performed By: #### 83363-9 ####[facility] LABCLIA [id number] [place] [address] [place] AMERICAWBC (Bld) [#/Vol]10.84 10*3/uLNormal3.70-11.00[facility] on above:Order Comment: Specimen Type: BLOOD SPECIMENOrdering Facility: [facility] Address:[address] [place], [place] [address]Performed By: #### 81893- 2 ####[facility] LABCLIA [id number] [address] [address] [place] OF AMERICATHERAPY NTon 18-62-6009BYWNEDY NT NormalSelect Medical Specialty Hospital - [facility] NorthBasaint elizabeth edgewood metabolic 2000 panelon 86-19-7833Drmbt gap [Moles/Vol]10 mmol/LNormal8-15[facility] on above:Order Comment: Specimen Type: BLOOD SPECIMENOrdering Facility: [facility] Address:[address] [place], [place] [address]Performed By: #### 69214- 2 ####[facility] LABCLIA [id number] [place] [address] [place] AMERICACalcium [Mass/Vol]9.0 mg/dLNormal 8.5-10.2[facility] on above:Order Comment: Specimen Type: BLOOD SPECIMENOrdering Facility: [facility] Address:[address] [place], [place] [address]Performed By: #### 30509-9 ####[facility] LABCLIA [id number] [place] [address] [place] AMERICAChloride [Moles/Vol]105 mmol/LEkmhjk20-006WggvwfenySelect [facility] on above:Order Comment: Specimen Type: BLOOD SPECIMENOrdering Facility: [facility] Address:[address] [place], [place] [address]Performed By: #### 05741-0 ####[facility] LABCLIA [id number] [address] [address] [place] AMERICACO2 [Moles/Vol]23 mmol/RDhipdn19-73XwwhyungnSelect [facility] on above:Order Comment: Specimen Type: BLOOD SPECIMENOrdering Facility: [facility] Address:[address] [place], [place] [address]Performed By: #### 81072-5 ####[facility] LABCLIA [id number] [place] [address] [place] AMERICACreatinine [Mass/Vol] 0.92 mg/dLNormal0.73-1.22[facility] on above:Order Comment: Specimen Type: BLOOD SPECIMENOrdering Facility: [facility] Address:[address] [place], [place] [address]Performed By: #### 56216- 2 ####[facility] [id number] [place] [address] [place] AMERICACreatinine and Glomerular filtration rate.predicted panel (S/P/Bld)92 mL/min/1.73m???Normal>=60[facility] on above:Order Comment: Specimen Type: BLOOD SPECIMENOrdering Facility: [facility] Address:[address] [place], [place] [address]Result Comment: Estimated Glomerular Filtration Rate (eGFR) is calculated using the 2020 CKD-EPI creatinine equation. This equation utilizes serum creatinine, sex, and age as parameters. The creatinine assay has traceable calibration to isotope dilution-mass spectrometry. Refer to KDIGO guidelines for clinical interpretation. In patients with unstable renal function, e.g. those with acute kidney injury, the eGFR may not accurately reflect actual GFR.Performed By: #### 63812-0 ####[facility] LABCLIA [id number] [place] [address] [place] AMERICAGlucose [Mass/Vol]121 mg/nYRplt96-73SvbmxarwaSelect Medical [facility] on above:Order Comment: Specimen Type: BLOOD SPECIMENOrdering Facility: [facility] Address:[address] [place], [place] [address]Result Comment: The [place] Diabetes [employer] (ADA) provides guidance for cutoff [...] unequivocal hyperglycemia, results should be confirmed by repeattesting. In a patient with classic symptoms of hyperglycemia or hyperglycemic crisis, random plasmaglucose results greater than or equal to 200 mg/dL meet the criteria for diagnosis of diabetes.Reference: Standards of Medical Care in Diabetes 2016, [place] [employer]. Diabetes Care. 2016.39(Suppl 1).Performed By: #### 89508-9 ####[facility] LABCLIA [id number] [place] [address] [place] AMERICAPotassium [Moles/Vol]4.0 mmol/LNormal3.7-5.1[facility] Comment on above:Order Comment: Specimen Type: BLOOD SPECIMENOrdering Facility: [facility] Address:[address] [place] [address] Performed By: #### 47509-6 ####[facility] [id number] [place] [address] [place] Sodium [Moles/Vol]138 mmol/ABumpyy328-420FfhongtxdSelect Medical Specialty Hospital - [facility] NorthComment on above:Order Comment: Specimen Type: BLOOD SPECIMENOrdering Facility: [facility] Address:[address] [place], [place] [address]Performed By: #### 22178-6 ####[facility] [id number] [place] [address] [place] [facility] - CANTONUrea nitrogen [Mass/Vol]21 mg/dLNormal9-24[facility] NorthComment on above:Order Comment: Specimen Type: BLOOD SPECIMENOrdering Facility: [facility] Address:[address] [place], [place] [address]Performed By: #### 21235- 2 ####[facility] [id number] [place] [address] [place] AMERICACASE MGT INIT ASSESon 10-03-2023 CASE MGT INIT ASSESNormalCUC West Chester HospitalCB panel Auto (Bld)on 11-72-7106Rfjqrczqapu distribution width (RBC) [Ratio]11.9 %Wbulip34.5-15.0 [facility] on above:Order Comment: Specimen Type: BLOOD SPECIMENOrdering Facility: [facility] Address:[address] [place], [place] [address]Performed By: #### 61499-3 ####[facility] [id number] [place] [address] [place] AMERICAHematocrit (Bld) [Volume fraction]35.0 %Low39.0-51.0[facility] on above:Order Comment: Specimen Type: BLOOD SPECIMENOrdering Facility: [facility] Address:[address] [place], [place] [address]Performed By: #### 93652-7 ####[facility] [id number] [place] [address] [place] Hemoglobin (Bld) [Mass/Vol]11.5 g/dLLow13.0-17.0[facility] Comment on above:Order Comment: Specimen Type: BLOOD SPECIMENOrdering Facility: [facility] Address:[address] [place] [address] Performed By: #### 63630-5 ####[facility] [id number] [place] [address] [place] MCH (RBC) [Entitic mass]32.0 iaLintdt34.0-34.0[facility] on above:Order Comment: Specimen Type: BLOOD SPECIMENOrdering Facility: [facility] Address:[address] [place] [address] Performed By: #### 90502-0 ####[facility] [id number] [place] [address] [place] MCHC (RBC) [Mass/Vol]32.9 g/oUIoevsy48.5-36.0[facility] on above:Order Comment: Specimen Type: BLOOD SPECIMENOrdering Facility: [facility] Address:[address] [place] [address] Performed By: #### 49633-8 ####[facility] [id number] [place] [address] [place] MCV (RBC) [Entitic vol]97.5 cARsodel22.0-100.0[facility] on above:Order Comment: Specimen Type: BLOOD SPECIMENOrdering Facility: [facility] Address:[address] [place] [address] Performed By: #### 54110-2 ####[facility] [id number] [place] [address] [place] Nucleated RBC (Bld) [#/Vol]10*3/uLNormal<0.01[facility] on above:Order Comment: Specimen Type: BLOOD SPECIMENOrdering Facility: [facility] Address:[address] [place] [address] Performed By: #### 74552-8 ####[facility] [id number] [place] [address] [place] Platelet mean volume (Bld) [Entitic vol]10.4 fLNormal9.0-12.7[facility] on above:Order Comment: Specimen Type: BLOOD SPECIMENOrdering Facility: [facility] Address:[address] [place], [place] [address]Performed By: #### 48471-7 ####[facility] [id number] [place] [address] [place] Platelets (Bld) [#/Vol]354 10*3/iKHhmatk564-103VgrltzpmqSelect [facility] on above:Order Comment: Specimen Type: BLOOD SPECIMENOrdering Facility: [facility] Address:[address] [place] [address] Performed By: #### 86381-2 ####[facility] [id number] [place] [address] [place] RBC (Bld) [#/Vol]3.59 10*6/uLLow4.20-6.00[facility] on above:Order Comment: Specimen Type: BLOOD SPECIMENOrdering Facility: [facility] Address:[address] [place], [place] [address]Performed By: #### 97390-9 ####[facility] LABCLIA [id number] [place] [address] [place] AMERICAWBC (Bld) [#/Vol]11.20 10*3/uLHigh3.70-11.00[facility] on above:Order Comment: Specimen Type: BLOOD SPECIMENOrdering Facility: [facility] Address:[address] [place], [place] [address]Performed By: #### 03527-7 ####[facility] LABCLIA [id number] [place] [address] [place] AMERICACNDSon 15-94-5908DXBJHcfmql [facility] NorthTHERAPY NTon 45-55-1658HQDILRC NTNormalCthe surgical hospital at southwoodsand [facility] CenterTHERAPY NTNormalCSalem [facility] POSTPROC EVALon 21-23-0396IXXO POSTPROC EVALNormalCthe surgical hospital at southwoodsand [facility] PRE-OPon 09-90-0514AGBH PRE-OPNormalSelect [facility] NorthBRIEF OP NOTon 10-02-2023 BRIEF OP NOTNormalCthe surgical hospital at southwoodsand [facility] Medical CenterOPERATIVE NOon 62-63-4715SKEZVVJRU NONormalSelect [facility] NorthTYPE + SCREENon 31-34-0053VWAKZlajyaHhxstrvsr [facility] on above:Order Comment: Specimen Type: BLOOD SPECIMENOrdering Facility: [facility] Address:[address] [place], [place] [address]Performed By: #### TSCR ####[facility] BLOOD BANKCLIA [id number] [place] [address] [place] AMERICAHISTORICAL AB SCR STATUSNegativeNormalCleveland Clinic ClevelandComment on above:Order Comment: Specimen Type: BLOOD SPECIMENOrdering Facility: [facility] Address:[address] [place] [address] Performed By: #### TSCR ####[facility] BLOOD BANKCLIA [id number] [address] [address] [place] AMERICARh Nom (Bld)Negative NormalSelect Medical Specialty Hospital - [facility] NorthComsheridan community hospital on above:Order Comment: Specimen Type: BLOOD SPECIMENOrdering Facility: [facility] Address:[address] [place], [place] [address]Performed By: #### TSCR ####[facility] BLOOD BANKCLIA [id number] [place] [address] [place] AMERICATYPE AND SCREEN WALXIQMVWX10/28/2024 23:59NormalCGreen Cross Hospital on above:Order Comment: Specimen Type: BLOOD SPECIMENOrdering Facility: [facility] Address:[address] [place], [place] [address]Performed By: #### TSCR ####CC [facility] BLOOD BANKCLIA [id number] [place] [id number] [place] AMERICAXR LUMBAR SPECIFY 1Von 51-73-8389SX LUMBAR SPECIFY 1VNormalCleveland [facility] CenterCNNURSEon 14-28-2496IFPIWJAYmihpyWfdgdzvuv [facility] Medical CenterCNPNon 03-65-5610FGAEPdrwqf [facility] NorthCNPNon 55-25-2353GPRWEymosyVkieijizr Clinic Cleveland CNPNon 11-62-9041NJRQZjktcpGvskxzhla Clinic ClevelandCNCOon 67-57-7714BIEVWwlzwb TextNormalCMemorial Health System HEALTHon 17-26-3874CRICBO HEALTH NormalSelect Medical Specialty Hospital - [facility] NorthBasi metabolic 2000 panelon 49-43-9808Yzyld gap [Moles/Vol]10 mmol/LNormal8-15[facility] NorthComsheridan community hospital on above:Order Comment: Specimen Type: BLOOD SPECIMENOrdering Facility: [facility] Address:[address] [place], [place] [address]Performed By: #### 22323- 2 ####[facility] LABCLIA [id number] [place] [address] [place] AMERICACalcium [Mass/Vol]9.6 mg/dLNormal 8.5-10.2CG[facility] on above:Order Comment: Specimen Type: BLOOD SPECIMENOrdering Facility: [facility] Address:[address] [place], [place] [address]Performed By: #### 54806-2 ####[facility] LABCLIA [id number] [place] [id number] [place] AMERICAChloride [Moles/Vol]102 mmol/NGofxjz78-639EakrersheSelect [facility] on above:Order Comment: Specimen Type: BLOOD SPECIMENOrdering Facility: [facility] Address:[address] [place], [place] [address]Performed By: #### 50741-0 ####[facility] LABCLIA [id number] [place] [address] [place] AMERICACO2 [Moles/Vol]27 mmol/KWbbghr20-34UwzscndsgSelect [facility] on above:Order Comment: Specimen Type: BLOOD SPECIMENOrdering Facility: [facility] Address:[address] [place], [place] [address]Performed By: #### 99306-3 ####[facility] LABCLIA [id number] [place] [address] [place] AMERICACreatinine [Mass/Vol] 0.88 mg/dLNormal0.73-1.22[facility] on above:Order Comment: Specimen Type: BLOOD SPECIMENOrdering Facility: [facility] Address:[address] [place], [place] [address]Performed By: #### 18748- 2 ####[facility] LABCLIA [id number] [place] [address] [place] AMERICACreatinine and Glomerular filtration rate.predicted panel (S/P/Bld)95 mL/min/1.73m???Normal>=60[facility] NorthComment on above:Order Comment: Specimen Type: BLOOD SPECIMENOrdering Facility: [facility] Address:[address] [place], [place] [address]Result Comment: Estimated Glomerular Filtration Rate (eGFR) is calculated using the 2020 CKD-EPI creatinine equation. This equation utilizes serum creatinine, sex, and age as parameters. The creatinine assay has traceable calibration to isotope dilution-mass spectrometry. Refer to KDIGO guidelines for clinical interpretation. In patients with unstable renal function, e.g. those with acute kidney injury, the eGFR may not accurately reflect actual GFR.Performed By: #### 07305-2 ####[facility] [id number] [place] [address] [place] AMERICAGlucose [Mass/Vol]82 mg/lCEccfbe36-66IwlasledhGenesis Hospitalment on above:Order Comment: Specimen Type: BLOOD SPECIMENOrdering Facility: [facility] Address:[address] [place], [place] [address]Result Comment: The [place] Diabetes [employer] (ADA) provides guidance for cutoff values for fasting glucose and random glucose. The ADA defines fasting as no caloric intake for at least 8 hours. Fasting plasma glucose results between 100 to 125 mg/dL indicate increased risk for diabetes (prediabetes).Fasting plasma glucose results greater than or equal to 126 mg/dL meet the criteria for diagno sis of diabetes. In the absence of unequivocal hyperglycemia, results should be confirmed by repeattesting. In a patient with classic symptoms of hyperglycemia or hyperglycemic crisis, random plasmaglucose results greater than or equal to 200 mg/dL meet the criteria for diagnosis of diabetes.Reference: Standards of Medical Care in Diabetes 2016, [place] [employer]. Diabetes Care. 2016.39(Suppl 1).Performed By: #### 67440-0 ####[facility] [id number] [place] [id number] [place] AMERICAPotassium [Moles/Vol]4.3 mmol/LNormal3.7-5.1[facility] Comment on above:Order Comment: Specimen Type: BLOOD SPECIMENOrdering Facility: [facility] Address:[address] [place] [address] Performed By: #### 88317-4 ####[facility] LABCLIA [id number] [place] [address] [place] Sodium [Moles/Vol]139 mmol/PSrpxts741-583TlmriyojaSelect Medical Specialty Hospital - [facility] NorthComment on above:Order Comment: Specimen Type: BLOOD SPECIMENOrdering Facility: [facility] Address:[address] [place], [place] [address]Performed By: #### 54070-7 ####[facility] LABCLIA [id number] [place] [address] [place] AMERICAUrea nitrogen [Mass/Vol]22 mg/dLNormal9-24[facility] NorthComment on above:Order Comment: Specimen Type: BLOOD SPECIMENOrdering Facility: [facility] Address:[address] [place], [place] [address]Performed By: #### 36296- 2 ####[facility] LABCLIA [id number] [place] [address] [place] AMERICACASE MANAGEMon 95-13-6098YZKN MANAGEMNClermont County HospitalCASE MANAGEMNormalRegency Hospital Toledo Cleselect medical specialty hospital - columbus southCNDSon 10-05-2133SQIZOwrlqoVmbsmmqts Clinic ClevelandMRI LUMBAR SPINE WO IVCONon 20-03-6770JEO LUMBAR SPINE WO IVCONNormalSelect [facility] THERAPY NTon 51-78-8328MQCYAGV NTNormalCUC [facility] HospitalCASE MANAGEMon 88-46-4450TOWB MANAGEMNClermont County HospitalMagnesium SerPl-mCncon 60-18-7589Kroouivlt [Mass/Vol]2.1 mg/dLNormal1.7-2.3ClevelNovant Health [facility] Comment on above:Order Comment: Specimen Type: BLOOD SPECIMENOrdering Facility: [facility] Address:[address] [place] [address] Performed By: #### 53557-6, 73486-5 ####[facility] LABCLIA [id number] [place] [address] [place] Renal function 2000 panelon 21-96-8938Nhkkyrr [Mass/Vol]3.9 g/dLNormal3.9-4.9 [facility] NorthComment on above:Order Comment: Specimen Type: BLOOD SPECIMENOrdering Facility: [facility] Address:[address] [place], [place] [address]Performed By: #### 62448-1, 89986-3 ####[facility] LABCLIA [id number] [place] [address] [place] AMERICAAnion gap [Moles/Vol]13 mmol/LNormal8-15[facility] on above:Order Comment: Specimen Type: BLOOD SPECIMENOrdering Facility: [facility] Address:[address] [place], [place] [address]Performed By: #### 18280-5, 54111-6 ####[facility]IA [id number] [place] [address] [place] AMERICACalcium [Mass/Vol]9.7 mg/dLNormal8.5-10.2[facility] Comment on above:Order Comment: Specimen Type: BLOOD SPECIMENOrdering Facility: [facility] Address:[address] [place] [address] Performed By: #### 94804-8, 03553-0 ####[facility]IA [id number] [place] [address] [place] Chloride [Moles/Vol]101 mmol/JIyzxvw37-599WmcnesdfuSelect [facility] on above:Order Comment: Specimen Type: BLOOD SPECIMENOrdering Facility: [facility] Address:[address] [place], [place] [address]Performed By: #### 27240-3, 89398-2 ####[facility] LABCLIA [id number] [place] [address] [place] AMERICACO2 [Moles/Vol]25 mmol/LYjroum61-08MieyzmthhSelect [facility] on above:Order Comment: Specimen Type: BLOOD SPECIMENOrdering Facility: [facility] Address:[address] [place], [place] [address]Performed By: #### 41154-1, 48462-5 ####[facility] LABCLIA [id number] [address] [address] [place] AMERICACreatinine [Mass/Vol]0.99 mg/dL Normal0.73-1.22[facility] Hospitalment on above:Order Comment: Specimen Type: BLOOD SPECIMENOrdering Facility: [facility] Address:[address] [place], [place] [address]Performed By: #### 55671-0, 76207-4 ####[facility] LABCLIA [id number] [place] [address] [place] AMERICACreatinine and Glomerular filtration rate.predicted panel (S/P/Bld)84 mL/min/1.73m???Normal>=60[facility] on above:Order Comment: Specimen Type: BLOOD SPECIMENOrdering Facility: [facility] Address:[address] [place], [place] [address]Result Comment: Estimated Glomerular Filtration Rate (eGFR) is calculated using the 2020 CKD-EPI creatinine equation. This equation utilizes serum creatinine, sex, and age as parameters. The creatinine assay has traceable calibration to isotope dilution-mass spectrometry. Refer to KDIGO guidelines for clinical interpretation. In patients with unstable renal function, e.g. those with acute kidney injury, the eGFR may not accurately reflect actual GFR.Performed By: #### 34614-2, 15708-4 ####[facility] LABCLIA [id number] [place] [id number] [place] AMERICAGlucose [Mass/Vol]123 mg/oXWrfy83-82HefkrxhycSelect [facility] Comment on above:Order Comment: Specimen Type: BLOOD SPECIMENOrdering Facility: [facility] Address:[address] [place], [place] [address]Result Comment: The [place] Diabetes Association (ADA) provides guidance for cutoff values for fasting glucose and random glucose. The ADA defines fasting as no caloric intake for at least 8 hours. Fasting plasma glucose results between 100 to 125 mg/dL indicate increased risk for diabetes (prediabetes).Fasting plasma glucose results greater than or equal to 126 mg/dL meet the criteria for diagno sis of diabetes. In the absence of unequivocal hyperglycemia, results should be confirmed by repeattesting. In a patient with classic symptoms of hyperglycemia or hyperglycemic crisis, random plasmaglucose results greater than or equal to 200 mg/dL meet the criteria for diagnosis of diabetes.Reference: Standards of Medical Care in Diabetes 2016, [place] [employer]. Diabetes Care. 2016.39(Suppl 1).Performed By: #### 69805-7, 04050-7 ####[facility] LABIA [id number] [place] [address] [place] AMERICAPhosphate [Mass/Vol]3.3 mg/dLNormal2.7-4.8[facility] HospitalComment on above:Order Comment: Specimen Type: BLOOD SPECIMENOrdering Facility: [facility] Address:[address] [place], [place] [address]Performed By: #### 87915-8, 65527-8 ####[facility] LABIA [id number] [place] [address] [place] AMERICAPotassium [Moles/Vol]4.4 mmol/LNormal3.7-5.1[facility] Comment on above:Order Comment: Specimen Type: BLOOD SPECIMENOrdering Facility: [facility] Address:[address] [place] [address] Performed By: #### 42113-2, 64547-6 ####[facility] LABIA [id number] [place] [address] [place] Sodium [Moles/Vol]139 mmol/VDonlbu886-666CoxuxwcidSelect Medical Specialty Hospital [facility] NorthComsheridan community hospital on above:Order Comment: Specimen Type: BLOOD SPECIMENOrdering Facility: [facility] Address:[address] [place], [place] [address]Performed By: #### 48006-8, 10648-8 ####[facility] LABCLIA [id number] [place] [address] [place] AMERICAUrea nitrogen [Mass/Vol]25 mg/dLHigh9-24[facility] on above:Order Comment: Specimen Type: BLOOD SPECIMENOrdering Facility: [facility] Address:[address] [place], [place] [address]Performed By: #### 59922- 9, 08449-1 ####[facility] LABCLIA [id number] [place] [facility] [place] [address] [place] AMERICATHERAPY NTon 09-09-2023 THERAPY NTNormalCleveland [facility] Medical CenterTHERAPY NTNormalCleveland [facility] CenterCASE MGT INIT ASSESon 71-70-5704DRUA MGT INIT ASSESrmalCthe surgical hospital at southwoodsand [facility] CenterED PROV NOTEon 74-00-2811DM PROV NOTENormalCleveland [facility] Medical CenterHISTORY PHYSICALon 82-83-4983OQKDMNE PHYSICALNormalCthe surgical hospital at southwoodsand [facility] CenterCB W Auto Differential panel (Bld)on 08-13-4503Ottxpursa (Bld) [#/Vol] 0.00 10*3/uLNormal<0.11[facility] on above:Order Comment: Specimen Type: BLOOD SPECIMENOrdering Facility: [facility] Address:[address] [place], [place] [address]Performed By: #### 07391-3, 4537-7 ####[facility] LABCL[facility] [id number] [place] [address] [place] AMERICABasophils/100 WBC (Bld)0.0 % NormalSelect [facility] on above:Order Comment: Specimen Type: BLOOD SPECIMENOrdering Facility: [facility] Address:[address] [place], [place] [address]Performed By: #### 52497-6, 4537-7 ####[facility] LABCLIA [id number] [place] [address] [place] AMERICADifferential cell count method Nom (Bld)ManualNormal Genesis Hospitalment on above:Order Comment: Specimen Type: BLOOD SPECIMENOrdering Facility: [facility] Address:[address] [place], [place] [address]Performed By: #### 90234-0, 4536-7 ####[facility]CLIA [id number] [place] [address] [place] AMERICAEosinophils (Bld) [#/Vol]0.00 10*3/uLNormal<0.46[facility] on above:Order Comment: Specimen Type: BLOOD SPECIMENOrdering Facility: [facility] Address:[address] [place], [place] [address]Performed By: #### 11036-4, 4536-7 ####[facility] LABCLIA [id number] [place] [address] [place] AMERICAEosinophils/100 WBC (Bld)0.0 %NormalSelect Medical Specialty [facility] Comment on above:Order Comment: Specimen Type: BLOOD SPECIMENOrdering Facility: [facility] Address:[address] [place] [address] Performed By: #### 59450-7, 7 ####[facility] LABCLIA [id number] [place] [address] [place] Erythrocyte distribution width (RBC) [Ratio]13.3 %Boebix86.5-15.0[facility] on above:Order Comment: Specimen Type: BLOOD SPECIMENOrdering Facility: [facility] Address:[address] [place], [place] [address]Performed By: #### 61060-8, 7 ####[facility] LABCLIA [id number] [place] [address] [place] AMERICAHematocrit (Bld) [Volume fraction]38.1 %Low39.0-51.0[facility] on above:Order Comment: Specimen Type: BLOOD SPECIMENOrdering Facility: [facility] Address:[address] [place], [place] [address]Performed By: #### 64078-4, 4537-7 ####[facility] LABCLIA [id number] [place] [address] [place] AMERICAHemoglobin (Bld) [Mass/Vol]12.5 g/dLLow13.0-17.0[facility] on above:Order Comment: Specimen Type: BLOOD SPECIMENOrdering Facility: [facility] Address:[address] [place], [place] [address]Performed By: #### 66250-1, 4537-7 ####[facility] LABCLIA [id number] [place] [address] [place] AMERICALymphocytes (Bld) [#/Vol]1.64 10*3/uLNormal1.00-4.00[facility] on above:Order Comment: Specimen Type: BLOOD SPECIMENOrdering Facility: [facility] Address:[address] [place], [place] [address]Performed By: #### 10731-7, 4536-7 ####[facility] LABCLIA [id number] [place] [address] [place] AMERICALymphocytes/100 WBC (Bld)12.2 %NormalSelect Medical Specialty [facility] Comment on above:Order Comment: Specimen Type: BLOOD SPECIMENOrdering Facility: [facility] Address:[address] [place] [address] Performed By: #### 81067-3, 4536-7 ####[facility] LABCLIA [id number] [place] [address] [place] MCH (RBC) [Entitic mass]32.6 odVtqkil35.0-34.0[facility] on above:Order Comment: Specimen Type: BLOOD SPECIMENOrdering Facility: [facility] Address:[address] [place] [address] Performed By: #### 25252-1, 4536-7 ####[facility] LABIA [id number] [place] [address] [place] MCHC (RBC) [Mass/Vol]32.8 g/rUXyqalv45.5-36.0[facility] on above:Order Comment: Specimen Type: BLOOD SPECIMENOrdering Facility: [facility] Address:[address] [place] [address] Performed By: #### 64535-1, 7 ####[facility] LABIA [id number] [place] [address] [place] MCV (RBC) [Entitic vol]99.2 uNTzqzdv21.0-100.0[facility] on above:Order Comment: Specimen Type: BLOOD SPECIMENOrdering Facility: [facility] Address:[address] [place] [address] Performed By: #### 50540-0, 7 ####[facility] LABIA [id number] [place] [address] [place] Monocytes (Bld) [#/Vol]1.40 10*3/uLHigh<0.87[facility] on above:Order Comment: Specimen Type: BLOOD SPECIMENOrdering Facility: [facility] Address:[address] [place], [place] [address]Performed By: #### 09152-7, 7 ####[facility] LABIA [id number] [place] [address] [place] AMERICAMonocytes/100 WBC (Bld)10.4 %NormalSelect Medical Specialty [facility] on above:Order Comment: Specimen Type: BLOOD SPECIMENOrdering Facility: [facility] Address:[address] [place], [place] [address]Performed By: #### 80228-8, 7 ####[facility] LABCLIA [id number] [place] [address] [place] AMERICANeutrophils (Bld) [#/Vol]10.39 10*3/uLHigh1.45-7.50[facility] on above:Order Comment: Specimen Type: BLOOD SPECIMENOrdering Facility: [facility] Address:[address] [place], [place] [address]Performed By: #### 00390-1, 7 ####[facility] LABIA [id number] [place] [address] [place] AMERICANeutrophils/100 WBC (Bld)77.4 % NormalSelect Medical Specialty [facility] on above:Order Comment: Specimen Type: BLOOD SPECIMENOrdering Facility: [facility] Address:[address] [place], [place] [address]Performed By: #### 73953-8, 7 ####[facility] LABIA [id number] [place] [address] [place] AMERICANucleated RBC (Bld) [#/Vol]10*3/uLNormal<0.01[facility] on above:Order Comment: Specimen Type: BLOOD SPECIMENOrdering Facility: [facility] Address:[address] [place], [place] [address]Performed By: #### 37397-4, 7 ####[facility] LABIA [id number] [place] [address] [place] AMERICANucleated RBC/100 WBC (Bld) [Ratio]0.0 /100 WBCNormalCGreen Cross Hospital on above:Order Comment: Specimen Type: BLOOD SPECIMENOrdering Facility: [facility] Address:[address] [place], [place] [address]Performed By: #### 47741-5, 4536-7 ####[facility] LABIA [id number] [place] [address] [place] AMERICAPlatelet mean volume (Bld) [Entitic vol]9.9 fLNormal9.0-12.7 [facility] NorthComment on above:Order Comment: Specimen Type: BLOOD SPECIMENOrdering Facility: [facility] Address:[address] [place], [place] [address]Performed By: #### 80256-3, 4537-7 ####[facility] LABCLIA [id number] [place] [address] [place] AMERICAPlatelets (Bld) [#/Vol]285 10*3/cAXlwrwy843-695LfsewkignSelect Medical [facility] on above:Order Comment: Specimen Type: BLOOD SPECIMENOrdering Facility: [facility] Address:[address] [place], [place] [address]Performed By: #### 23289-9, 4537-7 ####[facility] LABCLIA [id number] [place] [address] [place] AMERICAPlatelets Estimate (Bld) [#/Vol]AdequateNormalCUC [facility] Comment on above:Order Comment: Specimen Type: BLOOD SPECIMENOrdering Facility: [facility] Address:[address] [place] [address] Performed By: #### 05677-3, 4536-7 ####[facility] LABCLIA [id number] [place] [address] [place] RBC (Bld) [#/Vol]3.84 10*6/uLLow4.20-6.00[facility] on above:Order Comment: Specimen Type: BLOOD SPECIMENOrdering Facility: [facility] Address:[address] [place], [place] [address]Performed By: #### 45324-3, 7-7 ####[facility] LABCLIA [id number] [place] [address] [place] AMERICARED CELL MORPH Reviewed: unremarkableNormalCGreen Cross Hospital on above:Order Comment: Specimen Type: BLOOD SPECIMENOrdering Facility: [facility] Address:[address] [place], [place] [address]Performed By: #### 79500- 8, 4537-7 ####[facility] LABCLIA [id number] [facility] [place] [address] [place] AMERICAWBC (Bld) [#/Vol]13.43 10*3/uLHigh3.70-11.00[facility] on above:Order Comment: Specimen Type: BLOOD SPECIMENOrdering Facility: [facility] Address:[address] [place], [place] [address]Performed By: #### 43123-0, 4537-7 ####[facility] LABCLIA [id number] [place] [address] [place] AMERICACONSULTon 17-16-6090KYPSOSIPpqrzy [facility] NorthCRP SerPl-mCncon 81-74-5595TXK [Mass/Vol]mg/LNormal <0.9[facility] on above:Order Comment: Specimen Type: BLOOD SPECIMENOrdering Facility: [facility] Address:[address] [place], [place] [address]Performed By: #### 25668-6, 1987-07, , 30579-1 ####[facility] LABCLIA [id number] [place] [address] [place] AMERICACT LUMBAR SPINE WO IVCONon 76-90-7157BP LUMBAR SPINE WO IVCONNormalSelect Medical Specialty Hospital [facility] NorthComprehensive metabolic 2000 panelon 56-56-1474Vuzzjwd [Mass/Vol]4.0 g/dLNormal3.9-4.9 [facility] on above:Order Comment: Specimen Type: BLOOD SPECIMENOrdering Facility: [facility] Address:[address] [place], [place] [address]Performed By: #### 35423-0, 1987-07, , 94495-9 ####[facility] LABCLIA [id number] [address] [address] [place] AMERICAALP [Catalytic activity/Vol]136 U/TRkqb94-256XeeurywlbSelect Medical Specialty [facility] on above:Order Comment: Specimen Type: BLOOD SPECIMENOrdering Facility: [facility] Address:[address] [place], [place] [address]Performed By: #### 25772-8, 1987-07, , 59791-3 ####[facility] LABCLIA [id number] [address] [address] [place] AMERICAALT [Catalytic activity/Vol]20 U/LMslksi24-29FsjgnvdttSelect Medical [facility] on above:Order Comment: Specimen Type: BLOOD SPECIMENOrdering Facility: [facility] Address:[address] [place], [place] [address]Performed By: #### 37944- 8, 1987-07, , 35047-2 ####[facility] LABCLIA [id number] [address] [address] [place] AMERICAAnion gap [Moles/Vol]10 mmol/LNormal8-15[facility] on above: Order Comment: Specimen Type: BLOOD SPECIMENOrdering Facility: [facility] Address:[address] [place], [place] [address]Performed By: #### 34743- 8, 1987-07, , 51988-7 ####[facility] LABCLIA [id number] [address] [address] [place] AMERICAAST [Catalytic activity/Vol]19 U/UCmjrjs80-88SderwiaptSelect Medical Specialty [facility] on above:Order Comment: Specimen Type: BLOOD SPECIMENOrdering Facility: [facility] Address:[address] [place], [place] [address]Performed By: #### 09434-1, 1987-07, , 23884-1 ####[facility] LABCLIA [id number] [place] [address] [place] Bilirubin [Mass/Vol]0.6 mg/dLNormal0.2-1.3CG[facility] on above:Order Comment: Specimen Type: BLOOD SPECIMENOrdering Facility: [facility] Address:[address] [place], [place] [address]Performed By: #### 03668-8, 1987-07, , 75917-4 ####[facility] LABCLIA [id number] [place] [address] [place] Calcium [Mass/Vol]9.7 mg/dLNormal8.5-10.2CG[facility] on above:Order Comment: Specimen Type: BLOOD SPECIMENOrdering Facility: [facility] Address:[address] [place], [place] [address]Performed By: #### 70997-6, 1987-07, , 98109-6 ####[facility] LABCLIA [id number] [place] [address] [place] Chloride [Moles/Vol]105 mmol/OOparmf29-279StayiwjbwSelect Medical [facility] on above:Order Comment: Specimen Type: BLOOD SPECIMENOrdering Facility: [facility] Address:[address] [place], [place] [address]Performed By: #### 90643-8, 1987-07, , 39808-5 ####[facility] LABCLIA [id number] [place] [address] [place] CO2 [Moles/Vol]26 mmol/QVnfcgw74-77ZfuopqfewSelect [facility] on above: Order Comment: Specimen Type: BLOOD SPECIMENOrdering Facility: [facility] Address:[address] [place], [place] [address]Performed By: #### 84932- 8, 1987-07, , 46399-2 ####[facility] LABCLIA [id number] [address] [address] [place] Creatinine [Mass/Vol]0.93 mg/dLNormal0.73-1.22[facility] on above:Order Comment: Specimen Type: BLOOD SPECIMENOrdering Facility: [facility] Address:[address] [place] [id number] Performed By: #### 82090-6, 1987-07, , 92924-8 ####[facility] LABCLIA [id number] [place] [id number] [place] [facility]ONCreatinine and Glomerular filtration rate.predicted panel (S/P/Bld)91 mL/min/1.73m???Normal>=60[facility] on above: Order Comment: Specimen Type: BLOOD SPECIMENOrdering Facility: [facility] Address:[address] [place], [place] [address]Result Comment: Estimated Glomerular Filtration Rate (eGFR) is calculated using the 2020 CKD-EPI cre atinine equation. This equation utilizes serum creatinine, sex, and age as parameters. The creatinine assay has traceable calibration to isotope dilution- mass spectrometry. Refer to KDIGO guidelines for clinical interpretation. In patients with unstable renal function, e.g. those with acute kidney injury, the eGFR may not accurately reflect actual GFR.Performed By: #### 14885-0, 1987-07, , 34749-6 ####[facility] LABCLIA [id number] [place] [id number] [place] AMERICAGlucose [Mass/Vol]90 mg/gBFwijvh03-39IazoryveaSelect Medical Specialty [facility] on above:Order Comment: Specimen Type: BLOOD SPECIMENOrdering Facility: [facility] Address:[address] [place] [id number] Comment: The [place] Diabetes [employer] (ADA) provides guidance for cutoff [...] symptoms of hyperglycemia or hyperglycemic crisis, random plasmaglucose results greater than or equal to 200 mg/dL meet the criteria for diagnosis of diabetes.Reference: Standards of Medical Care in Diabetes 2016, [place] [employer]. Diabetes Care. 2016.39(Suppl 1). Performed By: #### 60496-9, 1987-07, , 23574-2 ####[facility] LABCLIA [id number] [place] [address] [place] AMERICAPotassium [Moles/Vol]3.8 mmol/LNormal3.7-5.1CG[facility] on above:Order Comment: Specimen Type: BLOOD SPECIMENOrdering Facility: [facility] Address:[address] [place], [place] [address]Performed By: #### 46138-5, , 39005-9 ####[facility] LABIA [id number] [place] [address] [place] AMERICAProtein [Mass/Vol]6.0 g/dLLow6.3-8.0[facility] on above:Order Comment: Specimen Type: BLOOD SPECIMENOrdering Facility: [facility] Address:[address] [place], [place] [address]Performed By: #### 00596-0, , 73239-6 ####[facility] LABIA [id number] [place] [address] [place] AMERICASodium [Moles/Vol]141 mmol/ZImttzn716-032IsgeylyqzSelect Medical [facility] on above:Order Comment: Specimen Type: BLOOD SPECIMENOrdering Facility: [facility] Address:[address] [place], [place] [address]Performed By: #### 42075-3, 1987-07, , 73460-3 ####[facility] LABCLIA [id number] [place] [address] [place] AMERICAUrea nitrogen [Mass/Vol]29 mg/dL High9-24[facility] on above:Order Comment: Specimen Type: BLOOD SPECIMENOrdering Facility: [facility] Address:[address] [place], [place] [address]Performed By: #### 15382-0, 1987-07, , 94137-2 ####[facility] LABIA [id number] [place] [address] [place] AMERICAESR Westergren method (Bld) [Velocity]on 19-68-5326JHA (Bld) [Velocity]5 mm/hNormal0-15[facility] on above:Order Comment: Specimen Type: BLOOD SPECIMENOrdering Facility: [facility] Address:[address] [place], [place] [address]Performed By: #### 82449-9, 4537-7 ####[facility] [id number] [place] [address] [place] AMERICAMagnesium SerPl-mCncon 23-42-6524Lvnyorccd [Mass/Vol]2.1 mg/dL Normal1.7-2.3CG[facility] on above:Order Comment: Specimen Type: BLOOD SPECIMENOrdering Facility: [facility] Address:[address] [place], [place] [address]Performed By: #### 31358-8, 1987-07, , 40733-8 ####[facility] [id number] [place] [address] [place] AMERICANT-proBNP SerPl-mCncon 61-48-5126Upoakrcyxrb peptide.B prohormone N-Terminal [Mass/Vol]153 pg/mLHigh <125[facility] on above:Order Comment: Specimen Type: BLOOD SPECIMENOrdering Facility: [facility] Address:[address] [place], [place] [address]Performed By: #### 87683-9, 1987-5, 00531-0, 48540-5 ####[facility] LABCLIA [id number] [place] [address] [place] AMERICAUS DVT LOWER BILon 18-66-3353NP DVT LOWER BILNormalCUC West Chester HospitalUrinalysis complete panel (U)on 41-90-9098Cnlvwazo LM.HPF (Urine sed) [#/Area]NegativeNormalNegativeSelect [facility] on above:Order Comment: Specimen Type: URINE SPECIMENOrdering Facility: [facility] Address:[address] [place], [place] [address]Performed By: #### 93605-4 ####[facility] LABCLIA [id number] [place] [address] [place] AMERICABilirubin Ql (U)NegativeNormalNegativeSelect [facility] on above:Order Comment: Specimen Type: URINE SPECIMENOrdering Facility: [facility] Address:[address] [place] [address] Performed By: #### 54649-9 ####[facility] LABCLIA [id number] [place] [address] [place] Clarity (Unsp spec)ClearNormalClearSelect Medical [facility] on above: Order Comment: Specimen Type: URINE SPECIMENOrdering Facility: [facility] Address:[address] [place], [place] [address]Performed By: #### 40580- 8 ####[facility] LABCLIA [id number] [place] [id number] [place] AMERICAColor (U)YellowNormalYellow [facility] on above:Order Comment: Specimen Type: URINE SPECIMENOrdering Facility: [facility] Address:[address] [place], [place] [address]Performed By: #### 76158-0 ####[facility] LABCLIA [id number] [address] STATES OF AMERICAEpithelial cells LM.HPF (Urine sed) [#/Area]None SeenNormalCGreen Cross Hospital on above:Order Comment: Specimen Type: URINE SPECIMENOrdering Facility: [facility] Address:[address] [place], [place] [address]Performed By: #### 63852-1 ####[facility] LABCLIA [id number] [place] [address] [place] AMERICAGlucose Test strip (U) [Mass/Vol]NegativeNormalNegativeSelect [facility] on above:Order Comment: Specimen Type: URINE SPECIMENOrdering Facility: [facility] Address:[address] [place], [place] [address]Performed By: #### 45886-4 ####[facility] LABCLIA [id number] [place] [address] [place] Hemoglobin Ql (U)NegativeNormalNegativeSelect Medical [facility] on above:Order Comment: Specimen Type: URINE SPECIMENOrdering Facility: [facility] Address:[address] [place], [place] [address]Performed By: #### 14289-8 ####[facility] LABCLIA [id number] [place] [address] [place] AMERICAHyaline casts (Urine sed) [#/Area]0 /[LPF]Normal0 /LPFCGreen Cross Hospital on above: Order Comment: Specimen Type: URINE SPECIMENOrdering Facility: [facility] Address:[address] [place], [place] [address]Performed By: #### 29247- 8 ####[facility] LABCLIA [id number] [place] [address] [place] AMERICAKetones Ql (U)NegativeNormal NegativeSelect Medical [facility] on above:Order Comment: Specimen Type: URINE SPECIMENOrdering Facility: [facility] Address:[address] [place], [place] [address]Performed By: #### 11020-0 ####[facility] LABCL[facility] [id number] [place] [address] [place] AMERICALeukocyte esterase Test strip Ql (U)NegativeNormal NegativeSelect Medical [facility] on above:Order Comment: Specimen Type: URINE SPECIMENOrdering Facility: [facility] Address:[address] [place], [place] [address]Performed By: #### 73874-4 ####[facility] LABCLIA [id number] [place] [address] [place] AMERICANitrite Ql (U)NegativeNormalNegativeSelect [facility] on above:Order Comment: Specimen Type: URINE SPECIMENOrdering Facility: [facility] Address:[address] [place], [place] [address]Performed By: #### 05722-9 ####[facility] LABIA [id number] [place] [address] [place] pH (U)7.0 [pH]Normal<8.5CGreen Cross Hospital on above:Order Comment: Specimen Type: URINE SPECIMENOrdering Facility: [facility] Address:[address] [place], [place] [address]Performed By: #### 49721- 8 ####[facility] LABIA [id number] [place] [address] [place] AMERICAProtein (U) [Mass/Vol]Negative NormalNegativeSelect [facility] on above:Order Comment: Specimen Type: URINE SPECIMENOrdering Facility: [facility] Address:[address] [place], [place] [address]Performed By: #### 96275-4 ####[facility] LABIA [id number] [place] [address] [place] [facility] - CANTONRBC LM.HPF (Urine sed) [#/Area]0-2 /HPFNormal0-2 /HPF [facility] on above:Order Comment: Specimen Type: URINE SPECIMENOrdering Facility: [facility] Address:[address] [place], [place] [address]Performed By: #### 87285-7 ####[facility] [id number] [place] [address] [place] AMERICASpecific gravity (U) [Rel density]1.854Ehyqlf3.005-1.030[facility] NorthComment on above:Order Comment: Specimen Type: URINE SPECIMENOrdering Facility: [facility] Address:[address] [place], [place] [address]Performed By: #### 23778-7 ####[facility] [id number] [place] [address] [place] Urobilinogen Ql (U)0.2 EU/dLNormal0.2-1.0 EU/dLSelect Medical [facility] on above:Order Comment: Specimen Type: URINE SPECIMENOrdering Facility: [facility] Address:[address] [place] [address] Performed By: #### 26516-0 ####[facility] [id number] [place] [address] [place] WBC LM.HPF (Urine sed) [#/Area]0-5 /HPFNormal0-5 /HPFSelect Medical [facility]ty [facility] Comment on above:Order Comment: Specimen Type: URINE SPECIMENOrdering Facility: [facility] Address:[address] [place] [address] Performed By: #### 94721-5 ####[facility] [id number] [place] [address] [place] XR LUMBAR 3V AP/LAT/L5-S1on 14-33-0679WI LUMBAR 3V AP/LAT/L5-H4AuwtaxVcngasphtUC West Chester HospitalCNon 25-63-9091PGFOWsfxueGimxsjcfh Clinic ClevelandCNPNon 22-83-5164YBNKYedxbiXigmjxhzo Clinic ClevelandCNCOon 76-32-2318KYMYBqqoql Text NormalSelect Medical Specialty Hospital - [facility] NorthBasaint elizabeth edgewood metabolic 2000 panelon 42-28-0435Vkmbp gap [Moles/Vol]9 mmol/LNormal8-15[facility] on above:Order Comment: Specimen Type: BLOOD SPECIMENOrdering Facility: [facility] Address:[address] [place], [place] [address]Performed By: #### 62667- 2 ####[facility] LABCLIA [id number] [place] [address] [place] AMERICACalcium [Mass/Vol]9.4 mg/dLNormal 8.5-10.2CGreen Cross Hospital on above:Order Comment: Specimen Type: BLOOD SPECIMENOrdering Facility: [facility] Address:[address] [place], [place] [address]Performed By: #### 74248-9 ####[facility] LABCLIA [id number] [place] [address] [place] AMERICAChloride [Moles/Vol]103 mmol/YRbkyza73-747XxdmupucsSelect Medical [facility] on above:Order Comment: Specimen Type: BLOOD SPECIMENOrdering Facility: [facility] Address:[address] [place], [place] [address]Performed By: #### 39084-1 ####[facility] LABCLIA [id number] [place] [address] [place] AMERICACO2 [Moles/Vol]26 mmol/RDktzwd44-12LkerxccpmSelect [facility] on above:Order Comment: Specimen Type: BLOOD SPECIMENOrdering Facility: [facility] Address:[address] [place], [place] [address]Performed By: #### 06421-8 ####[facility] LABCLIA [id number] [place] [id number] [place] AMERICACreatinine [Mass/Vol] 0.77 mg/dLNormal0.73-1.22[facility] on above:Order Comment: Specimen Type: BLOOD SPECIMENOrdering Facility: [facility] Address:[address] [place], [place] [address]Performed By: #### 35605- 2 ####[facility] LABIA [id number] [place] [address] [place] AMERICACreatinine and Glomerular filtration rate.predicted panel (S/P/Bld)99 mL/min/1.73m???Normal>=60[facility] on above:Order Comment: Specimen Type: BLOOD SPECIMENOrdering Facility: [facility] Address:[address] [place], [place] [address]Result Comment: Estimated Glomerular Filtration Rate (eGFR) is calculated using the 2020 CKD-EPI creatinine equation. This equation utilizes serum creatinine, sex, and age as parameters. The creatinine assay has traceable calibration to isotope dilution-mass spectrometry. Refer to KDIGO guidelines for clinical interpretation. In patients with unstable renal function, e.g. those with acute kidney injury, the eGFR may not accurately reflect actual GFR.Performed By: #### 02101-9 ####[facility] LABIA [id number] [place] [address] [place] AMERICAGlucose [Mass/Vol]112 mg/oYKbrg58-69PbmwilmqtSelect [facility] on above:Order Comment: Specimen Type: BLOOD SPECIMENOrdering Facility: [facility] Address:[address] [place], [place] [address]Result Comment: The [place] [employer] (ADA) provides guidance for cutoff [...] unequivocal hyperglycemia, results should be confirmed by repeattesting. In a patient with classic symptoms of hyperglycemia or hyperglycemic crisis, random plasmaglucose results greater than or equal to 200 mg/dL meet the criteria for diagnosis of diabetes.Reference: Standards of Medical Care in Diabetes 2016, [place] [employer]. Diabetes Care. 2016.39(Suppl 1).Performed By: #### 72141-6 ####[facility] LABCLIA [id number] [place] [address] [place] AMERICAPotassium [Moles/Vol]5.1 mmol/LNormal3.7-5.1[facility] Comment on above:Order Comment: Specimen Type: BLOOD SPECIMENOrdering Facility: [facility] Address:[address] [place] [address] Performed By: #### 29647-0 ####[facility] LABIA [id number] [place] [address] [place] Sodium [Moles/Vol]138 mmol/SAcdgud569-406XwrdyfbtkSelect Medical [facility] NorthComment on above:Order Comment: Specimen Type: BLOOD SPECIMENOrdering Facility: [facility] Address:[address] [place], [place] [address]Performed By: #### 17581-7 ####[facility] [id number] [place] [address] [place] [facility] - CANTONUrea nitrogen [Mass/Vol]16 mg/dLNormal9-24[facility] NorthComment on above:Order Comment: Specimen Type: BLOOD SPECIMENOrdering Facility: [facility] Address:[address] [place], [place] [address]Performed By: #### 90211- 2 ####[facility] [id number] [place] [id number] [place] [facility] - CANTONCBC panel Auto (Bld)on 08-22-2023 Erythrocyte distribution width (RBC) [Ratio]13.2 %Wodlui10.5-15.0[facility] NorthComsheridan community hospital on above:Order Comment: Specimen Type: BLOOD SPECIMENOrdering Facility: [facility] Address:[address] [place], [place] [address]Performed By: #### 50173-5 ####[facility] LABROCKING[facility] [id number] [address] [facility] - CANTONHematocrit (Bld) [Volume fraction]34.6 %Low39.0-51.0[facility] on above:Order Comment: Specimen Type: BLOOD SPECIMENOrdering Facility: [facility] Address:[address] [place], [place] [address]Performed By: #### 32271-1 ####[facility] LABIA [id number] [place] [address] [place] Hemoglobin (Bld) [Mass/Vol]11.6 g/dLLow13.0-17.0[facility] Comment on above:Order Comment: Specimen Type: BLOOD SPECIMENOrdering Facility: [facility] Address:[address] [place] [address] Performed By: #### 61543-7 ####[facility] LABIA [id number] [place] [address] [place] MCH (RBC) [Entitic mass]31.9 cbRgsdeq63.0-34.0[facility] on above:Order Comment: Specimen Type: BLOOD SPECIMENOrdering Facility: [facility] Address:[address] [place] [address] Performed By: #### 70474-1 ####[facility] LABIA [id number] [place] [address] [place] MCHC (RBC) [Mass/Vol]33.5 g/cLNcsmft32.5-36.0[facility] on above:Order Comment: Specimen Type: BLOOD SPECIMENOrdering Facility: [facility] Address:[address] [place] [address] Performed By: #### 56088-9 ####[facility] LABIA [id number] [place] [address] [place] MCV (RBC) [Entitic vol]95.1 vQPzvify83.0-100.0[facility] ClevelandComment on above:Order Comment: Specimen Type: BLOOD SPECIMENOrdering Facility: [facility] Address:[address] [place] [address] Performed By: #### 28770-3 ####[facility] LABIA [id number] [place] [address] [place] Nucleated RBC (Bld) [#/Vol]10*3/uLNormal<0.01[facility] on above:Order Comment: Specimen Type: BLOOD SPECIMENOrdering Facility: [facility] Address:[address] [place] [address] Performed By: #### 54555-1 ####[facility] LABIA [id number] [place] [address] [place] Platelet mean volume (Bld) [Entitic vol]9.7 fLNormal9.0-12.7CGreen [facility] on above:Order Comment: Specimen Type: BLOOD SPECIMENOrdering Facility: [facility] Address:[address] [place], [place] [address]Performed By: #### 37910-2 ####[facility] LABIA [id number] [place] [address] [place] Platelets (Bld) [#/Vol]393 10*3/oHFqavhu102-139DmcxnamcmSelect [facility] on above:Order Comment: Specimen Type: BLOOD SPECIMENOrdering Facility: [facility] Address:[address] [place] [address] Performed By: #### 11975-2 ####[facility] LABIA [id number] [place] [address] [place] RBC (Bld) [#/Vol]3.64 10*6/uLLow4.20-6.00[facility] on above:Order Comment: Specimen Type: BLOOD SPECIMENOrdering Facility: [facility] Address:[address] [place], [place] [address]Performed By: #### 31072-6 ####[facility] LABCLIA [id number] [place] [address] [place] AMERICAWBC (Bld) [#/Vol]17.35 10*3/uLHigh3.70-11.00[facility] on above:Order Comment: Specimen Type: BLOOD SPECIMENOrdering Facility: [facility] Address:[address] [place], [place] [address]Performed By: #### 06635-4 ####[facility] LABCLIA [id number] [place] [address] [place] AMERICACNDSon 78-55-0128ZSEMPdddzd [facility] NorthTHERAPY NTon 63-32-4306CGYRWIW NTNormalCUC [facility] HospitalBasic metabolic 2000 panelon 70-04-9467Zrfyo gap [Moles/Vol]10 mmol/LNormal8-15[facility] on above:Order Comment: Specimen Type: BLOOD SPECIMENOrdering Facility: [facility] Address:[address] [place], [place] [address]Performed By: #### 46379-1 ####[facility] LABCLIA [id number] [place] [address] [place] AMERICACalcium [Mass/Vol]9.5 mg/dLNormal 8.5-10.2CG[facility] on above:Order Comment: Specimen Type: BLOOD SPECIMENOrdering Facility: [facility] Address:[address] [place], [place] [address]Performed By: #### 33820-0 ####[facility] LABCLIA [id number] [place] [address] [place] AMERICAChloride [Moles/Vol]106 mmol/IRplshh21-942NqtpvrpkiSelect [facility] on above:Order Comment: Specimen Type: BLOOD SPECIMENOrdering Facility: [facility] Address:[address] [place], [place] [address]Performed By: #### 39086-8 ####[facility] LABIA [id number] [place] [address] [place] AMERICACO2 [Moles/Vol]22 mmol/JBnvqpx74-19KobmdkijcSelect [facility] on above:Order Comment: Specimen Type: BLOOD SPECIMENOrdering Facility: [facility] Address:[address] [place], [place] [address]Performed By: #### 67662-3 ####[facility] LABIA [id number] [place] [address] [place] AMERICACreatinine [Mass/Vol] 0.84 mg/dLNormal0.73-1.22[facility] on above:Order Comment: Specimen Type: BLOOD SPECIMENOrdering Facility: [facility] Address:[address] [place], [place] [address]Performed By: #### 24406- 2 ####[facility] [id number] [place] [address] [place] [facility] CANTONCreatinine and Glomerular filtration rate.predicted panel (S/P/Bld)96 mL/min/1.73m???Normal>=60[facility] on above:Order Comment: Specimen Type: BLOOD SPECIMENOrdering Facility: [facility] Address:[address] [place], [place] [address]Result Comment: Estimated Glomerular Filtration Rate (eGFR) is calculated using the 2020 CKD-EPI creatinine equation. This equation utilizes serum creatinine, sex, and age as parameters. The creatinine assay has traceable calibration to isotope dilution-mass spectrometry. Refer to KDIGO guidelines for clinical interpretation. In patients with unstable renal function, e.g. those with acute kidney injury, the eGFR may not accurately reflect actual GFR.Performed By: #### 01406-6 ####[facility] LABIA [id number] [place] [id number] [place] AMERICAGlucose [Mass/Vol]140 mg/zNOeca10-33DzmbilqlqSelect [facility] on above:Order Comment: Specimen Type: BLOOD SPECIMENOrdering Facility: [facility] Address:[address] [place], [place] [address]Result Comment: The [place] [employer] (ADA) provides guidance for cutoff [...] unequivocal hyperglycemia, results should be confirmed by repeattesting. In a patient with classic symptoms of hyperglycemia or hyperglycemic crisis, random plasmaglucose results greater than or equal to 200 mg/dL meet the criteria for diagnosis of diabetes.Reference: Standards of Medical Care in Diabetes 2016, [place] [employer]. Diabetes Care. 2016.39(Suppl 1).Performed By: #### 21488-3 ####[facility] LABCLIA [id number] [place] [address] [place] AMERICAPotassium [Moles/Vol]4.4 mmol/LNormal3.7-5.1[facility] Comment on above:Order Comment: Specimen Type: BLOOD SPECIMENOrdering Facility: [facility] Address:[address] [place], [place] [address] Performed By: #### 37561-7 ####[facility] LABCLIA [id number] [place] [address] [place] Sodium [Moles/Vol]138 mmol/QBclybk571-965TauykapyhSelect Medical Specialty Hospital - [facility] NorthComment on above:Order Comment: Specimen Type: BLOOD SPECIMENOrdering Facility: [facility] Address:[address] [place], [place] [address]Performed By: #### 03362-6 ####[facility] LABCLIA [id number] [place] [address] [place] AMERICAUrea nitrogen [Mass/Vol]14 mg/dLNormal9-24[facility] NorthComsheridan community hospital on above:Order Comment: Specimen Type: BLOOD SPECIMENOrdering Facility: [facility] Address:[address] [place], [place] [address]Performed By: #### 41790- 2 ####[facility] LABIA [id number] [place] [address] [place] AMERICACASE MANAGEMon 03-23-7482HGCT MANAGEMNormalSelect [facility] NorthCB panel Auto (Bld)on 08-21-2023 Erythrocyte distribution width (RBC) [Ratio]13.1 %Cxvnem29.5-15.0[facility] Hospitalment on above:Order Comment: Specimen Type: BLOOD SPECIMENOrdering Facility: [facility] Address:[address] [place], [place] [address]Performed By: #### 06631-5 ####[facility] LABIA [id number] [place] [address] [place] [facility] - CANTONHematocrit (Bld) [Volume fraction]34.2 %Low39.0-51.0[facility] on above:Order Comment: Specimen Type: BLOOD SPECIMENOrdering Facility: [facility] Address:[address] [place], [place] [address]Performed By: #### 36009-0 ####[facility] LABIA [id number] [place] [address] [place] Hemoglobin (Bld) [Mass/Vol]11.6 g/dLLow13.0-17.0[facility] Comment on above:Order Comment: Specimen Type: BLOOD SPECIMENOrdering Facility: [facility] Address:[address] [place] [address] Performed By: #### 18032-2 ####[facility] LABIA [id number] [place] [address] [place] MCH (RBC) [Entitic mass]31.7 ciRofvqa96.0-34.0[facility] on above:Order Comment: Specimen Type: BLOOD SPECIMENOrdering Facility: [facility] Address:[address] [place] [address] Performed By: #### 47630-4 ####[facility] LABIA [id number] [place] [address] [place] MCHC (RBC) [Mass/Vol]33.9 g/mKIfhrop15.5-36.0[facility] on above:Order Comment: Specimen Type: BLOOD SPECIMENOrdering Facility: [facility] Address:[address] [place] [address] Performed By: #### 64049-4 ####[facility] LABIA [id number] [place] [address] [place] MCV (RBC) [Entitic vol]93.4 vYCcylki14.0-100.0[facility] on above:Order Comment: Specimen Type: BLOOD SPECIMENOrdering Facility: [facility] Address:[address] [place] [address] Performed By: #### 97663-2 ####[facility] [id number] [place] [address] [place] Nucleated RBC (Bld) [#/Vol]10*3/uLNormal<0.01[facility] on above:Order Comment: Specimen Type: BLOOD SPECIMENOrdering Facility: [facility] Address:[address] [place] [address] Performed By: #### 04249-6 ####[facility] LABIA [id number] [place] [address] [place] Platelet mean volume (Bld) [Entitic vol]9.3 fLNormal9.0-12.7[facility] on above:Order Comment: Specimen Type: BLOOD SPECIMENOrdering Facility: [facility] [facility] Address:[address] [place], [place] [address]Performed By: #### 83569-5 ####[facility] [id number] [place] [address] [place] Platelets (Bld) [#/Vol]324 10*3/vGQkjylc172-970WcxywnlndSelect Medical Specialty Hospital - [facility] NorthComsheridan community hospital on above:Order Comment: Specimen Type: BLOOD SPECIMENOrdering Facility: [facility] Address:[address] [place] [address] Performed By: #### 46153-5 ####[facility] LABCLIA [id number] [place] [address] [place] RBC (Bld) [#/Vol]3.66 10*6/uLLow4.20-6.00[facility] NorthComment on above:Order Comment: Specimen Type: BLOOD SPECIMENOrdering Facility: [facility] Address:[address] [place], [place] [address]Performed By: #### 94508-7 ####[facility] LABCL[facility] [id number] [place] [address] [place] AMERICAWBC (Bld) [#/Vol]13.46 10*3/uLHigh3.70-11.00[facility] NorthComment on above:Order Comment: Specimen Type: BLOOD SPECIMENOrdering Facility: [facility] Address:[address] [place], [place] [address]Performed By: #### 03117-2 ####[facility] [id number] [place] [address] [place] AMERICATHERAPY NTon 60-78-5420NVRFYVX NT NormalSelect Medical Specialty Hospital - Cincinnati NorthTHERAPY NTNormalCthe surgical hospital at southwoodsand [facility] THERAPY NTNormalCleveland [facility] CenterXR LUMBAR 2V AP/LATon 01-90-7892OQ LUMBAR 2V AP/LATNormalCthe surgical hospital at southwoodsand [facility] CenterBasic metabolic 2000 panelon 77-35-7968Vcitw gap [Moles/Vol]11 mmol/LNormal8-15[facility] Comment on above:Order Comment: Specimen Type: BLOOD SPECIMENOrdering Facility: [facility] Address:[address] [place] [address] Performed By: #### 99575-7 ####[facility] LABCLIA [id number] [place] [address] [place] Calcium [Mass/Vol]9.3 mg/dLNormal8.5-10.2CG[facility] on above:Order Comment: Specimen Type: BLOOD SPECIMENOrdering Facility: [facility] Address:[address] [place], [place] [address]Performed By: #### 33031-5 ####[facility] LABCLIA [id number] [place] [address] [place] AMERICAChloride [Moles/Vol] 105 mmol/FVyfxtu71-752EsjagqqdeSelect Medical Special[facility] on above:Order Comment: Specimen Type: BLOOD SPECIMENOrdering Facility: [facility] Address:[address] [place], [place] [address]Performed By: #### 05132-6 ####[facility] [id number] [place] [address] [place] AMERICACO2 [Moles/Vol]24 mmol/LNormal 22-30[facility] on above:Order Comment: Specimen Type: BLOOD SPECIMENOrdering Facility: [facility] Address:[address] [place], [place] [address]Performed By: #### 58875-1 ####[facility] [id number] [place] [address] [place] AMERICACreatinine [Mass/Vol]0.86 mg/dLNormal0.73-1.22[facility] on above:Order Comment: Specimen Type: BLOOD SPECIMENOrdering Facility: [facility] Address:[address] [place], [place] [address]Performed By: #### 93248-7 ####[facility] [id number] [place] [address] [place] Creatinine and Glomerular filtration rate.predicted panel (S/P/Bld)95 mL/min/1.73m???Normal>=60[facility] on above:Order Comment: Specimen Type: BLOOD SPECIMENOrdering Facility: [facility] Address:[address] [place], [place] [address]Result Comment: Estimated Glomerular Filtration Rate (eGFR) is calculated using the 2020 CKD-EPI cre atinine equation. This equation utilizes serum creatinine, sex, and age as parameters. The creatinine assay has traceable calibration to isotope dilution- mass spectrometry. Refer to KDIGO guidelines for clinical interpretation. In patients with unstable renal function, e.g. those with acute kidney injury, the eGFR may not accurately reflect actual GFR.Performed By: #### 16740-2 ####[facility] [id number] [place] [id number] [place] AMERICAGlucose [Mass/Vol]111 mg/dLHigh 74-99[facility] on above:Order Comment: Specimen Type: BLOOD SPECIMENOrdering Facility: [facility] Address:[address] [place], [place] [address]Result Comment: The [place] Diabetes [employer] (ADA) provides guidance for cutoff [...] unequivocal hyperglycemia, results should be confirmed by repeattesting. In a patient with classic symptoms of hyperglycemia or hyperglycemic crisis, random plasmaglucose results greater than or equal to 200 mg/dL meet the criteria for diagnosis of diabetes.Reference: Standards of Medical Care in Diabetes 2016, [place] [employer]. Diabetes Care. 2016.39(Suppl 1).Performed By: #### 22343-2 ####[facility] [id number] [place] [id number] [place] AMERICAPotassium [Moles/Vol]4.0 mmol/L Normal3.7-5.1CGreen Cross Hospital on above:Order Comment: Specimen Type: BLOOD SPECIMENOrdering Facility: [facility] Address:[address] [place], [place] [address]Performed By: #### 12469-7 ####[facility] LABCLIA [id number] [place] [address] [place] [facility] CANTONSodium [Moles/Vol]140 mmol/TSrrzyh336-598SysxyfbujSelect Medical Specialty Hospital - [facility] NorthComment on above:Order Comment: Specimen Type: BLOOD SPECIMENOrdering Facility: [facility] Address:[address] [place], [place] [address]Performed By: #### 35078-8 ####[facility] LABCLIA [id number] [place] [address] [place] AMERICAUrea nitrogen [Mass/Vol]10 mg/dLNormal9-24[facility] Comment on above:Order Comment: Specimen Type: BLOOD SPECIMENOrdering Facility: [facility] Address:[address] [place] [address] Performed By: #### 14373-3 ####[facility]CL[facility] [id number] [place] [address] [place] CBC panel Auto (Bld)on 37-13-0409Udygxhxbtvg distribution width (RBC) [Ratio] 13.2 %Ayvryy80.5-15.0[facility] NorthComsheridan community hospital on above:Order Comment: Specimen Type: BLOOD SPECIMENOrdering Facility: [facility] Address:[address] [place], [place] [address]Performed By: #### 57384-6 ####[facility] LABCL[facility] [id number] [place] [address] [place] AMERICAHematocrit (Bld) [Volume fraction]39.0 %Vhevsr13.0-51.0[facility] on above:Order Comment: Specimen Type: BLOOD SPECIMENOrdering Facility: [facility] Address:[address] [place], [place] [address]Performed By: #### 83217- 2 ####[facility] LABCLIA [id number] [address]ETHemoglobin (Bld) [Mass/Vol]12.9 g/dLLow13.0-17.0[facility] on above:Order Comment: Specimen Type: BLOOD SPECIMENOrdering Facility: [facility] Address:[address] [place], [place] [address]Performed By: #### 58935-1 ####[facility] [id number] [address] (RBC) [Entitic mass]32.4 pg Anpxty49.0-34.0[facility] on above:Order Comment: Specimen Type: BLOOD SPECIMENOrdering Facility: [facility] Address:[address] [place], [place] [address]Performed By: #### 67248-9 ####[facility] [id number] [address]ETHC (RBC) [Mass/Vol]33.1 g/dL Muhpdb39.5-36.0[facility] on above:Order Comment: Specimen Type: BLOOD SPECIMENOrdering Facility: [facility] Address:[address] [place], [place] [address]Performed By: #### 13213-3 ####[facility] [id number] [address] STREETV (RBC) [Entitic vol]98.0 fL Dovstd89.0-100.0[facility] on above:Order Comment: Specimen Type: BLOOD SPECIMENOrdering Facility: [facility] Address:[address] [place], [place] [address]Performed By: #### 71778-2 ####[facility] LABROCKINGH[facility] [id number] [address]ucleated RBC (Bld) [#/Vol] 10*3/uLNormal<0.01[facility] on above:Order Comment: Specimen Type: BLOOD SPECIMENOrdering Facility: [facility] Address:[address] [place], [place] [address]Performed By: #### 90425-8 ####[facility] LABCLIA [id number] [place] [address] [place] AMERICAPlatelet mean volume (Bld) [Entitic vol]9.7 fLNormal9.0-12.7CGreen [facility] Hospital on above: Order Comment: Specimen Type: BLOOD SPECIMENOrdering Facility: [facility] Address:[address] [place], [place] [address]Performed By: #### 83611- 2 ####[facility] LABCLIA [id number] [place] [address] [place] AMERICAPlatelets (Bld) [#/Vol]389 10*3/aYRwxepj981-471ChxzpflcqSelect [facility] on above:Order Comment: Specimen Type: BLOOD SPECIMENOrdering Facility: [facility] Address:[address] [place], [place] [address]Performed By: #### 53817-8 ####[facility] LABCLIA [id number] [place] [address] [place] AMERICARBC (Bld) [#/Vol]3.98 10*6/uLLow 4.20-6.00[facility] on above:Order Comment: Specimen Type: BLOOD SPECIMENOrdering Facility: [facility] Address:[address] [place], [place] [address]Performed By: #### 84213-0 ####[facility] LABCLIA [id number] [place] [address] [place] AMERICAWBC (Bld) [#/Vol]11.15 10*3/uLHigh3.70-11.00[facility] on above:Order Comment: Specimen Type: BLOOD SPECIMENOrdering Facility: [facility] Address:[address] [place], [place] [address]Performed By: #### 92144-9 ####[facility] LABCLIA [id number] MADI PAYNE [id number] [place] [address] [place] AMERICACT LUMBAR SPINE WO IVCONon 39-94-6649QK LUMBAR SPINE WO IVCONNormal [facility] NorthMRI LUMBAR SPINE WO IVCONon 43-79-8363SZS LUMBAR SPINE WO IVCONNormalSelect Medical Specialty Hospital - [facility] NorthTHERAPY NTon 45-53-5734RDXZWFZ NTNormal [facility] NorthTHERAPY NTNormalCleveland [facility] CenterANES POSTPROC EVALon 72-06-9578ETGB POSTPROC EVALNormalCleveland [facility] CenterANES PRE-OPon 81-88-0850RWHY PRE-OPNormalSelect Medical Specialty Hospital - [facility] NorthBRIEF OP NOTon 66-60-3512PPJGR OP NOTNormalCleveland [facility] CenterNURSING PROGon 08-19-2023 NURSING PROGNormalSelect Medical Specialty Hospital - [facility] NorthNURSING PROGNormalSelect Medical Specialty Hospital [facility] NorthOPERATIVE NOon 12-33-2794MYGWPWHUL NONormalSelect Medical Specialty Hospital [facility] NorthXR LUMBAR 2V AP/LATon 37-26-6264MD LUMBAR 2V AP/LATNormalCleveland [facility] CenterXR LUMBAR 2V AP/LATNormalCleveland [facility] CenterXR LUMBAR 2V AP/LAT NormalSelect Medical Specialty Hospital - [facility] NorthCNPNon 35-37-1626WVBOTrtferCcxvukoxn Clinic ClevelandBasi metabolic 2000 panelon 89-88-2319Fdcqa gap [Moles/Vol]13 mmol/L9 - 18 mmol/LCleveland ClinicCalcium [Mass/Vol]9.2 mg/dL8.5 - 10.2 mg/dLRegency Hospital ToledoChloride [Moles/Vol]100 mmol/L97 - 105 mmol/LCleveland ClinicCO2 [Moles/Vol]24 mmol/L22 - 30 mmol/LCleveland ClinicCreatinine [Mass/Vol]1.00 mg/dL0.73 - 1.22 mg/dLRegency Hospital ToledoGFR/1.73 sq M.predicted among non-blacks MDRD (S/P/Bld) [Vol rate/Area]83 mL/min/{1.73_m2}- PINFCleveland North Memorial Health HospitalComment on above:Estimated Glomerular Filtration Rate (eGFR) is calculated using the 2020 CKD-EPI creatinine equation. This equation utilizes serum creatinine, sex, and age as parameters. The creatinine assay has traceable calibration to isotope dilution-mass spectrometry. Refer to KDIGO guidelines for clinical inte rpretation. In patients with unstable renal function, e.g. those with acute kidney injury, the eGFRmay not accurately reflect actual GFR.Glucose [Mass/Vol] 100 mg/vVWiks65 - 99 mg/dLRegency Hospital ToledoComment on above:The [place] Diabetes Association (ADA) provides guidance for cutoff [...] Standards of Medical Care in Diabetes 2016, [place] [employer]. Diabetes Care. 2016.39(Suppl 1). Interpretation and review of laboratory resultsAbnormalCleveland ClinicPotassium [Moles/Vol]4.1 mmol/L3.7 - 5.1 mmol/LCleveland ClinicSodium [Moles/Vol]137 mmol/L136 - 144 mmol/LCleveland ClinicUrea nitrogen [Mass/Vol]23 mg/dL9 - 24 mg/dLRegency Hospital ToledoAnion gap [Moles/Vol]13 mmol/LNormal9-18[facility] Comment on above:Order Comment: Specimen Type: BLOOD SPECIMEN Ordering Facility: [facility] Address: [address], [place], [place] [address]Ydkdoxlya By: #### 61492-2, 2276-4, 40264-6 #### [facility] CLIA [id number] [facility] [place] [address] [place] AMERICACalcium [Mass/Vol]9.2 mg/dLNormal8.5-10.2 [facility] HospitalComment on above:Order Comment: Specimen Type: BLOOD SPECIMEN Ordering Facility: [facility] Address: [address] [place], [place] [address]Performed By: #### 34788-4, 2276-4, 19064-9 #### [facility] CLIA [id number] [address] [place] [address] [place] AMERICAChloride [Moles/Vol]100 mmol/LNormal 97-105Av HospitalComment on above:Order Comment: Specimen Type: BLOOD SPECIMEN Ordering Facility: [facility] Address: [address] [place], [place] [address]Performed By: #### 94533-9, 6-4, 16061-9 #### [facility] CLIA [id number] [address] [place] [address] [place] AMERICACO2 [Moles/Vol]24 mmol/WNmfzhf41-58Gvyx HospitalComment on above:Order Comment: Specimen Type: BLOOD SPECIMEN Ordering Facility: [facility] Address: [address] [place], [place] [address]Performed By: #### 65632-4, 6-4, 93845-9 #### [facility] CLIA [id number] [address] [place] [address] [place] AMERICACreatinine [Mass/Vol]1.00 mg/dLNormal 0.73-1.22Av HospitalComment on above:Order Comment: Specimen Type: BLOOD SPECIMEN Ordering Facility: [facility] Address: [address] [place], [place] [address]Performed By: #### 90301-4, 6-4, 85413-6 #### [facility] CLIA [id number] [address] [place] [address] [place] AMERICACreatinine and Glomerular filtration rate.predicted panel (S/P/Bld)83 mL/min/1.73m???Normal>=60Av HospitalComment on above:Order Comment: Specimen Type: BLOOD SPECIMEN Ordering Facility: [facility] Address: [address] [place], [place] [address]Result Comment: Estimated Glomerular Filtration Rate (eGFR) is calculated using the 2020 CKD-EPI cre atinine equation. This equation utilizes serum creatinine, sex, and age as parameters. The creatinine assay has traceable calibration to isotope dilution- mass spectrometry. Refer to KDIGO guidelines for clinical interpretation. In patients with unstable renal function, e.g. those with acute kidney injury, the eGFR may not accurately reflect actual GFR.Performed By: #### 43945-8, 2276-4, 18499-1 #### [facility] CLIA [id number] [address] [place] [address] [place] AMERICAGlucose [Mass/Vol]100 mg/lUXoyj33-64Biyy HospitalComment on above:Order Comment: Specimen Type: BLOOD SPECIMEN Ordering Facility: [facility] Address: [address] [place], [place] [address]Cqrlek Comment: The [place] Diabetes Association (ADA) provides guidance for cutoff [...] Standards of Medical Care in Diabetes 2016, [place] [employer]. Diabetes Care. 2016.39(Suppl 1).Performed By: #### 02395-1, 2276-4, 11115-1 #### [facility] CLIA [id number] [address] [place] [address] [place] AMERICAPotassium [Moles/Vol]4.1 mmol/LNormal 3.7-5.1Avon HospitalComment on above:Order Comment: Specimen Type: BLOOD SPECIMEN Ordering Facility: [facility] Address: [address] [place], [place] [address]Iusxiduob By: #### 23977-9, 2276-4, 76516-2 #### [facility] CLIA [id number] [address] [place] [address] [place] AMERICASodium [Moles/Vol]137 mmol/RMhcjfy372-255 Willow HospitalComment on above:Order Comment: Specimen Type: BLOOD SPECIMEN [facility]ing Facility: [facility] Address: [address] [place], [place] [address]Performed By: #### 53713-7, 2276-4, 02318-3 #### [facility] IA [id number] [address] [place] [address] [place] AMERICAUrea nitrogen [Mass/Vol]23 mg/dLNormal 9-24Willow HospitalComment on above:Order Comment: Specimen Type: BLOOD SPECIMEN [facility]ing Facility: [facility] Address: [address] [place], [place] [address]Performed By: #### 32619-4, 2276-4, 56377-9 #### [facility] [place] [id number] [address] [place] [address] [place] [facility] - CANTONCB W Auto Differential panel (Bld)on 58-10-0422Kuibyhkep (Bld) [#/Vol]0.08 10*3/uLNormal<0.11Avon HospitalComment on above:Order Comment: Specimen Type: BLOOD SPECIMEN [facility]ing Facility[facility] Address: [address] [place], [place] [address]Performed By: #### 40412-1 #### [facility] IA [id number] [address] [place] [address] [place] AMERICABasophils/100 WBC (Bld)0.9 %NormalAv HospitalComment on above:Order Comment: Specimen Type: BLOOD SPECIMEN [facility]ing Facility[facility] Address: [address] [place], [place] [address]Performed By: #### 00659-5 #### [facility] IA [id number] [address] [place] [address] [place] AMERICADifferential cell count method Nom (Bld) AutoNormalAvon HospitalComment on above:Order Comment: Specimen Type: BLOOD SPECIMEN [facility]ing Facility[facility] Address: [address] [place], [place] [address]Performed By: #### 62988-8 #### [facility] IA [id number] [address] [place] [address] [place] AMERICAEosinophils (Bld) [#/Vol]0.43 10*3/uL Normal<0.46Av HospitalComment on above:Order Comment: Specimen Type: BLOOD SPECIMEN [facility]ing [facility] Address: [address] [place], [place] [address]Performed By: #### 71075-2 #### [facility] IA [id number] [place] [address] [place] AMERICAEosinophils/100 WBC (Bld)4.6 %NormalAv HospitalComment on above:Order Comment: Specimen Type: BLOOD SPECIMEN [facility]ing Facility: [facility] Address: [address] [place], [place] [address]Performed By: #### 53608-9 #### [facility] IA [id number] [place] [address] [place] AMERICAErythrocyte distribution width (RBC) [Ratio]12.7 %Pdhhei68.5-15.0Av HospitalComment on above:Order Comment: Specimen Type: BLOOD SPECIMEN [facility]ing Facility: [facility] Address: [address] [place], [place] [address]Performed By: #### 36220-0 #### [facility] IA [id number] [address] [place] [address] [place] AMERICAHematocrit (Bld) [Volume fraction]46.3 % Expsah95.0-51.0Av HospitalComment on above:Order Comment: Specimen Type: BLOOD SPECIMEN [facility]ing Facility: [facility] Address: [address] [place], [place] [address]Performed By: #### 23692-9 #### [facility] IA [id number] [address] [place] [address] [place] AMERICAHemoglobin (Bld) [Mass/Vol]15.1 g/dL Tdhgob59.0-17.0Av HospitalComment on above:Order Comment: Specimen Type: BLOOD SPECIMEN [facility]ing Facility: [facility] Address: [address] [place], [place] [address]Performed By: #### 27192-1 #### [facility] IA [id number] [address] [place] [address] [place] AMERICAImmature granulocytes (Bld) [#/Vol]0.21 10*3/uLHigh<0.10Avo HospitalComment on above:Order Comment: Specimen Type: BLOOD SPECIMEN [facility]ing Facility: [facility] Address: [address] [place], [place] [address]Performed By: #### 80662-1 #### [facility] IA [id number] [address] [place] [address] [place] AMERICAImmature granulocytes/100 WBC (Bld)2.3 % NormalWillow HospitalComment on above:Order Comment: Specimen Type: BLOOD SPECIMEN Ordering Facility: [facility] Address: [address] [place], [place] [address]Performed By: #### 39713-6 #### [facility] IA [id number] [address] [place] [address] [place] AMERICALymphocytes (Bld) [#/Vol]1.59 10*3/uL Normal1.00-4.00Av HospitalComment on above:Order Comment: Specimen Type: BLOOD SPECIMEN [facility]ing Facility: [facility] Address: [address] [place], [place] [address]Performed By: #### 53214-3 #### [facility] IA [id number] [address] [place] [address] [place] AMERICALymphocytes/100 WBC (Bld)17.2 %NormalWillow HospitalComment on above:Order Comment: Specimen Type: BLOOD SPECIMEN [facility]ing Facility: [facility] Address: [address] [place], [place] [address]Performed By: #### 21525-5 #### [facility] IA [id number] [address] [place] [address] [facility] (RBC) [Entitic mass]31.9 pgNormal 26.0-34.0Av HospitalComment on above:Order Comment: Specimen Type: BLOOD SPECIMEN [facility]ing Facility: [facility] Address: [address] [place], [place] [address]Performed By: #### 99957-9 #### [facility] IA [id number] [address] [place] [address] [facility] (RBC) [Mass/Vol]32.6 g/dLNormal 30.5-36.0Av HospitalComment on above:Order Comment: Specimen Type: BLOOD SPECIMEN [facility]ing Facility: [facility] Address: [address] [place], [place] [address]Performed By: #### 30803-7 #### [facility] IA [id number] [address] [place] [address] [facility] (RBC) [Entitic vol]97.9 fLNormal 80.0-100.0Av HospitalComment on above:Order Comment: Specimen Type: BLOOD SPECIMEN [facility]ing Facility: [facility] Address: [address] [place], [place] [address]Performed By: #### 97596-9 #### [facility] IA [id number] [address] [place] [address] [place] AMERICAMonocytes (Bld) [#/Vol]1.13 10*3/uLHigh <0.87Av HospitalComment on above:Order Comment: Specimen Type: BLOOD SPECIMEN Ordering Facility: [facility] Address: [address] [place], [place] [address]Performed By: #### 18981-5 #### [facility] [place] [id number] [address] [place] [address] [place] AMERICAMonocytes/100 WBC (Bld)12.2 %NormalAv HospitalComment on above:Order Comment: Specimen Type: BLOOD SPECIMEN Ordering Facility: [facility] Address: [address] [place], [place] [address]Performed By: #### 56285-0 #### [facility] IA [id number] [address] [place] [address] [place] AMERICANeutrophils (Bld) [#/Vol]5.82 10*3/uL Normal1.45-7.50Av HospitalComment on above:Order Comment: Specimen Type: BLOOD SPECIMEN Ordering Facility: [facility] Address: [address] [place], [place] [address]Performed By: #### 52142-7 #### [facility] [place] [id number] [address] [place] [address] [place] AMERICANeutrophils/100 WBC (Bld)62.8 %NormalAv HospitalComment on above:Order Comment: Specimen Type: BLOOD SPECIMEN Ordering Facility: [facility] Address: [address] [place], [place] [address]Performed By: #### 34686-6 #### [facility] [place] [id number] [address] [place] [address] [place] AMERICANucleated RBC (Bld) [#/Vol]10*3/uLNormal <0.01Av HospitalComment on above:Order Comment: Specimen Type: BLOOD SPECIMEN Ordering Facility: [facility] Address: [address] [place], [place] [address]Performed By: #### 35439-9 #### [facility] IA [id number] [address] [place] [address] [place] AMERICANucleated RBC/100 WBC (Bld) [Ratio]0.0 /100 WBCNormalAvon HospitalComment on above:Order Comment: Specimen Type: BLOOD SPECIMEN Ordering Facility: [facility] Address: [address] [place], [place] [address]Performed By: #### 48763-4 #### [facility] IA [id number] [address] [place] [address] [place] AMERICAPlatelet mean volume (Bld) [Entitic vol] 9.6 fLNormal9.0-12.7Avon HospitalComment on above:Order Comment: Specimen Type: BLOOD SPECIMEN Ordering Facility: [facility] Address: [address] [id number] By: #### 03980-5 #### [facility] IA [id number] [address] [facility] [place] [address] COMMUNITY HOSPITALPlatelets (Bld) [#/Vol]270 10*3/uLNormal 150-400Av HospitalComment on above:Order Comment: Specimen Type: BLOOD SPECIMEN Ordering Facility: [facility] Address: [address] [place], [place] [address]Performed By: #### 41295-3 #### [facility] IA [id number] [address] [place] [address] COMMUNITY HOSPITALRB (Bld) [#/Vol]4.73 10*6/uLNormal 4.20-6.00Av HospitalComment on above:Order Comment: Specimen Type: BLOOD SPECIMEN Ordering Facility: [facility] Address: [address] [place], [place] [address]Ejykqlcfv By: #### 59959-9 #### [facility] IA [id number] [address] [place] [address] COMMUNITY HOSPITALW (d) [#/Vol]9.26 10*3/uLNormal 3.70-11.00Av HospitalComment on above:Order Comment: Specimen Type: BLOOD SPECIMEN Ordering Facility: [facility] Address: [address] [place], [place] [address]Performed By: #### 94642-2 #### [facility] IA [id number] [address] [place] [address] COMMUNITY HOSPITALCONFIRM BLOOD TYPEon 45-99-0385LDNPNhivws Avon HospitalComment on above:Order Comment: Specimen Type: BLOOD SPECIMEN Ordering Facility: [facility] Address: [address] [place], [place] [address]Performed By: #### CONABO #### [facility] CLIA [id number] [address] [facility] [place] [address] COMMUNITY HOSPITALRh Nom (Bld)NegativeNormalCleveland ClinicComment on above:Order Comment: Specimen Type: BLOOD SPECIMEN Ordering Facility: [facility] Address: [address] [place], [place] [address]Performed By: #### CONABO #### [facility] CLIA [id number] [address] [place] [address] COMMUNITY HOSPITALPerformed By: #### [id number] #### [facility] CLIA [id number] [address] [place] [address] COMMUNITY HOSPITALECG COMPLETEon 60-51-0884OPF COMPLETE Ventricular Rate : 55 BPM Atrial Rate : 55 BPM P-R Interval : 132 ms QRS Duration : 96 ms Q-T Interval : 420 ms QTC Calculation(Bazett) : 401 ms Calculated P [place] : 57 degrees Calculated R [place] : 63 degrees Calculated T [place] : 73 degrees Sinus bradycardia Possible Left atrial enlargement Borderline ECG Confirmed by LEX ACUNA DO ([id number]) on 08/18/2023 10:08:16 AM NAME : BRADEN RODRIGUEZ PID : [id number] : 1955 Gender : Male Race : ORD : [id number] Procedure Date : Aug 06 2023 08:48:24 Edit Date : Aug 18 2023 10:08:19 Diagnosis: Sinus bradycardia Possible Left atrial enlargement Borderline ECG Confirmed by LEX ACUNA DO ([id number]) on 08/18/2023 10:08:16 AM Test Reason : HCS Location : 301 : [facility] Overread By : LEX ACUNA DO Edited By : LEX ACUNA DO Referred By : KATHERINE KEITH Acquired by : brigetteMorgan County ARH HospitalFerritin [facility] 79-42-2621Oqjyvklv [Mass/Vol]322.8 ng/uSQxirlg45.3-565.7Avon HospitalComment on above:Order Comment: Specimen Type: BLOOD SPECIMEN Ordering Facility: [facility] Address: [address] [place], [place] [address]Performed By: #### 32640-8, 2276-4, 92971-3 #### [facility] CLIA [id number] [address] [facility] [place] [address] COMMUNITY HOSPITALHISTORY PHYSICALon 47-40-7655EMCHWRM PHYSICALHNO ID: [id number] Author: SANAM GILL PA-C Service: ? Author Type: Physician [place] Worker Type: H&P Filed: 08/06/2023 12:03 Note Text: [...] over the last year. Relieving factors include Lav[place] and steroids. Aggravating factors include repetitive movement. [...] COVID-19 original vaccine, a (more content not included)...NormalAv HospitalIron and Iron binding capacity panelon 08-06-2023 Iron [Mass/Vol]99 ug/kSPkuzjj37-141Lyqj HospitalComment on above:Order Comment: Specimen Type: BLOOD SPECIMEN Ordering Facility: [facility] Address: [address] [place], [place] [address]Performed By: #### 66614-4, 2276-4, 53243-0 #### [facility] CLIA [id number] [address] [place] [address] [place] AMERICAIron binding capacity [Mass/Vol]252 ug/dL Usakqe829-103Rbvc HospitalComment on above:Order Comment: Specimen Type: BLOOD SPECIMEN Ordering Facility: [facility] Address: [address] [place], [place] [address]Performed By: #### 66323-7, 2276-4, 77347-4 #### [facility] CLIA [id number] [address] [place] [address] [place] AMERICAIron/TIBC [Molar ratio]39.3 %Normal 15.0-57.0AvOrthoIndy HospitalComment on above:Order Comment: Specimen Type: BLOOD SPECIMEN Ordering Facility: [facility] Address: [address] [place], [place] [address]Performed By: #### 82854-4, 2276-4, 32212-7 #### [facility] CLIA [id number] [address] [place] [address] [place] AMERICALaboratory - Blood bankon 11-14-9322GAK group Nom (Bld)OCleveland ClinicNo Panel Informationon 15-08-2449Wbtwbjdhu ClinicSTAPHYLOCOCCUS AUREUS AND MRSA SCREEN, PCR, NASALon 08-06-2023S. aureus and MRSA panel BARBARA+probe (Nose)Not detectedNormalNew Sunrise Regional Treatment Center Comment on above:Order Comment: Specimen Type: SWAB Ordering Facility: [facility] Address: [address] [place], [place] [address]Performed By: #### SAPCR #### [facility] CLIA [id number] [address] [place], [place] [address] [address] [place] AMERICATYPE AND SCREEN,30 DAYon 61-66-0355Nmqlb group antibody screen QlNegativeChildren's Hospital for RehabilitationComment on above:Order Comment: Specimen Type: BLOOD SPECIMEN Ordering Facility: [facility] Address: [address] [place], [place] [address]Performed By: #### [id number] #### [facility] CLIA [id number] [address] [place] [address] [place] AMERICAHIstorical Ab Scr StatusNegativeNormal Regency Hospital ToledoComment on above:Order Comment: Specimen Type: BLOOD SPECIMEN Ordering Facility: [facility] Address: [address] [place], [place] [address]Performed By: #### [id number] #### [facility] CLIA [id number] [address] [place] [address] [place] AMERICACNPNon 56-45-9485MKNYVkmhonQqdvwjgok Clinic ClevelandCT LUMBAR SPINE WO IVCONon 96-25-8325XI LUMBAR SPINE WO IVCON* * *Final Report* * * DATE OF EXAM: May 04 2023 8:14AM [facility] 0508 - CT LUMBAR SPINE WO [...] caudal rib-bearing vertebra is counted as T12. Tour Conductor (topogram) images: No significant additional findings Alignment: [...] crest and there are 5 lumbar-type vertebrae. Mental Health Advanced Practice Nurse: [facility] Transcribe Date/Time: May 04 2023 9:20A Dictated by : CLAIRE LAZAR MD This examination was interpreted and the report reviewed and electronically signed by: CLAIRE LAZAR MD on May 04 2023 9:32AM EST [id number] Battle Creek HospitalCT Lumbar spine WO contraston 02-34-7846Jrusaisbu ClinicXR Lumbar spine Views W flexion and W extensionon 92-12-0130Koougvstx ClinicXR Thoracic and lumbar spine Views for scoliosis W standingon 12-34-8531Eqoighsjn ClinicCreatinine (Bld) [Mass/Vol]Ordered By: Shae Guillory on 41-71-0978Eyuplyehew [Mass/Vol]1.0 mg/dL0.6-1.3FSuburban Community Hospital & Brentwood HospitalComment on above:ER/ESD physician is notified/shown all ISTAT results.Critical values may be confirmed by laboratorytesting ifdeemed necessary by ER attending doctor.CT ABDOMEN W CONon 66-16-4549TX ABDOMEN W CON EXAMINATION: CT ABDOMEN W [...] Electronically authenticated by: WILTON NICHOLE Date: 2022-04-12 08:12Adena Health SystemCREATININEon 83-46-7439Xlwdyucpto [Mass/Vol]0.80 mg/dLNormal 0.70-1.30The [facility] Memorial Hospitalment on above:Performed By: #### PSASC, VITAD #### [facility] [address] [place] [address] Dr. Max GrandeGFR-AF ARMENIAN>60Normal>=60The [facility] on above:Performed By: #### PSASC, VITAD #### [facility] [address] [address] [address] Max GrandeGFR-NON AF ARMENIAN>60Normal>=60The [facility] on above:Performed By: #### PSASC, VITAD #### [facility] [address] [address] [address] Max PeckXR ABD FLAT UP_PA Kuldip 99-65-3560NC ABD FLAT UP_PA CHACUTE ABDOMINAL SERIES WITH CHEST X-RAY HISTORY: Abdominal [...] Electronically authenticated by: EDENILSON KNIGHT Date: 2022-03-16 10:42Adena Health SystemLIPID PROFILEon 18-18-2198ICQH-HDL RATIO NORMSEE BELOWNormal The [facility] AndersonComment on above:Result Comment: 3.3 - 4.4 LOW RISK 4.4 - 7.1 AVERAGE RISK 7.1 - 11.0 MODERATE RISK >11.0 HIGH RISKPerformed By: #### PSASC, VITAD #### [facility] [address] [address] [address] Max Gomezesterol [Mass/Vol]163 mg/dLNormal<=200[facility] Comment on above:Performed By: #### PSASC, VITAD #### [facility] [address] [address] [address] Max Gomezesterol in HDL [Mass/Vol]50 mg/pDRzgjqz72-42NckAcmc Healthcare System GlenbeighComsheridan community hospital on above:Performed By: #### PSASC, VITAD #### [facility] [address] [address] [address] Max Gomezesterol in LDL [Mass/Vol]100.0 mg/dLNormUniversity Hospitals Geneva Medical CenterComment on above:Performed By: #### PSASC, VITAD #### [facility] [address] [address] [address] Max Hendrickson.total/Cholesterol in HDL [Mass ratio]3.3 {ratio} NormalThe [facility] AndersonComsheridan community hospital on above:Performed By: #### PSASC, VITAD #### [facility] [address] [address] [address] Max Moffett NORMAL> or = 60 mg/dl - LOW CARDIOVASCULAR RISK <40 mg/dl - HIGH CARDIOVASCULAR RISKNoChillicothe VA Medical CenterComment on above:Performed By: #### PSAPOP, VITAD #### [facility] [address] [address] [address] Max Redman CALC NORMALSEE BELOWAdena Health SystemComment on above:Result Comment: <100 mg/dl OPTIMAL 100 - 129 mg/dl NEAR OR ABOVE OPTIMAL 130 - 159 mg/dl BORDERLINE HIGH 160 - 189 mg/dl HIGH >190 mg/dl VERY HIGH Performed By: #### PSAPOP, VITAD #### [facility] [address] [place] [address] Dr. Max PeckTriglyceride [Mass/Vol]65 mg/dLNormal<=150The [facility] Comment on above:Performed By: #### PSAPOP, VITAD #### [facility] [address] [place] [address] Dr. Max PeckVLDL CALC13.0 mg/dLNoChillicothe VA Medical CenterComment on above: Performed By: #### PRUDENCIO, VITAD #### [facility] [address] [place] [address] Dr. Max PeckPROF 14(COMP METB)on 70-84-3939Fgrnqef [Mass/Vol]3.9 g/dLNormal 3.4-5.0The [facility] on above:Performed By: #### PRUDENCIO, VITAD #### [facility] [address] [place] [address] Dr. Max PeckAlbumin/Globulin [Mass ratio]1.3 {ratio}NormalThe [facility] AndersonComment on above:Performed By: #### PSASC, VITAD #### [facility] [address] [place] [address] Dr. Max Goldstein [Catalytic activity/Vol]79 U/GBvzxlm36-826Zso [facility] on above:Performed By: #### PSASC, VITAD #### [facility] [address] [place] [address] Dr. Max Yung [Catalytic activity/Vol]24 U/XFegaaj31-41Xiu [facility] Memorial Hospitalment on above:Performed By: #### PSASC, VITAD #### [facility] [address] [place] [address] Dr. Max Garduno gap [Moles/Vol]12.3 mmol/LNormalThe [facility] Comment on above:Performed By: #### PSASC, VITAD #### [facility] [address] [place] [address] Dr. Max PeckAST [Catalytic activity/Vol]25 U/PCrebsv21-30The [facility] AndersonComment on above:Performed By: #### PSASC, VITAD #### [facility] [address] [place] [address] Dr. Max PeckBilirubin [Mass/Vol]1.4 mg/dLCritically high0.2-1.0The [facility] AndersonComment on above:Performed By: #### PSASC, VITAD #### [facility] [address] [place] [address] Dr. Max PeckCalcium [Mass/Vol]9.1 mg/dLNormal8.5-10.1[facility] Comment on above:Performed By: #### PSASC, VITAD #### [facility] [address] [place] [address] Dr. Max PeckChloride [Moles/Vol]100 mmol/VXitgad62-686NgsAcmc Healthcare System [facility] Comment on above:Performed By: #### PSASC, VITAD #### [facility] [address] [place] [address] Dr. Max PeckCO2 [Moles/Vol]30.7 mmol/PJzwmeb54.0-32.0[facility] Comment on above:Performed By: #### PSASC, VITAD #### [facility] [address] [place] [address] Dr. Max PeckCreatinine [Mass/Vol]0.86 mg/dLNormal0.70-1.30[facility] System GlenbeighComment on above:Performed By: #### PSASC, VITAD #### [facility] [address] [place] [address] Dr. Yilan ChangEGFR-AF GQAUCYIX32 mL/min/1.11m0Wlvocw>=60[facility] Comment on above:Performed By: #### PRUDENCIO, VITAD #### [facility] [address] [place] [address] Dr. Max GrandeGFR-NON AF DDYYGELG21 mL/min/1.47o3Yhnrcx>=60[facility] System GlenbeighComment on above:Performed By: #### PSAPOP, VITAD #### [facility] [address] [place] [address] Dr. Max PeckGlobulin (S) [Mass/Vol]3.1 g/dLNormalThe [facility] AndersonComment on above:Performed By: #### PRUDENCIO, VITAD #### [facility] [address] [place] [address] Dr. Max PeckGlucose [Mass/Vol]102 mg/kWRbapgx13-435ParAcmc Healthcare System [facility] Comment on above:Performed By: #### PRUDNECIO, VITAD #### [facility] [address] [place] [address] Dr. Max PeckPotassium [Moles/Vol]4.0 mmol/LNormal3.5-5.1[facility] Comment on above:Performed By: #### PRUDENCIO, VITAD #### [facility] [address] [place] [address] Dr. Max PeckProtein [Mass/Vol]7.0 g/dLNormal6.4-8.2[facility] Comment on above:Performed By: #### PSAPOP, VITAD #### [facility] [address] [place] [address] Dr. Max PeckSodium [Moles/Vol]139 mmol/STpoceq995-307LzwAcmc Healthcare System [facility] Comment on above:Performed By: #### PSAPOP, VITAD #### [facility] [address] [place] [address] Dr. Max PeckUrea nitrogen [Mass/Vol]10.0 mg/dLNormal7.0-18.0The [facility] AndersonComment on above:Performed By: #### PSAPOP, VITAD #### [facility] [address] [address] [address] Max Sherwood nitrogen/Creatinine [Mass ratio]11.6 mg/mgNoChillicothe VA Medical CenterComment on above:Performed By: #### PSASC, VITAD #### [facility] [address] [address] [address] Max PeckXR CSPINE MIN 4 VIEWSon 31-97-3539SN CSPINE MIN 4 VIEWS EXAMINATION: XR CSPINE [...] Electronically authenticated by: WILTON NICHOLE Date: 2022-01-19 07:14Adena Health SystemHEPATITIS PANEL, ACUTEon 83-66-6952LCnGo ScreenNegativeNormal NegativeAcmc Healthcare System GlenbeighComment on above:Performed By: #### PRUDENCIO, VITAD #### [facility] [address] [place] [address] Dr. Max PeckHCV AB<0.5Nsiibo5.0-0.9The [facility] AndersonComment on above: Performed By: #### PSASC, VITAD #### [facility] [address] [place] [address] Dr. Max Moncada Ab, IgMNegativeNormalNegativeThe [facility] AndersonComment on above:Performed By: #### PSASC, VITAD #### [facility] [address] [place] [address] Dr. Max Lamb Core Ab, IgMNegativeNormalNegativeThe [facility] Comment on above:Performed By: #### PSASC, VITAD #### [facility] [address] [place] [address] Dr. Max PeckInterpretation:CommentNormalThe [facility] AndersonComment on above:Result Comment: Negative Not infected with HCV, unless recent infection is suspected or other evidence exists to indicate HCV infection.Performed By: #### PSASC, VITAD #### [facility] [address] [place] [address] Dr. Max PeckINSULINon 19-13-4952Pltcrno16.1 uIU/mLNormal2.6-24.9The [facility] AndersonComment on above:Performed By: #### PRUDENCIO, VITAD #### [facility] [address] [place] [address] Dr. Max PeckTESTOSTERONE, TOTALon 58-07-4779Bffmhdzupuqi [Mass/Vol]766 ng/dL Yqpteh749-230Bch [facility] AndersonComment on above:Result Comment: Adult male reference interval is based on a population of healthy nonobese males (BMI <30) between 19 and 39 years old. Teddy et.al. JCEM 2017,102;5006-7199. PMID: [id number].Performed By: #### PSASC, VITAD #### [facility] [address] [place] [address] Dr. Max PeckCBC AUTO DIFFon 41-41-6486DKHP #0.0 103/ulNormal0.0-0.1The [facility] AndersonComment on above:Performed By: #### PSASC, VITAD #### [facility] [address] [place] [address] Dr. Max PeckBasophils/100 WBC (Bld)0.4 %Normal0.2-2.0The [facility] Comment on above:Performed By: #### PSASC, VITAD #### [facility] [address] [place] [address] Dr. Max Amanda #0.0 103/ulNormal0.0-0.7The [facility] AndersonComment on above: Performed By: #### PSASC, VITAD #### [facility] [address] [place] [address] Dr. Max Grandeosinophils/100 WBC (Bld)0.3 %Critically low0.9-7.0The [facility] AndersonComment on above:Performed By: #### PSASC, VITAD #### [facility] [address] [place] [address] Dr. Max Granderythrocyte distribution width (RBC) [Ratio]12.5 %Zgxivm54.0-15.0 [facility] System GlenbeighComment on above:Performed By: #### PSAPOP, VITAD #### [facility] [address] [place] [address] Dr. Max PeckHematocrit (Bld) [Volume fraction]41.5 %Critically low42.0-54.0 [facility] System GlenbeighComment on above:Performed By: #### PSAPOP, VITAD #### [facility] [address] [place] [address] Dr. Max PeckHemoglobin (Bld) [Mass/Vol]14.0 g/jCTgglxw66.0-18.0The [facility] Hospitalment on above:Performed By: #### PRUDENCIO, VITAD #### [facility] [address] [place] [address] Dr. Max Encinas #0.09 10e3/ulCritically high0.00-0.03The [facility] Comment on above:Performed By: #### PSAPOP, VITAD #### [facility] [address] [place] [address] Dr. Max Encinas %0.9 %Critically high0.0-0.5The [facility] Hospitalment on above:Performed By: #### PSASC, VITAD #### [facility] [address] [place] [address] Dr. Max García #2.6 103/ulNormal1.2-3.8The [facility] AndersonComment on above:Performed By: #### PSASC, VITAD #### [facility] [address] [place] [address] Dr. Max Lucasmphocytes/100 WBC (Bld)25.0 %Ssryie88.5-60.0The [facility] AndersonComment on above:Performed By: #### PSASC, VITAD #### [facility] [address] [place] [address] Dr. Max Anderson DIFF REQNONormalThe [facility] AndersonComment on above: Performed By: #### PSASC, VITAD #### [facility] [address] [place] [address] Dr. Max Flores (RBC) [Entitic mass]32.6 hhWkogtz89.9-34.0The [facility] AndersonComment on above:Performed By: #### PSASC, VITAD #### [facility] [address] [place] [address] Dr. Max Flores (RBC) [Mass/Vol]33.7 g/xIClryyo18.9-35.2The [facility] AndersonComment on above:Performed By: #### PSASC, VITAD #### [facility] [address] [place] [address] Dr. Max Flores (RBC) [Entitic vol]96.7 fLCritically high80.0-94.0The [facility] Hospitalment on above:Performed By: #### PSASC, VITAD #### [facility] [address] [place] [address] Dr. Max Fay #1.2 103/ulCritically high0.3-0.8The [facility] Comment on above:Performed By: #### PSASC, VITAD #### [facility] [address] [place] [address] Dr. Max Crocytes/100 WBC (Bld)11.1 %Normal1.7-12.0The [facility] Comment on above:Performed By: #### PSASC, VITAD #### [facility] [address] [place] [address] Dr. Max Champion #6.4 103/ulNormal1.4-6.5The Clark HospitalComment on above:Performed By: #### PSAPOP, VITAD #### [facility] [address] [place] [address] Dr. Max Pattersonutrophils/100 WBC (Bld)62.3 %Vikjqa59.0-75.0The [facility] on above:Performed By: #### PSAPOP, VITAD #### [facility] [address] [place] [address] Dr. Max Panlet mean volume (Bld) [Entitic vol]9.6 fLNormal9.5-13.5The [facility] AndersonComment on above:Performed By: #### PRUDENCIO, VITAD #### [facility] [address] [place] [address] Dr. Max PeckPLT323 103/gsHdgjym066-503Lhp [facility] on above: Performed By: #### PRUDENCIO, VITAD #### [facility] [address] [place] [address] Dr. Max PeckRBC4.29 106/ulCritically low4.70-6.10The [facility] on above:Performed By: #### PSAPOP, VITAD #### [facility] [address] [place] [address] Dr. Max PeckWBC10.3 103/ulNormal4.0-11.0The [facility] on above:Performed By: #### PSAPOP, VITAD #### [facility] [address] [place] [address] Dr. Max Trejo THYROXINE INDEX T7on 93-19-7839NQZ3.55Iduwof9.30-4.50The [facility] on above:Performed By: #### TSH, URIC, T7, LIPID, CMP #### [facility] [address] [place] [address] Dr. Max PeckT3U36.0 %Fylokx39.0-40.0The [facility] on above: Performed By: #### TSH, URIC, T7, LIPID, CMP #### [facility] [address] [address] [address] Max PeckT4 [Mass/Vol]6.70 ug/dLNormal4.50-12.10ThDelaware County Hospital Comment on above:Performed By: #### TSH, URIC, T7, LIPID, CMP #### [facility] [address] [address] [address] Max PeckGLYCOHEMOGLOBIN A1Con [id number] RECOMMENDATIONSEE BELOWSelect Medical Cleveland Clinic Rehabilitation Hospital, Edwin ShawComment on above:Result Comment: ADA RECOMMENDED LIMIT 4.0 - 6.0 ADA THERAPEUTIC TARGET < 7.0 ACTION SUGGESTED > 7.0Performed By: #### PSASC, VITAD #### [facility] [address] [place] [address] Dr. Max PeckGlucose [Mass/Vol]97 mg/dLNoChillicothe VA Medical CenterComment on above:Performed By: #### PSASC, VITAD #### [facility] [address] [place] [address] Dr. Max PeckHbA1c (Bld) [Mass fraction]5.0 %Normal4.5-6.2A[facility] Healthcare System GlenbeighComment on above:Performed By: #### PSASC, VITAD #### [facility] [address] [place] [address] Dr. Max PeckLIPID PROFILEon [id number]-HDL RATIO NORMSEE [facility] City HospitalComment on above:Result Comment: 3.3 - 4.4 LOW RISK 4.4 - 7.1 AVERAGE RISK 7.1 - 11.0 MODERATE RISK >11.0 HIGH RISKPerformed By: #### TSH, URIC, T7, LIPID, CMP #### [facility] [address] [place] [address] Dr. Max PeckCholesterol [Mass/Vol]221 mg/dLCritically high<=200The [facility] on above:Performed By: #### TSH, URIC, T7, LIPID, CMP #### [facility] [address] [place] [address] Dr. Max Gomezesterol in HDL [Mass/Vol]41 mg/oKTsdmhd04-08MpwAcmc Healthcare System GlenbeighComsheridan community hospital on above:Performed By: #### TSH, URIC, T7, LIPID, CMP #### [facility] [address] [address] [address] Max PeckCholesterol in LDL [Mass/Vol]157.2 mg/dLAdena Health SystemComment on above:Performed By: #### TSH, URIC, T7, LIPID, CMP #### [facility] [address] [address] [address] Max Gomezesterjanki.total/Cholesterol in HDL [Mass ratio]5.4 {ratio} NormalThe [facility] AndersonComsheridan community hospital on above:Performed By: #### TSH, URIC, T7, LIPID, CMP #### [facility] [address] [place] [address] Dr. Max Moffett NORMAL> or = 60 mg/dl - LOW CARDIOVASCULAR RISK <40 mg/dl - HIGH CARDIOVASCULAR RISKNoChillicothe VA Medical CenterComment on above:Performed By: #### TSH, URIC, T7, LIPID, CMP #### [facility] [address] [place] [address] Dr. Max Redman CALC NORMALSEE BELOWAdena Health SystemComment on above:Result Comment: <100 mg/dl OPTIMAL 100 - 129 mg/dl NEAR OR ABOVE OPTIMAL 130 - 159 mg/dl BORDERLINE HIGH 160 - 189 mg/dl HIGH >190 mg/dl VERY HIGH Performed By: #### TSH, URIC, T7, LIPID, CMP #### [facility] [address] [place] [address] Dr. Max PeckTriglyceride [Mass/Vol]114 mg/dLNormal<=150[facility] Comment on above:Performed By: #### TSH, URIC, T7, LIPID, CMP #### [facility] [address] [place] [address] Dr. Max PeckVLDL CALC22.8 mg/dLAdena Health SystemComment on above: Performed By: #### TSH, URIC, T7, LIPID, CMP #### [facility] [address] [place] [address] Dr. Max Chance 14(COMP METB)on 37-46-4717Kssageq [Mass/Vol]3.9 g/dLNormal 3.4-5.0The [facility] AndersonComment on above:Performed By: #### TSH, URIC, T7, LIPID, CMP #### [facility] [address] [place] [address] Dr. Max PeckAlbumin/Globulin [Mass ratio]1.3 {ratio}NormalThe [facility] AndersonComment on above:Performed By: #### TSH, URIC, T7, LIPID, CMP #### [facility] [address] [place] [address] Dr. Max Goldstein [Catalytic activity/Vol]63 U/EObrfte79-065Yqy [facility] AndersonComment on above:Performed By: #### TSH, URIC, T7, LIPID, CMP #### [facility] [address] [place] [address] Dr. Max Yung [Catalytic activity/Vol]75 U/LCritically hnce51-51Csa [facility] AndersonComment on above:Performed By: #### TSH, URIC, T7, LIPID, CMP #### [facility] [address] [place] [address] Dr. Max Garduno gap [Moles/Vol]8.8 mmol/LNormalThe [facility] AndersonComment on above:Performed By: #### TSH, URIC, T7, LIPID, CMP #### [facility] [address] [place] [address] Dr. Max Parrish [Catalytic activity/Vol]41 U/LCritically eica76-09Qlt [facility] AndersonComment on above:Performed By: #### TSH, URIC, T7, LIPID, CMP #### [facility] [address] [place] [address] Dr. Max Drewirubin [Mass/Vol]0.8 mg/dLNormal0.2-1.0The [facility] Comment on above:Performed By: #### TSH, URIC, T7, LIPID, CMP #### [facility] [address] [address] [address] Max PeckCalcium [Mass/Vol]9.1 mg/dLNormal8.5-10.1The [facility] Comment on above:Performed By: #### TSH, URIC, T7, LIPID, CMP #### [facility] [address] [address] [address] Max PeckChloride [Moles/Vol]102 mmol/UAjnjhc62-600Obh [facility] Comment on above:Performed By: #### TSH, URIC, T7, LIPID, CMP #### [facility] [address] [place] [address] Dr. Max PeckCO2 [Moles/Vol]33.8 mmol/LCritically high21.0-32.0The [facility] AndersonComment on above:Performed By: #### TSH, URIC, T7, LIPID, CMP #### [facility] [address] [place] [address] Dr. Max PeckCreatinine [Mass/Vol]0.80 mg/dLNormal0.70-1.30The [facility] AndersonComment on above:Performed By: #### TSH, URIC, T7, LIPID, CMP #### [facility] [address] [place] [address] Dr. Max Gonzalez-AF ARMENIAN>60Normal>=60The [facility] AndersonComment on above:Performed By: #### TSH, URIC, T7, LIPID, CMP #### [facility] [address] [place] [address] Dr. Max Gonzalez-NON AF ARMENIAN>60Normal>=60The [facility] AndersonComment on above:Performed By: #### TSH, URIC, T7, LIPID, CMP #### [facility] [address] [place] [address] Dr. Max PeckGlobulin (S) [Mass/Vol]2.9 g/dLNormalThe [facility] AndersonComment on above:Performed By: #### TSH, URIC, T7, LIPID, CMP #### [facility] [address] [place] [address] Dr. Yilan ChangGlucose [Mass/Vol]99 mg/tVRgwpcc34-702Ndg [facility] Comment on above:Performed By: #### TSH, URIC, T7, LIPID, CMP #### [facility] [address] [address] [address] Max PeckPotassium [Moles/Vol]3.6 mmol/LNormal3.5-5.1The [facility] Comment on above:Performed By: #### TSH, URIC, T7, LIPID, CMP #### [facility] [address] [address] [address] Max PeckProtein [Mass/Vol]6.8 g/dLNormal6.4-8.2The [facility] Comment on above:Performed By: #### TSH, URIC, T7, LIPID, CMP #### [facility] [address] [place] [address] Dr. Max PeckSodium [Moles/Vol]141 mmol/EEepufd608-154Cwh [facility] Comment on above:Performed By: #### TSH, URIC, T7, LIPID, CMP #### [facility] [address] [place] [address] Dr. Max PeckUrea nitrogen [Mass/Vol]16.0 mg/dLNormal7.0-18.0The [facility] AndersonComment on above:Performed By: #### TSH, URIC, T7, LIPID, CMP #### [facility] [address] [place] [address] Dr. Max PeckUrea nitrogen/Creatinine [Mass ratio]20.0 mg/mgNormalThe [facility] AndersonComment on above:Performed By: #### TSH, URIC, T7, LIPID, CMP #### [facility] [address] [place] [address] Dr. Max Jenkins 23-89-9808ATE6.544 uIU/mLNormal0.358-3.740The [facility] AndersonComment on above:Performed By: #### TSH, URIC, T7, LIPID, CMP #### [facility] [address] [place] [address] Dr. Max PeckURIC ACID SERUMon 98-82-8714Fgbaq [Mass/Vol]5.4 mg/dLNormal 3.5-7.2[facility] Healthcare System GlenbeighComment on above:Performed By: #### TSH, URIC, T7, LIPID, CMP #### [facility] [address] [place] [address] Dr. Max PeckVITAMIN D 25 OHon 20-36-2950TOE D 25-OH51.2 ng/mLNormalThe [facility] AndersonComment on above:Performed By: #### PSASC, VITAD #### [facility] [address] [place] [address] Dr. Max Hernandez RANGESSEE BELOWAdena Health SystemComment on above: Result Comment: <20 ng/mL Vit D deficient 20 - <30 ng/mL Vit D insufficient 30 - 100 ng/mL Vit D sufficient >100 ng/mL Potential ToxicityPerformed By: #### PSASC, VITAD #### [facility] [address] [place] [address] Dr. Max PeckCardiovascular Lab Reporton [id number] Lab Report [facility] Patient Name: Braden Rodriguez [facility] MR #: [id number] Physician: Domenic Kohler MD Department of Service Date: 07/31/2020 Medicine Birthdate: 1955 Division of Room #: Cardiology Adult Cardiovascular Services [address] [address] Cardiovascular Laboratory Report The patient is a [...] Antwan/Domenic Kohler MD Date Trans: 09/01/2020 10:51 Antwan/sergio DN_JN:[id number] cc: Ester Cain M.D. [address] [place] [address]GiasjzFzjHarrison Community HospitalLUMBAR SPINE 2 OR 3 VIEWSon 07-03-6670QZJKKM SPINE 2 OR 3 VIEWSSTUDY: LUMBAR SPINE 2 OR 3 VIEWS; 05/19/2019 9:49 am INDICATION: PAIN. COMPARISON: None. ACCESSION NUMBER(S): [id number] ORDERING CLINICIAN: Edgar Fairchild FINDINGS: No fracture or subluxation of the lumbar spine. L3-L5 laminectomy defects. Moderate to severe multilevel degenerative disc height loss with endplate sclerosis and osteophyte formation. Multilevel facet arthropathy. Moderate dextroscoliosis centered at L2. IMPRESSION: Severe degenerative changes of the lumbar spine. L3-L5 laminectomy defects.NormalSt. Kaiser Medical Center Vital Signs Date TimeVital SignValuePerforming HvnzzofrfKrywaury10-35-5488 16:07-0400Body ivosfclugxe15.71 [degF]Mahamed Gray DPM Work Phone: [facility] CenterOevbusgmmz19-09-0024 16:07-0400Diastolic blood eytvntkc05 mm[Hg]Mahamed Gray DPM Work Phone: [facility] CenterOmeosisufe38-76-5059 16:07-0400Heart rate48 /min Mahamed Gray DPM Work Phone: [facility] CenterZsnubyxzjc49-24-9236 16:07-0400Systolic blood iafdatrh819 mm[Hg]Mahamed Gray DPM Work Phone: [facility] CenterKmldveqghq29-89-9925 10:36-0400Body .88 cmEster Cain MD Work Phone: [facility]07-30-2025 10:36-0400 Body mass index (BMI) [Ratio]28.5 kg/a2BkpqhumEster Cain MD Work Phone: [phone] [place], [place] 4870607-30-2025 10:36-0400 Body lmjezzelqzx41.4 [degF]Ester Cain MD Work Phone: [phone] [place], [place] 4870607-30-2025 10:36-0400 Body abqrvq89.25 kgEster Cain MD Work Phone: [phone] [place], [place] 4870607-30-2025 10:36-0400 Diastolic blood urffqqnw50 mm[Hg]Ester Cain MD Work Phone: [phone]07-30-2025 10:36-0400 Heart rate50 /minDoukarl Cain MD Work Phone: [phone] [place], [place] 5[address]807-30-2025 10:36-0400 SaO2% (BldA) [Mass fraction]100 %Ester Cain MD Work Phone: [phone]07-30-2025 10:36-0400 Systolic blood ddsogzmo010 mm[Hg]Ester Cain MD Work Phone: [phone] [place], [place] 4870607-11-2025 10:41-0400 Body bpnhirigqcw58.71 [degF]Mahamed Gray DPM Work Phone: [facility] CenterAopteytrgj49-08-5892 10:41-0400Diastolic blood vggnfbom11 mm[Hg]Mahamed Gray DPM Work Phone: [facility] CenterGhdseedbwi51-60-9520 10:41-0400Heart rate58 /min Mahamed Gray DPM Work Phone: [facility] CenterDbasprpmhz94-41-4159 10:41-0400Systolic blood cimotffu48 mm[Hg]Mahamed Gray DPM Work Phone: [facility] CenterAipqpgwmbt15-54-1457 09:53-0400Body temperature 98.29 [degF]Nurse S[address] [place], [place] 7838504-09-2025 09:53-0400Diastolic blood mmdlduqz82 mm[Hg]Nurse [address]04-09-2025 09:53-0400Heart rate59 /min Nurse [address]04-09-2025 09:53-8598WyI9% (BldA) [Mass fraction]97 % Nurse [address]04-09-2025 09:53-0400Systolic blood irhtcelw553 mm[Hg] Nurse [address]03-30-2025 20:51-6454MuH7% (BldA) [Mass fraction]96 % ESTER [facility] City HospitalComment on above:Order Comment: Specimen Type: ARTERIAL BLOOD SPECIMENOrdering Facility: [facility] Address: [address] [place], [place] [address]Performed By: #### ALLBG ####[facility] LABCLIA [id number] [address]03-05-2025 11:13-0500Body height 182.9 cmKatherine Keith MD Work Phone: [facility]03-05-2025 11:13-0500Body mass index (BMI) [Ratio]27.8 kg/p1LxfsvoaKatherine Keith MD Work Phone: [facility]03-05-2025 11:13-0500Body waelpq68.99 kgKatherine Keith MD Work Phone: [facility]03-05-2025 11:13-0500Diastolic blood eaztxtjl11 mm[Hg]Katherine Keith MD Work Phone: [facility]03-05-2025 11:13-0500Heart rate73 /min Katherine Keith MD Work Phone: [facility]03-05-2025 11:13-0500Respiratory rate 19 /minDritu Keith MD Work Phone: [facility]03-05-2025 11:13-0500Systolic blood ictysuda800 mm[Hg]Katherine Keith MD Work Phone: [facility]03-05-2025 08:41-0500Body fxzueu686.9 cmAjack Boss MD Work Phone: [facility]03-05-2025 08:41-0500Body mass index (BMI) [Ratio]28.79 kg/v4MxarjRhona Boss MD Work Phone: [facility]03-05-2025 08:41-0500Body temperature 97 [degF]Rhona Boss MD Work Phone: [facility]03-05-2025 08:41-0500Body enbxbl82.3 kgRhona Boss MD Work Phone: [facility]03-05-2025 08:41-0500Diastolic blood okcszynl39 mm[Hg]Rhona Boss MD Work Phone: [facility]03-05-2025 08:41-0500Heart rate67 /min Rhona Boss MD Work Phone: [facility]03-05-2025 08:41-1278QlE0% (BldA) [Mass fraction]100 %Rhona Boss MD Work Phone: [facility]03-05-2025 08:41-0500Systolic blood mm[Hg]Rhona Boss MD Work Phone: [facility]11-05-2024 13:17-0500Body devhzy935.9 cmKatherine Keith MD Work Phone: [facility]11-05-2024 13:17-0500Body mass index (BMI) [Ratio]27.8 kg/j2JvvvmgkKatherine Keith MD Work Phone: [facility]11-05-2024 13:17-0500Body fuxgpc85.99 kgKatherine Keith MD Work Phone: [facility]11-05-2024 13:17-0500Diastolic blood smxojvpa26 mm[Hg]Katherien Keith MD Work Phone: [facility]11-05-2024 13:17-0500Heart rate84 /min Katherine Keith MD Work Phone: [facility]11-05-2024 13:17-0500Systolic blood daagztrr083 mm[Hg]Katherine Keith MD Work Phone: [facility]09-04-2024 14:16-0400Body itctgr238.9 cmKatherine Keith MD Work Phone: [facility]09-04-2024 14:16-0400Body mass index (BMI) [Ratio]27.84 kg/k2OqmjltrKatherine Keith MD Work Phone: [facility]09-04-2024 14:16-0400Body etnwux51.1 kgKatherine Keith MD Work Phone: [facility]09-04-2024 14:16-0400Diastolic blood zryjmyam22 mm[Hg]Katherine Keith MD Work Phone: [facility]09-04-2024 14:16-0400Heart rate71 /min Katherine Keith MD Work Phone: [facility]09-04-2024 14:16-0400Respiratory rate 18 /minDritu Keith MD Work Phone: [facility]09-04-2024 14:16-9004HxX0% (BldA) [Mass fraction]100 %Katherine Keith MD Work Phone: [facility] ToledoComment on above:room wnc90-44-1212 14:16-0400Systolic blood nxmrafnx038 mm[Hg]Katherine Keith MD Work Phone: [facility]09-03-2024 13:43-0400Blood Pressure YosefMicashley AGUSTIN 983-0597Ktuzoo-StszkGreen [facility] Hospital09-03-2024 13:43-0400Diastolic blood mkphotyf38 mm[Hg]Camryn AGUSTIN 141-6601Lqghre-ZquhcGreen Cross Hospital09-03-2024 13:43-0400Heart rate72 /minMichael NILL 795-3433Vmhhnv-GouupGreen Cross Hospital09-03-2024 13:43-0400Respiratory rate16 /minMichael NILL 506-1504Ulebjk-XvyolGreen Cross Hospital09-03-2024 13:43-0400Systolic blood ygvagqmt821 mm[Hg]Camryn NILL 589-4471Vkjmsx-AbascGreen Cross Hospital05-29-2024 09:43-0400Body svnteh531.9 cmPacc 1 Other Phone: [facility]05-29-2024 09:43-0400Body mass index (BMI) [Ratio]26.43 kg/m2Pacc 1 Other Phone: [facility]05-29-2024 09:43-0400Body temperature 98.1 [degF]Pacc 1 Other Phone: [facility]05-29-2024 09:43-0400Body fgepey54.4 kgPacc 1 Other Phone: [facility]05-29-2024 09:43-0400Diastolic blood mm[Hg]Pacc 1 Other Phone: [facility]05-29-2024 09:43-0400Heart rate56 /minPacc 1 Other Phone: [facility]05-29-2024 09:43-0400Respiratory rate 18 /minPacc 1 Other Phone: [facility]05-29-2024 09:43-2272EtJ7% (BldA) [Mass fraction]100 %Pacc 1 Other Phone: [facility]05-29-2024 09:43-0400Systolic blood ymaegasg597 mm[Hg]Pacc 1 Other Phone: [facility]02-21-2024 11:31-0500Body cjuyzj189.9 cmKatherine Keith MD Work Phone: [facility]02-21-2024 11:31-0500Body xrptca25.5 kgKatherine Keith MD Work Phone: [facility]02-21-2024 11:31-0500Diastolic blood mm[Hg]Katherine Keith MD Work Phone: [facility]02-21-2024 11:31-0500Heart rate78 /min Katherine Keith MD Work Phone: [facility]02-21-2024 11:31-9636OzN7% (BldA) [Mass fraction]96 %Katherine Keith MD Work Phone: [facility]02-21-2024 11:31-0500Systolic blood mm[Hg]Katherine Keith MD Work Phone: [facility]08-23-2023 10:15-0400Blood Pressure LocationKathy Lue [facility]08-23-2023 10:15-0400Diastolic blood kupfamvl47 mm[Hg]Shae Lue [facility]08-23-2023 10:15-0400Heart rate73 /minKathy Lue [facility]08-23-2023 10:15-0400Systolic blood idzoowlw585 mm[Hg]Shae Lue [facility]08-21-2023 06:50-0400Body tlguko985.88 cmMD Ester Hoy Work Phone: [facility]08-21-2023 06:50-0400 Body vltkfu91.91 kgMD Ester Hoy Work Phone: [facility]06-28-2023 07:45-0400 Blood Pressure LocationKathy Lue [facility]06-28-2023 07:45-0400Diastolic blood zvcetpex05 mm[Hg]Shae Lue [facility]06-28-2023 07:45-0400Heart rate51 /minKathy Lue [facility]06-28-2023 07:45-0400Respiratory rate16 /minKathy Lue [facility]06-28-2023 07:45-0400Systolic blood hrslxlza268 mm[Hg]Shae Lue [facility]01-25-2023 15:00-0500Blood Pressure LocationMichael NILL [facility] Apsekpkh24-27-6696 15:00-0500Diastolic blood iiqtcsem18 mm[Hg]Camryn NILL [facility] Xrectidj49-14-9243 15:00-0500Heart rate 80 /minMichael NILL [facility] Qwlaydsk78-65-8290 15:00-0500 Respiratory rate16 /minMichael NILL [facility] Kiwnigac76-58-4983 15:00-0500Systolic blood palhzeoo367 mm[Hg]Camryn NILL 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); PAD (peripheral artery disease); Absent pulse; Idiopathic peripheral neuropathyStart: 10-06-2024 End: 19-67-5408yxqahvemstACSTGV R KUBITZNot AvailableStart: 10-06-2024 End: 51-18-0245Kjcqsp flowsheetMahamed Gray DPM Work Phone: [facility] PodiatryStart: 10-06-2024 End: 65-25-8488Ccboea flowsheetMahamed Gray DPM Work Phone: [facility] PodiatryStart: 10-06-2024 End: 54-98-5354rfmummetegFsmcano M Hoy MD Work Phone: [facility] Work Phone: Start: 10-06-2024 End: 66-66-0144Gffjdky encounter procedureCitlali Black APRNAtrium Health [facility] Work Phone: Start: 09-27-2024 End: 13-61-1404Lzobhoj encounter procedureCWS Mahamed Gray DPM [facility] Work Phone: Start: 09-27-2024 End: 41-02-9714pzbtxkyaflBvvtqnl M Hoy MD Work Phone: [facility] Work Phone: Start: 09-17-2024 End: 12-49-7619Kcuskf flowsheetEugene R Kubitz DPM Work Phone: [facility] PODIATRYStart: 09-17-2024 End: 85-25-1357Htjrps flowsheetEugene R Kubitz DPM Work Phone: [facility] PODIATRYStart: 09-17-2024 End: 34-59-7304Dnawtd outpatient new 30 minutesEugene R Kubitz DPM Work Phone: [facility] [place] PodiatryComment on above:Idiopathic peripheral neuropathy (Primary Dx); Neurogenic ulcer, 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); PAD (peripheral artery disease); Absent pulse; Foot drop, bilateralStart: 09-17-2024 End: 46-44-7088psqodomlqyPPPPCO R KIRAot AvailableStart: 07-19-2024 End: 08-15-2777Uykahqivg to same day surgery centerAlfonso Loyd PA-C Work Phone: Sprer SurgeryComment on above:TherapyStart: 07-19-2024 End: 76-13-8710emvizcenuxVjuggsh Bonus PA-C Work Phone: spine SurgeryStart: 07-15-2024 End: 22-51-0024Uaxgkknjl to same day surgery centerAlfonso Loyd PA-C Work Phone: spine SurgeryComment on above:S/P cervical spinal fusion (Primary Dx)Start: 07-15-2024 End: 27-09-6999Ddcjlgkcpven consultation with patientAlfonso Loyd PA-C Work Phone: spine SurgeryStart: 07-15-2024 End: 83-36-9736ptwdffonoaMSWHEMO PELLEFacility:[facility] Centertart: 06-29-2024 End: 85-37-5665Trgjctwjeocc consultation with patientAlfonso Loyd PA-C Work Phone: spine InstituteStart: 06-29-2024 End: 00-92-7425pflahstjaqBpsvhnu Bonus PA-C Work Phone: spine InstituteComment on above:Spondylolysis, lumbar region (Primary Dx); S/P cervical spinal fusionX-ray schedulingStart: 06-28-2024 End: 99-43-5769VmxsgyGakwsjr Bonus PA-C Work Phone: spine InstituteComment on above:Refill RequestStart: 06-22-2024 End: 98-03-1484vdzqqekbefAysjsbd Bonus PA-C Work Phone: spine InstituteComment on above:Add Prednisone?Start: 06-21-2024 End: 34-35-6368Ovcgechnt to same day surgery centerKatherine Keith MD Work Phone: spine InstituteComment on above:Post surgery symptoms Refill RequestStart: 06-21-2024 End: 77-21-4970srtqytdoxzEnrdduq Pelle MD Work Phone: Spnse InstituteStart: 06-16-2024 End: 32-70-3477fwpawfzjutHYRULMD M HOYFacility:[facility] Centertart: 06-16-2024 End: 88-37-1108Erozowi encounter procedureNurse Spine Surg Main K87Gkick InstituteComment on above:Encounter for removal of sara (Primary Dx)Start: 06-14-2024 End: 10-14-9596GY Get Medical AdviceAlfonso Haqus PA-C Work Phone: Spine InstituteComment on above:Med RefillStart: 06-11-2024 End: 29-88-6213Mrhahygbn encounterKatherine Keith MD Work Phone: spine InstituteComment on above:Transition Of Care Start: 06-10-2024 End: 44-30-1974mqlsshwxotFnxtnvt Bonus PA-C Work Phone: Spine InstituteComment on above:[place] removalStart: 06-09-2024 End: 12-69-8124djpibmikbiUgnqivi Bonus PA-C Work Phone: Spine InstituteComment on above:Bathing instructions Start: 06-08-2024 End: 16-30-0195MqdlwyNishant Tse MD Work Phone: cardiologyComment on above:SVT (supraventricular tachycardia) (HCC) (Primary Dx); Elevated troponinDischargeStart: 06-04-2024 End: 83-74-8866ndtzruntjoRqwojil Bonus PA-C Work Phone: spine InstituteComment on above:Neck braceStart: 06-02-2024 End: 59-61-0350Mhvizpmamu and management of inpatientKATHERINE KEITH Facility:[facility]: 06-01-2024 End: 43-20-9328Lmatsymne to same day surgery [facility] [employer] Work Phone: spine InstituteComment on above:Phone number for surgery timeStart: 06-01-2024 End: 50-86-1132tubbdjzdxuZnzcdqm Bonus PA-C Work Phone: spine InstituteStart: 05-17-2024 End: 22-30-3610rpaimcrdozDkrgv Wilbert De La Cruz RNInternal Medicine Kettering [facility] Washington TownshipWgvppu6Gjrai: 61-84-3402ssdvxkvqidITVTKJQ PELLEFacility:[facility] Hospitaltart: 05-14-2024 End: 11-41-1758Fvlufnbeda hospital visit by physicianCt [facility] Work Phone: RADIO CT SCAN LODI HOSPComment on above:Spinal stenosis of cervical region [M48.02]Start: 05-12-2024 End: 72-89-8032bvouzsucukWKCFAJH PELLEFacility:[facility]ertart: 05-12-2024 End: 47-62-1863Enpuyhn encounter procedureKatherine Keith MD Work Phone: Spxip InstituteComment on above:Cervical spondylosis with myelopathy (Primary Dx); Spinal stenosis of cervical regionStart: 05-12-2024 End: 88-52-4829Anmvnpzxv to Vicente Boss MD Work Phone: intm MAIN IMPACTStart: 05-12-2024 End: 40-45-4789Cjsdsdokeyhhk examination Brooklynn Boss MD Work Phone: [facility] Work Phone: Start: 05-12-2024 End: 76-20-8725csyjkfhfacIszlqJaved Boss MD Work Phone: intm MAIN IMPACTComment on above:Pre-op evaluation (Primary Dx); Spinal stenosis of lumbar region, unspecified whether neurogenic claudication present; Primary hypertensionStart: 04-59-6128Pmrykxqsp for other preprocedural examinationRHONA CORTEZUC [facility] HospitalStart: 05-10-2024 End: 18-01-5812cuqvhyupxgZTCJPEB M HOYFacility:[facility] Centertart: 05-06-2024 End: 38-51-4103fyggclfcjbZmytmro Pelle MD Work Phone: Spytn InstituteStart: 05-06-2024 End: 58-83-8443Chkquat encounter statusKatherine Keith MD Work Phone: [facility]tart: 05-05-2024 End: 67-70-6699Vhlcfcihbuoz consultation with Serenity Keith MD Work Phone: spine InstituteStart: 05-05-2024 End: 11-76-5580Aypegwcjk to same day surgery centerKatherine Keith MD Work Phone: Spfzu InstituteComment on above:Neck surgeryStart: 05-05-2024 End: 96-83-4412mfzlllgrxeMzujsvk Pelle MD Work Phone: Spsxu InstituteComment on above:Cervical spondylosis with myelopathy (Primary Dx)Start: 04-06-2024 End: 18-37-5809dgliwbgoaiZsasqlh Bonus PA-C Work Phone: Spccy InstituteComment on above:Request for Medical recordsStart: 02-21-2024 End: 49-44-3033znppmjylzbSMDADZD M HOYFacility:[facility] Hospitalrt: 02-21-2024 End: 29-32-9766Fvwnplyefq hospital visit by physicianMri 7 Radio Main Q (I-Stat/1.5t/3t) Work Phone: MRI QComment on above:Spinal stenosis of cervical region [M48.02]Start: 02-03-2024 End: 75-68-7091Fkmbwa Cleo Loyd PA-C Work Phone: Spine InstituteComment on above:Spinal stenosis of cervical region (Primary Dx)Start: 01-13-2024 End: 35-21-1510Rhhosnd encounter procedureKatherine Keith MD Work Phone: spine InstituteComment on above:S/P lumbar fusion (Primary Dx); Right leg weaknessStart: 01-13-2024 End: 76-01-2787vodkaxrmgjAPTFQOW M HOYFacility:[facility] Centertart: 01-13-2024 End: 56-53-2490Ijrqvyz encounter procedureEmg 1 Neur Main (Max Weight: 1000) Work Phone: NeurologyStart: 01-13-2024 End: 17-33-2538senvizkaxbEIDLEEM M HOYNeurologyComment on above:EMGStart: 01-13-2024 End: 66-47-8225xwwubwteotLJVDYZH PELLEFacility:[facility] Centertart: 01-13-2024 End: 20-68-2127Pkfejblrar hospital visit by physicianMri 4 Radio Main Q (I-Stat/1.5t/3t) Work Phone: MRI QComment on above:Adverse effect of treatment, sequela [T88.9XXS]Acute low back pain, unspecified back pain laterality, unspecified whether sciatica present [M54.50]Start: 12-16-2023 End: 61-95-8543gwuhcputdyUngrmuz R NILLFacility:[facility] BellevueStart: 12-16-2023 End: 20-46-2030Kdspjef encounter procedureMichael R NILL [phone]-Vvvll General Surgery [place] Start: 12-05-2023 End: 26-99-5201Xyjjicdgd encounterKatherine Keith MD Work Phone: [facility] InstituteComment on above:Hand Glove Cleaner - OtherStart: 11-26-2023 End: 80-53-2514pdesjebhwdGA Ester Cain Work Phone: [facility] Work Phone: Start: 11-26-2023 End: 97-90-5287Tlhkcvmx ReferredMD Ester Cain Work Phone: [facility]-LAB Path Spec Javed HospStart: 11-26-2023 End: 00-95-8666ismkymqevnCbipftm R NILLFacility:CD:[id number]: 11-21-2023 End: 98-01-4410djagyckyghEkargxa Bonus PA-C Work Phone: [facility] InstituteComment on above:TestsStart: 11-12-2023 End: 32-06-9621Wsbedwd encounter procedureKatherine Keith MD Work Phone: [facility] InstituteComment on above:Adverse effect of treatment, sequela (Primary Dx); Acute low back pain, unspecified back pain laterality, unspecified whether sciatica presentStart: 11-12-2023 End: 11-73-0397Kzwyli-up encounterKatherine Keith MD Work Phone: [facility] InstituteComment on above:Follow up med request Start: 11-12-2023 End: 88-38-4070vjnfzwwbosMfvvivb Pelle MD Work Phone: Spqdq InstituteStart: 11-12-2023 End: 93-94-2593Wncofitjly hospital visit by physicianXr Main J1-4 Work Phone: RadiologyComment on above:History of laminectomy [Z98.890]Start: 11-11-2023 End: 07-79-4400xstlspnzcjPdgptwe Pelle MD Work Phone: spine InstituteStart: 11-11-2023 End: 28-46-2906Tcaleg-up encounterKatherine Keith MD Work Phone: Spbfa InstituteComment on above:Surgery followupStart: 11-11-2023 End: 38-15-1146Gkgolgh encounter procedureMichael R NILL [phone]-Bttoa General Surgery Javed Start: 11-05-2023 End: 68-80-2967Xhtrajkjw encounterCarvitaliy Bonus PA-C Work Phone: Spine InstituteComment on above:Refill Request Insurance AuthorizationStart: 10-29-2023 End: 99-08-5840MtmjhkXbwchhn Bonus PA-C Work Phone: Spmsp InstituteComment on above:Refill RequestStart: 04-84-3241gfwjsfmiqyYjjdizk Bonus PA-C Work Phone: Spine InstituteComment on above:Office numberStart: 82-90-6921lvoiufoutqIbdgaij Bonus PA-C Work Phone: Spkzq InstituteComment on above:MedicationStart: 10-21-2023 End: 13-84-3868tieuaxzlwrZgkejyi Bonus PA-C Work Phone: Spine InstituteComment on above:Right leg weakness (Primary Dx); S/P lumbar fusionFax numbersStart: 10-21-2023 End: 30-11-4332Trzpjzgqsaht consultation with patientCarissa Bonus PA-C Work Phone: Spine InstituteStart: 18-81-6558Blbzoxhuu encounter Katherine Keith MD Work Phone: NeurologyComment on above:medicationStart: 10-15-2023 RefillCarissa Bonus PA-C Work Phone: Spine InstituteComment on above:Refill RequestStart: 76-76-0239PR Get Medical AdviceKatherine Keith MD Work Phone: Spine InstituteComment on above:Script refillsStart: 10-02-2023 End: 38-49-1746Udktilatmx and management of inpatientKATHERINE KEITH Facility:[facility]art: 34-68-4725Ylwsxdlgf encounterDavid ([facility]) ChelnickResearchComment on above:ResearchStart: 09-30-2023 End: 01-39-1096Vfzdekm evaluation of patient and reportRaisa Tonya RNShonolulu InstituteComment on above:S/P lumbar spinal fusion (Primary Dx)Start: 09-30-2023 End: 26-98-9558sydllhekwgGHTNSTQ M HOYFacility:[facility] Centertart: 44-20-9353Sneihllur encounterJudi SIMMONSWSyuliana InstituteComment on above: CARE CONTINUUM ADVISOR ASSESSMENTStart: 49-23-9658VatonwCwkxsfv Bonus PA-C Work Phone: Spine InstituteComment on above:Refill RequestStart: 09-18-2023 End: 39-44-7372AjdmkeBbwcet J Melillo PA-C Work Phone: Spine InstituteComment on above:Refill RequestStart: 79-38-5041wtawahebxwZlhhloq Pelle MD Work Phone: Spine InstituteStart: 51-18-1682Tvqmjif encounter statusKatherine Keith MD Work Phone: [facility]tart: 36-90-8837ejlhzffgxmUfexbnz Pelle MD Work Phone: Spine InstituteComment on above:Legs swellingStart: 41-59-5919Wyadschts encounterKatherine Keith MD Work Phone: NeurologyComment on above:Patient UpdateStart: 92-31-9584XB Get Medical AdviceKatherine Keith MD Work Phone: Spine InstituteComment on above:Med refillStart: 36-44-5787qzicuvcjiiMzexpdn Pelle MD Work Phone: Spine InstituteComment on above:Meds at home discussionStart: 24-50-3151jbxcfbmbiwAtduofy Bonus PA-C Work Phone: Spdss InstituteComment on above:Trevor Mauro OliverStart: 48-28-8270Rezjeb-up encounterKatherine Keith MD Work Phone: Spine InstituteComment on above:Surgery followupStart: 09-07-2023 End: 98-81-7529Hmlviexgap and management of inpatientKEVIN ZIEGLER [facility]Start: 00-32-1585BbymzuFkkdpfh Bonus PA-C Work Phone: Medical RecordsComment on above:Refill RequestStart: 05-82-5703Izprwzhfq encounterKatherine Keith MD Work Phone: NeurologyComment on above:Patient UpdateStart: 60-13-3040QqohfaBrkzyme Bonus PA-C Work Phone: Spine InstituteComment on above:Refill RequestMed refillStart: 14-10-7859Mzzdvuqco to same day surgery centerKatherine Keith MD Work Phone: Spwwf InstituteComment on above:08/19/23 surgeryStart: 82-53-8723hlnrfrgwsqDxfawzt Pelle MD Work Phone: Spine InstituteStart: 12-49-2194Puwlngsep encounter Katherine Keith MD Work Phone: NeurologyComment on above:Medication ProblemStart: 08-29-2023 End: 60-76-5939ngpmscwyiaPsdiyxu Bonus PA-C Work Phone: Spkmk InstituteComment on above:Acute post-operative painStart: 08-29-2023 End: 67-39-6707Qvezecvqvarv consultation with Renee Loyd PA-C Work Phone: Spens InstituteStart: 78-21-5371BK Get Medical Advice Katherine Keith MD Work Phone: [facility] InstituteComment on above:Oxicodone medication refillStart: 08-22-2023 End: 56-62-2247Wqaexahegp and management of inpatientDOMCKINLEY CAIN [facility]: 08-19-2023 End: 23-49-1462Ofgemzbdls and management of inpatientKATHERINE KEITH Facility:[facility]art: 08-12-2023 End: 26-94-3848drrrmktcpqFAWGYWB PELLEFacility:[facility] Centertart: 69-67-5448Fizxwshzu encounterAshanti Vinay LSWShonolulu InstituteComment on above: Follow UpStart: 80-91-2452fxhoiklkeqKopej Wilbert De La Cruz RNInternal Doctor'S Hospital [facility]3Comment on above:Blood ManagementStart: 08-06-2023 End: 89-98-3543larhrzbatmVSAFESO M BONUSFacility:[facility] HospitalStart: 08-06-2023 Encounter for other preprocedural examinationKaiser Foundation Hospitaltart: 08-06-2023 End: 89-52-2377Xszgsaghg to establishmentPacc [address] Other Phone: Pre AnesthesiaStart: 08-06-2023 End: 87-77-4988Mdqtoeu encounter procedurePacc [address] Other Phone: Pre AnesthesiaComment on above:Pre-op exam (Primary Dx); Primary hypertension; SVT (supraventricular tachycardia) (HCC); History of penicillin allergyStart: 08-06-2023 End: 71-22-6602Ryqrqrfbaulhw examination donePacc [address] Other Phone: [facility] Work Phone: Start: 08-06-2023 End: 44-25-1145zjuxvhqileILLBWND PELLEFacility:[facility] HospitalStart: 08-06-2023 Encounter for other preprocedural examinationKaiser Foundation Hospitaltart: 41-84-6155Knaqjeedl to same day surgery centerKatherine Keith MD Work Phone: Spfit InstituteComment on above:Sooner Surgery Date Start: 30-66-4960htvfqasstwNwdxlep Pelle MD Work Phone: Spine InstituteStart: 08-90-6295Qujgfwvnx encounter Katherine Keith MD Work Phone: spine InstituteComment on above:Patient UpdateStart: 07-30-2023 End: 83-43-6725bbtkikjxwpXPPEVLX M ANTFacility:[facility] HospitalStart: 92-06-0898Alieezlqt encounterKatherine Keith MD Work Phone: spine InstituteComment on above:FormsStart: 07-11-2023 ambulatoryKatherine Keith MD Work Phone: spine InstituteStart: 54-92-2034Apcseph encounter statusKatherine Keith MD Work Phone: [facility] Hospitaltart: 99-24-3786Elcyuatfk to same day surgery Quan Keith MD Work Phone: Spjqq InstituteComment on above:Surgery dateStart: 95-86-4134laiyjzziuxYsomxua Pelle MD Work Phone: CCD [facility] MAINStart: 78-90-4691khrgtajyxwbren Keith MD Work Phone: ccf [facility] MAINStart: 06-11-2023 Documentation procedureKatherine Keith MD Work Phone: Spine InstituteComment on above:LTD DocumentsStart: 59-50-7133Vcijopybw encounterKatherine Keith MD Work Phone: Spine InstituteComment on above:FormsStart: 05-29-2023 Telephone encounterKatherine Keith MD Work Phone: Spine InstituteComment on above:Schedule SurgeryStart: 06-50-1874Zgxduewvz to same day surgery Quan Keith MD Work Phone: spine InstituteComment on above:Surgery dateStart: 57-91-8981qvokcgmjdrKmzquxv Pelle MD Work Phone: ccf [facility] MAINStart: 02-17-8534Egoepyzpq to same day surgery Quan Keith MD Work Phone: [facility] InstituteComment on above:Surgery dateStart: 91-85-4397qcvbgwtijiCeyubyn Pelle MD Work Phone: ccf [facility] MAINStart: 71-32-8595Nrxroyqzf to same day surgery Quan Keith MD Work Phone: [facility] InstituteComment on above:Surgery scheduleStart: 96-64-5334bqgdbrwsehOsuwsid Pelle MD Work Phone: ccf [facility] MAINStart: 92-54-0104sttmggxqickassandra VARGASEFacility:[facility]ertart: 05-04-2023 End: 40-33-4544Nronbwtlxq hospital visit by physicianCt [facility] (I-Stat) Work Phone: [facility] Radiology CT ScanComment on above: Chronic low back pain, unspecified back pain laterality, unspecified whether sciatica present [M54.50, G89.29]Start: 04-30-2023 End: 11-46-5328Qhmzkvjjmu hospital visit by physicianVaishnavi Ochoa E73JgebshkovLzmjpae on above:History of lumbar laminectomy for spinal cord decompression [Z98.890] Start: 04-30-2023 End: 99-61-5838Dwzyvot encounter Anup Keith MD Work Phone: [facility] InstituteComment on above:History of lumbar laminectomy for spinal cord decompression (Primary Dx); Degenerative scoliosis in adult patient; Chronic low back pain, unspecified back pain laterality, unspecified whether sciatica presentStart: 04-30-2023 End: 84-48-0051Vuqokshgfw hospital visit by physicianVaishnavi Ochoa J1-4 Work Phone: RadiologyComment on above:Spinal stenosis, lumbar region with neurogenic claudication [M48.062]Start: 41-70-0825Kgnfq abstracting Katherine Keith MD Work Phone: NeurologyStart: 12-05-2022 End: 31-58-1867Nsysmwe encounter procedureShae NigelMauri Kahlil [facility] Husam Start: 10-30-2022 End: 30-76-4306Igeuccn encounter procedureShae NigelMauri Sanchezakhil [facility] Javed start: 10-28-2022 End: 95-48-1401qaseueuggtXD Ester Cain Work Phone: [facility] Work Phone: Start: 10-28-2022 End: 15-51-7034Srnmoxq encounter procedureMD Ester Cain Work Phone: [facility] Work Phone: Start: 09-04-2022 End: 48-15-0306Lbbiuet encounter procedureShae NigelMauri Sanchezakhil [facility] [place] start: 05-21-2022 End: 87-75-2220Vklcmwl encounter procedureMichael R NILL General Surgery Nill/Said [place] Start: 05-07-2022 End: 76-09-0585Zqylkur encounter procedureMichael R NILL General Surgery Nill/Said [place] Start: 81-15-6796kgovjxrmocOkDr. Ester Cain Facility:[id number]: 78-55-2766Zvxfiuhjr for preprocedural laboratory examinationDR CAMRYN DotsonSalem City Hospitaltart: 04-11-2022 End: 18-65-5928Sofelfyij for preprocedural laboratory examinationDR WILTON NICHOLEFacility:U1Plgoz: 04-11-2022 End: 89-39-8894aimympthefSF WILTON Michael SLOANERFacility:C4Galtq: 04-03-2022 End: 08-10-5555Lzddtec encounter procedureMichael R NILL General Surgery Nill/Said [place] Start: 03-16-2022 End: 16-31-4359cylecgzuvqFszpsw PolicaroFacility:C4Vzfvw: 03-06-2022 End: 37-11-9777bwergmegzfCA ESTER HOY .Facility:H1Hjmfi: 01-18-2022 End: 06-07-6525avuldfviqmPA ESTER HOY .Facility:G6Cnurp: 44-97-9883Nyapzbwcz for general adult medical examination without abnormal findingsDR ESTER HOY . [facility]Start: 01-01-2022 End: 60-27-2280xsgjnwlgwyIC ESTER HOY .Facility:G3Etibe: 12-28-2021 End: 06-41-2903kfwyqkictyTX ESTER HOY .Facility:Z1Cwpwn: 12-28-2021 End: 20-29-7139Bkjrnwyrh for general adult medical examination without abnormal findingsDR ESTER HOY .Facility:A6Tmruh: 07-31-2020 End: 49-63-9789cnbfwlkppiGJZFYUE HOYFacility:[facility] Procedures DateProcedureProcedure DetailPerforming ClinicianStart: 68-40-8764Xuodx volume recorder pneumoplethysmographyEster Cain MD Work Phone: Start: 14-98-4260O-reactive proteinEugene Michael Gray DPM Work Phone: start: 94-43-3876Osaxxkqn blood count with white cell differential, automatedEugene Michael Gray DPM Work Phone: start: 71-86-4851Hkihmreyjfqyv metabolic panelEugene Michael Gray DPM Work Phone: start: 94-06-9505Xwafimsm screenDOUGLAS HOYComment on above:Order Comment: Specimen Type: BLOOD SPECIMENOrdering Facility: [facility] Address:[address] [place], [place] [address]Performed By: #### [id number] ####CC MAIN BLOOD BANKCLIA [id number] [address] AMERICAStart: 52-16-9288Myk spinal canal cervical w/o contrast matrlCarissa Karina PA-C Work Phone: Start: 47-12-3677Nkkct conduction studies 5-6 studies Meenakshi Morin MD Work Phone: Start: 02-78-7719Eq lumbar spine w/o contrast material Meenakshi Morin MD Work Phone: Start: 25-77-5260Ymu spinal canal lumbar w/o contrast materialMeenakshi Morin MD Work Phone: Start: 12-98-3331AxwixtodvvgNweuuo Kubitz DPM Work Phone: start: 41-27-1773KzklwygpxnfDxtfeml NILL Start: 23-20-7397Sauji spine lumbosacral 2/3 views Alfonso Karina PA-C Work Phone: Start: 31-96-2557Yxwzqjsm screenDOUGLAS HOYComment on above:Order Comment: Specimen Type: BLOOD SPECIMENOrdering Facility: [facility] Address:[address] [place], [place] [address]Performed By: #### TSCR ####CC MAIN BLOOD BANKCLIA [id number] [address] AMERICAStart: 90-27-5317Rkdxdgcbwjj spinal fusionMichael NILL Start: 59-11-8656Egc facetectomy&foramtomy 1 sgm ea crv thrc/lmbrMichael NILL Start: 57-13-6831Ahvmzisn screenDOMJON VARGASEComment on above:Order Comment: Specimen Type: BLOOD SPECIMEN Ordering Facility: [facility] Address: [address] [place], [place] [address]Lhepggjel By: #### [id number] #### ALEJANDRO BLOOD BANK CLIA [id number] [address] [place] [address] [place]Start: 64-18-3352Yod routine ecg w/least 12 lds i&r onlyRachel Thomascik PA-C Work Phone: Start: 72-04-7459Tg lumbar spine w/o contrast material Katherine Keith MD Work Phone: Start: 16-90-7677Tmmhz entir thrc lmbr crv sac spi w/skull 2/3 vwKatherine Keith MD Work Phone: Start: 88-24-3048Ucppm spine lumbosacral minimum 4 viewsCarissa Karina PA-C Work Phone: Start: 99-62-0934Oqauvkepohjob needle biopsy of prostateKathy Lue Start: 10-33-6727CX prostate wo/w conMD Ester Cain Work Phone: Start: 95-97-3535Aepeangrdkix repair of obstructed hernia of anterior abdominal wallMichael NILL Start: 75-12-8212WKE screeningFranco PolicaroComment on above:Performed By: #### PSASC, VITAD #### [facility] [address] [place] [address] Dr. aMx PeckStart: 88-98-6270ZwmjykxisviWqpxejk NILL Start: 48-77-3558Dokm structure, excluding neck (body structure)Camryn AGUSTIN Start: 82-05-3821Mwfj structure, excluding neck (body structure)Camryn NILL Start: 89-10-1846UziravfbkggbqfyLuqqulz NILL Cervical laminectomyMichael NILL Excision of lesion of skinMichael NILL Comment on above:spiritism and shave leson left neck Extraction of cataractMichael NILL History of cholecystectomyS/P cholecystectomyDouglas Ant JERNIGAN Work Phone: History of excision of lamina of lumbar vertebra for decompression of spinal cordHistory of lumbar laminectomy for spinal cord decompressionXr Z18Bgfbfgy of excision of lamina of lumbar vertebra for decompression of spinal cordHistory of lumbar laminectomy for spinal cord decompressionKatherine Keith MD Work Phone: LaminectomyMichael NILL Comment on above:x 3-- 2019, 2013, 2000Lumbar spinal fusionMichael NILL Revision of fusion of lumbar spineMichael NILL Plan of Treatment DateCare ActivityDetailAuthorStart: 42-14-9505Ggadekaqa for malignant neoplasm of colonNOMS HealthcareStart: 43-05-9878Hdmrpwna ScreeningDiabetes Screening [facility]tart: 93-16-1071Bbmoirhd ScreeningDiabetes ScreeningKeenan Private Hospitaltart: 73-34-9499Qlbnffow ScreeningDiabetes ScreeningReg[facility] Start: 28-09-2487Szgweiok specific antigen measurementProstate Cancer Screening DiscussionKeenan Private Hospitaltart: 29-52-2307Gteokgxs ScreeningDiabetes Screening [facility] Hospitaltart: 32-52-7540Welsmeyf ScreeningDiabetes ScreeningKeenan Private Hospitaltart: 71-78-2412Zwvemkpi ScreeningDiabetes ScreeningRegency Hospital [facility] Start: 54-69-8959Umjcrzvs ScreeningDiabetes ScreeningKeenan Private Hospitaltart: 13-78-4629Qnnahfao ScreeningDiabetes ScreeningKeenan Private Hospitaltart: 11-08-2024 Influenza vaccinationKeenan Private Hospitaltart: 10-06-2024 End: 58-53-5727Uogoofl encounter zkoipyqne23/30/2025 4:15 PM EDT Office Visit JUAREZMarshal MirelesHusam Podiatry [address] [place] [id number] Mahamed Gray, SINDY [address] [place] [address] ArrivedNOMS Owusu PodiatryComment on above:ArrivedStart: 58-28-2863Ejomg volume recorder pneumoplethysmography [facility] Hospitaltart: 09-17-2024 End: 25-28-3462NI.doppler Extremity arteries - bilateral for physiologic artery study at rest and with exerciseVASC US PVR WITH MARCIAL Imaging High Priority Neurogenic ulcer, 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) PAD(peripheral artery disease) Absent pulse Expected: 09/17/2024 (Approximate), Expires: 09/17/2025 [facility] Work Phone: comment on above:Expected: 09/17/2024 (Approximate), Expires: 09/17/2025Start: 09-17-2024 End: 81-30-3190Mruzcqt encounter tiynobrcr59/11/2025 10:30 AM EDT Office Visit [facility] [address] [place] [id number] Mahamed Gray DPNigel [address] [place] [address] ArrivedMELISSA PAUL PODIATRYComment on above:ArrivedStart: 07-15-2024 End: 02-64-7982Wmdbkgaqm to same day surgery hagmeh5207/15/2024 9:00 AM EDT [facility] [facility] [address] [place] [address] [address] [place], [place] [id number] [phone] Alfonso Loyd PA-C [address] [place] [address] POST-OP 6-8WKSSpine SurgeryComment on above:POST-OP 6-8WKSStart: 07-09-2024 End: 23-60-7675Psrracb encounter procedureRadiologyComment on above:POST-OP Elevated troponin after spine surgeryStart: 06-29-2024 End: 10-18-1092igckkwnmde32/22/2025 9:30 AM EDT Distance [facility] [address] [place] [address] Alfonso Loyd PA-C [address] [place] [address] POST-2WKS Spine InstituteComment on above:POST-2WKSStart: 06-16-2024 End: 90-59-8313Vgicqto encounter kmgtdcauh98/09/2025 10:00 AM EDT Office [facility] [address] [place] [address] Staple RemovalSpine InstituteComment on above:Staple RemovalStart: 06-16-2024 End: 50-84-6989iqihckjwfp57/09/2025 9:00 AM EDT [facility] [address] [address] Alfonso Loyd PA-C [address] [place] [address] POST-2WKS Spine InstituteComment on above:POST-WKSStart: 06-02-2024 End: 12-09-1400Rmlskdapk to same day surgery centerSpine InstituteComment on above:Schedule surgeryCERVICAL LAMINOPLASTY WITH DECOMPRESSION 2 OR MORE SEGMENTSStart: 06-02-2024 End: 15-50-7358Tjgknxnpk to same day surgery lzawss8606/02/2024 8:30 AM EDT - 06/02/2024 11:27 AM EDT Surgery Admitting [address] [place] [address] Katherine Keith MD [address] [place] [address] CERVICAL LAMINOPLASTY WITH DECOMPRESSION 2 OR MORE SEGMENTS AdmittingComment on above:CERVICAL LAMINOPLASTY WITH DECOMPRESSION 2 OR MORE SEGMENTSStart: 06-02-2024 End: 74-14-7047Ylngh cervical w/dcmprn spi cord 2/> vert seg MAIN PAVILION Start: 06-02-2024 End: 58-98-3063Oruhvdfqnx cervical dcmprn cord 2/> seg rcnstCommunity [facility] Start: 26-58-2775Mxpmhcgcwi hospital visit by physicianAdmittingComment on above:Spinal stenosis of cervical region [M48.02]Start: 05-12-2024 End: 75-27-0811OFEWQPHUGDOTZM AUREUS & MRSA SCREEN, PCR, NASALSTAPHYLOCOCCUS AUREUS & MRSA SCREEN, PCR, NASAL Lab Routine Pre-op testing Expected: 05/12/2024 (Approximate), Expires: 06/02/2024leveland ClinicComment on above:Expected: 05/12/2024 (Approximate), Expires: 06/02/2024Start: 05-12-2024 End: 70-14-5123Ymsyyya encounter ihwsxkbtd84/05/2025 11:30 AM EST Office [facility] [address] [place] [address] Katherine Keith MD [address] [place] [address] PRE-OP CLEARANCESpine InstituteComment on above:PRE-OP CLEARANCEStart: 05-12-2024 End: 81-75-1771Uldrkjv encounter procedureAdmittingComment on above:PRE-OP CLEARANCEStart: 05-12-2024 End: 71-67-3283Mzfomyezhx gzthpkuwxciy94/05/2025 9:20 AM EST PAT Pre Anesthesia [address] [place] [address] 9, [address] [place] [address] PRE-OP CLEARANCEPre AnesthesiaComment on above:PRE-OP CLEARANCEStart: 05-10-2024 End: 67-35-8279Jciyfao encounter lkpefjnij79/03/2025 10:00 AM EST Office Visit Financial Clearance Phone Screening [place] [address] REGISTRATIONFinancial Clearance Phone ScreeningComment on above:REGISTRATIONStart: 05-06-2024 End: 47-41-7834GVZ W Auto Differential panel - BloodCOMPLETE BLOOD COUNT AND DIFFERENTIAL Lab Routine Iron deficiency anemia, unspecified iron deficiency anemia type Expected: 05/06/2024 (Approximate), Expires: 06/02/2024leveland ClinicComment on above:Expected: 05/06/2024 (Approximate), Expires: 06/02/2024 Start: 05-06-2024 End: 43-56-3383Oerxwbep [Mass/volume] in Serum or PlasmaFERRITIN Lab Routine Iron deficiency anemia, unspecified iron deficiency anemia type Expected: 05/06 (Approximate), Expires: 06/02/2024leveland ClinicComment on above: Expected: 05/06/2024 (Approximate), Expires: 06/02/2024Start: 05-06-2024 End: 99-63-9008Rsyy and Iron binding capacity panel - Serum or PlasmaIRON AND TIBC Lab Routine Iron deficiency anemia, unspecified iron deficiency anemia type Expected:05/06/2024 (Approximate), Expires: 06/02/2024[facility] Work Phone: Comment on above:Expected: 05/06/2024 (Approximate), Expires: 06/02/2024Start: 36-63-6253Ubxziku Directive DiscussionAdvance Directive DiscussionCaldwell ClinicStart: 01-13-2024 End: 12-98-8420Zohruef encounter djhhfvydh50/05/2024 1:40 PM EST Office [facility] [address] [place] [phone] Katherine Keith MD [address] [place] [address] f/u with providerSpine InstituteComment on above:f/u with providerStart: 01-13-2024 End: 99-95-1443wmpuotembi72/05/2024 9:30 AM EST Procedure Neurology [address] [place] [address] Adverse effect of treatment, sequela [T88.9XXS]NeurologyComment on above:Adverse effect of treatment, sequela [T88.9XXS]Start: 01-13-2024 End: 07-31-5906Pukzsgc encounter vewcobzcr90/05/2024 8:30 AM EST Appointment MRI Q [address] [address] MRI LUMBAR SPINE WO IVCON MRI QComment on above:MRI LUMBAR SPINE WO IVCONStart: 01-13-2024 End: 62-98-7661Huvosgq encounter procedureMRI QComment on above:MRI THORACIC SPINE WO IVCONAcute low back pain, unspecified back pain laterality, unspecified whether sciatica present [M54.50]Start: 11-12-2023 End: 23-47-7681Qdviwew encounter gxhmzuzkf89/04/2024 2:20 PM EDT Office [facility] [address] [place] [address] Katherine Keith MD [address] [place] [address] post op in personShonolulu InstituteComment on above:post op in personStart: 11-12-2023 End: 96-34-6833Qtwkttb encounter cnxznaysi48/04/2024 1:10 PM EDT Appointment Radiology [address] [place] [address] post op lumbar RadiologyComment on above:post op lumbarStart: 49-13-4491Kddkm-19 Vaccine ( season)Covid-19 Vaccine ( season)[facility] ClinicStart: 34-17-4450Iqhmt-19 Vaccine ( season)Covid-19 Vaccine ( season)[facility]: 32-58-5687Dusieeczi vaccinationRegency Hospital Toledo Start: 10-21-2023 End: 90-18-5962wvqkzsqtod72/13/2024 8:50 AM EDT [facility] [address] [place] [address] Alfonso Loyd PA-C [address] [place] [address] MYC Postop Spine InstituteComment on above:MYC PostopStart: 10-14-2023 End: 17-44-2535Dlrdtnu encounter procedureRadiologyComment on above:post op lumbarpost op in personStart: 10-08-2023 End: 14-80-6329Sbcjxqk encounter fvqmzdiiw61/31/2024 12:40 PM EDT Office Visit [facility] [address] [place] [address] Katherine Keith MD [address] [place] [address] post op in personSpine InstituteComment on above:post op in personStart: 10-08-2023 End: 96-46-4223Czfltuh encounter aiderskuw12/31/2024 11:30 AM EDT Appointment Radiology [address] [place] [address] post op lumbar RadiologyComment on above:post op lumbarStart: 10-02-2023 End: 23-93-2627Cxxmgpync to same day surgery centerAdmittingComment on above: EXPLORATION OF SPINAL FUSIONStart: 10-02-2023 End: 32-55-4429Zgzkjxynniq spinal fusion MAIN PAVILIONStart: 10-02-2023 End: 10-56-1081Obv facetectomy & foramotomy 1 segment lumbar MAIN PAVILION Start: 10-02-2023 End: 22-64-0260Knn facetectomy&foramtomy 1 sgm ea crv thrc/lmbr MAIN PAVILION Start: 10-02-2023 End: 55-14-4487Yqsqcqbhm segmental instrumentation 3-6 vrt [facility] MAIN PAVILION Start: 51-45-9306Wsronypuat hospital visit by physicianAdmittingComment on above:S/P lumbar spinal fusion [Z98.1]Start: 09-30-2023 End: 46-43-6013Etqxqok evaluation of patient and hfptyh2109/30/2023 10:00 AM EDT Nurse Visit [facility] [address] [place], [place] [phone] Melody Castaneda, PATRICIA Phone EducationSpine InstituteComment on above:Phone Education Start: 09-18-2023 End: 25-74-2414Ayyaeyt encounter xhohgeouz25/11/2024 2:00 PM EDT Office Visit Financial Clearance Phone Screening [place] [address] RegiFinancial Clearance Phone ScreeningComment on above:RegiStart: 09-17-2023 End: 25-08-5039VERVTAXYQXTXRY AUREUS & MRSA SCREEN, PCR, NASALSTAPHYLOCOCCUS AUREUS & MRSA SCREEN, PCR, NASAL Lab Routine S/P lumbar spinal fusion Pre-op testing Expected: 09/17/2023, Expires: 12/17/2023[facility] Work Phone: Comment on above:Expected: 09/17/2023, Expires: 12/17/2023Start: 09-16-2023 End: 52-41-6423pbshbiyyra84/09/2024 10:10 AM EDT [facility] [address] [place], [place] [phone] Alfonso Loyd PA-C [address] [place] [address] 2 week post op( virtual visit)Spine InstituteComment on above:2 week post op( virtual visit)Start: 09-02-2023 End: 57-43-7400Erhtgksfz to same day surgery fbhzrr8809/02/2023 7:30 AM EDT - 09/02/2023 2:00 PM EDT Surgery Admitting [address] [place] [address] Katherine Keith MD [address] [place] [address] LATLUMBAR SPINE FUSIONAdmittingComment on above:LAT LUMBAR SPINE FUSIONStart: 09-02-2023 End: 23-43-3224Jagiuqjuqqd lat extracavitary ea addl thrc/lmbrLAT THOR/LUMB, ADD'L SEG History of laminectomy Degenerative scoliosis in adult patient Pre-op testing 09/02/2023 7:30 AM [facility] MA[facility] PAVILIONStart: 09-02-2023 End: 98-92-5152Iuuksnesqkc lateral extracavitary lumbarLAT LUMBAR SPINE FUSION History of laminectomy Degenerative scoliosis in adult patient Pre-op testing 09/02/2023 7:30 AM [facility] MAIN PAVILIONStart: 09-02-2023 End: 36-41-2519Umdr biomchn dev intervertebral dsc spc w/arthrdINSERTION INTERBODY BIOMED DEVICE(S) W/ANT INSTR ANCHORING TO DISC SPACE W/INTERBODY FUSION,EA INTERSPACE History of laminectomy Degenerative scoliosis in adult patient Pre-op testing 09/02/2023 7:30AM [facility] MAIN PAVILIONStart: 09-02-2023 End: 79-63-5430Eqzecqump non-segmental instrumentationMINIMALLY INVASIVE POSTERIOR NONSEGMENTAL INSTRUMENTATION History of laminectomy Degenerative scoliosis in adult patient Pre-op testing 09/02/2023 7:30 AM [facility] Start: 98-45-4499Nymdjbbreb hospital visit by nwmuznsab33/25/2024 7:30 AM EDT Hospital Encounter Admitting [address] [place] [address] Katherine Keith MD [address] [place] [address] History of laminectomy [Z98.890]AdmittingComment on above:History of laminectomy [Z98.890]Start: 08-29-2023 End: 76-56-9986hatxvhwodj76/21/2024 8:30 AM EDT [facility] [address] [phone] Alfonso Loyd PA-C [address] [place] [address] 2 week post op( virtual visit)Spine InstituteComment on above:2 week post op( virtual visit)Start: 08-28-2023 End: 79-79-4405rmydctxyfs79/20/2024 10:00 AM EDT [facility] Patient Outreach [facility] [address] [place] [address] Provider, Nurse Adolfo Keating [address] [place] [address] Nurse THAPApine InstituteComment on above:Nurse ROBERTO Start: 08-19-2023 End: 76-50-0750Twunonubv to same day surgery uoxqnm5008/19/2023 7:30 AM EDT - 08/19/2023 2:00 PM EDT Surgery Admitting [address] [place] [address] Katherine Keith MD [address] [place] [address] LATLUMBAR SPINE FUSIONAdmittingComment on above:LAT LUMBAR SPINE FUSIONStart: 08-19-2023 End: 04-18-6959Zqlsrwlpenp lat extracavitary ea addl thrc/lmbrLAT THOR/LUMB, ADD'L SEG History of laminectomy Degenerative scoliosis in adult patient Pre-op testing 08/19/2023 7:30 AM [facility] MA[facility] PAVILIONStart: 08-19-2023 End: 61-26-4308Dqdjrsidvsh lateral extracavitary lumbarLAT LUMBAR SPINE FUSION History of laminectomy Degenerative scoliosis in adult patient Pre-op testing 08/19/2023 7:30 AM [facility] MA[facility] PAVILIONStart: 08-19-2023 End: 73-05-0355Mfph biomchn dev intervertebral dsc spc w/arthrdINSERTION INTERBODY BIOMED DEVICE(S) W/ANT INSTR ANCHORING TO DISC SPACE W/INTERBODY FUSION,EA INTERSPACE History of laminectomy Degenerative scoliosis in adult patient Pre-op testing 08/19/2023 7:30[facility] PAVILIONStart: 08-19-2023 End: 98-79-1886Bmncrzbil non-segmental instrumentationMINIMALLY INVASIVE POSTERIOR NONSEGMENTAL INSTRUMENTATION History of laminectomy Degenerative scoliosis in adult patient Pre-op testing 08/19/2023 7:30 AM [facility] Start: 76-44-0011Ecmmlgvrpa hospital visit by tmmouvxql44/11/2024 7:30 AM EDT Hospital Encounter Admitting [address] [place] [address] Katherine Keith MD [address] [place] [address] History of laminectomy [Z98.890]AdmittingComment on above:History of laminectomy [Z98.890]Start: 08-12-2023 End: 04-43-5384pbzlcbssui70/04/2024 2:00 PM EDT [facility] [address] [place] [address] Provider, Nurse Adolfo Keating [address] [place] [address] Nurse Jose InstituteComment on above:Nurse ALANIStart: 08-11-2023 End: 42-65-2689NAH W Auto Differential panel - BloodCOMPLETE BLOOD COUNT AND DIFFERENTIAL Lab Routine History of laminectomy Degenerative scoliosis in adult patient Pre-op testing Iron deficiency anemia, unspecified iron deficiency anemia type Expected: 08/11/2023 (Approximate), Expires: 11/10/2023leveland ClinicComment on above:Expected: 08/11/2023 (Approximate), Expires: 11/10/2023 Start: 08-11-2023 End: 18-89-6161Xwcwywhz [Mass/volume] in Serum or PlasmaFERRITIN Lab Routine History of laminectomy Degenerative scoliosis in adult patient Pre-op testing I jessica deficiency anemia, unspecified iron deficiency anemia type Expected: 08/11/2023 (Approximate), Expires: 11/10/2023leveland ClinicComment on above: Expected: 08/11/2023 (Approximate), Expires: 11/10/2023Start: 08-11-2023 End: 35-41-4213Ojyk and Iron binding capacity panel - Serum or PlasmaIRON AND TIBC Lab Routine History of laminectomy Degenerative scoliosis in adult patient Pre-op testing Iron deficiency anemia, unspecified iron deficiency anemia type Expected: 08/11/2023 (Approximate), Expires: [facility] Work Phone: Comment on above:Expected: 08/11/2023 (Approximate), Expires: 11/10/2023Start: 08-11-2023 End: 38-48-2556VRVBPHXHZDFIZQ AUREUS & MRSA SCREEN, PCR, NASALSTAPHYLOCOCCUS AUREUS & MRSA SCREEN, PCR, NASAL Lab Routine History of laminectomy Degenerative scoliosis in adult patient Pre-op testing Expected: 08/11/2023 (Approximate), Expires: 11/10/2023levelf[facility] ClinicComment on above:Expected: 08/11/2023 (Approximate), Expires: 11/10/2023Start: 08-06-2023 End: 12-53-0998Atpzwez encounter procedurePre AnesthesiaComment on above:pre op pre op labsStart: 07-30-2023 End: 17-77-3605Dxymbtx encounter hxannnzxp30/22/2024 10:30 AM EDT Office [place] [address] pre op gcFinancial Clearance Phone ScreeningComment on above:pre op gcStart: 38-22-0889Qaorqbt Directive Discussion Advance Directive DiscussionKeenan Private Hospitaltart: 03-60-6087Moueroopog Health ScreeningBehavioral Health ScreeningKeenan Private Hospitaltart: 88-55-9486Edjvxxbxrb AssessmentDepression AssessmentKeenan Private Hospitaltart: 49-89-3880Fydoh-19 Vaccine ( season)Covid-19 Vaccine ( season)[facility]: 98-51-2180Ggalvfdrm vaccinationInfluenza Vaccine (#1)[facility] Hospitalt[facility]: 03-17-8246Nnhuqyzrbqzf Vaccine: 65+ (1 of 1 - PCV)Pneumococcal Vaccine: 65+ (1 of 1 - PCV)[facility]: 94-89-3085NVF Vaccine (1 - 1-dose 60+ series) RSV Vaccine (1 - 1-dose 60+ series)[facility] Hospital[facility]: 44-40-4810AGT Vaccine (1 - Risk 60-74 years 1-dose series)RSV Vaccine (1 - Risk 60-74 years 1-dose series)[facility]: 36-40-3213Dihwcusg specific antigen measurement Prostate Cancer Screening DiscussionKeenan Private Hospitaltart: 2007 Pneumococcal Vaccine: 50+ (1 of 1 - PCV)Pneumococcal Vaccine: 50+ (1 of 1 - PCV) [facility]: 55-91-9702Kxtfpkxbhnab Vaccine: 65+ Years (1 of 1 - PCV) Pneumococcal Vaccine: 65+ Years (1 of 1 - PCV)[facility]OM[facility] HealthcareStart: 2007 Shingrix Vaccine (1 of 2)Shingrix Vaccine (1 of 2)[facility] Hospital[facility]: 44-28-4710Qmuvntlo ScreeningDiabetes ScreeningKeenan Private Hospitaltart: 2002 Screening for malignant neoplasm of colonKeenan Private Hospitaltart: 07-53-5811Crnlm panelLipid ScreeningKeenan Private Hospitaltart: 93-04-3208Agrbn microalbumin profile DTaP,Tdap,Td Vaccine (1 - Tdap)[facility]: 18-33-6269Dqglhx PCP Team Chronic Disease VisitAnnual PCP Team Chronic Disease VisitKeenan Private Hospitaltart: 35-28-7477Caozdwf ScreeningAnxiety ScreeningKeenan Private Hospitaltart: 80-81-3649LG Controlled (<130/80)BP Controlled (<130/80)[facility]: 1975 Depression ScreeningDepression ScreeningKeenan Private Hospitaltart: 1975 Hepatitis C screeningHepatitis C ScreeningKeenan Private Hospitaltart: 1957 Covid-19 Vaccine (#1)Covid-19 Vaccine (#1)[facility]: 1957 Screening for malignant neoplasm of colonNOMS HealthcareCT Cervical spine WO contrastCT CERVICAL SPINE WO IVCON Radiology Routine Spinal stenosis of cervical region 05/14/2024 9:43 AM [facility] Work Phone: End: 59-69-0699AT Lumbar spine WO contrastCT LUMBAR SPINE WO IVCON Radiology Routine Acute low back pain, unspecified back pain laterality, unspecified whether sciatica present 1 Occurrences starting 11/12/2023 until 12/11/2024 [facility]edoComment on above:1 Occurrences starting 11/12/2023 until 12/11/2024ECG COMPLETEECG COMPLETE ECG Routine Pre-op exam 08/06/2023 8:48 AM [facility] Work Phone: End: 62-01-4489XOA COMPLETEECG COMPLETE ECG Routine SVT (supraventricular tachycardia) (HCC) Elevated troponin 1 Occurrences starting 06/08/[address] [place] [address] Work Phone: comment on above:1 Occurrences starting 06/08/2024 until 06/08/2025 End: 79-79-6242TSF(NEURO/NI)EMG(NEURO/NI) EMG Routine History of lumbar laminectomy for spinal cord decompression Degenerative scoliosis in adult patient Chronic low back pain, unspecified back pain laterality, unspecified whether sciatica present 1 Occurrences starting 04/30/2023 until 04/30/2024 [facility] Work Phone: Comment on above:1 Occurrences starting 04/30/2023 until 04/30/2024 End: 10-34-2702MNR(NEURO/NI)EMG(NEURO/NI) EMG Routine Adverse effect of treatment, sequela 1 Occurrences starting 11/12/[address] [place], [place] [address]Comment on above:1 Occurrences starting 11/12/2023 until 11/11/2024 End: 62-15-1401IV Cervical spine WO contrastMRI CERVICAL SPINE WO IVCON Radiology Routine Spinal stenosis of cervical region 1 Occurrences starting 02/03/[address] [place] [address] Work Phone: Comment on above:1 Occurrences starting 02/03/2024 until 03/04/2025 End: 16-72-3516IJ Lumbar spine WO contrastMRI LUMBAR SPINE WO IVCON Radiology Routine Adverse effect of treatment, sequela 1 Occurrences starting 11/12/2023 until 5CTrinity Health SystemComment on above:1 Occurrences starting 11/12/2023 until 12/11/2024 End: 22-97-4595LH Thoracic spine WO contrastMRI THORACIC SPINE WO IVCON Radiology Routine Adverse effect of treatment, sequela 1 Occurrences starting 11/12/[address] [place] [address] Work Phone: Comment on above:1 Occurrences starting 11/12/2023 until 12/11/2024 End: 34-72-0034Npdhu spine lumbosacral minimum 4 viewsXR LUMBAR MOTION 4V AP/LAT/ FLEX/EXT Radiology Routine Spinal stenosis, lumbar region with neurogeni c claudication 1 Occurrences starting 03/21/2023 until 5[facility] [employer] Work Phone: Comment on above:1 Occurrences starting 03/21/2023 until 04/19/2024 End: 76-68-7843MX Cervical spine AP and LateralXR CERV GENERAL 2V AP/LAT Radiology Routine Spinal stenosis of cervical region 1 Occurrences starting 05/06/2024 until 6C[facility] ClinicComment on above:1 Occurrences starting 05/06/2024 until 06/05/2025 End: 31-93-2681PK Cervical spine AP and LateralXR CERV GENERAL 2V AP/LAT Radiology Routine S/P cervical spinal fusion 1 Occurrences starting 06/29/2024 until 07/[facility]/20[facility] Work Phone: Comment on above:1 Occurrences starting 06/29/2024 until 07/29/2025 End: 55-43-3130XU Lumbar spine AP and LateralXR LUMBAR LIMITED 2V AP/LAT Radiology Routine History of laminectomy Degenerative scoliosis in adult patient 1 Occurrences starting 07/11/2023 until 08/10/2024leveland ClinicComment on above:1 Occurrences starting 07/11/2023 until 08/10/2024[facility] Immunizations Immunization DateImmunizationNotesCare PvyofhxtEpcfljfs73-25-1785hclnweffe virus vaccine, unspecified formulationKathy Lue [facility]10-22-2021SARS-CoV-2 (COVID-19) mRNA BNT-162b2 vaxMichael NILL [phone]-DhezmToledo Hospital [facility] [place] 39-02-5301USUG-CoV-2 (COVID-19) mRNA BNT-162b2 vaxMichael NILL [phone]-NmshcToledo Hospital [facility] [place] 60-69-9878CYDP-CoV-2 (COVID-19) mRNA BNT-162b2 vaxMichael NILL [phone]-TeedaToledo Hospital [facility] [place] Comment on above:Result Comment: 2022-03-29: [id number]: Highlighted row has not occurred!05-95-2881dasamnzob virus vaccine, unspecified formulationMichael NILL General Surgery BellevueNEGATED: Highlighted row has not occurred!91-45-4397atldelfkn virus vaccine, live, attenuated, for intranasal useMichael NILL [facility] Payers DatePayer CategoryPayerPolicy [id number] Health [id number] Health [id number] 2.16.840.1.175834.3.579.2.647 [id number] 2.16.840.1.575800.3.57[id number] 2.16.840.1.272644.3.579.[id number] 2.16.840.1.215862.3.579.2.56704-68-9777Zmsckrh4704511 2.16.840.1.288648.3.579.2.27969-02-5704Fmdpyhg8806914 2.16.840.1.699310.3.57[id number] 2.16.840.1.294492.3.579.[id number] 2.16.840.1.280247.3.579.2.21471-17-4046Gjbcyki3028374 2.16.840.1.307720.3.57[id number] 2.16.840.1.115806.3.579.[id number] 2.16.840.1.434077.3.579.2.34043-63-1043Kqxqoxh22013214 2.16.840.1.694593.3.57[id number] 2.16.840.1.635557.3.579.2.727UnknownRegular [id number] 75btrx92-294z-1390-0spl-[id number] 2.16.840.1.299[id number] 2.16.840.1.296332.3.579.2.531 Social History DateTypeDetailFacilityStart: 04-03-2022 End: 79-31-0493Pkaotmb smoking statusNever smoked tobacco (finding)General Surgery BellevueTobacco smoking statusNeverGeneral Surgery BellevueStart: 04-30-2023 End: 66-92-5976Pvw [facility] At [facility]: 88-14-9113Qhz [facility]: [facility] End: 61-56-8608Texfgwm intakeNot AskedKeenan Private Hospitaltart: 26-35-0427Ixzlxa identityIdentifies as male gender (finding)[facility]: 03-20-2023 Sexual orientationHeterosexual (finding)[facility]: 42-82-9924Cvvaphc use and exposureFormer smokeless tobacco userRegency Hospital Toledo End: 71-78-5161Clbgmca of tobacco useChews TobaccoKeenan Private Hospitaltart: 04-30-2023 End: 36-23-7979Csmowmz of Social functionKeenan Private Hospitaltart: 08-06-2023 End: 47-25-7614Rxykuus intakeLifetime non-drinker (finding)[facility] the electric, gas, oil, or water company threatened to shut off services in your home in past 12MoNoClKettering Health Dayton(I/We) worried whether (my/our) food would run out before (I/we) got money to buy more.Never trueRegency Hospital ToledoTobacco smoking status NHISTobacco smoking consumption unknownNOWV HealthcareStart: 51-86-7939Heq assigned at birthNot on fileJORDAN VALLEY MEDICAL CENTER HealthcareStart: 28-99-7615Zrs Male (finding)[facility] Hospitaltart: 18-37-3573Cqsmffa use and exposureSmokeless tobacco non-userNOMS HealthcareSexual OrientationToledo Hospital [facility] Surgery [facility] Medical Equipment Procedure CodeEquipment CodeEquipment Original TextEquipment IdentifierDates Signify Gel Instafill Cartridge 5cc [id number]: 62-09-9750Zhmt Mis Locking [id number]_paeXganp: 50-57-8441Kzcyl Infuse 20ga Medium Bovine Collagen Rhbmp-2 2x1in Bone Vial Absorbable - [id number]_xgyXxdxc: 02-22-9842Zfkbuvy Gel Instafill Cartridge 5cc [id number]: 19-81-6623Uwpm Mis 5.5mm Curved Jw Ti Alloy [id number]_impStart: 08-19-2023 Creo Mis 5.5mm Curved Jw Ti Alloy [id number]_impStart: .0x45 [id number]_impStart: 83-75-0614Jcbi One Robotic Modular Screw 6.5mm X 50mm [id number]_impStart: 00-33-6578Jdag One Robotic Modular Screw 6.5mm X 55mm [id number]: .[id number]: 33-58-1524Jubjwk Rise-L 3d Lordotic 21d01n5nj Spinal [id number]_xdtYqrxq: 27-99-5958Waovmw Rise-L 3d Lordotic 16c32h7ta Spinal [id number]_exwLkmak: 69-60-5499Apjjg Canopy 9mm Bone Shelf Inline Spine - [id number]_qqoYaxsk: 65-14-7553Hxtnk Canopy 2.6mm 4mm Bone Self Drill Laminoplasty Spine - [id number]_ctpTuzya: 40-13-2331Jtyegh 2.6mm Screw Self-Drilling [id number]_impStart: 06-02-2024 Functional Status EmyyFhabjayvroXhepfeKbfvuelq64-13-1635Apv you deaf, or do you have serious difficulty hearingNo 06/08/2024 3:04 PM [facility]us Crews [facility]aporb05-12-5502Mlt you blind, or do you have serious difficulty seeing, even when wearing glassesNo 06/08/2024 3:04 PM Markus Crews RN [facility]04-01-2025Do you have serious difficulty walking or climbing stairsNo 06/08/2024 3:04 PM Markus Crews RN [facility]04-01-2025Do you have difficulty dressing or bathingYes 06/08/2024 3:04 PM [facility]Zzoskl39-30-1078Doezqqx of a physical, mental, or emotional condition, do you have difficulty doing errands alone such as visiting a physician's office or shoppingYes 06/08/2024 3:04 PM Markus Crews [facility] DaytonJdtsqx46-68-0174Kqunkxcstu StatusN/[facility] Surgery Nazylgec84-38-8631Qsa you deaf, or do you have serious difficulty hearingNo 10/04/2023 11:49 AM Hayley Parrish [facility] HamiltonUcnxtk04-16-9330Zzf you blind, or do you have serious difficulty seeing, even when wearing glassesNo 10/04/2023 11:49 AM Hayley Parrish RN [facility]07-27-2024Do you have serious difficulty walking or climbing stairsNo 10/04/2023 11:49 AM Hayley Parrish RN [facility]07-27-2024Do you have difficulty dressing or bathing No 10/04/2023 11:49 AM Hayley Parrish [facility] HamiltonFmhgyr41-56-1097Vrajljt of a physical, mental, or emotional condition, do you have difficulty doing errands alone such as visiting a physician's office or shoppingNo 10/04/2023 11:49 AM Hayley Parrish [facility] HamiltonYmkphp15-63-8053Fqmjgkbncm StatusN/A [facility]08-23-2023Functional StatusN/A[facility]06-28-2023 Functional StatusNoExec[facility] [id number] StatusN/[facility] Mental Status YdopUsgyddlnndHhixrgTvgtscoh76-96-2928Rgavfnk of a physical, mental, or emotional condition, do you have serious difficulty concentrating, remembering, or making decisionsYes 06/08/2024 3:04 PM Markus Crews [facility] DaytonDzwkir55-91-8217Onebfil of a physical, mental, or emotional condition, do you have serious difficulty concentrating, remembering, or making decisionsNo 10/04/2023 11:49 AM Hayley Parrish RN [facility] Clinical Notes 05-07-2022 to 12-24-2024 Note Date & WhxfRozgFytzyjet00-06-5653 NoteUT Cardiology - [facility] Subjective Braden Rodriguez is a 69 y.o. year old male patient being seen to re-establish care with Cardiology for hypertension per PCP. Patient states he was on Coreg for a long time and it was no longer working for him, patient states he was them put on Amlodipine and it made him sick, then he was put on another medication which he can't recall the name of and is no longer taking that medication. Patient fell am due to dizziness. Patient did not [...] use: Not Currently Drug use: Never HPI Braden is a 69 yo man who is [...] kg (206 lb) SpO2 95% BMI 27.94 kg/m??? Smoking Status Never BSA 2.18 m??? Physical Exam Constitutional: Appearance: He is well-developed. [...] is cooperative. Judgment: Judgment normal. 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 Cardiovascular: normal blood pressure, no [...] laminectomy, Excision of lesion of skin, Laminectomy, Lumbarspinal fusion, Revision of fusion of lumbar spine. Medications amLODIPine 5 mg Tab, 5 mg= 1 t (more content not included)...[facility]Result Comment: Electronically Signed By: VAMSI JERNIGAN, Camryn Baker\Date and Time Signed: 11/23/24 15:15 [id number] History of Present illness Narrative* Mahamed Gray, DPM - 10/06/2024 4:15 PM EDT Images from the original note [...] was being placed. Patient was seen by Mary Zayas today and he told him he is fine and his blood flow is good. Second Complaint: Patient has NEW COMPLAINT of RT plantar medial hallux ulcer for about a week. He is cleaning ulcer daily with Vashe, Amerigel and DSD. He states that there has not been any drainagefrom ulcer. Review of Systems: General: Chills denies. [...] hallux ulceration followed by a thin layer ofAmerigel , cover with dry sterile dressing. Patient should continue daily at home Until healed. 4.The foot should be washed daily, but not exposed to water unless covered with a waterproof bandage. 5. Offloading of the ulceration is imperative.The patient should avoid walking on the ulcer and usea walker instead. 6. Maintain complete offloading of both ulcerations. 7. Once patient obtain new custom ankle-foot orthotics with offloading of hallux ulceration locations: Ulceration should heal. 8. Patient was advised if ulcerations worsen or signs of infection would occur contact office or ifafter hours or on weekends or holidays please go to local emergency room. 9. Reappoint: 1 week. Please note ulceration is a very thin and could possibly heal before next week's office visit. Bilateral foot drop 1. Patient was seen today for follow up office visit. Physical examination was performed No changesas expected.. 2.The patient has drop foot in both feet as a result of back surgeries, per patient's statement. The current over the counter AFOs need modification to reduce pressure on the wound that has there wasfull pressure on the rigid AFO underneath the ulceration. Ulceration has no chance of healing untilcompletely offloading. 3. Patient was advised that we did contact [facility] and they would be able to see patient's soon and evaluate for custom made ankle-foot orthotics with offloading of the area of hallux ulceration plantarly bilaterally. Physical Exam documented in this encounterParkland Health CenterCqxedblrpe05-67-1251 History of Present illness Narrative* Mahamed Gray DPM - 09/17/2024 10:30 AM EDT Images from the original note were [...] apply to the ulcer but patient did notknow it was prescribed. Dr. Cain also prescribed [...] prevent future ones. Blood flow is suboptimal, andthe skin temperature is lower than expected. The [...] should avoid walking on the ulcer and usea walker instead. 8. Labs: Labs were ordered [...] pressure on the wound that has there wasfull pressure on the rigid AFO underneath the ulceration. Ulceration has no chance of healing untilcompletely offloading. 3. Patient was [facility] in [facility] tosee if they can modify the existing AFOs. [...] sensory, motor, autonomic neuropathy as well as balanceissues. 3.Neuropathy is contributing to the patient's wound and affecting skin integrity. The patient should follow the neuropathy foot care guidelines provided in the handout. 4. Reappoint: 1 week. documented in this encounterParkland Health CenterJeicqorfvw02-34-2064 NoteSelect Medical Specialty [facility]05-08-2025 History of Present illness Narrative* Alfonso Loyd PA-C - 07/15/2024 9:04 AM EDT Images from the original note were not included. SPINE SURGERY FOLLOW UP This is a virtual visit using Go800om Video Visit. It required patient- provider interaction for the medical decision making as documented below. I have communicated my name and active licensure. The patient's identity and physical location wereverified at the time of this visit. Either the patient or their legal vendor representatives has been informed of the risks and benefits of -- and alternatives to -- treatment through a remote evaluation andconsents to proceed with the evaluation remotely. SERVICE [...] back pain Disabled due to back pain, permanentlyor temporarily Off work 1 month or more [...] next follow up to be virtual vs inperson with Dr. Keith. The majority of the visit was spent counseling and/or coordinating care for the patient. Total faceto face time was 20 minutes. SIGNATURE: Alfonso Loyd PA-C PATIENT NAME: Braden Rodriguez DATE: July 15, 2024 TIME: 9:13 AM PAGER: documented in this encounterRegency Hospital [facility]04-22-2025 NoteSelect Medical Specialty [facility]04-22-2025 History of Present illness Narrative* Alfonso Loyd PA-C - 06/29/2024 9:18 AM EDT Images from the original note were not included. SPINE SURGERY FOLLOW UP This is a virtual visit using 3KeyIt Video Visit. It required patient- provider interaction for the medical decision making as documented below. I have communicated my name and active licensure. The patient's identity and physical location wereverified at the time of this visit. Either the patient or their legal vendor representatives has been informed of the risks and benefits of -- and alternatives to -- treatment through a remote evaluation andconsents to proceed with the evaluation remotely. SERVICE [...] prescribed but reduces the muscle relaxer dose duringthe day to avoid drowsiness, taking the full [...] new pain or redness in the calves. [place] were removed. Incision is healing well. Patient Entered Questionnaires 01/06/2024 05/07/2024 06/14/2024 Spine Questions Pain Location: Leg Leg Neck Pain Duration: 3-6 months Pain over last 6 months: At least half the days in the past 6 months Symptoms from neck/cervical spine: No No Yes Employment Status: Disabled for reasons other than back pain Disabled due to back pain, permanentlyor temporarily Off work 1 month or more [...] therapy or strenuous activity until 6 weeks post-operatively;next evaluation scheduled for July 15 to assess readiness for increased activity and potential initiation of physical therapy. - Patient managing post-operative pain with oxycodone and muscle relaxants; taking full dose of muscle relaxants at night to minimize drowsiness during the day. - Monitoring for any changes in numbness, dexterity, or balance; no significant changes reported atthis time. - Patient experiencing lower extremity edema, managed with Lasix and compression stockings; no signs of DVT. 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 The majority of the visit was spent counseling and/or coordinating care for the patient. Total faceto face time was 30 minutes. SIGNATURE: Alfonso Loyd PA-C PATIENT NAME: Braden Rodriguez DATE: June 29, 2024 TIME: 9:20 AM PAGER: documented in this encounterRegency Hospital [facility]04-14-2025 Telephone encounter Note * Telephone Encounter - Khushboo Mazariegos RN - 06/21/2024 8:30 AM EDT Neuro SPINE CARE COORDINATION QUICK NOTE Patient requesting oxycodone refill. Last filled: 06/15/24 Surgery: 06/02/24 F/U: 06/29/24 [facility]04-14-2025 Miscellaneous Notes* Telephone Encounter - Khushboo Mazariegos RN - 06/21/2024 8:30 AM EDT Neuro SPINE CARE COORDINATION QUICK NOTE Patient requesting oxycodone refill. Last filled: 06/15/24 Surgery: 06/02/24 F/U: 06/29/24 documented in this encounterRegency Hospital [facility]04-09-2025 [place]04-09-2025 History of Present illness Narrative* Garcia Lomax LPN - 06/16/2024 9:46 AM EDT Images from the original note were [...] healing as expected, without complication or concern ofinfection. There is no evidence of dehiscence, redness, swelling, or drainage. The area was swabbed with Betadine. Patient tolerated well. Patient instructed on proper wound care and all questions answered. Patient will continue to monitor site for any red flags, and contact the office with any questions or concerns. Garcia Lomax LPN documented in this encounterRegency Hospital [facility]04-07-2025 Telephone encounter Note * Telephone Encounter - Emelia Haider RN - 06/14/2024 11:17 AM EDT Had on 06/02/2024 SURGERY/PROCEDURE: 1. C4 through [...] hours Taking Oxycodone 2 every 5 hours. [facility]04-07-2025 Miscellaneous Notes* Telephone Encounter - Emelia Haider RN - 06/14/2024 11:17 AM EDT Had on 06/02/2024 SURGERY/PROCEDURE: 1. C4 through [...] 2 every 5 hours. documented in this encounterRegency Hospital [facility]04-04-2025 Telephone encounter Note * Telephone Encounter - Viridiana Luciano RN - 06/11/2024 11:15 AM EDT Neuro SPINE CARE COORDINATION POST OP FOLLOW [...] Luciano RN June 11, 2024 11:30 AM [facility] Work Phone: [phone] Miscellaneous Notes* Telephone Encounter - Viridiana Luciano RN - 06/11/2024 11:15 AM EDT Neuro SPINE CARE COORDINATION POST OP FOLLOW [...] 11, 2024 11:30 AM documented in this encounterRegency Hospital [facility]04-03-2025 Telephone encounter Note * Telephone Encounter - Gladis Cabello RN - 06/10/2024 12:46 PM EDT Operations During Hospitalization: 06/02/2024: C3, C7 dome laminectomy, C4-6 laminoplasty [facility]04-03-2025 Miscellaneous Notes* Telephone Encounter - lGadis Cabello RN - 06/10/2024 12:46 PM EDT Operations During Hospitalization: 06/02/2024: C3, C7 dome laminectomy, C4-6 laminoplasty documented in this encounterRegency Hospital [place]04-02-2025 Telephone encounter Note * Telephone Encounter - Gladis Cabello RN - 06/09/2024 11:57 AM EDT Operations During Hospitalization: 06/02/2024: C3, C7 dome laminectomy, C4-6 laminoplasty Shared with RN team for review. [facility]04-02-2025 Miscellaneous Notes* Telephone Encounter - Gladis Cabello RN - 06/09/2024 11:57 AM EDT Operations During Hospitalization: 06/02/2024: C3, C7 dome laminectomy, C4-6 laminoplasty Shared with RN team for review. documented in this encounterRegency Hospital [place]04-01-2025 NoteSelect [facility]ty [facility]04-01-2025 NoteSelect Medical Specialty [facility]04-01-2025 NoteSelect Medical Specialty [facility]03-31-2025 NoteHNO ID: [id number] Author: MARKUS VIVEROS RN Service: Nursing Author Type: Registered Nurse Type: Nursing Progress Note Filed: 06/07/2024 18:52 Note Text: Pt refusing telemetry. Mariel De Leon notified.[facility] 06-07-2024 NoteSelect Medical Specialty [facility]03-31-2025 NoteSelect Medical Specialty [facility]03-30-2025 NoteSelect Medical Specialty [facility]03-29-2025 NoteSelect [facility] Specialty [facility]03-28-2025 NoteSelect [facility]03-27-2025 Note [facility]03-27-2025 NoteSelect [facility]03-27-2025 NoteSelect [facility]ty [facility]03-27-2025 NoteSelect [facility] 06-03-2024 NoteSelect [facility] Specialty [facility]03-26-2025 NoteSelect [facility] Specialty [facility]03-26-2025 NoteSelect [facility]ty [facility]03-26-2025 NoteSelect [facility] Specialty [facility]03-26-2025 NoteSelect [facility] Specialty [facility]03-10-2025 Note [facility]03-10-2025 History of Present illness Narrative* Olesya Veras RN - 05/17/2024 9:32 AM EDT Patient referred to Blood Management for pre-surgical optimization. Hgb 14.9 which exceeds Blood Management guidelines for intervention. documented in this encounterRegency Hospital [facility]03-07-2025 History of Present illness Narrative* Zhang Rodríguez CT - 05/14/2024 11:00 AM EST Radiology Service Progress Note PATIENT NAME: Braden Rodriguez DATE OF SERVICE: May 14, 2024 TIME: 9:44 AM PATIENT IDENTITY VERIFICATION COMPLETED USING TWO (2) IDENTIFIERS: Name and Date of confirmedby patient verbally. FALL SCREENING: Has the patient had 2 falls in the last year or 1 fall with injury or currently using an Ambulatory Assistive Device (Walker, Cane, Wheelchair, Crutches, etc.)? No PATIENT GENDER DATA: Assigned male at PATIENT RELEVANT IMPLANT DATA REVIEWED: Not Applicable PATIENT PRESENTS WITH AN IMPLANTABLE OR ATTACHED PERSONAL INJURY LEGAL ASSISTANT: No RADIOLOGY DEPARTMENT: CT; Exam(s) Completed: CSP PERIPHERAL IV DATA: Not applicable SIGNED BY: DEON Sierra May 14, 2024 9:44 AM documented in this encounterRegency Hospital [facility]03-07-2025 NoteHNO ID: [id number] Author: ZHANG RODRÍGUEZ CT Service: Radiology Author [...] PATIENT PRESENTS WITH AN IMPLANTABLE OR ATTACHED PERSONAL INJURY LEGAL ASSISTANT: No RADIOLOGY DEPARTMENT: CT; Exam(s) Completed: CSP PERIPHERAL IV DATA: Not applicable SIGNED BY: DEON Sierra May 14, 2024 9:44 [facility]2025 NoteSelect [facility]ty [facility]03-05-2025 History of Present illness Narrative* Katherine Keith MD - 05/12/2024 12:22 PM EST Images from the original note were [...] With this in mind it is reasonable toproceed with: As above Laminoplasty The risks and [...] of myelopathy in detail. We discussed that haltingsymptoms is more predictable than improving symptoms here, [...] wound complications in the setting of posterior cervicalsurgery, we discussed long-term and/or permanent pain especially interscapular pain as related to posterior cervical surgery. We had a very lengthy discussion regarding these risks, positives and breaks were taken for the patient to absorb the information as well as to voiced their understanding ofthe information. The patient demonstrated excellent understanding of [...] 8 and 7 months s/p L2-5 OLIF thenright sided L4/5 facetectomy. Persistent bilateral foot drop [...] back pain Disabled due to back pain, permanentlyor temporarily Off work 1 month or more [...] TIME: 12:22 PM PAGER: documented in this encounterRegency Hospital [facility]03-05-2025 Instructions* Patient Instructions* Rhona Boss MD - 05/12/2024 8:53 AM EST Images from the original note were not included. [facility] PATIENT PREOPERATIVE INSTRUCTIONS Katherine Keith MD has scheduled you for your procedure at this surgery center: [facility] Scheduling Office: [phone] --[address] [place] [address]. Please read below carefully for your personalized [...] office. If you are currently using a kigs-jvs-gdxg injectable or oral medication for diabetes or weight loss such as Dulaglutide (Trulicity), Exenatide (Byetta, Bydureon), Liraglutide (Victoza, Saxenda), Semaglutide (Ozempic, Wegovy, Rybelsus), or Tirzepatide (Mounjaro), the medicine should be stopped at least 7 days before surgery. These medicines can cause food to remain in your stomach for a very longtime and increase the risks from surgery and anesthesia. Not stopping the medication for a long enough time may result in your surgery being rescheduled. Blood Thinning Medications: - Stop NSAIDS (Ibuprofen, Advil, Aleve, Motrin, Celebrex, Mobic, etc.) 7 days before surgery, as directed by your surgeon. - Do NOT stop aspirin or other anticoagulants without consulting with your reclamation supervisor or prescribing physician. - Stop ALL herbal [...] please check with your dialysis center or paediatric physiotherapist to see if any adjustments need to [...] Procedures: - YOU MUST HAVE A RESPONSIBLE PRODUCTION SUPPORT CONSULTANT TAKE YOU HOME. A DONOR RELATIONS OFFICER OR DIGITAL STRATEGY MANAGER CANNOT BE MADE A RESPONSIBLE PRODUCTION SUPPORT CONSULTANT. - We recommend that a responsible person stays with you overnight to take care of you. - You cannot stay in a hotel alone after outpatient surgery. You will not be permitted to have yoursurgery, if you do not have someone to [...] call the Friday before. Your surgeon s orthopedic specialist will tell you what time to call the office. - If you have not reached the departmental orthopedic specialist by 5 P.M., call [phone] after 5 P.M. the day before your surgery. Please be aware that emergency situations arise, which may delay or change your surgical time. If this happens, we will notify you as soon as possible and regret any inconvenience. If you already have an Advance Directive, please fax a copy to [phone] or email to for it to be added to your chart. If you do not have an Advance Directive, you can find the appropriate form and more information at [email or web address]. We recommend that youcomplete the Advance Directive form found on the website and bring it with you the day of your surgery. It can be witnessed and scanned into your chart that day. Rhona Boss MD documented in this encounterRegency Hospital [facility]03-05-2025 History and physical note * Rhona Boss MD - 05/12/2024 8:38 AM EST Images from the original note [...] [facility] Status of surgery/procedure:: Scheduled Date of surgery/procedure:: [...] COVID-19 original vaccine, age 12+ yr, monovalent (PFIZER- BIONTECH - PURPLE TOP) 06/09/2020 Imm Admin: COVID-19 original vaccine, age 12+ yr, monovalent (PFIZER- BIONTECH - PURPLE TOP) 05/19/2020 Imm Admin: COVID-19 original vaccine, age 12+ yr, monovalent (PFIZER- BIONTECH - PURPLE TOP) Only the first 3 [...] fevers. Neurological: No history of TIA's, stroke, DIRECTOR CARDIOLOGY tumor, impaired sensorium, hemiplegia, paraplegia orquadraplegia. No neurological symptoms or problems. Respiratory: No [...] 402 QTC Calculation (Bazett) 411 Calculated P [place] 59 Calculated R [place] 48 Calculated T [place] 72 Impression NORMAL SINUS RHYTHM POSSIBLE LEFT ATRIAL ENLARGEMENT BORDERLINE ECG No results found for this or any previous visit (from the past 51281 hours). Instructions Given to Patient: Instructions located in the after visit summary. Patient given verbal and written preop instructions and voices comprehension and compliance. SIGNATURE: Rhona Boss MD PATIENT NAME: Braden Rodriguez DATE: May 12, 2024 TIME: 8:38 AM PAGER/CONTACT #: [facility]03-05-2025 History and physical note* Rhona Boss MD - 05/12/2024 8:38 AM EST Images from the original note [...] 08/11/2024 [facility]:: [facility] Status of surgery/procedure:: Scheduled Date of surgery/procedure:: [...] COVID-19 original vaccine, age 12+ yr, monovalent (PFIZER- BIONTECH - PURPLE TOP) 06/09/2020 Imm Admin: COVID-19 original vaccine, age 12+ yr, monovalent (PFIZER- BIONTECH - PURPLE TOP) 05/19/2020 Imm Admin: COVID-19 original vaccine, age 12+ yr, monovalent ([employer] - PURPLE TOP) Only the first 3 [...] fevers. Neurological: No history of TIA's, stroke, DIRECTOR CARDIOLOGY tumor, impaired sensorium, hemiplegia, paraplegia orquadraplegia. No neurological symptoms or problems. Respiratory: No [...] 402 QTC Calculation (Bazett) 411 Calculated P [place] 59 Calculated R [place] 48 Calculated T [place] 72 Impression NORMAL SINUS RHYTHM POSSIBLE LEFT ATRIAL ENLARGEMENT BORDERLINE ECG No results found for this or any previous visit (from the past 83548 hours). Instructions Given to Patient: Instructions located in the after visit summary. Patient given verbal and written preop instructions and voices comprehension and compliance. SIGNATURE: Rhona Boss MD PATIENT NAME: Braden Rodriguez DATE: May 12, 2024 TIME: 8:38 AM PAGER/CONTACT #: documented in this encounterRegency Hospital [facility]02-26-2025 NoteSelect [facility] [place] History of Present illness Narrative* Katherine Keith MD - 05/05/2024 3:11 PM EST Virtual visit: I have communicated my name and active licensure. The patient's identity and physical location wereverified at the time of this visit. Either the patient or their legal vendor representatives has been informed of the risks and benefits of -- and alternatives to -- treatment through a remote evaluation andconsents to proceed with the evaluation remotely. 10 minutes Follow up virtual visit. Last seen 01/12/25 and we decided to continuing to monitor his right foot drop which persisted. His left foot was starting to make some progress. 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 He feels like his walking is starting to get worse again. He feels like his foot drop is continuingto impact his balance and stability. He denies [...] laminoplasty Katherine Keith MD documented in this encounterReg[facility]-14-[facility]24 History of Present illness Narrative* Joseph Carter RT(R) - 02/21/2024 5:00 PM EST Radiology Service Progress Note PATIENT NAME: Braden Rodriguez DATE OF SERVICE: February 21, 2024 TIME: 4:25 PM PATIENT IDENTITY VERIFICATION COMPLETED USING TWO (2) IDENTIFIERS: Name and Date of confirmedby identification band and Name and Date of obtained from a relative, guardian or prior caregiver.. FALL SCREENING: Has the patient had 2 falls in the last year or 1 fall with injury or currently using an Ambulatory Assistive Device (Walker, Cane, Wheelchair, Crutches, etc.)? No PATIENT GENDER DATA: Male PATIENT RELEVANT IMPLANT DATA REVIEWED: Yes PATIENT PRESENTS WITH AN IMPLANTABLE OR ATTACHED PERSONAL INJURY LEGAL ASSISTANT: No RADIOLOGY DEPARTMENT: MR; Exam(s) Completed: Spine: Cervical spine PERIPHERAL IV DATA: Not applicable SIGNED BY: RT Lydia(Michael) February 21, 2024 4:25 PM documented in this encounterRegency Hospital [facility]12-14-2024 [facility] Telephone encounter Note* Telephone Encounter - Melody Castaneda RN - 02/03/2024 8:53 AM EST Attempted to contact patient regarding Cervical MRI that was ordered Left detailed message on patient identified voicemail. Number to schedule provided. [facility]11-26-2024 Miscellaneous Notes* Telephone Encounter - Melody Castaneda RN - 02/03/2024 8:53 AM EST Attempted to contact patient regarding Cervical MRI that was ordered Left detailed message on patient identified voicemail. Number to schedule provided. documented in this encounterRegency Hospital [facility]11-05-2024 NoteSelect [facility]-05-2024 History of Present illness Narrative* Katherine Keith MD - 01/13/2024 1:56 PM EST Images from the original note were [...] continues to have bilateral foot drop. We discussedthat given patient is 3 months post surgery, he will continue to recover from the surgery. PLAN Would like to continue following patient Plan for in person or virtual follow up in 3 months OK to discontinue physical therapy per patient's wishes Sampson Christopher MD (AJ) documented in this encounterRegency Hospital [facility]11-05-2024 NoteSelect [facility]11-05-2024 History of Present illness Narrative* Letty Mckeon MD - 01/13/2024 9:18 AM EST UNIVERSAL PROTOCOL / SAFETY CHECKLIST Procedure to [...] Care Visit completed when applicable. Mis Grimes, ophthalmic assistant B.S. MATTHEW Mckeon MD documented in this encounterRegency Hospital [facility]11-05-2024 History of Present illness Narrative* Mo Sainz RT(R) - 01/13/2024 8:30 AM EST Radiology Service Progress Note PATIENT NAME: Braden Rodriguez DATE OF SERVICE: January 13, 2024 TIME: 7:51 AM PATIENT IDENTITY VERIFICATION COMPLETED USING TWO (2) IDENTIFIERS: Name and Date of confirmedby patient verbally. FALL SCREENING: Has the patient had 2 falls in the last year or 1 fall with injury or currently using an Ambulatory Assistive Device (Walker, Cane, Wheelchair, Crutches, etc.)? No PATIENT GENDER DATA: Male PATIENT RELEVANT IMPLANT DATA REVIEWED: Yes PATIENT PRESENTS WITH AN IMPLANTABLE OR ATTACHED PERSONAL INJURY LEGAL ASSISTANT: No RADIOLOGY DEPARTMENT: MR; Exam(s) Completed: Spine: Thoracic spine and Lumbar spine PERIPHERAL IV DATA: Not applicable SIGNED BY: RT Blossom(R) January 13, 2024 7:51 AM documented in this encounterRegency Hospital [facility]11-05-2024 NoteSelect [facility]11-05-2024 History of Present illness Narrative* Aaron Pitts RT(R) - 01/13/2024 8:00 AM EST Radiology Service Progress Note PATIENT NAME: Braden Rodriguez DATE OF SERVICE: January 13, 2024 TIME: 8:52 AM PATIENT IDENTITY VERIFICATION COMPLETED USING TWO (2) IDENTIFIERS: Name and Date of confirmedby patient verbally and Name and Date of confirmed by identification band. FALL SCREENING: Has the patient had 2 falls in the last year or 1 fall with injury or currently using an Ambulatory Assistive Device (Walker, Cane, Wheelchair, Crutches, etc.)? No PATIENT GENDER DATA: Male PATIENT RELEVANT IMPLANT DATA REVIEWED: Yes PATIENT PRESENTS WITH AN IMPLANTABLE OR ATTACHED PERSONAL INJURY LEGAL ASSISTANT: No RADIOLOGY DEPARTMENT: CT; Exam(s) Completed: Spine PERIPHERAL IV DATA: Not applicable SIGNED BY: RT Cj(R) January 13, 2024 8:52 AM documented in this encounterRegency Hospital [facility]11-05-2024 NoteSelect [facility]09-27-2024 Telephone encounter Note* Telephone Encounter - Melody Castaneda RN - 12/05/2023 9:11 AM EDT Called patient to follow up after steroid taper. No answer. Left message to return call to the office. [facility]09-27-2024 Miscellaneous Notes* Telephone Encounter - Melody Castaneda RN - 12/05/2023 9:11 AM EDT Called patient to follow up after steroid taper. No answer. Left message to return call to the office. documented in this encounterRegency Hospital [facility]09-05-2024 Note* Addendum Note - Alfonso Loyd PA-C - 11/13/2023 4:25 PM EDTAddended by: ALFONSO LOYD on: 11/13/2023 04:25 PM Modules accepted: Orders [facility]09-05-2024 Miscellaneous Notes* Addendum Note - Alfonso Loyd PA-C - 11/13/2023 4:25 PM EDTAddended by: ALFONSO LOYD on: 11/13/2023 04:25 PM Modules accepted: Orders documented in this encounterRegency Hospital [facility]09-04-2024 [place]09-04-2024 History of Present illness Narrative* Katherine Kieth MD - 11/12/2023 2:47 PM EDT Images from the original note [...] 6 4 Pain Location: -- Leg-Right Description: Cramping;Shooting;Spasm;Stabbing;Stiffness;Tenderness;Tightness;Tingling Throbbing;Pulsating Duration Amount of Time: 3 4 Duration Units: Months Months Frequency: Continuous Continuous Intervention/Comfort measure: Medication;Reposition Relaxation;Medication;Heat;Exercise;Positioning Pain Radiation: Pain does not radiate ANTIPLATELET [...] above Meenakshi Morin MD Spine Surgery Fellow [id number] [address] [place]: [facility] ([facility]) Tenriism: [id number] I reviewed the information obtained and documented by the fellow. I examined the patient and evaluated all available films and pertinent documents. We discussed the case and I agree with the plans asoutlined in this note. SIGNATURE: Katherine Keith MD PATIENT NAME: Braden Rodriguez DATE: November 12, 2023 TIME: 2:47 PM PAGER: documented in this encounterRegency Hospital [facility]09-04-2024 History of Present illness Narrative* Viry Celaya RT(R) - 11/12/2023 1:10 PM EDT Radiology Service Progress Note PATIENT NAME: Braden Rodriguez DATE OF SERVICE: November 12, 2023 TIME: 1:13 PM PATIENT IDENTITY VERIFICATION COMPLETED USING TWO (2) IDENTIFIERS: Name and Date of confirmedby patient verbally. FALL SCREENING: Has the patient had 2 falls in the last year or 1 fall with injury or currently using an Ambulatory Assistive Device (Walker, Cane, Wheelchair, Crutches, etc.)? No PATIENT GENDER DATA: Male PATIENT RELEVANT IMPLANT DATA REVIEWED: Not Applicable PATIENT PRESENTS WITH AN IMPLANTABLE OR ATTACHED PERSONAL INJURY LEGAL ASSISTANT: No RADIOLOGY DEPARTMENT: General X-ray: Exam(s) Completed: Spine X-Ray(s): Lumbar AP / LAT / L5-S1 PERIPHERAL IV DATA: Not applicable SIGNED BY: RT Guillermo(Michael) November 12, 2023 1:13 PM documented in this encounterRegency Hospital [facility]09-04-2024 NoteSelect [facility]09-03-2024 Telephone encounter Note* Telephone Encounter - Melody Castaneda RN - 11/11/2023 4:37 PM EDT Patient returned call and was transferred to RN Discussed we will not be able to refill the narcotic until tomorrow, and will review in office tomorrow. Patient also has questions and concerns for the nerve pain and right foot drop that has persisted. No further questions, he voiced appreciation for the call [facility]09-03-2024 Miscellaneous Notes* Telephone Encounter - Melody Castaneda RN - 11/11/2023 4:37 PM EDT Patient returned call and was transferred to RN Discussed we will not be able to refill the narcotic until tomorrow, and will review in office tomorrow. Patient also has questions and concerns for the nerve pain and right foot drop that has persisted. No further questions, he voiced appreciation for the call * Telephone Encounter - Melody Castaneda RN - 11/11/2023 4:04 PM EDT Attempted to contact patient to discuss his my chart message and medication refill request. Left message to return call to the office. documented in this encounterRegency Hospital [facility]09-03-2024 Telephone encounter Note * Telephone Encounter - Melody Castaneda RN - 11/11/2023 4:04 PM EDT Attempted to contact patient to discuss his my chart message and medication refill request. Left message to return call to the office. [facility]08-28-2024 Telephone encounter Note* Telephone Encounter - Melody Castaneda RN - 11/05/2023 3:44 PM EDT Prior auth completed, awaiting approval [facility]08-28-2024 Miscellaneous Notes* Telephone Encounter - Melody Castaneda RN - 11/05/2023 3:44 PM EDT Prior auth completed, awaiting approval * Telephone Encounter - Mann Benavides - 11/05/2023 12:37 PM EDT [facility] called re Rx Refill, needs a Pre-auth because insurance only cover 2 refills. Pls do the pre-auth through: covermymeds. The gibbons: [id number] (low/upper is ok). Pls let [facility] know once it's approved by call [phone] documented in this encounterRegency Hospital [facility]08-28-2024 Telephone encounter Note * Telephone Encounter - Melody Castaneda RN - 11/05/2023 3:43 PM EDT Prior auth completed [id number] [facility]08-28-2024 Miscellaneous Notes* Telephone Encounter - Melody Castaneda RN - 11/05/2023 3:43 PM EDT Prior auth completed [id number] * Telephone Encounter - Tara Sarabia - 11/05/2023 2:04 PM EDT Received a fax from Cover My Med[employer] requesting a prior authorization for: Hydrocodone-Acetaminophen 5-325 MG Tablets Cover My Meds Gibbons: [id number] Pharmacy: [id number] Fax scanned in to pt's chart for our records. documented in this encounterRegency Hospital [facility]08-28-2024 Telephone encounter Note * Telephone Encounter - Tara Sarabia - 11/05/2023 2:04 PM EDT Received a fax from [employer] requesting a prior authorization for: Hydrocodone-Acetaminophen 5-325 MG Tablets Cover My Meds Gibbons: [id number] Pharmacy: [id number] Fax scanned in to pt's chart for our records. [facility]08-28-2024 Telephone encounter Note* Telephone Encounter - Mann Benavides - 11/05/2023 12:37 PM EDT [facility] called re Rx Refill, needs a Pre-auth because insurance only cover 2 refills. Pls do the pre-auth through: covermymeds. The gibbons: [id number] (low/upper is ok). Pls let [facility] know once it's approved by call [phone] [facility]08-15-2024 Note* Addendum Note - Alfonso Loyd PA-C - 10/23/2023 11:22 AM EDTAddended by: ALFONSO LOYD on: 10/23/2023 11:22 AM Modules accepted: Orders [facility]08-15-2024 Miscellaneous Notes* Addendum Note - Alfonso Loyd PA-C - 10/23/2023 11:22 AM EDTAddended by: ALFONSO LOYD on: 10/23/2023 11:22 AM Modules accepted: Orders * Telephone Encounter - Melody Castaneda RN - 10/23/2023 11:03 AM EDT Called [facility] pharmacy and confirmed they do not have the Lavonia available. Pharmacist cancelled order. Will update JUDY to send to new pharmacy listed. documented in this encounterRegency Hospital [facility]08-15-2024 Telephone encounter Note * Telephone Encounter - Melody Castaneda RN - 10/23/2023 11:03 AM EDT Called [facility] pharmacy and confirmed they do not have the Lavonia available. Pharmacist cancelled order. Will update JUDY to send to new pharmacy listed. [facility]08-13-2024 NoteSelect [facility]08-13-2024 History of Present illness Narrative* Alfonso Loyd PA-C - 10/21/2023 8:40 AM EDT SPINE SURGERY FOLLOW UP This is a virtual visit using Go[employer] Video Visit. It required patient- provider interaction for the medical decision making as documented below. I have communicated my name and active licensure. The patient's identity and physical location wereverified at the time of this visit. Either the patient or their legal vendor representatives has been informed of the risks and benefits of -- and alternatives to -- treatment through a remote evaluation andconsents to proceed with the evaluation remotely. SERVICE [...] DATA REVIEW [facility] records independently reviewed ASSESSMENT/PLAN (R29.024) Right leg weakness (primary encounter diagnosis) (Z98.1) S/P lumbar fusion Seen virtually for 2 week post operative appointment. He continues to notices right sided weakness and foot drop which occurred after his first surgery in August. He has not noticed any improvements atthis time. He's no longer using any medications. We discussed plan of starting PT with restrictions. Order placed and will be faxed to a local facility once he decides where he will be going. Follow up at [address] Keith as scheduled. Call with any changes prior. The majority of the visit was spent counseling and/or coordinating care for the patient. Total faceto face time was 30 minutes. SIGNATURE: Alfonso Loyd PA-C PATIENT NAME: Braden Rodriguez DATE: October 21, 2023 TIME: 8:40 AM PAGER: documented in this encounterRegency Hospital [facility]08-08-2024 Telephone encounter Note * Telephone Encounter - Melody Castaneda RN - 10/16/2023 4:58 PM EDT Noted medication update. No Issue for change from surgical standpoint. [facility]08-08-2024 Miscellaneous Notes* Telephone Encounter - Melody Castaneda RN - 10/16/2023 4:58 PM EDT Noted medication update. No Issue for change from surgical standpoint. * Telephone Encounter - Vanessa Aguirre - 10/16/2023 10:19 AM EDT Naye from Dr. Ester Cain's office called. Pt was seen yesterday complaining of the side effect from Gabapentin and the doctor change the medication to Lyrica 50 mg. documented in this encounterRegency Hospital [facility]08-08-2024 Telephone encounter Note * Telephone Encounter - Vanessa Aguirre - 10/16/2023 10:19 AM EDT Naye from Dr. Ester Cain's office called. Pt was seen yesterday complaining of the side effect from Gabapentin and the doctor change the medication to Lyrica 50 mg. [facility] Work Phone: [phone]) 291-815508-01-2024 Note* Addendum Note - Alfonso Loyd PA-C - 10/09/2023 3:44 PM EDTAddended by: ALFONSO LOYD on: 10/09/2023 03:44 PM Modules accepted: Orders [facility]08-01-2024 Miscellaneous Notes* Addendum Note - Alfonso Loyd PA-C - 10/09/2023 3:44 PM EDTAddended by: ALFONSO LOYD on: 10/09/2023 03:44 PM Modules accepted: Orders documented in this encounterRegency Hospital [facility]07-27-2024 NoteSelect [facility]07-27-2024 NoteSelect [facility]07-27-2024 NoteSelect [facility] [place] [facility]07-26-2024 NoteSelect [facility]07-26-2024 Note [facility]-25-2024 NoteSelect [facility]07-25-2024 NoteSelect [facility]07-23-2024 Telephone encounter Note* Telephone Encounter - Aaron Garcia - 09/30/2023 3:28 PM EDTSumayse: Research Interest: POUR study I spoke with Braden Rodriguez, over the phone on 09/30/2023 regarding the study IRB# [id number]: Postoperative urinary retention in patients after noncardiac surgery and reversal of neuromuscular block byneostigmine or sugammadex: A randomized control trial. The [...] wished him/her luck with the upcoming procedure. SignedAaron Medical Student Visiting Researcher OUTCOMES RESEARCH MAIN [facility]07-23-2024 Miscellaneous Notes* Telephone Encounter - Aaron Garcia - 09/30/2023 3:28 PM EDTSummarvirgilio: Research Interest: POUR study I spoke with Braden Rodriguez, over the phone on 09/30/2023 regarding the study IRB# [id number]: Postoperative urinary retention in patients after noncardiac surgery and reversal of neuromuscular block byneostigmine or sugammadex: A randomized control trial. The [...] Researcher OUTCOMES RESEARCH MAIN documented in this encounterRegency Hospital [facility]07-23-2024 NoteSelect [facility]07-23-2024 History of Present illness Narrative* Melody Castaneda RN - 09/30/2023 10:00 AM EDT Neuro SPINE CARE COORDINATION PRE-OP VISIT Met with patient via phone for pre op education. Given both written and verbal instructions re : Skin prep, wound care, pain management and post op restrictions. Provided to patient: [facility] Surgery Guide, skin prep supplies, Spine Surgery Pre/post op education packet. Yes Reviewed with patient to report to desk Transfluent for surgery ? Yes. Reviewed with the patient to call [phone] the day before to get surgery report [...] daughter. Melody Castaneda RN documented in this encounterRegency Hospital [facility]07-17-2024 Telephone encounter Note * Telephone Encounter - Judi McleanDALLAS - 09/24/2023 1:00 PM EDT CARE CONTINUUM ADVISOR ASSESSMENT PRIMARY CARE PHYSICIAN: Ester Cain MD OR Surgery Date: 10/02/23 Health Insurance: [employer] [facility] [place] Financial Resources: Retired Primary Contact: Extended Emergency Contact Information Primary Emergency Contact: Marycarmen Rodriguez Address: [address] [place] [address] [place] Mobile Relation: Spouse Secondary Emergency Contact: NORA RODRIGUEZ Mobile Relation: Son Other Important Patient Contacts: None 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 No FREEDOM OF CHOICE: Level of Care Discussed: Home Care Financial Disclosure Provided: No Financial Disclaimer Provided: No Provider List: Home Care Provider list within the patient's requested geographic area shared with the patient/family: Yes - Within 15 miles of [address] [place] [address] Provider Choices Collected Home Health: no prefernece Interventions: N/A SIGNATURE: DALLAS Barros PATIENT NAME: Braden Rodriguez DATE: September 24, 2023 TIME: 1:00 PM PAGER/CONTACT #: [facility]07-17-2024 Miscellaneous Notes* Telephone Encounter - Judi Mclean LSW - 09/24/2023 1:00 PM EDT CARE CONTINUUM ADVISOR ASSESSMENT PRIMARY CARE PHYSICIAN: Ester Cain MD OR Surgery Date: 10/02/23 Health Insurance: [employer] [facility] [place] Financial Resources: Retired Primary Contact: Extended Emergency Contact Information Primary Emergency Contact: Marycarmen Rodriguez Address: [address] [place] [id number] [place] [address] Mobile Relation: Spouse Secondary Emergency Contact: NORA RODRIGUEZ Mobile Relation: Son Other Important Patient Contacts: None 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 No FREEDOM OF CHOICE: Level of Care Discussed: Home Care Financial Disclosure Provided: No Financial Disclaimer Provided: No Provider List: Home Care Provider list within the patient's requested geographic area shared with the patient/family: Yes - Within [address] miles of [address] [place] [address] Provider Choices Collected Home Health: no prefernece Interventions: N/A SIGNATURE: DALLAS Barros PATIENT NAME: Braden Rodriguez DATE: September 24, 2023 TIME: 1:00 PM PAGER/CONTACT #: * Telephone Encounter - Judi Mclean LSW - 09/24/2023 12:58 PM EDT CM was able to leave a brief detailed message on identified vm requesting call back to discuss postop care. CM provided contact information. documented in this encounterRegency Hospital [facility]07-17-2024 Telephone encounter Note * Telephone Encounter - Judi Mclean LSW - 09/24/2023 12:58 PM EDT CM was able to leave a brief detailed message on identified vm requesting call back to discuss postop care. CM provided contact information. [facility]07-09-2024 Telephone encounter Note* Telephone Encounter - Melody Castaneda RN - 09/16/2023 3:36 PM EDT Attempted to return call to home care PT Patient is coming back in for surgery in 2 weeks. Does not nee home care at this time. [facility]07-09-2024 Miscellaneous Notes* Telephone Encounter - Melody Castaneda RN - 09/16/2023 3:36 PM EDT Attempted to return call to home care PT Patient is coming back in for surgery in 2 weeks. Does not nee home care at this time. * Telephone Encounter - Melia Adler - 09/16/2023 3:15 PM EDT Call received for Katherine Keith MD regarding Braden Rodriguez. Caller: Other: [facility] Patient Identified by Name and : Yes Reason for Call: Devin is calling to notify Dr. Keith that patient has not been seen for PT Devin states patient will not return calls Is there any additional information the provider should know? No, no response needed Last Office Visit: 09/04/2023 Next scheduled appointment: 10/08/2023 Best number to reach caller: Devin [phone] Best time to reach caller: 9 am till 5 pm Is it OK to leave a detailed voice message? Yes Melia Vieyra documented in this encounterRegency Hospital [facility]07-09-2024 Telephone encounter Note * Telephone Encounter - Melia Adler - 09/16/2023 3:15 PM EDT Call received for Katherine Keith MD regarding Braden Rodriguez. Caller: Other: [facility] Patient Identified by Name and : Yes Reason for Call: Devin is calling to notify Dr. Keith that patient has not been seen for PT Devin states patient will not return calls Is there any additional information the provider should know? No, no response needed Last Office Visit: 09/04/2023 Next scheduled appointment: 10/08/2023 Best number to reach caller: Devin [phone] Best time to reach caller: 9 am till 5 pm Is it OK to leave a detailed voice message? Yes Melia Ochoa Marketing Database Consultant [facility]07-08-2024 Note* Addendum Note - Stephane Fair PA-C - 09/15/2023 1:41 PM EDTAddended by: STEPHANE FAIR on: 09/15/2023 01:41 PM Modules accepted: Orders [facility]07-08-2024 Miscellaneous Notes* Addendum Note - Stephane Fair PA-C - 09/15/2023 1:41 PM EDTAddended by: STEPHANE FAIR on: 09/15/2023 01:41 PM Modules accepted: Orders * Telephone Encounter - Stephane Fair PA-C - 09/15/2023 1:25 PM EDT Reviewed in patient notes Covering provider for Alfonso Loyd PA-C and Katherine Keith MD Patient's request for medication is as follows: Requested Prescriptions Pending Prescriptions Disp Refills oxyCODONE IR (ROXICODONE) 10 mg tab 42 tablet 0 Sig: Take 1 tablet by mouth every 4 hours as needed for pain for up to 7 days. Stephane Fair PA-C Spine Surgery documented in this encounterReg[facility]24 Telephone encounter Note * Telephone Encounter - Stephane Fair PA-C - 09/15/2023 1:25 PM EDT Reviewed in patient notes Covering provider for Alfonso Loyd PA-C and Katherine Keith MD Patient's request for medication is as follows: Requested Prescriptions Pending Prescriptions Disp Refills oxyCODONE IR (ROXICODONE) 10 mg tab 42 tablet 0 Sig: Take 1 tablet by mouth every 4 hours as needed for pain for up to 7 days. Stephane Fair PA-C Spine Surgery [facility]07-05-2024 Note* Addendum Note - Alfonso Loyd PA-C - 09/12/2023 2:35 PM EDTAddended by: ALFONSO LOYD on: 09/12/2023 02:35 PM Modules accepted: Orders [facility]07-05-2024 Miscellaneous Notes* Addendum Note - Alfonso Loyd PA-C - 09/12/2023 2:35 PM EDTAddended by: ALFONSO LOYD on: 09/12/2023 02:35 PM Modules accepted: Orders documented in this encounterRegency Hospital [facility]07-03-2024 [facility] Note[facility] Note[facility]2024 [facility]24 Note [facility]2024 [facility]-20[facility] Note[facility]-2024 [facility]2023 Telephone encounter Note* Telephone Encounter - Emelia Haider RN - 09/05/2023 3:41 PM EDT Script was sent on 09/03. [facility] Miscellaneous Notes* Telephone Encounter - Emelia Haider RN - 09/05/2023 3:41 PM EDT Script was sent on 09/03. documented in this encounterRegency Hospital [facility]06-27-2024 Telephone encounter Note * Telephone Encounter - Winnie Quesada - 09/04/2023 12:49 PM EDT Pt has an order that is from REMI [facility]. For Home Health Care. Marianne from [facility] called and said pt was refusing Home Health. I did as her to call the orderingPA, she wanted it noted in his chart here, as well [facility] Miscellaneous Notes* Telephone Encounter - Winnie Quesada - 09/04/2023 12:49 PM EDT Pt has an order that is from PA. Arianne For Home Health Care. Marianne from [facility] called and said pt was refusing Home Health. I did as her to call the orderingPA, she wanted it noted in his chart here, as well documented in this encounterRegency [facility]06-25-2024 Telephone encounter Note * Telephone Encounter - Gavi Mix Tara - 09/02/2023 3:31 PM EDT Patient phones requesting refills as follows: Requested Prescriptions Pending Prescriptions Disp Refills oxyCODONE IR (ROXICODONE) 5 mg immediate release tablet 42 tablet 0 Sig: Take 1 tablet by mouth every 4 hours for 7 days. Last visit: 08/29/2023 Pharmacy: [facility], #[id number] Pharmacy Current Dosage: Patient is currently taking 1 tab every 4 hrs; Has enough for several days left. Please review and advise; ph: [phone] Tara Mix [facility] Miscellaneous Notes* Telephone Encounter - Tara Sarabia - 09/02/2023 3:31 PM EDT Patient phones requesting refills as follows: Requested Prescriptions Pending Prescriptions Disp Refills oxyCODONE IR (ROXICODONE) 5 mg immediate release tablet 42 tablet 0 Sig: Take 1 tablet by mouth every 4 hours for 7 days. Last visit: 08/29/2023 Pharmacy: [facility], #[id number] Pharmacy Current Dosage: Patient is currently taking 1 tab every 4 hrs; Has enough for several days left. Please review and advise; ph: [phone] Tara Dawkins documented in this encounterRegency Hospital [facility]06-24-2024 Telephone encounter Note * Telephone Encounter - Melody Castaneda RN - 09/01/2023 2:06 PM EDT Returned call to patient to further discuss [...] review with Dr Keith and follow up. [facility] Miscellaneous Notes* Telephone Encounter - Melody Castaneda RN - 09/01/2023 2:06 PM EDT Returned call to patient to further discuss [...] Keith and follow up. documented in this encounterRegency Hospital [facility]06-21-2024 Telephone encounter Note * Telephone Encounter - Melody Castaneda RN - 08/29/2023 10:29 AM EDT Returned call to pharmacy. Advised Vikas Loyd did speak to patient regarding stopping the Lavonia and taking Oxy. Also getting his pain medication through us during this post op time period. He voiced appreciation. No further questions. [facility] Miscellaneous Notes* Telephone Encounter - Melody Castaneda RN - 08/29/2023 10:29 AM EDT Returned call to pharmacy. Advised Vikas Loyd did speak to patient regarding stopping the Lavonia and taking Oxy. Also getting his pain medication through us during this post op time period. He voiced appreciation. No further questions. * Telephone Encounter - Winnie Quesada - 08/29/2023 9:26 AM EDT Call received for Katherine Keith MD regarding Braden Rodriguez. Caller: Sandeep, Pharmacist [facility] Patient Identified by Name and : [...] appointment: 10/08/2023 Best number to reach caller: [phone] Best time to reach caller: any Is it OK to leave a detailed voice message? Yes Winnie Quesada documented in this encounterRegency Hospital [facility]06-21-2024 Telephone encounter Note * Telephone Encounter - Winnie Quesada - 08/29/2023 9:26 AM EDT Call received for Katherine Keith MD regarding Braden Rodriguez. Caller: Sandeep, Pharmacist [facility] Patient Identified by Name and : [...] appointment: 10/08/2023 Best number to reach caller: [phone] Best time to reach caller: any Is it OK to leave a detailed voice message? Yes Winnie Quesada [facility]2024 NoteSelect [facility]06-21-2024 History of Present illness Narrative* Alfonso Loyd PA-C - 08/29/2023 8:20 AM EDT SPINE SURGERY FOLLOW UP This is a virtual visit using [employer] Zoom Video Visit. It required patient- provider interaction for the medical decision making as documented below. I have communicated my name and active licensure. The patient's identity and physical location wereverified at the time of this visit. Either the patient or their legal vendor representatives has been informed of the risks and benefits of -- and alternatives to -- treatment through a remote evaluation andconsents to proceed with the evaluation remotely. SERVICE [...] He continues to use steroids. He saw hislocal PCP regarding swelling in the legs and US was negative. They started him on lasix and it has improved. Symptoms are slowly improving. Post operative pain is now more tolerable. Using Lavonia from his PCP which is not as [...] His PCP filled his lat prescription for Lavonia which is not providing relief. We discussed stopping and restarting the Roxicodone every 4 hours, refill provided. He will continue to use Zanaflex whichhelps better than the Robaxin. Incision is healing well. Follow up with Dr. Keith at 6 weeks. He will call with any changes. The majority of the visit was spent counseling and/or coordinating care for the patient. Total faceto face time was 30 minutes. SIGNATURE: Alfonso Loyd PA-C PATIENT NAME: Braden Rodriguez DATE: August 29, 2023 TIME: 8:20 AM PAGER: documented in this encounterRegency Hospital [facility]06-14-2024 NoteSelect [facility]06-13-2024 NoteSelect [facility]06-13-2024 NoteSelect [facility]06-12-2024 NoteSelect [facility]06-12-2024 Note [facility]-12-2024 Note[facility]06-12-2024 NoteSelect [facility]06-11-2024 NoteSelect [facility] 08-19-2023 NoteSelect [facility]06-11-2024 NoteSelect [facility]06-03-2024 Telephone encounter Note* Telephone Encounter - Judi Mclean LSW - 08/11/2023 12:57 PM EDT CM was able to leave a brief detailed message on identifed vm requesting call back to discuss post op care. CM provided contact information. [facility] Miscellaneous Notes* Telephone Encounter - Judi Mclean LSW - 08/11/2023 12:57 PM EDT CM was able to leave a brief detailed message on identifed vm requesting call back to discuss post op care. CM provided contact information. documented in this encounterRegency Hospital [facility]06-02-2024 NoteSelect [facility]06-02-2024 History of Present illness Narrative* Olesya Veras RN - 08/10/2023 10:56 AM EDT Patient referred to Blood Management for pre-surgical optimization. Hgb 15.1 which exceeds Blood Management guidelines for intervention. documented in this encounterRegency Hospital [facility]05-29-2024 History and physical note * Sanam Gill PA-C - 08/06/2023 9:40 AM EDT HISTORY AND PHYSICAL EXAMINATION SERVICE DATE: 08/06/2023 [...] over the last year. Relieving factors include Lavonia and steroids. Aggravating factors include repetitive movement. [...] COVID-19 original vaccine, age 12+ yr, monovalent (PFIZER- BIONTECH - PURPLE TOP) 06/09/2020 Imm Admin: COVID-19 original vaccine, age 12+ yr, monovalent (PFIZER- BIONTECH - PURPLE TOP) 05/19/2020 Imm Admin: COVID-19 original vaccine, age 12+ yr, monovalent (PFIZER- BIONTECH - PURPLE TOP) REVIEW OF SYSTEMS: PAIN ASSESSMENT: Pain Pain Level: 5 Pain Location: Leg-Left Description: Aching, Burning, Cramping, Numbness, Pulsating, Raw, Sharp, Shooting, Spasm, Throbbing, Tingling Duration Amount of Time: 5 Duration Units: Months Frequency: Continuous Intervention/Comfort measure: Medication General: No weight loss, malaise or fevers. Neuro: No history of TIA's, stroke, DIRECTOR CARDIOLOGY tumor, impaired sensorium, hemiplegia, paraplegia or quadraplegia. [...] or clotting disorder. Pt is not taking anti- coagulation or platelet medications. No history of hematological [...] Braden Rodriguez DATE: 08/06/2023 TIME: 10:18 AM [facility] History and physical note* Sanam Gill PA-C - 08/06/2023 9:40 AM EDT HISTORY AND PHYSICAL EXAMINATION SERVICE DATE: 08/06/2023 [...] over the last year. Relieving factors include Lavonia and steroids. Aggravating factors include repetitive movement. [...] COVID-19 original vaccine, age 12+ yr, monovalent (PFIZER- BIONTECH - PURPLE TOP) 06/09/2020 Imm Admin: COVID-19 original vaccine, age 12+ yr, monovalent (PFIZER- BIONTECH - PURPLE TOP) 05/19/2020 Imm Admin: COVID-19 original vaccine, age 12+ yr, monovalent (PFIZER- BIONTECH - PURPLE TOP) REVIEW OF SYSTEMS: PAIN ASSESSMENT: Pain Pain Level: 5 Pain Location: Leg-Left Description: Aching, Burning, Cramping, Numbness, Pulsating, Raw, Sharp, Shooting, Spasm, Throbbing, Tingling Duration Amount of Time: 5 Duration Units: Months Frequency: Continuous Intervention/Comfort measure: Medication General: No weight loss, malaise or fevers. Neuro: No history of TIA's, stroke, DIRECTOR CARDIOLOGY tumor, impaired sensorium, hemiplegia, paraplegia or quadraplegia. [...] or clotting disorder. Pt is not taking anti- coagulation or platelet medications. No history of hematological [...] 08/06/2023 TIME: 10:18 AM documented in this encounterRegency Hospital [facility]05-24-2024 Telephone encounter Note * Telephone Encounter - Tara Sarabia - 08/01/2023 11:03 AM EDT Duplicate, patient already spoke to RN (see phone encounter). [facility] Miscellaneous Notes* Telephone Encounter - Tara Sarabia - 08/01/2023 11:03 AM EDT Duplicate, patient already spoke to RN (see phone encounter). documented in this encounterRegency Hospital [facility]05-24-2024 Telephone encounter Note * Telephone Encounter - Melody Castaneda RN - 08/01/2023 10:51 AM EDT Patient accepts sooner date of 08/18 New education class on 08/11 at 2 PM Will change post ops He voiced appreciation. No further questions. [facility] Miscellaneous Notes* Telephone Encounter - Melody Castaneda RN - 08/01/2023 10:51 AM EDT Patient accepts sooner date of 08/18 New education class on 08/11 at 2 PM Will change post ops He voiced appreciation. No further questions. * Telephone Encounter - Melia Adler - 08/01/2023 9:41 AM EDT Patient is returning nurse call pertaining to below message, sooner appt call back [phone] * Telephone Encounter - Melody Castaneda RN - 08/01/2023 9:01 AM EDT Called patient to offer sooner surgery date Left message to return call to the office documented in this encounterRegency Hospital [facility]05-24-2024 Telephone encounter Note * Telephone Encounter - Melia Adler - 08/01/2023 9:41 AM EDT Patient is returning nurse call pertaining to below message, sooner appt call back [phone] [facility] Instructions* Patient Instructions* Sanam Gill PA-C - 08/01/2023 9:35 AM EDT PATIENT PREOPERATIVE INSTRUCTIONS Katherine Keith MD has scheduled you for your procedure at this surgery center: [facility] Scheduling Office: [phone] --[address] [place] [address]. Please read below carefully for your personalized instructions. Arrival Time for Surgery: - To obtain your arrival time for surgery, call your physician's office the day before your surgery. - If your surgery is scheduled for Friday, call the Friday before. Your surgeon s orthopedic specialist will tell you what time to call the office. - If you have not reached the departmental orthopedic specialist by 5 P.M., call [phone] after 5 P.M. the day before your [...] Advance Directive, please fax a copy to [phone] or email to for it to be added to your chart. If you do not have an Advance Directive, you can find the appropriate form and more information at [email or web address]. We recommend that youcomplete the Advance Directive form found on the website and bring it with you the day of your surgery. It can be witnessed and scanned into your chart that day. Sanam Gill PA-C documented in this encounterRegency Hospital [facility]05-24-2024 Telephone encounter Note * Telephone Encounter - Melody aCstaneda RN - 08/01/2023 9:01 AM EDT Called patient to offer sooner surgery date Left message to return call to the office [facility] Telephone encounter Note* Telephone Encounter - Garcia Lomax LPN - 07/14/2023 12:11 PM EDT Received, Reviewed [employer] Disability Attending Physician Statement [employer] forms and need signed by Dr. Keith Sent to Dr. Keith via [employer] for signature Leave dates: 09/02/23-11/07/23 No Post op appt scheduled as of yet. Garcia Maldonado LPN [facility]-06-2024 Miscellaneous Notes* Telephone Encounter - Garcia Lomax LPN - 07/14/2023 12:11 PM EDT Received, Reviewed [employer] Disability Attending Physician Statement [employer] forms and need signed by Dr. Keith Sent to Dr. Keith via [employer] for signature Leave dates: 09/02/23-11/07/23 No Post op appt scheduled as of yet. Garcia Maldonado LPN documented in this encounterRegency Hospital [facility]04-04-2024 Miscellaneous Notes* Telephone Encounter - Melody Castaneda RN - 06/12/2023 4:30 PM EDT Neuro SPINE CARE COORDINATION QUICK NOTE Called [...] office note from 04/30 No further questions. * Telephone Encounter - Garcia Lomax LPN - 06/12/2023 2:43 PM EDT I received [employer] forms for LTD. I called patient to explain we don't complete LTD, but he stated that he is not currently working and have exhausted his STD. He states the form is due 06/12/23. Sending to CC. Oliver to review * Telephone Encounter - Tara Sarabia - 06/11/2023 5:29 PM EDT Received Attending Physician's Statement from [facility]. Sent via [employer] for processing. documented in this encounterRegency Hospital [facility]edo03-21-2024 Miscellaneous Notes* Telephone Encounter - Melody Castaneda RN - 05/29/2023 1:04 PM EDT Neuro SPINE CARE COORDINATION SURGERY SCHEDULING Patient [...] your surgery to help with physical activities sucha toileting or dressing? Always How many steps [...] disposition : Low [5.2] Melody Castaneda RN * Telephone Encounter - Melody Castaneda RN - 05/29/2023 12:55 PM EDT Surgery Planning Name: Braden Rodriguez Age: [age] year old Wt: 91.5 kg (201 lb 11.5 oz) BMI: 27.36 kg/(m^2) Procedure: 2-5 ATP Fusion with perc Diagnosis: (Z98.890) History of lumbar laminectomy for spinal cord decompression (primary encounterdiagnosis) (M41.50) Degenerative scoliosis in adult patient Length [...] Dr. Katherine Keith:04/30 Please schedule PAT for [place] the week of 08/04. Please schedule pre [...] Lumbar N/A TREK/MC N/A documented in this encounterRegency Hospital [facility]edo02-25-2024 History of Present illness Narrative* Blanca Price RT(R) - 05/04/2023 8:00 AM EST Radiology Service Progress Note PATIENT NAME: Braden Rodriguez DATE OF SERVICE: May 04, 2023 TIME: 8:09 AM PATIENT IDENTITY VERIFICATION COMPLETED USING TWO (2) IDENTIFIERS: Name and Date of confirmedby patient verbally and Name and Date of confirmed by identification band. FALL SCREENING: Has the patient had 2 falls in the last year or 1 fall with injury or currently using an Ambulatory Assistive Device (Walker, Cane, Wheelchair, Crutches, etc.)? No PATIENT GENDER DATA: Male PATIENT RELEVANT IMPLANT DATA REVIEWED: Not Applicable PATIENT PRESENTS WITH AN IMPLANTABLE OR ATTACHED PERSONAL INJURY LEGAL ASSISTANT: No RADIOLOGY DEPARTMENT: CT; Exam(s) Completed: Spine PERIPHERAL IV DATA: Not applicable SIGNED BY: MARY Gomes) May 04, 2023 8:09 AM documented in this encounterRegency Hospital [facility]02-25-2024 NoteHNO ID: [id number] Author: BLANCA PRICE RT (R) Service: Radiology [...] PATIENT PRESENTS WITH AN IMPLANTABLE OR ATTACHED PERSONAL INJURY LEGAL ASSISTANT: No RADIOLOGY DEPARTMENT: CT; Exam(s) Completed: Spine PERIPHERAL IV DATA: Not applicable SIGNED BY: MARY Gomes) May 04, 2023 8:09 [id number] History of Present illness Narrative* Douglas Menchaca RT(R) - 04/30/2023 1:30 PM EST Radiology Service Progress Note PATIENT NAME: Braden Rodriguez DATE OF SERVICE: April 30, 2023 TIME: 1:42 PM PATIENT IDENTITY VERIFICATION COMPLETED USING TWO (2) IDENTIFIERS: Name and Date of confirmedby patient verbally. FALL SCREENING: Has the patient had 2 falls in the last year or 1 fall with injury or currently using an Ambulatory Assistive Device (Walker, Cane, Wheelchair, Crutches, etc.)? No PATIENT GENDER DATA: Male PATIENT RELEVANT IMPLANT DATA REVIEWED: Not Applicable PATIENT PRESENTS WITH AN IMPLANTABLE OR ATTACHED PERSONAL INJURY LEGAL ASSISTANT: No RADIOLOGY DEPARTMENT: General X-ray: Exam(s) Completed: Spine X-Ray(s): Scoliosis Series PERIPHERAL IV DATA: Not applicable SIGNED BY: RT Jimbo(Michael) April 30, 2023 1:42 PM documented in this encounterRegency Hospital [facility]02-21-2024 History of Present illness Narrative* Katherine Keith MD - 04/30/2023 11:49 AM EST Images from the original note [...] and/or . Cardiovascular and pulmonary risk, as relatedto the patient's preoperative clearance and assessment by [...] potential complications of spinal headache, and/or persistent leakage,resulting in the need for further surgery, and/or [...] risk of screw misplacement resulting in radiculopathy orneurological injury was discussed. Discussed hip weakness and [...] breakdown that may or may not be symptomaticwas discussed. No guarantees were offered nor implied regarding final outcome status post surgery or presence or absence of complication perioperatively. After a thorough discussion, the patient had many appropriate questions, all questions were answered to the patient's stated satisfaction. The patient voiced excellent understanding of both the reasoning for offering surgery, the potential compli cations regarding this particular surgery, and has elected [...] With this in mind it is reasonable toproceed with: As above Katherine Keith MD SERVICE DATE: 04/30/2023 PCP: Ester Cain MD REFERRING PROVIDER: Tello Angeles [id number] [facility] [place] [id number] Consult requested for an opinion regarding the [...] lumbar radiculopathy, all done at outside facilities. [id number] he had a single level decompression which resolved his LLE radicular pain. In 2012 his sx returned but in the RLE, so a revision at the same level was done. This resolved his RLE pain. In 2018, he developed more stenosis with BLE radicular pain resulting in a revision L3-S1 decompression. Thisworked well until February 2023, when he sat in a low chair resulting in BLE L4 numbness (not pain)and left foot drop requiring AFO. Has since been in PT for 6 weeks which has not helped. Has taken medications and injections in the past for his issues. Failed conservative management thus far. XR and MR obtained listed below. Denies b/b changes. Does note changes in posture. Denies changes in dexterity, denies neck pain. Does have balance issues which he attributes to footdrop PAIN EVALUATION 04/28/2023 1006 Pain Level: 5 Pain Location: Leg-Left Description: Aching;Burning;Cramping;Dull;Numbness;Pulsating;Sharp;Shooting;Stabbing;Throbbin g;Tingling Duration Amount of Time: 2 Duration Units: [...] L3-S1 with some residual stenosis at L2-3. Multi- level degenerative discs from L2-S1. ASSESSMENT/PLAN (Z98.890) History [...] case and I agree with the plans asoutlined in this note. Jan Leon MD Fellow SIGNATURE: Katherine Keith MD PATIENT NAME: Braden Rodriguez DATE: April 30, 2023 TIME: 11:51 AM PAGER: documented in this encounterRegency Hospital [facility]02-21-2024 History of Present illness Narrative* Viry Celaya RT(R) - 04/30/2023 11:30 AM EST Radiology Service Progress Note PATIENT NAME: Braden Rodriguez DATE OF SERVICE: April 30, 2023 TIME: 10:47 AM PATIENT IDENTITY VERIFICATION COMPLETED USING TWO (2) IDENTIFIERS: Name and Date of confirmedby patient verbally. FALL SCREENING: Has the patient had 2 falls in the last year or 1 fall with injury or currently using an Ambulatory Assistive Device (Walker, Cane, Wheelchair, Crutches, etc.)? No PATIENT GENDER DATA: Male PATIENT RELEVANT IMPLANT DATA REVIEWED: Not Applicable PATIENT PRESENTS WITH AN IMPLANTABLE OR ATTACHED PERSONAL INJURY LEGAL ASSISTANT: No RADIOLOGY DEPARTMENT: General X-ray: Exam(s) Completed: Spine X-Ray(s): Lumbar AP / LAT / L5-S1 / FLEX-EXT PERIPHERAL IV DATA: Not applicable SIGNED BY: RT Guillermo(Michael) April 30, 2023 10:47 AM documented in this encounterRegency Hospital [facility]edo01-12-2024 History of Present illness Narrative* Alfonso Loyd PA-C - 03/21/2023 5:54 AM EST Requesting to see Dr. Keith Left leg pain, trouble walking, numbness in the leg, weakness. He has tried: PT, NSAID, steroids, MR, Tramadol Previous surgery x 3 at [place] Lumbar MRI report with severe central stenosis of L3-4 and L4-5. XR ordered for an appointment withDr. Keith. * Gabbi Fox - 03/19/2023 10:11 AM EST Patient name: Braden Rodriguez Are you being referred by a [place] for Spine Health Provider or Pain Management Provider at [facility]? No If answer is YES please schedule directly with surgeon, triage does not need to be completed. Is this a self-referral No If not, who is the Referring Provider Dr. Tello Angeles Is this a 2nd opinion from another spine surgeon? Yes Were you offered surgery? No MRI/CT/myelogram within 12 months? Yes If NO , please refer to medical spine or PCP to complete above imaging, triage does not need to be completed If YES, please ask for the name/address of the facility where the MRI/CT/myelogram was completed: [facility] [place] [address] [place] [address] MRI/CT/myelogram viewable in Epic: No If not, please provide [phone] to fax in imaging reports for review. Also, please inform patient to hand carry imaging disc to appointment. XR (spine) within 12 months: Yes If YES, please ask for the name/address of the facility where the XR was completed: Dr. Tello Angeles MD [address] [address] Dr. Davis's patients: Have you had previous EMG/Nerve Conduction Study, Ultrasound, or MRI for thesesame symptoms? If YES, please ask for the [...] Starting PT 03/20/2023 for drop foot [facility] [address] [place] [address] Have you tried any other kinds of [...] where the surgery was completed: 1999 laminectomy [facility] [place] lumbar surgery [facility] 2019 lumbar surgery [facility] Additional Comments [phone] [facility] Discharge instructions Patient Education 12/05/2022 12:42:33 Prostate Cancer Screening Prostate Cancer Screening Prostate cancer screening is testing that is done to check for the presence of prostate cancer in men. The prostate gland is a walnut-sized gland that is located below the bladder and in front of therectum in males. The function of the prostate is to add fluid to semen during ejaculation. Prostatecancer is one of the most common types of cancer in men. Who should have prostate cancer screening? Screening recommendations vary based on age and other risk factors, as well as between the professional organizations who make the recommendations. In general, screening is recommended if: You are age 50 to 70 and have an average risk for prostate cancer. You should talk with your healthcare provider about your need for screening and [...] diagnosed with prostate cancer. The risk is higherif your family member's cancer occurred at an early age or if you have multiple family members withprostate cancer at an early age. ?Being a [...] is a blood test called the prostate-specific antigen(PSA) test. PSA is a protein that is [...] treatment? Where to find more information The [place] [employer]: www.cancer.org [place] [employer]: www.auanet.org Contact a health care [...] the recommended screening test for prostate cancer, butit has associated risks. Discuss the risks and [...] Document Reviewed: 08/20/2021 Elsevier Patient Education 2022 [employer] Follow Up Care 11/27/2022 14:43:00 With:Kahlil JERNIGAN, MARLENA Salmon, URO Address: When: Unknown [facility] 08-23-2023 Hospital Discharge instructions Patient Education 10/30/2022 11:02:30 Prostate Cancer Screening Prostate Cancer Screening Prostate cancer screening is testing that is done to check for the presence of prostate cancer in men. The prostate gland is a walnut-sized gland that is located below the bladder and in front of therectum in males. The function of the prostate is to add fluid to semen during ejaculation. Prostatecancer is one of the most common types of cancer in men. Who should have prostate cancer screening? Screening recommendations vary based on age and other risk factors, as well as between the professional organizations who make the recommendations. In general, screening is recommended if: You are age 50 to 70 and have an average risk for prostate cancer. You should talk with your healthcare provider about your need for screening and [...] diagnosed with prostate cancer. The risk is higherif your family member's cancer occurred at an early age or if you have multiple family members withprostate cancer at an early age. ?Being a [...] is a blood test called the prostate-specific antigen(PSA) test. PSA is a protein that is [...] treatment? Where to find more information The [place] [employer]: www.cancer.org [place] [employer]: www.auanet.org Contact a health care [...] the recommended screening test for prostate cancer, butit has associated risks. Discuss the risks and [...] provider. Document Revised: 08/20/2021 Document Reviewed: 08/20/2021 [employer] Patient Education 2022 Fluency Follow Up Care 09/04/2022 08:48:35 With:Kahlil JERNIGAN, MARLENA Salmon, URO Address: When:Within 2 Month(s) Comments:w/NINA [facility] 06-28-2023 Hospital Discharge instructions Patient Education 09/04/2022 08:36:45 Prostate Cancer Screening Prostate Cancer Screening Prostate cancer screening is testing that is done to check for the presence of prostate cancer in men. The prostate gland is a walnut-sized gland that is located below the bladder and in front of therectum in males. The function of the prostate is to add fluid to semen during ejaculation. Prostatecancer is one of the most common types of cancer in men. Who should have prostate cancer screening? Screening recommendations vary based on age and other risk factors, as well as between the professional organizations who make the recommendations. In general, screening is recommended if: You are age 50 to 70 and have an average risk for prostate cancer. You should talk with your healthcare provider about your need for screening and [...] diagnosed with prostate cancer. The risk is higherif your family member's cancer occurred at an early age or if you have multiple family members withprostate cancer at an early age. ?Being a [...] is a blood test called the prostate-specific antigen(PSA) test. PSA is a protein that is [...] treatment? Where to find more information The [place] [employer]: www.cancer.org [place] [employer]: www.auanet.org Contact a health care [...] the recommended screening test for prostate cancer, butit has associated risks. Discuss the risks and [...] provider. Document Revised: 08/20/2021 Document Reviewed: 08/20/2021 [employer] Patient Education 2022 [employer] Follow Up Care 08/26/2022 10:02:45 With:Kahlil JERNIGAN, MARLENA Salmon, NELLY Address: When:Within 4 Week(s) Comments:w/ PSA [facility] 02-28-2023 Hospital Discharge instructions Follow Up Care 05/07/2022 15:08:01 With:VAMSI JERNIGAN, OJ Kraus Address: [address] [place] [phone]- When: only if needed General Surgery [facility] Evaluation + Plan note No data available for this section General Surgery [facility] Evaluation + Plan note Future Appointments Appointment Date:05/21/2022 02:40:00 PM Scheduled Provider:Camryn AGUSTIN MD Location:[facility] Appointment Type: Post Op 15 General Surgery Clark Evaluation + Plan note Future Appointments Appointment Date:09/24/2022 01:40:00 PM Scheduled Provider:Camryn AGUSTIN MD Location:[facility] Appointment Type: Established 15 Appointment Date:09/25/2022 08:45:00 AM Scheduled Provider:Shae Guillory MD Location:[facility] Appointment Type:URO Office Visit Diagnostic Tests Pending * PSA Total 09/04/22 * PSA Free & Total 09/04/22 [facility] evaluation + Plan note Future Appointments Appointment Date:01/08/2023 09:00:00 AM Scheduled Provider:Shae Guillory MD Location:[facility] Appointment Type:URO Office Visit Diagnostic Tests Pending * PSA Free & Total 10/30/22 [facility] evaluation + Plan note Future Appointments Appointment Date:04/23/2023 09:45:00 AM Scheduled Provider:Shae Guillory MD Location:[facility] Appointment Type:URO Office Visit Diagnostic Tests Pending * PSA Free & Total 12/05/22 [facility] evaluqnsue noteNo assessment information available [facility] Work Phone: [email or web address] note* Diagnosis Spinal stenosis, lumbar region with neurogenic claudication- Primary [facility] Diagnosis History of lumbar laminectomy for spinal cord decompression Other postprocedural status Degenerative scoliosis in adult patient Chronic low back pain, unspecified back pain laterality, unspecified whether sciatica present [facility]* Diagnosis Spinal stenosis, lumbar region with neurogenic claudication [facility] Diagnosis Chronic low back pain, unspecified back pain laterality, unspecified whether sciatica present [facility] Diagnosis History of lumbar laminectomy for [...] Preoperative examination, unspecified [facility] Pre-op exam- Primary Preoperative examination, unspecified Primary hypertension Unspecified essential hypertension SVT (supraventricular tachycardia) (HCC) Other specified cardiac dysrhythmias History of penicillin allergy Personal history of allergy to penicillin History of laminectomy Other postprocedural status Degenerative scoliosis in adult patient Pre-op testing Preoperative examination, unspecified [facility] Diagnosis Acute post-operative pain [facility] Diagnosis Acute post-operative pain [facility] Diagnosis Acute post-operative pain [facility]* Diagnosis S/P lumbar fusion- Primary Arthrodesis status [facility] Diagnosis S/P lumbar spinal fusion- Primary Arthrodesis status Pre-op testing Preoperative examination, unspecified S/P lumbar spinal fusion Arthrodesis status [facility]* Diagnosis S/P lumbar fusion Arthrodesis status S/P lumbar spinal fusion Arthrodesis status [facility] Diagnosis S/P lumbar spinal fusion- Primary Arthrodesis status S/P lumbar spinal fusion Arthrodesis status [facility] Diagnosis Post-op pain- Primary Other acute postoperative pain [facility] Diagnosis Post-op pain Other acute postoperative pain [facility] Diagnosis Right leg weakness- Primary Other musculoskeletal symptoms referable to limbs S/P lumbar fusion Arthrodesis status [facility] Diagnosis Post-op pain Other acute postoperative pain [facility] Diagnosis Acute post-operative pain SVT (supraventricular tachycardia) ([facility]) Other specified cardiac dysrhythmias Acute post-operative pain [...] acute postoperative pain [facility] Diagnosis Acute post-operative pain SVT (supraventricular tachycardia) ([facility]) Other specified cardiac dysrhythmias Acute post-operative pain [...] acute postoperative pain [facility] Diagnosis Acute post-operative pain SVT (supraventricular tachycardia) ([facility]) Other specified cardiac dysrhythmias Acute post-operative pain [...] in adult patient [facility] Diagnosis Acute post-operative pain SVT (supraventricular [...] whether sciatica present [facility] Diagnosis Acute post-operative pain SVT (supraventricular [...] referable to limbs [facility] Diagnosis Acute post-operative pain SVT (supraventricular [...] of treatment, sequela [facility] Diagnosis Acute post-operative pain SVT (supraventricular [...] of treatment, sequela [facility] Diagnosis Acute post-operative pain SVT (supraventricular [...] whether sciatica present [facility] Diagnosis Acute post-operative pain SVT (supraventricular [...] malaise and fatigue [facility] Diagnosis Acute post-operative pain SVT (supraventricular [...] in cervical region [facility] Diagnosis Acute post-operative pain SVT (supraventricular [...] in cervical region [facility] Diagnosis Acute post-operative pain SVT (supraventricular [...] in cervical region [facility]* Diagnosis Acute post-operative pain SVT (supraventricular [...] in cervical region [facility] Diagnosis Acute post-operative pain SVT (supraventricular [...] in cervical region [facility] Diagnosis Acute post-operative pain SVT (supraventricular [...] in cervical region documented in this encounter [facility] note* Diagnosis Acute post-operative pain SVT (supraventricular [...] in cervical region [facility]* Diagnosis Acute post-operative pain Scoliosis of [...] abnormal blood chemistry [facility] Diagnosis Acute post-operative pain Scoliosis of [...] removal of sutures [facility] Diagnosis Acute post-operative pain Scoliosis of [...] acute postoperative pain [facility]* Diagnosis Acute post-operative pain Scoliosis of [...] postoperative pain [facility] Diagnosis Acute post-operative pain Scoliosis of [...] Arthrodesis status documented in this encounter [facility] note* Diagnosis Acute post-operative pain Scoliosis [...] Arthrodesis status documented in this encounter [facility] note* Diagnosis Idiopathic peripheral neuropathy- Primary Unspecified hereditary and idiopathic peripheral neuropathy Neurogenic ulcer, 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) PAD (peripheral artery disease) Unspecified peripheral vascular disease Absent pulse Other symptoms involving cardiovascular system Foot drop, bilateral Other acquired deformity of ankle and foot [facility] Diagnosis Foot drop, bilateral- Primary Other acquired deformity of ankle and foot Neurogenic ulcer, 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) PAD (peripheral artery disease) Unspecified peripheral vascular disease Absent pulse Other symptoms involving cardiovascular system Idiopathic peripheral neuropathy Unspecified hereditary and idiopathic peripheral neuropathy [facility] No data available for this section General Surgery [facility] Progress note No data available for this section General Surgery [facility] Reason for referral (narrative)* Diagnostic Procedure Only (Routine) - Pending ReviewSpecialtyDiagnoses / ProceduresReferred By ContactReferred To ContactXR IMAGING Diagnoses Spinal stenosis, lumbar region with neurogenic claudication Procedures XR LUMBAR MOTION 4V AP/LAT/ FLEX/EXT RADEX SPINE LUMBOSACRAL MINIMUM 4 VIEWS Alfonso Loyd PA-C [address] [facility] [place] [phone] Xr Imaging [place] [address] Referral IDStatusReasonStart DateExpiration DateVisits RequestedVisits [id number] Review Auto-Generated Referral / [facility] for referral (narrative)* Diagnostic Procedure Only (Routine) - ClosedSpecialtyDiagnoses / ProceduresReferred By ContactReferred To ContactXR IMAGING Diagnoses History of lumbar laminectomy for spinal cord decompression Degenerative scoliosis in adult patient Chronic low back pain, unspecified back pain laterality, unspecified whether sciatica present Procedures XR SCOLIOSIS PA STAND/LAT 2V RADEX ENTIR THRC LMBR CRV SAC SPI W/SKULL 2/3 VW Katherine Keith MD [address] [place] [address] Xr Imaging [place] [address] Referral IDStatusReasonStart DateExpiration DateVisits RequestedVisits [id number] Auto-Generated Referral / [facility] for referral (narrative)* Diagnostic Procedure Only (Routine) - ClosedSpecialtyDiagnoses / ProceduresReferred By ContactReferred To ContactXR IMAGING Diagnoses Spinal stenosis, lumbar region with neurogenic claudication Procedures XR LUMBAR MOTION 4V AP/LAT/ FLEX/EXT RADEX SPINE LUMBOSACRAL MINIMUM 4 VIEWS Alfonso Loyd PA-C [address] [facility] [place] [address] Xr Imaging [place] [address] Referral IDStatusReasonStart DateExpiration DateVisits RequestedVisits [id number] Auto-Generated Referral / [facility] for referral (narrative)* Outpatient Procedure (Routine) - Pending ReviewSpecialtyDiagnoses / ProceduresReferred By ContactReferred To [facility] Diagnoses Pre-op exam Procedures ECG COMPLETE ECG ROUTINE ECG W/LEAST 12 LDS W/I&R Sanam Gill PA-C [address] [place] [address] [facility] [place] [address] [place] [address] Ref[facility] DateExpiration DateVisits RequestedVisits [id number] Review Auto-Generated Referral T [facility] for referral (narrative)* Diagnostic Procedure Only (Routine) - ClosedSpecialtyDiagnoses / ProceduresReferred By ContactReferred To [facility] Diagnoses History of laminectomy Degenerative scoliosis in adult patient Procedures XR LUMBAR LIMITED 2V AP/LAT RADEX SPINE LUMBOSACRAL 2/3 VIEWS Alfonso Loyd PA-C [address] [place] [address] Xr Imaging [place] [address] Referral IDStaOur [facility] DateExpiration DateVisits RequestedVisits [id number] Auto-Generated [facility]erral [facility] (narrative)* Outpatient Procedure (Routine) - Pending ReviewSpecialtyDiagnoses / ProceduresReferred By ContactReferred To ContactNE[facility]OLOGICAL INSTITUTE Diagnoses Adverse effect of treatment, sequela Procedures EMG(NEURO/NI) NERVE CONDUCTION STUDIES 9-10 STUDIES Katherine Keith MD [address] [place] [address] Neurological [place] [address] [place] [address] Referral IDStatusReasonStart DateExpiration DateVisits RequestedVisits [id number] Review Auto-Generated Referral * MRI/CT (Routine) - AuthorizedSpecialtyDiagnoses / ProceduresReferred By ContactReferred To ContactCT IMAGING Diagnoses Acute low back pain, unspecified back pain laterality, unspecified whether sciatica present Procedures CT LUMBAR SPINE WO IVCON CT LUMBAR SPINE W/O CONTRAST MATERIAL Katherine Keith MD [address] [place] [address] Ct Imaging [place] [address] Referral IDStatusReasonStart DateExpiration DateVisits RequestedVisits [id number] Auto-Generated Referral * MRI/CT (Routine) - AuthorizedSpecialtyDiagnoses / ProceduresReferred By ContactReferred To ContactMR IMAGING Diagnoses Adverse effect of treatment, sequela Procedures MRI LUMBAR SPINE WO IVCON MRI SPINAL CANAL LUMBAR W/O CONTRAST MATERIAL Katherine Keith MD [address] [place] [address] Mr Imaging [facility] Referral IDStatusReasonStart DateExpiration DateVisits RequestedVisits [id number] Auto-Generated Referral * MRI/CT (Routine) - AuthorizedSpecialtyDiagnoses / ProceduresReferred By ContactReferred To ContactMR IMAGING Diagnoses Adverse effect of treatment, sequela Procedures MRI THORACIC SPINE WO IVCON MRI SPINAL CANAL THORACIC W/O CONTRAST MATRL Nelson Keithinic, MD [address] [facility] [place] [address] Mr Imaging [place] [address] Referral IDStatusReasonStart DateExpiration DateVisits RequestedVisits [id number] Auto-Generated Referral [facility] for referral (narrative)* Diagnostic Procedure Only (Routine) - ClosedSpecialtyDiagnoses / ProceduresReferred By ContactReferred To ContactMR IMAGING Diagnoses Spinal stenosis of cervical region Procedures MRI CERVICAL SPINE WO IVCON MRI SPINAL CANAL CERVICAL W/O CONTRAST Alfonso Campos PA-C [address] [place] [phone] Mr Imaging [place] [address] Referral IDStatusReasonStart DateExpiration DateVisits RequestedVisits [id number] Auto-Generated Referral / [facility] for referral (narrative)No reason for referral [facility] Work Phone: Reason for visit Narrative* MRI/CT (Routine) - Closed SpecialtyDiagnoses / ProceduresReferred By ContactReferred To ContactCT IMAGING Diagnoses Spinal stenosis of cervical region Procedures CT CERVICAL SPINE WO IVCON CT CERVICAL SPINE W/O CONTRAST MATERIAL Katherine Keith MD [address] [place] [id number] Phone: tel: fax: CT IMAGING [place] [address] Referral IDStatusReasonStart DateExpiration DateVisits RequestedVisits [id number] Auto-Generated Referral / [facility] Summary Purpose Family History No Family History [...] Directives No Advanced Directives Records Found Date ActivatedDate InactivatedComments09/08/2023 1:22 AM09/10/2023 7:51 PMQuestion AnswerCommentsFull Code Order Discussed With:* Patient Advance Directive Response Recorded Date/ Time Advance Directives No October 01 3:21pm Date ActivatedDate InactivatedComments09/08/2023 1:22 AMDate ActivatedDate InactivatedComments09/08/2023 1:22 AM09/10/2023 7:51 PMQuestionAnswerCommentsFull Code Order Discussed With:* Patient Chief Complaint and Reason for Visit Chief Complaint r97.20 Chief Complaint Unknown Chief Complaint Admit Date L98.491 I73.9 R09.89 September 27, 2024 1:1 4pm Chief Complaint Admit Date L98.491 I73.9 R09.89 September 27, 2024 1:1 4pm Ref by Kugallito, absent pulses chronic ulc er of skin October 06, 2024 10:18am Reason for Referral SpecialtyDiagnoses / ProceduresReferred By ContactReferred To ContactMR IMAGING Diagnoses Spinal stenosis of cervical region Procedures MRI CERVICAL SPINE WO IVCON MRI SPINAL CANAL CERVICAL W/O CONTRAST MATRL Alfonso Loyd PA-C [address] [place] [address] Mr Imaging [place] [address] Referral IDStatusReasonStart DateExpiration DateVisits RequestedVisits [id number] Request Auto-Generated Referral [id number] / ProceduresReferred By ContactReferred To ContactCT IMAGING Diagnoses Acute low back pain, unspecified back pain laterality, unspecified whether sciatica present Procedures CT LUMBAR SPINE WO IVCON CT LUMBAR SPINE W/O CONTRAST MATERIAL Katherine Keith MD [address] [place] [address] Ct Imaging [place] [address] Referral IDStatusGabrielaasonRanburne DateExpiration DateVisits RequestedVisits [id number] Auto-Generated Referral [id number] / ProceduresReferred By ContactReferred To ContactMR IMAGING Diagnoses Adverse effect of treatment, sequela Procedures MRI LUMBAR SPINE WO IVCON MRI SPINAL CANAL LUMBAR W/O CONTRAST MATERIAL Katherine Keith MD [address] [place] [address] Mr Imaging [place] [address] Ref[facility] DateExpiration DateVisits RequestedVisits [id number] Auto-Generated Referral [id number] / ProceduresReferred By ContactReferred To ContactREHAB AND SPORTS THERAPY INS Diagnoses Right leg weakness S/P lumbar fusion Procedures CONSULT TO PHYSICAL THERAPY PHYSICAL THERAPY EVALUATION HIGH COMPLEX 45 MINS Alfonso Loyd PA-C [address] [place] [address] [facility] [place] [id number] [place] [address] Referral IDStatusJesusadelina DateExpiration DateVisits RequestedVisits [id number] Review Auto-Generated Referral [id number] / ProceduresReferred By ContactReferred To Contact Diagnoses History of laminectomy Degenerative scoliosis in adult patient Pre-op testing Procedures REFER TO [facility] - PRE ANESTHESIA CONSULTATION CLINIC OFFICE/OUTPATIENT [facility] 60 MINUTES Alfonso Loyd PA-C [address] [facility] [place] [address] Referral IDStatusSal DateExpiration DateVisits RequestedVisits [id number] PCP Requested Referral [id number] / ProceduresReferred By ContactReferred To ContactXR IMAGING Diagnoses History of laminectomy Degenerative scoliosis in adult patient Procedures XR LUMBAR LIMITED 2V AP/LAT RADEX SPINE LUMBOSACRAL 2/3 VIEWS Alfonso Loyd PA-C [address] [place] [address] Xr Imaging [place] [address] Ref[facility] DateExpiration DateVisits RequestedVisits [id number] Review Auto-Generated Referral /[id number] / ProceduresReferred By ContactReferred To ContactNE[facility]OLOGICAL INSTITUTE Diagnoses History of lumbar laminectomy for spinal cord decompression Degenerative scoliosis in adult patient Chronic low back pain, unspecified back pain laterality, unspecified whether sciatica present Procedures EMG(NEURO/NI) NERVE CONDUCTION STUDIES 9-10 STUDIES Katherine Keith MD [address] [place] [address] Neurological [place] [facility] [place] [address] Ref[facility] IDStatus[facility] DateExpiration DateVisits RequestedVisits [id number] Auto-Generated Referral /[id number] / ProceduresReferred By ContactReferred To ContactCT IMAGING Diagnoses Chronic low back pain, unspecified back pain laterality, unspecified whether sciatica present Procedures CT LUMBAR SPINE WO IVCON CT LUMBAR SPINE W/O CONTRAST MATERIAL Katherine Keith MD [address] [place] [address] Ct Imaging [place] [address] Ref[facility] IDStatus[facility] DateExpiration DateVisits RequestedVisits [id number] Auto-Generated Referral /[id number] / ProceduresReferred By ContactReferred To ContactXR IMAGING Diagnoses History of lumbar laminectomy for spinal cord decompression Degenerative scoliosis in adult patient Chronic low back pain, unspecified back pain laterality, unspecified whether sciatica present Procedures XR SCOLIOSIS PA STAND/LAT 2V RADEX ENTIR THRC LMBR CRV SAC SPI W/SKULL 2/3 VW Katherine Keith MD [address] [place] [address] X[facility] [place] [address] Referral IDStatusReasonStart DateExpiration DateVisits RequestedVisits [id number] Auto-Generated Referral [id number] / ProceduresReferred By ContactReferred To ContactCT IMAGING Diagnoses Chronic low back pain, unspecified back pain laterality, unspecified whether sciatica present Procedures CT LUMBAR SPINE WO IVCON CT LUMBAR SPINE W/O CONTRAST MATERIAL Katherine Keith MD [address] [place] [address] Ct Imaging [place] [address] Referral IDStatusReasonStart DateExpiration DateVisits RequestedVisits [id number] Auto-Generated Referral Additional Source Comments (unrecognized sect ion and content) No Status Records FoundNo Status Records FoundNo Status Records FoundNo Status Records FoundNo Status Records FoundNo Status Records FoundNo Status Records FoundNo Status Records FoundNo Status Records FoundNo Status Records FoundNo Status Records Found INFORMATION SOURCE (unrecogn ized section and content) DATE CREATED AUTHOR 05/16/2020 [facility] DATE CREATED AUTHOR AUTHOR'S ORGANIZ ATION 09/06/2020 [facility] DATE CREATED AUTHOR AUTHOR'S ORGANIZ ATION 05/18/2022 [facility] DATE CREATED AUTHOR AUTHOR'S ORGANIZ ATION 06/13/2022 [facility] DATE CREATED AUTHOR AUTHOR'S ORGANIZ ATION 08/18/2023 [facility] DATE CREATED AUTHOR AUTHOR'S ORGANIZ ATION 05/16/2024 [facility] DATE CREATED AUTHOR AUTHOR'S ORGANIZ ATION 07/17/2024 [facility] DATE CREATED AUTHOR AUTHOR'S ORGANIZ ATION 10/02/2024 [facility] DATE CREATED AUTHOR AUTHOR'S ORGANIZ ATION 10/08/2024 [facility] DATE CREATED AUTHOR AUTHOR'S ORGANIZ ATION 11/24/2024 [facility] DATE CREATED AUTHOR AUTHOR'S ORGANIZ ATION 12/28/2024 [facility] Patient Care team informatio n (unrecognized section and content) Team Status: Active Member Role Status Deidre Cain MD Primary Care Provider Active Team Status: Inactive Member Role Status Deidre Cain MD Primary Care Provider Active Shae Guillory , [facility] ProviderActiveTeam MemberRelationshipSpecialtyStart DateEnd Date Ester Cain MD PCP - General05/05/06Team MemberRelationshipSpecialtyStart DateEnd Date Ester Cain MD PCP - General05/05/06Team MemberRelationshipSpecialtyStart DateEnd Date Ester Cain MD PCP - General05/05/06Team MemberRelationshipSpecialtyStart DateEnd Date Ester Cain MD PCP - General05/05/06Team MemberRelationshipSpecialtyStart DateEnd Date Ester Cain MD PCP - General05/05/06am MemberRelationshipSpecialtyStart DateEnd Date Ester Cain MD PCP - General05/05/06Team MemberRelationshipSpecialtyStart DateEnd Date Ester Cain MD PCP - General05/05/06Team MemberRelationshipSpecialtyStart DateEnd Date Ester Cain MD PCP - General05/05/06Team MemberRelationshipSpecialtyStart DateEnd Date Ester Cain MD [facility]05/05/06Te MemberRelationshipSpecialtyStart DateEnd Date Ester Cain MD [facility] [place] [address]Te MemberRelationshipSpecialtyStart DateEnd Date Ester Cain MD [facility]05/05/06Te MemberRelationshipSpecialtyStart DateEnd Date Ester Cain MD [facility]05/05/06Te MemberRelationshipSpecialtyStart DateEnd Date Ester Cain MD [facility]05/05/06Te MemberRelationshipSpecialtyStart DateEnd Date Ester Cain MD [facility]05/05/06Te MemberRelationshipSpecialtyStart DateEnd Date Ester Cain MD P[facility] - [facility]05/05/06Te MemberRelationshipSpecialtyStart DateEnd Date Ester Cain MD PCP - [facility]05/05/06Te MemberRelationshipSpecialtyStart DateEnd Date Ester Cain MD PCP - [place] [address]Team MemberRelationshipSpecialtyStart DateEnd Date Ester Cain MD PCP - General05/05/06Team MemberRelationshipSpecialtyStart DateEnd Date Ester Cain MD PCP - General05/05/06 Katherine Keith Md, [facility]09/07/23Team MemberRelationshipSpecialtyStart DateEnd Date Ester Cain MD PCP - General05/05/06 Katherine Keith Md, [facility]09/07/23Team MemberRelationshipSpecialtyStart DateEnd Date Ester Cain MD PCP - General05/05/06 Katherine Keith Md, MD [facility]09/07/23Team MemberRelationshipSpecialtyStart DateEnd Date Ester Cain MD PCP - General05/05/06 Katherine Keith Md, [facility]09/07/23Team MemberRelationshipSpecialtyStart DateEnd Date Ester Cain MD PCP - General05/05/06 Katherine Keith Md, [facility]09/07/23Team MemberRelationshipSpecialtyStart DateEnd Date Ester Cain MD PCP - General05/05/06 Katherine Keith Md, [facility]09/07/23Team MemberRelationshipSpecialtyStart DateEnd Date Ester Cain MD PCP - General05/05/06 Katherine Keith Md, [facility]09/07/23Team MemberRelationshipSpecialtyStart DateEnd Date Ester Cain MD PCP - [facility]05/05/06 Katherine Keith Md, MD [facility]09/07/23Team MemberRelationshipSpecialtyStart DateEnd Date Ester Cain MD PCP - [facility]05/05/06 Katherine Keith Md, MD [facility]09/07/23Team MemberRelationshipSpecialtyStart DateEnd Date Ester Cain MD PCP - [facility]05/05/06 Katherine Keith Md, MD [facility]09/07/23Team MemberRelationshipSpecialtyStart DateEnd Date Ester Cain MD PCP - [facility]05/05/06 Katherine Keith Md, MD [facility]09/07/23Team MemberRelationshipSpecialtyStart DateEnd Date Ester Cain MD PCP - [facility]05/05/06 Katherine Keith Md, MD [facility]09/07/23Team MemberRelationshipSpecialtyStart DateEnd Date Ester Cain MD PCP - [facility]05/05/06 Katherine Keith Md, MD [facility]09/07/23Team MemberRelationshipSpecialtyStart DateEnd Date Ester Cain MD PCP - General05/05/06 Katherine Keith Md, MD [facility]09/07/23Team MemberRelationshipSpecialtyStart DateEnd Date Ester Cain MD PCP - General05/05/06 Katherine Keith Md, MD [facility]09/07/23Team MemberRelationshipSpecialtyStart DateEnd Date Ester Cain MD PCP - General05/05/06 Katherine Keith Md, MD [facility]09/07/23Team MemberRelationshipSpecialtyStart DateEnd Date Ester Cain MD PCP - [facility]05/05/06 Katherine Keith Md, MD [facility]09/07/23 Team Status: Inactive Member Role Status Dates Ester Cain MD Primary Care Provider Active Start: November 26, 2023 End: November 26, 2023Micashley Agustin MD FACSAttending ProviderActiveStart: November 26, 2023 End: November 26, 2023Team MemberRelationshipSpecialtyStart DateEnd Date Ester Cain MD PCP - [facility]05/05/06 Katherine Keith Md, MD [facility]09/07/23Team MemberRelationshipSpecialtyStart DateEnd Date Ester Cain MD PCP - [facility]05/05/06 Katherine Keith Md, MD [facility]09/07/23Team MemberRelationshipSpecialtyStart DateEnd Date Ester Cain MD PCP - General05/05/06 Katherine Keith Md, MD [facility]09/07/23Team MemberRelationshipSpecialtyStart DateEnd Date Ester Cain MD PCP - General05/05/06 Katherine Keith Md, MD [facility]09/07/23Team MemberRelationshipSpecialtyStart DateEnd Date Ester Cain MD PCP - General05/05/06 Katherine Keith Md, MD [facility]09/07/23Team MemberRelationshipSpecialtyStart DateEnd Date Ester Cain MD PCP - General05/05/06 Katherine Keith Md, MD [facility]09/07/23Team MemberRelationshipSpecialtyStart DateEnd Date Ester Cain MD PCP - General05/05/06 Katherine Keith Md, MD [facility]09/07/23Team MemberRelationshipSpecialtyStart DateEnd Date Ester Cain MD PCP - General05/05/06 Katherine Keith Md, MD [facility]09/07/23Team MemberRelationshipSpecialtyStart DateEnd Date Ester Cain MD PCP - General2 Katherine Keith Md, MD [facility]09/07/23Team MemberRelationshipSpecialtyStart DateEnd Date Ester Cain MD PCP - General2 Katherine Keith Md, MD [facility]09/07/23Team MemberRelationshipSpecialtyStart DateEnd Date Ester Cain MD PCP - General05/05/06 Katherine Keith Md, MD [facility]09/07/23Team MemberRelationshipSpecialtyStart DateEnd Date Ester Cain MD PCP - General05/05/06 Katherine Keith Md, MD [facility]09/07/23Team MemberRelationshipSpecialtyStart DateEnd Date Ester Cain MD PCP - General05/05/06 Katherine Keith Md, MD [facility]09/07/23Team MemberRelationshipSpecialtyStart DateEnd Date Ester Cain MD PCP - General05/05/06 Katherine Keith Md, MD [facility]09/07/23Team MemberRelationshipSpecialtyStart DateEnd Date Ester Cain MD PCP - General05/05/06 Katherine Keith Md, MD [facility]09/07/23Team MemberRelationshipSpecialtyStart DateEnd Date Ester Cain MD PCP - General05/05/06 Katherine Keith Md, MD [facility]09/07/23Team MemberRelationshipSpecialtyStart DateEnd Date Ester Cain MD PCP - General05/05/06 Katherine Keith Md, MD [facility]09/07/23Team MemberRelationshipSpecialtyStart DateEnd Date Ester Cain MD PCP - General05/05/06 Katherine Keith Md, [facility]09/07/23Team MemberRelationshipSpecialtyStart DateEnd Date Ester Cain MD PCP - General05/05/06 Katherine Keith Md, MD [facility]09/07/23Team MemberRelationshipSpecialtyStart DateEnd Date Ester Cain MD PCP - General05/05/06 Katherine Keith Md, MD [facility]09/07/23Team MemberRelationshipSpecialtyStart DateEnd Date Ester Cain MD PCP - General05/05/06 Katherine Keith Md, MD [facility]09/07/23Team MemberRelationshipSpecialtyStart DateEnd Date Ester Cain MD PCP - General05/05/06 Katherine Keith Md, MD [facility]09/07/23Team MemberRelationshipSpecialtyStart DateEnd Date Ester Cain MD PCP - General05/05/06 Katherine Keith Md, MD [facility]09/07/23Team MemberRelationshipSpecialtyStart DateEnd Date Ester Cain MD PCP - General05/05/06 Katherine Keith Md, MD [facility]09/07/23Team MemberRelationshipSpecialtyStart DateEnd Date Ester Cain MD [address] [place] [address] PCP - [facility]09/08/24 Team Status: Inactive Member Role Status Dates Ester Cain MD Primary Care Provider Active Start: September 27, 2024 End: September 27, 2024Eubinta Gray , DPMAttending ProviderActiveStart: September 27, 2024 End: September 27, 2024 Team Status: Inactive Member Role Status Dates Ester Cain MD Primary Care Provider Active Start: October 06, 2024 End: October 06, 2024Citlali Black , CUBE CUTTER-CAttending ProviderActiveStart: October 06, 2024 End: October 06, 2024Team MemberRelationshipSpecialtyStart DateEnd Date Ester Cain MD [address] [place] [facility] [place] [id number] PCP - [facility]09/08/24Team MemberRelationshipSpecialtyStart DateEnd Date Ester Cain MD [address] [place] [address] PCP - [facility]09/08/24Team MemberRelationshipSpecialtyStart DateEnd Date Ester Cain MD [address] [place] [address] PCP - [facility]09/08/24 Goals (unrecognized section and content) Goals may be documented in a n alternate section Source Comments (unrecognize d section and content) In the event this informatio n is protected by the Federal Confidentiality of Alcohol and Drug Abuse Patient Records regulations: The Federal rules restrict any use of the information to criminally investigate or prosecute any alcohol or drug abuse patient.[facility]In the event this information is protected by the Federal Confidentiality of Alcohol and Drug Abuse Patient Records regulations: The Federal rules restrict any use of the information to criminally investigate or prosecute any alcohol or drug abuse patient.[facility]edoIn the event this information is protected by the Federal Confidentiality of Alcohol and Drug Abuse Patient Records regulations: The Federal rules restrict any use of the information to criminally investigate or prosecute any alcohol or drug abuse patient.[facility]edoIn the event this information is protected by the Federal Confidentiality of Alcohol and Drug Abuse Patient Records regulations: The Federal rules restrict any use of the information to criminally investigate or prosecute any alcohol or drug abuse patient.[facility]edoIn the event this information is protected by the Federal Confidentiality of Alcohol and Drug Abuse Patient Records regulations: The Federal rules restrict any use of the information to criminally investigate or prosecute any alcohol or drug abuse patient.[facility]edoIn the event this information is protected by the Federal Confidentiality of Alcohol and Drug Abuse Patient Records regulations: The Federal rules restrict any use of the information to criminally investigate or prosecute any alcohol or drug abuse patient.[facility]edoIn the event this information is protected by the Federal Confidentiality of Alcohol and Drug Abuse Patient Records regulations: The Federal rules restrict any use of the information to criminally investigate or prosecute any alcohol or drug abuse patient.[facility]edoIn the event this information is protected by the Federal Confidentiality of Alcohol and Drug Abuse Patient Records regulations: The Federal rules restrict any use of the information to criminally investigate or prosecute any alcohol or drug abuse patient.[facility]edoIn the event this information is protected by the Federal Confidentiality of Alcohol and Drug Abuse Patient Records regulations: The Federal rules restrict any use of the information to criminally investigate or prosecute any alcohol or drug abuse patient.[facility]edoIn the event this information is protected by the Federal Confidentiality of Alcohol and Drug Abuse Patient Records regulations: The Federal rules restrict any use of the information to criminally investigate or prosecute any alcohol or drug abuse patient.[facility]edoIn the event this information is protected by the Federal Confidentiality of Alcohol and Drug Abuse Patient Records regulations: The Federal rules restrict any use of the information to criminally investigate or prosecute any alcohol or drug abuse patient.[facility]edoIn the event this information is protected by the Federal Confidentiality of Alcohol and Drug Abuse Patient Records regulations: The Federal rules restrict any use of the information to criminally investigate or prosecute any alcohol or drug abuse patient.[facility]edoIn the event this information is protected by the Federal Confidentiality of Alcohol and Drug Abuse Patient Records regulations: The Federal rules restrict any use of the information to criminally investigate or prosecute any alcohol or drug abuse patient.[facility]edoIn the event this information is protected by the Federal Confidentiality of Alcohol and Drug Abuse Patient Records regulations: The Federal rules restrict any use of the information to criminally investigate or prosecute any alcohol or drug abuse patient.[facility]edoIn the event this information is protected by the Federal Confidentiality of Alcohol and Drug Abuse Patient Records regulations: The Federal rules restrict any use of the information to criminally investigate or prosecute any alcohol or drug abuse patient.[facility]edoIn the event this information is protected by the Federal Confidentiality of Alcohol and Drug Abuse Patient Records regulations: The Federal rules restrict any use of the information to criminally investigate or prosecute any alcohol or drug abuse patient.[facility]edoIn the event this information is protected by the Federal Confidentiality of Alcohol and Drug Abuse Patient Records regulations: The Federal rules restrict any use of the information to criminally investigate or prosecute any alcohol or drug abuse patient.[facility]edoIn the event this information is protected by the Federal Confidentiality of Alcohol and Drug Abuse Patient Records regulations: The Federal rules restrict any use of the information to criminally investigate or prosecute any alcohol or drug abuse patient.[facility]edoIn the event this information is protected by the Federal Confidentiality of Alcohol and Drug Abuse Patient Records regulations: The Federal rules restrict any use of the information to criminally investigate or prosecute any alcohol or drug abuse patient.[facility]edoIn the event this information is protected by the Federal Confidentiality of Alcohol and Drug Abuse Patient Records regulations: The Federal rules restrict any use of the information to criminally investigate or prosecute any alcohol or drug abuse patient.[facility]edoIn the event this information is protected by the Federal Confidentiality of Alcohol and Drug Abuse Patient Records regulations: The Federal rules restrict any use of the information to criminally investigate or prosecute any alcohol or drug abuse patient.[facility]edoIn the event this information is protected by the Federal Confidentiality of Alcohol and Drug Abuse Patient Records regulations: The Federal rules restrict any use of the information to criminally investigate or prosecute any alcohol or drug abuse patient.[facility]edoIn the event this information is protected by the Federal Confidentiality of Alcohol and Drug Abuse Patient Records regulations: The Federal rules restrict any use of the information to criminally investigate or prosecute any alcohol or drug abuse patient.[facility]edoIn the event this information is protected by the Federal Confidentiality of Alcohol and Drug Abuse Patient Records regulations: The Federal rules restrict any use of the information to criminally investigate or prosecute any alcohol or drug abuse patient.[facility]edoIn the event this information is protected by the Federal Confidentiality of Alcohol and Drug Abuse Patient Records regulations: The Federal rules restrict any use of the information to criminally investigate or prosecute any alcohol or drug abuse patient.[facility]edoIn the event this information is protected by the Federal Confidentiality of Alcohol and Drug Abuse Patient Records regulations: The Federal rules restrict any use of the information to criminally investigate or prosecute any alcohol or drug abuse patient.[facility]edoIn the event this information is protected by the Federal Confidentiality of Alcohol and Drug Abuse Patient Records regulations: The Federal rules restrict any use of the information to criminally investigate or prosecute any alcohol or drug abuse patient.[facility]edoIn the event this information is protected by the Federal Confidentiality of Alcohol and Drug Abuse Patient Records regulations: The Federal rules restrict any use of the information to criminally investigate or prosecute any alcohol or drug abuse patient.[facility]edoIn the event this information is protected by the Federal Confidentiality of Alcohol and Drug Abuse Patient Records regulations: The Federal rules restrict any use of the information to criminally investigate or prosecute any alcohol or drug abuse patient.[facility]edoIn the event this information is protected by the Federal Confidentiality of Alcohol and Drug Abuse Patient Records regulations: The Federal rules restrict any use of the information to criminally investigate or prosecute any alcohol or drug abuse patient.[facility]edoIn the event this information is protected by the Federal Confidentiality of Alcohol and Drug Abuse Patient Records regulations: The Federal rules restrict any use of the information to criminally investigate or prosecute any alcohol or drug abuse patient.[facility]edoIn the event this information is protected by the Federal Confidentiality of Alcohol and Drug Abuse Patient Records regulations: The Federal rules restrict any use of the information to criminally investigate or prosecute any alcohol or drug abuse patient.[facility]edoIn the event this information is protected by the Federal Confidentiality of Alcohol and Drug Abuse Patient Records regulations: The Federal rules restrict any use of the information to criminally investigate or prosecute any alcohol or drug abuse patient.[facility]edoIn the event this information is protected by the Federal Confidentiality of Alcohol and Drug Abuse Patient Records regulations: The Federal rules restrict any use of the information to criminally investigate or prosecute any alcohol or drug abuse patient.[facility]edoIn the event this information is protected by the Federal Confidentiality of Alcohol and Drug Abuse Patient Records regulations: The Federal rules restrict any use of the information to criminally investigate or prosecute any alcohol or drug abuse patient.[facility]edoIn the event this information is protected by the Federal Confidentiality of Alcohol and Drug Abuse Patient Records regulations: The Federal rules restrict any use of the information to criminally investigate or prosecute any alcohol or drug abuse patient.[facility]edoIn the event this information is protected by the Federal Confidentiality of Alcohol and Drug Abuse Patient Records regulations: The Federal rules restrict any use of the information to criminally investigate or prosecute any alcohol or drug abuse patient.[facility]edoIn the event this information is protected by the Federal Confidentiality of Alcohol and Drug Abuse Patient Records regulations: The Federal rules restrict any use of the information to criminally investigate or prosecute any alcohol or drug abuse patient.[facility]edoIn the event this information is protected by the Federal Confidentiality of Alcohol and Drug Abuse Patient Records regulations: The Federal rules restrict any use of the information to criminally investigate or prosecute any alcohol or drug abuse patient.[facility]edoIn the event this information is protected by the Federal Confidentiality of Alcohol and Drug Abuse Patient Records regulations: The Federal rules restrict any use of the information to criminally investigate or prosecute any alcohol or drug abuse patient.[facility]edoIn the event this information is protected by the Federal Confidentiality of Alcohol and Drug Abuse Patient Records regulations: The Federal rules restrict any use of the information to criminally investigate or prosecute any alcohol or drug abuse patient.[facility]edoIn the event this information is protected by the Federal Confidentiality of Alcohol and Drug Abuse Patient Records regulations: The Federal rules restrict any use of the information to criminally investigate or prosecute any alcohol or drug abuse patient.[facility]edoIn the event this information is protected by the Federal Confidentiality of Alcohol and Drug Abuse Patient Records regulations: The Federal rules restrict any use of the information to criminally investigate or prosecute any alcohol or drug abuse patient.[facility]edoIn the event this information is protected by the Federal Confidentiality of Alcohol and Drug Abuse Patient Records regulations: The Federal rules restrict any use of the information to criminally investigate or prosecute any alcohol or drug abuse patient.[facility]edoIn the event this information is protected by the Federal Confidentiality of Alcohol and Drug Abuse Patient Records regulations: The Federal rules restrict any use of the information to criminally investigate or prosecute any alcohol or drug abuse patient.[facility]edoIn the event this information is protected by the Federal Confidentiality of Alcohol and Drug Abuse Patient Records regulations: The Federal rules restrict any use of the information to criminally investigate or prosecute any alcohol or drug abuse patient.[facility]edoIn the event this information is protected by [...] or prosecute any alcohol or drug abuse patient.[facility]edoIn the event this information is protected by the Federal Confidentiality of Alcohol and Drug Abuse Patient Records regulations: The Federal rules restrict any use of the information to criminally investigate or prosecute any alcohol or drug abuse patient.[facility]edoIn the event this information is protected by the Federal Confidentiality of Alcohol and Drug Abuse Patient Records regulations: The Federal rules restrict any use of the information to criminally investigate or prosecute any alcohol or drug abuse patient.[facility]edoIn the event this information is protected by the Federal Confidentiality of Alcohol and Drug Abuse Patient Records regulations: The Federal rules restrict any use of the information to criminally investigate or prosecute any alcohol or drug abuse patient.[facility]edoIn the event this information is protected by the Federal Confidentiality of Alcohol and Drug Abuse Patient Records regulations: The Federal rules restrict any use of the information to criminally investigate or prosecute any alcohol or drug abuse patient.[facility]edoIn the event this information is protected by the Federal Confidentiality of Alcohol and Drug Abuse Patient Records regulations: The Federal rules restrict any use of the information to criminally investigate or prosecute any alcohol or drug abuse patient.[facility]edoIn the event this information is protected by the Federal Confidentiality of Alcohol and Drug Abuse Patient Records regulations: The Federal rules restrict any use of the information to criminally investigate or prosecute any alcohol or drug abuse patient.[facility]edoIn the event this information is protected by the Federal Confidentiality of Alcohol and Drug Abuse Patient Records regulations: The Federal rules restrict any use of the information to criminally investigate or prosecute any alcohol or drug abuse patient.[facility]edoIn the event this information is protected by the Federal Confidentiality of Alcohol and Drug Abuse Patient Records regulations: The Federal rules restrict any use of the information to criminally investigate or prosecute any alcohol or drug abuse patient.[facility]edoIn the event this information is protected by the Federal Confidentiality of Alcohol and Drug Abuse Patient Records regulations: The Federal rules restrict any use of the information to criminally investigate or prosecute any alcohol or drug abuse patient.[facility]edoIn the event this information is protected by the Federal Confidentiality of Alcohol and Drug Abuse Patient Records regulations: The Federal rules restrict any use of the information to criminally investigate or prosecute any alcohol or drug abuse patient.[facility]edoIn the event this information is protected by the Federal Confidentiality of Alcohol and Drug Abuse Patient Records regulations: The Federal rules restrict any use of the information to criminally investigate or prosecute any alcohol or drug abuse patient.[facility]edoIn the event this information is protected by the Federal Confidentiality of Alcohol and Drug Abuse Patient Records regulations: The Federal rules restrict any use of the information to criminally investigate or prosecute any alcohol or drug abuse patient.[facility]edoIn the event this information is protected by the Federal Confidentiality of Alcohol and Drug Abuse Patient Records regulations: The Federal rules restrict any use of the information to criminally investigate or prosecute any alcohol or drug abuse patient.[facility]edoIn the event this information is protected by the Federal Confidentiality of Alcohol and Drug Abuse Patient Records regulations: The Federal rules restrict any use of the information to criminally investigate or prosecute any alcohol or drug abuse patient.[facility]edoIn the event this information is protected by the Federal Confidentiality of Alcohol and Drug Abuse Patient Records regulations: The Federal rules restrict any use of the information to criminally investigate or prosecute any alcohol or drug abuse patient.[facility]edoIn the event this information is protected by the Federal Confidentiality of Alcohol and Drug Abuse Patient Records regulations: The Federal rules restrict any use of the information to criminally investigate or prosecute any alcohol or drug abuse patient.[facility]edoIn the event this information is protected by the Federal Confidentiality of Alcohol and Drug Abuse Patient Records regulations: The Federal rules restrict any use of the information to criminally investigate or prosecute any alcohol or drug abuse patient.[facility]edoIn the event this information is protected by the Federal Confidentiality of Alcohol and Drug Abuse Patient Records regulations: The Federal rules restrict any use of the information to criminally investigate or prosecute any alcohol or drug abuse patient.[facility]edoIn the event this information is protected by the Federal Confidentiality of Alcohol and Drug Abuse Patient Records regulations: The Federal rules restrict any use of the information to criminally investigate or prosecute any alcohol or drug abuse patient.[facility]edoIn the event this information is protected by the Federal Confidentiality of Alcohol and Drug Abuse Patient Records regulations: The Federal rules restrict any use of the information to criminally investigate or prosecute any alcohol or drug abuse patient.[facility]edoIn the event this information is protected by the Federal Confidentiality of Alcohol and Drug Abuse Patient Records regulations: The Federal rules restrict any use of the information to criminally investigate or prosecute any alcohol or drug abuse patient.[facility]edoIn the event this information is protected by the Federal Confidentiality of Alcohol and Drug Abuse Patient Records regulations: The Federal rules restrict any use of the information to criminally investigate or prosecute any alcohol or drug abuse patient.[facility]edoIn the event this information is protected by the Federal Confidentiality of Alcohol and Drug Abuse Patient Records regulations: The Federal rules restrict any use of the information to criminally investigate or prosecute any alcohol or drug abuse patient.[facility]edoIn the event this information is protected by the Federal Confidentiality of Alcohol and Drug Abuse Patient Records regulations: The Federal rules restrict any use of the information to criminally investigate or prosecute any alcohol or drug abuse patient.[facility]edoIn the event this information is protected by the Federal Confidentiality of Alcohol and Drug Abuse Patient Records regulations: The Federal rules restrict any use of the information to criminally investigate or prosecute any alcohol or drug abuse patient.[facility]edoIn the event this information is protected by the Federal Confidentiality of Alcohol and Drug Abuse Patient Records regulations: The Federal rules restrict any use of the information to criminally investigate or prosecute any alcohol or drug abuse patient.[facility]edoIn the event this information is protected by the Federal Confidentiality of Alcohol and Drug Abuse Patient Records regulations: The Federal rules restrict any use of the information to criminally investigate or prosecute any alcohol or drug abuse patient.[facility]edoIn the event this information is protected by the Federal Confidentiality of Alcohol and Drug Abuse Patient Records regulations: The Federal rules restrict any use of the information to criminally investigate or prosecute any alcohol or drug abuse patient.[facility]edoIn the event this information is protected by the Federal Confidentiality of Alcohol and Drug Abuse Patient Records regulations: The Federal rules restrict any use of the information to criminally investigate or prosecute any alcohol or drug abuse patient.[facility]edoIn the event this information is protected by the Federal Confidentiality of Alcohol and Drug Abuse Patient Records regulations: The Federal rules restrict any use of the information to criminally investigate or prosecute any alcohol or drug abuse patient.[facility]edoIn the event this information is protected by the Federal Confidentiality of Alcohol and Drug Abuse Patient Records regulations: The Federal rules restrict any use of the information to criminally investigate or prosecute any alcohol or drug abuse patient.[facility]edoIn the event this information is protected by the Federal Confidentiality of Alcohol and Drug Abuse Patient Records regulations: The Federal rules restrict any use of the information to criminally investigate or prosecute any alcohol or drug abuse patient.[facility]edoIn the event this information is protected by the Federal Confidentiality of Alcohol and Drug Abuse Patient Records regulations: The Federal rules restrict any use of the information to criminally investigate or prosecute any alcohol or drug abuse patient.[facility]edoIn the event this information is protected by the Federal Confidentiality of Alcohol and Drug Abuse Patient Records regulations: The Federal rules restrict any use of the information to criminally investigate or prosecute any alcohol or drug abuse patient.[facility]edoIn the event this information is protected by the Federal Confidentiality of Alcohol and Drug Abuse Patient Records regulations: The Federal rules restrict any use of the information to criminally investigate or prosecute any alcohol or drug abuse patient.[facility]edoIn the event this information is protected by the Federal Confidentiality of Alcohol and Drug Abuse Patient Records regulations: The Federal rules restrict any use of the information to criminally investigate or prosecute any alcohol or drug abuse patient.[facility]edoIn the event this information is protected by the Federal Confidentiality of Alcohol and Drug Abuse Patient Records regulations: The Federal rules restrict any use of the information to criminally investigate or prosecute any alcohol or drug abuse patient.[facility]edoIn the event this information is protected by the Federal Confidentiality of Alcohol and Drug Abuse Patient Records regulations: The Federal rules restrict any use of the information to criminally investigate or prosecute any alcohol or drug abuse patient.[facility]edoIn the event this information is protected by the Federal Confidentiality of Alcohol and Drug Abuse Patient Records regulations: The Federal rules restrict any use of the information to criminally investigate or prosecute any alcohol or drug abuse patient.[facility]edoIn the event this information is protected by the Federal Confidentiality of Alcohol and Drug Abuse Patient Records regulations: The Federal rules restrict any use of the information to criminally investigate or prosecute any alcohol or drug abuse patient.[facility]edoIn the event this information is protected by the Federal Confidentiality of Alcohol and Drug Abuse Patient Records regulations: The Federal rules restrict any use of the information to criminally investigate or prosecute any alcohol or drug abuse patient.[facility]edoIn the event this information is protected by the Federal Confidentiality of Alcohol and Drug Abuse Patient Records regulations: The Federal rules restrict any use of the information to criminally investigate or prosecute any alcohol or drug abuse patient.[facility] Reason for Visit (unrecogniz ed section and content) ReasonCommentsRadio Gen I91YyaxymqklCsczhbtbq / ProceduresReferred By Contact Referred To ContactXR IMAGING Diagnoses History of lumbar laminectomy for spinal cord decompression Degenerative scoliosis in adult patient Chronic low back pain, unspecified back pain laterality, unspecified whether sciatica present Procedures XR SCOLIOSIS PA STAND/LAT 2V RADEX ENTIR THRC LMBR CRV SAC SPI W/SKULL 2/3 VW Katherine Keith MD [address] [place] [address] Xr [facility] [place] [address] Referral IDStatusReasonStart DateExpiration DateVisits RequestedVisits [id number] Auto-Generated Referral /[id number] Main Y1KcbtnivmcGkpojusfy / Procedures Referred By ContactReferred To ContactXR IMAGING Diagnoses Spinal stenosis, lumbar region with neurogenic claudication Procedures XR LUMBAR MOTION 4V AP/LAT/ FLEX/EXT RADEX SPINE LUMBOSACRAL MINIMUM 4 VIEWS Alfonso Loyd PA-C [address] [place] [address] [facility] [place] [address] Referral IDStatusReasonStart DateExpiration DateVisits RequestedVisits [id number] Auto-Generated Referral /[id number] / ProceduresReferred By ContactReferred To ContactCT IMAGING Diagnoses Chronic low back pain, unspecified back pain laterality, unspecified whether sciatica present Procedures CT LUMBAR SPINE WO IVCON CT LUMBAR SPINE W/O CONTRAST MATERIAL Katherine Keith MD [address] [place] [address] Ct [facility] [place] [address] Referral IDStatusReasonStart DateExpiration DateVisits RequestedVisits [id number] Auto-Generated Referral /[id number] PatientReasonCommentsSchedule Surgery ReasonCommentsFormsReasonCommentsPatient UpdateReasonCommentsBlood Management ReasonCommentsFollow UpReasonCommentsEstablished PatientReasonCommentsMedication ProblemReasonOnset DateCommentsRefill Pzzyeey53/25/2024ReasonOnset DateComments Refill Orjkehy66/28/2024ReasonOnset DateCommentsRefill Xcdvyxm90/11/2024Reason CommentsCARE CONTINUUM ADVISOR ASSESSMENTReasonCommentsResearchReasonOnset Date CommentsRefill Hsnbaeo77/07/2024ReasonCommentsmedicationReasonComments Established PatientReasonOnset DateCommentsRefill Jatypsp09/21/2024ReasonOnset DateCommentsRefill Jvvwozn52/28/2024ReasonCommentsInsurance Authorization SpecialtyDiagnoses / ProceduresReferred By ContactReferred To ContactXR IMAGING Diagnoses History of laminectomy Degenerative scoliosis in adult patient Procedures XR LUMBAR LIMITED 2V AP/LAT RADEX SPINE LUMBOSACRAL 2/3 VIEWS Alfonso Loyd PA-C [address] [place] [address] X[facility] [place] [address] Referral IDStatusReasonStart DateExpiration DateVisits RequestedVisits [id number] Auto-Generated Referral /[id number] OpReasonCommentsCare Coordinator - Other ReasonOnset DateCommentsRefill Yrsejql03/14/2024ReasonCommentsEstablished PatientFollow UpSpecialtyDiagnoses / ProceduresReferred By ContactReferred To ContactMR IMAGING Diagnoses Adverse effect of treatment, sequela Procedures MRI LUMBAR SPINE WO IVCON MRI SPINAL CANAL LUMBAR W/O CONTRAST MATERIAL Katherine Keith MD [address] [facility] [place] [id number] Mr [facility] [place] [address] Referral IDStatusReasonRanburne DateExpiration DateVisits RequestedVisits [id number] Auto-Generated Referral [id number] / ProceduresReferred By ContactReferred To [facility] Diagnoses Adverse effect of treatment, sequela Procedures MRI THORACIC SPINE WO IVCON MRI SPINAL CANAL THORACIC W/O CONTRAST MATRL Katherine Keith MD [address] [place] [address] Mr Imaging [place] [address] [facility]Status[facility] DateExpiration DateVisits RequestedVisits [id number] Auto-Generated Referral [id number] / ProceduresReferred By ContactReferred To ContactDC IMAGING Diagnoses Acute low back pain, unspecified back pain laterality, unspecified whether sciatica present Procedures CT LUMBAR SPINE WO IVCON CT LUMBAR SPINE W/O CONTRAST MATERIAL Katherine Keith MD [address] [place] [address] Ct [facility] [place] [address] Referral [facility] DateExpiration DateVisits RequestedVisits [id number] Auto-Generated Referral 1ReasonOnset SovkHqoqbkodDGE05/06/2024SpecialtyDiagnoses / ProceduresReferred By ContactReferred [facility] Diagnoses Adverse effect of treatment, sequela Procedures EMG(NEURO/NI) NERVE CONDUCTION STUDIES 9-10 STUDIES Katherine Keith MD [address] [place] [address] [facility] [place] [address] [place] [address] Referral IDStat[facility] DateExpiration DateVisits RequestedVisits [id number] Auto-Generated Referral [id number] MRISpecialtyDiagnoses / Procedures Referred By ContactReferred To ContactMR IMAGING Diagnoses Spinal stenosis of cervical region Procedures MRI CERVICAL SPINE WO IVCON MRI SPINAL CANAL CERVICAL W/O CONTRAST Alfonso Campos PA-C [address] [place] [address] Mr Imaging [facility] Referral IDStatusReasonStart DateExpiration DateVisits RequestedVisits [id number] Auto-Generated Referral [id number] Of CareReasonCommentsPost Op ReasonOnset DateCommentsRefill Duksoqm3006/21/2024ReasonOnset DateCommentsRefill Qyxyfdb9606/28/2024 FOR RECORDS PERTAINING TO PATIENTS WHO ARE [...] BE BASED ON THE PRIMARY CLINICAL RECORDS. [employer] provides no warranty or guarantee of the accuracy or completeness of information in this document.
--- OUTSIDE RECORDS SUMMARY | 2025-01-05 07:23 | XMS_ITS | Patient Health Record ---
Author Organization The [facility] [place] Address [address] [place] [address] Care Team Providers Care Audio Visual Engineer Name Role Phone Micheal Cain Primary Care Provider [phone] Allergies Allergen (clinical drug ingredient) Drug/Non Drug Allergy documented on EMR Reaction Allergy Type Onset Date Status methocarbamol Robaxin Unknown Drug Allergy ActivePenicillinhivesDrug AllergyActive Results Component Value Reference Range Notes GLYCOHEMOGLOBIN A1C Reviewed date:09/28/2024 04:08:58 PM Interpretation: Performing Lab: Notes/Report: [facility] , Glycohemoglobin A1C 5.5 4.5-6.2 % ADA RECOMMENDED LIMIT 4.0 - 6.0 ADA THERAPEUTIC TARGET < 7.0 ACTION SUGGESTED > 7.0 Estimated Average Glucose 111 Performing Lab:see noteML - [facility] LBPROF 14(COMP METB) Reviewed date:09/28/2024 04:08:58 PM Interpretation: Performing Lab: Notes/Report: [facility] ,Bcejpr908593-898 mmol/LPotassium4.73.5-5.1 mmol/AWbhzhmgd02678-890 mmol/LCarbon Ropqusj28.921.0-32.0 mmol/LAnion Gap12.9Xrfxucz9786-580 mg/dLBlood Urea Nitrogen 26.07.0-18.0 mg/dLCreatinine1.020.70-1.30 mg/dLEstimated GFR ( Eugenie>60 >=60 mL/min/1.73m 2Estimated GFR (Non- Gracie>60>=60 mL/min/1.73m 2BUN Creatinine Ratio25.9Buzgyso5.58.5-10.1 mg/dLBilirubin Total1.00.2-1.0 mg/dL Aspartate Amino Qfrswovtodh7986-41 U/LAlanine Abnnfwwcqsidkyfe2664-90 U/L Alkaline Xihhflaxtck6836-410 U/LTotal Protein6.66.4-8.2 g/dLAlbumin Level3.83.4- 5.0 g/dLGlobulin2.8Albumin Globulin Ratio1.4Performing Lab:see noteML - [facility] LBUA DIP NONAUTO WO MICRO ([id number]) - IN OFFICE (Not yet reviewed by provider) Interpretation: Performing Lab: Notes/Report: COLORorangeCLARITYclearGLUCOSEnegBILIRUBINnegKETONEnegSPECIFIC GRAVITY1.025BLOOD ywqNF4FGKIMYKowwwuCQZVEUECGRUTanqIGVHVPTbuqOYAKJRMCE ESTERASEnegCA echo doppler complete Reviewed date:10/18/2024 07:58:21 PM Interpretation: Performing Lab: Notes/Report: Source Facility: [place] [address] Cardiology Report Signed Patient: RAZA RODRIGUEZ MR#: [id number] : 1955 Acct:[id number] Age/Sex: 69 / M ADM Date: 10/18/24 Loc: CARD Attending Dr: Ester Cain M.D. Ordering Physician: Ester Cain M.D. Date of Service: 10/18/24 Procedure(s): CA echo doppler complete Accession Number(s): [id number] cc: Ester Cain M.D. Patient Name: RAZA RODRIGUEZ MR#: [id number] : 1955 Exam Date: 10/18/2024 Ordering Doctor: [...] MCCULLOUGH Signed By: 10/18/241901 DD/ 00 TD/TT: Access Coordinator:CBC AUTO DIFF Reviewed date:09/28/2024 04:08:58 PM Interpretation: Performing Lab: Notes/Report: [facility] ,White Blood Count6.34.0-11.0 10 3/uLRed Blood Count4.464.70-6.10 10 6/uL Zjodmtetjd94.914.0-18.0 g/lEPtczyhjlho53.942.0-54.0 %Mean Corpuscular Qyakpw34.7 80.0-94.0 fLMean Corpuscular Wruhmbjqjx81.225.9-34.0 pgMean Corpuscular HGB Conc 34.029.9-35.2 g/dLRed Cell Distribution Width13.711.0-15.0 %Platelet Neups560 150-450 10 3/uLMean Platelet Volume9.49.5-13.5 fLNeutrophils Percent Auto49.8 43.0-75.0 %Lymphocytes Percent Auto32.120.5-60.0 %Monocytes Percent Auto12.61.7- 12.0 %Eosinophils Percent Auto3.90.9-7.0 %Basophils Percent Auto0.80.2-2.0 % Immature Granulocytes Pct Auto0.80.0-0.5 %Neutrophils Absolute Auto3.21.4-6.5 10 3/uLLymphocytes Absolute Auto2.01.2-3.8 10 3/uLMonocytes Absolute Auto0.80.3- 0.8 10 3/uLEosinophils Absolute Auto0.30.0-0.7 10 3/uLBasophils Absolute Auto0.1 0.0-0.1 10 3/uLImmature Granulocytes Abs Auto0.050.00-0.03 10 3/uLPerforming Lab:see noteML - [facility] LBTroponin I High Sensitivity Reviewed date:07/06/2024 12:21:03 PM Interpretation: Performing Lab: Notes/Report: [facility] ,Troponin I High Rpehtltzoya57.04.0-76.1 pg/mL CUT-OFF POINTS HAVE BEEN ESTABLISHED BASED ON THE FOURTH UNIVERSAL DEFINITION OF MYOCARDIAL INFARCTION. THE UPPER REFERENCE LIMIT (URL) OF TROPONIN, DEFINED THE 99TH PERCENTILE OF cTnI DISTRIBUTION IN A REFERENCE POPULATION, HAS BEEN CONFIRMED THE DECISION THRESHOLD FOR [place] DIAGNOSIS. 99TH PERCENTILE = 76.2 PG/ML NOTE: HIGH-SENSITIVITY TROPONIN ASSAY IS NOT INTENDED TO BE USED IN ISOLATION BUT SHOULD BE INTERPRETED IN CONJUNCTION WITH OTHER DIAGNOSTIC AND CLINICAL INFORMATION. Performing Lab:see noteML - [facility] LBTSH Reviewed date:07/06/2024 12:21:03 PM Interpretation: Performing Lab: Notes/Report: [facility] ,Thyroid Stimulating Hormone2.3260.358-3.740 uIU/mLPerforming Lab:see noteML - [facility] LBT4 Reviewed date:07/06/2024 12:21:03 PM Interpretation: Performing Lab: Notes/Report: [facility] ,T4 Thyroxine5.404.50-12.10 ug/dLPerforming Lab:see noteML - [facility] LBPSA SCREENING Reviewed date:07/06/2024 12:21:03 PM Interpretation: Performing Lab: Notes/Report: [facility] ,Prostate Specific Antigen Scrn1.08<=4.00 ng/mLPerforming Lab:see note - [facility] LBPROF 14(COMP METB) Reviewed date:07/06/2024 12:21:03 PM Interpretation: Performing Lab: Notes/Report: [facility] ,Sjhllo809242-282 mmol/LPotassium3.93.5-5.1 mmol/YBmtegncm42174-488 mmol/LCarbon Zmgpwis06.421.0-32.0 mmol/LAnion Gap14.2Gcvjpwq1827-672 mg/dLBlood Urea Lkvzfvli37.07.0-18.0 mg/dLCreatinine0.950.70-1.30 mg/dLEstimated GFR ( Eugenie>60>=60 mL/min/1.73m 2Estimated GFR (Non- Gracie>60>=60 mL/min/1.73m 2BUN Creatinine Ratio21.8Idgzzxv4.28.5-10.1 mg/dLBilirubin Total0.90.2-1.0 mg/dL Aspartate Amino Pdbzrkpxpau0935-85 U/LAlanine Qhwleiwswgywwsmu9297-86 U/L Alkaline Tydflhipctf6305-454 U/LTotal Protein6.16.4-8.2 g/dLAlbumin Level3.63.4- 5.0 g/dLGlobulin2.5Albumin Globulin Ratio1.4Performing Lab:see noteML - [facility] LBLIPID PROFILE Reviewed date:07/06/2024 12:21:03 PM Interpretation: Performing Lab: Notes/Report: [facility] ,Psgizldvtpfua37<=150 mg/rSEmvsjzvdqwu774<=200 mg/dLHDL Zldpexgzrcj9510-31 mg/dL > or =60 mg/dl - LOW CARDIOVASCULAR RISK <40 mg/dl - HIGH CARDIOVASCULAR RISK LDL Cholesterol Juzfkghwpn538.4 <100 mg/dl OPTIMAL 100-129 mg/dl NEAR OR ABOVE OPTIMAL 130-159 mg/dl BORDERLINE HIGH 160-189 mg/dl HIGH >190 mg/dl VERY HIGH VLDL EFMGSPJJZRR19.6Chol HDL Ratio3.8 3.3 - 4.4 LOW RISK 4.4 - 7.1 AVERAGE RISK 7.1 - 11.0 MODERATE RISK >11.0 HIGH RISK Performing Lab:see noteML - [facility] LBGLYCOHEMOGLOBIN A1C Reviewed date:07/06/2024 12:21:03 PM Interpretation: Performing Lab: Notes/Report: [facility] ,Glycohemoglobin A1C5.34.5-6.2 % ADA RECOMMENDED LIMIT 4.0 - 6.0 ADA THERAPEUTIC TARGET < 7.0 ACTION SUGGESTED > 7.0 Estimated Average Zddtmsd252Ufcjsaodte Lab:see noteML - [facility] LB FREE T3 Reviewed date:07/06/2024 12:21:03 PM Interpretation: Performing Lab: Notes/Report: [facility] ,Free T33.522.18-3.98 pg/mLPerforming Lab:see noteML - [facility] LB CBC AUTO DIFF Reviewed date:07/06/2024 12:21:03 PM Interpretation: Performing Lab: Notes/Report: [facility] ,White Blood Count6.94.0-11.0 10 3/uLRed Blood Count3.964.70-6.10 10 6/uL Dduetblxxm48.814.0-18.0 g/eCBslaaziugo40.442.0-54.0 %Mean Corpuscular Agtmga08.4 80.0-94.0 fLMean Corpuscular Bjuccggkwt72.325.9-34.0 pgMean Corpuscular HGB Conc 34.229.9-35.2 g/dLRed Cell Distribution Width12.511.0-15.0 %Platelet Tqlas532 150-450 10 3/uLMean Platelet Qnmlxa07.09.5-13.5 fLNeutrophils Percent Auto40.2 43.0-75.0 %Lymphocytes Percent Auto39.020.5-60.0 %Monocytes Percent Auto14.11.7- 12.0 %Eosinophils Percent Auto5.30.9-7.0 %Basophils Percent Auto0.70.2-2.0 % Immature Granulocytes Pct Auto0.70.0-0.5 %Neutrophils Absolute Auto2.81.4-6.5 10 3/uLLymphocytes Absolute Auto2.71.2-3.8 10 3/uLMonocytes Absolute Auto1.00.3- 0.8 10 3/uLEosinophils Absolute Auto0.40.0-0.7 10 3/uLBasophils Absolute Auto0.1 0.0-0.1 10 3/uLImmature Granulocytes Abs Auto0.050.00-0.03 10 3/uLPerforming Lab:see noteML - [facility] LBXR cervical spine 2-3V Reviewed date:06/29/2024 08:32:50 PM Interpretation: Performing Lab: Notes/Report: Source Facility: [facility]-[address] [place] [address] XRay Report Signed Patient: RAZA RODRIGUEZ MR#: [id number] : 1955 Acct:[id number] Age/Sex: 69 / M ADM Date: 06/29/24 Loc: RAD Attending Dr: Trupti-Staff Physician Fields Ordering Physician: Jennyfer Garber M.D. Date of Service: 06/29/24 Procedure(s): XR cervical spine 2-3V Accession Number(s): [id number] cc: Ester Cain M.D.; PhysicianJennyfer M.D. [place] [address] Patient Name: RAAZ RODRIGUEZ MRN: [id number] date: 1955 Sex: M Assigned Patient Location: [facility] Current Patient Location: [facility] Accession/Order Number: [id number] Exam Date: 06/29/2024 17:59 Report Date: 06/29/2024 18:00 At the request of: NON-STAFF PHYSICIAN JERNIGAN Procedure: XR cervical spine 2-3V CERVICAL SPINE 3 views: CLINICAL HISTORY: S/P cervical spinal fusion, Z98.1 COMPARISON: Cervical spine 01/18/2022 FINDINGS: Posterior hardware fixation C4-C6 without hardware complication. Vertebral body heights appear maintained. Diffuse moderate disc space narrowing. No prevertebral soft tissue swelling. XR/XR cervical spine 2-3V IMPRESSION: NO HARDWARE COMPLICATION. Impression dictated by: Justin Steele Jr.OMauri06/29/2024 6:00 PM Dictation Location: [place] [address] Electronically authenticated by: [id number] Y Date: 06/29/2024 18:00 Dictated By: James Pisano M.D. Signed By: 06/29/241801 DD/ 1800 TD/TT: Access Coordinator:XR ankle LT min 3V Reviewed date:05/03/2024 08:28:40 PM Interpretation: Performing Lab: Notes/Report: Source Facility: [place] [address] XRay Report Signed Patient: RAZA RODRIGUEZ MR#: [id number] : 1955 Acct:[id number] Age/Sex: 69 / M ADM Date: 05/03/24 Loc: RAD Attending Dr: Ester Cain M.D. Ordering Physician: Ester Cain M.D. Date of Service: 05/03/24 Procedure(s): XR ankle LT min 3V Accession Number(s): [id number] cc: Ester Cain M.D. The [place] [address] Patient Name: RAZA RODRIGUEZ MRN: [id number] date: 1955 Sex: M Assigned Patient Location: [facility] Current Patient Location: [facility] Accession/Order Number: [id number] Exam Date: 05/03/2024 16:35 Report Date: 05/03/2024 [...] Charlene Souza M.D.05/03/2024 4:41 PM Dictation Location: [place] [address] Electronically authenticated by: [id number] Y Date: 05/03/2024 16:41 Dictated By: Charlene Souza M.D. Signed By: 05/03/241643 DD/ 40 TD/TT: Access Coordinator:BNP Reviewed date:07/06/2024 12:21:03 PM Interpretation: Performing Lab: Notes/Report: [facility] ,NT Pro B Type Natriuretic Yiem677.0<=900.0 pg/mLPerforming Lab:see noteML - [facility] LBTSH Reviewed date:11/08/2024 02:09:43 PM Interpretation: Performing Lab: Notes/Report: [facility] ,Thyroid Stimulating Hormone0.3780.358-3.740 uIU/mLPerforming Lab:see noteML - [facility] LBT4 Reviewed date:11/08/2024 02:09:43 PM Interpretation: Performing Lab: Notes/Report: [facility] ,T4 Thyroxine4.804.50-12.10 ug/dLPerforming Lab:see noteML - [facility] LBFREE T3 Reviewed date:11/08/2024 02:09:43 PM Interpretation: Performing Lab: Notes/Report: [facility] ,Free T32.512.18-3.98 pg/mLPerforming Lab:see noteML - [facility] LB IRON Reviewed date:09/28/2024 04:08:58 PM Interpretation: Performing Lab: Notes/Report: [facility] ,Vdlk283.065.0-175.0 ug/dLPerforming Lab:see noteML - [facility] LB Reason For Referral Diagnosis 1 Essential (primary) hypertension (I10) Referral Organization [facility] Referring Provider First Name Micheal Referring Provider Last Name Merissa Referring Provider Speciality [facility] [place] Referred Provider Tello Mccullough Referred Provider Specialty Cardiology Referral Priority Routine Reason and balance therapy Diagnosis 1 Radiculopathy, lumba r region (M54.16) Referral Organization [facility] Referring Provider First Name Micheal Referring Provider Last Name Merissa [facility] [place] [facility] Referred Provider [facility] Referred Provider Specialty Physical The rapist Referral Priority Routine Diagnosis 1 Shoulder impingement (M75.40) Referral Organization [facility] Referring Provider First Name Micheal Referring Provider Last Name Merissa Referring Provider Speciality Family [facility] ic[facility] Referred Provider [facility], Physical Therap y Referred Provider Specialty Physical The rapist Referral Priority Routine Medications Medication SIG (Take, Route, Frequency, Duration) Notes Start Date End Date Status Ferrous Sulfate 325 (65 Fe) MG 1 tablet Orally b id; Duration: 30 days 5ActivetiZANidine HCl 4 MGTAKE 2 TABLETS BY MOUTH ONCE DAILY AT BEDTIME; Duration: 90ActiveMagnesium 400 MG1 tablet Orally once dailyActive Triamcinolone Acetonide 0.1 %1 application Externally bid5Active Irbesartan 150 MG1 tablet Orally Once a day; Duration: 30 day(s)12/06/2024tive Cialis 5 MG1 tables Orally daily; Duration: 30 days12/22/2023ctiveoxyCODONE HCl 5 MG1 tablets Orally every 4 hours; Duration: 14 12/31/2024tiveCoreg 12.5 MG1 tablet with food Orally Twice a day; Duration: 30 10/11/2024tive Terbinafine HCl 250 MG1 tablet Orally Once a day; Duration: 30 12/06/2024 ActiveCefdinir 300 MG2 capsule Orally once a day; Duration: 30 11/22/2024 Active Social History Tobacco Use: Social History Observation Description Date Details (start date - stop date) Never Smoker NA - NA Tobacco Use/Smoking Question Answer Notes Patient is a nonsmoker Alcohol Screen (Audit-C) Question Answer Notes Did you have a drink containing alcohol in the p ast year? No Lzibey6WpdxrjtaymvlycSpenmkozJWPGT-O (Standard) Question Answer Notes Did you have a drink containing alcohol in the p ast year? No Muiaus5IgmdqfhackzmetEvtwfxng Problems Problem Type SNOMED Code ICD Code Onset Dates Problem Status W/U Status Risk Notes Problem Essential hypertension (72791734 ) Essential (primary) hypertension (I10) ActiveconfirmedProblemHypoglycemia (139343780)Hypoglycemia, unspecified (E16.2) ActiveconfirmedProblemSupraventricular tachycardia (1838104)Supraventricular tachycardia (I47.1)ActiveconfirmedProblemVentricular premature depolarization (297864183)Ventricular premature depolarization (I49.3)ActiveconfirmedProblem Varicose veins of lower extremity (55293090)Asymptomatic varicose veins of unspecified lower extremity (I83.90)ActiveconfirmedProblemDiverticula of intestine (53786000)Diverticulosis of intestine, part unspecified, without perforation or abscess without bleeding (K57.90)ActiveconfirmedProblemSolitary sacroiliitis (059879360)Sacroiliitis, not elsewhere classified (M46.1)Active confirmedProblemCervical radiculopathy (44373423)Radiculopathy, cervical region (M54.12)ActiveconfirmedProblemLumbar radiculopathy (467379484)Radiculopathy, lumbar region (M54.16)ActiveconfirmedProblemBilateral impingement syndrome of shoulders (58187808317310960)Impingement syndrome of unspecified shoulder (M75.40)ActiveconfirmedProblemCervical radiculopathy (95829165)Cervical radiculopathy (M54.12)ActiveconfirmedProblemEdema (56608230)Edema (R60.9)Active confirmedProblemBenign prostatic hyperplasia (660940720)BPH (benign prostatic hyperplasia) (N40.0)ActiveconfirmedProblemLumbar radiculopathy (202691651)Lumbar radiculopathy (M54.16)ActiveconfirmedProblemAnkle sprain (20384203)Ankle sprain (S93.409A)ActiveconfirmedProblemVaricose veins (979476901)Varicose veins (I86.8)ActiveconfirmedProblemCellulitis (047108097)Cellulitis (L03.90)Active confirmedProblemPure hypercholesterolemia (250246301)Pure hypercholesterolemia, unspecified (E78.00)ActiveconfirmedProblemElevated PSA (834326610)Elevated prostate specific antigen [PSA] (R97.20)ActiveconfirmedProblemAnemia (939989347) Acute anemia (D64.9)ActiveconfirmedProblemCecal polyp (963085617)Cecal polyp (K63.5)Activeconfirmed Vital Signs Blood pressure diastolic 70 mm Hg 12/06/2024 Cspjdu23 in09/29/2025Blood pressure lqdghlda739 mm Hg12/06/20246271Gwnfmf429.6 lbs 12/06/2024BMI28.15 kg/m212/06/2024 Procedures Procedure Date Ordered Date Performed Result Body Sit e CARDIO Echocardiogram 10/07/2024 N/A Encounters Encounter Location Date Provider Diagnosis [address] [address] 08/16/2024 Micheal Hoy Cellulitis L03.[address] [address] 09/13/2024 Micheal Hoy Cellulitis L03.[address] [address] 01/21/2024 Micheal Hoy Radiculopathy, lumba r region M54.[address] [address] 02/11/2024 Micheal Hoy Radiculopathy, lumba r region M54.16 and Radiculopathy, cervical region M54.[address] [address] 2024 Micheal Hoy Radiculopathy, lumba r region M54.16 and Radiculopathy, cervical region M54.[address] [address] 05/03/2024 Micheal Hoy Ankle sprain S93.409 A ; Essential (primary) hypertension I10 ; Hypoglycemia, unspecified E16.2 ; BPH (benign prostatic hyperplasia) N40.0 and Pure hypercholesterolemia, unspecified E78.[address] [address] 05/13/2024 Micheal Hoy Radiculopathy, lumba r region M54.16 and Cervical radiculopathy M54.[address] [address] 07/05/2024 Micheal Hoy Elevated troponin R7 7.8 ; Essential (primary) hypertension I10 ; Hypoglycemia, unspecified E16.2 and Iron deficiency E61.[address] [place] [address] 09/27/2024 Micheal Hoy Hypoglycemia, unspecified E16.2 ; Acute anemia D64.9 and Radiculopathy, lumbar region M54.16 [facility] [address] [place] [address] 10/07/2024 Micheal Hoy Edema R60.9 and Vari cose veins I86.8 [place] [address] [place] [address] 10/11/2024 Micheal Hoy Essential (primary) hypertension I10 and Lumbar radiculopathy M54.16 [place] [address] [place] [address] 11/05/2024 Micheal Hoy Essential (primary) hypertension I10 and Radiculopathy, cervical region M54.12 [place] [address] [place] [address] 11/22/2024 Micheal Hoy Essential (primary) hypertension I10 ; Urinary frequency R35.0 and Radiculopathy, lumbar region M54.16 [place] [address] [place] [address] 12/06/2024 Micheal Hoy Radiculopathy, lumba r region M54.16 ; Essential (primary) hypertension I10 and Shoulder impingement M75.40 [place] [address] [place] [address] 12/15/2024 Micheal Hoy Lumbar radiculopathy M54.16 [place] [address] [place] [address] 03/01/2024 Micheal Hoy Radiculopathy, lumba r region M54.16 ; Pure hypercholesterolemia, unspecified E78.00 ; Essential (primary) hypertension I10 and Radiculopathy, cervical region M54.12 [facility] [address] [place] [facility] [place] [address] 01/15/2024 Micheal Hoy BPH (benign prostati c hyperplasia) N40.0 [facility] [address] [place] [address] 01/23/[address] [facility] [place] [facility] [place] [address] 02/27/2024oug [facility] [place] [facility] [place] [address]/08/2024Doug HoyRadiculopathy, lumbar region M54.16[facility] [place] [place] [address]/ Micheal HoyRadiculopathy, lumbar region M54.16 and BPH (benign prostatic hyperplasia) N40.0[facility] [place] [place] [address]/Doug [facility] [place] [address]/05/2024Doug HoyRadiculopathy, lumbar region M54.16 [facility] [place] [facility] [place] [address] 04/26/2024Doug HoyRadiculopathy, lumbar region M54.16[facility] [place] [place] [address]/Doug [facility] [place] [address]/ Micheal [facility] [place] [address]/05/2024Doug HoyRadiculopathy, lumbar region M54.16[facility] [place] [address]/Doug Hoy Radiculopathy, lumbar region M54.16[facility] [place] [facility] [place] [address]/06/2024Doug HoyRadiculopathy, lumbar region M54.16 [facility] [place] [address] 07/06/2024Doug [facility] [facility] [place] [address]/02/2025Doug HoyElevated troponin R77.8B[facility] [facility] [place] [address]/Doug HoyElevated troponin R77.8[facility] [facility] [place] [address]/11/2024Doug [facility] [facility] [place] [address]/Doug HoyCellulitis L03.90[facility] [facility] [address]/Doug Hoy Radiculopathy, lumbar region M54.16[facility] [facility] [place] [address]/Doug [facility] [address] [facility] [place] [address]/01/2025Doug HoyEssential (primary) hypertension E75LschjexMemorial Hospital North[address] [place] [facility] [place] [address]/Doug HoyEssential (primary) hypertension I10 [facility] [place] [place] [address] 11/03/2024Doug [facility] [place] [place] [address]/03/2024Doug [facility] [facility] [place] [address]/Doug HoyRadiculopathy, lumbar region M54.16 [facility] [place] [place] [address] 12/15/2024Doug [facility] [place] [place] [address]/12/2024Doug HoyRadiculopathy, lumbar region M54.16[facility] [place] [address] Micheal HoyRadiculopathy, lumbar region M54.16 Assessments Encounter Date Diagnosis (ICD Code) Assessment Notes Treatment Notes Treatment Clinical Notes Section Notes 01/21/2024 Radiculopathy, lumbar region (IC D-10 - M54.16) 02/11/2024adiculopathy, lumbar region (ICD-10 - M54.16)4Radiculopathy, cervical region (ICD-10 - M54.12)03/01/2024adiculopathy, lumbar region (ICD-10 - M54.16)03/01/2024ure hypercholesterolemia, unspecified (ICD-10 - E78.00) 12/15/2024Lumbar radiculopathy (ICD-10 - M54.16)01/15/2024PH (benign prostatic hyperplasia) (ICD-10 - N40.0)03/15/2024Radiculopathy, lumbar region (ICD-10 - M54.16)03/29/2024Radiculopathy, lumbar region (ICD-10 - M54.16)2024 Radiculopathy, lumbar region (ICD-10 - M54.16)2024Radiculopathy, cervical region (ICD-10 - M54.12)05/03/2024nkle sprain (ICD-10 - S93.409A)05/03/2024 Essential (primary) hypertension (ICD-10 - I10)05/03/2024Hypoglycemia, unspecified (ICD-10 - E16.2)05/03/2024PH (benign prostatic hyperplasia) (ICD-10 - N40.0)05/03/2024Pure hypercholesterolemia, unspecified (ICD-10 - E78.00) 05/13/2024Radiculopathy, lumbar region (ICD-10 - M54.16) Unalbe to work due to cervical radiculopathy still wtih l;umbar radiculopathy 05/13/2024ervical radiculopathy (ICD-10 - M54.12)07/05/2024Elevated troponin (ICD-10 - R77.8)repeating - trop - he prefers - to repeat labs - sebas do stress cgiomncw46/28/2025Essential (primary) hypertension (ICD-10 - I10)08/16/2024 Cellulitis (ICD-10 - L03.90)10/11/2024Essential (primary) hypertension (ICD-10 - I10)10/11/2024Lumbar radiculopathy (ICD-10 - M54.16) refill pain mes Stil in PT anadha sfoot drop wearing AFO breace due to faicled lumbar disk surgery 09/13/2024ellulitis (ICD-10 - L03.90)09/27/2024Hypoglycemia, unspecified (ICD- 10 - E16.2)09/27/2024ute anemia (ICD-10 - D64.9)10/07/2024Edema (ICD-10 - R60.9)10/07/2024Varicose veins (ICD-10 - I86.8)11/05/2024Essential (primary) hypertension (ICD-10 - I10)04/12/2024Radiculopathy, lumbar region (ICD-10 - M54.16)04/26/2024Radiculopathy, lumbar region (ICD-10 - M54.16)05/10/2024 Radiculopathy, lumbar region (ICD-10 - M54.16)05/24/2024Radiculopathy, lumbar region (ICD-10 - M54.16)06/11/2024Radiculopathy, lumbar region (ICD-10 - M54.16) 07/19/2024Elevated troponin (ICD-10 - R77.8)08/03/2024Elevated troponin (ICD-10 - R77.8)08/30/2024ellulitis (ICD-10 - L03.90)09/27/2024Radiculopathy, lumbar region (ICD-10 - M54.16)10/18/2024Essential (primary) hypertension (ICD-10 - I10)10/25/2024Essential (primary) hypertension (ICD-10 - I10)12/03/2024 Radiculopathy, lumbar region (ICD-10 - M54.16)12/17/2024Radiculopathy, lumbar region (ICD-10 - M54.16)12/31/2024Radiculopathy, lumbar region (ICD-10 - M54.16) 11/22/2024Essential (primary) hypertension (ICD-10 - I10)11/22/2024Urinary frequency (ICD-10 - R35.0)12/06/2024Radiculopathy, lumbar region (ICD-10 - M54.16)12/06/2024Essential (primary) hypertension (ICD-10 - I10)12/06/2024 Shoulder impingement (ICD-10 - M75.40)11/22/2024Radiculopathy, lumbar region (ICD-10 - M54.16)09/27/2024Radiculopathy, lumbar region (ICD-10 - M54.16) 07/05/2024Hypoglycemia, unspecified (ICD-10 - E16.2)03/29/2024PH (benign prostatic hyperplasia) (ICD-10 - N40.0)03/01/2024Essential (primary) hypertension (ICD-10 - I10)03/01/2024adiculopathy, cervical region (ICD-10 - M54.12)cervical mri iwht severe senosis but pt doesnt want mdzhcup0607/05/2024Iron deficiency (ICD-10 - E61.1)11/05/2024Radiculopathy, cervical region (ICD-10 - M54.12)02/11/2024OtherRecommended to rest and use a heating pad on the area. Take NSAIDs for pain as wnrejl0603/12/2024OtherRecommended to rest and use a heating pad [...] CBC WITH DIFF 10/15/2023 CARDIO Echocardiogram 10/07/2024 UA DIP NONAUTO WO MICRO (37276) - IN OFF ICE 11/22/2024 Insulin Level 10/15/2023 CBC W/AUTO DIFF 08/28/2023 PSA, TOTAL 08/19/2022 High Sensitivity Troponin 07/05/2024 PROF 14(COMP METB) 08/19/2022 MRI LSPINE WO CON 02/19/2023 US TANMAY DOP LEG LT 08/27/2023 US TANMAY DOP LEG RT 08/27/2023 VC VENOUS REFLUX JAYDON LMT 10/07/2024 XR ANKLE LT MIN 3 V 05/03/2024 THYROID PANEL (T4/TSH/FREE T3) 5 THYROID PANEL (T4/TSH/FREE T3) 4 THYROID PANEL (T4/TSH/FREE T3) 5 THYROID PANEL (T4/TSH/FREE T3) 5 Free PSA [...] Date Coverage End Date R [address] [address] [place] [address] [id number] Raza Rodriguez Self - patient is the insured 6 Medications Administered Medication Instructions Date of Administration Dosage Notes DEPO-Medrol rg68Dsbhjmpfzcmse, 4mg/mL dc35Fymxjzp-1845/20 mg120 mgKenalog-4006/ jc101Mrwuekj-6911 ps747Sxonvrl-57 mgKenalog-401 xc449Xvqzerh-3534/14/2023120 mgKenalog-40 fr270Jjcnfno-4879/09/2024120 mgKetorolac Cxtsssijfdgx24/24/202360 rv95Xtwgrlcsl Etimzrozcehs19/01/46369078Abrznxwdx Qjqkxekqjmnu53/12/202360 mg60 Ketorolac Zvpwonplmywb38/24/202360 ak60Kmirwmbpy Hhsrtihemvdt92/23/202360 mg60 Ketorolac Oxehpjbkhlor85/25/202360 vy55Gqtenhemp Tqvfmxlfgdkv20/22/202360 mg Ketorolac Aeoiqflpmxcj17/13/202360 yt61Lenyvphzs Qdqyiaijhprj81/14/202360 mg Ketorolac Hfhwbwazcfhg83/29/644302 gi72Rgkkmwkxj Zgihpofblivn47/15/611777 mg Ketorolac Lebsfvjzylpf78/07/063776 mgKetorolac Hxayyjnjohef84/09/026154 mg Ketorolac Cqczumhyjjab65/09/552188 mgKetorolac Dgrnxfewbvdz63/07/158939 mg Ketorolac Pwckjtguetvb83/21/011010 mgKetorolac Fktzghpaohry51/31/606655 mg Ketorolac Xsytboocknms87/29/519173 mgKetorolac Cavpvdvllryk43/08/528032 mg Orphenadrine Dbhaybi87 th67Hluretodieer Sjbensv61 mg60 Orphenadrine Tdhfriy28 gz86Mbhbfvvfdnxh Eduhozc46 mg60 Orphenadrine Axgsndf98 dj75Uuljneoxmlwz Hohvagh67 mg60 Orphenadrine Zhtxkmi30 mgOrphenadrine Tftxnku67 mg60 Orphenadrine Hzjcjvb04 mgOrphenadrine Bpcsmiu88/29/933269 mg60 Orphenadrine Lckahea14/15/652595 mgOrphenadrine Gbnalic40/07/451427 mg Orphenadrine Czqzywj51 mgOrphenadrine Qzkjvgd24 mg Orphenadrine Zowmsld27 mgOrphenadrine Ctivhyr84 mg Orphenadrine Alvmoly91 mgOrphenadrine Upzrgik56/08/939224 mg Medical (General) History Medical History History ICD Code Back pain M54.9 Cervical radiculopathy M54.12 COVID-19 U07.1 Diverticulosis K57.90 Hypertension I10 Hypoglycemia E16.2 Lumbar disc disease M51.9 Lumbar radiculopathy M54.16 Pure hypercholesterolemia E78.00 Shoulder impingement syndrome M75.40 Other specified cardiac arrhythmias I49. 8 Ventricular tachycardia I47.20 PVC (premature ventricular contraction) I49.3 Varicose veins I86.8 LVH and atrial enlargement Surgical History Surgery Date(Month/Year) Lumbar Fusion L2-L5 08/19/2023 hernia repair 05/02 Colonoscopy- Dr. Snell 11/26/2023 Laminoplasty Cervical Spine 06/01 laminectomy, lumbar exc Bx lesion nasal bridge11/2016Hospitalization History Reason Date(Month/Year) see above
--- OUTSIDE RECORDS SUMMARY | 2025-01-05 07:23 | XMS_ITS | Clinical Summary ---
Author Organization [facility] Address [address] [place] [address] Care Team Providers Care Presser Machine Name Role Phone Devon Craven MD Primary Care Provider [phone] Allergies Active AllergyReactionsCriticalityNoted DateCommentsAmlodipineNausea Only 12/24/2024MethocarbamolGI vxbubkaeota66/04/2024enicillinsHives,RashLow 07/04/2006 Medications MedicationSigDispense QuantityRefillsLast FilledStart DateEnd DateStatus carvedilol (Coreg) 25 mg tablet Take 25 mg by mouth with breakfast and with evening meal.Active oxyCODONE (Roxicodone) 5 mg immediate release tablet Take 5 mg by mouth if needed each day.Active ferrous sulfate 325 (65 Fe) MG tablet Take 325 mg by mouth if needed.5Active furosemide (Lasix) 20 mg tablet Take 20 mg by mouth if needed.Active irbesartan (Avapro) 150 mg tablet Take 150 mg by mouth in the morning.5Active magnesium aspart,citrate,oxide (Triple Magnesium Complex) 400 mg magnesium capsule Take 1 tablet by mouth in the morning.Active tadalafil (Cialis) 5 mg tablet Take 5 mg by mouth in the morning.Active hydroCHLOROthiazide (HYDRODiuril) 25 mg tablet Indications:Primary hypertensionTake 0.5 tablet once daily. 45 tablet 5Active Active Problems ProblemNoted DateDiagnosed DateAdenomatous polyp of colon12/24/2024nemia 12/24/2024nkle htnbat8712/24/2024enign prostatic rfksqjkfhpu67/17/2025PH with obstruction/lower urinary tract bqgsiarc15/17/2025MI 28.0-28.9,adult12/24/2024 Cecal polyp12/24/20247793Vfusoiwiji08/17/2025Diverticulosis of intestine, part unspecified, without perforation or abscess without pbmnutyi10/17/2025Edema 12/24/2024Gross /17/7897Ofrytkdvwren37/17/2025Impingement syndrome of both jcrovwkfw54/17/2025Incarcerated epigastric qoayod0312/24/2024Internal gxkakjunra79/17/2025Intradermal nevus12/24/20244881Cfibkgrqiv07/17/2025Personal history of adenomatous and serrated colon yoscby2512/24/2024Pure uidnkoidevtzaqfrdcsf02/17/2025Previous back jnjaphj1812/24/2024Sacroiliitis, not elsewhere ghbnfalgip96/17/2025Screening for malignant neoplasm of colon 12/24/2024Sigmoid mjnxfeithajtog86/17/2025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12/24/2024Varicose veins of lower gajzpsian90/17/2025Varicose veins of other specified sites12/24/2024Ventricular premature kyjtrixfxsuwxd27/17/2025ute postoperative pain06/08/2024Elevated dgyadibx05/01/2025S/P cervical spinal gqodce0206/08/2024ervical spondylosis with tagmzzlwft11/27/2025Low back pain 10/02/2023Edema of both lower nhshtjeilcg25/01/2024Intractable pain09/08/2023 Localized swelling of lower taqjrczhw67/01/2024ain and swelling of lower /01/2024Foot drop, right foot08/20/2023Scoliosis of lumbar region due to degenerative disease of spine in adult08/20/2023History of penicillin allergy 4Primary lzkarwtuvzro67/29/4174Blahakmzmzni42/06/2020SVT (supraventricular tachycardia)07/14/2019Other seborrheic /02/2009 Benign neoplasm of skin08/05/2008 Encounters DateTypeDepartmentCare JrrwXuzmqiblgmr41/17/2025 3:30 PM EDTOffice Visit [place] [address] [place] [address] Tobi Mccullough MD Primary hypertension (Primary Dx); LVH (left ventricular hypertrophy)12/22/2024Orders Only [facility] [place] [address] [place] [address] Provider, MD Sandie from Last 3 Months Family History Medical HistoryRelationNameCommentsMelanomaBrotherCoronary artery diseaseFather MelanomaFatherStrokeMotherRelationNameStatusCommentsBrotherDeceasedFather DeceasedMotherDeceased Social History Tobacco UseTypesPacks/DayYears UsedDateSmoking Tobacco: NeverSmokeless Tobacco: Never Tobacco Cessation:Counseling Given: Not Answered Alcohol UseStandard Drinks/WeekCommentsNot Currently0 (1 standard drink = 0.6 oz pure alcohol)Sex and Gender InformationValueDate RecordedSex Assigned at Male12/20/2024 2:00 PM EDTLegal AqfBnhz9709/05/2021 11:07 PM EDTGender Identity Male12/20/2024 2:00 PM EDTSexual OrientationHeterosexual or Pfhqnlls87/13/2025 2:00 PM EDT Last Filed Vital Signs Vital SignReadingTime TakenCommentsBlood Yawopzxv302/7112/24/2024 3:36 PM EDT Vzllp250112/24/2024 3:36 PM EDTTemperature--Respiratory Rate--Oxygen Zqatzawmef60% 12/24/2024 3:36 PM EDTInhaled Oxygen Concentration--Rpklpv97.4 kg (206 lb) 12/24/2024 3:36 PM QYDZbvcsf400.9 cm (6')06/27/2020 10:21 AM EDTBody Mass Index 27.9406/27/2020 10:21 AM EDT Plan of Treatment Health MaintenanceDue DateLast DoneCommentsCT Foatoznqajke70/03/1958FIT-DNA 1957FIT1957FOBT1955 8030Ysdqspfvmhwcn28/03/1958Depression Screening 1969Adult Cixqnee0503/12/1979Pneumococcal Vaccine: 50+ Years (1 of 1 - PCV) 2007Zoster Vaccines (1 of 2)01/03/2008Fall Risk Wzfwvrwed29/03/2023COVID- 19 Vaccine ( season)/, 06/09/2020, 05/19/2020 Influenza Vaccine (#1)/8538Lqrehyvxexi52 Colorectal Cancer Wrlivawvz42/18/2034HIB VaccinesAged OutNo longer eligible based on patient's age to complete this topicHPV VaccinesAged OutNo longer eligible based on patient's age to complete this topicIPV VaccinesAged OutNo longer eligible based on patient's age to complete this topicMeningococcal B VaccineAged OutNo longer eligible based on patient's age to complete this topic Meningococcal VaccineAged OutNo longer eligible based on patient's age to complete this topicRotavirus VaccinesAged OutNo longer eligible based on patient's age to complete this topic Insurance Care Teams Team MemberRelationshipSpecialtyStart DateEnd Date Devon Craven MD [address] [place] [address] PCP - Ljzgenl19/12/25
--- OUTSIDE RECORDS SUMMARY | 2025-01-05 07:25 | XMS_ITS | Encounter Summary ---
Author Organization [facility] Address [address] [place] [address] Care Team Providers Care Director Of Donor Relations Name Role Phone Devon Craven MD Primary Care Provider [phone] Encounter Details DateTypeDepartmentCare Team (Latest Contact Info)Lxlyszxysas91/15/2025Orders Only [facility] at [facility] [address] [place] [address] Provider, MD Sandie [address] [place], [place] [id number] Social History Tobacco UseTypesPacks/DayYears UsedDateSmoking Tobacco: Never AssessedSex and Gender InformationValueDate RecordedSex Assigned at NgtrzEqfa57/13/2025 2:00 PM EDTLegal LvuOepd1009/05/2021 11:07 PM EDTGender FiivhzokFlsv26/13/2025 2:00 PM EDT Sexual OrientationHeterosexual or Bfdqjyzs84/13/2025 2:00 PM EDTdocumented as of this encounter Functional Status * BPAnswerDate of GiqjyfpfsjJvsawv768 3:36 PM EDNatacha Corona MA * PulseAnswerDate of HyxhyqnpweGwyvmt8708/17/2025 3:36 PM Natacha Villa MA * Patient PositionAnswerDate of XwnymjbqfpJkhfhlIssbpxa95/17/2025 3:36 PM EDT Natacha Fraire MA * BPAnswerDate of GlzhixaonbCfpdgb746 3:36 PM Natacha Villa MA * PulseAnswerDate of MlynwfxpstQehxtt7721/17/2025 3:36 PM EDTCNatacha easley MA * DjZ7AbtijwRbjw of UiebfrysawFxtgcv8422/17/2025 3:36 PM EDNatacha Corona MA * BP LocationAnswerDate of AssessmentAuthorLeft arm12/24/2024 3:36 PM EDT Natacha Fraire MA * Patient PositionAnswerDate of FgsyevvvxyNrmgnpYeavguf03/17/2025 3:36 PM EDT Natacha Fraire MA documented as of this encounter Plan of Treatment Not on file documented as of this encounter Procedures Procedure NamePriorityDate/TimeAssociated DiagnosisCommentsROUTINE STRESS (TREADMILL ONLY)Nxgsvwv3107/21/2020 12:09 PM EDTdocumented in this encounter Results * Routine Stress (Treadmill Only) (07/21/2020 12:09 PM EDT)Anatomical Region LateralityModalityOther Narrative Authorizing ProviderResult TypeResult StatusHistorical Provider MDCV STRESS PROCEDURESFinal Result documented in this encounter Visit Diagnoses Not on filedocumented in this encounter Care Teams Team MemberRelationshipSpecialtyStart DateEnd Date Devon Craven MD [address] [facility] [place] [id number] PCP - Xjdmpqg59/12/25documented as of this encounter
[2025-01-05 09:05] VITALS: BP 120/52; PULSE 55; TEMP 36.4; O2SAT 99
[2025-01-05 09:20] VITALS: BP 113/69; PULSE 54; O2SAT 99
[2025-01-05 09:35] VITALS: BP 125/68; PULSE 56; O2SAT 99
== END 2025-01-05 09:45 | disposition home or self-care (01) ==
LOC: SURGOUT 07:19
PROVIDERS: PCP Family Medicine; Visit Provider Surgery
PROC: (CPT 812; principal; 2025-01-05 08:25)
DX: Z12.11 Encounter for screening for malignant neoplasm of colon (principal); Z86.0101 Personal history of adenomatous and serrated colon polyps; K57.30 Diverticulosis of large intestine without perforation or abscess without bleeding; I10 Essential (primary) hypertension; Z90.49 Acquired absence of other specified parts of digestive tract; E78.00 Pure hypercholesterolemia, unspecified; I47.10 Supraventricular tachycardia, unspecified; M47.26 Other spondylosis with radiculopathy, lumbar region; N40.0 Benign prostatic hyperplasia without lower urinary tract symptoms; Z85.828 Personal history of other malignant neoplasm of skin
CPT/HCPCS: 45378; J2704

== ENCOUNTER 2025-02-09 13:18 | Outpatient (OUT) | payer OTHER, SELFPAY ==
--- OUTSIDE RECORDS SUMMARY | 2025-01-27 06:00 | XMS_ITS ---
Author Organization [facility] [place] Address [address] [place] [address] Care Team Providers Care Paradichlorobenzene Machine Operator Name Role Phone Micheal Craven Primary Care Provider [phone] Allergies Allergen (clinical drug ingredient) Drug/Non Drug Allergy documented on EMR Reaction Allergy Type Onset Date Status methocarbamol Robaxin Unknown Drug Allergy ActivePenicillinhivesDrug AllergyActive REASON FOR VISIT Wants referral to Neurology? Neurosurgery? for 2nd opinion on Neuropathy, back and neck Medications Medication SIG (Take, Route, Frequency, Duration) Notes Start Date End Date Status Magnesium 400 MG 1 tablet Orally once daily ActivepredniSONE 10 MG5 tabs per day for 3 days, 4 tabs per day for 3 ays, 3 tabs perday for 3 days, 2 tabs per day for 3days, 1 tab a day for 3 days, 1/2 tab a day for 4 days Orally Once a day; Duration: 19 days5Active Terbinafine HCl 250 MG1 tablet Orally Once a day; Duration: 30 days12/06/2024 ActivetiZANidine HCl 4 MGTAKE 2 TABLETS BY MOUTH ONCE DAILY AT BEDTIME; Duration: 90ActiveTriamcinolone Acetonide 0.1 %1 application Externally bid 5ActiveFerrous Sulfate 325 (65 Fe) MG1 tablet Orally bid; Duration: 30 days5ActiveIrbesartan 150 MG1 tablet Orally Once a day; Duration: 30 day(s)5ActiveCialis 5 MG1 tables Orally daily; Duration: 30 days 4ActiveCoreg 12.5 MG1 tablet with food Orally Twice a day; Duration: 30 days5ActiveoxyCODONE HCl 5 MG1 tablets Orally every 4 hours; Duration: 14 days01/27/2025tive Social History Tobacco Use: Social History Observation Description Date Details (start date - stop date) Never Smoker NA - NA Tobacco Use/Smoking Question Answer Notes Patient is a nonsmoker Vital Signs Weight 206.8 lbs 01/27/2025 Height 72 in 01/27/2025 Blood pressure systolic 140 mm Hg 01/28/20 25 Blood pressure diastolic 78 mm Hg 025 BMI 28.04 kg/m2 01/27/2025 Encounters Encounter Location Date Provider Diagnosis [facility] [address] [place] [address] 01/27/2025 Micheal Craven Lumbar radiculopathy M54.16 Assessments Encounter Date Diagnosis (ICD Code) Assessment Notes Treatment Notes Treatment Clinical Notes Section Notes 01/27/2025 Lumbar radiculopathy (ICD-10 - M 54.16) 01/27/2025OtherRecommended to rest and use a heating pad on the area. Take NSAIDs for pain as needed Plan Of Treatment Medication Medication Name Sig Start Date Stop Date Notes predniSONE 10 MG 5 tabs per day for 3 days, 4 tabs per day for 3 ays, 3 tabs perday for 3 days, 2 tabs per day for 3 days, 1 tab a day for 3 days, 1/2 tab a day for 4 days Orally Once a day; Duration: 19 days 01/27/2025 oxyCODONE HCl 5 MG1 tablets Orally every 4 hours; Duration: 14 days01/27/2025 Treatment Notes Assessment Notes Other Recommended to rest and use a heating pad on the area. Take NSAIDs for pain as needed Pending Test Test Name Order Date MRI LSPINE WO CON 01/27/2025 Progress Notes * Raza RODRIGUEZ LDOB: [birth year] (69 yo M)Acc No.[id number]:01/27/2025 Progress Note Patient: Raza HUITRON :?Devon Craven ([facility]), MDDOB:1955???Age: 69 Y???Sex:MaleDate:01/27/2025Phone:[phone]:[address] [facility], [id number] In:10:58 AM [place] Out:11:45 AM EST Subjective: * Chief Complaints: * W ants referral to Neurology? Neurosurgery? for 2nd opinion on Neuropathy, back and neck * HPI: ???General:? Necka narem PT - last session was earlier tehis week -? stil with some symptoms into legs -= that didnt help R leg was good leg - Left leg drop foot - and now r leg progressed to foot drop. ???Back Pain:? The patient complains of -. The symptoms have been present for1-2 days. The patient believes symptoms are injury related No. The symptoms are mild. Symptomatic treatment has included heating pad, stretching. Associated symptoms include None. * ROS: ???General/Constitutional:?Lightheadedness?denies.?Change in appetite?denies.?Weight Change?denies.?Cardiovascular:?Irregular heartbeat?denies.?Swelling in hands/feet denies.?Respiratory:?Shortness of breath?denies.?Shortness of breath with e xertion?denies.?Wheezing?denies.?Musculoskeletal:?Comments?See HPI for details.?Neurologic:?Dizziness?denies.?Fainting?denies.?Headache denies.? * Active Problem List M54.16 Radiculopathy, lumba r region Modified On:06/06/2023W/U Status:zmdhbgrudM24.00Pure hypercholesterolemia, unspecified Modified On:07/01/2022/U Status:xrhwjyqomY14.12Radiculopathy, cervical region Modified On:07/01/2022/U Status:twqsllcgbG46.40Impingement syndrome of unspecified shoulder Modified On:07/01/2022/U Status:fmdlkkbpaT77.2Hypoglycemia, unspecified Modified On:07/01/2022 Status:cmpipgiteK39.90Asymptomatic varicose veins of unspecified lower extremity Modified On:07/01/2022 Status:evgrvilwkC97.1Supraventricular tachycardia Modified On:07/01/2022 Status:xyvhquvpiP09.3Ventricular premature depolarization Modified On:07/01/2022 Status:wgtbqfketQ35.1Sacroiliitis, not elsewhere classified Modified On:07/01/2022 Status:rsfwcanjnV23Bjpxkgkui (primary) hypertension Modified On:01/01/2023 Status:tgrozomzgW61.90Diverticulosis of intestine, part unspecified, without perforation or abscess without bleeding Modified On:07/01/2022 Status:svahsdovrC79.20Elevated prostate specific antigen [PSA] Modified On:08/21/2022 Status:bkkzjsrisL20.5Cecal polyp Modified On:11/28/2023 Status:jcikllpvbY95.0BPH (benign prostatic hyperplasia) Modified On:12/22/2023 Status:rebiridlrH71.409AAnkle sprain Modified On:05/03/2024 Status:pnpdnpqtnJ63.12Cervical radiculopathy Modified On:05/13/2024 Status:blzaratwaJ48.90Cellulitis Modified On:08/16/2024 Status:tsvqoqjnpR50.9Acute anemia Modified On:09/27/2024 Status:wcibvnfflA07.9Edema Modified On:10/07/2024 Status:dbxyaemqyU71.8Varicose veins Modified On:10/07/2024 Status:jjgrnjsdlN50.16Lumbar radiculopathy Modified On:10/11/2024 Status:oqebvxntfM75.30Sigmoid diverticulosis Modified On:01/10/2025 Status:confirmed * Medical History: * Surgical History: h ernia repair 05/02laminectomy, lumbar exc Bx lesion nasal bridge 11/2016Lumbar Fusion L2-L5 08/19/2023olonoscopy- Dr. Snell 11/26/2023Laminoplasty Cervical Spine 06/01Colonoscopy Dr Snell 01/05/2025 * Hospitalization/Major Diagno stic Procedure: s ee above * Family History: F ather: , Melanoma, diagnosed with Heart Disease. M other: , CVA. B rother(s): alive, one from Melanoma. 3 brother(s) . . * Social History: ???Tobacco Use:?Tobacco Use/Smoking?Patient is a?nonsmoker * Medications: T akingCialis(Tadalafil) 5 MG Tablet 1 tables Orally daily Coreg(Carvedilol) 12.5 MG Tablet 1 tablet with food Orally Twice a day Ferrous Sulfate 325 (65 Fe) MG Tablet 1 tablet Orally bid Irbesartan 150 MG Tablet 1 tablet Orally Once a day Magnesium 400 MG Tablet 1 tablet Orally once daily oxyCODONE HCl 5 MG Tablet 1 tablets Orally every 4 hours Terbinafine HCl 250 MG Tablet 1 tablet Orally Once a day tiZANidine HCl 4 MG Tablet TAKE 2 TABLETS BY MOUTH ONCE DAILY AT BEDTIME Triamcinolone Acetonide 0.1 % Cream 1 application Externally bid Taking Cialis(Tadalafil) 5 MG Tablet 1 tables Orally daily Taking Coreg(Carvedilol) 12.5 MG Tablet 1 tablet with food Orally Twice a day Taking Ferrous Sulfate 325 (65 Fe) MG Tablet 1 tablet Orally bid Taking Irbesartan 150 MG Tablet 1 tablet Orally Once a day Taking Magnesium 400 MG Tablet 1 tablet Orally once daily Taking oxyCODONE HCl 5 MG Tablet 1 tablets Orally every 4 hours Taking Terbinafine HCl 250 MG Tablet 1 tablet Orally Once a day Taking tiZANidine HCl 4 MG Tablet TAKE 2 TABLETS BY MOUTH ONCE DAILY AT BEDTIME Taking Triamcinolone Acetonide 0.1 % Cream 1 application Externally bid DiscontinuedCefdinir 300 MG Capsule 2 capsule Orally once a day Medication List reviewed and reconciled with the patientDiscontinued Cefdinir 300 MG Capsule 2 capsule Orally once a day Medication List reviewed and reconciled with the patient * Allergies: P enicillin: hives - AllergyRobaxin: Side Effectsno[Allergies Verified] Objective: * Vitals: W t:206.8lbs, Ht: 72 in, BP:140/78mm Hg, BMI:28.04Index, Ht-cm: 182.88 cm, Wt-k.8 kg. * Examination: ???General Examination: ?GENERAL APPEARANCE:?in no acute distress, well developed, well nourished.?LUNGS:? clear to auscultation bilaterally.?CARDIO:? S1, S2 normal, no murmurs, rubs, gallops.?MUSCULOSKELETAL:?poor rom in back de to painand + POP bilatearl and midle spine an + SLR with diminshe patellar reflexwe 2-3/5 bilatearl.?EXTREMITIES:? no clubbing, cyanosis, or edema.?NEUROLOGIC:? alert, oriented to time, place, & person. ??? Assessment: * Assessment: 1.?Lumbar radiculopathy - M54.16 (Primary)??? Plan: * Treatment: Refill oxyCODONE HCl Tablet, 5 MG, 1 tablets, Orally, every 4 hours, 14 days, 84 Tablet, Refills 0; Start predniSONE Tablet, 10 MG, 5 tabs per day for 3 days, 4 tabs per day for 3 ays, 3 tabs perday for 3 days, 2 tabs per day for 3 days, 1 tab a day for 3 days, 1/2 tab a day for 4 days, Orally, Once a day, 19 days, 47, Refills 0.?Imaging: MRI LSPINE WO CON2.?Others? Notes: Recommended to rest and use a heating pad on the area. Take NSAIDs for pain as needed? * Procedure Codes: * Preventive Medicine: ??Screenings/Counseling:?BMI ACTION PLAN?Above Normal BMI Follow-up?Dietary management education, guidance, and counseling * * Sign off status: CompletedVisit Status:?CHK (Check Out) true * Provider: Mary Craven ([facility])MD Date: 03/29/2024 Generated for Printing/Faxing/eTransmitting on:?02/09/2025 01:23 PM EST History and Physical Notes * HPI (History of Present Illness) CategorySub-CategoryDetailNotesCategory NotesGeneral Necka narem PT - last session was earlier tehis week - stil with some symptoms into legs -= that didnt help R leg was good leg - Left leg drop foot - and now r leg progressed to foot drop Examination CategorySub-CategoryDetailNotesCategory NotesGeneral ExaminationGENERAL APPEARANCE:in no acute distress, well developed, well nourishedCARDIO:S1, S2 normal, no murmurs, rubs, gallopsLUNGS:clear to auscultation bilaterally NEUROLOGIC:alert, oriented to time, place, & personEXTREMITIES:no clubbing, cyanosis, or edemaMUSCULOSKELETAL:poor rom in back de to painand + POP bilatearl and midle spine an + SLR with diminshe patellar reflexwe 2-3/5 bilatearl
--- OUTSIDE RECORDS SUMMARY | 2025-02-09 13:23 | XMS_ITS | Clinical Summary ---
Author Organization [facility] Address [address] [place] [address] Phone Care Team Providers Care Creel Cleaner Name Role Phone Devon Craven MD Primary Care Provider [phone] Social History Tobacco UseTypesPacks/DayYears UsedDateSmoking Tobacco: Never AssessedSex and Gender InformationValueDate RecordedSex Assigned at BirthNot on fileLegal Sex Male02/01/2022 11:16 PM ESTGender IdentityNot on fileSexual OrientationNot on file Plan of Treatment Health MaintenanceDue DateLast DoneCommentsCT Alensuztnknu98/03/1958Colonoscopy 1957Colorectal Cancer Wimiwwill87/03/1958FIT-DNA (Cologuard)1957FIT 1955Lipid Panel1955 5529Kyxiosbemzhya05/03/1958Yearly Adult Physical 1957MMR Vaccines (1 of 1 - Standard series)1958Hepatitis C Screening 1975DTaP/Tdap/Td Vaccines (1 - Tdap)1979PSA Prostate Cancer Qdmapvdxj83/03/2008Pneumococcal Vaccine (1 of 1 - PCV)2007Zoster Vaccines [...] MemberRelationshipSpecialtyStart DateEnd Devon Craven MD [address] [place] [address] [facility]05/03/11
--- OUTSIDE RECORDS SUMMARY | 2025-02-09 13:24 | XMS_ITS | Encounter Summary ---
Author Organization [facility] Address [address] [place] [address] Care Team Providers Care Head Usher Name Role Phone Devon Craven MD Primary Care Provider [phone] Encounter Details DateTypeDepartmentCare Team (Latest Contact Info)Lztdqltuzci80/01/2025Telephone [facility] [address] [place] [address] Tania Colon MA Social History Tobacco UseTypesPacks/DayYears UsedDateSmoking Tobacco: NeverSmokeless Tobacco: NeverAlcohol UseStandard Drinks/WeekCommentsNot Currently0 (1 standard drink = 0.6 oz pure alcohol)Sex and Gender InformationValueDate RecordedSex Assigned at TymeqXehc89/13/2025 2:00 PM EDTLegal PjfFvag0209/05/2021 11:07 PM EDTGender YudtngmcAxti43/13/2025 2:00 PM EDTSexual OrientationHeterosexual or Straight 12/20/2024 2:00 PM EDTdocumented as of this encounter Plan of Treatment Not on file documented as of this encounter Visit Diagnoses Not on filedocumented in this encounter Care Teams Team MemberRelationshipSpecialtyStart DateEnd Date Devon Craven MD [address] [facility] [address] PCP - Erixczj01/12/25documented as of this encounter
--- OUTSIDE RECORDS SUMMARY | 2025-02-09 13:24 | XMS_ITS | Clinical Summary ---
Author Organization [facility] Address [address] [place] [address] Care Team Providers Care Food And Beverage Associate Name Role Phone Devon Craven MD Primary Care Provider [phone] Allergies Active AllergyReactionsCriticalityNoted DateCommentsAmlodipineNausea Only 12/24/2024MethocarbamolGI qznyitqkgos37/04/2024enicillinsHives,RashLow 07/04/2006 Medications MedicationSigDispense QuantityRefillsLast FilledStart DateEnd DateStatus [...] hydroCHLOROthiazide (HYDRODiuril) 25 mg tablet Indications:Primary hypertensionTake 1 tablet (25 mg) by mouth in the morning. 90 tablet ctive hydroCHLOROthiazide (HYDRODiuril) 25 mg tablet Indications:Primary hypertensionTake 0.5 tablet once daily. 45 tablet Discontinued(Reorder) Active Problems ProblemNoted DateDiagnosed DateAdenomatous polyp of colon12/24/2024nemia 12/24/2024nkle rtgapb0512/24/2024enign prostatic ewqnpvxbpsm61/17/2025PH with obstruction/lower urinary tract bqbyvcne82/17/2025MI 28.0-28.9,adult12/24/2024 Cecal polyp12/24/20246406Pzkanvswqb35/17/2025Diverticulosis of intestine, part unspecified, without perforation or abscess without aazearov02/17/2025Edema 12/24/2024Gross djlxyakjt47/17/5459Fxdnmqwvlgjf56/17/2025Impingement syndrome of both httlfklib51/17/2025Incarcerated epigastric rqyfed7512/24/2024Internal qfyyswralq98/17/2025Intradermal nevus12/24/20241022Pnowtaipyz91/17/2025Personal history of adenomatous and serrated colon wyayth6712/24/2024Pure rvqvtydvutlecxrnkgih62/17/2025Previous back zbtxhag0912/24/2024Sacroiliitis, not elsewhere idigzgqvpy97/17/2025Screening for malignant neoplasm of colon 12/24/2024Sigmoid ehbanahcxjhrjw19/17/2025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12/24/2024Varicose veins of lower egwflvefd97/17/2025Varicose veins of other specified sites12/24/2024Ventricular premature awjltmejiyrxcc18/17/2025ute postoperative pain06/08/2024Elevated zbjbtotc11/01/2025S/P cervical spinal igcyir1006/08/2024ervical spondylosis with ilctwyypri71/27/2025Low back pain 10/02/2023Edema of both lower cfzgatyqjck52/01/2024Intractable pain09/08/2023 Localized swelling of lower kosasalda71/01/2024ain and swelling of lower akzbbnssb83/01/2024Foot drop, right foot08/20/2023Scoliosis of lumbar region due to degenerative disease of spine in adult08/20/2023History of penicillin allergy 4Primary ocmbljkhhfao10/29/8696Nibgmflfdqjt42/06/2020SVT (supraventricular tachycardia)07/14/2019Other seborrheic uhidfujhx44/02/2009 Benign neoplasm of skin08/05/2008 Encounters DateTypeDepartmentCare TummHrvrwxhsrhf42/01/2025Telephone [facility] [address] [place] [facility] [address] Tania Colon MA 02/07/2025Telephone [facility] [address] [place] [facility] [address] Tania Colon MA 12/24/2024 3:30 PM EDTOffice Visit [facility] [address] [place] [facility] [address] Tobi Mccullough MD Primary hypertension (Primary Dx); LVH (left ventricular hypertrophy)12/22/2024Orders Only [facility] [address] [facility] [address] Provider, MD Sandie from Last 3 Months Family History Medical HistoryRelationNameCommentsMelanomaBrotherCoronary artery diseaseFather MelanomaFatherStrokeMotherRelationNameStatusCommentsBrotherDeceasedFather DeceasedMotherDeceased Social History Tobacco UseTypesPacks/DayYears UsedDateSmoking Tobacco: NeverSmokeless Tobacco: Never Tobacco Cessation:Counseling Given: Not Answered Alcohol UseStandard Drinks/WeekCommentsNot Currently0 (1 standard drink = 0.6 oz pure alcohol)Sex and Gender InformationValueDate RecordedSex Assigned at Male12/20/2024 2:00 PM EDTLegal QwfMycn9909/05/2021 11:07 PM EDTGender Identity Male12/20/2024 2:00 PM EDTSexual OrientationHeterosexual or Pahlrdom78/13/2025 2:00 PM EDT Last Filed Vital Signs Vital SignReadingTime TakenCommentsBlood Wwjpqpck844/7112/24/2024 3:36 PM EDT Fvzvg836812/24/2024 3:36 PM EDTTemperature--Respiratory Rate--Oxygen Qnsfiqvpdw44% 12/24/2024 3:36 PM EDTInhaled Oxygen Concentration--Agwczu31.4 kg (206 lb) 12/24/2024 3:36 PM IZZWztvro474.9 cm (6')06/27/2020 10:21 AM EDTBody Mass Index 27.9406/27/2020 10:21 AM EDT Plan of Treatment Health MaintenanceDue DateLast DoneCommentsCT Lahsjlpkihyn38/03/1958FIT-DNA 1957FIT1957FOBT1957 3549Pbneysojyaaom92/03/1958Depression Screening 1969Adult Bnnbsja8903/12/1979Pneumococcal Vaccine: 50+ Years (1 of 1 - PCV) 2007Zoster Vaccines (1 of 2)2007Fall Risk Rxvpkgpbf66/03/2023COVID- 19 Vaccine ( season), 06/09/2020, 05/19/2020 Influenza Vaccine (#1)/6276Fuxkyinyqvj59 Colorectal Cancer Qpprjcfad38/18/2034HIB VaccinesAged OutNo longer eligible based on patient's [...] topic Insurance Care Teams Team MemberRelationshipSpecialtyStart DateEnd Devon Craven MD [address] [facility] [facility] [place] [id number] PCP - Vhcnwgw75/12/25
--- OUTSIDE RECORDS SUMMARY | 2025-02-09 13:24 | XMS_ITS | Encounter Summary ---
Author Organization [facility] Address [address] [place] [address] Care Team Providers Care Welder Gas Name Role Phone Devon Craven MD Primary Care Provider [phone] Encounter Details DateTypeDepartmentCare Team (Latest Contact Info)Fguuaisibra75/01/2025Telephone [facility] [address] [place] [address] Tania Colon MA Social History Tobacco UseTypesPacks/DayYears UsedDateSmoking Tobacco: NeverSmokeless Tobacco: NeverAlcohol UseStandard Drinks/WeekCommentsNot Currently0 (1 standard drink = 0.6 oz pure alcohol)Sex and Gender InformationValueDate RecordedSex Assigned at VmfgxXmem07/13/2025 2:00 PM EDTLegal AfuRqpg1709/05/2021 11:07 PM EDTGender HkexsnpiUbyp96/13/2025 2:00 PM EDTSexual OrientationHeterosexual or Straight 12/20/2024 2:00 PM EDTdocumented as of this encounter Plan of Treatment Not on file documented as of this encounter Visit Diagnoses Diagnosis Primary hypertension Unspecified essential hypertension documented in this encounter Care Teams Team MemberRelationshipSpecialtyStart DateEnd Date Devon Craven MD [address] [place] [address] PCP - Xvvvgug37/12/25documented as of this encounter
--- OUTSIDE RECORDS SUMMARY | 2025-02-09 13:24 | XMS_ITS | Clinical Summary ---
Author Organization [facility] Address [address] [place] [address] Care Team Providers Care Shareholder Name Role Phone Devon Craven MD Primary Care Provider [phone] Allergies Active AllergyReactionsCriticalityNoted AohlVqzpxpseFmdzpkjirnyFoaym27/11/2025 Vwaytksprvylu04/11/2025 Medications MedicationSigDispense QuantityRefillsLast FilledStart DateEnd DateStatus Magnesium 400 MG capsule Take 1 tablet by mouth DailyActive ferrous sulfate 325 (65 Fe) MG EC tablet Take 325 mg by mouth in the morning and 325 mg in the evening. Take with meals. Do not crush, chew,or split.Active oxyCODONE (Oxy-IR) 5 MG immediate release capsule Take 5 mg by mouth every 4 (four) hours if needed for severe painActive tiZANidine (Zanaflex) 4 MG capsule Take 8 mg by mouth at bedtimeActive tadalafil (Cialis) 5 MG tablet Take 5 mg by mouth DailyActive carvedilol (Coreg) 25 MG tablet Take 25 mg by mouth in the morning and 25 mg in the evening. Take with meals. Active hydroCHLOROthiazide (HYDRODiuril) 25 MG tablet Take 12.5 mg by mouth DailyActive Active Problems No known active problems Encounters DateTypeDepartmentCare KnmlAqlqgoeiqif50/07/2025 11:15 AM ESTOffice Visit [facility] [address] [place] [address] Mahamed Jeter, DPM Pain of toe of right foot; Pain in toe of left foot; Pain of left foot; Pain around toenail, left foot; Pain around toenail, right foot01/14/2025amboo flowsheet [facility] [place] [facility] [address] [place] [phone] Mahamed Jeter DPM 01/14/20257470Hpqbvy54/31/8326Uujpeu33/15/2025bstract [facility] [place] [facility] [address] [place] [id number] Mahamed Jeter DPM from Last 3 Months Family History Medical HistoryRelationNameCommentsMelanomaBrotherHeart diseaseFatherMelanoma FathercvaMotherRelationNameStatusCommentsBrotherFatherMother Social History Tobacco UseTypesPacks/DayYears UsedDateSmoking Tobacco: NeverSmokeless Tobacco: Never Tobacco Cessation:Counseling Given: Not Answered Alcohol UseStandard Drinks/WeekCommentsNever0 (1 standard drink = 0.6 oz pure alcohol)Sex and Gender InformationValueDate RecordedSex Assigned at BirthNot on fileLegal LyzVzlg3405/22/2022 7:12 PM EDTGender IdentityNot on fileSexual OrientationNot on file Last Filed Vital Signs Vital SignReadingTime TakenCommentsBlood Thjhjuur687/8007 4:07 PM EDT Aknvx9620/30/2025 4:07 PM GDCHtvkarctbvs76.1 ??C (98.7 ??F)10/06/2024 4:07 PM EDTRespiratory Rate--Oxygen Saturation--Inhaled Oxygen Concentration--Weight-- Height--Body Mass Index-- Plan of Treatment Health MaintenanceDue DateLast DoneCommentsCT Okzggblnaxzm77/03/1958FIT-DNA 1957FIT1957FOBT1957 5857Ykiquaxtwwsgf17/03/1958Pneumococcal Vaccine: 65+ Years (1 of 1 - PCV)2007COVID-19 Vaccine ( - 2024- season) , 06/09/2020, 05/19/2020Influenza Vaccine (#1)2024 12/29/20206311Lvyqfjlfbwg66olorectal Cancer Iwhjiyxtd71/18/2034 Insurance Care Teams Team MemberRelationshipSpecialtyStart DateEnd Devon Craven MD [address] [place] [phone] PCP - GeneralFamily Medicine09/08/24
--- NOTE | 2025-02-09 13:26 | MR_ITS ---
The [address] [address] Patient Name: BRADEN PAYNE MRN: [id number] date: 1955 Sex: M Assigned Patient Location: MRI Current Patient Location: MRI Accession/Order Number: [id number] Exam Date: 02/09/2025 14:00 Report Date: 02/09/2025 22:21 At the request of: ESTER CAIN MD Procedure: MR lumbar spine wo con MRI lumbar spine performed without contrast INDICATION: Lumbar radiculopathy, postsurgical changes with radiculopathy, bilateral foot drop radiating into the right and left leg Comparison: 02/25/2023 FINDINGS: Mild dextrocurvature. Interval multilevel discectomy and spacer placement L3-S1. Posterior pedicle screw hardware L3-S1. Laminectomy changes at the L5 and L4 vertebral body levels. Moderate severe disc space narrowing L1-L3 with Junction degenerative changes at L2-3. There are Modic type I and type III endplate marrow changes at L2-3. Modic type I endplate changes L1-L2.. Conus medullaris terminates at mid L2 T12-L1: Schmorl's node deformities. Gpgw-kf-jyncahmv disc space narrowing and facet arthropathy. No disc protrusion or disc bulge. L1-L2: There is a broad-based disc bulge asymmetric towards the right with endplate osteophytosis and facet arthropathy. Moderate central canal narrowing. There is a superimposed right foraminal to extraforaminal zone bulge there is moderate severe right and moderate left neural foraminal narrowing. Correlate with right L1 radiculopathy. L2-L3: Junctional degenerative changes with circumferential disc bulge with associated endplate osteophytosis extending both foramina zones and bilateral facet arthropathy. There is moderate severe central canal stenosis and right subarticular recess narrowing. There is moderate severe bilateral neural foraminal narrowing with encroachment upon both L3 nerve roots. L3-4: Evidence of extreme lateral discectomy and fusion.. Minimal diffuse disc osteophyte complex with spurring extending both foramina zones noted resulting in moderate right moderate to severe left neural foraminal narrowing. Canal is patent. Left subarticular zone not well evaluated due to artifacts. L4-5: Prior posterior and extreme lateral discectomy and fusion. Diffuse endplate osteophytosis and spurring extending both foramina zones causing moderate to severe bilateral neural foraminal narrowing. Canal is decompressed. L5-S1: Prior posterior fusion and extreme lateral discectomy noted. Diffuse disc osteophyte complex extending to both foramina zones causing moderate left and moderate to severe right-sided neural foraminal narrowing, correlate with possible right L5 radiculopathy. Within the left subarticular zone, there is a focal T2 hyperintensity noted unclear if this is a root sheath versus a synovial cyst arising from the left facet joints measuring 6 mm in size effacing the subarticular space, correlate with left S1 radiculopathy. MR/MR lumbar spine wo con IMPRESSION: Interval postsurgical changes status post multilevel extreme lateral discectomy and posterior enhancement effusion L3-S1 and laminectomy changes. Moderate severe Junction degenerative changes L2-L3 and the predominantly right-sided neural foraminal narrowing at L1-L2 Impression dictated by: Mario Lees M.D. 02/09/2025 10:21 PM Dictation Location: [place] [address] Electronically authenticated by: [id number] Y Date: 02/09/2025 22:21
--- OUTSIDE RECORDS SUMMARY | 2025-02-09 13:29 | XMS_ITS | CCD ---
Author Organization [facility] Care Team Providers Care Checkman Name Role Phone ESTER CAIN Referring Unavailable [...] Unavailable MD Ester Cain Primary Care Provider [phone] MD Shae Guillory Attending Provider [phone] Ester Cain MD Primary Care Provider [phone] Ester Cain MD M Primary Care Provider [phone] PELLE, KATHERINE Referring Unavailable HOY, ESTER M Primary Care Unavailable PELLE, KATHERINE Referring Unavailable HOY, ESTER M Primary Care Unavailable BONUS, ALFONSO M Referring Unavailable HOY, ESTER M Primary Care Unavailable Katherine Sagar JERNIGAN Md Unavailable Unavailable MD Ester Cain M Primary Care Provider [phone] MD Camryn Agustin Attending Provider PELLE, KATHERINE [...] BOSS Attending Unavailable PELLE, KATHERINE Referring Unavailable ESTER CAIN M Primary Care Unavailable PELLE, KATHERINE Referring Unavailable ESTER CAIN M Primary Care Unavailable PELLE, KATHERINE Referring Unavailable HOY, ESTER M Primary Care Unavailable PELLE, KATHERINE Referring Unavailable BONUS, ALFONSO Attending Unavailable ESTER CAIN M Primary Care Unavailable PELLE, KATHERINE Referring Unavailable BONUS, ALFONSO Attending Unavailable MERLINCandiceESTER M Primary Care Unavailable HOY, ESTER M Primary Care Unavailable PELLE, KATHERINE Referring Unavailable Ester Cain MD Primary Care Provider [phone] Ester Cain MD Primary Care Provider [phone] Mahamed Gray DPM Attending Provider [phone] Camryn Agustin Attending Unavailable MerissaEster M Primary Care Unavailable Camryn Agustin Admitting Unavailable MerlinEster poole M Primary Care Unavailable Mahamed Gray. Admitting Unavailable Mahamed Gray Attending Unavailable Citlali Purcell Attending Provider TELLO HORNER Attending Unavailable Camryn AGUSTIN Attending Unavailable Camryn AGUSTIN Attending Unavailable Ester Cain MD Primary Care Provider [phone] MAHAMED GRAY Attending Unavailable MAHAMED GRAY Attending Unavailable MAHAMED GRAY Attending Unavailable Allergies Allergy ClassificationReported Allergen(s)Allergy TypeDate of OnsetReaction(s) FacilityPenicillins (antibiotic) (4 sources)PenicillinsDrug Ionngal39-21-9835EaioRdsSt. Mary's Medical Center Repository (10 sources)Penicillin; Translations: [penicillin]Drug AllergyEruption of skin (disorder)[facility] (14 sources)Penicillins; Translations: [PENICILLINS]Drug allergy (disorder) 72-17-2116CimyEbuProMedica Flower [facility] (20 sources)PenicillinsPropensity to adverse nkgzskxip31-19-2622PsdxMbcdmwsrd Clinic (20 sources)Methocarbamol; Translations: [methocarbamol]Drug Gxelkbo10-03-5571 Patient reported problems (finding), [facility]oleranceC[facility] [place] (15 sources)PenicillinsPropensity to adverse azeewigiz18-37-0377GzhfHnyzyojro Clinic (1 source)Unable to AssessDrug allergy (disorder)43-79-5546VkqfxyycjPromedica Toledo Hospital Repository (6 sources)MethocarbamolDrug Qztijnd19-93-0558AWUF Healthcare (6 sources)PenicillinsPropensity to adverse nuufrjaya25-21-6417WyeddYJWO Healthcare (1 source)amLODIPine; Translations: [AMLODIPINE]Drug Cfkesmx32-54-9904MuajrbdetyRegency Hospital Company Repository (1 source)No Known Medication Allergies; Translations: [No Known Medication Allergies]Propensity to adverse reactions (disorder)[facility] Repository Medications Current Medications MedicationDrug Class(es)DatesSig (Normalized)Sig (Original)acetaminophen 325 mg oral tablet (20 sources)Start: 01-81-7632ljqr 2 tablets enteral route every six hours as neededacetaminophen (TYLENOL) 325 mg tablet 2 tablets by ORAL/FEEDING TUBE route every 6 hours as needed for pain. 10/04/2023 ActiveStart: 95-63-8332brou 2 tablets by mouth every four hoursacetaminophen (TYLENOL) 325 mg tablet 2 tablets by ORAL/FEEDING TUBE route every 4 hours. 0 08/22/2023 ActiveamLODIPine 5 mg oral tablet (1 source)Dihydropyridine Calcium Channel BlockerStart: 88-21-5629uime 1 tablet by mouth once dailyamLODIPine 5 mg Tab 5 mg = 1 tab(s), Oral, Daily, Refills(s) 0 Start Date: 11/15/24 Status: Ordered Repeat number: 1aspirin 81 mg delayed release oral tablet (15 sources)Platelet Aggregation Inhibitor, Nonsteroidal Anti-inflammatory Drug Start: 27-33-2921uode 1 tablet by mouth once dailyaspirin, enteric [...] administerwith a meal/food Complies with drug therapyStart: 42-19-5987cbmh 1 tablet by mouth once dailycarvedilol 25 mg Tab 25 mg = 1 tab(s), Oral, Daily, Refills(s) 0 Start Date: 11/11/23 Status: OrderedRepeat number: 1Start: 10-04-2023 End: 37-13-9501vohv 1 tablet by mouth twice daily at mealtimecarvedilol (COREG) 25 mg tablet Take 1 tablet by mouth two times a day with meals. 60 tablet 10/04/2023 ActiveStart: 26-45-6671oqxe 1 tablet by mouth twice daily at mealtime carvedilol (COREG) 12.5 mg tablet Take 12.5 mg by mouth two times a day with meals. 0 03/11/2023 ActiveStart: 68-00-0935gsno 1 tablet by mouth twice daily carvedilol 6.25 mg Tab 6.25 mg = 1 tab(s), Oral, BID, Refills(s) 0 Start Date: 09/11/22 Status: OrderedStart: 19-41-5274ojff 1 tablet by mouth twice daily carvedilol 25 mg Tab 25 mg = 1 tab(s), Oral, BID, Refills(s) 0, High blood pressure Start Date: 04/03/22 Status: OrderedComment on above:Take 12.5 mg by mouth two times a day with meals.Celebrate Multivitamin (5 sources)Start: 78-22-2819tivu 1 tablet by mouth once dailyCelebrate Multivitamin 1 tab(s), Oral, Daily, Prophylaxis Start Date: 04/22/22 Status: Orderedcyclobenzaprine hydrochloride 10 mg oral tablet (2 sources)Muscle RelaxantStart: 79-08-3002jvji 1 tablet by mouth three times daily as needed for muscle spasmscyclobenzaprine 10 mg Tab 10 mg = 1 tab(s), Oral, TID, PRN for spasm, Refills(s) 0 Start Date: 10/23/23 Status: Ordered diclofenac sodium 0.03 mg/mg topical gel (20 sources)Nonsteroidal Anti-inflammatory DrugStart: 45-76-7719mumwtldddl topical 3% topical gel 1 judy, Topical, BID, Refill(s) 0 Start Date: 11/15/24 Status: Ordered Repeat number: 1Start: 09-12-2023 End: 93-57-7863tbbknjkznn (VOLTAREN ARTHRITIS PAIN) 1 % topical gel Apply 2 g to affected area two times a day. 120 g 1 09/12/2023 11/11/2023 Activedocusate sodium 50 mg / sennosides, detention 8.6 mg oral tablet (20 sources)Start: 79-45-2483kdcw 2 tablets by mouth every twelve hours as neededsenna-docusate (SENNA-S) 8.6-50 mg per tablet Take 2 tablets by mouth two times a day as needed forconstipation. 20 tablet 06/08/2024 ActiveStart: 32-56-3790ojlj 2 tablets by mouth twice dailysenna-docusate (SENNA-S) 8.6-50 mg per tablet Take 2 tablets by mouth two times a day. 20 tablet 08/22/2023 Suspendedferrous sulfate 325 mg delayed release oral tablet (6 sources)take 1 tablet by mouth in the morningferrous sulfate 325 (65 Fe) MG EC tablet Take 325 mg by mouth in the morning and 325 mg in the evening. Take with meals. Do not crush, chew, or split. ActiveFish Oils (3 sources)Start: 64-32-3009irdi 1 capsule by mouth once dailyFish Oil 1 cap, Oral, Daily, Prophylaxis Start Date: 04/22/22 Status: Orderedfurosemide 40 mg oral tablet (20 sources)Loop Diuretictake 1 tablet by mouth once dailyfurosemide (LASIX) 40 mg tablet Take 40 mg by mouth once daily. Activegabapentin 300 mg oral capsule (20 sources)Anti-epileptic AgentStart: 09-10-2023 End: 76-02-6493fgdi 1 capsule by mouth every eight hoursgabapentin (NEURONTIN) 300 mg capsule Take 1 capsule by mouth every 8 hours for 30 days. 90 capsule 10/09/2023 Activeisoniazid 300 mg oral tablet (1 source)AntimycobacterialStart: 21-71-4942auzq 1 tablet by mouth once daily isoniazid 300 mg Tab 300 mg = 1 tab(s), Oral, Daily, Refills(s) 0 Start Date: 09/26/20 Status: Orderedlidocaine 0.05 mg/mg medicated patch (20 sources)Antiarrhythmic, Amide Local AnestheticStart: 79-11-4347rzobxvxtc Top 5% film Patch 1 patch(es), Topical, Daily, Refill(s) 0 Start Date: 11/15/24 Status: Ordered Repeat number: 1Start: 09-12-2023 End: 10-43-5423qsadanuda (LIDODERM) 5 % Take as instructed on package 10 Patch 1 10/09/2023 Activelisinopril 20 mg oral tablet (18 sources)Angiotensin Converting Enzyme InhibitorStart: 93-40-2521peyn 1 tablet by mouth once dailylisinopril 20 mg Tab 20 mg = 1 tab(s), Oral, Daily, Refills(s) 0 Start Date: 04/03/22 Status: OrderedStart: 07-04-2006 End: 63-21-7126zpri 1 tablet by mouth once dailylisinopril 10 mg ORAL Tab Take one(1) tablet daily. 0 07/04/2006 08/06/2023 Discontinued (Discontinued by Patient)Comment on above:Take one(1) tablet daily.Magnesium (6 sources)take 1 tablet by mouth once dailyMagnesium 400 MG capsule Take 1 tablet by mouth Daily Activemagnesium oxide 500 mg oral capsule (12 sources)Start: 56-80-3704fykf 1 capsule by mouth twice dailyMagnesium Oxide 500 mg cap Take 1 capsule by mouth two times a day. 0 08/06/2023 ActiveStart: 69-29-4689kyfh 1 tablet by mouth once dailymagnesium oxide 400 mg Tab 400 mg = 1 tab(s), Oral, Daily, Refills(s) 0, Prophylaxis Start Date: 09/26/20 Status: Ordered Repeat number: 1methylPREDNISolone (1 source)CorticosteroidStart: 11-13-2023 End: 70-09-7755jtgrkhFGNICSWqenqk (MEDROL, NIKHIL,) 4 mg Dose-Pack As instructed per package 21 tablet 11/13/2023 11/19/2023 Activemupirocin 0.02 mg/mg topical ointment (3 sources)RNA Synthetase Inhibitor AntibacterialStart: 08-06-2023 End: 13-12-2201dxqtjudoa (BACTROBAN) 2 % ointment two times a day for 5 days. Apply 0.5 inch with cotton swab (Q-tip) to each nostril in the morning and evening for 5 days prior to and including day of surgery. 22 g 0 08/06/2023 08/11/2023 Activenaloxone 4 mg/actuation nasal spray (NARCAN) (15 sources)Start: 23-42-8606yuqbnjjx 4 mg/actuation nasal spray (NARCAN) Indications: Acute postoperative pain , S/P cervical spinal fusion , Cervical spondylosis with myelopathy Use 1 spray in one nostril as needed for overdose. May repeat every 2 to 3 min in alternating nostrils until medical assistance is available 2 Each 06/08/2024 ActiveoxyCODONE hydrochloride 5 mg oral tablet (20 sources)Opioid AgonistStart: 14-45-0340zhcMJDZJE 5 mg Tab as directed, Refills(s) 0 Start Date: 11/15/24 Status: Ordered Repeat number: 1Start: 73-10-4656Sbxkigszg 5 mg tablet Active MG PO October 06, 2024 12:00am Complies with drug therapyStart: 06-21-2024 End: 08-46-6260cfqi 1 tablet by mouth every six hours as needed for pain oxyCODONE IR (ROXICODONE) 5 mg immediate release tablet Indications: Post-op pain Take 1 tablet by mouth every 6 hours as needed for pain for up to 7 days. 28 tablet 06/28/2024 07/05/2024 ActiveStart: 06-15-2024 End: 29-45-9253evsj 1 tablet by mouth every four hoursoxyCODONE IR (ROXICODONE) 5 mg immediate release tablet Indications: Post-op pain Take 1 tablet by mouth every 4 hours for 7 days. 42 tablet 06/15/2024 06/21/2024 DiscontinuedStart: 06-08-2024 End: 39-64-3301stwu 1 tablet by mouth every four hours as neededoxyCODONE IR (ROXICODONE) 5 mg immediate release tablet Indications: Acute postoperative pain , S/Pcervical spinal fusion , Cervical spondylosis with myelopathy Take 1-2 tablets by mouth every 4 hours as needed for pain (Moderate to severe postop pain) for up to 5 days. 60 tablet 06/08/2024 2:54 PM EDT 06/08/2024 06/13/2024 ActiveStart: 10-15-2023 End: 95-58-0569xhoy 1 tablet by mouth every six hours as needed for pain oxyCODONE IR (ROXICODONE) 5 mg immediate release tablet Indications: Post-op pain Take 1 tablet by mouth every 6 hours as needed for pain for up to 7 days. 28 tablet 0 10/15/2023 10/22/2023 ActiveStart: 10-09-2023 End: 51-80-0000ddev 1 tablet by mouth every four hoursoxyCODONE IR (ROXICODONE) 5 mg immediate release tablet Indications: Post-op pain Take 1 tablet by mouth every 4 hours for 7 days. 42 tablet 0 10/09/2023 10/15/2023 DiscontinuedStart: 10-04-2023 End: 91-75-8149aiyy 1 tablet by mouth every six hours as neededoxyCODONE IR (ROXICODONE) 5 mg immediate release tablet Indications: Acute post-operative pain Take1-2 tablets by mouth every 6 hours as needed for up to 7 days. 28 tablet 0 10/04/2023 10/11/2023 ActiveStart: 09-28-2023 End: 56-99-6532qpwn 1 tablet by mouth every four hours as needed for pain oxyCODONE IR (ROXICODONE) 10 mg tab Indications: S/P lumbar fusion Take 1 tablet by mouth every 4 hours as needed for pain for up to 7 days. Do not start before September 28, 2023. 42 tablet 0 09/28/2023 10/05/2023 ActiveStart: 09-15-2023 End: 05-93-9686mpdi 1 tablet by mouth every four hours as needed for pain oxyCODONE IR (ROXICODONE) 10 mg tab Indications: S/P lumbar fusion Take 1 tablet by mouth every 4 hours as needed for pain for up to 7 days. 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 28 tablet 0 09/10/2023 09/15/2023 Discontinued (Course of therapy completed)Start: 09-04-2023 End: 01-60-9086tjqw 1 tablet by mouth every six hours as needed for pain oxyCODONE IR (ROXICODONE) 5 mg immediate release tablet Indications: Acute post- operative pain Take1 tablet by mouth every 6 hours as needed for pain for up to 7 days. Do not start before September 04, 2023. 28 tablet 0 09/04/2023 09/11/2023 SuspendedStart: 08-29-2023 End: 38-17-0648njcq 1 tablet by mouth every four hoursoxyCODONE IR (ROXICODONE) 5 mg immediate release tablet Indications: Acute post-operative pain Take1 tablet by mouth every 4 hours for 7 days. 42 tablet 0 08/29/2023 09/02/2023 DiscontinuedStart: 08-22-2023 End: 20-85-6244oicm 1 tablet by mouth every six hours [...] mg oral capsule (20 sources)Start: 06-08-2024 End: 89-65-0713pfaj 2 capsules by mouth three times dailypregabalin (LYRICA) 50 mg capsule Indications: Adverse effect of treatment, sequela Take 2 capsulesby mouth three times a day for 90 days. 180 capsule 2 06/08/2024 09/06/2024 Active Start: 10-23-2023 End: 82-93-1853etjc 1 capsule by mouth twice dailypregabalin (LYRICA) 50 mg capsule Indications: Adverse effect of treatment, sequela Take 1 capsule by mouth two times a day for 90 days. 60 capsule 2 11/12/2023 Suspendedsildenafil 100 mg oral tablet (2 sources)Phosphodiesterase 5 InhibitorStart: 63-61-4970cdpb 1 tablet by mouth once daily as neededsildenafil 100 mg Tab 100 mg = 1 tab(s), Oral, Daily, PRN as needed, Refills(s) 0 Start Date: 09/11/22 Status: Orderedtadalafil 5 mg oral tablet (7 sources)Phosphodiesterase 5 InhibitorStart: 45-21-0312serj 1 tablet by mouth once daily as neededtadalafil 5 mg oral tablet 5 mg = 1 tab(s), Oral, Daily, PRN erectile dysfunction, Refills(s) 0 Start Date: 11/15/24 Status: Ordered Repeat number: 1tiZANidine 4 mg oral tablet (20 sources)Central alpha-2 Adrenergic AgonistStart: 73-98-2595Wbtaqcycxq 4 mg tablet Active MG PO October 06, 2024 12:00am Complies with drug therapyStart: 06-08-2024 End: 54-48-2360gjdx 1 tablet by mouth every eight hours as neededtiZANidine (ZANAFLEX) 2 mg tablet Indications: Acute postoperative pain , S/P cervical spinal fusion , Cervical spondylosis with myelopathy Take 3 tablets by mouth every 8 hours as needed for up to 7days. 20 tablet 06/08/2024 2:54 PM EDT 06/08/2024 06/15/2024 ActiveStart: 69-87-7452tdkk 1 tablet by mouth every eight hours in the eveningtiZANidine (ZANAFLEX) 2 mg tablet Take 3 tablets by mouth every 8 hours. 90 tablet 09/10/2023 3:56 PM EDT 09/10/2023 SuspendedStart: 71-34-8663jjqx 2 tablets by mouth at bedtimetiZANidine 4 mg Tab 8 mg = 2 tab(s), Oral, Bedtime, Refills(s) 0, Insomnia Start Date: 04/03/22 Status: Ordered Repeat number: 1tiZANidine (Zanaflex) 4 MG capsule Take 8 mg by mouth at bedtime Active Comment on above:Take 2 tablets by mouth daily at bedtime.turmeric extract 500 mg oral capsule (5 sources)Start: 25-89-7467wuvi 1 capsule by mouth once dailyturmeric 500 mg oral capsule 500 mg = 1 cap(s), Oral, Daily, Prophylaxis Start Date: 04/22/22 Status: Ordered Completed/Discontinued Medications MedicationDrug Class(es)DatesSig (Normalized)Sig (Original)acetaminophen 325 mg / HYDROcodone bitartrate 5 mg oral tablet (18 sources)Opioid AgonistStart: 11-12-2023 End: 72-97-9569ickj 1 tablet by mouth every six hours as needed for pain HYDROcodone-acetaminophen (NORCO) 5-325 mg per tablet Indications: Adverse effect of treatment, sequela Take 1 tablet by mouth every 6 hours as needed for pain for up to 7 days. 28 tablet 11/12/2023 11/19/2023 ExpiredStart: 11-05-2023 End: 92-47-7830utoy 1 tablet by mouth twice dailyHYDROcodone-acetaminophen (NORCO) 5-325 mg per tablet Indications: Post-op pain Take 1 tablet by mouth two times a day for 7 days. 14 tablet 11/05/2023 11/12/2023 ExpiredStart: 10-23-2023 End: 89-20-3083uxen 1 tablet by mouth every eight hours as needed for pain HYDROcodone-acetaminophen (NORCO) 5-325 mg per tablet Indications: Post-op pain Take 1 tablet by mouth every 8 hours as needed for pain for up to 7 days. 21 tablet 10/30/2023 11/05/2023 DiscontinuedStart: 61-78-9267tlgu 1 tablet by mouth every eight hours as needed for painacetaminophen-hydrocodone 325 mg-5 mg oral tablet 1 tab(s), Oral, q8hr as needed for pain, Refill(s) 0 Start Date: 09/11/22 Status: OrderedStart: 17-02-8280zlyq 1 tablet by mouth every eight hours as needed for painacetaminophen-hydrocodone 300 mg-5 mg oral tablet 1 tab(s), Oral, q8hr as needed for pain, Refill(s) 0 Start Date: 09/26/20 Status: Ordered fluorouracil 50 mg/ml topical cream (17 sources)Nucleoside Metabolic InhibitorStart: 07-04-2006 End: 75-45-7513Hawfpauajrwd 5 % TOPICAL Crea bid 15 days R and L lat face to behind ears as discussed--wait 2 wk before starting 45gm 0 07/04/2006 08/06/2023 Discontinued (Discontinued by Patient)Comment on above:bid 15 days R and L lat face to behind ears as discussed--wait 2 wk before startingmethocarbamol 750 mg oral tablet (12 sources)Muscle RelaxantStart: 92-29-5705djch 1 tablet by mouth every six hoursmethocarbamol [...] Reductase Inhibitor Antibacterial, Sulfonamide AntimicrobialStart: 09-13-2024 End: 66-88-4348ezkr 1 tablet by mouth every twelve hourssulfamethoxazole- trimethoprim (Bactrim DS) 800-160 MG per tablet Take 1 tablet by mouth every 12 (twelve) hours 09/13/2024 09/22/2024 Problems Active Problems Problem ClassificationProblemDateDocumented DateEpisodic/ChronicAbdominal hernia (19 sources)Hernia of anterior abdominal wall; Translations: [Ventral hernia without obstruction or gangrene]Onset: 48-43-9545TsopoovkPfxwamlcg pain (14 sources)Epigastric pain; Translations: [Epigastric pain]Onset: 03-16-2022 EpisodicAcquired foot deformities (20 sources)Right foot drop; Translations: [Foot drop, right foot]Onset: 231195-90-4089MbzxpfgoVfjngvk dysrhythmias (20 sources)Supraventricular tachycardia; Translations: [Ventricular premature beats]Onset: 068810-37-2832MiagmxsQbitbzt ulcer of skin (6 sources)Neuropathic ulcer; Translations: [Non-pressure chronic ulcer of skin of other sites limited to breakdown of skin]11-04-2541WnknxxqGvmfvezssi and other anemia (2 sources)Iron deficiency anemia; Translations: [Iron deficiency anemia, unspecified]67-26-2927MuhwvtunPylkuivhav and other anemia (2 sources)Iron deficiency anemia, unspecified; Translations: [Iron deficiency anemia, unspecified iron deficiency anemia type]Onset: 76-98-7696Wxspeerx Disorders of lipid metabolism (9 sources)Pure hypercholesterolemia, unspecified; Translations: [Pure hypercholesterolemia]Onset: 59-08-7985DlvqqjsOtlmihvrvqovup and diverticulitis (14 sources)Diverticular disease; Translations: [Diverticula of intestine]Onset: 481754-30-5625DjhdajxItfiqeubc hypertension (20 sources)Hypertensive disorder; Translations: [Essential hypertension]Onset: 391795-07-6113EwmavtuGmorntltkcygr symptoms and ill-defined conditions (5 sources)Blood in urine; Translations: [Gross hematuria]Onset: 12-05-2022 EpisodicHemorrhoids (9 sources)Internal twbdlavdsop32-27-8252XdrhungyLmixzvgrddc of prostate (9 sources)Benign prostatic hypertrophy with outflow obstruction; Translations: [Benign prostatic hyperplasia with lower urinary tract symptoms]Onset: 28-57-8134HvazaxjGznrdfn and fatigue (1 source)Asthenia; Translations: [Weakness]98-97-3711AhwxqhjhFqxqgswji of unspecified nature or uncertain behavior (20 sources)Neoplasm of uncertain behavior of skin; Translations: [Neoplasm of uncertain behavior of skin]Onset: 829893-69-6197HemhgkicGibhl acquired deformities (20 sources)Other secondary scoliosis, site unspecified; Translations: [Disorder of bone and cartilage, unspecified]Onset: 396238-81-6647BihfkxvOsgxf acquired deformities (1 source)Spondylolysis; Translations: [Spondylolysis, lumbar region]06-29-2024 EpisodicOther acquired deformities (1 source)Spondylolysis, lumbar region; Translations: [Spondylolysis, lumbar region]Onset: 68-83-9169AboqnkqkOzxzb aftercare (1 source)Surgical follow-up; Translations: [Encounter for removal of sutures] 88-23-2427WiexencqPpoew and ill-defined heart disease (2 sources)Cardiomegaly; Translations: [Cardiomegaly]Onset: 44-55-4301Fjcbkza Other and unspecified benign neoplasm (9 sources)Dermal cellular xaxgr89-46-8006VdytysvoHqaai and unspecified benign neoplasm (1 source)Benign neoplasm of colon; Translations: [Benign neoplasm of colon, unspecified]Onset: 53-73-1284AfgoydinLeqie and unspecified benign neoplasm (2 sources)Adenomatous polyp of foams54-24-7205IgsilzfaZvjdn and unspecified benign neoplasm (2 sources)History of polyp of colon; Translations: [Personal history of adenomatous and serrated colon polyps]Onset: 09-81-0009UeojepteQrarz circulatory disease (6 sources)Absent pulse; Translations: [Other specified symptoms and signs involving the circulatory and respiratory systems]09-25-6208YcrdpccdLcgbn connective tissue disease (20 sources)History of lumbar fusion; Translations: [Arthrodesis status]Onset: 977173-60-2553NadoqyalFtjkz connective tissue disease (17 sources)History of cervical spine fusion; Translations: [Arthrodesis status] Onset: 752477-21-1593SrqfgcbnXvpwe connective tissue disease (3 sources)Arthrodesis status; Translations: [S/P cervical spinal fusion]Onset: 73-67-5496YtivtrrpSoipa diseases of kidney and ureters (1 source)Urinary tract obstruction; Translations: [Other obstructive and reflux uropathy]Onset: 74-34-0788IozlyefyDbcpw nervous system disorders (1 source)Other chronic pain; Translations: [Chronic low back pain, unspecified back pain laterality, unspecified whether sciatica present]Onset: 05-04-2023 ChronicOther nervous system disorders (1 source)Lumbosacral plexus neuropathy; Translations: [Lumbosacral plexus disorders]30-93-3147JshagyyKwupv nervous system disorders (4 sources)Idiopathic peripheral neuropathy; Translations: [Hereditary and idiopathic neuropathy, unspecified]55-20-0743BvvqqipXgppj nervous system disorders (20 sources)Acute postoperative pain; Translations: [Other acute postprocedural pain]Onset: 863571-06-1311RgljdrduEisoq nervous system disorders (7 sources)Postoperative pain ; Translations: [Other acute postprocedural pain] 72-59-0375SbsokkvxBjdfq nervous system disorders (1 source)Finding related to ability to move; Translations: [Other abnormalities of gait and mobility]91-15-1852OketiubzCdfyv nervous system disorders (3 sources)Other acute postprocedural pain; Translations: [Postoperative pain after spinal surgery]Onset: 45-82-0987WuuutmqhVqpwd non-epithelial cancer of skin (9 sources)Squamous cell carcinoma of bridge of wosv04-82-3341NpeuxiasJgqau nutritional; endocrine; and metabolic disorders (9 sources)Overweight in adulthood with body mass index of 25 or more but less than 7503-30-2165PizepvvnIunne nutritional; endocrine; and metabolic disorders (3 sources)Dtxvctntft10-07-7280MpzsroikCoron screening for suspected conditions (not mental disorders or infectious disease) (20 sources)Abnormal results of liver function studies; Translations: [Encounter for screening for malignant neoplasm of prostate]Onset: 38-58-4183EmjpbowgBlamx skin disorders (9 sources)Inflamed seborrheic zksnpfecj51-93-3736JeaehyiwFskzg skin disorders (9 sources)Senile vvgoehcpbeiidb31-88-1801RqstavfkXskqb skin disorders (9 sources)Skin sya53-08-4194VeqspvjhSlmykhfzpt and visceral atherosclerosis (5 sources)Peripheral vascular disease, unspecified; Translations: [Peripheral vascular disease, unspecified]Onset: 875383-94-7419DxypejtCsstedex codes; unclassified (4 sources)H/O Spinal surgery; Translations: [Other specified postprocedural states]97-69-2586PogogxsnFqusuyoj codes; unclassified (1 source)Other specified postprocedural states; Translations: [History of laminectomy]Onset: 25-17-0474YxkzcjeoMzfvkquc codes; unclassified (1 source)History of hernia repair; Translations: [Other specified postprocedural states]76-04-5185HexjyewqKxoyqgblkjo; intervertebral disc disorders; other back problems (20 sources)Lumbar spondylosis; Translations: [Cervical spondylosis]Onset: 685639-90-4497FibnkfuOpaoeneoptt; intervertebral disc disorders; other back problems (20 sources)Lumbar radiculopathy; Translations: [Radiculopathy, cervical region] Onset: 403593-23-8241XwcijassRoeyvebtutrm (9 sources)Patient encounter wljloh26-78-3385Wozzdxpwajsp (1 source)Chronic low back pain, unspecified back pain laterality, unspecified whether sciatica present; Translations: [Chronic low back pain, unspecified back pain laterality, unspecified whether sciatica present]Onset: 38-69-7243Wwmqscqb veins of lower extremity (5 sources)Varicose veins of lower uaqibpgys47-13-7839Oiytmdvs Past or Other Problems Problem ClassificationProblemDateDocumented DateEpisodic/ChronicAllergic reactions (20 sources)Allergy to penicillin; Translations: [Allergy status to penicillin] Onset: 329528-56-2603WjkyhaunBkitiltbwvynd of surgical procedures or medical care (5 sources)Complication of procedure; Translations: [Complication of surgical and medical care, unspecified, sequela]Onset: 802905-66-7750UjadwwuoBlnry and unspecified benign neoplasm (20 sources)Benign neoplasm of skin; Translations: [Other benign neoplasm of skin, unspecified]Onset: 937293-14-5513KdissunbChlaf connective tissue disease (20 sources)Swelling of lower limb; Translations: [Other specified soft tissue disorders]Onset: 784768-77-8881KrtcllcuOsikn connective tissue disease (20 sources)Pain in lower limb; Translations: [Pain in leg, unspecified]Onset: 939989-18-6620GctluzqkSbodj connective tissue disease (3 sources)Other symptoms and signs involving the musculoskeletal system; Translations: [Other musculoskeletalsymptoms referable to limbs]Onset: 929902-31-8043TyyfiwolHwshk connective tissue disease (2 sources)Other specified soft tissue disorders; Translations: [Localized swelling of lower extremity]Onset: 03-41-8453QexrumliFkivd connective tissue disease (1 source)Pain in leg, unspecified; Translations: [Pain and swelling of lower extremity, unspecified laterality]Onset: 92-75-1014GgpnhdcdBwlwc skin disorders (20 sources)Seborrheic keratosis; Translations: [Other seborrheic keratosis] Onset: 862137-62-6957PslfjvqbIiylrdgo codes; unclassified (20 sources)Pain; Translations: [Pain, unspecified]Onset: EpisodicResidual codes; unclassified (20 sources)Bilateral lower limb edema; Translations: [Localized edema]Onset: 368029-34-9938VjktnmunAnjninaimnfv (2 sources)History of cervical spine uvwsnn79-22-4968Hracgxdmlgmd (2 sources)PAD (peripheral artery disease)09-20-2024 Results Test NameValueInterpretationReference RangeFacilityReminderson 01-06-2025 RemindersReminders From: Caroline Bird LPN To: N - Clinical; Sent: 01/06/2025 14:24:45 EDT Show up: 12/07/2027 07:00:00 EDT Subject: colonoscopy recall Due Date/Time: 01/06/2028 07:00:00 EDT Reminder/Recall Patient due for colonoscopy 01/06/2028 due to history of villous adenoma. (2023) [facility] HospitalOffice Visiton 02-67-2160Gtxzdi-up visit [id number] Braden Rodriguez 1955 M [facility] Provider Department Center 12/24/2024 Paul-TELLO HORNER CLAUDIA [facility] Family History Problem Relation Age of Onset Stroke Mother Melanoma Father Coronary artery disease Father Melanoma Brother Family Status - Relation Status Age at Mother Father Brother Level of Service:9[address] [place] OFFICE/OP CONSLTJ NEW/EST PT LOW MDM 30 MINUTESNormal [facility] CompanyOrders Onlyon 57-05-7424Tvqbiz [id number] Braden Rodriguez 1955 M Date Provider Department Center 12/22/2024 [id number], HISTORICAL CLAUDIA Montero Family History Problem Relation Age of Onset Stroke Mother Melanoma Father Coronary artery disease Father Melanoma Brother Family Status - Relation Status Age at Mother Father Brother DeceasedNormalUniversMercy Health Lorain HospitalAmbulatory Visit Summaryon 47-58-4832Pjdcuukzyl Visit SummaryAmbulatory Visit Summary BRADEN RODRIGUEZ :1955 [...] signed up for this yet, please contact [employer] at [phone] to get signed up today. Language Information Language assistance services are available as needed. [facility] HospitalAmbulatory Visit Summary Ambulatory Visit Summary BRADEN RODRIUGEZ :1955 Visit Date:11/23/2024 Ambulatory Visit Instructions Your Care Team Attending Physician - Camryn [...] signed up for this yet, please contact [facility] Management at [phone] to get signed up today. Language Information Language assistance services are available as needed. [facility] HospitalProvider Letteron 11-04-2024 Provider LetterProvider Letter November 04, 2024 BRADEN RODRIGUEZ [address] [place] [phone] : 1955 Dear Braden , We have [...] Sincerely, Dr. Camryn Agustin MD General Surgery [phone] Health Montpelier HospitalUS arterial pvr rest Coy 83-47-4042HU arterial pvr rest [facility] Main [place] [id number] Ultrasound Report Signed Patient: Braden Rodriguez MR#: [id number] : 1955 Acct:[id number] Age/Sex: 69 / M ADM Date: 09/27/24 Loc: Room: Type: [facility] CLI Attending Dr: Mahamed Gray DPM, Ordering Provider: Mahamed Gray DPM, , [place] Date of Service: 09/27/24 US/US arterial pvr rest LE: L96.491, i73.9, R09.89 Copies to: Mahamed Gray DPM, , [place] LOWER EXTREMITY SEGMENTAL ARTERIAL [...] Zayas MD,FACS,FSVS 09/28/2024 7:56 AM Dictation Location: [place] [address] Tech: Shania Aguilar Transcribed By: ERYN 09/28/24 0756 Dictated By: Xander Zayas MD 09/28/24 0755 Signed By: 09/28/24 0756[facility] Phys[facility] GroupJACKSON [facility] W Auto Differential panel (Bld)on 45-41-6117Hahhcdpht (Bld) [#/Vol]0.1 10*3/uLNOMS HealthcareBasophils/100 WBC (Bld)1 %Not Estab.NOMS HealthcareEosinophils (Bld) [#/Vol]0.2 10*3/uLNOMS HealthcareEosinophils/100 WBC (Bld)3 %Not Estab.NOMS HealthcareErythrocyte distribution width (RBC) [Ratio]13.2 %11.6 - 15.4 %NOMS HealthcareHematocrit (Bld) [Volume fraction]39 %37.5 - 51.0 %NOMS HealthcareHemoglobin (Bld) [Mass/Vol]12.8 g/dLLow13.0 - 17.7 g/dLNOMS HealthcareImmature granulocytes (Bld) [#/Vol]0.1 10*3/uLNOVA HealthcareImmature granulocytes/100 WBC (Bld)1 %Not Estab.[facility] HealthcareLymphocytes (Bld) [#/Vol]2.9 10*3/uLNOVA Healthcare Lymphocytes/100 WBC (Bld)31 %Not Estab.[facility] Medical CenterMCH (RBC) [Entitic mass] 31.1 pg26.6 - 33.0 pgAudrain Medical CenterHC (RBC) [Mass/Vol]32.8 g/dL31.5 - 35.7 g/dLNOChristian HospitalV (RBC) [Entitic vol]95 fL79 - 97 fLMOUNTAIN WEST MEDICAL CENTER Healthcare Monocytes (Bld) [#/Vol]1.1 10*3/uLHighMOUNTAIN WEST MEDICAL CENTER HealthcareMonocytes/100 WBC (Bld)12 % Not Estab.[facility] HealthcareNeutrophils (Bld) [#/Vol]4.8 10*3/uLNOVA Healthcare Neutrophils/100 WBC (Bld)52 %Not Estab.[facility] HealthcarePlatelets (Bld) [#/Vol]235 10*3/uLNOVA HealthcareRBC (Bld) [#/Vol]4.11 10*6/uLLowMOUNTAIN WEST MEDICAL CENTER HealthcareWBC (Bld) [#/Vol]9.2 10*3/uLKansas City VA Medical CenterLaboratory - Chemistry and Chemistry - challengeon 18-22-4215Kqpclty [Mass/Vol]4.2 g/dL3.9 - 4.9 g/dLNOVA HealthcareALP [Catalytic activity/Vol]67 U/LNOMS HealthcareALT [Catalytic activity/Vol]22 U/L NOMS HealthcareAST [Catalytic activity/Vol]31 U/LNOMS HealthcareBilirubin [Mass/Vol]0.5 mg/dL0.0 - 1.2 mg/dLNOVA HealthcareCalcium [Mass/Vol]9.3 mg/dL8.6 - 10.2 mg/dLNOVA HealthcareChloride [Moles/Vol]101 mmol/L96 - 106 mmol/LNOMS HealthcareCO2 [Moles/Vol]24 mmol/L20 - 29 mmol/LNOMS HealthcareCreatinine [Mass/Vol]1.23 mg/dL0.76 - 1.27 mg/dLNOVA HealthcareCRP [Mass/Vol]9 mg/L0 - 10 mg/LNOMS HealthcareGFR/1.73 sq M.predicted among non-blacks MDRD (S/P/Bld) [Vol rate/Area]64 mL/min/{1.73_m2}59 - PINF mL/min/1.73NOMS HealthcareGlobulin (S) [Mass/Vol]1.6 g/dL1.5 - 4.5 g/dLNOVA HealthcareGlucose [Mass/Vol]89 mg/dL70 - 99 mg/dLNOVA HealthcarePotassium [Moles/Vol]5.5 mmol/LHigh3.5 - 5.2 mmol/LNOMS HealthcarePrealbumin [Mass/Vol]26 mg/dL10 - 36 mg/dLNOVA HealthcareProtein [Mass/Vol]5.8 g/dLLow6.0 - 8.5 g/dLNOVA HealthcareSodium [Moles/Vol]139 mmol/L 134 - 144 mmol/LNOMS HealthcareUrea nitrogen [Mass/Vol]23 mg/dL8 - 27 mg/dLKansas City VA Medical CenterUrea nitrogen/Creatinine [Mass ratio]19 mg/mg10 - 24NOSoutheast [facility] Laboratory - Hematology and Cell countson 51-14-5036SLX (Bld) [Velocity]5 mm/h [facility] Medical CenterNo Panel Informationon 94-23-6540Clwwbmaxivqnkg and review of laboratory resultsAbMcLaren Greater Lansing HospitalPerformed at: - [facility] [address] [id number] [employer] Machine Operator: Scout Ludwig PhD, Phone: [phone] HealthcareCNOV on 20-24-5638GNZXFrljsrRixtzimwn Clinic ClevelandCNPNon 65-83-7455LZPDXjdpck [facility]25([place])D3 SerPl-mCncon 81-15-381457866688-vxqehpbyprjkkr D3 [Mass/Vol]42.5 ng/aZXzthkz83.0-80.0[facility] Medical CenterComment on above: Order Comment: Specimen Type: BLOOD SPECIMENOrdering Facility: [facility] Address:[address] [place] [address]Qsdkte Comment: Classification of 25 [place] Vitamin D status:Deficiency/Insufficiency: < or = 30 ng/ml.Sufficiency/Optimal Levels: 31-80 ng/mLToxicity: > 100 ng/mL.Test performed by chemiluminescent immunoassay.Performed By: #### 1989-3 ####[facility] [id number] [address]CBC panel Auto (Bld)on 06-08-2024 Erythrocyte distribution width (RBC) [Ratio]12.7 %Jhewye31.5-15.0[facility] Medical CenterComment on above:Order Comment: Specimen Type: BLOOD SPECIMENOrdering Facility: [facility] Address:[address] [place], [place] [address]Performed By: #### 45687-7 ####[facility] [id number] [address] BOWEN STREETHematocrit (Bld) [Volume fraction]40.4 %Vdncne51.0-51.0[facility] on above:Order Comment: Specimen Type: BLOOD SPECIMENOrdering Facility: [facility] Address:[address] [place], [place] [address]Performed By: #### 45204-1 ####[facility] [id number] [address] [place] Hemoglobin (Bld) [Mass/Vol]13.2 g/gDYhmgbi41.0-17.0[facility] Comment on above:Order Comment: Specimen Type: BLOOD SPECIMENOrdering Facility: [facility] Address:[address] [place] [address] Performed By: #### 34108-2 ####[facility] [id number] [place] [address] [place] MCH (RBC) [Entitic mass]30.9 ahKqwjrw64.0-34.0[facility] on above:Order Comment: Specimen Type: BLOOD SPECIMENOrdering Facility: [facility] Address:[address] [place] [address] Performed By: #### 61786-3 ####[facility] LABIA [id number] [place] [address] [place] MCHC (RBC) [Mass/Vol]32.7 g/fZQabskh72.5-36.0[facility] on above:Order Comment: Specimen Type: BLOOD SPECIMENOrdering Facility: [facility] Address:[address] [place] [address] Performed By: #### 07022-7 ####[facility] [id number] [place] [address] [place] MCV (RBC) [Entitic vol]94.6 xBEaslet14.0-100.0[facility] on above:Order Comment: Specimen Type: BLOOD SPECIMENOrdering Facility: [facility] Address:[address] [place] [address] Performed By: #### 53716-9 ####[facility] [id number] [place] [address] [place] Nucleated RBC (Bld) [#/Vol]10*3/uLNormal<0.01[facility] on above:Order Comment: Specimen Type: BLOOD SPECIMENOrdering Facility: [facility] Address:[address] [place] [address] Performed By: #### 10478-4 ####[facility] [id number] [place] [address] [place] Platelet mean volume (Bld) [Entitic vol]10.7 fLNormal9.0-12.7CVeterans Health Administration on above:Order Comment: Specimen Type: BLOOD SPECIMENOrdering Facility: [facility] Address:[address] [place], [place] [address]Performed By: #### 39110-2 ####[facility] [id number] [id number] [address] [place] Platelets (Bld) [#/Vol]277 10*3/dLZssgiv341-849YuinuowbwMiami Valley Hospital on above:Order Comment: Specimen Type: BLOOD SPECIMENOrdering Facility: [facility] Address:[address] [place] [address] Performed By: #### 08117-7 ####[facility] LABCLIA [id number] [place] [address] [place] RBC (Bld) [#/Vol]4.27 10*6/uLNormal4.20-6.00[facility] on above:Order Comment: Specimen Type: BLOOD SPECIMENOrdering Facility: [facility] Address:[address] [place], [place] [address]Performed By: #### 81757-3 ####[facility] LABCLIA [id number] [place] [address] [place] AMERICAWBC (Bld) [#/Vol]8.97 10*3/uLNormal3.70-11.00[facility] on above:Order Comment: Specimen Type: BLOOD SPECIMENOrdering Facility: [facility] Address:[address] [place], [place] [address]Performed By: #### 03809-8 ####[facility] LABCLIA [id number] [place] [address] [place] AMERICACNDSon 33-75-6267OLZIQriirw [facility] CenterComprehensive metabolic 2000 panelon 49-56-7799Xbkbnus [Mass/Vol]3.5 g/dLLow3.9-4.9CVeterans Health Administration on above:Order Comment: Specimen Type: BLOOD SPECIMENOrdering Facility: [facility] Address:[address] [place], [place] [address]Performed By: #### 92375- 9, 59620-0, HSTNT, 2777-1 ####[facility] LABCLIA [id number] [address] [address] [place] AMERICAALP [Catalytic activity/Vol]80 U/ELidltl05-654OjujvkmyrMiami Valley Hospital on above:Order Comment: Specimen Type: BLOOD SPECIMENOrdering Facility: [facility] Address:[address] [place], [place] [address]Performed By: #### 53267-5, 54981-1, HSTNT, 277-1 ####[facility] LABCLIA [id number] [place] [address] [place] ALT [Catalytic activity/Vol]10 U/QWnxbxc95-06HhrwdnzzlMiami Valley Hospital on above:Order Comment: Specimen Type: BLOOD SPECIMENOrdering Facility: [facility] Address:[address] [place] [address] Performed By: #### 80720-3, 94956-3, HSTNT, 277-1 ####[facility] LABCLIA [id number] [address] STATES OF AMERICAAnion gap [Moles/Vol]13 mmol/LNormal8-15[facility] on above:Order Comment: Specimen Type: BLOOD SPECIMENOrdering Facility: [facility] Address:[address] [place], [place] [address]Performed By: #### 88842-1, 89638-2, HSTNT, 277-1 ####[facility] LABCLIA [id number] [place] [address] [place] AMERICAAST [Catalytic activity/Vol]25 U/BXetcbc91-68AtdfhydrrMiami Valley Hospital on above:Order Comment: Specimen Type: BLOOD SPECIMENOrdering Facility: [facility] Address:[address] [place], [place] [address]Result Comment: Results may be falsely increased due to interference from hemolysis. Suggest reorder as clinically indicated.Performed By: #### 29108-2, 19756-0, HSTNT, 277-1 ####[facility] LABCLIA [id number] [place] [address] [place] AMERICABilirubin [Mass/Vol]0.8 mg/dLNormal0.2-1.3CLancaster Municipal Hospital Comment on above:Order Comment: Specimen Type: BLOOD SPECIMENOrdering Facility: [facility] Address:[address] [place] [address] Performed By: #### 47971-6, 07410-2, HSTNT, 2777-1 ####[facility] LABCLIA [id number] [place] [address] [place] AMERICACalcium [Mass/Vol]9.5 mg/dLNormal8.5-10.2ClevelAtrium Health Wake Forest Baptist High Point Medical CenterComment on above:Order Comment: Specimen Type: BLOOD SPECIMENOrdering Facility: [facility] Address:[address] [place], [place] [address]Performed By: #### 93147-3, 51987-9, HSTNT, 2776-1 ####[facility] [id number] [place] [address] [place] AMERICAChloride [Moles/Vol]106 mmol/GVidsfd66-877NdmtcoqmzKettering Health Behavioral Medical CenterComment on above:Order Comment: Specimen Type: BLOOD SPECIMENOrdering Facility: [facility] Address:[address] [place], [place] [address]Performed By: #### 18940-0, 95771-3, HSTNT, 2776-1 ####[facility] LABCLIA [id number] [place] [address] [place] AMERICACO2 [Moles/Vol]24 mmol/LNormal 22-30[facility] Medical CenterComcorewell health butterworth hospital on above:Order Comment: Specimen Type: BLOOD SPECIMENOrdering Facility: [facility] Address:[address] [place], [place] [address]Performed By: #### 51212-8, 03330-2, HSTNT, 2777-1 ####[facility] LABCLIA [id number] [address] [address] [place] AMERICACreatinine [Mass/Vol]0.76 mg/dL Normal0.73-1.22[facility] on above:Order Comment: Specimen Type: BLOOD SPECIMENOrdering Facility: [facility] Address:[address] [place], [place] [address]Performed By: #### 75120-6, 97730-2, HSTNT, 2777-1 ####[facility] [id number] [address] [address] [place] AMERICACreatinine and Glomerular filtration rate.predicted panel (S/P/Bld)99 mL/min/1.73m???Normal>=60 [facility] on above:Order Comment: Specimen Type: BLOOD SPECIMENOrdering Facility: [facility] Address:[address] [place], [place] [address]Result Comment: Estimated Glomerular Filtration Rate (eGFR) is calculated using the 2020 CKD-EPI creatinine equation. This equation utilizes serum creatinine, sex, and age as parameters. The creatinine assay has traceable calibration to isotope dilution-mass spectrometry. Refer to KDIGO guidelines for clinical interpretation. In patients with unstable renal function, e.g. those with acute kidney injury, the eGFR may not accurately reflect actual GFR.Performed By: #### 69046-9, 59694-3, HSTNT, 277-1 ####[facility] [id number] [address] [address] [place] AMERICAGlucose [Mass/Vol]90 mg/dLNormal 74-99[facility] on above:Order Comment: Specimen Type: BLOOD SPECIMENOrdering Facility: [facility] Address:[address] [place], [place] [address]Result Comment: The [place] Diabetes Association (ADA) provides guidance for cutoff [...] Standards of Medical Care in Diabetes 2016, [place] Diabetes Association. Diabetes Care. 2016.39(Suppl 1).Performed By: #### 61789- 9, 96728-0, HSTNT, 2776-1 ####[facility] LABCLIA [id number] [address] [address] [place] Potassium [Moles/Vol]4.2 mmol/LNormal3.7-5.1CVeterans Health Administration on above:Order Comment: Specimen Type: BLOOD SPECIMENOrdering Facility: [facility] Address:[address] [place], [place] [address]Performed By: #### 97872-1, 79106-2, HSTNT, 2776- ####[facility] LABCLIA [id number] [place] [address] [place] Protein [Mass/Vol]6.1 g/dLLow6.3-8.0[facility] on above: Order Comment: Specimen Type: BLOOD SPECIMENOrdering Facility: [facility] Address:[address] [place], [place] [address]Performed By: #### 82166- 9, 61878-7, HSTNT, 2776- ####[facility] LABCLIA [id number] [place] [address] [place] AMERICASodium [Moles/Vol]143 mmol/NKkpygp501-880XhfwqzgbcMiami Valley Hospital on above: Order Comment: Specimen Type: BLOOD SPECIMENOrdering Facility: [facility] Address:[address] [place], [place] [address]Performed By: #### 80002- 9, 10505-1, HSTNT, 277-1 ####[facility] LABCLIA [id number] [address] [place] [address] [place] AMERICAUrea nitrogen [Mass/Vol]16 mg/dLNormal9-24[facility] on above: Order Comment: Specimen Type: BLOOD SPECIMENOrdering Facility: [facility] Address:[address] [place], [place] [address]Performed By: #### 74494- 9, 96101-3, HSTNT, 2777-1 ####[facility] LABCLIA [id number] [place] [address] [place] AMERICAECG COMPLETEon 07-71-2365RLZ COMPLETENormalCLancaster Municipal HospitalHIGH SENSITIVITY TROPONIN Ton 41-18-9199Xatashsy T.cardiac High sensitivity method [Mass/Vol]28 ng/LHigh<12[facility] on above:Order Comment: Specimen Type: BLOOD SPECIMENOrdering Facility: [facility] Address:[address] [place], [place] [address]Performed By: #### 43735- 9, 84318-2, HSTNT, 2777-1 ####[facility] LABCL[facility] [id number] [place] [address] [place] Magnesium SerPl-mCncon 48-85-9494Htssnweez [Mass/Vol]2.0 mg/dLNormal1.7-2.3 [facility] on above:Order Comment: Specimen Type: BLOOD SPECIMENOrdering Facility: [facility] Address:[address] [place], [place] [address]Performed By: #### 12524-4, 61480-8, HSTNT, 2777-1 ####[facility] [id number] [place] [address] [place] AMERICAPhosphate SerPl-mCncon 06-08-2024 Phosphate [Mass/Vol]3.3 mg/dLNormal2.7-4.8CVeterans Health Administration on above:Order Comment: Specimen Type: BLOOD SPECIMENOrdering Facility: [facility] Address:[address] [place], [place] [address]Performed By: #### 06991-0, 16658-0, HSTNT, 2777-1 ####[facility] LABCLIA [id number] [place] [address] [place] CASE MANAGEMon 30-81-5509BGIX MANAGEMNormalKettering Health Behavioral Medical CenterCB W Auto Differential panel (Bld)on 61-96-6258Rdgkcmgam (Bld) [#/Vol]0.06 10*3/uLNormal <0.11CLancaster Municipal HospitalComment on above:Order Comment: Specimen Type: BLOOD SPECIMENOrdering Facility: [facility] Address:[address] [place], [place] [address]Performed By: #### 47568-7 ####[facility] LABCL[facility] [id number] [place] [address] [place] AMERICABasophils/100 WBC (Bld)0.6 %NormalKettering Health Behavioral Medical Center Comment on above:Order Comment: Specimen Type: BLOOD SPECIMENOrdering Facility: [facility] Address:[address] [place] [address] Performed By: #### 11649-7 ####[facility] LABCLIA [id number] [address], [facility]95 [place] Differential cell count method Nom (Bld)AutoNormalClevelAtrium Health [facility] Comment on above:Order Comment: Specimen Type: BLOOD SPECIMENOrdering Facility: [facility] Address:[address] [place] [address] Performed By: #### 34120-4 ####[facility] LABCL[facility] [id number] [place] [id number] [place] Eosinophils (Bld) [#/Vol]0.32 10*3/uLNormal<0.46[facility] Comment on above:Order Comment: Specimen Type: BLOOD SPECIMENOrdering Facility: [facility] Address:[address] [place] [address] Performed By: #### 38566-5 ####[facility] [id number] [place] [address] [place] Eosinophils/100 WBC (Bld)3.2 %NormalMiami Valley Hospital on above: Order Comment: Specimen Type: BLOOD SPECIMENOrdering Facility: [facility] Address:[address] [place], [place] [address]Performed By: #### 18156- 8 ####[facility] [id number] [address], [place] [address] [place] AMERICAErythrocyte distribution width (RBC) [Ratio]13.0 %Nljdgr84.5-15.0[facility] on above: Order Comment: Specimen Type: BLOOD SPECIMENOrdering Facility: [facility] Address:[address] [place], [place] [address]Performed By: #### [id number]- [id number] ####[facility] [id number] [place] [address] [place] OF AMERICAHematocrit (Bld) [Volume fraction]37.7 %Low39.0-51.0[facility] on above:Order Comment: Specimen Type: BLOOD SPECIMENOrdering Facility: [facility] Address:[address] [place], [place] [address]Performed By: #### 00537- 8 ####[facility] [id number] [place] [address] [place] AMERICAHemoglobin (Bld) [Mass/Vol]12.4 g/dLLow13.0-17.0[facility] on above:Order Comment: Specimen Type: BLOOD SPECIMENOrdering Facility: [facility] Address:[address] [place], [place] [address]Performed By: #### 92396-7 ####[facility] [id number] [address] [place] [address] [place] AMERICAImmature granulocytes (Bld) [#/Vol]0.14 10*3/uLHigh<0.10[facility] on above:Order Comment: Specimen Type: BLOOD SPECIMENOrdering Facility: [facility] Address:[address] [place], [place] [address]Performed By: #### 27572- 8 ####[facility] [id number] [place] [address] [place] AMERICAImmature granulocytes/100 WBC (Bld)1.4 %NormalMiami Valley Hospital on above:Order Comment: Specimen Type: BLOOD SPECIMENOrdering Facility: [facility] Address:[address] [place], [place] [address]Performed By: #### 06424-9 ####[facility] [id number] [place] [address] [place] AMERICALymphocytes (Bld) [#/Vol]2.70 10*3/uLNormal1.00-4.00[facility] on above:Order Comment: Specimen Type: BLOOD SPECIMENOrdering Facility: [facility] Address:[address] [place], [place] [address]Performed By: #### 08568-0 ####[facility] [id number] [place] [address] [place] AMERICALymphocytes/100 WBC (Bld)26.8 % NormalMiami Valley Hospital on above:Order Comment: Specimen Type: BLOOD SPECIMENOrdering Facility: [facility] Address:[address] [place], [place] [address]Performed By: #### 15210-1 ####[facility] [id number] [place] [id number] [place] AMERICAMCH (RBC) [Entitic mass]31.1 acBhtyyr75.0-34.0[facility] on above:Order Comment: Specimen Type: BLOOD SPECIMENOrdering Facility: [facility] Address:[address] [place], [place] [address]Performed By: #### 51071-5 ####[facility] [id number] [place] [address] [place] MCHC (RBC) [Mass/Vol]32.9 g/qVWzaqco89.5-36.0[facility] on above:Order Comment: Specimen Type: BLOOD SPECIMENOrdering Facility: [facility] Address:[address] [place] [address] Performed By: #### 48878-7 ####[facility] [id number] [place] [address] [place] MCV (RBC) [Entitic vol]94.5 yBNsoyok02.0-100.0[facility] on above:Order Comment: Specimen Type: BLOOD SPECIMENOrdering Facility: [facility] Address:[address] [place] [address] Performed By: #### 72410-8 ####[facility] [id number] [place] [address] [place] Monocytes (Bld) [#/Vol]1.26 10*3/uLHigh<0.87[facility] on above:Order Comment: Specimen Type: BLOOD SPECIMENOrdering Facility: [facility] Address:[address] [place], [place] [address]Performed By: #### 12598-4 ####[facility] [id number] [place] [address] [place] AMERICAMonocytes/100 WBC (Bld)12.5 %NormalMiami Valley Hospital on above:Order Comment: Specimen Type: BLOOD SPECIMENOrdering Facility: [facility] Address:[address] [place], [place] [address]Performed By: #### 34944-8 ####[facility] LABCLIA [id number] [place] [address] [place] AMERICANeutrophils (Bld) [#/Vol]5.60 10*3/uLNormal1.45-7.50[facility] on above:Order Comment: Specimen Type: BLOOD SPECIMENOrdering Facility: [facility] Address:[address] [place], [place] [address]Performed By: #### 44568-1 ####[facility] [id number] [place] [address] [place] AMERICANeutrophils/100 WBC (Bld)55.5 % NormalKettering Health Behavioral Medical CenterComment on above:Order Comment: Specimen Type: BLOOD SPECIMENOrdering Facility: [facility] Address:[address] [place], [place] [address]Performed By: #### 98944-6 ####[facility] [id number] [place] [address] [place] AMERICANucleated RBC (Bld) [#/Vol]10*3/uLNormal<0.01[facility] on above:Order Comment: Specimen Type: BLOOD SPECIMENOrdering Facility: [facility] Address:[address] [place], [place] [address]Performed By: #### 26788-5 ####[facility] [id number] [place] [address] [place] Nucleated RBC/100 WBC (Bld) [Ratio]0.0 /100 WBCNormalCLancaster Municipal Hospital Comment on above:Order Comment: Specimen Type: BLOOD SPECIMENOrdering Facility: [facility] Address:[address] [place] [address] Performed By: #### 94986-0 ####[facility] [id number] [place] [address] [place] Platelet mean volume (Bld) [Entitic vol]10.2 fLNormal9.0-12.7[facility] ClevelandComment on above:Order Comment: Specimen Type: BLOOD SPECIMENOrdering Facility: [facility] Address:[address] [place], [place] [address]Performed By: #### 57796-1 ####[facility] LABCL[facility] [id number] [place] [id number] [place] Platelets (Bld) [#/Vol]290 10*3/kWTspphh793-750CeekdpjsqMiami Valley Hospital on above:Order Comment: Specimen Type: BLOOD SPECIMENOrdering Facility: [facility] Address:[address] [place] [address] Performed By: #### 53107-3 ####[facility] [id number] [place] [address] [place] RBC (Bld) [#/Vol]3.99 10*6/uLLow4.20-6.00[facility] on above:Order Comment: Specimen Type: BLOOD SPECIMENOrdering Facility: [facility] Address:[address] [place], [place] [address]Performed By: #### 31766-4 ####[facility] [id number] [address] STATES OF [facility] MEDICAL CENTERWBC (Bld) [#/Vol]10.08 10*3/uLNormal3.70-11.00[facility] on above:Order Comment: Specimen Type: BLOOD SPECIMENOrdering Facility: [facility] Address:[address] [place], [place] [address]Performed By: #### 02985- 8 ####[facility] [id number] [place] [id number] [place] AMERICAComprehensive metabolic 2000 panelon 92-86-1080Mlpuagv [Mass/Vol]3.9 g/dLNormal3.9-4.9CVeterans Health Administration on above:Order Comment: Specimen Type: BLOOD SPECIMENOrdering Facility: [facility] Address:[address] [place], [place] [address]Performed By: #### 10171-3, 2777-1, 38839-9, HSTNT ####[facility] LABCLIA [id number] [address] [address] [place] AMERICAALP [Catalytic activity/Vol]76 U/HLkwzig15-669EqbrtaklzMiami Valley Hospital on above:Order Comment: Specimen Type: BLOOD SPECIMENOrdering Facility: [facility] Address:[address] [place], [place] [address]Performed By: #### 55666-3, 2777-1, 12926-2, HSTNT ####[facility] LABCL[facility] [id number] [address] [address] [place] AMERICAALT [Catalytic activity/Vol]12 U/EXwbxhm11-94GviywjabkMiami Valley Hospital on above:Order Comment: Specimen Type: BLOOD SPECIMENOrdering Facility: [facility] Address:[address] [place], [place] [address]Performed By: #### 83756-1, 2777-1, 02630-2, HSTNT ####[facility]CLIA [id number] [address] [address] [place] AMERICAAnion gap [Moles/Vol]16 mmol/L High8-15[facility] on above:Order Comment: Specimen Type: BLOOD SPECIMENOrdering Facility: [facility] Address:[address] [place], [place] [address]Performed By: #### 66646-3, 277-1, 45804-6, HSTNT ####[facility]CL[facility] [id number] [address] [address] [place] AMERICAAST [Catalytic activity/Vol]24 U/TWbuxiv11-30JthjhyvlkMiami Valley Hospital on above:Order Comment: Specimen Type: BLOOD SPECIMENOrdering Facility: [facility] Address:[address] [place] [address]Lwgwpqgor By: #### 57680-7, 2777-1, 69030-2, HSTNT ####[facility] LABCL[facility] [id number] [place] [address] [place] AMERICABilirubin [Mass/Vol]1.0 mg/dL Normal0.2-1.3CVeterans Health Administration on above:Order Comment: Specimen Type: BLOOD SPECIMENOrdering Facility: [facility] Address:[address] [place], [place] [address]Performed By: #### 08877-2, 2777-1, 51745-6, HSTNT ####[facility]CL[facility] [id number] [place] [address] [place] AMERICACalcium [Mass/Vol]9.6 mg/dLNormal 8.5-10.2ClevelOur Lady of Mercy Hospital on above:Order Comment: Specimen Type: BLOOD SPECIMENOrdering Facility: [facility] Address:[address] [place], [place] [address]Performed By: #### 80070-1, 2777-1, 48082-2, HSTNT ####[facility]CL[facility] [id number] [place] [address] [place] AMERICAChloride [Moles/Vol]99 mmol/L Lftolm04-338TsoafpdfwMiami Valley Hospital on above:Order Comment: Specimen Type: BLOOD SPECIMENOrdering Facility: [facility] Address:[address] [place], [place] [address]Performed By: #### 17659-7, 2777-1, 72709-5, HSTNT ####[facility]CL[facility] [id number] [place] [id number] [place] AMERICACO2 [Moles/Vol]24 mmol/LNormal 22-30[facility] on above:Order Comment: Specimen Type: BLOOD SPECIMENOrdering Facility: [facility] Address:[address] [place], [place] [address]Performed By: #### 93167-5, 2777-1, 62083-6, HSTNT ####[facility] [id number] [address] [address] [place] AMERICACreatinine [Mass/Vol]1.04 mg/dL Normal0.73-1.22[facility] on above:Order Comment: Specimen Type: BLOOD SPECIMENOrdering Facility: [facility] Address:[address] [place], [place] [address]Performed By: #### 67917-6, 2777-1, 12313-4, HSTNT ####[facility] [id number] [address] [address] [place] AMERICACreatinine and Glomerular filtration rate.predicted panel (S/P/Bld)79 mL/min/1.73m???Normal>=60 [facility] on above:Order Comment: Specimen Type: BLOOD SPECIMENOrdering Facility: [facility] Address:[address] [place], [place] [address]Result Comment: Estimated Glomerular Filtration Rate (eGFR) is calculated using the 2020 CKD-EPI creatinine equation. This equation utilizes serum creatinine, sex, and age as parameters. The creatinine assay has traceable calibration to isotope dilution-mass spectrometry. Refer to KDIGO guidelines for clinical interpretation. In patients with unstable renal function, e.g. those with acute kidney injury, the eGFR may not accurately reflect actual GFR.Performed By: #### 48264-1, 277-1, 06308-3, HSTNT ####[facility] [id number] [address] [address] [place] AMERICAGlucose [Mass/Vol]110 mg/dLHigh 74-99[facility] on above:Order Comment: Specimen Type: BLOOD SPECIMENOrdering Facility: [facility] Address:[address] [place], [place] [address]Result Comment: The [place] Diabetes Association (ADA) provides guidance for cutoff [...] Standards of Medical Care in Diabetes 2016, [place] [employer]. Diabetes Care. 2016.39(Suppl 1).Performed By: #### 05310- 9, 2777-1, 06431-1, HSTNT ####[facility] [id number] [place] [address] [place] Potassium [Moles/Vol]3.9 mmol/LNormal3.7-5.1CVeterans Health Administration on above:Order Comment: Specimen Type: BLOOD SPECIMENOrdering Facility: [facility] Address:[address] [place], [place] [address]Performed By: #### 61892-5, 2777-, 71926-2, HSTNT ####[facility] [id number] [place] [address] [place] Protein [Mass/Vol]6.3 g/dLNormal6.3-8.0[facility] on above:Order Comment: Specimen Type: BLOOD SPECIMENOrdering Facility: [facility] Address:[address] [place], [place] [address]Performed By: #### 83507-6, 2777-, 39507-0, HSTNT ####[facility] [id number] [place] [address] [place] Sodium [Moles/Vol]139 mmol/OOqpjth041-374LrlemmmacMiami Valley Hospital on above:Order Comment: Specimen Type: BLOOD SPECIMENOrdering Facility: [facility] Address:[address] [place], [place] [address]Performed By: #### 07614-7, 2777-1, 10417-5, HSTNT ####[facility]CL[facility] [id number] [place] [address] [place] Urea nitrogen [Mass/Vol]17 mg/dLNormal9-24[facility] on above:Order Comment: Specimen Type: BLOOD SPECIMENOrdering Facility: [facility] Address:[address] [place], [place] [address]Performed By: #### 50752-7, 2777-1, 13900-6, HSTNT ####[facility] [id number] [place] [address] [place] ECG COMPLETEon 46-16-5465JTQ COMPLETENormalCLancaster Municipal HospitalHIGH SENSITIVITY TROPONIN Ton 79-19-7514Jbjqgmwu T.cardiac High sensitivity method [Mass/Vol]31 ng/LHigh<12[facility] on above:Order Comment: Specimen Type: BLOOD SPECIMENOrdering Facility: [facility] Address:[address] [place], [place] [address]Performed By: #### 57813- 9, 7-1, 29026-7, HSTNT ####[facility]CL[facility] [id number] [place] [id number] [place] AMERICAMEDICAL EMERon 72-63-4298NNLIOHO EMERNormalCLancaster Municipal HospitalMagnesium SerPl-mCncon 89-87-6795Uaspakxqa [Mass/Vol]1.9 mg/dLNormal1.7-2.3CVeterans Health Administration on above:Order Comment: Specimen Type: BLOOD SPECIMENOrdering Facility: [facility] Address:[address] [place], [place] [address]Performed By: #### 42822-9, 2777-1, 02884-7, HSTNT ####[facility]CL[facility] [id number] [address] AVENUEDES[address] STREETURSING PROGon 77-64-1428SVTZLUI PROGNormalKettering Health Behavioral Medical CenterNURSING PROGNormalKettering Health Behavioral Medical Center Phosphate SerPl-mCncon 68-05-2450Qawoojqxq [Mass/Vol]3.3 mg/dLNormal2.7-4.8 [facility] Medical CenterComcorewell health butterworth hospital on above:Order Comment: Specimen Type: BLOOD SPECIMENOrdering Facility: [facility] Address:[address] [place], [place] [address]Performed By: #### 65985-8, 2777-1, 47640-7, HSTNT ####[facility] [id number] [address] STATES OF [facility] MEDICAL CENTERARTERIAL BLOOD GASESon 06-06-2024 Base excess Calc (Bld) [Moles/Vol]4 mmol/LHigh0-2CLancaster Municipal Hospital Comment on above:Order Comment: Specimen Type: ARTERIAL BLOOD SPECIMENOrdering Facility: [facility]ITALAddress: [address] [place], [place] [address]Performed By: #### ALLBG ####[facility] [id number] [place] [address] [place] Body oxiswwjyxoq39.6 [degF]NormalMiami [facility] Hospital on above: Order Comment: Specimen Type: ARTERIAL BLOOD SPECIMENOrdering Facility: [facility]ITALAddress: [address] [place] [address] Performed By: #### ALLBG ####[facility]CL[facility] [id number] [place] [address] [place] Calcium.ionized (Bld) [Mass/Vol]1.23 mmol/LNormal1.08-1.30[facility] on above:Order Comment: Specimen Type: ARTERIAL BLOOD SPECIMENOrdering Facility: [facility]ITALAddress: [address] [place], [place] [address]Performed By: #### ALLBG ####[facility] [id number] [place] [address] [place] AMERICACalcium.ionized adjusted to pH 7.4 (BldA) [Moles/Vol]1.26 mmol/LNormal 1.08-1.30[facility] on above:Order Comment: Specimen Type: ARTERIAL BLOOD SPECIMENOrdering Facility: [facility] Address: [address] [place], [place] [address]Performed By: #### ALLBG ####[facility]CL[facility] [id number] [place] [address] [place] AMERICACarboxyhemoglobin (BldA) [Mass fraction]1.2 %Normal0.0-2.0[facility] on above:Order Comment: Specimen Type: ARTERIAL BLOOD SPECIMENOrdering Facility: [facility]ITALAddress: [address] [place], [place] [address]Result Comment: Carboxyhemoglobin Reference Range for Smokers: 2.0-8.0%Performed By: #### ALLBG ####[facility] [id number] [place] [address] [place] AMERICACO2 (Bld) [Partial pressure]39 mm JyEwzafb70-61FktiffhweMiami Valley Hospital on above:Order Comment: Specimen Type: ARTERIAL BLOOD SPECIMENOrdering Facility: [facility] Address: [address] [place], [place] [address]Performed By: #### ALLBG ####[facility]CL[facility] [id number] [place] [address] [place] AMERICAGlucose [Mass/Vol]116 mg/dLHigh 60-105[facility] on above:Order Comment: Specimen Type: ARTERIAL BLOOD SPECIMENOrdering Facility: [facility]ITALAddress: [address] [place], [place] [address]Performed By: #### ALLBG ####[facility] [id number] [place] [address] [place] AMERICAHCO3 (Bld) [Moles/Vol]27 mmol/AJccv79-25ScoqysbfwMiami Valley Hospital on above:Order Comment: Specimen Type: ARTERIAL BLOOD SPECIMENOrdering Facility: [facility]ITALAddress: [address] [id number] By: #### ALLBG ####[facility] [id number] [place] [id number] [place] AMERICAHematocrit (Bld) [Volume fraction]39.5 %Papdou63.0-51.0[facility] Hospitalment on above:Order Comment: Specimen Type: ARTERIAL BLOOD SPECIMENOrdering Facility: [facility]ITALAddress: [address] [place] [id number] By: #### ALLBG ####[facility] [id number] [place] [id number] [place] AMERICAHemoglobin (Bld) [Mass/Vol]12.9 g/dLLow13.0-17.0[facility] on above:Order Comment: Specimen Type: ARTERIAL BLOOD SPECIMENOrdering Facility: [facility]ITALAddress: [address] [place] [id number] By: #### ALLBG ####[facility] [id number] [place] [id number] [place] AMERICALactate [Moles/Vol]0.6 mmol/LNormal0.5-2.2CLancaster Municipal Hospital Comment on above:Order Comment: Specimen Type: ARTERIAL BLOOD SPECIMENOrdering Facility: [facility]ITALAddress: [address] [place] [id number] By: #### ALLBG ####[facility] [id number] [address] [address] [place] Methemoglobin (Bld) [Mass fraction]0.5 %Normal0.0-1.5ClevelAtrium Health Wake Forest [facility] Comment on above:Order Comment: Specimen Type: ARTERIAL BLOOD SPECIMENOrdering Facility: [facility]ITALAddress: [address] [place] [id number] By: #### ALLBG ####[facility]CLIA [id number] [address] [address] [place] O2 THERAPYRA=Room AirNormalCVeterans Health Administration on above:Order Comment: Specimen Type: ARTERIAL BLOOD SPECIMENOrdering Facility: [facility]ITALAddress: [address] [place], [place] [address]Performed By: #### ALLBG ####[facility]CL[facility] [id number] [address] [address] [place] AMERICAOxygen (Bld) [Partial pressure]74 mm VlLpe19-64EeqpqgmknMiami Valley Hospital on above:Order Comment: Specimen Type: ARTERIAL BLOOD SPECIMENOrdering Facility: [facility] Address: [address] [place], [place] [address]Performed By: #### ALLBG ####[facility]CLIA [id number] [address] [address] [place] [facility]'S MEDICAL CENTEROxyhemoglobin (BldA) [Mass fraction]94 %Tji17-28RhhhdknqmMiami Valley Hospital on above:Order Comment: Specimen Type: ARTERIAL BLOOD SPECIMENOrdering Facility: [facility]ITALAddress: [address] [place] [id number] By: #### ALLBG ####[facility] [id number] [facility] [address] [address] [place] AMERICApH (Bld)7.46 [pH]High7.35-7.45 [facility] on above:Order Comment: Specimen Type: ARTERIAL BLOOD SPECIMENOrdering Facility: [facility]ITALAddress: [address] [place] [id number] By: #### ALLBG ####[facility]CLIA [id number] [address] [address] [place] AMERICAPO2 / FIO2 EXWJC246 mmHgNormal>300[facility] on above:Order Comment: Specimen Type: ARTERIAL BLOOD SPECIMENOrdering Facility: [facility]ITALAddress: [address] [place], [place] [address]Performed By: #### ALLBG ####[facility] LABCL[facility] [id number] [address] [address] [place] AMERICAPotassium [Moles/Vol]3.8 mmol/LNormal3.5-5.0[facility] Comment on above:Order Comment: Specimen Type: ARTERIAL BLOOD SPECIMENOrdering Facility: [facility]ITALAddress: [address] [place], [place] [address]Performed By: #### ALLBG ####[facility] [id number] [place] [id number] [place] Sodium [Moles/Vol]137 mmol/ROrbnlk007-982WzmpkmneuMiami Valley Hospital on above:Order Comment: Specimen Type: ARTERIAL BLOOD SPECIMENOrdering Facility: [facility]ITALAddress: [address] [place] [id number] Performed By: #### ALLBG ####[facility] [id number] [address] [address] [place] AMERICABasic metabolic 2000 panelon 30-94-0572Sjwoo gap [Moles/Vol]11 mmol/LNormal8-15 [facility] on above:Order Comment: Specimen Type: BLOOD SPECIMENOrdering Facility: [facility] Address:[address] [place], [place] [address]Performed By: #### 12725-9, HSTNT ####[facility] [id number] [address] [address] [place] AMERICACalcium [Mass/Vol]9.8 mg/dLNormal8.5-10.2CVeterans Health Administration on above:Order Comment: Specimen Type: BLOOD SPECIMENOrdering Facility: [facility] Address:[address] [place], [place] [address]Performed By: #### 23560-1, HSTNT ####[facility]CL[facility] [id number] [address] [address] [place] Chloride [Moles/Vol]102 mmol/MHdknxy30-882BafemmbtuMiami Valley Hospital on above:Order Comment: Specimen Type: BLOOD SPECIMENOrdering Facility: [facility] Address:[address] [place], [place] [address]Performed By: #### 24934-1, HSTNT ####[facility] [id number] [place] [id number] [place] AMERICACO2 [Moles/Vol]27 mmol/FTurhlv84-26RzpbusnsiMiami Valley Hospital on above:Order Comment: Specimen Type: BLOOD SPECIMENOrdering Facility: [facility] Address:[address] [place], [place] [address]Performed By: #### 09444-8, HSTNT ####[facility] [id number] [place] [address] [place] AMERICACreatinine [Mass/Vol]1.00 mg/dL Normal0.73-1.22[facility] on above:Order Comment: Specimen Type: BLOOD SPECIMENOrdering Facility: [facility] Address:[address] [place], [place] [address]Performed By: #### 08362-1, HSTNT ####[facility] [id number] [address] OF AMERICACreatinine and Glomerular filtration rate.predicted panel (S/P/Bld)82 mL/min/1.73m???Normal>=60[facility] on above:Order Comment: Specimen Type: BLOOD SPECIMENOrdering Facility: [facility] Address:[address] [place], [place] [address]Result Comment: Estimated Glomerular Filtration Rate (eGFR) is calculated using the 2020 CKD-EPI creatinine equation. This equation utilizes serum creatinine, sex, and age as parameters. The creatinine assay has traceable calibration to isotope dilution-mass spectrometry. Refer to KDIGO guidelines for clinical interpretation. In patients with unstable renal function, e.g. those with acute kidney injury, the eGFR may not accurately reflect actual GFR.Performed By: #### 10011-3, HSTNT ####[facility] LABCLIA [id number] [address] [address] [place] OF AMERICAGlucose [Mass/Vol]94 mg/qBTcaxpj39-91NrkgunsxpKettering Health [facility] Comment on above:Order Comment: Specimen Type: BLOOD SPECIMENOrdering Facility: [facility] Address:[address] [id number] Comment: The [place] [employer] (ADA) provides guidance for cutoff [...] Standards of Medical Care in Diabetes 2016, [place] [employer]. Diabetes Care. 2016.39(Suppl 1).Performed By: #### 26523-4, HSTNT ####[facility] LABCLIA [id number] [address] [address] [place] OF AMERICAPotassium [Moles/Vol]4.3 mmol/LNormal3.7-5.1CLancaster Municipal HospitalComment on above:Order Comment: Specimen Type: BLOOD SPECIMENOrdering Facility: [facility] Address:[address], [place] [address]Ijiqfyqsd By: #### 56127-7, HSTNT ####[facility] LABCLIA [id number] [address] [address] [place] Sodium [Moles/Vol]140 mmol/FIvtham902-533BkigpnuarMiami Valley Hospital on above:Order Comment: Specimen Type: BLOOD SPECIMENOrdering Facility: [facility] Address:[address] [place], [place] [address]Performed By: #### 98064-5, HSTNT ####[facility] LABCLIA [id number] [address] [place] [facility] [place] OF AMERICAUrea nitrogen [Mass/Vol]16 mg/dLNormal9-24[facility] on above:Order Comment: Specimen Type: BLOOD SPECIMENOrdering Facility: [facility] Address:[address] [place], [place] [address]Performed By: #### 99153- 2, HSTNT ####[facility] LABCLIA [id number] [place] [address] [place] [facility] MEDICAL CENTERCBC panel Auto (Bld)on 05-53-5752Ydyplibkayx distribution width (RBC) [Ratio]13.0 %Vtigal87.5-15.0 [facility] on above:Order Comment: Specimen Type: BLOOD SPECIMENOrdering Facility: [facility] Address:[address] [place], [place] [address]Performed By: #### 24077-1 ####[facility] LABIA [id number] [place] [address] [place] [facility] [facility] [address] MEDICAL CENTERHematocrit (Bld) [Volume fraction]39.7 %Bdxsfa21.0-51.0[facility] on above:Order Comment: Specimen Type: BLOOD SPECIMENOrdering Facility: [facility] Address:[address] [place], [place] [address]Performed By: #### 51839-3 ####[facility] LABIA [id number] [place] [address] [place] Hemoglobin (Bld) [Mass/Vol]13.0 g/gEIzrwij55.0-17.0[facility] Comment on above:Order Comment: Specimen Type: BLOOD SPECIMENOrdering Facility: [facility] Address:[address] [place] [address] Performed By: #### 05312-2 ####[facility] LABIA [id number] [place] [address] [place] MCH (RBC) [Entitic mass]31.5 puNyytfc28.0-34.0[facility] on above:Order Comment: Specimen Type: BLOOD SPECIMENOrdering Facility: [facility] Address:[address] [place] [address] Performed By: #### 71209-7 ####[facility] LABIA [id number] [place] [address] [place] MCHC (RBC) [Mass/Vol]32.7 g/tYSbwkhx10.5-36.0[facility] on above:Order Comment: Specimen Type: BLOOD SPECIMENOrdering Facility: [facility] Address:[address] [place] [address] Performed By: #### 87751-5 ####[facility] LABIA [id number] [place] [address] [place] MCV (RBC) [Entitic vol]96.1 lURlthkm28.0-100.0[facility] on above:Order Comment: Specimen Type: BLOOD SPECIMENOrdering Facility: [facility] Address:[address] [place] [address] Performed By: #### 39578-8 ####[facility] LABIA [id number] [place] [address] [place] Nucleated RBC (Bld) [#/Vol]10*3/uLNormal<0.01[facility] on above:Order Comment: Specimen Type: BLOOD SPECIMENOrdering Facility: [facility] Address:[address] [place] [address] Performed By: #### 00678-0 ####[facility] LABIA [id number] [place] [address] [place] Platelet mean volume (Bld) [Entitic vol]10.4 fLNormal9.0-12.7CVeterans Health Administration on above:Order Comment: Specimen Type: BLOOD SPECIMENOrdering Facility: [facility] Address:[address] [place], [place] [address]Performed By: #### 53167-1 ####[facility] LABIA [id number] [place] [address] [place] Platelets (Bld) [#/Vol]320 10*3/oPJbvfle336-931DkwpyulloMiami Valley Hospital on above:Order Comment: Specimen Type: BLOOD SPECIMENOrdering Facility: [facility] Address:[address] [place] [address] Performed By: #### 68181-3 ####[facility] [id number] [place] [address] [place] RBC (Bld) [#/Vol]4.13 10*6/uLLow4.20-6.00[facility] on above:Order Comment: Specimen Type: BLOOD SPECIMENOrdering Facility: [facility] Address:[address] [place], [place] [address]Performed By: #### 14016-1 ####[facility] [id number] [place] [address] [place] AMERICAWBC (Bld) [#/Vol]9.89 10*3/uLNormal3.70-11.00[facility] on above:Order Comment: Specimen Type: BLOOD SPECIMENOrdering Facility: [facility] Address:[address] [place], [place] [address]Performed By: #### 64979-9 ####[facility] LABCENTR[facility] [id number] [place] [address] [place] AMERICAHIGH SENSITIVITY TROPONIN Ton 06-21-8197Ktvapjhr T.cardiac High sensitivity method [Mass/Vol]25 ng/LHigh<12 [facility] CenterComment on above:Order Comment: Specimen Type: BLOOD SPECIMENOrdering Facility: [facility] Address:[address] [place], [place] [address]Performed By: #### 53423-2, HSTNT ####[facility] LABCLIA [id number] [facility] [id number] STATES OF ITALIANURSMORTON HOSPITAL PROGon 95-25-1637UVPYELN PROGNormalUc [facility] Clecleveland clinic children[facility] for rehabilitationNURSING PROGNormalKettering Health Behavioral Medical CenterXR CERVICAL 2V AP/LATon 14-45-5818OU CERVICAL 2V AP/LATNormalCLancaster Municipal HospitalAPAP SerPl-mCncon 44-37-2259Criuksjpyttnf [Mass/Vol]ug/kYYvd26-36ZhhkstfngK[facility]tering Health [facility]al [facility] Center Comment on above:Order Comment: Specimen Type: BLOOD SPECIMENOrdering Facility: [facility] Address:[address] [place], [place] [address]Result Comment: Toxic > 150 ug/mL 4 hours post ingestionThe Anahi Terrell nomogram can be used to estimate the probability of hepatotoxicity via the relationship of plasma acetaminophen concentration to the post ingestion interval. (Greg. Pediatrics. 1975. 55:871 to 876 and Anahiet al. Arch Auto Motor Mechanic Med. 1981. 141:380 to 385).Reference ranges and high/low indicator flags are provided as general guidelines only. The treating physician must determine appropriate target levels/dosing based on the specific clinical situation.Performed By: #### 3298-7 ####[facility] LABCLIA [id number] [facility]BR[facility]KEPRROKSGHQ[facility] [address] [place] AMERICABasic metabolic 2000 panelon 05-40-5915Qamoe gap [Moles/Vol]9 mmol/LNormal8-15[facility] on above:Order Comment: Specimen Type: BLOOD SPECIMENOrdering Facility: [facility] Address:[address] [place], [place] [address]Performed By: #### 13897-2 ####[facility] LABCLIA [id number] [address] [address] [place] Calcium [Mass/Vol]9.4 mg/dLNormal8.5-10.2CVeterans Health Administration on above:Order Comment: Specimen Type: BLOOD SPECIMENOrdering Facility: [facility] Address:[address] [place], [place] [address]Performed By: #### 40347-2 ####[facility] LABCLIA [id number] [place] [id number] [place] AMERICAChloride [Moles/Vol] 106 mmol/WXxolex55-331XdpahdeyaMiami Valley Hospital on above:Order Comment: Specimen Type: BLOOD SPECIMENOrdering Facility: [facility] Address:[address] [place], [place] [address]Performed By: #### 58283-9 ####[facility] LABCLIA [id number] [place] [address] [place] AMERICACO2 [Moles/Vol]27 mmol/LNormal 22-30[facility] on above:Order Comment: Specimen Type: BLOOD SPECIMENOrdering Facility: [facility] Address:[address] [place], [place] [address]Performed By: #### 54987-4 ####[facility] LABCLIA [id number] [place] [id number] [place] AMERICACreatinine [Mass/Vol]1.07 mg/dLNormal0.73-1.22[facility] on above:Order Comment: Specimen Type: BLOOD SPECIMENOrdering Facility: [facility] Address:[address] [place], [place] [address]Performed By: #### 49149-1 ####[facility] LABCLIA [id number] [place] [id number] [place] Creatinine and Glomerular filtration rate.predicted panel (S/P/Bld)76 mL/min/1.73m???Normal>=60[facility] on above:Order Comment: Specimen Type: BLOOD SPECIMENOrdering Facility: [facility] Address:[address] [id number] Comment: Estimated Glomerular Filtration Rate (eGFR) is [...] not accurately reflect actual GFR.Performed By: #### 33330-9 ####[facility] LABCLIA [id number] [place] [id number] [place] AMERICAGlucose [Mass/Vol]98 mg/dLNormal 74-99[facility] on above:Order Comment: Specimen Type: BLOOD SPECIMENOrdering Facility: [facility] Address:[address] [place], [place] [address]Result Comment: The [place] Diabetes Association (ADA) provides guidance for cutoff [...] Standards of Medical Care in Diabetes 2016, [place] Diabetes Association. Diabetes Care. 2016.39(Suppl 1).Performed By: #### 38767-0 ####[facility] LABIA [id number] [place] [id number] [place] AMERICAPotassium [Moles/Vol]4.3 mmol/L Normal3.7-5.1CVeterans Health Administration on above:Order Comment: Specimen Type: BLOOD SPECIMENOrdering Facility: [facility] Address:[address] [place], [place] [address]Performed By: #### 49271-4 ####[facility] LABIA [id number] [place] [id number] [place] [facility] MEDICAL CENTERSodium [Moles/Vol]142 mmol/GAqtxex847-517QhmozcldhKettering Health Behavioral Medical CenterComcorewell health butterworth hospital on above:Order Comment: Specimen Type: BLOOD SPECIMENOrdering Facility: [facility] Address:[address] [place], [place] [address]Performed By: #### 40867-6 ####[facility] LABIA [id number] [place] [address] [place] AMERICAUrea nitrogen [Mass/Vol]12 mg/dLNormal9-24[facility] Comment on above:Order Comment: Specimen Type: BLOOD SPECIMENOrdering Facility: [facility] Address:[address] [place] [address] Performed By: #### 60362-5 ####[facility] LABIA [id number] [place] [address] [place] CBC panel Auto (Bld)on 79-97-8482Zikgnglgvuc distribution width (RBC) [Ratio] 13.5 %Ktjnfj77.5-15.0[facility] on above:Order Comment: Specimen Type: BLOOD SPECIMENOrdering Facility: [facility] Address:[address] [place], [place] [address]Performed By: #### 94746-4 ####[facility] LABIA [id number] [place] [id number] [place] AMERICAHematocrit (Bld) [Volume fraction]38.8 %Low39.0-51.0[facility] on above:Order Comment: Specimen Type: BLOOD SPECIMENOrdering Facility: [facility] Address:[address] [place], [place] [address]Performed By: #### 32003- 2 ####[facility] LABIA [id number] [address]ETHemoglobin (Bld) [Mass/Vol]12.2 g/dLLow13.0-17.0[facility] on above:Order Comment: Specimen Type: BLOOD SPECIMENOrdering Facility: [facility] Address:[address] [place], [place] [address]Performed By: #### 75496-7 ####[facility] LABIA [id number] [address] (RBC) [Entitic mass]31.1 pg Rrdvuw17.0-34.0[facility] on above:Order Comment: Specimen Type: BLOOD SPECIMENOrdering Facility: [facility] Address:[address] [place], [place] [address]Performed By: #### 44118-9 ####[facility] LABCENTR[facility] [id number] [address]HC (RBC) [Mass/Vol]31.4 g/dL Mdounr40.5-36.0[facility] on above:Order Comment: Specimen Type: BLOOD SPECIMENOrdering Facility: [facility] Address:[address] [place], [place] [address]Performed By: #### 00302-4 ####[facility] LABIA [id number] [address]V (RBC) [Entitic vol]99.0 fL Cxoxpl83.0-100.0[facility] on above:Order Comment: Specimen Type: BLOOD SPECIMENOrdering Facility: [facility] Address:[address] [place], [place] [address]Performed By: #### 72419-2 ####[facility] LABIA [id number] [address] RBC (Bld) [#/Vol] 10*3/uLNormal<0.01[facility] on above:Order Comment: Specimen Type: BLOOD SPECIMENOrdering Facility: [facility] Address:[address] [place], [place] [address]Performed By: #### 31999-5 ####[facility] LABCLIA [id number] [address] [address] [place] AMERICAPlatelet mean volume (Bld) [Entitic vol]10.2 fLNormal9.0-12.7CVeterans Health Administration on above: Order Comment: Specimen Type: BLOOD SPECIMENOrdering Facility: [facility] Address:[address] [place], [place] [address]Performed By: #### 47658- 2 ####[facility] LABCLIA [id number] [place] [address] [place] AMERICAPlatelets (Bld) [#/Vol]239 10*3/lDHvplaj209-558PjshiqoneMiami Valley Hospital on above:Order Comment: Specimen Type: BLOOD SPECIMENOrdering Facility: [facility] Address:[address] [place], [place] [address]Performed By: #### 16975-0 ####[facility] LABCLIA [id number] [place] [address] [place] AMERICARBC (Bld) [#/Vol]3.92 10*6/uLLow 4.20-6.00[facility] on above:Order Comment: Specimen Type: BLOOD SPECIMENOrdering Facility: [facility] Address:[address] [place], [place] [address]Performed By: #### 97533-1 ####[facility] LABCLIA [id number] [place] [id number] [place] AMERICAWBC (Bld) [#/Vol]10.60 10*3/uLNormal3.70-11.00[facility] on above:Order Comment: Specimen Type: BLOOD SPECIMENOrdering Facility: [facility] Address:[address] [place], [place] [address]Performed By: #### 62210-6 ####[facility] LABCLIA [id number] [place] [address] [place] AMERICAHepatic function 2000 panelon 36-40-1250Bdktcer [Mass/Vol]4.0 g/dLNormal 3.9-4.9CVeterans Health Administration on above:Order Comment: Specimen Type: BLOOD SPECIMENOrdering Facility: [facility] Address:[address] [place], [place] [address]Performed By: #### 20964-1 ####[facility] LABCLIA [id number] [place] [address] [place] AMERICAALP [Catalytic activity/Vol]62 U/JVulili64-980AyrzfbbzeMiami Valley Hospital on above:Order Comment: Specimen Type: BLOOD SPECIMENOrdering Facility: [facility] Address:[address] [place], [place] [address]Performed By: #### 78602-5 ####[facility] LABCLIA [id number] [place] [address] [place] ALT [Catalytic activity/Vol]9 U/OXjr98-85XyqagnoulMiami Valley Hospital on above:Order Comment: Specimen Type: BLOOD SPECIMENOrdering Facility: [facility] Address:[address] [place], [place] [address]Performed By: #### 34903-1 ####[facility] LABCLIA [id number] [place] [id number] [place] AMERICAAST [Catalytic activity/Vol]26 U/LIfktbu80-69ZxyknsvepMiami Valley Hospital on above:Order Comment: Specimen Type: BLOOD SPECIMENOrdering Facility: [facility] Address:[address] [place], [place] [address]Performed By: #### 88617- 3 ####[facility] LABCLIA [id number] [place] [id number] [place] AMERICABilirubin [Mass/Vol]0.5 mg/dL Normal0.2-1.3CVeterans Health Administration on above:Order Comment: Specimen Type: BLOOD SPECIMENOrdering Facility: [facility] Address:[address] [place], [place] [address]Performed By: #### 67865-0 ####[facility] LABCLIA [id number] [place] [address] [place] AMERICABilirubin.conjugated [Mass/Vol]0.2 mg/dLNormal<0.3 [facility] on above:Order Comment: Specimen Type: BLOOD SPECIMENOrdering Facility: [facility] Address:[address] [place], [place] [address]Performed By: #### 56377-5 ####[facility] LABCLIA [id number] [place] [address] [place] AMERICAProtein [Mass/Vol]6.0 g/dLLow6.3-8.0[facility] on above:Order Comment: Specimen Type: BLOOD SPECIMENOrdering Facility: [facility] Address:[address] [place], [place] [address]Performed By: #### 53210-7 ####[facility] LABCLIA [id number] [place] [address] [place] AMERICATHERAPY NTon 02-04-3022VLHPVHA NTNormalCregency hospital toledoand [facility]XR CERVICAL 2V AP/LATon 25-97-3961WO CERVICAL 2V AP/LATNormalCLancaster Municipal HospitalBasic metabolic 2000 panelon 46-06-7606Sxkrd gap [Moles/Vol]14 mmol/LNormal8-15[facility] on above:Order Comment: Specimen Type: BLOOD SPECIMENOrdering Facility: [facility] Address:[address] [place], [place] [address]Performed By: #### 08610-4 ####[facility] LABCLIA [id number] [address] [place] [address] [place] Calcium [Mass/Vol]9.5 mg/dLNormal8.5-10.2CVeterans Health Administration on above:Order Comment: Specimen Type: BLOOD SPECIMENOrdering Facility: [facility] Address:[address] [place], [place] [address]Performed By: #### 93217-3 ####[facility] LABCLIA [id number] [address] [place] [address] [place] AMERICAChloride [Moles/Vol] 103 mmol/LGjmgnf01-142WcnyboqxuMiami Valley Hospital on above:Order Comment: Specimen Type: BLOOD SPECIMENOrdering Facility: [facility] Address:[address] [place], [place] [address]Performed By: #### 34192-2 ####[facility] LABCLIA [id number] [place] [id number] [place] AMERICACO2 [Moles/Vol]23 mmol/LNormal 22-30[facility] on above:Order Comment: Specimen Type: BLOOD SPECIMENOrdering Facility: [facility] Address:[address] [place], [place] [address]Performed By: #### 11425-9 ####[facility] LABCLIA [id number] [address] [address] [place] AMERICACreatinine [Mass/Vol]0.88 mg/dLNormal0.73-1.22[facility] on above:Order Comment: Specimen Type: BLOOD SPECIMENOrdering Facility: [facility] Address:[address] [place], [place] [address]Performed By: #### 74618-7 ####[facility] LABCLIA [id number] [place] [id number] [place] Creatinine and Glomerular filtration rate.predicted panel (S/P/Bld)94 mL/min/1.73m???Normal>=60[facility] on above:Order Comment: Specimen Type: BLOOD SPECIMENOrdering Facility: [facility] Address:[address] [place], [place] [address]Result Comment: Estimated Glomerular Filtration Rate (eGFR) is [...] not accurately reflect actual GFR.Performed By: #### 28782-1 ####[facility] LABCLIA [id number] [place] [id number] [place] AMERICAGlucose [Mass/Vol]135 mg/dLHigh 74-99[facility] on above:Order Comment: Specimen Type: BLOOD SPECIMENOrdering Facility: [facility] Address:[address] [place], [place] [address]Result Comment: The [place] Diabetes Association (ADA) provides guidance for cutoff [...] Standards of Medical Care in Diabetes 2016, [place] Diabetes Association. Diabetes Care. 2016.39(Suppl 1).Performed By: #### 16852-0 ####[facility] LABIA [id number] [place] [id number] [place] AMERICAPotassium [Moles/Vol]4.2 mmol/L Normal3.7-5.1CVeterans Health Administration on above:Order Comment: Specimen Type: BLOOD SPECIMENOrdering Facility: [facility] Address:[address] [place], [place] [address]Performed By: #### 53411-8 ####[facility] LABCLIA [id number] [place] [address] [place] AMERICASodium [Moles/Vol]140 mmol/TIokcgg706-177WnaxmknvpMiami Valley Hospital on above:Order Comment: Specimen Type: BLOOD SPECIMENOrdering Facility: [facility] Address:[address] [place], [place] [address]Performed By: #### 32318-3 ####[facility] LABCLIA [id number] [place] [address] [place] AMERICAUrea nitrogen [Mass/Vol]15 mg/dLNormal9-24[facility] Comment on above:Order Comment: Specimen Type: BLOOD SPECIMENOrdering Facility: [facility] Address:[address] [place] [address] Performed By: #### 00085-1 ####[facility] LABIA [id number] [place] [address] [place] CASE MGT INIT ASSESon 93-04-0485MGPZ MGT INIT [facility] panel Auto (Bld)on 47-34-3476Zxxodcemekf distribution width (RBC) [Ratio]13.0 %Ijxlud81.5-15.0[facility] on above:Order Comment: Specimen Type: BLOOD SPECIMENOrdering Facility: [facility] Address:[address] [place], [place] [address]Performed By: #### 40359- 2 ####[facility] LABIA [id number] [place] [id number] [place] AMERICAHematocrit (Bld) [Volume fraction]37.5 %Low39.0-51.0[facility] on above:Order Comment: Specimen Type: BLOOD SPECIMENOrdering Facility: [facility] Address:[address] [place], [place] [address]Performed By: #### 50873- 2 ####[facility] LABIA [id number] [address]ETHemoglobin (Bld) [Mass/Vol]12.4 g/dLLow13.0-17.0[facility] on above:Order Comment: Specimen Type: BLOOD SPECIMENOrdering Facility: [facility] Address:[address] [place], [place] [address]Performed By: #### 63126-6 ####[facility] LABIA [id number] [address] (RBC) [Entitic mass]31.2 pg Cvjmmp49.0-34.0[facility] on above:Order Comment: Specimen Type: BLOOD SPECIMENOrdering Facility: [facility] Address:[address] [place], [place] [address]Performed By: #### 63758-8 ####[facility] [id number] [address]HC (RBC) [Mass/Vol]33.1 g/dL Nbahll23.5-36.0[facility] on above:Order Comment: Specimen Type: BLOOD SPECIMENOrdering Facility: [facility] Address:[address] [place], [place] [address]Performed By: #### 81719-8 ####[facility] LABCENTR[facility] [id number] [address]ETV (RBC) [Entitic vol]94.5 fL Novgpe57.0-100.0[facility] on above:Order Comment: Specimen Type: BLOOD SPECIMENOrdering Facility: [facility] Address:[address] [place], [place] [address]Performed By: #### 09886-3 ####[facility]ABCENTR[facility] [id number] [address]ucleated RBC (Bld) [#/Vol] 10*3/uLNormal<0.01[facility] on above:Order Comment: Specimen Type: BLOOD SPECIMENOrdering Facility: [facility] Address:[address] [place], [place] [address]Performed By: #### 72429-4 ####[facility] LABCLIA [id number] [place] [address] [place] AMERICAPlatelet mean volume (Bld) [Entitic vol]10.4 fLNormal9.0-12.7CVeterans Health Administration on above: Order Comment: Specimen Type: BLOOD SPECIMENOrdering Facility: [facility] Address:[address] [place], [place] [address]Performed By: #### 21780- 2 ####[facility] LABCLIA [id number] [place] [address] [place] AMERICAPlatelets (Bld) [#/Vol]266 10*3/nVVmyllu647-226XoeacjiibMiami Valley Hospital on above:Order Comment: Specimen Type: BLOOD SPECIMENOrdering Facility: [facility] Address:[address] [place], [place] [address]Performed By: #### 20944-3 ####[facility] LABCLIA [id number] [place] [address] [place] AMERICARBC (Bld) [#/Vol]3.97 10*6/uLLow 4.20-6.00[facility] on above:Order Comment: Specimen Type: BLOOD SPECIMENOrdering Facility: [facility] Address:[address] [place], [place] [address]Performed By: #### 47907-6 ####[facility] LABCLIA [id number] [place] [id number] [place] AMERICAWBC (Bld) [#/Vol]13.37 10*3/uLHigh3.70-11.00[facility] on above:Order Comment: Specimen Type: BLOOD SPECIMENOrdering Facility: [facility] Address:[address] [place], [place] [address]Performed By: #### [id number] ####[facility] LABCLIA [id number] YAYA PAYNE [id number] [place] [address] [place] AMERICATHERAPY NTon [id number] NTNormalCregency hospital toledoand [facility], [facility] HospitalANES POSTPROC EVALon [id number] POSTPROC EVALNormalCregency hospital toledoand [facility], [facility] HospitalANES PRE-OPon [id number] PRE-OPNormalKettering Health Behavioral Medical CenterBRIEF OP NOTon [id number] OP NOTNormalCLancaster Municipal HospitalOPERATIVE NOon 06-02-2024 OPERATIVE NONormalKettering Health Behavioral Medical CenterXR CERVICAL SPECIFY 1Von 06-02-2024 XR CERVICAL SPECIFY 1VNormalCLancaster Municipal HospitalXR VERIFY LEVEL C-SPINE-NB on [id number] VERIFY LEVEL Y-DHPDN-MBWbrecvYzsjfeqch Clinic ClevelandCT Cervical spine WO contraston [id number]: Developmental cervical canal stenosis with superimposed degenerative changes that are most prominent at C5-6 where there is severe cord compression. Multilevel bony foraminal narrowing as detailed above. Anatomic Variant: None. Assume 7 cervical vertebrae with counting from the craniocervical junction. [facility] Transcribe Date/Time: May 16 2024 7:44A Dictated by : DOMENIC FORD MD This examination was interpreted and the report reviewed and electronically signed by: DOMENIC FORD MD on May 16 2024 7:54AM [facility] RADIOLOGY SYNGO* * *Final Report* * * DATE OF EXAM: May 14 2024 9:37AM [facility] 0505 - CT CERVICAL SPINE [...] Counting reference: Craniocervical junction. Anatomic Variants: None. Public Information Relations Manager (topogram) images: No additional findings. Alignment: There [...] degenerative changes cause mild bilateral foraminal stenosis. [place] RADIOLOG[facility] SYNGOProvider, [facility] Shafer - 05/16/2024 * * *Final Report* * * DATE OF EXAM: May 14 2024 9:37AM [facility] 0505 - CT CERVICAL SPINE WO IVCON / PROCEDURE REASON: Spinal stenosis of cervical region * * * * Physician Interpretation * * * * EXAMINATION: CT CERVICAL SPINE WO DORA CLINICAL HISTORY: Intermittent hand numbness, reduced manually [...] Counting reference: Craniocervical junction. Anatomic Variants: None. Public Information Relations Manager (topogram) images: No additional findings. Alignment: There [...] vertebrae with counting from the craniocervical junction. [facility] Transcribe Date/Time: May 16 2024 7:44A Dictated by : DOMENIC FORD MD This examination was interpreted and the report reviewed and electronically signed by: DOMENIC FORD MD on May 16 2024 7:54AM EST [facility] Cervical spine WO contrastOrdered By: Ccf Provider on 03-96-7088Krapsatli ClinicCT CERVICAL SPINE WO IVCONon [id number] CERVICAL SPINE WO IVCON* * *Final Report* * * DATE OF EXAM: May 14 2024 9:37AM [facility] 0505 - CT CERVICAL SPINE [...] Counting reference: Craniocervical junction. Anatomic Variants: None. Public Information Relations Manager (topogram) images: No additional findings. Alignment: There [...] vertebrae with counting from the craniocervical junction. [facility] Transcribe Date/Time: May 16 2024 7:44A Dictated by : DOMENIC FORD MD This examination was interpreted and the report reviewed and electronically signed by: DOMENIC FORD MD on May 16 2024 7:54AM EST [id number]_IDCSIACNNNorthern Light Sebasticook Valley HospitalCT Cervical spine WO contraston 38-85-6669Hmyihgwfr Study observation (narrative)[facility] Basic metabolic 2000 panelon 19-32-1554Brqai gap [Moles/Vol]11 mmol/L8 - 15 mmol/LCleveland ClinicCalcium [Mass/Vol]9.8 mg/dL8.5 - 10.2 mg/dLSelect Medical Specialty Hospital - Cincinnati Northveland ClinicChloride [Moles/Vol]99 mmol/L98 - 107 mmol/LCleveland ClinicCO2 [Moles/Vol]28 mmol/L22 - 30 mmol/LCleveland ClinicCreatinine [Mass/Vol]0.91 mg/dL0.73 - 1.22 mg/dLUc West Chester HospitalGFR/1.73 sq M.predicted among non-blacks MDRD (S/P/Bld) [Vol rate/Area]92 mL/min/{1.73_m2}- PINFCMount St. Mary Hospital on above:Estimated Glomerular Filtration Rate (eGFR) is calculated using the 2020 CKD-EPI creatinine equation. This equation utilizes serum creatinine, sex, and age as parameters. The creatinine assay has traceable calibration to isotope dilution-mass spectrometry. Refer to KDIGO guidelines for clinical inte rpretation. In patients with unstable renal function, e.g. those with acute kidney injury, the eGFRmay not accurately reflect actual GFR.Glucose [Mass/Vol] 120 mg/aOIsha95 - 99 mg/dLSamaritan North Health Center on above:The [place] Diabetes Association (ADA) provides guidance for cutoff [...] Standards of Medical Care in Diabetes 2016, [place] Diabetes Association. Diabetes Care. 2016.39(Suppl 1). Interpretation and review of laboratory resultsAbnormalCleveland ClinicPotassium [Moles/Vol]4.4 mmol/L3.7 - 5.1 mmol/LCleveland ClinicSodium [Moles/Vol]138 mmol/L136 - 144 mmol/LCleveland ClinicUrea nitrogen [Mass/Vol]23 mg/dL9 - 24 mg/dLGrand Lake Joint Township District Memorial HospitalAnion gap [Moles/Vol]11 mmol/LNormal8-15 [facility] on above:Order Comment: Specimen Type: BLOOD SPECIMENOrdering Facility: [facility] Address:[address] [place], [place] [address]Performed By: #### 81281-6, 18755-3, 2275-06 ####[facility] LABCLIA [id number] [address] [address] [place] OF AMERICACalcium [Mass/Vol]9.8 mg/dLNormal8.5-10.2CVeterans Health Administration on above:Order Comment: Specimen Type: BLOOD SPECIMENOrdering Facility: [facility] Address:[address] [place], [place] [address]Performed By: #### 82282-0, 38617-3, 2275-06 ####[facility] LABCLIA [id number] [address] [place] OF AMERICAChloride [Moles/Vol]99 mmol/WKystkg88-863QmmwiirmrMiami Valley Hospital on above:Order Comment: Specimen Type: BLOOD SPECIMENOrdering Facility: [facility] Address:[address] [place], [place] [address]Performed By: #### 07155-7, 72889-7, 2275-06 ####[facility] LABCLIA [id number] VILLE [address] [place] AMERICACO2 [Moles/Vol]28 mmol/AXmgxgu16-21IxglvibefMiami Valley Hospital on above:Order Comment: Specimen Type: BLOOD SPECIMENOrdering Facility: [facility] Address:[address] [place], [place] [address]Performed By: #### 12348-5, 74308-2, 2275-06 ####[facility] LABCLIA [id number] [address] [place] AMERICACreatinine [Mass/Vol]0.91 mg/dLNormal0.73-1.22 [facility] on above:Order Comment: Specimen Type: BLOOD SPECIMENOrdering Facility: [facility] Address:[address] [place], [place] [address]Performed By: #### 92986-2, 37710-5, 2275-06 ####[facility] LABCLIA [id number], [place] [address] [place] AMERICACreatinine and Glomerular filtration rate.predicted panel (S/P/Bld)92 mL/min/1.73m???Normal>=60[facility] on above:Order Comment: Specimen Type: BLOOD SPECIMENOrdering Facility: [facility] Address:[address] [place], [place] [address]Result Comment: Estimated Glomerular Filtration Rate (eGFR) is [...] accurately reflect actual GFR. Performed By: #### 89267-7, 86514-3, 6-4 ####[facility] [id number], [place] [address] [place] AMERICAGlucose [Mass/Vol]120 mg/sVMhjy43-51CafrfgbzfMiami Valley Hospital on above:Order Comment: Specimen Type: BLOOD SPECIMENOrdering Facility: [facility] Address:[address] [place], [place] [address]Result Comment: The [place] Diabetes Association (ADA) provides guidance for cutoff [...] Standards of Medical Care in Diabetes 2016, [place] Diabetes Association. Diabetes Care. 2016.39(Suppl 1).Performed By: #### 31576-5, 18550-7, 2276-4 ####[facility] LABIA [id number], [place] [address] [place] AMERICAPotassium [Moles/Vol]4.4 mmol/LNormal3.7-5.1 [facility] on above:Order Comment: Specimen Type: BLOOD SPECIMENOrdering Facility: [facility] Address:[address] [place], [place] [address]Performed By: #### 99506-5, 91063-8, 6-4 ####[facility] LABIA [id number] STATES OF [facility] MEDICAL CENTERSodium [Moles/Vol]138 mmol/ROxzefr199-249KpukkdhifMiami Valley Hospital on above:Order Comment: Specimen Type: BLOOD SPECIMENOrdering Facility: [facility] Address:[address] [place], [place] [address]Performed By: #### 45051-2, 91439-1, 2275-4 ####[facility] LABIA [id number] VILLE [id number] [place] STATES OF AMERICAUrea nitrogen [Mass/Vol]23 mg/dLNormal9-24 [facility] on above:Order Comment: Specimen Type: BLOOD SPECIMENOrdering Facility: [facility] Address:[address] [place], [place] [address]Performed By: #### 01810-3, 18201-1, 2275-4 ####[facility] CAMPUSIA [id number] VILLE [id number] UNITED [facility] OF [facility] MEDICAL CENTERCB W Auto Differential panel (Bld)on 05-12-2024 Basophils (Bld) [#/Vol]0.03 10*3/uLNormal<0.11CVeterans Health Administration on above:Order Comment: Specimen Type: BLOOD SPECIMENOrdering Facility: [facility] Address:[address] [place] [address] Performed By: #### 64892-3 ####[facility] LABIA [id number] [place] [id number] [place] Basophils/100 WBC (Bld)0.3 %NormalMiami Valley Hospital on above: Order Comment: Specimen Type: BLOOD SPECIMENOrdering Facility: [facility] Address:[address] [place], [place] [address]Performed By: #### 78216- 8 ####[facility] LABCLIA [id number] [place] [address] [place] AMERICADifferential cell count method Nom (Bld)AutoNormalCVeterans Health Administration on above:Order Comment: Specimen Type: BLOOD SPECIMENOrdering Facility: [facility] Address:[address] [place], [place] [address]Performed By: #### 11670-5 ####[facility] LABCLIA [id number] [place] [address] [place] AMERICAEosinophils (Bld) [#/Vol]10*3/uL Normal<0.46[facility] on above:Order Comment: Specimen Type: BLOOD SPECIMENOrdering Facility: [facility] Address:[address] [place], [place] [address]Performed By: #### 88531-0 ####[facility] LABCLIA [id number] [address] STATES OF [facility] MED[facility] CENTEREosinophils/100 WBC (Bld)0.1 %NormalMiami Valley Hospital on above:Order Comment: Specimen Type: BLOOD SPECIMENOrdering Facility: [facility] Address:[address] [place], [place] [address]Performed By: #### 34746-7 ####[facility] LABIA [id number] [place] [address] [place] Erythrocyte distribution width (RBC) [Ratio]12.4 %Bqqrpl13.5-15.0[facility] on above:Order Comment: Specimen Type: BLOOD SPECIMENOrdering Facility: [facility] Address:[address] [place], [place] [address]Performed By: #### 76175-5 ####[facility] LABIA [id number] [place] [address] [place] AMERICAHematocrit (Bld) [Volume fraction]45.6 %Hjxsvz92.0-51.0[facility] on above:Order Comment: Specimen Type: BLOOD SPECIMENOrdering Facility: [facility] Address:[address] [place], [place] [address]Performed By: #### 48828-6 ####[facility] LABIA [id number] [place] [address] [place] Hemoglobin (Bld) [Mass/Vol]14.9 g/lEKvywas98.0-17.0[facility] Comment on above:Order Comment: Specimen Type: BLOOD SPECIMENOrdering Facility: [facility] Address:[address] [place] [address] Performed By: #### 71068-6 ####[facility] LABIA [id number] [place] [address] [place] Immature granulocytes (Bld) [#/Vol]0.11 10*3/uLHigh<0.10[facility] on above:Order Comment: Specimen Type: BLOOD SPECIMENOrdering Facility: [facility] Address:[address] [place], [place] [address]Performed By: #### 01432-8 ####[facility] LABIA [id number] [place] [address] [place] Immature granulocytes/100 WBC (Bld)1.3 %NormalMiami Valley Hospital on above:Order Comment: Specimen Type: BLOOD SPECIMENOrdering Facility: [facility] Address:[address] [place] [address] Performed By: #### 03155-0 ####[facility] LABIA [id number] [place] [address] [place] Lymphocytes (Bld) [#/Vol]0.83 10*3/uLLow1.00-4.00[facility] Comment on above:Order Comment: Specimen Type: BLOOD SPECIMENOrdering Facility: [facility] Address:[address] [place] [address] Performed By: #### 96618-7 ####[facility] LABIA [id number] [place] [address] [place] Lymphocytes/100 WBC (Bld)9.5 %NormalMiami Valley Hospital on above: Order Comment: Specimen Type: BLOOD SPECIMENOrdering Facility: [facility] Address:[address] [place], [place] [address]Performed By: #### 34513- 8 ####[facility] LABIA [id number] [address] (RBC) [Entitic mass]31.0 pg Yhbxif91.0-34.0[facility] Hospitalment on above:Order Comment: Specimen Type: BLOOD SPECIMENOrdering Facility: [facility] Address:[address] [place], [place] [address]Performed By: #### 61707-1 ####[facility] LABIA [id number] [address]ETMCHC (RBC) [Mass/Vol]32.7 g/dL Oomgus58.5-36.0[facility] on above:Order Comment: Specimen Type: BLOOD SPECIMENOrdering Facility: [facility] Address:[address] [place], [place] [address]Performed By: #### 61151-0 ####[facility] LABIA [id number] [address]REETV (RBC) [Entitic vol]94.8 fL Ocuqfm89.0-100.0[facility] on above:Order Comment: Specimen Type: BLOOD SPECIMENOrdering Facility: [facility] Address:[address] [place], [place] [address]Performed By: #### 52761-8 ####[facility] LABCLIA [id number] [place] [address] [place] AMERICAMonocytes (Bld) [#/Vol]0.26 10*3/uLNormal<0.87[facility] on above:Order Comment: Specimen Type: BLOOD SPECIMENOrdering Facility: [facility] Address:[address] [place], [place] [address]Performed By: #### 68923-4 ####[facility] LABCLIA [id number] [place] [address] [place] AMERICAMonocytes/100 WBC (Bld)3.0 % NormalMiami Valley Hospital on above:Order Comment: Specimen Type: BLOOD SPECIMENOrdering Facility: [facility] Address:[address] [place], [place] [address]Performed By: #### 41538-8 ####[facility] LABIA [id number] [place] [address] [place] AMERICANeutrophils (Bld) [#/Vol]7.47 10*3/uLNormal1.45-7.50[facility] on above:Order Comment: Specimen Type: BLOOD SPECIMENOrdering Facility: [facility] Address:[address] [place], [place] [address]Performed By: #### 00800-7 ####[facility] LABCLIA [id number] [place] [address] [place] AMERICANeutrophils/100 WBC (Bld)85.8 %NormalMiami Valley Hospital on above:Order Comment: Specimen Type: BLOOD SPECIMENOrdering Facility: [facility] Address:[address] [place] [address] Performed By: #### 34022-6 ####[facility] LABCLIA [id number] [place] [id number] [place] Nucleated RBC (Bld) [#/Vol]10*3/uLNormal<0.01[facility] on above:Order Comment: Specimen Type: BLOOD SPECIMENOrdering Facility: [facility] Address:[address] [place] [address] Performed By: #### 20262-6 ####[facility] LABIA [id number] [place] [address] [place] Nucleated RBC/100 WBC (Bld) [Ratio]0.0 /100 WBCNormalCLancaster Municipal Hospital Comment on above:Order Comment: Specimen Type: BLOOD SPECIMENOrdering Facility: [facility] Address:[address] [place] [address] Performed By: #### 94576-3 ####[facility] LABIA [id number] [place] [address] [place] Platelet mean volume (Bld) [Entitic vol]10.0 fLNormal9.0-12.7CVeterans Health Administration on above:Order Comment: Specimen Type: BLOOD SPECIMENOrdering Facility: [facility] Address:[address] [place], [place] [address]Performed By: #### 14275-2 ####[facility] LABIA [id number] [place] [address] [place] Platelets (Bld) [#/Vol]394 10*3/jNDqftyp060-101QyazszufrMiami Valley Hospital on above:Order Comment: Specimen Type: BLOOD SPECIMENOrdering Facility: [facility] Address:[address] [place] [address] Performed By: #### 35318-5 ####[facility] LABIA [id number] [place] [address] [place] RBC (Bld) [#/Vol]4.81 10*6/uLNormal4.20-6.00[facility] on above:Order Comment: Specimen Type: BLOOD SPECIMENOrdering Facility: [facility] Address:[address] [place], [place] [address]Performed By: #### 46417-4 ####[facility] LABCLIA [id number] [place] [address] [place] [facility] [address] MEDICAL CENTERWBC (Bld) [#/Vol]8.71 10*3/uLNormal3.70-11.00[facility] on above:Order Comment: Specimen Type: BLOOD SPECIMENOrdering Facility: [facility] Address:[address] [place], [place] [address]Performed By: #### 96719-9 ####[facility] LABCLIA [id number] [place] [address] [place] AMERICACNOVon 54-10-0756LRYQReqmmj [facility] Medical CenterFerritin SerPl-mCncon 32-68-0316Bxbwwamg [Mass/Vol] 204.0 ng/uKQjnjyf41.3-565.7CVeterans Health Administration on above:Order Comment: Specimen Type: BLOOD SPECIMENOrdering Facility: [facility] Address:[address] [place], [place] [address]Performed By: #### 20230- 8, 27565-9, 2275-4 ####[facility] LABCLIA [id number] [address] [place] AMERICAHISTORY PHYSICALon 74-51-9643QBRASDQ PHYSICALNormalCLancaster Municipal HospitalIron and Iron binding capacity panelon 56-51-2501Oofc [Mass/Vol]81 ug/fDHcxsjt51-714XtbtjajymMiami Valley Hospital on above:Order Comment: Specimen Type: BLOOD SPECIMENOrdering Facility: [facility] Address:[address] [place], [place] [address]Performed By: #### 49869-8, 69888-5, 6-4 ####[facility] LABCLIA [id number] AVENUEDESK [place], [place] [address] [place] AMERICAIron binding capacity [Mass/Vol]342 ug/tOMyyllv754-115DtzhqrxifMiami Valley Hospital on above:Order Comment: Specimen Type: BLOOD SPECIMENOrdering Facility: [facility] Address:[address] [place], [place] [address]Performed By: #### 96118-2, 92058-8, 2276-4 ####[facility] LABCLIA [id number] STATES OF AMERICAIron/TIBC [Molar ratio]23.7 %Cunkrm41.0-57.0 [facility] on above:Order Comment: Specimen Type: BLOOD SPECIMENOrdering Facility: [facility] Address:[address] [place], [place] [address]Performed By: #### 37453-9, 55575-4, 6-4 ####[facility] LABCLIA [id number] STATES OF [facility] MEDICAL CENTERSTAPHYLOCOCCUS AUREUS AND MRSA SCREEN, PCR, NASAL on 05-12-2024S. aureus and MRSA panel BARBARA+probe (Nose)Not detectedNormalNot DetectedMiami Valley Hospital on above:Order Comment: Specimen Type: SWABOrdering Facility: [facility] Address: [address] [place], [place] [address]Performed By: #### SAPCR ####[facility] LABCLIA [id number] [place] [address] [place] AMERICATYPE AND SCREEN,30 DAYon 36-42-2287QSO group Nom (Bld)OCSt. Mary's Medical Center Blood group antibody screen QlNegativeMercy Health St. Rita's Medical Center Nom (Bld)Negative [facility] HospitalABOONormalMi[facility] on above:Order Comment: Specimen Type: BLOOD SPECIMENOrdering Facility: [facility] Address:[address] [place], [place] [address]Performed By: #### [id number] ####[facility] BLOOD BANKCLIA [id number] [place] [address] [place] AMERICARh Nom (Bld)NegativeNormal [facility] Medical CenterComment on above:Order Comment: Specimen Type: BLOOD SPECIMENOrdering Facility: [facility] Address:[address] [place], [place] [address]Performed By: #### TSCR30 ####CC [facility] BLOOD BANKCLIA [id number] [address]MR Cervical spine WO contraston 07-73-8447DRUDWKDHCV: Advanced multilevel degenerative canal stenoses, most pronounced [...] ALFONSO LOYD on 02/21/2024 5:11 PM via [employer] staff message. [facility] SprucelingAdonis Transcribe Date/Time: Feb 21 2024 4:44P Dictated by : KEVIN MASON MD This examination was interpreted and the report reviewed and electronically signed by: KEVIN MASON MD on Feb 21 2024 8:57PM [facility] DIVISION OF RADIOLOGY* * *Final [...] facet hypertrophy DIVISION OF RADIOLOGYProvider, [facility] Imaging Shafer - 02/21/2024 * * *Final Report* * [...] ALFONSO LOYD on 02/21/2024 5:11 PM via [employer] staff message. [facility] Transcribe Date/Time: Feb 21 2024 4:44P Dictated by : KEVIN MASON MD This examination was interpreted and the report reviewed and electronically signed by: KEVIN MASON MD on Feb 21 2024 8:57PM [facility] HospitalRadiology Study observation (narrative)[facility] HospitalMR Cervical spine WO contrastOrdered By: Ccf Provider on 44-95-8297Adsjdjqrt Clinic MRI CERVICAL SPINE WO IVCONon 48-20-2822COZ CERVICAL SPINE WO IVCONNormal [facility] CenterCNPNon 16-80-5582TCSSSgnpssEmxumvycp [facility] CNOVon 35-29-8718VGRZGfsizrLperampht Clinic Clecleveland clinic children's hospital for rehabilitationCT LUMBAR SPINE WO IVCONon 06-50-5586UK LUMBAR SPINE WO IVCONNormalKettering Health Behavioral Medical CenterCT Lumbar spine WO contraston 89-87-3075WYAQQSSJPW: Interval L4-5 right facetectomy. Stable additional prior postoperative changes as described. Healing fracture along L5 pedicle screws. 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 Anatomic Lumbar Variant: Transitional L5 vertebral body. L4-5 is considered the level of the iliac crest and there are 5 lumbar-type vertebrae. [facility] Transcribe Date/Time: Jan 13 2024 9:06A Dictated by : MORGAN SANCHEZ MD This examination was interpreted and the report reviewed and electronically signed by: ADALBERTO MAYS MD on Jan 13 2024 11:37AM [facility] DIVISION OF RADIOLOGY* * *Final Report* * * DATE OF EXAM: Jan 13 2024 8:57AM [facility] [place] LUMBAR SPINE WO IVCON [...] vertebrae. Anatomic variant: Transitional L5 vertebral body. Public Information Relations Manager (topogram) images: No additional findings. Alignment: There [...] are within normal limits. DIVISION OF RADIOLOGYProvider, [facility]fer - 01/13/2024 * * *Final Report* * * DATE OF EXAM: Jan 13 2024 8:57AM [facility] [place] LUMBAR SPINE WO IVCON [...] vertebrae. Anatomic variant: Transitional L5 vertebral body. Public Information Relations Manager (topogram) images: No additional findings. Alignment: There [...] crest and there are 5 lumbar-type vertebrae. [facility] Transcribe Date/Time: Jan 13 2024 9:06A Dictated by : MORGAN SANCHEZ MD This examination was interpreted and the report reviewed and electronically signed by: ADALBERTO MAYS MD on Jan 13 2024 11:37AM [facility] Lumbar spine WO contrastOrdered By: Ccf Provider on 94-96-3783Vsgzwmvtz ClinicEMG(NEURO/NI)on 96-84-0477Txjnvxg can be seen in attached scanned documents. If you are a patient reviewing this test result, call the doctor who ordered the test with any questions. [facility] Lumbar spine WO contraston 01-13-2024* * *Final [...] are normal in appearance. DIVISION OF RADIOLOGYProvider, [facility] Imaging Shafer - 01/13/2024 * * *Final Report* * [...] obtained if clinically judy (more content not included)...[facility] HospitalRadiology Study observation (narrative)[facility] Thoracic spine WO contraston 01-13-2024* * *Final [...] are normal in appearance. DIVISION OF RADIOLOGYProvider, [facility] Imaging Shafer - 01/13/2024 * * *Final Report* * [...] obtained if clinically a (more content not included)...[facility] LUMBAR SPINE WO IVCONon 22-79-9004IXT LUMBAR SPINE WO IVCONInvalid Interpretation CodeMorrow County Hospital THORACIC SPINE WO IVCONon 14-82-4804ZTW THORACIC SPINE WO IVCON Invalid Interpretation CodeRiverview Health Institute Panel InformationOrdered By: Ccf Provider on 34-31-3305Ciqwgtqvvcylqv and review of laboratory results AbnormalUc West Chester HospitalRadiology ResultACTIONABLEAbnormalCSt. Mary's Medical Center Comment on above:This report contains an incidental [...] contact your provider for the next steps. [facility] Panel Informationon 97-32-1700CTUIJVBIHW: * Susceptibility artifacts from posterior fusion hardware [...] be communicated with the ordering provider via Epic staff message or phone message by Imaging Support Services within 2 business days of report finalization. --END OF FINDING-- ACTIONABLE RESULT: FOLLOW-UP Acuity: Actionable Findings: Neurological System-SPINE Routing Code: NI_2 Recommendation: Unlisted Recommendation (see report) Time Frame: At the discretion of the clinical team. COMMUNICATION: Results will be communicated with the ordering provider via Epic staff message or phone message by Imaging Support Services within 2 business days of report finalization. --END OF FINDING-- [facility] Transcribe Date/Time: Jan 13 2024 8:57A Dictated by : TWAN SANTO MD This examination was interpreted and the report reviewed and electronically signed by: TWAN SANTO MD on Jan 13 2024 3:52PM [facility] DIVISION OF RADIOLOGYRadiology Study observation (narrative)[facility] HospitalCNPN on 87-79-5450USUQJrbkfxEpfvnorjs Clinic ClevelandLon 55-72-3158KAjpmplad: BS24- 790 Received: 11/27/23 Status: CASANDRA Thurman Num: [id number] Spec Type: Surgical Subm Dr: Camryn Agustin MD FACS Tissues: A Colon Biopsy (CECAL COLON POLYP) Procedures: HE/2, Gross/Micro L4 Age/ Patient Sex Location Account Attending Physician Braden Rodriguez 68/M LABELL [id number] Camryn Agustin MD FACS SPEC NUM: [id number] RECD: 11/27/23 STATUS: CASANDRA THURMAN NUM: [id number] KIM: 11/26/[address]: Camryn Agustin MD FACS ENTERED: 11/27/[address] [facility] [address]: [facility] SPEC TYPE: Surgical DEPT: ANI MCWILLIAMS ENTERED BY: [id number] RECV BY: [id number] ORDERED: HE/2, Gross/Micro L4 ORDERED: HE/2, Gross/Micro [...] cassette A1. CPT Codes 88 305 Specimen: [id number] Received: 11/27/23 Status: CASANDRA Jeanine Num: [id number] Spec Type: Surgical Subm Dr: Camryn Agustin MD FACS Tissues: A Colon Biopsy (CECAL COLON POLYP) Procedures: HE/Paulino, Gross/Micro L4 Patient: Braden Rodriguez [id number] (Continued) Signed (signature on file) Edward Byers MD 12/02/23 1557[facility] Physician GroupCNOVon 35-16-3776XCFLUouazuHsmtzbabu Clinic ClevelandXR LUMBAR 2V AP/LATon 88-89-7674NS LUMBAR 2V AP/LATNormal [facility] CenterXR Lumbar spine AP and Lateralon 62-79-7234UMQRZLHUPO: Intact spinal fusion hardware. Vertebral body heights and sagittal alignment are maintained. [facility] Transcribe Date/Time: Nov 12 2023 1:25P Dictated by : LONNIE HERNANDEZ MD This examination was interpreted and the report reviewed and electronically signed by: LONNIE HERNANDEZ MD on Nov 12 2023 1:25PM [facility] DIVISION OF RADIOLOGY* * *Final [...] 09/10/2023. RESULT: See impression DIVISION OF RADIOLOGYProvider, [facility] - 11/12/2023 * * *Final Report* * [...] body heights and sagittal alignment are maintained. [facility]: [employer] Transcribe Date/Time: Nov 12 2023 1:25P Dictated by : LONNIE HERNANDEZ MD This examination was interpreted and the report reviewed and electronically signed by: LONNIE HERNANDEZ MD on Nov 12 2023 1:25PM EST [facility] HospitalRadiology Study observation (narrative)[facility] Lumbar spine AP and LateralOrdered By: Ccf Provider on 86-07-5060Nprvxzlnb ClinicCNPNon 54-28-3890EMROTwkdkuUymbtftov Clinic ClevelandCNPNon 23-78-9181GQMZRjsmsu [facility] Medical CenterCNCOon 69-28-4341FERJPolxzx TextNormalCSt. [facility] metabolic 2000 panelon 86-79-3690Wrjyi gap [Moles/Vol]10 mmol/L Normal8-15[facility] on above:Order Comment: Specimen Type: BLOOD SPECIMENOrdering Facility: [facility] Address:[address] [place], [place] [address]Performed By: #### 51371-2 ####[facility] LABCLIA [id number] [place] [address] [place] AMERICACalcium [Mass/Vol]9.4 mg/dLNormal8.5-10.2CVeterans Health Administration on above:Order Comment: Specimen Type: BLOOD SPECIMENOrdering Facility: [facility] Address:[address] [place], [place] [address]Performed By: #### 60710-4 ####[facility] LABCLIA [id number] [address] [address] [place] OF AMERICAChloride [Moles/Vol]104 mmol/PMfawgh39-093TooecsoqsKettering Health Behavioral Medical Center Comment on above:Order Comment: Specimen Type: BLOOD SPECIMENOrdering Facility: [facility] Address:[address] [place] [address] Performed By: #### 15411-4 ####[facility] LABCLIA [id number] [address] [address] [place] CO2 [Moles/Vol]27 mmol/FRepsjt19-62MssavmaovMiami Valley Hospital on above: Order Comment: Specimen Type: BLOOD SPECIMENOrdering Facility: [facility] Address:[address] [place], [place] [address]Performed By: #### 09636- 2 ####[facility] LABIA [id number] [place] [address] [place] AMERICACreatinine [Mass/Vol]0.83 mg/dL Normal0.73-1.22[facility] on above:Order Comment: Specimen Type: BLOOD SPECIMENOrdering Facility: [facility] Address:[address] [place], [place] [address]Performed By: #### 94592-3 ####[facility] LABIA [id number] [place] [address] [place] AMERICACreatinine and Glomerular filtration rate.predicted panel (S/P/Bld)97 mL/min/1.73m???Normal>=60[facility] on above:Order Comment: Specimen Type: BLOOD SPECIMENOrdering Facility: [facility] Address:[address] [place], [place] [address]Result Comment: Estimated Glomerular Filtration Rate (eGFR) is calculated using the 2020 CKD-EPI creatinine equation. This equation utilizes serum creatinine, sex, and age as parameters. The creatinine assay has traceable calibration to isotope dilution-mass spectrometry. Refer to KDIGO guidelines for clinical interpretation. In patients with unstable renal function, e.g. those with acute kidney injury, the eGFR may not accurately reflect actual GFR.Performed By: #### 95870-8 ####[facility] LABIA [id number] [place] [address] [place] AMERICAGlucose [Mass/Vol]100 mg/eIEgav66-09HckqevupoMiami Valley Hospital on above:Order Comment: Specimen Type: BLOOD SPECIMENOrdering Facility: [facility] Address:[address] [place], [place] [address]Result Comment: The [place] Diabetes Association (ADA) provides guidance for cutoff [...] Standards of Medical Care in Diabetes 2016, [place] Diabetes Association. Diabetes Care. 2016.39(Suppl 1).Performed By: #### 19838-9 ####[facility] LABCLIA [id number] [place] [address] [place] [facility] MEDICAL CENTERPotassium [Moles/Vol]3.9 mmol/LNormal3.7-5.1CLancaster Municipal Hospital Comment on above:Order Comment: Specimen Type: BLOOD SPECIMENOrdering Facility: [facility] Address:[address] [place] [address] Performed By: #### 64214-8 ####[facility] LABIA [id number] [address] [place] Sodium [Moles/Vol]141 mmol/RPeamdk914-940OxomqdkmqMiami Valley Hospital on above:Order Comment: Specimen Type: BLOOD SPECIMENOrdering Facility: [facility] Address:[address] [place], [place] [address]Performed By: #### 67829-2 ####[facility] LABIA [id number] [address] STATES OF [facility]S MEDICAL CENTERUrea nitrogen [Mass/Vol]15 mg/dLNormal9-24McC[facility] Memorial Hospitalment on above:Order Comment: Specimen Type: BLOOD SPECIMENOrdering Facility: [facility] Address:[address] [place], [place] [address]Performed By: #### 77559- 2 ####[facility] LABIA [id number] [place] [address] [place] [facility] MEDICAL CENTERCBC panel Auto (Bld)on 10-04-2023 Erythrocyte distribution width (RBC) [Ratio]12.4 %Wrdodp28.5-15.0[facility] on above:Order Comment: Specimen Type: BLOOD SPECIMENOrdering Facility: [facility] Address:[address] [place], [place] [address]Performed By: #### 83961-0 ####[facility] LABIA [id number] [place] [address] [place] AMERICAHematocrit (Bld) [Volume fraction]37.6 %Low39.0-51.0[facility] on above:Order Comment: Specimen Type: BLOOD SPECIMENOrdering Facility: [facility] Address:[address] [place], [place] [address]Performed By: #### 65718-2 ####[facility] LABIA [id number] [place] [address] [place] Hemoglobin (Bld) [Mass/Vol]12.1 g/dLLow13.0-17.0[facility] Comment on above:Order Comment: Specimen Type: BLOOD SPECIMENOrdering Facility: [facility] Address:[address] [place] [address] Performed By: #### 70292-1 ####[facility] LABIA [id number] [place] [address] [place] MCH (RBC) [Entitic mass]32.5 zaWdtwac49.0-34.0[facility] on above:Order Comment: Specimen Type: BLOOD SPECIMENOrdering Facility: [facility] Address:[address] [place] [address] Performed By: #### 94063-3 ####[facility] LABIA [id number] [place] [address] [place] MCHC (RBC) [Mass/Vol]32.2 g/mTLeaujw06.5-36.0[facility] on above:Order Comment: Specimen Type: BLOOD SPECIMENOrdering Facility: [facility] Address:[address] [place] [address] Performed By: #### 76935-4 ####[facility] LABIA [id number] [place] [address] [place] MCV (RBC) [Entitic vol]101.1 hXOatz22.0-100.0[facility] on above:Order Comment: Specimen Type: BLOOD SPECIMENOrdering Facility: [facility] Address:[address] [place] [address] Performed By: #### 22458-4 ####[facility] LABIA [id number] [place] [address] [place] Nucleated RBC (Bld) [#/Vol]10*3/uLNormal<0.01[facility] on above:Order Comment: Specimen Type: BLOOD SPECIMENOrdering Facility: [facility] Address:[address] [place] [address] Performed By: #### 22064-0 ####[facility]USIA [id number] [place] [address] [place] Platelet mean volume (Bld) [Entitic vol]10.1 fLNormal9.0-12.7CVeterans Health Administration on above:Order Comment: Specimen Type: BLOOD SPECIMENOrdering Facility: [facility] Address:[address] [place], [place] [address]Performed By: #### 41731-3 ####[facility] LABIA [id number] [place] [address] [place] Platelets (Bld) [#/Vol]352 10*3/oKLlypqw366-023WegdpxamuMiami Valley Hospital on above:Order Comment: Specimen Type: BLOOD SPECIMENOrdering Facility: [facility] Address:[address] [place] [address] Performed By: #### 64709-9 ####[facility] LABIA [id number] [place] [address] [place] RBC (Bld) [#/Vol]3.72 10*6/uLLow4.20-6.00[facility] on above:Order Comment: Specimen Type: BLOOD SPECIMENOrdering Facility: [facility] Address:[address] [place], [place] [address]Performed By: #### 28774-0 ####[facility] LABCLIA [id number] [place] [address] [place] AMERICAWBC (Bld) [#/Vol]10.84 10*3/uLNormal3.70-11.00[facility] on above:Order Comment: Specimen Type: BLOOD SPECIMENOrdering Facility: [facility] Address:[address] [place], [place] [address]Performed By: #### 33118- 2 ####[facility] LABCLIA [id number] [place] [address] [place] AMERICATHERAPY NTon 41-48-7240FJKOJIR NT NormalKettering Health Behavioral Medical CenterBabourbon community hospital metabolic 2000 panelon 34-36-7612Rcsny gap [Moles/Vol]10 mmol/LNormal8-15[facility] on above:Order Comment: Specimen Type: BLOOD SPECIMENOrdering Facility: [facility] Address:[address] [place], [place] [address]Performed By: #### 49535- 2 ####[facility] LABIA [id number] [place] [address] [place] AMERICACalcium [Mass/Vol]9.0 mg/dLNormal 8.5-10.2CVeterans Health Administration on above:Order Comment: Specimen Type: BLOOD SPECIMENOrdering Facility: [facility] Address:[address] [place], [place] [address]Performed By: #### 61092-3 ####[facility] LABCLIA [id number] [place] [address] [place] AMERICAChloride [Moles/Vol]105 mmol/PYottrw28-603XoiyxjkhkMiami Valley Hospital on above:Order Comment: Specimen Type: BLOOD SPECIMENOrdering Facility: [facility] Address:[address] [place], [place] [address]Performed By: #### 84071-9 ####[facility] LABCLIA [id number] [place] [address] [place] AMERICACO2 [Moles/Vol]23 mmol/FOmnzix25-25XmirkntzkMiami Valley Hospital on above:Order Comment: Specimen Type: BLOOD SPECIMENOrdering Facility: [facility] Address:[address] [place], [place] [address]Performed By: #### 28505-5 ####[facility] LABIA [id number] [place] [address] [place] AMERICACreatinine [Mass/Vol] 0.92 mg/dLNormal0.73-1.22[facility] on above:Order Comment: Specimen Type: BLOOD SPECIMENOrdering Facility: [facility] Address:[address] [place], [place] [address]Performed By: #### 72429- 2 ####[facility] LABIA [id number] [place] [address] [place] AMERICACreatinine and Glomerular filtration rate.predicted panel (S/P/Bld)92 mL/min/1.73m???Normal>=60[facility] on above:Order Comment: Specimen Type: BLOOD SPECIMENOrdering Facility: [facility] Address:[address] [place], [place] [address]Result Comment: Estimated Glomerular Filtration Rate (eGFR) is calculated using the 2020 CKD-EPI creatinine equation. This equation utilizes serum creatinine, sex, and age as parameters. The creatinine assay has traceable calibration to isotope dilution-mass spectrometry. Refer to KDIGO guidelines for clinical interpretation. In patients with unstable renal function, e.g. those with acute kidney injury, the eGFR may not accurately reflect actual GFR.Performed By: #### 48987-6 ####[facility] LABIA [id number] [place] [address] [place] AMERICAGlucose [Mass/Vol]121 mg/lIVhdx73-17WwujmquoxKettering Health Behavioral Medical CenterComment on above:Order Comment: Specimen Type: BLOOD SPECIMENOrdering Facility: [facility] Address:[address] [place], [place] [address]Result Comment: The [place] Diabetes Association (ADA) provides guidance for cutoff [...] Standards of Medical Care in Diabetes 2016, [place] Diabetes Association. Diabetes Care. 2016.39(Suppl 1).Performed By: #### 53946-4 ####[facility] LABIA [id number] [place] [address] [place] AMERICAPotassium [Moles/Vol]4.0 mmol/LNormal3.7-5.1CLancaster Municipal Hospital Comment on above:Order Comment: Specimen Type: BLOOD SPECIMENOrdering Facility: [facility] Address:[address] [place] [address] Performed By: #### 41302-5 ####[facility] LABIA [id number] [place] [address] [place] Sodium [Moles/Vol]138 mmol/MZkskrp181-750JpoijuwlpKettering Health Behavioral Medical CenterComment on above:Order Comment: Specimen Type: BLOOD SPECIMENOrdering Facility: [facility] Address:[address] [place], [place] [address]Performed By: #### 00519-6 ####[facility] CAMPUSIA [id number] [place] [address] [place] AMERICAUrea nitrogen [Mass/Vol]21 mg/dLNormal9-24[facility] on above:Order Comment: Specimen Type: BLOOD SPECIMENOrdering Facility: [facility] Address:[address] [place], [place] [address]Performed By: #### 65996- 2 ####[facility] LABCLIA [id number] [place] [address] [place] AMERICACASE MGT INIT ASSESon 10-03-2023 CASE MGT INIT [facility] panel Auto (Bld)on 74-47-8928Lwuhzboxthc distribution width (RBC) [Ratio]11.9 %Egpunx66.5-15.0 [facility] Medical CenterComment on above:Order Comment: Specimen Type: BLOOD SPECIMENOrdering Facility: [facility] Address:[address] [place], [place] [address]Performed By: #### 73862-2 ####[facility] LABCLIA [id number] [address] STATES OF [facility]S MEDICAL CENTERHematocrit (Bld) [Volume fraction]35.0 %Low39.0-51.0[facility] on above:Order Comment: Specimen Type: BLOOD SPECIMENOrdering Facility: [facility] Address:[address] [place], [place] [address]Performed By: #### 23136-0 ####[facility] LABCLIA [id number] [place] [address] [place] Hemoglobin (Bld) [Mass/Vol]11.5 g/dLLow13.0-17.0[facility] Comment on above:Order Comment: Specimen Type: BLOOD SPECIMENOrdering Facility: [facility] Address:[address] [place] [address] Performed By: #### 28329-8 ####[facility] LABCLIA [id number] [place] [address] [place] MCH (RBC) [Entitic mass]32.0 wxKhuxel31.0-34.0[facility] on above:Order Comment: Specimen Type: BLOOD SPECIMENOrdering Facility: [facility] Address:[address] [place] [address] Performed By: #### 73993-4 ####[facility] LABCLIA [id number] [place] [address] [place] MCHC (RBC) [Mass/Vol]32.9 g/vBXnfddm95.5-36.0[facility] on above:Order Comment: Specimen Type: BLOOD SPECIMENOrdering Facility: [facility] Address:[address] [place] [address] Performed By: #### 83413-5 ####[facility] LABIA [id number] [place] [address] [place] MCV (RBC) [Entitic vol]97.5 pAAxgdfn95.0-100.0[facility] on above:Order Comment: Specimen Type: BLOOD SPECIMENOrdering Facility: [facility] Address:[address] [place] [address] Performed By: #### 83103-0 ####[facility] LABIA [id number] [place] [address] [place] Nucleated RBC (Bld) [#/Vol]10*3/uLNormal<0.01[facility] on above:Order Comment: Specimen Type: BLOOD SPECIMENOrdering Facility: [facility] Address:[address] [place] [address] Performed By: #### 39101-4 ####[facility] LABIA [id number] [place] [address] [place] Platelet mean volume (Bld) [Entitic vol]10.4 fLNormal9.0-12.7CVeterans Health Administration on above:Order Comment: Specimen Type: BLOOD SPECIMENOrdering Facility: [facility] Address:[address] [place], [place] [address]Performed By: #### 95012-6 ####[facility] LABCLIA [id number] [place] [id number] [place] Platelets (Bld) [#/Vol]354 10*3/uISjynsk065-693WpfpruantKettering Health Behavioral Medical CenterComcorewell health butterworth hospital on above:Order Comment: Specimen Type: BLOOD SPECIMENOrdering Facility: [facility] Address:[address] [place] [address] Performed By: #### 02708-0 ####[facility] LABCLIA [id number] [place] [address] [place] RBC (Bld) [#/Vol]3.59 10*6/uLLow4.20-6.00[facility] Medical CenterComment on above:Order Comment: Specimen Type: BLOOD SPECIMENOrdering Facility: [facility] Address:[address] [place], [place] [address]Performed By: #### 71557-4 ####[facility] LABCLIA [id number] [place] [address] [place] AMERICAWBC (Bld) [#/Vol]11.20 10*3/uLHigh3.70-11.00[facility] on above:Order Comment: Specimen Type: BLOOD SPECIMENOrdering Facility: [facility] Address:[address] [place], [place] [address]Performed By: #### 99323-5 ####[facility] LABCLIA [id number] [place] [address] [place] AMERICACNDSon 82-38-3646JJFGNgwztz [facility] Medical CenterTHERAPY NTon 77-91-8679UMQMCMB NTNormalCleveland [facility], [facility] HospitalTHERAPY NTNormalCleveland [facility], [facility] HospitalANES POSTPROC EVALon 09-59-0831FHBA POSTPROC EVALNormalCleveland [facility], [facility] HospitalANES PRE-OPon 77-55-4694LUHL PRE-OPNormalKettering Health Behavioral Medical CenterBRIEF OP NOTon 10-02-2023 BRIEF OP NOTNormalCLancaster Municipal HospitalOPERATIVE NOon 88-50-3338PVXGNWWWN NONormalKettering Health Behavioral Medical CenterTYPE + SCREENon 61-24-9552ODXRJapsrhWnpavncva Clinic ClevelandComment on above:Order Comment: Specimen Type: BLOOD SPECIMENOrdering Facility: [facility] Address:[address] [place], [place] [address]Performed By: #### TSCR ####[facility] MAIN BLOOD BANKCLIA [id number] [place] [address] [place] AMERICAHISTORICAL AB SCR STATUSNegativeNoLutheran Hospital on above:Order Comment: Specimen Type: BLOOD SPECIMENOrdering Facility: [facility] Address:[address] [place] [address] Performed By: #### TSCR ####CC MAIN BLOOD BANKCLIA [id number] [place] [address] [place] AMERICARh Nom (Bld)Negative NormalMiami Valley Hospital on above:Order Comment: Specimen Type: BLOOD SPECIMENOrdering Facility: [facility] Address:[address] [place], [place] [address]Performed By: #### TSCR ####[facility] MAIN BLOOD BANKCLIA [id number] [place] [address] [place] AMERICATYPE AND SCREEN CHMCEZJRIU48/28/2024 23:59NormalCVeterans Health Administration on above:Order Comment: Specimen Type: BLOOD SPECIMENOrdering Facility: [facility] Address:[address] [place], [place] [address]Performed By: #### TSCR ####CC MAIN BLOOD BANKCLIA [id number] [place] [id number] [place] AMERICAXR LUMBAR SPECIFY 1Von 00-51-0126EF LUMBAR SPECIFY 1VNormalCLancaster Municipal HospitalCNNURSEon 97-63-4852KHGHQHTWplktxFatknpuvo Clinic ClevelandCNPNon 65-14-1876OMHYGhvecu [facility] Medical CenterCNPNon 76-92-7112RNHSHyvgqxQesrwgzqq [facility] [place] CNPNon 90-21-3837WPHYCnqehhFooyenkrr Clinic ClevelandCNCOon 78-89-2349IHAJBbrtgb TextNormalCLancaster Municipal HospitalALLIED HEALTHon 76-71-2988SSOTRJ HEALTH NormalKettering Health Behavioral Medical CenterBasic metabolic 2000 panelon 17-84-4170Qdiny gap [Moles/Vol]10 mmol/LNormal8-15[facility] on above:Order Comment: Specimen Type: BLOOD SPECIMENOrdering Facility: [facility] Address:[address] [place], [place] [address]Performed By: #### 47557- 2 ####[facility] LABCLIA [id number] [place] [address] [place] AMERICACalcium [Mass/Vol]9.6 mg/dLNormal 8.5-10.2CVeterans Health Administration on above:Order Comment: Specimen Type: BLOOD SPECIMENOrdering Facility: [facility] Address:[address] [place], [place] [address]Performed By: #### 84299-8 ####[facility] LABCLIA [id number] [address] [address] [place] AMERICAChloride [Moles/Vol]102 mmol/DZzsrkt95-870YgapgnvmjMiami Valley Hospital on above:Order Comment: Specimen Type: BLOOD SPECIMENOrdering Facility: [facility] Address:[address] [place] [id number] By: #### 07418-1 ####[facility] LABCLIA [id number] [address] [address] [place] AMERICACO2 [Moles/Vol]27 mmol/PYtxpoq54-42OpjgaworyMiami Valley Hospital on above:Order Comment: Specimen Type: BLOOD SPECIMENOrdering Facility: [facility] Address:[address] [place], [place] [address]Performed By: #### 23517-8 ####[facility] LABIA [id number] [place] [address] [place] AMERICACreatinine [Mass/Vol] 0.88 mg/dLNormal0.73-1.22[facility] on above:Order Comment: Specimen Type: BLOOD SPECIMENOrdering Facility: [facility] Address:[address] [place], [place] [address]Performed By: #### 60116- 2 ####[facility] LABIA [id number] [place] [address] [place] AMERICACreatinine and Glomerular filtration rate.predicted panel (S/P/Bld)95 mL/min/1.73m???Normal>=60[facility] on above:Order Comment: Specimen Type: BLOOD SPECIMENOrdering Facility: [facility] Address:[address] [place], [place] [address]Result Comment: Estimated Glomerular Filtration Rate (eGFR) is calculated using the 2020 CKD-EPI creatinine equation. This equation utilizes serum creatinine, sex, and age as parameters. The creatinine assay has traceable calibration to isotope dilution-mass spectrometry. Refer to KDIGO guidelines for clinical interpretation. In patients with unstable renal function, e.g. those with acute kidney injury, the eGFR may not accurately reflect actual GFR.Performed By: #### 13196-5 ####[facility] LABIA [id number] [place] [id number] [place] OF AMERICAGlucose [Mass/Vol]82 mg/cJAeghkl91-14GndthbcqkMiami Valley Hospital on above:Order Comment: Specimen Type: BLOOD SPECIMENOrdering Facility: [facility] Address:[address] [place], [place] [address]Result Comment: The [place] Diabetes Association (ADA) provides guidance for cutoff [...] Standards of Medical Care in Diabetes 2016, [place] Diabetes Association. Diabetes Care. 2016.39(Suppl 1).Performed By: #### 37090-7 ####[facility] LABCLIA [id number] [place] [address] [place] AMERICAPotassium [Moles/Vol]4.3 mmol/LNormal3.7-5.1CLancaster Municipal Hospital Comment on above:Order Comment: Specimen Type: BLOOD SPECIMENOrdering Facility: [facility] Address:[address] [place] [address] Performed By: #### 93810-6 ####[facility]IA [id number] [place] [address] [place] Sodium [Moles/Vol]139 mmol/OOltjsh010-619MjlnwofkeKettering Health Behavioral Medical CenterComment on above:Order Comment: Specimen Type: BLOOD SPECIMENOrdering Facility: [facility] Address:[address] [place], [place] [address]Performed By: #### 43062-5 ####[facility] [id number] [place] [address] [place] AMERICAUrea nitrogen [Mass/Vol]22 mg/dLNormal9-24K[facility] Behavioral Medical CenterComment on above:Order Comment: Specimen Type: BLOOD SPECIMENOrdering Facility: [facility] Address:[address] [place], [place] [address]Performed By: #### 33531- 2 ####[facility]IA [id number] [place] [address] [place] AMERICACASE MANAGEMon 82-84-4411UCSK MANAGEMNormalKettering Health Behavioral Medical CenterCASE MANAGEMNormalKettering Health Behavioral Medical CenterCNDSon 18-61-0337ISFIOzregvChvcumbxm Clinic ClevelandMRI LUMBAR SPINE WO IVCONon 04-57-5645UYE LUMBAR SPINE WO IVCONNormalKettering Health Behavioral Medical Center THERAPY NTon 43-43-8224PKSFSWB NTNormalCLancaster Municipal HospitalCASE MANAGEMon 54-57-0426SYXM MANAGEMNormalKettering Health Behavioral Medical CenterMagnesium SerPl-mCncon 51-56-2283Vwmlmgftg [Mass/Vol]2.1 mg/dLNormal1.7-2.3CLancaster Municipal Hospital Comment on above:Order Comment: Specimen Type: BLOOD SPECIMENOrdering Facility: [facility] Address:[address] [place] [address] Performed By: #### 96068-1, 38044-3 ####[facility] LABCLIA [id number] [place] [address] [place] Renal function 2000 panelon 93-73-1701Hfincvb [Mass/Vol]3.9 g/dLNormal3.9-4.9 [facility] CenterComment on above:Order Comment: Specimen Type: BLOOD SPECIMENOrdering Facility: [facility] Address:[address] [place], [place] [address]Performed By: #### 97764-7, 51164-1 ####[facility]IA [id number] [place] [address] [place] AMERICAAnion gap [Moles/Vol]13 mmol/LNormal8-15[facility] Medical CenterComment on above:Order Comment: Specimen Type: BLOOD SPECIMENOrdering Facility: [facility] Address:[address] [place], [place] [address]Performed By: #### 12245-2, 54620-7 ####[facility]IA [id number] [place] [address] [place] AMERICACalcium [Mass/Vol]9.7 mg/dLNormal8.5-10.2CLancaster Municipal Hospital Comment on above:Order Comment: Specimen Type: BLOOD SPECIMENOrdering Facility: [facility] Address:[address] [place] [address] Performed By: #### 67753-1, 83384-0 ####[facility] LABCLIA [id number] [address] [address] [place] Chloride [Moles/Vol]101 mmol/ADddibd84-698OqcfwczgoMiami Valley Hospital on above:Order Comment: Specimen Type: BLOOD SPECIMENOrdering Facility: [facility] Address:[address] [place], [place] [address]Performed By: #### 52181-9, 51021-9 ####[facility] LABCLIA [id number] [place] [address] [place] AMERICACO2 [Moles/Vol]25 mmol/APxrngl71-55GrvqyhohuMiami Valley Hospital on above:Order Comment: Specimen Type: BLOOD SPECIMENOrdering Facility: [facility] Address:[address] [place], [place] [address]Performed By: #### 78789-3, 39849-5 ####[facility] LABCLIA [id number] [place] [address] [place] AMERICACreatinine [Mass/Vol]0.99 mg/dL Normal0.73-1.22[facility] on above:Order Comment: Specimen Type: BLOOD SPECIMENOrdering Facility: [facility] Address:[address] [place], [place] [address]Performed By: #### 57309-3, 36065-1 ####[facility]IA [id number] [place] [address] [place] AMERICACreatinine and Glomerular filtration rate.predicted panel (S/P/Bld)84 mL/min/1.73m???Normal>=60[facility] on above:Order Comment: Specimen Type: BLOOD SPECIMENOrdering Facility: [facility] Address:[address] [place], [place] [address]Result Comment: Estimated Glomerular Filtration Rate (eGFR) is calculated using the 2020 CKD-EPI creatinine equation. This equation utilizes serum creatinine, sex, and age as parameters. The creatinine assay has traceable calibration to isotope dilution-mass spectrometry. Refer to KDIGO guidelines for clinical interpretation. In patients with unstable renal function, e.g. those with acute kidney injury, the eGFR may not accurately reflect actual GFR.Performed By: #### 90443-1, 75453-2 ####[facility] LABCLIA [id number] [place] [address] [place] AMERICAGlucose [Mass/Vol]123 mg/hNRivd21-55MccbosubwKettering Health Behavioral Medical Center Comment on above:Order Comment: Specimen Type: BLOOD SPECIMENOrdering Facility: [facility] Address:[address], [place] [address]Result Comment: The [place] Diabetes Association (ADA) provides guidance for cutoff [...] Standards of Medical Care in Diabetes 2016, [place] Diabetes Association. Diabetes Care. 2016.39(Suppl 1).Performed By: #### 06835-0, 55987-7 ####[facility] LABCLIA [id number] [place] [id number] [place] AMERICAPhosphate [Mass/Vol]3.3 mg/dLNormal2.7-4.8CLancaster Municipal HospitalComment on above:Order Comment: Specimen Type: BLOOD SPECIMENOrdering Facility: [facility] Address:[address] [place], [place] [address]Performed By: #### 90231-2, 37830-2 ####[facility] LABCLIA [id number] [place] [id number] [place] AMERICAPotassium [Moles/Vol]4.4 mmol/LNormal3.7-5.1CLancaster Municipal Hospital Comment on above:Order Comment: Specimen Type: BLOOD SPECIMENOrdering Facility: [facility] Address:[address] [place] [address] Performed By: #### 25407-7, 93426-6 ####[facility] LABCLIA [id number] [place] [address] [place] Sodium [Moles/Vol]139 mmol/CRtnibi327-021QiclzzmpaMiami Valley Hospital on above:Order Comment: Specimen Type: BLOOD SPECIMENOrdering Facility: [facility] Address:[address] [place], [place] [address]Performed By: #### 89860-9, 97190-9 ####[facility] LABCLIA [id number] [address] STATES OF AMERICAUrea nitrogen [Mass/Vol]25 mg/dLHigh9-24[facility] Hospitalment on above:Order Comment: Specimen Type: BLOOD SPECIMENOrdering Facility: [facility] Address:[address] [place], [place] [address]Performed By: #### 64840- 9, 29992-7 ####[facility] LABCLIA [id number] [place] [address] [place] AMERICATHERAPY NTon 09-09-2023 THERAPY NTNormalCregency hospital toledoand [facility] HospitalTHERAPY NTNormalCLancaster Municipal HospitalCASE MGT INIT ASSESon 99-15-5783QVPV MGT INIT ASSESNormalCregency hospital toledoand [facility], [facility] HospitalED PROV NOTEon 78-13-6842JG PROV NOTENormalCregency hospital toledoand [facility], [facility] HospitalHISTORY PHYSICALon 83-18-9503REDNNPA PHYSICALNormalCLancaster Municipal HospitalCB W Auto Differential panel (Bld)on 58-23-9634Pzjylyhtl (Bld) [#/Vol] 0.00 10*3/uLNormal<0.11CVeterans Health Administration on above:Order Comment: Specimen Type: BLOOD SPECIMENOrdering Facility: [facility] Address:[address] [place], [place] [address]Performed By: #### 91887-9, 7 ####[facility] LABCLIA [id number] [place] [address] [place] AMERICABasophils/100 WBC (Bld)0.0 % NormalKettering Health Behavioral Medical CenterComment on above:Order Comment: Specimen Type: BLOOD SPECIMENOrdering Facility: [facility] Address:[address] [place], [place] [address]Performed By: #### 91775-3, 7 ####[facility] LABCLIA [id number] [place] [address] [place] AMERICADifferential cell count method Nom (Bld)ManualNormal [facility] Medical CenterComment on above:Order Comment: Specimen Type: BLOOD SPECIMENOrdering Facility: [facility] Address:[address] [place], [place] [address]Performed By: #### 45993-1, 7 ####[facility]IA [id number] [place] [address] [place] AMERICAEosinophils (Bld) [#/Vol]0.00 10*3/uLNormal<0.46K[facility] Behavioral Medical CenterComcorewell health butterworth hospital on above:Order Comment: Specimen Type: BLOOD SPECIMENOrdering Facility: [facility] Address:[address] [place], [place] [address]Performed By: #### 49873-7, 4536-09 ####[facility]IA [id number] [place] [address] [place] AMERICAEosinophils/100 WBC (Bld)0.0 %NormalKettering Health Behavioral Medical Center Comment on above:Order Comment: Specimen Type: BLOOD SPECIMENOrdering Facility: [facility] Address:[address] [place] [address] Performed By: #### 08695-9, 4536-09 ####[facility]IA [id number] [place] [address] [place] Erythrocyte distribution width (RBC) [Ratio]13.3 %Bjftok45.5-15.0[facility] on above:Order Comment: Specimen Type: BLOOD SPECIMENOrdering Facility: [facility] Address:[address] [place], [place] [address]Performed By: #### 97184-3, 453-7 ####[facility]IA [id number] [place] [address] [place] AMERICAHematocrit (Bld) [Volume fraction]38.1 %Low39.0-51.0[facility] on above:Order Comment: Specimen Type: BLOOD SPECIMENOrdering Facility: [facility] Address:[address] [place], [place] [address]Performed By: #### 50259-2, 4537-7 ####[facility]IA [id number] [place] [address] [place] AMERICAHemoglobin (Bld) [Mass/Vol]12.5 g/dLLow13.0-17.0[facility] on above:Order Comment: Specimen Type: BLOOD SPECIMENOrdering Facility: [facility] Address:[address] [place], [place] [address]Performed By: #### 08586-1, 4537-7 ####[facility]IA [id number] [place] [address] [place] AMERICALymphocytes (Bld) [#/Vol]1.64 10*3/uLNormal1.00-4.00[facility] on above:Order Comment: Specimen Type: BLOOD SPECIMENOrdering Facility: [facility] Address:[address] [place], [place] [address]Performed By: #### 46716-1, 4537-7 ####[facility] LABCLIA [id number] [place] [address] [place] AMERICALymphocytes/100 WBC (Bld)12.2 %NormalKettering Health Behavioral Medical Center Comment on above:Order Comment: Specimen Type: BLOOD SPECIMENOrdering Facility: [facility] Address:[address] [place] [address] Performed By: #### 86883-4, 4537-7 ####[facility]IA [id number] [place] [address] [place] MCH (RBC) [Entitic mass]32.6 raEocclt28.0-34.0[facility] Medical CenterComment on above:Order Comment: Specimen Type: BLOOD SPECIMENOrdering Facility: [facility] Address:[address] [place] [address] Performed By: #### 02889-2, 453-7 ####[facility]IA [id number] [place] [address] [place] MCHC (RBC) [Mass/Vol]32.8 g/cZYfvszr30.5-36.0[facility] Medical CenterComment on above:Order Comment: Specimen Type: BLOOD SPECIMENOrdering Facility: [facility] Address:[address] [place] [address] Performed By: #### 81995-0, 4536-7 ####[facility]IA [id number] [place] [address] [place] MCV (RBC) [Entitic vol]99.2 mWLnynlk44.0-100.0[facility] on above:Order Comment: Specimen Type: BLOOD SPECIMENOrdering Facility: [facility] Address:[address] [place] [address] Performed By: #### 72638-9, 4536-7 ####[facility]IA [id number] [place] [address] [place] Monocytes (Bld) [#/Vol]1.40 10*3/uLHigh<0.87[facility] on above:Order Comment: Specimen Type: BLOOD SPECIMENOrdering Facility: [facility] Address:[address] [place], [place] [address]Performed By: #### 70292-0, 4536-7 ####[facility] LABCLIA [id number] [place] [address] [place] AMERICAMonocytes/100 WBC (Bld)10.4 %NormalMiami Valley Hospital on above:Order Comment: Specimen Type: BLOOD SPECIMENOrdering Facility: [facility] Address:[address] [place], [place] [address]Performed By: #### 97569-0, 4536-7 ####[facility] LABCLIA [id number] [place] [address] [place] AMERICANeutrophils (Bld) [#/Vol]10.39 10*3/uLHigh1.45-7.50[facility] on above:Order Comment: Specimen Type: BLOOD SPECIMENOrdering Facility: [facility] Address:[address] [place], [place] [address]Performed By: #### 74778-0, 7 ####[facility] LABCLIA [id number] [place] [address] [place] AMERICANeutrophils/100 WBC (Bld)77.4 % NormalMiami Valley Hospital on above:Order Comment: Specimen Type: BLOOD SPECIMENOrdering Facility: [facility] Address:[address] [place], [place] [address]Performed By: #### 60657-6, 4536-7 ####[facility] LABCLIA [id number] [place] [address] [place] AMERICANucleated RBC (Bld) [#/Vol]10*3/uLNormal<0.01[facility] on above:Order Comment: Specimen Type: BLOOD SPECIMENOrdering Facility: [facility] Address:[address] [place], [place] [address]Performed By: #### 08555-7, 4536-7 ####[facility]IA [id number] [place] [address] [place] AMERICANucleated RBC/100 WBC (Bld) [Ratio]0.0 /100 WBCNormalCLancaster Municipal HospitalComment on above:Order Comment: Specimen Type: BLOOD SPECIMENOrdering Facility: [facility] Address:[address] [place], [place] [address]Performed By: #### 53677-9, 4536-7 ####[facility]IA [id number] [place] [address] [place] AMERICAPlatelet mean volume (Bld) [Entitic vol]9.9 fLNormal9.0-12.7 [facility] CenterComment on above:Order Comment: Specimen Type: BLOOD SPECIMENOrdering Facility: [facility] Address:[address] [place], [place] [address]Performed By: #### 15425-5, 7 ####[facility]IA [id number] [place] [address] [place] AMERICAPlatelets (Bld) [#/Vol]285 10*3/gPVolacg527-035LsvxbfxbbKettering Health Behavioral Medical CenterComment on above:Order Comment: Specimen Type: BLOOD SPECIMENOrdering Facility: [facility] Address:[address] [place], [place] [address]Performed By: #### 40143-6, 7 ####[facility] [id number] [place] [address] [place] AMERICAPlatelets Estimate (Bld) [#/Vol]AdequateNormalCLancaster Municipal Hospital Comment on above:Order Comment: Specimen Type: BLOOD SPECIMENOrdering Facility: [facility] Address:[address] [place] [address] Performed By: #### 22979-8, 4536-7 ####[facility] LABCLIA [id number] [facility]L[address] AVENUEST[facility] [place] [address] [place] RBC (Bld) [#/Vol]3.84 10*6/uLLow4.20-6.00[facility] on above:Order Comment: Specimen Type: BLOOD SPECIMENOrdering Facility: [facility] Address:[address] [place], [place] [address]Performed By: #### 75726-9, 4537-7 ####[facility]IA [id number] [place] [address] [place] AMERICARED CELL MORPH Reviewed: unremarkableNormalClevelOur Lady of Mercy Hospital on above:Order Comment: Specimen Type: BLOOD SPECIMENOrdering Facility: [facility] Address:[address] [place], [place] [address]Performed By: #### 58800- 8, 4537-7 ####[facility] LABCLIA [id number] [facility] [place] [address] [place] AMERICAWBC (Bld) [#/Vol]13.43 10*3/uLHigh3.70-11.00[facility] on above:Order Comment: Specimen Type: BLOOD SPECIMENOrdering Facility: [facility] Address:[address] [place], [place] [address]Performed By: #### 72544-5, 4537-7 ####[facility]IA [id number] [place] [address] [place] AMERICACONSULTon 30-27-7404JYBOJAMKvwfxz [facility] Medical CenterCR SerPl-mCncon 96-96-3865JGF [Mass/Vol]mg/LNormal <0.9CVeterans Health Administration on above:Order Comment: Specimen Type: BLOOD SPECIMENOrdering Facility: [facility] Address:[address] [place], [place] [address]Performed By: #### 55284-4, 1987-07, , ####[facility] LABCLIA [id number] [address] [address] [place] OF AMERICACT LUMBAR SPINE WO IVCONon 25-46-7029LR LUMBAR SPINE WO IVCONNormalKettering Health Behavioral Medical CenterComprehensive metabolic 2000 panelon 97-87-2042Odqynhq [Mass/Vol]4.0 g/dLNormal3.9-4.9 [facility] on above:Order Comment: Specimen Type: BLOOD SPECIMENOrdering Facility: [facility] Address:[address] [place], [place] [address]Performed By: #### 54166-2, 1987-07, , ####[facility] LABCLIA [id number] [place] [id number] [place] AMERICAALP [Catalytic activity/Vol]136 U/ZRndh19-538YhtjmfsftMiami Valley Hospital on above:Order Comment: Specimen Type: BLOOD SPECIMENOrdering Facility: [facility] Address:[address] [place], [place] [address]Performed By: #### 00627-2, 1987-07, , ####[facility]CLIA [id number] [place] [id number] [place] AMERICAALT [Catalytic activity/Vol]20 U/NJkdwlx56-32GwhxzpdbtMiami Valley Hospital on above:Order Comment: Specimen Type: BLOOD SPECIMENOrdering Facility: [facility] Address:[address] [place], [place] [address]Performed By: #### 63173- 8, 1987-07, , ####[facility] LABCLIA [id number] [address] [address] [place] AMERICAAnion gap [Moles/Vol]10 mmol/LNormal8-15[facility] on above: Order Comment: Specimen Type: BLOOD SPECIMENOrdering Facility: [facility] Address:[address] [place], [place] [address]Performed By: #### 54317- 8, 1987-07, , 50093-1 ####[facility] LABCLIA [id number] [place] [address] [place] AMERICAAST [Catalytic activity/Vol]19 U/RTqcbsx32-23JqjydqoesMiami Valley Hospital on above:Order Comment: Specimen Type: BLOOD SPECIMENOrdering Facility: [facility] Address:[address] [place], [place] [address]Performed By: #### 31619-9, 1987-07, , 60781-6 ####[facility] LABCLIA [id number] [place] [address] [place] Bilirubin [Mass/Vol]0.6 mg/dLNormal0.2-1.3CVeterans Health Administration on above:Order Comment: Specimen Type: BLOOD SPECIMENOrdering Facility: [facility] Address:[address] [place], [place] [address]Performed By: #### 52451-1, 1987-07, , 32812-6 ####[facility] LABCLIA [id number] [place] [address] [place] Calcium [Mass/Vol]9.7 mg/dLNormal8.5-10.2CVeterans Health Administration on above:Order Comment: Specimen Type: BLOOD SPECIMENOrdering Facility: [facility] Address:[address] [place], [place] [address]Performed By: #### 78367-4, 1987-07, , 68028-9 ####[facility] LABCLIA [id number] [place] [address] [place] Chloride [Moles/Vol]105 mmol/NZpdkht77-611GdldeesonMiami Valley Hospital on above:Order Comment: Specimen Type: BLOOD SPECIMENOrdering Facility: [facility] Address:[address] [place] [address]Uvpzcpsxp By: #### 96480-5, 1987-07, , 57971-3 ####[facility]CLIA [id number] [place] [id number] [place] CO2 [Moles/Vol]26 mmol/BRywkjz13-40HsgmwppbyMiami Valley Hospital on above: Order Comment: Specimen Type: BLOOD SPECIMENOrdering Facility: [facility] Address:[address] [place], [place] [address]Performed By: #### 13940- 8, 1987-07, , 49384-2 ####[facility] LABCLIA [id number] [place] [address] [place] Creatinine [Mass/Vol]0.93 mg/dLNormal0.73-1.22[facility] on above:Order Comment: Specimen Type: BLOOD SPECIMENOrdering Facility: [facility] Address:[address] [place] [address] Performed By: #### 70124-2, 1987-07, , 64916-9 ####[facility] LABCLIA [id number] [place] [address] [place] AMERICACreatinine and Glomerular filtration rate.predicted panel (S/P/Bld)91 mL/min/1.73m???Normal>=60[facility] on above: Order Comment: Specimen Type: BLOOD SPECIMENOrdering Facility: [facility] Address:[address] [place], [place] [address]Result Comment: Estimated Glomerular Filtration Rate (eGFR) is [...] not accurately reflect actual GFR.Performed By: #### 32981-7, 1987-07, , 50112-7 ####[facility] LABCLIA [id number] [place] [id number] [place] AMERICAGlucose [Mass/Vol]90 mg/lMYprqxb59-90VdsyrqifuMiami Valley Hospital on above:Order Comment: Specimen Type: BLOOD SPECIMENOrdering Facility: [facility] Address:[address] [place], [place] [address]Result Comment: The [place] Diabetes Association (ADA) provides guidance for cutoff [...] Standards of Medical Care in Diabetes 2016, [place] [employer]. Diabetes Care. 2016.39(Suppl 1). Performed By: #### 55130-0, 1987-07, , 41656-2 ####[facility] LABCLIA [id number] [place] [id number] [place] AMERICAPotassium [Moles/Vol]3.8 mmol/LNormal3.7-5.1CVeterans Health Administration on above:Order Comment: Specimen Type: BLOOD SPECIMENOrdering Facility: [facility] Address:[address] [place] [id number] By: #### 62195-3, 1987-07, , 99803-3 ####[facility] LABCLIA [id number] [place] [id number] [place] AMERICAProtein [Mass/Vol]6.0 g/dLLow6.3-8.0[facility] on above:Order Comment: Specimen Type: BLOOD SPECIMENOrdering Facility: [facility] Address:[address] [place], [place] [address]Performed By: #### 79631-3, 1987-07, , 42229-5 ####[facility] LABCLIA [id number] [place] [address] [place] AMERICASodium [Moles/Vol]141 mmol/BArptnz749-782JpuvqoifiMiami Valley Hospital on above:Order Comment: Specimen Type: BLOOD SPECIMENOrdering Facility: [facility] Address:[address] [place], [place] [address]Performed By: #### 26654-0, 1987-07, , 17135-3 ####[facility]CLIA [id number] [place] [address] [place] AMERICAUrea nitrogen [Mass/Vol]29 mg/dL High9-24[facility] on above:Order Comment: Specimen Type: BLOOD SPECIMENOrdering Facility: [facility] Address:[address] [place], [place] [address]Performed By: #### 10553-6, 1987-07, , 80020-6 ####[facility]CLIA [id number] [place] [address] [place] AMERICAESR Westergren method (Bld) [Velocity]on 78-60-1763LFG (Bld) [Velocity]5 mm/hNormal0-15[facility] on above:Order Comment: Specimen Type: BLOOD SPECIMENOrdering Facility: [facility] Address:[address] [place], [place] [address]Performed By: #### 07168-8, 4537-7 ####[facility] LABCLIA [id number] [place] [address] [place] AMERICAMagnesium SerPl-mCncon [id number] [Mass/Vol]2.1 mg/dL Normal1.7-2.3[facility] ClevelandComment on above:Order Comment: Specimen Type: BLOOD SPECIMENOrdering Facility: [facility] Address:[address] [place], [place] [address]Performed By: #### 93093-7, 1987-07, , ####[facility] LABCLIA [id number] [address] [address] [place] OF AMERICANT-proBNP SerPl-mCncon 65-52-1400Oyxtxursxny peptide.B prohormone N-Terminal [Mass/Vol]153 pg/mLHigh <125[facility] Medical CenterComcorewell health butterworth hospital on above:Order Comment: Specimen Type: BLOOD SPECIMENOrdering Facility: [facility] Address:[address] [place], [place] [address]Performed By: #### 23890-4, 1987-07, , ####[facility] LABCLIA [id number] [place] [address] [place] AMERICAUS DVT LOWER BILon 70-46-3770CR DVT LOWER BILNormalCLancaster Municipal HospitalUrinalysis complete panel (U)on 67-13-6020Ioalcrwh LM.HPF (Urine sed) [#/Area]NegativeNormalNegativeKettering Health Behavioral Medical CenterComcorewell health butterworth hospital on above:Order Comment: Specimen Type: URINE SPECIMENOrdering Facility: [facility] Address:[address] [place], [place] [address]Performed By: #### 81346-4 ####[facility] LABCLIA [id number] [place] [address] [place] AMERICABilirubin Ql (U)NegativeNormalNegativeKettering Health Behavioral Medical CenterComment on above:Order Comment: Specimen Type: URINE SPECIMENOrdering Facility: [facility] Address:[address] [place] [address] Performed By: #### 02546-0 ####[facility] LABCLIA [id number] [place] [address] [place] Clarity (Unsp spec)ClearNormalClearCleAultman Hospital ClevelandComment on above: Order Comment: Specimen Type: URINE SPECIMENOrdering Facility: [facility] Address:[address] [place], [place] [address]Performed By: #### 49218- 8 ####[facility] LABCLIA [id number] [place] [address] [place] AMERICAColor (U)YellowNormalYellow [facility] on above:Order Comment: Specimen Type: URINE SPECIMENOrdering Facility: [facility] Address:[address] [place], [place] [address]Performed By: #### 74609-2 ####[facility] LABCLIA [id number] [place] [address] [place] AMERICAEpithelial cells LM.HPF (Urine sed) [#/Area]None SeenNoalCVeterans Health Administration on above:Order Comment: Specimen Type: URINE SPECIMENOrdering Facility: [facility] Address:[address] [place], [place] [address]Performed By: #### 28589-4 ####[facility] LABCLIA [id number] [place] [address] [place] AMERICAGlucose Test strip (U) [Mass/Vol]NegativeNormalNegativeMiami Valley Hospital on above:Order Comment: Specimen Type: URINE SPECIMENOrdering Facility: [facility] Address:[address] [place], [place] [address]Performed By: #### 39761-4 ####[facility] LABCLIA [id number] [place] [id number] [place] Hemoglobin Ql (U)NegativeNormalNegativeMiami Valley Hospital on above:Order Comment: Specimen Type: URINE SPECIMENOrdering Facility: [facility] Address:[address] [place], [place] [address]Performed By: #### 58618-6 ####[facility] LABCLIA [id number] [place] [address] [place] AMERICAHyaline casts (Urine sed) [#/Area]0 /[LPF]Normal0 /LPFCVeterans Health Administration on above: Order Comment: Specimen Type: URINE SPECIMENOrdering Facility: [facility] Address:[address] [place], [place] [address]Performed By: #### 84259- 8 ####[facility] LABCLIA [id number] [place] [address] [place] AMERICAKetones Ql (U)NegativeNormal NegativeMiami Valley Hospital on above:Order Comment: Specimen Type: URINE SPECIMENOrdering Facility: [facility] Address:[address] [place], [place] [address]Performed By: #### 02534-4 ####[facility] LABCLIA [id number] [address] STATES OF AMERICALeukocyte esterase Test strip Ql (U)NegativeNormal NegativeMiami Valley Hospital on above:Order Comment: Specimen Type: URINE SPECIMENOrdering Facility: [facility] Address:[address] [place], [place] [address]Performed By: #### 55392-7 ####[facility] LABCLIA [id number] [place] [address] [place] AMERICANitrite Ql (U)NegativeNormalNegativeMiami Valley Hospital on above:Order Comment: Specimen Type: URINE SPECIMENOrdering Facility: [facility] Address:[address] [place], [place] [address]Performed By: #### 12452-9 ####[facility] LABCLIA [id number] [place] [address] [place] pH (U)7.0 [pH]Normal<8.5CVeterans Health Administration on above:Order Comment: Specimen Type: URINE SPECIMENOrdering Facility: [facility] Address:[address] [place], [place] [address]Performed By: #### 14225- 8 ####[facility] LABIA [id number] [place] [address] [place] AMERICAProtein (U) [Mass/Vol]Negative NormalNegativeMiami Valley Hospital on above:Order Comment: Specimen Type: URINE SPECIMENOrdering Facility: [facility] Address:[address] [place], [place] [address]Performed By: #### 26735-1 ####[facility] [id number] [place] [address] [place] [address] [address] [facility] MEDICAL CENTERRBC LM.HPF (Urine sed) [#/Area]0-2 /HPFNormal0-2 /HPF [facility] on above:Order Comment: Specimen Type: URINE SPECIMENOrdering Facility: [facility] Address:[address] [place], [place] [address]Performed By: #### 15962-6 ####[facility] [id number] [place] [address] [place] AMERICASpecific gravity (U) [Rel density]1.101Ktfkjs2.005-1.030[facility] on above:Order Comment: Specimen Type: URINE SPECIMENOrdering Facility: [facility] Address:[address] [place], [place] [address]Performed By: #### 59512-5 ####[facility] [id number] [place] [address] [place] Urobilinogen Ql (U)0.2 EU/dLNormal0.2-1.0 EU/dLMiami Valley Hospital on above:Order Comment: Specimen Type: URINE SPECIMENOrdering Facility: [facility] Address:[address] [place] [address] Performed By: #### 73534-8 ####[facility] [id number] [place] [address] [place] WBC LM.HPF (Urine sed) [#/Area]0-5 /HPFNormal0-5 /HPFKettering Health Behavioral Medical Center Comment on above:Order Comment: Specimen Type: URINE SPECIMENOrdering Facility: [facility] Address:[address] [place] [address] Performed By: #### 23768-6 ####[facility] LABIA [id number] [place] [address] [place] XR LUMBAR 3V AP/LAT/L5-S1on 66-73-6567QK LUMBAR 3V AP/LAT/L5-R3WvlvofYcxbunkbyLancaster Municipal HospitalCNPNon 07-86-0466EZENXcsrrzOzrealrgl Clinic ClevelandCNPNon 82-00-2909IKTSVntsakWmrqdehfb Clinic ClevelandCNCOon 85-96-0537DNBMZuatty Text NormalKettering Health Behavioral Medical CenterBasi metabolic 2000 panelon 24-97-9042Dhmth gap [Moles/Vol]9 mmol/LNormal8-15[facility] Medical CenterComment on above:Order Comment: Specimen Type: BLOOD SPECIMENOrdering Facility: [facility] Address:[address] [place], [place] [address]Performed By: #### 40551- 2 ####[facility] LABCLIA [id number] [place] [address] [place] AMERICACalcium [Mass/Vol]9.4 mg/dLNormal 8.5-10.2CLancaster Municipal HospitalComment on above:Order Comment: Specimen Type: BLOOD SPECIMENOrdering Facility: [facility] Address:[address] [place], [place] [address]Performed By: #### 43134-6 ####[facility] LABIA [id number] [place] [address] [place] AMERICAChloride [Moles/Vol]103 mmol/SSuhymc69-319KnevqufgbKettering Health Behavioral Medical CenterComment on above:Order Comment: Specimen Type: BLOOD SPECIMENOrdering Facility: [facility] Address:[address] [place], [place] [address]Performed By: #### 44174-1 ####[facility] LABCLIA [id number] [place] [address] [place] AMERICACO2 [Moles/Vol]26 mmol/LGvocyr03-51UqdduukhdMiami Valley Hospital on above:Order Comment: Specimen Type: BLOOD SPECIMENOrdering Facility: [facility] Address:[address] [place], [place] [address]Performed By: #### 81792-1 ####[facility] LABIA [id number] [place] [address] [place] AMERICACreatinine [Mass/Vol] 0.77 mg/dLNormal0.73-1.22[facility] on above:Order Comment: Specimen Type: BLOOD SPECIMENOrdering Facility: [facility] Address:[address] [place], [place] [address]Performed By: #### 70529- 2 ####[facility]USIA [id number] [place] [address] [place] AMERICACreatinine and Glomerular filtration rate.predicted panel (S/P/Bld)99 mL/min/1.73m???Normal>=60[facility] on above:Order Comment: Specimen Type: BLOOD SPECIMENOrdering Facility: [facility] Address:[address] [place], [place] [address]Result Comment: Estimated Glomerular Filtration Rate (eGFR) is calculated using the 2020 CKD-EPI creatinine equation. This equation utilizes serum creatinine, sex, and age as parameters. The creatinine assay has traceable calibration to isotope dilution-mass spectrometry. Refer to KDIGO guidelines for clinical interpretation. In patients with unstable renal function, e.g. those with acute kidney injury, the eGFR may not accurately reflect actual GFR.Performed By: #### 40629-0 ####[facility] LABIA [id number] [place] [id number] [place] AMERICAGlucose [Mass/Vol]112 mg/pDXiku52-75VhtrswzwyMiami Valley Hospital on above:Order Comment: Specimen Type: BLOOD SPECIMENOrdering Facility: [facility] Address:[address] [place], [place] [address]Result Comment: The [place] Diabetes Association (ADA) provides guidance for cutoff [...] Standards of Medical Care in Diabetes 2016, [place] [employer]. Diabetes Care. 2016.39(Suppl 1).Performed By: #### 25276-6 ####[facility] LABCLIA [id number] [place] [address] [place] AMERICAPotassium [Moles/Vol]5.1 mmol/LNormal3.7-5.1CLancaster Municipal Hospital Comment on above:Order Comment: Specimen Type: BLOOD SPECIMENOrdering Facility: [facility] Address:[address] [place], [place] [address] Performed By: #### 99989-9 ####[facility] LABCLIA [id number] [place] [address] [place] Sodium [Moles/Vol]138 mmol/TKyyovh460-715GougyrjnoKettering Health Behavioral Medical CenterComment on above:Order Comment: Specimen Type: BLOOD SPECIMENOrdering Facility: [facility] Address:[address] [place], [place] [address]Performed By: #### 81520-7 ####[facility] LABCLIA [id number] [place] [address] [place] AMERICAUrea nitrogen [Mass/Vol]16 mg/dLNormal9-24[facility] Medical CenterComcorewell health butterworth hospital on above:Order Comment: Specimen Type: BLOOD SPECIMENOrdering Facility: [facility] Address:[address] [place], [place] [address]Performed By: #### 76510- 2 ####[facility] LABCLIA [id number] [address]CBC panel Auto (Bld)on 08-22-2023 Erythrocyte distribution width (RBC) [Ratio]13.2 %Oepwzf98.5-15.0[facility] Medical CenterComment on above:Order Comment: Specimen Type: BLOOD SPECIMENOrdering Facility: [facility] Address:[address] [place], [place] [address]Performed By: #### 02062-9 ####[facility] LABCLIA [id number] [address] STREETHematocrit (Bld) [Volume fraction]34.6 %Low39.0-51.0[facility] Medical CenterComment on above:Order Comment: Specimen Type: BLOOD SPECIMENOrdering Facility: [facility] Address:[address] [place], [place] [address]Performed By: #### 60757-1 ####[facility] LABCLIA [id number] [address] [place] Hemoglobin (Bld) [Mass/Vol]11.6 g/dLLow13.0-17.0[facility] Comment on above:Order Comment: Specimen Type: BLOOD SPECIMENOrdering Facility: [facility] Address:[address] [place] [address] Performed By: #### 96097-2 ####[facility] LABCLIA [id number] [place] [address] [place] MCH (RBC) [Entitic mass]31.9 srNvkplf43.0-34.0[facility] on above:Order Comment: Specimen Type: BLOOD SPECIMENOrdering Facility: [facility] Address:[address] [place] [address] Performed By: #### 28286-7 ####[facility] LABCLIA [id number] [place] [address] [place] MCHC (RBC) [Mass/Vol]33.5 g/pXAbihco03.5-36.0[facility] on above:Order Comment: Specimen Type: BLOOD SPECIMENOrdering Facility: [facility] Address:[address] [place] [address] Performed By: #### 73430-9 ####[facility] [id number] [place] [address] [place] MCV (RBC) [Entitic vol]95.1 bQMjcqbi19.0-100.0[facility] on above:Order Comment: Specimen Type: BLOOD SPECIMENOrdering Facility: [facility] Address:[address] [place] [address] Performed By: #### 07097-9 ####[facility] [id number] [place] [address] [place] Nucleated RBC (Bld) [#/Vol]10*3/uLNormal<0.01[facility] on above:Order Comment: Specimen Type: BLOOD SPECIMENOrdering Facility: [facility] Address:[address] [place] [address] Performed By: #### 61957-7 ####[facility] [id number] [place] [address] [place] Platelet mean volume (Bld) [Entitic vol]9.7 fLNormal9.0-12.7CVeterans Health Administration on above:Order Comment: Specimen Type: BLOOD SPECIMENOrdering Facility: [facility] Address:[address] [place], [place] [address]Performed By: #### 00445-4 ####[facility] [id number] [place] [address] [place] Platelets (Bld) [#/Vol]393 10*3/kLZexjnm202-210VwvgmqevmMiami Valley Hospital on above:Order Comment: Specimen Type: BLOOD SPECIMENOrdering Facility: [facility] Address:[address] [place] [address] Performed By: #### 01803-1 ####[facility] LABCLIA [id number] [place] [address] [place] RBC (Bld) [#/Vol]3.64 10*6/uLLow4.20-6.00[facility] on above:Order Comment: Specimen Type: BLOOD SPECIMENOrdering Facility: [facility] Address:[address] [place], [place] [address]Performed By: #### 41658-2 ####[facility] LABCLIA [id number] [place] [address] [place] AMERICAWBC (Bld) [#/Vol]17.35 10*3/uLHigh3.70-11.00[facility] on above:Order Comment: Specimen Type: BLOOD SPECIMENOrdering Facility: [facility] Address:[address] [place], [place] [address]Performed By: #### 93396-8 ####[facility] LABCLIA [id number] [place] [address] [place] AMERICACNDSon 28-82-1835OXHHNhcmfs [facility] Medical CenterTHERAPY NTon 96-97-7261PLUXLZL NTNormalCLancaster Municipal HospitalBabourbon community hospital metabolic 2000 panelon 57-94-7288Oedig gap [Moles/Vol]10 mmol/LNormal8-15[facility] on above:Order Comment: Specimen Type: BLOOD SPECIMENOrdering Facility: [facility] Address:[address] [place], [place] [address]Performed By: #### 05125-8 ####[facility] LABCLIA [id number] [place] [address] [place] AMERICACalcium [Mass/Vol]9.5 mg/dLNormal 8.5-10.2CVeterans Health Administration on above:Order Comment: Specimen Type: BLOOD SPECIMENOrdering Facility: [facility] Address:[address] [place], [place] [address]Performed By: #### 64788-3 ####[facility] LABCLIA [id number] [place] [address] [place] AMERICAChloride [Moles/Vol]106 mmol/ZZqtkog87-612MduahryusMiami Valley Hospital on above:Order Comment: Specimen Type: BLOOD SPECIMENOrdering Facility: [facility] Address:[address] [place], [place] [address]Performed By: #### 12350-4 ####[facility] LABCLIA [id number] [place] [address] [place] AMERICACO2 [Moles/Vol]22 mmol/MHgwfvr14-12IjvbmxtkzMiami Valley Hospital on above:Order Comment: Specimen Type: BLOOD SPECIMENOrdering Facility: [facility] Address:[address] [place], [place] [address]Performed By: #### 86957-0 ####[facility] LABCLIA [id number] [place] [address] [place] AMERICACreatinine [Mass/Vol] 0.84 mg/dLNormal0.73-1.22[facility] on above:Order Comment: Specimen Type: BLOOD SPECIMENOrdering Facility: [facility] Address:[address] [place], [place] [address]Performed By: #### 38593- 2 ####[facility] LABCLIA [id number] [place] [address] [place] AMERICACreatinine and Glomerular filtration rate.predicted panel (S/P/Bld)96 mL/min/1.73m???Normal>=60[facility] on above:Order Comment: Specimen Type: BLOOD SPECIMENOrdering Facility: [facility] Address:[address] [place], [place] [address]Result Comment: Estimated Glomerular Filtration Rate (eGFR) is calculated using the 2020 CKD-EPI creatinine equation. This equation utilizes serum creatinine, sex, and age as parameters. The creatinine assay has traceable calibration to isotope dilution-mass spectrometry. Refer to KDIGO guidelines for clinical interpretation. In patients with unstable renal function, e.g. those with acute kidney injury, the eGFR may not accurately reflect actual GFR.Performed By: #### 53084-4 ####[facility] LABCLIA [id number] [place] [address] [place] AMERICAGlucose [Mass/Vol]140 mg/gLMdtd91-35WerxsissrKettering Health Behavioral Medical CenterComment on above:Order Comment: Specimen Type: BLOOD SPECIMENOrdering Facility: [facility] Address:[address] [place], [place] [address]Result Comment: The [place] Diabetes Association (ADA) provides guidance for cutoff [...] Standards of Medical Care in Diabetes 2016, [place] Diabetes Association. Diabetes Care. 2016.39(Suppl 1).Performed By: #### 73447-6 ####[facility] LABCLIA [id number] [place] [id number] [place] AMERICAPotassium [Moles/Vol]4.4 mmol/LNormal3.7-5.1CLancaster Municipal Hospital Comment on above:Order Comment: Specimen Type: BLOOD SPECIMENOrdering Facility: [facility] Address:[address] [place] [address] Performed By: #### 08632-6 ####[facility] LABCLIA [id number] [place] [address] [place] Sodium [Moles/Vol]138 mmol/MRfzziq405-272KpaaoxgzlMiami Valley Hospital on above:Order Comment: Specimen Type: BLOOD SPECIMENOrdering Facility: [facility] Address:[address] [place], [place] [address]Performed By: #### 73428-7 ####[facility] LABIA [id number] [place] [address] [place] AMERICAUrea nitrogen [Mass/Vol]14 mg/dLNormal9-24[facility] on above:Order Comment: Specimen Type: BLOOD SPECIMENOrdering Facility: [facility] Address:[address] [place], [place] [address]Performed By: #### 39766- 2 ####[facility]USIA [id number] [place] [address] [place] AMERICACASE MANAGEMon 83-46-1383EGOB MANAGEMNormalBlanchard Valley Health System panel Auto (Bld)on 08-21-2023 Erythrocyte distribution width (RBC) [Ratio]13.1 %Kueulc08.5-15.0[facility] on above:Order Comment: Specimen Type: BLOOD SPECIMENOrdering Facility: [facility] Address:[address] [place], [place] [address]Performed By: #### 13917-3 ####[facility] LABIA [id number] [place] [address] [place] [facility] [facility] MEDICAL CENTERHematocrit (Bld) [Volume fraction]34.2 %Low39.0-51.0[facility] on above:Order Comment: Specimen Type: BLOOD SPECIMENOrdering Facility: [facility] Address:[address] [place], [place] [address]Performed By: #### 31609-3 ####[facility] LABIA [id number] [place] [address] [place] Hemoglobin (Bld) [Mass/Vol]11.6 g/dLLow13.0-17.0[facility] Comment on above:Order Comment: Specimen Type: BLOOD SPECIMENOrdering Facility: [facility] Address:[address] [place] [address] Performed By: #### 14566-6 ####[facility] LABCLIA [id number] [place] [address] [place] MCH (RBC) [Entitic mass]31.7 jfQnpmcp19.0-34.0[facility] on above:Order Comment: Specimen Type: BLOOD SPECIMENOrdering Facility: [facility] Address:[address] [place] [address] Performed By: #### 23741-6 ####[facility] LABIA [id number] [place] [address] [place] MCHC (RBC) [Mass/Vol]33.9 g/gMXhhqyo06.5-36.0[facility] Medical CenterComment on above:Order Comment: Specimen Type: BLOOD SPECIMENOrdering Facility: [facility] Address:[address] [place] [address] Performed By: #### 64224-0 ####[facility] LABIA [id number] [place] [address] [place] MCV (RBC) [Entitic vol]93.4 oUYgdaai32.0-100.0[facility] on above:Order Comment: Specimen Type: BLOOD SPECIMENOrdering Facility: [facility] Address:[address] [place] [address] Performed By: #### 19207-6 ####[facility] LABIA [id number] [place] [address] [place] Nucleated RBC (Bld) [#/Vol]10*3/uLNormal<0.01[facility] on above:Order Comment: Specimen Type: BLOOD SPECIMENOrdering Facility: [facility] Address:[address] [place] [address] Performed By: #### 60680-7 ####[facility] LABIA [id number] [place] [address] [place] Platelet mean volume (Bld) [Entitic vol]9.3 fLNormal9.0-12.7CVeterans Health Administration on above:Order Comment: Specimen Type: BLOOD SPECIMENOrdering Facility: [facility] Address:[address] [place], [place] [address]Performed By: #### 70283-5 ####[facility] LABIA [id number] [place] [address] [place] Platelets (Bld) [#/Vol]324 10*3/hTVtfise215-082EtdnnrwsrMiami Valley Hospital on above:Order Comment: Specimen Type: BLOOD SPECIMENOrdering Facility: [facility] Address:[address] [place] [address] Performed By: #### 78650-4 ####[facility] LABIA [id number] [place] [address] [place] RBC (Bld) [#/Vol]3.66 10*6/uLLow4.20-6.00[facility] on above:Order Comment: Specimen Type: BLOOD SPECIMENOrdering Facility: [facility] Address:[address] [place], [place] [address]Performed By: #### 53009-1 ####[facility] LABIA [id number] [place] [address] [place] AMERICAWBC (Bld) [#/Vol]13.46 10*3/uLHigh3.70-11.00[facility] on above:Order Comment: Specimen Type: BLOOD SPECIMENOrdering Facility: [facility] Address:[address] [place], [place] [address]Performed By: #### 62350-2 ####[facility] LABCLIA [id number] [address] [address] [place] AMERICATHERAPY NTon 51-61-7653PBIQZGP NT NormalKettering Health Behavioral Medical CenterTHERAPY NTNormalClevelAtrium Health [facility] THERAPY NTNormalCregency hospital toledoand [facility], [facility] HospitalXR LUMBAR 2V AP/LATon 31-26-0223JA LUMBAR 2V AP/LATNormalCregency hospital toledoand [facility], [facility] HospitalBasic metabolic 2000 panelon [id number] gap [Moles/Vol]11 mmol/LNormal8-15[facility] Comment on above:Order Comment: Specimen Type: BLOOD SPECIMENOrdering Facility: [facility] Address:[address] [place] [address] Performed By: #### [id number] ####[facility] LABCLIA [id number] [place] [address] [place] Calcium [Mass/Vol]9.3 mg/dLNormal8.5-10.2CLancaster Municipal HospitalComcorewell health butterworth hospital on above:Order Comment: Specimen Type: BLOOD SPECIMENOrdering Facility: [facility] Address:[address] [place], [place] [address]Performed By: #### 74956-9 ####[facility]CLIA [id number] [place] [address] [place] OF AMERICAChloride [Moles/Vol] 105 mmol/EKqorbg35-396KxggrriiuKettering Health Behavioral Medical CenterComment on above:Order Comment: Specimen Type: BLOOD SPECIMENOrdering Facility: [facility] Address:[address] [place], [place] [address]Performed By: #### 97806-7 ####[facility] [id number] [place] [id number] [place] OF AMERICACO2 [Moles/Vol]24 mmol/LNormal 22-30[facility] on above:Order Comment: Specimen Type: BLOOD SPECIMENOrdering Facility: [facility] Address:[address] [place], [place] [address]Performed By: #### 02403-2 ####[facility]IA [id number] [place] [address] [place] [facility] CENTERCreatinine [Mass/Vol]0.86 mg/dLNormal0.73-1.22[facility] on above:Order Comment: Specimen Type: BLOOD SPECIMENOrdering Facility: [facility] Address:[address] [place], [place] [address]Performed By: #### 15823-3 ####[facility] [id number] [place] [address] [place] Creatinine and Glomerular filtration rate.predicted panel (S/P/Bld)95 mL/min/1.73m???Normal>=60[facility] on above:Order Comment: Specimen Type: BLOOD SPECIMENOrdering Facility: [facility] Address:[address] [place], [place] [address]Result Comment: Estimated Glomerular Filtration Rate (eGFR) is [...] not accurately reflect actual GFR.Performed By: #### 99854-7 ####[facility] LABIA [id number] [place] [address] [place] AMERICAGlucose [Mass/Vol]111 mg/dLHigh 74-99[facility] on above:Order Comment: Specimen Type: BLOOD SPECIMENOrdering Facility: [facility] Address:[address] [place], [place] [address]Result Comment: The [place] Diabetes Association (ADA) provides guidance for cutoff [...] Standards of Medical Care in Diabetes 2016, [place] Diabetes Association. Diabetes Care. 2016.39(Suppl 1).Performed By: #### 77073-6 ####[facility] LABIA [id number] [place] [address] [place] [facility] CENTERPotassium [Moles/Vol]4.0 mmol/L Normal3.7-5.1CLancaster Municipal HospitalComment on above:Order Comment: Specimen Type: BLOOD SPECIMENOrdering Facility: [facility] Address:[address] [place], [place] [address]Performed By: #### 51621-9 ####[facility] [id number] [address]ETSodium [Moles/Vol]140 mmol/SOcfolb173-086LrvjarcouKettering Health Behavioral Medical CenterComment on above:Order Comment: Specimen Type: BLOOD SPECIMENOrdering Facility: [facility] Address:[address] [place], [place] [address]Performed By: #### 27341-2 ####[facility] [id number] [address] STATES OF [facility] MEDICAL CENTERUrea nitrogen [Mass/Vol]10 mg/dLNormal9-24[facility] Comment on above:Order Comment: Specimen Type: BLOOD SPECIMENOrdering Facility: [facility] Address:[address] [place] [address] Performed By: #### 96241-6 ####[facility] [id number] [address] [place] CBC panel Auto (Bld)on 50-80-5456Bskfrneruxi distribution width (RBC) [Ratio] 13.2 %Woxags37.5-15.0[facility] on above:Order Comment: Specimen Type: BLOOD SPECIMENOrdering Facility: [facility] Address:[address] [place], [place] [address]Performed By: #### 77627-3 ####[facility] LABCLIA [id number] [place] [address] [place] AMERICAHematocrit (Bld) [Volume fraction]39.0 %Yrzmke25.0-51.0[facility] on above:Order Comment: Specimen Type: BLOOD SPECIMENOrdering Facility: [facility] Address:[address] [place], [place] [address]Performed By: #### 07831- 2 ####[facility] LABIA [id number] [address] STATES OF AMERICAHemoglobin (Bld) [Mass/Vol]12.9 g/dLLow13.0-17.0[facility] on above:Order Comment: Specimen Type: BLOOD SPECIMENOrdering Facility: [facility] Address:[address] [place], [place] [address]Performed By: #### 43711-1 ####[facility]CLIA [id number] [address] OF [facility] MEDICAL CENTERMCH (RBC) [Entitic mass]32.4 pg Imwjmj89.0-34.0[facility] on above:Order Comment: Specimen Type: BLOOD SPECIMENOrdering Facility: [facility] Address:[address] [place], [place] [address]Performed By: #### 23192-7 ####[facility] LABIA [id number] [place] [address] [place] [facility] MEDICAL CENTERMCHC (RBC) [Mass/Vol]33.1 g/dL Tplbpg00.5-36.0[facility] on above:Order Comment: Specimen Type: BLOOD SPECIMENOrdering Facility: [facility] Address:[address] [place], [place] [address]Performed By: #### 46267-5 ####[facility] LABCLIA [id number] [place] [address] [place] AMERICAMCV (RBC) [Entitic vol]98.0 fL Jcnzbz31.0-100.0[facility] on above:Order Comment: Specimen Type: BLOOD SPECIMENOrdering Facility: [facility] Address:[address] [place], [place] [address]Performed By: #### 33771-1 ####[facility] LABIA [id number] [address] STATES OF AMERICANucleated RBC (Bld) [#/Vol] 10*3/uLNormal<0.01[facility] on above:Order Comment: Specimen Type: BLOOD SPECIMENOrdering Facility: [facility] Address:[address] [place], [place] [address]Performed By: #### 71112-6 ####[facility] LABIA [id number] [place] [address] [place] AMERICAPlatelet mean volume (Bld) [Entitic vol]9.7 fLNormal9.0-12.7CVeterans Health Administration on above: Order Comment: Specimen Type: BLOOD SPECIMENOrdering Facility: [facility] Address:[address] [place], [place] [address]Performed By: #### 06490- 2 ####[facility] LABIA [id number] [place] [address] [place] AMERICAPlatelets (Bld) [#/Vol]389 10*3/fMWtslsi411-990QzndbuspcMiami [facility] Hospital on above:Order Comment: Specimen Type: BLOOD SPECIMENOrdering Facility: [facility] Address:[address] [place], [place] [address]Performed By: #### 43728-3 ####[facility] LABIA [id number] [place] [address] [place] AMERICARBC (Bld) [#/Vol]3.98 10*6/uLLow 4.20-6.00[facility] on above:Order Comment: Specimen Type: BLOOD SPECIMENOrdering Facility: [facility] Address:[address] [place], [place] [address]Performed By: #### 53612-4 ####[facility] LABCLIA [id number] [place] [address] [place] AMERICAWBC (Bld) [#/Vol]11.15 10*3/uLHigh3.70-11.00[facility] on above:Order Comment: Specimen Type: BLOOD SPECIMENOrdering Facility: [facility] Address:[address] [place], [place] [address]Performed By: #### 39434-7 ####[facility] LABCLIA [id number] [place] [address] [place] OF AMERICACT LUMBAR SPINE WO IVCONon 38-86-3676US LUMBAR SPINE WO IVCONNormal [facility] Medical CenterMRI LUMBAR SPINE WO IVCONon 61-10-2778CYW LUMBAR SPINE WO IVCONNormalKettering Health Behavioral Medical CenterTHERAPY NTon 75-12-7294KDEEIEB NTNormal [facility] Medical CenterTHERAPY NTNormalCregency hospital toledoand [facility] POSTPROC EVALon 62-32-3760ZIVP POSTPROC EVALNormalCregency hospital toledoand [facility] HospitalANES PRE-OPon 25-64-7606QXAY PRE-OPNormalKettering Health Behavioral Medical CenterBRIEF OP NOTon 23-60-8495GKLZF OP NOTNormalCLancaster Municipal HospitalNMEMORIAL [facility] PROGon 08-19-2023 NURSING PROGNormalKettering Health Behavioral Medical CenterNURSING PROGNormalKettering Health Behavioral Medical CenterOPERATIVE NOon 11-40-2768SDMCRMDIO NONormalKettering Health Behavioral Medical CenterXR LUMBAR 2V AP/LATon 49-07-3665UG LUMBAR 2V AP/LATNormalCleveland [facility], [facility] HospitalXR LUMBAR 2V AP/LATNormalCleveland [facility], [facility] HospitalXR LUMBAR 2V AP/LAT NormalKettering Health Behavioral Medical CenterCNPNon 74-61-3181PFTSQrcvdxStmbqjblj Clinic ClevelandBasi metabolic 2000 panelon 22-31-3646Mgabi gap [Moles/Vol]13 mmol/L9 - 18 mmol/LCleveland ClinicCalcium [Mass/Vol]9.2 mg/dL8.5 - 10.2 mg/dLRochester ClinicChloride [Moles/Vol]100 mmol/L97 - 105 mmol/LCleveland ClinicCO2 [Moles/Vol]24 mmol/L22 - 30 mmol/LCleveland ClinicCreatinine [Mass/Vol]1.00 mg/dL0.73 - 1.22 mg/dLRochester ClinicGFR/1.73 sq M.predicted among non-blacks MDRD (S/P/Bld) [Vol rate/Area]83 mL/min/{1.73_m2}- PINFCSt. Mary's Medical CenterComment on above:Estimated Glomerular Filtration Rate (eGFR) is calculated using the 2020 CKD-EPI creatinine equation. This equation utilizes serum creatinine, sex, and age as parameters. The creatinine assay has traceable calibration to isotope dilution-mass spectrometry. Refer to KDIGO guidelines for clinical inte rpretation. In patients with unstable renal function, e.g. those with acute kidney injury, the eGFRmay not accurately reflect actual GFR.Glucose [Mass/Vol] 100 mg/fVEsqm69 - 99 mg/dLAdena Health Systemment on above:The [place] Diabetes Association (ADA) provides guidance for cutoff [...] Standards of Medical Care in Diabetes 2016, [place] Diabetes Association. Diabetes Care. 2016.39(Suppl 1). Interpretation and review of laboratory resultsAbnormalCleveland ClinicPotassium [Moles/Vol]4.1 mmol/L3.7 - 5.1 mmol/LCleveland ClinicSodium [Moles/Vol]137 mmol/L136 - 144 mmol/LCleveland ClinicUrea nitrogen [Mass/Vol]23 mg/dL9 - 24 mg/dLUc West Chester HospitalAni gap [Moles/Vol]13 mmol/LNormal9-18[facility] Comment on above:Order Comment: Specimen Type: BLOOD SPECIMEN [facility] Address: [address] [place], [place] [address]Performed By: #### 20175-8, 6-4, 80525-7 #### [facility] CLIA [id number] [place] [address] [place] AMERICACalcium [Mass/Vol]9.2 mg/dLNormal8.5-10.2 [facility] HospitalComment on above:Order Comment: Specimen Type: BLOOD SPECIMEN [facility] Address: [address] [place], [place] [address]Performed By: #### 33241-8, 2275-4, 12484-7 #### [facility] CLIA [id number] [address] [place] [address] [place] AMERICAChloride [Moles/Vol]100 mmol/LNormal 97-105AvGoshen General HospitalComment on above:Order Comment: Specimen Type: BLOOD SPECIMEN [facility] Address: [address] [place], [place] [address]Performed By: #### 19245-2, 2275-06, 22166-2 #### [facility] CLIA [id number] [address] [place] [address] [place] AMERICACO2 [Moles/Vol]24 mmol/PWioozl35-90Ggyp HospitalComment on above:Order Comment: Specimen Type: BLOOD SPECIMEN [facility] Address: [address] [place], [place] [address]Performed By: #### 66892-9, 2275-4, 54558-0 #### [facility] CLIA [id number] [address] [place] [address] [place] AMERICACreatinine [Mass/Vol]1.00 mg/dLNormal 0.73-1.22San Juan HospitalComment on above:Order Comment: Specimen Type: BLOOD SPECIMEN [facility] Address: [address] [place], [place] [address]Cgifgwoyq By: #### 57679-0, 2276-4, 11125-5 #### [facility] CLIA [id number] [address] [place] [address] [place] AMERICACreatinine and Glomerular filtration rate.predicted panel (S/P/Bld)83 mL/min/1.73m???Normal>=60[facility] HospitalComment on above:Order Comment: Specimen Type: BLOOD SPECIMEN [facility] Address: [address] [place] [address]Rowezh Comment: Estimated Glomerular Filtration Rate (eGFR) is [...] not accurately reflect actual GFR.Performed By: #### 73115-0, 2276-4, 62734-4 #### [facility] CLIA [id number] [facility] [place] [address] [place] AMERICAGlucose [Mass/Vol]100 mg/fKTowt73-23Rtqt HospitalComment on above:Order Comment: Specimen Type: BLOOD SPECIMEN [facility] Address: [address] [place], [place] [address]Yszddo Comment: The [place] Diabetes Association (ADA) provides guidance for cutoff [...] Standards of Medical Care in Diabetes 2016, [place] Diabetes Association. Diabetes Care. 2016.39(Suppl 1).Performed By: #### 77169-9, 2276-4, 07268-4 #### [facility] CLIA [id number] [address] [place] [address] [place] AMERICAPotassium [Moles/Vol]4.1 mmol/LNormal 3.7-5.1Avon HospitalComment on above:Order Comment: Specimen Type: BLOOD SPECIMEN [facility] Address: [address] [place], [place] [address]Performed By: #### 27197-1, 2276-4, 19401-3 #### [facility] CLIA [id number] [address] [place] [address] [facility] HOSPITALSodium [Moles/Vol]137 mmol/CAkndym123-026 Gayathri HospitalComment on above:Order Comment: Specimen Type: BLOOD SPECIMEN [facility] Address: [address] [place], [place] [address]Performed By: #### 89123-8, 2276-4, 80482-7 #### [facility] IA [id number] [address] [place] [address] [place] STATES OF AMERICAUrea nitrogen [Mass/Vol]23 mg/dLNormal 9-24Avon HospitalComment on above:Order Comment: Specimen Type: BLOOD SPECIMEN [facility] Address: [address] [place], [place] [address]Performed By: #### 02786-5, 2276-4, 28337-1 #### [facility] CLIA [id number] [address] [place] [address] [facility]ICAL CENTERCB W Auto Differential panel (Bld)on 51-92-9374Dfruxbwvp (Bld) [#/Vol]0.08 10*3/uLNormal<0.11Avon HospitalComment on above:Order Comment: Specimen Type: BLOOD SPECIMEN [facility] Address: [address] [place], [place] [address]Performed By: #### 92545-8 #### [facility] IA [id number] [address] [place] [address] [place] AMERICABasophils/100 WBC (Bld)0.9 %NormalAv HospitalComment on above:Order Comment: Specimen Type: BLOOD SPECIMEN [facility] Address: [address] [place], [place] [address]Performed By: #### 48032-5 #### [facility] IA [id number] [place] [address] [place] AMERICADifferential cell count method Nom (Bld) AutoNormalAvon HospitalComment on above:Order Comment: Specimen Type: BLOOD SPECIMEN [facility] Address: [address] [place], [place] [address]Performed By: #### 83940-8 #### [facility] IA [id number] [address] [place] [address] [place] AMERICAEosinophils (Bld) [#/Vol]0.43 10*3/uL Normal<0.46Av HospitalComment on above:Order Comment: Specimen Type: BLOOD SPECIMEN [facility] Address: [address] [place], [place] [address]Performed By: #### 57265-0 #### [facility] IA [id number] [address] [place] [address] [place] AMERICAEosinophils/100 WBC (Bld)4.6 %NormalAv HospitalComment on above:Order Comment: Specimen Type: BLOOD SPECIMEN [facility] Address: [address] [place], [place] [address]Performed By: #### 55925-9 #### [facility] IA [id number] [place] [address] [place] AMERICAErythrocyte distribution width (RBC) [Ratio]12.7 %Qupmxf26.5-15.0Av HospitalComment on above:Order Comment: Specimen Type: BLOOD SPECIMEN [facility] Address: [address] [place], [place] [address]Performed By: #### 04108-2 #### [facility] IA [id number] [address] [place] [address] [place] AMERICAHematocrit (Bld) [Volume fraction]46.3 % Cywuhj42.0-51.0Av HospitalComment on above:Order Comment: Specimen Type: BLOOD SPECIMEN [facility] Address: [address] [place], [place] [address]Performed By: #### 83250-7 #### [facility] [id number] [address] [place] [address] [place] AMERICAHemoglobin (Bld) [Mass/Vol]15.1 g/dL Adnujo34.0-17.0Av HospitalComment on above:Order Comment: Specimen Type: BLOOD SPECIMEN [facility] Address: [address] [place], [place] [address]Performed By: #### 61109-7 #### [facility] IA [id number] [address] [place] [address] [place] AMERICAImmature granulocytes (Bld) [#/Vol]0.21 10*3/uLHigh<0.10Avon HospitalComment on above:Order Comment: Specimen Type: BLOOD SPECIMEN [facility] Address: [address] [place], [place] [address]Performed By: #### 54273-3 #### [facility] IA [id number] [address] [place] [address] [place] AMERICAImmature granulocytes/100 WBC (Bld)2.3 % NormalAv HospitalComment on above:Order Comment: Specimen Type: BLOOD SPECIMEN [facility] Address: [address] [place], [place] [address]Performed By: #### 45997-3 #### [facility] IA [id number] [address] [place] [address] [place] AMERICALymphocytes (Bld) [#/Vol]1.59 10*3/uL Normal1.00-4.00Av HospitalComment on above:Order Comment: Specimen Type: BLOOD SPECIMEN [facility] Address: [address] [place], [place] [address]Performed By: #### 97967-0 #### [facility] CLIA [id number] [address] [place] [address] [place] AMERICALymphocytes/100 WBC (Bld)17.2 %NormalAv HospitalComment on above:Order Comment: Specimen Type: BLOOD SPECIMEN [facility] Address: [address] [place], [place] [address]Performed By: #### 22562-5 #### [facility] IA [id number] [address] [place] [address] [facility] (RBC) [Entitic mass]31.9 pgNormal 26.0-34.0Av HospitalComment on above:Order Comment: Specimen Type: BLOOD SPECIMEN [facility] Address: [address] [place], [place] [address]Performed By: #### 40209-7 #### [facility] IA [id number] [address] [place] [address] [facility] (RBC) [Mass/Vol]32.6 g/dLNormal 30.5-36.0Av HospitalComment on above:Order Comment: Specimen Type: BLOOD SPECIMEN [facility] Address: [address] [place], [place] [address]Performed By: #### 54039-9 #### [facility] IA [id number] [address] [place] [address] [facility] (RBC) [Entitic vol]97.9 fLNormal 80.0-100.0Av HospitalComment on above:Order Comment: Specimen Type: BLOOD SPECIMEN [facility] Address: [address] [place], [place] [address]Performed By: #### 02792-0 #### [facility] IA [id number] [address] [place] [address] [place] AMERICAMonocytes (Bld) [#/Vol]1.13 10*3/uLHigh <0.87Av HospitalComment on above:Order Comment: Specimen Type: BLOOD SPECIMEN [facility] Address: [address] [place], [place] [address]Performed By: #### 29145-2 #### [facility] IA [id number] [address] [place] [address] [place] AMERICAMonocytes/100 WBC (Bld)12.2 %NormalAv HospitalComment on above:Order Comment: Specimen Type: BLOOD SPECIMEN [facility] Address: [address] [place], [place] [address]Performed By: #### 51773-2 #### [facility] IA [id number] [address] [place] [address] [place] AMERICANeutrophils (Bld) [#/Vol]5.82 10*3/uL Normal1.45-7.50Av HospitalComment on above:Order Comment: Specimen Type: BLOOD SPECIMEN [facility] Address: [address] [place], [place] [address]Performed By: #### 40769-8 #### [facility] IA [id number] [address] [place] [address] [place] AMERICANeutrophils/100 WBC (Bld)62.8 %NormalAv HospitalComment on above:Order Comment: Specimen Type: BLOOD SPECIMEN [facility] Address: [address] [place], [place] [address]Performed By: #### 62632-9 #### [facility] IA [id number] [address] [place] [address] [place] AMERICANucleated RBC (Bld) [#/Vol]10*3/uLNormal <0.01Av HospitalComment on above:Order Comment: Specimen Type: BLOOD SPECIMEN [facility] Address: [address] [place], [place] [address]Performed By: #### 05355-2 #### [facility] IA [id number] [address] [facility] [place] [address] [place] AMERICANucleated RBC/100 WBC (Bld) [Ratio]0.0 /100 WBCNormalAvon HospitalComment on above:Order Comment: Specimen Type: BLOOD SPECIMEN [facility] Address: [address] [place], [place] [address]Performed By: #### 28913-3 #### [facility] IA [id number] [address] [place] [address] [place] AMERICAPlatelet mean volume (Bld) [Entitic vol] 9.6 fLNormal9.0-12.7Avon HospitalComment on above:Order Comment: Specimen Type: BLOOD SPECIMEN [facility] Address: [address] [place], [place] [address]Performed By: #### 41057-3 #### [facility] IA [id number] [address] [place] [address] [place] AMERICAPlatelets (Bld) [#/Vol]270 10*3/uLNormal 150-400Avon HospitalComment on above:Order Comment: Specimen Type: BLOOD SPECIMEN [facility] Address: [address] [place], [place] [address]Performed By: #### 84334-9 #### [facility] IA [id number] [address] [facility] [place] [address] [place] AMERICARBC (Bld) [#/Vol]4.73 10*6/uLNormal 4.20-6.00Avon HospitalComment on above:Order Comment: Specimen Type: BLOOD SPECIMEN [facility] Address: [address] [place], [place] [address]Performed By: #### 96984-1 #### [facility] IA [id number] [address] [facility] [place] [address] [place] AMERICAWBC (Bld) [#/Vol]9.26 10*3/uLNormal 3.70-11.00China Village HospitalComment on above:Order Comment: Specimen Type: BLOOD SPECIMEN [facility] Address: [address] [place], [place] [address]Performed By: #### 71384-2 #### [facility] CLIA [id number] [facility] [place] [place] [address] [facility] HOSPITALCONFIRM BLOOD TYPEon 03-86-1092VMMXKutmqp Avon HospitalComment on above:Order Comment: Specimen Type: BLOOD SPECIMEN [facility] Address: [address] [place], [place] [address]Performed By: #### CONABO #### [facility] CLIA [id number] [address] [place] [address] [facility] HOSPITALRh Nom (Bld)NegativeNormalCleveland ClinicComment on above:Order Comment: Specimen Type: BLOOD SPECIMEN [facility] Address: [address] [place], [place] [address]Performed By: #### CONABO #### [facility] CLIA [id number] [address] [place] [address] [facility] HOSPITALPerformed By: #### [id number] #### [facility] CLIA [id number] [address] [place] [address] [facility] COMPLETEon [id number] COMPLETE Ventricular Rate : 55 BPM Atrial Rate : 55 BPM P-R Interval : 132 ms QRS Duration : 96 ms Q-T Interval : 420 ms QTC Calculation(Bazett) : 401 ms Calculated P Court[place] : 57 degrees Calculated R [place] : 63 degrees Calculated T [place] : 73 degrees Sinus bradycardia Possible Left atrial enlargement Borderline ECG Confirmed by LEX ACUNA DO ([id number]) on 08/18/2023 10:08:16 AM NAME : BRADEN RODRIGUEZ PID : [id number] : 1955 Gender : Male Race : ORD : [id number] Procedure Date : Aug 06 2023 08:48:24 Edit Date : Aug 18 2023 10:08:19 Diagnosis: Sinus bradycardia Possible Left atrial enlargement Borderline ECG Confirmed by LEX ACUNA DO ([id number]) on 08/18/2023 10:08:16 AM Test Reason : HCS Location : 301 : [facility] Overread By : LEX ACUNA DO Edited By : LEX ACUNA DO Referred By : KATHERINE KEITH Acquired by : brigetteEphraim McDowell Fort Logan HospitalFerritin SerP-[facility] Centeron [id number] [Mass/Vol]322.8 ng/cUTauxhy73.3-565.7Avon HospitalComment on above:Order Comment: Specimen Type: BLOOD SPECIMEN Ordering Facility: [facility]. [facility] Address: [address] [place] [id number] By: #### 08244-2, 2276-4, 09621-0 #### [facility] CLIA [id number] [facility] [place] [address] [facility]ITALH[facility]ORY PHYSICALon [id number] PHYSICALHNO ID: [id number] Author: SANAM GILL PA-C Service: ? Author Type: Physician Quality Control Technician Type: H&P Filed: 08/06/2023 12:03 Note [...] over the last year. Relieving factors include [place] and steroids. Aggravating factors include repetitive movement. [...] Iron binding capacity panelon 08-06-2023 Iron [Mass/Vol]99 ug/tTDtvhwf19-676Kqvd HospitalComment on above:Order Comment: Specimen Type: BLOOD SPECIMEN Ordering Facility: [facility] Address: [address] [place], [place] [address]Dfuylfvqt By: #### 85025-3, 2276-4, 36591-0 #### [facility] CLIA [id number] [facility] [place] [address] [place] OF AMERICAIron binding capacity [Mass/Vol]252 ug/dL Zbbmyi110-516Uuiq HospitalComment on above:Order Comment: Specimen Type: BLOOD SPECIMEN [facility]ing Facility: [facility] Address: [address] [place], [place] [address]Performed By: #### 64652-6, 2276-4, 68764-4 #### [facility] CLIA [id number] [address] [place] [address] [place] OF AMERICAIron/TIBC [Molar ratio]39.3 %Normal 15.0-57.0San Juan HospitalComment on above:Order Comment: Specimen Type: BLOOD SPECIMEN [facility]ing Facility: [facility] Address: [address] [place], [place] [address]Performed By: #### 38064-3, 2276-4, 17812-7 #### [facility] CLIA [id number] [address] [place] [address] [place] OF AMERICALaboratory - Blood bankon 68-30-4492REX group Nom (Bld)OCleveland ClinicNo Panel Informationon 76-62-0725Wzrdlcyqu ClinicSTAPHYLOCOCCUS AUREUS AND MRSA SCREEN, PCR, NASALon 08-06-2023S. aureus and MRSA panel BARBARA+probe (Nose)Not detectedNormalPresbyterian Kaseman Hospital Comment on above:Order Comment: Specimen Type: SWAB [facility] Facility[facility] Address: [address] [place], [place] [address]Performed By: #### SAPCR #### [facility] CLIA [id number] [address] [place] [address] [id number] [place] [address] [place] OF AMERICATYPE AND SCREEN,30 DAYon 34-70-9834Zewfu group antibody screen QlNegativeUc West Chester HospitalABOONormalSan Juan HospitalComment on above:Order Comment: Specimen Type: BLOOD SPECIMEN [facility] Facility[facility] Address: [address] [place], [place] [address]Performed By: #### [id number] #### [facility] CLIA [id number] [address] [place] [address] [place] OF AMERICAHIstorical Ab Scr StatusNegativeNormal Uc West Chester HospitalComment on above:Order Comment: Specimen Type: BLOOD SPECIMEN [facility] Facility[facility] Address: [address] [place], [place] [address]Performed By: #### [id number] #### [facility] CLCO [id number] [address] [place] [address] [place] OF AMERICACNPNon 18-47-9736WALNMbcuctFzkbplvhn Clinic ClevelandCT LUMBAR SPINE WO IVCONon 50-26-6273DC LUMBAR SPINE WO IVCON* * *Final Report* * * DATE OF EXAM: May 04 2023 8:14AM [facility] 0508 - CT LUMBAR SPINE WO [...] caudal rib-bearing vertebra is counted as T12. Public Information Relations Manager (topogram) images: No significant additional findings Alignment: [...] crest and there are 5 lumbar-type vertebrae. [facility]: [facility] Transcribe Date/Time: May 04 2023 9:20A Dictated by : CLAIRE LAZAR MD This examination was interpreted and the report reviewed and electronically signed by: CLAIRE LAZAR MD on May 04 2023 9:32AM EST [id number] [facility] Lumbar spine [facility] 32-14-3589Xjcpqwcnz ClinicXR Lumbar spine Views W flexion and W extensionon 02-17-3575Oonslpkfy ClinicXR Thoracic and lumbar spine Views for scoliosis W standingon 69-11-4133Pkdedmrqo ClinicCreatinine (Bld) [Mass/Vol]Ordered By: Shae Guillory on 10-44-6477Xxbrilfgsb [Mass/Vol]1.0 mg/dL0.6-1.3FVeterans Health AdministrationComment on above:ER/ESD physician is notified/shown all ISTAT results.Critical values may be confirmed by laboratorytesting ifdeemed necessary by ER attending doctor.CT ABDOMEN W CONon 60-61-2671LK ABDOMEN W CON EXAMINATION: CT ABDOMEN W [...] Electronically authenticated by: WILTON NICHOLE Date: 2022-04-12 08:12[facility] NorthCREATININEon 45-94-4822Yrvagybxjc [Mass/Vol]0.80 mg/dLNormal 0.70-1.30Mary Rutan HospitalComment on above:Performed By: #### PSASC, VITAD #### [facility] [address] [address] [address] Max GrandeGFR-AF ITALIAN>60Normal>=60The [facility] Medical CenterComment on above:Performed By: #### PSASC, VITAD #### [facility] [address] [address] [address] Max GrandeGFR-NON AF ITALIAN>60Normal>=60The [facility] Medical CenterComment on above:Performed By: #### PSASC, VITAD #### [facility] [address] [address] [address] Max PeckXR ABD FLAT UP_PA Kuldip 80-21-2875PS ABD FLAT UP_PA CHACUTE ABDOMINAL SERIES WITH [...] Electronically authenticated by: EDENILSON KNIGHT Date: 2022-03-16 10:42[facility] NorthLIPID PROFILEon 97-46-3046TCEH-HDL RATIO NORMSEE BELOWNormal The [facility] Medical CenterComment on above:Result Comment: 3.3 - 4.4 LOW RISK 4.4 - 7.1 AVERAGE RISK 7.1 - 11.0 MODERATE RISK >11.0 HIGH RISKPerformed By: #### PSASC, VITAD #### [facility] [address] [address] [address] Max PeckCholesterol [Mass/Vol]163 mg/dLNormal<=200[facility] Comment on above:Performed By: #### PSASC, VITAD #### [facility] [address] [address] [address] Max PeckCholesterol in HDL [Mass/Vol]50 mg/tROiwbeh90-41Gnt [facility] CenterComment on above:Performed By: #### PSASC, VITAD #### [facility] [address] [place] [address] Dr. Max PeckCholesterol in LDL [Mass/Vol]100.0 mg/dLNoOhioHealth Hardin Memorial HospitalComment on above:Performed By: #### PSAPOP, VITAD #### [facility] [address] [place] [address] Dr. Max Gomezesterjanki.total/Cholesterol in HDL [Mass ratio]3.3 {ratio} NormalThe [facility] Medical CenterComment on above:Performed By: #### PSASC, VITAD #### [facility] [address] [place] [address] Dr. Max Moffett NORMAL> or = 60 mg/dl - LOW CARDIOVASCULAR RISK <40 mg/dl - HIGH CARDIOVASCULAR RISKSelect Medical Specialty Hospital - Cincinnati NorthComment on above:Performed By: #### PSAPOP, VITAD #### [facility] [address] [place] [address] Dr. Max Redman CALC NORMALSEE BELOWNoOhioHealth Hardin Memorial HospitalComment on above:Result Comment: <100 mg/dl OPTIMAL 100 - 129 mg/dl NEAR OR ABOVE OPTIMAL 130 - 159 mg/dl BORDERLINE HIGH 160 - 189 mg/dl HIGH >190 mg/dl VERY HIGH Performed By: #### PSAPOP, VITAD #### [facility] [address] [place] [address] Dr. Max PeckTriglyceride [Mass/Vol]65 mg/dLNormal<=150The [facility] Comment on above:Performed By: #### PSASC, VITAD #### [facility] [address] [place] [address] Dr. Max PeckVLDL CALC13.0 mg/dLNoOhioHealth Hardin Memorial HospitalComment on above: Performed By: #### PSASC, VITAD #### [facility] [address] [place] [address] Dr. Max PeckPROMykel 14(COMP METB)on 36-16-3136Eklqrlf [Mass/Vol]3.9 g/dLNormal 3.4-5.0The [facility] CenterComment on above:Performed By: #### PSASC, VITAD #### [facility] [address] [address] [address] Max PeckAlbumin/Globulin [Mass ratio]1.3 {ratio}NormalThe [facility] Medical CenterComment on above:Performed By: #### PSASC, VITAD #### [facility] [address] [address] [address] Max HillmanP [Catalytic activity/Vol]79 U/XLonxct19-901Kcc [facility] CenterComment on above:Performed By: #### PSASC, VITAD #### [facility] [address] [address] [address] Max HillmanT [Catalytic activity/Vol]24 U/RYsekpu51-21Iqh [facility] CenterComment on above:Performed By: #### PSASC, VITAD #### [facility] [address] [place] [address] Dr. Max Brockon gap [Moles/Vol]12.3 mmol/LNormalThe [facility] Comment on above:Performed By: #### PSASC, VITAD #### [facility] [address] [place] [address] Dr. Max PeckAST [Catalytic activity/Vol]25 U/XVytvgn83-22Xgp [facility]ana Hospitalment on above:Performed By: #### PSASC, VITAD #### [facility] [address] [place] [address] Dr. Max PeckBilirubin [Mass/Vol]1.4 mg/dLCritically high0.2-1.0The [facility] CenterComment on above:Performed By: #### PSASC, VITAD #### [facility] [address] [place] [address] Dr. Max PeckCalcium [Mass/Vol]9.1 mg/dLNormal8.5-10.1The [facility] Comment on above:Performed By: #### PSASC, VITAD #### [facility] [address] [place] [address] Dr. Max PeckChloride [Moles/Vol]100 mmol/MOpwzgq05-162Mxc [facility] Comment on above:Performed By: #### PSASC, VITAD #### [facility] [address] [address] [address] Max PeckCO2 [Moles/Vol]30.7 mmol/APauwir69.0-32.0[facility] Comment on above:Performed By: #### PSASC, VITAD #### [facility] [address] [place] [address] Dr. Max PeckCreatinine [Mass/Vol]0.86 mg/dLNormal0.70-1.30[facility] Rut[facility] HospitalComment on above:Performed By: #### PSASC, VITAD #### [facility] [address] [place] [address] Dr. Max GrandeGFR-AF KPANYKWF41 mL/min/1.43s3Sarrkj>=60[facility] Comment on above:Performed By: #### PSAPOP, VITAD #### [facility] [address] [place] [address] Dr. Max Gonzalez-NON AF YQLMPHRA94 mL/min/1.88w0Dezluy>=60The [facility] CenterComment on above:Performed By: #### PSAPOP, VITAD #### [facility] [address] [place] [address] Dr. Max PeckGlobulin (S) [Mass/Vol]3.1 g/dLNormalThe [facility] CenterComment on above:Performed By: #### PSASC, VITAD #### [facility] [address] [place] [address] Dr. Max PeckGlucose [Mass/Vol]102 mg/kAGyrhms97-727VgcMary Rutan Hospital Comment on above:Performed By: #### PSASC, VITAD #### [facility] [address] [place] [address] Dr. Max PeckPotassium [Moles/Vol]4.0 mmol/LNormal3.5-5.1[facility] Comment on above:Performed By: #### PSASC, VITAD #### [facility] [address] [place] [address] Dr. Max PeckProtein [Mass/Vol]7.0 g/dLNormal6.4-8.2The [facility] Comment on above:Performed By: #### PSASC, VITAD #### [facility] [address] [address] [address] Max PeckSodium [Moles/Vol]139 mmol/UQylsjt328-555Egr [facility] Comment on above:Performed By: #### PSASC, VITAD #### [facility] [address] [address] [address] Max PeckUrea nitrogen [Mass/Vol]10.0 mg/dLNormal7.0-18.0The [facility] CenterComment on above:Performed By: #### PRUDENCIO, VITAD #### [facility] [address] [place] [address] Dr. Max Sherwood nitrogen/Creatinine [Mass ratio]11.6 mg/mgNoOhioHealth Hardin Memorial HospitalComment on above:Performed By: #### PRUDENCIO, VITAD #### [facility] [address] [place] [address] Dr. Max PeckXR CSPINE MIN 4 VIEWSon 08-29-5777MD CSPINE MIN 4 VIEWS EXAMINATION: XR CSPINE [...] Electronically authenticated by: WILTON NICHOLE Date: 2022-01-19 07:14NoOhioHealth Hardin Memorial HospitalHEPATITIS PANEL, ACUTEon 31-18-7566RByKw ScreenNegativeNormal NegativeThe Perkinston HospitalComment on above:Performed By: #### PSASC, VITAD #### [facility] [address] [place] [address] Dr. Max PeckHCV AB<0.7Iozesj3.0-0.9The [facility] CenterComment on above: Performed By: #### PSASC, VITAD #### [facility] [address] [place] [address] Dr. Max Perla A Ab, IgMNegativeNormalNegativeThe [facility] CenterComment on above:Performed By: #### PSASC, VITAD #### [facility] [address] [place] [address] Dr. Max Perla B Core Ab, IgMNegativeNormalNegativeMary [facility]an Hospital Comment on above:Performed By: #### PSASC, VITAD #### [facility] [address] [place] [address] Dr. Max PeckInterpretation:CommentNormalThe [facility] CenterComcorewell health butterworth hospital on above:Result Comment: Negative Not infected with HCV, unless recent infection is suspected or other evidence exists to indicate HCV infection.Performed By: #### PSASC, VITAD #### [facility] [address] [place] [address] Dr. Max PeckINSULINon 49-85-4590Wshjkeg49.1 uIU/mLNormal2.6-24.9The [facility] CenterComment on above:Performed By: #### PSASC, VITAD #### [facility] [address] [place] [address] Dr. Max PeckTESTOSTERONE, TOTALon 82-56-7426Agpkjgdizide [Mass/Vol]766 ng/dL Vwujuc503-777Wux [facility] CenterComment on above:Result Comment: Adult male reference interval is based on a population of healthy nonobese males (BMI <30) between 19 and 39 years old. yeni Espinal.al. JCEM 2017,102;0679-3015. PMID: [id number].Performed By: #### PSASC, VITAD #### [facility] [address] [place] [address] Dr. Yilan ChangCBC AUTO DIFFon 24-71-0927CMOW #0.0 103/ulNormal0.0-0.1The [facility] Urbana Hospitalment on above:Performed By: #### PSAPOP, VITAD #### [facility] [address] [place] [address] Dr. Max PeckBasophils/100 WBC (Bld)0.4 %Normal0.2-2.0[facility] Comment on above:Performed By: #### PSASC, VITAD #### [facility] [address] [place] [address] Dr. Max Amanda #0.0 103/ulNormal0.0-0.7The [facility] CenterComment on above: Performed By: #### PSASC, VITAD #### [facility] [address] [place] [address] Dr. Max Grandeosinophils/100 WBC (Bld)0.3 %Critically low0.9-7.0The [facility] Medical CenterComment on above:Performed By: #### PSAPOP, VITAD #### [facility] [address] [place] [address] Dr. Max Granderythrocyte distribution width (RBC) [Ratio]12.5 %Qasobv08.0-15.0 The [facility]rbana Hospitalment on above:Performed By: #### PSAPOP, VITAD #### [facility] [address] [place] [address] Dr. Max PeckHematocrit (Bld) [Volume fraction]41.5 %Critically low42.0-54.0 [facility] Hospitalment on above:Performed By: #### PSASC, VITAD #### [facility] [address] [place] [address] Dr. Max PeckHemoglobin (Bld) [Mass/Vol]14.0 g/uBQkomzo76.0-18.0The [facility]ana Hospitalment on above:Performed By: #### PSASC, VITAD #### [facility] [address] [place] [address] Dr. Max Encinas #0.09 10e3/ulCritically high0.00-0.03The [facility] Comment on above:Performed By: #### PRUDENCIO, VITAD #### [facility] [address] [place] [address] Dr. Max Encinas %0.9 %Critically high0.0-0.5The [facility] CenterComment on above:Performed By: #### PRUDENCIO, VITAD #### [facility] [address] [place] [address] Dr. Max García #2.6 103/ulNormal1.2-3.8The [facility] CenterComment on above:Performed By: #### PRUDENCIO, VITAD #### [facility] [address] [place] [address] Dr. Max Landahocytes/100 WBC (Bld)25.0 %Zuhuwt49.5-60.0The [facility] CenterComment on above:Performed By: #### PRUDENCIO, VITAD #### [facility] [address] [place] [address] Dr. Max MoralesCLEVELAND CL[facility] DIFF REQNONormalThe [facility] CenterComment on above: Performed By: #### PRUDENCIO, VITAD #### [facility] [address] [place] [address] Dr. Max Flores (RBC) [Entitic mass]32.6 deWhnyfz81.9-34.0The [facility] CenterComment on above:Performed By: #### PRUDENCIO, VITAD #### [facility] [address] [place] [address] Dr. Max Flores (RBC) [Mass/Vol]33.7 g/mEPrypvo87.9-35.2The [facility] CenterComment on above:Performed By: #### PRUDENCIO, VITAD #### [facility] [address] [place] [address] Dr. Max Flores (RBC) [Entitic vol]96.7 fLCritically high80.0-94.0The [facility] CenterComment on above:Performed By: #### NINASC, VITAD #### [facility] [address] [place] [address] Dr. Max Fay #1.2 103/ulCritically high0.3-0.8The [facility] Comment on above:Performed By: #### PSASC, VITAD #### [facility] [address] [place] [address] Dr. Max Crocytes/100 WBC (Bld)11.1 %Normal1.7-12.0The [facility] Comment on above:Performed By: #### PSASC, VITAD #### [facility] [address] [place] [address] Dr. Max Champion #6.4 103/ulNormal1.4-6.5The [facility] CenterComment on above:Performed By: #### PSASC, VITAD #### [facility] [address] [place] [address] Dr. Max Pattersonutrophils/100 WBC (Bld)62.3 %Kdjjif75.0-75.0The [facility] CenterComment on above:Performed By: #### PSASC, VITAD #### [facility] [address] [place] [address] Dr. Max Montgomery mean volume (Bld) [Entitic vol]9.6 fLNormal9.5-13.5The [facility] CenterComment on above:Performed By: #### PSASC, VITAD #### [facility] [address] [place] [address] Dr. Max PeckPLT323 103/moUbihus244-797Jqc [facility] CenterComment on above: Performed By: #### PSASC, VITAD #### [facility] [address] [place] [address] Dr. Max PeckRBC4.29 106/ulCritically low4.70-6.10The [facility] CenterComment on above:Performed By: #### PSASC, VITAD #### [facility] [address] [place] [address] Dr. Max PeckWBC10.3 103/ulNormal4.0-11.0The [facility] CenterComment on above:Performed By: #### PSASC, VITAD #### [facility] [address] [place] [address] Dr. Max Trejo THYROXINE INDEX T7on 10-53-2842GGJ2.63Rskvwd2.30-4.50The [facility] CenterComcorewell health butterworth hospital on above:Performed By: #### TSH, URIC, T7, LIPID, CMP #### [facility] [address] [address] [address] Max PeckT3U36.0 %Nlwkho74.0-40.0The [facility] Medical CenterComment on above: Performed By: #### TSH, URIC, T7, LIPID, CMP #### [facility] [address] [place] [address] Dr. Max PeckT4 [Mass/Vol]6.70 ug/dLNormal4.50-12.10The [facility] Comment on above:Performed By: #### TSH, URIC, T7, LIPID, CMP #### [facility] [address] [place] [address] Dr. Max PeckGLYCOHEMOGLOBIN A1Con 19-33-4788FAY RECOMMENDATIONSEE BELOWNormal The [facility] Medical CenterComcorewell health butterworth hospital on above:Result Comment: ADA RECOMMENDED LIMIT 4.0 - 6.0 ADA THERAPEUTIC TARGET < 7.0 ACTION SUGGESTED > 7.0Performed By: #### PSASC, VITAD #### [facility] [address] [place] [address] Dr. Max PeckGlucose [Mass/Vol]97 mg/dLNormalThe [facility] CenterComcorewell health butterworth hospital on above:Performed By: #### PSASC, VITAD #### [facility] [address] [place] [address] Dr. Max PeckHbA1c (Bld) [Mass fraction]5.0 %Normal4.5-6.2The [facility] CenterComment on above:Performed By: #### PSASC, VITAD #### [facility] [address] [place] [address] Dr. Max PeckLIPID PROFILEon 54-37-2806WXSC-HDL RATIO NORMSGenesis HospitalComment on above:Result Comment: 3.3 - 4.4 LOW RISK 4.4 - 7.1 AVERAGE RISK 7.1 - 11.0 MODERATE RISK >11.0 HIGH RISKPerformed By: #### TSH, URIC, T7, LIPID, CMP #### [facility] [address] [address] [address] Max PeckCholesterol [Mass/Vol]221 mg/dLCritically high<=200The [facility] on above:Performed By: #### TSH, URIC, T7, LIPID, CMP #### [facility] [address] [address] [address] Max Gomezesterol in HDL [Mass/Vol]41 mg/vNRiyntc33-66HtwCleveland Clinic Medina Hospital on above:Performed By: #### TSH, URIC, T7, LIPID, CMP #### [facility] [address] [place] [address] Dr. Max Gomezesterol in LDL [Mass/Vol]157.2 mg/dLSelect Medical Specialty Hospital - [facility] NorthComcorewell health butterworth hospital on above:Performed By: #### TSH, URIC, T7, LIPID, CMP #### [facility] [address] [place] [address] Dr. Max Hendrickson.total/Cholesterol in HDL [Mass ratio]5.4 {ratio} NormalCleveland Clinic Medina Hospital on above:Performed By: #### TSH, URIC, T7, LIPID, CMP #### [facility] [address] [place] [address] Dr. Max Moffett NORMAL> or = 60 mg/dl - LOW CARDIOVASCULAR RISK <40 mg/dl - HIGH CARDIOVASCULAR RISKThe [facility] on above:Performed By: #### TSH, URIC, T7, LIPID, CMP #### [facility] [address] [place] [address] Dr. Max PeckLDL CALC NORMALSEE [facility] HospitalComcorewell health butterworth hospital on above:Result Comment: <100 mg/dl OPTIMAL 100 - 129 mg/dl NEAR OR ABOVE OPTIMAL 130 - 159 mg/dl BORDERLINE HIGH 160 - 189 mg/dl HIGH >190 mg/dl VERY HIGH Performed By: #### TSH, URIC, T7, LIPID, CMP #### [facility] [address] [address] [address] Max PeckTriglyceride [Mass/Vol]114 mg/dLNormal<=150The [facility] Comment on above:Performed By: #### TSH, URIC, T7, LIPID, CMP #### [facility] [address] [address] [address] Max PeckVLDL CALC22.8 mg/dLNormalThe [facility] CenterComment on above: Performed By: #### TSH, URIC, T7, LIPID, CMP #### [facility] [address] [address] [address] Max Chance 14(COMP METB)on 52-94-9763Bhifbsg [Mass/Vol]3.9 g/dLNormal 3.4-5.0The [facility] CenterComment on above:Performed By: #### TSH, URIC, T7, LIPID, CMP #### [facility] [address] [address] [address] Max PeckAlbumin/Globulin [Mass ratio]1.3 {ratio}NormalThe [facility] CenterComment on above:Performed By: #### TSH, URIC, T7, LIPID, CMP #### [facility] [address] [address] [address] Max Goldstein [Catalytic activity/Vol]63 U/WYnaqkl17-001Yoh [facility] CenterComment on above:Performed By: #### TSH, URIC, T7, LIPID, CMP #### [facility] [address] [address] [address] Max Yung [Catalytic activity/Vol]75 U/LCritically vcmi90-98Vfz [facility] CenterComment on above:Performed By: #### TSH, URIC, T7, LIPID, CMP #### [facility] [address] [address] [address] Max Garduno gap [Moles/Vol]8.8 mmol/LNormalThe [facility] CenterComment on above:Performed By: #### TSH, URIC, T7, LIPID, CMP #### [facility] [address] [address] [address] Max PeckAST [Catalytic activity/Vol]41 U/LCritically ljua87-97Lbg [facility] CenterComment on above:Performed By: #### TSH, URIC, T7, LIPID, CMP #### [facility] [address] [address] [address] Max PeckBilirubin [Mass/Vol]0.8 mg/dLNormal0.2-1.0The [facility] Comment on above:Performed By: #### TSH, URIC, T7, LIPID, CMP #### [facility] [address] [place] [address] Dr. Max PeckCalcium [Mass/Vol]9.1 mg/dLNormal8.5-10.1The [facility] Comment on above:Performed By: #### TSH, URIC, T7, LIPID, CMP #### [facility] [address] [place] [address] Dr. Max PeckChloride [Moles/Vol]102 mmol/YXsmkkc29-426Cra [facility] Comment on above:Performed By: #### TSH, URIC, T7, LIPID, CMP #### [facility] [address] [place] [address] Dr. Max PeckCO2 [Moles/Vol]33.8 mmol/LCritically high21.0-32.0The [facility] CenterComment on above:Performed By: #### TSH, URIC, T7, LIPID, CMP #### [facility] [address] [place] [address] Dr. Max PeckCreatinine [Mass/Vol]0.80 mg/dLNormal0.70-1.30The [facility] CenterComment on above:Performed By: #### TSH, URIC, T7, LIPID, CMP #### [facility] [address] [place] [address] Dr. Santana ChangEGFR-AF ITALIAN>60Normal>=60The [facility] CenterComment on above:Performed By: #### TSH, URIC, T7, LIPID, CMP #### [facility] [address] [address] [address] Max GrandeGFR-NON AF ITALIAN>60Normal>=60The [facility] CenterComment on above:Performed By: #### TSH, URIC, T7, LIPID, CMP #### [facility] [address] [place] [address] Dr. Max PeckGlobulin (S) [Mass/Vol]2.9 g/dLNormalThe [facility] CenterComment on above:Performed By: #### TSH, URIC, T7, LIPID, CMP #### [facility] [address] [place] [address] Dr. Max PeckGlucose [Mass/Vol]99 mg/eCNcpocs88-139LmeMary [facility] Comment on above:Performed By: #### TSH, URIC, T7, LIPID, CMP #### [facility] [address] [place] [address] Dr. Max PeckPotassium [Moles/Vol]3.6 mmol/LNormal3.5-5.1The [facility] Comment on above:Performed By: #### TSH, URIC, T7, LIPID, CMP #### [facility] [address] [place] [address] Dr. Max PeckProtein [Mass/Vol]6.8 g/dLNormal6.4-8.2The [facility] Comment on above:Performed By: #### TSH, URIC, T7, LIPID, CMP #### [facility] [address] [place] [address] Dr. Max PeckSodium [Moles/Vol]141 mmol/XJnghlz098-380Kai [facility] Comment on above:Performed By: #### TSH, URIC, T7, LIPID, CMP #### [facility] [address] [place] [address] Dr. Max PeckUrea nitrogen [Mass/Vol]16.0 mg/dLNormal7.0-18.0The [facility] CenterComment on above:Performed By: #### TSH, URIC, T7, LIPID, CMP #### [facility] [address] [address] [address] Max PeckUrea nitrogen/Creatinine [Mass ratio]20.0 mg/mgNoOhioHealth Hardin Memorial HospitalComment on above:Performed By: #### TSH, URIC, T7, LIPID, CMP #### [facility] [address] [place] [address] Dr. Max NanceHobehzad 27-96-5981YHT5.544 uIU/mLNormal0.358-3.740The [facility] CenterComcorewell health butterworth hospital on above:Performed By: #### TSH, URIC, T7, LIPID, CMP #### [facility] [address] [place] [address] Dr. Max PeckURIC ACID SERUMon 50-11-5892Raskq [Mass/Vol]5.4 mg/dLNormal 3.5-7.2The [facility] CenterComment on above:Performed By: #### TSH, URIC, T7, LIPID, CMP #### [facility] [address] [place] [address] Dr. Max PeckVITAMIN D 25 OHon 47-44-4738JSN D 25-OH51.2 ng/mLNormalThe [facility] CenterComcorewell health butterworth hospital on above:Performed By: #### PRUDENCIO, VITAD #### [facility] [address] [place] [address] Dr. Max Hernandez RANGESSEE BELOWSelect Medical Specialty Hospital - Cincinnati NorthComment on above: Result Comment: <20 ng/mL Vit D deficient 20 - <30 ng/mL Vit D insufficient 30 - 100 ng/mL Vit D sufficient >100 ng/mL Potential ToxicityPerformed By: #### PSASC, VITAD #### [facility] [address] [place] [address] Dr. Max PeckCardiovascular Lab Reporton 83-71-9565Zidpfmbsyzzbsp Lab Report [facility] Patient Name: Braden Rodriguez [facility] MR #: [id number] Physician: Domenic Kohler MD Department of Service Date: 07/31/2020 Medicine Birthdate: 1955 Division of Room #: CC Cardiology Adult Cardiovascular Services [facility] [address] [id number] Cardiovascular Laboratory Report The patient is a [...] Kohler MD Date Trans: 09/01/2020 10:51 A/sergio DN_JN:[id number] cc: Ester Cain M.D. [id number] [facility] [id number] Ridge Medical CenterLUMBAR SPINE 2 OR 3 VIEWSon 56-31-4751WUUZKT SPINE 2 OR 3 VIEWSSTUDY: LUMBAR SPINE 2 OR 3 VIEWS; 05/19/2019 9:49 am INDICATION: PAIN. COMPARISON: None. ACCESSION NUMBER(S): [id number] ORDERING CLINICIAN: Edgar Fairchild FINDINGS: No fracture or subluxation of the lumbar spine. L3-L5 laminectomy defects. Moderate to severe multilevel degenerative disc height loss with endplate sclerosis and osteophyte formation. Multilevel facet arthropathy. Moderate dextroscoliosis centered at L2. IMPRESSION: Severe degenerative changes of the lumbar spine. L3-L5 laminectomy defects.NormalSt. [facility] Foundation [facility] Vital Signs Date TimeVital SignValuePerforming StekbtypjJzfnajdq75-64-3972 16:07-0400Body vxtnmuwykkf91.71 [degF]Mahamed Gray DPM Work Phone: [facility] CenterZygxzsihxw57-52-3583 16:07-0400Diastolic blood bjnfzirh46 mm[Hg]Mahamed Gray DPM Work Phone: [facility] CenterMelscifqfo33-11-5290 16:07-0400Heart rate48 /min Mahamed Gray DPM Work Phone: [facility] CenterMbmgxhlflg36-58-1645 16:07-0400Systolic blood hyivpikq811 mm[Hg]Mahamed Gray DPM Work Phone: [facility] CenterLmkrghphmt15-80-9986 10:36-0400Body bixndq042.88 cmEster Cain MD Work Phone: [phone] [place], [place] [address]07-30-2025 10:36-0400 Body mass index (BMI) [Ratio]28.5 kg/o3FgxhqecEster Cain MD Work Phone: [phone] [place], [place] [address]07-30-2025 10:36-0400 Body lptdnzojlok84.4 [degF]Ester Cain MD Work Phone: [phone]07-30-2025 10:36-0400 Body .25 kgEster Cain MD Work Phone: [phone]07-30-2025 10:36-0400 Diastolic blood nmpvvfeq29 mm[Hg]Ester Cain MD Work Phone: 1(527)412-[address] [place], [place] [address]07-30-2025 10:36-0400 Heart rate50 /minDinez Cain MD Work Phone: [phone] [place], [place] [address]07-30-2025 10:36-0400 SaO2% (BldA) [Mass fraction]100 %Ester Cain MD Work Phone: [phone] [place], [place] [address]07-30-2025 10:36-0400 Systolic blood tvaububq864 mm[Hg]Ester Cain MD Work Phone: [phone]07-11-2025 10:41-0400 Body sdahzgkszgo86.71 [degF]Mahamed Gray DPM Work Phone: [facility] CenterRlvjhfyrcn97-93-7069 10:41-0400Diastolic blood kbxbhvgi18 mm[Hg]Mahamed Gray DPM Work Phone: [facility] CenterPkxyalkckz97-52-8589 10:41-0400Heart rate58 /min Mahamed Gray DPM Work Phone: [facility] CenterOaxdstgidm57-91-5288 10:41-0400Systolic blood pcnobncs03 mm[Hg]Mahamed Gray DPM Work Phone: [facility] CenterCqvdtuanee84-28-0639 09:53-0400Body temperature 98.29 [degF]Nurse [address]04-09-2025 09:53-0400Diastolic blood qpnujgea62 mm[Hg]Nurse [address]04-09-2025 09:53-0400Heart rate59 /min Nurse [address]04-09-2025 09:53-0526GjK5% (BldA) [Mass fraction]97 % Nurse [address]04-09-2025 09:53-0400Systolic blood obpnvash393 mm[Hg] Nurse [address]03-30-2025 20:51-7385XwO6% (BldA) [Mass fraction]96 % ESTER [facility] TroyComment on above:Order Comment: Specimen Type: ARTERIAL BLOOD SPECIMENOrdering Facility: [facility] Address: [address] [place], [place] [address]Performed By: #### ALLBG ####[facility] LABCLIA [id number] [place] [address] [place] EOIHSPY05-71-6795 11:13-0500Body height 182.9 cmKatherine Ketih MD Work Phone: [facility]03-05-2025 11:13-0500Body mass index (BMI) [Ratio]27.8 kg/f1AqiiphlKatherine Keith MD Work Phone: [facility]03-05-2025 11:13-0500Body reulix33.99 kgKatherine Keith MD Work Phone: 1([phone]) 203-268728 [address]05-2025 11:13-0500Diastolic blood hvijmkiq31 mm[Hg]Katherine Keith MD Work Phone: [phone]) [phone] [address]05-2025 11:13-0500Heart rate73 /min Katherine Keith MD Work Phone: [address] [address]-05-2025 11:13-0500Respiratory rate 19 /minDritu Keith MD Work Phone: [address] [address]-05-2025 11:13-0500Systolic blood aypciefk290 mm[Hg]Katherine Keith MD Work Phone: [address] [address]-05-2025 08:41-0500Body vyijxv832.9 cmAjack Boss MD Work Phone: [phone]03-05-2025 08:41-0500Body mass index (BMI) [Ratio]28.79 kg/f8NqwwtRhona Boss MD Work Phone: [phone] [address]-05-2025 08:41-0500Body temperature 97 [degF]Rhona Boss MD Work Phone: [phone] [address]-05-2025 08:41-0500Body .3 kgRhona Boss MD Work Phone: [phone] [address]-05-2025 08:41-0500Diastolic blood yzlkxvxi26 mm[Hg]Rhona Boss MD Work Phone: [phone] [address]-05-2025 08:41-0500Heart rate67 /min Rhona Boss MD Work Phone: [phone] [address]-05-2025 08:41-5307CrN4% (BldA) [Mass fraction]100 %Rhona Boss MD Work Phone: [phone] [address]-05-2025 08:41-0500Systolic blood nsmenojw984 mm[Hg]Rhona Boss MD Work Phone: [facility]11-05-2024 13:17-0500Body prnopa445.9 cmKatherine Keith MD Work Phone: [facility]11-05-2024 13:17-0500Body mass index (BMI) [Ratio]27.8 kg/a5OndnzyjKatherine Keith MD Work Phone: [facility]11-05-2024 13:17-0500Body bydbyn79.99 kgKtaherine Keith MD Work Phone: [address] [place] [address]-05-2024 13:17-0500Diastolic blood uvhaoxgw28 mm[Hg]Katherine Keith MD Work Phone: [address] [address]-05-2024 13:17-0500Heart rate84 /min Katherine Keith MD Work Phone: [address] [address]-05-2024 13:17-0500Systolic blood jplvmzpe897 mm[Hg]Katherien Keith MD Work Phone: [facility]09-04-2024 14:16-0400Body hzisrf077.9 cmKatherine Keith MD Work Phone: [facility]09-04-2024 14:16-0400Body mass index (BMI) [Ratio]27.84 kg/y0TrjgjfeKatherine Keith MD Work Phone: [facility]09-04-2024 14:16-0400Body .1 kgKatherine Keith MD Work Phone: [address] [place] [address]-04-2024 14:16-0400Diastolic blood nbtbffor99 mm[Hg]Katherine Keith MD Work Phone: [address] [address]-04-2024 14:16-0400Heart rate71 /min Katherine Keith MD Work Phone: [address] [address]-04-2024 14:16-0400Respiratory rate 18 /minDritu Keith MD Work Phone: [facility]09-04-2024 14:16-9481PuT0% (BldA) [Mass fraction]100 %Katherine Keith MD Work Phone: [facility] HospitalComment on above:room kxn21-47-7555 14:16-0400Systolic blood hnwiolbz635 mm[Hg]Katherine Keith MD Work Phone: [facility]09-03-2024 13:43-0400Blood Pressure LocationMichael NILL [phone]-UdgskPar[facility]09-03-2024 13:43-0400Diastolic blood yhauuvkn33 mm[Hg]Camryn NILL [phone]-LbqbjParma [facility] Hospital09-03-2024 13:43-0400Heart rate72 /minMichael NILL [phone]-CkmlwParma Community [facility] Hospital09-03-2024 13:43-0400Respiratory rate16 /minMichael NILL [phone]-DmethParma Community [facility] Hospital09-03-2024 13:43-0400Systolic blood mm[Hg]Camryn NILL 647-2023Hnwkts-SkyrdParma Community General Hospital05-29-2024 09:43-0400Body ibornu985.9 cmPacc 1 Other Phone: [facility]05-29-2024 09:43-0400Body mass index (BMI) [Ratio]26.43 kg/m2Pacc 1 Other Phone: [facility]05-29-2024 09:43-0400Body temperature 98.1 [degF]Pacc 1 Other Phone: [facility]05-29-2024 09:43-0400Body .4 kgPacc 1 Other Phone: [facility]05-29-2024 09:43-0400Diastolic blood ivwcksdv40 mm[Hg]Pacc 1 Other Phone: [facility]05-29-2024 09:43-0400Heart rate56 /minPacc 1 Other Phone: [facility]05-29-2024 09:43-0400Respiratory rate 18 /minPacc 1 Other Phone: [facility]05-29-2024 09:43-4395VqQ6% (BldA) [Mass fraction]100 %Pacc 1 Other Phone: [facility]05-29-2024 09:43-0400Systolic blood akcgdktx995 mm[Hg]Pacc 1 Other Phone: [facility]02-21-2024 11:31-0500Body .9 cmKatherine Keith MD Work Phone: [facility]02-21-2024 11:31-0500Body .5 kgKatherine Keith MD Work Phone: [facility]02-21-2024 11:31-0500Diastolic blood pnjimysu12 mm[Hg]Katherine Keith MD Work Phone: [facility]02-21-2024 11:31-0500Heart rate78 /min Katherine Keith MD Work Phone: [facility]02-21-2024 11:31-3852VyK7% (BldA) [Mass fraction]96 %Katherine Keith MD Work Phone: [facility]02-21-2024 11:31-0500Systolic blood puqzyvnx390 mm[Hg]Katherine Keith MD Work Phone: [facility]08-23-2023 10:15-0400Blood Pressure LocationKathy Lue [facility]08-23-2023 10:15-0400Diastolic blood toxzobti30 mm[Hg]Shae Lue [facility]08-23-2023 10:15-0400Heart rate73 /minKathy Lue [facility]08-23-2023 10:15-0400Systolic blood jocwirdu424 mm[Hg]Shae Lue [facility]08-21-2023 06:50-0400Body hzupys760.88 cmMD Ester Hoy Work Phone: [facility]08-21-2023 06:50-0400 Body kfhgfu99.91 kgMD Ester Hoy Work Phone: [facility]06-28-2023 07:45-0400 Blood Pressure LocationKathy Lue [facility]06-28-2023 07:45-0400Diastolic blood qwzlebnf37 mm[Hg]Shae Lue [facility]06-28-2023 07:45-0400Heart rate51 /minKathy Lue [facility]06-28-2023 07:45-0400Respiratory rate16 /minKathy Lue [facility]06-28-2023 07:45-0400Systolic blood dpccotiu150 mm[Hg]Shae Lue [facility]01-25-2023 15:00-0500Blood Pressure LocationMichael NILL [facility] Dfxeamvf62-38-1330 15:00-0500Diastolic blood mm[Hg]Camryn NILL General Surgery Oymjsner61-06-6324 15:00-0500Heart rate 80 /minMichael NILL [facility] Surgery Loyfwxwo46-15-5784 15:00-0500 Respiratory rate16 /minMichael NILL [facility] Surgery Pgpqnoxs72-26-9034 15:00-0500Systolic blood mm[Hg]Camryn NILL [facility] [place] Encounters Encounter DateEncounter TypeCare ProviderFacilityStart: 01-14-2025 End: 70-18-5585Hseywv flowsheetEugene R Kubitz DPM Work Phone: [facility]iatryStart: 01-14-2025 End: 83-40-5147Gimfnf flowsheetEugene R Kubitz DPM Work Phone: NOQE [facility] PodiatryStart: 01-14-2025 End: 41-88-1170qsnplnarigTBGVAN R KUBITZNot AvailableStart: 01-05-2025 End: 89-94-6258pbudkoohfkYjsjjrp R NILLFacility:CD:[id number]: 12-24-2024 End: 40-58-3432jfthkbygqqKFTNOB [facility] Start: 11-23-2024 End: 63-98-0529gieipphclaIvpubwy R NILLFacility: [place]vueStart: 11-23-2024 End: 16-49-7825Vdkvgrh encounter procedureMichael R NILL [phone] [place] Start: 10-06-2024 End: 08-76-4640Zwuvcd outpatient visit 15 minutesEugene R Kubitz DPM Work Phone: [facility] PodiatryComment on above:Foot drop, bilateral (Primary Dx); Neurogenic ulcer, 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); PAD (peripheral artery disease); Absent pulse; Idiopathic peripheral neuropathyStart: 10-06-2024 End: 43-78-1034akuurbfztiKVJFYX R NAVINBITZNot AvailableStart: 10-06-2024 End: 41-91-7715Wqpalm flowsheetEugene R Kubitz DPM Work Phone: [facility]iatryStart: 10-06-2024 End: 80-00-5178Zlwocg flowsheetEugene R Kubitz DPM Work Phone: [facility]iatryStart: 10-06-2024 End: 17-60-8827ushgajfzzcJovzpcf M Hoy MD Work Phone: [facility] Work Phone: Start: 10-06-2024 End: 39-93-9215Rtbwxjm encounter procedureCitlali [facility] Work Phone: Start: 09-27-2024 End: 90-59-7273Cuyhefp encounter procedureCWS Mahamed Gray DPM [facility] [place] Work Phone: Start: 09-27-2024 End: 56-87-4028jhltkadgqpJygzeyz M Hoy MD Work Phone: [facility] Work Phone: Start: 09-17-2024 End: 89-18-8834Qniysn flowsheetEugene R Kubitz DPM Work Phone: noms [facility] PODIATRYStart: 09-17-2024 End: 32-07-3616Mgzxgw flowsheetEugene R Kubitz DPM Work Phone: noms [facility]WS PODIATRYStart: 09-17-2024 End: 63-20-4404Uthifj outpatient new 30 minutesEugene R Kubitz DPM Work Phone: [facility] PodiatryComment on above:Idiopathic peripheral neuropathy (Primary Dx); Neurogenic ulcer, 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); PAD (peripheral artery disease); Absent pulse; Foot drop, bilateralStart: 09-17-2024 End: 72-32-9939ujypvdkwasOOBSZA R Anuradha AvailableStart: 07-19-2024 End: 04-56-1609Hbioabchb to same day surgery centerCarlos Eduardovitaliy Karina KHALIL-C Work Phone: spine SurgeryComment on above:TherapyStart: 07-19-2024 End: 06-08-7392gncwblvrkaBqfjcer Severinous PA-C Work Phone: spine SurgeryStart: 07-15-2024 End: 26-96-7478Ycreefvgp to same day surgery centerCarvitaliy Karina PA-C Work Phone: spine SurgeryComment on above:S/P cervical spinal fusion (Primary Dx)Start: 07-15-2024 End: 76-59-5218Qcvoezibprbl consultation with patientAlfonso KHALIL-Vikas Work Phone: spine SurgeryStart: 07-15-2024 End: 11-58-8235jgiatnmmrwJHMBNOM PELLEFacility:[facility] HospitalStart: 06-29-2024 End: 92-93-6751Jrpkexmxtqzl consultation with patientCarlos Eduardovitaliy Karina KHALIL-Vikas Work Phone: spine InstituteStart: 06-29-2024 End: 07-64-2760ksglsbiudcSnwreqv Karina PA-C Work Phone: spine InstituteComment on above:Spondylolysis, lumbar region (Primary Dx); S/P cervical spinal fusionX-ray schedulingStart: 06-28-2024 End: 81-19-3626MfbujsFeenido Bonus PA-C Work Phone: spine InstituteComment on above:Refill RequestStart: 06-22-2024 End: 76-20-7430hqtyuujgnsAxdcvfh Karina PA-C Work Phone: spine InstituteComment on above:Add Prednisone?Start: 06-21-2024 End: 09-37-8359Cglvxqklq to same day surgery Quan Keith MD Work Phone: spine InstituteComment on above:Post surgery symptoms Refill RequestStart: 06-21-2024 End: 69-71-4969rhcusjnoahIqhaard Pelle MD Work Phone: spine InstituteStart: 06-16-2024 End: 99-79-2971ihloaglrziYEXHFGI M HOYFacility:[facility] Centertart: 06-16-2024 End: 76-47-3541Oljnjcl encounter procedureNurse Spine Surg Main F06Tyaub InstituteComment on above:Encounter for removal of sara (Primary Dx)Start: 06-14-2024 End: 81-16-5549KJ Get Medical AdviceAlfonso KHALIL-C Work Phone: spine InstituteComment on above:Med RefillStart: 06-11-2024 End: 35-75-0763Ibhbrvire encounterKatherine Keith MD Work Phone: Spguf InstituteComment on above:Transition Of Care Start: 06-10-2024 End: 58-47-0439oggypbkwkoWplveki Bonus PA-C Work Phone: spine InstituteComment on above:Sara removalStart: 06-09-2024 End: 48-49-1762lmxhgayyifJlzpdfa Bonus PA-C Work Phone: Sptpx InstituteComment on above:Bathing instructions Start: 06-08-2024 End: 70-70-7674YmczzbNishant Tse MD Work Phone: cardiologyComment on above:SVT (supraventricular tachycardia) (HCC) (Primary Dx); Elevated troponinDischargeStart: 06-04-2024 End: 76-52-3210roosbrmbweGeuknfs Bonus PA-C Work Phone: Spovr InstituteComment on above:Neck braceStart: 06-02-2024 End: 42-30-3067Mohdilnhlq and management of inpatientKATHERINE KEITH Facility:[facility]ertart: 06-01-2024 End: 93-48-0604Dafrxncdq to same day surgery [place]Carl[place] Eduardovitaliy Karina SCHWARTZ Work Phone: spine InstituteComment on above:Phone number for surgery timeStart: 06-01-2024 End: 93-33-2540ejowrufpjpSkavpar Bonus EFREN Work Phone: spine InstituteStart: 05-17-2024 End: 73-15-5959xopsxbiteqCusdm Mc Coy RNInternal Medicine [facility]iffin HospitalQaoelj8Uqwhl: 20-86-1098xmuhlkwpbvQYYAXFH PELLEFacility:[facility] Hospitaltart: 05-14-2024 End: 10-62-2277Vvbjzchzrr hospital visit by physicianCt [facility] Work Phone: RADIO CT SCAN BLOOMINGTON HOSPComment on above:Spinal stenosis of cervical region [M48.02]Start: 05-12-2024 End: 49-94-0025kweuyqkocwVCQHVXP PELLEFacility:[facility] Centertart: 05-12-2024 End: 35-40-1186Njsduii encounter Anup Keith MD Work Phone: spine InstituteComment on above:Cervical spondylosis with myelopathy (Primary Dx); Spinal stenosis of cervical regionStart: 05-12-2024 End: 26-78-2590Jgwfsggzf to establishmentRhona Boss MD Work Phone: intm MAIN IMPACTStart: 05-12-2024 End: 04-63-2655Soayvwvfkprcp examination Brooklynn Boss MD Work Phone: [facility] Work Phone: Start: 05-12-2024 End: 21-69-8126xoqemosgrtObtuxJaved Boss MD Work Phone: intm MAIN IMPACTComment on above:Pre-op evaluation (Primary Dx); Spinal stenosis of lumbar region, unspecified whether neurogenic claudication present; Primary hypertensionStart: 56-98-9173Fiuxwgzko for other preprocedural examinationRHONA CORTEZLancaster Municipal HospitalStart: 05-10-2024 End: 00-40-0064cfvecacufgFNIATWU M HOYFacility:[facility] Centertart: 05-06-2024 End: 72-50-4647aqnejmysaoRkmkcwg Pelle MD Work Phone: Sphgr InstituteStart: 05-06-2024 End: 83-06-0514Kjxftrz encounter statusKatherine Keith MD Work Phone: [facility] Daytontart: 05-05-2024 End: 30-29-2075Wkvcptrwqkpn consultation with patientKatherine Keith MD Work Phone: Spcef InstituteStart: 05-05-2024 End: 02-75-0010Wiozlbfvl to same day surgery centerKatherine Keith MD Work Phone: Splek InstituteComment on above:Neck surgeryStart: 05-05-2024 End: 45-60-9046yiagjpcbbuEftmjgv Pelle MD Work Phone: Sphpd InstituteComment on above:Cervical spondylosis with myelopathy (Primary Dx)Start: 04-06-2024 End: 54-29-0629mrsspzapssPkopqel Bonus PA-C Work Phone: Spdmc InstituteComment on above:Request for Medical recordsStart: 02-21-2024 End: 09-28-9128wrvgysnhfrRMAQSDN M HOYFacility:[facility]ertart: 02-21-2024 End: 67-70-1783Fiyaagwgyy hospital visit by physiciani 7 Radio Main Q (I-Stat/1.5t/3t) Work Phone: MRI QComment on above:Spinal stenosis of cervical region [M48.02]Start: 02-03-2024 End: 35-11-8836FvltxkNishant Loyd PA-C Work Phone: Spfvq InstituteComment on above:Spinal stenosis of cervical region (Primary Dx)Start: 01-13-2024 End: 63-52-9270Ofyfuul encounter procedureKatherine Keith MD Work Phone: Spine InstituteComment on above:S/P lumbar fusion (Primary Dx); Right leg weaknessStart: 01-13-2024 End: 43-30-5809ryluzfqagzDIXNRYT M HOYFacility:[facility]ertart: 01-13-2024 End: 99-71-2546Nnkpfpr encounter procedureEmg 1 Neur Main (Max Weight: 1000) Work Phone: NeurologyStart: 01-13-2024 End: 91-21-2457dzqzulqimpOJBIMEU M HOYNeurologyComment on above:EMGStart: 01-13-2024 End: 19-15-0662vvihatpqrtUIJZNNU PELLEFacility:[facility] Centertart: 01-13-2024 End: 06-58-4250Qwixpzqxsv hospital visit by physicianMri 4 Radio Main Q (I-Stat/1.5t/3t) Work Phone: MRI QComment on above:Adverse effect of treatment, sequela [T88.9XXS]Acute low back pain, unspecified back pain laterality, unspecified whether sciatica present [M54.50]Start: 12-16-2023 End: 62-52-8952Acpkbmg encounter procedureMichael R NILL [phone]-Dastv General Surgery [place] Start: 12-05-2023 End: 37-69-2971Qihkmqaib encounterKatherine Keith MD Work Phone: Spnpi InstituteComment on above:Conference Service Coordinator - OtherStart: 11-26-2023 End: 24-44-7178dsarpfluehDN Ester Cain Work Phone: [facility] Work Phone: Start: 11-26-2023 End: 07-90-3498Iavcmwgz ReferredMD Ester Cain Work Phone: [facility]-LAB Path Spec [place] HospStart: 11-21-2023 End: 77-59-9378sapdpvdzsmUnjkmru Bonus PA-C Work Phone: spine InstituteComment on above:TestsStart: 11-12-2023 End: 54-00-4324Igjyblp encounter procedureKatherine Keith MD Work Phone: spine InstituteComment on above:Adverse effect of treatment, sequela (Primary Dx); Acute low back pain, unspecified back pain laterality, unspecified whether sciatica presentStart: 11-12-2023 End: 97-28-2995Esacop-up encounterKatherine Keith MD Work Phone: spine InstituteComment on above:Follow up med request Start: 11-12-2023 End: 93-68-4088scxujisadqHkyahby Pelle MD Work Phone: spine InstituteStart: 11-12-2023 End: 27-35-9765Wvelmkwqhl hospital visit by physicianVaishnavi Ochoa J1-4 Work Phone: RadiologyComment on above:History of laminectomy [Z98.890]Start: 11-11-2023 End: 03-84-9933tuqaqwlgsqHnshdlv Pelle MD Work Phone: spine InstituteStart: 11-11-2023 End: 61-73-5548Znsmfp-up encounterKathreine Keith MD Work Phone: spine InstituteComment on above:Surgery followupStart: 11-11-2023 End: 40-23-4318Rfosvwn encounter procedureMichael R NILL [phone]-Ilaae General Surgery [place] Start: 11-05-2023 End: 48-01-8712Pvruejbyw encounterAlfonso Loyd PA-C Work Phone: spine InstituteComment on above:Refill Request Insurance AuthorizationStart: 10-29-2023 End: 81-10-8591VvxgdgHziicgg Bonus PA-C Work Phone: Shawnine InstituteComment on above:Refill RequestStart: 34-10-6278bzwgtgtlivDkxqzaj Karina SCHWARTZ Work Phone: Spine InstituteComment on above:Office numberStart: 51-72-4185doeanicqijNcsbyuo Bonus PA-C Work Phone: Spine InstituteComment on above:MedicationStart: 10-21-2023 End: 54-37-3859qfvypsrjkoUpwrbvd Karina SCHWARTZ Work Phone: Spine InstituteComment on above:Right leg weakness (Primary Dx); S/P lumbar fusionFax numbersStart: 10-21-2023 End: 59-31-9803Grteaimbggzg consultation with patientAlfonso Karina SCHWARTZ Work Phone: spine InstituteStart: 85-04-0010Fmuzamzri encounter Katherine Keith MD Work Phone: NeurologyComment on above:medicationStart: 10-15-2023 RefillAlfonso Loyd PA-C Work Phone: [facility] InstituteComment on above:Refill RequestStart: 67-42-6053TF Get Medical AdviceKatherine Keith MD Work Phone: [facility] InstituteComment on above:Script refillsStart: 10-02-2023 End: 50-66-1656Mghrqmenry and management of inpatientKATHERINE KEITH Facility:[facility]art: 55-99-4445Xnmseulol encounterDavid ([facility]) MarthanickResearchComment on above:ResearchStart: 09-30-2023 End: 04-10-8521Nfkvrdg evaluation of patient and reportisa Tonya Orozco InstituteComment on above:S/P lumbar spinal fusion (Primary Dx)Start: 09-30-2023 End: 20-12-3360wghtwqebvnKDOPHTZ M HOYFacility:[facility] Centertart: 58-00-6163Rrwnvceta encounterAshanti Vinay Zhou InstituteComment on above: CARE CONTINUUM ADVISOR ASSESSMENTStart: 55-03-7536ZhytmrLyspzlo Bonus PA-C Work Phone: Spine InstituteComment on above:Refill RequestStart: 09-18-2023 End: 63-30-9700AixwjtZjlnbp Dimple Fair PA-C Work Phone: Spizi InstituteComment on above:Refill RequestStart: 53-42-7846abemzcpoeeTbzpfdc Pelle MD Work Phone: Spitl InstituteStart: 17-65-8427Savzgto encounter statusKatherine Keith MD Work Phone: [facility]tontart: 68-32-4142tphxkcacnqNcvlzeb Pelle MD Work Phone: Spine InstituteComment on above:Legs swellingStart: 38-85-0302Owocioxkw encounterKatherine Keith MD Work Phone: NeurologyComment on above:Patient UpdateStart: 50-06-9013VD Get Medical AdviceKatherine Keith MD Work Phone: Spine InstituteComment on above:Med refillStart: 85-18-1536hjlmsibwdpIkuqkpr Pelle MD Work Phone: Spcvr InstituteComment on above:Meds at home discussionStart: 19-37-4526cqbzrgujqaUpydbur Bonus PA-C Work Phone: Spyfm InstituteComment on above:Trevor Mauro OliverStart: 26-17-7899Huioxd-up encounterKatherine Keith MD Work Phone: Spine InstituteComment on above:Surgery followupStart: 09-07-2023 End: 84-56-9822Ubfhntaqlf and management of inpatientKEVIN ZIEGLER Facility:[facility]art: 83-62-9989IphlkcVcssthb Bonus PA-C Work Phone: Medical RecordsComment on above:Refill RequestStart: 68-03-9051Xtlzjaorj encounterKatherine Keith MD Work Phone: NeurologyComment on above:Patient UpdateStart: 90-65-1454OsnofuSehfdcr Bonus PA-C Work Phone: spine InstituteComment on above:Refill RequestMed refillStart: 16-42-9048Zseztvdkw to same day surgery centerKatherine Keith MD Work Phone: spine InstituteComment on above:08/19/23 surgeryStart: 97-87-5910crigmgxopsRvqluxe Pelle MD Work Phone: Sptif InstituteStart: 95-43-8315Tsqridfld encounter Katherine Keith MD Work Phone: NeurologyComment on above:Medication ProblemStart: 08-29-2023 End: 37-72-9643zdhyagpzhyNotyikj Bonus PA-C Work Phone: spine InstituteComment on above:Acute post-operative painStart: 08-29-2023 End: 05-21-5828Mkoajbuxwmbo consultation with Renee Loyd PA-C Work Phone: spine InstituteStart: 38-84-6823BM Get Medical Advice Katherine Keith MD Work Phone: Spdyb InstituteComment on above:Oxicodone medication refillStart: 08-22-2023 End: 76-36-0349Jyrnfsxctu and management of inpatientESTER CAIN Facility:[facility] HospitalStart: 08-19-2023 End: 19-10-7651Cbmvggodju and management of inpatientKATHERINE KEITH Facility:[facility] HospitalStart: 08-12-2023 End: 34-58-2177rjpyklpfdgCMKXLRS PELLEFacility:[facility] HospitalStart: 13-97-7896Rpuybayyw encounterJudi SIMMONSMercy [facility] Hospital InstituteComment on above: Follow UpStart: 67-15-1110tcdqgsfynzGecom Mc Coy RNInternal Medicine [facility] HospitalItrcgg9Udlpknl on above:Blood ManagementStart: 08-06-2023 End: 69-72-5383huatrxgfykWPZBEUM M BONUSFacility:[facility] HospitalStart: 08-06-2023 Encounter for other preprocedural examinationCAMERON REGIONAL MEDICAL CENTERJON Kahn HospitalStart: 08-06-2023 End: 50-05-6048Aqvgsnvoh to establishmentHighline Community [facility] [address] Other Phone: Pre AnesthesiaStart: 08-06-2023 End: 37-50-1623Fxkukom encounter procedureHighline Community Hospital Specialty [facility] [address] Other Phone: Pre AnesthesiaComment on above:Pre-op exam (Primary Dx); Primary hypertension; SVT (supraventricular tachycardia) (HCC); History of penicillin allergyStart: 08-06-2023 End: 03-71-0060Bkopchjywqply examination doneHighline Community [facility] [address] Other Phone: [facility] Work Phone: Start: 08-06-2023 End: 38-93-1407zgpuagyusaQBYKCDP PELLEFacility:[facility] Hospitaltart: 08-06-2023 Encounter for other preprocedural examinationDOMJON VARGASKarina HospitalStart: 22-65-4903Zviugnfew to same day surgery Quan Keith MD Work Phone: spine InstituteComment on above:Sooner Surgery Date Start: 54-01-2023chuivnjlgcWnrksbp Pelle MD Work Phone: Spctz InstituteStart: 62-55-3466Kftletcat encounter Katherine Keith MD Work Phone: spine InstituteComment on above:Patient UpdateStart: 07-30-2023 End: 47-13-5357npxjaogoqhOMTOCBW M HOYFacility:[facility] HospitalStart: 24-53-3277Jnnbhtmuf encounterKatherine Keith MD Work Phone: spine InstituteComment on above:FormsStart: 07-11-2023 ambulatoryKatherine eKith MD Work Phone: spine InstituteStart: 53-66-4301Tzbyzge encounter statusKatherine Keith MD Work Phone: [facility]tontart: 20-70-6091Oemjzpapj to same day surgery Quan Keith MD Work Phone: spine InstituteComment on above:Surgery dateStart: 97-86-4952qqxplgyhkvUbbqtid Pelle MD Work Phone: [facility]INStart: 91-19-7656zxcgpsnrgebren Keith MD Work Phone: [facility]INStart: 06-11-2023 Documentation procedureKatherine Keith MD Work Phone: spine InstituteComment on above:LTD DocumentsStart: 14-73-8547Cacdoyzmp encounterKatherine Keith MD Work Phone: spine InstituteComment on above:FormsStart: 05-29-2023 Telephone encounterKatherine Keith MD Work Phone: spine InstituteComment on above:Schedule SurgeryStart: 67-67-6096Zyqqibzov to same day surgery Quan Keith MD Work Phone: spine InstituteComment on above:Surgery dateStart: 63-10-1383aytcnzfgdzHafeupl Pelle MD Work Phone: [facility]INStart: 83-36-2508Zoqvwbxed to same day surgery Quan Keith MD Work Phone: spine InstituteComment on above:Surgery dateStart: 30-59-9693nxoqrvmvjlKfuxvkd Pelle MD Work Phone: [facility]INStart: 74-22-1298Ymdbxrbuk to same day surgery Quan Keith MD Work Phone: spine InstituteComment on above:Surgery scheduleStart: 40-39-1562epugzdrbfkQlmrjgo Pelle MD Work Phone: [facility] MAINStart: 84-59-4817znekgyndly DOMINIC PELLEFacility:[facility] HospitalStart: 05-04-2023 End: 57-33-0624Eitqxofctp hospital visit by physicianCt [facility] (I-Stat) Work Phone: [facility] Radiology CT ScanComment on above: Chronic low back pain, unspecified back pain laterality, unspecified whether sciatica present [M54.50, G89.29]Start: 04-30-2023 End: 59-24-1623Vbrswkngoy hospital visit by physicianXr Main U81ImoqiwisaZshkrst on above:History of lumbar laminectomy for spinal cord decompression [Z98.890] Start: 04-30-2023 End: 97-53-9464Xnkdamy encounter procedureKatherine Keith MD Work Phone: Spine InstituteComment on above:History of lumbar laminectomy for spinal cord decompression (Primary Dx); Degenerative scoliosis in adult patient; Chronic low back pain, unspecified back pain laterality, unspecified whether sciatica presentStart: 04-30-2023 End: 85-07-4933Ejgrinjrua hospital visit by physicianXr Main J1-4 Work Phone: RadiologyComment on above:Spinal stenosis, lumbar region with neurogenic claudication [M48.062]Start: 29-02-9491Gpnkb abstracting Katherine Keith MD Work Phone: NeurologyStart: 12-05-2022 End: 91-74-1678Xzghxbh encounter procedureShae Guillory [facility] Start: 10-30-2022 End: 95-32-7382Mmfincu encounter procedureShae Guillory [facility] Javed start: 10-28-2022 End: 01-24-5869kztcqclesiRU Ester Cain Work Phone: [facility] Work Phone: Start: 10-28-2022 End: 24-50-3941Jxihrps encounter procedureMD Ester Cain Work Phone: [phone] Main [place] Work Phone: Start: 09-04-2022 End: 01-09-6566Ggjfxij encounter procedureKelseyjon Guillory [facility] start: 05-21-2022 End: 27-18-6506Fxgkbge encounter procedureMichael R NILL General Surgery Nill/Said [place] Start: 05-07-2022 End: 23-35-2165Plehwlo encounter procedureMichael R NILL General Surgery Nill/Said [place] Start: 93-11-2281lqvekgdcbvKuMauri Cain Facility:240[address]Vmiuj: 58-32-4050Srmxegibg for preprocedural laboratory examinationDR CAMRYN AGUSTIN .[facility] Springfieldtart: 04-11-2022 End: 47-21-9143Iqjotbsjg for preprocedural laboratory examinationDR WILTON NICHOLEFacility:U5Gttfo: 04-11-2022 End: 02-90-9751emjolasobjSA WILTON SLOANERFacility:J4Vutij: 04-03-2022 End: 43-25-6243Txocyhp encounter procedureMichael R NILL General Surgery Nill/Said [place] Start: 03-16-2022 End: 39-91-0093beypqsitnoAnqckq PolicaroFacility:S9Vskal: 03-06-2022 End: 43-28-2688bbudwgxhkwFR ESTER CAIN .Facility:Q9Nanhr: 01-18-2022 End: 15-47-1031qajjpzrtvqSF ESTER CAIN .Facility:F5Vwbwx: 81-91-8640Prslhgdoi for general adult medical examination without abnormal findingsDR ESTER CAIN . [facility]tart: 01-01-2022 End: 18-45-5040ztfpdokgppXZ ESTER CAIN .Facility:G5Ztavt: 12-28-2021 End: 45-10-2012khwwztonxuDO ESTER CAIN .Facility:X4Xcenm: 12-28-2021 End: 01-82-0043Ggycowxqv for general adult medical examination without abnormal findingsDR ESTER CAIN .Facility:R8Lycvc: 07-31-2020 End: 63-45-0063tqvwitprklOJEHNCJ HOYFacility:[facility] Procedures DateProcedureProcedure DetailPerforming ClinicianStart: 38-25-1159Tgnga volume recorder pneumoplethysmographyEster Cain MD Work Phone: Start: 42-19-3422V-reactive proteinEugene R Kubitz DPM Work Phone: start: 99-84-5423Llffyqkt blood count with white cell differential, automatedEugene R Kubitz DPM Work Phone: start: 83-78-0066Jacrommgkqyqn metabolic panelEugene R Kubitz DPM Work Phone: start: 49-75-9432Favhfzub screenDOMCKINLEY URBINAYComment on above:Order Comment: Specimen Type: BLOOD SPECIMENOrdering Facility: [facility] Address:[address] [place], [place] [address]Performed By: #### [id number] ####[facility] BLOOD BANKCLIA [id number] [place] [address] [place] AMERICAStart: 18-30-8537Arx spinal canal cervical w/o contrast matrlCarissa Karina SCHWARTZ Work Phone: Start: 78-65-6061Qfbuo conduction studies 5-6 studies Meenakshi Morin MD Work Phone: Start: 81-68-8024Zv lumbar spine w/o contrast material Meenakshi Morin MD Work Phone: Start: 63-00-0033Fvo spinal canal lumbar w/o contrast materialMeenakshi Morin MD Work Phone: Start: 58-04-2511IsirwtqskxnPjrywj Kubitz DPM Work Phone: start: 91-17-3672LmpkvtcxnbgRoxhakv NILL Start: 76-37-3966Wuyym spine lumbosacral 2/3 views Alfonso CANELAC Work Phone: Start: 73-30-6499Pbrmlnzs screenDOUGLAS HOYComment on above:Order Comment: Specimen Type: BLOOD SPECIMENOrdering Facility: [facility] Address:[address] [place], [place] [address]Performed By: #### TSCR ####CC [facility]IN BLOOD BANKCLIA [id number] [facility] [id number] AMERICAStart: 27-76-3722Mufhqhfuqwr spinal fusionMichael NILL Start: 08-79-9172Nnx facetectomy&foramtomy 1 sgm ea crv thrc/lmbrMichael NILL Start: 33-39-4820Xvncdlub screenDOMINIC PELLEComment on above:Order Comment: Specimen Type: BLOOD SPECIMEN [facility] Address: [address] [place], [place] [address]Performed By: #### TSCR30 #### [facility] BLOOD BANK CLIA [id number] [address] [place] [address] [facility] AMERICAStart: 18-34-3946Qxd routine ecg w/least 12 lds i&r onlyRachel Mercedes SCHWARTZ Work Phone: Start: 70-87-8953Wy lumbar spine w/o contrast material Katherine Keith MD Work Phone: Start: 10-01-8051Ptuap entir thrc lmbr crv sac spi w/skull 2/3 vwKatherine Keith MD Work Phone: Start: 84-99-4844Nlssd spine lumbosacral minimum 4 viewsCarissa Karina SCHWARTZ Work Phone: Start: 30-28-0395Shjlpyksgejqh needle biopsy of prostateKathy Lue Start: 77-38-9096MA prostate wo/w conMD Ester Cain Work Phone: Start: 20-87-0757Dwnemcdcdfdj repair of obstructed hernia of anterior abdominal wallMichael NILL Start: 30-15-9143YLR screeningFrstrong memorial hospitalo PolicaroComment on above:Performed By: #### PSASC, VITAD #### [facility] [address] [place] [address] Dr. Max PeckStart: 33-59-3902FjbfgqzikpjAvvrsjz NILL Start: 26-36-3513Omza structure, excluding neck (body structure)Camryn NILL Start: 63-48-2108Qdwd structure, excluding neck (body structure)Camryn NILL Start: 09-95-8787JzpobbmlqioffgjQdzyczo NILL Cervical laminectomyMichael NILL Excision of lesion of skinMichael NILL Comment on above:synagogue and shave leson left neck Extraction of cataractMichael NILL History of cholecystectomyS/P cholecystectomyEster Cain MD Work Phone: History of excision of lamina of lumbar vertebra for decompression of spinal cordHistory of lumbar laminectomy for spinal cord decompressionXr O92Xkliuxi of excision of lamina of lumbar vertebra for decompression of spinal cordHistory of lumbar laminectomy for spinal cord decompressionKatherine Keith MD Work Phone: LaminectomyMichael NILL Comment on above:x 3-- 2018, 2013, 2000Lumbar spinal fusionMichael NILL Revision of fusion of lumbar spineMichael NILL Plan of Treatment DateCare ActivityDetailAuthorStart: 29-27-6370Jgesvnqim for malignant neoplasm of colonNOVA HealthcareStart: 44-26-3871Bnefcdxr ScreeningDiabetes Screening [facility]ontart: 99-16-2697Wovffyff ScreeningDiabetes ScreeningKettering Health Daytontart: 85-56-9208Krkrzkgs ScreeningDiabetes ScreeningU[facility] Start: 66-45-8212Bldiflyl specific antigen measurementProstate Cancer Screening DiscussionK[facility]tering Health Daytontart: 51-97-8151Oromroia ScreeningDiabetes Screening [facility] Daytontart: 54-51-7153Adkewxvx ScreeningDiabetes ScreeningK[facility]tering Health Daytontart: 45-46-7201Mvvrdsjt ScreeningDiabetes ScreeningUc [facility] Start: 53-11-8960Cxgcrtlt ScreeningDiabetes ScreeningK[facility]tering Health Daytontart: 08-38-6012Ibjoymkr ScreeningDiabetes ScreeningKettering Health Daytontart: 01-14-2025 End: 16-48-1483Kyikobx encounter zsjlldhku59/07/2025 11:15 AM EST Office Visit [facility] [address] [place] [address] Mahamed Gray DPM [address] [place] [address] ArrivedNO [place] PodiatryComment on above:ArrivedStart: 13-04-8258TETHQ-19 Vaccine ( season)COVID-19 Vaccine ( season)[facility] HealthcareStart: 74-09-8297Qbsulamce vaccinationKettering Health Daytontart: 10-06-2024 End: 03-73-7913Cucrphf encounter rbgcuvnek50/30/2025 4:15 PM EDT Office Visit [facility] [facility] [address] [place] [address] Mahamed Gray DPM [address] [place] [address] ArrivedNO [facility] PodiatryComment on above:ArrivedStart: 07-83-1135Fqmfq volume recorder pneumoplethysmography [facility] Hospitaltart: 09-17-2024 End: 34-72-8099VV.doppler Extremity arteries - bilateral for physiologic artery study at rest and with exerciseVASC US PVR WITH MARCIAL Imaging High Priority Neurogenic ulcer, 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) PAD(peripheral artery disease) Absent pulse Expected: 09/17/2024 (Approximate), Expires: 09/17/2025 [facility] Work Phone: comment on above:Expected: 09/17/2024 (Approximate), Expires: 09/17/2025Start: 09-17-2024 End: 44-53-0034Rnadsku encounter /11/2025 10:30 AM EDT Office Visit [facility] [address] [place] [address] Mahamed Gray DPM [address] [place] [address] ArrivedRAMON MILLER PODIATRYComment on above:ArrivedStart: 07-15-2024 End: 33-83-9390Grrgzqurx to same day surgery ehcmjy8307/15/2024 9:00 AM EDT [facility] Spine Surgery [address] [place], [place] [id number] Alfonso Loyd PA-C [address] [place] [address] POST-OP 6-8WKSSpine SurgeryComment on above:POST-OP 6-8WKSStart: 07-09-2024 End: 29-72-5330Cgmrpfw encounter procedureRadiologyComment on above:POST-OP Elevated troponin after spine surgeryStart: 06-29-2024 End: 14-34-2672lsimidlmkr37/22/2025 9:30 AM EDT [facility] Spine [address] [address] Alfonso Loyd PA-C [address] [place] [address] POST-2WKS Spine InstituteComment on above:POST-2WKSStart: 06-16-2024 End: 05-53-5705Efrxaea encounter lootormao98/09/2025 10:00 AM EDT Office Visit [facility] [address] [place] [address] Staple RemovalSpine InstituteComment on above:Staple RemovalStart: 06-16-2024 End: 36-78-6815ynnrxvsrwy51/09/2025 9:00 AM EDT [facility] Spine [address] [address] Alfonso Loyd PA-C [address] [place] [address] POST-2WKS Spine InstituteComment on above:POST-2WKSStart: 06-02-2024 End: 49-67-4358Ukrftivge to same day surgery centerSpine InstituteComment on above:Schedule surgeryCERVICAL LAMINOPLASTY WITH DECOMPRESSION 2 OR MORE SEGMENTSStart: 06-02-2024 End: 31-87-1682Wxblrpctu to same day surgery wuiauy5306/02/2024 8:30 AM EDT - 06/02/2024 11:27 AM EDT Surgery Admitting [address] [place] [address] Katherine Keith MD [address] [place] [address] CERVICAL LAMINOPLASTY WITH DECOMPRESSION 2 OR MORE SEGMENTS AdmittingComment on above:CERVICAL LAMINOPLASTY WITH DECOMPRESSION 2 OR MORE SEGMENTSStart: 06-02-2024 End: 26-65-5401Imtfv cervical w/dcmprn spi cord 2/> vert seg [facility] Start: 06-02-2024 End: 21-46-6568Esixpzhxle cervical dcmprn cord 2/> seg rcnstj [facility] Start: 54-42-5497Ejlurojdgd hospital visit by physicianAdmittingComment on above:Spinal stenosis of cervical region [M48.02]Start: 05-12-2024 End: 87-76-6279WNUJOCXAXEHLKU AUREUS & MRSA SCREEN, PCR, NASALSTAPHYLOCOCCUS AUREUS & MRSA SCREEN, PCR, NASAL Lab Routine Pre-op testing Expected: 05/12/2024 (Approximate), Expires: 06/02/2024[facility] ClinicComment on above:Expected: 05/12/2024 (Approximate), Expires: 06/02/2024Start: 05-12-2024 End: 27-05-5855Nnczqjf encounter nwlldklpo76/05/2025 11:30 AM EST Office Visit [facility] [address] [place] [address] Katherine Keith MD [address] [place] [id number] PRE-OP CLEARANCESpine InstituteComment on above:PRE-OP CLEARANCEStart: 05-12-2024 End: 71-66-0951Zietlmp encounter procedureAdmittingComment on above:PRE-OP CLEARANCEStart: 05-12-2024 End: 94-56-7170Csnjyrushw vdxhgvciebgd12/05/2025 9:20 AM EST PAT Pre Anesthesia [address] [place] [id number] [address] [place] [address] PRE-OP CLEARANCEPre AnesthesiaComment on above:PRE-OP CLEARANCEStart: 05-10-2024 End: 75-20-9709Wotgoyg encounter caixdlybj09/03/2025 10:00 AM EST Office Visit Financial Clearance Phone Screening [place] [address] REGISTRATIONFinancial Clearance Phone ScreeningComment on above:REGISTRATIONStart: 05-06-2024 End: 73-80-9155EVU W Auto Differential panel - BloodCOMPLETE BLOOD COUNT AND DIFFERENTIAL Lab Routine Iron deficiency anemia, unspecified iron deficiency anemia type Expected: 05/06/2024 (Approximate), Expires: 06/02/2024[facility] ClinicComment on above:Expected: 05/06/2024 (Approximate), Expires: 06/02/2024 Start: 05-06-2024 End: 02-70-8076Sbjzaclf [Mass/volume] in Serum or PlasmaFERRITIN Lab Routine Iron deficiency anemia, unspecified iron deficiency anemia type Expected: 05/06 (Approximate), Expires: 06/02/2024[facility] ClinicComment on above: Expected: 05/06/2024 (Approximate), Expires: 06/02/2024Start: 05-06-2024 End: 96-34-8280Fuwn and Iron binding capacity panel - Serum or PlasmaIRON AND TIBC Lab Routine Iron deficiency anemia, unspecified iron deficiency anemia type Expected:05/06/2024 (Approximate), Expires: 06/02/2024[facility] Work Phone: Comment on above:Expected: 05/06/2024 (Approximate), Expires: 06/02/2024Start: 38-20-6779Oraslel Directive DiscussionAdvance Directive DiscussionKettering Health Daytontart: 01-13-2024 End: 79-67-0651Rsrmlve encounter lismahmcz40/05/2024 1:40 PM EST Office Visit [facility] [address] [place], [place] [phone] Katherine Keith MD [address] [place], [place] [phone] f/u with providerSpine InstituteComment on above:f/u with providerStart: 01-13-2024 End: 57-73-9364hifxmtlkmb36/05/2024 9:30 AM EST Procedure Neurology [address] [place] [address] Adverse effect of treatment, sequela [T88.9XXS]NeurologyComment on above:Adverse effect of treatment, sequela [T88.9XXS]Start: 01-13-2024 End: 07-97-8645Kixxbhn encounter ctmvmuvrz98/05/2024 8:30 AM EST Appointment MRI Q [address] [address] MRI LUMBAR SPINE WO IVCON MRI QComment on above:MRI LUMBAR SPINE WO IVCONStart: 01-13-2024 End: 86-27-9752Agfcrrl encounter procedureMRI QComment on above:MRI THORACIC SPINE WO IVCONAcute low back pain, unspecified back pain laterality, unspecified whether sciatica present [M54.50]Start: 11-12-2023 End: 47-76-9449Ceqbsdg encounter wqegcuxfv74/04/2024 2:20 PM EDT Office Visit [facility] [address] [place] [address] Katherine Keith MD [address] [place] [address] post op in personSwadley InstituteComment on above:post op in personStart: 11-12-2023 End: 10-95-4015Fpwhdnu encounter bxhinmhei21/04/2024 1:10 PM EDT Appointment Radiology [address] [place] [address] [phone] post op lumbar RadiologyComment on above:post op lumbarStart: 56-74-1517Irgwt-19 Vaccine ( season)Covid-19 Vaccine ( season)[facility]: 17-95-7512Gmahq-19 Vaccine ( season)Covid-19 Vaccine ( season)[facility]: 95-39-0133Qypqvhsls vaccinationUc [facility] Start: 10-21-2023 End: 64-31-2342vpskzgocdp22/13/2024 8:50 AM EDT [facility] [address] [place] [address] Alfonso Loyd PA-C [address] [place] [address] MYC Postop Spine InstituteComment on above:MYC PostopStart: 10-14-2023 End: 99-42-1201Srlptzx encounter procedureRadiologyComment on above:post op lumbarpost op in personStart: 10-08-2023 End: 13-96-0535Uibspuh encounter /31/2024 12:40 PM EDT Office Visit [facility] [address] [place], [place] [phone] Katherine Keith MD [address] [place], [place] [phone] post op in personSwadley InstituteComment on above:post op in personStart: 10-08-2023 End: 10-26-1591Wqddnsr encounter dzukkrkog88/31/2024 11:30 AM EDT Appointment Radiology [address] [place] [address] post op lumbar RadiologyComment on above:post op lumbarStart: 10-02-2023 End: 93-78-7712Dsbvwqqjo to same day surgery centerAdmittingComment on above: EXPLORATION OF SPINAL FUSIONStart: 10-02-2023 End: 45-20-5299Msdoxqkurty spinal fusion MAIN PAVILIONStart: 10-02-2023 End: 81-01-1119Rpp facetectomy & foramotomy 1 segment lumbar [facility]IN PAVILION Start: 10-02-2023 End: 41-11-4313Sey facetectomy&foramtomy 1 sgm ea crv thrc/lmbr [facility]IN [facility]ILION Start: 10-02-2023 End: 57-04-1242Dylcyjthg segmental instrumentation 3-6 vrt [facility] MAIN PAVILION Start: 61-21-8067Pmbsnmccdi hospital visit by physicianAdmittingComment on above:S/P lumbar spinal fusion [Z98.1]Start: 09-30-2023 End: 71-40-1226Zfeajzc evaluation of patient and dlmxee6709/30/2023 10:00 AM EDT Nurse Visit [facility] [address] [place] [address] Melody Castaneda, PATRICIA Phone EducationSpine InstituteComment on above:Phone Education Start: 09-18-2023 End: 97-87-0926Kiktnly encounter ombrmbspd46/11/2024 2:00 PM EDT Office Visit Financial Clearance Phone Screening [place] [address] Regi[employer] Clearance Phone ScreeningComment on above:RegiStart: 09-17-2023 End: 60-08-2859FWJVAIULLFEWMN AUREUS & MRSA SCREEN, PCR, NASALSTAPHYLOCOCCUS AUREUS & MRSA SCREEN, PCR, NASAL Lab Routine S/P lumbar spinal fusion Pre-op testing Expected: 09/17/2023, Expires: 12/17/2023[facility] Work Phone: Comment on above:Expected: 09/17/2023, Expires: 12/17/2023Start: 09-16-2023 End: 60-70-1079iedrvfvydc36/09/2024 10:10 AM EDT [facility] Spine [facility] [address] [place] [phone] Alfonso Loyd PA-C [address] [place] [phone] 2 week post op( virtual visit)Spine InstituteComment on above:2 week post op( virtual visit)Start: 09-02-2023 End: 29-55-6623Vfxipokex to same day surgery rzsynh1109/02/2023 7:30 AM EDT - 09/02/2023 2:00 PM EDT Surgery Admitting [address] [place] [address] Katherine Keith MD [address] [place] [address] LATLUMBAR SPINE FUSIONAdmittingComment on above:LAT LUMBAR SPINE FUSIONStart: 09-02-2023 End: 24-57-8628Vyqfkkzwkzo lat extracavitary ea addl thrc/lmbrLAT THOR/LUMB, ADD'L SEG History of laminectomy Degenerative scoliosis in adult patient Pre-op testing 09/02/2023 7:30 AM EDT[facility] MAIN PAVILIONStart: 09-02-2023 End: 38-03-6547Zkrmgmexpow lateral extracavitary lumbarLAT LUMBAR SPINE FUSION History of laminectomy Degenerative scoliosis in adult patient Pre-op testing 09/02/2023 7:30 AM [facility] MAIN PAVILIONStart: 09-02-2023 End: 41-29-5494Wbcb biomchn dev intervertebral dsc spc w/arthrdINSERTION INTERBODY BIOMED DEVICE(S) W/ANT INSTR ANCHORING TO DISC SPACE W/INTERBODY FUSION,EA INTERSPACE History of laminectomy Degenerative scoliosis in adult patient Pre-op testing 09/02/2023 7:30AM [facility] MAIN PAVILIONStart: 09-02-2023 End: 15-26-3658Dyqlkzhps non-segmental instrumentationMINIMALLY INVASIVE POSTERIOR NONSEGMENTAL INSTRUMENTATION History of laminectomy Degenerative scoliosis in adult patient Pre-op testing 09/02/2023 7:30 AM [facility] MAIN PAVILION Start: 41-66-2250Uhkpnryzaa hospital visit by tesopmizq75/25/2024 7:30 AM EDT Hospital Encounter Admitting [address] [place] [address] Katherine Keith MD [address] [place] [address] History of laminectomy [Z98.890]AdmittingComment on above:History of laminectomy [Z98.890]Start: 08-29-2023 End: 07-57-7665teevaqrdes30/21/2024 8:30 AM EDT [facility] Sp[facility] [address] [place] [phone] Alfonso Loyd PA-C [address] [place] [address] 2 week post op( virtual visit)Spine InstituteComment on above:2 week post op( virtual visit)Start: 08-28-2023 End: 03-44-0340ilsjfkxdgh21/20/2024 10:00 AM EDT [facility] Patient Outreach [facility] [address] [place] [address] Provider, Nurse [facility] [address] [place] [address] Nurse ALANISwadley InstituteComment on above:Nurse ROBERTO Start: 08-19-2023 End: 63-03-4632Tuaalwiqq to same day surgery bkcfqp8508/19/2023 7:30 AM EDT - 08/19/2023 2:00 PM EDT Surgery Admitting [address] [place] [address] Katherine Keith MD [address] [place] [phone] LATLUMBAR SPINE FUSIONAdmittingComment on above:LAT LUMBAR SPINE FUSIONStart: 08-19-2023 End: 72-75-9840Gwcyxspxypu lat extracavitary ea addl thrc/lmbrLAT THOR/LUMB, ADD'L SEG History of laminectomy Degenerative scoliosis in adult patient Pre-op testing 08/19/2023 7:30 AM [facility] MAIN PAVILIONStart: 08-19-2023 End: 66-09-2314Ttyaybgvqkn lateral extracavitary lumbarLAT LUMBAR SPINE FUSION History of laminectomy Degenerative scoliosis in adult patient Pre-op testing 08/19/2023 7:30 AM [facility] MAIN PAVILIONStart: 08-19-2023 End: 21-13-1674Qwoa biomchn dev intervertebral dsc spc w/arthrdINSERTION INTERBODY BIOMED DEVICE(S) W/ANT INSTR ANCHORING TO DISC SPACE W/INTERBODY FUSION,EA INTERSPACE History of laminectomy Degenerative scoliosis in adult patient Pre-op testing 08/19/2023 7:30AM [facility] MAIN PAVILIONStart: 08-19-2023 End: 65-97-4656Lfpewvblz non-segmental instrumentationMINIMALLY INVASIVE POSTERIOR NONSEGMENTAL INSTRUMENTATION History of laminectomy Degenerative scoliosis in adult patient Pre-op testing 08/19/2023 7:30 AM [facility] MAIN PAVILION Start: 69-90-6412Yotpmknmte hospital visit by /11/2024 7:30 AM EDT Hospital Encounter Admitting [address] [place] [address] Katherine Keith MD [address] [place] [address] History of laminectomy [Z98.890]AdmittingComment on above:History of laminectomy [Z98.890]Start: 08-12-2023 End: 96-96-2483hmsflvmxqq16/04/2024 2:00 PM EDT [facility] Patient Outreach [facility] [address] [place] [address] Provider, Nurse [facility] [address] [place] [address] Nurse [facility] Medical CenterComment on above:Nurse [facility] CENTERtart: 08-11-2023 End: 44-00-0861JLA W Auto Differential panel - BloodCOMPLETE BLOOD COUNT AND DIFFERENTIAL Lab Routine History of laminectomy Degenerative scoliosis in adult patient Pre-op testing Iron deficiency anemia, unspecified iron deficiency anemia type Expected: 08/11/2023 (Approximate), Expires: 11/10/2023leveland ClinicComment on above:Expected: 08/11/2023 (Approximate), Expires: 11/10/2023 Start: 08-11-2023 End: 37-85-1028Kqcqxomw [Mass/volume] in Serum or PlasmaFERRITIN Lab Routine History of laminectomy Degenerative scoliosis in adult patient Pre-op testing I jessica deficiency anemia, unspecified iron deficiency anemia type Expected: 08/11/2023 (Approximate), Expires: 11/10/2023[facility] ClinicComment on above: Expected: 08/11/2023 (Approximate), Expires: 11/10/2023Start: 08-11-2023 End: 09-72-5051Zfal and Iron binding capacity panel - Serum or PlasmaIRON AND TIBC Lab Routine History of laminectomy Degenerative scoliosis in adult patient Pre-op testing Iron deficiency anemia, unspecified iron deficiency anemia type Expected: 08/11/2023 (Approximate), Expires: 11/10/2023[facility] Work Phone: Comment on above:Expected: 08/11/2023 (Approximate), Expires: 11/10/2023Start: 08-11-2023 End: 49-40-7001URSRMLDKHLEBYL AUREUS & MRSA SCREEN, PCR, NASALSTAPHYLOCOCCUS AUREUS & MRSA SCREEN, PCR, NASAL Lab Routine History of laminectomy Degenerative scoliosis in adult patient Pre-op testing Expected: 08/11/2023 (Approximate), Expires: 11/10/2023leveland ClinicComment on above:Expected: 08/11/2023 (Approximate), Expires: 11/10/2023Start: 08-06-2023 End: 34-80-8804Gsfrscd encounter procedurePre AnesthesiaComment on above:pre op pre op labsStart: 07-30-2023 End: 10-12-5880Tzmlypo encounter oqfsgznmu61/22/2024 10:30 AM EDT Office [place] [address] pre op gcFinancial Clearance Phone ScreeningComment on above:pre op gcStart: 85-99-9609Iiqtsav Directive Discussion Advance Directive DiscussionKettering Health Daytontart: 44-26-5065Nwenzebxni Health ScreeningBehavioral Health ScreeningCleThe Bellevue Hospitaltart: 88-70-8729Qfczqmowll AssessmentDepression AssessmentCleThe Bellevue Hospitaltart: 18-95-0196Acvpn-19 Vaccine ( season)Covid-19 Vaccine ( season)[facility]: 69-91-9000Vsyuuopfr vaccinationInfluenza Vaccine (#1)[facility]: 07-48-4051Nilpbwwqfrxa Vaccine: 65+ (1 of 1 - PCV)Pneumococcal Vaccine: 65+ (1 of 1 - PCV)[facility]: 59-16-6051RSN Vaccine (1 - 1-dose 60+ series) RSV Vaccine (1 - 1-dose 60+ series)[facility]: 74-15-7348RMO Vaccine (1 - Risk 60-74 years 1-dose series)RSV Vaccine (1 - Risk 60-74 years 1-dose series)[facility]: 03-35-8073Fqxwkhzz specific antigen measurement Prostate Cancer Screening DiscussionCleThe Bellevue Hospitaltart: 2007 Pneumococcal Vaccine: 50+ (1 of 1 - PCV)Pneumococcal Vaccine: 50+ (1 of 1 - PCV) [facility]: 64-61-2618Pzuygnjdcnrf Vaccine: 65+ Years (1 of 1 - PCV) Pneumococcal Vaccine: 65+ Years (1 of 1 - PCV)[facility] HealthcareStart: 2007 Shingrix Vaccine (1 of 2)Shingrix Vaccine (1 of 2)[facility]: 96-34-2892Hiyfeiop ScreeningDiabetes ScreeningKettering Health Daytontart: 2002 Screening for malignant neoplasm of colonKettering Health Daytontart: 54-29-0389Yyyse panelLipid ScreeningKettering Health Daytontart: 25-36-4486Knywb microalbumin profile DTaP,Tdap,Td Vaccine (1 - Tdap)[facility]: 77-07-6282Xdmjza PCP Team Chronic Disease VisitAnnual PCP Team Chronic Disease VisitKettering Health Daytontart: 39-25-3868Fvonuig ScreeningAnxiety ScreeningKettering Health Daytontart: 94-73-9008SC Controlled (<130/80)BP Controlled (<130/80)[facility]: 1975 Depression ScreeningDepression ScreeningKettering Health Daytontart: 1975 Hepatitis C screeningHepatitis C ScreeningKettering Health Daytontart: 1957 Covid-19 Vaccine (#1)Covid-19 Vaccine (#1)[facility]: 1955 Screening for malignant neoplasm of colonNOMS HealthcareCT Cervical spine WO contrastCT CERVICAL SPINE WO IVCON Radiology Routine Spinal stenosis of cervical region 05/14/2024 9:43 AM [facility] Work Phone: End: 09-27-8920YO Lumbar spine WO contrastCT LUMBAR SPINE WO IVCON Radiology Routine Acute low back pain, unspecified back pain laterality, unspecified whether sciatica present 1 Occurrences starting 11/12/2023 until 12/11/2024 [facility]:1 Occurrences starting 11/12/2023 until 12/11/2024ECG COMPLETEECG COMPLETE ECG Routine Pre-op exam 08/06/2023 8:48 AM [facility] Work Phone: End: 57-09-5806LOP COMPLETEECG COMPLETE ECG Routine SVT (supraventricular tachycardia) (HCC) Elevated troponin 1 Occurrences starting 06/08/2024 until 06/08/2025[facility] Work Phone: comment on above:1 Occurrences starting 06/08/2024 until 06/08/2025 End: 33-67-3197QGC(NEURO/NI)EMG(NEURO/NI) EMG Routine History of lumbar laminectomy for spinal cord decompression Degenerative scoliosis in adult patient Chronic low back pain, unspecified back pain laterality, unspecified whether sciatica present 1 Occurrences starting 04/30/2023 until 04/30/2024 [facility] Work Phone: Comment on above:1 Occurrences starting 04/30/2023 until 04/30/2024 End: 07-73-7104ZID(NEURO/NI)EMG(NEURO/NI) EMG Routine Adverse effect of treatment, sequela 1 Occurrences starting 11/12/2023 until 11/11/2024[facility] CenterComment [facility] above:1 Occurrences starting 11/12/2023 until 11/11/2024 End: 30-78-9942PK Cervical spine WO contrastMRI CERVICAL SPINE WO IVCON Radiology Routine Spinal stenosis of cervical region 1 Occurrences starting 02/03/[address] [place] [address] Work Phone: Comment on above:1 Occurrences starting 02/03/2024 until 03/04/2025 End: 98-42-2269NA Lumbar spine WO contrastMRI LUMBAR SPINE WO IVCON Radiology Routine Adverse effect of treatment, sequela 1 Occurrences starting 11/12/2023 until 12/11/2024[facility] CenterComment on above:1 Occurrences starting 11/12/2023 until 12/11/2024 End: 80-49-5858OK Thoracic spine WO contrastMRI THORACIC SPINE WO IVCON Radiology Routine Adverse effect of treatment, sequela 1 Occurrences starting 11/12/[address] [place] [address] Work Phone: Comgdyv on above:1 Occurrences starting 11/12/2023 until 12/11/2024 End: 26-62-6630Vyazw spine lumbosacral minimum 4 viewsXR LUMBAR MOTION 4V AP/LAT/ FLEX/EXT Radiology Routine Spinal stenosis, lumbar region with neurogeni c claudication 1 Occurrences starting 03/21/[address] [place] [address] Work Phone: Comment on above:1 Occurrences starting 03/21/2023 until 04/19/2024 End: 05-88-9363FG Cervical spine AP and LateralXR CERV GENERAL 2V AP/LAT Radiology Routine Spinal stenosis of cervical region 1 Occurrences starting 05/06/2024 until 06/05/2025[facility] ClinicComment on above:1 Occurrences starting 05/06/2024 until 06/05/2025 End: 75-67-3407ZP Cervical spine AP and LateralXR CERV GENERAL 2V AP/LAT Radiology Routine S/P cervical spinal fusion 1 Occurrences starting 06/29/2024 until 07/29/2025[facility] Work Phone: Comment on above:1 Occurrences starting 06/29/2024 until 07/29/2025 End: 67-42-9310DL Lumbar spine AP and LateralXR LUMBAR LIMITED 2V AP/LAT Radiology Routine History of laminectomy Degenerative scoliosis in adult patient 1 Occurrences starting 07/11/2023 until 08/10/2024[facility] ClinicComment on above:1 Occurrences starting 07/11/2023 until 08/10/2024[facility] Immunizations Immunization DateImmunizationNotesCare SzyobfagVdjefdhl99-24-6399ohtycvolf virus vaccine, unspecified formulationKathy Lue [facility]10-22-2021SARS-CoV-2 (COVID-19) mRNA BNT-162b2 vaxMichael NILL [phone]-OrddaPeoples Hospital General Surgery [place] 13-58-4293KELM-CoV-2 (COVID-19) mRNA BNT-162b2 vaxMichael NILL [phone]-JbslgLakehealth [facility] 32-78-0139GZMV-CoV-2 (COVID-19) mRNA BNT-162b2 vaxMichael NILL [phone]-PevbnCleveland Clinic Surgery [place] Comment on above:Result Comment: 2022-03-29: [id number]: Highlighted row has not occurred!86-01-4957rwazhogrk virus vaccine, unspecified formulationMichael NILL General Surgery BellevueNEGATED: Highlighted row has not occurred!11-05-5613shqqshjqb virus vaccine, live, attenuated, for intranasal useMichael NILL [facility] [place] Payers DatePayer CategoryPayerPolicy [id number] Health [id number] Health [id number] 2.16.840.1.785940.3.579.2.647 [id number] 2.16840.1.059136.3.57[id number] 2.16.840.1.978609.3.57[id number] 2.16.840.1.851002.3.579.[id number] 2.16840.1.933837.3.57[id number] 2.16.840.1.814021.3.579.[id number] 2.16.840.1.730459.3.57[id number] 2.16.840.1.492406.3.579.[id number] 2.16.840.1.910422.3.579.2.[id number] 2.16.840.1.302320.3.57[id number] 2.16.840.1.510481.3.57[id number] 2.16.840.1.035839.3.579.[id number] 2.16.840.1.930161.3.579.2.1259UnknownRegular [id number] 71band89-996q-5006-5crt-[id number] 2.16.840.1.143607.3.579.2.529Lowdcni02593286 2.16.840.1.478383.3.579.2.531 Social History DateTypeDetailFacilityStart: 04-03-2022 End: 56-00-4427Fxoycdd smoking statusNever smoked tobacco (finding)General Surgery BellevueStart: 98-96-9110Sydvkhr smoking statusNeverGeneral Surgery BellevueStart: 04-30-2023 End: 37-44-5611[facility]: 42-56-4947Cht [facility] 09-[facility]-2008 End: 45-88-3625Rzlbtld intakeNot AskedKettering Health Daytontart: 09-69-2744Lpshjc identityIdentifies as male gender (finding)[facility]: 03-20-2023 Sexual orientationHeterosexual (finding)[facility]: 64-27-6818Pcpkhsc use and exposureFormer smokeless tobacco userUc West Chester Hospital End: 57-60-3233Afloyxf of tobacco useChews TobaccoKettering Health Daytontart: 04-30-2023 End: 97-70-7107Hsuyfbn of Social functionKettering Health Daytontart: 08-06-2023 End: 43-78-8009Cgkehek intakeLifetime non-drinker (finding)[facility] HospitalHa the electric, gas, oil, or water company threatened to shut off services in your home in past 12MoNProMedica Memorial Hospital(I/We) worried whether (my/our) food would run out before (I/we) got money to buy more.Never trueUc West Chester HospitalTobacommunity hospital – [place] smoking status NHISTobacco smoking consumption unknownNOVA HealthcareStart: 10-03-9475Bqf assigned at birthNot on fileNOVA HealthcareStart: 89-09-7596Bfo Male (finding)[facility] Hospitaltart: 33-35-3496Skkyhtt use and exposureSmokeless tobacco non-userNOVA HealthcareSexual OrientationPeoples Hospital General Surgery [place] Medical Equipment Procedure CodeEquipment CodeEquipment Original TextEquipment IdentifierDates Signify Gel Instafill Cartridge 5cc [id number]_impStart: 35-79-2974Xvpt Mis Locking [id number]_zdaJszgo: 14-34-1744Kbmdj Infuse 20ga Medium Bovine Collagen Rhbmp-2 2x1in Bone Vial Absorbable - [id number]_drsHizpo: 97-87-4799Kveepvb Gel Instafill Cartridge 5cc [id number]_impStart: 17-12-8791Hysn Mis 5.5mm Curved Jw Ti Alloy [id number]_impStart: 08-19-2023 Creo Mis 5.5mm Curved Jw Ti Alloy [id number]_impStart: .0x45 [id number]_impStart: 09-11-0810Chlu One Robotic Modular Screw 6.5mm X 50mm [id number]_impStart: 47-48-8363Dvcx One Robotic Modular Screw 6.5mm X 55mm [id number]_impStart: .[id number]_impStart: 50-36-6069Pzqrmu Rise-L 3d Lordotic 24b39q8hd Spinal [id number]_zvaWekst: 00-13-0561Sglwsj Rise-L 3d Lordotic 45r23k3fn Spinal [id number]_lbxNarfx: 21-86-2194Cwlrh Canopy 9mm Bone Shelf Inline Spine - [id number]_zikRgktp: 62-98-6510Cgzbz Canopy 2.6mm 4mm Bone Self Drill Laminoplasty Spine - [id number]_jioAsjsu: 00-02-3652Ryyjgu 2.6mm Screw Self-Drilling [id number]_impStart: 06-02-2024 Functional Status LlewDxggtzualpRlmfmhVrrohlqe10-05-8477Tbr you deaf, or do you have serious difficulty hearingNo 06/08/2024 3:04 PM Markus Crews RN [facility] SystemMnyqeo26-76-2714Nga you blind, or do you have serious difficulty seeing, even when wearing glassesNo 06/08/2024 3:04 PM Markus Crews RN [facility]04-01-2025Do you have serious difficulty walking or climbing stairsNo 06/08/2024 3:04 PM Markus Crews RN [facility]04-01-2025Do you have difficulty dressing or bathingYes 06/08/2024 3:04 PM [address] [address] HospitalIwcldx41-24-3348Lrppyrz of a physical, mental, or emotional condition, do you have difficulty doing errands alone such as visiting a physician's office or shoppingYes 06/08/2024 3:04 PM [address] RN [facility] HospitalZhwfyw02-99-4300Cotolonqdu StatusN/Kike-[facility] Surgery Qgyhunkp03-00-1602Cxz you deaf, or do you have serious difficulty hearingNo 10/04/2023 11:49 AM Hayley Parrish RN [facility] SystemBziaul87-25-4834Nqf you blind, or do you have serious difficulty seeing, even when wearing glassesNo 10/04/2023 11:49 AM Hayley Parrish RN NoCSt. Mary's Medical CenterMtpkku90-59-8284Ho you have serious difficulty walking or climbing stairsNo 10/04/2023 11:49 AM Hayley Parrish RN [facility]07-27-2024Do you have difficulty dressing or bathing No 10/04/2023 11:49 AM Hayley Parrish RN [facility] SystemBlpjmn82-60-8323Nfnjprq of a physical, mental, or emotional condition, do you have difficulty doing errands alone such as visiting a physician's office or shoppingNo 10/04/2023 11:49 AM Hayley Parrish RN [facility] SystemRkpojr57-86-6870Zugukushxk StatusN/A [facility]08-23-2023Functional StatusN/AExec[facility]06-28-2023 Functional StatusNoExec[facility] 27-29-8848Fvifoiunnn StatusN/AGeneral Surgery [place] Mental Status CsfjYvecqrazbtHmkedsEqkwjpgx07-70-9924Jzmkvdf of a physical, mental, or emotional condition, do you have serious difficulty concentrating, remembering, or making decisionsYes 06/08/2024 3:04 PM [address] RN [facility] HospitalOwtkap25-64-2593Fscsbli of a physical, mental, or emotional condition, do you have serious difficulty concentrating, remembering, or making decisionsNo 10/04/2023 11:49 AM Hayley Parrish RN [facility] Clinical Notes 05-07-2022 to 12-24-2024 Note Date & ClcvJuviRejpknep87-00-6258 NoteUT Cardiology - [facility] Donavan Rodriguez is a 69 y.o. year old [...] normal. Allergies Allergies[1] Medica (more content not included)...[facility] 11-23-2024 NoteGeneral Surgery Office/Clinic Note Chief Complaint [...] 5 mg= 1 t (more content not included)...[facility] HospitalComment on above:Result Comment: Electronically Signed By: VAMSI JERNIGAN, Camryn Baker\Date and Time Signed: 11/23/24 15:15 BKJ93-30-8058 History of Present illness Narrative* Mahamed Gray DPM - 10/06/2024 4:15 PM EDT Images [...] plantarly bilaterally. Physical Exam documented in this encounterKansas City VA Medical CenterKdswkubffn73-67-9439 History of Present illness Narrative* Mahamed Gray [...] Patient was advised that we will contact [facility] [facility] that specializes in braces tosee if [...] 4. Reappoint: 1 week. documented in this encounterKansas City VA Medical [id number] NoteMatthew [place]ille [address]-08-2025 History of Present illness Narrative* Alfonso Loyd PA-C - 07/15/2024 9:04 AM EDT Images from the original note were not included. SPINE SURGERY FOLLOW UP This is a virtual visit using [employer] Video Visit. It required patient- provider interaction for the medical decision making as documented below. I have communicated my name and active licensure. The patient's identity and physical location wereverified at the time of this visit. Either the patient or their legal traffic representative has been informed of the risks [...] TIME: 9:13 AM PAGER: documented in this encounterU[facility]04-22-2025 NoteK[facility]04-22-2025 History of Present illness Narrative* Alfonso Loyd PA-C - 06/29/2024 9:18 AM EDT Images from the original note were not included. SPINE SURGERY FOLLOW UP This is a virtual visit using [employer] Zoom Video Visit. It required patient- provider interaction for the medical decision making as documented below. I have communicated my name and active licensure. The patient's identity and physical location wereverified at the time of this visit. Either the patient or their legal traffic representative has been informed of the risks [...] advised to coordinate cardiology care with existing speed reading teacher in [place] since he does not want to come to [facility]. The majority of the visit was spent counseling and/or coordinating care for the patient. Total faceto face time was 30 minutes. SIGNATURE: Alfonso Loyd PA-C PATIENT NAME: Braden Rodriguez DATE: June 29, 2024 TIME: 9:20 AM PAGER: documented in this encounterU[facility]04-14-2025 Telephone encounter Note * Telephone Encounter - Khushboo Mazariegos RN - 06/21/2024 8:30 AM EDT Neuro SPINE CARE COORDINATION QUICK NOTE Patient requesting oxycodone refill. Last filled: 06/15/24 Surgery: 06/02/24 F/U: 06/29/24 [facility]04-14-2025 Miscellaneous Notes* Telephone Encounter - Khushboo Mazariegos RN - 06/21/2024 8:30 AM EDT Neuro SPINE CARE COORDINATION QUICK NOTE Patient requesting oxycodone refill. Last filled: 06/15/24 Surgery: 06/02/24 F/U: 06/29/24 documented in this encounterU[facility]04-09-2025 [facility]04-09-2025 History of Present illness Narrative* Garcia Lomax [...] concerns. Garcia Lomax LPN documented in this encounterUc [facility]04-07-2025 Telephone encounter Note * Telephone Encounter - [...] Taking Oxycodone 2 every 5 hours. [facility]04-07-2025 Miscellaneous Notes* Telephone Encounter - Emelia Haider [...] 2 every 5 hours. documented in this encounterUc [facility]04-04-2025 Telephone encounter Note * Telephone Encounter - [...] RN June 11, 2024 11:30 AM [facility] Work Phone: 1(795) 531-839104-04-2025 Miscellaneous Notes* Telephone Encounter - Viridiana Luciano [...] 11, 2024 11:30 AM documented in this encounterUc [facility] Hospital04-03-2025 Telephone encounter Note * Telephone Encounter - Gladis Cabello RN - 06/10/2024 12:46 PM EDT Operations During Hospitalization: 06/02/2024: C3, C7 dome laminectomy, C4-6 laminoplasty [facility]04-03-2025 Miscellaneous Notes* Telephone Encounter - Gladis Cabello RN - 06/10/2024 12:46 PM EDT Operations During Hospitalization: 06/02/2024: C3, C7 dome laminectomy, C4-6 laminoplasty documented in this encounterUc [facility]04-02-2025 Telephone encounter Note * Telephone Encounter - Gladis Cabello RN - 06/09/2024 11:57 AM EDT Operations During Hospitalization: 06/02/2024: C3, C7 dome laminectomy, C4-6 laminoplasty Shared with RN team for review. [facility]04-02-2025 Miscellaneous Notes* Telephone Encounter - Gladis Cabello RN - 06/09/2024 11:57 AM EDT Operations During Hospitalization: 06/02/2024: C3, C7 dome laminectomy, C4-6 laminoplasty Shared with RN team for review. documented in this encounterUc [facility] Hospital04-01-2025 NoteK[facility]04-01-2025 NoteK[facility]04-01-2025 NoteK[facility]03-31-2025 NoteHNO ID: [id number] Author: MARKUS VIVEROS RN Service: Nursing Author Type: Registered Nurse Type: Nursing Progress Note Filed: 06/07/2024 18:52 Note Text: Pt refusing telemetry. Mariel De Leon notified.[facility] 06-07-2024 NoteK[facility]03-31-2025 NoteK[facility]03-30-2025 NoteK[facility]03-29-2025 NoteK[facility]03-28-2025 NoteK[facility]03-27-2025 Note [facility]03-27-2025 NoteK[facility]03-27-2025 NoteK[facility]03-27-2025 NoteK[facility] 06-03-2024 NoteK[facility]03-26-2025 NoteK[facility]03-26-2025 NoteK[facility]03-26-2025 NoteK[facility]03-26-2025 NoteK[facility]03-10-2025 Note [facility]03-10-2025 History of Present illness Narrative* Olesya Veras, PATRICIA - 05/17/2024 9:32 AM EDT Patient referred to Blood Management for pre-surgical optimization. Hgb 14.9 which exceeds Blood Management guidelines for intervention. documented in this encounterUc [facility]03-07-2025 History of Present illness Narrative* Zhang Rodríguez [...] PATIENT PRESENTS WITH AN IMPLANTABLE OR ATTACHED SENIOR ENGINEER: No RADIOLOGY DEPARTMENT: CT; Exam(s) Completed: CSP PERIPHERAL IV DATA: Not applicable SIGNED BY: DEON Sierra May 14, 2024 9:44 AM documented in this encounterUc [facility] Hospital03-07-2025 NoteHNO ID: [id number] Author: ZHANG RODRÍGUEZ CT Service: Radiology Author [...] PATIENT PRESENTS WITH AN IMPLANTABLE OR ATTACHED SENIOR ENGINEER: No RADIOLOGY DEPARTMENT: CT; Exam(s) Completed: CSP PERIPHERAL IV DATA: Not applicable SIGNED BY: DEON Sierra May 14, 2024 9:44 [facility]-2025 NoteKettering [facility] Center03-05-2025 History of Present illness Narrative* Katherine Keith [...] TIME: 12:22 PM PAGER: documented in this encounterUc [facility] Hospital03-05-2025 Instructions* Patient Instructions* Rhona Boss MD - 05/12/2024 8:53 AM EST Images from the original note were not included. [facility] PATIENT PREOPERATIVE INSTRUCTIONS Katherine Keith MD has scheduled you for your procedure at this surgery center: [facility] [place] Scheduling Office: [phone] --[address] [place] [address]. Please read below carefully for your personalized [...] office. If you are currently using a [id number] injectable or oral medication for diabetes or [...] or other anticoagulants without consulting with your speed reading teacher or prescribing physician. - Stop ALL herbal [...] please check with your dialysis center or scientific recruiter to see if any adjustments need to [...] Procedures: - YOU MUST HAVE A RESPONSIBLE SALVAGE REPAIRER TAKE YOU HOME. A MOTION PICTURE CRITIC OR NOODLE MAKER CANNOT BE MADE A RESPONSIBLE SALVAGE REPAIRER. - We recommend that a responsible person [...] call the Friday before. Your surgeon s flight crew scheduler will tell you what time to call the office. - If you have not reached the departmental flight crew scheduler by 5 P.M., call [phone] after 5 P.M. the day before your surgery. Please be aware that emergency situations arise, which may delay or change your surgical time. If this happens, we will notify you as soon as possible and regret any inconvenience. If you already have an Advance Directive, please fax a copy to [phone] or email to for it to be [...] day. Rhona Boss MD documented in this encounterUc [facility]03-05-2025 History and physical note * Rhona Boss [...] [facility] Procedure:: [facility] Status of surgery/procedure:: Scheduled Date of surgery/procedure:: [...] fevers. Neurological: No history of TIA's, stroke, GARDENER FLORIST tumor, impaired sensorium, hemiplegia, paraplegia orquadraplegia. No [...] 402 QTC Calculation (Bazett) 411 Calculated P [place] 59 Calculated R Court[place] 48 Calculated T [place] 72 Impression NORMAL SINUS RHYTHM POSSIBLE LEFT ATRIAL ENLARGEMENT BORDERLINE ECG No results found for this or any previous visit (from the past 24915 hours). Instructions Given to Patient: Instructions located in the after visit summary. Patient given verbal and written preop instructions and voices comprehension and compliance. SIGNATURE: Rhona Boss MD PATIENT NAME: Braden Rodriguez DATE: May 12, 2024 TIME: 8:38 AM PAGER/CONTACT #: [facility]03-05-[facility] History and physical note* Rhona Boss MD - 05/12/2024 8:38 AM EST Images from the original note were not included. [facility]est[facility] HISTORY [...] [facility]:: [facility] Status of surgery/procedure:: Scheduled Date of surgery/procedure:: [...] fevers. Neurological: No history of TIA's, stroke, GARDENER FLORIST tumor, impaired sensorium, hemiplegia, paraplegia orquadraplegia. No [...] 402 QTC Calculation (Bazett) 411 Calculated P [place] 59 Calculated R [place] 48 Calculated T [place] 72 Impression NORMAL SINUS RHYTHM POSSIBLE LEFT ATRIAL ENLARGEMENT BORDERLINE ECG No results found for this or any previous visit (from the past 74237 hours). Instructions Given to Patient: Instructions located in the after visit summary. Patient given verbal and written preop instructions and voices comprehension and compliance. SIGNATURE: Rhona Boss MD PATIENT NAME: Braden Rodriguez DATE: May 12, 2024 TIME: 8:38 AM PAGER/CONTACT #: documented in this encounterUc [facility] Hospital02-26-2025 NoteKettering [facility]02-26-2025 History of Present illness Narrative* Katherine Keith MD - 05/05/2024 3:11 PM EST Virtual visit: I have communicated my name and active licensure. The patient's identity and physical location wereverified at the time of this visit. Either the patient or their legal traffic representative has been informed of the risks and benefits of -- and alternatives to -- treatment through a remote evaluation andconsents to proceed with the evaluation remotely. 10 minutes Follow up virtual visit. Last seen 01/12/25 and we decided to continuing to monitor his right foot drop which persisted. His left foot was starting to make some progress. 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 He feels like [...] laminoplasty Katherine Keith MD documented in this encounterUc [facility] Hospital12-14-2024 History of Present illness Narrative* Joseph Carter [...] PATIENT PRESENTS WITH AN IMPLANTABLE OR ATTACHED SENIOR ENGINEER: No RADIOLOGY DEPARTMENT: MR; Exam(s) Completed: Spine: Cervical spine PERIPHERAL IV DATA: Not applicable SIGNED BY: RT Lydia(R) February 21, 2024 4:25 PM documented in this encounterUc [facility] Hospital12-14-2024 NoteKettering [facility] Center11-26-2024 Telephone encounter Note* Telephone Encounter - Melody Castaneda RN - 02/03/2024 8:53 AM EST Attempted to contact patient regarding Cervical MRI that was ordered Left detailed message on patient identified voicemail. Number to schedule provided. [facility]11-26-2024 Miscellaneous Notes* Telephone Encounter - Melody Castaneda RN - 02/03/2024 8:53 AM EST Attempted to contact patient regarding Cervical MRI that was ordered Left detailed message on patient identified voicemail. Number to schedule provided. documented in this encounterUc [facility] Hospital11-05-2024 NoteK[facility]11-05-2024 History of Present illness Narrative* Katherine Keith [...] Sampson Christopher MD (AJ) documented in this encounterUc [facility] Hospital11-05-2024 NoteKettering [facility] Center11-05-2024 History of Present illness Narrative* Letty Mckeon [...] Care Visit completed when applicable. Mis Grimes, cell lead B.S. TJIM Letty Mckeon MD documented in this encounterUc [facility] Hospital11-05-2024 History of Present illness Narrative* Mo Sainz, RT(R) - 01/13/2024 8:30 AM EST Radiology [...] PATIENT PRESENTS WITH AN IMPLANTABLE OR ATTACHED SENIOR ENGINEER: No RADIOLOGY DEPARTMENT: MR; Exam(s) Completed: Spine: Thoracic spine and Lumbar spine PERIPHERAL IV DATA: Not applicable SIGNED BY: RT Blossom(R) January 13, 2024 7:51 AM documented in this encounterUc [facility] Hospital11-05-2024 NoteKet[facility] Center11-05-2024 History of Present illness Narrative* Aaron Pitts [...] PATIENT PRESENTS WITH AN IMPLANTABLE OR ATTACHED SENIOR ENGINEER: No RADIOLOGY DEPARTMENT: CT; Exam(s) Completed: Spine PERIPHERAL IV DATA: Not applicable SIGNED BY: RT Cj(R) January 13, 2024 8:52 AM documented in this encounterUc West [facility] Hospital11-05-2024 NoteKettering [facility] Center09-27-2024 Telephone encounter Note* Telephone Encounter - Melody Castaneda RN - 12/05/2023 9:11 AM EDT Called patient to follow up after steroid taper. No answer. Left message to return call to the office. [facility]09-27-[facility] Miscellaneous Notes* Telephone Encounter - Melody Castaneda RN - 12/05/2023 9:11 AM EDT Called patient to follow up after steroid taper. No answer. Left message to return call to the office. documented in this encounterUc [facility] Hospital09-05-2024 Note* Addendum Note - Alfonso Loyd PA-C - 11/13/2023 4:25 PM EDTAddended by: ALFONSO LOYD on: 11/13/2023 04:25 PM Modules accepted: Orders [facility]09-05-2024 Miscellaneous Notes* Addendum Note - Alfonso Loyd PA-C - 11/13/2023 4:25 PM EDTAddended by: ALFONSO LOYD on: 11/13/2023 04:25 PM Modules accepted: Orders documented in this encounterUc [facility] Hospital09-04-2024 NoteKet[facility]09-04-2024 History of Present illness Narrative* Katherine Keith MD - 11/12/2023 2:47 PM EDT Images [...] above Meenakshi Morin MD Spine Surgery Fellow [phone] [facility]: [facility] ([facility]) Mandaeism: [id number] I reviewed the information obtained and documented by the fellow. I examined the patient and evaluated all available films and pertinent documents. We discussed the case and I agree with the plans asoutlined in this note. SIGNATURE: Katherine Keith MD PATIENT NAME: Braden Rodriguez DATE: November 12, 2023 TIME: 2:47 PM PAGER: documented in this encounterUc [facility] Hospital09-04-2024 History of Present illness Narrative* Viry Celaya RT(Michael) - 11/12/2023 1:10 PM EDT Radiology Service [...] PATIENT PRESENTS WITH AN IMPLANTABLE OR ATTACHED SENIOR ENGINEER: No RADIOLOGY DEPARTMENT: General X-ray: Exam(s) Completed: Spine X-Ray(s): Lumbar AP / LAT / L5-S1 PERIPHERAL IV DATA: Not applicable SIGNED BY: MARY Li) November 12, 2023 1:13 PM documented in this encounterUc West [facility] Hospital09-04-2024 NoteK[facility]09-03-2024 Telephone encounter Note* Telephone Encounter - Melody [...] he voiced appreciation for the call [facility]09-03-2024 Miscellaneous Notes* Telephone Encounter - Melody Castaneda [...] call to the office. documented in this encounterUc West [facility] Hospital09-03-2024 Telephone encounter Note * Telephone Encounter - Melody Castaneda RN - 11/11/2023 4:04 PM EDT Attempted to contact patient to discuss his my chart message and medication refill request. Left message to return call to the office. [facility]08-28-[facility] Telephone encounter Note* Telephone Encounter - Melody Castaneda RN - 11/05/2023 3:44 PM EDT Prior auth completed, awaiting approval [facility]08-28-2024 Miscellaneous Notes* Telephone Encounter - Melody Castaneda RN - 11/05/2023 3:44 PM EDT Prior auth completed, awaiting approval * Telephone Encounter - Mann Benavides - 11/05/2023 12:37 PM EDT [facility] called re Rx Refill, needs a Pre-auth because insurance only cover 2 refills. Pls do the pre-auth through: covermymeds. The gibbons: [id number] (low/upper is ok). Pls let [facility] know once it's approved by call [phone] documented in this encounterUc West Chester Hospital08-28-2024 Telephone encounter Note * Telephone Encounter - Melody Castaneda RN - 11/05/2023 3:43 PM EDT Prior auth completed [id number] [facility]08-28-2024 Miscellaneous Notes* Telephone Encounter - Melody Castaneda RN - 11/05/2023 3:43 PM EDT Prior auth completed [id number] * Telephone Encounter - Tara Sarabia - 11/05/2023 2:04 PM EDT Received a fax from Cover My Med[employer] requesting a prior authorization for: Hydrocodone-Acetaminophen 5-325 MG Tablets Cover My Meds Gibbons: [id number] Pharmacy: [id number] Fax scanned in to pt's chart for our records. documented in this encounterUc West Chester Hospital08-28-2024 Telephone encounter Note * Telephone Encounter - Tara Sarabia - 11/05/2023 2:04 PM EDT Received a fax from [employer] requesting a prior authorization for: Hydrocodone-Acetaminophen 5-325 MG Tablets Cover My Meds Gibbons: [id number] Pharmacy: [id number] Fax scanned in to pt's chart for our records. [facility]08-28-[facility] Telephone encounter Note* Telephone Encounter - Mann Benavides - 11/05/2023 12:37 PM EDT [facility] called re Rx Refill, needs a Pre-auth because insurance only cover 2 refills. Pls do the pre-auth through: covermymeds. The gibbons: [id number] (low/upper is ok). Pls let [facility] know once it's approved by call [phone] [facility]08-15-2024 Note* Addendum Note - Alfonso Loyd PA-C - 10/23/2023 11:22 AM EDTAddended by: ALFONSO LOYD on: 10/23/2023 11:22 AM Modules accepted: Orders [facility]08-15-2024 Miscellaneous Notes* Addendum Note - Alfonso Loyd PA-C - 10/23/2023 11:22 AM EDTAddended by: ALFONSO LOYD on: 10/23/2023 11:22 AM Modules accepted: Orders * Telephone Encounter - Melody Castaneda RN - 10/23/2023 11:03 AM EDT Called [facility] pharmacy and confirmed they do not have the [place] available. Pharmacist cancelled order. Will update JUDY to send to new pharmacy listed. documented in this encounterUc [facility] Hospital08-15-2024 Telephone encounter Note * Telephone Encounter - Melody Castaneda RN - 10/23/2023 11:03 AM EDT Called [facility] pharmacy and confirmed they do not have the [place] available. Pharmacist cancelled order. Will update JUDY to send to new pharmacy listed. [facility]08-13-2024 NoteKettering [facility] Center08-13-2024 History of Present illness Narrative* Alfonso Loyd PA-C - 10/21/2023 8:40 AM EDT SPINE SURGERY FOLLOW UP This is a virtual visit using [employer] Zoom Video Visit. It required patient- provider interaction for the medical decision making as documented below. I have communicated my name and active licensure. The patient's identity and physical location wereverified at the time of this visit. Either the patient or their legal traffic representative has been informed of the risks [...] TIME: 8:40 AM PAGER: documented in this encounterUc [facility] Hospital08-08-2024 Telephone encounter Note * Telephone Encounter - Melody Castaneda RN - 10/16/2023 4:58 PM EDT Noted medication update. No Issue for change from surgical standpoint. [facility]08-08-20[facility] Miscellaneous Notes* Telephone Encounter - Melody Castaneda [...] to Lyrica 50 mg. documented in this encounterUc West Chester Hospital08-08-2024 Telephone encounter Note * Telephone Encounter - Vanessa Aguirre - 10/16/2023 10:19 AM EDT Naye from Dr. Ester Cain's office called. Pt was seen yesterday complaining of the side effect from Gabapentin and the doctor change the medication to Lyrica 50 mg. [facility] Work Phone: 1(523) 778-948508-01-2024 Note* Addendum Note - Alfonso Loyd PA-C - 10/09/2023 3:44 PM EDTAddended by: ALFONSO LOYD on: 10/09/2023 03:44 PM Modules accepted: Orders [facility]08-01-2024 Miscellaneous Notes* Addendum Note - Alfonso Loyd PA-C - 10/09/2023 3:44 PM EDTAddended by: ALFONSO LOYD on: 10/09/2023 03:44 PM Modules accepted: Orders documented in this encounterUc [facility] Hospital07-27-2024 [facility]07-27-2024 NoteK[facility]07-27-2024 NoteK[facility]07-26-2024 NoteK[facility]07-26-2024 Note [facility]07-25-2024 NoteK[facility]07-25-2024 NoteK[facility]07-23-2024 Telephone encounter Note* Telephone Encounter - Aaron Garcia - 09/30/2023 3:28 PM EDTSummary: Research Interest: POUR study I spoke with [...] Student Visiting Researcher OUTCOMES RESEARCH MAIN [facility]07-23-2024 Miscellaneous Notes* Telephone Encounter - Aaron Garcia - 09/30/2023 3:28 PM EDTSummary: Research Interest: POUR study I spoke with [...] Researcher OUTCOMES RESEARCH MAIN documented in this encounterUc West Chester Hospital07-23-2024 NoteKettering [facility] Center07-23-2024 History of Present illness Narrative* Melody Castaneda RN - 09/30/2023 10:00 AM EDT Neuro SPINE CARE COORDINATION PRE-OP VISIT Met with patient via phone for pre op education. Given both written and verbal instructions re : Skin prep, wound care, pain management and post op restrictions. Provided to patient: [facility] Surgery Guide, skin prep supplies, Spine Surgery Pre/post op education packet. Yes Reviewed with patient to report to desk J19 for surgery ? Yes. Reviewed with the patient to call [phone] the day before to get surgery report [...] daughter. Melody Castaneda RN documented in this encounterUc West [facility] Hospital07-17-2024 Telephone encounter Note * Telephone Encounter - Judi McleanDALLAS - 09/24/2023 1:00 PM EDT CARE CONTINUUM ADVISOR ASSESSMENT PRIMARY CARE PHYSICIAN: Ester Cain MD OR Surgery Date: 10/02/23 Health Insurance: GLO [facility] Financial Resources: Retired Primary Contact: Extended Emergency Contact Information Primary Emergency Contact: Marycarmen Rodriguez Address: [address] [place] [address] [place] Relation: Spouse Secondary Emergency Contact: NORA RODRIGUEZ Mobile Relation: Son Other Important Patient Contacts: None 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 No FREEDOM OF CHOICE: Level of Care Discussed: Home Care Financial Disclosure Provided: No Financial Disclaimer Provided: No Provider List: Home Care Provider list within the patient's requested geographic area shared with the patient/family: Yes - Within [address] of [address] [place] [address] Provider Choices Collected Home Health: no prefernece Interventions: N/A SIGNATURE: DALLAS Barros PATIENT NAME: Braden Rodriguez DATE: September 24, 2023 TIME: 1:00 PM PAGER/CONTACT #: [facility]07-17-2024 Miscellaneous Notes* Telephone Encounter - Judi Mclean LSW - 09/24/2023 1:00 PM EDT CARE CONTINUUM ADVISOR ASSESSMENT PRIMARY CARE PHYSICIAN: Ester Cain MD OR Surgery Date: 10/02/23 Health Insurance: GLO [facility] Financial Resources: Retired Primary Contact: Extended Emergency Contact Information Primary Emergency Contact: Marycarmen Rodriguez Address: [address] [place] [address] [place] Mobile Relation: Spouse Secondary Emergency Contact: NORA RODRIGUEZ Mobile Relation: Son Other Important Patient Contacts: None 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 No FREEDOM OF CHOICE: Level of Care Discussed: Home Care Financial Disclosure Provided: No Financial Disclaimer Provided: No Provider List: Home Care Provider list within the patient's requested geographic area shared with the patient/family: Yes - Within [address] of [address] [place] [address] Provider Choices Collected Home Health: no prefernece Interventions: N/A SIGNATURE: DALLAS Barros PATIENT NAME: Braden Rodriguez DATE: September 24, 2023 TIME: 1:00 PM PAGER/CONTACT #: * Telephone Encounter - Judi Mclean LSW - 09/24/2023 12:58 PM EDT CM was able to leave a brief detailed message on identified vm requesting call back to discuss postop care. CM provided contact information. [facility] Tele[facility] encounter Note * Telephone Encounter - Judi Mclean LSW - 09/24/2023 12:58 PM EDT CM was able to leave a brief detailed message on identified vm requesting call back to discuss postop care. CM provided contact information. [facility] Telephone encounter Note* Telephone Encounter - Melody Castaneda RN - 09/16/2023 3:36 PM EDT Attempted to return call to home care PT Patient is coming back in for surgery in 2 weeks. Does not nee home care at this time. [facility]-09-[facility] Miscellaneous Notes* Telephone Encounter - Melody Castaneda RN - 09/16/2023 3:36 PM EDT Attempted to return call to home care PT Patient is coming back in for surgery in 2 weeks. Does not nee home care at this time. * Telephone Encounter - Melia Adler - 09/16/2023 3:15 PM EDT Call received for Katherine Keith MD regarding Braden Rodriguez. [facility]er[facility] Patient Identified by Name and : Yes Reason for Call: Devin is calling to notify Dr. Keith that patient has not been seen for PT Devin states patient will not return calls Is there any additional information the provider should know? No, no response needed Last Office Visit: 09/04/2023 Next scheduled appointment: 10/08/2023 Best number to reach caller: Devin [phone] Best time to reach caller: 9 am till 5 pm Is it OK to leave a detailed voice message? Yes Melia Vieyra documented in this encounter[facility] Telephone encounter Note * Telephone Encounter - Melia Adler - 09/16/2023 3:15 PM EDT Call received for Katherine Keith MD regarding Braden Rodriguez. Caller: Other: Devin with [facility] Patient Identified by Name and : Yes Reason for Call: Devin is calling to notify Dr. Keith that patient has not been seen for PT Devin states patient will not return calls Is there any additional information the provider should know? No, no response needed Last Office Visit: 09/04/2023 Next scheduled appointment: 10/08/2023 Best number to reach caller: Devin [phone] Best time to reach caller: 9 am till 5 pm Is it OK to leave a detailed voice message? Yes Melia Ochoa Training Professional [facility] Note* Addendum Note - Stephane Fair PA-C - 09/15/2023 1:41 PM EDTAddended by: STEPHANE FAIR on: 09/15/2023 01:41 PM Modules accepted: Orders [facility]-08-[facility] Miscellaneous Notes* Addendum Note - Stephane Fair [...] Fair PA-C Spine Surgery documented in this encounterUc [facility]07-[facility]-2024 Telephone encounter Note * Telephone Encounter - [...] days. Stephane Fair PA-C Spine Surgery [facility]07-05-2024 Note* Addendum Note - Alfonso Loyd PA-C - 09/12/2023 2:35 PM EDTAddended by: ALFONSO LOYD on: 09/12/2023 02:35 PM Modules accepted: Orders [facility]-05-20[facility] Miscellaneous Notes* Addendum Note - Alfonso Loyd PA-C - 09/12/2023 2:35 PM EDTAddended by: ALFONSO LOYD on: 09/12/2023 02:35 PM Modules accepted: Orders documented in this encounterU[facility]07-03-2024 [facility] Note[facility]-2024 Note[facility]-20[facility] Note[facility]-2024 Note [facility]07-[facility]-2024 Note[facility]07-01-2024 Note[facility]-2024 [facility] 09-05-2023 Telephone encounter Note* Telephone Encounter - Emelia Haider RN - 09/05/2023 3:41 PM EDT Script was sent on 09/03. [facility] Miscellaneous Notes* Telephone Encounter - Emelia Haider RN - 09/05/2023 3:41 PM EDT Script was sent on 09/03. documented in this encounterU[facility]06-27-2024 Telephone encounter Note * Telephone Encounter - Winnie Quesada - 09/04/2023 12:49 PM EDT Pt has an order that is from [facility]. For Home Health Care. Marianne from [facility] called and said pt was refusing Home Health. I did as her to call the orderingPA, she wanted it noted in his chart here, as well [facility] Miscellaneous Notes* Telephone Encounter - Winnie Quesada - 09/04/2023 12:49 PM EDT Pt has an order that is from [facility]. For Home Health Care. Marianne from [facility] called and said pt was refusing Home Health. I did as her to call the orderingPA, she wanted it noted in his chart here, as well documented in this encounterU[facility]06-25-2024 Telephone encounter Note * Telephone Encounter - Tara Sarabia - 09/02/2023 3:31 PM EDT Patient phones requesting refills as follows: Requested Prescriptions Pending Prescriptions Disp Refills oxyCODONE IR (ROXICODONE) 5 mg immediate release tablet 42 tablet 0 Sig: Take 1 tablet by mouth every 4 hours for 7 days. Last visit: 08/29/2023 Pharmacy: [id number] Pharm[facility] Current Dosage: Patient is currently taking 1 tab every 4 hrs; Has enough for several days left. Please review and advise; ph: [phone] Tara Mix [facility] Miscellaneous Notes* Telephone Encounter - Tara Sarabia - 09/02/2023 3:31 PM EDT Patient phones requesting refills as follows: Requested Prescriptions Pending Prescriptions Disp Refills oxyCODONE IR (ROXICODONE) 5 mg immediate release tablet 42 tablet 0 Sig: Take 1 tablet by mouth every 4 hours for 7 days. Last visit: 08/29/2023 Pharmacy: [id number] Pharmacy Current Dosage: Patient is currently taking 1 tab every 4 hrs; Has enough for several days left. Please review and advise; ph: [phone] Tara Dawkins documented in this encounterU[facility]06-24-2024 Telephone encounter Note * Telephone Encounter - [...] with Dr Keith and follow up. [facility] Miscellaneous Notes* Telephone Encounter - Melody Castaneda [...] Keith and follow up. documented in this encounterU[facility]06-21-2024 Telephone encounter Note * Telephone Encounter - Melody Castaneda RN - 08/29/2023 10:29 AM EDT Returned call to pharmacy. Advised Vikas Loyd did speak to patient regarding stopping the [place] and taking Oxy. Also getting his pain medication through us during this post op time period. He voiced appreciation. No further questions. [facility] Miscellaneous Notes* Telephone Encounter - Melody Castaneda RN - 08/29/2023 10:29 AM EDT Returned call to pharmacy. Advised Vikas Loyd did speak to patient regarding stopping the [place] and taking Oxy. Also getting his pain medication through us during this post op time period. He voiced appreciation. No further questions. * Telephone Encounter - Winnie Quesada - 08/29/2023 9:26 AM EDT Call received for Katherine Keith MD regarding Braden Rodriguez. Caller: Sandeep, Pharmacist [facility] Patient Identified by Name and [...] appointment: 10/08/2023 Best number to reach caller: [phone] Best time to reach caller: any Is it OK to leave a detailed voice message? Yes Winnie Quesada documented in this encounterU[facility]06-21-2024 Telephone encounter Note * Telephone Encounter - Winnie Quesada - 08/29/2023 9:26 AM EDT Call received for Katherine Keith MD regarding Braden Rodriguez. Caller: Sandeep, Pharmacist [facility] Patient Identified by Name and [...] appointment: 10/08/2023 Best number to reach caller: [phone] Best time to reach caller: any Is it OK to leave a detailed voice message? Yes Winnie Quesada [facility]06-[facility]-2024 NoteK[facility]06-21-2024 History of Present illness Narrative* Alfonso Loyd PA-C - 08/29/2023 8:20 AM EDT SPINE SURGERY FOLLOW UP This is a virtual visit using [employer] Visit. It required patient- provider interaction for the medical decision making as documented below. I have communicated my name and active licensure. The patient's identity and physical location wereverified at the time of this visit. Either the patient or their legal traffic representative has been informed of the risks [...] operative pain is now more tolerable. Using [place] from his PCP which is not as [...] His PCP filled his lat prescription for [place] which is not providing relief. We discussed [...] TIME: 8:20 AM PAGER: documented in this encounterUc [facility]06-14-2024 NoteK[facility]06-13-2024 NoteK[facility]06-13-2024 NoteK[facility]06-12-2024 NoteK[facility]06-12-2024 Note [facility]06-12-2024 NoteK[facility]06-12-2024 NoteK[facility]06-11-2024 NoteK[facility] 08-19-2023 NoteK[facility]06-11-2024 NoteK[facility]06-03-2024 Telephone encounter Note* Telephone Encounter - Judi Mclean LSW - 08/11/2023 12:57 PM EDT CM was able to leave a brief detailed message on identifed vm requesting call back to discuss post op care. CM provided contact information. [facility] Miscellaneous Notes* Telephone Encounter - Judi Mclean LSW - 08/11/2023 12:57 PM EDT CM was able to leave a brief detailed message on identifed vm requesting call back to discuss post op care. CM provided contact information. documented in this encounterU[facility]06-02-2024 NoteK[facility]06-02-2024 History of Present illness Narrative* Olesya Veras RN - 08/10/2023 10:56 AM EDT Patient referred to Blood Management for pre-surgical optimization. Hgb 15.1 which exceeds Blood Management guidelines for intervention. documented in this encounterUc [facility]05-29-2024 History and physical note * Sanam Gill [...] over the last year. Relieving factors include [place] and steroids. Aggravating factors include repetitive movement. [...] fevers. Neuro: No history of TIA's, stroke, GARDENER FLORIST tumor, impaired sensorium, hemiplegia, paraplegia or quadraplegia. No neurological symptoms or problems. Respiratory: No history of current cough or dyspnea, or pneumonia in the past 6 weeks. No history of respiratory/pulmonary symptoms or problems. Cardiovascular:+htn, SVT Negative for Recent DC, Angina, CAD, Chest Pain GI: No history [...] Specific Question: Does consulting provider have [facility] access? Answer: Yes Type and Screen, [...] Braden Rodriguez DATE: 08/06/2023 TIME: 10:18 AM [facility] History and physical note* Sanam Gill PA-C [...] over the last year. Relieving factors include [place] and steroids. Aggravating factors include repetitive movement. [...] fevers. Neuro: No history of TIA's, stroke, GARDENER FLORIST tumor, impaired sensorium, hemiplegia, paraplegia or quadraplegia. No neurological symptoms or problems. Respiratory: No history of current cough or dyspnea, or pneumonia in the past 6 weeks. No history of respiratory/pulmonary symptoms or problems. Cardiovascular:+htn, SVT Negative for Recent DC, Angina, CAD, Chest Pain GI: No history [...] 08/06/2023 TIME: 10:18 AM documented in this encounterUc [facility]05-24-2024 Telephone encounter Note * Telephone Encounter - Tara Sarabia - 08/01/2023 11:03 AM EDT Duplicate, patient already spoke to RN (see phone encounter). [facility] Miscellaneous Notes* Telephone Encounter - Tara Sarabia - 08/01/2023 11:03 AM EDT Duplicate, patient already spoke to RN (see phone encounter). documented in this encounterUc [facility]05-24-2024 Telephone encounter Note * Telephone Encounter - Melody Castaneda RN - 08/01/2023 10:51 AM EDT Patient accepts sooner date of 08/18 New education class on 08/11 at 2 PM Will change post ops He voiced appreciation. No further questions. [facility] Miscellaneous Notes* Telephone Encounter - Melody Castaneda RN - 08/01/2023 10:51 AM EDT Patient accepts sooner date of 08/18 New education class on 08/11 at 2 PM Will change post ops He voiced appreciation. No further questions. * Telephone Encounter - Melia Adler - 08/01/2023 9:41 AM EDT Patient is returning nurse call pertaining to below message, sooner appt call back [phone] * Telephone Encounter - Melody Castaneda RN - 08/01/2023 9:01 AM EDT Called patient to offer sooner surgery date Left message to return call to the office documented in this encounterUc [facility]05-24-2024 Telephone encounter Note * Telephone Encounter - Melia Adler - 08/01/2023 9:41 AM EDT Patient is returning nurse call pertaining to below message, sooner appt call back [phone] [facility] Instructions* Patient Instructions* Sanam Gill PA-C - 08/01/2023 9:35 AM EDT PATIENT PREOPERATIVE INSTRUCTIONS Katherine Keith MD has scheduled you for your procedure at this surgery center: [facility] [place] Scheduling Office: [phone] --[address] [place] [address]. Please read below carefully for your personalized instructions. Arrival Time for Surgery: - To obtain your arrival time for surgery, call your physician's office the day before your surgery. - If your surgery is scheduled for Friday, call the Friday before. Your surgeon s flight crew scheduler will tell you what time to call the office. - If you have not reached the departmental flight crew scheduler by 5 P.M., call [phone] after 5 P.M. the day before your [...] Advance Directive, please fax a copy to [phone] or email to for it to be [...] day. Sanam Gill PA-C documented in this encounterUc [facility]05-24-2024 Telephone encounter Note * Telephone Encounter - Melody Castaneda RN - 08/01/2023 9:01 AM EDT Called patient to offer sooner surgery date Left message to return call to the office [facility]-06-[facility] Telephone encounter Note* Telephone Encounter - Garcia Lomax LPN - 07/14/2023 12:11 PM EDT Received, Reviewed [place] Disability Attending Physician Statement FLMA forms and need signed by Dr. Keith Sent to Dr. Keith via Docusign for signature Leave dates: 09/02/23-11/07/23 No Post op appt scheduled as of yet. Garcia Maldonado LPN [facility]05-06-2024 Miscellaneous Notes* Telephone Encounter - Garcia Lomax LPN - 07/14/2023 12:11 PM EDT Received, Reviewed [facility] Disability Attending Physician Statement [employer] forms and need signed by Dr. Keith Sent to Dr. Keith via Docus[employer] for signature Leave dates: 09/02/23-11/07/23 No Post op appt scheduled as of yet. Garcia Maldonado LPN documented in this encounterUc [facility]04-04-2024 Miscellaneous Notes* Telephone Encounter - Melody Castaneda [...] 06/12/2023 2:43 PM EDT I received [employer] financial forms for LTD. I called patient to explain we don't complete LTD, but he stated that he is not currently working and have exhausted his STD. He states the form is due 06/12/23. Sending to CC. Oliver to review * Telephone Encounter - Gavi Mix Tara - 06/11/2023 5:29 PM EDT Received Attending Physician's Statement from [facility]. Sent via [employer] for processing. documented in this encounterUc [facility]03-21-2024 Miscellaneous Notes* Telephone Encounter - Melody Castaneda [...] Lumbar N/A TREK/ N/A documented in this encounterUc [facility] Hospital02-25-2024 History of Present illness Narrative* Blanca Price, RT(R) - 05/04/2023 8:00 AM EST Radiology [...] PATIENT PRESENTS WITH AN IMPLANTABLE OR ATTACHED SENIOR ENGINEER: No RADIOLOGY DEPARTMENT: CT; Exam(s) Completed: Spine PERIPHERAL IV DATA: Not applicable SIGNED BY: MARY Gomes) May 04, 2023 8:09 AM documented in this encounterUc [facility] Hospital02-25-2024 NoteHNO ID: [id number] Author: BLANCA PRICE RT(R) Service: Radiology Author [...] PATIENT PRESENTS WITH AN IMPLANTABLE OR ATTACHED SENIOR ENGINEER: No RADIOLOGY DEPARTMENT: CT; Exam(s) Completed: Spine PERIPHERAL IV DATA: Not applicable SIGNED BY: RT Eliseo(Michael) May 04, 2023 8:09 AMSan Juan [phone] History of Present illness Narrative* Douglas Menchaca [...] PATIENT PRESENTS WITH AN IMPLANTABLE OR ATTACHED SENIOR ENGINEER: No RADIOLOGY DEPARTMENT: General X-ray: Exam(s) Completed: Spine X-Ray(s): Scoliosis Series PERIPHERAL IV DATA: Not applicable SIGNED BY: RT Jimbo(R) April 30, 2023 1:42 PM documented in this encounterUc [facility] Hospital02-21-2024 History of Present illness Narrative* Katherine Keith [...] Ester Cain MD REFERRING PROVIDER: Tello Angeles [id number] [facility] [place] [id number] Consult requested for an opinion regarding the [...] lumbar radiculopathy, all done at outside facilities. [id number] he had a single level decompression which [...] TIME: 11:51 AM PAGER: documented in this encounterUc [facility] Hospital02-21-2024 History of Present illness Narrative* Viry Celaya [...] PATIENT PRESENTS WITH AN IMPLANTABLE OR ATTACHED SENIOR ENGINEER: No RADIOLOGY DEPARTMENT: General X-ray: Exam(s) Completed: Spine X-Ray(s): Lumbar AP / LAT / L5-S1 / FLEX-EXT PERIPHERAL IV DATA: Not applicable SIGNED BY: RT Guillermo(Michael) April 30, 2023 10:47 AM documented in this encounterUc [facility] Hospital01-12-2024 History of Present illness Narrative* Alfonso Loyd PA-C - 03/21/2023 5:54 AM EST Requesting to see Dr. Keith Left leg pain, trouble walking, numbness in the leg, weakness. He has tried: PT, NSAID, steroids, MR, Tramadol Previous surgery x 3 at [facility] Lumbar MRI report with severe central stenosis of L3-4 and L4-5. XR ordered for an appointment withDr. Keith. * Gabbi Fox N - 03/19/2023 10:11 AM EST Patient name: Braden Rodriguez Are you being referred by a Center for Spine Health Provider or Pain Management Provider at [facility]? No If answer is YES please [...] where the MRI/CT/myelogram was completed: [facility] [place] [address] [place] [address] MRI/CT/myelogram viewable in Epic: No If not, please provide [phone] to fax in imaging reports for review. Also, please inform patient to hand carry imaging disc to appointment. XR (spine) within 12 months: Yes If YES, please ask for the name/address of the facility where the XR was completed: Dr. Tello Angeles MD [address], [place] [address] Dr. Davis's patients: Have you had previous [...] Starting PT 03/20/2023 for drop foot [facility] [address] [place] [address] Have you tried any other kinds of [...] where the surgery was completed: 1999 laminectomy [facility] 2012 lumbar surgery [facility] 2018 [facility] Additional Comments [phone] documented in this encounterUc [facility] Hospital09-28-2023 Hospital Discharge instructions Patient Education 12/05/2022 12:42:33 [...] treatment? Where to find more information The [employer]: www.cancer.org [employer]: www.auanet.org Contact a health care [...] provider. Document Revised: 08/20/2021 Document Reviewed: 08/20/2021 TCM Bertha Patient Education 2022 [employer]. Follow Up Care 11/27/2022 14:43:00 With:Kahlil JERNIGAN, MARLENA Salmon, URO Address: When: Unknown [facility] 08-23-2023 Hospital Discharge instructions Patient Education 10/30/2022 [...] treatment? Where to find more information The [employer]: www.cancer.org [employer] Association: www.auanet.org Contact a health care [...] provider. Document Revised: 08/20/2021 Document Reviewed: 08/20/2021 TCM Bertha Patient Education 2022 [employer]. Follow Up Care 09/04/2022 08:48:35 With:Kahlil JERNIGAN, Shae Powell URL, URO Address: When:Within 2 Month(s) Comments:w/PSA [facility] 06-28-2023 Hospital Discharge instructions Patient Education [...] treatment? Where to find more information The [employer]: www.cancer.org [employer] Association: www.auanet.org Contact a health care [...] provider. Document Revised: 08/20/2021 Document Reviewed: 08/20/2021 TCM Bertha Patient Education 2022 [employer]. Follow Up Care 08/26/2022 10:02:45 With:Kahlil JERNIGAN, MARLENA Salmon, NELLY Address: When:Within 4 Week(s) Comments:w/ PSA [facility] 02-28-2023 Hospital Discharge instructions Follow Up Care 05/07/2022 15:08:01 With:Camryn AGUSTIN MD, SUR Address: [address] [place] [address]- When: only if needed General Surgery Javed Evaluation + Plan note No data available for this section General Surgery Javed Evaluation + Plan note Future Appointments Appointment Date:05/21/2022 02:40:00 PM Scheduled Provider:Camryn AGUSTIN MD Location:[facility] Appointment Type:GS Post Op 15 General Surgery [place] Evaluation + Plan note Future Appointments Appointment Date:09/24/2022 01:40:00 PM Scheduled Provider:Camryn AGUSTIN MD Location:[facility] Appointment Type:[facility] 15 Appointment Date:09/25/2022 08:45:00 AM Scheduled Provider:Shae Guillory MD Location:[facility] Appointment Type:URO Office Visit Diagnostic Tests Pending * PSA Total 09/04/22 * PSA Free & Total 09/04/22 [facility] evaluation + Plan note Future Appointments Appointment Date:01/08/2023 09:00:00 AM Scheduled Provider:Shae Guillory MD Location:[facility] Appointment Type:URO Office Visit Diagnostic Tests Pending * PSA Free & Total 10/30/22 [facility] evaluation + Plan note Future Appointments Appointment Date:04/23/2023 09:45:00 AM Scheduled Provider:Shae Guillory MD Location:[facility] Appointment Type:URO Office Visit Diagnostic Tests Pending * PSA Free & Total 12/05/22 [facility] evaluation noteNo assessment information available [facility] Work Phone: evaluation note* Diagnosis Spinal stenosis, lumbar region with [...] Preoperative examination, unspecified [facility] Pre-op exam- Primary Preoperative examination, unspecified Primary hypertension Unspecified essential hypertension SVT (supraventricular tachycardia) (HCC) Other specified cardiac dysrhythmias History of penicillin allergy Personal history of allergy to penicillin History of laminectomy Other postprocedural status Degenerative scoliosis in adult patient Pre-op testing Preoperative examination, unspecified [facility] Diagnosis Acute post-operative pain [facility] Diagnosis Acute post-operative pain [facility] Diagnosis Acute post[facility] Diagnosis S/P lumbar fusion- Primary Arthrodesis status [facility] Diagnosis S/P lumbar spinal fusion- Primary Arthrodesis status Pre-op testing Preoperative examination, unspecified S/P lumbar spinal fusion Arthrodesis status [facility] Diagnosis S/P lumbar fusion Arthrodesis status S/P lumbar spinal fusion Arthrodesis status [facility] Diagnosis S/P lumbar spinal fusion- Primary Arthrodesis status S/P lumbar spinal fusion Arthrodesis status [facility] Diagnosis Post-op pain- Primary Other acute postoperative pain [facility] Diagnosis Post-op pain Other acute postoperative pain [facility] Diagnosis Right leg weakness- Primary Other musculoskeletal symptoms referable to limbs S/P lumbar fusion Arthrodesis status [facility] Diagnosis Post-op pain Other acute [...] [facility] Diagnosis Acute post-operative pain SVT [...] this encounter [facility]* Diagnosis Acute post-operative pain SVT (supraventricular [...] adult [facility] Diagnosis Acute post-operative pain SVT (supraventricular [...] sciatica present [facility] Diagnosis Acute post-operative pain SVT (supraventricular tachycardia) ([facility]) Other specified cardiac dysrhythmias Acute post-operative pain [...] to limbs [facility] Diagnosis Acute post-operative pain SVT (supraventricular tachycardia) ([facility]) Other specified cardiac dysrhythmias Acute post-operative pain [...] of treatment, sequela [facility] Diagnosis Acute post-operative pain SVT [...] treatment, sequela [facility] Diagnosis Acute post-operative pain SVT [...] whether sciatica present [facility] Diagnosis Acute post-operative pain SVT [...] and fatigue [facility] Diagnosis Acute post-operative pain SVT [...] cervical region [facility] Diagnosis Acute post-operative pain SVT [...] cervical region [facility] Diagnosis Acute post-operative pain SVT [...] cervical region [facility] Diagnosis Acute post-operative pain SVT [...] cervical region [facility] Diagnosis Acute post-operative pain SVT [...] cervical region [facility] Diagnosis Acute post-operative pain SVT [...] cervical region [facility] Diagnosis Acute post-operative pain SVT [...] cervical region [facility] Diagnosis Acute post-operative pain Scoliosis [...] abnormal blood chemistry [facility] Diagnosis Acute post-operative pain Scoliosis [...] of sutures [facility] Diagnosis Acute post-operative pain Scoliosis [...] this encounter [facility] note* Diagnosis Acute post-operative pain Scoliosis of [...] this encounter [facility] note* Diagnosis Acute post-operative pain Scoliosis of [...] this encounter [facility] note* Diagnosis Acute post-operative pain Scoliosis of [...] Primary Arthrodesis status [facility] Diagnosis Idiopathic peripheral neuropathy- Primary Unspecified hereditary and idiopathic peripheral neuropathy Neurogenic ulcer, 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) PAD (peripheral artery disease) Unspecified peripheral vascular disease Absent pulse Other symptoms involving cardiovascular system Foot drop, bilateral Other acquired deformity of ankle and foot [facility] Foot drop, bilateral- Primary Other acquired deformity of ankle and foot Neurogenic ulcer, 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) PAD (peripheral artery disease) Unspecified peripheral vascular disease Absent pulse Other symptoms involving cardiovascular system Idiopathic peripheral neuropathy Unspecified hereditary and idiopathic peripheral neuropathy [facility] No data available for this section General Surgery [facility] Progress note No data available for this section General Surgery Ent[facility]ar[facility] Reason for referral (narrative)* Diagnostic Procedure Only (Routine) - Pending ReviewSpecialtyDiagnoses / ProceduresReferred By ContactReferred To ContactXR IMAGING Diagnoses Spinal stenosis, lumbar region with neurogenic claudication Procedures XR LUMBAR MOTION 4V AP/LAT/ FLEX/EXT RADEX SPINE LUMBOSACRAL MINIMUM 4 VIEWS Alfonso Loyd PA-C [address] [place] [id number] Xr [facility] [place] [address] Referral IDStatusReasonCamby DateExpiration DateVisits RequestedVisits [id number] Review Auto-Generated Referral [facility] for referral (narrative)* Diagnostic Procedure Only (Routine) - ClosedSpecialtyDiagnoses / ProceduresReferred By ContactReferred To ContactXR IMAGING Diagnoses History of lumbar laminectomy for spinal cord decompression Degenerative scoliosis in adult patient Chronic low back pain, unspecified back pain laterality, unspecified whether sciatica present Procedures XR SCOLIOSIS PA STAND/LAT 2V RADEX ENTIR THRC LMBR CRV SAC SPI W/SKULL 2/3 VW Katherine Keith MD [address] [place] [address] Xr Imaging [place] [address] Referral IDStatusReasonCamby DateExpiration DateVisits RequestedVisits [id number] Auto-Generated Referral [facility] for referral (narrative)* Diagnostic Procedure Only (Routine) - ClosedSpecialtyDiagnoses / ProceduresReferred By ContactReferred To ContactXR IMAGING Diagnoses Spinal stenosis, lumbar region with neurogenic claudication Procedures XR LUMBAR MOTION 4V AP/LAT/ FLEX/EXT RADEX SPINE LUMBOSACRAL MINIMUM 4 VIEWS Alfonso Loyd PA-C [address] [place] [id number] Xr Imaging [facility]95 Referral IDStatusReasonStart DateExpiration DateVisits RequestedVisits [id number] Auto-Generated Referral [facility] for referral (narrative)* Outpatient Procedure (Routine) - Pending ReviewSpecialtyDiagnoses / ProceduresReferred By ContactReferred To [facility] Diagnoses Pre-op exam Procedures ECG COMPLETE ECG ROUTINE ECG W/LEAST 12 LDS W/I&R Sanam Gill PA-C [address] [place] [address] [facility] [address] [place] [address] Referral IDStatTriHealth DateExpiration DateVisits RequestedVisits [id number] Review Auto-Generated Referral [facility] for referral (narrative)* Diagnostic Procedure Only (Routine) - ClosedSpecialtyDiagnoses / ProceduresReferred By ContactReferred To ContactXR IMAGING Diagnoses History of laminectomy Degenerative scoliosis in adult patient Procedures XR LUMBAR LIMITED 2V AP/LAT RADEX SPINE LUMBOSACRAL 2/3 VIEWS Alfonso Loyd PA-C [address] [place] [address] Xr Imaging [facility]95 Referral IDStaadvanced care hospital of southern new mexicoJesusCamby DateExpiration DateVisits RequestedVisits [id number] Auto-Generated Referral T [facility] for referral (narrative)* Outpatient Procedure (Routine) - Pending ReviewSpecialtyDiagnoses / ProceduresReferred By ContactReferred To [facility] Diagnoses Adverse effect of treatment, sequela Procedures EMG(NEURO/NI) NERVE CONDUCTION STUDIES 9-10 STUDIES Katherine Keith MD [address] [place] [address] Neu[facility] [address] [place] [phone] Referral IDStatusReasonStart DateExpiration DateVisits RequestedVisits [id number] Review Auto-Generated Referral * MRI/CT (Routine) - AuthorizedSpecialtyDiagnoses / ProceduresReferred By ContactReferred To ContactCT IMAGING Diagnoses Acute low back pain, unspecified back pain laterality, unspecified whether sciatica present Procedures CT LUMBAR SPINE WO IVCON CT LUMBAR SPINE W/O CONTRAST MATERIAL Katherine Keith MD [address] [place] [address] Ct Imaging [place] [address] Referral IDStatusReasonStart DateExpiration DateVisits RequestedVisits [id number] Auto-Generated Referral * MRI/CT (Routine) - AuthorizedSpecialtyDiagnoses / ProceduresReferred By ContactReferred To ContactMR IMAGING Diagnoses Adverse effect of treatment, sequela Procedures MRI LUMBAR SPINE WO IVCON MRI SPINAL CANAL LUMBAR W/O CONTRAST MATERIAL Katherine Keith MD [address] [place] [address] Mr Imaging [place] [address] Referral IDStatusReasonStart DateExpiration DateVisits RequestedVisits [id number] Auto-Generated Referral * MRI/CT (Routine) - AuthorizedSpecialtyDiagnoses / ProceduresReferred By ContactReferred To ContactMR IMAGING Diagnoses Adverse effect of treatment, sequela Procedures MRI THORACIC SPINE WO IVCON MRI SPINAL CANAL THORACIC W/O CONTRAST MATRL Katherine Keith MD [address] [place] [address] Mr Imaging [place] [address] Referral IDStatusReasonStart DateExpiration DateVisits RequestedVisits [id number] Auto-Generated Referral [facility] for referral (narrative)* Diagnostic Procedure Only (Routine) - ClosedSpecialtyDiagnoses / ProceduresReferred By ContactReferred To ContactMR IMAGING Diagnoses Spinal stenosis of cervical region Procedures MRI CERVICAL SPINE WO IVCON MRI SPINAL CANAL CERVICAL W/O CONTRAST MATRL Alfonso Loyd PA-C [address] [place] [address] Mr Imaging [place] [address] Referral IDStatusReasonStbigfork DateExpiration DateVisits RequestedVisits [id number] Auto-Generated Referral / [facility] for referral (narrative)No reason for referral information availableSycamore [facility] Work Phone: [facility] Narrative* MRI/CT (Routine) - Closed SpecialtyDiagnoses / ProceduresReferred By ContactReferred To ContactCT IMAGING Diagnoses Spinal stenosis of cervical region Procedures CT CERVICAL SPINE WO IVCON CT CERVICAL SPINE W/O CONTRAST MATERIAL Katherine Keith MD [address] [place] [address] Phone: tel: fax: CT IM[place]ING [place] [address] Referral IDStatusReasonStbigfork DateExpiration DateVisits RequestedVisits [id number] Auto-Generated Referral / [facility] Summary Purpose Family History No Family [...] CERVICAL W/O CONTRAST MATRL Alfonso Loyd PA-C [address] [place] [address] Mr Imaging [place] [address] Referral IDStatusReasonCamby DateExpiration DateVisits RequestedVisits [id number] Request Auto-Generated Referral [id number] / ProceduresReferred By ContactReferred To ContactCT IMAGING Diagnoses Acute low back pain, unspecified back pain laterality, unspecified whether sciatica present Procedures CT LUMBAR SPINE WO IVCON CT LUMBAR SPINE W/O CONTRAST MATERIAL Katherine Keith MD [address] [place] [address] Ct Imaging [place] [address] Referral IDStatusReasonStart DateExpiration DateVisits RequestedVisits [id number] Auto-Generated Referral [id number] / ProceduresReferred By ContactReferred To ContactMR IMAGING Diagnoses Adverse effect of treatment, sequela Procedures MRI LUMBAR SPINE WO IVCON MRI SPINAL CANAL LUMBAR W/O CONTRAST MATERIAL Katherine Keith MD [address] [place] [address] Mr Imaging [place] [address] Referral IDStatusGabrielaasonStbigfork DateExpiration DateVisits RequestedVisits [id number] Auto-Generated Referral [id number] / ProceduresReferred By ContactReferred To ContactREHAB AND SPORTS THERAP[facility] INS Diagnoses Right leg weakness S/P lumbar fusion Procedures CONSULT TO PHYSICAL THERAPY PHYSICAL THERAPY EVALUATION [facility] 45 MINS Alfonso Loyd PA-C [address] [place] [address] [facility] [place] [address] [place] [address] Referral IDStatusJesusStbigfork DateExpiration DateVisits RequestedVisits [id number] Review Auto-Generated Referral /[id number] / ProceduresReferred By ContactReferred To Contact Diagnoses History of laminectomy Degenerative scoliosis in adult patient Pre-op testing Procedures REFER TO [facility] - PRE ANESTHESIA CONSULTATION CLINIC OFFICE/OUTPATIENT [facility] 60 MINUTES Alfonso Loyd PA-C [address] [place] [address] Referral IDStatusGabrielaasonStbigfork DateExpiration DateVisits RequestedVisits [id number] PCP Requested Referral /[id number] / ProceduresReferred By ContactReferred To ContactXR IMAGING Diagnoses History of laminectomy Degenerative scoliosis in adult patient Procedures XR LUMBAR LIMITED 2V AP/LAT RADEX SPINE LUMBOSACRAL 2/3 VIEWS Alfonso Loyd PA-C [address] [place] [address] Xr Imaging [place] [address] Referral IDStatusReasonStart DateExpiration DateVisits RequestedVisits [id number] Review Auto-Generated Referral /[id number] / ProceduresReferred By ContactReferred To ContactNEUROLOGICAL INSTITUTE Diagnoses History of lumbar laminectomy for spinal cord decompression Degenerative scoliosis in adult patient Chronic low back pain, unspecified back pain laterality, unspecified whether sciatica present Procedures EMG(NEURO/NI) NERVE CONDUCTION STUDIES 9-10 STUDIES Katherine Keith MD [address] [place] [address] [address] [facility] [place] [address] Referral IDStatusReasonStart DateExpiration DateVisits RequestedVisits [id number] Auto-Generated Referral /[id number] / ProceduresReferred By ContactReferred To ContactCT IMAGING Diagnoses Chronic low back pain, unspecified back pain laterality, unspecified whether sciatica present Procedures CT LUMBAR SPINE WO IVCON CT LUMBAR SPINE W/O CONTRAST MATERIAL Katherine Keith MD [facility] [place] [address] Ct Imaging [place] [address] Referral IDStatusReasonStbigfork DateExpiration DateVisits RequestedVisits [id number] Auto-Generated Referral /[id number] / ProceduresReferred By ContactReferred To ContactXR IMAGING Diagnoses History of lumbar laminectomy for spinal cord decompression Degenerative scoliosis in adult patient Chronic low back pain, unspecified back pain laterality, unspecified whether sciatica present Procedures XR SCOLIOSIS PA STAND/LAT 2V RADEX ENTIR THRC LMBR CRV SAC SPI W/SKULL 2/3 VW Katherine Keith MD [address] [place] [address] Xr Imaging [place] [address] Referral IDStatusReasonStart DateExpiration DateVisits RequestedVisits [id number] Auto-Generated Referral [id number] / ProceduresReferred By ContactReferred To ContactCT IMAGING Diagnoses Chronic low back pain, unspecified back pain laterality, unspecified whether sciatica present Procedures CT LUMBAR SPINE WO IVCON CT LUMBAR SPINE W/O CONTRAST MATERIAL Katherine Keith MD [address] [place] [address] Ct Imaging [place] [address] Referral IDStatusReasonStart DateExpiration DateVisits RequestedVisits [id number] Auto-Generated Referral Additional Source Comments (unrecognized sect ion and content) No Status Records FoundNo Status Records FoundNo Status Records FoundNo Status Records FoundNo Status Records FoundNo Status Records FoundNo Status Records FoundNo Status Records FoundNo Status Records FoundNo Status Records FoundNo Status Records Found INFORMATION SOURCE (unrecogn ized section and content) DATE CREATED AUTHOR 05/16/2020 [facility] DATE CREATED AUTHOR AUTHOR'S ORGANIZ ATION 09/06/2020 [facility] DATE CREATED AUTHOR AUTHOR'S ORGANIZ ATION 05/18/2022 [facility] DATE CREATED AUTHOR AUTHOR'S ORGANIZ ATION 06/13/2022 [facility] DATE CREATED AUTHOR AUTHOR'S ORGANIZ ATION 08/18/2023 [facility] DATE CREATED AUTHOR AUTHOR'S ORGANIZ ATION 05/16/2024 [facility] DATE CREATED AUTHOR AUTHOR'S ORGANIZ ATION 07/17/2024 [facility] DATE CREATED AUTHOR AUTHOR'S ORGANIZ ATION 10/02/2024 [facility] DATE CREATED AUTHOR AUTHOR'S ORGANIZ ATION 12/28/2024 [facility] DATE CREATED AUTHOR AUTHOR'S ORGANIZ ATION 01/08/2025 [facility] DATE CREATED AUTHOR AUTHOR'S ORGANIZ ATION 01/16/2025 [facility] EPIC Patient Care team informatio n (unrecognized section and content) Team Status: Active Member Role Status Dates Ester Cain MD Primary Care Provider Active Team Status: Inactive Member Role Status Dates Ester Cain MD Primary Care Provider Active Shae M Lue , [facility] HospitalTe MemberRelationshipSpecialtyStart DateEnd Date Ester Cain MD [facility]05/05/06Te MemberRelationshipSpecialtyStart DateEnd Date Ester Cain MD PCP - General05/05/06Te MemberRelationshipSpecialtyStart DateEnd Date Ester Cain MD PCP [facility]05/05/06Te MemberRelationshipSpecialtyStart DateEnd Date Ester Cain MD PCP General05/05/06Te MemberRelationshipSpecialtyStart DateEnd Date Ester Cain MD PCP - General05/05/06Te MemberRelationshipSpecialtyStart DateEnd Date Ester Cain MD PCP General05/05/06Te MemberRelationshipSpecialtyStart DateEnd Date Ester Cain MD PCP - General05/05/06Team MemberRelationshipSpecialtyStart DateEnd Date Ester Cain MD PCP - General05/05/06Team MemberRelationshipSpecialtyStart DateEnd Date Ester Cain MD PCP - General05/05/06Te MemberRelationshipSpecialtyStart DateEnd Date Ester Cain MD [facility]05/05/06Te MemberRelationshipSpecialtyStart DateEnd Date Ester Cain MD [facility]05/05/06Te MemberRelationshipSpecialtyStart DateEnd Date Ester Cain MD [facility]05/05/06Te MemberRelationshipSpecialtyStart DateEnd Date Ester Cain MD [facility]05/05/06Te MemberRelationshipSpecialtyStart DateEnd Date Ester Cain MD [facility]05/05/06Te MemberRelationshipSpecialtyStart DateEnd Date Ester Cain MD [facility]05/05/06Te MemberRelationshipSpecialtyStart DateEnd Date Ester Cain MD PCP - [facility]05/05/06Te MemberRelationshipSpecialtyStart DateEnd Date Ester Cain MD PCP - [facility]05/05/06Te MemberRelationshipSpecialtyStart DateEnd Date Ester Cain MD PCP - [place] [address]Team MemberRelationshipSpecialtyStart DateEnd Date Ester Cain MD PCP [...] - General05/05/06 Katherine Keith Md, MD [facility]09/07/23 Team Status: Inactive Member Role Status Dates Ester Cain MD Primary Care Provider Active Start: November 26, 2023 End: November 26, 2023Micashley Agustin MD FACSAttending ProviderActiveStart: November 26, 2023 End: November 26, 2023Team MemberRelationshipSpecialtyStart DateEnd Date Ester Cain MD PCP - General05/05/06 Katherine eKith Md, MD [facility]09/07/23Team MemberRelationshipSpecialtyStart DateEnd Date [...] DateEnd Date Ester Cain MD [address] [place] [address] [facility] Team Status: Inactive Member Role Status Dates Ester Cain MD Primary Care Provider Active Start: September 27, 2024 End: September 27, 2024Eugene Rosaura Gray , DPMAttending ProviderActiveStart: September 27, 2024 End: September 27, 2024 Team Status: Inactive Member Role Status Dates Ester Cain MD Primary Care Provider Active Start: October 06, 2024 End: October 06, 2024Citlali Black [employer]-CAttending ProviderActiveStart: October 06, 2024 End: October 06, 2024Team MemberRelationshipSpecialtyStart DateEnd Date Ester Cain MD [address] [facility] [place] [address] PCP - [facility]09/08/24Team MemberRelationshipSpecialtyStart DateEnd Date Ester Cain MD [address] [facility] [place] [address] PCP - [facility]09/08/24Team MemberRelationshipSpecialtyStart DateEnd Date Ester aCin MD [address] [facility] [place] [address] PCP - [facility]09/08/24Team MemberRelationshipSpecialtyStart DateEnd Date Ester Cain MD [address] [facility] [place] [address] PCP - [facility]09/08/24 Goals (unrecognized section and content) Goals may be documented in a n alternate section Source Comments (unrecognize d section and content) In the event this informatio n is protected by the Federal Confidentiality of Alcohol and Drug Abuse Patient Records regulations: The Federal rules restrict any use of the information to criminally investigate or prosecute any alcohol or drug abuse patient.[facility] the event this information is protected by the Federal Confidentiality of Alcohol and Drug Abuse Patient Records regulations: The Federal rules restrict any use of the information to criminally investigate or prosecute any alcohol or drug abuse patient.[facility] the event this information is protected by the Federal Confidentiality of Alcohol and Drug Abuse Patient Records regulations: The Federal rules restrict any use of the information to criminally investigate or prosecute any alcohol or drug abuse patient.[facility] the event this information is protected by the Federal Confidentiality of Alcohol and Drug Abuse Patient Records regulations: The Federal rules restrict any use of the information to criminally investigate or prosecute any alcohol or drug abuse patient.[facility] the event this information is protected by the Federal Confidentiality of Alcohol and Drug Abuse Patient Records regulations: The Federal rules restrict any use of the information to criminally investigate or prosecute any alcohol or drug abuse patient.[facility] the event this information is protected by the Federal Confidentiality of Alcohol and Drug Abuse Patient Records regulations: The Federal rules restrict any use of the information to criminally investigate or prosecute any alcohol or drug abuse patient.[facility] the event this information is protected by the Federal Confidentiality of Alcohol and Drug Abuse Patient Records regulations: The Federal rules restrict any use of the information to criminally investigate or prosecute any alcohol or drug abuse patient.[facility] the event this information is protected by the Federal Confidentiality of Alcohol and Drug Abuse Patient Records regulations: The Federal rules restrict any use of the information to criminally investigate or prosecute any alcohol or drug abuse patient.[facility] the event this information is protected by the Federal Confidentiality of Alcohol and Drug Abuse Patient Records regulations: The Federal rules restrict any use of the information to criminally investigate or prosecute any alcohol or drug abuse patient.[facility] the event this information is protected by the Federal Confidentiality of Alcohol and Drug Abuse Patient Records regulations: The Federal rules restrict any use of the information to criminally investigate or prosecute any alcohol or drug abuse patient.[facility]In the event this information is protected by the Federal Confidentiality of Alcohol and Drug Abuse Patient Records regulations: The Federal rules restrict any use of the information to criminally investigate or prosecute any alcohol or drug abuse patient.[facility]In the event this information is protected by the Federal Confidentiality of Alcohol and Drug Abuse Patient Records regulations: The Federal rules restrict any use of the information to criminally investigate or prosecute any alcohol or drug abuse patient.[facility]In the event this information is protected by the Federal Confidentiality of Alcohol and Drug Abuse Patient Records regulations: The Federal rules restrict any use of the information to criminally investigate or prosecute any alcohol or drug abuse patient.[facility]In the event this information is protected by the Federal Confidentiality of Alcohol and Drug Abuse Patient Records regulations: The Federal rules restrict any use of the information to criminally investigate or prosecute any alcohol or drug abuse patient.[facility]In the event this information is protected by the Federal Confidentiality of Alcohol and Drug Abuse Patient Records regulations: The Federal rules restrict any use of the information to criminally investigate or prosecute any alcohol or drug abuse patient.[facility]In the event this information is protected by the Federal Confidentiality of Alcohol and Drug Abuse Patient Records regulations: The Federal rules restrict any use of the information to criminally investigate or prosecute any alcohol or drug abuse patient.[facility]In the event this information is protected by the Federal Confidentiality of Alcohol and Drug Abuse Patient Records regulations: The Federal rules restrict any use of the information to criminally investigate or prosecute any alcohol or drug abuse patient.[facility]In the event this information is protected by the Federal Confidentiality of Alcohol and Drug Abuse Patient Records regulations: The Federal rules restrict any use of the information to criminally investigate or prosecute any alcohol or drug abuse patient.[facility]In the event this information is protected by the Federal Confidentiality of Alcohol and Drug Abuse Patient Records regulations: The Federal rules restrict any use of the information to criminally investigate or prosecute any alcohol or drug abuse patient.[facility]In the event this information is protected by the Federal Confidentiality of Alcohol and Drug Abuse Patient Records regulations: The Federal rules restrict any use of the information to criminally investigate or prosecute any alcohol or drug abuse patient.[facility]In the event this information is protected by the Federal Confidentiality of Alcohol and Drug Abuse Patient Records regulations: The Federal rules restrict any use of the information to criminally investigate or prosecute any alcohol or drug abuse patient.[facility]In the event this information is protected by the Federal Confidentiality of Alcohol and Drug Abuse Patient Records regulations: The Federal rules restrict any use of the information to criminally investigate or prosecute any alcohol or drug abuse patient.[facility]In the event this information is protected by the Federal Confidentiality of Alcohol and Drug Abuse Patient Records regulations: The Federal rules restrict any use of the information to criminally investigate or prosecute any alcohol or drug abuse patient.[facility]In the event this information is protected by the Federal Confidentiality of Alcohol and Drug Abuse Patient Records regulations: The Federal rules restrict any use of the information to criminally investigate or prosecute any alcohol or drug abuse patient.[facility]In the event this information is protected by the Federal Confidentiality of Alcohol and Drug Abuse Patient Records regulations: The Federal rules restrict any use of the information to criminally investigate or prosecute any alcohol or drug abuse patient.[facility]In the event this information is protected by the Federal Confidentiality of Alcohol and Drug Abuse Patient Records regulations: The Federal rules restrict any use of the information to criminally investigate or prosecute any alcohol or drug abuse patient.[facility]In the event this information is protected by the Federal Confidentiality of Alcohol and Drug Abuse Patient Records regulations: The Federal rules restrict any use of the information to criminally investigate or prosecute any alcohol or drug abuse patient.[facility]In the event this information is protected by the Federal Confidentiality of Alcohol and Drug Abuse Patient Records regulations: The Federal rules restrict any use of the information to criminally investigate or prosecute any alcohol or drug abuse patient.[facility]In the event this information is protected by the Federal Confidentiality of Alcohol and Drug Abuse Patient Records regulations: The Federal rules restrict any use of the information to criminally investigate or prosecute any alcohol or drug abuse patient.[facility]In the event this information is protected by the Federal Confidentiality of Alcohol and Drug Abuse Patient Records regulations: The Federal rules restrict any use of the information to criminally investigate or prosecute any alcohol or drug abuse patient.[facility]In the event this information is protected by the Federal Confidentiality of Alcohol and Drug Abuse Patient Records regulations: The Federal rules restrict any use of the information to criminally investigate or prosecute any alcohol or drug abuse patient.[facility]In the event this information is protected by the Federal Confidentiality of Alcohol and Drug Abuse Patient Records regulations: The Federal rules restrict any use of the information to criminally investigate or prosecute any alcohol or drug abuse patient.[facility]In the event this information is protected by the Federal Confidentiality of Alcohol and Drug Abuse Patient Records regulations: The Federal rules restrict any use of the information to criminally investigate or prosecute any alcohol or drug abuse patient.[facility]In the event this information is protected by the Federal Confidentiality of Alcohol and Drug Abuse Patient Records regulations: The Federal rules restrict any use of the information to criminally investigate or prosecute any alcohol or drug abuse patient.[facility]In the event this information is protected by the Federal Confidentiality of Alcohol and Drug Abuse Patient Records regulations: The Federal rules restrict any use of the information to criminally investigate or prosecute any alcohol or drug abuse patient.[facility]In the event this information is protected by the Federal Confidentiality of Alcohol and Drug Abuse Patient Records regulations: The Federal rules restrict any use of the information to criminally investigate or prosecute any alcohol or drug abuse patient.[facility]In the event this information is protected by the Federal Confidentiality of Alcohol and Drug Abuse Patient Records regulations: The Federal rules restrict any use of the information to criminally investigate or prosecute any alcohol or drug abuse patient.[facility]In the event this information is protected by the Federal Confidentiality of Alcohol and Drug Abuse Patient Records regulations: The Federal rules restrict any use of the information to criminally investigate or prosecute any alcohol or drug abuse patient.[facility]In the event this information is protected by the Federal Confidentiality of Alcohol and Drug Abuse Patient Records regulations: The Federal rules restrict any use of the information to criminally investigate or prosecute any alcohol or drug abuse patient.[facility]In the event this information is protected by the Federal Confidentiality of Alcohol and Drug Abuse Patient Records regulations: The Federal rules restrict any use of the information to criminally investigate or prosecute any alcohol or drug abuse patient.[facility]In the event this information is protected by the Federal Confidentiality of Alcohol and Drug Abuse Patient Records regulations: The Federal rules restrict any use of the information to criminally investigate or prosecute any alcohol or drug abuse patient.[facility]In the event this information is protected by the Federal Confidentiality of Alcohol and Drug Abuse Patient Records regulations: The Federal rules restrict any use of the information to criminally investigate or prosecute any alcohol or drug abuse patient.[facility] HospitalIn the event this information is protected [...] prosecute any alcohol or drug abuse patient.[facility] HospitalIn the event this information is protected by the Federal Confidentiality of Alcohol and Drug Abuse Patient Records regulations: The Federal rules restrict any use of the information to criminally investigate or prosecute any alcohol or drug abuse patient.[facility]In the event this information is protected by the Federal Confidentiality of Alcohol and Drug Abuse Patient Records regulations: The Federal rules restrict any use of the information to criminally investigate or prosecute any alcohol or drug abuse patient.[facility] HospitalIn the event this information is protected by the Federal Confidentiality of Alcohol and Drug Abuse Patient Records regulations: The Federal rules restrict any use of the information to criminally investigate or prosecute any alcohol or drug abuse patient.[facility]In the event this information is protected by the Federal Confidentiality of Alcohol and Drug Abuse Patient Records regulations: The Federal rules restrict any use of the information to criminally investigate or prosecute any alcohol or drug abuse patient.[facility] HospitalIn the event this information is protected by the Federal Confidentiality of Alcohol and Drug Abuse Patient Records regulations: The Federal rules restrict any use of the information to criminally investigate or prosecute any alcohol or drug abuse patient.[facility]In the event this information is protected by the Federal Confidentiality of Alcohol and Drug Abuse Patient Records regulations: The Federal rules restrict any use of the information to criminally investigate or prosecute any alcohol or drug abuse patient.[facility]In the event this information is protected by the Federal Confidentiality of Alcohol and Drug Abuse Patient Records regulations: The Federal rules restrict any use of the information to criminally investigate or prosecute any alcohol or drug abuse patient.[facility] HospitalIn the event this information is protected by the Federal Confidentiality of Alcohol and Drug Abuse Patient Records regulations: The Federal rules restrict any use of the information to criminally investigate or prosecute any alcohol or drug abuse patient.[facility]In the event this information is protected by the Federal Confidentiality of Alcohol and Drug Abuse Patient Records regulations: The Federal rules restrict any use of the information to criminally investigate or prosecute any alcohol or drug abuse patient.[facility]In the event this information is protected by the Federal Confidentiality of Alcohol and Drug Abuse Patient Records regulations: The Federal rules restrict any use of the information to criminally investigate or prosecute any alcohol or drug abuse patient.[facility]In the event this information is protected by the Federal Confidentiality of Alcohol and Drug Abuse Patient Records regulations: The Federal rules restrict any use of the information to criminally investigate or prosecute any alcohol or drug abuse patient.[facility]In the event this information is protected by the Federal Confidentiality of Alcohol and Drug Abuse Patient Records regulations: The Federal rules restrict any use of the information to criminally investigate or prosecute any alcohol or drug abuse patient.[facility]In the event this information is protected by the Federal Confidentiality of Alcohol and Drug Abuse Patient Records regulations: The Federal rules restrict any use of the information to criminally investigate or prosecute any alcohol or drug abuse patient.[facility]In the event this information is protected by the Federal Confidentiality of Alcohol and Drug Abuse Patient Records regulations: The Federal rules restrict any use of the information to criminally investigate or prosecute any alcohol or drug abuse patient.[facility]In the event this information is protected by the Federal Confidentiality of Alcohol and Drug Abuse Patient Records regulations: The Federal rules restrict any use of the information to criminally investigate or prosecute any alcohol or drug abuse patient.[facility] HospitalIn the event this information is protected by the Federal Confidentiality of Alcohol and Drug Abuse Patient Records regulations: The Federal rules restrict any use of the information to criminally investigate or prosecute any alcohol or drug abuse patient.[facility]In the event this information is protected by the Federal Confidentiality of Alcohol and Drug Abuse Patient Records regulations: The Federal rules restrict any use of the information to criminally investigate or prosecute any alcohol or drug abuse patient.[facility]In the event this information is protected by the Federal Confidentiality of Alcohol and Drug Abuse Patient Records regulations: The Federal rules restrict any use of the information to criminally investigate or prosecute any alcohol or drug abuse patient.[facility]In the event this information is protected by the Federal Confidentiality of Alcohol and Drug Abuse Patient Records regulations: The Federal rules restrict any use of the information to criminally investigate or prosecute any alcohol or drug abuse patient.[facility]In the event this information is protected by the Federal Confidentiality of Alcohol and Drug Abuse Patient Records regulations: The Federal rules restrict any use of the information to criminally investigate or prosecute any alcohol or drug abuse patient.[facility] HospitalIn the event this information is protected by the Federal Confidentiality of Alcohol and Drug Abuse Patient Records regulations: The Federal rules restrict any use of the information to criminally investigate or prosecute any alcohol or drug abuse patient.[facility]In the event this information is protected by the Federal Confidentiality of Alcohol and Drug Abuse Patient Records regulations: The Federal rules restrict any use of the information to criminally investigate or prosecute any alcohol or drug abuse patient.[facility]In the event this information is protected by the Federal Confidentiality of Alcohol and Drug Abuse Patient Records regulations: The Federal rules restrict any use of the information to criminally investigate or prosecute any alcohol or drug abuse patient.[facility]In the event this information is protected by the Federal Confidentiality of Alcohol and Drug Abuse Patient Records regulations: The Federal rules restrict any use of the information to criminally investigate or prosecute any alcohol or drug abuse patient.[facility]In the event this information is protected by the Federal Confidentiality of Alcohol and Drug Abuse Patient Records regulations: The Federal rules restrict any use of the information to criminally investigate or prosecute any alcohol or drug abuse patient.[facility]In the event this information is protected by the Federal Confidentiality of Alcohol and Drug Abuse Patient Records regulations: The Federal rules restrict any use of the information to criminally investigate or prosecute any alcohol or drug abuse patient.[facility]In the event this information is protected by the Federal Confidentiality of Alcohol and Drug Abuse Patient Records regulations: The Federal rules restrict any use of the information to criminally investigate or prosecute any alcohol or drug abuse patient.[facility]In the event this information is protected by the Federal Confidentiality of Alcohol and Drug Abuse Patient Records regulations: The Federal rules restrict any use of the information to criminally investigate or prosecute any alcohol or drug abuse patient.[facility]In the event this information is protected by the Federal Confidentiality of Alcohol and Drug Abuse Patient Records regulations: The Federal rules restrict any use of the information to criminally investigate or prosecute any alcohol or drug abuse patient.[facility]In the event this information is protected by the Federal Confidentiality of Alcohol and Drug Abuse Patient Records regulations: The Federal rules restrict any use of the information to criminally investigate or prosecute any alcohol or drug abuse patient.[facility]In the event this information is protected by the Federal Confidentiality of Alcohol and Drug Abuse Patient Records regulations: The Federal rules restrict any use of the information to criminally investigate or prosecute any alcohol or drug abuse patient.[facility]In the event this information is protected by the Federal Confidentiality of Alcohol and Drug Abuse Patient Records regulations: The Federal rules restrict any use of the information to criminally investigate or prosecute any alcohol or drug abuse patient.[facility]In the event this information is protected by the Federal Confidentiality of Alcohol and Drug Abuse Patient Records regulations: The Federal rules restrict any use of the information to criminally investigate or prosecute any alcohol or drug abuse patient.[facility]In the event this information is protected by the Federal Confidentiality of Alcohol and Drug Abuse Patient Records regulations: The Federal rules restrict any use of the information to criminally investigate or prosecute any alcohol or drug abuse patient.[facility]In the event this information is protected by the Federal Confidentiality of Alcohol and Drug Abuse Patient Records regulations: The Federal rules restrict any use of the information to criminally investigate or prosecute any alcohol or drug abuse patient.[facility]In the event this information is protected by the Federal Confidentiality of Alcohol and Drug Abuse Patient Records regulations: The Federal rules restrict any use of the information to criminally investigate or prosecute any alcohol or drug abuse patient.[facility]In the event this information is protected by the Federal Confidentiality of Alcohol and Drug Abuse Patient Records regulations: The Federal rules restrict any use of the information to criminally investigate or prosecute any alcohol or drug abuse patient.[facility]In the event this information is protected by the Federal Confidentiality of Alcohol and Drug Abuse Patient Records regulations: The Federal rules restrict any use of the information to criminally investigate or prosecute any alcohol or drug abuse patient.[facility]In the event this information is protected by the Federal Confidentiality of Alcohol and Drug Abuse Patient Records regulations: The Federal rules restrict any use of the information to criminally investigate or prosecute any alcohol or drug abuse patient.[facility]In the event this information is protected by the Federal Confidentiality of Alcohol and Drug Abuse Patient Records regulations: The Federal rules restrict any use of the information to criminally investigate or prosecute any alcohol or drug abuse patient.[facility]In the event this information is protected by the Federal Confidentiality of Alcohol and Drug Abuse Patient Records regulations: The Federal rules restrict any use of the information to criminally investigate or prosecute any alcohol or drug abuse patient.[facility]In the event this information is protected by the Federal Confidentiality of Alcohol and Drug Abuse Patient Records regulations: The Federal rules restrict any use of the information to criminally investigate or prosecute any alcohol or drug abuse patient.[facility]In the event this information is protected by the Federal Confidentiality of Alcohol and Drug Abuse Patient Records regulations: The Federal rules restrict any use of the information to criminally investigate or prosecute any alcohol or drug abuse patient.[facility]In the event this information is protected by the Federal Confidentiality of Alcohol and Drug Abuse Patient Records regulations: The Federal rules restrict any use of the information to criminally investigate or prosecute any alcohol or drug abuse patient.[facility]In the event this information is protected by the Federal Confidentiality of Alcohol and Drug Abuse Patient Records regulations: The Federal rules restrict any use of the information to criminally investigate or prosecute any alcohol or drug abuse patient.[facility]In the event this information is protected by the Federal Confidentiality of Alcohol and Drug Abuse Patient Records regulations: The Federal rules restrict any use of the information to criminally investigate or prosecute any alcohol or drug abuse patient.[facility] Reason for Visit (unrecogniz ed section and content) ReasonCommentsRadio Gen [id number] / ProceduresReferred By Contact Referred To ContactXR IMAGING Diagnoses History of lumbar laminectomy for spinal cord decompression Degenerative scoliosis in adult patient Chronic low back pain, unspecified back pain laterality, unspecified whether sciatica present Procedures XR SCOLIOSIS PA STAND/LAT 2V RADEX ENTIR THRC LMBR CRV SAC SPI W/SKULL 2/3 VW Katherine Ketih MD [address] [place] [address] Xr [facility] [place] [address] Referral IDStatusReasonStart DateExpiration DateVisits RequestedVisits [id number] Auto-Generated Referral /[id number] Main [id number] / Procedures Referred By ContactReferred To ContactXR IMAGING Diagnoses Spinal stenosis, lumbar region with neurogenic claudication Procedures XR LUMBAR MOTION 4V AP/LAT/ FLEX/EXT RADEX SPINE LUMBOSACRAL MINIMUM 4 VIEWS Alfonso Loyd PA-C [address] [place] [address] Xr Imaging [place] [address] Referral IDStatusReasonStart DateExpiration DateVisits RequestedVisits [id number] Auto-Generated Referral /[id number] / ProceduresReferred By ContactReferred To ContactCT IMAGING Diagnoses Chronic low back pain, unspecified back pain laterality, unspecified whether sciatica present Procedures CT LUMBAR SPINE WO IVCON CT LUMBAR SPINE W/O CONTRAST MATERIAL Katherine Keith MD [address] [place] [address] Ct Imaging [place] [address] Referral IDStatusReasonStart DateExpiration DateVisits RequestedVisits [id number] Auto-Generated Referral /[id number] PatientReasonCommentsSchedule Surgery ReasonCommentsFormsReasonCommentsPatient UpdateReasonCommentsBlood Management ReasonCommentsFollow UpReasonCommentsEstablished PatientReasonCommentsMedication ProblemReasonOnset DateCommentsRefill Ftxsrrs71/25/2024ReasonOnset DateComments Refill Uhpjnvo93/28/2024ReasonOnset DateCommentsRefill Uwsdhbt65/11/2024Reason CommentsCARE CONTINUUM ADVISOR ASSESSMENTReasonCommentsResearchReasonOnset Date CommentsRefill Caafcvv09/07/2024ReasonCommentsmedicationReasonComments Established PatientReasonOnset DateCommentsRefill Gqrcyby97/21/2024ReasonOnset DateCommentsRefill Qvalczf23/28/2024ReasonCommentsInsurance Authorization SpecialtyDiagnoses / ProceduresReferred By ContactReferred To ContactXR IMAGING Diagnoses History of laminectomy Degenerative scoliosis in adult patient Procedures XR LUMBAR LIMITED 2V AP/LAT RADEX SPINE LUMBOSACRAL 2/3 VIEWS Alfonso Loyd PA-C [address] [place] [address] Xr Imaging [place] [address] Referral IDStatusReasonStart DateExpiration DateVisits RequestedVisits [id number] Auto-Generated Referral /[id number] OpReasonCommentsCare Coordinator - Other ReasonOnset DateCommentsRefill Balvoqm00/14/2024ReasonCommentsEstablished PatientFollow UpSpecialtyDiagnoses / ProceduresReferred By ContactReferred To ContactMR IMAGING Diagnoses Adverse effect of treatment, sequela Procedures MRI LUMBAR SPINE WO IVCON MRI SPINAL CANAL LUMBAR W/O CONTRAST MATERIAL Katherine Keith MD [address] [place] [address] Mr Imaging [place] [address] Referral IDStatusReasonCamby DateExpiration DateVisits RequestedVisits [id number] Auto-Generated Referral [id number] / ProceduresReferred By ContactReferred To ContactMR IMAGING Diagnoses Adverse effect of treatment, sequela Procedures MRI THORACIC SPINE WO IVCON MRI SPINAL CANAL THORACIC W/O CONTRAST MATRL Katherine Keith MD [address] [place] [address] Mr Imaging [place] [address] Referral IDStatusReasonCamby DateExpiration DateVisits RequestedVisits [id number] Auto-Generated Referral [id number] / ProceduresReferred By ContactReferred To ContactCT IMAGING Diagnoses Acute low back pain, unspecified back pain laterality, unspecified whether sciatica present Procedures CT LUMBAR SPINE WO IVCON CT LUMBAR SPINE W/O CONTRAST MATERIAL Katherine Keith MD [address] [place] [address] Ct Imaging [place] [address] Referral IDStatTriHealth DateExpiration DateVisits RequestedVisits [id number] Auto-Generated Referral 1ReasonOnset YxugWixwrennGYV43/06/2024SpecialtyDiagnoses / ProceduresReferred By ContactReferred To ContactNEUROLOGICAL INSTITUTE Diagnoses Adverse effect of treatment, sequela Procedures EMG(NEURO/NI) NERVE CONDUCTION STUDIES 9-10 STUDIES Katherine Keith MD [address] [place] [address] [address] Sha[address] [place] [address] Referral IDStatGabrielaJohn Paul Jones Hospital DateExpiration DateVisits RequestedVisits [id number] Auto-Generated Referral [id number] MRISpecialtyDiagnoses / Procedures Referred By ContactReferred To ContactMR IMAGING Diagnoses Spinal stenosis of cervical region Procedures MRI CERVICAL SPINE WO IVCON MRI SPINAL CANAL CERVICAL W/O CONTRAST Alfonso Campos PA-C [address] [place] [address] Mr Imaging [facility]95 Referral IDStatusReasonStart DateExpiration DateVisits RequestedVisits [id number] Auto-Generated Referral [id number] Of CareReasonCommentsPost Op ReasonOnset DateCommentsRefill Akxtnnx1506/21/2024ReasonOnset DateCommentsRefill Zyejmdm8606/28/2024 FOR RECORDS PERTAINING TO PATIENTS WHO ARE [...] BE BASED ON THE PRIMARY CLINICAL RECORDS. [email or web address] provides no warranty or guarantee of the accuracy or completeness of information in this document.
== END 2025-02-09 13:19 | disposition home or self-care (01) ==
LOC: MRI 13:21
PROVIDERS: PCP Family Medicine; Visit Provider Family Medicine
DX: M54.16 Radiculopathy, lumbar region (principal); M43.26 Fusion of spine, lumbar region; M51.369 Other intervertebral disc degeneration, lumbar region without mention of lumbar back pain or lower extremity pain
CPT/HCPCS: 72148

== ENCOUNTER 2025-02-28 12:39 | Outpatient (OUT) | payer OTHER, SELFPAY ==
--- OUTSIDE RECORDS SUMMARY | 2025-02-15 06:00 | XMS_ITS ---
Author Organization [facility] in [place] Address [address] [place] [address] Care Team Providers Care Tile Inspector Name Role Phone Micheal Craven Primary Care Provider Allergies Allergen (clinical drug ingredient) Drug/Non Drug Allergy documented on EMR Reaction Allergy Type Onset Date Status methocarbamol Robaxin Unknown Drug Allergy ActivePenicillinhivesDrug AllergyActive REASON FOR VISIT go over MRI results, cardiology started pt on HCTZ- however pt has stopped it Medications Medication SIG (Take, Route, Frequency, Duration) Notes Start Date End Date Status Valium 10 MG 1 tablet as needed Orally once about 1 hour before procedure; Duration: 1 days F41.9 5ActiveTriamcinolone Acetonide 0.1 %1 application Externally bid 5ActivetiZANidine HCl 4 MGTAKE 2 TABLETS BY MOUTH ONCE DAILY AT BEDTIME; Duration: 90ActiveCoreg 25 MG1 tablet with food Orally Twice a day; Duration: 30 days5ActiveMagnesium 400 MG1 tablet Orally once daily ActiveIrbesartan 150 MG1 tablet Orally Once a day; Duration: 30 day(s)12/06/2024 ActiveTerbinafine HCl 250 MG1 tablet Orally Once a day; Duration: 30 days 5ActiveTadalafil 5 MGTAKE 1 TABLET BY MOUTH DAILY; Duration: 30Active oxyCODONE HCl 5 MG1 tablets Orally every 4 hours; Duration: 14 days02/11/2025 ActiveFerrous Sulfate 325 (65 Fe) MG1 tablet Orally bid; Duration: 30 days 04/29/2025Active Social History Tobacco Use: Social History Observation Description Date Details (start date - stop date) Never Smoker NA - NA Tobacco Use/Smoking Question Answer Notes Patient is a nonsmoker Vital Signs Weight 210.2 lbs 02/15/2025 Height 72 in 02/15/2025 Blood pressure systolic 132 mm Hg 02/16/20 25 Blood pressure diastolic 64 mm Hg 025 BMI 28.51 kg/m2 02/15/2025 Encounters Encounter Location Date Provider Diagnosis [facility] [address] [place] [address] 02/15/2025 Micheal Craven Radiculopathy, cervical region M54.12 and Radiculopathy, lumbar region M54.16 Assessments Encounter Date Diagnosis (ICD Code) Assessment Notes Treatment Notes Treatment Clinical Notes Section Notes 02/15/2025 Radiculopathy, cervical region ( ICD-10 - M54.12) 02/15/2025Radiculopathy, lumbar region (ICD-10 - M54.16)02/15/2025Other Recommended to rest and use a heating pad on the area. Take NSAIDs for pain as needed Plan Of Treatment Medication Medication Name Sig Start Date Stop Date Notes Triamcinolone Acetonide 0.1 % 1 application Externally bid 12/06/2024 Coreg 25 MG1 tablet with food Orally Twice a day; Duration: 30 days10/11/2024 Treatment Notes Assessment Notes Other Recommended to rest and use a heating pad on the area. Take NSAIDs for pain as needed Pending Test Test Name Order Date CT cervical spine wo con 02/15/2025 Next Appt Details Provider Name:Micheal Craven, 11:15:00 AM, [address] [place], [address], Progress Notes * Raza RODRIGUEZ LDOB: [birth year] (69 yo M)Acc No.[id number]:02/15/2025 Progress Note Patient: Raza HUITRON :?Devon Craven ([facility]), MDDOB:1955???Age: 69 Y???Sex:MaleDate:02/15/2025Phone:[phone]:[address] [facility] [place], [id number] In:10:55 AM [place] Out:11:47 AM EST Subjective: * Chief Complaints: * g o over MRI resultscardiology started pt on HCTZ- however pt has stopped it * HPI: ???General:? low back pain - need reprral? for eval for possible further surgery neck pain - and feel lioke somwthin moved - need ct scan. ???Back Pain:? The patient complains of -. [...] List M54.16 Radiculopathy, lumba r region Modified On:06/06/2023/U Status:ldprkreigD68.00Pure hypercholesterolemia, unspecified Modified On:07/01/2022/U Status:lekwncnexW63.12Radiculopathy, cervical region Modified On:07/01/2022/U Status:pxtdglcmzT96.40Impingement syndrome of unspecified shoulder Modified On:07/01/2022/U Status:wcjydlgruY04.2Hypoglycemia, unspecified Modified On:07/01/2022/U Status:mapxevtngJ82.90Asymptomatic varicose veins of unspecified lower extremity Modified On:07/01/2022 Status:rmdqiywbbI74.1Supraventricular tachycardia Modified On:07/01/2022 Status:azwuduhsxV02.3Ventricular premature depolarization Modified On:07/01/2022 Status:nqhrbdqpyI12.1Sacroiliitis, not elsewhere classified Modified On:07/01/2022 Status:cuxtlxbooF97Fujbltbxk (primary) hypertension Modified On:01/01/2023 Status:owfotecniD14.90Diverticulosis of intestine, part unspecified, without perforation or abscess without bleeding Modified On:07/01/2022 Status:hbeywjplzG77.20Elevated prostate specific antigen [PSA] Modified On:08/21/2022 Status:umretlpngQ04.5Cecal polyp Modified On:11/28/2023 Status:trtzcaiemF99.0BPH (benign prostatic hyperplasia) Modified On:12/22/2023 Status:kxlunoyvwU02.409AAnkle sprain Modified On:05/03/2024 Status:effxnjhbvT73.12Cervical radiculopathy Modified On:05/13/2024 Status:nffkvxiwgT14.90Cellulitis Modified On:08/16/2024 Status:swpjrrrvjL90.9Acute anemia Modified On:09/27/2024 Status:waruvtqaoS07.9Edema Modified On:10/07/2024 Status:miwshcwnjX91.8Varicose veins Modified On:10/07/2024 Status:qhvbejorlJ58.16Lumbar radiculopathy Modified On:10/11/2024 Status:jlxsqxzhcL66.30Sigmoid diverticulosis Modified On:01/10/2025 Status:confirmed * Medical History: [...] Use:?Tobacco Use/Smoking?Patient is a?nonsmoker * Medications: T akingCoreg(Carvedilol) 12.5 MG Tablet 1 tablet with food Orally Twice a day Ferrous Sulfate 325 (65 Fe) MG Tablet 1 tablet Orally bid Irbesartan 150 MG Tablet 1 tablet Orally Once a day Magnesium 400 MG Tablet 1 tablet Orally once daily oxyCODONE HCl 5 MG Tablet 1 tablets Orally every 4 hours Tadalafil 5 MG Tablet TAKE 1 TABLET BY MOUTH DAILY Terbinafine HCl 250 MG Tablet 1 tablet Orally Once a day tiZANidine HCl 4 MG Tablet TAKE 2 TABLETS BY MOUTH ONCE DAILY AT BEDTIME Triamcinolone Acetonide 0.1 % Cream 1 application Externally bid Valium(diazePAM) 10 MG Tablet 1 tablet as needed Orally once about 1 hour before procedure F41.9Taking Coreg(Carvedilol) 12.5 MG Tablet 1 tablet with food Orally Twice a day Taking Ferrous Sulfate 325 (65 Fe) MG Tablet 1 tablet Orally bid Taking Irbesartan 150 MG Tablet 1 tablet Orally Once a day Taking Magnesium 400 MG Tablet 1 tablet Orally once daily Taking oxyCODONE HCl 5 MG Tablet 1 tablets Orally every 4 hours Taking Tadalafil 5 MG Tablet TAKE 1 TABLET BY MOUTH DAILY Taking Terbinafine HCl 250 MG Tablet 1 tablet Orally Once a day Taking tiZANidine HCl 4 MG Tablet TAKE 2 TABLETS BY MOUTH ONCE DAILY AT BEDTIME Taking Triamcinolone Acetonide 0.1 % Cream 1 application Externally bid Taking Valium(diazePAM) 10 MG Tablet 1 tablet as needed Orally once about 1 hour before procedure F41.9DiscontinuedpredniSONE 10 MG Tablet 5 tabs per day for 3 days, 4 tabs per day for 3 ays, 3 tabs perday for 3 days, 2 tabs per day for 3 days, 1 tab a day for 3 days, 1/2 tab a day for 4 days Orally Once a day Medication List reviewed and reconciled with the patientDiscontinued predniSONE 10 MG Tablet 5 tabs per day for 3 days, 4 tabs per day for 3 ays, 3 tabs perday for 3 days, 2 tabs per day for 3 days, 1 tab a day for 3 days, 1/2 tab a day for 4 days Orally Once a day Medication List reviewed and reconciled with the patient * Allergies: P enicillin: hives - AllergyRobaxin: Side Effectsno[Allergies Verified] Objective: * Vitals: W t:210.2lbs, Ht: 72 in, BP:132/64mm Hg, BMI:28.51Index, Ht-cm: 182.88 cm, Wt-k.35 kg. * Examination: ???General Examination: ?GENERAL APPEARANCE:?in no acute distress, well developed, well nourished.?LUNGS:? clear to auscultation bilaterally.?CARDIO:? S1, S2 normal, no murmurs, rubs, gallops.?MUSCULOSKELETAL:? ____.?EXTREMITIES:? no clubbing, cyanosis, or edema.?NEUROLOGIC:? alert, oriented to time, place, & person. ??? Assessment: * Assessment: 1.?Radiculopathy, cervical region - M54.12 (Primary)???2.?Radiculopathy, lumbar region - M54.16??? Plan: * Treatment: Refill Triamcinolone Acetonide Cream, 0.1 %, 1 application, Externally, bid, 60 grams, Refills 11; Refill Coreg Tablet, 25 MG, 1 tablet with food, Orally, Twice a day, 30 days, 60 Tablet, Refills 11.?Imaging: CT cervical spine wo con2.?Others? Notes: Recommended to rest and use a heating pad on the area. Take NSAIDs for pain as needed? * Procedure Codes: * Preventive Medicine: ??Screenings/Counseling:?BMI ACTION PLAN?Above Normal BMI Follow-up?Dietary management education, guidance, and counseling * * Sign off status: CompletedVisit Status:?CHK (Check Out) true * Provider: Mary Craven ([facility])MD Date: 04/18/2024 Generated for Printing/Faxing/eTransmitting on:?02/28/2025 12:41 PM EST History and Physical Notes * HPI (History of Present Illness) CategorySub-CategoryDetailNotesCategory NotesGeneral low back pain - need reprral for eval for possible further surgery neck pain - and feel lioke somwthin moved - need ct scan Examination CategorySub-CategoryDetailNotesCategory NotesGeneral ExaminationGENERAL APPEARANCE:in no acute distress, well developed, well nourishedCARDIO:S1, S2 normal, no murmurs, rubs, gallopsLUNGS:clear to auscultation bilaterally NEUROLOGIC:alert, oriented to time, place, & personEXTREMITIES:no clubbing, cyanosis, or edemaMUSCULOSKELETAL:____
--- OUTSIDE RECORDS SUMMARY | 2025-02-15 06:38 | XMS_ITS ---
Author Organization [facility] in [place] Address [address] [place] [address] Care Team Providers Care Railroad Emergency Services Manager Name Role Phone Micheal Craven Primary Care Provider Reason For Referral Diagnosis 1 Lumbar radiculopathy (M54.16) Referral Organization [facility] ([place], [place]) Referring Provider First Name Micheal Referring Provider Last Name Merissa Referring Provider [facility] icine Referred Provider Specialty Neurological Surgery Referral Priority Routine REASON FOR VISIT referral Encounters Encounter Location Date Provider Diagnosis [facility] [address] [place] [address] 02/15/2025 Micheal Craven Lumbar radiculopathy M54.16 Assessments Encounter Date Diagnosis (ICD Code) Assessment Notes Treatment Notes Treatment Clinical Notes Section Notes 02/15/2025 Lumbar radiculopathy (ICD-10 - M 54.16) Plan Of Treatment Referrals Referral Date Details 02/15/2025 02/15/2025 Next Appt Details Provider Name:Micheal Craven, 11:15:00 AM, [address] [place], [address], Progress Notes * Raza RODRIGUEZ LDOB: [birth year] (69 yo M)Acc No.[id number]:02/15/2025 Patient:?Raza RODRIGUEZ :1955???Age:69 Y???Sex:MalePhone:[phone] Address:[address] [place] [address], [address] Subjective: * Chief Complaints: * R eferral * Medical History: * Surgical History: * Hospitalization/Major Diagno stic Procedure: * Medications: Objective: * Vitals: * Physical Examination: ??? Assessment: * Assessment: 1.?Lumbar radiculopathy - M54.16 (Primary)??? Plan: * Treatment: ? Referral To:Neurological Surgery ?Reason: * Procedure Codes: * true * Date:?Generated for Printing/Faxing/eTransmitting on:?02/28/2025 12:42 PM EST Consultation Request Notes Referral Date Referring Provider Referred Provider Not es 02/15/2025 Micheal Craven ,
--- NOTE | 2025-02-28 12:42 | CT_ITS ---
The [address] [address] Patient Name: BRADEN PAYNE MRN: [id number] date: 1955 Sex: M Assigned Patient Location: CT Current Patient Location: CT Accession/Order Number: [id number] Exam Date: 02/28/2025 12:46 Report Date: 02/28/2025 13:22 At the request of: ESTER CAIN MD Procedure: CT cervical spine wo con CT CERVICAL SPINE WITHOUT CONTRAST WITH 3D RECONSTRUCTIONS: CLINICAL HISTORY: Constant neck pain and grinding. History of fall 1 - 2 months ago. Previous laminoplasty. M54.12 COMPARISON: Plain films 06/29/2024 TECHNIQUE: Spiral axial unenhanced images were obtained through the cervical spine. Sagittal, coronal and 3D volume-rendered reconstructions were also reviewed. This CT exam was performed using one or more following dose reduction techniques: Automated exposure control, adjustment of the mA and/or kV according to patient size, or use of iterative reconstruction technique. FINDINGS: There is prior laminoplasty with plate and screws on the left from C4 through C6 the hardware, as visualized appears intact and in appropriate position. There is reversal of the normal cervical lordosis. No significant displacement is seen. No acute fractures are identified. There is disc space narrowing from C3 - 4 down. There is endplate spurring at those levels as well some ossification at the posterior longitudinal ligament. Facet hypertrophy is also present. At C2-3, there is mild bony foraminal encroachment on the right. At C3-4, there is mild thecal sac effacement, slightly asymmetric in the right parasagittal region. There is also moderate bilateral foraminal encroachment, right worse than left. At C4-5, there is mild bony foraminal encroachment on the right and mild to moderate on the left. At C5-6, there is moderate thecal sac effacement which is asymmetric in the right parasagittal region. There is also at least moderate narrowing of the neural foramen on both sides though greater on the right. At C5-6, there is moderate central stenosis and mild bilateral foraminal impingement. The atlantoaxial relationship is maintained. No prevertebral soft tissue swelling is seen. There are tiny cervical lymph nodes. The upper imaged lungs show no contributory findings. CT/CT cervical spine wo con IMPRESSION: REVERSAL OF NORMAL CERVICAL LORDOSIS. POSTOPERATIVE CHANGES OF LEFT LAMINOPLASTY. DEGENERATIVE CHANGES AND ASSOCIATED STENOSIS, DESCRIBED. Impression dictated by: Charlene Souza M.D. 02/28/2025 1:22 PM Dictation Location: [facility] Electronically authenticated by: [id number] Y Date: 02/28/2025 13:22
--- OUTSIDE RECORDS SUMMARY | 2025-02-28 12:42 | XMS_ITS | Clinical Summary ---
Author Organization [facility] Address [address] [place] [address] Care Team Providers Care Bookstore Clerk Name Role Phone Devon Craven MD Primary Care Provider [phone] Allergies Active AllergyReactionsCriticalityNoted KysdDbazamwiBjlyeidlxjbXbdqi35/11/2025 Wvxogmollpjkz25/11/2025 Medications MedicationSigDispense QuantityRefillsLast FilledStart DateEnd DateStatus Magnesium [...] Problems No known active problems Encounters DateTypeDepartmentCare AttoLjnhjvcvycc26/07/2025 11:15 AM ESTOffice Visit [facility] [address] [place] [address] Mahamed Jeter, DPM Pain of toe of right foot; Pain in toe of left foot; Pain of left foot; Pain around toenail, left foot; Pain around toenail, right foot01/14/2025amboo flowsheet [facility] [place] [facility] [address] [place] [phone] Mahamed Jeter DPM 01/14/20259122Wmrrmo45/31/2922Oglfwb69/15/2025bstract [facility] [place] [facility] [address] [place] [phone] Mahamed Jeter DPM from Last 3 Months Family History Medical HistoryRelationNameCommentsMelanomaBrotherHeart diseaseFatherMelanoma FathercvaMotherRelationNameStatusCommentsBrotherFatherMother Social History Tobacco UseTypesPacks/DayYears UsedDateSmoking Tobacco: NeverSmokeless Tobacco: Never Tobacco Cessation:Counseling Given: Not Answered Alcohol UseStandard Drinks/WeekCommentsNever0 (1 standard drink = 0.6 oz pure alcohol)Sex and Gender InformationValueDate RecordedSex Assigned at BirthNot on fileLegal YfgCqnc0505/22/2022 7:12 PM EDTGender IdentityNot on fileSexual OrientationNot on file Last Filed Vital Signs Vital SignReadingTime TakenCommentsBlood Fqqvgugm123/8007 4:07 PM EDT Soqbg5305/30/2025 4:07 PM JZNNjlkownzvfm24.1 ??C (98.7 ??F)10/06/2024 4:07 PM EDTRespiratory Rate--Oxygen Saturation--Inhaled Oxygen Concentration--Weight-- Height--Body Mass Index-- Plan of Treatment Health MaintenanceDue DateLast DoneCommentsCT Zsqdqudubvbg68/03/1958FIT-DNA 1955FIT1955FOBT1955 6788Dpjpszaarfdsd61/03/1956Pneumococcal Vaccine: 65+ Years (1 of 1 - PCV)2007COVID-19 Vaccine ( - 2024- season) , 06/09/2020, 05/19/2020Influenza Vaccine (#1)2024 12/29/20207312Hvsykaacwfe23olorectal Cancer Ugngjwgjn16/18/2034 Insurance Care Teams Team MemberRelationshipSpecialtyStart DateEnd Devon Craven MD [address] [place] [address] PCP - GeneralFamily Medicine09/08/24
--- OUTSIDE RECORDS SUMMARY | 2025-02-28 12:42 | XMS_ITS | Clinical Summary ---
Author Organization [facility] Address [address] [place] [address] Phone Care Team Providers Care Counselling Psychologist Name Role Phone Devon Craven MD Primary Care Provider [phone] Social History Tobacco UseTypesPacks/DayYears UsedDateSmoking Tobacco: Never AssessedSex and Gender InformationValueDate RecordedSex Assigned at BirthNot on fileLegal Sex Male02/01/2022 11:16 PM ESTGender IdentityNot on fileSexual OrientationNot on file Plan of Treatment Health MaintenanceDue DateLast DoneCommentsCT Bjllbwpimcnq53/03/1958Colonoscopy 1955Colorectal Cancer Ykzastnyd12/03/1958FIT-DNA (Cologuard)1955FIT 1955Lipid Panel1955 6240Trvyoorddvfqv01/03/1958Yearly Adult Physical 1955MMR Vaccines (1 of 1 - Standard series)1958Hepatitis C Screening 1975DTaP/Tdap/Td Vaccines (1 - Tdap)1979PSA Prostate Cancer Rjifvadqj01/03/2008Pneumococcal Vaccine (1 of 1 - PCV)2007Zoster Vaccines [...] MemberRelationshipSpecialtyStart DateEnd Devon Craven MD [address] [place] [address] [facility]05/03/11
--- OUTSIDE RECORDS SUMMARY | 2025-02-28 12:42 | XMS_ITS | Encounter Summary ---
Author Organization [facility] Address [address] [place] [address] Care Team Providers Care Case Assistant Name Role Phone Devon Craven MD Primary Care Provider [phone] Encounter Details DateTypeDepartmentCare Team (Latest Contact Info)Syyqthtqthz78/12/2025Orders Only [facility] [address] [place] [address] Jazmín Kohli MA Benign hypertensive 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 (Primary Dx) Social History Tobacco UseTypesPacks/DayYears UsedDateSmoking Tobacco: NeverSmokeless Tobacco: NeverAlcohol UseStandard Drinks/WeekCommentsNot Currently0 (1 standard drink = 0.6 oz pure alcohol)Sex and Gender InformationValueDate RecordedSex Assigned at BppdrGlkb45/13/2025 2:00 PM EDTLegal QpxZwiv3709/05/2021 11:07 PM EDTGender PlrwehraImty90/13/2025 2:00 PM EDTSexual OrientationHeterosexual or Straight 12/20/2024 2:00 PM EDTdocumented as of this encounter Plan of Treatment Not on file documented as of this encounter Visit Diagnoses Diagnosis Benign hypertensive 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- Primary Benign hypertensive heart disease without heart failure documented in this encounter Care Teams Team MemberRelationshipSpecialtyStart DateEnd Date Devon Craven MD [address] [place] [place] [address] PCP - Nbteaxb01/12/25documented as of this encounter
--- OUTSIDE RECORDS SUMMARY | 2025-02-28 12:42 | XMS_ITS | Clinical Summary ---
Author Organization [facility] Address [address] [place] [address] Care Team Providers Care Mop Man Name Role Phone Devon Craven MD Primary Care Provider [phone] Allergies Active AllergyReactionsCriticalityNoted DateCommentsAmlodipineNausea Only 12/24/20241373TvqeknjqfknfedqqlvuCvacdcqu60/12/2025MethocarbamolGI intolerance 11/12/2023enicillinsHives,TpiuOue9607/04/2006 Medications MedicationSigDispense QuantityRefillsLast FilledStart DateEnd DateStatus carvedilol (Coreg) 25 mg tablet Take 25 mg by mouth with breakfast and with evening meal.Active oxyCODONE (Roxicodone) 5 mg immediate release tablet Take 5 mg by mouth if needed each day.Active ferrous sulfate 325 (65 Fe) MG tablet Take 325 mg by mouth if needed.07/06/2024tive furosemide (Lasix) 20 mg tablet Take 20 mg by mouth if needed.Active magnesium aspart,citrate,oxide (Triple Magnesium Complex) 400 mg magnesium capsule Take 1 tablet by mouth in the morning.Active tadalafil (Cialis) 5 mg tablet Take 5 mg by mouth in the morning.Active hydroCHLOROthiazide (HYDRODiuril) 25 mg tablet Indications:Primary hypertensionTake 1 tablet (25 mg) by mouth in the morning. 90 tablet ctive irbesartan (Avapro) 150 mg tablet Indications:Benign hypertensive 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 Take 1 tablet (150 mg) by mouth once daily as directed. 90 tablet 5Active irbesartan (Avapro) 150 mg tablet Take 150 mg by mouth in the morning.Discontinued(Reorder) hydroCHLOROthiazide (HYDRODiuril) 25 mg tablet Indications:Primary hypertensionTake 0.5 tablet once daily. 45 tablet Discontinued(Reorder) Active Problems ProblemNoted DateDiagnosed DateAdenomatous polyp of colon12/24/2024nemia 12/24/2024nkle aqtslz4312/24/2024enign prostatic ailluvsgjtt31/17/2025PH with obstruction/lower urinary tract vanywkcy02/17/2025MI 28.0-28.9,adult12/24/2024 Cecal polyp12/24/20248529Llfsuyqrur74/17/2025Diverticulosis of intestine, part unspecified, without perforation or abscess without ottilxbr91/17/2025Edema 12/24/2024Gross oaejzmqen55/17/3128Hvjrthnbgyeg84/17/2025Impingement syndrome of both cpvdzsyqx17/17/2025Incarcerated epigastric pavvbj9112/24/2024Internal ttoyxtpdkk16/17/2025Intradermal nevus12/24/20241787Lzrbjqvors82/17/2025Personal history of adenomatous and serrated colon qgqisq2612/24/2024Pure keyogwdzmmkpnwjyzdtw67/17/2025Previous back aivkisq1712/24/2024Sacroiliitis, not elsewhere cdoadbgppo93/17/2025Screening for malignant neoplasm of colon 12/24/2024Sigmoid yvkckcguxjnypv70/17/2025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12/24/2024Varicose veins of lower rhukvenfk06/17/2025Varicose veins of other specified sites12/24/2024Ventricular premature ozgjnyapuhsdpo78/17/2025ute postoperative pain06/08/2024Elevated hlagrjfv54/01/2025S/P cervical spinal nlmgdo3906/08/2024ervical spondylosis with fiagabkesr89/27/2025Low back pain 10/02/2023Edema of both lower tjqeumrujtm10/01/2024Intractable pain09/08/2023 Localized swelling of lower /01/2024ain and swelling of lower /01/2024Foot drop, right foot08/20/2023Scoliosis of lumbar region due to degenerative disease of spine in adult08/20/2023History of penicillin allergy 4Primary mtrykxwrwcyn34/29/7727Jmhjgfjszisn73/06/2020SVT (supraventricular tachycardia)07/14/2019Other seborrheic lqkdauzdd72/02/2009 Benign neoplasm of skin08/05/2008 Encounters DateTypeDepartmentCare WmhpOrtxvzgzggy93/12/2025Orders Only [facility] [address] [place] [facility] [place] [address] Jazmín Kohli MA Benign hypertensive 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 (Primary Dx) 02/07/2025Telephone [facility] [address] [place] [address] Tania Colon MA 02/07/2025Telephone [facility] [address] [place] [facility] [place] [address] Tania Colon MA 12/24/2024 3:30 PM EDTOffice Visit [facility] [address] [place] [address] Tobi Mccullough MD Primary hypertension (Primary Dx); LVH (left ventricular hypertrophy)12/22/2024Orders Only [facility] [address] [place] [address] Provider, MD Sandie from Last 3 Months Family History Medical HistoryRelationNameCommentsMelanomaBrotherCoronary artery diseaseFather MelanomaFatherStrokeMotherRelationNameStatusCommentsBrotherDeceasedFather DeceasedMotherDeceased Social History Tobacco UseTypesPacks/DayYears UsedDateSmoking Tobacco: NeverSmokeless Tobacco: Never Tobacco Cessation:Counseling Given: Not Answered Alcohol UseStandard Drinks/WeekCommentsNot Currently0 (1 standard drink = 0.6 oz pure alcohol)Sex and Gender InformationValueDate RecordedSex Assigned at Male12/20/2024 2:00 PM EDTLegal VevIefg7209/05/2021 11:07 PM EDTGender Identity Male12/20/2024 2:00 PM EDTSexual OrientationHeterosexual or Rsquwryf06/13/2025 2:00 PM EDT Last Filed Vital Signs Vital SignReadingTime TakenCommentsBlood Vzmipcin724/7112/24/2024 3:36 PM EDT Rrikj416712/24/2024 3:36 PM EDTTemperature--Respiratory Rate--Oxygen Bpkluncacx45% 12/24/2024 3:36 PM EDTInhaled Oxygen Concentration--Eqojsk53.4 kg (206 lb) 12/24/2024 3:36 PM ZUFIdmyst670.9 cm (6')06/27/2020 10:21 AM EDTBody Mass Index 27.9406/27/2020 10:21 AM EDT Plan of Treatment Health MaintenanceDue DateLast DoneCommentsCT Ydorjgjzpqti75/03/1958FIT-DNA 1957FIT1957FOBT1955 6376Aowzutnhbhmld96/03/1958Depression Screening 1969Adult Krjwrjx3903/12/1979Pneumococcal Vaccine: 50+ Years (1 of 1 - PCV) 2007Zoster Vaccines (1 of 2)2007Fall Risk Thyizcsit24/03/2023OVID- 19 Vaccine ( season)/, 06/09/2020, 05/19/2020 Influenza Vaccine (#1)/4438Mvvlxvnvycl87 Colorectal Cancer Nilkijlhr92/18/2034HIB VaccinesAged OutNo longer eligible based on patient's [...] DateEnd Date Devon Craven MD [address] [facility] [address] [address] PCP - Cuuwjpu85/12/25
--- OUTSIDE RECORDS SUMMARY | 2025-02-28 12:42 | XMS_ITS | Clinical Summary ---
Author Organization [facility] Address [address] [place], [place] [address] Care Team Providers Care Circuitry Negative Inspector Name Role Phone Devon Craven MD Primary Care Provider [phone] Jones Keith Md MD Unavailable Unavailable Allergies Active AllergyReactionsCriticalityNoted FwppFyqsbzevKdzmtsutarzXnbz43/27/2007 NspztmrgwprudSqinhfvfhvl47/04/2024 Medications MedicationSigDispense QuantityRefillsLast FilledStart DateEnd DateStatus furosemide (LASIX) 40 mg tablet Take 40 mg by mouth once daily.Active acetaminophen (TYLENOL) 325 mg tablet 2 tablets by ORAL/FEEDING TUBE route every 6 hours as needed for pain.10/04/2023 Active carvedilol (COREG) 25 mg tablet Take 1 tablet by mouth two times a day with meals. 60 tablet 10/04/2023ctive lidocaine (LIDODERM) 5 % Take as instructed on package 10 Patch 4Active pregabalin (LYRICA) 50 mg capsule Indications:Adverse effect of treatment, sequelaTake 2 capsules by mouth three times a day for 90 days. 180 capsule 5Active senna-docusate (SENNA-S) 8.6-50 mg per tablet Take 2 tablets by mouth two times a day as needed for constipation. 20 tablet 5Active naloxone 4 mg/actuation nasal spray (NARCAN) Indications:Acute postoperative pain,S/P cervical spinal fusion,Cervical spondylosis with myelopathyUse 1 spray in one nostril as needed for overdose. May repeat every 2 to 3 min in alternating nostrils until medical assistance is available 2 Each 5Active aspirin, enteric coated (ASPIRIN, ENTERIC COATED) 81 mg EC tablet Take 1 tablet by mouth once daily.5Active Active Problems ProblemNoted DateDiagnosed DateS/P cervical spinal qmqyid8406/08/2024 Assessment & Plan (06/08/2024 10:15 AM EDT): Assessment: s/p cervical spinal fusion PLAN: -PT/OT continue -Out of bed to chair for meals. -Ambulate pt 3-4 x daily as able. -Monitor: signs, symptoms, disease progression, disease regression. -Evaluate: test results, medication effectiveness, response to treatment. -Pain control: analgesics titrated per consultation with Jones Hogue MD -Plan discussed with Jones Hogue MD Acute postoperative pain06/08/2024 Assessment & Plan (06/08/2024 10:15 AM EDT): Assessment: Acute postop pain PLAN: -PRN analgesics. -PT/OT continue -Monitor: signs, symptoms, disease progression, disease regression. -Evaluate: test results, medication effectiveness, response to treatment. -Pain control: analgesics titrated per consultation with Jones Hogue MD -Plan discussed with Jones Hogue MD Elevated iersgnyy77/01/2025 Assessment & Plan (06/08/2024 2:03 PM EDT): [...] regression. -Evaluate: test results Cervical spondylosis with ggxloekbxs29/27/2025 Assessment & Plan (06/08/2024 10:15 AM EDT): [...] with Dr. Keith. Recommend patient wear a Ambler J cervical collar for 4 weeks after [...] with Dr. Keith. Recommend patient wear a Ambler J cervical collar for 4 weeks after [...] 2-3 days -D/w Dr. Keith Low back pain10/02/2023 Assessment & Plan (10/03/2023 11:16 AM EDT): [...] outpatient for foot drop after discharge Intractable pain09/08/2023 Assessment & Plan (09/10/2023 12:52 PM EDT): Assessment: POA PLAN: -Continued RLE pain, improved with medication adjustments -Continue gabapentin 300 tida -Continue zanaflex -Continue prn oxycodone Edema of both lower wjtoelqtuog42/01/2024Localized swelling of lower extremity 09/08/2023ain and swelling of lower zcpkmgouq95/01/2024 Assessment & Plan (09/10/2023 12:51 PM EDT): Assessment: POA PLAN: -DVT scan negative -Continue JULIA hose Scoliosis of lumbar region due to degenerative [...] days -D/w Dr. Keith Foot drop, right foot08/20/2023 Assessment & Plan (08/22/2023 10:37 AM EDT): [...] improvement in R foot drop S/P lumbar ibczid9408/19/2023 Assessment & Plan (09/10/2023 12:51 PM EDT): Assessment: S/p L2-5 OLIF on 08/18 PLAN: -Pain control: continue present regimen -PT/OT rec [facility] -MRI today -DVT ppx: continue IPCs, heparin [...] screws PLAN: -See degenerative scoliosis POC Primary ivtldpuxtpof15/29/2024 Assessment & Plan (06/08/2024 10:16 AM EDT): [...] POA PLAN: -Resume coreg History of penicillin tbhtqvq9308/06/2023SVT (supraventricular tachycardia) 08/06/2023 Assessment & Plan (06/07/2024 [...] home coreg Benign neoplasm of skin, site xjkxioyylys47/02/2009Other seborrheic keratosis 09/08/2008ENIGN NEOPLASM SKIN NEC-exam08/05/2008Neoplasm of uncertain behavior of skin08/05/2008 Family History Medical HistoryRelationCommentsCancerFathermalignant melanomaRelationStatus CommentsFather Social History Tobacco UseTypesPacks/DayYears UsedDateSmoking Tobacco: NeverSmokeless Tobacco: FormerChewQuit: 2000 Tobacco Cessation:Counseling Given: Not Answered Alcohol UseStandard Drinks/WeekCommentsNever0 (1 standard drink = 0.6 oz pure alcohol)[facility] UtilitiesAnswerDate RecordedIn the past 12 months has the [employer], gas, oil, or water [employer] threatened to shut off services in your home?No 08/20/2023HQ-2AnswerDate RecordedPHQ-2 scsyn674Hunger Vital SignAnswer Date RecordedWithin the past 12 months, you worried that your food would run out before you got the money to buymore.Never true08/20/2023Within the past 12 months, the food you bought just didn't last and you didn't have money to get more.Never true08/20/2023RAPARE - TransportationAnswerDate RecordedIn the past 12 months, has lack of transportation kept you from medical appointments or from getting medications?No08/20/2023In the past 12 months, has lack of transportation kept you from meetings, work, or from getting things needed for daily living?No08/20/2023Housing Stability Vital SignAnswerDate RecordedIn the last 12 months, was there a time when you were not able to pay the mortgage or rent on time?No08/20/2023Number of Places Lived in the Last YearNot on file 08/20/2023In the last 12 months, was there a time when you did not have a steady place to sleep or slept in peacehealther (including now)?No08/20/2023rea Deprivation IndexAnswerDate RecordedNational Score (1-100), lower number is lower risk61 08/06/2023State Score (1-10), lower number is lower uumg409ata from: https://www.neighborhoodatlas.[facility].edu/. Last address used for pustzwaxmsy[address]08/06/2023Sex and Gender InformationValueDate RecordedSex Assigned at XbjkmJnlg57/11/2024 4:19 AM ESTLegal VleEnbj81/02/2012 10:36 AM EST Gender YnnbyjldZpku92/11/2024 4:19 AM ESTSexual NkqrjdsevjaIujfhgdu05/11/2024 4:19 AM EST Last Filed Vital Signs Vital SignReadingTime TakenCommentsBlood Ppzbkxsk876/7904 9:53 AM EDT Tlhhg767206/16/2024 9:53 AM VROGnclsmftqna22.8 ??C (98.3 ??F)06/16/2024 9:53 AM EDTRespiratory Hmvo946106/08/2024 1:48 PM EDTOxygen Izfjhfahbr53%06/16/2024 9:53 AM EDTInhaled Oxygen Concentration--Bdmypz81 kg (205 lb)05/12/2024 11:13 AM EST Urvyhz778.9 cm (6')05/12/2024 11:13 AM ESTBody Mass Index27.803 11:13 AM EST Plan of Treatment Health MaintenanceDue DateLast DoneCommentsAnnual PCP Team Chronic Disease Visit 1975Anxiety Lmokvxhpy50/03/1976Depression Fkuhntpol68/03/1976Hepatitis C Ltiuxgygy28/03/1976DTaP,Tdap,Td Vaccine (1 - Tdap)1976Lipid Screening 1992CT Tnnqfyvqtlvu97/03/2003Cologuard (FIT-DNA)2002Colonoscopy 2002Colorectal Cancer Aycvqpwvt46/03/2003Fecal Occult Blood2002 Hqgrufqnrtujt70/03/2003Pneumococcal Vaccine: 50+ (1 of 1 - PCV)2007RSV Vaccine (1 - Risk 50-74 years 1-dose series)2007Shingrix Vaccine (1 of 2) 2007dvance Directive Qramvdqwcq79/01/2025Covid-19 Vaccine ( season)/, 06/09/2020, 05/19/2020Influenza Vaccine (#1) /rostate Cancer Screening Tabccixcya60 Diabetes Ihxphxdxi80/03/2024, 06/07/2024, 06/06/2024, Additional history exists Medical Devices ImplantedTypeAreaManufacturerDevice IdentifierShelf Expiration DateModel / Serial / LotSignify Gel Instafill Cartridge 5cc [id number] Implanted:Q[facility]: Spine - Lumbar GLOBUS OUQDNMO75/19/[id number] / / [id number] Mis Locking Cap Implanted:Qty: 8 on 08/[facility]/A: Spine - Lumbar GLOBUS [id number] / / Graft Infuse 20ga Medium Bovine Collagen Rhbmp-2 2x1in Bone Vial Absorbable - [id number] Implanted:Qty: 1 on 08/19/2023 by Jones Keith MD at [facility]/A: Spine - LumbarMEDTRONIC SOFAMOR [id number] / / [id number] Gel Instafill Cartridge 5cc [id number] Implanted:Qty: 1 on 08/19/2023 at [facility]/A: Spine - LumbarGLOBUS WXSHSDT14/19/[id number] / / [id number] Canopy 9mm Bone Shelf Inline Spine - [id number] Implanted:Qty: 3 on [facility]02/20[facility]/A: Spine - Cervical GLOBUS [id number] / / Creo Mis 5.5mm Curved Asa Ti Alloy 10cm Implanted:Qty: 1 on 08/19/2023 at [facility]/A: Spine - LumbarGLOBUS [id number] / / Creo Mis 5.5mm Curved Asa Ti Alloy 11cm Implanted:Qty: 1 on 08/19/2023 at [facility]/A: Spine - LumbarGLOBUS [id number] / / 4.5x45 Implanted:Qty: 1 on 08/19/2023 at [facility]/A: Spine - LumbarGLOBUS [id number] / / 5.0x45 Implanted:Qty: 1 on 08/19/2023 at [facility]/A: Spine - LumbarGLOBUS [id number] / / Creo One Robotic Modular Screw 6.5mm X 50mm Implanted:Qty: 2 on 08/19/2023 at [facility]/A: Spine - LumbarGLOBUS [id number] / / Creo One Robotic Modular Screw 6.5mm X 55mm Implanted:Qty: 4 on 08/19/2023 at [facility]/A: Spine - LumbarGLOBUS [id number] / / Screw Canopy 2.6mm 4mm Bone Self Drill Laminoplasty Spine - [id number] Implanted:Qty: 5 on 06/02/2024 at [facility]/A: Spine - Cervical GLOBUS [id number] / / Canopy 2.6mm Screw Self-Drilling 6mm Implanted:Qty: 6 on 06/02/2024 at [facility]/A: Spine - Cervical GLOBUS [id number] / / Bilat Iol 11/2022Eye - CorneaSpacer Rise-L 3d Lordotic [id number] Spinal Nonsterile Implanted:Qty: 1 on 08/19/2023 at [facility]/A: Spine - LumbarGLOBUS [id number] / / Spacer Rise-L 3d Lordotic [id number] Spinal Nonsterile Implanted:Qty: 2 on 08/19/2023 at [facility]/A: Spine - LumbarGLOBUS [id number] / / Procedures Procedure NamePriorityDate/TimeAssociated DiagnosisCommentsCOMPREHENSIVE METABOLIC KOMLQWkcauvk13/01/2025 6:26 AM EDT from Last 3 Months or Most Recently Relevant to Health Maintenance Results * (ABNORMAL) COMPREHENSIVE METABOLIC PANEL (06/08/2024 6:26 AM EDT)Component ValueRef RangeTest MethodAnalysis TimePerformed AtPathologist Signature Protein, Total6.1(L)6.3 - 8.0 g/dL06/08/2024 9:32 AM [facility] LABAlbumin3.5(L)3.9 - 4.9 g/dL06/08/2024 9:32 AM [facility] LABCalcium, Total9.58.5 - 10.2 mg/dL06/08/2024 9:32 AM EDT [facility] LABBilirubin, Total0.80.2 - 1.3 mg/dL06/08/2024 9:32 AM [facility] LABAlkaline Uwkbzqzoftm0817 - 113 U/L 06/08/2024 9:32 AM [facility] NDJLCM2073 - 40 U/L 06/08/2024 9:32 AM [facility] LABComment:Results may be falsely increased due to interference from hemolysis. Suggest reorder as clinically indicated.CSO5483 - 54 U/L06/08/2024 9:32 AM [facility] OVFBhlbjfz1193 - 99 mg/dL06/08/2024 9:32 AM [facility] LABComment: The [place] Diabetes Association (ADA) provides guidance for cutoff values for fasting glucose andrandom glucose. The ADA defines fasting as no [...] Standards of Medical Care in Diabetes 2016, [place] Diabetes Association. Diabetes Care. 2016.39(Suppl 1). TQA434 - 24 mg/dL06/08/2024 9:32 AM [facility] Creatinine0.760.73 - 1.22 mg/dL06/08/2024 9:32 AM [facility] QGOQirdbs359987 - 144 mmol/L06/08/2024 9:32 AM [facility] LABPotassium4.23.7 - 5.1 mmol/L06/08/2024 9:32 AM [facility] IIJDzgsdapk45186 - 107 mmol/L06/08/2024 9:32 AM [facility] YYSQE47738 - 30 mmol/L06/08/2024 9:32 AM [facility] LABAnion Pkf343 - 15 mmol/L06/08/2024 9:32 AM [facility] LABEstimated Glomerular Filtration Rate99>=60 mL/min/1.73m 06/08/2024 9:32 AM [facility] LABComment:Estimated Glomerular Filtration Rate (eGFR) is calculated using the 2020 CKD-EPI creatinine equation. This equation utilizes serum creatinine, sex, and age as parameters. The creatinine assay has traceable calibration to isotope dilution- mass spectrometry. Refer to KDIGO guidelines for clinical interpretation. In patients with unstable renal function, e.g. those with acute kidney injury, the eGFRmay not accurately reflect actual GFR.Specimen (Source)Anatomical Location / LateralityCollection Method / VolumeCollection TimeReceived TimeBloodBLOOD SPECIMEN / UnknownVenipuncture / Dimlzve3506/08/2024 6:26 AM EDT06/08/2024 7:08 AM EDT Narrative Authorizing ProviderResult TypeResult StatusSteven R Lane DOLLYMAN.CNPLABORATORY Final ResultPerforming OrganizationAddressCity/State/ZIP CodePhone Number [facility] [address] [address], from Last 3 Months or Most Recently Relevant to Health Maintenance Insurance Advance Directives * Full Code (Latest Code Status on File) Date ActivatedDate InactivatedComments09/08/2023 1:22 AM09/10/2023 7:51 PMQuestion AnswerCommentsFull Code Order Discussed With:* Patient Care Teams Team MemberRelationshipSpecialtyStart DateEnd Date Devon Craven MD PCP - General05/05/06 Jones Keith Md, Spine Health09/07/23
--- OUTSIDE RECORDS SUMMARY | 2025-02-28 12:42 | XMS_ITS | Patient Health Record ---
Author Organization The [facility] in [place] Address [address] [place] [address] Care Team Providers Care Live Truck Technician Name Role Phone Micheal Cain Primary Care Provider Rita Mcmahon [phone] Allergies Allergen (clinical drug ingredient) Drug/Non Drug Allergy documented on EMR Reaction Allergy Type Onset Date Status methocarbamol Robaxin Unknown Drug Allergy ActivePenicillinhivesDrug AllergyActive Results Component Value Reference Range Notes BNP Reviewed date:07/06/2024 12:21:03 PM Interpretation: Performing Lab: Notes/Report: [facility] , NT Pro B Type Natriuretic Pept 226.0 <=900.0 pg /mL Performing Lab:see noteML - [facility] LBUA DIP NONAUTO WO MICRO (98999) - IN OFFICE Reviewed date:02/10/2025 05:24:49 PM Interpretation: Performing Lab: Notes/Report: COLORorangeCLARITYclearGLUCOSEnegBILIRUBINnegKETONEnegSPECIFIC GRAVITY1.025BLOOD brvJU6TNEMGSHjungfVXTWHQCXKMVKjkoRHXKKFCrafNMYZPHYSM ESTERASEnegCBC AUTO DIFF Reviewed date:09/28/2024 04:08:58 PM Interpretation: Performing Lab: Notes/Report: [facility] ,White Blood Count6.34.0-11.0 10 3/uLRed Blood Count4.464.70-6.10 10 6/uL Ohyxdcetyv24.914.0-18.0 g/hQAvrrocrhyn90.942.0-54.0 %Mean Corpuscular Itxsoi14.7 80.0-94.0 fLMean Corpuscular Xpczgwtltx91.225.9-34.0 pgMean Corpuscular HGB Conc 34.029.9-35.2 g/dLRed Cell Distribution Width13.711.0-15.0 %Platelet Ygoxw322 150-450 10 3/uLMean Platelet Volume9.49.5-13.5 fLNeutrophils Percent Auto49.8 43.0-75.0 %Lymphocytes Percent Auto32.120.5-60.0 %Monocytes Percent Auto12.61.7- 12.0 %Eosinophils Percent Auto3.90.9-7.0 %Basophils Percent Auto0.80.2-2.0 % Immature Granulocytes Pct Auto0.80.0-0.5 %Neutrophils Absolute Auto3.21.4-6.5 10 3/uLLymphocytes Absolute Auto2.01.2-3.8 10 3/uLMonocytes Absolute Auto0.80.3-0.8 10 3/uLEosinophils Absolute Auto0.30.0-0.7 10 3/uLBasophils Absolute Auto0.10.0- 0.1 10 3/uLImmature Granulocytes Abs Auto0.050.00-0.03 10 3/uLPerforming Lab:see noteML - [facility] LBGLYCOHEMOGLOBIN A1C Reviewed date:09/28/2024 04:08:58 PM Interpretation: Performing Lab: Notes/Report: [facility] ,Glycohemoglobin A1C5.54.5-6.2 % > 7.0 ADA RECOMMENDED LIMIT 4.0 - 6.0 ACTION SUGGESTED ADA THERAPEUTIC TARGET < 7.0 Estimated Average Drvicpy956Qtuupvxasp Lab:see noteML - [facility] LB PROF 14(COMP METB) Reviewed date:09/28/2024 04:08:58 PM Interpretation: Performing Lab: Notes/Report: [facility] ,Dbmwcu435738-858 mmol/LPotassium4.73.5-5.1 mmol/GLhmepdft28130-750 mmol/LCarbon Mgdvfxz54.921.0-32.0 mmol/LAnion Gap12.4Mlfxuzk1644-374 mg/dLBlood Urea Nitrogen 26.07.0-18.0 mg/dLCreatinine1.020.70-1.30 mg/dLEstimated GFR ( Eugenie>60 >=60 mL/min/1.73m 2Estimated GFR (Non- Gracie>60>=60 mL/min/1.73m 2BUN Creatinine Ratio25.3Adcvxfd4.58.5-10.1 mg/dLBilirubin Total1.00.2-1.0 mg/dL Aspartate Amino Fdexqtyrmvr4541-66 U/LAlanine Bcdjxmeksijqarjp9355-82 U/L Alkaline Ydagovdxqav6813-683 U/LTotal Protein6.66.4-8.2 g/dLAlbumin Level3.83.4- 5.0 g/dLGlobulin2.8Albumin Globulin Ratio1.4Performing Lab:see noteML - [facility] LBCA echo doppler complete Reviewed date:10/18/2024 07:58:21 PM Interpretation: Performing Lab: Notes/Report: Source Facility: [place] [address] Cardiology Report Signed Patient: RAZA RODRIGUEZ MR#: [id number] : 1955 Acct:[id number] Age/Sex: 69 / M ADM Date: 10/18/24 Loc: CARD Attending Dr: Ester Cain M.D. Ordering Physician: Ester Cain M.D. Date of Service: 10/18/24 Procedure(s): CA echo doppler complete Accession Number(s): [id number] cc: Ester Cain M.D. Patient Name: RAZA RODRIGUEZ MR#: [id number] : 1955 Exam Date: 10/18/2024 Ordering Doctor: [...] MCCULLOUGH Signed By: 10/18/241901 DD/ 00 TD/TT: Underwriting Consultant:YAIR T3 Reviewed date:11/08/2024 02:09:43 PM Interpretation: Performing Lab: Notes/Report: [facility] ,Free T32.512.18-3.98 pg/mLPerforming Lab:see noteML - [facility] LB T4 Reviewed date:11/08/2024 02:09:43 PM Interpretation: Performing Lab: Notes/Report: [facility] ,T4 Thyroxine4.804.50-12.10 ug/dLPerforming Lab:see noteML - [facility] LBTSH Reviewed date:11/08/2024 02:09:43 PM Interpretation: Performing Lab: Notes/Report: [facility] ,Thyroid Stimulating Hormone0.3780.358-3.740 uIU/mLPerforming Lab:see noteML - [facility] LBTroponin I High Sensitivity Reviewed date:07/06/2024 12:21:03 PM Interpretation: Performing Lab: Notes/Report: [facility] ,Troponin I High Vqgsolgkbtc38.04.0-76.1 pg/mL WITH OTHER DIAGNOSTIC AND CLINICAL INFORMATION. CUT-OFF POINTS HAVE BEEN ESTABLISHED BASED ON THE FOURTH USED IN ISOLATION BUT SHOULD BE INTERPRETED IN CONJUNCTION UNIVERSAL DEFINITION OF MYOCARDIAL INFARCTION. THE UPPER NOTE: HIGH-SENSITIVITY TROPONIN ASSAY IS NOT INTENDED TO BE DIAGNOSIS. HAS BEEN CONFIRMED THE DECISION THRESHOLD FOR [place] 99TH PERCENTILE = 76.2 PG/ML PERCENTILE OF cTnI DISTRIBUTION IN A REFERENCE POPULATION, REFERENCE LIMIT (URL) OF TROPONIN, DEFINED THE 99TH Performing Lab:see noteML - [facility] LBTSH Reviewed date:07/06/2024 12:21:03 PM Interpretation: Performing Lab: Notes/Report: [facility] ,Thyroid Stimulating Hormone2.3260.358-3.740 uIU/mLPerforming Lab:see noteML - [facility] LBT4 Reviewed date:07/06/2024 12:21:03 PM Interpretation: Performing Lab: Notes/Report: [facility] ,T4 Thyroxine5.404.50-12.10 ug/dLPerforming Lab:see noteML - [facility] LBPSA SCREENING Reviewed date:07/06/2024 12:21:03 PM Interpretation: Performing Lab: Notes/Report: [facility] ,Prostate Specific Antigen Scrn1.08<=4.00 ng/mLPerforming Lab:see noteML - [facility] LBPROF 14(COMP METB) Reviewed date:07/06/2024 12:21:03 PM Interpretation: Performing Lab: Notes/Report: [facility] ,Zoxvej832540-007 mmol/LPotassium3.93.5-5.1 mmol/AZksnyunh64940-204 mmol/LCarbon Yrrywln55.421.0-32.0 mmol/LAnion Gap14.7Pnbuqiy8977-874 mg/dLBlood Urea Kwdrlwgz08.07.0-18.0 mg/dLCreatinine0.950.70-1.30 mg/dLEstimated GFR ( Eugenie>60>=60 mL/min/1.73m 2Estimated GFR (Non- Gracie>60>=60 mL/min/1.73m 2BUN Creatinine Ratio21.4Aucteww5.28.5-10.1 mg/dLBilirubin Total0.90.2-1.0 mg/dL Aspartate Amino Skluseqtphp5811-08 U/LAlanine Ixdqxqtfxjaseumq5334-96 U/L Alkaline Vlgyebspcgb9081-973 U/LTotal Protein6.16.4-8.2 g/dLAlbumin Level3.63.4- 5.0 g/dLGlobulin2.5Albumin Globulin Ratio1.4Performing Lab:see noteML - [facility] LBLIPID PROFILE Reviewed date:07/06/2024 12:21:03 PM Interpretation: Performing Lab: Notes/Report: [facility] ,Pzodyyjdhafxx43<=150 mg/oBOkrzrsjzyqf874<=200 mg/dLHDL Zjyexztgmwm8318-65 mg/dL <40 mg/dl - HIGH CARDIOVASCULAR RISK > or =60 mg/dl - LOW CARDIOVASCULAR RISK LDL Cholesterol Ejihyfqvbe038.4 >190 mg/dl VERY HIGH 130-159 mg/dl BORDERLINE HIGH 160-189 mg/dl HIGH <100 mg/dl OPTIMAL 100-129 mg/dl NEAR OR ABOVE OPTIMAL VLDL DTGQQYHIPHJ42.6Chol HDL Ratio3.8 3.3 - 4.4 LOW RISK 7.1 - 11.0 MODERATE RISK 4.4 - 7.1 AVERAGE RISK >11.0 HIGH RISK Performing Lab:see noteML - [facility] LBGLYCOHEMOGLOBIN A1C Reviewed date:07/06/2024 12:21:03 PM Interpretation: Performing Lab: Notes/Report: [facility] ,Glycohemoglobin A1C5.34.5-6.2 % ACTION SUGGESTED ADA THERAPEUTIC TARGET < 7.0 ADA RECOMMENDED LIMIT 4.0 - 6.0 > 7.0 Estimated Average Hlyvvyw237Cywabljnuo Lab:see note - [facility] LB FREE T3 Reviewed date:07/06/2024 12:21:03 PM Interpretation: Performing Lab: Notes/Report: [facility] ,Free T33.522.18-3.98 pg/mLPerforming Lab:see noteML - [facility] LB CBC AUTO DIFF Reviewed date:07/06/2024 12:21:03 PM Interpretation: Performing Lab: Notes/Report: [facility] ,White Blood Count6.94.0-11.0 10 3/uLRed Blood Count3.964.70-6.10 10 6/uL Lngilwvduv73.814.0-18.0 g/cBFfpplunfnl42.442.0-54.0 %Mean Corpuscular Ocvlrh59.4 80.0-94.0 fLMean Corpuscular Pmuiapdcvs42.325.9-34.0 pgMean Corpuscular HGB Conc 34.229.9-35.2 g/dLRed Cell Distribution Width12.511.0-15.0 %Platelet Dgwkl145 150-450 10 3/uLMean Platelet Imavpd38.09.5-13.5 fLNeutrophils Percent Auto40.2 43.0-75.0 %Lymphocytes Percent Auto39.020.5-60.0 %Monocytes Percent Auto14.11.7- 12.0 %Eosinophils Percent Auto5.30.9-7.0 %Basophils Percent Auto0.70.2-2.0 % Immature Granulocytes Pct Auto0.70.0-0.5 %Neutrophils Absolute Auto2.81.4-6.5 10 3/uLLymphocytes Absolute Auto2.71.2-3.8 10 3/uLMonocytes Absolute Auto1.00.3- 0.8 10 3/uLEosinophils Absolute Auto0.40.0-0.7 10 3/uLBasophils Absolute Auto0.1 0.0-0.1 10 3/uLImmature Granulocytes Abs Auto0.050.00-0.03 10 3/uLPerforming Lab:see noteML - [facility] LBXR cervical spine 2-3V Reviewed date:06/29/2024 08:32:50 PM Interpretation: Performing Lab: Notes/Report: Source Facility: [facility] [place] [address] [place] [address] XRay Report Signed Patient: RAZA RODRIGUEZ MR#: [id number] : 1955 Acct:[id number] Age/Sex: 69 / M ADM Date: 06/29/24 Loc: RAD Attending Dr: StevoStaff Physician Fields Ordering Physician: Jennyfer Garber M.D. Date of Service: 06/29/24 Procedure(s): XR cervical spine 2-3V Accession Number(s): [id number] cc: Ester Cain M.D.; Jennyfer Garber M.D. [place] [address] Patient Name: RAZA RODRIGUEZ MRN: [facility]:[id number] date: 1955 Sex: M Assigned Patient Location: [facility] Current Patient Location: [facility] Accession/Order Number: [id number] Exam Date: 06/29/2024 17:59 Report Date: 06/29/2024 18:00 At the request of: NON-STAFF PHYSICIAN MD Procedure: XR cervical spine 2-3V CERVICAL SPINE 3 views: CLINICAL HISTORY: S/P cervical spinal fusion, Z98.1 COMPARISON: Cervical spine 01/18/2022 FINDINGS: Posterior hardware fixation C4-C6 without hardware complication. Vertebral body heights appear maintained. Diffuse moderate disc space narrowing. No prevertebral soft tissue swelling. XR/XR cervical spine 2-3V IMPRESSION: NO HARDWARE COMPLICATION. Impression dictated by: James Pisano Jr., D.O.06/29/2024 6:00 PM Dictation Location: [place] [address] Electronically authenticated by: [id number] Y Date: 06/29/2024 18:00 Dictated By: James Pisano M.D. Signed By: 06/29/24 180 DD/ 1800 TD/TT: Underwriting Consultant:XR ankle LT min 3V Reviewed date:05/03/2024 08:28:40 PM Interpretation: Performing Lab: Notes/Report: Source Facility: [place] [address] XRay Report Signed Patient: RAZA RODRIGUEZ MR#: [id number] : 1955 Acct:[id number] Age/Sex: 69 / M ADM Date: 05/03/24 Loc: RAD Attending Dr: Ester Cain M.D. Ordering Physician: Ester Cain M.D. Date of Service: 05/03/24 Procedure(s): XR ankle LT min 3V Accession Number(s): [id number] cc: Ester Cain M.D. [place] [address] Patient Name: RAZA RODRIGUEZ MRN: [facility]:[id number] date: 1955 Sex: M Assigned Patient Location: [facility] Current Patient Location: [facility] Accession/Order Number: [id number] Exam Date: 05/03/2024 16:35 Report Date: 05/03/2024 [...] Charlene Souza M.D.05/03/2024 4:41 PM Dictation Location: [place] [address] Electronically authenticated by: [id number] Y Date: 05/03/2024 16:41 Dictated By: Charlene Souza M.D. Signed By: 05/03/24 1644 DD/ 40 TD/TT: Underwriting Consultant:MAIRA Reviewed date:09/28/2024 04:08:58 PM Interpretation: Performing Lab: Notes/Report: [facility] ,Ggyv575.065.0-175.0 ug/dLPerforming Lab:see noteML - [facility] LBMR lumbar spine wo con Reviewed date:02/10/2025 05:24:49 PM Interpretation: Performing Lab: Notes/Report: Source Facility: [facility]-[address] [place] [address] [place] [address] Magnetic Resonance Report Signed Patient: RAZA RODRIGUEZ MR#: [id number] : 1955 Acct:[id number] Age/Sex: 69 / M ADM Date: 02/09/25 Loc: MRI Attending Dr: Ester Hoy M.D. Ordering Physician: Ester Cani M.D. Date of Service: 02/09/25 Procedure(s): MR lumbar spine wo con Accession Number(s): [id number] cc: Ester Cain M.D. [address] [address] Patient Name: RAZA RODRIGUEZ MRN: [facility]:[id number] date: 1955 Sex: M Assigned Patient Location: MRI Current Patient Location: MRI Accession/Order Number: [id number] Exam Date: 02/09/2025 14:00 Report Date: 02/09/2025 22:21 At the request of: ESTER CAIN MD Procedure: MR lumbar spine wo con MRI lumbar spine performed without contrast INDICATION: Lumbar radiculopathy, postsurgical changes with radiculopathy, bilateral foot drop radiating into the right and left leg Comparison: 02/25/2023 FINDINGS: Mild dextrocurvature. Interval multilevel discectomy and spacer placement L3-S1. Posterior pedicle screw hardware L3-S1. Laminectomy changes at the L5 and L4 vertebral body levels. Moderate severe disc space narrowing L1-L3 with Junction degenerative changes at L2-3. There are Modic type I and type III endplate marrow changes at L2-3. Modic type I endplate changes L1-L2.. Conus medullaris terminates at mid L2 T12-L1: Schmorl's node deformities. Gxlm-sm-zthgsohh disc space narrowing and facet arthropathy. No disc protrusion or disc bulge. L1-L2: There is a broad-based disc bulge asymmetric towards the right with endplate osteophytosis and facet arthropathy. Moderate central canal narrowing. There is a superimposed right foraminal to extraforaminal zone bulge there is moderate severe right and moderate left neural foraminal narrowing. Correlate with right L1 radiculopathy. L2-L3: Junctional degenerative changes with circumferential disc bulge with associated endplate osteophytosis extending both foramina zones and bilateral facet arthropathy. There is moderate severe central canal stenosis and right subarticular recess narrowing. There is moderate severe bilateral neural foraminal narrowing with encroachment upon both L3 nerve roots. L3-4: Evidence of extreme lateral discectomy and fusion.. Minimal diffuse disc osteophyte complex with spurring extending both foramina zones noted resulting in moderate right moderate to severe left neural foraminal narrowing. Canal is patent. Left subarticular zone not well evaluated due to artifacts. L4-5: Prior posterior and extreme lateral discectomy and fusion. Diffuse endplate osteophytosis and spurring extending both foramina zones causing moderate to severe bilateral neural foraminal narrowing. Canal is decompressed. L5-S1: Prior posterior fusion and extreme lateral discectomy noted. Diffuse disc osteophyte complex extending to both foramina zones causing moderate left and moderate to severe right-sided neural foraminal narrowing, correlate with possible right L5 radiculopathy. Within the left subarticular zone, there is a focal T2 hyperintensity noted unclear if this is a root sheath versus a synovial cyst arising from the left facet joints measuring 6 mm in size effacing the subarticular space, correlate with left S1 radiculopathy. MR/MR lumbar spine wo con IMPRESSION: Interval postsurgical changes status post multilevel extreme lateral discectomy and posterior enhancement effusion L3-S1 and laminectomy changes. Moderate severe Junction degenerative changes L2-L3 and the predominantly right-sided neural foraminal narrowing at L1-L2 Impression dictated by: Mario Lees M.D. 02/09/2025 10:21 PM Dictation Location: [place] [address] Electronically authenticated by: [id number] Y Date: 02/09/2025 22:21 Dictated By: Mario Lees M.D. Signed By: 02/09/252223 DD/ 20 TD/TT: Underwriting Consultant: Reason For Referral Diagnosis 1 Essential (primary) hypertension (I10) Referral Organization [facility] Referring Provider First Name Micheal Referring Provider Last Name Merissa Referring Provider [facility] branden Referred Provider Tello Mccullough Referred Provider Specialty Cardiology Referral Priority Routine Reason and balance therapy Diagnosis 1 Radiculopathy, lumba r region (M54.16) Referral Organization [facility] Referring Provider First Name Micheal Referring Provider Last Name Merissa Referring Provider [facility] branden Referred Provider [facility], Physical Therap y Referred Provider Specialty Physical The rapist Referral Priority Routine Diagnosis 1 Shoulder impingement (M75.40) Referral Organization [facility] Referring Provider First Name Micheal Referring Provider Last Name Merissa Referring Provider Speciality [facility] markmd Referred Provider [facility], Physical Therap [facility] Referred Provider Specialty Physical The rapist Referral Priority Routine Diagnosis 1 Lumbar radiculopathy (M54.16) Referral Organization [facility] Referring Provider First Name Micheal Referring Provider Last Name Merissa [facility]erred Provider Specialty Neurological Surgery Referral Priority Routine Medications Medication SIG (Take, Route, Frequency, Duration) Notes Start Date End Date Status Magnesium 400 MG 1 tablet Orally once daily ActiveIrbesartan 150 MG1 tablet Orally Once a day; Duration: 30 day(s)12/06/2024 ActiveFerrous Sulfate 325 (65 Fe) MG1 tablet Orally bid; Duration: 30 days 5ActiveValium 10 MG 1 tablet as needed Orally once about 1 hour before procedure; Duration: 1 days F41.9 5ActiveTriamcinolone Acetonide 0.1 %1 application Externally bid 5ActivetiZANidine HCl 4 MGTAKE 2 TABLETS BY MOUTH ONCE DAILY AT BEDTIME; Duration: 90ActiveTerbinafine HCl 250 MG1 tablet Orally Once a day; Duration: 30 days5ActiveoxyCODONE HCl 5 MG1 tablets Orally every 4 hours; Duration: 14 days5ActiveTadalafil 5 MGTAKE 1 TABLET BY MOUTH DAILY; Duration: 30ActiveCoreg 25 MG1 tablet with food Orally Twice a day; Duration: 30 days5Active Social History Tobacco Use: Social History Observation Description Date Details (start date - stop date) Never Smoker NA - NA Tobacco Use/Smoking Question Answer Notes Patient is a nonsmoker Alcohol Screen (Audit-C) Question Answer Notes Did you have a drink containing alcohol in the p ast year? No Esjtqx3NkevvrkoxbbvsnZxhxatcjMQBOC-H (Standard) Question Answer Notes Did you have a drink containing alcohol in the p ast year? No Owxwgz8EpzvqejvuyqyxbNxctdmdo Problems Problem Type SNOMED Code ICD Code Onset Dates Problem Status W/U Status Risk Notes Problem Essential hypertension (83367895 ) Essential (primary) hypertension (I10) ActiveconfirmedProblemHypoglycemia (412135095)Hypoglycemia, unspecified (E16.2) ActiveconfirmedProblemSupraventricular tachycardia (2809056)Supraventricular tachycardia (I47.1)ActiveconfirmedProblemVentricular premature depolarization (805237109)Ventricular premature depolarization (I49.3)ActiveconfirmedProblem Varicose veins of lower extremity (36489175)Asymptomatic varicose veins of unspecified lower extremity (I83.90)ActiveconfirmedProblemDiverticula of intestine (86621802)Diverticulosis of intestine, part unspecified, without perforation or abscess without bleeding (K57.90)ActiveconfirmedProblemSolitary sacroiliitis (168337426)Sacroiliitis, not elsewhere classified (M46.1)Active confirmedProblemCervical radiculopathy (22240774)Radiculopathy, cervical region (M54.12)ActiveconfirmedProblemLumbar radiculopathy (322559767)Radiculopathy, lumbar region (M54.16)ActiveconfirmedProblemBilateral impingement syndrome of shoulders (63091162506315334)Impingement syndrome of unspecified shoulder (M75.40)ActiveconfirmedProblemCervical radiculopathy (21944572)Cervical radiculopathy (M54.12)ActiveconfirmedProblemEdema (52812730)Edema (R60.9)Active confirmedProblemBenign prostatic hyperplasia (068587120)BPH (benign prostatic hyperplasia) (N40.0)ActiveconfirmedProblemLumbar radiculopathy (827468511)Lumbar radiculopathy (M54.16)ActiveconfirmedProblemAnkle sprain (00512033)Ankle sprain (S93.409A)ActiveconfirmedProblemVaricose veins (457266335)Varicose veins (I86.8)ActiveconfirmedProblemCellulitis (825930305)Cellulitis (L03.90)Active confirmedProblemDiverticular disease of colon (367016387)Sigmoid diverticulosis (K57.30)ActiveconfirmedProblemPure hypercholesterolemia (624027324)Pure hypercholesterolemia, unspecified (E78.00)ActiveconfirmedProblemElevated PSA (467583826)Elevated prostate specific antigen [PSA] (R97.20)Activeconfirmed ProblemAnemia (015038000)Acute anemia (D64.9)ActiveconfirmedProblemCecal polyp (952929094)Cecal polyp (K63.5)Activeconfirmed Vital Signs Blood pressure diastolic 64 mm Hg 02/15/2025 Jxhuer64 in02/15/2025lood pressure nclfazzc076 mm Hg02/15/20251609Kwanap809.2 lbs 02/15/2025BMI28.51 kg/m202/15/2025 Procedures Procedure Date Ordered Date Performed Result Body Sit e CARDIO Echocardiogram 10/07/2024 N/A Encounters Encounter Location Date Provider [facility] [address] [place] [address] 02/10/2025 Micheal Hoy [facility] [place] [address] 02/11/2025Pamela CramerLumbar radiculopathy M54.16[facility] [place] [address]/11/2024Doug HoyLumbar radiculopathy M54.16[facility] [place] [address]/Doug HoyLumbar radiculopathy M54.16[facility] [place] [address]/Doug Hoy Radiculopathy, lumbar region M54.16[facility] [place] [address]/10/2024[facility] [address] [place] [address]/12/2024Doug HoyRadiculopathy, lumbar region M54.16[facility] [place] [address]/Doug HoyRadiculopathy, lumbar region M54.16[facility] [place] [address]/09/2024 Micheal HoyRadiculopathy, lumbar region M54.16[facility] [place] [address]/03/2024[facility] [place] [address]/Doug Hoy Radiculopathy, lumbar region M54.16[facility] [place] [address]/Doug [facility] [address] [facility] [place] [address]/01/2025Doug HoyEssential (primary) hypertension H52MljlsvfCommunity Hospital[address] [facility] [place] [address]/Doug HoyEssential (primary) hypertension I10 [facility] [place] [address] 11/03/2024Doug [facility] [place] [address]/03/2024Doug [facility] [place] [address]/06/2024Doug HoyRadiculopathy, lumbar region M54.16 [facility] [facility] [place] [address] 07/06/2024Doug [facility] [place] [address]/02/2025Doug HoyElevated troponin R77.8BSan [facility] [place] [address]/Doug HoyElevated troponin R77.8[facility] [place] [address]/11/2024Doug [facility] [place] [address]/Doug HoyCellulitis L03.90[facility] [place] [address]/05/2024Doug Hoy Radiculopathy, lumbar region M54.16[facility] [place] [address]/Doug HoyRadiculopathy, lumbar region M54.16[facility] [facility] [address]/[facility] [place] [address]/[facility] [place] [address]/05/2024Doug HoyRadiculopathy, lumbar region M54.16[facility] [place] [address]/Doug HoyRadiculopathy, lumbar region M54.16[facility] [place] [address]/08/2024Doug Hoy Radiculopathy, lumbar region M54.16[facility] [place] [address]/Doug HoyRadiculopathy, lumbar region M54.16 and BPH (benign prostatic hyperplasia) N40.0[facility] [place] [address]/[facility] [place] [address]/ Micheal HoyRadiculopathy, lumbar region M54.16 ; Pure hypercholesterolemia, unspecified E78.00 ; Essential (primary) hypertension I10 and Radiculopathy, cervical region M54.12[facility] [place] [address]/11/2024Doug HoyCellulitis L03.90[facility] [place] [address]/09/2024Doug Hoy Cellulitis L03.90[facility] [place] [address]/10/2024Doug HoyLumbar radiculopathy M54.16[facility] [place] [address]/Doug HoyEssential (primary) hypertension I10 ; Urinary frequency R35.0 and Radiculopathy, lumbar region M54.16[facility] [place] [address]/Doug HoyRadiculopathy, lumbar region M54.16 ; Essential (primary) hypertension I10 and Shoulder rwdtffhjqyyI89.40[facility] [place] [address]/Doug HoyLumbar radiculopathy M54.16[facility] [place] [address]/11/2024Doug HoyRadiculopathy, cervical region M54.12 and Radiculopathy, lumbar region M54.16[facility] [place] [address]/08/2024Doug HoyRadiculopathy, lumbar region M54.16 and Cervical radiculopathy M54.12[facility] [address] [place] [address]/Doug HoyElevated troponin R77.8 ; Essential (primary) hypertension I10 ; Hypoglycemia, unspecified E16.2 and Iron deficiency E61.1[facility] [place] [address]/Doug HoyHypoglycemia, unspecified E16.2 ; Acute anemia D64.9 and Radiculopathy, lumbar region M54.16[place] [address] [facility] [place] [address]/Doug HoyEdema R60.9 and Varicose veins I86.8BRobin [place] [address] [place] [address]/06/2024Doug HoyEssential (primary) hypertension I10 and Lumbar radiculopathy M54.16[place] [address] [facility] [place] [address]/Doug HoyEssential (primary) hypertension I10 and Radiculopathy, cervical region M54.12[place] [address] [facility] [place] [address]/05/2024Doug HoyRadiculopathy, lumbar region M54.16 and Radiculopathy, cervical region M54.[address] [place] [address]/Doug HoyAnkle sprain S93.409A ; Essential (primary) hypertension I10 ; Hypoglycemia, unspecified E16.2 ; BPH (benign prostatic hyperplasia) N40.0 and Pure hypercholesterolemia, unspecified E78.00 Assessments Encounter Date Diagnosis (ICD Code) Assessment Notes Treatment Notes Treatment Clinical Notes Section Notes 03/01/2024 Radiculopathy, lumbar region (IC D-10 - M54.16) 03/01/2024ure hypercholesterolemia, unspecified (ICD-10 - E78.00)12/15/2024 Lumbar radiculopathy (ICD-10 - M54.16)01/27/2025Lumbar radiculopathy (ICD-10 - M54.16)02/15/2025Radiculopathy, cervical region (ICD-10 - M54.12)02/15/2025 Radiculopathy, lumbar region (ICD-10 - M54.16)03/15/2024Radiculopathy, lumbar region (ICD-10 - M54.16)03/29/2024Radiculopathy, lumbar region (ICD-10 - M54.16) 2024Radiculopathy, lumbar region (ICD-10 - M54.16)2024Radiculopathy, cervical region (ICD-10 - M54.12)05/03/2024nkle sprain (ICD-10 - S93.409A) 05/03/2024Essential (primary) hypertension (ICD-10 - I10)05/03/2024Hypoglycemia, unspecified (ICD-10 - E16.2)05/03/2024PH (benign prostatic hyperplasia) (ICD- 10 - N40.0)05/03/2024Pure hypercholesterolemia, unspecified (ICD-10 - E78.00) 05/13/2024Radiculopathy, lumbar region (ICD-10 - M54.16) Unalbe to work due to cervical radiculopathy still wtih l;umbar radiculopathy 05/13/2024ervical radiculopathy (ICD-10 - M54.12)07/05/2024Elevated troponin (ICD-10 - R77.8)repeating - trop - he prefers - to repeat labs - sebas do stress yjkuelmu09/28/2025Essential (primary) hypertension (ICD-10 - I10)08/16/2024 Cellulitis (ICD-10 - L03.90)10/11/2024Essential (primary) hypertension (ICD-10 - I10)10/11/2024Lumbar radiculopathy (ICD-10 - M54.16) refill pain mes Stil in PT anadha sfoot drop wearing AFO breace due to faicled lumbar disk surgery 09/13/2024ellulitis (ICD-10 - L03.90)09/27/2024Hypoglycemia, unspecified (ICD- 10 - E16.2)5Acute anemia (ICD-10 - D64.9)10/07/2024Edema (ICD-10 - R60.9)10/07/2024Varicose [...] - M54.16)12/31/2024Radiculopathy, lumbar region (ICD-10 - M54.16) 01/14/2025Radiculopathy, lumbar region (ICD-10 - M54.16)02/11/2025Lumbar radiculopathy (ICD-10 - M54.16)02/15/2025Lumbar radiculopathy (ICD-10 - M54.16) 02/25/2025Lumbar radiculopathy (ICD-10 - M54.16)11/22/2024Essential (primary) hypertension (ICD-10 - I10)11/22/2024Urinary frequency (ICD-10 - R35.0) 12/06/2024Radiculopathy, lumbar region (ICD-10 - M54.16)12/06/2024Essential (primary) hypertension (ICD-10 - I10)12/06/2024Shoulder impingement (ICD-10 - M75.40)11/22/2024Radiculopathy, lumbar region (ICD-10 - M54.16)09/27/2024 Radiculopathy, lumbar region (ICD-10 - M54.16)07/05/2024Hypoglycemia, unspecified (ICD-10 - E16.2)03/29/2024PH (benign prostatic hyperplasia) (ICD-10 - N40.0)03/01/2024Essential (primary) hypertension (ICD-10 - I10)03/01/2024 Radiculopathy, cervical region (ICD-10 - M54.12)cervical mri iwht severe senosis but pt doesnt want eradfjp5607/05/2024Iron deficiency (ICD-10 - E61.1)11/05/2024 Radiculopathy, cervical region (ICD-10 - M54.12)2024OtherRecommended to rest and use a heating pad on the area. Take NSAIDs for pain as exmauo3901/27/2025 OtherRecommended to rest and use a heating pad on the area. Take NSAIDs for pain as ikablm1402/15/2025OtherRecommended to rest and use a heating pad [...] PANEL (CHOL/TRIG/HDL/LDL) 05/03/19 25 CBC WITH DIFF (EXP 01/2025) 05/03/2024 CBC WITH DIFF (EXP 01/2025) 10/15/2023 CARDIO Echocardiogram 10/07/2024 Insulin Level 10/15/2023 CBC W/AUTO DIFF 08/28/2023 PSA, TOTAL 08/19/2022 High Sensitivity Troponin 07/05/2024 PROF 14(COMP METB) 08/19/2022 MRI LSPINE WO CON 02/19/2023 MRI LSPINE WO CON 01/27/2025 US TANMAY DOP LEG LT 08/27/2023 US TANMAY DOP LEG RT 08/27/2023 VC VENOUS REFLUX JAYDON LMT 10/07/2024 XR ANKLE LT MIN 3 V 05/03/2024 THYROID PANEL (T4/TSH/FREE T3) 5 THYROID PANEL (T4/TSH/FREE T3) 4 THYROID PANEL (T4/TSH/FREE T3) 5 THYROID PANEL (T4/TSH/FREE T3) 5 Free PSA 08/19/2022 PSA, SCREENING 05/03/2024 PSA, SCREENING 07/05/2024 CT cervical spine wo con 02/15/2025 CMP (COMP MET OCASIO) w/eGFR CKD-EPI 2024 CMP (COMP MET OCASIO) w/eGFR CKD-EPI 2024 CMP (COMP MET OCASIO) w/eGFR CKD-EPI 2024 CBC WITH DIFF 09/27/2024 CBC WITH DIFF 07/05/2024 Next Appt Details Provider Name:Micheal Manning Merissa, 11:15:00 AM, [address] [place], [address], Insurance Providers Payer Name Payer Address Payer Phone Subscriber Number Group Number Insured Name Patient Relationship to Insured Coverage Start Date Coverage End Date [employer] [address] [address] [place] [address] [phone] [id number] Raza Rodriguez Self - patient is the insured 6 Medications Administered Medication Instructions Date of Administration Dosage Notes DEPO-Medrol ri57Bxyjgaayyltvi, 4mg/mL li92Ljsewtz-194720 mg120 mgKenalog-400 qs787Mbdawwr-8742/25/2023120 cg680Evfzfyx-35 mgKenalog-401 uu160Rtydbpl-6542/ mgKenalog-40 tj417Qiqtted-3310/ mgKetorolac Dxilraipntpn61/24/202360 vs60Kaphqtluh Ztotlxvojddh48/01/26512005Yqtbqxgwy Dlitrwizvlhl33/12/202360 mg60 Ketorolac Hvxycvgmfnjv21/24/202360 dc78Wztavykth Taxvgbxjozjs81/23/202360 mg60 Ketorolac Vagtlxvgfwnm13/25/809262 op95Nfrpuvvuj Falteibsdwxg62/22/261778 mg Ketorolac Qkekxqgdfkfr66/13/002903 qq69Syvdteqpj Jqfbyqxqcoao37/14/211866 mg Ketorolac Rvpukcsncbai19/29/168102 wg22Ohkzbouog Ikvymmzzjuew02/15/401254 mg Ketorolac Vzlqdgtzjrhv93/07/032238 mgKetorolac Rfbpyttitxtc68/09/855454 mg Ketorolac Vgtwoygeswsq05/09/202560 mgKetorolac Srxzybhzbwij32/07/511067 mg Ketorolac Gbkwtnmaouuc57/21/202560 mgKetorolac Smehukqrjjdb53/31/202560 mg Ketorolac Leszvyybwrtu66/29/202560 mgKetorolac Pgwnfuppsyuv96/08/423883 mg Orphenadrine Bzdvotx07 tv12Fzutncihqgto Qqzoftd18 mg60 Orphenadrine Pamgtou58 fe62Mpvpnfrhxywp Nvtrpyt12 mg60 Orphenadrine Vtkimwc03 ud19Cbhqkcgawrgz Xfaxmwh36 mg60 Orphenadrine Zmdprae91 mgOrphenadrine Uujjjjj38 mg60 Orphenadrine Euyphme20 mgOrphenadrine Afblomy01/29/884654 mg60 Orphenadrine Vwtqath62/15/523977 mgOrphenadrine Lfgtltc74/07/200903 mg Orphenadrine Cuegjce82 mgOrphenadrine Tfmbzsa01/07/583733 mg Orphenadrine Fiknumi73/21/109277 mgOrphenadrine Pbgjdax25/31/035191 mg Orphenadrine Cudnroz29/29/166968 mgOrphenadrine Ajnrebc170 mg Medical (General) History Medical History History ICD Code Back pain M54.9 Cervical radiculopathy M54.12 COVID-19 U07.1 Diverticulosis K57.90 Hypertension I10 Hypoglycemia E16.2 Lumbar disc disease M51.9 Lumbar radiculopathy M54.16 Pure hypercholesterolemia E78.00 Shoulder impingement syndrome M75.40 Other specified cardiac arrhythmias I49. 8 Ventricular tachycardia I47.20 PVC (premature ventricular contraction) I49.3 Varicose veins I86.8 LVH and atrial enlargement Surgical History Surgery Date(Month/Year) laminectomy, lumbar hernia repair05/02Colonoscopy Dr HoweLaminoplasty Cervical Spine06/01 Colonoscopy- Dr. Snell11/26/2023Lumbar Fusion L2-L508/19/2023exc Bx lesion nasal bridge11/2016Hospitalization History Reason Date(Month/Year) see above
--- OUTSIDE RECORDS SUMMARY | 2025-02-28 12:42 | XMS_ITS | Encounter Summary ---
Author Organization [facility] Address [address] [place] [address] Care Team Providers Care Band Straightener Name Role Phone Devon Craven MD Primary Care Provider [phone] Encounter Details DateTypeDepartmentCare Team (Latest Contact Info)Vwtbhbdqnrr22/01/2025Telephone [facility] [address] [place] [address] Tania Colon MA Social History Tobacco UseTypesPacks/DayYears UsedDateSmoking Tobacco: NeverSmokeless Tobacco: NeverAlcohol UseStandard Drinks/WeekCommentsNot Currently0 (1 standard drink = 0.6 oz pure alcohol)Sex and Gender InformationValueDate RecordedSex Assigned at KqdvfPrer52/13/2025 2:00 PM EDTLegal JexJtec4509/05/2021 11:07 PM EDTGender DxkzzzjvGtwi82/13/2025 2:00 PM EDTSexual OrientationHeterosexual or Straight 12/20/2024 2:00 PM EDTdocumented as of this encounter Miscellaneous Notes * Telephone Encounter - Jazmín Kohli MA - 02/18/2025 2:39 PM EST Spoke with patient and he is agreeable to restart irbesartan in place of hydrochlorothiazide. I advised him I would add hydrochlorothiazide to his list of allergies so we know how to give it to him again. RX sent to [facility]. Patient verbalized understanding. * Telephone Encounter - Jazmín Kohli MA - 02/14/2025 9:30 AM EST Patient called stating he was unable to tolerate full tablet of hydrochlorothiazide. Says his BP was better with it, but it gave him digestive issues. Says the whole tablet gave him upper abdominal pain and loose bowels but not diarrhea . He was able to tolerate half tablet. I asked him to resume h gloria tablet for now, but he doesn't want to until the digestive issues return to baseline. Patient states even then I'll maybe take quarter tablet . I told him you would most likely want to try something else. Please advise. documented in this encounter Plan of Treatment Not on file documented as of this encounter Visit Diagnoses Diagnosis Primary hypertension Unspecified essential hypertension documented in this encounter Care Teams Team MemberRelationshipSpecialtyStart DateEnd Devon Craven MD [address] [facility] [place] [address] PCP - Epzkafi94/12/25documented as of this encounter
== END 2025-02-28 12:40 | disposition home or self-care (01) ==
LOC: CT 12:39
PROVIDERS: PCP Family Medicine; Visit Provider Family Medicine
DX: M54.12 Radiculopathy, cervical region (principal); M50.30 Other cervical disc degeneration, unspecified cervical region
CPT/HCPCS: 72125; 76376

== ENCOUNTER 2025-03-04 10:53 | Outpatient (RCR) | payer OTHER, SELFPAY | END 2025-03-09 10:43 | disposition home or self-care (01) | LOC: PT 10:53 | PROVIDERS: PCP Family Medicine; Visit Provider Family Medicine | DX: M54.12 Radiculopathy, cervical region (principal) | CPT/HCPCS: 97110; 97140; 97161 ==

== ENCOUNTER 2025-03-08 06:39 | Outpatient (OUT) | payer OTHER, SELFPAY ==
--- OUTSIDE RECORDS SUMMARY | 2023-04-30 07:20 | XMS_ITS | Continuity of Care Document ---
Author Organization [facility] o Address [address] [place] [address] Phone Care Team Providers Care Animal Cop Name Role Phone Tobi Angeles MD Unavailable Unavailable Allergies, Adverse Reactions, Alerts Substance Reaction Status Criticality PENICILLIN Active No Information Medications Medication Instructions Dosage Effective Dates (start - stop) Status Comments tizanidine 4 mg tablet TAKE 2 TABLETS BY MOUTH ONCE DAILY AT BEDTIME - Active carvedilol 12.5 mg tablet TAKE 1 TABLET BY MOUTH TWICE A DAY WITH FOOD - Active ADVIL 400 MG BUCCAL - Active Procedures Procedure Date Office/outpatient visit,[facility] 2023 X-ray exam lower spine 2-3 views 2023 Advance Directives Directive Yes / No Effective Date File Name No Information Encounters Encounter Description Practice Location Reason(s) For Visit Diagnoses Date Provider Providers [facility] on [facility] [address] [place], [place], [facility], tel:[phone] No Information 4 Bridgette Britton. [address], [place], [place], [id number] , [place]. tel:[phone] Referring Provider: Tobi Musa, [address], [place], [address] . tel:[phone] Office/outpat ient visit,[facility], [facility] [place], [address], [place] tel:[phone] [facility] Radiculopath y, lumbar region 4 Bridgette Britton. [address], [place], [place], [id number] , [place]. tel:[phone] Referring Provider: Tobi Musa, [address], [place], [address] . tel:[phone] [facility], [address], [place], [address], [place] tel:[phone] POSI Alejandra No Information 4 Birdgette Britton. [address], [place], [place], [id number] , [place]. tel:[phone] Family History Family Member Type Diagnosis Age At Onset No Information Payers Payer name Insurance type Covered green party ID Marcin greer(s) UMR - [id number] Social History Type Description Quantity Date Captured Comments Sex Male Smoking Status No Information Chief Complaint And Reason For Visit No Information Reason For Referral Reason For Referral No Information Plan Of Treatment Date Type Action Status Referral Ordered: Left foot AFO, Ankle foot orthosis (related to Left foot drop) ordered History Of Present Illness Encounter Date Complaint History Of Prese nt Illness LUMBAR PT HERE FOR LUMB AR SPINE AND LT LEG PAIN. HE STATES HE HAS OCCASIONAL LOW BACK PAIN BUT CONSTANT LT LEG PAIN. REPORTS 3 PRIOR SURGERIES, MOST RECENT IN [address] BHAGAT, HE THINKS LAMINECTOMY BUT UNSURE EXACT PROCEDURE. REPORTS NO RT LEG NUMBNES PRIOR TO SX AND HAS RT LEG NUMBNESS SINCE. HIS MAIN COMPLAINT TODAY IS HIS LT LEG. HE C/O WEAKNESS AND LT LEG FEELING . HE IS UNABLE TO FLEX HIS LT FOOT. HE HAS HAD RECENT MRI WHICH PT BROUGHT AND UPLOADED TO OUR PACS. NO XRAYS - NEW XRAYS DONE TODAY. CURRENTLY UTILIZING ADVIL DAILY WITHOUT MUCH RELIEF. STATES LAYING DOWN IS THE WORST FOR HIM AND HE HAS DIFFICULTY SLEEPING AT NIGHT. Functional Status Date Functional Assessmen t No Information Instructions Date Instruction Additional Infor mation No Information Assessments Type Assessment Date No Information Patient Care Teams Name Effective Dates (start - stop) Status Members No Information
--- OUTSIDE RECORDS SUMMARY | 2025-02-28 08:44 | XMS_ITS ---
Author Organization [facility] in [place] Address [address] [place] [address] Care Team Providers Care Electrotyper Apprentice Name Role Phone Micheal Craven Primary Care Provider Reason For Referral Diagnosis 1 Radiculopathy, cervi miranda region (M54.12) Referral Organization [facility] Referring Provider First Name Micheal Referring Provider Last Name Merissa Referring Provider Speciality Family Med icine Referred Provider [facility], Physical Therap y Referred Provider Specialty Physical The rapist Referral Priority Routine REASON FOR VISIT CT results Encounters Encounter Location Date Provider Diagnosis [facility] [address] [place] [address] 02/28/2025 Micheal Merissa Radiculopathy, cervical region M54.12 Assessments Encounter Date Diagnosis (ICD Code) Assessment Notes Treatment Notes Treatment Clinical Notes Section Notes 02/28/2025 Radiculopathy, cervical region ( ICD-10 - M54.12) Plan Of Treatment Referrals Referral Date Details 02/28/2025 02/28/2025, Physical Therapy [facility] Progress Notes * Raza RODRIGUEZ LDOB: [birth year] (69 yo M)Acc No.[id number]:02/28/2025 Patient:?Raza RODRIGUEZ :1955???Age:69 Y???Sex:MalePhone:[phone] Address:[address] [place] [address], [address] Subjective: * Chief Complaints: * C T results * Medical History: * Surgical History: * Hospitalization/Major Diagno stic Procedure: * Medications: Objective: * Vitals: * Physical Examination: ??? Assessment: * Assessment: 1.?Radiculopathy, cervical region - M54.12 (Primary)??? Plan: * Treatment: ? Referral To:Physical Therapy TB??Physical Therapist ?Reason: * Procedure Codes: * true * Date:?Generated for Printing/Faxing/eTransmitting on:?03/08/2025 06:44 AM EST Consultation Request Notes Referral Date Referring Provider Referred Provider Not es 02/28/2025 Micheal Craven TB, Physical Therapy
--- OUTSIDE RECORDS SUMMARY | 2025-03-04 09:15 | XMS_ITS ---
Author Organization [facility] [place] Address [address] [place] [address] Care Team Providers Care Vice President Medical Affairs Name Role Phone Micheal Craven Primary Care Provider Allergies Allergen (clinical drug ingredient) Drug/Non Drug Allergy documented on EMR Reaction Allergy Type Onset Date Status methocarbamol Robaxin Unknown Drug Allergy ActivePenicillinhivesDrug AllergyActive REASON FOR VISIT Go over CT scan, Wants to know if needs another sugar test- has neuropathy, wants to make sure not from diabetes, Discuss BP meds- Cardio put him on a diuretic, Wants to know if needs to have kidney testing due to water pills, Bones feel like they grind when he is walking Medications Medication SIG (Take, Route, Frequency, Duration) Notes Start Date End Date Status Coreg 25 MG 1 tablet with food Orally Twice a day; Duration: 30 days 5ActiveFerrous Sulfate 325 (65 Fe) MG1 tablet Orally bid; Duration: 30 days5ActiveoxyCODONE HCl 5 MG1 tablets Orally every 4 hours; Duration: 14 days5ActiveIrbesartan 150 MG1 tablet Orally Once a day; Duration: 30 day(s)5ActiveMagnesium 400 MG1 tablet Orally once dailyActivetiZANidine HCl 4 MGTAKE 2 TABLETS BY MOUTH ONCE DAILY AT BEDTIME; Duration: 90Active Triamcinolone Acetonide 0.1 %1 application Externally bid5Active hydroCHLOROthiazide 25 MG1/2 tablet Orally Once a day5ActiveValium 10 MG 1 tablet as needed Orally once about 1 hour before procedure; Duration: 1 days F41.9 5ActiveTamsulosin HCl 0.4 MG1 capsule Orally Once a day; Duration: 30 day(s)5ActivePotassium Chloride ER 10 MEQ1 tablet with food Orally Twice a day; Duration: 30 day(s)5ActiveTadalafil 5 MGTAKE 1 TABLET BY MOUTH DAILY; Duration: 30Active Social History Tobacco Use: Social History Observation Description Date Details (start date - stop date) Never Smoker NA - NA Tobacco Use/Smoking Question Answer Notes Patient is a nonsmoker Problems Problem Type SNOMED Code ICD Code Onset Dates Problem Status W/U Status Risk Notes Problem Hypertension (77343131) Hypertension (I10 ) Activeconfirmed Vital Signs Blood pressure systolic 138 mm Hg 03/04/20 25 Blood pressure diastolic 84 mm Hg 025 Height 72 in 03/04/2025 Weight 211.8 lbs 03/04/2025 BMI 28.72 kg/m2 03/04/2025 Encounters Encounter Location Date Provider [facility] [address] [place] [address] 03/04/2025 Micheal Craven Hypertension I10 and BPH (benign prostatic hyperplasia) N40.0 Assessments Encounter Date Diagnosis (ICD Code) Assessment Notes Treatment Notes Treatment Clinical Notes Section Notes 03/04/2025 Hypertension (ICD-10 - I10) 5BPH (benign prostatic hyperplasia) (ICD-10 - N40.0) Plan Of Treatment Medication Medication Name Sig Start Date Stop Date Notes Tamsulosin HCl 0.4 MG 1 capsule Orally Once a da y; Duration: 30 day(s) 03/04/2025 Pending Test Test Name Order Date GLYCOHEMOGLOBIN A1C 03/04/2025 PROF 14(COMP METB) 03/04/2025 Progress Notes * Raza RODRIGUEZ LDOB: [birth year] (69 yo M)Acc No.[id number]:03/04/2025 UNLOCKED PROGRESS NOTE Progress Note Patient: Raza HUITRON :?Devon Craven ([facility]), MDDOB:1955???Age: 69 Y???Sex:MaleDate:03/04/2025Phone:[phone]:[address] [facility], [id number] In:02:04 PM ESTCheck Out:02:51 PM EST Subjective: * Chief Complaints: * [address] scan[address] 2. Wants to know if needs another sugar test- has neuropathy, wants to make sure not from diabetes. 3. Discuss BP meds- Cardio put him on a diuretic. 4. Wants to know if needs to have kidney testing due to water pills. 5. Bones feel like they grind when he is walking. * HPI: ???Interim History:? Patient presents for high blood pressure check. Doing well on medication. Denies chest pain, palpitations, lightheadedness, or vision changes. * ROS: ???General/Constitutional:?Lightheadedness?denies.?Fever?denies.?Headache?denies.?Cardiovascular:?Chest pain?denies.?Palpitations?denies.?Respiratory:?Cough?denies.?Shortness of breath?denies.? * Medical History: B ack pain, Cervical radiculopathy, COVID-19, Diverticulosis, Hypertension, Hypoglycemia, Lumbar disc disease, Lumbar radiculopathy, Pure hypercholesterolemia, Shoulder impingement syndrome, Other specified cardiac arrhythmias, Ventricular tachycardia, PVC (premature ventricular contraction), Varicose veins, LVH and atrial enlargement. * Surgical History: h ernia repair 05/02, laminectomy, lumbar , exc Bx lesion nasal bridge 11/2016, Lumbar Fusion L2-L5 08/19/2023, Colonoscopy- Dr. Snell 11/26/2023, Laminoplasty Cervical Spine 06/01, Colonoscopy Dr Snell 01/05/2025. * Hospitalization/Major Diagno stic Procedure: s ee above . * Family History: F ather: , Melanoma, diagnosed with Heart Disease. M other: , CVA. B rother(s): alive, one from Melanoma. 3 brother(s) . . * Social History: ???Tobacco Use:?Tobacco Use/Smoking?Patient is a?nonsmoker * Medications: T aking Coreg(Carvedilol) 25 MG Tablet 1 tablet with food Orally Twice a day , Taking Ferrous Sulfate 325 (65 Fe) MG Tablet 1 tablet Orally bid , Taking hydroCHLOROthiazide 25 MG Tablet 1/2 tablet Orally Once a day , Taking Irbesartan 150 MG Tablet 1 tablet Orally Once a day , Taking Magnesium 400 MG Tablet 1 tablet Orally once daily , Taking oxyCODONE HCl 5 MG Tablet 1 tablets Orally every 4 hours , Taking Potassium Chloride ER 10 MEQ Tablet Extended Release 1 tablet with food Orally Twice a day , Taking Tadalafil 5 MG Tablet TAKE 1 TABLET BY MOUTH DAILY , Taking tiZANidine HCl 4 MG Tablet TAKE 2 TABLETS BY MOUTH ONCE DAILY AT BEDTIME , Taking Triamcinolone Acetonide 0.1 % Cream 1 application Externally bid , Taking Valium(diazePAM) 10 MG Tablet 1 tablet as needed Orally once about 1 hour before procedure F41.9, Discontinued Terbinafine HCl 250 MG Tablet 1 tablet Orally Once a day , Medication List reviewed and reconciled with the patient * Allergies: P enicillin: hives - Allergy, Robaxin: Side Effects. Objective: * Vitals: W t:211.8lbs, Ht: 72 in, BP:138/84mm Hg, BMI:28.72Index, Ht-cm: 182.88 cm, Wt-k.07 kg. * Examination: ???General Examination: ?GENERAL APPEARANCE:? in no acute distress, well developed,well nourished.?LUNGS:? clear to auscultation bilaterally.?CARDIO:? regular rate and rhythm, S1, S2 normal, no murmurs.? Assessment: * Assessment: 1.?Hypertension - I10 (Primary)???2.?BPH (benign prostatic hyperplasia) - N 40.0??? Plan: * Treatment: ?LAB: GLYCOHEMOGLOBIN A1C ?LAB: PROF 14(COMP METB)2.?BPH (benign prostatic hyperplasia)? Start Tamsulosin HCl Capsule, 0.4 MG, 1 capsule, Orally, Once a day, 30 day(s), 30.?? * Preventive Medicine: ??Screenings/Counseling:?BMI ACTION PLAN?Above Normal BMI Follow-up?Dietary management education, guidance, and counseling * * Electronic signature of Micheal Craven MD, [phone] on 03/08/2025 at 06:44 AM EST Sign off status: PendingVisit Status:?CHK (Check Out) * Provider: Mary Craven ([facility])MD Date: 05/05/2024 Generated for Printing/Faxing/eTransmitting on:?03/08/2025 06:44 AM EST History and Physical Notes * Examination CategorySub-CategoryDetailNotesCategory NotesGeneral ExaminationGENERAL APPEARANCE:in no acute distress, well developed, well nourishedCARDIO:regular rate and rhythm, S1, S2 normal, no murmursLUNGS:clear to auscultation bilaterally
--- OUTSIDE RECORDS SUMMARY | 2025-03-08 06:43 | XMS_ITS | CCD ---
Author Organization [facility] Care Team Providers Care Director Of Cardiology Service Line Name Role Phone ESTER CAIN Referring Unavailable ESTER CAIN Primary Care Unavailable DOMENIC KOHLER Attending Unavailable DOMENIC KOHLER Admitting Unavailable Ester Cain Primary Care Physician [phone] Dr. Ester Cain Primary Care Unavail able [...] DR NORMAN Admitting Unavailable HOY ., DR NOMRAN Primary Care Unavailable HOY ., DR NORMAN [...] Unavailable MD Ester Cain Primary Care Provider [phone] MD Shae Guillory Attending Provider Ester Cain MD Primary Care Provider [phone] Ester Cain MD M Primary Care Provider [phone] PELLE, KATHERINE Referring Unavailable HOY, ESTER M Primary Care Unavailable PELLE, KATHERINE Referring Unavailable HOY, ESTER M Primary Care Unavailable BONUS, ALFONSO M Referring Unavailable HOY, ESTER M Primary Care Unavailable Katherine Sagar JERNIGAN Md Unavailable Unavailable MD Ester Cain M Primary Care Provider [phone] MD Camryn Agustin Attending Provider PELLE, KATHERINE [...] Unavailable Ester Cain MD Primary Care Provider [phone] Ester Cain MD Primary Care Provider [phone] Mahamed Gray DPM Attending Provider [phone] Camryn Agustin Attending Unavailable MerissaEster M Primary Care Unavailable Camryn Agustin Admitting Unavailable MerlinEster poole M Primary Care Unavailable Mahamed Gray. Admitting Unavailable Mahamed Gray Attending Unavailable Citlali Purcell Attending Provider TELLO HORNER Attending Unavailable Camryn AGUSTIN Attending Unavailable Camryn AGUSTIN Attending Unavailable Ester Cain MD Primary Care Provider [phone] MAHAMED GRAY Attending Unavailable MAHAMED GRAY Attending Unavailable MAHAMED GRAY Attending Unavailable Allergies Allergy ClassificationReported Allergen(s)Allergy TypeDate of OnsetReaction(s) FacilityPenicillins (antibiotic) (4 sources)PenicillinsDrug Hmfnvym13-01-3259[facility]Cl[facility] (10 sources)Penicillin; Translations: [penicillin]Drug AllergyEruption of skin (disorder)[facility] (14 sources)Penicillins; Translations: [PENICILLINS]Drug allergy (disorder) 57-00-1676[facility]lDgnOhio[facility] (20 sources)PenicillinsPropensity to adverse xaxrayzup91-45-8300RoxnDouwpjdwp Clinic (20 sources)Methocarbamol; Translations: [methocarbamol]Drug Yxqvmuh95-14-5758 Patient reported problems (finding), [facility] [place] (15 sources)PenicillinsPropensity to adverse -[phone] Clinic (1 source)Unable to AssessDrug allergy (disorder)18-76-5995MwacwfotaGood Samaritan Hospital Rep[facility] (6 sources)MethocarbamolDrug Ifsnpwr74-00-7635MQWW [facility] (6 sources)PenicillinsPropensity to adverse xbwsxaerx14-80-0853LzstgQTYM Healthcare (1 source)amLODIPine; Translations: [AMLODIPINE]Drug Jxqjluh31-76-8963VszyaaxeyqGreen [facility] Rep[facility] (1 source)No Known Medication Allergies; Translations: [No Known Medication Allergies]Propensity to adverse reactions (disorder)[facility] Medications Current Medications MedicationDrug Class(es)DatesSig (Normalized)Sig (Original)acetaminophen 325 mg oral tablet (20 sources)Start: 54-30-6341jaci 2 tablets enteral route every six hours as neededacetaminophen (TYLENOL) 325 mg tablet 2 tablets by ORAL/FEEDING TUBE route every 6 hours as needed for pain. 10/04/2023 ActiveStart: 54-17-2996wmeb 2 tablets by mouth every four hoursacetaminophen (TYLENOL) 325 mg tablet 2 tablets by ORAL/FEEDING TUBE route every 4 hours. 0 08/22/2023 ActiveamLODIPine 5 mg oral tablet (1 source)Dihydropyridine Calcium Channel BlockerStart: 75-48-4236cgbc 1 tablet by mouth once dailyamLODIPine 5 mg Tab 5 mg = 1 tab(s), Oral, Daily, Refills(s) 0 Start Date: 11/15/24 Status: Ordered Repeat number: 1aspirin 81 mg delayed release oral tablet (15 sources)Platelet Aggregation Inhibitor, Nonsteroidal Anti-inflammatory Drug Start: 70-60-5732mykv 1 tablet by mouth once dailyaspirin, enteric [...] administerwith a meal/food Complies with drug therapyStart: 86-04-8697zges 1 tablet by mouth once dailycarvedilol 25 mg Tab 25 mg = 1 tab(s), Oral, Daily, Refills(s) 0 Start Date: 11/11/23 Status: OrderedRepeat number: 1Start: 10-04-2023 End: 95-35-8411vzvc 1 tablet by mouth twice daily at mealtimecarvedilol (COREG) 25 mg tablet Take 1 tablet by mouth two times a day with meals. 60 tablet 10/04/2023 ActiveStart: 05-89-3545pevl 1 tablet by mouth twice daily at mealtime carvedilol (COREG) 12.5 mg tablet Take 12.5 mg by mouth two times a day with meals. 0 03/11/2023 ActiveStart: 20-08-3356rxie 1 tablet by mouth twice daily carvedilol 6.25 mg Tab 6.25 mg = 1 tab(s), Oral, BID, Refills(s) 0 Start Date: 09/11/22 Status: OrderedStart: 94-05-5130jovg 1 tablet by mouth twice daily carvedilol 25 mg Tab 25 mg = 1 tab(s), Oral, BID, Refills(s) 0, High blood pressure Start Date: 04/03/22 Status: OrderedComment on above:Take 12.5 mg by mouth two times a day with meals.Celebrate Multivitamin (5 sources)Start: 06-18-5219qxkq 1 tablet by mouth once dailyCelebrate Multivitamin 1 tab(s), Oral, Daily, Prophylaxis Start Date: 04/22/22 Status: Orderedcyclobenzaprine hydrochloride 10 mg oral tablet (2 sources)Muscle RelaxantStart: 20-82-5629ktpu 1 tablet by mouth three times daily as needed for muscle spasmscyclobenzaprine 10 mg Tab 10 mg = 1 tab(s), Oral, TID, PRN for spasm, Refills(s) 0 Start Date: 10/23/23 Status: Ordered diclofenac sodium 0.03 mg/mg topical gel (20 sources)Nonsteroidal Anti-inflammatory DrugStart: 98-76-3732eggbhvluhx topical 3% topical gel 1 judy, Topical, BID, Refill(s) 0 Start Date: 11/15/24 Status: Ordered Repeat number: 1Start: 09-12-2023 End: 04-38-8111gwwdszjibc (VOLTAREN ARTHRITIS PAIN) 1 % topical gel Apply 2 g to affected area two times a day. 120 g 1 09/12/2023 11/11/2023 Activedocusate sodium 50 mg / sennosides, retirement 8.6 mg oral tablet (20 sources)Start: 06-94-1332liam 2 tablets by mouth every twelve hours as neededsenna-docusate (SENNA-S) 8.6-50 mg per tablet Take 2 tablets by mouth two times a day as needed forconstipation. 20 tablet 06/08/2024 ActiveStart: 78-55-6658pech 2 tablets by mouth twice dailysenna-docusate (SENNA-S) [...] chew, or split. ActiveFish Oils (3 sources)Start: 32-54-1584rbmf 1 capsule by mouth once dailyFish Oil 1 cap, Oral, Daily, Prophylaxis Start Date: 04/22/22 Status: Orderedfurosemide 40 mg oral tablet (20 sources)Loop Diuretictake 1 tablet by mouth once dailyfurosemide (LASIX) 40 mg tablet Take 40 mg by mouth once daily. Activegabapentin 300 mg oral capsule (20 sources)Anti-epileptic AgentStart: 09-10-2023 End: 09-50-0832srks 1 capsule by mouth every eight hoursgabapentin (NEURONTIN) 300 mg capsule Take 1 capsule by mouth every 8 hours for 30 days. 90 capsule 10/09/2023 Activeisoniazid 300 mg oral tablet (1 source)AntimycobacterialStart: 19-38-7946lelp 1 tablet by mouth once daily isoniazid 300 mg Tab 300 mg = 1 tab(s), Oral, Daily, Refills(s) 0 Start Date: 09/26/20 Status: Orderedlidocaine 0.05 mg/mg medicated patch (20 sources)Antiarrhythmic, Amide Local AnestheticStart: 60-49-7381fegjjhdxv Top 5% film Patch 1 patch(es), Topical, Daily, Refill(s) 0 Start Date: 11/15/24 Status: Ordered Repeat number: 1Start: 09-12-2023 End: 02-72-7916oqozbovvi (LIDODERM) 5 % Take as instructed on package 10 Patch 1 10/09/2023 Activelisinopril 20 mg oral tablet (18 sources)Angiotensin Converting Enzyme InhibitorStart: 19-83-4286oepi 1 tablet by mouth once dailylisinopril 20 mg Tab 20 mg = 1 tab(s), Oral, Daily, Refills(s) 0 Start Date: 04/03/22 Status: OrderedStart: 07-04-2006 End: 85-67-7226nime 1 tablet by mouth once dailylisinopril 10 mg ORAL Tab Take one(1) tablet daily. 0 07/04/2006 08/06/2023 Discontinued (Discontinued by Patient)Comment on above:Take one(1) tablet daily.Magnesium (6 sources)take 1 tablet by mouth once dailyMagnesium 400 MG capsule Take 1 tablet by mouth Daily Activemagnesium oxide 500 mg oral capsule (12 sources)Start: 98-83-6097xsmm 1 capsule by mouth twice dailyMagnesium Oxide 500 mg cap Take 1 capsule by mouth two times a day. 0 08/06/2023 ActiveStart: 78-67-9469qocy 1 tablet by mouth once dailymagnesium oxide 400 mg Tab 400 mg = 1 tab(s), Oral, Daily, Refills(s) 0, Prophylaxis Start Date: 09/26/20 Status: Ordered Repeat number: 1methylPREDNISolone (1 source)CorticosteroidStart: 11-13-2023 End: 66-46-9029yetzqdHRBVBNIfrodf (MEDROL, NIKHIL,) 4 mg Dose-Pack As instructed per package 21 tablet 11/13/2023 11/19/2023 Activemupirocin 0.02 mg/mg topical ointment (3 sources)RNA Synthetase Inhibitor AntibacterialStart: 08-06-2023 End: 90-43-4352amfxgzlew (BACTROBAN) 2 % ointment two times a day for 5 days. Apply 0.5 inch with cotton swab (Q-tip) to each nostril in the morning and evening for 5 days prior to and including day of surgery. 22 g 0 08/06/2023 08/11/2023 Activenaloxone 4 mg/actuation nasal spray (NARCAN) (15 sources)Start: 05-15-8824psrlkyxb 4 mg/actuation nasal spray (NARCAN) Indications: Acute postoperative pain , S/P cervical spinal fusion , Cervical spondylosis with myelopathy Use 1 spray in one nostril as needed for overdose. May repeat every 2 to 3 min in alternating nostrils until medical assistance is available 2 Each 06/08/2024 ActiveoxyCODONE hydrochloride 5 mg oral tablet (20 sources)Opioid AgonistStart: 24-32-1434xydZBGBUZ 5 mg Tab as directed, Refills(s) 0 Start Date: 11/15/24 Status: Ordered Repeat number: 1Start: 04-97-1031Hnyfrmjvs 5 mg tablet Active MG PO October 06, 2024 12:00am Complies with drug therapyStart: 06-21-2024 End: 16-90-9292jsqh 1 tablet by mouth every six hours as needed for pain oxyCODONE IR (ROXICODONE) 5 mg immediate release tablet Indications: Post-op pain Take 1 tablet by mouth every 6 hours as needed for pain for up to 7 days. 28 tablet 06/28/2024 07/05/2024 ActiveStart: 06-15-2024 End: 30-69-8816nxhq 1 tablet by mouth every four hoursoxyCODONE IR (ROXICODONE) 5 mg immediate release tablet Indications: Post-op pain Take 1 tablet by mouth every 4 hours for 7 days. 42 tablet 06/15/2024 06/21/2024 DiscontinuedStart: 06-08-2024 End: 17-53-8949bpii 1 tablet by mouth every four hours as neededoxyCODONE IR (ROXICODONE) 5 mg immediate release tablet Indications: Acute postoperative pain , S/Pcervical spinal fusion , Cervical spondylosis with myelopathy Take 1-2 tablets by mouth every 4 hours as needed for pain (Moderate to severe postop pain) for up to 5 days. 60 tablet 06/08/2024 2:54 PM EDT 06/08/2024 06/13/2024 ActiveStart: 10-15-2023 End: 51-73-6313oric 1 tablet by mouth every six hours as needed for pain oxyCODONE IR (ROXICODONE) 5 mg immediate release tablet Indications: Post-op pain Take 1 tablet by mouth every 6 hours as needed for pain for up to 7 days. 28 tablet 0 10/15/2023 10/22/2023 ActiveStart: 10-09-2023 End: 56-34-8411jjpp 1 tablet by mouth every four hoursoxyCODONE IR (ROXICODONE) 5 mg immediate release tablet Indications: Post-op pain Take 1 tablet by mouth every 4 hours for 7 days. 42 tablet 0 10/09/2023 10/15/2023 DiscontinuedStart: 10-04-2023 End: 04-02-0170lgkc 1 tablet by mouth every six hours as neededoxyCODONE IR (ROXICODONE) 5 mg immediate release tablet Indications: Acute post-operative pain Take1-2 tablets by mouth every 6 hours as needed for up to 7 days. 28 tablet 0 10/04/2023 10/11/2023 ActiveStart: 09-28-2023 End: 59-98-1650lbdy 1 tablet by mouth every four hours as needed for pain oxyCODONE IR (ROXICODONE) 10 mg tab Indications: S/P lumbar fusion Take 1 tablet by mouth every 4 hours as needed for pain for up to 7 days. Do not start before September 28, 2023. 42 tablet 0 09/28/2023 10/05/2023 ActiveStart: 09-15-2023 End: 51-35-5992vufw 1 tablet by mouth every four hours as needed for pain oxyCODONE IR (ROXICODONE) 10 mg tab Indications: S/P lumbar fusion Take 1 tablet by mouth every 4 hours as needed for pain for up to 7 days. 42 tablet 0 09/19/2023 09/21/2023 DiscontinuedStart: 09-10-2023 End: 05-08-1971uscg 1 tablet by mouth every six hours as neededoxyCODONE IR (ROXICODONE) 10 mg tab Indications: Spondylosis of lumbar region without myelopathy orradiculopathy Take 1 tablet by mouth every 6 hours as needed for up to 7 days. 28 tablet 0 09/10/2023 09/15/2023 Discontinued (Course of therapy completed)Start: 09-04-2023 End: 98-80-6257jbxg 1 tablet by mouth every six hours as needed for pain oxyCODONE IR (ROXICODONE) 5 mg immediate release tablet Indications: Acute post- operative pain Take1 tablet by mouth every 6 hours as needed for pain for up to 7 days. Do not start before September 04, 2023. 28 tablet 0 09/04/2023 09/11/2023 SuspendedStart: 08-29-2023 End: 47-44-5040zded 1 tablet by mouth every four hoursoxyCODONE IR (ROXICODONE) 5 mg immediate release tablet Indications: Acute post-operative pain Take1 tablet by mouth every 4 hours for 7 days. 42 tablet 0 08/29/2023 09/02/2023 DiscontinuedStart: 08-22-2023 End: 56-48-3910zwqs 1 tablet by mouth every six hours [...] mg oral capsule (20 sources)Start: 06-08-2024 End: 05-21-8326yesl 2 capsules by mouth three times dailypregabalin (LYRICA) 50 mg capsule Indications: Adverse effect of treatment, sequela Take 2 capsulesby mouth three times a day for 90 days. 180 capsule 2 06/08/2024 09/06/2024 Active Start: 10-23-2023 End: 98-65-4632cmdo 1 capsule by mouth twice dailypregabalin (LYRICA) 50 mg capsule Indications: Adverse effect of treatment, sequela Take 1 capsule by mouth two times a day for 90 days. 60 capsule 2 11/12/2023 Suspendedsildenafil 100 mg oral tablet (2 sources)Phosphodiesterase 5 InhibitorStart: 49-14-6200nsvp 1 tablet by mouth once daily as neededsildenafil 100 mg Tab 100 mg = 1 tab(s), Oral, Daily, PRN as needed, Refills(s) 0 Start Date: 09/11/22 Status: Orderedtadalafil 5 mg oral tablet (7 sources)Phosphodiesterase 5 InhibitorStart: 39-15-7159xkcl 1 tablet by mouth once daily as neededtadalafil 5 mg oral tablet 5 mg = 1 tab(s), Oral, Daily, PRN erectile dysfunction, Refills(s) 0 Start Date: 11/15/24 Status: Ordered Repeat number: 1tiZANidine 4 mg oral tablet (20 sources)Central alpha-2 Adrenergic AgonistStart: 85-23-7047Yhhbxjkznj 4 mg tablet Active MG PO October 06, 2024 12:00am Complies with drug therapyStart: 06-08-2024 End: 83-72-0101qtez 1 tablet by mouth every eight hours as neededtiZANidine (ZANAFLEX) 2 mg tablet Indications: Acute postoperative pain , S/P cervical spinal fusion , Cervical spondylosis with myelopathy Take 3 tablets by mouth every 8 hours as needed for up to 7days. 20 tablet 06/08/2024 2:54 PM EDT 06/08/2024 06/15/2024 ActiveStart: 93-85-7142rsrc 1 tablet by mouth every eight hours in the eveningtiZANidine (ZANAFLEX) 2 mg tablet Take 3 tablets by mouth every 8 hours. 90 tablet 09/10/2023 3:56 PM EDT 09/10/2023 SuspendedStart: 69-27-2306qqcn 2 tablets by mouth at bedtimetiZANidine 4 mg Tab 8 mg = 2 tab(s), Oral, Bedtime, Refills(s) 0, Insomnia Start Date: 04/03/22 Status: Ordered Repeat number: 1tiZANidine (Zanaflex) 4 MG capsule Take 8 mg by mouth at bedtime Active Comment on above:Take 2 tablets by mouth daily at bedtime.turmeric extract 500 mg oral capsule (5 sources)Start: 25-30-1506ltgj 1 capsule by mouth once dailyturmeric 500 mg oral capsule 500 mg = 1 cap(s), Oral, Daily, Prophylaxis Start Date: 04/22/22 Status: Ordered Completed/Discontinued Medications MedicationDrug Class(es)DatesSig (Normalized)Sig (Original)acetaminophen 325 mg / HYDROcodone bitartrate 5 mg oral tablet (18 sources)Opioid AgonistStart: 11-12-2023 End: 11-26-8371ovml 1 tablet by mouth every six hours as needed for pain HYDROcodone-acetaminophen (NORCO) 5-325 mg per tablet Indications: Adverse effect of treatment, sequela Take 1 tablet by mouth every 6 hours as needed for pain for up to 7 days. 28 tablet 11/12/2023 11/19/2023 ExpiredStart: 11-05-2023 End: 86-81-7671finv 1 tablet by mouth twice dailyHYDROcodone-acetaminophen (NORCO) 5-325 mg per tablet Indications: Post-op pain Take 1 tablet by mouth two times a day for 7 days. 14 tablet 11/05/2023 11/12/2023 ExpiredStart: 10-23-2023 End: 64-95-0113dyqw 1 tablet by mouth every eight hours as needed for pain HYDROcodone-acetaminophen (NORCO) 5-325 mg per tablet Indications: Post-op pain Take 1 tablet by mouth every 8 hours as needed for pain for up to 7 days. 21 tablet 10/30/2023 11/05/2023 DiscontinuedStart: 14-21-2492vurw 1 tablet by mouth every eight hours as needed for painacetaminophen-hydrocodone 325 mg-5 mg oral tablet 1 tab(s), Oral, q8hr as needed for pain, Refill(s) 0 Start Date: 09/11/22 Status: OrderedStart: 68-24-0501fdyo 1 tablet by mouth every eight hours as needed for painacetaminophen-hydrocodone 300 mg-5 mg oral tablet 1 tab(s), Oral, q8hr as needed for pain, Refill(s) 0 Start Date: 09/26/20 Status: Ordered fluorouracil 50 mg/ml topical cream (17 sources)Nucleoside Metabolic InhibitorStart: 07-04-2006 End: 72-12-4979Uuljcqllqpno 5 % TOPICAL Crea bid 15 days R and L lat face to behind ears as discussed--wait 2 wk before starting 45gm 0 07/04/2006 08/06/2023 Discontinued (Discontinued by Patient)Comment on above:bid 15 days R and L lat face to behind ears as discussed--wait 2 wk before startingmethocarbamol 750 mg oral tablet (12 sources)Muscle RelaxantStart: 16-62-3098tfdw 1 tablet by mouth every six hoursmethocarbamol [...] Reductase Inhibitor Antibacterial, Sulfonamide AntimicrobialStart: 09-13-2024 End: 46-14-0232lnno 1 tablet by mouth every twelve hourssulfamethoxazole- trimethoprim (Bactrim DS) 800-160 MG per tablet Take 1 tablet by mouth every 12 (twelve) hours 09/13/2024 09/22/2024 Problems Active Problems Problem ClassificationProblemDateDocumented DateEpisodic/ChronicAbdominal hernia (19 sources)Hernia of anterior abdominal wall; Translations: [Ventral hernia without obstruction or gangrene]Onset: 71-74-8609OsvzgkiiTungcabje pain (14 sources)Epigastric pain; Translations: [Epigastric pain]Onset: 03-16-2022 EpisodicAcquired foot deformities (20 sources)Right foot drop; Translations: [Foot drop, right foot]Onset: 794169-38-0605ArvsddovBplgonl dysrhythmias (20 sources)Supraventricular tachycardia; Translations: [Ventricular premature beats]Onset: 378455-78-8704UfmijgkGpmjoee ulcer of skin (6 sources)Neuropathic ulcer; Translations: [Non-pressure chronic ulcer of skin of other sites limited to breakdown of skin]63-86-4811GtdjrwdSyrlobizqa and other anemia (2 sources)Iron deficiency anemia; Translations: [Iron deficiency anemia, unspecified]39-64-9731InhknuiqPxhcpokjhe and other anemia (2 sources)Iron deficiency anemia, unspecified; Translations: [Iron deficiency anemia, unspecified iron deficiency anemia type]Onset: 06-90-0581Erkrfpdp Disorders of lipid metabolism (9 sources)Pure hypercholesterolemia, unspecified; Translations: [Pure hypercholesterolemia]Onset: 95-45-6394LqudpehLhjmanvliyvymi and diverticulitis (14 sources)Diverticular disease; Translations: [Diverticula of intestine]Onset: 477188-69-4807FevwtckOydbggzkw hypertension (20 sources)Hypertensive disorder; Translations: [Essential hypertension]Onset: 536531-47-0558ZkrlthrVhufpsdgtsqvo symptoms and ill-defined conditions (5 sources)Blood in urine; Translations: [Gross hematuria]Onset: 12-05-2022 EpisodicHemorrhoids (9 sources)Internal xatucfcqxzl62-29-1445IgrqxpivWpodxqoniag of prostate (9 sources)Benign prostatic hypertrophy with outflow obstruction; Translations: [Benign prostatic hyperplasia with lower urinary tract symptoms]Onset: 88-10-2894HdvlyxtZekdosb and fatigue (1 source)Asthenia; Translations: [Weakness]50-86-1207VgtlyvkmXyhpptdfg of unspecified nature or uncertain behavior (20 sources)Neoplasm of uncertain behavior of skin; Translations: [Neoplasm of uncertain behavior of skin]Onset: 478270-90-5690PbimrlwpPbnlj acquired deformities (20 sources)Other secondary scoliosis, site unspecified; Translations: [Disorder of bone and cartilage, unspecified]Onset: 828476-86-4273CuldfguWzxhy acquired deformities (1 source)Spondylolysis; Translations: [Spondylolysis, lumbar region]06-29-2024 EpisodicOther acquired deformities (1 source)Spondylolysis, lumbar region; Translations: [Spondylolysis, lumbar region]Onset: 18-86-3128IjiywhouWrklc aftercare (1 source)Surgical follow-up; Translations: [Encounter for removal of sutures] 67-84-0234AraxmoquMcnzk and ill-defined heart disease (2 sources)Cardiomegaly; Translations: [Cardiomegaly]Onset: 95-01-7422Uxwqxsq Other and unspecified benign neoplasm (9 sources)Dermal cellular ohjwu16-58-6786VjmdcmueYzlfy and unspecified benign neoplasm (1 source)Benign neoplasm of colon; Translations: [Benign neoplasm of colon, unspecified]Onset: 98-94-7417WwwhoxvpVflmh and unspecified benign neoplasm (2 sources)Adenomatous polyp of -94-1189FctqhfemIwjmi and unspecified benign neoplasm (2 sources)History of polyp of colon; Translations: [Personal history of adenomatous and serrated colon polyps]Onset: 64-83-5225YbhdvdjbMdbya circulatory disease (6 sources)Absent pulse; Translations: [Other specified symptoms and signs involving the circulatory and respiratory systems]52-53-0372NyjeaqgxNonue connective tissue disease (20 sources)History of lumbar fusion; Translations: [Arthrodesis status]Onset: 717951-74-6234NysovxktZxxop connective tissue disease (17 sources)History of cervical spine fusion; Translations: [Arthrodesis status] Onset: 927985-28-0973LaykrqzrOehki connective tissue disease (3 sources)Arthrodesis status; Translations: [S/P cervical spinal fusion]Onset: 88-74-2538EfjosicvLachl diseases of kidney and ureters (1 source)Urinary tract obstruction; Translations: [Other obstructive and reflux uropathy]Onset: 18-73-9893KjaasceaQdiap nervous system disorders (1 source)Other chronic pain; Translations: [Chronic low back pain, unspecified back pain laterality, unspecified whether sciatica present]Onset: 05-04-2023 ChronicOther nervous system disorders (1 source)Lumbosacral plexus neuropathy; Translations: [Lumbosacral plexus disorders]57-22-2904GdmoiefSyzqm nervous system disorders (4 sources)Idiopathic peripheral neuropathy; Translations: [Hereditary and idiopathic neuropathy, unspecified]51-15-3610MwdrmvyIzeta nervous system disorders (20 sources)Acute postoperative pain; Translations: [Other acute postprocedural pain]Onset: 310916-38-0187NgxxgkuxSxheh nervous system disorders (7 sources)Postoperative pain ; Translations: [Other acute postprocedural pain] 85-88-9862FuukdmpuGkvco nervous system disorders (1 source)Finding related to ability to move; Translations: [Other abnormalities of gait and mobility]65-24-8607JcfyuquyVjgot nervous system disorders (3 sources)Other acute postprocedural pain; Translations: [Postoperative pain after spinal surgery]Onset: 25-54-7626EowwkcspUmguf non-epithelial cancer of skin (9 sources)Squamous cell carcinoma of bridge of blcm10-34-6980GamvwrnhDbzzn nutritional; endocrine; and metabolic disorders (9 sources)Overweight in adulthood with body mass index of 25 or more but less than 1911-70-6980JtfqsfzbYhtrj nutritional; endocrine; and metabolic disorders (3 sources)Swfwwqdsma11-03-9237HearergaEwtyf screening for suspected conditions (not mental disorders or infectious disease) (20 sources)Abnormal results of liver function studies; Translations: [Encounter for screening for malignant neoplasm of prostate]Onset: 97-95-3713AolvlrkuBfome skin disorders (9 sources)Inflamed seborrheic zjxxfugcz64-56-7586RtrhklpwKdwmb skin disorders (9 sources)Senile bhdwzwmlbrfeme86-11-2494LynjmaeaLzpgn skin disorders (9 sources)Skin zfs77-39-9890WzxkojycJikahmlhtp and visceral atherosclerosis (5 sources)Peripheral vascular disease, unspecified; Translations: [Peripheral vascular disease, unspecified]Onset: 758029-77-3632BcvioxvRwbpoyjd codes; unclassified (4 sources)H/O Spinal surgery; Translations: [Other specified postprocedural states]46-70-8715HenqinkiHekcythj codes; unclassified (1 source)Other specified postprocedural states; Translations: [History of laminectomy]Onset: 10-08-0814EcohkxsqHmytrvhu codes; unclassified (1 source)History of hernia repair; Translations: [Other specified postprocedural states]26-77-9084CqsrekonJcswjxamnoh; intervertebral disc disorders; other back problems (20 sources)Lumbar spondylosis; Translations: [Cervical spondylosis]Onset: 632887-24-1284BuzepjnChmyrkyanwx; intervertebral disc disorders; other back problems (20 sources)Lumbar radiculopathy; Translations: [Radiculopathy, cervical region] Onset: 771177-61-2188DwqqyeyiUsityxumwigl (9 sources)Patient encounter -69-7628Neqycuibfmtz (1 source)Chronic low back pain, unspecified back pain laterality, unspecified whether sciatica present; Translations: [Chronic low back pain, unspecified back pain laterality, unspecified whether sciatica present]Onset: 65-31-4887Lwohkamk veins of lower extremity (5 sources)Varicose veins of lower xoofrnyrh79-91-6927Qkzffdat Past or Other Problems Problem ClassificationProblemDateDocumented DateEpisodic/ChronicAllergic reactions (20 sources)Allergy to penicillin; Translations: [Allergy status to penicillin] Onset: 708777-56-9727UbgmqqlyXblqhlazlcaag of surgical procedures or medical care (5 sources)Complication of procedure; Translations: [Complication of surgical and medical care, unspecified, sequela]Onset: 745228-58-2336KzleuwyeVvqdv and unspecified benign neoplasm (20 sources)Benign neoplasm of skin; Translations: [Other benign neoplasm of skin, unspecified]Onset: 875737-50-3659YocpzjphXepal connective tissue disease (20 sources)Swelling of lower limb; Translations: [Other specified soft tissue disorders]Onset: 519099-02-7236HehtvnviUgnzs connective tissue disease (20 sources)Pain in lower limb; Translations: [Pain in leg, unspecified]Onset: 187239-02-1266ZbuwkmfwXdpks connective tissue disease (3 sources)Other symptoms and signs involving the musculoskeletal system; Translations: [Other musculoskeletalsymptoms referable to limbs]Onset: 280236-86-8556PzguzevcYwjyh connective tissue disease (2 sources)Other specified soft tissue disorders; Translations: [Localized swelling of lower extremity]Onset: 67-17-6202QabdualmXzqyo connective tissue disease (1 source)Pain in leg, unspecified; Translations: [Pain and swelling of lower extremity, unspecified laterality]Onset: 52-65-3474QronokdtNrxqt skin disorders (20 sources)Seborrheic keratosis; Translations: [Other seborrheic keratosis] Onset: 916277-92-5333HaarxxvwNdesnkfc codes; unclassified (20 sources)Pain; Translations: [Pain, unspecified]Onset: EpisodicResidual codes; unclassified (20 sources)Bilateral lower limb edema; Translations: [Localized edema]Onset: 673236-62-8945NaecebuiIjqfeinrsiqr (2 sources)History of cervical spine xqzrpu75-67-6861Klyqgwvgutzp (2 sources)PAD (peripheral artery disease)09-20-2024 Results Test NameValueInterpretationReference RangeFacilityReminderson 01-06-2025 RemindersReminders From: Caroline Bird LPN To: N - Clinical; Sent: 01/06/2025 14:24:45 EDT Show up: 12/07/2027 07:00:00 EDT Subject: colonoscopy recall Due Date/Time: 01/06/2028 07:00:00 EDT Reminder/Recall Patient due for colonoscopy 01/06/2028 due to history of villous adenoma. (2023) [facility] HospitalOffice Visiton 85-29-1383Vzlcii-up visit [id number] Braden Rodriguez 1955 M [facility] Provider Department Center 12/24/2024 Paul-TELLO HORNER CLAUDIA [facility] Family History Problem Relation Age of Onset Stroke Mother Melanoma Father Coronary artery disease Father Melanoma Brother Family Status - Relation Status Age at Mother Father Brother Level of Service:63260 MT OFFICE/OP CONSLTJ NEW/EST PT LOW MDM 30 MINUTESNormal [facility] HospitalOrders Onlyon 59-49-1253Tkoyuv [id number] Braden Rodriguez 1955 M Date Provider Department Center 12/22/2024 [id number], HISTORICAL CLAUDIA Montero Family History Problem Relation Age of Onset Stroke Mother Melanoma Father Coronary artery disease Father Melanoma Brother Family Status - Relation Status Age at Mother Father Brother DeceasedNormalUniversClinton Memorial HospitalAmbulatory Visit Summaryon 62-12-1850Hjyrfgppfa Visit SummaryAmbulatory Visit Summary BRADEN RODRIGUEZ :1955 [...] signed up for this yet, please contact [employer] at [phone] to get signed up today. Language Information Language assistance services are available as needed. [facility] HospitalAmbulatory Visit Summary Ambulatory Visit Summary BRADEN [...] signed up for this yet, please contact [employer] at [phone] to get signed up today. Language Information Language assistance services are available as needed. [facility] HospitalProvider Letteron 11-04-2024 Provider LetterProvider Letter November 04, 2024 BRADEN RODRIGUEZ [address] [place] [phone] : 1955 Dear Braden , We have [...] Sincerely, Dr. Camryn Agustin MD General Surgery [phone] HealthUS arterial pvr rest [place] 85-76-1415EX arterial pvr rest [facility] Main [place] [id number] Ultrasound Report Signed Patient: Braden Rodriguez MR#: [id number] : 1955 Acct:[id number] Age/Sex: 69 / M ADM Date: 09/27/24 Loc: Room: Type: [facility] CLI Attending Dr: Mahamed Gray DPM, [...] Zayas MD,FACS,FSVS 09/28/2024 7:56 AM Dictation Location: [place] [address] Tech: Shania Aguilar Transcribed By: ERYN 09/28/24 0756 Dictated By: Xander Zayas MD 09/28/24 0755 Signed By: 09/28/[address] [facility] GroupTAYL[facility] W Auto Differential panel (Bld)on 29-82-2190Xcmgcsemb (Bld) [#/Vol]0.1 10*3/uLNOMS HealthcareBasophils/100 WBC (Bld)1 %Not Estab.NOMS HealthcareEosinophils (Bld) [#/Vol]0.2 10*3/uLNOMS HealthcareEosinophils/100 WBC (Bld)3 %Not Estab.NOMS HealthcareErythrocyte distribution width (RBC) [Ratio]13.2 %11.6 - 15.4 %NOMS HealthcareHematocrit (Bld) [Volume fraction]39 %37.5 - 51.0 %NOMS HealthcareHemoglobin (Bld) [Mass/Vol]12.8 g/dLLow13.0 - 17.7 g/dLNOMS HealthcareImmature granulocytes (Bld) [#/Vol]0.1 10*3/uLNODC HealthcareImmature granulocytes/100 WBC (Bld)1 %Not Estab.[facility] HealthcareLymphocytes (Bld) [#/Vol]2.9 10*3/uLNODC Healthcare Lymphocytes/100 WBC (Bld)31 %Not Estab.[facility] HospitalMCH (RBC) [Entitic mass] 31.1 pg26.6 - 33.[address] John'sHC (RBC) [Mass/Vol]32.8 g/dL31.5 - 35.7 g/dLNOMissouri Baptist Hospital-SullivanV (RBC) [Entitic vol]95 fL79 - 97 fLHEBER VALLEY MEDICAL CENTER Healthcare Monocytes (Bld) [#/Vol]1.1 10*3/uLHighHEBER VALLEY MEDICAL [facility]ENTER HealthcareMonocytes/100 WBC (Bld)12 % Not Estab.[facility] HealthcareNeutrophils (Bld) [#/Vol]4.8 10*3/uLNODC Healthcare Neutrophils/100 WBC (Bld)52 %Not Estab.[facility] HealthcarePlatelets (Bld) [#/Vol]235 10*3/uLNODC HealthcareRBC (Bld) [#/Vol]4.11 10*6/uLLowHEBER VALLEY MEDICAL [facility]ENTER HealthcareWBC (Bld) [#/Vol]9.2 10*3/uLCedar County Memorial HospitalLaboratory - Chemistry and Chemistry - challengeon 46-95-5286Dkgkjrr [Mass/Vol]4.2 g/dL3.9 - 4.9 g/dLNODC HealthcareALP [Catalytic activity/Vol]67 U/LNOMS HealthcareALT [Catalytic activity/Vol]22 U/L NOMS HealthcareAST [Catalytic activity/Vol]31 U/LNOMS HealthcareBilirubin [Mass/Vol]0.5 mg/dL0.0 - 1.2 mg/dLNODC HealthcareCalcium [Mass/Vol]9.3 mg/dL8.6 - 10.2 mg/dLNODC HealthcareChloride [Moles/Vol]101 mmol/L96 - 106 mmol/LNOMS HealthcareCO2 [Moles/Vol]24 mmol/L20 - 29 mmol/LNOMS HealthcareCreatinine [Mass/Vol]1.23 mg/dL0.76 - 1.27 mg/dLNODC HealthcareCRP [Mass/Vol]9 mg/L0 - 10 mg/LNOMS HealthcareGFR/1.73 sq M.predicted among non-blacks MDRD (S/P/Bld) [Vol rate/Area]64 mL/min/{1.73_m2}59 - PINF mL/min/1.73NOMS HealthcareGlobulin (S) [Mass/Vol]1.6 g/dL1.5 - 4.5 g/dLNODC HealthcareGlucose [Mass/Vol]89 mg/dL70 - 99 mg/dLNODC HealthcarePotassium [Moles/Vol]5.5 mmol/LHigh3.5 - 5.2 mmol/LNOMS HealthcarePrealbumin [Mass/Vol]26 mg/dL10 - 36 mg/dLNODC HealthcareProtein [Mass/Vol]5.8 g/dLLow6.0 - 8.5 g/dLNODC HealthcareSodium [Moles/Vol]139 mmol/L 134 - 144 mmol/LNOMS HealthcareUrea nitrogen [Mass/Vol]23 mg/dL8 - 27 mg/dLCedar County Memorial HospitalUrea nitrogen/Creatinine [Mass ratio]19 mg/mg10 - 24NOProgress [facility] - Hematology and Cell countson 91-36-5171JEE (Bld) [Velocity]5 mm/h [facility] HospitalNo Panel Informationon 10-29-2031Yprdtbhacgxnro and review of laboratory resultsAbCorewell Health Reed City HospitalPerformed at: - [facility] [address] [id number] Connie Scratcher: Scout Ludwig PhD, Phone: [phone] HealthcareCNOV on 77-65-8575XBUCMomaqeAveawboim Clinic ClevelandCNPNon 24-68-2837ADDRArpuoy [facility]25([place])D3 SerPl-mCncon 33-08-666478961774-igctvowxkzpxcz D3 [Mass/Vol]42.5 ng/tELqcemu11.0-80.0[facility] HospitalComment on above: Order Comment: Specimen Type: BLOOD SPECIMENOrdering Facility: [facility] [place] Address:[address] [place] [address]Cwqgcg Comment: Classification of 25 [place] Vitamin D status:Deficiency/Insufficiency: < or = 30 ng/ml.Sufficiency/Optimal Levels: 31-80 ng/mLToxicity: > 100 ng/mL.Test performed by chemiluminescent immunoassay.Performed By: #### 1989-3 ####[facility] [id number] [address]CBC panel Auto (Bld)on 06-08-2024 Erythrocyte distribution width (RBC) [Ratio]12.7 %Duikys96.5-15.0[facility] Community HospitalComment on above:Order Comment: Specimen Type: BLOOD SPECIMENOrdering Facility: [facility] [place] Address:[address] [place], [place] [address]Performed By: #### 76755-6 ####[facility] [id number] [address] DIAZ STREETHematocrit (Bld) [Volume fraction]40.4 %Ptzkjo46.0-51.0[facility] on above:Order Comment: Specimen Type: BLOOD SPECIMENOrdering Facility: [facility] [place] Address:[address] [place], [place] [address]Performed By: #### 16725-9 ####[facility] [id number] [address] [place] Hemoglobin (Bld) [Mass/Vol]13.2 g/rUCpkdve39.0-17.0[facility] Comment on above:Order Comment: Specimen Type: BLOOD SPECIMENOrdering Facility: [facility] [place] Address:[address] [place] [address] Performed By: #### 61482-4 ####[facility] [id number] [place] [id number] [place] MCH (RBC) [Entitic mass]30.9 noTyhnts65.0-34.0[facility] on above:Order Comment: Specimen Type: BLOOD SPECIMENOrdering Facility: [facility] [place] Address:[address] [place] [address] Performed By: #### 34119-0 ####[facility] LABIA [id number] [place] [address] [place] MCHC (RBC) [Mass/Vol]32.7 g/oBYobivp78.5-36.0[facility] on above:Order Comment: Specimen Type: BLOOD SPECIMENOrdering Facility: [facility] [place] Address:[address] [place] [address] Performed By: #### 56083-2 ####[facility] LABIA [id number] [place] [address] [place] MCV (RBC) [Entitic vol]94.6 dCNhzbvs60.0-100.0[facility] on above:Order Comment: Specimen Type: BLOOD SPECIMENOrdering Facility: [facility] [place] Address:[address] [place] [address] Performed By: #### 42673-8 ####[facility] [id number] [place] [address] [place] Nucleated RBC (Bld) [#/Vol]10*3/uLNormal<0.01[facility] on above:Order Comment: Specimen Type: BLOOD SPECIMENOrdering Facility: [facility] [place] Address:[address] [place] [address] Performed By: #### 97636-8 ####[facility] LABIA [id number] [place] [address] [place] Platelet mean volume (Bld) [Entitic vol]10.7 fLNormal9.0-12.7CThe [facility] on above:Order Comment: Specimen Type: BLOOD SPECIMENOrdering Facility: [facility] [place] Address:[address] [place], [place] [address]Performed By: #### 79696-5 ####[facility] [id number] [address] AV[address]ED[address] [place] [address] [place] Platelets (Bld) [#/Vol]277 10*3/rGFokcws036-969VnjyifpjmKettering Health [facility]burg on above:Order Comment: Specimen Type: BLOOD SPECIMENOrdering Facility: [facility] [place] Address:[address] [place] [address] Performed By: #### 82495-5 ####[facility] LABCLIA [id number] [place] [address] [place] RBC (Bld) [#/Vol]4.27 10*6/uLNormal4.20-6.00[facility] on above:Order Comment: Specimen Type: BLOOD SPECIMENOrdering Facility: [facility] [place] Address:[address] [place], [place] [address]Performed By: #### 10532-0 ####[facility] LABCLIA [id number] [place] [address] [place] AMERICAWBC (Bld) [#/Vol]8.97 10*3/uLNormal3.70-11.00[facility] on above:Order Comment: Specimen Type: BLOOD SPECIMENOrdering Facility: [facility] [place] Address:[address] [place], [place] [address]Performed By: #### 34884-4 ####[facility] LABCLIA [id number] [place] [address] [place] AMERICACNDSon 92-06-2939FMYTKvphmw [facility] HospitalComprehensive metabolic 2000 panelon 20-27-7106Bafgwjx [Mass/Vol]3.5 g/dLLow3.9-4.9CThe [facility] on above:Order Comment: Specimen Type: BLOOD SPECIMENOrdering Facility: [facility] [place] Address:[address] [place], [place] [address]Performed By: #### 53262- 9, 76951-5, HSTNT, 2777-1 ####[facility] LABCLIA [id number] [address] [address] [place] AMERICAALP [Catalytic activity/Vol]80 U/BFcvbhq05-957DkklolfysKettering Health [facility]burg on above:Order Comment: Specimen Type: BLOOD SPECIMENOrdering Facility: [facility] [place] Address:[address] [place], [place] [address]Performed By: #### 02719-8, 74728-4, HSTNT, 277-1 ####[facility] LABCLIA [id number] [place] [address] [place] ALT [Catalytic activity/Vol]10 U/XLbufsx55-47VilslorzzKettering Health [facility]burg on above:Order Comment: Specimen Type: BLOOD SPECIMENOrdering Facility: [facility] [place] Address:[address] [place] [address] Performed By: #### 70498-3, 24832-9, HSTNT, 277-1 ####[facility] LABCLIA [id number] [address] STATES OF AMERICAAnion gap [Moles/Vol]13 mmol/LNormal8-15[facility] on above:Order Comment: Specimen Type: BLOOD SPECIMENOrdering Facility: [facility] [place] Address:[address] [place], [place] [address]Performed By: #### 72483-5, 19644-5, HSTNT, 277-1 ####[facility] LABCLIA [id number] [place] [address] [place] AMERICAAST [Catalytic activity/Vol]25 U/ICyklro42-27PsxbzswfhKettering Health [facility] on above:Order Comment: Specimen Type: BLOOD SPECIMENOrdering Facility: [facility] [place] Address:[address] [place], [place] [address]Result Comment: Results may be falsely increased due to interference from hemolysis. Suggest reorder as clinically indicated.Performed By: #### 08962-9, 46237-9, HSTNT, 277-1 ####[facility] LABCLIA [id number] [place] [address] [place] AMERICABilirubin [Mass/Vol]0.8 mg/dLNormal0.2-1.3CSelect [facility] Comment on above:Order Comment: Specimen Type: BLOOD SPECIMENOrdering Facility: [facility] [place] Address:[address] [place] [address] Performed By: #### 15602-7, 24577-3, HSTNT, 2777-1 ####[facility] LABCLIA [id number] [place] [address] [place] AMERICACalcium [Mass/Vol]9.5 mg/dLNormal8.5-10.2ClevelFirstHealth Moore Regional Hospital - HokeComment on above:Order Comment: Specimen Type: BLOOD SPECIMENOrdering Facility: [facility] [place] Address:[address] [place], [place] [address]Performed By: #### 44638-0, 79805-8, HSTNT, 2776-1 ####[facility] LABIA [id number] [place] [address] [place] AMERICAChloride [Moles/Vol]106 mmol/XPffblp91-866TqdrvjbgvWvumedicine Harrison Community HospitalComment on above:Order Comment: Specimen Type: BLOOD SPECIMENOrdering Facility: [facility] [place] Address:[address] [place], [place] [address]Performed By: #### 21124-3, 73124-3, HSTNT, 2776-1 ####[facility] LABCLIA [id number] [place] [address] [place] AMERICACO2 [Moles/Vol]24 mmol/LNormal 22-30[facility] HospitalCompromedica monroe regional hospital on above:Order Comment: Specimen Type: BLOOD SPECIMENOrdering Facility: [facility] [place] Address:[address] [place], [place] [address]Performed By: #### 70248-9, 93268-4, HSTNT, 2777-1 ####[facility] LABCLIA [id number] [address] [address] [place] AMERICACreatinine [Mass/Vol]0.76 mg/dL Normal0.73-1.22[facility] on above:Order Comment: Specimen Type: BLOOD SPECIMENOrdering Facility: [facility] [place] Address:[address] [place], [place] [address]Performed By: #### 18154-1, 01589-8, HSTNT, 2777-1 ####[facility] LABIA [id number] [address] [address] [place] AMERICACreatinine and Glomerular filtration rate.predicted panel (S/P/Bld)99 mL/min/1.73m???Normal>=60 [facility] on above:Order Comment: Specimen Type: BLOOD SPECIMENOrdering Facility: [facility] [place] Address:[address] [place], [place] [address]Result Comment: Estimated Glomerular Filtration Rate (eGFR) is calculated using the 2020 CKD-EPI creatinine equation. This equation utilizes serum creatinine, sex, and age as parameters. The creatinine assay has traceable calibration to isotope dilution-mass spectrometry. Refer to KDIGO guidelines for clinical interpretation. In patients with unstable renal function, e.g. those with acute kidney injury, the eGFR may not accurately reflect actual GFR.Performed By: #### 86071-4, 93094-8, HSTNT, 277-1 ####[facility] LABIA [id number] [address] [address] [place] AMERICAGlucose [Mass/Vol]90 mg/dLNormal 74-99[facility] on above:Order Comment: Specimen Type: BLOOD SPECIMENOrdering Facility: [facility] [place] Address:[address] [place], [place] [address]Result Comment: The [place] Diabetes Association (ADA) provides guidance for cutoff [...] Standards of Medical Care in Diabetes 2016, [place] Diabetes Association. Diabetes Care. 2016.39(Suppl 1).Performed By: #### 50088- 9, 46260-7, HSTNT, 2776-1 ####[facility] LABCLIA [id number] [address] [address] [place] Potassium [Moles/Vol]4.2 mmol/LNormal3.7-5.1CThe [facility] on above:Order Comment: Specimen Type: BLOOD SPECIMENOrdering Facility: [facility] [place] Address:[address] [place], [place] [address]Performed By: #### 17748-4, 35077-0, HSTNT, 2776- ####[facility] LABCLIA [id number] [place] [address] [place] Protein [Mass/Vol]6.1 g/dLLow6.3-8.0[facility] on above: Order Comment: Specimen Type: BLOOD SPECIMENOrdering Facility: [facility] [place] Address:[address] [place], [place] [address]Performed By: #### 22591- 9, 56191-5, HSTNT, 2776- ####[facility] LABCLIA [id number] [place] [id number] [place] AMERICASodium [Moles/Vol]143 mmol/QOuarkw642-304JhiufwzyhKettering Health Miamisburg on above: Order Comment: Specimen Type: BLOOD SPECIMENOrdering Facility: [facility] [place] Address:[address] [place], [place] [address]Performed By: #### 80215- 9, 27554-4, HSTNT, 277-1 ####[facility] LABCLIA [id number] [place] [address] [place] AMERICAUrea nitrogen [Mass/Vol]16 mg/dLNormal9-24[facility] on above: Order Comment: Specimen Type: BLOOD SPECIMENOrdering Facility: [facility] [place] Address:[address] [place], [place] [address]Performed By: #### 63893- 9, 80351-1, HSTNT, 2777-1 ####[facility] LABCLIA [id number] [place] [id number] [place] AMERICAECG COMPLETEon 15-33-5203USG COMPLETENormalCSelect Medical TriHealth Rehabilitation HospitalHIGH SENSITIVITY TROPONIN Ton 92-00-0392Lkwrenxv T.cardiac High sensitivity method [Mass/Vol]28 ng/LHigh<12[facility] on above:Order Comment: Specimen Type: BLOOD SPECIMENOrdering Facility: [facility] [place] Address:[address] [place], [place] [address]Performed By: #### 16658- 9, 52974-0, HSTNT, 2777-1 ####[facility] LABCLIA [id number] [place] [id number] [place] Magnesium SerPl-mCncon 31-49-6620Rkggjxdfh [Mass/Vol]2.0 mg/dLNormal1.7-2.3 [facility] on above:Order Comment: Specimen Type: BLOOD SPECIMENOrdering Facility: [facility] [place] Address:[address] [place], [place] [address]Performed By: #### 17386-8, 07065-9, HSTNT, 2777-1 ####[facility] LABIA [id number] [place] [address] [place] AMERICAPhosphate SerPl-mCncon 06-08-2024 Phosphate [Mass/Vol]3.3 mg/dLNormal2.7-4.8CThe [facility] on above:Order Comment: Specimen Type: BLOOD SPECIMENOrdering Facility: [facility] [place] Address:[address] [place], [place] [address]Performed By: #### 59960-3, 23607-6, HSTNT, 2777-1 ####[facility] LABCLIA [id number] [place] [address] [place] CASE MANAGEMon 19-26-8848RYJU MANAGEMNormalWvumedicine Harrison Community HospitalCB W Auto Differential panel (Bld)on 56-09-1848Ljwsfwepy (Bld) [#/Vol]0.06 10*3/uLNormal <0.11CSelect Medical TriHealth Rehabilitation HospitalComment on above:Order Comment: Specimen Type: BLOOD SPECIMENOrdering Facility: [facility] [place] Address:[address] [place], [place] [address]Performed By: #### 27368-3 ####[facility] LABCLIA [id number] [place] [address] [place] AMERICABasophils/100 WBC (Bld)0.6 %NormalWvumedicine Harrison Community Hospital Comment on above:Order Comment: Specimen Type: BLOOD SPECIMENOrdering Facility: [facility] [place] Address:[address] [place] [address] Performed By: #### [id number] ####[facility] LABCLIA [id number] [address], [facility] [place] Differential cell count method Nom (Bld)AutoNormalClevelFirstHealth [facility] Comment on above:Order Comment: Specimen Type: BLOOD SPECIMENOrdering Facility: [facility] [place] Address:[address] [place] [address] Performed By: #### [id number] ####[facility] LABCLIA [id number] [place] [id number] [place] Eosinophils (Bld) [#/Vol]0.32 10*3/uLNormal<0.46Wvumedicine [facility] Comment on above:Order Comment: Specimen Type: BLOOD SPECIMENOrdering Facility: [facility] [place] Address:[address] [place] [address] Performed By: #### 88551-6 ####[facility] LABIA [id number] [place] [address] [place] Eosinophils/100 WBC (Bld)3.2 %NormalKettering Health Miamisburg on above: Order Comment: Specimen Type: BLOOD SPECIMENOrdering Facility: [facility] [place] Address:[address] [place], [place] [address]Performed By: #### 56469- 8 ####[facility] LABIA [id number] [address], [place] [address] [place] AMERICAErythrocyte distribution width (RBC) [Ratio]13.0 %Szcwgu49.5-15.0[facility] on above: Order Comment: Specimen Type: BLOOD SPECIMENOrdering Facility: [facility] [place] Address:[address] [place], [place] [address]Performed By: #### 94370- 8 ####[facility] LABIA [id number] [place] [address] [place] AMERICAHematocrit (Bld) [Volume fraction]37.7 %Low39.0-51.0[facility] on above:Order Comment: Specimen Type: BLOOD SPECIMENOrdering Facility: [facility] [place] Address:[address] [place], [place] [address]Performed By: #### 22035- 8 ####[facility] LABIA [id number] [place] [address] [place] AMERICAHemoglobin (Bld) [Mass/Vol]12.4 g/dLLow13.0-17.0[facility] on above:Order Comment: Specimen Type: BLOOD SPECIMENOrdering Facility: [facility] [place] Address:[address] [place], [place] [address]Performed By: #### 63884-4 ####[facility] LABIA [id number] [address] [place] [address] [place] AMERICAImmature granulocytes (Bld) [#/Vol]0.14 10*3/uLHigh<0.10[facility] on above:Order Comment: Specimen Type: BLOOD SPECIMENOrdering Facility: [facility] [place] Address:[address] [place], [place] [address]Performed By: #### 17336- 8 ####[facility] LABIA [id number] [place] [address] [place] AMERICAImmature granulocytes/100 WBC (Bld)1.4 %NormalKettering Health Miamisburg on above:Order Comment: Specimen Type: BLOOD SPECIMENOrdering Facility: [facility] [place] Address:[address] [place], [place] [address]Performed By: #### 59211-7 ####[facility] LABIA [id number] [place] [address] [place] AMERICALymphocytes (Bld) [#/Vol]2.70 10*3/uLNormal1.00-4.00[facility] on above:Order Comment: Specimen Type: BLOOD SPECIMENOrdering Facility: [facility] [place] Address:[address] [place], [place] [address]Performed By: #### 80690-0 ####[facility] LABIA [id number] [place] [address] [place] AMERICALymphocytes/100 WBC (Bld)26.8 % NormalKettering Health [facility]amis[facility] on above:Order Comment: Specimen Type: BLOOD SPECIMENOrdering Facility: [facility] [place] Address:[address] [place], [place] [address]Performed By: #### 53843-4 ####[facility] LABIA [id number] [place] [id number] [place] AMERICAMCH (RBC) [Entitic mass]31.1 ybEykrlt62.0-34.0[facility] on above:Order Comment: Specimen Type: BLOOD SPECIMENOrdering Facility: [facility] [place] Address:[address] [place], [place] [address]Performed By: #### 79041-3 ####[facility] LABIA [id number] [place] [address] [place] MCHC (RBC) [Mass/Vol]32.9 g/eQCclhxm20.5-36.0[facility] on above:Order Comment: Specimen Type: BLOOD SPECIMENOrdering Facility: [facility] [place] Address:[address] [place] [address] Performed By: #### 81187-3 ####[facility] LABIA [id number] [place] [address] [place] MCV (RBC) [Entitic vol]94.5 yNLtzegq50.0-100.0[facility] on above:Order Comment: Specimen Type: BLOOD SPECIMENOrdering Facility: [facility] [place] Address:[address] [place] [address] Performed By: #### 59068-0 ####[facility] LABIA [id number] [place] [address] [place] Monocytes (Bld) [#/Vol]1.26 10*3/uLHigh<0.87[facility] on above:Order Comment: Specimen Type: BLOOD SPECIMENOrdering Facility: [facility] [place] Address:[address] [place], [place] [address]Performed By: #### 05314-3 ####[facility] LABIA [id number] [place] [address] [place] AMERICAMonocytes/100 WBC (Bld)12.5 %NormalKettering Health [facility] on above:Order Comment: Specimen Type: BLOOD SPECIMENOrdering Facility: [facility] [place] Address:[address] [place], [place] [address]Performed By: #### 53686-6 ####[facility] LABCLIA [id number] [place] [address] [place] AMERICANeutrophils (Bld) [#/Vol]5.60 10*3/uLNormal1.45-7.50[facility] on above:Order Comment: Specimen Type: BLOOD SPECIMENOrdering Facility: [facility] [place] Address:[address] [place], [place] [address]Performed By: #### 41457-9 ####[facility] LABIA [id number] [place] [address] [place] AMERICANeutrophils/100 WBC (Bld)55.5 % NormalWvumedicine Harrison Community HospitalComment on above:Order Comment: Specimen Type: BLOOD SPECIMENOrdering Facility: [facility] [place] Address:[address] [place], [place] [address]Performed By: #### 14916-5 ####[facility] [id number] [place] [address] [place] AMERICANucleated RBC (Bld) [#/Vol]10*3/uLNormal<0.01[facility] on above:Order Comment: Specimen Type: BLOOD SPECIMENOrdering Facility: [facility] [place] Address:[address] [place], [place] [address]Performed By: #### 89786-5 ####[facility] [id number] [place] [address] [place] Nucleated RBC/100 WBC (Bld) [Ratio]0.0 /100 WBCNormalCSelect Medical [facility] Comment on above:Order Comment: Specimen Type: BLOOD SPECIMENOrdering Facility: [facility] [place] Address:[address] [place] [address] Performed By: #### 95380-7 ####[facility] LABIA [id number] [place] [address] [place] Platelet mean volume (Bld) [Entitic vol]10.2 fLNormal9.0-12.7[facility] ClevelandComment on above:Order Comment: Specimen Type: BLOOD SPECIMENOrdering Facility: [facility] [place] Address:[address] [place], [place] [address]Performed By: #### 59196-7 ####[facility] LABCLIA [id number] [place] [id number] [place] Platelets (Bld) [#/Vol]290 10*3/dMWnbuoi378-789UreangcafKettering Health Miamisburg on above:Order Comment: Specimen Type: BLOOD SPECIMENOrdering Facility: [facility] [place] Address:[address] [place] [address] Performed By: #### 60857-9 ####[facility] LABIA [id number] [place] [address] [place] RBC (Bld) [#/Vol]3.99 10*6/uLLow4.20-6.00[facility] on above:Order Comment: Specimen Type: BLOOD SPECIMENOrdering Facility: [facility] [place] Address:[address] [place], [place] [address]Performed By: #### 73273-8 ####[facility] LABIA [id number] [address] STATES OF PREMIER HEALTHWBC (Bld) [#/Vol]10.08 10*3/uLNormal3.70-11.00[facility] on above:Order Comment: Specimen Type: BLOOD SPECIMENOrdering Facility: [facility] [place] Address:[address] [place], [place] [address]Performed By: #### 85829- 8 ####[facility] LABIA [id number] [place] [id number] [place] AMERICAComprehensive metabolic 2000 panelon 55-00-8267Eoncpva [Mass/Vol]3.9 g/dLNormal3.9-4.9CThe [facility] on above:Order Comment: Specimen Type: BLOOD SPECIMENOrdering Facility: [facility] [place] Address:[address] [place], [place] [address]Performed By: #### 17097-2, 2777-1, 26854-9, HSTNT ####[facility] LABCLIA [id number] [address] [address] [place] OF AMERICAALP [Catalytic activity/Vol]76 U/FSwcltn34-745AwghqtwpsKettering Health [facility]burg on above:Order Comment: Specimen Type: BLOOD SPECIMENOrdering Facility: [facility] [place] Address:[address] [place], [place] [address]Performed By: #### 35817-5, 2777-1, 59479-7, HSTNT ####[facility] LABCLIA [id number] [address] [address] [place] AMERICAALT [Catalytic activity/Vol]12 U/ARrcabs20-36YwqhqgbhkKettering Health [facility]burg on above:Order Comment: Specimen Type: BLOOD SPECIMENOrdering Facility: [facility] [place] Address:[address] [place], [place] [address]Performed By: #### 42870-1, 2777-1, 93682-2, HSTNT ####[facility] LABCLIA [id number] [address] [address] [place] AMERICAAnion gap [Moles/Vol]16 mmol/L High8-15[facility] on above:Order Comment: Specimen Type: BLOOD SPECIMENOrdering Facility: [facility] [place] Address:[address] [place], [place] [address]Performed By: #### 13070-7, 277-1, 90919-0, HSTNT ####[facility] LABCLIA [id number] [address] [address] [place] AMERICAAST [Catalytic activity/Vol]24 U/DXttsmo96-84OeiuwdhscKettering Health Miamisburg on above:Order Comment: Specimen Type: BLOOD SPECIMENOrdering Facility: [facility] [place] Address:[address] [place] [address]Gamkblxhi By: #### 78791-3, 2777-1, 64840-2, HSTNT ####[facility] LABCLIA [id number] [place] [id number] [place] AMERICABilirubin [Mass/Vol]1.0 mg/dL Normal0.2-1.3CThe [facility] on above:Order Comment: Specimen Type: BLOOD SPECIMENOrdering Facility: [facility] [place] Address:[address] [place], [place] [address]Performed By: #### 23271-3, 2777-1, 68599-7, HSTNT ####[facility] LABCLIA [id number] [place] [address] [place] AMERICACalcium [Mass/Vol]9.6 mg/dLNormal 8.5-10.2ClevelMercy Health – The [facility] on above:Order Comment: Specimen Type: BLOOD SPECIMENOrdering Facility: [facility] [place] Address:[address] [place], [place] [address]Performed By: #### 24595-2, 2777-1, 73735-4, HSTNT ####[facility] LABCLIA [id number] [place] [address] [place] AMERICAChloride [Moles/Vol]99 mmol/L Eeqzrp20-697WhsbcaxdcKettering Health Miamisburg on above:Order Comment: Specimen Type: BLOOD SPECIMENOrdering Facility: [facility] [place] Address:[address] [place], [place] [address]Performed By: #### 76529-2, 2777-1, 45382-4, HSTNT ####[facility] LABCLIA [id number] [place] [id number] [place] AMERICACO2 [Moles/Vol]24 mmol/LNormal 22-30[facility] on above:Order Comment: Specimen Type: BLOOD SPECIMENOrdering Facility: [facility] [place] Address:[address] [place], [place] [address]Performed By: #### 59339-5, 2777-1, 16311-6, HSTNT ####[facility] LABIA [id number] [address] [address] [place] AMERICACreatinine [Mass/Vol]1.04 mg/dL Normal0.73-1.22[facility] on above:Order Comment: Specimen Type: BLOOD SPECIMENOrdering Facility: [facility] [place] Address:[address] [place], [place] [address]Performed By: #### 39977-3, 2777-1, 55211-8, HSTNT ####[facility] [id number] [address] [address] [place] AMERICACreatinine and Glomerular filtration rate.predicted panel (S/P/Bld)79 mL/min/1.73m???Normal>=60 [facility] on above:Order Comment: Specimen Type: BLOOD SPECIMENOrdering Facility: [facility] [place] Address:[address] [place], [place] [address]Result Comment: Estimated Glomerular Filtration Rate (eGFR) is calculated using the 2020 CKD-EPI creatinine equation. This equation utilizes serum creatinine, sex, and age as parameters. The creatinine assay has traceable calibration to isotope dilution-mass spectrometry. Refer to KDIGO guidelines for clinical interpretation. In patients with unstable renal function, e.g. those with acute kidney injury, the eGFR may not accurately reflect actual GFR.Performed By: #### 19591-4, 277-1, 83038-6, HSTNT ####[facility] LABIA [id number] [address] [address] [place] AMERICAGlucose [Mass/Vol]110 mg/dLHigh 74-99[facility] on above:Order Comment: Specimen Type: BLOOD SPECIMENOrdering Facility: [facility] [place] Address:[address] [place], [place] [address]Result Comment: The [place] Diabetes Association (ADA) provides guidance for cutoff [...] Standards of Medical Care in Diabetes 2016, [place] Diabetes Association. Diabetes Care. 2016.39(Suppl 1).Performed By: #### 91513- 9, 2777-1, 64844-2, HSTNT ####[facility] LABIA [id number] [place] [address] [place] Potassium [Moles/Vol]3.9 mmol/LNormal3.7-5.1CThe [facility] on above:Order Comment: Specimen Type: BLOOD SPECIMENOrdering Facility: [facility] [place] Address:[address] [place], [place] [address]Performed By: #### 46491-1, 2777-, 71354-0, HSTNT ####[facility] LABIA [id number] [place] [address] [place] Protein [Mass/Vol]6.3 g/dLNormal6.3-8.0[facility] on above:Order Comment: Specimen Type: BLOOD SPECIMENOrdering Facility: [facility] [place] Address:[address] [place], [place] [address]Performed By: #### 90889-9, 2777-, 49694-7, HSTNT ####[facility] LABIA [id number] [place] [address] [place] Sodium [Moles/Vol]139 mmol/QCgssgp638-094PfwtubpkxKettering Health [facility] on above:Order Comment: Specimen Type: BLOOD SPECIMENOrdering Facility: [facility] [place] Address:[address] [place], [place] [address]Performed By: #### 28236-9, 2777-1, 96420-5, HSTNT ####[facility] LABCLIA [id number] [place] [address] [place] Urea nitrogen [Mass/Vol]17 mg/dLNormal9-24[facility] on above:Order Comment: Specimen Type: BLOOD SPECIMENOrdering Facility: [facility] [place] Address:[address] [place], [place] [address]Performed By: #### 56358-1, 2777-1, 85854-5, HSTNT ####[facility] LABCLIA [id number] [place] [address] [place] ECG COMPLETEon 81-52-7758GYW COMPLETENormalCSelect Medical TriHealth Rehabilitation HospitalHIGH SENSITIVITY TROPONIN Ton 07-03-4653Xhalkwwp T.cardiac High sensitivity method [Mass/Vol]31 ng/LHigh<12[facility] on above:Order Comment: Specimen Type: BLOOD SPECIMENOrdering Facility: [facility] [place] Address:[address] [place], [place] [address]Performed By: #### 78733- 9, 7-1, 08505-9, HSTNT ####[facility] LABCLIA [id number] [place] [id number] [place] AMERICAMEDICAL EMERon 55-92-5830GHNJIDS EMERNormalCSelect Medical TriHealth Rehabilitation HospitalMagnesium SerPl-mCncon 65-55-7145Bfgwjyjfe [Mass/Vol]1.9 mg/dLNormal1.7-2.3CThe [facility] on above:Order Comment: Specimen Type: BLOOD SPECIMENOrdering Facility: [facility] [place] Address:[address] [place], [place] [address]Performed By: #### 96658-6, 2777-1, 76963-2, HSTNT ####[facility] LABCLIA [id number] [place] AVENUEDES[address]ETURSING PROGon 60-91-0820EUBDQDX PROGNormalWvumedicine [facility] Community HospitalNURSING PROGNormalWvumedicine [facility] Phosphate SerPl-mCncon 02-16-4555Xqbumqnop [Mass/Vol]3.3 mg/dLNormal2.7-4.8 [facility] HospitalCompromedica monroe [facility] on above:Order Comment: Specimen Type: BLOOD SPECIMENOrdering Facility: [facility] [place] Address:[address] [place], [place] [address]Performed By: #### 35846-4, 2777-1, 50672-5, HSTNT ####[facility] LABCLIA [id number] [address] STATES OF PREMIER HEALTHARTERIAL BLOOD GASESon 06-06-2024 Base excess Calc (Bld) [Moles/Vol]4 mmol/LHigh0-2CSelect [facility] Comment on above:Order Comment: Specimen Type: ARTERIAL BLOOD SPECIMENOrdering Facility: [facility] [place]Address: [address] [place], [place] [address]Performed By: #### ALLBG ####[facility] LABCLIA [id number] [place] [address] [place] Body hkbwxbetnbi24.6 [degF]NormalKettering Health [facility]burg on above: Order Comment: Specimen Type: ARTERIAL BLOOD SPECIMENOrdering Facility: [facility] [place]Address: [address] [place] [address] Performed By: #### ALLBG ####[facility] LABCLIA [id number] [place] [address] [place] Calcium.ionized (Bld) [Mass/Vol]1.23 mmol/LNormal1.08-1.30[facility] on above:Order Comment: Specimen Type: ARTERIAL BLOOD SPECIMENOrdering Facility: [facility] [place]Address: [address] [place], [place] [address]Performed By: #### ALLBG ####[facility] LABCLIA [id number] [place] [address] [place] AMERICACalcium.ionized adjusted to pH 7.4 (BldA) [Moles/Vol]1.26 mmol/LNormal 1.08-1.30[facility] on above:Order Comment: Specimen Type: ARTERIAL BLOOD SPECIMENOrdering Facility: [facility] [place] Address: [address] [place], [place] [address]Performed By: #### ALLBG ####[facility] LABCLIA [id number] [place] [address] [place] AMERICACarboxyhemoglobin (BldA) [Mass fraction]1.2 %Normal0.0-2.0[facility] on above:Order Comment: Specimen Type: ARTERIAL BLOOD SPECIMENOrdering Facility: [facility] [place]Address: [address] [place], [place] [address]Result Comment: Carboxyhemoglobin Reference Range for Smokers: 2.0-8.0%Performed By: #### ALLBG ####[facility] LABIA [id number] [place] [address] [place] AMERICACO2 (Bld) [Partial pressure]39 mm OdAoylef02-31EdkuxudkcKettering Health Miamisburg on above:Order Comment: Specimen Type: ARTERIAL BLOOD SPECIMENOrdering Facility: [facility] [place] Address: [address] [place], [place] [address]Performed By: #### ALLBG ####[facility] LABCLIA [id number] [place] [address] [place] AMERICAGlucose [Mass/Vol]116 mg/dLHigh 60-105[facility] on above:Order Comment: Specimen Type: ARTERIAL BLOOD SPECIMENOrdering Facility: [facility] [place]Address: [address] [place], [place] [address]Performed By: #### ALLBG ####[facility] LABIA [id number] [place] [address] [place] AMERICAHCO3 (Bld) [Moles/Vol]27 mmol/XReys82-45LkafyclqxKettering Health [facility]amisburg on above:Order Comment: Specimen Type: ARTERIAL BLOOD SPECIMENOrdering Facility: [facility] [place]Address: [address] [place] [id number] By: #### ALLBG ####[facility] LABIA [id number] [place] [id number] [place] AMERICAHematocrit (Bld) [Volume fraction]39.5 %Daquyn83.0-51.0[facility] Medical Centerment on above:Order Comment: Specimen Type: ARTERIAL BLOOD SPECIMENOrdering Facility: [facility] [place]Address: [address] [place] [address]Performed By: #### ALLBG ####[facility] LABIA [id number] [place] [id number] [place] AMERICAHemoglobin (Bld) [Mass/Vol]12.9 g/dLLow13.0-17.0[facility] on above:Order Comment: Specimen Type: ARTERIAL BLOOD SPECIMENOrdering Facility: [facility] [place]Address: [address] [place] [id number] By: #### ALLBG ####[facility] LABIA [id number] [place] [id number] [place] AMERICALactate [Moles/Vol]0.6 mmol/LNormal0.5-2.2CSelect [facility] Comment on above:Order Comment: Specimen Type: ARTERIAL BLOOD SPECIMENOrdering Facility: [facility] [place]Address: [address] [place] [id number] By: #### ALLBG ####[facility] LABIA [id number] [address] [address] [place] Methemoglobin (Bld) [Mass fraction]0.5 %Normal0.0-1.5ClevelFirstHealth Moore Regional [facility] Comment on above:Order Comment: Specimen Type: ARTERIAL BLOOD SPECIMENOrdering Facility: [facility] [place]Address: [address] [place] [id number] By: #### ALLBG ####[facility] LABCLIA [id number] [address] [address] [place] O2 THERAPYRA=Room AirNormalCThe Jewish Hospital on above:Order Comment: Specimen Type: ARTERIAL BLOOD SPECIMENOrdering Facility: [facility] [place]Address: [address] [place], [place] [address]Performed By: #### ALLBG ####[facility] LABCLIA [id number] [address] [address] [place] AMERICAOxygen (Bld) [Partial pressure]74 mm DiEcd93-60WfvsvuhvnKettering Health Miamisburg on above:Order Comment: Specimen Type: ARTERIAL BLOOD SPECIMENOrdering Facility: [facility] [place] Address: [address] [place], [place] [address]Performed By: #### ALLBG ####[facility] LABCLIA [id number] [address] [address] [place] PREMIER HEALTHOxyhemoglobin (BldA) [Mass fraction]94 %Eqy97-17PfrthsjmsKettering Health [place]amisburg on above:Order Comment: Specimen Type: ARTERIAL BLOOD SPECIMENOrdering Facility: [facility] [place]Address: [address] [place] [id number] By: #### ALLBG ####[facility] LABIA [id number] [facility] 34 [address] [address] [place] OF AMERICApH (Bld)7.46 [pH]High7.35-7.45 [facility] on above:Order Comment: Specimen Type: ARTERIAL BLOOD SPECIMENOrdering Facility: [facility] [place]Address: [address] [place] [id number] By: #### ALLBG ####[facility] LABCLIA [id number] [address] [address] [place] AMERICAPO2 / FIO2 QQZWZ945 mmHgNormal>300[facility] on above:Order Comment: Specimen Type: ARTERIAL BLOOD SPECIMENOrdering Facility: [facility] [place]Address: [address] [place], [place] [address]Performed By: #### ALLBG ####[facility] LABCLIA [id number] [address] [address] [place] AMERICAPotassium [Moles/Vol]3.8 mmol/LNormal3.5-5.0[facility] Comment on above:Order Comment: Specimen Type: ARTERIAL BLOOD SPECIMENOrdering Facility: [facility] [place]Address: [address] [place], [place] [address]Performed By: #### ALLBG ####[facility] LABIA [id number] [place] [id number] [place] Sodium [Moles/Vol]137 mmol/LQykixx840-556ZffmxdavvKettering Health [facility] on above:Order Comment: Specimen Type: ARTERIAL BLOOD SPECIMENOrdering Facility: [facility] [place]Address: [address] [place] [id number] Performed By: #### ALLBG ####[facility] LABIA [id number] [address] [address] [place] OF AMERICABasic metabolic 2000 panelon 32-22-6151Gchfb gap [Moles/Vol]11 mmol/LNormal8-15 [facility] on above:Order Comment: Specimen Type: BLOOD SPECIMENOrdering Facility: [facility] [place] Address:[address] [place], [place] [address]Performed By: #### 64802-6, HSTNT ####[facility] LABIA [id number] [address] [address] [place] AMERICACalcium [Mass/Vol]9.8 mg/dLNormal8.5-10.2CThe [facility] on above:Order Comment: Specimen Type: BLOOD SPECIMENOrdering Facility: [facility] [place] Address:[address] [place], [place] [address]Performed By: #### 85405-9, HSTNT ####[facility] LABCLIA [id number] [address] [address] [place] Chloride [Moles/Vol]102 mmol/UGwfagp79-805CmaprithjKettering Health [facility] on above:Order Comment: Specimen Type: BLOOD SPECIMENOrdering Facility: [facility] [place] Address:[address] [place], [place] [address]Performed By: #### 92544-4, HSTNT ####[facility] LABIA [id number] [place] [id number] [place] AMERICACO2 [Moles/Vol]27 mmol/AAbqadx72-98VvccqsqtoKettering Health [facility] on above:Order Comment: Specimen Type: BLOOD SPECIMENOrdering Facility: [facility] [place] Address:[address] [place], [place] [address]Performed By: #### 99683-0, HSTNT ####[facility] LABIA [id number] [place] [address] [place] AMERICACreatinine [Mass/Vol]1.00 mg/dL Normal0.73-1.22[facility] on above:Order Comment: Specimen Type: BLOOD SPECIMENOrdering Facility: [facility] [place] Address:[address] [place], [place] [address]Performed By: #### 04575-5, HSTNT ####[facility] LABIA [id number] [address] OF AMERICACreatinine and Glomerular filtration rate.predicted panel (S/P/Bld)82 mL/min/1.73m???Normal>=60[facility] on above:Order Comment: Specimen Type: BLOOD SPECIMENOrdering Facility: [facility] [place] Address:[address] [place], [place] [address]Result Comment: Estimated Glomerular Filtration Rate (eGFR) is calculated using the 2020 CKD-EPI creatinine equation. This equation utilizes serum creatinine, sex, and age as parameters. The creatinine assay has traceable calibration to isotope dilution-mass spectrometry. Refer to KDIGO guidelines for clinical interpretation. In patients with unstable renal function, e.g. those with acute kidney injury, the eGFR may not accurately reflect actual GFR.Performed By: #### 49471-2, HSTNT ####[facility] LABCLIA [id number] [address] [address] [place] AMERICAGlucose [Mass/Vol]94 mg/iMVtbypz62-58FbmkakwmoWvumedicine [facility] Comment on above:Order Comment: Specimen Type: BLOOD SPECIMENOrdering Facility: [facility] [place] Address:[address] [place] [id number] Comment: The [place] Diabetes Association (ADA) provides guidance for cutoff [...] Standards of Medical Care in Diabetes 2016, [place] Diabetes Association. Diabetes Care. 2016.39(Suppl 1).Performed By: #### 19004-3, HSTNT ####[facility] LABCLIA [id number] [address] [address] [place] AMERICAPotassium [Moles/Vol]4.3 mmol/LNormal3.7-5.1CSelect Medical TriHealth Rehabilitation HospitalComment on above:Order Comment: Specimen Type: BLOOD SPECIMENOrdering Facility: [facility] [place] Address:[address] [place], [place] [address]Aeovgfzdj By: #### 10678-8, HSTNT ####[facility] LABCLIA [id number] [address] [address] [place] Sodium [Moles/Vol]140 mmol/CJpxoxe499-904KusbuawrqKet[facility] Health [facility] on above:Order Comment: Specimen Type: BLOOD SPECIMENOrdering Facility: [facility] [place] Address:[address] [place], [place] [address]Performed By: #### 47634-7, HSTNT ####[facility] LABCLIA [id number] [address] [place] [facility] [place] AMERICAUrea nitrogen [Mass/Vol]16 mg/dLNormal9-24[facility] on above:Order Comment: Specimen Type: BLOOD SPECIMENOrdering Facility: [facility] [place] Address:[address] [place], [place] [address]Performed By: #### 40095- 2, HSTNT ####[facility] LABCLIA [id number] [place] [address] [place] PREMIER HEALTHCBC panel Auto (Bld)on 73-64-9718Nkthvykvlwq distribution width (RBC) [Ratio]13.0 %Dphlvs98.5-15.0 [facility] on above:Order Comment: Specimen Type: BLOOD SPECIMENOrdering Facility: [facility] [place] Address:[address] [place], [place] [address]Performed By: #### 24367-6 ####[facility] LABIA [id number] [place] [address] [place] PREMIER HEALTHHematocrit (Bld) [Volume fraction]39.7 %Fskvaz88.0-51.0[facility] on above:Order Comment: Specimen Type: BLOOD SPECIMENOrdering Facility: [facility] [place] Address:[address] [place], [place] [address]Performed By: #### 10792-0 ####[facility] LABIA [id number] [place] [address] [place] Hemoglobin (Bld) [Mass/Vol]13.0 g/vJBnwzur35.0-17.0[facility] Comment on above:Order Comment: Specimen Type: BLOOD SPECIMENOrdering Facility: [facility] [place] Address:[address] [place] [address] Performed By: #### 71619-8 ####[facility] LABIA [id number] [place] [address] [place] MCH (RBC) [Entitic mass]31.5 zlOahyuw54.0-34.0[facility] on above:Order Comment: Specimen Type: BLOOD SPECIMENOrdering Facility: [facility] [place] Address:[address] [place] [address] Performed By: #### 27917-1 ####[facility] LABIA [id number] [place] [address] [place] MCHC (RBC) [Mass/Vol]32.7 g/yOHeabfz95.5-36.0[facility] on above:Order Comment: Specimen Type: BLOOD SPECIMENOrdering Facility: [facility] [place] Address:[address] [place] [address] Performed By: #### 27853-8 ####[facility] LABIA [id number] [place] [address] [place] MCV (RBC) [Entitic vol]96.1 cVPodcle65.0-100.0[facility] on above:Order Comment: Specimen Type: BLOOD SPECIMENOrdering Facility: [facility] [place] Address:[address] [place] [address] Performed By: #### 33298-2 ####[facility] LABIA [id number] [place] [address] [place] Nucleated RBC (Bld) [#/Vol]10*3/uLNormal<0.01[facility] on above:Order Comment: Specimen Type: BLOOD SPECIMENOrdering Facility: [facility] [place] Address:[address] [place] [address] Performed By: #### 79002-9 ####[facility] LABIA [id number] [place] [address] [place] Platelet mean volume (Bld) [Entitic vol]10.4 fLNormal9.0-12.7CThe [facility] on above:Order Comment: Specimen Type: BLOOD SPECIMENOrdering Facility: [facility] [place] Address:[address] [place], [place] [address]Performed By: #### 57220-3 ####[facility] LABIA [id number] [place] [address] [place] Platelets (Bld) [#/Vol]320 10*3/kALqegbw073-404RuvwkbqefKet[facility] Health [facility] on above:Order Comment: Specimen Type: BLOOD SPECIMENOrdering Facility: [facility] [place] Address:[address] [place] [address] Performed By: #### 85174-9 ####[facility] [id number] [place] [address] [place] RBC (Bld) [#/Vol]4.13 10*6/uLLow4.20-6.00[facility] on above:Order Comment: Specimen Type: BLOOD SPECIMENOrdering Facility: [facility] [place] Address:[address] [place], [place] [address]Performed By: #### 07153-1 ####[facility] [id number] [place] [address] [place] AMERICAWBC (Bld) [#/Vol]9.89 10*3/uLNormal3.70-11.00[facility] on above:Order Comment: Specimen Type: BLOOD SPECIMENOrdering Facility: [facility] [place] Address:[address] [place], [place] [address]Performed By: #### 85655-4 ####[facility] LAB[facility] [id number] [place] [address] [place] AMERICAHIGH SENSITIVITY TROPONIN Ton 18-11-9449Oaecnefh T.cardiac High sensitivity method [Mass/Vol]25 ng/LHigh<12 [facility] HospitalComment on above:Order Comment: Specimen Type: BLOOD SPECIMENOrdering Facility: [facility] [place] Address:[address] [place], [place] [address]Performed By: #### 31318-8, HSTNT ####[facility] LABCLIA [id number] [facility] [id number] STATES OF CITIZEN OF VANUATUURSCLOVER HILL HOSPITAL PROGon 49-74-7686YHBFYKW PROGNormalMetrohealth [facility] Cleclevel[facility] hospitalNURSING PROGNormalWvumedicine Harrison Community HospitalXR CERVICAL 2V AP/LATon 88-63-3315DK CERVICAL 2V AP/LATNormalCSelect Medical TriHealth Rehabilitation HospitalAPAP SerPl-mCncon 86-43-5725Hensaclxxupmf [Mass/Vol]ug/yEBgt02-58TvhppdlqqWvumedicine [facility] Comment on above:Order Comment: Specimen Type: BLOOD SPECIMENOrdering Facility: [facility] [place] Address:[address] [place], [place] [address]Result Comment: Toxic > 150 ug/mL 4 hours post ingestionThe Anahi Terrell nomogram can be used to estimate the probability of hepatotoxicity via the relationship of plasma acetaminophen concentration to the post ingestion interval. (Greg. Pediatrics. 1975. 55:871 to 876 and Anahiet al. Arch Housefellow Med. 1981. 141:380 to 385).Reference ranges and high/low indicator flags are provided as general guidelines only. The treating physician must determine appropriate target levels/dosing based on the specific clinical situation.Performed By: #### 3298-7 ####[facility] LABCLIA [id number] [facility] HOSPITALLORJGRLPBHM04[place]ABBT[place], [place] [address] [place] AMERICABasic metabolic 2000 panelon 32-58-4101Qykoy gap [Moles/Vol]9 mmol/LNormal8-15[facility] on above:Order Comment: Specimen Type: BLOOD SPECIMENOrdering Facility: [facility] [place] Address:[address] [place], [place] [address]Performed By: #### 79821-8 ####[facility] LABCLIA [id number] [address] [address] [place] Calcium [Mass/Vol]9.4 mg/dLNormal8.5-10.2CThe [facility] on above:Order Comment: Specimen Type: BLOOD SPECIMENOrdering Facility: [facility] [place] Address:[address] [place], [place] [address]Performed By: #### 51113-5 ####[facility] LABCLIA [id number] [place] [id number] [place] AMERICAChloride [Moles/Vol] 106 mmol/NQytyyw60-959SqmgqoswpKettering Health [facility] on above:Order Comment: Specimen Type: BLOOD SPECIMENOrdering Facility: [facility] [place] Address:[address] [place], [place] [address]Performed By: #### 66780-1 ####[facility] LABCLIA [id number] [place] [address] [place] AMERICACO2 [Moles/Vol]27 mmol/LNormal 22-30[facility] on above:Order Comment: Specimen Type: BLOOD SPECIMENOrdering Facility: [facility] [place] Address:[address] [place], [place] [address]Performed By: #### 68270-1 ####[facility] LABCLIA [id number] [place] [id number] [place] AMERICACreatinine [Mass/Vol]1.07 mg/dLNormal0.73-1.22[facility] on above:Order Comment: Specimen Type: BLOOD SPECIMENOrdering Facility: [facility] [place] Address:[address] [place], [place] [address]Performed By: #### 19775-0 ####[facility] LABCLIA [id number] [place] [id number] [place] Creatinine and Glomerular filtration rate.predicted panel (S/P/Bld)76 mL/min/1.73m???Normal>=60[facility] on above:Order Comment: Specimen Type: BLOOD SPECIMENOrdering Facility: [facility] [place] Address:[address] [place] [id number] Comment: Estimated Glomerular Filtration Rate (eGFR) is [...] not accurately reflect actual GFR.Performed By: #### 66396-7 ####[facility] LABCLIA [id number] [place] [id number] [place] AMERICAGlucose [Mass/Vol]98 mg/dLNormal 74-99[facility] on above:Order Comment: Specimen Type: BLOOD SPECIMENOrdering Facility: [facility] [place] Address:[address] [place], [place] [address]Result Comment: The [place] Diabetes Association (ADA) provides guidance for cutoff [...] Standards of Medical Care in Diabetes 2016, [place] Diabetes Association. Diabetes Care. 2016.39(Suppl 1).Performed By: #### 88242-7 ####[facility] LABIA [id number] [place] [id number] [place] AMERICAPotassium [Moles/Vol]4.3 mmol/L Normal3.7-5.1CThe [facility] on above:Order Comment: Specimen Type: BLOOD SPECIMENOrdering Facility: [facility] [place] Address:[address] [place], [place] [address]Performed By: #### 16069-7 ####[facility] LABIA [id number] [place] [id number] [place] PREMIER HEALTHSodium [Moles/Vol]142 mmol/RGngsbe137-036PymrvblnlWvumedicine Harrison Community HospitalCompromedica monroe regional hospital on above:Order Comment: Specimen Type: BLOOD SPECIMENOrdering Facility: [facility] [place] Address:[address] [place], [place] [address]Performed By: #### 73901-7 ####[facility] LABIA [id number] [place] [address] [place] AMERICAUrea nitrogen [Mass/Vol]12 mg/dLNormal9-24[facility] Comment on above:Order Comment: Specimen Type: BLOOD SPECIMENOrdering Facility: [facility] [place] Address:[address] [place] [address] Performed By: #### 71184-9 ####[facility] LABIA [id number] [place] [address] [place] CBC panel Auto (Bld)on 68-29-1353Axnfuxrwgto distribution width (RBC) [Ratio] 13.5 %Fupkwi06.5-15.0[facility] on above:Order Comment: Specimen Type: BLOOD SPECIMENOrdering Facility: [facility] [place] Address:[address] [place], [place] [address]Performed By: #### 35257-9 ####[facility] LABIA [id number] [place] [id number] [place] AMERICAHematocrit (Bld) [Volume fraction]38.8 %Low39.0-51.0[facility] on above:Order Comment: Specimen Type: BLOOD SPECIMENOrdering Facility: [facility] [place] Address:[address] [place], [place] [address]Performed By: #### 34789- 2 ####[facility] LABIA [id number] [address] STREETHemoglobin (Bld) [Mass/Vol]12.2 g/dLLow13.0-17.0[facility] on above:Order Comment: Specimen Type: BLOOD SPECIMENOrdering Facility: [facility] [place] Address:[address] [place], [place] [address]Performed By: #### 07091-3 ####[facility] LABIA [id number] [address] (RBC) [Entitic mass]31.1 pg Jsspsa16.0-34.0[facility] on above:Order Comment: Specimen Type: BLOOD SPECIMENOrdering Facility: [facility] [place] Address:[address] [place], [place] [address]Performed By: #### 53872-4 ####[facility] LAB[facility] [id number] [address]HC (RBC) [Mass/Vol]31.4 g/dL Nlsdcg71.5-36.0[facility] on above:Order Comment: Specimen Type: BLOOD SPECIMENOrdering Facility: [facility] [place] Address:[address] [place], [place] [address]Performed By: #### 59236-0 ####[facility] LABIA [id number] [address]V (RBC) [Entitic vol]99.0 fL Ikvgnq21.0-100.0[facility] on above:Order Comment: Specimen Type: BLOOD SPECIMENOrdering Facility: [facility] [place] Address:[address] [place], [place] [address]Performed By: #### 02591-1 ####[facility] LABIA [id number] [address] RBC (Bld) [#/Vol] 10*3/uLNormal<0.01[facility] on above:Order Comment: Specimen Type: BLOOD SPECIMENOrdering Facility: [facility] [place] Address:[address] [place], [place] [address]Performed By: #### 96798-5 ####[facility] LABCLIA [id number] [address] [address] [place] AMERICAPlatelet mean volume (Bld) [Entitic vol]10.2 fLNormal9.0-12.7CThe [facility] on above: Order Comment: Specimen Type: BLOOD SPECIMENOrdering Facility: [facility] [place] Address:[address] [place], [place] [address]Performed By: #### 73565- 2 ####[facility] LABCLIA [id number] [place] [address] [place] AMERICAPlatelets (Bld) [#/Vol]239 10*3/qODgxrsd237-796DkmqxnrwgKettering Health [place] on above:Order Comment: Specimen Type: BLOOD SPECIMENOrdering Facility: [facility] [place] Address:[address] [place], [place] [address]Performed By: #### 19750-0 ####[facility] LABCLIA [id number] [place] [address] [place] AMERICARBC (Bld) [#/Vol]3.92 10*6/uLLow 4.20-6.00[facility] on above:Order Comment: Specimen Type: BLOOD SPECIMENOrdering Facility: [facility] [place] Address:[address] [place], [place] [address]Performed By: #### 98348-2 ####[facility] LABCLIA [id number] [place] [id number] [place] AMERICAWBC (Bld) [#/Vol]10.60 10*3/uLNormal3.70-11.00[facility] on above:Order Comment: Specimen Type: BLOOD SPECIMENOrdering Facility: [facility] [place] Address:[address] [place], [place] [address]Performed By: #### 42455-4 ####[facility] LABCLIA [id number] [place] [address] [place] AMERICAHepatic function 2000 panelon 07-81-4926Ywvdbab [Mass/Vol]4.0 g/dLNormal 3.9-4.9CThe [facility] on above:Order Comment: Specimen Type: BLOOD SPECIMENOrdering Facility: [facility] [place] Address:[address] [place], [place] [address]Performed By: #### 83416-2 ####[facility] LABCLIA [id number] [place] [address] [place] AMERICAALP [Catalytic activity/Vol]62 U/FWcahzi14-591DgzsrvcggKettering Health [place] on above:Order Comment: Specimen Type: BLOOD SPECIMENOrdering Facility: [facility] [place] Address:[address] [place], [place] [address]Performed By: #### 33728-3 ####[facility] LABCLIA [id number] [place] [address] [place] ALT [Catalytic activity/Vol]9 U/BAkj34-78CphbwhbyqKettering Health [place] on above:Order Comment: Specimen Type: BLOOD SPECIMENOrdering Facility: [facility] [place] Address:[address] [place], [place] [address]Performed By: #### 68659-1 ####[facility] LABCLIA [id number] [place] [id number] [place] AMERICAAST [Catalytic activity/Vol]26 U/KGdnpmn62-05RamriuacsKettering Health [place] on above:Order Comment: Specimen Type: BLOOD SPECIMENOrdering Facility: [facility] [place] Address:[address] [place], [place] [address]Performed By: #### 12723- 3 ####[facility] LABCLIA [id number] [place] [id number] [place] AMERICABilirubin [Mass/Vol]0.5 mg/dL Normal0.2-1.3C[facility] on [facility]:Order Comment: Specimen Type: BLOOD SPECIMENOrdering Facility: [facility] [place] Address:[address] [place], [place] [address]Performed By: #### 72926-3 ####[facility] LABCLIA [id number] [place] [address] [place] AMER[place]ABilirubin.conjugated [Mass/Vol]0.2 mg/dLNormal<0.3 [facility] on above:Order Comment: Specimen Type: BLOOD SPECIMENOrdering Facility: [facility] [place] Address:[address] [place], [place] [address]Performed By: #### 09666-0 ####[facility] LABCLIA [id number] [place] [address] [place]Protein [Mass/Vol]6.0 g/dLLow6.3-8.0[facility] on above:Order Comment: Specimen Type: BLOOD SPECIMENOrdering Facility: [facility] [place] Address:[address] [place], [place] [address]Performed By: #### [id number] ####[facility] LABCLIA [id number] [place] [address] [place] AMERICATHERAPY NTon 23-84-5956HBSBDUQ NTNormalCnationwide children's hospitaland [facility] Medical CenterXR CERVICAL 2V AP/LATon 33-50-5370HN CERVICAL 2V AP/LATNormalCSelect Medical TriHealth Rehabilitation HospitalBasic metabolic 2000 panelon 01-43-4954Qdpku gap [Moles/Vol]14 mmol/LNormal8-15[facility] on above:Order Comment: Specimen Type: BLOOD SPECIMENOrdering Facility: [facility] [place] Address:[address] [place], [place] [address]Performed By: #### 77761-3 ####[facility] LABCLIA [id number] [address] [place] [address] [place] Calcium [Mass/Vol]9.5 mg/dLNormal8.5-10.2CThe [facility] on above:Order Comment: Specimen Type: BLOOD SPECIMENOrdering Facility: [facility] [place] Address:[address] [place], [place] [address]Performed By: #### 26639-4 ####[facility] LABCLIA [id number] [address] [place] [address] [place] OF AMERICAChloride [Moles/Vol] 103 mmol/OWsruxz38-286EwfdjxlyxKettering Health [facility] on above:Order Comment: Specimen Type: BLOOD SPECIMENOrdering Facility: [facility] [place] Address:[address] [place], [place] [address]Performed By: #### 09282-0 ####[facility] LABCLIA [id number] [place] [id number] [place] AMERICACO2 [Moles/Vol]23 mmol/LNormal 22-30[facility] on above:Order Comment: Specimen Type: BLOOD SPECIMENOrdering Facility: [facility] [place] Address:[address] [place], [place] [address]Performed By: #### 22311-1 ####[facility] LABCLIA [id number] [address] [address] [place] AMERICACreatinine [Mass/Vol]0.88 mg/dLNormal0.73-1.22[facility] on above:Order Comment: Specimen Type: BLOOD SPECIMENOrdering Facility: [facility] [place] Address:[address] [place], [place] [address]Performed By: #### 26557-8 ####[facility] LABCLIA [id number] [place] [id number] [place] Creatinine and Glomerular filtration rate.predicted panel (S/P/Bld)94 mL/min/1.73m???Normal>=60[facility] on above:Order Comment: Specimen Type: BLOOD SPECIMENOrdering Facility: [facility] [place] Address:[address] [place], [place] [address]Result Comment: Estimated Glomerular Filtration Rate (eGFR) is [...] not accurately reflect actual GFR.Performed By: #### 94831-7 ####[facility] LABCLIA [id number] [place] [id number] [place] AMERICAGlucose [Mass/Vol]135 mg/dLHigh 74-99[facility] on above:Order Comment: Specimen Type: BLOOD SPECIMENOrdering Facility: [facility] [place] Address:[address] [place], [place] [address]Result Comment: The [place] Diabetes Association (ADA) provides guidance for cutoff [...] Standards of Medical Care in Diabetes 2016, [place] Diabetes Association. Diabetes Care. 2016.39(Suppl 1).Performed By: #### 94616-7 ####[facility] LABIA [id number] [place] [id number] [place] OF AMERICAPotassium [Moles/Vol]4.2 mmol/L Normal3.7-5.1CThe [facility] on above:Order Comment: Specimen Type: BLOOD SPECIMENOrdering Facility: [facility] [place] Address:[address] [place], [place] [address]Performed By: #### 28617-9 ####[facility] LABCLIA [id number] [place] [address] [place] AMERICASodium [Moles/Vol]140 mmol/XAqlxoc461-119OanahibfzKettering Health [facility] on above:Order Comment: Specimen Type: BLOOD SPECIMENOrdering Facility: [facility] [place] Address:[address] [place], [place] [address]Performed By: #### 32140-6 ####[facility] LABCLIA [id number] [place] [address] [place] AMERICAUrea nitrogen [Mass/Vol]15 mg/dLNormal9-24[facility] Comment on above:Order Comment: Specimen Type: BLOOD SPECIMENOrdering Facility: [facility] [place] Address:[address] [place] [address] Performed By: #### 04482-1 ####[facility] LABIA [id number] [place] [address] [place] CASE MGT INIT ASSESon 21-94-9464GRGP MGT INIT [facility] panel Auto (Bld)on 07-54-1025Dtnwkeskdrj distribution width (RBC) [Ratio]13.0 %Hljmtk31.5-15.0[facility] on above:Order Comment: Specimen Type: BLOOD SPECIMENOrdering Facility: [facility] [place] Address:[address] [place], [place] [address]Performed By: #### 12109- 2 ####[facility] LABIA [id number] [place] [id number] [place] OF AMERICAHematocrit (Bld) [Volume fraction]37.5 %Low39.0-51.0[facility] on above:Order Comment: Specimen Type: BLOOD SPECIMENOrdering Facility: [facility] [place] Address:[address] [place], [place] [address]Performed By: #### 48380- 2 ####[facility] LABIA [id number] [address] STREETHemoglobin (Bld) [Mass/Vol]12.4 g/dLLow13.0-17.0[facility] on above:Order Comment: Specimen Type: BLOOD SPECIMENOrdering Facility: [facility] [place] Address:[address] [place], [place] [address]Performed By: #### 04400-4 ####[facility] LABIA [id number] [address] (RBC) [Entitic mass]31.2 pg Mxbgrv56.0-34.0[facility] on above:Order Comment: Specimen Type: BLOOD SPECIMENOrdering Facility: [facility] [place] Address:[address] [place], [place] [address]Performed By: #### 89715-6 ####[facility] [id number] [address]HC (RBC) [Mass/Vol]33.1 g/dL Gxyqez33.5-36.0[facility] on above:Order Comment: Specimen Type: BLOOD SPECIMENOrdering Facility: [facility] [place] Address:[address] [place], [place] [address]Performed By: #### 32428-4 ####[facility] LABNOR[facility] [id number] [address] STREETV (RBC) [Entitic vol]94.5 fL Fyoedx66.0-100.0[facility] on above:Order Comment: Specimen Type: BLOOD SPECIMENOrdering Facility: [facility] [place] Address:[address] [place], [place] [address]Performed By: #### 29079-5 ####[facility] LABNORTH COUNTRY HOSPITAL [id number] [address]ETucleated RBC (Bld) [#/Vol] 10*3/uLNormal<0.01[facility] on above:Order Comment: Specimen Type: BLOOD SPECIMENOrdering Facility: [facility] [place] Address:[address] [place], [place] [address]Performed By: #### 58451-4 ####[facility] LABCLIA [id number] [place] [address] [place] AMERICAPlatelet mean volume (Bld) [Entitic vol]10.4 fLNormal9.0-12.7CThe [facility] on above: Order Comment: Specimen Type: BLOOD SPECIMENOrdering Facility: [facility] [place] Address:[address] [place], [place] [address]Performed By: #### 86264- 2 ####[facility] LABCLIA [id number] [place] [address] [place] AMERICAPlatelets (Bld) [#/Vol]266 10*3/qFRvannn274-501KrkrypomnKettering Health [facility] on above:Order Comment: Specimen Type: BLOOD SPECIMENOrdering Facility: [facility] [place] Address:[address] [place], [place] [address]Performed By: #### 66536-1 ####[facility] LABCLIA [id number] [place] [address] [place] AMERICARBC (Bld) [#/Vol]3.97 10*6/uLLow 4.20-6.00[facility] on above:Order Comment: Specimen Type: BLOOD SPECIMENOrdering Facility: [facility] [place] Address:[address] [place], [place] [address]Performed By: #### 25550-8 ####[facility] LABCLIA [id number] [place] [id number] [place] AMERICAWBC (Bld) [#/Vol]13.37 10*3/uLHigh3.70-11.00[facility] on above:Order Comment: Specimen Type: BLOOD SPECIMENOrdering Facility: [facility] [place] Address:[address] [place], [place] [address]Performed By: #### 01274-3 ####[facility] LABCLIA [id number] YAYA PAYNE [id number] [place] [address] [place] AMERICATHERAPY NTon 95-80-6255YALIUVV NTNormalCnationwide children's hospitaland [facility] CenterANES POSTPROC EVALon 99-17-1325OWFC POSTPROC EVALNormalCnationwide children's hospitaland [facility] CenterANES PRE-OPon 07-93-8566MBEL PRE-OPNormalWvumedicine Harrison Community HospitalBRIEF OP NOTon 43-39-9583UGQMR OP NOTNormalCSelect Medical TriHealth Rehabilitation HospitalOPERATIVE NOon 06-02-2024 OPERATIVE NONormalWvumedicine Harrison Community HospitalXR CERVICAL SPECIFY 1Von 06-02-2024 XR CERVICAL SPECIFY 1VNormalCSelect Medical TriHealth Rehabilitation HospitalXR VERIFY LEVEL C-SPINE-NB on 11-65-1829HB VERIFY LEVEL O-CAUNY-DBQsdymuBlkxexgpz Clinic ClevelandCT Cervical spine WO contraston 33-29-4105ZHLRCLRXMU: Developmental cervical canal stenosis with superimposed degenerative changes that are most prominent at C5-6 where there is severe cord compression. Multilevel bony foraminal narrowing as detailed above. Anatomic Variant: None. Assume 7 cervical vertebrae with counting from the craniocervical junction. Card Cleaner: CITLALLI Transcribe Date/Time: May 16 2024 7:44A Dictated by : DOMENIC FORD MD This examination was interpreted and the report reviewed and electronically signed by: DOMENIC FORD MD on May 16 2024 7:54AM [facility] RADIOLOGY SYNGO* * *Final Report* * * DATE OF EXAM: May 14 2024 9:37AM [facility] [address] - CT CERVICAL SPINE WO IVCON [...] Counting reference: Craniocervical junction. Anatomic Variants: None. Keying Machine Operator (topogram) images: No additional findings. Alignment: There [...] degenerative changes cause mild bilateral foraminal stenosis. DRIFTING RADIOLOGY SYNGOProvider, [facility] [place] - 05/16/2024 * * *Final Report* * * DATE OF EXAM: May 14 2024 9:37AM [facility] [address] - CT CERVICAL SPINE WO IVCON [...] Counting reference: Craniocervical junction. Anatomic Variants: None. Keying Machine Operator (topogram) images: No additional findings. Alignment: There [...] vertebrae with counting from the craniocervical junction. Card Cleaner: PSCB Transcribe Date/Time: May 16 2024 7:44A Dictated by : DOMENIC FORD MD This examination was interpreted and the report reviewed and electronically signed by: DOMENIC FORD MD on May 16 2024 7:54AM EST [facility] Cervical spine WO contrastOrdered By: Ccf Provider on 10-23-1090Yjgeidhua ClinicCT CERVICAL SPINE WO IVCONon 37-39-5429FP CERVICAL SPINE WO IVCON* * *Final Report* * * DATE OF EXAM: May 14 2024 9:37AM [facility] [address] - CT CERVICAL SPINE WO IVCON [...] Counting reference: Craniocervical junction. Anatomic Variants: None. Keying Machine Operator (topogram) images: No additional findings. Alignment: There [...] vertebrae with counting from the craniocervical junction. Card Cleaner: CITLALLI Transcribe Date/Time: May 16 2024 7:44A Dictated by : DOMENIC FORD MD This examination was interpreted and the report reviewed and electronically signed by: DOMENIC FORD MD on May 16 2024 7:54AM EST [id number] HospitalCT Cervical spine WO contraston 12-06-1272Tjlmarzzc Study observation (narrative)[facility] Basic metabolic 2000 panelon 47-10-5847Pnomy gap [Moles/Vol]11 mmol/L8 - 15 mmol/LCleveland ClinicCalcium [Mass/Vol]9.8 mg/dL8.5 - 10.2 mg/dLMercy Health Lorain Hospitalveland ClinicChloride [Moles/Vol]99 mmol/L98 - 107 mmol/LCleveland ClinicCO2 [Moles/Vol]28 mmol/L22 - 30 mmol/LCleveland ClinicCreatinine [Mass/Vol]0.91 mg/dL0.73 - 1.22 mg/dLMetrohealth Cleveland Heights Medical CenterGFR/1.73 sq M.predicted among non-blacks MDRD (S/P/Bld) [Vol rate/Area]92 mL/min/{1.73_m2}- PINFCKettering Health Greene Memorial on above:Estimated Glomerular Filtration Rate (eGFR) is calculated using the 2020 CKD-EPI creatinine equation. This equation utilizes serum creatinine, sex, and age as parameters. The creatinine assay has traceable calibration to isotope dilution-mass spectrometry. Refer to KDIGO guidelines for clinical inte rpretation. In patients with unstable renal function, e.g. those with acute kidney injury, the eGFRmay not accurately reflect actual GFR.Glucose [Mass/Vol] 120 mg/xSPygt16 - 99 mg/dLLima City Hospital on above:The [place] Diabetes Association (ADA) provides guidance for cutoff [...] Standards of Medical Care in Diabetes 2016, [place] Diabetes Association. Diabetes Care. 2016.39(Suppl 1). Interpretation and review of laboratory resultsAbnormalCleveland ClinicPotassium [Moles/Vol]4.4 mmol/L3.7 - 5.1 mmol/LCleveland ClinicSodium [Moles/Vol]138 mmol/L136 - 144 mmol/LCleveland ClinicUrea nitrogen [Mass/Vol]23 mg/dL9 - 24 mg/dLFulton County Health CenterAnion gap [Moles/Vol]11 mmol/LNormal8-15 [facility] on above:Order Comment: Specimen Type: BLOOD SPECIMENOrdering Facility: [facility] [place] Address:[address] [place], [place] [address]Performed By: #### 91456-7, 04082-1, 2275-06 ####[facility] LABCLIA [id number] [address] [address] [place] AMERICACalcium [Mass/Vol]9.8 mg/dLNormal8.5-10.2CThe [facility] on above:Order Comment: Specimen Type: BLOOD SPECIMENOrdering Facility: [facility] [place] Address:[address] [place], [place] [address]Performed By: #### 00359-6, 10427-3, 2275-06 ####[facility] LABCLIA [id number] [address] [place] AMERICAChloride [Moles/Vol]99 mmol/LAotevh14-444EsqwofbhtKettering Health [facility] on above:Order Comment: Specimen Type: BLOOD SPECIMENOrdering Facility: [facility] [place] Address:[address] [place], [place] [address]Performed By: #### 09452-6, 15650-8, 2275-06 ####[facility] LABCLIA [id number] VILLE [id number] [place] AMERICACO2 [Moles/Vol]28 mmol/HDlaaxi48-50FohxzprmvKettering Health Miamisburg on above:Order Comment: Specimen Type: BLOOD SPECIMENOrdering Facility: [facility] [place] Address:[address] [place], [place] [address]Performed By: #### 90566-8, 97945-8, 2275-06 ####[facility] LABCLIA [id number] [address] [place] AMERICACreatinine [Mass/Vol]0.91 mg/dLNormal0.73-1.22 [facility] on above:Order Comment: Specimen Type: BLOOD SPECIMENOrdering Facility: [facility] [place] Address:[address] [place], [place] [address]Performed By: #### 70112-5, 12663-3, 2275-06 ####[facility] LABCLIA [id number] [address] [place] AMERICACreatinine and Glomerular filtration rate.predicted panel (S/P/Bld)92 mL/min/1.73m???Normal>=60[facility] on above:Order Comment: Specimen Type: BLOOD SPECIMENOrdering Facility: [facility] [place] Address:[address] [place], [place] [address]Result Comment: Estimated Glomerular Filtration Rate (eGFR) is [...] accurately reflect actual GFR. Performed By: #### 08391-0, 66955-6, 6-4 ####[facility] [id number] [address] [place] AMERICAGlucose [Mass/Vol]120 mg/vWBzxc60-03NybhwlbouKettering Health [facility]burg on above:Order Comment: Specimen Type: BLOOD SPECIMENOrdering Facility: [facility] [place] Address:[address] [place], [place] [address]Result Comment: The [place] Diabetes Association (ADA) provides guidance for cutoff [...] Standards of Medical Care in Diabetes 2016, [place] Diabetes Association. Diabetes Care. 2016.39(Suppl 1).Performed By: #### 84141-3, 73587-8, 2276-4 ####[facility] LABIA [id number][place] [address] [place] AMERICAPotassium [Moles/Vol]4.4 mmol/LNormal3.7-5.1 [facility] on above:Order Comment: Specimen Type: BLOOD SPECIMENOrdering Facility: [facility] [place] Address:[address] [place], [place] [address]Performed By: #### 64513-3, 09563-6, 6-4 ####[facility] LABIA [id number] STATES OF PREMIER HEALTHSodium [Moles/Vol]138 mmol/HTlkefb581-129OpkezkzotKettering Health [facility]amisburg on above:Order Comment: Specimen Type: BLOOD SPECIMENOrdering Facility: [facility] [place] Address:[address] [place], [place] [address]Performed By: #### 71550-5, 04423-1, 2275-4 ####[facility] LABIA [id number] VILLE [id number] [place] STATES OF AMERICAUrea nitrogen [Mass/Vol]23 mg/dLNormal9-24 [facility] on above:Order Comment: Specimen Type: BLOOD SPECIMENOrdering Facility: [facility] [place] Address:[address] [place], [place] [address]Performed By: #### 09070-7, 26949-6, 2275-4 ####[facility] HOSPITALIA [id number] VILLE [id number] [place] [facility] PREMIER HEALTHCB W Auto Differential panel (Bld)on 05-12-2024 Basophils (Bld) [#/Vol]0.03 10*3/uLNormal<0.11CThe [facility] on above:Order Comment: Specimen Type: BLOOD SPECIMENOrdering Facility: [facility] [place] Address:[address] [place] [address] Performed By: #### 55408-3 ####[facility] LABIA [id number] [place] [id number] [place] Basophils/100 WBC (Bld)0.3 %NormalKettering Health [facility]amisburg on above: Order Comment: Specimen Type: BLOOD SPECIMENOrdering Facility: [facility] [place] Address:[address] [place], [place] [address]Performed By: #### 15200- 8 ####[facility] LABCLIA [id number] [place] [address] [place] AMERICADifferential cell count method Nom (Bld)AutoNormalCThe [facility] Hospital on above:Order Comment: Specimen Type: BLOOD SPECIMENOrdering Facility: [facility] [place] Address:[address] [place], [place] [address]Performed By: #### 94994-7 ####[facility] LABCLIA [id number] [place] [address] [place] AMERICAEosinophils (Bld) [#/Vol]10*3/uL Normal<0.46[facility] on above:Order Comment: Specimen Type: BLOOD SPECIMENOrdering Facility: [facility] [place] Address:[address] [place], [place] [address]Performed By: #### 24789-7 ####[facility] LABCLIA [id number] [address] STATES OF PREMIER HEALTHEosinophils/100 WBC (Bld)0.1 %NormalKettering Health Miamisburg on above:Order Comment: Specimen Type: BLOOD SPECIMENOrdering Facility: [facility] [place] Address:[address] [place], [place] [address]Performed By: #### 49784-3 ####[facility] LABIA [id number] [place] [address] [place] Erythrocyte distribution width (RBC) [Ratio]12.4 %Kgnakl59.5-15.0[facility] on above:Order Comment: Specimen Type: BLOOD SPECIMENOrdering Facility: [facility] [place] Address:[address] [place], [place] [address]Performed By: #### 52961-2 ####[facility] LABIA [id number] [place] [address] [place] AMERICAHematocrit (Bld) [Volume fraction]45.6 %Bxmzwr91.0-51.0[facility] on above:Order Comment: Specimen Type: BLOOD SPECIMENOrdering Facility: [facility] [place] Address:[address] [place], [place] [address]Performed By: #### 71526-3 ####[facility] LABIA [id number] [place] [address] [place] Hemoglobin (Bld) [Mass/Vol]14.9 g/yDBwjscp97.0-17.0[facility] Comment on above:Order Comment: Specimen Type: BLOOD SPECIMENOrdering Facility: [facility] [place] Address:[address] [place] [address] Performed By: #### 20018-2 ####[facility] LABIA [id number] [place] [address] [place] Immature granulocytes (Bld) [#/Vol]0.11 10*3/uLHigh<0.10[facility] on above:Order Comment: Specimen Type: BLOOD SPECIMENOrdering Facility: [facility] [place] Address:[address] [place], [place] [address]Performed By: #### 94706-6 ####[facility] LABIA [id number] [place] [address] [place] Immature granulocytes/100 WBC (Bld)1.3 %NormalKettering Health Miamisburg on above:Order Comment: Specimen Type: BLOOD SPECIMENOrdering Facility: [facility] [place] Address:[address] [place] [address] Performed By: #### 59206-3 ####[facility] LABIA [id number] [place] [address] [place] Lymphocytes (Bld) [#/Vol]0.83 10*3/uLLow1.00-4.00[facility] Comment on above:Order Comment: Specimen Type: BLOOD SPECIMENOrdering Facility: [facility] [place] Address:[address] [place] [address] Performed By: #### 24000-9 ####[facility] LABIA [id number] [place] [address] [place] Lymphocytes/100 WBC (Bld)9.5 %NormalKettering Health [facility]amisburg on above: Order Comment: Specimen Type: BLOOD SPECIMENOrdering Facility: [facility] [place] Address:[address] [place], [place] [address]Performed By: #### 50144- 8 ####[facility] LABIA [id number] [address] (RBC) [Entitic mass]31.0 pg Mkwecx94.0-34.0[facility] Centerment on above:Order Comment: Specimen Type: BLOOD SPECIMENOrdering Facility: [facility] [place] Address:[address] [place], [place] [address]Performed By: #### 21201-3 ####[facility] LABIA [id number] [address]ETMCHC (RBC) [Mass/Vol]32.7 g/dL Mfnzgc72.5-36.0[facility] on above:Order Comment: Specimen Type: BLOOD SPECIMENOrdering Facility: [facility] [place] Address:[address] [place], [place] [address]Performed By: #### [id number] ####[facility] LABIA [id number] [address] CHEN STREETV (RBC) [Entitic vol]94.8 fL Vgpbst48.0-100.0[facility] on above:Order Comment: Specimen Type: BLOOD SPECIMENOrdering Facility: [facility] [place] Address:[address] [place], [place] [address]Performed By: #### [id number] ####[facility] LABCLIA [id number] [place] [address] [place] AMERICAMonocytes (Bld) [#/Vol]0.26 10*3/uLNormal<0.87[facility] on above:Order Comment: Specimen Type: BLOOD SPECIMENOrdering Facility: [facility] [place] Address:[address] [place], [place] [address]Performed By: #### 58273-3 ####[facility] LABCLIA [id number] [place] [address] [place] AMERICAMonocytes/100 WBC (Bld)3.0 % NormalKettering Health [facility] on above:Order Comment: Specimen Type: BLOOD SPECIMENOrdering Facility: [facility] [place] Address:[address] [place], [place] [address]Performed By: #### 95854-3 ####[facility] LABIA [id number] [place] [address] [place] AMERICANeutrophils (Bld) [#/Vol]7.47 10*3/uLNormal1.45-7.50[facility] on above:Order Comment: Specimen Type: BLOOD SPECIMENOrdering Facility: [facility] [place] Address:[address] [place], [place] [address]Performed By: #### 19817-7 ####[facility] LABCLIA [id number] [place] [address] [place] AMERICANeutrophils/100 WBC (Bld)85.8 %NormalKettering Health [facility] on above:Order Comment: Specimen Type: BLOOD SPECIMENOrdering Facility: [facility] [place] Address:[address] [place] [address] Performed By: #### 18400-7 ####[facility] LABCLIA [id number] [place] [id number] [place] Nucleated RBC (Bld) [#/Vol]10*3/uLNormal<0.01[facility] on above:Order Comment: Specimen Type: BLOOD SPECIMENOrdering Facility: [facility] [place] Address:[address] [place] [address] Performed By: #### 63480-2 ####[facility] LABIA [id number] [place] [address] [place] Nucleated RBC/100 WBC (Bld) [Ratio]0.0 /100 WBCNormalCSelect Medical [facility] Rehabilitation [facility] Comment on above:Order Comment: Specimen Type: BLOOD SPECIMENOrdering Facility: [facility] [place] Address:[address] [place] [address] Performed By: #### 60071-5 ####[facility] LABIA [id number] [place] [address] [place] Platelet mean volume (Bld) [Entitic vol]10.0 fLNormal9.0-12.7CThe [facility] on above:Order Comment: Specimen Type: BLOOD SPECIMENOrdering Facility: [facility] [place] Address:[address] [place], [place] [address]Performed By: #### 75644-5 ####[facility] LABIA [id number] [place] [address] [place] Platelets (Bld) [#/Vol]394 10*3/tLMhjysh725-767AgxzwlsugKettering Health [facility] on above:Order Comment: Specimen Type: BLOOD SPECIMENOrdering Facility: [facility] [place] Address:[address] [place] [address] Performed By: #### 74919-0 ####[facility] LABIA [id number] [place] [address] [place] RBC (Bld) [#/Vol]4.81 10*6/uLNormal4.20-6.00[facility] on above:Order Comment: Specimen Type: BLOOD SPECIMENOrdering Facility: [facility] [place] Address:[address] [place], [place] [address]Performed By: #### 59237-5 ####[facility] LABCLIA [id number] [place] [address] [place] PREMIER HEALTHWBC (Bld) [#/Vol]8.71 10*3/uLNormal3.70-11.00[facility] on above:Order Comment: Specimen Type: BLOOD SPECIMENOrdering Facility: [facility] [place] Address:[address] [place], [place] [address]Performed By: #### 84164-5 ####[facility] LABCLIA [id number] [place] [address] [place] AMERICACNOVon 57-68-8553ZPOUFjptsw [facility] HospitalFerritin SerPl-mCncon 25-07-9829Ozywcayt [Mass/Vol] 204.0 ng/jHYinmdq15.3-565.7CThe [facility] on above:Order Comment: Specimen Type: BLOOD SPECIMENOrdering Facility: [facility] [place] Address:[address] [place], [place] [address]Performed By: #### 05389- 8, 19556-0, 2275-4 ####[facility] LABCLIA [id number], [place] [address] [place] AMERICAHISTORY PHYSICALon 92-99-5532DUXSGSJ PHYSICALNormalCSelect Medical TriHealth Rehabilitation HospitalIron and Iron binding capacity panelon 00-93-4276Oyvx [Mass/Vol]81 ug/iLCkybsn84-225PqpkcbjpkK[facility]tering Health [facility] on above:Order Comment: Specimen Type: BLOOD SPECIMENOrdering Facility: [facility] [place] Address:[address] [place], [place] [address]Performed By: #### 57435-7, 70883-5, 6-4 ####[facility] LABCLIA [id number] AVENUEDESK M17HRFIFLVGB, [place] [address] [place] AMERICAIron binding capacity [Mass/Vol]342 ug/bAQagxqf163-533UufzukomsKettering Health [facility] on above:Order Comment: Specimen Type: BLOOD SPECIMENOrdering Facility: [facility] [place] Address:[address] [place], [place] [address]Performed By: #### 84742-4, 41379-3, 2276-4 ####[facility] LABCLIA [id number] STATES OF AMERICAIron/TIBC [Molar ratio]23.7 %Jtjcci95.0-57.0 [facility] on above:Order Comment: Specimen Type: BLOOD SPECIMENOrdering Facility: [facility] [place] Address:[address] [place], [place] [address]Performed By: #### 78202-8, 91501-1, 6-4 ####[facility] LABCLIA [id number] STATES OF PREMIER HEALTHSTAPHYLOCOCCUS AUREUS AND MRSA SCREEN, PCR, NASAL on 05-12-2024S. aureus and MRSA panel BARBARA+probe (Nose)Not detectedNormalNot DetectedKettering Health [facility] on above:Order Comment: Specimen Type: SWABOrdering Facility: [facility] [place] Address: [address] [place], [place] [address]Performed By: #### SAPCR ####[facility] LABCLIA [id number] [place] [address] [place] AMERICATYPE AND SCREEN,30 DAYon 41-50-5052HXZ group Nom (Bld)OCTrinity Health System East Campus Blood group antibody screen QlNegativeMercy Health St. [facility]'s Medical [facility] Nom (Bld)Negative [facility] CenterABOONormalK[facility] on above:Order Comment: Specimen Type: BLOOD SPECIMENOrdering Facility: [facility] [place] Address:[address] [place], [place] [address]Performed By: #### [id number] ####[facility] BLOOD BANKCLIA [id number] [place] [address] [place] AMERICARh Nom (Bld)NegativeNormal [facility] HospitalComment on above:Order Comment: Specimen Type: BLOOD SPECIMENOrdering Facility: [facility] [place] Address:[address] [place], [place] [address]Performed By: #### [id number] ####CC MAIN BLOOD BANKCLIA [id number] [address]MR Cervical spine WO contraston 27-51-2742GIGMNOQLWM: Advanced multilevel degenerative canal stenoses, most pronounced [...] ALFONSO LOYD on 02/21/2024 5:11 PM via [employer] staff message. Card Cleaner: BlackbookHRAdonis Transcribe Date/Time: Feb 21 2024 4:44P Dictated by : KEVIN MASON MD This examination was interpreted and the report reviewed and electronically signed by: KEVIN MASON MD on Feb 21 2024 8:57PM [facility] DIVISION OF RADIOLOGY* * [...] facet hypertrophy DIVISION OF RADIOLOGYProvider, [facility] [place] - 02/21/2024 * * *Final Report* * [...] ALFONSO LOYD on 02/21/2024 5:11 PM via [employer] staff message. Card Cleaner: CITLALLI Transcribe Date/Time: Feb 21 2024 4:44P Dictated by : KEVIN MASON MD This examination was interpreted and the report reviewed and electronically signed by: KEVIN MASON MD on Feb 21 2024 8:57PM [facility] HospitalRadiology Study observation (narrative)[facility] CenterMR Cervical spine WO contrastOrdered By: Ccf Provider on 45-45-1914Mmfepykjn Clinic MRI CERVICAL SPINE WO IVCONon 66-25-6534IAR CERVICAL SPINE WO IVCONNormal [facility] HospitalCNPNon 35-01-8442BNZYZlvkrvFmibijvll [facility] [place] CNOVon 23-66-9659LWQBPbabhoHpzverfez Clinic Cleclevel[facility] clinic marymount hospitalCT LUMBAR SPINE WO IVCONon 74-02-2736JM LUMBAR SPINE WO IVCONNormalWvumedicine Harrison Community HospitalCT Lumbar spine WO contraston 84-98-8824RJSBQLFXNI: Interval L4-5 right facetectomy. Stable additional prior postoperative changes as described. Healing fracture along L5 pedicle screws. 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 Anatomic Lumbar Variant: Transitional L5 vertebral body. L4-5 is considered the level of the iliac crest and there are 5 lumbar-type vertebrae. Card Cleaner: CITLALLI Transcribe Date/Time: Jan 13 2024 9:06A Dictated by : MORGAN SANCHEZ MD This examination was interpreted and the report reviewed and electronically signed by: ADALBERTO MAYS MD on Jan 13 2024 11:37AM [facility] DIVISION OF RADIOLOGY* * *Final Report* * * DATE OF EXAM: Jan 13 2024 8:57AM [facility] [place] LUMBAR [...] vertebrae. Anatomic variant: Transitional L5 vertebral body. Keying Machine Operator (topogram) images: No additional findings. Alignment: There [...] are within normal limits. DIVISION OF RADIOLOGYProvider, [facility] [place] - 01/13/2024 * * *Final Report* * * DATE OF EXAM: Jan 13 2024 8:57AM [facility] [place] LUMBAR [...] vertebrae. Anatomic variant: Transitional L5 vertebral body. Keying Machine Operator (topogram) images: No additional findings. Alignment: There [...] crest and there are 5 lumbar-type vertebrae. Card Cleaner: CITLALLI Transcribe Date/Time: Jan 13 2024 9:06A Dictated by : MORGAN SANCHEZ MD This examination was interpreted and the report reviewed and electronically signed by: ADALBERTO MAYS MD on Jan 13 2024 11:37AM [facility] Lumbar spine WO contrastOrdered By: Ccf Provider on 79-63-3341Aydmvrprd ClinicEMG(NEURO/NI)on 95-79-8411Tptfpms can be seen in attached scanned documents. If you are a patient reviewing this test result, call the doctor who ordered the test with any questions. [facility] Lumbar spine WO contraston 01-13-2024* * *Final [...] are normal in appearance. DIVISION OF RADIOLOGYProvider, [facility] [place] - 01/13/2024 * * *Final Report* * [...] obtained if clinically judy (more content not included)...[facility] CenterRadiology Study observation (narrative)[facility] Thoracic spine WO contraston 01-13-2024* * *Final [...] are normal in appearance. DIVISION OF RADIOLOGYProvider, [facility] [place] - 01/13/2024 * * *Final Report* * [...] obtained if clinically a (more content not included)...[facility] LUMBAR SPINE WO IVCONon 58-24-3236QJS LUMBAR SPINE WO IVCONInvalid Interpretation CodeGrant Hospital THORACIC SPINE WO IVCONon 49-17-9486RCH THORACIC SPINE WO IVCON Invalid Interpretation CodeWhite Hospital Panel InformationOrdered By: Ccf Provider on 09-90-0144Smhrvyuyfynayk and review of laboratory results AbnormalMetrohealth Cleveland Heights Medical CenterRadiology ResultACTIONABLEAbnormalCTrinity Health System East Campus Comment on above:This report contains an incidental [...] the next steps. [facility] Panel Informationon 04-49-0297RVVCJDTCTG: * Susceptibility artifacts from posterior fusion hardware [...] days of report finalization. --END OF FINDING-- Card Cleaner: CITLALLI Transcribe Date/Time: Jan 13 2024 8:57A Dictated by : TWAN SANTO MD This examination was interpreted and the report reviewed and electronically signed by: TWAN SANTO MD on Jan 13 2024 3:52PM [facility] DIVISION OF RADIOLOGYRadiology Study observation (narrative)[facility] Medical CenterCNPN on 24-23-3418FHTESdrtfyBpvjpcnog Clinic ClevelandLon 75-09-2122QNptrokpg: BS24- 790 Received: 11/27/23 Status: CASANDRA Thurman Num: [id number] Spec Type: Surgical Subm Dr: Camryn Agustin MD FACS Tissues: A Colon Biopsy (CECAL COLON POLYP) Procedures: HE/2, Gross/Micro L4 Age/ Patient Sex Location Account Attending Physician Braden Rodriguez 68/M LABELL [id number] Camryn Agustin MD FACS SPEC NUM: [id number] RECD: 11/27/23 STATUS: CASANDRA THURMAN NUM: [id number] KIM: 11/26/[address]: Camryn Agustin MD FACS ENTERED: 11/27/23 [facility] DR: JavedLab SPEC TYPE: Surgical DEPT: ANI MCWILLIAMS ENTERED BY: [id number] RECV BY: [id number] ORDERED: HE/2, Gross/Micro L4 ORDERED: HE/2, Gross/Micro [...] cassette A1. CPT Codes 88 305 Specimen: [id number] Received: 11/27/23 Status: CASANDRA Jeanine Num: [id number] Spec Type: Surgical Subm Dr: Camryn Agustin MD FACS Tissues: A Colon Biopsy (CECAL COLON POLYP) Procedures: HE/Paulino, Gross/Micro L4 Patient: Braden Rodriguez [id number] (Continued) Signed (signature on file) Edward Byers MD 12/02/[address] [facility] Physician GroupCNOVon 52-53-6244DRFIRylpomYbuxxkhtl Clinic ClevelandXR LUMBAR 2V AP/LATon 38-48-7607ZN LUMBAR 2V AP/LATNormal [facility] HospitalXR Lumbar spine AP and Lateralon 22-05-2993RWWRSMWHBE: Intact spinal fusion hardware. Vertebral body heights and sagittal alignment are maintained. Card Cleaner: [facility] Transcribe Date/Time: Nov 12 2023 1:25P Dictated by : LONNIE HERNANDEZ MD This examination was interpreted and the report reviewed and electronically signed by: LONNIE HERNANDEZ MD on Nov 12 2023 1:25PM [facility] DIVISION OF RADIOLOGY* * [...] 09/10/2023. RESULT: See impression DIVISION OF RADIOLOGYProvider, [facility] [place] - 11/12/2023 * * *Final Report* * [...] body heights and sagittal alignment are maintained. Card Cleaner: [employer] Transcribe Date/Time: Nov 12 2023 1:25P Dictated by : LONNIE HERNANDEZ MD This examination was interpreted and the report reviewed and electronically signed by: LONNIE HERNANDEZ MD on Nov 12 2023 1:25PM EST [facility] CenterRadiology Study observation (narrative)[facility] Lumbar spine AP and LateralOrdered By: Ccf Provider on 19-18-7185Hgdnzkwwi ClinicCNPNon 52-28-8970GXKFScofrqNljyqxjyu Clinic ClevelandCNPNon 79-11-0985FTOXVlhshk [facility] HospitalCNCOon 45-96-4789DEEPQfvngt TextNormalCFisher-[facility] metabolic 2000 panelon 61-43-0479Fjuwi gap [Moles/Vol]10 mmol/L Normal8-15[facility] on above:Order Comment: Specimen Type: BLOOD SPECIMENOrdering Facility: [facility] [place] Address:[address] [place], [place] [address]Performed By: #### 91498-4 ####[facility] LABCLIA [id number] [place] [address] [place] AMERICACalcium [Mass/Vol]9.4 mg/dLNormal8.5-10.2CThe [facility] on above:Order Comment: Specimen Type: BLOOD SPECIMENOrdering Facility: [facility] [place] Address:[address] [place], [place] [address]Performed By: #### 12130-0 ####[facility] LABCLIA [id number] [address] [address] [place] AMERICAChloride [Moles/Vol]104 mmol/SLvpdno18-356OfvrbdkkjWvumedicine Harrison Community Hospital Comment on above:Order Comment: Specimen Type: BLOOD SPECIMENOrdering Facility: [facility] [place] Address:[address] [place] [address] Performed By: #### 49061-9 ####[facility] LABCLIA [id number] [address] [address] [place] CO2 [Moles/Vol]27 mmol/TAnfxiv81-44PowwzclzsKettering Health [facility] on above: Order Comment: Specimen Type: BLOOD SPECIMENOrdering Facility: [facility] [place] Address:[address] [place], [place] [address]Performed By: #### 60206- 2 ####[facility] LABIA [id number] [place] [address] [place] AMERICACreatinine [Mass/Vol]0.83 mg/dL Normal0.73-1.22[facility] on above:Order Comment: Specimen Type: BLOOD SPECIMENOrdering Facility: [facility] [place] Address:[address] [place], [place] [address]Performed By: #### 91648-3 ####[facility] LABIA [id number] [place] [address] [place] AMERICACreatinine and Glomerular filtration rate.predicted panel (S/P/Bld)97 mL/min/1.73m???Normal>=60[facility] on above:Order Comment: Specimen Type: BLOOD SPECIMENOrdering Facility: [facility] [place] Address:[address] [place], [place] [address]Result Comment: Estimated Glomerular Filtration Rate (eGFR) is calculated using the 2020 CKD-EPI creatinine equation. This equation utilizes serum creatinine, sex, and age as parameters. The creatinine assay has traceable calibration to isotope dilution-mass spectrometry. Refer to KDIGO guidelines for clinical interpretation. In patients with unstable renal function, e.g. those with acute kidney injury, the eGFR may not accurately reflect actual GFR.Performed By: #### 47304-0 ####[facility] LABIA [id number] [place] [address] [place] AMERICAGlucose [Mass/Vol]100 mg/wOQrea65-30SpxvxqchqKettering Health [facility] on above:Order Comment: Specimen Type: BLOOD SPECIMENOrdering Facility: [facility] [place] Address:[address] [place], [place] [address]Result Comment: The [place] Diabetes Association (ADA) provides guidance for cutoff [...] Standards of Medical Care in Diabetes 2016, [place] Diabetes Association. Diabetes Care. 2016.39(Suppl 1).Performed By: #### 03453-0 ####[facility] LABCLIA [id number] [place] [address] [place] PREMIER HEALTHPotassium [Moles/Vol]3.9 mmol/LNormal3.7-5.1CSelect Medical [facility] Comment on above:Order Comment: Specimen Type: BLOOD SPECIMENOrdering Facility: [facility] [place] Address:[address] [place] [address] Performed By: #### 47303-5 ####[facility] LABIA [id number] [address] [place] Sodium [Moles/Vol]141 mmol/LGmiiik006-994HqqxqenjaKettering Health [place] on above:Order Comment: Specimen Type: BLOOD SPECIMENOrdering Facility: [facility] [place] Address:[address] [place], [place] [address]Performed By: #### 04845-9 ####[facility] LABIA [id number] [address] STATES OF PREMIER HEALTHUrea nitrogen [Mass/Vol]15 mg/dLNormal9-24[facility] Medical Centerment on above:Order Comment: Specimen Type: BLOOD SPECIMENOrdering Facility: [facility] [place] Address:[address] [place], [place] [address]Performed By: #### 96430- 2 ####[facility] LABIA [id number] [place] [address] [place] PREMIER HEALTHCBC panel Auto (Bld)on 10-04-2023 Erythrocyte distribution width (RBC) [Ratio]12.4 %Oyrzez81.5-15.0[facility] on above:Order Comment: Specimen Type: BLOOD SPECIMENOrdering Facility: [facility] [place] Address:[address] [place], [place] [address]Performed By: #### 16496-0 ####[facility] LABIA [id number] [place] [address] [place] AMERICAHematocrit (Bld) [Volume fraction]37.6 %Low39.0-51.0[facility] on above:Order Comment: Specimen Type: BLOOD SPECIMENOrdering Facility: [facility] [place] Address:[address] [place], [place] [address]Performed By: #### 28284-9 ####[facility] LABIA [id number] [place] [address] [place] Hemoglobin (Bld) [Mass/Vol]12.1 g/dLLow13.0-17.0[facility] Comment on above:Order Comment: Specimen Type: BLOOD SPECIMENOrdering Facility: [facility] [place] Address:[address] [place] [address] Performed By: #### 68275-7 ####[facility] LABIA [id number] [place] [address] [place] MCH (RBC) [Entitic mass]32.5 imStaqpi41.0-34.0[facility] on above:Order Comment: Specimen Type: BLOOD SPECIMENOrdering Facility: [facility] [place] Address:[address] [place] [address] Performed By: #### 15651-1 ####[facility] LABIA [id number] [place] [address] [place] MCHC (RBC) [Mass/Vol]32.2 g/oRGtppci71.5-36.0[facility] on above:Order Comment: Specimen Type: BLOOD SPECIMENOrdering Facility: [facility] [place] Address:[address] [place] [address] Performed By: #### 54416-2 ####[facility] LABIA [id number] [place] [address] [place] MCV (RBC) [Entitic vol]101.1 nLUevv22.0-100.0[facility] on above:Order Comment: Specimen Type: BLOOD SPECIMENOrdering Facility: [facility] [place] Address:[address] [place] [address] Performed By: #### 85722-1 ####[facility] LABIA [id number] [place] [address] [place] Nucleated RBC (Bld) [#/Vol]10*3/uLNormal<0.01[facility] on above:Order Comment: Specimen Type: BLOOD SPECIMENOrdering Facility: [facility] [place] Address:[address] [place] [address] Performed By: #### 62443-3 ####[facility]PITALIA [id number] [place] [address] [place] Platelet mean volume (Bld) [Entitic vol]10.1 fLNormal9.0-12.7CThe [facility] on above:Order Comment: Specimen Type: BLOOD SPECIMENOrdering Facility: [facility] [place] Address:[address] [place], [place] [address]Performed By: #### 51000-6 ####[facility] LABIA [id number] [place] [address] [place] Platelets (Bld) [#/Vol]352 10*3/yVUbokru007-726FutuwawzuKettering Health [place] on above:Order Comment: Specimen Type: BLOOD SPECIMENOrdering Facility: [facility] [place] Address:[address] [place] [address] Performed By: #### 05444-5 ####[facility] LABIA [id number] [place] [address] [place] RBC (Bld) [#/Vol]3.72 10*6/uLLow4.20-6.00[facility] on above:Order Comment: Specimen Type: BLOOD SPECIMENOrdering Facility: [facility] [place] Address:[address] [place], [place] [address]Performed By: #### 02522-7 ####[facility] LABCLIA [id number] [place] [address] [place] AMERICAWBC (Bld) [#/Vol]10.84 10*3/uLNormal3.70-11.00[facility] on above:Order Comment: Specimen Type: BLOOD SPECIMENOrdering Facility: [facility] [place] Address:[address] [place], [place] [address]Performed By: #### 69300- 2 ####[facility] LABCLIA [id number] [place] [address] [place] AMERICATHERAPY NTon 06-40-3408HGHJXVF NT NormalWvumedicine Harrison Community HospitalBathe medical center metabolic 2000 panelon 26-02-6984Phxko gap [Moles/Vol]10 mmol/LNormal8-15[facility] on above:Order Comment: Specimen Type: BLOOD SPECIMENOrdering Facility: [facility] [place] Address:[address] [place], [place] [address]Performed By: #### 92868- 2 ####[facility] LABIA [id number] [place] [address] [place] AMERICACalcium [Mass/Vol]9.0 mg/dLNormal 8.5-10.2C[facility] on above:Order Comment: Specimen Type: BLOOD SPECIMENOrdering Facility: [facility] [place] Address:[address] [place], [place] [address]Performed By: #### 82234-0 ####[facility] LABCLIA [id number] [place] [address] [place] AMERICAChloride [Moles/Vol]105 mmol/HWkqows72-321UdcamabqgKettering Health [facility] on above:Order Comment: Specimen Type: BLOOD SPECIMENOrdering Facility: [facility] [place] Address:[address] [place], [place] [address]Performed By: #### 78404-4 ####[facility] LABCLIA [id number] [place] [address] [place] AMERICACO2 [Moles/Vol]23 mmol/TXcolas87-32UwfvxvdtyKettering Health [facility] on above:Order Comment: Specimen Type: BLOOD SPECIMENOrdering Facility: [facility] [place] Address:[address] [place], [place] [address]Performed By: #### 84243-5 ####[facility] LABIA [id number] [place] [address] [place] AMERICACreatinine [Mass/Vol] 0.92 mg/dLNormal0.73-1.22[facility] on above:Order Comment: Specimen Type: BLOOD SPECIMENOrdering Facility: [facility] [place] Address:[address] [place], [place] [address]Performed By: #### 45947- 2 ####[facility] LABIA [id number] [place] [address] [place] AMERICACreatinine and Glomerular filtration rate.predicted panel (S/P/Bld)92 mL/min/1.73m???Normal>=60[facility] on above:Order Comment: Specimen Type: BLOOD SPECIMENOrdering Facility: [facility] [place] Address:[address] [place], [place] [address]Result Comment: Estimated Glomerular Filtration Rate (eGFR) is calculated using the 2020 CKD-EPI creatinine equation. This equation utilizes serum creatinine, sex, and age as parameters. The creatinine assay has traceable calibration to isotope dilution-mass spectrometry. Refer to KDIGO guidelines for clinical interpretation. In patients with unstable renal function, e.g. those with acute kidney injury, the eGFR may not accurately reflect actual GFR.Performed By: #### 09521-2 ####[facility] LABIA [id number] [place] [address] [place] AMERICAGlucose [Mass/Vol]121 mg/xGIdtx02-44ZbkpjtooaWvumedicine Harrison Community HospitalComment on above:Order Comment: Specimen Type: BLOOD SPECIMENOrdering Facility: [facility] [place] Address:[address] [place], [place] [address]Result Comment: The [place] Diabetes Association (ADA) provides guidance for cutoff [...] Standards of Medical Care in Diabetes 2016, [place] Diabetes Association. Diabetes Care. 2016.39(Suppl 1).Performed By: #### 63047-0 ####[facility] LABIA [id number] [place] [address] [place] AMERICAPotassium [Moles/Vol]4.0 mmol/LNormal3.7-5.1CSelect [facility] Comment on above:Order Comment: Specimen Type: BLOOD SPECIMENOrdering Facility: [facility] [place] Address:[address] [place] [address] Performed By: #### 68653-0 ####[facility] LABIA [id number] [place] [address] [place] Sodium [Moles/Vol]138 mmol/ERhbfwk322-576FfglksqcxWvumedicine Harrison Community HospitalComment on above:Order Comment: Specimen Type: BLOOD SPECIMENOrdering Facility: [facility] [place] Address:[address] [place], [place] [address]Performed By: #### 33581-4 ####[facility] [id number] [place] [address] [place] AMERICAUrea nitrogen [Mass/Vol]21 mg/dLNormal9-24[facility] on above:Order Comment: Specimen Type: BLOOD SPECIMENOrdering Facility: [facility] [place] Address:[address] [place], [place] [address]Performed By: #### 34161- 2 ####[facility] LABCLIA [id number] [place] [address] [place] AMERICACASE MGT INIT ASSESon 10-03-2023 CASE MGT INIT [facility] panel Auto (Bld)on 33-01-9737Polbecsehxz distribution width (RBC) [Ratio]11.9 %Ddirjy16.5-15.0 [facility] Community HospitalComment on above:Order Comment: Specimen Type: BLOOD SPECIMENOrdering Facility: [facility] [place] Address:[address] [place], [place] [address]Performed By: #### 59309-8 ####[facility] LABCLIA [id number] [address] STATES OF PREMIER HEALTHHematocrit (Bld) [Volume fraction]35.0 %Low39.0-51.0[facility] on above:Order Comment: Specimen Type: BLOOD SPECIMENOrdering Facility: [facility] [place] Address:[address] [place], [place] [address]Performed By: #### 62504-8 ####[facility] LABCLIA [id number] [place] [address] [place] Hemoglobin (Bld) [Mass/Vol]11.5 g/dLLow13.0-17.0[facility] Comment on above:Order Comment: Specimen Type: BLOOD SPECIMENOrdering Facility: [facility] [place] Address:[address] [place] [address] Performed By: #### 32399-5 ####[facility] LABCLIA [id number] [place] [address] [place] MCH (RBC) [Entitic mass]32.0 aoIppflm31.0-34.0[facility] on above:Order Comment: Specimen Type: BLOOD SPECIMENOrdering Facility: [facility] [place] Address:[address] [place] [address] Performed By: #### 67807-1 ####[facility] LABCLIA [id number] [place] [address] [place] MCHC (RBC) [Mass/Vol]32.9 g/lWLuttwp41.5-36.0[facility] on above:Order Comment: Specimen Type: BLOOD SPECIMENOrdering Facility: [facility] [place] Address:[address] [place] [address] Performed By: #### 94861-7 ####[facility] LABIA [id number] [place] [address] [place] MCV (RBC) [Entitic vol]97.5 uAPwxjci10.0-100.0[facility] on above:Order Comment: Specimen Type: BLOOD SPECIMENOrdering Facility: [facility] [place] Address:[address] [place] [address] Performed By: #### 61662-6 ####[facility] LABIA [id number] [place] [address] [place] Nucleated RBC (Bld) [#/Vol]10*3/uLNormal<0.01[facility] on above:Order Comment: Specimen Type: BLOOD SPECIMENOrdering Facility: [facility] [place] Address:[address] [place] [address] Performed By: #### 78127-6 ####[facility] LABIA [id number] [place] [address] [place] Platelet mean volume (Bld) [Entitic vol]10.4 fLNormal9.0-12.7CThe [facility] on above:Order Comment: Specimen Type: BLOOD SPECIMENOrdering Facility: [facility] [place] Address:[address] [place], [place] [address]Performed By: #### 18076-4 ####[facility] LABCLIA [id number] [place] [address] [place] Platelets (Bld) [#/Vol]354 10*3/kOBolavr340-333KtjtamvnyWvumedicine Harrison Community HospitalCompromedica monroe [facility] on above:Order Comment: Specimen Type: BLOOD SPECIMENOrdering Facility: [facility] [place] Address:[address] [place] [address] Performed By: #### 79416-5 ####[facility] LABCLIA [id number] [place] [address] [place] RBC (Bld) [#/Vol]3.59 10*6/uLLow4.20-6.00[facility] Community HospitalComment on above:Order Comment: Specimen Type: BLOOD SPECIMENOrdering Facility: [facility] [place] Address:[address] [place], [place] [address]Performed By: #### 82774-7 ####[facility] LABCLIA [id number] [place] [address] [place] AMERICAWBC (Bld) [#/Vol]11.20 10*3/uLHigh3.70-11.00[facility] on above:Order Comment: Specimen Type: BLOOD SPECIMENOrdering Facility: [facility] [place] Address:[address] [place], [place] [address]Performed By: #### 86383-9 ####[facility] LABCLIA [id number] [place] [address] [place] AMERICACNDSon 29-98-6567EJXLZtipon [facility] HospitalTHERAPY NTon 94-75-8732XJQMCVA NTNormalCleveland [facility] Medical CenterTHERAPY NTNormalCleveland [facility] Medical CenterANES POSTPROC EVALon 04-99-2599CAFP POSTPROC EVALNormalCleveland [facility] Medical CenterANES PRE-OPon 43-44-3414RVNX PRE-OPNormalWvumedicine Harrison Community HospitalBRIEF OP NOTon 10-02-2023 BRIEF OP NOTNormalCSelect Medical TriHealth Rehabilitation HospitalOPERATIVE NOon 46-50-3715ABATXPGZV NONormalWvumedicine Harrison Community HospitalTYPE + SCREENon 50-08-2835HMGJCblezvPjwjbsrsu Clinic ClevelandComment on above:Order Comment: Specimen Type: BLOOD SPECIMENOrdering Facility: [facility] [place] Address:[address] [place], [place] [address]Performed By: #### TSCR ####CC MAIN BLOOD BANKCLIA [id number] [place] [address] [place] AMERICAHISTORICAL AB SCR STATUSNegativeNoHighland District Hospital on above:Order Comment: Specimen Type: BLOOD SPECIMENOrdering Facility: [facility] [place] Address:[address] [place] [address] Performed By: #### TSCR ####CC MAIN BLOOD BANKCLIA [id number] [place] [address] [place] AMERICARh Nom (Bld)Negative NormalKettering Health [facility] on above:Order Comment: Specimen Type: BLOOD SPECIMENOrdering Facility: [facility] [place] Address:[address] [place], [place] [address]Performed By: #### TSCR ####CC MAIN BLOOD BANKCLIA [id number] [place] [address] [place] AMERICATYPE AND SCREEN WLCNYSIWHA15/28/2024 23:59NormalCThe [facility] on above:Order Comment: Specimen Type: BLOOD SPECIMENOrdering Facility: [facility] [place] Address:[address] [place], [place] [address]Performed By: #### TSCR ####CC MAIN BLOOD BANKCLIA [id number] [place] [id number] [place] AMERICAXR LUMBAR SPECIFY 1Von 20-51-9909JX LUMBAR SPECIFY 1VNormalCSelect Medical TriHealth Rehabilitation HospitalCNNURSEon 30-01-2024GFZIULPZgayidBmwiupdnb Clinic ClevelandCNPNon 44-97-9108HSVNOkjfsd [facility] HospitalCNPNon 59-86-3412DEGFLeayuyYgwsosskm [facility] CNPNon 83-40-6672TVSEHwjcqmGaxoymvzt Clinic ClevelandCNCOon 19-58-4480ISFYSlnfgz TextNormalCSelect Medical TriHealth Rehabilitation HospitalALLIED HEALTHon 74-63-4088QRKACA HEALTH NormalWvumedicine Harrison Community HospitalBasic metabolic 2000 panelon 99-27-5737Wraup gap [Moles/Vol]10 mmol/LNormal8-15[facility] on above:Order Comment: Specimen Type: BLOOD SPECIMENOrdering Facility: [facility] [place] Address:[address] [place], [place] [address]Performed By: #### 66519- 2 ####[facility] LABCLIA [id number] [place] [address] [place] AMERICACalcium [Mass/Vol]9.6 mg/dLNormal 8.5-10.2C[facility] on above:Order Comment: Specimen Type: BLOOD SPECIMENOrdering Facility: [facility] [place] Address:[address] [place], [place] [address]Performed By: #### 81715-3 ####[facility] LABCLIA [id number] [address] [address] [place] AMERICAChloride [Moles/Vol]102 mmol/CFszztc81-725VftupzthfKettering Health [facility]burg on above:Order Comment: Specimen Type: BLOOD SPECIMENOrdering Facility: [facility] [place] Address:[address] [place] [address]Performed By: #### 30879-2 ####[facility] LABCLIA [id number] [address] [address] [place] AMERICACO2 [Moles/Vol]27 mmol/AJnqqqk90-49IxyzgxoeiKettering Health [facility] on above:Order Comment: Specimen Type: BLOOD SPECIMENOrdering Facility: [facility] [place] Address:[address] [place], [place] [address]Performed By: #### 26249-6 ####[facility] LABIA [id number] [place] [address] [place] AMERICACreatinine [Mass/Vol] 0.88 mg/dLNormal0.73-1.22[facility] on above:Order Comment: Specimen Type: BLOOD SPECIMENOrdering Facility: [facility] [place] Address:[address] [place], [place] [address]Performed By: #### 70463- 2 ####[facility] LABIA [id number] [place] [address] [place] AMERICACreatinine and Glomerular filtration rate.predicted panel (S/P/Bld)95 mL/min/1.73m???Normal>=60[facility] on above:Order Comment: Specimen Type: BLOOD SPECIMENOrdering Facility: [facility] [place] Address:[address] [place], [place] [address]Result Comment: Estimated Glomerular Filtration Rate (eGFR) is calculated using the 2020 CKD-EPI creatinine equation. This equation utilizes serum creatinine, sex, and age as parameters. The creatinine assay has traceable calibration to isotope dilution-mass spectrometry. Refer to KDIGO guidelines for clinical interpretation. In patients with unstable renal function, e.g. those with acute kidney injury, the eGFR may not accurately reflect actual GFR.Performed By: #### 37690-0 ####[facility] LABIA [id number] [place] [address] [place] AMERICAGlucose [Mass/Vol]82 mg/bWLbtgdg67-11UkcjprwwyKettering Health [facility] on above:Order Comment: Specimen Type: BLOOD SPECIMENOrdering Facility: [facility] [place] Address:[address] [place], [place] [address]Result Comment: The [place] Diabetes Association (ADA) provides guidance for cutoff [...] Standards of Medical Care in Diabetes 2016, [place] Diabetes Association. Diabetes Care. 2016.39(Suppl 1).Performed By: #### 34533-0 ####[facility] LABCLIA [id number] [place] [address] [place] AMERICAPotassium [Moles/Vol]4.3 mmol/LNormal3.7-5.1CSelect [facility] Comment on above:Order Comment: Specimen Type: BLOOD SPECIMENOrdering Facility: [facility] [place] Address:[address] [place] [address] Performed By: #### 68622-9 ####[facility] LABIA [id number] [place] [address] [place] Sodium [Moles/Vol]139 mmol/FBlfwax321-894HhmajjaslWvumedicine Harrison Community HospitalComment on above:Order Comment: Specimen Type: BLOOD SPECIMENOrdering Facility: [facility] [place] Address:[address] [place], [place] [address]Performed By: #### 12431-3 ####[facility] LABIA [id number] [place] [address] [place] AMERICAUrea nitrogen [Mass/Vol]22 mg/dLNormal9-24[facility] Community HospitalComment on above:Order Comment: Specimen Type: BLOOD SPECIMENOrdering Facility: [facility] [place] Address:[address] [place], [place] [address]Performed By: #### 15438- 2 ####[facility] LABIA [id number] [place] [address] [place] AMERICACASE MANAGEMon 10-93-3019QDHV MANAGEMNormalWvumedicine Harrison Community HospitalCASE MANAGEMNormalWvumedicine Harrison Community HospitalCNDSon 59-24-1291STGZWuevojTkileutmp Clinic ClevelandMRI LUMBAR SPINE WO IVCONon 73-25-3097QDJ LUMBAR SPINE WO IVCONNormalWvumedicine [facility] Hospital THERAPY NTon 05-21-1965HCYRTRJ NTNormalCSelect Medical TriHealth Rehabilitation HospitalCASE MANAGEMon 01-94-7220DOXV MANAGEMNormalWvumedicine Harrison Community HospitalMagnesium SerPl-mCncon 90-56-9782Bcuagnign [Mass/Vol]2.1 mg/dLNormal1.7-2.3CSelect [facility] Comment on above:Order Comment: Specimen Type: BLOOD SPECIMENOrdering Facility: [facility] [place] Address:[address] [place] [address] Performed By: #### 86913-2, 36930-4 ####[facility] LABCLIA [id number] [place] [address] [place] Renal function 2000 panelon 96-88-7212Aepdofq [Mass/Vol]3.9 g/dLNormal3.9-4.9 [facility] HospitalComment on above:Order Comment: Specimen Type: BLOOD SPECIMENOrdering Facility: [facility] [place] Address:[address] [place], [place] [address]Performed By: #### 12390-6, 91599-5 ####[facility] LABIA [id number] [place] [address] [place] AMERICAAnion gap [Moles/Vol]13 mmol/LNormal8-15[facility] HospitalComment on above:Order Comment: Specimen Type: BLOOD SPECIMENOrdering Facility: [facility] [place] Address:[address] [place], [place] [address]Performed By: #### 92443-0, 32851-1 ####[facility] LABIA [id number] [place] [address] [place] AMERICACalcium [Mass/Vol]9.7 mg/dLNormal8.5-10.2CSelect [facility] Comment on above:Order Comment: Specimen Type: BLOOD SPECIMENOrdering Facility: [facility] [place] Address:[address] [place] [address] Performed By: #### 91605-5, 59873-7 ####[facility] LABCLIA [id number] [address] [address] [place] Chloride [Moles/Vol]101 mmol/CTcvikd29-578MnyuxirhpKettering Health Miamisburg on above:Order Comment: Specimen Type: BLOOD SPECIMENOrdering Facility: [facility] [place] Address:[address] [place], [place] [address]Performed By: #### 59209-8, 23931-2 ####[facility] LABCLIA [id number] [place] [address] [place] AMERICACO2 [Moles/Vol]25 mmol/GZnyywf87-14DjusrzguyKettering Health [facility]burg on above:Order Comment: Specimen Type: BLOOD SPECIMENOrdering Facility: [facility] [place] Address:[address] [place], [place] [address]Performed By: #### 86665-5, 34587-9 ####[facility] LABCLIA [id number] [place] [address] [place] AMERICACreatinine [Mass/Vol]0.99 mg/dL Normal0.73-1.22[facility] on above:Order Comment: Specimen Type: BLOOD SPECIMENOrdering Facility: [facility] [place] Address:[address] [place], [place] [address]Performed By: #### 62250-7, 69425-2 ####[facility] LABIA [id number] [place] [address] [place] AMERICACreatinine and Glomerular filtration rate.predicted panel (S/P/Bld)84 mL/min/1.73m???Normal>=60[facility] on above:Order Comment: Specimen Type: BLOOD SPECIMENOrdering Facility: [facility] [place] Address:[address] [place], [place] [address]Result Comment: Estimated Glomerular Filtration Rate (eGFR) is calculated using the 2020 CKD-EPI creatinine equation. This equation utilizes serum creatinine, sex, and age as parameters. The creatinine assay has traceable calibration to isotope dilution-mass spectrometry. Refer to KDIGO guidelines for clinical interpretation. In patients with unstable renal function, e.g. those with acute kidney injury, the eGFR may not accurately reflect actual GFR.Performed By: #### 91457-3, 66532-8 ####[facility] LABCLIA [id number] [place] [address] [place] AMERICAGlucose [Mass/Vol]123 mg/rAImcf76-01IttlehughWvumedicine Harrison Community Hospital Comment on above:Order Comment: Specimen Type: BLOOD SPECIMENOrdering Facility: [facility] [place] Address:[address] [place], [place] [address]Result Comment: The [place] Diabetes Association (ADA) provides guidance for cutoff [...] Standards of Medical Care in Diabetes 2016, [place] Diabetes [employer]. Diabetes Care. 2016.39(Suppl 1).Performed By: #### 18061-8, 62201-9 ####[facility] LABCLIA [id number] [place] [address] [place] AMERICAPhosphate [Mass/Vol]3.3 mg/dLNormal2.7-4.8CSelect Medical TriHealth Rehabilitation HospitalComment on above:Order Comment: Specimen Type: BLOOD SPECIMENOrdering Facility: [facility] [place] Address:[address] [place], [place] [address]Performed By: #### 97093-6, 56263-9 ####[facility] LABCLIA [id number] [place] [address] [place] AMERICAPotassium [Moles/Vol]4.4 mmol/LNormal3.7-5.1CSelect [facility] Comment on above:Order Comment: Specimen Type: BLOOD SPECIMENOrdering Facility: [facility] [place] Address:[address] [place] [address] Performed By: #### 76170-2, 75405-4 ####[facility] LABCLIA [id number] [place] [address] [place] Sodium [Moles/Vol]139 mmol/LBrlqvq804-960ZglmsnhcoKettering Health [facility] on above:Order Comment: Specimen Type: BLOOD SPECIMENOrdering Facility: [facility] [place] Address:[address] [place], [place] [address]Performed By: #### 98297-8, 01407-3 ####[facility] LABCLIA [id number] [address] STATES OF AMERICAUrea nitrogen [Mass/Vol]25 mg/dLHigh9-24[facility] Medical Centerment on above:Order Comment: Specimen Type: BLOOD SPECIMENOrdering Facility: [facility] [place] Address:[address] [place], [place] [address]Performed By: #### 64544- 9, 75792-3 ####[facility] LABCLIA [id number] [place] [address] [place] AMERICATHERAPY NTon 09-09-2023 THERAPY NTNormalCnationwide children's hospitaland [facility] Medical CenterTHERAPY NTNormalCSelect Medical TriHealth Rehabilitation HospitalCASE MGT INIT ASSESon 44-32-7844FOJR MGT INIT ASSESNormalCnationwide children's hospitaland [facility] Medical CenterED PROV NOTEon 27-44-8641HF PROV NOTENormalCnationwide children's hospitaland [facility] Medical CenterHISTORY PHYSICALon 49-50-2189ELQXGPU PHYSICALNormalCSelect Medical TriHealth Rehabilitation HospitalCB W Auto Differential panel (Bld)on 71-87-5860Qehkqnnmd (Bld) [#/Vol] 0.00 10*3/uLNormal<0.11C[facility] on above:Order Comment: Specimen Type: BLOOD SPECIMENOrdering Facility: [facility] [place] Address:[address] [place], [place] [address]Performed By: #### 25725-6, 7 ####[facility] LABCLIA [id number] [place] [address] [place] AMERICABasophils/100 WBC (Bld)0.0 % NormalWvumedicine Harrison Community HospitalComment on above:Order Comment: Specimen Type: BLOOD SPECIMENOrdering Facility: [facility] [place] Address:[address] [place], [place] [address]Performed By: #### 69858-8, 7 ####[facility] LABCLIA [id number] [place] [address] [place] AMERICADifferential cell count method Nom (Bld)ManualNormal [facility]umed[facility] Harrison Community HospitalComment on above:Order Comment: Specimen Type: BLOOD SPECIMENOrdering Facility: [facility] [place] Address:[address] [place], [place] [address]Performed By: #### 98787-4, 7 ####[facility] LABIA [id number] [place] [address] [place] AMERICAEosinophils (Bld) [#/Vol]0.00 10*3/uLNormal<0.46[facility] Community HospitalCompromedica mon[facility] on above:Order Comment: Specimen Type: BLOOD SPECIMENOrdering Facility: [facility] [place] Address:[address] [place], [place] [address]Performed By: #### 02153-2, 4536-09 ####[facility] LABIA [id number] [place] [address] [place] AMERICAEosinophils/100 WBC (Bld)0.0 %NormalWvumedicine Harrison Community Hospital Comment on above:Order Comment: Specimen Type: BLOOD SPECIMENOrdering Facility: [facility] [place] Address:[address] [place] [address] Performed By: #### 10512-6, 4536-09 ####[facility] LABIA [id number] [place] [address] [place] Erythrocyte distribution width (RBC) [Ratio]13.3 %Izuqgo37.5-15.0[facility] on above:Order Comment: Specimen Type: BLOOD SPECIMENOrdering Facility: [facility] [place] Address:[address] [place], [place] [address]Performed By: #### 48852-4, 453-7 ####[facility] LABIA [id number] [place] [address] [place] AMERICAHematocrit (Bld) [Volume fraction]38.1 %Low39.0-51.0[facility] on above:Order Comment: Specimen Type: BLOOD SPECIMENOrdering Facility: [facility] [place] Address:[address] [place], [place] [address]Performed By: #### 91578-7, 4537-7 ####[facility] LABIA [id number] [place] [address] [place] AMERICAHemoglobin (Bld) [Mass/Vol]12.5 g/dLLow13.0-17.0[facility] on above:Order Comment: Specimen Type: BLOOD SPECIMENOrdering Facility: [facility] [place] Address:[address] [place], [place] [address]Performed By: #### 94604-7, 4537-7 ####[facility] LABIA [id number] [place] [address] [place] AMERICALymphocytes (Bld) [#/Vol]1.64 10*3/uLNormal1.00-4.00[facility] on above:Order Comment: Specimen Type: BLOOD SPECIMENOrdering Facility: [facility] [place] Address:[address] [place], [place] [address]Performed By: #### 96079-0, 4537-7 ####[facility] LABCLIA [id number] [place] [address] [place] AMERICALymphocytes/100 WBC (Bld)12.2 %NormalWvumedicine Harrison Community Hospital Comment on above:Order Comment: Specimen Type: BLOOD SPECIMENOrdering Facility: [facility] [place] Address:[address] [place] [address] Performed By: #### 06984-1, 4537-7 ####[facility] LABIA [id number] [place] [address] [place] MCH (RBC) [Entitic mass]32.6 mnSyzvrz90.0-34.0Wvumedicine Harrison Community HospitalComment on above:Order Comment: Specimen Type: BLOOD SPECIMENOrdering Facility: [facility] [place] Address:[address] [place] [address] Performed By: #### 34405-5, 453-7 ####[facility] LABIA [id number] [place] [address] [place] MCHC (RBC) [Mass/Vol]32.8 g/aMVvyvyl61.5-36.0W[facility] Harrison Community HospitalComment on above:Order Comment: Specimen Type: BLOOD SPECIMENOrdering Facility: [facility] [place] Address:[address] [place] [address] Performed By: #### 30495-7, 4536-7 ####[facility] LABIA [id number] [place] [address] [place] MCV (RBC) [Entitic vol]99.2 vTGtdzxg77.0-100.0[facility] on above:Order Comment: Specimen Type: BLOOD SPECIMENOrdering Facility: [facility] [place] Address:[address] [place] [address] Performed By: #### 65620-3, 4536-7 ####[facility] LABIA [id number] [place] [address] [place] Monocytes (Bld) [#/Vol]1.40 10*3/uLHigh<0.87[facility] on above:Order Comment: Specimen Type: BLOOD SPECIMENOrdering Facility: [facility] [place] Address:[address] [place], [place] [address]Performed By: #### 86648-9, 4536-7 ####[facility] LABCLIA [id number] [place] [address] [place] AMERICAMonocytes/100 WBC (Bld)10.4 %NormalKettering Health [facility] on above:Order Comment: Specimen Type: BLOOD SPECIMENOrdering Facility: [facility] [place] Address:[address] [place], [place] [address]Performed By: #### 73269-9, 4536-7 ####[facility] LABCLIA [id number] [place] [address] [place] AMERICANeutrophils (Bld) [#/Vol]10.39 10*3/uLHigh1.45-7.50[facility] on above:Order Comment: Specimen Type: BLOOD SPECIMENOrdering Facility: [facility] [place] Address:[address] [place], [place] [address]Performed By: #### 14327-9, 7 ####[facility] LABCLIA [id number] [place] [address] [place] AMERICANeutrophils/100 WBC (Bld)77.4 % NormalKettering Health [facility] on above:Order Comment: Specimen Type: BLOOD SPECIMENOrdering Facility: [facility] [place] Address:[address] [place], [place] [address]Performed By: #### 41111-4, 4536-7 ####[facility] LABCLIA [id number] [place] [address] [place] AMERICANucleated RBC (Bld) [#/Vol]10*3/uLNormal<0.01[facility] on above:Order Comment: Specimen Type: BLOOD SPECIMENOrdering Facility: [facility] [place] Address:[address] [place], [place] [address]Performed By: #### 72848-6, 4536-7 ####[facility] LABIA [id number] [place] [address] [place] AMERICANucleated RBC/100 WBC (Bld) [Ratio]0.0 /100 WBCNormalCSelect Medical TriHealth Rehabilitation HospitalComment on above:Order Comment: Specimen Type: BLOOD SPECIMENOrdering Facility: [facility] [place] Address:[address] [place], [place] [address]Performed By: #### 52990-7, 4536-7 ####[facility] LABIA [id number] [place] [address] [place] AMERICAPlatelet mean volume (Bld) [Entitic vol]9.9 fLNormal9.0-12.7 [facility] Community HospitalComment on above:Order Comment: Specimen Type: BLOOD SPECIMENOrdering Facility: [facility] [place] Address:[address] [place], [place] [address]Performed By: #### 46527-9, 7 ####[facility] LABIA [id number] [place] [address] [place] AMERICAPlatelets (Bld) [#/Vol]285 10*3/mJJwzdfu838-697GekqbhqdyWvumedicine Harrison Community HospitalComment on above:Order Comment: Specimen Type: BLOOD SPECIMENOrdering Facility: [facility] [place] Address:[address] [place], [place] [address]Performed By: #### 17549-4, 7 ####[facility] LABIA [id number] [place] [address] [place] AMERICAPlatelets Estimate (Bld) [#/Vol]AdequateNormalCSelect Medical [facility] Rehabilitation Hospital Comment on above:Order Comment: Specimen Type: BLOOD SPECIMENOrdering Facility: [facility] [place] Address:[address] [place] [address] Performed By: #### 32365-5, 4536-7 ####[facility] LABCLIA [id number] [facility] CENTERLID AVENUETUSTIN HOSPITAL [place] [address] [place] RBC (Bld) [#/Vol]3.84 10*6/uLLow4.20-6.00[facility] on above:Order Comment: Specimen Type: BLOOD SPECIMENOrdering Facility: [facility] [place] Address:[address] [place], [place] [address]Performed By: #### 39425-2, 4537-7 ####[facility] LABIA [id number] [place] [address] [place] AMERICARED CELL MORPH Reviewed: unremarkableNormalClevelMercy Health – The Jewish Hospital on above:Order Comment: Specimen Type: BLOOD SPECIMENOrdering Facility: [facility] [place] Address:[address] [place], [place] [address]Performed By: #### 12273- 8, 4537-7 ####[facility] LABCLIA [id number] [address] [facility] [place] [address] [place] AMERICAWBC (Bld) [#/Vol]13.43 10*3/uLHigh3.70-11.00[facility] on above:Order Comment: Specimen Type: BLOOD SPECIMENOrdering Facility: [facility] [place] Address:[address] [place], [place] [address]Performed By: #### 36826-6, 4537-7 ####[facility] LABIA [id number] [facility] [place] [address] [place] AMERICACONSULTon 78-94-3636DAAKQJJAbdssz [facility] Community HospitalCR SerPl-mCncon 57-53-3792JRP [Mass/Vol]mg/LNormal <0.9CThe [facility] on above:Order Comment: Specimen Type: BLOOD SPECIMENOrdering Facility: [facility] [place] Address:[address] [place], [place] [address]Performed By: #### 44111-3, 1987-07, , ####[facility] LABCLIA [id number] [address] [address] [place] OF AMERICACT LUMBAR SPINE WO IVCONon 37-10-9449QS LUMBAR SPINE WO IVCONNormalWvumedicine Harrison Community HospitalComprehensive metabolic 2000 panelon 58-33-3173Qlhndki [Mass/Vol]4.0 g/dLNormal3.9-4.9 [facility] on above:Order Comment: Specimen Type: BLOOD SPECIMENOrdering Facility: [facility] [place] Address:[address] [place], [place] [address]Performed By: #### 62335-1, 1987-07, , ####[facility] LABCLIA [id number] [place] [address] [place] AMERICAALP [Catalytic activity/Vol]136 U/MQmmf61-900WhbojfpxaKettering Health [facility] on above:Order Comment: Specimen Type: BLOOD SPECIMENOrdering Facility: [facility] [place] Address:[address] [place], [place] [address]Performed By: #### 39873-6, 1987-07, , ####[facility] LABCLIA [id number] [place] [address] [place] AMERICAALT [Catalytic activity/Vol]20 U/BZndzjk35-87TfmqymxjpKettering Health [facility] on above:Order Comment: Specimen Type: BLOOD SPECIMENOrdering Facility: [facility] [place] Address:[address] [place], [place] [address]Performed By: #### 58199- 8, 1987-07, , ####[facility] LABCLIA [id number] [address] [address] [place] AMERICAAnion gap [Moles/Vol]10 mmol/LNormal8-15[facility] on above: Order Comment: Specimen Type: BLOOD SPECIMENOrdering Facility: [facility] [place] Address:[address] [place], [place] [address]Performed By: #### 14558- 8, 1987-07, , 89052-0 ####[facility] LABCLIA [id number] [place] [address] [place] AMERICAAST [Catalytic activity/Vol]19 U/LNndzlf64-08HxudrngseKettering Health [facility] on above:Order Comment: Specimen Type: BLOOD SPECIMENOrdering Facility: [facility] [place] Address:[address] [place], [place] [address]Performed By: #### 17928-2, 1987-07, , 37097-8 ####[facility] LABCLIA [id number] [place] [address] [place] Bilirubin [Mass/Vol]0.6 mg/dLNormal0.2-1.3CThe [facility] on above:Order Comment: Specimen Type: BLOOD SPECIMENOrdering Facility: [facility] [place] Address:[address] [place], [place] [address]Performed By: #### 31798-4, 1987-07, , 79499-8 ####[facility] LABCLIA [id number] [place] [address] [place] Calcium [Mass/Vol]9.7 mg/dLNormal8.5-10.2CThe [facility] on above:Order Comment: Specimen Type: BLOOD SPECIMENOrdering Facility: [facility] [place] Address:[address] [place], [place] [address]Performed By: #### 72711-7, 1987-07, , 83535-8 ####[facility] LABCLIA [id number] [place] [address] [place] Chloride [Moles/Vol]105 mmol/JCezdby51-258VkhwzckrhKettering Health [facility] on above:Order Comment: Specimen Type: BLOOD SPECIMENOrdering Facility: [facility] [place] Address:[address] [place] [address]Kicgwlulc By: #### 71034-4, 1987-07, , 46352-5 ####[facility] LABCLIA [id number] [place] [address] [place] CO2 [Moles/Vol]26 mmol/YFwatat07-89TfdfuxkrtKettering Health [facility] on above: Order Comment: Specimen Type: BLOOD SPECIMENOrdering Facility: [facility] [place] Address:[address] [place], [place] [address]Performed By: #### 53238- 8, 1987-07, , 23917-5 ####[facility] LABCLIA [id number] [place] [address] [place] Creatinine [Mass/Vol]0.93 mg/dLNormal0.73-1.22[facility] on above:Order Comment: Specimen Type: BLOOD SPECIMENOrdering Facility: [facility] [place] Address:[address] [place] [address] Performed By: #### 66934-3, 1987-07, , 20173-3 ####[facility] LABCLIA [id number] [place] [address] [place] AMERICACreatinine and Glomerular filtration rate.predicted panel (S/P/Bld)91 mL/min/1.73m???Normal>=60[facility] on above: Order Comment: Specimen Type: BLOOD SPECIMENOrdering Facility: [facility] [place] Address:[address] [place], [place] [address]Result Comment: Estimated Glomerular Filtration Rate (eGFR) is [...] not accurately reflect actual GFR.Performed By: #### 13590-6, 1987-07, , 15953-6 ####[facility] LABCLIA [id number] [place] [address] [place] AMERICAGlucose [Mass/Vol]90 mg/zGKbwkch61-36FumblczboKettering Health [facility] on above:Order Comment: Specimen Type: BLOOD SPECIMENOrdering Facility: [facility] [place] Address:[address] [place], [place] [address]Result Comment: The [place] Diabetes Association (ADA) provides guidance for cutoff [...] Standards of Medical Care in Diabetes 2016, [place] [employer]. Diabetes Care. 2016.39(Suppl 1). Performed By: #### 33491-0, 1987-07, , 35666-5 ####[facility] LABCLIA [id number] [place] [address] [place] AMERICAPotassium [Moles/Vol]3.8 mmol/LNormal3.7-5.1CThe [facility] on above:Order Comment: Specimen Type: BLOOD SPECIMENOrdering Facility: [facility] [place] Address:[address] [place] [address]Performed By: #### 42802-6, 1987-07, , 88036-1 ####[facility] LABCLIA [id number] [place] [address] [place] AMERICAProtein [Mass/Vol]6.0 g/dLLow6.3-8.0[facility] on above:Order Comment: Specimen Type: BLOOD SPECIMENOrdering Facility: [facility] [place] Address:[address] [place], [place] [address]Performed By: #### 30381-9, 1987-07, , 89577-7 ####[facility] LABCLIA [id number] [place] [address] [place] AMERICASodium [Moles/Vol]141 mmol/FMdqoih684-425AejpsulieKettering Health [facility] on above:Order Comment: Specimen Type: BLOOD SPECIMENOrdering Facility: [facility] [place] Address:[address] [place], [place] [address]Performed By: #### 79366-9, 1987-07, , 65088-5 ####[facility] LABCLIA [id number] [place] [address] [place] AMERICAUrea nitrogen [Mass/Vol]29 mg/dL High9-24[facility] on above:Order Comment: Specimen Type: BLOOD SPECIMENOrdering Facility: [facility] [place] Address:[address] [place], [place] [address]Performed By: #### 37206-5, 1987-07, , 25264-5 ####[facility] LABCLIA [id number] [place] [address] [place] AMERICAESR Westergren method (Bld) [Velocity]on 96-76-4996BAM (Bld) [Velocity]5 mm/hNormal0-15[facility] on above:Order Comment: Specimen Type: BLOOD SPECIMENOrdering Facility: [facility] [place] Address:[address] [place], [place] [address]Performed By: #### 62216-8, 4537-7 ####[facility] LABCLIA [id number] [place] [address] [place] AMERICAMagnesium SerPl-mCncon 05-53-4035Uhpcvydfu [Mass/Vol]2.1 mg/dL Normal1.7-2.3[facility] ClevelandComment on above:Order Comment: Specimen Type: BLOOD SPECIMENOrdering Facility: [facility] [place] Address:[address] [place], [place] [address]Performed By: #### 84453-7, 1987-07, , ####[facility] LABCLIA [id number] [address] [address] [place] AMERICANT-proBNP SerPl-mCncon 31-55-3738Cvzcxfvejuo peptide.B prohormone N-Terminal [Mass/Vol]153 pg/mLHigh <125[facility] HospitalCompromedica [facility] on above:Order Comment: Specimen Type: BLOOD SPECIMENOrdering Facility: [facility] [place] Address:[address] [place], [place] [address]Performed By: #### 61051-0, 1987-07, , ####[facility] LABCLIA [id number] [place] [address] [place] AMERICAUS DVT LOWER BILon 28-42-6885JH DVT LOWER BILNormalCSelect Medical TriHealth Rehabilitation HospitalUrinalysis complete panel (U)on 47-24-6995Zqgheysb LM.HPF (Urine sed) [#/Area]NegativeNormalNegativeWvumedicine Harrison Community HospitalCompromedica monroe [facility] hospital on above:Order Comment: Specimen Type: URINE SPECIMENOrdering Facility: [facility] [place] Address:[address] [place], [place] [address]Performed By: #### 42686-1 ####[facility] LABCLIA [id number] [place] [address] [place] AMERICABilirubin Ql (U)NegativeNormalNegativeWvumedicine Harrison Community HospitalComment on above:Order Comment: Specimen Type: URINE SPECIMENOrdering Facility: [facility] [place] Address:[address] [place] [address] Performed By: #### 62721-3 ####[facility] LABCLIA [id number] [place] [address] [place] Clarity (Unsp spec)ClearNormalClearCleSelect Medical Specialty [facility] ClevelandComment on above: Order Comment: Specimen Type: URINE SPECIMENOrdering Facility: [facility] [place] Address:[address] [place], [place] [address]Performed By: #### 54041- 8 ####[facility] LABCLIA [id number] [place] [address] [place] AMERICAColor (U)YellowNormalYellow [facility] on above:Order Comment: Specimen Type: URINE SPECIMENOrdering Facility: [facility] [place] Address:[address] [place], [place] [address]Performed By: #### 41641-4 ####[facility] LABCLIA [id number] [place] [address] [place] AMERICAEpithelial cells LM.HPF (Urine sed) [#/Area]None SeenNoalCThe [facility] Hospital on above:Order Comment: Specimen Type: URINE SPECIMENOrdering Facility: [facility] [place] Address:[address] [place], [place] [address]Performed By: #### 00192-6 ####[facility] LABCLIA [id number] [place] [address] [place] AMERICAGlucose Test strip (U) [Mass/Vol]NegativeNormalNegativeKettering Health [facility] on above:Order Comment: Specimen Type: URINE SPECIMENOrdering Facility: [facility] [place] Address:[address] [place], [place] [address]Performed By: #### 86014-5 ####[facility] LABCLIA [id number] [place] [id number] [place] Hemoglobin Ql (U)NegativeNormalNegativeKettering Health [facility] on above:Order Comment: Specimen Type: URINE SPECIMENOrdering Facility: [facility] [place] Address:[address] [place], [place] [address]Performed By: #### 61859-7 ####[facility] LABCLIA [id number] [place] [address] [place] AMERICAHyaline casts (Urine sed) [#/Area]0 /[LPF]Normal0 /LPFCThe Jewish Hospital on above: Order Comment: Specimen Type: URINE SPECIMENOrdering Facility: [facility] [place] Address:[address] [place], [place] [address]Performed By: #### 46424- 8 ####[facility] LABCLIA [id number] [place] [address] [place] AMERICAKetones Ql (U)NegativeNormal NegativeKettering Health [facility] on above:Order Comment: Specimen Type: URINE SPECIMENOrdering Facility: [facility] [place] Address:[address] [place], [place] [address]Performed By: #### 65168-1 ####[facility] LABCLIA [id number] [address] STATES OF AMERICALeukocyte esterase Test strip Ql (U)NegativeNormal NegativeKettering Health [facility] on above:Order Comment: Specimen Type: URINE SPECIMENOrdering Facility: [facility] [place] Address:[address] [place], [place] [address]Performed By: #### [id number] ####[facility] LABCLIA [id number] [place] [address] [place] AMERICANitrite Ql (U)NegativeNormalNegativeKettering Health [place] on above:Order Comment: Specimen Type: URINE SPECIMENOrdering Facility: [facility] [place] Address:[address] [place], [place] [address]Performed By: #### [id number] ####[facility] LABCLIA [id number] [place] [address] [place] pH (U)7.0 [pH]Normal<8.5CThe [facility] on above:Order Comment: Specimen Type: URINE SPECIMENOrdering Facility: [facility] [place] Address:[address] [place], [place] [address]Performed By: #### [id number] ####[facility] LABIA [id number] [place] [address] [place] AMERICAProtein (U) [Mass/Vol]Negative NormalNegativeKettering Health [place] on above:Order Comment: Specimen Type: URINE SPECIMENOrdering Facility: [facility] [place] Address:[address] [place], [place] [address]Performed By: #### [id number] ####[facility] [id number] [place] [address] [place] PREMIER HEALTHRBC LM.HPF (Urine sed) [#/Area]0-2 /HPFNormal0-2 /HPF [facility] on above:Order Comment: Specimen Type: URINE SPECIMENOrdering Facility: [facility] [place] Address:[address] [place], [place] [address]Performed By: #### 43339-2 ####[facility] [id number] [place] [address] [place] OF AMERICASpecific gravity (U) [Rel density]1.951Evpygy1.005-1.030[facility] on above:Order Comment: Specimen Type: URINE SPECIMENOrdering Facility: [facility] [place] Address:[address] [place], [place] [address]Performed By: #### 46411-4 ####[facility] [id number] [place] [address] [place] Urobilinogen Ql (U)0.2 EU/dLNormal0.2-1.0 EU/dLKettering Health [facility] on above:Order Comment: Specimen Type: URINE SPECIMENOrdering Facility: [facility] [place] Address:[address] [place] [address] Performed By: #### 53572-6 ####[facility] [id number] [place] [address] [place] WBC LM.HPF (Urine sed) [#/Area]0-5 /HPFNormal0-5 /HPFWvumedicine Harrison Community Hospital Comment on above:Order Comment: Specimen Type: URINE SPECIMENOrdering Facility: [facility] [place] Address:[address] [place] [address] Performed By: #### 63991-3 ####[facility] LABIA [id number] [place] [address] [place] XR LUMBAR 3V AP/LAT/L5-S1on 52-39-8744MU LUMBAR 3V AP/LAT/L5-K4FxrrgoDpumdznbcSelect Medical TriHealth Rehabilitation HospitalCNPNon 91-47-2540OJLBFtacdvQlktqhjvu Clinic ClevelandCNPNon 18-77-7515ALVFUbihcyHtlofnbln Clinic ClevelandCNCOon 27-28-7072FKQKTrxtqv Text NormalWvumedicine Harrison Community HospitalBasi metabolic 2000 panelon 85-11-5881Nyenm gap [Moles/Vol]9 mmol/LNormal8-15[facility] Harrison Community HospitalComment on above:Order Comment: Specimen Type: BLOOD SPECIMENOrdering Facility: [facility] [place] Address:[address] [place], [place] [address]Performed By: #### 71472- 2 ####[facility] LABCLIA [id number] [place] [address] [place] AMERICACalcium [Mass/Vol]9.4 mg/dLNormal 8.5-10.2CSelect Medical TriHealth Rehabilitation HospitalComment on above:Order Comment: Specimen Type: BLOOD SPECIMENOrdering Facility: [facility] [place] Address:[address] [place], [place] [address]Performed By: #### 35274-9 ####[facility] LABIA [id number] [place] [address] [place] AMERICAChloride [Moles/Vol]103 mmol/JFdpaif70-345WhivsejzaWvumedicine Harrison Community HospitalComment on above:Order Comment: Specimen Type: BLOOD SPECIMENOrdering Facility: [facility] [place] Address:[address] [place], [place] [address]Performed By: #### 09219-8 ####[facility] LABCLIA [id number] [place] [address] [place] AMERICACO2 [Moles/Vol]26 mmol/AMqffaq84-99BdeifdigrKettering Health [facility] on above:Order Comment: Specimen Type: BLOOD SPECIMENOrdering Facility: [facility] [place] Address:[address] [place], [place] [address]Performed By: #### 74611-1 ####[facility] LABIA [id number] [place] [address] [place] AMERICACreatinine [Mass/Vol] 0.77 mg/dLNormal0.73-1.22[facility] on above:Order Comment: Specimen Type: BLOOD SPECIMENOrdering Facility: [facility] [place] Address:[address] [place], [place] [address]Performed By: #### 53449- 2 ####[facility] [id number] [place] [address] [place] AMERICACreatinine and Glomerular filtration rate.predicted panel (S/P/Bld)99 mL/min/1.73m???Normal>=60[facility] on above:Order Comment: Specimen Type: BLOOD SPECIMENOrdering Facility: [facility] [place] Address:[address] [place], [place] [address]Result Comment: Estimated Glomerular Filtration Rate (eGFR) is calculated using the 2020 CKD-EPI creatinine equation. This equation utilizes serum creatinine, sex, and age as parameters. The creatinine assay has traceable calibration to isotope dilution-mass spectrometry. Refer to KDIGO guidelines for clinical interpretation. In patients with unstable renal function, e.g. those with acute kidney injury, the eGFR may not accurately reflect actual GFR.Performed By: #### 24971-0 ####[facility] LABIA [id number] [place] [address] [place] AMERICAGlucose [Mass/Vol]112 mg/mJErsy34-53RzejftoyeKettering Health [facility] on above:Order Comment: Specimen Type: BLOOD SPECIMENOrdering Facility: [facility] [place] Address:[address] [place], [place] [address]Result Comment: The [place] Diabetes Association (ADA) provides guidance for cutoff [...] Standards of Medical Care in Diabetes 2016, [place] Diabetes Association. Diabetes Care. 2016.39(Suppl 1).Performed By: #### 70323-5 ####[facility] LABCLIA [id number] [place] [address] [place] AMERICAPotassium [Moles/Vol]5.1 mmol/LNormal3.7-5.1CSelect Medical [facility] Rehabilitation Hospital Comment on above:Order Comment: Specimen Type: BLOOD SPECIMENOrdering Facility: [facility] [place] Address:[address] [place], [place] [address] Performed By: #### 61468-6 ####[facility] LABCLIA [id number] [place] [address] [place] Sodium [Moles/Vol]138 mmol/PPtznob686-930EjdnfwaokWvumedicine Harrison Community HospitalComment on above:Order Comment: Specimen Type: BLOOD SPECIMENOrdering Facility: [facility] [place] Address:[address] [place], [place] [address]Performed By: #### 03577-1 ####[facility] LABCLIA [id number] [place] [address] [place] AMERICAUrea nitrogen [Mass/Vol]16 mg/dLNormal9-24W[facility]umed[facility] Community HospitalCompromedica mon[facility] on above:Order Comment: Specimen Type: BLOOD SPECIMENOrdering Facility: [facility] [place] Address:[address] [place], [place] [address]Performed By: #### 02644- 2 ####[facility] LABCLIA [id number] [address]CBC panel Auto (Bld)on 08-22-2023 Erythrocyte distribution width (RBC) [Ratio]13.2 %Jbpzlt77.5-15.0W[facility]umed[facility] Harrison Community HospitalComment on above:Order Comment: Specimen Type: BLOOD SPECIMENOrdering Facility: [facility] [place] Address:[address] [place], [place] [address]Performed By: #### 47901-6 ####[facility] LABCLIA [id number] [address] ST[address]ETHematocrit (Bld) [Volume fraction]34.6 %Low39.0-51.0[facility] Harrison Community HospitalComment on above:Order Comment: Specimen Type: BLOOD SPECIMENOrdering Facility: [facility] [place] Address:[address] [place], [place] [address]Performed By: #### 74848-7 ####[facility] LABCLIA [id number] [address] [place] Hemoglobin (Bld) [Mass/Vol]11.6 g/dLLow13.0-17.0[facility] Comment on above:Order Comment: Specimen Type: BLOOD SPECIMENOrdering Facility: [facility] [place] Address:[address] [place] [address] Performed By: #### 97294-8 ####[facility] LABCLIA [id number] [place] [address] [place] MCH (RBC) [Entitic mass]31.9 joVbwoyc39.0-34.0[facility] on above:Order Comment: Specimen Type: BLOOD SPECIMENOrdering Facility: [facility] [place] Address:[address] [place] [address] Performed By: #### 79321-7 ####[facility] LABCLIA [id number] [place] [address] [place] MCHC (RBC) [Mass/Vol]33.5 g/wYUbyuhh42.5-36.0[facility] on above:Order Comment: Specimen Type: BLOOD SPECIMENOrdering Facility: [facility] [place] Address:[address] [place] [address] Performed By: #### 75722-3 ####[facility] [id number] [place] [address] [place] MCV (RBC) [Entitic vol]95.1 dSSfixky93.0-100.0[facility] on above:Order Comment: Specimen Type: BLOOD SPECIMENOrdering Facility: [facility] [place] Address:[address] [place] [address] Performed By: #### 52247-3 ####[facility] [id number] [place] [address] [place] Nucleated RBC (Bld) [#/Vol]10*3/uLNormal<0.01[facility] on above:Order Comment: Specimen Type: BLOOD SPECIMENOrdering Facility: [facility] [place] Address:[address] [place] [address] Performed By: #### 03632-5 ####[facility] [id number] [place] [address] [place] Platelet mean volume (Bld) [Entitic vol]9.7 fLNormal9.0-12.7CThe [facility] on above:Order Comment: Specimen Type: BLOOD SPECIMENOrdering Facility: [facility] [place] Address:[address] [place], [place] [address]Performed By: #### 21744-2 ####[facility] [id number] [place] [address] [place] Platelets (Bld) [#/Vol]393 10*3/zSPrtsqh331-660XalapwtigKettering Health [facility] on above:Order Comment: Specimen Type: BLOOD SPECIMENOrdering Facility: [facility] [place] Address:[address] [place] [address] Performed By: #### 49071-4 ####[facility] LABCLIA [id number] [place] [address] [place] RBC (Bld) [#/Vol]3.64 10*6/uLLow4.20-6.00[facility] on above:Order Comment: Specimen Type: BLOOD SPECIMENOrdering Facility: [facility] [place] Address:[address] [place], [place] [address]Performed By: #### 55028-4 ####[facility] LABCLIA [id number] [place] [address] [place] AMERICAWBC (Bld) [#/Vol]17.35 10*3/uLHigh3.70-11.00[facility] on above:Order Comment: Specimen Type: BLOOD SPECIMENOrdering Facility: [facility] [place] Address:[address] [place], [place] [address]Performed By: #### 06622-6 ####[facility] LABCLIA [id number] [place] [address] [place] AMERICACNDSon 58-05-6300HQNGOdqjcp [facility] Community HospitalTHERAPY NTon 41-64-0990NILJDCV NTNormalCSelect Medical TriHealth Rehabilitation HospitalBathe medical center metabolic 2000 panelon 05-10-0511Scikn gap [Moles/Vol]10 mmol/LNormal8-15[facility] on above:Order Comment: Specimen Type: BLOOD SPECIMENOrdering Facility: [facility] [place] Address:[address] [place], [place] [address]Performed By: #### 57794-7 ####[facility] LABCLIA [id number] [place] [address] [place] AMERICACalcium [Mass/Vol]9.5 mg/dLNormal 8.5-10.2CThe [facility] on above:Order Comment: Specimen Type: BLOOD SPECIMENOrdering Facility: [facility] [place] Address:[address] [place], [place] [address]Performed By: #### 89846-5 ####[facility] LABCLIA [id number] [place] [address] [place] AMERICAChloride [Moles/Vol]106 mmol/RFsfifd86-020IqgiqyrglKettering Health [facility] on above:Order Comment: Specimen Type: BLOOD SPECIMENOrdering Facility: [facility] [place] Address:[address] [place], [place] [address]Performed By: #### 72372-5 ####[facility] LABCLIA [id number] [place] [address] [place] AMERICACO2 [Moles/Vol]22 mmol/TUjprml13-39BypficygbKettering Health [facility] on above:Order Comment: Specimen Type: BLOOD SPECIMENOrdering Facility: [facility] [place] Address:[address] [place], [place] [address]Performed By: #### 92526-1 ####[facility] LABCLIA [id number] [place] [address] [place] AMERICACreatinine [Mass/Vol] 0.84 mg/dLNormal0.73-1.22[facility] on above:Order Comment: Specimen Type: BLOOD SPECIMENOrdering Facility: [facility] [place] Address:[address] [place], [place] [address]Performed By: #### 57667- 2 ####[facility] LABCLIA [id number] [place] [address] [place] AMERICACreatinine and Glomerular filtration rate.predicted panel (S/P/Bld)96 mL/min/1.73m???Normal>=60[facility] on above:Order Comment: Specimen Type: BLOOD SPECIMENOrdering Facility: [facility] [place] Address:[address] [place], [place] [address]Result Comment: Estimated Glomerular Filtration Rate (eGFR) is calculated using the 2020 CKD-EPI creatinine equation. This equation utilizes serum creatinine, sex, and age as parameters. The creatinine assay has traceable calibration to isotope dilution-mass spectrometry. Refer to KDIGO guidelines for clinical interpretation. In patients with unstable renal function, e.g. those with acute kidney injury, the eGFR may not accurately reflect actual GFR.Performed By: #### 03825-0 ####[facility] LABCLIA [id number] [place] [address] [place] AMERICAGlucose [Mass/Vol]140 mg/vSPagy88-99WczkmepglWvumedicine Harrison Community HospitalComment on above:Order Comment: Specimen Type: BLOOD SPECIMENOrdering Facility: [facility] [place] Address:[address] [place], [place] [address]Result Comment: The [place] Diabetes Association (ADA) provides guidance for cutoff [...] Standards of Medical Care in Diabetes 2016, [place] Diabetes Association. Diabetes Care. 2016.39(Suppl 1).Performed By: #### 73371-9 ####[facility] LABCLIA [id number] [place] [address] [place] AMERICAPotassium [Moles/Vol]4.4 mmol/LNormal3.7-5.1CSelect [facility] Comment on above:Order Comment: Specimen Type: BLOOD SPECIMENOrdering Facility: [facility] [place] Address:[address] [place] [address] Performed By: #### 79349-6 ####[facility] LABCLIA [id number] [place] [address] [place] Sodium [Moles/Vol]138 mmol/GSkrwtg132-124AhycqpllmKettering Health [facility] on above:Order Comment: Specimen Type: BLOOD SPECIMENOrdering Facility: [facility] [place] Address:[address] [place], [place] [address]Performed By: #### 43409-2 ####[facility] LABIA [id number] [place] [address] [place] AMERICAUrea nitrogen [Mass/Vol]14 mg/dLNormal9-24[facility] on above:Order Comment: Specimen Type: BLOOD SPECIMENOrdering Facility: [facility] [place] Address:[address] [place], [place] [address]Performed By: #### 17171- 2 ####[facility] [id number] [place] [address] [place] AMERICACASE MANAGEMon 01-44-5171JRQU MANAGEMNormalProvidence Hospital panel Auto (Bld)on 08-21-2023 Erythrocyte distribution width (RBC) [Ratio]13.1 %Ndpgvk45.5-15.0[facility] on above:Order Comment: Specimen Type: BLOOD SPECIMENOrdering Facility: [facility] [place] Address:[address] [place], [place] [address]Performed By: #### 78071-3 ####[facility] LABIA [id number] [place] [address] [place] PREMIER HEALTHHematocrit (Bld) [Volume fraction]34.2 %Low39.0-51.0[facility] on above:Order Comment: Specimen Type: BLOOD SPECIMENOrdering Facility: [facility] [place] Address:[address] [place], [place] [address]Performed By: #### 90496-5 ####[facility] LABIA [id number] [place] [address] [place] Hemoglobin (Bld) [Mass/Vol]11.6 g/dLLow13.0-17.0[facility] Comment on above:Order Comment: Specimen Type: BLOOD SPECIMENOrdering Facility: [facility] [place] Address:[address] [place] [address] Performed By: #### 81707-3 ####[facility] LABCLIA [id number] [place] [address] [place] MCH (RBC) [Entitic mass]31.7 vtYwggwr41.0-34.0[facility] on above:Order Comment: Specimen Type: BLOOD SPECIMENOrdering Facility: [facility] [place] Address:[address] [place] [address] Performed By: #### 10728-0 ####[facility] LABIA [id number] [place] [address] [place] MCHC (RBC) [Mass/Vol]33.9 g/aRHaabud17.5-36.0[facility] HospitalComment on above:Order Comment: Specimen Type: BLOOD SPECIMENOrdering Facility: [facility] [place] Address:[address] [place] [address] Performed By: #### 15759-9 ####[facility] LABIA [id number] [place] [address] [place] MCV (RBC) [Entitic vol]93.4 bSQptruz03.0-100.0[facility] on above:Order Comment: Specimen Type: BLOOD SPECIMENOrdering Facility: [facility] [place] Address:[address] [place] [address] Performed By: #### 02969-7 ####[facility] LABIA [id number] [place] [address] [place] Nucleated RBC (Bld) [#/Vol]10*3/uLNormal<0.01[facility] on above:Order Comment: Specimen Type: BLOOD SPECIMENOrdering Facility: [facility] [place] Address:[address] [place] [address] Performed By: #### 26924-6 ####[facility] LABIA [id number] [place] [address] [place] Platelet mean volume (Bld) [Entitic vol]9.3 fLNormal9.0-12.7CThe [facility] on above:Order Comment: Specimen Type: BLOOD SPECIMENOrdering Facility: [facility] [place] Address:[address] [place], [place] [address]Performed By: #### 53019-6 ####[facility] LABIA [id number] [place] [address] [place] Platelets (Bld) [#/Vol]324 10*3/eJAddeqq710-860PybyujpucKettering Health [facility]burg on above:Order Comment: Specimen Type: BLOOD SPECIMENOrdering Facility: [facility] [place] Address:[address] [place] [address] Performed By: #### 44546-5 ####[facility] LABIA [id number] [place] [address] [place] RBC (Bld) [#/Vol]3.66 10*6/uLLow4.20-6.00[facility] on above:Order Comment: Specimen Type: BLOOD SPECIMENOrdering Facility: [facility] [place] Address:[address] [place], [place] [address]Performed By: #### 79371-8 ####[facility] LABIA [id number] [place] [address] [place] AMERICAWBC (Bld) [#/Vol]13.46 10*3/uLHigh3.70-11.00[facility] on above:Order Comment: Specimen Type: BLOOD SPECIMENOrdering Facility: [facility] [place] Address:[address] [place], [place] [address]Performed By: #### 55522-9 ####[facility] LABCLIA [id number] [address] [address] [place] AMERICATHERAPY NTon 52-24-2588GLVDRER NT NormalWvumedicine Harrison Community HospitalTHERAPY NTNormalClevelFirstHealth Moore Regional Hospital [facility] THERAPY NTNormalCnationwide children's hospitaland [facility] Medical CenterXR LUMBAR 2V AP/LATon 86-31-3913BL LUMBAR 2V AP/LATNormalCnationwide children's hospitaland [facility] Medical CenterBasic metabolic 2000 panelon 69-22-6312Yehyb gap [Moles/Vol]11 mmol/LNormal8-15[facility] Comment on above:Order Comment: Specimen Type: BLOOD SPECIMENOrdering Facility: [facility] [place] Address:[address] [place] [address] Performed By: #### 37774-6 ####[facility] LABCLIA [id number] [place] [address] [place] Calcium [Mass/Vol]9.3 mg/dLNormal8.5-10.2CSelect Medical TriHealth Rehabilitation HospitalCompromedica monroe regional hospital on above:Order Comment: Specimen Type: BLOOD SPECIMENOrdering Facility: [facility] [place] Address:[address] [place], [place] [address]Performed By: #### 49555-5 ####[facility] LABCLIA [id number] [place] [address] [place] AMERICAChloride [Moles/Vol] 105 mmol/ZSavozj60-512HgluiolnnWvumedicine Harrison Community HospitalComment on above:Order Comment: Specimen Type: BLOOD SPECIMENOrdering Facility: [facility] [place] Address:[address] [place], [place] [address]Performed By: #### 99637-9 ####[facility] LABCLIA [id number] [place] [id number] [place] AMERICACO2 [Moles/Vol]24 mmol/LNormal 22-30[facility] on above:Order Comment: Specimen Type: BLOOD SPECIMENOrdering Facility: [facility] [place] Address:[address] [place], [place] [address]Performed By: #### 14471-7 ####[facility] LABIA [id number] [place] [address] [place] PREMIER HEALTHCreatinine [Mass/Vol]0.86 mg/dLNormal0.73-1.22[facility] on above:Order Comment: Specimen Type: BLOOD SPECIMENOrdering Facility: [facility] [place] Address:[address] [place], [place] [address]Performed By: #### 82038-4 ####[facility] [id number] [place] [address] [place] Creatinine and Glomerular filtration rate.predicted panel (S/P/Bld)95 mL/min/1.73m???Normal>=60[facility] on above:Order Comment: Specimen Type: BLOOD SPECIMENOrdering Facility: [facility] [place] Address:[address] [place], [place] [address]Result Comment: Estimated Glomerular Filtration Rate (eGFR) is [...] not accurately reflect actual GFR.Performed By: #### 54534-8 ####[facility] LABIA [id number] [place] [address] [place] AMERICAGlucose [Mass/Vol]111 mg/dLHigh 74-99[facility] on above:Order Comment: Specimen Type: BLOOD SPECIMENOrdering Facility: [facility] [place] Address:[address] [place], [place] [address]Result Comment: The [place] [employer] (ADA) provides guidance for cutoff [...] Standards of Medical Care in Diabetes 2016, [place] [employer]. Diabetes Care. 2016.39(Suppl 1).Performed By: #### [id number] ####[facility] LABIA [id number] [place] [address] [place] PREMIER HEALTHPotassium [Moles/Vol]4.0 mmol/L Normal3.7-5.1CSelect Medical TriHealth Rehabilitation HospitalComment on above:Order Comment: Specimen Type: BLOOD SPECIMENOrdering Facility: [facility] [place] Address:[address] [place], [place] [address]Performed By: #### 37629-8 ####[facility] [id number] [address]ETSodium [Moles/Vol]140 mmol/KUisuzy211-774DsxgyxuysWvumedicine Harrison Community HospitalComment on above:Order Comment: Specimen Type: BLOOD SPECIMENOrdering Facility: [facility] [place] Address:[address] [place], [place] [address]Performed By: #### 90892-2 ####[facility] [id number] [address] STATES OF PREMIER HEALTHUrea nitrogen [Mass/Vol]10 mg/dLNormal9-24[facility] Comment on above:Order Comment: Specimen Type: BLOOD SPECIMENOrdering Facility: [facility] [place] Address:[address] [place] [address] Performed By: #### 63281-5 ####[facility] [id number] [address] [place] CBC panel Auto (Bld)on 27-68-4405Mxaqxhgasbg distribution width (RBC) [Ratio] 13.2 %Hxunqp32.5-15.0[facility] on above:Order Comment: Specimen Type: BLOOD SPECIMENOrdering Facility: [facility] [place] Address:[address] [place], [place] [address]Performed By: #### 47371-4 ####[facility] LABCLIA [id number] [place] [address] [place] OF AMERICAHematocrit (Bld) [Volume fraction]39.0 %Hocoih49.0-51.0[facility] on above:Order Comment: Specimen Type: BLOOD SPECIMENOrdering Facility: [facility] [place] Address:[address] [place], [place] [address]Performed By: #### 09053- 2 ####[facility] LABIA [id number] [address] STATES OF AMERICAHemoglobin (Bld) [Mass/Vol]12.9 g/dLLow13.0-17.0[facility] on above:Order Comment: Specimen Type: BLOOD SPECIMENOrdering Facility: [facility] [place] Address:[address] [place], [place] [address]Performed By: #### 11417-5 ####[facility] LABCLIA [id number] [address] OF PREMIER HEALTHMCH (RBC) [Entitic mass]32.4 pg Yfijer87.0-34.0[facility] on above:Order Comment: Specimen Type: BLOOD SPECIMENOrdering Facility: [facility] [place] Address:[address] [place], [place] [address]Performed By: #### 93674-8 ####[facility] LABIA [id number] [place] [address] [place] PREMIER HEALTHMCHC (RBC) [Mass/Vol]33.1 g/dL Tsdwnz30.5-36.0[facility] on above:Order Comment: Specimen Type: BLOOD SPECIMENOrdering Facility: [facility] [place] Address:[address] [place], [place] [address]Performed By: #### 36969-1 ####[facility] LABCLIA [id number] [place] [address] [place] AMERICAMCV (RBC) [Entitic vol]98.0 fL Ikwztj84.0-100.0[facility] on above:Order Comment: Specimen Type: BLOOD SPECIMENOrdering Facility: [facility] [place] Address:[address] [place], [place] [address]Performed By: #### 90353-3 ####[facility] LABIA [id number] [address] STATES OF AMERICANucleated RBC (Bld) [#/Vol] 10*3/uLNormal<0.01[facility] on above:Order Comment: Specimen Type: BLOOD SPECIMENOrdering Facility: [facility] [place] Address:[address] [place], [place] [address]Performed By: #### 20343-8 ####[facility] LABIA [id number] [place] [address] [place] AMERICAPlatelet mean volume (Bld) [Entitic vol]9.7 fLNormal9.0-12.7CThe [facility] on above: Order Comment: Specimen Type: BLOOD SPECIMENOrdering Facility: [facility] [place] Address:[address] [place], [place] [address]Performed By: #### 59335- 2 ####[facility] LABIA [id number] [place] [address] [place] AMERICAPlatelets (Bld) [#/Vol]389 10*3/rDUqxbfd992-870ZphpyxsyzKettering Health [facility] on above:Order Comment: Specimen Type: BLOOD SPECIMENOrdering Facility: [facility] [place] Address:[address] [place], [place] [address]Performed By: #### 15697-4 ####[facility] LABIA [id number] [place] [address] [place] AMERICARBC (Bld) [#/Vol]3.98 10*6/uLLow 4.20-6.00[facility] on above:Order Comment: Specimen Type: BLOOD SPECIMENOrdering Facility: [facility] [place] Address:[address] [place], [place] [address]Performed By: #### 11626-4 ####[facility] LABCLIA [id number] [place] [address] [place] AMERICAWBC (Bld) [#/Vol]11.15 10*3/uLHigh3.70-11.00[facility] on above:Order Comment: Specimen Type: BLOOD SPECIMENOrdering Facility: [facility] [place] Address:[address] [place], [place] [address]Performed By: #### 43085-7 ####[facility] LABCLIA [id number] [place] [address] [place] OF AMERICACT LUMBAR SPINE WO IVCONon 51-03-5943LM LUMBAR SPINE WO IVCONNormal [facility] Community HospitalMRI LUMBAR SPINE WO IVCONon 14-10-9361ABK LUMBAR SPINE WO IVCONNormalWvumedicine Harrison Community HospitalTHERAPY NTon 55-86-2304WDXTGCM NTNormal [facility] Community HospitalTHERAPY NTNormalCnationwide children's hospitaland [facility] POSTPROC EVALon 75-63-6957CYXA POSTPROC EVALNormalCnationwide children's hospitaland [facility] Medical CenterANES PRE-OPon 62-54-6950BQZF PRE-OPNormalWvumedicine Harrison Community HospitalBRIEF OP NOTon 83-71-1077KVAMB OP NOTNormalCSelect Medical TriHealth Rehabilitation HospitalNEATING [facility] PROGon 08-19-2023 NURSING PROGNormalWvumedicine Harrison Community HospitalNURSING PROGNormalWvumedicine Harrison Community HospitalOPERATIVE NOon 36-44-8143JAQXNMBCE NONormalWvumedicine Harrison Community HospitalXR LUMBAR 2V AP/LATon 56-57-3818XC LUMBAR 2V AP/LATNormalCleveland [facility]ville Medical CenterXR LUMBAR 2V AP/LATNormalCleveland [facility] Medical CenterXR LUMBAR 2V AP/LAT NormalWvumedicine Harrison Community HospitalCNPNon 01-01-3819PYTLEiqscwVllxrpjhb Clinic ClevelandBasi metabolic 2000 panelon 02-01-8915Foqde gap [Moles/Vol]13 mmol/L9 - 18 mmol/LCleveland ClinicCalcium [Mass/Vol]9.2 mg/dL8.5 - 10.2 mg/dLBisbee ClinicChloride [Moles/Vol]100 mmol/L97 - 105 mmol/LCleveland ClinicCO2 [Moles/Vol]24 mmol/L22 - 30 mmol/LCleveland ClinicCreatinine [Mass/Vol]1.00 mg/dL0.73 - 1.22 mg/dLBisbee ClinicGFR/1.73 sq M.predicted among non-blacks MDRD (S/P/Bld) [Vol rate/Area]83 mL/min/{1.73_m2}- PINFCTrinity Health System East CampusComment on above:Estimated Glomerular Filtration Rate (eGFR) is calculated using the 2020 CKD-EPI creatinine equation. This equation utilizes serum creatinine, sex, and age as parameters. The creatinine assay has traceable calibration to isotope dilution-mass spectrometry. Refer to KDIGO guidelines for clinical inte rpretation. In patients with unstable renal function, e.g. those with acute kidney injury, the eGFRmay not accurately reflect actual GFR.Glucose [Mass/Vol] 100 mg/lKLfmo80 - 99 mg/dLElyria Memorial Hospitalment on above:The [place] Diabetes Association (ADA) provides guidance for cutoff [...] Standards of Medical Care in Diabetes 2016, [place] Diabetes Association. Diabetes Care. 2016.39(Suppl 1). Interpretation and review of laboratory resultsAbnormalCleveland ClinicPotassium [Moles/Vol]4.1 mmol/L3.7 - 5.1 mmol/LCleveland ClinicSodium [Moles/Vol]137 mmol/L136 - 144 mmol/LCleveland ClinicUrea nitrogen [Mass/Vol]23 mg/dL9 - 24 mg/dLMetrohealth Cleveland Heights Medical CenterAni gap [Moles/Vol]13 mmol/LNormal9-18[facility] Comment on above:Order Comment: Specimen Type: BLOOD SPECIMEN Ordering Facility: [facility] [place] Address: [address] [place], [place] [address]Performed By: #### 83553-6, 6-4, 62317-3 #### [facility] CLIA [id number] [address] [place] [address] [place] AMERICACalcium [Mass/Vol]9.2 mg/dLNormal8.5-10.2 [facility]ountain HealthcareComment on above:Order Comment: Specimen Type: BLOOD SPECIMEN Ordering Facility: [facility] [place] Address: [address] [place], [place] [address]Performed By: #### 95876-4, 2275-4, 84131-2 #### [facility] CLIA [id number] [address] [place] [address] [place] AMERICAChloride [Moles/Vol]100 mmol/LNormal 97-105AvSt. Vincent Carmel HospitalComment on above:Order Comment: Specimen Type: BLOOD SPECIMEN Ordering Facility: [facility] [place] Address: [address] [place], [place] [address]Performed By: #### 46794-5, 2275-06, 95726-6 #### [facility] CLIA [id number] [address] [place] [address] [place] AMERICACO2 [Moles/Vol]24 mmol/SJyuoea17-91Pand HospitalComment on above:Order Comment: Specimen Type: BLOOD SPECIMEN Ordering Facility: [facility] [place] Address: [address] [place], [place] [address]Performed By: #### 47545-0, 2275-4, 82813-0 #### [facility] CLIA [id number] [address] [place] [address] [place] AMERICACreatinine [Mass/Vol]1.00 mg/dLNormal 0.73-1.22Intermountain HealthcareComment on above:Order Comment: Specimen Type: BLOOD SPECIMEN Ordering Facility: [facility] [place] Address: [address] [place], [place] [address]Vjbpkmsyr By: #### 44641-4, 2276-4, 85842-8 #### [facility] CLIA [id number] [address] [place] [address] [place] AMERICACreatinine and Glomerular filtration rate.predicted panel (S/P/Bld)83 mL/min/1.73m???Normal>=60Intermountain HealthcareComment on above:Order Comment: Specimen Type: BLOOD SPECIMEN Ordering Facility: [facility] [place] Address: [address] [place] [address]Pacrcz Comment: Estimated Glomerular Filtration Rate (eGFR) is [...] not accurately reflect actual GFR.Performed By: #### 60693-6, 2276-4, 72806-5 #### [facility] CLIA [id number] [address] [facility] [place] [address] [place] AMERICAGlucose [Mass/Vol]100 mg/qHHidx51-40Jsnd HospitalComment on above:Order Comment: Specimen Type: BLOOD SPECIMEN Ordering Facility: [facility] [place] Address: [address] [place], [place] [address]Fzseni Comment: The [place] Diabetes Association (ADA) provides guidance for cutoff [...] Standards of Medical Care in Diabetes 2016, [place] Diabetes Association. Diabetes Care. 2016.39(Suppl 1).Performed By: #### 34434-7, 2276-4, 61804-5 #### [facility] CLIA [id number] [address] [place] [address] [place] AMERICAPotassium [Moles/Vol]4.1 mmol/LNormal 3.7-5.1Avon HospitalComment on above:Order Comment: Specimen Type: BLOOD SPECIMEN Ordering Facility: [facility] [place] Address: [address] [place], [place] [address]Performed By: #### 61783-1, 2276-4, 29111-8 #### [facility] CLIA [id number] [address] [place] [address] [facility] HOSPITALSodium [Moles/Vol]137 mmol/HNvupyj019-031 Gayathri HospitalComment on above:Order Comment: Specimen Type: BLOOD SPECIMEN Ordering Facility: [facility] [place] Address: [address] [place], [place] [address]Performed By: #### 06951-4, 2276-4, 54089-3 #### [facility] [place] [id number] [address] [place] [address] [place] STATES OF AMERICAUrea nitrogen [Mass/Vol]23 mg/dLNormal 9-24Avon HospitalComment on above:Order Comment: Specimen Type: BLOOD SPECIMEN Ordering Facility: [facility] [place] Address: [address] [place], [place] [address]Performed By: #### 82571-9, 2276-4, 84722-3 #### [facility] CLIA [id number] [address] [place] [address] [facility] PREMIER HEALTHCB W Auto Differential panel (Bld)on 75-43-5146Bzhmrtyfa (Bld) [#/Vol]0.08 10*3/uLNormal<0.11Avon HospitalComment on above:Order Comment: Specimen Type: BLOOD SPECIMEN Ordering Facility: [facility] [place] Address: [address] [place], [place] [address]Performed By: #### 15210-2 #### [facility] IA [id number] [address] [place] [address] [place] AMERICABasophils/100 WBC (Bld)0.9 %NormalAv HospitalComment on above:Order Comment: Specimen Type: BLOOD SPECIMEN Ordering Facility: [facility] [place] Address: [address] [place], [place] [address]Performed By: #### 90868-9 #### [facility] [place] [id number] [address] [place] [address] [place] AMERICADifferential cell count method Nom (Bld) AutoNormalAvon HospitalComment on above:Order Comment: Specimen Type: BLOOD SPECIMEN Ordering Facility: [facility] [place] Address: [address] [place], [place] [address]Performed By: #### 39835-3 #### [facility] IA [id number] [address] [place] [address] [place] AMERICAEosinophils (Bld) [#/Vol]0.43 10*3/uL Normal<0.46Av HospitalComment on above:Order Comment: Specimen Type: BLOOD SPECIMEN Ordering Facility: [facility] [place] Address: [address] [place], [place] [address]Performed By: #### 89567-2 #### [facility] IA [id number] [address] [place] [address] [place] AMERICAEosinophils/100 WBC (Bld)4.6 %NormalAv HospitalComment on above:Order Comment: Specimen Type: BLOOD SPECIMEN Ordering Facility: [facility] [place] Address: [address] [place], [place] [address]Performed By: #### 00152-1 #### [facility] IA [id number] [place] [address] [place] AMERICAErythrocyte distribution width (RBC) [Ratio]12.7 %Cahcqj64.5-15.0Av HospitalComment on above:Order Comment: Specimen Type: BLOOD SPECIMEN Ordering Facility: [facility] [place] Address: [address] [place], [place] [address]Performed By: #### 70731-9 #### [facility] IA [id number] [address] [place] [address] [place] AMERICAHematocrit (Bld) [Volume fraction]46.3 % Kvyogk77.0-51.0Av HospitalComment on above:Order Comment: Specimen Type: BLOOD SPECIMEN Ordering Facility: [facility] [place] Address: [address] [place], [place] [address]Performed By: #### 44840-3 #### [facility] [id number] [place] [address] [place] AMERICAHemoglobin (Bld) [Mass/Vol]15.1 g/dL Debexm81.0-17.0Av HospitalComment on above:Order Comment: Specimen Type: BLOOD SPECIMEN Ordering Facility: [facility] [place] Address: [address] [place], [place] [address]Performed By: #### 07925-4 #### [facility] IA [id number] [address] [place] [address] [place] AMERICAImmature granulocytes (Bld) [#/Vol]0.21 10*3/uLHigh<0.10Avon HospitalComment on above:Order Comment: Specimen Type: BLOOD SPECIMEN Ordering Facility: [facility] [place] Address: [address] [place], [place] [address]Performed By: #### 91837-0 #### [facility] IA [id number] [address] [place] [address] [place] AMERICAImmature granulocytes/100 WBC (Bld)2.3 % NormalAv HospitalComment on above:Order Comment: Specimen Type: BLOOD SPECIMEN Ordering Facility: [facility] [place] Address: [address] [place], [place] [address]Performed By: #### 96420-3 #### [facility] IA [id number] [address] [place] [address] [place] AMERICALymphocytes (Bld) [#/Vol]1.59 10*3/uL Normal1.00-4.00Av HospitalComment on above:Order Comment: Specimen Type: BLOOD SPECIMEN Ordering Facility: [facility] [place] Address: [address] [place], [place] [address]Performed By: #### 02199-9 #### [facility] CLIA [id number] [address] [place] [address] [place] AMERICALymphocytes/100 WBC (Bld)17.2 %NormalAv HospitalComment on above:Order Comment: Specimen Type: BLOOD SPECIMEN Ordering Facility: [facility] [place] Address: [address] [place], [place] [address]Performed By: #### 73084-0 #### [facility] IA [id number] [address] [place] [address] [facility] (RBC) [Entitic mass]31.9 pgNormal 26.0-34.0Av HospitalComment on above:Order Comment: Specimen Type: BLOOD SPECIMEN Ordering Facility: [facility] [place] Address: [address] [place], [place] [address]Performed By: #### 71654-9 #### [facility] IA [id number] [address] [place] [address] [facility] (RBC) [Mass/Vol]32.6 g/dLNormal 30.5-36.0Av HospitalComment on above:Order Comment: Specimen Type: BLOOD SPECIMEN Ordering Facility: [facility] [place] Address: [address] [place], [place] [address]Performed By: #### 02218-4 #### [facility] IA [id number] [address] [place] [address] [facility] (RBC) [Entitic vol]97.9 fLNormal 80.0-100.0Av HospitalComment on above:Order Comment: Specimen Type: BLOOD SPECIMEN Ordering Facility: [facility] [place] Address: [address] [place], [place] [address]Performed By: #### 54903-0 #### [facility] IA [id number] [address] [place] [address] [place] AMERICAMonocytes (Bld) [#/Vol]1.13 10*3/uLHigh <0.87Av HospitalComment on above:Order Comment: Specimen Type: BLOOD SPECIMEN Ordering Facility: [facility] [place] Address: [address] [place], [place] [address]Performed By: #### 92426-2 #### [facility] IA [id number] [address] [place] [address] [place] AMERICAMonocytes/100 WBC (Bld)12.2 %NormalAv HospitalComment on above:Order Comment: Specimen Type: BLOOD SPECIMEN Ordering Facility: [facility] [place] Address: [address] [place], [place] [address]Performed By: #### 36017-4 #### [facility] IA [id number] [address] [place] [address] [place] AMERICANeutrophils (Bld) [#/Vol]5.82 10*3/uL Normal1.45-7.50Av HospitalComment on above:Order Comment: Specimen Type: BLOOD SPECIMEN Ordering Facility: [facility] [place] Address: [address] [place], [place] [address]Performed By: #### 30602-0 #### [facility] IA [id number] [address] [place] [address] [place] AMERICANeutrophils/100 WBC (Bld)62.8 %NormalAv HospitalComment on above:Order Comment: Specimen Type: BLOOD SPECIMEN Ordering Facility: [facility] [place] Address: [address] [place], [place] [address]Performed By: #### 02503-6 #### [facility] IA [id number] [address] [place] [address] [place] AMERICANucleated RBC (Bld) [#/Vol]10*3/uLNormal <0.01Av HospitalComment on above:Order Comment: Specimen Type: BLOOD SPECIMEN Ordering Facility: [facility] [place] Address: [address] [place], [place] [address]Performed By: #### 29737-8 #### [facility] IA [id number] [address] [facility] [place] [address] [place] AMERICANucleated RBC/100 WBC (Bld) [Ratio]0.0 /100 WBCNormalAvon HospitalComment on above:Order Comment: Specimen Type: BLOOD SPECIMEN Ordering Facility: [facility] [place] Address: [address] [place], [place] [address]Performed By: #### 61231-3 #### [facility] IA [id number] [address] [place] [address] [place] AMERICAPlatelet mean volume (Bld) [Entitic vol] 9.6 fLNormal9.0-12.7Avon HospitalComment on above:Order Comment: Specimen Type: BLOOD SPECIMEN Ordering Facility: [facility] [place] Address: [address] [place], [place] [address]Performed By: #### 15689-8 #### [facility] IA [id number] [address] [place] [address] [place] AMERICAPlatelets (Bld) [#/Vol]270 10*3/uLNormal 150-400Avon HospitalComment on above:Order Comment: Specimen Type: BLOOD SPECIMEN Ordering Facility: [facility] [place] Address: [address] [place], [place] [address]Performed By: #### 89186-6 #### [facility] IA [id number] [address] [facility] [place] [address] [place] AMERICARBC (Bld) [#/Vol]4.73 10*6/uLNormal 4.20-6.00Avon HospitalComment on above:Order Comment: Specimen Type: BLOOD SPECIMEN Ordering Facility: [facility] [place] Address: [address] [place], [place] [address]Performed By: #### 24271-6 #### [facility] IA [id number] [address] [facility] [place] [address] [place] AMERICAWBC (Bld) [#/Vol]9.26 10*3/uLNormal 3.70-11.00[facility]neville HospitalComment on above:Order Comment: Specimen Type: BLOOD SPECIMEN Ordering Facility: [facility] [place] Address: [address] [place], [place] [address]Performed By: #### 59495-7 #### [facility] CLIA [id number] [facility] [place] [address] [facility] HOSPITALCONFIRM BLOOD TYPEon [id number] Avon HospitalComment on above:Order Comment: Specimen Type: BLOOD SPECIMEN Ordering Facility: [facility] [place] Address: [address] [place], [place] [address]Performed By: #### CONABO #### [facility] CLIA [id number] [place] [address] [facility] HOSPITALRh Nom (Bld)NegativeNormalCleveland ClinicComment on above:Order Comment: Specimen Type: BLOOD SPECIMEN Ordering Facility: [facility] [place] Address: [address] [place], [place] [address]Performed By: #### CONABO #### [facility] CLIA [id number] [place] [address] [facility] HOSPITALPerformed By: #### [id number] #### [facility] CLIA [id number] [place] [address] [facility] HOSPITALECG COMPLETEon [id number] COMPLETE Ventricular Rate : 55 BPM Atrial Rate : 55 BPM P-R Interval : 132 ms QRS Duration : 96 ms Q-T Interval : 420 ms QTC Calculation(Bazett) : 401 ms Calculated P [place] : 57 degrees Calculated R [place] : 63 degrees Calculated T [place] : 73 degrees Sinus bradycardia Possible Left atrial enlargement Borderline ECG Confirmed by LEX ACUNA DO ([id number]) on 08/18/2023 10:08:16 AM NAME : BRADEN RODRIGUEZ PID : [id number] : 1955 Gender : Male Race : ORD : [id number] Procedure Date : Aug 06 2023 08:48:24 Edit Date : Aug 18 2023 10:08:19 Diagnosis: Sinus bradycardia Possible Left atrial enlargement Borderline ECG Confirmed by LEX ACUNA DO ([id number]) on 08/18/2023 10:08:16 AM Test Reason : HCS Location : 301 : PACC Overread By : LEX ACUNA DO Edited By : LEX ACUNA DO Referred By : KATHERINE KEITH Acquired by : brigetteNorton Audubon HospitalFerritin SerP-Conem[facility] Medical Centeron 34-10-1253Xjwcrmgo [Mass/Vol]322.8 ng/fBYwoqnp38.3-565.7Avon HospitalComment on above:Order Comment: Specimen Type: BLOOD SPECIMEN Ordering Facility: [facility] [place] Address: [address] [place] [id number] By: #### 36280-3, 2276-4, 18068-1 #### [facility] CLIA [id number] [address] [facility] [place] [address] [facility]ITALHISTORY PHYSICALon 60-19-4150JAWUUCC PHYSICALHNO ID: [id number] Author: SANAM GILL PA-C Service: ? Author Type: Physician Incident Response Consultant Type: H&P Filed: 08/06/2023 12:03 Note Text: [...] over the last year. Relieving factors include [place] and steroids. Aggravating factors include repetitive movement. [...] Iron binding capacity panelon 08-06-2023 Iron [Mass/Vol]99 ug/yTEyurvz55-511Gjqz HospitalComment on above:Order Comment: Specimen Type: BLOOD SPECIMEN Ordering Facility: [facility] [place] Address: [address] [place], [place] [address]Gcbcqpxnr By: #### 38956-0, 2276-4, 75213-2 #### [facility] CLIA [id number] [address] [facility] [place] [address] [place] OF AMERICAIron binding capacity [Mass/Vol]252 ug/dL Onapdg337-602Ttvp HospitalComment on above:Order Comment: Specimen Type: BLOOD SPECIMEN Ordering Facility: [facility] [place] Address: [address] [place], [place] [address]Performed By: #### 76677-4, 2276-4, 71455-6 #### [facility] CLIA [id number] [address] [place] [address] [place] OF AMERICAIron/TIBC [Molar ratio]39.3 %Normal 15.0-57.0Intermountain HealthcareComment on above:Order Comment: Specimen Type: BLOOD SPECIMEN Ordering Facility: [facility] [place] Address: [address] [place], [place] [address]Performed By: #### 07772-7, 2276-4, 32937-4 #### [facility] CLIA [id number] [address] [place] [address] [place] OF AMERICALaboratory - Blood bankon 44-24-4893FHD group Nom (Bld)OCleveland ClinicNo Panel Informationon 06-76-8595Fjnrtzkzi ClinicSTAPHYLOCOCCUS AUREUS AND MRSA SCREEN, PCR, NASALon 08-06-2023S. aureus and MRSA panel BARBARA+probe (Nose)Not detectedNormalLea Regional Medical Center Comment on above:Order Comment: Specimen Type: SWAB Ordering Facility: [facility] [place] Address: [address] [place], [place] [address]Performed By: #### SAPCR #### [facility] CLIA [id number] [address] [place] [address] [id number] [place] [address] [place] OF AMERICATYPE AND SCREEN,30 DAYon 50-72-6805Vqhzu group antibody screen QlNegativeMetrohealth Cleveland Heights Medical CenterABOONormalIntermountain HealthcareComment on above:Order Comment: Specimen Type: BLOOD SPECIMEN Ordering Facility: [facility] [place] Address: [address] [place], [place] [address]Performed By: #### [id number] #### [facility] CLIA [id number] [address] [place] [address] [place] OF AMERICAHIstorical Ab Scr StatusNegativeNormal [facility] Cleveland Heights Medical CenterComment on above:Order Comment: Specimen Type: BLOOD SPECIMEN Ordering Facility: [facility] [place] Address: [address] [place], [place] [address]Performed By: #### [id number] #### [facility] CLGA [id number] [address] [place] [address] [place] OF AMERICACNPNon 94-95-4717HKFXCsqfrkWtnpgociz Clinic ClevelandCT LUMBAR SPINE WO IVCONon 55-81-7656JW LUMBAR SPINE WO IVCON* * *Final Report* * * DATE OF EXAM: May 04 2023 8:14AM [facility] 0508 - CT LUMBAR SPINE [...] caudal rib-bearing vertebra is counted as T12. Keying Machine Operator (topogram) images: No significant additional findings Alignment: [...] crest and there are 5 lumbar-type vertebrae. Card Cleaner: PSCB Transcribe Date/Time: May 04 2023 9:20A Dictated by : CLAIRE LAZAR MD This examination was interpreted and the report reviewed and electronically signed by: CLAIRE LAZAR MD on May 04 2023 9:32AM EST [id number] [facility] Lumbar spine [facility] 51-22-3044Hpxnlsght ClinicXR Lumbar spine Views W flexion and W extensionon 38-67-5604Pxuyrczvc ClinicXR Thoracic and lumbar spine Views for scoliosis W standingon 05-50-6657Inytttynd ClinicCreatinine (Bld) [Mass/Vol]Ordered By: Shae Guillory on 24-24-9775Djrwiszgfp [Mass/Vol]1.0 mg/dL0.6-1.3FEast Liverpool City HospitalComment on above:ER/ESD physician is notified/shown all ISTAT results.Critical values may be confirmed by laboratorytesting ifdeemed necessary by ER attending doctor.CT ABDOMEN W CONon 55-17-4594ZR ABDOMEN W CON EXAMINATION: CT ABDOMEN W [...] Electronically authenticated by: WILTON NICHOLE Date: 2022-04-12 08:12[facility] Lutheran HospitalCREATININEon 32-38-7094Eiypnqzwfy [Mass/Vol]0.80 mg/dLNormal 0.70-1.30C[facility] Va Medical CenterComment on above:Performed By: #### PSASC, VITAD #### [facility] [address] [address] [address] Max GrandeGFR-AF CITIZEN OF [place]>60Normal>=60The [facility] CampusComment on above:Performed By: #### PSASC, VITAD #### [facility] [address] [address] [address] Max GrandeGFR-NON AF CITIZEN OF [place]>60Normal>=60The [facility] CampusComment on above:Performed By: #### PSASC, VITAD #### [facility] [address] [address] [address] Max PeckXR ABD FLAT UP_PA Kuldip 68-41-2970CD ABD FLAT UP_PA CHACUTE ABDOMINAL SERIES WITH [...] Electronically authenticated by: EDENILSON KNIGHT Date: 2022-03-16 10:42[facility] Lutheran HospitalLIPID PROFILEon 51-80-9971RXJM-HDL RATIO NORMSEE BELOWNormal The [facility] CampusComment on above:Result Comment: 3.3 - 4.4 LOW RISK 4.4 - 7.1 AVERAGE RISK 7.1 - 11.0 MODERATE RISK >11.0 HIGH RISKPerformed By: #### PSASC, VITAD #### [facility] [address] [address] [address] Max PeckCholesterol [Mass/Vol]163 mg/dLNormal<=200[facility] Comment on above:Performed By: #### PSASC, VITAD #### [facility] [address] [address] [address] Max PeckCholesterol in HDL [Mass/Vol]50 mg/uRZqhsne39-48Wzd [facility] CampusComment on above:Performed By: #### PSASC, VITAD #### [facility] [address] [place] [address] Dr. Max PeckCholesterol in LDL [Mass/Vol]100.0 mg/dLNoKnox Community HospitalComment on above:Performed By: #### PSAPOP, VITAD #### [facility] [address] [place] [address] Dr. Max Gomezesterjanki.total/Cholesterol in HDL [Mass ratio]3.3 {ratio} NormalThe [facility] CampusComment on above:Performed By: #### PSASC, VITAD #### [facility] [address] [place] [address] Dr. Max Moffett NORMAL> or = 60 mg/dl - LOW CARDIOVASCULAR RISK <40 mg/dl - HIGH CARDIOVASCULAR RISKCleveland Clinic Lutheran HospitalComment on above:Performed By: #### PSAOPP, VITAD #### [facility] [address] [place] [address] Dr. Max Rdeman CALC NORMALSEE BELOWNoKnox Community HospitalComment on above:Result Comment: <100 mg/dl OPTIMAL 100 - 129 mg/dl NEAR OR ABOVE OPTIMAL 130 - 159 mg/dl BORDERLINE HIGH 160 - 189 mg/dl HIGH >190 mg/dl VERY HIGH Performed By: #### PSAPOP, VITAD #### [facility] [address] [place] [address] Dr. Max PeckTriglyceride [Mass/Vol]65 mg/dLNormal<=150The [facility] Comment on above:Performed By: #### PSASC, VITAD #### [facility] [address] [place] [address] Dr. Max PeckVLDL CALC13.0 mg/dLNoKnox Community HospitalComment on above: Performed By: #### PSASC, VITAD #### [facility] [address] [place] [address] Dr. Max PeckPROMykel 14(COMP METB)on 73-78-1662Wdkjwjf [Mass/Vol]3.9 g/dLNormal 3.4-5.0The [facility] CampusComment on above:Performed By: #### PSASC, VITAD #### [facility] [address] [address] [address] Max PeckAlbumin/Globulin [Mass ratio]1.3 {ratio}NormalThe [facility] CampusComment on above:Performed By: #### PSASC, VITAD #### [facility] [address] [address] [address] Max HillmanP [Catalytic activity/Vol]79 U/AXjnaxh30-517Suu [facility] CampusComment on above:Performed By: #### PSASC, VITAD #### [facility] [address] [address] [address] Max HillmanT [Catalytic activity/Vol]24 U/DUrwlof72-47Fzs [facility] CampusComment on above:Performed By: #### PSASC, VITAD #### [facility] [address] [place] [address] Dr. Max Brockon gap [Moles/Vol]12.3 mmol/LNormalThe [facility] Comment on above:Performed By: #### PSASC, VITAD #### [facility] [address] [place] [address] Dr. Max PeckAST [Catalytic activity/Vol]25 U/QWximeb47-89Fmb [facility] Regional Medical Centerment on above:Performed By: #### PSASC, VITAD #### [facility] [address] [place] [address] Dr. Max PeckBilirubin [Mass/Vol]1.4 mg/dLCritically high0.2-1.0The [facility] CampusComment on above:Performed By: #### PSASC, VITAD #### [facility] [address] [place] [address] Dr. Max PeckCalcium [Mass/Vol]9.1 mg/dLNormal8.5-10.1The [facility] Comment on above:Performed By: #### PSASC, VITAD #### [facility] [address] [place] [address] Dr. Max PeckChloride [Moles/Vol]100 mmol/LRkincr93-439Rgq [facility] Comment on above:Performed By: #### PSASC, VITAD #### [facility] [address] [address] [address] Max PeckCO2 [Moles/Vol]30.7 mmol/TRwexcx20.0-32.0[facility] Comment on above:Performed By: #### PSASC, VITAD #### [facility] [address] [place] [address] Dr. Max PeckCreatinine [Mass/Vol]0.86 mg/dLNormal0.70-1.30[facility] Medical CenterComment on above:Performed By: #### PSASC, VITAD #### [facility] [address] [place] [address] Dr. Max GrandeGFR-AF XLADYHHC68 mL/min/1.76x9Qpoiko>=60[facility] Comment on above:Performed By: #### PSAPOP, VITAD #### [facility] [address] [place] [address] Dr. Max Gonzalez-NON AF TFJYINKO64 mL/min/1.47l5Dgdfxi>=60The [facility] CampusComment on above:Performed By: #### PSAPOP, VITAD #### [facility] [address] [place] [address] Dr. Max PeckGlobulin (S) [Mass/Vol]3.1 g/dLNormalThe [facility] CampusComment on above:Performed By: #### PSASC, VITAD #### [facility] [address] [place] [address] Dr. Max PeckGlucose [Mass/Vol]102 mg/jDXwxnhy22-484FaoCincinnati Va Medical Center Comment on above:Performed By: #### PSASC, VITAD #### [facility] [address] [place] [address] Dr. Max PeckPotassium [Moles/Vol]4.0 mmol/LNormal3.5-5.1[facility] Comment on above:Performed By: #### PSASC, VITAD #### [facility] [address] [place] [address] Dr. Max PeckProtein [Mass/Vol]7.0 g/dLNormal6.4-8.2The [facility] Comment on above:Performed By: #### PSASC, VITAD #### [facility] [address] [address] [address] Max PeckSodium [Moles/Vol]139 mmol/EOxdggg005-920Gda [facility] Comment on above:Performed By: #### PSASC, VITAD #### [facility] [address] [address] [address] Max PeckUrea nitrogen [Mass/Vol]10.0 mg/dLNormal7.0-18.0The [facility] CampusComment on above:Performed By: #### PRUDENCIO, VITAD #### [facility] [address] [place] [address] Dr. Max Sherwood nitrogen/Creatinine [Mass ratio]11.6 mg/mgNoKnox Community HospitalComment on above:Performed By: #### PRUDENCIO, VITAD #### [facility] [address] [place] [address] Dr. Max PeckXR CSPINE MIN 4 VIEWSon 55-47-5833JG CSPINE MIN 4 VIEWS EXAMINATION: XR CSPINE [...] Electronically authenticated by: WILTON NICHOLE Date: 2022-01-19 07:14NoKnox Community HospitalHEPATITIS PANEL, ACUTEon 00-25-7960ZUhBz ScreenNegativeNormal NegativeThe Javed HospitalComment on above:Performed By: #### PSASC, VITAD #### [facility] [address] [place] [address] Dr. Max PeckHCV AB<0.9Phqjxb0.0-0.9The [facility] CampusComment on above: Performed By: #### PSASC, VITAD #### [facility] [address] [place] [address] Dr. Max Perla A Ab, IgMNegativeNormalNegativeThe [facility] CampusComment on above:Performed By: #### PSASC, VITAD #### [facility] [address] [place] [address] Dr. Max Perla B Core Ab, IgMNegativeNormalNegativeCincinnati Va Medical Center Comment on above:Performed By: #### PSASC, VITAD #### [facility] [address] [place] [address] Dr. Max PeckInterpretation:CommentNormalThe [facility] CampusCompromedica mon[facility] hospital on above:Result Comment: Negative Not infected with HCV, unless recent infection is suspected or other evidence exists to indicate HCV infection.Performed By: #### PSASC, VITAD #### [facility] [address] [place] [address] Dr. Max PeckINSULINon 00-24-3990Vlcchtc87.1 uIU/mLNormal2.6-24.9The [facility] CampusComment on above:Performed By: #### PSASC, VITAD #### [facility] [address] [place] [address] Dr. Max PeckTESTOSTERONE, TOTALon 83-41-9860Xlwqicygcmqu [Mass/Vol]766 ng/dL Zmshjy455-673Vpz [facility] CampusComment on above:Result Comment: Adult male reference interval is based on a population of healthy nonobese males (BMI <30) between 19 and 39 years old. yeni Espinal.al. JCEM 2017,102;8321-4243. PMID: [id number].Performed By: #### PSASC, VITAD #### [facility] [address] [place] [address] Dr. Yilan ChangCBC AUTO DIFFon 64-80-7482GCYY #0.0 103/ulNormal0.0-0.1The Community Regional Medical Centerment on above:Performed By: #### PSAPOP, VITAD #### [facility] [address] [place] [address] Dr. Max PeckBasophils/100 WBC (Bld)0.4 %Normal0.2-2.0[facility] Comment on above:Performed By: #### PSASC, VITAD #### [facility] [address] [place] [address] Dr. Max Amanda #0.0 103/ulNormal0.0-0.7The [facility] CampusComment on above: Performed By: #### PSASC, VITAD #### [facility] [address] [place] [address] Dr. Max Grandeosinophils/100 WBC (Bld)0.3 %Critically low0.9-7.0The [facility] CampusComment on above:Performed By: #### PSAPOP, VITAD #### [facility] [address] [place] [address] Dr. Max Granderythrocyte distribution width (RBC) [Ratio]12.5 %Ggfxxh60.0-15.0 The Community Regional Medical Centerment on above:Performed By: #### PSAPOP, VITAD #### [facility] [address] [place] [address] Dr. Max PeckHematocrit (Bld) [Volume fraction]41.5 %Critically low42.0-54.0 [facility] City Hospitalment on above:Performed By: #### PSASC, VITAD #### [facility] [address] [place] [address] Dr. Max PeckHemoglobin (Bld) [Mass/Vol]14.0 g/vLUfktds73.0-18.0The [facility] Medical Centerment on above:Performed By: #### PSASC, VITAD #### [facility] [address] [place] [address] Dr. Max Encinas #0.09 10e3/ulCritically high0.00-0.03The [facility] Comment on above:Performed By: #### PRUDENCIO, VITAD #### [facility] [address] [place] [address] Dr. Max Encinas %0.9 %Critically high0.0-0.5The [facility] CampusComment on above:Performed By: #### PRUDENCIO, VITAD #### [facility] [address] [place] [address] Dr. Max García #2.6 103/ulNormal1.2-3.8The [facility] CampusComment on above:Performed By: #### PRUDENCIO, VITAD #### [facility] [address] [place] [address] Dr. Max Landahocytes/100 WBC (Bld)25.0 %Qtydud39.5-60.0The [facility] CampusComment on above:Performed By: #### PRUDENCOI, VITAD #### [facility] [address] [place] [address] Dr. Max MoralesSELECT [facility]ICAL [facility] DIFF REQNONormalThe [facility] CampusComment on above: Performed By: #### PRUDENCIO, VITAD #### [facility] [address] [place] [address] Dr. Max Flores (RBC) [Entitic mass]32.6 lsVmdkda59.9-34.0The [facility] CampusComment on above:Performed By: #### PRUDENCIO, VITAD #### [facility] [address] [place] [address] Dr. Max Flores (RBC) [Mass/Vol]33.7 g/aUWwhnke59.9-35.2The [facility] CampusComment on above:Performed By: #### PRUDENCIO, VITAD #### [facility] [address] [place] [address] Dr. Max Flores (RBC) [Entitic vol]96.7 fLCritically high80.0-94.0The [facility] CampusComment on above:Performed By: #### NINASC, VITAD #### [facility] [address] [place] [address] Dr. Max Fay #1.2 103/ulCritically high0.3-0.8The [facility] Comment on above:Performed By: #### PSASC, VITAD #### [facility] [address] [place] [address] Dr. Max Crocytes/100 WBC (Bld)11.1 %Normal1.7-12.0The [facility] Comment on above:Performed By: #### PSASC, VITAD #### [facility] [address] [place] [address] Dr. Max Champion #6.4 103/ulNormal1.4-6.5The [facility] CampusComment on above:Performed By: #### PSASC, VITAD #### [facility] [address] [place] [address] Dr. Max Pattersonutrophils/100 WBC (Bld)62.3 %Kdwqaf54.0-75.0The [facility] CampusComment on above:Performed By: #### PSASC, VITAD #### [facility] [address] [place] [address] Dr. Max Montgomery mean volume (Bld) [Entitic vol]9.6 fLNormal9.5-13.5The [facility] CampusComment on above:Performed By: #### PSASC, VITAD #### [facility] [address] [place] [address] Dr. Max PeckPLT323 103/qmZmkdji813-328Hef [facility] CampusComment on above: Performed By: #### PSASC, VITAD #### [facility] [address] [place] [address] Dr. Max PeckRBC4.29 106/ulCritically low4.70-6.10The [facility] CampusComment on above:Performed By: #### PSASC, VITAD #### [facility] [address] [place] [address] Dr. Max PeckWBC10.3 103/ulNormal4.0-11.0The [facility] CampusComment on above:Performed By: #### PSASC, VITAD #### [facility] [address] [place] [address] Dr. Max Trejo THYROXINE INDEX T7on 33-10-7223CBM6.30Elmppt9.30-4.50The [facility] CampusCompromedica [facility] on above:Performed By: #### TSH, URIC, T7, LIPID, CMP #### [facility] [address] [address] [address] Max PeckT3U36.0 %Bcwfqs96.0-40.0The [facility] CampusComment on above: Performed By: #### TSH, URIC, T7, LIPID, CMP #### [facility] [address] [place] [address] Dr. Max PeckT4 [Mass/Vol]6.70 ug/dLNormal4.50-12.10The [facility] Comment on above:Performed By: #### TSH, URIC, T7, LIPID, CMP #### [facility] [address] [place] [address] Dr. Max PeckGLYCOHEMOGLOBIN A1Con 10-32-6799ZBJ RECOMMENDATIONSEE BELOWNormal The [facility] CampusCompromedica [facility] on above:Result Comment: ADA RECOMMENDED LIMIT 4.0 - 6.0 ADA THERAPEUTIC TARGET < 7.0 ACTION SUGGESTED > 7.0Performed By: #### PSASC, VITAD #### [facility] [address] [place] [address] Dr. Max PeckGlucose [Mass/Vol]97 mg/dLNormalThe [facility] CampusCompromedica [facility] on above:Performed By: #### PSASC, VITAD #### [facility] [address] [place] [address] Dr. Max PeckHbA1c (Bld) [Mass fraction]5.0 %Normal4.5-6.2The [facility] CampusComment on above:Performed By: #### PSASC, VITAD #### [facility] [address] [place] [address] Dr. Max PeckLIPID PROFILEon 94-26-3426USQY-HDL RATIO NORMSFlower HospitalComment on above:Result Comment: 3.3 - 4.4 LOW RISK 4.4 - 7.1 AVERAGE RISK 7.1 - 11.0 MODERATE RISK >11.0 HIGH RISKPerformed By: #### TSH, URIC, T7, LIPID, CMP #### [facility] [address] [address] [address] Max PeckCholesterol [Mass/Vol]221 mg/dLCritically high<=200The [facility] on above:Performed By: #### TSH, URIC, T7, LIPID, CMP #### [facility] [address] [address] [address] Max Gomezesterol in HDL [Mass/Vol]41 mg/aATjjqhy28-86HfvWright-Patterson Medical Center on above:Performed By: #### TSH, URIC, T7, LIPID, CMP #### [facility] [address] [place] [address] Dr. Max Gomezesterol in LDL [Mass/Vol]157.2 mg/dLCleveland Clinic Lutheran HospitalCompromedica monroe regional hospital on above:Performed By: #### TSH, URIC, T7, LIPID, CMP #### [facility] [address] [place] [address] Dr. Max Hendrickson.total/Cholesterol in HDL [Mass ratio]5.4 {ratio} NormalWright-Patterson Medical Center on above:Performed By: #### TSH, URIC, T7, LIPID, CMP #### [facility] [address] [place] [address] Dr. Max Moffett NORMAL> or = 60 mg/dl - LOW CARDIOVASCULAR RISK <40 mg/dl - HIGH CARDIOVASCULAR RISKSelect Medical Specialty [facility] [place] on above:Performed By: #### TSH, URIC, T7, LIPID, CMP #### [facility] [address] [place] [address] Dr. Max PeckLDL CALC NORMALSEE [facility] on above:Result Comment: <100 mg/dl OPTIMAL 100 - 129 mg/dl NEAR OR ABOVE OPTIMAL 130 - 159 mg/dl BORDERLINE HIGH 160 - 189 mg/dl HIGH >190 mg/dl VERY HIGH Performed By: #### TSH, URIC, T7, LIPID, CMP #### [facility] [address] [address] [address] Max PeckTriglyceride [Mass/Vol]114 mg/dLNormal<=150The [facility] Comment on above:Performed By: #### TSH, URIC, T7, LIPID, CMP #### [facility] [address] [address] [address] Max PeckVLDL CALC22.8 mg/dLNormalThe [facility] CampusComment on above: Performed By: #### TSH, URIC, T7, LIPID, CMP #### [facility] [address] [address] [address] Max Chance 14(COMP METB)on 22-54-9410Djylppz [Mass/Vol]3.9 g/dLNormal 3.4-5.0The [facility] CampusComment on above:Performed By: #### TSH, URIC, T7, LIPID, CMP #### [facility] [address] [address] [address] Max PeckAlbumin/Globulin [Mass ratio]1.3 {ratio}NormalThe [facility] CampusComment on above:Performed By: #### TSH, URIC, T7, LIPID, CMP #### [facility] [address] [address] [address] Max Goldstein [Catalytic activity/Vol]63 U/FVdetxf68-243Gqc [facility] CampusComment on above:Performed By: #### TSH, URIC, T7, LIPID, CMP #### [facility] [address] [address] [address] Max Yung [Catalytic activity/Vol]75 U/LCritically ljbt21-45Hkf [facility] CampusComment on above:Performed By: #### TSH, URIC, T7, LIPID, CMP #### [facility] [address] [address] [address] Max Garduno gap [Moles/Vol]8.8 mmol/LNormalThe [facility] CampusComment on above:Performed By: #### TSH, URIC, T7, LIPID, CMP #### [facility] [address] [address] [address] Max PeckAST [Catalytic activity/Vol]41 U/LCritically kjfk62-11Hie [facility] CampusComment on above:Performed By: #### TSH, URIC, T7, LIPID, CMP #### [facility] [address] [address] [address] Max PeckBilirubin [Mass/Vol]0.8 mg/dLNormal0.2-1.0The [facility] Comment on above:Performed By: #### TSH, URIC, T7, LIPID, CMP #### [facility] [address] [place] [address] Dr. Max PeckCalcium [Mass/Vol]9.1 mg/dLNormal8.5-10.1The [facility] Comment on above:Performed By: #### TSH, URIC, T7, LIPID, CMP #### [facility] [address] [place] [address] Dr. Max PeckChloride [Moles/Vol]102 mmol/FIwtotj73-952Oyy [facility] Comment on above:Performed By: #### TSH, URIC, T7, LIPID, CMP #### [facility] [address] [place] [address] Dr. Max PeckCO2 [Moles/Vol]33.8 mmol/LCritically high21.0-32.0The [facility] CampusComment on above:Performed By: #### TSH, URIC, T7, LIPID, CMP #### [facility] [address] [place] [address] Dr. Max PeckCreatinine [Mass/Vol]0.80 mg/dLNormal0.70-1.30The [facility] CampusComment on above:Performed By: #### TSH, URIC, T7, LIPID, CMP #### [facility] [address] [place] [address] Dr. Santana ChangEGFR-AF CITIZEN [place]>60Normal>=60The [facility] CampusComment on above:Performed By: #### TSH, URIC, T7, LIPID, CMP #### [facility] [address] [address] [address] Max GrandeGFR-NON AF CITIZEN OF [place]>60Normal>=60The [facility] CampusComment on above:Performed By: #### TSH, URIC, T7, LIPID, CMP #### [facility] [address] [place] [address] Dr. Max PeckGlobulin (S) [Mass/Vol]2.9 g/dLNormalThe [facility] CampusComment on above:Performed By: #### TSH, URIC, T7, LIPID, CMP #### [facility] [address] [place] [address] Dr. Max PeckGlucose [Mass/Vol]99 mg/wNDwcggj67-079BjiCincinnati Va Medical Center Comment on above:Performed By: #### TSH, URIC, T7, LIPID, CMP #### [facility] [address] [place] [address] Dr. Max PeckPotassium [Moles/Vol]3.6 mmol/LNormal3.5-5.1The [facility] Comment on above:Performed By: #### TSH, URIC, T7, LIPID, CMP #### [facility] [address] [place] [address] Dr. Max PeckProtein [Mass/Vol]6.8 g/dLNormal6.4-8.2The [facility] Comment on above:Performed By: #### TSH, URIC, T7, LIPID, CMP #### [facility] [address] [place] [address] Dr. Max PeckSodium [Moles/Vol]141 mmol/DLovdht246-275Abu [facility] Comment on above:Performed By: #### TSH, URIC, T7, LIPID, CMP #### [facility] [address] [place] [address] Dr. Max PeckUrea nitrogen [Mass/Vol]16.0 mg/dLNormal7.0-18.0The [facility] CampusComment on above:Performed By: #### TSH, URIC, T7, LIPID, CMP #### [facility] [address] [address] [address] Max PeckUrea nitrogen/Creatinine [Mass ratio]20.0 mg/mgNoKnox Community HospitalComment on above:Performed By: #### TSH, URIC, T7, LIPID, CMP #### [facility] [address] [place] [address] Dr. Max NanceHobehzad 97-94-1536FXD2.544 uIU/mLNormal0.358-3.740The [facility] CampusComprom[facility] on above:Performed By: #### TSH, URIC, T7, LIPID, CMP #### [facility] [address] [place] [address] Dr. Max PeckURIC ACID SERUMon 51-45-8434Zgaqi [Mass/Vol]5.4 mg/dLNormal 3.5-7.2The [facility] CampusComment on above:Performed By: #### TSH, URIC, T7, LIPID, CMP #### [facility] [address] [place] [address] Dr. Max PeckVITAMIN D 25 OHon 31-01-1129ZZQ D 25-OH51.2 ng/mLNormalThe [facility] CampusCompromed[facility] on above:Performed By: #### PRUDENCIO, VITAD #### [facility] [address] [place] [address] Dr. Max Hernandez RANGESSEE BELOWCleveland Clinic Lutheran HospitalComment on above: Result Comment: <20 ng/mL Vit D deficient 20 - <30 ng/mL Vit D insufficient 30 - 100 ng/mL Vit D sufficient >100 ng/mL Potential ToxicityPerformed By: #### PSASC, VITAD #### [facility] [address] [place] [address] Dr. Max PeckCardiovascular Lab Reporton 24-80-1232Hqafltutaaqrdt Lab Report [facility] Patient Name: Braden Rodriguez [facility] MR #: [id number] Physician: Domenic Kohler MD Department of Service Date: 07/31/2020 Medicine Birthdate: 1955 Division of Room #: CC Cardiology Adult Cardiovascular Services [facility] [address] [place] [id number] Cardiovascular Laboratory Report The patient is a [...] Kohler MD Date Trans: 09/01/2020 10:51 A/sergio DN_JN:[id number] cc: Ester Cain M.D. [id number] [facility] [id number] Surgical Hospital at SouthwoodsLUMBAR SPINE 2 OR 3 VIEWSon 38-08-0746TVUSQQ SPINE 2 OR 3 VIEWSSTUDY: LUMBAR SPINE 2 OR 3 VIEWS; 05/19/2019 9:49 am INDICATION: PAIN. COMPARISON: None. ACCESSION NUMBER(S): [id number] ORDERING CLINICIAN: Edgar Fairchild FINDINGS: No fracture or subluxation of the lumbar spine. L3-L5 laminectomy defects. Moderate to severe multilevel degenerative disc height loss with endplate sclerosis and osteophyte formation. Multilevel facet arthropathy. Moderate dextroscoliosis centered at L2. IMPRESSION: Severe degenerative changes of the lumbar spine. L3-L5 laminectomy defects.NormalSt. Orchard Hospital Vital Signs Date TimeVital SignValuePerforming NnakcoefkErvvalls91-71-9797 16:07-0400Body wqzecchcftr46.71 [degF]Mahamed Gray DPM Work Phone: [facility] HospitalMihjjapxfc60-78-8843 16:07-0400Diastolic blood azzfzedq07 mm[Hg]Mahamed Gray DPM Work Phone: [facility] HospitalTwmpgqcpva78-06-4032 16:07-0400Heart rate48 /min Mahamed Gray DPM Work Phone: [facility] HospitalNndmpywwei44-91-1897 16:07-0400Systolic blood nemfnesv388 mm[Hg]Mahamed Gray DPM Work Phone: [facility] HospitalWwkifhxlfv49-84-6842 10:36-0400Body yiizzo251.88 cmEster Cain MD Work Phone: [phone] [place], [place] 8911707-30-2025 10:36-0400 Body mass index (BMI) [Ratio]28.5 kg/l9PjnzvbhEster Cain MD Work Phone: [phone] [place], [place] 8911707-30-2025 10:36-0400 Body cqqrnnipanf60.4 [degF]Ester Cain MD Work Phone: [phone]07-30-2025 10:36-0400 Body niurtm87.25 kgEster Cain MD Work Phone: [phone]07-30-2025 10:36-0400 Diastolic blood tmvekozn28 mm[Hg]Ester Cain MD Work Phone: [phone] [place], [place] 8911707-30-2025 10:36-0400 Heart rate50 /minDinez Cain MD Work Phone: [phone] [place], [place] 8911707-30-2025 10:36-0400 SaO2% (BldA) [Mass fraction]100 %Ester Cain MD Work Phone: [phone] [place], [place] 8911707-30-2025 10:36-0400 Systolic blood foiofuxh851 mm[Hg]Ester Cain MD Work Phone: [phone]07-11-2025 10:41-0400 Body yfiandqtewu99.71 [degF]Mahamed Gray DPM Work Phone: [facility] HospitalEmrbnleeiz74-63-2879 10:41-0400Diastolic blood ncytfgbw77 mm[Hg]Mahamed Gray DPM Work Phone: [facility] HospitalBkpizmjoxi77-22-5944 10:41-0400Heart rate58 /min Mahamed Gray DPM Work Phone: [facility] HospitalCxyrxplsgh73-41-6288 10:41-0400Systolic blood ezcdqmsg20 mm[Hg]Mahamed Gray DPM Work Phone: [facility] HospitalQcgtfczesa99-52-2828 09:53-0400Body temperature 98.29 [degF]Nurse [address]04-09-2025 09:53-0400Diastolic blood fapckmya93 mm[Hg]Nurse [address]04-09-2025 09:53-0400Heart rate59 /min Nurse [address]04-09-2025 09:53-0238DmE1% (BldA) [Mass fraction]97 % Nurse [address]04-09-2025 09:53-0400Systolic blood ciaxgjij366 mm[Hg] Nurse [address]03-30-2025 20:51-4987JcO1% (BldA) [Mass fraction]96 % ESTER [facility] CenterComment on above:Order Comment: Specimen Type: ARTERIAL BLOOD SPECIMENOrdering Facility: [facility] Address: [address] [place], [place] [address]Performed By: #### ALLBG ####[facility] LABCLIA [id number] [place] [address] [place] MFNRKNI32-09-4616 11:13-0500Body height 182.9 cmKatherine Keith MD Work Phone: [facility]03-05-2025 11:13-0500Body mass index (BMI) [Ratio]27.8 kg/d4VwadbwqKatherine Keith MD Work Phone: [facility]03-05-2025 11:13-0500Body .99 kgKatherine Keith MD Work Phone: [phone] 955-8077[address]05-2025 11:13-0500Diastolic blood nnfgetiy36 mm[Hg]Katherine Keith MD Work Phone: 1([phone] 531-374001 [address]05-2025 11:13-0500Heart rate73 /min Katherine Keith MD Work Phone: [address] [address]-05-2025 11:13-0500Respiratory rate 19 /minDritu Keith MD Work Phone: [address] [address]-05-2025 11:13-0500Systolic blood zmumjlpz476 mm[Hg]Katherine Keith MD Work Phone: [address] [address]-05-2025 08:41-0500Body nihssa748.9 cmAjack Boss MD Work Phone: [phone]03-05-2025 08:41-0500Body mass index (BMI) [Ratio]28.79 kg/q1ZgnziRhona Boss MD Work Phone: [phone] [address]-05-2025 08:41-0500Body temperature 97 [degF]Rhona Boss MD Work Phone: [phone] [address]-05-2025 08:41-0500Body qtaqbz39.3 kgRhona Boss MD Work Phone: [phone] [address]-05-2025 08:41-0500Diastolic blood dbxojaoa86 mm[Hg]Rhona Boss MD Work Phone: [phone] [address]-05-2025 08:41-0500Heart rate67 /min Rhona Boss MD Work Phone: [phone] [address]-05-2025 08:41-1587GaJ9% (BldA) [Mass fraction]100 %Rhona Boss MD Work Phone: [phone] [address]-05-2025 08:41-0500Systolic blood ymnjoqqh835 mm[Hg]Rhona Boss MD Work Phone: [facility]11-05-2024 13:17-0500Body csosxo789.9 cmKatherine Keith MD Work Phone: [facility]11-05-2024 13:17-0500Body mass index (BMI) [Ratio]27.8 kg/s1ZeogqjhKatherine Keith MD Work Phone: [facility]11-05-2024 13:17-0500Body .99 kgKatherine Keith MD Work Phone: [place] [address]-05-2024 13:17-0500Diastolic blood tssiozan51 mm[Hg]Katherine Keith MD Work Phone: [address] [address]-05-2024 13:17-0500Heart rate84 /min Katherine Keith MD Work Phone: [address] [address]-05-2024 13:17-0500Systolic blood mm[Hg]Katherine Keith MD Work Phone: [facility]09-04-2024 14:16-0400Body cyuefp893.9 cmKatherine Keith MD Work Phone: [facility]09-04-2024 14:16-0400Body mass index (BMI) [Ratio]27.84 kg/k8OgezcsgKatherine Keith MD Work Phone: [facility]09-04-2024 14:16-0400Body jqtmyk11.1 kgKatherine Keith MD Work Phone: [address] [address]-04-2024 14:16-0400Diastolic blood hjnwueba36 mm[Hg]Katherine Keith MD Work Phone: [address] [place] [address]-04-2024 14:16-0400Heart rate71 /min Katherine Keith MD Work Phone: [address] [address]-04-2024 14:16-0400Respiratory rate 18 /minDritu Keith MD Work Phone: [facility]09-04-2024 14:16-1206PkI5% (BldA) [Mass fraction]100 %Katherine Keith MD Work Phone: [facility] CenterComment on above:room dzy65-48-5375 14:16-0400Systolic blood nqwbuboa861 mm[Hg]Katherine Keith MD Work Phone: [facility]09-03-2024 13:43-0400Blood Pressure LocationMichael NILL [phone]-GhcmrUniversity [facility]als [facility]09-03-2024 13:43-0400Diastolic blood jtncvopd47 mm[Hg]Camryn NILL [phone]-JsklfUniversity Hospitals Portage [facility] Center09-03-2024 13:43-0400Heart rate72 /minMichael NILL [phone]-DrllkUniversity Hospitals [facility]09-03-2024 13:43-0400Respiratory rate16 /minMichael NILL [phone]-NctzpUniversity Hospitals Port[facility]09-03-2024 13:43-0400Systolic blood mm[Hg]Camryn NILL [phone]-EmqmyUniversity Hospitals Port[facility] Center05-29-2024 09:43-0400Body .9 cmPacc 1 Other Phone: [facility]05-29-2024 09:43-0400Body mass index (BMI) [Ratio]26.43 kg/m2Pacc 1 Other Phone: [facility]05-29-2024 09:43-0400Body temperature 98.1 [degF]Pacc 1 Other Phone: [facility]05-29-2024 09:43-0400Body utrzwk98.4 kgPacc 1 Other Phone: [facility]05-29-2024 09:43-0400Diastolic blood sauvkskn52 mm[Hg]Pacc 1 Other Phone: [facility]05-29-2024 09:43-0400Heart rate56 /minPacc 1 Other Phone: [facility]05-29-2024 09:43-0400Respiratory rate 18 /minPacc 1 Other Phone: [facility]05-29-2024 09:43-6015EvC8% (BldA) [Mass fraction]100 %Pacc 1 Other Phone: [facility]05-29-2024 09:43-0400Systolic blood wqeegkta275 mm[Hg]Pacc 1 Other Phone: [facility]02-21-2024 11:31-0500Body ukwcgl934.9 cmKatherine Keith MD Work Phone: [facility]02-21-2024 11:31-0500Body uxpmfm48.5 kgKatherine Keith MD Work Phone: [facility]02-21-2024 11:31-0500Diastolic blood rvissgma49 mm[Hg]Katherine Keith MD Work Phone: [facility]02-21-2024 11:31-0500Heart rate78 /min Katherine Keith MD Work Phone: [facility]02-21-2024 11:31-0233GpR7% (BldA) [Mass fraction]96 %Katherine Keith MD Work Phone: [facility]02-21-2024 11:31-0500Systolic blood mannytje638 mm[Hg]Katherine Keith MD Work Phone: [facility]08-23-2023 10:15-0400Blood Pressure LocationKathy Lue [facility]08-23-2023 10:15-0400Diastolic blood qkezorul03 mm[Hg]Shae Lue [facility]08-23-2023 10:15-0400Heart rate73 /minKathy Lue [facility]08-23-2023 10:15-0400Systolic blood xvhkivqm565 mm[Hg]Shae Lue [facility]08-21-2023 06:50-0400Body xiknfr205.88 cmMD Ester Hoy Work Phone: [facility]08-21-2023 06:50-0400 Body bibees11.91 kgMD Ester Hoy Work Phone: [facility]06-28-2023 07:45-0400 Blood Pressure LocationKathy Lue [facility]06-28-2023 07:45-0400Diastolic blood ytubobxl25 mm[Hg]Shae Lue [facility]06-28-2023 07:45-0400Heart rate51 /minKathy Lue [facility]06-28-2023 07:45-0400Respiratory rate16 /minKathy Lue [facility]06-28-2023 07:45-0400Systolic blood jujcvuqq462 mm[Hg]Shae Lue [facility]01-25-2023 15:00-0500Blood Pressure LocationMichael NILL [facility] Ksqdvscw61-45-5465 15:00-0500Diastolic blood juqooppe07 mm[Hg]Camryn NILL General Surgery Wptmkeaa73-67-8307 15:00-0500Heart rate 80 /minMichael NILL [facility] Ogltlqec76-16-3639 15:00-0500 Respiratory rate16 /minMichael NILL [facility] Lmspknni63-96-1007 15:00-0500Systolic blood rigfvjeb889 mm[Hg]Camryn NILL [facility] [place] Encounters Encounter DateEncounter TypeCare ProviderFacilityStart: 01-14-2025 End: 61-38-7715Sancgw flowsheetEugene R Kubitz DPM Work Phone: [facility]Start: 01-14-2025 End: 27-71-8490Tivjer flowsheetEugene R Kubitz DPM Work Phone: NONX [facility]iatryStart: 01-14-2025 End: 95-23-4401mihfqtxkszCRCPSK R KUBITZNot AvailableStart: 01-05-2025 End: 60-09-4814rvrdgugmzgYxowlho R NILLFacility:CD:[id number]: 12-24-2024 End: 50-23-8178hvmsgyfcqtHBDUTM [facility] Start: 11-23-2024 End: 17-31-4606vsdytqujfmOmqiwew R NILLFacility: [facility]vueStart: 11-23-2024 End: 23-19-3734Yzchukl encounter procedureMichael R NILL [phone]-IgkvoMer[facility] Health [facility] Javed Start: 10-06-2024 End: 71-43-9410Jeoeer outpatient visit 15 minutesEugene R Kubitz DPM Work Phone: [facility] PodiatryComment on above:Foot drop, bilateral (Primary Dx); Neurogenic ulcer, 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); PAD (peripheral artery disease); Absent pulse; Idiopathic peripheral neuropathyStart: 10-06-2024 End: 41-58-7055sibozhzsafPTUMTB R NAVINBITZNot AvailableStart: 10-06-2024 End: 99-49-5327Rcamnr flowsheetEugene R Kubitz DPM Work Phone: [facility]ryStart: 10-06-2024 End: 57-72-0052Qrvtup flowsheetEugene R Kubitz DPM Work Phone: [facility]iatryStart: 10-06-2024 End: 24-46-1989jyiloezauvNvwktnb M Hoy MD Work Phone: [facility] Work Phone: Start: 10-06-2024 End: 12-60-2916Byyzlhr encounter procedureCitlali Black [facility] Work Phone: Start: 09-27-2024 End: 03-10-8145Jyzmlty encounter procedureCWS Mahamed Gray DPM [facility] [place] Work Phone: Start: 09-27-2024 End: 41-65-5473tsfjoyixhkNfllqvl M Hoy MD Work Phone: [facility] Work Phone: Start: 09-17-2024 End: 78-00-2555Sypztu flowsheetEugene R Kubitz DPM Work Phone: [facility] PODIATRYStart: 09-17-2024 End: 59-79-3916Cpvzcm flowsheetEugene R Kubitz DPM Work Phone: n[facility] PODIATRYStart: 09-17-2024 End: 72-60-5837Iqnptz outpatient new 30 minutesEugene R Kubitz DPM Work Phone: [facility] PodiatryComment on above:Idiopathic peripheral neuropathy (Primary Dx); Neurogenic ulcer, 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); PAD (peripheral artery disease); Absent pulse; Foot drop, bilateralStart: 09-17-2024 End: 23-18-5317okzvmcfblrNURFBS R Anuradha AvailableStart: 07-19-2024 End: 21-42-3944Ezdldbixq to same day surgery centerCarlos Eduardovitaliy Karina KHALIL-C Work Phone: spine SurgeryComment on above:TherapyStart: 07-19-2024 End: 05-17-0817hzcbgcjisoUaplctk Severinous PA-C Work Phone: spine SurgeryStart: 07-15-2024 End: 06-00-5336Wifdvjvwx to same day surgery centerCarvitaliy Karina PA-C Work Phone: spine SurgeryComment on above:S/P cervical spinal fusion (Primary Dx)Start: 07-15-2024 End: 44-97-9951Rrjhxrrscxzj consultation with patientAlfonso KHALIL-Vikas Work Phone: spine SurgeryStart: 07-15-2024 End: 02-00-0391hdqjwcyvawXBYTRKE PELLEFacility:[facility] HospitalStart: 06-29-2024 End: 96-47-1676Agldeijubbig consultation with patientCarlos Eduardovitaliy Karina KHALIL-Vikas Work Phone: spine InstituteStart: 06-29-2024 End: 77-39-8545epgzfowwzlZjsmkwu Karina PA-C Work Phone: spine InstituteComment on above:Spondylolysis, lumbar region (Primary Dx); S/P cervical spinal fusionX-ray schedulingStart: 06-28-2024 End: 53-13-8612BogafiXcyevrm Bonus PA-C Work Phone: spine InstituteComment on above:Refill RequestStart: 06-22-2024 End: 43-35-7362rcsihgcafhThxtmxq Karina PA-C Work Phone: spine InstituteComment on above:Add Prednisone?Start: 06-21-2024 End: 47-40-6712Vusmtysyi to same day surgery Quan Keith MD Work Phone: spine InstituteComment on above:Post surgery symptoms Refill RequestStart: 06-21-2024 End: 61-64-0706nkpjumezapBuuiana Pelle MD Work Phone: spine InstituteStart: 06-16-2024 End: 63-42-3093gendoeafkyOENGDDF M HOYFacility:[facility] Northtart: 06-16-2024 End: 75-37-3522Wqhtwmz encounter procedureNurse Spine Surg Main U96Ustik InstituteComment on above:Encounter for removal of sara (Primary Dx)Start: 06-14-2024 End: 51-70-4310DT Get Medical AdviceAlfonso KHALIL-C Work Phone: spine InstituteComment on above:Med RefillStart: 06-11-2024 End: 04-99-5825Rtdqaaywk encounterKatherine Keith MD Work Phone: Sphjx InstituteComment on above:Transition Of Care Start: 06-10-2024 End: 96-86-1181ylpjwclqvoSfwaqbz Bonus PA-C Work Phone: spine InstituteComment on above:[place] removalStart: 06-09-2024 End: 27-05-6872tskhvyzzmaErggowo Bonus PA-C Work Phone: Spyut InstituteComment on above:Bathing instructions Start: 06-08-2024 End: 39-86-9104YnoutwNishant Tse MD Work Phone: cardiologyComment on above:SVT (supraventricular tachycardia) (HCC) (Primary Dx); Elevated troponinDischargeStart: 06-04-2024 End: 33-77-9439azzclbxwhrQmghmiy Bonus PA-C Work Phone: Spbwz InstituteComment on above:Neck braceStart: 06-02-2024 End: 93-50-7038Lrlpfkbpwk and management of inpatientKATHERINE KEITH Facility:[facility]htart: 06-01-2024 End: 37-69-5746Yhixsrckr to same day surgery [place]Carlos Eduardovitaliy Karina SCHWARTZ Work Phone: spine InstituteComment on above:Phone number for surgery timeStart: 06-01-2024 End: 14-93-3363oubaiipfarDntchav Bonus EFREN Work Phone: spine InstituteStart: 05-17-2024 End: 58-94-5866femurjqyekRscgk Mc Coy RNInternal Medicine The [facility]vue HospitalYbslyi1Osanq: 21-56-1812jlfdzcmolmWHDFCQM PELLEFacility:[facility] Hospitaltart: 05-14-2024 End: 61-79-9093Esfvncnhyu hospital visit by physicianCt [facility] Work Phone: [facility] DRIFTING HOSPComment on above:Spinal stenosis of cervical region [M48.02]Start: 05-12-2024 End: 99-31-1096bexemqsaveSAUXBSJ PELLEFacility:[facility] Northtart: 05-12-2024 End: 02-43-9728Mekvewe encounter Anup Keith MD Work Phone: spine InstituteComment on above:Cervical spondylosis with myelopathy (Primary Dx); Spinal stenosis of cervical regionStart: 05-12-2024 End: 08-87-6972Pmdkvkgzm to establishmentRhona Boss MD Work Phone: intm MAIN IMPACTStart: 05-12-2024 End: 32-61-7767Swkwfoywpnbmg examination Brooklynn Boss MD Work Phone: [facility] Work Phone: Start: 05-12-2024 End: 28-50-8880qadturergtGgssuJaved Boss MD Work Phone: intm MAIN IMPACTComment on above:Pre-op evaluation (Primary Dx); Spinal stenosis of lumbar region, unspecified whether neurogenic claudication present; Primary hypertensionStart: 71-66-7919Bfewihwef for other preprocedural examinationRHONA CORTEZSelect Medical TriHealth Rehabilitation HospitalStart: 05-10-2024 End: 16-59-2666rqmcixunmwGAMGUNY M HOYFacility:[facility]art: 05-06-2024 End: 58-89-5833mcxdflbotvLgottql Pelle MD Work Phone: Spjwm InstituteStart: 05-06-2024 End: 69-28-9039Zpxjqhn encounter statusKatherine Keith MD Work Phone: [facility]: 05-05-2024 End: 96-66-1226Eyvvzvemflyu consultation with patientKatherine Keith MD Work Phone: Spnca InstituteStart: 05-05-2024 End: 99-06-8410Kbuoylmjt to same day surgery centerKatherine Keith MD Work Phone: Spgts InstituteComment on above:Neck surgeryStart: 05-05-2024 End: 81-88-1120wfcnxuednaNhzgunq Pelle MD Work Phone: Spvag InstituteComment on above:Cervical spondylosis with myelopathy (Primary Dx)Start: 04-06-2024 End: 81-94-0779jmykugvqusAjdjuul Bonus PA-C Work Phone: Spcuy InstituteComment on above:Request for Medical recordsStart: 02-21-2024 End: 13-31-9874xkhijrcqqsQRQDMBS M HOYFacility:[facility]art: 02-21-2024 End: 73-30-5633Kwherdabbt hospital visit by physiciani 7 Radio Main Q (I-Stat/1.5t/3t) Work Phone: MRI QComment on above:Spinal stenosis of cervical region [M48.02]Start: 02-03-2024 End: 36-05-0858VshcwaNishant Loyd PA-C Work Phone: Spdzs InstituteComment on above:Spinal stenosis of cervical region (Primary Dx)Start: 01-13-2024 End: 24-71-5163Piuiwwy encounter procedureKatherine Keith MD Work Phone: Spine InstituteComment on above:S/P lumbar fusion (Primary Dx); Right leg weaknessStart: 01-13-2024 End: 94-40-8237mxbcxouypsRCKKMJR M HOYFacility:[facility]htart: 01-13-2024 End: 38-40-5879Yzbrtji encounter procedureEmg 1 Neur Main (Max Weight: 1000) Work Phone: NeurologyStart: 01-13-2024 End: 85-46-1158kaycykomxoUBVTBFH M HOYNeurologyComment on above:EMGStart: 01-13-2024 End: 57-87-6294exoipmrjmvLXHPLVM PELLEFacility:[facility]htart: 01-13-2024 End: 47-98-6578Gktzhshalt hospital visit by physicianMri 4 Radio Main Q (I-Stat/1.5t/3t) Work Phone: MRI QComment on above:Adverse effect of treatment, sequela [T88.9XXS]Acute low back pain, unspecified back pain laterality, unspecified whether sciatica present [M54.50]Start: 12-16-2023 End: 75-05-9698Spnptjk encounter procedureMichael R NILL [phone]-Dbvwt General Surgery [place] Start: 12-05-2023 End: 36-87-2968Qxyzhfxls encounterKatherine Keith MD Work Phone: Spmpp InstituteComment on above:Shirt Folder - OtherStart: 11-26-2023 End: 46-98-8461zrzfzxyubdCJ Ester Cain Work Phone: [facility] Work Phone: Start: 11-26-2023 End: 29-25-9744Qrdapnly ReferredMD Ester Cain Work Phone: [facility]-LAB Path Spec [place] HospStart: 11-21-2023 End: 38-80-6071uaptckyxbpWdxbmwk Bonus PA-C Work Phone: spine InstituteComment on above:TestsStart: 11-12-2023 End: 03-88-9519Jvnrlpi encounter procedureKatherine Keith MD Work Phone: spine InstituteComment on above:Adverse effect of treatment, sequela (Primary Dx); Acute low back pain, unspecified back pain laterality, unspecified whether sciatica presentStart: 11-12-2023 End: 96-11-5947Fewmjr-up encounterKatherine Keith MD Work Phone: spine InstituteComment on above:Follow up med request Start: 11-12-2023 End: 28-03-3824vzivdevpwiRlmlfky Pelle MD Work Phone: spine InstituteStart: 11-12-2023 End: 93-92-3016Vfzitehudr hospital visit by physicianVaishnavi Ochoa J1-4 Work Phone: RadiologyComment on above:History of laminectomy [Z98.890]Start: 11-11-2023 End: 08-31-7828jyrmelcmpwFmzwteh Pelle MD Work Phone: spine InstituteStart: 11-11-2023 End: 63-57-7703Jxumcv-up encounterKatherine Keith MD Work Phone: spine InstituteComment on above:Surgery followupStart: 11-11-2023 End: 56-05-6404Vaxasdj encounter procedureMichael R NILL [phone]-Mtdzk General Surgery [place] Start: 11-05-2023 End: 91-55-0116Tnczexbxw encounterAlfonso Loyd PA-C Work Phone: spine InstituteComment on above:Refill Request Insurance AuthorizationStart: 10-29-2023 End: 50-78-1771JkraikSfinjra Bonus PA-C Work Phone: Shawnine InstituteComment on above:Refill RequestStart: 97-49-2620pnztcutkoaXlvkrnb Karina SCHWARTZ Work Phone: Spine InstituteComment on above:Office numberStart: 57-02-4260dfzlslkvjlTbsggcb Bonus PA-C Work Phone: Spine InstituteComment on above:MedicationStart: 10-21-2023 End: 32-19-8892tnsvfviyujNgucxdn Karina SCHWARTZ Work Phone: Spine InstituteComment on above:Right leg weakness (Primary Dx); S/P lumbar fusionFax numbersStart: 10-21-2023 End: 82-07-1955Rfwqxjflsvon consultation with patientAlfonso Karina SCHWARTZ Work Phone: spine InstituteStart: 65-79-6300Zivfmtafe encounter Katherine Keith MD Work Phone: NeurologyComment on above:medicationStart: 10-15-2023 RefillAlfonso Loyd PA-C Work Phone: [facility] InstituteComment on above:Refill RequestStart: 95-02-5757HH Get Medical AdviceKatherine Keith MD Work Phone: [facility] InstituteComment on above:Script refillsStart: 10-02-2023 End: 61-96-1986Lvgnqatfgm and management of inpatientKATHERINE KEITH Facility:[facility]: 35-90-7114Gtlfiimsy encounterDavid ([facility]) MarthanickResearchComment on above:ResearchStart: 09-30-2023 End: 94-19-6639Otkgxel evaluation of patient and reportisa Tonya Orozco InstituteComment on above:S/P lumbar spinal fusion (Primary Dx)Start: 09-30-2023 End: 98-86-6371icsxmqsnmmOLCQIOT M HOYFacility:[facility]htart: 50-89-3183Phagzorfh encounterAshanti Vinay Zhou InstituteComment on above: CARE CONTINUUM ADVISOR ASSESSMENTStart: 06-41-2524TnujddJxtdpwo Bonus PA-C Work Phone: Spine InstituteComment on above:Refill RequestStart: 09-18-2023 End: 93-22-9192UdnairStnodk Dimple Fair PA-C Work Phone: Spudc InstituteComment on above:Refill RequestStart: 96-24-0839ysqdxrxpfdDbkkwda Pelle MD Work Phone: Spzpq InstituteStart: 68-02-3447Biymzgy encounter statusKatherine Keith MD Work Phone: [facility]: 08-57-0580vtfrxvaneaOdfbatq Pelle MD Work Phone: Spine InstituteComment on above:Legs swellingStart: 73-32-0685Zsevytshf encounterKatherine Keith MD Work Phone: NeurologyComment on above:Patient UpdateStart: 82-06-8696YJ Get Medical AdviceKatherine Keith MD Work Phone: Spine InstituteComment on above:Med refillStart: 27-73-3770kicovzhfkiDwicldo Pelle MD Work Phone: Spxce InstituteComment on above:Meds at home discussionStart: 33-89-7694htmetqecgtAegfwyw Bonus PA-C Work Phone: Sparu InstituteComment on above:Trevor Mauro OliverStart: 23-98-1816Sttgbj-up encounterKatherine Keith MD Work Phone: Spine InstituteComment on above:Surgery followupStart: 09-07-2023 End: 24-81-2479Wksgsfcnkf and management of inpatientKEVIN ZIEGLER Facility:[facility]art: 12-37-9104YvnwvxObtpqjl Bonus PA-C Work Phone: Medical RecordsComment on above:Refill RequestStart: 81-78-1305Ttsvagfnd encounterKatherine Keith MD Work Phone: NeurologyComment on above:Patient UpdateStart: 82-19-5708CexvycRvqitos Bonus PA-C Work Phone: spine InstituteComment on above:Refill RequestMed refillStart: 39-90-5066Yhgcwqpjp to same day surgery centerKatherine Keith MD Work Phone: spine InstituteComment on above:08/19/23 surgeryStart: 35-23-6839cqcnehcutpFqxvsxh Pelle MD Work Phone: Spraz InstituteStart: 89-56-5371Fipgibeil encounter Katherine Keith MD Work Phone: NeurologyComment on above:Medication ProblemStart: 08-29-2023 End: 39-05-4034ebywakezkqRaqpxdn Bonus PA-C Work Phone: spine InstituteComment on above:Acute post-operative painStart: 08-29-2023 End: 16-28-8717Dubremdrbgkj consultation with Renee Loyd PA-C Work Phone: spine InstituteStart: 40-56-5541TS Get Medical Advice Katherine Keith MD Work Phone: Splog InstituteComment on above:Oxicodone medication refillStart: 08-22-2023 End: 61-57-8694Rpcwjbcudx and management of inpatientESTER CAIN Facility:[facility] HospitalStart: 08-19-2023 End: 68-82-9332Rdokwpolim and management of inpatientKATHERINE KEITH Facility:[facility] HospitalStart: 08-12-2023 End: 42-70-9673uevzsvdpnwQGFSASD PELLEFacility:[facility] HospitalStart: 20-07-5364Mcxnmleya encounterJudi SIMMONSCommunity Health Systems InstituteComment on above: Follow UpStart: 94-03-7296uqnqwbmtabVcnia Mc Coy RNInternal Medicine The Bellevue HospitalLyzvjh1Lluhrsn on above:Blood ManagementStart: 08-06-2023 End: 87-89-8478vbpwurqivkWSXEHHT M BONUSFacility:[facility] HospitalStart: 08-06-2023 Encounter for other preprocedural examinationGENERAL LEONARD WOOD ARMY COMMUNITY HOSPITALJON Kahn HospitalStart: 08-06-2023 End: 12-95-2476Ipahbxpds to establishmentSt. [facility] [address] Other Phone: Pre AnesthesiaStart: 08-06-2023 End: 25-82-1649Ijxitbl encounter procedureSt. Anthony Hospital [address] Other Phone: Pre AnesthesiaComment on above:Pre-op exam (Primary Dx); Primary hypertension; SVT (supraventricular tachycardia) (HCC); History of penicillin allergyStart: 08-06-2023 End: 44-84-4070Voynylvzrgyte examination doneSt. Anthony Hospital [address] Other Phone: [facility] Work Phone: Start: 08-06-2023 End: 31-36-7584jjcjeibsgfYBKGKTI PELLEFacility:[facility] Centertart: 08-06-2023 Encounter for other preprocedural examinationDOMJON VARGASKarina HospitalStart: 81-20-7319Ikunkjlng to same day surgery Quan Keith MD Work Phone: spine InstituteComment on above:Sooner Surgery Date Start: 63-02-2129ixfpantoadLvcviqt Pelle MD Work Phone: Splqa InstituteStart: 19-65-5319Fszggpumi encounter Katherine Keith MD Work Phone: spine InstituteComment on above:Patient UpdateStart: 07-30-2023 End: 10-73-3319iagzmdgbyyFPQZCYJ M HOYFacility:[facility] HospitalStart: 85-99-1188Frbazmwmp encounterKatherine Keith MD Work Phone: spine InstituteComment on above:FormsStart: 07-11-2023 ambulatoryKatherine Keith MD Work Phone: spine InstituteStart: 42-67-3590Vkpkycb encounter statusKatherine Keith MD Work Phone: [facility]art: 54-55-1251Pkrafrhjr to same day surgery Quan Keith MD Work Phone: spine InstituteComment on above:Surgery dateStart: 44-19-5882nfhxdwhkbiFbseubo Pelle MD Work Phone: [facility] MAINStart: 90-22-6985mcyyjauyzdbren Keith MD Work Phone: [facility] MAINStart: 06-11-2023 Documentation procedureKatherine Keith MD Work Phone: spine InstituteComment on above:LTD DocumentsStart: 18-42-5860Fsdlddsqn encounterKatherine Keith MD Work Phone: spine InstituteComment on above:FormsStart: 05-29-2023 Telephone encounterKatherine Keith MD Work Phone: spine InstituteComment on above:Schedule SurgeryStart: 71-09-1974Rborvzfry to same day surgery Quan Keith MD Work Phone: spine InstituteComment on above:Surgery dateStart: 51-92-8552unctvshckxGmyqjrq Pelle MD Work Phone: c[facility] MAINStart: 29-05-9723Xwucqpmqx to same day surgery Quan Keith MD Work Phone: spine InstituteComment on above:Surgery dateStart: 15-83-1031busepfvawqPmqoaws Pelle MD Work Phone: ccf [facility] MAINStart: 57-52-0308Hfienzcpe to same day surgery Quan Keith MD Work Phone: spine InstituteComment on above:Surgery scheduleStart: 03-08-0136izynybtwaeUlbngyz Pelle MD Work Phone: ccf [facility] MAINStart: 69-73-0394pzknlhtcuk DOMINIC PELLEFacility:[facility] HospitalStart: 05-04-2023 End: 92-09-1265Kkfjzuroiy hospital visit by physicianCt [facility] (I-Stat) Work Phone: [facility] Radiology CT ScanComment on above: Chronic low back pain, unspecified back pain laterality, unspecified whether sciatica present [M54.50, G89.29]Start: 04-30-2023 End: 78-89-5257Hntndaclcl hospital visit by physicianXr Main F67YegbrhssrTzkgixg on above:History of lumbar laminectomy for spinal cord decompression [Z98.890] Start: 04-30-2023 End: 92-44-5414Pcjiqjs encounter procedureKatherine Keith MD Work Phone: Spine InstituteComment on above:History of lumbar laminectomy for spinal cord decompression (Primary Dx); Degenerative scoliosis in adult patient; Chronic low back pain, unspecified back pain laterality, unspecified whether sciatica presentStart: 04-30-2023 End: 41-85-1522Jsmnucfytl hospital visit by physicianXr Main J1-4 Work Phone: RadiologyComment on above:Spinal stenosis, lumbar region with neurogenic claudication [M48.062]Start: 24-00-2914Ukrzh abstracting Katherine Keith MD Work Phone: NeurologyStart: 12-05-2022 End: 93-26-2748Qbfyrbw encounter procedureShae Guillory [facility] Start: 10-30-2022 End: 77-60-8450Ckfjvxj encounter procedureShae Guillory [facility] [place] start: 10-28-2022 End: 06-42-2883fhtxzdmmrxUP Ester Cain Work Phone: [facility] Work Phone: Start: 10-28-2022 End: 77-60-9066Gqhfwcv encounter procedureMD Ester Cain Work Phone: [phone] Main [place] Work Phone: Start: 09-04-2022 End: 90-61-1217Rpurmmo encounter procedureKelseyjon Guillory [facility] start: 05-21-2022 End: 92-76-3846Cvmxgrf encounter procedureMichael R NILL General Surgery Nill/Said [place] Start: 05-07-2022 End: 41-18-2046Qyphsqo encounter procedureMichael R NILL General Surgery N[place]/Said [place] Start: 27-54-8675wgowvtwhjoOkMauri Cain Facility:[address]Aqvbi: 14-14-3994Bqglxtlaa for preprocedural laboratory examinationDR CAMRYN AGUSTIN .[facility]tart: 04-11-2022 End: 89-28-1532Llyvybesg for preprocedural laboratory examinationDR WILTON NICHOLEFacility:P5Teolg: 04-11-2022 End: 35-50-2206yrpgqfapjcFA WILTON SLOANERFacility:Z8Katol: 04-03-2022 End: 37-41-2066Gyhceus encounter procedureMichael R NILL General Surgery Nill/Said [place] Start: 03-16-2022 End: 64-98-3410dnttokebxtOavhyk PolicaroFacility:O4Ztcdc: 03-06-2022 End: 38-40-7271cqjbstwitaXT ESTER CAIN .Facility:O1Cirvq: 01-18-2022 End: 24-45-2199pujqpatkayGX ESTER CAIN .Facility:N1Ohekh: 39-97-7049Smwbxjdtc for general adult medical examination without abnormal findingsDR ESTER CAIN . [facility]: 01-01-2022 End: 93-57-4741nnmwscrjcgSN ESTER CAIN .Facility:V5Oftel: 12-28-2021 End: 22-52-6293gifoubqzndJE ESTER CAIN .Facility:M3Xrorw: 12-28-2021 End: 70-71-7533Soxeffsss for general adult medical examination without abnormal findingsDR ESTER CAIN .Facility:J5Ctxue: 07-31-2020 End: 74-82-3611izbgryasmqCCNFESE HOYFacility:[facility] Procedures DateProcedureProcedure DetailPerforming ClinicianStart: 50-35-0736Vovmp volume recorder pneumoplethysmographyEster Cain MD Work Phone: Start: 36-29-8868Y-reactive proteinEugene R Kubitz DPM Work Phone: start: 21-30-6422Utttlfll blood count with white cell differential, automatedEugene R Kubitz DPM Work Phone: start: 59-36-0688Mczvwfxcogknu metabolic panelEugene R Kubitz DPM Work Phone: start: 03-70-1679Cfxacspi screenDOMCKINLEY URBINAYComment on above:Order Comment: Specimen Type: BLOOD SPECIMENOrdering Facility: [facility] Address:[address] [place], [place] [address]Performed By: #### [id number] ####CC [facility] BLOOD BANKCLIA [id number] [place] [address] [place] AMERICAStart: 20-25-8541Mmb spinal canal cervical w/o contrast matrlCarissa Karina SCHWARTZ Work Phone: Start: 58-82-2796Fiqvf conduction studies 5-6 studies Meenakshi Morin MD Work Phone: Start: 89-70-7892Jk lumbar spine w/o contrast material Meenakshi Morin MD Work Phone: Start: 36-14-6813Jky spinal canal lumbar w/o contrast materialMeenakshi Morin MD Work Phone: Start: 46-21-6469CigjaiswvhyJsktmg Kubitz DPM Work Phone: start: 67-83-1944EepuuyaqlgaEdgqery NILL Start: 41-12-3120Zeptg spine lumbosacral 2/3 views Alfonso CANELAC Work Phone: Start: 06-30-4828Avliveft screenDOUGLAS HOYComment on above:Order Comment: Specimen Type: BLOOD SPECIMENOrdering Facility: [facility] Address:[address] [place], [place] [address]Performed By: #### TSCR ####CC MAIN BLOOD BANKCLIA [id number] [facility] [id number] AMERICAStart: 46-57-5996Naohpvflwha spinal fusionMichael NILL Start: 45-55-8765Inm facetectomy&foramtomy 1 sgm ea crv thrc/lmbrMichael NILL Start: 02-62-7181Ikztqgpo screenDOMINIC PELLEComment on above:Order Comment: Specimen Type: BLOOD SPECIMEN Ordering Facility: [facility] Address: [address] [place], [place] [address]Performed By: #### TSCR30 #### [facility] BLOOD BANK CLIA [id number] [address] [place] [address] [facility] AMERICAStart: 01-45-4908Yri routine ecg w/least 12 lds i&r onlyRachel Mercedes SCHWARTZ Work Phone: Start: 02-81-2801Xv lumbar spine w/o contrast material Katherine Keith MD Work Phone: Start: 08-67-0103Qgsjo entir thrc lmbr crv sac spi w/skull 2/3 vwKatherine Keith MD Work Phone: Start: 53-18-8280Ncyoe spine lumbosacral minimum 4 viewsCarissa Karina SCHWARTZ Work Phone: Start: 80-58-0349Bmcdydkrkgmpp needle biopsy of prostateKathy Lue Start: 38-48-1854BI prostate wo/w conMD Ester Cain Work Phone: Start: 42-10-9841Xsmpnkzjtxci repair of obstructed hernia of anterior abdominal wallMichael NILL Start: 69-90-3780TFA screeningFre.j. noble hospitalo PolicaroComment on above:Performed By: #### PSASC, VITAD #### [facility] [address] [place] [address] Dr. Max PeckStart: 89-78-4744XmkkuflotqdGuictnj NILL Start: 37-33-8595Awss structure, excluding neck (body structure)Camryn NILL Start: 68-41-8087Zkta structure, excluding neck (body structure)Camryn NILL Start: 33-30-4367QvrbehqdlcmlujoXmoywyp NILL Cervical laminectomyMichael NILL Excision of lesion of skinMichael NILL Comment on above:[facility] left neck Extraction of cataractMichael NILL History of cholecystectomyS/P cholecystectomyEster Cain MD Work Phone: History of excision of lamina of lumbar vertebra for decompression of spinal cordHistory of lumbar laminectomy for spinal cord decompressionXr G46Olyfacn of excision of lamina of lumbar vertebra for decompression of spinal cordHistory of lumbar laminectomy for spinal cord decompressionKatherine Keith MD Work Phone: LaminectomyMichael NILL Comment on above:x 3-- 2018, 2013, 2000Lumbar spinal fusionMichael NILL Revision of fusion of lumbar spineMichael NILL Plan of Treatment DateCare ActivityDetailAuthorStart: 82-88-1878Awlsmnive for malignant neoplasm of colonNODC HealthcareStart: 04-03-7465Wiwamexz ScreeningDiabetes Screening [facility]art: 41-73-4260Qugksjzz ScreeningDiabetes ScreeningRegency Hospital Toledotart: 55-71-2529Fxtqwqlj ScreeningDiabetes [facility]eningMet[facility] Start: 97-48-7585Jhedmrna specific antigen measurementProstate Cancer Screening DiscussionRegency Hospital Toledotart: 57-30-5462Zqfxuasg ScreeningDiabetes Screening [facility]otart: 41-05-0623Hpralbpj ScreeningDiabetes ScreeningRegency Hospital Toledotart: 67-20-1123Irwyztvj ScreeningDiabetes ScreeningMet[facility] Start: 62-41-9098Ouoqdbmw ScreeningDiabetes ScreeningRegency Hospital Toledotart: 12-69-9038Yeixgmse ScreeningDiabetes ScreeningRegency Hospital Toledotart: 01-14-2025 End: 78-88-5705Qxnwilw encounter pomuacdgr30/07/2025 11:15 AM EST Office Visit [facility] [address] [place] [address] Mahamed Gray DPM [address] [place] [address] ArrivedNO [place] PodiatryComment on above:ArrivedStart: 05-12-3168ZPVHU-19 Vaccine ( season)COVID-19 Vaccine ( season)[facility] HealthcareStart: 00-63-6401Kmbeczuom vaccinationRegency Hospital Toledotart: 10-06-2024 End: 61-41-0431Sewhlyo encounter qxqsdtybk43/30/2025 4:15 PM EDT Office Visit [facility] [address] [place] [address] Mahamed Gray DPM [address] [place] [address] ArrivedNO [place] PodiatryComment on above:ArrivedStart: 87-82-2963Oayjl volume recorder pneumoplethysmography [facility]tart: 09-17-2024 End: 67-49-6633MY.doppler Extremity arteries - bilateral for physiologic artery study at rest and with exerciseVASC US PVR WITH MARCIAL Imaging High Priority Neurogenic ulcer, 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) PAD(peripheral artery disease) Absent pulse Expected: 09/17/2024 (Approximate), Expires: 09/17/2025 [facility] Work Phone: comment on above:Expected: 09/17/2024 (Approximate), Expires: 09/17/2025Start: 09-17-2024 End: 35-07-6154Pyhldts encounter bstusfhgc88/11/2025 10:30 AM EDT Office Visit [facility] [address] [place] [address] Mahamed Gray DPM [address] [place] [address] ArrivedRAMON MILLER PODIATRYComment on above:ArrivedStart: 07-15-2024 End: 23-88-2387Raqpmytsy to same day surgery rntjqp5507/15/2024 9:00 AM EDT [facility] [address] [place], [place] [id number] Alfonso Loyd PA-C [address] [place] [address] POST-OP 6-8WKSSpine SurgeryComment on above:POST-OP 6-8WKSStart: 07-09-2024 End: 73-76-5791Ckqhgir encounter procedureRadiologyComment on above:POST-OP Elevated troponin after spine surgeryStart: 06-29-2024 End: 12-77-5782autyvympkv72/22/2025 9:30 AM EDT [facility] Spine [address] [address] Alfonso Loyd PA-C [address] [place] [address] POST-2WKS Spine InstituteComment on above:POST-2WKSStart: 06-16-2024 End: 12-15-1869Eabrwaz encounter ghvtbybwt07/09/2025 10:00 AM EDT Office Visit [facility] [place] [address] [place] [address] Staple RemovalSpine InstituteComment on above:Staple RemovalStart: 06-16-2024 End: 54-00-1006hyhtdhyret47/09/2025 9:00 AM EDT [facility] [address] [address] Alfonso Loyd PA-C [address] [place] [address] POST-2WKS Spine InstituteComment on above:POST-2WKSStart: 06-02-2024 End: 69-91-7589Osudjejqg to same day surgery centerSpine InstituteComment on above:Schedule surgeryCERVICAL LAMINOPLASTY WITH DECOMPRESSION 2 OR MORE SEGMENTSStart: 06-02-2024 End: 88-26-0236Vtypejtpb to same day surgery ldudmi1706/02/2024 8:30 AM EDT - 06/02/2024 11:27 AM EDT Surgery Admitting [address] [place] [address] Katherine Keith MD [address] [place] [address] CERVICAL LAMINOPLASTY WITH DECOMPRESSION 2 OR MORE SEGMENTS AdmittingComment on above:CERVICAL LAMINOPLASTY WITH DECOMPRESSION 2 OR MORE SEGMENTSStart: 06-02-2024 End: 59-62-9460Jexlf cervical w/dcmprn spi cord 2/> vert seg [facility] Start: 06-02-2024 End: 33-51-6210Cetdshijse cervical dcmprn cord 2/> seg rcnstj [facility] Start: 42-76-0247Zgzvsjyuwf hospital visit by physicianAdmittingComment on above:Spinal stenosis of cervical region [M48.02]Start: 05-12-2024 End: 89-52-6610ZOKQJKMNGELVSY AUREUS & MRSA SCREEN, PCR, NASALSTAPHYLOCOCCUS AUREUS & MRSA SCREEN, PCR, NASAL Lab Routine Pre-op testing Expected: 05/12/2024 (Approximate), Expires: 06/02/2024leveland ClinicComment on above:Expected: 05/12/2024 (Approximate), Expires: 06/02/2024Start: 05-12-2024 End: 49-11-8479Yehoexd encounter snushohuy14/05/2025 11:30 AM EST Office Visit [facility] [place] [address] [place] [address] Katherine Keith MD [address] [place] [id number] PRE-OP CLEARANCESpine InstituteComment on above:PRE-OP CLEARANCEStart: 05-12-2024 End: 46-68-2970Lyjgvyw encounter procedureAdmittingComment on above:PRE-OP CLEARANCEStart: 05-12-2024 End: 78-74-4339Dgpkuvqefj ibgtjjkheemt27/05/2025 9:20 AM EST PAT Pre Anesthesia [address] [place] [id number] 9, [address] [place] [address] PRE-OP CLEARANCEPre AnesthesiaComment on above:PRE-OP CLEARANCEStart: 05-10-2024 End: 60-48-3715Kexsfkj encounter ubjirzvpn36/03/2025 10:00 AM EST Office Visit Financial Clearance Phone Screening [place] [address] REGISTRATIONFinancial Clearance Phone ScreeningComment on above:REGISTRATIONStart: 05-06-2024 End: 50-01-4101WWV W Auto Differential panel - BloodCOMPLETE BLOOD COUNT AND DIFFERENTIAL Lab Routine Iron deficiency anemia, unspecified iron deficiency anemia type Expected: 05/06/2024 (Approximate), Expires: 06/02/2024[facility] ClinicComment on above:Expected: 05/06/2024 (Approximate), Expires: 06/02/2024 Start: 05-06-2024 End: 24-79-2481Dlsrwsgx [Mass/volume] in Serum or PlasmaFERRITIN Lab Routine Iron deficiency anemia, unspecified iron deficiency anemia type Expected: 05/06 (Approximate), Expires: 06/02/2024[facility] ClinicComment on above: Expected: 05/06/2024 (Approximate), Expires: 06/02/2024Start: 05-06-2024 End: 78-86-0064Vcgo and Iron binding capacity panel - Serum or PlasmaIRON AND TIBC Lab Routine Iron deficiency anemia, unspecified iron deficiency anemia type Expected:05/06/2024 (Approximate), Expires: 06/02/2024[facility] Work Phone: Comment on above:Expected: 05/06/2024 (Approximate), Expires: 06/02/2024Start: 59-06-9318Vtegkao Directive DiscussionAdvance Directive DiscussionRegency Hospital Toledotart: 01-13-2024 End: 46-04-5240Qekjciv encounter vagrforer64/05/2024 1:40 PM EST Office Visit [facility] [address] [place], [place] [phone] Katherine Keith MD [address] [place], [place] [phone] f/u with providerSpine InstituteComment on above:f/u with providerStart: 01-13-2024 End: 26-26-3605ncnffuwsvv63/05/2024 9:30 AM EST Procedure Neurology [address] [place] [address] Adverse effect of treatment, sequela [T88.9XXS]NeurologyComment on above:Adverse effect of treatment, sequela [T88.9XXS]Start: 01-13-2024 End: 61-83-8077Nrmhshn encounter hpynlmvyx23/05/2024 8:30 AM EST Appointment MRI Q [address] [address] MRI LUMBAR SPINE WO IVCON MRI QComment on above:MRI LUMBAR SPINE WO IVCONStart: 01-13-2024 End: 60-54-2159Bzzwqqy encounter procedureMRI QComment on above:MRI THORACIC SPINE WO IVCONAcute low back pain, unspecified back pain laterality, unspecified whether sciatica present [M54.50]Start: 11-12-2023 End: 39-42-1012Athnteb encounter nmcexcdad69/04/2024 2:20 PM EDT Office Visit [facility] [address] [place] [address] Katherine Keith MD [address] [place] [address] post op in personSberkeley InstituteComment on above:post op in personStart: 11-12-2023 End: 79-29-0177Hpqnexg encounter fcabqwmwq03/04/2024 1:10 PM EDT Appointment Radiology [address] [place] [address] [phone] post op lumbar RadiologyComment on above:post op lumbarStart: 89-82-7824Qxphq-19 Vaccine ( season)Covid-19 Vaccine ( season)[facility]: 03-48-7121Dmiqi-19 Vaccine ( season)Covid-19 Vaccine ( season)[facility]: 81-54-8096Novyhgivl vaccinationMetrohealth [facility] Medical Center Start: 10-21-2023 End: 80-85-5529jaslbafhoy06/13/2024 8:50 AM EDT [facility] [place] [address] [place] [address] Alfonso Loyd PA-C [address] [place] [address] MYC Postop Spine InstituteComment on above:MYC PostopStart: 10-14-2023 End: 84-07-6354Aghauof encounter procedureRadiologyComment on above:post op lumbarpost op in personStart: 10-08-2023 End: 16-88-2109Qmnexjt encounter amiqpxike48/31/2024 12:40 PM EDT Office Visit [facility] [address] [place], [place] [phone] Katherine Keith MD [address] [place], [place] [phone] post op in personSberkeley InstituteComment on above:post op in personStart: 10-08-2023 End: 76-90-1021Edeoglz encounter etzlkpvkq23/31/2024 11:30 AM EDT Appointment Radiology [address] [place] [address] post op lumbar RadiologyComment on above:post op lumbarStart: 10-02-2023 End: 23-80-2022Arlmerjod to same day surgery centerAdmittingComment on above: EXPLORATION OF SPINAL FUSIONStart: 10-02-2023 End: 71-74-2480Tmsuweacqen spinal fusion MAIN PAVILIONStart: 10-02-2023 End: 61-00-8054Hxa facetectomy & foramotomy 1 segment lumbar MAIN PAVILION Start: 10-02-2023 End: 45-71-7361Teh facetectomy&foramtomy 1 sgm ea crv thrc/lmbr MAIN PAVILION Start: 10-02-2023 End: 75-39-4134Ykwnyowmj segmental instrumentation 3-6 vrt [facility] MAIN PAVILION Start: 67-56-8147Bujxzxjhvi hospital visit by physicianAdmittingComment on above:S/P lumbar spinal fusion [Z98.1]Start: 09-30-2023 End: 99-53-0684Hpejgut evaluation of patient and rmvxms2409/30/2023 10:00 AM EDT Nurse Visit [facility] [address] [place] [address] Melody Castaneda, PATRICIA Phone EducationSpine InstituteComment on above:Phone Education Start: 09-18-2023 End: 06-78-1887Plwrnru encounter iknaskzbd71/11/2024 2:00 PM EDT Office Visit Financial Clearance Phone Screening [place] [address] RegiFinancial Clearance Phone ScreeningComment on above:RegiStart: 09-17-2023 End: 33-49-7636IZRMLCNTJBSYXM AUREUS & MRSA SCREEN, PCR, NASALSTAPHYLOCOCCUS AUREUS & MRSA SCREEN, PCR, NASAL Lab Routine S/P lumbar spinal fusion Pre-op testing Expected: 09/17/2023, Expires: 12/17/2023[facility] Work Phone: Comment on above:Expected: 09/17/2023, Expires: 12/17/2023Start: 09-16-2023 End: 51-77-1266epmvqaaxzf45/09/2024 10:10 AM EDT [facility] [place] [address] [place] [phone] Alfonso Loyd PA-C [address] [place] [phone] 2 week post op( virtual visit)Spine InstituteComment on above:2 week post op( virtual visit)Start: 09-02-2023 End: 68-61-0078Gjavwdncl to same day surgery odwtys4609/02/2023 7:30 AM EDT - 09/02/2023 2:00 PM EDT Surgery Admitting [address] [place] [address] Katherine Keith MD [address] [place] [address] LATLUMBAR SPINE FUSIONAdmittingComment on above:LAT LUMBAR SPINE FUSIONStart: 09-02-2023 End: 16-06-3212Bqlfubxtegi lat extracavitary ea addl thrc/lmbrLAT THOR/LUMB, ADD'L SEG History of laminectomy Degenerative scoliosis in adult patient Pre-op testing 09/02/2023 7:30 AM EDT[facility] MAIN PAVILIONStart: 09-02-2023 End: 45-29-6315Juutcokbcuv lateral extracavitary lumbarLAT LUMBAR SPINE FUSION History of laminectomy Degenerative scoliosis in adult patient Pre-op testing 09/02/2023 7:30 AM [facility] MAIN PAVILIONStart: 09-02-2023 End: 94-29-6917Gpni biomchn dev intervertebral dsc spc w/arthrdINSERTION INTERBODY BIOMED DEVICE(S) W/ANT INSTR ANCHORING TO DISC SPACE W/INTERBODY FUSION,EA INTERSPACE History of laminectomy Degenerative scoliosis in adult patient Pre-op testing 09/02/2023 7:30AM [facility] MAIN PAVILIONStart: 09-02-2023 End: 90-34-2447Dazgnyibz non-segmental instrumentationMINIMALLY INVASIVE POSTERIOR NONSEGMENTAL INSTRUMENTATION History of laminectomy Degenerative scoliosis in adult patient Pre-op testing 09/02/2023 7:30 AM [facility] MA[facility]AVILION Start: 56-18-1301Ugaizhgnzb hospital visit by kwcwukwst19/25/2024 7:30 AM EDT Hospital Encounter Admitting [address] [place] [address] Katherine Keith MD [address] [place] [address] History of laminectomy [Z98.890]AdmittingComment on above:History of laminectomy [Z98.890]Start: 08-29-2023 End: 74-69-1493irjiizbjhi71/21/2024 8:30 AM EDT [facility] [place] [address] [place] [phone] Alfonso Loyd PA-C [address] [place] [address] 2 week post op( virtual visit)Spine InstituteComment on above:2 week post op( virtual visit)Start: 08-28-2023 End: 53-77-6290ulfslgkodm17/20/2024 10:00 AM EDT [facility] Patient Outreach [facility] [address] [place] [address] Provider, Nurse Sp[facility] [address] [place] [address] Nurse ALANISberkeley InstituteComment on above:Nurse ROBERTO Start: 08-19-2023 End: 38-97-7758Lwlxmhsft to same day surgery wcvvxl3708/19/2023 7:30 AM EDT - 08/19/2023 2:00 PM EDT Surgery Admitting [address] [place] [address] Katherine Keith MD [address] [place] [phone] LATLUMBAR SPINE FUSIONAdmittingComment on above:LAT LUMBAR SPINE FUSIONStart: 08-19-2023 End: 41-24-5272Kucyryplrqu lat extracavitary ea addl thrc/lmbrLAT THOR/LUMB, ADD'L SEG History of laminectomy Degenerative scoliosis in adult patient Pre-op testing 08/19/2023 7:30 AM [facility] MAIN PAVILIONStart: 08-19-2023 End: 09-33-7486Yblfbhkaynh lateral extracavitary lumbarLAT LUMBAR SPINE FUSION History of laminectomy Degenerative scoliosis in adult patient Pre-op testing 08/19/2023 7:30 AM [facility] MAIN PAVILIONStart: 08-19-2023 End: 84-30-8730Guju biomchn dev intervertebral dsc spc w/arthrdINSERTION INTERBODY BIOMED DEVICE(S) W/ANT INSTR ANCHORING TO DISC SPACE W/INTERBODY FUSION,EA INTERSPACE History of laminectomy Degenerative scoliosis in adult patient Pre-op testing 08/19/2023 7:30AM [facility] MAIN PAVILIONStart: 08-19-2023 End: 46-47-9865Vesqkfaju non-segmental instrumentationMINIMALLY INVASIVE POSTERIOR NONSEGMENTAL INSTRUMENTATION History of laminectomy Degenerative scoliosis in adult patient Pre-op testing 08/19/2023 7:30 AM [facility] Start: 38-09-4922Pviqotinrp hospital visit by /11/2024 7:30 AM EDT Hospital Encounter Admitting [address] [place] [address] Katherine Keith MD [address] [place] [address] History of laminectomy [Z98.890]AdmittingComment on above:History of laminectomy [Z98.890]Start: 08-12-2023 End: 91-64-5550oqlywhjubh45/04/2024 2:00 PM EDT [facility] Patient Outreach [facility] [place] [address] [place] [address] Provider, Nurse [facility] [address] [place] [address] Nurse Kennedy Krieger InstituteComment on above:Nurse [facility]: 08-11-2023 End: 51-32-2829HNB W Auto Differential panel - BloodCOMPLETE BLOOD COUNT AND DIFFERENTIAL Lab Routine History of laminectomy Degenerative scoliosis in adult patient Pre-op testing Iron deficiency anemia, unspecified iron deficiency anemia type Expected: 08/11/2023 (Approximate), Expires: 11/10/2023[facility] ClinicComment on above:Expected: 08/11/2023 (Approximate), Expires: 11/10/2023 Start: 08-11-2023 End: 51-19-9178Gevpeuih [Mass/volume] in Serum or PlasmaFERRITIN Lab Routine History of laminectomy Degenerative scoliosis in adult patient Pre-op testing I jessica deficiency anemia, unspecified iron deficiency anemia type Expected: 08/11/2023 (Approximate), Expires: 11/10/2023[facility] ClinicComment on above: Expected: 08/11/2023 (Approximate), Expires: 11/10/2023Start: 08-11-2023 End: 85-36-6781Isvm and Iron binding capacity panel - Serum or PlasmaIRON AND TIBC Lab Routine History of laminectomy Degenerative scoliosis in adult patient Pre-op testing Iron deficiency anemia, unspecified iron deficiency anemia type Expected: 08/11/2023 (Approximate), Expires: 11/10/2023[facility] Work Phone: Comment on above:Expected: 08/11/2023 (Approximate), Expires: 11/10/2023Start: 08-11-2023 End: 27-60-7114OHKIJJDRHQTCHW AUREUS & MRSA SCREEN, PCR, NASALSTAPHYLOCOCCUS AUREUS & MRSA SCREEN, PCR, NASAL Lab Routine History of laminectomy Degenerative scoliosis in adult patient Pre-op testing Expected: 08/11/2023 (Approximate), Expires: 11/10/2023[facility] ClinicComment on above:Expected: 08/11/2023 (Approximate), Expires: 11/10/2023Start: 08-06-2023 End: 44-90-5999Wangvxv encounter procedurePre AnesthesiaComment on above:pre op pre op labsStart: 07-30-2023 End: 01-51-8908Cupupki encounter qtaezdhyy07/22/2024 10:30 AM EDT Office [place] [address] pre op gcFinancial Clearance Phone ScreeningComment on above:pre op gcStart: 94-12-5842Paeojuz Directive Discussion Advance Directive DiscussionRegency Hospital Toledotart: 47-53-8354Rjnwnqtgpu Health ScreeningBehavioral Health ScreeningCleSelect Medical TriHealth Rehabilitation Hospitaltart: 87-52-5127Oynyaopvnq AssessmentDepression AssessmentCleSelect Medical TriHealth Rehabilitation Hospitaltart: 65-68-3792Cswvv-19 Vaccine ( season)Covid-19 Vaccine ( season)[facility]: 78-30-4841Ooakwkuvb vaccinationInfluenza Vaccine (#1)[facility]: 51-00-0823Ywaccldqcnlt Vaccine: 65+ (1 of 1 - PCV)Pneumococcal Vaccine: 65+ (1 of 1 - PCV)[facility]: 38-02-2247HCP Vaccine (1 - 1-dose 60+ series) RSV Vaccine (1 - 1-dose 60+ series)[facility]: 16-22-6489GVP Vaccine (1 - Risk 60-74 years 1-dose series)RSV Vaccine (1 - Risk 60-74 years 1-dose series)[facility]: 10-55-8973Wplacwjy specific antigen measurement Prostate Cancer Screening DiscussionCleSelect Medical TriHealth Rehabilitation Hospitaltart: 2007 Pneumococcal Vaccine: 50+ (1 of 1 - PCV)Pneumococcal Vaccine: 50+ (1 of 1 - PCV) [facility]: 89-10-9442Mpikmllgxbpk Vaccine: 65+ Years (1 of 1 - PCV) Pneumococcal Vaccine: 65+ Years (1 of 1 - PCV)[facility] HealthcareStart: 2007 Shingrix Vaccine (1 of 2)Shingrix Vaccine (1 of 2)[facility]: 85-59-5512Racsbxgq ScreeningDiabetes ScreeningRegency Hospital Toledotart: 2002 Screening for malignant neoplasm of colonRegency Hospital Toledotart: 23-41-1874Pnpzg panelLipid ScreeningRegency Hospital Toledotart: 90-21-0641Krhjn microalbumin profile DTaP,Tdap,Td Vaccine (1 - Tdap)[facility]: 73-12-6052Krmlzx PCP Team Chronic Disease VisitAnnual PCP Team Chronic Disease VisitRegency Hospital Toledotart: 54-00-9118Sgleqwg ScreeningAnxiety ScreeningRegency Hospital Toledotart: 03-00-9883MG Controlled (<130/80)BP Controlled (<130/80)[facility]: 1975 Depression ScreeningDepression ScreeningRegency Hospital [facility]edotart: 1975 Hepatitis C screeningHepatitis C ScreeningRegency Hospital Toledotart: 1957 Covid-19 Vaccine (#1)Covid-19 Vaccine (#1)[facility]: 1957 Screening for malignant neoplasm of colonNOMS HealthcareCT Cervical spine WO contrastCT CERVICAL SPINE WO IVCON Radiology Routine Spinal stenosis of cervical region 05/14/2024 9:43 AM [facility] Work Phone: End: 78-76-4439RH Lumbar spine WO contrastCT LUMBAR SPINE WO IVCON Radiology Routine Acute low back pain, unspecified back pain laterality, unspecified whether sciatica present 1 Occurrences starting 11/12/2023 until 12/11/2024 [facility] CenterComment on above:1 Occurrences starting 11/12/2023 until 12/11/2024ECG COMPLETEECG COMPLETE ECG Routine Pre-op exam 08/06/2023 8:48 AM [facility] Work Phone: End: 53-48-5194NBP COMPLETEECG COMPLETE ECG Routine SVT (supraventricular tachycardia) (HCC) Elevated troponin 1 Occurrences starting 06/08/2024 until 06/08/2025[facility] Work Phone: comment on above:1 Occurrences starting 06/08/2024 until 06/08/2025 End: 02-66-4410DBE(NEURO/NI)EMG(NEURO/NI) EMG Routine History of lumbar laminectomy for spinal cord decompression Degenerative scoliosis in adult patient Chronic low back pain, unspecified back pain laterality, unspecified whether sciatica present 1 Occurrences starting 04/30/2023 until 04/30/2024 [facility] Work Phone: Comment on above:1 Occurrences starting 04/30/2023 until 04/30/2024 End: 01-99-3062KYC(NEURO/NI)EMG(NEURO/NI) EMG Routine Adverse effect of treatment, sequela 1 Occurrences starting 11/12/2023 until 11/11/2024[facility]Comment [facility] above:1 Occurrences starting 11/12/2023 until 11/11/2024 End: 99-31-5534OU Cervical spine WO contrastMRI CERVICAL SPINE WO IVCON Radiology Routine Spinal stenosis of cervical region 1 Occurrences starting 02/03/[address] [place] [address] Work Phone: Comment on above:1 Occurrences starting 02/03/2024 until 03/04/2025 End: 36-48-1422TR Lumbar spine WO contrastMRI LUMBAR SPINE WO IVCON Radiology Routine Adverse effect of treatment, sequela 1 Occurrences starting 11/12/2023 until 12/11/2024[facility] CampusComment on above:1 Occurrences starting 11/12/2023 until 12/11/2024 End: 37-94-2848GJ Thoracic spine WO contrastMRI THORACIC SPINE WO IVCON Radiology Routine Adverse effect of treatment, sequela 1 Occurrences starting 11/12/[address] [place] [address] Work Phone: Comfaxl on above:1 Occurrences starting 11/12/2023 until 12/11/2024 End: 57-46-0806Kwbmj spine lumbosacral minimum 4 viewsXR LUMBAR MOTION 4V AP/LAT/ FLEX/EXT Radiology Routine Spinal stenosis, lumbar region with neurogeni c claudication 1 Occurrences starting 03/21/[address] [place] [address] Work Phone: Comment on above:1 Occurrences starting 03/21/2023 until 04/19/2024 End: 47-79-0950LN Cervical spine AP and LateralXR CERV GENERAL 2V AP/LAT Radiology Routine Spinal stenosis of cervical region 1 Occurrences starting 05/06/2024 until 06/05/2025[facility] ClinicComment on above:1 Occurrences starting 05/06/2024 until 06/05/2025 End: 39-44-9336DY Cervical spine AP and LateralXR CERV GENERAL 2V AP/LAT Radiology Routine S/P cervical spinal fusion 1 Occurrences starting 06/29/2024 until 07/29/2025[facility] Work Phone: Comment on above:1 Occurrences starting 06/29/2024 until 07/29/2025 End: 88-98-4008KH Lumbar spine AP and LateralXR LUMBAR LIMITED 2V AP/LAT Radiology Routine History of laminectomy Degenerative scoliosis in adult patient 1 Occurrences starting 07/11/2023 until 08/10/2024[facility] ClinicComment on above:1 Occurrences starting 07/11/2023 until 08/10/2024[facility] Immunizations Immunization DateImmunizationNotesCare PdyjfbbtEqhlxqyu40-41-3054kqtdmwcga virus vaccine, unspecified formulationKathy Lue [facility]10-22-2021SARS-CoV-2 (COVID-19) mRNA BNT-162b2 vaxMichael NILL [phone]-KccndMercy Health St. [facility] [place] 94-11-4449QNPP-CoV-2 (COVID-19) mRNA BNT-162b2 vaxMichael NILL [phone]-ZxhclAdena Pike Medical Center 24-65-9982ZNYU-CoV-2 (COVID-19) mRNA BNT-162b2 vaxMichael NILL [phone]-WssgdBellevue Hospital Surgery [place] Comment on above:Result Comment: 2022-03-29: [id number]: Highlighted row has not occurred!18-71-2290icvveablr virus vaccine, unspecified formulationMichael NILL General Surgery BellevueNEGATED: Highlighted row has not occurred!05-16-1913yexczjity virus vaccine, live, attenuated, for intranasal useMichael NILL General [facility] [place] Payers DatePayer CategoryPayerPolicy [id number] Health [id number] Health [id number] 2.16.840.1.213637.3.579.2.647 [id number] 2.16840.1.023063.3.57[id number] 2.16.840.1.615323.3.57[id number] 2.16.840.1.644388.3.57[id number] 2.16840.1.023918.3.57[id number] 2.16.840.1.178910.3.57[id number] 2.16.840.1.619722.3.57[id number] 2.16.840.1.756479.3.57[id number] 2.16.840.1.945070.3.57[id number] 2.16.840.1.499972.3.579.[id number] 2.16.840.1.344222.3.57[id number] 2.16.840.1.406648.3.57[id number] 2.16.840.1.160469.3.579.2.1259UnknownRegular [id number] 94yigv07-204o-5763-9cmq-[id number] 2.16.840.1.2[id number] 2.16.840.1.143043.3.579.2.531 Social History DateTypeDetailFacilityStart: 04-03-2022 End: 56-21-1358Hqfncuw smoking statusNever smoked tobacco (finding)[facility] BellevueStart: 66-03-0838Hzfzewm smoking statusNeverGeneral Surgery BellevueStart: 04-30-2023 End: 94-99-7327Zgz Assigned At [facility]art: 53-30-2933Bai Assigned At [facility] Southtart: 09-12-2008 End: 02-56-9956Ewpddfl intakeNot AskedRegency Hospital Toledotart: 28-19-2695Rovnyt identityIdentifies as male gender (finding)[facility]: 03-20-2023 Sexual orientationHeterosexual (finding)[facility]: 24-50-4974Exqhabk use and exposureFormer smokeless tobacco userMetrohealth [facility] Medical Center End: 94-30-0464Mqnchmm of tobacco useChews TobaccoRegency Hospital Toledotart: 04-30-2023 End: 57-53-2000Ccpulwc of Social functionRegency Hospital Toledotart: 08-06-2023 End: 34-05-9085Wsuhmpg intakeLifetime non-drinker (finding)[facility] Medical CenterHa the electric, gas, oil, or water company threatened to shut off services in your home in past 12MoNUniversity [facility]als [facility](I/We) worried whether (my/our) food would run out before (I/we) got money to buy more.Never trueMetrohealth [facility] Heights Medical CenterTobabristow medical center – [facility] smoking status NHISTobacco smoking consumption unknownNODC HealthcareStart: 30-59-6955Pyw assigned at birthNot on fileNODC HealthcareStart: 56-12-9502Djt Male (finding)[facility] Hospitaltart: 90-54-7943Enbviqh use and exposureSmokeless tobacco non-userNODC HealthcareSexual OrientationMercy Health St. [facility] General Surgery [place] Medical Equipment Procedure CodeEquipment CodeEquipment Original TextEquipment IdentifierDates Signify Gel Instafill Cartridge 5cc [id number]: 55-44-7122Eoug Mis Locking [id number]_dmuAkggr: 14-50-3524Rwxbh Infuse 20ga Medium Bovine Collagen Rhbmp-2 2x1in Bone Vial Absorbable - [id number]_dvpGzcgc: 48-51-6353Nfubomz Gel Instafill Cartridge 5cc [id number]_impStart: 63-70-8186Rcct Mis 5.5mm Curved Jw Ti Alloy [id number]_impStart: 08-19-2023 Creo Mis 5.5mm Curved Jw Ti Alloy [id number]_impStart: .0x45 [id number]_impStart: 11-62-4694Jlzk One Robotic Modular Screw 6.5mm X 50mm [id number]_impStart: 14-25-6317Dpcl One Robotic Modular Screw 6.5mm X 55mm [id number]_impStart: .[id number]_impStart: 82-35-6153Ksczci Rise-L 3d Lordotic 23p92w8aq Spinal [id number]_hdmKmfiz: 76-19-6816Znznle Rise-L 3d Lordotic 49l70i7hu Spinal [id number]_bewJkukc: 46-74-1955Djoer Canopy 9mm Bone Shelf Inline Spine - [id number]_uuiLfucp: 08-57-5123Srabf Canopy 2.6mm 4mm Bone Self Drill Laminoplasty Spine - [id number]_efeYhwyv: 79-47-5723Gftifw 2.6mm Screw Self-Drilling [id number]_impStart: 06-02-2024 Functional Status LuxlZrthogxvhcUukuvkQfcprnjt08-29-8830Rxf you deaf, or do you have serious difficulty hearingNo 06/08/2024 3:04 PM Markus Crews RN [facility] HospitalLvgfou67-94-4407Ans you blind, or do you have serious difficulty seeing, even when wearing glassesNo 06/08/2024 3:04 PM Markus Crews RN [facility]04-01-2025Do you have serious difficulty walking or climbing stairsNo 06/08/2024 3:04 PM Markus Crews RN [facility]04-01-2025Do you have difficulty dressing or bathingYes 06/08/2024 3:04 PM Markus Crews RN [facility] HospitalYssfso33-62-8925Gwuvdkk of a physical, mental, or emotional condition, do you have difficulty doing errands alone such as visiting a physician's office or shoppingYes 06/08/2024 3:04 PM Markus Crews RN [facility] HospitalXjxlwj55-63-8815Hknecnzjtp StatusN/Kike-[facility] Surgery Ocgpgljc86-66-2320Slz you deaf, or do you have serious difficulty hearingNo 10/04/2023 11:49 AM Hayley Parrish RN [facility] HospitalLceygy10-55-1152Dam you blind, or do you have serious difficulty seeing, even when wearing glassesNo 10/04/2023 11:49 AM Hayley Parrish RN NoCTrinity Health System East CampusIbgnhj71-47-4394Ll you have serious difficulty walking or climbing stairsNo 10/04/2023 11:49 AM Hayley Parrish RN [facility]07-27-2024Do you have difficulty dressing or bathing No 10/04/2023 11:49 AM Hayley Parrish RN [facility] HospitalJdpzps01-90-4497Ucdxiud of a physical, mental, or emotional condition, do you have difficulty doing errands alone such as visiting a physician's office or shoppingNo 10/04/2023 11:49 AM Hayley Parrish RN [facility] [id number] StatusN/A [facility]08-23-2023Functional StatusN/A[facility]06-28-[address] [facility] [address] [facility] [id number] StatusN/AGeneral Surgery [place] Mental Status EdckRjwfuaaddzGbroreDkvgcequ93-59-8357Evazrnv of a physical, mental, or emotional condition, do you have serious difficulty concentrating, remembering, or making decisionsYes 06/08/2024 3:04 PM Makrus Crews RN [facility] HospitalLryoft76-03-1949Iztdpyf of a physical, mental, or emotional condition, do you have serious difficulty concentrating, remembering, or making decisionsNo 10/04/2023 11:49 AM Hayley Parrish RN [facility] Clinical Notes 05-07-2022 to 12-24-2024 Note Date & [id number] NoteUT Cardiology - [facility] V[facility] Donavan Rodriguez is [...] normal. Allergies Allergies[1] [facility] (more content not included)...[facility] 11-23-2024 NoteGeneral Surgery Office/Clinic Note Chief [...] 5 mg= 1 t (more content not included)...[facility] HospitalComment on above:Result Comment: Electronically Signed By: VAMSI JERNIGAN, Camryn Baker\Date and Time Signed: 11/23/24 15:15 [id number] History of Present illness Narrative* Mahamed Gray [...] plantarly bilaterally. Physical Exam documented in this encounterCedar County Memorial HospitalIfuethyxzz22-68-7084 History of Present illness Narrative* Mahamed Gray [...] Patient was advised that we will contact [facility]'s Prosthetics that specializes in braces tosee [...] 4. Reappoint: 1 week. documented in this encounterCedar County Memorial HospitalCnymdxnbtu26-17-9831 NoteDebra [place] [address]-08-2025 History of Present illness Narrative* Alfonso Loyd PA-C - 07/15/2024 9:04 AM EDT Images from the original note were not included. SPINE SURGERY FOLLOW UP This is a virtual visit using [employer] Video Visit. It required patient- provider interaction for the medical decision making as documented below. I have communicated my name and active licensure. The patient's identity and physical location wereverified at the time of this visit. Either the patient or their legal title insurance sales representative has been informed of the [...] TIME: 9:13 AM PAGER: documented in this encounterMet[facility]04-22-2025 NoteWvumedicine [facility] Hospital04-22-2025 History of Present illness Narrative* Alfonso Loyd PA-C - 06/29/2024 9:18 AM EDT Images from the original note were not included. SPINE SURGERY FOLLOW UP This is a virtual visit using [employer] Zoom Video Visit. It required patient- provider interaction for the medical decision making as documented below. I have communicated my name and active licensure. The patient's identity and physical location wereverified at the time of this visit. Either the patient or their legal title insurance sales representative has been informed of the [...] new pain or redness in the calves. [place] were removed. Incision is healing well. Patient [...] advised to coordinate cardiology care with existing end user consultant in [place] since he does not want to come to [facility]. The majority of the visit was spent counseling and/or coordinating care for the patient. Total faceto face time was 30 minutes. SIGNATURE: Alfonso Loyd PA-C PATIENT NAME: Braden Rodriguez DATE: June 29, 2024 TIME: 9:20 AM PAGER: documented in this encounterMetrohealth [facility] Center04-14-2025 Telephone encounter Note * Telephone Encounter - Khushboo Mazariegos RN - 06/21/2024 8:30 AM EDT Neuro SPINE CARE COORDINATION QUICK NOTE Patient requesting oxycodone refill. Last filled: 06/15/24 Surgery: 06/02/24 F/U: 06/29/24 [facility]04-14-2025 Miscellaneous Notes* Telephone Encounter - Khushboo Mazariegos RN - 06/21/2024 8:30 AM EDT Neuro SPINE CARE COORDINATION QUICK NOTE Patient requesting oxycodone refill. Last filled: 06/15/24 Surgery: 06/02/24 F/U: 06/29/24 documented in this encounterMetrohealth [facility]04-09-2025 [facility]04-09-2025 History of Present illness Narrative* Garcia [...] concerns. Garcia Lomax LPN documented in this encounterMetrohealth [facility]04-07-2025 Telephone encounter Note * Telephone Encounter - [...] Taking Oxycodone 2 every 5 hours. [facility]04-07-2025 Miscellaneous Notes* Telephone Encounter - Emelia Haider [...] 2 every 5 hours. documented in this encounterMetrohealth [facility] Center04-04-2025 Telephone encounter Note * Telephone Encounter - [...] RN June 11, 2024 11:30 AM [facility] Work Phone: 1(918) 939-925304-04-2025 Miscellaneous Notes* Telephone Encounter - Viridiana Luciano [...] 11, 2024 11:30 AM documented in this encounterMetrohealth [facility] Center04-03-2025 Telephone encounter Note * Telephone Encounter - Gladis Cabello RN - 06/10/2024 12:46 PM EDT Operations During Hospitalization: 06/02/2024: C3, C7 dome laminectomy, C4-6 laminoplasty [facility]04-03-2025 Miscellaneous Notes* Telephone Encounter - Gladis Cabello RN - 06/10/2024 12:46 PM EDT Operations During Hospitalization: 06/02/2024: C3, C7 dome laminectomy, C4-6 laminoplasty documented in this encounterMetrohealth [facility] Center04-02-2025 Telephone encounter Note * Telephone Encounter - Gladis Cabello RN - 06/09/2024 11:57 AM EDT Operations During Hospitalization: 06/02/2024: C3, C7 dome laminectomy, C4-6 laminoplasty Shared with RN team for review. [facility]04-02-2025 Miscellaneous Notes* Telephone Encounter - Gladis Cabello RN - 06/09/2024 11:57 AM EDT Operations During Hospitalization: 06/02/2024: C3, C7 dome laminectomy, C4-6 laminoplasty Shared with RN team for review. documented in this encounterMetrohealth [facility] Center04-01-2025 NoteWvumed[facility]04-01-2025 NoteWvumedicine [facility] Hospital04-01-2025 NoteWvumedicine [facility] Hospital03-31-2025 NoteHNO ID: [id number] Author: MARKUS VIVEROS RN Service: Nursing Author Type: Registered Nurse Type: Nursing Progress Note Filed: 06/07/2024 18:52 Note Text: Pt refusing telemetry. Mariel De Leon notified.[facility] 06-07-2024 NoteWvumedicine Harrison Community Hospital03-31-2025 NoteWvumedicine [facility] Hospital03-30-2025 NoteWvumedicine [facility] Hospital03-29-2025 NoteW[facility]umedicine [facility] Hospital03-28-2025 NoteW[facility]03-27-2025 Note [facility]03-27-2025 NoteW[facility]umed[facility] Hospital03-27-2025 NoteW[facility] Hospital03-27-2025 NoteW[facility] 06-03-2024 NoteWvumedicine [facility] Hospital03-26-2025 NoteW[facility] Hospital03-26-2025 NoteW[facility] Hospital03-26-2025 NoteW[facility] Hospital03-26-2025 NoteW[facility]03-10-2025 Note [facility]03-10-2025 History of Present illness Narrative* Olesya Veras, PATRICIA - 05/17/2024 9:32 AM EDT Patient referred to Blood Management for pre-surgical optimization. Hgb 14.9 which exceeds Blood Management guidelines for intervention. documented in this encounterMetrohealth [facility]03-07-2025 History of Present illness Narrative* Zhang Rodríguez [...] PATIENT PRESENTS WITH AN IMPLANTABLE OR ATTACHED BRAID PATTERN SETTER: No RADIOLOGY DEPARTMENT: CT; Exam(s) Completed: CSP PERIPHERAL IV DATA: Not applicable SIGNED BY: DEON Sierra May 14, 2024 9:44 AM documented in this encounterMetrohealth [facility] Center03-07-2025 NoteHNO ID: [id number] Author: ZHANG RODRÍGUEZ CT Service: Radiology Author [...] PATIENT PRESENTS WITH AN IMPLANTABLE OR ATTACHED BRAID PATTERN SETTER: No RADIOLOGY DEPARTMENT: CT; Exam(s) Completed: CSP PERIPHERAL IV DATA: Not applicable SIGNED BY: DEON Sierra May 14, 2024 9:44 AMNorthern [facility]03-05-2025 NoteWvumedicine [facility] Hospital03-05-2025 History of Present illness Narrative* Katherine Keith [...] TIME: 12:22 PM PAGER: documented in this encounterMetrohealth [facility] Center03-05-2025 Instructions* Patient Instructions* Rhona Boss MD - 05/12/2024 8:53 AM EST Images from the original note were not included. [facility] PATIENT PREOPERATIVE INSTRUCTIONS Katherine Keith MD has scheduled you for your procedure at this surgery center: [facility] [place] Scheduling Office: [phone] --[address] [place] [address]. Please read below carefully for your personalized [...] office. If you are currently using a wydj-ezz-ztog injectable or oral medication for diabetes or [...] or other anticoagulants without consulting with your end user consultant or prescribing physician. - Stop ALL herbal [...] please check with your dialysis center or loan inspector to see if any adjustments need to [...] Procedures: - YOU MUST HAVE A RESPONSIBLE CONSULTING APPLICATION ENGINEER TAKE YOU HOME. A FRUIT BUYING GRADER OR EQUITY STRUCTURER CANNOT BE MADE A RESPONSIBLE CONSULTING APPLICATION ENGINEER. - We recommend that a responsible person [...] call the Friday before. Your surgeon s spares scheduler will tell you what time to call the office. - If you have not reached the departmental spares scheduler by 5 P.M., call [phone] after 5 P.M. the day before your surgery. Please be aware that emergency situations arise, which may delay or change your surgical time. If this happens, we will notify you as soon as possible and regret any inconvenience. If you already have an Advance Directive, please fax a copy to [phone] or email to for it to be [...] day. Rhona Boss MD documented in this encounterMetrohealth [facility]03-05-2025 History and physical note * Rhona Boss [...] [facility]:: [facility] Status of surgery/procedure:: Scheduled Date of surgery/procedure:: [...] fevers. Neurological: No history of TIA's, stroke, CONTROL SYSTEM COMPUTER SCIENTIST tumor, impaired sensorium, hemiplegia, paraplegia orquadraplegia. No [...] 402 QTC Calculation ([place]) 411 Calculated P [place] 59 Calculated R [place] 48 Calculated T [place] 72 Impression NORMAL SINUS RHYTHM POSSIBLE LEFT ATRIAL ENLARGEMENT BORDERLINE ECG No results found for this or any previous visit (from the past 40689 hours). Instructions Given to Patient: Instructions located in the after visit summary. Patient given verbal and written preop instructions and voices comprehension and compliance. SIGNATURE: Rhona Boss MD PATIENT NAME: Braden Rodriguez DATE: May 12, 2024 TIME: 8:38 AM PAGER/CONTACT #: [facility]03-05-2025 History and physical note* Rhona Boss MD - 05/12/2024 8:38 AM EST Images from the original note were not included. [place] [facility] Pre-Anesthesia Consultation Clinic HISTORY [...] [facility]:: [facility] Status of surgery/procedure:: Scheduled Date of surgery/procedure:: [...] fevers. Neurological: No history of TIA's, stroke, CONTROL SYSTEM COMPUTER SCIENTIST tumor, impaired sensorium, hemiplegia, paraplegia orquadraplegia. No [...] 402 QTC Calculation (Bazett) 411 Calculated P [place] 59 Calculated R [place] 48 Calculated T [place] 72 Impression NORMAL SINUS RHYTHM POSSIBLE LEFT ATRIAL ENLARGEMENT BORDERLINE ECG No results found for this or any previous visit (from the past 30360 hours). Instructions Given to Patient: Instructions located in the after visit summary. Patient given verbal and written preop instructions and voices comprehension and compliance. SIGNATURE: Rhona Boss MD PATIENT NAME: Braden Rodriguez DATE: May 12, 2024 TIME: 8:38 AM PAGER/CONTACT #: documented in this encounterMetrohealth [facility] Center02-26-2025 NoteWvumedicine [facility] Hospital02-26-2025 History of Present illness Narrative* Katherine Keith MD - 05/05/2024 3:11 PM EST Virtual visit: I have communicated my name and active licensure. The patient's identity and physical location wereverified at the time of this visit. Either the patient or their legal title insurance sales representative has been informed of the risks and benefits of -- and alternatives to -- treatment through a remote evaluation andconsents to proceed with the evaluation remotely. 10 minutes Follow up virtual visit. Last seen 01/12/25 and we decided to continuing to monitor his right foot drop which persisted. His left foot was starting to make some progress. He reports no manager change the last 3 months. He feels like [...] laminoplasty Katherine Keith MD documented in this encounterMetrohealth [facility] Center12-14-2024 History of Present illness Narrative* Joseph Carter [...] PATIENT PRESENTS WITH AN IMPLANTABLE OR ATTACHED BRAID PATTERN SETTER: No RADIOLOGY DEPARTMENT: MR; Exam(s) Completed: Spine: Cervical spine PERIPHERAL IV DATA: Not applicable SIGNED BY: RT Lydia(R) February 21, 2024 4:25 PM documented in this encounterMetrohealth Cleveland Heights [facility] Center12-14-2024 NoteWvumedicine [facility]11-26-2024 Telephone encounter Note* Telephone Encounter - Melody Castaneda RN - 02/03/2024 8:53 AM EST Attempted to contact patient regarding Cervical MRI that was ordered Left detailed message on patient identified voicemail. Number to schedule provided. [facility]11-26-2024 Miscellaneous Notes* Telephone Encounter - Melody Castaneda RN - 02/03/2024 8:53 AM EST Attempted to contact patient regarding Cervical MRI that was ordered Left detailed message on patient identified voicemail. Number to schedule provided. documented in this encounterMetrohealth [facility] Center11-05-2024 NoteWvumed[facility]11-05-2024 History of Present illness Narrative* Katherine Keith [...] Sampson Christopher MD (AJ) documented in this encounterMetrohealth Cleveland [facility] Center11-05-2024 NoteWvumed[facility] Hospital11-05-2024 History of Present illness Narrative* Letty Mckeon [...] of Care Visit completed when applicable. Mis Girmes, concession manager B.S. TJIM Letty Mckeon MD documented in this encounterMetrohealth Cleveland [facility] Center11-05-2024 History of Present illness Narrative* Mo Sainz, [...] PATIENT PRESENTS WITH AN IMPLANTABLE OR ATTACHED BRAID PATTERN SETTER: No RADIOLOGY DEPARTMENT: MR; Exam(s) Completed: Spine: Thoracic spine and Lumbar spine PERIPHERAL IV DATA: Not applicable SIGNED BY: RT Blossom(R) January 13, 2024 7:51 AM documented in this encounterMetrohealth [facility] Heights [facility] Center11-05-2024 NoteWvumedicine [facility] Hospital11-05-2024 History of Present illness Narrative* Aaron Pitts [...] PATIENT PRESENTS WITH AN IMPLANTABLE OR ATTACHED BRAID PATTERN SETTER: No RADIOLOGY DEPARTMENT: CT; Exam(s) Completed: Spine PERIPHERAL IV DATA: Not applicable SIGNED BY: RT Cj(R) January 13, 2024 8:52 AM documented in this encounterMetrohealth [facility] Heights [facility] Center11-05-2024 NoteWvumedicine [facility] Hospital09-27-2024 Telephone encounter Note* Telephone Encounter - Melody Castaneda RN - 12/05/2023 9:11 AM EDT Called patient to follow up after steroid taper. No answer. Left message to return call to the office. [facility]09-27-2024 Miscellaneous Notes* Telephone Encounter - Melody Castaneda RN - 12/05/2023 9:11 AM EDT Called patient to follow up after steroid taper. No answer. Left message to return call to the office. documented in this encounterMetrohealth [facility] Center09-05-2024 Note* Addendum Note - Alfonso Loyd PA-C - 11/13/2023 4:25 PM EDTAddended by: ALFONSO LOYD on: 11/13/2023 04:25 PM Modules accepted: Orders [facility]09-05-2024 Miscellaneous Notes* Addendum Note - Alfonso Loyd PA-C - 11/13/2023 4:25 PM EDTAddended by: ALFONSO LOYD on: 11/13/2023 04:25 PM Modules accepted: Orders documented in this encounterMetrohealth [facility] Center09-04-2024 NoteWvumed[facility]09-04-2024 History of Present illness Narrative* Katherine Keith [...] above Meenakshi Morin MD Spine Surgery Fellow [phone] [facility]: [facility] [employer]: [id number] I reviewed the information obtained and documented by the fellow. I examined the patient and evaluated all available films and pertinent documents. We discussed the case and I agree with the plans asoutlined in this note. SIGNATURE: Katehrine Keith MD PATIENT NAME: Braden Rodriguez DATE: November 12, 2023 TIME: 2:47 PM PAGER: documented in this encounterMetrohealth [facility] Center09-04-2024 History of Present illness Narrative* Viry Celaya [...] PATIENT PRESENTS WITH AN IMPLANTABLE OR ATTACHED BRAID PATTERN SETTER: No RADIOLOGY DEPARTMENT: General X-ray: Exam(s) Completed: Spine X-Ray(s): Lumbar AP / LAT / L5-S1 PERIPHERAL IV DATA: Not applicable SIGNED BY: MARY Li) November 12, 2023 1:13 PM documented in this encounterMetrohealth [facility] Center09-04-2024 NoteWvumed[facility]09-03-2024 Telephone encounter Note* Telephone Encounter - Melody [...] he voiced appreciation for the call [facility]09-03-2024 Miscellaneous Notes* Telephone Encounter - Melody Castaneda [...] call to the office. documented in this encounterMetrohealth [facility] Center09-03-2024 Telephone encounter Note * Telephone Encounter - Melody Castaneda RN - 11/11/2023 4:04 PM EDT Attempted to contact patient to discuss his my chart message and medication refill request. Left message to return call to the office. [facility]08-28-2024 Telephone encounter Note* Telephone Encounter - Melody Castaneda RN - 11/05/2023 3:44 PM EDT Prior auth completed, awaiting approval [facility]08-28-2024 Miscellaneous Notes* Telephone Encounter - Melody Castaneda RN - 11/05/2023 3:44 PM EDT Prior auth completed, awaiting approval * Telephone Encounter - Mann Benavides - 11/05/2023 12:37 PM EDT [facility] called re Rx Refill, needs a Pre-auth because insurance only cover 2 refills. Pls do the pre-auth through: covermymeds. The gibbons: [id number] (low/upper is ok). Pls let [facility] know once it's approved by call [phone] documented in this encounterMetrohealth Cleveland Heights [facility] Center08-28-2024 Telephone encounter Note * Telephone Encounter - Melody Castaneda RN - 11/05/2023 3:43 PM EDT Prior auth completed [id number] [facility]08-28-2024 Miscellaneous Notes* Telephone Encounter - Melody Castaneda RN - 11/05/2023 3:43 PM EDT Prior auth completed [id number] * Telephone Encounter - Tara Sarabia - 11/05/2023 2:04 PM EDT Received a fax from Cover [employer] Med[employer] requesting a prior authorization for: Hydrocodone-Acetaminophen 5-325 MG Tablets Cover My Meds [place]: [id number] Pharmacy: [id number] Fax scanned in to pt's chart for our records. documented in this encounterMetrohealth [facility] Center08-28-2024 Telephone encounter Note * Telephone Encounter - Tara Sarabia - 11/05/2023 2:04 PM EDT Received a fax from [employer] requesting a prior authorization for: Hydrocodone-Acetaminophen 5-325 MG Tablets Cover My Meds [place]: [id number] Pharmacy: [id number] Fax scanned in to pt's chart for our records. [facility]08-28-2024 Telephone encounter Note* Telephone Encounter - Mann Benavides - 11/05/2023 12:37 PM EDT [facility] called re Rx Refill, needs a Pre-auth because insurance only cover 2 refills. Pls do the pre-auth through: covermymeds. The gibbons: [id number] (low/upper is ok). Pls let [facility] know once it's approved by call [phone] [facility]08-15-2024 Note* Addendum Note - Alfonso Loyd PA-C - 10/23/2023 11:22 AM EDTAddended by: ALFONSO LOYD on: 10/23/2023 11:22 AM Modules accepted: Orders [facility]08-15-2024 Miscellaneous Notes* Addendum Note - Alfonso Loyd PA-C - 10/23/2023 11:22 AM EDTAddended by: ALFONSO LOYD on: 10/23/2023 11:22 AM Modules accepted: Orders * Telephone Encounter - Melody Castaneda RN - 10/23/2023 11:03 AM EDT Called [facility] pharmacy and confirmed they do not have the [place] available. Pharmacist cancelled order. Will update JUDY to send to new pharmacy listed. documented in this encounterMetrohealth [facility] Center08-15-2024 Telephone encounter Note * Telephone Encounter - Melody Castaneda RN - 10/23/2023 11:03 AM EDT Called [facility] pharmacy and confirmed they do not have the [place] available. Pharmacist cancelled order. Will update JUDY to send to new pharmacy listed. [facility]08-13-2024 NoteWvumed[facility]08-13-2024 History of Present illness Narrative* Alfonso Loyd PA-C - 10/21/2023 8:40 AM EDT SPINE SURGERY FOLLOW UP This is a virtual visit using [employer] Zoom Video Visit. It required patient- provider interaction for the medical decision making as documented below. I have communicated my name and active licensure. The patient's identity and physical location wereverified at the time of this visit. Either the patient or their legal title insurance sales representative has been informed of the [...] TIME: 8:40 AM PAGER: documented in this encounterMetrohealth [facility] Center08-08-2024 Telephone encounter Note * Telephone Encounter - Melody Castaneda RN - 10/16/2023 4:58 PM EDT Noted medication update. No Issue for change from surgical standpoint. [facility]08-08-2024 Miscellaneous Notes* Telephone Encounter - Melody Castaneda [...] to Lyrica 50 mg. documented in this encounterMetrohealth Cleveland Heights [facility] Center08-08-2024 Telephone encounter Note * Telephone Encounter - Vanessa Aguirre - 10/16/2023 10:19 AM EDT Naye from Dr. Ester Cain's office called. Pt was seen yesterday complaining of the side effect from Gabapentin and the doctor change the medication to Lyrica 50 mg. [facility] Work Phone: 1(451) 570-636908-01-2024 Note* Addendum Note - Alfonso Loyd PA-C - 10/09/2023 3:44 PM EDTAddended by: ALFONSO LOYD on: 10/09/2023 03:44 PM Modules accepted: Orders [facility]08-01-2024 Miscellaneous Notes* Addendum Note - Alfonso Loyd PA-C - 10/09/2023 3:44 PM EDTAddended by: ALFONSO LOYD on: 10/09/2023 03:44 PM Modules accepted: Orders documented in this encounterMetrohealth Cleveland [facility] Center07-27-2024 [facility]07-27-2024 NoteW[facility]07-27-2024 NoteW[facility]07-26-2024 NoteW[facility]07-26-2024 Note [facility]07-25-2024 NoteW[facility]07-25-2024 NoteW[facility]07-23-2024 Telephone encounter Note* Telephone Encounter - Aaron [...] Student Visiting Researcher OUTCOMES RESEARCH MAIN [facility]07-23-2024 Miscellaneous Notes* Telephone Encounter - Aaron Garcia [...] Researcher OUTCOMES RESEARCH MAIN documented in this encounterMetrohealth Cleveland Heights [facility] Center07-23-2024 NoteWvumed[facility]07-23-2024 History of Present illness Narrative* Melody Castaneda RN - 09/30/2023 10:00 AM EDT Neuro SPINE CARE COORDINATION PRE-OP VISIT Met with patient via phone for pre op education. Given both written and verbal instructions re : Skin prep, wound care, pain management and post op restrictions. Provided to patient: [facility] Surgery Guide, skin prep supplies, Spine Surgery Pre/post op education packet. Yes Reviewed with patient to report to desk J19 for surgery ? Yes. Reviewed with the patient to call [phone] the day before to get surgery report [...] daughter. Melody Castaneda RN documented in this encounterMetrohealth [facility]07-17-2024 Telephone encounter Note * Telephone Encounter - Judi McleanDALLAS - 09/24/2023 1:00 PM EDT CARE CONTINUUM ADVISOR ASSESSMENT PRIMARY CARE PHYSICIAN: Ester Cain MD OR Surgery Date: 10/02/23 Health Insurance: [employer] [facility] Financial Resources: Retired Primary Contact: Extended Emergency Contact Information Primary Emergency Contact: Marycarmen Rodriguez Address: [address] [place] [address] [place] Mobile Relation: Spouse Secondary Emergency Contact: NORA RODRIGUEZ Mobile Relation: Son Other Important Patient Contacts: None 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 No FREEDOM OF CHOICE: Level of Care Discussed: Home Care Financial Disclosure Provided: No Financial Disclaimer Provided: No Provider List: Home Care Provider list within the patient's requested geographic area shared with the patient/family: Yes - Within [address] of [address] [place] [address] Provider Choices Collected Home Health: no prefernece Interventions: N/A SIGNATURE: DALLAS Barros PATIENT NAME: Braden Rodriguez DATE: September 24, 2023 TIME: 1:00 PM PAGER/CONTACT #: [facility]07-17-2024 Miscellaneous Notes* Telephone Encounter - Judi Mclean LSW - 09/24/2023 1:00 PM EDT CARE CONTINUUM ADVISOR ASSESSMENT PRIMARY CARE PHYSICIAN: Ester Cain MD OR Surgery Date: 10/02/23 Health Insurance: [employer] [facility] Financial Resources: Retired Primary Contact: Extended Emergency Contact Information Primary Emergency Contact: Marycarmen Rodriugez Address: [address] [place] [address] OF [place] Mobile Relation: Spouse Secondary Emergency Contact: NORA RODRIGUEZ Mobile Relation: Son Other Important Patient Contacts: None 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 No FREEDOM OF CHOICE: Level of Care Discussed: Home Care Financial Disclosure Provided: No Financial Disclaimer Provided: No Provider List: Home Care Provider list within the patient's requested geographic area shared with the patient/family: Yes - Within [address] of [address] [place] [address] Provider Choices Collected Home Health: no prefernece Interventions: N/A SIGNATURE: DALL[place] Barros PATIENT NAME: Braden Rodriguez DATE: September 24, 2023 TIME: 1:00 PM PAGER/CONTACT #: * Telephone Encounter - Judi Mclean LSW - 09/24/2023 12:58 PM EDT CM was able to leave a brief detailed message on identified vm requesting call back to discuss postop care. CM provided contact information. documented in this encounterMetrohealth [facility]07-17-2024 Telephone encounter Note * Telephone Encounter - Judi Mclean LSW - 09/24/2023 12:58 PM EDT CM was able to leave a brief detailed message on identified vm requesting call back to discuss postop care. CM provided contact information. [facility]07-09-[facility] Telephone encounter Note* Telephone Encounter - Melody Castaneda RN - 09/16/2023 3:36 PM EDT Attempted to return call to home care PT Patient is coming back in for surgery in 2 weeks. Does not nee home care at this time. [facility]07-09-2024 Miscellaneous Notes* Telephone Encounter - eMlody Castaneda RN - 09/16/2023 3:36 PM EDT Attempted to return call to home care PT Patient is coming back in for surgery in 2 weeks. Does not nee home care at this time. * Telephone Encounter - Melia Adler - 09/16/2023 3:15 PM EDT Call received for Katherine Keith MD regarding Braden Rodriguez. [facility] Patient Identified by Name and : Yes Reason for Call: Devin is calling to notify Dr. Keith that patient has not been seen for PT Devin states patient will not return calls Is there any additional information the provider should know? No, no response needed Last Office Visit: 09/04/2023 Next scheduled appointment: 10/08/2023 Best number to reach caller: Devin [phone] Best time to reach caller: 9 am till 5 pm Is it OK to leave a detailed voice message? Yes Melia Vieyra documented in this encounterMetrohealth [facility]07-09-2024 Telephone encounter Note * Telephone Encounter - Melia Adler - 09/16/2023 3:15 PM EDT Call received for Katherine Keith MD regarding Braden Rodriguez. Caller: Other: Devin with [facility] Patient Identified by Name and : Yes Reason for Call: Devin is calling to notify Dr. Keith that patient has not been seen for PT Devin states patient will not return calls Is there any additional information the provider should know? No, no response needed Last Office Visit: 09/04/2023 Next scheduled appointment: 10/08/2023 Best number to reach caller: Devin [phone] Best time to reach caller: 9 am till 5 pm Is it OK to leave a detailed voice message? Yes Melia Ochoa Enrollment Services Vice President [facility]07-08-2024 Note* Addendum Note - Stephane Fair PA-C - 09/15/2023 1:41 PM EDTAddended by: STEPHANE FAIR on: 09/15/2023 01:41 PM Modules accepted: Orders [facility]07-08-2024 Miscellaneous Notes* Addendum Note - Stephane Fair [...] Fair PA-C Spine Surgery documented in this encounterMetrohealth [facility] Heights [facility] Center07-08-2024 Telephone encounter Note * Telephone Encounter - [...] days. Stephane Fair PA-C Spine Surgery [facility]07-05-2024 Note* Addendum Note - Alfonso Loyd PA-C - 09/12/2023 2:35 PM EDTAddended by: ALFONSO LOYD on: 09/12/2023 02:35 PM Modules accepted: Orders [facility]07-05-2024 Miscellaneous Notes* Addendum Note - Alfonso Loyd PA-C - 09/12/2023 2:35 PM EDTAddended by: ALFONSO LOYD on: 09/12/2023 02:35 PM Modules accepted: Orders documented in this encounterMetrohealth [facility]07-03-2024 [facility]20[facility] NoteW[facility]07-03-2024 NoteW[facility]07-02-2024 NoteW[facility]07-02-2024 Note [facility]07-02-2024 NoteW[facility]07-01-2024 NoteW[facility]07-01-2024 [facility] 09-05-2023 Telephone encounter Note* Telephone Encounter - Emelia Haider RN - 09/05/2023 3:41 PM EDT Script was sent on 09/03. [facility]06-28-20[facility] Miscellaneous Notes* Telephone Encounter - Emelia Haider RN - 09/05/2023 3:41 PM EDT Script was sent on 09/03. documented in this encounterMetrohealth [facility]06-27-2024 Telephone encounter Note * Telephone Encounter - Winnie Quesada - 09/04/2023 12:49 PM EDT Pt has an order that is from [facility]. For Home Health Care. Marianne from [facility] called and said pt was refusing Home Health. I did as her to call the orderingPA, she wanted it noted in his chart here, as well [facility]06-27-2024 Miscellaneous Notes* Telephone Encounter - Winnie Quesada - 09/04/2023 12:49 PM EDT Pt has an order that is from [facility]. For Home Health Care. Marianne from [facility] called and said pt was refusing Home Health. I did as her to call the orderingPA, she wanted it noted in his chart here, as well documented in this encounterMetrohealth [facility] Center06-25-2024 Telephone encounter Note * Telephone Encounter - Tara Sarabia - 09/02/2023 3:31 PM EDT Patient phones requesting refills as follows: Requested Prescriptions Pending Prescriptions Disp Refills oxyCODONE IR (ROXICODONE) 5 mg immediate release tablet 42 tablet 0 Sig: Take 1 tablet by mouth every 4 hours for 7 days. Last visit: 08/29/2023 Pharmacy: [id number] Current Dosage: Patient is currently taking 1 tab every 4 hrs; Has enough for several days left. Please review and advise; ph: [phone] Tara Mix [facility]06-25-2024 Miscellaneous Notes* Telephone Encounter - Tara Sarabia [...] days left. Please review and advise; ph: [phone] Tara Dawkins documented in this encounterMetrohealth [facility] Heights [facility] Center06-24-2024 Telephone encounter Note * Telephone Encounter - [...] with Dr Keith and follow up. [facility]06-24-2024 Miscellaneous Notes* Telephone Encounter - Melody Castaneda [...] Keith and follow up. documented in this encounterMetrohealth [facility] Center06-21-2024 Telephone encounter Note * Telephone Encounter - Melody Castaneda RN - 08/29/2023 10:29 AM EDT Returned call to pharmacy. Advised Vikas Loyd did speak to patient regarding stopping the Birmingham and taking Oxy. Also getting his pain medication through us during this post op time period. He voiced appreciation. No further questions. [facility]06-21-2024 Miscellaneous Notes* Telephone Encounter - Melody Castaneda RN - 08/29/2023 10:29 AM EDT Returned call to pharmacy. Advised Vikas Loyd did speak to patient regarding stopping the Birmingham and taking Oxy. Also getting his pain medication through us during this post op time period. He voiced appreciation. No further questions. * Telephone Encounter - Winnie Quesada - 08/29/2023 9:26 AM EDT Call received for Katherine Keith MD regarding Braden Rodriguez. Caller: Sandeep, Pharmacist [facility] Patient Identified by Name and : [...] appointment: 10/08/2023 Best number to reach caller: [phone] Best time to reach caller: any Is it OK to leave a detailed voice message? Yes Winnie Quesada documented in this encounterMetrohealth [facility] Center06-21-2024 Telephone encounter Note * Telephone Encounter - Winnie Quesada - 08/29/2023 9:26 AM EDT Call received for Katherine Keith MD regarding Braden Rodriguez. Caller: Sandeep, Pharmacist [facility] Patient Identified by Name and : [...] appointment: 10/08/2023 Best number to reach caller: [phone] Best time to reach caller: any Is it OK to leave a detailed voice message? Yes Winnie Quesada [facility]06-21-2024 [facility]06-21-2024 History of Present illness Narrative* Alfonso Loyd PA-C - 08/29/2023 8:20 AM EDT SPINE SURGERY FOLLOW UP This is a virtual visit using [employer] Video Visit. It required patient- provider interaction for the medical decision making as documented below. I have communicated my name and active licensure. The patient's identity and physical location wereverified at the time of this visit. 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 Using Birmingham from his PCP which is not as [...] His PCP filled his lat prescription for Birmingham which is not providing relief. We discussed [...] TIME: 8:20 AM PAGER: documented in this encounterMetrohealth [facility] Center06-14-2024 NoteW[facility]06-13-2024 NoteW[facility]06-13-2024 NoteW[facility]06-12-2024 NoteW[facility]06-12-2024 Note [facility]06-12-2024 NoteW[facility]06-12-2024 NoteW[facility]06-11-2024 NoteW[facility] 08-19-2023 NoteW[facility]06-11-2024 NoteW[facility]06-03-2024 Telephone encounter Note* Telephone Encounter - Judi Mclean LSW - 08/11/2023 12:57 PM EDT CM was able to leave a brief detailed message on identifed vm requesting call back to discuss post op care. CM provided contact information. [facility]06-03-2024 Miscellaneous Notes* Telephone Encounter - Judi Mclean LSW - 08/11/2023 12:57 PM EDT CM was able to leave a brief detailed message on identifed vm requesting call back to discuss post op care. CM provided contact information. documented in this encounterMetrohealth [facility] Center06-02-2024 NoteW[facility]06-02-2024 History of Present illness Narrative* Olesya Veras RN - 08/10/2023 10:56 AM EDT Patient referred to Blood Management for pre-surgical optimization. Hgb 15.1 which exceeds Blood Management guidelines for intervention. documented in this encounterMetrohealth Cleveland Heights [facility] Center05-29-2024 History and physical note * Sanam Gill [...] Score = 3 REASON FOR VISIT: Braden oRdriguez is a 68 year old year old [...] over the last year. Relieving factors include Birmingham and steroids. Aggravating factors include repetitive movement. [...] fevers. Neuro: No history of TIA's, stroke, CONTROL SYSTEM COMPUTER SCIENTIST tumor, impaired sensorium, hemiplegia, paraplegia or quadraplegia. No neurological symptoms or problems. Respiratory: No history of current cough or dyspnea, or pneumonia in the past 6 weeks. No history of respiratory/pulmonary symptoms or problems. Cardiovascular:+htn, SVT Negative for Recent [place], Angina, CAD, Chest Pain GI: No history [...] Specific Question: Does consulting provider have [facility] access? Answer: Yes Type and Screen, [...] Rodriguez DATE: 08/06/2023 TIME: 10:18 AM [facility]05-29-2024 History and physical note* Sanam Gill PA-C [...] over the last year. Relieving factors include Birmingham and steroids. Aggravating factors include repetitive movement. [...] fevers. Neuro: No history of TIA's, stroke, CONTROL SYSTEM COMPUTER SCIENTIST tumor, impaired sensorium, hemiplegia, paraplegia or quadraplegia. No neurological symptoms or problems. Respiratory: No history of current cough or dyspnea, or pneumonia in the past 6 weeks. No history of respiratory/pulmonary symptoms or problems. Cardiovascular:+htn, SVT Negative for Recent [place], Angina, CAD, Chest Pain GI: No history [...] 08/06/2023 TIME: 10:18 AM documented in this encounterMetrohealth [facility] Center05-24-2024 Telephone encounter Note * Telephone Encounter - Tara Sarabia - 08/01/2023 11:03 AM EDT Duplicate, patient already spoke to RN (see phone encounter). [facility]05-24-2024 Miscellaneous Notes* Telephone Encounter - Tara Sarabia - 08/01/2023 11:03 AM EDT Duplicate, patient already spoke to RN (see phone encounter). documented in this encounterMetrohealth [facility] Center05-24-2024 Telephone encounter Note * Telephone Encounter - Melody aCstaneda RN - 08/01/2023 10:51 AM EDT Patient accepts sooner date of 08/18 New education class on 08/11 at 2 PM Will change post ops He voiced appreciation. No further questions. [facility]05-24-2024 Miscellaneous Notes* Telephone Encounter - Melody Castaneda RN - 08/01/2023 10:51 AM EDT Patient accepts sooner date of 08/18 New education class on 08/11 at 2 PM Will change post ops He voiced appreciation. No further questions. * Telephone Encounter - Melia Adler - 08/01/2023 9:41 AM EDT Patient is returning nurse call pertaining to below message, sooner appt call back [phone] * Telephone Encounter - Melody Castaneda RN - 08/01/2023 9:01 AM EDT Called patient to offer sooner surgery date Left message to return call to the office documented in this encounterMetrohealth [facility] Center05-24-2024 Telephone encounter Note * Telephone Encounter - Melia Adler - 08/01/2023 9:41 AM EDT Patient is returning nurse call pertaining to below message, sooner appt call back [phone] [facility]05-24-2024 Instructions* Patient Instructions* Sanam Gill PA-C - 08/01/2023 9:35 AM EDT PATIENT PREOPERATIVE INSTRUCTIONS Katherine Keith MD has scheduled you for your procedure at this surgery center: [facility] [place] Scheduling Office: [phone] --[address] [place] [id number]. Please read below carefully for your personalized instructions. Arrival Time for Surgery: - To obtain your arrival time for surgery, call your physician's office the day before your surgery. - If your surgery is scheduled for Friday, call the Friday before. Your surgeon s spares scheduler will tell you what time to call the office. - If you have not reached the departmental spares scheduler by 5 P.M., call [phone] after 5 P.M. the day before your [...] Advance Directive, please fax a copy to [phone] or email to for it to be [...] day. Sanam Gill PA-C documented in this encounterMetrohealth [facility] Center05-24-2024 Telephone encounter Note * Telephone Encounter - Melody Castaneda RN - 08/01/2023 9:01 AM EDT Called patient to offer sooner surgery date Left message to return call to the office [facility]05-06-2024 Telephone encounter Note* Telephone Encounter - Garcia Lomax LPN - 07/14/2023 12:11 PM EDT Received, Reviewed Jamey Disability Attending Physician Statement [employer] forms and need signed by Dr. Keith Sent to Dr. Keith via Docusign for signature Leave dates: 09/02/23-11/07/23 No Post op appt scheduled as of yet. Garcia Maldonado LPN [facility]05-06-2024 Miscellaneous Notes* Telephone Encounter - Garcia Lomax LPN - 07/14/2023 12:11 PM EDT Received, Reviewed Jamey Disability Attending Physician Statement [employer] forms and need signed by Dr. Keith Sent to Dr. Keith via Docusign for signature Leave dates: 09/02/23-11/07/23 No Post op appt scheduled as of yet. Garcia Maldonado LPN documented in this encounterMetrohealth [facility] Center04-04-2024 Miscellaneous Notes* Telephone Encounter - Melody Castaneda [...] continue with disability until surgery. Patient states [employer] only needs office note. This office [...] PM EDT Received Attending Physician's Statement from [facility]. Sent via [employer] for processing. documented in this encounterMetrohealth Cleveland Heights [facility] Center03-21-2024 Miscellaneous Notes* Telephone Encounter - Melody Castaneda [...] Dr. Katherine Keith:04/30 Please schedule PAT for [place] the week of 08/04. Please schedule pre [...] Lumbar N/A TREK/ N/A documented in this encounterMetrohealth Cleveland Heights Medical Center02-25-2024 History of Present illness Narrative* Blanca Price, [...] PATIENT PRESENTS WITH AN IMPLANTABLE OR ATTACHED BRAID PATTERN SETTER: No RADIOLOGY DEPARTMENT: CT; Exam(s) Completed: Spine PERIPHERAL IV DATA: Not applicable SIGNED BY: MARY Gomes) May 04, 2023 8:09 AM documented in this encounterMetrohealth Cleveland Heights [facility] Center02-25-2024 NoteHNO ID: [id number] Author: BLANCA PRICE RT(R) Service: Radiology Author [...] PATIENT PRESENTS WITH AN IMPLANTABLE OR ATTACHED BRAID PATTERN SETTER: No RADIOLOGY DEPARTMENT: CT; Exam(s) Completed: Spine PERIPHERAL IV DATA: Not applicable SIGNED BY: RT Eliseo(Michael) May 04, 2023 8:09 AMIntermountain [id number] History of Present illness Narrative* Douglas Menchaca [...] PATIENT PRESENTS WITH AN IMPLANTABLE OR ATTACHED BRAID PATTERN SETTER: No RADIOLOGY DEPARTMENT: General X-ray: Exam(s) Completed: Spine X-Ray(s): Scoliosis Series PERIPHERAL IV DATA: Not applicable SIGNED BY: RT Jimbo(R) April 30, 2023 1:42 PM documented in this encounterMetrohealth [facility] Center02-21-2024 History of Present illness Narrative* Katherine Keith [...] Ester Cain MD REFERRING PROVIDER: Tello Angeles [id number] [facility] [place] [id number] Consult requested for an opinion regarding the [...] lumbar radiculopathy, all done at outside facilities. [id number] he had a single level decompression which [...] TIME: 11:51 AM PAGER: documented in this encounterMetrohealth Cleveland Heights Medical Center02-21-2024 History of Present illness Narrative* Viry Celaya [...] PATIENT PRESENTS WITH AN IMPLANTABLE OR ATTACHED BRAID PATTERN SETTER: No RADIOLOGY DEPARTMENT: General X-ray: Exam(s) Completed: Spine X-Ray(s): Lumbar AP / LAT / L5-S1 / FLEX-EXT PERIPHERAL IV DATA: Not applicable SIGNED BY: RT Guillermo(Michael) April 30, 2023 10:47 AM documented in this encounterMetrohealth [facility] Center01-12-2024 History of Present illness Narrative* Alfonso Loyd PA-C - 03/21/2023 5:54 AM EST Requesting to see Dr. Keith Left leg pain, trouble walking, numbness in the leg, weakness. He has tried: PT, NSAID, steroids, MR, Tramadol Previous surgery x 3 at [facility] Lumbar MRI report with severe central stenosis of L3-4 and L4-5. XR ordered for an appointment withDr. Keith. * Gabbi Fox N - 03/19/2023 10:11 AM EST Patient name: Braden Rodriguez Are you being referred by a Center for Spine Health Provider or Pain Management Provider at [facility]? No If answer is YES please schedule directly with surgeon, triage does not need to be completed. Is this a self-referral No If not, who is the Referring Provider Dr. Tello Angeels Is this a 2nd opinion from another spine surgeon? Yes Were you offered surgery? No MRI/CT/myelogram within 12 months? Yes If NO , please refer to medical spine or PCP to complete above imaging, triage does not need to be completed If YES, please ask for the name/address of the facility where the MRI/CT/myelogram was completed: [facility] [place] [address] [place] [address] MRI/CT/myelogram viewable in Epic: No If not, please provide [phone] to fax in imaging reports for review. Also, please inform patient to hand carry imaging disc to appointment. XR (spine) within 12 months: Yes If YES, please ask for the name/address of the facility where the XR was completed: Dr. Tello Angeles MD [address], [place] [address] Dr. Davis's patients: Have you had previous [...] Starting PT 03/20/2023 for drop foot [facility] [address] [place] [address] Have you tried any other kinds of [...] where the surgery was completed: 1999 laminectomy [facility] 2012 lumbar surgery [facility] 2018 [facility] Additional Comments [phone] documented in this encounterMetrohealth Cleveland Heights [facility] Center09-28-2023 Hospital Discharge instructions Patient Education 12/05/2022 12:42:33 [...] treatment? Where to find more information [employer]: www.cancer.org [employer] [employer]: www.auanet.org Contact a health care [...] provider. Document Revised: 08/20/2021 Document Reviewed: 08/20/2021 Personalis Patient Education 2022 [employer]. Follow Up Care 11/27/2022 14:43:00 With:Kahlil JERNIGAN, MARLENA Salmon, URO Address: When: Unknown [facility] 08-23-2023 Hospital Discharge instructions Patient Education [...] treatment? Where to find more information [employer] [place] [employer]: www.cancer.org [employer] [employer]: www.auanet.org Contact a health care [...] provider. Document Revised: 08/20/2021 Document Reviewed: 08/20/2021 Personalis Patient Education 2022 [employer]. Follow Up Care 09/04/2022 08:48:35 With:Kahlil JERNIGAN, Shae Powell URL, URO Address: When:Within 2 Month(s) Comments:w/PSA [facility] 06-28-2023 Hospital Discharge instructions Patient Education [...] treatment? Where to find more information [employer] [place] [employer]: www.cancer.org [employer] [employer]: www.auanet.org Contact a health care [...] provider. Document Revised: 08/20/2021 Document Reviewed: 08/20/2021 Personalis Patient Education 2022 [employer]. Follow Up Care 08/26/2022 10:02:45 With:Kahlil JERNIGAN, MARLENA Salmon, NELLY Address: When:Within 4 Week(s) Comments:w/ PSA [facility] 02-28-2023 Hospital Discharge instructions Follow Up Care 05/07/2022 15:08:01 With:Camryn AGUSTIN MD, SUR Address: [address] [place] [id number]- When: only if needed General Surgery [place] Evaluation + Plan note No data available for this section General Surgery [place] Evaluation + Plan note Future Appointments Appointment Date:05/21/2022 02:40:00 PM Scheduled Provider:Camryn AGUSTIN MD Location:[facility] Appointment Type:GS Post Op 15 General Surgery [place] Evaluation + Plan note Future Appointments Appointment Date:09/24/2022 01:40:00 PM Scheduled Provider:Camryn AGUSTIN MD Location:[facility] Appointment Type:[facility] 15 Appointment Date:09/25/2022 08:45:00 AM Scheduled Provider:Shae Guillory MD Location:[facility] Appointment Type:URO Office Visit Diagnostic Tests Pending * PSA Total 09/04/22 * PSA Free & Total 09/04/[address] [facility] evaluation + Plan note Future Appointments Appointment Date:01/08/2023 09:00:00 AM Scheduled Provider:Shae Guillory MD Location:[facility] Appointment Type:URO Office Visit Diagnostic Tests Pending * PSA Free & Total 10/30/22 [facility] evaluation + Plan note Future Appointments Appointment Date:04/23/2023 09:45:00 AM Scheduled Provider:Shae Guillory MD Location:[facility] Appointment Type:URO Office Visit Diagnostic Tests Pending * PSA Free & Total 12/05/22 [facility] evaluation noteNo assessment information available [facility] Work Phone: evaluation note* Diagnosis Spinal [...] Preoperative examination, unspecified [facility] Pre-op exam- Primary Preoperative examination, unspecified Primary hypertension Unspecified essential hypertension SVT (supraventricular tachycardia) (HCC) Other specified cardiac dysrhythmias History of penicillin allergy Personal history of allergy to penicillin History of laminectomy Other postprocedural status Degenerative scoliosis in adult patient Pre-op testing Preoperative examination, unspecified [facility] Acute post-operative pain [facility] Diagnosis Acute post-operative pain [facility] Diagnosis Acute post-operative pain [facility] Diagnosis S/P lumbar fusion- Primary Arthrodesis status [facility] Diagnosis S/P lumbar spinal fusion- Primary Arthrodesis status Pre-op testing Preoperative examination, unspecified S/P lumbar spinal fusion Arthrodesis status [facility] Diagnosis S/P lumbar fusion Arthrodesis status S/P lumbar spinal fusion Arthrodesis status [facility] Diagnosis S/P lumbar spinal fusion- Primary Arthrodesis status S/P lumbar spinal fusion Arthrodesis status [facility] Diagnosis Post-op pain- Primary Other acute postoperative pain [facility] Diagnosis Post-op pain Other acute postoperative pain [facility] Diagnosis Right leg weakness- Primary [...] postoperative pain [facility] Diagnosis Acute post-operative pain [...] adult patient [facility] Diagnosis Acute post-operative pain SVT (supraventricular [...] sciatica present [facility] Diagnosis Acute post-operative pain SVT (supraventricular tachycardia) ([facility]) Other specified cardiac dysrhythmias Acute post-operative pain [...] to limbs [facility] Diagnosis Acute post-operative pain SVT (supraventricular tachycardia) ([facility]) Other specified cardiac dysrhythmias Acute post-operative pain [...] of treatment, sequela [facility] Diagnosis Acute post-operative pain SVT (supraventricular [...] treatment, sequela [facility] Diagnosis Acute post-operative pain [...] whether sciatica present [facility] Diagnosis Acute post-operative pain SVT (supraventricular [...] and fatigue [facility] Diagnosis Acute post-operative pain [...] cervical region [facility] Diagnosis Acute post-operative pain [...] cervical region [facility] Diagnosis Acute post-operative pain [...] cervical region [facility] Diagnosis Acute post-operative pain [...] cervical region [facility] Diagnosis Acute post-operative pain [...] cervical region [facility] Diagnosis Acute post-operative pain [...] cervical region [facility] Diagnosis Acute post-operative pain [...] cervical region [facility] Diagnosis Acute post-operative pain [...] blood chemistry [facility] Diagnosis Acute post-operative pain [...] of sutures [facility] Diagnosis Acute post-operative pain [...] Arthrodesis status [facility] Diagnosis Idiopathic peripheral neuropathy- Primary Unspecified hereditary and idiopathic peripheral neuropathy Neurogenic ulcer, 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) PAD (peripheral artery disease) Unspecified peripheral vascular disease Absent pulse Other symptoms involving cardiovascular system Foot drop, bilateral Other acquired deformity of ankle and foot [facility] Foot drop, bilateral- Primary Other acquired deformity of ankle and foot Neurogenic ulcer, 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 No data available for this section General Surgery [place] Progress note No data available for this section General Surgery [place] Reason for referral (narrative)* Diagnostic Procedure Only (Routine) - Pending ReviewSpecialtyDiagnoses / ProceduresReferred By ContactReferred To ContactXR IMAGING Diagnoses Spinal stenosis, lumbar region with neurogenic claudication Procedures XR LUMBAR MOTION 4V AP/LAT/ FLEX/EXT RADEX SPINE LUMBOSACRAL MINIMUM 4 VIEWS Alfonso Loyd PA-C [address] [place] [id number] Xr Imaging [place] [address] Referral IDStatusReasonOw[place] DateExpiration DateVisits RequestedVisits [id number] Review Auto-Generated Referral [facility] for referral (narrative)* Diagnostic Procedure Only (Routine) - ClosedSpecialtyDiagnoses / ProceduresReferred By ContactReferred To ContactXR IMAGING Diagnoses History of lumbar laminectomy for spinal cord decompression Degenerative scoliosis in adult patient Chronic low back pain, unspecified back pain laterality, unspecified whether sciatica present Procedures XR SCOLIOSIS PA STAND/LAT 2V RADEX ENTIR THRC LMBR CRV SAC SPI W/SKULL 2/3 VW Katherine Keith MD [address] [place] [address] Xr Imaging [place] [address] Referral IDStatusReasonOw[place] DateExpiration DateVisits RequestedVisits [id number] Auto-Generated Referral [facility] for referral (narrative)* Diagnostic Procedure Only (Routine) - ClosedSpecialtyDiagnoses / ProceduresReferred By ContactReferred To ContactXR IMAGING Diagnoses Spinal stenosis, lumbar region with neurogenic claudication Procedures XR LUMBAR MOTION 4V AP/LAT/ FLEX/EXT RADEX SPINE LUMBOSACRAL MINIMUM 4 VIEWS Alfonso Loyd PA-C [address] [place] [phone] Xr Imaging [facility]95 Referral IDStatusReasonStart DateExpiration DateVisits RequestedVisits [id number] Auto-Generated Referral [facility] for referral (narrative)* Outpatient Procedure (Routine) - Pending ReviewSpecialtyDiagnoses / ProceduresReferred By ContactReferred To [facility] Diagnoses Pre-op exam Procedures ECG COMPLETE ECG ROUTINE ECG W/LEAST 12 LDS W/I&R Sanam Gill PA-C [address] [place] [address] [facility] [place] [address] [place] [address] Ref[facility]Stat[facility] DateExpiration DateVisits RequestedVisits [id number] Review Auto-Generated Referral [facility] for referral (narrative)* Diagnostic Procedure Only (Routine) - ClosedSpecialtyDiagnoses / ProceduresReferred By ContactReferred To ContactXR IMAGING Diagnoses History of laminectomy Degenerative scoliosis in adult patient Procedures XR LUMBAR LIMITED 2V AP/LAT RADEX SPINE LUMBOSACRAL 2/3 VIEWS Alfonso Loyd PA-C [address] [place] [address] Xr Imaging [facility]95 Referral IDStacrownpoint health care facilityJesusOwensville DateExpiration DateVisits RequestedVisits [id number] Auto-Generated Referral T [facility] for referral (narrative)* Outpatient Procedure (Routine) - Pending ReviewSpecialtyDiagnoses / ProceduresReferred By ContactReferred To [facility] Diagnoses Adverse effect of treatment, sequela Procedures EMG(NEURO/NI) NERVE CONDUCTION STUDIES 9-10 STUDIES Katherine Keith MD [address] [place] [address] [facility] [place] [address] [place] [phone] Referral IDStatusReasonStart DateExpiration DateVisits RequestedVisits [id number] Review Auto-Generated Referral * MRI/CT (Routine) - AuthorizedSpecialtyDiagnoses / ProceduresReferred By ContactReferred To ContactCT IMAGING Diagnoses Acute low back pain, unspecified back pain laterality, unspecified whether sciatica present Procedures CT LUMBAR SPINE WO IVCON CT LUMBAR SPINE W/O CONTRAST MATERIAL Katherine Keith MD [address] [place] [address] Ct Imaging [place] [address] Referral IDStatusReasonStart DateExpiration DateVisits RequestedVisits [id number] Auto-Generated Referral * MRI/CT (Routine) - AuthorizedSpecialtyDiagnoses / ProceduresReferred By ContactReferred To ContactMR IMAGING Diagnoses Adverse effect of treatment, sequela Procedures MRI LUMBAR SPINE WO IVCON MRI SPINAL CANAL LUMBAR W/O CONTRAST MATERIAL Katherine Keith MD [address] [place] [address] Mr Imaging [place] [address] Referral IDStatusReasonStart DateExpiration DateVisits RequestedVisits [id number] Auto-Generated Referral * MRI/CT (Routine) - AuthorizedSpecialtyDiagnoses / ProceduresReferred By ContactReferred To ContactMR IMAGING Diagnoses Adverse effect of treatment, sequela Procedures MRI THORACIC SPINE WO IVCON MRI SPINAL CANAL THORACIC W/O CONTRAST MATRL Katherine Keith MD [address] [place] [address] Mr Imaging [place] [address] Referral IDStatusReasonStart DateExpiration DateVisits RequestedVisits [id number] Auto-Generated Referral [facility] for referral (narrative)* Diagnostic Procedure Only (Routine) - ClosedSpecialtyDiagnoses / ProceduresReferred By ContactReferred To ContactMR IMAGING Diagnoses Spinal stenosis of cervical region Procedures MRI CERVICAL SPINE WO IVCON MRI SPINAL CANAL CERVICAL W/O CONTRAST MATRL Alfonso Loyd PA-C [address] [place] [address] Mr Imaging [place] [address] Referral IDStatusReasonStlittle falls DateExpiration DateVisits RequestedVisits [id number] Auto-Generated Referral / [facility] for referral (narrative)No reason for referral information availableM[facility]field [facility] Work Phone: [facility] Narrative* MRI/CT (Routine) - Closed SpecialtyDiagnoses / ProceduresReferred By ContactReferred To ContactCT IMAGING Diagnoses Spinal stenosis of cervical region Procedures CT CERVICAL SPINE WO IVCON CT CERVICAL SPINE W/O CONTRAST MATERIAL Katherine Keith MD [address] [place] [address] Phone: tel: fax: CT IMAGING [place] [address] Referral IDStatusReasonStlittle falls DateExpiration DateVisits RequestedVisits [id number] Auto-Generated Referral / [facility] Summary Purpose Family History No [...] CERVICAL W/O CONTRAST MATRL Alfonso Loyd PA-C [address] [place] [address] Mr Imaging [place] [address] Referral IDStatusReason[place] DateExpiration DateVisits RequestedVisits [id number] Request Auto-Generated Referral [id number] / ProceduresReferred By ContactReferred To ContactCT IMAGING Diagnoses Acute low back pain, unspecified back pain laterality, unspecified whether sciatica present Procedures CT LUMBAR SPINE WO IVCON CT LUMBAR SPINE W/O CONTRAST MATERIAL Katherine Keith MD [address] [place] [address] Ct Imaging [place] [address] Referral IDStatusReasonStart DateExpiration DateVisits RequestedVisits [id number] Auto-Generated Referral [id number] / ProceduresReferred By ContactReferred To ContactMR IMAGING Diagnoses Adverse effect of treatment, sequela Procedures MRI LUMBAR SPINE WO IVCON MRI SPINAL CANAL LUMBAR W/O CONTRAST MATERIAL Katherine Keith MD [address] [place] [address] Mr Imaging [place] [address] Referral IDStatusGabrielaasonStlittle falls DateExpiration DateVisits RequestedVisits [id number] Auto-Generated Referral [id number] / ProceduresReferred By ContactReferred To ContactREHAB AND SPORTS THERAPY INS Diagnoses Right leg weakness S/P lumbar fusion Procedures CONSULT TO PHYSICAL THERAPY PH[facility]ICAL THERAPY [facility] 45 MINS Alfonso Loyd PA-C [address] [place] [address] [facility] [place] [address] [place] [address] Referral IDStatusJesusStlittle falls DateExpiration DateVisits RequestedVisits [id number] Review Auto-Generated Referral /[id number] / ProceduresReferred By ContactReferred To Contact Diagnoses History of laminectomy Degenerative scoliosis in adult patient Pre-op testing Procedures REFER TO [facility] - PRE ANESTHESIA CONSULTATION CLINIC OFFICE/OUTPATIENT [facility] 60 MINUTES Alfonso Loyd PA-C [address] [place] [address] Referral IDStatusGabrielaasonStlittle falls DateExpiration DateVisits RequestedVisits [id number] PCP Requested Referral /[id number] / ProceduresReferred By ContactReferred To ContactXR IMAGING Diagnoses History of laminectomy Degenerative scoliosis in adult patient Procedures XR LUMBAR LIMITED 2V AP/LAT RADEX SPINE LUMBOSACRAL 2/3 VIEWS Alfonso Loyd PA-C [address] [place] [address] Xr Imaging [place] [address] Referral IDStatusReasonStart DateExpiration DateVisits RequestedVisits [id number] Review Auto-Generated Referral /[id number] / ProceduresReferred By ContactReferred To ContactNEUROLOGICAL INSTITUTE Diagnoses History of lumbar laminectomy for spinal cord decompression Degenerative scoliosis in adult patient Chronic low back pain, unspecified back pain laterality, unspecified whether sciatica present Procedures EMG(NEURO/NI) NERVE CONDUCTION STUDIES 9-10 STUDIES Katherine Keith MD [address] [place] [address] [facility] [place] [address] [place] [address] Referral IDStatusReasonStart DateExpiration DateVisits RequestedVisits [id number] Auto-Generated Referral /[id number] / ProceduresReferred By ContactReferred To ContactCT IMAGING Diagnoses Chronic low back pain, unspecified back pain laterality, unspecified whether sciatica present Procedures CT LUMBAR SPINE WO IVCON CT LUMBAR SPINE W/O CONTRAST MATERIAL Katherine Keith MD [facility] [place] [address] Ct Imaging [place] [address] Referral IDStatusReasonStlittle falls DateExpiration DateVisits RequestedVisits [id number] Auto-Generated Referral /[id number] / ProceduresReferred By ContactReferred To ContactXR IMAGING Diagnoses History of lumbar laminectomy for spinal cord decompression Degenerative scoliosis in adult patient Chronic low back pain, unspecified back pain laterality, unspecified whether sciatica present Procedures XR SCOLIOSIS PA STAND/LAT 2V RADEX ENTIR THRC LMBR CRV SAC SPI W/SKULL 2/3 VW Katherine Keith MD [address] [place] [address] Xr Imaging [place] [address] Referral IDStatusReasonStart DateExpiration DateVisits RequestedVisits [id number] Auto-Generated Referral [id number] / ProceduresReferred By ContactReferred To ContactCT IMAGING Diagnoses Chronic low back pain, unspecified back pain laterality, unspecified whether sciatica present Procedures CT LUMBAR SPINE WO IVCON CT LUMBAR SPINE W/O CONTRAST MATERIAL Katherine Keith MD [address] [place] [address] Ct Imaging [place] [address] Referral IDStatusReasonStart DateExpiration DateVisits RequestedVisits [id number] Auto-Generated Referral Additional Source Comments (unrecognized sect ion and content) No Status Records FoundNo Status Records FoundNo Status Records FoundNo Status Records FoundNo Status Records FoundNo Status Records FoundNo Status Records FoundNo Status Records FoundNo Status Records FoundNo Status Records FoundNo Status Records Found INFORMATION SOURCE (unrecogn ized section and content) DATE CREATED AUTHOR 05/16/2020 [facility] DATE CREATED AUTHOR AUTHOR'S ORGANIZ ATION 09/06/2020 [facility] DATE CREATED AUTHOR AUTHOR'S ORGANIZ ATION 05/18/2022 [facility] DATE CREATED AUTHOR AUTHOR'S ORGANIZ ATION 06/13/2022 [facility] DATE CREATED AUTHOR AUTHOR'S ORGANIZ ATION 08/18/2023 [facility] DATE CREATED AUTHOR AUTHOR'S ORGANIZ ATION 05/16/2024 [facility] DATE CREATED AUTHOR AUTHOR'S ORGANIZ ATION 07/17/2024 [facility] DATE CREATED AUTHOR AUTHOR'S ORGANIZ ATION 10/02/2024 [facility] DATE CREATED AUTHOR AUTHOR'S ORGANIZ ATION 12/28/2024 [facility] DATE CREATED AUTHOR AUTHOR'S ORGANIZ ATION 01/08/2025 [facility] DATE CREATED AUTHOR AUTHOR'S ORGANIZ ATION 01/16/2025 [facility] EPIC Patient Care team informatio n (unrecognized section and content) Team Status: Active Member Role Status Dates Ester Cain MD Primary Care Provider Active Team Status: Inactive Member Role Status Dates Ester Cain MD Primary Care Provider Active Shae M Lue , [facility]Te MemberRelationshipSpecialtyStart DateEnd Date Ester Cain MD [facility]05/05/06Te MemberRelationshipSpecialtyStart DateEnd Date Ester Cain MD PCP - General05/05/06Te MemberRelationshipSpecialtyStart DateEnd Date Ester Cain MD PCP [facility]05/05/06Te MemberRelationshipSpecialtyStart DateEnd Date Ester Cain MD PCP General05/05/06Te MemberRelationshipSpecialtyStart DateEnd Date Ester Cain MD PCP - General05/05/06Te MemberRelationshipSpecialtyStart DateEnd Date Ester Cain MD PCP General05/05/06Te MemberRelationshipSpecialtyStart DateEnd Date Ester Cain MD PCP - General05/05/06Team MemberRelationshipSpecialtyStart DateEnd Date Ester Cain MD PCP - General05/05/06Team MemberRelationshipSpecialtyStart DateEnd Date Ester Cain MD PCP - General05/05/06Te MemberRelationshipSpecialtyStart DateEnd Date Esetr Cain MD [facility]05/05/06Te MemberRelationshipSpecialtyStart DateEnd Date Ester Cain MD [facility]05/05/06Te MemberRelationshipSpecialtyStart DateEnd Date Ester Cain MD [facility]05/05/06Te MemberRelationshipSpecialtyStart DateEnd Date Ester Cain MD [facility]05/05/06Te MemberRelationshipSpecialtyStart DateEnd Date Ester Cain MD [facility]05/05/06Te MemberRelationshipSpecialtyStart DateEnd Date Ester Cain MD [facility]05/05/06Te MemberRelationshipSpecialtyStart DateEnd Date Ester Cain MD PCP - [facility]05/05/06Te MemberRelationshipSpecialtyStart DateEnd Date Ester Cain MD PCP - [facility]05/05/06Te MemberRelationshipSpecialtyStart DateEnd Date Ester Cain MD PCP - [place] [id number] MemberRelationshipSpecialtyStart DateEnd Date Ester Cain MD PCP [...] DateEnd Date Ester Cain MD [address] [place] [address] [facility] Team Status: Inactive Member Role Status Dates Ester Cain MD Primary Care Provider Active Start: September 27, 2024 End: September 27, 2024Eugene Rosaura Gray , DPMAttending ProviderActiveStart: September 27, 2024 End: September 27, 2024 Team Status: Inactive Member Role Status Dates Ester Cain MD Primary Care Provider Active Start: October 06, 2024 End: October 06, 2024Citlali Black NURSE LEADER-CAttending ProviderActiveStart: October 06, 2024 End: October 06, 2024Team MemberRelationshipSpecialtyStart DateEnd Date Ester Cain MD [address] [place] [facility] [place] [address] P[facility] - [facility]09/08/24Team MemberRelationshipSpecialtyStart DateEnd Date Ester Cain MD [address] [place] [facility] [place] [address] PCP - [facility]09/08/24Team MemberRelationshipSpecialtyStart DateEnd Date Ester Cain MD [address] [place] [facility] [place] [address] PCP - [facility]09/08/24Team MemberRelationshipSpecialtyStart DateEnd Date Ester Cain MD [address] [place] [facility] [place] [address] PCP - [facility]09/08/24 Goals (unrecognized section and content) Goals may be documented in a n alternate section Source Comments (unrecognize d section and content) In the event this informatio n is protected by the Federal Confidentiality of Alcohol and Drug Abuse Patient Records regulations: The Federal rules restrict any use of the information to criminally investigate or prosecute any alcohol or drug abuse patient.[facility] CenterIn the event this information is protected by the Federal Confidentiality of Alcohol and Drug Abuse Patient Records regulations: The Federal rules restrict any use of the information to criminally investigate or prosecute any alcohol or drug abuse patient.[facility] CenterIn the event this information is protected by the Federal Confidentiality of Alcohol and Drug Abuse Patient Records regulations: The Federal rules restrict any use of the information to criminally investigate or prosecute any alcohol or drug abuse patient.[facility] CenterIn the event this information is protected by the Federal Confidentiality of Alcohol and Drug Abuse Patient Records regulations: The Federal rules restrict any use of the information to criminally investigate or prosecute any alcohol or drug abuse patient.[facility] CenterIn the event this information is protected by the Federal Confidentiality of Alcohol and Drug Abuse Patient Records regulations: The Federal rules restrict any use of the information to criminally investigate or prosecute any alcohol or drug abuse patient.[facility] CenterIn the event this information is protected by the Federal Confidentiality of Alcohol and Drug Abuse Patient Records regulations: The Federal rules restrict any use of the information to criminally investigate or prosecute any alcohol or drug abuse patient.[facility] CenterIn the event this information is protected by the Federal Confidentiality of Alcohol and Drug Abuse Patient Records regulations: The Federal rules restrict any use of the information to criminally investigate or prosecute any alcohol or drug abuse patient.[facility] CenterIn the event this information is protected by the Federal Confidentiality of Alcohol and Drug Abuse Patient Records regulations: The Federal rules restrict any use of the information to criminally investigate or prosecute any alcohol or drug abuse patient.[facility] CenterIn the event this information is protected by the Federal Confidentiality of Alcohol and Drug Abuse Patient Records regulations: The Federal rules restrict any use of the information to criminally investigate or prosecute any alcohol or drug abuse patient.[facility] CenterIn the event this information is protected by the Federal Confidentiality of Alcohol and Drug Abuse Patient Records regulations: The Federal rules restrict any use of the information to criminally investigate or prosecute any alcohol or drug abuse patient.[facility] CenterIn the event this information is protected by the Federal Confidentiality of Alcohol and Drug Abuse Patient Records regulations: The Federal rules restrict any use of the information to criminally investigate or prosecute any alcohol or drug abuse patient.[facility] CenterIn the event this information is protected by the Federal Confidentiality of Alcohol and Drug Abuse Patient Records regulations: The Federal rules restrict any use of the information to criminally investigate or prosecute any alcohol or drug abuse patient.[facility] CenterIn the event this information is protected by the Federal Confidentiality of Alcohol and Drug Abuse Patient Records regulations: The Federal rules restrict any use of the information to criminally investigate or prosecute any alcohol or drug abuse patient.[facility] CenterIn the event this information is protected by the Federal Confidentiality of Alcohol and Drug Abuse Patient Records regulations: The Federal rules restrict any use of the information to criminally investigate or prosecute any alcohol or drug abuse patient.[facility] CenterIn the event this information is protected by the Federal Confidentiality of Alcohol and Drug Abuse Patient Records regulations: The Federal rules restrict any use of the information to criminally investigate or prosecute any alcohol or drug abuse patient.[facility] CenterIn the event this information is protected by the Federal Confidentiality of Alcohol and Drug Abuse Patient Records regulations: The Federal rules restrict any use of the information to criminally investigate or prosecute any alcohol or drug abuse patient.[facility] CenterIn the event this information is protected by the Federal Confidentiality of Alcohol and Drug Abuse Patient Records regulations: The Federal rules restrict any use of the information to criminally investigate or prosecute any alcohol or drug abuse patient.[facility] CenterIn the event this information is protected by the Federal Confidentiality of Alcohol and Drug Abuse Patient Records regulations: The Federal rules restrict any use of the information to criminally investigate or prosecute any alcohol or drug abuse patient.[facility] CenterIn the event this information is protected by the Federal Confidentiality of Alcohol and Drug Abuse Patient Records regulations: The Federal rules restrict any use of the information to criminally investigate or prosecute any alcohol or drug abuse patient.[facility] CenterIn the event this information is protected by the Federal Confidentiality of Alcohol and Drug Abuse Patient Records regulations: The Federal rules restrict any use of the information to criminally investigate or prosecute any alcohol or drug abuse patient.[facility] CenterIn the event this information is protected by the Federal Confidentiality of Alcohol and Drug Abuse Patient Records regulations: The Federal rules restrict any use of the information to criminally investigate or prosecute any alcohol or drug abuse patient.[facility] CenterIn the event this information is protected by the Federal Confidentiality of Alcohol and Drug Abuse Patient Records regulations: The Federal rules restrict any use of the information to criminally investigate or prosecute any alcohol or drug abuse patient.[facility] CenterIn the event this information is protected by the Federal Confidentiality of Alcohol and Drug Abuse Patient Records regulations: The Federal rules restrict any use of the information to criminally investigate or prosecute any alcohol or drug abuse patient.[facility] CenterIn the event this information is protected by the Federal Confidentiality of Alcohol and Drug Abuse Patient Records regulations: The Federal rules restrict any use of the information to criminally investigate or prosecute any alcohol or drug abuse patient.[facility] CenterIn the event this information is protected by the Federal Confidentiality of Alcohol and Drug Abuse Patient Records regulations: The Federal rules restrict any use of the information to criminally investigate or prosecute any alcohol or drug abuse patient.[facility] CenterIn the event this information is protected by the Federal Confidentiality of Alcohol and Drug Abuse Patient Records regulations: The Federal rules restrict any use of the information to criminally investigate or prosecute any alcohol or drug abuse patient.[facility] CenterIn the event this information is protected by the Federal Confidentiality of Alcohol and Drug Abuse Patient Records regulations: The Federal rules restrict any use of the information to criminally investigate or prosecute any alcohol or drug abuse patient.[facility] CenterIn the event this information is protected by the Federal Confidentiality of Alcohol and Drug Abuse Patient Records regulations: The Federal rules restrict any use of the information to criminally investigate or prosecute any alcohol or drug abuse patient.[facility] CenterIn the event this information is protected by the Federal Confidentiality of Alcohol and Drug Abuse Patient Records regulations: The Federal rules restrict any use of the information to criminally investigate or prosecute any alcohol or drug abuse patient.[facility] CenterIn the event this information is protected by the Federal Confidentiality of Alcohol and Drug Abuse Patient Records regulations: The Federal rules restrict any use of the information to criminally investigate or prosecute any alcohol or drug abuse patient.[facility] CenterIn the event this information is protected by the Federal Confidentiality of Alcohol and Drug Abuse Patient Records regulations: The Federal rules restrict any use of the information to criminally investigate or prosecute any alcohol or drug abuse patient.[facility] CenterIn the event this information is protected by the Federal Confidentiality of Alcohol and Drug Abuse Patient Records regulations: The Federal rules restrict any use of the information to criminally investigate or prosecute any alcohol or drug abuse patient.[facility] CenterIn the event this information is protected by the Federal Confidentiality of Alcohol and Drug Abuse Patient Records regulations: The Federal rules restrict any use of the information to criminally investigate or prosecute any alcohol or drug abuse patient.[facility] CenterIn the event this information is protected by the Federal Confidentiality of Alcohol and Drug Abuse Patient Records regulations: The Federal rules restrict any use of the information to criminally investigate or prosecute any alcohol or drug abuse patient.[facility] CenterIn the event this information is protected by the Federal Confidentiality of Alcohol and Drug Abuse Patient Records regulations: The Federal rules restrict any use of the information to criminally investigate or prosecute any alcohol or drug abuse patient.[facility] CenterIn the event this information is protected by the Federal Confidentiality of Alcohol and Drug Abuse Patient Records regulations: The Federal rules restrict any use of the information to criminally investigate or prosecute any alcohol or drug abuse patient.[facility] CenterIn the event this information is protected by the Federal Confidentiality of Alcohol and Drug Abuse Patient Records regulations: The Federal rules restrict any use of the information to criminally investigate or prosecute any alcohol or drug abuse patient.[facility] CenterIn the event this information is protected by the Federal Confidentiality of Alcohol and Drug Abuse Patient Records regulations: The Federal rules restrict any use of the information to criminally investigate or prosecute any alcohol or drug abuse patient.[facility] CenterIn the event this information is protected by the Federal Confidentiality of Alcohol and Drug Abuse Patient Records regulations: The Federal rules restrict any use of the information to criminally investigate or prosecute any alcohol or drug abuse patient.[facility] CenterIn the event this information is protected by the Federal Confidentiality of Alcohol and Drug Abuse Patient Records regulations: The Federal rules restrict any use of the information to criminally investigate or prosecute any alcohol or drug abuse patient.[facility] CenterIn the event this information is protected by the Federal Confidentiality of Alcohol and Drug Abuse Patient Records regulations: The Federal rules restrict any use of the information to criminally investigate or prosecute any alcohol or drug abuse patient.[facility] CenterIn the event this information is protected by the Federal Confidentiality of Alcohol and Drug Abuse Patient Records regulations: The Federal rules restrict any use of the information to criminally investigate or prosecute any alcohol or drug abuse patient.[facility] CenterIn the event this information is [...] prosecute any alcohol or drug abuse patient.[facility] CenterIn the event this information is protected by the Federal Confidentiality of Alcohol and Drug Abuse Patient Records regulations: The Federal rules restrict any use of the information to criminally investigate or prosecute any alcohol or drug abuse patient.[facility] CenterIn the event this information is protected by the Federal Confidentiality of Alcohol and Drug Abuse Patient Records regulations: The Federal rules restrict any use of the information to criminally investigate or prosecute any alcohol or drug abuse patient.[facility] CenterIn the event this information is protected by the Federal Confidentiality of Alcohol and Drug Abuse Patient Records regulations: The Federal rules restrict any use of the information to criminally investigate or prosecute any alcohol or drug abuse patient.[facility] CenterIn the event this information is protected by the Federal Confidentiality of Alcohol and Drug Abuse Patient Records regulations: The Federal rules restrict any use of the information to criminally investigate or prosecute any alcohol or drug abuse patient.[facility] CenterIn the event this information is protected by the Federal Confidentiality of Alcohol and Drug Abuse Patient Records regulations: The Federal rules restrict any use of the information to criminally investigate or prosecute any alcohol or drug abuse patient.[facility] CenterIn the event this information is protected by the Federal Confidentiality of Alcohol and Drug Abuse Patient Records regulations: The Federal rules restrict any use of the information to criminally investigate or prosecute any alcohol or drug abuse patient.[facility] CenterIn the event this information is protected by the Federal Confidentiality of Alcohol and Drug Abuse Patient Records regulations: The Federal rules restrict any use of the information to criminally investigate or prosecute any alcohol or drug abuse patient.[facility] CenterIn the event this information is protected by the Federal Confidentiality of Alcohol and Drug Abuse Patient Records regulations: The Federal rules restrict any use of the information to criminally investigate or prosecute any alcohol or drug abuse patient.[facility] CenterIn the event this information is protected by the Federal Confidentiality of Alcohol and Drug Abuse Patient Records regulations: The Federal rules restrict any use of the information to criminally investigate or prosecute any alcohol or drug abuse patient.[facility] CenterIn the event this information is protected by the Federal Confidentiality of Alcohol and Drug Abuse Patient Records regulations: The Federal rules restrict any use of the information to criminally investigate or prosecute any alcohol or drug abuse patient.[facility] CenterIn the event this information is protected by the Federal Confidentiality of Alcohol and Drug Abuse Patient Records regulations: The Federal rules restrict any use of the information to criminally investigate or prosecute any alcohol or drug abuse patient.[facility] CenterIn the event this information is protected by the Federal Confidentiality of Alcohol and Drug Abuse Patient Records regulations: The Federal rules restrict any use of the information to criminally investigate or prosecute any alcohol or drug abuse patient.[facility] CenterIn the event this information is protected by the Federal Confidentiality of Alcohol and Drug Abuse Patient Records regulations: The Federal rules restrict any use of the information to criminally investigate or prosecute any alcohol or drug abuse patient.[facility] CenterIn the event this information is protected by the Federal Confidentiality of Alcohol and Drug Abuse Patient Records regulations: The Federal rules restrict any use of the information to criminally investigate or prosecute any alcohol or drug abuse patient.[facility] CenterIn the event this information is protected by the Federal Confidentiality of Alcohol and Drug Abuse Patient Records regulations: The Federal rules restrict any use of the information to criminally investigate or prosecute any alcohol or drug abuse patient.[facility] CenterIn the event this information is protected by the Federal Confidentiality of Alcohol and Drug Abuse Patient Records regulations: The Federal rules restrict any use of the information to criminally investigate or prosecute any alcohol or drug abuse patient.[facility] CenterIn the event this information is protected by the Federal Confidentiality of Alcohol and Drug Abuse Patient Records regulations: The Federal rules restrict any use of the information to criminally investigate or prosecute any alcohol or drug abuse patient.[facility] CenterIn the event this information is protected by the Federal Confidentiality of Alcohol and Drug Abuse Patient Records regulations: The Federal rules restrict any use of the information to criminally investigate or prosecute any alcohol or drug abuse patient.[facility] CenterIn the event this information is protected by the Federal Confidentiality of Alcohol and Drug Abuse Patient Records regulations: The Federal rules restrict any use of the information to criminally investigate or prosecute any alcohol or drug abuse patient.[facility] CenterIn the event this information is protected by the Federal Confidentiality of Alcohol and Drug Abuse Patient Records regulations: The Federal rules restrict any use of the information to criminally investigate or prosecute any alcohol or drug abuse patient.[facility] CenterIn the event this information is protected by the Federal Confidentiality of Alcohol and Drug Abuse Patient Records regulations: The Federal rules restrict any use of the information to criminally investigate or prosecute any alcohol or drug abuse patient.[facility] CenterIn the event this information is protected by the Federal Confidentiality of Alcohol and Drug Abuse Patient Records regulations: The Federal rules restrict any use of the information to criminally investigate or prosecute any alcohol or drug abuse patient.[facility] CenterIn the event this information is protected by the Federal Confidentiality of Alcohol and Drug Abuse Patient Records regulations: The Federal rules restrict any use of the information to criminally investigate or prosecute any alcohol or drug abuse patient.[facility] CenterIn the event this information is protected by the Federal Confidentiality of Alcohol and Drug Abuse Patient Records regulations: The Federal rules restrict any use of the information to criminally investigate or prosecute any alcohol or drug abuse patient.[facility] CenterIn the event this information is protected by the Federal Confidentiality of Alcohol and Drug Abuse Patient Records regulations: The Federal rules restrict any use of the information to criminally investigate or prosecute any alcohol or drug abuse patient.[facility] CenterIn the event this information is protected by the Federal Confidentiality of Alcohol and Drug Abuse Patient Records regulations: The Federal rules restrict any use of the information to criminally investigate or prosecute any alcohol or drug abuse patient.[facility] CenterIn the event this information is protected by the Federal Confidentiality of Alcohol and Drug Abuse Patient Records regulations: The Federal rules restrict any use of the information to criminally investigate or prosecute any alcohol or drug abuse patient.[facility] CenterIn the event this information is protected by the Federal Confidentiality of Alcohol and Drug Abuse Patient Records regulations: The Federal rules restrict any use of the information to criminally investigate or prosecute any alcohol or drug abuse patient.[facility] CenterIn the event this information is protected by the Federal Confidentiality of Alcohol and Drug Abuse Patient Records regulations: The Federal rules restrict any use of the information to criminally investigate or prosecute any alcohol or drug abuse patient.[facility] CenterIn the event this information is protected by the Federal Confidentiality of Alcohol and Drug Abuse Patient Records regulations: The Federal rules restrict any use of the information to criminally investigate or prosecute any alcohol or drug abuse patient.[facility] CenterIn the event this information is protected by the Federal Confidentiality of Alcohol and Drug Abuse Patient Records regulations: The Federal rules restrict any use of the information to criminally investigate or prosecute any alcohol or drug abuse patient.[facility] CenterIn the event this information is protected by the Federal Confidentiality of Alcohol and Drug Abuse Patient Records regulations: The Federal rules restrict any use of the information to criminally investigate or prosecute any alcohol or drug abuse patient.[facility] CenterIn the event this information is protected by the Federal Confidentiality of Alcohol and Drug Abuse Patient Records regulations: The Federal rules restrict any use of the information to criminally investigate or prosecute any alcohol or drug abuse patient.[facility] CenterIn the event this information is protected by the Federal Confidentiality of Alcohol and Drug Abuse Patient Records regulations: The Federal rules restrict any use of the information to criminally investigate or prosecute any alcohol or drug abuse patient.[facility] CenterIn the event this information is protected by the Federal Confidentiality of Alcohol and Drug Abuse Patient Records regulations: The Federal rules restrict any use of the information to criminally investigate or prosecute any alcohol or drug abuse patient.[facility] CenterIn the event this information is protected by the Federal Confidentiality of Alcohol and Drug Abuse Patient Records regulations: The Federal rules restrict any use of the information to criminally investigate or prosecute any alcohol or drug abuse patient.[facility] CenterIn the event this information is protected by the Federal Confidentiality of Alcohol and Drug Abuse Patient Records regulations: The Federal rules restrict any use of the information to criminally investigate or prosecute any alcohol or drug abuse patient.[facility] CenterIn the event this information is protected by the Federal Confidentiality of Alcohol and Drug Abuse Patient Records regulations: The Federal rules restrict any use of the information to criminally investigate or prosecute any alcohol or drug abuse patient.[facility] CenterIn the event this information is protected by the Federal Confidentiality of Alcohol and Drug Abuse Patient Records regulations: The Federal rules restrict any use of the information to criminally investigate or prosecute any alcohol or drug abuse patient.[facility] CenterIn the event this information is protected by the Federal Confidentiality of Alcohol and Drug Abuse Patient Records regulations: The Federal rules restrict any use of the information to criminally investigate or prosecute any alcohol or drug abuse patient.[facility] CenterIn the event this information is protected by the Federal Confidentiality of Alcohol and Drug Abuse Patient Records regulations: The Federal rules restrict any use of the information to criminally investigate or prosecute any alcohol or drug abuse patient.[facility] CenterIn the event this information is protected by the Federal Confidentiality of Alcohol and Drug Abuse Patient Records regulations: The Federal rules restrict any use of the information to criminally investigate or prosecute any alcohol or drug abuse patient.[facility] CenterIn the event this information is protected by the Federal Confidentiality of Alcohol and Drug Abuse Patient Records regulations: The Federal rules restrict any use of the information to criminally investigate or prosecute any alcohol or drug abuse patient.[facility] CenterIn the event this information is protected by the Federal Confidentiality of Alcohol and Drug Abuse Patient Records regulations: The Federal rules restrict any use of the information to criminally investigate or prosecute any alcohol or drug abuse patient.[facility] CenterIn the event this information is protected by the Federal Confidentiality of Alcohol and Drug Abuse Patient Records regulations: The Federal rules restrict any use of the information to criminally investigate or prosecute any alcohol or drug abuse patient.[facility] CenterIn the event this information is protected by the Federal Confidentiality of Alcohol and Drug Abuse Patient Records regulations: The Federal rules restrict any use of the information to criminally investigate or prosecute any alcohol or drug abuse patient.[facility] Reason for Visit (unrecogniz ed section and content) ReasonCommentsRadio Gen X92HnnxeubrgBakmmaxzf / ProceduresReferred By Contact Referred To ContactXR IMAGING Diagnoses History of lumbar laminectomy for spinal cord decompression Degenerative scoliosis in adult patient Chronic low back pain, unspecified back pain laterality, unspecified whether sciatica present Procedures XR SCOLIOSIS PA STAND/LAT 2V RADEX ENTIR THRC LMBR CRV SAC SPI W/SKULL 2/3 VW Katherine Keith MD [address] [place] [address] Xr Imaging [place] [address] Referral IDStatusReasonStart DateExpiration DateVisits RequestedVisits [id number] Auto-Generated Referral /[id number] Main R4DaakxquqzUecvfpxop / Procedures Referred By ContactReferred To ContactXR IMAGING Diagnoses Spinal stenosis, lumbar region with neurogenic claudication Procedures XR LUMBAR MOTION 4V AP/LAT/ FLEX/EXT RADEX SPINE LUMBOSACRAL MINIMUM 4 VIEWS Alfonso Loyd PA-C [address] [place] [address] Xr Imaging [place] [address] Referral IDStatusReasonStart DateExpiration DateVisits RequestedVisits [id number] Auto-Generated Referral /[id number] / ProceduresReferred By ContactReferred To ContactCT IMAGING Diagnoses Chronic low back pain, unspecified back pain laterality, unspecified whether sciatica present Procedures CT LUMBAR SPINE WO IVCON CT LUMBAR SPINE W/O CONTRAST MATERIAL Katherine Keith MD [address] [place] [address] Ct Imaging [place] [address] Referral IDStatusReasonStart DateExpiration DateVisits RequestedVisits [id number] Auto-Generated Referral /[id number] PatientReasonCommentsSchedule Surgery ReasonCommentsFormsReasonCommentsPatient UpdateReasonCommentsBlood Management ReasonCommentsFollow UpReasonCommentsEstablished PatientReasonCommentsMedication ProblemReasonOnset DateCommentsRefill Cbhnuuw90/25/2024ReasonOnset DateComments Refill Gvgndbp74/28/2024ReasonOnset DateCommentsRefill Vykygbv60/11/2024Reason CommentsCARE CONTINUUM ADVISOR ASSESSMENTReasonCommentsResearchReasonOnset Date CommentsRefill Vegolut82/07/2024ReasonCommentsmedicationReasonComments Established PatientReasonOnset DateCommentsRefill Hubmxvn42/21/2024ReasonOnset DateCommentsRefill Habzwit19/28/2024ReasonCommentsInsurance Authorization SpecialtyDiagnoses / ProceduresReferred By ContactReferred To ContactXR IMAGING Diagnoses History of laminectomy Degenerative scoliosis in adult patient Procedures XR LUMBAR LIMITED 2V AP/LAT RADEX SPINE LUMBOSACRAL 2/3 VIEWS Alfonso Loyd PA-C [address] [place] [address] Xr Imaging [place] [address] Referral IDStatusReasonStart DateExpiration DateVisits RequestedVisits [id number] Auto-Generated Referral /[id number] OpReasonCommentsCare Coordinator - Other ReasonOnset DateCommentsRefill Declyhx04/14/2024ReasonCommentsEstablished PatientFollow UpSpecialtyDiagnoses / ProceduresReferred By ContactReferred To ContactMR IMAGING Diagnoses Adverse effect of treatment, sequela Procedures MRI LUMBAR SPINE WO IVCON MRI SPINAL CANAL LUMBAR W/O CONTRAST MATERIAL Katherine Keith MD [address] [place] [address] Mr Imaging [place] [address] Referral IDStatusReason[place] DateExpiration DateVisits RequestedVisits [id number] Auto-Generated Referral [id number] / ProceduresReferred By ContactReferred To ContactMR IMAGING Diagnoses Adverse effect of treatment, sequela Procedures MRI THORACIC SPINE WO IVCON MRI SPINAL CANAL THORACIC W/O CONTRAST MATRL Katherine Keith MD [address] [place] [address] Mr Imaging [place] [address] Referral IDStatusReason[place] DateExpiration DateVisits RequestedVisits [id number] Auto-Generated Referral [id number] / ProceduresReferred By ContactReferred To ContactCT IMAGING Diagnoses Acute low back pain, unspecified back pain laterality, unspecified whether sciatica present Procedures CT LUMBAR SPINE WO IVCON CT LUMBAR SPINE W/O CONTRAST MATERIAL Katherine Keith MD [address] [place] [address] Ct Imaging [place] [address] Referral IDStatOhioHealth [facility] DateExpiration DateVisits RequestedVisits [id number] Auto-Generated Referral 1ReasonOnset QuugMlnbxhixKVW03/06/2024SpecialtyDiagnoses / ProceduresReferred By ContactReferred To ContactNEUROLOGICAL INSTITUTE Diagnoses Adverse effect of treatment, sequela Procedures EMG(NEURO/NI) NERVE CONDUCTION STUDIES 9-10 STUDIES Katherine Keith MD [address] [place] [address] [facility] [place] [address] [place] [address] Referral IDStatGabrielaHelen Keller Hospital DateExpiration DateVisits RequestedVisits [id number] Auto-Generated Referral [id number] MRISpecialtyDiagnoses / Procedures Referred By ContactReferred To ContactMR IMAGING Diagnoses Spinal stenosis of cervical region Procedures MRI CERVICAL SPINE WO IVCON MRI SPINAL CANAL CERVICAL W/O CONTRAST Alfonso Campos PA-C [address] [place] [address] Mr Imaging [facility]95 Referral IDStatusReasonStart DateExpiration DateVisits RequestedVisits [id number] Auto-Generated Referral [id number] Of CareReasonCommentsPost Op ReasonOnset DateCommentsRefill Oxngoof2206/21/2024ReasonOnset DateCommentsRefill Ittqlqn2106/28/2024 FOR RECORDS PERTAINING TO PATIENTS WHO ARE [...] BE BASED ON THE PRIMARY CLINICAL RECORDS. [employer] provides no warranty or guarantee of the accuracy or completeness of information in this document.
--- OUTSIDE RECORDS SUMMARY | 2025-03-08 06:44 | XMS_ITS | Clinical Summary ---
Author Organization [facility] Address [address] [place] [address] Care Team Providers Care It Application Administrator Name Role Phone Devon Craven MD Primary Care Provider Allergies Active AllergyReactionsCriticalityNoted DateCommentsAmlodipineNausea Only 12/24/20243269EkferdbtlefyizkyquhGdwukstl64/12/2025MethocarbamolGI intolerance 11/12/2023enicillinsHives,CycdDwx9307/04/2006 Medications MedicationSigDispense QuantityRefillsLast FilledStart DateEnd DateStatus carvedilol [...] ProblemNoted DateDiagnosed DateAdenomatous polyp of colon12/24/2024nemia 12/24/2024nkle ycekwb6512/24/2024enign prostatic syxnltsiuxe56/17/2025PH with obstruction/lower urinary tract kymdvrgr27/17/2025MI 28.0-28.9,adult12/24/2024 Cecal polyp12/24/20241645Xeztoqetun94/17/2025Diverticulosis of intestine, part unspecified, without perforation or abscess without jlipcndv27/17/2025Edema 12/24/2024Gross rabauukcd94/17/5357Xvtoslrpzykt59/17/2025Impingement syndrome of both ojfaushzn30/17/2025Incarcerated epigastric lzwkdi9012/24/2024Internal fuueybvclf56/17/2025Intradermal nevus12/24/20249314Tynsrgwkmy71/17/2025Personal history of adenomatous and serrated colon usixzg7612/24/2024Pure igkdgktoqwlxhpnoxcmz99/17/2025Previous back xhbrkvk7512/24/2024Sacroiliitis, not elsewhere nylddqrwbu98/17/2025Screening for malignant neoplasm of colon 12/24/2024Sigmoid aczopdehmcqihq28/17/2025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12/24/2024Varicose veins of lower trcaivyey75/17/2025Varicose veins of other specified sites12/24/2024Ventricular premature gbtvmrfezcvhbl71/17/2025ute postoperative pain06/08/2024Elevated qovvpjrj39/01/2025S/P cervical spinal wdbdxi4706/08/2024ervical spondylosis with /27/2025Low back pain 10/02/2023Edema of both lower avtwbqjljyu79/01/2024Intractable pain09/08/2023 Localized swelling of lower xpkxizupf80/01/2024ain and swelling of lower rxfvxyjsk43/01/2024Foot drop, right foot08/20/2023Scoliosis of lumbar region due to degenerative disease of spine in adult08/20/2023History of penicillin allergy 4Primary bvjazcvdfckm39/29/9854Jzpeaernopbo27/06/2020SVT (supraventricular tachycardia)07/14/2019Other seborrheic slsdstlcy86/02/2009 Benign neoplasm of skin08/05/2008 Encounters DateTypeDepartmentCare QfuoLgiwnoawwrd45/12/2025Orders Only [facility] [address] [place] [address] Jazmín Kohli MA Benign hypertensive 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 (Primary Dx) 02/07/2025Telephone [facility] [address] [place] [address] Tania Colon MA 02/07/2025Telephone [facility] [address] [place] [address] Tania Colon MA 12/24/2024 3:30 PM EDTOffice Visit [facility] [address] [place] [address] Tobi Mccullough MD Primary hypertension (Primary Dx); LVH (left ventricular hypertrophy)12/22/2024Orders Only [facility] [address] [place] [facility] [place] [phone] ProviderSandie MD from Last 3 Months Family History Medical HistoryRelationNameCommentsMelanomaBrotherCoronary artery diseaseFather MelanomaFatherStrokeMotherRelationNameStatusCommentsBrotherDeceasedFather DeceasedMotherDeceased Social History Tobacco UseTypesPacks/DayYears UsedDateSmoking Tobacco: NeverSmokeless Tobacco: Never Tobacco Cessation:Counseling Given: Not Answered Alcohol UseStandard Drinks/WeekCommentsNot Currently0 (1 standard drink = 0.6 oz pure alcohol)Sex and Gender InformationValueDate RecordedSex Assigned at Male12/20/2024 2:00 PM EDTLegal LpeNcor7809/05/2021 11:07 PM EDTGender Identity Male12/20/2024 2:00 PM EDTSexual OrientationHeterosexual or Mijyrqdr57/13/2025 2:00 PM EDT Last Filed Vital Signs Vital SignReadingTime TakenCommentsBlood Jizhdhcc289/7110 3:36 PM EDT Otpnz8132 3:36 PM EDTTemperature--Respiratory Rate--Oxygen Yrinyjvpdw02% 12/24/2024 3:36 PM EDTInhaled Oxygen Concentration--Yzbwdl91.4 kg (206 lb) 12/24/2024 3:36 PM KOFKklfxp291.9 cm (6')06/27/2020 10:21 AM EDTBody Mass Index 27.9406/27/2020 10:21 AM EDT Plan of Treatment Health MaintenanceDue DateLast DoneCommentsCT Zhejedgdirny62/03/1958FIT-DNA 1957FIT1957FOBT1957 0736Uvunbynjkaicz26/03/1958Depression Screening 1969Adult Qmzoycx7503/12/1979Pneumococcal Vaccine: 50+ Years (1 of 1 - PCV) 2007Zoster Vaccines (1 of 2)2007Fall Risk Npnjsthus96/03/2023COVID- 19 Vaccine ( season), 06/09/2020, 05/19/2020 Influenza Vaccine (#1)/8773Dupcabzhatu71 Colorectal Cancer Acleqycwr76/18/2034HIB VaccinesAged OutNo longer eligible based on patient's [...] MemberRelationshipSpecialtyStart DateEnd Date Devon Craven MD [address] [place] [address] PCP - Ijijbvy57/12/25
--- OUTSIDE RECORDS SUMMARY | 2025-03-08 06:44 | XMS_ITS | Clinical Summary ---
Author Organization [facility] Address [address] [place] [address] Phone Care Team Providers Care Berry Picker Name Role Phone Devon Craven MD Primary Care Provider [phone] Social History Tobacco UseTypesPacks/DayYears UsedDateSmoking Tobacco: Never AssessedSex and Gender InformationValueDate RecordedSex Assigned at BirthNot on fileLegal Sex Male02/01/2022 11:16 PM ESTGender IdentityNot on fileSexual OrientationNot on file Plan of Treatment Health MaintenanceDue DateLast DoneCommentsCT Fbwshbaywejo91/03/1958Colonoscopy 1957Colorectal Cancer Oukmytllr08/03/1958FIT-DNA (Cologuard)1957FIT 1957Lipid Panel1957 0740Mzlqptuouxgkf79/03/1958Yearly Adult Physical 1957MMR Vaccines (1 of 1 - Standard series)1958Hepatitis C Screening 1975DTaP/Tdap/Td Vaccines (1 - Tdap)1979PSA Prostate Cancer Kwxpsrfga32/03/2008Pneumococcal Vaccine (1 of 1 - PCV)2007Zoster Vaccines (1 of 2)2007COVID-19 Vaccine (1 - 2024- season)2024Influenza Vaccine (#1)2024RSV High Risk: (Elderly (60+) or Population) (1 - 1-dose 75+ series)2032HIB VaccinesAged OutNo longer eligible based [...] MemberRelationshipSpecialtyStart DateEnd Devon Craven MD [address] [place] [address] [facility]05/03/11
--- OUTSIDE RECORDS SUMMARY | 2025-03-08 06:44 | XMS_ITS | Patient Health Record ---
Author Organization The [facility] in [place] Address [address] [place] [address] Care Team Providers Care Certified Surgical Tech/First Assistant Name Role Phone Micheal Cain Primary Care Provider [phone] Rita Mcmahon [phone] Allergies Allergen (clinical drug ingredient) Drug/Non Drug Allergy documented on EMR Reaction Allergy Type Onset Date Status methocarbamol Robaxin Unknown Drug Allergy ActivePenicillinhivesDrug AllergyActive Results Component Value Reference Range Notes PROF 14(COMP METB) Reviewed date:09/28/2024 04:08:58 PM Interpretation: Performing Lab: Notes/Report: [facility] , Sodium 141 136-145 mmol/L Potassium4.73.5-5.1 mmol/INanerzvb90675-851 mmol/LCarbon Mugzmho41.921.0-32.0 mmol/LAnion Gap12.8Mgsuucx4757-129 mg/dLBlood Urea Xbbpjffj53.07.0-18.0 mg/dL Creatinine1.020.70-1.30 mg/dLEstimated GFR ( Eugenie>60>=60 mL/min/1.73m 2Estimated GFR (Non- Gracie>60>=60 mL/min/1.73m 2BUN Creatinine Ratio25.5 Calcium9.58.5-10.1 mg/dLBilirubin Total1.00.2-1.0 mg/dLAspartate Amino Vzpkipwrggc3848-23 U/LAlanine Xuzzxinqovfofcxt1838-76 U/LAlkaline Uboqpuvaenx78 46-116 U/LTotal Protein6.66.4-8.2 g/dLAlbumin Level3.83.4-5.0 g/dLGlobulin2.8 Albumin Globulin Ratio1.4Performing Lab:see noteML - [facility] LB GLYCOHEMOGLOBIN A1C Reviewed date:09/28/2024 04:08:58 PM Interpretation: Performing Lab: Notes/Report: [facility] ,Glycohemoglobin A1C5.54.5-6.2 % ADA RECOMMENDED LIMIT 4.0 - 6.0 ADA THERAPEUTIC TARGET < 7.0 ACTION SUGGESTED > 7.0 Estimated Average Kmccuti513Ibwmuvoikm Lab:see noteML - [facility] LB CBC AUTO DIFF Reviewed date:09/28/2024 04:08:58 PM Interpretation: Performing Lab: Notes/Report: [facility] ,White Blood Count6.34.0-11.0 10 3/uLRed Blood Count4.464.70-6.10 10 6/uL Eayondsdnv23.914.0-18.0 g/lABrvtrxukfq81.942.0-54.0 %Mean Corpuscular Zfmhni94.7 80.0-94.0 fLMean Corpuscular Zmbxjqczgf93.225.9-34.0 pgMean Corpuscular HGB Conc 34.029.9-35.2 g/dLRed Cell Distribution Width13.711.0-15.0 %Platelet Nmlkz915 150-450 10 3/uLMean Platelet Volume9.49.5-13.5 fLNeutrophils Percent Auto49.8 43.0-75.0 %Lymphocytes Percent Auto32.120.5-60.0 %Monocytes Percent Auto12.61.7- 12.0 %Eosinophils Percent Auto3.90.9-7.0 %Basophils Percent Auto0.80.2-2.0 % Immature Granulocytes Pct Auto0.80.0-0.5 %Neutrophils Absolute Auto3.21.4-6.5 10 3/uLLymphocytes Absolute Auto2.01.2-3.8 10 3/uLMonocytes Absolute Auto0.80.3-0.8 10 3/uLEosinophils Absolute Auto0.30.0-0.7 10 3/uLBasophils Absolute Auto0.10.0- 0.1 10 3/uLImmature Granulocytes Abs Auto0.050.00-0.03 10 3/uLPerforming Lab:see noteML - [facility] LBXR cervical spine 2-3V Reviewed date:06/29/2024 08:32:50 PM Interpretation: Performing Lab: Notes/Report: Source Facility: [facility]-[address] [place] [address] [place] [address] XRay Report Signed Patient: RAZA RODRIGUEZ MR#: [id number] : 1955 Acct:[id number] Age/Sex: 69 / M ADM Date: 06/29/24 Loc: RAD Attending Dr: Trupti-Staff Physician Fields Ordering Physician: Jennyfer Garber M.D. Date of Service: 06/29/24 Procedure(s): XR cervical spine 2-3V Accession Number(s): [id number] cc: Ester Cain M.D.; Jennyfer Garber M.D. The [place] [address] Patient Name: RAZA RODRIGUEZ MRN: [id number] date: 1955 Sex: M Assigned [facility]: [facility] Current [facility] Location: [facility] Accession/Order Number: [id number] Exam Date: 06/29/2024 17:59 Report Date: 06/29/2024 [...] Pisano Jr., D.O.06/29/2024 6:00 PM Dictation Location: [place] [address] Electronically authenticated by: [id number] Y Date: 06/29/2024 18:00 Dictated By: James Pisano M.D. Signed By: 06/29/24 180 DD/ 1800 TD/TT: Timber Spotter:XR ankle LT min 3V Reviewed date:05/03/2024 08:28:40 PM Interpretation: Performing Lab: Notes/Report: Source Facility: [place] [address] [place] [address] XRay Report Signed Patient: RAZA RODRIGUEZ MR#: [id number] : 1955 Acct:[id number] Age/Sex: 69 / M ADM Date: 05/03/24 Loc: RAD Attending Dr: Ester Cain M.D. Ordering Physician: Ester Cain M.D. Date of Service: 05/03/24 Procedure(s): XR ankle LT min 3V Accession Number(s): [id number] cc: Ester Cain M.D. The [place] [address] Patient Name: RAZA RODRIGUEZ MRN: [id number] date: 1955 Sex: M Assigned [facility] Location: [facility] Current Patient Location: [facility] Accession/Order Number: [id number] Exam Date: 05/03/2024 16:35 Report Date: 05/03/2024 [...] Charlene Souza M.D.05/03/2024 4:41 PM Dictation Location: [place] [address] Electronically authenticated by: [id number] Y Date: 05/03/2024 16:41 Dictated By: Charlene Souza M.D. Signed By: 05/03/241643 DD/ 40 TD/TT: Timber Spotter:CT cervical spine wo con Reviewed date:02/28/2025 01:45:10 PM Interpretation: Performing Lab: Notes/Report: Source Facility: [place] [address] CT Scan Report Signed Patient: RAZA RODRIGUEZ MR#: [id number] : 1955 Acct:[id number] Age/Sex: 69 / M ADM Date: 02/28/25 Loc: CT Attending Dr: Ester Cain M.D. Ordering Physician: Ester Cain M.D. Date of Service: 02/28/25 Procedure(s): CT cervical spine wo con Accession Number(s): [id number] cc: Ester Cain M.D. [place] [address] Patient Name: RAZA RODRIGUEZ MRN: [id number] date: 1955 Sex: M Assigned Patient Location: CT Current Patient Location: CT Accession/Order Number: [id number] Exam Date: 02/28/2025 12:46 Report Date: 02/28/2025 13:22 At the request of: ESTER CAIN MD Procedure: CT cervical spine wo con CT CERVICAL SPINE WITHOUT CONTRAST WITH 3D RECONSTRUCTIONS: CLINICAL HISTORY: Constant neck pain and grinding. History of fall 1 - 2 months ago. Previous laminoplasty. M54.12 COMPARISON: Plain films 06/29/2024 TECHNIQUE: Spiral axial unenhanced images were obtained through the cervical spine. Sagittal, coronal and 3D volume-rendered reconstructions were also reviewed. This CT exam was performed using one or more following dose reduction techniques: Automated exposure control, adjustment of the mA and/or kV according to patient size, or use of iterative reconstruction technique. FINDINGS: There is prior laminoplasty with plate and screws on the left from C4 through C6 the hardware, as visualized appears intact and in appropriate position. There is reversal of the normal cervical lordosis. No significant displacement is seen. No acute fractures are identified. There is disc space narrowing from C3 - 4 down. There is endplate spurring at those levels as well some ossification at the posterior longitudinal ligament. Facet hypertrophy is also present. At C2-3, there is mild bony foraminal encroachment on the right. At C3-4, there is mild thecal sac effacement, slightly asymmetric in the right parasagittal region. There is also moderate bilateral foraminal encroachment, right worse than left. At C4-5, there is mild bony foraminal encroachment on the right and mild to moderate on the left. At C5-6, there is moderate thecal sac effacement which is asymmetric in the right parasagittal region. There is also at least moderate narrowing of the neural foramen on both sides though greater on the right. At C5-6, there is moderate central stenosis and mild bilateral foraminal impingement. The atlantoaxial relationship is maintained. No prevertebral soft tissue swelling is seen. There are tiny cervical lymph nodes. The upper imaged lungs show no contributory findings. CT/CT cervical spine wo con IMPRESSION: REVERSAL OF NORMAL CERVICAL LORDOSIS. POSTOPERATIVE CHANGES OF LEFT LAMINOPLASTY. DEGENERATIVE CHANGES AND ASSOCIATED STENOSIS, DESCRIBED. Impression dictated by: Charlene Souza M.D. 02/28/2025 1:22 PM Dictation Location: [place] [address] Electronically authenticated by: [id number] Y Date: 02/28/2025 13:22 Dictated By: Charlene Souza M.D. Signed By: 02/28/25 1324 DD/ 1322 TD/TT: Timber Spotter:DEANDRA LAMAS MICRO ([id number]) - IN OFFICE Reviewed date:02/10/2025 05:24:49 PM Interpretation: Performing Lab: Notes/Report: COLORorangeCLARITYclearGLUCOSEnegBILIRUBINnegKETONEnegSPECIFIC GRAVITY1.025BLOOD qdzTX0DRLTRNRcuzxmYJNVYPWYPQHTkqhLYZNGBLtrhPKVBSOVIP ESTERASEnegIRON Reviewed date:09/28/2024 04:08:58 PM Interpretation: Performing Lab: Notes/Report: [facility] ,Zkya410.065.0-175.0 ug/dLPerforming Lab:see noteML - [facility] LB BNP Reviewed date:07/06/2024 12:21:03 PM Interpretation: Performing Lab: Notes/Report: [facility] ,NT Pro B Type Natriuretic Dfgy084.0<=900.0 pg/mLPerforming Lab:see noteML - [facility] LBMR lumbar spine wo con Reviewed date:02/10/2025 05:24:49 PM Interpretation: Performing Lab: Notes/Report: Source Facility: [place] [address] Magnetic Resonance Report Signed Patient: RAZA RODRIGUEZ MR#: [id number] : 1955 Acct:[id number] Age/Sex: 69 / M ADM Date: 02/09/25 Loc: MRI Attending Dr: Ester Cain M.D. Ordering Physician: Ester Cain M.D. Date of Service: 02/09/25 Procedure(s): MR lumbar spine wo con Accession Number(s): [id number] cc: Ester Cain M.D. [place] [address] Patient Name: RAZA RODRIGUEZ MRN: [id number] date: 1955 Sex: M Assigned Patient Location: MRI Current Patient Location: MRI Accession/Order Number: [id number] Exam Date: 02/09/2025 14:00 Report Date: 02/09/2025 [...] at mid L2 T12-L1: Schmorl's node deformities. Ksjr-pl-ceqbwawt disc space narrowing and facet arthropathy. No [...] Lees M.D. 02/09/2025 10:21 PM Dictation Location: [place] [address] Electronically authenticated by: [id number] Y Date: 02/09/2025 22:21 Dictated By: Mario Lees M.D. Signed By: 02/09/252223 DD/ 20 TD/TT: Timber Spotter:TSH Reviewed date:11/08/2024 02:09:43 PM Interpretation: Performing Lab: Notes/Report: [facility] ,Thyroid Stimulating Hormone0.3780.358-3.740 uIU/mLPerforming Lab:see noteML - [facility] LBT4 Reviewed date:11/08/2024 02:09:43 PM Interpretation: Performing Lab: Notes/Report: [facility] ,T4 Thyroxine4.804.50-12.10 ug/dLPerforming Lab:see note - [facility] LBFREE T3 Reviewed date:11/08/2024 02:09:43 PM Interpretation: Performing Lab: Notes/Report: [facility] ,Free T32.512.18-3.98 pg/mLPerforming Lab:see noteML - [facility] LB CA echo doppler complete Reviewed date:10/18/2024 07:58:21 PM Interpretation: Performing Lab: Notes/Report: Source Facility: [place] [address] Cardiology Report Signed Patient: RAZA RODRIGUEZ MR#: [id number] : 1955 Acct:[id number] Age/Sex: 69 / M ADM Date: 10/18/24 Loc: CARD Attending Dr: Ester Cain M.D. Ordering Physician: Ester Cain M.D. Date of Service: 10/18/24 Procedure(s): CA echo doppler complete Accession Number(s): [id number] cc: Ester Cain M.D. Patient Name: RAZA RODRIGUEZ MR#: [id number] : 1955 Exam Date: 10/18/2024 Ordering Doctor: [...] MCCULLOUGH Signed By: 10/18/241901 DD/ 00 TD/TT: Timber Spotter:Troponin I High Sensitivity Reviewed date:07/06/2024 12:21:03 PM Interpretation: Performing Lab: Notes/Report: [facility] ,Troponin I High Etuqffqwfoy32.04.0-76.1 pg/mL CUT-OFF POINTS HAVE BEEN ESTABLISHED BASED ON THE FOURTH UNIVERSAL DEFINITION OF MYOCARDIAL INFARCTION. THE UPPER REFERENCE LIMIT (URL) OF TROPONIN, DEFINED THE 99TH PERCENTILE OF cTnI DISTRIBUTION IN A REFERENCE POPULATION, HAS BEEN CONFIRMED THE DECISION THRESHOLD FOR [place] DIAGNOSIS. 99TH PERCENTILE = 76.2 PG/ML NOTE: HIGH-SENSITIVITY TROPONIN ASSAY IS NOT INTENDED TO BE USED IN ISOLATION BUT SHOULD BE INTERPRETED IN CONJUNCTION WITH OTHER DIAGNOSTIC AND CLINICAL INFORMATION. Performing Lab:see noteML - [facility] Reviewed date:07/06/2024 12:21:03 PM Interpretation: Performing Lab: Notes/Report: [facility] ,Thyroid Stimulating Hormone2.3260.358-3.740 uIU/mLPerforming Lab:see note - [facility] LBT4 Reviewed date:07/06/2024 12:21:03 PM Interpretation: Performing Lab: Notes/Report: [facility] ,T4 Thyroxine5.404.50-12.10 ug/dLPerforming Lab:see note - [facility] LBPSA SCREENING Reviewed date:07/06/2024 12:21:03 PM Interpretation: Performing Lab: Notes/Report: [facility] ,Prostate Specific Antigen Scrn1.08<=4.00 ng/mLPerforming Lab:see note - [facility] LBPROF 14(COMP METB) Reviewed date:07/06/2024 12:21:03 PM Interpretation: Performing Lab: Notes/Report: [facility] ,Fbqbjp730311-716 mmol/LPotassium3.93.5-5.1 mmol/HWkhpqemg26650-104 mmol/LCarbon Jbcpcqd42.421.0-32.0 mmol/LAnion Gap14.7Otpfzkt8606-613 mg/dLBlood Urea Scrszanm76.07.0-18.0 mg/dLCreatinine0.950.70-1.30 mg/dLEstimated GFR ( Eugenie>60>=60 mL/min/1.73m 2Estimated GFR (Non- Gracie>60>=60 mL/min/1.73m 2BUN Creatinine Ratio21.6Rfnevfk2.28.5-10.1 mg/dLBilirubin Total0.90.2-1.0 mg/dL Aspartate Amino Vrzuehbvpyb8397-93 U/LAlanine Txvanznpsywjwlyt5102-69 U/L Alkaline Gpigykngxov5107-501 U/LTotal Protein6.16.4-8.2 g/dLAlbumin Level3.63.4- 5.0 g/dLGlobulin2.5Albumin Globulin Ratio1.4Performing Lab:see note - [facility] LBLIPID PROFILE Reviewed date:07/06/2024 12:21:03 PM Interpretation: Performing Lab: Notes/Report: [facility] ,Iyfqkfjcbbbkk25<=150 mg/mWHormvpdbcgf300<=200 mg/dLHDL Xsufyptrrbf7186-21 mg/dL > or =60 mg/dl - LOW CARDIOVASCULAR RISK <40 mg/dl - HIGH CARDIOVASCULAR RISK LDL Cholesterol Ogcfapdghb621.4 <100 mg/dl OPTIMAL 100-129 mg/dl NEAR OR ABOVE OPTIMAL 130-159 mg/dl BORDERLINE HIGH 160-189 mg/dl HIGH >190 mg/dl VERY HIGH VLDL RGXVXZLTRQR37.6Chol HDL Ratio3.8 3.3 - 4.4 LOW RISK 4.4 - 7.1 AVERAGE RISK 7.1 - 11.0 MODERATE RISK >11.0 HIGH RISK Performing Lab:see noteML - [facility] LBGLYCOHEMOGLOBIN A1C Reviewed date:07/06/2024 12:21:03 PM Interpretation: Performing Lab: Notes/Report: [facility] ,Glycohemoglobin A1C5.34.5-6.2 % ADA RECOMMENDED LIMIT 4.0 - 6.0 ADA THERAPEUTIC TARGET < 7.0 ACTION SUGGESTED > 7.0 Estimated Average Rwseolf019Cirlnlfhmo Lab:see noteThe [facility] LB FREE T3 Reviewed date:07/06/2024 12:21:03 PM Interpretation: Performing Lab: Notes/Report: [facility] ,Free T33.522.18-3.98 pg/mLPerforming Lab:see [facility] LB CBC AUTO DIFF Reviewed date:07/06/2024 12:21:03 PM Interpretation: Performing Lab: Notes/Report: [facility] ,White Blood Count6.94.0-11.0 10 3/uLRed Blood Count3.964.70-6.10 10 6/uL Waemvjyhdk25.814.0-18.0 g/uYUmptfseral89.442.0-54.0 %Mean Corpuscular Yelvvx71.4 80.0-94.0 fLMean Corpuscular Hmekuqymvj71.325.9-34.0 pgMean Corpuscular HGB Conc 34.229.9-35.2 g/dLRed Cell Distribution Width12.511.0-15.0 %Platelet Jufmo007 150-450 10 3/uLMean Platelet Vzrnky99.09.5-13.5 fLNeutrophils Percent Auto40.2 43.0-75.0 %Lymphocytes Percent Auto39.020.5-60.0 %Monocytes Percent Auto14.11.7- 12.0 %Eosinophils Percent Auto5.30.9-7.0 %Basophils Percent Auto0.70.2-2.0 % Immature Granulocytes Pct Auto0.70.0-0.5 %Neutrophils Absolute Auto2.81.4-6.5 10 3/uLLymphocytes Absolute Auto2.71.2-3.8 10 3/uLMonocytes Absolute Auto1.00.3- 0.8 10 3/uLEosinophils Absolute Auto0.40.0-0.7 10 3/uLBasophils Absolute Auto0.1 0.0-0.1 10 3/uLImmature Granulocytes Abs Auto0.050.00-0.03 10 3/uLPerforming Lab:see noteML - [facility] Reason For Referral Diagnosis 1 Essential (primary) hypertension (I10) Referral Organization [facility] Referring Provider First Name Micheal Referring Provider Last Name [facility] Tello Mccullough Referred Provider Specialty Cardiology Referral Priority Routine Reason and balance therapy Diagnosis 1 Radiculopathy, lumba r region (M54.16) Referral Organization [facility] Referring Provider First Name Micheal Referring Provider Last Name virgilio Referring Provider [facility] icine Referred Provider [facility], Physical Therap y Referred Provider Specialty Physical The rapist Referral Priority Routine Diagnosis 1 Shoulder impingement (M75.40) Referral Organization [facility] Referring Provider First Name Micheal Referring Provider Last Name virgilio Referring Provider [facility] icine Referred Provider [facility], Physical Therap y Referred Provider Specialty Physical The rapist Referral Priority Routine Diagnosis 1 Lumbar radiculopathy (M54.16) Referral Organization [facility] Referring Provider First Name Micheal Referring Provider Last Name [facility] Referring Provider [facility] icine Referred Provider Specialty Neurological Surgery Referral Priority Routine Diagnosis 1 Radiculopathy, cervi miranda region (M54.12) Referral Organization [facility] Referring Provider First Name Micheal Referring Provider Last Name [facility] Referring Provider [facility] icine Referred Provider [facility], Physical Therap y Referred Provider Specialty Physical The rapist Referral Priority Routine Medications Medication SIG (Take, Route, Frequency, Duration) Notes Start Date End Date Status tiZANidine HCl 4 MG TAKE 2 TABLETS BY MOUTH ONCE DAILY AT BEDTIME; Duration: 90 ActivePotassium Chloride ER 10 MEQ1 tablet with food Orally Twice a day; Duration: 30 day(s)5ActiveTadalafil 5 MGTAKE 1 TABLET BY MOUTH DAILY; Duration: 30ActiveCoreg 25 MG1 tablet with food Orally Twice a day; Duration: 30 days5ActiveFerrous Sulfate 325 (65 Fe) MG1 tablet Orally bid; Duration: 30 days5ActiveTriamcinolone Acetonide 0.1 %1 application Externally bid5ActivehydroCHLOROthiazide 25 MG1/2 tablet Orally Once a day5ActiveValium 10 MG 1 tablet as needed Orally once about 1 hour before procedure; Duration: 1 days F41.9 5ActiveTamsulosin HCl 0.4 MG1 capsule Orally Once a day; Duration: 30 day(s)5ActiveoxyCODONE HCl 5 MG1 tablets Orally every 4 hours; Duration: 14 days5ActiveIrbesartan 150 MG1 tablet Orally Once a day; Duration: 30 day(s)5ActiveMagnesium 400 MG1 tablet Orally once daily Active Social History Tobacco Use: Social History Observation Description Date Details (start date - stop date) Never Smoker NA - NA Tobacco Use/Smoking Question Answer Notes Patient is a nonsmoker Alcohol Screen (Audit-C) Question Answer Notes Did you have a drink containing alcohol in the p ast year? No Bcnohi4GnpukwwequlwuwPucwsirfCKUKG-V (Standard) Question Answer Notes Did you have a drink containing alcohol in the p ast year? No Hdbnrb0TovrpkhahcvexuOpoyvwug Problems Problem Type SNOMED Code ICD Code Onset Dates Problem Status W/U Status Risk Notes Problem Hypoglycemia (577252011) Hypoglycemia, un specified (E16.2) ActiveconfirmedProblemSupraventricular tachycardia (4790415)Supraventricular tachycardia (I47.1)ActiveconfirmedProblemVentricular premature depolarization (133211479)Ventricular premature depolarization (I49.3)ActiveconfirmedProblem Varicose veins of lower extremity (46521280)Asymptomatic varicose veins of unspecified lower extremity (I83.90)ActiveconfirmedProblemDiverticula of intestine (12440034)Diverticulosis of intestine, part unspecified, without perforation or abscess without bleeding (K57.90)ActiveconfirmedProblemSolitary sacroiliitis (254411697)Sacroiliitis, not elsewhere classified (M46.1)Active confirmedProblemCervical radiculopathy (87606318)Radiculopathy, cervical region (M54.12)ActiveconfirmedProblemLumbar radiculopathy (516370710)Radiculopathy, lumbar region (M54.16)ActiveconfirmedProblemBilateral impingement syndrome of shoulders (12482275407885736)Impingement syndrome of unspecified shoulder (M75.40)ActiveconfirmedProblemHypertension (54689800)Hypertension (I10)Active confirmedProblemCervical radiculopathy (67674653)Cervical radiculopathy (M54.12) ActiveconfirmedProblemEdema (27922635)Edema (R60.9)ActiveconfirmedProblemBenign prostatic hyperplasia (450483919)BPH (benign prostatic hyperplasia) (N40.0) ActiveconfirmedProblemLumbar radiculopathy (952273378)Lumbar radiculopathy (M54.16)ActiveconfirmedProblemAnkle sprain (92573634)Ankle sprain (S93.409A) ActiveconfirmedProblemVaricose veins (769985133)Varicose veins (I86.8)Active confirmedProblemCellulitis (583468817)Cellulitis (L03.90)ActiveconfirmedProblem Diverticular disease of colon (250885762)Sigmoid diverticulosis (K57.30)Active confirmedProblemPure hypercholesterolemia (106551283)Pure hypercholesterolemia, unspecified (E78.00)ActiveconfirmedProblemElevated PSA (676045439)Elevated prostate specific antigen [PSA] (R97.20)ActiveconfirmedProblemAnemia (509122193) Acute anemia (D64.9)ActiveconfirmedProblemCecal polyp (680076266)Cecal polyp (K63.5)Activeconfirmed Vital Signs Blood pressure diastolic 84 mm Hg 03/04/2025 Vcbbou46 in03/04/2025lood pressure cikwtiep528 mm Hg03/04/20250672Kxxmdr888.8 lbs 03/04/2025BMI28.72 kg/m203/04/2025 Procedures Procedure Date Ordered Date Performed Result Body Sit e CARDIO Echocardiogram 10/07/2024 N/A Encounters Encounter Location Date Provider Diagnosis [address] [address] 08/16/2024 Micheal Hoy Cellulitis L03.[address] [address] 09/13/2024 Micheal Hoy Cellulitis L03.[address] [address] 12/15/2024 Micheal Hoy Lumbar radiculopathy M54.[address] [address] 12/06/2024 Micheal Hoy Radiculopathy, lumba r region M54.16 ; Essential (primary) hypertension I10 and Shoulder impingement M75.40 [place] [address] [place] [address] 01/27/2025 Micheal Hoy Lumbar radiculopathy M54.[address] [address] 02/15/2025 Micheal Hoy Radiculopathy, cervi miranda region M54.12 and Radiculopathy, lumbar region M54.[address] [address] 03/04/2025 Micheal Hoy Hypertension I10 and BPH (benign prostatic hyperplasia) N40.[address] [address] 07/05/2024 Micheal Hoy Elevated troponin R7 7.8 ; Essential (primary) hypertension I10 ; Hypoglycemia, unspecified E16.2 and Iron deficiency E61.1 [place] [address] [place] [address] 10/11/2024 Micheal Hoy Essential (primary) hypertension I10 and Lumbar radiculopathy M54.16 [facility] [address] [facility] [place] [address] 09/27/2024 Micheal Hoy Hypoglycemia, unspecified E16.2 ; Acute anemia D64.9 and Radiculopathy, lumbar region M54.16 [place] [address] [place] [address] 10/07/2024 Micheal Hoy Edema R60.9 and Vari cose veins I86.8 [place] [address] [facility] [place] [address] 11/05/2024 Micheal Hoy Essential (primary) hypertension I10 and Radiculopathy, cervical region M54.12 [place] [address] [facility] [place] [address] 11/22/2024 Micheal Hoy Essential (primary) hypertension I10 ; Urinary frequency R35.0 and Radiculopathy, lumbar region M54.16 [place] [address] [facility] [place] [address] 2024 Micheal Hoy Radiculopathy, lumba r region M54.16 and Radiculopathy, cervical region M54.12 [place] [address] [facility] [place] [address] 05/03/2024 Micheal Hoy Ankle sprain S93.409 A ; Essential (primary) hypertension I10 ; Hypoglycemia, unspecified E16.2 ; BPH (benign prostatic hyperplasia) N40.0 and Pure hypercholesterolemia, unspecified E78.00 [place] [address] [place] [address] 05/13/2024 Micheal Hoy Radiculopathy, lumba r region M54.16 and Cervical radiculopathy M54.12 [facility] [address] [facility] [place] [address] 03/04/2025 Micheal Hoy [facility] [facility] [place] [address] 02/10/2025[facility] [place] [address]/07/2024Pamela CramerLumbar radiculopathy M54.16[facility] [place] [address]/11/2024Doug Hoy Lumbar radiculopathy M54.16[facility] [place] [address]/Doug HoyLumbar radiculopathy M54.16[facility] [facility] [address]/Doug Hoy Radiculopathy, cervical region M54.12[facility] [facility] [address]/[facility] [facility] [place] [address]/Doug Hoy Radiculopathy, lumbar region M54.16[facility] [facility] [address]/10/2024[facility] [address] [facility] [address]/12/2024Doug HoyRadiculopathy, lumbar region M54.16[facility] [facility] [address]/Doug HoyRadiculopathy, lumbar region M54.16[facility] [place] [address]/09/2024 Micheal HoyRadiculopathy, lumbar region M54.16[facility] [place] [address]/03/2024[facility] [place] [address]/Doug Hoy Radiculopathy, lumbar region M54.16[facility] [facility] [place] [address]/[facility] [address] [place] [address]/01/2025Doug HoyEssential (primary) hypertension Q01TgzffhgPenrose Hospital[address] [facility] [place] [address]/Doug HoyEssential (primary) hypertension I10 [facility] [facility] [place] [address] 11/03/2024[facility] [facility] [address]/03/2024[facility]oyB[facility] [facility] [address] [place] [facility] [place] [address]/06/2024Doug HoyRadiculopathy, lumbar region M54.16 [facility] [facility] [address]/06/2024[facility] [facility] [address]/02/2025Doug HoyElevated troponin R77.8BN[facility] [facility] [address]/Doug HoyElevated troponin R77.8BVP[facility] [facility] [place] [address]/11/2024Doug Ho[facility] [facility] [place] [address]/Doug HoyCellulitis L03.90[facility] [facility] [place] [address]/05/2024Doug Hoy Radiculopathy, lumbar region M54.16[facility] [facility] [address]/Doug HoyRadiculopathy, lumbar region M54.16[place] [address] [place] [address]/Doug Ho[facility] [facility] [place] [address]/Doug Ho[facility] [facility] [place] [address]/05/2024Doug HoyRadiculopathy, lumbar region M54.16[facility] [facility] [place] [address]/Doug HoyRadiculopathy, lumbar region M54.16[place] [address] [facility] [place] [address]/08/2024Doug Hoy Radiculopathy, lumbar region M54.16[place] [address] [place] [address]/Doug HoyRadiculopathy, lumbar region M54.16 and BPH (benign prostatic hyperplasia) N40.0[place] [address] [place] [address]/Doug Hoy Assessments Encounter Date Diagnosis (ICD Code) Assessment Notes Treatment Notes Treatment Clinical Notes Section Notes 2024 Radiculopathy, cervical region ( ICD-10 - M54.12) 2024Radiculopathy, lumbar region (ICD-10 - M54.16)05/03/2024Essential (primary) hypertension (ICD-10 - I10)05/03/2024Hypoglycemia, unspecified (ICD-10 - E16.2)05/03/2024PH (benign prostatic hyperplasia) (ICD-10 - N40.0)05/03/2024 Ankle sprain (ICD-10 - S93.409A)05/03/2024Pure hypercholesterolemia, unspecified (ICD-10 - E78.00)05/13/2024Radiculopathy, lumbar region (ICD-10 - M54.16) Unalbe to work due to cervical radiculopathy still wtih l;umbar radiculopathy 05/13/2024ervical radiculopathy (ICD-10 - M54.12)07/05/2024Essential (primary) hypertension (ICD-10 - I10)12/15/2024Lumbar radiculopathy (ICD-10 - M54.16) 01/27/2025Lumbar radiculopathy (ICD-10 - M54.16)02/15/2025Radiculopathy, cervical region (ICD-10 - M54.12)02/15/2025Radiculopathy, lumbar region (ICD-10 - M54.16)03/04/2025Hypertension (ICD-10 - I10)03/04/2025PH (benign prostatic hyperplasia) (ICD-10 - N40.0)04/26/2024Radiculopathy, lumbar region (ICD-10 - M54.16)05/10/2024Radiculopathy, lumbar region (ICD-10 - M54.16)06/11/2024 Radiculopathy, lumbar region (ICD-10 - M54.16)07/19/2024Elevated troponin (ICD- 10 - R77.8)08/03/2024Elevated troponin (ICD-10 - R77.8)09/27/2024Radiculopathy, lumbar region (ICD-10 - M54.16)10/18/2024Essential (primary) hypertension (ICD- 10 - I10)10/25/2024Essential (primary) hypertension (ICD-10 - I10)12/03/2024 Radiculopathy, lumbar region (ICD-10 - M54.16)12/31/2024Radiculopathy, lumbar region (ICD-10 - M54.16)02/15/2025Lumbar radiculopathy (ICD-10 - M54.16) 02/25/2025Lumbar radiculopathy (ICD-10 - M54.16)02/28/2025Radiculopathy, cervical region (ICD-10 - M54.12)05/24/2024Radiculopathy, lumbar region (ICD-10 - M54.16)03/29/2024Radiculopathy, lumbar region (ICD-10 - M54.16)07/05/2024 Elevated troponin (ICD-10 - R77.8)repeating - trop - he prefers - to repeat labs - sebas do stress yxzrocrs18/09/2025ellulitis (ICD-10 - L03.90)10/11/2024 Essential (primary) hypertension (ICD-10 - I10)10/11/2024Lumbar radiculopathy (ICD-10 - M54.16) refill pain mes Stil in PT anadha sfoot drop wearing AFO breace due to faicled lumbar disk surgery 09/13/2024ellulitis (ICD-10 - L03.90)09/27/2024Hypoglycemia, unspecified (ICD- 10 - E16.2)09/27/2024ute anemia (ICD-10 - D64.9)10/07/2024Edema (ICD-10 - R60.9)10/07/2024Varicose veins (ICD-10 - I86.8)11/05/2024Essential (primary) hypertension (ICD-10 - I10)11/22/2024Essential (primary) hypertension (ICD-10 - I10)03/15/2024Radiculopathy, lumbar region (ICD-10 - M54.16)08/30/2024ellulitis (ICD-10 - L03.90)04/12/2024Radiculopathy, lumbar region (ICD-10 - M54.16) 02/11/2025Lumbar radiculopathy (ICD-10 - M54.16)01/14/2025Radiculopathy, lumbar region (ICD-10 - M54.16)12/17/2024Radiculopathy, lumbar region (ICD-10 - M54.16) 11/22/2024Urinary frequency (ICD-10 - R35.0)12/06/2024Essential (primary) hypertension (ICD-10 - I10)12/06/2024Radiculopathy, lumbar region (ICD-10 - M54.16)12/06/2024Shoulder impingement (ICD-10 - M75.40)11/22/2024Radiculopathy, lumbar region (ICD-10 - M54.16)09/27/2024Radiculopathy, lumbar region (ICD-10 - M54.16)03/29/2024PH (benign prostatic hyperplasia) (ICD-10 - N40.0)07/05/2024 Hypoglycemia, unspecified (ICD-10 - E16.2)07/05/2024Iron deficiency (ICD-10 - E61.1)11/05/2024Radiculopathy, cervical region (ICD-10 - M54.12)2024Other Recommended to rest and use a heating pad on the area. Take NSAIDs for pain as anferp8601/27/2025OtherRecommended to rest and use a heating pad on the area. Take NSAIDs for pain as oznrnl3002/15/2025OtherRecommended to rest and use a heating pad on the area. Take NSAIDs for pain as needed Plan Of Treatment Pending Test Test Name Order Date Colonoscopy 08/15/2022 CMP (COMPLETE METABOLIC PANEL) 4 CMP (COMPLETE METABOLIC PANEL) HEMOGLOBIN A1C (GLYCO) 05/03/2024 HEMOGLOBIN A1C (GLYCO) 10/15/2023 HEMOGLOBIN A1C (GLYCO) 07/05/2024 HEMOGLOBIN A1C (GLYCO) 09/27/2024 LIPID PANEL (CHOL/TRIG/HDL/LDL) 07/06/19 25 LIPID PANEL (CHOL/TRIG/HDL/LDL) 05/03/19 25 CBC WITH DIFF (EXP 01/2025) 05/03/2024 CBC WITH DIFF (EXP 01/2025) 10/15/2023 CARDIO Echocardiogram 10/07/2024 Insulin Level 10/15/2023 CBC W/AUTO DIFF 08/28/2023 PSA, TOTAL 08/19/2022 High Sensitivity Troponin 07/05/2024 GLYCOHEMOGLOBIN A1C 03/04/2025 PROF 14(COMP METB) 03/04/2025 PROF 14(COMP METB) 08/19/2022 MRI LSPINE WO [...] Date Coverage End Date R [address] [address] [place] [address] [id number] Raza Rodriguez Self - patient is the insured 6 Medications Administered Medication Instructions Date of Administration Dosage Notes DEPO-Medrol km05Sqaosqpuavttd, 4mg/mL ks70Amzqcho-0820/17/2023120 mg120 mgKenalog-400 ja423Kygmrww-2369/25/2023120 tk467Pgjiffk-69 mgKenalog-401 hi828Nsoxuwu-6988/ mgKenalog-40 us861Vhftojm-2761/ mgKetorolac Viavgjuqtigl30/24/202360 hl91Ifwjyfxog Umsgqgfzvorf52/01/11971514Dbyusdwgb Zurgoofmlgba64/12/202360 mg60 Ketorolac Xhnecjcrxojk22/24/202360 pr35Tqiwbswnu Ghkdsxqmxxow66/23/202360 mg60 Ketorolac Huzrkdqarxbv36/25/202360 en30Tsctgjork Aexfdhflmzvb55/22/030734 mg Ketorolac Nasgimquavks37/13/621942 mg72Qyrmzadel Msdspkudkyvm84/14/044231 mg Ketorolac Nstmrvotobna97/29/917664 cr63Igqeyzrvi Fjsaaoxvmuzx94/15/228906 mg Ketorolac Nvhmhcreqoof19/07/896992 mgKetorolac Noiiatoddgom68/09/217613 mg Ketorolac Rczonwbmmqxo76/09/106087 mgKetorolac Plvogtnpbrco23/07/221387 mg Ketorolac Xxdwtcnhravn85/21/234174 mgKetorolac Iyvoaswojghq89/31/268554 mg Ketorolac Vsklwaidwydw58/29/467627 mgKetorolac Rittgfwwsafq10/08/163675 mg Orphenadrine Ekuxlcx770 ot05Mniywymxdzjz Kcjpswz650 mg60 Orphenadrine Tlvkueq700 ye81Rlyixbhtnmji Ljwqkfe51/24/987070 mg60 Orphenadrine Qfjqsti520 zf40Lbtxshxorois Rxcsggw24/25/221392 mg60 Orphenadrine Ijiapra470 mgOrphenadrine Bzhwbgp40/13/896501 mg60 Orphenadrine Rbpflha83/14/786331 mgOrphenadrine Cohzxpk52/29/128254 mg60 Orphenadrine Ohsmbbd39/15/665347 mgOrphenadrine Ndpnfou56/07/492485 mg Orphenadrine Zhcauxu19/09/760034 mgOrphenadrine Ailuovj20/07/113898 mg Orphenadrine Bxdxuin890 mgOrphenadrine Icabrae02/31/487465 mg Orphenadrine Teizcni14/29/783965 mgOrphenadrine Idcrfam72/08/302543 mg Medical (General) History Medical History History [...] hernia repair 05/02 Colonoscopy- Dr. Snell 11/26/[address] Snell 01/05/2025 laminectomy, lumbar exc Bx lesion nasal bridge11/2016Laminoplasty Cervical Spine06/01Lumbar Fusion L2-L508/19/2023Hospitalization History Reason Date(Month/Year) see above
--- OUTSIDE RECORDS SUMMARY | 2025-03-08 06:44 | XMS_ITS | Clinical Summary ---
Author Organization [facility] Healthcare Address [address] [place] [address] Care Team Providers Care Rice Drier Name Role Phone Devon Craven MD Primary Care Provider [phone] Allergies Active AllergyReactionsCriticalityNoted LorbAeyshnbwWawmqxkdlhwJhwzl94/11/2025 Zkdzcmkbtmepx62/11/2025 Medications MedicationSigDispense QuantityRefillsLast FilledStart DateEnd DateStatus Magnesium [...] Problems No known active problems Encounters DateTypeDepartmentCare TwtdGtjgluzgwuv63/07/2025 11:15 AM ESTOffice Visit RAMON [facility] [address] [facility] [place] [address] Mahamed Jeter, DPM PAD (peripheral artery disease) (Primary Dx); Pain of toe of right foot; Pain in toe of left foot; Pain of left foot; Pain around toenail, left foot; Pain around toenail, right foot; Foot drop, bilateral; Idiopathic peripheral neuropathy; Onychomycosis; Left foot pain01/14/2025amboo flowsheet [facility] [address] [place] [address] Mahamed Jeter DPM 01/14/20257042Oyljdw51/31/8862Gvxhgg69/15/2025bstract [facility] [place] [facility] [address] [place] [address] Mahamed Jeter DPM from Last 3 Months Family History Medical HistoryRelationNameCommentsMelanomaBrotherHeart diseaseFatherMelanoma FathercvaMotherRelationNameStatusCommentsBrotherFatherMother Social History Tobacco UseTypesPacks/DayYears UsedDateSmoking Tobacco: NeverSmokeless Tobacco: Never Tobacco Cessation:Counseling Given: Not Answered Alcohol UseStandard Drinks/WeekCommentsNever0 (1 standard drink = 0.6 oz pure alcohol)Sex and Gender InformationValueDate RecordedSex Assigned at BirthNot on fileLegal WsaCzxa8905/22/2022 7:12 PM EDTGender IdentityNot on fileSexual OrientationNot on file Last Filed Vital Signs Vital SignReadingTime TakenCommentsBlood Gsqtuajo719/80010/06/2024 4:07 PM EDT Lwplp7247/30/2025 4:07 PM WLGIuznyalospo47.1 ??C (98.7 ??F)10/06/2024 4:07 PM EDTRespiratory Rate--Oxygen Saturation--Inhaled Oxygen Concentration--Weight-- Height--Body Mass Index-- Plan of Treatment Health MaintenanceDue DateLast DoneCommentsCT Ojcdmhbjvojj82/03/1958FIT-DNA 1957FIT1957FOBT1957 5331Iwbmjyocifajl92/03/1958Pneumococcal Vaccine: 65+ Years (1 of 1 - PCV)2007Influenza Vaccine (#1)2024 12/29/20204484Bkzbxzqzjew51olorectal Cancer Zowczklen94/18/2034 Procedures Procedure NamePriorityDate/TimeAssociated DiagnosisCommentsXR FOOT 3+ VIEWS LEFT Yhpjoiv6003/06/2025 7:00 PM EST Pain in toe of left foot Pain of left foot XR FOOT 3+ VIEWS GDHKENvmtlfv45/28/2025 6:59 PM EST Pain of toe of right foot from Last 3 Months Results * XR foot 3+ views left (03/06/2025 7:00 PM EST)Anatomical RegionLaterality ModalityLower Extremities, FootLeftRadiographic ImagingSpecimen (Source) Anatomical Location / LateralityCollection Method / VolumeCollection Time Received Time Narrative 03/06/2025 7:00 PM EST Imaging Result: 01-14-2025: ??Left foot x-rays, weightbearing AP/MO/LAT views, obtained today shows: ?? Mild splaying between toe left wound, to lesser toes minimally contracted toes 4 and 5 are mild adductovarus. ??Lateral: Shows mild moderate pes planovalgus with significant folding of the navicular cuneiform joint and prominent dorsal navicular noted with mild spur proximally. ??No other pathology noted. Authorizing ProviderResult TypeResult StatusEugene Michael Jeter DPMI XR PROCEDURES Final Result * XR foot 3+ views right (03/06/2025 6:59 PM EST)Anatomical RegionLaterality ModalityLower Extremities, FootRightRadiographic ImagingSpecimen (Source) Anatomical Location / LateralityCollection Method / VolumeCollection Time Received Time Narrative 03/06/2025 6:59 PM EST Imaging Result: 01-14-2025: Right foot x-rays, weightbearing AP/MO/LAT views, obtained today shows: ?? Slight deviation of right hallux at the IPJ laterally, lesser toes minimally contracted with toes 4 and 5 mild adductovarus type, severe 1st MPJ joint space narrowing with a are through arthritic changes right foot 1st MPJ, lateral view: Mild to moderate pes planovalgus right foot with small calcific Achilles tendon at the insertion, mild Clint deformity right, spur formation dorsal 1st metatarsal with small exostosis in osteophyte noted. ??No other pathology noted. Authorizing ProviderResult TypeResult StatusEugene Michael Jeter DPMIMG XR PROCEDURES Final Result from Last 3 Months Insurance Care Teams Team MemberRelationshipSpecialtyStart DateEnd Devon Craven MD [address] [place] [address] PCP - GeneralFamily Medicine09/08/24
--- OUTSIDE RECORDS SUMMARY | 2025-03-08 06:45 | XMS_ITS | Clinical Summary ---
Author Organization [facility] Address [address] [place], [place] [id number] Care Team Providers Care Smelting Engineer Name Role Phone Devon Craven MD Primary Care Provider [phone] Jones Keith Md MD Unavailable Unavailable Allergies Active AllergyReactionsCriticalityNoted DbguAzvazvgoJdndvbjxcxmVzjp02/27/2007 EhsybfnoamptbIztxntekmqg99/04/2024 Medications MedicationSigDispense QuantityRefillsLast FilledStart DateEnd DateStatus furosemide [...] Active Problems ProblemNoted DateDiagnosed DateS/P cervical spinal wngeox2906/08/2024 Assessment & Plan (06/08/2024 10:15 AM EDT): [...] -Plan discussed with Jones Hogue MD Elevated qidzcfsi42/01/2025 Assessment & Plan (06/08/2024 2:03 PM EDT): [...] regression. -Evaluate: test results Cervical spondylosis with ioyjolmlvd82/27/2025 Assessment & Plan (06/08/2024 10:15 AM EDT): [...] with Dr. Keith. Recommend patient wear a [place] J cervical collar for 4 weeks after [...] with Dr. Keith. Recommend patient wear a [place] J cervical collar for 4 weeks after [...] -Continue prn oxycodone Edema of both lower /01/2024Localized swelling of lower extremity 09/08/2023ain and swelling of lower tybxitclr14/01/2024 Assessment & Plan (09/10/2023 12:51 PM EDT): [...] improvement in R foot drop S/P lumbar yrnexk4508/19/2023 Assessment & Plan (09/10/2023 12:51 PM EDT): Assessment: S/p L2-5 OLIF on 08/18 PLAN: -Pain control: continue present regimen -PT/OT rec [facility] -MRI today -DVT ppx: continue IPCs, heparin [...] screws PLAN: -See degenerative scoliosis POC Primary xuamzhbkvmpm59/29/2024 Assessment & Plan (06/08/2024 10:16 AM EDT): [...] POA PLAN: -Resume coreg History of penicillin qotufyg9508/06/2023SVT (supraventricular tachycardia) 08/06/2023 Assessment & Plan (06/07/2024 [...] home coreg Benign neoplasm of skin, site qwdeccxhfyy38/02/2009Other seborrheic keratosis 09/08/2008ENIGN NEOPLASM SKIN NEC-exam08/05/2008Neoplasm of uncertain behavior of skin08/05/2008 Family History Medical HistoryRelationCommentsCancerFathermalignant melanomaRelationStatus CommentsFather Social History Tobacco UseTypesPacks/DayYears UsedDateSmoking Tobacco: NeverSmokeless Tobacco: FormerChewQuit: 2000 Tobacco Cessation:Counseling Given: Not Answered Alcohol UseStandard Drinks/WeekCommentsNever0 (1 standard drink = 0.6 oz pure alcohol)[facility] UtilitiesAnswerDate RecordedIn the past 12 months has the [employer], gas, oil, or water [employer] threatened to shut off services in your home?No 08/20/2023HQ-2AnswerDate RecordedPHQ-2 nhuav717Hunger Vital SignAnswer Date RecordedWithin the past 12 [...] steady place to sleep or slept in [facility] (including now)?No08/20/2023rea Deprivation IndexAnswerDate RecordedNational Score (1-100), lower number is lower risk61 08/06/2023State Score (1-10), lower number is lower leop937ata from: https://www.neighborhoodatlas.[facility].edu/. Last address used for cedmrqinjtc[address]08/06/2023Sex and Gender InformationValueDate RecordedSex Assigned at AsugdEiop02/11/2024 4:19 AM ESTLegal RgpDvnq58/02/2012 10:36 AM EST Gender DbonflijAetq80/11/2024 4:19 AM ESTSexual KnruszmuoydAfscbqqf74/11/2024 4:19 AM EST Last Filed Vital Signs Vital SignReadingTime TakenCommentsBlood Izpewozt422/7904 9:53 AM EDT Akxxu341506/16/2024 9:53 AM MQMQbphrooyrwp39.8 ??C (98.3 ??F)06/16/2024 9:53 AM EDTRespiratory Bvsv661406/08/2024 1:48 PM EDTOxygen Gjuxsiffyx81%06/16/2024 9:53 AM EDTInhaled Oxygen Concentration--Matope98 kg (205 lb)05/12/2024 11:13 AM EST Yibvak262.9 cm (6')05/12/2024 11:13 AM ESTBody Mass Index27.803 11:13 AM EST Plan of Treatment Health MaintenanceDue DateLast DoneCommentsAnnual PCP Team Chronic Disease Visit 1975Anxiety Yigqcdxqp81/03/1976Depression Tidesgven54/03/1976Hepatitis C Zixgxsjmu52/03/1976DTaP,Tdap,Td Vaccine (1 - Tdap)1976Lipid Screening 1992CT Roozgvzhwldi66/03/2003Cologuard (FIT-DNA)2002Colonoscopy 2002Colorectal Cancer Hrdsyzafw71/03/2003Fecal Occult Blood2002 Wctgclvbehvuf84/03/2003Pneumococcal Vaccine: 50+ (1 of 1 - PCV)2007RSV Vaccine (1 - Risk 50-74 years 1-dose series)2007Shingrix Vaccine (1 of 2) 2007dvance Directive Cflsombkyn46/01/2025Covid-19 Vaccine ( season)/, 06/09/2020, 05/19/2020Influenza Vaccine (#1) /rostate Cancer Screening Rltvwfknqs72 Diabetes Xltwhzeuz66/03/2024, 06/07/2024, 06/06/2024, Additional history exists Medical Devices ImplantedTypeAreaManufacturerDevice IdentifierShelf Expiration DateModel / Serial / LotSignify Gel Instafill Cartridge 5cc [id number] Implanted:Qty[facility]/A: Spine - Lumbar GLOBUS BSCKPAE54/19/[id number] / / [id number] Locking Cap Implanted:Qty: 8 on [facility]/A: Spine - Lumbar GLOBUS [id number] / / Graft Infuse 20ga Medium Bovine Collagen Rhbmp-2 2x1in Bone Vial Absorbable - [id number] Implanted:Qty: 1 on 08/19/2023 by Jones Keith MD at [facility]/A: Spine - LumbarMEDTRONIC SOFAMOR [id number] / / [id number] Gel Instafill Cartridge 5cc [id number] Implanted:Qty: 1 on 08/19/2023 at [facility]/A: Spine - LumbarGLOBUS ZVAEZJY65/19/[id number] / / [id number] Canopy 9mm Bone Shelf Inline Spine - [id number] Implanted:Qty: 3 on [facility]02/20[facility]/A: Spine - Cervical GLOBUS [id number] / / Creo Mis 5.5mm Curved Asa Ti Alloy 10cm Implanted:Qty: 1 on 08/19/2023 at [facility]/A: Spine - LumbarGLOBUS [id number] / / Creo Mis 5.5mm Curved Asa Ti Alloy 11cm Implanted:Qty: 1 on 08/19/2023 at [facility]/A: Spine - LumbarGLOBUS [id number] / / 4.5x45 Implanted:Qty: 1 on 08/19/2023 at [facility]/A: Spine - LumbarGLOBUS [id number] / / 5.0x45 Implanted:Qty: 1 on 08/19/2023 at [facility]/A: Spine - LumbarGLOBUS [id number] / / Creo One Robotic Modular Screw 6.5mm X 50mm Implanted:Qty: 2 on 08/19/2023 at [facility]/A: Spine - LumbarGLOBUS [id number] / / Creo One Robotic Modular Screw 6.5mm X 55mm Implanted:Qty: 4 on 08/19/2023 at [facility]/A: Spine - LumbarGLOBUS [id number] / / Screw Canopy 2.6mm 4mm Bone Self Drill Laminoplasty Spine - [id number] Implanted:Qty: 5 on 06/02/2024 at [facility]/A: Spine - Cervical GLOBUS [id number] / / Canopy 2.6mm Screw Self-Drilling 6mm Implanted:Qty: 6 on 06/02/2024 at [facility]/A: Spine - Cervical GLOBUS [id number] / / Bilat Iol 11/2022Eye - CorneaSpacer Rise-L 3d Lordotic [id number] Spinal Nonsterile Implanted:Qty: 1 on 08/19/2023 at [facility]/A: Spine - LumbarGLOBUS [id number] / / Spacer Rise-L 3d Lordotic [id number] Spinal Nonsterile Implanted:Qty: 2 on 08/19/2023 at [facility]/A: Spine - LumbarGLOBUS [id number] / / Procedures Procedure NamePriorityDate/TimeAssociated DiagnosisCommentsEXTERNAL IMAGING 03/04/2025 2:54 PM EST COMPREHENSIVE METABOLIC NJSRVEttojgk21/01/2025 6:26 AM EDT from Last 3 Months or Most Recently Relevant to Health Maintenance Results * EXTERNAL IMAGING (03/04/2025 2:54 PM EST)Anatomical RegionLateralityModality Other Narrative Authorizing ProviderResult TypeResult StatusExternal Provider PA-CRADIOLOGYFinal Result * (ABNORMAL) COMPREHENSIVE METABOLIC PANEL (06/08/2024 6:26 AM EDT)Component ValueRef RangeTest MethodAnalysis TimePerformed AtPathologist Signature Protein, Total6.1(L)6.3 - 8.0 g/dL06/08/2024 9:32 AM [facility] LABAlbumin3.5(L)3.9 - 4.9 g/dL06/08/2024 9:32 AM [facility] LABCalcium, Total9.58.5 - 10.2 mg/dL06/08/2024 9:32 AM EDT [facility] LABBilirubin, Total0.80.2 - 1.3 mg/dL06/08/2024 9:32 AM [facility] LABAlkaline Qxblyknfwuy6728 - 113 U/L 06/08/2024 9:32 AM [facility] HOAXIR7554 - 40 U/L 06/08/2024 9:32 AM [facility] LABComment:Results may be falsely increased due to interference from hemolysis. Suggest reorder as clinically indicated.OIS5085 - 54 U/L06/08/2024 9:32 AM [facility] ZESKgkvzdj7084 - 99 mg/dL06/08/2024 9:32 AM [facility] LABComment: The [place] Diabetes Association (ADA) provides guidance for cutoff [...] Standards of Medical Care in Diabetes 2016, [place] Diabetes Association. Diabetes Care. 2016.39(Suppl 1). VUN764 - 24 mg/dL06/08/2024 9:32 AM [facility] Creatinine0.760.73 - 1.22 mg/dL06/08/2024 9:32 AM [facility] EUOGbzeao272631 - 144 mmol/L06/08/2024 9:32 AM [facility] LABPotassium4.23.7 - 5.1 mmol/L06/08/2024 9:32 AM [facility] PNIFucynrjn62037 - 107 mmol/L06/08/2024 9:32 AM [facility] WHRLW38090 - 30 mmol/L06/08/2024 9:32 AM [facility] LABAnion Zay126 - 15 mmol/L06/08/2024 9:32 AM [facility] LABEstimated Glomerular Filtration Rate99>=60 mL/min/1.73m 06/08/2024 9:32 AM [facility] LABComment:Estimated Glomerular Filtration Rate (eGFR) is calculated [...] VolumeCollection TimeReceived TimeBloodBLOOD SPECIMEN / UnknownVenipuncture / Rpjlrto6706/08/2024 6:26 AM EDT06/08/2024 7:08 AM EDT Narrative Authorizing ProviderResult TypeResult StatusSteven R Lane DIRECTOR BROADCAST.CNPLABORATORY Final ResultPerforming OrganizationAddressCity/State/ZIP CodePhone Number [facility] [address] [address], from Last 3 Months or Most Recently Relevant to Health Maintenance Insurance Advance Directives * Full Code (Latest Code Status on File) Date ActivatedDate InactivatedComments09/08/2023 1:22 AM09/10/2023 7:51 PMQuestion AnswerCommentsFull Code Order Discussed With:* Patient Care Teams Team MemberRelationshipSpecialtyStart DateEnd Date Devon Craven MD PCP - General05/05/06 Jones Keith Md, Spine Health09/07/23
[2025-03-08 07:51] LABS: Alanine Aminotransferase 26 U/L (16-63); Albumin Globulin Ratio 1.3; Albumin Level 3.8 g/dL (3.4-5.0); Alkaline Phosphatase 100 U/L (46-116); Anion Gap 11.4; Aspartate Amino Transferase 25 U/L (15-37); Blood Urea Nitrogen 24.0 mg/dL (7.0-18.0); Calcium 9.5 mg/dL (8.5-10.1); Carbon Dioxide 31.0 mmol/L (21.0-32.0); Chloride 104 mmol/L (98-107); Estimated GFR (African America >60 (>=60 mL/min/1.73m^2); Estimated GFR (Non-African Ame 58 (>=60 mL/min/1.73m^2); Globulin 3.0 g/dL; Glucose 105 mg/dL (74-106); Potassium 4.4 mmol/L (3.5-5.1); Sodium 142 mmol/L (136-145); Total Protein 6.8 g/dL (6.4-8.2)
== END 2025-03-08 06:40 | disposition home or self-care (01) ==
LOC: LAB 06:40
PROVIDERS: PCP Family Medicine; Visit Provider Family Medicine
DX: R73.09 Other abnormal glucose (principal); I10 Essential (primary) hypertension
CPT/HCPCS: 36415; 80053; 83036